=== PATIENT | male | born 1930 | race Caucasian/White ===

== ENCOUNTER 2017-06-23 21:22 | Inpatient (IN) | payer MEDICARE, OTHER ==
[~2017-06-23] VITALS: Ht 165.1 cm; Wt 80.0 kg
[~2017-06-23 21:22] MED LIST: AMLODIPINE BESY10 MG PO; CALCIUM 1,0001 EACH PO; FISH OIL500 MG PO; GLIPIZIDE5 MG PO; LASIX20 MG PO; LASIX40 MG PO; LISINOPRIL20 MG PO; MACULAR VITAMI1 EACH PO; METFORMIN HCL500 MG PO; METOPROLOL SUCC50 MG PO; METOPROLOL TART50 MG PO; OMEPRAZOLE20 MG PO; PERCOCET 7.5-31 EACH PO; PRAVASTATIN SOD20 MG PO; TERAZOSIN HCL10 MG PO; VITAMIN C500 M1 PO; WARFARIN SODIUM5 MG PO
--- NOTE | 2017-06-24 01:00 | NUR ---
UP TO BSC FOR LIQUID STOOL, 200ML DARK RED BLOOD WITH CLOT. C/O SLIGHT DIZZINESS WHILE UP, HR REMAINS 60. THEN BACK TO BED WITH CALL LIGHT IN HAND, SIDE RAILS UP, WILL CALL WITH ANY NEEDS.
--- NOTE | 2017-06-24 01:27 | NUR ---
AWAITING SECOND UNIT OF FFP FROM LAB.
--- NOTE | 2017-06-24 02:38 | NUR ---
UP TO BSC FOR LIQUID DARK RED STOOL APPROX 200ML. SECOND UNIT OF FFP STARTED INFUSING. HR 60, RR 24, ROOM AIR SPO2 97% LAST BP 123/41 MAP 63. IN BED, TRYING TO GO BACK TO SLEEP. CALL LIGHT IN HAND.
--- NOTE | 2017-06-24 04:28 | NUR ---
UP TO BSC FOR LIQUID DARK RED STOOL AND TO VOID. BECAME LIGHTHEADED WHILE UP, HR REMAINS 60'S, BACK TO BED WITH ASSIST. CALL LIGHT IN HAND, WILL CALL WITH FURTHER NEEDS.
--- NOTE | 2017-06-24 04:31 | NUR ---
SECOND UNIT OF FFP HAS JUST FINISHED INFUSING.
--- NOTE | 2017-06-24 05:50 | NUR ---
PT UP TO BSC FOR 250ML LIQUID DARK RED STOOL AND 100ML VOID, PT MORE LIGHTHEADED AND DIZZY THIS TIME "THINGS WERE REALLY SPINNING THERE FOR A WHILE" RECOVERS AFTER APPROX 5 MINUTES. DURING THE TIME BP WAS TAKEN AND WAS 94/32 MAP 48 HR 60. REPEATED ONCE PT BACK IN BED AND IT WAS 127/[address] FERRER CALLED AND UPDATED. AWAITING LAB RESULTS. ORDER GIVEN FOR 500ML LR BOLUS NOW, BOLUS STARTED. PT IN BED, AWAKE, NO COMPLAINTS AT THIS TIME, NO SX AND THIS TIME. HR REMAINS 60, RR 22 96% ON ROOM AIR.
--- NOTE | 2017-06-24 06:12 | NUR ---
LAB RESULTS CALLED TO DR FERRER, ORDER GIVEN TO TRANSFUSE 2 UNITS PRBC.
--- NOTE | 2017-06-24 06:29 | NUR ---
FIRST UNIT OF PRBCS STARTED INFUSING. PT NEEDS TO HAVE ANOTHER BM, PLACED ON BEDPAN.
--- NOTE | 2017-06-24 06:41 | NUR ---
PT CALLED TO UPDATE HER, PLANS TO COME TO HOSPITAL AROUND NINE.
--- NOTE | 2017-06-24 06:56 | NUR ---
PT HAD 100ML RED STOOL ON BEDPAN. FIRST UNIT OF BLOOD CONTINUES TO INFUSE.
--- NOTE | 2017-06-24 07:42 | NUR ---
PT CARE ASSUMED. PT RESTING IN BED. WAKES EASILY TO NURSE IN ROOM. 1ST UNIT OF PRBCS TRANSFUSING. PT STATES NO PAIN OR DIZZINESS AT THIS TIME. NEDIES FURTHER NEEDS.
--- NOTE | 2017-06-24 07:49 | NUR ---
CALL TO LAB REQUSTING ETA OF FFP FOR PT, LAB UNAVAILABLE AT THIS TIME.
--- NOTE | 2017-06-24 08:41 | NUR ---
PT ONTO BED BANGURA FOR POSSIBLE BM. 1ST UNIT PRBCS COMPLETE, SECOND UNIT STARTED. 1ST UNIT OF FFP COMPLETE. PT TOLERATING WELL. LUNGS REMAIN CLEAR.
--- NOTE | 2017-06-24 09:20 | NUR ---
SECOND UNIT OF FFP STARTED. PTS AT BEDSIDE.
--- NOTE | 2017-06-24 10:49 | NUR ---
SECOND UNIT OF BLOOD COMPLETE. PT RESTING, AT BEDSIDE
--- NOTE | 2017-06-24 11:28 | NUR ---
PT RESTING IN BED. AT BEDSIDE. WAKES EASILY TO NURSE IN ROOM. DENIES NEEDS
--- NOTE | 2017-06-24 11:41 | NUR ---
PT REQUESTING TO USE BED BANGURA, NO BM AT THIS TIME.
--- NOTE | 2017-06-24 11:42 | NUR ---
PT IN ROOM USING INSENTIVE SPIROMETRY
--- NOTE | 2017-06-24 12:06 | NUR ---
DR NABIL BEAULIEU'ED PT TO HAVE SMALL AMOUNTS OF ICE CHIPS, ICE GIVEN TO PT.
--- NOTE | 2017-06-24 14:39 | NUR ---
PT UP IN BED VISITING WITH . DENIES NEEDS AT THIS TIME. PT USED URINAL ON OWN.
--- NOTE | 2017-06-24 15:19 | NUR ---
PT REQUESTING BED BANGURA FOR BOWEL MOVEMENT.
--- NOTE | 2017-06-24 15:24 | NUR ---
NO BM OR BLOOD AT THIS TIME.
--- NOTE | 2017-06-24 15:49 | NUR ---
DR JACKSON IN TO SEE PT
--- NOTE | 2017-06-24 16:10 | NUR ---
PT SIGNED CONSENT FOR OR.
--- NOTE | 2017-06-24 16:45 | NUR ---
BOWEL PREP STARTED. PT SITTING UP IN BED. DENIES ANY DIZZINESS AT THIS TIME. WOULD LIKE TO TRY THE BED SIDE COMMODE WHEN IT IS TIME TO START HAVING MORE FREQUENT BMS.
--- NOTE | 2017-06-24 17:37 | NUR ---
pt up to bedside commode for bm, denies dizziness at this time. steady on feet.
--- NOTE | 2017-06-24 18:07 | NUR ---
PT CONTINUES TO SIT ON BEDSIDE COMMODE. PT STATES THAT STOOL CONTINUES TO COME. STATES FEELING SLIGHTLY LIGHTHEADED WHEN MOVING AROUND, THOUGH SAYS HE IS OKAY SITTING STILL. LAB IN UNIT TO DRAW BLOOD WHEN PT IS FINISHED.
--- NOTE | 2017-06-24 19:45 | NUR ---
pt shift report recived from day shift rn. pt resting in bed at this time. all questions answered. will continue to monitor.
--- NOTE | 2017-06-24 20:15 | NUR ---
ASSISSTED PT TO BEDSIDE CAMMODE PT TOLERATED WELL. STOOL LOOSE BROWN IN COLOR WITH LITTLE RED TINGED. PT BOWEL TONES ACITVE. LUNGS CLEAR. PULSES STRONG. PT ALERT AND ORIENTED. CALLS APPORPRIATELY. CALL LIGHT IN REACH. BED IN LOWEST POSITION.
--- NOTE | 2017-06-24 20:45 | NUR ---
wharf labourer to floor to explain lab mistake. wharf labourer entered results as 0614 instead of 181. notified of results and mistake.
--- NOTE | 2017-06-24 22:30 | NUR ---
PT CALLED TO USE BEDSIDE CAMMODE. PT TOLERATED WELL. NO OTHER ISSUES AT THIS TIME. WILL CONTINUE TO MONITOR. CALL LIGHT IN HAND.
--- NOTE | 2017-06-25 | NUR ---
PT NPO AT MIDNIGHT PER ORDERS.
--- NOTE | 2017-06-25 00:15 | NUR ---
PT RESTING IN BED AT THIS TIME. PT DENIES ANY NEEDS. CALL LIGHT IN HAND. WILL COTNINUE TO MONITOR.
--- NOTE | 2017-06-25 01:44 | NUR ---
PT UP TO CAMMODE MULTIPLE TIMES IN LAST HALF HOUR. PT STOOL CLEARING UP MORE. PT TOLERATED WELL. CALLED RT TO LISTEN TO PT. PT HAS A IN WHEEZE NOTED AND ON 1L OXYGEN WITH DEEP SLEEP. NO OTHER ISSUES AT THIS TIME. WILL CONTINUE TO MONITOR.
--- NOTE | 2017-06-25 01:45 | NUR ---
PT DNIES SOB RESPIRATORY RATE 22-24. WHEN I ASKED PT IF HE USES ANYTHING AT HOME TO HELP HIS BREATHING PT STATED "I USE THIS OIL FROM [employer] CALLED [employer] THAT WORKS WLL FOR ME". NO OTHER ISSUES AT THIS TIME WILL CONTINUE TO CLOSELY MONITOR.
--- NOTE | 2017-06-25 03:16 | NUR ---
PT RESTING IN BED. IN TO CHANGE IV FLUIDS. PT IS A LIGHT SLEEPER AND AWOKEN. PT DENEID ANY NEEDS AT THIS TIME. CALL LIGHT IN HAND. WILL CONTINUE TO MONITOR.
--- NOTE | 2017-06-25 04:28 | NUR ---
UPDATED MD REGUARDING PT ON 1L NC AND OCCASIONAL WHEEZE. NEW ORDER FOR PRN DUO NEB NEEDED. UPDATED RT. PT SLEEPING AT THIS TIME. WILL CONTINUE TO MONITOR.
--- NOTE | 2017-06-25 05:13 | NUR ---
UPDATED MD PT RECIVED NEB AND HAS NOW DEVELOPED BILATERAL LOWER LOBES CRACKLES. PT NPO AT THIS TIME. PER MD GIVE LASIX AND STOP FLUIDS AT THIS TIME. WILL CONTINUE TO CLOSELY MONITOR.
--- NOTE | 2017-06-25 06:28 | NUR ---
PT NOW RESTING IN BED WITH OXYGEN AT 1L VIA NC WITH SPO2 93-96%. GAVE PRN NEB AND LASIX. WILL CONTINUE TO CLOSELY MONITOR PT.
--- NOTE | 2017-06-25 07:41 | NUR ---
PT UP TO BEDSIDE COMMODE AND BACK TO BED. DENIES SHORTNESS OF BREATH. PT STATED, "ILL I WANT IS SOMETHING TO DRINK". DISCUSSED PLAN OF CARE AND APPROXIMATE TIME OF SCOPE THIS AM. PT VERBALIZED UNDERSTANDING.
--- NOTE | 2017-06-25 07:49 | NUR ---
RT IN ROOM WITH PT.
--- NOTE | 2017-06-25 08:03 | NUR ---
GAVE PT WARM WASH CLOTH FOR FACE AND MOUTH WASH PER PT REQUEST.
--- NOTE | 2017-06-25 09:03 | NUR ---
PT UP TO BEDSIDE COMMODE AND BACK TO BED. PT HAD SMALL LIQUID STOOL. STOOL MOSTLY CLEAR. NO BLOOD VISIBLE BLOOD IN STOOL.
--- NOTE | 2017-06-25 09:49 | NUR ---
PT RESTING IN BED. DENIES NEEDS AT THIS TIME. CALL LIGHT WITHIN REACH.
--- NOTE | 2017-06-25 11:08 | NUR ---
PT UP TO BEDSIDE COMMODE AND BACK TO BED. PT HAD MILD SHORTNESS OF BREATH WITH ACTIVITY. REMAINS ON 1L NC.
--- NOTE | 2017-06-25 12:15 | NUR ---
PT UP TO BEDSIDE COMMODE AND BACK TO BED. PT COMPLAINED OF SHORTNESS OF BREATH. AUDIBLE WHEEZES HEARD. RT CALLED FOR NEB TREATMENT.
--- NOTE | 2017-06-25 12:50 | NUR ---
PT LEFT FOR SURGERY VIA STRETCHER.
--- NOTE | 2017-06-25 13:26 | NUR ---
06/25/17 1326 Raissa Gu 1324: PT IS BACK IN HIS ROOM IN CCU
--- NOTE | 2017-06-25 13:30 | NUR ---
PT BACK TO ROOM. RECOVERY NURSE AND BONDING AGENT IN ROOM WITH PT.
--- NOTE | 2017-06-25 14:05 | NUR ---
care taken over from recovery nurse Raissa. discussed plan of care with pt and family. will be moving pt to med-surg floor rm 114.
--- NOTE | 2017-06-25 14:06 | NUR ---
pt requesting food. gave warm broth and pudding to start.
--- NOTE | 2017-06-25 14:41 | NUR ---
TRANSFERED PT TO ROOM 114. REPORT GIVEN TO TIFFANY VILLAR.
--- NOTE | 2017-06-25 15:45 | NUR ---
PATIENT TO FLOOR FROM CCU, VS STABLE. PATIENT ORIENTED TO ROOM. FULL BODY ASSESMENT DONE. DINNER ORDER PLACED. PATIENT FAMILY AT BEDSIDE. URINAL WITHIN REACH. DISCUSSED FALL SAFETY AND IMPORTANCE OF CALLING, PATIENT AND FAMILY VERBALIZED UNDERSTANDING.
--- NOTE | 2017-06-25 18:08 | NUR ---
PATIENT TO FLOOR FROM CCU, NO COMPLAINTS OF PAIN. NO EMESIS, OR BLOODY STOOL SINCE BOWEL PREP. UPPER AND LOWER SCOPE DONE TODAY, NO IDENTIFICATION OF SOURCE OF BLEEDING, POSSIBLE DIVERTICULI. VS STABLE. PATIENT AAOX3. URINAL IN REACH. PATIENT ON LASIX FOR SOME FLUID OVERLOAD. CRACKLES IN LUNGS L>R. HX OF AFIB, HAS PACEMAKER.
--- NOTE | 2017-06-25 21:36 | NUR ---
PT LAYING IN BED AND WATCHING TV. NO APPARENT DISTRESS. PLEASENT AND FRIENDLY DEMEANOR. DENIES PAIN, STATES "I HAVENT HAD ANY PAIN EVER, SINCE MARILEE BEEN HERE." PT HAS NO FURTHER NEEDS AT THIS TIME. CALL LIGHT IN REACH.
--- NOTE | 2017-06-25 23:48 | NUR ---
PT APPEARS TO BE SLEEPING. RR WNL AND UNLABORED. LIGHTS AND TV OFF IN ROOM.
--- NOTE | 2017-06-26 03:20 | NUR ---
PT CALLED NURSES STATION WITH CALL LIGHT. REQUESTED TO GET UP TO BATHROOM FOR A BM. PT STATED "IT WAS JUST A BUNCH OF GAS." PT BACK IN BED. NO FURTHER NEEDS AT THIS TIME. CALL LIGHT IN REACH.
--- NOTE | 2017-06-26 04:02 | NUR ---
PT HAD UNEVENTFUL NIGHT. SLEPT MAJORITY OF SHIFT. NO COMPLAINTS OF PAIN OR NAUSEA OVERNIGHT. ALERT AND ORIENTED. USES CALL LIGHT APPROPRIATLY. PLEASENT DEMEANOR.
--- NOTE | 2017-06-26 07:00 | NUR ---
REPORT GIVEN FROM IBRAHIMA VILLAR. INTRODUCED TO PATIENT AND .
--- NOTE | 2017-06-26 07:45 | NUR ---
ROUNDED WITH DR. FERRER IN ROOM. PLAN TO DISCHARGE TODAY.
[2017-06-26] MEDS ORDERED: WARFARIN SODIUM5 MG PO (08:16)
--- NOTE | 2017-06-26 09:57 | NUR ---
AMBULATED PATIENT IN THE H[place]MAN[place] ON RA. PATIENT CONT. TO SAT 94-100 PERCENT WHILE AMBULATING ON RA. PATIENT WAS NOT DIZZY OR LIGHT HEADED WITH AMBULATION.
--- NOTE | 2017-06-26 11:07 | NUR ---
RECIEVED APPOINTMENT FOR [facility] PHARMACY CALLED TO COME VISIT WITH PATIENT.
--- NOTE | 2017-06-26 11:37 | NUR ---
discharge education given to patient and . patient was able to reback information amount coumadin dose and follow up appointment. patient requested to eat fruit plate before getting taxi ride home. call light in bed with patient. to call when done with lunch.
--- NOTE | 2017-06-27 10:18 | CONS ---
[facility] [address], [place] [address] Signed DATE OF CONSULTATION: 06/24/2017 CONSULTING PHYSICIAN: Kevin Jackson MD REQUESTING PHYSICIAN: Risa Brito MD PROBLEM: Hematochezia and anticoagulation with Coumadin. HISTORY OF PRESENT ILLNESS: This 87-year-old white man was admitted by Dr. Brito for lower gastrointestinal bleeding. He is known to me from the past in October of 2015, having had acute cholecystitis as well as postoperative phimosis requiring dorsal slit procedure. He is chronically anticoagulated for Coumadin as he was previously. The patient is chronically anticoagulated related to atrial fibrillation and presented with bright red rectal bleeding since 5:30 in the morning. Had least 12 episodes of bright red blood mixed with stool. Had no associated abdominal pain and absolutely no hematemesis. He was admitted to the intensive care unit, where he was carefully monitored and his anticoagulation reversed with fresh frozen plasma as well as vitamin K. His presenting hematocrit was 27.5 with platelet count of 193,000. Liver enzymes and chem profile were grossly normal, though creatinine is slightly elevated at 1.40. He did have some bleeding since admission, but now that his anticoagulation has been reversed with plasma. He has had no further bleeding. He denies any abdominal pain or dysphagia. He has had no weight loss or bone pain. FAMILY HISTORY: Significant for a sister with colon cancer, who recently . There are other family members as well, none of whom had colon problems. SOCIAL HISTORY: He is accompanied by his daughter and his . He is long retired. He is a former [employer] man. He has essentially all of his medical care from [facility]. REVIEW OF SYSTEMS: No shortness of breath or chest pain. No dysphagia or dysuria. Denies any hematemesis. He has only had blood per rectum. No rectal pain. Electronically Signed By: KEVIN JACKSON MD 06/27/17 1018 PATIENT NAME: DESIREE MCCONNELL CONSULTATION DATE OF : 34 PHYSICIAN: KEVIN JACKSON MD REPORT #: [id number] REPORT IS CONFIDENTIAL AND NOT TO BE RELEASED WITHOUT AUTHORIZATION [facility] [address], [place] [address] Signed PHYSICAL EXAMINATION: GENERAL: Elderly white man. He is alert and oriented in every way. VITAL SIGNS: His pulse is 62, blood pressure 155/50, and respirations 19. Room air O2 saturation 93%. NECK: Shows no thyromegaly or cervical adenopathy. Trachea is midline. CHEST: Shows normal respiratory excursion without tachypnea. HEART: Irregularly irregular. ABDOMEN: Soft and with poor muscle tone, but palpably normal without sign of ascites that I can tell. EXTREMITIES: Show no clubbing, cyanosis, or edema. Review of his medical record shows that he had distant history of possible low-grade ascites and this related to possible hepatic disease. ASSESSMENT: His bleeding has mostly been bright hand. He has had no associated hematemesis or upper gastrointestinal symptoms. He has undergone an upper GI in the past showing a "hernia" (by this, he means a hiatal hernia, I am sure). He has not had a colonoscopy in many years. He is at increased risk of colon cancer on the basis of his sister, who recently from cancer of the colon. The risks of bleeding, infection, and perforation related to colonoscopy were reviewed with the patient and his family. We will plan on clear liquid diet and MiraLAX bowel prep today. Anticipating upper endoscopy and colonoscopy tomorrow under propofol sedation. All of his questions were answered to his complete satisfaction. MD CARLOS Adams/TIFFANYL /[id number] cc: Janie Beltrán NP Electronically Signed By: KEVIN JACKSON MD 06/27/17 1018 PATIENT NAME: DESIREE MCCONNELL CONSULTATION DATE OF : 34 PHYSICIAN: KEVIN JACKSON MD REPORT #: [id number] REPORT IS CONFIDENTIAL AND NOT TO BE RELEASED WITHOUT AUTHORIZATION [facility] [address] [place] [address] [place], [place] [address] Signed Risa Brito MD Electronically Signed By: KEVIN JACKSON MD 06/27/17 1018 PATIENT NAME: DESIREE MCCONNELL CONSULTATION DATE OF : 34 PHYSICIAN: KEVIN JACKSON MD REPORT #: [id number] REPORT IS CONFIDENTIAL AND NOT TO BE RELEASED WITHOUT AUTHORIZATION
--- NOTE | 2017-06-27 10:18 | OR ---
[facility] [address] [place], [place] [address] Signed DATE OF OPERATION: 06/25/2017 SURGEON: Kevin Jackson MD PREOPERATIVE DIAGNOSES: 1. Hematochezia. 2. Known history of hiatal hernia. POSTOPERATIVE DIAGNOSES: 1. Hiatal hernia with Schatzki's ring and small nodules of duodenal bulb (not source of bleeding). 2. Sigmoid diverticulosis. PROCEDURES: 1. Esophagogastroduodenoscopy with biopsy. 2. Total colonoscopy to cecum. ANESTHESIA: Intravenous sedation, propofol infusion by Chuyita King CRNA. INDICATION: This 87-year-old white man has numerous medical problems and is chronically anticoagulated with Coumadin. He was admitted by Dr. Brito on June 23, 2017, with hematochezia. He has undergone an upper GI in the past year or so, said to have a "hernia" and has not had colonoscopy in many years. He has been reversed on his anticoagulation and was transfused 2 units of packed red cells, but still maintains a hematocrit of 24. He has had no significant bleeding in the past 24 hours. He has undergone a full bowel prep and is now to undergo upper endoscopy and colonoscopy. He understands the risks of bleeding, infection, and perforation and wished to proceed. FINDINGS: On upper endoscopy, there was no sign of blood within the stomach or duodenum. The esophagus had a small Schatzki's ring. No sign of esophagitis or Dumont's epithelium. There was a hiatal hernia. The stomach was essentially normal as was the pylorus and duodenum, though the duodenum bulb have some hyperplastic-appearing mucosal nodules. MONICA test was negative. On colonoscopy, the prep was good. Complete colonoscopy was undertaken of the cecum. There were diverticula of the sigmoid colon, and one diverticulum has had possibly a small amount of old clot. There were no other findings of concern in the colon, and I Electronically Signed By: KEVIN JACKSON MD 06/27/17 1018 PATIENT NAME: DESIREE MCCONNELL OPERATIVE REPORT DATE OF : 34 PHYSICIAN: KEVIN JACKSON MD REPORT #: [id number] REPORT IS CONFIDENTIAL AND NOT TO BE RELEASED WITHOUT AUTHORIZATION [facility] [address] [place], [place] [address] Signed suspect his bleeding was related to diverticular bleeding of the sigmoid. DESCRIPTION OF PROCEDURE: The patient was brought to the endoscopy suite, given topical Hurricaine spray hypopharyngeal anesthesia in the lateral decubitus position. Given intravenous sedation to the point of slurred speech and nystagmus with full cardiopulmonary monitoring by the senior information systems architect. A bite block was placed and an Olympus video upper endoscope was passed in the hypopharynx. The vocal cords appeared normal. The scope was advanced to the esophagus. Throughout its length, it was normal except for a small Schatzki's ring. The scope was passed in the stomach, which was insufflated with air. Rugal folds were normal. Antral motility normal and pylorus normal. There was no blood within the stomach. The scope was passed through the pylorus into the duodenum. The 2nd and 3rd portions were normal. The bulbar portion had some superficial hyperplastic-appearing nodules, lead generation representative ones were biopsied. The scope was withdrawn to the antrum, where biopsies were taken for both MONICA and pathologic testing. Retroflexed view was undertaken showing hiatal hernia. The scope was straightened and withdrawn to the distal esophagus, where biopsies were obtained of the Schatzki's ring area and further withdrawal of scope showed no other abnormalities. Additional sedation was given by the senior information systems architect and digital rectal examination was performed. An Olympus video colonoscope was passed in the rectum and manipulated throughout the colon. Diverticular changes were noted in the sigmoid. One of the diverticula had a small amount of bloody mucoid material. The others were normal. The scope was advanced beyond this ultimately to the cecum. The prep was quite good. The ileocecal valve and appendiceal orifice appeared normal, and scope was withdrawn from that point. Examination throughout showed no sign of abnormality other than the diverticula of the sigmoid colon. Retroflexed view of the rectum was normal as well. The scope was removed. The patient was taken to recovery room in good condition. CONCLUDING DIAGNOSIS: Most likely, his GI bleeding was related to a diverticular source. PLAN: He will return to further care in the hospital to initiate a regular diet. Transfusion therapy may still be advisable given his low hematocrit, though he shows no sign of ongoing bleeding. Electronically Signed By: KEVIN JACKSON MD 06/27/17 1018 PATIENT NAME: DESIREE MCCONNELL OPERATIVE REPORT DATE OF : 34 PHYSICIAN: KEVIN JACKSON MD REPORT #: [id number] REPORT IS CONFIDENTIAL AND NOT TO BE RELEASED WITHOUT AUTHORIZATION [address] [address] Signed Kevin Jackson MD JM/MODL /[id number] cc: LILY Dickerson MD Electronically Signed By: KEVIN JACKSON MD 06/27/17 1018 PATIENT NAME: LORNATEREDESIREE Martines OPERATIVE REPORT DATE OF : 34 PHYSICIAN: KEVIN JACKSON MD REPORT #: [id number] REPORT IS CONFIDENTIAL AND NOT TO BE RELEASED WITHOUT AUTHORIZATION
== END 2017-06-26 11:53 | disposition home or self-care (01) | DRG 378 ==
LOC: ED 21:22 → CCU 23:20 → MS 06-25 14:43 → CCU 06-25 14:43 → MS 06-25 14:43 → CCU 06-26 11:53
PROVIDERS: Surgery; ADMIT Internal Medicine
PROC: 30233N1 Transfusion of Nonautologous Red Blood Cells into Peripheral Vein, Percutaneous Approach (ICD-10-PCS; 2017-06-24)
PROC: 0DB68ZX Excision of Stomach, Via Natural or Artificial Opening Endoscopic, Diagnostic (ICD-10-PCS; principal; 2017-06-25 13:00)
PROC: 0DJD8ZZ Inspection of Lower Intestinal Tract, Via Natural or Artificial Opening Endoscopic (ICD-10-PCS; 2017-06-25 13:00)
DX: K57.31 Diverticulosis of large intestine without perforation or abscess with bleeding (principal); D62 Acute posthemorrhagic anemia; I48.2 Chronic atrial fibrillation; E78.5 Hyperlipidemia, unspecified; E11.9 Type 2 diabetes mellitus without complications; K21.9 Gastro-esophageal reflux disease without esophagitis; K22.2 Esophageal obstruction; I12.9 Hypertensive chronic kidney disease with stage 1 through stage 4 chronic kidney disease, or unspecified chronic kidney disease; N18.3 Chronic kidney disease, stage 3 (moderate); Z79.01 Long term (current) use of anticoagulants; Z95.0 Presence of cardiac pacemaker; Z79.4 Long term (current) use of insulin
CPT/HCPCS: 00740; 36415; 36430; 80048; 80053; 83735; 85025; 85610; 85730; 86850; 86900; 86901; 86920; 86927; 88305; 94640; 94760; J2250; J2370; J2704; J3010; J3430; J3475; J7120; P9016

== ENCOUNTER 2018-02-18 20:26 | Emergency (ER) | payer MEDICARE, OTHER ==
[~2018-02-18] VITALS: Ht 165.1 cm; Wt 68.7 kg
--- NOTE | 2018-02-19 05:51 | EKG ---
[facility] [address] [place], [place] [address] Signed Ventricular-paced rhythm Abnormal ECG No previous ECGs available Confirmed by MICKI LOPEZ MD ([id number]) on 02/19/2018 5:50:43 AM Electronically Signed By: MICKI LOPEZ MD 02/19/18 0551 PATIENT NAME: DESIREE MCCONNELL DARWIN Electrocardiogram DATE OF : 34 PHYSICIAN: MICKI LOPEZ MD REPORT #: [id number] REPORT IS CONFIDENTIAL AND NOT TO BE RELEASED WITHOUT AUTHORIZATION
== END 2018-02-18 22:27 | disposition home or self-care (01) ==
LOC: ED 20:26
DX: J20.9 Acute bronchitis, unspecified (principal); I11.0 Hypertensive heart disease with heart failure; I50.9 Heart failure, unspecified; E78.00 Pure hypercholesterolemia, unspecified; Z88.5 Allergy status to narcotic agent; Z79.01 Long term (current) use of anticoagulants; Z79.899 Other long term (current) drug therapy
CPT/HCPCS: 71046; 80053; 81001; 83605; 83735; 83880; 84484; 85025; 85610; 85730; 93005; 93010; 94640; 99283

== ENCOUNTER 2018-08-22 12:38 | Observation (INO) | payer MEDICARE, OTHER ==
[~2018-08-22] VITALS: Ht 165.1 cm; Wt 72.3 kg
[~2018-08-22 12:38] MED LIST changes: -CALCIUM 1,0001 EACH PO; +CALCIUM 600 MG1 EACH PO; -LASIX20 MG PO; -PRAVASTATIN SOD20 MG PO; +PRAVASTATIN SOD80 MG PO
[2018-08-22] MEDS ORDERED: ELIQUIS5 MG PO (14:35)
[2018-08-22] MEDS ORDERED: METFORMIN HCL500 MG PO (14:38)
[2018-08-22] MEDS ORDERED: COREG25 MG PO (14:40)
--- NOTE | 2018-08-22 15:58 | EKG ---
[facility] [address] [place], [place] [address] Signed Ventricular-paced rhythm Abnormal ECG When compared with ECG of 18-FEB-2018 20:31, No significant change was found Confirmed by GUILLERMO DIAZ DO ([id number]) on 08/22/2018 3:57:51 PM Electronically Signed By: GUILLERMO DIAZ DO 08/22/18 1558 PATIENT NAME: ENEDINADESIREE Electrocardiogram DATE OF : 34 PHYSICIAN: GUILLERMO DIAZ DO REPORT #: [id number] REPORT IS CONFIDENTIAL AND NOT TO BE RELEASED WITHOUT AUTHORIZATION
--- NOTE | 2018-08-22 19:38 | NUR ---
PT ARRIVED VIA STRETCHER WITH AND DAUGHTER. RR IS EVEN AND NONLABORED. GENERAL MANAGER IN TRAINING IS GETTING PT ORIENTED TO UNIT AND STARTING ADMISSION HX.
--- NOTE | 2018-08-22 21:50 | NUR ---
IN ROOM TO ASSESS PT AND ADMINISTER MEDICATION. PT DENIES PAIN AT THIS TIME. PT REPORT ZOFRAN HAS IMPROVED HIS NAUSEA. HE IS ABLE TO CARRYON CONVERSATION BUT COVERS HIS EYES AT TIMES. PT REPORTS USING A CANE AT BASELINE NO EDEMA NOTED BUT PT REPORTS TAKING A DILURETIC AT HOME. PT DENIES FURTHER NEEDS, CALL LIGHT IS WITHIN REACH.
--- NOTE | 2018-08-22 22:56 | NUR ---
PT IS RESTING WITH EYES CLOSED, RESPIRATIONS ARE EVEN AND NONLABORED. CALL LIGHT IS WITHIN REACH.
--- NOTE | 2018-08-23 00:30 | NUR ---
PT ASSISTED TO BSC BY NOVEMBER PHOTO FINISH PHOTOGRAPHER.
--- NOTE | 2018-08-23 01:30 | NUR ---
HELPED PT TO THE BSC AND BACK TO BED. CALL LIGHT AND BEDSIDE TABLE NEXT TO HIM. PT NEEDS NOTHING MORE AT THIS TIME.
--- NOTE | 2018-08-23 02:12 | NUR ---
PT IS RESTING WITH EYES CLOSED, RESPIRATIONS ARE EVEN AND NONLABORED. CALL LIGHT IS CLOSE.
--- NOTE | 2018-08-23 03:30 | NUR ---
HELPED PT TO THE BSC 1PA AND BACK TO BED, PT DENIES FURTHER NEEDS. CALL LIGHT IS WITHIN REACH.
--- NOTE | 2018-08-23 04:09 | NUR ---
PT'D DAUGHTER CALLED TO SAY SHE FORGOT TO TELL US HE HAS CHF AND KIDNEY DISEASE AND REQUESTED WE STOP HIS FLUIDS. TOLD PT WE WOULD NOTIFY THE
--- NOTE | 2018-08-23 04:30 | NUR ---
WHEN PT ARRIVED HE HAS NAUSEA AND REQUIRED ZOFRAN FROM THE DIZZINESS. BY 0400 WHEN HE SAT UP TO USE THE BSC HE HAD A LITTLE DIZZINESS BUT IT PASSED QUICKLY AND HE DENIES NAUSEA. PT'S DAUGHTER IS CONCERNED ABOUT HIM BEING ON IV FLUIDS, A MESSAGE WAS SENT TO DR. DIAZ TO PASS ALONG HER CONCERNS. PT IS ON TELE 7 AND IS PACED. HE PIVOTS TO THE BSC BUT REPORTS USING A CANE AT HOME. HE IS ON AN ADA DIET WITH ACCUCHECKS.
--- NOTE | 2018-08-23 06:55 | NUR ---
PT IS AWAKE IN BED, HE STATES HIS HEAD IS FEELING PRETTY GOOD AND HE DENIES ANY SOB. HE IS LOOKING AT THE BREAKFAST MENU AND DENIES FURTHER NEEDS AT THIS TIME. CALL LIGHT IS WITHIN REACH.
--- NOTE | 2018-08-23 07:10 | NUR ---
BEDSIDE HANDOFF REPORT RECEIVED FROM DAIRY EQUIPMENT INSTALLER RN. PT RESTING IN BED. PT DENIES NEEDS AT THIS TIME.
--- NOTE | 2018-08-23 09:30 | NUR ---
PT SITTING IN CHAIR. PT ON ROOM AIR, DENIES SOB, LUNG SOUNDS CLEAR. PT DENIES PAIN. PT STATES HE HAS OCCASSIONAL DIZZINESS WHILE SITTING, BUT IT PASSED QUICKLY. PT DENIES NAUSEA, TOLERATING DIET. PT WITHOUT EDEMA, PULSES STRONG THROUGHOUT. MORNING MEDICATIONS AND ASSESSMENT COMPLETED. PT DENIES OTHER NEEDS AT THIS TIME.
--- NOTE | 2018-08-23 10:44 | NUR ---
PT COMPLETED WITH P.T., IV MAGNESIUM INFUSION BEGAN.
[2018-08-23] MEDS ORDERED: THERA-M CAPLET1 EACH PO (10:47)
[2018-08-23] MEDS ORDERED: ALDACTONE25 MG PO (10:47)
[2018-08-23] MEDS ORDERED: IRON325 M1 PO (10:48)
--- NOTE | 2018-08-23 11:44 | NUR ---
PT SITTING IN CHAIR, FAMILY GATHERED AROUND. HE IS ALERT AND ORIENTED AND HE DID SAY THAT HE IS FEELING MUCH BETTER-PLANS TO BE DC'D TODAY. VERY PLEASANT CONVERSATION, THANKED ME FOR VISITING AND SHOOK MY HAND. GAVE BLESSING, WILL FOLLOW NEEDED
--- NOTE | 2018-08-23 11:46 | NUR ---
MED REC COMPLETE
--- NOTE | 2018-08-28 11:36 | NUR ---
FAXED CHART NOTES INCLUDING FACE SHEET, ORDER, ER SUMMARY AND NOTES, H AND P, DC SUMMARYM PT AND OT NOTES TO [facility] OP PT. RECIEVED FAX CONFIRMATION NOTE. ALSO SPOKE WITH VICTOR HUGO FROM THERE AND SHE STATES PT HAS APPT FOR 09/04/18.
== END 2018-08-23 12:25 | disposition home or self-care (01) ==
LOC: ED 12:38 → MS 12:42
PROVIDERS: ADMIT Student in an Organized Health Care Education/Training Program
DX: H81.10 Benign paroxysmal vertigo, unspecified ear (principal); E11.22 Type 2 diabetes mellitus with diabetic chronic kidney disease; I13.0 Hypertensive heart and chronic kidney disease with heart failure and stage 1 through stage 4 chronic kidney disease, or unspecified chronic kidney disease; N18.9 Chronic kidney disease, unspecified; I50.9 Heart failure, unspecified; D64.9 Anemia, unspecified; K21.9 Gastro-esophageal reflux disease without esophagitis; I25.10 Atherosclerotic heart disease of native coronary artery without angina pectoris; I48.91 Unspecified atrial fibrillation; Z88.5 Allergy status to narcotic agent; Z87.891 Personal history of nicotine dependence; Z95.0 Presence of cardiac pacemaker; Z86.73 Personal history of transient ischemic attack (TIA), and cerebral infarction without residual deficits; Z79.84 Long term (current) use of oral hypoglycemic drugs; Z79.02 Long term (current) use of antithrombotics/antiplatelets; Z79.899 Other long term (current) drug therapy
CPT/HCPCS: 36415; 70450; 70496; 70498; 80048; 80053; 83735; 84484; 85025; 93005; 93010; 96361; 96374; 96375; 97162; 99285-25; G0378; J2405; J3475; J7120; Q9967

== ENCOUNTER 2019-09-26 08:56 | Emergency (ER) | payer MEDICARE, OTHER ==
[~2019-09-26] VITALS: Ht 165.1 cm; Wt 69.0 kg
[~2019-09-26 08:56] MED LIST changes: +ALDACTONE25 MG PO; +ALLOPURINOL100 MG PO; +COREG25 MG PO; +DOXYCYCLINE HY100 MG PO; +ELIQUIS2.5 MG PO; +IRON325 M1 PO; +THERA-M CAPLET1 EACH PO; +VITAMIN C250 MG PO; -VITAMIN C500 M1 PO; +VITAMIN E400 UNI5 PO
== END 2019-09-26 11:15 | disposition home or self-care (01) ==
LOC: ED 08:56
DX: I13.0 Hypertensive heart and chronic kidney disease with heart failure and stage 1 through stage 4 chronic kidney disease, or unspecified chronic kidney disease (principal); E11.22 Type 2 diabetes mellitus with diabetic chronic kidney disease; N18.9 Chronic kidney disease, unspecified; D64.9 Anemia, unspecified; D69.6 Thrombocytopenia, unspecified; Z86.73 Personal history of transient ischemic attack (TIA), and cerebral infarction without residual deficits; Z87.891 Personal history of nicotine dependence; Z88.5 Allergy status to narcotic agent; Z79.899 Other long term (current) drug therapy; Z79.84 Long term (current) use of oral hypoglycemic drugs
CPT/HCPCS: 36415; 80053; 81001; 83880; 85025; 99284

== ENCOUNTER 2019-12-21 14:36 | Emergency (ER) | payer MEDICARE ==
[~2019-12-21] VITALS: Ht 165.1 cm; Wt 63.6 kg
--- OUTSIDE RECORDS SUMMARY | ~2019-12-21 | XMS | Encounter Summary ---
Demographics + + + | Address | [address] | | | [place] [address] | + + + | Home Phone | | + + + | Preferred Language | Unknown | + + + | Marital Status | | + + + | Presybeterian Affiliation | 1001 | + + + | Race | Unknown | + + + | Ethnic Group | Unknown | + + + Author + + + | Author | [facility] | | | and [place] | + + + | Organization | [facility] | | | and [place] | + + + | Address | Unknown | + + + | Phone | Unavailable | + + + Support + + + + + | Name | Relationship | Address | Phone | + + + + + | Marissa Oconnorrishilaila | ECON | [address] | | | | | [place] | | | | | [address] | | + + + + + | Deanna Lawson | ECON | Unknown | | + + + + + Care Team Providers + +------+ + | Care Sign Writer Hand Name | Role | Phone | + +------+ + | Barbara Gilman MD | PCP | | + +------+ + Reason for Referral Diagnostic/Screening (Routine) + +--------+ + + + + | Status | Reason | Specialty | Diagnoses / | Referred By | Referred To | | | | | Procedures | Contact | Contact | + +--------+ + + + + | Pending | | Radiology | Diagnoses | Darek, | | | Review | | | Permanent | Abril, | | | | | | atrial | FINAL FINISHER [address] | | | | | | fibrillation | [address] | | | | | | (HCC) | [place] | | | | | | Presence of | [place] | | | | | | cardiac | [id number] | | | | | | pacemaker | Phone: | | | | | | Chronic | [phone] | | | | | | diastolic | Fax: | | | | | | heart | [phone] | | | | | | failure | | | | | | | (HCC) | | | | | | | Dilated | | | | | | | aortic root | | | | | | | (HCC) | | | | | | | Moderate to | | | | | | | severe | | | | | | | pulmonary | | | | | | | hypertension | | | | | | | (HCC) | | | | | | | Moderate | | | | | | | tricuspid | | | | | | | regurgitatio | | | | | | | n | | | | | | | Procedures | | | | | | | ECHO | | | | | | | Complete | | | + +--------+ + + + + Reason for Visit + + + | Reason | Comments | + + + | Follow-up, Office | 3 month | | Visit | | + + + Encounter Details +--------+---------+ + + + | Date | Type | Department | Care Team | Description | +--------+---------+ + + + | 06/27/ | Office | [facility] | Charlee Oswald | 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) | | | | [address] | [place] | (Primary Dx); | | | | [address] | [place] [address] | Cardiac pacemaker in | | | | [place], [place] | [phone] | situ; Chronic | | | | [address]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 | | | | [phone] | | failure (HCC); | | | | | | Dilated aortic root | | [...] | | | | | | regurgitation; Stage | | | | | | 3 chronic kidney | | | | | | disease (HCC); Type | | | | | | 2 diabetes mellitus | | | | | | without | | | | | | complication, | | | | | | without long-term | | | | | | current use of | | | | | | insulin (HCC); | | | | | | History of stroke; | | | | | | On apixaban therapy | +--------+---------+ + + + Social History + +-------+ +--------+------+ | Tobacco Use | Types | Packs/Day | Years | Date | | | | | Used | | + +-------+ +--------+------+ | Former Smoker | | 0.75 | | | + +-------+ +--------+------+ + +---+---+---+ | Smokeless Tobacco: | | | | | Never Used | | | | + +---+---+---+ + + + | Sex Assigned at [...] + + + | Blood Pressure | 126/52 | 06/27/2019 11:10 AM | | | | | PST | | + + + + + | Pulse | 60 | 06/27/2019 11:10 AM | | | | | PST | | + + + + + | Temperature | - | - | | + + + + + | Respiratory Rate | - | - | | + + + + + | Oxygen Saturation | 99% | 06/27/2019 11:10 AM | | | | | PST | | + + + + + | Inhaled Oxygen | - | - | | | Concentration | | | | + + + + + | Weight | 72 kg (158 lb 11.2 | 06/27/2019 11:10 AM | | | | oz) | PST | | + + + + + | Height | 165.1 cm (5' 5") | 06/27/2019 11:10 AM | | | | | PST | | + + + + + | Body Mass Index | 26.41 | 06/27/2019 11:10 AM | | | | | PST | | + + + + + documented in this encounter Patient Instructions Patient Instructions Charlee sOwald FNP - 06/27/2019 11:00 [facility] bronchitis Call The kidney doctors for appointment as you are due to for followup See me back in 4months, but sooner if needed Get echo done in September 1 2:08 PM PST documented in this encounter Progress Notes Darek Abril, FNP - 06/27/2019 11:00 AM PSTFormatting of this note might be differe nt from the original. Date of visit: 06/28/2019 Primary Care Physician: Barbara Gilman MD CHIEF COMPLAINT: Chief Complaint Patient presents with Follow-up, Office Visit 3 month HISTORY OF PRESENT ILLNESS: Mr. Andres Guzmán is an 89-year-old man who is here today for 3-month follow-up. He is accompanied today by his Marissa who contributed to history. He has a history of chronic atrial fibrillation, stroke in 2006 stroke with right leg weak ness with [...] reported by him as being negative His [id number]- VASC score is 6( HTN, age, stroke, DM) and now anticoagulated on Eliquis 2 .5 mg bid for renal dosing. His pacemaker had reached end of battery life on December 28, 2018 and it was replaced by Dr. Thompson 2018, and he last followed up with him 05/07/2019, and note reviewed , and no med ication changes. His current and previous testing and procedures are detailed below. I saw him last 03/25/2019 , and decreased his furosemide to 6 days per week for occasional lightheadedness, and decline in renal function until he followed up with nephrology [facility] [employer] [employer] Rajput on 04/05/2019, and told him to avoid dehydration and working outside in the [facility] heat. He reports today that he did not tolerate missing 1 day of diuretic, and has developed i ncreased pedal edema and shortness of breath, and has gone back to 7 days a week dosing. He reports only occasional low blood pressures and only rare lightheadedness. He does report occasional nosebleeds with the air being more dry, and also noticed that his chronic bronchi tis has been worsened with cold air, but does not have a daily inhaler, or as needed albuter ol inhaler, but is [facility]. He reports today that he continues to feel considerably improved since his generator Home Inventory S[pecialists, as he had felt quite symptomatic when battery was at end-of-life. He denies any chest pain, dyspnea, or syncope. He also denies any signs or symptoms of stroke or TIA the emergency room visits or hospitalizations since last seen He continues to be euvolemic, and his weight has remained down almost 40 lbs from 192 poun ds in 07/2017. He did bring his medication bottles to the clinic today, and I reviewed them perso siobhan, and [facility] His only new medications is all opurinol for gout. He reports his blood sugar at home is in the 98-120 range. He also reports he has now established with a new local PCP, Rosa Elena Barrios. REVIEW OF SYSTEMS: Negative except for pertinent items noted in HPI. Constitutional: Denies fatigue or unexplained weight loss. Appetite is good. Weight down almost 40 pounds from 192 pounds 07/2017. .Denies night [...] study performed i 2017 showed no sleep apnea Cardiovascular: Denies chest pain, palpitations, lower extremity [...] Neurological: Reports of Vertigo, see HPI> CVA 2007 Originally right sided leg weakness, resolved. Residual [...] recreational or illicit drug use. Exercises with [employer] and [employer] work, tolerates without chest pain or dyspnea. 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 to Marissa . Outpatient Medications Prior to Visit Medication Sig Dispense Refill allopurinol (ZYLOPRIM) 100 mg tablet Take 1 tablet by mouth daily. 90 tablet 3 apixaban (ELIQUIS) 2.5 mg tablet Take 1 tablet by mouth 2 (two) times daily. 60 tablet 11 ascorbic acid (VITAMIN C) 500 MG tablet [...] di fferently: Take 40 mg by mouth Daily.) lisinopril (PRINIVIL, ZESTRIL) 20 mg tablet Take 20 mg by mouth 2 (two) times daily. meclizine (ANTIVERT) 25 mg tablet Take 1 tablet by mouth 3 (three) times daily as neede d. (Patient taking differently: Take 25 mg by mouth 3 times daily as needed (takes rarely).) 90 tablet 0 metFORMIN (GLUCOPHAGE) 500 mg tablet Take 500 mg by mouth 3 (three) times daily. pravastatin (PRAVACHOL) 80 MG tablet Take 40 mg by mouth nightly. raNITIdine (ZANTAC) 150 mg tablet Take 1 tablet by mouth 2 (two) times daily. 60 tablet 11 spironolactone (ALDACTONE) 25 mg tablet Take 1 tablet by mouth 2 (two) times daily. (Pa efraín taking differently: Take 25 mg by mouth Daily.) 60 tablet 11 terazosin (HYTRIN) 10 MG capsule Take 10 mg by mouth daily with dinner. No facility-administered medications prior to visit. PHYSICAL EXAM: Wt Readings from Last 3 Encounters: 06/27/19 72 kg (158 lb 11.2 oz) 05/07/19 72.6 kg (160 lb) 04/05/19 70.6 kg (155 lb 11.2 oz) Temp Readings from Last 3 Encounters: 02/11/19 36.7 C (98.1 F) 02/04/19 36.4 C (97.5 F) 07/29/17 36.2 C (97.2 F) BP Readings from Last 3 Encounters: 06/27/19 126/52 05/07/19 110/44 04/05/19 130/58 Pulse Readings from Last 3 Encounters: 06/27/19 60 05/07/19 60 04/05/19 66 GENERAL: Well developed, well nourished, appears tired and pale today. Appears approximat danelle stated age. HEENT: Normocephalic, atraumatic. Bilateral hearing aids EYES: PERRL, EOM normal. Glasses MOUTH: Oral mucosae moist, poor dentition no lesions noted NECK: No JVD, lymphadenopathy, thyromegaly, bruits. Carotid pulses are 2+ bilaterally LUNGS: clear to auscultation , no wheezing, no rales, or rhonchi noted, respirations unlab ored HEART: [facility] pacemaker site well Healed, stable to palpation. [...] 122 (A) 04/01/2019 BUN 41 (A) 04/01/2019 BCR 24.4 04/01/2019 EGFR 39 (A) 04/01/2019 Lab Results Component Value Date GLUF 122 (A) 04/01/2019 Lab Results Component Value Date BNP 506 (H) 07/26/2017 No results found for: TOTEPI CARDIAC PROCEDURES/IMAGING Last stress test, 09/08/2015: Lexiscan, perfusion images NML, LVEF 64%. PACER: Last Pacemaker implant : 02/04/2019: ( Dr. Thompson) : new [employer] Accolade MRI com patible model L310, serial #[id number] pacemaker. The current lead is a [employer] model 4136, serial #[id number].Mode for pacing, VVIR with dual-sensor technology programmed on. T he lower rate will be 60 and upper rate 120beats per minute. The output will be 2 volts at 0.4 milliseconds with sensitivity of 2.5 millivolts. Pacing and sensing will be bipolar Previous Implant Pacemaker/ICD: 07/30/2010, BS Altrajinder S601, SN: [id number]. [facility]. Last pacer interrogation: 05/07/2019: ( Dr. Thompson) : Normal device function was seen today f or this [employer] single-chamber device. The pacing threshold was 0.6 V at 0.6 ms and 0.4 ms at 0.7 V. He was left at 2 V at 0.5 ms. There has been no arrhythmias. He i s pacemaker dependent and feels poorly without any pacing..Battery longevity : 9.5 years VVI R 60-120 bpm ECHO: Last Echo: 09/27/2018: ([facility]): Paced rhythm. Technically adequate study. EF 60 percent. LV normal in size and wall thickness. Basal inferior and anteroseptal hypokinesis. Moderate R VE (3.8-4.1 cm), mildly impaired RV systolic function. Pacer wires in RA/RV. Moderate biat rial enlargement. Aortic valve mildly calcified, mild AI, no evidence of aortic stenosis, t rileaflet, mildly thickened aortic pressure half-time 650 ms. Mild MR, mild MAC. Tricuspid valve normal moderate TR. Severe pulmonary hypertension, RVSP 61.24 mmHg. Pulmonic valve normal, trace PI. No pericardial or pleural effusion. IVC WNL, normal CVP. Aortic root di lated showing up to 40 mm, compared to previous study no significant change, except less pul monary hypertension Echo:07/26/2017: [facility]: EF >70 percent. LV normal in [...] Pulmonary HTN. EKG/EVENT MONITOR ECG, 10/30/2015 ([facility]): VVI-pacing, frequent PVC's. EK11/28: Ventricular paced rhythm [...] PHS 75,TOTAL BILI 0.6,ALB 3.9 Labs: 02/18/2018: ([facility] ER). CBC: WBC 6.2, RBC 3.46, [...] 73. Thyroid: TSH 3.55 Labs: 08/23/2018: ( [facility] ER): CBC: WBC 6.6, RBC 2.92, hemoglobin [...] hemoglobin 9, hematocrit 26.9, platelets 12 1 ASSESSMENT & PLAN: He is here today with his for 3-month follow-up. He has problems as detailed below. As discussed in HPI, he did not tolerate missing 1 day of diuretic dosing, but overall feel s that he has improved since last seen as now seldom lightheaded, and only very rarely hypot ensive. He had a recent clinic visit with regional director of finance Dr. Thompson, and pacemaker has stable d evice function, as detailed above, and he continues to feel considerably improved since his generator changed I made no changes to cardiac medications today, and have continued carvedilol 25 mg twice daily for heart failure, spironolactone 25 mg daily for heart failure, Eliquis 2.5 m g bid for stroke prevention with renal dosing, terazosin 10 mg daily for hypertension, Prava chol 40 mg qhs for hyperlipidemia,and lisinopril 20 mg bid for heart function and hypertens ion. I have ordered him an updated echo to evaluate his cardiomyopathy, diastolic heart felecia lure, as well as moderate to severe pulmonary hypertension, and dilated Aortic root. . His echo will be performed at [facility] in September, and I will follow-up with him in October about the results, but sooner if needed. I will also have him establish care with Dr. Dina Sanchez in future for primary cardiolo gist, as well as seeing me, and will discuss with him when I see him back in October. 1. Permanent atrial fibrillation 2. Cardiac pacemaker in situ 3. Chronic diastolic heart failure (HCC) 4. Dilated aortic root (HCC) 5. Hypertension goal BP (blood pressure) < 140/80 6. Mixed hyperlipidemia 7. 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 Moderate tricuspid regurgitation 9. Stage 3 chronic kidney disease (HCC) 10. Type 2 diabetes mellitus without complication, without long-term current use of insulin (HCC) 11. History of stroke 12. On apixaban therapy Orders Placed This Encounter Procedures ECHO Complete The following portions of the patient's history were personally reviewed by me and updated as appropriate: EKG tracings, other specialty provider and PCP notes,any Hospital admission and discharge summaries, any ER records , current and previous cardiac testing and procedure reports and d rowena, home heart rate and blood pressure log, medication bottles brought to visit today pers onally reviewed by me. Allergies, current medications.labs Family history, past medical history, past social history, past surgical history. Problem list. This encounter was dictated with voice recognition software and may contain inadvertent rec ognition errors. Maximilian MCCONNELL [facility] Cardiology 06/28/2019 Apurva orozco in this encounter Plan of Treatment +--------+ + + + + | Date | Type | Specialty | Care Team | Description | +--------+ + + + + | 01/21/ | Office | Cardiology | Dina Sanchez DO | | | 2019 | Visit | | [address] | | | | | | [place], [place] | | | | | | [id number] | | | | | | | | +--------+ + + + + | 02/09/ | Procedure | Cardiology | | | | 2019 | visit | | | | +--------+ + + + + | 03/09/ | Office | Nephrology | Isiah Jade MD | | | 2019 | Visit | | [address] [place] | | | | | | [address] [facility] | | | | | | [address] | | | | | | | | +--------+ + + + + + + +--------+ + + | Name | Type | Priori | Associated Diagnoses | Order Schedule | | | | ty | | | + + +--------+ + + | ECHO Complete | Echocardiog | Routin | Permanent atrial | Expected: | | | anthony | e | fibrillation (HCC) | 09/27/2019, Expires: | | | | | Cardiac pacemaker in | 06/27/2020 | | | | | situ Chronic | | | |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 | | | | | | failure (HCC) | | | | | | Dilated aortic root | | | | | | ([facility]) Moderate to | | | | | | severe pulmonary | | | | | | hypertension ([facility]) | | | | | | Moderate tricuspid | | | | | | regurgitation | | + + +--------+ + + documented as of this encounter Visit Diagnoses + + | Diagnosis | + + | Permanent atrial fibrillation (HCC) - Primary Atrial fibrillation | + + | Cardiac pacemaker in situ | + + | Chronic diastolic heart [...] of tricuspid valve | + + | Stage 3 chronic kidney disease (HCC) | + + | Type 2 diabetes mellitus without complication, 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) | + + | History of stroke Transient ischemic attack (TIA), and cerebral infarction without | | residual deficits | + + | On apixaban therapy | + + documented in this encounter
--- OUTSIDE RECORDS SUMMARY | ~2019-12-21 | XMS | Encounter Summary ---
Demographics + + + | Address | [address] | | | [place] [address] | + + + | Home Phone | | + + + | Preferred Language | Unknown | + + + | Marital Status | | + + + | Jainism Affiliation | 1001 | + + + | Race | Unknown | + + + | Ethnic Group | Unknown | + + + Author + + + | Author | [facility] | | | and [place] | + + + | Organization | [facility] | | | [...] [place] | | | | | [address] | | + + + + + | Deanna Lawson | ECON | Unknown | | + + + + + Care Team Providers + +------+ + | Care Spray Cementer Name | Role | Phone | + +------+ + | Barbara Gilman MD | PCP | | + +------+ + Encounter Details +--------+ + + + + | Date | Type | Department | Care Team | Description | +--------+ + + + + | 01/25/ | Orders Only | [facility] | Conversion | | | 2018 | | CONVERSION DEP [address] | Transaction, | | | | | [address] | Provider Unknown | | | | | [place], [place] | [phone] | | | | | [address] | | | | | | [phone] | | | +--------+ + + + [...] [place] | | | | | | [address] | | | | | | | | +--------+ + + + + | 02/09/ | Procedure | Cardiology | | | | 2019 | visit | | | | +--------+ + + + + | 03/09/ | Office | Nephrology | Isiah Jade MD | | | 2019 | Visit | | [address] [facility] | | | | | | [address] [place] | | | | | | [address] | | | | | | | | +--------+ + + + + documented as of this encounter Visit Diagnoses Not on filedocumented in this encounter"
--- OUTSIDE RECORDS SUMMARY | ~2019-12-21 | XMS | Clinical Summary ---
Demographics + + + | Address | [address] | | | [place] [address] | + + + | Home Phone | | + + + | Preferred Language | Unknown | + + + | Marital Status | | + + + | Jain Affiliation | 1001 | + + + | Race | Unknown | + + + | Ethnic Group | Unknown | + + + Author + + + | Author | [facility] | | | and [place] | + + + | Organization | [facility] | | [...] [place] | | | | | [address] | | + + + + + | Deanna Lawson | ECON | Unknown | | + + + + + Care Team Providers + +------+ + | Care Cover Seamer Name | Role | Phone | + [...] | | + + + +---------+------+------+-------+ | metFORMIN | Take 500 mg by mouth | | 0 | 09/0 | | Activ | | (GLUCOPHAGE) 500 mg | 3 (three) times | | | 4/20 | | e | | tablet | daily. | | | 14 | | | [...] by mouth every other | | | 7/20 | | e | | | day. | | | 18 | | | + + + +---------+------+------+-------+ | carvedilol (COREG) | Take 1 tablet by | 60 | 11 | 11/0 | | Activ | | 25 mg tablet | mouth 2 (two) times | tablet | | 5/20 | | e | | | daily with meals. | | | 18 | | | [...] 11:54 AM | +---+ + + + +--------+---+------+------+-------+ | allopurinol | Take 1 tablet by | 90 | 3 | 05/2 | | Activ | | (ZYLOPRIM) 100 mg | mouth daily. | tablet | | 12/08 | | e | | tablet | | | | 19 | | | + + +--------+---+------+------+-------+ | furosemide (LASIX) | Take 40 mg by mouth | | 0 | 08/0 | | Activ | | 40 mg tablet | 6 days per week. | | | 01/07 | | e | | | | | | 19 | | | + + +--------+---+------+------+-------+ | apixaban (ELIQUIS) | Take 1 tablet by | 60 | 0 | 03/0 | | Activ | | 2.5 mg tablet | mouth 2 times daily. | tablet | | 05/10 | | e | | | For stroke | | | 20 | | | | | prevention | | | | | | + + +--------+---+------+------+-------+ | spironolactone | Take 25 mg by mouth | | 0 | | 04 | Disco | | (ALDACTONE) 25 mg | Daily. | | | | 11/07 | ntinu | | tablet | | | | | 20 | ed | | | | | | | | (Side | | | | | | | | | | | | | | | | effec | | | | | | | | ts) | + + +--------+---+------+------+-------+ Active Problems + + + | Problem | Noted Date | + + + | On apixaban therapy | 06/27/2019 | + + + + + | Overview: His [id number]- VASC score is 6( HTN, age, stroke, [...] | 09/13/2018 | + + + | Stage 4 chronic kidney disease | 09/13/2018 | + + + | [...] + | Type 2 diabetes mellitus without complication | 06/04/2015 | + + + | Permanent atrial fibrillation | 04/24/2014 | + + + + + | Overview: Permanent A. Fib. The left atrium was markedly | | dilated and he had severe pulmonary hypertension(75mm)on an echo | | on July 26, 2017. The LV systolic function was normal. There | | was mild concentric LVH. He has a single-chamber [place] | | Scientific ventricular pacemaker that is [...] + + | Overview: He has a [place] [employer] Altrua single-chamber | | RV pacemaker [...] battery checks will be initiated. August | | 2018: Appropriate device function was seen [...] was seen | | today for this [place] [employer] single-chamber device. The | | pacing threshold [...] | +--------+ + + + + | 04/13/ | Telephone | Cardiology | Charlee Oswald | Testing | | 2020 | | | Gissel MARSHAL | | +--------+ + + + + | 11/27/ | Virtual | Cardiology | Charlee Oswald | Cardiac pacemaker in | | 2019 | Office | | MARSHAL Chauhan | situ (Primary Dx); | | | Visit | | | 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 (HCC); | | | | | | Chronic diastolic | | | | | | heart failure (HCC); | | | | | [...] apnea | +--------+ + + + + | 11/10/ | Procedure | Cardiology | | Cardiac pacemaker in | | 2019 | visit | | | situ (Primary Dx) | +--------+ + + + + | 10/27/ | Office | Cardiology | Charlee Oswald | 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 | Visit | | MARSHAL Chauhan | fibrillation (HCC) | | | | | | (Primary Dx); | | | | | | Cardiac pacemaker in | | | | | | situ; Chronic | | | | | | [...] apnea | +--------+ + + + + from [...] + | Father | | | [place]F, [place] | | | | (Age | | [...] + + | Sister | | | [place] | | | | (Age | | | | | 83) | | + +------+ + + | Sister | | | colon cancer | | | | (Age | | | | | 88) | | + +------+ + + | Sister | | | | + +------+ + + Social [...] recent travel history available. | + + Last Filed Vital Signs + [...] + + + + | Temperature | 36.7 C (98.1 F) | 02/11/2019 2:39 PM | | | | | PDT | | + + + + + | Respiratory Rate | 18 | 03/25/2019 1:01 PM | | | | | PDT [...] + + + + Plan of Treatment +--------+ + + + + | Date | Type | Specialty | Care Team | Description | +--------+ + + + + | 01/21/ | Office | Cardiology | Dina Sanchez DO | | | 2019 | Visit | | [address] | | | | | | [place] | | | | | | [address] | | | | | | | | +--------+ + + + + | 02/09/ | Procedure | Cardiology | | | | 2019 | visit | | | | +--------+ + + + + | 03/09/ | Office | Nephrology | Isiah Jade MD | | | 2019 | Visit | | [address] [facility] [place] | | | | | | [address] [place] | | | | | | [address] | | | | | | | | +--------+ + + + + + + + + + | Health Maintenance | Due Date | Last Done | Comments | + + + + + | Vaccine: | | | | | Dtap/Tdap/Td (1 - | 3 | | | | Tdap) | | [...] | 7 | | | | of 2 - PCV13) | | | | + + + + + | Hemoglobin A1c | | 07/26/2017 | | | Screening | 8 | | | + + + + + | Adult Annual | | | | | Wellness Visit | 9 | | | + + + + + | Microalbumin | | 04/01/2019, 01/07/2019 | | | Screening | 0 | | | + + + + + | Vaccine: Influenza | | | | | (Season Ended) | 0 | | | + + [...] | + +--------+------+ +--------+--------+--------+ | Implant Id: [id number] - | Cardia | | | | | [id number] | | Pacer-02/04/2019Implanted: | c | | | | | /[id number] | | Qty: 1 on 02/04/2019 by | Rhythm | | | | | 1 / | | Enoch Thompson MD | | | | | | | | | Manage | | | | | | | | ment | | | | | | + +--------+------+ +--------+--------+--------+ Procedures + +--------+ [...] + +--------+ + + + | DEVICE | Routin | 11/11/2019 | Cardiac pacemaker | Results for this | | INTERROGATION- | e | 8:00 AM | in situ | procedure are in the | | REMOTE | | PDT | | results section. | + +--------+ + + + | LABS - EXTERNAL SCAN | | 09/26/2019 | | Results for this | | | | 12:00 AM | | procedure are in the | | | | PST | | results section. | + +--------+ + + + | ECHO-EXTERNAL SCAN | | 09/23/2019 | | Results for this | | | | 12:00 AM | | procedure are in the | | | | PST | | results section. | + +--------+ + + + from Last 3 Months Results LABS - EXTERNAL SCAN (11/28/2019 12:00 AM PDT)Only the most recent of 2 results within the time period is included. + + + | Narrative | Performed At | + + + | Ordered by an | | | unspecified provider. | | + + + Device Interrogation - Remote (11/11/2019 8:00 AM PDT) + + + | Narrative | Performed At | + + + | [facility] | [facility] | | [place], Care Aide 11/12/2019 4:[facility] | | | INTERROGATION REPORT Name: Andres Guzmán PCP: Barbara Elkins | | | MD Mukul : 1930MRN: [id number] Primary cardiology | | | provider: Charlee Oswald Primary electrophysiology provider: Enoch | | | Jay Device credit verifier: [employer] Device type: Single | | | chamber (Ventricular) Battery Longevity: OK, 9 years. RV Pacin% | | | INTERROGATION RESULTS:Please see the full interrogation report | | | attached Known history of atrial flutter or atrial fibrillation: | | | YesCurrent antithrombotic therapy including: apixaban [Eliquis] Mode | | | switches: No atrial lead present. Ventricular high rate episodes: | | | None. Lead function: Lead impedance and threshold value trends have | | | been reviewed and are acceptable based on most recent evaluation CHF: | | | Congestive heart failure parameters and trends have been reviewed and | | | are stable Follow up: The next scheduled interrogation will be in 3 | | | months via remote transmission. Additional comments: None. | | | IMPRESSION:1. Normal pacemaker function.2. No atrial lead.3. No | | | ventricular high rate episodes were noted. Testing reviewed by: [facility] | | | [place], Device Clinic | | |Please see the full interrogation report attached | | | | | |Known history of atrial flutter or atrial fibrillation: Yes | | |Current antithrombotic therapy including: apixaban [Eliquis] | | | | | |Mode switches: No atrial lead present. | | | | | |Ventricular high rate episodes: None. | | | | | |Lead function: Lead impedance and threshold value trends have | | |been reviewed and are acceptable based on most recent evaluation | | | | | |CHF: Congestive heart failure parameters and trends have been | | |reviewed and are stable | | | | | |Follow up: The next scheduled interrogation will be in 3 months | | |via remote transmission. | | | | | |Additional comments: None. | | | | | |IMPRESSION: | | |1. Normal pacemaker function. | | |2. No atrial lead. | | |3. No ventricular high rate episodes were noted. | | | | | |Testing reviewed by: [facility]ez Bains, Device Clinic | | | | | + + + + +---------+ + + | Performing | Address | City/State/Zipcode | Phone Number | | Organization | | | | + +---------+ + + | [facility] | | | | + +---------+ + + ECHO-EXTERNAL SCAN (09/23/2019 12:00 AM PST) + + + | Narrative | Performed At | + + + | Ordered by an | | | unspecified provider. | | + + + from Last 3 Months [...] +--------+ +---------+--------+ | MEDICARE | MEDICA | [id number] | 04/21/19 | [phone] | | Medica | | | RE | | 97-Pre | 5 | | re | | | PART A | | sent | | | | | | AND B | | | | | | + +--------+ +--------+ +---------+--------+ | INDIVIDUAL ASSURANCE | INDIVI | [id number] | | | | Indemn | | [...] | Self | [birth year] | | [address] | | Robert | al/Fam | | 1930 | [phone] | [place] | | | quique | | | 1 (Home) | [address] | + +--------+ +--------+ + + Advance Directives + + + + + | Type | Date Recorded | Patient | Explanation | | | | Gang Punch Operator | | + + + + + | Power of | | | | | Dragline Operator Helper | | | | + + + + + | Advance | | | | | Directive | | | | + + + + +
--- OUTSIDE RECORDS SUMMARY | ~2019-12-21 | XMS | Encounter Summary ---
Demographics + + + | Address | [address] | | | [place] [address] | + + + | Home Phone | | + + + | Preferred Language | Unknown | + + + | Marital Status | | + + + | Evangelical Affiliation | 1001 | + + + | Race | Unknown | + + + | Ethnic Group | Unknown | + + + Author + + + | Author | [facility] | | | and [place] | + + + | Organization | [facility] | | | [...] [place] | | | | | [address] | | + + + + + | Deanna Lawson | ECON | Unknown | | + + + + + Care Team Providers + +------+ + | Care Cq Developer Name | Role | Phone | + +------+ + | Barbara Gilman MD | PCP | | + +------+ + Encounter Details +--------+ + + + + | Date | Type | Department | Care Team | Description | +--------+ + + + + | 09/08/ | Orders Only | [facility] | Todd Iqbal Ajith | | | 2016 | | CARDIOLOGY [place] | MD [address] | | | | | [address] | [address] | | | | | ERIC OLIV[address] | [place] [address] | | | | | [place], [place] | [phone] | | | | | [address] | | | | | | [phone] | | | +--------+ + + + [...] [place] | | | | | | [address] | | | | | | | [...] [place] | | | | | | [address] | | | | | | | [...] Performed At | + + + | [facility] CARDIOLOGY Nuclear Lexiscan Stress Test History: [...] + | Leonides Bullock Conversion - 04/11/2019 9:[address] [facility] CARDIOLOGY | | Nuclear Lexiscan [...]
--- OUTSIDE RECORDS SUMMARY | ~2019-12-21 | XMS | Encounter Summary ---
Demographics + + + | Address | [address] | | | [place] [address] | + + + | Home Phone | | + + + | Preferred Language | Unknown | + + + | Marital Status | | + + + | Synagogue Affiliation | 1001 | + + + | Race | Unknown | + + + | Ethnic Group | Unknown | + + + Author + + + | Author | [facility] | | | and [place] | + + + | Organization | [facility] | [...] [place] | | | | | [address] | | + + + + + | Deanna Lawson | ECON | Unknown | | + + + + + Care Team Providers + +------+ + | Care Cold Storage Supervisor Name | Role | Phone | + +------+ + | Barbara Gilman MD | PCP | | + +------+ + Encounter Details +--------+ + + + + | Date | Type | Department | Care Team | Description | +--------+ + + + + | 01/11/ | Orders Only | [facility] | Tristan Rajput, | | | 2018 | | NEPHROLOGY [place] | FOOD RUNNER [address] | | | | | [address] [facility] | [place] | | | | | [place] | [place] | | | | | [address] | [address] | | | | | [phone] | [phone] | | | | | | | [...] [place] | | | | | | [address] | | | | | | | | +--------+ + + + + | 02/09/ | Procedure | Cardiology | | | | 2019 | visit | | | | +--------+ + + + + | 03/09/ | Office | Nephrology | Isiah Jade MD | | | 2019 | Visit | | [address] [facility] [place] | | | | | | [address] [place] | | | | | | [address] | | | | | | | | +--------+ + + + + documented as of this encounter Visit Diagnoses Not on filedocumented in this encounter"
--- OUTSIDE RECORDS SUMMARY | ~2019-12-21 | XMS | Encounter Summary ---
Demographics + + + | Address | [address] | | | [place] [address] | + + + | Home Phone [...] [place] | | | | | [address] | | + + + + + | Deanna Lawson | ECON | Unknown | | + + + + + Care Team Providers + +------+ + | Care Enamel Applier Name | Role | Phone | + [...] + + | 11/27/ | Virtual | [facility] | Charlee Oswald | Cardiac pacemaker in | | 2020 | Office | CARDIOLOGY [facility] | [address] | situ (Primary Dx); | | | Visit | [address] | [address] | Permanent atrial | | | | [address] | [place] [address] | fibrillation (HCC); | | | | [place] | [phone] | Chronic diastolic | | | | [address] | | heart failure (HCC); | | | | [phone] | | Dilated aortic root | | [...] minutes of medical discussion via telephone visit ([id number]) Patient has not been seen in office [...] reported by him as being negative His UND9QG2- VASC score is 6( HTN, age, stroke, [...] and note reviewed , and no med icabeebe healthcare changes. His current and previous testing and [...] his apix[place] had been stopped by the [place] for increased anemia but had noted that [...] recreational or illicit drug use. Exercises with [employer] and yard work, tolerates without chest pain or dyspnea. 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 Thompson) : new byydde MRI com patible model L310, serial #[id number] pacemaker. The current lead is a [place] model 4136, serial #[id number].Mode for pacing, VVIR with dual-sensor technology programmed on. T he lower rate will be 60 and upper rate 120beats per minute. The output will be 2 volts at 0.4 milliseconds with sensitivity of 2.5 millivolts. Pacing and sensing will be bipolar Previous Implant Pacemaker/ICD: 07/30/2010, BS Altrua S601, SN: [id number]. [facility]. Last pacer interrogation: 11/11/2019: Battery longevity 9 years. Pacer dependent. RV paci n%. No atrial lead, unable to monitor burden of atrial fibrillation. No ventricular high rate episodes. Lead impedance and threshold values acceptable. CHF parameters and ethan nds reviewed and stable. pacer interrogation: 05/07/2019: ( Dr. Thompson) : Normal device function was seen today for th is [place] [employer] single-chamber device. The pacing threshold was [...] 15 mmHg. Normal pulmonic valve with mild IA. Sinus of Valsalva dilated about 4.26 cm, [...] change, except less pulmonar y hypertension Echo:07/26/2017: [facility]: EF >70 percent. LV normal [...] PHS 75,TOTAL BILI 0.6,ALB 3.9 Labs: 02/18/2018: ([facility] CBC: WBC 6.2, RBC 3.46, hemoglobin [...] 73. Thyroid: TSH 3.55 Labs: 08/23/2018: ( [facility]): CBC: WBC 6.6, RBC 2.92, hemoglobin [...] atrial fi b with a very high JNH6BI7- VASC score of 6. For his cardiac [...] with Dr. Dina Sanchez 01/22/2020 for primary aeronautical engineering officer, as well as seeing me. I also referred him for sleep apnea evaluation with Dr. Dorsey at the [facility] sleep disorders clinic due to his [...] for continuity of care purp nettie [facility] 11/28/2019 Ubaldo gregory in this encounter [...] [place] | | | | | | [address] | | | | | | | | +--------+ + + + + | 02/09/ | Procedure | Cardiology | | | | 2019 | visit | | | | +--------+ + + + + | 03/09/ | Office | Nephrology | Isiah Jade MD | | | 2019 | Visit | | [address] [facility] | | | | | | [address] [place] | | | | | | [address] | | | | | | | [...]
--- OUTSIDE RECORDS SUMMARY | ~2019-12-21 | XMS | Encounter Summary ---
Demographics + + + | Address | [address] | | | [place] [address] | + + + | Home Phone [...] [place] | | | | | [address] | | + + + + + | Deanna Lawson | ECON | Unknown | | + + + + + Care Team Providers + +------+ + | Care Commissioned Defence Force Officer Name | Role | Phone | + +------+ + | Barbara Gilman MD | PCP | | + +------+ + Reason for Visit + + + | Reason | Comments | + + + | Device Check | isabella ppm remote - routine | | (Remote) | | + + + Encounter Details +--------+ + + + + | Date | Type | Department | Care Team | Description | +--------+ + + + + | 08/12/ | Procedure | [facility] | | Cardiac pacemaker in | | 2019 | visit | CARDIOLOGY [place] | | situ (Primary Dx) | | | | [address] | | | | | | [place] | | | | | | [address] | | | | | | [phone] | | | +--------+ + + + [...] | | | | | | [place], [place] | | | | | | [address] | | | | | | | [...] | | | | | | [address] [place], [place] | | | | | | [address] | | | | | | | | +--------+ + + + + documented as of this encounter Procedures + +--------+ + + + | Procedure Name | Priori | Date/Time | Associated Diagnosis | Comments | | | ty | | | | + +--------+ + + + | DEVICE | Routin | 08/12/2019 | Cardiac pacemaker | Results for this | | INTERROGATION- | e | 8:00 AM | in situ | procedure are in the | | REMOTE | | PST | | results section. | + +--------+ + + + documented in this encounter Results Device Interrogation - Remote (08/12/2019 8:00 AM PST) + + + | Narrative | Performed At | + + + | [facility] | [facility] | | [place] Slubber Runner 08/12/2019 4:09 [facility] | | | INTERROGATION REPORT Name: Andres Guzmán PCP: Barbara Elkins | | | MD Mukul : 1930MRN: [id number] Primary cardiology | | | provider: Charlee Oswald Primary electrophysiology provider: Enoch | | | Jay Device clinical interviewer: [employer] Device type: Single | | | chamber (Ventricular) Battery Longevity: [place], 9.5 years. RV Pacing: | | | 100% INTERROGATION RESULTS:Please see the full interrogation report [...] in situ - Primary | + + documented in this encounter"
--- OUTSIDE RECORDS SUMMARY | ~2019-12-21 | XMS | Encounter Summary ---
Demographics + + + | Address | [address] | | | [place] [address] | + + + | Home Phone [...] [place] | | | | | [address] | | + + + + + | Deanna Lawson | ECON | Unknown | | + + + + + Care Team Providers + +------+ + | Care Family Preservation Worker Name | Role | Phone | + +------+ + | Barbara Gilman MD | PCP | | + +------+ + Encounter Details +--------+ + + + + | Date | Type | Department | Care Team | Description | +--------+ + + + + | 08/08/ | Orders Only | [facility] | Charlee Oswald | | | 2017 | | CARDIOLOGY [place] | [address] | | | | | [address] | [address] | | | | | [address] | [place] [address] | | | | | [place] | [phone] | | | | | [address] | | | | | | [phone] | | | +--------+ + + + [...] [place] | | | | | | [address] | | | | | | | [...] [place] | | | | | | [address] | | | | | | | | +--------+ + + + + documented as of this encounter Visit Diagnoses Not on filedocumented in this encounter"
--- OUTSIDE RECORDS SUMMARY | ~2019-12-21 | XMS | Encounter Summary ---
Demographics + + + | Address | [address] | | | [place] [address] | + + + | Home Phone | | + + + | Preferred Language | Unknown | + + + | Marital Status | | + + + | Alevism Affiliation | 1001 | + + + [...] [place] | | | | | [address] | | + + + + + | Deanna Lawson | ECON | Unknown | | + + + + + Care Team Providers + +------+ + | Care Payroll Administrative Assistant Name | Role | Phone | + +------+ + | Barbara Gilman MD | PCP | | + +------+ + Reason for Visit + + + | Reason | Comments | + + + | Device Check | [place] pacemaker in office device check w/Jay | | (In-office) | | + + + Encounter Details +--------+ + + + + | Date | Type | Department | Care Team | Description | +--------+ + + + + | 05/07/ | Procedure | [facility] | Enoch Thompson, | Cardiac pacemaker in | | 2019 | visit | CARDIOLOGY [place] | MD [address] | situ (Primary Dx); | | | | [address] | [place] | Permanent atrial | | | | [place] | [address] | fibrillation (HCC); | | | | [address] | | Chronic diastolic | | | | [phone] | | heart failure (HCC) | +--------+ [...] | | | | | [address] [place] | | | | | | [address] | | | | | | | [...] [place] | | | | | | [address] | | | | | | | [...] | | scheduled encounter for additional details. engineering leader: Thi Burch RN | | | | | |See device data attached to scheduled encounter for additional | | |details. | | | | | |engineering leader: Thi Burch RN | | | | [...]
--- OUTSIDE RECORDS SUMMARY | ~2019-12-21 | XMS | Encounter Summary ---
Demographics + + + | Address | [address] | | | [place] [address] | + + + | Home Phone | | + + + | Preferred Language | Unknown | + + + | Marital Status | | + + + | Christianity Affiliation | 1001 | + + + | Race | Unknown | + + + | Ethnic Group | Unknown | + + + Author + + + | Author | [facility] | | | and [place] | + + + | Organization | [facility] | | | [...] [place] | | | | | [address] | | + + + + + | Deanna Lawson | ECON | Unknown | | + + + + + Care Team Providers + +------+ + | Care Strip Winder Name | Role | Phone | + [...] [address] | | | | | [place], [place] | [place] [address] | | | | | [address] | [phone] | | | | | [phone] | | | +--------+ + + + [...] [place] | | | | | | [address] | | | | | | | | +--------+ + + + + | 02/09/ | Procedure | Cardiology | | | | 2019 | visit | | | | +--------+ + + + + | 03/09/ | Office | Nephrology | Isiah Jade MD | | | 2019 | Visit | | [address] [facility] | | | | | | [address] [place] | | | | | | [address] | | | | | | | [...] | + + + | Patient Name: Ramirez Andres Date of : 1930 | | | [...] TR Vmax: 3.45 m/s | | | Manager Medical: DAR Authenticated by: Vikki Godoy Report | | | Date/Time: -- [id number]:23:50 | | + + + + ------+ | Procedure Note | + ------+ | Leonides Bullock Conversion - 04/11/2019 6:07 PM PDT Patient Name: Francisco Guzmán of | | : 1930 Performing Physician: Jayne | | [place] INDICATIONS------- | | ----A-Fib [...] cmLVPWd: 0.86 cmLVOT Area: | | 3.66 oj0OMIA Diam: 2.15 cm%FS: 30.74 %EF(Teich): 57.74 %ESV(Teich): [...] mlLAESV Index (A-L): 55.88 ml/m2LAAs A2C: 25.46 [id number] A-L | | A2C: 88.15 mlLALs A2C: 6.24 cmLAAs A4C: 29.53 ci4XDIFV A-L A4C: 110.72 mlLALs | | A4C: 6.68 cmRAAs: 31.00 em0GCNYA A-L: 119.55 mlRAESV MOD: 117.88 mlRALs: 6.82 | | cmTAPSE: 1.87 cmAV maxP.43 mmHgAV meanP.22 mmHgAV Vmax: 1.05 m/Armen | | Vmean: 0.69 m/Armen VTI: 18.19 cmAVA Vmax: 2.31 cm2AVA (VTI): 2.75 dv9TTAL Vmax: | | 0.00 cm2/m2AVAI (VTI): 0.00 cm2/m2LVOT maxP.76 mmHgLVOT meanP.05 mmHgLVSI | | Dopp: 27.38 ml/m2LVSV Dopp: 50.12 mlLVOT Vmax: 0.66 m/sLVOT Vmean: 0.48 m/sLVOT | | VTI: 13.68 cmMV A Good: 0.02 m/sMV DecT: 135.32 msMV E Good: 0.84 m/sMV E/A | | Ratio: 38.78MV PHT: 39.24 msMVA By PHT: 5.60 uk8Nvaxiv e': 0.03 m/sSeptal E/e': | | 21.63Lateral e': 0.08 m/sLateral E/e': 10.19RAP: 15 mmHgRVSP: 62.86 mmHgTR | | maxP.86 mmHgTR Vmax: 3.45 m/s Manager Medical: DENISSEuthenticated by: Jayne | | [facility]Report Date/Time: -- [id number]:23:50 IMPRESSION: 1. The left ventricle is | [...] |TR Vmax: 3.45 m/s | | | |Manager Medical: | |Authenticated by: Vikki Godoy | |Report Date/Time: -- 47_[id number]:23:50 | | | |IMPRESSION: | |1. The [...]
--- OUTSIDE RECORDS SUMMARY | ~2019-12-21 | XMS | Encounter Summary ---
Demographics + + + | Address | [address] | | | [place] [address] | + + + | Home Phone [...] [place] | | | | | [address] | | + + + + + | Deanna Lawson | ECON | Unknown | | + + + + + Care Team Providers + +------+ + | Care Manager Scheduling Name | Role | Phone | + [...] Provider Unknown | | | | | [place], [place] | | | | | | [address] | (Fax) | | | | | [phone] | | | +--------+ + + + [...] [place] | | | | | | [address] | | | | | | | | +--------+ + + + + | 02/09/ | Procedure | Cardiology | | | | 2019 | visit | | | | +--------+ + + + + | 03/09/ | Office | Nephrology | Isiah Jade MD | | | 2019 | Visit | | [address] [facility] | | | | | | [address] [place] | | | | | | [address] | | | | | | | | +--------+ + + + + documented as of this encounter Visit Diagnoses Not on filedocumented in this encounter"
--- OUTSIDE RECORDS SUMMARY | ~2019-12-21 | XMS | Encounter Summary ---
Demographics + + + | Address | [address] | | | [place] [address] | + + + | Home Phone | | + + + | Preferred Language | Unknown | + + + | Marital Status | | + + + | Synagogue Affiliation | 1001 | + + + | Race | Unknown | + + + | Ethnic Group | Unknown | + + + Author + + + | Author | [facility] | | | and [place] | + + + | Organization | [facility] | | | [...] [place] | | | | | [address] | | + + + + + | Deanna Lawson | ECON | Unknown | | + + + + + Care Team Providers + +------+ + | Care Resource Engineer Name | Role | Phone | + +------+ + PCP | Unavailable | + +------+ + Encounter Details +--------+ + + + + | Date | Type | Department | Care Team | Description | +--------+ + + + + | 08/29/ | Orders Only | [facility] | Conversion | | | 2018 | | CARDIOLOGY OPHELIA | Transaction, | | | | | [address] | Provider Unknown | | | | | [place], [place] | [phone] | | | | | [address] | | | | | | [phone] | | | +--------+ + + + [...] [place] | | | | | | [address] | | | | | | | | +--------+ + + + + | 02/09/ | Procedure | Cardiology | | | | 2019 | visit | | | | +--------+ + + + + | 03/09/ | Office | Nephrology | Isiah Jade MD | | | 2019 | Visit | | [address] [facility] | | | | | | [address] [place] [address] | | | | | | [address] | | | | | | | [...]
--- OUTSIDE RECORDS SUMMARY | ~2019-12-21 | XMS | Encounter Summary ---
Demographics + + + | Address | [address] | | | [place] [address] | + + + | Home Phone [...] [place] | | | | | [address] | | + + + + + | Deanna Lawson | ECON | Unknown | | + + + + + Care Team Providers + +------+ + | Care Boat Camp Operator Name | Role | Phone | + +------+ + | Barbara Gilman MD | PCP | | + +------+ + Encounter Details +--------+ + + + + | Date | Type | Department | Care Team | Description | +--------+ + + + + | 08/08/ | Orders Only | [facility] | Charlee Oswald | | | 2017 | | CARDIOLOGY ALYX | [address] | | | | | [address] | [address] | | | | | [address] | [place] [address] | | | | | [place] | [phone] | | | | | [address] | | | | | | [phone] | | | +--------+ + + + [...] [place] | | | | | | [address] | | | | | | | [...] [place] | | | | | | [address] | | | | | | | | +--------+ + + + + documented as of this encounter Visit Diagnoses Not on filedocumented in this encounter"
--- OUTSIDE RECORDS SUMMARY | ~2019-12-21 | XMS | Encounter Summary ---
Demographics + + + | Address | [address] | | | [place] [address] | + + + | Home Phone | | + + + | Preferred Language | Unknown | + + + | Marital Status | | + + + | Shinto Affiliation | 1001 | + + + | Race | Unknown | + + + | Ethnic Group | Unknown | + + + Author + + + | Author | [facility] | | | and [place] | + + + | Organization | [facility] | | | and [place] | + + + | Address | Unknown | + + + | Phone | Unavailable | + + + Support + + + + + | Name | Relationship | Address | Phone | + + + + + | Marissa Guzmná | ECON | [address] | | | | | [place] | | | | | [address] | | + + + + + | Deanna Lawson | ECON | Unknown | | + + + + + Care Team Providers + +------+ + | Care Tip Printer Name | Role | Phone | + [...] + + | 11/27/ | Virtual | [facility] | Charlee Oswald | Cardiac pacemaker in | | 2020 | Office | CARDIOLOGY ALYX | [address] | situ (Primary Dx); | | | Visit | [address] | [address] | Permanent atrial | | | | [address] | [place] [address] | fibrillation (HCC); | | | | [place] | [phone] | Chronic diastolic | | | | [address] | | heart failure (HCC); | | | | [phone] | | Dilated aortic root | | [...] minutes of medical discussion via telephone visit ([id number]) Patient has not been seen in office [...] reported by him as being negative His ZCE3TF3- VASC score is 6( HTN, age, stroke, [...] his apixaban had been stopped by the [place] for increased anemia but had noted that [...] recreational or illicit drug use. Exercises with [employer] and yard work, tolerates without chest pain or dyspnea. 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 Thompson) : new [employer] MRI com patible model L310, serial #[id number] pacemaker. The current lead is a [employer] model 4136, serial #[id number].Mode for pacing, VVIR with dual-sensor technology programmed on. T he lower rate will be 60 and upper rate 120beats per minute. The output will be 2 volts at 0.4 milliseconds with sensitivity of 2.5 millivolts. Pacing and sensing will be bipolar Previous Implant Pacemaker/ICD: 07/30/2010, BS [employer]a S601, SN: [id number]. [facility]. Last pacer interrogation: 11/11/2019: Battery longevity 9 years. Pacer dependent. RV paci n%. No atrial lead, unable to monitor burden of atrial fibrillation. No ventricular high rate episodes. Lead impedance and threshold values acceptable. CHF parameters and ethan nds reviewed and stable. pacer interrogation: 05/07/2019: ( Dr. Thompson) : Normal device function was seen today for th is [employer] single-chamber device. The pacing threshold was [...] 15 mmHg. Normal pulmonic valve with mild AK. Sinus of Valsalva dilated about 4.26 cm, [...] change, except less pulmonar y hypertension Echo:07/26/2017: [facility]: EF >70 percent. LV normal in [...] PHS 75,TOTAL BILI 0.6,ALB 3.9 Labs: 02/18/2018: ([facility] ER). CBC: WBC 6.2, RBC 3.46, [...] Thyroid: TSH 3.55 Labs: 08/23/2018: ( [facility] ER): CBC: WBC 6.6, RBC [...] atrial fi b with a very high XYB2BD5- VASC score of 6. For his cardiac [...] with Dr. Dina Sanchez 01/22/2020 for primary bandage winding machine operator, as well as seeing me. I also referred him for sleep apnea evaluation with Dr. Dorsey at the [facility] sleep disorders clinic due to his [...] for continuity of care purp nettie MCCONNELL [facility] Cardiology 11/28/2019 Ubaldo gregory in this encounter [...] [place] | | | | | | [address] | | | | | | | | +--------+ + + + + | 02/09/ | Procedure | Cardiology | | | | 2019 | visit | | | | +--------+ + + + + | 03/09/ | Office | Nephrology | Isiah Jade MD | | | 2019 | Visit | | [address] [facility] | | | | | | [address] | | | | | | [address] | | | | | | | [...]
--- OUTSIDE RECORDS SUMMARY | ~2019-12-21 | XMS | Encounter Summary ---
Demographics + + + | Address | [address] | | | [place] [address] | + + + | Home Phone [...] [place] | | | | | [address] | | + + + + + | Deanna Lawson | ECON | Unknown | | + + + + + Care Team Providers + +------+ + | Care Animal Chiropractor Name | Role | Phone | + [...] Provider Unknown | | | | | [place], [place] | | | | | | [address] | (Fax) | | | | | [phone] | | | +--------+ + + + [...] [place] | | | | | | [address] | | | | | | | | +--------+ + + + + | 02/09/ | Procedure | Cardiology | | | | 2019 | visit | | | | +--------+ + + + + | 03/09/ | Office | Nephrology | Isiah Jade MD | | | 2019 | Visit | | [address] [facility] | | | | | | [address] | | | | | | [address] | | | | | | | | +--------+ + + + + documented as of this encounter Visit Diagnoses Not on filedocumented in this encounter"
--- OUTSIDE RECORDS SUMMARY | ~2019-12-21 | XMS | Encounter Summary ---
Demographics + + + | Address | [address] | | | [place] [address] | + + + | Home Phone [...] [place] | | | | | [address] | | + + + + + | Deanna Lawson | ECON | Unknown | | + + + + + Care Team Providers + +------+ + | Care Able Bodied Tankerman Name | Role | Phone | + [...] | | Required | | atrial | [address] | 19 | | | | | fibrillation | [place] | ANUBELMONDLucius | | | | | (HCC) | [address] | [address] | | | | | Moderate to | [place], [place] | [address] | | | | | severe | [address] | [place] | | | | | pulmonary | Phone: | [phone] Phone: | | | | | hypertension | [phone] | [phone] | | | | | (HCC) Risk | Fax: | Fax: | | | | | factors for | [phone] | [phone] | | | | | obstructive | [...] + | 10/27/ | Office | [facility] | Charlee Oswald | Permanent atrial | | 2020 | Visit | CARDIOLOGY ALYX | [address] | fibrillation (HCC) | | | | [address] | [address] | (Primary Dx); | | | | [address] | [place] [address] | Cardiac pacemaker in | | | | [place] | [phone] | situ; Chronic | | | | [address]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 | | | | [phone] | | failure (HCC); | | | [...] Non fasting labs to be done at [facility] in 2 weeks Your Echo looks worse [...] have referred you to Dr. Dor[place] [facility] , call [phone] for an appoi ntment next week I will have you establish care with Dr. Sanchez who will be your meteorological equipment repairer See me back in 4 weeks documented [...] cirrhosis which is also followed by the [place], though liver enzymes normal . He was previously diagnosed with sleep apnea by the [place], but updated sleep study performed by the [place] in 2018 was reported by him as being negative His WWV2NI8- VASC score is 6( HTN, age, stroke, [...] records initially, but updated study performed i n 2018 showed no sleep apnea Cardiovascular: Denies chest [...] recreational or illicit drug use. Exercises with [employer] and yard work, tolerates without chest pain or dyspnea. 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 Also worked for a [employer] company and then a [employer], but now just enjoys his leisure ti [...] or rhonchi noted, respirations unlab ored HEART: [facility] pacemaker site well Healed, stable to [...] : 02/04/2019: ( Dr. Thompson) : new [employer] Accolade MRI com patible model L310, serial #[id number] pacemaker. The current lead is a [employer] model 4136, serial #[id number].Mode for pacing, VVIR with dual-sensor technology programmed on. T he lower rate will be 60 and upper rate 120beats per minute. The output will be 2 volts at 0.4 milliseconds with sensitivity of 2.5 millivolts. Pacing and sensing will be bipolar Previous Implant Pacemaker/ICD: 07/30/2010, BS Altlevigenia S601, SN: [id number]. [facility]. Addendum: Last [...] function was seen today for th is [employer] single-chamber device. The pacing threshold was [...] 15 mmHg. Normal pulmonic valve with mild [place]. Sinus of Valsalva dilated about 4.26 cm, [...] change, except less pulmonar y hypertension Echo:07/26/2017: [facility]: EF >70 percent. LV normal in size [...] PHS 75,TOTAL BILI 0.6,ALB 3.9 Labs: 02/18/2018: ([facility]). CBC: WBC 6.2, RBC 3.46, hemoglobin 11.2, [...] 73. Thyroid: TSH 3.55 Labs: 08/23/2018: ( [facility]): CBC: WBC [...] stopped, as he has a very high XYY2NO6- VASC sco re of 6. For his [...] with Dr. Dorsey at the [facility] sleep disorders clinic due to his [...] contain inadvertent rec ognition errors. Maximilian MCCONNELL [facility] Cardiology 10/28/2019 Ubaldo gregory in this encounter Plan of [...] [place] | | | | | | [address] | | | | | | | | +--------+ + + + + | 02/09/ | Procedure | Cardiology | | | | 2019 | visit | | | | +--------+ + + + + | 03/09/ | Office | Nephrology | Isiah Jade MD | | | 2019 | Visit | | [address] [facility] | | | | | | [address] | | | | | | [address] | | | | | | | [...]
--- OUTSIDE RECORDS SUMMARY | ~2019-12-21 | XMS | Encounter Summary ---
Demographics + + + | Address | [address] | | | [place] [address] | + + + | Home Phone [...] [place] | | | | | [address] | | + + + + + | Deanna Lawson | ECON | Unknown | | + + + + + Care Team Providers + +------+ + | Care Engineering Aide Name | Role | Phone | + +------+ + | Barbara Gilman MD | PCP | | + +------+ + Encounter Details +--------+ + + + + | Date | Type | Department | Care Team | Description | +--------+ + + + + | 01/11/ | Orders Only | [facility] | Tristan Rajput, | | | 2018 | | NEPHROLOGY [place] | [address]OLDER [address] | | | | | [address] [facility] | [place] [address] | | | | | [address] [place] | [place] | | | | | [address] | [address] | | | | | [phone] | [phone] | | | | | | | [...] [place] | | | | | | [address] | | | | | | | | +--------+ + + + + | 02/09/ | Procedure | Cardiology | | | | 2019 | visit | | | | +--------+ + + + + | 03/09/ | Office | Nephrology | Isiah Jade MD | | | 2019 | Visit | | [address] [facility] [facility] | | | | | | [address] | | | | | | [address] | | | | | | | | +--------+ + + + + documented as of this encounter Visit Diagnoses Not on filedocumented in this encounter"
--- OUTSIDE RECORDS SUMMARY | ~2019-12-21 | XMS | Encounter Summary ---
Demographics + + + | Address | [address] | | | [place] [address] | + + + | Home Phone | | + + + | Preferred Language | Unknown | + + + | Marital Status | | + + + | Shinto Affiliation | 1001 | + + + | Race | Unknown | + + + | Ethnic Group | Unknown | + + + Author + + + | Author | [facility] | | | and [place] | + + + | Organization | [facility] | | [...] [place] | | | | | [address] | | + + + + + | Deanna Lawson | ECON | Unknown | | + + + + + Care Team Providers + +------+ + | Care Tool And Fixture Repairer Name | Role | Phone | + +------+ + PCP | Unavailable | + +------+ + Encounter Details +--------+ + + + + | Date | Type | Department | Care Team | Description | +--------+ + + + + | 07/25/ | Hospital | LOCATED WITHIN [facility] | Yoli Harding MD | Dyspnea, unspecified | | 2017 - | Encounter | [facility] | [address] | type; Fatigue, | | | | CARE FLOOR [address] | [place] [address] | unspecified type; | | 07/29/ | | [address] | [phone] | Altered mental | | 2016 | | [place], [place] | | status, unspecified | | | | [address] | | altered mental | | | | [phone] | | status type; | | | [...] Date of Service: 07/29/17 1003 Status: Signed Poultry Process Worker: Gutierrez Lopez MD (Physician) [facility] Service: Hospitalist Discharge Summary Date of Admission: [...] with congestive heart failure clinic, arranged by lead case manager and outpatient sharon metzger. Past Medical History [...] Take 500 mg by mouth daily. 07/24/2017@0700 Jfldnpn-Gxzhtxzss-Xcltmqx D 600-40-500 MG-MG-UNIT TB24 Take 1,200 mg [...] 2 (two) times daily. 7@0700 Multiple Vitamins-Minerals ( MAC[facility] PO) Take 1 tablet by mouth daily. 2016@00 Chidester 3 1000 MG CAPS Take 1 capsule [...] As indicated below and as discussed by lead case manager's at Bedside. Disposition: Home Condition: Stable Code Status: Full Code Discharge Instructions Diet Cardiac Diet Low Sodium Activity as Tolerated Follow up: ENEDINA Dickerson [address] [facility] [address] Go on 07/31/2017 Hospital Follow Up Guided Patient Services Guided Patient Services GPS Ehs Engineer- JIAN [place] [phone] Mon-Mon 7:30 AM 4:00 PM Call for any questions or concerns after your discharge home, or for help making follow up appointments. Charlee Chauhan ENEDINA Oswald [address] [place] [address] On 08/08/2017 Post-Hopsital discharge Follow-up. Medication List [...] Refills: 0 Commonly known as: VITAMIN C Grlyner-Issbfpglf-Gbrsqpz D 600-40-500 MG-MG-UNIT Tb24 Refills: 0 glipiZIDE [...] (three) times | | | 14 | | | tablet | daily. | | [...] (none) Author Type: Registered Nurse Filed: 07/29/17 1645 Date of Service: 07/29/175 Status: Signed Poultry Process Worker: Valeria Martinez RN (Registered Nurse) Patient discharged home via private vehicle with family. Heart failure education completed, all discharge instructions discussed. Patient has heart failure education packet and paper prescriptions in possession. All questions answered, all patient belongings with family. Pat ient wheeled out with TAR PROCESSING TECHNICIAN, all vital signs stable upon discharge. VALERIA MARTINEZ RN onver jose a Transaction, Provider Unknown - 07/28/2017 3:18 PM PST Progress Notes by Carina Quintero CMA at 07/28/17 1378 Author: Carina Quintero CMA Service: (none) Author Type: Rn Perioperative Filed: 07/28/17 1519 Date of Service: 07/28/171517 Status: Signed Poultry Process Worker: Carina Quintero CMA (Rn Perioperative) GPS- Patient enrolled. Scheduled to see Charlee Chauhan on 08/08 and PCP on 07/31 onver jose a Transaction, Provider Unknown - 07/28/2017 2:43 PM PST Case Management by Yousuf Mcfadden RN at 07/28/17 7395 Author: Yousuf Mcfadden RN Service: (none) Author Type: Registered Nurse Filed: 07/28/17 8610 Date of Service: 07/28/17 652 Status: Signed Poultry Process Worker: Yousuf W Hair, RN (Registered Nurse) I met with patient in rounds, he is enrolled in the CHF program through [facility] a nd has follow up schedule with his cardiologists. utierrez Peter MD - 07/28/2017 6:56 AM PST Progress Notes by Gutierrez Lopez MD at 07/28/17 0656 Author: Gutierrez Lopez MD Service: Hospitalist Author Type: Physician Filed: 07/28/17 1342 Date of Service: 07/28/1756 Status: Signed Poultry Process Worker: Gutierrez Lopez MD (Physician) [facility] Service: Hospitalist Progress Note Hospital Day: LOS: [...] 07/28/17617 Date of Service: 07/28/17612 Status: Signed Poultry Process Worker: Stacey Ley RN (Registered Nurse) Patient again [...] monitor. 07/28/17 6:18 AM Stacey Ley RN Gutierrez Momin MD - 07/27/2017 10:15 AM PST Progress Notes by Gutierrez Lopez MD at 07/27/17 1015 Author: Gutierrez Lopez MD Service: Hospitalist Author Type: Physician Filed: 07/27/17 1547 Date of Service: 07/27/17 1015 Status: Signed Poultry Process Worker: Gutierrez Lopez MD (Physician) [facility] Service: Hospitalist Progress Note Hospital Day: LOS: [...] Management by Yousuf Mcfadden RN at 07/26/17 1432 Author: Yousuf Mcfadden RN Service: (none) Author Type: Registered Nurse Filed: 07/26/17 1430 Date of Service: 07/26/17 143 Status: Signed Poultry Process Worker: Yousuf Mcfadden RN (Registered Nurse) 07/26/17 1432 Discharge Planning Evaluation Admitting Diagnosis CHF Readmission No Living Arrangements Spouse/significant other Support Systems Spouse/significant other;Children Type of Residence Private residence Independent with ADL's Yes Independent with Mobility Yes Mental Status Oriented Resources Financial concerns No Transportation issues No Patient/Family concerns No Prescription Plan Yes Name of Pharmacy [place] Previous home health equipment No Vascular access device No Anticipated Disposition Facility Type Home Met with Desiree and discussed discharge planning, Pt is a 87 y.o., male who is independent an d lives with his in [place]. He goes to the [facility] for his coumadin checks an d doesn't use any DME. Desiree denies having needs for discharge. Patient's PCP is:Janie Beltrán Patient's insurance:Medicare and Bib + Tuck Coverage concerns: none Medication coverage/concerns: yes/no Community resources utilized / needed: none Assistance in transportation: family Identification of any specific education / training: none Barriers to Discharge / Alternative housing needed:none Anticipated DCP: Yousuf Gagnon Nathen Pereira i, MD - 07/26/2017 8:09 AM PSTFormatting of this note might be different from the o riginal. Progress Notes by Nathen Coughlin MD at 07/26/17808 Author: Nathen Coughlin MD Service: Hospitalist Author Type: Physician Filed: 07/26/17 1341 Date of Service: 07/26/17808 Status: Signed Poultry Process Worker: Nathen Coughlin MD (Physician) [facility] Service: Hospitalist Progress Note Pt: Desiree Mcconnell AGE/SEX: 87 y.o. male ROOM: [facility]710-1 : 1930 PCP: JANIE FITZGERALD ADMIT DATE: [...] and managing patient and counseling/coordination. Dictation software, Lollipuff, used which may contain error for similar [...] 07/25/171950 Date of Service: 07/25/171946 Status: Signed Poultry Process Worker: Demond Sandy () Visit per pt req. Pt sitting up in bed, pt (Marissa) sitting next to bed. Pt welcomed vi sit. Chp provided caring listening. Pt did some life review - talked proudly about his & wif e's 63 years of marriage & 3 children. Pt also explained he & are 7th Day [employer], an d quite involved there. Day RN [...] 07/25/171448 Date of Service: 07/25/171448 Status: Signed Poultry Process Worker: Renuka Reno RPH (Pharmacist) Renal Dosing Monitoring: [...] [place] | | | | | | [address] | | | | | | | [...] [place] | | | | | | [address] | | | | | | | [...] | | | Fingerstick | performed at [facility];[address] | | LAB | | | | [address];[place], [place] | | | | | | [address] | | | | + + + [...] | | | Fingerstick | performed at [facility];[address] | | LAB | | | [address];[place], [place] | | | | | | [address] | | | | + + + [...] | | | Fingerstick | performed at [facility];[address] | | LAB | | | | [address];[place] | | | | | | [address] | | | | + + + + + + + + | Specimen | + + | | + + + +---------+ + + | Performing | Address | City/State/Zipcode | Phone Number | | Organization | | | | + +---------+ + + | EXTERNAL LAB | | | | + +---------+ + + Protime INR (07/29/2017 5:10 AM PST) + + + [...] | | | | | performed at [facility] | | | | | | [facility];[place], [place] | | | | | | [address] | | | | + + + [...] | | | Basophils | performed at [facility], [address] | K/uL | LAB | | | | [address], | | | | | | [place] [address] | | | | + + + [...] | | | | | [place] [address] | | | | + + + [...] | | | | | | at [facility], [address] | | | | | | [address], | | | | | | [place] [address] | | | | + + + [...] | | | Fingerstick | performed at [facility];[address] | | LAB | | | | [address];[place] | | | | | | [address] | | | | + + + [...] | | | Fingerstick | performed at [facility];[address] | | LAB | | | | [address];[place], [place] | | | | | | [address] | | | | + + + [...] | | | Fingerstick | performed at [facility];[address] | | LAB | | | | [address];[place] | | | | | | [address] | | | | + + + [...] RECEIVEDAbnormal | | | Testing performed at [facility];[address] [place] [address];[place] [address] | | + + + + +---------+ [...] | | | Fingerstick | performed at [facility];[address] | | LAB | | | | [address];[place] | | | | | | [address] | | | | + + + [...] | | | | | performed at [facility];[address] | | | | | | [facility];[place], [place] | | | | | | [address] | | | | + + + [...] | | | Basophils | performed at [facility], [address] | K/uL | LAB | | | | [address], | | | | | | [place] [address] | | | | + + + [...] [address], | | | | | | [place] [address] | | | | + + + [...] | | | Fingerstick | performed at [facility];[address] | | LAB | | | | [address];[place] | | | | | | [address] | | | | + + + [...] | | | Fingerstick | performed at [facility];[address] | | LAB | | | | [address];[place] | | | | | | [address] | | | | + + + [...] | performed at [facility], [address] | | | | | | [address], | | | | | | [place] [address] | | | | + + + [...] LAB | | | | performed at [facility], [address] | | | | | | [address], | | | | | | [place] [address] | | | | + + + [...] | | | Fingerstick | performed at [facility];[address] | | LAB | | | | [address];[place] | | | | | | [address] | | | | + + + [...] | | | Fingerstick | performed at [facility];[address] | | LAB | | | | [address];[place], [place] | | | | | | [address] | | | | + + + [...] | | | | | [place] [address] | | | | + + + [...] | | | | | performed at [facility];[address] | | | | | | [facility];[place], [place] | | | | | | [address] | | | | + + + [...] | | | Reticulocyt | performed at [facility], [address] | | LAB | | | e Count | [address], | | | | | | [place] [address] | | | | + + + [...] | | | Basophils | performed at [facility], [address] | K/uL | LAB | | | | [address], | | | | | | [place] [address] | | | | + + + [...] | | | External | performed at [facility], [address] | | LAB | | | | [address], | | | | | | [place] [address] | | | | + + + [...] | | | | | | at [facility], [address] | | | | | | [address], | | | | | | [place] [address] | | | | + + + [...] | | | Fingerstick | performed at [facility];[address] | | LAB | | | | [address];[place], [place] | | | | | | [address] | | | | + + + [...] | | | Fingerstick | performed at [facility];[address] | | LAB | | | | [address];[place] | | | | | | [address] | | | | + + + [...] | | | Fingerstick | performed at [facility];[address] | | LAB | | | | [address];[place], [place] | | | | | | [address] | | | | + + + [...] aortic stenosis. | | | Mitral Valve: Ojvn-ts-ywsgdlhg mitral regurgitation is present. | | | [...] 1.88 cm AR Dec | | | [place]: 2.33 m/s2 AR Dec Time: 1398.10 ms [...] TV A Good: 0.32 m/s TV Dec [place]: 2.31 m/s2 | | | TV Dec Time: 215.03 ms TV E Good: 0.49 m/s TV E/A Ratio: | | | 1.53 Notched Blade Loader: DOMITILA Authenticated by: JENNIFER SWAIN MD | | | Report Date/Time: -- [id number]:39:27 | | + + + + + [...] evidence of aortic stenosis.Mitral Valve: | | Alun-qq-unncooab mitral regurgitation is present.Mitral Valve: Mild mitral [...] BPMR-R: 973.47 msLAESV(A-L): 99.35 mlLAAs A2C: 27.25 [id number] A-L A2C: 99.85 | | mlLAESV MOD A2C: 93.96 mlLALs A2C: 6.31 cmLAAs A4C: 26.56 [id number] A-L A4C: | | 96.85 mlLAESV MOD A4C: 88.08 mlLALs A4C: 6.18 cmTAPSE: 1.88 cmAR Dec [place]: 2.33 | | m/s2AR Dec Time: 1398.10 msAR maxP.73 mmHgAR PHT: 405.45 msAR Vmax: 3.26 | | m/sHR: 64.46 BPMAV maxP.44 mmHgAV meanP.16 mmHgAV Vmax: 1.36 m/Armen | | Vmean: 0.98 m/Armen VTI: 29.20 cmAVA Vmax: 2.97 cm2AVA (VTI): 2.95 [id number] Dopp: | | 5.01 l/minHR: 58.18 BPMLVOT [...] A | | Good: 0.32 m/sTV Dec [place]: 2.31 m/s2TV Dec Time: 215.03 msTV E Good: 0.49 m/sTV | | E/A Ratio: 1.53 Notched Blade Loader: DOMITILAAuthenticated by: JENNIFER Ward | | Date/Time: -- [id number]:39:27 IMPRESSION: 1. Left ventricular systolic function is [...] | |TAPSE: 1.88 cm | |AR Dec [place]: 2.33 m/s2 | |AR Dec Time: 1398.10 [...] A Good: 0.32 m/s | |TV Dec [place]: 2.31 m/s2 | |TV Dec Time: 215.03 ms | |TV E Good: 0.49 m/s | |TV E/A Ratio: 1.53 | | | |Notched Blade Loader: GD | |Authenticated by: JENNIFER SWAIN MD | |Report Date/Time: -- [id number]:27 | | | |IMPRESSION: | |1. Left [...] | | | Fingerstick | performed at [facility];[address] | | LAB | | | | [address];[place] | | | | | | [address] | | | | + + + [...] | | | | | performed at [facility];[address] | | | | | | [address];[place], [place] | | | | | | [address] | | | | + + + [...] | | | Basophils | performed at [facility], [address] | K/uL | LAB | | | | [address], | | | | | | [place] [address] | | | | + + + [...] EXTERNAL | | | | performed at [facility], [address] | uIU/mL | LAB | | | | [address], | | | | | | [place] [address] | | | | + + + [...] EXTERNAL | | | | performed at [facility], [address] | | LAB | | | | [address] [facility], | | | | | | [place] [address] | | | | + + + [...] EXTERNAL | | | | performed at [facility];[address] | | LAB | | | | [address];[place] | | | | | | [address] | | | | + + + [...] EXTERNAL | | | | performed at [facility], [address] | | LAB | | | | [address], | | | | | | [place] [address] | | | | + + + [...] + + | Hemoglobin | 5.5Comment: The Omani | 4.0 - 6.0 % | EXTERNAL [...] | performed at [facility], [address] | | | | | | [address], | | | | | | [place] [address] | | | | + + + [...] | | | | | | at [facility], [address] | | | | | | [facility], | | | | | | [place] [address] | | | | + + + [...] | | | | | | ACUTE MA Testing | | | | | | performed at [facility];[address] | | | | | | [address];[place], [place] | | | | | | [address] | | | | + + + [...] | | | Fingerstick | performed at [facility];[address] | | LAB | | | | [address];[place], [place] | | | | | | [address] | | | | + + + [...] | | | | | | ACUTE MA Testing | | | | | | performed at [facility];[address] | | | | | | [address];[place], [place] | | | | | | [address] | | | | + + + [...] | | | Fingerstick | performed at [facility];[address] | | LAB | | | | [address];[place], [place] | | | | | | [address] | | | | + + + [...] | + + + | DESIREE MCCONNELL US LOWER EXTREMITY VENOUS DOPPLER BILAT 07/25/2017 | [...] Conversion - 04/03/2019 7:51 PM PDT DESIREE Kilpatrick CHULA LOWER EXTREMITY | | VENOUS DOPPLER BILAT109/25/2016 [...] | + + + | DESIREE Kilpatrick ENEDINA 1930 87 years Male XR CHEST 2 [...] Conversion - 04/03/2019 7:51 PM PDT DESIREE Kilpatrick EICHHOLZ9/[birth year]/091809 years MaleXR | | CHEST 2 VIEW FRONTAL AND NPVKTVF16/5/2017 11:18 AM INDICATION: Shortness of breath | [...] | | | | | | ACUTE MA Testing | | | | | | performed at [facility];[address] | | | | | | [facility];[place], [place] | | | | | | [address] | | | | + + + [...] EXTERNAL | | | | performed at [facility] | | LAB | | | | [facility];[place], [place] | | | | | | [address] | | | | + + + [...] | | Performed by ED provider. Hemoccult quality control inspector heading Passed. | | + + + + [...] of | | | | | | 10-NOV-2016 | | | | | | 12:29,Previous [...] (500), | | | | | | newspaper or periodical editor ART BROWN (2) | | | | | | on 07/25/2017 5:09:42 PM | | | | | | | | | | + + + + + + + + | Specimen | + + | | + + + + + | Narrative | Performed At | + + + | Historically converted procedure from [facility] environment | EXTERNAL LAB | + + + [...]
--- OUTSIDE RECORDS SUMMARY | ~2019-12-21 | XMS | Encounter Summary ---
Demographics + + + | Address | [address] | | | [place] [address] | + + + | Home Phone | | + + + | Preferred Language | Unknown | + + + | Marital Status | | + + + | Hoahaoism Affiliation | 1001 | + + + | Race | Unknown | + + + | Ethnic Group | Unknown | + + + Author + + + | Author | [facility] | | | and [place] | + + + | Organization | [facility] | | [...] [place] | | | | | [address] | | + + + + + | Deanna Lawson | ECON | Unknown | | + + + + + Care Team Providers + +------+ + | Care Correspondence School Teacher Name | Role | Phone | + +------+ + | Barbara Gilman MD | PCP | | + +------+ + Encounter Details +--------+ + + + + | Date | Type | Department | Care Team | Description | +--------+ + + + + | 09/02/ | Orders Only | [facility] | Enoch Thompson, | | | 2019 | | CARDIOLOGY [place] | [address] | | | | | [address] | [place], [place] | | | | | [place], [place] | [address] | | | | | [address] | | | | | | [phone] | | | +--------+ + + + [...] [place] | | | | | | [address] | | | | | | | [...] [place] | | | | | | [address] | | | | | | | | +--------+ + + + + documented as of this encounter Visit Diagnoses Not on filedocumented in this encounter"
--- OUTSIDE RECORDS SUMMARY | ~2019-12-21 | XMS | Encounter Summary ---
Demographics + + + | Address | [address] | | | [place] [address] | + + + | Home Phone [...] [place] | | | | | [address] | | + + + + + | Deanna Lawson | ECON | Unknown | | + + + + + Care Team Providers + +------+ + | Care Drum Reel Cutter Name | Role | Phone | + [...] Provider Unknown | | | | | [place], [place] | | | | | | [address] | (Fax) | | | | | [phone] | | | +--------+ + + + [...] [place] | | | | | | [address] | | | | | | | | +--------+ + + + + | 02/09/ | Procedure | Cardiology | | | | 2019 | visit | | | | +--------+ + + + + | 03/09/ | Office | Nephrology | Isiah Jade MD | | | 2019 | Visit | | [address] [facility] | | | | | | [address] [place] | | | | | | [address] | | | | | | | | +--------+ + + + + documented as of this encounter Visit Diagnoses Not on filedocumented in this encounter"
--- OUTSIDE RECORDS SUMMARY | ~2019-12-21 | XMS | Encounter Summary ---
Demographics + + + | Address | [address] | | | [place] [address] | + + + | Home Phone | | + + + | Preferred Language | Unknown | + + + | Marital Status | | + + + | Restorationist Affiliation | 1001 | + + + | Race | Unknown | + + + | Ethnic Group | Unknown | + + + Author + + + | Author | [facility] | | | and [place] | + + + | Organization | [facility] | | | [...] [place] | | | | | [address] | | + + + + + | Deanna Lawson | ECON | Unknown | | + + + + + Care Team Providers + +------+ + | Care Torts Law Professor Name | Role | Phone | + [...] Provider Unknown | | | | | [place], [place] | | | | | | [address] | (Fax) | | | | | [phone] | | | +--------+ + + + [...] [place] | | | | | | [address] | | | | | | | [...] [place] | | | | | | [address] | | | | | | | | +--------+ + + + + documented as of this encounter Visit Diagnoses Not on filedocumented in this encounter"
--- OUTSIDE RECORDS SUMMARY | ~2019-12-21 | XMS | Encounter Summary ---
Demographics + + + | Address | [address] | | | [place] [address] | + + + | Home Phone [...] + + | Author | [facility] | | | and [place] | + + + | Organization | [facility] | | | [...] [place] | | | | | [address] | | + + + + + | Deanna Lawson | ECON | Unknown | | + + + + + Care Team Providers + +------+ + | Care Road Contractor Name | Role | Phone | + +------+ + PCP | Unavailable | + +------+ + Encounter Details +--------+ + + + + | Date | Type | Department | Care Team | Description | +--------+ + + + + | 01/07/ | Orders Only | [facility] | Conversion | | | 2019 | | NEPRHOLOGY [place] | Transaction, | | | | | [address] | Provider Unknown | | | | | [address] [place], [place] | [phone] | | | | | [address] | | | | | | [phone] | | | +--------+ + + + [...] [place] | | | | | | [address] | | | | | | | | +--------+ + + + + | 02/09/ | Procedure | Cardiology | | | | 2019 | visit | | | | +--------+ + + + + | 03/09/ | Office | Nephrology | Isiah Jade MD | | | 2019 | Visit | | [address] [facility] | | | | | | [address] [place] | | | | | | [address] | | | | | | | [...] - 1.030 | EXTERNAL | | | [place], | | | LAB | | | [...]
--- OUTSIDE RECORDS SUMMARY | ~2019-12-21 | XMS | Encounter Summary ---
Demographics + + + | Address | [address] | | | [place] [address] | + + + | Home Phone [...] [place] | | | | | [address] | | + + + + + | Deanna Lawson | ECON | Unknown | | + + + + + Care Team Providers + +------+ + | Care Television Presenter Name | Role | Phone | + +------+ + PCP | Unavailable | + +------+ + Encounter Details +--------+ + + + + | Date | Type | Department | Care Team | Description | +--------+ + + + + | 01/07/ | Orders Only | [facility] | Conversion | | | 2019 | | NEPRHOLOGY [place] | Transaction, | | | | | [address] | Provider Unknown | | | | | [address] [place], [place] | [phone] | | | | | [address] | | | | | | [phone] | | | +--------+ + + + [...] [place] | | | | | | [address] | | | | | | | [...] [place] | | | | | | [address] | | | | | | | [...] - 1.030 | EXTERNAL | | | [place], | | | LAB | | | [...]
--- OUTSIDE RECORDS SUMMARY | ~2019-12-21 | XMS | Encounter Summary ---
Demographics + + + | Address | [address] | | | [place] [address] | + + + | Home Phone [...] [place] | | | | | [address] | | + + + + + | Deanna Lawson | ECON | Unknown | | + + + + + Care Team Providers + +------+ + | Care Team Otr Truck Driver Name | Role | Phone | + [...] + | 12/01/ | Telephone | [facility] | Charlee Oswald | Testing | | 2020 | | CARDIOLOGY [place] | [address] | | | | | [address] | [address] | | | | | [address] | [place] [address] | | | | | [place], [place] | [phone] | | | | | [address] | | | | | | [phone] | | | +--------+ + + + [...] [place] | | | | | | [address] | | | | | | | [...] [place] | | | | | | [address] | | | | | | | [...]
--- OUTSIDE RECORDS SUMMARY | ~2019-12-21 | XMS | Encounter Summary ---
Demographics + + + | Address | [address] | | | [place] [address] | + + + | Home Phone [...] [place] | | | | | [address] | | + + + + + | Deanna Lawson | ECON | Unknown | | + + + + + Care Team Providers + +------+ + | Care Winderman Name | Role | Phone | + [...] + + | 11/10/ | Procedure | [facility] | | Cardiac pacemaker in | | 2019 | visit | CARDIOLOGY [place]IA | | situ (Primary Dx) | | | | [address] | | | | | | [place] | | | | | | [address] | | | | | | [phone] | | | +--------+ + + + [...] | | | | | [place], [place] | | | | | | [address] | | | | | | | [...] | | | | | | [address] [place], [place] | | | | | | [address] | | | | | | | [...] Mercedez Jensen | LUCA | | Herson, Egg And Spice Mixer 11/12/2019 4:50 PMPACETXKER REMOTE | | | INTERROGATION REPORT Name: Andres Guzmán PCP: Barbara Elkins | | | MD Mukul : 1930MRN: [id number] Primary cardiology | | | provider: Charlee Oswald Primary electrophysiology provider: Enoch | | | Jay Device 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
--- OUTSIDE RECORDS SUMMARY | ~2019-12-21 | XMS | Clinical Summary ---
Demographics + + + | Address | [address] | | | [place] [address] | + + + | Home Phone | | + + + | Preferred Language | Unknown | + + + | Marital Status | | + + + | Religion Affiliation | 1001 | + + + | Race | Unknown | + + + | Ethnic Group | Unknown | + + + Author + + + | Author | [facility] (Historical as of | | | 04-06-19) | + + + | Organization | [facility] (Historical as of | | | 04-06-19) | + + + | Address | Unknown | + + + | Phone | Unavailable | + + + Support + + + + + | Name | Relationship | Address | Phone | + + + + + | Marissa Mcconnell | ECON | [address] | | | | | [place] | | | | | [address] | | + + + + + | Deanna Lawson | ECON | Unknown | | + + + + + Care Team Providers + +------+ + | Care Environmental Restoration Planner Name | Role | Phone | + +------+ + | Barbara Gilman MD | PP | | + +------+ + Allergies + + + + + + | Active Allergy | Reactions | Severity | Noted | Comments | | | | | Date | | + + + + + + | Codeine | Nausea and Vomiting, | Low | 04/24/20 | | | | Vertigo | | 14 | | + + + + + + | Morphine And Related | Nausea Only | Low | 04/24/20 | Slow to recover | | | | | 14 | | + + + + + + Current Medications + + +--------+---------+------+------+-------+ | Prescription | Sig. | Disp. | Refills | Star | End | Statu | | | | | | t | Date | s | | | | | | Date | | | + + +--------+---------+------+------+-------+ | metFORMIN | Take 500 mg by mouth | | | | | Activ | | (GLUCOPHAGE) 500 MG | 3 (three) times | | | | | e | | tablet | daily. | | | | | | + + +--------+---------+------+------+-------+ | lisinopril | Take 20 mg by mouth | | | | | Activ | | (ZESTRIL) 20 MG | 2 (two) times daily. | | | | | e | | tablet | | | | | | | + + +--------+---------+------+------+-------+ | terazosin (HYTRIN) | Take 10 mg by mouth | | | | | Activ | | 10 MG capsule | daily with dinner. | | | | | e | + + +--------+---------+------+------+-------+ | pravastatin | Take 40 mg by mouth | | | | | Activ | | (PRAVACHOL) 80 MG | nightly. | | | | | e | | tablet | | | | | | | + + +--------+---------+------+------+-------+ | ascorbic acid | Take 500 mg by mouth | | | | | Activ | | (VITAMIN C) 500 MG | daily. | | | | | e | | tablet | | | | | | | + + +--------+---------+------+------+-------+ | spironolactone | Take 1 tablet by | 60 | 11 | 12/1 | | Activ | | (ALDACTONE) 25 MG | mouth 2 (two) times | tablet | | /20 | | e | | tablet | daily. | | | 17 | | | + + +--------+---------+------+------+-------+ | ferrous sulfate, | Take 65 mg of iron | | | | | Activ | | 65 FE, 325 (65 FE) | by mouth every other | | | | | e | | MG | day. | | | | | | | tabletIndications: | | | | | | | | Iron Deficiency | | | | | | | | Anemia | | | | | | | + + +--------+---------+------+------+-------+ | carvedilol (COREG) | Take 1 tablet by | 60 | 11 | 11/0 | | Activ | | 25 MG tablet | mouth 2 (two) times | tablet | | 5/20 | | e | | | daily with meals. | | | 18 | | | + + +--------+---------+------+------+-------+ | meclizine | Take 1 tablet by | 90 | 0 | 01/1 | | Activ | | (ANTIVERT) 25 MG | mouth 3 (three) | tablet | | 3/20 | | e | | tablet | times daily as | | | 19 | | | | | needed. | | | | | | + + +--------+---------+------+------+-------+ | allopurinol | Take 1 tablet by | 90 | 3 | 05/2 | | Activ | | (ZYLOPRIM) 100 MG | mouth daily. | tablet | | 4/20 | | e | | tablet | | | | 19 | | | + + +--------+---------+------+------+-------+ | apixaban (ELIQUIS) | Take 1 tablet by | 60 | 11 | 06/0 | | Activ | | 2.5 MG tablet | mouth 2 (two) times | tablet | | / | | e | | | daily. | | | 19 | | | + + +--------+---------+------+------+-------+ | furosemide (LASIX) | Take 40 mg by mouth | | | | | Activ | | 40 MG | 6 days per week. | | | | | e | | tabletIndications: | | | | | | | | Edema | | | | | | | + + +--------+---------+------+------+-------+ Active Problems + + + | Problem | Noted Date | + + + | History of stroke | 03/25/2019 | + + + + + | Overview: stroke in 2007 stroke with right leg weakness with | | residual right-sided facial and lip droop, | + + + + + | Moderate to severe pulmonary hypertension (HCC) | 09/13/2018 | + + + | Moderate tricuspid regurgitation | 09/13/2018 | + + + | Dilated aortic root (HCC) | 09/13/2018 | + + + | Stage 3 chronic kidney disease (HCC) | 09/13/2018 | + + + | Snoring | 09/03/2017 | + + + + + | Overview: A sleep study did not show sleep apnea apparently. | + + + + + | Chronic diastolic heart failure (HCC) | 07/25/2017 | + + + + [...] (hyperlipidemia) | 06/04/2015 | + + + + + | Last Assessment & Plan: Hyperlipidemia, continue current meds | | at current dose (pravastatin). | + + + + + | Type 2 diabetes mellitus without complication (HCC) | 06/04/2015 | + + + + + | Last Assessment & Plan: DM2, managed by PCP. | + + + + + | Permanent atrial fibrillation (HCC) | 04/24/2014 | + + + + + | Overview: Permanent A. Fib. The left atrium was markedly | | dilated and he had severe pulmonary hypertension(75mm)on an echo | | on July 26, 2017. The LV systolic function was normal. There | | was mild concentric LVH. He has a single-chamber [employer] | | Scientific ventricular pacemaker that is nearing elective | | replacement indicator status. He has been pacing the right | | ventricle 99% of the time. Anticoagulated with apixaban. He has | | only been taking 2.5 mg twice per day, because of renal | | dysfunction and age. The chads 2 vascular score is 4. Last | | Assessment & Plan: Chronic A fib, CHADS2 Score 5 (HTN, age, DM, | | CVA), on warfarin, [facility]. 85yo WM, continues to | | be modestly active, denying any chest discomfort or shortness of | | breath.. He is unaware of any palpitations or lightheadedness. | | No new visual disturbances, dysarthria, dysphasia, lateralizing | | signs or symptoms. No significant bleeding or bruising. Since | | our last visit, he had acute gallbladder attack, underwent | | laparoscopic cholecystectomy. His echocardiogram is reviewed, | | there is a suggestion of a posterobasal infarction, however no | | perfusion study is negative for infarction, no ischemia, and his | | ejection fraction is well-preserved. Tolerating medications. No | | changes in therapy. Hx CABG: noHx PCI/stent: noHx | | Pacemaker/ICD: 07/30/2010, SYDNEE Kinsey S601, SN: [id number].Last Cath: | | naLast Echo, 06/10/2015: LV dimensions NML, suspect old | | postero-basal infarction, biplane LVEF 53%, moderate bi-Atrial | | enlargement, mild RVE with pacing catheter in RV, mild AI, mild | | MR, mild-moderate TR, mild PI, est systolic PAP 46-51mmHg, mild | | Pulmonary HTN.Last stress test, 09/08/2015: Lexiscan, perfusion | | images NML, LVEF 64%.ECG, 10/30/2015 ([facility]): VVI-pacing, | | frequent PVC's. | + + + + + | Cardiac pacemaker in situ | 04/24/2014 | + + + + + | Overview: He has a [employer] Altrua single-chamber | | RV pacemaker that was placed on July 30, 2010 because of | | heart block, in the context of permanent atrial | | fibrillation.02/27/18:Appropriate device function was seen today. | | The pacing threshold in the RV was 0.8 V at 0.5 ms. There was no | | reliable underlying rhythm. He has been pacing 99% of the time in | | the RV, with a lower rate limit of 60 bpm. The estimated | | longevity from the device is less than 0.5 years. No significant | | arrhythmias have been seen. Monthly battery checks will be | | initiated.August 30, 2018:Appropriate device function was seen | | today. The pacing threshold was 0.5 V at 0.6 ms and R waves were | | 10.9 mV. Patient has occurred 99% of the time in the RV. The | | pacing mode is VVIR (permanent atrial fibrillation). The | | estimated longevity is less than 0.5 years.02/01/2019:The device | | is now at MIRIAN. A change that has been scheduled for 02/04/2019. | | The risks, benefits, and rationale have been reviewed. Last | | Assessment & Plan: SSS/pacemaker therapy.Pacemaker implanted | | 07/30/2010, SYDNEE Kinsey S601, SN: [id number].[facility]. | + + + + + | Essential hypertension with goal blood pressure less than 130/80 | 04/24/2014 | + + + + + | Overview: Controlled on current therapy. He is now on | | carvedilol 25 mg twice a day and lisinopril 20 mg twice a day | | along with Lasix 40 mg per day and spironolactone 25 mg twice a | | day. Hytrin 10 mg daily at bedtime. Last Assessment & Plan: | | HTN, controlled, continue current meds at current doses | | (amlodipine, lisinopril, metoprolol).Lab, 10/30/2015: Liver | | enzymes NML, K: 3.8, BUN/Cr: 24/1.2 (GFR 57), glu: 189 | | WBC: 6.7, H/H: 12.5/37.4, plt: 146, INR: 1.4, | | Blood Type: A+ | + + Resolved Problems +---------+ + + | Problem | Noted | Resolved | | | Date | Date | +---------+ + + | Vertigo | 09/02/19 | | | | 19 | 9 | +---------+ + + + + | Overview: He was hospitalized last week with significant | | vertigo and nausea. A CT angiogram did not show any significant | | stenosis however the left internal carotid artery had a 40% | | stenosis. There were mild calcifications of less than 15% in the | | remaining internal and external carotid arteries. A head CT was | | consistent with global atrophy. There were significant areas of | | patchy low density in the periventricular white matter, | | consistent with small vessel ischemic changes (chronic). He was | | treated effectively by a physical therapist. Symptoms are worse | | if he turns to the right. I recommended meclizine 25 mg 3 times a | | day, if needed for vertigo. | + + + + + + | Atrial fibrillation, permanent (HCC) | 04/26/20 | | | | 18 | 9 | + + + + | Productive cough | 03/04/20 | | | | 18 | 8 | + + + + + + | Overview: He has a cough with clear sputum. Mucinex 600 mg | | twice a day was recommended. | + + + + + + | Acute kidney injury (HCC) | 07/25/20 | | | | 17 | 7 | + + + + Family History + + +------+ + | [...] HTN | + +------+ + + | Father | | | [place] | | | | (Age | | [...] + + | Sister | | | [place] | | | | (Age | | | | | 83) | | + +------+ + + | Sister | | | colon cancer | | | | (Age | | | | | 88) | | + +------+ + + Social History + + + +--------+ + | Tobacco Use | Types | Packs/Day | Years | Date | | | | | Used | | + + + +--------+ + | Former Smoker | Cigarettes, Pipe | 0.75 | 35 | Quit: 11/28/1981 | + + + +--------+ + + +---+---+---+ | Smokeless Tobacco: | | | | | Never Used | | | | + +---+---+---+ + + +---------+ + | Alcohol Use | Drinks/We | oz/Week | Comments | | | ek | | | + + +---------+ + | No | 0 | 0.0 | 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 | | | Standard | | | | | drinks or | | | | | | | | | | equivalen | | | | | t | | | + + +---------+ + + + + | Sex Assigned at | Date Recorded | | | | + + + | Male | 07/25/2017 11:08 AM PST | + + + Last Filed Vital Signs + + + + | Vital Sign | Reading | Time Taken | + + + + | Blood Pressure | 130/58 | 04/05/2019 11:33 AM PDT | + + + + | Pulse | 66 | 04/05/2019 11:33 AM PDT | + + + + | Temperature | 36.7 C (98.1 F) | 02/11/2019 2:26 PM PDT | + + + + | Respiratory Rate | 18 | 03/25/2019 12:59 PM PDT | + + + + | Oxygen Saturation | 99% | 03/25/2019 12:59 PM PDT | + + + + | Inhaled Oxygen | - | - | | Concentration | | | + + + + | Weight | 70.6 kg (155 lb 11.2 | 04/05/2019 11:33 AM PDT | | | oz) | | + + + + | Height | 165.1 cm (5' 5") | 04/05/2019 11:33 AM PDT | + + + + | Body Mass Index | 25.91 | 04/05/2019 11:33 AM PDT | + + + + Plan of Treatment +--------+ + + + + | Date | Type | Specialty | Care Team | Description | +--------+ + + + + | 02/09/ | Documentati | | | | | 2020 | on Only | | | | +--------+ + + + + + + + + + | Health Maintenance | Due Date | Last Done | Comments | + + + + + | Diabetic Eye Exam | | | | | | 2 | | | + + + + + | Diabetic Foot Exam | | | | | | 2 | | | + + + + + | Microalbumin | | | | | Screening | 2 | | | + + [...] | | | | | Pneumococcal 65+ | 7 | | | | Low/Medium Risk (1 | | | | | of 2 - PCV13) | | | | + + + + + | Hemoglobin A1c | | 07/26/2017 | | | | 8 | | | + + + + + | Vaccine: Influenza | | | | | (Season Ended) | 0 | | | + + + + + Implants + +--------+------+ +--------+--------+--------+ | Implanted | Type | Area | Manufacture | Device | Expira | Model | | | | | r | | tion | / | | | | | | Identi | Date | Serial | | | | | | fier | | / Lot | + +--------+------+ +--------+--------+--------+ | Pacer-02/04/2019Implanted: | Cardia | | | | | [id number] | | Qty: 1 on 02/04/2019 by | c | | | | | /[id number] | | Enoch Thompson MD | Rhythm | | | | | 1 / | | | | | | | | | | | Manage | | | | | | | | ment | | | | | | + +--------+------+ +--------+--------+--------+ Results Not on filefrom Last 3 Months Insurance + +--------+ +------+-------+ + | Payer | Benefi | Subscriber | Type | Phone | Address | | | t Plan | ID | | | | | | / | | | | | | | Group | | | | | + +--------+ +------+-------+ + | MEDICARE | MEDICA | [id number] | | | [address] | | | RE | | | | [place] [address] | | | IP-OP | | | | | + +--------+ +------+-------+ + | COMMERCIAL OTHER | COMMER | [id number] | | | | | | CIAL | | | | | | | GENERI | | | | | | | C PLAN | | | | | + +--------+ +------+-------+ + + +--------+ +--------+ + + | Guarantor Name | Accoun | Relation to | Date | Phone | Billing Address | | | t Type | Patient | of | | | | | | | | | | + +--------+ +--------+ + + | DESIREE MCCONNELL | Person | Self [birth year] | Home: | [address] | | [place] | al/Amrik | | 1930 | [phone] [place] | | | quique | | [phone] [phone] | + +--------+ +--------+ + +
--- OUTSIDE RECORDS SUMMARY | ~2019-12-21 | XMS | Encounter Summary ---
Demographics + + + | Address | [address] | | | [place] [address] | + + + | Home Phone [...] [place] | | | | | [address] | | + + + + + | Deanna Lawson | ECON | Unknown | | + + + + + Care Team Providers + +------+ + | Care Maintenance Mechanic Telephone Name | Role | Phone | + +------+ + PCP | Unavailable | + +------+ + Encounter Details +--------+ + + + + | Date | Type | Department | Care Team | Description | +--------+ + + + + | 07/28/ | Hospital | [facility] | Robe Prasad | | | 2009 - | Encounter | [facility] | MD Brendan [address] | | | | | CARE FLOOR [address] | [address] [place] [address] | | | 07/31/ | | [address] | [place] [address] | | | 2009 | | [place], [place] | [phone] | | | | | [address] | | | | | | [phone] | | | +--------+ + + + [...] [place] | | | | | | [address] | | | | | | | | +--------+ + + + + | 02/09/ | Procedure | Cardiology | | | | 2019 | visit | | | | +--------+ + + + + | 03/09/ | Office | Nephrology | Isiah Jade MD | | | 2019 | Visit | | [address] [facility] [address] | | | | | | [address] [place] | | | | | | [address] | | | | | | | [...] | | | The pacemaker is a [employer] Altrua 60, model S601. Serial | | | number is [id number]. The electrode is a [employer] Avenuerus electrode model | | | number 4136, length 50 cm. Serial number is [id number]. PACING AND | | | SENSING PARAMETERS [...] DT: | | | 08/11/2010 07:18 A NIDA/arline/[id number]/ Read by TODD HARDEN DO | | [...] DATA | | The pacemaker is a [employer] Altrua 60, model S601. Serial | | number is [id number]. | | The electrode is a [employer]ant Dextrus electrode model number 4136, length | | 50 cm. Serial number is [id number]. | | | | PACING AND SENSING [...] | P | | A | | NIDA/arline/[id number]/ | | | | Read by | | TODD HARDEN DO 08/10/2010 09:46 P | | | | | + + documented in this encounter Visit Diagnoses Not on filedocumented in this encounter"
--- OUTSIDE RECORDS SUMMARY | ~2019-12-21 | XMS | Encounter Summary ---
Demographics + + + | Address | [address] | | | [place] [address] | + + + | Home Phone [...] [place] | | | | | [address] | | + + + + + | Deanna Lawson | ECON | Unknown | | + + + + + Care Team Providers + +------+ + | Care Shade Maker Name | Role | Phone | + +------+ + | Barbara Gilman MD | PCP | | + +------+ + Encounter Details +--------+ + + + + | Date | Type | Department | Care Team | Description | +--------+ + + + + | 06/25/ | Orders Only | [facility] | Charlee Oswald | | | 2018 | | CARDIOLOGY [place] | [address]SH[address] | | | | | [address] | [address] | | | | | [address] | [place] [address] | | | | | [place] | [phone] | | | | | [address] | | | | | | [phone] | | | +--------+ + + + [...] [place] | | | | | | [address] | | | | | | | [...] [place] | | | | | | [address] | | | | | | | | +--------+ + + + + documented as of this encounter Visit Diagnoses Not on filedocumented in this encounter"
--- OUTSIDE RECORDS SUMMARY | ~2019-12-21 | XMS | Encounter Summary ---
Demographics + + + | Address | [address] | | | [place] [address] | + + + | Home Phone [...] [place] | | | | | [address] | | + + + + + | Deanna Lawson | ECON | Unknown | | + + + + + Care Team Providers + +------+ + | Care Underwater Roboticist Name | Role | Phone | + [...] [address] | | | | | [place], [place] | [place] [address] | | | | | [address] | [phone] | | | | | [phone] | | | +--------+ + + + [...] [place] | | | | | | [address] | | | | | | | | +--------+ + + + + | 02/09/ | Procedure | Cardiology | | | | 2019 | visit | | | | +--------+ + + + + | 03/09/ | Office | Nephrology | Isiah Jade MD | | | 2019 | Visit | | [address] [facility] [address] | | | | | | [address] [place] | | | | | | [address] | | | | | | | [...] TR Vmax: 3.45 m/s | | | Radio Installer Automobile: DAR Authenticated by: Vikki Godoy Report | | | Date/Time: -- [id number]:50 | | + + + + ------+ [...] cmLVPWd: 0.86 cmLVOT Area: | | 3.66 [id number] Diam: 2.15 cm%FS: 30.74 %EF(Teich): 57.74 %ESV(Teich): [...] mlLAESV Index (A-L): 55.88 ml/m2LAAs A2C: 25.46 em2ONEJU A-L | | A2C: 88.15 mlLALs A2C: 6.24 cmLAAs A4C: 29.53 [id number] A-L A4C: 110.72 mlLALs | | A4C: 6.68 cmRAAs: 31.00 [id number] A-L: 119.55 mlRAESV MOD: 117.88 mlRALs: 6.82 | | cmTAPSE: 1.87 cmAV maxP.43 mmHgAV meanP.22 mmHgAV Vmax: 1.05 m/Armen | | Vmean: 0.69 m/Armen VTI: 18.19 cmAVA Vmax: 2.31 cm2AVA (VTI): 2.75 mb8ILBP Vmax: | | 0.00 cm2/m2AVAI (VTI): 0.00 cm2/m2LVOT maxP.76 mmHgLVOT meanP.05 mmHgLVSI | | Dopp: 27.38 ml/m2LVSV Dopp: 50.12 mlLVOT Vmax: 0.66 m/sLVOT Vmean: 0.48 m/sLVOT | | VTI: 13.68 cmMV A Good: 0.02 m/sMV DecT: 135.32 msMV E Good: 0.84 m/sMV E/A | | Ratio: 38.78MV PHT: 39.24 msMVA By PHT: 5.60 xs1Lqthlg e': 0.03 m/sSeptal E/e': | | 21.63Lateral e': 0.08 m/sLateral E/e': 10.19RAP: 15 mmHgRVSP: 62.86 mmHgTR | | maxP.86 mmHgTR Vmax: 3.45 m/s Radio Installer Automobile: DENISSEuthenticated by: Jayne | | [facility] Care ServiceshedReport Date/Time: -- [id number]:50 IMPRESSION: 1. The left ventricle is | [...] |TR Vmax: 3.45 m/s | | | |Radio Installer Automobile: | |Authenticated by: Vikki Godoy | |Report Date/Time: -- [id number]:23:50 | | | |IMPRESSION: | |1. The [...]
--- OUTSIDE RECORDS SUMMARY | ~2019-12-21 | XMS | Encounter Summary ---
Demographics + + + | Address | [address] | | | [place] [address] | + + + | Home Phone [...] [place] | | | | | [address] | | + + + + + | Deanna Lawson | ECON | Unknown | | + + + + + Care Team Providers + +------+ + | Care Paint Sprayer Sandblaster Name | Role | Phone | + +------+ + | Barbara Gilman MD | PCP | | + +------+ + Encounter Details +--------+ + + + + | Date | Type | Department | Care Team | Description | +--------+ + + + + | 01/25/ | Orders Only | [facility] | Enoch Thompson, | | | 2019 | | CARDIOLOGY [place] | [address] | | | | | [address] | [address] [place], [place] | | | | | [place], [place] | [address] | | | | | [address] | | | | | | [phone] | | | +--------+ + + + [...] [place] | | | | | | [address] | | | | | | | [...] [place] | | | | | | [address] | | | | | | | | +--------+ + + + + documented as of this encounter Visit Diagnoses Not on filedocumented in this encounter"
--- OUTSIDE RECORDS SUMMARY | ~2019-12-21 | XMS | Encounter Summary ---
Demographics + + + | Address | [address] | | | [place] [address] | + + + | Home Phone [...] [place] | | | | | [address] | | + + + + + | Deanna Lawson | ECON | Unknown | | + + + + + Care Team Providers + +------+ + | Care Optical Glass Silverer Name | Role | Phone | + +------+ + | Barbara Gilman MD | PCP | | + +------+ + Encounter Details +--------+ + + + + | Date | Type | Department | Care Team | Description | +--------+ + + + + | 04/01/ | Orders Only | [facility] | Tristan Rajput, | | | 2018 | | [facility] | SPORTS MEDICINE TRAINER [address] | | | | | [address] | [address] | | | | | [address] [facility] [place] | [place] | | | | | [address] | [address] | | | | | [phone] | [phone] | | | | | | | [...] [place] | | | | | | [address] | | | | | | | | +--------+ + + + + | 02/09/ | Procedure | Cardiology | | | | 2019 | visit | | | | +--------+ + + + + | 03/09/ | Office | Nephrology | Isiah Jade MD | | | 2019 | Visit | | [address] [facility] | | | | | | [address] [place] | | | | | | [address] | | | | | | | [...] | | | LAB | | | [facility] | | | | | + + [...]
--- OUTSIDE RECORDS SUMMARY | ~2019-12-21 | XMS | Encounter Summary ---
Demographics + + + | Address | [address] | | | [place] [address] | + + + | Home Phone [...] [place] | | | | | [address] | | + + + + + | Deanna Lawson | ECON | Unknown | | + + + + + Care Team Providers + +------+ + | Care Rubber Trimmer Name | Role | Phone | + +------+ + | Barbara Gilman MD | PCP | | + +------+ + Encounter Details +--------+ + + + + | Date | Type | Department | Care Team | Description | +--------+ + + + + | 09/08/ | Orders Only | [facility] | Todd Iqbal Ajith | | | 2016 | | CARDIOLOGY [place] | MD [address] | | | | | [facility] [address] | [address] | | | | | [address] | [place] [address] | | | | | [place], [place] | [phone] | | | | | [address] | | | | | | [phone] | | | +--------+ + + + [...] [place] | | | | | | [address] | | | | | | | [...] [place] | | | | | | [address] | | | | | | | [...] At | + + + | [facility] CARDIOLOGY Nuclear Lexiscan Stress Test History: | [...] Leonides Bullock Conversion - 04/11/2019 9:03 PM [facility] | | Nuclear Lexiscan [...]
--- OUTSIDE RECORDS SUMMARY | ~2019-12-21 | XMS | Encounter Summary ---
Demographics + + + | Address | [address] | | | [place] [address] | + + + | Home Phone | | + + + | Preferred Language | Unknown | + + + | Marital Status | | + + + | Spiritism Affiliation | 1001 | + + + | Race | Unknown | + + + | Ethnic Group | Unknown | + + + Author + + + | Author | [facility] | | | and [place] | + + + | Organization | [facility] | | [...] [place] | | | | | [address] | | + + + + + | Deanna Lawson | ECON | Unknown | | + + + + + Care Team Providers + +------+ + | Care Psychiatric Nurse Practitioner Name | Role | Phone | + +------+ + | Barbara Gilman MD | PCP | | + +------+ + Encounter Details +--------+---------+ + + + | Date | Type | Department | Care Team | Description | +--------+---------+ + + + | 05/07/ | Office | [facility] | Enoch Thompson, | Cardiac pacemaker in | | 2019 | Visit | CARDIOLOGY OPHELIA | [address] | situ; Permanent | | | | [address] | [place], [place] | atrial fibrillation | | | | [place], [place] | [address] | (HCC) | | | | [address] | | | | | | [phone] | | | +--------+---------+ + + + [...] pacemaker in situ Overview He has a [employer] Altrua single-chamber RV pacemaker that was [...] function was seen tofrancesca ay for this [employer] single-chamber device. The pacing threshold was [...] mild concentric LVH. He has a single-chamber [employer] ventricular pacemaker that is nearing elective [...] mild concentric LVH. He has a single-chamber [employer] ventricular pacemaker that is nearing elective replacement indicator status. He has been pacing the right ventricle 99% o f the time. Anticoagulated with apixaban. He has only been taking 2.5 mg twice per day, because of cierra al dysfunction and age. The chads 2 vascular score is 4. 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 Priority: High Note Last Updated: 05/07/2019 He has a [employer] Altrua single-chamber RV pacemaker that was [...] function was seen tofrancesca marcus for this [employer] single-chamber device. The pacing threshold was [...] arora. Type 2 diabetes mellitus without complication ([facility]) 06/04/2015 Reading: Continue current therapy. [...] notes on file Myrtle Esteves Me dical Bookmaker'S Clerk - 05/07/2019 11:30 AM Sheela COOPER Note- [...] [place] | | | | | | [address] | | | | | | | | +--------+ + + + + | 02/09/ | Procedure | Cardiology | | | | 2019 | visit | | | | +--------+ + + + + | 03/09/ | Office | Nephrology | Isiah Jade MD | | | 2019 | Visit | | [address] [facility] | | | | | | [address] [place] | | | | | | [address] | | | | | | | | +--------+ + + + + documented as of this encounter Visit Diagnoses + + | Diagnosis | + + | Cardiac pacemaker in situ | + + | Permanent atrial fibrillation (HCC) Atrial fibrillation | + + documented in this encounter
--- OUTSIDE RECORDS SUMMARY | ~2019-12-21 | XMS | Encounter Summary ---
Demographics + + + | Address | [address] | | | [place] [address] | + + + | Home Phone [...] [place] | | | | | [address] | | + + + + + | Deanna Lawson | ECON | Unknown | | + + + + + Care Team Providers + +------+ + | Care Box Liner Name | Role | Phone | + [...] | | Required | | atrial | ADMINISTRATIVE ASSISTANT OFFICE MANAGER [address] | 19 | | | | | fibrillation | [place] | [facility] [place] | | | | | (HCC) | [address] | [address] | | | | | Moderate to | [place], [place] | [address] | | | | | severe | [address] | [place] | | | | | pulmonary | Phone: | [phone] Phone: | | | | | hypertension | [phone] | [phone] | | | | | (HCC) Risk | Fax: | Fax: | | | | | factors for | [phone] | [phone] | | | | | obstructive | [...] + + | 10/27/ | Office | [facility] | Charlee Oswald | Permanent atrial | | 2020 | Visit | CARDIOLOGY ALYX | [address] | fibrillation (HCC) | | | | [address] | [address] | (Primary Dx); | | | | [address] | [place] [address] | Cardiac pacemaker in | | | | [place] | [phone] | situ; Chronic | | | | [address]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 | | | | [phone] | | failure (HCC); | | | [...] Non fasting labs to be done at [facility] in 2 weeks Your Echo looks [...] have referred you to Dr. Dorsey at [facility] , call [phone] for an appoi ntment next week I will have you establish care with Dr. Sanchez who will be your strapping machine operator See me back in 4 weeks documented [...] cirrhosis which is also followed by the [place], though liver enzymes normal . He was previously diagnosed with sleep apnea by the [place], but updated sleep study performed by the [place] in 2018 was reported by him as being negative His IZI0UX7- VASC score is 6( HTN, age, stroke, [...] recreational or illicit drug use. Exercises with [employer] and yard work, tolerates without chest pain or dyspnea. 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 Also worked for a [employer] company and then a [employer], but now just enjoys his leisure ti [...] or rhonchi noted, respirations unlab ored HEART: [facility] pacemaker site well Healed, stable to palpation. [...] : 02/04/2019: ( Dr. Thompson) : new e(ye)BRAIN Accolade MRI com patible model L310, serial #[id number] pacemaker. The current lead is a e(ye)BRAIN model 4136, serial #[id number].Mode for pacing, VVIR with dual-sensor technology programmed on. T he lower rate will be 60 and upper rate 120beats per minute. The output will be 2 volts at 0.4 milliseconds with sensitivity of 2.5 millivolts. Pacing and sensing will be bipolar Previous Implant Pacemaker/ICD: 07/30/2010, BS Altlevigenia S601, SN: [id number]. [facility]. Addendum: Last [...] function was seen today for th is [employer] single-chamber device. The pacing threshold was [...] 15 mmHg. Normal pulmonic valve with mild UT. Sinus of Valsalva dilated about 4.26 cm, [...] change, except less pulmonar y hypertension Echo:07/26/2017: [facility]: EF >70 percent. LV normal in [...] PHS 75,TOTAL BILI 0.6,ALB 3.9 Labs: 02/18/2018: ([facility]). CBC: WBC 6.2, RBC 3.46, hemoglobin 11.2, [...] 73. Thyroid: TSH 3.55 Labs: 08/23/2018: ( [facility]): CBC: WBC 6.6, RBC [...] stopped, as he has a very high CDY3LD0- VASC sco re of 6. For his [...] inadvertent rec ognition errors. Maximilian MCCONNELL [facility] 10/28/2019 Ubaldo gregory in this encounter [...] [place] | | | | | | [address] | | | | | | | | +--------+ + + + + | 02/09/ | Procedure | Cardiology | | | | 2019 | visit | | | | +--------+ + + + + | 03/09/ | Office | Nephrology | Isiah Jade MD | | | 2019 | Visit | | [address] [facility] [address] | | | | | | [address] [place] | | | | | | [address] | | | | | | | [...]
--- OUTSIDE RECORDS SUMMARY | ~2019-12-21 | XMS | Encounter Summary ---
Demographics + + + | Address | [address] | | | [place] [address] | + + + | Home Phone [...] [place] | | | | | [address] | | + + + + + | Deanna Lawson | ECON | Unknown | | + + + + + Care Team Providers + +------+ + | Care Daytime Caregiver Name | Role | Phone | + +------+ + PCP | Unavailable | + +------+ + Encounter Details +--------+ + + + + | Date | Type | Department | Care Team | Description | +--------+ + + + + | 02/04/ | Hospital | [facility] | Conversion | Presence of cardiac | | 2019 | Encounter | CENTER CV [facility]TRA OP | Transaction, | pacemaker; Permanent | | | | [address] | Provider Unknown | atrial fibrillation | | | | [place], [place] | [phone] | (HCC); Chronic | | | | [address]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 | | | | [phone] | Enoch Marks MD | failure ([facility]); | | | | | [address] | Pacemaker at end of | | | | | [place], [place] | battery life | | | | | [address] | | | | | | | [...] times | tablet | | 18 | | | | daily with meals. | [...] Note by Sendy Smith RN at 02/04/19 1648 Author: Sendy Smith RN Service: General Surgery Author Type: Registered Nurse Filed: 02/04/19 3080 Date of Service: 02/04/191429 Status: Signed Parachute Marker: Sendy Smith RN (Registered Nurse) Patient discharged home with family. Patient has all personal belongings, discharge instru ctions and prescriptions. We discussed, skin care, activity, diet, pain control, follow up care and appointments along with new prescribed medications. Patient expressed understandin g and had no questions. docume pooled in this encounter Plan of Treatment +--------+ + + + + | Date | Type | Specialty | Care Team | Description | +--------+ + + + + | 01/21/ | Office | Cardiology | Dina Sanchez DO | | | 2019 | Visit | | [address] | | | | | | [place], [place] | | | | | | [id number] | | | | | | | | +--------+ + + + + | 02/09/ | Procedure | Cardiology | | | 2019 | visit | | | | +--------+ + + + + | 03/09/ | Office | Nephrology | Isiah Jade MD | | | 2019 | Visit | | [facility] [facility] | | | | | | [address] [place], [place] | | | | | | [address] | | | | | | | [...] will be seen in one week in [place] | | | by ENEDINA Bo. Read [...] | | indicator status. It is a [employer] pacemaker that was | | | placed on 07/30/2010, because of heart block in the context of | | | permanent atrial fibrillation. He has felt poorly over the last few | | | weeks since the device went into an MIRIAN mode. The current lead is | | | a [employer] model 4136, serial #[id number]. The current | | | pacemaker is a [employer] model S601, serial #[id number]. He is | | | anticoagulated and [...] The lead was attached to a new [employer] | | | Accolade MRI compatible model L310, serial #[id number] pacemaker. That | | | device was [...] indicator | | status. It is a [employer] pacemaker that was placed on 07/30/2010, | | because of heart block in the context of permanent atrial fibrillation. He | | has felt poorly over the last few weeks since the device went into an MIRIAN | | mode. The current lead is a [employer] model 4136, serial | | #[id number]. The current pacemaker is a [employer] model S601, serial | | #[id number]. He is anticoagulated and the last dose [...] The lead was attached to a new [employer] | | Accolade MRI compatible model L310, serial #[id number] pacemaker. That device | | was placed [...] seen in one | | week in [place] by ENEDINA Bo. | | | | [...] | | | Fingerstick | performed at [facility];[address] | | LAB | | | | [address];[place] | | | | | | [address] | | | | + + + [...] | | | Basophils | performed at [facility];[address] | [address] | LAB | | | | [address];[place], [place] | | | | | | [address] | | | | + + + [...] | | | | | performed at [facility] | | | | | | [facility];[place], [place] | | | | | | [address] | | | | + + + [...]
--- OUTSIDE RECORDS SUMMARY | ~2019-12-21 | XMS | Encounter Summary ---
Demographics + + + | Address | [address] | | | [place] [address] | + + + | Home Phone [...] [place] | | | | | [address] | | + + + + + | Deanna Lawson | ECON | Unknown | | + + + + + Care Team Providers + +------+ + | Care Graduate Nurse Name | Role | Phone | [...] Provider Unknown | | | | | [place], [place] | [phone] | | | | | [address] | | | | | | [phone] | | | +--------+ + + + [...] [place] | | | | | | [address] | | | | | | | [...] [place] | | | | | | [address] | | | | | | | | +--------+ + + + + documented as of this encounter Visit Diagnoses Not on filedocumented in this encounter"
--- OUTSIDE RECORDS SUMMARY | ~2019-12-21 | XMS | Encounter Summary ---
Demographics + + + | Address | [address] | | | [place] [address] | + + + | Home Phone [...] [place] | | | | | [address] | | + + + + + | Deanna Lawson | ECON | Unknown | | + + + + + Care Team Providers + +------+ + | Care Clinical Program Manager Name | Role | Phone | [...] | Chronic kidney | | | | [place], [place] | [phone] | disease, stage III | | | | [address] | | (moderate) ([facility]); | | | | [phone] | | Chronic diastolic | | | | | | heart failure ([facility]) | +--------+ + + + [...] [place] | | | | | | [address] | | | | | | | | +--------+ + + + + | 02/09/ | Procedure | Cardiology | | | | 2019 | visit | | | | +--------+ + + + + | 03/09/ | Office | Nephrology | Isiah Jade MD | | | 2019 | Visit | | [address] [facility] | | | | | | [address] [place] | | | | | | [address] | | | | | | | [...] | | | | | | (moderate) (HCC) | | + +------+--------+ + + | CBC with | Lab | Routin | Chronic diastolic | Expected: | | Differential | | e | heart failure (HCC) | 12/27/2018, Expires: | | | | | Essential (primary) | 12/27/2019 | | | | | hypertension | | | | | | Chronic kidney | | | | | | disease, stage III | | | | | | (moderate) (HCC) | | + +------+--------+ + + | Protein/Creatinine | Lab | Routin | Chronic diastolic | Expected: | | Ratio, Urine | | e | heart failure ([facility]) | 12/27/2018, Expires: | | | | | Essential (primary) | 12/27/2019 | | | | | hypertension | | | | | | Chronic kidney | | | | | | disease, stage III | | | | | | (moderate) ([facility]) | | + +------+--------+ + + | Urinalysis with | Lab | Routin | Chronic diastolic | Expected: | | Microscopic if | | e | heart failure ([facility]) | 12/27/2018, Expires: | | Indicated | | | Essential (primary) | 12/27/2019 | | | | | hypertension | | | | | | Chronic kidney | | | | | | disease, stage III | | | | | | (moderate) ([facility]) | | + +------+--------+ + + | Uric Acid | Lab | Routin | Chronic diastolic | Expected: | | | | e | heart failure ([facility]) | 12/27/2018, Expires: | | | | | Essential (primary) | 12/27/2019 | | | | | hypertension | | | | | | Chronic kidney | | | | | | disease, stage III | | | | | | (moderate) ([facility]) | | + +------+--------+ + + | Renal Function Panel | Lab | Routin | Chronic kidney | Expected: | | | | e | disease, stage III | 03/21/2019, Expires: | | | | | (moderate) ([facility]) | 08/19/2020 | + +------+--------+ + + | CBC with | Lab | Routin | Chronic kidney | Expected: | | Differential | | e | disease, stage III | 03/21/2019, Expires: | | | | | (moderate) ([facility]) | 08/19/2020 | + +------+--------+ + + | Magnesium | Lab | Routin | Chronic kidney | Expected: | | | | e | disease, stage III | 03/21/2019, Expires: | | | | | (moderate) ([facility]) | 08/19/2020 | + +------+--------+ + + | Uric Acid | Lab | Routin | Chronic kidney | Expected: | | | | e | disease, stage III | 03/21/2019, Expires: | | | | | (moderate) ([facility]) | 08/19/2020 | + +------+--------+ + + | Parathyroid Hormone, | Lab | Routin | Chronic kidney | Expected: | | Intact | | e | disease, stage III | 03/21/2019, Expires: | | | | | (moderate) ([facility]) | 08/19/2020 | + +------+--------+ + + | Protein/Creatinine | Lab | Routin | Chronic kidney | Expected: | | Ratio, Urine | | e | disease, stage III | 03/21/2019, Expires: | | | | | (moderate) ([facility]) | 08/19/2020 | + +------+--------+ [...]
--- OUTSIDE RECORDS SUMMARY | ~2019-12-21 | XMS | Encounter Summary ---
Demographics + + + | Address | [address] | | | [place] [address] | + + + | Home Phone [...] [place] | | | | | [address] | | + + + + + | Deanna Lawson | ECON | Unknown | | + + + + + Care Team Providers + +------+ + | Care Commercial Loan Assistant Name | Role | Phone | [...] [address] | | | | | [place], [place] | [place] [address] | | | | | [address] | [phone] | | | | | [phone] | | | +--------+ + + + [...] [place] | | | | | | [address] | | | | | | | | +--------+ + + + + | 02/09/ | Procedure | Cardiology | | | | 2019 | visit | | | | +--------+ + + + + | 03/09/ | Office | Nephrology | Isiah Jade MD | | | 2019 | Visit | | [address] [facility] [address] | | | | | | [address] [place] | | | | | | [address] | | | | | | | [...] 1.67 cm | | | AR Dec Isabella: 1.62 m/s2 AR Dec Time: 2122.29 ms [...] RV s': | | | 0.10 m/s Release And Technical Records Clerk: PARTHA Authenticated by: Vikki Godoy | | [...] | | cmLVPWd: 0.92 cmLVOT Area: 4.11 [id number] Diam: 2.29 cm%FS: 21.62 %EF(Teich): | | [...] mlLAESV Index (A-L): 58.76 ml/m2LAAs A2C: 25.86 [id number] A-L A2C: 90.57 | | mlLALs A2C: 6.26 cmLAAs A4C: 29.36 [id number] A-L A4C: 115.78 mlLALs A4C: 6.32 | | cmRAAs: 26.92 [id number] A-L: 103.75 mlRAESV MOD: 96.91 mlRALs: 5.92 cmTAPSE: | | 1.67 cmAR Dec Isabella: 1.62 m/s2AR Dec Time: 2121. msAR maxP.71 mmHgAR PHT: | | 615.46 msAR Vmax: 3.45 m/Armen maxP.22 mmHgAV meanP.30 mmHgAV Vmax: 1.24 | | m/Armen Vmean: 0.84 m/Armen VTI: 25.35 cmAVA Vmax: 2.51 cm2AVA (VTI): 2.84 [id number] | | (Vmax): 0.00 cm2/m2AVAI (VTI): 0.00 [...] mmHgTR Vmax: 3.74 m/sRV s': 0.10 m/s Release And Technical Records Clerk: | | DBSAuthenticated by: Vikki [facility] Date/Time: 09-27-2018 20:0:35 IMPRESSION: 1. | [...] | |TAPSE: 1.67 cm | |AR Dec Isabella: 1.62 m/s2 | |AR Dec Time: 2122.29 [...] |RV s': 0.10 m/s | | | |Release And Technical Records Clerk: DBS | |Authenticated by: Vikki Godoy | [...]
--- OUTSIDE RECORDS SUMMARY | ~2019-12-21 | XMS | Encounter Summary ---
Demographics + + + | Address | [address] | | | [place] [address] | + + + | Home Phone | | + + + | Preferred Language | Unknown | + + + | Marital Status | | + + + | Spiritism Affiliation | 1001 | + + + | Race | Unknown | + + + | Ethnic Group | Unknown | + + + Author + + + | Author | [facility] | | | and [place] | + + + | Organization | [facility] | | [...] [place] | | | | | [address] | | + + + + + | Deanna Lawson | ECON | Unknown | | + + + + + Care Team Providers + +------+ + | Care Oracle Soa Consultant Name | Role | Phone | + +------+ + | Barbara Gilman MD | PCP | | + +------+ + Encounter Details +--------+ + + + + | Date | Type | Department | Care Team | Description | +--------+ + + + + | 10/25/ | Orders Only | [facility] | Charlee Oswald | | | 2019 | | CARDIOLOGY ALYX | [address] | | | | | [address] | [address] | | | | | [address] | [place] [address] | | | | | [place] | [phone] | | | | | [address] | | | | | | [phone] | | | +--------+ + + + [...] [place] | | | | | | [address] | | | | | | | [...] [place] | | | | | | [address] | | | | | | | | +--------+ + + + + documented as of this encounter Visit Diagnoses Not on filedocumented in this encounter"
--- OUTSIDE RECORDS SUMMARY | ~2019-12-21 | XMS | Encounter Summary ---
Demographics + + + | Address | [address] | | | [place] [address] | + + + | Home Phone | | + + + | Preferred Language | Unknown | + + + | Marital Status | | + + + | Presybeterian Affiliation | 1001 | + + + | Race | Unknown | + + + | Ethnic Group | Unknown | + + + Author + + + | Author | [facility] | | | and [place] | + + + | Organization | [facility] | | | [...] [place] | | | | | [address] | | + + + + + | Deanan Lawson | ECON | Unknown | | + + + + + Care Team Providers + +------+ + | Care Anatomy And Physiology Instructor Name | Role | Phone | + +------+ + | Barbara Gilman MD | PCP | | + +------+ + Encounter Details +--------+ + + + + | Date | Type | Department | Care Team | Description | +--------+ + + + + | 04/01/ | Orders Only | [facility] | Tristan Rajput, | | | 2018 | | [facility]OLOGY [facility] | ASSISTANT STORE MANAGER [address] | | | | | [address] | [address] | | | | | [address] [facility] [place] | [place] | | | | | [address] | [address] | | | | | [phone] | [phone] | | | | | | | [...] [place] | | | | | | [address] | | | | | | | [...] [place] | | | | | | [address] | | | | | | | [...] | | | LAB | | | GHANAIAN | | | | | + + [...]
--- OUTSIDE RECORDS SUMMARY | ~2019-12-21 | XMS | Encounter Summary ---
Demographics + + + | Address | [address] | | | [place] [address] | + + + | Home Phone | | + + + | Preferred Language | Unknown | + + + | Marital Status | | + + + | Sabianist Affiliation | 1001 | + + + | Race | Unknown | + + + | Ethnic Group | Unknown | + + + Author + + + | Author | [facility] | | | and [place] | + + + | Organization | [facility] | | [...] [place] | | | | | [address] | | + + + + + | Deanna Lawson | ECON | Unknown | | + + + + + Care Team Providers + +------+ + | Care Shotblast Operator Name | Role | Phone | + +------+ + PCP | Unavailable | + +------+ + Encounter Details +--------+ + + + + | Date | Type | Department | Care Team | Description | +--------+ + + + + | 08/29/ | Orders Only | [facility] | Conversion | | | 2018 | | CARDIOLOGY OPHELIA | Transaction, | | | | | [address] | Provider Unknown | | | | | [place], [place] | [phone] | | | | | [address] | | | | | | [phone] | | | +--------+ + + + [...] [place] | | | | | | [address] | | | | | | | | +--------+ + + + + | 02/09/ | Procedure | Cardiology | | | | 2019 | visit | | | | +--------+ + + + + | 03/09/ | Office | Nephrology | Isiah Jade MD | | | 2019 | Visit | | [address] [facility] | | | | | | [address] [place] | | | | | | [address] | | | | | | | [...]
--- OUTSIDE RECORDS SUMMARY | ~2019-12-21 | XMS | Encounter Summary ---
Demographics + + + | Address | [address] | | | [place] [address] | + + + | Home Phone [...] [place] | | | | | [address] | | + + + + + | Deanna Lawson | ECON | Unknown | | + + + + + Care Team Providers + +------+ + | Care Emd Teacher Name | Role | Phone | + +------+ + | Barbara Gilman MD | PCP | | + +------+ + Reason for Visit + + + | Reason | Comments | + + + | Device Check | [place] pacemaker in office device check w/Jay | | (In-office) | | + + + Encounter Details +--------+ + + + + | Date | Type | Department | Care Team | Description | +--------+ + + + + | 05/07/ | Procedure | [facility] | Enoch Thompson, | Cardiac pacemaker in | | 2019 | visit | CARDIOLOGY [place] | MD [address] | situ (Primary Dx); | | | | [address] | [address] [place] | Permanent atrial | | | | [place] | [address] | fibrillation (HCC); | | | | [address] | | Chronic diastolic | | | | [phone] | | heart failure (HCC) | +--------+ [...] | | | | | [address] [place] | | | | | | [address] [...] [place] | | | | | | [address] | | | | | | | [...] | | scheduled encounter for additional details. real estate valuer: Thi Burch RN | | | | | |See device data attached to scheduled encounter for additional | | |details. | | | | | |real estate valuer: Thi Burch RN | | | | [...]
--- OUTSIDE RECORDS SUMMARY | ~2019-12-21 | XMS | Encounter Summary ---
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 | disease, stage III | | | | [address] | | (moderate) ([facility]); | | | | [phone] | | Chronic diastolic | | | | | | heart failure ([facility]) | +--------+ + + + [...] [place] | | | | | | [address] | | | | | | | [...] [place] | | | | | | [address] | | | | | | | [...] Urine | | e | heart failure ([facility]) | 12/27/2018, Expires: | | | | | Essential (primary) | 12/27/2019 | | | | | hypertension | | | | | | Chronic kidney | | | | | | disease, stage III | | | | | | (moderate) ([facility]) | | + +------+--------+ + + | Urinalysis with | Lab | Routin | Chronic diastolic | Expected: | | Microscopic if | | e | heart failure ([facility]) | 12/27/2018, Expires: | | Indicated | | | Essential (primary) | 12/27/2019 | | | | | hypertension | | | | | | Chronic kidney | | | | | | disease, stage III | | | | | | (moderate) ([facility]) | | + +------+--------+ + + | Uric Acid | Lab | Routin | Chronic diastolic | Expected: | | | | e | heart failure ([facility]) | 12/27/2018, Expires: | | | | | Essential (primary) | 12/27/2019 | | | | | hypertension | | | | | | Chronic kidney | | | | | | disease, stage III | | | | | | (moderate) ([facility]) | | + +------+--------+ + + | Renal Function Panel | Lab | Routin | Chronic kidney | Expected: | | | | e | disease, stage III | 03/21/2019, Expires: | | | | | (moderate) ([facility]) | 08/19/2020 | + +------+--------+ + + | CBC with | Lab | Routin | Chronic kidney | Expected: | | Differential | | e | disease, stage III | 03/21/2019, Expires: | | | | | (moderate) ([facility]) | 08/19/2020 | + +------+--------+ + + | Magnesium | Lab | Routin | Chronic kidney | Expected: | | | | e | disease, stage III | 03/21/2019, Expires: | | | | | (moderate) ([facility]) | 08/19/2020 | + +------+--------+ + + | Uric Acid | Lab | Routin | Chronic kidney | Expected: | | | | e | disease, stage III | 03/21/2019, Expires: | | | | | (moderate) ([facility]) | 08/19/2020 | + +------+--------+ + + | Parathyroid Hormone, | Lab | Routin | Chronic kidney | Expected: | | Intact | | e | disease, stage III | 03/21/2019, Expires: | | | | | (moderate) ([facility]) | 08/19/2020 | + +------+--------+ + + | Protein/Creatinine | Lab | Routin | Chronic kidney | Expected: | | Ratio, Urine | | e | disease, stage III | 03/21/2019, Expires: | | | | | (moderate) ([facility]) | 08/19/2020 | + +------+--------+ + [...]
--- OUTSIDE RECORDS SUMMARY | ~2019-12-21 | XMS | Encounter Summary ---
Demographics + + + | Address | [address] | | | [place] [address] | + + + | Home Phone [...] [place] | | | | | [address] | | + + + + + | Deanna Lawson | ECON | Unknown | | + + + + + Care Team Providers + +------+ + | Care Web Communications Specialist Name | Role | Phone | + +------+ + | Barbara Gilman MD | PCP | | + +------+ + Encounter Details +--------+---------+ + + + | Date | Type | Department | Care Team | Description | +--------+---------+ + + + | 05/07/ | Office | [facility] | Enoch Thompson, | Cardiac pacemaker in | | 2019 | Visit | CARDIOLOGY [place] | [address] | situ; Permanent | | | | [address] | [place], [place] | atrial fibrillation | | | | [place], [place] | [address] | (HCC) | | | | [address] | | | | | | [phone] | | | +--------+---------+ + + + [...] pacemaker in situ Overview He has a [employer] Altrua single-chamber RV pacemaker that was [...] function was seen tofrancesca ay for this [employer] single-chamber device. The pacing threshold was [...] mild concentric LVH. He has a single-chamber [employer] ventricular pacemaker that is nearing elective [...] mild concentric LVH. He has a single-chamber [employer] ventricular pacemaker that is nearing elective replacement indicator status. He has been pacing the right ventricle 99% o f the time. Anticoagulated with apixaban. He has only been taking 2.5 mg twice per day, because of cierra al dysfunction and age. The chads 2 vascular score is 4. 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 Priority: High Note Last Updated: 05/07/2019 He has a [employer] Altrua single-chamber RV pacemaker that was [...] function was seen tofrancesca marcus for this [employer] single-chamber device. The pacing threshold was [...] arora. Type 2 diabetes mellitus without complication ([facility]) 06/04/2015 Reading: Continue current therapy. [...] notes on file Myrtle Esteves Me dical Industrial Controller - 05/07/2019 11:30 AM Sheela COOPER Note- Electrophysiology Patient ID: Andres Guzmná is a 88 y.o. male. Review of [...] [place] | | | | | | [address] | | | | | | | [...] [place] | | | | | | [address] | | | | | | | | +--------+ + + + + documented as of this encounter Visit Diagnoses + + | Diagnosis | + + | Cardiac pacemaker in situ | + + | Permanent atrial fibrillation (HCC) Atrial fibrillation | + + documented in this encounter
--- OUTSIDE RECORDS SUMMARY | ~2019-12-21 | XMS | Encounter Summary ---
Demographics + + + | Address | [address] | | | [place] [address] | + + + | Home Phone [...] [place] | | | | | [address] | | + + + + + | Deanna Lawson | ECON | Unknown | | + + + + + Care Team Providers + +------+ + | Care Global Cto Name | Role | Phone | + +------+ + | Barbara Gilman MD | PCP | | + +------+ + Encounter Details +--------+ + + + + | Date | Type | Department | Care Team | Description | +--------+ + + + + | 09/02/ | Orders Only | [facility] | Enoch Thompson, | | | 2019 | | CARDIOLOGY [place] | [address] | | | | | [address] | [place], [place] | | | | | [place], [place] | [address] | | | | | [address] | | | | | | [phone] | | | +--------+ + + + [...] [place] | | | | | | [address] | | | | | | | [...] [place] | | | | | | [address] | | | | | | | | +--------+ + + + + documented as of this encounter Visit Diagnoses Not on filedocumented in this encounter"
--- OUTSIDE RECORDS SUMMARY | ~2019-12-21 | XMS | Encounter Summary ---
Demographics + + + | Address | [address] | | | [place] [address] | + + + | Home Phone [...] [place] | | | | | [address] | | + + + + + | Deanna Lawson | ECON | Unknown | | + + + + + Care Team Providers + +------+ + | Care Train Crew Member Name | Role | Phone | + +------+ + | Barbara Gilman MD | PCP | | + +------+ + Encounter Details +--------+ + + + + | Date | Type | Department | Care Team | Description | +--------+ + + + + | 06/25/ | Orders Only | [facility] | Charlee Oswald | | | 2018 | | CARDIOLOGY [place] | [address] | | | | | [address] | [address] | | | | | [address] | [place] [address] | | | | | [place] | [phone] | | | | | [address] | | | | | | [phone] | | | +--------+ + + + [...] [place] | | | | | | [address] | | | | | | | [...] [place] | | | | | | [address] | | | | | | | | +--------+ + + + + documented as of this encounter Visit Diagnoses Not on filedocumented in this encounter"
--- OUTSIDE RECORDS SUMMARY | ~2019-12-21 | XMS | Encounter Summary ---
Demographics + + + | Address | [address] | | | [place] [address] | + + + | Home Phone [...] [place] | | | | | [address] | | + + + + + | Deanna Lawson | ECON | Unknown | | + + + + + Care Team Providers + +------+ + | Care Due Diligence Coordinator Name | Role | Phone | + +------+ + PCP | Unavailable | + +------+ + Encounter Details +--------+ + + + + | Date | Type | Department | Care Team | Description | +--------+ + + + + | 02/04/ | Hospital | [facility] | Conversion | Presence of cardiac | | 2019 | Encounter | CENTER CV INTRA OP | Transaction, | pacemaker; Permanent | | | | [address] | Provider Unknown | atrial fibrillation | | | | [place], [place] | [phone] | (HCC); Chronic | | | | [address]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 | | | | [phone] | Enoch Marks MD | failure ([facility]); | | | | | [address] | Pacemaker at end of | | | | | [place], [place] | battery life | | | | | [address] | | | | | | | [...] Note by Sendy Smith RN at 02/04/19 9659 Author: Sendy Smith RN Service: General Surgery Author Type: Registered Nurse Filed: 02/04/19 1864 Date of Service: 02/04/191429 Status: Signed Board Filler: Sendy Smith RN (Registered Nurse) Patient discharged [...] | | | | | [place], [place] | | | | | | [phone] | | | | | | | [...] | | | | | | [address] [place], [place] | | | | | | [address] | | | | | | | [...] will be seen in one week in [place] | | | by ENEDINA Bo. Read [...] | | indicator status. It is a [employer] pacemaker that was | | | placed on 07/30/2010, because of heart block in the context of | | | permanent atrial fibrillation. He has felt poorly over the last few | | | weeks since the device went into an MIRIAN mode. The current lead is | | | a [employer] model 4136, serial #[id number]. The current | | | pacemaker is a [employer] model S601, serial #[id number]. He is | | | anticoagulated and [...] The lead was attached to a new [employer] | | | Accolade MRI compatible model L310, serial #[id number] pacemaker. That | | | device was [...] indicator | | status. It is a [employer] pacemaker that was placed on 07/30/2010, | | because of heart block in the context of permanent atrial fibrillation. He | | has felt poorly over the last few weeks since the device went into an MIRIAN | | mode. The current lead is a [employer] model 4136, serial | | #[id number]. The current pacemaker is a [employer] model S601, serial | | #[id number]. He is anticoagulated and the last dose [...] The lead was attached to a new [employer] | | Accolade MRI compatible model L310, serial #[id number] pacemaker. That device | | was placed [...] seen in one | | week in [place] by ENEDINA Bo. | | | | [...] | | | Fingerstick | performed at [facility];[address] | | LAB | | | | [address];[place] | | | | | | [address] | | | | + + + [...] | | | Basophils | performed at [facility];[address] | [address] | LAB | | | | [address];[place], [place] | | | | | | [address] | | | | + + + [...] | | | | | performed at [facility] | | | | | | [facility];[place], [place] | | | | | | [address] | | | | + + + [...]
--- OUTSIDE RECORDS SUMMARY | ~2019-12-21 | XMS | Encounter Summary ---
Demographics + + + | Address | [address] | | | [place] [address] | + + + | Home Phone [...] [place] | | | | | [address] | | + + + + + | Deanna Lawson | ECON | Unknown | | + + + + + Care Team Providers + +------+ + | Care Manager Transfusion Name | Role | Phone | + +------+ + | Barbara Gilman MD | PCP | | + +------+ + Encounter Details +--------+ + + + + | Date | Type | Department | Care Team | Description | +--------+ + + + + | 10/25/ | Orders Only | [facility] | Charlee Oswald | | | 2019 | | CARDIOLOGY [place] | [address] | | | | | [address] | [address] | | | | | [address] | [place] [address] | | | | | [place] | [phone] | | | | | [address] | | | | | | [phone] | | | +--------+ + + + [...] [place] | | | | | | [address] | | | | | | | [...] [place] | | | | | | [address] | | | | | | | | +--------+ + + + + documented as of this encounter Visit Diagnoses Not on filedocumented in this encounter"
--- OUTSIDE RECORDS SUMMARY | ~2019-12-21 | XMS | Encounter Summary ---
Demographics + + + | Address | [address] | | | [place] [address] | + + + | Home Phone [...] [place] | | | | | [address] | | + + + + + | Deanna Lawson | ECON | Unknown | | + + + + + Care Team Providers + +------+ + | Care Ruby On Rails Engineer Name | Role | Phone | [...] + + | 08/12/ | Procedure | [facility] | | Cardiac pacemaker in | | 2019 | visit | CARDIOLOGY [place] | | situ (Primary Dx) | | | | [address] | | | | | | [place] | | | | | | [address] | | | | | | [phone] | | | +--------+ + + + [...] | | | | | [address] [place], [place] | | | | | | [address] | | | | | | | [...] | | | | | | [address] [place], [place] | | | | | | [address] | | | | | | | [...] Mercedez Jensen | LUCA | | Herson Butter Wrapper 08/12/2019 4:09 [facility] [place] [facility] | | | INTERROGATION REPORT Name: Andres Guzmán PCP: Barbara Elkins | | | MD Mukul : 1930MRN: [id number] Primary cardiology | | | provider: Charlee Oswald Primary electrophysiology provider: Enoch | | | Jay Device general i farmworker: [employer] Device type: Single | | | chamber [...]
--- OUTSIDE RECORDS SUMMARY | ~2019-12-21 | XMS | Encounter Summary ---
Demographics + + + | Address | [address] | | | [place] [address] | + + + | Home Phone [...] [place] | | | | | [address] | | + + + + + | Deanna Lawson | ECON | Unknown | | + + + + + Care Team Providers + +------+ + | Care System Software Developer Name | Role | Phone [...] | | | | | atrial | SENIOR BUSINESS DEVELOPMENT ANALYST [address] | | | | | | fibrillation | [address] | | | | | | (HCC) | [place] | | | | | | Presence of | [place] | | | | | | cardiac | [address] | | | | | | pacemaker | Phone: | | | | | | Chronic | [phone] | | | | | | diastolic | Fax: | | | | | | heart | [phone] | | | | | | failure [...] + + | 06/27/ | Office | [facility] | Charlee Oswald | 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) | | | | [address] | [address] | (Primary Dx); | | | | [address] | [place] [address] | Cardiac pacemaker in | | | | [place], [place] | [phone] | situ; Chronic | | | | [address]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 | | | | [phone] | | failure (HCC); | | | [...] reported by him as being negative His DLF5NI2- VASC score is 6( HTN, age, stroke, [...] function until he followed up with nephrology SEAT JOINER CHAINSTITCHSantana Rajput on 04/05/2019, and told him to avoid dehydration and working outside in the [facility] heat. He reports today that he did [...] to feel considerably improved since his generator Locally, as he had felt quite symptomatic when [...] recreational or illicit drug use. Exercises with [employer] and [employer] work, tolerates without chest pain or dyspnea. 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 Thompson) : new [employer] Accolade MRI com patible model L310, serial #[id number] pacemaker. The current lead is a [employer] model 4136, serial #[id number].Mode for pacing, VVIR with dual-sensor technology programmed on. T he lower rate will be 60 and upper rate 120beats per minute. The output will be 2 volts at 0.4 milliseconds with sensitivity of 2.5 millivolts. Pacing and sensing will be bipolar Previous Implant Pacemaker/ICD: 07/30/2010, BS Altrajinder S601, SN: [id number]. [facility]. Last pacer interrogation: 05/07/2019: ( Dr. Thompson) : Normal device function was seen today f or this [employer] single-chamber device. The pacing threshold was [...] change, except less pul monary hypertension Echo:07/26/2017: [facility]: EF >70 percent. LV normal [...] PHS 75,TOTAL BILI 0.6,ALB 3.9 Labs: 02/18/2018: ([facility]). CBC: WBC 6.2, RBC [...] 08/23/2018: ( [facility]): CBC: WBC 6.6, RBC 2.92, [...] He had a recent clinic visit with sider Dr. Thompson, and pacemaker has stable d [...] . His echo will be performed at [facility] in September, and I will follow-up with [...] contain inadvertent rec ognition errors. 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
--- OUTSIDE RECORDS SUMMARY | ~2019-12-21 | XMS | Encounter Summary ---
Demographics + + + | Address | [address] | | | [place] [address] | + + + | Home Phone [...] [place] | | | | | [address] | | + + + + + | Deanna Lawson | ECON | Unknown | | + + + + + Care Team Providers + +------+ + | Care Community Specialist Name | Role | Phone | [...] + | 12/01/ | Telephone | [facility] | Charlee Oswald | Testing | | 2020 | | CARDIOLOGY [place] | [address] | | | | | [address] | [address] | | | | | [address] | [place] [address] | | | | | [place], [place] | [phone] | | | | | [address] | | | | | | [phone] | | | +--------+ + + + [...] [place] | | | | | | [address] | | | | | | | [...] [place] | | | | | | [address] | | | | | | | [...]
--- OUTSIDE RECORDS SUMMARY | ~2019-12-21 | XMS | Encounter Summary ---
Demographics + + + | Address | [address] | | | [place] [address] | + + + | Home Phone [...] [place] | | | | | [address] | | + + + + + | Deanna Lawson | ECON | Unknown | | + + + + + Care Team Providers + +------+ + | Care Glass Lathe Operator Name | Role | Phone | [...] + + | 11/10/ | Procedure | [facility] | | Cardiac pacemaker in | | 2019 | visit | CARDIOLOGY [place] | | situ (Primary Dx) | | | | [address] | | | | | | [place] | | | | | | [address] | | | | | | [phone] | | | +--------+ + + + [...] | | | | | [address] [place], [place] | | | | | | [address] | | | | | | | | +--------+ + + + + | 02/09/ | Procedure | Cardiology | | | | 2019 | visit | | | | +--------+ + + + + | 03/09/ | Office | Nephrology | Isiah Jade MD | | | 2019 | Visit | | [address] [facility] | | | | | | [address] [place], [place] | | | | | | [address] | | | | | | | [...] Mercedez Jensen | LUCA | | Herson, Peg Driver 11/12/2019 4:50 [facility] REMOTE | | | INTERROGATION REPORT Name: Andres Guzmán PCP: Barbara Elkins | | | MD Mukul : 1930MRN: [id number] Primary cardiology | | | provider: Charlee Oswald Primary electrophysiology provider: Enoch | | | Jay Device web engineer: [employer] Device type: Single | | | chamber [...]
--- OUTSIDE RECORDS SUMMARY | ~2019-12-21 | XMS | Encounter Summary ---
Demographics + + + | Address | [address] | | | [place] [address] | + + + | Home Phone [...] [place] | | | | | [address] | | + + + + + | Deanna Lawson | ECON | Unknown | | + + + + + Care Team Providers + +------+ + | Care Facilities Maintenance Engineer Name | Role | Phone | [...] | | | 2019 | | CARDIOLOGY [place] | [address] | | | | | [address] | [place], [place] | | | | | [place], [place] | [address] | | | | | [address] | | | | | | [phone] | | | +--------+ + + + [...] [place] | | | | | | [address] | | | | | | | [...] [place] | | | | | | [address] | | | | | | | | +--------+ + + + + documented as of this encounter Visit Diagnoses Not on filedocumented in this encounter"
--- OUTSIDE RECORDS SUMMARY | ~2019-12-21 | XMS | Clinical Summary ---
Demographics + + + | Address | [address] | | | [place] [address] | + + + | Home Phone | | + + + | Preferred Language | Unknown | + + + | Marital Status | | + + + | Mu-Ism Affiliation | 1001 | + + + | Race | Unknown | + + + | Ethnic Group | Unknown | + + + Author + + + | Author | [facility] (Historical as of | | | 04-06-19) | + + + | Organization | [facility] (Historical as of | | | 04-06-19) [...] [place] | | | | | [address] | | + + + + + | Deanna Lawson | ECON | Unknown | | + + + + + Care Team Providers + +------+ + | Care Painter Foreman Name | Role | Phone | + [...] mild concentric LVH. He has a single-chamber [employer] | | Scientific ventricular pacemaker that is [...] | Pacemaker/ICD: 07/30/2010, SYDNEE Kinsey S601, SN: [id number].Last Cath: | | naLast Echo, 06/10/2015: LV [...] + + | Overview: He has a [employer] Alt[employer]a single-chamber | | RV pacemaker that [...] | | 07/30/2010, SYDNEE Kinsey S601, SN: [id number].[facility]. | + + + + [...] + | Father | | | [place], [place] | | | | (Age | | [...] + + | Sister | | | [place] | | | | (Age | | [...] | c | | | | | /[id number] | | Enoch Thompson MD | Rhythm [...] +------+-------+ + | MEDICARE | MEDICA | [id number] | | | [address] | | | RE | | | | [place] [address] | | | IP-OP | | | | | + +--------+ +------+-------+ + | COMMERCIAL OTHER | COMMER | [id number] | | | | | | CIAL [...] | 05/19/ | Home: | [address] | | [place] | al/Amrik | | 1930 | [phone] | [place] | | | quique | | | [phone] | [address] | + +--------+ +--------+ + +
--- OUTSIDE RECORDS SUMMARY | ~2019-12-21 | XMS | Encounter Summary ---
Demographics + + + | Address | [address] | | | [place] [address] | + + + | Home Phone [...] [place] | | | | | [address] | | + + + + + | Deanna Lawson | ECON | Unknown | | + + + + + Care Team Providers + +------+ + | Care Brick Wheeler Name | Role | Phone | + [...] [address] | | | | | [place], [place] | [place] [address] | | | | | [address] | [phone] | | | | | [phone] | | | +--------+ + + + [...] [place] | | | | | | [address] | | | | | | | | +--------+ + + + + | 02/09/ | Procedure | Cardiology | | | | 2019 | visit | | | | +--------+ + + + + | 03/09/ | Office | Nephrology | Isiah Jade MD | | | 2019 | Visit | | [address] [facility] [address] | | | | | | [address] [place] | | | | | | [address] | | | | | | | [...] 1.67 cm | | | [place]: 1.62 m/s2 [place] Dec Time: 2122.29 ms [...] RV s': | | | 0.10 m/s Combination Machine Tender: PARTHA Authenticated by: Vikki Godoy | | [...] | | cmLVPWd: 0.92 cmLVOT Area: 4.11 [id number] Diam: 2.29 cm%FS: 21.62 %EF(Teich): | | [...] mlLAESV Index (A-L): 58.76 ml/m2LAAs A2C: 25.86 tr3MDRQS A-L A2C: 90.57 | | mlLALs A2C: 6.26 cmLAAs A4C: 29.36 cq5RBPQK A-L A4C: 115.78 mlLALs A4C: 6.32 | | cmRAAs: 26.92 [id number] A-L: 103.75 mlRAESV MOD: 96.91 mlRALs: 5.92 cmTAPSE: | | 1.[address] [place]: 1.62 m/s2AR Dec Time: 2121. msAR maxP.71 mmHgAR PHT: | | 615.46 msAR Vmax: 3.45 m/Armen maxP.22 mmHgAV meanP.30 mmHgAV Vmax: 1.24 | | m/Armen Vmean: 0.84 m/Armen VTI: 25.35 cmAVA Vmax: 2.51 cm2AVA (VTI): 2.84 ij5PJSA | | (Vmax): 0.00 cm2/m2AVAI (VTI): 0.00 [...] mmHgTR Vmax: 3.74 m/sRV s': 0.10 m/s Combination Machine Tender: | | DBSAuthenticated by: Vikki [facility] Date/Time: 09-27-2018 20:0:35 IMPRESSION: 1. [...] | |TAPSE: 1.67 cm | |[place] Dec [place]: 1.62 m/s2 | |AR Dec Time: 2122.29 [...] |RV s': 0.10 m/s | | | |Combination Machine Tender: DBS | |Authenticated by: Vikki Godoy | [...]
--- OUTSIDE RECORDS SUMMARY | ~2019-12-21 | XMS | Encounter Summary ---
Demographics + + + | Address | [address] | | | [place] [address] | + + + | Home Phone [...] [place] | | | | | [address] | | + + + + + | Deanna Lawson | ECON | Unknown | | + + + + + Care Team Providers + +------+ + | Care Coal Carrier Name | Role | Phone | + +------+ + PCP | Unavailable | + +------+ + Encounter Details +--------+ + + + + | Date | Type | Department | Care Team | Description | +--------+ + + + + | 07/25/ | Hospital | [facility] | Yoli Harding MD | Dyspnea, unspecified | | 2017 - | Encounter | [facility] | [address] | type; Fatigue, | | | | CARE FLOOR [address] | [place] [address] | unspecified type; | | 07/29/ | | [address] | [phone] | Altered mental | | 2016 | | [place], [place] | | status, unspecified | | | | [address] | | altered mental | | | | [phone] | | status type; | | | [...] Date of Service: 07/29/17 1003 Status: Signed Metalworking Specialist: Gutierrez Lopez MD (Physician) [facility]: Hospitalist Discharge Summary Date of Admission: [...] with congestive heart failure clinic, arranged by briefcase sewer and outpatient sharon metzger. Past Medical History [...] Take 500 mg by mouth daily. 07/24/2017@0700 Fzqvhcs-Krxfkceyz-Fwpvyiv D 600-40-500 MG-MG-UNIT TB24 Take 1,200 mg [...] Take 1 tablet by mouth daily. 2016@00 [place] 3 1000 MG CAPS Take 1 capsule [...] As indicated below and as discussed by briefcase sewer's at Bedside. Disposition: Home Condition: Stable Code Status: Full Code Discharge Instructions Diet Cardiac Diet Low Sodium Activity as Tolerated Follow up: ENEDINA Dickerson [address] [facility] [address] Go on 07/31/2017 Hospital Follow Up Guided Patient Services Guided Patient Services GPS Plant Maintenance Engineer- JIAN [place] [phone] Mon-Mon 7:30 AM 4:00 PM Call for any questions or concerns after your discharge home, or for help making follow up appointments. Charlee Chauhan ENEDINA Oswald [address] [place] [address] On 08/08/2017 Post-Hopsital discharge Follow-up. Medication List [...] Refills: 0 Commonly known as: VITAMIN C Wnnuxig-Amfstdtpn-Pdymekk D 600-40-500 MG-MG-UNIT Tb24 Refills: 0 glipiZIDE [...] (none) Author Type: Registered Nurse Filed: 07/29/17 0170 Date of Service: 07/29/175 Status: Signed Metalworking Specialist: Valeria Martinez RN (Registered Nurse) Patient discharged home via private vehicle with family. Heart failure education completed, all discharge instructions discussed. Patient has heart failure education packet and paper prescriptions in possession. All questions answered, all patient belongings with family. Pat ient wheeled out with PROOF PRESS OPERATOR, all vital signs stable upon discharge. VALERIA MARTINEZ RN onver jose a Transaction, Provider Unknown - 07/28/2017 3:18 PM PST Progress Notes by Carina Quintero CMA at 07/28/17 1028 Author: Carina Quintero CMA Service: (none) Author Type: Financial Sales Consultant Filed: 07/28/17 1519 Date of Service: 07/28/171517 Status: Signed Metalworking Specialist: Carina Quintero CMA (Financial Sales Consultant) GPS- Patient enrolled. Scheduled to see Charlee Chauhan on 08/08 and PCP on 07/31 onver jose a Transaction, Provider Unknown - 07/28/2017 2:43 PM PST Case Management by Yousuf Mcfadden RN at 07/28/17 5140 Author: Yousuf Mcfadden RN Service: (none) Author Type: Registered Nurse Filed: 07/28/17 1584 Date of Service: 07/28/17 128 Status: Signed Metalworking Specialist: Yousuf W Hair, RN (Registered Nurse) I met with patient in rounds, he is enrolled in the CHF program through [facility] a nd has follow up schedule with his cardiologists. utierrez Peter MD - 07/28/2017 6:56 AM PST Progress Notes by Gutierrez Lopez MD at 07/28/17 0656 Author: Gutierrez Lopez MD Service: Hospitalist Author Type: Physician Filed: 07/28/17 1342 Date of Service: 07/28/1756 Status: Signed Metalworking Specialist: Gutierrez Lopez MD (Physician) [facility]: Hospitalist Progress Note Hospital Day: LOS: [...] 07/28/17617 Date of Service: 07/28/17612 Status: Signed Metalworking Specialist: Stacey Ley RN (Registered Nurse) Patient [...] Date of Service: 07/27/17 1015 Status: Signed Metalworking Specialist: Gutierrez Lopez MD (Physician) [facility]: Hospitalist Progress Note Hospital Day: LOS: [...] (none) Author Type: Registered Nurse Filed: 07/26/17 1438 Date of Service: 07/26/17 143 Status: Signed Metalworking Specialist: Yousuf Mcfadden RN (Registered Nurse) 07/26/17 1432 Discharge Planning Evaluation Admitting Diagnosis CHF Readmission No Living Arrangements Spouse/significant other Support Systems Spouse/significant other;Children Type of Residence Private residence Independent with ADL's Yes Independent with Mobility Yes Mental Status Oriented Resources Financial concerns No Transportation issues No Patient/Family concerns No Prescription Plan Yes Name of Pharmacy [facility] Previous home health equipment No Vascular access device No Anticipated Disposition Facility Type Home Met with Desiree and discussed discharge planning, Pt is a 87 y.o., male who is independent an d lives with his in [place]. He goes to the [facility] for his coumadin checks an d doesn't use any DME. Desiree denies having needs for discharge. Patient's PCP is:Janie Beltrán Patient's insurance:Medicare and [employer] Coverage concerns: none Medication coverage/concerns: yes/no Community [...] 1341 Date of Service: 07/26/17808 Status: Signed Metalworking Specialist: Nathen Coughlin MD (Physician) [facility]: Hospitalist Progress Note Pt: Desiree Mcconnell AGE/SEX: 87 y.o. male ROOM: [facility]710-1 : 1930 PCP: JANIE FITZGERALD ADMIT DATE: [...] and managing patient and counseling/coordination. Dictation software, Nveloped, used which may contain error for similar [...] 07/25/171950 Date of Service: 07/25/171946 Status: Signed Metalworking Specialist: Demond Sandy () Visit per pt [...] 07/25/171448 Date of Service: 07/25/171448 Status: Signed Metalworking Specialist: Renuka Reno RPH (Pharmacist) Renal Dosing [...] [place] | | | | | | [address] | | | | | | | [...] [place] | | | | | | [address] | | | | | | | [...] | | | Fingerstick | performed at [facility];[address] | | LAB | | | | [address];[place], [place] | | | | | | [address] | | | | + + + [...] | | | Fingerstick | performed at [facility];[address] | | LAB | | | [address];[place], [place] | | | | | | [address] | | | | + + + [...] | | | Fingerstick | performed at [facility];[address] | | LAB | | | | [address];[place] | | | | | | [address] | | | | + + + [...] at [facility] | | | | | | [facility];[place], [place] | | | | | | [address] | | | | + + + [...] | | | Basophils | performed at [facility], [address] | K/uL | LAB | | | | [address], | | | | | | [place] [address] | | | | + + + [...] | | | | | [place] [address] | | | | + + + [...] [address], | | | | | | [place] [address] | | | | + + + [...] | | | Fingerstick | performed at [facility];[address] | | LAB | | | | [address];[place] | | | | | | [address] | | | | + + + [...] | | | Fingerstick | performed at [facility];[address] | | LAB | | | | [address];[place], [place] | | | | | | [address] | | | | + + + [...] | | | Fingerstick | performed at [facility];[address] | | LAB | | | | [address];[place] | | | | | | [address] | | | | + + + [...] RECEIVEDAbnormal | | | Testing performed at [facility];[address] [place] [address];[place] [address] | | + + + + +---------+ [...] | | | Fingerstick | performed at [facility];[address] | | LAB | | | | [address];[place] | | | | | | [address] | | | | + + + [...] [place];[address] | | | | | | [facility];[place], [place] | | | | | | [address] | | | | + + + [...] | | | Basophils | performed at [facility], [address] | K/uL | LAB | | | | [address], | | | | | | [place] [address] | | | | + + + [...] [address], | | | | | | [place] [address] | | | | + + + [...] | | | Fingerstick | performed at [facility];[address] | | LAB | | | | [address];[place] | | | | | | [address] | | | | + + + [...] | | | Fingerstick | performed at [facility];[address] | | LAB | | | | [address];[place] | | | | | | [address] [...] | | | Urine | performed at [facility], [address] | | | | | | [address], | | | | | | [place] [address] | | | | + + + [...] LAB | | | | performed at [facility], [address] | | | | | | [address], | | | | | | [place] [address] | | | | + + + [...] | | | Fingerstick | performed at [facility];[address] | | LAB | | | | [address];[place] | | | | | | [address] | | | | + + + [...] | | | Fingerstick | performed at [facility];[address] | | LAB | | | | [address];[place], [place] | | | | | | [address] | | | | + + + [...] | | | | | [place] [address] | | | | + + + [...] [place];[address] | | | | | | [facility];[place], [place] | | | | | | [address] | | | | + + + [...] | | | Reticulocyt | performed at [facility], [address] | | LAB | | | e Count | [address], | | | | | | [place] [address] | | | | + + + [...] | | | Basophils | performed at [facility], [address] | K/uL | LAB | | | | [address], | | | | | | [place] [address] | | | | + + + [...] | | | External | performed at [facility], [address] | | LAB | | | | [address], | | | | | | [place] [address] | | | | + + + [...] | | | | | | at [facility], [address] | | | | | | [address], | | | | | | [place] [address] | | | | + + + [...] | | | Fingerstick | performed at [facility];[address] | | LAB | | | | [address];[place], [place] | | | | | | [address] | | | | + + + [...] | | | Fingerstick | performed at [facility];[address] | | LAB | | | | [address];[place] | | | | | | [address] | | | | + + + [...] | | | Fingerstick | performed at [facility];[address] | | LAB | | | | [address];[place], [place] | | | | | | [address] | | | | + + + [...] aortic stenosis. | | | Mitral Valve: Tqid-qi-bmevdvub mitral regurgitation is present. | | | [...] 1.88 cm AR Dec | | | [facility]: 2.33 m/s2 AR Dec Time: 1398.10 ms [...] TV A Good: 0.32 m/s TV Dec [facility]: 2.31 m/s2 | | | TV Dec Time: 215.03 ms TV E Good: 0.49 m/s TV E/A Ratio: | | | 1.53 Eradicator: DOMITILA Authenticated by: JENNIFER SWAIN MD | | | Report Date/Time: -- [id number] | | + + + + + [...] evidence of aortic stenosis.Mitral Valve: | | Losc-yu-vxeixtld mitral regurgitation is present.Mitral Valve: Mild mitral [...] BPMR-R: 973.47 msLAESV(A-L): 99.35 mlLAAs A2C: 27.25 pd7BFZMY A-L A2C: 99.85 | | mlLAESV MOD A2C: 93.96 mlLALs A2C: 6.31 cmLAAs A4C: 26.56 pb3DCTCX A-L A4C: | | 96.85 mlLAESV MOD A4C: 88.08 mlLALs A4C: 6.18 cmTAPSE: 1.[address] [place]: 2.33 | | m/s2AR Dec Time: 1398.10 msAR maxP.73 mmHgAR PHT: 405.45 msAR Vmax: 3.26 | | m/sHR: 64.46 BPMAV maxP.44 mmHgAV meanP.16 mmHgAV Vmax: 1.36 m/Armen | | Vmean: 0.98 m/Armen VTI: 29.20 cmAVA Vmax: 2.97 cm2AVA (VTI): 2.95 nv3AUSE Dopp: | | 5.01 l/minHR: 58.18 BPMLVOT [...] A | | Good: 0.32 m/sTV Dec [facility]: 2.31 m/s2TV Dec Time: 215.03 msTV E Good: 0.49 m/sTV | | E/A Ratio: 1.53 Eradicator: DOMITILAAuthenticated by: JENNIFER Ward | | Date/Time: -- [id number] IMPRESSION: 1. Left ventricular systolic function is [...] | |TAPSE: 1.88 cm | |AR Dec [facility]: 2.33 m/s2 | |AR Dec Time: 1398.10 [...] A Good: 0.32 m/s | |TV Dec [facility]: 2.31 m/s2 | |TV Dec Time: 215.03 ms | |TV E Good: 0.49 m/s | |TV E/A Ratio: 1.53 | | | |Eradicator: GD | |Authenticated by: JENNIFER SWAIN MD | |Report Date/Time: -- [id number]:27 | | | |IMPRESSION: | |1. Left [...] | | | Fingerstick | performed at [facility];[address] | | LAB | | | | [address];[place] | | | | | | [address] | | | | + + + [...] [place];[address] | | | | | | [address];[place], [place] | | | | | | [address] | | | | + + + [...] | | | Basophils | performed at [facility], [address] | K/uL | LAB | | | | [address], | | | | | | [place] [address] | | | | + + + [...] EXTERNAL | | | | performed at [facility], [address] | uIU/mL | LAB | | | | [address], | | | | | | [place] [address] | | | | + + + [...] EXTERNAL | | | | performed at [facility], [address] | | LAB | | | | [facility], | | | | | | [place] [address] | | | | + + + [...] EXTERNAL | | | | performed at [facility];[address] | | LAB | | | | [address];[place] | | | | | | [address] | | | | + + + [...] EXTERNAL | | | | performed at [facility], [address] | | LAB | | | | [address], | | | | | | [place] [address] | | | | + + + [...] + + | Hemoglobin | 5.5Comment: The [place] | 4.0 - 6.0 % | EXTERNAL [...] | | | | | performed at [facility], [address] | | | | | | [address], | | | | | | [place] [address] | | | | + + + [...] | | | | | | at [facility], [address] | | | | | | [facility], | | | | | | [place] [address] | | | | + + + [...] | | | | | | ACUTE CO Testing | | | | | | performed at [facility];[address] | | | | | | [address];[place], [place] | | | | | | [address] | | | | + + + [...] | | | Fingerstick | performed at [facility];[address] | | LAB | | | | [address];[place], [place] | | | | | | [address] | | | | + + + [...] | | | | | | ACUTE CO Testing | | | | | | performed at [facility];[address] | | | | | | [address];[place], [place] | | | | | | [address] | | | | + + + [...] | | | Fingerstick | performed at [facility];[address] | | LAB | | | | [address];[place], [place] | | | | | | [address] | | | | + + + [...] - 04/03/2019 7:51 PM PDT DESIREE Kilpatrick EICHHOLZ[birth year] years MaleXR | | CHEST 2 VIEW FRONTAL AND YDIBSIE09/5/2017 11:18 AM INDICATION: Shortness of breath | [...] | | | | | | ACUTE CO Testing | | | | | | performed at [facility];[address] | | | | | | [facility];[place], [place] | | | | | | [address] | | | | + + + [...] EXTERNAL | | | | performed at [facility] | | LAB | | | | [facility];[place], [place] | | | | | | [address] | | | | + + + [...] | Performed by ED provider. Hemoccult quality manager Passed. | | + + [...] (500), | | | | | | video effects editor ART BROWN (2) | | | [...]
--- OUTSIDE RECORDS SUMMARY | ~2019-12-21 | XMS | Encounter Summary ---
Demographics + + + | Address | [address] | | | [place] [address] | + + + | Home Phone [...] [place] | | | | | [address] | | + + + + + | Deanna Lawson | ECON | Unknown | | + + + + + Care Team Providers + +------+ + | Care Waste Oil Pumper Name | Role | Phone | + +------+ + PCP | Unavailable | + +------+ + Encounter Details +--------+ + + + + | Date | Type | Department | Care Team | Description | +--------+ + + + + | 07/28/ | Hospital | [facility] | Robe Prasad | | | 2009 - | Encounter | [facility] | MD Brendan [address] | | | | | CARE FLO[address] | [address] [place] [address] | | | 07/31/ | [address] | [place] [address] | | | 2009 | | [place], [place] | [phone] | | | | | [address] | | | | | | [phone] | | | +--------+ + + + [...] [place] | | | | | | [address] | | | | | | | | +--------+ + + + + | 02/09/ | Procedure | Cardiology | | | | 2019 | visit | | | | +--------+ + + + + | 03/09/ | Office | Nephrology | Isiah Jade MD | | | 2019 | Visit | | [address] [facility] | | | | | | [address] [place] | | | | | | [address] | | | | | | | [...] | | | The pacemaker is a [employer] Altrua 60, model S601. Serial | | | number is [id number]. The electrode is a Guidant Kona Medicalrus electrode model | | | number 4136, length 50 cm. Serial number is [id number]. PACING AND | | | SENSING PARAMETERS [...] DT: | | | 08/11/2010 07:18 A NIDA/arline/[id number]/ Read by TODD HARDEN DO | | [...] DATA | | The pacemaker is a [employer] Altrua 60, model S601. Serial | | number is [id number]. | | The electrode is a Guidant Dextrus electrode model number 4136, length | | 50 cm. Serial number is [id number]. | | | | PACING AND SENSING [...] | P | | A | | NIDA/arline/[id number]/ | | | | Read by | | TODD HARDEN DO 08/10/2010 09:46 P | | | | | + + documented in this encounter Visit Diagnoses Not on filedocumented in this encounter"
--- OUTSIDE RECORDS SUMMARY | ~2019-12-21 | XMS | Clinical Summary ---
Demographics + + + | Address | [address] | | | [place] [address] | + + + | Home Phone [...] [place] | | | | | [address] | | + + + + + | Deanna Lawson | ECON | Unknown | | + + + + + Care Team Providers + +------+ + | Care Rf Manager Name | Role | Phone | [...] + + + + | Overview: His HSA9SE0- VASC score is 6( HTN, age, stroke, [...] mild concentric LVH. He has a single-chamber [employer] | | Scientific ventricular pacemaker that is [...] + + | Overview: He has a [employer] Altrua single-chamber | | RV pacemaker [...] was seen | | today for this [employer] single-chamber device. The | | pacing [...] [place] | | | | | | [address] | | | | | | | | +--------+ + + + + | 02/09/ | Procedure | Cardiology | | | | 2019 | visit | | | | +--------+ + + + + | 03/09/ | Office | Nephrology | Isiah Jade MD | | | 2019 | Visit | | [address] [facility] | | | | | | [address] [place] | | | | | | [address] | | | | | | | [...] | + +--------+------+ +--------+--------+--------+ | Implant Id: [id number] - | Cardia | | | | | [id number] | | Pacer-02/04/2019Implanted: | c | | | | | /[id number] | | Qty: 1 on 02/04/2019 by [...] Mercedez Jensen | PACEJEFFERY | | Herson, Senior Infrastructure Engineer 11/12/2019 4:50 [facility] | | | INTERROGATION REPORT Name: Andres Guzmán PCP: Barbara Elkins | | | MD Mukul : 1930MRN: [id number] Primary cardiology | | | provider: Charlee Oswald Primary electrophysiology provider: Enoch | | | [place] Device supervisor cured meats: [employer] Device type: Single | | | chamber [...] +--------+ +---------+--------+ | MEDICARE | MEDICA | [id number] | 04/21/19 | [phone] | | Medica | | | RE | | 97-Pre | 5 | | re | | | PART A | | sent | | | | | | AND B | | | | | | + +--------+ +--------+ +---------+--------+ | INDIVIDUAL ASSURANCE | INDIVI | [id number] | | | | Indemn | | [...] quique | | | 1 (Home) | [address] | + +--------+ +--------+ + + Advance Directives + + + + + | Type | Date Recorded | Patient | Explanation | | | | Stripper Soft Plastic | | + + + + + | Power of | | | | | [address]or[address] | | | | + + + + + | Advance | | | | | Directive | | | | + + + + +
[2019-12-21] MEDS ORDERED: ELIQUIS2.5 MG PO (14:56)
[2019-12-21] MEDS ORDERED: ZESTRIL5 MG PO (14:57)
[2019-12-21] MEDS ORDERED: ZESTRIL5 MG (14:58)
--- NOTE | 2019-12-21 23:03 | EKG ---
[facility] [address] [place], [place] [address] Signed Ventricular-paced rhythm Abnormal ECG When compared with ECG of 01-AUG-2019 12:09, No significant change was found Confirmed by GUILLERMO DIAZ DO ([id number]) on 12/21/2019 11:03:17 PM Electronically Signed By: GUILLERMO DIAZ DO 12/21/19 2303 PATIENT NAME: ENEDINADESIREE Electrocardiogram DATE OF : 34 PHYSICIAN: GUILLERMO DIAZ DO REPORT #: [id number] REPORT IS CONFIDENTIAL AND NOT TO BE RELEASED WITHOUT AUTHORIZATION
== END 2019-12-21 19:34 | disposition short-term general hospital (02) ==
LOC: ED 14:36
DX: S72.141A Displaced intertrochanteric fracture of right femur, initial encounter for closed fracture (principal); E78.00 Pure hypercholesterolemia, unspecified; E11.9 Type 2 diabetes mellitus without complications; I13.0 Hypertensive heart and chronic kidney disease with heart failure and stage 1 through stage 4 chronic kidney disease, or unspecified chronic kidney disease; I50.9 Heart failure, unspecified; Z87.891 Personal history of nicotine dependence; Z88.5 Allergy status to narcotic agent; Z79.899 Other long term (current) drug therapy; W01.0XXA Fall on same level from slipping, tripping and stumbling without subsequent striking against object, initial encounter
CPT/HCPCS: 71045; 73502; 80053; 83880; 85025; 93005; 93010; 96374; 99285-25; J3010; J7040

== ENCOUNTER 2020-01-01 11:38 | Inpatient (IN) | payer MEDICARE ==
[~2020-01-01] VITALS: Ht 165.1 cm; Wt 71.4 kg
--- OUTSIDE RECORDS SUMMARY | ~2020-01-01 | XMS | Encounter Summary ---
Demographics + + + | Address | [address] | | | [place] [address] | + + + | Home Phone | | + + + | Preferred Language | Unknown | + + + | Marital Status | | + + + | Denominational Affiliation | 1001 | + + + | Race | Unknown | + + + | Ethnic Group | Unknown | + + + Author + + + | Author | [facility] | | | and [place] | + + + | Organization | [facility] | | | and [...] [place] | | | | | [address] | | + + + + + | Deanna Lawson | ECON | Unknown | | + + + + + Care Team Providers + +------+ + | Care Tractor Trailer Operator Name | Role | Phone | + +------+ + | Barbara Gilman MD | PCP | | + +------+ + Encounter Details +--------+ + + + + | Date | Type | Department | Care Team | Description | +--------+ + + + + | 09/27/ | Orders Only | [facility] | Darek Charlee | | | 2019 | | [address]VERSION [address] | [address] | | | | | [address] | [place] | | | | | [place], [place] | [place] [address] | | | | | [address] | [phone] | | | | | [phone] | | | +--------+ + + + [...] | | | + + + | Not on file | | + + + + + [...] | +--------+ + + + + | 01/21/ | Office | Cardiology | Dina Sanchez DO | | | 2019 | Visit | | [address] | | | | | | [place] | | | | | | [address] | | | | | | | | +--------+ + + + + | 02/09/ | Procedure | Cardiology | | | | 2019 | visit | | | | +--------+ + + + + | 03/09/ | Office | Nephrology | Isiah Jade MD | | | 2019 | Visit | | [address] [facility] [place] | | | | | | [address] [place] | | | | | | [address] | | | | | | | | +--------+ + + + + documented as of this encounter Procedures + +--------+ + + + | Procedure Name | Priori | Date/Time | Associated Diagnosis | Comments | | | ty | | | | + +--------+ + + + | ECHO COMPLETE | Routin | 09/27/2018 | | Results for this | | | e | 2:22 PM | | procedure are in the | | | | PST | | results section. | + +--------+ + + + documented in this encounter Results ECHO Complete (09/27/2018 2:22 PM PST) + + | Specimen | + + | | + + + + + | Impressions | Performed At | + + + | 1. The left ventricle is normal in size with normal systolic | | | function EF 60%. 2. The right ventricle is moderately enlarged with | | | mildly impaired systolic function. 3. Moderate tricuspid | | | regurgitation with severe pulmonary hypertension. 4. There is no | | | pericardial effusion. 5. Compared with the findings of the prior | | | study, there has been no significant change. | | + + + + + + | Narrative | Performed At | + + + | Patient Name: Andres Guzmán Date of : 1930 | | | Performing Physician: Vikki Godoy | | | | | | INDICATIONS afib, pacemaker, dilated aortic root | | | CONCLUSIONS 1. The left ventricle is normal in size with | | | normal systolic function EF 60%. 2. The right ventricle is | | | moderately enlarged with mildly impaired systolic function. 3. | | | Moderate tricuspid regurgitation with severe pulmonary hypertension. | | | 4. There is no pericardial effusion. 5. Compared with the findings of | | | the prior study, there has been no significant change. FINDINGS | | | -------- ECG rhythm: Paced rhythm. Study: A 2-dimensional | | | transthoracic echocardiogram with m-mode, spectral and color flow | | | Doppler was perfomed. Study: This was a technically adequate study. | | | Left Ventricle: Overall left ventricular systolic function is normal | | | with, an EF 60 %. Left Ventricle: The left ventricle cavity size is | | | normal. Left Ventricle: Left ventricular wall thickness is normal. | | | Basal inferior and inferoseptal hypokinesis. Right Ventricle: The | | | right ventricle is moderately enlarged measuring between 3.8 - 4.1 cm. | | | Right Ventricle: The right ventricular systolic function is mildly | | | impaired. Right Ventricle: Pacer/ICD wire seen. Left Atrium: The | | | left atrium is moderately enlarged. Right Atrium: The right atrium is | | | moderately enlarged. Right Atrium: Pacemaker wire seen in the right | | | atrial cavity. Aortic Valve: The aortic valve is mildly calcified. | | | Aortic Valve: There is mild aortic regurgitation. Aortic Valve: There | | | is no evidence of aortic stenosis. Aortic Valve: The aortic valve is | | | trileaflet. Aortic Valve: Aortic valve is mildly thickened. Aortic | | | Valve: The aortic pressure half-time by doppler is 615ms. Mitral | | | Valve: Mild mitral regurgitation is present. Mitral Valve: Mild | | | mitral annular calcification present. Tricuspid Valve: The tricuspid | | | valve appears structurally normal. Tricuspid Valve: Moderate | | | tricuspid regurgitation present. Tricuspid Valve: There is severe | | | pulmonary hypertension. Tricuspid Valve: The right ventricular | | | systolic pressure (pulmonary artery systolic pressure), as measured by | | | Doppler, is 61.24mmHg. Pulmonic Valve: Pulmonic valve appears | | | structurally normal. Pulmonic Valve: Trace pulmonic regurgitation. | | | Pericardium: There is no pericardial effusion. Pericardium: No | | | pleural effusion seen. IVC/Hepatic Veins: The inferior vena cava is | | | normal in size and collapses > 50 % with sniff, indicating normal | | | central venous pressures. Aorta: The aortic root is dilated, limited | | | to the sinuses of valsalva measuring up to 40 mm. General comments: | | | Compared with the findings of the prior study, there has been no | | | significant change. MEASUREMENTS Ao asc: 3.58 | | | cm Ao sinus: 4.[address] junct: 3.18 cm IVC: 2.17 cm LA | | | Diam: 4.47 cm EDV(Teich): 143.62 ml IVSd: 1.10 cm LVIDd: | | | 5.43 cm LVPWd: 0.92 cm LVOT Area: 4.11 cm2 LVOT Diam: | | | 2.29 cm %FS: 21.62 % EF(Teich): 43.35 % ESV(Teich): 81.34 | | | ml LVIDs: 4.26 cm SV(Teich): 62.27 ml RVIDd: 4.26 cm LVEF | | | MOD A2C: 60.36 % SV MOD A2C: 63.73 ml LVEF MOD A4C: 51.09 | | | % SV MOD A4C: 47.02 ml EF Biplane: 55.79 % LVEDV MOD BP: | | | 100.69 ml LVESV MOD BP: 44.50 ml LVEDV MOD A2C: 105.58 ml | | | LVLd A2C: 7.65 cm LVEDV MOD A4C: 92.04 ml LVLd A4C: 8.03 cm | | | LVESV MOD A2C: 41.84 ml LVLs A2C: 6.69 cm LVESV MOD A4C: | | | 45.01 ml LVLs A4C: 7.09 cm LAESV(A-L): 102.84 ml LAESV Index | | | (A-L): 58.76 ml/m2 LAAs A2C: 25.86 cm2 LAESV A-L A2C: 90.57 | | | ml LALs A2C: 6.26 cm LAAs A4C: 29.36 cm2 LAESV A-L A4C: | | | 115.78 ml LALs A4C: 6.32 cm RAAs: 26.92 cm2 RAESV A-L: | | | 103.75 ml RAESV MOD: 96.91 ml RALs: 5.92 cm TAPSE: 1.67 cm | | | AR Dec Mora: 1.62 m/s2 AR Dec Time: 2122.29 ms AR maxPG: | | | 47.71 mmHg AR PHT: 615.46 ms AR Vmax: 3.45 m/s AV maxPG: | | | 6.22 mmHg AV meanP.30 mmHg AV Vmax: 1.24 m/s AV Vmean: | | | 0.84 m/s AV VTI: 25.35 cm JACLYN Vmax: 2.51 cm2 JACLYN (VTI): | | | 2.84 cm2 AVAI (Vmax): 0.00 cm2/m2 AVAI (VTI): 0.00 cm2/m2 | | | LVOT maxP.33 mmHg LVOT meanP.18 mmHg LVSI Dopp: | | | 41.23 ml/m2 LVSV Dopp: 72.16 ml LVOT Vmax: 0.76 m/s LVOT | | | Vmean: 0.51 m/s LVOT VTI: 17.52 cm MV E Good: 0.83 m/s MV | | | DecT: 228.95 ms Septal e': 0.04 m/s Septal E/e': 16.83 | | | Lateral e': 0.09 m/s Lateral E/e': 8.84 RAP: 5 mmHg RVSP: | | | 61.23 mmHg TR maxP.23 mmHg TR Vmax: 3.74 m/s RV s': | | | 0.10 m/s Web Designer Developer: PARTHA Authenticated by: Vikki Godoy | | | Report Date/Time: 09-27-2018 20:0:35 | | + + + + + | Procedure Note | + + | [facility] Conversion - 04/11/2019 12:50 PM PDT Patient Name: [place] Guzmán of | | : 1930 Performing Physician: Vikki | | Jayne INDICATIONS------ | | -----afib, pacemaker, dilated aortic root CONCLUSIONS 1. The left ventricle is | | normal in size with normal systolic function EF 60%.2. The right ventricle is | | moderately enlarged with mildly impaired systolic function.3. Moderate tricuspid | | regurgitation with severe pulmonary hypertension.4. There is no pericardial effusion.5. | | Compared with the findings of the prior study, there has been no significant change. | | FINDINGS--------ECG rhythm: Paced rhythm.Study: A 2-dimensional transthoracic | | echocardiogram with m-mode, spectral and color flow Doppler was perfomed.Study: This was | | a technically adequate study.Left Ventricle: Overall left ventricular systolic function | | is normal with, an EF 60 %.Left Ventricle: The left ventricle cavity size is | | normal.Left Ventricle: Left ventricular wall thickness is normal. Basal inferior and | | inferoseptal hypokinesis.Right Ventricle: The right ventricle is moderately enlarged | | measuring between 3.8 - 4.1 cm.Right Ventricle: The right ventricular systolic function | | is mildly impaired.Right Ventricle: Pacer/ICD wire seen.Left Atrium: The left atrium is | | moderately enlarged.Right Atrium: The right atrium is moderately enlarged.Right Atrium: | | Pacemaker wire seen in the right atrial cavity.Aortic Valve: The aortic valve is mildly | | calcified.Aortic Valve: There is mild aortic regurgitation.Aortic Valve: There is no | | evidence of aortic stenosis.Aortic Valve: The aortic valve is trileaflet.Aortic Valve: | | Aortic valve is mildly thickened.Aortic Valve: The aortic pressure half-time by doppler | | is 615ms.Mitral Valve: Mild mitral regurgitation is present.Mitral Valve: Mild mitral | | annular calcification present.Tricuspid Valve: The tricuspid valve appears structurally | | normal.Tricuspid Valve: Moderate tricuspid regurgitation present.Tricuspid Valve: There | | is severe pulmonary hypertension.Tricuspid Valve: The right ventricular systolic | | pressure (pulmonary artery systolic pressure), as measured by Doppler, is | | 61.24mmHg.Pulmonic Valve: Pulmonic valve appears structurally normal.Pulmonic Valve: | | Trace pulmonic regurgitation.Pericardium: There is no pericardial effusion.Pericardium: | | No pleural effusion seen.IVC/Hepatic Veins: The inferior vena cava is normal in size | | and collapses > 50 % with sniff, indicating normal central venous pressures.Aorta: The | | aortic root is dilated, limited to the sinuses of valsalva measuring up to 40 mm.General | | comments: Compared with the findings of the prior study, there has been no significant | | change. MEASUREMENTS Ao asc: 3.58 cmAo sinus: 4.[address] junct: 3.18 | | cmIVC: 2.17 cmLA Diam: 4.47 cmEDV(Teich): 143.62 mlIVSd: 1.10 cmLVIDd: 5.43 | | cmLVPWd: 0.92 cmLVOT Area: 4.11 [id number] Diam: 2.29 cm%FS: 21.62 %EF(Teich): | | 43.35 %ESV(Teich): 81.34 mlLVIDs: 4.26 cmSV(Teich): 62.27 mlRVIDd: 4.26 cmLVEF | | MOD A2C: 60.36 %SV MOD A2C: 63.73 mlLVEF MOD A4C: 51.09 %SV MOD A4C: 47.02 mlEF | | Biplane: 55.79 %LVEDV MOD BP: 100.69 mlLVESV MOD BP: 44.50 mlLVEDV MOD A2C: | | 105.58 mlLVLd A2C: 7.65 cmLVEDV MOD A4C: 92.04 mlLVLd A4C: 8.03 cmLVESV MOD A2C: | | 41.84 mlLVLs A2C: 6.69 cmLVESV MOD A4C: 45.01 mlLVLs A4C: 7.09 cmLAESV(A-L): | | 102.84 mlLAESV Index (A-L): 58.76 ml/m2LAAs A2C: 25.86 [id number] A-L A2C: 90.57 | | mlLALs A2C: 6.26 cmLAAs A4C: 29.36 [id number] A-L A4C: 115.78 mlLALs A4C: 6.32 | | cmRAAs: 26.92 [id number] A-L: 103.75 mlRAESV MOD: 96.91 mlRALs: 5.92 cmTAPSE: | | 1.67 cmAR Dec Mora: 1.62 m/s2AR Dec Time: 2121. msAR maxP.71 mmHgAR PHT: | | 615.46 msAR Vmax: 3.45 m/Armen maxP.22 mmHgAV meanP.30 mmHgAV Vmax: 1.24 | | m/Armen Vmean: 0.84 m/Armen VTI: 25.35 cmAVA Vmax: 2.51 cm2AVA (VTI): 2.84 [id number] | | (Vmax): 0.00 cm2/m2AVAI (VTI): 0.00 cm2/m2LVOT maxP.33 mmHgLVOT meanP.18 | | mmHgLVSI Dopp: 41.23 ml/m2LVSV Dopp: 72.16 mlLVOT Vmax: 0.76 m/sLVOT Vmean: | | 0.51 m/sLVOT VTI: 17.52 cmMV E Good: 0.83 m/sMV DecT: 228.95 msSeptal e': 0.04 | | m/sSeptal E/e': 16.83Lateral e': 0.09 m/sLateral E/e': 8.84RAP: 5 mmHgRVSP: | | 61.23 mmHgTR maxP.23 mmHgTR Vmax: 3.74 m/sRV s': 0.10 m/s Web Designer Developer: | | DBSAuthenticated by: Vikki [facility] Date/Time: 09-27-2018 20:0:35 IMPRESSION: 1. | | The left ventricle is normal in size with normal systolic function EF 60%.2. The right | | ventricle is moderately enlarged with mildly impaired systolic function.3. Moderate | | tricuspid regurgitation with severe pulmonary hypertension.4. There is no pericardial | | effusion.5. Compared with the findings of the prior study, there has been no significant | | change. | |Ao sinus: 4.08 cm | |Ao st junct: 3.18 cm | |IVC: 2.17 cm | |LA Diam: 4.47 cm | |EDV(Teich): 143.62 ml | |IVSd: 1.10 cm | |LVIDd: 5.43 cm | |LVPWd: 0.92 cm | |LVOT Area: 4.11 cm2 | |LVOT Diam: 2.29 cm | |%FS: 21.62 % | |EF(Teich): 43.35 % | |ESV(Teich): 81.34 ml | |LVIDs: 4.26 cm | |SV(Teich): 62.27 ml | |RVIDd: 4.26 cm | |LVEF MOD A2C: 60.36 % | |SV MOD A2C: 63.73 ml | |LVEF MOD A4C: 51.09 % | |SV MOD A4C: 47.02 ml | |EF Biplane: 55.79 % | |LVEDV MOD BP: 100.69 ml | |LVESV MOD BP: 44.50 ml | |LVEDV MOD A2C: 105.58 ml | |LVLd A2C: 7.65 cm | |LVEDV MOD A4C: 92.04 ml | |LVLd A4C: 8.03 cm | |LVESV MOD A2C: 41.84 ml | |LVLs A2C: 6.69 cm | |LVESV MOD A4C: 45.01 ml | |LVLs A4C: 7.09 cm | |LAESV(A-L): 102.84 ml | |LAESV Index (A-L): 58.76 ml/m2 | |LAAs A2C: 25.86 cm2 | |LAESV A-L A2C: 90.57 ml | |LALs A2C: 6.26 cm | |LAAs A4C: 29.36 cm2 | |LAESV A-L A4C: 115.78 ml | |LALs A4C: 6.32 cm | |RAAs: 26.92 cm2 | |RAESV A-L: 103.75 ml | |RAESV MOD: 96.91 ml | |RALs: 5.92 cm | |TAPSE: 1.67 cm | |AR Dec Mora: 1.62 m/s2 | |AR Dec Time: 2122.29 ms | |AR maxP.71 mmHg | |AR PHT: 615.46 ms | |AR Vmax: 3.45 m/s | |AV maxP.22 mmHg | |AV meanP.30 mmHg | |AV Vmax: 1.24 m/s | |AV Vmean: 0.84 m/s | |AV VTI: 25.35 cm | |JACLYN Vmax: 2.51 cm2 | |JACLYN (VTI): 2.84 cm2 | |AVAI (Vmax): 0.00 cm2/m2 | |AVAI (VTI): 0.00 cm2/m2 | |LVOT maxP.33 mmHg | |LVOT meanP.18 mmHg | |LVSI Dopp: 41.23 ml/m2 | |LVSV Dopp: 72.16 ml | |LVOT Vmax: 0.76 m/s | |LVOT Vmean: 0.51 m/s | |LVOT VTI: 17.52 cm | |MV E Good: 0.83 m/s | |MV DecT: 228.95 ms | |Septal e': 0.04 m/s | |Septal E/e': 16.83 | |Lateral e': 0.09 m/s | |Lateral E/e': 8.84 | |RAP: 5 mmHg | |RVSP: 61.23 mmHg | |TR maxP.23 mmHg | |TR Vmax: 3.74 m/s | |RV s': 0.10 m/s | | | |Web Designer Developer: DBS | |Authenticated by: Vikki Godoy | |Report Date/Time: 09-27-2018 20:0:35 | | | |IMPRESSION: | |1. The left ventricle is normal in size with normal systolic function EF 60%. | |2. The right ventricle is moderately enlarged with mildly impaired systolic function. | |3. Moderate tricuspid regurgitation with severe pulmonary hypertension. | |4. There is no pericardial effusion. | |5. Compared with the findings of the prior study, there has been no significant change. | + + documented in this encounter Visit Diagnoses Not on filedocumented in this encounter"
--- OUTSIDE RECORDS SUMMARY | ~2020-01-01 | XMS | Encounter Summary ---
Demographics + + + | Address | [address] | | | [place] [address] | + + + | Home Phone | | + + + | Preferred Language | Unknown | + + + | Marital Status | | + + + | Zoroastrianism Affiliation | 1001 | + + + | Race | Unknown | + + + | Ethnic Group | Unknown | + + + Author + + + | Author | [facility] | | | and [place] | + + + | Organization | [facility] | | | [...] [place] | | | | | [address] | | + + + + + | Deanna Lawson | ECON | Unknown | | + + + + + Care Team Providers + +------+ + | Care Hardware Technician Name | Role | Phone | + +------+ + PCP | Unavailable | + +------+ + Encounter Details +--------+ + + + + | Date | Type | Department | Care Team | Description | +--------+ + + + + | 02/04/ | Hospital | [facility] | Conversion | Presence of cardiac | | 2019 | Encounter | [facility] | Transaction, | pacemaker; Permanent | | | | [address] | Provider Unknown | atrial fibrillation | | | | [place], [place] | [phone] | (HCC); 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 Patient has all personal belongings, discharge instru ctions and prescriptions. We discussed, skin care, activity, diet, pain control, follow up care and appointments along with new prescribed medications. Patient expressed understandin g and had no questions. docume nted in this encounter Plan of Treatment +--------+ + + + + | Date | Type | Specialty | Care Team | Description | +--------+ + + + + | 01/21/ | Office | Cardiology | Dina Sanchez DO | | | 2019 | Visit | | [address] | | | | | | [place] | | | | | | [phone] | | | | | | | | +--------+ + + + + | 02/09/ | Procedure | Cardiology | | | | 2019 | visit | | | | +--------+ + + + + | 03/09/ | Office | Nephrology | Isiah Jade MD | | | 2019 | Visit | | [address] | | | | | | [address] [place], [place] | | | | | | [address] | | | | | | | [...] will be seen in one week in [place] | | | by ENEDINA Bo. Read [...] | | indicator status. 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 He has felt poorly over the last few | | | weeks since the device went into an MIRIAN mode. The current lead is | | | a [employer] model 4136, serial #[id number]. The current | | | pacemaker is a [employer] model S601, serial #[id number]. He is | | | anticoagulated and [...] The lead was attached to a new [employer] | | | Accolade MRI compatible model L310, serial #[id number] pacemaker. That | | | device was [...] indicator | | status. 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 He | | has felt poorly over the last few weeks since the device went into an MIRIAN | | mode. The current lead is a [employer] model 4136, serial | | #[id number]. The current pacemaker is a [employer] model S601, serial | | #[id number]. He is anticoagulated and the last dose [...] The lead was attached to a new [employer] | | Accolade MRI compatible model L310, serial #[id number] pacemaker. That device | | was placed [...] seen in one | | week in [place] by ENEDINA Bo. | | | | [...] | | | Fingerstick | performed at [facility];[address] | | LAB | | | | [address];[place] | | | | | | [address] | | | | + + + [...] + + + | Red Blood | 3.17 (L) | 4.20 - 5.70 [...] | | | Basophils | performed at [facility];[address] | [address] | LAB | | | [address];[place], [place] | | | | | | [address] | | | | + + + [...] | | | | | | MDRD IDMS traceable | | | | | | equation.Testing | | | | | | performed at [facility];[address] | | | | | | [facility];[place], [place] | | | | | | [address] | | | | + + + [...] pacemaker | + + documented in this encounter"
--- OUTSIDE RECORDS SUMMARY | ~2020-01-01 | XMS | Encounter Summary ---
Demographics + + + | Address | [address] | | | [place] [address] | + + + | Home Phone | | + + + | Preferred Language | Unknown | + + + | Marital Status | | + + + | Baptism Affiliation | [id number] | + + + | Race | Unknown | + + + | Ethnic Group | Unknown | + + + Author + + + | Author | [facility] | | | and [place] | + + + | Organization | [facility] | | | [...] [place] | | | | | [id number] | | + + + + + | Deanna Lawson | ECON | Unknown | | + + + + + Care Team Providers + +------+ + | Care Net Applications Developer Name | Role | Phone | + +------+ + | Barbara Gilman MD | PCP | | + +------+ + Reason for Visit + + + | Reason | Comments | + + + | Follow-up | 4 week f/u /Telephonic | + + + Encounter Details +--------+ + + + + | Date | Type | Department | Care Team | Description | +--------+ + + + + | 11/27/ | Virtual | [facility] | Charlee Oswald | Cardiac pacemaker in | | 2020 | Office | CARDIOLOGY [facility] | [address] | situ (Primary Dx); | | | Visit | [address] | [place] | Permanent atrial | | | | [address] | [place] [address] | fibrillation (HCC); | | | | [place] | [phone] | Chronic diastolic | | | | [address] | | heart failure (HCC); | | | | [phone] | | Dilated aortic root | | | | | | (HCC); Hypertension | | | | | | goal BP (blood | | | | | | pressure) < 140/80; | | | | | | Mixed | | | | | | hyperlipidemia; | | | | | | Moderate to severe | | | | | | pulmonary | | | | | | hypertension (HCC); | | | | | | Moderate tricuspid | | | | | | regurgitation; | | | | | | History of stroke; | | | | | | On apixaban therapy; | | | | | | Stage 4 chronic | | | | | | kidney disease | | | | | | (HCC); 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, | | | | | | without long-term | | | | | | current use of | | | | | | insulin (HCC); | | | | | | Anemia due to stage | | | | | | 4 chronic kidney | | | | | | disease (HCC); Risk | | | | | | factors for | | | | | | obstructive sleep | | | | | | apnea | +--------+ + + + + Social [...] | | | + +---+---+---+ + + | Tobacco Cessation: Counseling Given: No | + + + + +---------+ + | Alcohol Use [...] + + + | Blood Pressure | 112/53 | 11/28/2019 10:25 AM | | | | | PDT | | + + + + + | Pulse | 61 | 11/28/2019 10:25 AM | | | | | PDT | | + + + + + | Temperature | - | - | | + + + + + | Respiratory Rate | - | - | | + + + + + | Oxygen Saturation | - | - | | + + + + + | Inhaled Oxygen | - | - | | | Concentration | | | | + + + + + | Weight | 63.5 kg (140 lb) | 11/28/2019 10:25 AM | | | | | PDT | | + + + + + | Height | 165.1 cm (5' 5") | 11/28/2019 10:25 AM | | | | | PDT | | + + + + + | Body Mass Index | 23.3 | 11/28/2019 10:25 AM | | | | | PDT | | + + + + + documented in this encounter Patient Instructions Patient Instructions Charlee Oswald FNP - 11/28/2019 10:30 AM PDTI have ordered you fasting labs to be done at , but can drink water prior to having labs done I also ordered you an Echo and carotid ultra sound to be done at I made changes to medications See me back in documented in this encounter Progress Notes Charlee Oswald FNP - 11/28/2019 10:30 AM PDTFormatting of this note might be differe nt from the original. Date of visit: 11/28/2019 Primary Care Physician: Barbara Gilman MD CHIEF COMPLAINT: Chief Complaint Patient presents with Follow-up 4 week f/u /Telephonic Andres Guzmán has independently initiated the visit. Andres Guzmán verbally confirmed his choice to initiate care by, and consents to receive care by Telephone. Participants: Patient All medical advice and/or management options were discussed 11/28/2019. Clinical discussion length with provider (including additional time spent for relevant emily review to patient's care): 11-20 minutes of medical discussion via telephone visit ([id number]) Patient has not been seen in office within the past 7 days, and outcome of this call is not to recommend soonest available office visit. Return in about 2 months (around 01/28/2020) for bring medications to all clinic visits, plea se complete testing and labs as ordered. Subjective: Patient ID: Andres Guzmán is a 89 y.o. male. CC: Chief Complaint Patient presents with Follow-up 4 week f/u /Telephonic HPI: see below Assessment & Plan See below Charlee Oswald, [place] 11/28/2019 HISTORY OF PRESENT ILLNESS: Mr. Andres Guzmán is an 89-year-old man who is performing a telephone visit with me toda y due to pandemic restrictions , as in high risk category Today I reviewed all available information in electronic medical record, as well as from ex ternal sources. He has a history of chronic atrial fibrillation, stroke in 2007 stroke with right leg weak ness with residual right-sided facial and lip droop, pacemaker , cardiomyopathy, chronic d iastolic heart failure with preserved EF, hypertension, hyperlipidemia, type II diabetes, a nd mild cirrhosis [facility], though liver enzymes normal . He was previously diagnosed with [facility] ap[facility], but updated [facility] in 2018 was reported by him as being negative His [id number]- VASC score is 6( HTN, age, stroke, DM) and was anticoagulated on Eliquis 2.5 mg bid for renal dosing, but for some reason this has been stopped, possibly by the [facility] , since I saw him last. His pacemaker had reached end of battery life on December 28, 2018 and it was replaced by Dr. Thompson 2018, and he last followed up with him 05/07/2019, and note reviewed , [facility]. His current and previous testing and procedures are detailed below. I saw him last October 28, 2019, when I was very concerned about him, as he seemed very conf used, he had several changes to his medications, including stopping his lisinopril, his Eliq uis, and having his furosemide changed to twice daily, and he did not know why any of those changes had occurred. He had also been seen in the emergency room in September for a sharp d ecline in his renal function, but had not followed up with nephrology, but had followed up w kari Brito. I had restarted his apixaban 2.5 mg twice daily due to his extremely high risk of stroke wi th no acute bleeding when I saw him last, and continued his twice daily furosemide, and had continue to hold his lisinopril, and had ordered him an updated CBC, BNP, BMP to be perform ed for today's visit, but he did not get them done. I finally received an office note from Dr. Brito dated October 09 which documented that his apixaban had been stopped by the [place] for increased anemia but had noted that he had been anemic for the past couple years with the most recent hemoglobin of 9.2 with an elevated MCV but a normal ferritin level of 98. He reported apparently there had been concerns for a GI bleed, but his endoscopy and colonoscopy in July 2019 had shown moderate hemorrhagic ga stric duodenitis. He postulated that anemia of chronic kidney disease was a possibility, but he had referred the patient to Dr. Li for further evaluation and treatment of h is anemia. I also received documentation dated [facility] the [facility] which noted they had stopped api xaban because they thought he was a low risk for atrial fib, which is not true, as he is 100 % of the time in atrial fib, but he has a ventricular pacemaker and is 100% RV paced, so flaco ble to evaluate burden of atrial fib, but it is noted on EKG underlying his V paced rhythm. They held his lisinopril for worsening renal function. He reports today that he feels considerably improved since he saw me last, and has con tinued to lose weight, and no longer fluid overloaded and has lost 9 pounds since he saw me last per his home scale. His heart rate and blood pressure are well controlled, and he repo rts he once again is back to his usual baseline activity level, and is able to work outside for 2 hours at the time without any shortness of breath or fatigue. He denies any dizziness or lightheadedness, chest pain, palpitations, peripheral edema, s yncope, or any signs or symptoms of stroke or TIA. He has continued Eliquis 2.5 mg twice da quique since he saw me last, and denies any bleeding He reports today that he did not feel well in August, but has felt much improved in the last month and thinks he is less fluid overloaded. He denies any chest pain, dyspnea, or syncope. He also denies any signs or symptoms of st roke or TIA since Eliquis stopped. His weight down 52 lbs from 192 pounds in 07/2017. REVIEW OF SYSTEMS: Negative except for pertinent items noted in HPI. Constitutional: Denies fatigue or unexplained weight loss. Appetite is good. Weight down almost 52 pounds from 192 pounds 07/2017. .Denies night sweats fevers or chills HENT: Occasional Nosebleeds, see HPI . hearing problems-bilateral hearing aids. Denies d ysphagia Eyes: History of cataract surgery, history of left eyelid surgery Denies visual disturbance or double vision. Denies history of glaucoma Respiratory: Denies cough and shortness of breath. Denies hemoptysis or excessive sputum p roduction. Positive [facility], but updated study performed i 2017 showed no sleep apnea, referred to Dr. Dorsey 10/28/2019 for increased pulm hypertension Cardiovascular: Denies chest pain, palpitations, lower extremity edema has remained resolve d Denies history of rheumatic fever . Gastrointestinal: History of GERD on Ranitidine , history of cirrhosis [facility] the [facility]. Denies nausea, vomiting, abdominal pain and blood in stool. Genitourinary: Negative for hematuria. history of benign prostatic hypertrophy with eleva colt PSA [facility] Musculoskeletal: Occasional back and joint stiffness and pain. Denies myalgias Skin: Denies color change. Denies rash or lesions Neurological: Reports of Vertigo, see HPI> CVA 2006 Originally right sided leg weakness, resolved. Residual occasional right sided facial and lip droop, with fatigue. Denies dizzin ess, syncope and numbness. Denies focal motor or sensory deficits Hematological: Bruises occasionally does not bleed easily. history of skin cancer Endocrine: History of diabetes, well-controlled Denies thyroid disease. Denies excessive thirst or hunger. Psychiatric/Behavioral: The patient denies any history of depression or anxiety or other p sychiatric illness. Vaccines: Current on 2018 flu vaccine. Current on pneumonia vaccine. Habits: history of smoking,3/4ppd 35 years, quit 1981 Denies EtOH use, previously drank heavily, quit in the s. Denies recreational or illicit drug use. Exercises with [employer] and yard work, tolerates without chest pain or dyspnea. 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 to [place] . Outpatient Medications Prior to Visit Medication Sig Dispense Refill allopurinol (ZYLOPRIM) 100 mg tablet Take 1 tablet by mouth daily. 90 tablet 3 apixaban (ELIQUIS) 2.5 mg tablet Take 1 tablet by mouth 2 times daily. For stroke preve ntion 60 tablet 0 ascorbic acid (VITAMIN C) 500 MG tablet Take 500 mg by mouth daily. carvedilol (COREG) 25 mg tablet Take 1 tablet by mouth 2 (two) times daily with meals. 60 tablet 11 ferrous sulfate 325 mg tablet Take 65 mg of iron by mouth every other day. furosemide (LASIX) 40 mg tablet Take 40 mg by mouth 6 days per week. (Patient taking di fferently: Take 40 mg by mouth 2 times daily. Changed by PCP) meclizine (ANTIVERT) 25 mg tablet Take 1 tablet by mouth 3 (three) times daily as neede d. (Patient taking differently: Take 25 mg by mouth 3 times daily as needed (takes rarely).) 90 tablet 0 metFORMIN (GLUCOPHAGE) 500 mg tablet Take 500 mg by mouth 3 (three) times daily. pravastatin (PRAVACHOL) 80 MG tablet Take 40 mg by mouth nightly. (Patient taking diffe rently: Take 40 mg by mouth nightly. Take one half tablet by mouth nightly) spironolactone (ALDACTONE) 25 mg tablet Take 25 mg by mouth Daily. terazosin (HYTRIN) 10 MG capsule Take 10 mg by mouth daily with dinner. No facility-administered medications prior to visit. PHYSICAL EXAM: Wt Readings from Last 3 Encounters: 11/28/19 63.5 kg (140 lb) 10/28/19 67.7 kg (149 lb 4.8 oz) 06/27/19 72 kg (158 lb 11.2 oz) Temp Readings from Last 3 Encounters: 02/11/19 36.7 C (98.1 F) BP Readings from Last 3 Encounters: 11/28/19 112/53 10/28/19 124/50 06/27/19 126/52 Pulse Readings from Last 3 Encounters: 11/28/19 61 10/28/19 60 06/27/19 60 PHYSICAL EXAM NOT PERFORMED TELEPHONIC VISIT-KEPT FOR HISTORY GENERAL: Frail elderly man , appears tired and pale today. Appears approximately stated age. HEENT: Normocephalic, atraumatic. Bilateral hearing aids EYES: PERRL, EOM normal. Glasses MOUTH: Oral mucosae moist, poor dentition no lesions noted NECK: No JVD, lymphadenopathy, thyromegaly, bruits. Carotid pulses are 2+ bilaterally LUNGS: clear to auscultation , no wheezing, no rales, or rhonchi noted, respirations unlab ored HEART: RUC pacemaker site well Healed, stable to palpation. 2/6 systolic murmur LLSB. Non displaced PMI, regular rate and rhythm, S1, S2 normal. No rubs or gallops noted. ABDOMEN: , Soft, nontender, no organomegaly, masses or bruits. Bowel sounds are normal i n all 4 quadrants. The abdominal aortic pulsation is not palpable. EXTREMITIES: Trace pedal edema bilaterally . Radial pulses 2+ bilaterally. Femoral pulse s are 2+ bilaterally without bruits. DP and PT pulses are 2+ bilaterally. No clubbing. SKIN: Warm and dry, capillary refill is normal, no lesions. NEUROLOGIC: Awake, alert and oriented x 3. No focal motor or sensory deficits. PSYCHIATRIC: Appropriate, affect appears normal DATA: Blood tests: Lab Results Component Value Date WBC 4.0 (A) 04/01/2019 RBC 2.74 (A) 04/01/2019 HGB 9.0 (A) 04/01/2019 Lab Results Component Value Date NA 138 04/01/2019 K 4.8 04/01/2019 CL 104 04/01/2019 CO2 23 04/01/2019 ANIONGAP 15.8 04/01/2019 GLUF 122 (A) 04/01/2019 BUN 41 (A) 04/01/2019 EGFR 39 (A) 04/01/2019 Lab Results Component Value Date GLUF 122 (A) 04/01/2019 Lab Results Component Value Date BNP 506 (H) 07/26/2017 TSH 5.82 (H) 07/26/2017 No results found for: TOTEPI CARDIAC PROCEDURES/IMAGING Last stress test, 09/08/2015: Lexiscan, perfusion images NML, LVEF 64%. PACER: Last Pacemaker implant : 02/04/2019: ( Dr. Thompson) : new [employer] MRI com patible model L310, serial #[id number] pacemaker. The current lead is a [employer] model 4136, serial #[id number].Mode for pacing, VVIR with dual-sensor technology programmed on. T he lower rate will be 60 and upper rate 120beats per minute. The output will be 2 volts at 0.4 milliseconds with sensitivity of 2.5 millivolts. Pacing and sensing will be bipolar Previous Implant Pacemaker/ICD: 07/30/2010, BS [employer] S601, SN: [id number]. [facility]. Last pacer interrogation: 11/11/2019: Battery longevity 9 years. Pacer dependent. RV paci n%. No atrial lead, unable to monitor burden of atrial fibrillation. No ventricular high rate episodes. Lead impedance and threshold values acceptable. CHF parameters and ethan nds reviewed and stable. pacer interrogation: 05/07/2019: ( Dr. Thompson) : Normal device function was seen today for th is [employer] single-chamber device. The pacing threshold was 0.6 V at 0.6 ms and 0 .4 ms at 0.7 V. He was left at 2 V at 0.5 ms. There has been no arrhythmias. He is pac emaker dependent and feels poorly without any pacing..Battery longevity : 9.5 years VVIR 60- 120 bpm ECHO: Last Echo: 09/23/2019: [facility]: 55-60%. Mid to basal inferior and septal wall hypokinesia. Mild LVH. LV normal in size. Mild RVE, pacer wire noted. Both Atria severely enlarged .Aorti c valve trileaflet mildly calcific, mild to moderate AI, sclerosis without stenosis. Mild t o moderate MR, mild MAC. severe pulmonary hypertension RVSP 80 mmHg. Severe TR, velocity 4 .04 m/s with estimated PASP 65 mmHg, RAP 15 mmHg. Normal pulmonic valve with mild NC. Sinus of Valsalva dilated about 4.26 cm, ascending aorta dilated 4.08 cm, IVC appears dilated Echo: 09/27/2018: ([facility]): Paced rhythm. Technically adequate study. EF 60 percent. LV erick l in size and wall thickness. Basal inferior and anteroseptal hypokinesis. Moderate RVE (3 .8-4.1 cm), mildly impaired RV systolic function. Pacer wires in RA/RV. Moderate biatrial enlargement. Aortic valve mildly calcified, mild AI, no evidence of aortic stenosis, trilea flet, mildly thickened aortic pressure half-time 650 ms. Mild MR, mild MAC. Tricuspid valv e normal moderate TR. Severe pulmonary hypertension, RVSP 61.24 mmHg. Pulmonic valve erick l, trace PI. No pericardial or pleural effusion. IVC WNL, normal CVP. Aortic root dilated showing up to 40 mm, compared to previous study no significant change, except less pulmonar y hypertension Echo:07/26/2017: [facility]: EF >70 percent. LV normal in size mild left ventricular hypertrophy . Moderate diastolic dysfunction, grade 2. Moderate RVE 3.8-4.1 cm, normal RV systolic fun ction. Biatrial enlargement, left is severe right is moderate. Mild aortic sclerosis witho ut stenosis, mild aortic regurgitation without aortic stenosis. Mild to moderate MR. Mild mitral calcification. Moderate TR, severe pulmonary hypertension. RVSP 74.64 mmHg. IVC >2 .5 cm, consistent with CVP >20 mmHg. Aortic root dilated 4.2 cm Echo: 04/03/2017: LV normal in size, wall thickness and EF 55-60%.basal inferior hypokines is. Moderate RVE with mildly impaired systolic function. Marked left atrial enlargement, m oderate CHARLES. Mild calcification of aortic valve with mild regurgitation but no stenosis. M ild MR . Moderate tricuspid regurgitation with moderate to severe pulmonary hypertension RVS P 62 mmHg. no pericardial effusion. 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 EKG/EVENT MONITOR ECG, 10/30/2015 ([facility]): VVI-pacing, frequent PVC's. EK11/28: Ventricular paced rhythm with atrial fibrillation.left bundle branch block , occasional PVC. Rate 61 bpm, QRS 172 ms, QTC 465 , no significant changes when compared t o EKG of August 2015 EK07/25/2017 V-paced Rhythm: rate 60 bpm, QRS 168 ms, QTC 462 ms. , tracing viewed by me, stable EK06/25/2018: Ventricular paced rhythm. Rate 63 bpm, QRS 172 ms, QTC 470 ms, tracing per sonally reviewed by me, and compared to EKG performed July 2017, improved QRS voltage t o limb leads and V5 EK02/11/2019: Ventricular paced rhythm. Rate 62 bpm, QRS 166 ms, QTC 483 ms, tracing per sonally reviewed by me LABS: Labs: 02/08: ( [facility]) CBC: WBC 6.6, hemoglobin 12.5, and hematocrit 36.7, platelets 173, CMP: glucose 114, BUN 25, creatinine 1.3, GFR 52.6 sodium 139, potassium 4.1, chloride 103, albumin 4.5, AST 18, ALT 12, alk phos 68, total bilirubin 0.6 lipids: Cholesterol 111, trigl ycerides 89, HDL 38, LDL 55, ratio 2.9, non-HDL cholesterol 73 Labs: : Lipids: Cholesterol 100, triglycerides 91, HDL 32.6, LDL 49, VLDL 18, rat io 3.1, non-HDL cholesterol 67. CMP: Sodium 140, potassium 4.3, chloride 103, glucose 151, BUN 23, creatinine 1.32, GFR 52, AST 13, ALT 9, alk phos 70, total bilirubin 0.9, albumin 4. 1 Labs: : INR 2.8, CBC: WBC 4.59, hemoglobin 8.3, hematocrit 25, platelets 159. B MP: Sodium 141, potassium 3.6, chloride 106, glucose 113, BUN 23, creatinine 1.2, GFR >60 Labs: 2017: BMP: Sodium 141, potassium 4, chloride 106, glucose 96, calcium 8.7, BUN 2 9, creatinine 1.61, GFR 41. CBC: WBC 4.7, hemoglobin 9.9, hematocrit 31.1, platelets 168. INR 2.9 Labs: 10/18/2017: CMP: NA 137, K 4.2, CL 99, GL 179,BUN 31, CR 1.33, GFR 51,AST 16, ALT 10,A LK PHS 75,TOTAL BILI 0.6,ALB 3.9 Labs: 02/18/2018: ([facility]). CBC: WBC 6.2, RBC 3.46, hemoglobin 11.2, hematocrit 32 .6, platelets 125, INR 1.9. CMP: Glucose 144, BUN 35, creatinine 1.61, GFR 41, sodium 130, potassium 4.3, chloride 99, magnesium 1.7, albumin 3.9, total bilirubin 0.4, AST 17, ALT 13, alk phos 60. Troponin T <0.010. BNP 553 Labs: 01/08/2018: ([facility]): Lipids: ( Pravachol 40 mg) Cholesterol 99, HDL 36, LDL 48, triglycer yulisa 73. Thyroid: TSH 3.55 Labs: 08/23/2018: ( [facility]): CBC: WBC 6.6, RBC 2.92, hemoglobin 9.5, hematocrit 28, platelets 165. CMP: Glucose 109, BUN 30, creatinine 1.45, GFR 46, sodium 138, potassium 3.9, chlorid e 103, CO2 24, magnesium 1.4, albumin 3.7, AST 12, ALT 7, alk phos 67, troponin T 0.020 Labs: 09/24/2018: BMP: Sodium 139, potassium 4.3, chloride 102, glucose 211, BUN 38, creatini ne 1.85, GFR 35 Labs: 11/26/2018: BMP: Sodium 138, potassium 4.3, chloride 101, glucose 235, calcium 8.6, BUN 33, creatinine 1.71, GFR 38 Labs:02/04/2019:CBC: WBC 6.04, RBC 3.175, hemoglobin 10, hematocrit 30, platelets 130 BMP: Sodium 142, potassium 4.3, chloride 107, glucose 126, BUN 35, creatinine 1.75, GFR 37 Labs: 02/15/2019: CMP: Sodium 135, potassium 4.9, chloride 100, glucose 205, BUN 47, creatin ine 2, GFR 32, AST 13, ALT 8, alk phos 80, total bili 0.7, albumin 3.5. Labs: 02/15/2019: CMP: Sodium 135, potassium 4.9, chloride 100, glucose 205, BUN 47, creatin ine 2.01, GFR 32, AST 13, ALT 8, alk phos 80, total bili 0.7, albumin 3.5. Labs: 04/01/2019: Renal function panel: Glucose 122, BUN 41, creatinine 1.68, phosphorus 3.5 , albumin 5, sodium 138, potassium 4.8, chloride 104, GFR 39. Magnesium: 2 parathyroid horm one: 72.6 uric acid: 7.4. CBC: WBC 4, RBC 2.74, hemoglobin 9, hematocrit 26.9, platelets 12 1 Labs: 08/01/2019: CMP: Sodium 138, potassium 5, chloride 104, glucose 134, BUN 76, creatini ne 2.6, GFR 23, AST 15, ALT 9, alk phos 68, total bili 0.7, albumin 3.8. Ammonia 34. CBC: WBC 4.5, RBC 2.61, hemoglobin 8.7, hematocrit 26.4, platelets 111 Labs: 01/08/2020: CMP: Sodium 137, potassium 4.7, glucose 152, BUN 72, creatinine 2.34, GFR 26, AST 18, ALT 11, alk phos 87, total bili 0.8, albumin 4.1. Iron: Iron 48.04, TIBC 366, p ercent sat 13.5, transferrin 254.53. Hgb A1C 6 (126). Ferritin 98.84. Vitamin B12 648.5. Folate 20. CBC: WBC 4.6, RBC 2.74, hemoglobin 9.2, hematocrit 27.4, platelets 100 Labs: 08/01/2019: CMP: Sodium 138, potassium 5, chloride 104, glucose 134, BUN 76, creatini ne 2.6, GFR 23, AST 15, ALT 9, alk phos 68, total bili 0.7, albumin 3.8. Ammonia 34. CBC: WBC 4.5, RBC 2.61, hemoglobin 8.7, hematocrit 26.4, platelets 111, INR 1.3 Labs: 09/26/2019: CMP: Sodium 134, potassium 4.7, chloride 101, glucose 160, BUN 75, creatini ne 2.31, GFR 27, AST 17, ALT 10, alk phos 82, total bili 0.9, albumin 3.9. BNP 833. CBC: W BC 4.5, RBC 2.65, hemoglobin 8.9, hematocrit 26.5, platelets 98 addendum: Labs: 11/28/2019: BMP: Sodium 135, potassium 5, chloride 99, glucose 134, BUN 87, creatinine 2.63 GFR 23. BNP 617. CBC: WBC 5.2, RBC 2.89, hemoglobin 9.9, hematocrit 29.4, platelets 103 ASSESSMENT & PLAN: He is performing a telephone visit with me today as discussed in HPI. He has problems as detailed below. Last pacer interrogation was performed in October and is detailed above, and shows a batte ry longevity of 9 years, and continues to be pacer dependent, and is in V paced rhythm with no atrial lead, but no episodes of high ventricular rates, and I reviewed this with him. Reports being considerably improved from when I saw him last, and his weight is down again, he reports his previous shortness of breath with exertion has resolved, and he now has good activity tolerance, as can work outside for 2 hours, and denies any central or peripheral e alycia, and his mentation seemed much improved. He is back on Eliquis 2.5 mg twice daily, and denies any bleeding, and until I see evidence of acute bleeding, I think that this should be continued given his 100% burden of atrial fi b with a very high [id number]- VASC score of 6. For his cardiac medications today, I have continued furosemide 40 mg twice daily, El iquis at 2.5 mg twice daily for stroke prevention, and have continued carvedilol 25 mg twice daily for heart failure, spironolactone 25 mg daily for heart failure, terazosin 10 mg da quique for hypertension, Pravachol 40 mg qhs for hyperlipidemia. I have ordered an updated BMP, BNP, and CBC to be performed to evaluate his renal func tion and anemia, I have asked that he get these labs performed in the next 2 days, and copie s to be sent to myself, as well as Dr. 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 I also referred him for sleep apnea evaluation with Dr. Dorsey at the [facility] sleep disorders clinic due to his now severe pulmonary hypertension, he has not followed up on thi s due to pandemic restrictions. He also has an appointment with his just Dr. Jade on March 09. He states his local PCP is Rosa Elena Goodrich, but I am unable to get her contact informat fiona , so I will send copy of my note to Dr. Brito, and well as Dr. Gilman . 1. Cardiac pacemaker in situ 2. Permanent atrial fibrillation 3. Chronic diastolic heart failure (HCC) 4. Dilated aortic root (HCC) 5. Hypertension goal BP (blood pressure) < 140/80 6. Mixed hyperlipidemia 7. 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 Moderate tricuspid regurgitation 9. History of stroke 10. On apixaban therapy 11. Stage 4 chronic kidney disease (HCC) 12. Type 2 diabetes mellitus without complication, without long-term current use of insulin (HCC) 13. 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 Risk factors for obstructive sleep apnea No orders of the defined types were placed in this encounter. The following portions of the patient's history were personally reviewed by me and updated as appropriate: EKG tracings, other specialty provider and PCP notes,any Hospital admission and discharge summaries, any ER records , current and previous cardiac testing and procedure reports and d rowena, home heart rate and blood pressure log, Medications reviewed with him over the phone allergies, current medications.labs Family history, past medical history, past social history, past surgical history. Problem list. This encounter was dictated with voice recognition software and may contain inadvertent rec ognition errors. Portions of this chart may have been copied from previous notes for continuity of care purp nettie [facility] Cardiology 11/28/2019 Ubaldo gregory in this encounter Plan of Treatment +--------+ [...] [place] | | | | | | [address] | | | | | | | | +--------+ + + + + | 02/09/ | Procedure | Cardiology | | | | 2019 | visit | | | | +--------+ + + + + | 03/09/ | Office | Nephrology | Isiah Jade MD | | | 2019 | Visit | | [address] [facility] | | | | | | [address] [place] | | | | | | [address] | | | | | | | | +--------+ + + + + documented as of this encounter Procedures + +--------+ + + + | Procedure Name | Priori | Date/Time | Associated Diagnosis | Comments | | | ty | | | | + +--------+ + + + | LABS - EXTERNAL SCAN | | 11/28/2019 | | Results for this | | | | 12:00 AM | | procedure are in the | | | | PDT | | results section. | + +--------+ + + + documented in this encounter Results LABS - EXTERNAL SCAN (11/28/2019 12:00 AM PDT) + + + | Narrative | Performed At | + + + | Ordered by an | | | unspecified provider. | | + + + documented in this encounter Visit Diagnoses + + | Diagnosis | + + | Cardiac pacemaker in situ - Primary | + + | Permanent atrial fibrillation (HCC) Atrial fibrillation | + + | Chronic diastolic heart failure (HCC) Chronic diastolic heart failure | + + | Dilated aortic root (HCC) Aortic ectasia, unspecified site | + + | Hypertension goal BP (blood pressure) < 140/80 Unspecified essential hypertension | + + | Mixed hyperlipidemia | + + | Moderate to severe pulmonary hypertension (HCC) Other chronic pulmonary heart | | diseases | + + | Moderate tricuspid regurgitation Diseases of tricuspid valve | + + | History of stroke Transient ischemic attack (TIA), and cerebral infarction without | | residual deficits | + + | On apixaban therapy | + + | Stage 4 chronic kidney disease (HCC) | + + | Type 2 diabetes mellitus without complication, 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) | + + | 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
--- OUTSIDE RECORDS SUMMARY | ~2020-01-01 | XMS | Encounter Summary ---
Demographics + + + | Address | [address] | | | [place] [address] | + + + | Home Phone | | + + + | Preferred Language | Unknown | + + + | Marital Status | | + + + | Gnosticism Affiliation | 1001 | + + + | Race | Unknown | + + + | Ethnic Group | Unknown | + + + Author + + + | Author | [facility] | | | and [place] | + + + | Organization | [facility] | | | [...] [place] | | | | | [address] | | + + + + + | Deanna Lawson | ECON | Unknown | | + + + + + Care Team Providers + +------+ + | Care General Matcher Name | Role | Phone | + [...] + + | 12/28/ | Anesthesia | [facility] | Maco Wolf, | | | 2019 | Event | [facility] | CENTER MANAGER [address] | | | | | INTRA [address] | [place] [address] | | | | | [address] [place] | [phone] | | | | | [address] | | | | | | [phone] | | | +--------+ + + + + Anesthesia Record + + + + + | Procedure Name | Responsible | Anesthesia Start | Anesthesia Stop Time | | | Anesthesiologist | Time | | + + + + + | VANDANA (N/A Marilee) | Maco Wolf CRNA | 12/29/19901 | 12/29/19 0946 | + + + + + +----+---+ + + | Da | T | Event | Comment | | te | i | | | | | m | | | | | e | | | +----+---+ + + | 05 | 0 | | | | /1 | 9 | | | | 0/ | 0 | | | | 20 | 1 | | | | 20 | | | | +----+---+ + + | | 0 | An Start | Reassessment prior to anesthesia induction/procedure. | | | 9 | | | | | 0 | | | | | 2 | | | +----+---+ + + | | 0 | An | | | | 9 | Induction | | | | 0 | | | | | 5 | | | +----+---+ + + | | 0 | Anesthesia | | | | 9 | Ready | | | | 0 | | | | | 6 | | | +----+---+ + + | | 0 | First | | | | 9 | Inc/Proc St | | | | 0 | | | | | 7 | | | +----+---+ + + | | 0 | an stop | | | | 9 | data | | | | 4 | | | | | 6 | | | +----+---+ + + | | 0 | An Stop | Patient handed off to recovery nurse. | | | 4 | | | | | 6 | | | +----+---+ + + +------+ | Meds | +------+ + +--------+ | Name | Total | + +--------+ | lidocaine 2% | 40 mg | + +--------+ | propofol | 200 mg | + +--------+ | ePHEDrine | 10 mg | + +--------+ | glucagon | 1 mg | + +--------+ | NS (Infusion) | 500 mL | + +--------+ + + | Name | + + | N2O Flow Rate (L/Min) | + + | O2 Flow Rate (L/Min) | + + | Insp O2 | + + | Exp N2O | + + | Air Flow Rate (L/Min) | + + | Secondary O2 Flow Rate | + + + + | No blood administrations on file. | + + +--------+ + + + | Type | Details | Placement | Removal | +--------+ + + + | Pacema | permanent | 12/22/19 1213 by | | | ker | | | | +--------+ + + + | Wound | 12/21/19; 2054; Right; lower, | 12/21/192054 by | | | | posterior; arm; abrasion | Lise Rosario RN | | +--------+ + + + | Wound | 12/22/19; 1024; Incision; Right; | 12/22/19 1024 by | | | | hip | Winsome Nance | | | | | JIAN Rios | | +--------+ + + + | Wound | 12/25/19; 1050; N; Other; Right; | 12/25/19 1050 by | | | | hip; blister(s), skin tear | Denise Lebron RN | | +--------+ + + + | Wound | 12/25/19; 1999; Other (redness); | 12/25/191999 by Lawanda | | | | Right; heel; other (see comments) | Savana Bowdne RN | | | | (redness) | | | +--------+ + + + | Wound | 12/28/19; 2029; Pressure inj; | 12/28/192029 by | | | | Right; sacral spine | Jada | | | | | Salma, | | | | | Communicable Disease Specialist | | +--------+ + + + | Urethr | 12/24/19; 1240; indicated for | 12/24/19 1240 by | 12/31/19 1140 by | | al | critically ill with need for | Saritha Tavarez, | Liz Washburn, | | Jayesh | accurate I/O; Patient/family | Communicable Disease Specialist | RN | | er | educated about Indication/CAUTI | | | | | prevention; Catheter securement | | | | | applied; indwelling double lumen | | | | | catheter; 16; None; 1; 10; 10; | | | | | 12/31/19; 1140 | | | +--------+ + + + | Periph | 12/27/19; 2003; Left; Posterior | 12/27/192003 by | 12/30/19 0600 by | | eral | (dorsal); Forearm; | Norma Dickey RN | Leatha Mayer, | | IV | [id number] catheter system; | | RN | | | 20 gauge; 0; tolerated well; | | | | | 12/30/19; 0600 | | | +--------+ + + + | Periph | 12/27/19; 2042; Right; | 12/27/192042 by Lawanda | 12/30/19 1350 by | | eral | Antecubital; 20 gauge; 12/30/19; | Savana Bowden, RN | Leatha Mayer, | | IV | 1350 | | RN | +--------+ + + + documented in [...] | Dina Sanchez DO | | | 2020 | Visit | | [address] | | | | | | [place] | | | | | | [address] | | | | | | | | +--------+ + + + + | 02/09/ | Procedure | Cardiology | | | | 2019 | visit | | | | +--------+ + + + + | 03/09/ | Office | Nephrology | Isiah Jade MD | | | 2019 | Visit | | [address] [facility] | | | | | | [facility] | | | | | | [address] | | | | | | | | +--------+ + + + + documented as of this encounter Visit Diagnoses Not on filedocumented in this encounter Administered Medications + +--------+ +-------+------+------+ | Medication Order | MAR | Action | Dose | Rate | Site | | | Action | Date | | | | + +--------+ +-------+------+------+ | ePHEDrine in saline 5 mg/mL IV | Given | 12/29/19 | 10 mg | | | | syringe Intravenous, PRN, | | 20 9:24 | | | | | Starting 12/29/19 at 0924, | | AM PDT | | | | | Anesthesia Intra-op | | | | | | + +--------+ +-------+------+------+ +---+---+ | | | +---+---+ + +-------+ +--------+---+---+ | glucagon (GLUCAGEN) injection | Given | 12/29/19 | 0.5 mg | | | | Intravenous, PRN, Starting Sun | | 20 9:31 | | | | | 12/29/19 at 0922, Anesthesia | | AM PDT | | | | | Intra-op | | | | | | + +-------+ +--------+---+---+ +-------+ +--------+---+---+ | Given | 12/29/19 | 0.5 mg | | | | | 20 9:22 | | | | | | AM PDT | | | | +-------+ +--------+---+---+ +---+---+ | | | +---+---+ + +-------+ +-------+---+---+ | lidocaine (PF) 2% injection | Given | 12/29/19 | 40 mg | | | | Intravenous, PRN, Starting Sun | | 20 9:05 | | | | | 12/29/19 at 0905, Anesthesia | | AM PDT | | | | | Intra-op | | | | | | + +-------+ +-------+---+---+ +---+---+ | | | +---+---+ + +-------+ +-------+---+---+ | propofol (DIPRIVAN) injection | Given | 12/29/19 | 40 mg | | | | Intravenous, PRN, Starting Sun | | 20 9:27 | | | | | 12/29/19 at 0905, Anesthesia | | AM PDT | | | | | Intra-op | | | | | | + +-------+ +-------+---+---+ +-------+ +-------+---+---+ | Given | 12/29/19 | 30 mg | | | | | 20 9:23 | | | | | | AM PDT | | | | +-------+ +-------+---+---+ | Given | 12/29/19 | 20 mg | | | | | 20 9:20 | | | | | | AM PDT | | | | +-------+ +-------+---+---+ +---+---+ | | | +---+---+ + +---------+ +---+---+---+ | sodium chloride 0.9% (NS) | New Bag | 12/29/19 | | | | | infusion Intravenous, CONTINUOUS | | 20 9:02 | | | | | PRN, Starting 12/29/19 at | | AM PDT | | | | | 0902, Anesthesia Intra-op | | | | | | + +---------+ +---+---+---+ +---+---+ | | | +---+---+ documented in this encounter"
--- OUTSIDE RECORDS SUMMARY | ~2020-01-01 | XMS | Encounter Summary ---
Demographics + + + | Address | [address] | | | [place] [address] | + + + | Home Phone | | + + + | Preferred Language | Unknown | + + + | Marital Status | | + + + | Buddhism Affiliation | 1001 | + + + [...] [place] | | | | | [address] | | + + + + + | Deanna Lawson | ECON | Unknown | | + + + + + Care Team Providers + +------+ + | Care Manager Appointment Name | Role | Phone | + +------+ + | Barbara Gilman MD | PCP | | + +------+ + Encounter Details +--------+ + + + + | Date | Type | Department | Care Team | Description | +--------+ + + + + | 09/02/ | Orders Only | [facility] | Enoch Thompson, | | | 2019 | | CARDIOLOGY [place] | [address] | | | | | [address] | [place], [place] | | | | | [place], [place] | [address] | | | | | [address] | | | | | | [phone] | | | +--------+ + + + [...] | 2019 | Visit | | [address] | | | | | | [place] | | | | | | [address] | | | | | | | [...] [place] | | | | | | [address] | | | | | | | [...]
--- OUTSIDE RECORDS SUMMARY | ~2020-01-01 | XMS | Encounter Summary ---
Demographics + + + | Address | [address] | | | [place] [address] | + + + | Home Phone [...] [place] | | | | | [address] | | + + + + + | Deanna Lawsno | ECON | Unknown | | + + + + + Care Team Providers + +------+ + | Care Fish Bait Picker Name | Role | Phone | + +------+ + | Barbara Gilman MD | PCP | | + +------+ + Reason for Visit + + + | Reason | Comments | + + + | Device Check | [place] pacemaker in office device check w/Jay | | (In-office) | | + + + Encounter Details +--------+ + + + + | Date | Type | Department | Care Team | Description | +--------+ + + + + | 05/07/ | Procedure | [facility] | Enoch Thompson, | Cardiac pacemaker in | | 2019 | visit | CARDIOLOGY [place] | MD [address] | situ (Primary Dx); | | | | [address] | [place] | Permanent atrial | | | | [place] | [address] | fibrillation (HCC); | | | | [address] | | Chronic diastolic | | | | [phone] | | heart failure (HCC) | +--------+ [...] | | | | | [place] | | | | | | [address] | | | | | | | | +--------+ + + + + | 02/09/ | Procedure | Cardiology | | | | 2019 | visit | | | | +--------+ + + + + | 03/09/ | Office | Nephrology | Isiah Jade MD | | | 2019 | Visit | | [address] [place] | | | | | | [address] [place] | | | | | | [address] | | | | | | | [...] | | scheduled encounter for additional details. parts technician: Thi Burch RN | | | | | |See device data attached to scheduled encounter for additional | | |details. | | | | | |parts technician: Thi Burch RN | | | | [...]
--- OUTSIDE RECORDS SUMMARY | ~2020-01-01 | XMS | Encounter Summary ---
Demographics + + + | Address | [address] | | | [place] [address] | + + + | Home Phone [...] | Author | [facility] | | | and [place] | + [...] [place] | | | | | [address] | | + + + + + | Deanna Lawson | ECON | Unknown | | + + + + + Care Team Providers + +------+ + | Care Capital Equipment Specialist Name | Role | Phone | + +------+ + | Barbara Gilman MD | PCP | | + +------+ + Reason for Visit +---------+ + | Reason | Comments | +---------+ + | Testing | | +---------+ + Encounter Details +--------+ + + + + | Date | Type | Department | Care Team | Description | +--------+ + + + + | 12/01/ | Telephone | [facility] | Charlee Oswald | Testing | | 2020 | | CARDIOLOGY [place] | [address] | | | | | [address] | [address] [address] [address] | | | | | [address] | [place] [address] | | | | | [place], [place] | [phone] | | | | | [address] | | | | | | [phone] | | | +--------+ + + + [...] [place] | | | | | | [address] | | | | | | | | +--------+ + + + + | 02/09/ | Procedure | Cardiology | | | | 2019 | visit | | | | +--------+ + + + + | 03/09/ | Office | Nephrology | Isiah Jade MD | | | 2019 | Visit | | [address] [facility] | | | | | | [address] [place] | | | | | | [address] | | | | | | | [...]
--- OUTSIDE RECORDS SUMMARY | ~2020-01-01 | XMS | Encounter Summary ---
Demographics + + + | Address | [address] | | | [place] [address] | + + + | Home Phone | | + + + | Preferred Language | Unknown | + + + | Marital Status | | + + + | Lutheran Affiliation | 1001 | + + + [...] [place] | | | | | [address] | | + + + + + | Deanna Lawson | ECON | Unknown | | + + + + + Care Team Providers + +------+ + | Care Electric Motor Repair Supervisor Name | Role | Phone | + +------+ + | Barbara Gilman MD | PCP | | + +------+ + Encounter Details +--------+ + + + + | Date | Type | Department | Care Team | Description | +--------+ + + + + | 08/08/ | Orders Only | [facility] | Charlee Oswald | | | 2017 | | CARDIOLOGY [place] | [address] | | | | | [address] | [address] | | | | | [address] | [place] [address] | | | | | [place] | [phone] | | | | | [address] | | | | | | [phone] | | | +--------+ + + + [...] [place] | | | | | | [address] | | | | | | | [...] [place] | | | | | | [address] | | | | | | | [...]
--- OUTSIDE RECORDS SUMMARY | ~2020-01-01 | XMS | Encounter Summary ---
Demographics + + + | Address | [address] | | | [place] [address] | + + + | Home Phone | | + + + | Preferred Language | Unknown | + + + | Marital Status | | + + + | Tenriism Affiliation | 1001 | + + + [...] [place] | | | | | [address] | | + + + + + | Deanna Lawson | ECON | Unknown | | + + + + + Care Team Providers + +------+ + | Care Paper Bag Maker Name | Role | Phone | + [...] Provider Unknown | | | | | [place], [place] | [phone] | | | | | [address] | | | | | | [phone] | | | +--------+ + + + [...] [place] | | | | | | [address] | | | | | | | | +--------+ + + + + | 02/09/ | Procedure | Cardiology | | | | 2019 | visit | | | | +--------+ + + + + | 03/09/ | Office | Nephrology | Isiah Jade MD | | | 2019 | Visit | | [address] [facility] | | | | | | [address] [place] | | | | | | [address] | | | | | | | [...]
--- OUTSIDE RECORDS SUMMARY | ~2020-01-01 | XMS | Encounter Summary ---
Demographics + + + | Address | [address] | | | [place] [address] | + + + | Home Phone [...] [place] | | | | | [address] | | + + + + + | Deanna Lawson | ECON | Unknown | | + + + + + Care Team Providers + +------+ + | Care Atlassian Administrator Name | Role | Phone | + [...] + + | 12/28/ | Surgery | [facility] | Lamont Hernandez MD | EGD | | 2020 | | [facility] | [address] | | | | | INTRA [address] | [place] | | | | | [address] [place] | [address] | | | | | [address] | [phone] | | | | | [phone] | | | +--------+---------+ + + + [...] + + documented in this encounter Discharge Instructions Instructions Marycarmen Judge ARNP - [...] + documented as of this encounter Progress Deanna Aviles RN - 01/01/2020 11:45 AM PDTWound care RN came to see pt to follow up on his hip incision. RN states PA has changed previously saturated dressing and pt is DC'ing home; ride is waiting downstairs. Deanna Doe RN, CMSRN, [facility] Inpatient Wound Ostomy Care [phone] 01/01/2020 11:46 AM arcia-Freeman, Savana [place] RN - 01/01/2020 6:34 AM [...] BUNCREARATIO 25 12/31/2019 PTH 72.57 (A) 04/01/2019 [id number] 25.2 (L) 12/27/2019 CALCIUM 8.5 12/31/2019 PHOS [...] been following up with ENEDINA mena in [place]. He has unrecovered acute kidney injury and a higher baseline creatinine. At this time there is no clinical uremia, refractory volume overload, refractory acidosis, refractory hyperkalemia and no urgent indication of starting CONSTRUCTION MANAGEMENT INSTRUCTOR. Neither is there an indication for diagnostic [...] Incentive spirometry. Transfuse Prn. No indication for CONSTRUCTION MANAGEMENT INSTRUCTOR for now. Await renal recovery. I discussed [...] was completed later after rounds. Dictation software, DealerRater, was used which may contain error for [...] but not limited to potential need for CONSTRUCTION MANAGEMENT INSTRUCTOR . This is a patient with multiple [...] Code Regino Greene MD 12/31/2019 11:38 AM Xavier, ENEDINA Yoo - 12/31/2019 10:58 AM PDT . ORTHOPEDIC [...] injuries: see wound RN note for treatment. [facility] ed, continue wound care at swing bed, send with extra dressing supplies. *Metabolic bone disorder: elevated PTH and phosphorus. Treatment per structural steel engineer (see thei r note). Subjective No chest [...] pt. PURVI Goodrich RN CWON 12/30/19 14:53 Jerry Alcantar MD - 12/30/2019 1:46 PM PDT Service: Hospitalist Daily Progress Note Andres Guzmán 89 y.o. : 1930 SEX: male PCP: Barbara Gilman MD Hospital Day: LOS: 9 SUBJECTIVE Patient Summary: Patient is an 89-year-old male with past medical history of HTN, DM Type 2, CKD Stage III w ith baseline creatinine 1.7 who was admitted as a transfer from [facility] due t o a mechanical fall sustaining [...] placement and he was accepted by [facility] in [place], [place] for rehabilitation purposes. Hospital stay was [...] PRN insulin lispro, 0-12 Units, Subcutaneous, TID [START ON 12/31/2019] levoFLOXacin, 250 mg, Oral, [...] Medications Current Facilty-Administered PRN Medications Ordered in [facility] Medication Dose Route Frequency Provider Last [...] mg 12.5 mg Intravenous Q6H PRN Jerry Nathen Chino MD 12.5 mg at 12/29/19 1115 [...] but remains week, he is accepted at [facility] in [place] with discharge plans tomorrow for rehabilit ation [...] discharge plans to Sw[facility] Bed Program in [facility] tomorrow. DVT prophylaxis with SCD's only due to risks of bleeding. Discharge plans tomorrow to [facility] in [place], [place] for rehabi litation. Called his daughter Ms. Huerta and left a message with updated information at phone number [phone]. Jerry Chino MD 12/30/2019 tramya, DALILA Keys - 12/30/2019 12:35 PM PDTFormatting of this note might be different from the [facility] Service: Gastroenterology Consult Progress Note Hospital Day: LOS: 9 days SUBJECTIVE Patient Summary: This is an 89-year-old male with multiple medical problems and a his tory of hypertension, diabetes, CKD stage III who was transferred from [facility] t o a fall and he sustained [...] motor deficits. PSYCHIATRIC: Appropriate, affect appears normal [facility] Gastroenterology Patient Name: Andres Guzmán Procedure Date: [...] physician, the nurse, the anesthesiologist and the cath laboratory technician in the pre-procedure area in the [...] successful. Thermal coagulation with Gold probe 7 [place] Islander x 5 pulses was successful with hemostasis. [...] 12/29/2019 8:36 AM Number of Addenda: 0 [facility] DATA Lab Results Component Value Date WBC [...] ll with any questions. Florina Cantu PA-C [facility] Gastroenterology 12/30/2019 Associated attestation - Lamont Hernandez MD - 12/31/2019 2:17 PM [id number] male with GI bleeding due to duodenal ulcer with visible vessel. The ulcer and visible vessel were tr eated with injection and gold probe thermal coagulation. The patient was seen and examined by me personally. The case was discussed with the physician's geological survey field assistant and I agree with the assessment and p tim as outlined in the note. Continue PPI IV infusion for total of 72 hours and then when patient is discharged he must be on twice daily PPI for 8 weeks. Resume Eliquis in 1 week. Lamont Hernandez MD Gastroenterology staffSmith, ENEDINA Yoo - 12/30/2019 11:05 AM PDTFormatting of th [...] status. Disposition: Plan to discharge tomorrow, to Group Home Facility, once medically stable and cleared by [...] BUNCREARATIO 23 12/30/2019 PTH 72.57 (A) 04/01/2019 [id number] 25.2 (L) 12/27/2019 CALCIUM 8.6 12/30/2019 PHOS [...] been following up with ENEDINA mena in [place]. That had improved with nonoliguric state but now seems to have leveled off at around 3 and this may be reflection of unrecovered acute kidney injury and a higher baseline creatinine. At this time there is no clinical uremia, refractory volume overload, refractory acidosis, refractory hyperkalemia and no urgent indication of starting CONSTRUCTION MANAGEMENT INSTRUCTOR. Neither is there an indication for diagnostic [...] Incentive spirometry. Transfuse Prn. No indication for CONSTRUCTION MANAGEMENT INSTRUCTOR for now. Await renal recovery. I discussed [...] was completed later after rounds. Dictation software, DealerRater, was used which may contain error for [...] but not limited to potential need for CONSTRUCTION MANAGEMENT INSTRUCTOR . This is a patient with multiple [...] BUNCREARATIO 30 12/29/2019 PTH 72.57 (A) 04/01/2019 [id number] 25.2 (L) 12/27/2019 CALCIUM 8.7 12/29/2019 PHOS [...] He has been following up with ENEDINA mnea in [place]. That seems to be improving with nonoliguric state and small reduction in creatinine. At this time there is no clinical uremia, refractory volume overload, refractory acidosis, refractory hyperkalemia and no urgent indication of starting CONSTRUCTION MANAGEMENT INSTRUCTOR. Neither is there an indication for diagnostic [...] Incentive spirometry. Transfuse Prn. No indication for CONSTRUCTION MANAGEMENT INSTRUCTOR for now. Await renal recovery. I discussed [...] was completed later after rounds. Dictation software, DealerRater, was used which may contain error for [...] but not limited to potential need for CONSTRUCTION MANAGEMENT INSTRUCTOR . acetaminophen 1,000 mg Oral 3 times [...] who was admitted as a transfer from [facility] due t o a mechanical fall sustaining [...] finding placement and he was accepted by [facility] bed [facility] in [place], [place] for rehabilitation purposes. Hospita l stay [...] but needs rehabilitation, he is accepted by [facility] in [place], [place] with discharge plans early next weeks [...] another 1 to 2 to SNF in [place], [place] if remains stable and improve d. Called his daughter Ms. Huerta and updated her about plans at phone number [phone]. Jerry Chino MD 12/29/2019 Norma Sarabia RN [...] BUNCREARATIO 28 12/28/2019 PTH 72.57 (A) 04/01/2019 [id number] 25.2 (L) 12/27/2019 CALCIUM 8.5 12/28/2019 PHOS [...] been following up with ENEDINA mena in [place]. That seems to be improving with nonoliguric state and small reduction in creatinine. At this time there is no clinical uremia, refractory volume overload, refractory acidosis, refractory hyperkalemia and no urgent indication of starting CONSTRUCTION MANAGEMENT INSTRUCTOR. Neither is there an indication for diagnostic [...] Incentive spirometry. Transfuse Prn. No indication for CONSTRUCTION MANAGEMENT INSTRUCTOR for now. Await renal recovery. I discussed [...] was completed later after rounds. Dictation software, DealerRater, was used which may contain error for [...] but not limited to potential need for CONSTRUCTION MANAGEMENT INSTRUCTOR . acetaminophen 1,000 mg Oral 3 times [...] DALILA Grant - 12/28/2019 10:49 AM PDT [facility] Service: Orthopedic Surgery Progress Note Hospital Day: [...] DALILA Peralta has created this entry using [email or web address] e and [employer] macros. The entry has been reviewed and [...] who was admitted as a transfer from [facility] due t o a mechanical fall sustaining [...] deteriorating renal functions his discharge was linh fermin. PT/OT services recommended IPR but Dr. Reed did not have beds and recommended SNF for rehabilitation. Case management worked in finding placement and he was accepted by [facility] in [place], [place] [facility] purposes[facility] also complicated by episodes [...] Medications Current Facilty-Administered PRN Medications Ordered in [facility] Medication Dose Route Frequency Provider Last [...] mg 8.6 mg Oral BID PRN Anders D Soto, PA-C Allergy: Allergies Allergen Reactions Codeine Nausea [...] 7.8 requiring 2 additional units of PRBC middleotn sfusions. Staff reported episodes of black tarry [...] making slow progress, he is accepted by [facility] in [place], [place] with discharge plans possib ly early [...] 1 to 2 to a SNF in [place], [place] when renal functions are st able and cleared by Nephrology services. Also called his daughter Ms. Huerta and updated her a bout plans at phone number [phone]. Jerry Chino MD 12/28/2019 Ghazal Ferrer COTA [...] been following up with ENEDINA mena in [place]. That seems to be improving with nonoliguric state and small reduction in creatinine. At this time there is no clinical uremia, refractory volume overload, refractory acidosis, refractory hyperkalemia and no urgent indication of starting CONSTRUCTION MANAGEMENT INSTRUCTOR. Neither is there an indication for diagnostic [...] Incentive spirometry. Transfuse Prn. No indication for CONSTRUCTION MANAGEMENT INSTRUCTOR for now. Await renal recovery. I discussed [...] was completed later after rounds. Dictation software, DealerRater, was used which may contain error for [...] but not limited to potential need for CONSTRUCTION MANAGEMENT INSTRUCTOR . acetaminophen 1,000 mg Oral 3 times [...] status. Disposition: Plan to discharge Monday, to Group Home Facility, once medically stable a nd cleared [...] Net -400 ml . Treatment plan: per structural steel engineer; slowly improving. *Blood pressure: labile; See VS [...] disorder: elevated PTH and phosphorus. Treatment per structural steel engineer (see thei r note). Subjective No chest [...] who was admitted as a transfer from [facility] due t o a mechanical fall sustaining [...] mg 8.6 mg Oral BID PRN Anders Mikey Soto PA-C Allergy: Allergies Allergen Reactions Codeine [...] trength and mobility. He is accepted by [facility] in [place], [place] and discharge is delayed due to [...] to 3 days to a SNF in [place], [place] when renal functions a re stable and cleared by Nephrology services. Jerry Chino MD 12/27/2019 Linda Montalvo RN - 12/26/2019 5:09 PM PDT [facility] Service: Wound Care Consult Note Hospital Day: [...] PDT Service: Hospitalist Daily Progress Note Andres Godinezdemetrioprem 89 y.o. : 1930 SEX: male PCP: Barbara Gilman MD Hospital Day: LOS: 5 SUBJECTIVE Patient Summary: Patient is an 89-year-old male with past medical history of HTN, DM Type 2, CKD Stage III w ith baseline creatinine 1.7 who was admitted as a transfer from [facility] due t o a mechanical fall sustaining [...] placement is recommended. 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 Huerta and the at phone number [phone] Code Status: Full Code Regino Greene MD [...] status. Disposition: Plan to discharge Monday, to Group Home Facility, once medically stable a nd cleared [...] lab follow-up and treatment per hospitalist and structural steel engineer. *Blood pressure: hypotensive; See VS for BP trending. Treatment plan: treatment per hospit alist and structural steel engineer *Hospital acquired pneumonia - on IV Zosyn, [...] iron, humalog Anthropometrics Pt reports stable wt hat trimmer. Current Weight: 63.5 kg (140 lb) Admit [...] Dr. Huerta and the at phone number [phone] Code Status: Full Code Regino Greene MD [...] any conversation with family members today. Inpatient occupational rehabilitation aide. Code Status: Full Code Regino Greene MD [...] status. Disposition: Plan to discharge Monday, to may require post acute rehab, PT eval pending, [...] Code Regino Greene MD 12/22/2019 10:00 PM Gallito Espitia RN - 12/22/2019 5:35 PM PDTEnd of shift chart check completeElectronica lly signed by Miya Wilson RN at 12/22/2019 5:35 PM PDTKetan Kelley V PT - 12/22/2019 1:14 PM PDTFormatting of this note might be different from the origi nal. 12/22/19 1314 PT Visit Summary PT Visit Type Missed Visit (treatment on hold) Next Visit Information 12/21; PT vaelrieal PT Visit Summary Pt's H&H continuing to decrease, now 7.1, 21, will hold until this has res olved ndria Alston [facility] - 12/22/2019 12:36 PM PDTClinical Pharmacy Note: [...] [place] | | | | | | [address] | | | | | | | | +--------+ + + + + | 02/09/ | Procedure | Cardiology | | | | 2019 | visit | | | | +--------+ + + + + | 03/09/ | Office | Nephrology | Isiah Jade MD | | | 2019 | Visit | | [address] [facility] | | | | | | [address] | | | | | | [address] | | | | | | | | +--------+ + + + + + + +--------+ + + | Name | Type | Priori | Associated Diagnoses | Order Schedule | | | | ty | | | + + +--------+ + + | POCT Glucose | Point of | Routin | | Every 6hr until | | | Care | e | | discontinued | | | Testing | | | starting 12/22/2019 | + + +--------+ + + | POCT Glucose | Point of | Routin | | As Needed until | | | Care | e | | discontinued | | | Testing | | | starting 12/21/2019 | + + +--------+ + + | Oxygen Therapy | Respiratory | Routin | | Until Discontinued | | | Care | e | | until discontinued | | | | | | starting 12/22/2019 | + + +--------+ + + | C3 and C4 | Lab | Routin | | AM Lab Morning Lab | | | | e | | for 1 Days starting | | | | | | 12/25/2019 until | | | | | | 12/25/2019 | + + +--------+ + + | SANDRA Screen, Qual, | Lab | Routin | | AM Lab Morning Lab | | Reflex | | e | | for 1 Days starting | | | | | | 12/25/2019 until | | | | | | 12/25/2019 | + + +--------+ + + | CBC with | Lab | Routin | | Daily until | | Differential | | e | | discontinued | | | | | | starting 12/27/2019, | | | | | | 5 completed | + + +--------+ + + | Oxygen Therapy | Respiratory | Routin | | Until Discontinued | | | Care | e | | until discontinued | | | | | | starting 12/29/2019 | + + +--------+ + + | POCT Glucose | Point of | Routin | | As Needed for 8 | | | Care | e | | Occurrences starting | | | Testing | | | 12/29/2019 | + + +--------+ + + | Basic Metabolic | Lab | Routin | | AM Lab Morning Lab | | Panel | | e | | for 3 Days starting | | | | | | 12/31/2019 until | | | | | | 01/02/2020, 2 | | | | | | completed | + + +--------+ + + documented [...] + +--------+ + + + | *TERMED* ND UPPER GI | Routin | 12/29/2019 | [...] Testing | 65 - 99 mg/dL | [facility] | | | POC | performed at [facility];[address] | | LABORATORY | | | | [address];[place], [place] | | | | | | [address] | | | | + + + + + + + + | Specimen | + + | | + + + + + + + | Performing | Address | City/State/Zipcode | Phone Number | | Organization | | | | + + + + + | [facility] | [address] | [place] [address] | [phone] | + + + + + POC Glucose (01/01/2020 6:29 AM PDT) + + + + + + | Component | Value | Ref Range | Performed | Pathologist | | | | | At | Signature | + + + + + + | Glucose, | 143 (H)Comment: Testing | 65 - 99 mg/dL | [facility] | | | POC | performed at [facility];[address] | | LABORATORY | | | | [address];[place], [place] | | | | | | [address] | | | | + + + + + + + + | Specimen | + + | | + + + + + + + | Performing | Address | City/State/Zipcode | Phone Number | | Organization | | | | + + + + + | [facility] | [address] | [place] [address] | [phone] | + + + + + Basic [...] 23 (L)Comment: GFR <60: | >60 | [facility] | | | GFR | CHRONIC [...] | | | | performed at [facility];[address] | | | | | | [facility];[place], [place] | | | | | | [address] | | | | + + + + + + + + | Specimen | + + | Blood | + + + + + + + | Performing | Address | City/State/Zipcode | Phone Number | | Organization | | | | + + + + + | [facility] | [address] | [place] [address] | [phone] | + + + + + CBC [...] | | | Absolute | performed at [facility];[address] | [address] | LABORATORY | | | | [address];[place], [place] | | | | | | [address] | | | | + + + + + + + + | Specimen | + + | Blood | + + + + + + + | Performing | Address | City/State/Zipcode | Phone Number | | Organization | | | | + + + + + | [facility] | [address] | [place] [address] | [phone] | + + + + + POC Glucose (12/31/2019 9:02 PM PDT) + + + + + + | Component | Value | Ref Range | Performed | Pathologist | | | | | At | Signature | + + + + + + | Glucose, | 137 (H)Comment: Testing | 65 - 99 mg/dL | [facility] | | | POC | performed at [facility];[address] | | LABORATORY | | | | [address];[place] | | | | | | [address] | | | | + + + + + + + + | Specimen | + + | | + + + + + + + | Performing | Address | City/State/Zipcode | Phone Number | | Organization | | | | + + + + + | [facility] | [address] | [place] [address] | [phone] | + + + + + POC Glucose (12/31/2019 5:31 PM PDT) + + + + + + | Component | Value | Ref Range | Performed | Pathologist | | | | | At | Signature | + + + + + + | Glucose, | 196 (H)Comment: Testing | 65 - 99 mg/dL | [facility] | | | POC | performed at [facility];[address] | | LABORATORY | | | | [address];[place] | | | | | | [address] | | | | + + + + + + + + | Specimen | + + | | + + + + + + + | Performing | Address | City/State/Zipcode | Phone Number | | Organization | | | | + + + + + | [facility] | [address] | [place] [address] | [phone] | + + + + + POC [...] | | | POC | performed at [facility];[address] | | LABORATORY | | | | [address];[place], [place] | | | | | | [address] | | | | + + + + + + + + | Specimen | + + | | + + + + + + + | Performing | Address | City/State/Zipcode | Phone Number | | Organization | | | | + + + + + | [facility] | [address] | [place] [address] | [phone] | + + + + + POC [...] | | | POC | performed at [facility];[address] | | LABORATORY | | | | [address];[place], [place] | | | | | | [address] | | | | + + + + + + + + | Specimen | + + | | + + + + + + + | Performing | Address | City/State/Zipcode | Phone Number | | Organization | | | | + + + + + | [facility] | [address] [facility] | [place] [address] | [phone] | + + + + + Basic [...] W | | | | | | [facility], | | | | | | [place] [address] | | | | + + + + + + + + | Specimen | + + | Blood | + + + + + + + | Performing | Address | City/State/Zipcode | Phone Number | | Organization | | | | + + + + + | [facility] | [address] | [place] [address] | [phone] | + + + + + CBC [...] | | | Absolute | performed at [facility], [address] | [address] | LABORATORY | | | | [address], | | | | | | [place] [address] | | | | + + + + + + + + | Specimen | + + | Blood | + + + + + + + | Performing | Address | City/State/Zipcode | Phone Number | | Organization | | | | + + + + + | [facility] | [address] | [place] [address] | [phone] | + + + + + POC [...] | | | POC | performed at [facility];[address] | | LABORATORY | | | | [address];[place], [place] | | | | | | [address] | | | | + + + + + + + + | Specimen | + + | | + + + + + + + | Performing | Address | City/State/Zipcode | Phone Number | | Organization | | | | + + + + + | [facility] | [address] | [place] [address] | [phone] | + + + + + POC Glucose (12/30/2019 4:11 PM PDT) + + + + + + | Component | Value | Ref Range | Performed | Pathologist | | | | | At | Signature | + + + + + + | Glucose, | 130 (H)Comment: Testing | 65 - 99 mg/dL | [facility] | | | POC | performed at [facility];[address] | | LABORATORY | | | | [address];[place] | | | | | | [address] | | | | + + + + + + + + | Specimen | + + | | + + + + + + + | Performing | Address | City/State/Zipcode | Phone Number | | Organization | | | | + + + + + | [facility] | [address] | [place] [address] | [phone] | + + + + + POC Glucose (12/30/2019 11:02 AM PDT) + + + + + + | Component | Value | Ref Range | Performed | Pathologist | | | | | At | Signature | + + + + + + | Glucose, | 128 (H)Comment: Testing | 65 - 99 mg/dL | [facility] | | | POC | performed at [facility];[address] | | LABORATORY | | | | [address];[place], [place] | | | | | | [address] | | | | + + + + + + + + | Specimen | + + | | + + + + + + + | Performing | Address | City/State/Zipcode | Phone Number | | Organization | | | | + + + + + | [facility] | [address] | [place] [address] | [phone] | + + + + + Basic [...] | | | | | | [facility] traceable | | | | | | equation.Testing | | | | | | performed at [facility] | | | | | | [facility];[place], [place] | | | | | | [address] | | | | + + + + + + + + | Specimen | + + | Blood | + + + + + + + | Performing | Address | City/State/Zipcode | Phone Number | | Organization | | | | + + + + + | [facility] | [address] | [place] [address] | [phone] | + + + + + POC Glucose (12/30/2019 6:04 AM PDT) + + + + + + | Component | Value | Ref Range | Performed | Pathologist | | | | | At | Signature | + + + + + + | Glucose, | 103 (H)Comment: Testing | 65 - 99 mg/dL | [facility] | | | POC | performed at [facility] [facility];[address] | | LABORATORY | | | | [address];[place], [place] | | | | | | [address] | | | | + + + + + + + + | Specimen | + + | | + + + + + + + | Performing | Address | City/State/Zipcode | Phone Number | | Organization | | | | + + + + + | [facility] | [address] | [place] [address] | [phone] | + + + + + CBC [...] | | | Absolute | performed at [facility];[address] | K/uL | LABORATORY | | | | [address];[place], [place] | | | | | | [address] | | | | + + + + + + + + | Specimen | + + | Blood | + + + + + + + | Performing | Address | City/State/Zipcode | Phone Number | | Organization | | | | + + + + + | [facility] | [address] | [place] [address] | [phone] | + + + + + POC Glucose (12/29/2019 11:56 PM PDT) + + + + + + | Component | Value | Ref Range | Performed | Pathologist | | | | | At | Signature | + + + + + + | Glucose, | 109 (H)Comment: Testing | 65 - 99 mg/dL | [facility] | | | POC | performed at [facility];[address] | | LABORATORY | | | | [address];[place], [place] | | | | | | [address] | | | | + + + + + + + + | Specimen | + + | | + + + + + + + | Performing | Address | City/State/Zipcode | Phone Number | | Organization | | | | + + + + + | [facility] | [address] | [place] [address] | [phone] | + + + + + Hemoglobin [...] [facility] | | | | performed at [facility];[address] | | LABORATORY | | | | [address];[place] | | | | | | [address] | | | | + + + + + + + + | Specimen | + + | Blood | + + + + + + + | Performing | Address | City/State/Zipcode | Phone Number | | Organization | | | | + + + + + | [facility] | [address] | [place] [address] | [phone] | + + + + + POC Glucose (12/29/2019 6:06 PM PDT) + + + + + + | Component | Value | Ref Range | Performed | Pathologist | | | | | At | Signature | + + + + + + | Glucose, | 128 (H)Comment: Testing | 65 - 99 mg/dL | [facility] | | | POC | performed at [facility];[address] | | LABORATORY | | | | [address];[place] | | | | | | [address] | | | | + + + + + + + + | Specimen | + + | | + + + + + + + | Performing | Address | City/State/Zipcode | Phone Number | | Organization | | | | + + + + + | [facility] | [address] | [place] [address] | [phone] | + + + + + Hemoglobin [...] [facility] | | | | performed at [facility];[address] | | LABORATORY | | | | [address];[place], [place] | | | | | | [address] | | | | + + + + + + + + | Specimen | + + | Blood | + + + + + + + | Performing | Address | City/State/Zipcode | Phone Number | | Organization | | | | + + + + + | [facility] | [address] | [place] [address] | [phone] | + + + + + POC [...] | | | POC | performed at [facility];[address] | | LABORATORY | | | | [address];[place] | | | | | | [address] | | | | + + + + + + + + | Specimen | + + | | + + + + + + + | Performing | Address | City/State/Zipcode | Phone Number | | Organization | | | | + + + + + | [facility] | [address] | [place] [address] | [phone] | + + + + + POC Glucose (12/29/2019 11:06 AM PDT) + + + + + + | Component | Value | Ref Range | Performed | Pathologist | | | | | At | Signature | + + + + + + | Glucose, | 205 (H)Comment: Testing | 65 - 99 mg/dL | [facility] | | | POC | performed at [facility];[address] | | LABORATORY | | | | [address];[place] | | | | | | [address] | | | | + + + + + + + + | Specimen | + + | | + + + + + + + | Performing | Address | City/State/Zipcode | Phone Number | | Organization | | | | + + + + + | [facility] | [address] | [place] [address] | [phone] | + + + + + Surgical [...] in cassette (A1). B. The specimen, labeled "GretchendemetrioAndres amaro, | | | esophagus biopsy," is received [...] | | technical component was performed by [email or web address], [address] [place] [address] | | | [place] [address] (Curator Of Collections: Padmini Sellers MD; CLIA# | | | [id number]). Professional interpretation was performed [facility] | | | [employer], | | | [place] [address] (Curator Of Collections: Oscar Maynard M.D.; CLIA#: | | | [id number]). Diagnostician: Padmini Sellers | | | MDPathologistElectronically [...] | |The technical component was performed by [email or web address], [address] [place] [address] (Curator Of Collections: Padmini Sellers MD; CLIA# [id number]). Professional interpretation was performed by | | |[email or web address], [address] [address] (Curator Of Collections: Oscar Maynard M.D.; CLIA#: [id number]). | | | | | |Diagnostician: Padmini [...] Performed At | + + + | [facility] | [facility] | | [facility] | PROVATION | | CenterGastroenterology | | | Patient Name: Andres Guzmán | | | Procedure Date: 12/29/2019 8:36 AMMRN: [id number] | | | of : 1930 | [...] the anesthesiologist and the | | | cath laboratory technician in the pre-procedure area in the [...] | | | with Gold probe 7 [place] x 5 pulses was successful with | [...] | | | AMNumber of Addenda: 0 [facility] | | | - Check hemoglobin q 6 hours for one day. | | | | | | | | |LAMONT HERNANDEZ MD | | |12/29/2019 10:19:54 AM | | |This report has been signed electronically. | | | | | |Note Initiated On: 12/29/2019 8:36 AM | | |Number of Addenda: 0 | | | | | | [facility] | | + + + [...] ALEX | | | | performed at [facility];[address] | | LABORATORY | | | | [address];[place] | | | | | | [address] | | | | + + + + + + + + | Specimen | + + | Blood | + + + + + + + | Performing | Address | City/State/Zipcode | Phone Number | | Organization | | | | + + + + + | [facility] | [address] | [place] [address] | [phone] | + + + + + POC [...] | | | POC | performed at [facility];[address] | | LABORATORY | | | | [address];[place], [place] | | | | | | [address] | | | | + + + + + + + + | Specimen | + + | | + + + + + + + | Performing | Address | City/State/Zipcode | Phone Number | | Organization | | | | + + + + + | [facility] | [address] | [place] [address] | [phone] | + + + + + Protime INR (12/29/2019 3:53 AM PDT) + + + + + + | Component | Value | Ref Range | Performed | Pathologist | | | | | At | Signature | + + + + + + | INR | 1.3Comment: REFERENCE | | [facility] | | | | RANGE:0.9 - [...] | | | | performed at [facility];[address] | | | | | | [facility] | | | | | | [address] | | | | + + + + + + + + | Specimen | + + | Blood | + + + + + + + | Performing | Address | City/State/Zipcode | Phone Number | | Organization | | | | + + + + + | [facility] | [address] | [place] [address] | [phone] | + + + + + Basic [...] | | | | performed at [facility];88 | | | | | | [facility];[place], [place] | | | | | | [address] | | | | + + + + + + + + | Specimen | + + | Blood | + + + + + + + | Performing | Address | City/State/Zipcode | Phone Number | | Organization | | | | + + + + + | [facility] | [address] | [place] [address] | [phone] | + + + + + CBC [...] | | | Absolute | performed at [facility];[address] | K/uL | LABORATORY | | | | [facility];[place], [place] | | | | | | [address] | | | | + + + + + + + + | Specimen | + + | Blood | + + + + + + + | Performing | Address | City/State/Zipcode | Phone Number | | Organization | | | | + + + + + | [facility] | [address] | [place] [address] | [phone] | + + + + + POC [...] | | | POC | performed at [facility];[address] | | LABORATORY | | | | [address];[place] | | | | | | [address] | | | | + + + + + + + + | Specimen | + + | | + + + + + + + | Performing | Address | City/State/Zipcode | Phone Number | | Organization | | | | + + + + + | [facility] | [address] | [place] [address] | [phone] | + + + + + Hemoglobin [...] [facility] | | | | performed at [facility];[address] | | LABORATORY | | | | [address];[place], [place] | | | | | | [address] | | | | + + + + + + + + | Specimen | + + | Blood | + + + + + + + | Performing | Address | City/State/Zipcode | Phone Number | | Organization | | | | + + + + + | [facility] | [address] | [place] [address] | [phone] | + + + + + POC [...] | | | POC | performed at [facility];[address] | | LABORATORY | | | | [address];[place] | | | | | | [address] | | | | + + + + + + + + | Specimen | + + | | + + + + + + + | Performing | Address | City/State/Zipcode | Phone Number | | Organization | | | | + + + + + | [facility] | [address] | [place] [address] | [phone] | + + + + + Fecal [...] | | LABORATORY | | | | [facility];[address];[place] [address] | | | | + + + + + + + + | Specimen | + + | Stool - Stool | | specimen (specimen) | + + + + + + + | Performing | Address | City/State/Zipcode | Phone Number | | Organization | | | | + + + + + | [facility] | [address] | [place] [address] | [phone] | + + + + + POC [...] | | | POC | performed at [facility];[address] | | LABORATORY | | | | [address];[place], [place] | | | | | | [address] | | | | + + + + + + + + | Specimen | + + | | + + + + + + + | Performing | Address | City/State/Zipcode | Phone Number | | Organization | | | | + + + + + | [facility] | [address] | [place] [address] | [phone] | + + + + + Hemoglobin and Hematocrit (12/28/2019 3:11 PM PDT) + + + + + + | Component | Value | Ref Range | Performed | Pathologist | | | | | At | Signature | + + + + + + | Hemoglobin | 9.9 (L) | 13.2 - 17.0 | [facility] | | | | | g/dL | LABORATORY | | + + + + + + | Hematocrit | 28.8 (L)Comment: Testing | 39.0 - 50.0 % | [facility] | | | | performed at [facility];[address] | | LABORATORY | | | | [address];[place] | | | | | | [address] | | | | + + + + + + + + | Specimen | + + | Blood | + + + + + + + | Performing | Address | City/State/Zipcode | Phone Number | | Organization | | | | + + + + + | [facility] | [address] | [place] [address] | [phone] | + + + + + POC [...] | | | POC | performed at [facility];[address] | | LABORATORY | | | | [address];[place] | | | | | | [address] | | | | + + + + + + + + | Specimen | + + | | + + + + + + + | Performing | Address | City/State/Zipcode | Phone Number | | Organization | | | | + + + + + | [facility] | [address] | [place] [address] | [phone] | + + + + + POC Glucose (12/28/2019 7:03 AM PDT) + + + + + + | Component | Value | Ref Range | Performed | Pathologist | | | | | At | Signature | + + + + + + | Glucose, | 153 (H)Comment: Testing | 65 - 99 mg/dL | [facility] | | | POC | performed at [facility];[address] | | LABORATORY | | | | [address];[place] | | | | | | [address] | | | | + + + + + + + + | Specimen | + + | | + + + + + + + | Performing | Address | City/State/Zipcode | Phone Number | | Organization | | | | + + + + + | [facility] | [address] | [place] [address] | [phone] | + + + + + Basic [...] | | | | | performed at [facility], [address] | | | | | | [facility], | | | | | | [place] [address] | | | | + + + + + + + + | Specimen | + + | Blood | + + + + + + + | Performing | Address | City/State/Zipcode | Phone Number | | Organization | | | | + + + + + | [facility] | [address] | [place] [address] | [phone] | + + + + + CBC [...] | | | Absolute | performed at [facility], [address] | K/uL | LABORATORY | | | | [facility], | | | | | | [place] [address] | | | | + + + + + + + + | Specimen | + + | Blood | + + + + + + + | Performing | Address | City/State/Zipcode | Phone Number | | Organization | | | | + + + + + | [facility] | [address] | [place] [address] | [phone] | + + + + + POC [...] | | | POC | performed at [facility];[address] | | LABORATORY | | | | [address];[place] | | | | | | [address] | | | | + + + + + + + + | Specimen | + + | | + + + + + + + | Performing | Address | City/State/Zipcode | Phone Number | | Organization | | | | + + + + + | [facility] | [address] | [place] [address] | [phone] | + + + + + POC Glucose (12/27/2019 3:30 PM PDT) + + + + + + | Component | Value | Ref Range | Performed | Pathologist | | | | | At | Signature | + + + + + + | Glucose, | 156 (H)Comment: Testing | 65 - 99 mg/dL | [facility] | | | POC | performed at [facility];[address] | | LABORATORY | | | | [address];[place] | | | | | | [address] | | | | + + + + + + + + | Specimen | + + | | + + + + + + + | Performing | Address | City/State/Zipcode | Phone Number | | Organization | | | | + + + + + | [facility] | [address] | [place] [address] | [phone] | + + + + + Red [...] BANK | Testing performed at | | [facility] | | | COMMENT | [facility];[address] | LABORATORY | | | | [address];[place] [address] | | | | + + + + + + + + | Specimen | + + | | + + + + + + + | Performing | Address | City/State/Zipcode | Phone Number | | Organization | | | | + + + + + | [facility] | [address] | [place] [address] | [phone] | + + + + + Type [...] + + + | BB BAND | [id number] | | [facility] | | | | | | LABORATORY | | + + + + + + | UNIT # | [id number] | | [facility] | | | | [...] + + + | UNIT # | [id number] | | [facility] | | | | [...] | | | RESULT | performed at [facility];[address] | | LABORATORY | | | | [address];[place] | | | | | | [address] | | | | + + + + + + + + | Specimen | + + | Blood | + + + + + + + | Performing | Address | City/State/Zipcode | Phone Number | | Organization | | | | + + + + + | [facility] | [address] | [place] [address] | [phone] | + + + + + POC Glucose (12/27/2019 7:25 AM PDT) + + + + + + | Component | Value | Ref Range | Performed | Pathologist | | | | | At | Signature | + + + + + + | Glucose, | 186 (H)Comment: Testing | 65 - 99 mg/dL | [facility] | | | POC | performed at [facility];[address] | | LABORATORY | | | | [address];[place], [place] | | | | | | [address] | | | | + + + + + + + + | Specimen | + + | | + + + + + + + | Performing | Address | City/State/Zipcode | Phone Number | | Organization | | | | + + + + + | [facility] | [address] | [place] [address] | [phone] | + + + + + CBC [...] | | | Absolute | performed at [facility], [address] | K/uL | LABORATORY | | | | [address], | | | | | | [place] [address] | | | | + + + + + + + + | Specimen | + + | | + + + + + + + | Performing | Address | City/State/Zipcode | Phone Number | | Organization | | | | + + + + + | [facility] | [address] | [place] [address] | [phone] | + + + + + Procalcitonin (12/27/2019 5:04 AM PDT) + + + + + + | Component | Value | Ref Range | Performed | Pathologist | | | | | At | Signature | + + + + + + | PROCALCITON | 0.41Comment: | <0.5 ng/mL [facility] | | | IN | [...] | | | | | | at [facility];[address] [place] [address] | | | | | | [facility];[place] [address] | | | | + + + + + + + + | Specimen | + + | Blood | + + + + + + + | Performing | Address | City/State/Zipcode | Phone Number | | Organization | | | | + + + + + | [facility] | [address] | [place] [address] | [phone] | + + + + + Basic [...] | | | | | | MDRD IDIL traceable | | | | | | equation.Testing | | | | | | performed at [facility], [address] | | | | | | [facility], | | | | | | [place] [address] | | | | + + + + + + + + | Specimen | + + | Blood | + + + + + + + | Performing | Address | City/State/Zipcode | Phone Number | | Organization | | | | + + + + + | [facility] | [address] | [place] [address] | [phone] | + + + + + Vitamin D, Deficiency Screen (25-Hydroxy) (12/27/2019 5:04 AM PDT) + + + + + + | Component | Value | Ref Range | Performed | Pathologist | | | | | At | Signature | + + + + + + | Vit D, | 25.2 (L)Comment: Vitamin | 30.0 - 100.0 | [facility] | | | 25-Hydroxy | D deficiency has been | ng/mL | LABORATORY | | | | defined by the [place] | | | | | | ofMedicine [...] IOM | | | | | | ([place] [employer]). | | | | | [...] 2010 | | | | | | Hugh; | | | | | | 96(7):1911-30.Testing | | | | | | performed at [facility], | | | | | | [address], | | | | | | [facility] [address] | | | | + + + + + + + + | Specimen | + + | Blood | + + + + + + + | Performing | Address | City/State/Zipcode | Phone Number | | Organization | | | | + + + + + | [facility] | [address] | [place] [address] | [phone] | + + + + + Potassium (12/27/2019 12:08 AM PDT) + + + + + + | Component | Value | Ref Range | Performed | Pathologist | | | | | At | Signature | + + + + + + | K | 4.0Comment: Testing | 3.5 - 4.9 | [facility] | | | | performed at [facility];[address] | mmol/L | LABORATORY | | | | [address];[place] | | | | | | [address] | | | | + + + + + + + + | Specimen | + + | Blood | + + + + + + + | Performing | Address | City/State/Zipcode | Phone Number | | Organization | | | | + + + + + | [facility] | [address] | [place] [address] | [phone] | + + + + + Magnesium (12/27/2019 12:08 AM PDT) + + + + + + | Component | Value | Ref Range | Performed | Pathologist | | | | | At | Signature | + + + + + + | Magnesium | 2.2Comment: Testing | 1.7 - 2.4 mg/dL | [facility] | | | | performed at [facility];[address] | | LABORATORY | | | | [address];[place] | | | | | | [address] | | | | + + + + + + + + | Specimen | + + | Blood | + + + + + + + | Performing | Address | City/State/Zipcode | Phone Number | | Organization | | | | + + + + + | [facility] | [address] | [place] [address] | [phone] | + + + + + ECG 12 lead (12/26/2019 11:45 PM PDT) + + + + + + | Component | Value | Ref Range | Performed | Pathologist | | | | | At | Signature | + + + + + + | VENTRICULAR | 70 | BPM | [facility] | | | RATE EKG | | | | | + + + + + + | ATRIAL RATE | 52 | BPM | [facility] | | + + + + + + | QRS | 178 | ms | [facility] | | | DURATION | | [...] QRS AXIS | -134 | degrees | [facility] | | + + + + + + | T AXIS | 78 | degrees | [facility] | | + + + + [...] | | | POC | performed at [facility];[address] | | LABORATORY | | | | [address];[place] | | | | | | [address] | | | | + + + + + + + + | Specimen | + + | | + + + + + + + | Performing | Address | City/State/Zipcode | Phone Number | | Organization | | | | + + + + + | [facility] | [address] | [place] [address] | [phone] | + + + + + POC Glucose (12/26/2019 5:02 PM PDT) + + + + + + | Component | Value | Ref Range | Performed | Pathologist | | | | | At | Signature | + + + + + + | Glucose, | 154 (H)Comment: Testing | 65 - 99 mg/dL | [facility] | | | POC | performed at [facility];[address] | | LABORATORY | | | | [address];[place] | | | | | | [address] | | | | + + + + + + + + | Specimen | + + | | + + + + + + + | Performing | Address | City/State/Zipcode | Phone Number | | Organization | | | | + + + + + | [facility] | [address] | [place] [address] | [phone] | + + + + + Complement C4 Ag (12/26/2019 12:33 PM PDT) + + + + + + | Component | Value | Ref Range | Performed | Pathologist | | | | | At | Signature | + + + + + + | C4 | 15Comment: Testing | 14 - 44 mg/dL | [facility] | | | COMPLEMENT | performed at [facility], | | LABORATORY | | | | [address], | | | | | | [facility] [address] | | | | + + + + + + + + | Specimen | + + | | + + + + + + + | Performing | Address | City/State/Zipcode | Phone Number | | Organization | | | | + + + + + | [facility] | [address] | [place] [address] | [phone] | + + + + + Complement C3 Ag (12/26/2019 12:33 PM PDT) + + + + + + | Component | Value | Ref Range | Performed | Pathologist | | | | | At | Signature | + + + + + + | C3 | 53 (L)Comment: Testing | 82 - 167 mg/dL | [facility] | | | COMPLEMENT | performed at [facility], | | LABORATORY | | | | [address], | | | | | | [facility] [address] | | | | + + + + + + + + | Specimen | + + | | + + + + + + + | Performing | Address | City/State/Zipcode | Phone Number | | Organization | | | | + + + + + | [facility] | [address] | [place] [address] | [phone] | + + + + + POC [...] | | | POC | performed at [facility];[address] | | LABORATORY | | | | [address];[place] | | | | | | [address] | | | | + + + + + + + + | Specimen | + + | | + + + + + + + | Performing | Address | City/State/Zipcode | Phone Number | | Organization | | | | + + + + + | [facility] | [address] | [place] [address] | [phone] | + + + + + POC [...] | | | POC | performed at [facility];[address] | | LABORATORY | | | | [address];[place] | | | | | | [address] | | | | + + + + + + + + | Specimen | + + | | + + + + + + + | Performing | Address | City/State/Zipcode | Phone Number | | Organization | | | | + + + + + | [facility] | [address] | [place] [address] | [phone] | + + + + + Parathyroid Hormone, Intraoperative (12/26/2019 4:25 AM PDT) + + + + + + | Component | Value | Ref Range | Performed | Pathologist | | | | | At | Signature | + + + + + + | PTH Intact | 167.0 (H)Comment: | 8.7 - 79.6 | [facility] | | | | Testing performed at | pg/mL | LABORATORY | | | | [facility];[address];[place] [address] | | | | + + + + + + + + | Specimen | + + | | + + + + + + + | Performing | Address | City/State/Zipcode | Phone Number | | Organization | | | | + + + + + | [facility] | [address] | [place] [address] | [phone] | + + + + + Renal [...] | | | | | performed at [facility], [address] | | | | | [facility], | | | | | | [place] [address] | | | | + + + + + + + + | Specimen | + + | Blood | + + + + + + + | Performing | Address | City/State/Zipcode | Phone Number | | Organization | | | | + + + + + | [facility] | [address] | [place] [address] | [phone] | + + + + + POC [...] | | | POC | performed at [facility];[address] | | LABORATORY | | | | [address];[place], [place] | | | | | | [address] | | | | + + + + + + + + | Specimen | + + | | + + + + + + + | Performing | Address | City/State/Zipcode | Phone Number | | Organization | | | | + + + + + | [facility] | [address] | [place] [address] | [phone] | + + + + + POC Glucose (12/25/2019 5:13 PM PDT) + + + + + + | Component | Value | Ref Range | Performed | Pathologist | | | | | At | Signature | + + + + + + | Glucose, | 133 (H)Comment: Testing | 65 - 99 mg/dL | [facility] | | | POC | performed at [facility];[address] | | LABORATORY | | | | [address];[place] | | | | | | [address] | | | | + + + + + + + + | Specimen | + + | | + + + + + + + | Performing | Address | City/State/Zipcode | Phone Number | | Organization | | | | + + + + + | [facility] | [address] | [place] [address] | [phone] | + + + + + ECHO [...] | | | POC | performed at [facility];[address] | | LABORATORY | | | | [address];[place], [place] | | | | | | [address] | | | | + + + + + + + + | Specimen | + + | | + + + + + + + | Performing | Address | City/State/Zipcode | Phone Number | | Organization | | | | + + + + + | [facility] | [address] | [place] [address] | [phone] | + + + + + POC Glucose (12/25/2019 7:56 AM PDT) + + + + + + | Component | Value | Ref Range | Performed | Pathologist | | | | | At | Signature | + + + + + + | Glucose, | 136 (H)Comment: Testing | 65 - 99 mg/dL | [facility] | | | POC | performed at [facility];[address] | | LABORATORY | | | | [address];[place], [place] | | | | | | [address] | | | | + + + + + + + + | Specimen | + + | | + + + + + + + | Performing | Address | City/State/Zipcode | Phone Number | | Organization | | | | + + + + + | [facility] | [address] | [place] [address] | [phone] | + + + + + CK Total (12/25/2019 4:25 AM PDT) + + + + + + | Component | Value | Ref Range | Performed | Pathologist | | | | | At | Signature | + + + + + + | CK TOTAL | 104Comment: Testing | 55 - 400 U/L | [facility] | | | | performed at [facility];[address] | | LABORATORY | | | | [facility], [place] | | | | | | [address] | | | | + + + + + + + + | Specimen | + + | Blood | + + + + + + + | Performing | Address | City/State/Zipcode | Phone Number | | Organization | | | | + + + + + | [facility] | [address] | [place] [address] | [phone] | + + + + + Renal Function Panel (12/25/2019 4:25 AM PDT) + + + + + + | Component | Value | Ref Range | Performed | Pathologist | | | | | At | Signature | + + + + + + | Na | 134 (L) | 135 - 145 | [facility] | | | | | mmol/L | [...] 13 (L)Comment: GFR <60: | >60 | [facility] | | | GFR | CHRONIC [...] | | | | | performed at [facility], [address] | | | | | | [facility], | | | | | | [place] [address] | | | | + + + + + + + + | Specimen | + + | Blood | + + + + + + + | Performing | Address | City/State/Zipcode | Phone Number | | Organization | | | | + + + + + | [facility] | [address] | [place] [address] | [phone] | + + + + + Cytoplasmic [...] | | | | | with both ND-3 and | | | | | | [...] | <1:20Comment: The | Neg:<1:20 titer | [facility] | | | pANCA | atypical pANCA [...] | | | | | performed by [facility], | | | | | | [address] [facility], | | | | | | [facility] [address] | | | | + + + + + + + + | Specimen | + + | Blood | + + + + + + + | Performing | Address | City/State/Zipcode | Phone Number | | Organization | | | | + + + + + | [facility] | [address] | [place] [address] | [phone] | + + + + + Sedimentation Rate (12/25/2019 4:22 AM PDT) + + + + + + | Component | Value | Ref Range | Performed | Pathologist | | | | | At | Signature | + + + + + + | ESR | 6Comment: Testing | 0 - 20 mm/Hr | [facility] | | | | performed at [facility], [address] | | LABORATORY | | | | [address], | | | | | | [place] [address] | | | | + + + + + + + + | Specimen | + + | Blood | + + + + + + + | Performing | Address | City/State/Zipcode | Phone Number | | Organization | | | | + + + + + | [facility] | [address] | [place] [address] | [phone] | + + + + + Immunoglobulin, Free Light Chain (12/25/2019 4:22 AM PDT) + + + + + + | Component | Value | Ref Range | Performed | Pathologist | | | | | At | Signature | + + + + + + | Rockfish Free | 121.2 (H) | 3.3 - [...] + + + + + + | Rockfish/Lambd | 1.25Comment: Testing | 0.26 - 1.65 | [facility] | | | a Free | performed at [facility] | | LABORATORY | | | Light Chain | [address] | | | | | Ratio | [place] [address] | | | | + + + + + + + + | Specimen | + + | Blood | + + + + + + + | Performing | Address | City/State/Zipcode | Phone Number | | Organization | | | | + + + + + | [facility] | [address] | [place] [address] | [phone] | + + + + + Glomerular Basement Membrane Ab, IgG (12/25/2019 4:22 AM PDT) + + + + + + | Component | Value | Ref Range | Performed | Pathologist | | | | | At | Signature | + + + + + + | Antiglomeru | 2Comment: | 0 - 20 units | [facility] | | | lar BM Ab, [...] by | | | | | | [employer] [address] | | | | | | [place] | | | | | | [address] | | | | + + + + + + + + | Specimen | + + | Blood | + + + + + + + | Performing | Address | City/State/Zipcode | Phone Number | | Organization | | | | + + + + + | [facility] | [address] | [place] [address] | [phone] | + + + + + Hepatitis [...] | | | | | | 0.9The [facility] recommends | | | | | | that a positive HCV | | | | | | antibody resultbe | | | | | | followed up with a HCV | | | | | | Nucleic Acid | | | | | | Amplificationtest | | | | | | ([id number]).Testing | | | | | | performed at [facility], | | | | | | [address], | | | | | | [facility] [address] | | | | + + + + + + + + | Specimen | + + | Blood | + + + + + + + | Performing | Address | City/State/Zipcode | Phone Number | | Organization | | | | + + + + + | [facility] | [address] | [place] [address] | [phone] | + + + + + CK Total (12/25/2019 4:22 AM PDT) + + + + + + | Component | Value | Ref Range | Performed | Pathologist | | | | | At | Signature | + + + + + + | CK TOTAL | 100Comment: Testing | 55 - 400 U/L | [facility] | | | | performed at [facility];[address] | | LABORATORY | | | | [address];[place], [place] | | | | | | [address] | | | | + + + + + + + + | Specimen | + + | Blood | + + + + + + + | Performing | Address | City/State/Zipcode | Phone Number | | Organization | | | | + + + + + | [facility] | [address] | [place] [address] | [phone] | + + + + + Lactate Dehydrogenase (12/25/2019 4:22 AM PDT) + + + + + + | Component | Value | Ref Range | Performed | Pathologist | | | | | At | Signature | + + + + + + | LDH TOTAL | 154Comment: Testing | 120 - 246 U/L | [facility] | | | | performed at [facility];[address] | | LABORATORY | | | | [address];[place] | | | | | | [address] | | | | + + + + + + + + | Specimen | + + | Blood | + + + + + + + | Performing | Address | City/State/Zipcode | Phone Number | | Organization | | | | + + + + + | [facility] | [address] | [place] [address] | [phone] | + + + + + Magnesium (12/25/2019 4:22 AM PDT) + + + + + + | Component | Value | Ref Range | Performed | Pathologist | | | | | At | Signature | + + + + + + | Magnesium | 2.5 (H)Comment: Testing | 1.7 - 2.4 mg/dL | [facility] | | | | performed at [facility], [address] | | LABORATORY | | | | [address], | | | | | | [place] [address] | | | | + + + + + + + + | Specimen | + + | Blood | + + + + + + + | Performing | Address | City/State/Zipcode | Phone Number | | Organization | | | | + + + + + | [facility] | [address] | [place] [address] | [phone] | + + + + + Protein, Urine, Random (12/25/2019 12:01 AM PDT) + + + + + + | Component | Value | Ref Range | Performed | Pathologist | | | | | At | Signature | + + + + + + | Protein, | 131Comment: NO NORMAL | mg/dL | [facility] | | | Urine | [facility]ISHED[facility] | | LABORATORY | | | | performed at [facility], [address] | | | | | [address], | | | | | | [place] [address] | | | | + + + + + + + + | Specimen | + + | | + + + + + + + | Performing | Address | City/State/Zipcode | Phone Number | | Organization | | | | + + + + + | [facility] | [address] | [place] [address] | [phone] | + + + + + Creatinine, Urine, Random (12/25/2019 12:01 AM PDT) + + + + + + | Component | Value | Ref Range | Performed | Pathologist | | | | | At | Signature | + + + + + + | Creatinine, | 139.0Comment: NO NORMAL | mg/dL | [facility] | | | random | [facility]LISHED[facility] | | LABORATORY | | | urine | performed at [facility], [address] | | | | | [address], | | | | | | [place] [address] | | | | + + + + + + + + | Specimen | + + | | + + + + + + + | Performing | Address | City/State/Zipcode | Phone Number | | Organization | | | | + + + + + | [facility] | [address] | [place] [address] | [phone] | + + + + + Protein/Creatinine Ratio, Urine (12/25/2019 12:01 AM PDT) + + + + + + | Component | Value | Ref Range | Performed | Pathologist | | | | | At | Signature | + + + + + + | PRO/CREA | 0.942Comment: Testing | | [facility] | | | RATIO,URINE | performed at [facility], [address] | | LABORATORY | | | | [address], | | | | | | [place] [address] | | | | + + + + + + + + | Specimen | + + | Urine | + + + + + + + | Performing | Address | City/State/Zipcode | Phone Number | | Organization | | | | + + + + + | [facility] | [address] | [place] [address] | [phone] | + + + + + POC Glucose (12/24/2019 8:55 PM PDT) + + + + + + | Component | Value | Ref Range | Performed | Pathologist | | | | | At | Signature | + + + + + + | Glucose, | 149 (H)Comment: Testing | 65 - 99 mg/dL | [facility] | | | POC | performed at [facility];[address] | | LABORATORY | | | | [address];[place] | | | | | | [address] | | | | + + + + + + + + | Specimen | + + | | + + + + + + + | Performing | Address | City/State/Zipcode | Phone Number | | Organization | | | | + + + + + | [facility] | [address] | [place] [address] | [phone] | + + + + + POC Glucose (12/24/2019 5:14 PM PDT) + + + + + + | Component | Value | Ref Range | Performed | Pathologist | | | | | At | Signature | + + + + + + | Glucose, | 136 (H)Comment: Testing | 65 - 99 mg/dL | [facility] | | | POC | performed at [facility];[address] | | LABORATORY | | | | [address];[place], [place] | | | | | | [address] | | | | + + + + + + + + | Specimen | + + | | + + + + + + + | Performing | Address | City/State/Zipcode | Phone Number | | Organization | | | | + + + + + | [facility] | [address] | [place] [address] | [phone] | + + + + + ECG [...] | | | | Signed by: César Johnson, Tristan | | Sign Date/Time: 12/24/2019 3:21 PM [...] | | | Arterial, | performed at [facility];[address] | | LABORATORY | | | POC | [address] [facility];[place], [place] | | | | | | [address] | | | | + + + + + + + + | Specimen | + + | | + + + + + + + | Performing | Address | City/State/Zipcode | Phone Number | | Organization | | | | + + + + + | [facility] | [address] | [place] [address] | [phone] | + + + + + Coronavirus (COVID-19) NAAT (12/24/2019 1:10 PM PDT) + + + + + + | Component | Value | Ref Range | Performed | Pathologist | | | | | At | Signature | + + + + + + | SARS-CoV-2, | NEGATIVEComment: Testing | NEG | [facility] | | | YOU | performed at [facility];[address] | | LABORATORY | | | (COVID-19) | [address];[place], [place] | | | | | | [address] | | | | + + + + + + + + | Specimen | + + | Tissue - Entire | | nasopharynx (body | | structure) | + + + + + + + | Performing | Address | City/State/Zipcode | Phone Number | | Organization | | | | + + + + + | [facility] | [address] | [place] [address] | [phone] | + + + + + Culture, [...] | [facility] | | | Requests | [facility];[address] | | LABORATORY | | | | [address];[place] [address] | | | | + + + + + + | RESULT | NO GROWTH 6 DAYS | | [facility] | | | | | | LABORATORY | | + + + + + + | RESULT | Testing performed at | | [facility] | | | | [facility], [address] | | LABORATORY | | | | [place] | | | | | | [address]Utnlpff: Testing | | | | | | performed at [facility], [address] | | | | | | [address] [place] | | | | | | [address] | | | | + + + + + + + + | Specimen | + + | Blood - Peripheral | | blood specimen | | (specimen) | + + + + + + + | Performing | Address | City/State/Zipcode | Phone Number | | Organization | | | | + + + + + | [facility] | [address] | [place] [address] | [phone] | + + + + + Culture, [...] | | LABORATORY | | | | Blvd;[place] [address] | | | | + + + + + + | RESULT | NO GROWTH 6 DAYS | | [facility] | | | | | | LABORATORY | | + + + + + + | RESULT | Testing performed at | | [facility] | | | | [facility], [address] [facility] | | LABORATORY | | | | [place], [place] | | | | | | [address]Nxwuptv: Testing | | | | | | performed at [facility], [address] | | | | | | [address], [place], [place] | | | | | | [address] | | | | + + + + + + + + | Specimen | + + | Blood - Peripheral | | blood specimen | | (specimen) | + + + + + + + | Performing | Address | City/State/Zipcode | Phone Number | | Organization | | | | + + + + + | [facility] | [address] | [place] [address] | [phone] | + + + + + Urinalysis [...] - 1.030 | [facility] | | | [address], | | | LABORATORY | | | [...] | | | Urine | performed at [facility], [address] | | LABORATORY | | | | [address], | | | | | | [place] [address] | | | | + + + [...] | + + + + + | [facility] | [address] | [place] [address] | [phone] | + + + + + Sodium, Urine, Random (12/24/2019 12:45 PM PDT) + + + + + + | Component | Value | Ref Range | Performed | Pathologist | | | | | At | Signature | + + + + + + | Sodium, | 52Comment: NO NORMAL | mmol/L | [facility] | | | Random | [facility] | | LABORATORY | | | urine | performed at [facility], [address] | | | | | | [address], | | | | | | [place] [address] | | | | + + + [...] | + + + + + | [facility] | [address] | [place] [address] | [phone] | + + + + + Creatinine, Urine, Random (12/24/2019 12:45 PM PDT) + + + + + + | Component | Value | Ref Range | Performed | Pathologist | | | | | At | Signature | + + + + + + | Creatinine, | 70.0Comment: NO NORMAL | mg/dL | [facility] | | | random | [facility] | | LABORATORY | | | urine | performed at [facility], [address] | | | | | | [address] [facility], | | | | | | [place] [address] | | | | + + + [...] | + + + + + | [facility] | [address] | [place] [address] | [phone] | + + + + + Lactic Acid (12/24/2019 12:27 PM PDT) + + + + + + | Component | Value | Ref Range | Performed | Pathologist | | | | | At | Signature | + + + + + + | Lactate, | 1.6Comment: Testing | 0.4 - 2.0 | [facility] | | | Serum | performed at [facility];[address] | mmol/L | LABORATORY | | | | [address];[place] | | | | | | [address] | | | | + + + + + + + + | Specimen | + + | Blood | + + + + + + + | Performing | Address | City/State/Zipcode | Phone Number | | Organization | | | | + + + + + | [facility] | [address] | [place] [address] | [phone] | + + + + + Procalcitonin [...] | | | | | | at [facility];[address] | | | | | | [address];[place] [address] | | | | + + + + + + + + | Specimen | + + | Blood | + + + + + + + | Performing | Address | City/State/Zipcode | Phone Number | | Organization | | | | + + + + + | [facility] | [address] | [place] [address] | [phone] | + + + + + POC [...] | | | POC | performed at [facility];[address] | | LABORATORY | | | | [address];[place] | | | | | | [address] | | | | + + + + + + + + | Specimen | + + | | + + + + + + + | Performing | Address | City/State/Zipcode | Phone Number | | Organization | | | | + + + + + | [facility] | [address] | [place] [address] | [phone] | + + + + + POC Glucose (12/24/2019 8:32 AM PDT) + + + + + + | Component | Value | Ref Range | Performed | Pathologist | | | | | At | Signature | + + + + + + | Glucose, | 147 (H)Comment: Testing | 65 - 99 mg/dL | [facility] | | | POC | performed at [facility];[address] | | LABORATORY | | | | [address];[place] | | | | | | [address] | | | | + + + + + + + + | Specimen | + + | | + + + + + + + | Performing | Address | City/State/Zipcode | Phone Number | | Organization | | | | + + + + + | [facility] | [address] | [place] [address] | [phone] | + + + + + CBC [...] | 12.2Comment: NO NORMAL | fl | [facility] | | | | [facility]ISHEDTesting | | LABORATORY | | | | performed at [facility];[address] | | | | | | [address];[place], [place] | | | | | | [address] | | | | + + + + + + + + | Specimen | + + | Blood | + + + + + + + | Performing | Address | City/State/Zipcode | Phone Number | | Organization | | | | + + + + + | [facility] | [address] | [place] [address] | [phone] | + + + + + Basic [...] | | | | | performed at [facility], [address] | | | | | | [address], | | | | | | [place] [address] | | | | + + + + + + + + | Specimen | + + | Blood | + + + + + + + | Performing | Address | City/State/Zipcode | Phone Number | | Organization | | | | + + + + + | [facility] | [address] | [place] [address] | [phone] | + + + + + POC [...] | | | POC | performed at [facility];[address] | | LABORATORY | | | | [address];[place], [place] | | | | | | [address] | | | | + + + + + + + + | Specimen | + + | | + + + + + + + | Performing | Address | City/State/Zipcode | Phone Number | | Organization | | | | + + + + + | [facility] | [address] | [place] [address] | [phone] | + + + + + POC Glucose (12/23/2019 4:35 PM PDT) + + + + + + | Component | Value | Ref Range | Performed | Pathologist | | | | | At | Signature | + + + + + + | Glucose, | 129 (H)Comment: Testing | 65 - 99 mg/dL | [facility] | | | POC | performed at [facility];[address] | | LABORATORY | | | | [address];[place] | | | | | | [address] | | | | + + + + + + + + | Specimen | + + | | + + + + + + + | Performing | Address | City/State/Zipcode | Phone Number | | Organization | | | | + + + + + | [facility] | [address] | [place] [address] | [phone] | + + + + + POC Glucose (12/23/2019 2:05 PM PDT) + + + + + + | Component | Value | Ref Range | Performed | Pathologist | | | | | At | Signature | + + + + + + | Glucose, | 158 (H)Comment: Testing | 65 - 99 mg/dL | [facility] | | | POC | performed at [facility];[address] | | LABORATORY | | | | [address];[place], [place] | | | | | | [address] | | | | + + + + + + + + | Specimen | + + | | + + + + + + + | Performing | Address | City/State/Zipcode | Phone Number | | Organization | | | | + + + + + | [facility] | [address] | [place] [address] | [phone] | + + + + + POC [...] | | | POC | performed at [facility];[address] | | LABORATORY | | | | [address];[place], [place] | | | | | | [address] | | | | + + + + + + + + | Specimen | + + | | + + + + + + + | Performing | Address | City/State/Zipcode | Phone Number | | Organization | | | | + + + + + | [facility] | [address] | [place] [address] | [phone] | + + + + + Basic [...] 22 (L)Comment: GFR <60: | >60 | [facility] | | | GFR | CHRONIC [...] | | | | | | MDRD IDIL traceable | | | | | | equation.Testing | | | | | | performed at [facility] | | | | | | [facility];[place], [place] | | | | | | [address] | | | | + + + + + + + + | Specimen | + + | Blood | + + + + + + + | Performing | Address | City/State/Zipcode | Phone Number | | Organization | | | | + + + + + | [facility] | [address] | [place] [address] | [phone] | + + + + + Phosphorus (12/23/2019 4:04 AM PDT) + + + + + + | Component | Value | Ref Range | Performed | Pathologist | | | | | At | Signature | + + + + + + | Phosphorus | 4.6Comment: Testing | 2.3 - 4.8 mg/dL | [facility] | | | | performed at [facility];[address] | | LABORATORY | | | | [address];[place] | | | | | | [address] | | | | + + + + + + + + | Specimen | + + | Blood | + + + + + + + | Performing | Address | City/State/Zipcode | Phone Number | | Organization | | | | + + + + + | [facility] | [address] | [place] [address] | [phone] | + + + + + Magnesium (12/23/2019 4:04 AM PDT) + + + + + + | Component | Value | Ref Range | Performed | Pathologist | | | | | At | Signature | + + + + + + | Magnesium | 2.1Comment: Testing | 1.7 - 2.4 mg/dL | [facility] | | | | performed at [facility];[address] | | LABORATORY | | | | [address];[place] | | | | | | [address] | | | | + + + + + + + + | Specimen | + + | Blood | + + + + + + + | Performing | Address | City/State/Zipcode | Phone Number | | Organization | | | | + + + + + | [facility] | [address] | [place] [address] | [phone] | + + + + + CBC [...] LABORATORY | | | | performed at [facility];[address] | | | | | | [address];[place] | | | | | | [address] | | | | + + + + + + + + | Specimen | + + | Blood | + + + + + + + | Performing | Address | City/State/Zipcode | Phone Number | | Organization | | | | + + + + + | [facility] | [address] | [place] [address] | [phone] | + + + + + Hemoglobin (12/22/2019 9:37 PM PDT) + + + + + + | Component | Value | Ref Range | Performed | Pathologist | | | | | At | Signature | + + + + + + | Hemoglobin | 9.1 (L)Comment: Testing | 13.2 - 17.0 | [facility] | | | | performed at [facility];[address] | g/dL | LABORATORY | | | | [address];[place], [place] | | | | | | [address] | | | | + + + + + + + + | Specimen | + + | Blood | + + + + + + + | Performing | Address | City/State/Zipcode | Phone Number | | Organization | | | | + + + + + | [facility] | [address] [facility] | [place] [address] | [phone] | + + + + + Hematocrit (12/22/2019 9:37 PM PDT) + + + + + + | Component | Value | Ref Range | Performed | Pathologist | | | | | At | Signature | + + + + + + | Hematocrit | 27.4 (L)Comment: Testing | 39.0 - 50.0 % | [facility] | | | | performed at [facility] | | LABORATORY | | | | [address];[place], [place] | | | | | | [address] | | | | + + + + + + + + | Specimen | + + | Blood | + + + + + + + | Performing | Address | City/State/Zipcode | Phone Number | | Organization | | | | + + + + + | [facility] | [address] | [place] [address] | [phone] | + + + + + POC Glucose (12/22/2019 8:30 PM PDT) + + + + + + | Component | Value | Ref Range | Performed | Pathologist | | | | | At | Signature | + + + + + + | Glucose, | 129 (H)Comment: Testing | 65 - 99 mg/dL | [facility] | | | POC | performed at [facility];[address] | | LABORATORY | | | | [address];[place] | | | | | | [address] | | | | + + + + + + + + | Specimen | + + | | + + + + + + + | Performing | Address | City/State/Zipcode | Phone Number | | Organization | | | | + + + + + | [facility] | [address] | [place] [address] | [phone] | + + + + + POC Glucose (12/22/2019 5:32 PM PDT) + + + + + + | Component | Value | Ref Range | Performed | Pathologist | | | | | At | Signature | + + + + + + | Glucose, | 153 (H)Comment: Testing | 65 - 99 mg/dL | [facility] | | | POC | performed at [facility];[address] | | LABORATORY | | | | [address];[place], [place] | | | | | | [address] | | | | + + + + + + + + | Specimen | + + | | + + + + + + + | Performing | Address | City/State/Zipcode | Phone Number | | Organization | | | | + + + + + | [facility] | [address] | [place] [address] | [phone] | + + + + + Red [...] BANK | Testing performed at | | [facility] | | | COMMENT | [facility];[address] | | LABORATORY | | | | [place] [address] | | | | + + + + + + + + | Specimen | + + | | + + + + + + + | Performing | Address | City/State/Zipcode | Phone Number | | Organization | | | | + + + + + | [facility] | [address] | [place] [address] | [phone] | + + + + + POC [...] | | | POC | performed at [facility];[address] | | LABORATORY | | | | [address];[place], [place] | | | | | | [address] | | | | + + + + + + + + | Specimen | + + | | + + + + + + + | Performing | Address | City/State/Zipcode | Phone Number | | Organization | | | | + + + + + | [facility] | [address] | [place] [address] | [phone] | + + + + + [place] [...] | | | POC | performed at [facility];888 | g/dL | LABORATORY | | | | [address];[place], [place] | | | | | | [address] | | | | + + + + + + + + | Specimen | + + | | + + + + + + + | Performing | Address | City/State/Zipcode | Phone Number | | Organization | | | | + + + + + | [facility] | [address] | [place] [address] | [phone] | + + + + + POC ISTAT, CG8, Arterial (12/22/2019 9:23 AM PDT) + + + + + + | Component | Value | Ref Range | Performed | Pathologist | | | | | At | Signature | + + + + + + | pH, | 7.314 (L) | 7.350 - 7.450 | [facility] | | | Arterial, | | | [...] | | | POC | performed at [facility];888 | g/dL | LABORATORY | | | | [address];[place], [place] | | | | | | [address] | | | | + + + + + + + + | Specimen | + + | | + + + + + + + | Performing | Address | City/State/Zipcode | Phone Number | | Organization | | | | + + + + + | [facility] | [address] | [place] [address] | [phone] | + + + + + POC MORRIS CG8, Arterial (12/22/2019 8:47 AM PDT) + [...] (L)Comment: Testing | 13.7 - 16.7 | [facility] | | | POC | performed at [facility];888 | g/dL | LABORATORY | | | | [address];[place] | | | | | | [address] | | | | + + + + + + + + | Specimen | + + | | + + + + + + + | Performing | Address | City/State/Zipcode | Phone Number | | Organization | | | | + + + + + | [facility] | [address] | [place] [address] | [phone] | + + + + + POC [...] | | | POC | performed at [facility];888 | g/dL | LABORATORY | | | | [address];[place], [place] | | | | | | [address] | | | | + + + + + + + + | Specimen | + + | | + + + + + + + | Performing | Address | City/State/Zipcode | Phone Number | | Organization | | | | + + + + + | [facility] | [address] | [place] [address] | [phone] | + + + + + Type [...] + + + | BB BAND | [id number] | | [facility] | | | | | | LABORATORY | | + + + + + + | UNIT # | [id number] | | [facility] | | | | [...] | | | RESULT | performed at [facility] | | LABORATORY | | | | [address];[place], [place] | | | | | | [address] | | | | + + + + + + | UNIT # | [id number] | | [facility] | | | | [...] | + + + + + | [facility] | [address] | [place] [address] | [phone] | + + + + + POC Glucose (12/22/2019 5:35 AM PDT) + + + + + + | Component | Value | Ref Range | Performed | Pathologist | | | | | At | Signature | + + + + + + | Glucose, | 155 (H)Comment: Testing | 65 - 99 mg/dL | [facility] | | | POC | performed at [facility];[address] | | LABORATORY | | | | [address];[place], [place] | | | | | | [address] | | | | + + + + + + + + | Specimen | + + | | + + + + + + + | Performing | Address | City/State/Zipcode | Phone Number | | Organization | | | | + + + + + | [facility] | [address] | [place] [address] | [phone] | + + + + + Protime [...] | | | | performed at [facility];[address] | | | | | | [address];[place], [place] | | | | | | [address] | | | | + + + + + + + + | Specimen | + + | Blood | + + + + + + + | Performing | Address | City/State/Zipcode | Phone Number | | Organization | | | | + + + + + | [facility] | [address] | [place] [address] | [phone] | + + + + + CBC [...] 0.02Comment: Testing | 0.00 - 0.10 | [facility] | | | Absolute | performed at [facility], [address] | K/uL | LABORATORY | | | | [address], | | | | | | [place] [address] | | | | + + + + + + + + | Specimen | + + | Blood | + + + + + + + | Performing | Address | City/State/Zipcode | Phone Number | | Organization | | | | + + + + + | [facility] | [address] | [place] [address] | [phone] | + + + + + Magnesium (12/22/2019 5:26 AM PDT) + + + + + + | Component | Value | Ref Range | Performed | Pathologist | | | | | At | Signature | + + + + + + | Magnesium | 2.6 (H)Comment: Testing | 1.7 - 2.4 mg/dL | [facility] | | | | performed at [facility], [address] | | LABORATORY | | | | [address], | | | | | | [place] [address] | | | | + + + + + + + + | Specimen | + + | Blood | + + + + + + + | Performing | Address | City/State/Zipcode | Phone Number | | Organization | | | | + + + + + | [facility] | [address] | [place] [address] | [phone] | + + + + + Basic [...] 22 (L)Comment: GFR <60: | >60 | [facility] | | | GFR | CHRONIC [...] | | | | | | MDRD IDIL traceable | | | | | | equation.Testing | | | | | | performed at [facility], [address] | | | | | | [facility], | | | | | | [place] [address] | | | | + + + + + + + + | Specimen | + + | Blood | + + + + + + + | Performing | Address | City/State/Zipcode | Phone Number | | Organization | | | | + + + + + | [facility] | [address] | [place] [address] | [phone] | + + + + + POC Glucose (12/21/2019 11:43 PM PDT) + + + + + + | Component | Value | Ref Range | Performed | Pathologist | | | | | At | Signature | + + + + + + | Glucose, | 153 (H)Comment: Testing | 65 - 99 mg/dL | [facility] | | | POC | performed at [facility];[address] | | LABORATORY | | | | [address];[place] | | | | | | [address] | | | | + + + + + + + + | Specimen | + + | | + + + + + + + | Performing | Address | City/State/Zipcode | Phone Number | | Organization | | | | + + + + + | [facility] | [address] | [place] [address] | [phone] | + + + + + POC Glucose (12/21/2019 9:11 PM PDT) + + + + + + | Component | Value | Ref Range | Performed | Pathologist | | | | | At | Signature | + + + + + + | Glucose, | 182 (H)Comment: Testing | 65 - 99 mg/dL | [facility] | | | POC | performed at [facility];[address] | | LABORATORY | | | | [address];[place], [place] | | | | | | [address] | | | | + + + + + + + + | Specimen | + + | | + + + + + + + | Performing | Address | City/State/Zipcode | Phone Number | | Organization | | | | + + + + + | [facility] | [address] | [place] [address] | [phone] | + + + + + documented [...] | | | | Starting [facility] 12/26/19 at 1637 | | | [...] | | | | | | | 9141-1861 Use NIGHT DOSE for | | | | | | | doses scheduled: HS, | | | | | | | Nighttime 8761-1955 If the BG is | | | [...]
--- OUTSIDE RECORDS SUMMARY | ~2020-01-01 | XMS | Encounter Summary ---
Demographics + + + | Address | [address] | | | [place] [address] | + + + | Home Phone [...] [place] | | | | | [address] | | + + + + + | Deanna Lawson | ECON | Unknown | | + + + + + Care Team Providers + +------+ + | Care Sql Database Administrator Name | Role | Phone | [...] | | | | | atrial | CLINICAL NURSE REVIEWER [address] | | | | | | fibrillation | [address] | | | | | | (HCC) | [place] | | | | | | Pres[place] | [place] | | | | | | cardiac | [address] | | | | | | pacemaker | Phone: | | | | | | Chronic | [phone] | | | | | | diastolic | Fax: | | | | | | heart | [phone] | | | | | | failure [...] 06/27/ | Office | [facility] | Charlee Oswald | 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) | | | | [address] | [place] | (Primary Dx); | | | | [address] | [place] [address] | Cardiac pacemaker in | | | | [place], [place] | [phone] | situ; 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 He reports today that he did [...] to feel considerably improved since his generator [employer], as he had felt quite symptomatic when [...] recreational or illicit drug use. Exercises with [employer] and [employer] work, tolerates without chest pain or dyspnea. 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 [...] : 02/04/2019: ( Dr. Thompson) : new [employer] Accolade MRI com patible model L310, serial #[id number] pacemaker. The current lead is a [employer] model 4136, serial #[id number].Mode for pacing, VVIR with dual-sensor technology programmed on. T he lower rate will be 60 and upper rate 120beats per minute. The output will be 2 volts at 0.4 milliseconds with sensitivity of 2.5 millivolts. Pacing and sensing will be bipolar Previous Implant Pacemaker/ICD: 07/30/2010, BS Altrajinder S601, SN: [id number]. [facility]. Last pacer interrogation: 05/07/2019: ( Dr. Thompson) : Normal device function was seen today f or this [employer] single-chamber device. The pacing threshold was [...] change, except less pul monary hypertension Echo:07/26/2017: [facility]: EF >70 percent. LV normal in size [...] PHS 75,TOTAL BILI 0.6,ALB 3.9 Labs: 02/18/2018: ([facility]). CBC: WBC 6.2, RBC 3.46, hemoglobin [...] 73. Thyroid: TSH 3.55 Labs: 08/23/2018: ( [facility]): CBC: WBC 6.6, RBC [...] He had a recent clinic visit with van driver helper Dr. Thompson, and pacemaker has stable d [...] . His echo will be performed at [facility] in September, and I will follow-up with [...] contain inadvertent rec ognition errors. 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
--- OUTSIDE RECORDS SUMMARY | ~2020-01-01 | XMS | Encounter Summary ---
Demographics + + + | Address | [address] | | | [place] [address] | + + + | Home Phone [...] [place] | | | | | [address] | | + + + + + | Deanna Lawson | ECON | Unknown | | + + + + + Care Team Providers + +------+ + | Care Sew On Operator Name | Role | Phone | + +------+ + | Barbara Gilman MD | PCP | | + +------+ + Encounter Details +--------+ + + + + | Date | Type | Department | Care Team | Description | +--------+ + + + + | 04/01/ | Orders Only | [facility] | Tristan Rajput, | | | 2018 | | [facility] | WOOL HAT HYDRAULICKER [address] | | | | | [address] | [address] | | | | | [address] [facility] [place] | [place] | | | | | [address] | [address] | | | | | [phone] | [phone] | | | | | | | [...] [place] | | | | | | [address] | | | | | | | [...] [place] | | | | | | [address] | | | | | | | [...] | | | LAB | | | VENEZUELAN | | | | | + + [...]
--- OUTSIDE RECORDS SUMMARY | ~2020-01-01 | XMS | Encounter Summary ---
Demographics + + + | Address | [address] | | | [place] [address] | + + + | Home Phone | | + + + | Preferred Language | Unknown | + + + | Marital Status | | + + + | Mandaeism Affiliation | 1001 | + + + [...] [place] | | | | | [address] | | + + + + + | Deanna Lawson | ECON | Unknown | | + + + + + Care Team Providers + +------+ + | Care Habitat Conservation Planner Name | Role | Phone | + +------+ + PCP | Unavailable | + +------+ + Encounter Details +--------+ + + + + | Date | Type | Department | Care Team | Description | +--------+ + + + + | 01/07/ | Orders Only | [facility] | Conversion | | | 2019 | | NEPRHOLOGY [place] | Transaction, | | | | | [address] | Provider Unknown | | | | | [address] [place], [place] | [phone] | | | | | [address] | | | | | | [phone] | | | +--------+ + + + [...] [place] | | | | | | [address] | | | | | | | | +--------+ + + + + | 02/09/ | Procedure | Cardiology | | | | 2019 | visit | | | | +--------+ + + + + | 03/09/ | Office | Nephrology | Isiah Jade MD | | | 2019 | Visit | | [address] [facility] [address] | | | | | | [address] [place] | | | | | | [address] | | | | | | | [...] - 1.030 | EXTERNAL | | | [place], | | | LAB | | | [...] + +---------+ + + External Lab: CBC (01/07/2019 9:51 AM PDT) + + + [...]
--- OUTSIDE RECORDS SUMMARY | ~2020-01-01 | XMS | Encounter Summary ---
Demographics + + + | Address | [address] | | | [place] [address] | + + + | Home Phone [...] [place] | | | | | [address] | | + + + + + | Deanna Lawson | ECON | Unknown | | + + + + + Care Team Providers + +------+ + | Care Director Government Name | Role | Phone | + +------+ + | Barbara Gilman MD | PCP | | + +------+ + Encounter Details +--------+ + + + + | Date | Type | Department | Care Team | Description | +--------+ + + + + | 10/25/ | Orders Only | [facility] | Charlee Oswald | | | 2019 | | CARDIOLOGY [place] | [address] | | | | | [address] | [address] | | | | | [address] | [place] [address] | | | | | [place] | [phone] | | | | | [address] | | | | | | [phone] | | | +--------+ + + + [...] [place] | | | | | | [address] | | | | | | | [...] [place] | | | | | | [address] | | | | | | | [...]
--- OUTSIDE RECORDS SUMMARY | ~2020-01-01 | XMS | Encounter Summary ---
Demographics + + + | Address | [address] | | | [place] [address] | + + + | Home Phone | | + + + | Preferred Language | Unknown | + + + | Marital Status | | + + + | Confucianist Affiliation | 1001 | + + + | Race | Unknown | + + + | Ethnic Group | Unknown | + + + Author + + + | Author | [facility] | | | and [place] | + + + | Organization | [facility] | [...] [place] | | | | | [address] | | + + + + + | Deanna Lawson | ECON | Unknown | | + + + + + Care Team Providers + +------+ + | Care Project Mgr Name | Role | Phone | + [...] | | Required | | atrial | 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 [address] | 19 | | | | | fibrillation | [address] | ANUARCADIALucius | | | | | (HCC) | [place] [address] | [address] | | | | | Moderate to | [place], [place] | [address] | | | | | severe | [address] | [place] | | | | | pulmonary | Phone: | [address] Phone: | | | | | hypertension | [phone] | [phone] | | | | | (HCC) Risk | Fax: | Fax: | | | | | factors for | [phone] | [phone] | | | | | obstructive | [...] + + | 10/27/ | Office | [facility] | Charlee Oswald | Permanent atrial | | 2020 | Visit | CARDIOLOGY [place] | [address] | fibrillation (HCC) | | | | [address] | [address] [address] | (Primary Dx); | | | | [address] | [place] [address] | Cardiac pacemaker in | | | | [place] | [phone] | situ; 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 Dorsey at [facility] , call [phone] for an appoi ntment next week I will have you establish care with Dr. Sanchez who will be your chief meter reader See me back in 4 weeks documented [...] cirrhosis which is also followed by the [facility], though liver enzymes normal . He was previously diagnosed with sleep apnea by the [facility], but updated sleep study performed by the [facility] in 2018 was reported by him as being negative His AGR0NQ7- VASC score is 6( HTN, age, stroke, [...] recreational or illicit drug use. Exercises with [employer] and yard work, tolerates without chest pain or dyspnea. 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 Also worked for a [employer] company and then a [employer], but now just enjoys his leisure ti [...] rhonchi noted, respirations unlab ored HEART: [facility] pacemaker site well Healed, stable to [...] : 02/04/2019: ( Dr. Thompson) : new [employer] Accolade MRI com patible model L310, serial #[id number] pacemaker. The current lead is a Ac[employer] model 4136, serial #[id number].Mode for pacing, VVIR with dual-sensor technology programmed on. T he lower rate will be 60 and upper rate 120beats per minute. The output will be 2 volts at 0.4 milliseconds with sensitivity of 2.5 millivolts. Pacing and sensing will be bipolar Previous Implant Pacemaker/ICD: 07/30/2010, BS Altlevigenia S601, SN: [id number]. [facility]. Addendum: Last [...] function was seen today for th is [employer] single-chamber device. The pacing threshold was [...] 15 mmHg. Normal pulmonic valve with mild SC. Sinus of Valsalva dilated about 4.26 cm, [...] change, except less pulmonar y hypertension Echo:07/26/2017: [facility]: EF >70 percent. LV normal [...] PHS 75,TOTAL BILI 0.6,ALB 3.9 Labs: 02/18/2018: ([facility]). CBC: WBC 6.2, RBC 3.46, hemoglobin 11.2, [...] 73. Thyroid: TSH 3.55 Labs: 08/23/2018: ( [facility]): CBC: WBC 6.6, RBC 2.92, hemoglobin [...] stopped, as he has a very high XPE7ED2- VASC sco re of 6. For his [...] apnea evaluation with Dr. Dorsey at the [facility] sleep disorders clinic due to his [...] contain inadvertent rec ognition errors. Maximilian MCCONNELL [facility] Cardiology 10/28/2019 Ubaldo gregory in [...] [place] | | | | | | [address] | | | | | | | | +--------+ + + + + | 02/09/ | Procedure | Cardiology | | | | 2019 | visit | | | | +--------+ + + + + | 03/09/ | Office | Nephrology | Isiah Jade MD | | | 2019 | Visit | | [address] [facility] [address] | | | | | | [address] [place] | | | | | | [address] | | | | | | | [...]
--- OUTSIDE RECORDS SUMMARY | ~2020-01-01 | XMS | Encounter Summary ---
Demographics + + + | Address | [address] | | | [place] [address] | + + + | Home Phone [...] [place] | | | | | [address] | | + + + + + | Deanna Lawson | ECON | Unknown | | + + + + + Care Team Providers + +------+ + | Care Mica Layer Name | Role | Phone | + +------+ + PCP | Unavailable | + +------+ + Encounter Details +--------+ + + + + | Date | Type | Department | Care Team | Description | +--------+ + + + + | 07/25/ | Hospital | [facility] | Yoli Harding MD | Dyspnea, unspecified | | 2017 - | Encounter | [facility] | [address] | type; Fatigue, | | | | CARE FLOOR [address] | [place] [address] | unspecified type; | | 07/29/ | | [address] | [phone] | Altered mental | | 2016 | | [place], [place] | | status, unspecified | | | | [address] | | altered mental | | | | [phone] | | status type; | | | [...] Date of Service: 07/29/17 1003 Status: Signed Tower Air Traffic Control Specialist: Gutierrez Lopez MD (Physician) [facility] Service: Hospitalist Discharge Summary Date [...] congestive heart failure clinic, arranged by case finishing machine adjuster and outpatient sharon metzger. Past Medical History [...] Take 500 mg by mouth daily. 07/24/2017@0700 Wrdfdmi-Sozpihtge-Vvnslbl D 600-40-500 MG-MG-UNIT TB24 Take 1,200 mg [...] Take 1 tablet by mouth daily. 2016@00 [place] 3 1000 MG CAPS Take 1 capsule [...] indicated below and as discussed by case finishing machine adjuster's at Bedside. Disposition: Home Condition: Stable Code Status: Full Code Discharge Instructions Diet Cardiac Diet Low Sodium Activity as Tolerated Follow up: ENEDINA Dickerson [address] [facility] [address] Go on 07/31/2017 Hospital Follow Up Guided Patient Services Guided Patient Services [facility] Pediatrician Managing Partner- JIAN Harmon [phone] Mon-Mon 7:30 AM 4:00 PM Call for any questions or concerns after your discharge home, or for help making follow up appointments. Charlee Chauhan ENEDINA Oswald [address] [place] [address] On 08/08/2017 Post-Hopsital discharge Follow-up. Medication List [...] Refills: 0 Commonly known as: VITAMIN C Rhcyvgk-Bhtveqjam-Pvgkpnw D 600-40-500 MG-MG-UNIT Tb24 Refills: 0 glipiZIDE [...] (none) Author Type: Registered Nurse Filed: 07/29/17 5474 Date of Service: 07/29/17 1345 Status: Signed Tower Air Traffic Control Specialist: Valeria Martinez RN (Registered Nurse) Patient discharged home via private vehicle with family. Heart failure education completed, all discharge instructions discussed. Patient has heart failure education packet and paper prescriptions in possession. All questions answered, all patient belongings with family. Pat ient wheeled out with MINCING MACHINE OPERATOR, all vital signs stable upon discharge. VALERIA MARTINEZ RN onver jose a Transaction, Provider Unknown - 07/28/2017 3:18 PM PST Progress Notes by Carina Quintero CMA at 07/28/17 1518 Author: Carina Quintero CMA Service: (none) Author Type: Janitor Custodian Filed: 07/28/17 1519 Date of Service: 07/28/171517 Status: Signed Tower Air Traffic Control Specialist: Carina Quintero CMA (Janitor Custodian) GPS- Patient enrolled. Scheduled to see Charlee Chauhan on 08/08 and PCP on 07/31 onver jose a Transaction, Provider Unknown - 07/28/2017 2:43 PM PST Case Management by Yousuf Mcfadden RN at 07/28/17 8840 Author: Yousuf Mcfadden RN Service: (none) Author Type: Registered Nurse Filed: 07/28/17 1448 Date of Service: 07/28/17 144 Status: Signed Tower Air Traffic Control Specialist: Yousuf W Hair, RN (Registered Nurse) I met with patient in rounds, he is enrolled in the CHF program through [facility] a nd has follow up schedule with his cardiologists. Gutierrez Momin MD - 07/28/2017 6:56 AM PST Progress Notes by Gutierrez Lopez MD at 07/28/17 0656 Author: Gutierrez Lopez MD Service: Hospitalist Author Type: Physician Filed: 07/28/17 1342 Date of Service: 07/28/1756 Status: Signed Tower Air Traffic Control Specialist: Gutierrez Lopez MD (Physician) [facility] Service: Hospitalist Progress Note Hospital [...] 07/28/17617 Date of Service: 07/28/17612 Status: Signed Tower Air Traffic Control Specialist: Stacey Ley RN (Registered Nurse) Patient again [...] Date of Service: 07/27/17 1015 Status: Signed Tower Air Traffic Control Specialist: Gutierrez Lopez MD (Physician) [facility] Service: Hospitalist Progress Note Hospital [...] (none) Author Type: Registered Nurse Filed: 07/26/17 143 Date of Service: 07/26/171431 Status: Signed Tower Air Traffic Control Specialist: Yousuf Mcfadden RN (Registered Nurse) 07/26/17 143 Discharge Planning Evaluation Admitting Diagnosis CHF Readmission No Living Arrangements Spouse/significant other Support Systems Spouse/significant other;Children Type of Residence Private residence Independent with ADL's Yes Independent with Mobility Yes Mental Status Oriented Resources Financial concerns No Transportation issues No Patient/Family concerns No Prescription Plan Yes Name of Pharmacy [place] Previous home health equipment No Vascular access device No Anticipated Disposition Facility Type Home Met with Desiree and discussed discharge planning, Pt is a 87 y.o., male who is independent an d lives with his in [place]. He goes to the [facility] for his coumadin checks an d doesn't use any DME. Desiree denies having needs for discharge. Patient's PCP is:Janie Beltrán Patient's insurance:Medicare and IPDIA Coverage concerns: none Medication coverage/concerns: yes/no Community resources utilized / needed: none Assistance in transportation: family Identification of any specific education / training: none Barriers to Discharge / Alternative housing needed:none Anticipated DCP: Milburn Hair, Yousuf W Nathen Pereira i, MD - 07/26/2017 8:09 AM PSTFormatting of this note might be different from the o riginal. Progress Notes by Nathen oCughlin MD at 07/26/17 08 Author: Nathen Coughlin MD Service: Hospitalist Author Type: Physician Filed: 07/26/17 1341 Date of Service: 07/26/17808 Status: Signed Tower Air Traffic Control Specialist: Nathen Coughlin MD (Physician) [facility] Service: Hospitalist Progress Note Pt: Desiree Mcconnell AGE/SEX: 87 y.o. male ROOM: [address] [place] [address] : 1930 PCP: JANIE FITZGERALD ADMIT DATE: [...] and managing patient and counseling/coordination. Dictation software, [employer]His Place, used which may contain error for similar [...] 07/25/171950 Date of Service: 07/25/171946 Status: Signed Tower Air Traffic Control Specialist: Demond Sandy () Visit per pt req. Pt sitting up in bed, pt (Marissa) sitting next to bed. Pt welcomed vi sit. Chp provided caring listening. Pt did some life review - talked proudly about his & wif e's 63 years of marriage & 3 children. Pt also explained he & are [employer], an d quite involved there. Day RN & night RN came in to do hand-off report. Pt & both said how great the care has been & how they've enjoyed their nurses. Positive visit with kindly couple. Chaplain Demond Sandy onver jose a Transaction, Provider Unknown - 07/25/2017 2:49 PM PST Pharmacy Note by Renuka Reno RPH at 07/25/17 144 Author: Renuka Reno RPH Service: Pharmacy Author Type: Pharmacist Filed: 07/25/171448 Date of Service: 07/25/171448 Status: Signed Tower Air Traffic Control Specialist: Renuka Reno RPH (Pharmacist) Renal Dosing Monitoring: [...] [place] | | | | | | [address] | | | | | | | | +--------+ + + + + | 02/09/ | Procedure | Cardiology | | | | 2019 | visit | | | | +--------+ + + + + | 03/09/ | Office | Nephrology | Isiah Jade MD | | | 2019 | Visit | | [address] [facility] [address] | | | | | | [address] [place] | | | | | | [address] | | | | | | | [...] | | | Fingerstick | performed at [facility];[address] | | LAB | | | | [facility];[place], [place] | | | | | | [address] | | | | + + + [...] | | | Fingerstick | performed at [facility];[address] | | LAB | | | [address];[place], [place] | | | | | | [address] | | | | + + + [...] | | | Fingerstick | performed at [facility];[address] | | LAB | | | | [address];[place] | | | | | | [address] | | | | + + + [...] | performed at [facility] | | | | | | [facility];[place], [place] | | | | | | [address] | | | | + + + [...] | | | Basophils | performed at [facility], [address] | K/uL | LAB | | | | [address], | | | | | | [place] [address] | | | | + + + [...] EXTERNAL | | | | performed at [facility], [address] | | LAB | | | | [address], | | | | | | [place] [address] | | | | + + + [...] | | | | | | at [facility], [address] | | | | | | [facility], | | | | | | [place] [address] | | | | + + + [...] | | | Fingerstick | performed at [facility];[address] | | LAB | | | | [address];[place], [place] | | | | | | [address] | | | | + + + [...] | | | Fingerstick | performed at [facility];[address] | | LAB | | | [address];[place], [place] | | | | | | [address] | | | | + + + [...] | | | Fingerstick | performed at [facility];[address] | | LAB | | | | [address];[place] | | | | | | [address] | | | | + + + [...] RECEIVEDAbnormal | | | Testing performed at [facility];[address] [place] [address];[place] [address] | | + + + + +---------+ [...] | | | Fingerstick | performed at [facility];[address] | | LAB | | | | [address];[place] | | | | | | [address] | | | | + + + [...] [place];[address] | | | | | | [facility];[place], [place] | | | | | | [address] | | | | + + + [...] | | | Basophils | performed at [facility], [address] | K/uL | LAB | | | | [address], | | | | | | [place] [address] | | | | + + + [...] | | | | | | at [facility], [address] | | | | | | [address], | | | | | | [place] [address] | | | | + + + [...] | | | Fingerstick | performed at [facility];[address] | | LAB | | | | [address];[place] | | | | | | [address] | | | | + + + [...] | | | Fingerstick | performed at [facility];[address] | | LAB | | | | [address];[place] | | | | | | [address] | | | | + + + [...] | | | Urine | performed at [facility], [address] | | | | | | [address], | | | | | | [place] [address] | | | | + + + [...] LAB | | | | performed at [facility], [address] | | | | | | [address], | | | | | | [place] [address] | | | | + + + [...] | | | Fingerstick | performed at [facility];[address] | | LAB | | | | [address];[place] | | | | | | [address] | | | | + + + [...] | | | Fingerstick | performed at [facility];[address] | | LAB | | | | [address];[place] | | | | | | [address] | | | | + + + [...] | | | | | [place] [address] | | | | + + + [...] [place];[address] | | | | | | [facility];[place], [place] | | | | | | [address] | | | | + + + [...] | | | Reticulocyt | performed at [facility], [address] | | LAB | | | e Count | [address], | | | | | | [place] [address] | | | | + + + [...] | | | Basophils | performed at [facility], [address] | K/uL | LAB | | | | [facility], | | | | | | [place] [address] | | | | + + + [...] | | | External | performed at [facility], [address] | | LAB | | | | [address], | | | | | | [place] [address] | | | | + + + [...] | | | | | | at [facility], [address] | | | | | | [address], | | | | | | [place] [address] | | | | + + + [...] | | | Fingerstick | performed at [facility];[address] | | LAB | | | | [address];[place], [place] | | | | | | [address] [...] | | | Fingerstick | performed at [facility];[address] | | LAB | | | | [address];[place] | | | | | | [address] | | | | + + + [...] | | | Fingerstick | performed at [facility];[address] | | LAB | | | | [address];[place], [place] | | | | | | [address] | | | | + + + [...] aortic stenosis. | | | Mitral Valve: Kyjh-zv-zfvvchux mitral regurgitation is present. | | | [...] 1.88 cm AR Dec | | | Calhoun: 2.33 m/s2 AR Dec Time: 1398.10 ms [...] TV A Good: 0.32 m/s TV Dec Calhoun: 2.31 m/s2 | | | TV Dec Time: 215.03 ms TV E Good: 0.49 m/s TV E/A Ratio: | | | 1.53 Tire Mechanic: DOMITILA Authenticated by: JENNIFER SWAIN MD | | | Report Date/Time: -- [id number]:39:27 | | + + + + + [...] evidence of aortic stenosis.Mitral Valve: | | Wqav-lm-dkpzulzv mitral regurgitation is present.Mitral Valve: Mild mitral [...] BPMR-R: 973.47 msLAESV(A-L): 99.35 mlLAAs A2C: 27.25 hc1MGHLI A-L A2C: 99.85 | | mlLAESV MOD A2C: 93.96 mlLALs A2C: 6.31 cmLAAs A4C: 26.56 un5RFVZJ A-L A4C: | | 96.85 mlLAESV MOD A4C: 88.08 mlLALs A4C: 6.18 cmTAPSE: 1.88 cmAR Dec Calhoun: 2.33 | | m/s2AR Dec Time: 1398.10 msAR maxP.73 mmHgAR PHT: 405.45 msAR Vmax: 3.26 | | m/sHR: 64.46 BPMAV maxP.44 mmHgAV meanP.16 mmHgAV Vmax: 1.36 m/Armen | | Vmean: 0.98 m/Armen VTI: 29.20 cmAVA Vmax: 2.97 cm2AVA (VTI): 2.95 rz7RSFD Dopp: | | 5.01 l/minHR: 58.18 BPMLVOT [...] A | | Good: 0.32 m/sTV Dec Calhoun: 2.31 m/s2TV Dec Time: 215.03 msTV E Good: 0.49 m/sTV | | E/A Ratio: 1.53 Tire Mechanic: Sandyticated by: JENNIFER Ward | | Date/Time: -- 36_[id number]_00:39:27 IMPRESSION: 1. Left ventricular systolic function is [...] | |TAPSE: 1.88 cm | |AR Dec Calhoun: 2.33 m/s2 | |AR Dec Time: 1398.10 [...] A Good: 0.32 m/s | |TV Dec Calhoun: 2.31 m/s2 | |TV Dec Time: 215.03 ms | |TV E Good: 0.49 m/s | |TV E/A Ratio: 1.53 | | | |Tire Mechanic: GD | |Authenticated by: JENNIFER SWAIN MD | |Report Date/Time: -- [id number]_49:39:27 | | | |IMPRESSION: | |1. Left [...] | | | Fingerstick | performed at [facility];[address] | | LAB | | | | [address];[place] | | | | | | [address] | | | | + + + [...] [place];[address] | | | | | | [address];[place], [place] | | | | | | [address] | | | | + + + [...] | | | Basophils | performed at [facility], [address] | K/uL | LAB | | | | [address], | | | | | | [place] [address] | | | | + + + [...] EXTERNAL | | | | performed at [facility], [address] | uIU/mL | LAB | | | | [address], | | | | | | [place] [address] | | | | + + + [...] EXTERNAL | | | | performed at [facility], [address] | | LAB | | | | [address], | | | | | | [place] [address] | | | | + + + [...] EXTERNAL | | | | performed at [facility];[address] | | LAB | | | | [address];[place] | | | | | | [address] | | | | + + + [...] EXTERNAL | | | | performed at [facility], [address] | | LAB | | | | [address], | | | | | | [place] [address] | | | | + + + [...] + + | Hemoglobin | 5.5Comment: The Uzbek | 4.0 - 6.0 % | EXTERNAL [...] | | | | | performed at [facility], [address] | | | | | | [address], | | | | | | [place] [address] | | | | + + + [...] W | | | | | | [facility], | | | | | | [place] [address] | | | | + + + [...] | | | | | | ACUTE UT Testing | | | | | | performed at [facility];[address] | | | | | | [address];[place], [place] | | | | | | [address] | | | | + + + [...] | | | Fingerstick | performed at [facility];[address] | | LAB | | | | [address];[place] | | | | | | [address] | | | | + + + [...] | | | | | | ACUTE UT Testing | | | | | | performed at [facility];[address] | | | | | | [facility];[place], [place] | | | | | | [address] | | | | + + + [...] | | | Fingerstick | performed at [facility];[address] | | LAB | | | | [address];[place], [place] | | | | | | [address] [...] - 04/03/2019 7:51 PM PDT DESIREE Kilpatrick EICHHOLZ[id number] years MaleXR | | CHEST 2 VIEW FRONTAL AND RIBTGJC75/5/2017 11:18 AM INDICATION: Shortness of breath | [...] | | | | | | ACUTE UT Testing | | | | | | performed at [facility];[address] | | | | | | [facility];[place], [place] | | | | | | [address] | | | | + + + [...] EXTERNAL | | | | performed at [facility] | | LAB | | | | [facility];[place], [place] | | | | | | [address] | | | | + + + [...] | | Performed by ED provider. Hemoccult director quality assurance Passed. | | + + + + [...] ([phone]), | | | | | | society editor ART BROWN (2) | | | | | | on 07/25/2017 5:09:42 PM | | | | | | | | | | + + + + + + + + | Specimen | + + | | + + + + + | Narrative | Performed At | + + + | Historically converted procedure from [facility] environment | EXTERNAL LAB | + + [...]
--- OUTSIDE RECORDS SUMMARY | ~2020-01-01 | XMS | Encounter Summary ---
Demographics + + + | Address | [address] | | | [place] [address] | + + + | Home Phone [...] [place] | | | | | [address] | | + + + + + | Deanna Lawson | ECON | Unknown | | + + + + + Care Team Providers + +------+ + | Care Improvement Spec Name | Role | Phone | + +------+ + PCP | Unavailable | + +------+ + Encounter Details +--------+ + + + + | Date | Type | Department | Care Team | Description | +--------+ + + + + | 07/28/ | Hospital | [facility] | Robe Prasad | | | 2009 - | Encounter | [facility] | MD Brendan [address] | | | | | CARE [address]LO[address] | [address] [place] [address] | | | 07/31/ | [address] | [place] [address] | | | 2009 | | [place], [place] | [phone] | | | | | [address] | | | | | | [phone] | | | +--------+ + + + [...] [place] | | | | | | [address] | | | | | | | | +--------+ + + + + | 02/09/ | Procedure | Cardiology | | | | 2019 | visit | | | | +--------+ + + + + | 03/09/ | Office | Nephrology | Isiah Jade MD | | | 2019 | Visit | | [address] | | | | | | [address] | | | | | | [address] | | | | | | | [...] | | | The pacemaker is a [employer] Altrua 60, model S601. Serial | | | number is [id number]. The electrode is a Guidant Geckorus electrode model | | | number 4136, length 50 cm. Serial number is [id number]. PACING AND | | | SENSING PARAMETERS [...] DT: | | | 08/11/2010 07:18 A NIDA/arline/[id number]/ Read by TODD HARDEN DO | | | 08/10/2010 09:46 P Electronically signed by Todd Harden DO on | | | 07/02/2013 2:45 PM | | + + + + + | Procedure Note | + + | Leonides Bullock Conversion - 04/14/2019 1:10 PM PDT PREOPERATIVE DIAGNOSES | | 1. Symptomatic bradycardia. | | 2. Atrial fibrillation with slow ventricular response. | | | | POSTOPERATIVE DIAGNOSES | | 1. Symptomatic bradycardia. | | 2. Atrial fibrillation with slow ventricular response. | | | | PROCEDURE | | Single-chamber permanent pacemaker implantation. | | | | SURGEON | | Todd Harden, DO | | | | ESTIMATED BLOOD [...] DATA | | The pacemaker is a [employer] Altrua 60, model S601. Serial | | number is [id number]. | | The electrode is a Guidant Dextrus electrode model number 4136, length | | 50 cm. Serial number is [id number]. | | | | PACING AND SENSING [...] | P | | A | | NIDA/arline/[id number]/ | | | | Read by | | TODD HARDEN DO 08/10/2010 09:46 P | | | | | + + documented in this encounter Visit Diagnoses Not on filedocumented in this encounter"
--- OUTSIDE RECORDS SUMMARY | ~2020-01-01 | XMS | Encounter Summary ---
Demographics + + + | Address | [address] | | | [place] [address] | + + + | Home Phone [...] [place] | | | | | [address] | | + + + + + | Deanna Lawson | ECON | Unknown | | + + + + + Care Team Providers + +------+ + | Care Panel Gluer Name | Role | Phone | + [...] + + | 11/10/ | Procedure | [facility] | | Cardiac pacemaker in | | 2019 | visit | CARDIOLOGY OPHELIA | | situ (Primary Dx) | | | | [address] | | | | | | [place] | | | | | | [address] | | | | | | [phone] | | | +--------+ + + + [...] | | | | | [address] [place], [place] | | | | | | [address] | | | | | | | | +--------+ + + + + | 02/09/ | Procedure | Cardiology | | | | 2019 | visit | | | | +--------+ + + + + | 03/09/ | Office | Nephrology | Isiah Jade MD | | | 2019 | Visit | | [address] [facility] | | | | | | [address] [place], [place] | | | | | | [address] | | | | | | | [...] Mercedez Jensen | LUCA | | Herson, Guyline Operator 11/12/2019 4:50 PMPACEIDKER REMOTE | | | INTERROGATION REPORT Name: Andres Guzmán PCP: Barbara Elkins | | | MD Mukul : 1930MRN: [id number] Primary cardiology | | | provider: Charlee Oswald Primary electrophysiology provider: Enoch | | | [place] Device locks inspector: [employer] Device type: Single | | | chamber [...]
--- OUTSIDE RECORDS SUMMARY | ~2020-01-01 | XMS | Encounter Summary ---
Demographics + + + | Address | [address] | | | [place] [address] | + + + | Home Phone [...] [place] | | | | | [address] | | + + + + + | Deanna Lawson | ECON | Unknown | | + + + + + Care Team Providers + +------+ + | Care Children'S Author Name | Role | Phone | + +------+ + | Barbara Gilman MD | PCP | | + +------+ + Encounter Details +--------+ + + + + | Date | Type | Department | Care Team | Description | +--------+ + + + + | 01/11/ | Orders Only | [facility] | Tristan Rajput, | | | 2018 | | NEPHROLOGY [place]NN[place]NA | RESTAURANT CREW MEMBER [address] | | | | | [address] [facility] [place] | [place] | | | | | [address] [place] [place] | [place] | | | | | [address] | [address] | | | | | [phone] | [phone] | | | | | | | [...] [place] | | | | | | [address] | | | | | | | | +--------+ + + + + | 02/09/ | Procedure | Cardiology | | | | 2019 | visit | | | | +--------+ + + + + | 03/09/ | Office | Nephrology | Isiah Jade MD | | | 2019 | Visit | | [address] [facility] | | | | | | [address] [place] | | | | | | [address] | | | | | | | [...]
--- OUTSIDE RECORDS SUMMARY | ~2020-01-01 | XMS | Clinical Summary ---
Demographics + + + | Address | [address] | | | [place] [address] | + + + | Home Phone [...] [place] | | | | | [address] | | + + + + + | Deanna Lawson | ECON | Unknown | | + + + + + Care Team Providers + +------+ + | Care Shingle Trimmer Name | Role | Phone | + [...] 05/1 | 06/ | Activ | | (PROTONIX) 40 mg | mouth 2 times daily | tablet | | 3/20 | 2/20 | e | | tablet | (before meals) for | | | 20 | 20 | | | | 30 days. | | | | | | + + +---------+----+------+------+-------+ | sucralfate | Take 1 tablet by | 120 | 0 | 05/1 | 06/1 | Activ | | (CARAFATE) 1 g [...] | 1 | 1 | 05/1 | 06/1 | Activ | | mcg/puff inhaler | the lungs every 6 | Inhaler | | 3/20 | 2/20 | e | | | hours for 30 days. | | | 20 | 20 | | + + +---------+----+------+------+-------+ | | Inhale 2 puffs into | 6 g | 0 | 05/1 | 06/1 | Activ | | budesonide-formotero | the [...] | | | | + + +---------+----+------+------+-------+ Active Problems + [...] + + + + | Overview: His [id number]- VASC score is 6( HTN, age, stroke, [...] + + + | Overview: stroke in 2006 stroke with right leg weakness with | [...] mild concentric LVH. He has a single-chamber [employer] | | Scientific ventricular pacemaker that is [...] + + | Overview: He has a [employer] Altrua single-chamber | | RV pacemaker [...] was seen | | today for this Care IT single-chamber device. 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.] | | | | | | fibrillation ([facility]); | | | | | | Chronic diastolic | | | | | | heart failure ([facility]); | | | | | | Dilated [...] disease | | | | | | ([facility]); 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, | | | | | | without long-term | | | | | | current use of | | | | | | insulin ([facility]); | [...] + | Father | | | CHF, [place] | | | | (Age | | [...] + + | Sister | | | [place] | | | | (Age | | [...] | 01/21/ | Office | Cardiology | Dian Sanchez DO | | | 2019 | Visit | | [address] | | | | | | [place] | | | | | | [address] | | | | | | | [...] [place] | | | | | | [address] | | | | | | | [...] | + +--------+------+ +--------+--------+--------+ | Implant Id: [id number] - | Cardia | | | | | [id number] | | Pacer-02/04/2019Implanted: | c | | | | | /[id number] | | Qty: 1 on 02/04/2019 by [...] | | 07/20/ | 3060-0 | | [id number] - SnaImplanted: | | | MEDICAL - | | 2023 | 100S | | Qty: 1 on 12/22/2019 by | | | KIELA | | | /NA | | Melquiades [place] [facility] [place] | | | | | /[id number] | | [facility] | | | | | | 6D | | CENTER | | | | | | | + +--------+------+ +--------+--------+--------+ | Screw Xochitl F/T T2 Ti 5x37.5mm | Screw | | CHASIDY | | 10/18/ | 1896- | | - SnaImplanted: Qty: 1 on | | | MEDICAL - | | 2024 | [id number] | | 12/22/2019 by Melquiades Baez | | | STRY | | | /NA | | DO Regulo at [facility] | | | | | | /[id number] | | [facility] | | | | | | 9B | + +--------+------+ +--------+--------+--------+ | Screw Xochitl F/T T2 Ti 5x37.5mm | Screw | | CHASIDY | | 10/18/ | 1895-12 | | - SnaImplanted: Qty: 1 on | | | MEDICAL - | | 2024 | 037S | | 12/22/2019 by Melquiades Baez | | | STRY | | | /NA | | DO Regulo at [facility] | | | | | | /[id number] | | [facility] | | | | | | 99 | + +--------+------+ +--------+--------+--------+ | Trochanteric NailImplanted: | | | Chasidy | | 07/20/ | 3125-1 | | Qty: 1 on 12/22/2019 by | | | Medical | | 4 | 200S | | Melquiades Baez DO [place] [facility] | | | | | | /NA | | [facility] | | | | | | /[id number] | | [place] | | | | | | E8 [...] + +--------+ + + + | *TERMED* [facility] UPPER GI | Routin | 12/29/2019 | [...] + +--------+ + + + | GATO CACERES CG8, | Routin | 12/22/2019 | | [...] +---+--------+ + +--------+ + + + | POC [...] + + from Last 3 Months Results POC Glucose (01/01/2020 11:24 AM PDT)Only the [...] | | | POC | performed at [facility] | | LABORATORY | | | | [address];[place], [place] | | | | | | [address] | | | | + + + + + + + + | Specimen | + + | | + + + + + + + | Performing | Address | City/State/Zipcode | Phone Number | | Organization | | | | + + + + + | [facility] | [address] | [place] [address] | [phone] | + + + + + CBC [...] | | | Absolute | performed at [facility];[address] | K/uL | LABORATORY | | | | [address];[place] | | | | | | [address] | | | | + + + + + + + + | Specimen | + + | Blood | + + + + + + + | Performing | Address | City/State/Zipcode | Phone Number | | Organization | | | | + + + + + | [facility] | [address] | [place] [address] | [phone] | + + + + + Basic [...] 23 (L)Comment: GFR <60: | >60 | [facility] | | | GFR | CHRONIC [...] | | | | | performed at [facility] | | | | | | [facility];[place], [place] | | | | | | [address] | | | | + + + + + + + + | Specimen | + + | Blood | + + + + + + + | Performing | Address | City/State/Zipcode | Phone Number | | Organization | | | | + + + + + | [facility] | [address] | [place] [address] | [phone] | + + + + + Hemoglobin [...] 9.8 (L) | 13.2 - 17.0 | [facility] | | | | | g/dL | LABORATORY | | + + + + + + | Hematocrit | 29.6 (L)Comment: Testing | 39.0 - 50.0 % | [facility] | | | | performed at [facility];[address] | | LABORATORY | | | | [address];[place], [place] | | | | | | [address] | | | | + + + + + + + + | Specimen | + + | Blood | + + + + + + + | Performing | Address | City/State/Zipcode | Phone Number | | Organization | | | | + + + + + | [facility] | [address] | [place] [address] | [phone] | + + + + + Surgical [...] | | technical component was performed by [facility], [address] [place] [address] | | | [place] [address] (Minister Assistant: Padmini Sellers MD; CLIA# | | | [id number]). Professional interpretation was performed by[facility] | | | [facility], [address], | | | [place] [address] (Minister Assistant: Oscar Maynard M.D.; CLIA#: | | | [id number]). Diagnostician: Padmini Sellers | | | MDPathologistElectronically [...] | |The technical component was performed by [facility], [address] [place] [address] (Minister Assistant: Padmini Sellers MD; CLIA# [id number]). Professional interpretation was performed by | | |[facility], [address] [address] (Minister Assistant: Oscar Maynard M.D.; CLIA#: [id number]). | | | | | |Diagnostician: Padmini [...] Performed At | + + + | [facility] | [facility] | | [facility] | PROVATION | | CenterGastroenterology | | | Patient Name: Andres Guzmán | | | Procedure Date: 12/29/2019 8:36 AMMRN: [id number] | | | of : 1930 | [...] the anesthesiologist and the | | | auto transmission technician in the pre-procedure area in the [...] | | | with Gold probe 7 British x 5 pulses was successful with | [...] | | | AMNumber of Addenda: 0 [facility] | | | - Check hemoglobin q 6 hours for one day. | | | | | | | | |LAMONT HERNANDEZ MD | | |12/29/2019 10:19:54 AM | | |This report has been signed electronically. | | | | | |Note Initiated On: 12/29/2019 8:36 AM | | |Number of Addenda: 0 | | | | | | [facility] | | + + + + +---------+ [...] | | | | | performed at [facility];[address] | | | | | | [address] [facility];[place], [place] | | | | | | [address] | | | | + + + + + + + + | Specimen | + + | Blood | + + + + + + + | Performing | Address | City/State/Zipcode | Phone Number | | Organization | | | | + + + + + | [facility] | [address] | [place] [address] | [phone] | + + + + + Fecal [...] | | LABORATORY | | | | [facility];[address];[place] [address] | | | | + + + + + + + + | Specimen | + + | Stool - Stool | | specimen (specimen) | + + + + + + + | Performing | Address | City/State/Zipcode | Phone Number | | Organization | | | | + + + + + | [facility] | [address] | [place] [address] | [phone] | + + + + + Red [...] BANK | Testing performed at | | [facility] | | | COMMENT | [facility];[address] | | LABORATORY | | | | [address];[place] [address] | | | | + + + + + + + + | Specimen | + + | | + + + + + + + | Performing | Address | City/State/Zipcode | Phone Number | | Organization | | | | + + + + + | [facility] | [address] | [place] [address] | [phone] | + + + + + Type [...] + + + | BB BAND | [id number] | | [facility] | | | | | | LABORATORY | | + + + + + + | UNIT # | [id number] | | [facility] | | | | [...] + + + | UNIT # | [id number] | | [facility] | | | | [...] | | | RESULT | performed at [facility] | | LABORATORY | | | | [address];[place] | | | | | | [address] | | | | + + + + + + + + | Specimen | + + | Blood | + + + + + + + | Performing | Address | City/State/Zipcode | Phone Number | | Organization | | | | + + + + + | [facility] | [address] | [place] [address] | [phone] | + + + + + Procalcitonin [...] PROCALCITON | 0.41Comment: | <0.5 ng/mL | [facility] | | | IN | INTERPRETIVE [...] | | | | | | at [facility];[address] [place] [address] | | | | | | [facility];[place] [address] | | | | + + + + + + + + | Specimen | + + | Blood | + + + + + + + | Performing | Address | City/State/Zipcode | Phone Number | | Organization | | | | + + + + + | [facility] | [address] | [place] [address] | [phone] | + + + + + Vitamin D, Deficiency Screen (25-Hydroxy) (12/27/2019 5:04 AM PDT) + + + + + + | Component | Value | Ref Range | Performed | Pathologist | | | | | At | Signature | + + + + + + | Vit D, | 25.2 (L)Comment: Vitamin | 30.0 - 100.0 | [facility] | | | 25-Hydroxy | D deficiency has been | ng/mL | LABORATORY | | | | defined by the [place] | | | | | | [facility] and an | | | | | [...] IOM | | | | | | ([place] [facility]). | | | | | [...] | | | | | performed at [facility], | | | | | | [address], | | | | | | [facility] [address] | | | | + + + + + + + + | Specimen | + + | Blood | + + + + + + + | Performing | Address | City/State/Zipcode | Phone Number | | Organization | | | | + + + + + | [facility] | [address] | [place] [address] | [phone] | + + + + + Potassium (12/27/2019 12:08 AM PDT) + + + + + + | Component | Value | Ref Range | Performed | Pathologist | | | | | At | Signature | + + + + + + | K | 4.0Comment: Testing | 3.5 - 4.9 | [facility] | | | | performed at [facility];[address] | mmol/L | LABORATORY | | | | [address];[place], [place] | | | | | | [address] | | | | + + + + + + + + | Specimen | + + | Blood | + + + + + + + | Performing | Address | City/State/Zipcode | Phone Number | | Organization | | | | + + + + + | [facility] | [address] | [place] [address] | [phone] | + + + + + Magnesium [...] Testing | 1.7 - 2.4 mg/dL | [facility] | | | | performed at [facility];[address] | | LABORATORY | | | | [facility];[place], [place] | | | | | | [address] | | | | + + + + + + + + | Specimen | + + | Blood | + + + + + + + | Performing | Address | City/State/Zipcode | Phone Number | | Organization | | | | + + + + + | [facility] | [address] | [place] [address] | [phone] | + + + + + ECG [...] Testing | 82 - 167 mg/dL | [facility] | | | COMPLEMENT | performed at [facility], | | LABORATORY | | | | [address], | | | | | | [facility] [address] | | | | + + + + + + + + | Specimen | + + | | + + + + + + + | Performing | Address | City/State/Zipcode | Phone Number | | Organization | | | | + + + + + | [facility] | [address] | [place] [address] | [phone] | + + + + + Complement [...] | | | COMPLEMENT | performed at [facility], | | LABORATORY | | | | [address], | | | | | | [facility] [address] | | | | + + + + + + + + | Specimen | + + | | + + + + + + + | Performing | Address | City/State/Zipcode | Phone Number | | Organization | | | | + + + + + | [facility] | [address] | [place] [address] | [phone] | + + + + + Parathyroid Hormone, Intraoperative (12/26/2019 4:25 AM PDT) + + + + + + | Component | Value | Ref Range | Performed | Pathologist | | | | | At | Signature | + + + + + + | PTH Intact | 167.0 (H)Comment: | 8.7 - 79.6 | [facility] | | | | Testing performed at | pg/mL | LABORATORY | | | | [facility];[address] | | | | | | [address];[place] [address] | | | | + + + + + + + + | Specimen | + + | | + + + + + + + | Performing | Address | City/State/Zipcode | Phone Number | | Organization | | | | + + + + + | [facility] | [address] | [place] [address] | [phone] | + + + + + Renal [...] | | | | | | [address] [facility], | | | | | | [place] [address] | | | | + + + + + + + + | Specimen | + + | Blood | + + + + + + + | Performing | Address | City/State/Zipcode | Phone Number | | Organization | | | | + + + + + | [facility] | [address] | [place] [address] | [phone] | + + + + + ECHO [...] [facility] | | | | performed at [facility];[address] | | LABORATORY | | | | [address];[place], [place] | | | | | | [address] | | | | + + + + + + + + | Specimen | + + | Blood | + + + + + + + | Performing | Address | City/State/Zipcode | Phone Number | | Organization | | | | + + + + + | [facility] | [address] | [place] [address] | [phone] | + + + + + Immunoglobulin, Free Light Chain (12/25/2019 4:22 AM PDT) + + + + + + | Component | Value | Ref Range | Performed | Pathologist | | | | | At | Signature | + + + + + + | Macy Free | 121.2 (H) | 3.3 - [...] + + + + + + | Macy/Lambd | 1.25Comment: Testing | 0.26 - 1.65 | [facility] | | | a Free | performed at [facility] | | LABORATORY | | | Light Chain | [place] [address] | | | | | Ratio | [place] [address] | | | | + + + + + + + + | Specimen | + + | Blood | + + + + + + + | Performing | Address | City/State/Zipcode | Phone Number | | Organization | | | | + + + + + | [facility] | [address] | [place] [address] | [phone] | + + + + + Sedimentation Rate (12/25/2019 4:22 AM PDT) + + + + + + | Component | Value | Ref Range | Performed | Pathologist | | | | | At | Signature | + + + + + + | ESR | 6Comment: Testing | 0 - 20 mm/Hr | [facility] | | | | performed at [facility], [address] | | LABORATORY | | | | [address], | | | | | | [place] [address] | | | | + + + + + + + + | Specimen | + + | Blood | + + + + + + + | Performing | Address | City/State/Zipcode | Phone Number | | Organization | | | | + + + + + | [facility] | [address] | [place] [address] | [phone] | + + + + + Glomerular [...] [place] | | | | | | [address] | | | | + + + + + + + + | Specimen | + + | Blood | + + + + + + + | Performing | Address | City/State/Zipcode | Phone Number | | Organization | | | | + + + + + | [facility] | [address] | [place] [address] | [phone] | + + + + + Hepatitis [...] | | | | | 0.9The [facility] recommends | | | | | | that a positive HCV | | | | | | antibody resultbe | | | | | | followed up with a HCV | | | | | | Nucleic Acid | | | | | | Amplificationtest | | | | | | (033327).Testing | | | | | | performed at [facility], | | | | | | [address], | | | | | | [facility] [address] | | | | + + + + + + + + | Specimen | + + | Blood | + + + + + + + | Performing | Address | City/State/Zipcode | Phone Number | | Organization | | | | + + + + + | [facility] | [address] | [place] [address] | [phone] | + + + + + Cytoplasmic [...] | | | | | with both [facility] and | | | | | | [...] | | | | | performed by [facility], | | | | | | [address] [facility], | | | | | | [facility] [address] | | | | + + + + + + + + | Specimen | + + | Blood | + + + + + + + | Performing | Address | City/State/Zipcode | Phone Number | | Organization | | | | + + + + + | [facility] | [address] | [place] [address] | [phone] | + + + + + Lactate Dehydrogenase (12/25/2019 4:22 AM PDT) + + + + + + | Component | Value | Ref Range | Performed | Pathologist | | | | | At | Signature | + + + + + + | LDH TOTAL | 154Comment: Testing | 120 - 246 U/L | [facility] | | | | performed at [facility];[address] | | LABORATORY | | | | [address];[place] | | | | | | [address] | | | | + + + + + + + + | Specimen | + + | Blood | + + + + + + + | Performing | Address | City/State/Zipcode | Phone Number | | Organization | | | | + + + + + | [facility] | [address] | [place] [address] | [phone] | + + + + + Protein/Creatinine Ratio, Urine (12/25/2019 12:01 AM PDT) + + + + + + | Component | Value | Ref Range | Performed | Pathologist | | | | | At | Signature | + + + + + + | PRO/CREA | 0.942Comment: Testing | | [facility] | | | RATIO,URINE | performed at [facility], [address] | | LABORATORY | | | | [address], | | | | | | [place] [address] | | | | + + + + + + + + | Specimen | + + | Urine | + + + + + + + | Performing | Address | City/State/Zipcode | Phone Number | | Organization | | | | + + + + + | [facility] | [address] [facility] | [place] [address] | [phone] | + + + + + Protein, Urine, Random (12/25/2019 12:01 AM PDT) + + + + + + | Component | Value | Ref Range | Performed | Pathologist | | | | | At | Signature | + + + + + + | Protein, | 131Comment: NO NORMAL | mg/dL | [facility] | | | Urine | RANGE ESTABLISHEDTesting | | LABORATORY | | | | performed at [facility], [address] | | | | | [address], | | | | | | [place] [address] | | | | + + + + + + + + | Specimen | + + | | + + + + + + + | Performing | Address | City/State/Zipcode | Phone Number | | Organization | | | | + + + + + | [facility] | [address] | [place] [address] | [phone] | + + + + + Creatinine, [...] | 139.0Comment: NO NORMAL | mg/dL | [facility] | | | random | RANGE ESTABLISHEDTesting | | LABORATORY | | | urine | performed at [facility], [address] | | | | | | [address] [facility], | | | | | | [place] [address] | | | | + + + + + + + + | Specimen | + + | | + + + + + + + | Performing | Address | City/State/Zipcode | Phone Number | | Organization | | | | + + + + + | [facility] | [address] | [place] [address] | [phone] | + + + + + XR [...] | | | Arterial, | performed at [facility];[address] | | LABORATORY | | | POC | [address];[place], [place] | | | | | | [address] | | | | + + + + + + + + | Specimen | + + | | + + + + + + + | Performing | Address | City/State/Zipcode | Phone Number | | Organization | | | | + + + + + | [facility] | [address] | [place] [address] | [phone] | + + + + + Coronavirus (COVID-19) NAAT (12/24/2019 1:10 PM PDT) + + + + + + | Component | Value | Ref Range | Performed | Pathologist | | | | | At | Signature | + + + + + + | SARS-CoV-2, | NEGATIVEComment: Testing | NEG | [facility] | | | YOU | performed at [facility];[address] | | LABORATORY | | | (COVID-19) | [address];[place] | | | | | | [address] | | | | + + + + + + + + | Specimen | + + | Tissue - Entire | | nasopharynx (body | | structure) | + + + + + + + | Performing | Address | City/State/Zipcode | Phone Number | | Organization | | | | + + + + + | [facility] | [address] | [place] [address] | [phone] | + + + + + Culture, [...] LABORATORY | | | | [address];[place] [address] | | | | + + + [...] [place] | | | | | | [address]Misoduo: Testing | | | | | | performed at [facility], [address] | | | | | | [address], [place] | | | | | | [address] | | | | + + + + + + + + | Specimen | + + | Blood - Peripheral | | blood specimen | | (specimen) | + + + + + + + | Performing | Address | City/State/Zipcode | Phone Number | | Organization | | | | + + + + + | [facility] | [address] | [place] [address] | [phone] | + + + + + Urinalysis [...] - 1.030 | [facility] | | | [place], | | | LABORATORY | | | [...] | | | | | [place] [address] | | | | + + + [...] | + + + + + | [facility] | [address] | [place] [address] | [phone] | + + + + + Sodium, [...] | | | | | | [facility], | | | | | | [place] [address] | | | | + + + [...] | + + + + + | [facility] | [address] | [place] [address] | [phone] | + + + + + Lactic Acid (12/24/2019 12:27 PM PDT) + + + + + + | Component | Value | Ref Range | Performed | Pathologist | | | | | At | Signature | + + + + + + | Lactate, | 1.6Comment: Testing | 0.4 - 2.0 | [facility] | | | Serum | performed at [facility] [place] | mmol/L | LABORATORY | | | | [address];[place] | | | | | | [address] | | | | + + + + + + + + | Specimen | + + | Blood | + + + + + + + | Performing | Address | City/State/Zipcode | Phone Number | | Organization | | | | + + + + + | [facility] | [address] | [place] [address] | [phone] | + + + + + CBC [...] | | performed at [facility] [place] | | | | | | [address];[place] | | | | | | [address] | | | | + + + + + + + + | Specimen | + + | Blood | + + + + + + + | Performing | Address | City/State/Zipcode | Phone Number | | Organization | | | | + + + + + | [facility] | [address] | [place] [address] | [phone] | + + + + + Phosphorus (12/23/2019 4:04 AM PDT) + + + + + + | Component | Value | Ref Range | Performed | Pathologist | | | | | At | Signature | + + + + + + | Phosphorus | 4.6Comment: Testing | 2.3 - 4.8 mg/dL | [facility] | | | | performed at [facility] | | LABORATORY | | | | [address];[place], [place] | | | | | | [address] | | | | + + + + + + + + | Specimen | + + | Blood | + + + + + + + | Performing | Address | City/State/Zipcode | Phone Number | | Organization | | | | + + + + + | [facility] | [address] | [place] [address] | [phone] | + + + + + Hemoglobin (12/22/2019 9:37 PM PDT) + + + + + + | Component | Value | Ref Range | Performed | Pathologist | | | | | At | Signature | + + + + + + | Hemoglobin | 9.1 (L)Comment: Testing | 13.2 - 17.0 | [facility] | | | | performed at [facility] | g/dL | LABORATORY | | | | [address];[place] | | | | | | [address] | | | | + + + + + + + + | Specimen | + + | Blood | + + + + + + + | Performing | Address | City/State/Zipcode | Phone Number | | Organization | | | | + + + + + | [facility] | [address] | [place] [address] | [phone] | + + + + + Hematocrit (12/22/2019 9:37 PM PDT) + + + + + + | Component | Value | Ref Range | Performed | Pathologist | | | | | At | Signature | + + + + + + | Hematocrit | 27.4 (L)Comment: Testing | 39.0 - 50.0 % | [facility] | | | | performed at [facility] | | LABORATORY | | | | [facility];[place], [place] | | | | | | [address] | | | | + + + + + + + + | Specimen | + + | Blood | + + + + + + + | Performing | Address | City/State/Zipcode | Phone Number | | Organization | | | | + + + + + | [facility] | [address] | [place] [address] | [phone] | + + + + + Red [...] | | | POC | performed at [facility] | g/dL | LABORATORY | | | | [address];[place], [place] | | | | | | [address] | | | | + + + + + + + + | Specimen | + + | | + + + + + + + | Performing | Address | City/State/Zipcode | Phone Number | | Organization | | | | + + + + + | [facility] | [address] | [place] [address] | [phone] | + + + + + Airway [...] detection Performing provider: Ja | | | JXASON Hill Authorizing provider: Ja Hill CRNA | [...] | | | POC | performed at [facility] | g/dL | LABORATORY | | | | [address];[place], [place] | | | | | | [address] | | | | + + + + + + + + | Specimen | + + | | + + + + + + + | Performing | Address | City/State/Zipcode | Phone Number | | Organization | | | | + + + + + | [facility] | [address] | [place] [address] | [phone] | + + + + + LABS [...] Mercedez Jensen | LUCA | | Herson Radiotelegraphist 11/12/2019 4:50 PMPACEMAKER REMOTE | | | INTERROGATION REPORT Name: Andres Guzmán PCP: Barbara Elkins | | | MD Mukul : 1930MRN: [id number] Primary cardiology | | | provider: Charlee Oswald Primary electrophysiology provider: Enoch | | | Jay Device chief engineer drilling and recovery: Care IT Device type: Single | | | chamber [...] +--------+ +---------+--------+ | MEDICARE | MEDICA | [id number] | 04/21/19 | [phone] | | Medica | | | RE | | 97-Pre | 5 | | re | | | PART A | | sent | | | | | | AND B | | | | | | + +--------+ +--------+ +---------+--------+ | INDIVIDUAL ASSURANCE | INDIVI | [id number] | | | | Indemn | | [...] quique | | | 1 (Home) | [phone] | + +--------+ +--------+ + + Advance Directives + + + + + | Type | Date Recorded | Patient | Explanation | | | | Grocery Clerk | | + + + + + | Power of | | | | | Cell Liner | | | | + + + + + | Advance | 12/24/2019 7:13 | | | | Directive | PM | | | + + + + + + + + + + | Code Status | Date | Date | Comments | | | Activated | Inactivated | | + + + + + | Full Code | 12/22/2019 | | | | | 12:10 PM | | | + + + + + + + + +---+ | | | | | + + + +---+ | Full Code | 12/21/2019 | 12/22/2019 | | | | 9:26 PM | 12:10 PM | | + + + +---+
--- OUTSIDE RECORDS SUMMARY | ~2020-01-01 | XMS | Encounter Summary ---
Demographics + + + | Address | [address] | | | [place] [address] | + + + | Home Phone [...] [place] | | | | | [address] | | + + + + + | Deanna Lawson | ECON | Unknown | | + + + + + Care Team Providers + +------+ + | Care Field Crop Technical Officer Name | Role | Phone | + +------+ + | Barbara Gilman MD | PCP | | + +------+ + Encounter Details +--------+---------+ + + + | Date | Type | Department | Care Team | Description | +--------+---------+ + + + | 05/07/ | Office | [facility] | Enoch Thompson, | Cardiac pacemaker in | | 2019 | Visit | CARDIOLOGY [place] | [address] | situ; Permanent | | | | [address] | [place], [place] | atrial fibrillation | | | | [place], [place] | [address] | (HCC) | | | | [address] | | | | | | [phone] | | | +--------+---------+ + + + [...] pacemaker in situ Overview He has a [place] [employer] Altrua single-chamber RV pacemaker that was [...] function was seen tofrancesca ay for this [place] [employer] single-chamber device. The pacing threshold was [...] mild concentric LVH. He has a single-chamber [place] [employer] ventricular pacemaker that is nearing elective [...] mild concentric LVH. He has a single-chamber [place] [employer] ventricular pacemaker that is nearing elective replacement indicator status. He has been pacing the right ventricle 99% o f the time. Anticoagulated with apixaban. He has only been taking 2.5 mg twice per day, because of cierra al dysfunction and age. The chads 2 vascular score is 4. 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 Priority: High Note Last Updated: 05/07/2019 He has a [place] [employer] Altrua single-chamber RV pacemaker that was [...] function was seen tofrancesca marcus for this [employer] [employer] single-chamber device. The pacing threshold was [...] arora. Type 2 diabetes mellitus without complication ([facility]) 06/04/2015 Reading: Continue current therapy. I can [...] notes on file Myrtle Esteves Me dical Inoculator - 05/07/2019 11:30 AM Sheela COOPER Note- [...] 01/21/ | Office | Cardiology | Dina Sanchez, DO | | | 2020 | Visit | | [address] | | | | | | [place] | | | | | | [address] | | | | | | | | +--------+ + + + + | 02/09/ | Procedure | Cardiology | | | | 2019 | visit | | | | +--------+ + + + + | 03/09/ | Office | Nephrology | Isiah Jade MD | | | 2019 | Visit | | [address] [facility] | | | | | | [address] [place] | | | | | | [address] | | | | | | | | +--------+ + + + + documented as of this encounter Visit Diagnoses + + | Diagnosis | + + | Cardiac pacemaker in situ | + + | Permanent atrial fibrillation (HCC) Atrial fibrillation | + + documented in this encounter
--- OUTSIDE RECORDS SUMMARY | ~2020-01-01 | XMS | Encounter Summary ---
Demographics + + + | Address | [address] | | | [place] [address] | + + + | Home Phone | | + + + | Preferred Language | Unknown | + + + | Marital Status | | + + + | Hoahaoism Affiliation | 1001 | + + + | Race | Unknown | + + + | Ethnic Group | Unknown | + + + Author + + + | Author | [facility] | | | and [place] | + + + | Organization | [facility] | | | [...] [place] | | | | | [address] | | + + + + + | Deanna Lawson | ECON | Unknown | | + + + + + Care Team Providers + +------+ + | Care Instructor Traffic Safety Name | Role | Phone | + [...] Provider Unknown | | | | | [place], [place] | | | | | | [address] | (Fax) | | | | | [phone] | | | +--------+ + + + [...] [place] | | | | | | [address] | | | | | | | | +--------+ + + + + | 02/09/ | Procedure | Cardiology | | | | 2019 | visit | | | | +--------+ + + + + | 03/09/ | Office | Nephrology | Isiah Jade MD | | | 2019 | Visit | | [address] [facility] | | | | | | [address] [place] | | | | | | [address] | | | | | | | [...]
--- OUTSIDE RECORDS SUMMARY | ~2020-01-01 | XMS | Encounter Summary ---
Demographics + + + | Address | [address] | | | [place] [address] | + + + | Home Phone [...] [place] | | | | | [address] | | + + + + + | Deanna Lawson | ECON | Unknown | | + + + + + Care Team Providers + +------+ + | Care Engineering Operations Leader Name | Role | Phone | + +------+ + | Barbara Gilman MD | PCP | | + +------+ + Encounter Details +--------+--------+ + + + | Date | Type | Department | Care Team | Description | +--------+--------+ + + + | 12/20/ | Intake | [facility] | | N/A | | 2019 | | [place] [address] | | | | | | [facility] | | | | | | [place], [place] | | | | | | [address] | | | | | | [phone] | | | +--------+--------+ + + + Social History + +-------+ [...] [place] | | | | | | [address] | | | | | | | | +--------+ + + + + | 02/09/ | Procedure | Cardiology | | | | 2019 | visit | | | | +--------+ + + + + | 03/09/ | Office | Nephrology | Isiah Jade MD | | | 2019 | Visit | | [facility] | | | | | | [address] [place] | | | | | | [address] | | | | | | | [...]
--- OUTSIDE RECORDS SUMMARY | ~2020-01-01 | XMS | Encounter Summary ---
Demographics + + + | Address | [address] | | | [place] [address] | + + + | Home Phone [...] [place] | | | | | [address] | | + + + + + | Deanna Lawson | ECON | Unknown | | + + + + + Care Team Providers + +------+ + | Care As400 Administrator Name | Role | Phone | [...] + + | 12/21/ | Anesthesia | [facility] | Ja Hill, | | | 2019 | Event | [facility] | WIRE ROPE FABRICATION SUPERVISOR [address] | | | | | OPERATING RO[address] | [place] [address] | | | | | [address] | [phone] | | | | | [place] | | | | | | [address] | | | | | | [phone] | | | +--------+ + + + [...] +----+---+ + + | | 0 | Miranda | | | | 9 | 43-degrees [...] Savana [place]den RN | | IV | yjrl-oug-ignqay catheter system; | | | | | [...] [place] | | | | | | [address] | | | | | | | [...] [place] | | | | | | [address] | | | | | | | [...] 200 mg | | | | Intravenous, Megan MEEK Sun | | 20 9:42 | | [...] | | | | Intravenous, PRN, Starting Mon | | 20 8:57 | | | [...]
--- OUTSIDE RECORDS SUMMARY | ~2020-01-01 | XMS | Clinical Summary ---
Demographics + + + | Address | [address] | | | [place] [address] | + + + | Home Phone | | + + + | Preferred Language | Unknown | + + + | Marital Status | | + + + | Adventist Affiliation | 1001 | + + + | Race | Unknown | + + + | Ethnic Group | Unknown | + + + Author + + + | Author | [facility] [employer] (Historical as of | | | 04-06-19) | + + + | Organization | [facility] [employer] (Historical as of | | | 04-06-19) [...] [place] | | | | | [address] | | + + + + + | Deanna Lawson | ECON | Unknown | | + + + + + Care Team Providers + +------+ + | Care Welding Process Specialist Name | Role | Phone | [...] mild concentric LVH. He has a single-chamber [place] | | Scientific ventricular pacemaker that is [...] | Pacemaker/ICD: 07/30/2010, SYDNEE Kinsey S601, SN: [id number].Last Cath: | | naLast Echo, 06/10/2015: LV [...] + + | Overview: He has a [employer] Altrua single-chamber | | RV pacemaker that [...] | | 07/30/2010, SYDNEE Kinsey S601, SN: [id number].[facility]. | + + + + [...] | c | | | | | /[address] | | Enoch Thompson MD | Rhythm [...] +------+-------+ + | MEDICARE | MEDICA | [id number] | | | [address] | | | RE | | | | [place] [address] | | | IP-OP | | | | | + +--------+ +------+-------+ + | COMMERCIAL OTHER | COMMER | [id number] | | | | | | CIAL [...] Self | [birth year] | Home: | [address] | | [place] | al/Amrik | | 1930 | [phone] [place] | | | quique | | | [phone] | [phone] | + +--------+ +--------+ + +
--- OUTSIDE RECORDS SUMMARY | ~2020-01-01 | XMS | Encounter Summary ---
Demographics + + + | Address | [address] | | | [place] [address] | + + + | Home Phone | | + + + | Preferred Language | Unknown | + + + | Marital Status | | + + + | Adventism Affiliation | 1001 | + + + [...] [place] | | | | | [address] | | + + + + + | Deanna Lawson | ECON | Unknown | | + + + + + Care Team Providers + +------+ + | Care Oval Or Circular Glass Cutter Name | Role | Phone | + +------+ + | Barbara Gilman MD | PCP | | + +------+ + Encounter Details +--------+ + + + + | Date | Type | Department | Care Team | Description | +--------+ + + + + | 01/25/ | Orders Only | [facility] | Enoch Thompson, | | | 2019 | | CARDIOLOGY [place] | [address] | | | | | [address] | [place], [place] | | | | | [place], [place] | [address] | | | | | [address] | | | | | | [phone] | | | +--------+ + + + [...] [place] | | | | | | [address] | | | | | | | [...] [place] | | | | | | [address] | | | | | | | [...]
--- OUTSIDE RECORDS SUMMARY | ~2020-01-01 | XMS | Encounter Summary ---
Demographics + + + | Address | [address] | | | [place] [address] | + + + | Home Phone [...] [place] | | | | | [address] | | + + + + + | Deanna Lawson | ECON | Unknown | | + + + + + Care Team Providers + +------+ + | Care Cloud Developer Name | Role | Phone | [...] [address] [address] | | | | | [place], [place] | [place] [address] | | | | | [address] | [phone] | | | | | [phone] | | | +--------+ + + + [...] [place] | | | | | | [address] | | | | | | | | +--------+ + + + + | 02/09/ | Procedure | Cardiology | | | | 2019 | visit | | | | +--------+ + + + + | 03/09/ | Office | Nephrology | Isiah Jade MD | | | 2019 | Visit | | [address] [facility] | | | | | | [address] [place] | | | | | | [address] | | | | | | | [...] TR Vmax: 3.45 m/s | | | Concrete Block Mason: DAR Authenticated by: Vikki Godoy Report | | | Date/Time: -- [id number] | | + + + + ------+ [...] cmLVPWd: 0.86 cmLVOT Area: | | 3.66 ge0IGML Diam: 2.15 cm%FS: 30.74 %EF(Teich): 57.74 %ESV(Teich): [...] mlLAESV Index (A-L): 55.88 ml/m2LAAs A2C: 25.46 lr8RKVUP A-L | | A2C: 88.15 mlLALs A2C: 6.24 cmLAAs A4C: 29.53 tq7OHCSA A-L A4C: 110.72 mlLALs | | A4C: 6.68 cmRAAs: 31.00 tc7ATEYH A-L: 119.55 mlRAESV MOD: 117.88 mlRALs: 6.82 | | cmTAPSE: 1.87 cmAV maxP.43 mmHgAV meanP.22 mmHgAV Vmax: 1.05 m/Armen | | Vmean: 0.69 m/Armen VTI: 18.19 cmAVA Vmax: 2.31 cm2AVA (VTI): 2.75 bx1KCWA Vmax: | | 0.00 cm2/m2AVAI (VTI): 0.00 cm2/m2LVOT maxP.76 mmHgLVOT meanP.05 mmHgLVSI | | Dopp: 27.38 ml/m2LVSV Dopp: 50.12 mlLVOT Vmax: 0.66 m/sLVOT Vmean: 0.48 m/sLVOT | | VTI: 13.68 cmMV A Good: 0.02 m/sMV DecT: 135.32 msMV E Good: 0.84 m/sMV E/A | | Ratio: 38.78MV PHT: 39.24 msMVA By PHT: 5.60 ai2Qdhitz e': 0.03 m/sSeptal E/e': | | 21.63Lateral e': 0.08 m/sLateral E/e': 10.19RAP: 15 mmHgRVSP: 62.86 mmHgTR | | maxP.86 mmHgTR Vmax: 3.45 m/s Concrete Block Mason: DENISSEuthenticated by: Jayne | | [facility] CenterhedReport Date/Time: -- [id number]:23:50 IMPRESSION: 1. The left ventricle is | [...] |TR Vmax: 3.45 m/s | | | |Concrete Block Mason: | |Authenticated by: Vikki Godoy | |Report Date/Time: -- [id number]:23:50 | | | |IMPRESSION: | |1. The [...]
--- OUTSIDE RECORDS SUMMARY | ~2020-01-01 | XMS | Encounter Summary ---
Demographics + + + | Address | [address] | | | [place] [address] | + + + | Home Phone [...] [place] | | | | | [address] | | + + + + + | Deanna Lawson | ECON | Unknown | | + + + + + Care Team Providers + +------+ + | Care Teacher Physically Impaired Name | Role | Phone | + [...] + + | 12/21/ | Surgery | [facility] | Melquiades Baez | NAILING IM BETSY FEMUR | | 2019 | [facility] | DO [address] | - [address] | | | | OPERATING ROOM [address] | [facility], | | | | | [address] | [place] [address] | | | | | [place], [place] | [phone] | | | | | [address] | | | | | | [phone] | | | +--------+---------+ + + + [...] documented as of this encounter Progress Notes Deanna Doe RN - 01/01/2020 11:45 AM PDTWound care RN came to see pt to follow up on his hip incision. RN states PA has changed previously saturated dressing and pt is DC'ing home; ride is waiting downstairs. Deanna Doe RN, CMSRN, [facility] Inpatient Wound Ostomy Care [phone] 01/01/2020 11:46 AM Chai, Savana Irving RN [...] BUNCREARATIO 25 12/31/2019 PTH 72.57 (A) 04/01/2019 [id number] 25.2 (L) 12/27/2019 CALCIUM 8.5 12/31/2019 PHOS [...] been following up with [facility] in [place]. He has unrecovered acute kidney injury and a higher baseline creatinine. At this time there is no clinical uremia, refractory volume overload, refractory acidosis, refractory hyperkalemia and no urgent indication of starting SHARED SERVICES REPRESENTATIVE. Neither is there an indication for diagnostic [...] Incentive spirometry. Transfuse Prn. No indication for SHARED SERVICES REPRESENTATIVE for now. Await renal recovery. I discussed [...] was completed later after rounds. Dictation software, [employer], was used which may contain error for [...] but not limited to potential need for SHARED SERVICES REPRESENTATIVE . This is a patient with multiple [...] injuries: see wound RN note for treatment. [facility] ed, continue wound care at swing bed, send with extra dressing supplies. *Metabolic bone disorder: elevated PTH and phosphorus. Treatment per secret code expert (see thei r note). Subjective No chest [...] admitted as a transfer from [facility] due t o a mechanical [...] finding placement and he was accepted by [facility] in [place], [place] for rehabilitation purposes. Hospital stay was also complicated by episodes of melena and a drop in H&H due to GI bleeding. He w as given another 2 units of PRBC transfusions which helped and H&H improved to 9.4 range. GI services consulted and Dr. Domenico performed EGD which showed reflux esophagitis, erythematou [...] Medications Current Facilty-Administered PRN Medications Ordered in [facility] Medication Dose Route Frequency Provider Last Rate [...] but remains week, he is accepted at [facility] in [place] with discharge plans tomorrow for rehabilit ation if remains stable. Will continue PT/OT, wound care services and monitor progress. Acute Kidney Injury on Chronic Kidney Disease Stage 3: This was likely due to ATN precipit ated by dehydration & blood loss, Clinically stable and creatinine is down to 3.0 range, [facility] hrology service on board and [...] discharge plans to Sw[facility] Bed [facility] in [facility] tomorrow. DVT prophylaxis with SCD's only due to risks of bleeding. Discharge plans tomorrow to [facility] in [place], [place] for rehabi litation. Called his daughter Ms. Huerta and left a message with updated information at phone number [phone]. Jerry Chino MD 12/30/2019 JacekurgHolden servin PA - 12/30/2019 12:35 PM PDTFormatting of this note might be different from the [facility] Service: Gastroenterology Consult Progress Note Hospital Day: LOS: 9 days SUBJECTIVE Patient Summary: This is an 89-year-old male with multiple medical problems and a his tory of hypertension, diabetes, CKD stage III who was transferred from [facility] t o a fall and [...] motor deficits. PSYCHIATRIC: Appropriate, affect appears normal [facility] Gastroenterology Patient Name: Andres Guzmán [...] physician, the nurse, the anesthesiologist and the automotive refinish technician in the pre-procedure area in the [...] successful. Thermal coagulation with Gold probe 7 Setswana x 5 pulses was successful with hemostasis. [...] 12/29/2019 8:36 AM Number of Addenda: 0 [facility] DATA Lab Results Component Value [...] ll with any questions. Florina Cantu PA-C [facility] Gastroenterology 12/30/2019 Associated attestation - Lamont Hernandez MD - 12/31/2019 2:17 PM [id number] male with GI bleeding due to duodenal ulcer with visible vessel. The ulcer and visible vessel were tr eated with injection and gold probe thermal coagulation. The patient was seen and examined by me personally. The case was discussed with the physician's clinical nursing assistant and I agree with the assessment and p tim as outlined in the note. Continue PPI IV infusion for total of 72 hours and then when patient is discharged he must be on twice daily PPI for 8 weeks. Resume Eliquis in 1 week. Lamont Hernandez MD Gastroenterology staffith, Marycarmen Hubbard, [facility] - 12/30/2019 11:05 AM PDTFormatting [...] MD - 12/30/2019 10:4 5 AM PDT 403/403- LOS: 9 days To summarize previous records: [...] BUNCREARATIO 23 12/30/2019 PTH 72.57 (A) 04/01/2019 [id number] 25.2 (L) 12/27/2019 CALCIUM 8.6 12/30/2019 PHOS [...] 2018. He has been following up with [facility] in [place]. That had improved with nonoliguric state but now seems to have leveled off at around 3 and this may be reflection of unrecovered acute kidney injury and a higher baseline creatinine. At this time there is no clinical uremia, refractory volume overload, refractory acidosis, refractory hyperkalemia and no urgent indication of starting SHARED SERVICES REPRESENTATIVE. Neither is there an indication for diagnostic [...] Incentive spirometry. Transfuse Prn. No indication for SHARED SERVICES REPRESENTATIVE for now. Await renal recovery. I discussed [...] was completed later after rounds. Dictation software, [employer], was used which may contain error for [...] but not limited to potential need for SHARED SERVICES REPRESENTATIVE . This is a patient with multiple [...] BUNCREARATIO 30 12/29/2019 PTH 72.57 (A) 04/01/2019 [id number] 25.2 (L) 12/27/2019 CALCIUM 8.7 12/29/2019 PHOS [...] been following up with [facility] mena in [place]. That seems to be improving with nonoliguric state and small reduction in creatinine. At this time there is no clinical uremia, refractory volume overload, refractory acidosis, refractory hyperkalemia and no urgent indication of starting SHARED SERVICES REPRESENTATIVE. Neither is there an indication for diagnostic [...] Incentive spirometry. Transfuse Prn. No indication for SHARED SERVICES REPRESENTATIVE for now. Await renal recovery. I discussed [...] was completed later after rounds. Dictation software, [employer], was used which may contain error for [...] but not limited to potential need for SHARED SERVICES REPRESENTATIVE . acetaminophen 1,000 mg Oral 3 times [...] dextrose 10% pantoprazole 8 mg/hr (12/29/19 1151) Katharine, Jerry Malik MD - 12/29/2019 8:52 AM PDT Service: Hospitalist Daily Progress Note Andres Guzmán 89 y.o. : 1930 SEX: male PCP: Barbara Gilman MD Hospital Day: LOS: 8 SUBJECTIVE Patient Summary: Patient is an 89-year-old male with past medical history of HTN, DM Type 2, CKD Stage III w ith baseline creatinine 1.7 who was admitted as a transfer from [facility] due t o a mechanical [...] finding placement and he was accepted by [facility] in [place], [place] for rehabilitation purposes. Hospita l stay [...] rehabilitation, he is accepted by [facility] in [place], [place] with discharge plans early next weeks [...] another 1 to 2 to SNF in [place], [place] if remains stable and improve d. Called his daughter Ms. Huerta and updated her about plans at phone number [phone]. Jerry Chino MD 12/29/2019 Norma Sarabia RN [...] BUNCREARATIO 28 12/28/2019 PTH 72.57 (A) 04/01/2019 [id number] 25.2 (L) 12/27/2019 CALCIUM 8.5 12/28/2019 PHOS [...] been following up with [facility] mena in [place]. That seems to be improving with nonoliguric state and small reduction in creatinine. At this time there is no clinical uremia, refractory volume overload, refractory acidosis, refractory hyperkalemia and no urgent indication of starting SHARED SERVICES REPRESENTATIVE. Neither is there an indication for diagnostic [...] Incentive spirometry. Transfuse Prn. No indication for SHARED SERVICES REPRESENTATIVE for now. Await renal recovery. I discussed [...] was completed later after rounds. Dictation software, [employer], was used which may contain error for [...] but not limited to potential need for SHARED SERVICES REPRESENTATIVE . acetaminophen 1,000 mg Oral 3 times [...] DALILA Grant - 12/28/2019 10:49 AM PDT [facility] Service: Orthopedic Surgery Progress Note [...] DALILA Peralta has created this entry using [employer] and [employer] macros. The entry has been reviewed and [...] admitted as a transfer from [facility] due t o a mechanical [...] finding placement and he was accepted by [facility] in [place], [place] for rehabilitation purposes. Hospita l stay [...] progress, he is accepted by [facility] in [place], [place] with discharge plans possib ly early [...] 1 to 2 to a SNF in [place], [place] when renal functions are st able and cleared by Nephrology services. Also called his daughter Ms. Huerta and updated her a bout plans at phone number [phone]. Jerry Chino MD 12/28/2019 Ghazal Ferrer COTA [...] been following up with [facility] mena in [place]. That seems to be improving with nonoliguric state and small reduction in creatinine. At this time there is no clinical uremia, refractory volume overload, refractory acidosis, refractory hyperkalemia and no urgent indication of starting SHARED SERVICES REPRESENTATIVE. Neither is there an indication for diagnostic [...] Incentive spirometry. Transfuse Prn. No indication for SHARED SERVICES REPRESENTATIVE for now. Await renal recovery. I discussed [...] was completed later after rounds. Dictation software, [employer], was used which may contain error for [...] but not limited to potential need for SHARED SERVICES REPRESENTATIVE . acetaminophen 1,000 mg Oral 3 times [...] Net -400 ml . Treatment plan: per secret code expert; slowly improving. *Blood pressure: labile; See VS [...] disorder: elevated PTH and phosphorus. Treatment per secret code expert (see thei r note). Subjective No chest [...] admitted as a transfer from [facility] due t o a mechanical [...] Medications Current Facilty-Administered PRN Medications Ordered in [facility] Medication Dose Route Frequency Provider Last Rate [...] mobility. He is accepted by [facility] in [place], [place] and discharge is delayed due to [...] to 3 days to a SNF in [place], [place] when renal functions a re stable and cleared by Nephrology services. Jerry Chino MD 12/27/2019 Linda Montalvo RN - 12/26/2019 5:09 PM PDT [facility] Service: Wound Care Consult Note [...] admitted as a transfer from [facility] due t o a mechanical [...] placement is recommended. 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 Huerta and the at phone number [phone] Code Status: Full Code Regino Greene MD [...] lab follow-up and treatment per hospitalist and secret code expert. *Blood pressure: hypotensive; See VS for BP trending. 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 Current Weight: 63.5 kg (140 lb) Admit Weight: 63.5 kg (140 lb) Biochemical Data, Medical Test, and Procedures Recent Labs 12/25/19 04212/25/19 042 NA 134* -- K 5.1* -- [...] Dr. Huerta and the at phone number [phone] Code Status: Full Code Regino Greene MD [...] any conversation with family members today. Inpatient customer service sales consultant. Code Status: Full Code Regino [...] Code Regino Greene MD 12/22/2019 10:00 PM onJordin Wv sukhdev Garduno RN - 12/22/2019 5:35 PM PDTEnd of shift chart check completeElectronica lly signed by Miya Wilson, RN at 12/22/2019 5:35 PM PDTKetan Kelley V PT - 12/22/2019 1:14 PM PDTFormatting of this note might be different from the origi nal. 12/22/19 1314 PT Visit Summary PT Visit Type Missed Visit (treatment on hold) Next Visit Information 12/21; PT eval PT Visit Summary Pt's H&H continuing to decrease, now 7.1, 21, will hold until this has res olved ndria Alston RP - 12/22/2019 12:36 PM PDTClinical Pharmacy [...] [place] | | | | | | [address] | | | | | | | | +--------+ + + + + | 02/09/ | Procedure | Cardiology | | | | 2019 | visit | | | | +--------+ + + + + | 03/09/ | Office | Nephrology | Isiah Jade MD | | | 2019 | Visit | | [address] | | | | | | [address] | | | | | | [address] | | | | | | | [...] | | | Dr | | | Sterling | +---+--------+ + +--------+ +---+ + | [...] POC | performed at [facility];[address] | | LABORATORY | | | | [address];[place], [place] | | | | | | [address] | | | | + + + + + + + + | Specimen | + + | | + + + + + + + | Performing | Address | City/State/Zipcode | Phone Number | | Organization | | | | + + + + + | [facility] | [address] | [place] [address] | [phone] | + + + + + POC [...] POC | performed at [facility];[address] | | LABORATORY | | | | [address];[place], [place] | | | | | | [address] | | | | + + + + + + + + | Specimen | + + | | + + + + + + + | Performing | Address | City/State/Zipcode | Phone Number | | Organization | | | | + + + + + | [facility] | [address] [facility] | [place] [address] | [phone] | + + + + + Basic [...] | | performed at [facility];[address] | | | | | | [facility];[place], [place] | | | | | | [address] | | | | + + + + + + + + | Specimen | + + | Blood | + + + + + + + | Performing | Address | City/State/Zipcode | Phone Number | | Organization | | | | + + + + + | [facility] | [address] | [place] [address] | [phone] | + + + + + CBC [...] Absolute | performed at [facility];[address] | K/uL | LABORATORY | | | | [address];[place] | | | | | | [address] | | | | + + + + + + + + | Specimen | + + | Blood | + + + + + + + | Performing | Address | City/State/Zipcode | Phone Number | | Organization | | | | + + + + + | [facility] | [address] | [place] [address] | [phone] | + + + + + POC Glucose (12/31/2019 9:02 PM PDT) + + + + + + | Component | Value | Ref Range | Performed | Pathologist | | | | | At | Signature | + + + + + + | Glucose, | 137 (H)Comment: Testing | 65 - 99 mg/dL | [facility] | | | POC | performed at [facility];[address] | | LABORATORY | | | | [address];[place] | | | | | | [address] | | | | + + + + + + + + | Specimen | + + | | + + + + + + + | Performing | Address | City/State/Zipcode | Phone Number | | Organization | | | | + + + + + | [facility] | [address] | [place] [address] | [phone] | + + + + + POC Glucose (12/31/2019 5:31 PM PDT) + + + + + + | Component | Value | Ref Range | Performed | Pathologist | | | | | At | Signature | + + + + + + | Glucose, | 196 (H)Comment: Testing | 65 - 99 mg/dL | [facility] | | | POC | performed at [facility];[address] | | LABORATORY | | | | [address];[place] | | | | | | [address] | | | | + + + + + + + + | Specimen | + + | | + + + + + + + | Performing | Address | City/State/Zipcode | Phone Number | | Organization | | | | + + + + + | [facility] | [address] | [place] [address] | [phone] | + + + + + POC [...] POC | performed at [facility];[address] | | LABORATORY | | | | [address];[place], [place] | | | | | | [address] | | | | + + + + + + + + | Specimen | + + | | + + + + + + + | Performing | Address | City/State/Zipcode | Phone Number | | Organization | | | | + + + + + | [facility] | [address] | [place] [address] | [phone] | + + + + + POC [...] POC | performed at [facility];[address] | | LABORATORY | | | | [address];[place] | | | | | | [address] | | | | + + + + + + + + | Specimen | + + | | + + + + + + + | Performing | Address | City/State/Zipcode | Phone Number | | Organization | | | | + + + + + | [facility] | [address] | [place] [address] | [phone] | + + + + + Basic [...] W | | | | | | [facility], | | | | | | [place] [address] | | | | + + + + + + + + | Specimen | + + | Blood | + + + + + + + | Performing | Address | City/State/Zipcode | Phone Number | | Organization | | | | + + + + + | [facility] | [address] | [place] [address] | [phone] | + + + + + CBC [...] | | | | | [place] [address] | | | | + + + + + + + + | Specimen | + + | Blood | + + + + + + + | Performing | Address | City/State/Zipcode | Phone Number | | Organization | | | | + + + + + | [facility] | [address] | [place] [address] | [phone] | + + + + + POC Glucose (12/30/2019 8:55 PM PDT) + + + + + + | Component | Value | Ref Range | Performed | Pathologist | | | | | At | Signature | + + + + + + | Glucose, | 192 (H)Comment: Testing | 65 - 99 mg/dL | [facility] | | | POC | performed at [facility];[address] | | LABORATORY | | | | [address];[place], [place] | | | | | | [address] | | | | + + + + + + + + | Specimen | + + | | + + + + + + + | Performing | Address | City/State/Zipcode | Phone Number | | Organization | | | | + + + + + | [facility] | [address] | [place] [address] | [phone] | + + + + + POC Glucose (12/30/2019 4:11 PM PDT) + + + + + + | Component | Value | Ref Range | Performed | Pathologist | | | | | At | Signature | + + + + + + | Glucose, | 130 (H)Comment: Testing | 65 - 99 mg/dL | [facility] | | | POC | performed at [facility];[address] | | LABORATORY | | | | [address];[place] | | | | | | [address] | | | | + + + + + + + + | Specimen | + + | | + + + + + + + | Performing | Address | City/State/Zipcode | Phone Number | | Organization | | | | + + + + + | [facility] | [address] | [place] [address] | [phone] | + + + + + POC [...] POC | performed at [facility];[address] | | LABORATORY | | | | [address];[place], [place] | | | | | | [address] | | | | + + + + + + + + | Specimen | + + | | + + + + + + + | Performing | Address | City/State/Zipcode | Phone Number | | Organization | | | | + + + + + | [facility] | [address] | [place] [address] | [phone] | + + + + + Basic [...] 8.6 | 8.5 - 10.5 | [facility] | | | | | mg/dL | LABORATORY | | + + + + + + | Estimated | 20 (L)Comment: GFR <60: | >60 | [facility] | | | GFR | CHRONIC [...] | | performed at [facility];[address] | | | | | | [facility];[place], [place] | | | | | | [address] | | | | + + + + + + + + | Specimen | + + | Blood | + + + + + + + | Performing | Address | City/State/Zipcode | Phone Number | | Organization | | | | + + + + + | [facility] | [address] | [place] [address] | [phone] | + + + + + POC Glucose (12/30/2019 6:04 AM PDT) + + + + + + | Component | Value | Ref Range | Performed | Pathologist | | | | | At | Signature | + + + + + + | Glucose, | 103 (H)Comment: Testing | 65 - 99 mg/dL | [facility] | | | POC | performed at [facility];[address] | | LABORATORY | | | | [address];[place] | | | | | | [address] | | | | + + + + + + + + | Specimen | + + | | + + + + + + + | Performing | Address | City/State/Zipcode | Phone Number | | Organization | | | | + + + + + | [facility] | [address] | [place] [address] | [phone] | + + + + + CBC [...] Absolute | performed at [facility];[address] | K/uL | LABORATORY | | | | [address];[place], [place] | | | | | | [address] | | | | + + + + + + + + | Specimen | + + | Blood | + + + + + + + | Performing | Address | City/State/Zipcode | Phone Number | | Organization | | | | + + + + + | [facility] | [address] | [place] [address] | [phone] | + + + + + POC Glucose (12/29/2019 11:56 PM PDT) + + + + + + | Component | Value | Ref Range | Performed | Pathologist | | | | | At | Signature | + + + + + + | Glucose, | 109 (H)Comment: Testing | 65 - 99 mg/dL | [facility] | | | POC | performed at [facility];[address] | | LABORATORY | | | | [address];[place] | | | | | | [address] | | | | + + + + + + + + | Specimen | + + | | + + + + + + + | Performing | Address | City/State/Zipcode | Phone Number | | Organization | | | | + + + + + | [facility] | [address] | [place] [address] | [phone] | + + + + + Hemoglobin [...] | | performed at [facility];[address] | | LABORATORY | | | | [address];[place], [place] | | | | | | [address] | | | | + + + + + + + + | Specimen | + + | Blood | + + + + + + + | Performing | Address | City/State/Zipcode | Phone Number | | Organization | | | | + + + + + | [facility] | [address] | [place] [address] | [phone] | + + + + + POC [...] POC | performed at [facility];[address] | | LABORATORY | | | | [address];[place] | | | | | | [address] | | | | + + + + + + + + | Specimen | + + | | + + + + + + + | Performing | Address | City/State/Zipcode | Phone Number | | Organization | | | | + + + + + | [facility] | [address] | [place] [address] | [phone] | + + + + + Hemoglobin [...] | | performed at [facility];8 | | LABORATORY | | | | [address] [facility];[place], [place] | | | | | | [address] | | | | + + + + + + + + | Specimen | + + | Blood | + + + + + + + | Performing | Address | City/State/Zipcode | Phone Number | | Organization | | | | + + + + + | [facility] | [address] | [place] [address] | [phone] | + + + + + POC [...] POC | performed at [facility];[address] | | LABORATORY | | | | [address];[place] | | | | | | [address] | | | | + + + + + + + + | Specimen | + + | | + + + + + + + | Performing | Address | City/State/Zipcode | Phone Number | | Organization | | | | + + + + + | [facility] | [address] | [place] [address] | [phone] | + + + + + POC [...] POC | performed at [facility];[address] | | LABORATORY | | | | [address];[place], [place] | | | | | | [address] | | | | + + + + + + + + | Specimen | + + | | + + + + + + + | Performing | Address | City/State/Zipcode | Phone Number | | Organization | | | | + + + + + | [facility] [facility] | [address] | [place] [address] | [phone] | + + + + + Surgical [...] | | technical component was performed by [facility], [address] [place] [address] | | [place] [address] (Audit Control Clerk: Padmini Sellers MD; CLIA# | | | [id number]). Professional interpretation was performed [facility] | | | [email or web address], | | | [place] [address] (Audit Control Clerk: Oscar Maynard M.D.; CLIA#: | | | [id number]). Diagnostician: Padmini Sellers | | | MDPathologistElectronically [...] | |The technical component was performed by [facility], [address] [place] [address] (Audit Control Clerk: Padmini Sellers MD; CLIA# [id number]). Professional interpretation was performed by | | |[facility], [address] [address] (Audit Control Clerk: Oscar Maynard M.D.; CLIA#: [id number]). | | | | | |Diagnostician: Padmini [...] Performed At | + + + | [facility] | [facility] | | [facility] | [facility] | | CenterGastroenterology | | | Patient Name: Andres Guzmán | | | Procedure Date: 12/29/2019 8:36 AMMRN: [id number] | | | of : 1930 | [...] the anesthesiologist and the | | | automotive refinish technician in the pre-procedure area in the [...] | | | with Gold probe 7 Setswana x 5 pulses was successful with | [...] | | | AMNumber of Addenda: 0 [facility] | | | - Check hemoglobin q 6 hours for one day. | | | | | | | | |LAMONT HERNANDEZ MD | | |12/29/2019 10:19:54 AM | | |This report has been signed electronically. | | | | | |Note Initiated On: 12/29/2019 8:36 AM | | |Number of Addenda: 0 | | | | | | [facility] | | + + + [...] | 39.0 - 50.0 % | [facility] | | | | performed at [facility];[address] | | LABORATORY | | | | [address];[place], [place] | | | | | | [address] | | | | + + + + + + + + | Specimen | + + | Blood | + + + + + + + | Performing | Address | City/State/Zipcode | Phone Number | | Organization | | | | + + + + + | [facility] | [address] | [place] [address] | [phone] | + + + + + POC [...] POC | performed at [facility];[address] | | LABORATORY | | | | [address];[place] | | | | | | [address] | | | | + + + + + + + + | Specimen | + + | | + + + + + + + | Performing | Address | City/State/Zipcode | Phone Number | | Organization | | | | + + + + + | [facility] | [address] | [place] [address] | [phone] | + + + + + Protime INR (12/29/2019 3:53 AM PDT) + + + + + + | Component | Value | Ref Range | Performed | Pathologist | | | | | At | Signature | + + + + + + | INR | 1.3Comment: REFERENCE | | [facility] | | | | RANGE:0.9 - [...] | | performed at [facility];[address] | | | | | | [address];[place] | | | | | | [address] | | | | + + + + + + + + | Specimen | + + | Blood | + + + + + + + | Performing | Address | City/State/Zipcode | Phone Number | | Organization | | | | + + + + + | [facility] | [address] | [place] [address] | [phone] | + + + + + Basic [...] | | performed at [facility];[address] | | | | | | [facility];[place], [place] | | | | | | [address] | | | | + + + + + + + + | Specimen | + + | Blood | + + + + + + + | Performing | Address | City/State/Zipcode | Phone Number | | Organization | | | | + + + + + | [facility] | [address] | [place] [address] | [phone] | + + + + + CBC [...] Absolute | performed at [facility];[address] | K/uL | LABORATORY | | | | [address];[place], [place] | | | | | | [address] | | | | + + + + + + + + | Specimen | + + | Blood | + + + + + + + | Performing | Address | City/State/Zipcode | Phone Number | | Organization | | | | + + + + + | [facility] | [address] | [place] [address] | [phone] | + + + + + POC [...] POC | performed at [facility];[address] | | LABORATORY | | | | [address];[place] | | | | | | [address] | | | | + + + + + + + + | Specimen | + + | | + + + + + + + | Performing | Address | City/State/Zipcode | Phone Number | | Organization | | | | + + + + + | [facility] | [address] | [place] [address] | [phone] | + + + + + Hemoglobin [...] | | performed at [facility];[address] | | LABORATORY | | | | [address];[place] | | | | | | [address] | | | | + + + + + + + + | Specimen | + + | Blood | + + + + + + + | Performing | Address | City/State/Zipcode | Phone Number | | Organization | | | | + + + + + | [facility] | [address] | [place] [address] | [phone] | + + + + + POC Glucose (12/28/2019 8:47 PM PDT) + + + + + + | Component | Value | Ref Range | Performed | Pathologist | | | | | At | Signature | + + + + + + | Glucose, | 216 (H)Comment: Testing | 65 - 99 mg/dL | [facility] | | | POC | performed at [facility];[address] | | LABORATORY | | | | [address];[place] | | | | | | [address] | | | | + + + + + + + + | Specimen | + + | | + + + + + + + | Performing | Address | City/State/Zipcode | Phone Number | | Organization | | | | + + + + + | [facility] | [address] | [place] [address] | [phone] | + + + + + Fecal [...] | | | | [facility];[address];[place] [address] | | | | + + + + + + + + | Specimen | + + | Stool - Stool | | specimen (specimen) | + + + + + + + | Performing | Address | City/State/Zipcode | Phone Number | | Organization | | | | + + + + + | [facility] | [address] | [place] [address] | [phone] | + + + + + POC [...] POC | performed at [facility];[address] | | LABORATORY | | | | [address];[place] | | | | | | [address] | | | | + + + + + + + + | Specimen | + + | | + + + + + + + | Performing | Address | City/State/Zipcode | Phone Number | | Organization | | | | + + + + + | [facility] | [address] | [place] [address] | [phone] | + + + + + Hemoglobin [...] | | performed at [facility];[address] | | LABORATORY | | | | [address];[place] | | | | | | [address] | | | | + + + + + + + + | Specimen | + + | Blood | + + + + + + + | Performing | Address | City/State/Zipcode | Phone Number | | Organization | | | | + + + + + | [facility] | [address] | [place] [address] | [phone] | + + + + + POC [...] POC | performed at [facility];[address] | | LABORATORY | | | | [address];[place], [place] | | | | | | [address] | | | | + + + + + + + + | Specimen | + + | | + + + + + + + | Performing | Address | City/State/Zipcode | Phone Number | | Organization | | | | + + + + + | [facility] | [address] | [place] [address] | [phone] | + + + + + POC [...] POC | performed at [facility];[address] | | LABORATORY | | | | [address];[place] | | | | | | [address] | | | | + + + + + + + + | Specimen | + + | | + + + + + + + | Performing | Address | City/State/Zipcode | Phone Number | | Organization | | | | + + + + + | [facility] | [address] | [place] [address] | [phone] | + + + + + Basic [...] W | | | | | | [facility], | | | | | | [place] [address] | | | | + + + + + + + + | Specimen | + + | Blood | + + + + + + + | Performing | Address | City/State/Zipcode | Phone Number | | Organization | | | | + + + + + | [facility] | [address] | [place] [address] | [phone] | + + + + + CBC [...] [place], | | | | | | [place] [address] | | | | + + + + + + + + | Specimen | + + | Blood | + + + + + + + | Performing | Address | City/State/Zipcode | Phone Number | | Organization | | | | + + + + + | [facility] | [address] | [place] [address] | [phone] | + + + + + POC [...] POC | performed at [facility];[address] | | LABORATORY | | | | [address];[place] | | | | | | [address] | | | | + + + + + + + + | Specimen | + + | | + + + + + + + | Performing | Address | City/State/Zipcode | Phone Number | | Organization | | | | + + + + + | [facility] | [address] | [place] [address] | [phone] | + + + + + POC Glucose (12/27/2019 3:30 PM PDT) + + + + + + | Component | Value | Ref Range | Performed | Pathologist | | | | | At | Signature | + + + + + + | Glucose, | 156 (H)Comment: Testing | 65 - 99 mg/dL | [facility] | | | POC | performed at [facility];[address] | | LABORATORY | | | | [address];[place] | | | | | | [address] | | | | + + + + + + + + | Specimen | + + | | + + + + + + + | Performing | Address | City/State/Zipcode | Phone Number | | Organization | | | | + + + + + | [facility] | [address] | [place] [address] | [phone] | + + + + + Red [...] BANK | Testing performed at | | [facility] | | | COMMENT | [facility];[address] | | LABORATORY | | | | [address] [address] | | | | + + + + + + + + | Specimen | + + | | + + + + + + + | Performing | Address | City/State/Zipcode | Phone Number | | Organization | | | | + + + + + | [facility] | [address] | [place] [address] | [phone] | + + + + + Type [...] + + + | BB BAND | [id number] | | [facility] | | | | | | LABORATORY | | + + + + + + | UNIT # | [id number] | | [facility] | | | | [...] + + + | UNIT # | [id number] | | [facility] | | | | [...] RESULT | performed at [facility];[address] | | LABORATORY | | | | [address];[place] | | | | | | [address] | | | | + + + + + + + + | Specimen | + + | Blood | + + + + + + + | Performing | Address | City/State/Zipcode | Phone Number | | Organization | | | | + + + + + | [facility] | [address] | [place] [address] | [phone] | + + + + + POC [...] POC | performed at [facility];[address] | | LABORATORY | | | | [address];[place] | | | | | | [address] | | | | + + + + + + + + | Specimen | + + | | + + + + + + + | Performing | Address | City/State/Zipcode | Phone Number | | Organization | | | | + + + + + | [facility] | [address] | [place] [address] | [phone] | + + + + + CBC [...] | | | | | [place] [address] | | | | + + + + + + + + | Specimen | + + | | + + + + + + + | Performing | Address | City/State/Zipcode | Phone Number | | Organization | | | | + + + + + | [facility] | [address] | [place] [address] | [phone] | + + + + + Procalcitonin (12/27/2019 5:04 AM PDT) + + + + + + | Component | Value | Ref Range | Performed | Pathologist | | | | | At | Signature | + + + + + + | PROCALCITON | 0.41Comment: | <0.5 ng/mL | [facility] | | | IN | INTERPRETIVE [...] | | | at [facility];[address] [place] [address] | | | | | | [facility];[place] [address] | | | | + + + + + + + + | Specimen | + + | Blood | + + + + + + + | Performing | Address | City/State/Zipcode | Phone Number | | Organization | | | | + + + + + | [facility] | [address] | [place] [address] | [phone] | + + + + + Basic [...] (L)Comment: GFR <60: | >60 | [facility] | | | GFR | CHRONIC [...] W | | | | | | [facility], | | | | | | [place] [address] | | | | + + + + + + + + | Specimen | + + | Blood | + + + + + + + | Performing | Address | City/State/Zipcode | Phone Number | | Organization | | | | + + + + + | [facility] | [address] | [place] [address] | [phone] | + + + + + Vitamin D, Deficiency Screen (25-Hydroxy) (12/27/2019 5:04 AM PDT) + + + + + + | Component | Value | Ref Range | Performed | Pathologist | | | | | At | Signature | + + + + + + | Vit D, | 25.2 (L)Comment: Vitamin | 30.0 - 100.0 | [facility] | | | 25-Hydroxy | D deficiency has been | ng/mL | LABORATORY | | | | defined by the [place] | | | | | | ofMedicine [...] IOM | | | | | | ([place] of [place]). | | | | | [...] | | | | | performed at [facility], | | | | | | [address], | | | | | | [facility] [address] | | | | + + + + + + + + | Specimen | + + | Blood | + + + + + + + | Performing | Address | City/State/Zipcode | Phone Number | | Organization | | | | + + + + + | [facility] | [address] | [place] [address] | [phone] | + + + + + Potassium (12/27/2019 12:08 AM PDT) + + + + + + | Component | Value | Ref Range | Performed | Pathologist | | | | | At | Signature | + + + + + + | K | 4.0Comment: Testing | 3.5 - 4.9 | [facility] | | | | performed at [facility];[address] | mmol/L | LABORATORY | | | | [address];[place], [place] | | | | | | [address] | | | | + + + + + + + + | Specimen | + + | Blood | + + + + + + + | Performing | Address | City/State/Zipcode | Phone Number | | Organization | | | | + + + + + | [facility] | [address] | [place] [address] | [phone] | + + + + + Magnesium [...] | | performed at [facility];8 | | LABORATORY | | | | [address];[place] | | | | | | [address] | | | | + + + + + + + + | Specimen | + + | Blood | + + + + + + + | Performing | Address | City/State/Zipcode | Phone Number | | Organization | | | | + + + + + | [facility] | [address] | [place] [address] | [phone] | + + + + + ECG [...] POC | performed at [facility];[address] | | LABORATORY | | | | [address];[place] | | | | | | [address] | | | | + + + + + + + + | Specimen | + + | | + + + + + + + | Performing | Address | City/State/Zipcode | Phone Number | | Organization | | | | + + + + + | [facility] | [address] | [place] [address] | [phone] | + + + + + POC Glucose (12/26/2019 5:02 PM PDT) + + + + + + | Component | Value | Ref Range | Performed | Pathologist | | | | | At | Signature | + + + + + + | Glucose, | 154 (H)Comment: Testing | 65 - 99 mg/dL | [facility] | | | POC | performed at [facility];[address] | | LABORATORY | | | | [address];[place] | | | | | | [address] | | | | + + + + + + + + | Specimen | + + | | + + + + + + + | Performing | Address | City/State/Zipcode | Phone Number | | Organization | | | | + + + + + | [facility] | [address] | [place] [address] | [phone] | + + + + + Complement [...] | | | COMPLEMENT | performed at [facility], | | LABORATORY | | | | [address], | | | | | | [facility] [address] | | | | + + + + + + + + | Specimen | + + | | + + + + + + + | Performing | Address | City/State/Zipcode | Phone Number | | Organization | | | | + + + + + | [facility] | [address] | [place] [address] | [phone] | + + + + + Complement C3 Ag (12/26/2019 12:33 PM PDT) + + + + + + | Component | Value | Ref Range | Performed | Pathologist | | | | | At | Signature | + + + + + + | C3 | 53 (L)Comment: Testing | 82 - 167 mg/dL | [facility] | | | COMPLEMENT | performed at [facility], | | LABORATORY | | | | [address], | | | | | | [facility] [address] | | | | + + + + + + + + | Specimen | + + | | + + + + + + + | Performing | Address | City/State/Zipcode | Phone Number | | Organization | | | | + + + + + | [facility] | [address] | [place] [address] | [phone] | + + + + + POC [...] POC | performed at [facility];[address] | | LABORATORY | | | | [address];[place] | | | | | | [address] | | | | + + + + + + + + | Specimen | + + | | + + + + + + + | Performing | Address | City/State/Zipcode | Phone Number | | Organization | | | | + + + + + | [facility] | [address] | [place] [address] | [phone] | + + + + + POC Glucose (12/26/2019 7:38 AM PDT) + + + + + + | Component | Value | Ref Range | Performed | Pathologist | | | | | At | Signature | + + + + + + | Glucose, | 138 (H)Comment: Testing | 65 - 99 mg/dL | [facility] | | | POC | performed at [facility];[address] | | LABORATORY | | | | [address];[place], [place] | | | | | | [address] | | | | + + + + + + + + | Specimen | + + | | + + + + + + + | Performing | Address | City/State/Zipcode | Phone Number | | Organization | | | | + + + + + | [facility] | [address] | [place] [address] | [phone] | + + + + + Parathyroid Hormone, Intraoperative (12/26/2019 4:25 AM PDT) + + + + + + | Component | Value | Ref Range | Performed | Pathologist | | | | | At | Signature | + + + + + + | PTH Intact | 167.0 (H)Comment: | 8.7 - 79.6 | [facility] | | | | Testing performed at | pg/mL | LABORATORY | | | | [facility];[address] | | | | | | [address];[place] [address] | | | | + + + + + + + + | Specimen | + + | | + + + + + + + | Performing | Address | City/State/Zipcode | Phone Number | | Organization | | | | + + + + + | [facility] | [address] | [place] [address] | [phone] | + + + + + Renal [...] W | | | | | | [facility], | | | | | | [place] [address] | | | | + + + + + + + + | Specimen | + + | Blood | + + + + + + + | Performing | Address | City/State/Zipcode | Phone Number | | Organization | | | | + + + + + | [facility] | [address] | [place] [address] | [phone] | + + + + + POC [...] POC | performed at [facility];[address] | | LABORATORY | | | | [address];[place] | | | | | | [address] | | | | + + + + + + + + | Specimen | + + | | + + + + + + + | Performing | Address | City/State/Zipcode | Phone Number | | Organization | | | | + + + + + | [facility] | [address] | [place] [address] | [phone] | + + + + + POC Glucose (12/25/2019 5:13 PM PDT) + + + + + + | Component | Value | Ref Range | Performed | Pathologist | | | | | At | Signature | + + + + + + | Glucose, | 133 (H)Comment: Testing | 65 - 99 mg/dL | [facility] | | | POC | performed at [facility];[address] | | LABORATORY | | | | [address];[place] | | | | | | [address] | | | | + + + + + + + + | Specimen | + + | | + + + + + + + | Performing | Address | City/State/Zipcode | Phone Number | | Organization | | | | + + + + + | [facility] | [address] | [place] [address] | [phone] | + + + + + ECHO [...] POC | performed at [facility];[address] | | LABORATORY | | | | [address];[place] | | | | | | [address] | | | | + + + + + + + + | Specimen | + + | | + + + + + + + | Performing | Address | City/State/Zipcode | Phone Number | | Organization | | | | + + + + + | [facility] | [address] | [place] [address] | [phone] | + + + + + POC Glucose (12/25/2019 7:56 AM PDT) + + + + + + | Component | Value | Ref Range | Performed | Pathologist | | | | | At | Signature | + + + + + + | Glucose, | 136 (H)Comment: Testing | 65 - 99 mg/dL | [facility] | | | POC | performed at [facility];[address] | | LABORATORY | | | | [address];[place], [place] | | | | | | [address] | | | | + + + + + + + + | Specimen | + + | | + + + + + + + | Performing | Address | City/State/Zipcode | Phone Number | | Organization | | | | + + + + + | [facility] | [address] | [place] [address] | [phone] | + + + + + CK [...] | | performed at [facility];[address] | | LABORATORY | | | | [address];[place] | | | | | | [address] | | | | + + + + + + + + | Specimen | + + | Blood | + + + + + + + | Performing | Address | City/State/Zipcode | Phone Number | | Organization | | | | + + + + + | [facility] | [address] | [place] [address] | [phone] | + + + + + Renal [...] (H) | 2.3 - 4.8 mg/dL | [facility] | | | | | | LABORATORY | | + + + + + + | Estimated | 13 (L)Comment: GFR <60: | >60 | [facility] | | | GFR | CHRONIC [...] W | | | | | | [facility], | | | | | | [place] [address] | | | | + + + + + + + + | Specimen | + + | Blood | + + + + + + + | Performing | Address | City/State/Zipcode | Phone Number | | Organization | | | | + + + + + | [facility] | [address] | [place] [address] | [phone] | + + + + + Cytoplasmic [...] | | | | | [facility], | | | | | | [address], | | | | | | [facility] [address] | | | | + + + + + + + + | Specimen | + + | Blood | + + + + + + + | Performing | Address | City/State/Zipcode | Phone Number | | Organization | | | | + + + + + | [facility] | [address] | [place] [address] | [phone] | + + + + + Sedimentation Rate (12/25/2019 4:22 AM PDT) + + + + + + | Component | Value | Ref Range | Performed | Pathologist | | | | | At | Signature | + + + + + + | ESR | 6Comment: Testing | 0 - 20 mm/Hr | [facility] | | | | performed at [facility], [address] | | LABORATORY | | | | [address], | | | | | | [place] [address] | | | | + + + + + + + + | Specimen | + + | Blood | + + + + + + + | Performing | Address | City/State/Zipcode | Phone Number | | Organization | | | | + + + + + | [facility] | [address] | [place] [address] | [phone] | + + + + + Immunoglobulin, Free Light Chain (12/25/2019 4:22 AM PDT) + + + + + + | Component | Value | Ref Range | Performed | Pathologist | | | | | At | Signature | + + + + + + | [place] Free | 121.2 (H) | 3.3 - 19.4 mg/L | [facility] | | | Light | | | [...] + + + + + + | [place] | 1.25Comment: Testing | 0.26 - 1.65 | [facility] | | | a Free | performed at [facility] | | LABORATORY | | | Light Chain | [place], [address] | | | | | Ratio | [place] [address] | | | | + + + + + + + + | Specimen | + + | Blood | + + + + + + + | Performing | Address | City/State/Zipcode | Phone Number | | Organization | | | | + + + + + | [facility] | [address] | [place] [address] | [phone] | + + + + + Glomerular [...] by | | | | | | [facility], [address] [place] [address] | | | | | | [place] | | | | | | [address] | | | | + + + + + + + + | Specimen | + + | Blood | + + + + + + + | Performing | Address | City/State/Zipcode | Phone Number | | Organization | | | | + + + + + | [facility] | [address] | [place] [address] | [phone] | + + + + + Hepatitis [...] Amplificationtest | | | | | | ([id number]).Testing | | | | | | performed at [facility], | | | | | | [address], [facility] [address], | | | | | | [facility] [address] | | | | + + + + + + + + | Specimen | + + | Blood | + + + + + + + | Performing | Address | City/State/Zipcode | Phone Number | | Organization | | | | + + + + + | [facility] | [address] | [place] [address] | [phone] | + + + + + CK Total (12/25/2019 4:22 AM PDT) + + + + + + | Component | Value | Ref Range | Performed | Pathologist | | | | | At | Signature | + + + + + + | CK TOTAL | 100Comment: Testing | 55 - 400 U/L | [facility] | | | | performed at [facility] | LAB[facility]ATORY | | [address];[place], [place] | | | | | | [address] | | | | + + + + + + + + | Specimen | + + | Blood | + + + + + + + | Performing | Address | City/State/Zipcode | Phone Number | | Organization | | | | + + + + + | [facility] | [address] | [place] [address] | [phone] | + + + + + Lactate Dehydrogenase (12/25/2019 4:22 AM PDT) + + + + + + | Component | Value | Ref Range | Performed | Pathologist | | | | | At | Signature | + + + + + + | LDH TOTAL | 154Comment: Testing | 120 - 246 U/L | [facility] | | | | performed at [facility] | | LABORATORY | | | | [place] [address]ccain;[place], [place] | | | | | | [address] | | | | + + + + + + + + | Specimen | + + | Blood | + + + + + + + | Performing | Address | City/State/Zipcode | Phone Number | | Organization | | | | + + + + + | [facility] | [address] [facility] [facility] | [place] [address] | [phone] | + + + + + Magnesium (12/25/2019 4:22 AM PDT) + + + + + + | Component | Value | Ref Range | Performed | Pathologist | | | | | At | Signature | + + + + + + | Magnesium | 2.5 (H)Comment: Testing | 1.7 - 2.4 mg/dL | [facility] | | | | performed at [facility], [address] | | LABORATORY | | | | [address], | | | | | | [place] [address] | | | | + + + + + + + + | Specimen | + + | Blood | + + + + + + + | Performing | Address | City/State/Zipcode | Phone Number | | Organization | | | | + + + + + | [facility] | [address] | [place] [address] | [phone] | + + + + + Protein, Urine, Random (12/25/2019 12:01 AM PDT) + + + + + + | Component | Value | Ref Range | Performed | Pathologist | | | | | At | Signature | + + + + + + | Protein, | 131Comment: NO NORMAL | mg/dL | [facility] | | | Urine | [facility]LISHED[facility] | | LABORATORY | | | | performed at [facility], [address] | | | | | [address], | | | | | | [place] [address] | | | | + + + + + + + + | Specimen | + + | | + + + + + + + | Performing | Address | City/State/Zipcode | Phone Number | | Organization | | | | + + + + + | [facility] | [address] | [place] [address] | [phone] | + + + + + Creatinine, Urine, Random (12/25/2019 12:01 AM PDT) + + + + + + | Component | Value | Ref Range | Performed | Pathologist | | | | | At | Signature | + + + + + + | Creatinine, | 139.0Comment: NO NORMAL | mg/dL | [facility] | | | random | [facility]ABLISHED[facility] | | LABORATORY | | | urine | performed at [facility], [address] | | | | | | [address], | | | | | | [place] [address] | | | | + + + + + + + + | Specimen | + + | | + + + + + + + | Performing | Address | City/State/Zipcode | Phone Number | | Organization | | | | + + + + + | [facility] | [address] | [place] [address] | [phone] | + + + + + Protein/Creatinine [...] [address], | | | | | | [place] [address] | | | | + + + + + + + + | Specimen | + + | Urine | + + + + + + + | Performing | Address | City/State/Zipcode | Phone Number | | Organization | | | | + + + + + | [facility] | [address] | [place] [address] | [phone] | + + + + + POC [...] POC | performed at [facility];[address] | | LABORATORY | | | | [address];[place] | | | | | | [address] | | | | + + + + + + + + | Specimen | + + | | + + + + + + + | Performing | Address | City/State/Zipcode | Phone Number | | Organization | | | | + + + + + | [facility] | [address] | [place] [address] | [phone] | + + + + + POC Glucose (12/24/2019 5:14 PM PDT) + + + + + + | Component | Value | Ref Range | Performed | Pathologist | | | | | At | Signature | + + + + + + | Glucose, | 136 (H)Comment: Testing | 65 - 99 mg/dL | [facility] | | | POC | performed at [facility];[address] | | LABORATORY | | | | [address];[place] | | | | | | [address] | | | | + + + + + + + + | Specimen | + + | | + + + + + + + | Performing | Address | City/State/Zipcode | Phone Number | | Organization | | | | + + + + + | [facility] | [address] | [place] [address] | [phone] | + + + + + ECG [...] Arterial, | performed at [facility];[address] | | LABORATORY | | | POC | [address];[place] | | | | | | [address] | | | | + + + + + + + + | Specimen | + + | | + + + + + + + | Performing | Address | City/State/Zipcode | Phone Number | | Organization | | | | + + + + + | [facility] | [address] | [place] [address] | [phone] | + + + + + Coronavirus (COVID-19) NAAT (12/24/2019 1:10 PM PDT) + + + + + + | Component | Value | Ref Range | Performed | Pathologist | | | | | At | Signature | + + + + + + | SARS-CoV-2, | NEGATIVEComment: Testing | NEG | [facility] | | | YOU | performed at [facility];[address] | | LABORATORY | | | (COVID-19) | [address];[place], [place] | | | | | | [address] | | | | + + + + + + + + | Specimen | + + | Tissue - Entire | | nasopharynx (body | | structure) | + + + + + + + | Performing | Address | City/State/Zipcode | Phone Number | | Organization | | | | + + + + + | [facility] | [address] | [place] [address] | [phone] | + + + + + Culture, [...] | | LABORATORY | | | | Blvd;[place] [address] | | | | + + + + + + | RESULT | NO GROWTH 6 DAYS | | [facility] | | | | | | LABORATORY | | + + + + + + | RESULT | Testing performed at | | [facility] | | | | TCL, [address] [facility] [address] | | LABORATORY | | | | [address], [place], [place] | | | | | | [address]Eqiqngt: Testing | | | | | | performed at [facility], [address] | | | | | | [address] [facility], [place], [place] | | | | | | [address] | | | | + + + [...] [facility] | [address] | [place] [address] | [phone] | + + + + + Culture, [...] | | LABORATORY | | | | Blvd;[place] [address] | | | | + + + + + + | RESULT | NO GROWTH 6 DAYS | | [facility] | | | | | | LABORATORY | | + + + + + + | RESULT | Testing performed at | | [facility] | | | | TCL, [address] [facility] [facility] [address] | | LABORATORY | | | | [place] | | | | | | [address]Imlgqow: Testing | | | | | | performed at [facility], [address] | | | | | | [facility] [place] | | | | | | [address] | | | | + + + + + + + + | Specimen | + + | Blood - Peripheral | | blood specimen | | (specimen) | + + + + + + + | Performing | Address | City/State/Zipcode | Phone Number | | Organization | | | | + + + + + | [facility] | [address] | [place] [address] | [phone] | + + + + + Urinalysis [...] - 1.030 | [facility] | | | [place], | | | LABORATORY | | | [...] | LABORATORY | | | | [address] Mccani, | | | | | | [place] [address] | | | | + + + [...] + + + + + | [facility] | [address] | [place] [address] | [phone] | + + + + + Sodium, Urine, Random (12/24/2019 12:45 PM PDT) + + + + + + | Component | Value | Ref Range | Performed | Pathologist | | | | | At | Signature | + + + + + + | Sodium, | 52Comment: NO NORMAL | mmol/L | [facility] | | | Random | [facility]LISHEDTesting | | LABORATORY | | | urine | performed at [facility], [address] | | | | | | [address], | | | | | | [place] [address] | | | | + + + [...] + + + + + | [facility] | [address] | [place] [address] | [phone] | + + + + + Creatinine, [...] | urine | performed at [facility], [address] | | | | | | [address], | | | | | | [place] [address] | | | | + + + [...] + + + + + | [facility] | [address] | [place] [address] | [phone] | + + + + + Lactic [...] Serum | performed at [facility];[address] | mmol/L | LABORATORY | | | | [address];[place] | | | | | | [address] | | | | + + + + + + + + | Specimen | + + | Blood | + + + + + + + | Performing | Address | City/State/Zipcode | Phone Number | | Organization | | | | + + + + + | [facility] | [address] | [place] [address] | [phone] | + + + + + Procalcitonin [...] | | | at [facility];[address] | | | | | | [address];[place] [address] | | | | + + + + + + + + | Specimen | + + | Blood | + + + + + + + | Performing | Address | City/State/Zipcode | Phone Number | | Organization | | | | + + + + + | [facility] | [address] | [place] [address] | [phone] | + + + + + POC [...] POC | performed at [facility];[address] | | LABORATORY | | | | [address];[place], [place] | | | | | | [address] | | | | + + + + + + + + | Specimen | + + | | + + + + + + + | Performing | Address | City/State/Zipcode | Phone Number | | Organization | | | | + + + + + | [facility] | [address] | [place] [address] | [phone] | + + + + + POC [...] POC | performed at [facility];[address] | | LABORATORY | | | | [address];[place] | | | | | | [address] | | | | + + + + + + + + | Specimen | + + | | + + + + + + + | Performing | Address | City/State/Zipcode | Phone Number | | Organization | | | | + + + + + | [facility] | [address] | [place] [address] | [phone] | + + + + + CBC [...] | | performed at [facility];[address] | | | | | | [address];[place] | | | | | | [address] | | | | + + + + + + + + | Specimen | + + | Blood | + + + + + + + | Performing | Address | City/State/Zipcode | Phone Number | | Organization | | | | + + + + + | [facility] | [address] | [place] [address] | [phone] | + + + + + Basic [...] yee, | | | | | | [place] [address] | | | | + + + + + + + + | Specimen | + + | Blood | + + + + + + + | Performing | Address | City/State/Zipcode | Phone Number | | Organization | | | | + + + + + | [facility] | [address] [address] | [place] [address] | [phone] | + + + + + POC [...] POC | performed at [facility];[address] | | LABORATORY | | | | [address];[place], [place] | | | | | | [address] | | | | + + + + + + + + | Specimen | + + | | + + + + + + + | Performing | Address | City/State/Zipcode | Phone Number | | Organization | | | | + + + + + | [facility] | [address] | [place] [address] | [phone] | + + + + + POC [...] POC | performed at [facility];[address] | | LABORATORY | | | | [address];[place] | | | | | | [address] | | | | + + + + + + + + | Specimen | + + | | + + + + + + + | Performing | Address | City/State/Zipcode | Phone Number | | Organization | | | | + + + + + | [facility] | [address] | [place] [address] | [phone] | + + + + + POC Glucose (12/23/2019 2:05 PM PDT) + + + + + + | Component | Value | Ref Range | Performed | Pathologist | | | | | At | Signature | + + + + + + | Glucose, | 158 (H)Comment: Testing | 65 - 99 mg/dL | [facility] | | | POC | performed at [facility];[address] | | LABORATORY | | | | [address];[place], [place] | | | | | | [address] | | | | + + + + + + + + | Specimen | + + | | + + + + + + + | Performing | Address | City/State/Zipcode | Phone Number | | Organization | | | | + + + + + | [facility] | [address] | [place] [address] | [phone] | + + + + + POC [...] POC | performed at [facility];[address] | | LABORATORY | | | | [address];[place], [place] | | | | | | [address] | | | | + + + + + + + + | Specimen | + + | | + + + + + + + | Performing | Address | City/State/Zipcode | Phone Number | | Organization | | | | + + + + + | [facility] | [address] | [place] [address] | [phone] | + + + + + Basic [...] (L)Comment: GFR <60: | >60 | [facility] | | | GFR | CHRONIC [...] | | performed at [facility] | | | | | | [facility];[place], [place] | | | | | | [address] | | | | + + + + + + + + | Specimen | + + | Blood | + + + + + + + | Performing | Address | City/State/Zipcode | Phone Number | | Organization | | | | + + + + + | [facility] | [address] | [place] [address] | [phone] | + + + + + Phosphorus (12/23/2019 4:04 AM PDT) + + + + + + | Component | Value | Ref Range | Performed | Pathologist | | | | | At | Signature | + + + + + + | Phosphorus | 4.6Comment: Testing | 2.3 - 4.8 mg/dL | [facility] | | | | performed at [facility];[address] | | LABORATORY | | | | [address];[place] | | | | | | [address] | | | | + + + + + + + + | Specimen | + + | Blood | + + + + + + + | Performing | Address | City/State/Zipcode | Phone Number | | Organization | | | | + + + + + | [facility] | [address] | [place] [address] | [phone] | + + + + + Magnesium [...] | | performed at [facility];[address] | | LABORATORY | | | | [address];[place] | | | | | | [address] | | | | + + + + + + + + | Specimen | + + | Blood | + + + + + + + | Performing | Address | City/State/Zipcode | Phone Number | | Organization | | | | + + + + + | [facility] | [address] | [place] [address] | [phone] | + + + + + CBC [...] | | performed at [facility];[address] | | | | | | [address];[place] | | | | | | [address] | | | | + + + + + + + + | Specimen | + + | Blood | + + + + + + + | Performing | Address | City/State/Zipcode | Phone Number | | Organization | | | | + + + + + | [facility] | [address] | [place] [address] | [phone] | + + + + + Hemoglobin [...] | | performed at [facility];[address] | g/dL | LABORATORY | | | | [address];[place], [place] | | | | | | [address] | | | | + + + + + + + + | Specimen | + + | Blood | + + + + + + + | Performing | Address | City/State/Zipcode | Phone Number | | Organization | | | | + + + + + | [facility] | [address] | [place] [address] | [phone] | + + + + + Hematocrit [...] | | performed at [facility];[address] | | LABORATORY | | | | [address];[place], [place] | | | | | | [address] | | | | + + + + + + + + | Specimen | + + | Blood | + + + + + + + | Performing | Address | City/State/Zipcode | Phone Number | | Organization | | | | + + + + + | [facility] | [address] | [place] [address] | [phone] | + + + + + POC [...] POC | performed at [facility];[address] | | LABORATORY | | | | [address];[place] | | | | | | [address] | | | | + + + + + + + + | Specimen | + + | | + + + + + + + | Performing | Address | City/State/Zipcode | Phone Number | | Organization | | | | + + + + + | [facility] | [address] | [place] [address] | [phone] | + + + + + POC Glucose (12/22/2019 5:32 PM PDT) + + + + + + | Component | Value | Ref Range | Performed | Pathologist | | | | | At | Signature | + + + + + + | Glucose, | 153 (H)Comment: Testing | 65 - 99 mg/dL | [facility] | | | POC | performed at [facility];[address] | | LABORATORY | | | | [address];[place] | | | | | | [address] | | | | + + + + + + + + | Specimen | + + | | + + + + + + + | Performing | Address | City/State/Zipcode | Phone Number | | Organization | | | | + + + + + | [facility] | [address] | [place] [address] | [phone] | + + + + + Red [...] BANK | Testing performed at | | [facility] | | | COMMENT | [facility];[address] | | LABORATORY | | | | [address];[place] [address] | | | | + + + + + + + + | Specimen | + + | | + + + + + + + | Performing | Address | City/State/Zipcode | Phone Number | | Organization | | | | + + + + + | [facility] | [address] | [place] [address] | [phone] | + + + + + POC [...] POC | performed at [facility];[address] | | LABORATORY | | | | [address];[place] | | | | | | [address] | | | | + + + + + + + + | Specimen | + + | | + + + + + + + | Performing | Address | City/State/Zipcode | Phone Number | | Organization | | | | + + + + + | [facility] | [address] | [place] [address] | [phone] | + + + + + FL [...] POC | performed at [facility];[address] | g/dL | LABORATORY | | | | [address];[place], [place] | | | | | | [address] | | | | + + + + + + + + | Specimen | + + | | + + + + + + + | Performing | Address | City/State/Zipcode | Phone Number | | Organization | | | | + + + + + | [facility] | [address] | [place] [address] | [phone] | + + + + + POC ISTAT, CG8, Arterial (12/22/2019 9:23 AM PDT) + + + + + + | Component | Value | Ref Range | Performed | Pathologist | | | | | At | Signature | + + + + + + | pH, | 7.314 (L) | 7.350 - 7.450 | [facility] | | | Arterial, | | [...] POC | performed at [facility];[address] | g/dL | LABORATORY | | | | [address];[place] | | | | | | [address] | | | | + + + + + + + + | Specimen | + + | | + + + + + + + | Performing | Address | City/State/Zipcode | Phone Number | | Organization | | | | + + + + + | [facility] | [address] | [place] [address] | [phone] | + + + + + POC [...] POC | performed at [facility];[address] | g/dL | LABORATORY | | | | [address];[place], [place] | | | | | | [address] | | | | + + + + + + + + | Specimen | + + | | + + + + + + + | Performing | Address | City/State/Zipcode | Phone Number | | Organization | | | | + + + + + | [facility] | [address] | [place] [address] | [phone] | + + + + + POC [...] POC | performed at [facility];[address] | g/dL | LABORATORY | | | | [address];[place], [place] | | | | | | [address] | | | | + + + + + + + + | Specimen | + + | | + + + + + + + | Performing | Address | City/State/Zipcode | Phone Number | | Organization | | | | + + + + + | [facility] | [address] | [place] [address] | [phone] | + + + + + Type [...] + + + | BB BAND | [id number] | | [facility] | | | | | | LABORATORY | | + + + + + + | UNIT # | [id number] | | [facility] | | | | [...] RESULT | performed at [facility];[address] | | LABORATORY | | | | [address];[place] | | | | | | [address] | | | | + + + + + + | UNIT # | [id number] | | [facility] | | | | [...] + + + + + | [facility] | [address] | [place] [address] | [phone] | + + + + + POC Glucose (12/22/2019 5:35 AM PDT) + + + + + + | Component | Value | Ref Range | Performed | Pathologist | | | | | At | Signature | + + + + + + | Glucose, | 155 (H)Comment: Testing | 65 - 99 mg/dL | [facility] | | | POC | performed at [facility];[address] | | LABORATORY | | | | [address];[place] | | | | | | [address] | | | | + + + + + + + + | Specimen | + + | | + + + + + + + | Performing | Address | City/State/Zipcode | Phone Number | | Organization | | | | + + + + + | [facility] | [address] | [place] [address] | [phone] | + + + + + Protime INR (12/22/2019 5:26 AM PDT) + + + + + + | Component | Value | Ref Range | Performed | Pathologist | | | | | At | Signature | + + + + + + | INR | 1.2Comment: REFERENCE | | [facility] | | | | RANGE:0.9 - [...] | | performed at [facility];[address] | | | | | | [address];[place], [place] | | | | | | [address] | | | | + + + + + + + + | Specimen | + + | Blood | + + + + + + + | Performing | Address | City/State/Zipcode | Phone Number | | Organization | | | | + + + + + | [facility] | [address] | [place] [address] | [phone] | + + + + + CBC [...] | | | | | [place] [address] | | | | + + + + + + + + | Specimen | + + | Blood | + + + + + + + | Performing | Address | City/State/Zipcode | Phone Number | | Organization | | | | + + + + + | [facility] | [address] | [place] [address] | [phone] | + + + + + Magnesium (12/22/2019 5:26 AM PDT) + + + + + + | Component | Value | Ref Range | Performed | Pathologist | | | | | At | Signature | + + + + + + | Magnesium | 2.6 (H)Comment: Testing | 1.7 - 2.4 mg/dL | [facility] | | | | performed at [facility], [address] | | LABORATORY | | | | [address], | | | | | | [place] [address] | | | | + + + + + + + + | Specimen | + + | Blood | + + + + + + + | Performing | Address | City/State/Zipcode | Phone Number | | Organization | | | | + + + + + | [facility] | [address] | [place] [address] | [phone] | + + + + + Basic [...] (L)Comment: GFR <60: | >60 | [facility] | | | GFR | CHRONIC [...] W | | | | | | [facility], | | | | | | [place] [address] | | | | + + + + + + + + | Specimen | + + | Blood | + + + + + + + | Performing | Address | City/State/Zipcode | Phone Number | | Organization | | | | + + + + + | [facility] | [address] | [place] [address] | [phone] | + + + + + POC [...] POC | performed at [facility];[address] | | LABORATORY | | | | [address];[place] | | | | | | [address] | | | | + + + + + + + + | Specimen | + + | | + + + + + + + | Performing | Address | City/State/Zipcode | Phone Number | | Organization | | | | + + + + + | [facility] | [address] | [place] [address] | [phone] | + + + + + POC Glucose (12/21/2019 9:11 PM PDT) + + + + + + | Component | Value | Ref Range | Performed | Pathologist | | | | | At | Signature | + + + + + + | Glucose, | 182 (H)Comment: Testing | 65 - 99 mg/dL | [facility] | | | POC | performed at [facility];[address] | | LABORATORY | | | | [address];[place] | | | | | | [address] | | | | + + + + + + + + | Specimen | + + | | + + + + + + + | Performing | Address | City/State/Zipcode | Phone Number | | Organization | | | | + + + + + | [facility] | [address] | [place] [address] | [phone] | + + + + + documented [...] | | | | | | | 9407-6222 Use NIGHT DOSE for | | | | | | | doses scheduled: HS, | | | | | | | Nighttime 5395-7326 If the BG is | | | [...] +-------+ +-------+---+---+ +---+---+ | | | +---+---+ +---+ | | +---+ + +--------+ +--------+------+------+ | Medication Order | MAR | Action | Dose | Rate | Site | | | Action | Date | | | | + +--------+ +--------+------+------+ | bupivacaine (PF) (MARCAINE) | Given | 12/22/19 | 30 mLs | | | | 0.25% injection PRN, Starting | | 20 10:26 | | | | | 12/22/19 at 1026, Intra-op | | AM PDT | | | | + +--------+ +--------+------+------+ +---+---+ | | | +---+---+ documented in [...]
--- OUTSIDE RECORDS SUMMARY | ~2020-01-01 | XMS | Encounter Summary ---
Demographics + + + | Address | [address] | | | [place] [address] | + + + | Home Phone [...] + + | Author | [facility] | | | and [place] | + + + | Organization | [facility] | | [...] [place] | | | | | [address] | | + + + + + | Deanna Lawson | ECON | Unknown | | + + + + + Care Team Providers + +------+ + | Care Medical Science Liaison Name | Role | Phone | + +------+ + | Barbara Gilman MD | PCP | | + +------+ + Encounter Details +--------+ + + + + | Date | Type | Department | Care Team | Description | +--------+ + + + + | 06/25/ | Orders Only | [facility] | Charlee Oswald | | | 2018 | | CARDIOLOGY [facility] | [address] | | | | | [address] | [address] | | | | | [address] | [place] [address] | | | | | [place] | [phone] | | | | | [address] | | | | | | [phone] | | | +--------+ + + + [...] 2019 | Visit | | [address] | | | | | | [place] | | | | | | [address] | | | | | | | [...] [place] | | | | | | [address] | | | | | | | [...]
--- OUTSIDE RECORDS SUMMARY | ~2020-01-01 | XMS | Encounter Summary ---
Demographics + + + | Address | [address] | | | [place] [address] | + + + | Home Phone [...] [place] | | | | | [address] | | + + + + + | Deanna Lawson | ECON | Unknown | | + + + + + Care Team Providers + +------+ + | Care Loss Control Technician Name | Role | Phone | [...] | Chronic kidney | | | | [place], [place] | [phone] | disease, stage III | | | | [address] | | (moderate) ([facility]LY [facility]); | | | | [phone] | | Chronic diastolic | | | | | | heart failure ([facility]) | +--------+ + + + + Social [...] [place] | | | | | | [address] | | | | | | | [...] [place] | | | | | | [address] | | | | | | | [...] | | e | heart failure ([facility]) | 12/27/2018, Expires: | | | | | Essential (primary) | 12/27/2019 | | | | | hypertension | | | | | | Chronic kidney | | | | | | disease, stage III | | | | | | (moderate) ([facility]) | | + +------+--------+ + + | Urinalysis with | Lab | Routin | Chronic diastolic | Expected: | | Microscopic if | | e | heart failure ([facility]) | 12/27/2018, Expires: | | Indicated | | | Essential (primary) | 12/27/2019 | | | | | hypertension | | | | | | Chronic kidney | | | | | | disease, stage III | | | | | | (moderate) ([facility]) | | + +------+--------+ + + | Uric Acid | Lab | Routin | Chronic diastolic | Expected: | | | | e | heart failure ([facility]) | 12/27/2018, Expires: | | | | | Essential (primary) | 12/27/2019 | | | | | hypertension | | | | | | Chronic kidney | | | | | | disease, stage III | | | | | | (moderate) ([facility]) | | + +------+--------+ + + | Renal Function Panel | Lab | Routin | Chronic kidney | Expected: | | | | e | disease, stage III | 03/21/2019, Expires: | | | | | (moderate) ([facility]) | 08/19/2020 | + +------+--------+ + + | CBC with | Lab | Routin | Chronic kidney | Expected: | | Differential | | e | disease, stage III | 03/21/2019, Expires: | | | | | (moderate) ([facility]) | 08/19/2020 | + +------+--------+ + + | Magnesium | Lab | Routin | Chronic kidney | Expected: | | | | e | disease, stage III | 03/21/2019, Expires: | | | | | (moderate) ([facility]) | 08/19/2020 | + +------+--------+ + + | Uric Acid | Lab | Routin | Chronic kidney | Expected: | | | | e | disease, stage III | 03/21/2019, Expires: | | | | | (moderate) ([facility]) | 08/19/2020 | + +------+--------+ + + | Parathyroid Hormone, | Lab | Routin | Chronic kidney | Expected: | | Intact | | e | disease, stage III | 03/21/2019, Expires: | | | | | (moderate) ([facility]) | 08/19/2020 | + +------+--------+ + + | Protein/Creatinine | Lab | Routin | Chronic kidney | Expected: | | Ratio, Urine | | e | disease, stage III | 03/21/2019, Expires: | | | | | (moderate) ([facility]) | 08/19/2020 | + +------+--------+ + + [...]
--- OUTSIDE RECORDS SUMMARY | ~2020-01-01 | XMS | Encounter Summary ---
Demographics + + + | Address | [address] | | | [place] [address] | + + + | Home Phone [...] [place] | | | | | [address] | | + + + + + | Deanna Lawson | ECON | Unknown | | + + + + + Care Team Providers + +------+ + | Care Leader Assembler Name | Role | Phone | [...] Provider Unknown | | | | | [place], [place] | | | | | | [address] | (Fax) | | | | | [phone] | | | +--------+ + + + [...] [place] | | | | | | [address] | | | | | | | [...] [place] | | | | | | [address] | | | | | | | [...]
--- OUTSIDE RECORDS SUMMARY | ~2020-01-01 | XMS | Encounter Summary ---
Demographics + + + | Address | [address] | | | [place] [address] | + + + | Home Phone [...] [place] | | | | | [address] | | + + + + + | Deanna Lawson | ECON | Unknown | | + + + + + Care Team Providers + +------+ + | Care Credit Or Loans Officer Name | Role | Phone | + +------+ + PCP | Unavailable | + +------+ + Encounter Details +--------+ + + + + | Date | Type | Department | Care Team | Description | +--------+ + + + + | 08/29/ | Orders Only | [facility] | Conversion | | | 2018 | | CARDIOLOGY [place] | Transaction, | | | | | [address] | Provider Unknown | | | | | [place], [place] | [phone] | | | | | [address] | | | | | | [phone] | | | +--------+ + + + [...] [place] | | | | | | [address] | | | | | | | | +--------+ + + + + | 02/09/ | Procedure | Cardiology | | | | 2019 | visit | | | | +--------+ + + + + | 03/09/ | Office | Nephrology | Isiah Jade MD | | | 2019 | Visit | | [address] [facility] | | | | | | [address] [place] | | | | | | [address] | | | | | | | [...]
--- OUTSIDE RECORDS SUMMARY | ~2020-01-01 | XMS | Encounter Summary ---
Demographics + + + | Address | [address] | | | [place] [address] | + + + | Home Phone [...] [place] | | | | | [address] | | + + + + + | Deanna Lawson | ECON | Unknown | | + + + + + Care Team Providers + +------+ + | Care Architectural Representative Name | Role | Phone | + +------+ + | Barbara Gilman MD | PCP | | + +------+ + Encounter Details +--------+ + + + + | Date | Type | Department | Care Team | Description | +--------+ + + + + | 09/08/ | Orders Only | [facility] | Todd Iqbal Ajith | | | 2016 | | CARDIOLOGY [place] | MD [address] | | | | | [address] | [address] F | | | | | [address] | [place] [address] | | | | | [place], [place] | [phone] | | | | | [address] | | | | | | [phone] | | | +--------+ + + + [...] [place] | | | | | | [address] | | | | | | | [...] [place] | | | | | | [address] | | | | | | | [...] Performed At | + + + | [facility]ARDIOLOG[facility] Nuclear Lexiscan Stress Test History: | [...] [place] Conversion - 04/11/2019 [address] [facility] | | Nuclear Lexiscan Stress [...]
--- OUTSIDE RECORDS SUMMARY | ~2020-01-01 | XMS | Encounter Summary ---
Demographics + + + | Address | [address] | | | [place] [address] | + + + | Home Phone [...] [place] | | | | | [address] | | + + + + + | Deanna Lawson | ECON | Unknown | | + + + + + Care Team Providers + +------+ + | Care Instructor Looping Name | Role | Phone | + [...] + + | 08/12/ | Procedure | [facility] | | Cardiac pacemaker in | | 2019 | visit | CARDIOLOGY [place] | | situ (Primary Dx) | | | | [address] | | | | | | [place] | | | | | | [address] | | | | | | [phone] | | | +--------+ + + + [...] | | | | | [place], [place] | | | | | | [address] | | | | | | | | +--------+ + + + + | 02/09/ | Procedure | Cardiology | | | | 2019 | visit | | | | +--------+ + + + + | 03/09/ | Office | Nephrology | Isiah Jade MD | | | 2019 | Visit | | [address] [facility] | | | | | | [address] [place], [place] | | | | | | [address] | | | | | | | [...] Mercedez Jensen | LUCA | | [employer] Associate Juvenile Court Judge 08/12/2019 4:09 [facility] | | | INTERROGATION REPORT Name: Andres Guzmán PCP: Barbara Elkins | | | MD Mukul : [id number]: [id number] Primary cardiology | | | provider: Charlee Oswald Primary electrophysiology provider: Enoch | | | Jay Device red hat linux administrator: Medlanes Device type: Single | | | chamber [...]
--- OUTSIDE RECORDS SUMMARY | ~2020-01-01 | XMS | Encounter Summary ---
Demographics + + + | Address | [address] | | | [place] [address] | + + + | Home Phone [...] [place] | | | | | [address] | | + + + + + | Deanna Lawson | ECON | Unknown | | + + + + + Care Team Providers + +------+ + | Care Floor Runner Name | Role | Phone | + [...] + + | 12/20/ | Hospital | [facility] | Julián Messina MD | Acute GI bleeding | | 2020 - | Encounter | [facility] | [address] | (Primary Dx); Closed | | | | [address] | [address] [place], [place] | comminuted | | 12/31/ | | [place], [place] | [address] | intertrochanteric | | 2020 | | [address] | | fracture of right | | | | [phone] | Regino Greene MD | femur with routine | | | | | [address] | healing; 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 Deanna Doe RN, CMSRN, [facility] Inpatient Wound Ostomy Care [phone] 01/01/2020 11:46 AM Chai, Savana Irving RN [...] BUNCREARATIO 25 12/31/2019 PTH 72.57 (A) 04/01/2019 [id number] 25.2 (L) 12/27/2019 CALCIUM 8.5 12/31/2019 PHOS [...] been following up with ENEDINA mena in [place]. He has unrecovered acute kidney injury and a higher baseline creatinine. At this time there is no clinical uremia, refractory volume overload, refractory acidosis, refractory hyperkalemia and no urgent indication of starting SUPERINTENDENT TRANSMISSION. Neither is there an indication for diagnostic [...] Incentive spirometry. Transfuse Prn. No indication for SUPERINTENDENT TRANSMISSION for now. Await renal recovery. I discussed [...] was completed later after rounds. Dictation software, [employer], was used which may contain error for [...] but not limited to potential need for SUPERINTENDENT TRANSMISSION . This is a patient with multiple [...] wound RN note for treatment. [facility] ed, continue wound care at swing bed, send with extra dressing supplies. *Metabolic bone disorder: elevated PTH and phosphorus. Treatment per cotton ball machine tender (see thei r note). Subjective No chest [...] who was admitted as a transfer from [facility] due t o a mechanical [...] and he was accepted by [facility] in [place], [place] for rehabilitation purposes. Hospital stay was [...] Medications Current Facilty-Administered PRN Medications Ordered in [facility] Medication Dose Route Frequency Provider Last Rate [...] week, he is accepted at [facility] in [place] with discharge plans tomorrow for rehabilit ation [...] discharge plans to [facility] in [facility] tomorrow. DVT prophylaxis with SCD's only due to risks of bleeding. Discharge plans tomorrow to [facility] in [place], [place] for rehabi litation. Called his daughter Ms. Huerta and left a message with updated information at phone number [phone]. Jerry Chino MD 12/30/2019 turgill, DALILA Keys - 12/30/2019 12:35 PM PDTFormatting of this note might be different from the [facility] Service: Gastroenterology Consult Progress Note [...] RT BID carvedilol 3.125 mg Oral BID ferrous sulfate 325 mg Oral Every Other Day insulin lispro 0-12 Units Subcutaneous TID [START ON 12/31/2019] levoFLOXacin 250 mg Oral [...] deficits. PSYCHIATRIC: Appropriate, affect appears normal [facility] Gastroenterology Patient Name: Andres Guzmán Procedure [...] physician, the nurse, the anesthesiologist and the emergency response technician in the pre-procedure area in the [...] successful. Thermal coagulation with Gold probe 7 Spanish x 5 pulses was successful with hemostasis. [...] 8:36 AM Number of Addenda: 0 [facility] DATA Lab Results Component Value Date [...] with any questions. Florina Cantu PA-C [facility] Gastroenterology 12/30/2019 Associated attestation - Lamont Hernandez MD - 12/31/2019 2:17 PM [id number] male with GI bleeding due to duodenal ulcer with visible vessel. The ulcer and visible vessel were tr eated with injection and gold probe thermal coagulation. The patient was seen and examined by me personally. The case was discussed with the physician's cosmetic sales assistant and I agree with the assessment and p tim as outlined in the note. Continue PPI IV infusion for total of 72 hours and then when patient is discharged he must be on twice daily PPI for 8 weeks. Resume Eliquis in 1 week. Lamont Hernandez MD Gastroenterology staffSmith, Marycarmen Hubbard [facility] - 12/30/2019 11:05 AM PDTFormatting of [...] status. Disposition: Plan to discharge tomorrow, to Retirement Facility, once medically stable and cleared by [...] BUNCREARATIO 23 12/30/2019 PTH 72.57 (A) 04/01/2019 [id number] 25.2 (L) 12/27/2019 CALCIUM 8.6 12/30/2019 PHOS [...] been following up with ENEDINA mena in [place]. That had improved with nonoliguric state but now seems to have leveled off at around 3 and this may be reflection of unrecovered acute kidney injury and a higher baseline creatinine. At this time there is no clinical uremia, refractory volume overload, refractory acidosis, refractory hyperkalemia and no urgent indication of starting SUPERINTENDENT TRANSMISSION. Neither is there an indication for diagnostic [...] Incentive spirometry. Transfuse Prn. No indication for SUPERINTENDENT TRANSMISSION for now. Await renal recovery. I discussed [...] was completed later after rounds. Dictation software, [employer], was used which may contain error for [...] but not limited to potential need for SUPERINTENDENT TRANSMISSION . This is a patient with multiple [...] BUNCREARATIO 30 12/29/2019 PTH 72.57 (A) 04/01/2019 [id number] 25.2 (L) 12/27/2019 CALCIUM 8.7 12/29/2019 PHOS [...] been following up with ENEDINA mena in [place]. That seems to be improving with nonoliguric state and small reduction in creatinine. At this time there is no clinical uremia, refractory volume overload, refractory acidosis, refractory hyperkalemia and no urgent indication of starting SUPERINTENDENT TRANSMISSION. Neither is there an indication for diagnostic [...] Incentive spirometry. Transfuse Prn. No indication for SUPERINTENDENT TRANSMISSION for now. Await renal recovery. I discussed [...] was completed later after rounds. Dictation software, [employer], was used which may contain error for [...] but not limited to potential need for SUPERINTENDENT TRANSMISSION . acetaminophen 1,000 mg Oral 3 times [...] who was admitted as a transfer from [facility] due t o a mechanical [...] finding placement and he was accepted by [facility] in [place], [place] for rehabilitation purposes. Hospita l stay [...] Medications Current Facilty-Administered PRN Medications Ordered in [facility] Medication Dose Route Frequency Provider Last Rate [...] rehabilitation, he is accepted by [facility] in [place], [place] with discharge plans early next weeks [...] another 1 to 2 to SNF in [place], [place] if remains stable and improve d. Called his daughter Ms. Huerta and updated her about plans at phone number [phone]. Jerry Chino MD 12/29/2019 oNrma Sarabia RN - 12/29/2019 6:02 AM PDTPatient [...] 4:46 PM PDT [id number] LOS: 7 days Anders Guzmán is a 89 y.o. man followed [...] BUNCREARATIO 28 12/28/2019 PTH 72.57 (A) 04/01/2019 [id number] 25.2 (L) 12/27/2019 CALCIUM 8.5 12/28/2019 PHOS [...] been following up with ENEDINA mena in [place]. That seems to be improving with nonoliguric state and small reduction in creatinine. At this time there is no clinical uremia, refractory volume overload, refractory acidosis, refractory hyperkalemia and no urgent indication of starting SUPERINTENDENT TRANSMISSION. Neither is there an indication for diagnostic [...] Incentive spirometry. Transfuse Prn. No indication for SUPERINTENDENT TRANSMISSION for now. Await renal recovery. I discussed [...] was completed later after rounds. Dictation software, [employer], was used which may contain error for [...] but not limited to potential need for SUPERINTENDENT TRANSMISSION . acetaminophen 1,000 mg Oral 3 times [...] Grant - 12/28/2019 10:49 AM PDT [facility]: Orthopedic Surgery Progress Note Hospital [...] DALILA Peralta has created this entry using [employer]ips and inmobly macros. The entry has been reviewed and there may still exist sound alike word errors. Jerry Alcantar MD - 12/28/2019 8:56 AM PDTFormatting of this note might be different from the origi nal. Service: Hospitalist Daily Progress Note [facility] 89 [facility] : 1930 SEX: male PCP: Barbara Gilman MD Hospital Day: LOS: 7 SUBJECTIVE Patient Summary: Patient is an 89-year-old male with past medical history of HTN, DM Type 2, CKD Stage III w ith baseline creatinine 1.7 who was admitted as a transfer from [facility] due t o a mechanical [...] finding placement and he was accepted by [facility] in [place], [place] for rehabilitation purposes. Hospita l stay [...] making slow progress, he is accepted by [facility] in [place], [place] with discharge plans possib ly early [...] 1 to 2 to a SNF in [place], [place] when renal functions are st able and cleared by Nephrology services. Also called his daughter Ms. Huerta and updated her a bout plans at phone number [phone]. Jerry Chino MD 12/28/2019 Ghazal Ferrer COTA - 12/27/2019 4:15 PM PDT MISSED OCCUPATIONAL THERAPY VISIT: Therapy attempted to see the following patient today: Andres Guzmán Missed Visit (treatment on hold) The reason for the missed visit was: pt supine in bed upon FERN GATHERER arrival. Pt jsut recieving 2 units of [...] been following up with ENEDINA mena in [place]. That seems to be improving with nonoliguric state and small reduction in creatinine. At this time there is no clinical uremia, refractory volume overload, refractory acidosis, refractory hyperkalemia and no urgent indication of starting SUPERINTENDENT TRANSMISSION. Neither is there an indication for diagnostic [...] Incentive spirometry. Transfuse Prn. No indication for SUPERINTENDENT TRANSMISSION for now. Await renal recovery. I discussed [...] was completed later after rounds. Dictation software, [employer], was used which may contain error for [...] but not limited to potential need for SUPERINTENDENT TRANSMISSION . acetaminophen 1,000 mg Oral 3 times [...] Oral Daily with dinner dextrose 10% Marycarmen Park, PREFORM PLATE MAKER - 12/27/2019 11:03 AM PDT ORTHOPEDIC SURGERY [...] status. Disposition: Plan to discharge Monday, to Retirement Facility, once medically stable a nd cleared [...] Net -400 ml . Treatment plan: per cotton ball machine tender; slowly improving. *Blood pressure: labile; See VS [...] disorder: elevated PTH and phosphorus. Treatment per cotton ball machine tender (see thei r note). Subjective No chest [...] signed by: ENEDINA Ramos, 12/27/2019 11:03 AM ashmiJerry MD - 0 8:01 AM PDT Service: Hospitalist Daily Progress Note Andres Guzmán 89 y.o. : 1930 SEX: male PCP: Barbara Gilman MD Hospital Day: LOS: 6 SUBJECTIVE Patient Summary: Patient is an 89-year-old male with past medical history of HTN, DM Type 2, CKD Stage III w ith baseline creatinine 1.7 who was admitted as a transfer from [facility] due t o a mechanical [...] trength and mobility. He is accepted by [facility] in [place], [place] and discharge is delayed due to [...] to 3 days to a SNF in [place], [place] when renal functions a re stable and cleared by Nephrology services. Jerry Chino MD 12/27/2019 Linda Montalvo RN - 12/26/2019 5:09 PM PDT [facility]: Wound Care Consult Note Hospital [...] any additional questions. Linda Cedeno RN 17:16 lfie Marycarmen blackwellSAMRAP - 12/26/2019 12:55 PM PDTFormatting of this note might be different from the greer alicja ORTHOPEDIC SURGERY PROGRESS NOTE Patient Name: Andres [...] who was admitted as a transfer from [facility] due t o a mechanical [...] Medications Current Facilty-Administered PRN Medications Ordered in [facility] Medication Dose Route Frequency Provider Last Rate [...] IV Sodium Bicarbonate and monitor BMP. Nephro olivier versus on board and Dr. 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 Huerta and the at phone number [phone] Code Status: Full Code Regino Greene MD [...] status. Disposition: Plan to discharge Monday, to Retirement Facility, once medically stable a nd cleared [...] lab follow-up and treatment per hospitalist and cotton ball machine tender. *Blood pressure: hypotensive; See VS for BP trending. 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 Current Weight: 63.5 kg (140 lb) [...] Dr. Huerta and the at phone number [phone] Code Status: Full Code Regino Greene MD 12/24/2019 7:10 PM Marycarmen Park , [facility] 12/24/2019 1:28 PM PDT . ORTHOPEDIC SURGERY [...] Vital Signs: Vitals with Comments 12/23/2019 12/23/2019 12/23/201912/23/2019 SYSTOLIC 110 105 101 101 DIASTOLIC 54 [...] any conversation with family members today. Inpatient vision rehabilitation therapist. Code Status: Full Code Regino Greene [...] Oral Daily carvedilol 25 mg Oral BID ceFAZolin 1 g Intravenous 2 times per [...] Andria Alston PharmD 12/22/2019 12:35 PM Sendy Hemphill, RN - 12/22/2019 8:30 AM PDTPt K+ [...] [place] | | | | | | [address] | | | | | | | [...] [place] | | | | | | [address] | | | | | | | [...] + +--------+ + + + | *TERMED* VT UPPER GI | Routin | 12/29/2019 | [...] +--------+ + + + | FL Mckayla ARM | Routin | 12/22/2019 | | Results for this | | | e | 10:28 AM | | procedure are in the | | | | PDT | | results section. | + +--------+ + + + | POC ISLAURELTNATHANAEL, | Routin | 12/22/2019 | | Results [...] | | POC | performed at [facility] | | LABORATORY | | | | [address];[place], [place] | | | | | | [address] | | | | + + + + + + + + | Specimen | + + | | + + + + + + + | Performing | Address | City/State/Zipcode | Phone Number | | Organization | | | | + + + + + | [facility] | [address] | [place] [address] | [phone] | + + + + + POC [...] | | POC | performed at [facility];[address] | | LABORATORY | | | | [address];[place], [place] | | | | | | [address] | | | | + + + + + + + + | Specimen | + + | | + + + + + + + | Performing | Address | City/State/Zipcode | Phone Number | | Organization | | | | + + + + + | [facility] | [address] | [place] [address] | [phone] | + + + + + Basic [...] | | | | performed at [facility];[address] | | | | | | [facility];[place], [place] | | | | | | [address] | | | | + + + + + + + + | Specimen | + + | Blood | + + + + + + + | Performing | Address | City/State/Zipcode | Phone Number | | Organization | | | | + + + + + | [facility] | [address] | [place] [address] | [phone] | + + + + + CBC [...] | | Absolute | performed at [facility];[address] | K/uL | LABORATORY | | | | [facility];[place], [place] | | | | | | [address] | | | | + + + + + + + + | Specimen | + + | Blood | + + + + + + + | Performing | Address | City/State/Zipcode | Phone Number | | Organization | | | | + + + + + | [facility] | [address] | [place] [address] | [phone] | + + + + + POC [...] | | POC | performed at [facility];[address] | | LABORATORY | | | | [address];[place] | | | | | | [address] | | | | + + + + + + + + | Specimen | + + | | + + + + + + + | Performing | Address | City/State/Zipcode | Phone Number | | Organization | | | | + + + + + | [facility] | [address] | [place] [address] | [phone] | + + + + + POC Glucose (12/31/2019 5:31 PM PDT) + + + + + + | Component | Value | Ref Range | Performed | Pathologist | | | | | At | Signature | + + + + + + | Glucose, | 196 (H)Comment: Testing | 65 - 99 mg/dL | [facility] | | | POC | performed at [facility];[address] | | LABORATORY | | | | [address];[place], [place] | | | | | | [address] | | | | + + + + + + + + | Specimen | + + | | + + + + + + + | Performing | Address | City/State/Zipcode | Phone Number | | Organization | | | | + + + + + | [facility] | [address] | [place] [address] | [phone] | + + + + + POC [...] | | POC | performed at [facility];[address] | | LABORATORY | | | | [address];[place], [place] | | | | | | [address] | | | | + + + + + + + + | Specimen | + + | | + + + + + + + | Performing | Address | City/State/Zipcode | Phone Number | | Organization | | | | + + + + + | [facility] | [address] | [place] [address] | [phone] | + + + + + POC Glucose (12/31/2019 6:36 AM PDT) + + + + + + | Component | Value | Ref Range | Performed | Pathologist | | | | | At | Signature | + + + + + + | Glucose, | 154 (H)Comment: Testing | 65 - 99 mg/dL | [facility] | | | POC | performed at [facility];[address] | | LABORATORY | | | | [address];[place], [place] | | | | | | [address] | | | | + + + + + + + + | Specimen | + + | | + + + + + + + | Performing | Address | City/State/Zipcode | Phone Number | | Organization | | | | + + + + + | [facility] | [address] | [place] [address] | [phone] | + + + + + Basic [...] | | | | | performed at [facility], [address] | | | | | | [address], | | | | | | [place] [address] | | | | + + + + + + + + | Specimen | + + | Blood | + + + + + + + | Performing | Address | City/State/Zipcode | Phone Number | | Organization | | | | + + + + + | [facility] | [address] | [place] [address] | [phone] | + + + + + CBC [...] | | | Absolute | performed at [facility], [address] | K/uL | LABORATORY | | | | [facility], | | | | | | [place] [address] | | | | + + + + + + + + | Specimen | + + | Blood | + + + + + + + | Performing | Address | City/State/Zipcode | Phone Number | | Organization | | | | + + + + + | [facility] | [address] | [place] [address] | [phone] | + + + + + POC Glucose (12/30/2019 8:55 PM PDT) + + + + + + | Component | Value | Ref Range | Performed | Pathologist | | | | | At | Signature | + + + + + + | Glucose, | 192 (H)Comment: Testing | 65 - 99 mg/dL | [facility] | | | POC | performed at [facility];[address] | | LABORATORY | | | | [address];[place] | | | | | | [address] | | | | + + + + + + + + | Specimen | + + | | + + + + + + + | Performing | Address | City/State/Zipcode | Phone Number | | Organization | | | | + + + + + | [facility] | [address] | [place] [address] | [phone] | + + + + + POC Glucose (12/30/2019 4:11 PM PDT) + + + + + + | Component | Value | Ref Range | Performed | Pathologist | | | | | At | Signature | + + + + + + | Glucose, | 130 (H)Comment: Testing | 65 - 99 mg/dL | [facility] | | | POC | performed at [facility];[address] | | LABORATORY | | | | [address];[place], [place] | | | | | | [address] | | | | + + + + + + + + | Specimen | + + | | + + + + + + + | Performing | Address | City/State/Zipcode | Phone Number | | Organization | | | | + + + + + | [facility] | [address] | [place] [address] | [phone] | + + + + + POC [...] | | POC | performed at [facility];[address] | | LABORATORY | | | | [address];[place], [place] | | | | | | [address] | | | | + + + + + + + + | Specimen | + + | | + + + + + + + | Performing | Address | City/State/Zipcode | Phone Number | | Organization | | | | + + + + + | [facility] | [address] | [place] [address] | [phone] | + + + + + Basic [...] 20 (L)Comment: GFR <60: | >60 | [facility] | | | GFR | CHRONIC [...] | | | | | MDRD [facility] traceable | | | | | | equation.Testing | | | | | | performed at [facility] | | | | | | [facility];[place], [place] | | | | | | [address] | | | | + + + + + + + + | Specimen | + + | Blood | + + + + + + + | Performing | Address | City/State/Zipcode | Phone Number | | Organization | | | | + + + + + | [facility] | [address] | [place] [address] | [phone] | + + + + + POC [...] | | POC | performed at [facility];[address] | | LABORATORY | | | | [address];[place] | | | | | | [address] | | | | + + + + + + + + | Specimen | + + | | + + + + + + + | Performing | Address | City/State/Zipcode | Phone Number | | Organization | | | | + + + + + | [facility] | [address] | [place] [address] | [phone] | + + + + + CBC [...] | | Absolute | performed at [facility];[address] | K/uL | LABORATORY | | | | [address];[place], [place] | | | | | | [address] | | | | + + + + + + + + | Specimen | + + | Blood | + + + + + + + | Performing | Address | City/State/Zipcode | Phone Number | | Organization | | | | + + + + + | [facility] | [address] | [place] [address] | [phone] | + + + + + POC [...] | | POC | performed at [facility];[address] | | LABORATORY | | | | [address];[place] | | | | | | [address] | | | | + + + + + + + + | Specimen | + + | | + + + + + + + | Performing | Address | City/State/Zipcode | Phone Number | | Organization | | | | + + + + + | [facility] | [address] | [place] [address] | [phone] | + + + + + Hemoglobin [...] | | | | performed at [facility] | | LABORATORY | | | | [address];[place], [place] | | | | | | [address] | | | | + + + + + + + + | Specimen | + + | Blood | + + + + + + + | Performing | Address | City/State/Zipcode | Phone Number | | Organization | | | | + + + + + | [facility] | [address] | [place] [address] | [phone] | + + + + + POC Glucose (12/29/2019 6:06 PM PDT) + + + + + + | Component | Value | Ref Range | Performed | Pathologist | | | | | At | Signature | + + + + + + | Glucose, | 128 (H)Comment: Testing | 65 - 99 mg/dL | [facility] | | | POC | performed at [facility];[address] | | LABORATORY | | | | [address];[place] | | | | | | [address] | | | | + + + + + + + + | Specimen | + + | | + + + + + + + | Performing | Address | City/State/Zipcode | Phone Number | | Organization | | | | + + + + + | [facility] | [address] | [place] [address] | [phone] | + + + + + Hemoglobin [...] | | | | performed at [facility];[address] | | LABORATORY | | | | [address];[place], [place] | | | | | | [address] | | | | + + + + + + + + | Specimen | + + | Blood | + + + + + + + | Performing | Address | City/State/Zipcode | Phone Number | | Organization | | | | + + + + + | [facility] | [address] | [place] [address] | [phone] | + + + + + POC Glucose (12/29/2019 11:43 AM PDT) + + + + + + | Component | Value | Ref Range | Performed | Pathologist | | | | | At | Signature | + + + + + + | Glucose, | 191 (H)Comment: Testing | 65 - 99 mg/dL | [facility] | | | POC | performed at [facility] | | LABORATORY | | | | [address];[place] | | | | | | [address] | | | | + + + + + + + + | Specimen | + + | | + + + + + + + | Performing | Address | City/State/Zipcode | Phone Number | | Organization | | | | + + + + + | [facility] | [address] | [place] [address] | [phone] | + + + + + POC Glucose (12/29/2019 11:06 AM PDT) + + + + + + | Component | Value | Ref Range | Performed | Pathologist | | | | | At | Signature | + + + + + + | Glucose, | 205 (H)Comment: Testing | 65 - 99 mg/dL | [facility] | | | POC | performed at [facility] | | LABORATORY | | | | [address];[place], [place] | | | | | | [address] | | | | + + + + + + + + | Specimen | + + | | + + + + + + + | Performing | Address | City/State/Zipcode | Phone Number | | Organization | | | | + + + + + | [facility] | [address] | [place] [address] | [phone] | + + + + + Surgical [...] | | technical component was performed by [employer], [address] [place] [employer] [address] | | | [place] [address] (Stunt Double: Padmini Sellers MD; CLIA# | | | [id number]). Professional interpretation was performed [employer] | | | [address], | | | [place] [address] (Stunt Double: Oscar Maynard M.D.; CLIA#: | | | [id number]). Diagnostician: Padmini Sellers | | | MDPathologistElectronically [...] | |The technical component was performed by [facility], [address] [place] [address] (Stunt Double: Padmini Sellers MD; CLIA# [id number]). Professional interpretation was performed by | | |[facility] [address] (Stunt Double: Oscar Maynard M.D.; CLIA#: [id number]). | | | | | |Diagnostician: Padmini [...] Performed At | + + + | [facility] | [facility] | | [facility] | [facility] | | [facility]ology | | | Patient Name: Andres Guzmán | | | Procedure Date: 12/29/2019 8:36 AMMRN: [id number] | | | of : 1930 | [...] the anesthesiologist and the | | | emergency response technician in the pre-procedure area in the [...] | | | with Gold probe 7 Spanish x 5 pulses was successful with | [...] | | AMNumber of Addenda: 0 [facility] | | | - Check hemoglobin q 6 hours for one day. | | | | | | | | |LAMONT HERNANDEZ MD | | |12/29/2019 10:19:54 AM | | |This report has been signed electronically. | | | | | |Note Initiated On: 12/29/2019 8:36 AM | | |Number of Addenda: 0 | | | | | | [facility] | | + + + + [...] | | | | performed at [facility] | | LABORATORY | | | | [address];[place], [place] | | | | | | [address] | | | | + + + + + + + + | Specimen | + + | Blood | + + + + + + + | Performing | Address | City/State/Zipcode | Phone Number | | Organization | | | | + + + + + | [facility] | [address] [facility] | [place] [address] | [phone] | + + + + + POC [...] | | POC | performed at [facility];[address] | | LABORATORY | | | | [address];[place], [place] | | | | | | [address] | | | | + + + + + + + + | Specimen | + + | | + + + + + + + | Performing | Address | City/State/Zipcode | Phone Number | | Organization | | | | + + + + + | [facility] | [address] | [place] [address] | [phone] | + + + + + Protime INR (12/29/2019 3:53 AM PDT) + + + + + + | Component | Value | Ref Range | Performed | Pathologist | | | | | At | Signature | + + + + + + | INR | 1.3Comment: REFERENCE | | [facility] | | | | RANGE:0.9 - [...] | | | | performed at [facility];[address] | | | | | | [address];[place] | | | | | | [address] | | | | + + + + + + + + | Specimen | + + | Blood | + + + + + + + | Performing | Address | City/State/Zipcode | Phone Number | | Organization | | | | + + + + + | [facility] | [address] | [place] [address] | [phone] | + + + + + Basic [...] | | | | performed at [facility];[address] | | | | | | [facility];[place], [place] | | | | | | [address] | | | | + + + + + + + + | Specimen | + + | Blood | + + + + + + + | Performing | Address | City/State/Zipcode | Phone Number | | Organization | | | | + + + + + | [facility] | [address] | [place] [address] | [phone] | + + + + + CBC [...] | | Absolute | performed at [facility];[address] | K/uL | LABORATORY | | | | [address];[place], [place] | | | | | | [address] | | | | + + + + + + + + | Specimen | + + | Blood | + + + + + + + | Performing | Address | City/State/Zipcode | Phone Number | | Organization | | | | + + + + + | [facility] | [address] | [place] [address] | [phone] | + + + + + POC Glucose (12/28/2019 11:27 PM PDT) + + + + + + | Component | Value | Ref Range | Performed | Pathologist | | | | | At | Signature | + + + + + + | Glucose, | 192 (H)Comment: Testing | 65 - 99 mg/dL | [facility] | | | POC | performed at [facility];[address] | | LABORATORY | | | | [address];[place] | | | | | | [address] | | | | + + + + + + + + | Specimen | + + | | + + + + + + + | Performing | Address | City/State/Zipcode | Phone Number | | Organization | | | | + + + + + | [facility] | [address] | [place] [address] | [phone] | + + + + + Hemoglobin [...] | | | | performed at [facility];[address] | | LABORATORY | | | | [address];[place], [place] | | | | | | [address] | | | | + + + + + + + + | Specimen | + + | Blood | + + + + + + + | Performing | Address | City/State/Zipcode | Phone Number | | Organization | | | | + + + + + | [facility] | [address] | [place] [address] | [phone] | + + + + + POC [...] | | POC | performed at [facility];[address] | | LABORATORY | | | | [address];[place] | | | | | | [address] | | | | + + + + + + + + | Specimen | + + | | + + + + + + + | Performing | Address | City/State/Zipcode | Phone Number | | Organization | | | | + + + + + | [facility] | [address] | [place] [address] | [phone] | + + + + + Fecal Hemoglobin (12/28/2019 7:20 PM PDT) + + + + + + | Component | Value | Ref Range | Performed | Pathologist | | | | | At | Signature | + + + + + + | FECAL | POSITIVE (A)Comment: | NEG | [facility] | | | OCCULT BLD | Testing performed at | | LABORATORY | | | | [facility];[address];[place] [address] | | | | + + + + + + + + | Specimen | + + | Stool - Stool | | specimen (specimen) | + + + + + + + | Performing | Address | City/State/Zipcode | Phone Number | | Organization | | | | + + + + + | [facility] | [address] | [place] [address] | [phone] | + + + + + POC [...] | | POC | performed at [facility];[address] | | LABORATORY | | | | [address];[place], [place] | | | | | | [address] | | | | + + + + + + + + | Specimen | + + | | + + + + + + + | Performing | Address | City/State/Zipcode | Phone Number | | Organization | | | | + + + + + | [facility] | [address] | [place] [address] | [phone] | + + + + + Hemoglobin [...] | | | | performed at [facility];[address] | | LABORATORY | | | | [address];[place] | | | | | | [address] | | | | + + + + + + + + | Specimen | + + | Blood | + + + + + + + | Performing | Address | City/State/Zipcode | Phone Number | | Organization | | | | + + + + + | [facility] | [address] | [place] [address] | [phone] | + + + + + POC [...] | | POC | performed at [facility];[address] | | LABORATORY | | | | [address];[place], [place] | | | | | | [address] | | | | + + + + + + + + | Specimen | + + | | + + + + + + + | Performing | Address | City/State/Zipcode | Phone Number | | Organization | | | | + + + + + | [facility] | [address] | [place] [address] | [phone] | + + + + + POC [...] | | POC | performed at [facility];[address] | | LABORATORY | | | | [address];[place] | | | | | | [address] | | | | + + + + + + + + | Specimen | + + | | + + + + + + + | Performing | Address | City/State/Zipcode | Phone Number | | Organization | | | | + + + + + | [facility] | [address] | [place] [address] | [phone] | + + + + + Basic [...] | 8.5 | 8.5 - 10.5 | [facility] | | | | | mg/dL | LABORATORY | | + + + + + + | Estimated | 16 (L)Comment: GFR <60: | >60 | [facility] | | | GFR | CHRONIC [...] | | | | | | MDRD IDMA traceable | | | | | | equation.Testing | | | | | | performed at [facility], [address] | | | | | | [facility], | | | | | | [place] [address] | | | | + + + + + + + + | Specimen | + + | Blood | + + + + + + + | Performing | Address | City/State/Zipcode | Phone Number | | Organization | | | | + + + + + | [facility] | [address] | [place] [address] | [phone] | + + + + + CBC [...] | | | Absolute | performed at [facility], [address] | K/uL | LABORATORY | | | | [address], | | | | | | [place] [address] | | | | + + + + + + + + | Specimen | + + | Blood | + + + + + + + | Performing | Address | City/State/Zipcode | Phone Number | | Organization | | | | + + + + + | [facility] | [address] [address] [facility] | [place] [address] | [phone] | + + + + + POC Glucose (12/27/2019 8:44 PM PDT) + + + + + + | Component | Value | Ref Range | Performed | Pathologist | | | | | At | Signature | + + + + + + | Glucose, | 191 (H)Comment: Testing | 65 - 99 mg/dL | [facility] | | | POC | performed at [facility];[address] | | LABORATORY | | | | [address];[place] | | | | | | [address] | | | | + + + + + + + + | Specimen | + + | | + + + + + + + | Performing | Address | City/State/Zipcode | Phone Number | | Organization | | | | + + + + + | [facility] | [address] | [place] [address] | [phone] | + + + + + POC Glucose (12/27/2019 3:30 PM PDT) + + + + + + | Component | Value | Ref Range | Performed | Pathologist | | | | | At | Signature | + + + + + + | Glucose, | 156 (H)Comment: Testing | 65 - 99 mg/dL | [facility] | | | POC | performed at [facility];[address] | | LABORATORY | | | | [address];[place] | | | | | | [address] | | | | + + + + + + + + | Specimen | + + | | + + + + + + + | Performing | Address | City/State/Zipcode | Phone Number | | Organization | | | | + + + + + | [facility] | [address] | [place] [address] | [phone] | + + + + + Red [...] BANK | Testing performed at | | [facility] | | | COMMENT | [facility];[address] | | LABORATORY | | | | [address];[place] [address] | | | | + + + + + + + + | Specimen | + + | | + + + + + + + | Performing | Address | City/State/Zipcode | Phone Number | | Organization | | | | + + + + + | [facility] | [address] | [place] [address] | [phone] | + + + + + Type [...] + + + | BB BAND | [id number] | | [facility] | | | | | | LABORATORY | | + + + + + + | UNIT # | [id number] | | [facility] | | | | [...] + + + | UNIT # | [id number] | | [facility] | | | | [...] | | RESULT | performed at [facility];[address] | | LABORATORY | | | | [address];[place], [place] | | | | | | [address] | | | | + + + + + + + + | Specimen | + + | Blood | + + + + + + + | Performing | Address | City/State/Zipcode | Phone Number | | Organization | | | | + + + + + | [facility] | [address] | [place] [address] | [phone] | + + + + + POC [...] | | POC | performed at [facility];[address] | | LABORATORY | | | | [address];[place], [place] | | | | | | [address] | | | | + + + + + + + + | Specimen | + + | | + + + + + + + | Performing | Address | City/State/Zipcode | Phone Number | | Organization | | | | + + + + + | [facility] | [address] | [place] [address] | [phone] | + + + + + CBC [...] | | | Absolute | performed at [facility], [address] | K/uL | LABORATORY | | | | [address], | | | | | | [place] [address] | | | | + + + + + + + + | Specimen | + + | | + + + + + + + | Performing | Address | City/State/Zipcode | Phone Number | | Organization | | | | + + + + + | [facility] | [address] | [place] [address] | [phone] | + + + + + Procalcitonin (12/27/2019 5:04 AM PDT) + + + + + + | Component | Value | Ref Range | Performed | Pathologist | | | | | At | Signature | + + + + + + | PROCALCITON | 0.41Comment: | <0.5 ng/mL | [facility] | | | IN | INTERPRETIVE [...] | | | | | at [facility];[address] [place] [address] | | | | | | [facility];[place] [address] | | | | + + + + + + + + | Specimen | + + | Blood | + + + + + + + | Performing | Address | City/State/Zipcode | Phone Number | | Organization | | | | + + + + + | [facility] | [address] | [place] [address] | [phone] | + + + + + Basic [...] 13 (L)Comment: GFR <60: | >60 | [facility] | | | GFR | CHRONIC [...] | | | | | MDRD [facility] traceable | | | | | | equation.Testing | | | | | | performed at [facility], [address] | | | | | | [facility], | | | | | | [place] [address] | | | | + + + + + + + + | Specimen | + + | Blood | + + + + + + + | Performing | Address | City/State/Zipcode | Phone Number | | Organization | | | | + + + + + | [facility] | [address] | [place] [address] | [phone] | + + + + + Vitamin D, Deficiency Screen (25-Hydroxy) (12/27/2019 5:04 AM PDT) + + + + + + | Component | Value | Ref Range | Performed | Pathologist | | | | | At | Signature | + + + + + + | Vit D, | 25.2 (L)Comment: Vitamin | 30.0 - 100.0 | [facility] | | | 25-Hydroxy | D deficiency has been | ng/mL | LABORATORY | | | | defined by the [place] | | | | | | ofMedicine [...] IOM | | | | | | ([place] of [employer]). | | | | | | 2009. Dietary reference | | | | | | intakes for calcium | | | | | | and D. [place]: | | | | | | The National [employer]ies | | | | | | Press.2. Hernan [place], | | | | | | [place], | | | | | | [...] | | | | | performed at [facility], | | | | | | [address], | | | | | | [facility] [address] | | | | + + + + + + + + | Specimen | + + | Blood | + + + + + + + | Performing | Address | City/State/Zipcode | Phone Number | | Organization | | | | + + + + + | [facility] | [address] | [place] [address] | [phone] | + + + + + Potassium (12/27/2019 12:08 AM PDT) + + + + + + | Component | Value | Ref Range | Performed | Pathologist | | | | | At | Signature | + + + + + + | K | 4.0Comment: Testing | 3.5 - 4.9 | [facility] | | | | performed at [facility];[address] | mmol/L | LABORATORY | | | | [address];[place] | | | | | | [address] | | | | + + + + + + + + | Specimen | + + | Blood | + + + + + + + | Performing | Address | City/State/Zipcode | Phone Number | | Organization | | | | + + + + + | [facility] | [address] | [place] [address] | [phone] | + + + + + Magnesium (12/27/2019 12:08 AM PDT) + + + + + + | Component | Value | Ref Range | Performed | Pathologist | | | | | At | Signature | + + + + + + | Magnesium | 2.2Comment: Testing | 1.7 - 2.4 mg/dL | [facility] | | | | performed at [facility];[address] | | LABORATORY | | | | [address];[place], [place] | | | | | | [address] | | | | + + + + + + + + | Specimen | + + | Blood | + + + + + + + | Performing | Address | City/State/Zipcode | Phone Number | | Organization | | | | + + + + + | [facility] | [address] | [place] [address] | [phone] | + + + + + ECG [...] | | POC | performed at [facility];[address] | | LABORATORY | | | | [address];[place] | | | | | | [address] | | | | + + + + + + + + | Specimen | + + | | + + + + + + + | Performing | Address | City/State/Zipcode | Phone Number | | Organization | | | | + + + + + | [facility] | [address] | [place] [address] | [phone] | + + + + + POC Glucose (12/26/2019 5:02 PM PDT) + + + + + + | Component | Value | Ref Range | Performed | Pathologist | | | | | At | Signature | + + + + + + | Glucose, | 154 (H)Comment: Testing | 65 - 99 mg/dL | [facility] | | | POC | performed at [facility];[address] | | LABORATORY | | | | [address];[place], [place] | | | | | | [address] | | | | + + + + + + + + | Specimen | + + | | + + + + + + + | Performing | Address | City/State/Zipcode | Phone Number | | Organization | | | | + + + + + | [facility] | [address] | [place] [address] | [phone] | + + + + + Complement [...] | | | COMPLEMENT | performed at [facility], | | LABORATORY | | | | [address], | | | | | | [facility] [address] | | | | + + + + + + + + | Specimen | + + | | + + + + + + + | Performing | Address | City/State/Zipcode | Phone Number | | Organization | | | | + + + + + | [facility] | [address] | [place] [address] | [phone] | + + + + + Complement C3 Ag (12/26/2019 12:33 PM PDT) + + + + + + | Component | Value | Ref Range | Performed | Pathologist | | | | | At | Signature | + + + + + + | C3 | 53 (L)Comment: Testing | 82 - 167 mg/dL | [facility] | | | COMPLEMENT | performed at [facility], | | LABORATORY | | | | [address], | | | | | | [facility] [address] | | | | + + + + + + + + | Specimen | + + | | + + + + + + + | Performing | Address | City/State/Zipcode | Phone Number | | Organization | | | | + + + + + | [facility] | [address] | [place] [address] | [phone] | + + + + + POC Glucose (12/26/2019 11:15 AM PDT) + + + + + + | Component | Value | Ref Range | Performed | Pathologist | | | | | At | Signature | + + + + + + | Glucose, | 161 (H)Comment: Testing | 65 - 99 mg/dL | [facility] | | | POC | performed at [facility];[address] | | LABORATORY | | | | [address];[place] | | | | | | [address] | | | | + + + + + + + + | Specimen | + + | | + + + + + + + | Performing | Address | City/State/Zipcode | Phone Number | | Organization | | | | + + + + + | [facility] | [address] | [place] [address] | [phone] | + + + + + POC [...] | | POC | performed at [facility];[address] | | LABORATORY | | | | [address];[place], [place] | | | | | | [address] | | | | + + + + + + + + | Specimen | + + | | + + + + + + + | Performing | Address | City/State/Zipcode | Phone Number | | Organization | | | | + + + + + | [facility] | [address] | [place] [address] | [phone] | + + + + + Parathyroid Hormone, Intraoperative (12/26/2019 4:25 AM PDT) + + + + + + | Component | Value | Ref Range | Performed | Pathologist | | | | | At | Signature | + + + + + + | PTH Intact | 167.0 (H)Comment: | 8.7 - 79.6 | [facility] | | | | Testing performed at | pg/mL | LABORATORY | | | | [facility];[address];[place] [address] | | | | + + + + + + + + | Specimen | + + | | + + + + + + + | Performing | Address | City/State/Zipcode | Phone Number | | Organization | | | | + + + + + | [facility] | [address] | [place] [address] | [phone] | + + + + + Renal [...] | | | | | performed at [facility], [address] | | | | | | [address], | | | | | | [place] [address] | | | | + + + + + + + + | Specimen | + + | Blood | + + + + + + + | Performing | Address | City/State/Zipcode | Phone Number | | Organization | | | | + + + + + | [facility] | [address] | [place] [address] | [phone] | + + + + + POC [...] | | POC | performed at [facility];[address] | | LABORATORY | | | | [address];[place], [place] | | | | | | [address] | | | | + + + + + + + + | Specimen | + + | | + + + + + + + | Performing | Address | City/State/Zipcode | Phone Number | | Organization | | | | + + + + + | [facility] | [address] | [place] [address] | [phone] | + + + + + POC [...] | | POC | performed at [facility];[address] | | LABORATORY | | | | [address];[place] | | | | | | [address] | | | | + + + + + + + + | Specimen | + + | | + + + + + + + | Performing | Address | City/State/Zipcode | Phone Number | | Organization | | | | + + + + + | [facility] | [address] | [place] [address] | [phone] | + + + + + ECHO [...] | | POC | performed at [facility];[address] | | LABORATORY | | | | [address];[place] | | | | | | [address] | | | | + + + + + + + + | Specimen | + + | | + + + + + + + | Performing | Address | City/State/Zipcode | Phone Number | | Organization | | | | + + + + + | [facility] | [address] | [place] [address] | [phone] | + + + + + POC Glucose (12/25/2019 7:56 AM PDT) + + + + + + | Component | Value | Ref Range | Performed | Pathologist | | | | | At | Signature | + + + + + + | Glucose, | 136 (H)Comment: Testing | 65 - 99 mg/dL | [facility] | | | POC | performed at [facility];[address] | | LABORATORY | | | | [address];[place] | | | | | | [address] | | | | + + + + + + + + | Specimen | + + | | + + + + + + + | Performing | Address | City/State/Zipcode | Phone Number | | Organization | | | | + + + + + | [facility] | [address] | [place] [address] | [phone] | + + + + + CK [...] | | | | performed at [facility] [place] | | [place] | | | | [facility];[place], [place] | | | | | | [address] | | | | + + + + + + + + | Specimen | + + | Blood | + + + + + + + | Performing | Address | City/State/Zipcode | Phone Number | | Organization | | | | + + + + + | [facility] | [address] | [place] [address] | [phone] | + + + + + Renal [...] | | | | | performed at [facility], [address] | | | | | | [facility], | | | | | | [place] [address] | | | | + + + + + + + + | Specimen | + + | Blood | + + + + + + + | Performing | Address | City/State/Zipcode | Phone Number | | Organization | | | | + + + + + | [facility] | [address] | [place] [address] | [phone] | + + + + + Cytoplasmic [...] | | | | | with both VT-3 and | | | | | | [...] | | | | | performed by [facility], | | | | | | [address], | | | | | | [facility] [address] | | | | + + + + + + + + | Specimen | + + | Blood | + + + + + + + | Performing | Address | City/State/Zipcode | Phone Number | | Organization | | | | + + + + + | [facility] | [address] | [place] [address] | [phone] | + + + + + Sedimentation Rate (12/25/2019 4:22 AM PDT) + + + + + + | Component | Value | Ref Range | Performed | Pathologist | | | | | At | Signature | + + + + + + | ESR | 6Comment: Testing | 0 - 20 mm/Hr | [facility] | | | | performed at [facility], [address] | | LABORATORY | | | | [address], | | | | | | [place] [address] | | | | + + + + + + + + | Specimen | + + | Blood | + + + + + + + | Performing | Address | City/State/Zipcode | Phone Number | | Organization | | | | + + + + + | [facility] | [address] | [place] [address] | [phone] | + + + + + Immunoglobulin, Free Light Chain (12/25/2019 4:22 AM PDT) + + + + + + | Component | Value | Ref Range | Performed | Pathologist | | | | | At | Signature | + + + + + + | [place] [facility] | 121.2 (H) | 3.3 - [...] + + + + + + | [place] | 1.25Comment: Testing | 0.26 - 1.65 | [facility] | | | a Free | performed at [facility] | | LABORATORY | | | Light Chain | [address] | | | | | Ratio | [place] [address] | | | | + + + + + + + + | Specimen | + + | Blood | + + + + + + + | Performing | Address | City/State/Zipcode | Phone Number | | Organization | | | | + + + + + | [facility] | [address] | [place] [address] | [phone] | + + + + + Glomerular Basement Membrane Ab, IgG (12/25/2019 4:22 AM PDT) + + + + + + | Component | Value | Ref Range | Performed | Pathologist | | | | | At | Signature | + + + + + + | Antiglomeru | 2Comment: | 0 - 20 units | [facility] | | | lar BM Ab, [...] | | | | | | [facility], [address] | | | | | | [place] | | | | | | [address] | | | | + + + + + + + + | Specimen | + + | Blood | + + + + + + + | Performing | Address | City/State/Zipcode | Phone Number | | Organization | | | | + + + + + | [facility] | [address] | [place] [address] | [phone] | + + + + + Hepatitis [...] Amplificationtest | | | | | | ([id number]).Testing | | | | | | performed at [facility], | | | | | | [address], | | | | | | [facility] [address] | | | | + + + + + + + + | Specimen | + + | Blood | + + + + + + + | Performing | Address | City/State/Zipcode | Phone Number | | Organization | | | | + + + + + | [facility] | [address] | [place] [address] | [phone] | + + + + + CK [...] | | | | performed at [facility] | | LABORATORY | | | | [facility];[place], [place] | | | | | | [address] | | | | + + + + + + + + | Specimen | + + | Blood | + + + + + + + | Performing | Address | City/State/Zipcode | Phone Number | | Organization | | | | + + + + + | [facility] | [address] | [place] [address] | [phone] | + + + + + Lactate [...] | | | | performed at [facility];[address] | | LABORATORY | | | | [address];[place] | | | | | | [address] | | | | + + + + + + + + | Specimen | + + | Blood | + + + + + + + | Performing | Address | City/State/Zipcode | Phone Number | | Organization | | | | + + + + + | [facility] | [address] | [place] [address] | [phone] | + + + + + Magnesium (12/25/2019 4:22 AM PDT) + + + + + + | Component | Value | Ref Range | Performed | Pathologist | | | | | At | Signature | + + + + + + | Magnesium | 2.5 (H)Comment: Testing | 1.7 - 2.4 mg/dL | [facility] | | | | performed at [facility], [address] | | LABORATORY | | | | [address], | | | | | | [place] [address] | | | | + + + + + + + + | Specimen | + + | Blood | + + + + + + + | Performing | Address | City/State/Zipcode | Phone Number | | Organization | | | | + + + + + | [facility] | [address] | [place] [address] | [phone] | + + + + + Protein, Urine, Random (12/25/2019 12:01 AM PDT) + + + + + + | Component | Value | Ref Range | Performed | Pathologist | | | | | At | Signature | + + + + + + | Protein, | 131Comment: NO NORMAL | mg/dL | [facility] | | | Urine | [facility] ESTABLISHEDTesting | | LABORATORY | | | | performed at [facility], [address] | | | | | [address] [facility], | | | | | | [place] [address] | | | | + + + + + + + + | Specimen | + + | | + + + + + + + | Performing | Address | City/State/Zipcode | Phone Number | | Organization | | | | + + + + + | [facility] | [address] | [place] [address] | [phone] | + + + + + Creatinine, Urine, Random (12/25/2019 12:01 AM PDT) + + + + + + | Component | Value | Ref Range | Performed | Pathologist | | | | | At | Signature | + + + + + + | Creatinine, | 139.0Comment: NO NORMAL | mg/dL | [facility] | | | random | [facility]ABLISHED[facility] | | LABORATORY | | | urine | performed at [facility], [address] | | | | | | [address], | | | | | | [place] [address] | | | | + + + + + + + + | Specimen | + + | | + + + + + + + | Performing | Address | City/State/Zipcode | Phone Number | | Organization | | | | + + + + + | [facility] | [address] | [place] [address] | [phone] | + + + + + Protein/Creatinine Ratio, Urine (12/25/2019 12:01 AM PDT) + + + + + + | Component | Value | Ref Range | Performed | Pathologist | | | | | At | Signature | + + + + + + | PRO/CREA | 0.942Comment: Testing | | [facility] | | | RATIO,URINE | performed at [facility], [address] | | LABORATORY | | | | [address], | | | | | | [place] [address] | | | | + + + + + + + + | Specimen | + + | Urine | + + + + + + + | Performing | Address | City/State/Zipcode | Phone Number | | Organization | | | | + + + + + | [facility] | [address] | [place] [address] | [phone] | + + + + + POC Glucose (12/24/2019 8:55 PM PDT) + + + + + + | Component | Value | Ref Range | Performed | Pathologist | | | | | At | Signature | + + + + + + | Glucose, | 149 (H)Comment: Testing | 65 - 99 mg/dL | [facility] | | | POC | performed at [facility];[address] | | LABORATORY | | | | [address];[place] | | | | | | [address] | | | | + + + + + + + + | Specimen | + + | | + + + + + + + | Performing | Address | City/State/Zipcode | Phone Number | | Organization | | | | + + + + + | [facility] | [address] | [place] [address] | [phone] | + + + + + POC Glucose (12/24/2019 5:14 PM PDT) + + + + + + | Component | Value | Ref Range | Performed | Pathologist | | | | | At | Signature | + + + + + + | Glucose, | 136 (H)Comment: Testing | 65 - 99 mg/dL | [facility] | | | POC | performed at [facility];[address] | | LABORATORY | | | | [address];[place], [place] | | | | | | [address] | | | | + + + + + + + + | Specimen | + + | | + + + + + + + | Performing | Address | City/State/Zipcode | Phone Number | | Organization | | | | + + + + + | [facility] | [address] | [place] [address] | [phone] | + + + + + ECG [...] | | Arterial, | performed at [facility];[address] | | LABORATORY | | | POC | [address];[place] | | | | | | [address] | | | | + + + + + + + + | Specimen | + + | | + + + + + + + | Performing | Address | City/State/Zipcode | Phone Number | | Organization | | | | + + + + + | [facility] | [address] | [place] [address] | [phone] | + + + + + Coronavirus (COVID-19) TIA (12/24/2019 1:10 PM PDT) + + + + + + | Component | Value | Ref Range | Performed | Pathologist | | | | | At | Signature | + + + + + + | SARS-CoV-2, | NEGATIVEComment: Testing | NEG | [facility] | | | YOU | performed at [facility];[address] | | LABORATORY | | | (COVID-19) | [address];[place], [place] | | | | | | [address] | | | | + + + + + + + + | Specimen | + + | Tissue - Entire | | nasopharynx (body | | structure) | + + + + + + + | Performing | Address | City/State/Zipcode | Phone Number | | Organization | | | | + + + + + | [facility] | [address] | [place] [address] | [phone] | + + + + + Culture, [...] | [facility] | | | Requests | [address] | | LABORATORY | | | | [address];[place] [address] | | | | + + + + + + | RESULT | NO GROWTH 6 DAYS | | [facility] | | | | | | LABORATORY | | + + + + + + | RESULT | Testing performed at | | [facility] | | | | [facility], [address] | | LABORATORY | | | | [place] | | | | | | [address]Qjaqltt: Testing | | | | | | performed at [facility], [address] | | | | | | [address] [place] | | | | | | [address] | | | | + + + + + + + + | Specimen | + + | Blood - Peripheral | | blood specimen | | (specimen) | + + + + + + + | Performing | Address | City/State/Zipcode | Phone Number | | Organization | | | | + + + + + | [facility] | [address] | [place] [address] | [phone] | + + + + + Culture, [...] | LABORATORY | | | | Blvd;[place] [address] | | | | + + + + + + | RESULT | NO GROWTH 6 DAYS | | [facility] | | | | | | LABORATORY | | + + + + + + | RESULT | Testing performed at | | [facility] | | | | [facility], [address] [facility] | | LABORATORY | | | | [place] | | | | | | [address]Naobisl: Testing | | | | | | performed at [facility], [address] | | | | | | [address] [place], [place] | | | | | | [address] | | | | + + + [...] [facility] | [address] | [place] [address] | [phone] | + + + + + Urinalysis [...] - 1.030 | [facility] | | | [place], | | | LABORATORY | | | [...] | | | Urine | performed at [facility], [address] | | LABORATORY | | | | [address], | | | | | | [place] [address] | | | | + + + [...] | + + + + + | [facility] | [address] | [place] [address] | [phone] | + + + + + Sodium, Urine, Random (12/24/2019 12:45 PM PDT) + + + + + + | Component | Value | Ref Range | Performed | Pathologist | | | | | At | Signature | + + + + + + | Sodium, | 52Comment: NO NORMAL | mmol/L | [facility] | | | Random | [facility] | | LABORATORY | | | urine | performed at [facility], [address] | | | | | | [address], | | | | | | [place] [address] | | | | + + [...] | + + + + + | [facility] | [address] | [place] [address] | [phone] | + + + + + Creatinine, [...] | | | urine | performed at [facility], [address] | | | | | | [address] [facility], | | | | | | [place] [address] | | | | + + + [...] | + + + + + | [facility] | [address] | [place] [address] | [phone] | + + + + + Lactic Acid (12/24/2019 12:27 PM PDT) + + + + + + | Component | Value | Ref Range | Performed | Pathologist | | | | | At | Signature | + + + + + + | Lactate, | 1.6Comment: Testing | 0.4 - 2.0 | [facility] | | | Serum | performed at [facility];[address] | mmol/L | LABORATORY | | | | [address];[place] | | | | | | [address] | | | | + + + + + + + + | Specimen | + + | Blood | + + + + + + + | Performing | Address | City/State/Zipcode | Phone Number | | Organization | | | | + + + + + | [facility] | [address] | [place] [address] | [phone] | + + + + + Procalcitonin [...] | | | | | at [facility];[address] | | | | | | [facility];[place] [address] | | | | + + + + + + + + | Specimen | + + | Blood | + + + + + + + | Performing | Address | City/State/Zipcode | Phone Number | | Organization | | | | + + + + + | [facility] | [address] | [place] [address] | [phone] | + + + + + POC Glucose (12/24/2019 12:25 PM PDT) + + + + + + | Component | Value | Ref Range | Performed | Pathologist | | | | | At | Signature | + + + + + + | Glucose, | 143 (H)Comment: Testing | 65 - 99 mg/dL | [facility] | | | POC | performed at [facility];[address] | | LABORATORY | | | | [address];[place] | | | | | | [address] | | | | + + + + + + + + | Specimen | + + | | + + + + + + + | Performing | Address | City/State/Zipcode | Phone Number | | Organization | | | | + + + + + | [facility] | [address] | [place] [address] | [phone] | + + + + + POC [...] | | POC | performed at [facility];[address] | | LABORATORY | | | | [address];[place] | | | | | | [address] | | | | + + + + + + + + | Specimen | + + | | + + + + + + + | Performing | Address | City/State/Zipcode | Phone Number | | Organization | | | | + + + + + | [facility] | [address] | [place] [address] | [phone] | + + + + + CBC [...] | | | | performed at [facility];[address] | | | | | | [address];[place] | | | | | | [address] | | | | + + + + + + + + | Specimen | + + | Blood | + + + + + + + | Performing | Address | City/State/Zipcode | Phone Number | | Organization | | | | + + + + + | [facility] | [address] | [place] [address] | [phone] | + + + + + Basic [...] | | | | | performed at [facility], [address] | | | | | | [address] [facility], | | | | | | [place] [address] | | | | + + + + + + + + | Specimen | + + | Blood | + + + + + + + | Performing | Address | City/State/Zipcode | Phone Number | | Organization | | | | + + + + + | [facility] | [address] | [place] [address] | [phone] | + + + + + POC [...] | | POC | performed at [facility];[address] | | LABORATORY | | | | [address];[place] | | | | | | [address] | | | | + + + + + + + + | Specimen | + + | | + + + + + + + | Performing | Address | City/State/Zipcode | Phone Number | | Organization | | | | + + + + + | [facility] | [address] | [place] [address] | [phone] | + + + + + POC Glucose (12/23/2019 4:35 PM PDT) + + + + + + | Component | Value | Ref Range | Performed | Pathologist | | | | | At | Signature | + + + + + + | Glucose, | 129 (H)Comment: Testing | 65 - 99 mg/dL | [facility] | | | POC | performed at [facility];[address] | | LABORATORY | | | | [address];[place] | | | | | | [address] | | | | + + + + + + + + | Specimen | + + | | + + + + + + + | Performing | Address | City/State/Zipcode | Phone Number | | Organization | | | | + + + + + | [facility] | [address] | [place] [address] | [phone] | + + + + + POC Glucose (12/23/2019 2:05 PM PDT) + + + + + + | Component | Value | Ref Range | Performed | Pathologist | | | | | At | Signature | + + + + + + | Glucose, | 158 (H)Comment: Testing | 65 - 99 mg/dL | [facility] | | | POC | performed at [facility];[address] | | LABORATORY | | | | [address];[place] | | | | | | [address] | | | | + + + + + + + + | Specimen | + + | | + + + + + + + | Performing | Address | City/State/Zipcode | Phone Number | | Organization | | | | + + + + + | [facility] | [address] | [place] [address] | [phone] | + + + + + POC [...] | | POC | performed at [facility];[address] | | LABORATORY | | | | [address];[place], [place] | | | | | | [address] | | | | + + + + + + + + | Specimen | + + | | + + + + + + + | Performing | Address | City/State/Zipcode | Phone Number | | Organization | | | | + + + + + | [facility] | [address] | [place] [address] | [phone] | + + + + + Basic [...] 22 (L)Comment: GFR <60: | >60 | [facility] | | | GFR | CHRONIC [...] | | | | | | MDRD IDMA traceable | | | | | | equation.Testing | | | | | | performed at [facility];[address] | | | | | | [facility];[place], [place] | | | | | | [address] | | | | + + + + + + + + | Specimen | + + | Blood | + + + + + + + | Performing | Address | City/State/Zipcode | Phone Number | | Organization | | | | + + + + + | [facility] | [address] | [place] [address] | [phone] | + + + + + Phosphorus (12/23/2019 4:04 AM PDT) + + + + + + | Component | Value | Ref Range | Performed | Pathologist | | | | | At | Signature | + + + + + + | Phosphorus | 4.6Comment: Testing | 2.3 - 4.8 mg/dL | [facility] | | | | performed at [facility];[address] | | LABORATORY | | | | [address];[place] | | | | | | [address] | | | | + + + + + + + + | Specimen | + + | Blood | + + + + + + + | Performing | Address | City/State/Zipcode | Phone Number | | Organization | | | | + + + + + | [facility] | [address] | [place] [address] | [phone] | + + + + + Magnesium (12/23/2019 4:04 AM PDT) + + + + + + | Component | Value | Ref Range | Performed | Pathologist | | | | | At | Signature | + + + + + + | Magnesium | 2.1Comment: Testing | 1.7 - 2.4 mg/dL | [facility] | | | | performed at [facility];[address] | | LABORATORY | | | | [address];[place] | | | | | | [address] | | | | + + + + + + + + | Specimen | + + | Blood | + + + + + + + | Performing | Address | City/State/Zipcode | Phone Number | | Organization | | | | + + + + + | [facility] | [address] | [place] [address] | [phone] | + + + + + CBC [...] | | | | performed at [facility];[address] | | | | | | [address];[place], [place] | | | | | | [address] | | | | + + + + + + + + | Specimen | + + | Blood | + + + + + + + | Performing | Address | City/State/Zipcode | Phone Number | | Organization | | | | + + + + + | [facility] | [address] | [place] [address] | [phone] | + + + + + Hemoglobin (12/22/2019 9:37 PM PDT) + + + + + + | Component | Value | Ref Range | Performed | Pathologist | | | | | At | Signature | + + + + + + | Hemoglobin | 9.1 (L)Comment: Testing | 13.2 - 17.0 | [facility] | | | | performed at [facility];[address] | g/dL | LABORATORY | | | | [address];[place] | | | | | | [address] | | | | + + + + + + + + | Specimen | + + | Blood | + + + + + + + | Performing | Address | City/State/Zipcode | Phone Number | | Organization | | | | + + + + + | [facility] | [address] | [place] [address] | [phone] | + + + + + Hematocrit (12/22/2019 9:37 PM PDT) + + + + + + | Component | Value | Ref Range | Performed | Pathologist | | | | | At | Signature | + + + + + + | Hematocrit | 27.4 (L)Comment: Testing | 39.0 - 50.0 % | [facility] | | | | performed at [facility] | | LABORATORY | | | | [address];[place], [place] | | | | | | [address] | | | | + + + + + + + + | Specimen | + + | Blood | + + + + + + + | Performing | Address | City/State/Zipcode | Phone Number | | Organization | | | | + + + + + | [facility] | [address] | [place] [address] | [phone] | + + + + + POC Glucose (12/22/2019 8:30 PM PDT) + + + + + + | Component | Value | Ref Range | Performed | Pathologist | | | | | At | Signature | + + + + + + | Glucose, | 129 (H)Comment: Testing | 65 - 99 mg/dL | [facility] | | | POC | performed at [facility];[address] | | LABORATORY | | | | [address];[place] | | | | | | [address] | | | | + + + + + + + + | Specimen | + + | | + + + + + + + | Performing | Address | City/State/Zipcode | Phone Number | | Organization | | | | + + + + + | [facility] | [address] | [place] [address] | [phone] | + + + + + POC Glucose (12/22/2019 5:32 PM PDT) + + + + + + | Component | Value | Ref Range | Performed | Pathologist | | | | | At | Signature | + + + + + + | Glucose, | 153 (H)Comment: Testing | 65 - 99 mg/dL | [facility] | | | POC | performed at [facility];[address] | | LABORATORY | | | | [address];[place], [place] | | | | | | [address] | | | | + + + + + + + + | Specimen | + + | | + + + + + + + | Performing | Address | City/State/Zipcode | Phone Number | | Organization | | | | + + + + + | [facility] | [address] | [place] [address] | [phone] | + + + + + Red [...] | | LABORATORY | | | | [address];[place] [address] | | | | + + + + + + + + | Specimen | + + | | + + + + + + + | Performing | Address | City/State/Zipcode | Phone Number | | Organization | | | | + + + + + | [facility] | [address] | [place] [address] | [phone] | + + + + + POC [...] | | POC | performed at [facility];[address] | | LABORATORY | | | | [address];[place], [place] | | | | | | [address] | | | | + + + + + + + + | Specimen | + + | | + + + + + + + | Performing | Address | City/State/Zipcode | Phone Number | | Organization | | | | + + + + + | [facility] | [address] | [place] [address] | [phone] | + + + + + [place] [...] | | POC | performed at [facility];[address] | g/dL | LABORATORY | | | | [address];[place], [place] | | | | | | [address] | | | | + + + + + + + + | Specimen | + + | | + + + + + + + | Performing | Address | City/State/Zipcode | Phone Number | | Organization | | | | + + + + + | [facility] | [address] | [place] [address] | [phone] | + + + + + POC ISTAT, CG8, Arterial (12/22/2019 9:23 AM PDT) + + + + + + | Component | Value | Ref Range | Performed | Pathologist | | | | | At | Signature | + + + + + + | pH, | 7.314 (L) | 7.350 - 7.450 | [facility] | | | Arterial, | | [...] | | POC | performed at [facility];[address] | g/dL | LABORATORY | | | | [address];[place] | | | | | | [address] | | | | + + + + + + + + | Specimen | + + | | + + + + + + + | Performing | Address | City/State/Zipcode | Phone Number | | Organization | | | | + + + + + | [facility] | [address] | [place] [address] | [phone] | + + + + + POC [...] | | POC | performed at [facility];[address] | g/dL | LABORATORY | | | | [address];[place], [place] | | | | | | [address] | | | | + + + + + + + + | Specimen | + + | | + + + + + + + | Performing | Address | City/State/Zipcode | Phone Number | | Organization | | | | + + + + + | [facility] | [address] | [place] [address] | [phone] | + + + + + POC MORRIS CG8, Venous (12/22/2019 8:03 AM PDT) + [...] (L) | 40.0 - 50.0 % | [facility] | | | POC | | | LABORATORY | | + + + + + + | Hemoglobin, | 9.2 (L)Comment: Testing | 13.7 - 16.7 | [facility] | | | POC | performed at [facility];[address] | g/dL | LABORATORY | | | | [address];[place] | | | | | | [address] | | | | + + + + + + + + | Specimen | + + | | + + + + + + + | Performing | Address | City/State/Zipcode | Phone Number | | Organization | | | | + + + + + | [facility] | [address] | [place] [address] | [phone] | + + + + + Type [...] + + + | BB BAND | [id number] | | [facility] | | | | | | LABORATORY | | + + + + + + | UNIT # | [id number] | | [facility] | | | | [...] | | RESULT | performed at [facility] [place] | | LABORATORY | | | | [address];[place], [place] | | | | | | [address] | | | | + + + + + + | UNIT # | [id number] | | [facility] | | | | [...] | + + + + + | [facility] | [address] | [place] [address] | [phone] | + + + + + POC [...] | | POC | performed at [facility] [place] | | LABORATORY | | | [address];[place] | | | | | | [address] | | | | + + + + + + + + | Specimen | + + | | + + + + + + + | Performing | Address | City/State/Zipcode | Phone Number | | Organization | | | | + + + + + | [facility] | [address] | [place] [address] | [phone] | + + + + + Tabbyime [...] | | | | performed at [facility] [place] | | | | | | [address];[place] | | | | | | [address] | | | | + + + + + + + + | Specimen | + + | Blood | + + + + + + + | Performing | Address | City/State/Zipcode | Phone Number | | Organization | | | | + + + + + | [facility] | [address] | [place] [address] | [phone] | + + + + + CBC [...] | | | Absolute | performed at [address], [address] | LABORATORY | | | | [address], | | | | | | [place] [address] | | | | + + + + + + + + | Specimen | + + | Blood | + + + + + + + | Performing | Address | City/State/Zipcode | Phone Number | | Organization | | | | + + + + + | [facility] | [address] | [place] [address] | [phone] | + + + + + Magnesium (12/22/2019 5:26 AM PDT) + + + + + + | Component | Value | Ref Range | Performed | Pathologist | | | | | At | Signature | + + + + + + | Magnesium | 2.6 (H)Comment: Testing | 1.7 - 2.4 mg/dL | [facility] | | | | performed at [facility], [address] | | LABORATORY | | | | [address], | | | | | | [place] [address] | | | | + + + + + + + + | Specimen | + + | Blood | + + + + + + + | Performing | Address | City/State/Zipcode | Phone Number | | Organization | | | | + + + + + | [facility] | [address] | [place] [address] | [phone] | + + + + + Basic [...] 22 (L)Comment: GFR <60: | >60 | [facility] | | | GFR | CHRONIC [...] | | | | | MDRD [facility] traceable | | | | | | equation.Testing | | | | | | performed at [facility], [address] | | | | | [facility], | | | | | | [place] [address] | | | | + + + + + + + + | Specimen | + + | Blood | + + + + + + + | Performing | Address | City/State/Zipcode | Phone Number | | Organization | | | | + + + + + | [facility] | [address] | [place] [address] | [phone] | + + + + + POC [...] | | POC | [place] [facility] [place] | | [facility] | | | | [address];[place] | | | | | | [address] | | | | + + + + + + + + | Specimen | + + | | + + + + + + + | Performing | Address | City/State/Zipcode | Phone Number | | Organization | | | | + + + + + | [facility] | [address] | [place] [address] | [phone] | + + + + + POC [...] | | POC | performed [place] [facility] [place] | | [facility] | | | | Adam Mcc[address];[place], [place] | | | | | | [address] | | | | + + + + + + + + | Specimen | + + | | + + + + + + + | Performing | Address | City/State/Zipcode | Phone Number | | Organization | | | | + + + + + | [facility] | [address] [facility] | [place] [address] | [phone] | + + + + + documented [...] | | | | Starting [facility] 12/26/19 at 1637 | | | [...] | | | | | | | [phone] Use NIGHT DOSE for | | | | | | | doses scheduled: HS, | | | | | | | Nighttime [id number] If the BG is | | | [...] | +---+---+ +---+ | | +---+ + +---------+ +------+-------+------+ | Medication Order | MAR | Action | Dose | Rate | Site | | | Action | Date | | | | + +---------+ +------+-------+------+ | albumin 25% IVPB 25 g 25 [...] | | | | | + +---------+ +------+-------+------+ +---+---+ | | | +---+---+ + +---------+ [...] PDT | | | | +---------+ +------+-------+---+ +---+---+ | | | +---+---+ + +-------+ +--------+---+---+ | apixaban (ELIQUIS) tablet [...] +-----+-------+---+ +---+---+ | | | +---+---+ + +-------+ +------+---+---+ | EPINEPHrine 0.1 mg/mL [...] | | | | | | longer, dyvexs-hti-cubof use of | | | | | [...] | | | | | ineffective use [place] 10/325 if | | | | | [...] +---------+---+---+ +---+---+ | | | +---+---+ + +---------+ [...] | | +---+---+ + +-------+ +-------+---+---+ | oxyCODONE (ROXICODONE) tablet [...] | | | | | Minutes, ONCE, [facility] 12/26/19 at | | | | | | | 0815, For 1 dose | | | | | | + +-------+ +---------+-------+---+ +---+---+ | | | +---+---+ + +---------+ +---+ +---+ | sodium chloride 0.45% (12 NS) | New Bag | 12/21/19 | [...]
[~2020-01-01 11:38] MED LIST changes: -COREG25 MG PO; +COREG3.125 MG PO; -VITAMIN C250 MG PO; +VITAMIN C500 M1 PO; +ZESTRIL5 MG; +ZESTRIL5 MG PO
[2020-01-02] MEDS ORDERED: HUMALOG100 UNIT/2 SUB-Q (16:39)
[2020-01-02] MEDS ORDERED: PROAIR RESPICL90 MCG INH (16:48)
[2020-01-02] MEDS ORDERED: SYMBICORT 16010.2 GM INH (16:50)
[2020-01-02] MEDS ORDERED: PROTONIX40 MG PO (16:51)
[2020-01-02] MEDS ORDERED: CARAFATE1 GM PO (16:52)
[2020-01-02] MEDS ORDERED: MECLIZINE HCL25 MG PO (16:53)
[2020-01-22] MEDS ORDERED: POTASSIUM CHLO10 ME1 PO (10:57)
[2020-01-22] MEDS ORDERED: ELIQUIS2.5 MG PO (10:57)
[2020-01-22] MEDS ORDERED: TORSEMIDE20 MG PO (10:59)
[2020-01-22] MEDS ORDERED: GLIPIZIDE ER2.5 MG PO (11:00)
[2020-01-22] MEDS ORDERED: MELATONIN3 MG PO (11:01)
[2020-01-22] MEDS ORDERED: MILK OF MA400 MG/5 M PO (11:02)
[2020-01-22] MEDS ORDERED: POLYETHYLENE GL17 GM PO (11:03)
[2020-01-22] MEDS ORDERED: DOK PLUS TABLE1 EACH PO (11:03)
== END 2020-01-22 14:05 | disposition home or self-care (01) | DRG 559 ==
LOC: MS 11:38
PROVIDERS: ADMIT Internal Medicine
DX: S72.141D Displaced intertrochanteric fracture of right femur, subsequent encounter for closed fracture with routine healing (principal); K26.0 Acute duodenal ulcer with hemorrhage; I50.32 Chronic diastolic (congestive) heart failure; I48.20 Chronic atrial fibrillation, unspecified; I69.351 Hemiplegia and hemiparesis following cerebral infarction affecting right dominant side; R26.2 Difficulty in walking, not elsewhere classified; I27.20 Pulmonary hypertension, unspecified; I07.1 Rheumatic tricuspid insufficiency; E79.0 Hyperuricemia without signs of inflammatory arthritis and tophaceous disease; J45.909 Unspecified asthma, uncomplicated; I12.9 Hypertensive chronic kidney disease with stage 1 through stage 4 chronic kidney disease, or unspecified chronic kidney disease; E11.22 Type 2 diabetes mellitus with diabetic chronic kidney disease; N18.3 Chronic kidney disease, stage 3 (moderate); D63.1 Anemia in chronic kidney disease; E78.5 Hyperlipidemia, unspecified; K70.30 Alcoholic cirrhosis of liver without ascites; Z88.5 Allergy status to narcotic agent; Z98.890 Other specified postprocedural states; Z95.0 Presence of cardiac pacemaker; Z87.891 Personal history of nicotine dependence; Z79.84 Long term (current) use of oral hypoglycemic drugs; Z79.02 Long term (current) use of antithrombotics/antiplatelets; Z79.899 Other long term (current) drug therapy; Z79.51 Long term (current) use of inhaled steroids
CPT/HCPCS: 36415; 80048; 80069; 81001; 83036; 85025; 94640; 94667; 94668; 94760; 97110; 97116; 97162; 97165; 97530; 97535; J1650; J1815

== ENCOUNTER 2020-01-27 14:44 | Emergency (ER) | payer MEDICARE ==
[~2020-01-27] VITALS: Ht 165.1 cm; Wt 71.5 kg
--- OUTSIDE RECORDS SUMMARY | ~2020-01-27 | XMS | Encounter Summary ---
Demographics + + + | Address | [address] | | | [place] [address] | + + + | Home Phone | | + + + | Preferred Language | Unknown | + + + | Marital Status | | + + + | Hinduism Affiliation | 1001 | + + + | Race | Unknown | + + + | Ethnic Group | Unknown | + + + Author + + + | Author | [facility] | | | and [place] | + + + | Organization | [facility] | | | and [place] | + + + | Address | Unknown | + + + | Phone | Unavailable | + + + Support + + + + + | Name | Relationship | Address | Phone | + + + + + | Marissaian Mcconnell | ECON | [address] | | | | | [place] | | | | | [phone] | | + + + + + | Deanna Lawson | ECON | Unknown | | + + + + + Care Team Providers + +------+ + | Care Dye Room Helper Name | Role | Phone | + +------+ + PCP | Unavailable | + +------+ + Encounter Details +--------+ + + + + | Date | Type | Department | Care Team | Description | +--------+ + + + + | 07/25/ | Hospital | [facility] | Yoli Harding MD | Dyspnea, unspecified | | 2017 - | Encounter | [facility] | [address] | type; Fatigue, | | | | CARE FLO[address] | [place] [address] | unspecified type; | | 07/29/ | | [address] | [phone] | Altered mental | | 2016 | | [place], [place] | | status, unspecified | | | | [address] | | altered mental | | | | [phone] | | status type; | | | | | | Pulmonary | | | | | | hypertension; Acute | | | | | | on chronic diastolic | | | | | | congestive heart | | | | | | failure (HCC); | | | | | | Presence of cardiac | | | | | | pacemaker; Essential | | | | | | hypertension | +--------+ + + + + Social History + +-------+ +--------+------+ | Tobacco Use | Types | Packs/Day | Years | Date | | | | | Used | | + +-------+ +--------+------+ | Never Assessed | | | | | + +-------+ +--------+------+ + + + | Sex Assigned at | Date Recorded | | | | + + + | Male | | + + + + + + + | Job Start Date | Occupation | Industry | + + + + | Not on file | Not on file | Not on file | + + + + + + + + | Travel History | Travel Start | Travel End | + + + + + + | No recent travel history available. | + + documented as of this encounter Last Filed Vital Signs + + + + + | Vital Sign | Reading | Time Taken | Comments | + + + + + | Blood Pressure | 139/70 | 07/29/2017 11:21 AM | | | | | PST | | + + + + + | Pulse | 64 | 07/29/2017 11:21 AM | | | | | PST | | + + + + + | Temperature | 36.2 C (97.2 F) | 07/29/2017 11:21 AM | | | | | PST | | + + + + + | Respiratory Rate | 19 | 07/29/2017 11:21 AM | | | | | PST | | + + + + + | Oxygen Saturation | - | - | | + + + + + | Inhaled Oxygen | - | - | | | Concentration | | | | + + + + + | Weight | 82.9 kg (182 lb 11.2 | 07/29/2017 11:21 AM | | | | oz) | PST | | + + + + + | Height | 165.1 cm (5' 5") | 07/29/2017 11:21 AM | | | | | PST | | + + + + + | Body Mass Index | 30.4 | 07/29/2017 11:21 AM | | | | | PST | | + + + + + documented in this encounter Discharge Summaries Gutierrez Lopez MD - 07/29/2017 10:03 AM PSTFormatting of this note might be different fr om the original. Discharge Summaries by Gutierrez Lopez MD at 07/29/17 1003 Author: Gutierrez Lopez MD Service: Hospitalist Author Type: Physician Filed: 07/29/17 1013 Date of Service: 07/29/17 1003 Status: Signed Operations Inspector: Gutierrez Lopez MD (Physician) [facility] Service: Hospitalist Discharge Summary Date of Admission: 07/25/2017 Date of Discharge: 07/29/2017 Discharge Provider: Gutierrez Lopez MD Treatment Team: Admitting Provider: Yoli Harding MD Discharge Diagnoses: Principal Problem (Resolved): Acute on chronic diastolic congestive heart failure (HCC) Active Problems: Atrial fibrillation, chronic Cardiac pacemaker in situ HTN (hypertension) HLD (hyperlipidemia) Type 2 diabetes mellitus without complication (HCC) Anemia Resolved Problems: Acute kidney injury (HCC) BRIEF HISTORY OF PRESENTATION: Briefly 87-year-old male with significant past medical history of chronic atrial fibrillat ion on Coumadin, pacemaker, prior CVA, type II diabetes mellitus, recent GI bleed 06/2017 wi th history of diverticulitis who presented on 07/24 forshortness of breath and dark stools. HOSPITAL COURSE: The patient was admitted to regular medical floors. Regards to shortness of breath patien t had 2-D echo which demonstrated EF greater than 70 percent with dilated IVC non-collapsibl e with sniff consistent with elevated CVP. The patient was started on Lasix IV bid with flu id responsiveness and attempted targeted urinary output of 2-3 L daily, with fluid and salt restriction. The patient was continued on home beta gala and was eventually restarted on home fosinopril after creatinine demonstrated improvement. AK I was secondary to prerenal from volume overload secondary to acute on chronic exacerbation of heart failure with preser jaleesa ejection fraction. In regards to dark stools, the patient had 2 stool cultures which we re negative. Ferritin was found to be low. Patient given Iron therapy. Negative orthostat ics. Hemodynamically stable. Discussed with patient and family (spouse and daughter) who genia luquees with plan. Patient discharged on oral iron therapy. The patient was found to be clin ically, hemodynamically and from a laboratory perspective stable for discharge and outpatien t management with congestive heart failure clinic, arranged by case hardener and outpatient sharon metzger. Past Medical History Diagnosis Date Atrial fibrillation (HCC) chronic CVA (cerebral infarction) hx. of Diabetes mellitus (HCC) GERD (gastroesophageal reflux disease) GI bleed Hypertension Joint pain Past Surgical History Procedure Laterality Date CATARACT EXTRACTION bilateral cholecystectomy 2015 CHOLECYSTECTOMY 10/2015 COLONOSCOPY EYE SURGERY eyelid -lt. eye lift PACEMAKER INSERTION TONSILLECTOMY Allergies Allergen Reactions Codeine Nausea and Vomiting and Vertigo Morphine And Related Nausea Only Slow to recover Prescriptions Prior to Admission Medication Sig Dispense Refill Last Dose amLODIPine (NORVASC) 10 MG tablet Take 10 mg by mouth daily. 07/25/2017@0700 ascorbic acid (VITAMIN C) 500 MG tablet Take 500 mg by mouth daily. 07/24/2017@0700 Ejcyboz-Evgagbexl-Atptalg D 600-40-500 MG-MG-UNIT TB24 Take 1,200 mg by mouth daily. 07/25/2017@0700 glipiZIDE (GLUCOTROL) 5 MG tablet Take 2.5 mg by mouth every morning. 07/25/2017@0700 lisinopril (ZESTRIL) 20 MG tablet Take 20 mg by mouth 2 (two) times daily. 07/25/2017@ 0700 metFORMIN (GLUCOPHAGE) 500 MG tablet Take 500 mg by mouth 3 (three) times daily. 07/25@0700 metoprolol (LOPRESSOR) 50 MG tablet Take 25 mg by mouth 2 (two) times daily. 7@0700 Multiple Vitamins-Minerals ([facility] MACULAR HEALTH PO) Take 1 tablet by mouth daily. 2016@0700 [place] 3 1000 MG CAPS Take 1 capsule by mouth daily. 07/25/2017@699 omeprazole (PRILOSEC) 20 MG capsule Take 20 mg by mouth every morning before breakfast. 07/25/2017@699 potassium chloride (K-DUR) 10 MEQ tablet Take 20 mEq by mouth 2 (two) times daily with meals. 07/25/2017@699 pravastatin (PRAVACHOL) 80 MG tablet Take 40 mg by mouth nightly. 07/24/2017@1999 terazosin (HYTRIN) 10 MG capsule Take 10 mg by mouth nightly. 07/24/2017@1999 warfarin (COUMADIN) 5 MG tablet Take 2.5-5 mg by mouth See Admin Instructions. Taking n ightly. 2.5 mg on Monday and Monday. 5 mg on all other days 07/24/2017@1800 DISCHARGE EXAM Vital Signs: BP 142/65 (BP Location: Left upper arm) | Pulse 62 | Temp 98.3 F (36.8 C) (Oral) | R elian 18 | Ht 1.651 m (5' 5") | Wt 82.9 kg (182 lb 11.2 oz) | SpO2 94% | BMI 30.40 kg/m Physical Exam Constitutional: Awakeand alert. Sitting in chair. No apparent acute distress. HEENT: Neck supple. Cardiovascular:irregularrhythm.Regular rate. Noappreciable murmursmurmur hear d.No JVD. Trace peripheral edema bilaterally. Pulmonary/Chest: No respiratory distress. Course breath sounds at bases. Good air entry bilaterally. No accessory muscle usage. Abdominal:Soft. Bowel sounds are normal. Exhibits no distension. There is no tenderness . There is no rebound and no guarding. Extremeties/Musculoskeletal:Normal range of motionfor patient. exhibits no tenderness. Neurological: Alert and oriented to person, place, and time.No cranial nerve defici tappreciated. Exhibits normal muscle tone. Coordination normal. Skin: Skin is warm and dry. No rash noted. No erythema. No pallor. Psychiatric: Appropriate mood. DATA Labs, medications, allergies and other treatment team notes reviewed. PLAN 1. Activity: As tolerated 2. Diet: Cardiac, no sodium, diabetic 1800-calorie ADA 3. Follow-up: As indicated below and as discussed by case hardener's at Bedside. Disposition: Home Condition: Stable Code Status: Full Code Discharge Instructions Diet Cardiac Diet Low Sodium Activity as Tolerated Follow up: ENEDINA Dickerson [address] [facility] [id number] Go on 07/31/2017 Hospital Follow Up Guided Patient Services Guided Patient Services GPS Systems Coordinator- JIAN [place] [phone] Mon-Mon 7:30 AM 4:00 PM Call for any questions or concerns after your discharge home, or for help making follow up appointments. Charlee Chauhan ENEDINA Oswald [address] [place] [id number] On 08/08/2017 Post-Hopsital discharge Follow-up. Medication List START taking these medications ferrous sulfate (65 FE) 325 (65 FE) MG tablet QTY: 90 tablet Refills: 3 Take 1 tablet by mouth 3 (three) times daily with meals for 120 days. CHANGE how you take these medications furosemide 40 MG tablet QTY: 60 tablet Refills: 1 Commonly known as: LASIX Take 1 tablet by mouth Two times daily. What changed: medication strength how much to take when to take this CONTINUE taking these medications amLODIPine 10 MG tablet Refills: 0 Commonly known as: NORVASC ascorbic acid 500 MG tablet Refills: 0 Commonly known as: VITAMIN C Kbpufyb-Mwnysjvvj-Sgpfqcp D 600-40-500 MG-MG-UNIT Tb24 Refills: 0 glipiZIDE 5 MG tablet Refills: 0 Commonly known as: GLUCOTROL lisinopril 20 MG tablet Refills: 0 Commonly known as: ZESTRIL metFORMIN 500 MG tablet Refills: 0 Commonly known as: GLUCOPHAGE metoprolol 50 MG tablet Refills: 0 Commonly known as: LOPRESSOR [facility] HEALTH PO Refills: 0 omeprazole 20 MG capsule Refills: 0 Commonly known as: PRILOSEC potassium chloride 10 MEQ tablet Refills: 0 Commonly known as: K-DUR pravastatin 80 MG tablet Refills: 0 Commonly known as: PRAVACHOL terazosin 10 MG capsule Refills: 0 Commonly known as: HYTRIN warfarin 5 MG tablet Refills: 0 Commonly known as: COUMADIN You might also be taking other medications not listed above. If you have questions about an y of your other medications, talk to the person who prescribed them or your Primary Care Pro vider. Where to Get Your Medications You can get these medications from any pharmacy Bring a paper prescription for each of these medications ferrous sulfate (65 FE) 325 (65 FE) MG tablet furosemide 40 MG tablet Discharge took 45 minutes, to include final examination, discussion of admission, and prepa ration of prescriptions, instructions for on-going care, follow-up and documentation of disc harge summary. Gutierrez Lopez MD 07/29/2017 documented in this encounter Medications at Time of Discharge + + + +---------+ + + | Medication | Sig | Dispensed | Refills | Start | End Date | | | | | | Date | | + + + +---------+ + + | ascorbic acid | Take 500 mg by mouth | | 0 | 08/26/19 | | | (VITAMIN C) 500 MG | daily. | | | 16 | | | tablet | | | | | | + + + +---------+ + + | pravastatin | Take 40 mg by mouth | | 0 | 08/26/19 | | | (PRAVACHOL) 80 MG | nightly. | | | 16 | | | tablet | | | | | | + + + +---------+ + + | terazosin (HYTRIN) | Take 10 mg by mouth | | 0 | 04/24/20 | | | 10 MG capsule | daily with dinner. | | | 14 | | + + + +---------+ + + | lisinopril | Take 20 mg by mouth | | 0 | 04/24/20 | | | (PRINIVIL, ZESTRIL) | 2 (two) times daily. | | | 14 | 0 | | 20 mg tablet | | | | | | + + + +---------+ + + | metFORMIN | Take 500 mg by mouth | | 0 | 04/24/20 | | | (GLUCOPHAGE) 500 mg | 3 (three) times | | | 14 | 0 | | tablet | daily. | | | | | + + + +---------+ + + documented as of this encounter Progress Notes Conversion Transaction, Provider Unknown - 07/29/2017 1:45 PM PSTFormatting of this note m ight be different from the original. Nurse Progress Note by Valeria Martinez RN at 07/29/17 1345 Author: Valeria Martinez RN Service: (none) Author Type: Registered Nurse Filed: 07/29/17 3230 Date of Service: 07/29/175 Status: Signed Operations Inspector: Valeria Martinez RN (Registered Nurse) Patient discharged home via private vehicle with family. Heart failure education completed, all discharge instructions discussed. Patient has heart failure education packet and paper prescriptions in possession. All questions answered, all patient belongings with family. Pat ient wheeled out with MANAGER GYN, all vital signs stable upon discharge. VALERIA MARTINEZ RN onver jose a Transaction, Provider Unknown - 07/28/2017 3:18 PM PST Progress Notes by Carina Quintero CMA at 07/28/17 1518 Author: Carina Quintero CMA Service: (none) Author Type: Hand Button Splitter Filed: 07/28/17 1519 Date of Service: 07/28/171517 Status: Signed Operations Inspector: Carina Quintero CMA (Hand Button Splitter) GPS- Patient enrolled. Scheduled to see Charlee Chauhan on 08/08 and PCP on 07/31 onver jose a Transaction, Provider Unknown - 07/28/2017 2:43 PM PST Case Management by Yousuf Mcfadden RN at 07/28/17 9714 Author: Yousuf Mcfadden RN Service: (none) Author Type: Registered Nurse Filed: 07/28/17 1600 Date of Service: 07/28/17 220 Status: Signed Operations Inspector: Yousuf W Hair, RN (Registered Nurse) I met with patient in rounds, he is enrolled in the CHF program through [facility] a nd has follow up schedule with his cardiologists. Gutierrez Momin MD - 07/28/2017 6:56 AM PST Progress Notes by Gutierrez Lopez MD at 07/28/17 0656 Author: Gutierrez Lopez MD Service: Hospitalist Author Type: Physician Filed: 07/28/17 1342 Date of Service: 07/28/1756 Status: Signed Operations Inspector: Gutierrez Lopez MD (Physician) [facility] Service: Hospitalist Progress Note Hospital Day: LOS: 3 days Briefly 87-year-old male with significant past medical history of chronic atrial fibrillati on on Coumadin, pacemaker, prior CVA, type II diabetes mellitus, recent GI bleed 06/2017 wit h history of diverticulitis who presented on 07/24 for shortness of breath and dark stools. SUBJECTIVE No acute overnight events. Patient notes 4lb weight loss after weight measurements this Am. SOB-absent at rest. Worsened with exertion. Progression: Improving. REVIEW OF SYSTEMS: ROS The patient denies chest pain or palpitations. The patient denies any focal neurologic deficits or acute changes in speech or vision. OBJECTIVE Vital Signs: BP 143/63 (BP Location: Left upper arm) | Pulse 56 | Temp 98.2 F (36.8 C) (Oral) | R elian 20 | Ht 1.651 m (5' 5") | Wt 82.9 kg (182 lb 11.2 oz) | SpO2 99% | BMI 30.40 kg/m Constitutional: Awake and alert. Sitting in chair. No apparent acute distress. HEENT: Neck supple. Cardiovascular:irregularrhythm. Regular rate. No appreciable murmurs murmur heard. N o JVD. Trace peripheral edema bilaterally. Pulmonary/Chest: No respiratory distress. Course breath sounds at bases. Good air entry b ilaterally. No accessory muscle usage. Abdominal:Soft. Bowel sounds are normal. Exhibits no distension. There is no tenderness. There is no rebound and no guarding. Extremeties/Musculoskeletal:Normal range of motionfor patient. exhibits no tenderness. Neurological: Alert and oriented to person, place, and time.No cranial nerve defici tappreciated. Exhibits normal muscle tone. Coordination normal. Skin: Skin is warm and dry. No rash noted. No erythema. No pallor. Psychiatric: Appropriate mood. DATA Labs, medications, allergies and other treatment team notes reviewed. Principal Problem: Acute on chronic diastolic congestive heart failure (HCC) Active Problems: Atrial fibrillation, chronic Cardiac pacemaker in situ HTN (hypertension) HLD (hyperlipidemia) Type 2 diabetes mellitus without complication (HCC) Anemia Acute kidney injury (HCC) ASSESSMENT & PLAN 1. Acute on chronic diastolic heart failure secondary to volume overload - 2-D echo (07/26) demonstrates EF greater than 70 percent. Mild concentric left ventricula r hypertrophy. IVC is dilated and does not collapse with significant consistent with CVP gr eater than 20. Dilated aortic root measuring 4.2 cm. Severe pulmonary hypertension. No ao rtic stenosis. Moderate TR. - xr chest consistent with pulmonary edema - continue with fluid restriction, daily weights, strict I and O. - continue with lasix IV bid for now - We will target urine output 2-3 L daily. -Disposition tomorrow, pending CHF clinic placement and scheduling outpatient cardiology an d social placement. Chronic A-fib - s/p pacemaker placement - continue with rate control and continue the patients coumadin. - Monitor INR with goal 2-3 HTN - controlled at this time. Continue to hold lisinopril. - Hydralazine prn for SBP persistently > 140 -Labetalol prn for SBP persistently > 160 KATI - FEUrea < 35%, most likely pre-renal KATI, secondary to volume overload - avoid nephrotoxic agents - continue with lasix DM -Inpatient target 140-180 mg/dL. Continue with insulin sliding scale. Inpatient targets not met will add Levemir Prior CVA - continue with statin and coumadin Anemia: -HGB 7.9, presently asymptomatic. - Ferritin low - Will F/u stool occult and orthostatics, Outpatient follow-up colonoscopy advised and disc ussed with patient and spouse at bedside. -Start Fe therapy Gi/DVT prophylaxis Disposition: Inpatient Code Status: Full Code Gutierrez Lopez MD 07/28/2017 onversion Transact ion, Provider Unknown - 07/28/2017 6:13 AM PSTFormatting of this note might be different fr om the original. Nurse Progress Note by Stacey Ley RN at 07/28/17612 Author: Stacey Ley RN Service: (none) Author Type: Registered Nurse Filed: 07/28/17617 Date of Service: 07/28/17612 Status: Signed Operations Inspector: Stacey Ley RN (Registered Nurse) Patient again de-saturated once asleep (noted to drop down to as low as 82%). Supplemental O2 applied via NC with continuous pulse oximetry monitoring throughout shift. VS o/w stabl e. Evening BG 151, AM BG 100. Urine output has totaled 975 ml's this shift and weight has declined by 1 lb in the past 24 hours. H/H has declined slightly this morning to 7.9/23.7. Awaiting next BM's in order to collect stool specimens. No further concerns identified. W ill continue to monitor. 07/28/17 6:18 AM Stacey Ley RN bleGutierrez lyn MD - 07/27/2017 10:15 AM PST Progress Notes by Gutierrez Lopez MD at 07/27/17 1015 Author: Gutierrez Lopez MD Service: Hospitalist Author Type: Physician Filed: 07/27/17 1547 Date of Service: 07/27/17 1015 Status: Signed Operations Inspector: Gutierrez Lopez MD (Physician) [facility] Service: Hospitalist Progress Note Hospital Day: LOS: 2 days Briefly 87-year-old male with significant past medical history of chronic atrial fibrillati on on Coumadin, pacemaker, prior costovertebral angle, type II diabetes mellitus, recent GI bleed 06/2017 with history of diverticulitis who presented on 07/24 for shortness of breath a nd dark stools. SUBJECTIVE No acute overnight events. Shortness of breath intensity mild at rest. Worsened with ex ertion. Progression improving from yesterday. REVIEW OF SYSTEMS: ROS The patient denies fever or chills The patient denies chest pain or palpitations. OBJECTIVE Vital Signs: BP 169/76 (BP Location: Left upper arm) | Pulse 73 | Temp 97.9 F (36.6 C) (Oral) | R elian 20 | Ht 1.651 m (5' 5") | Wt 83.3 kg (183 lb 11.2 oz) | SpO2 96% | BMI 30.57 kg/m Constitutional: Awake and alert. Sitting in bed. No apparent acute distress. HEENT: Neck supple. Cardiovascular: irregular rhythm. Regular rate. Intact distal pulses. No appreciable murm urs murmur heard. No JVD. +1 peripheral edema bilaterally. Pulmonary/Chest: No respiratory distress. Course breath sounds at bases. Good air entry b ilaterally. No accessory muscle usage. Abdominal: Soft. Bowel sounds are normal. Exhibits no distension. There is no tenderness. There is no rebound and no guarding. Extremeties/Musculoskeletal: Normal range of motion for patient. exhibits no tenderness. Neurological: Alert and oriented to person, place, and time. No cranial nerve deficit ap preciated. Exhibits normal muscle tone. Coordination normal. Skin: Skin is warm and dry. No rash noted. No erythema. No pallor. Psychiatric: Appropriate mood. DATA Labs, medications, allergies and other treatment team notes reviewed. Principal Problem: Acute on chronic diastolic congestive heart failure (HCC) Active Problems: Atrial fibrillation, chronic Cardiac pacemaker in situ HTN (hypertension) HLD (hyperlipidemia) Type 2 diabetes mellitus without complication (HCC) Anemia Acute kidney injury (HCC) ASSESSMENT & PLAN 1. Acute on chronic diastolic heart failure secondary to volume overload - 2-D echo (07/26) demonstrates EF greater than 70 percent. Mild concentric left ventricula r hypertrophy. IVC is dilated and does not collapse with significant consistent with CVP gr eater than 20. Dilated aortic root measuring 4.2 cm. Severe pulmonary hypertension. No ao rtic stenosis. Moderate TR. - xr chest consistent with pulmonary edema - improved with lasix - continue with fluid restriction, daily weights, strict I and O. - continue with lasix IV bid for now - We will target urine output 2-3 L daily. Chronic A-fib - s/p pacemaker placement - continue with rate control and continue the patients coumadin. - Monitor INR with goal 2-3 - We will check stool occult 2, as noted in history of present illness black stools. Pat ient is on iron therapy. HTN - controlled at this time. Continue to hold lisinopril as kidney function improves It can be restarted KATI - possibly from prerenal azotemia secondary to volume overload - avoid nephrotoxic agents - continue with lasix -?CKD baseline. -F/U urine electrolytes. DM -Inpatient target 140-180 mg/dL. Discontinue metformin Continue with insulin sliding scale. Inpatient targets not met will add Levemir Prior CVA - continue with statin and coumadin Anemia possibly from recent GI bleed vs other Normocytic anemia. Currently close to baseline - check iron panel - transfuse if less than 7 or symptomatic. Gi/DVT prophylaxis Disposition: Inpatient Code Status: Full Code Gutierrez Lopez MD 07/27/2017 onversion Transact ion, Provider Unknown - 07/26/2017 2:32 PM PSTFormatting of this note might be different fr om the original. Case Management by Yousuf Mcfadden RN at 07/26/17 143 Author: Yousuf Mcfadden RN Service: (none) Author Type: Registered Nurse Filed: 07/26/17 1432 Date of Service: 07/26/171431 Status: Signed Operations Inspector: Yousuf Mcfadden RN (Registered Nurse) 07/26/17 143 Discharge Planning Evaluation Admitting Diagnosis CHF Readmission No Living Arrangements Spouse/significant other Support Systems Spouse/significant other;Children Type of Residence Private residence Independent with ADL's Yes Independent with Mobility Yes Mental Status Oriented Resources Financial concerns No Transportation issues No Patient/Family concerns No Prescription Plan Yes [facility] Previous home health equipment No Vascular access device No Anticipated Disposition Facility Type Home Met with Desiree and discussed discharge planning, Pt is a 87 y.o., male who is independent an d lives with his in [place]. He goes to the [facility] for his coumadin checks an d doesn't use any DME. Desiree denies having needs for discharge. Patient's PCP is:Janie Beltrán Patient's insurance:Medicare and [employer] Coverage concerns: none Medication coverage/concerns: yes/no Community resources utilized / needed: none Assistance in transportation: family Identification of any specific education / training: none Barriers to Discharge / Alternative housing needed:none Anticipated DCP: Yousuf Gagnon Nathen Pereira i, MD - 07/26/2017 8:09 AM PSTFormatting of this note might be different from the o riginal. Progress Notes by Nathen Coughlin MD at 07/26/17 0809 Author: Nathen Coughlin MD Service: Hospitalist Author Type: Physician Filed: 07/26/17 1341 Date of Service: 07/26/17808 Status: Signed Operations Inspector: Nathen Coughlin MD (Physician) [facility] Service: Hospitalist Progress Note Pt: Desiree Mcconnell AGE/SEX: 87 y.o. male ROOM: [address] [place] [address] : 1930 PCP: JANIE FITZGERALD ADMIT DATE: 07/25/2017 TODAY'S DATE: 07/26/2017 Hospital Day/Hospital Course: LOS: 1 day 87 year old m with pmh of chronic afib, pacemaker, warfarin use, prior cva, dm, recent GI b leed 06/2017 with diverticulitis. He presented with increased shortness of breath since that time. He was also complaining of PND and orthopnea. He did have some black stools, but is o n iron supplements. A FOBT was negative in the Er. He does drink 3-4L of fluid a day. He was also having increased edema b/l lower extremities. Upon his last discharge his hgb was 8.1 in [place]. He was given iv lasix with improvement SUBJECTIVE: Patient seen and examined. He feels much better this morning. States he is at least 50% bet ter. His shortness of breath has decreased. He also noticed his swelling of the lower ext de creased as well. He has no other complaints today. No chest pain, No Abdominal pain, N/V o r fever. No dizziness or lightheadedness. Scheduled Medications: amLODIPine 10 mg Oral Daily ascorbic acid 500 mg Oral Daily calcium carbonate-vitamin D 2 tablet Oral Daily with breakfast And Magnesium Chloride 1 tablet Oral Daily with breakfast furosemide 40 mg Intravenous BID-Diuretics insulin lispro (human) 0-3 Units Subcutaneous Nightly insulin lispro (human) 0-6 Units Subcutaneous TID AC metFORMIN 500 mg Oral TID metoprolol 25 mg Oral BID pantoprazole 40 mg Oral QAM AC potassium chloride 10 mEq Oral BID WC pravastatin 40 mg Oral Nightly terazosin 10 mg Oral Nightly warfarin 2.5 mg Oral Once per day on Mon And warfarin 5 mg Oral Once per day on Mon Continuous Infusions dextrose PRN Medications acetaminophen OR acetaminophen, dextrose, dextrose, dextrose, glucagon, glucagon, ondan setron OR ondansetron, polyethylene glycol, zolpidem Allergy: Allergies Allergen Reactions Codeine Nausea and Vomiting and Vertigo Morphine And Related Nausea Only Slow to recover OBJECTIVE: Vitals: Patient Vitals for the past 24 hrs: BP Temp Temp src Pulse Resp SpO2 Height Weight 07/26/17 0754 153/69 97.6 F (36.4 C) Oral 63 20 100 % - - 07/26/17 0232 130/61 97.7 F (36.5 C) Oral 59 20 99 % - - 07/25/17 2233 138/63 97.8 F (36.6 C) Oral 58 20 99 % - - 07/25/17 2132 141/61 - - 60 - - - - 07/25/17 2029 151/66 97.5 F (36.4 C) Oral 62 20 98 % - - 07/25/17 1440 153/70 97.8 F (36.6 C) Oral 60 20 99 % - - 07/25/17 1433 - - - - - - 1.651 m (5' 5") 84.7 kg (186 lb 11.2 oz) 07/25/17 1421 151/75 - - 60 18 98 % - - 07/25/17 1210 166/70 - - 60 20 98 % - - 07/25/17 1100 149/84 - - 60 - 98 % - - 07/25/17 1050 165/67 - - 63 20 98 % - - 07/25/17 1008 140/60 97.5 F (36.4 C) Oral 62 28 94 % - 88.3 kg (194 lb 10.7 oz) I&O Detailed Table: Intake/Output Summary (Last 24 hours) at 07/26/17 0809 Last data filed at 07/26/17 0751 Gross per 24 hour Intake 300 ml Output 1200 ml Net -900 ml Patient Vitals for the past 96 hrs: Weight 07/25/17 1433 84.7 kg (186 lb 11.2 oz) 07/25/17 1008 88.3 kg (194 lb 10.7 oz) Physical Examination: Constitutional: Awake, interactive. Appears well-developed and well-nourished. HEENT: Neck supple, no JVD, non icteric sclera. Cardiovascular: irregular rate and rhythm, and intact distal pulses. Exam reveals no appre ciated gallop or friction rub. No murmur heard. Pulmonary/Chest: Effort normal and breath sounds demonstrate mild crackles b/l bases and so me exp wheezes. No respiratory distress. Abdominal: Soft. Bowel sounds are normal. exhibits no distension and no mass. There is no t enderness. There is no rebound and no guarding. Extremeties/Musculoskeletal: Normal range of motion for patient. exhibits no tenderness. E xhibits 1+ edema b/l Neurological: Alert and oriented to person, place, and time. No cranial nerve deficit ap preciated. Exhibits normal muscle tone. Coordination normal. Skin: Skin is warm and dry. No rash noted. No erythema. No pallor. Psychiatric: Has a normal mood and affect given situation. . LABS: Recent Labs Lab 07/26/17 0413 07/25/17 1051 WBC 4.64 5.40 HGB 8.1* 8.6* HCT 24.3* 27.1* PLT 150 156 NEUTOPHILPCT 65.86 78.19 MONOPCT 11.19 8.98 Recent Labs Lab 07/26/17 0413 07/25/17 1051 NA 140 141 K 4.4 4.7 CL 106 109 CO2 26 23 BUN 21 21 CREATININE 1.5* 1.6* PROT 6.7 7.2 BILITOT 0.6 0.5 ALT 14 15 AST 13 16 Phosphorus: Lab Results Component Value Date PHOS 4.0 07/26/2017 Invalid input(s): LABALBU Recent Labs Lab 07/26/17 0413 MG 2.2 Recent Labs Lab 07/26/17 0413 07/25/17 1051 APTT -- 35* INR 2.4 2.8 Recent Labs Lab 07/26/17 0413 TSH 5.82* Recent Labs Lab 07/26/17 0001 07/25/17 1828 07/25/17 1051 CKTOTAL -- -- 68 TROPONINI <0.020 <0.020 <0.020 CKMBINDEX -- -- 3.2 RADIOLOGY: Xr Chest Pa And Lateral Result Date: 07/25/2017 1. Findings suggestive of mild pulmonary edema. Us Lower Extremity - Venous Bilateral Result Date: 07/25/2017 1. No definitive evidence of lower extremity deep vein thrombosis. LEM LIST Principal Problem: Acute on chronic diastolic congestive heart failure (HCC) Active Problems: Atrial fibrillation, chronic Cardiac pacemaker in situ HTN (hypertension) HLD (hyperlipidemia) Type 2 diabetes mellitus without complication (HCC) Anemia Acute kidney injury (HCC) ASSESSMENT & PLAN 1. Acute on chronic diastolic heart failure secondary to volume overload - previous echo reviewed from November 2016 shows Ef 55%. - xr chest consistent with pulmonary edema - improved with lasix - continue with fluid restriction, daily weights, strict I and O. - continue with lasix IV bid for now - echo pending Chronic A-fib - s/p pacemaker placement - continue with rate control and continue the patients coumadin. Monitor INR with goal 2-3 HTN - controlled at this time. Continue to hold lisinopril as kidney function improves It can be restarted KATI - possibly from cardiorenal - avoid nephrotoxic agents - continue with lasix, but will have to achieve fluid balance DM - continue with sliding scale insulin Prior CVA - continue with statin and coumadin Anemia possibly from recent GI bleed vs other Normocytic anemia. Currently close to baseline - check iron panel - transfuse if less than 7 Gi/DVT prophylaxis Nathen Coughlin MD 07/26/2017 8:09 AM Greater than 35 minutes spent today overall in coordination of care, seeing and managing pa tient, review of data, coordination with staff, coordination with involved consultants, and including any scheduled multidisciplinary rounding focused on the patient with 50 percent or more spent seeing and managing patient and counseling/coordination. Dictation software, Signature, used which may contain error for similar sounding words even af ter review. Personal communication requested for any clarification. Portions of this chart may have been copied from previous notes for continuity of care purp ose onversion Transacti on, Provider Unknown - 07/25/2017 7:47 PM PSTFormatting of this note might be different fro m the original. Progress Notes by Demond Sandy at 07/25/171946 Author: Demond Sandy Service: (none) Author Type: Filed: 07/25/171950 Date of Service: 07/25/171946 Status: Signed Operations Inspector: Demond Sandy () Visit per pt req. Pt sitting up in bed, pt (Marissa) sitting next to bed. Pt welcomed vi sit. Chp provided caring listening. Pt did some life review - talked proudly about his & wif e's 63 years of marriage & 3 children. Pt also explained he & are [employer]th [employer], an d quite involved there. Day RN & night RN came in to do hand-off report. Pt & both said how great the care has been & how they've enjoyed their nurses. Positive visit with kindly couple. Chaplain Demond Sandy onver jose a Transaction, Provider Unknown - 07/25/2017 2:49 PM PST Pharmacy Note by Renuka Reno RPH at 07/25/171448 Author: Renuka Reno RPH Service: Pharmacy Author Type: Pharmacist Filed: 07/25/171448 Date of Service: 07/25/171448 Status: Signed Operations Inspector: Renuka Reno RPH (Pharmacist) Renal Dosing Monitoring: Desiree Mcconnell 87 y.o. male Pharmacy dosing for renal function per Dr. Kanika Harding Estimated Creatinine Clearance: 33.8 mL/min (by C-G formula based on SCr of 1.6 mg/dL (H)). No changes at this time. Pharmacy will continue monitoring patient for appropriate dosing per renal function. 07/25/2017 2:49 PM Pharmacist: RENUKA RENO docume nted in this encounter Plan of Treatment +--------+ + + + + | Date | Type | Specialty | Care Team | Description | +--------+ + + + + | 01/29/ | Office | Nephrology | Isiah Jade MD | | | 2019 | Visit | | [address] [facility] [place] | | | | | | [address] | | | | | | [address] | | | | | | | | +--------+ + + + + | 02/05/ | Office | Cardiology | Dina Sanchez DO | | | 2019 | Visit | | [address] | | | | | | [place] | | | | | | [address] | | | | | | | | +--------+ + + + + | 02/09/ | Procedure | Cardiology | | | | 2019 | visit | | | | +--------+ + + + + | 02/17/ | Office | Orthopedic Surgery | Melquiades Baez | | | 2019 | Visit | | DO [address] | | | | | | [place], | | | | | | [place] [address] | | | | | | [phone] | | | | | | | | +--------+ + + + + | 03/09/ | Office | Nephrology | Isiah Jade MD | | | 2019 | Visit | | [address] [facility] | | | | | | [address] | | | | | | [address] | | | | | | | | +--------+ + + + + documented as of this encounter Procedures + +--------+ + + + | Procedure Name | Priori | Date/Time | Associated Diagnosis | Comments | | | ty | | | | + +--------+ + + + | POC GLUCOSE | Routin | 07/29/2017 | | Results for this | | | e | 12:54 PM | | procedure are in the | | | | PST | | results section. | + +--------+ + + + | POC GLUCOSE | Routin | 07/29/2017 | | Results for this | | | e | 11:16 AM | | procedure are in the | | | | PST | | results section. | + +--------+ + + + | POC GLUCOSE | Routin | 07/29/2017 | | Results for this | | | e | 5:31 AM | | procedure are in the | | | | PST | | results section. | + +--------+ + + + | EXTERNAL LAB: CBC | Routin | 07/29/2017 | | Results for this | | | e | 5:10 AM | | procedure are in the | | | | PST | | results section. | + +--------+ + + + | PROTIME INR | Routin | 07/29/2017 | | Results for this | | | e | 5:10 AM | | procedure are in the | | | | PST | | results section. | + +--------+ + + + | MAGNESIUM | Routin | 07/29/2017 | | Results for this | | | e | 5:10 AM | | procedure are in the | | | | PST | | results section. | + +--------+ + + + | BASIC METABOLIC | Routin | 07/29/2017 | | Results for this | | PANEL | e | 5:10 AM | | procedure are in the | | | | PST | | results section. | + +--------+ + + + | POC GLUCOSE | Routin | 07/28/2017 | | Results for this | | | e | 9:13 PM | | procedure are in the | | | | PST | | results section. | + +--------+ + + + | POC GLUCOSE | Routin | 07/28/2017 | | Results for this | | | e | 3:54 PM | | procedure are in the | | | | PST | | results section. | + +--------+ + + + | POC GLUCOSE | Routin | 07/28/2017 | | Results for this | | | e | 1:01 PM | | procedure are in the | | | | PST | | results section. | + +--------+ + + + | EXTERNAL LAB: OCCULT | Timed | 07/28/2017 | | Results for this | | BLOOD, SCREENING | | 8:37 AM | | procedure are in the | | | | PST | | results section. | + +--------+ + + + | POC GLUCOSE | Routin | 07/28/2017 | | Results for this | | | e | 5:32 AM | | procedure are in the | | | | PST | | results section. | + +--------+ + + + | EXTERNAL LAB: CBC | Routin | 07/28/2017 | | Results for this | | | e | 4:42 AM | | procedure are in the | | | | PST | | results section. | + +--------+ + + + | PROTIME INR | Routin | 07/28/2017 | | Results for this | | | e | 4:42 AM | | procedure are in the | | | | PST | | results section. | + +--------+ + + + | COMPREHENSIVE | Routin | 07/28/2017 | | Results for this | | METABOLIC PANEL | e | 4:42 AM | | procedure are in the | | | | PST | | results section. | + +--------+ + + + | POC GLUCOSE | Routin | 07/27/2017 | | Results for this | | | e | 9:23 PM | | procedure are in the | | | | PST | | results section. | + +--------+ + + + | POC GLUCOSE | Routin | 07/27/2017 | | Results for this | | | e | 4:49 PM | | procedure are in the | | | | PST | | results section. | + +--------+ + + + | UREA NITROGEN, | Routin | 07/27/2017 | | Results for this | | URINE, RANDOM | e | 2:19 PM | | procedure are in the | | | | PST | | results section. | + +--------+ + + + | CREATININE, URINE, | Routin | 07/27/2017 | | Results for this | | RANDOM | e | 2:19 PM | | procedure are in the | | | | PST | | results section. | + +--------+ + + + | POC GLUCOSE | Routin | 07/27/2017 | | Results for this | | | e | 12:47 PM | | procedure are in the | | | | PST | | results section. | + +--------+ + + + | POC GLUCOSE | Routin | 07/27/2017 | | Results for this | | | e | 6:12 AM | | procedure are in the | | | | PST | | results section. | + +--------+ + + + | EXTERNAL LAB: CBC | Routin | 07/27/2017 | | Results for this | | | e | 4:50 AM | | procedure are in the | | | | PST | | results section. | + +--------+ + + + | IRON AND IRON | Routin | 07/27/2017 | | Results for this | | BINDING CAPACITY | e | 4:50 AM | | procedure are in the | | | | PST | | results section. | + +--------+ + + + | PROTIME INR | Routin | 07/27/2017 | | Results for this | | | e | 4:50 AM | | procedure are in the | | | | PST | | results section. | + +--------+ + + + | RETIC COUNT | Routin | 07/27/2017 | | Results for this | | | e | 4:50 AM | | procedure are in the | | | | PST | | results section. | + +--------+ + + + | FERRITIN | Routin | 07/27/2017 | | Results for this | | | e | 4:50 AM | | procedure are in the | | | | PST | | results section. | + +--------+ + + + | COMPREHENSIVE | Routin | 07/27/2017 | | Results for this | | METABOLIC PANEL | e | 4:50 AM | | procedure are in the | | | | PST | | results section. | + +--------+ + + + | POC GLUCOSE | Routin | 07/26/2017 | | Results for this | | | e | 9:22 PM | | procedure are in the | | | | PST | | results section. | + +--------+ + + + | POC GLUCOSE | Routin | 07/26/2017 | | Results for this | | | e | 4:18 PM | | procedure are in the | | | | PST | | results section. | + +--------+ + + + | POC GLUCOSE | Routin | 07/26/2017 | | Results for this | | | e | 11:24 AM | | procedure are in the | | | | PST | | results section. | + +--------+ + + + | ECHO COMPLETE | Routin | 07/26/2017 | | Results for this | | | e | 10:11 AM | | procedure are in the | | | | PST | | results section. | + +--------+ + + + | POC GLUCOSE | Routin | 07/26/2017 | | Results for this | | | e | 6:19 AM | | procedure are in the | | | | PST | | results section. | + +--------+ + + + | EXTERNAL LAB: CBC | Routin | 07/26/2017 | | Results for this | | | e | 4:13 AM | | procedure are in the | | | | PST | | results section. | + +--------+ + + + | PROTIME INR | Routin | 07/26/2017 | | Results for this | | | e | 4:13 AM | | procedure are in the | | | | PST | | results section. | + +--------+ + + + | TSH | Routin | 07/26/2017 | | Results for this | | | e | 4:13 AM | | procedure are in the | | | | PST | | results section. | + +--------+ + + + | PHOSPHORUS | Routin | 07/26/2017 | | Results for this | | | e | 4:13 AM | | procedure are in the | | | | PST | | results section. | + +--------+ + + + | B TYPE NATRIURETIC | Routin | 07/26/2017 | | Results for this | | PEPTIDE | e | 4:13 AM | | procedure are in the | | | | PST | | results section. | + +--------+ + + + | MAGNESIUM | Routin | 07/26/2017 | | Results for this | | | e | 4:13 AM | | procedure are in the | | | | PST | | results section. | + +--------+ + + + | HEMOGLOBIN A1C | Routin | 07/26/2017 | | Results for this | | | e | 4:13 AM | | procedure are in the | | | | PST | | results section. | + +--------+ + + + | COMPREHENSIVE | Routin | 07/26/2017 | | Results for this | | METABOLIC PANEL | e | 4:13 AM | | procedure are in the | | | | PST | | results section. | + +--------+ + + + | TROPONIN I | Routin | 07/26/2017 | | Results for this | | | e | 12:01 AM | | procedure are in the | | | | PST | | results section. | + +--------+ + + + | POC GLUCOSE | Routin | 07/25/2017 | | Results for this | | | e | 9:32 PM | | procedure are in the | | | | PST | | results section. | + +--------+ + + + | TROPONIN I | Routin | 07/25/2017 | | Results for this | | | e | 6:28 PM | | procedure are in the | | | | PST | | results section. | + +--------+ + + + | POC GLUCOSE | Routin | 07/25/2017 | | Results for this | | | e | 4:19 PM | | procedure are in the | | | | PST | | results section. | + +--------+ + + + | VAS LOWER EXTREMITY | Routin | 07/25/2017 | | Results for this | | VENOUS BILATERAL | e | 1:30 PM | | procedure are in the | | | | PST | | results section. | + +--------+ + + + | XR CHEST 2 VIEWS | Routin | 07/25/2017 | | Results for this | | | e | 11:18 AM | | procedure are in the | | | | PST | | results section. | + +--------+ + + + | HISTORICAL LAB PANEL | Routin | 07/25/2017 | | Results for this | | RESULT | e | 10:51 AM | | procedure are in the | | | | PST | | results section. | + +--------+ + + + | TROPONIN I | Routin | 07/25/2017 | | Results for this | | | e | 10:51 AM | | procedure are in the | | | | PST | | results section. | + +--------+ + + + | B TYPE NATRIURETIC | Routin | 07/25/2017 | | Results for this | | PEPTIDE | e | 10:51 AM | | procedure are in the | | | | PST | | results section. | + +--------+ + + + | EXTERNAL LAB: OCCULT | Routin | 07/25/2017 | | Results for this | | BLOOD, SCREENING | e | 10:42 AM | | procedure are in the | | | | PST | | results section. | + +--------+ + + + | ECG 12 LEAD | Routin | 07/25/2017 | | Results for this | | | e | 10:35 AM | | procedure are in the | | | | PST | | results section. | + +--------+ + + + documented in this encounter Results POC Glucose (07/29/2017 12:54 PM PST) + + + + + + | Component | Value | Ref Range | Performed | Pathologist | | | | | At | Signature | + + + + + + | Glucose, | 119 (H)Comment: Testing | 65 - 99 mg/dL | EXTERNAL | | | Fingerstick | performed at [facility];[address] | | LAB | | | [address];[place], [place] | | | | | | [address] | | | | + + + + + + + + | Specimen | + + | | + + + +---------+ + + | Performing | Address | City/State/Zipcode | Phone Number | | Organization | | | | + +---------+ + + | EXTERNAL LAB | | | | + +---------+ + + POC Glucose (07/29/2017 11:16 AM PST) + + + + + + | Component | Value | Ref Range | Performed | Pathologist | | | | | At | Signature | + + + + + + | Glucose, | 172 (H)Comment: Testing | 65 - 99 mg/dL | EXTERNAL | | | Fingerstick | performed at [facility];[address] | | LAB | | | | [address];[place] | | | | | | [address] | | | | + + + + + + + + | Specimen | + + | | + + + +---------+ + + | Performing | Address | City/State/Zipcode | Phone Number | | Organization | | | | + +---------+ + + | EXTERNAL LAB | | | | + +---------+ + + POC Glucose (07/29/2017 5:31 AM PST) + + + + + + | Component | Value | Ref Range | Performed | Pathologist | | | | | At | Signature | + + + + + + | Glucose, | 122 (H)Comment: Testing | 65 - 99 mg/dL | EXTERNAL | | | Fingerstick | performed at [facility];[address] | | LAB | | | | [address];[place], [place] | | | | | | [address] | | | | + + + + + + + + | Specimen | + + | | + + + +---------+ + + | Performing | Address | City/State/Zipcode | Phone Number | | Organization | | | | + +---------+ + + | EXTERNAL LAB | | | | + +---------+ + + Shine ORTEGA (07/29/2017 5:10 AM PST) + + + + + + | Component | Value | Ref Range | Performed | Pathologist | | | | | At | Signature | + + + + + + | INR | 2.8Comment: REFERENCE | | EXTERNAL | | | | RANGE:0.9 - 1.2 | | LAB | | | | NON-ANTICOAGULATED2.0 | | | | | | - 3.0 ALL OTHER | | | | | | THERAPEUTIC | | | | | | INDICATIONS2.5 - 3.5 | | | | | | MECHANICAL HEART VALVES, | | | | | | RECURRENT OR SYSTEMIC | | | | | | EMBOLISMTesting | | | | | | performed at [facility] | | | | | | [facility];[place], [place] | | | | | | [address] | | | | + + + + + + + + | Specimen | + + | Blood specimen | | (specimen) | + + + +---------+ + + | Performing | Address | City/State/Zipcode | Phone Number | | Organization | | | | + +---------+ + + | EXTERNAL LAB | | | | + +---------+ + + External Lab: CBC (07/29/2017 5:10 AM PST) + + + + + + | Component | Value | Ref Range | Performed | Pathologist | | | | | At | Signature | + + + + + + | WBC | 4.59 | 3.80 - 11.00 | EXTERNAL | | | | | K/uL | LAB | | + + + + + + | Red Blood | 2.85 (L) | 4.20 - 5.70 | EXTERNAL | | | Cells | | M/uL | LAB | | | Counted | | | | | + + + + + + | Hemoglobin | 8.3 (L) | 13.2 - 17.0 | EXTERNAL | | | | | g/dL | LAB | | + + + + + + | Hematocrit, | 25.0 (L) | 39.0 - 50.0 % | EXTERNAL | | | POC | | | LAB | | + + + + + + | MCV | 87.5 | 80.0 - 100.0 fl | EXTERNAL | | | | | | LAB | | + + + + + + | MCH | 29.2 | 27.0 - 34.0 pg | EXTERNAL | | | | | | LAB | | + + + + + + | MCHC | 33.3 | 32.0 - 35.5 | EXTERNAL | | | | | g/dL | LAB | | + + + + + + | RDW-CV | 53.4 (H) | 37 - 53 fl | EXTERNAL | | | | | | LAB | | + + + + + + | Platelet | 159 | 150 - 400 K/uL | EXTERNAL | | | Count | | | LAB | | | Plasma | | | | | + + + + + + | MPV | 8.5 | fl | EXTERNAL | | | | | | LAB | | + + + + + + | Differentia | AUTOMATED | | EXTERNAL | | | l Type | | | LAB | | + + + + + + | % Segmented | 72.20 | % | EXTERNAL | | | | | | LAB | | | Neutrophils | | | | | + + + + + + | % | 13.39 | % | EXTERNAL | | | Lymphocytes | | | LAB | | + + + + + + | % Monocytes | 9.21 | % | EXTERNAL | | | | | | LAB | | + + + + + + | % | 4.22 | % | EXTERNAL | | | Eosinophils | | | LAB | | + + + + + + | % Basophils | 0.98 | % | EXTERNAL | | | | | | LAB | | + + + + + + | Absolute | 3.32 | 1.90 - 7.40 | EXTERNAL | | | Segmented | | K/uL | LAB | | | Neutrophils | | | | | + + + + + + | Absolute | 0.62 (L) | 1.00 - 3.90 | EXTERNAL | | | Lymphocytes | | K/uL | LAB | | + + + + + + | Absolute | 0.42 | 0.00 - 0.80 | EXTERNAL | | | Monocytes | | K/uL | LAB | | + + + + + + | Absolute | 0.19 | 0.00 - 0.50 | EXTERNAL | | | Eosinophils | | K/uL | LAB | | + + + + + + | Absolute | 0.05Comment: Testing | 0.00 - 0.10 | EXTERNAL | | | Basophils | performed at [facility], [address] | K/uL | LAB | | | | [address], | | | | | | [place] [address] | | | | + + + + + + + + | Specimen | + + | Blood specimen | | (specimen) | + + + +---------+ + + | Performing | Address | City/State/Zipcode | Phone Number | | Organization | | | | + +---------+ + + | EXTERNAL LAB | | | | + +---------+ + + Magnesium (07/29/2017 5:10 AM PST) + + + + + + | Component | Value | Ref Range | Performed | Pathologist | | | | | At | Signature | + + + + + + | Magnesium | 2.3Comment: Testing | 1.7 - 2.4 mg/dL | EXTERNAL | | | | performed at [facility], [address] | | LAB | | | | [address], | | | | | | [place] [address] | | | | + + + + + + + + | Specimen | + + | Blood specimen | | (specimen) | + + + +---------+ + + | Performing | Address | City/State/Zipcode | Phone Number | | Organization | | | | + +---------+ + + | EXTERNAL LAB | | | | + +---------+ + + Basic Metabolic Panel (07/29/2017 5:10 AM PST) + + + + + + | Component | Value | Ref Range | Performed | Pathologist | | | | | At | Signature | + + + + + + | Na | 141 | 135 - 145 | EXTERNAL | | | | | mmol/L | LAB | | + + + + + + | K | 3.6 | 3.5 - 4.9 | EXTERNAL | | | | | mmol/L | LAB | | + + + + + + | Cl | 106 | 99 - 109 mmol/L | EXTERNAL | | | | | | LAB | | + + + + + + | CO2 | 26 | 23 - 32 mmol/L | EXTERNAL | | | | | | LAB | | + + + + + + | Anion Gap | 13 | 5 - 20 mmol/L | EXTERNAL | | | | | | LAB | | + + + + + + | Glucose, | 113 (H) | 65 - 99 mg/dL | EXTERNAL | | | Fasting | | | LAB | | + + + + + + | BUN | 23 | 8 - 25 mg/dL | EXTERNAL | | | | | | LAB | | + + + + + + | Creatinine | 1.2 | 0.70 - 1.30 | EXTERNAL | | | | | mg/dL | LAB | | + + + + + + | BUN/Creatin | 19 | | EXTERNAL | | | ine Ratio | | | LAB | | + + + + + + | Calcium | 8.8 | 8.5 - 10.5 | EXTERNAL | | | | | mg/dL | LAB | | + + + + + + | Estimated | >60Comment: GFR <60: | mL/min/1.73m2 | EXTERNAL | | | GFR | CHRONIC KIDNEY DISEASE, | | LAB | | | | IF FOUND OVER A 3 MONTH | | | | | | PERIOD.GFR <15: KIDNEY | | | | | | FAILURE.FOR | | | | | | AMERICANS, MULTIPLY THE | | | | | | CALCULATED GFR BY | | | | | | 1.210.Testing performed | | | | | | at [facility], [address] | | | | | [address], | | | | | | [place] [address] | | | | + + + + + + + + | Specimen | + + | Blood specimen | | (specimen) | + + + +---------+ + + | Performing | Address | City/State/Zipcode | Phone Number | | Organization | | | | + +---------+ + + | EXTERNAL LAB | | | | + +---------+ + + POC Glucose (07/28/2017 9:13 PM PST) + + + + + + | Component | Value | Ref Range | Performed | Pathologist | | | | | At | Signature | + + + + + + | Glucose, | 157 (H)Comment: Testing | 65 - 99 mg/dL | EXTERNAL | | | Fingerstick | performed at [facility];[address] | | LAB | | | | [address];[place] | | | | | | [address] | | | | + + + + + + + + | Specimen | + + | | + + + +---------+ + + | Performing | Address | City/State/Zipcode | Phone Number | | Organization | | | | + +---------+ + + | EXTERNAL LAB | | | | + +---------+ + + POC Glucose (07/28/2017 3:54 PM PST) + + + + + + | Component | Value | Ref Range | Performed | Pathologist | | | | | At | Signature | + + + + + + | Glucose, | 165 (H)Comment: Testing | 65 - 99 mg/dL | EXTERNAL | | | Fingerstick | performed at [facility];[address] | | LAB | | | | [address];[place] | | | | | | [address] | | | | + + + + + + + + | Specimen | + + | | + + + +---------+ + + | Performing | Address | City/State/Zipcode | Phone Number | | Organization | | | | + +---------+ + + | EXTERNAL LAB | | | | + +---------+ + + POC Glucose (07/28/2017 1:01 PM PST) + + + + + + | Component | Value | Ref Range | Performed | Pathologist | | | | | At | Signature | + + + + + + | Glucose, | 139 (H)Comment: Testing | 65 - 99 mg/dL | EXTERNAL | | | Fingerstick | performed at [facility];[address] | | LAB | | | | [address];[place], [place] | | | | | | [address] | | | | + + + + + + + + | Specimen | + + | | + + + +---------+ + + | Performing | Address | City/State/Zipcode | Phone Number | | Organization | | | | + +---------+ + + | EXTERNAL LAB | | | | + +---------+ + + External Lab: Occult Blood, Screening (07/28/2017 8:37 AM PST) + + | Specimen | + + | | + + + + + | Narrative | Performed At | + + + | OCCULT BLOOD #1 NEGATIVE OCCULT | EXTERNAL LAB | | BLOOD #2 NO SPECIMEN RECEIVEDAbnormal | | | Testing performed at [facility];[address] [place] [address];[place] [address] | | + + + + +---------+ + + | Performing | Address | City/State/Zipcode | Phone Number | | Organization | | | | + +---------+ + + | EXTERNAL LAB | | | | + +---------+ + + POC Glucose (07/28/2017 5:32 AM PST) + + + + + + | Component | Value | Ref Range | Performed | Pathologist | | | | | At | Signature | + + + + + + | Glucose, | 100 (H)Comment: Testing | 65 - 99 mg/dL | EXTERNAL | | | Fingerstick | performed at [facility];[address] | | LAB | | | | [address];[place] | | | | | | [address] | | | | + + + + + + + + | Specimen | + + | | + + + +---------+ + + | Performing | Address | City/State/Zipcode | Phone Number | | Organization | | | | + +---------+ + + | EXTERNAL LAB | | | | + +---------+ + + Protime INR (07/28/2017 4:42 AM PST) + + + + + + | Component | Value | Ref Range | Performed | Pathologist | | | | | At | Signature | + + + + + + | INR | 2.5Comment: REFERENCE | | EXTERNAL | | | | RANGE:0.9 - 1.2 | | LAB | | | | NON-ANTICOAGULATED2.0 | | | | | | - 3.0 ALL OTHER | | | | | | THERAPEUTIC | | | | | | INDICATIONS2.5 - 3.5 | | | | | | MECHANICAL HEART VALVES, | | | | | | RECURRENT OR SYSTEMIC | | | | | | EMBOLISMTesting | | | | | | performed at [facility];[address] | | | | | | [facility];[place], [place] | | | | | | [address] | | | | + + + + + + + + | Specimen | + + | Blood specimen | | (specimen) | + + + +---------+ + + | Performing | Address | City/State/Zipcode | Phone Number | | Organization | | | | + +---------+ + + | EXTERNAL LAB | | | | + +---------+ + + External Lab: CBC (07/28/2017 4:42 AM PST) + + + + + + | Component | Value | Ref Range | Performed | Pathologist | | | | | At | Signature | + + + + + + | WBC | 4.18 | 3.80 - 11.00 | EXTERNAL | | | | | K/uL | LAB | | + + + + + + | Red Blood | 2.70 (L) | 4.20 - 5.70 | EXTERNAL | | | Cells | | M/uL | LAB | | | Counted | | | | | + + + + + + | Hemoglobin | 7.9 (L) | 13.2 - 17.0 | EXTERNAL | | | | | g/dL | LAB | | + + + + + + | Hematocrit, | 23.7 (L) | 39.0 - 50.0 % | EXTERNAL | | | POC | | | LAB | | + + + + + + | MCV | 87.7 | 80.0 - 100.0 fl | EXTERNAL | | | | | | LAB | | + + + + + + | MCH | 29.3 | 27.0 - 34.0 pg | EXTERNAL | | | | | | LAB | | + + + + + + | MCHC | 33.4 | 32.0 - 35.5 | EXTERNAL | | | | | g/dL | LAB | | + + + + + + | RDW-CV | 53.4 (H) | 37 - 53 fl | EXTERNAL | | | | | | LAB | | + + + + + + | Platelet | 147 (L) | 150 - 400 K/uL | EXTERNAL | | | Count | | | LAB | | | Plasma | | | | | + + + + + + | MPV | 8.5 | fl | EXTERNAL | | | | | | LAB | | + + + + + + | Differentia | AUTOMATED | | EXTERNAL | | | l Type | | | LAB | | + + + + + + | % Segmented | 68.27 | % | EXTERNAL | | | | | | LAB | | | Neutrophils | | | | | + + + + + + | % | 15.08 | % | EXTERNAL | | | Lymphocytes | | | LAB | | + + + + + + | % Monocytes | 10.84 | % | EXTERNAL | | | | | | LAB | | + + + + + + | % | 5.08 | % | EXTERNAL | | | Eosinophils | | | LAB | | + + + + + + | % Basophils | 0.73 | % | EXTERNAL | | | | | | LAB | | + + + + + + | Absolute | 2.85 | 1.90 - 7.40 | EXTERNAL | | | Segmented | | K/uL | LAB | | | Neutrophils | | | | | + + + + + + | Absolute | 0.63 (L) | 1.00 - 3.90 | EXTERNAL | | | Lymphocytes | | K/uL | LAB | | + + + + + + | Absolute | 0.45 | 0.00 - 0.80 | EXTERNAL | | | Monocytes | | K/uL | LAB | | + + + + + + | Absolute | 0.21 | 0.00 - 0.50 | EXTERNAL | | | Eosinophils | | K/uL | LAB | | + + + + + + | Absolute | 0.03Comment: Testing | 0.00 - 0.10 | EXTERNAL | | | Basophils | performed at [facility], [address] | [address] | LAB | | | | [address], | | | | | | [place] [address] | | | | + + + + + + + + | Specimen | + + | Blood specimen | | (specimen) | + + + +---------+ + + | Performing | Address | City/State/Zipcode | Phone Number | | Organization | | | | + +---------+ + + | EXTERNAL LAB | | | | + +---------+ + + Comprehensive Metabolic Panel (07/28/2017 4:42 AM PST) + + + + + + | Component | Value | Ref Range | Performed | Pathologist | | | | | At | Signature | + + + + + + | Na | 142 | 135 - 145 | EXTERNAL | | | | | mmol/L | LAB | | + + + + + + | K | 3.9 | 3.5 - 4.9 | EXTERNAL | | | | | mmol/L | LAB | | + + + + + + | Cl | 108 | 99 - 109 mmol/L | EXTERNAL | | | | | | LAB | | + + + + + + | CO2 | 28 | 23 - 32 mmol/L | EXTERNAL | | | | | | LAB | | + + + + + + | Anion Gap | 10 | 5 - 20 mmol/L | EXTERNAL | | | | | | LAB | | + + + + + + | Glucose, | 93 | 65 - 99 mg/dL | EXTERNAL | | | Fasting | | | LAB | | + + + + + + | BUN | 24 | 8 - 25 mg/dL | EXTERNAL | | | | | | LAB | | + + + + + + | Creatinine | 1.3 | 0.70 - 1.30 | EXTERNAL | | | | | mg/dL | LAB | | + + + + + + | BUN/Creatin | 18 | | EXTERNAL | | | ine Ratio | | | LAB | | + + + + + + | Calcium | 8.6 | 8.5 - 10.5 | EXTERNAL | | | | | mg/dL | LAB | | + + + + + + | Protein, | 6.4 | 6.3 - 8.2 g/dL | EXTERNAL | | | Total | | | LAB | | + + + + + + | Albumin | 2.8 (L) | 3.3 - 4.8 g/dL | EXTERNAL | | | | | | LAB | | + + + + + + | Globulin | 3.6 | 1.3 - 4.9 g/dL | EXTERNAL | | | | | | LAB | | + + + + + + | A/G Ratio | 0.8 (L) | 1.0 - 2.4 | EXTERNAL | | | | | | LAB | | + + + + + + | Bilirubin | 0.5 | 0.1 - 1.5 mg/dL | EXTERNAL | | | Total | | | LAB | | + + + + + + | ALP, | 50 | 35 - 115 U/L | EXTERNAL | | | External | | | LAB | | + + + + + + | AST | 12 | 10 - 45 U/L | EXTERNAL | | | | | | LAB | | + + + + + + | ALT | 12 | 10 - 65 U/L | EXTERNAL | | | | | | LAB | | + + + + + + | Estimated | 56 (L)Comment: GFR <60: | mL/min/1.73m2 | EXTERNAL | | | GFR | CHRONIC KIDNEY DISEASE, | | LAB | | | | IF FOUND OVER A 3 MONTH | | | | | | PERIOD.GFR <15: KIDNEY | | | | | | FAILURE.FOR | | | | | | AMERICANS, MULTIPLY THE | | | | | | CALCULATED GFR BY | | | | | | 1.210.Testing performed | | | | | | at [facility], [address] | | | | | | [facility], | | | | | | [place] [address] | | | | + + + + + + + + | Specimen | + + | Blood specimen | | (specimen) | + + + +---------+ + + | Performing | Address | City/State/Zipcode | Phone Number | | Organization | | | | + +---------+ + + | EXTERNAL LAB | | | | + +---------+ + + POC Glucose (07/27/2017 9:23 PM PST) + + + + + + | Component | Value | Ref Range | Performed | Pathologist | | | | | At | Signature | + + + + + + | Glucose, | 151 (H)Comment: Testing | 65 - 99 mg/dL | EXTERNAL | | | Fingerstick | performed at [facility];[address] | | LAB | | | | [address];[place] | | | | | | [address] | | | | + + + + + + + + | Specimen | + + | | + + + +---------+ + + | Performing | Address | City/State/Zipcode | Phone Number | | Organization | | | | + +---------+ + + | EXTERNAL LAB | | | | + +---------+ + + POC Glucose (07/27/2017 4:49 PM PST) + + + + + + | Component | Value | Ref Range | Performed | Pathologist | | | | | At | Signature | + + + + + + | Glucose, | 130 (H)Comment: Testing | 65 - 99 mg/dL | EXTERNAL | | | Fingerstick | performed at [facility];[address] | | LAB | | | | [address];[place] | | | | | | [address] | | | | + + + + + + + + | Specimen | + + | | + + + +---------+ + + | Performing | Address | City/State/Zipcode | Phone Number | | Organization | | | | + +---------+ + + | EXTERNAL LAB | | | | + +---------+ + + Urea Nitrogen, Urine, Random (07/27/2017 2:19 PM PST) + + + + + + | Component | Value | Ref Range | Performed | Pathologist | | | | | At | Signature | + + + + + + | Urea | 412.0Comment: NO NORMAL | mg/dL | EXTERNAL | | | Nitrogen, | RANGE ESTABLISHEDTesting | | LAB | | | Urine | performed at [facility], [address], | | | | | | [place] [address] | | | | + + + + + + + + | Specimen | + + | | + + + +---------+ + + | Performing | Address | City/State/Zipcode | Phone Number | | Organization | | | | + +---------+ + + | EXTERNAL LAB | | | | + +---------+ + + Creatinine, Urine, Random (07/27/2017 2:19 PM PST) + + + + + + | Component | Value | Ref Range | Performed | Pathologist | | | | | At | Signature | + + + + + + | Creatinine, | 72.0Comment: NO NORMAL | mg/dL | EXTERNAL | | | Urine | RANGE ESTABLISHEDTesting | | LAB | | | | performed at [facility], [address] | [address], | | | | | | [place] [address] | | | | + + + + + + + + | Specimen | + + | Urine specimen | | (specimen) | + + + +---------+ + + | Performing | Address | City/State/Zipcode | Phone Number | | Organization | | | | + +---------+ + + | EXTERNAL LAB | | | | + +---------+ + + POC Glucose (07/27/2017 12:47 PM PST) + + + + + + | Component | Value | Ref Range | Performed | Pathologist | | | | | At | Signature | + + + + + + | Glucose, | 125 (H)Comment: Testing | 65 - 99 mg/dL | EXTERNAL | | | Fingerstick | performed at [facility];[address] | | LAB | | | | [address];[place] | | | | | | [address] | | | | + + + + + + + + | Specimen | + + | | + + + +---------+ + + | Performing | Address | City/State/Zipcode | Phone Number | | Organization | | | | + +---------+ + + | EXTERNAL LAB | | | | + +---------+ + + POC Glucose (07/27/2017 6:12 AM PST) + + + + + + | Component | Value | Ref Range | Performed | Pathologist | | | | | At | Signature | + + + + + + | Glucose, | 104 (H)Comment: Testing | 65 - 99 mg/dL | EXTERNAL | | | Fingerstick | performed at [facility];[address] | | LAB | | | | [address];[place] | | | | | | [address] | | | | + + + + + + + + | Specimen | + + | | + + + +---------+ + + | Performing | Address | City/State/Zipcode | Phone Number | | Organization | | | | + +---------+ + + | EXTERNAL LAB | | | | + +---------+ + + Iron and Iron Binding Capacity (07/27/2017 4:50 AM PST) + + + + + + | Component | Value | Ref Range | Performed | Pathologist | | | | | At | Signature | + + + + + + | Iron | 25 (L) | 45 - 190 ug/dL | EXTERNAL | | | | | | LAB | | + + + + + + | TIBC | 307 | 250 - 450 ug/dL | EXTERNAL | | | | | | LAB | | + + + + + + | Iron | 8 (L)Comment: Testing | 20 - 50 % | EXTERNAL | | | Saturation | performed at [facility], [address] | | LAB | | | | [address], | | | | | | [place] [address] | | | | + + + + + + + + | Specimen | + + | Blood specimen | | (specimen) | + + + +---------+ + + | Performing | Address | City/State/Zipcode | Phone Number | | Organization | | | | + +---------+ + + | EXTERNAL LAB | | | | + +---------+ + + Protime INR (07/27/2017 4:50 AM PST) + + + + + + | Component | Value | Ref Range | Performed | Pathologist | | | | | At | Signature | + + + + + + | INR | 2.4Comment: REFERENCE | | EXTERNAL | | | | RANGE:0.9 - 1.2 | | LAB | | | | NON-ANTICOAGULATED2.0 | | | | | | - 3.0 ALL OTHER | | | | | | THERAPEUTIC | | | | | | INDICATIONS2.5 - 3.5 | | | | | | MECHANICAL HEART VALVES, | | | | | | RECURRENT OR SYSTEMIC | | | | | | EMBOLISMTesting | | | | | | performed at [facility];[address] | | | | | | [address];[place], [place] | | | | | | [address] | | | | + + + + + + + + | Specimen | + + | Blood specimen | | (specimen) | + + + +---------+ + + | Performing | Address | City/State/Zipcode | Phone Number | | Organization | | | | + +---------+ + + | EXTERNAL LAB | | | | + +---------+ + + Retic Count (07/27/2017 4:50 AM PST) + + + + + + | Component | Value | Ref Range | Performed | Pathologist | | | | | At | Signature | + + + + + + | % | 1.5Comment: Testing | 0.4 - 2.7 % | EXTERNAL | | | Reticulocyt | performed at [facility], [address] | | LAB | | | e Count | [address], | | | | | | [place] [address] | | | | + + + + + + + + | Specimen | + + | Blood specimen | | (specimen) | + + + +---------+ + + | Performing | Address | City/State/Zipcode | Phone Number | | Organization | | | | + +---------+ + + | EXTERNAL LAB | | | | + +---------+ + + External Lab: CBC (07/27/2017 4:50 AM PST) + + + + + + | Component | Value | Ref Range | Performed | Pathologist | | | | | At | Signature | + + + + + + | WBC | 4.60 | 3.80 - 11.00 | EXTERNAL | | | | | K/uL | LAB | | + + + + + + | Red Blood | 2.81 (L) | 4.20 - 5.70 | EXTERNAL | | | Cells | | M/uL | LAB | | | Counted | | | | | + + + + + + | Hemoglobin | 8.2 (L) | 13.2 - 17.0 | EXTERNAL | | | | | g/dL | LAB | | + + + + + + | Hematocrit, | 24.6 (L) | 39.0 - 50.0 % | EXTERNAL | | | POC | | | LAB | | + + + + + + | MCV | 87.5 | 80.0 - 100.0 fl | EXTERNAL | | | | | | LAB | | + + + + + + | MCH | 29.2 | 27.0 - 34.0 pg | EXTERNAL | | | | | | LAB | | + + + + + + | MCHC | 33.3 | 32.0 - 35.5 | EXTERNAL | | | | | g/dL | LAB | | + + + + + + | RDW-CV | 52.9 | 37 - 53 fl | EXTERNAL | | | | | | LAB | | + + + + + + | Platelet | 151 | 150 - 400 K/uL | EXTERNAL | | | Count | | | LAB | | | Plasma | | | | | + + + + + + | MPV | 8.3 | fl | EXTERNAL | | | | | | LAB | | + + + + + + | Differentia | AUTOMATED | | EXTERNAL | | | l Type | | | LAB | | + + + + + + | % Segmented | 71.31 | % | EXTERNAL | | | | | | LAB | | | Neutrophils | | | | | + + + + + + | % | 12.99 | % | EXTERNAL | | | Lymphocytes | | | LAB | | + + + + + + | % Monocytes | 9.44 | % | EXTERNAL | | | | | | LAB | | + + + + + + | % | 5.41 | % | EXTERNAL | | | Eosinophils | | | LAB | | + + + + + + | % Basophils | 0.85 | % | EXTERNAL | | | | | | LAB | | + + + + + + | Absolute | 3.28 | 1.90 - 7.40 | EXTERNAL | | | Segmented | | K/uL | LAB | | | Neutrophils | | | | | + + + + + + | Absolute | 0.60 (L) | 1.00 - 3.90 | EXTERNAL | | | Lymphocytes | | K/uL | LAB | | + + + + + + | Absolute | 0.43 | 0.00 - 0.80 | EXTERNAL | | | Monocytes | | K/uL | LAB | | + + + + + + | Absolute | 0.25 | 0.00 - 0.50 | EXTERNAL | | | Eosinophils | | K/uL | LAB | | + + + + + + | Absolute | 0.04Comment: Testing | 0.00 - 0.10 | EXTERNAL | | | Basophils | performed at [facility], [address] | [address] | LAB | | | | [address], | | | | | | [place] [address] | | | | + + + + + + + + | Specimen | + + | Blood specimen | | (specimen) | + + + +---------+ + + | Performing | Address | City/State/Zipcode | Phone Number | | Organization | | | | + +---------+ + + | EXTERNAL LAB | | | | + +---------+ + + Ferritin (07/27/2017 4:50 AM PST) + + + + + + | Component | Value | Ref Range | Performed | Pathologist | | | | | At | Signature | + + + + + + | Ferritin, | 23Comment: Testing | 11 - 450 ng/mL | EXTERNAL | | | External | performed at [facility], [address] | | LAB | | | | [address], | | | | | | [place] [address] | | | | + + + + + + + + | Specimen | + + | Blood specimen | | (specimen) | + + + +---------+ + + | Performing | Address | City/State/Zipcode | Phone Number | | Organization | | | | + +---------+ + + | EXTERNAL LAB | | | | + +---------+ + + Comprehensive Metabolic Panel (07/27/2017 4:50 AM PST) + + + + + + | Component | Value | Ref Range | Performed | Pathologist | | | | | At | Signature | + + + + + + | Na | 143 | 135 - 145 | EXTERNAL | | | | | mmol/L | LAB | | + + + + + + | K | 4.1 | 3.5 - 4.9 | EXTERNAL | | | | | mmol/L | LAB | | + + + + + + | Cl | 107 | 99 - 109 mmol/L | EXTERNAL | | | | | | LAB | | + + + + + + | CO2 | 26 | 23 - 32 mmol/L | EXTERNAL | | | | | | LAB | | + + + + + + | Anion Gap | 14 | 5 - 20 mmol/L | EXTERNAL | | | | | | LAB | | + + + + + + | Glucose, | 85 | 65 - 99 mg/dL | EXTERNAL | | | Fasting | | | LAB | | + + + + + + | BUN | 23 | 8 - 25 mg/dL | EXTERNAL | | | | | | LAB | | + + + + + + | Creatinine | 1.4 (H) | 0.70 - 1.30 | EXTERNAL | | | | | mg/dL | LAB | | + + + + + + | BUN/Creatin | 16 | | EXTERNAL | | | ine Ratio | | | LAB | | + + + + + + | Calcium | 8.7 | 8.5 - 10.5 | EXTERNAL | | | | | mg/dL | LAB | | + + + + + + | Protein, | 6.6 | 6.3 - 8.2 g/dL | EXTERNAL | | | Total | | | LAB | | + + + + + + | Albumin | 3.1 (L) | 3.3 - 4.8 g/dL | EXTERNAL | | | | | | LAB | | + + + + + + | Globulin | 3.5 | 1.3 - 4.9 g/dL | EXTERNAL | | | | | | LAB | | + + + + + + | A/G Ratio | 0.9 (L) | 1.0 - 2.4 | EXTERNAL | | | | | | LAB | | + + + + + + | Bilirubin | 0.6 | 0.1 - 1.5 mg/dL | EXTERNAL | | | Total | | | LAB | | + + + + + + | ALP, | 56 | 35 - 115 U/L | EXTERNAL | | | External | | | LAB | | + + + + + + | AST | 15 | 10 - 45 U/L | EXTERNAL | | | | | | LAB | | + + + + + + | ALT | 13 | 10 - 65 U/L | EXTERNAL | | | | | | LAB | | + + + + + + | Estimated | 51 (L)Comment: GFR <60: | mL/min/1.73m2 | EXTERNAL | | | GFR | CHRONIC KIDNEY DISEASE, | | LAB | | | | IF FOUND OVER A 3 MONTH | | | | | | PERIOD.GFR <15: KIDNEY | | | | | | FAILURE.FOR | | | | | | AMERICANS, MULTIPLY THE | | | | | | CALCULATED GFR BY | | | | | | 1.210.Testing performed | | | | | | at [facility], [address] | | | | | | [address], | | | | | | [place] [address] | | | | + + + + + + + + | Specimen | + + | Blood specimen | | (specimen) | + + + +---------+ + + | Performing | Address | City/State/Zipcode | Phone Number | | Organization | | | | + +---------+ + + | EXTERNAL LAB | | | | + +---------+ + + POC Glucose (07/26/2017 9:22 PM PST) + + + + + + | Component | Value | Ref Range | Performed | Pathologist | | | | | At | Signature | + + + + + + | Glucose, | 116 (H)Comment: Testing | 65 - 99 mg/dL | EXTERNAL | | | Fingerstick | performed at [facility];[address] | | LAB | | | | [address];[place] | | | | | | [address] | | | | + + + + + + + + | Specimen | + + | | + + + +---------+ + + | Performing | Address | City/State/Zipcode | Phone Number | | Organization | | | | + +---------+ + + | EXTERNAL LAB | | | | + +---------+ + + POC Glucose (07/26/2017 4:18 PM PST) + + + + + + | Component | Value | Ref Range | Performed | Pathologist | | | | | At | Signature | + + + + + + | Glucose, | 163 (H)Comment: Testing | 65 - 99 mg/dL | EXTERNAL | | | Fingerstick | performed at [facility];[address] | | LAB | | | | [address];[place] | | | | | | [address] | | | | + + + + + + + + | Specimen | + + | | + + + +---------+ + + | Performing | Address | City/State/Zipcode | Phone Number | | Organization | | | | + +---------+ + + | EXTERNAL LAB | | | | + +---------+ + + POC Glucose (07/26/2017 11:24 AM PST) + + + + + + | Component | Value | Ref Range | Performed | Pathologist | | | | | At | Signature | + + + + + + | Glucose, | 113 (H)Comment: Testing | 65 - 99 mg/dL | EXTERNAL | | | Fingerstick | performed at [facility];[address] | | LAB | | | | [address];[place] | | | | | | [address] | | | | + + + + + + + + | Specimen | + + | | + + + +---------+ + + | Performing | Address | City/State/Zipcode | Phone Number | | Organization | | | | + +---------+ + + | EXTERNAL LAB | | | | + +---------+ + + ECHO Complete (07/26/2017 10:11 AM PST) + + | Specimen | + + | | + + + + + | Impressions | Performed At | + + + | 1. Left ventricular systolic function is hyperdynamic with an | | | estimated EF of >70%. 2. There is mild concentric left ventricular | | | hypertrophy. 3. The left atrium is markedly dilated. 4. The right | | | ventricular systolic pressure (pulmonary artery systolic pressure), as | | | measured by Doppler, is 74.64mmHg. | | + + + + + + | Narrative | Performed At | + + + | Patient Name: Desiree Mcconnell Date of : 1930 | | | Performing Physician: JENNIFER SWAIN MD | | | | | | INDICATIONS shortness of breath CONCLUSIONS | | | 1. Left ventricular systolic function is hyperdynamic | | | with an estimated EF of >70%. 2. There is mild concentric left | | | ventricular hypertrophy. 3. The left atrium is markedly dilated. 4. | | | The right ventricular systolic pressure (pulmonary artery systolic | | | pressure), as measured by Doppler, is 74.64mmHg. FINDINGS | | | -------- ECG rhythm: Paced rhythm. Study: A 2-dimensional | | | transthoracic echocardiogram with m-mode, spectral and color flow | | | Doppler was perfomed. Study: This was a technically adequate study. | | | Left Ventricle: Left ventricular systolic function is hyperdynamic | | | with an estimated EF of >70%. Left Ventricle: The left ventricle | | | cavity size is normal. Left Ventricle: There is mild concentric left | | | ventricular hypertrophy. Left Ventricle: Pseudonormal LV diastolic | | | filling pattern, consistent with elevated LA pressure and moderate | | | dysfunction (Grade II). Right Ventricle: The right ventricle is | | | moderately enlarged measuring between 3.8 - 4.1 cm. Right Ventricle: | | | The right ventricular systolic function is normal. Left Atrium: The | | | left atrium is markedly dilated. Right Atrium: The right atrium is | | | moderately enlarged. Aortic Valve: There is mild aortic valve | | | sclerosis without stenosis. Aortic Valve: There is mild aortic | | | regurgitation. Aortic Valve: There is no evidence of aortic stenosis. | | | Mitral Valve: [id number] mitral regurgitation is present. | | | Mitral Valve: Mild mitral annular calcification present. Tricuspid | | | Valve: Moderate tricuspid regurgitation present. Tricuspid Valve: | | | There is severe pulmonary hypertension. Tricuspid Valve: The right | | | ventricular systolic pressure (pulmonary artery systolic pressure), as | | | measured by Doppler, is 74.64mmHg. Pulmonic Valve: The pulmonic | | | valve was not well visualized. Pulmonic Valve: Trace pulmonic | | | regurgitation. IVC/Hepatic Veins: The IVC is dilated (>2.5cm) and | | | does not collapse with sniff, consistent with central venous pressures | | | of >20mmHg. Aorta: The aortic root is dilated measuring 4.2cm. | | | MEASUREMENTS RA Area: 24.32 cm2 Ao asc: 3.75 cm | | | Ao sinus: 4.[address] junct: 2.71 cm IVC: 2.76 cm LA | | | Diam: 5.21 cm LA Major: 6.31 cm EDV(Teich): 90.72 ml IVSd: | | | 1.35 cm LVIDd: 4.46 cm LVPWd: 1.34 cm LVOT Diam: 2.29 | | | cm %FS: 28.84 % EF(Teich): 55.64 % ESV(Teich): 40.23 ml | | | IVSs: 1.30 cm LVIDs: 3.17 cm LVPWs: 1.86 cm SV(Teich): | | | 50.48 ml RA Major: 6.09 cm RVIDd: 3.94 cm LVEF MOD A2C: | | | 72.14 % SV MOD A2C: 84.03 ml LVEF MOD A4C: 75.18 % SV MOD | | | A4C: 54.43 ml EF Biplane: 68.29 % LVEDV MOD BP: 92.19 ml | | | LVESV MOD BP: 29.23 ml LVEDV MOD A2C: 116.47 ml LVLd A2C: | | | 7.52 cm LVEDV MOD A4C: 72.39 ml LVLd A4C: 7.56 cm LVESV MOD | | | A2C: 32.44 ml LVLs A2C: 5.62 cm LVESV MOD A4C: 17.96 ml | | | LVLs A4C: 6.44 cm CO Biplane: 3.88 l/min HR: 61.63 BPM | | | R-R: 973.47 ms LAESV(A-L): 99.35 ml LAAs A2C: 27.25 cm2 | | | LAESV A-L A2C: 99.85 ml LAESV MOD A2C: 93.96 ml LALs A2C: | | | 6.31 cm LAAs A4C: 26.56 cm2 LAESV A-L A4C: 96.85 ml LAESV MOD | | | A4C: 88.08 ml LALs A4C: 6.18 cm TAPSE: 1.88 cm AR Dec | | | [place]: 2.33 m/s2 AR Dec Time: 1398.10 ms AR maxP.73 | | | mmHg AR PHT: 405.45 ms AR Vmax: 3.26 m/s HR: 64.46 BPM AV | | | maxP.44 mmHg AV meanP.16 mmHg AV Vmax: 1.36 m/s | | | AV Vmean: 0.98 m/s AV VTI: 29.20 cm JACLYN Vmax: 2.97 cm2 JACLYN | | | (VTI): 2.95 cm2 LVCO Dopp: 5.01 l/min HR: 58.18 BPM LVOT | | | maxP.84 mmHg LVOT meanP.84 mmHg LVSV Dopp: 86.20 ml | | | LVOT Vmax: 0.97 m/s LVOT Vmean: 0.64 m/s LVOT VTI: 20.83 | | | cm MCO: 647.05 ms MR maxP.64 mmHg MR Vmax: 4.40 m/s | | | MV A Good: 0.34 m/s MV DecT: 148.08 ms MV E Good: 0.89 m/s | | | MV E/A Ratio: 2.62 MV PHT: 47.71 ms MVA By PHT: 4.61 cm2 | | | MV A Dur: 134.94 ms Septal e': 0.05 m/s Septal E/e': 16.46 | | | Lateral e': 0.12 m/s Lateral E/e': 7.26 P Vein D: 0.42 m/s | | | P Vein S/D Ratio: 1.05 P Vein S: 0.45 m/s PAEDP: 21.97 | | | mmHg PRend P.97 mmHg PRend Vmax: 1.32 m/s HR: 60.62 | | | BPM PV maxP.51 mmHg PV meanP.74 mmHg PV Vmax: 0.93 | | | m/s PV Vmean: 0.61 m/s PV VTI: 15.11 cm RAP: 15 mmHg RV | | | S': 3.72 m/s RVSP: 74.64 mmHg TR maxP.64 mmHg TR | | | Vmax: 3.86 m/s TV A Good: 0.32 m/s TV Dec [place]: 2.31 m/s2 | | | TV Dec Time: 215.03 ms TV E Good: 0.49 m/s TV E/A Ratio: | | | 1.53 Licensed Pesticide Applicator: DOMITILA Authenticated by: JENNIFER SWAIN MD | | | Report Date/Time: -- [id number] | | + + + + + | Procedure Note | + + | Leonides Bullock Conversion - 04/03/2019 7:51 PM PDT Patient Name: Yuriy Mcconnell | | : 1930 Performing Physician: JENNIFER SWAIN | | MD INDICATIONS s | | hortness of breath CONCLUSIONS 1. Left ventricular systolic function is | | hyperdynamic with an estimated EF of >70%.2. There is mild concentric left ventricular | | hypertrophy.3. The left atrium is markedly dilated.4. The right ventricular systolic | | pressure (pulmonary artery systolic pressure), as measured by Doppler, is 74.64mmHg. | | FINDINGS--------ECG rhythm: Paced rhythm.Study: A 2-dimensional transthoracic | | echocardiogram with m-mode, spectral and color flow Doppler was perfomed.Study: This was | | a technically adequate study.Left Ventricle: Left ventricular systolic function is | | hyperdynamic with an estimated EF of >70%.Left Ventricle: The left ventricle cavity size | | is normal.Left Ventricle: There is mild concentric left ventricular hypertrophy.Left | | Ventricle: Pseudonormal LV diastolic filling pattern, consistent with elevated LA | | pressure and moderate dysfunction (Grade II).Right Ventricle: The right ventricle is | | moderately enlarged measuring between 3.8 - 4.1 cm.Right Ventricle: The right | | ventricular systolic function is normal.Left Atrium: The left atrium is markedly | | dilated.Right Atrium: The right atrium is moderately enlarged.Aortic Valve: There is | | mild aortic valve sclerosis without stenosis.Aortic Valve: There is mild aortic | | regurgitation.Aortic Valve: There is no evidence of aortic stenosis.Mitral Valve: | | [id number] mitral regurgitation is present.Mitral Valve: Mild mitral annular | | calcification present.Tricuspid Valve: Moderate tricuspid regurgitation | | present.Tricuspid Valve: There is severe pulmonary hypertension.Tricuspid Valve: The | | right ventricular systolic pressure (pulmonary artery systolic pressure), as measured by | | Doppler, is 74.64mmHg.Pulmonic Valve: The pulmonic valve was not well | | visualized.Pulmonic Valve: Trace pulmonic regurgitation.IVC/Hepatic Veins: The IVC is | | dilated (>2.5cm) and does not collapse with sniff, consistent with central venous | | pressures of >20mmHg.Aorta: The aortic root is dilated measuring 4.2cm. | | MEASUREMENTS RA Area: 24.32 cm2Ao asc: 3.75 cmAo sinus: 4.[address] | | junct: 2.71 cmIVC: 2.76 cmLA Diam: 5.21 cmLA Major: 6.31 cmEDV(Teich): 90.72 | | mlIVSd: 1.35 cmLVIDd: 4.46 cmLVPWd: 1.34 cmLVOT Diam: 2.29 cm%FS: 28.84 | | %EF(Teich): 55.64 %ESV(Teich): 40.23 mlIVSs: 1.30 cmLVIDs: 3.17 cmLVPWs: 1.86 | | cmSV(Teich): 50.48 mlRA Major: 6.09 cmRVIDd: 3.94 cmLVEF MOD A2C: 72.14 %SV MOD | | A2C: 84.03 mlLVEF MOD A4C: 75.18 %SV MOD A4C: 54.43 mlEF Biplane: 68.29 %LVEDV | | MOD BP: 92.19 mlLVESV MOD BP: 29.23 mlLVEDV MOD A2C: 116.47 mlLVLd A2C: 7.52 | | cmLVEDV MOD A4C: 72.39 mlLVLd A4C: 7.56 cmLVESV MOD A2C: 32.44 mlLVLs A2C: 5.62 | | cmLVESV MOD A4C: 17.96 mlLVLs A4C: 6.44 cmCO Biplane: 3.88 l/minHR: 61.63 | | BPMR-R: 973.47 msLAESV(A-L): 99.35 mlLAAs A2C: 27.25 [id number] A-L A2C: 99.85 | | mlLAESV MOD A2C: 93.96 mlLALs A2C: 6.31 cmLAAs A4C: 26.56 [id number] A-L A4C: | | 96.85 mlLAESV MOD A4C: 88.08 mlLALs A4C: 6.18 cmTAPSE: 1.88 cmAR Dec [place]: 2.33 | | m/s2AR Dec Time: 1398.10 msAR maxP.73 mmHgAR PHT: 405.45 msAR Vmax: 3.26 | | m/sHR: 64.46 BPMAV maxP.44 mmHgAV meanP.16 mmHgAV Vmax: 1.36 m/Armen | | Vmean: 0.98 m/Armen VTI: 29.20 cmAVA Vmax: 2.97 cm2AVA (VTI): 2.95 [id number] Dopp: | | 5.01 l/minHR: 58.18 BPMLVOT maxP.84 mmHgLVOT meanP.84 mmHgLVSV Dopp: | | 86.20 mlLVOT Vmax: 0.97 m/sLVOT Vmean: 0.64 m/sLVOT VTI: 20.83 cmMCO: 647.05 | | msMR maxP.64 mmHgMR Vmax: 4.40 m/sMV A Good: 0.34 m/sMV DecT: 148.08 msMV E | | Good: 0.89 m/sMV E/A Ratio: 2.62MV PHT: 47.71 msMVA By PHT: 4.61 cm2MV A Dur: | | 134.94 msSeptal e': 0.05 m/sSeptal E/e': 16.46Lateral e': 0.12 m/sLateral E/e': | | 7.26P Vein D: 0.42 m/sP Vein S/D Ratio: 1.05P Vein S: 0.45 m/sPAEDP: 21.97 | | mmHgPRend P.97 mmHgPRend Vmax: 1.32 m/sHR: 60.62 BPMPV maxP.51 mmHgPV | | meanP.74 mmHgPV Vmax: 0.93 m/sPV Vmean: 0.61 m/sPV VTI: 15.11 cmRAP: 15 | | mmHgRV S': 3.72 m/sRVSP: 74.64 mmHgTR maxP.64 mmHgTR Vmax: 3.86 m/sTV A | | Good: 0.32 m/sTV Dec [place]: 2.31 m/s2TV Dec Time: 215.03 msTV E Good: 0.49 m/sTV | | E/A Ratio: 1.53 Licensed Pesticide Applicator: Sandyticated by: JENNIFER Ward | | Date/Time: -- [id number] IMPRESSION: 1. Left ventricular systolic function is | | hyperdynamic with an estimated EF of >70%.2. There is mild concentric left ventricular | | hypertrophy.3. The left atrium is markedly dilated.4. The right ventricular systolic | | pressure (pulmonary artery systolic pressure), as measured by Doppler, is 74.64mmHg. | |LVPWd: 1.34 cm | |LVOT Diam: 2.29 cm | |%FS: 28.84 % | |EF(Teich): 55.64 % | |ESV(Teich): 40.23 ml | |IVSs: 1.30 cm | |LVIDs: 3.17 cm | |LVPWs: 1.86 cm | |SV(Teich): 50.48 ml | |RA Major: 6.09 cm | |RVIDd: 3.94 cm | |LVEF MOD A2C: 72.14 % | |SV MOD A2C: 84.03 ml | |LVEF MOD A4C: 75.18 % | |SV MOD A4C: 54.43 ml | |EF Biplane: 68.29 % | |LVEDV MOD BP: 92.19 ml | |LVESV MOD BP: 29.23 ml | |LVEDV MOD A2C: 116.47 ml | |LVLd A2C: 7.52 cm | |LVEDV MOD A4C: 72.39 ml | |LVLd A4C: 7.56 cm | |LVESV MOD A2C: 32.44 ml | |LVLs A2C: 5.62 cm | |LVESV MOD A4C: 17.96 ml | |LVLs A4C: 6.44 cm | |CO Biplane: 3.88 l/min | |HR: 61.63 BPM | |R-R: 973.47 ms | |LAESV(A-L): 99.35 ml | |LAAs A2C: 27.25 cm2 | |LAESV A-L A2C: 99.85 ml | |LAESV MOD A2C: 93.96 ml | |LALs A2C: 6.31 cm | |LAAs A4C: 26.56 cm2 | |LAESV A-L A4C: 96.85 ml | |LAESV MOD A4C: 88.08 ml | |LALs A4C: 6.18 cm | |TAPSE: 1.88 cm | |AR Dec [place]: 2.33 m/s2 | |AR Dec Time: 1398.10 ms | |AR maxP.73 mmHg | |AR PHT: 405.45 ms | |AR Vmax: 3.26 m/s | |HR: 64.46 BPM | |AV maxP.44 mmHg | |AV meanP.16 mmHg | |AV Vmax: 1.36 m/s | |AV Vmean: 0.98 m/s | |AV VTI: 29.20 cm | |JACLYN Vmax: 2.97 cm2 | |JACLYN (VTI): 2.95 cm2 | |LVCO Dopp: 5.01 l/min | |HR: 58.18 BPM | |LVOT maxP.84 mmHg | |LVOT meanP.84 mmHg | |LVSV Dopp: 86.20 ml | |LVOT Vmax: 0.97 m/s | |LVOT Vmean: 0.64 m/s | |LVOT VTI: 20.83 cm | |MCO: 647.05 ms | |MR maxP.64 mmHg | |MR Vmax: 4.40 m/s | |MV A Good: 0.34 m/s | |MV DecT: 148.08 ms | |MV E Good: 0.89 m/s | |MV E/A Ratio: 2.62 | |MV PHT: 47.71 ms | |MVA By PHT: 4.61 cm2 | |MV A Dur: 134.94 ms | |Septal e': 0.05 m/s | |Septal E/e': 16.46 | |Lateral e': 0.12 m/s | |Lateral E/e': 7.26 | |P Vein D: 0.42 m/s | |P Vein S/D Ratio: 1.05 | |P Vein S: 0.45 m/s | |PAEDP: 21.97 mmHg | |PRend P.97 mmHg | |PRend Vmax: 1.32 m/s | |HR: 60.62 BPM | |PV maxP.51 mmHg | |PV meanP.74 mmHg | |PV Vmax: 0.93 m/s | |PV Vmean: 0.61 m/s | |PV VTI: 15.11 cm | |RAP: 15 mmHg | |RV S': 3.72 m/s | |RVSP: 74.64 mmHg | |TR maxP.64 mmHg | |TR Vmax: 3.86 m/s | |TV A Good: 0.32 m/s | |TV Dec [place]: 2.31 m/s2 | |TV Dec Time: 215.03 ms | |TV E Good: 0.49 m/s | |TV E/A Ratio: 1.53 | | | |Licensed Pesticide Applicator: GD | |Authenticated by: JENNIFER SWAIN MD | |Report Date/Time: -- [id number] | | | |IMPRESSION: | |1. Left ventricular systolic function is hyperdynamic with an estimated EF of >70%. | |2. There is mild concentric left ventricular hypertrophy. | |3. The left atrium is markedly dilated. | |4. The right ventricular systolic pressure (pulmonary artery systolic pressure), as measure d by Doppler, is 74.64mmHg. | + + POC Glucose (07/26/2017 6:19 AM PST) + + + + + + | Component | Value | Ref Range | Performed | Pathologist | | | | | At | Signature | + + + + + + | Glucose, | 97Comment: Testing | 65 - 99 mg/dL | EXTERNAL | | | Fingerstick | performed at [facility];[address] | | LAB | | | | [address];[place] | | | | | | [address] | | | | + + + + + + + + | Specimen | + + | | + + + +---------+ + + | Performing | Address | City/State/Zipcode | Phone Number | | Organization | | | | + +---------+ + + | EXTERNAL LAB | | | | + +---------+ + + Protime INR (07/26/2017 4:13 AM PST) + + + + + + | Component | Value | Ref Range | Performed | Pathologist | | | | | At | Signature | + + + + + + | INR | 2.4Comment: REFERENCE | | EXTERNAL | | | | RANGE:0.9 - 1.2 | | LAB | | | | NON-ANTICOAGULATED2.0 | | | | | | - 3.0 ALL OTHER | | | | | | THERAPEUTIC | | | | | | INDICATIONS2.5 - 3.5 | | | | | | MECHANICAL HEART VALVES, | | | | | | RECURRENT OR SYSTEMIC | | | | | | EMBOLISMTesting | | | | | | performed at [facility];[address] | | | | | | [address];[place], [place] | | | | | | [address] | | | | + + + + + + + + | Specimen | + + | Blood specimen | | (specimen) | + + + +---------+ + + | Performing | Address | City/State/Zipcode | Phone Number | | Organization | | | | + +---------+ + + | EXTERNAL LAB | | | | + +---------+ + + External Lab: CBC (07/26/2017 4:13 AM PST) + + + + + + | Component | Value | Ref Range | Performed | Pathologist | | | | | At | Signature | + + + + + + | WBC | 4.64 | 3.80 - 11.00 | EXTERNAL | | | | | K/uL | LAB | | + + + + + + | Red Blood | 2.76 (L) | 4.20 - 5.70 | EXTERNAL | | | Cells | | M/uL | LAB | | | Counted | | | | | + + + + + + | Hemoglobin | 8.1 (L) | 13.2 - 17.0 | EXTERNAL | | | | | g/dL | LAB | | + + + + + + | Hematocrit, | 24.3 (L) | 39.0 - 50.0 % | EXTERNAL | | | POC | | | LAB | | + + + + + + | MCV | 88.1 | 80.0 - 100.0 fl | EXTERNAL | | | | | | LAB | | + + + + + + | MCH | 29.4 | 27.0 - 34.0 pg | EXTERNAL | | | | | | LAB | | + + + + + + | MCHC | 33.3 | 32.0 - 35.5 | EXTERNAL | | | | | g/dL | LAB | | + + + + + + | RDW-CV | 53.8 (H) | 37 - 53 fl | EXTERNAL | | | | | | LAB | | + + + + + + | Platelet | 150 | 150 - 400 K/uL | EXTERNAL | | | Count | | | LAB | | | Plasma | | | | | + + + + + + | MPV | 8.6 | fl | EXTERNAL | | | | | | LAB | | + + + + + + | Differentia | AUTOMATED | | EXTERNAL | | | l Type | | | LAB | | + + + + + + | % Segmented | 65.86 | % | EXTERNAL | | | | | | LAB | | | Neutrophils | | | | | + + + + + + | % | 16.77 | % | EXTERNAL | | | Lymphocytes | | | LAB | | + + + + + + | % Monocytes | 11.19 | % | EXTERNAL | | | | | | LAB | | + + + + + + | % | 5.19 | % | EXTERNAL | | | Eosinophils | | | LAB | | + + + + + + | % Basophils | 0.99 | % | EXTERNAL | | | | | | LAB | | + + + + + + | Absolute | 3.05 | 1.90 - 7.40 | EXTERNAL | | | Segmented | | K/uL | LAB | | | Neutrophils | | | | | + + + + + + | Absolute | 0.78 (L) | 1.00 - 3.90 | EXTERNAL | | | Lymphocytes | | K/uL | LAB | | + + + + + + | Absolute | 0.52 | 0.00 - 0.80 | EXTERNAL | | | Monocytes | | K/uL | LAB | | + + + + + + | Absolute | 0.24 | 0.00 - 0.50 | EXTERNAL | | | Eosinophils | | K/uL | LAB | | + + + + + + | Absolute | 0.05Comment: Testing | 0.00 - 0.10 | EXTERNAL | | | Basophils | performed at [facility], [address] | K/uL | LAB | | | | [address], | | | | | | [place] [address] | | | | + + + + + + + + | Specimen | + + | Blood specimen | | (specimen) | + + + +---------+ + + | Performing | Address | City/State/Zipcode | Phone Number | | Organization | | | | + +---------+ + + | EXTERNAL LAB | | | | + +---------+ + + TSH (07/26/2017 4:13 AM PST) + + + + + + | Component | Value | Ref Range | Performed | Pathologist | | | | | At | Signature | + + + + + + | TSH | 5.82 (H)Comment: Testing | 0.45 - 5.10 | EXTERNAL | | | | performed at [facility], [address] | uIU/mL | LAB | | | | [address], | | | | | | [place] [address] | | | | + + + + + + + + | Specimen | + + | Blood specimen | | (specimen) | + + + +---------+ + + | Performing | Address | City/State/Zipcode | Phone Number | | Organization | | | | + +---------+ + + | EXTERNAL LAB | | | | + +---------+ + + Phosphorus (07/26/2017 4:13 AM PST) + + + + + + | Component | Value | Ref Range | Performed | Pathologist | | | | | At | Signature | + + + + + + | PHOSPHORUS | 4.0Comment: Testing | 2.3 - 4.8 mg/dL | EXTERNAL | | | | performed at [facility], [address] | | LAB | | | | [address], | | | | | | [place] [address] | | | | + + + + + + + + | Specimen | + + | Blood specimen | | (specimen) | + + + +---------+ + + | Performing | Address | City/State/Zipcode | Phone Number | | Organization | | | | + +---------+ + + | EXTERNAL LAB | | | | + +---------+ + + B Type Natriuretic Peptide (07/26/2017 4:13 AM PST) + + + + + + | Component | Value | Ref Range | Performed | Pathologist | | | | | At | Signature | + + + + + + | BNP | 506 (H)Comment: Testing | 0 - 100 pg/mL | EXTERNAL | | | | performed at [facility];[address] | | LAB | | | | [address];[place] | | | | | | [address] | | | | + + + + + + + + | Specimen | + + | Blood specimen | | (specimen) | + + + +---------+ + + | Performing | Address | City/State/Zipcode | Phone Number | | Organization | | | | + +---------+ + + | EXTERNAL LAB | | | | + +---------+ + + Magnesium (07/26/2017 4:13 AM PST) + + + + + + | Component | Value | Ref Range | Performed | Pathologist | | | | | At | Signature | + + + + + + | Magnesium | 2.2Comment: Testing | 1.7 - 2.4 mg/dL | EXTERNAL | | | | performed at [facility], [address] | | LAB | | | | [address], | | | | | | [place] [address] | | | | + + + + + + + + | Specimen | + + | Blood specimen | | (specimen) | + + + +---------+ + + | Performing | Address | City/State/Zipcode | Phone Number | | Organization | | | | + +---------+ + + | EXTERNAL LAB | | | | + +---------+ + + Hemoglobin A1C (07/26/2017 4:13 AM PST) + + + + + + | Component | Value | Ref Range | Performed | Pathologist | | | | | At | Signature | + + + + + + | Hemoglobin | 5.5Comment: The [place] | 4.0 - 6.0 % | EXTERNAL | | | A1c | Diabetes Association | | LAB | | | | considers a hemoglobin | | | | | | A1c result of <7.0% to | | | | | | be the goal of diabetic | | | | | | therapy. When results | | | | | | are consistently >8.0%, | | | | | | the ADA suggests | | | | | | reevaluation of the | | | | | | treatment regimen. The | | | | | | testing method used is | | | | | | certified traceable to | | | | | | the Diabetes Control and | | | | | | Complications Trial | | | | | | reference method. | | | | + + + + + + | Glycohemogl | 111Comment: The ADA | mg/dL | EXTERNAL | | | obin | considers an eAG result | | LAB | | | (GHb),Total | of LT 154 mg/dL to be | | | | | | the goal of diabetic | | | | | | therapy. Estimated | | | | | | Average Glucose | | | | | | calculated from | | | | | | hemoglobin A1c by use of | | | | | | the ADA recommended | | | | | | formula.Testing | | | | | | performed at [facility], [address] | | | | | | [address], | | | | | | [place] [address] | | | | + + + + + + + + | Specimen | + + | Blood specimen | | (specimen) | + + + +---------+ + + | Performing | Address | City/State/Zipcode | Phone Number | | Organization | | | | + +---------+ + + | EXTERNAL LAB | | | | + +---------+ + + Comprehensive Metabolic Panel (07/26/2017 4:13 AM PST) + + + + + + | Component | Value | Ref Range | Performed | Pathologist | | | | | At | Signature | + + + + + + | Na | 140 | 135 - 145 | EXTERNAL | | | | | mmol/L | LAB | | + + + + + + | K | 4.4 | 3.5 - 4.9 | EXTERNAL | | | | | mmol/L | LAB | | + + + + + + | Cl | 106 | 99 - 109 mmol/L | EXTERNAL | | | | | | LAB | | + + + + + + | CO2 | 26 | 23 - 32 mmol/L | EXTERNAL | | | | | | LAB | | + + + + + + | Anion Gap | 12 | 5 - 20 mmol/L | EXTERNAL | | | | | | LAB | | + + + + + + | Glucose, | 88 | 65 - 99 mg/dL | EXTERNAL | | | Fasting | | | LAB | | + + + + + + | BUN | 21 | 8 - 25 mg/dL | EXTERNAL | | | | | | LAB | | + + + + + + | Creatinine | 1.5 (H) | 0.70 - 1.30 | EXTERNAL | | | | | mg/dL | LAB | | + + + + + + | BUN/Creatin | 14 | | EXTERNAL | | | ine Ratio | | | LAB | | + + + + + + | Calcium | 8.6 | 8.5 - 10.5 | EXTERNAL | | | | | mg/dL | LAB | | + + + + + + | Protein, | 6.7 | 6.3 - 8.2 g/dL | EXTERNAL | | | Total | | | LAB | | + + + + + + | Albumin | 3.0 (L) | 3.3 - 4.8 g/dL | EXTERNAL | | | | | | LAB | | + + + + + + | Globulin | 3.7 | 1.3 - 4.9 g/dL | EXTERNAL | | | | | | LAB | | + + + + + + | A/G Ratio | 0.8 (L) | 1.0 - 2.4 | EXTERNAL | | | | | | LAB | | + + + + + + | Bilirubin | 0.6 | 0.1 - 1.5 mg/dL | EXTERNAL | | | Total | | | LAB | | + + + + + + | ALP, | 53 | 35 - 115 U/L | EXTERNAL | | | External | | | LAB | | + + + + + + | AST | 13 | 10 - 45 U/L | EXTERNAL | | | | | | LAB | | + + + + + + | ALT | 14 | 10 - 65 U/L | EXTERNAL | | | | | | LAB | | + + + + + + | Estimated | 47 (L)Comment: GFR <60: | mL/min/1.73m2 | EXTERNAL | | | GFR | CHRONIC KIDNEY DISEASE, | | LAB | | | | IF FOUND OVER A 3 MONTH | | | | | | PERIOD.GFR <15: KIDNEY | | | | | | FAILURE.FOR | | | | | | AMERICANS, MULTIPLY THE | | | | | | CALCULATED GFR BY | | | | | | 1.210.Testing performed | | | | | | at [facility], [address] | | | | | | [address], | | | | | | [place] [address] | | | | + + + + + + + + | Specimen | + + | Blood specimen | | (specimen) | + + + +---------+ + + | Performing | Address | City/State/Zipcode | Phone Number | | Organization | | | | + +---------+ + + | EXTERNAL LAB | | | | + +---------+ + + Troponin I (07/26/2017 12:01 AM PST) + + + + + + | Component | Value | Ref Range | Performed | Pathologist | | | | | At | Signature | + + + + + + | Troponin I, | <0.020Comment: 0.00 to | 0.00 - 0.10 | EXTERNAL | | | Qual | 0.10 CONSISTENT WITH | ng/mL | LAB | | | | NORMAL POPULATION0.11 | | | | | | to 0.60 CONSISTENT | | | | | | WITH INCREASED RISK FOR | | | | | | ADVERSE OUTCOMES> 0.60 | | | | | | CONSISTENT | | | | | | WITH WHO CRITERIA FOR | | | | | | ACUTE [place] Testing | | | | | | performed at [facility];[address] | | | | | | [address];[place] | | | | | | [address] | | | | + + + + + + + + | Specimen | + + | Blood specimen | | (specimen) | + + + +---------+ + + | Performing | Address | City/State/Zipcode | Phone Number | | Organization | | | | + +---------+ + + | EXTERNAL LAB | | | | + +---------+ + + POC Glucose (07/25/2017 9:32 PM PST) + + + + + + | Component | Value | Ref Range | Performed | Pathologist | | | | | At | Signature | + + + + + + | Glucose, | 105 (H)Comment: Testing | 65 - 99 mg/dL | EXTERNAL | | | Fingerstick | performed at [facility];[address] | | LAB | | | [address];[place], [place] | | | | | | [address] | | | | + + + + + + + + | Specimen | + + | | + + + +---------+ + + | Performing | Address | City/State/Zipcode | Phone Number | | Organization | | | | + +---------+ + + | EXTERNAL LAB | | | | + +---------+ + + Troponin I (07/25/2017 6:28 PM PST) + + + + + + | Component | Value | Ref Range | Performed | Pathologist | | | | | At | Signature | + + + + + + | Troponin I, | <0.020Comment: 0.00 to | 0.00 - 0.10 | EXTERNAL | | | Qual | 0.10 CONSISTENT WITH | ng/mL | LAB | | | | NORMAL POPULATION0.11 | | | | | | to 0.60 CONSISTENT | | | | | | WITH INCREASED RISK FOR | | | | | | ADVERSE OUTCOMES> 0.60 | | | | | | CONSISTENT | | | | | | WITH WHO CRITERIA FOR | | | | | | ACUTE [place] Testing | | | | | | performed at [facility];[address] | | | | | | [address];[place], [place] | | | | | | [address] | | | | + + + + + + + + | Specimen | + + | Blood specimen | | (specimen) | + + + +---------+ + + | Performing | Address | City/State/Zipcode | Phone Number | | Organization | | | | + +---------+ + + | EXTERNAL LAB | | | | + +---------+ + + POC Glucose (07/25/2017 4:19 PM PST) + + + + + + | Component | Value | Ref Range | Performed | Pathologist | | | | | At | Signature | + + + + + + | Glucose, | 124 (H)Comment: Testing | 65 - 99 mg/dL | EXTERNAL | | | Fingerstick | performed at [facility];[address] | | LAB | | | | [address];[place] | | | | | | [address] | | | | + + + + + + + + | Specimen | + + | | + + + +---------+ + + | Performing | Address | City/State/Zipcode | Phone Number | | Organization | | | | + +---------+ + + | EXTERNAL LAB | | | | + +---------+ + + VAS Lower Extremity Venous Bilateral (07/25/2017 1:30 PM PST) + + | Specimen | + + | | + + + + + | Impressions | Performed At | + + + | 1. No definitive evidence of lower extremity deep vein thrombosis. | | | | | + + + + + + | Narrative | Performed At | + + + | [facility] LOWER EXTREMITY VENOUS DOPPLER BILAT 07/25/2017 | | | 1:30 PM HISTORY: 87 years. Male. Bilateral leg swelling | | | TECHNIQUE: Bilateral lower extremity venous Doppler performed with | | | color Doppler and spectral Doppler waveform analysis. Duplex Doppler | | | analysis. COMPARISON: None. FINDINGS: Normal | | | compressibility, augmentation of flow, and Doppler flow evident within | | | the deep venous system on the right from the common femoral vein to | | | the popliteal vein, and on the left from the common femoral vein to | | | the level of the posterior tibial and peroneal veins in the left | | | calf. No definitive color flow seen in the right peroneal and | | | posterior tibialis vein, with complete vessel compressibility noted. | | | | | + + + + + | Procedure Note | + + | Kobe, Rad Conversion - 04/03/2019 7:51 PM PDT [facility] QUIROS LOWER EXTREMITY | | VENOUS DOPPLER BILAT109/25/2016 1:30 PM HISTORY:87 years. Male. Bilateral leg swelling | | TECHNIQUE:Bilateral lower extremity venous Doppler performed with color Doppler and | | spectral Doppler waveform analysis. Duplex Doppler analysis. COMPARISON:None. | | FINDINGS:Normal compressibility, augmentation of flow, and Doppler flow evident within | | the deep venous system on the right from the common femoral vein to the popliteal vein, | | and on the left from the common femoral vein to the level of the posterior tibial and | | peroneal veins in the left calf. No definitive color flow seen in the right peroneal and | | posterior tibialis vein, with complete vessel compressibility noted. IMPRESSION: 1. No | | definitive evidence of lower extremity deep vein thrombosis. | |None. | | | |FINDINGS: | |Normal compressibility, augmentation of flow, and Doppler flow evident within the deep veno us system on the right from the common femoral vein to the popliteal vein, and on the left f rom the common femoral vein to the level of the posterior tibial and | |peroneal veins in the left calf. No definitive color flow seen in the right peroneal and po sterior tibialis vein, with complete vessel compressibility noted. | | | |IMPRESSION: | |1. No definitive evidence of lower extremity deep vein thrombosis. | | | | | + + XR Chest 2 Vws (07/25/2017 11:18 AM PST) + + | Specimen | + + | | + + + + + | Impressions | Performed At | + + + | 1. Findings suggestive of mild pulmonary edema. Electronically | | | signed by Kb Hill MD on 07/25/2017 11:27 AM | | + + + + + + | Narrative | Performed At | + + + | [facility] 1930 87 [facility] XR CHEST 2 VIEW FRONTAL | | | AND LATERAL 07/25/2017 11:18 AM INDICATION: Shortness of breath | | | COMPARISON: None. TECHNIQUE: Two view chest, PA and lateral | | | views FINDINGS: The patient has a right anterior chest wall pacer | | | with a single lead. The cardiomediastinal contours are normal. There | | | is moderate calcification of the aortic arch. There is no | | | pneumothorax. Mild vascular congestion is present. Hazy opacities of | | | the lower lung bilaterally probably reflect atelectasis. Generalized | | | osteopenia is noted. There appear to be bilateral small layering | | | pleural effusions. | | + + + + + | Procedure Note | + + | Kobe, Rad Conversion - 04/03/2019 7:51 PM PDT DESIREE A [id number] years MaleXR | | CHEST 2 VIEW FRONTAL AND RQOLSMH98/5/2017 11:18 AM INDICATION: Shortness of breath | | COMPARISON: None. TECHNIQUE: Two view chest, PA and lateral views FINDINGS: The patient | | has a right anterior chest wall pacer with a single lead. The cardiomediastinal contours | | are normal. There is moderate calcification of the aortic arch. There is no | | pneumothorax. Mild vascular congestion is present. Hazy opacities of the lower lung | | bilaterally probably reflect atelectasis. Generalized osteopenia is noted. There appear | | to be bilateral small layering pleural effusions. IMPRESSION: 1. Findings suggestive of | | mild pulmonary edema. | | AM | |TECHNIQUE: Two view chest, PA and lateral views | | | |FINDINGS: The patient has a right anterior chest wall pacer with a single lead. The cardiom ediastinal contours are normal. There is moderate calcification of the aortic arch. There is no pneumothorax. Mild vascular | |congestion is present. Hazy opacities | |of the lower lung bilaterally probably reflect atelectasis. Generalized osteopenia is noted . There appear to be bilateral small layering pleural effusions. | | | |IMPRESSION: | |1. Findings suggestive of mild pulmonary edema. | | | | | + + HISTORICAL LAB PANEL RESULT (07/25/2017 10:51 AM PST) + + + + + -+ | Component | Value | Ref Range | Performed | Pathologist | | | | | At | Signature | + + + + + -+ | WBC | 5.40 | 3.80 - 11.00 | EXTERNAL | | | | | K/uL | LAB | | + + + + + -+ | Red Blood | 3.08 (L) | 4.20 - 5.70 | EXTERNAL | | | Cells | | M/uL | LAB | | | Counted | | | | | + + + + + -+ | Hemoglobin | 8.6 (L) | 13.2 - 17.0 | EXTERNAL | | | | | g/dL | LAB | | + + + + + -+ | Hematocrit, | 27.1 (L) | 39.0 - 50.0 % | EXTERNAL | | | POC | | | LAB | | + + + + + -+ | MCV | 88.0 | 80.0 - 100.0 fl | EXTERNAL | | | | | | LAB | | + + + + + -+ | MCH | 28.1 | 27.0 - 34.0 pg | EXTERNAL | | | | | | LAB | | + + + + + -+ | MCHC | 31.9 (L) | 32.0 - 35.5 | EXTERNAL | | | | | g/dL | LAB | | + + + + + -+ | RDW-CV | 53.4 (H) | 37 - 53 fl | EXTERNAL | | | | | | LAB | | + + + + + -+ | Platelet | 156 | 150 - 400 K/uL | EXTERNAL | | | Count | | | LAB | | | Plasma | | | | | + + + + + -+ | MPV | 8.0 | fl | EXTERNAL | | | | | | LAB | | + + + + + -+ | Differentia | AUTOMATED | | EXTERNAL | | | l Type | | | LAB | | + + + + + -+ | % Segmented | 78.19 | % | EXTERNAL | | | | | | LAB | | | Neutrophils | | | | | + + + + + -+ | % | 10.28 | % | EXTERNAL | | | Lymphocytes | | | LAB | | + + + + + -+ | % Monocytes | 8.98 | % | EXTERNAL | | | | | | LAB | | + + + + + -+ | % | 1.60 | % | EXTERNAL | | | Eosinophils | | | LAB | | + + + + + -+ | % Basophils | 0.95 | % | EXTERNAL | | | | | | LAB | | + + + + + -+ | Absolute | 4.22 | 1.90 - 7.40 | EXTERNAL | | | Segmented | | K/uL | LAB | | | Neutrophils | | | | | + + + + + -+ | Absolute | 0.56 (L) | 1.00 - 3.90 | EXTERNAL | | | Lymphocytes | | K/uL | LAB | | + + + + + -+ | Absolute | 0.49 | 0.00 - 0.80 | EXTERNAL | | | Monocytes | | K/uL | LAB | | + + + + + -+ | Absolute | 0.09 | 0.00 - 0.50 | EXTERNAL | | | Eosinophils | | K/uL | LAB | | + + + + + -+ | Absolute | 0.05 | 0.00 - 0.10 | EXTERNAL | | | Basophils | | K/uL | LAB | | + + + + + -+ | Na | 141 | 135 - 145 | EXTERNAL | | | | | mmol/L | LAB | | + + + + + -+ | K | 4.7 | 3.5 - 4.9 | EXTERNAL | | | | | mmol/L | LAB | | + + + + + -+ | Cl | 109 | 99 - 109 mmol/L | EXTERNAL | | | | | | LAB | | + + + + + -+ | CO2 | 23 | 23 - 32 mmol/L | EXTERNAL | | | | | | LAB | | + + + + + -+ | Anion Gap | 14 | 5 - 20 mmol/L | EXTERNAL | | | | | | LAB | | + + + + + -+ | Glucose, | 106 (H) | 65 - 99 mg/dL | EXTERNAL | | | Fasting | | | LAB | | + + + + + -+ | BUN | 21 | 8 - 25 mg/dL | EXTERNAL | | | | | | LAB | | + + + + + -+ | Creatinine | 1.6 (H) | 0.70 - 1.30 | EXTERNAL | | | | | mg/dL | LAB | | + + + + + -+ | BUN/Creatin | 13 | | EXTERNAL | | | ine Ratio | | | LAB | | + + + + + -+ | Calcium | 8.4 (L) | 8.5 - 10.5 | EXTERNAL | | | | | mg/dL | LAB | | + + + + + -+ | Protein, | 7.2 | 6.3 - 8.2 g/dL | EXTERNAL | | | Total | | | LAB | | + + + + + -+ | Albumin | 3.4 | 3.3 - 4.8 g/dL | EXTERNAL | | | | | | LAB | | + + + + + -+ | Globulin | 3.9 | 1.3 - 4.9 g/dL | EXTERNAL | | | | | | LAB | | + + + + + -+ | A/G Ratio | 0.9 (L) | 1.0 - 2.4 | EXTERNAL | | | | | | LAB | | + + + + + -+ | Bilirubin | 0.5 | 0.1 - 1.5 mg/dL | EXTERNAL | | | Total | | | LAB | | + + + + + -+ | ALP, | 59 | 35 - 115 U/L | EXTERNAL | | | External | | | LAB | | + + + + + -+ | AST | 16 | 10 - 45 U/L | EXTERNAL | | | | | | LAB | | + + + + + -+ | ALT | 15 | 10 - 65 U/L | EXTERNAL | | | | | | LAB | | + + + + + -+ | Estimated | 44 (L)Comment: GFR <60: | mL/min/1.73m2 | EXTERNAL | | | GFR | CHRONIC KIDNEY DISEASE, | | LAB | | | | IF FOUND OVER A 3 MONTH | | | | | | PERIOD.GFR <15: KIDNEY | | | | | | FAILURE.FOR | | | | | | AMERICANS, MULTIPLY THE | | | | | | CALCULATED GFR BY 1.210. | | | | | | | | | | + + + + + -+ | CK, Total | 68 | 55 - 400 U/L | EXTERNAL | | | | | | LAB | | + + + + + -+ | INR | 2.8Comment: REFERENCE | | EXTERNAL | | | | RANGE:0.9 - 1.2 | | LAB | | | | NON-ANTICOAGULATED2.0 | | | | | | - 3.0 ALL OTHER | | | | | | THERAPEUTIC | | | | | | INDICATIONS2.5 - 3.5 | | | | | | MECHANICAL HEART VALVES, | | | | | | RECURRENT OR SYSTEMIC | | | | | | EMBOLISM | | | | + + + + + -+ | aPTT, | 35 (H) | 23 - 32 seconds | EXTERNAL | | | Patient | | | LAB | | + + + + + -+ | CK-MB | 2.2 | 0.5 - 3.6 ng/mL | EXTERNAL | | | | | | LAB | | + + + + + -+ | CK-MB Index | 3.2Comment: CK INDEX | | EXTERNAL | | | | INTERPRETATION: | | LAB | | | | MMB ng/mL | | | | | | | | | | | |CK INDEX INTERPRETATION: | | | | | | MMB ng/mL | | | | | | | | | | + + + + + -+ + + | Specimen | + + | | + + + +---------+ + + | Performing | Address | City/State/Zipcode | Phone Number | | Organization | | | | + +---------+ + + | EXTERNAL LAB | | | | + +---------+ + + Troponin I (07/25/2017 10:51 AM PST) + + + + + + | Component | Value | Ref Range | Performed | Pathologist | | | | | At | Signature | + + + + + + | Troponin I, | <0.020Comment: 0.00 to | 0.00 - 0.10 | EXTERNAL | | | Qual | 0.10 CONSISTENT WITH | ng/mL | LAB | | | | NORMAL POPULATION0.11 | | | | | | to 0.60 CONSISTENT | | | | | | WITH INCREASED RISK FOR | | | | | | ADVERSE OUTCOMES> 0.60 | | | | | | CONSISTENT | | | | | | WITH WHO CRITERIA FOR | | | | | | ACUTE [place] Testing | | | | | | performed at [facility];[address] | | | | | | [facility];[place], [place] | | | | | | [id number] | | | | + + + + + + + + | Specimen | + + | Blood specimen | | (specimen) | + + + +---------+ + + | Performing | Address | City/State/Zipcode | Phone Number | | Organization | | | | + +---------+ + + | EXTERNAL LAB | | | | + +---------+ + + B Type Natriuretic Peptide (07/25/2017 10:51 AM PST) + + + + + + | Component | Value | Ref Range | Performed | Pathologist | | | | | At | Signature | + + + + + + | BNP | 614 (H)Comment: Testing | 0 - 100 pg/mL | EXTERNAL | | | | performed at [facility];[address] | | LAB | | | | [facility];[place], [place] | | | | | | [address] | | | | + + + + + + + + | Specimen | + + | Blood specimen | | (specimen) | + + + +---------+ + + | Performing | Address | City/State/Zipcode | Phone Number | | Organization | | | | + +---------+ + + | EXTERNAL LAB | | | | + +---------+ + + External Lab: Occult Blood, Screening (07/25/2017 10:42 AM PST) + + | Specimen | + + | Stool specimen | | (specimen) | + + + + + | Narrative | Performed At | + + + | Mikey Reynaga MD 07/25/2017 6:34 PM Guaiac negative stool. | EXTERNAL LAB | | Performed by ED provider. 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 | | + + + + +---------+ + + | Performing | Address | City/State/Zipcode | Phone Number | | Organization | | | | + +---------+ + + | EXTERNAL LAB | | | | + +---------+ + + ECG 12 lead (07/25/2017 10:35 AM PST) + + + + + + | Component | Value | Ref Range | Performed | Pathologist | | | | | At | Signature | + + + + + + | DIAGNOSIS: | Wide QRS rhythmLeft | | EXTERNAL | | | | bundle branch | | LAB | | | | blockAbnormal ECGWhen | | | | | | compared with ECG of | | | | | | 28-NOV-2016 | | | | | | 12:29,Previous ECG has | | | | | | undetermined rhythm, | | | | | | needs reviewThis ECG | | | | | | contains Unconfirmed | | | | | | Interpretation | | | | | | Statements. See ED | | | | | | Record for Physician | | | | | | Interpretation. | | | | | | Confirmed by MUSE READ | | | | | | ONLY, -COMPUTER ([id number]), | | | | | | web content editor ART BROWN ([id number]) | | | | | | on 07/25/2017 5:09:42 PM | | | | | | | | | | + + + + + + + + | Specimen | + + | | + + + + + | Narrative | Performed At | + + + | Historically converted procedure from [facility] | EXTERNAL LAB | + + + + +---------+ + + | Performing | Address | City/State/Zipcode | Phone Number | | Organization | | | | + +---------+ + + | EXTERNAL LAB | | | | + +---------+ + + documented in this encounter Visit Diagnoses + + | Diagnosis | + + | Dyspnea, unspecified type | + + | Fatigue, unspecified type | + + | Altered mental status, unspecified altered mental status type | + + | Pulmonary hypertension (HCC) Other chronic pulmonary heart diseases | + + | 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
--- OUTSIDE RECORDS SUMMARY | ~2020-01-27 | XMS | Encounter Summary ---
Demographics + + + | Address | [address] | | | [place] [address] | + + + | Home Phone | | + + + | Preferred Language | Unknown | + + + | Marital Status | | + + + | Christian Affiliation | 1001 | + + + | Race | Unknown | + + + | Ethnic Group | Unknown | + + + Author + + + | Author | [facility] | | | and [place] | + + + | Organization | [facility] | | | [...] [place] | | | | | [address] | | + + + + + | Deanna Lawson | ECON | Unknown | | + + + + + Care Team Providers + +------+ + | Care Superintendent Container Terminal Name | Role | Phone | + +------+ + | Barbara Gilman MD | PCP | | + +------+ + Reason for Visit Auth/Cert +--------+--------+ + + + + | Status | Reason | Specialty | Diagnoses / | Referred By | Referred To | | | | | Procedures | Contact | Contact | +--------+--------+ + + + + | | | | Diagnoses | | | | | | | Hip | | | | | | | fracture | | | | | | | hip fx | | | | | | | Procedures | | | | | | | NAILING IM | | | | | | | BETSY FEMUR - | | | | | | | GAMMA NAIL | | | +--------+--------+ + + + + Encounter Details +--------+ + + + + | Date | Type | Department | Care Team | Description | +--------+ + + + + | 12/21/ | Anesthesia | [facility] | Ja Hill, | | | 2019 | Event | [facility] | GIFT OFFICER [address] | | | | | OPER[address] | [place] [address] | | | | | [address] | [phone] | | | | | [place] | | | | | | [address] | | | | | | [phone] | | | +--------+ + + + + Anesthesia Record + + + + + | Procedure Name | Responsible | Anesthesia Start | Anesthesia Stop Time | | | Anesthesiologist | Time | | + + + + + | NAILING IM BETSY FEMUR | Ja Hill CRNA | 12/22/19 0851 | 12/22/19 1038 | | - GAMMA NAIL (Right | | | | | Hip) | | | | + + + + + +----+---+ + + | Da | T | Event | Comment | | te | i | | | | | m | | | | | e | | | +----+---+ + + | 05 | 0 | | | | /0 | 7 | | | | 3/ | 4 | | | | 20 | 5 | | | | 20 | | | | +----+---+ + + | | 0 | Quick Note | Insulin 5 units and 1 amp of dextrose given for a potassium of | | | 8 | | 5.8 | | | 2 | | | | | 5 | | | +----+---+ + + | | 0 | Quick Note | Potassium came back at 4.7 on the istat proceeding to surgery now | | | 8 | | | | | 4 | | | | | 6 | | | +----+---+ + + | | 0 | An Start | Reassessment prior to anesthesia induction/procedure. | | | 8 | | | | | 5 | | | | | 1 | | | +----+---+ + + | | 0 | Antibiotic | | | | 8 | Given | | | | 5 | | | | | 7 | | | +----+---+ + + | | 0 | An | | | | 8 | Induction | | | | 5 | | | | | 7 | | | +----+---+ + + | | 0 | An | | | | 9 | Intubation | | | | 0 | | | | | 1 | | | +----+---+ + + | | 0 | Whitman | | | | 9 | 43-degrees | | | | 1 | | | | | 6 | | | +----+---+ + + | | 0 | an mary now | | | | 9 | | | | | 2 | | | | | 1 | | | +----+---+ + + | | 0 | First | | | | 9 | Inc/Proc St | | | | 2 | | | | | 2 | | | +----+---+ + + | | 1 | Extubation/ | | | | 0 | Airway LDA | | | | 3 | Removal | | | | 3 | | | +----+---+ + + | | 1 | an stop | | | | 0 | data | | | | 3 | | | | | 3 | | | +----+---+ + + | | 1 | An Stop | Patient handed off to recovery nurse. | | | 3 | | | | | 8 | | | +----+---+ + + +------+ | Meds | +------+ + + + | Name | Total | + + + | fentaNYL | 50 mcg | + + + | lidocaine 2% | 80 mg | + + + | ePHEDrine | 20 mg | + + + | neostigmine | 3 mg | + + + | glycopyrrolate | 0.4 mg | + + + | phenylephrine | 2,640 mcg | + + + | etomidate | 12 mg | + + + | cisatracurium | 4 mg | + + + | ceFAZolin in dextrose (ANCEF) | 2 g | | IVPB 2 g | | + + + | calcium chloride | 500 mg | + + + | sodium bicarbonate injection 1 | 40 mEq | | mEq/mL | | + + + | ondansetron (ZOFRAN) injection 4 | 4 mg | | mg | | + + + | sodium chloride 0.9% (NS) | 600 mL | | infusion | | + + + | albumin 5% | 250 mL | + + + + + | Name | + + | N2O Flow Rate (L/Min) | + + | O2 Flow Rate (L/Min) | + + | Insp O2 | + + | Exp N2O | + + | Exp SEV | + + | Air Flow Rate (L/Min) | + + + + | No blood administrations on file. | + + +--------+ + + + | Type | Details | Placement | Removal | +--------+ + + + | Wound | 12/21/19; 2054; Right; lower, | 12/21/192054 by | | | | posterior; arm; abrasion | Lise Rosario RN | | +--------+ + + + | Wound | 12/22/19; 1024; Incision; Right; | 12/22/19 1024 by | | | | true | Winsome Nance | | | | | JIAN Rios | | +--------+ + + + | Periph | 12/22/19; 0800; Left; Anterior | 12/22/19 0800 by | 12/27/192027 by Lawanda | | eral | (palmar), Proximal; Forearm; | Sendy Smith RN | Savana Bowden RN | | IV | lgks-qth-fqzlec catheter system; | | | | | 18 gauge; lumen/catheter not | | | | | patent, removed per | | | | | policy/procedure, site care per | | | | | policy/procedure, catheter/device | | | | | intact; 12/27/19; 2027 | | | +--------+ + + + | Arteri | 12/22/19; 0834; Alcohol; No; | 12/22/19 0834 by | 12/22/19 1147 by | | al | Left; radial artery; 20 gauge; | Ja Hill CRNA | Nithya Ratliff RN | | Line | continuous blood pressure | | | | | monitoring, frequent blood gas | | | | | measurement; intradermal | | | | | injection; catheter tip sent to | | | | | lab for culture; 12/22/19; 1147 | | | +--------+ + + + | Airway | Placement Date: 12/22/19; | 12/22/19 09 by | 12/22/19 1033 by | | | Placement Time: 900 (created via | Ja Hill CRNA | Ja Hill CRNA | | | procedure documentation); Mask | | | | | Ventilation: EZ; Airway Grade: 1; | | | | | External Maneuvers: head lift; | | | | | Successful Technique: Soto; | | | | | Laryngoscope Blade Size: 2; | | | | | Attempts: 1; Airway Type: | | | | | endotracheal; Size: 8; Airway | | | | | Tube Secured At: 22; Trauma: | | | | | none; Other Equipment: stylette; | | | | | Placement Check: exhaled CO2 | | | | | detection device, bilateral chest | | | | | rise, breath sounds equal | | | | | bilaterally; Removal Date: | | | | | 12/22/19; Removal Time: 1033 | | | +--------+ + + + documented in this encounter Social History + +-------+ +--------+ + | [...] 2019 | Visit | | [address] [facility] | | | | | | [address] [place] | | | | | | [address] | | | | | | | | +--------+ + + + + | 02/05/ | Office | Cardiology | Dina Sanchez DO | | | 2019 | Visit | | [address] | | | | | | [place] | | | | | | [address] | | | | | | | | +--------+ + + + + | 02/09/ | Procedure | Cardiology | | | | 2019 | visit | | | | +--------+ + + + + | 02/17/ | Office | Orthopedic Surgery | Melquiades Baez | | | 2019 | Visit | | DO [address] | | | | | | [place] | | | | | | [place] [address] | | | | | | [phone] | | | | | | | | +--------+ + + + + | 03/09/ | Office | Nephrology | Isiah Jade MD | | | 2019 | Visit | | [address] [facility] | | | | | | [address] [place] | | | | | | [address] | | | | | | | | +--------+ + + + + documented as of this encounter Procedures + +--------+ + + + | Procedure Name | Priori | Date/Time | Associated Diagnosis | Comments | | | ty | | | | + +--------+ + + + | ANE AIRWAY NOTE | Routin | 12/22/2019 | | Results for this | | | e | 9:14 AM | | procedure are in the | | | | PDT | | results section. | + +--------+ + + + documented in this encounter Results Airway (12/22/2019 9:14 AM PDT) + + + | Narrative | Performed At | + + + | Ja Hill CRNA 12/22/2019 9:14 AM Anesthesia Airway | | | Placement 12/22/2019 9:01 AM Preprocedure check: patient | | | identified, suction, airway equipment checked, patient reassessment | | | prior to induction, oxygen and airway assessed Mask ventilation: | | | easy External maneuver: head lift Successful technique: Soto | | | Laryngoscope blade size: 2 Airway grade: 1 (Full view of glottis) | | | Other equipment: stylette Attempts: 1 Airway type: endotracheal | | | Size: 8 Cuffed: cuffed Route, reference point: teeth/lips Tube | | | depth: 22 cm Tube secured with: adhesive tape Trauma: none Tube | | | placement verification: bilateral chest rise, equal bilateral breath | | | sounds and carbon dioxide detection Performing provider: Ja | | | JAXSON Hill Authorizing provider: Ja Hill CRNA | | | Please see intraoperative grid for any additional medication | | | documentation. | | + + + documented in this encounter Visit Diagnoses Not on filedocumented in this encounter Administered Medications + +---------+ +------+------+------+ | Medication Order | MAR | Action | Dose | Rate | Site | | | Action | Date | | | | + +---------+ +------+------+------+ | albumin 5% IVPB Intravenous, | New Bag | 12/22/19 | | | | | Administer over 1 Hours, | | 20 10:11 | | | | | CONTINUOUS PRN, Starting Sun | | AM PDT | | | | | 12/22/19 at 1011, Anesthesia | | | | | | | Intra-op | | | | | | + +---------+ +------+------+------+ +---+---+ | | | +---+---+ + +-------+ +--------+---+---+ | calcium chloride injection | Given | 12/22/19 | 200 mg | | | | Intravenous, PRN, Starting Sun | | 20 9:42 | | | | | 12/22/19 at 0906, Anesthesia | | AM PDT | | | | | Intra-op | | | | | | + +-------+ +--------+---+---+ +-------+ +--------+---+---+ | Given | 12/22/19 | 300 mg | | | | | 20 9:06 | | | | | | AM PDT | | | | +-------+ +--------+---+---+ +---+---+ | | | +---+---+ + +-------+ +-----+---+---+ | ceFAZolin in dextrose (ANCEF) | Given | 12/22/19 | 2 g | | | | IVPB 2 g 2 g, Intravenous, | | 20 9:10 | | | | | Administer over 30 Minutes, Prior | | AM PDT | | | | | to Incision, Starting 12/22/19 | | | | | | | at 0808, For 1 dose, Keep in | | | | | | | refrigerator., Pre-op, | | | | | | | Indications: Surgical Prophylaxis | | | | | | + +-------+ +-----+---+---+ +---+---+ | | | +---+---+ + +-------+ +------+---+---+ | cisatracurium (NIMBEX) | Given | 12/22/19 | 4 mg | | | | injection Intravenous, PRN, | | 20 8:57 | | | | | Starting Mcintyre 12/22/19 at 0857, | | AM PDT | | | | | Anesthesia Intra-op | | | | | | + +-------+ +------+---+---+ +---+---+ | | | +---+---+ + +-------+ +-------+---+---+ | ePHEDrine in saline 5 mg/mL IV | Given | 12/22/19 | 10 mg | | | | syringe Intravenous, PRN, | | 20 9:12 | | | | | Starting Mcintyre 12/22/19 at 0912, | | AM PDT | | | | | Anesthesia Intra-op | | | | | | + +-------+ +-------+---+---+ +-------+ +-------+---+---+ | Given | 12/22/19 | 10 mg | | | | | 20 9:04 | | | | | | AM PDT | | | | +-------+ +-------+---+---+ +---+---+ | | | +---+---+ + +-------+ +-------+---+---+ | etomidate (AMIDATE) injection | Given | 12/22/19 | 12 mg | | | | Intravenous, PRN, Starting Sun | | 20 8:57 | | | | | 12/22/19 at 0857, Anesthesia | | AM PDT | | | | | Intra-op | | | | | | + +-------+ +-------+---+---+ +---+---+ | | | +---+---+ + +-------+ +--------+---+---+ | fentaNYL (PF) injection | Given | 12/22/19 | 25 mcg | | | | Intravenous, PRN, Starting Sun | | 20 9:38 | | | | | 12/22/19 at 0857, Anesthesia | | AM PDT | | | | | Intra-op | | | | | | + +-------+ +--------+---+---+ +-------+ +--------+---+---+ | Given | 12/22/19 | 25 mcg | | | | | 20 8:57 | | | | | | AM PDT | | | | +-------+ +--------+---+---+ +---+---+ | | | +---+---+ + +-------+ +--------+---+---+ | glycopyrrolate (MARY) | Given | 12/22/19 | 0.4 mg | | | | injection Intravenous, PRN, | | 20 10:16 | | | | | Starting Ayesha 12/22/19 at 1016, | | AM PDT | | | | | Anesthesia Intra-op | | | | | | + +-------+ +--------+---+---+ +---+---+ | | | +---+---+ + +-------+ +-------+---+---+ | lidocaine (PF) 2% injection | Given | 12/22/19 | 80 mg | | | | Intravenous, PRN, Starting Sun | | 20 8:57 | | | | | 12/22/19 at 0857, Anesthesia | | AM PDT | | | | | Intra-op | | | | | | + +-------+ +-------+---+---+ +---+---+ | | | +---+---+ + +-------+ +------+---+---+ | neostigmine (BLOXIVERZ) 1 mg/mL | Given | 12/22/19 | 3 mg | | | | injection Intravenous, PRN, | | 20 10:16 | | | | | Starting 12/22/19 at 1016, | | AM PDT | | | | | Anesthesia Intra-op | | | | | | + +-------+ +------+---+---+ +---+---+ | | | +---+---+ + +-------+ +------+---+---+ | ondansetron (ZOFRAN) injection | Given | 12/29/19 | 4 mg | | | | 4 mg 4 mg, Intravenous, EVERY 6 | | 20 10:33 | | | | | HOURS PRN, Nausea, Vomiting, | | AM PDT | | | | | Starting 12/21/19 at 2126, | | | | | | | First line agent, | | | | | | + +-------+ +------+---+---+ +-------+ +------+---+---+ | Given | 12/28/19 | 4 mg | | | | | 20 4:51 | | | | | | AM PDT | | | | +-------+ +------+---+---+ | Given | 12/22/19 | 4 mg | | | | | 20 10:16 | | | | | | AM PDT | | | | +-------+ +------+---+---+ +---+---+ | | | +---+---+ + + + +---------+-------+---+ | phenylephrine (MARKUS-SYNEPHRINE, | Rate/Dos | 12/22/19 | 20 | 0.1 | | | VAZCULEP) 10 mg/mL injection | e Change | 20 10:18 | mcg/min | mL/hr | | | Intravenous, CONTINUOUS PRN, | | AM PDT | | | | | Starting 12/22/19 at 0904, | | | | | | | Anesthesia Intra-op | | | | | | + + + +---------+-------+---+ + + +---------+-------+---+ | Rate/Dose Change | 12/22/19 | 30 | 0.2 | | | | 20 10:04 | mcg/min | mL/hr | | | | AM PDT | | | | + + +---------+-------+---+ | Rate/Dose Change | 12/22/19 | 40 | 0.2 | | | | 20 9:42 | mcg/min | mL/hr | | | | AM PDT | | | | + + +---------+-------+---+ +---+---+ | | | +---+---+ + +-------+ +--------+---+---+ | sodium bicarbonate 1 mEq/mL | Given | 12/22/19 | 15 mEq | | | | injection Administer over 1 | | 20 10:14 | | | | | Minutes, PRN, Starting 12/22/19 | | AM PDT | | | | | at 0955, Anesthesia Intra-op | | | | | | + +-------+ +--------+---+---+ +-------+ +--------+---+---+ | Given | 12/22/19 | 25 mEq | | | | | 20 9:55 | | | | | | AM PDT | | | | +-------+ +--------+---+---+ +---+---+ | | | +---+---+ + +---------+ +---+-------+---+ | sodium chloride 0.9% (NS) | New Bag | 12/22/19 | | 100 | | | infusion at 100 mL/hr, | | 20 5:29 | | mL/hr | | | Intravenous, CONTINUOUS, Starting | | PM PDT | | | | | 12/22/19 at 0845 | | | | | | + +---------+ +---+-------+---+ +---------+ +---+-------+---+ | New Bag | 12/22/19 | | | | | | 20 9:39 | | | | | | AM PDT | | | | +---------+ +---+-------+---+ | New Bag | 12/22/19 | | 100 | | | | 20 8:19 | | mL/hr | | | | AM PDT | | | | +---------+ +---+-------+---+ +---+---+ | | | +---+---+ documented in this encounter"
--- OUTSIDE RECORDS SUMMARY | ~2020-01-27 | XMS | Encounter Summary ---
Demographics + + + | Address | [address] | | | [place] [address] | + + + | Home Phone | | + + + | Preferred Language | Unknown | + + + | Marital Status | | + + + | Baptist Affiliation | 1001 | + + + | Race | Unknown | + + + | Ethnic Group | Unknown | + + + Author + + + | Author | [facility] | | | and [place] | + + + | Organization | [facility] | | | [...] [place] | | | | | [address] | | + + + + + | Deanna Lawson | ECON | Unknown | | + + + + + Care Team Providers + +------+ + | Care Grinder Operator Surface Tool Name | Role | Phone | + +------+ + | Barbara Gilman MD | PCP | | + +------+ + Encounter Details +--------+ + + + + | Date | Type | Department | Care Team | Description | +--------+ + + + + | 06/25/ | Orders Only | [facility] | Charlee Oswald | | | 2018 | | CARDIOLOGY ALY[facility] | [address] | | | | | [address] | [address] | | | | | [address] | [place] [address] | | | | | [place] | [phone] | | | | | [address] | | | | | | [phone] | | | +--------+ + + + [...] 2019 | Visit | | [facility] | | | | | | [address] [place] | | | | | | [address] | | | | | | | | +--------+ + + + + | 02/05/ | Office | Cardiology | Dina Sanchez DO | | | 2019 | Visit | | [address] | | | | | | [place] | | | | | | [address] | | | | | | | | +--------+ + + + + | 02/09/ | Procedure | Cardiology | | | | 2019 | visit | | | | +--------+ + + + + | 02/17/ | Office | Orthopedic Surgery | Melquiades Baez | | 2019 | Visit | | DO [address] | | | | | | [place], | | | | | | [place] [address] | | | | | | [phone] | | | | | | | | +--------+ + + + + | 03/09/ | Office | Nephrology | Isiah Jade MD | | | 2019 | Visit | | [facility] | | | | | | [address] [place] [address] | | | | | | [address] | | | | | | | | +--------+ + + + + documented as of this encounter Visit Diagnoses Not on filedocumented in this encounter Additional Health Concerns + + + + | Infection | Noted Time | Resolved Time | + + + + | Rule out COVID-19 | 12/24/2019 12:23 PM | 12/24/2019 2:10 PM | | | PDT | PDT | + + + + documented as of this encounter"
--- OUTSIDE RECORDS SUMMARY | ~2020-01-27 | XMS | Encounter Summary ---
Demographics + + + | Address | [address] | | | [place] [address] | + + + | Home Phone | | + + + | Preferred Language | Unknown | + + + | Marital Status | | + + + | Hoahaoism Affiliation | 1001 | + + + | Race | Unknown | + + + | Ethnic Group | Unknown | + + + Author + + + | Author | [facility] | | | and [place] | + + + | Organization | [facility] | | | and [...] [place] | | | | | [address] | | + + + + + | Deanna Lawson | ECON | Unknown | | + + + + + Care Team Providers + +------+ + | Care Coding Compliance Specialist Name | Role | Phone | + +------+ + PCP | Unavailable | + +------+ + Encounter Details +--------+ + + + + | Date | Type | Department | Care Team | Description | +--------+ + + + + | 07/28/ | Hospital | [facility] | Robe Prasad | | | 2009 - | Encounter | [facility] | MD Brendan [id number] | | | | | CARE FLOOR [address] | [address] [place] [address] | | | 07/31/ | | [address] | [place] [address] | | | 2009 | | [place], [place] | [phone] | | | | | [address] | | | | | | [phone] | | | +--------+ + + + [...] 2019 | Visit | | [address] [facility] | | | | | | [address] [place] | | | | | | [address] | | | | | | | | +--------+ + + + + | 02/05/ | Office | Cardiology | Dina Sanchez DO | | | 2019 | Visit | | [address] | | | | | | [place] | | | | | | [address] | | | | | | | | +--------+ + + + + | 02/09/ | Procedure | Cardiology | | | | 2019 | visit | | | | +--------+ + + + + | 02/17/ | Office | Orthopedic Surgery | Melquiades Baez | | | 2019 | Visit | | DO [address] | | | | | | [place] [facility], | | | | | | [place] [address] | | | | | | [phone] | | | | | | | | +--------+ + + + + | 03/09/ | Office | Nephrology | Isiah Jade MD | | | 2019 | Visit | | [address] [facility] | | | | | | [address] [place] | | | | | | [address] | | | | | | | | +--------+ + + + + documented as of this encounter Procedures + +--------+ + + + | Procedure Name | Priori | Date/Time | Associated Diagnosis | Comments | | | ty | | | | + +--------+ + + + | CV EP PROCEDURE | Routin | 07/30/2010 | | Results for this | | | e | 8:31 AM | | procedure are in the | | | | PST | | results section. | + +--------+ + + + documented in this encounter Results CV EP PROCEDURE (07/30/2010 8:31 AM PST) + + | Specimen | + + | | + + + + + | Narrative | Performed At | + + + | PREOPERATIVE DIAGNOSES 1. Symptomatic bradycardia. 2. Atrial | | | fibrillation with slow ventricular response. POSTOPERATIVE | | | DIAGNOSES 1. Symptomatic bradycardia. 2. Atrial fibrillation with | | | slow ventricular response. PROCEDURE Single-chamber permanent | | | pacemaker implantation. SURGEON Todd Harden DO ESTIMATED | | | BLOOD LOSS Minimal blood loss, less than 20 mL blood loss. | | | INDICATIONS A 80-year-old male with symptoms of dizziness and | | | lightheadedness presenting to the emergency room found to have a | | | heart rate in the 20s. He is on a low dose of beta-gala for his | | | chronic atrial fibrillation. Also he has a history of anticoagulation | | | therapy. He is admitted to the hospital. His beta-gala has been | | | discontinued as well as his warfarin. Consultation performed by | | | Maria Elena. The patient is now 2 days in the hospital without warfarin and | | | without metoprolol, and he still has a heart rate in the 30s, a | | | 2.5-second pause. Based on Dr. Arredondo's consultation, the patient has | | | symptomatic bradycardia. A pacemaker was recommended. For complete | | | details, see Dr. Arredondo's consultation. A permanent pacemaker has been | | | recommended. Risks and benefits explained; and informed consent was | | | obtained; and because Dr. Arredondo will be out of the area, he has asked | | | me to perform the implantation. I did meet with the patient prior to | | | the procedure and again explained the diagnosis, recommendations, | | | risks, and benefits. DESCRIPTION OF PROCEDURE The patient was | | | brought to the cardiac catheterization lab, and the right subclavian | | | area prepped and draped in a sterile manner. This was at the | | | patient's request. He is left-hand dominant. He received conscious | | | sedation in the form of Versed and fentanyl and also received local | | | anesthesia in the form of lidocaine plain for vascular access and | | | lidocaine with epinephrine for the pulse generator pocket. The | | | right subclavian vein was cannulated with a single attempt. A | | | large-bore needle and a guidewire was inserted through the needle, and | | | the position is verified in the superior vena cava fluoroscopically | | | after which the needle was removed and the guidewire attached to the | | | surgical field with a hemostat. Our attention was then turned to | | | creating a pocket for the pulse generator. A #10 blade was used to | | | make a horizontal incision in the upper chest. Hemostasis | | | maintained with a Bovie device. We then dissected our way through the | | | subcutaneous tissues until the pectoral fascia is identified. The | | | pectoral fascia was then transected with tissue scissors, and a | | | pocket was created below the fascia but not below the pectoral | | | muscle. A wet 4 x 4 gauze was placed in the pocket to maintain its | | | form. After this we dissected superiorly until we identified the | | | guidewire that passing through the skin into the right subclavian | | | vein. A 90-degree instrument was used to grasp the guidewire. The | | | guidewire was released from the surgical field and brought through | | | the skin into the pulse generator pocket. Over this guidewire, the | | | sheath and dilator were advanced. The guidewire and dilator were | | | removed. Pacing electrode was then passed through the sheath, | | | fluoroscopically guided to the RV outflow track, and then retracted | | | slightly, and lodged up against the interventricular septum, and | | | actively fixed. The pacing and sensing parameters were obtained, | | | after which, the sheath was split and peeled away. The electrode was | | | then sutured in place over its protective sleeve with 2-0 silk. | | | The wet 4 x 4 gauze was removed from the pocket. The pulse generator | | | was brought onto the field and connected with the electrode. The | | | pulse generator and the excess electrodes were then tucked into the | | | pocket and suspended with 2-0 silk. The pocket was then closed with | | | layers. Minimal blood loss, less than 20 mL blood loss; and at the | | | end of the procedure, no pericardial rub and no obvious pneumothorax | | | at this time. The patient tolerated the procedure well and was taken | | | back to his room to recover in stable condition. TECHNICAL DATA | | | The pacemaker is a [employer] Altrua 60, model S601. Serial | | | number is [id number]. The electrode is a [employer]ant [employer] electrode model | | | number 4136, length 50 cm. Serial number is [id number]. PACING AND | | | SENSING PARAMETERS The R wave from the ventricle is sensed at 14.0 | | | mV, and we captured 0.5 V and 0.5 msec, 0.8 mA of current, 655 ohms | | | of resistance. The device is programmed VVIR, low rate 16 msec. Upper | | | tracking rate is 130. P DT: | | | 08/11/2010 07:18 A [facility]//[id number]/ Read by TODD HARDEN DO | | | 08/10/2010 09:46 P Electronically signed by Todd Harden DO on | | | 07/02/2013 2:45 PM | | + + + + + | Procedure Note | + + | Kobe, Rad Conversion - 04/14/2019 1:10 PM PDT PREOPERATIVE DIAGNOSES | | 1. Symptomatic bradycardia. | | 2. Atrial fibrillation with slow ventricular response. | | | | POSTOPERATIVE DIAGNOSES | | 1. Symptomatic bradycardia. | | 2. Atrial fibrillation with slow ventricular response. | | | | PROCEDURE | | Single-chamber permanent pacemaker implantation. | | | | SURGEON | | Todd Harden DO | | | | ESTIMATED BLOOD LOSS | | Minimal blood loss, less than 20 mL blood loss. | | | | INDICATIONS | | A 80-year-old male with symptoms of dizziness and lightheadedness | | presenting to the emergency room found to have a heart rate in the 20s. | | He is on a low dose of beta-gala for his chronic atrial fibrillation. | | Also he has a history of anticoagulation therapy. He is admitted to the | | hospital. His beta-gala has been discontinued as well as his | | warfarin. Consultation performed by Dr. Arredondo. The patient is now 2 days | | in the hospital without warfarin and without metoprolol, and he still | | has a heart rate in the 30s, a 2.5-second pause. Based on Dr. Arredondo's | | consultation, the patient has symptomatic bradycardia. A pacemaker was | | recommended. For complete details, see Dr. Arredondo's consultation. A | | permanent pacemaker has been recommended. Risks and benefits explained; | | and informed consent was obtained; and because Dr. Arredondo will be out of | | the area, he has asked me to perform the implantation. I did meet with | | the patient prior to the procedure and again explained the diagnosis, | | recommendations, risks, and benefits. | | | | DESCRIPTION OF PROCEDURE | | The patient was brought to the cardiac catheterization lab, and the | | right subclavian area prepped and draped in a sterile manner. This was | | at the patient's request. He is left-hand dominant. He received | | conscious sedation in the form of Versed and fentanyl and also received | | local anesthesia in the form of lidocaine plain for vascular access and | | lidocaine with epinephrine for the pulse generator pocket. | | | | The right subclavian vein was cannulated with a single attempt. A | | large-bore needle and a guidewire was inserted through the needle, and | | the position is verified in the superior vena cava fluoroscopically | | after which the needle was removed and the guidewire attached to the | | surgical field with a hemostat. | | | | Our attention was then turned to creating a pocket for the pulse | | generator. A #10 blade was used to make a horizontal incision in the | | upper chest. Hemostasis maintained with a Bovie device. We | | then dissected our way through the subcutaneous tissues until the | | pectoral fascia is identified. The pectoral fascia was then transected | | with tissue scissors, and a pocket was created below the fascia but not | | below the pectoral muscle. A wet 4 x 4 gauze was placed in the pocket to | | maintain its form. | | | | After this we dissected superiorly until we identified the guidewire | | that passing through the skin into the right subclavian vein. A | | 90-degree instrument was used to grasp the guidewire. The guidewire was | | released from the surgical field and brought through the skin into the | | pulse generator pocket. Over this guidewire, the sheath and dilator were | | advanced. The guidewire and dilator were removed. Pacing electrode was | | then passed through the sheath, fluoroscopically guided to the RV | | outflow track, and then retracted slightly, and lodged up against the | | interventricular septum, and actively fixed. The pacing and sensing | | parameters were obtained, after which, the sheath was split and peeled | | away. The electrode was then sutured in place over its protective sleeve | | with 2-0 silk. | | | | The wet 4 x 4 gauze was removed from the pocket. The pulse generator was | | brought onto the field and connected with the electrode. The pulse | | generator and the excess electrodes were then tucked into the pocket and | | suspended with 2-0 silk. The pocket was then closed with layers. | | | | Minimal blood loss, less than 20 mL blood loss; and at the end of the | | procedure, no pericardial rub and no obvious pneumothorax at this time. | | The patient tolerated the procedure well and was taken back to his room | | to recover in stable condition. | | | | TECHNICAL DATA | | The pacemaker is a [employer] Altrua 60, model S601. Serial | | number is [id number]. | | The electrode is a Guidant [employer] electrode model number 4136, length | | 50 cm. Serial number is [id number]. | | | | PACING AND SENSING PARAMETERS | | The R wave from the ventricle is sensed at 14.0 mV, and we captured 0.5 | | V and 0.5 msec, 0.8 mA of current, 655 ohms of resistance. The device is | | programmed VVIR, low rate 16 msec. Upper tracking rate is 130. | | | | | | P | | A | | NIDA/arline/[id number]/ | | | | Read by | | TODD HARDEN DO 08/10/2010 09:46 P | | | | | + + documented in this encounter Visit Diagnoses Not on filedocumented in this encounter"
--- OUTSIDE RECORDS SUMMARY | ~2020-01-27 | XMS | Encounter Summary ---
Demographics + + + | Address | [address] | | | [place] [address] | + + + | Home Phone | | + + + | Preferred Language | Unknown | + + + | Marital Status | | + + + | Jehovah'S Witness Affiliation | 1001 | + + + | Race | Unknown | + + + | Ethnic Group | Unknown | + + + Author + + + | Author | [facility] | | | and [place] | + + + | Organization | [facility] | | | [...] [place] | | | | | [address] | | + + + + + | Deanna Lawson | ECON | Unknown | | + + + + + Care Team Providers + +------+ + | Care Restaurant General Manager Name | Role | Phone | + +------+ + | Barbara Gilman MD | PCP | | + +------+ + Encounter Details +--------+ + + + + | Date | Type | Department | Care Team | Description | +--------+ + + + + | 03/25/ | Orders Only | [facility] | Conversion | Essential (primary) | | 2019 | | CONVERSION DEP [address] | Transaction, | hypertension; | | | | [address] | Provider Unknown | Chronic kidney | | | | [place], [place] | [phone] | disease, stage III | | | | [address] | | (moderate) ([facility]); | | | | [phone] | | Chronic diastolic | | | | | | heart failure ([facility]) | +--------+ + + + + [...] 2019 | Visit | | [address] [facility] | | | | | | [address] [place] | | | | | | [address] | | | | | | | | +--------+ + + + + | 02/05/ | Office | Cardiology | Dina Sanchez DO | | | 2019 | Visit | | [address] | | | | | | [place] | | | | | | [address] | | | | | | | | +--------+ + + + + | 02/09/ | Procedure | Cardiology | | | | 2019 | visit | | | | +--------+ + + + + | 02/17/ | Office | Orthopedic Surgery | Melquiades Baez | | | 2019 | Visit | | [address] | | | | | | [place] [facility], | | | | | | [place] [address] | | | | | | [phone] | | | | | | | | +--------+ + + + + | 03/09/ | Office | Nephrology | Isiah Jade MD | | | 2019 | Visit | | [address] [facility] | | | | | | [facility] | | | | | | [address] | | | | | | | | +--------+ + + + + + +------+--------+ + + | Name | Type | Priori | Associated Diagnoses | Order Schedule | | | | ty | | | + +------+--------+ + + | Basic Metabolic | Lab | Routin | Essential | Expected: | | Panel | | e | (primary) | 11/25/2018, Expires: | | | | | hypertension | 10/26/2019 | | | | | Chronic kidney | | | | | | disease, stage III | | | | | | (moderate) ([facility]) | | + +------+--------+ + + | CBC with | Lab | Routin | Chronic diastolic | Expected: | | Differential | | e | heart failure ([facility]) | 12/27/2018, Expires: | | | | | Essential (primary) | 12/27/2019 | | | | | hypertension | | | | | | Chronic kidney | | | | | | disease, stage III | | | | | | (moderate) ([facility]) | | + +------+--------+ + + | Protein/Creatinine | Lab | Routin | Chronic diastolic | Expected: | | Ratio, Urine | | e | heart failure ([facility]) | 12/27/2018, Expires: | | | | | Essential (primary) | 12/27/2019 | | | | | hypertension | | | | | | Chronic kidney | | | | | | disease, stage III | | | | | | (moderate) ([facility]) | | + +------+--------+ + + | Urinalysis with | Lab | Routin | Chronic diastolic | Expected: | | Microscopic if | | e | heart failure ([facility]) | 12/27/2018, Expires: | | Indicated | | | Essential (primary) | 12/27/2019 | | | | | hypertension | | | | | | Chronic kidney | | | | | | disease, stage III | | | | | | (moderate) ([facility]) | | + +------+--------+ + + | Uric Acid | Lab | Routin | Chronic diastolic | Expected: | | | | e | heart failure ([facility]) | 12/27/2018, Expires: | | | | | Essential (primary) | 12/27/2019 | | | | | hypertension | | | | | | Chronic kidney | | | | | | disease, stage III | | | | | | (moderate) ([facility]) | | + +------+--------+ + + | Renal Function Panel | Lab | Routin | Chronic kidney | Expected: | | | | e | disease, stage III | 03/21/2019, Expires: | | | | | (moderate) ([facility]) | 08/19/2020 | + +------+--------+ + + | CBC with | Lab | Routin | Chronic kidney | Expected: | | Differential | | e | disease, stage III | 03/21/2019, Expires: | | | | | (moderate) ([facility]) | 08/19/2020 | + +------+--------+ + + | Magnesium | Lab | Routin | Chronic kidney | Expected: | | | | e | disease, stage III | 03/21/2019, Expires: | | | | | (moderate) ([facility]) | 08/19/2020 | + +------+--------+ + + | Uric Acid | Lab | Routin | Chronic kidney | Expected: | | | | e | disease, stage III | 03/21/2019, Expires: | | | | | (moderate) ([facility]) | 08/19/2020 | + +------+--------+ + + | Parathyroid Hormone, | Lab | Routin | Chronic kidney | Expected: | | Intact | | e | disease, stage III | 03/21/2019, Expires: | | | | | (moderate) ([facility]) | 08/19/2020 | + +------+--------+ + + | Protein/Creatinine | Lab | Routin | Chronic kidney | Expected: | | Ratio, Urine | | e | disease, stage III | 03/21/2019, Expires: | | | | | (moderate) ([facility]) | 08/19/2020 | + +------+--------+ + + documented as of this encounter Visit Diagnoses + + | Diagnosis | + + | Essential (primary) hypertension Unspecified essential hypertension | + + | Chronic kidney disease, stage III (moderate) (HCC) Chronic kidney disease, Stage III | | (moderate) | + + | Chronic diastolic heart failure (HCC) Chronic diastolic heart failure | + + documented in this encounter Additional Health Concerns + + + + | Infection | Noted Time | Resolved Time | + + + + | Rule out COVID-19 | 12/24/2019 12:23 PM | 12/24/2019 2:10 PM | | | PDT | PDT | + + + + documented as of this encounter"
--- OUTSIDE RECORDS SUMMARY | ~2020-01-27 | XMS | Encounter Summary ---
Demographics + + + | Address | [address] | | | [place] [address] | + + + | Home Phone | | + + + | Preferred Language | Unknown | + + + | Marital Status | | + + + | Islam Affiliation | 1001 | + + + [...] [place] | | | | | [address] | | + + + + + | Deanna Lawson | ECON | Unknown | | + + + + + Care Team Providers + +------+ + | Care Carrot Harvester Name | Role | Phone | + +------+ + | Barbara Gilman MD | PCP | | + +------+ + Reason for Visit +--------+ + | Reason | Comments | +--------+ + | Other | PCP progress note 01/23/20 | +--------+ + Encounter Details +--------+ + + + + | Date | Type | Department | Care Team | Description | +--------+ + + + + | 01/26/ | Documentati | [facility] | Nelson, | Other (PCP progress | | 2020 | on | NEPHROLOGY JESSI | Kita Sterling | note 01/23/20) | | | | [address] | [address] | | | | | [address] [place] | | | | | | [address] | | | | | | [phone] | | | +--------+ + + + [...] 7:19 PM PDT | + + + + + + [...] 2019 | Visit | | [address] [facility] [address] | | | | | | [address] [place] [address] | | | | | | [address] | | | | | | | | +--------+ + + + + | 02/05/ | Office | Cardiology | Dina Sanchez DO | | | 2019 | Visit | | [address] | | | | | | [place] | | | | | | [address] | | | | | | | | +--------+ + + + + | 02/09/ | Procedure | Cardiology | | | | 2019 | visit | | | | +--------+ + + + + | 02/17/ | Office | Orthopedic Surgery | Melquiades Baez | | | 2019 | Visit | | [address] | | | | | | [facility], | | | | | | [place] [address] | | | | | | [phone] | | | | | | | | +--------+ + + + + | 03/09/ | Office | Nephrology | Isiah Jade MD | | | 2019 | Visit | | [address] [facility] | | | | | | [address] [place] | | | | | | [address] | | | | | | | | +--------+ + + + + documented as of this encounter Visit Diagnoses Not on filedocumented in this encounter"
--- OUTSIDE RECORDS SUMMARY | ~2020-01-27 | XMS | Encounter Summary ---
Demographics + + + | Address | [address] | | | [place] [address] | + + + | Home Phone | | + + + | Preferred Language | Unknown | + + + | Marital Status | | + + + | Quaker Affiliation | 1001 | + + + | Race | Unknown | + + + | Ethnic Group | Unknown | + + + Author + + + | Author | [facility] | | | and [place] | + + + | Organization | [facility] | | | [...] [place] | | | | | [address] | | + + + + + | Deanna Lawson | ECON | Unknown | | + + + + + Care Team Providers + +------+ + | Care Salesperson Men'S Hats Name | Role | Phone | + +------+ + PCP | Unavailable | + +------+ + Encounter Details +--------+ + + + + | Date | Type | Department | Care Team | Description | +--------+ + + + + | 02/04/ | Hospital | 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 | Enoch Marks MD | failure ([facility]); | | | | | [address] | Pacemaker at end of | | | | | [place], [place] | battery life | | | | | [address] | | | | | | | [...] Note by Sendy Smith RN at 02/04/19 5568 Author: Sendy Smith RN Service: General Surgery Author Type: Registered Nurse Filed: 02/04/19 7691 Date of Service: 02/04/191429 Status: Signed Blunger Loader: Sendy Smith RN (Registered Nurse) Patient discharged [...] 2019 | Visit | | [address] [facility] | | | | | | [address] [place], [place] | | | | | | [address] | | | | | | | | +--------+ + + + + | 02/05/ | Office | Cardiology | Dina Sanchez DO | | | 2019 | Visit | | [address] | | | | | | [place] | | | | | | [address] | | | | | | | [...] | | | | | | [place] [address] | | | | | | [phone] | | | | | | | | +--------+ + + + + | 03/09/ | Office | Nephrology | Isiah Jade MD | | | 2019 | Visit | | [address] [facility] | | | | | | [address] [place], [place] | | | | | | [address] | | | | | | | [...] will be seen in one week in [place] | | | by ENEDINA Bo. Read [...] | | indicator status. 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 He has felt poorly over the last few | | | weeks since the device went into an MIRIAN mode. The current lead is | | | a [employer] model 4136, serial #[id number]. The current | | | pacemaker is a [employer] model S601, serial #[id number]. He is | | | anticoagulated and [...] The lead was attached to a new [employer] | | | Accolade MRI compatible model L310, serial #[id number] pacemaker. That | | | device was [...] Note | + + | Leonides Bullock - 04/10/2019 4:06 PM PDT | | | | DATE OF SERVICE: 02/04/2019 | | | | PROCEDURE: Single chamber generator change-out for the pacemaker. | | | | HISTORY: This 88-year-old gentleman was referred for a pacemaker generator | | change-out since his current device is at elective replacement indicator | | status. 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 He | | has felt poorly over the last few weeks since the device went into an MIRIAN | | mode. The current lead is a [employer] model 4136, serial | | #[id number]. The current pacemaker is a [employer] model S601, serial | | #[id number]. He is anticoagulated and the last dose [...] The lead was attached to a new [employer] | | Accolade MRI compatible model L310, serial #[id number] pacemaker. That device | | was placed [...] seen in one | | week in [place] by ENEDINA Bo. | | | | [...] | | | Fingerstick | performed at [facility];[address] | | LAB | | | | [address];[place], [place] | | | | | | [address] | | | | + + + [...] | | | Basophils | performed at [facility];[address] | K/uL | LAB | | | | [address];[place] | | | | | | [address] | | | | + + + [...] | | | | | performed at [facility];[address] | | | | | | [facility];[place], [place] | | | | | | [address] | | | | + + + [...]
--- OUTSIDE RECORDS SUMMARY | ~2020-01-27 | XMS | Encounter Summary ---
Demographics + + + | Address | [address] | | | [place] [address] | + + + | Home Phone | | + + + | Preferred Language | Unknown | + + + | Marital Status | | + + + | Oriental Orthodox Affiliation | 1001 | + + + | Race | Unknown | + + + | Ethnic Group | Unknown | + + + Author + + + | Author | [facility] | | | and [place] | + + + | Organization | [facility] | | [...] [place] | | | | | [id number] | | + + + + + | Deanna Lawson | ECON | Unknown | | + + + + + Care Team Providers + +------+ + | Care Pharmacy Assistant Name | Role | Phone | + [...] +--------+--------+ + + + + Encounter Details +--------+---------+ + + + | Date | Type | Department | Care Team | Description | +--------+---------+ + + + | 12/28/ | Surgery | [facility] | Lamont Hernandez MD | EGD | | 2020 | | [facility] | [address] | | | | | [address] | [place] | | | | | [address] [place] | [address] | | | | | [address] | [phone] | | | | | [phone] | | | +--------+---------+ + + + Social History + +-------+ [...] + + + | Blood Pressure | 146/67 | 01/01/2020 10:58 AM | | | | | PDT | | + + + + + | Pulse | 62 | 01/01/2020 10:58 AM | | | | | PDT | | + + + + + | Temperature | 36.6 C (97.8 F) | 01/01/2020 10:58 AM | | | | | PDT | | + + + + + | Respiratory Rate | 18 | 01/01/2020 10:58 AM | | | | | PDT | | + + + + + | Oxygen Saturation | 98% | 01/01/2020 10:58 AM | | | | | PDT | | + + + + + | Inhaled Oxygen | - | - | | | Concentration | | | | + + + + + | Weight | 63.5 kg (140 lb) | 12/23/2019 11:10 PM | | | | | PDT | | + + + + + | Height | 165.1 cm (5' 5") | 12/23/2019 11:10 PM | | | | | PDT | | + + + + + | Body Mass Index | 23.3 | 12/23/2019 11:10 PM | | | | | PDT | | + + + + + documented in this encounter Discharge Summaries Regino Greene MD - 01/01/2020 10:59 AM PDTFormatting of this note might be different fro m the original. Service: Hospitalist Discharge Summary Date of Admission: 12/21/2019 Date of Discharge: 01/01/2020 Discharge Provider: Regino Greene MD Treatment Team: Melquiades Baez DO; Hayley Tapia MD; Lamont Hernandez MD Discharge Diagnoses: Principal Problem: Acute GI bleeding Active Problems: Permanent atrial fibrillation Hypertension goal BP (blood pressure) < 140/80 Type 2 diabetes mellitus with kidney complication, without long-term current use of insul in Chronic diastolic heart failure History of stroke Closed comminuted intertrochanteric fracture of right femur with routine healing Acute renal failure superimposed on stage 3 chronic kidney disease Weakness generalized Difficulty in walking Bacterial pneumonia Acute post-hemorrhagic anemia Bleeding duodenal ulcer Resolved Problems: * No resolved hospital problems. * Procedures: Procedure(s): EGD Significant Diagnostic Studies: Renal ultrasound showed the following: IMPRESSION: 1. Negative for hydronephrosis. 2. Renal cortical thinning to likely resent medical renal disease. 3. Renal cysts. 4. Tiny amount of free fluid within the pelvis that is nonspecific. Chest x-ray showed the following: IMPRESSION: Mild bilateral interstitial opacities consistent with pulmonary edema or atypical pneumonia. Small left pleural effusion. Echocardiogram showed the following: Normal left ventricular systolic function. The left ventricular ejection fraction is 55% . Mild aortic regurgitation. Mild to moderate mitral regurgitation. Severe eccentric tricuspid regurgitation. There is severe pulmonary hypertension. Estimated right ventricular systolic pressure (R VSP) is 79 mmHg. EGD showed the following: Impression: - LA Grade C reflux esophagitis. Rule out Dumnot's esophagus. Biopsied. - Small hiatal hernia. - Erythematous mucosa in the stomach. Biopsied. - Oozing duodenal ulcer with a visible vessel. Injected. Treated with bipolar cautery. - Non-bleeding duodenal ulcer with a clean ulcer base (Usama Class III). Recommendation: - Return patient to hospital [facility] for ongoing care. - NPO today. - Continue present medications. - Await pathology results. - Repeat upper endoscopy for surveillance based on pathology results. - Give Protonix (pantoprazole): initiate therapy with 80 mg IV bolus, then 8 mg/hr IV by continuous infusion for 3 days. - No aspirin, ibuprofen, naproxen, or other non-steroidal anti-inflammatory drugs. - Resume Eliquis (apixaban) at prior dose in 7 days. - The findings and recommendations were discussed with the patient. - Check hemoglobin q 6 hours for one day. COVID19 test negative. HOSPITAL COURSE: This is a 89-year-old male with history of paroxysmal atrial fibrillation with heart b lock status post pacemaker placement on Eliquis with chronic kidney disease stage III with b aseline creatinine of around 1.6, follows up with Dr. Jade, had a ground-level mechanical f all ending up with a right femur fracture. Orthopedics was consulted and patient had a surg chantel for it. Postop course was complicated in the sense that patient had a moist cough and w as suspected to have acute healthcare associated bacterial pneumonia for which he was starte d on IV Zosyn. Patient also had worsening renal function and suspected to have acute tubula r necrosis causing KATI on top of chronic kidney disease. Symptoms did not improve with the use of IV fluids. Hyperkalemia was transiently a problem but that had resolved. Nephrology was on board. No immediate indication for EXCAVATOR BACKHOE OPERATOR. Patient was also seen by physical therapy and occupational therapy and was recommended for discharging to SNF. However patient will b e going to [facility] at this time. Patient also had acute blood loss anemia postop secondary to GI bleed and required EGD with PRBC transfusion. EGD was reviewed as a shayy. As a part of the workup for low blood pressure transiently postop, echocardiogram was done which showed the above findings. A renal ultrasound was also done for evaluation for any obstructive nephropathy and was reviewed as above. Patient had indwelling Lee cathete r transiently which was removed with successful voiding trial prior to discharge. Vitals ar e stable at this time. Patient was taken off all anticoagulation because of acute blood loss anemia secondary to GI loss. Patient will be discharged today with follow-up with PMD. Vital Signs: BP 146/67 | Pulse 62 | Temp 36.6 C (97.8 F) (Oral) | Resp 18 | Ht 1.651 m (5' 5") | Wt 63.5 kg (140 lb) | SpO2 98% | BMI 23.30 kg/m Patient is awake, alert, oriented to time, place and person Skin: Warm and supple Neck: No JVD Chest: Normal vesicular breath sounds, good air entry bilaterally CVS: S1S2 audible, no murmurs heard Abdomen: Soft, non tender, normal bowel sounds, no organomegaly Extremities: No pedal edema, clubbing or cyanosis Neurologic examination: No focal sensory or motor deficits Back examination: No CVA tenderness, no spinal tenderness Disposition: [facility] Condition: Fair No discharge procedures on file. Follow up: No follow-ups on file. Discharge took 35 minutes, to include final examination, discussion of admission, and prepa ration of prescriptions, instructions for on-going care, follow-up and documentation of disc harge summary. Discharge Medications New Medications Details albuterol 90 mcg/puff inhaler Inhale 4 puffs into the lungs every 6 hours for 30 days. budesonide-formoterol 160-4.5 mcg/puff inhaler Inhale 2 puffs into the lungs Twice Daily for 30 days. aka: SYMBICORT insulin lispro 100 units/mL injection (vial) Inject 0-12 Units under the skin 3 times daily (with meals). aka: humaLOG pantoprazole 40 mg tablet Take 1 tablet by mouth 2 times daily (before meals) for 30 days. aka: PROTONIX sucralfate 1 g tablet Take 1 tablet by mouth 4 times daily (before meals and nightly) for 30 days. aka: CARAFATE Changed Medications Details ascorbic acid 500 mg tablet Take 500 mg by mouth daily. What changed: additional instructions aka: VITAMIN C carvedilol 3.125 mg tablet Take 1 tablet by mouth 2 times daily (with breakfast & dinner) for 30 days. What changed: medication strength how much to take when to take this aka: COREG meclizine 25 mg tablet Take 1 tablet by mouth 3 (three) times daily as needed. What changed: reasons to take this aka: ANTIVERT pravastatin 80 MG tablet Take 40 mg by mouth nightly. What changed: additional instructions aka: PRAVACHOL Unchanged Medications Details allopurinol 100 mg tablet Take 1 tablet by mouth daily. aka: ZYLOPRIM ferrous sulfate 325 mg tablet Take 65 mg of iron by mouth every other day. terazosin 10 MG capsule Take 10 mg by mouth daily with dinner. aka: HYTRIN Discontinued Medications apixaban 2.5 mg tablet aka: ELIQUIS furosemide 40 mg tablet aka: LASIX metFORMIN 500 mg tablet aka: GLUCOPHAGE documented in this en counter Discharge Instructions Instructions Marycarmen Judge ARNP - 12/22/2019Orthopedic Surgery Discharge Instructi ons WEIGHT BEARING INSTRUCTIONS FOR AFFECTED EXTREMITY (EXTREMITIES) [X] Weight bearing as tolerated RIGHT LOWER EXTREMITY [ ] Toe touch Weight bearing [ ] Non-weight bearing [ ] Other DVT Prophylaxis (blood clot prevention) [ ] Lovenox x 28 days total [ ] Aspirin 325mg twice a day X 28 days [X] Take your Eliquis as prescribed [ ] Not applicable WOUND CARE [ ] Do not change or remove dressing or take a shower until instructed by your Physician [X] Okay to shower WITH INCISIONS COVERED [X] Keep dressing clean and dry. Change dressing if it becomes wet or soiled. Be sure to wash hands well and keep all supp lies as clean as possible. Follow wound RN recommendations for dressing: Recommendations: cl eanse with NS, oil emulsion gauze to wound bed, cover with Opti-lock dressings. Secure with Netting. May secure with terrance wrap or coban if Netting will not stay in place. Change every 4 8hrs and PRN soilage. ACTIVITY INSTRUCTIONS POST-ORTHOPAEDIC SURGERY: Use activity aids (walker, cane, crutches, etc.) as instructed. Keep affected extremity elevated above the heart, as much as possible. Follow exercise and activity routine as instructed by physician, physical therapist, and nursing staff. Intersperse periods of activity with periods of rest. Do not sit for long periods of time. Apply ice to affected area as directed by your physician DIET: Gradually resume your normal diet. If nausea occurs, go back to liquids and gradually return to your normal diet. A balanced diet; high in nutrients will aid in wound healing. Follow any specific instructions your physician has given you regarding nutrition PAIN MANAGEMENT: If you experience pain; take your prescribed medication. While taking any pain medication or sedatives you should not: Drive a car or operate power tools, Drink any alcoholic beverages, including, but not limited to, beer and wine. COLT hose: Wear COLT hose until physician discontinues. Remove COLT hose for 30-45 minutes on ce or twice a day. Wash COLT hose in mild soap and water, rinse, and hang dry as needed You should have assistance from a family member to remove and replace. NOTIFY YOUR PHYSICIAN IF YOU EXPERIENCE ANY OF THE FOLLOWING: Persistent nausea and/or vomiting or inability to eat Unusual amount of bleeding or drainage from the surgical site Any redness or unusual swelling at the surgical site Fever over 101 Pain not relieved by prescribed medication Severe diarrhea Nosebleeds or blood in your urine or stools, if you are taking blood thinners Frequent urination and burning when you urinated or inability to urinate Follow any specific instructions your physician has given you. documented in this encounter Medications at Time of Discharge + + + +---------+ + + | Medication | Sig | Dispensed | Refills | Start | End Date | | | | | | Date | | + + + +---------+ + + | albuterol 90 | Inhale 4 puffs into | 1 | 1 | 01/01/20 | | | mcg/puff inhaler | the lungs every 6 | Inhaler | | 20 | 0 | | | hours for 30 days. | | | | | + + [...] + + + +---------+ + + | | Inhale 2 puffs into | 6 g | 0 | 01/01/20 | | | budesonide-formotero | the lungs Twice | | | 20 | 0 | | l (SYMBICORT) | Daily for 30 days. | | | | | | 160-4.5 mcg/puff | | | | | | | inhaler | | | | | | + + + +---------+ + + | carvedilol (COREG) | Take 1 tablet by | 60 | 0 | 01/01/20 | | | 3.125 mg tablet | mouth 2 times daily | tablet | | 20 | 0 | | | (with breakfast & | | | | | | | dinner) for 30 days. | | | | | + + + +---------+ + + | ferrous sulfate | Take 65 mg of iron | | 0 | 01/26/20 | | | 325 mg tablet | by mouth every other | | | 18 | | | | day. | | | | | + + + +---------+ + + | insulin lispro | Inject 0-12 Units | 10 mL | 0 | 01/01/20 | | | (HUMALOG) 100 | under the skin 3 | | | 20 | | | units/mL injection | times daily (with | | | | | | (vial) | meals). | | | | | + + [...] + + + +---------+ + + | sucralfate | Take 1 tablet by | 120 | 0 | 01/01/20 | | | (CARAFATE) 1 g | mouth 4 times daily | tablet | | 20 | 0 | | tablet | (before meals and | | | | | | | nightly) for 30 | | | | | | | days. | | | | | + + + +---------+ + + | terazosin (HYTRIN) | Take 10 mg by mouth | | 0 | 04/24/20 | | | 10 MG capsule | daily with dinner. | | | 14 | | + + + +---------+ + + | pantoprazole | Take 1 tablet by | 60 | 0 | 01/01/20 | | | (PROTONIX) 40 mg | mouth 2 times daily | tablet | | 20 | 0 | | tablet | (before meals) for | | | | | | | 30 days. | | | | | + + + +---------+ + + documented as of this encounter Progress Notes Alexander Beckford MD - 01/01/2020 2:16 PM PDT 403/403-01 LOS: 11 days To summarize previous records: Andres Guzmán is a 89 y.o. man followed for acute on chronic renal failur e. He has baseline medical/surgical history as below. He was admitted with fall and right leg fracture and is s/p NAILING IM BETSY FEMUR - GAMMA NA IL (Right) on the December with Dr. Baez. I assumed care from Dr. Tapia 12/27/19. 12/28/19 He received 2 units of packed red blood cell transfusion yesterday without any comp lications. 12/29/19 s/p UGIE with Dr. Hernandez today which showed bleeding duodenal ulcer which was caut erized. 12/30/19 12/31/19 Lee was removed. Received 10,000 units DEL. Today 01/01/20 He is hemodynamically stable with no evidence of fever/tachycardia/bradycard ia/severe hypertension or severe hypotension/hypoxia. He feels OK for the most part. Right leg does not hurt much. UO is good. He has no urinary symptoms after removal of fole y. He has no abdominal pain/nausea/vomiting. There are no documented episodes of fever/nausea/vomiting/abdominal pain/shortness of breat h at rest/chest pain/cough. He is going to be released to rehab today. Lab review from today showed slight worsening of anemia with Hb of dropping down to 8.9 and persistent but stable thrombocytopenia. Acute on chronic renal failure is improved with reduction in creatinine and stable BUN. PMH, PSH, Social history reviewed in chart. Allergies and medications reviewed. Previous hi story summarized as above. Prior lab data and imaging reviewed.Patient's old records and lab s were reviewed in detail and summarized. Significant medical/surgical history Stage III chronic kidney disease History of gout Chronic anticoagulation with apixaban for history of chronic atrial fibrillation. History of GI GI bleed in 2017. History of blood transfusion Status post pacemaker placement for which he follows up with Dr. Enoch Thompson. History of stroke in 2006 with residual right-sided weakness Type 2 diabetes mellitus. ROS: Review of systems is as per history of present illness. Otherwise a 14 organ system review of systems was done and is negative. Examination: Vitals as noted. General appearance: Frail elderly man sitting up in chair in no distress. Speech clear. Not short of breath at rest. Conversant Neck: FROM, supple Lungs: Effort fair. AE reduced B/L with scattered rales/wheeze. CV: Occasional PVC, no MRGs; normal carotid upstroke and amplitude without bruits. Telemet ry with paced rhythm. Pacemaker right anterior chest wall. Abdomen: Soft, non-tender; no masses or HSM Extremities: Minimal peripheral edema. No digital cyanosis Skin: no rash, lesions or ulcers Psych: Pleasant demeanor. Neurologic: Alert. No asterixis. Vital Signs: BP 146/67 | Pulse 62 | Temp 36.6 C (97.8 F) (Oral) | Resp 18 | Ht 1.651 m (5' 5") | Wt 63.5 kg (140 lb) | SpO2 98% | BMI 23.30 kg/m Lab Results Component Value Date NA 136 01/01/2020 K 3.7 01/01/2020 CL 103 01/01/2020 CO2 23 01/01/2020 ANIONGAP 14 01/01/2020 GLU 130 (H) 01/01/2020 BUN 81 (H) 01/01/2020 CREA 2.69 (H) 01/01/2020 LABCREA 1.68 (A) 04/01/2019 EGFR 23 (L) 01/01/2020 BUNCREARATIO 30 01/01/2020 PTH 72.57 (A) 04/01/2019 VLJO56JZ 25.2 (L) 12/27/2019 CALCIUM 8.6 01/01/2020 PHOS 5.2 (H) 12/26/2019 PHOSPHORUSST 3.5 04/01/2019 ALBUMIN 3.3 12/26/2019 MG 2.2 12/27/2019 AGRATIO 0.8 (L) 07/28/2017 BILITOT 0.5 07/28/2017 ALKPEX 50 07/28/2017 AST 12 07/28/2017 ALT 12 07/28/2017 URICACID 7.4 04/01/2019 WBC 6.66 01/01/2020 HGB 8.9 (L) 01/01/2020 LABPLAT 121 (A) 04/01/2019 LDH 154 12/25/2019 PROTCREATUR 0.942 12/25/2019 Lab Results Component Value Date PHUR 5 01/07/2019 PROTUA Trace 01/07/2019 BLOODU Negative 01/07/2019 LEUKOESTUA Negative 01/07/2019 NITRITEUA NEGATIVE 12/24/2019 LABCOLO Yellow 01/07/2019 GLUCOSEU NEGATIVE 12/24/2019 BILIRUBINUA NEGATIVE 12/24/2019 KETONES Negative 01/07/2019 Lab Results Component Value Date C3 53 (L) 12/26/2019 C4 15 12/26/2019 HCVAB <0.1 12/25/2019 Lab Results Component Value Date HBA1C 5.5 07/26/2017 LABGLYC 111 07/26/2017 Lab Results Component Value Date BNP 506 (H) 07/26/2017 BNP 614 (H) 07/25/2017 EKG from 26 Dec 2019 showed ventricular paced rhythm with frequent PVCs. Echocardiogram from 25 Dec 2019 showed ejection fraction of 55% with severe eccentric tricus pid regurgitation and severe pulmonary artery hypertension. There was also note of mild to moderate mitral regurgitation and mild aortic regurgitation. Renal sonogram from 24 Dec 2019 showed no hydronephrosis. There was noted to be renal corti prashant thinning likely to represent medical renal disease. Bilateral small renal cysts were no colt. Assessment and recommendations: 1. Acute on chronic renal failure 2. Possible acute tubular necrosis from hypotension in the postop setting. 3. Baseline chronic kidney disease stage III with a baseline creatinine of 1.7. 4. Right hip fracture secondary to mechanical fall status post open reduction and internal fixation 5. Acute blood loss anemia/UGI bleed/bleeding duodenal ulcer 6. Thrombocytopenia 7. Possible aspiration pneumonia He has acute on chronic renal failure likely secondary to ATN with hypotension in the posto p setting evidenced by acute blood loss anemia. Baseline creatinine is about 1.7 from 01 April 2019. This is likely from vascular disease with minimal proteinuria on urinalysis from December 2018. He has been following up with [facility] in [place]. He has unrecovered acute kidney injury and a higher baseline creatinine. At this time there is no clinical uremia, refractory volume overload, refractory acidosis, refractory hyperkalemia and no urgent indication of starting EXCAVATOR BACKHOE OPERATOR. Neither is there an indication for diagnostic kidney biopsy. Work-up for acute on chronic renal failure showed normal free light chain ratio from 24 December with elevated levels of kappa free light chains and lambda free light chains. C3 was borderline low with normal C4 in the presence of overall hypoalbuminemia. While the urinalysis on 23 December did show moderate blood there was no evidence of infection an d he had modest proteinuria. I doubt that he has acute vasculitis. This was likely a Lee specimen. He is markedly volume expanded but with preserved effective arterial blood volume with nono liguric state. He is not in heart failure even though the chest x-ray from the December shows bilat eral atelectasis and small effusions bilaterally. Anemia is moderate. I would recommend continuing current medications. Mobilize Incentive spirometry. Transfuse Prn. No indication for EXCAVATOR BACKHOE OPERATOR for now. Await renal recovery. On discharge he should follow up with Dr. Jade with CBC/CMP in few weeks and decide on diuretic use/DEL use. I discussed with him the concept of acute on chronic renal failure and interaction of BP/vo lume status/medications in preserving homeostasis with ESRD. He should be on a 2 gm Na diet. Please dose all medications for an eGFR of less than 10 ml/min/1.73 m2. NSAIDS/MADDEN 2 inhibitors should be avoided. Aluminum/magnesium containing antacids and magnesium/phosphate containing enemas should be avoided. Fluid should be restricted to less than 1.5 L in a 24 hr period. Strict I/O should be done. Plan of care was discussed with Dr. Godfrey. Alexander Beckford MD 01/01/2020 Portions of my previous notes have been carried over for continuity of chart review/care. He was seen earlier in the day and charting was completed later after rounds. Dictation software, Sticky, was used which may contain error for similar sounding words. Pe rsonal communication is requested for any clarification. Also please do not construe any information/orders from unsigned notes. Recommendations are solely recommendations and not orders (unless explicitly stated so) and primary ordering authority is with primary team. Prognosis is guarded in view of multiple comorbid illnesses and acute on chronic renal fail ure including but not limited to potential need for EXCAVATOR BACKHOE OPERATOR . This is a patient with multiple complex medical problems that required considerable time an d reflection in order to properly evaluate and manage. Optimization of treatment/therapy is the primary goal. Complex analysis and decision making was involved in today's visit and req uired extended time to fully and correctly evaluate this patient's unique problems and desig n a treatment strategy that is best for their specific health problems and circumstances. Deanna Hancock R N - 01/01/2020 11:45 AM [facility] came to see pt to follow up on his hip incision. RN states PA has changed previously saturated dressing and pt is DC'ing home; ride is waiting downstairs. Deanna Doe RN, CMSRN, [facility] [phone] 01/01/2020 11:46 AM arTom, Savana Irving RN - 01/01/2020 6:34 AM PDTPt sleeping comfortably most of the night. No in juries reported, tolerating diet without any nausea or vomiting, and denying all pain at thi s time. Pt's dressing still oozing, but improving throughout the night. Pt meeting discharge needs at this time. End of Chart check complete. Savana Rodgers RN 6:34 AM Alexander Rodríguez MD - 12/31/2019 6:42 PM PDTFormatting of this note might be different from the o riginal. 403/403-01 LOS: 10 days To summarize previous records: Andres Guzmán is a 89 y.o. man followed for acute on chronic renal failur e. He has baseline medical/surgical history as below. He was admitted with fall and right leg fracture and is s/p NAILING IM BETSY FEMUR - GAMMA NA [place] (Right) on the 3December [address] Baez. I assumed care from Dr. Tapia 12/27/19. 12/28/19 He received 2 units of packed red blood cell transfusion yesterday without any comp lications. 12/29/19 s/p UGIE with Dr. Hernandez today which showed bleeding duodenal ulcer which was caut erized. 12/30/19 Today 12/31/19 He is hemodynamically stable with no evidence of fever/tachycardia/bradycard ia/severe hypertension or severe hypotension/hypoxia. He feels OK for the most part. Right leg does not hurt much. UO is good. Lee was removed. He has no abdominal pain/nausea/vomiting. There are no documented episodes of fever/nausea/vomiting/abdominal pain/shortness of breat h at rest/chest pain/cough. Lab review from today shows stable anemia with Hb of 9.5. Serial Hb have been stable. Acute on chronic renal failure is now again worse with slight rise in creatinine and BUN. Acidosis is improved with reduction of anion gap with slight drop in CO2 to 21. PMH, PSH, Social history reviewed in chart. Allergies and medications reviewed. Previous hi story summarized as above. Prior lab data and imaging reviewed.Patient's old records and lab s were reviewed in detail and summarized. Significant medical/surgical history Stage III chronic kidney disease History of gout Chronic anticoagulation with apixaban for history of chronic atrial fibrillation. History of GI GI bleed in 2017. History of blood transfusion Status post pacemaker placement for which he follows up with Dr. Enoch Thompson. History of stroke in 2006 with residual right-sided weakness Type 2 diabetes mellitus. acetaminophen 1,000 mg Oral 3 times per day albuterol 4 puff Inhalation RT Q6H allopurinol 100 mg Oral Daily ascorbic acid 500 mg Oral Daily budesonide-formoterol 2 puff Inhalation RT BID carvedilol 3.125 mg Oral BID WC ferrous sulfate 325 mg Oral Every Other Day insulin lispro 0-12 Units Subcutaneous TID WC levoFLOXacin 250 mg Oral Every Other Day pantoprazole 40 mg Oral BID AC pravastatin 40 mg Oral Nightly sucralfate 1 g Oral 4x Daily AC and HS terazosin 10 mg Oral Daily with dinner dextrose 10% ROS: Review of systems is as per history of present illness. Otherwise a 14 organ system review of systems was done and is negative. Examination: Vitals as noted. General appearance: Frail elderly man sitting up in bed in no distress. Speech clear. Not s hort of breath at rest. Conversant Neck: FROM, supple Lungs: Effort fair. AE reduced B/L with scattered rales/wheeze. CV: Occasional PVC, no MRGs; normal carotid upstroke and amplitude without bruits. Telemet ry with paced rhythm. Pacemaker right anterior chest wall. Abdomen: Soft, non-tender; no masses or HSM Extremities: Minimal peripheral edema. No digital cyanosis Skin: no rash, lesions or ulcers Psych: Pleasant demeanor. Neurologic: Alert. No asterixis. Vital Signs: BP 128/58 | Pulse 58 | Temp 36.6 C (97.9 F) (Oral) | Resp 16 | Ht 1.651 m (5' 5") | Wt 63.5 kg (140 lb) | SpO2 97% | BMI 23.30 kg/m Lab Results Component Value Date NA 136 12/31/2019 K 4.0 12/31/2019 CL 107 12/31/2019 CO2 20 (L) 12/31/2019 ANIONGAP 13 12/31/2019 GLU 134 (H) 12/31/2019 BUN 83 (H) 12/31/2019 CREA 3.3 (H) 12/31/2019 LABCREA 1.68 (A) 04/01/2019 EGFR 18 (L) 12/31/2019 BUNCREARATIO 25 12/31/2019 PTH 72.57 (A) 04/01/2019 CMLV64PM 25.2 (L) 12/27/2019 CALCIUM 8.5 12/31/2019 PHOS 5.2 (H) 12/26/2019 PHOSPHORUSST 3.5 04/01/2019 ALBUMIN 3.3 12/26/2019 MG 2.2 12/27/2019 AGRATIO 0.8 (L) 07/28/2017 BILITOT 0.5 07/28/2017 ALKPEX 50 07/28/2017 AST 12 07/28/2017 ALT 12 07/28/2017 URICACID 7.4 04/01/2019 WBC 7.55 12/31/2019 HGB 9.5 (L) 12/31/2019 LABPLAT 121 (A) 04/01/2019 LDH 154 12/25/2019 PROTCREATUR 0.942 12/25/2019 Lab Results Component Value Date PHUR 5 01/07/2019 PROTUA Trace 01/07/2019 BLOODU Negative 01/07/2019 LEUKOESTUA Negative 01/07/2019 NITRITEUA NEGATIVE 12/24/2019 LABCOLO Yellow 01/07/2019 GLUCOSEU NEGATIVE 12/24/2019 BILIRUBINUA NEGATIVE 12/24/2019 KETONES Negative 01/07/2019 Lab Results Component Value Date C3 53 (L) 12/26/2019 C4 15 12/26/2019 HCVAB <0.1 12/25/2019 Lab Results Component Value Date HBA1C 5.5 07/26/2017 LABGLYC 111 07/26/2017 Lab Results Component Value Date BNP 506 (H) 07/26/2017 BNP 614 (H) 07/25/2017 EKG from 26 Dec 2019 showed ventricular paced rhythm with frequent PVCs. Echocardiogram from 25 Dec 2019 showed ejection fraction of 55% with severe eccentric tricus pid regurgitation and severe pulmonary artery hypertension. There was also note of mild to moderate mitral regurgitation and mild aortic regurgitation. Renal sonogram from 24 Dec 2019 showed no hydronephrosis. There was noted to be renal corti prashant thinning likely to represent medical renal disease. Bilateral small renal cysts were no colt. Assessment and recommendations: 1. Acute on chronic renal failure 2. Possible acute tubular necrosis from hypotension in the postop setting. 3. Baseline chronic kidney disease stage III with a baseline creatinine of 1.7. 4. Right hip fracture secondary to mechanical fall status post open reduction and internal fixation 5. Acute blood loss anemia/UGI bleed/bleeding duodenal ulcer 6. Thrombocytopenia 7. Possible aspiration pneumonia He has acute on chronic renal failure likely secondary to ATN with hypotension in the posto p setting evidenced by acute blood loss anemia. Baseline creatinine is about 1.7 from 01 April 2019. This is likely from vascular disease with minimal proteinuria on urinalysis from December 2018. He has been following up with ENEDINA mena in [place]. He has unrecovered acute kidney injury and a higher baseline creatinine. At this time there is no clinical uremia, refractory volume overload, refractory acidosis, refractory hyperkalemia and no urgent indication of starting EXCAVATOR BACKHOE OPERATOR. Neither is there an indication for diagnostic kidney biopsy. Work-up for acute on chronic renal failure showed normal free light chain ratio from 24 December with elevated levels of kappa free light chains and lambda free light chains. C3 was borderline low with normal C4 in the presence of overall hypoalbuminemia. While the urinalysis on 23 December did show moderate blood there was no evidence of infection an d he had modest proteinuria. I doubt that he has acute vasculitis. This was likely a Lee specimen. He is markedly volume expanded but with preserved effective arterial blood volume with nono liguric state. He is not in heart failure even though the chest x-ray from the December shows bilat eral atelectasis and small effusions bilaterally. I would recommend continuing current medications. Mobilize Incentive spirometry. Transfuse Prn. No indication for EXCAVATOR BACKHOE OPERATOR for now. Await renal recovery. I discussed with him the concept of acute on chronic renal failure and interaction of BP/vo lume status/medications in preserving homeostasis with ESRD. He should be on a 2 gm Na diet. Please dose all medications for an eGFR of less than 10 ml/min/1.73 m2. NSAIDS/MADDEN 2 inhibitors should be avoided. Aluminum/magnesium containing antacids and magnesium/phosphate containing enemas should be avoided. Fluid should be restricted to less than 1.5 L in a 24 hr period. Strict I/O should be done. Plan of care was discussed with Dr. Godfrey. Alexander Beckford MD 12/31/2019 Portions of my previous notes have been carried over for continuity of chart review/care. He was seen earlier in the day and charting was completed later after rounds. Dictation software, Sticky, was used which may contain error for similar sounding words. Pe rsonal communication is requested for any clarification. Also please do not construe any information/orders from unsigned notes. Recommendations are solely recommendations and not orders (unless explicitly stated so) and primary ordering authority is with primary team. Prognosis is guarded in view of multiple comorbid illnesses and acute on chronic renal fail ure including but not limited to potential need for EXCAVATOR BACKHOE OPERATOR . This is a patient with multiple complex medical problems that required considerable time an d reflection in order to properly evaluate and manage. Optimization of treatment/therapy is the primary goal. Complex analysis and decision making was involved in today's visit and req uired extended time to fully and correctly evaluate this patient's unique problems and desig n a treatment strategy that is best for their specific health problems and circumstances. Regino Montague MD - 12/31/2019 11:38 AM PDT Service: Hospitalist Progress Note Hospital Day: LOS: 10 days Post-Op Day: 2 Days Post-Op Procedure: Procedure(s) (LRB): EGD (N/A) SUBJECTIVE Overall uncomfortable in bed. Hemoglobin has been stable. On oral Levaquin. Day 7 of ant ibiotics for HCAP. Renal function remains poor. We will try to switch over to oral Protoni x today and remove Lee catheter with voiding trial. Scheduled Medications acetaminophen 1,000 mg Oral 3 times per day albuterol 4 puff Inhalation RT Q6H allopurinol 100 mg Oral Daily ascorbic acid 500 mg Oral Daily budesonide-formoterol 2 puff Inhalation RT BID carvedilol 3.125 mg Oral BID WC ferrous sulfate 325 mg Oral Every Other Day insulin lispro 0-12 Units Subcutaneous TID WC levoFLOXacin 250 mg Oral Every Other Day pantoprazole 40 mg Oral BID AC pravastatin 40 mg Oral Nightly sucralfate 1 g Oral 4x Daily AC and HS terazosin 10 mg Oral Daily with dinner Continuous Infusions dextrose 10% OBJECTIVE Vital Signs: Vitals with Comments 12/30/2019 12/30/2019 12/31/2019 12/31/2019 SYSTOLIC 118 105 125 131 DIASTOLIC 53 52 56 56 BP Comments - - - - Pulse 72 60 60 73 Temp 98.3 97.6 98.6 97.6 Resp 16 19 16 Weight - - - - Height - - - - SPO2 - 96 98 98 BMI - - - - Pain Score - - - - Pain Loc - - - - Patient is awake, alert, oriented to time, place and person Skin: Warm and supple Neck: No JVD Chest: Normal vesicular breath sounds, good air entry bilaterally CVS: S1S2 audible, no murmurs heard Abdomen: Soft, non tender, normal bowel sounds, no organomegaly Extremities: No pedal edema, clubbing or cyanosis Neurologic examination: No focal sensory or motor deficits Back examination: No CVA tenderness, no spinal tenderness REVIEW OF SYSTEMS: Denies any chest pain, shortness of breath, nausea, vomiting, dysuria or hematuria. DATA CBC: Lab Results Component Value Date WBC 7.55 12/31/2019 RBC 2.92 (L) 12/31/2019 RBC 2.74 (A) 04/01/2019 HGB 9.5 (L) 12/31/2019 HCT 28.3 (L) 12/31/2019 HCT 21 (LL) 12/22/2019 MCV 96.9 12/31/2019 PLT 83 (L) 12/31/2019 BMP: Lab Results Component Value Date NA 136 12/31/2019 K 4.0 12/31/2019 CL 107 12/31/2019 CO2 20 (L) 12/31/2019 BUN 83 (H) 12/31/2019 LABCREA 1.68 (A) 04/01/2019 CREA 3.3 (H) 12/31/2019 EGFR 18 (L) 12/31/2019 GLU 134 (H) 12/31/2019 EGD showed the following: - LA Grade C reflux esophagitis. Rule out Dumont's esophagus. Biopsied. - Small hiatal hernia. - Erythematous mucosa in the stomach. Biopsied. - Oozing duodenal ulcer with a visible vessel. Injected. Treated with bipolar cautery. - Non-bleeding duodenal ulcer with a clean ulcer base (Usama Class III). Recommendation: - Return patient to [facility] for ongoing care. - NPO today. - Continue present medications. - Await pathology results. - Repeat upper endoscopy for surveillance based on pathology results. - Give Protonix (pantoprazole): initiate therapy with 80 mg IV bolus, then 8 mg/hr IV by continuous infusion for 3 days. - No aspirin, ibuprofen, naproxen, or other non-steroidal anti-inflammatory drugs. - Resume Eliquis (apixaban) at prior dose in 7 days. - The findings and recommendations were discussed with the patient. - Check hemoglobin q 6 hours for one day. PROBLEM LIST Principal Problem: Acute GI bleeding Active Problems: Permanent atrial fibrillation Hypertension goal BP (blood pressure) < 140/80 Type 2 diabetes mellitus with kidney complication, without long-term current use of insul in Chronic diastolic heart failure History of stroke Closed comminuted intertrochanteric fracture of right femur with routine healing Acute renal failure superimposed on stage 3 chronic kidney disease Weakness generalized Difficulty in walking Bacterial pneumonia Acute post-hemorrhagic anemia Bleeding duodenal ulcer Resolved Problems: * No resolved hospital problems. * ASSESSMENT & PLAN Principal problem: Right rib fracture: Status post surgery. Orthopedics on board. PT OT has been on board. Because of GI bleed, patient not on any anticoagulation. SCDs for DVT prophylaxis. Secondary diagnosis: Permanent atrial fibrillation status post pacemaker placement: Heart rate stable. Blood pr essure has been stable. Remains on carvedilol. Anticoagulation held because of GI bleed wi th acute blood loss anemia status post PRBC transfusion., Peptic ulcer disease with GI bleed: EGD reviewed as above. Patient remains on oral iron hansen pplements. Also on Carafate and oral PPI twice daily. Diabetes mellitus: Continue with insulin sliding scale 3 times a day with meals. Continue statin. Not on any aspirin because of GI bleed. Cannot get ACEI/ARB because of renal failu re. Allopurinol for gout. History of stroke: Continue with statin. Not on anticoagulation because of the GI bleed. Suspected HCA bacterial pneumonia: Day 7 of 7 antibiotics to be completed today. Patient r emains on Symbicort and as needed albuterol inhaler. Acute kidney injury on chronic kidney disease stage III: Baseline creatinine level 1.6. Ne phrology has been on board. Suspected to be secondary to ATN. We will remove the Lee cat heter today in preparation for possible discharge in a.m. with a voiding trial. Up and around activity and incentive spirometry advised. Disposition: Yet to seen how he does clinically. Plan for discharge to swing bed tomorrow. When asked whether I needed to talk to any family members, patient said that he was alive an d did not request any further conversation with family members other than himself. Code Status: Full Code Regino Greene MD 12/31/2019 11:38 AM [place] [facility] - 12/31/2019 10:58 AM PDT . ORTHOPEDIC SURGERY PROGRESS NOTE Patient Name: Andres Guzmán Patient : 1930 Gender: male Date of admission: 12/21/2019 Post-operative day: 9 Status post Procedure(s) (LRB): EGD (N/A) Assessment and Plan The patient chart and medications were reviewed in detail and the patient was seen and exam ined. Patient cleared from Ortho standpoint for discharge to swing bed. Continue surgical site dr becerril changes per wound RN recommendations. Encourage protein supplements between meals and protein with every meal to promote wound healing. Other instructions per discharge instruct ions. No anticipated change in admission status. Disposition: Plan to discharge today, to Swing Bed , once medically stable and cleared by P T/OT. Pain Acute post-operative pain. Pain is adequately controlled on current pain regimen. Continue current pain medications. Continue to mobilize patient: pre-medicate 30-40 minutes prior to activity. PT/OT: Mobilize with PT/OT: weight bear as tolerated and mobility precautions as ordered DVT/PE prophylaxis: Continue Eliquis on hold for 1 week total per GI specialist per order, SCDs, early mobilization. Bowel Care: Continue stool softeners and laxatives per order, mobilization, encourage fluid s. Active comorbid conditions include: - dysrhythmias - CHF - hypertension - pacemaker - PVD - endocrine problem - diabetes; type 2; controlled (Hgb A1C < 6.5); without complications - GERD - CVA - anemia - Drugs/Alcohol/Tobacco - tobacco use Special Issues *Acute blood loss anemia due to surgical/ post-surgical blood loss and low baseline H&H pre operatively. Labs on 12/31/2019: Hemoglobin 9.5 g/dL; Hematocrit 28.3 %; Treatment plan: bloo d transfusion, lab follow up and EGD showed GIB, treatment per GI specialist and hospitalist ; stable *Acute kidney injury: rise in serum creatinine, evidenced by creatinine elevation on 020: Creatinine 3.3 mg/dL. Intake/Output Summary (Last 24 hours) at 12/31/2019 1102 Last data filed at 12/31/2019 0824 Gross per 24 hour Intake 1720 ml Output 600 ml Net 1120 ml . Treatment plan: treatment per hospitalist, improved, stable. *Hospital acquired pneumonia - on PO Levaquin, treatment per hospitalist. *Kenisha-incision blisters and tape adhesion injuries: see wound RN note for treatment. [facility], continue wound care at swing bed, send with extra dressing supplies. *Metabolic bone disorder: elevated PTH and phosphorus. Treatment per chainstitch elastic attacher (see thei r note). Subjective No chest pain, no shortness of breath, no abdominal pain, no nausea or vomiting Objective Exam A&Ox3. Appears comfortable. Surgical dressing some serosanguineous drainage at the top of the dressing, rest is CDI, 3+ pitting edema around the area. No calf tenderness to compression. Sensation is intact to light touch, motor intact, brisk capillary refill. Vital Signs Vitals: 12/31/19 0733 BP: 131/56 Pulse: 73 Resp: 16 Temp: 36.4 C (97.6 F) Min/Max Temp past 24 hours: Temp Av.7 C (98 F) Min: 36.4 C (97.6 F) Max: 37 C (98.6 F) Labs Recent Results (from the past 24 hour(s)) POC Glucose Result Value Ref Range Glucose, POC 128 (H) 65 - 99 mg/dL POC Glucose Result Value Ref Range Glucose, POC 130 (H) 65 - 99 mg/dL POC Glucose Result Value Ref Range Glucose, POC 192 (H) 65 - 99 mg/dL CBC with Differential Result Value Ref Range WBC 7.55 3.80 - 11.00 K/uL RBC 2.92 (L) 4.20 - 5.70 M/uL Hemoglobin 9.5 (L) 13.2 - 17.0 g/dL Hematocrit 28.3 (L) 39.0 - 50.0 % MCV 96.9 80.0 - 100.0 fl MCH 32.5 27.0 - 34.0 pg MCHC 33.6 32.0 - 35.5 g/dL RDW-SD 52.8 37 - 53 fl Platelet Count 83 (L) 150 - 400 K/uL MPV 11.3 fl Diff Type AUTOMATED % nRBC 0.3 (H) 0 /100WBC % Neutrophils 74.00 % IMMATURE GRANULOCYTE 0.90 % % Lymphocytes 10.60 % Monocyte % 10.20 % Eosinophils % 4.00 % Basophils % 0.30 % Neutrophils, Absolute 5.59 1.90 - 7.40 K/uL IMMATURE GRANS AB 0.07 0.00 - 0.07 K/uL Absolute Lymphocytes 0.80 (L) 1.00 - 3.90 K/uL Absolute Monocytes 0.77 0.00 - 0.80 K/uL Eosinophils, Absolute 0.30 0.00 - 0.50 K/uL Basophils, Absolute 0.02 0.00 - 0.10 K/uL Basic Metabolic Panel Result Value Ref Range Na 136 135 - 145 mmol/L K 4.0 3.5 - 4.9 mmol/L Cl 107 99 - 109 mmol/L CO2 20 (L) 23 - 32 mmol/L Anion Gap 13 5 - 20 mmol/L Glucose 134 (H) 65 - 99 mg/dL BUN 83 (H) 8 - 25 mg/dL Creatinine 3.3 (H) 0.70 - 1.30 mg/dL BUN/Creatinine Ratio 25 Calcium 8.5 8.5 - 10.5 mg/dL Estimated GFR 18 (L) >60 mL/min/1.73m2 POC Glucose Result Value Ref Range Glucose, POC 154 (H) 65 - 99 mg/dL Patient has been updated on their condition and plan for treatment. Questions have been ans wered to their satisfaction. Further management to be dictated by patient's clinical conditi on, in coordination with multidisciplinary team. This case discussed with Dr. Baez, Dr. Greene, bedside RN and CM. Electronically signed by: ENEDINA Ramos, 12/31/2019 10:58 AM Jacek, Lelia Almonte RN - 12/30/2019 2:4 5 PM PDT TC received regarding Right hip incision dressing becoming saturated. Pt states during asse ssment that he believes he is allergic to Silicone, as he has had problems in the past with silicone and adhesives. Will update orders to include no silicone dressings. Floor RN in room, Consider having surgical team assess this incision line, complications ap pear to be related to blistering to kenisha-wound skin, although surgical team may want to asse ss. Will need offloading of pressure at all times to heels/buttocks. Please follow SPOT precaut ions. S - see it, score it - evaluate wound at least once per shift and document P - Protect - Use appropriate dressing, offloading, and other preventatives O - Optimize layers - Keep as few layers between patient and offloading mattress T - Turn - Turn patient and offload weight every two hours. Limit chair Q1 hr. 12/30/19 1441 Visit Information Visit Type Wound re-assessment Skin Interventions Pressure Reduction Devices pressure-redistributing mattress utilized Pressure Reduction Techniques frequent weight shift encouraged Wound 12/22/19 1024 Incision Right hip Placement Date/Time: 12/22/19 1024 Primary Wound Type: Incision Side: Right Location: h ip Wound WDL ex Dressing Appearance moist drainage Base bleeding;ecchymotic Wound Base Comment Scattered areas of incision are oozing related to blistering to incision line Periwound Area ecchymotic;blistered Drainage Characteristics/Odor serosanguineous Drainage Amount moderate Wound Cleaning cleansed with;sterile normal saline Dressing (OIl emulsion gauze/Optilock/Netting) Wound Image Visit Summary Discipline Providing Treatment WOCN Next Wound/Ostomy Visit Date 01/01/20 Recommendations: cleanse with NS, oil emulsion gauze to wound bed, cover with Opti-lock osmar ssings. Secure with Netting. May secure with terrance wrap or coban if Netting will not stay in p lace. Change every 48hrs and PRN soilage. Wound care will follow up later this week to see how dressing is working for pt. PURVI Goodrich RN CWON 12/30/19 14:53 ashmi, Jerry Malik MD - 12/30/2019 1:46 PM PDT Service: Hospitalist Daily Progress Note Andres Guzmán 89 y.o. : 1930 SEX: male PCP: Barbara Gilman MD Hospital Day: LOS: 9 SUBJECTIVE Patient Summary: Patient is an 89-year-old male with past medical history of HTN, DM Type 2, CKD Stage III w ith baseline creatinine 1.7 who was admitted as a transfer from [facility] due t o a mechanical fall sustaining right hip fracture. Orthopedic services involved and Dr. Pinon on performed ORIF without any complications. Postoperatively patient had episodes of hypoten jose a to worsening kidney functions and a rise in creatinine up to4.4 with EGFR of 13. His H &H also dropped requiring 2 units of PRBC transfusions but despite this and IV fluids for hy dration his kidney functions did not improve. Nephrology services consulted and Dr. Willie garcia, renal ultrasound done which was negative for hydronephrosis but showed renal cortic al thinning to likely resent medical renal disease. Hospital stay was complicated by episod es of lethargy and confusion. He developed cough symptoms and CO VID 19 was tested which wa s negative. Chest x-ray showed mild bilateral interstitial opacities consistent with either pulmonary edema or atypical pneumonia. He was started IV Zosyn for possible healthcare asso ciated pneumonia. Due to pneumonia and deteriorating renal functions his discharge was linh yed. PT/OT services recommended IPR but Dr. Reed did not have beds and recommended SNF for rehabilitation. Case management worked in finding placement and he was accepted by [facility] in [place], [place] for rehabilitation purposes. Hospital stay was also complicated by episodes of melena and a drop in H&H due to GI bleeding. He w as given another 2 units of PRBC transfusions which helped and H&H improved to 9.4 range. GI services consulted and Dr. Hernandez performed EGD which showed reflux esophagitis, erythematou s mucosa in the stomach, oozing duodenal ulcer with visible vein which was treated with bipo lar cautery and a non-bleeding duodenal ulcer with clean base. He was kept on Protonix drip for 48 hours and then due to malfunction of the IV line he was transitioned to Protonix IV 40 mg twice daily. Events Overnight: Patient seen and examined. Overnight events noted. Patient was seen awake and more alert to day. He reported feeling better and more energetic this morning. He took few steps with PT s ervices in the room. He denied any nausea or vomiting and no abdominal pain, shortness of br eath, or cough reported. No melena or BRBPR noted. Has weakness which is slowly improving. A ppetite is fair and improving. Remained afebrile. Scheduled Medications acetaminophen, 500 mg, Oral, Once PRN Or acetaminophen, 500 mg, Oral, Once PRN Or acetaminophen, 650 mg, Rectal, Once PRN acetaminophen, 1,000 mg, Oral, 3 times per day albuterol, 2.5 mg, Nebulization, Once PRN albuterol, 4 puff, Inhalation, RT Q6H allopurinol, 100 mg, Oral, Daily aluminum & magnesium hydroxide-simethicone, 30 mL, Oral, Q4H PRN ascorbic acid, 500 mg, Oral, Daily budesonide-formoterol, 2 puff, Inhalation, RT BID carvedilol, 3.125 mg, Oral, BID WC dextrose, 12.5-25 g, Intravenous, PRN And dextrose 10%, , Intravenous, Continuous PRN dextrose, 12.5-25 g, Intravenous, Q15 Min PRN docusate sodium, 100 mg, Oral, BID PRN ferrous sulfate, 325 mg, Oral, Every Other Day HYDROmorphone, 1 mg, Intravenous, Q8H PRN insulin lispro, 0-12 Units, Subcutaneous, TID WC [START ON 12/31/2019] levoFLOXacin, 250 mg, Oral, Every Other Day meclizine, 25 mg, Oral, Q8H PRN metoclopramide, 5 mg, Intravenous, Q6H PRN ondansetron, 4 mg, Oral, Q6H PRN ondansetron, 4 mg, Intravenous, Q4H PRN ondansetron, 4 mg, Intravenous, Q4H PRN pantoprazole, 40 mg, Intravenous, BID pravastatin, 40 mg, Oral, Nightly promethazine, 12.5 mg, Intravenous, Q6H PRN senna, 8.6 mg, Oral, BID PRN sucralfate, 1 g, Oral, 4x Daily AC and HS terazosin, 10 mg, Oral, Daily with dinner Continuous Infusions . PRN Medications Current Facilty-Administered PRN Medications Ordered in [facility] Medication Dose Route Frequency Provider Last Rate Last Dose acetaminophen (TYLENOL) tablet 500 mg 500 mg Oral Once PRN Maco Wolf CRNA Or acetaminophen (TYLENOL) 160 mg/5 mL liquid 500 mg 500 mg Oral Once PRN Maco Wolf CRNA Or acetaminophen (TYLENOL) suppository 650 mg 650 mg Rectal Once PRN Maco Wolf CRNA albuterol 2.5 mg/3 mL nebulizer solution 2.5 mg 2.5 mg Nebulization Once PRN Maco bunn CRNA aluminum & magnesium hydroxide-simethicone (MAALOX PLUS REGULAR STRENGTH) 200-200-20 mg /5 mL suspension 30 mL 30 mL Oral Q4H PRN Lamont Hernandez MD dextrose 50% injection 12.5-25 g 12.5-25 g Intravenous PRN Lamont Hernandez MD 25 g at 12/22/19 0843 And dextrose 10% (D10W) infusion Intravenous Continuous PRN Lamont Hernandez MD dextrose 50% injection 12.5-25 g 12.5-25 g Intravenous Q15 Min PRN Maco Wolf CRNA docusate sodium (COLACE) capsule 100 mg 100 mg Oral BID PRN Lamont Hernandez MD HYDROmorphone (DILAUDID) injection 1 mg 1 mg Intravenous Q8H PRN Lamont Hernandez MD 0 .5 mg at 12/26/19 1659 meclizine (ANTIVERT) tablet 25 mg 25 mg Oral Q8H PRN Lamont Hernandez MD 25 mg at 0512/08 1011 metoclopramide (REGLAN) 5 mg/mL injection 5 mg 5 mg Intravenous Q6H PRN Jerry Chino MD ondansetron (ZOFRAN ODT) disintegrating tablet 4 mg 4 mg Oral Q6H PRN Gage Pearson ondansetron (ZOFRAN) injection 4 mg 4 mg Intravenous Q4H PRN Maco Wolf CRNA ondansetron (ZOFRAN) injection 4 mg 4 mg Intravenous Q4H PRN Jerry Chino MD promethazine (PHENERGAN) (IV ONLY) injection 12.5 mg 12.5 mg Intravenous Q6H PRN Jerry Chino MD 12.5 mg at 12/29/19 1115 senna (SENOKOT) tablet 8.6 mg 8.6 mg Oral BID PRN Lamont Hernandez MD Allergy: Allergies Allergen Reactions Codeine Nausea And Vomiting and Vertigo Morphine And Related Nausea Only Nausea, Slow to recover OBJECTIVE Vital Signs: Vitals: 12/30/19 1058 BP: 141/60 Pulse: 60 Resp: Temp: 36.6 C (97.9 F) Intake/Output Summary (Last 24 hours) at 12/30/2019 1346 Last data filed at 12/30/2019 0346 Gross per 24 hour Intake 452 ml Output 1025 ml Net -573 ml Examination: Constitutional: Patient was more awake and alert and responded to questions appropriately. Appears weak but not in acute distress. HEENT: Head: Normocephalic and Atraumatic. Nose: Nose normal. Mouth/Throat: Oropharynx is clear and moist. Eyes: No conjunctiva injection. EOM Intact. PERRLA. No scleral icterus. Neck: Neck supple. No JVD present. No tracheal deviation present. No thyromegaly Cardiovascular: Atrial Fibrillation, no murmur heard and no friction rub. Pulmonary/Chest: + Fewer rales at bases and mid zones with few rhonchi's. Abdominal: Soft, BS present, no distension, no ascites. No rebound tenderness and no guardi ng. Musculoskeletal: Moves all limbs, limited ROM RLE, + Dressing in place at right hip incisio n site. + Weakness and difficulty in walking. No pedal edema. Neurological: No Focal neurologic deficits, + Weakness and Difficulty in walking due to fa ll and hip fracture. No CN deficits. Skin: Skin is warm and dry. No ecchymoses, or abrasions. Psychiatric: No Confusion, No agitation, Restricted affect and Judgement is fair. LABS: Recent Results (from the past 24 hour(s)) Hemoglobin and Hematocrit Result Value Ref Range Hemoglobin 9.8 (L) 13.2 - 17.0 g/dL Hematocrit 29.5 (L) 39.0 - 50.0 % POC Glucose Result Value Ref Range Glucose, POC 128 (H) 65 - 99 mg/dL Hemoglobin and Hematocrit Result Value Ref Range Hemoglobin 9.8 (L) 13.2 - 17.0 g/dL Hematocrit 29.6 (L) 39.0 - 50.0 % POC Glucose Result Value Ref Range Glucose, POC 109 (H) 65 - 99 mg/dL CBC with Differential Result Value Ref Range WBC 6.69 3.80 - 11.00 K/uL RBC 2.88 (L) 4.20 - 5.70 M/uL Hemoglobin 9.3 (L) 13.2 - 17.0 g/dL Hematocrit 28.3 (L) 39.0 - 50.0 % MCV 98.3 80.0 - 100.0 fl MCH 32.3 27.0 - 34.0 pg MCHC 32.9 32.0 - 35.5 g/dL RDW-SD 55.7 (H) 37 - 53 fl Platelet Count 85 (L) 150 - 400 K/uL MPV 10.8 fl Diff Type AUTOMATED % nRBC 0.0 0 /100WBC % Neutrophils 72.60 % IMMATURE GRANULOCYTE 0.70 % % Lymphocytes 10.50 % Monocyte % 12.10 % Eosinophils % 3.70 % Basophils % 0.40 % Neutrophils, Absolute 4.85 1.90 - 7.40 K/uL IMMATURE GRANS AB 0.05 0.00 - 0.07 K/uL Absolute Lymphocytes 0.70 (L) 1.00 - 3.90 K/uL Absolute Monocytes 0.81 (H) 0.00 - 0.80 K/uL Eosinophils, Absolute 0.25 0.00 - 0.50 K/uL Basophils, Absolute 0.03 0.00 - 0.10 K/uL POC Glucose Result Value Ref Range Glucose, POC 103 (H) 65 - 99 mg/dL Basic Metabolic Panel Result Value Ref Range Na 141 135 - 145 mmol/L K 4.0 3.5 - 4.9 mmol/L Cl 107 99 - 109 mmol/L CO2 21 (L) 23 - 32 mmol/L Anion Gap 17 5 - 20 mmol/L Glucose 92 65 - 99 mg/dL BUN 70 (H) 8 - 25 mg/dL Creatinine 3.04 (H) 0.70 - 1.30 mg/dL BUN/Creatinine Ratio 23 Calcium 8.6 8.5 - 10.5 mg/dL Estimated GFR 20 (L) >60 mL/min/1.73m2 POC Glucose Result Value Ref Range Glucose, POC 128 (H) 65 - 99 mg/dL PROBLEM LIST Principal Problem: Acute GI bleeding Active Problems: Closed comminuted intertrochanteric fracture of right femur with routine healing Acute renal failure superimposed on stage 3 chronic kidney disease Bacterial pneumonia Acute post-hemorrhagic anemia Bleeding duodenal ulcer Permanent atrial fibrillation Hypertension goal BP (blood pressure) < 140/80 Type 2 diabetes mellitus with kidney complication, 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 Stable with no other episodes of melena or BRBPR. Will transition to IV Protonix 40 mg BID for 24 hours followed by oral Protonix BID for 8 weeks, continue Caraf ate 1 g every 6 hours as scheduled and monitor CBC daily. Acute Post Hemorrhagic Anemia: H&H is stable at 9.3 range this AM, he received another 2 un its of PRBC transfusions due to GI bleeding. S/P EGD by Dr. Hernandez and appreciate his help, w ill hold Eliquis for a week, continue IV Protonix for 24 hours then switch to oral PPI's as mentioned above and monitor H&H periodically. Bleeding Duodenal Ulcer: S/P EGD which showed erythematous mucosa in the stomach, oozing du odenal ulcer with visible vein which was treated with bipolar cautery and another non-bleedi ng duodenal ulcer with clean base as mentioned above. Will continue Protonix IV 40 mg BID fo r another 24 hours then to oral protonix 40 mg BID for 8 weeks. Continue to hold Eliquis til l 01/05/2020 due to risks of bleeding. Closed Rght Femur Hip Fracture: Secondary to a fall, Orthopedic is on board and Dr. Baez performed ORIF without any complications Clinically stable but remains week, he is accepted at [facility] in [place] with discharge plans tomorrow for rehabilit ation if remains stable. Will continue PT/OT, wound care services and monitor progress. Acute Kidney Injury on Chronic Kidney Disease Stage 3: This was likely due to ATN precipit ated by dehydration & blood loss, Clinically stable and creatinine is down to 3.0 range, Nep hrology service on board and Dr. Beckford following. Appreciate his help & monitor BMP. Bacterial Pneumonia: Likely healthcare associated, COVID-19 test was negative. Stable and i mproving, will continue oral Levaquin 250 mg every 48 hours for 4 more doses and give Symbic ort and Albuterol Inhalers as scheduled or symptomatic relief and monitor. Permanent Atrial Fibrillation: S/P Pacemaker placement in the past, currently stable and ra te controlled. Will continue Coreg BID but hold Eliquis for 7 days as per GI recommendations due to risks of bleeding and monitor hemodynamics. Diabetes Mellitus Type 2 with Renal Manifestations: Blood sugar remain stable, he remains o ff Metformin due elevated creatinine. Will continue Accu-Cheks and give Humalog insulin per sliding scale and monitor. Chronic Diastolic Congestive Heart Failure: Stable and not in acute exacerbation, will cont inue Coreg at 3.125 mg BID but hold Lasix till hydration status is improved. History of Stroke: Stable, has difficulty in walking due to hip fracture and deconditioning . Will hold Eliquis for 7 days due to risks of bleeding but continue Lipitor as scheduled an d monitor. Generalized Weakness / Difficulty in Walking: Multifactorial, secondary to fall, hip fract ure and deconditioning. PT/OT services following, discharge plans to [facility] in [facility] tomorrow. DVT prophylaxis with SCD's only due to risks of bleeding. Discharge plans tomorrow to [facility] in [place], [place] for rehabi litation. Called his daughter Ms. Huerta and left a message with updated information at phone number [phone]. Jerry Chino MD 12/30/2019 turgill, DALILA Keys - 12/30/2019 12:35 PM PDTFormatting of this note might be different from the [facility] Service: Gastroenterology Consult Progress Note Hospital Day: LOS: 9 days SUBJECTIVE Patient Summary: This is an 89-year-old male with multiple medical problems and a his tory of hypertension, diabetes, CKD stage III who was transferred from [facility] t o a fall and he sustained a right hip fracture. He underwent surgery without any complicati ons. He was noted to have a drop in hemoglobin with multiple episodes of melena within the past 24 to 48 hours. He had been on Eliquis however this was stopped 2 days ago. He was gi fiona packed RBC transfusions and his H&H improved appropriately. He remained hemodynamic ally stable. Events Overnight: Had EGD yesterday with duodenal ulcer with visible vessel. Injected and treated with gold probe. Doing very well. Tolerating diet. Hgb stable. Scheduled Medications acetaminophen 1,000 mg Oral 3 times per day albuterol 4 puff Inhalation RT Q6H allopurinol 100 mg Oral Daily ascorbic acid 500 mg Oral Daily budesonide-formoterol 2 puff Inhalation RT BID carvedilol 3.125 mg Oral BID WC ferrous sulfate 325 mg Oral Every Other Day insulin lispro 0-12 Units Subcutaneous TID WC [START ON 12/31/2019] levoFLOXacin 250 mg Oral Every Other Day pravastatin 40 mg Oral Nightly sucralfate 1 g Oral 4x Daily AC and HS terazosin 10 mg Oral Daily with dinner Continuous Infusions dextrose 10% pantoprazole 8 mg/hr (12/30/19 0926) PRN Medications acetaminophen OR acetaminophen OR acetaminophen, albuterol, aluminum & magnesium hy droxide-simethicone, Hypoglycemia Management AND POCT Glucose AND dextrose AND d extrose 10%, dextrose, docusate sodium, HYDROmorphone, meclizine, metoclopramide, ondansetro n, ondansetron, ondansetron, promethazine, senna OBJECTIVE Vital Signs: BP 141/60 | Pulse 60 | Temp 36.6 C (97.9 F) (Oral) | Resp 16 | Ht 1.651 m (5' 5") | Wt 63.5 kg (140 lb) | SpO2 97% | BMI 23.30 kg/m GENERAL: Well developed, well nourished, in no distress. Appears approximately stated age. HEENT: Normocephalic, atraumatic. EYES: PERRL, sclerae anicteric, no xanthelsasmas MOUTH: Oral mucosae moist, dentition adequate, no lesions noted. NECK: No JVD, lymphadenopathy, thyromegaly, bruits. Carotid pulses are 2+ bilaterally LUNGS: Clear bilaterally, with no rales, rhonchi or wheezing noted, respirations unlabored HEART: Nondisplaced PMI, regular rate and rhythm, S1, S2 normal. No murmurs, rubs or gallop s noted. ABDOMEN: Soft, nontender, nondistended. No organomegaly, masses or bruits. Bowel sounds are normal in all 4 quadrants. The abdominal aortic pulsation is not palpable. EXTREMITIES: no clubbing, cyanosis or edema. Pulses palpable and equal distally. SKIN: Warm and dry, capillary refill is normal, no lesions. No jaundice. NEUROLOGIC: Awake, alert and oriented x 3. No focal motor deficits. PSYCHIATRIC: Appropriate, affect appears normal [facility] Patient Name: Andres Guzmán Procedure Date: 12/29/2019 8:36 AM Date of : 1930 Note Status: Finalized Attending MD: LAMONT HERNANDEZ MD Procedure Type: Upper GI endoscopy Indications: Melena Referring MD: Kb Allen Md Medicines: Monitored Anesthesia Care Complications: No immediate complications. Procedure: Pre-Anesthesia Assessment: - Prior to the procedure, a History and Physical was performed, and patient medications and allergies were reviewed. The patient is competent. The risks and benefits of the procedure and the sedation options and risks were discussed with the patient. All questions were answered and informed consent was obtained. Patient identification and proposed procedure were verified by the physician, the nurse, the anesthesiologist and the robot technician in the pre-procedure area in the procedure room. Mental Status Examination: alert and oriented. Airway Examination: normal oropharyngeal airway and neck mobility. Respiratory Examination: clear to auscultation. CV Examination: normal. Prophylactic Antibiotics: The patient does not require prophylactic antibiotics. Prior Anticoagulants: The patient has taken Eliquis (apixaban), last dose was 2 days prior to procedure. ASA Grade Assessment: III - A patient with severe systemic disease. After reviewing the risks and benefits, the patient was deemed in satisfactory condition to undergo the procedure. The anesthesia plan was to use monitored anesthesia care (MAC). Immediately prior to administration of medications, the patient was re-assessed for adequacy to receive sedatives. The heart rate, respiratory rate, oxygen saturations, blood pressure, adequacy of pulmonary ventilation, and response to care were monitored throughout the procedure. The physical status of the patient was re-assessed after the procedure. After obtaining informed consent, the endoscope was passed under direct vision. Throughout the procedure, the patient's blood pressure, pulse, and oxygen saturations were monitored continuously. The Endoscope was introduced through the mouth, and advanced to the third part of duodenum. The upper GI endoscopy was accomplished without difficulty. The patient tolerated the procedure well. Estimated Blood Loss: Estimated blood loss: none. Findings: LA Grade C (one or more mucosal breaks continuous between tops of 2 or more mucosal folds, less than 75% circumference) esophagitis with bleeding was found 32 to 36 cm from the incisors. Biopsies were taken with a cold forceps for histology. Verification of patient identification for the specimen was done by the physician and nurse using the patient's name and date. Estimated blood loss was minimal. Mild oozing noted diffusely from esophagitis on contact with endoscope which stops spontanrously after 1-2 minutes. No visible vessel or significant bleeding noted. A small hiatal hernia was present. Diffuse mildly erythematous mucosa without bleeding was found in the entire examined stomach. Biopsies were taken with a cold forceps for histology. Verification of patient identification for the specimen was done by the physician and nurse using the patient's name and date. Estimated blood loss was minimal. No other significant abnormalities were identified in a careful examination of the stomach. The cardia and gastric fundus were normal on retroflexion. One oozing cratered duodenal ulcer with a visible vessel was found in the duodenal bulb. The lesion was 10 mm in largest dimension. Area was successfully injected with 10 mL of a 1:10,000 solution of epinephrine for hemostasis. Estimated blood loss was minimal. Coagulation for hemostasis using bipolar probe was successful. Thermal coagulation with Gold probe 7 Anguillan x 5 pulses was successful with hemostasis. One non-bleeding cratered duodenal ulcer with a clean ulcer base (Usama Class III) was found in the second portion of the duodenum. The lesion was 7 mm in largest dimension. The exam of the duodenum was otherwise normal. Impression: - LA Grade C reflux esophagitis. Rule out Dumont's esophagus. Biopsied. - Small hiatal hernia. - Erythematous mucosa in the stomach. Biopsied. - Oozing duodenal ulcer with a visible vessel. Injected. Treated with bipolar cautery. - Non-bleeding duodenal ulcer with a clean ulcer base (Usama Class III). Recommendation: - Return patient to [facility] for ongoing care. - NPO today. - Continue present medications. - Await pathology results. - Repeat upper endoscopy for surveillance based on pathology results. - Give Protonix (pantoprazole): initiate therapy with 80 mg IV bolus, then 8 mg/hr IV by continuous infusion for 3 days. - No aspirin, ibuprofen, naproxen, or other non-steroidal anti-inflammatory drugs. - Resume Eliquis (apixaban) at prior dose in 7 days. - The findings and recommendations were discussed with the patient. - Check hemoglobin q 6 hours for one day. LAMONT HERNANDEZ MD 12/29/2019 10:19:54 AM This report has been signed electronically. Note Initiated On: 12/29/2019 8:36 AM Number of Addenda: 0 [facility] DATA Lab Results Component Value Date WBC 6.69 12/30/2019 HGB 9.3 (L) 12/30/2019 HCT 28.3 (L) 12/30/2019 MCV 98.3 12/30/2019 PLT 85 (L) 12/30/2019 Lab Results Component Value Date AST 12 07/28/2017 ALT 12 07/28/2017 BILITOT 0.5 07/28/2017 Lab Results Component Value Date INR 1.3 12/29/2019 INR 1.2 12/22/2019 INR 2.9 08/29/2017 PROTIME 31.3 08/29/2017 PROBLEM LIST Principal Problem: Acute GI bleeding Active Problems: Permanent atrial fibrillation Hypertension goal BP (blood pressure) < 140/80 Type 2 diabetes mellitus with kidney complication, without long-term current use of insul in Chronic diastolic heart failure History of stroke Closed comminuted intertrochanteric fracture of right femur with routine healing Acute renal failure superimposed on stage 3 chronic kidney disease Weakness generalized Difficulty in walking Bacterial pneumonia Acute post-hemorrhagic anemia Bleeding duodenal ulcer ASSESSMENT 1. Duodenal ulcer- with visible vessel, treated with epi injection and gold probe cautery. Doing well. 2. Class C esophagitis 3. Acute blood loss anemia- due to above. PLAN 1.. PPI IV infusion x 72 hours total and then transition to PO BID for at least 8 weeks 2. Await pathology results. 3. Diet as tolerated. 4. Resume Eliquis in 1 week. 5. Monitor for further blood loss. Please notify Gi if any ongoing bleeding. Will sign off. Patient was discussed with GI attending.Thank you for allowing me to participate in the car e of this patient. I look forward to following along with you. Please don't hesitate to ca ll with any questions. Florina Cantu PA-C [facility]astroenterology 12/30/2019 Associated attestation - Lamont Hernandez MD - 12/31/2019 2:17 PM [id number] male with GI bleeding due to duodenal ulcer with visible vessel. The ulcer and visible vessel were tr eated with injection and gold probe thermal coagulation. The patient was seen and examined by me personally. The case was discussed with the physician's hearing and speech assistant and I agree with the assessment and p tim as outlined in the note. Continue PPI IV infusion for total of 72 hours and then when patient is discharged he must be on twice daily PPI for 8 weeks. Resume Eliquis in 1 week. Lamont Hernandez MD Gastroenter[place], Marycarmen Haydee, [facility] - 12/30/2019 11:05 AM PDTFormatting of th is note might be different from the original. ORTHOPEDIC SURGERY PROGRESS NOTE Patient Name: Andres Guzmán Patient : 1930 Gender: male Date of admission: 12/21/2019 Post-operative day: 8 Status post Procedure(s) (LRB): EGD (N/A) Assessment and Plan The patient chart and medications were reviewed in detail and the patient was seen and exam ined. No anticipated change in admission status. Disposition: Plan to discharge tomorrow, to [facility], once medically stable and cleared by PT/OT. Pain Acute post-operative pain. Pain is adequately controlled on current pain regimen. Continue current pain medications. Continue to mobilize patient: pre-medicate 30-40 minutes prior to activity. Wound: continue wound care to surgical site per wound RN, consider Provena wound vac on dis charge if still draining. PT/OT: Mobilize with PT/OT: weight bear as tolerated and mobility precautions as ordered DVT/PE prophylaxis: Continue home Eliquis on hold due to GIB per order, SCDs, early mobili zation. Bowel Care: Continue stool softeners and laxatives per order, mobilization, encourage fluid s. Active comorbid conditions include: - dysrhythmias - CHF - hypertension - pacemaker - PVD - endocrine problem - diabetes; type 2; controlled (Hgb A1C < 6.5); without complications - GERD - CVA - anemia - Drugs/Alcohol/Tobacco - tobacco use Special Issues *Acute blood loss anemia due to surgical/ post-surgical blood loss and low baseline H&H pre operatively. Labs on 12/30/2019: Hemoglobin 9.3 g/dL; Hematocrit 28.3 %; Treatment plan: bloo d transfusion, lab follow up and EGD found acitve bleeding duodenal ulcer, treatment per GI *Acute kidney injury: rise in serum creatinine, evidenced by creatinine elevation on 020: Creatinine 3.04 mg/dL. Intake/Output Summary (Last 24 hours) at 12/30/2019 1107 Last data filed at 12/30/2019 0346 Gross per 24 hour Intake 452 ml Output 1025 ml Net -573 ml . Treatment plan: per hospitalist, improved. Subjective No chest pain, no shortness of breath, no abdominal pain, no nausea or vomiting, some dizzi ness upon first standing that resolves. He was able to walk to the door today with PT and st ates he is better today. Objective Exam A&Ox3. Appears comfortable. Surgical dressing continues to have bloody to serosanguinous drainage, moderate amount, ove rall has slowed down. Edema to the area is soft to palpation. Dressings to right elbow and top of the right upper knee CDI. No calf tenderness to compression. Sensation is intact to light touch, motor intact, brisk capillary refill. Vital Signs Vitals: 12/30/19 1058 BP: 141/60 Pulse: 60 Resp: Temp: 36.6 C (97.9 F) Min/Max Temp past 24 hours: Temp Av.8 C (98.2 F) Min: 36.6 C (97.8 F) Max: 37.1 C (98.8 F) Labs Recent Results (from the past 24 hour(s)) POC Glucose Result Value Ref Range Glucose, POC 205 (H) 65 - 99 mg/dL POC Glucose Result Value Ref Range Glucose, POC 191 (H) 65 - 99 mg/dL Hemoglobin and Hematocrit Result Value Ref Range Hemoglobin 9.8 (L) 13.2 - 17.0 g/dL Hematocrit 29.5 (L) 39.0 - 50.0 % POC Glucose Result Value Ref Range Glucose, POC 128 (H) 65 - 99 mg/dL Hemoglobin and Hematocrit Result Value Ref Range Hemoglobin 9.8 (L) 13.2 - 17.0 g/dL Hematocrit 29.6 (L) 39.0 - 50.0 % POC Glucose Result Value Ref Range Glucose, POC 109 (H) 65 - 99 mg/dL CBC with Differential Result Value Ref Range WBC 6.69 3.80 - 11.00 K/uL RBC 2.88 (L) 4.20 - 5.70 M/uL Hemoglobin 9.3 (L) 13.2 - 17.0 g/dL Hematocrit 28.3 (L) 39.0 - 50.0 % MCV 98.3 80.0 - 100.0 fl MCH 32.3 27.0 - 34.0 pg MCHC 32.9 32.0 - 35.5 g/dL RDW-SD 55.7 (H) 37 - 53 fl Platelet Count 85 (L) 150 - 400 K/uL MPV 10.8 fl Diff Type AUTOMATED % nRBC 0.0 0 /100WBC % Neutrophils 72.60 % IMMATURE GRANULOCYTE 0.70 % % Lymphocytes 10.50 % Monocyte % 12.10 % Eosinophils % 3.70 % Basophils % 0.40 % Neutrophils, Absolute 4.85 1.90 - 7.40 K/uL IMMATURE GRANS AB 0.05 0.00 - 0.07 K/uL Absolute Lymphocytes 0.70 (L) 1.00 - 3.90 K/uL Absolute Monocytes 0.81 (H) 0.00 - 0.80 K/uL Eosinophils, Absolute 0.25 0.00 - 0.50 K/uL Basophils, Absolute 0.03 0.00 - 0.10 K/uL POC Glucose Result Value Ref Range Glucose, POC 103 (H) 65 - 99 mg/dL Basic Metabolic Panel Result Value Ref Range Na 141 135 - 145 mmol/L K 4.0 3.5 - 4.9 mmol/L Cl 107 99 - 109 mmol/L CO2 21 (L) 23 - 32 mmol/L Anion Gap 17 5 - 20 mmol/L Glucose 92 65 - 99 mg/dL BUN 70 (H) 8 - 25 mg/dL Creatinine 3.04 (H) 0.70 - 1.30 mg/dL BUN/Creatinine Ratio 23 Calcium 8.6 8.5 - 10.5 mg/dL Estimated GFR 20 (L) >60 mL/min/1.73m2 Patient has been updated on their condition and plan for treatment. Questions have been ans wered to their satisfaction. Further management to be dictated by patient's clinical conditi on, in coordination with multidisciplinary team. This case discussed with Dr. Baez, Dr. Chino, RN and CM. Electronically signed by: ENEDINA Ramos, 12/30/2019 11:05 AM Alexander Riley MD - 12/30/2019 10:4 5 AM PDT [id number] LOS: 9 days To summarize previous records: Andres Guzmán is a 89 y.o. man followed for acute on chronic renal failur e. He has baseline medical/surgical history as below. He was admitted with fall and right leg fracture and is s/p NAILING IM BETSY FEMUR - GAMMA NA IL (Right) on the December with Dr. Baez. I assumed care from Dr. Tapia 12/27/19. 12/28/19 He received 2 units of packed red blood cell transfusion yesterday without any comp lications. 12/29/19 s/p UGIE with Dr. Hernandez today which showed bleeding duodenal ulcer which was caut erized. Today 12/30/19 He is hemodynamically stable with no evidence of fever/tachycardia/bradycard ia/severe hypertension or severe hypotension/hypoxia. He feels OK for the most part. Right leg does not hurt much. UO is good. Lee remains in. He has no abdominal pain/nausea/vomiting and remains on pantoprazole infusion. There are no documented episodes of fever/nausea/vomiting/abdominal pain/shortness of breat h at rest/chest pain/cough. Lab review from today shows stable anemia with Hb of 9.3. Serial Hb have been stable. Acute on chronic renal failure is improving with reduction in BUN. Creatinine has leveled off at 3 Acidosis seems to be stable with persistent elevation of anion gap with slight drop in CO2 to 21. PMH, PSH, Social history reviewed in chart. Allergies and medications reviewed. Previous hi story summarized as above. Prior lab data and imaging reviewed.Patient's old records and lab s were reviewed in detail and summarized. Significant medical/surgical history Stage III chronic kidney disease History of gout Chronic anticoagulation with apixaban for history of chronic atrial fibrillation. History of GI GI bleed in 2017. History of blood transfusion Status post pacemaker placement for which he follows up with Dr. Enoch Thompson. History of stroke in 2006 with residual right-sided weakness Type 2 diabetes mellitus. acetaminophen 1,000 mg Oral 3 times per day albuterol 4 puff Inhalation RT Q6H allopurinol 100 mg Oral Daily ascorbic acid 500 mg Oral Daily budesonide-formoterol 2 puff Inhalation RT BID carvedilol 3.125 mg Oral BID WC ferrous sulfate 325 mg Oral Every Other Day insulin lispro 0-12 Units Subcutaneous TID WC [START ON 12/31/2019] levoFLOXacin 250 mg Oral Every Other Day pravastatin 40 mg Oral Nightly sucralfate 1 g Oral 4x Daily AC and HS terazosin 10 mg Oral Daily with dinner dextrose 10% pantoprazole 8 mg/hr (12/30/19 0926) ROS: Review of systems is as per history of present illness. Otherwise a 14 organ system review of systems was done and is negative. Examination: Vitals as noted. General appearance: Frail elderly man sitting up in chair in no distress. Speech clear.Not short of breath at rest. Conversant Neck: FROM, supple Lungs: Effort fair. AE reduced B/L with scattered rales/wheeze. CV: Occasional PVC, no MRGs; normal carotid upstroke and amplitude without bruits. Telemet ry with paced rhythm. Pacemaker right anterior chest wall. Abdomen: Soft, non-tender; no masses or HSM Extremities: Minimal peripheral edema. No digital cyanosis Skin: no rash, lesions or ulcers Psych: Pleasant demeanor. Neurologic: Alert. No asterixis. Lee with clear urine. Vital Signs: BP 134/63 | Pulse 61 | Temp 36.6 C (97.8 F) (Oral) | Resp 16 | Ht 1.651 m (5' 5") | Wt 63.5 kg (140 lb) | SpO2 99% | BMI 23.30 kg/m Lab Results Component Value Date NA 141 12/30/2019 K 4.0 12/30/2019 CL 107 12/30/2019 CO2 21 (L) 12/30/2019 ANIONGAP 17 12/30/2019 GLU 92 12/30/2019 BUN 70 (H) 12/30/2019 CREA 3.04 (H) 12/30/2019 LABCREA 1.68 (A) 04/01/2019 EGFR 20 (L) 12/30/2019 BUNCREARATIO 23 12/30/2019 PTH 72.57 (A) 04/01/2019 [id number] 25.2 (L) 12/27/2019 CALCIUM 8.6 12/30/2019 PHOS 5.2 (H) 12/26/2019 PHOSPHORUSST 3.5 04/01/2019 ALBUMIN 3.3 12/26/2019 MG 2.2 12/27/2019 AGRATIO 0.8 (L) 07/28/2017 BILITOT 0.5 07/28/2017 ALKPEX 50 07/28/2017 AST 12 07/28/2017 ALT 12 07/28/2017 URICACID 7.4 04/01/2019 WBC 6.69 12/30/2019 HGB 9.3 (L) 12/30/2019 LABPLAT 121 (A) 04/01/2019 LDH 154 12/25/2019 PROTCREATUR 0.942 12/25/2019 Lab Results Component Value Date PHUR 5 01/07/2019 PROTUA Trace 01/07/2019 BLOODU Negative 01/07/2019 LEUKOESTUA Negative 01/07/2019 NITRITEUA NEGATIVE 12/24/2019 LABCOLO Yellow 01/07/2019 GLUCOSEU NEGATIVE 12/24/2019 BILIRUBINUA NEGATIVE 12/24/2019 KETONES Negative 01/07/2019 Lab Results Component Value Date C3 53 (L) 12/26/2019 C4 15 12/26/2019 HCVAB <0.1 12/25/2019 Lab Results Component Value Date HBA1C 5.5 07/26/2017 LABGLYC 111 07/26/2017 Lab Results Component Value Date BNP 506 (H) 07/26/2017 BNP 614 (H) 07/25/2017 EKG from 26 Dec 2019 showed ventricular paced rhythm with frequent PVCs. Echocardiogram from 25 Dec 2019 showed ejection fraction of 55% with severe eccentric tricus pid regurgitation and severe pulmonary artery hypertension. There was also note of mild to moderate mitral regurgitation and mild aortic regurgitation. Renal sonogram from 24 Dec 2019 showed no hydronephrosis. There was noted to be renal corti prashant thinning likely to represent medical renal disease. Bilateral small renal cysts were no colt. Assessment and recommendations: 1. Acute on chronic renal failure 2. Possible acute tubular necrosis from hypotension in the postop setting. 3. Baseline chronic kidney disease stage III with a baseline creatinine of 1.7. 4. Right hip fracture secondary to mechanical fall status post open reduction and internal fixation 5. Acute blood loss anemia/UGI bleed/bleeding duodenal ulcer 6. Thrombocytopenia 7. Possible aspiration pneumonia He has acute on chronic renal failure likely secondary to ATN with hypotension in the posto p setting evidenced by acute blood loss anemia. Baseline creatinine is about 1.7 from 01 April 2019. This is likely from vascular disease with minimal proteinuria on urinalysis from December 2018. He has been following up with [facility] in [place]. That had improved with nonoliguric state but now seems to have leveled off at around 3 and this may be reflection of unrecovered acute kidney injury and a higher baseline creatinine. At this time there is no clinical uremia, refractory volume overload, refractory acidosis, refractory hyperkalemia and no urgent indication of starting EXCAVATOR BACKHOE OPERATOR. Neither is there an indication for diagnostic kidney biopsy. Work-up for acute on chronic renal failure showed normal free light chain ratio from 24 December with elevated levels of kappa free light chains and lambda free light chains. C3 was borderline low with normal C4 in the presence of overall hypoalbuminemia. While the urinalysis on 23 December did show moderate blood there was no evidence of infection an d he had modest proteinuria. I doubt that he has acute vasculitis. This was likely a Lee specimen. He is markedly volume expanded but with preserved effective arterial blood volume with nono liguric state. He is not in heart failure even though the chest x-ray from the December shows bilat eral atelectasis and small effusions bilaterally. I would recommend continuing current medications. Mobilize Incentive spirometry. Transfuse Prn. No indication for EXCAVATOR BACKHOE OPERATOR for now. Await renal recovery. I discussed with him the concept of acute on chronic renal failure and interaction of BP/vo lume status/medications in preserving homeostasis with ESRD. He should be on a 2 gm Na diet. Please dose all medications for an eGFR of less than 10 ml/min/1.73 m2. NSAIDS/MADDEN 2 inhibitors should be avoided. Aluminum/magnesium containing antacids and magnesium/phosphate containing enemas should be avoided. Fluid should be restricted to less than 1.5 L in a 24 hr period. Strict I/O should be done. Plan of care was discussed with Dr. Chino. Alexander Beckford MD 12/30/2019 Portions of my previous notes have been carried over for continuity of chart review/care. He was seen earlier in the day and charting was completed later after rounds. Dictation software, Sticky, was used which may contain error for similar sounding words. Pe rsonal communication is requested for any clarification. Also please do not construe any information/orders from unsigned notes. Recommendations are solely recommendations and not orders (unless explicitly stated so) and primary ordering authority is with primary team. Prognosis is guarded in view of multiple comorbid illnesses and acute on chronic renal fail ure including but not limited to potential need for EXCAVATOR BACKHOE OPERATOR . This is a patient with multiple complex medical problems that required considerable time an d reflection in order to properly evaluate and manage. Optimization of treatment/therapy is the primary goal. Complex analysis and decision making was involved in today's visit and req uired extended time to fully and correctly evaluate this patient's unique problems and desig n a treatment strategy that is best for their specific health problems and circumstances. Alexander Riley MD - 0 12/29/2019 9:01 PM PDT [id number] LOS: 8 days To summarize previous records: Andres Guzmán is a 89 y.o. man followed for acute on chronic renal failure. He has baseline medical/surgical history as below. He was admitted with fall and right leg fracture and is s/p NAILING IM BETSY FEMUR - GAMMA NA [place] (Right) on the 3December [address] Baez. I assumed care from Dr. Tapia 12/27/19. 12/28/19 He received 2 units of packed red blood cell transfusion yesterday without any comp lications. Today 12/29/19 He is hemodynamically stable with no evidence of fever/tachycardia/bradycard ia/severe hypertension or severe hypotension/hypoxia. He feels OK for the most part. He is s/p UGIE with Dr. Hernandez today which showed bleeding duodenal ulcer which was cauteriz ed. Right leg does not hurt much. UO is good. There are no documented episodes of fever/nausea/vomiting/abdominal pain/shortness of breat h at rest/chest pain/cough. He remains non ambulatory. Lab review from today shows stable anemia with Hb of 9. Serial Hb have been stable. Acute on chronic renal failure is improving with reduction in BUN and creatinine. Acidosis seems to be slightly worse with slight rise in anion gap. PMH, PSH, Social history reviewed in chart. Allergies and medications reviewed. Previous hi story summarized as above. Prior lab data and imaging reviewed.Patient's old records and lab s were reviewed in detail and summarized. Significant medical/surgical history Stage III chronic kidney disease History of gout Chronic anticoagulation with apixaban for history of chronic atrial fibrillation. History of GI GI bleed in 2017. History of blood transfusion Status post pacemaker placement for which he follows up with Dr. Enoch Thompson. History of stroke in 2006 with residual right-sided weakness Type 2 diabetes mellitus. ROS: Review of systems is as per history of present illness. Otherwise a 14 organ system review of systems was done and is negative. Examination: Vitals as noted. General appearance: Frail elderly man lying flat in bed in no distress. Speech clear but wi th occasional cough. Not short of breath at rest. Conversant Neck: FROM, supple Lungs: Effort fair. AE reduced B/L with scattered rales/wheeze. CV: Occasional PVC, no MRGs; normal carotid upstroke and amplitude without bruits. [place] r right anterior chest wall. Abdomen: Soft, non-tender; no masses or HSM Extremities: Minimal peripheral edema. No digital cyanosis Skin: no rash, lesions or ulcers Psych: Pleasant demeanor. Neurologic: Alert. No asterixis. Lee with clear urine. Vital Signs: BP 140/63 | Pulse 51 | Temp 37.1 C (98.8 F) (Oral) | Resp 21 | Ht 1.651 m (5' 5") | Wt 63.5 kg (140 lb) | SpO2 98% | BMI 23.30 kg/m Lab Results Component Value Date NA 138 12/29/2019 K 3.7 12/29/2019 CL 103 12/29/2019 CO2 22 (L) 12/29/2019 ANIONGAP 17 12/29/2019 GLU 122 (H) 12/29/2019 BUN 89 (H) 12/29/2019 CREA 3.01 (H) 12/29/2019 LABCREA 1.68 (A) 04/01/2019 EGFR 20 (L) 12/29/2019 BUNCREARATIO 30 12/29/2019 PTH 72.57 (A) 04/01/2019 [id number] 25.2 (L) 12/27/2019 CALCIUM 8.7 12/29/2019 PHOS 5.2 (H) 12/26/2019 PHOSPHORUSST 3.5 04/01/2019 ALBUMIN 3.3 12/26/2019 MG 2.2 12/27/2019 AGRATIO 0.8 (L) 07/28/2017 BILITOT 0.5 07/28/2017 ALKPEX 50 07/28/2017 AST 12 07/28/2017 ALT 12 07/28/2017 URICACID 7.4 04/01/2019 WBC 5.92 12/29/2019 HGB 9.8 (L) 12/29/2019 LABPLAT 121 (A) 04/01/2019 LDH 154 12/25/2019 PROTCREATUR 0.942 12/25/2019 Lab Results Component Value Date PHUR 5 01/07/2019 PROTUA Trace 01/07/2019 BLOODU Negative 01/07/2019 LEUKOESTUA Negative 01/07/2019 NITRITEUA NEGATIVE 12/24/2019 LABCOLO Yellow 01/07/2019 GLUCOSEU NEGATIVE 12/24/2019 BILIRUBINUA NEGATIVE 12/24/2019 KETONES Negative 01/07/2019 Lab Results Component Value Date C3 53 (L) 12/26/2019 C4 15 12/26/2019 HCVAB <0.1 12/25/2019 Lab Results Component Value Date HBA1C 5.5 07/26/2017 LABGLYC 111 07/26/2017 Lab Results Component Value Date BNP 506 (H) 07/26/2017 BNP 614 (H) 07/25/2017 EKG from 26 Dec 2019 showed ventricular paced rhythm with frequent PVCs. Echocardiogram from 25 Dec 2019 showed ejection fraction of 55% with severe eccentric tricus pid regurgitation and severe pulmonary artery hypertension. There was also note of mild to moderate mitral regurgitation and mild aortic regurgitation. Renal sonogram from 24 Dec 2019 showed no hydronephrosis. There was noted to be renal corti prashant thinning likely to represent medical renal disease. Bilateral small renal cysts were no colt. Assessment and recommendations: 1. Acute on chronic renal failure 2. Possible acute tubular necrosis from hypotension in the postop setting. 3. Baseline chronic kidney disease stage III with a baseline creatinine of 1.7. 4. Right hip fracture secondary to mechanical fall status post open reduction and internal fixation 5. Acute blood loss anemia/UGI bleed/bleeding duodenal ulcer 6. Thrombocytopenia 7. Possible aspiration pneumonia He has acute on chronic renal failure likely secondary to ATN with hypotension in the posto p setting evidenced by acute blood loss anemia. Baseline creatinine is about 1.7 from 01 April 2019. This is likely from vascular disease with minimal proteinuria on urinalysis from December 2018. He has been following up with [facility] in [place]. That seems to be improving with nonoliguric state and small reduction in creatinine. At this time there is no clinical uremia, refractory volume overload, refractory acidosis, refractory hyperkalemia and no urgent indication of starting EXCAVATOR BACKHOE OPERATOR. Neither is there an indication for diagnostic kidney biopsy. Work-up for acute on chronic renal failure showed normal free light chain ratio from 24 December with elevated levels of kappa free light chains and lambda free light chains. C3 was borderline low with normal C4 in the presence of overall hypoalbuminemia. While the urinalysis on 23 December did show moderate blood there was no evidence of infection an d he had modest proteinuria. I doubt that he has acute vasculitis. This was likely a Lee specimen. He is markedly volume expanded but with preserved effective arterial blood volume with nono liguric state. He is not in heart failure even though the chest x-ray from the December shows bilat eral atelectasis and small effusions bilaterally. I would recommend continuing current medications. Mobilize Incentive spirometry. Transfuse Prn. No indication for EXCAVATOR BACKHOE OPERATOR for now. Await renal recovery. I discussed with him the concept of acute on chronic renal failure and interaction of BP/vo lume status/medications in preserving homeostasis with ESRD. He should be on a 2 gm Na diet. Please dose all medications for an eGFR of less than 10 ml/min/1.73 m2. NSAIDS/MADDEN 2 inhibitors should be avoided. Aluminum/magnesium containing antacids and magnesium/phosphate containing enemas should be avoided. Fluid should be restricted to less than 1.5 L in a 24 hr period. Strict I/O should be done. Plan of care was discussed with Dr. Chino. Alexander Beckford MD 12/29/2019 Portions of my previous notes have been carried over for continuity of chart review/care. He was seen earlier in the day and charting was completed later after rounds. Dictation software, Sticky, was used which may contain error for similar sounding words. Pe rsonal communication is requested for any clarification. Also please do not construe any information/orders from unsigned notes. Recommendations are solely recommendations and not orders (unless explicitly stated so) and primary ordering authority is with primary team. Prognosis is guarded in view of multiple comorbid illnesses and acute on chronic renal fail ure including but not limited to potential need for EXCAVATOR BACKHOE OPERATOR . acetaminophen 1,000 mg Oral 3 times per day albuterol 4 puff Inhalation RT Q6H allopurinol 100 mg Oral Daily ascorbic acid 500 mg Oral Daily budesonide-formoterol 2 puff Inhalation RT BID carvedilol 3.125 mg Oral BID WC ferrous sulfate 325 mg Oral Every Other Day insulin lispro 0-12 Units Subcutaneous TID WC [START ON 12/31/2019] levoFLOXacin 250 mg Oral Every Other Day levoFLOXacin 500 mg Oral Once pravastatin 40 mg Oral Nightly sucralfate 1 g Oral 4x Daily AC and HS terazosin 10 mg Oral Daily with dinner dextrose 10% pantoprazole 8 mg/hr (12/29/19 1151) ashmi, Jerry Malik MD - 12/29/2019 8:52 AM PDT Service: Hospitalist Daily Progress Note Andres Guzmán 89 y.o. : 1930 SEX: male PCP: Barbara Gilman MD Hospital Day: LOS: 8 SUBJECTIVE Patient Summary: Patient is an 89-year-old male with past medical history of HTN, DM Type 2, CKD Stage III w ith baseline creatinine 1.7 who was admitted as a transfer from [facility] due t o a mechanical fall sustaining right hip fracture. Orthopedic services involved and Dr. Pinon on performed ORIF without any complications. Postoperatively patient had episodes of hypoten jose a to worsening kidney functions and a rise in creatinine up to4.4 with EGFR of 13. His H &H also dropped requiring 2 units of PRBC transfusions but despite this and IV fluids for hy dration his kidney functions did not improve. Nephrology services consulted and Dr. Willie garcia, renal ultrasound done which was negative for hydronephrosis but showed renal cortic al thinning to likely resent medical renal disease. Hospital stay was complicated by episod es of lethargy and confusion. He developed cough symptoms and CO VID 19 was tested which wa s negative. Chest x-ray showed mild bilateral interstitial opacities consistent with either pulmonary edema or atypical pneumonia. He was started IV Zosyn for possible healthcare asso ciated pneumonia. Due to pneumonia and deteriorating renal functions his discharge was linh aliciafrancesca. PT/OT services recommended IPR but Dr. Reed did not have beds and recommended SNF for rehabilitation. Case management worked in finding placement and he was accepted by [facility] in [place], [place] for rehabilitation purposes. Hospita l stay was also complicated by episodes of melena, drop in H&H possibly GI bleeding. He was given another 2 units of PRBC transfusions which helped and H&H improved to 9.9. GI service s consulted and Dr. Hernandez performed an EGD. The findings showed reflux esophagitis, erythem atous mucosa in the stomach, oozing duodenal ulcer with visible vein which was treated with bipolar cautery. There was also a non-bleeding duodenal ulcer with clean base. Events Overnight: Patient seen and examined. Overnight events noted. Patient was seen awake but tired and let hargic after the procedure. Still under the effect of sedation but hemodynamically stable. H as nausea and mild vomiting, denied any abdominal pain but had some discomfort. No worsening cough or shortness of breath, also denied nausea, vomiting, diarrhea or constipation. Appet ite is low but kept NPO for today. Remained afebrile. Scheduled Medications acetaminophen, 1,000 mg, Oral, 3 times per day albuterol, 4 puff, Inhalation, RT Q6H allopurinol, 100 mg, Oral, Daily aluminum & magnesium hydroxide-simethicone, 30 mL, Oral, Q4H PRN ascorbic acid, 500 mg, Oral, Daily budesonide-formoterol, 2 puff, Inhalation, RT BID carvedilol, 3.125 mg, Oral, BID WC dextrose, 12.5-25 g, Intravenous, PRN And dextrose 10%, , Intravenous, Continuous PRN docusate sodium, 100 mg, Oral, BID PRN ferrous sulfate, 325 mg, Oral, Every Other Day HYDROmorphone, 1 mg, Intravenous, Q8H PRN insulin lispro, 0-12 Units, Subcutaneous, TID WC meclizine, 25 mg, Oral, Q8H PRN ondansetron, 4 mg, Oral, Q6H PRN ondansetron, 4 mg, Intravenous, Q6H PRN pantoprazole, 8 mg/hr, Intravenous, Continuous piperacillin-tazobactam (ZOSYN) IVPB (custom doses), 3.375 g, Intravenous, Q12H pravastatin, 40 mg, Oral, Nightly senna, 8.6 mg, Oral, BID PRN terazosin, 10 mg, Oral, Daily with dinner Continuous Infusions . PRN Medications Current Facilty-Administered PRN Medications Ordered in Epic Medication Dose Route Frequency Provider Last Rate Last Dose aluminum & magnesium hydroxide-simethicone (MAALOX PLUS REGULAR STRENGTH) 200-200-20 mg /5 mL suspension 30 mL 30 mL Oral Q4H PRN Jerry Chino MD dextrose 50% injection 12.5-25 g 12.5-25 g Intravenous PRN Anders Soto PA-C 25 g at 12/22/19 0843 And dextrose 10% (D10W) infusion Intravenous Continuous PRN Anders Soto PA-C docusate sodium (COLACE) capsule 100 mg 100 mg Oral BID PRN Anders Soto PA-C HYDROmorphone (DILAUDID) injection 1 mg 1 mg Intravenous Q8H PRN Jerry Chino MD 0.5 mg at 12/26/19 1659 meclizine (ANTIVERT) tablet 25 mg 25 mg Oral Q8H PRN Regino Greene MD 25 mg at 12/08 1011 ondansetron (ZOFRAN ODT) disintegrating tablet 4 mg 4 mg Oral Q6H PRN Anders Soto PA-C ondansetron (ZOFRAN) injection 4 mg 4 mg Intravenous Q6H PRN Anders Soto PA-C 4 mg at 12/28/19 0451 senna (SENOKOT) tablet 8.6 mg 8.6 mg Oral BID PRN Anders Soto PA-C Allergy: Allergies Allergen Reactions Codeine Nausea And Vomiting and Vertigo Morphine And Related Nausea Only Nausea, Slow to recover OBJECTIVE Vital Signs: Vitals: 12/29/19 0713 BP: 133/71 Pulse: 62 Resp: 16 Temp: 36.6 C (97.8 F) Intake/Output Summary (Last 24 hours) at 12/29/2019 0852 Last data filed at 12/29/2019 0608 Gross per 24 hour Intake 761 ml Output 1400 ml Net -639 ml Examination: Constitutional: Patient was tired and lethargic but responded to questions appropriately. A ppears weak but not in acute distress. HEENT: Head: Normocephalic and Atraumatic. Nose: Nose normal. Mouth/Throat: Oropharynx is clear and moist. Eyes: No conjunctiva injection. EOM Intact. PERRLA. No scleral icterus. Neck: Neck supple. No JVD present. No tracheal deviation present. No thyromegaly Cardiovascular: Atrial Fibrillation, no murmur heard and no friction rub. Pulmonary/Chest: + Few rales at bases and mid zones with few rhonchi's. Abdominal: Soft, BS present, no distension, no ascites. No rebound tenderness and no guardi ng. Musculoskeletal: Moves all limbs, limited ROM RLE, + Dressing in place at right hip incisio n site. + Weakness and difficulty in walking. No pedal edema. Neurological: No Focal neurologic deficits, + Weakness and Difficulty in walking due to fa ll and hip fracture. No CN deficits. Skin: Skin is warm and dry. No ecchymoses, or abrasions. Psychiatric: No Confusion, No agitation, Restricted affect and Judgement is fair. LABS: Recent Results (from the past 24 hour(s)) POC Glucose Result Value Ref Range Glucose, POC 163 (H) 65 - 99 mg/dL Hemoglobin and Hematocrit Result Value Ref Range Hemoglobin 9.9 (L) 13.2 - 17.0 g/dL Hematocrit 28.8 (L) 39.0 - 50.0 % POC Glucose Result Value Ref Range Glucose, POC 124 (H) 65 - 99 mg/dL Fecal Hemoglobin Result Value Ref Range FECAL OCCULT BLD POSITIVE (A) NEG POC Glucose Result Value Ref Range Glucose, POC 216 (H) 65 - 99 mg/dL Hemoglobin and Hematocrit Result Value Ref Range Hemoglobin 9.1 (L) 13.2 - 17.0 g/dL Hematocrit 26.6 (L) 39.0 - 50.0 % POC Glucose Result Value Ref Range Glucose, POC 192 (H) 65 - 99 mg/dL CBC with Differential Result Value Ref Range WBC 5.92 3.80 - 11.00 K/uL RBC 2.84 (L) 4.20 - 5.70 M/uL Hemoglobin 9.0 (L) 13.2 - 17.0 g/dL Hematocrit 27.0 (L) 39.0 - 50.0 % MCV 95.1 80.0 - 100.0 fl MCH 31.7 27.0 - 34.0 pg MCHC 33.3 32.0 - 35.5 g/dL RDW-SD 54.3 (H) 37 - 53 fl Platelet Count 91 (L) 150 - 400 K/uL MPV 11.2 fl Diff Type AUTOMATED % nRBC 0.3 (H) 0 /100WBC % Neutrophils 68.50 % IMMATURE GRANULOCYTE 0.70 % % Lymphocytes 11.50 % Monocyte % 14.90 % Eosinophils % 4.10 % Basophils % 0.30 % Neutrophils, Absolute 4.06 1.90 - 7.40 K/uL IMMATURE GRANS AB 0.04 0.00 - 0.07 K/uL Absolute Lymphocytes 0.68 (L) 1.00 - 3.90 K/uL Absolute Monocytes 0.88 (H) 0.00 - 0.80 K/uL Eosinophils, Absolute 0.24 0.00 - 0.50 K/uL Basophils, Absolute 0.02 0.00 - 0.10 K/uL Basic Metabolic Panel Result Value Ref Range Na 138 135 - 145 mmol/L K 3.7 3.5 - 4.9 mmol/L Cl 103 99 - 109 mmol/L CO2 22 (L) 23 - 32 mmol/L Anion Gap 17 5 - 20 mmol/L Glucose 122 (H) 65 - 99 mg/dL BUN 89 (H) 8 - 25 mg/dL Creatinine 3.01 (H) 0.70 - 1.30 mg/dL BUN/Creatinine Ratio 30 Calcium 8.7 8.5 - 10.5 mg/dL Estimated GFR 20 (L) >60 mL/min/1.73m2 Protime INR Result Value Ref Range INR 1.3 POC Glucose Result Value Ref Range Glucose, POC 146 (H) 65 - 99 mg/dL Hemoglobin and Hematocrit Result Value Ref Range Hemoglobin 9.2 (L) 13.2 - 17.0 g/dL Hematocrit 27.2 (L) 39.0 - 50.0 % PROBLEM LIST Principal Problem: Acute GI bleeding Active Problems: Closed comminuted intertrochanteric fracture of right femur with routine healing Acute renal failure superimposed on stage 3 chronic kidney disease Bacterial pneumonia Acute post-hemorrhagic anemia ATN (acute tubular necrosis) Permanent atrial fibrillation Hypertension goal BP (blood pressure) < 140/80 Type 2 diabetes mellitus with kidney complication, without long-term current use of insul in Chronic diastolic heart failure History of stroke Weakness generalized Difficulty in walking ASSESSMENT & PLAN Acute GI Bleeding: Secondary to bleeding duodenal ulcer, S/P EGD which showed erythematou s mucosa in the stomach, oozing duodenal ulcer with visible vein and a non-bleeding duodenal ulcer with clean base. Will continue IV Protonix drip for another 24 hours, add Carafate 1 g every 6 hours, follow H&H and transfuse PRBCs as needed. Acute Post Hemorrhagic Anemia: H&H is at 9.1 this AM after 2 additional units of PRBC trans fusions. Secondary to bleeding duodenal ulcer, S/P EGD by Dr. Hernandez from GI services and er ythematous mucosa in the stomach, oozing duodenal ulcer with visible vein which was treated with bipolar cautery and a non-bleeding duodenal ulcer with clean base. Will hold Eliquis fo r a week, continue Protonix drip, add Carafate every 6 hours and monitor H&H periodically. Bleeding Duodenal Ulcer: S/P EGD and found to have erythematous mucosa in the stomach, oozi ng duodenal ulcer with visible vein which was treated with bipolar cautery and another non-b leeding duodenal ulcer with clean base was found mentioned above. We will continue Protonix drip another 24 hours, monitor H&H and transfuse PRBCs if needed. He will be of Eliquis fo r 7 days due to risks of bleeding. Closed Rght Femur Hip Fracture: Secondary to a fall, Orthopedic is on board and Dr. Baez performed ORIF without any complications Clinically stable but needs rehabilitation, he is accepted by [facility] in [place], [place] with discharge plans early next weeks if remains stable. Will continue PT/OT, wound care and monitor progress. Acute Kidney Injury on Chronic Kidney Disease Stage 3: Likely due to ATN precipitated by d ehydration and blood loss, creatinine is down to 3.0 range today and continues to improve. N ephrology service on board and Dr. Beckford following, appreciate his help & monitor BMP. Bacterial Pneumonia: Likely healthcare associated, COVID-19 test was negative. Stable and i mproving, will transition to oral Levaquin 250 mg every 48 hours, continue Symbicort and Alb uterol Inhalers for symptomatic relief and monitor. Permanent Atrial Fibrillation: S/P Pacemaker placement in the past, currently stable and ra te controlled. Will continue Coreg BID but hold Eliquis for 7 days as per GI recommendations due to risks of bleeding and monitor hemodynamics. Diabetes Mellitus Type 2 with Renal Manifestations: Blood sugar remain stable, he remains o ff Metformin due elevated creatinine. Will continue Accu-Cheks and give Humalog insulin per sliding scale and monitor. Chronic Diastolic Congestive Heart Failure: Stable and not in acute exacerbation, will cont inue Coreg at 3.125 mg BID but hold Lasix till hydration status is improved. History of Stroke: Stable, has difficulty in walking due to hip fracture and deconditioning but otherwise hemodynamically stable. Will hold Eliquis for 7 days due to risks of bleedin g but continue Lipitor as scheduled and monitor. Generalized Weakness / Difficulty in Walking: Altered factorial, secondary to fall, hip fra cture and deconditioning. PT/OT services following, he will need SNF placement at discharge . DVT prophylaxis with SCD's only due to risks of bleeding. Discharge plans in another 1 to 2 to SNF in [place], [place] if remains stable and improve d. Called his daughter Ms. Huerta and updated her about plans at phone number [phone]. Jerry Chino MD 12/29/2019 Norma Sarabia RN - 12/29/2019 6:02 AM PDTPatient has been NPO since midnight. Scheduled Tylenol has been given for pain. Non-adherent dressing on right hip in place; serosanguinous drainage noted. Dressing on right forearm intact. Foam dressing placed on sacrum; patient turned every 2 ho urs. Heels have been floated. Protonix gtt running per order. The call light is within reach; bed is in lowest and locked position. End of shift review complete. Norma Dickey RN 12/29/19 6:18 AM Alexander Riley MD - 0 12/28/2019 4:46 PM PDT [id number] LOS: 7 days Andres Guzmán is a 89 y.o. man followed for acute on chronic renal failure. I assumed care from Dr. Tapia 12/27/19. He is hemodynamically stable with no evidence of fever/tachycardia/bradycardia/severe hyper tension or severe hypotension/hypoxia. He feels OK for the most part. He received 2 units of packed red blood cell transfusion ye sterday without any complications. Right leg does not hurt much. UO is good. There are no documented episodes of fever/nausea/vomiting/abdominal pain/shortness of breat h at rest/chest pain/cough. He remains non ambulatory. Lab review from today shows appropriate rise in hemoglobin up to 9.9. Acute on chronic renal failure is improving with small reduction in BUN and creatinine. Ac idosis seems to be slightly worse with slight rise in anion gap and drop in CO2. PMH, PSH, Social history reviewed in chart. Allergies and medications reviewed. Previous hi story summarized as above. Prior lab data and imaging reviewed.Patient's old records and lab s were reviewed in detail and summarized. Significant medical/surgical history Stage III chronic kidney disease History of gout Chronic anticoagulation with apixaban for history of chronic atrial fibrillation. History of GI GI bleed in 2017. History of blood transfusion Status post pacemaker placement for which he follows up with Dr. Enoch Thompson. History of stroke in 2006 with residual right-sided weakness Type 2 diabetes mellitus. ROS: Review of systems is as per history of present illness. Otherwise a 14 organ system review of systems was done and is negative. Examination: Vitals as noted. General appearance: Frail elderly man lying flat in bed in no distress. Speech clear but wi th occasional cough. Not short of breath at rest. Conversant Neck: FROM, supple Lungs: Effort fair. AE reduced B/L with scattered rales/wheeze. CV: Occasional PVC, no MRGs; normal carotid upstroke and amplitude without bruits. [place] r right anterior chest wall. Abdomen: Soft, non-tender; no masses or HSM Extremities: Minimal peripheral edema. No digital cyanosis Skin: no rash, lesions or ulcers Psych: Pleasant demeanor. Neurologic: Alert. No asterixis. Lee with clear urine. Vital Signs: BP 142/65 | Pulse 59 | Temp 37 C (98.6 F) (Oral) | Resp 16 | Ht 1.651 m (5' 5") | Wt 63.5 kg (140 lb) | SpO2 98% | BMI 23.30 kg/m Lab Results Component Value Date NA 138 12/28/2019 K 3.9 12/28/2019 CL 104 12/28/2019 CO2 22 (L) 12/28/2019 ANIONGAP 16 12/28/2019 GLU 124 (H) 12/28/2019 BUN 102 (H) 12/28/2019 CREA 3.7 (H) 12/28/2019 LABCREA 1.68 (A) 04/01/2019 EGFR 16 (L) 12/28/2019 BUNCREARATIO 28 12/28/2019 PTH 72.57 (A) 04/01/2019 [id number] 25.2 (L) 12/27/2019 CALCIUM 8.5 12/28/2019 PHOS 5.2 (H) 12/26/2019 PHOSPHORUSST 3.5 04/01/2019 ALBUMIN 3.3 12/26/2019 MG 2.2 12/27/2019 AGRATIO 0.8 (L) 07/28/2017 BILITOT 0.5 07/28/2017 ALKPEX 50 07/28/2017 AST 12 07/28/2017 ALT 12 07/28/2017 URICACID 7.4 04/01/2019 WBC 6.22 12/28/2019 HGB 9.9 (L) 12/28/2019 LABPLAT 121 (A) 04/01/2019 LDH 154 12/25/2019 PROTCREATUR 0.942 12/25/2019 Lab Results Component Value Date PHUR 5 01/07/2019 PROTUA Trace 01/07/2019 BLOODU Negative 01/07/2019 LEUKOESTUA Negative 01/07/2019 NITRITEUA NEGATIVE 12/24/2019 LABCOLO Yellow 01/07/2019 GLUCOSEU NEGATIVE 12/24/2019 BILIRUBINUA NEGATIVE 12/24/2019 KETONES Negative 01/07/2019 Lab Results Component Value Date C3 53 (L) 12/26/2019 C4 15 12/26/2019 HCVAB <0.1 12/25/2019 Lab Results Component Value Date HBA1C 5.5 07/26/2017 LABGLYC 111 07/26/2017 Lab Results Component Value Date BNP 506 (H) 07/26/2017 BNP 614 (H) 07/25/2017 EKG from 26 Dec 2019 showed ventricular paced rhythm with frequent PVCs. Echocardiogram from 25 Dec 2019 showed ejection fraction of 55% with severe eccentric tricus pid regurgitation and severe pulmonary artery hypertension. There was also note of mild to moderate mitral regurgitation and mild aortic regurgitation. Renal sonogram from 24 Dec 2019 showed no hydronephrosis. There was noted to be renal corti prashant thinning likely to represent medical renal disease. Bilateral small renal cysts were no colt. Assessment and recommendations: 1. Acute on chronic renal failure 2. Possible acute tubular necrosis from hypotension in the postop setting. 3. Baseline chronic kidney disease stage III with a baseline creatinine of 1.7. 4. Right hip fracture secondary to mechanical fall status post open reduction and internal fixation 5. Acute blood loss anemia 6. Thrombocytopenia 7. Possible aspiration pneumonia He has acute on chronic renal failure likely secondary to ATN with hypotension in the posto p setting evidenced by acute blood loss anemia. Baseline creatinine is about 1.7 from 01 April 2019. This is likely from vascular disease with minimal proteinuria on urinalysis from December 2018. He has been following up with [facility] in [place]. That seems to be improving with nonoliguric state and small reduction in creatinine. At this time there is no clinical uremia, refractory volume overload, refractory acidosis, refractory hyperkalemia and no urgent indication of starting EXCAVATOR BACKHOE OPERATOR. Neither is there an indication for diagnostic kidney biopsy. Work-up for acute on chronic renal failure showed normal free light chain ratio from 24 December with elevated levels of kappa free light chains and lambda free light chains. C3 was borderline low with normal C4 in the presence of overall hypoalbuminemia. While the urinalysis on 23 December did show moderate blood there was no evidence of infection an d he had modest proteinuria. I doubt that he has acute vasculitis. This was likely a Lee specimen. He is markedly volume expanded but with preserved effective arterial blood volume with nono liguric state. He is not in heart failure even though the chest x-ray from the December shows bilat eral atelectasis and small effusions bilaterally. I would recommend continuing current medications. Mobilize Incentive spirometry. Transfuse Prn. No indication for EXCAVATOR BACKHOE OPERATOR for now. Await renal recovery. I discussed with him the concept of acute on chronic renal failure and interaction of BP/vo lume status/medications in preserving homeostasis with ESRD. He should be on a 2 gm Na diet. Please dose all medications for an eGFR of less than 10 ml/min/1.73 m2. NSAIDS/MADDEN 2 inhibitors should be avoided. Aluminum/magnesium containing antacids and magnesium/phosphate containing enemas should be avoided. Fluid should be restricted to less than 1.5 L in a 24 hr period. Strict I/O should be done. Plan of care was discussed with Dr. Chino. Alexander Beckford MD 12/28/2019 He was seen earlier in the day and charting was completed later after rounds. Dictation software, Sticky, was used which may contain error for similar sounding words. Pe rsonal communication is requested for any clarification. Also please do not construe any information/orders from unsigned notes. Recommendations are solely recommendations and not orders (unless explicitly stated so) and primary ordering authority is with primary team. Prognosis is guarded in view of multiple comorbid illnesses and acute on chronic renal fail ure including but not limited to potential need for EXCAVATOR BACKHOE OPERATOR . acetaminophen 1,000 mg Oral 3 times per day albuterol 4 puff Inhalation RT Q6H allopurinol 100 mg Oral Daily ascorbic acid 500 mg Oral Daily budesonide-formoterol 2 puff Inhalation RT BID carvedilol 3.125 mg Oral BID WC ferrous sulfate 325 mg Oral Every Other Day insulin lispro 0-12 Units Subcutaneous TID WC pantoprazole 80 mg Intravenous Once piperacillin-tazobactam (ZOSYN) IVPB (custom doses) 3.375 g Intravenous Q12H pravastatin 40 mg Oral Nightly terazosin 10 mg Oral Daily with dinner dextrose 10% pantoprazole 8 mg/hr (12/28/19 3442) orter, DALILA Grant - 12/28/2019 10:49 AM PDT [facility] Service: Orthopedic Surgery Progress Note Hospital Day: LOS:Hospital Day: 8 Post-Op Day: 6 Days Post-Op status post procedure below Procedure: Procedure(s) (LRB): NAILING IM BETSY FEMUR - GAMMA NAIL (Right) SUBJECTIVE Patient alert in bed. He has been having wound/skin issues/blistering due to dressing adhes samuel. Increase of seeping with anticoag. Nurse had asked that I check the wound. OBJECTIVE Vital Signs: Vitals: 12/28/19 0705 BP: 144/64 Pulse: 63 Resp: 18 Temp: 37 C (98.6 F) Exam: RLE - Wound is seeping with skin irritation - Compartments soft - Flexion of toes and ankle - Sensation intact to light touch - Palpable dorsalis pedis pulse DATA Lab Results Component Value Date WBC 6.22 12/28/2019 HGB 9.9 (L) 12/28/2019 HCT 29.5 (L) 12/28/2019 MCV 93.9 12/28/2019 PLT 92 (L) 12/28/2019 Lab Results Component Value Date NA 138 12/28/2019 K 3.9 12/28/2019 CL 104 12/28/2019 CO2 22 (L) 12/28/2019 Lab Results Component Value Date INR 1.2 12/22/2019 INR 2.9 08/29/2017 INR 2.8 07/29/2017 PROTIME 31.3 08/29/2017 No results found for: CRP Lab Results Component Value Date ESR 6 12/25/2019 ASSESSMENT & PLAN s/p NAILING IM BETSY FEMUR - GAMMA NAIL (Right) - Cont wound management with compression and current dressing DALILA Peralta 12/28/2019 10:49 AM DALILA Peralta has created this entry using [employer] and [employer] macros. The entry has been reviewed and there may still exist sound alike word errors. Jerry Alcantar MD - 12/28/2019 8:56 AM PDTFormatting of this note might be different from the origi nal. Service: Hospitalist Daily Progress Note Andres Guzmán 89 y.o. : 1930 SEX: male PCP: Barbara Gilman MD Hospital Day: LOS: 7 SUBJECTIVE Patient Summary: Patient is an 89-year-old male with past medical history of HTN, DM Type 2, CKD Stage III w ith baseline creatinine 1.7 who was admitted as a transfer from [facility] due t o a mechanical fall sustaining right hip fracture. Orthopedic services involved and Dr. Pinon on performed ORIF without any complications. Postoperatively patient had episodes of hypoten jose a to worsening kidney functions and a rise in creatinine up to4.4 with EGFR of 13. His H &H also dropped requiring 2 units of PRBC transfusions but despite this and IV fluids for hy dration his kidney functions did not improve. Nephrology services consulted and Dr. Willie garcia, renal ultrasound done which was negative for hydronephrosis but showed renal cortic al thinning to likely resent medical renal disease. Hospital stay was complicated by episod es of lethargy and confusion. He developed cough symptoms and CO VID 19 was tested which wa s negative. Chest x-ray showed mild bilateral interstitial opacities consistent with either pulmonary edema or atypical pneumonia. He was started IV Zosyn for possible healthcare asso ciated pneumonia. Due to pneumonia and deteriorating renal functions his discharge was linh yed. PT/OT services recommended IPR but Dr. Reed did not have beds and recommended SNF for rehabilitation. Case management worked in finding placement and he was accepted by [facility] in [place], [place] for rehabilitation purposes. Hospita l stay was also complicated by episodes of melena, drop in H&H possibly GI bleeding. He was given another 2 units of PRBC transfusions which helped and H&H improved to 9.9. GI service s consulted and Dr. Hernandez will evaluate and plan for EGD. Events Overnight: Patient seen and examined. Overnight events noted. Patient was seen awake and alert. Patie nt reported feeling fair, still has pain at the right hip area and dressing is changed perio dically by wound care team. His left all right last night, staff reported one BM this morni ng which was dark but not tarry. Patient denied any worsening cough or shortness of breath. He still has heartburn symptoms, denied headaches, nausea, vomiting, abdominal pain, diarr hea or constipation. Appetite is slowly improving. Remained afebrile. Scheduled Medications acetaminophen, 1,000 mg, Oral, 3 times per day albuterol, 4 puff, Inhalation, RT Q6H allopurinol, 100 mg, Oral, Daily aluminum & magnesium hydroxide-simethicone, 30 mL, Oral, Q4H PRN ascorbic acid, 500 mg, Oral, Daily budesonide-formoterol, 2 puff, Inhalation, RT BID dextrose, 12.5-25 g, Intravenous, PRN And dextrose 10%, , Intravenous, Continuous PRN docusate sodium, 100 mg, Oral, BID PRN ferrous sulfate, 325 mg, Oral, Every Other Day HYDROmorphone, 1 mg, Intravenous, Q8H PRN insulin lispro, 0-12 Units, Subcutaneous, TID WC meclizine, 25 mg, Oral, Q8H PRN ondansetron, 4 mg, Oral, Q6H PRN ondansetron, 4 mg, Intravenous, Q6H PRN pantoprazole, 80 mg, Intravenous, Once Followed by pantoprazole, 8 mg/hr, Intravenous, Continuous piperacillin-tazobactam (ZOSYN) IVPB (custom doses), 3.375 g, Intravenous, Q12H pravastatin, 40 mg, Oral, Nightly senna, 8.6 mg, Oral, BID PRN terazosin, 10 mg, Oral, Daily with dinner Continuous Infusions . PRN Medications Current Facilty-Administered PRN Medications Ordered in Epic Medication Dose Route Frequency Provider Last Rate Last Dose aluminum & magnesium hydroxide-simethicone (MAALOX PLUS REGULAR STRENGTH) 200-200-20 mg /5 mL suspension 30 mL 30 mL Oral Q4H PRN Jerry Chino MD dextrose 50% injection 12.5-25 g 12.5-25 g Intravenous PRN Anders Soto PA-C 25 g at 12/22/19 0843 And dextrose 10% (D10W) infusion Intravenous Continuous PRN Anders Soto PA-C docusate sodium (COLACE) capsule 100 mg 100 mg Oral BID PRN Anders Soto PA-C HYDROmorphone (DILAUDID) injection 1 mg 1 mg Intravenous Q8H PRN Jerry Chino MD 0.5 mg at 12/26/19 1659 meclizine (ANTIVERT) tablet 25 mg 25 mg Oral Q8H PRN Regino Greene MD 25 mg at 12/08 1011 ondansetron (ZOFRAN ODT) disintegrating tablet 4 mg 4 mg Oral Q6H PRN Anders Soto PA-C ondansetron (ZOFRAN) injection 4 mg 4 mg Intravenous Q6H PRN Anders Soto PA-C 4 mg at 12/28/19 0451 senna (SENOKOT) tablet 8.6 mg 8.6 mg Oral BID PRN Anders Soto PA-C Allergy: Allergies Allergen Reactions Codeine Nausea And Vomiting and Vertigo Morphine And Related Nausea Only Nausea, Slow to recover OBJECTIVE Vital Signs: Vitals: 12/28/19 1115 BP: 142/65 Pulse: 57 Resp: 18 Temp: 36.4 C (97.5 F) Intake/Output Summary (Last 24 hours) at 12/28/2019 1448 Last data filed at 12/28/2019 0422 Gross per 24 hour Intake 1020 ml Output 1200 ml Net -180 ml Examination: Constitutional: Patient is alert and oriented x 3. Appears tired and weak but not in acute distress. HEENT: Head: Normocephalic and Atraumatic. Nose: Nose normal. Mouth/Throat: Oropharynx is clear and moist. Eyes: No conjunctiva injection. EOM Intact. PERRLA. No scleral icterus. Neck: Neck supple. No JVD present. No tracheal deviation present. No thyromegaly Cardiovascular: Atrial Fibrillation, no murmur heard and no friction rub. Pulmonary/Chest: + Few rales at bases and mid zones with few rhonchi's. Abdominal: Soft, BS present, no distension, no ascites. No rebound tenderness and no guardi ng. Musculoskeletal: Moves all limbs, limited ROM RLE, + Dressing in place at right hip incisio n site. + Weakness and difficulty in walking. No pedal edema. Neurological: No Focal neurologic deficits, + Weakness and Difficulty in walking due to fa ll and hip fracture. No CN deficits. Skin: Skin is warm and dry. No ecchymoses, or abrasions. Psychiatric: No Confusion, No agitation, Restricted affect and Judgement is fair. LABS: Recent Results (from the past 24 hour(s)) POC Glucose Result Value Ref Range Glucose, POC 156 (H) 65 - 99 mg/dL POC Glucose Result Value Ref Range Glucose, POC 191 (H) 65 - 99 mg/dL CBC with Differential Result Value Ref Range WBC 6.22 3.80 - 11.00 K/uL RBC 3.14 (L) 4.20 - 5.70 M/uL Hemoglobin 9.9 (L) 13.2 - 17.0 g/dL Hematocrit 29.5 (L) 39.0 - 50.0 % MCV 93.9 80.0 - 100.0 fl MCH 31.5 27.0 - 34.0 pg MCHC 33.6 32.0 - 35.5 g/dL RDW-SD 53.4 (H) 37 - 53 fl Platelet Count 92 (L) 150 - 400 K/uL MPV 11.7 fl Diff Type AUTOMATED % nRBC 0.8 (H) 0 /100WBC % Neutrophils 72.20 % IMMATURE GRANULOCYTE 0.60 % % Lymphocytes 10.30 % Monocyte % 13.30 % Eosinophils % 3.40 % Basophils % 0.20 % Neutrophils, Absolute 4.49 1.90 - 7.40 K/uL IMMATURE GRANS AB 0.04 0.00 - 0.07 K/uL Absolute Lymphocytes 0.64 (L) 1.00 - 3.90 K/uL Absolute Monocytes 0.83 (H) 0.00 - 0.80 K/uL Eosinophils, Absolute 0.21 0.00 - 0.50 K/uL Basophils, Absolute 0.01 0.00 - 0.10 K/uL Basic Metabolic Panel Result Value Ref Range Na 138 135 - 145 mmol/L K 3.9 3.5 - 4.9 mmol/L Cl 104 99 - 109 mmol/L CO2 22 (L) 23 - 32 mmol/L Anion Gap 16 5 - 20 mmol/L Glucose 124 (H) 65 - 99 mg/dL BUN 102 (H) 8 - 25 mg/dL Creatinine 3.7 (H) 0.70 - 1.30 mg/dL BUN/Creatinine Ratio 28 Calcium 8.5 8.5 - 10.5 mg/dL Estimated GFR 16 (L) >60 mL/min/1.73m2 POC Glucose Result Value Ref Range Glucose, POC 153 (H) 65 - 99 mg/dL POC Glucose Result Value Ref Range Glucose, POC 163 (H) 65 - 99 mg/dL PROBLEM LIST Principal Problem: Acute GI bleeding Active Problems: Closed comminuted intertrochanteric fracture of right femur with routine healing Acute renal failure superimposed on stage 3 chronic kidney disease Bacterial pneumonia Acute post-hemorrhagic anemia ATN (acute tubular necrosis) Permanent atrial fibrillation Hypertension goal BP (blood pressure) < 140/80 Type 2 diabetes mellitus with kidney complication, without long-term current use of insul in Chronic diastolic heart failure History of stroke Weakness generalized Difficulty in walking ASSESSMENT & PLAN Acute GI Bleeding: Likely upper GI in origin and possibly due to peptic ulcer disease, diff erential diagnosis includes severe esophagitis, gastropathy, AV malformation and/or medicati ons like Eliquis. Consulted GI services, discussed with Dr. Hernandez who graciously accepted t o see the patient and give additional recommendations including plans for EGD in 24 hours. Start Protonix drip, request is already on hold and transfuse PRBC as needed. Acute Post Hemorrhagic Anemia: H&H was low at 7.8 requiring 2 additional units of PRBC [place] sfusions. Staff reported episodes of black tarry stools concerning for upper GI bleeding, c onsulted Dr. Hernandez from gastroenterology services who graciously accepted to see the patient and will plan to proceed with EGD tomorrow. He is off Eliquis preparation for upper endosc opy, will start Protonix drip, monitor H&H periodically and transfuse as indicated. Closed Rght Femur Hip Fracture: Secondary to a fall, Orthopedic is on board and Dr. Baez performed ORIF without any complications Clinically stable and making slow progress, he is accepted by [facility] in [place], [place] with discharge plans possib ly early next weeks if remains stable. Will continue PT/OT, wound care and monitor progress . Acute Kidney Injury on Chronic Kidney Disease Stage 3: Likely due to ATN precipitated by d ehydration and blood loss, creatinine is down to 3.7 and continues to improve. Nephrology se pandey on board and Dr. Beckford following, appreciate his help and monitor BMP. Bacterial Pneumonia: Likely healthcare associated, COVID-19 test was negative. Stable and i mproving with antibiotics, will continue IV Zosyn for another 24 hours, added Symbicort and Albuterol Inhalers for symptomatic relief and monitor. Permanent Atrial Fibrillation: S/P Pacemaker placement in the past, currently stable and ra te controlled. Will continue Coreg BID but hold Eliquis due to risks of bleeding and monitor hemodynamics. Diabetes Mellitus Type 2 with Renal Manifestations: Blood sugar are stable, he is off Metfo rmin due elevated creatinine. Will continue Accu-Cheks and give Humalog insulin per sliding scale and monitor. Chronic Diastolic Congestive Heart Failure: Stable and not in acute exacerbation, will resu me Coreg at 3.125 mg BID but hold Lasix till hydration status is improved. History of Stroke: Stable, has difficulty in walking due to recent hip fracture and decondi tioning but otherwise hemodynamically stable. Will hold Eliquis due to risks of bleeding bu t continue and Lipitor as scheduled and monitor. Generalized Weakness / Difficulty in Walking: Altered factorial, secondary to fall, hip fra cture and deconditioning. PT/OT services following, he will need SNF placement when stable. DVT prophylaxis with SCD's and Lovenox. Discharge plans in another 1 to 2 to a SNF in [place], [place] when renal functions are st able and cleared by Nephrology services. Also called his daughter Ms. Huerta and updated her a bout plans at phone number [phone]. Jerry Chino MD 12/28/2019 Ghazal Ferrer COTA - 12/27/2019 4:15 PM PDT MISSED OCCUPATIONAL THERAPY VISIT: Therapy attempted to see the following patient today: Andres Guzmán Missed Visit (treatment on hold) The reason for the missed visit was: pt supine in bed upon ANTONY arrival. Pt jsut recieving 2 units of blood at this time, request ing to hold therapies at this time per RN. Pt reporting ambulated with PT earlier this date and had completed arm exercises as well. Will reattempt later as census permits and pt avail ability. Master Riley MD - 12/27/2019 2:06 PM PDTFormatting of this note might be different from the origin al. [id number] LOS: 6 days Andres Guzmán is a 89 y.o. man followed for acute on chronic renal failure. I assumed care from Dr. Tapia 12/27/19. He feels OK for the most part. Right leg does not hurt much. UO is good. There are no documented episodes of fever/nausea/vomiting/abdominal pain/shortness of breat h at rest/chest pain/cough. He remains non ambulatory. PMH, PSH, Social history reviewed in chart. Allergies and medications reviewed. Previous hi story summarized as above. Prior lab data and imaging reviewed.Patient's old records and lab s were reviewed in detail and summarized. Significant medical/surgical history Stage III chronic kidney disease History of gout Chronic anticoagulation with apixaban for history of chronic atrial fibrillation. History of GI GI bleed in 2017. History of blood transfusion Status post pacemaker placement for which he follows up with Dr. Enoch Thompson. History of stroke in 2006 with residual right-sided weakness Type 2 diabetes mellitus. ROS: Review of systems is as per history of present illness. Otherwise a 14 organ system review of systems was done and is negative. Examination: Vitals as noted. General appearance: Frail elderly man lying flat in bed in no distress. Speech clear but wi th occasional cough. Not short of breath at rest. Conversant Neck: FROM, supple Lungs: Effort fair. AE reduced B/L with scattered rales/wheeze. CV: Occasional PVC, no MRGs; normal carotid upstroke and amplitude without bruits. [place] r right anterior chest wall. Abdomen: Soft, non-tender; no masses or HSM Extremities: Minimal peripheral edema. No digital cyanosis Skin: no rash, lesions or ulcers Psych: Pleasant demeanor. Neurologic: Alert. No asterixis. Lee with clear urine. Vital Signs: BP 146/64 | Pulse 60 | Temp 36.9 C (98.4 F) (Oral) | Resp 16 | Ht 1.651 m (5' 5") | Wt 63.5 kg (140 lb) | SpO2 97% | BMI 23.30 kg/m Lab Results Component Value Date NA 137 12/27/2019 K 4.0 12/27/2019 CL 104 12/27/2019 CO2 24 12/27/2019 ANIONGAP 13 12/27/2019 GLU 118 (H) 12/27/2019 BUN 115 (H) 12/27/2019 CREA 4.2 (H) 12/27/2019 LABCREA 1.68 (A) 04/01/2019 EGFR 13 (L) 12/27/2019 BUNCREARATIO 27 12/27/2019 PTH 72.57 (A) 04/01/2019 CALCIUM 8.1 (L) 12/27/2019 PHOS 5.2 (H) 12/26/2019 PHOSPHORUSST 3.5 04/01/2019 ALBUMIN 3.3 12/26/2019 MG 2.2 12/27/2019 AGRATIO 0.8 (L) 07/28/2017 BILITOT 0.5 07/28/2017 ALKPEX 50 07/28/2017 AST 12 07/28/2017 ALT 12 07/28/2017 URICACID 7.4 04/01/2019 WBC 5.57 12/27/2019 HGB 7.8 (L) 12/27/2019 LABPLAT 121 (A) 04/01/2019 LDH 154 12/25/2019 PROTCREATUR 0.942 12/25/2019 Lab Results Component Value Date PHUR 5 01/07/2019 PROTUA Trace 01/07/2019 BLOODU Negative 01/07/2019 LEUKOESTUA Negative 01/07/2019 NITRITEUA NEGATIVE 12/24/2019 LABCOLO Yellow 01/07/2019 GLUCOSEU NEGATIVE 12/24/2019 BILIRUBINUA NEGATIVE 12/24/2019 KETONES Negative 01/07/2019 Lab Results Component Value Date C3 53 (L) 12/26/2019 C4 15 12/26/2019 HCVAB <0.1 12/25/2019 Lab Results Component Value Date HBA1C 5.5 07/26/2017 LABGLYC 111 07/26/2017 Lab Results Component Value Date BNP 506 (H) 07/26/2017 BNP 614 (H) 07/25/2017 EKG from 26 Dec 2019 [seen by myself] showed ventricular paced rhythm with frequent PVCs. Echocardiogram from 25 Dec 2019 showed ejection fraction of 55% with severe eccentric tricus pid regurgitation and severe pulmonary artery hypertension. There was also note of mild to moderate mitral regurgitation and mild aortic regurgitation. Renal sonogram from 24 Dec 2019 showed no hydronephrosis. There was noted to be renal corti prashant thinning likely to represent medical renal disease. Bilateral small renal cysts were no colt. Assessment and recommendations: 1. Acute on chronic renal failure 2. Possible acute tubular necrosis from hypotension in the postop setting. 3. Baseline chronic kidney disease stage III with a baseline creatinine of 1.7. 4. Right hip fracture secondary to mechanical fall status post open reduction and internal fixation 5. Acute blood loss anemia 6. Thrombocytopenia 7. Possible aspiration pneumonia He has acute on chronic renal failure likely secondary to ATN with hypotension in the posto p setting evidenced by acute blood loss anemia. Baseline creatinine is about 1.7 from 01 April 2019. This is likely from vascular disease with minimal proteinuria on urinalysis from December 2018. He has been following up with [facility] mena in [place]. That seems to be improving with nonoliguric state and small reduction in creatinine. At this time there is no clinical uremia, refractory volume overload, refractory acidosis, refractory hyperkalemia and no urgent indication of starting EXCAVATOR BACKHOE OPERATOR. Neither is there an indication for diagnostic kidney biopsy. Work-up for acute on chronic renal failure showed normal free light chain ratio from 24 December with elevated levels of kappa free light chains and lambda free light chains. C3 was borderline low with normal C4 in the presence of overall hypoalbuminemia. While the urinalysis on 23 December did show moderate blood there was no evidence of infection an d he had modest proteinuria. I doubt that he has acute vasculitis. This was likely a Lee specimen. He is markedly volume expanded but with preserved effective arterial blood volume with nono liguric state. He is not in heart failure even though the chest x-ray from the December shows bilat eral atelectasis and small effusions bilaterally. I would recommend continuing current medications. Mobilize Incentive spirometry. Transfuse Prn. No indication for EXCAVATOR BACKHOE OPERATOR for now. Await renal recovery. I discussed with him the concept of acute on chronic renal failure and interaction of BP/vo lume status/medications in preserving homeostasis with ESRD. He should be on a 2 gm Na diet. Please dose all medications for an eGFR of less than 10 ml/min/1.73 m2. NSAIDS/MADDEN 2 inhibitors should be avoided. Aluminum/magnesium containing antacids and magnesium/phosphate containing enemas should be avoided. Fluid should be restricted to less than 1.5 L in a 24 hr period. Strict I/O should be done. Plan of care was discussed with Dr. Chino. Alexander Beckford MD 12/27/2019 He was seen earlier in the day and charting was completed later after rounds. Dictation software, Sticky, was used which may contain error for similar sounding words. Pe rsonal communication is requested for any clarification. Also please do not construe any information/orders from unsigned notes. Recommendations are solely recommendations and not orders (unless explicitly stated so) and primary ordering authority is with primary team. Prognosis is guarded in view of multiple comorbid illnesses and acute on chronic renal fail ure including but not limited to potential need for EXCAVATOR BACKHOE OPERATOR . acetaminophen 1,000 mg Oral 3 times per day albuterol 4 puff Inhalation RT Q6H allopurinol 100 mg Oral Daily apixaban 2.5 mg Oral BID ascorbic acid 500 mg Oral Daily budesonide-formoterol 2 puff Inhalation RT BID ferrous sulfate 325 mg Oral Every Other Day insulin lispro 0-12 Units Subcutaneous TID WC pantoprazole 40 mg Oral BID AC piperacillin-tazobactam (ZOSYN) IVPB (custom doses) 3.375 g Intravenous Q12H pravastatin 40 mg Oral Nightly terazosin 10 mg Oral Daily with dinner dextrose 10% Marycarmen Park ARNP - 12/27/2019 11:03 AM PDT ORTHOPEDIC SURGERY PROGRESS NOTE Patient Name: Andres Guzmán Patient : 1930 Gender: male Date of admission: 12/21/2019 Post-operative day: 5 Status post Procedure(s) (LRB): NAILING IM BETSY FEMUR - GAMMA NAIL (Right) Assessment and Plan The patient chart and medications were reviewed in detail and the patient was seen and exam ined. No anticipated change in admission status. Disposition: Plan to discharge Monday, to [facility], once medically stable a nd cleared by PT/OT. Pain Acute post-operative pain. Pain is adequately controlled on current pain regimen. Continue current pain medications. Continue to mobilize patient: pre-medicate 30-40 minutes prior to activity. PT/OT: Mobilize with PT/OT: weight bear as tolerated and mobility precautions as ordered DVT/PE prophylaxis: Continue Eliquis per order, SCDs, early mobilization. Bowel Care: Continue stool softeners and laxatives per order, mobilization, encourage fluid s. Active comorbid conditions include: - dysrhythmias - CHF - hypertension - pacemaker - PVD - endocrine problem - diabetes; type 2; controlled (Hgb A1C < 6.5); without complications - GERD - CVA - anemia - Drugs/Alcohol/Tobacco - tobacco use Special Issues *Acute blood loss anemia due to surgical/ post-surgical blood loss, fracture and low baseli ne H&H preoperatively. Labs on 12/27/2019: Hemoglobin 7.8 g/dL; Hematocrit 22.9 %; Treatment p tim: blood transfusion, lab follow up and treatment per hospitalist; improved, stable *Acute kidney injury: rise in serum creatinine, evidenced by creatinine elevation on 12/27/19 20: Creatinine 4.2 mg/dL. Intake/Output Summary (Last 24 hours) at 12/27/2019 1104 Last data filed at 12/27/2019 0510 Gross per 24 hour Intake 600 ml Output 1000 ml Net -400 ml . Treatment plan: per chainstitch elastic attacher; slowly improving. *Blood pressure: labile; See VS for BP trending. Treatment plan: given IVF, continue PO or al intake; improved, stable *Hospital acquired pneumonia - on IV Zosyn, treatment per hospitalist. *Kenisha-incision blisters and tape adhesion injuries: see wound RN note for treatment. Patien t may require Provena vac placement prior to discharge if drainage continues - will coordina te with wound RN *Metabolic bone disorder: elevated PTH and phosphorus. Treatment per chainstitch elastic attacher (see thei r note). Subjective No chest pain, no shortness of breath, no abdominal pain, no nausea or vomiting, constipati on (resolving). Denies any dizziness this am. Objective Exam A&Ox3. Appears comfortable. Surgical dressing drainage slowed down, 3 small spots of mostly yellow serous drainage unde r foam cover. No calf tenderness to compression. Sensation is intact to light touch, motor intact, brisk capillary refill. Vital Signs Vitals: 12/27/19 0724 BP: 103/53 Pulse: 55 Resp: 16 Temp: 36.9 C (98.4 F) Min/Max Temp past 24 hours: Temp Av.7 C (98.1 F) Min: 36.5 C (97.7 F) Max: 37 C (98.6 F) Labs Recent Results (from the past 24 hour(s)) POC Glucose Result Value Ref Range Glucose, POC 161 (H) 65 - 99 mg/dL Complement C3 Ag Result Value Ref Range C3 COMPLEMENT 53 (L) 82 - 167 mg/dL Complement C4 Ag Result Value Ref Range C4 COMPLEMENT 15 14 - 44 mg/dL POC Glucose Result Value Ref Range Glucose, POC 154 (H) 65 - 99 mg/dL POC Glucose Result Value Ref Range Glucose, POC 147 (H) 65 - 99 mg/dL ECG 12 lead Result Value Ref Range INTERPRETATION TEXT Not Confirmed Magnesium Result Value Ref Range Magnesium 2.2 1.7 - 2.4 mg/dL Potassium Result Value Ref Range K 4.0 3.5 - 4.9 mmol/L Basic Metabolic Panel Result Value Ref Range Na 137 135 - 145 mmol/L K 4.0 3.5 - 4.9 mmol/L Cl 104 99 - 109 mmol/L CO2 24 23 - 32 mmol/L Anion Gap 13 5 - 20 mmol/L Glucose 118 (H) 65 - 99 mg/dL BUN 115 (H) 8 - 25 mg/dL Creatinine 4.2 (H) 0.70 - 1.30 mg/dL BUN/Creatinine Ratio 27 Calcium 8.1 (L) 8.5 - 10.5 mg/dL Estimated GFR 13 (L) >60 mL/min/1.73m2 Procalcitonin Result Value Ref Range PROCALCITONIN 0.41 <0.5 ng/mL CBC with Differential Result Value Ref Range WBC 5.57 3.80 - 11.00 K/uL RBC 2.37 (L) 4.20 - 5.70 M/uL Hemoglobin 7.8 (L) 13.2 - 17.0 g/dL Hematocrit 22.9 (L) 39.0 - 50.0 % MCV 96.6 80.0 - 100.0 fl MCH 32.9 27.0 - 34.0 pg MCHC 34.1 32.0 - 35.5 g/dL RDW-SD 48.4 37 - 53 fl Platelet Count 85 (L) 150 - 400 K/uL MPV 11.5 fl Diff Type AUTOMATED % nRBC 0.9 (H) 0 /100WBC % Neutrophils 65.70 % IMMATURE GRANULOCYTE 0.50 % % Lymphocytes 12.20 % Monocyte % 14.90 % Eosinophils % 6.30 % Basophils % 0.40 % Neutrophils, Absolute 3.66 1.90 - 7.40 K/uL IMMATURE GRANS AB 0.03 0.00 - 0.07 K/uL Absolute Lymphocytes 0.68 (L) 1.00 - 3.90 K/uL Absolute Monocytes 0.83 (H) 0.00 - 0.80 K/uL Eosinophils, Absolute 0.35 0.00 - 0.50 K/uL Basophils, Absolute 0.02 0.00 - 0.10 K/uL POC Glucose Result Value Ref Range Glucose, POC 186 (H) 65 - 99 mg/dL Patient has been updated on their condition and plan for treatment. Questions have been ans wered to their satisfaction. Further management to be dictated by patient's clinical conditi on, in coordination with multidisciplinary team. This case discussed with Dr. Baez & RN. Electronically signed by: ENEDINA Ramos, 12/27/2019 11:03 AM Jerry Alcantar MD - 0 8:01 AM PDT Service: Hospitalist Daily Progress Note Andres Guzmán 89 y.o. : 1930 SEX: male PCP: Barbara Gilman MD Hospital Day: LOS: 6 SUBJECTIVE Patient Summary: Patient is an 89-year-old male with past medical history of HTN, DM Type 2, CKD Stage III w ith baseline creatinine 1.7 who was admitted as a transfer from [facility] due t o a mechanical fall sustaining right hip fracture. Orthopedic services involved and Dr. Pinon on performed ORIF without any complications. Postoperatively patient had episodes of hypote nsion to worsening kidney functions and a rise in creatinine up to4.4 with EGFR of 13. He w as given IV fluids for hydration purposes but without any significant improvement. Nephrolo gy services consulted and Dr. Tapia followed, renal ultrasound done which was negative for hydronephrosis but showed renal cortical thinning to likely resent medical renal disease. H ospital stay was complicated by episodes of lethargy and confusion. He developed cough symp toms and CO VID 19 was tested which was negative. Chest x-ray showed mild bilateral interst itial opacities consistent with either pulmonary edema or atypical pneumonia. He was starte d IV Zosyn for possible healthcare associated pneumonia. Due to pneumonia and deteriorating renal functions his discharge was delayed. PT/OT services recommended IPR but Dr. Reed did not have beds and recommended SNF for rehabilitation. Events Overnight: Patient seen and examined. Overnight events noted. Patient was seen awake and alert. He rep orted feeling alright, slept some hours and feels rested this AM. Has some cough with minima l expectoration, also reported heartburn symptoms. Denied headaches, nausea, vomiting, chest pain, shortness of breath. Also denied abdominal pain, diarrhea or constipation. Appetite i s slowly improving. Remained afebrile. Scheduled Medications acetaminophen, 1,000 mg, Oral, 3 times per day allopurinol, 100 mg, Oral, Daily apixaban, 2.5 mg, Oral, BID ascorbic acid, 500 mg, Oral, Daily dextrose, 12.5-25 g, Intravenous, PRN And dextrose 10%, , Intravenous, Continuous PRN docusate sodium, 100 mg, Oral, BID PRN ferrous sulfate, 325 mg, Oral, Every Other Day HYDROmorphone, 1 mg, Intravenous, Q8H PRN insulin lispro, 0-12 Units, Subcutaneous, TID WC meclizine, 25 mg, Oral, Q8H PRN ondansetron, 4 mg, Oral, Q6H PRN ondansetron, 4 mg, Intravenous, Q6H PRN piperacillin-tazobactam (ZOSYN) IVPB (custom doses), 3.375 g, Intravenous, Q12H pravastatin, 40 mg, Oral, Nightly senna, 8.6 mg, Oral, BID PRN terazosin, 10 mg, Oral, Daily with dinner Continuous Infusions . PRN Medications Current Facilty-Administered PRN Medications Ordered in [facility] Medication Dose Route Frequency Provider Last Rate Last Dose dextrose 50% injection 12.5-25 g 12.5-25 g Intravenous PRN Anders Soto PA-C 25 g at 12/22/19 0843 And dextrose 10% (D10W) infusion Intravenous Continuous PRN Anders Soto PA-C docusate sodium (COLACE) capsule 100 mg 100 mg Oral BID PRN Anders Soto PA-C HYDROmorphone (DILAUDID) injection 1 mg 1 mg Intravenous Q8H PRN Jerry Nathen Chino MD 0.5 mg at 12/26/19 1659 meclizine (ANTIVERT) tablet 25 mg 25 mg Oral Q8H PRN Regino Greene MD 25 mg at 12/08 1011 ondansetron (ZOFRAN ODT) disintegrating tablet 4 mg 4 mg Oral Q6H PRN Anders Soto PA-C ondansetron (ZOFRAN) injection 4 mg 4 mg Intravenous Q6H PRN Anders Soto PA-C 4 mg at 12/22/19 1016 senna (SENOKOT) tablet 8.6 mg 8.6 mg Oral BID PRN Anders Soto PA-C Allergy: Allergies Allergen Reactions Codeine Nausea And Vomiting and Vertigo Morphine And Related Nausea Only Nausea, Slow to recover OBJECTIVE Vital Signs: Vitals: 12/27/19 0724 BP: 103/53 Pulse: 55 Resp: 16 Temp: 36.9 C (98.4 F) Intake/Output Summary (Last 24 hours) at 12/27/2019 0801 Last data filed at 12/27/2019 0510 Gross per 24 hour Intake 1000 ml Output 1000 ml Net 0 ml Examination: Constitutional: Patient is alert and oriented x 3. Appears tired and weak but not in acute distress. HEENT: Head: Normocephalic and Atraumatic. Nose: Nose normal. Mouth/Throat: Oropharynx is clear and moist. Eyes: No conjunctiva injection. EOM Intact. PERRLA. No scleral icterus. Neck: Neck supple. No JVD present. No tracheal deviation present. No thyromegaly Cardiovascular: Atrial Fibrillation, no murmur heard and no friction rub. Pulmonary/Chest: + Few rales at bases and mid zones with few rhonchi's. Abdominal: Soft, BS present, no distension, no ascites. No rebound tenderness and no guardi ng. Musculoskeletal: Moves all limbs, limited ROM RLE, + Dressing in place at right hip incisio n site. + Weakness and difficulty in walking. No pedal edema. Neurological: No Focal neurologic deficits, + Weakness and Difficulty in walking due to fa ll and hip fracture. No CN deficits. Skin: Skin is warm and dry. No ecchymoses, or abrasions. Psychiatric: No Confusion, No agitation, Restricted affect and Judgement is fair. LABS: Recent Results (from the past 24 hour(s)) POC Glucose Result Value Ref Range Glucose, POC 161 (H) 65 - 99 mg/dL Complement C3 Ag Result Value Ref Range C3 COMPLEMENT 53 (L) 82 - 167 mg/dL Complement C4 Ag Result Value Ref Range C4 COMPLEMENT 15 14 - 44 mg/dL POC Glucose Result Value Ref Range Glucose, POC 154 (H) 65 - 99 mg/dL POC Glucose Result Value Ref Range Glucose, POC 147 (H) 65 - 99 mg/dL ECG 12 lead Result Value Ref Range INTERPRETATION TEXT Not Confirmed Magnesium Result Value Ref Range Magnesium 2.2 1.7 - 2.4 mg/dL Potassium Result Value Ref Range K 4.0 3.5 - 4.9 mmol/L Basic Metabolic Panel Result Value Ref Range Na 137 135 - 145 mmol/L K 4.0 3.5 - 4.9 mmol/L Cl 104 99 - 109 mmol/L CO2 24 23 - 32 mmol/L Anion Gap 13 5 - 20 mmol/L Glucose 118 (H) 65 - 99 mg/dL BUN 115 (H) 8 - 25 mg/dL Creatinine 4.2 (H) 0.70 - 1.30 mg/dL BUN/Creatinine Ratio 27 Calcium 8.1 (L) 8.5 - 10.5 mg/dL Estimated GFR 13 (L) >60 mL/min/1.73m2 Procalcitonin Result Value Ref Range PROCALCITONIN 0.41 <0.5 ng/mL CBC with Differential Result Value Ref Range WBC 5.57 3.80 - 11.00 K/uL RBC 2.37 (L) 4.20 - 5.70 M/uL Hemoglobin 7.8 (L) 13.2 - 17.0 g/dL Hematocrit 22.9 (L) 39.0 - 50.0 % MCV 96.6 80.0 - 100.0 fl MCH 32.9 27.0 - 34.0 pg MCHC 34.1 32.0 - 35.5 g/dL RDW-SD 48.4 37 - 53 fl Platelet Count 85 (L) 150 - 400 K/uL MPV 11.5 fl Diff Type AUTOMATED % nRBC 0.9 (H) 0 /100WBC % Neutrophils 65.70 % IMMATURE GRANULOCYTE 0.50 % % Lymphocytes 12.20 % Monocyte % 14.90 % Eosinophils % 6.30 % Basophils % 0.40 % Neutrophils, Absolute 3.66 1.90 - 7.40 K/uL IMMATURE GRANS AB 0.03 0.00 - 0.07 K/uL Absolute Lymphocytes 0.68 (L) 1.00 - 3.90 K/uL Absolute Monocytes 0.83 (H) 0.00 - 0.80 K/uL Eosinophils, Absolute 0.35 0.00 - 0.50 K/uL Basophils, Absolute 0.02 0.00 - 0.10 K/uL POC Glucose Result Value Ref Range Glucose, POC 186 (H) 65 - 99 mg/dL PROBLEM LIST Principal Problem: Closed comminuted intertrochanteric fracture of right femur with routine healing Active Problems: Acute renal failure superimposed on stage 3 chronic kidney disease Bacterial pneumonia Acute post-hemorrhagic anemia Permanent atrial fibrillation Hypertension goal BP (blood pressure) < 140/80 Type 2 diabetes mellitus with kidney complication, without long-term current use of insul in Chronic diastolic heart failure History of stroke Weakness generalized Difficulty in walking ASSESSMENT & PLAN Closed Rght Femur Hip Fracture: Secondary to a fall, Orthopedic is on board and Dr. Baez performed ORIF without any complications PT/OT services following and to help improve his s trength and mobility. He is accepted by [facility] in [place], [place] and discharge is delayed due to renal failure. Will continue PT/OT, wound care and anticoa gulation with Eliquis and monitor progress. Acute Post Hemorrhagic Anemia: H&H is low at 7.8 today, will monitor CBC and if franco low t hen transfuse PRBC as indicated. Acute Kidney Injury on Chronic Kidney Disease Stage 3: Likely due to ATN precipitated by d ehydration and blood loss, creatinine is down to 4.2 today and seems to be stabilizing. Neph rology service on board and Dr. Tapia following, appreciate his help and monitor BMP. Bacterial Pneumonia: Likely healthcare associated, COVID-19 test was negative. Clinically i mproving with antibiotics but has cough and difficulty expectoration. He probably has underl zoe COPD due to prior history of smoking, will add Symbicort and Albuterol Inhalers and con tinue IV Zosyn as scheduled. When ready for discharge then transition to oral Levaquin. Permanent Atrial Fibrillation: S/P Pacemaker placement in the past, currently stable and ra te controlled. Will continue Coreg BID and Eliquis 2.5 mg BID for anticoagulation and monito r hemodynamics. Diabetes Mellitus Type 2 with Renal Manifestations: Blood sugar are stable, he is off Metfo rmin due to renal failure and elevated creatinine. Will continue Accu-Cheks and give Humalog insulin per sliding scale and monitor. Chronic Diastolic Congestive Heart Failure: Stable and not in acute exacerbation at this ti me, is currently off medications due to low blood pressure and had remained stable. Will re sume Coreg and Lasix when hemodynamically stable and monitor progress. History of Stroke: Stable, has difficulty in walking due to recent hip fracture and decondi tioning but otherwise hemodynamically stable. Will continue Eliquis and Lipitor as schedule d and no changes recommended at this time. Generalized Weakness / Difficulty in Walking: Altered factorial, secondary to fall, hip fra cture and deconditioning. PT/OT services following, he will need SNF placement when stable. DVT prophylaxis with SCD's and Lovenox. Discharge plans in another 2 to 3 days to a SNF in [place], [place] when renal functions a re stable and cleared by Nephrology services. Jerry Chino MD 12/27/2019 Linda Montalvo RN - 12/26/2019 5:09 PM PDT [facility] Service: Wound Care Consult Note Hospital Day: 5 SUBJECTIVE Patient Summary: Wound care called by floor RN due to moderately draining wound and i f Prevena wound VAC would be appropriate. Due to new blistering to leg, concern for further blistering due to adhesive reaction. OBJECTIVE 12/26/19 1709 Visit Information Visit Type Wound re-assessment Wound 12/25/19 1050 Other (comment) Right hip blister(s);skin tear Placement Date/Time: 12/25/19 1050 Present on Hospital Admission: No Primary Wound Type: Other (comment) Side: Right Location: hip Wound Subtype: blister(s);skin tear Wound WDL ex Dressing Appearance moist drainage Base blistered;moist;pink;reddened Wound Base Comment Ruptured bullae and blisters. Draining incision Periwound Area redness;moist Drainage Characteristics/Odor serosanguineous;yellow Drainage Amount moderate Wound Cleaning cleansed with;sterile normal saline Dressing dressing initiated;silver impregnated dressing;hydrofiber;foam (Versatel, transfer foam) Photo in Chart yes Visit Summary Next Wound/Ostomy Visit Date 12/29/19 PROBLEM LIST Patient Active Problem List Diagnosis Permanent atrial fibrillation Cardiac pacemaker in situ Hypertension goal BP (blood pressure) < 140/80 HLD (hyperlipidemia) Type 2 diabetes mellitus with kidney complication, without long-term current use of ins ulin Chronic diastolic heart failure Anemia Snoring Moderate to severe pulmonary hypertension Moderate tricuspid regurgitation Dilated aortic root Chronic kidney disease, stage IV (severe) History of stroke On apixaban therapy Cholelithiasis with acute cholecystitis without obstruction Phimosis Closed comminuted intertrochanteric fracture of right femur with routine healing 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 Layer of versatel miko william with Ag aquacel to help control drainage. Covered in transfer foam. Thank you for allowing me to participate in the care of this patient. I will continue to follow with you. Please call if there are any additional questions. Linda Cedeno RN 17:16 Marycarmen Park ARNP - 12/26/2019 12:55 PM PDTFormatting of this note might be different from the jayme helm ORTHOPEDIC SURGERY PROGRESS NOTE Patient Name: Andres Guzmán Patient : 1930 Gender: male Date of admission: 12/21/2019 Post-operative day: 4 Status post Procedure(s) (LRB): NAILING IM BETSY FEMUR - GAMMA NAIL (Right) Assessment and Plan The patient chart and medications were reviewed in detail and the patient was seen and exam ined. No anticipated change in admission status. Disposition: Plan to discharge Monday, to Inpatient Rehab, once medically stable and cleare d by PT/OT. Pain Acute post-operative pain. Pain is adequately controlled on current pain regimen. Continue current pain medications. Continue to mobilize patient: pre-medicate 30-40 minutes prior to activity. PT/OT: Mobilize with PT/OT: weight bear as tolerated and mobility precautions as ordered DVT/PE prophylaxis: Continue Eliquis per order, SCDs, early mobilization. Bowel Care: Continue stool softeners and laxatives per order, mobilization, encourage fluid s. Active comorbid conditions include: - dysrhythmias - CHF - hypertension - pacemaker - PVD - endocrine problem - diabetes; type 2; controlled (Hgb A1C < 6.5); without complications - GERD - CVA - anemia - Drugs/Alcohol/Tobacco - tobacco use Special Issues *Acute blood loss anemia due to surgical/ post-surgical blood loss and low baseline H&H pre operatively. Labs on 12/24/2019: Hemoglobin 9.0 g/dL; Hematocrit 28.1 %; Treatment plan: blood transfusion and lab follow up *Acute kidney injury: rise in serum creatinine, evidenced by creatinine elevation on 12/26/19 20: Creatinine 4.4 mg/dL. Intake/Output Summary (Last 24 hours) at 12/26/2019 1256 Last data filed at 12/26/2019 1100 Gross per 24 hour Intake 725 ml Output 450 ml Net 275 ml . Treatment plan: treatment per nephrology. *Blood pressure: hypotensive; See VS for BP trending. Treatment plan: fluid management *Hospital acquired pneumonia - on IV Zosyn, treatment per hospitalist. *Kenisha-incision blisters and tape adhesion injuries: see wound RN note for treatment. Patien t may require Provena vac placement prior to discharge if drainage continues - will coordina te with wound RN Subjective No chest pain, no shortness of breath, no abdominal pain, no nausea or vomiting, patient st ates he feels better today, is unable to say if he is still dizzy when he gets up as he has not gotten up yet today when I had seen him. Objective Exam A&Ox3. Appears comfortable. Surgical dressing has moderate amount of serosanguineous drainage under the foam covering. No signs of infection or dehiscence. Moderate edema of the upper right thigh, soft to palpat ion. No calf tenderness to compression. Sensation is intact to light touch, motor intact, brisk capillary refill. Vital Signs Vitals: 12/26/19 1115 BP: 131/63 Pulse: 60 Resp: 16 Temp: 36.6 C (97.9 F) Min/Max Temp past 24 hours: Temp Av.6 C (97.9 F) Min: 36.4 C (97.6 F) Max: 36.7 C (98.1 F) Labs Recent Results (from the past 24 hour(s)) ECHO Complete Result Value Ref Range LVEF-TTE TRANSTHORACIC ECHO 55 % RA PRESSURE 15 mmHg LVIDd 5.3 cm FS 34 % LA volume 121.89 mL Ascending aorta 3.82 cm AV regurgitation pressure 1/2 time 522.63 msec AV mean gradient 35.19 mmHg Aortic Valve Area by Continuity VTI 3.02 cm2 PV peak gradient 1.32 mmHg LVOT diameter 2.39 cm LVOT peak naomi 78.71 cm/s LVOT peak VTI 15.13 cm AV peak naomi 129.87 cm/s AV VTI 22.48 cm AV peak gradient 6.75 mmHg TV peak gradient 1.48 mmHg PV mean gradient 0.41 mmHg LA Volume Index 72 mL/m2 AV LVOT Peak Gradient 2.48 mmHg AV LVOT Mean Gradient 1.05 mmHg TR Peak Gradient 64 mmHg RV Free Wall Peak S' 11.2 cm/s TR Velocity 400.4 cm/s PI Peak Velocity 57.54 cm/s RV Diastolic Basal Diameter 4.88 cm LV Tucker's Biplane EF 55 % LV ED Volume (Tucker's) 70.4 ml LV ED Volume Index 41 ml/m2 LV ES Volume 31.44 ml LVOT Mean Velocity 46.08 cm/s RVSP Estimated 79 mmHg MV Deceleration Time 138.12 msec MV E/A Ratio 1.25 MV Peak A-Wave 62.69 cm/s MV Peak E-Wave 78.54 cm/s TV Deceleration Time 467.99 msec TV Peak A-Wave 0.72 cm/s TV Peak E-Wave 60.88 cm/s PV Mean Velocity 28.79 cm/s AV Deceleration Time 1,802.18 msec AV Mean Velocity 290.99 cm/s RA Area 31.69 cm2 LA/Aorta Ratio 1.2 LA Major 0.2248 cm LV ES Volume Index 18 ml/m2 Cardiac Output 4.41 l/min Cardiac Index 2.59 l/min/m2 Vitals Heart Rate Rest 65 Vitals Height 165.0 Vitals Weight 63.50 Aortic Root Diameter 4.1 cm IVS Diastolic Thickness MM 0.97 cm LVPW Diastolic Thickness MM 0.87 cm IVS Systolic Thickness MM 1.5 cm LV Systolic Diameter MM 3.49 cm LVPW Systolic Thickness MM 1.61 cm AV Cusp Seperation MM 2.17 cm LA Systolic Diameter MM 4.9 cm TAPSE 1.33 cm POC Glucose Result Value Ref Range Glucose, POC 133 (H) 65 - 99 mg/dL POC Glucose Result Value Ref Range Glucose, POC 169 (H) 65 - 99 mg/dL Renal Function Panel Result Value Ref Range Na 134 (L) 135 - 145 mmol/L K 5.0 (H) 3.5 - 4.9 mmol/L Cl 103 99 - 109 mmol/L CO2 22 (L) 23 - 32 mmol/L Anion Gap 14 5 - 20 mmol/L Glucose 118 (H) 65 - 99 mg/dL BUN 116 (H) 8 - 25 mg/dL Creatinine 4.4 (H) 0.70 - 1.30 mg/dL Calcium 8.3 (L) 8.5 - 10.5 mg/dL Albumin 3.3 3.3 - 4.8 g/dL Phosphorus 5.2 (H) 2.3 - 4.8 mg/dL Estimated GFR 13 (L) >60 mL/min/1.73m2 Parathyroid Hormone, Intraoperative Result Value Ref Range PTH Intact 167.0 (H) 8.7 - 79.6 pg/mL POC Glucose Result Value Ref Range Glucose, POC 138 (H) 65 - 99 mg/dL POC Glucose Result Value Ref Range Glucose, POC 161 (H) 65 - 99 mg/dL Patient has been updated on their condition and plan for treatment. Questions have been ans wered to their satisfaction. Further management to be dictated by patient's clinical conditi on, in coordination with multidisciplinary team. This case has been discussed with Dr. Baez, RN and CM. Electronically signed by: ENEDINA Ramos, 12/26/2019 12:55 PM ashmi, Jerry Malik MD - 0 7:37 AM PDT Service: Hospitalist Daily Progress Note Andres Guzmán 89 y.o. : 1930 SEX: male PCP: Barbara Gilman MD Hospital Day: LOS: 5 SUBJECTIVE Patient Summary: Patient is an 89-year-old male with past medical history of HTN, DM Type 2, CKD Stage III w ith baseline creatinine 1.7 who was admitted as a transfer from [facility] due t o a mechanical fall sustaining right hip fracture. Orthopedic services involved and Dr. Pinon on performed ORIF without any complications. Postoperatively patient had episodes of hypote nsion to worsening kidney functions and a rise in creatinine up to4.4 with EGFR of 13. He w as given IV fluids for hydration purposes but without any significant improvement. Nephrolo gy services consulted and Dr. Tapia followed, renal ultrasound done which was negative for hydronephrosis but showed renal cortical thinning to likely resent medical renal disease. H ospital stay was complicated by episodes of lethargy and confusion. He developed cough symp toms and CO VID 19 was tested which was negative. Chest x-ray showed mild bilateral interst itial opacities consistent with either pulmonary edema or atypical pneumonia. He was starte d IV Zosyn for possible healthcare associated pneumonia. Due to pneumonia and deteriorating renal functions his discharge was delayed. PT/OT services recommended IPR but Dr. Reed did not have beds and recommended SNF for rehabilitation. Events Overnight: Patient seen and examined. Overnight events noted. Patient was seen awake and alert. He rep orted feeling weak and fatigued, also has right hip pain and difficulty in walking. He slept fair last night but does not feel rested. Denied headaches, nausea, vomiting, chest pain, s hortness of breath, cough. Also denied abdominal pain, diarrhea or constipation. Appetite is low and slowly improving. Remained afebrile. Scheduled Medications acetaminophen, 1,000 mg, Oral, 3 times per day allopurinol, 100 mg, Oral, Daily apixaban, 2.5 mg, Oral, BID ascorbic acid, 500 mg, Oral, Daily dextrose, 12.5-25 g, Intravenous, PRN And dextrose 10%, , Intravenous, Continuous PRN docusate sodium, 100 mg, Oral, BID PRN ferrous sulfate, 325 mg, Oral, Every Other Day insulin lispro, 0-12 Units, Subcutaneous, TID WC meclizine, 25 mg, Oral, Q8H PRN ondansetron, 4 mg, Oral, Q6H PRN ondansetron, 4 mg, Intravenous, Q6H PRN piperacillin-tazobactam (ZOSYN) IVPB (custom doses), 3.375 g, Intravenous, Q12H pravastatin, 40 mg, Oral, Nightly senna, 8.6 mg, Oral, BID PRN sodium bicarbonate, 100 mEq, Intravenous, Once terazosin, 10 mg, Oral, Daily with dinner Continuous Infusions . PRN Medications Current Facilty-Administered PRN Medications Ordered in Epic Medication Dose Route Frequency Provider Last Rate Last Dose dextrose 50% injection 12.5-25 g 12.5-25 g Intravenous PRN Anders Soto PA-C 25 g at 12/22/19 0843 And dextrose 10% (D10W) infusion Intravenous Continuous PRN Anders Soto PA-C docusate sodium (COLACE) capsule 100 mg 100 mg Oral BID PRN Anders Soto PA-C meclizine (ANTIVERT) tablet 25 mg 25 mg Oral Q8H PRN Regino Greene MD 25 mg at 12/08 1011 ondansetron (ZOFRAN ODT) disintegrating tablet 4 mg 4 mg Oral Q6H PRN Anders Soto PA-C ondansetron (ZOFRAN) injection 4 mg 4 mg Intravenous Q6H PRN Anders Soto PA-C 4 mg at 12/22/19 1016 senna (SENOKOT) tablet 8.6 mg 8.6 mg Oral BID PRN Anders Soto PA-C Allergy: Allergies Allergen Reactions Codeine Nausea And Vomiting and Vertigo Morphine And Related Nausea Only Nausea, Slow to recover OBJECTIVE Vital Signs: Vitals: 12/26/19 0726 BP: 124/56 Pulse: 63 Resp: 16 Temp: 36.6 C (97.8 F) Intake/Output Summary (Last 24 hours) at 12/26/2019 0749 Last data filed at 12/26/2019 0000 Gross per 24 hour Intake 325 ml Output 450 ml Net -125 ml Examination: Constitutional: Patient is alert and oriented x 3. Appears tired and weak but not in acute distress. HEENT: Head: Normocephalic and Atraumatic. Nose: Nose normal. Mouth/Throat: Oropharynx is clear and moist. Eyes: No conjunctiva injection. EOM Intact. PERRLA. No scleral icterus. Neck: Neck supple. No JVD present. No tracheal deviation present. No thyromegaly Cardiovascular: Atrial Fibrillation, no murmur heard and no friction rub. Pulmonary/Chest: + Few rales at bases and mid zones but no wheezes. Abdominal: Soft, BS present, no distension, no ascites. No rebound tenderness and no guardi ng. Musculoskeletal: Moves all limbs, limited ROM RLE, + Dressing in place at right hip incisio n site. + Weakness and difficulty in walking. No pedal edema. Neurological: No Focal neurologic deficits, + Weakness and Difficulty in walking due to fa ll and hip fracture. No CN deficits. Skin: Skin is warm and dry. No ecchymoses, or abrasions. Psychiatric: No Confusion, No agitation, Restricted affect and Judgement is fair. LABS: Recent Results (from the past 24 hour(s)) POC Glucose Result Value Ref Range Glucose, POC 136 (H) 65 - 99 mg/dL POC Glucose Result Value Ref Range Glucose, POC 148 (H) 65 - 99 mg/dL ECHO Complete Result Value Ref Range LVEF-TTE TRANSTHORACIC ECHO 55 % RA PRESSURE 15 mmHg LVIDd 5.3 cm FS 34 % LA volume 121.89 mL Ascending aorta 3.82 cm AV regurgitation pressure 1/2 time 522.63 msec AV mean gradient 35.19 mmHg Aortic Valve Area by Continuity VTI 3.02 cm2 PV peak gradient 1.32 mmHg LVOT diameter 2.39 cm LVOT peak naomi 78.71 cm/s LVOT peak VTI 15.13 cm AV peak naomi 129.87 cm/s AV VTI 22.48 cm AV peak gradient 6.75 mmHg TV peak gradient 1.48 mmHg PV mean gradient 0.41 mmHg LA Volume Index 72 mL/m2 AV LVOT Peak Gradient 2.48 mmHg AV LVOT Mean Gradient 1.05 mmHg TR Peak Gradient 64 mmHg RV Free Wall Peak S' 11.2 cm/s TR Velocity 400.4 cm/s PI Peak Velocity 57.54 cm/s RV Diastolic Basal Diameter 4.88 cm LV Tucker's Biplane EF 55 % LV ED Volume (Tucker's) 70.4 ml LV ED Volume Index 41 ml/m2 LV ES Volume 31.44 ml LVOT Mean Velocity 46.08 cm/s RVSP Estimated 79 mmHg MV Deceleration Time 138.12 msec MV E/A Ratio 1.25 MV Peak A-Wave 62.69 cm/s MV Peak E-Wave 78.54 cm/s TV Deceleration Time 467.99 msec TV Peak A-Wave 0.72 cm/s TV Peak E-Wave 60.88 cm/s PV Mean Velocity 28.79 cm/s AV Deceleration Time 1,802.18 msec AV Mean Velocity 290.99 cm/s RA Area 31.69 cm2 LA/Aorta Ratio 1.2 LA Major 0.2248 cm LV ES Volume Index 18 ml/m2 Cardiac Output 4.41 l/min Cardiac Index 2.59 l/min/m2 Vitals Heart Rate Rest 65 Vitals Height 165.0 Vitals Weight 63.50 Aortic Root Diameter 4.1 cm IVS Diastolic Thickness MM 0.97 cm LVPW Diastolic Thickness MM 0.87 cm IVS Systolic Thickness MM 1.5 cm LV Systolic Diameter MM 3.49 cm LVPW Systolic Thickness MM 1.61 cm AV Cusp Seperation MM 2.17 cm LA Systolic Diameter MM 4.9 cm TAPSE 1.33 cm POC Glucose Result Value Ref Range Glucose, POC 133 (H) 65 - 99 mg/dL POC Glucose Result Value Ref Range Glucose, POC 169 (H) 65 - 99 mg/dL Renal Function Panel Result Value Ref Range Na 134 (L) 135 - 145 mmol/L K 5.0 (H) 3.5 - 4.9 mmol/L Cl 103 99 - 109 mmol/L CO2 22 (L) 23 - 32 mmol/L Anion Gap 14 5 - 20 mmol/L Glucose 118 (H) 65 - 99 mg/dL BUN 116 (H) 8 - 25 mg/dL Creatinine 4.4 (H) 0.70 - 1.30 mg/dL Calcium 8.3 (L) 8.5 - 10.5 mg/dL Albumin 3.3 3.3 - 4.8 g/dL Phosphorus 5.2 (H) 2.3 - 4.8 mg/dL Estimated GFR 13 (L) >60 mL/min/1.73m2 Parathyroid Hormone, Intraoperative Result Value Ref Range PTH Intact 167.0 (H) 8.7 - 79.6 pg/mL PROBLEM LIST Principal Problem: Closed comminuted intertrochanteric fracture of right femur with routine healing Active Problems: Acute renal failure superimposed on stage 3 chronic kidney disease Bacterial pneumonia Permanent atrial fibrillation Hypertension goal BP (blood pressure) < 140/80 Type 2 diabetes mellitus with kidney complication, without long-term current use of insul in Chronic diastolic heart failure History of stroke Weakness generalized Difficulty in walking ASSESSMENT & PLAN Closed Rght Femur Hip Fracture: Secondary to a fall, Orthopedic is on board and Dr. Baez performed ORIF without any complications PT/OT services following and initially recommended IPR but due to unavailability of beds SNF placement is recommended. He is accepted in [place], [place] however due to renal failure his discharge is delayed for another 3 to 4 days. Will continue physical therapy, wound care and anticoagulation with Eliquis and monitor prog ress. Acute Post Hemorrhagic Anemia: H&H is currently stable at present after blood transfusions, will monitor CBC and transfuse PRBC as indicated. Acute Kidney Injury on Chronic Kidney Disease Stage 3: Likely due to ATN precipitated by d ehydration and blood loss, creatinine is at 4.4 and seems to be stabilizing now. Mild hyperk alemia again noted at 5.0, will give a dose of IV Sodium Bicarbonate and monitor BMP. Nephro logy versus on board and Dr. Tapia helping in renal failure, he may take another 2 to 3 day s to recover. Bacterial Pneumonia: Likely healthcare associated, COVID-19 test was negative. Clinically s table and improving with antibiotics. Will continue IV Zosyn for now and transition to oral Levaquin in another 1 to 2 days and monitor blood cultures. Permanent Atrial Fibrillation: S/P Pacemaker placement in the past, current stable and rate controlled. Will continue Coreg BID and Eliquis 2.5 mg BID for anticoagulation and monitor hemodynamics. Diabetes Mellitus Type 2 with Renal Manifestations: Blood sugar are stable, he is off Metfo rmin due to renal failure and elevated creatinine. Will continue Accu-Cheks and give Humalog insulin per sliding scale and monitor. Chronic Diastolic Congestive Heart Failure: Stable and not in acute exacerbation at this ti me, is currently off medications due to low blood pressure and had remained stable. Will re sume Coreg and Lasix when hemodynamically stable and monitor progress. History of Stroke: Stable with recent hip fracture and difficulty in walking, hemodynamical ly stable and blood pressure is improving. Will continue Eliquis and Lipitor as scheduled a nd no changes recommended at this time. Generalized Weakness / Difficulty in Walking: Altered factorial, secondary to fall, hip fra cture and deconditioning. PT/OT services involved and recommending SNF placement when stabl e. DVT prophylaxis with SCD's and Lovenox. Discharge plans in 3 to 4 days to a SNF in [place], [place] when renal functions are stabl e and he is cleared by Nephrology and Orthopedic services. Jerry Chino MD 12/26/2019 Hayley Peres MD - 12/26/2019 7:02 AM PDT Hospital Problem List: Patient Active Problem List Diagnosis Permanent atrial fibrillation Cardiac pacemaker in situ Hypertension goal BP (blood pressure) < 140/80 HLD (hyperlipidemia) Type 2 diabetes mellitus without complication Chronic diastolic heart failure Anemia Snoring Moderate to severe pulmonary hypertension Moderate tricuspid regurgitation Dilated aortic root Chronic kidney disease, stage IV (severe) History of stroke On apixaban therapy Cholelithiasis with acute cholecystitis without obstruction Phimosis Closed comminuted intertrochanteric fracture of right femur with routine healing 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 He denies any CP or SOB. His urine output NOTED . The following portions of the patient's history were reviewed and updated as appropriate: l aboratory data, radiologic studies, allergies, current medications, and problem list. As in History of Present Illness & Assessment below. All the pertinent systems were reviewe d and were otherwise negative. acetaminophen 1,000 mg Oral 3 times per day albumin 25 g Intravenous Q6H allopurinol 100 mg Oral Daily apixaban 2.5 mg Oral BID ascorbic acid 500 mg Oral Daily ferrous sulfate 325 mg Oral Every Other Day insulin lispro 0-12 Units Subcutaneous TID WC piperacillin-tazobactam (ZOSYN) IVPB (custom doses) 3.375 g Intravenous Q12H pravastatin 40 mg Oral Nightly terazosin 10 mg Oral Daily with dinner dextrose 10% P.E. BP 123/59 | Pulse 61 | Temp 36.4 C (97.6 F) (Oral) | Resp 16 | Ht 1.651 m (5' 5") | Wt 63.5 kg (140 lb) | SpO2 93% | BMI 23.30 kg/m General appearance: Pleasant, not in acute distress. Neck: Supple without tracheal deviation or jugular venous distension. Head and ENT: Head is atraumatic. The oropharynx is without erythema or thrush. Eyes: Anicteric. The extraocular muscle movements are normal. Lungs: Good A/E to auscultation bilaterally. There are no wheezes. Heart: Regular rate and rhythm Abdominal exam: Soft and nontender with normal bowel sounds. Musculoskeletal: No costovertebral angle tenderness bilaterally. Extremities: Warm to touch with trace leg edema. There is no cyanosis. Skin: There are no rashes, petechiae, or ecchymosis. Neurological: Awake, alert, and oriented to time, place, and person. Psychiatric: The patient s behavior is normal. Lab Results Component Value Date BUN 116 (H) 12/26/2019 EGFR 13 (L) 12/26/2019 NA 134 (L) 12/26/2019 K 5.0 (H) 12/26/2019 CL 103 12/26/2019 CO2 22 (L) 12/26/2019 PHOS 5.2 (H) 12/26/2019 MG 2.5 (H) 12/25/2019 HGB 9.0 (L) 12/24/2019 PTH 72.57 (A) 04/01/2019 I/O last 3 completed shifts: In: 775 [P.O.:450; I.V.:325] Out: 550 [Urine:550] No intake/output data recorded. Assessment/Recommendations: Mr. Guzmán is a 89 y.o. male patient with stage III KATI (acute kidney injury), that is i n the setting of hypotension, anemia ( drop HB from 9 to 7 ) on CKD III. KATI ATN Nonoliguric No emergent indication for renal placement therapy Cre plateauied Optimize blood pressure to keep mean arterial pressure greater than 70, has improved and st abilized in the last 24 hrs Renal ultrasound reviewed noted to have small kidneys and a very thin cortex consistent wit h advanced kidney disease Avoid nephrotoxins Renal diet with 2 g potassium restricted diet Strict I's and O's Hyperkalemia Change diet to 2 g K a day Anemia keep hemoglobin greater than 7 Please rule out ongoing GI bleed, dispassionately high BUN Metabolic acidosis I will order bicarb amps again today Hypoalbuminemia Improved DC Albumin boluses Bone mineral disease Improved with phosphorus restricted diet Has sec HPTH, I will check Vit D 25 level. I discussed with the primary team the case at the time of this encounter. I spent 35 minutes today greater than 50% was in counseling or coordinating care Hayley Tapia MD, FACP Regino Montague MD - 12/25/2019 9:02 PM PDT Service: Hospitalist Progress Note Hospital Day: LOS: 4 days Post-Op Day: Day of Surgery Procedure: Procedure(s) (LRB): NAILING IM BETSY FEMUR - GAMMA NAIL (Right) SUBJECTIVE This is a 89-year-old male with history of heart block for which he has a [employer] right ventricular pacemaker follows up with Dr. Thompson, presented to the ED with ground-leve l mechanical fall ending up with a right hip fracture for which he underwent surgery. Posto p, patient also ended up with acute kidney injury not responding to IV hydration. Renal ult rasound showed the following: IMPRESSION: 1. Negative for hydronephrosis. 2. Renal cortical thinning to likely resent medical renal disease. 3. Renal cysts. 4. Tiny amount of free fluid within the pelvis that is nonspecific Also patient started becoming a bit lethargic with a moist cough suspicion for pneumonia. Coronavirus 19 test was negative. Pro-calcitonin was elevated and hence patient was empiric ally started on Zosyn suspecting a possible healthcare associated pneumonia. Urinalysis did not show any signs of infection. Although renal function seems to be worsening, nephrology believes this is mostly secondary to ATN. IV fluids have been held. Antihypertensives was also held because of low blood pressures. A chest x-ray was done which showed the following: IMPRESSION: Mild bilateral interstitial opacities consistent with pulmonary edema or atypical pneumonia. Small left pleural effusion. ABG with a lactic acid level was drawn which showed the following: Lactic acid 1.6 PH of 7.38, PCO2 33, PO2 71, bicarb 20, pulse oximetry 94% on room air. Pro-calcitonin positive at 0.69. Today, patient appears to be more awake and doing better. Blood pressure has stabilized. Remains on Eliquis for anticoagulation which he had been on previously. Renal function has been worsening and nephrology has been following the patient. Patient sees Dr. Kalie oleary. Scheduled Medications acetaminophen 1,000 mg Oral 3 times per day albumin 25 g Intravenous Q6H allopurinol 100 mg Oral Daily apixaban 2.5 mg Oral BID ascorbic acid 500 mg Oral Daily ferrous sulfate 325 mg Oral Every Other Day insulin lispro 0-12 Units Subcutaneous TID piperacillin-tazobactam (ZOSYN) IVPB (custom doses) 3.375 g Intravenous Q12H pravastatin 40 mg Oral Nightly sodium bicarbonate 100 mEq Intravenous Once terazosin 10 mg Oral Daily with dinner Continuous Infusions dextrose 10% OBJECTIVE Vital Signs: Vitals with Comments 12/25/2019 12/25/2019 12/25/2019 12/25/2019 SYSTOLIC 119 102 134 126 DIASTOLIC 57 66 60 58 BP Comments - - - - Pulse 60 68 61 60 Temp 97.8 - 98 98.1 Resp 16 - 16 16 Weight - - - - Height - - - - SPO2 94 - 94 93 BMI - - - - Pain Score - - - - Pain Loc - - - - Patient is awake, alert, oriented to time, place and person Skin: Warm and supple Neck: No JVD Chest: Normal vesicular breath sounds, good air entry bilaterally CVS: S1S2 audible, no murmurs heard, mild crackles noted bilaterally. Abdomen: Soft, non tender, normal bowel sounds, no organomegaly Extremities: No pedal edema, clubbing or cyanosis Neurologic examination: right hemiparesis with right facial droop which is baseline. Back examination: No CVA tenderness, no spinal tenderness Lee catheter was inserted for accurate intake and output monitoring. REVIEW OF SYSTEMS: denies any chest pain, shortness of breath, nausea, vomiting, diarrhea o r dysuria. DATA CBC: Lab Results Component Value Date WBC 9.17 12/24/2019 RBC 2.77 (L) 12/24/2019 RBC 2.74 (A) 04/01/2019 HGB 9.0 (L) 12/24/2019 HCT 28.1 (L) 12/24/2019 HCT 21 (LL) 12/22/2019 MCV 101.4 (H) 12/24/2019 PLT 75 (L) 12/24/2019 BMP: Lab Results Component Value Date NA 134 (L) 12/25/2019 K 5.1 (H) 12/25/2019 CL 103 12/25/2019 CO2 22 (L) 12/25/2019 BUN 107 (H) 12/25/2019 LABCREA 1.68 (A) 04/01/2019 CREA 4.4 (H) 12/25/2019 EGFR 13 (L) 12/25/2019 GLU 103 (H) 12/25/2019 MG/PHOS: Lab Results Component Value Date MG 2.5 (H) 12/25/2019 PHOS 6.4 (H) 12/25/2019 Echocardiogram done in September 2019 showed the EF of 55-60% ASSESSMENT & PLAN Principal problem: Traumatic right hip fracture with acute blood loss anemia postop requiring 2 units of PRBC transfusion: Status post surgery. Orthopedics on board. PT OT consulted. On Eliquis. Hemo globin to be monitored. As of now is stable. Secondary diagnoses: History of paroxysmal atrial fibrillation status post pacemaker placement: Telemetry advise d. Coreg held because of soft blood pressures. Eliquis to be continued.. Patient sees Dr. Thompson. Thrombocytopenia: Continue to monitor. Hyperkalemia: Resolved. History of stroke: Patient on Eliquis and statin. Hypertension with BPH: Continue prazosin. Hold Coreg. Insulin sliding scale for diabetes. Because of her acute kidney injury, patient cannot rec eive any ACEI/ARB. Continue with Eliquis and statin. Allopurinol for gout. Acute kidney injury on chronic kidney disease stage III with mild hyperkalemia: baseline cr eatinine around 1.6-1.7. IV hydration held as recommended by nephrology.patient sees Dr. Jonna fuentes. No lactic acidosis noted. No bladder or bowel obstruction noted. Patient has an indwe lling Lee catheter for accurate intake and output monitoring. Healthcare associated pneumonia: Patient has been on IV Zosyn with improvement in clinical status. Blood cultures to be followed. Disposition: Yet to be seen how he does with the current management. Inpatient rehab consu lted. Spoke with Dr. Huerta and the at phone number [phone] Code Status: Full Code Regino Greene MD 12/25/2019 9:02 PM Marycarmen Park ARNP - 12/25/2019 1:01 PM PDT . ORTHOPEDIC SURGERY PROGRESS NOTE Patient Name: Andres Guzmán Patient : 1930 Gender: male Date of admission: 12/21/2019 Post-operative day: 3 Status post Procedure(s) (LRB): NAILING IM BETSY FEMUR - GAMMA NAIL (Right) Assessment and Plan The patient chart and medications were reviewed in detail and the patient was seen and exam ined. No anticipated change in admission status. Disposition: Plan to discharge Monday, to [facility], once medically stable a nd cleared by PT/OT. Pain Acute post-operative pain. Pain is adequately controlled on current pain regimen. Continue current pain medications. PT/OT: Mobilize with PT/OT: weight bear as tolerated and mobility precautions as ordered DVT/PE prophylaxis: Continue Eliquis per order, SCDs, early mobilization. Bowel Care: Continue stool softeners and laxatives per order, mobilization, encourage fluid s. Active comorbid conditions include: - dysrhythmias - CHF - hypertension - pacemaker - PVD - endocrine problem - diabetes; type 2; controlled (Hgb A1C < 6.5); without complications - GERD - CVA - anemia - Drugs/Alcohol/Tobacco - tobacco use Special Issues *Acute blood loss anemia due to surgical/ post-surgical blood loss and low baseline H&H pre operatively. Labs on 12/24/2019: Hemoglobin 9.0 g/dL; Hematocrit 28.1 %; Treatment plan: blood transfusion and lab follow up *Acute kidney injury: rise in serum creatinine, evidenced by creatinine elevation on 12/25/19 20: Creatinine 4.4 mg/dL. Intake/Output Summary (Last 24 hours) at 12/25/2019 1303 Last data filed at 12/25/2019 0300 Gross per 24 hour Intake 812 ml Output 700 ml Net 112 ml . Treatment plan: intravenous fluid therapy, lab follow-up and treatment per hospitalist and chainstitch elastic attacher. *Blood pressure: hypotensive; See VS for BP trending. Treatment plan: treatment per hospit alist and chainstitch elastic attacher *Hospital acquired pneumonia - on IV Zosyn, treatment per hospitalist. *Kenisha-incision blisters and tape adhesion injuries: see wound RN note for treatment Subjective No chest pain, no shortness of breath, no abdominal pain, no nausea or vomiting, patient st ates he is feeling a little better today, but is still very drowsy, continues to have dizzin ess with standing. Objective Exam A&Ox3. Appears comfortable. Color is better today. Surgical dressing placed by wound RN has a small spot of yellow drainage, otherwise CDI. Ed celia around the site, soft to palpation. No calf tenderness to compression. Sensation is intact to light touch, motor intact, brisk capillary refill. Vital Signs Vitals: 12/25/19 1132 BP: 119/57 Pulse: 60 Resp: 16 Temp: 36.6 C (97.8 F) Min/Max Temp past 24 hours: Temp Av.8 C (98.3 F) Min: 36.4 C (97.6 F) Max: 37.1 C (98.8 F) Labs Recent Results (from the past 24 hour(s)) Coronavirus (COVID-19) NAAT Result Value Ref Range SARS-CoV-2, YOU (COVID-19) NEGATIVE NEG Blood gas, Arterial Result Value Ref Range FiO2, POC 21 % pH, Arterial, POC 7.380 7.350 - 7.450 pCO2, Arterial 33 (L) 35 - 45 mmHg pO2, Arterial 71 (L) 80 - 105 mmHg HCO3, Arterial 20 (L) 22 - 26 mmol/L TCO2, Arterial, POC 21 (L) 23 - 27 mEq/L POC Base Deficit mmol/L 5 (H) 0.0 - 2.0 mmol/L SO2, Arterial, POC 94 (L) 95 - 98 % ECG 12 lead Result Value Ref Range VENTRICULAR RATE EKG 60 BPM ATRIAL RATE 54 BPM QRS DURATION 176 ms Q-T INTERVAL 498 ms Q-T INTERVAL (CORRECTED) 498 ms QRS AXIS 123 degrees T AXIS -3 degrees INTERPRETATION TEXT Ventricular-paced rhythm Abnormal ECG When compared with ECG of 11-FEB-2019 14:35, Previous ECG has undetermined rhythm, needs review Confirmed by YANIV ROONEY ([id number]) on 12/24/2019 6:00:29 PM POC Glucose Result Value Ref Range Glucose, POC 136 (H) 65 - 99 mg/dL POC Glucose Result Value Ref Range Glucose, POC 149 (H) 65 - 99 mg/dL Protein/Creatinine Ratio, Urine Result Value Ref Range PRO/CREA RATIO,URINE 0.942 Creatinine, Urine, Random Result Value Ref Range Creatinine, random urine 139.0 mg/dL Protein, Urine, Random Result Value Ref Range Protein, Urine 131 mg/dL Magnesium Result Value Ref Range Magnesium 2.5 (H) 1.7 - 2.4 mg/dL Lactate Dehydrogenase Result Value Ref Range LDH TOTAL 154 120 - 246 U/L CK Total Result Value Ref Range CK TOTAL 100 55 - 400 U/L Sedimentation Rate Result Value Ref Range ESR 6 0 - 20 mm/Hr Renal Function Panel Result Value Ref Range Na 134 (L) 135 - 145 mmol/L K 5.1 (H) 3.5 - 4.9 mmol/L Cl 103 99 - 109 mmol/L CO2 22 (L) 23 - 32 mmol/L Anion Gap 14 5 - 20 mmol/L Glucose 103 (H) 65 - 99 mg/dL BUN 107 (H) 8 - 25 mg/dL Creatinine 4.4 (H) 0.70 - 1.30 mg/dL Calcium 8.1 (L) 8.5 - 10.5 mg/dL Albumin 2.7 (L) 3.3 - 4.8 g/dL Phosphorus 6.4 (H) 2.3 - 4.8 mg/dL Estimated GFR 13 (L) >60 mL/min/1.73m2 POC Glucose Result Value Ref Range Glucose, POC 136 (H) 65 - 99 mg/dL POC Glucose Result Value Ref Range Glucose, POC 148 (H) 65 - 99 mg/dL Patient has been updated on their condition and plan for treatment. Questions have been ans wered to their satisfaction. Further management to be dictated by patient's clinical conditi on, in coordination with multidisciplinary team. This case discussed with Dr. Baez, Dr. Greene, RN and CM. Electronically signed by: ENEDINA Ramos, 12/25/2019 1:[address] - 12/25/2019 10:1 0 AM PDT NUTRITION NOTE Summary Reason For Assessment: per organizational policy([employer] for geriatric surgery. ) Pt is POD # 3 R hip gamma nail, has hx CHF, DM2, acute on chronic CKD - 3. Visited pt this morning who reports his appetite is doing much better today feels hungry. Diet Experience Self-Selected Diet: Pt reports at baseline he eats 3 small meals a day. Fluid/Beverage Intake Oral Fluids Amount: Ad bessy. Food Intake Type of Food/Meals: Current active diet order is: Diet Diet consistent carb; 60 gm CARB/Meal; Effective Now Amount of Food: Per charting pt eat 10% of meals prior to today. At time of visit pt was ea ting breakfast ordered, cream of wheat, milk, and V8 casi. Nourishments: Pt declined all nutrition supplements at this time. Nutritionally Relevant Medications Vit C, iron, humalog Anthropometrics Pt reports stable wt user acceptance tester. Current Weight: 63.5 kg (140 lb) Admit Weight: 63.5 kg (140 lb) Biochemical Data, Medical Test, and Procedures Recent Labs 12/25/1942412/25/19421 NA 134* -- K 5.1* -- GLU 103* -- BUN 107* -- CREA 4.4* -- PHOS 6.4* -- MG -- 2.5* Estimated Energy Needs Energy Calorie Requirements: 1587 - 1905 kcal/day, 25 - 30 kcal/kg/admit wt 63.5 kg Estimated Protein Needs Range Gm Protein (gm): 76 - 95 g protein/day, 1.2-1.5 g pro/kg/admit wt 63.5 kg Nutrition Diagnosis Inadequate oral intake related to inability to consume sufficient PO as evidenced by post op status, intake < 75% of meals. Recommendations Continue diet as ordered. If indicated by labs add renal diet restrictions. Encourage hig h protein, nutrient dense foods to promote healing. Oral supplements can be made available i f desired by pt. Nutritional Risk Required Follow Up: 5 days(12/29 M) Jerry Castaneda RD,CD 12/25/2019 10:10 AM Regino Montague MD - 12/24/2019 7:10 PM PDT Service: Hospitalist Progress Note Hospital Day: LOS: 3 days Post-Op Day: Day of Surgery Procedure: Procedure(s) (LRB): NAILING IM BETSY FEMUR - GAMMA NAIL (Right) SUBJECTIVE Patient was found to be a bit lethargic today. Overnight he had started showing signs of orthostatic hypotension and was hypotensive this morning.. Renal function has worsened as w ell. A renal ultrasound was done which showed the following: IMPRESSION: 1. Negative for hydronephrosis. 2. Renal cortical thinning to likely resent medical renal disease. 3. Renal cysts. 4. Tiny amount of free fluid within the pelvis that is nonspecific. As a part of the workup to rule out any sepsis, blood cultures were drawn. Urinalysis was done which did not show signs of urinary tract infection. Only 1+ bacteria was noted. A cov ert 19 test was also done which came back negative. Patient had been having some moist coug h. A chest x-ray was done which showed the following: IMPRESSION: Mild bilateral interstitial opacities consistent with pulmonary edema or atypical pneumonia. Small left pleural effusion. ABG with a lactic acid level was drawn which showed the following: Lactic acid 1.6 PH of 7.38, PCO2 33, PO2 71, bicarb 20, pulse oximetry 94% on room air. Pro-calcitonin positive at 0.69. Scheduled Medications acetaminophen 1,000 mg Oral 3 times per day allopurinol 100 mg Oral Daily apixaban 2.5 mg Oral BID ascorbic acid 500 mg Oral Daily ferrous sulfate 325 mg Oral Every Other Day insulin lispro 0-12 Units Subcutaneous TID WC piperacillin-tazobactam (ZOSYN) IVPB (custom doses) 3.375 g Intravenous Q12H pravastatin 40 mg Oral Nightly terazosin 10 mg Oral Daily with dinner Continuous Infusions dextrose 10% OBJECTIVE Vital Signs: Vitals with Comments 12/24/2019 12/24/2019 12/24/2019 12/24/2019 SYSTOLIC (No Data) 108 87 103 DIASTOLIC (No Data) 54 51 55 BP Comments 120/56 - - - Pulse 61 - 60 60 Temp 97.8 - 97.5 97.6 Resp 18 - 16 18 Weight - - - - Height - - - - SPO2 92 - 90 93 BMI - - - - Pain Score - - - - Pain Loc - - - - Patient is awake, alert, oriented to time, place and person, appears to be a bit lethargic. Skin: Warm and supple Neck: No JVD Chest: Normal vesicular breath sounds, good air entry bilaterally CVS: S1S2 audible, no murmurs heard, mild crackles noted bilaterally. Abdomen: Soft, non tender, normal bowel sounds, no organomegaly Extremities: No pedal edema, clubbing or cyanosis Neurologic examination: right hemiparesis with right facial droop which is baseline. Back examination: No CVA tenderness, no spinal tenderness Lee catheter was inserted for accurate intake and output monitoring. REVIEW OF SYSTEMS: denies any chest pain, shortness of breath, nausea, vomiting, diarrhea o r dysuria. DATA CBC: Lab Results Component Value Date WBC 9.17 12/24/2019 RBC 2.77 (L) 12/24/2019 RBC 2.74 (A) 04/01/2019 HGB 9.0 (L) 12/24/2019 HCT 28.1 (L) 12/24/2019 HCT 21 (LL) 12/22/2019 MCV 101.4 (H) 12/24/2019 PLT 75 (L) 12/24/2019 BMP: Lab Results Component Value Date NA 136 12/24/2019 K 5.2 (H) 12/24/2019 CL 105 12/24/2019 CO2 21 (L) 12/24/2019 BUN 90 (H) 12/24/2019 LABCREA 1.68 (A) 04/01/2019 CREA 3.7 (H) 12/24/2019 EGFR 16 (L) 12/24/2019 GLU 120 (H) 12/24/2019 MG/PHOS: Lab Results Component Value Date MG 2.1 12/23/2019 PHOS 4.6 12/23/2019 Echocardiogram done in September 2019 showed the EF of 55-60% ASSESSMENT & PLAN Principal problem: Traumatic right hip fracture with acute blood loss anemia postop requiring 2 units of PRBC transfusion: Status post surgery. Orthopedics on board. PT OT consulted. On Eliquis. Hemo globin to be monitored. As of now is stable. Secondary diagnoses: History of paroxysmal atrial fibrillation status post pacemaker placement: Telemetry advise roseanne Sawant held because of soft blood pressures. Eliquis to be continued.. Patient sees Dr. Thompson. Thrombocytopenia: Continue to monitor. Hyperkalemia: Resolved. History of stroke: Patient on Eliquis and statin. Hypertension with BPH: Continue prazosin. Hold Coreg. Insulin sliding scale for diabetes. Because of her acute kidney injury, patient cannot rec eive any ACEI/ARB. Continue with Eliquis and statin. Allopurinol for gout. Acute kidney injury on chronic kidney disease stage III with mild hyperkalemia: baseline cr eatinine around 1.6-1.7. IV hydration held as recommended by nephrology.patient sees Dr. Jonna fuentes. No lactic acidosis noted. No bladder or bowel obstruction noted. Patient has an indwe lling Lee catheter for accurate intake and output monitoring. Possibility of healthcare associated pneumonia: Patient will be started on IV Zosyn. Blood cultures will be followed. Disposition: Yet to be seen how he does with the current management. Inpatient rehab consu lted. Spoke with Dr. Huerta and the at phone number [phone] Code Status: Full Code Regino Greene MD 12/24/2019 7:10 PM Marycarmen Park ARNP - 12/24/2019 1:28 PM PDT . ORTHOPEDIC SURGERY PROGRESS NOTE Patient Name: Andres Guzmán Patient : 1930 Gender: male Date of admission: 12/21/2019 Post-operative day: 3 Status post Procedure(s) (LRB): NAILING IM BETSY FEMUR - GAMMA NAIL (Right) Assessment and Plan The patient chart and medications were reviewed in detail and the patient was seen and exam ined. No anticipated change in admission status. Disposition: Plan to discharge , to Inpatient Rehab, once medically stable and ajay red by PT/OT. Pain Acute post-operative pain. Pain is adequately controlled on current pain regimen. Continue to mobilize patient: pre-medicate 30-40 minutes prior to activity. Hold narcotic pain medications. PT/OT: Mobilize with PT/OT: weight bear as tolerated and mobility precautions as ordered DVT/PE prophylaxis: Continue Eliquis per order, SCDs, early mobilization. Bowel Care: Continue stool softeners and laxatives per order, mobilization, encourage fluid s. Active comorbid conditions include: - dysrhythmias - CHF - hypertension - pacemaker - PVD - endocrine problem - diabetes; type 2; controlled (Hgb A1C < 6.5); without complications - GERD - CVA - anemia - Drugs/Alcohol/Tobacco - tobacco use Special Issues *Acute blood loss anemia due to surgical/ post-surgical blood loss and low baseline H&H pre operatively. Labs on 12/24/2019: Hemoglobin 9.0 g/dL; Hematocrit 28.1 %; Treatment plan: lab f ollow up *Acute kidney injury: rise in serum creatinine, evidenced by creatinine elevation on 12/24/19 20: Creatinine 3.7 mg/dL. Intake/Output Summary (Last 24 hours) at 12/24/2019 1329 Last data filed at 12/24/2019 0303 Gross per 24 hour Intake 800 ml Output Net 800 ml . Treatment plan: intravenous fluid therapy, lab follow-up and further studies per hospit alist, nephrology consult per hospitalist (see orders). *Blood pressure: hypotensive; See VS for BP trending. Treatment plan: IVF, stop narcotics and BP meds, further management per hospitalist Subjective No chest pain, no shortness of breath, no abdominal pain, no nausea or vomiting, continues to c/o dizziness and lightheadedness with ambulation Objective Exam A&Ox3. Appears comfortable. Surgical dressings saturated with serous drainage, blisters under tape. New aquacel drsg ap plied by me. Moderate edema to the upper leg, soft to palpation. No calf tenderness to compression. Sensation is intact to light touch, motor intact, brisk capillary refill. Vital Signs Vitals: 12/24/19 1100 BP: (!) 87/51 Pulse: 60 Resp: 16 Temp: 36.4 C (97.5 F) Min/Max Temp past 24 hours: Temp Av.5 C (97.7 F) Min: 36.3 C (97.4 F) Max: 36.6 C (97.9 F) Labs Recent Results (from the past 24 hour(s)) POC Glucose Result Value Ref Range Glucose, POC 158 (H) 65 - 99 mg/dL POC Glucose Result Value Ref Range Glucose, POC 129 (H) 65 - 99 mg/dL POC Glucose Result Value Ref Range Glucose, POC 135 (H) 65 - 99 mg/dL Basic Metabolic Panel Result Value Ref Range Na 136 135 - 145 mmol/L K 5.2 (H) 3.5 - 4.9 mmol/L Cl 105 99 - 109 mmol/L CO2 21 (L) 23 - 32 mmol/L Anion Gap 15 5 - 20 mmol/L Glucose 120 (H) 65 - 99 mg/dL BUN 90 (H) 8 - 25 mg/dL Creatinine 3.7 (H) 0.70 - 1.30 mg/dL BUN/Creatinine Ratio 24 Calcium 8.8 8.5 - 10.5 mg/dL Estimated GFR 16 (L) >60 mL/min/1.73m2 CBC no Differential Result Value Ref Range WBC 9.17 3.80 - 11.00 K/uL RBC 2.77 (L) 4.20 - 5.70 M/uL Hemoglobin 9.0 (L) 13.2 - 17.0 g/dL Hematocrit 28.1 (L) 39.0 - 50.0 % MCV 101.4 (H) 80.0 - 100.0 fl MCH 32.5 27.0 - 34.0 pg MCHC 32.0 32.0 - 35.5 g/dL RDW-SD 54.7 (H) 37 - 53 fl Platelet Count 75 (L) 150 - 400 K/uL MPV 12.2 fl POC Glucose Result Value Ref Range Glucose, POC 147 (H) 65 - 99 mg/dL POC Glucose Result Value Ref Range Glucose, POC 143 (H) 65 - 99 mg/dL Procalcitonin Result Value Ref Range PROCALCITONIN 0.69 (H) <0.5 ng/mL Lactic Acid Result Value Ref Range Lactate, Serum 1.6 0.4 - 2.0 mmol/L Patient has been updated on their condition and plan for treatment. Questions have been ans wered to their satisfaction. Further management to be dictated by patient's clinical conditi on, in coordination with multidisciplinary team. This case discussed with Dr. Baez, Dr. Greene, RN and CM. Electronically signed by: ENEDINA Ramos, 12/24/2019 1:28 PM Regino Montague MD - 12/23/2019 10:03 PM PDT Service: Hospitalist Progress Note Hospital Day: LOS: 2 days Post-Op Day: Day of Surgery Procedure: Procedure(s) (LRB): NAILING IM BETSY FEMUR - GAMMA NAIL (Right) SUBJECTIVE Evaluated patient at bedside. Patient remains on telemetry. Vitals are stable. Remains on IV fluids but renal function has not changed. After a curbside discussion with nephroldeon cruz, decided on holding off the IV hydration for today with accurate intake output monitoring over night. If renal function still worsening or remains for tomorrow, may request nephrol ogy consult. Physical therapy has been on board. Scheduled Medications acetaminophen 1,000 mg Oral 3 times per day allopurinol 100 mg Oral Daily apixaban 2.5 mg Oral BID ascorbic acid 500 mg Oral Daily carvedilol 25 mg Oral BID WC ferrous sulfate 325 mg Oral Every Other Day insulin lispro 0-12 Units Subcutaneous TID WC pravastatin 40 mg Oral Nightly terazosin 10 mg Oral Daily with dinner traMADol 50 mg Oral 4 times per day Continuous Infusions dextrose 10% OBJECTIVE Vital Signs: Vitals with Comments 12/23/2019 12/23/2019 12/23/2019 12/23/2019 SYSTOLIC 110 105 101 101 DIASTOLIC 54 54 55 50 Pulse 60 60 60 65 Temp 97.8 97.9 - 97.8 Resp 18 18 - 18 Weight - - - - Height - - - - SPO2 93 91 - 91 BMI - - - - Pain Score - - - - Pain Loc - - - - Patient is awake, alert, oriented to time, place and person Skin: Warm and supple Neck: No JVD Chest: Normal vesicular breath sounds, good air entry bilaterally CVS: S1S2 audible, no murmurs heard Abdomen: Soft, non tender, normal bowel sounds, no organomegaly Extremities: No pedal edema, clubbing or cyanosis Neurologic examination: right hemiparesis with right facial droop which is baseline. Back examination: No CVA tenderness, no spinal tenderness No Lee catheter. REVIEW OF SYSTEMS: denies any chest pain, shortness of breath, nausea, vomiting, diarrhea o r dysuria. DATA CBC: Lab Results Component Value Date WBC 7.83 12/23/2019 RBC 2.70 (L) 12/23/2019 RBC 2.74 (A) 04/01/2019 HGB 8.8 (L) 12/23/2019 HCT 26.6 (L) 12/23/2019 HCT 21 (LL) 12/22/2019 MCV 98.5 12/23/2019 PLT 67 (L) 12/23/2019 BMP: Lab Results Component Value Date NA 138 12/23/2019 K 4.7 12/23/2019 CL 106 12/23/2019 CO2 22 (L) 12/23/2019 BUN 65 (H) 12/23/2019 LABCREA 1.68 (A) 04/01/2019 CREA 2.70 (H) 12/23/2019 EGFR 22 (L) 12/23/2019 GLU 127 (H) 12/23/2019 MG/PHOS: Lab Results Component Value Date MG 2.1 12/23/2019 PHOS 4.6 12/23/2019 Echocardiogram done in September 2019 showed the EF of 55-60% ASSESSMENT & PLAN Principal problem: Traumatic right hip fracture with acute blood loss anemia postop requiring 2 units of PRBC transfusion: Status post surgery. Orthopedics on board. PT OT consulted. On Eliquis. Hemo globin to be monitored. As of now is stable. Secondary diagnoses: History of paroxysmal atrial fibrillation status post pacemaker placement: Telemetry advise d. Continue with Coreg and Eliquis. Patient sees Dr. Thompson. Thrombocytopenia: Continue to monitor. Hyperkalemia: Resolved. History of stroke: Patient on Eliquis and statin. Hypertension with BPH: Continue prazosin. Also on carvedilol. Insulin sliding scale for diabetes. Because of her acute kidney injury, patient cannot rec eive any ACEI/CRP. Continue with Eliquis and statin. Allopurinol for gout. Acute kidney injury on chronic kidney disease stage III: baseline creatinine around 1.6-1.7 . IV hydration held as recommended by nephrology. Will consult formally tomorrow if renal fu nction still poor or worsens. Patient sees Dr. Jade. Disposition: Yet to be seen how he does with the current management. Patient did not requ est any conversation with family members today. Inpatient director of rehabilitation and wellness. Code Status: Full Code Regino Greene MD 12/23/2019 10:03 PM Marycarmen Park ARNP - 12/23/2019 12:27 PM PDT . ORTHOPEDIC SURGERY PROGRESS NOTE Patient Name: Andres Guzmán Patient : [id number] Gender: male Date of admission: 12/21/2019 Post-operative day: 1 Status post Procedure(s) (LRB): NAILING IM BETSY FEMUR - GAMMA NAIL (Right) Assessment and Plan The patient chart and medications were reviewed in detail and the patient was seen and exam ined. No anticipated change in admission status. Disposition: Plan to discharge Monday, to december require post acute rehab, PT eval pending, once medically stable and cleared by PT/OT. Pain Acute post-operative pain. Pain is not adequately controlled on current pain regimen. Continue to mobilize patient: pre-medicate 30-40 minutes prior to activity. Add non-narcotic medication. Change short acting analgesic. PT/OT: Mobilize with PT/OT: weight bear as tolerated and mobility precautions as ordered DVT/PE prophylaxis: Continue Eliquis per order, SCDs, early mobilization. Bowel Care: Continue stool softeners and laxatives per order, mobilization, encourage fluid s. Active comorbid conditions include: - dysrhythmias - CHF - hypertension - pacemaker - PVD - endocrine problem - diabetes; type 2; controlled (Hgb A1C < 6.5); without complications - GERD - CVA - anemia - Drugs/Alcohol/Tobacco - tobacco use Special Issues *Acute blood loss anemia due to surgical/ post-surgical blood loss. Labs on 12/23/2019: Hemog lobin 8.8 g/dL; Hematocrit 26.6 %; Treatment plan: lab follow up *Acute kidney injury: rise in serum creatinine, evidenced by creatinine elevation on 12/23/19 20: Creatinine 2.70 mg/dL. Intake/Output Summary (Last 24 hours) at 12/23/2019 1228 Last data filed at 12/23/2019 0705 Gross per 24 hour Intake 2854 ml Output 300 ml Net 2554 ml . Treatment plan: intravenous fluid therapy and lab follow-up. Subjective No chest pain, no shortness of breath, no abdominal pain, no nausea or vomiting Objective Exam A&Ox3. Appears comfortable. Surgical dressings clean, dry, and intact. No calf tenderness to compression. Sensation is intact to light touch, motor intact, brisk capillary refill. Vital Signs Vitals: 12/23/19 0719 BP: 123/60 Pulse: 60 Resp: 18 Temp: 36.6 C (97.9 F) Min/Max Temp past 24 hours: Temp Av.7 C (98 F) Min: 36.6 C (97.9 F) Max: 36 .7 C (98.1 F) Labs Recent Results (from the past 24 hour(s)) POC Glucose Result Value Ref Range Glucose, POC 153 (H) 65 - 99 mg/dL POC Glucose Result Value Ref Range Glucose, POC 129 (H) 65 - 99 mg/dL Hematocrit Result Value Ref Range Hematocrit 27.4 (L) 39.0 - 50.0 % Hemoglobin Result Value Ref Range Hemoglobin 9.1 (L) 13.2 - 17.0 g/dL CBC no Differential Result Value Ref Range WBC 7.83 3.80 - 11.00 K/uL RBC 2.70 (L) 4.20 - 5.70 M/uL Hemoglobin 8.8 (L) 13.2 - 17.0 g/dL Hematocrit 26.6 (L) 39.0 - 50.0 % MCV 98.5 80.0 - 100.0 fl MCH 32.6 27.0 - 34.0 pg MCHC 33.1 32.0 - 35.5 g/dL RDW-SD 53.6 (H) 37 - 53 fl Platelet Count 67 (L) 150 - 400 K/uL MPV 10.6 fl Magnesium Result Value Ref Range Magnesium 2.1 1.7 - 2.4 mg/dL Phosphorus Result Value Ref Range Phosphorus 4.6 2.3 - 4.8 mg/dL Basic Metabolic Panel Result Value Ref Range Na 138 135 - 145 mmol/L K 4.7 3.5 - 4.9 mmol/L Cl 106 99 - 109 mmol/L CO2 22 (L) 23 - 32 mmol/L Anion Gap 15 5 - 20 mmol/L Glucose 127 (H) 65 - 99 mg/dL BUN 65 (H) 8 - 25 mg/dL Creatinine 2.70 (H) 0.70 - 1.30 mg/dL BUN/Creatinine Ratio 24 Calcium 8.3 (L) 8.5 - 10.5 mg/dL Estimated GFR 22 (L) >60 mL/min/1.73m2 POC Glucose Result Value Ref Range Glucose, POC 122 (H) 65 - 99 mg/dL Patient has been updated on their condition and plan for treatment. Questions have been ans wered to their satisfaction. Further management to be dictated by patient's clinical conditi on, in coordination with multidisciplinary team. This case discussed with Dr. Baez, Dr. Greene, RN and CM. Electronically signed by: ENEDINA Ramos, 12/23/2019 12:27 PM Regino Montague MD - 12/22/2019 10:0 0 PM PDT Service: Hospitalist Progress Note Hospital Day: LOS: 1 day Post-Op Day: Day of Surgery Procedure: Procedure(s) (LRB): NAILING IM BETSY FEMUR - GAMMA NAIL (Right) SUBJECTIVE Evaluated patient at bedside. Postop. Patient resting comfortably. IV hydration will b e advised for acute kidney injury on chronic kidney disease stage III. Patient on telemetry . Status post pacemaker placement. Scheduled Medications allopurinol 100 mg Oral Daily [START ON 12/23/2019] apixaban 2.5 mg Oral BID ascorbic acid 500 mg Oral Daily carvedilol 25 mg Oral BID WC ceFAZolin 1 g Intravenous 2 times per day ferrous sulfate 325 mg Oral Every Other Day insulin lispro 0-12 Units Subcutaneous TID WC pravastatin 40 mg Oral Nightly terazosin 10 mg Oral Daily with dinner Continuous Infusions dextrose 10% sodium chloride 0.9% 100 mL/hr at 12/22/19 1729 OBJECTIVE Vital Signs: Vitals with Comments 12/22/2019 12/22/2019 12/22/2019 12/22/2019 SYSTOLIC 134 135 140 130 DIASTOLIC 62 61 66 60 Pulse 60 62 62 60 Temp 98.1 98 98.1 97.9 Resp 16 16 16 17 Weight - - - - Height - - - - SPO2 100 100 99 99 BMI - - - - Pain Score - - - - Pain Loc - - - - Patient is awake, alert, oriented to time, place and person Skin: Warm and supple Neck: No JVD Chest: Normal vesicular breath sounds, good air entry bilaterally CVS: S1S2 audible, no murmurs heard Abdomen: Soft, non tender, normal bowel sounds, no organomegaly Extremities: No pedal edema, clubbing or cyanosis Neurologic examination: right hemiparesis with right facial droop which is baseline. Back examination: No CVA tenderness, no spinal tenderness No Lee catheter. REVIEW OF SYSTEMS: denies any chest pain, shortness of breath, nausea, vomiting, diarrhea o r dysuria. DATA CBC: Lab Results Component Value Date WBC 8.59 12/22/2019 RBC 2.68 (L) 12/22/2019 RBC 2.74 (A) 04/01/2019 HGB 9.1 (L) 12/22/2019 HCT 27.4 (L) 12/22/2019 HCT 21 (LL) 12/22/2019 MCV 100.0 12/22/2019 PLT 98 (L) 12/22/2019 BMP: Lab Results Component Value Date NA 137 12/22/2019 K 5.7 (H) 12/22/2019 CL 104 12/22/2019 CO2 23 12/22/2019 BUN 90 (H) 12/22/2019 LABCREA 1.68 (A) 04/01/2019 CREA 2.8 (H) 12/22/2019 EGFR 22 (L) 12/22/2019 GLU 145 (H) 12/22/2019 MG/PHOS: Lab Results Component Value Date MG 2.6 (H) 12/22/2019 Echocardiogram done in September 2019 showed the EF of 55-60% ASSESSMENT & PLAN Principal problem: Traumatic right hip fracture: Status post surgery. Orthopedics on board. PT OT consulted. Started on Eliquis. Hemoglobin will be monitored. Secondary diagnoses: History of paroxysmal atrial fibrillation status post pacemaker placement: Telemetry advise d. Continue with Coreg and Eliquis. Patient sees Dr. Thompson. Thrombocytopenia: Continue to monitor. History of stroke: Patient on Eliquis and statin. Hypertension with BPH: Continue prazosin. Also on carvedilol. Insulin sliding scale for diabetes. Because of her acute kidney injury, patient cannot rec eive any ACEI/CRP. Continue with Eliquis and statin. Allopurinol for gout. Acute kidney injury on chronic kidney disease stage III: baseline creatinine around 1.6-1.7 . We will continue with IV hydration and monitor for electrolytes and renal function. Imani ent sees Dr. Jade. Disposition: Yet to be seen how he does with the current management. Patient did not requ est any conversation with family members today. Code Status: Full Code Regino Greene MD 12/22/2019 10:00 PM allito Wilson RN - 12/22/2019 5:35 PM PDTEnd of shift chart check completeElectronica lly signed by Miya Wilson RN at 12/22/2019 5:35 PM PDTBerKetan akers V PT - 12/22/2019 1:14 PM PDTFormatting of this note might be different from the origi nal. 12/22/19 1314 PT Visit Summary PT Visit Type Missed Visit (treatment on hold) Next Visit Information 12/21; PT eval PT Visit Summary Pt's H&H continuing to decrease, now 7.1, 21, will hold until this has res olved ndria Alston RPH - 12/22/2019 12:36 PM PDTClinical Pharmacy Note: Renal Monitoring Serum creatinine: 2.8 mg/dL (H) 12/22/19 0526 Estimated creatinine clearance: 16 mL/min (A) Cefazolin modified from 2 g Q8H to 1 g IV Q12H for two doses for surgical prophylaxis to ac commodate current renal function. No other changes made at this time. Pharmacy will continue to monitor renal function and a djust medications as appropriate. Andria Alston PharmD 12/22/2019 12:35 PM Sendy Hemphill RN - 12/22/2019 8:30 AM PDTPt K+ 5.8 anesthesia aware, order of 5 units regular insulin admini stered at 0825 followed by a full amp. Of D50. IV fluid changed to NS, anesthesia provider i nstilled ART line in pre op. 0845 I stat re ran K+ 4.7 documented in this encounter Plan of Treatment +--------+ + + + + | Date | Type | Specialty | Care Team | Description | +--------+ + + + + | 01/29/ | Office | Nephrology | Isiah Jade MD | | | 2019 | Visit | | [address] [facility] [place] | | | | | | [address] | | | | | | [address] | | | | | | | | +--------+ + + + + | 02/05/ | Office | Cardiology | Dina Sanchez DO | | | 2019 | Visit | | [address] | | | | | | [place] | | | | | | [address] | | | | | | | | +--------+ + + + + | 02/09/ | Procedure | Cardiology | | | | 2019 | visit | | | | +--------+ + + + + | 02/17/ | Office | Orthopedic Surgery | SashaMelquiades | | | 2019 | Visit | | DO [address] | | | | | | [place], | | | | | | [place] [address] | | | | | | [phone] | | | | | | | | +--------+ + + + + | 03/09/ | Office | Nephrology | Isiah Jade MD | | | 2019 | Visit | | [address] [facility] | | | | | | [address] | | | | | | [address] | | | | | | | | +--------+ + + + + documented as of this encounter Procedures + +--------+ + + + | Procedure Name | Priori | Date/Time | Associated Diagnosis | Comments | | | ty | | | | + +--------+ + + + | POC GLUCOSE (NON | Routin | 01/01/2020 | | Results for this | | ORD) | e | 11:24 AM | | procedure are in the | | | | PDT | | results section. | + +--------+ + + + | POC GLUCOSE (NON | Routin | 01/01/2020 | | Results for this | | ORD) | e | 6:29 AM | | procedure are in the | | | | PDT | | results section. | + +--------+ + + + | CBC WITH | Routin | 01/01/2020 | | Results for this | | DIFFERENTIAL | e | 4:07 AM | | procedure are in the | | | | PDT | | results section. | + +--------+ + + + | BASIC METABOLIC | Routin | 01/01/2020 | | Results for this | | PANEL | e | 4:07 AM | | procedure are in the | | | | PDT | | results section. | + +--------+ + + + | POC GLUCOSE (NON | Routin | 12/31/2019 | | Results for this | | ORD) | e | 9:02 PM | | procedure are in the | | | | PDT | | results section. | + +--------+ + + + | POC GLUCOSE (NON | Routin | 12/31/2019 | | Results for this | | ORD) | e | 5:31 PM | | procedure are in the | | | | PDT | | results section. | + +--------+ + + + | POC GLUCOSE (NON | Routin | 12/31/2019 | | Results for this | | ORD) | e | 12:50 PM | | procedure are in the | | | | PDT | | results section. | + +--------+ + + + | POC GLUCOSE (NON | Routin | 12/31/2019 | | Results for this | | ORD) | e | 6:36 AM | | procedure are in the | | | | PDT | | results section. | + +--------+ + + + | CBC WITH | Routin | 12/31/2019 | | Results for this | | DIFFERENTIAL | e | 6:17 AM | | procedure are in the | | | | PDT | | results section. | + +--------+ + + + | BASIC METABOLIC | Routin | 12/31/2019 | | Results for this | | PANEL | e | 6:17 AM | | procedure are in the | | | | PDT | | results section. | + +--------+ + + + | POC GLUCOSE (NON | Routin | 12/30/2019 | | Results for this | | ORD) | e | 8:55 PM | | procedure are in the | | | | PDT | | results section. | + +--------+ + + + | POC GLUCOSE (NON | Routin | 12/30/2019 | | Results for this | | ORD) | e | 4:11 PM | | procedure are in the | | | | PDT | | results section. | + +--------+ + + + | POC GLUCOSE (NON | Routin | 12/30/2019 | | Results for this | | ORD) | e | 11:02 AM | | procedure are in the | | | | PDT | | results section. | + +--------+ + + + | BASIC METABOLIC | Add-On | 12/30/2019 | | Results for this | | PANEL | | 8:52 AM | | procedure are in the | | | | PDT | | results section. | + +--------+ + + + | POC GLUCOSE (NON | Routin | 12/30/2019 | | Results for this | | ORD) | e | 6:04 AM | | procedure are in the | | | | PDT | | results section. | + +--------+ + + + | CBC WITH | Routin | 12/30/2019 | | Results for this | | DIFFERENTIAL | e | 4:12 AM | | procedure are in the | | | | PDT | | results section. | + +--------+ + + + | POC GLUCOSE (NON | Routin | 12/29/2019 | | Results for this | | ORD) | e | 11:56 PM | | procedure are in the | | | | PDT | | results section. | + +--------+ + + + | HEMOGLOBIN AND | STAT | 12/29/2019 | | Results for this | | HEMATOCRIT | | 9:46 PM | | procedure are in the | | | | PDT | | results section. | + +--------+ + + + | POC GLUCOSE (NON | Routin | 12/29/2019 | | Results for this | | ORD) | e | 6:06 PM | | procedure are in the | | | | PDT | | results section. | + +--------+ + + + | HEMOGLOBIN AND | STAT | 12/29/2019 | | Results for this | | HEMATOCRIT | | 4:08 PM | | procedure are in the | | | | PDT | | results section. | + +--------+ + + + | POC GLUCOSE (NON | Routin | 12/29/2019 | | Results for this | | ORD) | e | 11:43 AM | | procedure are in the | | | | PDT | | results section. | + +--------+ + + + | POC GLUCOSE (NON | Routin | 12/29/2019 | | Results for this | | ORD) | e | 11:06 AM | | procedure are in the | | | | PDT | | results section. | + +--------+ + + + | RT EXTUBATION | Routin | 12/29/2019 | | | | | e | 10:29 AM | | | | | | PDT | | | + +--------+ + + + | SURGICAL PATHOLOGY | Routin | 12/29/2019 | Acute GI bleeding | Results for this | | EXAM | e | 9:20 AM | | procedure are in the | | | | PDT | | results section. | + +--------+ + + + | EGD | | 12/29/2019 | Acute GI bleeding | | | | | 8:51 AM | | | | | | PDT | | | + +--------+ + + + | *TERMED* NV UPPER GI | Routin | 12/29/2019 | | Results for this | | ENDOSCOPY,EXAM | e | 8:36 AM | | procedure are in the | | | | PDT | | results section. | + +--------+ + + + | HEMOGLOBIN AND | Routin | 12/29/2019 | | Results for this | | HEMATOCRIT | e | 6:53 AM | | procedure are in the | | | | PDT | | results section. | + +--------+ + + + | POC GLUCOSE (NON | Routin | 12/29/2019 | | Results for this | | ORD) | e | 6:06 AM | | procedure are in the | | | | PDT | | results section. | + +--------+ + + + | PROTIME INR | Routin | 12/29/2019 | | Results for this | | | e | 3:53 AM | | procedure are in the | | | | PDT | | results section. | + +--------+ + + + | CBC WITH | Routin | 12/29/2019 | | Results for this | | DIFFERENTIAL | e | 3:53 AM | | procedure are in the | | | | PDT | | results section. | + +--------+ + + + | BASIC METABOLIC | Routin | 12/29/2019 | | Results for this | | PANEL | e | 3:53 AM | | procedure are in the | | | | PDT | | results section. | + +--------+ + + + | POC GLUCOSE (NON | Routin | 12/28/2019 | | Results for this | | ORD) | e | 11:27 PM | | procedure are in the | | | | PDT | | results section. | + +--------+ + + + | HEMOGLOBIN AND | Routin | 12/28/2019 | | Results for this | | HEMATOCRIT | e | 10:33 PM | | procedure are in the | | | | PDT | | results section. | + +--------+ + + + | POC GLUCOSE (NON | Routin | 12/28/2019 | | Results for this | | ORD) | e | 8:47 PM | | procedure are in the | | | | PDT | | results section. | + +--------+ + + + | HC OCCULT BLD FECES | Routin | 12/28/2019 | | Results for this | | 1-3 TESTS | e | 7:20 PM | | procedure are in the | | | | PDT | | results section. | + +--------+ + + + | POC GLUCOSE (NON | Routin | 12/28/2019 | | Results for this | | ORD) | e | 4:32 PM | | procedure are in the | | | | PDT | | results section. | + +--------+ + + + | HEMOGLOBIN AND | Routin | 12/28/2019 | | Results for this | | HEMATOCRIT | e | 3:11 PM | | procedure are in the | | | | PDT | | results section. | + +--------+ + + + | POC GLUCOSE (NON | Routin | 12/28/2019 | | Results for this | | ORD) | e | 11:59 AM | | procedure are in the | | | | PDT | | results section. | + +--------+ + + + | POC GLUCOSE (NON | Routin | 12/28/2019 | | Results for this | | ORD) | e | 7:03 AM | | procedure are in the | | | | PDT | | results section. | + +--------+ + + + | CBC WITH | Routin | 12/28/2019 | | Results for this | | DIFFERENTIAL | e | 4:20 AM | | procedure are in the | | | | PDT | | results section. | + +--------+ + + + | BASIC METABOLIC | Routin | 12/28/2019 | | Results for this | | PANEL | e | 4:20 AM | | procedure are in the | | | | PDT | | results section. | + +--------+ + + + | POC GLUCOSE (NON | Routin | 12/27/2019 | | Results for this | | ORD) | e | 8:44 PM | | procedure are in the | | | | PDT | | results section. | + +--------+ + + + | TRANSFUSE 2 UNITS | Routin | 12/27/2019 | | | | RED BLOOD CELLS | e | 7:16 PM | | | | | | PDT | | | + +--------+ + + + | POC GLUCOSE (NON | Routin | 12/27/2019 | | Results for this | | ORD) | e | 3:30 PM | | procedure are in the | | | | PDT | | results section. | + +--------+ + + + | PRODUCT: RBC | NICHOL | 12/27/2019 | | Results for this | | | | 2:31 PM | | procedure are in the | | | | PDT | | results section. | + +--------+ + + + | TYPE AND SCREEN | NICHOL | 12/27/2019 | | Results for this | | | | 2:31 PM | | procedure are in the | | | | PDT | | results section. | + +--------+ + + + | POC GLUCOSE (NON | Routin | 12/27/2019 | | Results for this | | ORD) | e | 7:25 AM | | procedure are in the | | | | PDT | | results section. | + +--------+ + + + | PROCALCITONIN, SERUM | Routin | 12/27/2019 | | Results for this | | | e | 5:04 AM | | procedure are in the | | | | PDT | | results section. | + +--------+ + + + | VITAMIN D, | Routin | 12/27/2019 | | Results for this | | DEFICIENCY SCREEN | e | 5:04 AM | | procedure are in the | | (25-HYDROXY) | | PDT | | results section. | + +--------+ + + + | CBC WITH | Routin | 12/27/2019 | | Results for this | | DIFFERENTIAL | e | 5:04 AM | | procedure are in the | | | | PDT | | results section. | + +--------+ + + + | BASIC METABOLIC | Routin | 12/27/2019 | | Results for this | | PANEL | e | 5:04 AM | | procedure are in the | | | | PDT | | results section. | + +--------+ + + + | POTASSIUM | STAT | 12/27/2019 | | Results for this | | | | 12:08 AM | | procedure are in the | | | | PDT | | results section. | + +--------+ + + + | MAGNESIUM | STAT | 12/27/2019 | | Results for this | | | | 12:08 AM | | procedure are in the | | | | PDT | | results section. | + +--------+ + + + | ECG 12 LEAD | Routin | 12/26/2019 | | Results for this | | | e | 11:45 PM | | procedure are in the | | | | PDT | | results section. | + +--------+ + + + | POC GLUCOSE (NON | Routin | 12/26/2019 | | Results for this | | ORD) | e | 8:04 PM | | procedure are in the | | | | PDT | | results section. | + +--------+ + + + | POC GLUCOSE (NON | Routin | 12/26/2019 | | Results for this | | ORD) | e | 5:02 PM | | procedure are in the | | | | PDT | | results section. | + +--------+ + + + | COMPLEMENT C3 AG | Routin | 12/26/2019 | | Results for this | | | e | 12:33 PM | | procedure are in the | | | | PDT | | results section. | + +--------+ + + + | COMPLEMENT C4 AG | Routin | 12/26/2019 | | Results for this | | | e | 12:33 PM | | procedure are in the | | | | PDT | | results section. | + +--------+ + + + | POC GLUCOSE (NON | Routin | 12/26/2019 | | Results for this | | ORD) | e | 11:15 AM | | procedure are in the | | | | PDT | | results section. | + +--------+ + + + | POC GLUCOSE (NON | Routin | 12/26/2019 | | Results for this | | ORD) | e | 7:38 AM | | procedure are in the | | | | PDT | | results section. | + +--------+ + + + | PARATHYROID HORMONE, | Routin | 12/26/2019 | | Results for this | | INTRAOPERATIVE | e | 4:25 AM | | procedure are in the | | | | PDT | | results section. | + +--------+ + + + | RENAL FUNCTION PANEL | Routin | 12/26/2019 | | Results for this | | | e | 4:25 AM | | procedure are in the | | | | PDT | | results section. | + +--------+ + + + | POC GLUCOSE (NON | Routin | 12/25/2019 | | Results for this | | ORD) | e | 8:53 PM | | procedure are in the | | | | PDT | | results section. | + +--------+ + + + | POC GLUCOSE (NON | Routin | 12/25/2019 | | Results for this | | ORD) | e | 5:13 PM | | procedure are in the | | | | PDT | | results section. | + +--------+ + + + | ECHO COMPLETE | Routin | 12/25/2019 | | Results for this | | | e | 3:51 PM | | procedure are in the | | | | PDT | | results section. | + +--------+ + + + | POC GLUCOSE (NON | Routin | 12/25/2019 | | Results for this | | ORD) | e | 11:34 AM | | procedure are in the | | | | PDT | | results section. | + +--------+ + + + | POC GLUCOSE (NON | Routin | 12/25/2019 | | Results for this | | ORD) | e | 7:56 AM | | procedure are in the | | | | PDT | | results section. | + +--------+ + + + | CK TOTAL | Add-On | 12/25/2019 | | Results for this | | | | 4:25 AM | | procedure are in the | | | | PDT | | results section. | + +--------+ + + + | RENAL FUNCTION PANEL | Routin | 12/25/2019 | | Results for this | | | e | 4:25 AM | | procedure are in the | | | | PDT | | results section. | + +--------+ + + + | IMMUNOGLOBULIN, FREE | Routin | 12/25/2019 | | Results for this | | LIGHT CHAIN | e | 4:22 AM | | procedure are in the | | | | PDT | | results section. | + +--------+ + + + | SEDIMENTATION RATE | Routin | 12/25/2019 | | Results for this | | | e | 4:22 AM | | procedure are in the | | | | PDT | | results section. | + +--------+ + + + | GLOMERULAR BASEMENT | Routin | 12/25/2019 | | Results for this | | MEMBRANE AB, IGG | e | 4:22 AM | | procedure are in the | | | | PDT | | results section. | + +--------+ + + + | HEPATITIS PANEL, | Routin | 12/25/2019 | | Results for this | | ACUTE | e | 4:22 AM | | procedure are in the | | | | PDT | | results section. | + +--------+ + + + | CYTOPLASMIC | Routin | 12/25/2019 | | Results for this | | NEUTROPHIL AB | e | 4:22 AM | | procedure are in the | | | | PDT | | results section. | + +--------+ + + + | MAGNESIUM | Routin | 12/25/2019 | | Results for this | | | e | 4:22 AM | | procedure are in the | | | | PDT | | results section. | + +--------+ + + + | LACTATE | Routin | 12/25/2019 | | Results for this | | DEHYDROGENASE | e | 4:22 AM | | procedure are in the | | | | PDT | | results section. | + +--------+ + + + | CK TOTAL | Routin | 12/25/2019 | | Results for this | | | e | 4:22 AM | | procedure are in the | | | | PDT | | results section. | + +--------+ + + + | PROTEIN/CREATININE | Routin | 12/25/2019 | | Results for this | | RATIO, URINE | e | 12:01 AM | | procedure are in the | | | | PDT | | results section. | + +--------+ + + + | PROTEIN, URINE, | Routin | 12/25/2019 | | Results for this | | RANDOM | e | 12:01 AM | | procedure are in the | | | | PDT | | results section. | + +--------+ + + + | CREATININE, URINE, | Routin | 12/25/2019 | | Results for this | | RANDOM | e | 12:01 AM | | procedure are in the | | | | PDT | | results section. | + +--------+ + + + | POC GLUCOSE (NON | Routin | 12/24/2019 | | Results for this | | ORD) | e | 8:55 PM | | procedure are in the | | | | PDT | | results section. | + +--------+ + + + | POC GLUCOSE (NON | Routin | 12/24/2019 | | Results for this | | ORD) | e | 5:14 PM | | procedure are in the | | | | PDT | | results section. | + +--------+ + + + | ECG 12 LEAD | NICHOL | 12/24/2019 | | Results for this | | | | 2:26 PM | | procedure are in the | | | | PDT | | results section. | + +--------+ + + + | XR CHEST 2 VIEWS | Routin | 12/24/2019 | | Results for this | | | e | 2:06 PM | | procedure are in the | | | | PDT | | results section. | + +--------+ + + + | US RENAL LIMITED | Routin | 12/24/2019 | | Results for this | | | e | 1:31 PM | | procedure are in the | | | | PDT | | results section. | + +--------+ + + + | HC BLOOD GASES ANY | Routin | 12/24/2019 | | Results for this | | COMBINATION | e | 1:23 PM | | procedure are in the | | | | PDT | | results section. | + +--------+ + + + | CORONAVIRUS | STAT | 12/24/2019 | | Results for this | | (COVID-19) NAAT | | 1:10 PM | | procedure are in the | | | | PDT | | results section. | + +--------+ + + + | CULTURE, BLOOD | STAT | 12/24/2019 | | Results for this | | | | 1:02 PM | | procedure are in the | | | | PDT | | results section. | + +--------+ + + + | CULTURE, BLOOD | STAT | 12/24/2019 | | Results for this | | | | 12:56 PM | | procedure are in the | | | | PDT | | results section. | + +--------+ + + + | URINALYSIS WITH | Routin | 12/24/2019 | | Results for this | | MICROSCOPIC WITH | e | 12:45 PM | | procedure are in the | | CULTURE IF INDICATED | | PDT | | results section. | + +--------+ + + + | SODIUM, URINE, | Routin | 12/24/2019 | | Results for this | | RANDOM | e | 12:45 PM | | procedure are in the | | | | PDT | | results section. | + +--------+ + + + | CREATININE, URINE, | Routin | 12/24/2019 | | Results for this | | RANDOM | e | 12:45 PM | | procedure are in the | | | | PDT | | results section. | + +--------+ + + + | PROCALCITONIN, SERUM | Add-On | 12/24/2019 | | Results for this | | | | 12:27 PM | | procedure are in the | | | | PDT | | results section. | + +--------+ + + + | LACTIC ACID | STAT | 12/24/2019 | | Results for this | | | | 12:27 PM | | procedure are in the | | | | PDT | | results section. | + +--------+ + + + | POC GLUCOSE (NON | Routin | 12/24/2019 | | Results for this | | ORD) | e | 12:25 PM | | procedure are in the | | | | PDT | | results section. | + +--------+ + + + | RT BLOOD GAS POINT | Routin | 12/24/2019 | | | | OF CARE | e | 12:14 PM | | | | | | PDT | | | + +--------+ + + + | POC GLUCOSE (NON | Routin | 12/24/2019 | | Results for this | | ORD) | e | 8:32 AM | | procedure are in the | | | | PDT | | results section. | + +--------+ + + + | CBC NO DIFFERENTIAL | Routin | 12/24/2019 | | Results for this | | | e | 4:21 AM | | procedure are in the | | | | PDT | | results section. | + +--------+ + + + | BASIC METABOLIC | Routin | 12/24/2019 | | Results for this | | PANEL | e | 4:21 AM | | procedure are in the | | | | PDT | | results section. | + +--------+ + + + | POC GLUCOSE (NON | Routin | 12/23/2019 | | Results for this | | ORD) | e | 8:35 PM | | procedure are in the | | | | PDT | | results section. | + +--------+ + + + | POC GLUCOSE (NON | Routin | 12/23/2019 | | Results for this | | ORD) | e | 4:35 PM | | procedure are in the | | | | PDT | | results section. | + +--------+ + + + | POC GLUCOSE (NON | Routin | 12/23/2019 | | Results for this | | ORD) | e | 2:05 PM | | procedure are in the | | | | PDT | | results section. | + +--------+ + + + | POC GLUCOSE (NON | Routin | 12/23/2019 | | Results for this | | ORD) | e | 7:21 AM | | procedure are in the | | | | PDT | | results section. | + +--------+ + + + | CBC NO DIFFERENTIAL | STAT | 12/23/2019 | | Results for this | | | | 4:04 AM | | procedure are in the | | | | PDT | | results section. | + +--------+ + + + | PHOSPHORUS | Routin | 12/23/2019 | | Results for this | | | e | 4:04 AM | | procedure are in the | | | | PDT | | results section. | + +--------+ + + + | MAGNESIUM | Routin | 12/23/2019 | | Results for this | | | e | 4:04 AM | | procedure are in the | | | | PDT | | results section. | + +--------+ + + + | BASIC METABOLIC | Routin | 12/23/2019 | | Results for this | | PANEL | e | 4:04 AM | | procedure are in the | | | | PDT | | results section. | + +--------+ + + + | HEMOGLOBIN | STAT | 12/22/2019 | | Results for this | | | | 9:37 PM | | procedure are in the | | | | PDT | | results section. | + +--------+ + + + | HEMATOCRIT | STAT | 12/22/2019 | | Results for this | | | | 9:37 PM | | procedure are in the | | | | PDT | | results section. | + +--------+ + + + | POC GLUCOSE (NON | Routin | 12/22/2019 | | Results for this | | ORD) | e | 8:30 PM | | procedure are in the | | | | PDT | | results section. | + +--------+ + + + | POC GLUCOSE (NON | Routin | 12/22/2019 | | Results for this | | ORD) | e | 5:32 PM | | procedure are in the | | | | PDT | | results section. | + +--------+ + + + | TRANSFUSE 1 UNIT RED | Routin | 12/22/2019 | | | | BLOOD CELLS | e | 5:12 PM | | | | | | PDT | | | + +--------+ + + + | TRANSFUSE 1 UNIT RED | Routin | 12/22/2019 | | | | BLOOD CELLS | e | 1:38 PM | | | | | | PDT | | | + +--------+ + + + | PRODUCT: RBC | NICHOL | 12/22/2019 | | Results for this | | | | 10:50 AM | | procedure are in the | | | | PDT | | results section. | + +--------+ + + + | POC GLUCOSE (NON | Routin | 12/22/2019 | | Results for this | | ORD) | e | 10:38 AM | | procedure are in the | | | | PDT | | results section. | + +--------+ + + + | FL C MIGUEL | Routin | 12/22/2019 | | Results for this | | | e | 10:28 AM | | procedure are in the | | | | PDT | | results section. | + +--------+ + + + | POC ISTAT, CG8, | Routin | 12/22/2019 | | Results for this | | ARTERIAL | e | 10:03 AM | | procedure are in the | | | | PDT | | results section. | + +--------+ + + + | NATHANAEL THURSTON, | Routin | 12/22/2019 | | Results for this | | ARTERIAL | e | 9:23 AM | | procedure are in the | | | | PDT | | results section. | + +--------+ + + + | NATHANAEL THURSTON, | Routin | 12/22/2019 | | Results for this | | ARTERIAL | e | 8:47 AM | | procedure are in the | | | | PDT | | results section. | + +--------+ + + + | NATHANAEL THURSTON, | Routin | 12/22/2019 | | Results for this | | VENOUS | e | 8:03 AM | | procedure are in the | | | | PDT | | results section. | + +--------+ + + + | TYPE AND SCREEN | STAT | 12/22/2019 | | Results for this | | | | 7:43 AM | | procedure are in the | | | | PDT | | results section. | + +--------+ + + + | POC GLUCOSE (NON | Routin | 12/22/2019 | | Results for this | | ORD) | e | 5:35 AM | | procedure are in the | | | | PDT | | results section. | + +--------+ + + + | PROTIME INR | Routin | 12/22/2019 | | Results for this | | | e | 5:26 AM | | procedure are in the | | | | PDT | | results section. | + +--------+ + + + | CBC WITH | Routin | 12/22/2019 | | Results for this | | DIFFERENTIAL | e | 5:26 AM | | procedure are in the | | | | PDT | | results section. | + +--------+ + + + | MAGNESIUM | Routin | 12/22/2019 | | Results for this | | | e | 5:26 AM | | procedure are in the | | | | PDT | | results section. | + +--------+ + + + | BASIC METABOLIC | Routin | 12/22/2019 | | Results for this | | PANEL | e | 5:26 AM | | procedure are in the | | | | PDT | | results section. | + +--------+ + + + | POC GLUCOSE (NON | Routin | 12/21/2019 | | Results for this | | ORD) | e | 11:43 PM | | procedure are in the | | | | PDT | | results section. | + +--------+ + + + | POC GLUCOSE (NON | Routin | 12/21/2019 | | Results for this | | ORD) | e | 9:11 PM | | procedure are in the | | | | PDT | | results section. | + +--------+ + + + documented in this encounter Results POC Glucose (01/01/2020 11:24 AM PDT) + + + + + + | Component | Value | Ref Range | Performed | Pathologist | | | | | At | Signature | + + + + + + | Glucose, | 237 (H)Comment: Testing | 65 - 99 mg/dL | [facility] | | | POC | performed at [facility];[address] | | LABORATORY | | | | [address];[place] | | | | | | [address] | | | | + + + + + + + + | Specimen | + + | | + + + + + + + | Performing | Address | City/State/Zipcode | Phone Number | | Organization | | | | + + + + + | [facility] | [address] | [place] [address] | [phone] | + + + + + POC Glucose (01/01/2020 6:29 AM PDT) + + + + + + | Component | Value | Ref Range | Performed | Pathologist | | | | | At | Signature | + + + + + + | Glucose, | 143 (H)Comment: Testing | 65 - 99 mg/dL | [facility] | | | POC | performed at [facility];[address] | | LABORATORY | | | | [address];[place] | | | | | | [address] | | | | + + + + + + + + | Specimen | + + | | + + + + + + + | Performing | Address | City/State/Zipcode | Phone Number | | Organization | | | | + + + + + | [facility] | [address] | [place] [address] | [phone] | + + + + + Basic Metabolic Panel (01/01/2020 4:07 AM PDT) + + + + + + | Component | Value | Ref Range | Performed | Pathologist | | | | | At | Signature | + + + + + + | Na | 136 | 135 - 145 | [facility] | | | | | mmol/L | LABORATORY | | + + + + + + | K | 3.7 | 3.5 - 4.9 | [facility] | | | | | mmol/L | LABORATORY | | + + + + + + | Cl | 103 | 99 - 109 mmol/L | [facility] | | | | | | LABORATORY | | + + + + + + | CO2 | 23 | 23 - 32 mmol/L | [facility] | | | | | | LABORATORY | | + + + + + + | Anion Gap | 14 | 5 - 20 mmol/L | [facility] | | | | | | LABORATORY | | + + + + + + | Glucose | 130 (H) | 65 - 99 mg/dL | [facility] | | | | | | LABORATORY | | + + + + + + | BUN | 81 (H) | 8 - 25 mg/dL | [facility] | | | | | | LABORATORY | | + + + + + + | Creatinine | 2.69 (H) | 0.70 - 1.30 | [facility] | | | | | mg/dL | LABORATORY | | + + + + + + | BUN/Creatin | 30 | | [facility] | | | ine Ratio | | | LABORATORY | | + + + + + + | Calcium | 8.6 | 8.5 - 10.5 | [facility] | | | | | mg/dL | LABORATORY | | + + + + + + | Estimated | 23 (L)Comment: GFR <60: | >60 | [facility] | | | GFR | CHRONIC KIDNEY DISEASE, | mL/min/1.73m2 | LABORATORY | | | | IF FOUND OVER [...] | | | | | performed at [facility];[address] | | | | | | [address];[place] | | | | | | [address] | | | | + + + + + + + + | Specimen | + + | Blood | + + + + + + + | Performing | Address | City/State/Zipcode | Phone Number | | Organization | | | | + + + + + | [facility] | [address] | [place] [address] | [phone] | + + + + + CBC with Differential (01/01/2020 4:07 AM PDT) + + + + + + | Component | Value | Ref Range | Performed | Pathologist | | | | | At | Signature | + + + + + + | WBC | 6.66 | 3.80 - 11.00 | [facility] | | | | | K/uL | LABORATORY | | + + + + + + | RBC | 2.72 (L) | 4.20 - 5.70 | [facility] | | | | | M/uL | LABORATORY | | + + + + + + | Hemoglobin | 8.9 (L) | 13.2 - 17.0 | [facility] | | | | | g/dL | LABORATORY | | + + + + + + | Hematocrit | 26.5 (L) | 39.0 - 50.0 % | [facility] | | | | | | LABORATORY | | + + + + + + | MCV | 97.4 | 80.0 - 100.0 fl | [facility] | | | | | | LABORATORY | | + + + + + + | MCH | 32.7 | 27.0 - 34.0 pg | [facility] | | | | | | LABORATORY | | + + + + + + | MCHC | 33.6 | 32.0 - 35.5 | [facility] | | | | | g/dL | LABORATORY | | + + + + + + | RDW-SD | 52.7 | 37 - 53 fl | [facility] | | | | | | LABORATORY | | + + + + + + | Platelet | 91 (L) | 150 - 400 K/uL | [facility] | | | Count | | | LABORATORY | | + + + + + + | MPV | 11.5Comment: NO NORMAL | fl | [facility] | | | | RANGE ESTABLISHED | | LABORATORY | | + + + + + + | Diff Type | AUTOMATED | | [facility] | | | | | | LABORATORY | | + + + + + + | % nRBC | 0.0 | 0 /100WBC | [facility] | | | | | | LABORATORY | | + + + + + + | % | 74.80 | % | [facility] | | | Neutrophils | | | LABORATORY | | + + + + + + | IMMATURE | 1.10 | % | [facility] | | | GRANULOCYTE | | | LABORATORY | | + + + + + + | % | 9.30 | % | [facility] | | | Lymphocytes | | | LABORATORY | | + + + + + + | Monocyte % | 9.50 | % | [facility] | | | | | | LABORATORY | | + + + + + + | Eosinophils | 5.00 | % | [facility] | | | % | | | LABORATORY | | + + + + + + | Basophils % | 0.30 | % | [facility] | | | | | | LABORATORY | | + + + + + + | Neutrophils | 4.99 | 1.90 - 7.40 | [facility] | | | , Absolute | | K/uL | LABORATORY | | + + + + + + | IMMATURE | 0.07Comment: NOTE NEW | 0.00 - 0.07 | [facility] | | | GRANS AB | REFERENCE RANGE | K/uL | LABORATORY | | + + + + + + | Absolute | 0.62 (L) | 1.00 - 3.90 | [facility] | | | Lymphocytes | | K/uL | LABORATORY | | + + + + + + | Absolute | 0.63 | 0.00 - 0.80 | [facility] | | | Monocytes | | K/uL | LABORATORY | | + + + + + + | Eosinophils | 0.33 | 0.00 - 0.50 | [facility] | | | , Absolute | | K/uL | LABORATORY | | + + + + + + | Basophils, | 0.02Comment: Testing | 0.00 - 0.10 | [facility] | | | Absolute | performed at [facility];[address] | K/uL | LABORATORY | | | | [address];[place] | | | | | | [address] | | | | + + + + + + + + | Specimen | + + | Blood | + + + + + + + | Performing | Address | City/State/Zipcode | Phone Number | | Organization | | | | + + + + + | [facility] | [address] | [place] [address] | [phone] | + + + + + POC Glucose (12/31/2019 9:02 PM PDT) + + + + + + | Component | Value | Ref Range | Performed | Pathologist | | | | | At | Signature | + + + + + + | Glucose, | 137 (H)Comment: Testing | 65 - 99 mg/dL | [facility] | | | POC | performed at [facility];[address] | | LABORATORY | | | | [address];[place] | | | | | | [address] | | | | + + + + + + + + | Specimen | + + | | + + + + + + + | Performing | Address | City/State/Zipcode | Phone Number | | Organization | | | | + + + + + | [facility] | [address] | [place] [address] | [phone] | + + + + + POC Glucose (12/31/2019 5:31 PM PDT) + + + + + + | Component | Value | Ref Range | Performed | Pathologist | | | | | At | Signature | + + + + + + | Glucose, | 196 (H)Comment: Testing | 65 - 99 mg/dL | [facility] | | | POC | performed at [facility];[address] | | LABORATORY | | | | [address];[place], [place] | | | | | | [address] | | | | + + + + + + + + | Specimen | + + | | + + + + + + + | Performing | Address | City/State/Zipcode | Phone Number | | Organization | | | | + + + + + | [facility] | [address] | [place] [address] | [phone] | + + + + + POC Glucose (12/31/2019 12:50 PM PDT) + + + + + + | Component | Value | Ref Range | Performed | Pathologist | | | | | At | Signature | + + + + + + | Glucose, | 239 (H)Comment: Testing | 65 - 99 mg/dL | [facility] | | | POC | performed at [facility];[address] | | LABORATORY | | | [address];[place] | | | | | | [address] | | | | + + + + + + + + | Specimen | + + | | + + + + + + + | Performing | Address | City/State/Zipcode | Phone Number | | Organization | | | | + + + + + | [facility] | [address] | [place] [address] | [phone] | + + + + + POC Glucose (12/31/2019 6:36 AM PDT) + + + + + + | Component | Value | Ref Range | Performed | Pathologist | | | | | At | Signature | + + + + + + | Glucose, | 154 (H)Comment: Testing | 65 - 99 mg/dL | [facility] | | | POC | performed at [facility];[address] | | LABORATORY | | | | [address];[place], [place] | | | | | | [address] | | | | + + + + + + + + | Specimen | + + | | + + + + + + + | Performing | Address | City/State/Zipcode | Phone Number | | Organization | | | | + + + + + | [facility] | [address] | [place] [address] | [phone] | + + + + + Basic Metabolic Panel (12/31/2019 6:17 AM PDT) + + + + + + | Component | Value | Ref Range | Performed | Pathologist | | | | | At | Signature | + + + + + + | Na | 136 | 135 - 145 | [facility] | | | | | mmol/L | LABORATORY | | + + + + + + | K | 4.0 | 3.5 - 4.9 | [facility] | | | | | mmol/L | LABORATORY | | + + + + + + | Cl | 107 | 99 - 109 mmol/L | [facility] | | | | | | LABORATORY | | + + + + + + | CO2 | 20 (L) | 23 - 32 mmol/L | [facility] | | | | | | LABORATORY | | + + + + + + | Anion Gap | 13 | 5 - 20 mmol/L | [facility] | | | | | | LABORATORY | | + + + + + + | Glucose | 134 (H) | 65 - 99 mg/dL | [facility] | | | | | | LABORATORY | | + + + + + + | BUN | 83 (H) | 8 - 25 mg/dL | [facility] | | | | | | LABORATORY | | + + + + + + | Creatinine | 3.3 (H) | 0.70 - 1.30 | [facility] | | | | | mg/dL | LABORATORY | | + + + + + + | BUN/Creatin | 25 | | [facility] | | | ine Ratio | | | LABORATORY | | + + + + + + | Calcium | 8.5 | 8.5 - 10.5 | [facility] | | | | | mg/dL | LABORATORY | | + + + + + + | Estimated | 18 (L)Comment: GFR <60: | >60 | [facility] | | | GFR | CHRONIC KIDNEY DISEASE, | mL/min/1.73m2 | LABORATORY | | | | IF FOUND OVER [...] | | | | | performed at [facility], [address] | | | | | | [facility], | | | | | | [place] [address] | | | | + + + + + + + + | Specimen | + + | Blood | + + + + + + + | Performing | Address | City/State/Zipcode | Phone Number | | Organization | | | | + + + + + | [facility] | [address] | [place] [address] | [phone] | + + + + + CBC with Differential (12/31/2019 6:17 AM PDT) + + + + + + | Component | Value | Ref Range | Performed | Pathologist | | | | | At | Signature | + + + + + + | WBC | 7.55 | 3.80 - 11.00 | [facility] | | | | | K/uL | LABORATORY | | + + + + + + | RBC | 2.92 (L) | 4.20 - 5.70 | [facility] | | | | | M/uL | LABORATORY | | + + + + + + | Hemoglobin | 9.5 (L) | 13.2 - 17.0 | [facility] | | | | | g/dL | LABORATORY | | + + + + + + | Hematocrit | 28.3 (L) | 39.0 - 50.0 % | [facility] | | | | | | LABORATORY | | + + + + + + | MCV | 96.9 | 80.0 - 100.0 fl | [facility] | | | | | | LABORATORY | | + + + + + + | MCH | 32.5 | 27.0 - 34.0 pg | [facility] | | | | | | LABORATORY | | + + + + + + | MCHC | 33.6 | 32.0 - 35.5 | [facility] | | | | | g/dL | LABORATORY | | + + + + + + | RDW-SD | 52.8 | 37 - 53 fl | [facility] | | | | | | LABORATORY | | + + + + + + | Platelet | 83 (L) | 150 - 400 K/uL | [facility] | | | Count | | | LABORATORY | | + + + + + + | MPV | 11.3Comment: NO NORMAL | fl | [facility] | | | | RANGE ESTABLISHED | | LABORATORY | | + + + + + + | Diff Type | AUTOMATED | | [facility] | | | | | | LABORATORY | | + + + + + + | % nRBC | 0.3 (H) | 0 /100WBC | [facility] | | | | | | LABORATORY | | + + + + + + | % | 74.00 | % | [facility] | | | Neutrophils | | | LABORATORY | | + + + + + + | IMMATURE | 0.90 | % | [facility] | | | GRANULOCYTE | | | LABORATORY | | + + + + + + | % | 10.60 | % | [facility] | | | Lymphocytes | | | LABORATORY | | + + + + + + | Monocyte % | 10.20 | % | [facility] | | | | | | LABORATORY | | + + + + + + | Eosinophils | 4.00 | % | [facility] | | | % | | | LABORATORY | | + + + + + + | Basophils % | 0.30 | % | [facility] | | | | | | LABORATORY | | + + + + + + | Neutrophils | 5.59 | 1.90 - 7.40 | [facility] | | | , Absolute | | K/uL | LABORATORY | | + + + + + + | IMMATURE | 0.07Comment: NOTE NEW | 0.00 - 0.07 | [facility] | | | GRANS AB | REFERENCE RANGE | K/uL | LABORATORY | | + + + + + + | Absolute | 0.80 (L) | 1.00 - 3.90 | [facility] | | | Lymphocytes | | K/uL | LABORATORY | | + + + + + + | Absolute | 0.77 | 0.00 - 0.80 | [facility] | | | Monocytes | | K/uL | LABORATORY | | + + + + + + | Eosinophils | 0.30 | 0.00 - 0.50 | [facility] | | | , Absolute | | K/uL | LABORATORY | | + + + + + + | Basophils, | 0.02Comment: Testing | 0.00 - 0.10 | [facility] | | | Absolute | performed at [facility], [address] | K/uL | LABORATORY | | | | [address], | | | | | | [place] [address] | | | | + + + + + + + + | Specimen | + + | Blood | + + + + + + + | Performing | Address | City/State/Zipcode | Phone Number | | Organization | | | | + + + + + | [facility] | [address] | [place] [address] | [phone] | + + + + + POC Glucose (12/30/2019 8:55 PM PDT) + + + + + + | Component | Value | Ref Range | Performed | Pathologist | | | | | At | Signature | + + + + + + | Glucose, | 192 (H)Comment: Testing | 65 - 99 mg/dL | [facility] | | | POC | performed at [facility];[address] | | LABORATORY | | | | [address];[place], [place] | | | | | | [address] | | | | + + + + + + + + | Specimen | + + | | + + + + + + + | Performing | Address | City/State/Zipcode | Phone Number | | Organization | | | | + + + + + | [facility] | [address] | [place] [address] | [phone] | + + + + + POC Glucose (12/30/2019 4:11 PM PDT) + + + + + + | Component | Value | Ref Range | Performed | Pathologist | | | | | At | Signature | + + + + + + | Glucose, | 130 (H)Comment: Testing | 65 - 99 mg/dL | [facility] | | | POC | performed at [facility];[address] | | LABORATORY | | | | [address];[place] | | | | | | [address] | | | | + + + + + + + + | Specimen | + + | | + + + + + + + | Performing | Address | City/State/Zipcode | Phone Number | | Organization | | | | + + + + + | [facility] | [address] | [place] [address] | [phone] | + + + + + POC Glucose (12/30/2019 11:02 AM PDT) + + + + + + | Component | Value | Ref Range | Performed | Pathologist | | | | | At | Signature | + + + + + + | Glucose, | 128 (H)Comment: Testing | 65 - 99 mg/dL | [facility] | | | POC | performed at [facility];[address] | | LABORATORY | | | | [address];[place] | | | | | | [address] | | | | + + + + + + + + | Specimen | + + | | + + + + + + + | Performing | Address | City/State/Zipcode | Phone Number | | Organization | | | | + + + + + | [facility] | [address] | [place] [address] | [phone] | + + + + + Basic Metabolic Panel (12/30/2019 8:52 AM PDT) + + + + + + | Component | Value | Ref Range | Performed | Pathologist | | | | | At | Signature | + + + + + + | Na | 141 | 135 - 145 | [facility] | | | | | mmol/L | LABORATORY | | + + + + + + | K | 4.0 | 3.5 - 4.9 | [facility] | | | | | mmol/L | LABORATORY | | + + + + + + | Cl | 107 | 99 - 109 mmol/L | [facility] | | | | | | LABORATORY | | + + + + + + | CO2 | 21 (L) | 23 - 32 mmol/L | [facility] | | | | | | LABORATORY | | + + + + + + | Anion Gap | 17 | 5 - 20 mmol/L | [facility] | | | | | | LABORATORY | | + + + + + + | Glucose | 92 | 65 - 99 mg/dL | [facility] | | | | | | LABORATORY | | + + + + + + | BUN | 70 (H) | 8 - 25 mg/dL | [facility] | | | | | | LABORATORY | | + + + + + + | Creatinine | 3.04 (H) | 0.70 - 1.30 | [facility] | | | | | mg/dL | LABORATORY | | + + + + + + | BUN/Creatin | 23 | | [facility] | | | ine Ratio | | | LABORATORY | | + + + + + + | Calcium | 8.6 | 8.5 - 10.5 | [facility] | | | | | mg/dL | LABORATORY | | + + + + + + | Estimated | 20 (L)Comment: GFR <60: | >60 | [facility] | | | GFR | CHRONIC KIDNEY DISEASE, | mL/min/1.73m2 | LABORATORY | | | | IF FOUND OVER [...] | | | | | performed at [facility];[address] | | | | | | [facility];[place], [place] | | | | | | [address] | | | | + + + + + + + + | Specimen | + + | Blood | + + + + + + + | Performing | Address | City/State/Zipcode | Phone Number | | Organization | | | | + + + + + | [facility] | [address] | [place] [address] | [phone] | + + + + + POC Glucose (12/30/2019 6:04 AM PDT) + + + + + + | Component | Value | Ref Range | Performed | Pathologist | | | | | At | Signature | + + + + + + | Glucose, | 103 (H)Comment: Testing | 65 - 99 mg/dL | [facility] | | | POC | performed at [facility];[address] | | LABORATORY | | | | [address];[place], [place] | | | | | | [address] | | | | + + + + + + + + | Specimen | + + | | + + + + + + + | Performing | Address | City/State/Zipcode | Phone Number | | Organization | | | | + + + + + | [facility] | [address] [facility] [address] [facility] | [place] [address] | [phone] | + + + + + CBC with Differential (12/30/2019 4:12 AM PDT) + + + + + + | Component | Value | Ref Range | Performed | Pathologist | | | | | At | Signature | + + + + + + | WBC | 6.69 | 3.80 - 11.00 | [facility] | | | | | K/uL | LABORATORY | | + + + + + + | RBC | 2.88 (L) | 4.20 - 5.70 | [facility] | | | | | M/uL | LABORATORY | | + + + + + + | Hemoglobin | 9.3 (L) | 13.2 - 17.0 | [facility] | | | | | g/dL | LABORATORY | | + + + + + + | Hematocrit | 28.3 (L) | 39.0 - 50.0 % | [facility] | | | | | | LABORATORY | | + + + + + + | MCV | 98.3 | 80.0 - 100.0 fl | [facility] | | | | | | LABORATORY | | + + + + + + | MCH | 32.3 | 27.0 - 34.0 pg | [facility] | | | | | | LABORATORY | | + + + + + + | MCHC | 32.9 | 32.0 - 35.5 | [facility] | | | | | g/dL | LABORATORY | | + + + + + + | RDW-SD | 55.7 (H) | 37 - 53 fl | [facility] | | | | | | LABORATORY | | + + + + + + | Platelet | 85 (L) | 150 - 400 K/uL | [facility] | | | Count | | | LABORATORY | | + + + + + + | MPV | 10.8Comment: NO NORMAL | fl | [facility] | | | | RANGE ESTABLISHED | | LABORATORY | | + + + + + + | Diff Type | AUTOMATED | | [facility] | | | | | | LABORATORY | | + + + + + + | % nRBC | 0.0 | 0 /100WBC | [facility] | | | | | | LABORATORY | | + + + + + + | % | 72.60 | % | [facility] | | | Neutrophils | | | LABORATORY | | + + + + + + | IMMATURE | 0.70 | % | [facility] | | | GRANULOCYTE | | | LABORATORY | | + + + + + + | % | 10.50 | % | [facility] | | | Lymphocytes | | | LABORATORY | | + + + + + + | Monocyte % | 12.10 | % | [facility] | | | | | | LABORATORY | | + + + + + + | Eosinophils | 3.70 | % | [facility] | | | % | | | LABORATORY | | + + + + + + | Basophils % | 0.40 | % | [facility] | | | | | | LABORATORY | | + + + + + + | Neutrophils | 4.85 | 1.90 - 7.40 | [facility] | | | , Absolute | | K/uL | LABORATORY | | + + + + + + | IMMATURE | 0.05Comment: NOTE NEW | 0.00 - 0.07 | [facility] | | | GRANS AB | REFERENCE RANGE | K/uL | LABORATORY | | + + + + + + | Absolute | 0.70 (L) | 1.00 - 3.90 | [facility] | | | Lymphocytes | | K/uL | LABORATORY | | + + + + + + | Absolute | 0.81 (H) | 0.00 - 0.80 | [facility] | | | Monocytes | | K/uL | LABORATORY | | + + + + + + | Eosinophils | 0.25 | 0.00 - 0.50 | [facility] | | | , Absolute | | K/uL | LABORATORY | | + + + + + + | Basophils, | 0.03Comment: Testing | 0.00 - 0.10 | [facility] | | | Absolute | performed at [facility];[address] | K/uL | LABORATORY | | | | [address];[place] | | | | | | [address] | | | | + + + + + + + + | Specimen | + + | Blood | + + + + + + + | Performing | Address | City/State/Zipcode | Phone Number | | Organization | | | | + + + + + | [facility] | [address] | [place] [address] | [phone] | + + + + + POC Glucose (12/29/2019 11:56 PM PDT) + + + + + + | Component | Value | Ref Range | Performed | Pathologist | | | | | At | Signature | + + + + + + | Glucose, | 109 (H)Comment: Testing | 65 - 99 mg/dL | [facility] | | | POC | performed at [facility];[address] | | LABORATORY | | | | [address];[place], [place] | | | | | | [address] | | | | + + + + + + + + | Specimen | + + | | + + + + + + + | Performing | Address | City/State/Zipcode | Phone Number | | Organization | | | | + + + + + | [facility] | [address] | [place] [address] | [phone] | + + + + + Hemoglobin and Hematocrit (12/29/2019 9:46 PM PDT) + + + + + + | Component | Value | Ref Range | Performed | Pathologist | | | | | At | Signature | + + + + + + | Hemoglobin | 9.8 (L) | 13.2 - 17.0 | [facility] | | | | | g/dL | LABORATORY | | + + + + + + | Hematocrit | 29.6 (L)Comment: Testing | 39.0 - 50.0 % | [facility] | | | | performed at [facility];[address] | | LABORATORY | | | | [facility];[place], [place] | | | | | | [address] | | | | + + + + + + + + | Specimen | + + | Blood | + + + + + + + | Performing | Address | City/State/Zipcode | Phone Number | | Organization | | | | + + + + + | [facility] | [address] | [place] [address] | [phone] | + + + + + POC Glucose (12/29/2019 6:06 PM PDT) + + + + + + | Component | Value | Ref Range | Performed | Pathologist | | | | | At | Signature | + + + + + + | Glucose, | 128 (H)Comment: Testing | 65 - 99 mg/dL | [facility] | | | POC | performed at [facility];[address] | | LABORATORY | | | | [address];[place], [place] | | | | | | [address] | | | | + + + + + + + + | Specimen | + + | | + + + + + + + | Performing | Address | City/State/Zipcode | Phone Number | | Organization | | | | + + + + + | [facility] | [address] | [place] [address] | [phone] | + + + + + Hemoglobin and Hematocrit (12/29/2019 4:08 PM PDT) + + + + + + | Component | Value | Ref Range | Performed | Pathologist | | | | | At | Signature | + + + + + + | Hemoglobin | 9.8 (L) | 13.2 - 17.0 | [facility] | | | | | g/dL | LABORATORY | | + + + + + + | Hematocrit | 29.5 (L)Comment: Testing | 39.0 - 50.0 % | [facility] | | | | performed at [facility] | | LABORATORY | | | | [facility];[place], [place] | | | | | | [address] | | | | + + + + + + + + | Specimen | + + | Blood | + + + + + + + | Performing | Address | City/State/Zipcode | Phone Number | | Organization | | | | + + + + + | [facility] | [address] | [place] [address] | [phone] | + + + + + POC Glucose (12/29/2019 11:43 AM PDT) + + + + + + | Component | Value | Ref Range | Performed | Pathologist | | | | | At | Signature | + + + + + + | Glucose, | 191 (H)Comment: Testing | 65 - 99 mg/dL | [facility] | | | POC | performed at [facility];[address] | | LABORATORY | | | | [address];[place] | | | | | | [address] | | | | + + + + + + + + | Specimen | + + | | + + + + + + + | Performing | Address | City/State/Zipcode | Phone Number | | Organization | | | | + + + + + | [facility] | [address] | [place] [address] | [phone] | + + + + + POC Glucose (12/29/2019 11:06 AM PDT) + + + + + + | Component | Value | Ref Range | Performed | Pathologist | | | | | At | Signature | + + + + + + | Glucose, | 205 (H)Comment: Testing | 65 - 99 mg/dL | [facility] | | | POC | performed at [facility];888 | | LABORATORY | | | | [address];[place] | | | | | | [address] | | | | + + + + + + + + | Specimen | + + | | + + + + + + + | Performing | Address | City/State/Zipcode | Phone Number | | Organization | | | | + + + + + | [facility] | [address] | [place] [address] | [phone] | + + + + + Surgical Pathology Exam (12/29/2019 9:20 AM PDT) + + | Specimen | + + | Tissue - Specimen | | from stomach | | (specimen) | + + | Soft tissue sample | | (specimen) - | | Specimen from | | esophagus (specimen) | + + + + + | Narrative | Performed At | + + + | SPECIMEN(S): A | [facility] | | GASTRIC BIOPSYSPECIMEN(S): B ESOPHAGEAL BIOPSY SPECIMEN SOURCE:A. | [facility] | | GASTRIC BIOPSYB. ESOPHAGEAL BIOPSY CLINICAL HISTORY:K92.2 (acute GI | | | bleeding). Rule out H pylori. Rule out esophagitis. MICROSCOPIC | | | DESCRIPTION:Histologic sections of all submitted blocks are examined | | | by light microscopy. These findings, together with the gross | | | examination, support the pathologic diagnosis. FINAL PATHOLOGIC | | | DIAGNOSIS:A. Stomach, biopsies:- Mild chronic gastritis with | | | vascular congestion, negative for active inflammation.- No | | | Helicobacter pylori bacteria are detected by HE stain. B. Esophagus, | | | biopsies:- Active esophagogastritis with ulceration and ulcer | | | exudate.- No fungal organisms are detected by PAS stain.- Negative | | | for Dumont's (goblet cell) metaplasia, dysplasia or malignancy. | | | AMB:emb:C2NR GROSS DESCRIPTION:Two specimens are received in two | | | containers, labeled "Andres Guzmán." A. The specimen, | | | labeled "Andres Guzmán, gastric biopsy," is received in | | | formalin and consists of four pascal soft tissue fragment(s) that measure | | | 0.2-0.4 cm in greatest dimension. The specimenis entirely submitted | | | in cassette (A1). B. The specimen, labeled "Andres Guzmán, | | | esophagus biopsy," is received in formalin and consists of two | | | white-pascal soft tissue fragment(s) that measure 0.2 and 0.3 cm in | | | greatest dimension.The specimen is entirely submitted in cassette | | | (B1).FB (under the direct supervision of a pathologist) The Gross | | | Description was prepared using a voice recognition system. The | | | report was reviewed for accuracy; however, sound-alike word errors, | | | addition and/or deletions may occur. If there is anyquestion about | | | this report, please contact Client Services. PERFORMING LABORATORY:The | | | technical component was performed by [facility], [address] [place] [address] | | [place] [address] (Passport Support Manager: Padmini Sellers MD; CLIA# | | | [id number]). Professional interpretation was performed by[facility] | | | [address], | | | [place] [address] (Passport Support Manager: Oscar Maynard M.D.; CLIA#: | | | [id number]). Diagnostician: Padmini Sellers | | | MDPathologistElectronically Signed 12/31/2019 | | | | | |The Gross Description was prepared using a voice recognition system. The report was revie wed for accuracy; however, sound-alike word errors, addition and/or deletions may occur. I f there is any | | |question about this report, please contact Client Services. | | | | | |PERFORMING LABORATORY: | | |The technical component was performed by [facility], [address] [place] [address] (Passport Support Manager: Padmini Sellers MD; CLIA# [id number]). Professional interpretation was performed by | | |[facility] [address] (Passport Support Manager: Oscar Maynard M.D.; CLIA#: [id number]). | | | | | |Diagnostician: Padmini Sellers MD | | |Pathologist | | |Electronically Signed 12/31/2019 | | | | | | | | + + + + +---------+ + + | Performing | Address | City/State/Zipcode | Phone Number | | Organization | | | | + +---------+ + + | [facility] | | | | | [facility] | | | | + +---------+ + + EGD (12/29/2019 8:36 AM PDT) + + | Specimen | + + | | + + + + + | Narrative | Performed At | + + + | [facility] | [facility] | | [facility] | [facility] | | Center[facility]enterology | | | Patient Name: Andres Guzmán | | | Procedure Date: 12/29/2019 8:36 AMMRN: [id number] | | | of : 1930 | | | Note Status: FinalizedAttending MD: LAMONT HERNANDEZ , | | | MD | | | | | | Procedure Type: Upper GI | | | endoscopyIndications: Gely MD: | | | Kb Allen MdMedicines: Monitored | | | Anesthesia CareComplications: No immediate | | | complications. | | | Procedure: Pre-Anesthesia Assessment: | | | - Prior to the procedure, a History and Physical was performed, and | | | patient medications and allergies were reviewed. The patient | | | is competent. The risks and benefits of the procedure and the | | | sedation options and risks were discussed with the patient. All | | | questions were answered and informed consent was obtained. | | | Patient identification and proposed procedure were verified by | | | the physician, the nurse, the anesthesiologist and the | | | robot technician in the pre-procedure area in the procedure room. | | | Mental Status Examination: alert and oriented. Airway | | | Examination: normal oropharyngeal airway and neck mobility. | | | Respiratory Examination: clear to auscultation. CV Examination: | | | normal. Prophylactic Antibiotics: The patient does not require | | | prophylactic antibiotics. Prior Anticoagulants: The patient | | | has taken Eliquis (apixaban), last dose was 2 days prior to | | | procedure. ASA Grade Assessment: III - A patient with severe | | | systemic disease. After reviewing the risks and benefits, the | | | patient was deemed in satisfactory condition to undergo the | | | procedure. The anesthesia plan was to use monitored anesthesia care | | | (MAC). Immediately prior to administration of medications, the | | | patient was re-assessed for adequacy to receive sedatives. The | | | heart rate, respiratory rate, oxygen saturations, blood | | | pressure, adequacy of pulmonary ventilation, and response to | | | care were monitored throughout the procedure. The physical | | | status of the patient was re-assessed after the procedure. | | | After obtaining informed consent, the endoscope was passed under | | | direct vision. Throughout the procedure, the patient's blood | | | pressure, pulse, and oxygen saturations were monitored | | | continuously. The Endoscope was introduced through the mouth, | | | and advanced to the third part of duodenum. The upper GI | | | endoscopy was accomplished without difficulty. The patient | | | tolerated the procedure well. | | | | | | Estimated Blood Loss: Estimated blood loss: | | | none.Findings: LA Grade C (one or more mucosal breaks continuous | | | between tops of 2 or more mucosal folds, less than 75% | | | circumference) esophagitis with bleeding was found 32 to 36 cm | | | from the incisors. Biopsies were taken with a cold forceps for | | | histology. Verification of patient identification for the | | | specimen was done by the physician and nurse using the | | | patient's name and date. Estimated blood loss was | | | minimal. Mild oozing noted diffusely from esophagitis on contact with | | | endoscope which stops spontanrously after 1-2 minutes. No | | | visible vessel or significant bleeding noted. A small | | | hiatal hernia was present. Diffuse mildly erythematous mucosa | | | without bleeding was found in the entire examined stomach. | | | Biopsies were taken with a cold forceps for histology. | | | Verification of patient identification for the specimen was | | | done by the physician and nurse using the patient's name and | | | date. Estimated blood loss was minimal. No other | | | significant abnormalities were identified in a careful | | | examination of the stomach. The cardia and gastric fundus were | | | normal on retroflexion. One oozing cratered duodenal ulcer with | | | a visible vessel was found in the duodenal bulb. The lesion was | | | 10 mm in largest dimension. Area was successfully injected | | | with 10 mL of a 1:10,000 solution of epinephrine for | | | hemostasis. Estimated blood loss was minimal. Coagulation for | | | hemostasis using bipolar probe was successful. Thermal coagulation | | | with Gold probe 7 Anguillan x 5 pulses was successful with | | | hemostasis. One non-bleeding cratered duodenal ulcer with a | | | clean ulcer base (Usama Class III) was found in the second | | | portion of the duodenum. The lesion was 7 mm in largest | | | dimension. The exam of the duodenum was otherwise normal. 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 Rule out Dumont's esophagus. Biopsied. - | | | Small hiatal hernia. - Erythematous mucosa in the stomach. | | | Biopsied. - Oozing duodenal ulcer with a visible vessel. | | | Injected. Treated with bipolar cautery. - Non-bleeding | | | duodenal ulcer with a clean ulcer base (Usama Class | | | III).Recommendation: - Return patient to hospital [facility] for | | | ongoing care. - NPO today. - Continue present medications. | | | - Await pathology results. - Repeat upper endoscopy for | | | surveillance based on pathology results. - Give Protonix | | | (pantoprazole): initiate therapy with 80 mg IV bolus, then 8 | | | mg/hr IV by continuous infusion for 3 days. - No aspirin, | | | ibuprofen, naproxen, or other non-steroidal anti-inflammatory | | | drugs. - Resume Eliquis (apixaban) at prior dose in 7 days. | | | - The findings and recommendations were discussed with the patient. | | | - Check hemoglobin q 6 hours for one day. | | | LAMONT HERNANDEZ MD12/29/2019 10:19:54 AMThis report | | | has been signed electronically. Note Initiated On: 12/29/2019 8:36 | | | AMNumber of Addenda: 0 [facility] | | | - Check hemoglobin q 6 hours for one day. | | | | | | | | |LAMONT HERNANDEZ MD | | |12/29/2019 10:19:54 AM | | |This report has been signed electronically. | | | | | |Note Initiated On: 12/29/2019 8:36 AM | | |Number of Addenda: 0 | | | | | | [facility] | | + + + + +---------+ + + | Performing | Address | City/State/Zipcode | Phone Number | | Organization | | | | + +---------+ + + | [facility] | | | | + +---------+ + + Hemoglobin and Hematocrit (12/29/2019 6:53 AM PDT) + + + + + + | Component | Value | Ref Range | Performed | Pathologist | | | | | At | Signature | + + + + + + | Hemoglobin | 9.2 (L) | 13.2 - 17.0 | [facility] | | | | | g/dL | LABORATORY | | + + + + + + | Hematocrit | 27.2 (L)Comment: Testing | 39.0 - 50.0 % | [facility] | | | | performed at [facility];[address] | | LABORATORY | | | | [address];[place], [place] | | | | | | [address] | | | | + + + + + + + + | Specimen | + + | Blood | + + + + + + + | Performing | Address | City/State/Zipcode | Phone Number | | Organization | | | | + + + + + | [facility] | [address] | [place] [address] | [phone] | + + + + + POC Glucose (12/29/2019 6:06 AM PDT) + + + + + + | Component | Value | Ref Range | Performed | Pathologist | | | | | At | Signature | + + + + + + | Glucose, | 146 (H)Comment: Testing | 65 - 99 mg/dL | [facility] | | | POC | performed at [facility];[address] | | LABORATORY | | | | [address];[place], [place] | | | | | | [address] | | | | + + + + + + + + | Specimen | + + | | + + + + + + + | Performing | Address | City/State/Zipcode | Phone Number | | Organization | | | | + + + + + | [facility] | [address] | [place] [address] | [phone] | + + + + + CBC with Differential (12/29/2019 3:53 AM PDT) + + + + + + | Component | Value | Ref Range | Performed | Pathologist | | | | | At | Signature | + + + + + + | WBC | 5.92 | 3.80 - 11.00 | [facility] | | | | | K/uL | LABORATORY | | + + + + + + | RBC | 2.84 (L) | 4.20 - 5.70 | [facility] | | | | | M/uL | LABORATORY | | + + + + + + | Hemoglobin | 9.0 (L) | 13.2 - 17.0 | [facility] | | | | | g/dL | LABORATORY | | + + + + + + | Hematocrit | 27.0 (L) | 39.0 - 50.0 % | [facility] | | | | | | LABORATORY | | + + + + + + | MCV | 95.1 | 80.0 - 100.0 fl | [facility] | | | | | | LABORATORY | | + + + + + + | MCH | 31.7 | 27.0 - 34.0 pg | [facility] | | | | | | LABORATORY | | + + + + + + | MCHC | 33.3 | 32.0 - 35.5 | [facility] | | | | | g/dL | LABORATORY | | + + + + + + | RDW-SD | 54.3 (H) | 37 - 53 fl | [facility] | | | | | | LABORATORY | | + + + + + + | Platelet | 91 (L) | 150 - 400 K/uL | [facility] | | | Count | | | LABORATORY | | + + + + + + | MPV | 11.2Comment: NO NORMAL | fl | [facility] | | | | RANGE ESTABLISHED | | LABORATORY | | + + + + + + | Diff Type | AUTOMATED | | [facility] | | | | | | LABORATORY | | + + + + + + | % nRBC | 0.3 (H) | 0 /100WBC | [facility] | | | | | | LABORATORY | | + + + + + + | % | 68.50 | % | [facility] | | | Neutrophils | | | LABORATORY | | + + + + + + | IMMATURE | 0.70 | % | [facility] | | | GRANULOCYTE | | | LABORATORY | | + + + + + + | % | 11.50 | % | [facility] | | | Lymphocytes | | | LABORATORY | | + + + + + + | Monocyte % | 14.90 | % | [facility] | | | | | | LABORATORY | | + + + + + + | Eosinophils | 4.10 | % | [facility] | | | % | | | LABORATORY | | + + + + + + | Basophils % | 0.30 | % | [facility] | | | | | | LABORATORY | | + + + + + + | Neutrophils | 4.06 | 1.90 - 7.40 | [facility] | | | , Absolute | | K/uL | LABORATORY | | + + + + + + | IMMATURE | 0.04Comment: NOTE NEW | 0.00 - 0.07 | [facility] | | | GRANS AB | REFERENCE RANGE | K/uL | LABORATORY | | + + + + + + | Absolute | 0.68 (L) | 1.00 - 3.90 | [facility] | | | Lymphocytes | | K/uL | LABORATORY | | + + + + + + | Absolute | 0.88 (H) | 0.00 - 0.80 | [facility] | | | Monocytes | | K/uL | LABORATORY | | + + + + + + | Eosinophils | 0.24 | 0.00 - 0.50 | [facility] | | | , Absolute | | K/uL | LABORATORY | | + + + + + + | Basophils, | 0.02Comment: Testing | 0.00 - 0.10 | [facility] | | | Absolute | performed at [facility];[address] | K/uL | LABORATORY | | | | [address];[place], [place] | | | | | | [address] | | | | + + + + + + + + | Specimen | + + | Blood | + + + + + + + | Performing | Address | City/State/Zipcode | Phone Number | | Organization | | | | + + + + + | [facility] | [address] | [place] [address] | [phone] | + + + + + Protime INR (12/29/2019 3:53 AM PDT) + + + + + + | Component | Value | Ref Range | Performed | Pathologist | | | | | At | Signature | + + + + + + | INR | 1.3Comment: REFERENCE | | [facility] | | | | RANGE:0.9 - 1.2 | | LABORATORY | | | | NON-ANTICOAGULATED2.0 | | [...] | | | | | performed at [facility] | | | | | | [facility];[place], [place] | | | | | | [address] | | | | + + + + + + + + | Specimen | + + | Blood | + + + + + + + | Performing | Address | City/State/Zipcode | Phone Number | | Organization | | | | + + + + + | [facility] | [address] | [place] [address] | [phone] | + + + + + Basic Metabolic Panel (12/29/2019 3:53 AM PDT) + + + + + + | Component | Value | Ref Range | Performed | Pathologist | | | | | At | Signature | + + + + + + | Na | 138 | 135 - 145 | [facility] | | | | | mmol/L | LABORATORY | | + + + + + + | K | 3.7 | 3.5 - 4.9 | [facility] | | | | | mmol/L | LABORATORY | | + + + + + + | Cl | 103 | 99 - 109 mmol/L | [facility] | | | | | | LABORATORY | | + + + + + + | CO2 | 22 (L) | 23 - 32 mmol/L | [facility] | | | | | | LABORATORY | | + + + + + + | Anion Gap | 17 | 5 - 20 mmol/L | [facility] | | | | | | LABORATORY | | + + + + + + | Glucose | 122 (H) | 65 - 99 mg/dL | [facility] | | | | | | LABORATORY | | + + + + + + | BUN | 89 (H) | 8 - 25 mg/dL | [facility] | | | | | | LABORATORY | | + + + + + + | Creatinine | 3.01 (H) | 0.70 - 1.30 | [facility] | | | | | mg/dL | LABORATORY | | + + + + + + | BUN/Creatin | 30 | | [facility] | | | ine Ratio | | | LABORATORY | | + + + + + + | Calcium | 8.7 | 8.5 - 10.5 | [facility] | | | | | mg/dL | LABORATORY | | + + + + + + | Estimated | 20 (L)Comment: GFR <60: | >60 | [facility] | | | GFR | CHRONIC KIDNEY DISEASE, | mL/min/1.73m2 | LABORATORY | | | | IF FOUND OVER [...] | | | | | performed at [facility] | | | | | | [facility];[place], [place] | | | | | | [address] | | | | + + + + + + + + | Specimen | + + | Blood | + + + + + + + | Performing | Address | City/State/Zipcode | Phone Number | | Organization | | | | + + + + + | [facility] | [address] | [place] [address] | [phone] | + + + + + POC Glucose (12/28/2019 11:27 PM PDT) + + + + + + | Component | Value | Ref Range | Performed | Pathologist | | | | | At | Signature | + + + + + + | Glucose, | 192 (H)Comment: Testing | 65 - 99 mg/dL | [facility] | | | POC | performed at [facility];[address] | | LABORATORY | | | | [address];[place] | | | | | | [address] | | | | + + + + + + + + | Specimen | + + | | + + + + + + + | Performing | Address | City/State/Zipcode | Phone Number | | Organization | | | | + + + + + | [facility] | [address] | [place] [address] | [phone] | + + + + + Hemoglobin and Hematocrit (12/28/2019 10:33 PM PDT) + + + + + + | Component | Value | Ref Range | Performed | Pathologist | | | | | At | Signature | + + + + + + | Hemoglobin | 9.1 (L) | 13.2 - 17.0 | [facility] | | | | | g/dL | LABORATORY | | + + + + + + | Hematocrit | 26.6 (L)Comment: Testing | 39.0 - 50.0 % | [facility] | | | | performed at [facility];[address] | | LABORATORY | | | | [address];[place] | | | | | | [address] | | | | + + + + + + + + | Specimen | + + | Blood | + + + + + + + | Performing | Address | City/State/Zipcode | Phone Number | | Organization | | | | + + + + + | [facility] | [address] | [place] [address] | [phone] | + + + + + POC Glucose (12/28/2019 8:47 PM PDT) + + + + + + | Component | Value | Ref Range | Performed | Pathologist | | | | | At | Signature | + + + + + + | Glucose, | 216 (H)Comment: Testing | 65 - 99 mg/dL | [facility] | | | POC | performed at [facility];[address] | | LABORATORY | | | | [address];[place], [place] | | | | | | [address] | | | | + + + + + + + + | Specimen | + + | | + + + + + + + | Performing | Address | City/State/Zipcode | Phone Number | | Organization | | | | + + + + + | [facility] | [address] | [place] [address] | [phone] | + + + + + Fecal Hemoglobin (12/28/2019 7:20 PM PDT) + + + + + + | Component | Value | Ref Range | Performed | Pathologist | | | | | At | Signature | + + + + + + | FECAL | POSITIVE (A)Comment: | NEG | [facility] | | | OCCULT BLD | Testing performed at | | LABORATORY | | | | [facility];[address];[place] [address] | | | | + + + + + + + + | Specimen | + + | Stool - Stool | | specimen (specimen) | + + + + + + + | Performing | Address | City/State/Zipcode | Phone Number | | Organization | | | | + + + + + | [facility] | [address] | [place] [address] | [phone] | + + + + + POC Glucose (12/28/2019 4:32 PM PDT) + + + + + + | Component | Value | Ref Range | Performed | Pathologist | | | | | At | Signature | + + + + + + | Glucose, | 124 (H)Comment: Testing | 65 - 99 mg/dL | [facility] | | | POC | performed at [facility];[address] | | LABORATORY | | | | [address];[place], [place] | | | | | | [address] | | | | + + + + + + + + | Specimen | + + | | + + + + + + + | Performing | Address | City/State/Zipcode | Phone Number | | Organization | | | | + + + + + | [facility] | [address] | [place] [address] | [phone] | + + + + + Hemoglobin and Hematocrit (12/28/2019 3:11 PM PDT) + + + + + + | Component | Value | Ref Range | Performed | Pathologist | | | | | At | Signature | + + + + + + | Hemoglobin | 9.9 (L) | 13.2 - 17.0 | [facility] | | | | | g/dL | LABORATORY | | + + + + + + | Hematocrit | 28.8 (L)Comment: Testing | 39.0 - 50.0 % | [facility] | | | | performed at [facility];[address] | | LABORATORY | | | | [address];[place] | | | | | | [address] | | | | + + + + + + + + | Specimen | + + | Blood | + + + + + + + | Performing | Address | City/State/Zipcode | Phone Number | | Organization | | | | + + + + + | [facility] | [address] | [place] [address] | [phone] | + + + + + POC Glucose (12/28/2019 11:59 AM PDT) + + + + + + | Component | Value | Ref Range | Performed | Pathologist | | | | | At | Signature | + + + + + + | Glucose, | 163 (H)Comment: Testing | 65 - 99 mg/dL | [facility] | | | POC | performed at [facility];[address] | | LABORATORY | | | | [address];[place], [place] | | | | | | [address] | | | | + + + + + + + + | Specimen | + + | | + + + + + + + | Performing | Address | City/State/Zipcode | Phone Number | | Organization | | | | + + + + + | [facility] | [address] | [place] [address] | [phone] | + + + + + POC Glucose (12/28/2019 7:03 AM PDT) + + + + + + | Component | Value | Ref Range | Performed | Pathologist | | | | | At | Signature | + + + + + + | Glucose, | 153 (H)Comment: Testing | 65 - 99 mg/dL | [facility] | | | POC | performed at [facility];[address] | | LABORATORY | | | | [address];[place] | | | | | | [address] | | | | + + + + + + + + | Specimen | + + | | + + + + + + + | Performing | Address | City/State/Zipcode | Phone Number | | Organization | | | | + + + + + | [facility] | [address] | [place] [address] | [phone] | + + + + + CBC with Differential (12/28/2019 4:20 AM PDT) + + + + + + | Component | Value | Ref Range | Performed | Pathologist | | | | | At | Signature | + + + + + + | WBC | 6.22 | 3.80 - 11.00 | [facility] | | | | | K/uL | LABORATORY | | + + + + + + | RBC | 3.14 (L) | 4.20 - 5.70 | [facility] | | | | | M/uL | LABORATORY | | + + + + + + | Hemoglobin | 9.9 (L) | 13.2 - 17.0 | [facility] | | | | | g/dL | LABORATORY | | + + + + + + | Hematocrit | 29.5 (L) | 39.0 - 50.0 % | [facility] | | | | | | LABORATORY | | + + + + + + | MCV | 93.9 | 80.0 - 100.0 fl | [facility] | | | | | | LABORATORY | | + + + + + + | MCH | 31.5 | 27.0 - 34.0 pg | [facility] | | | | | | LABORATORY | | + + + + + + | MCHC | 33.6 | 32.0 - 35.5 | [facility] | | | | | g/dL | LABORATORY | | + + + + + + | RDW-SD | 53.4 (H) | 37 - 53 fl | [facility] | | | | | | LABORATORY | | + + + + + + | Platelet | 92 (L) | 150 - 400 K/uL | [facility] | | | Count | | | LABORATORY | | + + + + + + | MPV | 11.7Comment: NO NORMAL | fl | [facility] | | | | RANGE ESTABLISHED | | LABORATORY | | + + + + + + | Diff Type | AUTOMATED | | [facility] | | | | | | LABORATORY | | + + + + + + | % nRBC | 0.8 (H) | 0 /100WBC | [facility] | | | | | | LABORATORY | | + + + + + + | % | 72.20 | % | [facility] | | | Neutrophils | | | LABORATORY | | + + + + + + | IMMATURE | 0.60 | % | [facility] | | | GRANULOCYTE | | | LABORATORY | | + + + + + + | % | 10.30 | % | [facility] | | | Lymphocytes | | | LABORATORY | | + + + + + + | Monocyte % | 13.30 | % | [facility] | | | | | | LABORATORY | | + + + + + + | Eosinophils | 3.40 | % | [facility] | | | % | | | LABORATORY | | + + + + + + | Basophils % | 0.20 | % | [facility] | | | | | | LABORATORY | | + + + + + + | Neutrophils | 4.49 | 1.90 - 7.40 | [facility] | | | , Absolute | | K/uL | LABORATORY | | + + + + + + | IMMATURE | 0.04Comment: NOTE NEW | 0.00 - 0.07 | [facility] | | | GRANS AB | REFERENCE RANGE | K/uL | LABORATORY | | + + + + + + | Absolute | 0.64 (L) | 1.00 - 3.90 | [facility] | | | Lymphocytes | | K/uL | LABORATORY | | + + + + + + | Absolute | 0.83 (H) | 0.00 - 0.80 | [facility] | | | Monocytes | | K/uL | LABORATORY | | + + + + + + | Eosinophils | 0.21 | 0.00 - 0.50 | [facility] | | | , Absolute | | K/uL | LABORATORY | | + + + + + + | Basophils, | 0.01Comment: Testing | 0.00 - 0.10 | [facility] | | | Absolute | performed at [facility], [address] | K/uL | LABORATORY | | | | [address], | | | | | | [place] [address] | | | | + + + + + + + + | Specimen | + + | Blood | + + + + + + + | Performing | Address | City/State/Zipcode | Phone Number | | Organization | | | | + + + + + | [facility] | [address] | [place] [address] | [phone] | + + + + + Basic Metabolic Panel (12/28/2019 4:20 AM PDT) + + + + + + | Component | Value | Ref Range | Performed | Pathologist | | | | | At | Signature | + + + + + + | Na | 138 | 135 - 145 | [facility] | | | | | mmol/L | LABORATORY | | + + + + + + | K | 3.9 | 3.5 - 4.9 | [facility] | | | | | mmol/L | LABORATORY | | + + + + + + | Cl | 104 | 99 - 109 mmol/L | [facility] | | | | | | LABORATORY | | + + + + + + | CO2 | 22 (L) | 23 - 32 mmol/L | [facility] | | | | | | LABORATORY | | + + + + + + | Anion Gap | 16 | 5 - 20 mmol/L | [facility] | | | | | | LABORATORY | | + + + + + + | Glucose | 124 (H) | 65 - 99 mg/dL | [facility] | | | | | | LABORATORY | | + + + + + + | BUN | 102 (H) | 8 - 25 mg/dL | [facility] | | | | | | LABORATORY | | + + + + + + | Creatinine | 3.7 (H) | 0.70 - 1.30 | [facility] | | | | | mg/dL | LABORATORY | | + + + + + + | BUN/Creatin | 28 | | [facility] | | | ine Ratio | | | LABORATORY | | + + + + + + | Calcium | 8.5 | 8.5 - 10.5 | [facility] | | | | | mg/dL | LABORATORY | | + + + + + + | Estimated | 16 (L)Comment: GFR <60: | >60 | [facility] | | | GFR | CHRONIC KIDNEY DISEASE, | mL/min/1.73m2 | LABORATORY | | | | IF FOUND OVER [...] | | | | | | MDRD IDCA traceable | | | | | | equation.Testing | | | | | | performed at [facility], [address] | | | | | | [facility], | | | | | | [place] [address] | | | | + + + + + + + + | Specimen | + + | Blood | + + + + + + + | Performing | Address | City/State/Zipcode | Phone Number | | Organization | | | | + + + + + | [facility] | [address] | [place] [address] | [phone] | + + + + + POC Glucose (12/27/2019 8:44 PM PDT) + + + + + + | Component | Value | Ref Range | Performed | Pathologist | | | | | At | Signature | + + + + + + | Glucose, | 191 (H)Comment: Testing | 65 - 99 mg/dL | [facility] | | | POC | performed at [facility];[address] | | LABORATORY | | | | [address];[place] | | | | | | [address] | | | | + + + + + + + + | Specimen | + + | | + + + + + + + | Performing | Address | City/State/Zipcode | Phone Number | | Organization | | | | + + + + + | [facility] | [address] | [place] [address] | [phone] | + + + + + POC Glucose (12/27/2019 3:30 PM PDT) + + + + + + | Component | Value | Ref Range | Performed | Pathologist | | | | | At | Signature | + + + + + + | Glucose, | 156 (H)Comment: Testing | 65 - 99 mg/dL | [facility] | | | POC | performed at [facility];[address] | | LABORATORY | | | | [address];[place] | | | | | | [address] | | | | + + + + + + + + | Specimen | + + | | + + + + + + + | Performing | Address | City/State/Zipcode | Phone Number | | Organization | | | | + + + + + | [facility] | [address] | [place] [address] | [phone] | + + + + + Red Blood Cells (PRBC) - Crossmatch (12/27/2019 2:31 PM PDT) + + + + + + | Component | Value | Ref Range | Performed | Pathologist | | | | | At | Signature | + + + + + + | Product | RED CELL GROUP | | [facility] | | | Code | | | LABORATORY | | + + + + + + | Units | 2 | | [facility] | | | ordered | | | LABORATORY | | + + + + + + | BLOOD BANK | ORDER RECEIVED IN BLOOD | | [facility] | | | COMMENT | BANK. | | LABORATORY | | + + + + + + | BLOOD BANK | Testing performed at | | [facility] | | | COMMENT | [facility];[address] | | LABORATORY | | | | [address];[place] [address] | | | | + + + + + + + + | Specimen | + + | | + + + + + + + | Performing | Address | City/State/Zipcode | Phone Number | | Organization | | | | + + + + + | [facility] | [address] | [place] [address] | [phone] | + + + + + Type and Screen (12/27/2019 2:31 PM PDT) + + + + + + | Component | Value | Ref Range | Performed | Pathologist | | | | | At | Signature | + + + + + + | ABO Rh | A POSITIVE | | [facility] | | | | | | LABORATORY | | + + + + + + | Antibody | NEGATIVE | | [facility] | | | Screen | | | LABORATORY | | + + + + + + | BB BAND | [id number] | | [facility] | | | | | | LABORATORY | | + + + + + + | UNIT # | [id number] | | [facility] | | | | | | LABORATORY | | + + + + + + | Product | LEUKODEPLETED PC | | [facility] | | | Code | | | LABORATORY | | + + + + + + | Unit | 00 | | [facility] | | | Division | | | LABORATORY | | + + + + + + | Unit Status | ISSUED,FINAL | | [facility] | | | | | | LABORATORY | | + + + + + + | Transfusion | OK TO TRANSFUSE | | [facility] | | | Status | | | LABORATORY | | + + + + + + | CROSSMATCH | COMPATIBLE | | [facility] | | | RESULT | | | LABORATORY | | + + + + + + | UNIT # | [id number] | | [facility] | | | | | | LABORATORY | | + + + + + + | Product | LEUKODEPLETED PC | | [facility] | | | Code | | | LABORATORY | | + + + + + + | Unit | 00 | | [facility] | | | Division | | | LABORATORY | | + + + + + + | Unit Status | ISSUED,FINAL | | [facility] | | | | | | LABORATORY | | + + + + + + | Transfusion | OK TO TRANSFUSE | | [facility] | | | Status | | | LABORATORY | | + + + + + + | CROSSMATCH | COMPATIBLETesting | | [facility] | | | RESULT | performed at [facility] | | LABORATORY | | | | [address];[place], [place] | | | | | | [address] | | | | + + + + + + + + | Specimen | + + | Blood | + + + + + + + | Performing | Address | City/State/Zipcode | Phone Number | | Organization | | | | + + + + + | [facility] | [address] | [place] [address] | [phone] | + + + + + POC Glucose (12/27/2019 7:25 AM PDT) + + + + + + | Component | Value | Ref Range | Performed | Pathologist | | | | | At | Signature | + + + + + + | Glucose, | 186 (H)Comment: Testing | 65 - 99 mg/dL | [facility] | | | POC | performed at [facility];[address] | | LABORATORY | | | | [address];[place] | | | | | | [address] | | | | + + + + + + + + | Specimen | + + | | + + + + + + + | Performing | Address | City/State/Zipcode | Phone Number | | Organization | | | | + + + + + | [facility] | [address] | [place] [address] | [phone] | + + + + + CBC with Differential (12/27/2019 5:04 AM PDT) + + + + + + | Component | Value | Ref Range | Performed | Pathologist | | | | | At | Signature | + + + + + + | WBC | 5.57 | 3.80 - 11.00 | [facility] | | | | | K/uL | LABORATORY | | + + + + + + | RBC | 2.37 (L) | 4.20 - 5.70 | [facility] | | | | | M/uL | LABORATORY | | + + + + + + | Hemoglobin | 7.8 (L) | 13.2 - 17.0 | [facility] | | | | | g/dL | LABORATORY | | + + + + + + | Hematocrit | 22.9 (L) | 39.0 - 50.0 % | [facility] | | | | | | LABORATORY | | + + + + + + | MCV | 96.6 | 80.0 - 100.0 fl | [facility] | | | | | | LABORATORY | | + + + + + + | MCH | 32.9 | 27.0 - 34.0 pg | [facility] | | | | | | LABORATORY | | + + + + + + | MCHC | 34.1 | 32.0 - 35.5 | [facility] | | | | | g/dL | LABORATORY | | + + + + + + | RDW-SD | 48.4 | 37 - 53 fl | [facility] | | | | | | LABORATORY | | + + + + + + | Platelet | 85 (L) | 150 - 400 K/uL | [facility] | | | Count | | | LABORATORY | | + + + + + + | MPV | 11.5Comment: NO NORMAL | fl | [facility] | | | | RANGE ESTABLISHED | | LABORATORY | | + + + + + + | Diff Type | AUTOMATED | | [facility] | | | | | | LABORATORY | | + + + + + + | % nRBC | 0.9 (H) | 0 /100WBC | [facility] | | | | | | LABORATORY | | + + + + + + | % | 65.70 | % | [facility] | | | Neutrophils | | | LABORATORY | | + + + + + + | IMMATURE | 0.50 | % | [facility] | | | GRANULOCYTE | | | LABORATORY | | + + + + + + | % | 12.20 | % | [facility] | | | Lymphocytes | | | LABORATORY | | + + + + + + | Monocyte % | 14.90 | % | [facility] | | | | | | LABORATORY | | + + + + + + | Eosinophils | 6.30 | % | [facility] | | | % | | | LABORATORY | | + + + + + + | Basophils % | 0.40 | % | [facility] | | | | | | LABORATORY | | + + + + + + | Neutrophils | 3.66 | 1.90 - 7.40 | [facility] | | | , Absolute | | K/uL | LABORATORY | | + + + + + + | IMMATURE | 0.03Comment: NOTE NEW | 0.00 - 0.07 | [facility] | | | GRANS AB | REFERENCE RANGE | K/uL | LABORATORY | | + + + + + + | Absolute | 0.68 (L) | 1.00 - 3.90 | [facility] | | | Lymphocytes | | K/uL | LABORATORY | | + + + + + + | Absolute | 0.83 (H) | 0.00 - 0.80 | [facility] | | | Monocytes | | K/uL | LABORATORY | | + + + + + + | Eosinophils | 0.35 | 0.00 - 0.50 | [facility] | | | , Absolute | | K/uL | LABORATORY | | + + + + + + | Basophils, | 0.02Comment: Testing | 0.00 - 0.10 | [facility] | | | Absolute | performed at [facility], [address] | K/uL | LABORATORY | | | | [facility], | | | | | | [place] [address] | | | | + + + + + + + + | Specimen | + + | | + + + + + + + | Performing | Address | City/State/Zipcode | Phone Number | | Organization | | | | + + + + + | [facility] | [address] | [place] [address] | [phone] | + + + + + Procalcitonin (12/27/2019 5:04 AM PDT) + + + + + + | Component | Value | Ref Range | Performed | Pathologist | | | | | At | Signature | + + + + + + | PROCALCITON | 0.41Comment: | <0.5 ng/mL | [facility] | | | IN | INTERPRETIVE | | LABORATORY | | | | INFORMATION: | | | | | | PROCALCITONIN PCT <= | | | | | | 0.5 ng/mL: Low risk | | | | | | for progression to | | | | | | severe systemic | | | | | | bacterial infection | | | | | | (severe sepsis/septic | | | | | | shock). Does not | | | | | | exclude an infection, | | | | | | because localized | | | | | | infections may be | | | | | | associated with such low | | | | | | levels. If PCT is | | | | | | measured very early | | | | | | after bacterial | | | | | | challenge (usually <6 | | | | | | hours), results may | | | | | | still be low and | | | | | | should re-assess PCT | | | | | | 6-24 hours later. PCT | | | | | | >0.5 and <= 2 ng/mL: | | | | | | Moderate risk for | | | | | | progression to severe | | | | | | systemic infection | | | | | | (severe sepsis/septic | | | | | | shock). Other | | | | | | conditions are known | | | | | | to elevate PCT, patient | | | | | | should be closely | | | | | | monitored both | | | | | | clinically and by | | | | | | re-assessing PCT | | | | | | within 6-24 hours. PCT > | | | | | | 2 ng/mL: High | | | | | | likelihood for | | | | | | progression to severe | | | | | | systemic bacterial | | | | | | infection (severe | | | | | | sepsis/septic shock). | | | | | | PCT >= 10 ng/mL: | | | | | | High likelihood of | | | | | | severe sepsis or septic | | | | | | shock.Testing performed | | | | | | at [facility];[address] [place] [address] | | | | | | [facility];[place] [address] | | | | + + + + + + + + | Specimen | + + | Blood | + + + + + + + | Performing | Address | City/State/Zipcode | Phone Number | | Organization | | | | + + + + + | [facility] | [address] | [place] [address] | [phone] | + + + + + Basic Metabolic Panel (12/27/2019 5:04 AM PDT) + + + + + + | Component | Value | Ref Range | Performed | Pathologist | | | | | At | Signature | + + + + + + | Na | 137 | 135 - 145 | [facility] | | | | | mmol/L | LABORATORY | | + + + + + + | K | 4.0 | 3.5 - 4.9 | [facility] | | | | | mmol/L | LABORATORY | | + + + + + + | Cl | 104 | 99 - 109 mmol/L | [facility] | | | | | | LABORATORY | | + + + + + + | CO2 | 24 | 23 - 32 mmol/L | [facility] | | | | | | LABORATORY | | + + + + + + | Anion Gap | 13 | 5 - 20 mmol/L | [facility] | | | | | | LABORATORY | | + + + + + + | Glucose | 118 (H) | 65 - 99 mg/dL | [facility] | | | | | | LABORATORY | | + + + + + + | BUN | 115 (H) | 8 - 25 mg/dL | [facility] | | | | | | LABORATORY | | + + + + + + | Creatinine | 4.2 (H) | 0.70 - 1.30 | [facility] | | | | | mg/dL | LABORATORY | | + + + + + + | BUN/Creatin | 27 | | [facility] | | | ine Ratio | | | LABORATORY | | + + + + + + | Calcium | 8.1 (L) | 8.5 - 10.5 | [facility] | | | | | mg/dL | LABORATORY | | + + + + + + | Estimated | 13 (L)Comment: GFR <60: | >60 | [facility] | | | GFR | CHRONIC KIDNEY DISEASE, | mL/min/1.73m2 | LABORATORY | | | | IF FOUND OVER [...] | | | | | | MDRD IDCA traceable | | | | | | equation.Testing | | | | | | performed at [facility], [address] | | | | | | [facility], | | | | | | [place] [address] | | | | + + + + + + + + | Specimen | + + | Blood | + + + + + + + | Performing | Address | City/State/Zipcode | Phone Number | | Organization | | | | + + + + + | [facility] | [address] | [place] [address] | [phone] | + + + + + Vitamin D, Deficiency Screen (25-Hydroxy) (12/27/2019 5:04 AM PDT) + + + + + + | Component | Value | Ref Range | Performed | Pathologist | | | | | At | Signature | + + + + + + | Vit D, | 25.2 (L)Comment: Vitamin | 30.0 - 100.0 | [facility] | | | 25-Hydroxy | D deficiency has been | ng/mL | LABORATORY | | | | defined by the [place] | | | | | | ofMedicine and an | | | | | | Endocrine Society | | | | | | practice guideline as | | | | | | alevel of serum 25-OH | | | | | | vitamin D less than 20 | | | | | | ng/mL (1,2).The | | | | | | Endocrine Society went | | | | | | on to further define | | | | | | vitamin Dinsufficiency | | | | | | as a level between 21 | | | | | | and 29 ng/mL (2).1. IOM | | | | | | ([place] of Medicine). | | | | | | 2009. Dietary reference | | | | | | intakes for calcium | | | | | | and D. [place]: | | | | | | The National Academies | | | | | | Press.2. Hernan MF, | | | | | | Sushil [place], | | | | | | Tri DUKES, et | | | | | | al. Evaluation, | | | | | | treatment, and | | | | | | prevention of vitamin D | | | | | | deficiency: an | | | | | | Endocrine Society | | | | | | clinical practice | | | | | | guideline. JCEM. 2010 | | | | | | Feb; | | | | | | 96(7):1911-30.Testing | | | | | | performed at [facility], | | | | | | [address], | | | | | | [facility] [address] | | | | + + + + + + + + | Specimen | + + | Blood | + + + + + + + | Performing | Address | City/State/Zipcode | Phone Number | | Organization | | | | + + + + + | [facility] | [address] | [place] [address] | [phone] | + + + + + Potassium (12/27/2019 12:08 AM PDT) + + + + + + | Component | Value | Ref Range | Performed | Pathologist | | | | | At | Signature | + + + + + + | K | 4.0Comment: Testing | 3.5 - 4.9 | [facility] | | | | performed at [facility];[address] | mmol/L | LABORATORY | | | | [address];[place], [place] | | | | | | [address] | | | | + + + + + + + + | Specimen | + + | Blood | + + + + + + + | Performing | Address | City/State/Zipcode | Phone Number | | Organization | | | | + + + + + | [facility] | [address] | [place] [address] | [phone] | + + + + + Magnesium (12/27/2019 12:08 AM PDT) + + + + + + | Component | Value | Ref Range | Performed | Pathologist | | | | | At | Signature | + + + + + + | Magnesium | 2.2Comment: Testing | 1.7 - 2.4 mg/dL | [facility] | | | | performed at [facility];[address] | | LABORATORY | | | | [address];[place], [place] | | | | | | [address] | | | | + + + + + + + + | Specimen | + + | Blood | + + + + + + + | Performing | Address | City/State/Zipcode | Phone Number | | Organization | | | | + + + + + | [facility] | [address] | [place] [address] | [phone] | + + + + + ECG 12 lead (12/26/2019 11:45 PM PDT) + + + + + + | Component | Value | Ref Range | Performed | Pathologist | | | | | At | Signature | + + + + + + | VENTRICULAR | 70 | BPM | [facility] | | | RATE EKG | | | | | + + + + + + | ATRIAL RATE | 52 | BPM | [facility] | | + + + + + + | QRS | 178 | ms | [facility] | | | DURATION | | | | | + + + + + + | Q-T | 476 | ms | [facility] | | | INTERVAL | | | | | + + + + + + | Q-T | 514 | ms | [facility] | | | INTERVAL | | | | | | (CORRECTED) | | | | | + + + + + + | QRS AXIS | -134 | degrees | [facility] | | + + + + + + | T AXIS | 78 | degrees | [facility] | | + + + + + + | INTERPRETAT | Ventricular-paced rhythm | | [facility] | | | ION TEXT | with frequent Premature | | | | | | ventricular | | | | | | complexesAbnormal | | | | | | ECGWhen compared with | | | | | | ECG of 24-DEC-2019 | | | | | | 14:26,Premature | | | | | | ventricular complexes | | | | | | are now PresentVent. | | | | | | rate has increased BY | | | | | | 10 BPMConfirmed by | | | | | | YANIV ROONEY ([id number]) | | | | | | on 12/28/2019 9:49:02 AM | | | | + + + + + + + + | Specimen | + + | | + + + + + | Narrative | Performed At | + + + | | | + + + + +---------+ + + | Performing | Address | City/State/Zipcode | Phone Number | | Organization | | | | + +---------+ + + | [facility] | | | | + +---------+ + + POC Glucose (12/26/2019 8:04 PM PDT) + + + + + + | Component | Value | Ref Range | Performed | Pathologist | | | | | At | Signature | + + + + + + | Glucose, | 147 (H)Comment: Testing | 65 - 99 mg/dL | [facility] | | | POC | performed at [facility];[address] | | LABORATORY | | | | [address];[place], [place] | | | | | | [address] | | | | + + + + + + + + | Specimen | + + | | + + + + + + + | Performing | Address | City/State/Zipcode | Phone Number | | Organization | | | | + + + + + | [facility] | [address] | [place] [address] | [phone] | + + + + + POC Glucose (12/26/2019 5:02 PM PDT) + + + + + + | Component | Value | Ref Range | Performed | Pathologist | | | | | At | Signature | + + + + + + | Glucose, | 154 (H)Comment: Testing | 65 - 99 mg/dL | [facility] | | | POC | performed at [facility];[address] | | LABORATORY | | | | [address];[place] | | | | | | [address] | | | | + + + + + + + + | Specimen | + + | | + + + + + + + | Performing | Address | City/State/Zipcode | Phone Number | | Organization | | | | + + + + + | [facility] | [address] | [place] [address] | [phone] | + + + + + Complement C4 Ag (12/26/2019 12:33 PM PDT) + + + + + + | Component | Value | Ref Range | Performed | Pathologist | | | | | At | Signature | + + + + + + | C4 | 15Comment: Testing | 14 - 44 mg/dL | [facility] | | | COMPLEMENT | performed at [facility], | | LABORATORY | | | | [address], | | | | | | [facility] [address] | | | | + + + + + + + + | Specimen | + + | | + + + + + + + | Performing | Address | City/State/Zipcode | Phone Number | | Organization | | | | + + + + + | [facility] | [address] | [place] [address] | [phone] | + + + + + Complement C3 Ag (12/26/2019 12:33 PM PDT) + + + + + + | Component | Value | Ref Range | Performed | Pathologist | | | | | At | Signature | + + + + + + | C3 | 53 (L)Comment: Testing | 82 - 167 mg/dL | [facility] | | | COMPLEMENT | performed at [place], | | LABORATORY | | | | [address], | | | | | | [facility] [address] | | | | + + + + + + + + | Specimen | + + | | + + + + + + + | Performing | Address | City/State/Zipcode | Phone Number | | Organization | | | | + + + + + | [facility] | [address] | [place] [address] | [phone] | + + + + + POC Glucose (12/26/2019 11:15 AM PDT) + + + + + + | Component | Value | Ref Range | Performed | Pathologist | | | | | At | Signature | + + + + + + | Glucose, | 161 (H)Comment: Testing | 65 - 99 mg/dL | [facility] | | | POC | performed at [facility];[address] | | LABORATORY | | | | [address];[place], [place] | | | | | | [address] | | | | + + + + + + + + | Specimen | + + | | + + + + + + + | Performing | Address | City/State/Zipcode | Phone Number | | Organization | | | | + + + + + | [facility] | [address] | [place] [address] | [phone] | + + + + + POC Glucose (12/26/2019 7:38 AM PDT) + + + + + + | Component | Value | Ref Range | Performed | Pathologist | | | | | At | Signature | + + + + + + | Glucose, | 138 (H)Comment: Testing | 65 - 99 mg/dL | [facility] | | | POC | performed at [facility];[address] | | LABORATORY | | | | [address];[place] | | | | | | [address] | | | | + + + + + + + + | Specimen | + + | | + + + + + + + | Performing | Address | City/State/Zipcode | Phone Number | | Organization | | | | + + + + + | [facility] | [address] | [place] [address] | [phone] | + + + + + Parathyroid Hormone, Intraoperative (12/26/2019 4:25 AM PDT) + + + + + + | Component | Value | Ref Range | Performed | Pathologist | | | | | At | Signature | + + + + + + | PTH Intact | 167.0 (H)Comment: | 8.7 - 79.6 | [facility] [facility] | | | | Testing performed at | pg/mL | LABORATORY | | | | [facility];[address] | | | [address];[place] [address] | | | | + + + + + + + + | Specimen | + + | | + + + + + + + | Performing | Address | City/State/Zipcode | Phone Number | | Organization | | | | + + + + + | [facility] | [address] | [place] [address] | [phone] | + + + + + Renal Function Panel (12/26/2019 4:25 AM PDT) + + + + + + | Component | Value | Ref Range | Performed | Pathologist | | | | | At | Signature | + + + + + + | Na | 134 (L) | 135 - 145 | [facility] | | | | | mmol/L | LABORATORY | | + + + + + + | K | 5.0 (H) | 3.5 - 4.9 | [facility] | | | | | mmol/L | LABORATORY | | + + + + + + | Cl | 103 | 99 - 109 mmol/L | [facility] | | | | | | LABORATORY | | + + + + + + | CO2 | 22 (L) | 23 - 32 mmol/L | [facility] | | | | | | LABORATORY | | + + + + + + | Anion Gap | 14 | 5 - 20 mmol/L | [facility] | | | | | | LABORATORY | | + + + + + + | Glucose | 118 (H) | 65 - 99 mg/dL | [facility] | | | | | | LABORATORY | | + + + + + + | BUN | 116 (H) | 8 - 25 mg/dL | [facility] | | | | | | LABORATORY | | + + + + + + | Creatinine | 4.4 (H) | 0.70 - 1.30 | [facility] | | | | | mg/dL | LABORATORY | | + + + + + + | Calcium | 8.3 (L) | 8.5 - 10.5 | [facility] | | | | | mg/dL | LABORATORY | | + + + + + + | Albumin | 3.3 | 3.3 - 4.8 g/dL | [facility] | | | | | | LABORATORY | | + + + + + + | Phosphorus | 5.2 (H) | 2.3 - 4.8 mg/dL | [facility] | | | | | | LABORATORY | | + + + + + + | Estimated | 13 (L)Comment: GFR <60: | >60 | [facility] | | | GFR | CHRONIC KIDNEY DISEASE, | mL/min/1.73m2 | LABORATORY | | | | IF FOUND OVER [...] | | | | | | MDRD IDCA traceable | | | | | | equation.Testing | | | | | | performed at [facility], [address] | | | | | [facility], | | | | | | [place] [address] | | | | + + + + + + + + | Specimen | + + | Blood | + + + + + + + | Performing | Address | City/State/Zipcode | Phone Number | | Organization | | | | + + + + + | [facility] | [address] | [place] [address] | [phone] | + + + + + POC Glucose (12/25/2019 8:53 PM PDT) + + + + + + | Component | Value | Ref Range | Performed | Pathologist | | | | | At | Signature | + + + + + + | Glucose, | 169 (H)Comment: Testing | 65 - 99 mg/dL | [facility] | | | POC | performed at [facility];[address] | | LABORATORY | | | | [address];[place], [place] | | | | | | [address] | | | | + + + + + + + + | Specimen | + + | | + + + + + + + | Performing | Address | City/State/Zipcode | Phone Number | | Organization | | | | + + + + + | [facility] | [address] | [place] [address] | [phone] | + + + + + POC Glucose (12/25/2019 5:13 PM PDT) + + + + + + | Component | Value | Ref Range | Performed | Pathologist | | | | | At | Signature | + + + + + + | Glucose, | 133 (H)Comment: Testing | 65 - 99 mg/dL | [facility] | | | POC | performed at [facility];[address] | | LABORATORY | | | | [address];[place], [place] | | | | | | [address] | | | | + + + + + + + + | Specimen | + + | | + + + + + + + | Performing | Address | City/State/Zipcode | Phone Number | | Organization | | | | + + + + + | [facility] | [address] | [place] [address] | [phone] | + + + + + ECHO Complete (12/25/2019 3:51 PM PDT) + + + + + + | Component | Value | Ref Range | Performed | Pathologist | | | | | At | Signature | + + + + + + | LVEF-TTE | 55 | % | [facility] | | | TRANSTHORAC | | | | | | IC ECHO | | | | | + + + + + + | RA PRESSURE | 15 | mmHg | [facility] | | + + + + + + | LVIDd | 5.3 | cm | [facility] | | + + + + + + | FS | 34 | % | [facility] | | + + + + + + | LA volume | 121.89 | mL | [facility] | | + + + + + + | Ascending | 3.82 | cm | [facility] | | | aorta | | | | | + + + + + + | AV | 522.63 | msec | [facility] | | | regurgitati | | | | | | on pressure | | | | | | 1/2 time | | | | | + + + + + + | AV mean | 35.19 | mmHg | [facility] | | | gradient | | | | | + + + + + + | Aortic | 3.02 | cm2 | [facility] | | | Valve Area | | | | | | by | | | | | | Continuity | | | | | | VTI | | | | | + + + + + + | PV peak | 1.32 | mmHg | [facility] | | | gradient | | | | | + + + + + + | LVOT | 2.39 | cm | [facility] | | | diameter | | | | | + + + + + + | LVOT peak | 78.71 | cm/s | [facility] | | | naomi | | | | | + + + + + + | LVOT peak | 15.13 | cm | [facility] | | | VTI | | | | | + + + + + + | AV peak naomi | 129.87 | cm/s | [facility] | | + + + + + + | AV VTI | 22.48 | cm | [facility] | | + + + + + + | AV peak | 6.75 | mmHg | [facility] | | | gradient | | | | | + + + + + + | TV peak | 1.48 | mmHg | [facility] | | | gradient | | | | | + + + + + + | PV mean | 0.41 | mmHg | [facility] | | | gradient | | | | | + + + + + + | LA Volume | 72 | mL/m2 | [facility] | | | Index | | | | | + + + + + + | AV LVOT | 2.48 | mmHg | [facility] | | | Peak | | | | | | Gradient | | | | | + + + + + + | AV LVOT | 1.05 | mmHg | [facility] | | | Mean | | | | | | Gradient | | | | | + + + + + + | TR Peak | 64 | mmHg | [facility] | | | Gradient | | | | | + + + + + + | RV Free | 11.2 | cm/s | [facility] | | | Wall Peak | | | | | | S' | | | | | + + + + + + | TR Velocity | 400.4 | cm/s | [facility] | | + + + + + + | PI Peak | 57.54 | cm/s | [facility] | | | Velocity | | | | | + + + + + + | RV | 4.88 | cm | [facility] | | | Diastolic | | | | | | Basal | | | | | | Diameter | | | | | + + + + + + | LV | 55 | % | [facility] | | | Tucker's | | | | | | Biplane EF | | | | | + + + + + + | LV ED | 70.4 | ml | [facility] | | | Volume | | | | | | (Tucker's) | | | | | + + + + + + | LV ED | 41 | ml/m2 | [facility] | | | Volume | | | | | | Index | | | | | + + + + + + | LV ES | 31.44 | ml | [facility] | | | Volume | | | | | + + + + + + | LVOT Mean | 46.08 | cm/s | [facility] | | | Velocity | | | | | + + + + + + | RVSP | 79 | mmHg | [facility] | | | Estimated | | | | | + + + + + + | MV | 138.12 | msec | [facility] | | | Deceleratio | | | | | | n Time | | | | | + + + + + + | MV E/A | 1.25 | | [facility] | | | Ratio | | | | | + + + + + + | MV Peak | 62.69 | cm/s | [facility] | | | A-Wave | | | | | + + + + + + | MV Peak | 78.54 | cm/s | [facility] | | | E-Wave | | | | | + + + + + + | TV | 467.99 | msec | [facility] | | | Deceleratio | | | | | | n Time | | | | | + + + + + + | TV Peak | 0.72 | cm/s | [facility] | | | A-Wave | | | | | + + + + + + | TV Peak | 60.88 | cm/s | [facility] | | | E-Wave | | | | | + + + + + + | PV Mean | 28.79 | cm/s | [facility] | | | Velocity | | | | | + + + + + + | AV | 1,802.18 | msec | [facility] | | | Deceleratio | | | | | | n Time | | | | | + + + + + + | AV Mean | 290.99 | cm/s | [facility] | | | Velocity | | | | | + + + + + + | RA Area | 31.69 | cm2 | [facility] | | + + + + + + | LA/Aorta | 1.2 | | [facility] | | | Ratio | | | | | + + + + + + | LA Major | 0.2248 | cm | [facility] | | + + + + + + | LV ES | 18 | ml/m2 | [facility] | | | Volume | | | | | | Index | | | | | + + + + + + | Cardiac | 4.41 | l/min | [facility] | | | Output | | | | | + + + + + + | Cardiac | 2.59 | l/min/m2 | [facility] | | | Index | | | | | + + + + + + | Vitals | 65 | | [facility] | | | Heart Rate | | | | | | Rest | | | | | + + + + + + | Vitals | 165.0 | | [facility] | | | Height | | | | | + + + + + + | Vitals | 63.50 | | [facility] | | | Weight | | | | | + + + + + + | Aortic Root | 4.1 | cm | [facility] | | | Diameter | | | | | + + + + + + | IVS | 0.97 | cm | [facility] | | | Diastolic | | | | | | Thickness | | | | | | MM | | | | | + + + + + + | LVPW | 0.87 | cm | [facility] | | | Diastolic | | | | | | Thickness | | | | | | MM | | | | | + + + + + + | IVS | 1.5 | cm | [facility] | | | Systolic | | | | | | Thickness | | | | | | MM | | | | | + + + + + + | LV Systolic | 3.49 | cm | [facility] | | | Diameter | | | | | | MM | | | | | + + + + + + | LVPW | 1.61 | cm | [facility] | | | Systolic | | | | | | Thickness | | | | | | MM | | | | | + + + + + + | AV Cusp | 2.17 | cm | [facility] | | | Seperation | | | | | | MM | | | | | + + + + + + | LA Systolic | 4.9 | cm | [facility] | | | Diameter | | | | | | MM | | | | | + + + + + + | TAPSE | 1.33 | cm | [facility] | | + + + + + + + + | Specimen | + + | | + + + + + | Narrative | Performed At | + + + | Normal left | [facility] | | ventricular systolic function. The left ventricular ejection fraction | | | is 55%. Mild aortic regurgitation. Mild to moderate mitral | | | regurgitation. Severe eccentric tricuspid regurgitation. There is | | | severe pulmonary hypertension. Estimated right ventricular systolic | | | pressure (RVSP) is 79 mmHg. | | |systolic pressure (RVSP) is 79 mmHg. | | | | | + + + + +---------+ + + | Performing | Address | City/State/Zipcode | Phone Number | | Organization | | | | + +---------+ + + | [facility] | | | | + +---------+ + + POC Glucose (12/25/2019 11:34 AM PDT) + + + + + + | Component | Value | Ref Range | Performed | Pathologist | | | | | At | Signature | + + + + + + | Glucose, | 148 (H)Comment: Testing | 65 - 99 mg/dL | [facility] | | | POC | performed at [facility];[address] | | LABORATORY | | | | [address];[place] | | | | | | [address] | | | | + + + + + + + + | Specimen | + + | | + + + + + + + | Performing | Address | City/State/Zipcode | Phone Number | | Organization | | | | + + + + + | [facility] | [address] | [place] [address] | [phone] | + + + + + POC Glucose (12/25/2019 7:56 AM PDT) + + + + + + | Component | Value | Ref Range | Performed | Pathologist | | | | | At | Signature | + + + + + + | Glucose, | 136 (H)Comment: Testing | 65 - 99 mg/dL | [facility] | | | POC | performed at [facility];[address] | | LABORATORY | | | | [address];[place] | | | | | | [address] | | | | + + + + + + + + | Specimen | + + | | + + + + + + + | Performing | Address | City/State/Zipcode | Phone Number | | Organization | | | | + + + + + | [facility] | [address] | [place] [address] | [phone] | + + + + + CK Total (12/25/2019 4:25 AM PDT) + + + + + + | Component | Value | Ref Range | Performed | Pathologist | | | | | At | Signature | + + + + + + | CK TOTAL | 104Comment: Testing | 55 - 400 U/L | [facility] | | | | performed at [facility];[address] | | LABORATORY | | | | [address];[place] | | | | | | [address] | | | | + + + + + + + + | Specimen | + + | Blood | + + + + + + + | Performing | Address | City/State/Zipcode | Phone Number | | Organization | | | | + + + + + | [facility] | [address] | [place] [address] | [phone] | + + + + + Renal Function Panel (12/25/2019 4:25 AM PDT) + + + + + + | Component | Value | Ref Range | Performed | Pathologist | | | | | At | Signature | + + + + + + | Na | 134 (L) | 135 - 145 | [facility] | | | | | mmol/L | LABORATORY | | + + + + + + | K | 5.1 (H) | 3.5 - 4.9 | [facility] | | | | | mmol/L | LABORATORY | | + + + + + + | Cl | 103 | 99 - 109 mmol/L | [facility] | | | | | | LABORATORY | | + + + + + + | CO2 | 22 (L) | 23 - 32 mmol/L | [facility] | | | | | | LABORATORY | | + + + + + + | Anion Gap | 14 | 5 - 20 mmol/L | [facility] | | | | | | LABORATORY | | + + + + + + | Glucose | 103 (H) | 65 - 99 mg/dL | [facility] | | | | | | LABORATORY | | + + + + + + | BUN | 107 (H) | 8 - 25 mg/dL | [facility] | | | | | | LABORATORY | | + + + + + + | Creatinine | 4.4 (H) | 0.70 - 1.30 | [facility] | | | | | mg/dL | LABORATORY | | + + + + + + | Calcium | 8.1 (L) | 8.5 - 10.5 | [facility] | | | | | mg/dL | LABORATORY | | + + + + + + | Albumin | 2.7 (L) | 3.3 - 4.8 g/dL | [facility] | | | | | | LABORATORY | | + + + + + + | Phosphorus | 6.4 (H) | 2.3 - 4.8 mg/dL | [facility] | | | | | | LABORATORY | | + + + + + + | Estimated | 13 (L)Comment: GFR <60: | >60 | [facility] | | | GFR | CHRONIC KIDNEY DISEASE, | mL/min/1.73m2 | LABORATORY | | | | IF FOUND OVER [...] | | | | | performed at [facility], [address] | | | | | [address], | | | | | | [place] [address] | | | | + + + + + + + + | Specimen | + + | Blood | + + + + + + + | Performing | Address | City/State/Zipcode | Phone Number | | Organization | | | | + + + + + | [facility] | [address] | [place] [address] | [phone] | + + + + + Cytoplasmic Neutrophil Ab (12/25/2019 4:22 AM PDT) + + + + + + | Component | Value | Ref Range | Performed | Pathologist | | | | | At | Signature | + + + + + + | C ANCA | <1:20 | Neg:<1:20 titer | [facility] | | | | | | LABORATORY | | + + + + + + | P ANCA | <1:20Comment: The | Neg:<1:20 titer | [facility] | | | | presence of positive | | LABORATORY | | | | fluorescence exhibiting | | | | | | P-ANCA or C-ANCApatterns | | | | | | alone is not specific | | | | | | for the diagnosis of | | | | | | Lidia'sGranulomatosis | | | | | | (WG) or microscopic | | | | | | polyangiitis. Decisions | | | | | | abouttreatment should | | | | | | not be based solely on | | | | | | ANCA IFA results. | | | | | | TheInternational ANCA | | | | | | Group Consensus | | | | | | recommends follow up | | | | | | testing ofpositive sera | | | | | | with both NV-3 and | | | | | | MPO-ANCA enzyme | | | | | | immunoassays. Asmany as | | | | | | 5% serum samples are | | | | | | positive only by | | | | | | EIA.Ref. AM J Clin | | | | | | Pathol 1999;111:[id number]. | | | | | | | | | | + + + + + + | Atypical | <1:20Comment: The | Neg:<1:20 titer | [facility] | | | pANCA | atypical pANCA pattern | | LABORATORY | | | | has been observed in a | | | | | | significantpercentage of | | | | | | patients with | | | | | | ulcerative colitis, | | | | | | primary | | | | | | sclerosingcholangitis | | | | | | and autoimmune | | | | | | hepatitis.Testing | | | | | | performed by [facility], | | | | | | [address], | | | | | | [facility] [address] | | | | + + + + + + + + | Specimen | + + | Blood | + + + + + + + | Performing | Address | City/State/Zipcode | Phone Number | | Organization | | | | + + + + + | [facility] | [address] | [place] [address] | [phone] | + + + + + Sedimentation Rate (12/25/2019 4:22 AM PDT) + + + + + + | Component | Value | Ref Range | Performed | Pathologist | | | | | At | Signature | + + + + + + | ESR | 6Comment: Testing | 0 - 20 mm/Hr | [facility] | | | | performed at [facility], [address] | | LABORATORY | | | | [address], | | | | | | [place] [address] | | | | + + + + + + + + | Specimen | + + | Blood | + + + + + + + | Performing | Address | City/State/Zipcode | Phone Number | | Organization | | | | + + + + + | [facility] | [address] | [place] [address] | [phone] | + + + + + Immunoglobulin, Free Light Chain (12/25/2019 4:22 AM PDT) + + + + + + | Component | Value | Ref Range | Performed | Pathologist | | | | | At | Signature | + + + + + + | Teton Free | 121.2 (H) | 3.3 - 19.4 mg/L | [facility] | | | Light | | | LABORATORY | | | Chain, | | | | | | Serum | | | | | + + + + + + | LAMBDA | 96.7 (H) | 5.7 - 26.3 mg/L | [facility] | | | QUANT FREE | | | LABORATORY | | | LIGHT | | | | | | CHAINS | | | | | + + + + + + | Teton/Lambd | 1.25Comment: Testing | 0.26 - 1.65 | [facility] | | | a Free | performed at [facility] | | LABORATORY | | | Light Chain | [place], [address] | | | | | Ratio | [place] [address] | | | | + + + + + + + + | Specimen | + + | Blood | + + + + + + + | Performing | Address | City/State/Zipcode | Phone Number | | Organization | | | | + + + + + | [facility] | [address] | [place] [address] | [phone] | + + + + + Glomerular Basement Membrane Ab, IgG (12/25/2019 4:22 AM PDT) + + + + + + | Component | Value | Ref Range | Performed | Pathologist | | | | | At | Signature | + + + + + + | Antiglomeru | 2Comment: | 0 - 20 units | [facility] | | | lar BM Ab, | Negative | | LABORATORY | | | Qn | | | | | | | 0 - 20 | | | | | | Weak | | | | | | Positive | | | | | | 21 - 30 | | | | | | Moderate | | | | | | to Strong Positive | | | | | | >30Testing performed by | | | | | | [facility], [address] | | | | | | [place] | | | | | | [address] | | | | + + + + + + + + | Specimen | + + | Blood | + + + + + + + | Performing | Address | City/State/Zipcode | Phone Number | | Organization | | | | + + + + + | [facility] | [address] | [place] [address] | [phone] | + + + + + Hepatitis Panel, Acute (12/25/2019 4:22 AM PDT) + + + + + + | Component | Value | Ref Range | Performed | Pathologist | | | | | At | Signature | + + + + + + | HAV AB IGM | Negative | Negative | [facility] | | | | | | LABORATORY | | + + + + + + | Hepatitis B | Negative | Negative | [facility] | | | Surface Ag | | | LABORATORY | | + + + + + + | HEP B CORE | Negative | Negative | [facility] | | | IgM | | | LABORATORY | | + + + + + + | HCV Ab | <0.1Comment: | 0.0 - 0.9 s/co | [facility] | | | | | ratio | LABORATORY | | | | Negative: | | | | | | < 0.8 | | | | | | | | | | | | Indeterminate: 0.8 | | | | | | - 0.9 | | | | | | | | | | | | Positive: > | | | | | | 0.9The [facility] recommends | | | | | | that a positive HCV | | | | | | antibody resultbe | | | | | | followed up with a HCV | | | | | | Nucleic Acid | | | | | | Amplificationtest | | | | | | ([id number]).Testing | | | | | | performed at [facility], | | | | | | [address], [facility], | | | | | | [facility] [address] | | | | + + + + + + + + | Specimen | + + | Blood | + + + + + + + | Performing | Address | City/State/Zipcode | Phone Number | | Organization | | | | + + + + + | [facility] | [address] | [place] [address] | [phone] | + + + + + CK Total (12/25/2019 4:22 AM PDT) + + + + + + | Component | Value | Ref Range | Performed | Pathologist | | | | | At | Signature | + + + + + + | CK TOTAL | 100Comment: Testing | 55 - 400 U/L | [facility] | | | | performed at [facility];[address] | | LABORATORY | | | | [address];[place] | | | | | | [address] | | | | + + + + + + + + | Specimen | + + | Blood | + + + + + + + | Performing | Address | City/State/Zipcode | Phone Number | | Organization | | | | + + + + + | [facility] | [address] | [place] [address] | [phone] | + + + + + Lactate Dehydrogenase (12/25/2019 4:22 AM PDT) + + + + + + | Component | Value | Ref Range | Performed | Pathologist | | | | | At | Signature | + + + + + + | LDH TOTAL | 154Comment: Testing | 120 - 246 U/L | [facility] | | | | performed at [facility];[address] | | LABORATORY | | | | [address];[place], [place] | | | | | | [address] | | | | + + + + + + + + | Specimen | + + | Blood | + + + + + + + | Performing | Address | City/State/Zipcode | Phone Number | | Organization | | | | + + + + + | [facility] | [address] | [place] [address] | [phone] | + + + + + Magnesium (12/25/2019 4:22 AM PDT) + + + + + + | Component | Value | Ref Range | Performed | Pathologist | | | | | At | Signature | + + + + + + | Magnesium | 2.5 (H)Comment: Testing | 1.7 - 2.4 mg/dL | [facility] | | | | performed at [facility], [address] | | LABORATORY | | | | [address], | | | | | | [place] [address] | | | | + + + + + + + + | Specimen | + + | Blood | + + + + + + + | Performing | Address | City/State/Zipcode | Phone Number | | Organization | | | | + + + + + | [facility] | [address] | [place] [address] | [phone] | + + + + + Protein, Urine, Random (12/25/2019 12:01 AM PDT) + + + + + + | Component | Value | Ref Range | Performed | Pathologist | | | | | At | Signature | + + + + + + | Protein, | 131Comment: NO NORMAL | mg/dL | [facility] | | | Urine | RANGE ESTABLISHEDTesting | | LABORATORY | | | | performed at [facility], [address] | | | | | [address], | | | | | | [place] [address] | | | | + + + + + + + + | Specimen | + + | | + + + + + + + | Performing | Address | City/State/Zipcode | Phone Number | | Organization | | | | + + + + + | [facility] | [address] | [place] [address] | [phone] | + + + + + Creatinine, Urine, Random (12/25/2019 12:01 AM PDT) + + + + + + | Component | Value | Ref Range | Performed | Pathologist | | | | | At | Signature | + + + + + + | Creatinine, | 139.0Comment: NO NORMAL | mg/dL | [facility] | | | random | RANGE ESTABLISHEDTesting | | LABORATORY | | | urine | performed at [facility], [address] | [address] | [address], | | | | | | [place] [address] | | | | + + + + + + + + | Specimen | + + | | + + + + + + + | Performing | Address | City/State/Zipcode | Phone Number | | Organization | | | | + + + + + | [facility] | [address] | [place] [address] | [phone] | + + + + + Protein/Creatinine Ratio, Urine (12/25/2019 12:01 AM PDT) + + + + + + | Component | Value | Ref Range | Performed | Pathologist | | | | | At | Signature | + + + + + + | PRO/CREA | 0.942Comment: Testing | | [facility] | | | RATIO,URINE | performed at [facility], [address] | | LABORATORY | | | | [address], | | | | | | [place] [address] | | | | + + + + + + + + | Specimen | + + | Urine | + + + + + + + | Performing | Address | City/State/Zipcode | Phone Number | | Organization | | | | + + + + + | [facility] | [address] | [place] [address] | [phone] | + + + + + POC Glucose (12/24/2019 8:55 PM PDT) + + + + + + | Component | Value | Ref Range | Performed | Pathologist | | | | | At | Signature | + + + + + + | Glucose, | 149 (H)Comment: Testing | 65 - 99 mg/dL | [facility] | | | POC | performed at [facility];[address] | LABORATORY | | | [address];[place], [place] | | | | | | [address] | | | | + + + + + + + + | Specimen | + + | | + + + + + + + | Performing | Address | City/State/Zipcode | Phone Number | | Organization | | | | + + + + + | [facility] | [address] [facility] | [place] [address] | [phone] | + + + + + POC Glucose (12/24/2019 5:14 PM PDT) + + + + + + | Component | Value | Ref Range | Performed | Pathologist | | | | | At | Signature | + + + + + + | Glucose, | 136 (H)Comment: Testing | 65 - 99 mg/dL | [facility] | | | POC | performed at [facility];[address] | | LABORATORY | | | | [address];[place], [place] | | | | | | [address] | | | | + + + + + + + + | Specimen | + + | | + + + + + + + | Performing | Address | City/State/Zipcode | Phone Number | | Organization | | | | + + + + + | [facility] | [address] | [place] [address] | [phone] | + + + + + ECG 12 lead (12/24/2019 2:26 PM PDT) + + + + + + | Component | Value | Ref Range | Performed | Pathologist | | | | | At | Signature | + + + + + + | VENTRICULAR | 60 | BPM | [facility] | | | RATE EKG | | | | | + + + + + + | ATRIAL RATE | 54 | BPM | [facility] | | + + + + + + | QRS | 176 | ms | [facility] | | | DURATION | | | | | + + + + + + | Q-T | 498 | ms | [facility] | | | INTERVAL | | | | | + + + + + + | Q-T | 498 | ms | [facility] | | | INTERVAL | | | | | | (CORRECTED) | | | | | + + + + + + | QRS AXIS | 123 | degrees | [facility] | | + + + + + + | T AXIS | -3 | degrees | [facility] | | + + + + + + | INTERPRETAT | Ventricular-paced | | [facility] | | | ION TEXT | rhythmAbnormal ECGWhen | | | | | | compared with ECG of | | | | | | 11-FEB-2019 | | | | | | 14:35,Previous ECG has | | | | | | undetermined rhythm, | | | | | | needs reviewConfirmed by | | | | | | YANIV ROONEY ([id number]) | | | | | | on 12/24/2019 6:00:29 PM | | | | + + + + + + + + | Specimen | + + | | + + + + + | Narrative | Performed At | + + + | | | + + + + +---------+ + + | Performing | Address | City/State/Zipcode | Phone Number | | Organization | | | | + +---------+ + + | [facility] | | | | + +---------+ + + XR Chest 2 Vws (12/24/2019 2:06 PM PDT) + + | Specimen | + + | | + + + + + | Impressions | Performed At | + + + | Mild bilateral interstitial opacities consistent with pulmonary | [facility] | | edema or atypical pneumonia. Small left pleural effusion. | | | Signed by: César Johnson, Tristan Sign Date/Time: 12/24/2019 3:21 | | | PM | | + + + + + + | Narrative | Performed At | + + + | [facility] VIEWS CLINICAL INFORMATION: Moist cough. | [facility] | | COMPARISON: CRCHEST (12/21/2019); XR CHEST 2 VIEW (07/25/2017); ECHO | | | OUTSIDE INTERPRETATION (04/03/2017); FINDINGS: Bilateral | | | interstitial opacities have slightly decreased when compared to the | | | examination 12/21/2019. There is a small left pleural effusion. No | | | pneumothorax. A right subclavian approach pacemaker has its lead | | | terminating in the right ventricle. | | + + + + + | Procedure Note | + + | Kobe, Rad Results In - 12/24/2019 3:24 PM PDT | | CHEST TWO VIEWS | | | | CLINICAL INFORMATION: | | Moist cough. | | | | COMPARISON: | | CRCHEST (12/21/2019); XR CHEST 2 VIEW (07/25/2017); ECHO OUTSIDE | | INTERPRETATION (04/03/2017); | | | | FINDINGS: | | Bilateral interstitial opacities have slightly decreased when compared | | to the examination 12/21/2019. There is a small left pleural effusion. | | No pneumothorax. A right subclavian approach pacemaker has its lead | | terminating in the right ventricle. | | | | IMPRESSION: | | Mild bilateral interstitial opacities consistent with pulmonary edema | | or atypical pneumonia. | | | | Small left pleural effusion. | | | | | | | | Signed by: César Johnson Matthew | | Sign Date/Time: 12/24/2019 3:21 PM | + + + +---------+ + + | Performing | Address | City/State/Zipcode | Phone Number | | Organization | | | | + +---------+ + + | [facility] | | | | + +---------+ + + US Renal Limited (12/24/2019 1:31 PM PDT) + + | Specimen | + + | | + + + + + | Impressions | Performed At | + + + | 1. Negative for hydronephrosis. 2. Renal cortical thinning to | [facility] | | likely resent medical renal disease. 3. Renal cysts. 4. Tiny amount | | | of free fluid within the pelvis that is nonspecific. | | | Signed by: Haydee Reynaga Chet Sign Date/Time: 12/24/2019 2:31 PM | | + + + + + + | Narrative | Performed At | + + + | ULTRASOUND KIDNEYS AND BLADDER CLINICAL INFORMATION: Acute | [facility] | | kidney injury. COMPARISON: None PROCEDURE: Evaluation of the | | | kidneys and urinary bladder. FINDINGS: Right kidney: 9.4 cm. | | | Renal cortical thinning. No hydronephrosis. Multiple hypoechoic | | | structures within the right kidney to likely resent tiny cysts | | | measuring up to 1 cm. Left kidney: 9.0 cm. Renal cortical | | | thinning. No hydronephrosis. A simple 5.5 x 4.6 x 5.0 cm cyst of | | | the mid left kidney. Multiple tiny hypoechoic structures within the | | | left kidney that are too small to characterize but likely represent | | | tiny cyst. Bladder: The bladder is decompressed by an indwelling | | | Lee catheter. Mild amount of free fluid in the pelvis that is | | | nonspecific. | | + + + + + | Procedure Note | + + | Kobe, Rad Results In - 12/24/2019 2:35 PM PDT | | ULTRASOUND KIDNEYS AND BLADDER | | | | CLINICAL INFORMATION: | | Acute kidney injury. | | | | COMPARISON: | | None | | | | PROCEDURE: | | Evaluation of the kidneys and urinary bladder. | | | | FINDINGS: | | Right kidney: 9.4 cm. Renal cortical thinning. No hydronephrosis. | | Multiple hypoechoic structures within the right kidney to likely resent | | tiny cysts measuring up to 1 cm. | | | | Left kidney: 9.0 cm. Renal cortical thinning. No hydronephrosis. A | | simple 5.5 x 4.6 x 5.0 cm cyst of the mid left kidney. Multiple tiny | | hypoechoic structures within the left kidney that are too small to | | characterize but likely represent tiny cyst. | | | | Bladder: The bladder is decompressed by an indwelling Lee catheter. | | Mild amount of free fluid in the pelvis that is nonspecific. | | | | IMPRESSION: | | 1. Negative for hydronephrosis. | | 2. Renal cortical thinning to likely resent medical renal disease. | | 3. Renal cysts. | | 4. Tiny amount of free fluid within the pelvis that is nonspecific. | | | | | | | | | | Signed by: Haydee Reynaga Chet | | Sign Date/Time: 12/24/2019 2:31 PM | + + + +---------+ + + | Performing | Address | City/State/Zipcode | Phone Number | | Organization | | | | + +---------+ + + | [facility] | | | | + +---------+ + + Blood gas, Arterial (12/24/2019 1:23 PM PDT) + + + + + + | Component | Value | Ref Range | Performed | Pathologist | | | | | At | Signature | + + + + + + | FiO2, POC | 21 | % | [facility] | | | | | | LABORATORY | | + + + + + + | pH, | 7.380Comment: This test | 7.350 - 7.450 | [facility] | | | Arterial, | was developed and its | | LABORATORY | | | POC | performance | | | | | | characteristics | | | | | | determined bybott, it | | | | | | has not been cleared or | | | | | | approved by the [place] FDA. | | | | | | Clinicians should | | | | | | beadvised to consider a | | | | | | patient's signs, | | | | | | symptoms, history, and | | | | | | results of | | | | | | otherdiagnostic tests | | | | | | when interpreting | | | | | | results from these | | | | | | cartridges. | | | | + + + + + + | pCO2, | 33 (L) | 35 - 45 mmHg | [facility] | | | Arterial | | | LABORATORY | | + + + + + + | pO2, | 71 (L) | 80 - 105 mmHg | [facility] | | | Arterial | | | LABORATORY | | + + + + + + | HCO3, | 20 (L) | 22 - 26 mmol/L | [facility] | | | Arterial | | | LABORATORY | | + + + + + + | TCO2, | 21 (L) | 23 - 27 mEq/L | [facility] | | | Arterial, | | | LABORATORY | | | POC | | | | | + + + + + + | POC Base | 5 (H) | 0.0 - 2.0 | [facility] | | | Deficit | | mmol/L | LABORATORY | | | mmol/L | | | | | + + + + + + | SO2, | 94 (L)Comment: Testing | 95 - 98 % | [facility] | | | Arterial, | performed at [facility];[address] | | LABORATORY | | | POC | [address];[place], [place] | | | | | | [address] | | | | + + + + + + + + | Specimen | + + | | + + + + + + + | Performing | Address | City/State/Zipcode | Phone Number | | Organization | | | | + + + + + | [facility] | [address] | [place] [address] | [phone] | + + + + + Coronavirus (COVID-19) NAAT (12/24/2019 1:10 PM PDT) + + + + + + | Component | Value | Ref Range | Performed | Pathologist | | | | | At | Signature | + + + + + + | SARS-CoV-2, | NEGATIVEComment: Testing | NEG | [facility] | | | YOU | performed at [facility];[address] | | LABORATORY | | | (COVID-19) | [address];[place], [place] | | | | | | [address] | | | | + + + + + + + + | Specimen | + + | Tissue - Entire | | nasopharynx (body | | structure) | + + + + + + + | Performing | Address | City/State/Zipcode | Phone Number | | Organization | | | | + + + + + | [facility] | [address] | [place] [address] | [phone] | + + + + + Culture, Blood (12/24/2019 1:02 PM PDT) + + + + + + | Component | Value | Ref Range | Performed | Pathologist | | | | | At | Signature | + + + + + + | Special | LF ARM | | [facility] | | | Requests | | | LABORATORY | | + + + + + + | Special | Testing performed at | | [facility] | | | Requests | [facility] | LABORATORY | | | | [address];[place] [address] | | | | + + + + + + | RESULT | NO GROWTH 6 DAYS | | [facility] | | | | | | LABORATORY | | + + + + + + | RESULT | Testing performed at | | [facility] | | | | TCL, [address] [facility] | | LABORATORY | | | | [place] | | | | | | [id number]: Testing | | | | | | performed at [facility], [address] | | | | | | [facility] [address] [place], [place] | | | | | | [address] | | | | + + + + + + + + | Specimen | + + | Blood - Peripheral | | blood specimen | | (specimen) | + + + + + + + | Performing | Address | City/State/Zipcode | Phone Number | | Organization | | | | + + + + + | [facility] | [address] | [place] [address] | [phone] | + + + + + Culture, Blood (12/24/2019 12:56 PM PDT) + + + + + + | Component | Value | Ref Range | Performed | Pathologist | | | | | At | Signature | + + + + + + | Special | LF ARM | | [facility] | | | Requests | | | LABORATORY | | + + + + + + | Special | Testing performed at | | [facility] | | | Requests | [address] [facility] | | LABORATORY | | | | [address];[place] [address] | | | | + + + + + + | RESULT | NO GROWTH 6 DAYS | | [facility] | | | | | | LABORATORY | | + + + + + + | RESULT | Testing performed at | | [facility] | | | | TCL, [address] [facility] | | LABORATORY | | | | [place], [place] | | | | | | [id number]: Testing | | | | | | performed at [facility], [address] | | | | | | [address], [place] | | | | | | [address] | | | | + + + + + + + + | Specimen | + + | Blood - Peripheral | | blood specimen | | (specimen) | + + + + + + + | Performing | Address | City/State/Zipcode | Phone Number | | Organization | | | | + + + + + | [facility] | [address] | [place] [address] | [phone] | + + + + + Urinalysis with Microscopic with Culture if Indicated (12/24/2019 12:45 PM PDT) + + + + + + | Component | Value | Ref Range | Performed | Pathologist | | | | | At | Signature | + + + + + + | Color, UA | YELLOW | | [facility] | | | | | | LABORATORY | | + + + + + + | Clarity, UA | CLEAR | | [facility] | | | | | | LABORATORY | | + + + + + + | Specific | 1.012 | 1.002 - 1.030 | [facility] | | | [place], | | | LABORATORY | | | Urine | | | | | + + + + + + | Leukocyte | NEGATIVE | NEG | [facility] | | | esterase, | | | LABORATORY | | | UA | | | | | + + + + + + | Nitrite, UA | NEGATIVE | NEG | [facility] | | | | | | LABORATORY | | + + + + + + | Urobilinoge | <1.6 | <1.6 mg/dL | [facility] | | | n, Ur | | | LABORATORY | | + + + + + + | Protein, | NEGATIVE | NEG mg/dL | [facility] | | | Urine | | | LABORATORY | | | (mg/dL) | | | | | + + + + + + | pH, Urine | 5.0 | 5.0 - 8.0 | [facility] | | | | | | LABORATORY | | + + + + + + | Blood, UA | MODERATE (A) | NEG | [facility] | | | | | | LABORATORY | | + + + + + + | Ketones, UA | NEGATIVE | NEG mg/dL | [facility] | | | | | | LABORATORY | | + + + + + + | Bilirubin, | NEGATIVE | NEG | [facility] | | | UA | | | LABORATORY | | + + + + + + | Glucose, Ur | NEGATIVE | NEG mg/dL | [facility] | | | | | | LABORATORY | | + + + + + + | WBC UA | 3-5 | 0 - 5 /hpf | [facility] | | | | | | LABORATORY | | + + + + + + | Red Blood | 50-100 | 0 - 2 /hpf | [facility] | | | Cells, | | | LABORATORY | | | Urine | | | | | + + + + + + | Squamous | NONE SEEN | /lpf | [facility] | | | Epithelial | | | LABORATORY | | | Cells, | | | | | | Urine | | | | | + + + + + + | Bacteria, | 1+ (A)Comment: Testing | NONE | [facility] | | | Urine | performed at [facility], [address] | | LABORATORY | | | | [address], | | | | | | [place] [address] | | | | + + + + + + + + | Specimen | + + | Urine - Urine | | specimen obtained by | | single | | catheterization of | | bladder (specimen) | + + + + + + + | Performing | Address | City/State/Zipcode | Phone Number | | Organization | | | | + + + + + | [facility] | [address] | [place] [address] | [phone] | + + + + + Sodium, Urine, Random (12/24/2019 12:45 PM PDT) + + + + + + | Component | Value | Ref Range | Performed | Pathologist | | | | | At | Signature | + + + + + + | Sodium, | 52Comment: NO NORMAL | mmol/L | [facility] | | | Random | [facility]ABLISHED[facility] | | LABORATORY | | | urine | performed at [facility], [address] | | | | | [address], | | | | | | [place] [address] | | | | + + + + + + + + | Specimen | + + | Urine - Urine | | specimen obtained by | | single | | catheterization of | | bladder (specimen) | + + + + + + + | Performing | Address | City/State/Zipcode | Phone Number | | Organization | | | | + + + + + | [facility] | [address] | [place] [address] | [phone] | + + + + + Creatinine, Urine, Random (12/24/2019 12:45 PM PDT) + + + + + + | Component | Value | Ref Range | Performed | Pathologist | | | | | At | Signature | + + + + + + | Creatinine, | 70.0Comment: NO NORMAL | mg/dL | [facility] | | | random | [facility] ESTABLISHEDTesting | | LABORATORY | | | urine | performed at [facility], [address] | | | | | [address], | | | | | | [place] [address] | | | | + + + + + + + + | Specimen | + + | Urine - Urine | | specimen obtained by | | single | | catheterization of | | bladder (specimen) | + + + + + + + | Performing | Address | City/State/Zipcode | Phone Number | | Organization | | | | + + + + + | [facility] | [address] | [place] [address] | [phone] | + + + + + Lactic Acid (12/24/2019 12:27 PM PDT) + + + + + + | Component | Value | Ref Range | Performed | Pathologist | | | | | At | Signature | + + + + + + | Lactate, | 1.6Comment: Testing | 0.4 - 2.0 | [facility] | | | Serum | performed at [facility];[address] | mmol/L | LABORATORY | | | | [address];[place], [place] | | | | | | [address] | | | | + + + + + + + + | Specimen | + + | Blood | + + + + + + + | Performing | Address | City/State/Zipcode | Phone Number | | Organization | | | | + + + + + | [facility] | [address] | [place] [address] | [phone] | + + + + + Procalcitonin (12/24/2019 12:27 PM PDT) + + + + + + | Component | Value | Ref Range | Performed | Pathologist | | | | | At | Signature | + + + + + + | PROCALCITON | 0.69 (H)Comment: | <0.5 ng/mL | [facility] | | | IN | INTERPRETIVE | | LABORATORY | | | | INFORMATION: | | | | | | PROCALCITONIN PCT <= | | | | | | 0.5 ng/mL: Low risk | | | | | | for progression to | | | | | | severe systemic | | | | | | bacterial infection | | | | | | (severe sepsis/septic | | | | | | shock). Does not | | | | | | exclude an infection, | | | | | | because localized | | | | | | infections may be | | | | | | associated with such low | | | | | | levels. If PCT is | | | | | | measured very early | | | | | | after bacterial | | | | | | challenge (usually <6 | | | | | | hours), results may | | | | | | still be low and | | | | | | should re-assess PCT | | | | | | 6-24 hours later. PCT | | | | | | >0.5 and <= 2 ng/mL: | | | | | | Moderate risk for | | | | | | progression to severe | | | | | | systemic infection | | | | | | (severe sepsis/septic | | | | | | shock). Other | | | | | | conditions are known | | | | | | to elevate PCT, patient | | | | | | should be closely | | | | | | monitored both | | | | | | clinically and by | | | | | | re-assessing PCT | | | | | | within 6-24 hours. PCT > | | | | | | 2 ng/mL: High | | | | | | likelihood for | | | | | | progression to severe | | | | | | systemic bacterial | | | | | | infection (severe | | | | | | sepsis/septic shock). | | | | | | PCT >= 10 ng/mL: | | | | | | High likelihood of | | | | | | severe sepsis or septic | | | | | | shock.Testing performed | | | | | | at [facility];[address] | | | | | | [address];[place] [address] | | | | + + + + + + + + | Specimen | + + | Blood | + + + + + + + | Performing | Address | City/State/Zipcode | Phone Number | | Organization | | | | + + + + + | [facility] | [address] | [place] [address] | [phone] | + + + + + POC Glucose (12/24/2019 12:25 PM PDT) + + + + + + | Component | Value | Ref Range | Performed | Pathologist | | | | | At | Signature | + + + + + + | Glucose, | 143 (H)Comment: Testing | 65 - 99 mg/dL | [facility] | | | POC | performed at [facility];[address] | | LABORATORY | | | | [address];[place], [place] | | | | | | [address] | | | | + + + + + + + + | Specimen | + + | | + + + + + + + | Performing | Address | City/State/Zipcode | Phone Number | | Organization | | | | + + + + + | [facility] | [address] | [place] [address] | [phone] | + + + + + POC Glucose (12/24/2019 8:32 AM PDT) + + + + + + | Component | Value | Ref Range | Performed | Pathologist | | | | | At | Signature | + + + + + + | Glucose, | 147 (H)Comment: Testing | 65 - 99 mg/dL | [facility] | | | POC | performed at [facility];[address] | | LABORATORY | | | | [address];[place] | | | | | | [address] | | | | + + + + + + + + | Specimen | + + | | + + + + + + + | Performing | Address | City/State/Zipcode | Phone Number | | Organization | | | | + + + + + | [facility] | [address] | [place] [address] | [phone] | + + + + + CBC no Differential (12/24/2019 4:21 AM PDT) + + + + + + | Component | Value | Ref Range | Performed | Pathologist | | | | | At | Signature | + + + + + + | WBC | 9.17 | 3.80 - 11.00 | [facility] | | | | | K/uL | LABORATORY | | + + + + + + | RBC | 2.77 (L) | 4.20 - 5.70 | [facility] | | | | | M/uL | LABORATORY | | + + + + + + | Hemoglobin | 9.0 (L) | 13.2 - 17.0 | [facility] | | | | | g/dL | LABORATORY | | + + + + + + | Hematocrit | 28.1 (L) | 39.0 - 50.0 % | [facility] | | | | | | LABORATORY | | + + + + + + | MCV | 101.4 (H) | 80.0 - 100.0 fl | [facility] | | | | | | LABORATORY | | + + + + + + | MCH | 32.5 | 27.0 - 34.0 pg | [facility] | | | | | | LABORATORY | | + + + + + + | MCHC | 32.0 | 32.0 - 35.5 | [facility] | | | | | g/dL | LABORATORY | | + + + + + + | RDW-SD | 54.7 (H) | 37 - 53 fl | [facility] | | | | | | LABORATORY | | + + + + + + | Platelet | 75 (L) | 150 - 400 K/uL | [facility] | | | Count | | | LABORATORY | | + + + + + + | MPV | 12.2Comment: NO NORMAL | fl | [facility] | | | | [facility] ESTABLISHEDTesting | | LABORATORY | | | | performed at [facility];[address] | | | | | | [address];[place] | | | | | | [address] | | | | + + + + + + + + | Specimen | + + | Blood | + + + + + + + | Performing | Address | City/State/Zipcode | Phone Number | | Organization | | | | + + + + + | [facility] | [address] | [place] [address] | [phone] | + + + + + Basic Metabolic Panel (12/24/2019 4:21 AM PDT) + + + + + + | Component | Value | Ref Range | Performed | Pathologist | | | | | At | Signature | + + + + + + | Na | 136 | 135 - 145 | [facility] | | | | | mmol/L | LABORATORY | | + + + + + + | K | 5.2 (H) | 3.5 - 4.9 | [facility] | | | | | mmol/L | LABORATORY | | + + + + + + | Cl | 105 | 99 - 109 mmol/L | [facility] | | | | | | LABORATORY | | + + + + + + | CO2 | 21 (L) | 23 - 32 mmol/L | [facility] | | | | | | LABORATORY | | + + + + + + | Anion Gap | 15 | 5 - 20 mmol/L | [facility] | | | | | | LABORATORY | | + + + + + + | Glucose | 120 (H) | 65 - 99 mg/dL | [facility] | | | | | | LABORATORY | | + + + + + + | BUN | 90 (H) | 8 - 25 mg/dL | [facility] | | | | | | LABORATORY | | + + + + + + | Creatinine | 3.7 (H) | 0.70 - 1.30 | [facility] | | | | | mg/dL | LABORATORY | | + + + + + + | BUN/Creatin | 24 | | [facility] | | | ine Ratio | | | LABORATORY | | + + + + + + | Calcium | 8.8 | 8.5 - 10.5 | [facility] | | | | | mg/dL | LABORATORY | | + + + + + + | Estimated | 16 (L)Comment: GFR <60: | >60 | [facility] | | | GFR | CHRONIC KIDNEY DISEASE, | mL/min/1.73m2 | LABORATORY | | | | IF FOUND OVER [...] | | | | | performed at [facility], [address] | | | | | | [facility], | | | | | | [place] [address] | | | | + + + + + + + + | Specimen | + + | Blood | + + + + + + + | Performing | Address | City/State/Zipcode | Phone Number | | Organization | | | | + + + + + | [facility] | [address] | [place] [address] | [phone] | + + + + + POC Glucose (12/23/2019 8:35 PM PDT) + + + + + + | Component | Value | Ref Range | Performed | Pathologist | | | | | At | Signature | + + + + + + | Glucose, | 135 (H)Comment: Testing | 65 - 99 mg/dL | [facility] | | | POC | performed at [facility];[address] | | LABORATORY | | | | [address];[place], [place] | | | | | | [address] | | | | + + + + + + + + | Specimen | + + | | + + + + + + + | Performing | Address | City/State/Zipcode | Phone Number | | Organization | | | | + + + + + | [facility] | [address] | [place] [address] | [phone] | + + + + + POC Glucose (12/23/2019 4:35 PM PDT) + + + + + + | Component | Value | Ref Range | Performed | Pathologist | | | | | At | Signature | + + + + + + | Glucose, | 129 (H)Comment: Testing | 65 - 99 mg/dL | [facility] | | | POC | performed at [facility];[address] | | LABORATORY | | | | [address];[place] | | | | | | [address] | | | | + + + + + + + + | Specimen | + + | | + + + + + + + | Performing | Address | City/State/Zipcode | Phone Number | | Organization | | | | + + + + + | [facility] | [address] | [place] [address] | [phone] | + + + + + POC Glucose (12/23/2019 2:05 PM PDT) + + + + + + | Component | Value | Ref Range | Performed | Pathologist | | | | | At | Signature | + + + + + + | Glucose, | 158 (H)Comment: Testing | 65 - 99 mg/dL | [facility] | | | POC | performed at [facility];[address] | | LABORATORY | | | | [address];[place] | | | | | | [address] | | | | + + + + + + + + | Specimen | + + | | + + + + + + + | Performing | Address | City/State/Zipcode | Phone Number | | Organization | | | | + + + + + | [facility] | [address] | [place] [address] | [phone] | + + + + + POC Glucose (12/23/2019 7:21 AM PDT) + + + + + + | Component | Value | Ref Range | Performed | Pathologist | | | | | At | Signature | + + + + + + | Glucose, | 122 (H)Comment: Testing | 65 - 99 mg/dL | [facility] | | | POC | performed at [facility];[address] | | LABORATORY | | | | [address];[place] | | | | | | [address] | | | | + + + + + + + + | Specimen | + + | | + + + + + + + | Performing | Address | City/State/Zipcode | Phone Number | | Organization | | | | + + + + + | [facility] | [address] | [place] [address] | [phone] | + + + + + Basic Metabolic Panel (12/23/2019 4:04 AM PDT) + + + + + + | Component | Value | Ref Range | Performed | Pathologist | | | | | At | Signature | + + + + + + | Na | 138 | 135 - 145 | [facility] | | | | | mmol/L | LABORATORY | | + + + + + + | K | 4.7 | 3.5 - 4.9 | [facility] | | | | | mmol/L | LABORATORY | | + + + + + + | Cl | 106 | 99 - 109 mmol/L | [facility] | | | | | | LABORATORY | | + + + + + + | CO2 | 22 (L) | 23 - 32 mmol/L | [facility] | | | | | | LABORATORY | | + + + + + + | Anion Gap | 15 | 5 - 20 mmol/L | [facility] | | | | | | LABORATORY | | + + + + + + | Glucose | 127 (H) | 65 - 99 mg/dL | [facility] | | | | | | LABORATORY | | + + + + + + | BUN | 65 (H) | 8 - 25 mg/dL | [facility] | | | | | | LABORATORY | | + + + + + + | Creatinine | 2.70 (H) | 0.70 - 1.30 | [facility] | | | | | mg/dL | LABORATORY | | + + + + + + | BUN/Creatin | 24 | | [facility] | | | ine Ratio | | | LABORATORY | | + + + + + + | Calcium | 8.3 (L) | 8.5 - 10.5 | [facility] | | | | | mg/dL | LABORATORY | | + + + + + + | Estimated | 22 (L)Comment: GFR <60: | >60 | [facility] | | | GFR | CHRONIC KIDNEY DISEASE, | mL/min/1.73m2 | LABORATORY | | | | IF FOUND OVER [...] | | | | | performed at [facility];[address] | | | | | | [facility];[place], [place] | | | | | | [address] | | | | + + + + + + + + | Specimen | + + | Blood | + + + + + + + | Performing | Address | City/State/Zipcode | Phone Number | | Organization | | | | + + + + + | [facility] | [address] | [place] [address] | [phone] | + + + + + Phosphorus (12/23/2019 4:04 AM PDT) + + + + + + | Component | Value | Ref Range | Performed | Pathologist | | | | | At | Signature | + + + + + + | Phosphorus | 4.6Comment: Testing | 2.3 - 4.8 mg/dL | [facility] | | | | performed at [facility];[address] | LAB[address]AT[address] | | | | [address];[place] | | | | | | [address] | | | | + + + + + + + + | Specimen | + + | Blood | + + + + + + + | Performing | Address | City/State/Zipcode | Phone Number | | Organization | | | | + + + + + | [facility] | [address] | [place] [address] | [phone] | + + + + + Magnesium (12/23/2019 4:04 AM PDT) + + + + + + | Component | Value | Ref Range | Performed | Pathologist | | | | | At | Signature | + + + + + + | Magnesium | 2.1Comment: Testing | 1.7 - 2.4 mg/dL | [facility] | | | | performed at [facility];[address] | | LABORATORY | | | | [address];[place] | | | | | | [address] | | | | + + + + + + + + | Specimen | + + | Blood | + + + + + + + | Performing | Address | City/State/Zipcode | Phone Number | | Organization | | | | + + + + + | [facility] | [address] | [place] [address] | [phone] | + + + + + CBC no Differential (12/23/2019 4:04 AM PDT) + + + + + + | Component | Value | Ref Range | Performed | Pathologist | | | | | At | Signature | + + + + + + | WBC | 7.83 | 3.80 - 11.00 | [facility] | | | | | K/uL | LABORATORY | | + + + + + + | RBC | 2.70 (L) | 4.20 - 5.70 | [facility] | | | | | M/uL | LABORATORY | | + + + + + + | Hemoglobin | 8.8 (L) | 13.2 - 17.0 | [facility] | | | | | g/dL | LABORATORY | | + + + + + + | Hematocrit | 26.6 (L) | 39.0 - 50.0 % | [facility] | | | | | | LABORATORY | | + + + + + + | MCV | 98.5 | 80.0 - 100.0 fl | [facility] | | | | | | LABORATORY | | + + + + + + | MCH | 32.6 | 27.0 - 34.0 pg | [facility] | | | | | | LABORATORY | | + + + + + + | MCHC | 33.1 | 32.0 - 35.5 | [facility] | | | | | g/dL | LABORATORY | | + + + + + + | RDW-SD | 53.6 (H) | 37 - 53 fl | [facility] | | | | | | LABORATORY | | + + + + + + | Platelet | 67 (L) | 150 - 400 K/uL | [facility] | | | Count | | | LABORATORY | | + + + + + + | MPV | 10.6Comment: NO NORMAL | fl | [facility] | | | | RANGE ESTABLISHEDTesting | | LABORATORY | | | | performed at [facility];[address] | | | | | | [address];[place] | | | | | | [address] | | | | + + + + + + + + | Specimen | + + | Blood | + + + + + + + | Performing | Address | City/State/Zipcode | Phone Number | | Organization | | | | + + + + + | [facility] | [address] | [place] [address] | [phone] | + + + + + Hemoglobin (12/22/2019 9:37 PM PDT) + + + + + + | Component | Value | Ref Range | Performed | Pathologist | | | | | At | Signature | + + + + + + | Hemoglobin | 9.1 (L)Comment: Testing | 13.2 - 17.0 | [facility] | | | | performed at [facility];[address] | g/dL | LABORATORY | | | | [address];[place] | | | | | | [address] | | | | + + + + + + + + | Specimen | + + | Blood | + + + + + + + | Performing | Address | City/State/Zipcode | Phone Number | | Organization | | | | + + + + + | [facility] | [address] | [place] [address] | [phone] | + + + + + Hematocrit (12/22/2019 9:37 PM PDT) + + + + + + | Component | Value | Ref Range | Performed | Pathologist | | | | | At | Signature | + + + + + + | Hematocrit | 27.4 (L)Comment: Testing | 39.0 - 50.0 % | [facility] | | | | performed at [facility];[address] | | LABORATORY | | | | [address];[place] | | | | | | [address] | | | | + + + + + + + + | Specimen | + + | Blood | + + + + + + + | Performing | Address | City/State/Zipcode | Phone Number | | Organization | | | | + + + + + | [facility] | [address] | [place] [address] | [phone] | + + + + + POC Glucose (12/22/2019 8:30 PM PDT) + + + + + + | Component | Value | Ref Range | Performed | Pathologist | | | | | At | Signature | + + + + + + | Glucose, | 129 (H)Comment: Testing | 65 - 99 mg/dL | [facility] | | | POC | performed at [facility];[address] | | LABORATORY | | | | [address];[place] | | | | | | [address] | | | | + + + + + + + + | Specimen | + + | | + + + + + + + | Performing | Address | City/State/Zipcode | Phone Number | | Organization | | | | + + + + + | [facility] | [address] | [place] [address] | [phone] | + + + + + POC Glucose (12/22/2019 5:32 PM PDT) + + + + + + | Component | Value | Ref Range | Performed | Pathologist | | | | | At | Signature | + + + + + + | Glucose, | 153 (H)Comment: Testing | 65 - 99 mg/dL | [facility] | | | POC | performed at [facility];[address] | | LABORATORY | | | | [address];[place] | | | | | | [address] | | | | + + + + + + + + | Specimen | + + | | + + + + + + + | Performing | Address | City/State/Zipcode | Phone Number | | Organization | | | | + + + + + | [facility] | [address] | [place] [address] | [phone] | + + + + + Red Blood Cells (PRBC) - Crossmatch (12/22/2019 10:50 AM PDT) + + + + + + | Component | Value | Ref Range | Performed | Pathologist | | | | | At | Signature | + + + + + + | Product | RED CELL GROUP | | [facility] | | | Code | | | LABORATORY | | + + + + + + | Units | 1 | | [facility] | | | ordered | | | LABORATORY | | + + + + + + | BLOOD BANK | ORDER RECEIVED IN BLOOD | | [facility] | | | COMMENT | BANK. | | LABORATORY | | + + + + + + | BLOOD BANK | Testing performed at | | [facility] | | | COMMENT | [facility];[address] | LABORATORY | | | | [address];[place] [address] | | | | + + + + + + + + | Specimen | + + | | + + + + + + + | Performing | Address | City/State/Zipcode | Phone Number | | Organization | | | | + + + + + | [facility] | [address] | [place] [address] | [phone] | + + + + + POC Glucose (12/22/2019 10:38 AM PDT) + + + + + + | Component | Value | Ref Range | Performed | Pathologist | | | | | At | Signature | + + + + + + | Glucose, | 161 (H)Comment: Testing | 65 - 99 mg/dL | [facility] | | | POC | performed at [facility];[address] | | LABORATORY | | | | [address];[place], [place] | | | | | | [address] | | | | + + + + + + + + | Specimen | + + | | + + + + + + + | Performing | Address | City/State/Zipcode | Phone Number | | Organization | | | | + + + + + | [facility] | [address] | [place] [address] | [phone] | + + + + + NATHALIA Mathew (12/22/2019 10:28 AM PDT) + + | Specimen | + + | | + + + + + | Impressions | Performed At | + + + | Fluoroscopic service for right hip fixation. This report is for | [facility] | | radiation documentation purposes only. Signed by: Denis, | | | Eliezer Lindsey Date/Time: 12/22/2019 10:44 AM | | + + + + + + | Narrative | Performed At | + + + | FLUOROSCOPY C ARM CLINICAL INFORMATION: NAILING IM BETSY FEMUR | [facility] | | - GAMMA NAIL - Right FINDINGS: Fluoro Time: 123 seconds. | | | Number of images: 4 23.95 mGy peak skin dose. Multiple AP and | | | frogleg lateral films of the right hip. Intramedullary betsy | | | extending through the right greater trochanter transfixed with 2 | | | screws distally. Dynamic compression screw extending through the betsy | | | into the right femoral head, transfixing the | | | subtrochanteric/intertrochanteric right hip fracture. | | + + + + + | Procedure Note | + + | Kobe, Rad Results In 12/22/2019 10:47 AM PDT | | FLUOROSCOPY C ARM | | | | CLINICAL INFORMATION: | | NAILING IM BETSY FEMUR - GAMMA NAIL - Right | | | | FINDINGS: | | Fluoro Time: 123 seconds. Number of images: 4 23.95 mGy peak skin dose. | | | | Multiple AP and frogleg lateral films of the right hip. Intramedullary | | betsy extending through the right greater trochanter transfixed with 2 | | screws distally. Dynamic compression screw extending through the betsy | | into the right femoral head, transfixing the | | subtrochanteric/intertrochanteric right hip fracture. | | | | IMPRESSION: | | Fluoroscopic service for right hip fixation. This report is for | | radiation documentation purposes only. | | | | | | | | Signed by: César Barrios Shawn | | Sign Date/Time: 12/22/2019 10:44 AM | + + + +---------+ + + | Performing | Address | City/State/Zipcode | Phone Number | | Organization | | | | + +---------+ + + | [facility] | | | | + +---------+ + + POC ISTAT, CG8, Arterial (12/22/2019 10:03 AM PDT) + + + + + + | Component | Value | Ref Range | Performed | Pathologist | | | | | At | Signature | + + + + + + | pH, | 7.340 (L) | 7.350 - 7.450 | [facility] | | | Arterial, | | | LABORATORY | | | POC | | | | | + + + + + + | pCO2, | 41 | 35 - 45 mmHg | [facility] | | | Arterial | | | LABORATORY | | + + + + + + | pO2, | 192 (H) | 80 - 105 mmHg | [facility] | | | Arterial | | | LABORATORY | | + + + + + + | HCO3, | 22 | 22 - 26 mmol/L | [facility] | | | Arterial | | | LABORATORY | | + + + + + + | TCO2, | 23 | 23 - 27 mEq/L | [facility] | | | Arterial, | | | LABORATORY | | | POC | | | | | + + + + + + | POC Base | 4 (H) | 0.0 - 2.0 | [facility] | | | Deficit | | mmol/L | LABORATORY | | | mmol/L | | | | | + + + + + + | SO2, | 100 (H) | 95 - 98 % | [facility] | | | Arterial, | | | LABORATORY | | | POC | | | | | + + + + + + | Sodium, POC | 138 | 135 - 145 mEq/L | [facility] | | | | | | LABORATORY | | + + + + + + | Potassium, | 4.4 | 3.5 - 5.0 mEq/L | [facility] | | | POC | | | LABORATORY | | + + + + + + | Ionized | 1.26 | 1.12 - 1.32 | [facility] | | | Calcium, | | mmol/L | LABORATORY | | | POC | | | | | + + + + + + | Glucose, | 156 (H) | 65 - 99 mg/dL | [facility] | | | POC | | | LABORATORY | | + + + + + + | Hematocrit, | 21 (LL) | 40.0 - 50.0 % | [facility] | | | POC | | | LABORATORY | | + + + + + + | Hemoglobin, | 7.1 (LL)Comment: Testing | 13.7 - 16.7 | [facility] | | | POC | performed at [facility];[address] | g/dL | LABORATORY | | | | [address];[place] | | | | | | [address] | | | | + + + + + + + + | Specimen | + + | | + + + + + + + | Performing | Address | City/State/Zipcode | Phone Number | | Organization | | | | + + + + + | [facility] | [address] | [place] [address] | [phone] | + + + + + POC MORRIS CG8, Arterial (12/22/2019 9:23 AM PDT) + + + + + + | Component | Value | Ref Range | Performed | Pathologist | | | | | At | Signature | + + + + + + | pH, | 7.314 (L) | 7.350 - 7.450 | [facility] | | | Arterial, | | | LABORATORY | | | POC | | | | | + + + + + + | pCO2, | 43 | 35 - 45 mmHg | [facility] | | | Arterial | | | LABORATORY | | + + + + + + | pO2, | 262 (HH) | 80 - 105 mmHg | [facility] | | | Arterial | | | LABORATORY | | + + + + + + | HCO3, | 22 | 22 - 26 mmol/L | [facility] | | | Arterial | | | LABORATORY | | + + + + + + | TCO2, | 23 | 23 - 27 mEq/L | [facility] | | | Arterial, | | | LABORATORY | | | POC | | | | | + + + + + + | POC Base | 5 (H) | 0.0 - 2.0 | [facility] | | | Deficit | | mmol/L | LABORATORY | | | mmol/L | | | | | + + + + + + | SO2, | 100 (H) | 95 - 98 % | [facility] | | | Arterial, | | | LABORATORY | | | POC | | | | | + + + + + + | Sodium, POC | 136 | 135 - 145 mEq/L | [facility] | | | | | | LABORATORY | | + + + + + + | Potassium, | 4.6 | 3.5 - 5.0 mEq/L | [facility] | | | POC | | | LABORATORY | | + + + + + + | Ionized | 1.19 | 1.12 - 1.32 | [facility] | | | Calcium, | | mmol/L | LABORATORY | | | POC | | | | | + + + + + + | Glucose, | 192 (H) | 65 - 99 mg/dL | [facility] | | | POC | | | LABORATORY | | + + + + + + | Hematocrit, | 23 (LL) | 40.0 - 50.0 % | [facility] | | | POC | | | LABORATORY | | + + + + + + | Hemoglobin, | 7.8 (LL)Comment: Testing | 13.7 - 16.7 | [facility] | | | POC | performed at [facility];[address] | g/dL | LABORATORY | | | | [address];[place], [place] | | | | | | [address] | | | | + + + + + + + + | Specimen | + + | | + + + + + + + | Performing | Address | City/State/Zipcode | Phone Number | | Organization | | | | + + + + + | [facility] | [address] | [place] [address] | [phone] | + + + + + NATHANAEL THURSTON Arterial (12/22/2019 8:47 AM PDT) + + + + + + | Component | Value | Ref Range | Performed | Pathologist | | | | | At | Signature | + + + + + + | pH, | 7.341 (L) | 7.350 - 7.450 | [facility] | | | Arterial, | | | LABORATORY | | | POC | | | | | + + + + + + | pCO2, | 40 | 35 - 45 mmHg | [facility] | | | Arterial | | | LABORATORY | | + + + + + + | pO2, | 83 | 80 - 105 mmHg | [facility] | | | Arterial | | | LABORATORY | | + + + + + + | HCO3, | 21 (L) | 22 - 26 mmol/L | [facility] | | | Arterial | | | LABORATORY | | + + + + + + | TCO2, | 23 | 23 - 27 mEq/L | [facility] | | | Arterial, | | | LABORATORY | | | POC | | | | | + + + + + + | POC Base | 4 (H) | 0.0 - 2.0 | [facility] | | | Deficit | | mmol/L | LABORATORY | | | mmol/L | | | | | + + + + + + | SO2, | 95 | 95 - 98 % | [facility] | | | Arterial, | | | LABORATORY | | | POC | | | | | + + + + + + | Sodium, POC | 136 | 135 - 145 mEq/L | [facility] | | | | | | LABORATORY | | + + + + + + | Potassium, | 4.7 | 3.5 - 5.0 mEq/L | [facility] | | | POC | | | LABORATORY | | + + + + + + | Ionized | 1.24 | 1.12 - 1.32 | [facility] | | | Calcium, | | mmol/L | LABORATORY | | | POC | | | | | + + + + + + | Glucose, | 269 (H) | 65 - 99 mg/dL | [facility] | | | POC | | | LABORATORY | | + + + + + + | Hematocrit, | 26 (L) | 40.0 - 50.0 % | [facility] | | | POC | | | LABORATORY | | + + + + + + | Hemoglobin, | 8.8 (L)Comment: Testing | 13.7 - 16.7 | [facility] | | | POC | performed at [facility];[address] | g/dL | LABORATORY | | | | [address];[place], [place] | | | | | | [address] | | | | + + + + + + + + | Specimen | + + | | + + + + + + + | Performing | Address | City/State/Zipcode | Phone Number | | Organization | | | | + + + + + | [facility] | [address] | [place] [address] | [phone] | + + + + + POC ISTAT, CG8, Venous (12/22/2019 8:03 AM PDT) + + + + + + | Component | Value | Ref Range | Performed | Pathologist | | | | | At | Signature | + + + + + + | pH, Venous, | 7.357 | 7.310 - 7.410 | [facility] | | | POC | | | LABORATORY | | + + + + + + | PCO2, | 45 | 41 - 51 mmHG | [facility] | | | Venous, POC | | | LABORATORY | | + + + + + + | pO2, Venous | 33 | 30 - 40 mmHG | [facility] | | | | | | LABORATORY | | + + + + + + | HCO3, | 25 | 23 - 28 mmol/L | [facility] | | | Venous | | | LABORATORY | | + + + + + + | TCO2, POC | 26 | 24 - 29 mEq/L | [facility] | | | | | | LABORATORY | | + + + + + + | POC Base | 1 | 0.0 - 2.0 | [facility] | | | Deficit | | mmol/L | LABORATORY | | | mmol/L | | | | | + + + + + + | POC | 61.0 | 60 - 85 % | [facility] | | | SO2.BLDV.QN | | | LABORATORY | | | .(%) | | | | | + + + + + + | Sodium, POC | 136 | 135 - 145 mEq/L | [facility] | | | | | | LABORATORY | | + + + + + + | Potassium, | 5.8 (H) | 3.5 - 5.0 mEq/L | [facility] | | | POC | | | LABORATORY | | + + + + + + | Ionized | 1.21 | 1.12 - 1.32 | [facility] | | | Calcium, | | mmol/L | LABORATORY | | | POC | | | | | + + + + + + | Glucose, | 141 (H) | 65 - 99 mg/dL | [facility] | | | POC | | | LABORATORY | | + + + + + + | Hematocrit, | 27 (L) | 40.0 - 50.0 % | [facility] | | | POC | | | LABORATORY | | + + + + + + | Hemoglobin, | 9.2 (L)Comment: Testing | 13.7 - 16.7 | [facility] | | | POC | performed at [facility];[address] | g/dL | LABORATORY | | | | [address];[place], [place] | | | | | | [address] | | | | + + + + + + + + | Specimen | + + | | + + + + + + + | Performing | Address | City/State/Zipcode | Phone Number | | Organization | | | | + + + + + | [facility] | [address] | [place] [address] | [phone] | + + + + + Type and Screen (12/22/2019 7:43 AM PDT) + + + + + + | Component | Value | Ref Range | Performed | Pathologist | | | | | At | Signature | + + + + + + | ABO Rh | A POSITIVE | | [facility] | | | | | | LABORATORY | | + + + + + + | Antibody | NEGATIVE | | [facility] | | | Screen | | | LABORATORY | | + + + + + + | BB BAND | [id number] | | [facility] | | | | | | LABORATORY | | + + + + + + | UNIT # | [id number] | | [facility] | | | | | | LABORATORY | | + + + + + + | Product | LEUKODEPLETED PC | | [facility] | | | Code | | | LABORATORY | | + + + + + + | Unit | 00 | | [facility] | | | Division | | | LABORATORY | | + + + + + + | Unit Status | ISSUED,FINAL | | [facility] | | | | | | LABORATORY | | + + + + + + | Transfusion | OK TO TRANSFUSE | | [facility] | | | Status | | | LABORATORY | | + + + + + + | CROSSMATCH | COMPATIBLETesting | | [facility] | | | RESULT | performed at [facility] | | LABORATORY | | | | [address];[place], [place] | | | | | | [address] | | | | + + + + + + | UNIT # | [id number] | | [facility] | | | | | | LABORATORY | | + + + + + + | Product | LEUKODEPLETED PC | | [facility] | | | Code | | | LABORATORY | | + + + + + + | Unit | 00 | | [facility] | | | Division | | | LABORATORY | | + + + + + + | Unit Status | ISSUED,FINAL | | [facility] | | | | | | LABORATORY | | + + + + + + | Transfusion | OK TO TRANSFUSE | | [facility] | | | Status | | | LABORATORY | | + + + + + + | CROSSMATCH | COMPATIBLE | | [facility] | | | RESULT | | | LABORATORY | | + + + + + + + + | Specimen | + + | Blood | + + + + + + + | Performing | Address | City/State/Zipcode | Phone Number | | Organization | | | | + + + + + | [facility] | [address] | [place] [address] | [phone] | + + + + + POC Glucose (12/22/2019 5:35 AM PDT) + + + + + + | Component | Value | Ref Range | Performed | Pathologist | | | | | At | Signature | + + + + + + | Glucose, | 155 (H)Comment: Testing | 65 - 99 mg/dL | [facility] | | | POC | performed at [facility];[address] | | LABORATORY | | | | [address];[place], [place] | | | | | | [address] | | | | + + + + + + + + | Specimen | + + | | + + + + + + + | Performing | Address | City/State/Zipcode | Phone Number | | Organization | | | | + + + + + | [facility] | [address] | [place] [address] | [phone] | + + + + + Tabbyime JORDAN (12/22/2019 5:26 AM PDT) + + + + + + | Component | Value | Ref Range | Performed | Pathologist | | | | | At | Signature | + + + + + + | INR | 1.2Comment: REFERENCE | | [facility] | | | | RANGE:0.9 - 1.2 | | LABORATORY | | | | NON-ANTICOAGULATED2.0 | | [...] | | | | | performed at [facility];[address] | | | | | | [address];[place], [place] | | | | | | [address] | | | | + + + + + + + + | Specimen | + + | Blood | + + + + + + + | Performing | Address | City/State/Zipcode | Phone Number | | Organization | | | | + + + + + | [facility] | [address] | [place] [address] | [phone] | + + + + + CBC with Differential (12/22/2019 5:26 AM PDT) + + + + + + | Component | Value | Ref Range | Performed | Pathologist | | | | | At | Signature | + + + + + + | WBC | 8.59 | 3.80 - 11.00 | [facility] | | | | | K/uL | LABORATORY | | + + + + + + | RBC | 2.68 (L) | 4.20 - 5.70 | [facility] | | | | | M/uL | LABORATORY | | + + + + + + | Hemoglobin | 8.9 (L) | 13.2 - 17.0 | [facility] | | | | | g/dL | LABORATORY | | + + + + + + | Hematocrit | 26.8 (L) | 39.0 - 50.0 % | [facility] | | | | | | LABORATORY | | + + + + + + | MCV | 100.0 | 80.0 - 100.0 fl | [facility] | | | | | | LABORATORY | | + + + + + + | MCH | 33.2 | 27.0 - 34.0 pg | [facility] | | | | | | LABORATORY | | + + + + + + | MCHC | 33.2 | 32.0 - 35.5 | [facility] | | | | | g/dL | LABORATORY | | + + + + + + | RDW-SD | 48.3 | 37 - 53 fl | [facility] | | | | | | LABORATORY | | + + + + + + | Platelet | 98 (L) | 150 - 400 K/uL | [facility] | | | Count | | | LABORATORY | | + + + + + + | MPV | 11.4Comment: NO NORMAL | fl | [facility] | | | | RANGE ESTABLISHED | | LABORATORY | | + + + + + + | Diff Type | AUTOMATED | | [facility] | | | | | | LABORATORY | | + + + + + + | % nRBC | 0.0 | 0 /100WBC | [facility] | | | | | | LABORATORY | | + + + + + + | % | 86.10 | % | [facility] | | | Neutrophils | | | LABORATORY | | + + + + + + | IMMATURE | 0.30 | % | [facility] | | | GRANULOCYTE | | | LABORATORY | | + + + + + + | % | 7.80 | % | [facility] | | | Lymphocytes | | | LABORATORY | | + + + + + + | Monocyte % | 5.40 | % | [facility] | | | | | | LABORATORY | | + + + + + + | Eosinophils | 0.20 | % | [facility] | | | % | | | LABORATORY | | + + + + + + | Basophils % | 0.20 | % | [facility] | | | | | | LABORATORY | | + + + + + + | Neutrophils | 7.39 | 1.90 - 7.40 | [facility] | | | , Absolute | | K/uL | LABORATORY | | + + + + + + | IMMATURE | 0.03Comment: NOTE NEW | 0.00 - 0.07 | [facility] | | | GRANS AB | REFERENCE RANGE | K/uL | LABORATORY | | + + + + + + | Absolute | 0.67 (L) | 1.00 - 3.90 | [facility] | | | Lymphocytes | | K/uL | LABORATORY | | + + + + + + | Absolute | 0.46 | 0.00 - 0.80 | [facility] | | | Monocytes | | K/uL | LABORATORY | | + + + + + + | Eosinophils | 0.02 | 0.00 - 0.50 | [facility] | | | , Absolute | | K/uL | LABORATORY | | + + + + + + | Basophils, | 0.02Comment: Testing | 0.00 - 0.10 | [facility] | | | Absolute | performed at [facility], [address] | K/uL | LABORATORY | | | | [address], | | | | | | [place] [address] | | | | + + + + + + + + | Specimen | + + | Blood | + + + + + + + | Performing | Address | City/State/Zipcode | Phone Number | | Organization | | | | + + + + + | [facility] | [address] | [place] [address] | [phone] | + + + + + Magnesium (12/22/2019 5:26 AM PDT) + + + + + + | Component | Value | Ref Range | Performed | Pathologist | | | | | At | Signature | + + + + + + | Magnesium | 2.6 (H)Comment: Testing | 1.7 - 2.4 mg/dL | [facility] | | | | performed at [facility], [address] | | LABORATORY | | | | [address], | | | | | | [place] [address] | | | | + + + + + + + + | Specimen | + + | Blood | + + + + + + + | Performing | Address | City/State/Zipcode | Phone Number | | Organization | | | | + + + + + | [facility] | [address] | [place] [address] | [phone] | + + + + + Basic Metabolic Panel (12/22/2019 5:26 AM PDT) + + + + + + | Component | Value | Ref Range | Performed | Pathologist | | | | | At | Signature | + + + + + + | Na | 137 | 135 - 145 | [facility] | | | | | mmol/L | LABORATORY | | + + + + + + | K | 5.7 (H) | 3.5 - 4.9 | [facility] | | | | | mmol/L | LABORATORY | | + + + + + + | Cl | 104 | 99 - 109 mmol/L | [facility] | | | | | | LABORATORY | | + + + + + + | CO2 | 23 | 23 - 32 mmol/L | [facility] | | | | | | LABORATORY | | + + + + + + | Anion Gap | 16 | 5 - 20 mmol/L | [facility] | | | | | | LABORATORY | | + + + + + + | Glucose | 145 (H) | 65 - 99 mg/dL | [facility] | | | | | | LABORATORY | | + + + + + + | BUN | 90 (H) | 8 - 25 mg/dL | [facility] | | | | | | LABORATORY | | + + + + + + | Creatinine | 2.8 (H) | 0.70 - 1.30 | [facility] | | | | | mg/dL | LABORATORY | | + + + + + + | BUN/Creatin | 32 | | [facility] | | | ine Ratio | | | LABORATORY | | + + + + + + | Calcium | 9.0 | 8.5 - 10.5 | [facility] | | | | | mg/dL | LABORATORY | | + + + + + + | Estimated | 22 (L)Comment: GFR <60: | >60 | [facility] | | | GFR | CHRONIC KIDNEY DISEASE, | mL/min/1.73m2 | LABORATORY | | | | IF FOUND OVER [...] | | | | | performed at [facility], [address] | | | | | [facility], | | | | | | [place] [address] | | | | + + + + + + + + | Specimen | + + | Blood | + + + + + + + | Performing | Address | City/State/Zipcode | Phone Number | | Organization | | | | + + + + + | [facility] | [address] | [place] [address] | [phone] | + + + + + POC Glucose (12/21/2019 11:43 PM PDT) + + + + + + | Component | Value | Ref Range | Performed | Pathologist | | | | | At | Signature | + + + + + + | Glucose, | 153 (H)Comment: Testing | 65 - 99 mg/dL | [facility] | | | POC | performed at [facility];[address] | | LABORATORY | | | | [address];[place] | | | | | | [address] | | | | + + + + + + + + | Specimen | + + | | + + + + + + + | Performing | Address | City/State/Zipcode | Phone Number | | Organization | | | | + + + + + | [facility] | [address] | [place] [address] | [phone] | + + + + + POC Glucose (12/21/2019 9:11 PM PDT) + + + + + + | Component | Value | Ref Range | Performed | Pathologist | | | | | At | Signature | + + + + + + | Glucose, | 182 (H)Comment: Testing | 65 - 99 mg/dL | [facility] | | | POC | performed at [facility];[address] | | LABORATORY | | | | [address];[place] | | | | | | [address] | | | | + + + + + + + + | Specimen | + + | | + + + + + + + | Performing | Address | City/State/Zipcode | Phone Number | | Organization | | | | + + + + + | [facility] | [address] | [place] [address] | [phone] | + + + + + documented in this encounter Visit Diagnoses + + | Diagnosis | + + | Acute GI bleeding Hemorrhage of gastrointestinal tract, unspecified | + + documented in this encounter Administered Medications + +--------+---------+------+------+------+ | Medication Order | MAR | Action | Dose | Rate | Site | | | Action | Date | | | | + +--------+---------+------+------+------+ + +---+ | acetaminophen (TYLENOL) 160 | | | mg/5 mL liquid 500 mg 500 mg, | | | Oral, ONCE PRN, Pain, Starting | | | 12/29/19 at 1029, For 1 dose, | | | One time if none given within 4 | | | hours., Recovery/Phase I | | + +---+ | | | + +---+ | acetaminophen (TYLENOL) | | | suppository 650 mg 650 mg, | | | Rectal, ONCE PRN, Pain, Starting | | | 12/29/19 at 1029, For 1 dose, | | | One time if unable to take oral | | | and none given within 4 hours., | | | Recovery/Phase I | | + +---+ | | | + +---+ + +-------+ + +---+---+ | acetaminophen (TYLENOL) tablet | Given | 01/01/20 | 1,000 mg | | | | 1,000 mg 1,000 mg, Oral, EVERY 8 | | 20 6:31 | | | | | HOURS (3 times per day), First | | AM PDT | | | | | dose (after last modification) on | | | | | | | 12/23/19 at 1400 | | | | | | + +-------+ + +---+---+ +-------+ + +---+---+ | Given | 12/31/19 | 1,000 mg | | | | | 20 9:12 | | | | | | PM PDT | | | | +-------+ + +---+---+ | Given | 12/31/19 | 1,000 mg | | | | | 20 1:13 | | | | | | PM PDT | | | | +-------+ + +---+---+ + +---+ | | | + +---+ | acetaminophen (TYLENOL) tablet | | | 500 mg 500 mg, Oral, ONCE PRN, | | | Pain, Starting 12/29/19 at | | | 1029, For 1 dose, One time if | | | none given within 4 hours., | | | Recovery/Phase I | | + +---+ | | | + +---+ | albuterol 2.5 mg/3 mL nebulizer | | | solution 2.5 mg 2.5 mg, | | | Nebulization, ONCE PRN, Wheezing, | | | Starting 12/29/19 at 1029, | | | For 1 dose, Notify anesthesia if | | | patient is wheezing and does not | | | have a history of asthma or COPD | | | or current smoking., | | | Recovery/Phase I | | + +---+ | | | + +---+ + +-------+ +---------+---+---+ | albuterol 90 mcg/puff inhaler 4 | Given | 01/01/20 | 4 puffs | | | | puff 4 puff, Inhalation, RT | | 20 6:31 | | | | | Q6H, First dose on Mon12/27/19 at | | AM PDT | | | | | 1500, Shake well. Use with | | | | | | | spacer., | | | | | | + +-------+ +---------+---+---+ +-------+ +---------+---+---+ | Given | 01/01/20 | 4 puffs | | | | | 20 12:44 | | | | | | AM PDT | | | | +-------+ +---------+---+---+ | Given | 12/31/19 | 4 puffs | | | | | 20 5:50 | | | | | | PM PDT | | | | +-------+ +---------+---+---+ +---+---+ | | | +---+---+ + +-------+ +--------+---+---+ | allopurinol (ZYLOPRIM) tablet | Given | 01/01/20 | 100 mg | | | | 100 mg 100 mg, Oral, DAILY, | | 20 9:24 | | | | | First dose on 12/22/19 at 0900 | | AM PDT | | | | + +-------+ +--------+---+---+ +-------+ +--------+---+---+ | Given | 12/31/19 | 100 mg | | | | | 20 7:39 | | | | | | AM PDT | | | | +-------+ +--------+---+---+ | Given | 12/30/19 | 100 mg | | | | | 20 8:17 | | | | | | AM PDT | | | | +-------+ +--------+---+---+ + +---+ | | | + +---+ | aluminum & magnesium | | | hydroxide-simethicone (MAALOX | | | PLUS REGULAR STRENGTH) 200-200-20 | | | mg/5 mL suspension 30 mL 30 mL, | | | Oral, EVERY 4 HOURS PRN, | | | Indigestion, Starting 12/28/19 | | | at 1231, Shake well., | | + +---+ | | | + +---+ + +-------+ +--------+---+---+ | ascorbic acid (VITAMIN C) | Given | 01/01/20 | 500 mg | | | | tablet 500 mg 500 mg, Oral, | | 20 9:24 | | | | | DAILY, First dose on 12/22/19 | | AM PDT | | | | | at 0900 | | | | | | + +-------+ +--------+---+---+ +-------+ +--------+---+---+ | Given | 12/31/19 | 500 mg | | | | | 20 7:39 | | | | | | AM PDT | | | | +-------+ +--------+---+---+ | Given | 12/30/19 | 500 mg | | | | | 20 8:20 | | | | | | AM PDT | | | | +-------+ +--------+---+---+ +---+---+ | | | +---+---+ + +-------+ +---------+---+---+ | budesonide-formoterol | Given | 01/01/20 | 2 puffs | | | | (SYMBICORT) 160-4.5 mcg/puff | | 20 9:25 | | | | | inhaler 2 puff 2 puff, | | AM PDT | | | | | Inhalation, RT BID, First dose on | | | | | | | 12/27/19 at 2100, Shake well. | | | | | | | Use with spacer. Rinse mouth | | | | | | | after use., | | | | | | + +-------+ +---------+---+---+ +-------+ +---------+---+---+ | Given | 12/31/19 | 2 puffs | | | | | 20 9:12 | | | | | | PM PDT | | | | +-------+ +---------+---+---+ | Given | 12/31/19 | 2 puffs | | | | | 20 7:38 | | | | | | AM PDT | | | | +-------+ +---------+---+---+ +---+---+ | | | +---+---+ + +-------+ + +---+---+ | carvedilol (COREG) tablet 3.125 | Given | 01/01/20 | 3.125 mg | | | | mg 3.125 mg, Oral, 2 TIMES | | 20 9:24 | | | | | DAILY WITH BREAKFAST & DINNER, | | AM PDT | | | | | First dose on 12/28/19 at 1700 | | | | | | + +-------+ + +---+---+ +-------+ + +---+---+ | Given | 12/31/19 | 3.125 mg | | | | | 20 5:13 | | | | | | PM PDT | | | | +-------+ + +---+---+ | Given | 12/31/19 | 3.125 mg | | | | | 20 7:39 | | | | | | AM PDT | | | | +-------+ + +---+---+ + +---+ | | | + +---+ | dextrose 10% (D10W) infusion | | | at 50 mL/hr, Intravenous, | | | CONTINUOUS PRN, hypoglycemia, | | | Starting 12/21/19 at 2126, | | | Start infusion if unable to | | | maintain blood glucose greater | | | than 70 mg/dL after two rounds of | | | hypoglycemia treatment. Recheck | | | blood glucose 30 minutes after | | | starting D10W then at least | | | hourly and PRN until it is | | | discontinued. Call provider to | | | discuss parameters for D10W | | | discontinuation., | | + +---+ | | | + +---+ + +-------+ +------+---+---+ | dextrose 50% injection 12.5-25 | Given | 12/22/19 | 25 g | | | | g 12.5-25 g, Intravenous, PRN, | | 20 8:43 | | | | | Low Blood Sugar, Starting Sat | | AM PDT | | | | | 12/21/19 at 2126, For blood glucose | | | | | | | 50-69 mg/dl - give 12.5 g For | | | | | | | blood glucose less than 50 mg/dl | | | | | | | - give 25 g, | | | | | | + +-------+ +------+---+---+ + +---+ | | | + +---+ | dextrose 50% injection 12.5-25 | | | g 12.5-25 g, Intravenous, EVERY | | | 15 MIN PRN, Low Blood Sugar, For | | | hypoglycemia. Give 12.5g (25ml) | | | IV if blood glucose 50-69 | | | mg/dL. Give 25g (50ml) IV if | | | blood glucose < 50, Starting Sun | | | 12/29/19 at 1029, Give over 2 min. | | | Repeat in 15 min if blood | | | glucose remains < 70 mg/dL. | | | Repeat blood glucose in 30 min | | | once blood glucose > 70., | | | Recovery/Phase I | | + +---+ | | | + +---+ + +-------+ +--------+---+---+ | ferrous sulfate tablet 325 mg | Given | 01/01/20 | 325 mg | | | | 325 mg, Oral, EVERY OTHER DAY, | | 20 9:24 | | | | | First dose on 12/22/19 at 0900 | | AM PDT | | | | + +-------+ +--------+---+---+ +-------+ +--------+---+---+ | Given | 12/30/19 | 325 mg | | | | | 20 8:20 | | | | | | AM PDT | | | | +-------+ +--------+---+---+ | Given | 12/28/19 | 325 mg | | | | | 20 9:50 | | | | | | AM PDT | | | | +-------+ +--------+---+---+ +---+---+ | | | +---+---+ + +-------+ +--------+---+---+ | HYDROmorphone (DILAUDID) | Given | 12/26/19 | 0.5 mg | | | | injection 1 mg 1 mg, | | 20 4:59 | | | | | Intravenous, EVERY 8 HOURS PRN, | | PM PDT | | | | | Moderate Pain, Severe Pain, Pain, | | | | | | | Starting [facility] 12/26/19 at 1637 | | | | | | + +-------+ +--------+---+---+ +---+---+ | | | +---+---+ + +-------+ +---------+---+ + | insulin lispro (humaLOG) | Given | 01/01/20 | 4 Units | | Leg-Left | | injection (vial) 0-12 Units 0-12 | | 20 11:50 | | | Upper | | Units, Subcutaneous, 3 TIMES | | AM PDT | | | | | DAILY WITH MEALS, First dose on | | | | | | | 12/21/19 at 2145, CORRECTION | | | | | | | SCALE: Blood Glucose (BG) < | | | | | | | 150: None BG | | | | | | | 150-200: DAY: 2 units. NIGHT: | | | | | | | 0 units BG 201-250: DAY: 4 | | | | | | | units. NIGHT: 2 units BG | | | | | | | 251-300: DAY: 6 units. NIGHT: | | | | | | | 4 units BG 301-350: DAY: 8 | | | | | | | units. NIGHT: 6 units BG | | | | | | | 351-400: DAY: 10 units. NIGHT: 8 | | | | | | | units BG > 400 : DAY: 12 | | | | | | | units. NIGHT: 10 units | | | | | | | AND CALL PROVIDER | | | | | | | , Use DAY DOSE for doses | | | | | | | scheduled: AC, NPO, Daytime | | | | | | | [id number] Use NIGHT DOSE for | | | | | | | doses scheduled: HS, | | | | | | | Nighttime [id number] If the BG is | | | | | | | not checked before the patient | | | | | | | starts eating, do not give | | | | | | | correction insulin. Only for use | | | | | | | with U-100 insulin syringe., | | | | | | + +-------+ +---------+---+ + +-------+ +---------+---+ + | Given | 12/31/19 | 2 Units | | Abdomen- | | | 20 5:46 | | | LLQ | | | PM PDT | | | | +-------+ +---------+---+ + | Given | 12/31/19 | 4 Units | | Abdomen- | | | 20 1:13 | | | LLQ | | | PM PDT | | | | +-------+ +---------+---+ + +---+---+ | | | +---+---+ + +-------+ +--------+---+---+ | levoFLOXacin (LEVAQUIN) tablet | Given | 12/31/19 | 250 mg | | | | 250 mg 250 mg, Oral, EVERY OTHER | | 20 7:40 | | | | | DAY, First dose on Mon12/31/19 | | AM PDT | | | | | at 0900, Give 2 hours before or 2 | | | | | | | hours after antacids, iron, or | | | | | | | zinc., Indications: | | | | | | | Healthcare-Associated Pneumonia | | | | | | + +-------+ +--------+---+---+ +---+---+ | | | +---+---+ + +-------+ +-------+---+---+ | meclizine (ANTIVERT) tablet 25 | Given | 12/23/19 | 25 mg | | | | mg 25 mg, Oral, EVERY 8 HOURS | | 20 10:11 | | | | | PRN, Dizziness, Starting Mon | | AM PDT | | | | | 12/23/19 at 0950 | | | | | | + +-------+ +-------+---+---+ + +---+ | | | + +---+ | metoclopramide (REGLAN) 5 mg/mL | | | injection 5 mg 5 mg, | | | Intravenous, EVERY 6 HOURS PRN, | | | Nausea, Vomiting, Starting Sun | | | 12/29/19 at 1107, Protect from | | | light., | | + +---+ | | | + +---+ | ondansetron (ZOFRAN) injection | | | 4 mg 4 mg, Intravenous, EVERY 4 | | | HOURS PRN, Nausea, Vomiting, | | | Starting 12/29/19 at 1029, | | | Recovery/Phase I | | + +---+ | | | + +---+ | ondansetron (ZOFRAN) injection | | | 4 mg 4 mg, Intravenous, EVERY 4 | | | HOURS PRN, Nausea, Vomiting, | | | Starting 12/29/19 at 1115, | | | First line agent, | | + +---+ | | | + +---+ + +-------+ +-------+---+---+ | pantoprazole (PROTONIX) DR | Given | 01/01/20 | 40 mg | | | | tablet 40 mg 40 mg, Oral, 2 | | 20 6:31 | | | | | TIMES DAILY BEFORE MEALS, First | | AM PDT | | | | | dose on Mon12/31/19 at 1630, Do | | | | | | | not cut or crush., Indication: | | | | | | | GERD | | | | | | + +-------+ +-------+---+---+ +-------+ +-------+---+---+ | Given | 12/31/19 | 40 mg | | | | | 20 5:13 | | | | | | PM PDT | | | | +-------+ +-------+---+---+ +---+---+ | | | +---+---+ + +-------+ +-------+---+---+ | pravastatin (PRAVACHOL) tablet | Given | 12/31/19 | 40 mg | | | | 40 mg 40 mg, Oral, NIGHTLY, | | 20 9:12 | | | | | First dose on Mon12/21/19 at 2145 | | PM PDT | | | | + +-------+ +-------+---+---+ +-------+ +-------+---+---+ | Given | 12/30/19 | 40 mg | | | | | 20 8:19 | | | | | | PM PDT | | | | +-------+ +-------+---+---+ | Given | 12/29/19 | 40 mg | | | | | 20 8:53 | | | | | | PM PDT | | | | +-------+ +-------+---+---+ +---+---+ | | | +---+---+ + +-------+ +---------+---+---+ | promethazine (PHENERGAN) (IV | Given | 12/29/19 | 12.5 mg | | | | ONLY) injection 12.5 mg 12.5 mg, | | 20 11:15 | | | | | Intravenous, EVERY 6 HOURS PRN, | | AM PDT | | | | | Nausea, Vomiting, Starting Sun | | | | | | | 12/29/19 at 1106, Vesicant. When | | | | | | | ordered IV push: Dilute to | | | | | | | 10-20mL with NS. Give over 2-3 | | | | | | | minutes into large vein. Do not | | | | | | | give in hand/wrist or foot/ankle | | | | | | | vein. Max dose 12.5mg if giving | | | | | | | peripherally.Infuse in LARGE | | | | | | | Vein Only, | | | | | | + +-------+ +---------+---+---+ +---+---+ | | | +---+---+ + +-------+ +-----+---+---+ | sucralfate (CARAFATE) tablet 1 | Given | 01/01/20 | 1 g | | | | g 1 g, Oral, 4 TIMES DAILY | | 20 6:31 | | | | | BEFORE MEALS & NIGHTLY, First | | AM PDT | | | | | dose on 12/29/19 at 1630, For | | | | | | | administration down a nasogastric | | | | | | | tube, place tablet in an empty | | | | | | | 60mL oral or catheter tip syringe | | | | | | | followed by the drawing up of | | | | | | | 20mL of water. The syringe should | | | | | | | then be allowed to stand with | | | | | | | tip up and cap removed for | | | | | | | approximately 5 minutes to allow | | | | | | | for disintegration of the tablet, | | | | | | | after which the suspension can | | | | | | | be directly administered into the | | | | | | | NG tube from the syringe., | | | | | | + +-------+ +-----+---+---+ +-------+ +-----+---+---+ | Given | 12/31/19 | 1 g | | | | | 20 9:12 | | | | | | PM PDT | | | | +-------+ +-----+---+---+ | Given | 12/31/19 | 1 g | | | | | 20 5:13 | | | | | | PM PDT | | | | +-------+ +-----+---+---+ +---+---+ | | | +---+---+ + +-------+ +-------+---+---+ | terazosin (HYTRIN) capsule 10 | Given | 12/31/19 | 10 mg | | | | mg 10 mg, Oral, DAILY WITH | | 20 5:13 | | | | | DINNER, First dose on 12/21/19 | | PM PDT | | | | | at 2145 | | | | | | + +-------+ +-------+---+---+ +-------+ +-------+---+---+ | Given | 12/30/19 | 10 mg | | | | | 20 5:10 | | | | | | PM PDT | | | | +-------+ +-------+---+---+ | Given | 12/28/19 | 10 mg | | | | | 20 6:00 | | | | | | PM PDT | | | | +-------+ +-------+---+---+ +---+---+ | | | +---+---+ documented in this encounter Additional Health Concerns + + + + | Infection | Noted Time | Resolved Time | + + + + | Rule out COVID-19 | 12/24/2019 12:23 PM | 12/24/2019 2:10 PM | | | PDT | PDT | + + + + documented as of this encounter
--- OUTSIDE RECORDS SUMMARY | ~2020-01-27 | XMS | Encounter Summary ---
Demographics + + + | Address | [address] | | | [place] [address] | + + + | Home Phone | | + + + | Preferred Language | Unknown | + + + | Marital Status | | + + + | Sabianism Affiliation | 1001 | + + + | Race | Unknown | + + + | Ethnic Group | Unknown | + + + Author + + + | Author | [facility] | | | and [place] | + + + | Organization | [facility] | | [...] [place] | | | | | [address] | | + + + + + | Deanna Lawson | ECON | Unknown | | + + + + + Care Team Providers + +------+ + | Care Adhesive Bandage Machine Operator Name | Role | Phone | + +------+ + | Barbara Gilman MD | PCP | | + +------+ + Encounter Details +--------+ + + + + | Date | Type | Department | Care Team | Description | +--------+ + + + + | 04/03/ | Orders Only | [facility] | Tatoleena Charlee | | | 2017 | | [address] | [address] | | | | | [address] | [place] | | | | | [place], [place] | [place] [address] | | | | | [address] | [phone] | | | | | [phone] | | | +--------+ + + + [...] 2019 | Visit | | [address] [facility] | | | | | | [address] [place] | | | | | | [address] | | | | | | | | +--------+ + + + + | 02/05/ | Office | Cardiology | Dina Sanchez DO | | | 2019 | Visit | | [address] | | | | | | [place] | | | | | | [address] | | | | | | | | +--------+ + + + + | 02/09/ | Procedure | Cardiology | | | | 2019 | visit | | | | +--------+ + + + + | 02/17/ | Office | Orthopedic Surgery | LackeyMelquiades | | | 2019 | Visit | | [address] | | | | | | [place], | | | | | | [place] [address] | | | | | | [phone] | | | | | | | | +--------+ + + + + | 03/09/ | Office | Nephrology | Isiah Jade MD | | | 2019 | Visit | | [address] [facility] | | | | | | [address] [place] [address] | | | | | | [address] | | | | | | | | +--------+ + + + + documented as of this encounter Procedures + +--------+ + + + | Procedure Name | Priori | Date/Time | Associated Diagnosis | Comments | | | ty | | | | + +--------+ + + + | ECHO INTERPRETATION | Routin | 04/03/2017 | | Results for this | | OF OUTSIDE FILMS | e | 2:21 PM | | procedure are in the | | | | PDT | | results section. | + +--------+ + + + documented in this encounter Results ECHO Interpretation of Outside Films (04/03/2017 2:21 PM PDT) + + | Specimen | + + | | + + + + + | Impressions | Performed At | + + + | 1. The left ventricle is normal in size, wall thickness and systolic | | | function EF 55-60%. 2. The right ventricle is moderately enlarged | | | with mildly impaired systolic function. 3. Mild mitral regurgitation | | | with severely enlarged left atrium. 4. Moderate tricuspid | | | regurgitation with moderate to severe pulmonary hypertension RVSP 62 | | | mmHg. 5. There is no pericardial effusion. | | + + + + + + | Narrative | Performed At | + + + | Patient Name: Andres Guzmán Date of : 1930 | | | Performing Physician: Vikki Godoy | | | | | | INDICATIONS A-Fib CONCLUSIONS 1. The | | | left ventricle is normal in size, wall thickness and systolic function | | | EF 55-60%. 2. The right ventricle is moderately enlarged with mildly | | | impaired systolic function. 3. Mild mitral regurgitation with | | | severely enlarged left atrium. 4. Moderate tricuspid regurgitation | | | with moderate to severe pulmonary hypertension RVSP 62 mmHg. 5. There | | | is no pericardial effusion. FINDINGS -------- ECG rhythm: | | | Atrial fibrillation. Study: A 2-dimensional transthoracic | | | echocardiogram with m-mode, spectral and color flow Doppler was | | | perfomed. Study: This was a technically adequate study. Left | | | Ventricle: Overall left ventricular systolic function is normal with, | | | an EF between 60 - 65 %. Left Ventricle: The left ventricle cavity | | | size is normal. Left Ventricle: Left ventricular wall thickness is | | | normal. Left Ventricle: Basal inferior hypokinesis. Right Ventricle: | | | The right ventricle is moderately enlarged. Right Ventricle: The | | | right ventricular systolic function is at the low end of normal. | | | Right Ventricle: Pacer/ICD wire seen. Left Atrium: The left atrium is | | | markedly enlarged. Right Atrium: The right atrium is moderately | | | enlarged. Aortic Valve: Aortic valve is trileaflet. Aortic Valve: | | | The aortic valve is mildly calcified. Aortic Valve: There is mild | | | aortic regurgitation. Aortic Valve: There is no evidence of aortic | | | stenosis. Mitral Valve: Mild mitral regurgitation is present. Mitral | | | Valve: Mild mitral annular calcification present. Tricuspid Valve: | | | The tricuspid valve appears structurally normal. Tricuspid Valve: | | | Moderate tricuspid regurgitation present. Tricuspid Valve: There is | | | moderate to severe pulmonary hypertension. Tricuspid Valve: The right | | | ventricular systolic pressure (pulmonary artery systolic pressure), | | | as measured by Doppler, is 62.87mmHg. Pulmonic Valve: The pulmonic | | | valve is normal. Pulmonic Valve: Mild pulmonic regurgitation. | | | Pericardium: There is no pericardial effusion. Pericardium: No | | | pleural effusion seen. IVC/Hepatic Veins: The IVC is dilated (>2.5cm) | | | and collapses <50% with sniff, consistent with central venous | | | pressures of 15-20mmHg. 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 | | | 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 | | | MEASUREMENTS RA Area: 25.42 cm2 Ao asc: 3.67 cm | | | Ao Diam: 4.10 cm Ao sinus: 4.[address] junct: 3.43 cm | | | IVC: 2.76 cm LA Diam: 5.20 cm LA Major: 6.43 cm | | | EDV(Teich): 146.44 ml IVSd: 0.99 cm LVIDd: 5.48 cm LVPWd: | | | 0.86 cm LVOT Area: 3.66 cm2 LVOT Diam: 2.15 cm %FS: | | | 30.74 % EF(Teich): 57.74 % ESV(Teich): 61.87 ml LVIDs: | | | 3.79 cm SV(Teich): 84.57 ml RA Major: 6.62 cm RV Major: | | | 7.03 cm RVIDd: 3.94 cm LVEF MOD A2C: 64.20 % SV MOD A2C: | | | 80.30 ml LVEF MOD A4C: 62.16 % SV MOD A4C: 51.24 ml EF | | | Biplane: 63.40 % LVEDV MOD BP: 101.80 ml LVESV MOD BP: | | | 37.25 ml LVEDV MOD A2C: 125.07 ml LVLd A2C: 7.86 cm LVEDV MOD | | | A4C: 82.43 ml LVLd A4C: 7.79 cm LVESV MOD A2C: 44.76 ml | | | LVLs A2C: 6.64 cm LVESV MOD A4C: 31.19 ml LVLs A4C: 6.63 cm | | | LAESV(A-L): 102.26 ml LAESV Index (A-L): 55.88 ml/m2 LAAs | | | A2C: 25.46 cm2 LAESV A-L A2C: 88.15 ml LALs A2C: 6.24 cm | | | LAAs A4C: 29.53 cm2 LAESV A-L A4C: 110.72 ml LALs A4C: 6.68 | | | cm RAAs: 31.00 cm2 RAESV A-L: 119.55 ml RAESV MOD: 117.88 | | | ml RALs: 6.82 cm TAPSE: 1.87 cm AV maxP.43 mmHg AV | | | meanP.22 mmHg AV Vmax: 1.05 m/s AV Vmean: 0.69 m/s AV | | | VTI: 18.19 cm JACLYN Vmax: 2.31 cm2 JACLYN (VTI): 2.75 cm2 AVAI | | | Vmax: 0.00 cm2/m2 AVAI (VTI): 0.00 cm2/m2 LVOT maxP.76 | | | mmHg LVOT meanP.05 mmHg LVSI Dopp: 27.38 ml/m2 LVSV Dopp: | | | 50.12 ml LVOT Vmax: 0.66 m/s LVOT Vmean: 0.48 m/s LVOT | | | VTI: 13.68 cm MV A Good: 0.02 m/s MV DecT: 135.32 ms MV E | | | Good: 0.84 m/s MV E/A Ratio: 38.78 MV PHT: 39.24 ms MVA By | | | PHT: 5.60 cm2 Septal e': 0.03 m/s Septal E/e': 21.63 | | | Lateral e': 0.08 m/s Lateral E/e': 10.19 RAP: 15 mmHg | | | RVSP: 62.86 mmHg TR maxP.86 mmHg TR Vmax: 3.45 m/s | | | Desulfurizer Hand: DAR Authenticated by: Vikki Godoy Report | | | Date/Time: -- 10_[id number] | | + + + + ------+ | Procedure Note | + ------+ | Kobe Leonides Conversion - 04/11/2019 6:07 PM PDT Patient Name: Francisco Guzmán of | | : 1930 Performing Physician: Jayne, | | [place] INDICATIONS------- | | ----A-Fib CONCLUSIONS 1. The left ventricle is normal in size, wall thickness | | and systolic function EF 55-60%.2. The right ventricle is moderately enlarged with | | mildly impaired systolic function.3. Mild mitral regurgitation with severely enlarged | | left atrium.4. Moderate tricuspid regurgitation with moderate to severe pulmonary | | hypertension RVSP 62 mmHg.5. There is no pericardial effusion. FINDINGS--------ECG | | rhythm: Atrial fibrillation.Study: A 2-dimensional transthoracic echocardiogram with | | m-mode, spectral and color flow Doppler was perfomed.Study: This was a technically | | adequate study.Left Ventricle: Overall left ventricular systolic function is normal | | with, an EF between 60 - 65 %.Left Ventricle: The left ventricle cavity size is | | normal.Left Ventricle: Left ventricular wall thickness is normal.Left Ventricle: Basal | | inferior hypokinesis.Right Ventricle: The right ventricle is moderately enlarged.Right | | Ventricle: The right ventricular systolic function is at the low end of normal.Right | | Ventricle: Pacer/ICD wire seen.Left Atrium: The left atrium is markedly enlarged.Right | | Atrium: The right atrium is moderately enlarged.Aortic Valve: Aortic valve is | | trileaflet.Aortic Valve: The aortic valve is mildly calcified.Aortic Valve: There is | | mild aortic regurgitation.Aortic Valve: There is no evidence of aortic stenosis.Mitral | | Valve: Mild mitral regurgitation is present.Mitral Valve: Mild mitral annular | | calcification present.Tricuspid Valve: The tricuspid valve appears structurally | | normal.Tricuspid Valve: Moderate tricuspid regurgitation present.Tricuspid Valve: There | | is moderate to severe pulmonary hypertension.Tricuspid Valve: The right ventricular | | systolic pressure (pulmonary artery systolic pressure), as measured by Doppler, is | | 62.87mmHg.Pulmonic Valve: The pulmonic valve is normal.Pulmonic Valve: Mild pulmonic | | regurgitation.Pericardium: There is no pericardial effusion.Pericardium: No pleural | | effusion seen.IVC/Hepatic Veins: The IVC is dilated (>2.5cm) and collapses <50% with | | sniff, consistent with central venous pressures of 15-20mmHg.Aorta: Sinus of Valsalva | | dilatation 4.1 cm.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 | | MEASUREMENTS RA Area: 25.42 cm2Ao asc: 3.67 cmAo Diam: 4.10 cmAo | | sinus: 4.[address] junct: 3.43 cmIVC: 2.76 cmLA Diam: 5.20 cmLA Major: 6.43 | | cmEDV(Teich): 146.44 mlIVSd: 0.99 cmLVIDd: 5.48 cmLVPWd: 0.86 cmLVOT Area: | | 3.66 [id number] Diam: 2.15 cm%FS: 30.74 %EF(Teich): 57.74 %ESV(Teich): 61.87 | | mlLVIDs: 3.79 cmSV(Teich): 84.57 mlRA Major: 6.62 cmRV Major: 7.03 cmRVIDd: | | 3.94 cmLVEF MOD A2C: 64.20 %SV MOD A2C: 80.30 mlLVEF MOD A4C: 62.16 %SV MOD A4C: | | 51.24 mlEF Biplane: 63.40 %LVEDV MOD BP: 101.80 mlLVESV MOD BP: 37.25 mlLVEDV MOD | | A2C: 125.07 mlLVLd A2C: 7.86 cmLVEDV MOD A4C: 82.43 mlLVLd A4C: 7.79 cmLVESV | | MOD A2C: 44.76 mlLVLs A2C: 6.64 cmLVESV MOD A4C: 31.19 mlLVLs A4C: 6.63 | | cmLAESV(A-L): 102.26 mlLAESV Index (A-L): 55.88 ml/m2LAAs A2C: 25.46 [id number] A-L | | A2C: 88.15 mlLALs A2C: 6.24 cmLAAs A4C: 29.53 [id number] A-L A4C: 110.72 mlLALs | | A4C: 6.68 cmRAAs: 31.00 [id number] A-L: 119.55 mlRAESV MOD: 117.88 mlRALs: 6.82 | | cmTAPSE: 1.87 cmAV maxP.43 mmHgAV meanP.22 mmHgAV Vmax: 1.05 m/Armen | | Vmean: 0.69 m/Armen VTI: 18.19 cmAVA Vmax: 2.31 cm2AVA (VTI): 2.75 [id number] Vmax: | | 0.00 cm2/m2AVAI (VTI): 0.00 cm2/m2LVOT maxP.76 mmHgLVOT meanP.05 mmHgLVSI | | Dopp: 27.38 ml/m2LVSV Dopp: 50.12 mlLVOT Vmax: 0.66 m/sLVOT Vmean: 0.48 m/sLVOT | | VTI: 13.68 cmMV A Good: 0.02 m/sMV DecT: 135.32 msMV E Good: 0.84 m/sMV E/A | | Ratio: 38.78MV PHT: 39.24 msMVA By PHT: 5.60 [id number] e': 0.03 m/sSeptal E/e': | | 21.63Lateral e': 0.08 m/sLateral E/e': 10.19RAP: 15 mmHgRVSP: 62.86 mmHgTR | | maxP.86 mmHgTR Vmax: 3.45 m/s Desulfurizer Hand: DENISSEuthenticated by: Jayne | | [facility] MexicohedRep[facility]az Date/Time: -- [id number] IMPRESSION: 1. The left ventricle is | | normal in size, wall thickness and systolic function EF 55-60%.2. The right ventricle is | | moderately enlarged with mildly impaired systolic function.3. Mild mitral regurgitation | | with severely enlarged left atrium.4. Moderate tricuspid regurgitation with moderate to | | severe pulmonary hypertension RVSP 62 mmHg.5. There is no pericardial effusion. | |RA Area: 25.42 cm2 | |Ao asc: 3.67 cm | |Ao Diam: 4.10 cm | |Ao sinus: 4.09 cm | |Ao st junct: 3.43 cm | |IVC: 2.76 cm | |LA Diam: 5.20 cm | |LA Major: 6.43 cm | |EDV(Teich): 146.44 ml | |IVSd: 0.99 cm | |LVIDd: 5.48 cm | |LVPWd: 0.86 cm | |LVOT Area: 3.66 cm2 | |LVOT Diam: 2.15 cm | |%FS: 30.74 % | |EF(Teich): 57.74 % | |ESV(Teich): 61.87 ml | |LVIDs: 3.79 cm | |SV(Teich): 84.57 ml | |RA Major: 6.62 cm | |RV Major: 7.03 cm | |RVIDd: 3.94 cm | |LVEF MOD A2C: 64.20 % | |SV MOD A2C: 80.30 ml | |LVEF MOD A4C: 62.16 % | |SV MOD A4C: 51.24 ml | |EF Biplane: 63.40 % | |LVEDV MOD BP: 101.80 ml | |LVESV MOD BP: 37.25 ml | |LVEDV MOD A2C: 125.07 ml | |LVLd A2C: 7.86 cm | |LVEDV MOD A4C: 82.43 ml | |LVLd A4C: 7.79 cm | |LVESV MOD A2C: 44.76 ml | |LVLs A2C: 6.64 cm | |LVESV MOD A4C: 31.19 ml | |LVLs A4C: 6.63 cm | |LAESV(A-L): 102.26 ml | |LAESV Index (A-L): 55.88 ml/m2 | |LAAs A2C: 25.46 cm2 | |LAESV A-L A2C: 88.15 ml | |LALs A2C: 6.24 cm | |LAAs A4C: 29.53 cm2 | |LAESV A-L A4C: 110.72 ml | |LALs A4C: 6.68 cm | |RAAs: 31.00 cm2 | |RAESV A-L: 119.55 ml | |RAESV MOD: 117.88 ml | |RALs: 6.82 cm | |TAPSE: 1.87 cm | |AV maxP.43 mmHg | |AV meanP.22 mmHg | |AV Vmax: 1.05 m/s | |AV Vmean: 0.69 m/s | |AV VTI: 18.19 cm | |JACLYN Vmax: 2.31 cm2 | |JACLYN (VTI): 2.75 cm2 | |AVAI Vmax: 0.00 cm2/m2 | |AVAI (VTI): 0.00 cm2/m2 | |LVOT maxP.76 mmHg | |LVOT meanP.05 mmHg | |LVSI Dopp: 27.38 ml/m2 | |LVSV Dopp: 50.12 ml | |LVOT Vmax: 0.66 m/s | |LVOT Vmean: 0.48 m/s | |LVOT VTI: 13.68 cm | |MV A Good: 0.02 m/s | |MV DecT: 135.32 ms | |MV E Good: 0.84 m/s | |MV E/A Ratio: 38.78 | |MV PHT: 39.24 ms | |MVA By PHT: 5.60 cm2 | |Septal e': 0.03 m/s | |Septal E/e': 21.63 | |Lateral e': 0.08 m/s | |Lateral E/e': 10.19 | |RAP: 15 mmHg | |RVSP: 62.86 mmHg | |TR maxP.86 mmHg | |TR Vmax: 3.45 m/s | | | |Desulfurizer Hand: | |Authenticated by: Vikki Godoy | |Report Date/Time: -- 05_[id number]_87:23:50 | | | |IMPRESSION: | |1. The left ventricle is normal in size, wall thickness and systolic function EF 55-60%. | |2. The right ventricle is moderately enlarged with mildly impaired systolic function. | |3. Mild mitral regurgitation with severely enlarged left atrium. | |4. Moderate tricuspid regurgitation with moderate to severe pulmonary hypertension RVSP 62 mmHg. | |5. There is no pericardial effusion. | + ------+ documented in this encounter Visit Diagnoses Not on filedocumented in this encounter"
--- OUTSIDE RECORDS SUMMARY | ~2020-01-27 | XMS | Encounter Summary ---
Demographics + + + | Address | [address] | | | [place] [address] | + + + | Home Phone | | + + + | Preferred Language | Unknown | + + + | Marital Status | | + + + | Jew Affiliation | 1001 | + + + | Race | Unknown | + + + | Ethnic Group | Unknown | + + + Author + + + | Author | [facility] | | | and [place] | + + + | Organization | [facility] | | [...] [place] | | | | | [address] | | + + + + + | Deanna Lawson | ECON | Unknown | | + + + + + Care Team Providers + +------+ + | Care Hand Stapler Name | Role | Phone | + +------+ + PCP | Unavailable | + +------+ + Encounter Details +--------+ + + + + | Date | Type | Department | Care Team | Description | +--------+ + + + + | 01/07/ | Orders Only | [facility] | Conversion | | | 2019 | | NEPRHOLOGY OPHELIA | Transaction, | | | | | [address] | Provider Unknown | | | | | [address] [place], [place] | [phone] | | | | | [address] | | | | | | [phone] | | | +--------+ + + + [...] 2019 | Visit | | [address] [facility] | | | | | | [address] [place] [address] | | | | | | [address] | | | | | | | | +--------+ + + + + | 02/05/ | Office | Cardiology | Dina Sanchez DO | | | 2019 | Visit | | [address] | | | | | | [place] | | | | | | [address] | | | | | | | | +--------+ + + + + | 02/09/ | Procedure | Cardiology | | | | 2019 | visit | | | | +--------+ + + + + | 02/17/ | Office | Orthopedic Surgery | Melquiades Baez | | | 2019 | Visit | | [address] | | | | | | [facility] | | | | | | [place] [address] | | | | | | [phone] | | | | | | | | +--------+ + + + + | 03/09/ | Office | Nephrology | Isiah Jade MD | | | 2019 | Visit | | [address] [facility] | | | | | | [address] [place] | | | | | | [address] | | | | | | | | +--------+ + + + + documented as of this encounter Procedures + +--------+ + + + | Procedure Name | Priori | Date/Time | Associated Diagnosis | Comments | | | ty | | | | + +--------+ + + + | EXTERNAL LAB: CBC | Routin | 01/07/2019 | | Results for this | | | e | 9:51 AM | | procedure are in the | | | | PDT | | results section. | + +--------+ + + + | URINALYSIS, | Routin | 01/07/2019 | | Results for this | | MICROSCOPIC ONLY | e | 9:51 AM | | procedure are in the | | | | PDT | | results section. | + +--------+ + + + | PROTEIN/CREATININE | Routin | 01/07/2019 | | Results for this | | RATIO, URINE | e | 9:51 AM | | procedure are in the | | | | PDT | | results section. | + +--------+ + + + | URIC ACID | Routin | 01/07/2019 | | Results for this | | | e | 9:51 AM | | procedure are in the | | | | PDT | | results section. | + +--------+ + + + | BASIC METABOLIC | Routin | 01/07/2019 | | Results for this | | PANEL | e | 9:51 AM | | procedure are in the | | | | PDT | | results section. | + +--------+ + + + documented in this encounter Results Protein/Creatinine Ratio, Urine (01/07/2019 9:51 AM PDT) + + + + + + | Component | Value | Ref Range | Performed | Pathologist | | | | | At | Signature | + + + + + + | Protein/Cre | 528.6 (A) | 0 - 150 | EXTERNAL | | | at Ratio | | | LAB | | [...] | | | + +---------+ + + Urinalysis, Microscopic Only (01/07/2019 9:51 AM PDT) + + + + + + | Component | Value | Ref Range | Performed | Pathologist | | | | | At | Signature | + + + + + + | Color | Yellow | | EXTERNAL | | | | | | LAB | | + + + + + + | Clarity | Clear | | EXTERNAL | | | | | | LAB | | + + + + + + | Specific | 1.013 | 1.005 - 1.030 | EXTERNAL | | | [place], | | | LAB | | | Urine | | | | | + + + + + + | Leukocyte | Negative | | EXTERNAL | | | Esterase, | | | LAB | | | Urine | | | | | + + + + + + | Nitrite, | Negative | | EXTERNAL | | | Urine | | | LAB | | + + + + + + | Urobilinoge | Normal | | EXTERNAL | | | n, Urine | | | LAB | | + + + + + + | Protein, | TraceComment: 30 | | EXTERNAL | | | Urine | | | LAB | | + + + + + + | pH, Urine | 5 | 5 - 9 | EXTERNAL | | | | | | LAB | | + + + + + + | Blood, | Negative | | EXTERNAL | | | Urine | | | LAB | | + + + + + + | Ketones | Negative | | EXTERNAL | | | | | | LAB | | + + + + + + | Bilirubin, | Negative | | EXTERNAL | | | Urine | | | LAB | | + + + + + + | Glucose, | Negative | | EXTERNAL | | | Urine | | | LAB | | + [...] | + +---------+ + + External Lab: [facility] (01/07/2019 9:51 AM PDT) + + + + + + | Component | Value | Ref Range | Performed | Pathologist | | | | | At | Signature | + + + + + + | WBC | 5.9 | 4.5 - 11.0 | EXTERNAL | | | | | | LAB | | + + + + + + | Red Blood | 3.31 (A) | 4.3 - 5.7 10 | EXTERNAL | | | Cells | | | LAB | | | Counted | | | | | + + + + + + | Hemoglobin | 10.8 (A) | 13.5 - 18.0 | EXTERNAL | | | | | g/dL | LAB | | + + + + + + | Hematocrit, | 31.0 (A) | 41 - 50 % | EXTERNAL | | | POC | | | LAB | | + + + + + + | MCV | 96.1 | 81 - 99 fL | EXTERNAL | | | | | | LAB | | + + + + + + | MCH | 33 | 27 - 33 pg | EXTERNAL | | | | | | LAB | | + + + + + + | MCHC | 34 | 30 - 36 g/dL | EXTERNAL | | | | | | LAB | | + + + + + + | Platelet | 157 | 140 - 440 K/ L | EXTERNAL | | | Count | | | LAB | | | Plasma | | | | | + + + + + + | RDW-CV | 13.7 | 10.5 - 15.0 % | EXTERNAL | | | | | | LAB | | + + + + + + | MPV | | fL | EXTERNAL | | | | | | LAB | | + + + + + + | Differentia | | | EXTERNAL | | | l Type | | | LAB | | + + + + + + | % Segmented | 77.2 | 39 - 80 % | EXTERNAL | | | | | | LAB | | | Neutrophils | | | | | + + + + + + | % | 12.8 (A) | 24 - 44 % | EXTERNAL | | | Lymphocytes | | | LAB | | + + + + + + | % Monocytes | 6.5 | 0 - 12 % | EXTERNAL | | | | | | LAB | | + + + + + + | % | 2.7 | 0 - 6 % | EXTERNAL | | | Eosinophils | | | LAB | | + + + + + + | % Basophils | 0.8 | 0 - 2 % | EXTERNAL | | | | | | LAB | | + + + + + + | Absolute | | / L | EXTERNAL | | | Segmented | | | LAB | | | Neutrophils | | | | | + + + + + + | Absolute | | / L | EXTERNAL | | | Lymphocytes | | | LAB | | + + + + + + | Absolute | | / L | EXTERNAL | | | Monocytes | | | LAB | | + + + + + + | Absolute | | / L | EXTERNAL | | | Eosinophils | | | LAB | | + + + + + + | Absolute | | / L | EXTERNAL | | | Basophils | | | LAB | | + + + + + + + + | Specimen | + + | Blood specimen | | (specimen) | + + + +---------+ + + | Performing | Address | City/State/Zipcode | Phone Number | | Organization | | | | + +---------+ + + | EXTERNAL LAB | | | | + +---------+ + + Uric Acid (01/07/2019 9:51 AM PDT) + + + + + + | Component | Value | Ref Range | Performed | Pathologist | | | | | At | Signature | + + + + + + | Uric Acid | 11.3 (A) | 4.4 - 7.6 | EXTERNAL | | | | | [...] + +---------+ + + Basic Metabolic Panel (01/07/2019 9:51 AM PDT) + + + + + + | Component | Value | Ref Range | Performed | Pathologist | | | | | At | Signature | + + + + + + | Glucose, | 226 (A) | 70 - 100 mg/dL | EXTERNAL | | | Fasting | | | LAB | | + + + + + + | BUN | 40 (A) | 6 - 23 mg/dL | EXTERNAL | | | | | | LAB | | + + + + + + | Creatinine | 1.66 (A) | 0.70 - 1.11 | EXTERNAL | | | | | mg/dL | LAB | | + + + + + + | BUN/Creatin | 24.1 | 6.0 - 28.6 | EXTERNAL | | | ine Ratio | | | LAB | | + + + + + + | Calcium | 9.0 | 8.5 - 10.3 | EXTERNAL | | | | | mg/dL | LAB | | + + + + + + | Na | 137 | 132 - 143 | EXTERNAL | | | | | mmol/L | LAB | | + + + + + + | K | 4.3 | 3.6 - 5.1 | EXTERNAL | | | | | mmol/L | LAB | | + + + + + + | Cl | 100 | 95 - 112 mmol/L | EXTERNAL | | | | | | LAB | | + + + + + + | CO2 | 22 | 19 - 31 mmol/L | EXTERNAL | | | | | | LAB | | + + + + + + | Anion Gap | 19.3 | 7 - 21 mmol/L | EXTERNAL | | | | | | LAB | | + + + + + + | Estimated | 39 (A) | 60 - 140 mg/dL | EXTERNAL | | | GFR | | | LAB | | + [...]
--- OUTSIDE RECORDS SUMMARY | ~2020-01-27 | XMS | Encounter Summary ---
Demographics + + + | Address | [address] | | | [place] [address] | + + + | Home Phone | | + + + | Preferred Language | Unknown | + + + | Marital Status | | + + + | Caodaism Affiliation | 1001 | + + + [...] [place] | | | | | [address] | | + + + + + | Deanna Lawson | ECON | Unknown | | + + + + + Care Team Providers + +------+ + | Care Installer Soft Top Name | Role | Phone | + +------+ + | Barbara Gilman MD | PCP | | + +------+ + Encounter Details +--------+ + + + + | Date | Type | Department | Care Team | Description | +--------+ + + + + | 08/08/ | Orders Only | [facility] | Charlee Oswald | | | 2017 | | CARDIOLOGY [facility] | [address] | | | | | [address] | [address] | | | | | [address] | [place] [address] | | | | | [place] | [phone] | | | | | [address] | | | | | | [phone] | | | +--------+ + + + [...] 2019 | Visit | | [address] [facility] | | | | | | [address] [place] | | | | | | [address] | | | | | | | | +--------+ + + + + | 02/05/ | Office | Cardiology | Dina Sanchez DO | | | 2019 | Visit | | [address] | | | | | | [place] | | | | | | [address] | | | | | | | | +--------+ + + + + | 02/09/ | Procedure | Cardiology | | | | 2019 | visit | | | | +--------+ + + + + | 02/17/ | Office | Orthopedic Surgery | Melquiades Baez | | 2019 | Visit | | DO [address] | | | | | | [place], | | | | | | [place] [address] | | | | | | [phone] | | | | | | | | +--------+ + + + + | 03/09/ | Office | Nephrology | Isiah Jade MD | | | 2019 | Visit | | [address] [facility] | | | | | | [address] [place] | | | | | | [address] | | | | | | | [...]
--- OUTSIDE RECORDS SUMMARY | ~2020-01-27 | XMS | Encounter Summary ---
Demographics + + + | Address | [address] | | | [place] [address] | + + + | Home Phone | | + + + | Preferred Language | Unknown | + + + | Marital Status | | + + + | Faith Affiliation | [id number] | + + + [...] [address] | | | | | [place] | | | | | [address] | | + + + + + | Deanna Lawson | ECON | Unknown | | + + + + + Care Team Providers + +------+ + | Care Strategic Debriefing Specialist Name | Role | Phone | [...] + + | 12/21/ | Surgery | [facility] | Melquiades Baez | NAILING IM BETSY FEMUR | | 2019 | [facility] | [address] | - [address]MA [address] | | | | OPERATING RO[address] | [facility], | | | | | [address] | [place] [address] | | | | | [place], [place] | [phone] | | | | | [address] | | | | | | [phone] | | | +--------+---------+ + + + [...] was on board. No immediate indication for CURRICULUM ASSISTANT. Patient was also seen by physical therapy and occupational therapy and was recommended for discharging to SNF. However patient will b e going to [facility] at this time. Patient also had [...] No CVA tenderness, no spinal tenderness Disposition: [facility] Condition: Fair No discharge procedures on file. [...] + documented as of this encounter Progress Alexander Clay MD - 01/01/2020 2:16 PM PDT [id number] [...] BUNCREARATIO 30 01/01/2020 PTH 72.57 (A) 04/01/2019 [id number] 25.2 (L) 12/27/2019 CALCIUM 8.6 01/01/2020 PHOS [...] been following up with ENEDINA mena in [place]. He has unrecovered acute kidney injury and a higher baseline creatinine. At this time there is no clinical uremia, refractory volume overload, refractory acidosis, refractory hyperkalemia and no urgent indication of starting CURRICULUM ASSISTANT. Neither is there an indication for diagnostic [...] Incentive spirometry. Transfuse Prn. No indication for CURRICULUM ASSISTANT for now. Await renal recovery. On discharge [...] was completed later after rounds. Dictation software, Appifier, was used which may contain error for [...] but not limited to potential need for CURRICULUM ASSISTANT . This is a patient with multiple [...] is waiting downstairs. Deanna Doe RN, CMSRN, [facility] Inpatient Wound Ostomy Care [phone] 01/01/2020 11:46 AM Chai, Savana Irving RN [...] BUNCREARATIO 25 12/31/2019 PTH 72.57 (A) 04/01/2019 [id number] 25.2 (L) 12/27/2019 CALCIUM 8.5 12/31/2019 PHOS [...] been following up with ENEDINA mena in [place]. He has unrecovered acute kidney injury and a higher baseline creatinine. At this time there is no clinical uremia, refractory volume overload, refractory acidosis, refractory hyperkalemia and no urgent indication of starting CURRICULUM ASSISTANT. Neither is there an indication for diagnostic [...] Incentive spirometry. Transfuse Prn. No indication for CURRICULUM ASSISTANT for now. Await renal recovery. I discussed [...] was completed later after rounds. Dictation software, Appifier, was used which may contain error for [...] but not limited to potential need for CURRICULUM ASSISTANT . This is a patient with multiple [...] Greene MD 12/31/2019 11:38 AM Mary[place]en [place] [facility] - 12/31/2019 10:58 AM PDT . ORTHOPEDIC [...] injuries: see wound RN note for treatment. [facility] ed, continue wound care at swing bed, send with extra dressing supplies. *Metabolic bone disorder: elevated PTH and phosphorus. Treatment per red cross worker (see thei r note). Subjective No chest [...] pt. PURVI Goodrich RN CWON 12/30/19 14:53 atti, Jerry Malik MD - 12/30/2019 1:46 PM PDT Service: Hospitalist Daily Progress Note Andres Guzmán 89 y.o. : 1930 SEX: male PCP: Barbara Gilman MD Hospital Day: LOS: 9 SUBJECTIVE Patient Summary: Patient is an 89-year-old male with past medical history of HTN, DM Type 2, CKD Stage III w ith baseline creatinine 1.7 who was admitted as a transfer from [facility] due t o a mechanical fall [...] finding placement and he was accepted by [facility] in [place], [place] for rehabilitation purposes. Hospital stay was [...] Medications Current Facilty-Administered PRN Medications Ordered in [facility] Medication Dose Route Frequency Provider Last [...] but remains week, he is accepted at [facility] in [place] with discharge plans tomorrow for rehabilit ation if remains stable. Will continue PT/OT, wound care services and monitor progress. Acute Kidney Injury on Chronic Kidney Disease Stage 3: This was likely due to ATN precipit ated by dehydration & blood loss, Clinically stable and creatinine is down to 3.0 range, [facility] hrology service on board and Dr. Beckford [...] discharge plans to [facility] in [facility] tomorrow. DVT prophylaxis with SCD's only due to risks of bleeding. Discharge plans tomorrow to [facility] in [place], [place] for rehabi litation. Called his daughter Ms. Huerta and left a message with updated information at phone number [phone]. Jerry Chino MD 12/30/2019 olden Cantu PA - 12/30/2019 12:35 PM PDTFormatting of this note might be different from the [facility] Service: Gastroenterology Consult Progress Note Hospital Day: LOS: 9 days SUBJECTIVE Patient Summary: This is an 89-year-old male with multiple medical problems and a his tory of hypertension, diabetes, CKD stage III who was transferred from [facility] t o a fall and he [...] motor deficits. PSYCHIATRIC: Appropriate, affect appears normal [facility] Gastroenterology Patient Name: Andres Guzmán Procedure [...] physician, the nurse, the anesthesiologist and the dictaphone technician in the pre-procedure area in the [...] successful. Thermal coagulation with Gold probe 7 Brazilian x 5 pulses was successful with hemostasis. [...] 12/29/2019 8:36 AM Number of Addenda: 0 [facility] DATA Lab Results Component Value Date [...] Lamont Hernandez MD - 12/31/2019 2:17 PM [id number] male with GI bleeding due to duodenal ulcer with visible vessel. The ulcer and visible vessel were tr eated with injection and gold probe thermal coagulation. The patient was seen and examined by me personally. The case was discussed with the physician's housekeeping assistant and I agree with the assessment and p tim as outlined in the note. Continue PPI IV infusion for total of 72 hours and then when patient is discharged he must be on twice daily PPI for 8 weeks. Resume Eliquis in 1 week. Lamont Hernandez MD Gastroenterology [place], Marycarmen Hubbard [facility] - 12/30/2019 11:05 AM PDTFormatting of [...] status. Disposition: Plan to [facility], once medically stable and cleared by [...] Dr. Enoch Thompson. History of stroke in 2007 with residual right-sided weakness Type 2 diabetes [...] BUNCREARATIO 23 12/30/2019 PTH 72.57 (A) 04/01/2019 [id number] 25.2 (L) 12/27/2019 CALCIUM 8.6 12/30/2019 PHOS [...] been following up with ENEDINA mena in [place]. That had improved with nonoliguric state but now seems to have leveled off at around 3 and this may be reflection of unrecovered acute kidney injury and a higher baseline creatinine. At this time there is no clinical uremia, refractory volume overload, refractory acidosis, refractory hyperkalemia and no urgent indication of starting CURRICULUM ASSISTANT. Neither is there an indication for diagnostic [...] Incentive spirometry. Transfuse Prn. No indication for CURRICULUM ASSISTANT for now. Await renal recovery. I discussed [...] was completed later after rounds. Dictation software, Appifier, was used which may contain error for [...] but not limited to potential need for CURRICULUM ASSISTANT . This is a patient with multiple [...] BUNCREARATIO 30 12/29/2019 PTH 72.57 (A) 04/01/2019 [id number] 25.2 (L) 12/27/2019 CALCIUM 8.7 12/29/2019 PHOS [...] been following up with ENEDINA mena in [place]. That seems to be improving with nonoliguric state and small reduction in creatinine. At this time there is no clinical uremia, refractory volume overload, refractory acidosis, refractory hyperkalemia and no urgent indication of starting CURRICULUM ASSISTANT. Neither is there an indication for diagnostic [...] Incentive spirometry. Transfuse Prn. No indication for CURRICULUM ASSISTANT for now. Await renal recovery. I discussed [...] was completed later after rounds. Dictation software, Appifier, was used which may contain error for [...] but not limited to potential need for CURRICULUM ASSISTANT . acetaminophen 1,000 mg Oral 3 times [...] who was admitted as a transfer from [facility] due t o a mechanical fall [...] placement and he was accepted by [facility] Swing bed [facility] in [place], [place] for rehabilitation purposes. Hospita l stay [...] but needs rehabilitation, he is accepted by [facility] in [place], [place] with discharge plans early next weeks [...] another 1 to 2 to SNF in [place], [place] if remains stable and improve d. Called his daughter Ms. Huerta and updated her about plans at phone number [phone]. Jerry Chino MD 12/29/2019 acon, Norma Kilpatrick RN - 12/29/2019 6:02 AM PDTPatient has [...] BUNCREARATIO 28 12/28/2019 PTH 72.57 (A) 04/01/2019 [id number] 25.2 (L) 12/27/2019 CALCIUM 8.5 12/28/2019 PHOS [...] There was noted to be renal corti prashatn thinning likely to represent medical renal disease. [...] been following up with ENEDINA mena in [place]. That seems to be improving with nonoliguric state and small reduction in creatinine. At this time there is no clinical uremia, refractory volume overload, refractory acidosis, refractory hyperkalemia and no urgent indication of starting CURRICULUM ASSISTANT. Neither is there an indication for diagnostic [...] Incentive spirometry. Transfuse Prn. No indication for CURRICULUM ASSISTANT for now. Await renal recovery. I discussed [...] was completed later after rounds. Dictation software, Appifier, was used which may contain error for [...] but not limited to potential need for CURRICULUM ASSISTANT . acetaminophen 1,000 mg Oral 3 times [...] dinner dextrose 10% pantoprazole 8 mg/hr (12/28/19 2651) orter, DALILA Grant - 12/28/2019 10:49 AM PDT [facility] Service: Orthopedic Surgery Progress Note Hospital [...] DALILA Peralta has created this entry using [employer] e and [employer] macros. The entry has been reviewed [...] who was admitted as a transfer from [facility] due t o a mechanical fall [...] placement and he was accepted by [facility]ing [facility] in [place], [place] for rehabilitation purposes. Hospita l stay [...] making slow progress, he is accepted by [facility] in [place], [place] with discharge plans possib ly early next weeks if remains stable. Will continue PT/OT, wound care and monitor progress . Acute Kidney Injury on Chronic Kidney Disease Stage 3: Likely due to ATN precipitated by d ehydration and blood loss, creatinine is down to 3.7 and continues to improve. Nephrology se katherin on board and Dr. Beckford following, appreciate [...] 1 to 2 to a SNF in [place], [place] when renal functions are st able and cleared by Nephrology services. Also called his daughter Ms. Huerta and updated her a bout plans at phone number [phone]. 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 Pt jsut recieving 2 units of [...] been following up with ENEDINA mena in [place]. That seems to be improving with nonoliguric state and small reduction in creatinine. At this time there is no clinical uremia, refractory volume overload, refractory acidosis, refractory hyperkalemia and no urgent indication of starting CURRICULUM ASSISTANT. Neither is there an indication for diagnostic [...] Incentive spirometry. Transfuse Prn. No indication for CURRICULUM ASSISTANT for now. Await renal recovery. I discussed [...] was completed later after rounds. Dictation software, Appifier, was used which may contain error for [...] but not limited to potential need for CURRICULUM ASSISTANT . acetaminophen 1,000 mg Oral 3 times [...] status. Disposition: Plan to discharge Monday, to [facility], once medically stable a nd cleared [...] Net -400 ml . Treatment plan: per red cross worker; slowly improving. *Blood pressure: labile; See VS [...] disorder: elevated PTH and phosphorus. Treatment per red cross worker (see thei r note). Subjective No chest [...] who was admitted as a transfer from [facility] due t o a mechanical fall [...] Medications Current Facilty-Administered PRN Medications Ordered in [facility] Medication Dose Route Frequency Provider Last [...] 1 mg Intravenous Q8H PRN Jerry Nathen T Matti, MD 0.5 mg at 12/26/19 1659 meclizine [...] trength and mobility. He is accepted by [facility] in [place], [place] and discharge is delayed due to [...] to 3 days to a SNF in [place], [place] when renal functions a re stable and cleared by Nephrology services. Jerry Chino MD 12/27/2019 Linda Montalvo RN - 12/26/2019 5:09 PM PDT [facility] Service: Wound Care Consult Note Hospital [...] this note might be different from the greer lClaudy ORTHOPEDIC SURGERY PROGRESS NOTE Patient Name: Andres [...] Service: Hospitalist Daily Progress Note Andres Jones Rosalieprem 89 y.o. : 1930 SEX: male PCP: Barbara Gilman MD Hospital Day: LOS: 5 SUBJECTIVE Patient Summary: Patient is an 89-year-old male with past medical history of HTN, DM Type 2, CKD Stage III w ith baseline creatinine 1.7 who was admitted as a transfer from [facility] due t o a mechanical fall [...] placement is recommended. 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 Huerta and the at phone number [phone] Code Status: Full Code Regino Greene MD 12/25/2019 9:02 PM arycarmen Judge ARNP - 12/25/2019 1:01 PM PDT . [...] status. Disposition: Plan to discharge Monday, to [facility], once medically stable a nd cleared [...] lab follow-up and treatment per hospitalist and red cross worker. *Blood pressure: hypotensive; See VS for BP trending. Treatment plan: treatment per hospit alist and red cross worker *Hospital acquired pneumonia - on IV Zosyn, [...] iron, humalog Anthropometrics Pt reports stable wt guest advisor. Current Weight: 63.5 kg (140 lb) Admit [...] Dr. Huerta and the at phone number [phone] Code Status: Full Code Regino Greene MD [...] with serous drainage, blisters under tape. New aquacelbert drsg ap plied by me. Moderate edema [...] changed. After a curbside discussion with nephrolo anthony, decided on holding off the IV hydration [...] any conversation with family members today. Inpatient rehabilitation construction specialist. Code Status: Full Code Regino Greene MD 12/23/2019 10:03 PM [place] [facility] - 12/23/2019 12:27 PM PDT . ORTHOPEDIC [...] Day insulin lispro 0-12 Units Subcutaneous TID pravastatin 40 mg Oral Nightly terazosin 10 [...] Miya Wilson RN at 12/22/2019 5:35 PM PDTBernalKetan V, PT - 12/22/2019 1:14 PM PDTFormatting of [...] 2019 | Visit | | [address] [facility] [place] | | | | | | [address] | | | | | | [address] | | | | | | | | +--------+ + + + + | 02/05/ | Office | Cardiology | Dina Sanchez DO | | | 2019 | Visit | | [address] | | | | | | [place] | | | | | | [address] | | | | | | | | +--------+ + + + + | 02/09/ | Procedure | Cardiology | | | | 2019 | visit | | | | +--------+ + + + + | 02/17/ | Office | Orthopedic Surgery | Melquiades Baez | | | 2019 | Visit | | [address] | | | | | | [facility], | | | | | | [place] [address] | | | | | | [phone] | | | | | | | | +--------+ + + + + | 03/09/ | Office | Nephrology | Isiah Jade MD | | | 2019 | Visit | | [address] [facility] | | | | | | [address] [facility] | | | | | | [address] | | | | | | | [...] + +--------+ + + + | *TERMED* [place] UPPER GI | Routin | 12/29/2019 | [...] +--------+ + + + | FL C ARM | Routin | 12/22/2019 | | [...] | + +--------+ + + + | GATO JHONNYHAVEN JARAMILLO8, | Routin | 12/22/2019 | | Results [...] | | | Dr | | | [place] | +---+--------+ + +--------+ +---+ + | POC MORRIS CG8, | Routin | 12/22/2019 | | [...] Testing | 65 - 99 mg/dL | [facility] | | | POC | performed at [facility];[address] | | LABORATORY | | | | [address];[place] | | | | | | [address] | | | | + + + + + + + + | Specimen | + + | | + + + + + + + | Performing | Address | City/State/Zipcode | Phone Number | | Organization | | | | + + + + + | [facility] | [address] | [place] [address] | [phone] | + + + + + POC Glucose (01/01/2020 6:29 AM PDT) + + + + + + | Component | Value | Ref Range | Performed | Pathologist | | | | | At | Signature | + + + + + + | Glucose, | 143 (H)Comment: Testing | 65 - 99 mg/dL | [facility] | | | POC | performed at [facility];[address] | | LABORATORY | | | | [address];[place] | | | | | | [address] | | | | + + + + + + + + | Specimen | + + | | + + + + + + + | Performing | Address | City/State/Zipcode | Phone Number | | Organization | | | | + + + + + | [facility] | [address] | [place] [address] | [phone] | + + + + + Basic [...] | | | | | performed at [facility];[address] | | | | | [address];[place] | | | | | | [address] | | | | + + + + + + + + | Specimen | + + | Blood | + + + + + + + | Performing | Address | City/State/Zipcode | Phone Number | | Organization | | | | + + + + + | [facility] | [address] [facility] | [place] [address] | [phone] | + + + + + CBC [...] | | | Absolute | performed at [facility];[address] | K/uL | LABORATORY | | | | [address];[place], [place] | | | | | | [address] | | | | + + + + + + + + | Specimen | + + | Blood | + + + + + + + | Performing | Address | City/State/Zipcode | Phone Number | | Organization | | | | + + + + + | [facility] | [address] | [place] [address] | [phone] | + + + + + POC [...] | | | POC | performed at [facility];[address] | | LABORATORY | | | | [address];[place] | | | | | | [address] | | | | + + + + + + + + | Specimen | + + | | + + + + + + + | Performing | Address | City/State/Zipcode | Phone Number | | Organization | | | | + + + + + | [facility] | [address] [facility] | [place] [address] | [phone] | + + + + + POC [...] | | | POC | performed at [facility];[address] | | LABORATORY | | | | [address];[place], [place] | | | | | | [address] | | | | + + + + + + + + | Specimen | + + | | + + + + + + + | Performing | Address | City/State/Zipcode | Phone Number | | Organization | | | | + + + + + | [facility] | [address] | [place] [address] | [phone] | + + + + + POC [...] | | | POC | performed at [facility];[address] | | LABORATORY | | | | [address];[place] | | | | | | [address] | | | | + + + + + + + + | Specimen | + + | | + + + + + + + | Performing | Address | City/State/Zipcode | Phone Number | | Organization | | | | + + + + + | [facility] | [address] | [place] [address] | [phone] | + + + + + POC Glucose (12/31/2019 6:36 AM PDT) + + + + + + | Component | Value | Ref Range | Performed | Pathologist | | | | | At | Signature | + + + + + + | Glucose, | 154 (H)Comment: Testing | 65 - 99 mg/dL | [facility] | | | POC | performed at [facility];[address] | | LABORATORY | | | | [address];[place] | | | | | | [address] | | | | + + + + + + + + | Specimen | + + | | + + + + + + + | Performing | Address | City/State/Zipcode | Phone Number | | Organization | | | | + + + + + | [facility] | [address] | [place] [address] | [phone] | + + + + + Basic [...] | | | | | performed at [facility], [address] | | | | | | [facility], | | | | | | [place] [address] | | | | + + + + + + + + | Specimen | + + | Blood | + + + + + + + | Performing | Address | City/State/Zipcode | Phone Number | | Organization | | | | + + + + + | [facility] | [address] | [place] [address] | [phone] | + + + + + CBC [...] | | | | | [place] [address] | | | | + + + + + + + + | Specimen | + + | Blood | + + + + + + + | Performing | Address | City/State/Zipcode | Phone Number | | Organization | | | | + + + + + | [facility] | [address] | [place] [address] | [phone] | + + + + + POC [...] | | | POC | performed at [facility];[address] | | LABORATORY | | | | [address];[place] | | | | | | [address] | | | | + + + + + + + + | Specimen | + + | | + + + + + + + | Performing | Address | City/State/Zipcode | Phone Number | | Organization | | | | + + + + + | [facility] | [address] [facility] | [place] [address] | [phone] | + + + + + POC [...] | | | POC | performed at [facility];[address] | | LABORATORY | | | | [address];[place] | | | | | | [address] | | | | + + + + + + + + | Specimen | + + | | + + + + + + + | Performing | Address | City/State/Zipcode | Phone Number | | Organization | | | | + + + + + | [facility] | [address] | [place] [address] | [phone] | + + + + + POC Glucose (12/30/2019 11:02 AM PDT) + + + + + + | Component | Value | Ref Range | Performed | Pathologist | | | | | At | Signature | + + + + + + | Glucose, | 128 (H)Comment: Testing | 65 - 99 mg/dL | [facility] | | | POC | performed at [facility];[address] | | LABORATORY | | | | [address];[place] | | | | | | [address] | | | | + + + + + + + + | Specimen | + + | | + + + + + + + | Performing | Address | City/State/Zipcode | Phone Number | | Organization | | | | + + + + + | [facility] | [address] | [place] [address] | [phone] | + + + + + Basic [...] | 8.6 | 8.5 - 10.5 | [facility] | | | | | mg/dL | LABORATORY | | + + + + + + | Estimated | 20 (L)Comment: GFR <60: | >60 | [facility] | | | GFR | CHRONIC KIDNEY [...] | | | | | | MDRD [facility] traceable | | | | | | equation.Testing | | | | | | performed at [facility];[address] | | | | | | [facility];[place], [place] | | | | | | [address] | | | | + + + + + + + + | Specimen | + + | Blood | + + + + + + + | Performing | Address | City/State/Zipcode | Phone Number | | Organization | | | | + + + + + | [facility] | [address] | [place] [address] | [phone] | + + + + + POC [...] | | | POC | performed at [facility];[address] | | LABORATORY | | | | [address];[place] | | | | | | [address] | | | | + + + + + + + + | Specimen | + + | | + + + + + + + | Performing | Address | City/State/Zipcode | Phone Number | | Organization | | | | + + + + + | [facility] | [address] | [place] [address] | [phone] | + + + + + CBC [...] | | | Absolute | performed at [facility];[address] | K/uL | LABORATORY | | | | [address];[place], [place] | | | | | | [address] | | | | + + + + + + + + | Specimen | + + | Blood | + + + + + + + | Performing | Address | City/State/Zipcode | Phone Number | | Organization | | | | + + + + + | [facility] | [address] | [place] [address] | [phone] | + + + + + POC [...] | | | POC | performed at [facility];[address] | | LABORATORY | | | | [address];[place], [place] | | | | | | [address] | | | | + + + + + + + + | Specimen | + + | | + + + + + + + | Performing | Address | City/State/Zipcode | Phone Number | | Organization | | | | + + + + + | [facility] | [address] [facility] | [place] [address] | [phone] | + + + + + Hemoglobin [...] [facility] | | | | performed at [facility];8 | | LABORATORY | | | | [facility];[place], [place] | | | | | | [address] | | | | + + + + + + + + | Specimen | + + | Blood | + + + + + + + | Performing | Address | City/State/Zipcode | Phone Number | | Organization | | | | + + + + + | [facility] | [address] | [place] [address] | [phone] | + + + + + POC [...] | | | POC | performed at [facility];[address] | | LABORATORY | | | | [address];[place], [place] | | | | | | [address] | | | | + + + + + + + + | Specimen | + + | | + + + + + + + | Performing | Address | City/State/Zipcode | Phone Number | | Organization | | | | + + + + + | [facility] | [address] | [place] [address] | [phone] | + + + + + Hemoglobin [...] [facility] | | | | performed at [facility];[address] | | LABORATORY | | | | [address];[place], [place] | | | | | | [address] | | | | + + + + + + + + | Specimen | + + | Blood | + + + + + + + | Performing | Address | City/State/Zipcode | Phone Number | | Organization | | | | + + + + + | [facility] | [address] | [place] [address] | [phone] | + + + + + POC Glucose (12/29/2019 11:43 AM PDT) + + + + + + | Component | Value | Ref Range | Performed | Pathologist | | | | | At | Signature | + + + + + + | Glucose, | 191 (H)Comment: Testing | 65 - 99 mg/dL | [facility] | | | POC | performed at [facility];[address] | | LABORATORY | | | | [address];[place], [place] | | | | | | [address] | | | | + + + + + + + + | Specimen | + + | | + + + + + + + | Performing | Address | City/State/Zipcode | Phone Number | | Organization | | | | + + + + + | [facility] | [address] | [place] [address] | [phone] | + + + + + POC Glucose (12/29/2019 11:06 AM PDT) + + + + + + | Component | Value | Ref Range | Performed | Pathologist | | | | | At | Signature | + + + + + + | Glucose, | 205 (H)Comment: Testing | 65 - 99 mg/dL | [facility] | | | POC | performed at [facility];[address] | | LABORATORY | | | | [address];[place] | | | | | | [address] | | | | + + + + + + + + | Specimen | + + | | + + + + + + + | Performing | Address | City/State/Zipcode | Phone Number | | Organization | | | | + + + + + | [facility] | [address] | [place] [address] | [phone] | + + + + + Surgical [...] in two | | | containers, labeled "RosaliepremAndres." A. The specimen, | | | labeled [...] | | technical component was performed by [facility], [address] [facility] | | | [place] [address] (Deburrer Machine: Padmini Sellers MD; CLIA# | | | [id number]). Professional interpretation was performed [employer] | | | [address], | | | [place] [address] (Deburrer Machine: Oscar Maynard M.D.; CLIA#: | | | [id number]). Diagnostician: Padimni Sellers | | | MDPathologistElectronically Signed 12/31/2019 [...] | |The technical component was performed by [facility], [address] [place] [address] (Deburrer Machine: Padmini Sellers MD; CLIA# [id number]). Professional interpretation was performed by | | |[facility] [employer] [address] (Deburrer Machine: Oscar Maynard M.D.; CLIA#: [id number]). | | | | | |Diagnostician: Padmini [...] Performed At | + + + | [facility] | [facility] | | [facility] | PROVATION | | CenterGastroenterology | | | Patient Name: Andres Guzmán | | | Procedure Date: 12/29/2019 8:36 AMMRN: [id number] | | | of : 1930 | | | Note Status: FinalizedAttending MD: LAMONT HERNANDEZ , | | | MD | | | | | | Procedure Type: Upper GI | | | endoscopyIndications: Gely CASTANEDA: | | | Kb Allen MdMedicines: Monitored [...] the anesthesiologist and the | | | dictaphone technician in the pre-procedure area in the [...] | | | with Gold probe 7 Brazilian x 5 pulses was successful with | [...] | | | AMNumber of Addenda: 0 [facility] | | | - Check hemoglobin q 6 hours for one day. | | | | | | | | |LAMONT HERNANDEZ MD | | |12/29/2019 10:19:54 AM | | |This report has been signed electronically. | | | | | |Note Initiated On: 12/29/2019 8:36 AM | | |Number of Addenda: 0 | | | | | | [facility] | | + + + + [...] ALEX | | | | performed at [facility];[address] | | LABORATORY | | | | [address];[place] | | | | | | [address] | | | | + + + + + + + + | Specimen | + + | Blood | + + + + + + + | Performing | Address | City/State/Zipcode | Phone Number | | Organization | | | | + + + + + | [facility] | [address] | [place] [address] | [phone] | + + + + + POC [...] | | | POC | performed at [facility];[address] | | LABORATORY | | | | [address];[place], [place] | | | | | | [address] | | | | + + + + + + + + | Specimen | + + | | + + + + + + + | Performing | Address | City/State/Zipcode | Phone Number | | Organization | | | | + + + + + | [facility] | [address] | [place] [address] | [phone] | + + + + + CBC [...] | | | Absolute | performed at [facility];[address] | K/uL | LABORATORY | | | | [address];[place] | | | | | | [address] | | | | + + + + + + + + | Specimen | + + | Blood | + + + + + + + | Performing | Address | City/State/Zipcode | Phone Number | | Organization | | | | + + + + + | [facility] | [address] | [place] [address] | [phone] | + + + + + Protime [...] | | | | | performed at [facility] | | | | | | [address];[place], [place] | | | | | | [address] | | | | + + + + + + + + | Specimen | + + | Blood | + + + + + + + | Performing | Address | City/State/Zipcode | Phone Number | | Organization | | | | + + + + + | [facility] | [address] | [place] [address] | [phone] | + + + + + Basic [...] | 8.7 | 8.5 - 10.5 | [facility] | | | | | mg/dL | LABORATORY | | + + + + + + | Estimated | 20 (L)Comment: GFR <60: | >60 | [facility] | | | GFR | CHRONIC KIDNEY [...] | | | | | | MDRD IDKY traceable | | | | | | equation.Testing | | | | | | performed at [facility] | | | | | | [address] [facility];[place], [place] | | | | | | [address] | | | | + + + + + + + + | Specimen | + + | Blood | + + + + + + + | Performing | Address | City/State/Zipcode | Phone Number | | Organization | | | | + + + + + | [facility] | [address] | [place] [address] | [phone] | + + + + + POC Glucose (12/28/2019 11:27 PM PDT) + + + + + + | Component | Value | Ref Range | Performed | Pathologist | | | | | At | Signature | + + + + + + | Glucose, | 192 (H)Comment: Testing | 65 - 99 mg/dL | [facility] | | | POC | performed at [facility];[address] | | LABORATORY | | | | [address];[place], [place] | | | | | | [address] | | | | + + + + + + + + | Specimen | + + | | + + + + + + + | Performing | Address | City/State/Zipcode | Phone Number | | Organization | | | | + + + + + | [facility] | [address] | [place] [address] | [phone] | + + + + + Hemoglobin [...] [facility] | | | | performed at [facility];[address] | | LABORATORY | | | | [address];[place], [place] | | | | | | [address] | | | | + + + + + + + + | Specimen | + + | Blood | + + + + + + + | Performing | Address | City/State/Zipcode | Phone Number | | Organization | | | | + + + + + | [facility] | [address] | [place] [address] | [phone] | + + + + + POC Glucose (12/28/2019 8:47 PM PDT) + + + + + + | Component | Value | Ref Range | Performed | Pathologist | | | | | At | Signature | + + + + + + | Glucose, | 216 (H)Comment: Testing | 65 - 99 mg/dL | [facility] | | | POC | performed at [facility];[address] | | LABORATORY | | | | [address];[place] | | | | | | [address] | | | | + + + + + + + + | Specimen | + + | | + + + + + + + | Performing | Address | City/State/Zipcode | Phone Number | | Organization | | | | + + + + + | [facility] | [address] | [place] [address] | [phone] | + + + + + Fecal [...] | | LABORATORY | | | | [facility];[address];[place] [address] | | | | + + + + + + + + | Specimen | + + | Stool - Stool | | specimen (specimen) | + + + + + + + | Performing | Address | City/State/Zipcode | Phone Number | | Organization | | | | + + + + + | [facility] | [address] | [place] [address] | [phone] | + + + + + POC [...] | | | POC | performed at [facility];[address] | | LABORATORY | | | | [address];[place], [place] | | | | | | [address] | | | | + + + + + + + + | Specimen | + + | | + + + + + + + | Performing | Address | City/State/Zipcode | Phone Number | | Organization | | | | + + + + + | [facility] | [address] | [place] [address] | [phone] | + + + + + Hemoglobin [...] Testing | 39.0 - 50.0 % | [facility] | | | | performed at [facility];[address] | | LABORATORY | | | | [address];[place], [place] | | | | | | [address] | | | | + + + + + + + + | Specimen | + + | Blood | + + + + + + + | Performing | Address | City/State/Zipcode | Phone Number | | Organization | | | | + + + + + | [facility] | [address] | [place] [address] | [phone] | + + + + + POC [...] | | | POC | performed at [facility];[address] | | LABORATORY | | | | [address];[place], [place] | | | | | | [address] | | | | + + + + + + + + | Specimen | + + | | + + + + + + + | Performing | Address | City/State/Zipcode | Phone Number | | Organization | | | | + + + + + | [facility] | [address] | [place] [address] | [phone] | + + + + + POC [...] | | | POC | performed at [facility];[address] | | LABORATORY | | | | [address];[place], [place] | | | | | | [address] | | | | + + + + + + + + | Specimen | + + | | + + + + + + + | Performing | Address | City/State/Zipcode | Phone Number | | Organization | | | | + + + + + | [facility] | [address] | [place] [address] | [phone] | + + + + + CBC [...] | | | Absolute | performed at [facility], [address] | K/uL | LABORATORY | | | | [address], | | | | | | [place] [address] | | | | + + + + + + + + | Specimen | + + | Blood | + + + + + + + | Performing | Address | City/State/Zipcode | Phone Number | | Organization | | | | + + + + + | [facility] | [address] | [place] [address] | [phone] | + + + + + Basic [...] | | | | | performed at [facility], [address] | | | | | | [facility], | | | | | | [place] [address] | | | | + + + + + + + + | Specimen | + + | Blood | + + + + + + + | Performing | Address | City/State/Zipcode | Phone Number | | Organization | | | | + + + + + | [facility] | [address] | [place] [address] | [phone] | + + + + + POC Glucose (12/27/2019 8:44 PM PDT) + + + + + + | Component | Value | Ref Range | Performed | Pathologist | | | | | At | Signature | + + + + + + | Glucose, | 191 (H)Comment: Testing | 65 - 99 mg/dL | [facility] | | | POC | performed at [facility];[address] | | LABORATORY | | | | [address];[place] | | | | | | [address] | | | | + + + + + + + + | Specimen | + + | | + + + + + + + | Performing | Address | City/State/Zipcode | Phone Number | | Organization | | | | + + + + + | [facility] | [address] | [place] [address] | [phone] | + + + + + POC Glucose (12/27/2019 3:30 PM PDT) + + + + + + | Component | Value | Ref Range | Performed | Pathologist | | | | | At | Signature | + + + + + + | Glucose, | 156 (H)Comment: Testing | 65 - 99 mg/dL | [facility] | | | POC | performed at [facility];[address] | | LABORATORY | | | | [address];[place] | | | | | | [address] | | | | + + + + + + + + | Specimen | + + | | + + + + + + + | Performing | Address | City/State/Zipcode | Phone Number | | Organization | | | | + + + + + | [facility] | [address] | [place] [address] | [phone] | + + + + + Red [...] | ORDER RECEIVED IN BLOOD | | [facility] | | | COMMENT | BANK. | | LABORATORY | | + + + + + + | BLOOD BANK | Testing performed at | | [facility] | | | COMMENT | [facility];[address] | LABORATORY | | | [address];[place] [address] | | | | + + + + + + + + | Specimen | + + | | + + + + + + + | Performing | Address | City/State/Zipcode | Phone Number | | Organization | | | | + + + + + | [facility] | [address] | [place] [address] | [phone] | + + + + + Type [...] + + + | BB BAND | [id number] | | [facility] | | | | | | LABORATORY | | + + + + + + | UNIT # | [id number] | | [facility] | | | | [...] + + + | UNIT # | [id number] | | [facility] | | | | [...] | | | RESULT | performed at [facility];[address] | | LABORATORY | | | | [address];[place] | | | | | | [address] | | | | + + + + + + + + | Specimen | + + | Blood | + + + + + + + | Performing | Address | City/State/Zipcode | Phone Number | | Organization | | | | + + + + + | [facility] | [address] | [place] [address] | [phone] | + + + + + POC Glucose (12/27/2019 7:25 AM PDT) + + + + + + | Component | Value | Ref Range | Performed | Pathologist | | | | | At | Signature | + + + + + + | Glucose, | 186 (H)Comment: Testing | 65 - 99 mg/dL | [facility] | | | POC | performed at [facility];[address] | | LABORATORY | | | | [address];[place] | | | | | | [address] | | | | + + + + + + + + | Specimen | + + | | + + + + + + + | Performing | Address | City/State/Zipcode | Phone Number | | Organization | | | | + + + + + | [facility] | [address] | [place] [address] | [phone] | + + + + + CBC [...] | | | Absolute | performed at [facility], [address] | K/uL | LABORATORY | | | | [address], | | | | | | [place] [address] | | | | + + + + + + + + | Specimen | + + | | + + + + + + + | Performing | Address | City/State/Zipcode | Phone Number | | Organization | | | | + + + + + | [facility] | [address] | [place] [address] | [phone] | + + + + + Procalcitonin (12/27/2019 5:04 AM PDT) + + + + + + | Component | Value | Ref Range | Performed | Pathologist | | | | | At | Signature | + + + + + + | PROCALCITON | 0.41Comment: | <0.5 ng/mL | [facility] | | | IN | INTERPRETIVE | [...] | | | | | | at [facility];[address] [place] [address] | | | | | | [facility];[place] [address] | | | | + + + + + + + + | Specimen | + + | Blood | + + + + + + + | Performing | Address | City/State/Zipcode | Phone Number | | Organization | | | | + + + + + | [facility] | [address] | [place] [address] | [phone] | + + + + + Basic [...] 8.1 (L) | 8.5 - 10.5 | [facility] | | | | | mg/dL | LABORATORY | | + + + + + + | Estimated | 13 (L)Comment: GFR <60: | >60 | [facility] [...] | | | | | | MDRD IDKY traceable | | | | | | equation.Testing | | | | | | performed at [facility], [address] | | | | | | [facility], | | | | | | [place] [address] | | | | + + + + + + + + | Specimen | + + | Blood | + + + + + + + | Performing | Address | City/State/Zipcode | Phone Number | | Organization | | | | + + + + + | [facility] | [address] | [place] [address] | [phone] | + + + + + Vitamin D, Deficiency Screen (25-Hydroxy) (12/27/2019 5:04 AM PDT) + + + + + + | Component | Value | Ref Range | Performed | Pathologist | | | | | At | Signature | + + + + + + | Vit D, | 25.2 (L)Comment: Vitamin | 30.0 - 100.0 | [facility] | | | 25-Hydroxy | D deficiency has been | ng/mL | LABORATORY | | | | defined by the [place] | | | | | | ofMedicine [...] IOM | | | | | | ([place] of Medicine). | | | | | [...] | | | | | performed at [facility], | | | | | | [address], | | | | | | [facility] [address] | | | | + + + + + + + + | Specimen | + + | Blood | + + + + + + + | Performing | Address | City/State/Zipcode | Phone Number | | Organization | | | | + + + + + | [facility] | [address] | [place] [address] | [phone] | + + + + + Potassium (12/27/2019 12:08 AM PDT) + + + + + + | Component | Value | Ref Range | Performed | Pathologist | | | | | At | Signature | + + + + + + | K | 4.0Comment: Testing | 3.5 - 4.9 | [facility] | | | | performed at [facility];[address] | mmol/L | LABORATORY | | | | [address];[place], [place] | | | | | | [address] | | | | + + + + + + + + | Specimen | + + | Blood | + + + + + + + | Performing | Address | City/State/Zipcode | Phone Number | | Organization | | | | + + + + + | [facility] | [address] [facility] | [place] [address] | [phone] | + + + + + Magnesium (12/27/2019 12:08 AM PDT) + + + + + + | Component | Value | Ref Range | Performed | Pathologist | | | | | At | Signature | + + + + + + | Magnesium | 2.2Comment: Testing | 1.7 - 2.4 mg/dL | [facility] | | | | performed at [facility];[address] | | LABORATORY | | | | [address];[place], [place] | | | | | | [address] | | | | + + + + + + + + | Specimen | + + | Blood | + + + + + + + | Performing | Address | City/State/Zipcode | Phone Number | | Organization | | | | + + + + + | [facility] | [address] | [place] [address] | [phone] | + + + + + ECG [...] | | | POC | performed at [facility];[address] | | LABORATORY | | | | [address];[place] | | | | | | [address] | | | | + + + + + + + + | Specimen | + + | | + + + + + + + | Performing | Address | City/State/Zipcode | Phone Number | | Organization | | | | + + + + + | [facility] | [address] [facility] | [place] [address] | [phone] | + + + + + POC [...] | | | POC | performed at [facility];[address] | | LABORATORY | | | | [address];[place] | | | | | | [address] | | | | + + + + + + + + | Specimen | + + | | + + + + + + + | Performing | Address | City/State/Zipcode | Phone Number | | Organization | | | | + + + + + | [facility] | [address] | [place] [address] | [phone] | + + + + + Complement C4 Ag (12/26/2019 12:33 PM PDT) + + + + + + | Component | Value | Ref Range | Performed | Pathologist | | | | | At | Signature | + + + + + + | C4 | 15Comment: Testing | 14 - 44 mg/dL | [facility] | | | COMPLEMENT | performed at [facility], | | LABORATORY | | | | [address], | | | | | | [facility] [address] | | | | + + + + + + + + | Specimen | + + | | + + + + + + + | Performing | Address | City/State/Zipcode | Phone Number | | Organization | | | | + + + + + | [facility] | [address] | [place] [address] | [phone] | + + + + + Complement C3 Ag (12/26/2019 12:33 PM PDT) + + + + + + | Component | Value | Ref Range | Performed | Pathologist | | | | | At | Signature | + + + + + + | C3 | 53 (L)Comment: Testing | 82 - 167 mg/dL | [facility] | | | COMPLEMENT | performed at [facility], | | LABORATORY | | | | [address], | | | | | | [facility] [address] | | | | + + + + + + + + | Specimen | + + | | + + + + + + + | Performing | Address | City/State/Zipcode | Phone Number | | Organization | | | | + + + + + | [facility] | [address] | [place] [address] | [phone] | + + + + + POC [...] | | | POC | performed at [facility];[address] | | LABORATORY | | | | [address];[place], [place] | | | | | | [address] | | | | + + + + + + + + | Specimen | + + | | + + + + + + + | Performing | Address | City/State/Zipcode | Phone Number | | Organization | | | | + + + + + | [facility] | [address] | [place] [address] | [phone] | + + + + + POC [...] | | | POC | performed at [facility] [place];[address] | | LABORATORY | | | | [address];[place] | | | | | | [address] | | | | + + + + + + + + | Specimen | + + | | + + + + + + + | Performing | Address | City/State/Zipcode | Phone Number | | Organization | | | | + + + + + | [facility] | [address] | [place] [address] | [phone] | + + + + + Parathyroid Hormone, Intraoperative (12/26/2019 4:25 AM PDT) + + + + + + | Component | Value | Ref Range | Performed | Pathologist | | | | | At | Signature | + + + + + + | PTH Intact | 167.0 (H)Comment: | 8.7 - 79.6 | ALEX | | | | Testing performed at | pg/mL | LABORATORY | | | | [facility];[address] | [address];[place] [address] | | | | + + + + + + + + | Specimen | + + | | + + + + + + + | Performing | Address | City/State/Zipcode | Phone Number | | Organization | | | | + + + + + | [facility] | [address] | [place] [address] | [phone] | + + + + + Renal [...] 13 (L)Comment: GFR <60: | >60 | [facility] | | | GFR | CHRONIC KIDNEY [...] | | | | | | MDRD IDKY traceable | | | | | | equation.Testing | | | | | | performed at [facility], [address] | | | | | | [facility], | | | | | | [place] [address] | | | | + + + + + + + + | Specimen | + + | Blood | + + + + + + + | Performing | Address | City/State/Zipcode | Phone Number | | Organization | | | | + + + + + | [facility] | [address] | [place] [address] | [phone] | + + + + + POC [...] | | | POC | performed at [facility];888 | | LABORATORY | | | | Rosalia Mccain;[place] | | | | | | [address] | | | | + + + + + + + + | Specimen | + + | | + + + + + + + | Performing | Address | City/State/Zipcode | Phone Number | | Organization | | | | + + + + + | [facility] | [address] | [place] [address] | [phone] | + + + + + POC [...] | | | POC | performed at [facility];[address] | | LABORATORY | | | | Rosalia Mccain;[place] | | | | | | [address] | | | | + + + + + + + + | Specimen | + + | | + + + + + + + | Performing | Address | City/State/Zipcode | Phone Number | | Organization | | | | + + + + + | [facility] | [address] [facility] | [place] [address] | [phone] | + + + + + ECHO [...] | | | POC | performed at [facility];888 | | LABORATORY | | | | Rosalia Mccain;[place] | | | | | | [address] | | | | + + + + + + + + | Specimen | + + | | + + + + + + + | Performing | Address | City/State/Zipcode | Phone Number | | Organization | | | | + + + + + | [facility] | [address] | [place] [address] | [phone] | + + + + + POC Glucose (12/25/2019 7:56 AM PDT) + + + + + + | Component | Value | Ref Range | Performed | Pathologist | | | | | At | Signature | + + + + + + | Glucose, | 136 (H)Comment: Testing | 65 - 99 mg/dL | [facility] | | | POC | performed at [facility];888 | | LABORATORY | | | | Rosalia Mccain;[place] | | | | | | [address] | | | | + + + + + + + + | Specimen | + + | | + + + + + + + | Performing | Address | City/State/Zipcode | Phone Number | | Organization | | | | + + + + + | [facility] | [address] | [place] [address] | [phone] | + + + + + CK Total (12/25/2019 4:25 AM PDT) + + + + + + | Component | Value | Ref Range | Performed | Pathologist | | | | | At | Signature | + + + + + + | CK TOTAL | 104Comment: Testing | 55 - 400 U/L | [facility] | | | | performed at [facility];888 | | LABORATORY | | | | Rosalia Mccain;[place] | | | | | | [address] | | | | + + + + + + + + | Specimen | + + | Blood | + + + + + + + | Performing | Address | City/State/Zipcode | Phone Number | | Organization | | | | + + + + + | [facility] | [address] | [place] [address] | [phone] | + + + + + Renal [...] 13 (L)Comment: GFR <60: | >60 | [facility] [...] | | | | | performed at [facility], [address] | | | | | | [facility], | | | | | | [place] [address] | | | | + + + + + + + + | Specimen | + + | Blood | + + + + + + + | Performing | Address | City/State/Zipcode | Phone Number | | Organization | | | | + + + + + | [facility] | [address] | [place] [address] | [phone] | + + + + + Cytoplasmic [...] | | | | | with both [place]-3 and | | | | | | [...] | <1:20Comment: The | Neg:<1:20 titer | [facility] | | | pANCA | atypical pANCA [...] | | | | | performed by [facility], | | | | | | [address] [facility], | | | | | | [facility] [address] | | | | + + + + + + + + | Specimen | + + | Blood | + + + + + + + | Performing | Address | City/State/Zipcode | Phone Number | | Organization | | | | + + + + + | [facility] | [address] | [place] [address] | [phone] | + + + + + Sedimentation Rate (12/25/2019 4:22 AM PDT) + + + + + + | Component | Value | Ref Range | Performed | Pathologist | | | | | At | Signature | + + + + + + | ESR | 6Comment: Testing | 0 - 20 mm/Hr | [facility] | | | | performed at L, [address] | | LABORATORY | | | | [address]ccain, | | | | | | [place] [address] | | | | + + + + + + + + | Specimen | + + | Blood | + + + + + + + | Performing | Address | City/State/Zipcode | Phone Number | | Organization | | | | + + + + + | [facility] | [address] | [place] [address] | [phone] | + + + + + Immunoglobulin, Free Light Chain (12/25/2019 4:22 AM PDT) + + + + + + | Component | Value | Ref Range | Performed | Pathologist | | | | | At | Signature | + + + + + + | Davey Free | 121.2 (H) | 3.3 - [...] + + + + + + | Davey/Lambd | 1.25Comment: Testing | 0.26 - 1.65 | [facility] | | | a Free | performed at [facility] | | LABORATORY | | | Light Chain | [address] | | | | | Ratio | [place] [address] | | | | + + + + + + + + | Specimen | + + | Blood | + + + + + + + | Performing | Address | City/State/Zipcode | Phone Number | | Organization | | | | + + + + + | [facility] | [address] | [place] [address] | [phone] | + + + + + Glomerular [...] by | | | | | | Yaron, Anthony [address] | | | | | | [place] | | | | | | [address] | | | | + + + + + + + + | Specimen | + + | Blood | + + + + + + + | Performing | Address | City/State/Zipcode | Phone Number | | Organization | | | | + + + + + | [facility] | [address] | [place] [address] | [phone] | + + + + + Hepatitis [...] <0.1Comment: | 0.0 - 0.9 s/co | [facility] | | | | | ratio | [...] | | | | | | 0.9The [facility] recommends | | | | | | that a positive HCV | | | | | | antibody resultbe | | | | | | followed up with a HCV | | | | | | Nucleic Acid | | | | | | Amplificationtest | | | | | | ([id number]).Testing | | | | | | performed at [facility], | | | | | | [address], [facility], | | | | | | [facility] [address] | | | | + + + + + + + + | Specimen | + + | Blood | + + + + + + + | Performing | Address | City/State/Zipcode | Phone Number | | Organization | | | | + + + + + | [facility] | [address] | [place] [address] | [phone] | + + + + + CK Total (12/25/2019 4:22 AM PDT) + + + + + + | Component | Value | Ref Range | Performed | Pathologist | | | | | At | Signature | + + + + + + | CK TOTAL | 100Comment: Testing | 55 - 400 U/L | [facility] | | | | performed at [facility];[address] | | LABORATORY | | | | [address];[place] | | | | | | [address] | | | | + + + + + + + + | Specimen | + + | Blood | + + + + + + + | Performing | Address | City/State/Zipcode | Phone Number | | Organization | | | | + + + + + | [facility] | [address] | [place] [address] | [phone] | + + + + + Lactate Dehydrogenase (12/25/2019 4:22 AM PDT) + + + + + + | Component | Value | Ref Range | Performed | Pathologist | | | | | At | Signature | + + + + + + | LDH TOTAL | 154Comment: Testing | 120 - 246 U/L | [facility] | | | | performed at [facility];[address] | | LABORATORY | | | | [address];[place], [place] | | | | | | [address] | | | | + + + + + + + + | Specimen | + + | Blood | + + + + + + + | Performing | Address | City/State/Zipcode | Phone Number | | Organization | | | | + + + + + | [facility] | [address] | [place] [address] | [phone] | + + + + + Magnesium (12/25/2019 4:22 AM PDT) + + + + + + | Component | Value | Ref Range | Performed | Pathologist | | | | | At | Signature | + + + + + + | Magnesium | 2.5 (H)Comment: Testing | 1.7 - 2.4 mg/dL | [facility] | | | | performed at [facility], [address] | | LABORATORY | | | | [address]cc[address], | | | | | | [place] [address] | | | | + + + + + + + + | Specimen | + + | Blood | + + + + + + + | Performing | Address | City/State/Zipcode | Phone Number | | Organization | | | | + + + + + | [facility] | [address] | [place] [address] | [phone] | + + + + + Protein, Urine, Random (12/25/2019 12:01 AM PDT) + + + + + + | Component | Value | Ref Range | Performed | Pathologist | | | | | At | Signature | + + + + + + | Protein, | 131Comment: NO NORMAL | mg/dL | [facility] | | | Urine | RANGE ESTABLISHEDTesting | | LABORATORY | | | | performed at [facility], [address] | | | | | [address], | | | | | | [place] [address] | | | | + + + + + + + + | Specimen | + + | | + + + + + + + | Performing | Address | City/State/Zipcode | Phone Number | | Organization | | | | + + + + + | [facility] | [address] | [place] [address] | [phone] | + + + + + Creatinine, Urine, Random (12/25/2019 12:01 AM PDT) + + + + + + | Component | Value | Ref Range | Performed | Pathologist | | | | | At | Signature | + + + + + + | Creatinine, | 139.0Comment: NO NORMAL | mg/dL | [facility] | | | random | [facility] ESTABLISHEDTesting | | LABORATORY | | | urine | performed at [facility], [address] | | | | | [address], | | | | | | [place] [address] | | | | + + + + + + + + | Specimen | + + | | + + + + + + + | Performing | Address | City/State/Zipcode | Phone Number | | Organization | | | | + + + + + | [facility] | [address] | [place] [address] | [phone] | + + + + + Protein/Creatinine Ratio, Urine (12/25/2019 12:01 AM PDT) + + + + + + | Component | Value | Ref Range | Performed | Pathologist | | | | | At | Signature | + + + + + + | PRO/CREA | 0.942Comment: Testing | | [facility] | | | RATIO,URINE | performed at [facility], [address] | | LABORATORY | | | | [address]cc[address], | | | | | | [place] [address] | | | | + + + + + + + + | Specimen | + + | Urine | + + + + + + + | Performing | Address | City/State/Zipcode | Phone Number | | Organization | | | | + + + + + | [facility] | [address] | [place] [address] | [phone] | + + + + + POC [...] | | | POC | performed at [facility];[address] | | LABORATORY | | | | [address];[place], [place] | | | | | | [address] | | | | + + + + + + + + | Specimen | + + | | + + + + + + + | Performing | Address | City/State/Zipcode | Phone Number | | Organization | | | | + + + + + | [facility] | [address] | [place] [address] | [phone] | + + + + + POC Glucose (12/24/2019 5:14 PM PDT) + + + + + + | Component | Value | Ref Range | Performed | Pathologist | | | | | At | Signature | + + + + + + | Glucose, | 136 (H)Comment: Testing | 65 - 99 mg/dL | [facility] | | | POC | performed at [facility];[address] | | LABORATORY | | | | Rosalia Mccain;[place] | | | | | | [address] | | | | + + + + + + + + | Specimen | + + | | + + + + + + + | Performing | Address | City/State/Zipcode | Phone Number | | Organization | | | | + + + + + | [facility] | [address] | [place] [address] | [phone] | + + + + + ECG [...] effusion. | | | Signed by: César Johnson Matthew Sign Date/Time: 12/24/2019 3:21 | | | [...] | | | Arterial, | performed at [facility];[address] | | LABORATORY | | | POC | [address]cc[address];[place], [place] | | | | | | [address] | | | | + + + + + + + + | Specimen | + + | | + + + + + + + | Performing | Address | City/State/Zipcode | Phone Number | | Organization | | | | + + + + + | [facility] | [address] | [place] [address] | [phone] | + + + + + Coronavirus (COVID-19) NAAKing (12/24/2019 1:10 PM PDT) + + + + + + | Component | Value | Ref Range | Performed | Pathologist | | | | | At | Signature | + + + + + + | SARS-CoV-2, | NEGATIVEComment: Testing | NEG | [facility] | | | YOU | performed at [facility];888 | | LABORATORY | | | (COVID-19) | [address]alia Mccain;[place] | | | | | | [address] | | | | + + + [...] [facility] | [address] | [place] [address] | [phone] | + + + + + Culture, [...] | | LABORATORY | | | | Blvd;[place] [address] | | | | + + + + + + | RESULT | NO GROWTH 6 DAYS | | [facility] | | | | | | LABORATORY | | + + + + + + | RESULT | Testing performed at | | [facility] | | | | TCL, [address] [facility] | | LABORATORY | | | | [place] | | | | | | [address]Kujirvs: Testing | | | | | | performed at [facility], [address] | | | | | | [facility] [place], [place] | | | | | | [address] | | | | + + + [...] [facility] | [address] | [place] [address] | [phone] | + + + + + Culture, [...] Special | Testing performed at | | [facility] | | | Requests | [facility];[address] | | LABORATORY | | | | [address];[place] [address] | | | | + + + + + + | RESULT | NO GROWTH 6 DAYS | | [facility] | | | | | | LABORATORY | | + + + + + + | RESULT | Testing performed at | | [facility] | | | | TCL, [address] [facility] | | LABORATORY | | | | [address], [place], [place] | | | | | | [address]Rfjtojb: Testing | | | | | | performed at [facility], [address] | | | | | | [address], [place], [place] | | | | | | [address] | | | | + + + + + + + + | Specimen | + + | Blood - Peripheral | | blood specimen | | (specimen) | + + + + + + + | Performing | Address | City/State/Zipcode | Phone Number | | Organization | | | | + + + + + | [facility] | [address] | [place] [address] | [phone] | + + + + + Urinalysis [...] - 1.030 | [facility] | | | [place], | | | LABORATORY | | | [...] | | | Urine | performed at [facility], [address] | | LABORATORY | | | | [address]cc[address], | | | | | | [place] [address] | | | | + + + [...] | + + + + + | [facility] | [address] | [place] [address] | [phone] | + + + + + Sodium, Urine, Random (12/24/2019 12:45 PM PDT) + + + + + + | Component | Value | Ref Range | Performed | Pathologist | | | | | At | Signature | + + + + + + | Sodium, | 52Comment: NO NORMAL | mmol/L | [facility] | | | Random | [facility] ESTABLISHEDTesting | | LABORATORY | | | urine | performed at [facility], [address] | | | | | | [address], | | | | | | [place] [address] | | | | + + + [...] | + + + + + | [facility] | [address] | [place] [address] | [phone] | + + + + + Creatinine, [...] | | | urine | performed at [facility], [address] | | | | | | [address], | | | | | | [place] [address] | | | | + + + [...] | + + + + + | [facility] | [address] | [place] [address] | [phone] | + + + + + Lactic Acid (12/24/2019 12:27 PM PDT) + + + + + + | Component | Value | Ref Range | Performed | Pathologist | | | | | At | Signature | + + + + + + | Lactate, | 1.6Comment: Testing | 0.4 - 2.0 | [facility] | | | Serum | performed at [facility];888 | mmol/L | LABORATORY | | | | [address];[place], [place] | | | | | | [address] | | | | + + + + + + + + | Specimen | + + | Blood | + + + + + + + | Performing | Address | City/State/Zipcode | Phone Number | | Organization | | | | + + + + + | [facility] | [address] | [place] [address] | [phone] | + + + + + Procalcitonin [...] | | | | | | at [facility];[address] | | | | | | [place] [address] | | | | + + + + + + + + | Specimen | + + | Blood | + + + + + + + | Performing | Address | City/State/Zipcode | Phone Number | | Organization | | | | + + + + + | [facility] | [address] | [place] [address] | [phone] | + + + + + POC [...] | | | POC | performed at [facility];[address] | | LABORATORY | | | | [address];[place], [place] | | | | | | [address] | | | | + + + + + + + + | Specimen | + + | | + + + + + + + | Performing | Address | City/State/Zipcode | Phone Number | | Organization | | | | + + + + + | [facility] | [address] | [place] [address] | [phone] | + + + + + POC [...] | | | POC | performed at [facility];[address] | | LABORATORY | | | | [address];[place] | | | | | | [address] | | | | + + + + + + + + | Specimen | + + | | + + + + + + + | Performing | Address | City/State/Zipcode | Phone Number | | Organization | | | | + + + + + | [facility] | [address] | [place] [address] | [phone] | + + + + + CBC [...] LABORATORY | | | | performed at [facility];[address] | | | | | | [address];[place] | | | | | | [address] | | | | + + + + + + + + | Specimen | + + | Blood | + + + + + + + | Performing | Address | City/State/Zipcode | Phone Number | | Organization | | | | + + + + + | [facility] | [address] | [place] [address] | [phone] | + + + + + Basic [...] | | | | | performed at [facility], [address] | | | | | | [facility], | | | | | | [place] [address] | | | | + + + + + + + + | Specimen | + + | Blood | + + + + + + + | Performing | Address | City/State/Zipcode | Phone Number | | Organization | | | | + + + + + | [facility] | [address] | [place] [address] | [phone] | + + + + + POC [...] | | | POC | performed at [facility];[address] | | LABORATORY | | | | [address] [facility];[place], [place] | | | | | | [address] | | | | + + + + + + + + | Specimen | + + | | + + + + + + + | Performing | Address | City/State/Zipcode | Phone Number | | Organization | | | | + + + + + | [facility] | [address] | [place] [address] | [phone] | + + + + + POC Glucose (12/23/2019 4:35 PM PDT) + + + + + + | Component | Value | Ref Range | Performed | Pathologist | | | | | At | Signature | + + + + + + | Glucose, | 129 (H)Comment: Testing | 65 - 99 mg/dL | [facility] | | | POC | performed at [facility];[address] | | LABORATORY | | | | [address];[place] | | | | | | [address] | | | | + + + + + + + + | Specimen | + + | | + + + + + + + | Performing | Address | City/State/Zipcode | Phone Number | | Organization | | | | + + + + + | [facility] | [address] | [place] [address] | [phone] | + + + + + POC Glucose (12/23/2019 2:05 PM PDT) + + + + + + | Component | Value | Ref Range | Performed | Pathologist | | | | | At | Signature | + + + + + + | Glucose, | 158 (H)Comment: Testing | 65 - 99 mg/dL | [facility] | | | POC | performed at [facility];[address] | | LABORATORY | | | | [address];[place] | | | | | | [address] | | | | + + + + + + + + | Specimen | + + | | + + + + + + + | Performing | Address | City/State/Zipcode | Phone Number | | Organization | | | | + + + + + | [facility] | [address] | [place] [address] | [phone] | + + + + + POC [...] | | | POC | performed at [facility];[address] | | LABORATORY | | | | [address];[place] | | | | | | [address] | | | | + + + + + + + + | Specimen | + + | | + + + + + + + | Performing | Address | City/State/Zipcode | Phone Number | | Organization | | | | + + + + + | [facility] | [address] | [place] [address] | [phone] | + + + + + Basic [...] 8.3 (L) | 8.5 - 10.5 | [facility] | [...] | | | | | | [facility] traceable | | | | | | equation.Testing | | | | | | performed at [facility];[address] | | | | | | [facility];[place], [place] | | | | | | [address] | | | | + + + + + + + + | Specimen | + + | Blood | + + + + + + + | Performing | Address | City/State/Zipcode | Phone Number | | Organization | | | | + + + + + | [facility] | [address] | [place] [address] | [phone] | + + + + + Phosphorus (12/23/2019 4:04 AM PDT) + + + + + + | Component | Value | Ref Range | Performed | Pathologist | | | | | At | Signature | + + + + + + | Phosphorus | 4.6Comment: Testing | 2.3 - 4.8 mg/dL | [facility] | | | | performed at [facility];[address] | | LABORATORY | | | | [address];[place], [place] | | | | | | [address] | | | | + + + + + + + + | Specimen | + + | Blood | + + + + + + + | Performing | Address | City/State/Zipcode | Phone Number | | Organization | | | | + + + + + | [facility] | [address] | [place] [address] | [phone] | + + + + + Magnesium (12/23/2019 4:04 AM PDT) + + + + + + | Component | Value | Ref Range | Performed | Pathologist | | | | | At | Signature | + + + + + + | Magnesium | 2.1Comment: Testing | 1.7 - 2.4 mg/dL | [facility] | | | | performed at [facility];[address] | | LABORATORY | | | | [address];[place] | | | | | | [address] | | | | + + + + + + + + | Specimen | + + | Blood | + + + + + + + | Performing | Address | City/State/Zipcode | Phone Number | | Organization | | | | + + + + + | [facility] | [address] | [place] [address] | [phone] | + + + + + CBC [...] LABORATORY | | | | performed at [facility];[address] | | | | | | [address];[place] | | | | | | [address] | | | | + + + + + + + + | Specimen | + + | Blood | + + + + + + + | Performing | Address | City/State/Zipcode | Phone Number | | Organization | | | | + + + + + | [facility] | [address] | [place] [address] | [phone] | + + + + + Hemoglobin (12/22/2019 9:37 PM PDT) + + + + + + | Component | Value | Ref Range | Performed | Pathologist | | | | | At | Signature | + + + + + + | Hemoglobin | 9.1 (L)Comment: Testing | 13.2 - 17.0 | [facility] | | | | performed at [facility] [place];888 | g/dL | LABORATORY | | | | [address]alia [address]ccain;[place] | | | | | | [id number] | | | | + + + + + + + + | Specimen | + + | Blood | + + + + + + + | Performing | Address | City/State/Zipcode | Phone Number | | Organization | | | | + + + + + | [facility] | [address] | [place] [address] | [phone] | + + + + + Hematocrit (12/22/2019 9:37 PM PDT) + + + + + + | Component | Value | Ref Range | Performed | Pathologist | | | | | At | Signature | + + + + + + | Hematocrit | 27.4 (L)Comment: Testing | 39.0 - 50.0 % | [facility] | | | | performed at [facility] [place];[address] | | LABORATORY | | | | [address];[place], [place] | | | | | | [id number] | | | | + + + + + + + + | Specimen | + + | Blood | + + + + + + + | Performing | Address | City/State/Zipcode | Phone Number | | Organization | | | | + + + + + | [facility] | [address] | [place] [address] | [phone] | + + + + + POC Glucose (12/22/2019 8:30 PM PDT) + + + + + + | Component | Value | Ref Range | Performed | Pathologist | | | | | At | Signature | + + + + + + | Glucose, | 129 (H)Comment: Testing | 65 - 99 mg/dL | [facility] | | | POC | performed at [facility];[address] | | LABORATORY | | | | [address];[place] | | | | | | [address] | | | | + + + + + + + + | Specimen | + + | | + + + + + + + | Performing | Address | City/State/Zipcode | Phone Number | | Organization | | | | + + + + + | [facility] | [address] | [place] [address] | [phone] | + + + + + POC Glucose (12/22/2019 5:32 PM PDT) + + + + + + | Component | Value | Ref Range | Performed | Pathologist | | | | | At | Signature | + + + + + + | Glucose, | 153 (H)Comment: Testing | 65 - 99 mg/dL | [facility] | | | POC | performed at [facility];[address] | | LABORATORY | | | | [address];[place], [place] | | | | | | [address] | | | | + + + + + + + + | Specimen | + + | | + + + + + + + | Performing | Address | City/State/Zipcode | Phone Number | | Organization | | | | + + + + + | [facility] | [address] | [place] [address] | [phone] | + + + + + Red [...] BANK | Testing performed at | | [facility] | | | COMMENT | [facility];[address] | | LABORATORY | | | | [address] [address] | | | | + + + + + + + + | Specimen | + + | | + + + + + + + | Performing | Address | City/State/Zipcode | Phone Number | | Organization | | | | + + + + + | [facility] | [address] | [place] [address] | [phone] | + + + + + POC [...] | | | POC | performed at [facility];[address] | | LABORATORY | | | | [address];[place], [place] | | | | | | [address] | | | | + + + + + + + + | Specimen | + + | | + + + + + + + | Performing | Address | City/State/Zipcode | Phone Number | | Organization | | | | + + + + + | [facility] | [address] | [place] [address] | [phone] | + + + + + [place] (12/22/2019 10:28 AM PDT) + + | [...] | | | POC | performed at [facility];888 | g/dL | LABORATORY | | | | [address];[place], [place] | | | | | | [address] | | | | + + + + + + + + | Specimen | + + | | + + + + + + + | Performing | Address | City/State/Zipcode | Phone Number | | Organization | | | | + + + + + | [facility] | [address] | [place] [address] | [phone] | + + + + + POC HAVEN CACERES8, Arterial (12/22/2019 9:23 AM PDT) + + [...] | | | POC | performed at [facility];[address] | g/dL | LABORATORY | | | | [address];[place], [place] | | | | | | [address] | | | | + + + + + + + + | Specimen | + + | | + + + + + + + | Performing | Address | City/State/Zipcode | Phone Number | | Organization | | | | + + + + + | [facility] | [address] | [place] [address] | [phone] | + + + + + NATHANAEL [...] | | | POC | performed at [facility];[address] | g/dL | LABORATORY | | | | [address];[place] | | | | | | [address] | | | | + + + + + + + + | Specimen | + + | | + + + + + + + | Performing | Address | City/State/Zipcode | Phone Number | | Organization | | | | + + + + + | [facility] | [address] | [place] [address] | [phone] | + + + + + POC [...] | | | POC | performed at [facility];[address] | g/dL | LABORATORY | | | | [address];[place], [place] | | | | | | [address] | | | | + + + + + + + + | Specimen | + + | | + + + + + + + | Performing | Address | City/State/Zipcode | Phone Number | | Organization | | | | + + + + + | [facility] | [address] | [place] [address] | [phone] | + + + + + Type [...] + + + | BB BAND | [id number] | | [facility] | | | | | | LABORATORY | | + + + + + + | UNIT # | [id number] | | [facility] | | | | [...] | | | RESULT | performed at [facility];[address] | | LABORATORY | | | | [address];[place] | | | | | | [address] | | | | + + + + + + | UNIT # | [id number] | | [facility] | | | | [...] | + + + + + | [facility] | [address] | [place] [address] | [phone] | + + + + + POC [...] | | | POC | performed at [facility];[address] | | LABORATORY | | | | [address];[place], [place] | | | | | | [address] | | | | + + + + + + + + | Specimen | + + | | + + + + + + + | Performing | Address | City/State/Zipcode | Phone Number | | Organization | | | | + + + + + | [facility] | [address] | [place] [address] | [phone] | + + + + + Shine ORTEGA (12/22/2019 5:26 AM PDT) + + + [...] | | | | | performed at [facility];[address] | | | | | | [address] [facility];[place], [place] | | | | | | [address] | | | | + + + + + + + + | Specimen | + + | Blood | + + + + + + + | Performing | Address | City/State/Zipcode | Phone Number | | Organization | | | | + + + + + | [facility] | [address] | [place] [address] | [phone] | + + + + + CBC [...] 0.02Comment: Testing | 0.00 - 0.10 | [facility] | | | Absolute | performed at [facility], [address] | [address]/uL | LABORATORY | | | | [address], | | | | | | [place] [address] | | | | + + + + + + + + | Specimen | + + | Blood | + + + + + + + | Performing | Address | City/State/Zipcode | Phone Number | | Organization | | | | + + + + + | [facility] | [address] | [place] [address] | [phone] | + + + + + Magnesium (12/22/2019 5:26 AM PDT) + + + + + + | Component | Value | Ref Range | Performed | Pathologist | | | | | At | Signature | + + + + + + | Magnesium | 2.6 (H)Comment: Testing | 1.7 - 2.4 mg/dL | [facility] | | | | performed at [facility], [address] | | LABORATORY | | | | [address], | | | | | | [place] [address] | | | | + + + + + + + + | Specimen | + + | Blood | + + + + + + + | Performing | Address | City/State/Zipcode | Phone Number | | Organization | | | | + + + + + | [facility] | [address] | [place] [address] | [phone] | + + + + + Basic [...] 22 (L)Comment: GFR <60: | >60 | [facility] | | | GFR | CHRONIC KIDNEY [...] | | | | | performed at [facility], [address] | | | | | | [facility], | | | | | | [place] [address] | | | | + + + + + + + + | Specimen | + + | Blood | + + + + + + + | Performing | Address | City/State/Zipcode | Phone Number | | Organization | | | | + + + + + | [facility] | [address] | [place] [address] | [phone] | + + + + + POC [...] | | | POC | performed at [facility];[address] | | LABORATORY | | | | [address];[place] | | | | | | [address] | | | | + + + + + + + + | Specimen | + + | | + + + + + + + | Performing | Address | City/State/Zipcode | Phone Number | | Organization | | | | + + + + + | [facility] | [address] | [place] [address] | [phone] | + + + + + POC [...] | | | POC | performed at [facility];[address] | | LABORATORY | | | | [address];[place] | | | | | | [address] | | | | + + + + + + + + | Specimen | + + | | + + + + + + + | Performing | Address | City/State/Zipcode | Phone Number | | Organization | | | | + + + + + | [facility] | [address] | [place] [address] | [phone] | + + + + + documented [...] | | | | First dose on Mon12/22/19 at 0900 | | AM PDT | [...] | | | | | | Starting [facility] 12/26/19 at 1637 | | | [...] | | | | | | | 4235-5152 Use NIGHT DOSE for | | | | | | | doses scheduled: HS, | | | | | | | Nighttime [id number] If the BG is | | | [...] | | | | | dose on 12/31/19 at 1630, Do | | | | [...]
--- OUTSIDE RECORDS SUMMARY | ~2020-01-27 | XMS | Encounter Summary ---
Demographics + + + | Address | [address] | | | [place] [address] | + + + | Home Phone | | + + + | Preferred Language | Unknown | + + + | Marital Status | | + + + | Nondenominational Affiliation | 1001 | + + + | Race | Unknown | + + + | Ethnic Group | Unknown | + + + Author + + + | Author | [facility] | | | and [place] | + + + | Organization | [facility] | | [...] [place] | | | | | [address] | | + + + + + | Deanna Lawson | ECON | Unknown | | + + + + + Care Team Providers + +------+ + | Care Reliner Name | Role | Phone | + [...] + + | 12/28/ | Anesthesia | [facility] | Maco Wolf, | | | 2019 | Event | [facility] | RETAIL ACCOUNT SPECIALIST [address] | | | | | INTRA OP [address] | [place] [address] | | | | | [address] [place] | [phone] | | | | | [address] | | | | | | [phone] | | | +--------+ + + + [...] Right; heel; other (see comments) | Savana Bowden RN | | | | (redness) | | | +--------+ + + + | Wound | 12/28/19; 2029; Pressure inj; | 12/28/192029 by | | | | Right; sacral spine | Jada | | | | | Salma, | | | | | Reconditioner | | +--------+ + + + | Urethr | 12/24/19; 1240; indicated for | 12/24/19 1240 by | 12/31/19 1140 by | | al | critically ill with need for | Saritha Tavarez, | Liz Washburn, | | Jayesh | accurate I/O; Patient/family | Reconditioner | RN | | er | educated [...] | Leatha Mayer, | | IV | dcng-pbg-svjitx catheter system; | | RN | | [...] | Isiah Jade MD | | | 2020 | Visit | | [address] [facility] | | | | | | [address] [place] | | | | | | [address] | | | | | | | | +--------+ + + + + | 02/05/ | Office | Cardiology | Dina Sanchez DO | | | 2019 | Visit | | [address] | | | | | | [place] | | | | | | [address] | | | | | | | [...] | | | | | | [place] [address] | | | | | | [phone] | | | | | | | | +--------+ + + + + | 03/09/ | Office | Nephrology | Isiah Jade MD | | | 2019 | Visit | | [address] [facility] | | | | | | [address] [place], [place] | | | | | | [address] | | | | | | | [...] 20 9:05 | | | | | 20 at 0905, Anesthesia | | AM PDT [...]
--- OUTSIDE RECORDS SUMMARY | ~2020-01-27 | XMS | Encounter Summary ---
Demographics + + + | Address | [address] | | | [place] [address] | + + + | Home Phone | | + + + | Preferred Language | Unknown | + + + | Marital Status | | + + + | Rastafari Affiliation | 1001 | + + + | Race | Unknown | + + + | Ethnic Group | Unknown | + + + Author + + + | Author | [facility] | | | and [place] | + + + | Organization | [facility] | | | [...] [place] | | | | | [address] | | + + + + + | Deanna Lawson | ECON | Unknown | | + + + + + Care Team Providers + +------+ + | Care Special Delivery Carrier Name | Role | Phone | + +------+ + | Barbara Gilman MD | PCP | | + +------+ + Encounter Details +--------+---------+ + + + | Date | Type | Department | Care Team | Description | +--------+---------+ + + + | 05/07/ | Office | [facility] | Enoch Thompson, | Cardiac pacemaker in | | 2019 | Visit | CARDIOLOGY OPHELIA | [address] | situ; Permanent | | | | [address] | [place], [place] | atrial fibrillation | | | | [place], [place] | [address] | (HCC) | | | | [address] | | | | | | [phone] | | | +--------+---------+ + + + [...] pacemaker in situ Overview He has a [employer] Altrua single-chamber RV pacemaker that was [...] 2019. Normal device function was seen tofrancesca ay for this [employer] single-chamber device. The pacing threshold was [...] mild concentric LVH. He has a single-chamber [employer] ventricular pacemaker that is nearing elective [...] mild concentric LVH. He has a single-chamber [employer] ventricular pacemaker that is nearing elective replacement indicator status. He has been pacing the right ventricle 99% o f the time. Anticoagulated with apixaban. He has only been taking 2.5 mg twice per day, because of cierra al dysfunction and age. The chads 2 vascular score is 4. 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 Priority: High Note Last Updated: 05/07/2019 He has a [employer] Altrua single-chamber RV pacemaker that was [...] function was seen tofrancesca marcus for this [employer] single-chamber device. The pacing threshold was [...] arora. Type 2 diabetes mellitus without complication ([facility]) 06/04/2015 Reading: Continue current therapy. I can [...] notes on file Myrtle Esteves Me dical Dry House Tender - 05/07/2019 11:30 AM Sheela COOPER Note- [...] excessively tired during the day? NO Lonnie del rosario in this encounter Plan of Treatment +--------+ + + + + | Date | Type | Specialty | Care Team | Description | +--------+ + + + + | 01/29/ | Office | Nephrology | Isiah Jade MD | | | 2019 | Visit | | [address] [facility] | | | | | | [address] [place] | | | | | | [address] | | | | | | | | +--------+ + + + + | 02/05/ | Office | Cardiology | Dina Sanchez DO | | | 2019 | Visit | | [address] | | | | | | [place] | | | | | | [address] | | | | | | | [...] | | | | | | [place] [address] | | | | | | [phone] | | | | | | | | +--------+ + + + + | 03/09/ | Office | Nephrology | Isiah Jade MD | | | 2019 | Visit | | [address] [facility] | | | | | | [address] [place], [place] | | | | | | [address] | | | | | | | | +--------+ + + + + documented as of this encounter Visit Diagnoses + + | Diagnosis | + + | Cardiac pacemaker in situ | + + | Permanent atrial fibrillation (HCC) Atrial fibrillation | + + documented in this encounter
--- OUTSIDE RECORDS SUMMARY | ~2020-01-27 | XMS | Encounter Summary ---
Demographics + + + | Address | [address] | | | [place] [address] | + + + | Home Phone [...] [place] | | | | | [address] | | + + + + + | Deanna Lawsno | ECON | Unknown | | + + + + + Care Team Providers + +------+ + | Care Data Modeling Specialist Name | Role | Phone | + +------+ + | Barbara Gilman MD | PCP | | + +------+ + Encounter Details +--------+---------+ + + + | Date | Type | Department | Care Team | Description | +--------+---------+ + + + | 05/07/ | Office | [facility] | Enoch Thompson, | Cardiac pacemaker in | | 2019 | Visit | CARDIOLOGY OPHELIA | [address] | situ; Permanent | | | | [address] | [place], [place] | atrial fibrillation | | | | [place], [place] | [address] | (HCC) | | | | [address] | | | | | | [phone] | | | +--------+---------+ + + + [...] pacemaker in situ Overview He has a [employer] Altrua single-chamber RV pacemaker that was [...] function was seen tofrancesca ay for this [employer] single-chamber device. The pacing threshold was [...] mild concentric LVH. He has a single-chamber [employer] ventricular pacemaker that is nearing elective [...] mild concentric LVH. He has a single-chamber [employer] ventricular pacemaker that is nearing elective replacement indicator status. He has been pacing the right ventricle 99% o f the time. Anticoagulated with apixaban. He has only been taking 2.5 mg twice per day, because of cierra al dysfunction and age. The chads 2 vascular score is 4. 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 Priority: High Note Last Updated: 05/07/2019 He has a [employer] Alt[employer]a single-chamber RV pacemaker that was [...] function was seen tofrancesca marcus for this [employer] single-chamber device. The pacing threshold was [...] 2 diabetes mellitus without complication ([facility]) 06/04/2015 Reading: Continue current therapy. I [...] notes on file Myrtle Esteves Me dical Biomechanical Engineer - 05/07/2019 11:30 AM Sheela COOPER Note- [...] 2019 | Visit | | [address] [facility] | | | | | | [address] [place] | | | | | | [address] | | | | | | | | +--------+ + + + + | 02/05/ | Office | Cardiology | Dina Sanchez DO | | | 2019 | Visit | | [address] | | | | | | [place] | | | | | | [address] | | | | | | | [...] | | | | | | [place] [address] | | | | | | [phone] | | | | | | | | +--------+ + + + + | 03/09/ | Office | Nephrology | Isiah Jade MD | | | 2019 | Visit | | [address] [facility] | | | | | | [address] [place], [place] | | | | | | [address] | | | | | | | | +--------+ + + + + documented as of this encounter Visit Diagnoses + + | Diagnosis | + + | Cardiac pacemaker in situ | + + | Permanent atrial fibrillation (HCC) Atrial fibrillation | + + documented in this encounter
--- OUTSIDE RECORDS SUMMARY | ~2020-01-27 | XMS | Encounter Summary ---
Demographics + + + | Address | [address] | | | [place] [address] | + + + | Home Phone | | + + + | Preferred Language | Unknown | + + + | Marital Status | | + + + | Presybeterian Affiliation | 1001 | + + + | Race | Unknown | + + + | Ethnic Group | Unknown | + + + Author + + + | Author | [facility] | | | and [place] | + + + | Organization | [facility] | | | [...] [place] | | | | | [address] | | + + + + + | Deanna Lawson | ECON | Unknown | | + + + + + Care Team Providers + +------+ + | Care Ore Buyer Name | Role | Phone | + +------+ + | Barbara Gilman MD | PCP | | + +------+ + Encounter Details +--------+ + + + + | Date | Type | Department | Care Team | Description | +--------+ + + + + | 01/25/ | Orders Only | [facility] | Enoch Thompson, | | | 2019 | | CARDIOLOGY FANCY GAP | [address] | | | | | [address] | [place], [place] | | | | | [place], [place] | [address] | | | | | [address] | | | | | | [phone] | | | +--------+ + + + [...] 2019 | Visit | | [address] [facility] | | | | | | [address] [place] | | | | | | [address] | | | | | | | | +--------+ + + + + | 02/05/ | Office | Cardiology | Dina Sanchez DO | | | 2019 | Visit | | [address] | | | | | | [place] | | | | | | [address] | | | | | | | | +--------+ + + + + | 02/09/ | Procedure | Cardiology | | | | 2019 | visit | | | | +--------+ + + + + | 02/17/ | Office | Orthopedic Surgery | SashaMelquiades | | | 2019 | Visit | | [address] | | | | | | [address] [address], | | | | | | [place] [address] | | | | | | [phone] | | | | | | | | +--------+ + + + + | 03/09/ | Office | Nephrology | Isiah Jade MD | | | 2019 | Visit | | [address] [facility] | | | | | | [address] [place] | | | | | | [address] | | | | | | | [...]
--- OUTSIDE RECORDS SUMMARY | ~2020-01-27 | XMS | Encounter Summary ---
Demographics + + + | Address | [address] | | | [place] [address] | + + + | Home Phone [...] [address] | | | | | [place] | | | | | [address] | | + + + + + | Deanna Lawson | ECON | Unknown | | + + + + + Care Team Providers + +------+ + | Care Nurse Transitional Name | Role | Phone | + +------+ + | Barbara Gilman MD | PCP | | + +------+ + Encounter Details +--------+ + + + + | Date | Type | Department | Care Team | Description | +--------+ + + + + | 10/25/ | Orders Only | [facility] | Charlee Oswald | | | 2019 | | CARDIOLOGY ALYX | [address] | | | | | [address] | [address] | | | | | [address] | [place] [address] | | | | | [place] | [phone] | | | | | [address] | | | | | | [phone] | | | +--------+ + + + [...] 2019 | Visit | | [address] [facility] | | | | | | [address] [place] | | | | | | [address] | | | | | | | | +--------+ + + + + | 02/05/ | Office | Cardiology | Dina Sanchez DO | | | 2019 | Visit | | [address] | | | | | | [place] | | | | | | [address] | | | | | | | | +--------+ + + + + | 02/09/ | Procedure | Cardiology | | | | 2019 | visit | | | | +--------+ + + + + | 02/17/ | Office | Orthopedic Surgery | Melquiades Baez | | 2019 | Visit | | [address] | | | | | | [address], | | | | | | [place] [address] | | | | | | [phone] | | | | | | | | +--------+ + + + + | 03/09/ | Office | Nephrology | Isiah Jade MD | | | 2019 | Visit | | [address] [facility] | | | | | | [address] [place] | | | | | | [address] | | | | | | | [...]
--- OUTSIDE RECORDS SUMMARY | ~2020-01-27 | XMS | Encounter Summary ---
Demographics + + + | Address | [address] | | | [place] [address] | + + + | Home Phone | | + + + | Preferred Language | Unknown | + + + | Marital Status | | + + + | Episcopal Affiliation | 1001 | + + + [...] [place] | | | | | [address] | | + + + + + | Deanna Lawson | ECON | Unknown | | + + + + + Care Team Providers + +------+ + | Care Multimedia Artist Name | Role | Phone | + +------+ + | Barbara Gilman MD | PCP | | + +------+ + Encounter Details +--------+ + + + + | Date | Type | Department | Care Team | Description | +--------+ + + + + | 04/24/ | Orders Only | [facility] | Conversion | | | 2014 | | CONVERSION [address] | Transaction, | | | | [address] | Provider Unknown | | | | | [place], [place] | | | | | | [address] | (Fax) | | | | | [phone] | | | +--------+ + + + [...] 2019 | Visit | | [address] [facility] | | | | | | [address] [place] | | | | | | [address] | | | | | | | | +--------+ + + + + | 02/05/ | Office | Cardiology | Dina Sanchez DO | | | 2019 | Visit | | [address] | | | | | | [place] | | | | | | [address] | | | | | | | | +--------+ + + + + | 02/09/ | Procedure | Cardiology | | | | 2019 | visit | | | | +--------+ + + + + | 02/17/ | Office | Orthopedic Surgery | Melquiades Baez | | | 2019 | Visit | | [address] | | | | | | [facility], | | | | | | [place] [address] | | | | | | [phone] | | | | | | | | +--------+ + + + + | 03/09/ | Office | Nephrology | Isiah Jade MD | | | 2019 | Visit | | [address] [facility] | | | | | | [address] [place] | | | | | | [address] | | | | | | | [...]
--- OUTSIDE RECORDS SUMMARY | ~2020-01-27 | XMS | Encounter Summary ---
Demographics + + + | Address | [address] | | | [place] [address] | + + + | Home Phone | | + + + | Preferred Language | Unknown | + + + | Marital Status | | + + + | Episcopalian Affiliation | 1001 | + + + | Race | Unknown | + + + | Ethnic Group | Unknown | + + + Author + + + | Author | [facility] | | | and [place] | + + + | Organization | [facility] | | [...] [place] | | | | | [address] | | + + + + + | Deanna Lawson | ECON | Unknown | | + + + + + Care Team Providers + +------+ + | Care Director Of Student Aid Name | Role | Phone | + +------+ + PCP | Unavailable | + +------+ + Encounter Details +--------+ + + + + | Date | Type | Department | Care Team | Description | +--------+ + + + + | 08/29/ | Orders Only | [facility] | Conversion | | | 2018 | | CARDIOLOGY OPHELIA | Transaction, | | | | | [address] | Provider Unknown | | | | | [place], [place] | [phone] | | | | | [address] | | | | | | [phone] | | | +--------+ + + + [...] 2019 | Visit | | [address] [facility] | | | | | | [address] [place] | | | | | | [address] | | | | | | | | +--------+ + + + + | 02/05/ | Office | Cardiology | Dina Sanchez DO | | | 2019 | Visit | | [address] | | | | | | [place] | | | | | | [address] | | | | | | | [...] | | | | | [address] [place], | | | | | | [place] [address] | | | | | | [phone] | | | | | | | | +--------+ + + + + | 03/09/ | Office | Nephrology | Isiah Jade MD | | | 2019 | Visit | | [address] [facility] | | | | | | [address] [place] | | | | | | [address] | | | | | | | [...] + + documented in this encounter Results Protime INR (08/29/2017 11:19 AM PST) + +-------+ [...]
--- OUTSIDE RECORDS SUMMARY | ~2020-01-27 | XMS | Clinical Summary ---
Demographics + + + | Address | [address] | | | [place] [address] | + + + | Home Phone | | + + + | Preferred Language | Unknown | + + + | Marital Status | | + + + | Denominational Affiliation | 1001 | + + + | Race | Unknown | + + + | Ethnic Group | Unknown | + + + Author + + + | Author | [facility] | | | and [place] | + + + | Organization | [facility] | | | [...] [place] | | | | | [address] | | + + + + + | Deanna Lawson | ECON | Unknown | | + + + + + Care Team Providers + +------+ + | Care Club Steward Name | Role | Phone | + [...] 11:54 AM | +---+ + + + +---------+----+------+------+-------+ | allopurinol | Take 1 tablet by | 90 | 3 | 05/2 | | Activ | | (ZYLOPRIM) 100 mg | mouth daily. | tablet | | 4/20 | | e | | tablet | | | | 19 | | | + + +---------+----+------+------+-------+ | carvedilol (COREG) | Take 1 tablet by | 60 | 0 | 05/1 | 06/ | Activ | | 3.125 mg tablet | mouth 2 times daily | tablet | | 3/20 | 2/20 | e | | | (with breakfast & | | | 20 | 20 | | | | dinner) for 30 days. | | | | | | + + +---------+----+------+------+-------+ | sucralfate | Take 1 tablet by | 120 | 0 | 05/1 | 06/ | Activ | | (CARAFATE) 1 g | mouth 4 times daily | tablet | | 3/20 | 2/20 | e | | tablet | (before meals and | | | 20 | 20 | | | | nightly) for 30 | | | | | | | | days. | | | | | | + + +---------+----+------+------+-------+ | albuterol 90 | Inhale 4 puffs into | 1 | 1 | 05/1 | 06 | Activ | | mcg/puff inhaler | the lungs every 6 | Inhaler | | 3/20 | 2/20 | e | | | hours for 30 days. | | | 20 | 20 | | + + +---------+----+------+------+-------+ | | Inhale 2 puffs into | 6 g | 0 | 05/1 | 06/ | Activ | | budesonide-formotero | the lungs Twice | | | 3/20 | 2/20 | e | | l (SYMBICORT) | Daily for 30 days. | | | 20 | 20 | | | 160-4.5 mcg/puff | | | | | | | | inhaler | | | | | | | + + +---------+----+------+------+-------+ | insulin lispro | Inject 0-12 Units | 10 mL | 0 | 05/1 | | Activ | | (HUMALOG) 100 | under the skin 3 | | | 3/20 | | e | | units/mL injection | times daily (with | | | 20 | | | | (vial) | meals). | | | | | | + + +---------+----+------+------+-------+ | pantoprazole | Take 1 tablet by | 60 | 3 | 05/1 | 08/1 | Activ | | (PROTONIX) 40 mg | mouth 2 times daily | tablet | | 6/20 | 4/20 | e | | tablet | (before meals) for | | | 20 | 20 | | | | 90 days. | | | | | | + + +---------+----+------+------+-------+ | metFORMIN | Take 500 mg by mouth | | 0 | 09/0 | 05/1 | Disco | | (GLUCOPHAGE) 500 mg | 3 (three) times | | | 4/20 | 3/20 | ntinu | | tablet | daily. | | | 14 | 20 | ed | + + +---------+----+------+------+-------+ | carvedilol (COREG) | Take 1 tablet by | 60 | 11 | 11/0 | 05/1 | Disco | | 25 mg tablet | mouth 2 (two) times | tablet | | 5/20 | 3/20 | ntinu | | | daily with meals. | | | 18 | 20 | ed | + + +---------+----+------+------+-------+ | furosemide (LASIX) | Take 40 mg by mouth | | 0 | 08/0 | 05/1 | Disco | | 40 mg tablet | 6 days per week. | | | 5/20 | 3/20 | ntinu | | | | | | 19 | 20 | ed | + + +---------+----+------+------+-------+ | apixaban (ELIQUIS) | Take 1 tablet by | 60 | 0 | 03/0 | 05/1 | Disco | | 2.5 mg tablet | mouth 2 times daily. | tablet | | 9/20 | 3/20 | ntinu | | | For stroke | | | 20 | 20 | ed | | | prevention | | | | | | + + +---------+----+------+------+-------+ | pantoprazole | Take 1 tablet by | 60 | 0 | 05/1 | 05/1 | Disco | | (PROTONIX) 40 mg | mouth 2 times daily | tablet | | 11/07 | 02/07 | ntinu | | tablet | (before meals) for | | | 20 | 20 | ed | | | 30 days. | | | | | (Reor | | | | | | | | immanuel) | + + +---------+----+------+------+-------+ Active Problems + + + | Problem | Noted Date | + + + | Bleeding duodenal [...] + + + + | Overview: His KVD1HL2- VASC score is 6( HTN, age, stroke, [...] | 09/13/2018 | + + + | Chronic kidney disease, stage IV (severe) | 09/13/2018 | + + + | [...] mild concentric LVH. 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 The | | pacing [...] Nelson | Other (PCP progress | | 2020 | on | | Kita Sterling | note 01/23/20) | | | | | Director Operating Room | | +--------+ + + + + [...] | 01/05/ | Documentati | Nephrology | Damon, | Other (Dr. Jade | | 2019 | on | | Kita Sterling | orders) | | | | | Director Operating Room | | +--------+ + + + + [...] Nephrology | Isiah Jade MD | Other ([facility] F/ | | 2019 | | | | ) | +--------+ + + + + | 12/28/ | Anesthesia | | Maco Wolf, | | | 2019 | Event | | LIFT SLAB OPERATOR | | +--------+ + + + + | 12/28/ | Surgery | | Lamont Hernandez MD | GRUPOD | | 2019 | | | | | +--------+ + + + + | 12/21/ | Anesthesia | | aJ Hill, | | | 2019 | Event | | LIFT SLAB OPERATOR | | +--------+ + + + + [...] | comminuted | | 12/31/ | | | MD King | intertrochanteric | | 2019 | | | | fracture of right [...] Hypoalbuminemia | +--------+ + + + + | 12/20/ | Intake | | | N/A | | 2019 | | | | | +--------+ + + + + | 12/01/ | Telephone | Cardiology | Charlee Oswald | Testing | | 2020 | | | [place] | | +--------+ + + + + | 11/27/ | Virtual | Cardiology | Charlee Oswald | Cardiac pacemaker in | | 2020 | Office | | [place] | situ (Primary Dx); | | | Visit | | | 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 ([facility]); | | | | | | Chronic [...] disease | | | | | | ([facility]); 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] | | | | | | [place] [address] | | | | | | [phone] | | | | | | | | +--------+ + + + + | 03/09/ | Office | Nephrology | Isiah Jade MD | | | 2019 | Visit | | [address] [facility] | | | | | | [address] [place] | | | | | | [address] | | | | | | | | +--------+ + + + + + + + + + | Health Maintenance | Due Date | Last Done | Comments | + + + + + | Vaccine: | | 03/21/1997 | | | Dtap/Tdap/Td (1 - | [...] + + | Vaccine: Influenza | | 06/21/2018, 09/11/2017, | | | (Season Ended) | 0 | 05/21/2015, Additional history | | | | | exists | | + + + + + [...] | + +--------+------+ +--------+--------+--------+ | Implant Id: [id number] - | Cardia | | | | | [id number] | | Pacer-02/04/2019Implanted: | c | | | | | /[id number] | | Qty: 1 on 02/04/2019 by [...] | | 07/20/ | 3060-0 | | [id number] - SnaImplanted: | | | MEDICAL - | | 2023 | 100S | | Qty: 1 on 12/22/2019 by | | | STRY | | | /NA | | Melquiades Baez DO at [facility] | | | | | | /[id number] | | [facility] | | | | | | 6D | | HENNIKER | | | | | | | + +--------+------+ +--------+--------+--------+ | Screw Xochitl F/T T2 Ti 5x37.5mm | Screw | | CHASIDY | | 10/18/ | 1896-5 | | - SnaImplanted: Qty: 1 on | | | MEDICAL - | | 2024 | [id number] | | 12/22/2019 by Melquiades Baez | | | STRY | | | /NA | | DO [place] at [facility] | | | | | | /[id number] | [facility] | | | | | | 9B | + +--------+------+ +--------+--------+--------+ | Screw Xochitl F/T T2 Ti 5x37.5mm | Screw | | CHASIDY | | 10/18/ | 1896-5 | | - SnaImplanted: Qty: 1 on | | | MEDICAL - | | 2024 | [id number] | | 12/22/2019 by Melquiades Baez | | | STRY | | | /NA | | DO [place] at [facility] | | | | | | /[id number] | [facility] | | | | | | 99 | + +--------+------+ +--------+--------+--------+ | Trochanteric NailImplanted: | | | Chasidy | | 07/20/ | 3125-1 | | Qty: 1 on 12/22/2019 by | | | Medical | | 4 | 200S | | Melquiades Baez DO at [facility] | | | | | | /NA | | [facility] | | | | | | /[id number] | | CENTER | | | | | | E8 [...] + +--------+ + + + | *TERMED* MT UPPER GI | Routin | 12/29/2019 | [...] + +--------+ + + + | GATO JHONNYNATHANAEL JARAMILLO, | Routin | 12/22/2019 | | [...] | | Sasha | +---+--------+ + +--------+ + + + | NATHANAEL [...] + + from Last 3 Months Results XR Hip Right 2-3 Views (01/21/2020 [...] Baez DO has created this entry using [employer] | | | Recognition software and [employer]. The entry has been reviewed | | | and there may still exist sound alike word errors. | | | | | |Electronically signed by: Melquiades Baez DO 01/24/2020 1:05 PM | | | | | | | | |Melquiades Baez DO has created this entry using [employer] | | |Recognition software and [employer] macros. The entry has been reviewed and | | |there may still exist sound alike word errors. | | | | | + + + + +---------+ + + | Performing | Address | City/State/Zipcode | Phone Number | | Organization | | | | + +---------+ + + | [facility] | | | | + +---------+ + + POC Glucose (01/01/2020 11:24 AM [...] Testing | 65 - 99 mg/dL | [facility] | | | POC | performed at [facility];[address] | | LABORATORY | | | | [address];[place] | | | | | | [address] | | | | + + + + + + + + | Specimen | + + | | + + + + + + + | Performing | Address | City/State/Zipcode | Phone Number | | Organization | | | | + + + + + | [facility] | [address] | [place] [address] | [phone] | + + + + + CBC [...] | | | Absolute | performed at [facility];[address] | K/uL | LABORATORY | | | | [address];[place] | | | | | | [address] | | | | + + + + + + + + | Specimen | + + | Blood | + + + + + + + | Performing | Address | City/State/Zipcode | Phone Number | | Organization | | | | + + + + + | [facility] | [address] | [place] [address] | [phone] | + + + + + Basic Metabolic Panel (01/01/2020 4:07 AM PDT)Only the most recent of 9 results within the time period is included. [...] 23 (L)Comment: GFR <60: | >60 | [facility] | | | GFR | [...] | | | | | performed at [facility];[address] | | | | | | [facility];[place], [place] | | | | | | [address] | | | | + + + + + + + + | Specimen | + + | Blood | + + + + + + + | Performing | Address | City/State/Zipcode | Phone Number | | Organization | | | | + + + + + | [facility] | [address] | [place] [address] | [phone] | + + + + + Hemoglobin [...] [facility] | | | | performed at [facility];[address] | | LABORATORY | | | | [address];[place], [place] | | | | | | [address] | | | | + + + + + + + + | Specimen | + + | Blood | + + + + + + + | Performing | Address | City/State/Zipcode | Phone Number | | Organization | | | | + + + + + | [facility] | [address] | [place] [address] | [phone] | + + + + + Surgical [...] in two | | | containers, labeled "Ramirez Andres Jones." A. The specimen, | | | labeled "Ramirez Andres Saucedoony, gastric biopsy," is received in | | [...] | | technical component was performed by [facility], [address] [place] [address] | | | [place] [address] (Manager Radio: Padmini Sellers MD; CLIA# | | | [id number]). [facility] | | | [address], | | | [place] [address] (Manager Radio: Oscar Maynard M.D.; CLIA#: | | | [id number]). Diagnostician: Padmini Sellers | | | MDPathologistElectronically [...] | |The technical component was performed by [facility], [address] [place] [address] (Manager Radio: Padmini Sellers MD; CLIA# [id number]). Professional interpretation was performed by | | |[place] [id number] (Manager Radio: Oscar Maynard M.D.; CLIA#: [id number]). | | | | | |Diagnostician: Padmini [...] Performed At | + + + | [facility] | [facility] | | [facility] | PROVATION | | CenterGastroenterology | | | Patient Name: Andres Guzmán | | | Procedure Date: 12/29/2019 8:36 AMMRN: [id number] | | | of : 1930 | [...] the anesthesiologist and the | | | tire technician in the pre-procedure area in the [...] | | | with Gold probe 7 Austrian x 5 pulses was successful with | [...] | | | AMNumber of Addenda: 0 [facility] | | | - Check hemoglobin q 6 hours for one day. | | | | | | | | |LAMONT HERNANDEZ MD | | |12/29/2019 10:19:54 AM | | |This report has been signed electronically. | | | | | |Note Initiated On: 12/29/2019 8:36 AM | | |Number of Addenda: 0 | | | | | | [facility] | | + + + [...] | | | | | performed at [facility];[address] | | | | | | [address];[place] | | | | | | [address] | | | | + + + + + + + + | Specimen | + + | Blood | + + + + + + + | Performing | Address | City/State/Zipcode | Phone Number | | Organization | | | | + + + + + | [facility] | [address] | [place] [address] | [phone] | + + + + + Fecal [...] | LABORATORY | | | | [facility];[address];[place] [address] | | | | + + + + + + + + | Specimen | + + | Stool - Stool | | specimen (specimen) | + + + + + + + | Performing | Address | City/State/Zipcode | Phone Number | | Organization | | | | + + + + + | [facility] | [address] | [place] [address] | [phone] | + + + + + Red [...] Product | [employer] | | [facility] | | | Code | | | [...] | [facility] | | | COMMENT | [facility];[address] [facility] | | LABORATORY | | | | Blvd;[place] [address] | | | | + + + + + + + + | Specimen | + + | | + + + + + + + | Performing | Address | City/State/Zipcode | Phone Number | | Organization | | | | + + + + + | [facility] | [address] | [place] [address] | [phone] | + + + + + Type [...] + + + | BB BAND | [id number] | | [facility] | | | | | | LABORATORY | | + + + + + + | UNIT # | [id number] | | [facility] | | | | [...] + + + | UNIT # | [id number] | | [facility] | | | | [...] | | | RESULT | performed at [facility];[address] | | LABORATORY | | | | [address];[place] | | | | | | [address] | | | | + + + + + + + + | Specimen | + + | Blood | + + + + + + + | Performing | Address | City/State/Zipcode | Phone Number | | Organization | | | | + + + + + | [facility] | [address] | [place] [address] | [phone] | + + + + + Procalcitonin [...] | | | | | | at [facility];[address] | | | | | | [place];[place] [address] | | | | + + + + + + + + | Specimen | + + | Blood | + + + + + + + | Performing | Address | City/State/Zipcode | Phone Number | | Organization | | | | + + + + + | [facility] | [address] | [place] [address] | [phone] | + + + + + Vitamin D, Deficiency Screen (25-Hydroxy) (12/27/2019 5:04 AM PDT) + + + + + + | Component | Value | Ref Range | Performed | Pathologist | | | | | At | Signature | + + + + + + | Vit D, | 25.2 (L)Comment: Vitamin | 30.0 - 100.0 | [facility] | | | 25-Hydroxy | D deficiency has been | ng/mL | LABORATORY | | | | defined by the [place] | | | | | | ofMedicine [...] IOM | | | | | | ([place] [employer]). | | | | | [...] | | | | | guideline. JCEM. 2011 | | | | | | Hugh; | | | | | | 96(7):1911-30.Testing | | | | | | performed at [facility], | | | | | | [address], | | | | | | [facility] [address] | | | | + + + + + + + + | Specimen | + + | Blood | + + + + + + + | Performing | Address | City/State/Zipcode | Phone Number | | Organization | | | | + + + + + | [facility] | [address] | [place] [address] | [phone] | + + + + + Potassium (12/27/2019 12:08 AM PDT) + + + + + + | Component | Value | Ref Range | Performed | Pathologist | | | | | At | Signature | + + + + + + | K | 4.0Comment: Testing | 3.5 - 4.9 | [facility] | | | | performed at [facility];[address] | mmol/L | LABORATORY | | | | [facility];[place], [place] | | | | | | [address] | | | | + + + + + + + + | Specimen | + + | Blood | + + + + + + + | Performing | Address | City/State/Zipcode | Phone Number | | Organization | | | | + + + + + | [facility] | [address] [facility] | [place] [address] | [phone] | + + + + + Magnesium (12/27/2019 12:08 AM PDT)Only the most recent of 4 results within the time period is included. + + + + + + | Component | Value | Ref Range | Performed | Pathologist | | | | | At | Signature | + + + + + + | Magnesium | 2.2Comment: Testing | 1.7 - 2.4 mg/dL | [facility] | | | | performed at [facility];[address] | | LABORATORY | | | | [facility];[place] | | | | | | [address] | | | | + + + + + + + + | Specimen | + + | Blood | + + + + + + + | Performing | Address | City/State/Zipcode | Phone Number | | Organization | | | | + + + + + | [facility] | [address] | [place] [address] | [phone] | + + + + + ECG 12 lead (12/26/2019 11:45 PM PDT)Only the most recent of 2 [...] | | | + +---------+ + + Complement C3 Ag (12/26/2019 12:33 PM PDT) + + + + + + | Component | Value | Ref Range | Performed | Pathologist | | | | | At | Signature | + + + + + + | C3 | 53 (L)Comment: Testing | 82 - 167 mg/dL | [facility] | | | COMPLEMENT | performed at [facility], | | LABORATORY | | | | [address], | | | | | | [facility] [address] | | | | + + + + + + + + | Specimen | + + | | + + + + + + + | Performing | Address | City/State/Zipcode | Phone Number | | Organization | | | | + + + + + | [facility] | [address] | [place] [address] | [phone] | + + + + + Complement C4 Ag (12/26/2019 12:33 PM PDT) + + + + + + | Component | Value | Ref Range | Performed | Pathologist | | | | | At | Signature | + + + + + + | C4 | 15Comment: Testing | 14 - 44 mg/dL | [facility] | | | COMPLEMENT | performed at [facility], | | LABORATORY | | | | [address], | | | | | | [facility] [address] | | | | + + + + + + + + | Specimen | + + | | + + + + + + + | Performing | Address | City/State/Zipcode | Phone Number | | Organization | | | | + + + + + | [facility] | [address] | [place] [address] | [phone] | + + + + + Parathyroid Hormone, Intraoperative (12/26/2019 4:25 AM PDT) + + + + + + | Component | Value | Ref Range | Performed | Pathologist | | | | | At | Signature | + + + + + + | PTH Intact | 167.0 (H)Comment: | 8.7 - 79.6 | [facility] | | | | Testing performed at | pg/mL | LABORATORY | | | | [facility];[address] | | | [address];[place] [address] | | | | + + + + + + + + | Specimen | + + | | + + + + + + + | Performing | Address | City/State/Zipcode | Phone Number | | Organization | | | | + + + + + | [facility] | [address] | [place] [address] | [phone] | + + + + + Renal Function Panel (12/26/2019 4:25 AM PDT)Only the most recent of [...] 13 (L)Comment: GFR <60: | >60 | [facility] | | | GFR | [...] | | | | | performed at [facility], [address] | | | | | | [facility], | | | | | | [place] [address] | | | | + + + + + + + + | Specimen | + + | Blood | + + + + + + + | Performing | Address | City/State/Zipcode | Phone Number | | Organization | | | | + + + + + | [facility] | [address] | [place] [address] | [phone] | + + + + + ECHO [...] [facility] | | | | performed at [facility];[address] | | LABORATORY | | | | [address];[place], [place] | | | | | | [address] | | | | + + + + + + + + | Specimen | + + | Blood | + + + + + + + | Performing | Address | City/State/Zipcode | Phone Number | | Organization | | | | + + + + + | [facility] | [address] | [place] [address] | [phone] | + + + + + Immunoglobulin, Free Light Chain (12/25/2019 4:22 AM PDT) + + + + + + | Component | Value | Ref Range | Performed | Pathologist | | | | | At | Signature | + + + + + + | [place] Free | 121.2 (H) | 3.3 - 19.4 mg/L | [facility] | | | Light | | | LABORATORY | | | Chain, | | | | | | Serum | | | | | + + + + + + | LAMBDA | 96.7 (H) | 5.7 - 26.3 mg/L | [facility] | | | QUANT FREE | | | LABORATORY | | | LIGHT | | | | | | CHAINS | | | | | + + + + + + | [place] | 1.25Comment: Testing | 0.26 - 1.65 | [facility] | | | a Free | performed at [facility] | | LABORATORY | | | Light Chain | [place] [address] | | | | | Ratio | [place] [address] | | | | + + + + + + + + | Specimen | + + | Blood | + + + + + + + | Performing | Address | City/State/Zipcode | Phone Number | | Organization | | | | + + + + + | [facility] | [address] | [place] [address] | [phone] | + + + + + Sedimentation Rate (12/25/2019 4:22 AM PDT) + + + + + + | Component | Value | Ref Range | Performed | Pathologist | | | | | At | Signature | + + + + + + | ESR | 6Comment: Testing | 0 - 20 mm/Hr | [facility] | | | | performed at [facility], [address] | | LABORATORY | | | | [address], | | | | | | [place] [address] | | | | + + + + + + + + | Specimen | + + | Blood | + + + + + + + | Performing | Address | City/State/Zipcode | Phone Number | | Organization | | | | + + + + + | [facility] | [address] | [place] [address] | [phone] | + + + + + Glomerular [...] by | | | | | | [facility], [address] | | | | | | [place] | | | | | | [address] | | | | + + + + + + + + | Specimen | + + | Blood | + + + + + + + | Performing | Address | City/State/Zipcode | Phone Number | | Organization | | | | + + + + + | [facility] | [address] | [place] [address] | [phone] | + + + + + Hepatitis [...] <0.1Comment: | 0.0 - 0.9 s/co | [facility] | | | | | ratio | [...] Amplificationtest | | | | | | ([id number]).Testing | | | | | | performed at [facility], | | | | | | [address], [facility] [address], | | | | | | [facility] [address] | | | | + + + + + + + + | Specimen | + + | Blood | + + + + + + + | Performing | Address | City/State/Zipcode | Phone Number | | Organization | | | | + + + + + | [facility] | [address] | [place] [address] | [phone] | + + + + + Cytoplasmic [...] | | | | | with both MT-3 and | | | | | | [...] [facility], | | | | | | [address], | | | | | | [place] [address] | | | | + + + + + + + + | Specimen | + + | Blood | + + + + + + + | Performing | Address | City/State/Zipcode | Phone Number | | Organization | | | | + + + + + | [facility] | [address] | [place] [address] | [phone] | + + + + + Lactate Dehydrogenase (12/25/2019 4:22 AM PDT) + + + + + + | Component | Value | Ref Range | Performed | Pathologist | | | | | At | Signature | + + + + + + | LDH TOTAL | 154Comment: Testing | 120 - 246 U/L | [facility] | | | | performed at [facility] [place] | | [facility] | | | | [place]alia Mccain;[place] | | | | | | [address] | | | | + + + + + + + + | Specimen | + + | Blood | + + + + + + + | Performing | Address | City/State/Zipcode | Phone Number | | Organization | | | | + + + + + | [facility] | [address] [facility] | [place] [address] | [phone] | + + + + + Protein/Creatinine Ratio, Urine (12/25/2019 12:01 AM PDT) + + + + + + | Component | Value | Ref Range | Performed | Pathologist | | | | | At | Signature | + + + + + + | PRO/CREA | 0.942Comment: Testing | | [facility] | | | RATIO,URINE | performed at [facility], [address] | | LABORATORY | | | | [address], | | | | | | [place] [address] | | | | + + + + + + + + | Specimen | + + | Urine | + + + + + + + | Performing | Address | City/State/Zipcode | Phone Number | | Organization | | | | + + + + + | [facility] | [address] | [place] [address] | [phone] | + + + + + Protein, [...] LABORATORY | | | | performed at [facility], [address] | | | | | [address], | | | | | | [place] [address] | | | | + + + + + + + + | Specimen | + + | | + + + + + + + | Performing | Address | City/State/Zipcode | Phone Number | | Organization | | | | + + + + + | [facility] | [address] | [place] [address] | [phone] | + + + + + Creatinine, [...] | 139.0Comment: NO NORMAL | mg/dL | [facility] | | | random | RANGE ESTABLISHEDTesting | | LABORATORY | | | urine | performed at [facility], [address] | | | | | [address] [facility], | | | | | | [place] [address] | | | | + + + + + + + + | Specimen | + + | | + + + + + + + | Performing | Address | City/State/Zipcode | Phone Number | | Organization | | | | + + + + + | [facility] | [address] | [place] [address] | [phone] | + + + + + XR [...] | | | Arterial, | performed at [facility] | | LABORATORY | | | POC | [address] [facility];[place], [place] | | | | | | [address] | | | | + + + + + + + + | Specimen | + + | | + + + + + + + | Performing | Address | City/State/Zipcode | Phone Number | | Organization | | | | + + + + + | [facility] | [address] | [place] [address] | [phone] | + + + + + Coronavirus (COVID-19) NAAT (12/24/2019 1:10 PM PDT) + + + + + + | Component | Value | Ref Range | Performed | Pathologist | | | | | At | Signature | + + + + + + | SARS-CoV-2, | NEGATIVEComment: Testing | NEG | [facility] | | | YOU | performed at [facility];[address] | | LABORATORY | | | (COVID-19) | [address];[place], [place] | | | | | | [address] | | | | + + + + + + + + | Specimen | + + | Tissue - Entire | | nasopharynx (body | | structure) | + + + + + + + | Performing | Address | City/State/Zipcode | Phone Number | | Organization | | | | + + + + + | [facility] | [address] | [place] [address] | [phone] | + + + + + Culture, Blood (12/24/2019 1:02 PM PDT)Only the most recent of 2 results within the time p thu is included. + + + + + + | Component | Value | Ref Range | Performed | Pathologist | | | | | At | Signature | + + + + + + | Special | LF ARM | | [facility] | | | Requests | | | LABORATORY | | + + + + + + | Special | Testing performed at | | [facility] | | | Requests | [facility];[address] | LABORATORY | | | | [address];[place] [address] | | | | + + + + + + | RESULT | NO GROWTH 6 DAYS | | [facility] | | | | | | LABORATORY | | + + + + + + | RESULT | Testing performed at | | [facility] | | | | TCL, [address] [facility] | | LABORATORY | | | | [place] | | | | | | [address]Bmofdlh: Testing | | | | | | performed at [facility], [address] | | | | | | [address] [place] | | | | | | [address] | | | | + + + + + + + + | Specimen | + + | Blood - Peripheral | | blood specimen | | (specimen) | + + + + + + + | Performing | Address | City/State/Zipcode | Phone Number | | Organization | | | | + + + + + | [facility] | [address] | [place] [address] | [phone] | + + + + + Urinalysis [...] - 1.030 | [facility] | | | [place], | | | LABORATORY | | | [...] | 1+ (A)Comment: Testing | NONE | [facility] | | | Urine | performed at [facility], [address] | | LABORATORY | | | | [address], | | | | | | [place] [address] | | | | + + + [...] | + + + + + | [facility] | [address] | [place] [address] | [phone] | + + + + + Sodium, Urine, Random (12/24/2019 12:45 PM PDT) + + + + + + | Component | Value | Ref Range | Performed | Pathologist | | | | | At | Signature | + + + + + + | Sodium, | 52Comment: NO NORMAL | mmol/L | [facility] | | | Random | [facility] ESTABLISHEDTesting | | LABORATORY | | | urine | performed at [facility], [address] | | | | | | [address], | | | | | | [place] [address] | | | | + + + [...] | + + + + + | [facility] | [address] | [place] [address] | [phone] | + + + + + Lactic Acid (12/24/2019 12:27 PM PDT) + + + + + + | Component | Value | Ref Range | Performed | Pathologist | | | | | At | Signature | + + + + + + | Lactate, | 1.6Comment: Testing | 0.4 - 2.0 | [facility] | | | Serum | performed at [facility];[address] | mmol/L | LABORATORY | | | | [address];[place], [place] | | | | | | [address] | | | | + + + + + + + + | Specimen | + + | Blood | + + + + + + + | Performing | Address | City/State/Zipcode | Phone Number | | Organization | | | | + + + + + | [facility] | [address] | [place] [address] | [phone] | + + + + + CBC [...] LABORATORY | | | | performed at [facility];[address] | | | | | | [address];[place] | | | | | | [address] | | | | + + + + + + + + | Specimen | + + | Blood | + + + + + + + | Performing | Address | City/State/Zipcode | Phone Number | | Organization | | | | + + + + + | [facility] | [address] | [place] [address] | [phone] | + + + + + Phosphorus (12/23/2019 4:04 AM PDT) + + + + + + | Component | Value | Ref Range | Performed | Pathologist | | | | | At | Signature | + + + + + + | Phosphorus | 4.6Comment: Testing | 2.3 - 4.8 mg/dL | [facility] | | | | performed at [facility];[address] | | LABORATORY | | | | [address];[place], [place] | | | | | | [address] | | | | + + + + + + + + | Specimen | + + | Blood | + + + + + + + | Performing | Address | City/State/Zipcode | Phone Number | | Organization | | | | + + + + + | [facility] | [address] | [place] [address] | [phone] | + + + + + Hemoglobin (12/22/2019 9:37 PM PDT) + + + + + + | Component | Value | Ref Range | Performed | Pathologist | | | | | At | Signature | + + + + + + | Hemoglobin | 9.1 (L)Comment: Testing | 13.2 - 17.0 | [facility] | | | | performed at [facility];[address] | g/dL | LABORATORY | | | | [address];[place], [place] | | | | | | [address] | | | | + + + + + + + + | Specimen | + + | Blood | + + + + + + + | Performing | Address | City/State/Zipcode | Phone Number | | Organization | | | | + + + + + | [facility] | [address] | [place] [address] | [phone] | + + + + + Hematocrit (12/22/2019 9:37 PM PDT) + + + + + + | Component | Value | Ref Range | Performed | Pathologist | | | | | At | Signature | + + + + + + | Hematocrit | 27.4 (L)Comment: Testing | 39.0 - 50.0 % | [facility] | | | | performed at [facility];[address] | | LABORATORY | | | | [address];[place] | | | | | | [address] | | | | + + + + + + + + | Specimen | + + | Blood | + + + + + + + | Performing | Address | City/State/Zipcode | Phone Number | | Organization | | | | + + + + + | [facility] | [address] | [place] [address] | [phone] | + + + + + Red Blood Cells (PRBC) - Transfuse (12/22/2019 5:12 PM PDT)Only the most recent of 2 resul ts within the time period is included.NATHALIA Mathew (12/22/2019 10:28 AM PDT) + + | Specimen | + + | | + + + + + | Impressions | Performed At | + + + | Fluoroscopic service for right hip fixation. This report is for | [facility] | | radiation documentation purposes only. Signed by: Denis | | | Eliezer [place] Date/Time: 12/22/2019 [...] | | + +---------+ + + POC MORRIS, CG8, Arterial (12/22/2019 10:03 AM PDT)Only the [...] (LL)Comment: Testing | 13.7 - 16.7 | [facility] | | | POC | performed at [facility];[address] | g/dL | LABORATORY | | | | [address];[place], [place] | | | | | | [address] | | | | + + + + + + + + | Specimen | + + | | + + + + + + + | Performing | Address | City/State/Zipcode | Phone Number | | Organization | | | | + + + + + | [facility] | [address] | [place] [address] | [phone] | + + + + + Airway [...] documentation. | | + + + POC NATHANAEL CACERES, Venous (12/22/2019 8:03 AM PDT) + + [...] | | | POC | performed at [facility];[address] | g/dL | LABORATORY | | | | [address];[place] | | | | | | [address] | | | | + + + + + + + + | Specimen | + + | | + + + + + + + | Performing | Address | City/State/Zipcode | Phone Number | | Organization | | | | + + + + + | [facility] | [address] | [place] [address] | [phone] | + + + + + LABS - EXTERNAL SCAN (11/28/2019 12:00 AM PDT) + + + | Narrative | Performed At | + + + | Ordered by an | | | unspecified provider. | | + + + Device Interrogation - Remote (11/11/2019 8:00 AM PDT) + + + | Narrative | Performed At | + + + | Mercedez Jensen | [facility] | | Herson, Security Lead 11/12/2019 4:50 [facility] | | | INTERROGATION REPORT Name: Andres Guzmán PCP: Barbara Elkins | | | MD Mukul : 1930MRN: [id number] Primary cardiology | | | provider: Charlee Oswald Primary electrophysiology provider: Enoch | | | Jay Device philosophy faculty: Soum Device type: Single | | | chamber [...] + + | Performing | Address | City/State/[facility] | Phone Number | | Organization | | | | + +---------+ + + | [facility] | | | | + +---------+ + + from Last 3 Months Insurance [...] +--------+ +---------+--------+ | MEDICARE | MEDICA | [id number] | 04/21/19 | [phone] | | Medica | | | RE | | 97-Pre | 5 | | re | | | PART A | | sent | | | | | | AND B | | | | | | + +--------+ +--------+ +---------+--------+ | INDIVIDUAL ASSURANCE | INDIVI | [id number] | | | | Indemn | | [...] Robert | al/Fam | | 1930 | [phone] | [place] | | | quique | | | 1 (Home) | [address] | + +--------+ +--------+ + + Advance Directives + + + + + | Type | Date Recorded | Patient | Explanation | | | | Teletype Operator | | + + + + + | Power of | | | | | Escape Wheel Tooth Cutter | | | | + + + [...]
--- OUTSIDE RECORDS SUMMARY | ~2020-01-27 | XMS | Encounter Summary ---
Demographics + + + | Address | [address] | | | [place] [address] | + + + | Home Phone | | + + + | Preferred Language | Unknown | + + + | Marital Status | | + + + | Buddhism Affiliation | 1001 | + + + | Race | Unknown | + + + | Ethnic Group | Unknown | + + + Author + + + | Author | [facility] | | | and [place] | + + + | Organization | [facility] | | | [...] [place] | | | | | [address] | | + + + + + | Deanna Lawson | ECON | Unknown | | + + + + + Care Team Providers + +------+ + | Care Transportation Operations Manager Name | Role | Phone | + +------+ + | Barbara Gilman MD | PCP | | + +------+ + Encounter Details +--------+ + + + + | Date | Type | Department | Care Team | Description | +--------+ + + + + | 01/03/ | Orders Only | [facility] | Lamont Acuña MD | | | 2020 | | GASTROENTEROLOGY | [address] | | | | | [address] | [place], [place] | | | | | [place], [place] | [address] | | | | | [address] | [phone] | | | | | [phone] | | | +--------+ + + + [...] | Visit | | [address] [facility] | | | | | | [address] [place] | | | | | | [address] | | | | | | | | +--------+ + + + + | 02/05/ | Office | Cardiology | Dina Sanchez DO | | | 2019 | Visit | | [address] | | | | | | [place] | | | | | | [address] | | | | | | | [...] | | | | | | [place] [address] | | | | | | [phone] | | | | | | | | +--------+ + + + + | 03/09/ | Office | Nephrology | Isiah Jade MD | | | 2019 | Visit | | [address] | | | | | | [address] [place] | | | | | | [address] | | | | | | | | +--------+ + + + + documented as of this encounter Visit Diagnoses Not on filedocumented in this encounter"
--- OUTSIDE RECORDS SUMMARY | ~2020-01-27 | XMS | Encounter Summary ---
Demographics + + + | Address | [address] | | | [place] [address] | + + + | Home Phone [...] [place] | | | | | [address] | | + + + + + | Deanna Lawson | ECON | Unknown | | + + + + + Care Team Providers + +------+ + | Care Gauger Chief Delivery Name | Role | Phone | + [...] + + | 12/28/ | Surgery | [facility] | Lamont Hernandez MD | EGD | | 2020 | | [facility] | [address] | | | | | INTRA [address] | [place] | | | | | [address] [place] | [address] | | | | | [address] | [phone] | | | | | [phone] | | | +--------+---------+ + + + [...] was on board. No immediate indication for TELLER HEAD. Patient was also seen by physical therapy and occupational therapy and was recommended for discharging to SNF. However patient will b e going to [facility] at this time. Patient also had acute [...] No CVA tenderness, no spinal tenderness Disposition: [facility] Condition: Fair No discharge procedures on file. [...] BUNCREARATIO 30 01/01/2020 PTH 72.57 (A) 04/01/2019 [id number] 25.2 (L) 12/27/2019 CALCIUM 8.6 01/01/2020 PHOS [...] been following up with ENEDINA mena in [place]. He has unrecovered acute kidney injury and a higher baseline creatinine. At this time there is no clinical uremia, refractory volume overload, refractory acidosis, refractory hyperkalemia and no urgent indication of starting TELLER HEAD. Neither is there an indication for diagnostic [...] Incentive spirometry. Transfuse Prn. No indication for TELLER HEAD for now. Await renal recovery. On discharge [...] was completed later after rounds. Dictation software, Log[employer] Light[employer], was used which may contain error for [...] but not limited to potential need for TELLER HEAD . This is a patient with multiple [...] Hancock R N - 01/01/2020 11:[facility] came to see pt to follow up on his hip incision. RN states PA has changed previously saturated dressing and pt is DC'ing home; ride is waiting downstairs. Deanna Doe RN, CMSRN, [facility] Inpatient Wound Ostomy Care [phone] 01/01/2020 11:46 AM arTom, Savana Irving RN [...] BUNCREARATIO 25 12/31/2019 PTH 72.57 (A) 04/01/2019 [id number] 25.2 (L) 12/27/2019 CALCIUM 8.5 12/31/2019 PHOS [...] been following up with ENEDINA mena in [place]. He has unrecovered acute kidney injury and a higher baseline creatinine. At this time there is no clinical uremia, refractory volume overload, refractory acidosis, refractory hyperkalemia and no urgent indication of starting TELLER HEAD. Neither is there an indication for diagnostic [...] Incentive spirometry. Transfuse Prn. No indication for TELLER HEAD for now. Await renal recovery. I discussed [...] was completed later after rounds. Dictation software, Log[employer] Light[employer], was used which may contain error for [...] but not limited to potential need for TELLER HEAD . This is a patient with multiple [...] Greene MD 12/31/2019 11:38 AM [place] [facility] - 12/31/2019 10:58 AM PDT . ORTHOPEDIC [...] injuries: see wound RN note for treatment. [facility] ed, continue wound care at swing bed, send with extra dressing supplies. *Metabolic bone disorder: elevated PTH and phosphorus. Treatment per city editor (see thei r note). Subjective No chest [...] who was admitted as a transfer from [facility] due t o a mechanical [...] and he was accepted by [facility] in [place], [place] for rehabilitation purposes. Hospital stay was [...] Medications Current Facilty-Administered PRN Medications Ordered in [facility] Medication Dose Route Frequency Provider [...] but remains week, he is accepted at [facility] in [place] with discharge plans tomorrow for rehabilit ation [...] discharge plans to Sw[facility] in [facility] tomorrow. DVT prophylaxis with SCD's only due to risks of bleeding. Discharge plans tomorrow to [facility] in [place], [place] for rehabi litation. Called his daughter Ms. Huerta and left a message with updated information at phone number [phone]. Jerry Chino MD 12/30/2019 turgill, DALILA Keys - 12/30/2019 12:35 PM PDTFormatting of this note might be different from the [facility] Service: Gastroenterology Consult Progress Note Hospital Day: LOS: 9 days SUBJECTIVE Patient Summary: This is an 89-year-old male with multiple medical problems and a his tory of hypertension, diabetes, CKD stage III who was transferred from [facility] t o a fall and [...] motor deficits. PSYCHIATRIC: Appropriate, affect appears normal [facility] Gastroenterology Patient Name: Andres Guzmán [...] physician, the nurse, the anesthesiologist and the cartography/mapping technician in the pre-procedure area in the [...] successful. Thermal coagulation with Gold probe 7 Tuvaluan x 5 pulses was successful with hemostasis. [...] 12/29/2019 8:36 AM Number of Addenda: 0 [facility] DATA Lab Results Component Value [...] ll with any questions. Florina Cantu PA-C [facility] Gastroenterology 12/30/2019 Associated attestation - Lamont Hernandez MD - 12/31/2019 2:17 PM [id number] male with GI bleeding due to duodenal ulcer with visible vessel. The ulcer and visible vessel were tr eated with injection and gold probe thermal coagulation. The patient was seen and examined by me personally. The case was discussed with the physician's medical technician assistant and I agree with the assessment and p tim as outlined in the note. Continue PPI IV infusion for total of 72 hours and then when patient is discharged he must be on twice daily PPI for 8 weeks. Resume Eliquis in 1 week. Lamont Hernandez MD Gastroenterology staffMill Neck, Marycarmen Haydee, [facility] - 12/30/2019 11:05 AM PDTFormatting [...] status. Disposition: Plan to discharge tomorrow, to Detention Facility, once medically stable and cleared by [...] BUNCREARATIO 23 12/30/2019 PTH 72.57 (A) 04/01/2019 [id number] 25.2 (L) 12/27/2019 CALCIUM 8.6 12/30/2019 PHOS [...] been following up with ENEDINA mena in [place]. That had improved with nonoliguric state but now seems to have leveled off at around 3 and this may be reflection of unrecovered acute kidney injury and a higher baseline creatinine. At this time there is no clinical uremia, refractory volume overload, refractory acidosis, refractory hyperkalemia and no urgent indication of starting TELLER HEAD. Neither is there an indication for diagnostic [...] Incentive spirometry. Transfuse Prn. No indication for TELLER HEAD for now. Await renal recovery. I discussed [...] was completed later after rounds. Dictation software, Logical Lighting, was used which may contain error for [...] but not limited to potential need for TELLER HEAD . This is a patient with multiple [...] BUNCREARATIO 30 12/29/2019 PTH 72.57 (A) 04/01/2019 [id number] 25.2 (L) 12/27/2019 CALCIUM 8.7 12/29/2019 PHOS [...] been following up with ENEDINA mena in [place]. That seems to be improving with nonoliguric state and small reduction in creatinine. At this time there is no clinical uremia, refractory volume overload, refractory acidosis, refractory hyperkalemia and no urgent indication of starting TELLER HEAD. Neither is there an indication for diagnostic [...] Incentive spirometry. Transfuse Prn. No indication for TELLER HEAD for now. Await renal recovery. I discussed [...] was completed later after rounds. Dictation software, Logical Lighting, was used which may contain error for [...] but not limited to potential need for TELLER HEAD . acetaminophen 1,000 mg Oral 3 times [...] who was admitted as a transfer from [facility] due t o a mechanical [...] finding placement and he was accepted by [facility] in [place], [place] for rehabilitation purposes. Hospita l stay was also complicated by episodes of melena, drop in H&H possibly GI bleeding. He was given another 2 units of PRBC transfusions which helped and H&H improved to 9.9. GI service s consulted and Dr. Hernandze performed an EGD. The findings showed reflux [...] but needs rehabilitation, he is accepted by [facility] in [place], [place] with discharge plans early next weeks [...] another 1 to 2 to SNF in [place], [place] if remains stable and improve d. Called his daughter Ms. Huerta and updated her about plans at phone number [phone]. Jerry Chino MD 12/29/2019 Norma Sarabia RN [...] BUNCREARATIO 28 12/28/2019 PTH 72.57 (A) 04/01/2019 [id number] 25.2 (L) 12/27/2019 CALCIUM 8.5 12/28/2019 PHOS [...] been following up with ENEDINA mena in [place]. That seems to be improving with nonoliguric state and small reduction in creatinine. At this time there is no clinical uremia, refractory volume overload, refractory acidosis, refractory hyperkalemia and no urgent indication of starting TELLER HEAD. Neither is there an indication for diagnostic [...] Incentive spirometry. Transfuse Prn. No indication for TELLER HEAD for now. Await renal recovery. I discussed [...] was completed later after rounds. Dictation software, Log[employer] Lighting, was used which may contain error for [...] but not limited to potential need for TELLER HEAD . acetaminophen 1,000 mg Oral 3 times [...] dinner dextrose 10% pantoprazole 8 mg/hr (12/28/19 8749) orter, DALILA Grant - 12/28/2019 10:49 AM PDT [facility] Service: Orthopedic Surgery Progress Note [...] DALILA Peralta has created this entry using [employer]5 e and [employer] macros. The entry has been reviewed and [...] who was admitted as a transfer from [facility] due t o a mechanical [...] finding placement and he was accepted by [facility] in [place], [place] for rehabilitation purposes. Hospita l stay [...] making slow progress, he is accepted by [facility] in [place], [place] with discharge plans possib ly early [...] 1 to 2 to a SNF in [place], [place] when renal functions are st able and cleared by Nephrology services. Also called his daughter Ms. Huerta and updated her a bout plans at phone number [phone]. Jerry Chino MD 12/28/2019 Ghazal Ferrer COTA [...] been following up with ENEDINA mena in [place]. That seems to be improving with nonoliguric state and small reduction in creatinine. At this time there is no clinical uremia, refractory volume overload, refractory acidosis, refractory hyperkalemia and no urgent indication of starting TELLER HEAD. Neither is there an indication for diagnostic [...] Incentive spirometry. Transfuse Prn. No indication for TELLER HEAD for now. Await renal recovery. I discussed [...] care was discussed with Dr. Chino. Alexander Beckofrd MD 12/27/2019 He was seen earlier in the day and charting was completed later after rounds. Dictation software, Logical Lighting, was used which may contain error for [...] but not limited to potential need for TELLER HEAD . acetaminophen 1,000 mg Oral 3 times [...] status. Disposition: Plan to discharge Monday, to Detention Facility, once medically stable a nd cleared [...] Net -400 ml . Treatment plan: per city editor; slowly improving. *Blood pressure: labile; See VS [...] disorder: elevated PTH and phosphorus. Treatment per city editor (see thei r note). Subjective No chest [...] who was admitted as a transfer from [facility] due t o a mechanical [...] Medications Current Facilty-Administered PRN Medications Ordered in [facility] Medication Dose Route Frequency Provider [...] trength and mobility. He is accepted by [facility] in [place], [place] and discharge is delayed due to [...] to 3 days to a SNF in [place], [place] when renal functions a re stable and cleared by Nephrology services. Jerry Chino MD 12/27/2019 Linda Montalvo RN - 12/26/2019 5:09 PM PDT [facility] Service: Wound Care Consult Note [...] who was admitted as a transfer from [facility] due t o a mechanical [...] placement is recommended. 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 Huerta and the at phone number [phone] Code Status: Full Code Regino Greene MD [...] status. Disposition: Plan to discharge Monday, to Detention Facility, once medically stable a nd cleared [...] lab follow-up and treatment per hospitalist and city editor. *Blood pressure: hypotensive; See VS for BP trending. Treatment plan: treatment per hospit alist and city editor *Hospital acquired pneumonia - on IV Zosyn, [...] iron, humalog Anthropometrics Pt reports stable wt well logging captain mud analysis. Current Weight: 63.5 kg (140 lb) Admit [...] Dr. Huerta and the at phone number [phone] Code Status: Full Code Regino Greene MD [...] any conversation with family members today. 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 Code Status: Full Code Regino Greene [...] Visit | | [address] [facility] [address] | | | | | | [address] | | | | | | [address] | | | | | | | | +--------+ + + + + | 02/05/ | Office | Cardiology | Dina Sanchez DO | | | 2019 | Visit | | [address] | | | | | | [place] | | | | | | [address] | | | | | | | [...] | | | | [place], | | | | | | [place] [address] | | | | | | [phone] | | | | | | | | +--------+ + + + + | 03/09/ | Office | Nephrology | Isiah Jade MD | | | 2019 | Visit | | [address] [facility] | | | | | | [address] | | | | | | [address] | | | | | | | [...] + +--------+ + + + | *TERMED* SD UPPER GI | Routin | 12/29/2019 | [...] | + +--------+ + + + | NATHANALE THURSTON, | Routin | 12/22/2019 | | [...] | | | POC | performed at [facility];[address] | | LABORATORY | | | | [address];[place] | | | | | | [address] | | | | + + + + + + + + | Specimen | + + | | + + + + + + + | Performing | Address | City/State/Zipcode | Phone Number | | Organization | | | | + + + + + | [facility] | [address] | [place] [address] | [phone] | + + + + + POC Glucose (01/01/2020 6:29 AM PDT) + + + + + + | Component | Value | Ref Range | Performed | Pathologist | | | | | At | Signature | + + + + + + | Glucose, | 143 (H)Comment: Testing | 65 - 99 mg/dL | [facility] | | | POC | performed at [facility];[address] | | LABORATORY | | | | [address];[place] | | | | | | [address] | | | | + + + + + + + + | Specimen | + + | | + + + + + + + | Performing | Address | City/State/Zipcode | Phone Number | | Organization | | | | + + + + + | [facility] | [address] | [place] [address] | [phone] | + + + + + Basic [...] | | | | | performed at [facility];[address] | | | | | | [address];[place] | | | | | | [address] | | | | + + + + + + + + | Specimen | + + | Blood | + + + + + + + | Performing | Address | City/State/Zipcode | Phone Number | | Organization | | | | + + + + + | [facility] | [address] | [place] [address] | [phone] | + + + + + CBC [...] | | | Absolute | performed at [facility];[address] | K/uL | LABORATORY | | | | [address];[place] | | | | | | [address] | | | | + + + + + + + + | Specimen | + + | Blood | + + + + + + + | Performing | Address | City/State/Zipcode | Phone Number | | Organization | | | | + + + + + | [facility] | [address] | [place] [address] | [phone] | + + + + + POC [...] | | | POC | performed at [facility];[address] | | LABORATORY | | | | [address];[place] | | | | | | [address] | | | | + + + + + + + + | Specimen | + + | | + + + + + + + | Performing | Address | City/State/Zipcode | Phone Number | | Organization | | | | + + + + + | [facility] | [address] [facility] | [place] [address] | [phone] | + + + + + POC [...] | | | POC | performed at [facility];[address] | | LABORATORY | | | | [address];[place], [place] | | | | | | [address] | | | | + + + + + + + + | Specimen | + + | | + + + + + + + | Performing | Address | City/State/Zipcode | Phone Number | | Organization | | | | + + + + + | [facility] | [address] | [place] [address] | [phone] | + + + + + POC Glucose (12/31/2019 12:50 PM PDT) + + + + + + | Component | Value | Ref Range | Performed | Pathologist | | | | | At | Signature | + + + + + + | Glucose, | 239 (H)Comment: Testing | 65 - 99 mg/dL | [facility] | | | POC | performed at [facility];[address] | | LABORATORY | | | | [address];[place] | | | | | | [address] | | | | + + + + + + + + | Specimen | + + | | + + + + + + + | Performing | Address | City/State/Zipcode | Phone Number | | Organization | | | | + + + + + | [facility] | [address] | [place] [address] | [phone] | + + + + + POC Glucose (12/31/2019 6:36 AM PDT) + + + + + + | Component | Value | Ref Range | Performed | Pathologist | | | | | At | Signature | + + + + + + | Glucose, | 154 (H)Comment: Testing | 65 - 99 mg/dL | [facility] | | | POC | performed at [facility];[address] | | LABORATORY | | | | [address];[place], [place] | | | | | | [address] | | | | + + + + + + + + | Specimen | + + | | + + + + + + + | Performing | Address | City/State/Zipcode | Phone Number | | Organization | | | | + + + + + | [facility] | [address] | [place] [address] | [phone] | + + + + + Basic [...] | | | | | performed at [facility], [address] | | | | | | [facility], | | | | | | [place] [address] | | | | + + + + + + + + | Specimen | + + | Blood | + + + + + + + | Performing | Address | City/State/Zipcode | Phone Number | | Organization | | | | + + + + + | [facility] | [address] | [place] [address] | [phone] | + + + + + CBC [...] | | | Absolute | performed at [facility], [address] | K/uL | LABORATORY | | | | [address], | | | | | | [place] [address] | | | | + + + + + + + + | Specimen | + + | Blood | + + + + + + + | Performing | Address | City/State/Zipcode | Phone Number | | Organization | | | | + + + + + | [facility] | [address] | [place] [address] | [phone] | + + + + + POC Glucose (12/30/2019 8:55 PM PDT) + + + + + + | Component | Value | Ref Range | Performed | Pathologist | | | | | At | Signature | + + + + + + | Glucose, | 192 (H)Comment: Testing | 65 - 99 mg/dL | [facility] | | | POC | performed at [facility];[address] | | LABORATORY | | | | [address];[place], [place] | | | | | | [address] | | | | + + + + + + + + | Specimen | + + | | + + + + + + + | Performing | Address | City/State/Zipcode | Phone Number | | Organization | | | | + + + + + | [facility] | [address] | [place] [address] | [phone] | + + + + + POC [...] | | | POC | performed at [facility];[address] | | LABORATORY | | | | [address];[place] | | | | | | [address] | | | | + + + + + + + + | Specimen | + + | | + + + + + + + | Performing | Address | City/State/Zipcode | Phone Number | | Organization | | | | + + + + + | [facility] | [address] | [place] [address] | [phone] | + + + + + POC Glucose (12/30/2019 11:02 AM PDT) + + + + + + | Component | Value | Ref Range | Performed | Pathologist | | | | | At | Signature | + + + + + + | Glucose, | 128 (H)Comment: Testing | 65 - 99 mg/dL | [facility] | | | POC | performed at [facility];[address] | | LABORATORY | | | | [address];[place] | | | | | | [address] | | | | + + + + + + + + | Specimen | + + | | + + + + + + + | Performing | Address | City/State/Zipcode | Phone Number | | Organization | | | | + + + + + | [facility] | [address] | [place] [address] | [phone] | + + + + + Basic [...] | | | | | performed at [facility];[address] | | | | | | [facility];[place], [place] | | | | | | [address] | | | | + + + + + + + + | Specimen | + + | Blood | + + + + + + + | Performing | Address | City/State/Zipcode | Phone Number | | Organization | | | | + + + + + | [facility] | [address] | [place] [address] | [phone] | + + + + + POC [...] | | | POC | performed at [facility];[address] | | LABORATORY | | | | [address];[place], [place] | | | | | | [address] | | | | + + + + + + + + | Specimen | + + | | + + + + + + + | Performing | Address | City/State/Zipcode | Phone Number | | Organization | | | | + + + + + | [facility] | [address] [facility] | [place] [address] | [phone] | + + + + + CBC [...] | | | Absolute | performed at [facility];[address] | K/uL | LABORATORY | | | | [address];[place] | | | | | | [address] | | | | + + + + + + + + | Specimen | + + | Blood | + + + + + + + | Performing | Address | City/State/Zipcode | Phone Number | | Organization | | | | + + + + + | [facility] | [address] | [place] [address] | [phone] | + + + + + POC [...] | | | POC | performed at [facility];[address] | | LABORATORY | | | | [address];[place], [place] | | | | | | [address] | | | | + + + + + + + + | Specimen | + + | | + + + + + + + | Performing | Address | City/State/Zipcode | Phone Number | | Organization | | | | + + + + + | [facility] | [address] [facility] | [place] [address] | [phone] | + + + + + Hemoglobin [...] [facility] | | | | performed at [facility];[address] | | LABORATORY | | | | [facility];[place], [place] | | | | | | [address] | | | | + + + + + + + + | Specimen | + + | Blood | + + + + + + + | Performing | Address | City/State/Zipcode | Phone Number | | Organization | | | | + + + + + | [facility] | [address] | [place] [address] | [phone] | + + + + + POC [...] | | | POC | performed at [facility];[address] | | LABORATORY | | | | [address];[place], [place] | | | | | | [address] | | | | + + + + + + + + | Specimen | + + | | + + + + + + + | Performing | Address | City/State/Zipcode | Phone Number | | Organization | | | | + + + + + | [facility] | [address] [facility] | [place] [address] | [phone] | + + + + + Hemoglobin [...] [facility] | | | | performed at [facility] | | LABORATORY | | | | [facility];[place], [place] | | | | | | [address] | | | | + + + + + + + + | Specimen | + + | Blood | + + + + + + + | Performing | Address | City/State/Zipcode | Phone Number | | Organization | | | | + + + + + | [facility] | [address] | [place] [address] | [phone] | + + + + + POC [...] | | | POC | performed at [facility];[address] | | LABORATORY | | | | [address];[place] | | | | | | [address] | | | | + + + + + + + + | Specimen | + + | | + + + + + + + | Performing | Address | City/State/Zipcode | Phone Number | | Organization | | | | + + + + + | [facility] | [address] | [place] [address] | [phone] | + + + + + POC Glucose (12/29/2019 11:06 AM PDT) + + + + + + | Component | Value | Ref Range | Performed | Pathologist | | | | | At | Signature | + + + + + + | Glucose, | 205 (H)Comment: Testing | 65 - 99 mg/dL | [facility] | | | POC | performed at [facility];[address] | | LABORATORY | | | | [address];[place] | | | | | | [address] | | | | + + + + + + + + | Specimen | + + | | + + + + + + + | Performing | Address | City/State/Zipcode | Phone Number | | Organization | | | | + + + + + | [facility] | [address] | [place] [address] | [phone] | + + + + + Surgical [...] | | technical component was performed by [employer], [address] [place] [address] | | [place] [address] (Hand Candle Dipper: Padmini Sellers MD; CLIA# | | | [id number]). Professional interpretation was performed [facility] | | | [address], | | | [place] [address] (Hand Candle Dipper: Oscar Maynard M.D.; CLIA#: | | | [id number]). Diagnostician: Padmini Sellers | | | MDPathologistElectronically [...] | |The technical component was performed by [employer], [address] [place] [address] (Hand Candle Dipper: Padmini Sellers MD; CLIA# [id number]). Professional interpretation was performed by | | |[employer] [address] (Hand Candle Dipper: Oscar Maynard M.D.; CLIA#: [id number]). | | | | | |Diagnostician: Padmini [...] Performed At | + + + | [facility] | [facility] | | [facility] | PROVATION | | CenterGastroenterology | | | Patient Name: Andres Guzmán | | | Procedure Date: 12/29/2019 8:36 AMMRN: [id number] | | | of : 1930 | [...] the anesthesiologist and the | | | cartography/mapping technician in the pre-procedure area in the [...] | | | with Gold probe 7 Tuvaluan x 5 pulses was successful with | [...] | | | AMNumber of Addenda: 0 [facility] | | | - Check hemoglobin q 6 hours for one day. | | | | | | | | |LAMONT HERNANDEZ MD | | |12/29/2019 10:19:54 AM | | |This report has been signed electronically. | | | | | |Note Initiated On: 12/29/2019 8:36 AM | | |Number of Addenda: 0 | | | | | | [facility] | | + + + [...] ALEX | | | | performed at [facility];[address] | | LABORATORY | | | | [address];[place], [place] | | | | | | [address] | | | | + + + + + + + + | Specimen | + + | Blood | + + + + + + + | Performing | Address | City/State/Zipcode | Phone Number | | Organization | | | | + + + + + | [facility] | [address] | [place] [address] | [phone] | + + + + + POC [...] | | | POC | performed at [facility];[address] | | LABORATORY | | | | [address];[place], [place] | | | | | | [address] | | | | + + + + + + + + | Specimen | + + | | + + + + + + + | Performing | Address | City/State/Zipcode | Phone Number | | Organization | | | | + + + + + | [facility] | [address] | [place] [address] | [phone] | + + + + + CBC [...] 0.02Comment: Testing | 0.00 - 0.10 | [facility] | | | Absolute | performed at [facility];[address] | K/uL | LABORATORY | | | | [address];[place], [place] | | | | | | [address] | | | | + + + + + + + + | Specimen | + + | Blood | + + + + + + + | Performing | Address | City/State/Zipcode | Phone Number | | Organization | | | | + + + + + | [facility] | [address] | [place] [address] | [phone] | + + + + + Protime INR (12/29/2019 3:53 AM PDT) + + + + + + | Component | Value | Ref Range | Performed | Pathologist | | | | | At | Signature | + + + + + + | INR | 1.3Comment: REFERENCE | | [facility] | | | | RANGE:0.9 - 1.2 [...] | | | | | performed at [facility] | | | | | | [facility];[place], [place] | | | | | | [address] | | | | + + + + + + + + | Specimen | + + | Blood | + + + + + + + | Performing | Address | City/State/Zipcode | Phone Number | | Organization | | | | + + + + + | [facility] | [address] | [place] [address] | [phone] | + + + + + Basic [...] | | | | | performed at [facility] | | | | | | [facility];[place], [place] | | | | | | [address] | | | | + + + + + + + + | Specimen | + + | Blood | + + + + + + + | Performing | Address | City/State/Zipcode | Phone Number | | Organization | | | | + + + + + | [facility] | [address] | [place] [address] | [phone] | + + + + + POC [...] | | | POC | performed at [facility];[address] | | LABORATORY | | | | [address];[place] | | | | | | [address] | | | | + + + + + + + + | Specimen | + + | | + + + + + + + | Performing | Address | City/State/Zipcode | Phone Number | | Organization | | | | + + + + + | [facility] | [address] | [place] [address] | [phone] | + + + + + Hemoglobin [...] [facility] | | | | performed at [facility];[address] | | LABORATORY | | | | [address];[place] | | | | | | [address] | | | | + + + + + + + + | Specimen | + + | Blood | + + + + + + + | Performing | Address | City/State/Zipcode | Phone Number | | Organization | | | | + + + + + | [facility] | [address] | [place] [address] | [phone] | + + + + + POC Glucose (12/28/2019 8:47 PM PDT) + + + + + + | Component | Value | Ref Range | Performed | Pathologist | | | | | At | Signature | + + + + + + | Glucose, | 216 (H)Comment: Testing | 65 - 99 mg/dL | [facility] | | | POC | performed at [facility];[address] | | LABORATORY | | | | [address];[place], [place] | | | | | | [address] | | | | + + + + + + + + | Specimen | + + | | + + + + + + + | Performing | Address | City/State/Zipcode | Phone Number | | Organization | | | | + + + + + | [facility] | [address] | [place] [address] | [phone] | + + + + + Fecal [...] | | LABORATORY | | | | [facility];[address];[place] [address] | | | | + + + + + + + + | Specimen | + + | Stool - Stool | | specimen (specimen) | + + + + + + + | Performing | Address | City/State/Zipcode | Phone Number | | Organization | | | | + + + + + | [facility] | [address] | [place] [address] | [phone] | + + + + + POC [...] | | | POC | performed at [facility];[address] | | LABORATORY | | | | [address];[place], [place] | | | | | | [address] | | | | + + + + + + + + | Specimen | + + | | + + + + + + + | Performing | Address | City/State/Zipcode | Phone Number | | Organization | | | | + + + + + | [facility] | [address] | [place] [address] | [phone] | + + + + + Hemoglobin [...] Testing | 39.0 - 50.0 % | [facility] | | | | performed at [facility];[address] | | LABORATORY | | | | [address];[place] | | | | | | [address] | | | | + + + + + + + + | Specimen | + + | Blood | + + + + + + + | Performing | Address | City/State/Zipcode | Phone Number | | Organization | | | | + + + + + | [facility] | [address] | [place] [address] | [phone] | + + + + + POC [...] | | | POC | performed at [facility];[address] | | LABORATORY | | | | [address];[place], [place] | | | | | | [address] | | | | + + + + + + + + | Specimen | + + | | + + + + + + + | Performing | Address | City/State/Zipcode | Phone Number | | Organization | | | | + + + + + | [facility] | [address] | [place] [address] | [phone] | + + + + + POC [...] | | | POC | performed at [facility];[address] | | LABORATORY | | | | [address];[place] | | | | | | [address] | | | | + + + + + + + + | Specimen | + + | | + + + + + + + | Performing | Address | City/State/Zipcode | Phone Number | | Organization | | | | + + + + + | [facility] | [address] | [place] [address] | [phone] | + + + + + CBC [...] | | | Absolute | performed at [facility], [address] | K/uL | LABORATORY | | | | [address], | | | | | | [place] [address] | | | | + + + + + + + + | Specimen | + + | Blood | + + + + + + + | Performing | Address | City/State/Zipcode | Phone Number | | Organization | | | | + + + + + | [facility] | [address] | [place] [address] | [phone] | + + + + + Basic [...] | | | | | | MDRD IDID traceable | | | | | | equation.Testing | | | | | | performed at [facility], [address] | | | | | | [facility], | | | | | | [place] [address] | | | | + + + + + + + + | Specimen | + + | Blood | + + + + + + + | Performing | Address | City/State/Zipcode | Phone Number | | Organization | | | | + + + + + | [facility] | [address] | [place] [address] | [phone] | + + + + + POC [...] | | | POC | performed at [facility];[address] | | LABORATORY | | | | [address];[place] | | | | | | [address] | | | | + + + + + + + + | Specimen | + + | | + + + + + + + | Performing | Address | City/State/Zipcode | Phone Number | | Organization | | | | + + + + + | [facility] | [address] | [place] [address] | [phone] | + + + + + POC Glucose (12/27/2019 3:30 PM PDT) + + + + + + | Component | Value | Ref Range | Performed | Pathologist | | | | | At | Signature | + + + + + + | Glucose, | 156 (H)Comment: Testing | 65 - 99 mg/dL | [facility] | | | POC | performed at [facility];[address] | | LABORATORY | | | | [address];[place] | | | | | | [address] | | | | + + + + + + + + | Specimen | + + | | + + + + + + + | Performing | Address | City/State/Zipcode | Phone Number | | Organization | | | | + + + + + | [facility] | [address] | [place] [address] | [phone] | + + + + + Red [...] | ORDER RECEIVED IN BLOOD | | [facility] | | | COMMENT | BANK. | | LABORATORY | | + + + + + + | BLOOD BANK | Testing performed at | | [facility] | | | COMMENT | [facility];[address] | | LABORATORY | | | | [address];[place] [address] | | | | + + + + + + + + | Specimen | + + | | + + + + + + + | Performing | Address | City/State/Zipcode | Phone Number | | Organization | | | | + + + + + | [facility] | [address] | [place] [address] | [phone] | + + + + + Type [...] + + + | BB BAND | [id number] | | [facility] | | | | | | LABORATORY | | + + + + + + | UNIT # | [id number] | | [facility] | | | | [...] + + + | UNIT # | [id number] | | [facility] | | | | [...] | | | RESULT | performed at [facility] | | LABORATORY | | | | [address];[place], [place] | | | | | | [address] | | | | + + + + + + + + | Specimen | + + | Blood | + + + + + + + | Performing | Address | City/State/Zipcode | Phone Number | | Organization | | | | + + + + + | [facility] | [address] | [place] [address] | [phone] | + + + + + POC Glucose (12/27/2019 7:25 AM PDT) + + + + + + | Component | Value | Ref Range | Performed | Pathologist | | | | | At | Signature | + + + + + + | Glucose, | 186 (H)Comment: Testing | 65 - 99 mg/dL | [facility] | | | POC | performed at [facility];[address] | | LABORATORY | | | | [address];[place] | | | | | | [address] | | | | + + + + + + + + | Specimen | + + | | + + + + + + + | Performing | Address | City/State/Zipcode | Phone Number | | Organization | | | | + + + + + | [facility] | [address] | [place] [address] | [phone] | + + + + + CBC [...] | | | Absolute | performed at [facility], [address] | K/uL | LABORATORY | | | | [facility], | | | | | | [place] [address] | | | | + + + + + + + + | Specimen | + + | | + + + + + + + | Performing | Address | City/State/Zipcode | Phone Number | | Organization | | | | + + + + + | [facility] | [address] [facility] | [place] [address] | [phone] | + + + + + Procalcitonin (12/27/2019 5:04 AM PDT) + + + + + + | Component | Value | Ref Range | Performed | Pathologist | | | | | At | Signature | + + + + + + | PROCALCITON | 0.41Comment: | <0.5 ng/mL | [facility] | | | IN | INTERPRETIVE | [...] | | | | | | at [facility];[address] [place] [address] | | | | | | [facility];[place] [address] | | | | + + + + + + + + | Specimen | + + | Blood | + + + + + + + | Performing | Address | City/State/Zipcode | Phone Number | | Organization | | | | + + + + + | [facility] | [address] | [place] [address] | [phone] | + + + + + Basic [...] 8.1 (L) | 8.5 - 10.5 | [facility] | | | | | mg/dL | LABORATORY | | + + + + + + | Estimated | 13 (L)Comment: GFR <60: | >60 | [facility] | | | GFR | CHRONIC KIDNEY [...] | | | | | | MDRD IDID traceable | | | | | | equation.Testing | | | | | | performed at [facility], [address] | | | | | | [facility], | | | | | | [place] [address] | | | | + + + + + + + + | Specimen | + + | Blood | + + + + + + + | Performing | Address | City/State/Zipcode | Phone Number | | Organization | | | | + + + + + | [facility] | [address] | [place] [address] | [phone] | + + + + + Vitamin [...] | | | | defined by the [place] | | | | | | ofMedicine [...] IOM | | | | | | ([place] of [employer]). | | | | | [...] | | | | | performed at [facility], | | | | | | [address], | | | | | | [facility] [address] | | | | + + + + + + + + | Specimen | + + | Blood | + + + + + + + | Performing | Address | City/State/Zipcode | Phone Number | | Organization | | | | + + + + + | [facility] | [address] | [place] [address] | [phone] | + + + + + Potassium (12/27/2019 12:08 AM PDT) + + + + + + | Component | Value | Ref Range | Performed | Pathologist | | | | | At | Signature | + + + + + + | K | 4.0Comment: Testing | 3.5 - 4.9 | [facility] | | | | performed at [facility];[address] | mmol/L | LABORATORY | | | | [address];[place], [place] | | | | | | [address] | | | | + + + + + + + + | Specimen | + + | Blood | + + + + + + + | Performing | Address | City/State/Zipcode | Phone Number | | Organization | | | | + + + + + | [facility] | [address] [facility] | [place] [address] | [phone] | + + + + + Magnesium (12/27/2019 12:08 AM PDT) + + + + + + | Component | Value | Ref Range | Performed | Pathologist | | | | | At | Signature | + + + + + + | Magnesium | 2.2Comment: Testing | 1.7 - 2.4 mg/dL | [facility] | | | | performed at [facility];[address] | | LABORATORY | | | | [address];[place], [place] | | | | | | [address] | | | | + + + + + + + + | Specimen | + + | Blood | + + + + + + + | Performing | Address | City/State/Zipcode | Phone Number | | Organization | | | | + + + + + | [facility] | [address] | [place] [address] | [phone] | + + + + + ECG [...] Testing | 65 - 99 mg/dL | [facility] | | | POC | performed at [facility];[address] | | LABORATORY | | | | [address];[place], [place] | | | | | | [address] | | | | + + + + + + + + | Specimen | + + | | + + + + + + + | Performing | Address | City/State/Zipcode | Phone Number | | Organization | | | | + + + + + | [facility] | [address] | [place] [address] | [phone] | + + + + + POC [...] | | | POC | performed at [facility];[address] | | LABORATORY | | | | [address];[place] | | | | | | [address] | | | | + + + + + + + + | Specimen | + + | | + + + + + + + | Performing | Address | City/State/Zipcode | Phone Number | | Organization | | | | + + + + + | [facility] | [address] | [place] [address] | [phone] | + + + + + Complement C4 Ag (12/26/2019 12:33 PM PDT) + + + + + + | Component | Value | Ref Range | Performed | Pathologist | | | | | At | Signature | + + + + + + | C4 | 15Comment: Testing | 14 - 44 mg/dL | [facility] | | | COMPLEMENT | performed at [facility], | | LABORATORY | | | | [address], | | | | | | [facility] [address] | | | | + + + + + + + + | Specimen | + + | | + + + + + + + | Performing | Address | City/State/Zipcode | Phone Number | | Organization | | | | + + + + + | [facility] | [address] | [place] [address] | [phone] | + + + + + Complement C3 Ag (12/26/2019 12:33 PM PDT) + + + + + + | Component | Value | Ref Range | Performed | Pathologist | | | | | At | Signature | + + + + + + | C3 | 53 (L)Comment: Testing | 82 - 167 mg/dL | [facility] | | | COMPLEMENT | performed at [facility], | | LABORATORY | | | | [address], | | | | | | [facility] [address] | | | | + + + + + + + + | Specimen | + + | | + + + + + + + | Performing | Address | City/State/Zipcode | Phone Number | | Organization | | | | + + + + + | [facility] | [address] | [place] [address] | [phone] | + + + + + POC [...] | | | POC | performed at [facility];[address] | | LABORATORY | | | | [address];[place], [place] | | | | | | [address] | | | | + + + + + + + + | Specimen | + + | | + + + + + + + | Performing | Address | City/State/Zipcode | Phone Number | | Organization | | | | + + + + + | [facility] | [address] | [place] [address] | [phone] | + + + + + POC [...] | | | POC | performed at [facility];[address] | | LABORATORY | | | | [address];[place] | | | | | | [address] | | | | + + + + + + + + | Specimen | + + | | + + + + + + + | Performing | Address | City/State/Zipcode | Phone Number | | Organization | | | | + + + + + | [facility] | [address] | [place] [address] | [phone] | + + + + + Parathyroid Hormone, Intraoperative (12/26/2019 4:25 AM PDT) + + + + + + | Component | Value | Ref Range | Performed | Pathologist | | | | | At | Signature | + + + + + + | PTH Intact | 167.0 (H)Comment: | 8.7 - 79.6 | [facility] | | | | Testing performed at | pg/mL | LABORATORY | | | | [facility];[address];[place] [address] | | | | + + + + + + + + | Specimen | + + | | + + + + + + + | Performing | Address | City/State/Zipcode | Phone Number | | Organization | | | | + + + + + | [facility] | [address] | [place] [address] | [phone] | + + + + + Renal [...] 13 (L)Comment: GFR <60: | >60 | [facility] | | | GFR | CHRONIC KIDNEY [...] | | | | | | MDRD IDID traceable | | | | | | equation.Testing | | | | | | performed at [facility], [address] | | | | | | [facility], | | | | | | [place] [address] | | | | + + + + + + + + | Specimen | + + | Blood | + + + + + + + | Performing | Address | City/State/Zipcode | Phone Number | | Organization | | | | + + + + + | [facility] | [address] | [place] [address] | [phone] | + + + + + POC Glucose (12/25/2019 8:53 PM PDT) + + + + + + | Component | Value | Ref Range | Performed | Pathologist | | | | | At | Signature | + + + + + + | Glucose, | 169 (H)Comment: Testing | 65 - 99 mg/dL | [facility] | | | POC | performed at [facility];[address] | | LABORATORY | | | | [address];[place], [place] | | | | | | [address] | | | | + + + + + + + + | Specimen | + + | | + + + + + + + | Performing | Address | City/State/Zipcode | Phone Number | | Organization | | | | + + + + + | [facility] | [address] | [place] [address] | [phone] | + + + + + POC Glucose (12/25/2019 5:13 PM PDT) + + + + + + | Component | Value | Ref Range | Performed | Pathologist | | | | | At | Signature | + + + + + + | Glucose, | 133 (H)Comment: Testing | 65 - 99 mg/dL | [facility] | | | POC | performed at [facility];[address] | | LABORATORY | | | | [address];[place], [place] | | | | | | [address] | | | | + + + + + + + + | Specimen | + + | | + + + + + + + | Performing | Address | City/State/Zipcode | Phone Number | | Organization | | | | + + + + + | [facility] | [address] | [place] [address] | [phone] | + + + + + ECHO [...] | | | POC | performed at [facility];[address] | | LABORATORY | | | | [address];[place] | | | | | | [address] | | | | + + + + + + + + | Specimen | + + | | + + + + + + + | Performing | Address | City/State/Zipcode | Phone Number | | Organization | | | | + + + + + | [facility] | [address] | [place] [address] | [phone] | + + + + + POC Glucose (12/25/2019 7:56 AM PDT) + + + + + + | Component | Value | Ref Range | Performed | Pathologist | | | | | At | Signature | + + + + + + | Glucose, | 136 (H)Comment: Testing | 65 - 99 mg/dL | [facility] | | | POC | performed at [facility];[address] | | LABORATORY | | | | [address];[place] | | | | | | [address] | | | | + + + + + + + + | Specimen | + + | | + + + + + + + | Performing | Address | City/State/Zipcode | Phone Number | | Organization | | | | + + + + + | [facility] | [address] | [place] [address] | [phone] | + + + + + CK Total (12/25/2019 4:25 AM PDT) + + + + + + | Component | Value | Ref Range | Performed | Pathologist | | | | | At | Signature | + + + + + + | CK TOTAL | 104Comment: Testing | 55 - 400 U/L | [facility] | | | | performed at [facility];[address] | | LABORATORY | | | | [address];[place] | | | | | | [address] | | | | + + + + + + + + | Specimen | + + | Blood | + + + + + + + | Performing | Address | City/State/Zipcode | Phone Number | | Organization | | | | + + + + + | [facility] | [address] | [place] [address] | [phone] | + + + + + Renal [...] 13 (L)Comment: GFR <60: | >60 | [facility] | | | GFR | CHRONIC KIDNEY [...] | | | | | performed at [facility], [address] | | | | | [address], | | | | | | [place] [address] | | | | + + + + + + + + | Specimen | + + | Blood | + + + + + + + | Performing | Address | City/State/Zipcode | Phone Number | | Organization | | | | + + + + + | [facility] | [address] | [place] [address] | [phone] | + + + + + Cytoplasmic [...] | | | | | with both SD-3 and | | | | | | [...] | <1:20Comment: The | Neg:<1:20 titer | [facility] | | | pANCA | atypical pANCA [...] | | | | | performed by [email or web address], | | | | | | [address], | | | | | | [facility] [address] | | | | + + + + + + + + | Specimen | + + | Blood | + + + + + + + | Performing | Address | City/State/Zipcode | Phone Number | | Organization | | | | + + + + + | [facility] | [address] | [place] [address] | [phone] | + + + + + Sedimentation Rate (12/25/2019 4:22 AM PDT) + + + + + + | Component | Value | Ref Range | Performed | Pathologist | | | | | At | Signature | + + + + + + | ESR | 6Comment: Testing | 0 - 20 mm/Hr | KR | | | | performed at [facility], [address] | | LABORATORY | | | | [address], | | | | | | [place] [address] | | | | + + + + + + + + | Specimen | + + | Blood | + + + + + + + | Performing | Address | City/State/Zipcode | Phone Number | | Organization | | | | + + + + + | [facility] | [address] | [place] [address] | [phone] | + + + + + Immunoglobulin, Free Light Chain (12/25/2019 4:22 AM PDT) + + + + + + | Component | Value | Ref Range | Performed | Pathologist | | | | | At | Signature | + + + + + + | [place] [facility] | 121.2 (H) | 3.3 - [...] + + + + + + | [place] | 1.25Comment: Testing | 0.26 - 1.65 | [facility] | | | a Free | performed at [facility] | | LABORATORY | | | Light Chain | [place], [address] | | | | | Ratio | [place] [phone] | | | | + + + + + + + + | Specimen | + + | Blood | + + + + + + + | Performing | Address | City/State/Zipcode | Phone Number | | Organization | | | | + + + + + | [facility] | [address] | [place] [address] | [phone] | + + + + + Glomerular [...] by | | | | | | [facility], [address] | | | | | | [place] | | | | | | [address] | | | | + + + + + + + + | Specimen | + + | Blood | + + + + + + + | Performing | Address | City/State/Zipcode | Phone Number | | Organization | | | | + + + + + | [facility] | [address] | [place] [address] | [phone] | + + + + + Hepatitis [...] <0.1Comment: | 0.0 - 0.9 s/co | [facility] | | | | | ratio | [...] | | | | | | 0.9The [facility] recommends | | | | | | that a positive HCV | | | | | | antibody resultbe | | | | | | followed up with a HCV | | | | | | Nucleic Acid | | | | | | Amplificationtest | | | | | | ([id number]).Testing | | | | | | performed at [facility], | | | | | | [address], [facility] [address], | | | | | | [facility] [address] | | | | + + + + + + + + | Specimen | + + | Blood | + + + + + + + | Performing | Address | City/State/Zipcode | Phone Number | | Organization | | | | + + + + + | [facility] | [address] | [place] [address] | [phone] | + + + + + CK Total (12/25/2019 4:22 AM PDT) + + + + + + | Component | Value | Ref Range | Performed | Pathologist | | | | | At | Signature | + + + + + + | CK TOTAL | 100Comment: Testing | 55 - 400 U/L | [facility] | | | | performed at [facility];[address] | | LABORATORY | | | | [address];[place] | | | | | | [address] | | | | + + + + + + + + | Specimen | + + | Blood | + + + + + + + | Performing | Address | City/State/Zipcode | Phone Number | | Organization | | | | + + + + + | [facility] | [address] | [place] [address] | [phone] | + + + + + Lactate Dehydrogenase (12/25/2019 4:22 AM PDT) + + + + + + | Component | Value | Ref Range | Performed | Pathologist | | | | | At | Signature | + + + + + + | LDH TOTAL | 154Comment: Testing | 120 - 246 U/L | [facility] | | | | performed at [facility];[address] | | LABORATORY | | | | [address];[place], [place] | | | | | | [address] | | | | + + + + + + + + | Specimen | + + | Blood | + + + + + + + | Performing | Address | City/State/Zipcode | Phone Number | | Organization | | | | + + + + + | [facility] | [address] | [place] [address] | [phone] | + + + + + Magnesium (12/25/2019 4:22 AM PDT) + + + + + + | Component | Value | Ref Range | Performed | Pathologist | | | | | At | Signature | + + + + + + | Magnesium | 2.5 (H)Comment: Testing | 1.7 - 2.4 mg/dL | [facility] | | | | performed at [facility], [address] | | LABORATORY | | | | [address], | | | | | | [place] [address] | | | | + + + + + + + + | Specimen | + + | Blood | + + + + + + + | Performing | Address | City/State/Zipcode | Phone Number | | Organization | | | | + + + + + | [facility] | [address] | [place] [address] | [phone] | + + + + + Protein, Urine, Random (12/25/2019 12:01 AM PDT) + + + + + + | Component | Value | Ref Range | Performed | Pathologist | | | | | At | Signature | + + + + + + | Protein, | 131Comment: NO NORMAL | mg/dL | [facility] | | | Urine | [facility] ESTABLISHEDTesting | | LABORATORY | | | | performed at [facility], [address] | | | | | [address], | | | | | | [place] [address] | | | | + + + + + + + + | Specimen | + + | | + + + + + + + | Performing | Address | City/State/Zipcode | Phone Number | | Organization | | | | + + + + + | [facility] | [address] | [place] [address] | [phone] | + + + + + Creatinine, Urine, Random (12/25/2019 12:01 AM PDT) + + + + + + | Component | Value | Ref Range | Performed | Pathologist | | | | | At | Signature | + + + + + + | Creatinine, | 139.0Comment: NO NORMAL | mg/dL | [facility] | | | random | [facility] ESTABLISHEDTesting | | LABORATORY | | | urine | performed at [facility], [address] | | | | | | [address], | | | | | | [place] [address] | | | | + + + + + + + + | Specimen | + + | | + + + + + + + | Performing | Address | City/State/Zipcode | Phone Number | | Organization | | | | + + + + + | [facility] | [address] | [place] [address] | [phone] | + + + + + Protein/Creatinine Ratio, Urine (12/25/2019 12:01 AM PDT) + + + + + + | Component | Value | Ref Range | Performed | Pathologist | | | | | At | Signature | + + + + + + | PRO/CREA | 0.942Comment: Testing | | [facility] | | | RATIO,URINE | performed at [facility], [address] | | LABORATORY | | | | [address], | | | | | | [place] [address] | | | | + + + + + + + + | Specimen | + + | Urine | + + + + + + + | Performing | Address | City/State/Zipcode | Phone Number | | Organization | | | | + + + + + | [facility] | [address] | [place] [address] | [phone] | + + + + + POC [...] | | | POC | performed at [facility];[address] | | LABORATORY | | | | [address];[place], [place] | | | | | | [address] | | | | + + + + + + + + | Specimen | + + | | + + + + + + + | Performing | Address | City/State/Zipcode | Phone Number | | Organization | | | | + + + + + | [facility] | [address] [facility] | [place] [address] | [phone] | + + + + + POC [...] | | | POC | performed at [facility];[address] | | LABORATORY | | | | [address];[place], [place] | | | | | | [address] | | | | + + + + + + + + | Specimen | + + | | + + + + + + + | Performing | Address | City/State/Zipcode | Phone Number | | Organization | | | | + + + + + | [facility] | [address] | [place] [address] | [phone] | + + + + + ECG [...] | | | Arterial, | performed at [facility];[address] | | LABORATORY | | | POC | [address];[place], [place] | | | | | | [address] | | | | + + + + + + + + | Specimen | + + | | + + + + + + + | Performing | Address | City/State/Zipcode | Phone Number | | Organization | | | | + + + + + | [facility] | [address] | [place] [address] | [phone] | + + + + + Coronavirus (COVID-19) NAAT (12/24/2019 1:10 PM PDT) + + + + + + | Component | Value | Ref Range | Performed | Pathologist | | | | | At | Signature | + + + + + + | SARS-CoV-2, | NEGATIVEComment: Testing | NEG | [facility] | | | YOU | performed at [facility];[address] | | LABORATORY | | | (COVID-19) | [address];[place], [place] | | | | | | [address] | | | | + + + [...] [facility] | [address] | [place] [address] | [phone] | + + + + + Culture, [...] | | LABORATORY | | | | Blvd;[place] [address] | | | | + + + + + + | RESULT | NO GROWTH 6 DAYS | | [facility] | | | | | | LABORATORY | | + + + + + + | RESULT | Testing performed at | | [facility] | | | | TCL, [address] [facility] | | LABORATORY | | | | [place] | | | | | | [address]Mwbdfxo: Testing | | | | | | performed at [facility], [address] | | | | | | [facility] [address] [place], [place] | | | | | | [address] | | | | + + + + + + + + | Specimen | + + | Blood - Peripheral | | blood specimen | | (specimen) | + + + + + + + | Performing | Address | City/State/Zipcode | Phone Number | | Organization | | | | + + + + + | [facility] | [address] | [place] [address] | [phone] | + + + + + Culture, [...] Special | Testing performed at | | [facility] | | | Requests | [address] [facility] | | LABORATORY | | | | [address];[place] [address] | | | | + + + + + + | RESULT | NO GROWTH 6 DAYS | | [facility] | | | | | | LABORATORY | | + + + + + + | RESULT | Testing performed at | | [facility] | | | | TCL, [address] [facility] | | LABORATORY | | | | [address], [place] | | | | | | [id number]: Testing | | | | | | performed at [facility], [address] | | | | | | [address], [place] | | | | | | [address] | | | | + + + + + + + + | Specimen | + + | Blood - Peripheral | | blood specimen | | (specimen) | + + + + + + + | Performing | Address | City/State/Zipcode | Phone Number | | Organization | | | | + + + + + | [facility] | [address] | [place] [address] | [phone] | + + + + + Urinalysis [...] - 1.030 | [facility] | | | [place], | | | LABORATORY | | | [...] | | | Urine | performed at [facility], [address] | | LABORATORY | | | | [address], | | | | | | [place] [address] | | | | + + + [...] | + + + + + | [facility] | [address] | [place] [address] | [phone] | + + + + + Sodium, Urine, Random (12/24/2019 12:45 PM PDT) + + + + + + | Component | Value | Ref Range | Performed | Pathologist | | | | | At | Signature | + + + + + + | Sodium, | 52Comment: NO NORMAL | mmol/L | [facility] | | | Random | [facility] ESTABLISHEDTesting | | LABORATORY | | | urine | performed at [facility], [address] | | | | | | [address], | | | | | | [place] [address] | | | | + + + [...] | + + + + + | [facility] | [address] | [place] [address] | [phone] | + + + + + Creatinine, [...] | | | urine | performed at [facility], [address] | | | | | | [address], | | | | | | [place] [address] | | | | + + + [...] | + + + + + | [facility] | [address] | [place] [address] | [phone] | + + + + + Lactic Acid (12/24/2019 12:27 PM PDT) + + + + + + | Component | Value | Ref Range | Performed | Pathologist | | | | | At | Signature | + + + + + + | Lactate, | 1.6Comment: Testing | 0.4 - 2.0 | [facility] | | | Serum | performed at [facility];[address] | mmol/L | LABORATORY | | | | [address];[place], [place] | | | | | | [address] | | | | + + + + + + + + | Specimen | + + | Blood | + + + + + + + | Performing | Address | City/State/Zipcode | Phone Number | | Organization | | | | + + + + + | [facility] | [address] | [place] [address] | [phone] | + + + + + Procalcitonin [...] | | | | | | at [facility];[address] | | | | | | [address];[place] [address] | | | | + + + + + + + + | Specimen | + + | Blood | + + + + + + + | Performing | Address | City/State/Zipcode | Phone Number | | Organization | | | | + + + + + | [facility] | [address] | [place] [address] | [phone] | + + + + + POC [...] | | | POC | performed at [facility];[address] | | LABORATORY | | | | [address];[place], [place] | | | | | | [address] | | | | + + + + + + + + | Specimen | + + | | + + + + + + + | Performing | Address | City/State/Zipcode | Phone Number | | Organization | | | | + + + + + | [facility] | [address] | [place] [address] | [phone] | + + + + + POC [...] | | | POC | performed at [facility];[address] | | LABORATORY | | | | [address];[place] | | | | | | [address] | | | | + + + + + + + + | Specimen | + + | | + + + + + + + | Performing | Address | City/State/Zipcode | Phone Number | | Organization | | | | + + + + + | [facility] | [address] | [place] [address] | [phone] | + + + + + CBC [...] LABORATORY | | | | performed at [facility];[address] | | | | | | [address];[place] | | | | | | [address] | | | | + + + + + + + + | Specimen | + + | Blood | + + + + + + + | Performing | Address | City/State/Zipcode | Phone Number | | Organization | | | | + + + + + | [facility] | [address] | [place] [address] | [phone] | + + + + + Basic [...] | | | | | performed at [facility], [address] | | | | | | [facility], | | | | | | [place] [address] | | | | + + + + + + + + | Specimen | + + | Blood | + + + + + + + | Performing | Address | City/State/Zipcode | Phone Number | | Organization | | | | + + + + + | [facility] | [address] | [place] [address] | [phone] | + + + + + POC [...] | | | POC | performed at [facility];[address] | | LABORATORY | | | | [address];[place], [place] | | | | | | [address] | | | | + + + + + + + + | Specimen | + + | | + + + + + + + | Performing | Address | City/State/Zipcode | Phone Number | | Organization | | | | + + + + + | [facility] | [address] | [place] [address] | [phone] | + + + + + POC [...] | | | POC | performed at [facility];[address] | | LABORATORY | | | | [address];[place] | | | | | | [address] | | | | + + + + + + + + | Specimen | + + | | + + + + + + + | Performing | Address | City/State/Zipcode | Phone Number | | Organization | | | | + + + + + | [facility] | [address] | [place] [address] | [phone] | + + + + + POC Glucose (12/23/2019 2:05 PM PDT) + + + + + + | Component | Value | Ref Range | Performed | Pathologist | | | | | At | Signature | + + + + + + | Glucose, | 158 (H)Comment: Testing | 65 - 99 mg/dL | [facility] | | | POC | performed at [facility];[address] | | LABORATORY | | | | [address];[place] | | | | | | [address] | | | | + + + + + + + + | Specimen | + + | | + + + + + + + | Performing | Address | City/State/Zipcode | Phone Number | | Organization | | | | + + + + + | [facility] | [address] [facility] | [place] [address] | [phone] | + + + + + POC Glucose (12/23/2019 7:21 AM PDT) + + + + + + | Component | Value | Ref Range | Performed | Pathologist | | | | | At | Signature | + + + + + + | Glucose, | 122 (H)Comment: Testing | 65 - 99 mg/dL | [facility] | | | POC | performed at [facility];[address] | | LABORATORY | | | | [address];[place] | | | | | | [address] | | | | + + + + + + + + | Specimen | + + | | + + + + + + + | Performing | Address | City/State/Zipcode | Phone Number | | Organization | | | | + + + + + | [facility] | [address] | [place] [address] | [phone] | + + + + + Basic [...] | | | | | performed at [facility];[address] | | | | | | [facility];[place], [place] | | | | | | [address] | | | | + + + + + + + + | Specimen | + + | Blood | + + + + + + + | Performing | Address | City/State/Zipcode | Phone Number | | Organization | | | | + + + + + | [facility] | [address] | [place] [address] | [phone] | + + + + + Phosphorus (12/23/2019 4:04 AM PDT) + + + + + + | Component | Value | Ref Range | Performed | Pathologist | | | | | At | Signature | + + + + + + | Phosphorus | 4.6Comment: Testing | 2.3 - 4.8 mg/dL | [facility] | | | | performed at [facility];[address] | | LABORATORY | | | | [address];[place] | | | | | | [address] | | | | + + + + + + + + | Specimen | + + | Blood | + + + + + + + | Performing | Address | City/State/Zipcode | Phone Number | | Organization | | | | + + + + + | [facility] | [address] | [place] [address] | [phone] | + + + + + Magnesium (12/23/2019 4:04 AM PDT) + + + + + + | Component | Value | Ref Range | Performed | Pathologist | | | | | At | Signature | + + + + + + | Magnesium | 2.1Comment: Testing | 1.7 - 2.4 mg/dL | [facility] | | | | performed at [facility];[address] | | LABORATORY | | | | [address];[place] | | | | | | [address] | | | | + + + + + + + + | Specimen | + + | Blood | + + + + + + + | Performing | Address | City/State/Zipcode | Phone Number | | Organization | | | | + + + + + | [facility] | [address] | [place] [address] | [phone] | + + + + + CBC [...] LABORATORY | | | | performed at [facility];[address] | | | | | | [address];[place] | | | | | | [address] | | | | + + + + + + + + | Specimen | + + | Blood | + + + + + + + | Performing | Address | City/State/Zipcode | Phone Number | | Organization | | | | + + + + + | [facility] | [address] | [place] [address] | [phone] | + + + + + Hemoglobin (12/22/2019 9:37 PM PDT) + + + + + + | Component | Value | Ref Range | Performed | Pathologist | | | | | At | Signature | + + + + + + | Hemoglobin | 9.1 (L)Comment: Testing | 13.2 - 17.0 | [facility] | | | | performed at [facility];[address] | g/dL | LABORATORY | | | | [address];[place] | | | | | | [address] | | | | + + + + + + + + | Specimen | + + | Blood | + + + + + + + | Performing | Address | City/State/Zipcode | Phone Number | | Organization | | | | + + + + + | [facility] | [address] | [place] [address] | [phone] | + + + + + Hematocrit (12/22/2019 9:37 PM PDT) + + + + + + | Component | Value | Ref Range | Performed | Pathologist | | | | | At | Signature | + + + + + + | Hematocrit | 27.4 (L)Comment: Testing | 39.0 - 50.0 % | [facility] | | | | performed at [facility];[address] | | LABORATORY | | | | [address];[place] | | | | | | [address] | | | | + + + + + + + + | Specimen | + + | Blood | + + + + + + + | Performing | Address | City/State/Zipcode | Phone Number | | Organization | | | | + + + + + | [facility] | [address] | [place] [address] | [phone] | + + + + + POC Glucose (12/22/2019 8:30 PM PDT) + + + + + + | Component | Value | Ref Range | Performed | Pathologist | | | | | At | Signature | + + + + + + | Glucose, | 129 (H)Comment: Testing | 65 - 99 mg/dL | [facility] | | | POC | performed at [facility];[address] | | LABORATORY | | | | [address];[place] | | | | | | [address] | | | | + + + + + + + + | Specimen | + + | | + + + + + + + | Performing | Address | City/State/Zipcode | Phone Number | | Organization | | | | + + + + + | [facility] | [address] | [place] [address] | [phone] | + + + + + POC Glucose (12/22/2019 5:32 PM PDT) + + + + + + | Component | Value | Ref Range | Performed | Pathologist | | | | | At | Signature | + + + + + + | Glucose, | 153 (H)Comment: Testing | 65 - 99 mg/dL | [facility] | | | POC | performed at [facility];[address] | | LABORATORY | | | | [address];[place] | | | | | | [address] | | | | + + + + + + + + | Specimen | + + | | + + + + + + + | Performing | Address | City/State/Zipcode | Phone Number | | Organization | | | | + + + + + | [facility] | [address] | [place] [address] | [phone] | + + + + + Red [...] BANK | Testing performed at | | [facility] | | | COMMENT | [facility];[address] | | LABORATORY | | | | [address];[place] [address] | | | | + + + + + + + + | Specimen | + + | | + + + + + + + | Performing | Address | City/State/Zipcode | Phone Number | | Organization | | | | + + + + + | [facility] | [address] | [place] [address] | [phone] | + + + + + POC [...] | | | POC | performed at [facility];[address] | | LABORATORY | | | | [address];[place], [place] | | | | | | [address] | | | | + + + + + + + + | Specimen | + + | | + + + + + + + | Performing | Address | City/State/Zipcode | Phone Number | | Organization | | | | + + + + + | [facility] | [address] | [place] [address] | [phone] | + + + + + NATHALIA [...] | | | POC | performed at [facility];[address] | g/dL | LABORATORY | | | | [address];[place] | | | | | | [address] | | | | + + + + + + + + | Specimen | + + | | + + + + + + + | Performing | Address | City/State/Zipcode | Phone Number | | Organization | | | | + + + + + | [facility] | [address] | [place] [address] | [phone] | + + + + + POC [...] | | | POC | performed at [facility];[address] | g/dL | LABORATORY | | | | [address];[place], [place] | | | | | | [address] | | | | + + + + + + + + | Specimen | + + | | + + + + + + + | Performing | Address | City/State/Zipcode | Phone Number | | Organization | | | | + + + + + | [facility] | [address] | [place] [address] | [phone] | + + + + + NATHANAEL [...] | | | POC | performed at [facility];[address] | g/dL | LABORATORY | | | | [address];[place], [place] | | | | | | [address] | | | | + + + + + + + + | Specimen | + + | | + + + + + + + | Performing | Address | City/State/Zipcode | Phone Number | | Organization | | | | + + + + + | [facility] | [address] | [place] [address] | [phone] | + + + + + POC [...] | | | POC | performed at [facility];[address] | g/dL | LABORATORY | | | | [address];[place], [place] | | | | | | [address] | | | | + + + + + + + + | Specimen | + + | | + + + + + + + | Performing | Address | City/State/Zipcode | Phone Number | | Organization | | | | + + + + + | [facility] | [address] | [place] [address] | [phone] | + + + + + Type [...] + + + | BB BAND | [id number] | | [facility] | | | | | | LABORATORY | | + + + + + + | UNIT # | [id number] | | [facility] | | | | [...] | | | RESULT | performed at [facility] | | LABORATORY | | | | [address];[place], [place] | | | | | | [address] | | | | + + + + + + | UNIT # | [id number] | | [facility] | | | | [...] | + + + + + | [facility] | [address] | [place] [address] | [phone] | + + + + + POC [...] | | | POC | performed at [facility];[address] | | LABORATORY | | | | [address]alia Mccain;[place], [place] | | | | | | [address] | | | | + + + + + + + + | Specimen | + + | | + + + + + + + | Performing | Address | City/State/Zipcode | Phone Number | | Organization | | | | + + + + + | [facility] | [address] | [place] [address] | [phone] | + + + + + Tabbyime [...] | | | | | performed at [facility];[address] | | | | | | [address]alia Ayala;[place], [place] | | | | | | [address] | | | | + + + + + + + + | Specimen | + + | Blood | + + + + + + + | Performing | Address | City/State/Zipcode | Phone Number | | Organization | | | | + + + + + | [facility] | [address] | [place] [address] | [phone] | + + + + + CBC [...] 0.02Comment: Testing | 0.00 - 0.10 | [facility] | | | Absolute | performed at [facility], [address] | LABORATORY | | | | [address], | | | | | | [place] [address] | | | | + + + + + + + + | Specimen | + + | Blood | + + + + + + + | Performing | Address | City/State/Zipcode | Phone Number | | Organization | | | | + + + + + | [facility] | [address] | [place] [address] | [phone] | + + + + + Magnesium (12/22/2019 5:26 AM PDT) + + + + + + | Component | Value | Ref Range | Performed | Pathologist | | | | | At | Signature | + + + + + + | Magnesium | 2.6 (H)Comment: Testing | 1.7 - 2.4 mg/dL | ALEX | | | | performed at [facility], [address] | | LABORATORY | | | | [address], | | | | | | [place] [address] | | | | + + + + + + + + | Specimen | + + | Blood | + + + + + + + | Performing | Address | City/State/Zipcode | Phone Number | | Organization | | | | + + + + + | [facility] | [address] | [place] [address] | [phone] | + + + + + Basic [...] 22 (L)Comment: GFR <60: | >60 | [facility] | | | GFR | CHRONIC KIDNEY [...] | | | | | performed at [facility], [address] | | | | | | [facility], | | | | | | [place] [address] | | | | + + + + + + + + | Specimen | + + | Blood | + + + + + + + | Performing | Address | City/State/Zipcode | Phone Number | | Organization | | | | + + + + + | [facility] | [address] | [place] [address] | [phone] | + + + + + POC [...] | | | POC | performed at [facility];[address] | | LABORATORY | | | | [address];[place] | | | | | | [address] | | | | + + + + + + + + | Specimen | + + | | + + + + + + + | Performing | Address | City/State/Zipcode | Phone Number | | Organization | | | | + + + + + | [facility] | [address] | [place] [address] | [phone] | + + + + + POC Glucose (12/21/2019 9:11 PM PDT) + + + + + + | Component | Value | Ref Range | Performed | Pathologist | | | | | At | Signature | + + + + + + | Glucose, | 182 (H)Comment: Testing | 65 - 99 mg/dL | [facility] | | | POC | performed at [facility];[address] | | LABORATORY | | | | [address];[place] | | | | | | [address] | | | | + + + + + + + + | Specimen | + + | | + + + + + + + | Performing | Address | City/State/Zipcode | Phone Number | | Organization | | | | + + + + + | [facility] | [address] | [place] [address] | [phone] | + + + + + documented [...] | | | | | | Starting [facility] 12/26/19 at 1637 | | | [...] | | | | | | | 1834-3312 Use NIGHT DOSE for | | | | | | | doses scheduled: HS, | | | | | | | Nighttime [id number] If the BG is | | | [...]
--- OUTSIDE RECORDS SUMMARY | ~2020-01-27 | XMS | Encounter Summary ---
Demographics + + + | Address | [address] | | | [place] [address] | + + + | Home Phone | | + + + | Preferred Language | Unknown | + + + | Marital Status | | + + + | Episcopal Affiliation | 1001 | + + + | Race | Unknown | + + + | Ethnic Group | Unknown | + + + Author + + + | Author | [facility] | | | and [place] | + + + | Organization | [facility] | | | [...] [place] | | | | | [address] | | + + + + + | Deanna Lawson | ECON | Unknown | | + + + + + Care Team Providers + +------+ + | Care Legend Maker Name | Role | Phone | [...] + + | 12/21/ | Surgery | [facility] | eMlquiades Baez | NAILING IM BETSY FEMUR | | 2019 | [facility] | DO [address] | - GAMMA NAIL | | | | OPERATING ROOM [address] | [address] [facility], | | | | | [address] | [place] [address] | | | | | [place], [place] | [phone] | | | | | [address] | | | | | | [phone] | | | +--------+---------+ + + + [...] was on board. No immediate indication for PROGRAM OR PROJECT ADMINISTRATOR. Patient was also seen by physical therapy and occupational therapy and was recommended for discharging to SNF. However patient will b e going to [facility] at this time. Patient also had [...] CVA tenderness, no spinal tenderness Disposition: [facility] Condition: Fair No discharge procedures [...] BUNCREARATIO 30 01/01/2020 PTH 72.57 (A) 04/01/2019 [id number] 25.2 (L) 12/27/2019 CALCIUM 8.6 01/01/2020 PHOS [...] been following up with [facility] mena in [place]. He has unrecovered acute kidney injury and a higher baseline creatinine. At this time there is no clinical uremia, refractory volume overload, refractory acidosis, refractory hyperkalemia and no urgent indication of starting PROGRAM OR PROJECT ADMINISTRATOR. Neither is there an indication for diagnostic [...] Incentive spirometry. Transfuse Prn. No indication for PROGRAM OR PROJECT ADMINISTRATOR for now. Await renal recovery. On discharge [...] was completed later after rounds. Dictation software, [facility], was used which may contain error for [...] but not limited to potential need for PROGRAM OR PROJECT ADMINISTRATOR . This is a patient with multiple [...] is waiting downstairs. Deanna Doe RN, CMSRN, [facility] Inpatient Wound Ostomy Care [phone] 01/01/2020 11:46 AM Chai, Savana Irving RN [...] BUNCREARATIO 25 12/31/2019 PTH 72.57 (A) 04/01/2019 [id number] 25.2 (L) 12/27/2019 CALCIUM 8.5 12/31/2019 PHOS [...] been following up with EN[facility] mena in [place]. He has unrecovered acute kidney injury and a higher baseline creatinine. At this time there is no clinical uremia, refractory volume overload, refractory acidosis, refractory hyperkalemia and no urgent indication of starting PROGRAM OR PROJECT ADMINISTRATOR. Neither is there an indication for diagnostic [...] Incentive spirometry. Transfuse Prn. No indication for PROGRAM OR PROJECT ADMINISTRATOR for now. Await renal recovery. I discussed [...] was completed later after rounds. Dictation software, [facility], was used which may contain error for [...] but not limited to potential need for PROGRAM OR PROJECT ADMINISTRATOR . This is a patient with multiple [...] Greene MD 12/31/2019 11:38 AM [facility] - 12/31/2019 10:58 AM PDT . ORTHOPEDIC [...] injuries: see wound RN note for treatment. [facility] ed, continue wound care at swing bed, send with extra dressing supplies. *Metabolic bone disorder: elevated PTH and phosphorus. Treatment per gate services supervisor (see thei r note). Subjective No chest [...] who was admitted as a transfer from [facility] due t o a mechanical [...] placement and he was accepted by [facility] in [place], [place] for rehabilitation purposes. Hospital stay was [...] Medications Current Facilty-Administered PRN Medications Ordered in [facility] Medication Dose Route Frequency Provider [...] but remains week, he is accepted at [facility] in [place] with discharge plans tomorrow for rehabilit ation [...] discharge plans to Sw[facility] in [facility] tomorrow. DVT prophylaxis with SCD's only due to risks of bleeding. Discharge plans tomorrow to [facility] in [place], [place] for rehabi litation. Called his daughter Ms. Huerta and left a message with updated information at phone number [phone]. Jerry Chino MD 12/30/2019 olden Cantu PA - 12/30/2019 12:35 PM PDTFormatting of this note might be different from the [facility] Service: Gastroenterology Consult Progress Note Hospital Day: LOS: 9 days SUBJECTIVE Patient Summary: This is an 89-year-old male with multiple medical problems and a his tory of hypertension, diabetes, CKD stage III who was transferred from [facility] t o a fall and he [...] motor deficits. PSYCHIATRIC: Appropriate, affect appears normal [facility] Gastroenterology Patient Name: Andres Guzmán Procedure [...] physician, the nurse, the anesthesiologist and the ip/mosaic technician in the pre-procedure area in the [...] successful. Thermal coagulation with Gold probe 7 Somali x 5 pulses was successful with hemostasis. [...] 12/29/2019 8:36 AM Number of Addenda: 0 [facility] DATA Lab Results Component Value Date [...] ll with any questions. Florina Cantu PA-C [facility] Gastroenterology 12/30/2019 Associated attestation - Lamont Hernandez MD - 12/31/2019 2:17 PM [id number] male with GI bleeding due to duodenal ulcer with visible vessel. The ulcer and visible vessel were tr eated with injection and gold probe thermal coagulation. The patient was seen and examined by me personally. The case was discussed with the physician's retail event assistant and I agree with the assessment and p tim as outlined in the note. Continue PPI IV infusion for total of 72 hours and then when patient is discharged he must be on twice daily PPI for 8 weeks. Resume Eliquis in 1 week. Lamont Hernandez MD Gastroenterology staffPalmer, [facility] - 12/30/2019 11:05 AM PDTFormatting of th [...] status. Disposition: Plan to discharge tomorrow, to Longterm Facility, once medically stable and cleared by [...] BUNCREARATIO 23 12/30/2019 PTH 72.57 (A) 04/01/2019 [id number] 25.2 (L) 12/27/2019 CALCIUM 8.6 12/30/2019 PHOS [...] been following up with [facility] mena in [place]. That had improved with nonoliguric state but now seems to have leveled off at around 3 and this may be reflection of unrecovered acute kidney injury and a higher baseline creatinine. At this time there is no clinical uremia, refractory volume overload, refractory acidosis, refractory hyperkalemia and no urgent indication of starting PROGRAM OR PROJECT ADMINISTRATOR. Neither is there an indication for diagnostic [...] Incentive spirometry. Transfuse Prn. No indication for PROGRAM OR PROJECT ADMINISTRATOR for now. Await renal recovery. I discussed [...] was completed later after rounds. Dictation software, [facility], was used which may contain error for [...] but not limited to potential need for PROGRAM OR PROJECT ADMINISTRATOR . This is a patient with multiple [...] BUNCREARATIO 30 12/29/2019 PTH 72.57 (A) 04/01/2019 [id number] 25.2 (L) 12/27/2019 CALCIUM 8.7 12/29/2019 PHOS [...] been following up with EN[facility] mena in [place]. That seems to be improving with nonoliguric state and small reduction in creatinine. At this time there is no clinical uremia, refractory volume overload, refractory acidosis, refractory hyperkalemia and no urgent indication of starting PROGRAM OR PROJECT ADMINISTRATOR. Neither is there an indication for diagnostic [...] Incentive spirometry. Transfuse Prn. No indication for PROGRAM OR PROJECT ADMINISTRATOR for now. Await renal recovery. I discussed [...] was completed later after rounds. Dictation software, [facility], was used which may contain error for [...] but not limited to potential need for PROGRAM OR PROJECT ADMINISTRATOR . acetaminophen 1,000 mg Oral 3 times [...] who was admitted as a transfer from [facility] due t o a mechanical [...] improve. Nephrology services consulted and Dr. Willie agrcia, renal ultrasound done which was negative for [...] finding placement and he was accepted by [facility] in [place], [place] for rehabilitation purposes. Hospita l stay [...] but needs rehabilitation, he is accepted by [facility] in [place], [place] with discharge plans early next weeks [...] another 1 to 2 to SNF in [place], [place] if remains stable and improve d. Called his daughter Ms. Huerta and updated her about plans at phone number [phone]. Jerry Chino MD 12/29/2019 acon, Norma Kilpatrick [...] BUNCREARATIO 28 12/28/2019 PTH 72.57 (A) 04/01/2019 [id number] 25.2 (L) 12/27/2019 CALCIUM 8.5 12/28/2019 PHOS [...] been following up with EN[facility]INA mena in [place]. That seems to be improving with nonoliguric state and small reduction in creatinine. At this time there is no clinical uremia, refractory volume overload, refractory acidosis, refractory hyperkalemia and no urgent indication of starting PROGRAM OR PROJECT ADMINISTRATOR. Neither is there an indication for diagnostic [...] Incentive spirometry. Transfuse Prn. No indication for PROGRAM OR PROJECT ADMINISTRATOR for now. Await renal recovery. I discussed [...] was completed later after rounds. Dictation software, [facility], was used which may contain error for [...] but not limited to potential need for PROGRAM OR PROJECT ADMINISTRATOR . acetaminophen 1,000 mg Oral 3 times [...] dinner dextrose 10% pantoprazole 8 mg/hr (12/28/19 2321) orter, DALILA Grant - 12/28/2019 10:49 AM PDT [facility] Service: Orthopedic Surgery Progress Note Hospital [...] DALILA Peralta has created this entry using [employer] e and [employer] macros. The entry has been reviewed and [...] who was admitted as a transfer from [facility] due t o a mechanical [...] finding placement and he was accepted by [facility] in [place], [place] for rehabilitation purposes. Hospita l stay [...] making slow progress, he is accepted by [facility] in [place], [place] with discharge plans possib ly early [...] 1 to 2 to a SNF in [place], [place] when renal functions are st able and cleared by Nephrology services. Also called his daughter Ms. Huerta and updated her a bout plans at phone number [phone]. Jerry Chino MD 12/28/2019 Ghazal Ferrer COTA - 12/27/2019 4:15 PM PDT MISSED OCCUPATIONAL THERAPY VISIT: Therapy attempted to see the following patient today: Andres Guzmán Missed Visit (treatment on hold) The reason for the missed visit was: pt supine in bed upon FUEL TECHNICIAN arrival. Pt jsut recieving 2 units of [...] been following up with [facility] mena in [place]. That seems to be improving with nonoliguric state and small reduction in creatinine. At this time there is no clinical uremia, refractory volume overload, refractory acidosis, refractory hyperkalemia and no urgent indication of starting PROGRAM OR PROJECT ADMINISTRATOR. Neither is there an indication for diagnostic [...] Incentive spirometry. Transfuse Prn. No indication for PROGRAM OR PROJECT ADMINISTRATOR for now. Await renal recovery. I discussed [...] was completed later after rounds. Dictation software, [facility], was used which may contain error for [...] but not limited to potential need for PROGRAM OR PROJECT ADMINISTRATOR . acetaminophen 1,000 mg Oral 3 times [...] status. Disposition: Plan to discharge Monday, to Longterm Facility, once medically stable a nd cleared [...] Net -400 ml . Treatment plan: per gate services supervisor; slowly improving. *Blood pressure: labile; See VS [...] disorder: elevated PTH and phosphorus. Treatment per gate services supervisor (see thei r note). Subjective No chest [...] who was admitted as a transfer from [facility] due t o a mechanical [...] Medications Current Facilty-Administered PRN Medications Ordered in [facility] Medication Dose Route Frequency Provider [...] mg 4 mg Oral Q6H PRN Anders Stoo PA-C ondansetron (ZOFRAN) injection 4 mg 4 [...] trength and mobility. He is accepted by [facility] in [place], [place] and discharge is delayed due to [...] to 3 days to a SNF in [place], [place] when renal functions a re stable and cleared by Nephrology services. Jerry Chino MD 12/27/2019 Linda Montalvo RN - 12/26/2019 5:09 PM PDT [facility] Service: Wound Care Consult Note Hospital [...] who was admitted as a transfer from [facility] due t o a mechanical [...] placement is recommended. 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 Huerta and the at phone number [phone] Code Status: Full Code Regino Greene MD [...] status. Disposition: Plan to discharge Monday, to Longterm Facility, once medically stable a nd cleared [...] lab follow-up and treatment per hospitalist and gate services supervisor. *Blood pressure: hypotensive; See VS for BP trending. 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 Huerta and the at phone number [phone] Code Status: Full Code Regino Greene MD [...] conversation with family members today. Inpatient rehabilitation liaison. Code Status: Full Code Regino Greene MD 12/23/2019 10:03 PM [facility] - 12/23/2019 12:27 PM PDT . ORTHOPEDIC [...] 2019 | Visit | | [address] [facility] [address] | | | | | | [address] [place] [address] | | | | | | [address] | | | | | | | | +--------+ + + + + | 02/05/ | Office | Cardiology | Dina Sanchez DO | | | 2019 | Visit | | [address] | | | | | | [place] | | | | | | [address] | | | | | | | | +--------+ + + + + | 02/09/ | Procedure | Cardiology | | | | 2019 | visit | | | | +--------+ + + + + | 02/17/ | Office | Orthopedic Surgery | Melquiades Baez | | | 2019 | Visit | | [address] | | | | | | [facility], | | | | | | [place] [address] | | | | | | [phone] | | | | | | | | +--------+ + + + + | 03/09/ | Office | Nephrology | Isiah Jade MD | | | 2019 | Visit | | [address] [facility] | | | | | | [address] [facility] | | | | | | [address] | | | | | | | [...] + +--------+ + + + | *TERMED* [facility] UPPER GI | Routin | 12/29/2019 | [...] | | | Dr | | | Swain | +---+--------+ + +--------+ +---+ + | [...] | 65 - 99 mg/dL | [facility] | | | POC | performed at [facility];[address] | | LABORATORY | | | | [address];[place] | | | | | | [address] | | | | + + + + + + + + | Specimen | + + | | + + + + + + + | Performing | Address | City/State/Zipcode | Phone Number | | Organization | | | | + + + + + | [facility] | [address] | [place] [address] | [phone] | + + + + + POC Glucose (01/01/2020 6:29 AM PDT) + + + + + + | Component | Value | Ref Range | Performed | Pathologist | | | | | At | Signature | + + + + + + | Glucose, | 143 (H)Comment: Testing | 65 - 99 mg/dL | [facility] | | | POC | performed at [facility];[address] | | LABORATORY | | | | [address];[place] | | | | | | [address] | | | | + + + + + + + + | Specimen | + + | | + + + + + + + | Performing | Address | City/State/Zipcode | Phone Number | | Organization | | | | + + + + + | [facility] | [address] | [place] [address] | [phone] | + + + + + Basic [...] | | | | | performed at [facility];[address] | | | | | | [address];[place] | | | | | | [address] | | | | + + + + + + + + | Specimen | + + | Blood | + + + + + + + | Performing | Address | City/State/Zipcode | Phone Number | | Organization | | | | + + + + + | [facility] | [address] [facility] | [place] [address] | [phone] | + + + + + CBC [...] | | | Absolute | performed at [facility];[address] | K/uL | LABORATORY | | | | [address];[place], [place] | | | | | | [address] | | | | + + + + + + + + | Specimen | + + | Blood | + + + + + + + | Performing | Address | City/State/Zipcode | Phone Number | | Organization | | | | + + + + + | [facility] | [address] | [place] [address] | [phone] | + + + + + POC [...] | | | POC | performed at [facility];[address] | | LABORATORY | | | | [address];[place] | | | | | | [address] | | | | + + + + + + + + | Specimen | + + | | + + + + + + + | Performing | Address | City/State/Zipcode | Phone Number | | Organization | | | | + + + + + | [facility] | [address] [facility] | [place] [address] | [phone] | + + + + + POC [...] | | | POC | performed at [facility];[address] | | LABORATORY | | | | [address];[place], [place] | | | | | | [address] | | | | + + + + + + + + | Specimen | + + | | + + + + + + + | Performing | Address | City/State/Zipcode | Phone Number | | Organization | | | | + + + + + | [facility] | [address] | [place] [address] | [phone] | + + + + + POC [...] | | | POC | performed at [facility];[address] | | LABORATORY | | | | [address];[place] | | | | | | [address] | | | | + + + + + + + + | Specimen | + + | | + + + + + + + | Performing | Address | City/State/Zipcode | Phone Number | | Organization | | | | + + + + + | [facility] | [address] | [place] [address] | [phone] | + + + + + POC Glucose (12/31/2019 6:36 AM PDT) + + + + + + | Component | Value | Ref Range | Performed | Pathologist | | | | | At | Signature | + + + + + + | Glucose, | 154 (H)Comment: Testing | 65 - 99 mg/dL | [facility] | | | POC | performed at [facility];[address] | | LABORATORY | | | | [address];[place] | | | | | | [address] | | | | + + + + + + + + | Specimen | + + | | + + + + + + + | Performing | Address | City/State/Zipcode | Phone Number | | Organization | | | | + + + + + | [facility] | [address] | [place] [address] | [phone] | + + + + + Basic [...] | | | | | performed at [facility], [address] | | | | | | [facility], | | | | | | [place] [address] | | | | + + + + + + + + | Specimen | + + | Blood | + + + + + + + | Performing | Address | City/State/Zipcode | Phone Number | | Organization | | | | + + + + + | [facility] | [address] | [place] [address] | [phone] | + + + + + CBC [...] | | | | | [place] [address] | | | | + + + + + + + + | Specimen | + + | Blood | + + + + + + + | Performing | Address | City/State/Zipcode | Phone Number | | Organization | | | | + + + + + | [facility] | [address] | [place] [address] | [phone] | + + + + + POC [...] | | | POC | performed at [facility];[address] | | LABORATORY | | | | [address];[place] | | | | | | [address] | | | | + + + + + + + + | Specimen | + + | | + + + + + + + | Performing | Address | City/State/Zipcode | Phone Number | | Organization | | | | + + + + + | [facility] | [address] [facility] | [place] [address] | [phone] | + + + + + POC [...] | | | POC | performed at [facility];[address] | | LABORATORY | | | | [address];[place] | | | | | | [address] | | | | + + + + + + + + | Specimen | + + | | + + + + + + + | Performing | Address | City/State/Zipcode | Phone Number | | Organization | | | | + + + + + | [facility] | [address] | [place] [address] | [phone] | + + + + + POC Glucose (12/30/2019 11:02 AM PDT) + + + + + + | Component | Value | Ref Range | Performed | Pathologist | | | | | At | Signature | + + + + + + | Glucose, | 128 (H)Comment: Testing | 65 - 99 mg/dL | [facility] | | | POC | performed at [facility];[address] | | LABORATORY | | | | [address];[place] | | | | | | [address] | | | | + + + + + + + + | Specimen | + + | | + + + + + + + | Performing | Address | City/State/Zipcode | Phone Number | | Organization | | | | + + + + + | [facility] | [address] | [place] [address] | [phone] | + + + + + Basic [...] | 8.6 | 8.5 - 10.5 | [facility] | | | | | mg/dL | LABORATORY | | + + + + + + | Estimated | 20 (L)Comment: GFR <60: | >60 | [facility] | | | GFR | [...] | | | | | | [facility] traceable | | | | | | equation.Testing | | | | | | performed at [facility];[address] | | | | | | [facility];[place], [place] | | | | | | [address] | | | | + + + + + + + + | Specimen | + + | Blood | + + + + + + + | Performing | Address | City/State/Zipcode | Phone Number | | Organization | | | | + + + + + | [facility] | [address] | [place] [address] | [phone] | + + + + + POC [...] | | | POC | performed at [facility];[address] | | LABORATORY | | | | [address];[place] | | | | | | [address] | | | | + + + + + + + + | Specimen | + + | | + + + + + + + | Performing | Address | City/State/Zipcode | Phone Number | | Organization | | | | + + + + + | [facility] | [address] | [place] [address] | [phone] | + + + + + CBC [...] | | | Absolute | performed at [facility];[address] | K/uL | LABORATORY | | | | [address];[place], [place] | | | | | | [address] | | | | + + + + + + + + | Specimen | + + | Blood | + + + + + + + | Performing | Address | City/State/Zipcode | Phone Number | | Organization | | | | + + + + + | [facility] | [address] | [place] [address] | [phone] | + + + + + POC [...] | | | POC | performed at [facility];[address] | | LABORATORY | | | | [address];[place], [place] | | | | | | [address] | | | | + + + + + + + + | Specimen | + + | | + + + + + + + | Performing | Address | City/State/Zipcode | Phone Number | | Organization | | | | + + + + + | [facility] | [address] [facility] | [place] [address] | [phone] | + + + + + Hemoglobin [...] [facility] | | | | performed at [facility];[address] | | LABORATORY | | | | [facility];[place], [place] | | | | | | [address] | | | | + + + + + + + + | Specimen | + + | Blood | + + + + + + + | Performing | Address | City/State/Zipcode | Phone Number | | Organization | | | | + + + + + | [facility] | [address] | [place] [address] | [phone] | + + + + + POC [...] | | | POC | performed at [facility];[address] | | LABORATORY | | | | [address];[place], [place] | | | | | | [address] | | | | + + + + + + + + | Specimen | + + | | + + + + + + + | Performing | Address | City/State/Zipcode | Phone Number | | Organization | | | | + + + + + | [facility] | [address] | [place] [address] | [phone] | + + + + + Hemoglobin [...] [facility] | | | | performed at [facility];[address] | | LABORATORY | | | | [address];[place], [place] | | | | | | [address] | | | | + + + + + + + + | Specimen | + + | Blood | + + + + + + + | Performing | Address | City/State/Zipcode | Phone Number | | Organization | | | | + + + + + | [facility] | [address] | [place] [address] | [phone] | + + + + + POC Glucose (12/29/2019 11:43 AM PDT) + + + + + + | Component | Value | Ref Range | Performed | Pathologist | | | | | At | Signature | + + + + + + | Glucose, | 191 (H)Comment: Testing | 65 - 99 mg/dL | [facility] | | | POC | performed at [facility];[address] | | LABORATORY | | | | [address];[place], [place] | | | | | | [address] | | | | + + + + + + + + | Specimen | + + | | + + + + + + + | Performing | Address | City/State/Zipcode | Phone Number | | Organization | | | | + + + + + | [facility] | [address] | [place] [address] | [phone] | + + + + + POC Glucose (12/29/2019 11:06 AM PDT) + + + + + + | Component | Value | Ref Range | Performed | Pathologist | | | | | At | Signature | + + + + + + | Glucose, | 205 (H)Comment: Testing | 65 - 99 mg/dL | [facility] | | | POC | performed at [facility];[address] | | LABORATORY | | | | [address];[place] | | | | | | [address] | | | | + + + + + + + + | Specimen | + + | | + + + + + + + | Performing | Address | City/State/Zipcode | Phone Number | | Organization | | | | + + + + + | [facility] | [address] | [place] [address] | [phone] | + + + + + Surgical [...] | | technical component was performed by [facility], [address] [facility] | | | [place] [address] ([employer]: Padmini Sellers MD; CLIA# | | | [id number]). Professional interpretation was performed by[facility] | | | [employer], | | | [place] [address] ([employer] Mill [employer]: Oscar Maynard M.D.; CLIA#: | | | [id number]). Diagnostician: Padmini Sellers | | | MDPathologistElectronically [...] | |The technical component was performed by [facility], [address] [place] [address] (Sand Mill Operator [employer]: Padmini Sellers MD; CLIA# [id number]). Professional interpretation was performed by | | |[facility] [address] ([employer]: Oscar Maynard M.D.; CLIA#: [id number]). | | | | | |Diagnostician: Padmini [...] Performed At | + + + | [facility] | [facility] | | [facility] | PROVATION | | [facility]ology | | | Patient Name: Andres Guzmán | | | Procedure Date: 12/29/2019 8:36 AMMRN: [id number] | | | of : 1930 | [...] the anesthesiologist and the | | | ip/mosaic technician in the pre-procedure area in the [...] | | | with Gold probe 7 Somali x 5 pulses was successful with | [...] | | | AMNumber of Addenda: 0 [facility] | | | - Check hemoglobin q 6 hours for one day. | | | | | | | | |LAMONT HERNANDEZ MD | | |12/29/2019 10:19:54 AM | | |This report has been signed electronically. | | | | | |Note Initiated On: 12/29/2019 8:36 AM | | |Number of Addenda: 0 | | | | | | [facility] | | + + + + [...] ALEX | | | | performed at [facility];[address] | | LABORATORY | | | | [address];[place] | | | | | | [address] | | | | + + + + + + + + | Specimen | + + | Blood | + + + + + + + | Performing | Address | City/State/Zipcode | Phone Number | | Organization | | | | + + + + + | [facility] | [address] | [place] [address] | [phone] | + + + + + POC [...] | | | POC | performed at [facility];[address] | | LABORATORY | | | | [address];[place], [place] | | | | | | [address] | | | | + + + + + + + + | Specimen | + + | | + + + + + + + | Performing | Address | City/State/Zipcode | Phone Number | | Organization | | | | + + + + + | [facility] | [address] | [place] [address] | [phone] | + + + + + CBC [...] | | | Absolute | performed at [facility];[address] | K/uL | LABORATORY | | | | [address];[place] | | | | | | [address] | | | | + + + + + + + + | Specimen | + + | Blood | + + + + + + + | Performing | Address | City/State/Zipcode | Phone Number | | Organization | | | | + + + + + | [facility] | [address] | [place] [address] | [phone] | + + + + + Protime [...] | | | | | performed at [facility] | | | | | | [address];[place], [place] | | | | | | [address] | | | | + + + + + + + + | Specimen | + + | Blood | + + + + + + + | Performing | Address | City/State/Zipcode | Phone Number | | Organization | | | | + + + + + | [facility] | [address] | [place] [address] | [phone] | + + + + + Basic [...] | 8.7 | 8.5 - 10.5 | [facility] | | | | | mg/dL | LABORATORY | | + + + + + + | Estimated | 20 (L)Comment: GFR <60: | >60 | [facility] | | | GFR | [...] | | | | | | MDRD IDIA traceable | | | | | | equation.Testing | | | | | | performed at [facility] | | | | | | [address] [facility];[place], [place] | | | | | | [address] | | | | + + + + + + + + | Specimen | + + | Blood | + + + + + + + | Performing | Address | City/State/Zipcode | Phone Number | | Organization | | | | + + + + + | [facility] | [address] | [place] [address] | [phone] | + + + + + POC Glucose (12/28/2019 11:27 PM PDT) + + + + + + | Component | Value | Ref Range | Performed | Pathologist | | | | | At | Signature | + + + + + + | Glucose, | 192 (H)Comment: Testing | 65 - 99 mg/dL | [facility] | | | POC | performed at [facility];[address] | | LABORATORY | | | | [address];[place], [place] | | | | | | [address] | | | | + + + + + + + + | Specimen | + + | | + + + + + + + | Performing | Address | City/State/Zipcode | Phone Number | | Organization | | | | + + + + + | [facility] | [address] | [place] [address] | [phone] | + + + + + Hemoglobin [...] [facility] | | | | performed at [facility];[address] | | LABORATORY | | | | [address];[place], [place] | | | | | | [address] | | | | + + + + + + + + | Specimen | + + | Blood | + + + + + + + | Performing | Address | City/State/Zipcode | Phone Number | | Organization | | | | + + + + + | [facility] | [address] | [place] [address] | [phone] | + + + + + POC Glucose (12/28/2019 8:47 PM PDT) + + + + + + | Component | Value | Ref Range | Performed | Pathologist | | | | | At | Signature | + + + + + + | Glucose, | 216 (H)Comment: Testing | 65 - 99 mg/dL | [facility] | | | POC | performed at [facility];[address] | | LABORATORY | | | | [address];[place] | | | | | | [address] | | | | + + + + + + + + | Specimen | + + | | + + + + + + + | Performing | Address | City/State/Zipcode | Phone Number | | Organization | | | | + + + + + | [facility] | [address] | [place] [address] | [phone] | + + + + + Fecal [...] | | LABORATORY | | | | [facility];[address];[place] [address] | | | | + + + + + + + + | Specimen | + + | Stool - Stool | | specimen (specimen) | + + + + + + + | Performing | Address | City/State/Zipcode | Phone Number | | Organization | | | | + + + + + | [facility] | [address] | [place] [address] | [phone] | + + + + + POC [...] | | | POC | performed at [facility];[address] | | LABORATORY | | | | [address];[place], [place] | | | | | | [address] | | | | + + + + + + + + | Specimen | + + | | + + + + + + + | Performing | Address | City/State/Zipcode | Phone Number | | Organization | | | | + + + + + | [facility] | [address] | [place] [address] | [phone] | + + + + + Hemoglobin [...] Testing | 39.0 - 50.0 % | [facility] | | | | performed at [facility];[address] | | LABORATORY | | | | [address];[place], [place] | | | | | | [address] | | | | + + + + + + + + | Specimen | + + | Blood | + + + + + + + | Performing | Address | City/State/Zipcode | Phone Number | | Organization | | | | + + + + + | [facility] | [address] | [place] [address] | [phone] | + + + + + POC [...] | | | POC | performed at [facility];[address] | | LABORATORY | | | | [address];[place], [place] | | | | | | [address] | | | | + + + + + + + + | Specimen | + + | | + + + + + + + | Performing | Address | City/State/Zipcode | Phone Number | | Organization | | | | + + + + + | [facility] | [address] | [place] [address] | [phone] | + + + + + POC [...] | | | POC | performed at [facility];[address] | | LABORATORY | | | | [address];[place], [place] | | | | | | [address] | | | | + + + + + + + + | Specimen | + + | | + + + + + + + | Performing | Address | City/State/Zipcode | Phone Number | | Organization | | | | + + + + + | [facility] | [address] | [place] [address] | [phone] | + + + + + CBC [...] | | | Absolute | performed at [facility], [address] | K/uL | LABORATORY | | | | [address], | | | | | | [place] [address] | | | | + + + + + + + + | Specimen | + + | Blood | + + + + + + + | Performing | Address | City/State/Zipcode | Phone Number | | Organization | | | | + + + + + | [facility] | [address] | [place] [address] | [phone] | + + + + + Basic [...] | | | | | performed at [facility], [address] | | | | | | [facility], | | | | | | [place] [address] | | | | + + + + + + + + | Specimen | + + | Blood | + + + + + + + | Performing | Address | City/State/Zipcode | Phone Number | | Organization | | | | + + + + + | [facility] | [address] | [place] [address] | [phone] | + + + + + POC Glucose (12/27/2019 8:44 PM PDT) + + + + + + | Component | Value | Ref Range | Performed | Pathologist | | | | | At | Signature | + + + + + + | Glucose, | 191 (H)Comment: Testing | 65 - 99 mg/dL | [facility] | | | POC | performed at [facility];[address] | | LABORATORY | | | | [address];[place] | | | | | | [address] | | | | + + + + + + + + | Specimen | + + | | + + + + + + + | Performing | Address | City/State/Zipcode | Phone Number | | Organization | | | | + + + + + | [facility] | [address] | [place] [address] | [phone] | + + + + + POC Glucose (12/27/2019 3:30 PM PDT) + + + + + + | Component | Value | Ref Range | Performed | Pathologist | | | | | At | Signature | + + + + + + | Glucose, | 156 (H)Comment: Testing | 65 - 99 mg/dL | [facility] | | | POC | performed at [facility];[address] | | LABORATORY | | | | [address];[place] | | | | | | [address] | | | | + + + + + + + + | Specimen | + + | | + + + + + + + | Performing | Address | City/State/Zipcode | Phone Number | | Organization | | | | + + + + + | [facility] | [address] | [place] [address] | [phone] | + + + + + Red [...] | ORDER RECEIVED IN BLOOD | | [facility] | | | COMMENT | BANK. | | LABORATORY | | + + + + + + | BLOOD BANK | Testing performed at | | [facility] | | | COMMENT | [facility];[address] | | LABORATORY | | | | [address];[place] [address] | | | | + + + + + + + + | Specimen | + + | | + + + + + + + | Performing | Address | City/State/Zipcode | Phone Number | | Organization | | | | + + + + + | [facility] | [address] | [place] [address] | [phone] | + + + + + Type [...] + + + | BB BAND | [id number] | | [facility] | | | | | | LABORATORY | | + + + + + + | UNIT # | [id number] | | [facility] | | | | [...] + + + | UNIT # | [id number] | | [facility] | | | | [...] | | | RESULT | performed at [facility];[address] | | LABORATORY | | | | [address];[place] | | | | | | [address] | | | | + + + + + + + + | Specimen | + + | Blood | + + + + + + + | Performing | Address | City/State/Zipcode | Phone Number | | Organization | | | | + + + + + | [facility] | [address] | [place] [address] | [phone] | + + + + + POC Glucose (12/27/2019 7:25 AM PDT) + + + + + + | Component | Value | Ref Range | Performed | Pathologist | | | | | At | Signature | + + + + + + | Glucose, | 186 (H)Comment: Testing | 65 - 99 mg/dL | [facility] | | | POC | performed at [facility];[address] | | LABORATORY | | | | [address];[place] | | | | | | [address] | | | | + + + + + + + + | Specimen | + + | | + + + + + + + | Performing | Address | City/State/Zipcode | Phone Number | | Organization | | | | + + + + + | [facility] | [address] | [place] [address] | [phone] | + + + + + CBC [...] | | | Absolute | performed at [facility], [address] | K/uL | LABORATORY | | | | [address], | | | | | | [place] [address] | | | | + + + + + + + + | Specimen | + + | | + + + + + + + | Performing | Address | City/State/Zipcode | Phone Number | | Organization | | | | + + + + + | [facility] | [address] | [place] [address] | [phone] | + + + + + Procalcitonin (12/27/2019 5:04 AM PDT) + + + + + + | Component | Value | Ref Range | Performed | Pathologist | | | | | At | Signature | + + + + + + | PROCALCITON | 0.41Comment: | <0.5 ng/mL | [facility] | | | IN | [...] | | | | | | at [facility];[address] [place] [address] | | | | | | [facility];[place] [address] | | | | + + + + + + + + | Specimen | + + | Blood | + + + + + + + | Performing | Address | City/State/Zipcode | Phone Number | | Organization | | | | + + + + + | [facility] | [address] | [place] [address] | [phone] | + + + + + Basic [...] | | | | | | MDRD IDIA traceable | | | | | | equation.Testing | | | | | | performed at [facility], [address] | | | | | | [facility], | | | | | | [place] [address] | | | | + + + + + + + + | Specimen | + + | Blood | + + + + + + + | Performing | Address | City/State/Zipcode | Phone Number | | Organization | | | | + + + + + | [facility] | [address] | [place] [address] | [phone] | + + + + + Vitamin D, Deficiency Screen (25-Hydroxy) (12/27/2019 5:04 AM PDT) + + + + + + | Component | Value | Ref Range | Performed | Pathologist | | | | | At | Signature | + + + + + + | Vit D, | 25.2 (L)Comment: Vitamin | 30.0 - 100.0 | [facility] | | | 25-Hydroxy | D deficiency has been | ng/mL | LABORATORY | | | | defined by the [facility] | | | | | | ofMedicine [...] IOM | | | | | | ([facility]). | | | | | [...] | | | | | performed at [facility], | | | | | | [address], | | | | | | [facility] [address] | | | | + + + + + + + + | Specimen | + + | Blood | + + + + + + + | Performing | Address | City/State/Zipcode | Phone Number | | Organization | | | | + + + + + | [facility] | [address] | [place] [address] | [phone] | + + + + + Potassium (12/27/2019 12:08 AM PDT) + + + + + + | Component | Value | Ref Range | Performed | Pathologist | | | | | At | Signature | + + + + + + | K | 4.0Comment: Testing | 3.5 - 4.9 | [facility] | | | | performed at [facility];[address] | mmol/L | LABORATORY | | | | [address];[place], [place] | | | | | | [address] | | | | + + + + + + + + | Specimen | + + | Blood | + + + + + + + | Performing | Address | City/State/Zipcode | Phone Number | | Organization | | | | + + + + + | [facility] | [address] [facility] | [place] [address] | [phone] | + + + + + Magnesium (12/27/2019 12:08 AM PDT) + + + + + + | Component | Value | Ref Range | Performed | Pathologist | | | | | At | Signature | + + + + + + | Magnesium | 2.2Comment: Testing | 1.7 - 2.4 mg/dL | [facility] | | | | performed at [facility];[address] | | LABORATORY | | | | [address];[place], [place] | | | | | | [address] | | | | + + + + + + + + | Specimen | + + | Blood | + + + + + + + | Performing | Address | City/State/Zipcode | Phone Number | | Organization | | | | + + + + + | [facility] | [address] | [place] [address] | [phone] | + + + + + ECG [...] | | | POC | performed at [facility];[address] | | LABORATORY | | | | [address];[place] | | | | | | [address] | | | | + + + + + + + + | Specimen | + + | | + + + + + + + | Performing | Address | City/State/Zipcode | Phone Number | | Organization | | | | + + + + + | [facility] | [address] [facility] | [place] [address] | [phone] | + + + + + POC [...] | | | POC | performed at [facility];[address] | | LABORATORY | | | | [address];[place] | | | | | | [address] | | | | + + + + + + + + | Specimen | + + | | + + + + + + + | Performing | Address | City/State/Zipcode | Phone Number | | Organization | | | | + + + + + | [facility] | [address] | [place] [address] | [phone] | + + + + + Complement C4 Ag (12/26/2019 12:33 PM PDT) + + + + + + | Component | Value | Ref Range | Performed | Pathologist | | | | | At | Signature | + + + + + + | C4 | 15Comment: Testing | 14 - 44 mg/dL | [facility] | | | COMPLEMENT | performed at [facility], | | LABORATORY | | | | [address], | | | | | | [facility] [address] | | | | + + + + + + + + | Specimen | + + | | + + + + + + + | Performing | Address | City/State/Zipcode | Phone Number | | Organization | | | | + + + + + | [facility] | [address] | [place] [address] | [phone] | + + + + + Complement C3 Ag (12/26/2019 12:33 PM PDT) + + + + + + | Component | Value | Ref Range | Performed | Pathologist | | | | | At | Signature | + + + + + + | C3 | 53 (L)Comment: Testing | 82 - 167 mg/dL | [facility] | | | COMPLEMENT | performed at [facility], | | LABORATORY | | | | [address], | | | | | | [facility] [address] | | | | + + + + + + + + | Specimen | + + | | + + + + + + + | Performing | Address | City/State/Zipcode | Phone Number | | Organization | | | | + + + + + | [facility] | [address] | [place] [address] | [phone] | + + + + + POC [...] | | | POC | performed at [facility];[address] | | LABORATORY | | | | [address];[place], [place] | | | | | | [address] | | | | + + + + + + + + | Specimen | + + | | + + + + + + + | Performing | Address | City/State/Zipcode | Phone Number | | Organization | | | | + + + + + | [facility] | [address] | [place] [address] | [phone] | + + + + + POC [...] | | | POC | performed at [facility];[address] | | LABORATORY | | | | [address];[place] | | | | | | [address] | | | | + + + + + + + + | Specimen | + + | | + + + + + + + | Performing | Address | City/State/Zipcode | Phone Number | | Organization | | | | + + + + + | [facility] | [address] | [place] [address] | [phone] | + + + + + Parathyroid [...] [address] | | | | [address];[place] [address] | | | | + + + + + + + + | Specimen | + + | | + + + + + + + | Performing | Address | City/State/Zipcode | Phone Number | | Organization | | | | + + + + + | [facility] | [address] | [place] [address] | [phone] | + + + + + Renal [...] (L)Comment: GFR <60: | >60 | [facility] | | | GFR | [...] | | | | | | MDRD IDIA traceable | | | | | | equation.Testing | | | | | | performed at [facility], [address] | | | | | | [facility], | | | | | | [place] [address] | | | | + + + + + + + + | Specimen | + + | Blood | + + + + + + + | Performing | Address | City/State/Zipcode | Phone Number | | Organization | | | | + + + + + | [facility] | [address] | [place] [address] | [phone] | + + + + + POC [...] | | | POC | performed at [facility];[address] | | LABORATORY | | | | [address];[place] | | | | | | [address] | | | | + + + + + + + + | Specimen | + + | | + + + + + + + | Performing | Address | City/State/Zipcode | Phone Number | | Organization | | | | + + + + + | [facility] | [address] | [place] [address] | [phone] | + + + + + POC [...] | | | POC | performed at [facility];[address] | | LABORATORY | | | | [address];[place] | | | | | | [address] | | | | + + + + + + + + | Specimen | + + | | + + + + + + + | Performing | Address | City/State/Zipcode | Phone Number | | Organization | | | | + + + + + | [facility] | [address] [facility] | [place] [address] | [phone] | + + + + + ECHO [...] | | | POC | performed at [facility];[address] | | LABORATORY | | | | [address];[place] | | | | | | [address] | | | | + + + + + + + + | Specimen | + + | | + + + + + + + | Performing | Address | City/State/Zipcode | Phone Number | | Organization | | | | + + + + + | [facility] | [address] | [place] [address] | [phone] | + + + + + POC Glucose (12/25/2019 7:56 AM PDT) + + + + + + | Component | Value | Ref Range | Performed | Pathologist | | | | | At | Signature | + + + + + + | Glucose, | 136 (H)Comment: Testing | 65 - 99 mg/dL | [facility] | | | POC | performed at [facility];[address] | | LABORATORY | | | | [address];[place] | | | | | | [address] | | | | + + + + + + + + | Specimen | + + | | + + + + + + + | Performing | Address | City/State/Zipcode | Phone Number | | Organization | | | | + + + + + | [facility] | [address] | [place] [address] | [phone] | + + + + + CK Total (12/25/2019 4:25 AM PDT) + + + + + + | Component | Value | Ref Range | Performed | Pathologist | | | | | At | Signature | + + + + + + | CK TOTAL | 104Comment: Testing | 55 - 400 U/L | [facility] | | | | performed at [facility];[address] | | LABORATORY | | | | [address];[place] | | | | | | [address] | | | | + + + + + + + + | Specimen | + + | Blood | + + + + + + + | Performing | Address | City/State/Zipcode | Phone Number | | Organization | | | | + + + + + | [facility] | [address] | [place] [address] | [phone] | + + + + + Renal [...] | | | | | performed at [facility], [address] | | | | | [facility], | | | | | | [place] [address] | | | | + + + + + + + + | Specimen | + + | Blood | + + + + + + + | Performing | Address | City/State/Zipcode | Phone Number | | Organization | | | | + + + + + | [facility] | [address] | [place] [address] | [phone] | + + + + + Cytoplasmic [...] | | | | | with both NH-3 and | | | | | | [...] <1:20Comment: The | Neg:<1:20 titer | [facility] | | | pANCA | [...] | | | | | performed by [employer] | | | | | | [address] [facility], | | | | | | [facility] [address] | | | | + + + + + + + + | Specimen | + + | Blood | + + + + + + + | Performing | Address | City/State/Zipcode | Phone Number | | Organization | | | | + + + + + | [facility] | [address] | [place] [address] | [phone] | + + + + + Sedimentation [...] | | | | | [place] [address] | | | | + + + + + + + + | Specimen | + + | Blood | + + + + + + + | Performing | Address | City/State/Zipcode | Phone Number | | Organization | | | | + + + + + | [facility] | [address] | [place] [address] | [phone] | + + + + + Immunoglobulin, Free Light Chain (12/25/2019 4:22 AM PDT) + + + + + + | Component | Value | Ref Range | Performed | Pathologist | | | | | At | Signature | + + + + + + | [place] Free | 121.2 (H) | 3.3 - [...] + + + + + + | [place] | 1.25Comment: Testing | 0.26 - 1.65 | [facility] | | | a Free | performed at [facility] | | LABORATORY | | | Light Chain | [place] [address] | | | | | Ratio | [place] [address] | | | | + + + + + + + + | Specimen | + + | Blood | + + + + + + + | Performing | Address | City/State/Zipcode | Phone Number | | Organization | | | | + + + + + | [facility] | [address] | [place] [address] | [phone] | + + + + + Glomerular [...] | | | | | [place] | | | | | | [address] | | | | + + + + + + + + | Specimen | + + | Blood | + + + + + + + | Performing | Address | City/State/Zipcode | Phone Number | | Organization | | | | + + + + + | [facility] | [address] | [place] [address] | [phone] | + + + + + Hepatitis [...] | | | | | | 0.9The [facility] recommends | | | | | | that a positive HCV | | | | | | antibody resultbe | | | | | | followed up with a HCV | | | | | | Nucleic Acid | | | | | | Amplificationtest | | | | | | ([id number]).Testing | | | | | | performed at [facility], | | | | | | [address], [facility], | | | | | | [facility] [address] | | | | + + + + + + + + | Specimen | + + | Blood | + + + + + + + | Performing | Address | City/State/Zipcode | Phone Number | | Organization | | | | + + + + + | [facility] | [address] | [place] [address] | [phone] | + + + + + CK Total (12/25/2019 4:22 AM PDT) + + + + + + | Component | Value | Ref Range | Performed | Pathologist | | | | | At | Signature | + + + + + + | CK TOTAL | 100Comment: Testing | 55 - 400 U/L | [facility] | | | | performed at [facility];[address] | | LABORATORY | | | | [address];[place] | | | | | | [address] | | | | + + + + + + + + | Specimen | + + | Blood | + + + + + + + | Performing | Address | City/State/Zipcode | Phone Number | | Organization | | | | + + + + + | [facility] | [address] | [place] [address] | [phone] | + + + + + Lactate Dehydrogenase (12/25/2019 4:22 AM PDT) + + + + + + | Component | Value | Ref Range | Performed | Pathologist | | | | | At | Signature | + + + + + + | LDH TOTAL | 154Comment: Testing | 120 - 246 U/L | [facility] | | | | performed at [facility];[address] | | LABORATORY | | | | [address];[place], [place] | | | | | | [address] | | | | + + + + + + + + | Specimen | + + | Blood | + + + + + + + | Performing | Address | City/State/Zipcode | Phone Number | | Organization | | | | + + + + + | [facility] | [address] | [place] [address] | [phone] | + + + + + Magnesium (12/25/2019 4:22 AM PDT) + + + + + + | Component | Value | Ref Range | Performed | Pathologist | | | | | At | Signature | + + + + + + | Magnesium | 2.5 (H)Comment: Testing | 1.7 - 2.4 mg/dL | [facility] | | | | performed at [facility], [address] | | LABORATORY | | | | [address], | | | | | | [place] [address] | | | | + + + + + + + + | Specimen | + + | Blood | + + + + + + + | Performing | Address | City/State/Zipcode | Phone Number | | Organization | | | | + + + + + | [facility] | [address] | [place] [address] | [phone] | + + + + + Protein, Urine, Random (12/25/2019 12:01 AM PDT) + + + + + + | Component | Value | Ref Range | Performed | Pathologist | | | | | At | Signature | + + + + + + | Protein, | 131Comment: NO NORMAL | mg/dL | [facility] | | | Urine | [facility] | | LABORATORY | | | | performed at [facility], [address] | | | | | [address], | | | | | | [place] [address] | | | | + + + + + + + + | Specimen | + + | | + + + + + + + | Performing | Address | City/State/Zipcode | Phone Number | | Organization | | | | + + + + + | [facility] | [address] | [place] [address] | [phone] | + + + + + Creatinine, Urine, Random (12/25/2019 12:01 AM PDT) + + + + + + | Component | Value | Ref Range | Performed | Pathologist | | | | | At | Signature | + + + + + + | Creatinine, | 139.0Comment: NO NORMAL | mg/dL | [facility] | | | random | [facility] | | LABORATORY | | | urine | performed at [facility], [address] | | | | | | [address], | | | | | | [place] [address] | | | | + + + + + + + + | Specimen | + + | | + + + + + + + | Performing | Address | City/State/Zipcode | Phone Number | | Organization | | | | + + + + + | [facility] | [address] | [place] [address] | [phone] | + + + + + Protein/Creatinine Ratio, Urine (12/25/2019 12:01 AM PDT) + + + + + + | Component | Value | Ref Range | Performed | Pathologist | | | | | At | Signature | + + + + + + | PRO/CREA | 0.942Comment: Testing | | [facility] | | | RATIO,URINE | performed at [facility], [address] | | LABORATORY | | | | [address], | | | | | | [place] [address] | | | | + + + + + + + + | Specimen | + + | Urine | + + + + + + + | Performing | Address | City/State/Zipcode | Phone Number | | Organization | | | | + + + + + | [facility] | [address] | [place] [address] | [phone] | + + + + + POC [...] | | | POC | performed at [facility];[address] | | LABORATORY | | | | [address];[place], [place] | | | | | | [address] | | | | + + + + + + + + | Specimen | + + | | + + + + + + + | Performing | Address | City/State/Zipcode | Phone Number | | Organization | | | | + + + + + | [facility] | [address] | [place] [address] | [phone] | + + + + + POC Glucose (12/24/2019 5:14 PM PDT) + + + + + + | Component | Value | Ref Range | Performed | Pathologist | | | | | At | Signature | + + + + + + | Glucose, | 136 (H)Comment: Testing | 65 - 99 mg/dL | [facility] | | | POC | performed at [facility];[address] | | LABORATORY | | | | [address];[place] | | | | | | [address] | | | | + + + + + + + + | Specimen | + + | | + + + + + + + | Performing | Address | City/State/Zipcode | Phone Number | | Organization | | | | + + + + + | [facility] | [address] | [place] [address] | [phone] | + + + + + ECG [...] | | | Arterial, | performed at [facility];[address] | | LABORATORY | | | POC | [address];[place], [place] | | | | | | [address] | | | | + + + + + + + + | Specimen | + + | | + + + + + + + | Performing | Address | City/State/Zipcode | Phone Number | | Organization | | | | + + + + + | [facility] | [address] | [place] [address] | [phone] | + + + + + Coronavirus (COVID-19) NAAKing (12/24/2019 1:10 PM PDT) + + + + + + | Component | Value | Ref Range | Performed | Pathologist | | | | | At | Signature | + + + + + + | SARS-CoV-2, | NEGATIVEComment: Testing | NEG | [facility] | | | YOU | performed at [facility];[address] | | LABORATORY | | | (COVID-19) | [address];[place] | | | | | | [address] | | | | + + + [...] [facility] | [address] | [place] [address] | [phone] | + + + + + Culture, [...] | | LABORATORY | | | | Blvd;[place] [address] | | | | + + + + + + | RESULT | NO GROWTH 6 DAYS | | [facility] | | | | | | LABORATORY | | + + + + + + | RESULT | Testing performed at | | [facility] | | | | TCL, [address] [facility] | | LABORATORY | | | | [place] | | | | | | [address]Ohebaii: Testing | | | | | | performed at [facility], [address] | | | | | | [facility] [place], [place] | | | | | | [address] | | | | + + + [...] [facility] | [address] | [place] [address] | [phone] | + + + + + Culture, [...] Special | Testing performed at | | [facility] | | | Requests | [facility];[address] | | LABORATORY | | | | [address];[place] [address] | | | | + + + + + + | RESULT | NO GROWTH 6 DAYS | | [facility] | | | | | | LABORATORY | | + + + + + + | RESULT | Testing performed at | | [facility] | | | | TCL, [address] | | LABORATORY | | | | [address], [place], [place] | | | | | | [address]Obkchql: Testing | | | | | | performed at [facility], [address] | | | | | | [address], [place], [place] | | | | | | [address] | | | | + + + + + + + + | Specimen | + + | Blood - Peripheral | | blood specimen | | (specimen) | + + + + + + + | Performing | Address | City/State/Zipcode | Phone Number | | Organization | | | | + + + + + | [facility] | [address] | [place] [address] | [phone] | + + + + + Urinalysis [...] - 1.030 | [facility] | | | [place], | | | LABORATORY | | | [...] | | | Urine | performed at [facility], [address] | | LABORATORY | | | | [address], | | | | | | [place] [address] | | | | + + + [...] + + + + + | [facility] | [address] | [place] [address] | [phone] | + + + + + Sodium, Urine, Random (12/24/2019 12:45 PM PDT) + + + + + + | Component | Value | Ref Range | Performed | Pathologist | | | | | At | Signature | + + + + + + | Sodium, | 52Comment: NO NORMAL | mmol/L | [facility] | | | Random | [facility] | | LABORATORY | | | urine | performed at [facility], [address] | | | | | | [address], | | | | | | [place] [address] | | | | + + + [...] + + + + + | [facility] | [address] | [place] [address] | [phone] | + + + + + Creatinine, [...] | | | urine | performed at [facility], [address] | | | | | | [address], | | | | | | [place] [address] | | | | + + + [...] + + + + + | [facility] | [address] | [place] [address] | [phone] | + + + + + Lactic Acid (12/24/2019 12:27 PM PDT) + + + + + + | Component | Value | Ref Range | Performed | Pathologist | | | | | At | Signature | + + + + + + | Lactate, | 1.6Comment: Testing | 0.4 - 2.0 | [facility] | | | Serum | performed at [facility];[address] | mmol/L | LABORATORY | | | | [address];[place], [place] | | | | | | [address] | | | | + + + + + + + + | Specimen | + + | Blood | + + + + + + + | Performing | Address | City/State/Zipcode | Phone Number | | Organization | | | | + + + + + | [facility] | [address] | [place] [address] | [phone] | + + + + + Procalcitonin [...] | | | | | | at [facility];[address] | | | | | | [address];[place] [address] | | | | + + + + + + + + | Specimen | + + | Blood | + + + + + + + | Performing | Address | City/State/Zipcode | Phone Number | | Organization | | | | + + + + + | [facility] | [address] | [place] [address] | [phone] | + + + + + POC [...] | | | POC | performed at [facility];[address] | | LABORATORY | | | | [address];[place], [place] | | | | | | [address] | | | | + + + + + + + + | Specimen | + + | | + + + + + + + | Performing | Address | City/State/Zipcode | Phone Number | | Organization | | | | + + + + + | [facility] | [address] | [place] [address] | [phone] | + + + + + POC [...] | | | POC | performed at [facility];[address] | | LABORATORY | | | | [address];[place] | | | | | | [address] | | | | + + + + + + + + | Specimen | + + | | + + + + + + + | Performing | Address | City/State/Zipcode | Phone Number | | Organization | | | | + + + + + | [facility] | [address] | [place] [address] | [phone] | + + + + + CBC [...] LABORATORY | | | | performed at [facility];[address] | | | | | | [address];[place] | | | | | | [address] | | | | + + + + + + + + | Specimen | + + | Blood | + + + + + + + | Performing | Address | City/State/Zipcode | Phone Number | | Organization | | | | + + + + + | [facility] | [address] | [place] [address] | [phone] | + + + + + Basic [...] | | | | | performed at [facility], [address] | | | | | | [facility], | | | | | | [place] [address] | | | | + + + + + + + + | Specimen | + + | Blood | + + + + + + + | Performing | Address | City/State/Zipcode | Phone Number | | Organization | | | | + + + + + | [facility] | [address] | [place] [address] | [phone] | + + + + + POC [...] | | | POC | performed at [facility];[address] | | LABORATORY | | | | [address] [facility];[place], [place] | | | | | | [address] | | | | + + + + + + + + | Specimen | + + | | + + + + + + + | Performing | Address | City/State/Zipcode | Phone Number | | Organization | | | | + + + + + | [facility] | [address] | [place] [address] | [phone] | + + + + + POC Glucose (12/23/2019 4:35 PM PDT) + + + + + + | Component | Value | Ref Range | Performed | Pathologist | | | | | At | Signature | + + + + + + | Glucose, | 129 (H)Comment: Testing | 65 - 99 mg/dL | [facility] | | | POC | performed at [facility];[address] | | LABORATORY | | | | [address];[place] | | | | | | [address] | | | | + + + + + + + + | Specimen | + + | | + + + + + + + | Performing | Address | City/State/Zipcode | Phone Number | | Organization | | | | + + + + + | [facility] | [address] | [place] [address] | [phone] | + + + + + POC Glucose (12/23/2019 2:05 PM PDT) + + + + + + | Component | Value | Ref Range | Performed | Pathologist | | | | | At | Signature | + + + + + + | Glucose, | 158 (H)Comment: Testing | 65 - 99 mg/dL | [facility] | | | POC | performed at [facility];[address] | | LABORATORY | | | | [address];[place] | | | | | | [address] | | | | + + + + + + + + | Specimen | + + | | + + + + + + + | Performing | Address | City/State/Zipcode | Phone Number | | Organization | | | | + + + + + | [facility] | [address] | [place] [address] | [phone] | + + + + + POC [...] | | | POC | performed at [facility];[address] | | LABORATORY | | | | [address];[place] | | | | | | [address] | | | | + + + + + + + + | Specimen | + + | | + + + + + + + | Performing | Address | City/State/Zipcode | Phone Number | | Organization | | | | + + + + + | [facility] | [address] | [place] [address] | [phone] | + + + + + Basic [...] | | | | | | [facility] traceable | | | | | | equation.Testing | | | | | | performed at [facility];[address] | | | | | | [facility];[place], [place] | | | | | | [address] | | | | + + + + + + + + | Specimen | + + | Blood | + + + + + + + | Performing | Address | City/State/Zipcode | Phone Number | | Organization | | | | + + + + + | [facility] | [address] | [place] [address] | [phone] | + + + + + Phosphorus (12/23/2019 4:04 AM PDT) + + + + + + | Component | Value | Ref Range | Performed | Pathologist | | | | | At | Signature | + + + + + + | Phosphorus | 4.6Comment: Testing | 2.3 - 4.8 mg/dL | [facility] | | | | performed at [facility];[address] | | LABORATORY | | | | [address];[place], [place] | | | | | | [address] | | | | + + + + + + + + | Specimen | + + | Blood | + + + + + + + | Performing | Address | City/State/Zipcode | Phone Number | | Organization | | | | + + + + + | [facility] | [address] | [place] [address] | [phone] | + + + + + Magnesium (12/23/2019 4:04 AM PDT) + + + + + + | Component | Value | Ref Range | Performed | Pathologist | | | | | At | Signature | + + + + + + | Magnesium | 2.1Comment: Testing | 1.7 - 2.4 mg/dL | [facility] | | | | performed at [facility];[address] | | LABORATORY | | | | [address];[place] | | | | | | [address] | | | | + + + + + + + + | Specimen | + + | Blood | + + + + + + + | Performing | Address | City/State/Zipcode | Phone Number | | Organization | | | | + + + + + | [facility] | [address] | [place] [address] | [phone] | + + + + + CBC [...] LABORATORY | | | | performed at [facility];[address] | | | | | | [address];[place] | | | | | | [address] | | | | + + + + + + + + | Specimen | + + | Blood | + + + + + + + | Performing | Address | City/State/Zipcode | Phone Number | | Organization | | | | + + + + + | [facility] | [address] | [place] [address] | [phone] | + + + + + Hemoglobin (12/22/2019 9:37 PM PDT) + + + + + + | Component | Value | Ref Range | Performed | Pathologist | | | | | At | Signature | + + + + + + | Hemoglobin | 9.1 (L)Comment: Testing | 13.2 - 17.0 | [facility] | | | | performed at [facility];[address] | g/dL | LABORATORY | | | | [address];[place] | | | | | | [address] | | | | + + + + + + + + | Specimen | + + | Blood | + + + + + + + | Performing | Address | City/State/Zipcode | Phone Number | | Organization | | | | + + + + + | [facility] | [address] | [place] [address] | [phone] | + + + + + Hematocrit (12/22/2019 9:37 PM PDT) + + + + + + | Component | Value | Ref Range | Performed | Pathologist | | | | | At | Signature | + + + + + + | Hematocrit | 27.4 (L)Comment: Testing | 39.0 - 50.0 % | [facility] | | | | performed at [facility];[address] | | LABORATORY | | | | [address];[place], [place] | | | | | | [address] | | | | + + + + + + + + | Specimen | + + | Blood | + + + + + + + | Performing | Address | City/State/Zipcode | Phone Number | | Organization | | | | + + + + + | [facility] | [address] | [place] [address] | [phone] | + + + + + POC Glucose (12/22/2019 8:30 PM PDT) + + + + + + | Component | Value | Ref Range | Performed | Pathologist | | | | | At | Signature | + + + + + + | Glucose, | 129 (H)Comment: Testing | 65 - 99 mg/dL | [facility] | | | POC | performed at [facility];[address] | | LABORATORY | | | | [address];[place] | | | | | | [address] | | | | + + + + + + + + | Specimen | + + | | + + + + + + + | Performing | Address | City/State/Zipcode | Phone Number | | Organization | | | | + + + + + | [facility] | [address] | [place] [address] | [phone] | + + + + + POC Glucose (12/22/2019 5:32 PM PDT) + + + + + + | Component | Value | Ref Range | Performed | Pathologist | | | | | At | Signature | + + + + + + | Glucose, | 153 (H)Comment: Testing | 65 - 99 mg/dL | [facility] | | | POC | performed at [facility];[address] | | LABORATORY | | | | [address];[place], [place] | | | | | | [address] | | | | + + + + + + + + | Specimen | + + | | + + + + + + + | Performing | Address | City/State/Zipcode | Phone Number | | Organization | | | | + + + + + | [facility] | [address] | [place] [address] | [phone] | + + + + + Red [...] | Testing performed at | | [facility] | | | COMMENT | [facility];[address] | | LABORATORY | | | | [address];[place] [address] | | | | + + + + + + + + | Specimen | + + | | + + + + + + + | Performing | Address | City/State/Zipcode | Phone Number | | Organization | | | | + + + + + | [facility] | [address] | [place] [address] | [phone] | + + + + + POC [...] | | | POC | performed at [facility];[address] | | LABORATORY | | | | [address];[place], [place] | | | | | | [address] | | | | + + + + + + + + | Specimen | + + | | + + + + + + + | Performing | Address | City/State/Zipcode | Phone Number | | Organization | | | | + + + + + | [facility] | [address] | [place] [address] | [phone] | + + + + + [place] [...] | | | POC | performed at [facility];[address] | g/dL | LABORATORY | | | | [address];[place], [place] | | | | | | [address] | | | | + + + + + + + + | Specimen | + + | | + + + + + + + | Performing | Address | City/State/Zipcode | Phone Number | | Organization | | | | + + + + + | [facility] | [address] | [place] [address] | [phone] | + + + + + POC [...] | | | POC | performed at [facility];[address] | g/dL | LABORATORY | | | | [address];[place], [place] | | | | | | [address] | | | | + + + + + + + + | Specimen | + + | | + + + + + + + | Performing | Address | City/State/Zipcode | Phone Number | | Organization | | | | + + + + + | [facility] | [address] | [place] [address] | [phone] | + + + + + NATHANAEL [...] | | | POC | performed at [facility];[address] | g/dL | LABORATORY | | | | [address];[place] | | | | | | [address] | | | | + + + + + + + + | Specimen | + + | | + + + + + + + | Performing | Address | City/State/Zipcode | Phone Number | | Organization | | | | + + + + + | [facility] | [address] | [place] [address] | [phone] | + + + + + POC [...] | | | POC | performed at [facility];[address] | g/dL | LABORATORY | | | | [address];[place], [place] | | | | | | [address] | | | | + + + + + + + + | Specimen | + + | | + + + + + + + | Performing | Address | City/State/Zipcode | Phone Number | | Organization | | | | + + + + + | [facility] | [address] | [place] [address] | [phone] | + + + + + Type [...] + + + | BB BAND | [id number] | | [facility] | | | | | | LABORATORY | | + + + + + + | UNIT # | [id number] | | [facility] | | | | [...] | | | RESULT | performed at [facility];[address] | | LABORATORY | | | | [address];[place] | | | | | | [address] | | | | + + + + + + | UNIT # | [id number] | | [facility] | | | | [...] + + + + + | [facility] | [address] | [place] [address] | [phone] | + + + + + POC [...] | | | POC | performed at [facility];[address] | | LABORATORY | | | | [address];[place], [place] | | | | | | [address] | | | | + + + + + + + + | Specimen | + + | | + + + + + + + | Performing | Address | City/State/Zipcode | Phone Number | | Organization | | | | + + + + + | [facility] | [address] | [place] [address] | [phone] | + + + + + Shine [...] | | | | | performed at [facility];[address] | | | | | | [address] [facility];[place], [place] | | | | | | [address] | | | | + + + + + + + + | Specimen | + + | Blood | + + + + + + + | Performing | Address | City/State/Zipcode | Phone Number | | Organization | | | | + + + + + | [facility] | [address] | [place] [address] | [phone] | + + + + + CBC [...] Testing | 0.00 - 0.10 | [facility] | | | Absolute | performed at [facility], [address] | LABORATORY | | | | [address], | | | | | | [place] [address] | | | | + + + + + + + + | Specimen | + + | Blood | + + + + + + + | Performing | Address | City/State/Zipcode | Phone Number | | Organization | | | | + + + + + | [facility] | [address] | [place] [address] | [phone] | + + + + + Magnesium (12/22/2019 5:26 AM PDT) + + + + + + | Component | Value | Ref Range | Performed | Pathologist | | | | | At | Signature | + + + + + + | Magnesium | 2.6 (H)Comment: Testing | 1.7 - 2.4 mg/dL | [facility] | | | | performed at [facility], [address] | | LABORATORY | | | | [address], | | | | | | [place] [address] | | | | + + + + + + + + | Specimen | + + | Blood | + + + + + + + | Performing | Address | City/State/Zipcode | Phone Number | | Organization | | | | + + + + + | [facility] | [address] | [place] [address] | [phone] | + + + + + Basic [...] (L)Comment: GFR <60: | >60 | [facility] | | | GFR | [...] | | | | | performed at [facility], [address] | | | | | | [facility], | | | | | | [place] [address] | | | | + + + + + + + + | Specimen | + + | Blood | + + + + + + + | Performing | Address | City/State/Zipcode | Phone Number | | Organization | | | | + + + + + | [facility] | [address] | [place] [address] | [phone] | + + + + + POC [...] | | | POC | performed at [facility];[id number] | | LABORATORY | | | | [address];[place] | | | | | | [address] | | | | + + + + + + + + | Specimen | + + | | + + + + + + + | Performing | Address | City/State/Zipcode | Phone Number | | Organization | | | | + + + + + | [facility] | [address] | [place] [address] | [phone] | + + + + + POC [...] | | | POC | performed at [facility];[id number] | | LABORATORY | | | | [address];[place] | | | | | | [address] | | | | + + + + + + + + | Specimen | + + | | + + + + + + + | Performing | Address | City/State/Zipcode | Phone Number | | Organization | | | | + + + + + | [facility] | [address] | [place] [address] | [phone] | + + + + + documented [...] | | | | | | | 1126-6797 Use NIGHT DOSE for | | | | | | | doses scheduled: HS, | | | | | | | Nighttime 5933-8536 If the BG is | | | [...]
--- OUTSIDE RECORDS SUMMARY | ~2020-01-27 | XMS | Encounter Summary ---
Demographics + + + | Address | [address] | | | [place] [address] | + + + | Home Phone | | + + + | Preferred Language | Unknown | + + + | Marital Status | | + + + | Religion Affiliation | 1001 | + + + | Race | Unknown | + + + | Ethnic Group | Unknown | + + + Author + + + | Author | [facility] | | | and [place] | + + + | Organization | [facility] | | | [...] [place] | | | | | [address] | | + + + + + | Deanna Lawson | ECON | Unknown | | + + + + + Care Team Providers + +------+ + | Care Fur Mixer Name | Role | Phone | + [...] Provider Unknown | | | | | [place], [place] | | | | | | [address] | (Fax) | | | | | [phone] | | | +--------+ + + + [...] 2019 | Visit | | [address] [facility] | | | | | | [address] [place] | | | | | | [address] | | | | | | | | +--------+ + + + + | 02/05/ | Office | Cardiology | Dina Sanchez DO | | | 2019 | Visit | | [address] | | | | | | [place] | | | | | | [address] | | | | | | | [...] | | | | [facility] [place], | | | | | | [place] [address] | | | | | | [phone] | | | | | | | | +--------+ + + + + | 03/09/ | Office | Nephrology | Isiah Jade MD | | | 2019 | Visit | | [address] [facility] | | | | | | [address] [place] | | | | | | [address] | | | | | | | [...]
--- OUTSIDE RECORDS SUMMARY | ~2020-01-27 | XMS | Encounter Summary ---
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[place], [place] | [phone] | disease, stage III | | | | [address] | | (moderate) ([facility]); | | | | [phone] | | Chronic diastolic | | | | | | heart failure ([facility]) | +--------+ + + + + Social [...] Visit | | [address] [facility] | | | | | | [address] [place] | | | | | | [address] | | | | | | | | +--------+ + + + + | 02/05/ | Office | Cardiology | Dina Sanchez DO | | | 2019 | Visit | | [address] | | | | | | [place] | | | | | | [address] | | | | | | | | +--------+ + + + + | 02/09/ | Procedure | Cardiology | | | | 2019 | visit | | | | +--------+ + + + + | 02/17/ | Office | Orthopedic Surgery | Melquiades Baez | | | 2019 | Visit | | [address] | | | | | | [facility], | | | | | | [place] [address] | | | | | | [phone] | | | | | | | | +--------+ + + + + | 03/09/ | Office | Nephrology | Isiah Jade MD | | | 2019 | Visit | | [address] [facility] | | | | | | [facility] | | | | | | [address] | | | | | | | [...] | | | | | | (moderate) ([facility]) | | + +------+--------+ + + | CBC with | Lab | Routin | Chronic diastolic | Expected: | | Differential | | e | heart failure ([facility]) | 12/27/2018, Expires: | | | | | Essential (primary) | 12/27/2019 | | | | | hypertension | | | | | | Chronic kidney | | | | | | disease, stage III | | | | | | (moderate) ([facility]) | | + +------+--------+ + + | Protein/Creatinine | Lab | Routin | Chronic diastolic | Expected: | | Ratio, Urine | | e | heart failure ([facility]) | 12/27/2018, Expires: | | | | | Essential (primary) | 12/27/2019 | | | | | hypertension | | | | | | Chronic kidney | | | | | | disease, stage III | | | | | | (moderate) ([facility]) | | + +------+--------+ + + | Urinalysis with | Lab | Routin | Chronic diastolic | Expected: | | Microscopic if | | e | heart failure ([facility]) | 12/27/2018, Expires: | | Indicated | | | Essential (primary) | 12/27/2019 | | | | | hypertension | | | | | | Chronic kidney | | | | | | disease, stage III | | | | | | (moderate) ([facility]) | | + +------+--------+ + + | Uric Acid | Lab | Routin | Chronic diastolic | Expected: | | | | e | heart failure ([facility]) | 12/27/2018, Expires: | | | | | Essential (primary) | 12/27/2019 | | | | | hypertension | | | | | | Chronic kidney | | | | | | disease, stage III | | | | | | (moderate) ([facility]) | | + +------+--------+ + + | Renal Function Panel | Lab | Routin | Chronic kidney | Expected: | | | | e | disease, stage III | 03/21/2019, Expires: | | | | | (moderate) ([facility]) | 08/19/2020 | + +------+--------+ + + | CBC with | Lab | Routin | Chronic kidney | Expected: | | Differential | | e | disease, stage III | 03/21/2019, Expires: | | | | | (moderate) ([facility]) | 08/19/2020 | + +------+--------+ + + | Magnesium | Lab | Routin | Chronic kidney | Expected: | | | | e | disease, stage III | 03/21/2019, Expires: | | | | | (moderate) ([facility]) | 08/19/2020 | + +------+--------+ + + | Uric Acid | Lab | Routin | Chronic kidney | Expected: | | | | e | disease, stage III | 03/21/2019, Expires: | | | | | (moderate) ([facility]) | 08/19/2020 | + +------+--------+ + + | Parathyroid Hormone, | Lab | Routin | Chronic kidney | Expected: | | Intact | | e | disease, stage III | 03/21/2019, Expires: | | | | | (moderate) ([facility]) | 08/19/2020 | + +------+--------+ + + | Protein/Creatinine | Lab | Routin | Chronic kidney | Expected: | | Ratio, Urine | | e | disease, stage III | 03/21/2019, Expires: | | | | | (moderate) ([facility]) | 08/19/2020 | + +------+--------+ + + [...]
--- OUTSIDE RECORDS SUMMARY | ~2020-01-27 | XMS | Encounter Summary ---
Demographics + + + | Address | [address] | | | [place] [address] | + + + | Home Phone [...] [place] | | | | | [address] | | + + + + + | Deanna Lawson | ECON | Unknown | | + + + + + Care Team Providers + +------+ + | Care Ear Specialist Name | Role | Phone | [...] + + | 12/28/ | Anesthesia | [facility] | Maco Wolf, | | | 2019 | Event | [facility] | FAMILY HELPER [address] | | | | | INTRA [address] | [place] [address] | | | | | [address] [place] | [phone] | | | | | [address] | | | | | | [phone] | | | +--------+ + + + [...] | Salma, | | | | | Groutman | | +--------+ + + + | Urethr | 12/24/19; 1240; indicated for | 12/24/19 1240 by | 12/31/19 1140 by | | al | critically ill with need for | Saritha Tavarez, | Liz Washburn, | | Jayesh | accurate I/O; Patient/family | Groutman | RN | | er | educated [...] | Leatha Mayer, | | IV | fdsf-vno-oepuai catheter system; | | RN | | [...] 2020 | Visit | | [address] [facility] | | | | | | [address] [place] | | | | | | [address] | | | | | | | | +--------+ + + + + | 02/05/ | Office | Cardiology | Dina Sanchez DO | | | 2019 | Visit | | [address] | | | | | | [place] | | | | | | [address] | | | | | | | [...] | | | | | | [place] [address] | | | | | | [phone] | | | | | | | | +--------+ + + + + | 03/09/ | Office | Nephrology | Isiah Jade MD | | | 2019 | Visit | | [address] [facility] [address] | | | | | | [address] [place], [place] | | | | | | [address] | | | | | | | [...]
--- OUTSIDE RECORDS SUMMARY | ~2020-01-27 | XMS | Encounter Summary ---
Demographics + + + | Address | [address] | | | [place] [address] | + + + | Home Phone | | + + + | Preferred Language | Unknown | + + + | Marital Status | | + + + | Pentecostalism Affiliation | 1001 | + + + | Race | Unknown | + + + | Ethnic Group | Unknown | + + + Author + + + | Author | [facility] | | | and [place] | + + + | Organization | [facility] | | | and [...] [place] | | | | | [address] | | + + + + + | Deanna Lawson | ECON | Unknown | | + + + + + Care Team Providers + +------+ + | Care Salvage Worker Name | Role | Phone | [...] + + | 11/27/ | Virtual | [facility] | Charlee Oswald | Cardiac pacemaker in | | 2020 | Office | CARDIOLOGY [facility] | [address] | situ (Primary Dx); | | | Visit | [address] | [address] | 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 Andres [...] reported by him as being negative His FBS2FA1- VASC score is 6( HTN, age, stroke, [...] and note reviewed , [facility]. His current and previous testing and [...] his apix[place] had been stopped by the [place] for increased anemia but had noted that [...] also received documentation dated June from the [place] which noted they had stopped api xaban [...] recreational or illicit drug use. Exercises with [employer] and yard work, tolerates without chest pain or dyspnea. 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 Thompson) : new [employer]vm[employer]comde MRI com patible model L310, serial #[id number] pacemaker. The current lead is a [employer] model 4136, serial #[id number].Mode for pacing, VVIR with dual-sensor technology programmed on. T he lower rate will be 60 and upper rate 120beats per minute. The output will be 2 volts at 0.4 milliseconds with sensitivity of 2.5 millivolts. Pacing and sensing will be bipolar Previous Implant Pacemaker/ICD: 07/30/2010, BS [employer] S601, SN: [id number]. [facility]. Last pacer [...] was seen today for th is [employer] single-chamber device. The pacing threshold was [...] 15 mmHg. Normal pulmonic valve with mild PA. Sinus of Valsalva dilated about 4.26 cm, [...] change, except less pulmonar y hypertension Echo:07/26/2017: [facility]: EF >70 percent. LV normal in size [...] PHS 75,TOTAL BILI 0.6,ALB 3.9 Labs: 02/18/2018: ([facility]). CBC: WBC 6.2, RBC 3.46, [...] 73. Thyroid: TSH 3.55 Labs: 08/23/2018: ( [facility]): CBC: WBC 6.6, RBC 2.92, [...] atrial fi b with a very high BRB0DF0- VASC score of 6. For his cardiac [...] with Dr. Dina Sanchez 01/22/2020 for primary vp information technology, as well as seeing me. I also referred him for sleep apnea evaluation with Dr. Dorsey at the [facility] sleep disorders clinic due to [...] for continuity of care purp nettie [facility] 11/28/2019 Ubaldo gregory in this encounter Plan of Treatment +--------+ + + + + | Date | Type | Specialty | Care Team | Description | +--------+ + + + + | 01/29/ | Office | Nephrology | Isiah Jade MD | | | 2019 | Visit | | [address] [facility] | | | | | | [address] [place] | | | | | | [address] | | | | | | | | +--------+ + + + + | 02/05/ | Office | Cardiology | Dina Sanchez DO | | | 2019 | Visit | | [address] | | | | | | [place] | | | | | | [address] | | | | | | | [...] | | | | | [place], | | | | | | [place] [address] | | | | | | [phone] | | | | | | | | +--------+ + + + + | 03/09/ | Office | Nephrology | Isiah Jade MD | | | 2019 | Visit | | [address] [facility] | | | | | | [facility] | | | | | | [address] | | | | | | | [...]
--- OUTSIDE RECORDS SUMMARY | ~2020-01-27 | XMS | Encounter Summary ---
Demographics + + + | Address | [address] | | | [place] [address] | + + + | Home Phone | | + + + | Preferred Language | Unknown | + + + | Marital Status | | + + + | Holiness Affiliation | 1001 | + + + [...] [place] | | | | | [address] | | + + + + + | Deanna Lawson | ECON | Unknown | | + + + + + Care Team Providers + +------+ + | Care Medical Administrative Name | Role | Phone | + +------+ + | Barbara Gilman MD | PCP | | + +------+ + Encounter Details +--------+ + + + + | Date | Type | Department | Care Team | Description | +--------+ + + + + | 01/02/ | Orders Only | [facility] | Isiah Jade MD | Hypertension goal BP | | 2020 | | NEPHROLOGY [place] | [address] | (blood pressure) < | | | | [address] | [address] [place], [place] | 140/80 (Primary Dx); | | | | [address] [place], [place] | [address] | 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 | | | | | | [address] | | | | | | | | +--------+ + + + + | 02/05/ | Office | Cardiology | Dina Sanchez DO | | | 2019 | Visit | | [address] | | | | | | [place] | | | | | | [address] | | | | | | | | +--------+ + + + + | 02/09/ | Procedure | Cardiology | | | | 2019 | visit | | | | +--------+ + + + + | 02/17/ | Office | Orthopedic Surgery | Simón Baezson | | | 2019 | Visit | | [address] | | | | | | [place], | | | | | | [place] [address] | | | | | | [phone] | | | | | | | | +--------+ + + + + | 03/09/ | Office | Nephrology | Isiah Jade MD | | | 2019 | Visit | | [address] [facility] | | | | | | [address] [place] | | | | | | [address] | | | | | | | [...] tubular | | necrosis | + + documented in this encounter"
--- OUTSIDE RECORDS SUMMARY | ~2020-01-27 | XMS | Clinical Summary ---
Demographics + + + | Address | [address] | | | [place] [address] | + + + | Home Phone | | + + + | Preferred Language | Unknown | + + + | Marital Status | | + + + | Orthodox Affiliation | 1001 | + + + | Race | Unknown | + + + | Ethnic Group | Unknown | + + + Author + + + | Author | [facility] | | | and [place] | + + + | Organization | [facility] | | [...] [place] | | | | | [address] | | + + + + + | Deanna Lawson | ECON | Unknown | | + + + + + Care Team Providers + +------+ + | Care Chief Dispatcher Service Name | Role | Phone | + [...] + + + + | Overview: His NPS0XG4- VASC score is 6( HTN, age, stroke, [...] mild concentric LVH. 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 The | | pacing [...] note 01/23/20) | | | | | Design Painter | | +--------+ + + + + [...] | orders) | | | | | Design Painter | | +--------+ + + + + [...] Nephrology | Isiah Jade MD | Other ([facility] F/ | | 2019 | | | | ) | +--------+ + + + + | 12/28/ | Anesthesia | | Maco Wolf, | | | 2019 | Event | | TELESCOPE OPERATOR | | +--------+ + + + + | 12/28/ | Surgery | | Lamont Hernandez MD | GRUPOD | | 2019 | | | | | +--------+ + + + + | 12/21/ | Anesthesia | | Ja Hill, | | | 2019 | Event | | TELESCOPE OPERATOR | | +--------+ + + + [...] | | | | fibrillation ([facility]); | | | | | | [...] | | | | | ([facility]); 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, | | | | | | without long-term | | | | | | current use of | | | | | | insulin ([facility]); | | | | | | [...] + | Father | | | [place], [place] | | | | (Age | | [...] + + | Sister | | | [place] | | | | (Age | | [...] [place] | | | | | | [address] | | | | | | | | +--------+ + + + + | 02/05/ | Office | Cardiology | Dina Sanchez DO | | | 2019 | Visit | | [address] | | | | | | [place] | | | | | | [address] | | | | | | | [...] | | | | | | [place] [address] | | | | | | [phone] | | | | | | | | +--------+ + + + + | 03/09/ | Office | Nephrology | Isiah Jade MD | | | 2019 | Visit | | [address] | | | | | | [address] [place] | | | | | | [address] | | | | | | | [...] | + +--------+------+ +--------+--------+--------+ | Implant Id: [id number] - | Cardia | | | | | [id number] | | Pacer-02/04/2019Implanted: | c | | | | | /[id number] | | Qty: 1 on 02/04/2019 by | Rhythm | | | | | 1 / | | Enoch Thopmson MD | | | | | | | | | Manage | | | | | | | | ment | | | | | | + +--------+------+ +--------+--------+--------+ | Screw Lag Gamma3 Ti | Screw | | CHASIDY | | 07/20/ | 3060-0 | | [id number] - SnaImplanted: | | | MEDICAL - | | 2023 | 100S | | Qty: 1 on 12/22/2019 by | | | STRY | | | /NA | | Melquiades Baez DO at [facility] | | | | | | /[id number] | | [facility] | | | | | | 6D | | [place] | | | | | | | + +--------+------+ +--------+--------+--------+ | Screw Xochitl F/T T2 Ti 5x37.5mm | Screw | | CHASIDY | | 10/18/ | 1896-5 | | - SnaImplanted: Qty: 1 on | | | MEDICAL - | | 2024 | 037S | | 12/22/2019 by Melquiades Baez | | | STRY | | | /NA | | DO Regulo at [facility] | | | | | | /[id number] | | [facility] | | | | | | [...] | /NA | | DO Regulo at [facility] | | | | | | /[id number] | | [facility] | | | | | | 99 | + +--------+------+ +--------+--------+--------+ | Trochanteric NailImplanted: | | | Chasidy | | 07/20/ | [id number] | | Qty: 1 on 12/22/2019 by | | | Medical | | 4 | 200S | | Melquiades Baez DO at [facility] | | | | | | /NA | | [facility] | | | | | | /[id number] [...] + +--------+ + + + | *TERMED* [place] UPPER GI | Routin | 12/29/2019 | [...] Baez DO has created this entry using [employer] | | | Recognition software and [employer]. The entry has been reviewed | | | and there may still exist sound alike word errors. | | | | | |Electronically signed by: Melquiades Baez DO 01/24/2020 1:05 PM | | | | | | | | |Melquiades Baez DO has created this entry using [employer] | | |Recognition software and [employer] macros. The entry has been reviewed and [...] Testing | 65 - 99 mg/dL | [facility] | | | POC | performed at [facility];[address] | | LABORATORY | | | | [address];[place] | | | | | | [address] | | | | + + + + + + + + | Specimen | + + | | + + + + + + + | Performing | Address | City/State/Zipcode | Phone Number | | Organization | | | | + + + + + | [facility] | [address] | [place] [address] | [phone] | + + + + + CBC [...] | | | Absolute | performed at [facility];[address] | K/uL | LABORATORY | | | | [address];[place] | | | | | | [address] | | | | + + + + + + + + | Specimen | + + | Blood | + + + + + + + | Performing | Address | City/State/Zipcode | Phone Number | | Organization | | | | + + + + + | [facility] | [address] | [place] [address] | [phone] | + + + + + Basic [...] 23 (L)Comment: GFR <60: | >60 | [facility] | | | GFR | [...] | performed at [facility];[address] | | | | | | [facility];[place], [place] | | | | | | [address] | | | | + + + + + + + + | Specimen | + + | Blood | + + + + + + + | Performing | Address | City/State/Zipcode | Phone Number | | Organization | | | | + + + + + | [facility] | [address] | [place] [address] | [phone] | + + + + + Hemoglobin [...] [facility] | | | | performed at [facility];[address] | | LABORATORY | | | | [address];[place], [place] | | | | | | [address] | | | | + + + + + + + + | Specimen | + + | Blood | + + + + + + + | Performing | Address | City/State/Zipcode | Phone Number | | Organization | | | | + + + + + | [facility] | [address] | [place] [address] | [phone] | + + + + + Surgical [...] | | technical component was performed by [facility], [address] [place] [address] | | | [place] [address] (Card Maker: Padmini Sellers MD; CLIA# | | | [id number]). Professional interpretation was performed by[facility] | | | [facility], | | | [place] [address] (Card Maker: Oscar Maynard M.D.; CLIA#: | | | [id number]). Diagnostician: Padmini Sellers | | | MDPathologistElectronically [...] | |The technical component was performed by [facility], [address] [place] [address] (Card Maker: Padmini Sellers MD; CLIA# [id number]). Professional interpretation was performed by | | |[place] [id number] (Card Maker: Oscar Maynard M.D.; CLIA#: [id number]). | | | | | |Diagnostician: Padmini [...] Performed At | + + + | [facility] | [facility] | | [facility] | PROVATION | | CenterGastroenterology | | | Patient Name: Andres Guzmán | | | Procedure Date: 12/29/2019 8:36 AMMRN: [id number] | | | of : 1930 | [...] the anesthesiologist and the | | | voice and data technician in the pre-procedure area in the [...] | | | with Gold probe 7 Citizen [place] x 5 pulses was successful with | [...] | | | AMNumber of Addenda: 0 [facility] | | | - Check hemoglobin q 6 hours for one day. | | | | | | | | |LAMONT HERNANDEZ MD | | |12/29/2019 10:19:54 AM | | |This report has been signed electronically. | | | | | |Note Initiated On: 12/29/2019 8:36 AM | | |Number of Addenda: 0 | | | | | | [facility] | | + + + + [...] [place] | | | | | | [address] | | | | + + + + + + + + | Specimen | + + | Blood | + + + + + + + | Performing | Address | City/State/Zipcode | Phone Number | | Organization | | | | + + + + + | [facility] | [address] | [place] [address] | [phone] | + + + + + Fecal [...] [address];[place] [address] | | | | + + + + + + + + | Specimen | + + | Stool - Stool | | specimen (specimen) | + + + + + + + | Performing | Address | City/State/Zipcode | Phone Number | | Organization | | | | + + + + + | [facility] | [address] | [place] [address] | [phone] | + + + + + Red [...] Product | [employer] | | [facility] | | | Code | [...] | [facility] | | | COMMENT | [facility];[address] [facility] | | LABORATORY | | | | Blvd;[place] [address] | | | | + + + + + + + + | Specimen | + + | | + + + + + + + | Performing | Address | City/State/Zipcode | Phone Number | | Organization | | | | + + + + + | [facility] | [address] | [place] [address] | [phone] | + + + + + Type [...] + + + | BB BAND | [id number] | | [facility] | | | | | | LABORATORY | | + + + + + + | UNIT # | [id number] | | [facility] | | | | [...] + + + | UNIT # | [id number] | | [facility] | | | | [...] | | | RESULT | performed at [facility];[address] | | LABORATORY | | | | [address];[place] | | | | | | [address] | | | | + + + + + + + + | Specimen | + + | Blood | + + + + + + + | Performing | Address | City/State/Zipcode | Phone Number | | Organization | | | | + + + + + | [facility] | [address] | [place] [address] | [phone] | + + + + + Procalcitonin [...] | | | | | | at [facility];[address] | | | | | | [place] [address] | | | | + + + + + + + + | Specimen | + + | Blood | + + + + + + + | Performing | Address | City/State/Zipcode | Phone Number | | Organization | | | | + + + + + | [facility] | [address] | [place] [address] | [phone] | + + + + + Vitamin D, Deficiency Screen (25-Hydroxy) (12/27/2019 5:04 AM PDT) + + + + + + | Component | Value | Ref Range | Performed | Pathologist | | | | | At | Signature | + + + + + + | Vit D, | 25.2 (L)Comment: Vitamin | 30.0 - 100.0 | [facility] | | | 25-Hydroxy | D deficiency has been | ng/mL | LABORATORY | | | | defined by the [place] | | | | | | ofMedicine [...] IOM | | | | | | ([place] of [employer]). | | | | | [...] | | | | | performed at [facility], | | | | | | [address], | | | | | | [facility] [address] | | | | + + + + + + + + | Specimen | + + | Blood | + + + + + + + | Performing | Address | City/State/Zipcode | Phone Number | | Organization | | | | + + + + + | [facility] | [address] | [place] [address] | [phone] | + + + + + Potassium (12/27/2019 12:08 AM PDT) + + + + + + | Component | Value | Ref Range | Performed | Pathologist | | | | | At | Signature | + + + + + + | K | 4.0Comment: Testing | 3.5 - 4.9 | [facility] | | | | performed at [facility];[address] | mmol/L | LABORATORY | | | | [facility];[place], [place] | | | | | | [address] | | | | + + + + + + + + | Specimen | + + | Blood | + + + + + + + | Performing | Address | City/State/Zipcode | Phone Number | | Organization | | | | + + + + + | [facility] | [address] [facility] | [place] [address] | [phone] | + + + + + Magnesium [...] Testing | 1.7 - 2.4 mg/dL | [facility] | | | | performed at [facility];[address] | | LABORATORY | | | | [facility];[place] | | | | | | [address] | | | | + + + + + + + + | Specimen | + + | Blood | + + + + + + + | Performing | Address | City/State/Zipcode | Phone Number | | Organization | | | | + + + + + | [facility] | [address] | [place] [address] | [phone] | + + + + + ECG [...] | | | COMPLEMENT | performed at [facility], | | LABORATORY | | | | [address], | | | | | | [facility] [address] | | | | + + + + + + + + | Specimen | + + | | + + + + + + + | Performing | Address | City/State/Zipcode | Phone Number | | Organization | | | | + + + + + | [facility] | [address] | [place] [address] | [phone] | + + + + + Complement C4 Ag (12/26/2019 12:33 PM PDT) + + + + + + | Component | Value | Ref Range | Performed | Pathologist | | | | | At | Signature | + + + + + + | C4 | 15Comment: Testing | 14 - 44 mg/dL | [facility] | | | COMPLEMENT | performed at [facility], | | LABORATORY | | | | [address], | | | | | | [facility] [address] | | | | + + + + + + + + | Specimen | + + | | + + + + + + + | Performing | Address | City/State/Zipcode | Phone Number | | Organization | | | | + + + + + | [facility] | [address] | [place] [address] | [phone] | + + + + + Parathyroid Hormone, Intraoperative (12/26/2019 4:25 AM PDT) + + + + + + | Component | Value | Ref Range | Performed | Pathologist | | | | | At | Signature | + + + + + + | PTH Intact | 167.0 (H)Comment: | 8.7 - 79.6 | [facility] | | | | Testing performed at | pg/mL | LABORATORY | | | | [facility];[address] | | | | | [address];[place] [address] | | | | + + + + + + + + | Specimen | + + | | + + + + + + + | Performing | Address | City/State/Zipcode | Phone Number | | Organization | | | | + + + + + | [facility] | [address] | [place] [address] | [phone] | + + + + + Renal [...] 13 (L)Comment: GFR <60: | >60 | [facility] | | | GFR | [...] | | | | | | MDRD IDME traceable | | | | | | equation.Testing | | | | | | performed at [facility], [address] | | | | | | [facility], | | | | | | [place] [address] | | | | + + + + + + + + | Specimen | + + | Blood | + + + + + + + | Performing | Address | City/State/Zipcode | Phone Number | | Organization | | | | + + + + + | [facility] | [address] | [place] [address] | [phone] | + + + + + ECHO [...] [facility] | | | | performed at [facility];8 | | LABORATORY | | | | [address];[place], [place] | | | | | | [address] | | | | + + + + + + + + | Specimen | + + | Blood | + + + + + + + | Performing | Address | City/State/Zipcode | Phone Number | | Organization | | | | + + + + + | [facility] | [address] | [place] [address] | [phone] | + + + + + Immunoglobulin, Free Light Chain (12/25/2019 4:22 AM PDT) + + + + + + | Component | Value | Ref Range | Performed | Pathologist | | | | | At | Signature | + + + + + + | [place] Free | 121.2 (H) | 3.3 - [...] + + + + + + | [place]ambd | 1.25Comment: Testing | 0.26 - 1.65 | [facility] | | | a Free | performed at [facility] | | LABORATORY | | | Light Chain | [place] [address] | | | | | Ratio | [place] [address] | | | | + + + + + + + + | Specimen | + + | Blood | + + + + + + + | Performing | Address | City/State/Zipcode | Phone Number | | Organization | | | | + + + + + | [facility] | [address] | [place] [address] | [phone] | + + + + + Sedimentation Rate (12/25/2019 4:22 AM PDT) + + + + + + | Component | Value | Ref Range | Performed | Pathologist | | | | | At | Signature | + + + + + + | ESR | 6Comment: Testing | 0 - 20 mm/Hr | [facility] | | | | performed at [facility], [address] | | LABORATORY | | | | [address], | | | | | | [place] [address] | | | | + + + + + + + + | Specimen | + + | Blood | + + + + + + + | Performing | Address | City/State/Zipcode | Phone Number | | Organization | | | | + + + + + | [facility] | [address] | [place] [address] | [phone] | + + + + + Glomerular [...] [place] | | | | | | [address] | | | | + + + + + + + + | Specimen | + + | Blood | + + + + + + + | Performing | Address | City/State/Zipcode | Phone Number | | Organization | | | | + + + + + | [facility] | [address] | [place] [address] | [phone] | + + + + + Hepatitis [...] <0.1Comment: | 0.0 - 0.9 s/co | [facility] | | | | | [...] Amplificationtest | | | | | | ([id number]).Testing | | | | | | performed at [facility], | | | | | | [address], [facility] [address], | | | | | | [facility] [address] | | | | + + + + + + + + | Specimen | + + | Blood | + + + + + + + | Performing | Address | City/State/Zipcode | Phone Number | | Organization | | | | + + + + + | [facility] | [address] | [place] [address] | [phone] | + + + + + Cytoplasmic [...] | | | | | with both [place]-3 and | | | | | | [...] [place], | | | | | | [place] [address] | | | | + + + + + + + + | Specimen | + + | Blood | + + + + + + + | Performing | Address | City/State/Zipcode | Phone Number | | Organization | | | | + + + + + | [facility] | [address] | [place] [address] | [phone] | + + + + + Lactate Dehydrogenase (12/25/2019 4:22 AM PDT) + + + + + + | Component | Value | Ref Range | Performed | Pathologist | | | | | At | Signature | + + + + + + | LDH TOTAL | 154Comment: Testing | 120 - 246 U/L | [facility] | | | | performed at [facility];[address] | | LABORATORY | | | | [address];[place] | | | | | | [address] | | | | + + + + + + + + | Specimen | + + | Blood | + + + + + + + | Performing | Address | City/State/Zipcode | Phone Number | | Organization | | | | + + + + + | [facility] | [address] [facility] | [place] [address] | [phone] | + + + + + Protein/Creatinine Ratio, Urine (12/25/2019 12:01 AM PDT) + + + + + + | Component | Value | Ref Range | Performed | Pathologist | | | | | At | Signature | + + + + + + | PRO/CREA | 0.942Comment: Testing | | [facility] | | | RATIO,URINE | performed at [facility], [address] | | LABORATORY | | | | [address], | | | | | | [place] [address] | | | | + + + + + + + + | Specimen | + + | Urine | + + + + + + + | Performing | Address | City/State/Zipcode | Phone Number | | Organization | | | | + + + + + | [facility] | [address] | [place] [address] | [phone] | + + + + + Protein, [...] | | | | performed at [facility], [address] | | | | | [address], | | | | | | [place] [address] | | | | + + + + + + + + | Specimen | + + | | + + + + + + + | Performing | Address | City/State/Zipcode | Phone Number | | Organization | | | | + + + + + | [facility] | [address] | [place] [address] | [phone] | + + + + + Creatinine, [...] | | urine | performed at [facility], [address] | | | | | | [address] [facility], | | | | | | [place] [address] | | | | + + + + + + + + | Specimen | + + | | + + + + + + + | Performing | Address | City/State/Zipcode | Phone Number | | Organization | | | | + + + + + | [facility] | [address] | [place] [address] | [phone] | + + + + + XR [...] | | | Arterial, | performed at [facility];[address] | | LABORATORY | | | POC | [address] [facility];[place], [place] | | | | | | [address] | | | | + + + + + + + + | Specimen | + + | | + + + + + + + | Performing | Address | City/State/Zipcode | Phone Number | | Organization | | | | + + + + + | [facility] | [address] | [place] [address] | [phone] | + + + + + Coronavirus (COVID-19) NAAT (12/24/2019 1:10 PM PDT) + + + + + + | Component | Value | Ref Range | Performed | Pathologist | | | | | At | Signature | + + + + + + | SARS-CoV-2, | NEGATIVEComment: Testing | NEG | [facility] | | | YOU | performed at [facility];[address] | | LABORATORY | | | (COVID-19) | [address];[place], [place] | | | | | | [address] | | | | + + + + + + + + | Specimen | + + | Tissue - Entire | | nasopharynx (body | | structure) | + + + + + + + | Performing | Address | City/State/Zipcode | Phone Number | | Organization | | | | + + + + + | [facility] | [address] | [place] [address] | [phone] | + + + + + Culture, [...] | | LABORATORY | | | | Blvd;[place] [address] | | | | + + + + + + | RESULT | NO GROWTH 6 DAYS | | [facility] | | | | | | LABORATORY | | + + + + + + | RESULT | Testing performed at | | [facility] | | | | [facility], [address] [facility] | | LABORATORY | | | | [place] | | | | | | [address]Rlhgvhb: Testing | | | | | | performed at [facility], [address] | | | | | | [address] [place] | | | | | | [address] | | | | + + + [...] [facility] | [address] | [place] [address] | [phone] | + + + + + Urinalysis [...] - 1.030 | [facility] | | | [place], | | | LABORATORY | | | [...] | | Urine | performed at [facility], [address] | | LABORATORY | | | | [address], | | | | | | [place] [address] | | | | + + + [...] | + + + + + | [facility] | [address] | [place] [address] | [phone] | + + + + + Sodium, Urine, Random (12/24/2019 12:45 PM PDT) + + + + + + | Component | Value | Ref Range | Performed | Pathologist | | | | | At | Signature | + + + + + + | Sodium, | 52Comment: NO NORMAL | mmol/L | [facility] | | | Random | RANGE ESTABLISHEDTesting | | LABORATORY | | | urine | performed at [facility], [address] | | | | | [address], | | | | | | [place] [address] | | | | + + + [...] | + + + + + | [facility] | [address] | [place] [address] | [phone] | + + + + + Lactic Acid (12/24/2019 12:27 PM PDT) + + + + + + | Component | Value | Ref Range | Performed | Pathologist | | | | | At | Signature | + + + + + + | Lactate, | 1.6Comment: Testing | 0.4 - 2.0 | [facility] | | | Serum | performed at [facility];[address] | mmol/L | LABORATORY | | | [address];[place], [place] | | | | | | [address] | | | | + + + + + + + + | Specimen | + + | Blood | + + + + + + + | Performing | Address | City/State/Zipcode | Phone Number | | Organization | | | | + + + + + | [facility] | [address] | [place] [address] | [phone] | + + + + + CBC [...] LABORATORY | | | | performed at [facility];[address] | | | | | | [address];[place] | | | | | | [address] | | | | + + + + + + + + | Specimen | + + | Blood | + + + + + + + | Performing | Address | City/State/Zipcode | Phone Number | | Organization | | | | + + + + + | [facility] | [address] | [place] [address] | [phone] | + + + + + Phosphorus (12/23/2019 4:04 AM PDT) + + + + + + | Component | Value | Ref Range | Performed | Pathologist | | | | | At | Signature | + + + + + + | Phosphorus | 4.6Comment: Testing | 2.3 - 4.8 mg/dL | ALEX | | | | performed at [facility];[address] | | LABORATORY | | | | [address];[place], [place] | | | | | | [address] | | | | + + + + + + + + | Specimen | + + | Blood | + + + + + + + | Performing | Address | City/State/Zipcode | Phone Number | | Organization | | | | + + + + + | [facility] | [address] | [place] [address] | [phone] | + + + + + Hemoglobin (12/22/2019 9:37 PM PDT) + + + + + + | Component | Value | Ref Range | Performed | Pathologist | | | | | At | Signature | + + + + + + | Hemoglobin | 9.1 (L)Comment: Testing | 13.2 - 17.0 | KR | | | | performed at [facility];888 | g/dL | LABORATORY | | | | [address];[place], [place] | | | | | | [address] | | | | + + + + + + + + | Specimen | + + | Blood | + + + + + + + | Performing | Address | City/State/Zipcode | Phone Number | | Organization | | | | + + + + + | [facility] | [address] | [place] [address] | [phone] | + + + + + Hematocrit (12/22/2019 9:37 PM PDT) + + + + + + | Component | Value | Ref Range | Performed | Pathologist | | | | | At | Signature | + + + + + + | Hematocrit | 27.4 (L)Comment: Testing | 39.0 - 50.0 % | KR | | | | performed at [facility];[address] | | LABORATORY | | | | [address];[place] | | | | | | [address] | | | | + + + + + + + + | Specimen | + + | Blood | + + + + + + + | Performing | Address | City/State/Zipcode | Phone Number | | Organization | | | | + + + + + | [facility] | [address] | [place] [address] | [phone] | + + + + + Red [...] (LL)Comment: Testing | 13.7 - 16.7 | [facility] | | | POC | performed at [facility];888 | g/dL | LABORATORY | | | | [address];[place], [place] | | | | | | [address] | | | | + + + + + + + + | Specimen | + + | | + + + + + + + | Performing | Address | City/State/Zipcode | Phone Number | | Organization | | | | + + + + + | [facility] | [address] | [place] [address] | [phone] | + + + + + Airway [...] | | | POC | performed at [facility];888 | g/dL | LABORATORY | | | | [address];[place] | | | | | | [address] | | | | + + + + + + + + | Specimen | + + | | + + + + + + + | Performing | Address | City/State/Zipcode | Phone Number | | Organization | | | | + + + + + | [facility] | [address] | [place] [address] | [phone] | + + + + + LABS [...] Mercedez Jensen | PACEART | | Herson, Print Traffic Manager 11/12/2019 4:50 [facility] | | | INTERROGATION REPORT Name: Andres Guzmán PCP: Barbara Elkins | | | MD Mukul : 1930MRN: [id number] Primary cardiology | | | provider: Charlee Oswald Primary electrophysiology provider: Enoch | | | Jay Device mechanical development engineer: Gobooks Device type: Single | | | chamber [...] + + | Performing | Address | City/State/[facility] | Phone Number | | Organization [...] +--------+ +---------+--------+ | MEDICARE | MEDICA | [id number] | 04/21/19 | [phone] | | Medica | | | RE | | 97-Pre | 5 | | re | | | PART A | | sent | | | | | | AND B | | | | | | + +--------+ +--------+ +---------+--------+ | INDIVIDUAL ASSURANCE | INDIVI | [id number] | | | | Indemn | | [...] Robert | al/Fam | | 1930 | [phone] | [place] | | | quique | | | 1 (Home) | [address] | + +--------+ +--------+ + + Advance Directives + + + + + | Type | Date Recorded | Patient | Explanation | | | | Manager Trust | | + + + + + | Power of | | | | | Newscast Producer | | | | + + + [...]
--- OUTSIDE RECORDS SUMMARY | ~2020-01-27 | XMS | Encounter Summary ---
Demographics + + + | Address | [address] | | | [place] [address] | + + + | Home Phone | | + + + | Preferred Language | Unknown | + + + | Marital Status | | + + + | Restorationist Affiliation | 1001 | + + + | Race | Unknown | + + + | Ethnic Group | Unknown | + + + Author + + + | Author | [facility] | | | and [place] | + + + | Organization | [facility] | | | and [...] [place] | | | | | [address] | | + + + + + | Deanna Lawson | ECON | Unknown | | + + + + + Care Team Providers + +------+ + | Care Patient Financial Coordinator Name | Role | Phone | + +------+ + | Barbara Gilman MD | PCP | | + +------+ + Encounter Details +--------+ + + + + | Date | Type | Department | Care Team | Description | +--------+ + + + + | 04/01/ | Orders Only | [facility] | Tristan Rajput, | | | 2018 | | [facility] | [address] | | | | | [address] [place] | [address] | | | | | [address] [facility] [place] | [place] | | | | | [address] | [address] | | | | | [phone] | | | | | | | [...] | Visit | | [address] [facility] [place] | | | | | | [address] [place] | | | | | | [address] | | | | | | | | +--------+ + + + + | 02/05/ | Office | Cardiology | Dina Sanchez DO | | | 2019 | Visit | | [address] | | | | | | [place] | | | | | | [address] | | | | | | | [...] | | | | | [address] [place], | | | | | | [place] [address] | | | | | | [phone] | | | | | | | | +--------+ + + + + | 03/09/ | Office | Nephrology | Isiah Jade MD | | | 2019 | Visit | | [address] [facility] | | | | | | [address] [place] | | | | | | [address] | | | | | | | [...] + + + | Red Blood | 2.74 (A) | 4.3 - 5.7 [...] | | | LAB | | | [facility] | | | | | + + [...]
--- OUTSIDE RECORDS SUMMARY | ~2020-01-27 | XMS | Encounter Summary ---
Demographics + + + | Address | [address] | | | [place] [address] | + + + | Home Phone [...] [place] | | | | | [address] | | + + + + + | Deanna Lawson | ECON | Unknown | | + + + + + Care Team Providers + +------+ + | Care Otolaryngology Rep Name | Role | Phone | + +------+ + | Barbara Gilman MD | PCP | | + +------+ + Encounter Details +--------+ + + + + | Date | Type | Department | Care Team | Description | +--------+ + + + + | 01/20/ | Hospital | [facility] | Melquiades Baez | Right hip pain | | 2019 | Encounter | CELESTE XRAY [address] | DO [address] | | | | | [address] | [address] [place], | | | | | [place], [place] | [place] [address] | | | | | [address] | [phone] | | | | | [phone] | | | +--------+ + + + [...] 2019 | Visit | | [address] [facility] | | | | | | [address] [place] | | | | | | [address] | | | | | | | | +--------+ + + + + | 02/05/ | Office | Cardiology | Dina Sanchez DO | | | 2019 | Visit | | [address] | | | | | | [place] | | | | | | [address] | | | | | | | | +--------+ + + + + | 02/09/ | Procedure | Cardiology | | | | 2019 | visit | | | | +--------+ + + + + | 02/17/ | Office | Orthopedic Surgery | Melquiades Baez | | | 2019 | Visit | | [address] | | | | | | [facility], | | | | | | [place] [address] | | | | | | [phone] | | | | | | | | +--------+ + + + + | 03/09/ | Office | Nephrology | Isiah Jade MD | | | 2019 | Visit | | [address] [facility] | | | | | | [address] [place] | | | | | | [address] | | | | | | | [...] Baez DO has created this entry using Merchant Exchange | | | Recognition software and [employer]. The entry has been reviewed | | | and there may still exist sound alike word errors. | | | | | |Electronically signed by: Melquiades Baez DO 01/24/2020 1:05 PM | | | | | | | | |Melquiades Baez DO has created this entry using Merchant Exchange | | |Recognition software and Blippar macros. The entry has been reviewed and [...]
--- OUTSIDE RECORDS SUMMARY | ~2020-01-27 | XMS | Encounter Summary ---
Demographics + + + | Address | [address] | | | [place] [address] | + + + | Home Phone | | + + + | Preferred Language | Unknown | + + + | Marital Status | | + + + | Latter-Day Affiliation | 1001 | + + + | Race | Unknown | + + + | Ethnic Group | Unknown | + + + Author + + + | Author | [facility] | | | and [place] | + + + | Organization | [facility] | | | [...] [place] | | | | | [address] | | + + + + + | Deanna Lawson | ECON | Unknown | | + + + + + Care Team Providers + +------+ + | Care Answering Service Telephone Operator Name | Role | Phone | [...] | | Required | | atrial | ENTERTAINMENT DIRECTOR [address] | 19 | | | | | fibrillation | [place] | [place] | | | | | (HCC) | [place] [address] | [address] | | | | | Moderate to | [place], [place] | [address] | | | | | severe | [address] | [place] | | | | | pulmonary | Phone: | [address] Phone: | | | | | hypertension | [phone] | [phone] | | | | | (HCC) Risk | Fax: | Fax: | | | | | factors for | [phone] | [phone] | | | | | obstructive | [...] + + | 10/27/ | Office | [facility] | Charlee Oswald | 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 Dorsey at [facility] , call [phone] for an appoi ntment next week I will have you establish care with Dr. Sanchez who will be your cloud solutions architect See me back in 4 weeks documented in this encounter Progress Notes Charlee Oswald FNP - 10/28/2019 10:00 AM PDTFormatting of this note might be differe nt from the original. Date of visit: 10/28/2019 Primary Care Physician: Barbara Gilman MD CHIEF COMPLAINT: Chief Complaint Patient presents with Follow-up, Office Visit 4 month w/Echo HISTORY OF PRESENT ILLNESS: Mr. Andres Guzámn is an 89-year-old man who is here [...] cirrhosis which is also followed by the [facility], though liver enzymes normal . He was previously diagnosed with sleep apnea by the NH, but updated sleep study performed by the [facility] in 2018 was reported by him as being negative His ZRF3YC9- VASC score is 6( HTN, age, stroke, [...] recreational or illicit drug use. Exercises with [employer] and yard work, tolerates without chest pain or dyspnea. 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 Also worked for a [employer] company and then a [employer], but now just enjoys his leisure ti [...] or rhonchi noted, respirations unlab ored HEART: [facility] pacemaker site well Healed, stable [...] : 02/04/2019: ( Dr. Thompson) : new HappyBox Accolade MRI com patible model L310, serial #[id number] pacemaker. The current lead is a HappyBox model 4136, serial #[id number].Mode for pacing, VVIR with dual-sensor technology programmed on. T he lower rate will be 60 and upper rate 120beats per minute. The output will be 2 volts at 0.4 milliseconds with sensitivity of 2.5 millivolts. Pacing and sensing will be bipolar Previous Implant Pacemaker/ICD: 07/30/2010, SYDNEE Kinsey S601, SN: [id number]. [facility]. Addendum: Last [...] function was seen today for th is [employer] single-chamber device. The pacing threshold was [...] 15 mmHg. Normal pulmonic valve with mild MN. Sinus of Valsalva dilated about 4.26 cm, [...] change, except less pulmonar y hypertension Echo:07/26/2017: [facility]: EF >70 percent. LV normal [...] 75,TOTAL BILI 0.6,ALB 3.9 Labs: 02/18/2018: ([facility]). CBC: WBC 6.2, RBC [...] 73. Thyroid: TSH 3.55 Labs: 08/23/2018: ( [facility]): CBC: WBC 6.6, RBC 2.92, [...] stopped, as he has a very high GSK0OL3- VASC sco re of 6. For his [...] apnea evaluation with Dr. Dorsey at the [facility] sleep disorders clinic due to his now severe pulmonary hypertension. He also has an appointment with his just Dr. Jade on March 09. He states his local PCP is Rosa Elena Goodrich, but I am unable to get [facility] , so I will send copy of [...] contain inadvertent rec ognition errors. Maximilian MCCONNELL [facility] Cardiology 10/28/2019 Ubaldo gregory in this encounter Plan of Treatment +--------+ + + + + | Date | Type | Specialty | Care Team | Description | +--------+ + + + + | 01/29/ | Office | Nephrology | Isiah Jade MD | | | 2019 | Visit | | [address] [facility] | | | | | | [address] [place] | | | | | | [address] | | | | | | | | +--------+ + + + + | 02/05/ | Office | Cardiology | Dina Sanchez DO | | | 2019 | Visit | | [address] | | | | | | [place] | | | | | | [address] | | | | | | | [...] | | | [address] [facility] [place], | | | | | | [place] [address] | | | | | | [phone] | | | | | | | | +--------+ + + + + | 03/09/ | Office | Nephrology | Isiah Jade MD | | | 2019 | Visit | | [address] [facility] | | | | | | [address] [place] | | | | | | [address] | | | | | | | [...]
--- OUTSIDE RECORDS SUMMARY | ~2020-01-27 | XMS | Encounter Summary ---
Demographics + + + | Address | [address] | | | [place] [address] | + + + | Home Phone [...] [place] | | | | | [address] | | + + + + + | Deanna Lawson | ECON | Unknown | | + + + + + Care Team Providers + +------+ + | Care Tool Tender Name | Role | Phone | [...] + + | 12/21/ | Anesthesia | [facility] | [place], | | | 2019 | Event | [facility] | [address] [place] [address] | | | | | OPER[address] | [place] [address] | | | | | [address] | [phone] | | | | | [place] | | | | | | [address] | | | | | | [phone] | | | +--------+ + + + [...] +----+---+ + + | | 0 | [place] | | | | 9 | 43-degrees [...] Savana [place] RN | | IV | ydif-hfo-wlpegp catheter system; | | | | | [...] 2019 | Visit | | [address] [facility] | | | | | | [address] [place] | | | | | | [address] | | | | | | | | +--------+ + + + + | 02/05/ | Office | Cardiology | Dina Sanchez DO | | | 2019 | Visit | | [address] | | | | | | [place] | | | | | | [address] | | | | | | | [...] | | | | | | [place] [address] | | | | | | [phone] | | | | | | | | +--------+ + + + + | 03/09/ | Office | Nephrology | Isiah Jade MD | | | 2019 | Visit | | [address] [facility] [place] | | | | | | [address] [place] | | | | | | [address] | | | | | | | [...] 8:57 | | | | | Starting [place] 12/22/19 at 0857, | | AM PDT | | | | | Anesthesia Intra-op | | | | | | + +-------+ +------+---+---+ +---+---+ | | | +---+---+ + +-------+ +-------+---+---+ | ePHEDrine in saline 5 mg/mL IV | Given | 12/22/19 | 10 mg | | | | syringe Intravenous, PRN, | | 20 9:12 | | | | | Starting [place] 12/22/19 at 0912, | | AM PDT [...]
--- OUTSIDE RECORDS SUMMARY | ~2020-01-27 | XMS | Encounter Summary ---
Demographics + + + | Address | [address] | | | [place] [address] | + + + | Home Phone | | + + + | Preferred Language | Unknown | + + + | Marital Status | | + + + | Shinto Affiliation | 1001 | + + + | Race | Unknown | + + + | Ethnic Group | Unknown | + + + Author + + + | Author | [facility] | | | and [place] | + + + | Organization | [facility] | | | [...] [place] | | | | | [address] | | + + + + + | Deanna Lawson | ECON | Unknown | | + + + + + Care Team Providers + +------+ + | Care Fast Food Services Manager Name | Role | Phone | + +------+ + | Barbara Gilman MD | PCP | | + +------+ + Encounter Details +--------+ + + + + | Date | Type | Department | Care Team | Description | +--------+ + + + + | 01/20/ | Hospital | [facility] | Melquiades Baez | Right hip pain | | 2019 | Encounter | CELESTE XRAY 1351 | DO [address] | | | | | [address] | [address] [place], | | | | | [place], [place] | [place] [address] | | | | | [address] | [phone] | | | | | [phone] | | | +--------+ + + + [...] [place] | | | | | | [address] | | | | | | | | +--------+ + + + + | 02/05/ | Office | Cardiology | Dina Sanchez DO | | | 2019 | Visit | | [address] | | | | | | [place] | | | | | | [address] | | | | | | | [...] | | | | | [facility], | | | | | | [place] [address] | | | | | | [phone] | | | | | | | | +--------+ + + + + | 03/09/ | Office | Nephrology | Isiah Jade MD | | | 2019 | Visit | | [address] [facility] | | | | | | [address] [place] | | | | | | [address] | | | | | | | [...] Baez DO has created this entry using Vartopia | | | Recognition software and Runteq. The entry has been reviewed | | | and there may still exist sound alike word errors. | | | | | |Electronically signed by: Melquiades Baez DO 01/24/2020 1:05 PM | | | | | | | | |Melquiades Baez DO has created this entry using Vartopia | | |Recognition software and HashCube macros. The entry has been reviewed and [...]
--- OUTSIDE RECORDS SUMMARY | ~2020-01-27 | XMS | Encounter Summary ---
Demographics + + + | Address | [address] | | | [place] [address] | + + + | Home Phone [...] [place] | | | | | [address] | | + + + + + | Deanna Lawson | ECON | Unknown | | + + + + + Care Team Providers + +------+ + | Care Construction Ironworker Name | Role | Phone | + [...] Provider Unknown | | | | | [place], [place] | | | | | | [address] | (Fax) | | | | | [phone] | | | +--------+ + + + [...] [place] | | | | | | [address] | | | | | | | | +--------+ + + + + | 02/05/ | Office | Cardiology | Dina Sanchez DO | | | 2019 | Visit | | [address] | | | | | | [place] | | | | | | [address] | | | | | | | [...] | | | | | [facility], | | | | | | [place] [address] | | | | | | [phone] | | | | | | | | +--------+ + + + + | 03/09/ | Office | Nephrology | Isiah Jade MD | | | 2019 | Visit | | [address] [facility] | | | | | | [address] [place] | | | | | | [address] | | | | | | | [...]
--- OUTSIDE RECORDS SUMMARY | ~2020-01-27 | XMS | Encounter Summary ---
Demographics + + + | Address | [address] | | | [place] [address] | + + + | Home Phone [...] [facility] | | | and [...] [place] | | | | | [address] | | + + + + + | Deanna Lawson | ECON | Unknown | | + + + + + Care Team Providers + +------+ + | Care Hand Knitter Name | Role | Phone | + [...] + + | 08/12/ | Procedure | [facility] | | Cardiac pacemaker in | | 2019 | visit | CARDIOLOGY [place] | | situ (Primary Dx) | | | | [address] | | | | | | [place] | | | | | | [address] | | | | | | [phone] | | | +--------+ + + + [...] 2020 | Visit | | [address] [facility] | | | | | | [address] [place], [place] | | | | | | [address] | | | | | | | | +--------+ + + + + | 02/05/ | Office | Cardiology | Dina Sanchez DO | | | 2019 | Visit | | [address] | | | | | | [place] | | | | | | [address] | | | | | | | [...] | | | | | | [place] [address] | | | | | | [phone] | | | | | | | | +--------+ + + + + | 03/09/ | Office | Nephrology | Isiah Jade MD | | | 2019 | Visit | | [address] [facility] | | | | | | [address] [place] | | | | | | [address] | | | | | | | [...] Mercedez Jensen | LUCA | | Herson Animal Behaviourist 08/12/2019 4:09 [facility] | | | INTERROGATION REPORT Name: Andres Guzmán PCP: Barbara Elkins | | | MD Mukul : 1930MRN: [id number] Primary cardiology | | | provider: Charlee Oswald Primary electrophysiology provider: Enoch | | | Jay Device receiver bulk system: Oxley's Extra Device type: Single | | | chamber [...]
--- OUTSIDE RECORDS SUMMARY | ~2020-01-27 | XMS | Encounter Summary ---
Demographics + + + | Address | [address] | | | [place] [address] | + + + | Home Phone | | + + + | Preferred Language | Unknown | + + + | Marital Status | | + + + | Yarsanism Affiliation | 1001 | + + + [...] [place] | | | | | [address] | | + + + + + | Deanna Lawson | ECON | Unknown | | + + + + + Care Team Providers + +------+ + | Care Change Management Administrator Name | Role | Phone | + +------+ + | Barbara Gilman MD | PCP | | + +------+ + Reason for Visit +--------+ + | Reason | Comments | +--------+ + | Other | Hospital F/U | +--------+ + Encounter Details +--------+ + + + + | Date | Type | Department | Care Team | Description | +--------+ + + + + | 01/02/ | Telephone | [facility] | Isiah Jade MD | Other ([facility] F/U | | 2020 | | NEPHROLOGY [place] | [address] [place] | ) | | | | [address] [place] | [address] [place], [place] | | | | | [address] [place], [place] | [address] | | | | | [address] | | | | | | [phone] | | | +--------+ + + + [...] [place] | | | | | | [address] | | | | | | | | +--------+ + + + + | 02/05/ | Office | Cardiology | Dina Sanchez DO | | | 2019 | Visit | | [address] | | | | | | [place] | | | | | | [address] | | | | | | | | +--------+ + + + + | 02/09/ | Procedure | Cardiology | | | | 2019 | visit | | | | +--------+ + + + + | 02/17/ | Office | Orthopedic Surgery | Melquiades Baez | | | 2019 | Visit | | [address] | | | | | | [facility], | | | | | | [place] [address] | | | | | | [phone] | | | | | | | | +--------+ + + + + | 03/09/ | Office | Nephrology | Isiah Jade MD | | | 2019 | Visit | | [address] [facility] | | | | | | [address] [place] | | | | | | [address] | | | | | | | | +--------+ + + + + documented as of this encounter Visit Diagnoses Not on filedocumented in this encounter"
--- OUTSIDE RECORDS SUMMARY | ~2020-01-27 | XMS | Encounter Summary ---
Demographics + + + | Address | [address] | | | [place] [address] | + + + | Home Phone [...] [place] | | | | | [address] | | + + + + + | Deanna Lawson | ECON | Unknown | | + + + + + Care Team Providers + +------+ + | Care Logistics Operations Director Name | Role | Phone | + +------+ + | Barbara Gilman MD | PCP | | + +------+ + Encounter Details +--------+ + + + + | Date | Type | Department | Care Team | Description | +--------+ + + + + | 04/01/ | Orders Only | [facility] | Tristan Rajput, | | | 2018 | | [facility] | [address] [address] | | | | | [address] | [address] | | | | | [address] [facility] [place] | [place] | | | | | [address] | [address] | | | | | [phone] | [phone] | | | | | | | [...] 2019 | Visit | | [address] [facility] [place] | | | | | | [address] [place] | | | | | | [address] | | | | | | | | +--------+ + + + + | 02/05/ | Office | Cardiology | Dina Sanchez DO | | | 2019 | Visit | | [address] | | | | | | [place] | | | | | | [address] | | | | | | | [...] | | | | | [address] [place], | | | | | | [place] [address] | | | | | | [phone] | | | | | | | | +--------+ + + + + | 03/09/ | Office | Nephrology | Isiah Jade MD | | | 2019 | Visit | | [address] [facility] | | | | | | [address] [place] | | | | | | [address] | | | | | | | [...] | | | LAB | | | GUINE[place] | | | | | + + [...]
--- OUTSIDE RECORDS SUMMARY | ~2020-01-27 | XMS | Encounter Summary ---
Demographics + + + | Address | [address] | | | [place] [address] | + + + | Home Phone [...] [place] | | | | | [address] | | + + + + + | Deanna Lawson | ECON | Unknown | | + + + + + Care Team Providers + +------+ + | Care Sales Promoter Name | Role | Phone | + [...] + + | 01/05/ | Documentati | [facility] | [place], | Other (Dr. Jade | | 2020 | on | NEPHROLOGY JESSI | Hallie [facility] | orders) | | | | [address] | Qa Manager | | | | | [address] [place], [place] | | | | | | [address] | | | | | | [phone] | | | +--------+ + + + [...] 2019 | Visit | | [address] [facility] | | | | | | [address] [place] | | | | | | [address] | | | | | | | | +--------+ + + + + | 02/05/ | Office | Cardiology | Dina Sanchez DO | | | 2019 | Visit | | [address] | | | | | | [place] | | | | | | [address] | | | | | | | [...] | | | | | | [place] [address] | | | | | | [phone] | | | | | | | | +--------+ + + + + | 03/09/ | Office | Nephrology | Isiah Jade MD | | | 2019 | Visit | | [address] | | | | | | [address] [place] | | | | | | [address] | | | | | | | | +--------+ + + + + documented as of this encounter Visit Diagnoses Not on filedocumented in this encounter"
--- OUTSIDE RECORDS SUMMARY | ~2020-01-27 | XMS | Encounter Summary ---
Demographics + + + | Address | [address] | | | [place] [address] | + + + | Home Phone [...] [place] | | | | | [address] | | + + + + + | Deanna Lawson | ECON | Unknown | | + + + + + Care Team Providers + +------+ + | Care Lard Bleacher Name | Role | Phone | + +------+ + | Barbara Gilman MD | PCP | | + +------+ + Encounter Details +--------+ + + + + | Date | Type | Department | Care Team | Description | +--------+ + + + + | 01/03/ | Orders Only | [facility] | Lamont Acuña MD | | | 2020 | | GASTROENTEROLOGY | [address] | | | | | [address] | [place], [place] | | | | | [place], [place] | [address] | | | | | [address] | [phone] | | | | | [phone] | | | +--------+ + + + [...] | Visit | | [address] [facility] | | | | | | [address] [place] | | | | | | [address] | | | | | | | | +--------+ + + + + | 02/05/ | Office | Cardiology | Dina Sanchez DO | | | 2019 | Visit | | [address] | | | | | | [place] | | | | | | [address] | | | | | | | [...] | | | | | | [place] [address] | | | | | | [phone] | | | | | | | | +--------+ + + + + | 03/09/ | Office | Nephrology | Isiah Jade MD | | | 2019 | Visit | | [address] | | | | | | [address] [place] | | | | | | [address] | | | | | | | | +--------+ + + + + documented as of this encounter Visit Diagnoses Not on filedocumented in this encounter"
--- OUTSIDE RECORDS SUMMARY | ~2020-01-27 | XMS | Encounter Summary ---
Demographics + + + | Address | [address] | | | [place] [address] | + + + | Home Phone [...] [place] | | | | | [address] | | + + + + + | Deanna Lawson | ECON | Unknown | | + + + + + Care Team Providers + +------+ + | Care Slurry Tank Tender Name | Role | Phone | [...] + | 11/27/ | Virtual | 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 His current and previous testing and [...] his apixaban had been stopped by the PA for increased anemia but had noted that [...] also received documentation dated June from the PA which noted they had stopped api xaban [...] recreational or illicit drug use. Exercises with [employer] and yard work, tolerates without chest pain or dyspnea. 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 Thompson) : new Narrative AccLancopede MRI com patible model L310, serial #[id number] pacemaker. The current lead is a Narrative model 4136, serial #[id number].Mode for pacing, VVIR with dual-sensor technology programmed on. T he lower rate will be 60 and upper rate 120beats per minute. The output will be 2 volts at 0.4 milliseconds with sensitivity of 2.5 millivolts. Pacing and sensing will be bipolar Previous Implant Pacemaker/ICD: 07/30/2010, BS [employer] S601, SN: [id number]. [facility]. Last pacer interrogation: 11/11/2019: Battery longevity 9 years. Pacer dependent. RV paci n%. No atrial lead, unable to monitor burden of atrial fibrillation. No ventricular high rate episodes. Lead impedance and threshold values acceptable. CHF parameters and ethan nds reviewed and stable. pacer interrogation: 05/07/2019: ( Dr. Thompson) : Normal device function was seen today for th is [employer] single-chamber device. The pacing threshold was [...] 15 mmHg. Normal pulmonic valve with mild W[place]. Sinus of Valsalva dilated about 4.26 cm, [...] change, except less pulmonar y hypertension Echo:07/26/2017: [facility]: EF >70 percent. LV normal [...] PHS 75,TOTAL BILI 0.6,ALB 3.9 Labs: 02/18/2018: ([facility]). CBC: WBC 6.2, RBC 3.46, [...] Cholesterol 99, HDL 36, LDL 48, triglycer yulias 73. Thyroid: TSH 3.55 Labs: 08/23/2018: ( [facility]): CBC: WBC 6.6, RBC 2.92, hemoglobin [...] atrial fi b with a very high FLB3LY9- VASC score of 6. For his cardiac [...] with Dr. Dina Sanchez 01/22/[address] design engineer, as well as seeing me. I also referred him for sleep apnea evaluation with Dr. Dorsey at the [facility] sleep disorders clinic due to his now [...] for continuity of care purp nettie MCCONNELL [facility] Cardiology 11/28/2019 Ubaldo gregory in this encounter Plan of Treatment +--------+ + + + + | Date | Type | Specialty | Care Team | Description | +--------+ + + + + | 01/29/ | Office | Nephrology | Isiah Jade MD | | | 2019 | Visit | | [address] [facility] | | | | | | [address] [place] | | | | | | [address] | | | | | | | | +--------+ + + + + | 02/05/ | Office | Cardiology | Dina Sanchez DO | | | 2019 | Visit | | [address] | | | | | | [place] | | | | | | [address] | | | | | | | [...] | | | | | [place], | | | | | | [place] [address] | | | | | | [phone] | | | | | | | | +--------+ + + + + | 03/09/ | Office | Nephrology | Isiah Jade MD | | | 2019 | Visit | | [address] [facility] | | | | | | [facility] | | | | | | [address] | | | | | | | [...]
--- OUTSIDE RECORDS SUMMARY | ~2020-01-27 | XMS | Encounter Summary ---
Demographics + + + | Address | [address] | | | [place] [address] | + + + | Home Phone [...] [place] | | | | | [address] | | + + + + + | Deanna Lawson | ECON | Unknown | | + + + + + Care Team Providers + +------+ + | Care Inner Tube Inserter Name | Role | Phone | + +------+ + PCP | Unavailable | + +------+ + Encounter Details +--------+ + + + + | Date | Type | Department | Care Team | Description | +--------+ + + + + | 02/04/ | Hospital | [facility] | Conversion | Presence of cardiac | | 2019 | Encounter | CENTER CV INTRA OP | Transaction, | pacemaker; Permanent | | | | [address] | Provider Unknown | atrial fibrillation | | | | [place], [place] | [phone] | (HCC); Chronic | | | | [address]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 | | | | [phone] | Enoch Marks MD | failure ([facility]); | | | | | [address] | Pacemaker at end of | | | | | [place], [place] | battery life | | | | | [address] | | | | | | | [...] Note by Sendy Smith RN at 02/04/19 4153 Author: Sendy Smith RN Service: General Surgery Author Type: Registered Nurse Filed: 02/04/19 1161 Date of Service: 02/04/191429 Status: Signed Pecan Picker: Sendy Smith RN (Registered Nurse) Patient discharged [...] 2019 | Visit | | [address] [facility] | | | | | | [address] [place], [place] | | | | | | [address] | | | | | | | | +--------+ + + + + | 02/05/ | Office | Cardiology | Dina Sanchez DO | | | 2019 | Visit | | [address] | | | | | | [place] | | | | | | [address] | | | | | | | [...] | | | | | | [place] [address] | | | | | | [phone] | | | | | | | | +--------+ + + + + | 03/09/ | Office | Nephrology | Isiah Jade MD | | | 2019 | Visit | | [address] [facility] | | | | | | [address] [place], [place] | | | | | | [address] | | | | | | | [...] will be seen in one week in [place] | | | by ENEDINA Bo. Read [...] | | indicator status. It is a [employer] pacemaker that was | | | placed on 07/30/2010, because of heart block in the context of | | | permanent atrial fibrillation. He has felt poorly over the last few | | | weeks since the device went into an MIRIAN mode. The current lead is | | | a [employer] model 4136, serial #[id number]. The current | | | pacemaker is a [employer] model S601, serial #[id number]. He is | | | anticoagulated and [...] The lead was attached to a new [employer] | | | Accolade MRI compatible model L310, serial #[id number] pacemaker. That | | | device was [...] indicator | | status. It is a [employer] pacemaker that was placed on 07/30/2010, | | because of heart block in the context of permanent atrial fibrillation. He | | has felt poorly over the last few weeks since the device went into an MIRIAN | | mode. The current lead is a [employer] model 4136, serial | | #[id number]. The current pacemaker is a [employer] model S601, serial | | #[id number]. He is anticoagulated and the last dose [...] The lead was attached to a new [employer] | | Accolade MRI compatible model L310, serial #[id number] pacemaker. That device | | was placed [...] seen in one | | week in [place] by ENEDINA Bo. | | | | [...] | | | Fingerstick | performed at [facility];[address] | | LAB | | | | [address]alia [address]cc[address];[place], [place] | | | | | | [address] | | | | + + + [...] | | | Basophils | performed at [facility];[address] | K/uL | LAB | | | | Rosalia Mccain;[place] | | | | | | [address] | | | | + + + [...] | | | | | performed at [facility];[address] | | | | | | [facility];[place], [place] | | | | | | [address] | | | | + + + [...]
--- OUTSIDE RECORDS SUMMARY | ~2020-01-27 | XMS | Encounter Summary ---
Demographics + + + | Address | [address] | | | [place] [address] | + + + | Home Phone [...] [place] | | | | | [address] | | + + + + + | Deanna Lawson | ECON | Unknown | | + + + + + Care Team Providers + +------+ + | Care Multimedia Manager Name | Role | Phone | + +------+ + | Barbara Gilman MD | PCP | | + +------+ + Encounter Details +--------+ + + + + | Date | Type | Department | Care Team | Description | +--------+ + + + + | 01/11/ | Orders Only | [facility] | Tristan Rajput, | | | 2018 | | NEPHROLOGY [place] | EXHAUST EMISSIONS AUTOMOTIVE TECHNICIAN [address] | | | | | [address] [facility] | [place] | | | | | [place] | [place] | | | | | [address] | [address] | | | | | [phone] | [phone] | | | | | | | [...] Visit | | [address] [facility] [place] | | | | | | [address] [place] | | | | | | [address] | | | | | | | | +--------+ + + + + | 02/05/ | Office | Cardiology | Dina Sanchez DO | | | 2019 | Visit | | [address] | | | | | | [place] | | | | | | [address] | | | | | | | [...] | | | | | [place], | | | | | | [place] [address] | | | | | | [phone] | | | | | | | | +--------+ + + + + | 03/09/ | Office | Nephrology | Isiah Jade MD | | | 2019 | Visit | | [address] [facility] | | | | | | [address] [place] | | | | | | [address] | | | | | | | [...]
--- OUTSIDE RECORDS SUMMARY | ~2020-01-27 | XMS | Encounter Summary ---
Demographics + + + | Address | [address] | | | [place] [address] | + + + | Home Phone [...] [place] | | | | | [address] | | + + + + + | Deanna Lawson | ECON | Unknown | | + + + + + Care Team Providers + +------+ + | Care Sculpture Instructor Name | Role | Phone | + +------+ + PCP | Unavailable | + +------+ + Encounter Details +--------+ + + + + | Date | Type | Department | Care Team | Description | +--------+ + + + + | 08/29/ | Orders Only | [facility] | Conversion | | | 2018 | | CARDIOLOGY OP[place]IA | Transaction, | | | | | [address] | Provider Unknown | | | | | [place], [place] | [phone] | | | | | [address] | | | | | | [phone] | | | +--------+ + + + [...] 2019 | Visit | | [address] [address] [facility] | | | | | | [address] [place] | | | | | | [address] | | | | | | | | +--------+ + + + + | 02/05/ | Office | Cardiology | Dina Sanchez DO | | | 2019 | Visit | | [address] | | | | | | [place] | | | | | | [address] | | | | | | | [...] | | | | | [place], | | | | | | [place] [address] | | | | | | [phone] | | | | | | | | +--------+ + + + + | 03/09/ | Office | Nephrology | Isiah Jade MD | | | 2019 | Visit | | [address] [facility] | | | | | | [address] [place] | | | | | | [address] | | | | | | | [...]
--- OUTSIDE RECORDS SUMMARY | ~2020-01-27 | XMS | Encounter Summary ---
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 No immediate indication for CONSTITUTIONAL LAW PROFESSOR. Patient was also seen by physical therapy and occupational therapy and was recommended for discharging to SNF. However patient will b e going to [facility] bed at this time. Patient also [...] No CVA tenderness, no spinal tenderness Disposition: [facility] Condition: Fair No discharge procedures [...] but not limited to, beer and wine. OCLT hose: Wear COLT hose until physician discontinues. [...] BUNCREARATIO 30 01/01/2020 PTH 72.57 (A) 04/01/2019 [id number] 25.2 (L) 12/27/2019 CALCIUM 8.6 01/01/2020 PHOS [...] been following up with ENEDINA mena in [place]. He has unrecovered acute kidney injury and a higher baseline creatinine. At this time there is no clinical uremia, refractory volume overload, refractory acidosis, refractory hyperkalemia and no urgent indication of starting CONSTITUTIONAL LAW PROFESSOR. Neither is there an indication for diagnostic [...] Incentive spirometry. Transfuse Prn. No indication for CONSTITUTIONAL LAW PROFESSOR for now. Await renal recovery. On discharge [...] was completed later after rounds. Dictation software, ZALORA, was used which may contain error for [...] but not limited to potential need for CONSTITUTIONAL LAW PROFESSOR . This is a patient with multiple [...] is DC'ing home; ride is waiting downstairs. eDanna Doe RN, CMSRN, [facility] Inpatient Wound Ostomy Care [phone] 01/01/2020 11:46 AM Savana Paula RN - 01/01/2020 6:34 AM PDTPt sleeping [...] BUNCREARATIO 25 12/31/2019 PTH 72.57 (A) 04/01/2019 [id number] 25.2 (L) 12/27/2019 CALCIUM 8.5 12/31/2019 PHOS [...] been following up with ENEDINA mena in [place]. He has unrecovered acute kidney injury and a higher baseline creatinine. At this time there is no clinical uremia, refractory volume overload, refractory acidosis, refractory hyperkalemia and no urgent indication of starting CONSTITUTIONAL LAW PROFESSOR. Neither is there an indication for diagnostic [...] Incentive spirometry. Transfuse Prn. No indication for CONSTITUTIONAL LAW PROFESSOR for now. Await renal recovery. I discussed [...] was completed later after rounds. Dictation software, ZALORA, was used which may contain error for [...] but not limited to potential need for CONSTITUTIONAL LAW PROFESSOR . This is a patient with multiple [...] Code Regino Greene MD 12/31/2019 11:38 AM mith, SAMRA YooP - 12/31/2019 10:58 AM PDT . ORTHOPEDIC [...] injuries: see wound RN note for treatment. [facility] ed, continue wound care at swing bed, send with extra dressing supplies. *Metabolic bone disorder: elevated PTH and phosphorus. Treatment per engine test cell technician (see thei r note). Subjective No chest [...] who was admitted as a transfer from [facility] due t o a mechanical [...] finding placement and he was accepted by [facility] in [place], [place] for rehabilitation purposes. Hospital stay was [...] Medications Current Facilty-Administered PRN Medications Ordered in Psychiatric Medication Dose Route Frequency Provider Last Rate [...] but remains week, he is accepted at [facility] in [place] with discharge plans tomorrow for rehabilit ation [...] plans to Swing Bed Program in [facility] tomorrow. DVT prophylaxis with SCD's only due to risks of bleeding. Discharge plans tomorrow to [facility] in [place], [place] for rehabi litation. Called his daughter Ms. Huerta and left a message with updated information at phone number [phone]. Jerry Chino MD 12/30/2019 Holden Ambrocio PA - 12/30/2019 12:35 PM PDTFormatting of this note might be different from the [facility] Service: Gastroenterology Consult Progress Note Hospital Day: LOS: 9 days SUBJECTIVE Patient Summary: This is an 89-year-old male with multiple medical problems and a his tory of hypertension, diabetes, CKD stage III who was transferred from [facility] t o a fall and [...] motor deficits. PSYCHIATRIC: Appropriate, affect appears normal [facility] Gastroenterology Patient Name: Andres Guzmán Procedure Date: [...] physician, the nurse, the anesthesiologist and the chemical laboratory technician in the pre-procedure area in [...] successful. Thermal coagulation with Gold probe 7 Jamaican x 5 pulses was successful with hemostasis. [...] 12/29/2019 8:36 AM Number of Addenda: 0 [facility] DATA Lab Results Component Value Date WBC [...] ll with any questions. Florina Cantu PA-C [facility] Gastroenterology 12/30/2019 Associated attestation - Lamont Hernandez MD - 12/31/2019 2:17 PM [id number] male with GI bleeding due to duodenal ulcer with visible vessel. The ulcer and visible vessel were tr eated with injection and gold probe thermal coagulation. The patient was seen and examined by me personally. The case was discussed with the physician's diploma medical assistant and I agree with the assessment and p tim as outlined in the note. Continue PPI IV infusion for total of 72 hours and then when patient is discharged he must be on twice daily PPI for 8 weeks. Resume Eliquis in 1 week. Lamont Hernandez MD Gastroenterology staffClint, SAMAR YooP - 12/30/2019 11:05 AM PDTFormatting of th [...] status. Disposition: Plan to discharge tomorrow, to Intermediate Facility, once medically stable and cleared by [...] - GAMMA NA IL (Right) on the 3 of [address] Baez. I assumed care [...] dinner dextrose 10% pantoprazole 8 mg/hr (12/30/19 0946) ROS: Review of systems is as per [...] BUNCREARATIO 23 12/30/2019 PTH 72.57 (A) 04/01/2019 [id number] 25.2 (L) 12/27/2019 CALCIUM 8.6 12/30/2019 PHOS [...] There was noted to be renal corti parshant thinning likely to represent medical renal disease. [...] been following up with ENEDINA mena in [place]. That had improved with nonoliguric state but now seems to have leveled off at around 3 and this may be reflection of unrecovered acute kidney injury and a higher baseline creatinine. At this time there is no clinical uremia, refractory volume overload, refractory acidosis, refractory hyperkalemia and no urgent indication of starting CONSTITUTIONAL LAW PROFESSOR. Neither is there an indication for diagnostic [...] Incentive spirometry. Transfuse Prn. No indication for CONSTITUTIONAL LAW PROFESSOR for now. Await renal recovery. I discussed [...] was completed later after rounds. Dictation software, ZALORA, was used which may contain error for [...] but not limited to potential need for CONSTITUTIONAL LAW PROFESSOR . This is a patient with multiple [...] BUNCREARATIO 30 12/29/2019 PTH 72.57 (A) 04/01/2019 [id number] 25.2 (L) 12/27/2019 CALCIUM 8.7 12/29/2019 PHOS [...] been following up with ENEDINA mena in [place]. That seems to be improving with nonoliguric state and small reduction in creatinine. At this time there is no clinical uremia, refractory volume overload, refractory acidosis, refractory hyperkalemia and no urgent indication of starting CONSTITUTIONAL LAW PROFESSOR. Neither is there an indication for diagnostic [...] Incentive spirometry. Transfuse Prn. No indication for CONSTITUTIONAL LAW PROFESSOR for now. Await renal recovery. I discussed [...] was completed later after rounds. Dictation software, ZALORA, was used which may contain error for [...] but not limited to potential need for CONSTITUTIONAL LAW PROFESSOR . acetaminophen 1,000 mg Oral 3 times [...] who was admitted as a transfer from [facility] due t o a mechanical [...] finding placement and he was accepted by [facility] in [place], [place] for rehabilitation purposes. Hospita l stay [...] but needs rehabilitation, he is accepted by [facility] in [place], [place] with discharge plans early next weeks [...] another 1 to 2 to SNF in [place], [place] if remains stable and improve d. Called his daughter Ms. Huerta and updated her about plans at phone number [phone]. Jerry Chino MD 12/29/2019 Norma Sarabia RN [...] BUNCREARATIO 28 12/28/2019 PTH 72.57 (A) 04/01/2019 [id number] 25.2 (L) 12/27/2019 CALCIUM 8.5 12/28/2019 PHOS [...] been following up with ENEDINA mena in [place]. That seems to be improving with nonoliguric state and small reduction in creatinine. At this time there is no clinical uremia, refractory volume overload, refractory acidosis, refractory hyperkalemia and no urgent indication of starting CONSTITUTIONAL LAW PROFESSOR. Neither is there an indication for diagnostic [...] Incentive spirometry. Transfuse Prn. No indication for CONSTITUTIONAL LAW PROFESSOR for now. Await renal recovery. I discussed [...] was completed later after rounds. Dictation software, ZALORA, was used which may contain error for [...] but not limited to potential need for CONSTITUTIONAL LAW PROFESSOR . acetaminophen 1,000 mg Oral 3 times [...] DALILA Grant - 12/28/2019 10:49 AM PDT [facility] Service: Orthopedic Surgery Progress Note Hospital Day: [...] DALILA Peralta has created this entry using Flin[employer] Recognition medineering e and [employer] macros. The entry has been reviewed and there may still exist sound alike word errors. ashmi, Jerry Malik MD - 12/28/2019 8:56 AM PDTFormatting of [...] who was admitted as a transfer from [facility] due t o a mechanical [...] finding placement and he was accepted by [facility] in [place], [place] for rehabilitation purposes. Hospita l stay [...] making slow progress, he is accepted by [facility] in [place], [place] with discharge plans possib ly early [...] 1 to 2 to a SNF in [place], [place] when renal functions are st able and cleared by Nephrology services. Also called his daughter Ms. Huerta and updated her a bout plans at phone number [phone]. Jerry Chino MD 12/28/2019 Ghazal Ferrer COTA - 12/27/2019 4:15 PM PDT MISSED OCCUPATIONAL THERAPY VISIT: Therapy attempted to see the following patient today: Andres Guzmán Missed Visit (treatment on hold) The reason for the missed visit was: pt supine in bed upon MILL BEAM FITTER arrival. Pt jsut recieving 2 units of [...] been following up with ENEDINA mena in [place]. That seems to be improving with nonoliguric state and small reduction in creatinine. At this time there is no clinical uremia, refractory volume overload, refractory acidosis, refractory hyperkalemia and no urgent indication of starting CONSTITUTIONAL LAW PROFESSOR. Neither is there an indication for diagnostic [...] Incentive spirometry. Transfuse Prn. No indication for CONSTITUTIONAL LAW PROFESSOR for now. Await renal recovery. I discussed [...] was completed later after rounds. Dictation software, ZALORA, was used which may contain error for [...] but not limited to potential need for CONSTITUTIONAL LAW PROFESSOR . acetaminophen 1,000 mg Oral 3 times [...] mg Oral Daily with dinner dextrose 10% mith, Marycarmen Hubbard, BODY WELDER - 12/27/2019 11:03 AM PDT ORTHOPEDIC SURGERY [...] status. Disposition: Plan to discharge Monday, to Intermediate Facility, once medically stable a nd cleared [...] Net -400 ml . Treatment plan: per engine test cell technician; slowly improving. *Blood pressure: labile; See VS [...] disorder: elevated PTH and phosphorus. Treatment per engine test cell technician (see thei r note). Subjective No chest [...] who was admitted as a transfer from [facility] due t o a mechanical [...] trength and mobility. He is accepted by [facility] in [place], [place] and discharge is delayed due to [...] to 3 days to a SNF in [place], [place] when renal functions a re stable and cleared by Nephrology services. Jerry Chino MD 12/27/2019 Linda Montalvo RN - 12/26/2019 5:09 PM PDT [facility] Service: Wound Care Consult Note Hospital Day: [...] any additional questions. Linda Cedeno RN 17:16 arycarmen Judge ARNP - 12/26/2019 12:55 PM PDTFormatting of [...] This case has been discussed with Dr. Baze, JIAN and CM. Electronically signed by: ENEDINA Ramos, [...] who was admitted as a transfer from [facility] due t o a mechanical [...] Medications Current Facilty-Administered PRN Medications Ordered in Psychiatric Medication Dose Route Frequency Provider Last Rate [...] 4 mg 4 mg Oral Q6H PRN Anedrs Soto PA-C ondansetron (ZOFRAN) injection 4 mg [...] placement is recommended. 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 Huerta and the at phone number [phone] Code Status: Full Code Regino Greene MD 12/25/2019 9:02 PM Marycarmen Prak ARNP - 12/25/2019 1:01 PM PDT . [...] status. Disposition: Plan to discharge Monday, to Intermediate Facility, once medically stable a nd cleared [...] lab follow-up and treatment per hospitalist and engine test cell technician. *Blood pressure: hypotensive; See VS for BP trending. 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 Current Weight: 63.5 kg (140 lb) Admit Weight: 63.5 kg (140 lb) Biochemical Data, Medical Test, and Procedures Recent Labs 12/25/19 0425 12/25/19 042 NA 134* -- K 5.1* -- GLU [...] status post pacemaker placement: Telemetry advise dClaudy Sawant held because of soft blood pressures. [...] Dr. Huerta and the at phone number [phone] Code Status: Full Code Regino Greene MD 12/24/2019 7:10 PM mith, Marycarmen Hubbard , BODY WELDER - 12/24/2019 1:28 PM PDT . ORTHOPEDIC [...] conversation with family members today. Inpatient rehab nurse. Code Status: Full Code Regino Greene MD 12/23/2019 10:03 PM Marycarmen Park [facility] - 12/23/2019 12:27 PM PDT . [...] signed by: ENEDINA Ramos, 12/23/2019 12:27 PM egino Greene MD - 12/22/2019 10:0 0 PM PDT [...] Miya Wilson RN at 12/22/2019 5:35 PM PDTBernal, Ketan de leon V, PT - 12/22/2019 1:14 PM PDTFormatting of this note might be different from the origi nal. 12/22/19 1314 PT Visit Summary PT Visit Type Missed Visit (treatment on hold) Next Visit Information 12/21; PT valerieal PT Visit Summary Pt's H&H continuing to decrease, now 7.1, , will hold until this has res olved Andria Simms RP - 12/22/2019 12:36 PM PDTClinical Pharmacy Note: [...] | Visit | | [address] [facility] | | | | | | [address] | | | | | | [address] | | | | | | | | +--------+ + + + + | 02/05/ | Office | Cardiology | Dina Sanchez DO | | | 2019 | Visit | | [address] | | | | | | [place] | | | | | | [address] | | | | | | | [...] | | | | | | [place] [address] | | | | | | [phone] | | | | | | | | +--------+ + + + + | 03/09/ | Office | Nephrology | Isiah Jade MD | | | 2019 | Visit | | [address] [facility] | | | | | | [address] | | | | | | [address] | | | | | | | [...] + +--------+ + + + | *TERMED* HI UPPER GI | Routin | 12/29/2019 | [...] | | ed by | | | | | | Sasha | +---+--------+ + [...] Testing | 65 - 99 mg/dL | [facility] | | | POC | performed at [facility];[address] | | LABORATORY | | | | [facility];[place], [place] | | | | | | [address] | | | | + + + + + + + + | Specimen | + + | | + + + + + + + | Performing | Address | City/State/Zipcode | Phone Number | | Organization | | | | + + + + + | [facility] | [address] | [place] [address] | [phone] | + + + + + POC Glucose (01/01/2020 6:29 AM PDT) + + + + + + | Component | Value | Ref Range | Performed | Pathologist | | | | | At | Signature | + + + + + + | Glucose, | 143 (H)Comment: Testing | 65 - 99 mg/dL | [facility] | | | POC | performed at [facility];[address] | | LABORATORY | | | | [address];[place], [place] | | | | | | [address] | | | | + + + + + + + + | Specimen | + + | | + + + + + + + | Performing | Address | City/State/Zipcode | Phone Number | | Organization | | | | + + + + + | [facility] | [address] | [place] [address] | [phone] | + + + + + Basic [...] | | | | performed at [facility] | | | | | | [facility];[place], [place] | | | | | | [address] | | | | + + + + + + + + | Specimen | + + | Blood | + + + + + + + | Performing | Address | City/State/Zipcode | Phone Number | | Organization | | | | + + + + + | [facility] | [address] | [place] [address] | [phone] | + + + + + CBC [...] | | Absolute | performed at [facility];[address] | K/uL | LABORATORY | | | | [address];[place], [place] | | | | | | [address] | | | | + + + + + + + + | Specimen | + + | Blood | + + + + + + + | Performing | Address | City/State/Zipcode | Phone Number | | Organization | | | | + + + + + | [facility] | [address] | [place] [address] | [phone] | + + + + + POC Glucose (12/31/2019 9:02 PM PDT) + + + + + + | Component | Value | Ref Range | Performed | Pathologist | | | | | At | Signature | + + + + + + | Glucose, | 137 (H)Comment: Testing | 65 - 99 mg/dL | [facility] | | | POC | performed at [facility];[address] | | LABORATORY | | | | [address];[place] | | | | | | [address] | | | | + + + + + + + + | Specimen | + + | | + + + + + + + | Performing | Address | City/State/Zipcode | Phone Number | | Organization | | | | + + + + + | [facility] | [address] | [place] [address] | [phone] | + + + + + POC [...] | | POC | performed at [facility];[address] | | LABORATORY | | | | [address];[place] | | | | | | [address] | | | | + + + + + + + + | Specimen | + + | | + + + + + + + | Performing | Address | City/State/Zipcode | Phone Number | | Organization | | | | + + + + + | [facility] | [address] | [place] [address] | [phone] | + + + + + POC [...] | | POC | performed at [facility];[address] | | LABORATORY | | | | [address];[place] | | | | | | [address] | | | | + + + + + + + + | Specimen | + + | | + + + + + + + | Performing | Address | City/State/Zipcode | Phone Number | | Organization | | | | + + + + + | [facility] | [address] | [place] [address] | [phone] | + + + + + POC [...] | | POC | performed at [facility];[address] | | LABORATORY | | | | [address];[place], [place] | | | | | | [address] | | | | + + + + + + + + | Specimen | + + | | + + + + + + + | Performing | Address | City/State/Zipcode | Phone Number | | Organization | | | | + + + + + | [facility] | [address] | [place] [address] | [phone] | + + + + + Basic [...] | | | | | performed at [facility], [address] | | | | | | [facility], | | | | | | [place] [address] | | | | + + + + + + + + | Specimen | + + | Blood | + + + + + + + | Performing | Address | City/State/Zipcode | Phone Number | | Organization | | | | + + + + + | [facility] | [address] | [place] [address] | [phone] | + + + + + CBC [...] | | | Absolute | performed at [facility], [address] | K/uL | LABORATORY | | | | [address], | | | | | | [place] [address] | | | | + + + + + + + + | Specimen | + + | Blood | + + + + + + + | Performing | Address | City/State/Zipcode | Phone Number | | Organization | | | | + + + + + | [facility] | [address] | [place] [address] | [phone] | + + + + + POC [...] | | POC | performed at [facility];[address] | | LABORATORY | | | | [address];[place] | | | | | | [address] | | | | + + + + + + + + | Specimen | + + | | + + + + + + + | Performing | Address | City/State/Zipcode | Phone Number | | Organization | | | | + + + + + | [facility] | [address] | [place] [address] | [phone] | + + + + + POC Glucose (12/30/2019 4:11 PM PDT) + + + + + + | Component | Value | Ref Range | Performed | Pathologist | | | | | At | Signature | + + + + + + | Glucose, | 130 (H)Comment: Testing | 65 - 99 mg/dL | [facility] | | | POC | performed at [facility];[address] | | LABORATORY | | | | [address];[place] | | | | | | [address] | | | | + + + + + + + + | Specimen | + + | | + + + + + + + | Performing | Address | City/State/Zipcode | Phone Number | | Organization | | | | + + + + + | [facility] | [address] | [place] [address] | [phone] | + + + + + POC Glucose (12/30/2019 11:02 AM PDT) + + + + + + | Component | Value | Ref Range | Performed | Pathologist | | | | | At | Signature | + + + + + + | Glucose, | 128 (H)Comment: Testing | 65 - 99 mg/dL | [facility] | | | POC | performed at [facility];[address] | | LABORATORY | | | | [address];[place], [place] | | | | | | [address] | | | | + + + + + + + + | Specimen | + + | | + + + + + + + | Performing | Address | City/State/Zipcode | Phone Number | | Organization | | | | + + + + + | [facility] | [address] | [place] [address] | [phone] | + + + + + Basic [...] | 8.6 | 8.5 - 10.5 | [facility] | | | | | mg/dL | LABORATORY | | + + + + + + | Estimated | 20 (L)Comment: GFR <60: | >60 | [facility] | | | GFR | CHRONIC KIDNEY [...] | | | | performed at [facility];[address] | | | | | | [address] [facility];[place], [place] | | | | | | [address] | | | | + + + + + + + + | Specimen | + + | Blood | + + + + + + + | Performing | Address | City/State/Zipcode | Phone Number | | Organization | | | | + + + + + | [facility] | [address] | [place] [address] | [phone] | + + + + + POC Glucose (12/30/2019 6:04 AM PDT) + + + + + + | Component | Value | Ref Range | Performed | Pathologist | | | | | At | Signature | + + + + + + | Glucose, | 103 (H)Comment: Testing | 65 - 99 mg/dL | [facility] | | | POC | performed at [facility];[address] | | LABORATORY | | | | [address];[place] | | | | | | [address] | | | | + + + + + + + + | Specimen | + + | | + + + + + + + | Performing | Address | City/State/Zipcode | Phone Number | | Organization | | | | + + + + + | [facility] | [address] | [place] [address] | [phone] | + + + + + CBC [...] | | Absolute | performed at [facility];[address] | K/uL | LABORATORY | | | | [address];[place], [place] | | | | | | [address] | | | | + + + + + + + + | Specimen | + + | Blood | + + + + + + + | Performing | Address | City/State/Zipcode | Phone Number | | Organization | | | | + + + + + | [facility] | [address] | [place] [address] | [phone] | + + + + + POC Glucose (12/29/2019 11:56 PM PDT) + + + + + + | Component | Value | Ref Range | Performed | Pathologist | | | | | At | Signature | + + + + + + | Glucose, | 109 (H)Comment: Testing | 65 - 99 mg/dL | [facility] | | | POC | performed at [facility];[address] | | LABORATORY | | | [address];[place] | | | | | | [address] | | | | + + + + + + + + | Specimen | + + | | + + + + + + + | Performing | Address | City/State/Zipcode | Phone Number | | Organization | | | | + + + + + | [facility] | [address] | [place] [address] | [phone] | + + + + + Hemoglobin [...] | | | | performed at [facility];[address] | | LABORATORY | | | | [address];[place] | | | | | | [address] | | | | + + + + + + + + | Specimen | + + | Blood | + + + + + + + | Performing | Address | City/State/Zipcode | Phone Number | | Organization | | | | + + + + + | [facility] | [address] | [place] [address] | [phone] | + + + + + POC Glucose (12/29/2019 6:06 PM PDT) + + + + + + | Component | Value | Ref Range | Performed | Pathologist | | | | | At | Signature | + + + + + + | Glucose, | 128 (H)Comment: Testing | 65 - 99 mg/dL | [facility] | | | POC | performed at [facility];[address] | | LABORATORY | | | | [address];[place] | | | | | | [address] | | | | + + + + + + + + | Specimen | + + | | + + + + + + + | Performing | Address | City/State/Zipcode | Phone Number | | Organization | | | | + + + + + | [facility] | [address] | [place] [address] | [phone] | + + + + + Hemoglobin [...] | | | | performed at [facility];[address] | | LABORATORY | | | | [address];[place] | | | | | | [address] | | | | + + + + + + + + | Specimen | + + | Blood | + + + + + + + | Performing | Address | City/State/Zipcode | Phone Number | | Organization | | | | + + + + + | [facility] | [address] | [place] [address] | [phone] | + + + + + POC [...] | | POC | performed at [facility];[address] | | LABORATORY | | | | [address];[place] | | | | | | [address] | | | | + + + + + + + + | Specimen | + + | | + + + + + + + | Performing | Address | City/State/Zipcode | Phone Number | | Organization | | | | + + + + + | [facility] | [address] | [place] [address] | [phone] | + + + + + POC [...] | | POC | performed at [facility];[address] | | LABORATORY | | | | [address];[place], [place] | | | | | | [address] | | | | + + + + + + + + | Specimen | + + | | + + + + + + + | Performing | Address | City/State/Zipcode | Phone Number | | Organization | | | | + + + + + | [facility] | [address] | [place] [address] | [phone] | + + + + + Surgical [...] in two | | | containers, labeled "GretchenlailaAdnres." A. The specimen, | | | labeled [...] | | technical component was performed by [facility], [address] [place] [address] | | | [place] [address] (Toxicology Teacher: Padmini Sellers MD; CLIA# | | | [id number]). Professional interpretation was performed by[facility] | | | [facility], | | | [place] [address] (Toxicology Teacher: Oscar Maynard M.D.; CLIA#: | | | [id number]). Diagnostician: Padmini Sellers | | | MDPathologistElectronically [...] | |The technical component was performed by [facility], [address] [place] [address] (Toxicology Teacher: Padmini Sellers MD; CLIA# [id number]). Professional interpretation was performed by | | |[facility] [address] (Toxicology Teacher: Oscar Maynard M.D.; CLIA#: [id number]). | | | | | |Diagnostician: Padmini [...] | | | + +---------+ + + VANDANA (12/29/2019 8:36 AM PDT) + + | Specimen | + + | | + + + + + | Narrative | Performed At | + + + | [facility] | [facility] | | [facility] | [facility] | | Center[facility]astroenterology | | | Patient Name: Andres Guzmán | | | Procedure Date: 12/29/2019 8:36 AMMRN: [id number] | | | of : 1930 | | | Note Status: FinalizedAttending MD: LAMONT HERNANDEZ , | | | | | | | | | Procedure [...] the anesthesiologist and the | | | chemical laboratory technician in the pre-procedure area in [...] | | | with Gold probe 7 Jamaican x 5 pulses was successful with | [...] | | | AMNumber of Addenda: 0 [facility] | | | - Check hemoglobin q 6 hours for one day. | | | | | | | | |LAMONT HERNANDEZ MD | | |12/29/2019 10:19:54 AM | | |This report has been signed electronically. | | | | | |Note Initiated On: 12/29/2019 8:36 AM | | |Number of Addenda: 0 | | | | | | [facility] | | + + + + +---------+ [...] | | | | performed at [facility];[address] | | LABORATORY | | | | [address];[place] | | | | | | [address] | | | | + + + + + + + + | Specimen | + + | Blood | + + + + + + + | Performing | Address | City/State/Zipcode | Phone Number | | Organization | | | | + + + + + | [facility] | [address] | [place] [address] | [phone] | + + + + + POC [...] | | POC | performed at [facility];[address] | | LABORATORY | | | | [address];[place], [place] | | | | | | [address] | | | | + + + + + + + + | Specimen | + + | | + + + + + + + | Performing | Address | City/State/Zipcode | Phone Number | | Organization | | | | + + + + + | [facility] | [address] | [place] [address] | [phone] | + + + + + CBC [...] | | Absolute | performed at [facility];[address] | K/uL | LABORATORY | | | | [address];[place], [place] | | | | | | [address] | | | | + + + + + + + + | Specimen | + + | Blood | + + + + + + + | Performing | Address | City/State/Zipcode | Phone Number | | Organization | | | | + + + + + | [facility] | [address] | [place] [address] | [phone] | + + + + + Protime [...] | | | | performed at [facility] | | | | | | [address] [facility];[place], [place] | | | | | | [address] | | | | + + + + + + + + | Specimen | + + | Blood | + + + + + + + | Performing | Address | City/State/Zipcode | Phone Number | | Organization | | | | + + + + + | [facility] | [address] | [place] [address] | [phone] | + + + + + Basic [...] 20 (L)Comment: GFR <60: | >60 | [facility] | | | GFR | CHRONIC KIDNEY [...] | | | | performed at [facility];[address] | | | | | | [facility];[place], [place] | | | | | | [address] | | | | + + + + + + + + | Specimen | + + | Blood | + + + + + + + | Performing | Address | City/State/Zipcode | Phone Number | | Organization | | | | + + + + + | [facility] | [address] | [place] [address] | [phone] | + + + + + POC [...] | | POC | performed at [facility];[address] | | LABORATORY | | | | [address];[place] | | | | | | [address] | | | | + + + + + + + + | Specimen | + + | | + + + + + + + | Performing | Address | City/State/Zipcode | Phone Number | | Organization | | | | + + + + + | [facility] | [address] | [place] [address] | [phone] | + + + + + Hemoglobin [...] | | | | performed at [facility] | | LABORATORY | | | | [address] [facility];[place], [place] | | | | | | [address] | | | | + + + + + + + + | Specimen | + + | Blood | + + + + + + + | Performing | Address | City/State/Zipcode | Phone Number | | Organization | | | | + + + + + | [facility] | [address] | [place] [address] | [phone] | + + + + + POC [...] | | POC | performed at [facility];[address] | | LABORATORY | | | | [address];[place] | | | | | | [address] | | | | + + + + + + + + | Specimen | + + | | + + + + + + + | Performing | Address | City/State/Zipcode | Phone Number | | Organization | | | | + + + + + | [facility] | [address] | [place] [address] | [phone] | + + + + + Fecal Hemoglobin (12/28/2019 7:20 PM PDT) + + + + + + | Component | Value | Ref Range | Performed | Pathologist | | | | | At | Signature | + + + + + + | FECAL | POSITIVE (A)Comment: | NEG | ALEX | | | OCCULT BLD | Testing performed at | | LABORATORY | | | | [facility];[address];[place] [address] | | | | + + + + + + + + | Specimen | + + | Stool - Stool | | specimen (specimen) | + + + + + + + | Performing | Address | City/State/Zipcode | Phone Number | | Organization | | | | + + + + + | [facility] | [address] | [place] [address] | [phone] | + + + + + POC [...] | | POC | performed at [facility];[address] | | LABORATORY | | | | [address];[place], [place] | | | | | | [address] | | | | + + + + + + + + | Specimen | + + | | + + + + + + + | Performing | Address | City/State/Zipcode | Phone Number | | Organization | | | | + + + + + | [facility] | [address] | [place] [address] | [phone] | + + + + + Hemoglobin and Hematocrit (12/28/2019 3:11 PM PDT) + + + + + + | Component | Value | Ref Range | Performed | Pathologist | | | | | At | Signature | + + + + + + | Hemoglobin | 9.9 (L) | 13.2 - 17.0 | [place] | | | | | g/dL | LABORATORY | | + + + + + + | Hematocrit | 28.8 (L)Comment: Testing | 39.0 - 50.0 % | [facility] | | | | performed at [facility];[address] | | LABORATORY | | | | [address];[place] | | | | | | [address] | | | | + + + + + + + + | Specimen | + + | Blood | + + + + + + + | Performing | Address | City/State/Zipcode | Phone Number | | Organization | | | | + + + + + | [facility] | [address] | [place] [address] | [phone] | + + + + + POC [...] | | POC | performed at [facility];[address] | | LABORATORY | | | | [address];[place] | | | | | | [address] | | | | + + + + + + + + | Specimen | + + | | + + + + + + + | Performing | Address | City/State/Zipcode | Phone Number | | Organization | | | | + + + + + | [facility] | [address] | [place] [address] | [phone] | + + + + + POC Glucose (12/28/2019 7:03 AM PDT) + + + + + + | Component | Value | Ref Range | Performed | Pathologist | | | | | At | Signature | + + + + + + | Glucose, | 153 (H)Comment: Testing | 65 - 99 mg/dL | [facility] | | | POC | performed at [facility];[address] | | LABORATORY | | | | [address];[place] | | | | | | [address] | | | | + + + + + + + + | Specimen | + + | | + + + + + + + | Performing | Address | City/State/Zipcode | Phone Number | | Organization | | | | + + + + + | [facility] | [address] | [place] [address] | [phone] | + + + + + CBC [...] | | | Absolute | performed at [facility], [address] | K/uL | LABORATORY | | | | [place], | | | | | | [place] [address] | | | | + + + + + + + + | Specimen | + + | Blood | + + + + + + + | Performing | Address | City/State/Zipcode | Phone Number | | Organization | | | | + + + + + | [facility] | [address] | [place] [address] | [phone] | + + + + + Basic [...] 16 (L)Comment: GFR <60: | >60 | [facility] | | | GFR | CHRONIC KIDNEY [...] | | | | | | [facility]D [facility] traceable | | | | | | equation.Testing | | | | | | performed at [facility], [address] | | | | | | [facility], | | | | | | [place] [address] | | | | + + + + + + + + | Specimen | + + | Blood | + + + + + + + | Performing | Address | City/State/Zipcode | Phone Number | | Organization | | | | + + + + + | [facility] | [address] | [place] [address] | [phone] | + + + + + POC Glucose (12/27/2019 8:44 PM PDT) + + + + + + | Component | Value | Ref Range | Performed | Pathologist | | | | | At | Signature | + + + + + + | Glucose, | 191 (H)Comment: Testing | 65 - 99 mg/dL | [facility] | | | POC | performed at [facility];[address] | | LABORATORY | | | | [address];[place] | | | | | | [address] | | | | + + + + + + + + | Specimen | + + | | + + + + + + + | Performing | Address | City/State/Zipcode | Phone Number | | Organization | | | | + + + + + | [facility] | [address] | [place] [address] | [phone] | + + + + + POC [...] | | POC | performed at [facility];[address] | | LABORATORY | | | | [address];[place], [place] | | | | | | [address] | | | | + + + + + + + + | Specimen | + + | | + + + + + + + | Performing | Address | City/State/Zipcode | Phone Number | | Organization | | | | + + + + + | [facility] | [address] | [place] [address] | [phone] | + + + + + Red [...] BANK | Testing performed at | | [facility] | | | COMMENT | [facility];[address] | | LABORATORY | | | | [address];[place] [address] | | | | + + + + + + + + | Specimen | + + | | + + + + + + + | Performing | Address | City/State/Zipcode | Phone Number | | Organization | | | | + + + + + | [facility] | [address] | [place] [address] | [phone] | + + + + + Type [...] + + + | BB BAND | [id number] | | [facility] | | | | | | LABORATORY | | + + + + + + | UNIT # | [id number] | | [facility] | | | | [...] + + + | UNIT # | [id number] | | [facility] | | | | [...] | | RESULT | performed at [facility] | | LABORATORY | | | | [address];[place], [place] | | | | | | [address] | | | | + + + + + + + + | Specimen | + + | Blood | + + + + + + + | Performing | Address | City/State/Zipcode | Phone Number | | Organization | | | | + + + + + | [facility] | [address] | [place] [address] | [phone] | + + + + + POC Glucose (12/27/2019 7:25 AM PDT) + + + + + + | Component | Value | Ref Range | Performed | Pathologist | | | | | At | Signature | + + + + + + | Glucose, | 186 (H)Comment: Testing | 65 - 99 mg/dL | [facility] | | | POC | performed at [facility];[address] | | LABORATORY | | | | [address];[place] | | | | | | [address] | | | | + + + + + + + + | Specimen | + + | | + + + + + + + | Performing | Address | City/State/Zipcode | Phone Number | | Organization | | | | + + + + + | [facility] | [address] | [place] [address] | [phone] | + + + + + CBC [...] | | | Absolute | performed at [facility], [address] | K/uL | LABORATORY | | | | [place] [address], | | | | | | [place] [address] | | | | + + + + + + + + | Specimen | + + | | + + + + + + + | Performing | Address | City/State/Zipcode | Phone Number | | Organization | | | | + + + + + | [facility] | [address] | [place] [address] | [phone] | + + + + + Procalcitonin (12/27/2019 5:04 AM PDT) + + + + + + | Component | Value | Ref Range | Performed | Pathologist | | | | | At | Signature | + + + + + + | PROCALCITON | 0.41Comment: | <0.5 ng/mL | [facility] | | | IN | INTERPRETIVE | [...] | | | | | at [facility];[address] [place] [address] | | | | | | [facility];[place] [address] | | | | + + + + + + + + | Specimen | + + | Blood | + + + + + + + | Performing | Address | City/State/Zipcode | Phone Number | | Organization | | | | + + + + + | [facility] | [address] | [place] [address] | [phone] | + + + + + Basic [...] | | | | | performed at [facility], [address] | | | | | | [facility], | | | | | | [place] [address] | | | | + + + + + + + + | Specimen | + + | Blood | + + + + + + + | Performing | Address | City/State/Zipcode | Phone Number | | Organization | | | | + + + + + | [facility] | [address] | [place] [address] | [phone] | + + + + + Vitamin D, Deficiency Screen (25-Hydroxy) (12/27/2019 5:04 AM PDT) + + + + + + | Component | Value | Ref Range | Performed | Pathologist | | | | | At | Signature | + + + + + + | Vit D, | 25.2 (L)Comment: Vitamin | 30.0 - 100.0 | [facility] | | | 25-Hydroxy | D deficiency has been | ng/mL | LABORATORY | | | | defined by the [employer] | | | | | | ofMedicine [...] IOM | | | | | | ([employer]). | | | | | [...] Hugh; | | | | | | 96(6):1911-30.Testing | | | | | | performed at [facility], | | | | | | [address], | | | | | | [facility] [address] | | | | + + + + + + + + | Specimen | + + | Blood | + + + + + + + | Performing | Address | City/State/Zipcode | Phone Number | | Organization | | | | + + + + + | [facility] | [address] | [place] [address] | [phone] | + + + + + Potassium (12/27/2019 12:08 AM PDT) + + + + + + | Component | Value | Ref Range | Performed | Pathologist | | | | | At | Signature | + + + + + + | K | 4.0Comment: Testing | 3.5 - 4.9 | [place] | | | | performed at [facility];[address] | mmol/L | LABORATORY | | | | [address];[place] | | | | | | [address] | | | | + + + + + + + + | Specimen | + + | Blood | + + + + + + + | Performing | Address | City/State/Zipcode | Phone Number | | Organization | | | | + + + + + | [facility] | [address] [facility] | [place] [address] | [phone] | + + + + + Magnesium (12/27/2019 12:08 AM PDT) + + + + + + | Component | Value | Ref Range | Performed | Pathologist | | | | | At | Signature | + + + + + + | Magnesium | 2.2Comment: Testing | 1.7 - 2.4 mg/dL | [facility] | | | | performed at [facility];[address] | | LABORATORY | | | | [address];[place] | | | | | | [address] | | | | + + + + + + + + | Specimen | + + | Blood | + + + + + + + | Performing | Address | City/State/Zipcode | Phone Number | | Organization | | | | + + + + + | [facility] | [address] | [place] [address] | [phone] | + + + + + ECG [...] | | POC | performed at [facility];[address] | | LABORATORY | | | | [address];[place] | | | | | | [address] | | | | + + + + + + + + | Specimen | + + | | + + + + + + + | Performing | Address | City/State/Zipcode | Phone Number | | Organization | | | | + + + + + | [facility] | [address] | [place] [address] | [phone] | + + + + + POC Glucose (12/26/2019 5:02 PM PDT) + + + + + + | Component | Value | Ref Range | Performed | Pathologist | | | | | At | Signature | + + + + + + | Glucose, | 154 (H)Comment: Testing | 65 - 99 mg/dL | [facility] | | | POC | performed at [facility];[address] | | LABORATORY | | | | [address];[place] | | | | | | [address] | | | | + + + + + + + + | Specimen | + + | | + + + + + + + | Performing | Address | City/State/Zipcode | Phone Number | | Organization | | | | + + + + + | [facility] | [address] | [place] [address] | [phone] | + + + + + Complement [...] | | | COMPLEMENT | performed at [facility], | | LABORATORY | | | | [address], | | | | | | [facility] [address] | | | | + + + + + + + + | Specimen | + + | | + + + + + + + | Performing | Address | City/State/Zipcode | Phone Number | | Organization | | | | + + + + + | [facility] | [address] | [place] [address] | [phone] | + + + + + Complement [...] | | | COMPLEMENT | performed at [facility], | | LABORATORY | | | | [address], | | | | | | [facility] [address] | | | | + + + + + + + + | Specimen | + + | | + + + + + + + | Performing | Address | City/State/Zipcode | Phone Number | | Organization | | | | + + + + + | [facility] | [address] | [place] [address] | [phone] | + + + + + POC [...] | | POC | performed at [facility];[address] | | LABORATORY | | | | [address];[place] | | | | | | [address] | | | | + + + + + + + + | Specimen | + + | | + + + + + + + | Performing | Address | City/State/Zipcode | Phone Number | | Organization | | | | + + + + + | [facility] | [address] | [place] [address] | [phone] | + + + + + POC Glucose (12/26/2019 7:38 AM PDT) + + + + + + | Component | Value | Ref Range | Performed | Pathologist | | | | | At | Signature | + + + + + + | Glucose, | 138 (H)Comment: Testing | 65 - 99 mg/dL | [facility] | | | POC | performed at [facility];[address] | | LABORATORY | | | | [address];[place] | | | | | | [address] | | | | + + + + + + + + | Specimen | + + | | + + + + + + + | Performing | Address | City/State/Zipcode | Phone Number | | Organization | | | | + + + + + | [facility] | [address] | [place] [address] | [phone] | + + + + + Parathyroid Hormone, Intraoperative (12/26/2019 4:25 AM PDT) + + + + + + | Component | Value | Ref Range | Performed | Pathologist | | | | | At | Signature | + + + + + + | PTH Intact | 167.0 (H)Comment: | 8.7 - 79.6 | [facility] | | | | Testing performed at | pg/mL | LABORATORY | | | | [facility];[address];[place] [address] | | | | + + + + + + + + | Specimen | + + | | + + + + + + + | Performing | Address | City/State/Zipcode | Phone Number | | Organization | | | | + + + + + | [facility] | [address] | [place] [address] | [phone] | + + + + + Renal [...] | | | | | performed at [facility], [address] | | | | | | [facility], | | | | | | [place] [address] | | | | + + + + + + + + | Specimen | + + | Blood | + + + + + + + | Performing | Address | City/State/Zipcode | Phone Number | | Organization | | | | + + + + + | [facility] | [address] | [place] [address] | [phone] | + + + + + POC [...] | | POC | performed at [facility];[address] | | LABORATORY | | | | [address];[place], [place] | | | | | | [address] | | | | + + + + + + + + | Specimen | + + | | + + + + + + + | Performing | Address | City/State/Zipcode | Phone Number | | Organization | | | | + + + + + | [facility] | [address] | [place] [address] | [phone] | + + + + + POC [...] | | POC | performed at [facility];[address] | | LABORATORY | | | | [address];[place] | | | | | | [address] | | | | + + + + + + + + | Specimen | + + | | + + + + + + + | Performing | Address | City/State/Zipcode | Phone Number | | Organization | | | | + + + + + | [facility] | [address] | [place] [address] | [phone] | + + + + + ECHO [...] | | POC | performed at [facility];[address] | | LABORATORY | | | | [address];[place] | | | | | | [address] | | | | + + + + + + + + | Specimen | + + | | + + + + + + + | Performing | Address | City/State/Zipcode | Phone Number | | Organization | | | | + + + + + | [facility] | [address] | [place] [address] | [phone] | + + + + + POC Glucose (12/25/2019 7:56 AM PDT) + + + + + + | Component | Value | Ref Range | Performed | Pathologist | | | | | At | Signature | + + + + + + | Glucose, | 136 (H)Comment: Testing | 65 - 99 mg/dL | [facility] | | | POC | performed at [facility];[address] | | LABORATORY | | | | [address];[place], [place] | | | | | | [address] | | | | + + + + + + + + | Specimen | + + | | + + + + + + + | Performing | Address | City/State/Zipcode | Phone Number | | Organization | | | | + + + + + | [facility] [facility] | [address] | [place] [address] | [phone] | + + + + + CK [...] | | | | performed at [facility];8 | | LABORATORY | | | | [facility];[place], [place] | | | | | | [address] | | | | + + + + + + + + | Specimen | + + | Blood | + + + + + + + | Performing | Address | City/State/Zipcode | Phone Number | | Organization | | | | + + + + + | [facility] | [address] | [place] [address] | [phone] | + + + + + Renal [...] (H) | 2.3 - 4.8 mg/dL | [facility] | | | | | | LABOR[facility]ORY | | + + + + + + | Estimated | 13 (L)Comment: GFR <60: | >60 | [facility] | | | GFR | CHRONIC KIDNEY [...] | | | | | performed at [facility], [address] | | | | | | [facility], | | | | | | [place] [address] | | | | + + + + + + + + | Specimen | + + | Blood | + + + + + + + | Performing | Address | City/State/Zipcode | Phone Number | | Organization | | | | + + + + + | [facility] | [address] | [place] [address] | [phone] | + + + + + Cytoplasmic [...] | | | | | with both HI-3 and | | | | | | [...] | <1:20Comment: The | Neg:<1:20 titer | [facility] | | | pANCA | atypical pANCA [...] | | | | | performed by [facility], | | | | | | [address], | | | | | | [facility] [address] | | | | + + + + + + + + | Specimen | + + | Blood | + + + + + + + | Performing | Address | City/State/Zipcode | Phone Number | | Organization | | | | + + + + + | [facility] | [address] | [place] [address] | [phone] | + + + + + Sedimentation Rate (12/25/2019 4:22 AM PDT) + + + + + + | Component | Value | Ref Range | Performed | Pathologist | | | | | At | Signature | + + + + + + | ESR | 6Comment: Testing | 0 - 20 mm/Hr | [facility] | | | | performed at [facility], [address] | | LABORATORY | | | | [address], | | | | | | [place] [address] | | | | + + + + + + + + | Specimen | + + | Blood | + + + + + + + | Performing | Address | City/State/Zipcode | Phone Number | | Organization | | | | + + + + + | [facility] | [address] | [place] [address] | [phone] | + + + + + Immunoglobulin, Free Light Chain (12/25/2019 4:22 AM PDT) + + + + + + | Component | Value | Ref Range | Performed | Pathologist | | | | | At | Signature | + + + + + + | [place] Free | 121.2 (H) | 3.3 - 19.4 mg/L | [facility] | | | Light | | | [...] + + + + + + | [place] | 1.25Comment: Testing | 0.26 - 1.65 | [facility] | | | a Free | [facility] | | LABORATORY | | | Light Chain | [place], [address] | | | | | Ratio | [place] [address] | | | | + + + + + + + + | Specimen | + + | Blood | + + + + + + + | Performing | Address | City/State/Zipcode | Phone Number | | Organization | | | | + + + + + | [facility] | [address] | [place] [address] | [phone] | + + + + + Glomerular Basement Membrane Ab, IgG (12/25/2019 4:22 AM PDT) + + + + + + | Component | Value | Ref Range | Performed | Pathologist | | | | | At | Signature | + + + + + + | Antiglomeru | 2Comment: | 0 - 20 units | [facility] | | | lar BM Ab, | [...] by | | | | | | [facility], [address] | | | | | | [place] | | | | | | [address] | | | | + + + + + + + + | Specimen | + + | Blood | + + + + + + + | Performing | Address | City/State/Zipcode | Phone Number | | Organization | | | | + + + + + | [facility] | [address] | [place] [address] | [phone] | + + + + + Hepatitis [...] | | 0.9The [facility] recommends | | | | | | that a positive HCV | | | | | | antibody resultbe | | | | | | followed up with a HCV | | | | | | Nucleic Acid | | | | | | Amplificationtest | | | | | | ([id number]).Testing | | | | | | performed at [facility], | | | | | | [address], | | | | | | [facility] [address] | | | | + + + + + + + + | Specimen | + + | Blood | + + + + + + + | Performing | Address | City/State/Zipcode | Phone Number | | Organization | | | | + + + + + | [facility] | [address] | [place] [address] | [phone] | + + + + + CK [...] | | | | performed at [facility];[address] | | LABORATORY | | | | [address];[place] | | | | | | [address] | | | | + + + + + + + + | Specimen | + + | Blood | + + + + + + + | Performing | Address | City/State/Zipcode | Phone Number | | Organization | | | | + + + + + | [facility] | [address] | [place] [address] | [phone] | + + + + + Lactate [...] | | | | performed at [facility];[address] | | LABORATORY | | | | [address];[place], [place] | | | | | | [address] | | | | + + + + + + + + | Specimen | + + | Blood | + + + + + + + | Performing | Address | City/State/Zipcode | Phone Number | | Organization | | | | + + + + + | [facility] | [address] | [place] [address] | [phone] | + + + + + Magnesium (12/25/2019 4:22 AM PDT) + + + + + + | Component | Value | Ref Range | Performed | Pathologist | | | | | At | Signature | + + + + + + | Magnesium | 2.5 (H)Comment: Testing | 1.7 - 2.4 mg/dL | [facility] | | | | performed at [facility], [address] | | LABORATORY | | | | [address], | | | | | | [place] [address] | | | | + + + + + + + + | Specimen | + + | Blood | + + + + + + + | Performing | Address | City/State/Zipcode | Phone Number | | Organization | | | | + + + + + | [facility] | [address] | [place] [address] | [phone] | + + + + + Protein, Urine, Random (12/25/2019 12:01 AM PDT) + + + + + + | Component | Value | Ref Range | Performed | Pathologist | | | | | At | Signature | + + + + + + | Protein, | 131Comment: NO NORMAL | mg/dL | [facility] | | | Urine | RANGE ESTABLISHEDTesting | | LABORATORY | | | | performed at [facility], [address] | | | | | [address], | | | | | | [place] [address] | | | | + + + + + + + + | Specimen | + + | | + + + + + + + | Performing | Address | City/State/Zipcode | Phone Number | | Organization | | | | + + + + + | [facility] | [address] | [place] [address] | [phone] | + + + + + Creatinine, Urine, Random (12/25/2019 12:01 AM PDT) + + + + + + | Component | Value | Ref Range | Performed | Pathologist | | | | | At | Signature | + + + + + + | Creatinine, | 139.0Comment: NO NORMAL | mg/dL | [facility] | | | random | RANGE ESTABLISHEDTesting | | LABORATORY | | | urine | performed at [facility], [address] | | | | | [address], | | | | | | [place] [address] | | | | + + + + + + + + | Specimen | + + | | + + + + + + + | Performing | Address | City/State/Zipcode | Phone Number | | Organization | | | | + + + + + | [facility] | [address] | [place] [address] | [phone] | + + + + + Protein/Creatinine Ratio, Urine (12/25/2019 12:01 AM PDT) + + + + + + | Component | Value | Ref Range | Performed | Pathologist | | | | | At | Signature | + + + + + + | PRO/CREA | 0.942Comment: Testing | | [facility] | | | RATIO,URINE | performed at [facility], [address] | | LABORATORY | | | | [address], | | | | | | [place] [address] | | | | + + + + + + + + | Specimen | + + | Urine | + + + + + + + | Performing | Address | City/State/Zipcode | Phone Number | | Organization | | | | + + + + + | [facility] | [address] | [place] [address] | [phone] | + + + + + POC Glucose (12/24/2019 8:55 PM PDT) + + + + + + | Component | Value | Ref Range | Performed | Pathologist | | | | | At | Signature | + + + + + + | Glucose, | 149 (H)Comment: Testing | 65 - 99 mg/dL | [facility] | | | POC | performed at [facility];[address] | | LABORATORY | | | | [address];[place] | | | | | | [address] | | | | + + + + + + + + | Specimen | + + | | + + + + + + + | Performing | Address | City/State/Zipcode | Phone Number | | Organization | | | | + + + + + | [facility] | [address] | [place] [address] | [phone] | + + + + + POC Glucose (12/24/2019 5:14 PM PDT) + + + + + + | Component | Value | Ref Range | Performed | Pathologist | | | | | At | Signature | + + + + + + | Glucose, | 136 (H)Comment: Testing | 65 - 99 mg/dL | [facility] | | | POC | performed at [facility];[address] | | LABORATORY | | | | [address];[place] | | | | | | [address] | | | | + + + + + + + + | Specimen | + + | | + + + + + + + | Performing | Address | City/State/Zipcode | Phone Number | | Organization | | | | + + + + + | [facility] | [address] | [place] [address] | [phone] | + + + + + ECG [...] | | Arterial, | performed at [facility];[address] | | LABORATORY | | | POC | [address];[place] | | | | | | [address] | | | | + + + + + + + + | Specimen | + + | | + + + + + + + | Performing | Address | City/State/Zipcode | Phone Number | | Organization | | | | + + + + + | [facility] | [address] | [place] [address] | [phone] | + + + + + Coronavirus (COVID-19) NAAT (12/24/2019 1:10 PM PDT) + + + + + + | Component | Value | Ref Range | Performed | Pathologist | | | | | At | Signature | + + + + + + | SARS-CoV-2, | NEGATIVEComment: Testing | NEG | [facility] | | | YOU | performed at [facility];[address] | | LABORATORY | | | (COVID-19) | [address];[place], [place] | | | | | | [address] | | | | + + + + + + + + | Specimen | + + | Tissue - Entire | | nasopharynx (body | | structure) | + + + + + + + | Performing | Address | City/State/Zipcode | Phone Number | | Organization | | | | + + + + + | [facility] | [address] | [place] [address] | [phone] | + + + + + Culture, [...] | | LABORATORY | | | | Blvd;[place] [address] | | | | + + + + + + | RESULT | NO GROWTH 6 DAYS | | [facility] | | | | | | LABORATORY | | + + + + + + | RESULT | Testing performed at | | [facility] | | | | [facility], [address] | | LABORATORY | | | | [place] | | | | | | [address]Qxosncv: Testing | | | | | | performed at [facility], [address] | | | | | | [address] [place] | | | | | | [address] | | | | + + + + + + + + | Specimen | + + | Blood - Peripheral | | blood specimen | | (specimen) | + + + + + + + | Performing | Address | City/State/Zipcode | Phone Number | | Organization | | | | + + + + + | [facility] | [address] | [place] [address] | [phone] | + + + + + Culture, [...] | | LABORATORY | | | | [address];[place] [address] | | | | + + + + + + | RESULT | NO GROWTH 6 DAYS | | [facility] | | | | | | LABORATORY | | + + + + + + | RESULT | Testing performed at | | [facility] | | | | [facility], [address] | | LABORATORY | | | | [place], [place] | | | | | | [address]Ozddnoy: Testing | | | | | | performed at [facility], [address] | | | | | | [address], [place] | | | | | | [address] | | | | + + + [...] [facility] | [address] | [place] [address] | [phone] | + + + + + Urinalysis [...] - 1.030 | [facility] | | | [place], | | | LABORATORY | | | [...] | | | Urine | performed at [facility], [address] | | LABORATORY | | | | [address], | | | | | | [place] [address] | | | | + + + [...] | + + + + + | [facility] | [address] | [place] [address] | [phone] | + + + + + Sodium, Urine, Random (12/24/2019 12:45 PM PDT) + + + + + + | Component | Value | Ref Range | Performed | Pathologist | | | | | At | Signature | + + + + + + | Sodium, | 52Comment: NO NORMAL | mmol/L | [facility] | | | Random | RANGE ESTABLISHEDTesting | | LABORATORY | | | urine | performed at [facility], [address] | | | | | | [address], | | | | | | [place] [address] | | | | + + + [...] | + + + + + | [facility] | [address] | [place] [address] | [phone] | + + + + + Creatinine, [...] | | | urine | performed at [facility], [address] | | | | | | [address], | | | | | | [place] [address] | | | | + + + [...] | + + + + + | [facility] | [address] | [place] [address] | [phone] | + + + + + Lactic Acid (12/24/2019 12:27 PM PDT) + + + + + + | Component | Value | Ref Range | Performed | Pathologist | | | | | At | Signature | + + + + + + | Lactate, | 1.6Comment: Testing | 0.4 - 2.0 | [facility] | | | Serum | performed at [facility];[address] | mmol/L | LABORATORY | | | | [address];[place] | | | | | | [address] | | | | + + + + + + + + | Specimen | + + | Blood | + + + + + + + | Performing | Address | City/State/Zipcode | Phone Number | | Organization | | | | + + + + + | [facility] | [address] | [place] [address] | [phone] | + + + + + Procalcitonin [...] | | | | | at [facility];[address] | | | | | | [address];[place] [address] | | | | + + + + + + + + | Specimen | + + | Blood | + + + + + + + | Performing | Address | City/State/Zipcode | Phone Number | | Organization | | | | + + + + + | [facility] | [address] | [place] [address] | [phone] | + + + + + POC [...] | | POC | performed at [facility];[address] | | LABORATORY | | | | [address];[place] | | | | | | [address] | | | | + + + + + + + + | Specimen | + + | | + + + + + + + | Performing | Address | City/State/Zipcode | Phone Number | | Organization | | | | + + + + + | [facility] | [address] | [place] [address] | [phone] | + + + + + POC Glucose (12/24/2019 8:32 AM PDT) + + + + + + | Component | Value | Ref Range | Performed | Pathologist | | | | | At | Signature | + + + + + + | Glucose, | 147 (H)Comment: Testing | 65 - 99 mg/dL | [facility] | | | POC | performed at [facility];[address] | | LABORATORY | | | | [address];[place] | | | | | | [address] | | | | + + + + + + + + | Specimen | + + | | + + + + + + + | Performing | Address | City/State/Zipcode | Phone Number | | Organization | | | | + + + + + | [facility] | [address] | [place] [address] | [phone] | + + + + + CBC [...] | 12.2Comment: NO NORMAL | fl | [facility] | | | | RANGE ESTABLISHEDTesting | | LABORATORY | | | | performed at [facility];[address] | | | | | | [address];[place] | | | | | | [address] | | | | + + + + + + + + | Specimen | + + | Blood | + + + + + + + | Performing | Address | City/State/Zipcode | Phone Number | | Organization | | | | + + + + + | [facility] | [address] | [place] [address] | [phone] | + + + + + Basic [...] | | | | | performed at [facility], [address] | | | | | | [address], | | | | | | [place] [address] | | | | + + + + + + + + | Specimen | + + | Blood | + + + + + + + | Performing | Address | City/State/Zipcode | Phone Number | | Organization | | | | + + + + + | [facility] | [address] | [place] [address] | [phone] | + + + + + POC [...] | | POC | performed at [facility];[address] | | LABORATORY | | | | [address];[place], [place] | | | | | | [address] | | | | + + + + + + + + | Specimen | + + | | + + + + + + + | Performing | Address | City/State/Zipcode | Phone Number | | Organization | | | | + + + + + | [facility] | [address] | [place] [address] | [phone] | + + + + + POC Glucose (12/23/2019 4:35 PM PDT) + + + + + + | Component | Value | Ref Range | Performed | Pathologist | | | | | At | Signature | + + + + + + | Glucose, | 129 (H)Comment: Testing | 65 - 99 mg/dL | [facility] | | | POC | performed at [facility];[address] | | LABORATORY | | | | [address];[place] | | | | | | [address] | | | | + + + + + + + + | Specimen | + + | | + + + + + + + | Performing | Address | City/State/Zipcode | Phone Number | | Organization | | | | + + + + + | [facility] | [address] | [place] [address] | [phone] | + + + + + POC Glucose (12/23/2019 2:05 PM PDT) + + + + + + | Component | Value | Ref Range | Performed | Pathologist | | | | | At | Signature | + + + + + + | Glucose, | 158 (H)Comment: Testing | 65 - 99 mg/dL | [facility] | | | POC | performed at [facility];[address] | | LABORATORY | | | | [address];[place], [place] | | | | | | [address] | | | | + + + + + + + + | Specimen | + + | | + + + + + + + | Performing | Address | City/State/Zipcode | Phone Number | | Organization | | | | + + + + + | [facility] | [address] | [place] [address] | [phone] | + + + + + POC [...] | | POC | performed at [facility];[address] | | LABORATORY | | | | [address];[place], [place] | | | | | | [address] | | | | + + + + + + + + | Specimen | + + | | + + + + + + + | Performing | Address | City/State/Zipcode | Phone Number | | Organization | | | | + + + + + | [facility] | [address] | [place] [address] | [phone] | + + + + + Basic [...] 22 (L)Comment: GFR <60: | >60 | [facility] | | | GFR | CHRONIC KIDNEY [...] | | | | performed at [facility];[address] | | | | | | [facility];[place], [place] | | | | | | [address] | | | | + + + + + + + + | Specimen | + + | Blood | + + + + + + + | Performing | Address | City/State/Zipcode | Phone Number | | Organization | | | | + + + + + | [facility] | [address] | [place] [address] | [phone] | + + + + + Phosphorus (12/23/2019 4:04 AM PDT) + + + + + + | Component | Value | Ref Range | Performed | Pathologist | | | | | At | Signature | + + + + + + | Phosphorus | 4.6Comment: Testing | 2.3 - 4.8 mg/dL | [facility] | | | | performed at [facility];[address] | | LABORATORY | | | | [address];[place] | | | | | | [address] | | | | + + + + + + + + | Specimen | + + | Blood | + + + + + + + | Performing | Address | City/State/Zipcode | Phone Number | | Organization | | | | + + + + + | [facility] | [address] | [place] [address] | [phone] | + + + + + Magnesium (12/23/2019 4:04 AM PDT) + + + + + + | Component | Value | Ref Range | Performed | Pathologist | | | | | At | Signature | + + + + + + | Magnesium | 2.1Comment: Testing | 1.7 - 2.4 mg/dL | [facility] | | | | performed at [facility];[address] | | LABORATORY | | | | [address];[place], [place] | | | | | | [address] | | | | + + + + + + + + | Specimen | + + | Blood | + + + + + + + | Performing | Address | City/State/Zipcode | Phone Number | | Organization | | | | + + + + + | [facility] | [address] | [place] [address] | [phone] | + + + + + CBC [...] | | | | performed at [facility];[address] | | | | | | [address];[place] | | | | | | [address] | | | | + + + + + + + + | Specimen | + + | Blood | + + + + + + + | Performing | Address | City/State/Zipcode | Phone Number | | Organization | | | | + + + + + | [facility] | [address] | [place] [address] | [phone] | + + + + + Hemoglobin (12/22/2019 9:37 PM PDT) + + + + + + | Component | Value | Ref Range | Performed | Pathologist | | | | | At | Signature | + + + + + + | Hemoglobin | 9.1 (L)Comment: Testing | 13.2 - 17.0 | [facility] | | | | performed at [facility];888 | g/dL | LABORATORY | | | | [address];[place] | | | | | | [address] | | | | + + + + + + + + | Specimen | + + | Blood | + + + + + + + | Performing | Address | City/State/Zipcode | Phone Number | | Organization | | | | + + + + + | [facility] | [address] | [place] [address] | [phone] | + + + + + Hematocrit (12/22/2019 9:37 PM PDT) + + + + + + | Component | Value | Ref Range | Performed | Pathologist | | | | | At | Signature | + + + + + + | Hematocrit | 27.4 (L)Comment: Testing | 39.0 - 50.0 % | [facility] | | | | performed at [facility] | | LABORATORY | | | | [facility];[place], [place] | | | | | | [address] | | | | + + + + + + + + | Specimen | + + | Blood | + + + + + + + | Performing | Address | City/State/Zipcode | Phone Number | | Organization | | | | + + + + + | [facility] | [address] | [place] [address] | [phone] | + + + + + POC [...] | | POC | performed at [facility];[address] | | LABORATORY | | | | [address];[place] | | | | | | [address] | | | | + + + + + + + + | Specimen | + + | | + + + + + + + | Performing | Address | City/State/Zipcode | Phone Number | | Organization | | | | + + + + + | [facility] | [address] | [place] [address] | [phone] | + + + + + POC Glucose (12/22/2019 5:32 PM PDT) + + + + + + | Component | Value | Ref Range | Performed | Pathologist | | | | | At | Signature | + + + + + + | Glucose, | 153 (H)Comment: Testing | 65 - 99 mg/dL | [facility] | | | POC | performed at [facility];[address] | | LABORATORY | | | | [address];[place] | | | | | | [address] | | | | + + + + + + + + | Specimen | + + | | + + + + + + + | Performing | Address | City/State/Zipcode | Phone Number | | Organization | | | | + + + + + | [facility] | [address] | [place] [address] | [phone] | + + + + + Red [...] BANK | Testing performed at | | [facility] | | | COMMENT | [facility];[address] | | LABORATORY | | | | [place] [address] | | | | + + + + + + + + | Specimen | + + | | + + + + + + + | Performing | Address | City/State/Zipcode | Phone Number | | Organization | | | | + + + + + | [facility] | [address] | [place] [address] | [phone] | + + + + + POC [...] | | POC | performed at [facility];[address] | | LABORATORY | | | | [address];[place], [place] | | | | | | [address] | | | | + + + + + + + + | Specimen | + + | | + + + + + + + | Performing | Address | City/State/Zipcode | Phone Number | | Organization | | | | + + + + + | [facility] | [address] | [place] [address] | [phone] | + + + + + [place] [...] | | POC | performed at [facility];[address] | g/dL | LABORATORY | | | | [address];[place], [place] | | | | | | [address] | | | | + + + + + + + + | Specimen | + + | | + + + + + + + | Performing | Address | City/State/Zipcode | Phone Number | | Organization | | | | + + + + + | [facility] | [address] | [place] [address] | [phone] | + + + + + POC ISTAT, CG8, Arterial (12/22/2019 9:23 AM PDT) + + + + + + | Component | Value | Ref Range | Performed | Pathologist | | | | | At | Signature | + + + + + + | pH, | 7.314 (L) | 7.350 - 7.450 | [facility] | | | Arterial, | | | [...] | | POC | performed at [facility];[address] | g/dL | LABORATORY | | | | [address];[place] | | | | | | [address] | | | | + + + + + + + + | Specimen | + + | | + + + + + + + | Performing | Address | City/State/Zipcode | Phone Number | | Organization | | | | + + + + + | [facility] | [address] | [place] [address] | [phone] | + + + + + POC NATHANAEL CACERES Arterial (12/22/2019 8:47 AM PDT) + + [...] (L)Comment: Testing | 13.7 - 16.7 | [facility] | | | POC | performed at [facility] [place];888 | g/dL | LABORATORY | | | | [address];[place], [place] | | | | | | [address] | | | | + + + + + + + + | Specimen | + + | | + + + + + + + | Performing | Address | City/State/Zipcode | Phone Number | | Organization | | | | + + + + + | [facility] | [address] | [place] [address] | [phone] | + + + + + POC [...] | | POC | performed at [facility];888 | g/dL | LABORATORY | | | | [address];[place], [place] | | | | | | [address] | | | | + + + + + + + + | Specimen | + + | | + + + + + + + | Performing | Address | City/State/Zipcode | Phone Number | | Organization | | | | + + + + + | [facility] | [address] | [place] [address] | [phone] | + + + + + Type [...] + + + | BB BAND | [id number] | | [facility] | | | | | | LABORATORY | | + + + + + + | UNIT # | [id number] | | [facility] | | | | [...] | | RESULT | performed at [facility] | | LABORATORY | | | | [address];[place], [place] | | | | | | [address] | | | | + + + + + + | UNIT # | [id number] | | [facility] | | | | [...] | + + + + + | [facility] | [address] | [place] [address] | [phone] | + + + + + POC Glucose (12/22/2019 5:35 AM PDT) + + + + + + | Component | Value | Ref Range | Performed | Pathologist | | | | | At | Signature | + + + + + + | Glucose, | 155 (H)Comment: Testing | 65 - 99 mg/dL | [facility] | | | POC | performed at [facility];[address] | | LABORATORY | | | | [address];[place], [place] | | | | | | [address] | | | | + + + + + + + + | Specimen | + + | | + + + + + + + | Performing | Address | City/State/Zipcode | Phone Number | | Organization | | | | + + + + + | [facility] | [address] | [place] [address] | [phone] | + + + + + Shine ORTEGA (12/22/2019 5:26 AM PDT) + + + + + + | Component | Value | Ref Range | Performed | Pathologist | | | | | At | Signature | + + + + + + | INR | 1.2Comment: REFERENCE | | [facility] | | | [...] | | | | performed at [facility] | | | | | | [address];[place], [place] | | | | | | [address] | | | | + + + + + + + + | Specimen | + + | Blood | + + + + + + + | Performing | Address | City/State/Zipcode | Phone Number | | Organization | | | | + + + + + | [facility] | [address] | [place] [address] | [phone] | + + + + + CBC [...] | | | Absolute | performed at [facility], [address] | K/uL | LABORATORY | | | | [address], | | | | | | [place] [address] | | | | + + + + + + + + | Specimen | + + | Blood | + + + + + + + | Performing | Address | City/State/Zipcode | Phone Number | | Organization | | | | + + + + + | [facility] | [address] | [place] [address] | [phone] | + + + + + Magnesium (12/22/2019 5:26 AM PDT) + + + + + + | Component | Value | Ref Range | Performed | Pathologist | | | | | At | Signature | + + + + + + | Magnesium | 2.6 (H)Comment: Testing | 1.7 - 2.4 mg/dL | [facility] | | | | performed at [facility], [address] | | LABORATORY | | | | [address], | | | | | | [place] [address] | | | | + + + + + + + + | Specimen | + + | Blood | + + + + + + + | Performing | Address | City/State/Zipcode | Phone Number | | Organization | | | | + + + + + | [facility] | [address] | [place] [address] | [phone] | + + + + + Basic [...] 22 (L)Comment: GFR <60: | >60 | [facility] | | | GFR | CHRONIC KIDNEY [...] | | | | | performed at [facility], [address] | | | | | | [facility], | | | | | | [place] [address] | | | | + + + + + + + + | Specimen | + + | Blood | + + + + + + + | Performing | Address | City/State/Zipcode | Phone Number | | Organization | | | | + + + + + | [facility] | [address] | [place] [address] | [phone] | + + + + + POC [...] | | POC | performed at [facility];[address] | | LABORATORY | | | | [address];[place] | | | | | | [address] | | | | + + + + + + + + | Specimen | + + | | + + + + + + + | Performing | Address | City/State/Zipcode | Phone Number | | Organization | | | | + + + + + | [facility] | [address] | [place] [address] | [phone] | + + + + + POC Glucose (12/21/2019 9:11 PM PDT) + + + + + + | Component | Value | Ref Range | Performed | Pathologist | | | | | At | Signature | + + + + + + | Glucose, | 182 (H)Comment: Testing | 65 - 99 mg/dL | [facility] | | | POC | performed at [facility];888 | | LABORATORY | | | | [address];[place] | | | | | | [address] | | | | + + + + + + + + | Specimen | + + | | + + + + + + + | Performing | Address | City/State/Zipcode | Phone Number | | Organization | | | | + + + + + | [facility] | [address] | [place] [address] | [phone] | + + + + + documented [...] | | | | | | longer, ofsxkb-wkz-enboo use of | | | | | [...] 20 3:26 | | | | | [facility] 12/27/19 at 1445, For 1 dose, | [...] | | (NORCO) 5-325 mg per tablet 1-2 | | 20 8:07 | | | | | tablet 1-2 tablet, Oral, EVERY 4 | | AM PDT | | | | | HOURS PRN, Pain, Moderate Pain, | | | | | | | Starting 12/21/19 at 2126, If | | | | | | | ineffective use Cary 10/ if | | | | | | [...] | | | | | | | 3677-8988 Use NIGHT DOSE for | | | | | | | doses scheduled: HS, | | | | | | | Nighttime 5277-7428 If the BG is | | | [...] | | | | | dose on 12/30/19 at 1415, | | | | | [...] | | | | | | | Mon12/24/19 at 1300, For 1 dose, | | [...] | | | 0817, For 1 dose, day Pre-op | | | | | | [...] | | | | | Minutes, ONCE, [facility] 12/26/19 at | | | | [...]
--- OUTSIDE RECORDS SUMMARY | ~2020-01-27 | XMS | Encounter Summary ---
Demographics + + + | Address | [address] | | | [place] [address] | + + + | Home Phone [...] [place] | | | | | [address] | | + + + + + | Deanna Lawson | ECON | Unknown | | + + + + + Care Team Providers + +------+ + | Care Vice President Of Human Resources Name | Role | Phone | + [...] + + | 01/02/ | Telephone | [facility] | Isiah Jade MD | Other ([facility] F/U | | 2020 | | NEPHROLOGY [place] | [address] [place] | ) | | | | [address] [place] | [address] [place], [place] | | | | | [address] [place], [place] | [address] | | | | | [address] | | | | | | [phone] | | | +--------+ + + + [...] [place] | | | | | | [address] | | | | | | | | +--------+ + + + + | 02/05/ | Office | Cardiology | Dina Sanchez DO | | | 2019 | Visit | | [address] | | | | | | [place] | | | | | | [address] | | | | | | | | +--------+ + + + + | 02/09/ | Procedure | Cardiology | | | | 2019 | visit | | | | +--------+ + + + + | 02/17/ | Office | Orthopedic Surgery | Melquiades Baez | | | 2019 | Visit | | [address] | | | | | | [facility], | | | | | | [place] [address] | | | | | | [phone] | | | | | | | | +--------+ + + + + | 03/09/ | Office | Nephrology | Isiah Jade MD | | | 2019 | Visit | | [address] [facility] | | | | | | [address] [place] | | | | | | [address] | | | | | | | | +--------+ + + + + documented as of this encounter Visit Diagnoses Not on filedocumented in this encounter"
--- OUTSIDE RECORDS SUMMARY | ~2020-01-27 | XMS | Encounter Summary ---
Demographics + + + | Address | [address] | | | [place] [address] | + + + | Home Phone | | + + + | Preferred Language | Unknown | + + + | Marital Status | | + + + | Worship Affiliation | 1001 | + + + [...] [place] | | | | | [address] | | + + + + + | Deanna Lawson | ECON | Unknown | | + + + + + Care Team Providers + +------+ + | Care Bareback Rider Name | Role | Phone | + [...] [place] | | | | | [place], [place] | [place] [address] | | | | | [address] | [phone] | | | | | [phone] | | | +--------+ + + + [...] | | [address] [facility] [place] | | | | | | [address] [place] | | | | | | [address] | | | | | | | | +--------+ + + + + | 02/05/ | Office | Cardiology | Dina Sanchez DO | | | 2019 | Visit | | [address] | | | | | | [place] | | | | | | [address] | | | | | | | | +--------+ + + + + | 02/09/ | Procedure | Cardiology | | | | 2019 | visit | | | | +--------+ + + + + | 02/17/ | Office | Orthopedic Surgery | OmahaMelquiades | | | 2019 | Visit | | [address] | | | | | | [place], | | | | | | [place] [address] | | | | | | [phone] | | | | | | | | +--------+ + + + + | 03/09/ | Office | Nephrology | Isiah Jade MD | | | 2019 | Visit | | [address] [facility] | | | | | | [address] [place] | | | | | | [address] | | | | | | | [...] 1.67 cm | | | AR Dec Crockett: 1.62 m/s2 AR Dec Time: 2122.29 ms [...] RV s': | | | 0.10 m/s Biological Technical Officer: PARTHA Authenticated by: Vikki Godoy | | | Report Date/Time: 09-27-2018 20:0:35 | | + + + + + | Procedure Note | + + | Kobe, Rad Conversion - 04/11/2019 12:50 PM PDT Patient Name: Francisco Guzmán of | | : 1930 Performing Physician: Vikki | | [facility] INDICATIONS------ | | -----afib, pacemaker, dilated [...] | | cmLVPWd: 0.92 cmLVOT Area: 4.11 [id number] Diam: 2.29 cm%FS: 21.62 %EF(Teich): | | [...] mlLAESV Index (A-L): 58.76 ml/m2LAAs A2C: 25.86 [id number] A-L A2C: 90.57 | | mlLALs A2C: 6.26 cmLAAs A4C: 29.36 [id number] A-L A4C: 115.78 mlLALs A4C: 6.32 | | cmRAAs: 26.92 [id number] A-L: 103.75 mlRAESV MOD: 96.91 mlRALs: 5.92 cmTAPSE: | | 1.67 cmAR Dec Crockett: 1.62 m/s2AR Dec Time: 2121.29 msAR maxP.71 mmHgAR PHT: | | 615.46 msAR Vmax: 3.45 m/Armen maxP.22 mmHgAV meanP.30 mmHgAV Vmax: 1.24 | | m/Armen Vmean: 0.84 m/Armen VTI: 25.35 cmAVA Vmax: 2.51 cm2AVA (VTI): 2.84 [id number] | | (Vmax): 0.00 cm2/m2AVAI (VTI): 0.00 [...] mmHgTR Vmax: 3.74 m/sRV s': 0.10 m/s Biological Technical Officer: | | DBSAuthenticated by: Vikki [facility] HospitalraReport Date/Time: 09-27-2018 20:0:35 IMPRESSION: 1. | | [...] | |TAPSE: 1.67 cm | |AR Dec Crockett: 1.62 m/s2 | |AR Dec Time: 2122.29 [...] |RV s': 0.10 m/s | | | |Biological Technical Officer: PARTHA | |Authenticated by: Vikki Godoy | |Report [...]
--- OUTSIDE RECORDS SUMMARY | ~2020-01-27 | XMS | Encounter Summary ---
Demographics + + + | Address | [address] | | | [place] [address] | + + + | Home Phone | | + + + | Preferred Language | Unknown | + + + | Marital Status | | + + + | Protestant Affiliation | 1001 | + + + [...] [place] | | | | | [address] | | + + + + + | Deanna Lawson | ECON | Unknown | | + + + + + Care Team Providers + +------+ + | Care Bead Maker Name | Role | Phone | + +------+ + | Barbara Gilman MD | PCP | | + +------+ + Encounter Details +--------+ + + + + | Date | Type | Department | Care Team | Description | +--------+ + + + + | 01/25/ | Orders Only | [facility] | Enoch Thompson, | | | 2019 | | CARDIOLOGY [place] | [address] | | | | | [address] | [place], [place] | | | | | [place], [place] | [address] | | | | | [address] | | | | | | [phone] | | | +--------+ + + + [...] 2019 | Visit | | [address] [facility] | | | | | | [address] [place] | | | | | | [address] | | | | | | | | +--------+ + + + + | 02/05/ | Office | Cardiology | Dina Sanchez DO | | | 2019 | Visit | | [address] | | | | | | [place] | | | | | | [address] | | | | | | | | +--------+ + + + + | 02/09/ | Procedure | Cardiology | | | | 2019 | visit | | | | +--------+ + + + + | 02/17/ | Office | Orthopedic Surgery | SashaMelquiades | | | 2019 | Visit | | DO [address] | | | | | | [place], | | | | | | [place] [address] | | | | | | [phone] | | | | | | | | +--------+ + + + + | 03/09/ | Office | Nephrology | Isiah Jade MD | | | 2019 | Visit | | [address] [facility] | | | | | | [address] [place] | | | | | | [address] | | | | | | | [...]
--- OUTSIDE RECORDS SUMMARY | ~2020-01-27 | XMS | Encounter Summary ---
Demographics + + + | Address | [address] | | | [place] [address] | + + + | Home Phone [...] [place] | | | | | [address] | | + + + + + | Deanna Lawson | ECON | Unknown | | + + + + + Care Team Providers + +------+ + | Care Creel Clerk Name | Role | Phone | + +------+ + PCP | Unavailable | + +------+ + Encounter Details +--------+ + + + + | Date | Type | Department | Care Team | Description | +--------+ + + + + | 07/28/ | Hospital | [facility] | Robe Prasad | | | 2009 - | Encounter | [facility] | MD [place] [address] | | | | | CARE FLOOR [address] | [address] [place] [address] | | | 07/31/ | | [address] | [place] [address] | | | 2009 | | [place], [place] | [phone] | | | | | [address] | | | | | | [phone] | | | +--------+ + + + [...] | Visit | | [address] [facility] | | | | | | [address] [place] | | | | | | [address] | | | | | | | | +--------+ + + + + | 02/05/ | Office | Cardiology | Dina Sanchez DO | | | 2019 | Visit | | [address] | | | | | | [place] | | | | | | [address] | | | | | | | | +--------+ + + + + | 02/09/ | Procedure | Cardiology | | | | 2019 | visit | | | | +--------+ + + + + | 02/17/ | Office | Orthopedic Surgery | Melquiaeds Baez | | | 2019 | Visit | | [address] | | | | | | [facility], | | | | | | [place] [address] | | | | | | [phone] | | | | | | | | +--------+ + + + + | 03/09/ | Office | Nephrology | Isiah Jade MD | | | 2019 | Visit | | [address] [facility] | | | | | | [address] [place] | | | | | | [address] | | | | | | | [...] | | | The pacemaker is a [employer] Altrua 60, model S601. Serial | | | number is [id number]. The electrode is a Guidant Clinical[employer]rus electrode model | | | number 4136, length 50 cm. Serial number is [id number]. PACING AND | | | SENSING PARAMETERS [...] DT: | | | 08/11/2010 07:18 A [facility]//[id number]/ Read by TODD HARDEN DO | | [...] DATA | | The pacemaker is a [employer] Altrua 60, model S601. Serial | | number is [id number]. | | The electrode is a Guidant Dextrus electrode model number 4136, length | | 50 cm. Serial number is [id number]. | | | | PACING AND SENSING [...] | P | | A | | NIAD/arline/[id number]/ | | | | Read by | | TODD HARDEN DO 08/10/2010 09:46 P | | | | | + + documented in this encounter Visit Diagnoses Not on filedocumented in this encounter"
--- OUTSIDE RECORDS SUMMARY | ~2020-01-27 | XMS | Encounter Summary ---
Demographics + + + | Address | [address] | | | [place] [address] | + + + | Home Phone [...] + + + | Author | [facility] | | | and [place] | + + + | Organization | [facility] | | | and [...] [place] | | | | | [address] | | + + + + + | Deanna Lawson | ECON | Unknown | | + + + + + Care Team Providers + +------+ + | Care Fsr Name | Role | Phone | + +------+ + PCP | Unavailable | + +------+ + Encounter Details +--------+ + + + + | Date | Type | Department | Care Team | Description | +--------+ + + + + | 01/07/ | Orders Only | [facility] | Conversion | | | 2019 | | NEPRHOLOGY [place] | Transaction, | | | | | [address] | Provider Unknown | | | | | [address] [place], [place] | [phone] | | | | | [address] | | | | | | [phone] | | | +--------+ + + + [...] Visit | | [address] [facility] | | | | | | [address] [place] | | | | | | [address] | | | | | | | | +--------+ + + + + | 02/05/ | Office | Cardiology | Dina Sanchez DO | | | 2019 | Visit | | [address] | | | | | | [place] | | | | | | [address] | | | | | | | [...] | | | | | [facility], | | | | | | [place] [address] | | | | | | [phone] | | | | | | | | +--------+ + + + + | 03/09/ | Office | Nephrology | Isiah Jade MD | | | 2019 | Visit | | [address] [facility] | | | | | | [address] [place] | | | | | | [address] | | | | | | | [...] - 1.030 | EXTERNAL | | | [place], | | | LAB | | | [...]
--- OUTSIDE RECORDS SUMMARY | ~2020-01-27 | XMS | Encounter Summary ---
Demographics + + + | Address | [address] | | | [place] [address] | + + + | Home Phone | | + + + | Preferred Language | Unknown | + + + | Marital Status | | + + + | Methodist Affiliation | 1001 | + + + [...] [place] | | | | | [address] | | + + + + + | Deanna Lawson | ECON | Unknown | | + + + + + Care Team Providers + +------+ + | Care Quality Control Systems Manager Name | Role | Phone | + +------+ + | Barbara Gilman MD | PCP | | + +------+ + Encounter Details +--------+ + + + + | Date | Type | Department | Care Team | Description | +--------+ + + + + | 09/08/ | Orders Only | [facility] | Todd Iqbal Ajith | | | 2016 | | CARDIOLOGY [place] | MD [address] | | | | | [address] | [address] | | | | | [address] | [place] [address] | | | | | [place], [place] | [phone] | | | | | [address] | | | | | | [phone] | | | +--------+ + + + [...] Visit | | [address] [facility] | | | | | | [address] [place] | | | | | | [address] | | | | | | | | +--------+ + + + + | 02/05/ | Office | Cardiology | Dina Sanchez DO | | | 2019 | Visit | | [address] | | | | | | [place] | | | | | | [address] | | | | | | | | +--------+ + + + + | 02/09/ | Procedure | Cardiology | | | | 2019 | visit | | | | +--------+ + + + + | 02/17/ | Office | Orthopedic Surgery | Melquiades Baez | | | 2019 | Visit | | [address] | | | | | | [facility], | | | | | | [place] [address] | | | | | | [phone] | | | | | | | | +--------+ + + + + | 03/09/ | Office | Nephrology | Isiah Jade MD | | | 2019 | Visit | | [address] [facility] | | | | | | [address] [place] | | | | | | [address] | | | | | | | [...] Performed At | + + + | [facility] CARDIOLOGY Nuclear Lexiscan Stress Test History: | [...] Leonides Bullock Conversion - 04/11/2019 9:03 PM [facility] | | Nuclear Lexiscan Stress Test [...]
--- OUTSIDE RECORDS SUMMARY | ~2020-01-27 | XMS | Encounter Summary ---
Demographics + + + | Address | [address] | | | [place] [address] | + + + | Home Phone [...] [place] | | | | | [address] | | + + + + + | Deanna Lawson | ECON | Unknown | | + + + + + Care Team Providers + +------+ + | Care Maintenance Superintendent Name | Role | Phone | + [...] | | | mellitus | [address] | [facility], | | | | | with other | [place] | [place] | | | | | diabetic | [address] | [address] | | | | | kidney | Phone: | Phone: | | | | | complication | [phone] | [phone] | | | | | (HCC) | Fax: | Fax: | | | | | Chronic | [phone] | [phone] | | | | | diastolic | [...] + + | 01/20/ | Office | [facility] | Melquiades Baez | Right hip pain | | 2020 | Visit | [facility] | DO [address] | (Primary Dx); | | | | MEDICINE EDUARDO | [facility], | Orthopedic aftercare | | | | [address] [facility] | [place] [address] | | | | | [place], [place] | [phone] | | | | | [address] | | | | | | [phone] | | | +--------+---------+ + + + [...] Baez DO - 01/21/2020 1:40 PM PDT [facility] Service: Orthopedic Surgery [...] Baez DO has created this entry using [employer] Voice Recognition software and [employer] macros. The entry has been reviewed and [...] [place] | | | | | | [address] | | | | | | | | +--------+ + + + + | 02/05/ | Office | Cardiology | Dina Sanchez DO | | | 2019 | Visit | | [address] | | | | | | [place] | | | | | | [address] | | | | | | | | +--------+ + + + + | 02/09/ | Procedure | Cardiology | | | | 2019 | visit | | | | +--------+ + + + + | 02/17/ | Office | Orthopedic Surgery | SashaMelquiades | | | 2019 | Visit | | [address] | | | | | | [place], | | | | | | [place] [address] | | | | | | [phone] | | | | | | | | +--------+ + + + + | 03/09/ | Office | Nephrology | Isiah Jade MD | | | 2019 | Visit | | [address] [facility] | | | | | | [address] [place] | | | | | | [address] | | | | | | | [...] Baez DO has created this entry using [employer] | | | Recognition software and [employer]. The entry has been reviewed | | | and there may still exist sound alike word errors. | | | | | |Electronically signed by: Melquiades Baez DO 01/24/2020 1:05 PM | | | | | | | | |Melquiades Baez DO has created this entry using [employer] | | |Recognition software and [employer]. The entry has been reviewed and | [...]
--- OUTSIDE RECORDS SUMMARY | ~2020-01-27 | XMS | Encounter Summary ---
Demographics + + + | Address | [address] | | | [place] [address] | + + + | Home Phone [...] [place] | | | | | [address] | | + + + + + | Deanna Lawson | ECON | Unknown | | + + + + + Care Team Providers + +------+ + | Care Editorial Writer Name | Role | Phone | + [...] | | Required | | atrial | PLASTER HELPER [address] | 19 | | | | | fibrillation | GOETHALS | ANUFORT PIERCELucius | | | | | (HCC) | [address] | [address] | | | | | Moderate to | [place], [place] | [address] | | | | | severe | [address] | [place] | | | | | pulmonary | Phone: | [address] Phone: | | | | | hypertension | [phone] | [phone] | | | | | (HCC) Risk | Fax: | Fax: | | | | | factors for | [phone] | [phone] | | | | | obstructive | [...] + + | 10/27/ | Office | [facility] | Charlee Oswald | 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 Dorsey at [place] [facility] , call [phone] for an appoi ntment next week I will have you establish care with Dr. Sanchez who will be your mine engineering supervisor See me back in 4 weeks documented [...] cirrhosis which is also followed by the [place], though liver enzymes normal . He was previously diagnosed with sleep apnea by the [place], but updated sleep study performed by the [place] in 2018 was reported by him as being negative His ZNN6CX3- VASC score is 6( HTN, age, stroke, [...] recreational or illicit drug use. Exercises with Lighting by [employer] and yard work, tolerates without chest pain or dyspnea. 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 Also worked for a [employer] company and then a [employer], but now just enjoys his leisure ti [...] or rhonchi noted, respirations unlab ored HEART: [facility] pacemaker site well Healed, stable to palpation. [...] : 02/04/2019: ( Dr. Thompson) : new NearWoo Accolade MRI com patible model L310, serial #[id number] pacemaker. The current lead is a NearWoo model 4136, serial #[id number].Mode for pacing, VVIR with dual-sensor technology programmed on. T he lower rate will be 60 and upper rate 120beats per minute. The output will be 2 volts at 0.4 milliseconds with sensitivity of 2.5 millivolts. Pacing and sensing will be bipolar Previous Implant Pacemaker/ICD: 07/30/2010, SYDNEE Kinsey S601, SN: [id number]. [facility]. Addendum: Last [...] function was seen today for th is [employer] single-chamber device. The pacing threshold was [...] 15 mmHg. Normal pulmonic valve with mild MS. Sinus of Valsalva dilated about 4.26 cm, [...] change, except less pulmonar y hypertension Echo:07/26/2017: [facility]: EF >70 percent. LV normal in [...] 75,TOTAL BILI 0.6,ALB 3.9 Labs: 02/18/2018: ([facility]). CBC: WBC 6.2, RBC 3.46, hemoglobin [...] TSH 3.55 Labs: 08/23/2018: ( [facility]): CBC: WBC 6.6, RBC 2.92, hemoglobin [...] stopped, as he has a very high FSE0BD4- VASC sco re of 6. For his [...] apnea evaluation with Dr. Dorsey at the [facility] sleep disorders clinic due to his now severe pulmonary hypertension. He also has an appointment with his just Dr. Jade on March 09. He states his local PCP is Rosa Elena Goodrich, but [facility] , so I will send copy of [...] contain inadvertent rec ognition errors. Maximilian MCCONNELL [facility] Cardiology 10/28/2019 Ubaldo gregory in this encounter Plan of Treatment +--------+ + + + + | Date | Type | Specialty | Care Team | Description | +--------+ + + + + | 01/29/ | Office | Nephrology | Isiah Jade MD | | | 2019 | Visit | | [address] [facility] | | | | | | [address] [place] | | | | | | [address] | | | | | | | | +--------+ + + + + | 02/05/ | Office | Cardiology | Dina Sanchez DO | | | 2019 | Visit | | [address] | | | | | | [place] | | | | | | [address] | | | | | | | | +--------+ + + + + | 02/09/ | Procedure | Cardiology | | | | 2019 | visit | | | | +--------+ + + + + | 02/17/ | Office | Orthopedic Surgery | Melquiades Baez | | | 2019 | Visit | | DO [address] | | | | | | [facility] [place], | | | | | | [place] [address] | | | | | | [phone] | | | | | | | | +--------+ + + + + | 03/09/ | Office | Nephrology | Isiah Jade MD | | | 2019 | Visit | | [address] [facility] | | | | | | [address] [place] | | | | | | [address] | | | | | | | [...]
--- OUTSIDE RECORDS SUMMARY | ~2020-01-27 | XMS | Encounter Summary ---
Demographics + + + | Address | [address] | | | [place] [address] | + + + | Home Phone [...] [place] | | | | | [address] | | + + + + + | Deanna Lawson | ECON | Unknown | | + + + + + Care Team Providers + +------+ + | Care Corn Chip Maker Name | Role | Phone | [...] + + | 12/01/ | Telephone | [facility] | Charlee Oswald | Testing | | 2020 | | CARDIOLOGY [place] | MARSH[address] Chauhan [address] | | | | | [address] | [address] | | | | | [address] | [place] [address] | | | | | [place], [place] | [phone] | | | | | [address] | | | | | | [phone] | | | +--------+ + + + [...] | | | | | [facility] | | | | | | [address] | | | | | | | | +--------+ + + + + | 02/05/ | Office | Cardiology | Dina Sanchez DO | | | 2019 | Visit | | [address] | | | | | | [place] | | | | | | [address] | | | | | | | [...] | | | | | [address] [place], | | | | | | [place] [address] | | | | | | [phone] | | | | | | | | +--------+ + + + + | 03/09/ | Office | Nephrology | Isiah Jade MD | | | 2019 | Visit | | [address] [facility] | | | | | | [address] [place] | | | | | | [address] | | | | | | | [...]
--- OUTSIDE RECORDS SUMMARY | ~2020-01-27 | XMS | Encounter Summary ---
Demographics + + + | Address | [address] | | | [place] [address] | + + + | Home Phone [...] [place] | | | | | [address] | | + + + + + | Deanna Lawson | ECON | Unknown | | + + + + + Care Team Providers + +------+ + | Care Prison Librarian Name | Role | Phone | + [...] + + | 08/12/ | Procedure | [facility] | | Cardiac pacemaker in | | 2019 | visit | CARDIOLOGY [place] | | situ (Primary Dx) | | | | [address] | | | | | | [place] | | | | | | [address] | | | | | | [phone] | | | +--------+ + + + [...] 2020 | Visit | | [address] [facility] | | | | | | [address] [place], [place] | | | | | | [address] | | | | | | | | +--------+ + + + + | 02/05/ | Office | Cardiology | Dina Sanchez DO | | | 2019 | Visit | | [address] | | | | | | [place] | | | | | | [address] | | | | | | | [...] | | | | | | [place] [address] | | | | | | [phone] | | | | | | | | +--------+ + + + + | 03/09/ | Office | Nephrology | Isiah Jade MD | | | 2019 | Visit | | [address] [facility] | | | | | | [address] [place] | | | | | | [address] | | | | | | | [...] Mercedez Jensen | LUCA | | Herson Disability Counselor 08/12/2019 4:09 [facility] | | | INTERROGATION REPORT Name: Andres Guzmán PCP: Barbara Elkins | | | MD Mukul : 1930MRN: [id number] Primary cardiology | | | provider: Charlee Oswald Primary electrophysiology provider: Enoch | | | Jay Device process development manager: ividence Device type: Single | | | chamber [...]
--- OUTSIDE RECORDS SUMMARY | ~2020-01-27 | XMS | Encounter Summary ---
Demographics + + + | Address | [address] | | | [place] [address] | + + + | Home Phone [...] [place] | | | | | [address] | | + + + + + | Deanna Lawson | ECON | Unknown | | + + + + + Care Team Providers + +------+ + | Care Raking Machine Operator Name | Role | Phone | + +------+ + PCP | Unavailable | + +------+ + Encounter Details +--------+ + + + + | Date | Type | Department | Care Team | Description | +--------+ + + + + | 07/25/ | Hospital | [facility] | Yoli Harding MD | Dyspnea, unspecified | | 2017 - | Encounter | [facility] | [address] | type; Fatigue, | | | | CARE FLOOR [address] | [place] [address] | unspecified type; | | 07/29/ | | [address] | [phone] | Altered mental | | 2016 | | [place], [place] | | status, unspecified | | | | [address] | | altered mental | | | | [phone] | | status type; | | | [...] Date of Service: 07/29/17 1003 Status: Signed Metal Alloy Scientist: Gutierrez Lopez MD (Physician) [facility] Service: Hospitalist Discharge Summary Date of [...] congestive heart failure clinic, arranged by case advocate and outpatient sharon metzger. Past Medical History [...] Take 500 mg by mouth daily. 07/24/2017@0700 Zcnpzgx-Lsycwiuwj-Tnonfax D 600-40-500 MG-MG-UNIT TB24 Take 1,200 mg [...] Take 1 tablet by mouth daily. 2016@0700 [place] 3 1000 MG CAPS Take 1 capsule [...] indicated below and as discussed by case advocate's at Bedside. Disposition: Home Condition: Stable Code Status: Full Code Discharge Instructions Diet Cardiac Diet Low Sodium Activity as Tolerated Follow up: ENEDINA Dickerson [address] [facility] [address] Go on 07/31/2017 Hospital Follow Up Guided Patient Services Guided Patient Services GPS Public Relations Specialist- JIAN Harmon [phone] Mon-Mon 7:30 AM 4:00 PM Call for any questions or concerns after your discharge home, or for help making follow up appointments. Charlee Chauhan ENEDINA Oswald [address] [place] [address] On 08/08/2017 Post-Hopsital discharge Follow-up. Medication List [...] Refills: 0 Commonly known as: VITAMIN C Mpvovgm-Lyrdxzujg-Njylnpk D 600-40-500 MG-MG-UNIT Tb24 Refills: 0 glipiZIDE [...] (none) Author Type: Registered Nurse Filed: 07/29/17 4886 Date of Service: 07/29/175 Status: Signed Metal Alloy Scientist: Valeria Martinez RN (Registered Nurse) Patient discharged home via private vehicle with family. Heart failure education completed, all discharge instructions discussed. Patient has heart failure education packet and paper prescriptions in possession. All questions answered, all patient belongings with family. Pat ient wheeled out with PALLIATIVE MEDICINE PHYSICIAN, all vital signs stable upon discharge. VALERIA MARTINEZ RN onver jose a Transaction, Provider Unknown - 07/28/2017 3:18 PM PST Progress Notes by Carina Quintero CMA at 07/28/17 1518 Author: Carina Quintero CMA Service: (none) Author Type: Gear Shaver Set Up Operator Filed: 07/28/17 1519 Date of Service: 07/28/171517 Status: Signed Metal Alloy Scientist: Carina Quintero CMA (Gear Shaver Set Up Operator) GPS- Patient enrolled. Scheduled to see Charlee Chauhan on 08/08 and PCP on 07/31 onver jose a Transaction, Provider Unknown - 07/28/2017 2:43 PM PST Case Management by Yousuf Mcfadden RN at 07/28/17 9088 Author: Yousuf Mcfadden RN Service: (none) Author Type: Registered Nurse Filed: 07/28/17 1485 Date of Service: 07/28/17 070 Status: Signed Metal Alloy Scientist: Yousuf W Hair, RN (Registered Nurse) I met with patient in rounds, he is enrolled in the CHF program through [facility] a nd has follow up schedule with his cardiologists. Gutierrez Momin MD - 07/28/2017 6:56 AM PST Progress Notes by Gutierrez Lopez MD at 07/28/17 0656 Author: Gutierrez Lopez MD Service: Hospitalist Author Type: Physician Filed: 07/28/17 1342 Date of Service: 07/28/1756 Status: Signed Metal Alloy Scientist: Gutierrez Lopez MD (Physician) [facility] Service: Hospitalist Progress Note Hospital Day: [...] 07/28/17617 Date of Service: 07/28/17612 Status: Signed Metal Alloy Scientist: Stacey Ley RN (Registered Nurse) Patient again [...] Date of Service: 07/27/17 1015 Status: Signed Metal Alloy Scientist: Gutierrez Lopez MD (Physician) [facility] Service: Hospitalist Progress Note Hospital Day: [...] (none) Author Type: Registered Nurse Filed: 07/26/17 1436 Date of Service: 07/26/171431 Status: Signed Metal Alloy Scientist: Yousuf Mcfadden RN (Registered Nurse) 07/26/17 143 [...] independent an d lives with his in [place]. He goes to the [facility] for his coumadin checks an d doesn't use any DME. Desiree denies having needs for discharge. Patient's PCP is:Janie Beltrán Patient's insurance:Medicare and [employer] Coverage concerns: none Medication coverage/concerns: yes/no Community [...] 1341 Date of Service: 07/26/17808 Status: Signed Metal Alloy Scientist: Nathen Coughlin MD (Physician) [facility] Service: Hospitalist Progress Note Pt: Desiree Mcconnell AGE/SEX: 87 y.o. male ROOM: [address] [place] [address] : 1930 PCP: JANIE FITZGERALD ADMIT DATE: [...] and managing patient and counseling/coordination. Dictation software, Sp[employer] Apps, used which may contain error for similar [...] 07/25/171950 Date of Service: 07/25/171946 Status: Signed Metal Alloy Scientist: Demond Sandy () Visit per pt req. Pt sitting up in bed, pt (Marissa) sitting next to bed. Pt welcomed vi sit. Chp provided caring listening. Pt did some life review - talked proudly about his & wif e's 63 years of marriage & 3 children. Pt also explained he & are [employer], an d quite involved there. Day RN [...] 07/25/171448 Date of Service: 07/25/171448 Status: Signed Metal Alloy Scientist: Renuka Reno RPH (Pharmacist) Renal Dosing Monitoring: [...] | Visit | | [address] [facility] [address] | | | | | | [address] [place] | | | | | | [address] | | | | | | | | +--------+ + + + + | 02/05/ | Office | Cardiology | Dina Sanchez DO | | | 2019 | Visit | | [address] | | | | | | [place] | | | | | | [address] | | | | | | | [...] | | | | | [address] [place], | | | | | | [place] [address] | | | | | | [phone] | | | | | | | | +--------+ + + + + | 03/09/ | Office | Nephrology | Isiah Jade MD | | | 2019 | Visit | | [address] [facility] | | | | | | [address] | | | | | | [address] | | | | | | | [...] | | | Fingerstick | performed at [facility];[address] | | LAB | | | [address];[place], [place] | | | | | | [address] | | | | + + + [...] | | | Fingerstick | performed at [facility];[address] | | LAB | | | | [address];[place] | | | | | | [address] | | | | + + + [...] | | | Fingerstick | performed at [facility];[address] | | LAB | | | | [address];[place], [place] | | | | | | [address] | | | | + + + [...] | | | | | performed at [facility] | | | | | | [facility];[place], [place] | | | | | | [address] | | | | + + + [...] | performed at [facility], [address] | [address] | LAB | | | | [address]reet Mccain, | | | | | | [place] [address] | | | | + + + [...] | performed at [facility], [address] | | LAB | | | | [address] Mccain, | | | | | | [place] [address] | | | | + + + [...] | | at [facility], [address] | | | | | | [address]cc[address], | | | | | | [place] [address] | | | | + + + [...] | | | Fingerstick | performed at [facility];[address] | | LAB | | | | [address];[place] | | | | | | [address] | | | | + + + [...] | | | Fingerstick | performed at [facility];[address] | | LAB | | | | [address];[place] | | | | | | [address] | | | | + + + [...] | | | Fingerstick | performed at [facility];[address] | | LAB | | | [address];[place], [place] | | | | | | [address] | | | | + + + [...] RECEIVEDAbnormal | | | Testing performed at [facility];[address] [place] [address];[place] [address] | | + + + + +---------+ [...] | | | Fingerstick | performed at [facility];[address] | | LAB | | | | [address] Mcc[address];[place] | | | | | | [address] | | | | + + + [...] | | | | | performed at [facility];[address] | | | | | | [facility];[place], [place] | | | | | | [address] | | | | + + + [...] | performed at [facility], [address] | K/uL | LAB | | | | [address]preet Mccain, | | | | | | [place] [address] | | | | + + + [...] | | at [facility], [address] | | | | | | [facility], | | | | | | [place] [address] | | | | + + + [...] | | | Fingerstick | performed at [facility];[address] | | LAB | | | | [place] [address]ccain;[place] | | | | | | [address] | | | | + + + [...] | | | Fingerstick | performed at [facility];[address] | | LAB | | | | [place] [address];[place] | | | | | | [address] | | | | + + + [...] | performed at [facility], [address] | | | | | | [address], | | | | | | [place] [address] | | | | + + + [...] | performed at [facility], [address] | | | | | | [address], | | | | | | [place] [address] | | | | + + + [...] | | | Fingerstick | performed at [facility];[address] | | LAB | | | | [address]cc[address];[place] | | | | | | [address] | | | | + + + [...] | | | Fingerstick | performed at [facility];[address] | | LAB | | | | [place] [address]cc[address];[place] | | | | | | [address] | | | | + + + [...] Mccain, | | | | | | [place] [address] | | | | + + + [...] | | | | | performed at [facility];[address] | | | | | | [address] Kal[address];[place], [place] | | | | | | [address] | | | | + + + [...] | performed at [facility], [address] | | LAB | | | [address] | [address]preet Mccain, | | | | | | [place] [address] | | | | + + + [...] | performed at [facility], [address] | K/uL | LAB | | | | [address]reet Mccain, | | | | | | [place] [address] | | | | + + + [...] | performed at [facility], [address] | | LAB | | | | [address]reet Ayala, | | | | | | [place] [address] | | | | + + + [...] | | | | | [place] [address] | | | | + + + [...] | | | Fingerstick | performed at [facility];[address] | | LAB | | | | [address] Mcc[address];[place] | | | | | | [address] | | | | + + + [...] | | | Fingerstick | performed at [facility];[address] | | LAB | | | | [address];[place] | | | | | | [address] | | | | + + + [...] | | | Fingerstick | performed at [facility];[address] | | LAB | | | | [address] Mcc[address];[place] | | | | | | [address] | | | | + + + [...] aortic stenosis. | | | Mitral Valve: Aqxq-ou-izuoyrey mitral regurgitation is present. | | | [...] 1.88 cm AR Dec | | | Elbert: 2.33 m/s2 AR Dec Time: 1398.10 ms [...] TV A Good: 0.32 m/s TV Dec Elbert: 2.31 m/s2 | | | TV Dec Time: 215.03 ms TV E Good: 0.49 m/s TV E/A Ratio: | | | 1.53 Supervisor Rose Grading: DOMITILA Authenticated by: JENNIFER SWAIN MD | | | Report Date/Time: -- [id number]:39:27 | | + + + + + [...] evidence of aortic stenosis.Mitral Valve: | | Rlmz-ci-embbuffc mitral regurgitation is present.Mitral Valve: Mild mitral [...] BPMR-R: 973.47 msLAESV(A-L): 99.35 mlLAAs A2C: 27.25 iq4JGQAQ A-L A2C: 99.85 | | mlLAESV MOD A2C: 93.96 mlLALs A2C: 6.31 cmLAAs A4C: 26.56 qu4OHIPZ A-L A4C: | | 96.85 mlLAESV MOD A4C: 88.08 mlLALs A4C: 6.18 cmTAPSE: 1.88 cmAR Dec Elbert: 2.33 | | m/s2AR Dec Time: 1398.10 msAR maxP.73 mmHgAR PHT: 405.45 msAR Vmax: 3.26 | | m/sHR: 64.46 BPMAV maxP.44 mmHgAV meanP.16 mmHgAV Vmax: 1.36 m/Armen | | Vmean: 0.98 m/Armen VTI: 29.20 cmAVA Vmax: 2.97 cm2AVA (VTI): 2.95 uc0TTAZ Dopp: | | 5.01 l/minHR: 58.18 BPMLVOT [...] A | | Good: 0.32 m/sTV Dec Elbert: 2.31 m/s2TV Dec Time: 215.03 msTV E Good: 0.49 m/sTV | | E/A Ratio: 1.53 Supervisor Rose Grading: Sandyticated by: JENNIFER Ward | | Date/Time: -- [id number] IMPRESSION: 1. Left ventricular systolic function is [...] | |TAPSE: 1.88 cm | |AR Dec Elbert: 2.33 m/s2 | |AR Dec Time: 1398.10 [...] A Good: 0.32 m/s | |TV Dec Elbert: 2.31 m/s2 | |TV Dec Time: 215.03 ms | |TV E Good: 0.49 m/s | |TV E/A Ratio: 1.53 | | | |Supervisor Rose Grading: GD | |Authenticated by: JENNIFER SWAIN MD | |Report Date/Time: -- [id number] | | | |IMPRESSION: | |1. Left [...] | | | Fingerstick | performed at [facility];[address] | | LAB | | | | [address];[place] | | | | | | [address] | | | | + + + [...] | | | | | performed at [facility];[address] | | | | | | [address];[place], [place] | | | | | | [address] | | | | + + + [...] | performed at [facility], [address] | K/uL | LAB | | | | [address]reet Mccain, | | | | | | [place] [address] | | | | + + + [...] | performed at [facility], [address] | uIU/mL | LAB | | | | [address], | | | | | | [place] [address] | | | | + + + [...] | performed at [facility], [address] | | LAB | | | | [address] Ayala, | | | | | | [place] [address] | | | | + + + [...] EXTERNAL | | | | performed at [facility];[address] | | LAB | | | | [address] Mcc[address];[place] | | | | | | [address] | | | | + + + [...] | | | | | [place] [address] | | | | + + + [...] | performed at [facility], [address] | | | | | | [address] Mcc[address], | | | | | | [place] [address] | | | | + + + [...] | | at [facility], [address] | | | | | | [address] Mcc[address], | | | | | | [place] [address] | | | | + + + [...] | | | | | | ACUTE [place] Testing | | | | | | performed at [facility];[address] | | | | | | [address];[place] | | | | | | [address] | | | | + + + [...] | | | Fingerstick | performed at [facility];[address] | | LAB | | | [address];[place], [place] | | | | | | [address] | | | | + + + [...] | | | | | | ACUTE [place] Testing | | | | | | performed at [facility];[address] | | | | | | [address];[place], [place] | | | | | | [address] | | | | + + + [...] | | | Fingerstick | performed at [facility];[address] | | LAB | | | | [address]cc[address];[place] | | | | | | [address] | | | | + + + [...] | + + + | [facility] Kilpatrick [facility] 1930 87 years Male XR CHEST 2 [...] | Procedure Note | + + | Kboe, Rad Conversion - 04/03/2019 7:51 PM PDT DESIREE A EICHHOLZ9/[birth year]/[id number] years MaleXR | | CHEST 2 VIEW FRONTAL AND QSRUVFD26/5/2017 11:18 AM INDICATION: Shortness of breath | [...] | | | | | | ACUTE [place] Testing | | | | | | performed at [facility];[address] | | | | | | [facility];[place], [place] | | | | | | [address] | | | | + + + [...] EXTERNAL | | | | performed at [facility];[address] | | LAB | | | | [address] [facility];[place], [place] | | | | | | [address] | | | | + + + [...] Performed by ED provider. Hemoccult quality control coordinator Passed. | | + + + + [...] (500), | | | | | | features editor ART BROWN (2) | | | | | | on 07/25/2017 5:09:42 PM | | | | | | | | | | + + + + + + + + | Specimen | + + | | + + + + + | Narrative | Performed At | + + + | Historically converted procedure from [facility] | EXTERNAL LAB | + + [...]
--- OUTSIDE RECORDS SUMMARY | ~2020-01-27 | XMS | Encounter Summary ---
Demographics + + + | Address | [address] | | | [place] [address] | + + + | Home Phone | | + + + | Preferred Language | Unknown | + + + | Marital Status | | + + + | Holiness Affiliation | 1001 | + + + | Race | Unknown | + + + | Ethnic Group | Unknown | + + + Author + + + | Author | [facility] | | | and [place] | + + + | Organization | [facility] | [...] [place] | | | | | [address] | | + + + + + | Deanna Lawson | ECON | Unknown | | + + + + + Care Team Providers + +------+ + | Care Video Editing Internship Name | Role | Phone | + [...] | | | mellitus | [address] | [facility], | | | | | with other | [place] | [place] | | | | | diabetic | [address] | [address] | | | | | kidney | Phone: | Phone: | | | | | complication | [phone] | [phone] | | | | | (HCC) | Fax: | Fax: | | | | | Chronic | [phone] | [phone] | | | | | diastolic | [...] + + | 01/20/ | Office | [facility] | Melquiades Baez | Right hip pain | | 2020 | Visit | ORTHO SPORTS | DO [address] | (Primary Dx); | | | | MEDICINE EDUARDO | [facility], | Orthopedic aftercare | | | | [address] [facility] | [place] [address] | | | | | [place], [place] | [phone] | | | | | [address] | | | | | | [phone] | | | +--------+---------+ + + + [...] Baez DO - 01/21/2020 1:40 PM PDT [facility] Orthopaedic and Sports Medicine Service: [...] Baez DO has created this entry using M2G Voice Recognition software and [employer] [employer] 911 macros. The entry has been reviewed and [...] Visit | | [address] [facility] [address] | | | | | | [address] [place] | | | | | | [address] | | | | | | | | +--------+ + + + + | 02/05/ | Office | Cardiology | Dina Sanchez DO | | | 2019 | Visit | | [address] | | | | | | [place] | | | | | | [address] | | | | | | | | +--------+ + + + + | 02/09/ | Procedure | Cardiology | | | | 2019 | visit | | | | +--------+ + + + + | 02/17/ | Office | Orthopedic Surgery | SashaMelquiades | | | 2019 | Visit | | [address] | | | | | | [address] [address], | | | | | | [place] [address] | | | | | | [phone] | | | | | | | | +--------+ + + + + | 03/09/ | Office | Nephrology | Isiah Jade MD | | | 2019 | Visit | | [address] [facility] | | | | | | [address] [place] | | | | | | [address] | | | | | | | [...] Baez DO has created this entry using [employer] | | | Recognition software and [employer]. The entry has been reviewed | | | and there may still exist sound alike word errors. | | | | | |Electronically signed by: Melquiades Baez DO 01/24/2020 1:05 PM | | | | | | | | |Melquiades Baez DO has created this entry using [employer] | | |Recognition software and [employer]. The entry has been reviewed and | [...]
--- OUTSIDE RECORDS SUMMARY | ~2020-01-27 | XMS | Encounter Summary ---
Demographics + + + | Address | [address] | | | [place] [address] | + + + | Home Phone [...] [place] | | | | | [address] | | + + + + + | Deanna Lawson | ECON | Unknown | | + + + + + Care Team Providers + +------+ + | Care Iron Assorter Name | Role | Phone | + [...] [place] | | | | | [place], [place] | [place] [address] | | | | | [address] | [phone] | | | | | [phone] | | | +--------+ + + + [...] Visit | | [address] [facility] | | | | | | [address] [place] | | | | | | [address] | | | | | | | | +--------+ + + + + | 02/05/ | Office | Cardiology | Dina Sanchez DO | | | 2019 | Visit | | [address] | | | | | | [place] | | | | | | [address] | | | | | | | | +--------+ + + + + | 02/09/ | Procedure | Cardiology | | | | 2019 | visit | | | | +--------+ + + + + | 02/17/ | Office | Orthopedic Surgery | CanaMelquiades | | | 2019 | Visit | | [address] | | | | | | [address] [place], | | | | | | [place] [address] | | | | | | [phone] | | | | | | | | +--------+ + + + + | 03/09/ | Office | Nephrology | Isiah Jade MD | | | 2019 | Visit | | [address] [facility] | | | | | | [address] [place] | | | | | | [address] | | | | | | | [...] 1.67 cm | | | AR Dec Winona: 1.62 m/s2 AR Dec Time: 2122.29 ms [...] RV s': | | | 0.10 m/s Store Sales Consultant: PARTHA Authenticated by: Vikki Godoy | | | Report Date/Time: 09-27-2018 20:0:35 | | + + + + + | Procedure Note | + + | Kobe, Rad Conversion - 04/11/2019 12:50 PM PDT Patient Name: Francisco Guzmán of | | : 1930 Performing Physician: Vikki | | [facility] INDICATIONS------ | | -----afib, pacemaker, dilated aortic [...] | | cmLVPWd: 0.92 cmLVOT Area: 4.11 [id number] Diam: 2.29 cm%FS: 21.62 %EF(Teich): | | [...] mlLAESV Index (A-L): 58.76 ml/m2LAAs A2C: 25.86 [id number] A-L A2C: 90.57 | | mlLALs A2C: 6.26 cmLAAs A4C: 29.36 [id number] A-L A4C: 115.78 mlLALs A4C: 6.32 | | cmRAAs: 26.92 [id number] A-L: 103.75 mlRAESV MOD: 96.91 mlRALs: 5.92 cmTAPSE: | | 1.67 cmAR Dec Winona: 1.62 m/s2AR Dec Time: 2121.29 msAR maxP.71 mmHgAR PHT: | | 615.46 msAR Vmax: 3.45 m/Armen maxP.22 mmHgAV meanP.30 mmHgAV Vmax: 1.24 | | m/Armen Vmean: 0.84 m/Armen VTI: 25.35 cmAVA Vmax: 2.51 cm2AVA (VTI): 2.84 [id number] | | (Vmax): 0.00 cm2/m2AVAI (VTI): 0.00 [...] mmHgTR Vmax: 3.74 m/sRV s': 0.10 m/s Store Sales Consultant: | | DBSAuthenticated by: Vikki [facility] CenterraReport Date/Time: 09-27-2018 20:0:35 IMPRESSION: 1. | | [...] | |TAPSE: 1.67 cm | |AR Dec Win[place]: 1.62 m/s2 | |AR Dec Time: 2122.29 [...] |RV s': 0.10 m/s | | | |Store Sales Consultant: PARTHA | |Authenticated by: Vikki Godoy | [...]
--- OUTSIDE RECORDS SUMMARY | ~2020-01-27 | XMS | Encounter Summary ---
Demographics + + + | Address | [address] | | | [place] [address] | + + + | Home Phone [...] [place] | | | | | [address] | | + + + + + | Deanna Lawson | ECON | Unknown | | + + + + + Care Team Providers + +------+ + | Care Collective Bargaining Specialist Name | Role | Phone | [...] + + | 11/10/ | Procedure | [facility] | | Cardiac pacemaker in | | 2019 | visit | CARDIOLOGY [place] | | situ (Primary Dx) | | | | [address] | | | | | | [place] | | | | | | [address] | | | | | | [phone] | | | +--------+ + + + [...] 2020 | Visit | | [address] [facility] | | | | | | [address] [place], [place] | | | | | | [address] | | | | | | | | +--------+ + + + + | 02/05/ | Office | Cardiology | Dina Sanchez DO | | | 2019 | Visit | | [address] | | | | | | [place] | | | | | | [address] | | | | | | | [...] | | | | | | [place] [address] | | | | | | [phone] | | | | | | | | +--------+ + + + + | 03/09/ | Office | Nephrology | Isiah Jade MD | | | 2019 | Visit | | [address] [facility] | | | | | | [address] [place] | | | | | | [address] | | | | | | | [...] Mercedez Jensen | LUCA | | Herson Fur Designer 11/12/2019 4:50 [facility] | | | INTERROGATION REPORT Name: Andres Guzmán PCP: Barbara Elkins | | | MD Mukul : 1930MRN: [id number] Primary cardiology | | | provider: Charlee Oswald Primary electrophysiology provider: Enoch | | | Jay Device ladies' locker room attendant: Slingr Device type: Single | | | chamber [...]
--- OUTSIDE RECORDS SUMMARY | ~2020-01-27 | XMS | Encounter Summary ---
Demographics + + + | Address | [address] | | | [place] [address] | + + + | Home Phone [...] [place] | | | | | [address] | | + + + + + | Deanna Lawson | ECON | Unknown | | + + + + + Care Team Providers + +------+ + | Care Senior Payroll Administrator Name | Role | Phone | + +------+ + | Barbara Gilman MD | PCP | | + +------+ + Encounter Details +--------+--------+ + + + | Date | Type | Department | Care Team | Description | +--------+--------+ + + + | 12/20/ | Intake | [facility] | | N/A | | 2019 | | [place] [address] | | | | | | [facility] | | | | | | [place], [place] | | | | | | [address] | | | | | | [phone] | | | +--------+--------+ + + + [...] 2020 | Visit | | [address] [facility] | | | | | | 160 [place] | | | | | | [address] | | | | | | | | +--------+ + + + + | 02/05/ | Office | Cardiology | Dina Sanchez DO | | | 2019 | Visit | | [address] | | | | | | [place] | | | | | | [address] | | | | | | | [...] | | | | | | [place] [address] | | | | | | [phone] | | | | | | | | +--------+ + + + + | 03/09/ | Office | Nephrology | Isiah Jade MD | | | 2019 | Visit | | [address] [facility] | | | | | | [address] [place], [place] | | | | | | [address] | | | | | | | [...]
--- OUTSIDE RECORDS SUMMARY | ~2020-01-27 | XMS | Encounter Summary ---
Demographics + + + | Address | [address] | | | [place] [address] | + + + | Home Phone [...] [place] | | | | | [address] | | + + + + + | Deanna Lawson | ECON | Unknown | | + + + + + Care Team Providers + +------+ + | Care Allergist/Immunologist Name | Role | Phone | + +------+ + | Barbara Gilman MD | PCP | | + +------+ + Encounter Details +--------+ + + + + | Date | Type | Department | Care Team | Description | +--------+ + + + + | 01/02/ | Orders Only | [facility] | Isiah Jade MD | Hypertension goal BP | | 2020 | | NEPHROLOGY [place] | [address] | (blood pressure) < | | | | [address] | [address] [place], [place] | 140/80 (Primary Dx); | | | | [address] [place], [place] | [address] | 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, stage IV | | | | [phone] | | (severe) (HCC); ATN | | [...] Visit | | [facility] [facility] | | | | | | [facility] | | | | | | [address] | | | | | | | | +--------+ + + + + | 02/05/ | Office | Cardiology | Dina Sanchez DO | | | 2019 | Visit | | [address] | | | | | | [place] | | | | | | [address] | | | | | | | [...] | | | | | [place], | | | | | | [place] [address] | | | | | | [phone] | | | | | | | | +--------+ + + + + | 03/09/ | Office | Nephrology | Isiah Jade MD | | | 2019 | Visit | | [address] [facility] | | | | | | [address] [place] | | | | | | [address] | | | | | | | [...]
--- OUTSIDE RECORDS SUMMARY | ~2020-01-27 | XMS | Encounter Summary ---
Demographics + + + | Address | [address] | | | [place] [address] | + + + | Home Phone [...] [place] | | | | | [address] | | + + + + + | Deanna Lawson | ECON | Unknown | | + + + + + Care Team Providers + +------+ + | Care Hearing Aid Mechanic Name | Role | Phone | + +------+ + | Barbara Gilman MD | PCP | | + +------+ + Reason for Visit +--------+ + | Reason | Comments | +--------+ + | Other | POST OP APPT | +--------+ + Encounter Details +--------+ + + + + | Date | Type | Department | Care Team | Description | +--------+ + + + + | 01/07/ | Telephone | [facility] | Melquiades Baez | Other (POST OP APPT | | 2019 | | ORTHO SPORTS | DO [address] | ) | | | | MEDICINE CELESTE | [facility] | | | | | [address] [facility] | [place] [address] | | | | | [place], [place] | [phone] | | | | | [address] | | | | | | [phone] | | | +--------+ + + + [...] [place] | | | | | | [address] | | | | | | | | +--------+ + + + + | 02/05/ | Office | Cardiology | Dina Sanchez DO | | | 2019 | Visit | | [address] | | | | | | [place] | | | | | | [address] | | | | | | | [...] | | | | | [place], | | | | | | [place] [address] | | | | | | [phone] | | | | | | | | +--------+ + + + + | 03/09/ | Office | Nephrology | Isiah Jade MD | | | 2019 | Visit | | [address] [facility] | | | | | | [address] [place] | | | | | | [address] | | | | | | | | +--------+ + + + + documented as of this encounter Visit Diagnoses Not on filedocumented in this encounter"
--- OUTSIDE RECORDS SUMMARY | ~2020-01-27 | XMS | Encounter Summary ---
Demographics + + + | Address | [address] | | | [place] [address] | + + + | Home Phone [...] [place] | | | | | [address] | | + + + + + | Deanna Lawson | ECON | Unknown | | + + + + + Care Team Providers + +------+ + | Care Brim Blocker Name | Role | Phone | + +------+ + | Barbara Gilman MD | PCP | | + +------+ + Encounter Details +--------+ + + + + | Date | Type | Department | Care Team | Description | +--------+ + + + + | 10/25/ | Orders Only | [facility] | Charlee Oswald | | | 2019 | | CARDIOLOGY ALYX | [address]SH[address] | | | | | [address] | [address] | | | | | [address] | [place] [address] | | | | | [place] | [phone] | | | | | [address] | | | | | | [phone] | | | +--------+ + + + [...] 2019 | Visit | | [address] [facility] | | | | | | [address] [place] | | | | | | [address] | | | | | | | | +--------+ + + + + | 02/05/ | Office | Cardiology | Dina Sanchez DO | | | 2019 | Visit | | [address] | | | | | | [place] | | | | | | [address] | | | | | | | | +--------+ + + + + | 02/09/ | Procedure | Cardiology | | | | 2019 | visit | | | | +--------+ + + + + | 02/17/ | Office | Orthopedic Surgery | Melquiades Baez | | 2019 | Visit | | [address] | | | | | | [address], | | | | | | [place] [address] | | | | | | [phone] | | | | | | | | +--------+ + + + + | 03/09/ | Office | Nephrology | Isiah Jade MD | | | 2019 | Visit | | [address] [facility] | | | | | | [address] [place] | | | | | | [address] | | | | | | | [...]
--- OUTSIDE RECORDS SUMMARY | ~2020-01-27 | XMS | Encounter Summary ---
Demographics + + + | Address | [address] | | | [place] [address] | + + + | Home Phone | | + + + | Preferred Language | Unknown | + + + | Marital Status | | + + + | Gnosticist Affiliation | 1001 | + + + | Race | Unknown | + + + | Ethnic Group | Unknown | + + + Author + + + | Author | [facility] | | | and [place] | + + + | Organization | [facility] | | [...] [place] | | | | | [address] | | + + + + + | Deanna Lawson | ECON | Unknown | | + + + + + Care Team Providers + +------+ + | Care Mold Bunch Trimmer Name | Role | Phone | + +------+ + | Barbara Gilman MD | PCP | | + +------+ + Encounter Details +--------+ + + + + | Date | Type | Department | Care Team | Description | +--------+ + + + + | 01/11/ | Orders Only | [facility] | Tristan Rajput, | | | 2018 | | NEPHROLOGY [place] | MENTAL HEALTH COUNSELOR [address] | | | | | [address] [facility] | [place] | | | | | [place] | [place] | | | | | [address] | [address] | | | | | [phone] | [phone] | | | | | | | [...] 2019 | Visit | | [address] [facility] [address] | | | | | | [address] [place] | | | | | | [address] | | | | | | | | +--------+ + + + + | 02/05/ | Office | Cardiology | Dina Sanchez DO | | | 2019 | Visit | | [address] | | | | | | [place] | | | | | | [address] | | | | | | | [...] | | | | | [place], | | | | | | [place] [address] | | | | | | [phone] | | | | | | | | +--------+ + + + + | 03/09/ | Office | Nephrology | Isiah Jade MD | | | 2019 | Visit | | [address] [facility] | | | | | | [address] [place] | | | | | | [address] | | | | | | | [...]
--- OUTSIDE RECORDS SUMMARY | ~2020-01-27 | XMS | Encounter Summary ---
Demographics + + + | Address | [address] | | | [place] [address] | + + + | Home Phone [...] [place] | | | | | [address] | | + + + + + | Deanna Lawson | ECON | Unknown | | + + + + + Care Team Providers + +------+ + | Care Manager Laboratory Name | Role | Phone | + +------+ + | Barbara Gilman MD | PCP | | + +------+ + Encounter Details +--------+ + + + + | Date | Type | Department | Care Team | Description | +--------+ + + + + | 09/08/ | Orders Only | [facility] | Todd Iqbal Ajith | | | 2016 | | CARDIOLOGY DWIGHT | MD Tyler [address] | | | | | N[address] | [address] | | | | | [address] | [place] [address] | | | | | [place], [place] | [phone] | | | | | [address] | | | | | | [phone] | | | +--------+ + + + [...] [place] | | | | | | [address] | | | | | | | | +--------+ + + + + | 02/05/ | Office | Cardiology | Dina Sanchez DO | | | 2019 | Visit | | [address] | | | | | | [place] | | | | | | [address] | | | | | | | [...] | [facility], | | | | | | [place] [address] | | | | | | [phone] | | | | | | | | +--------+ + + + + | 03/09/ | Office | Nephrology | Isiah Jade MD | | | 2019 | Visit | | [address] [facility] | | | | | | [address] [place] | | | | | | [address] | | | | | | | [...] Performed At | + + + | [facility] CARDIOLOGY Nuclear Lexiscan Stress Test History: [...] Bullock Conversion - 04/11/2019 9:[address] [facility] CARDIOLOGY | | Nuclear Lexiscan [...]
--- OUTSIDE RECORDS SUMMARY | ~2020-01-27 | XMS | Encounter Summary ---
Demographics + + + | Address | [address] | | | [place] [address] | + + + | Home Phone [...] [place] | | | | | [address] | | + + + + + | Deanna Lawson | ECON | Unknown | | + + + + + Care Team Providers + +------+ + | Care Nurse Discharge Name | Role | Phone | + [...] [address] | | | | | [place], [place] | [place] [address] | | | | | [address] | [phone] | | | | | [phone] | | | +--------+ + + + [...] 2019 | Visit | | [address] [facility] | | | | | | [address] [place] | | | | | | [address] | | | | | | | | +--------+ + + + + | 02/05/ | Office | Cardiology | Dina Sanchez DO | | | 2019 | Visit | | [address] | | | | | | [place] | | | | | | [address] | | | | | | | | +--------+ + + + + | 02/09/ | Procedure | Cardiology | | | | 2019 | visit | | | | +--------+ + + + + | 02/17/ | Office | Orthopedic Surgery | BlackstoneMelquiades | | | 2019 | Visit | | [address] | | | | | | [address], | | | | | | [place] [address] | | | | | | [phone] | | | | | | | | +--------+ + + + + | 03/09/ | Office | Nephrology | Isiah Jade MD | | | 2019 | Visit | | [address] [facility] | | | | | | [address] [place] | | | | | | [address] | | | | | | | [...] TR Vmax: 3.45 m/s | | | Chainstitch Sewing Machine Operator: DAR Authenticated by: Vikki Godoy Report | | | Date/Time: -- [id number]:23:50 | | + + + + ------+ [...] cmLVPWd: 0.86 cmLVOT Area: | | 3.66 sl7VNWP Diam: 2.15 cm%FS: 30.74 %EF(Teich): 57.74 %ESV(Teich): [...] mlLAESV Index (A-L): 55.88 ml/m2LAAs A2C: 25.46 [id number] A-L | | A2C: 88.15 mlLALs A2C: 6.24 cmLAAs A4C: 29.53 cq4VMKWZ A-L A4C: 110.72 mlLALs | | A4C: 6.68 cmRAAs: 31.00 xv7WTCTL A-L: 119.55 mlRAESV MOD: 117.88 mlRALs: 6.82 | | cmTAPSE: 1.87 cmAV maxP.43 mmHgAV meanP.22 mmHgAV Vmax: 1.05 m/Armen | | Vmean: 0.69 m/Armen VTI: 18.19 cmAVA Vmax: 2.31 cm2AVA (VTI): 2.75 cm1NWSX Vmax: | | 0.00 cm2/m2AVAI (VTI): 0.00 cm2/m2LVOT maxP.76 mmHgLVOT meanP.05 mmHgLVSI | | Dopp: 27.38 ml/m2LVSV Dopp: 50.12 mlLVOT Vmax: 0.66 m/sLVOT Vmean: 0.48 m/sLVOT | | VTI: 13.68 cmMV A Good: 0.02 m/sMV DecT: 135.32 msMV E Good: 0.84 m/sMV E/A | | Ratio: 38.78MV PHT: 39.24 msMVA By PHT: 5.60 zm8Lbbmzy e': 0.03 m/sSeptal E/e': | | 21.63Lateral e': 0.08 m/sLateral E/e': 10.19RAP: 15 mmHgRVSP: 62.86 mmHgTR | | maxP.86 mmHgTR Vmax: 3.45 m/s Chainstitch Sewing Machine Operator: DENISSEuthenticated by: Jayne | | [facility] HospitalhedRepboaz Date/Time: -- [id number]:23:50 IMPRESSION: 1. The left ventricle is | [...] |TR Vmax: 3.45 m/s | | | |Chainstitch Sewing Machine Operator: | |Authenticated by: Vikki Godoy | |Report Date/Time: -- [id number]:23:50 | | | |IMPRESSION: | |1. The [...]
--- OUTSIDE RECORDS SUMMARY | ~2020-01-27 | XMS | Encounter Summary ---
Demographics + + + | Address | [address] | | | [place] [address] | + + + | Home Phone [...] [place] | | | | | [address] | | + + + + + | Deanna Lawson | ECON | Unknown | | + + + + + Care Team Providers + +------+ + | Care Turfgrass Management Professor Name | Role | Phone | [...] + | 01/26/ | Documentati | [facility] | [place], | Other (PCP progress | | 2020 | on | NEPHROLOGY [place] | Kita Sterling | note 01/23/20) | | | | [address] | Intellectual Property Legal Assistant | | | | | [address] [place] | | | | | | [address] | | | | | | [phone] | | | +--------+ + + + [...] [address] [facility] [address] | | | | | | [address] [place] | | | | | | [address] | | | | | | | | +--------+ + + + + | 02/05/ | Office | Cardiology | Dina Sanchez DO | | | 2019 | Visit | | [address] | | | | | | [place] | | | | | | [address] | | | | | | | | +--------+ + + + + | 02/09/ | Procedure | Cardiology | | | | 2019 | visit | | | | +--------+ + + + + | 02/17/ | Office | Orthopedic Surgery | Melquiades Baez | | | 2019 | Visit | | [address] | | | | | | [facility] | | | | | | [place] [address] | | | | | | [phone] | | | | | | | | +--------+ + + + + | 03/09/ | Office | Nephrology | Isiah Jade MD | | | 2019 | Visit | | [address] [facility] | | | | | | [address] [place] | | | | | | [address] | | | | | | | | +--------+ + + + + documented as of this encounter Visit Diagnoses Not on filedocumented in this encounter"
--- OUTSIDE RECORDS SUMMARY | ~2020-01-27 | XMS | Encounter Summary ---
Demographics + + + | Address | [address] | | | [place] [address] | + + + | Home Phone [...] [place] | | | | | [address] | | + + + + + | Deanna Lawson | ECON | Unknown | | + + + + + Care Team Providers + +------+ + | Care Senior Risk Manager Name | Role | Phone | [...] + + | 01/05/ | Documentati | [facility] | [place], | Other (Dr. Jade | | 2020 | on | NEPHROLOGY [place]ESS[place] | [facility] | orders) | | | | [address] | [employer]eteria Server | | | | | [address] [place], [place] | | | | | | [address] | | | | | | [phone] | | | +--------+ + + + [...] 2019 | Visit | | [address] [facility] | | | | | | [address] [place] | | | | | | [address] | | | | | | | | +--------+ + + + + | 02/05/ | Office | Cardiology | Dina Sanchez DO | | | 2019 | Visit | | [address] | | | | | | [place] | | | | | | [address] | | | | | | | | +--------+ + + + + | 02/09/ | Procedure | Cardiology | | | | 2019 | visit | | | | +--------+ + + + + | 02/17/ | Office | Orthopedic Surgery | Melquiades Baez | | | 2019 | Visit | | DO [address] | | | | | | [place], | | | | | | [place] [address] | | | | | | [phone] | | | | | | | | +--------+ + + + + | 03/09/ | Office | Nephrology | Isiah Jade MD | | | 2019 | Visit | | [address] | | | | | | [address] [place] | | | | | | [address] | | | | | | | | +--------+ + + + + documented as of this encounter Visit Diagnoses Not on filedocumented in this encounter"
--- OUTSIDE RECORDS SUMMARY | ~2020-01-27 | XMS | Encounter Summary ---
Demographics + + + | Address | [address] | | | [place] [address] | + + + | Home Phone [...] [place] | | | | | [address] | | + + + + + | Deanna Lawson | ECON | Unknown | | + + + + + Care Team Providers + +------+ + | Care Customs Broker[employer] Agent Name | Role | Phone | + [...] + + | 01/07/ | Telephone | [facility] | Melquiades Baez | Other (POST OP APPT | | 2019 | | [facility] | DO [address] | ) | | | | MEDICINE [place] | [facility] | | | | | [address] [facility] | [place] [address] | | | | | [place], [place] | [phone] | | | | | [address] | | | | | | [phone] | | | +--------+ + + + [...] Visit | | [address] [facility] [place] | | | | | | [address] [place] | | | | | | [address] | | | | | | | | +--------+ + + + + | 02/05/ | Office | Cardiology | Dina Sanchez DO | | | 2019 | Visit | | [address] | | | | | | [place] | | | | | | [address] | | | | | | | | +--------+ + + + + | 02/09/ | Procedure | Cardiology | | | | 2019 | visit | | | | +--------+ + + + + | 02/17/ | Office | Orthopedic Surgery | Melquiades aBez | | | 2019 | Visit | | DO [address] | | | | | | [place], | | | | | | [place] [address] | | | | | | [phone] | | | | | | | | +--------+ + + + + | 03/09/ | Office | Nephrology | Isiah Jade MD | | | 2019 | Visit | | [address] [facility] | | | | | | [address] [place] | | | | | | [address] | | | | | | | | +--------+ + + + + documented as of this encounter Visit Diagnoses Not on filedocumented in this encounter"
--- OUTSIDE RECORDS SUMMARY | ~2020-01-27 | XMS | Encounter Summary ---
Demographics + + + | Address | [address] | | | [place] [address] | + + + | Home Phone [...] [place] | | | | | [address] | | + + + + + | Deanna Lawson | ECON | Unknown | | + + + + + Care Team Providers + +------+ + | Care Trade Mark Examiner Name | Role | Phone | + [...] + + | 12/20/ | Hospital | [facility] | Julián Messina MD | Acute GI bleeding | | 2020 - | Encounter | [facility] [address] | [address] | (Primary Dx); Closed | | | | [address] | [address] [place], [place] | comminuted | | 12/31/ | | [place], [place] | [address] | intertrochanteric | | 2020 | | [address] | | fracture of right | | | | [phone] | Regino Greene MD | femur with routine | | | | | [address] | healing; 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 No immediate indication for WORKERS' COMPENSATION CLAIMS SUPERVISOR. Patient was also seen by physical therapy and occupational therapy and was recommended for discharging to SNF. However patient will b e going to [facility] bed at this time. Patient [...] No CVA tenderness, no spinal tenderness Disposition: [facility] Condition: Fair No discharge procedures [...] BUNCREARATIO 30 01/01/2020 PTH 72.57 (A) 04/01/2019 [id number] 25.2 (L) 12/27/2019 CALCIUM 8.6 01/01/2020 PHOS [...] been following up with ENEDINA mena in [place]. He has unrecovered acute kidney injury and a higher baseline creatinine. At this time there is no clinical uremia, refractory volume overload, refractory acidosis, refractory hyperkalemia and no urgent indication of starting WORKERS' COMPENSATION CLAIMS SUPERVISOR. Neither is there an indication for diagnostic [...] Incentive spirometry. Transfuse Prn. No indication for WORKERS' COMPENSATION CLAIMS SUPERVISOR for now. Await renal recovery. On discharge [...] was completed later after rounds. Dictation software, CAXA, was used which may contain error for [...] but not limited to potential need for WORKERS' COMPENSATION CLAIMS SUPERVISOR . This is a patient with multiple [...] is waiting downstairs. Deanna Doe RN, CMSRN, [facility] Inpatient Wound Ostomy Care [phone] 01/01/2020 11:46 AM Savana Paula RN - [...] BUNCREARATIO 25 12/31/2019 PTH 72.57 (A) 04/01/2019 [id number] 25.2 (L) 12/27/2019 CALCIUM 8.5 12/31/2019 PHOS [...] been following up with ENEDINA mena in [place]. He has unrecovered acute kidney injury and a higher baseline creatinine. At this time there is no clinical uremia, refractory volume overload, refractory acidosis, refractory hyperkalemia and no urgent indication of starting WORKERS' COMPENSATION CLAIMS SUPERVISOR. Neither is there an indication for diagnostic [...] Incentive spirometry. Transfuse Prn. No indication for WORKERS' COMPENSATION CLAIMS SUPERVISOR for now. Await renal recovery. I discussed [...] was completed later after rounds. Dictation software, CAXA, was used which may contain error for [...] but not limited to potential need for WORKERS' COMPENSATION CLAIMS SUPERVISOR . This is a patient with multiple [...] injuries: see wound RN note for treatment. [facility] ed, continue wound care at swing bed, send with extra dressing supplies. *Metabolic bone disorder: elevated PTH and phosphorus. Treatment per plywood and veneer repairer (see thei r note). Subjective No chest [...] by: ENEDINA Ramos, 12/31/2019 10:58 AM Lelia eRad RN - 12/30/2019 2:4 5 PM PDT [...] who was admitted as a transfer from [facility] due t o a mechanical fall [...] finding placement and he was accepted by [facility]ing bed [facility] in [place], [place] for rehabilitation purposes. Hospital stay was [...] Facilty-Administered PRN Medications Ordered in [facility] Medication Dose Route Frequency Provider Last Rate [...] but remains week, he is accepted at [facility] in [place] with discharge plans tomorrow for rehabilit ation [...] discharge plans to Sw[facility] Bed Program in [facility] tomorrow. DVT prophylaxis with SCD's only due to risks of bleeding. Discharge plans tomorrow to [facility] in [place], [place] for rehabi litation. Called his daughter Ms. Huerta and left a message with updated information at phone number [phone]. Jerry Chino MD 12/30/2019 Holden Ambrocio PA - 12/30/2019 12:35 PM PDTFormatting of this note might be different from the [facility] Service: Gastroenterology Consult Progress Note Hospital Day: LOS: 9 days SUBJECTIVE Patient Summary: This is an 89-year-old male with multiple medical problems and a his tory of hypertension, diabetes, CKD stage III who was transferred from [facility] t o a fall and [...] deficits. PSYCHIATRIC: Appropriate, affect appears normal [facility] Gastroenterology Patient Name: Andres Guzmán Procedure [...] physician, the nurse, the anesthesiologist and the machine tool technician instructor in the pre-procedure area in the procedure [...] successful. Thermal coagulation with Gold probe 7 [place] x 5 pulses was successful with hemostasis. [...] 8:36 AM Number of Addenda: 0 [facility] DATA Lab Results Component Value Date [...] with any questions. Florina Cantu PA-C [facility] Gastroenterology 12/30/2019 Associated attestation - Lamont Hernandez MD - 12/31/2019 2:17 PM [id number] male with GI bleeding due to duodenal ulcer with visible vessel. The ulcer and visible vessel were tr eated with injection and gold probe thermal coagulation. The patient was seen and examined by me personally. The case was discussed with the physician's occupational therapist assistants and I agree with the assessment and p tim as outlined in the note. Continue PPI IV infusion for total of 72 hours and then when patient is discharged he must be on twice daily PPI for 8 weeks. Resume Eliquis in 1 week. Lamont Hernandez MD Gastroenterology staffDexter, SAMRA YooP - 12/30/2019 11:05 AM PDTFormatting of [...] status. Disposition: Plan to discharge tomorrow, to [facility], once medically stable and cleared by [...] dinner dextrose 10% pantoprazole 8 mg/hr (12/30/19 0979) ROS: Review of systems is as per [...] BUNCREARATIO 23 12/30/2019 PTH 72.57 (A) 04/01/2019 [id number] 25.2 (L) 12/27/2019 CALCIUM 8.6 12/30/2019 PHOS [...] been following up with ENEDINA mena in [place]. That had improved with nonoliguric state but now seems to have leveled off at around 3 and this may be reflection of unrecovered acute kidney injury and a higher baseline creatinine. At this time there is no clinical uremia, refractory volume overload, refractory acidosis, refractory hyperkalemia and no urgent indication of starting WORKERS' COMPENSATION CLAIMS SUPERVISOR. Neither is there an indication for diagnostic [...] Incentive spirometry. Transfuse Prn. No indication for WORKERS' COMPENSATION CLAIMS SUPERVISOR for now. Await renal recovery. I discussed [...] was completed later after rounds. Dictation software, CAXA, was used which may contain error for [...] but not limited to potential need for WORKERS' COMPENSATION CLAIMS SUPERVISOR . This is a patient with multiple [...] BUNCREARATIO 30 12/29/2019 PTH 72.57 (A) 04/01/2019 [id number] 25.2 (L) 12/27/2019 CALCIUM 8.7 12/29/2019 PHOS [...] been following up with ENEDINA mena in [place]. That seems to be improving with nonoliguric state and small reduction in creatinine. At this time there is no clinical uremia, refractory volume overload, refractory acidosis, refractory hyperkalemia and no urgent indication of starting WORKERS' COMPENSATION CLAIMS SUPERVISOR. Neither is there an indication for diagnostic [...] Incentive spirometry. Transfuse Prn. No indication for WORKERS' COMPENSATION CLAIMS SUPERVISOR for now. Await renal recovery. I discussed [...] was completed later after rounds. Dictation software, CAXA, was used which may contain error for [...] but not limited to potential need for WORKERS' COMPENSATION CLAIMS SUPERVISOR . acetaminophen 1,000 mg Oral 3 times [...] who was admitted as a transfer from [facility] due t o a mechanical fall [...] and he was accepted by [facility] Swing bed [facility] in [place], [place] for rehabilitation purposes. Hospita l stay [...] but needs rehabilitation, he is accepted by [facility] in [place], [place] with discharge plans early next weeks [...] another 1 to 2 to SNF in [place], [place] if remains stable and improve d. Called his daughter Ms. Huerta and updated her about plans at phone number [phone]. Jerry Chino MD 12/29/2019 Norma Sarabia RN [...] BUNCREARATIO 28 12/28/2019 PTH 72.57 (A) 04/01/2019 [id number] 25.2 (L) 12/27/2019 CALCIUM 8.5 12/28/2019 PHOS [...] been following up with ENEDINA mena in [place]. That seems to be improving with nonoliguric state and small reduction in creatinine. At this time there is no clinical uremia, refractory volume overload, refractory acidosis, refractory hyperkalemia and no urgent indication of starting WORKERS' COMPENSATION CLAIMS SUPERVISOR. Neither is there an indication for diagnostic [...] Incentive spirometry. Transfuse Prn. No indication for WORKERS' COMPENSATION CLAIMS SUPERVISOR for now. Await renal recovery. I discussed [...] was completed later after rounds. Dictation software, CAXA, was used which may contain error for [...] but not limited to potential need for WORKERS' COMPENSATION CLAIMS SUPERVISOR . acetaminophen 1,000 mg Oral 3 times [...] Grant - 12/28/2019 10:49 AM PDT [facility] Service: Orthopedic Surgery Progress Note Hospital [...] DALILA Peralta has created this entry using [employer] and Check macros. The entry has been reviewed and [...] who was admitted as a transfer from [facility] due t o a mechanical fall [...] and he was accepted by [facility] Swing bed [facility] in [place], [place] for rehabilitation purposes. Hospita l stay [...] making slow progress, he is accepted by [facility] Bed [facility] in [place], [place] with discharge plans possib ly early [...] 1 to 2 to a SNF in [place], [place] when renal functions are st able and cleared by Nephrology services. Also called his daughter Ms. Huerta and updated her a bout plans at phone number [phone]. Jerry Chino MD 12/28/2019 Ghazal Ferrer COTA - 12/27/2019 4:15 PM PDT MISSED OCCUPATIONAL THERAPY VISIT: Therapy attempted to see the following patient today: Andres Guzmán Missed Visit (treatment on hold) The reason for the missed visit was: pt supine in bed upon SENIOR CUSTOMER SERVICE REPRESENTATIVE arrival. Pt jsut recieving 2 units of [...] been following up with ENEDINA mena in [place]. That seems to be improving with nonoliguric state and small reduction in creatinine. At this time there is no clinical uremia, refractory volume overload, refractory acidosis, refractory hyperkalemia and no urgent indication of starting WORKERS' COMPENSATION CLAIMS SUPERVISOR. Neither is there an indication for diagnostic [...] Incentive spirometry. Transfuse Prn. No indication for WORKERS' COMPENSATION CLAIMS SUPERVISOR for now. Await renal recovery. I discussed [...] was completed later after rounds. Dictation software, CAXA, was used which may contain error for [...] but not limited to potential need for WORKERS' COMPENSATION CLAIMS SUPERVISOR . acetaminophen 1,000 mg Oral 3 times [...] with dinner dextrose 10% mith, Marycarmen Hubbard, COMPUTER NETWORK SPECIALIST - 12/27/2019 11:03 AM PDT ORTHOPEDIC SURGERY [...] status. Disposition: Plan to discharge Monday, to [facility], once medically stable a nd cleared [...] Net -400 ml . Treatment plan: per plywood and veneer repairer; slowly improving. *Blood pressure: labile; See VS [...] disorder: elevated PTH and phosphorus. Treatment per plywood and veneer repairer (see thei r note). Subjective No chest [...] who was admitted as a transfer from [facility] due t o a mechanical fall [...] trength and mobility. He is accepted by [facility] in [place], [place] and discharge is delayed due to [...] to 3 days to a SNF in [place], [place] when renal functions a re stable and cleared by Nephrology services. Jerry Chino MD 12/27/2019 Linda Montalvo RN - 12/26/2019 5:09 PM PDT [facility] Service: Wound Care Consult Note Hospital [...] additional questions. Linda Cedeno RN 17:16 arycarmen Jduge ARNP - 12/26/2019 12:55 PM PDTFormatting of [...] case has been discussed with Dr. Baez, JIAN and CM. Electronically signed by: ENEDINA [...] who was admitted as a transfer from [facility] due t o a mechanical fall [...] Facilty-Administered PRN Medications Ordered in [facility] Medication Dose Route Frequency Provider Last Rate [...] placement is recommended. 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 Huerta and the at phone number [phone] Code Status: Full Code Regino Greene MD [...] status. Disposition: Plan to discharge Monday, to [facility], once medically stable a nd cleared [...] lab follow-up and treatment per hospitalist and plywood and veneer repairer. *Blood pressure: hypotensive; See VS for BP trending. 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 Current Weight: 63.5 kg (140 lb) [...] Dr. Huerta and the at phone number [phone] Code Status: Full Code Regino Greene MD 12/24/2019 7:10 PM mith, Marycarmen Hubbard , COMPUTER NETWORK SPECIALIST - 12/24/2019 1:28 PM PDT . ORTHOPEDIC [...] any conversation with family members today. Inpatient rn cardiac rehab. Code Status: Full Code Regino Greene MD 12/23/2019 10:[address] [facility] - 12/23/2019 12:27 PM PDT . [...] [place] | | | | | | [address] | | | | | | | | +--------+ + + + + | 02/05/ | Office | Cardiology | Dina Sanchez DO | | | 2019 | Visit | | [address] | | | | | | [place] | | | | | | [address] | | | | | | | [...] | | | | | | [place] [address] | | | | | | [phone] | | | | | | | | +--------+ + + + + | 03/09/ | Office | Nephrology | Isiah Jade MD | | | 2019 | Visit | | [address] [facility] | | | | | | [address] | | | | | | [address] | | | | | | | [...] + +--------+ + + + | *TERMED* AR UPPER GI | Routin | 12/29/2019 | [...] Testing | 65 - 99 mg/dL | [facility] | | | POC | performed at [facility];[address] | | LABORATORY | | | | [facility], [place] | | | | | | [address] | | | | + + + + + + + + | Specimen | + + | | + + + + + + + | Performing | Address | City/State/Zipcode | Phone Number | | Organization | | | | + + + + + | [facility] | [address] | [place] [address] | [phone] | + + + + + POC Glucose (01/01/2020 6:29 AM PDT) + + + + + + | Component | Value | Ref Range | Performed | Pathologist | | | | | At | Signature | + + + + + + | Glucose, | 143 (H)Comment: Testing | 65 - 99 mg/dL | [facility] | | | POC | performed at [facility];[address] | | LABORATORY | | | | [address];[place], [place] | | | | | | [address] | | | | + + + + + + + + | Specimen | + + | | + + + + + + + | Performing | Address | City/State/Zipcode | Phone Number | | Organization | | | | + + + + + | [facility] | [address] | [place] [address] | [phone] | + + + + + Basic [...] | | | | | performed at [facility] | | | | | | [facility];[place], [place] | | | | | | [address] | | | | + + + + + + + + | Specimen | + + | Blood | + + + + + + + | Performing | Address | City/State/Zipcode | Phone Number | | Organization | | | | + + + + + | [facility] | [address] | [place] [address] | [phone] | + + + + + CBC [...] | | | Absolute | performed at [facility];[address] | K/uL | LABORATORY | | | | [address];[place], [place] | | | | | | [address] | | | | + + + + + + + + | Specimen | + + | Blood | + + + + + + + | Performing | Address | City/State/Zipcode | Phone Number | | Organization | | | | + + + + + | [facility] | [address] | [place] [address] | [phone] | + + + + + POC Glucose (12/31/2019 9:02 PM PDT) + + + + + + | Component | Value | Ref Range | Performed | Pathologist | | | | | At | Signature | + + + + + + | Glucose, | 137 (H)Comment: Testing | 65 - 99 mg/dL | [facility] | | | POC | performed at [facility];[address] | | LABORATORY | | | | [address];[place] | | | | | | [address] | | | | + + + + + + + + | Specimen | + + | | + + + + + + + | Performing | Address | City/State/Zipcode | Phone Number | | Organization | | | | + + + + + | [facility] | [address] | [place] [address] | [phone] | + + + + + POC [...] | | | POC | performed at [facility];[address] | | LABORATORY | | | | [address];[place] | | | | | | [address] | | | | + + + + + + + + | Specimen | + + | | + + + + + + + | Performing | Address | City/State/Zipcode | Phone Number | | Organization | | | | + + + + + | [facility] | [address] | [place] [address] | [phone] | + + + + + POC [...] | | | POC | performed at [facility];[address] | | LABORATORY | | | | [place];[place] | | | | | | [address] | | | | + + + + + + + + | Specimen | + + | | + + + + + + + | Performing | Address | City/State/Zipcode | Phone Number | | Organization | | | | + + + + + | [facility] | [address] | [place] [address] | [phone] | + + + + + POC [...] | | | POC | performed at [facility];[address] | | LABORATORY | | | | [address];[place], [place] | | | | | | [address] | | | | + + + + + + + + | Specimen | + + | | + + + + + + + | Performing | Address | City/State/Zipcode | Phone Number | | Organization | | | | + + + + + | [facility] | [address] [facility] [facility] | [place] [address] | [phone] | + + + + + Basic [...] | | | | | performed at [facility], [address] | | | | | | [facility], | | | | | | [place] [address] | | | | + + + + + + + + | Specimen | + + | Blood | + + + + + + + | Performing | Address | City/State/Zipcode | Phone Number | | Organization | | | | + + + + + | [facility] | [address] | [place] [address] | [phone] | + + + + + CBC [...] | | | Absolute | performed at [facility], [address] | K/uL | LABORATORY | | | | [address], | | | | | | [place] [address] | | | | + + + + + + + + | Specimen | + + | Blood | + + + + + + + | Performing | Address | City/State/Zipcode | Phone Number | | Organization | | | | + + + + + | [facility] | [address] | [place] [address] | [phone] | + + + + + POC [...] | | | POC | performed at [facility];[address] | | LABORATORY | | | | [address];[place] | | | | | | [address] | | | | + + + + + + + + | Specimen | + + | | + + + + + + + | Performing | Address | City/State/Zipcode | Phone Number | | Organization | | | | + + + + + | [facility] | [address] | [place] [address] | [phone] | + + + + + POC Glucose (12/30/2019 4:11 PM PDT) + + + + + + | Component | Value | Ref Range | Performed | Pathologist | | | | | At | Signature | + + + + + + | Glucose, | 130 (H)Comment: Testing | 65 - 99 mg/dL | [facility] | | | POC | performed at [facility];[address] | | LABORATORY | | | | [address];[place] | | | | | | [address] | | | | + + + + + + + + | Specimen | + + | | + + + + + + + | Performing | Address | City/State/Zipcode | Phone Number | | Organization | | | | + + + + + | [facility] | [address] | [place] [address] | [phone] | + + + + + POC Glucose (12/30/2019 11:02 AM PDT) + + + + + + | Component | Value | Ref Range | Performed | Pathologist | | | | | At | Signature | + + + + + + | Glucose, | 128 (H)Comment: Testing | 65 - 99 mg/dL | [facility] | | | POC | performed at [facility];[address] | | LABORATORY | | | | [address];[place], [place] | | | | | | [address] | | | | + + + + + + + + | Specimen | + + | | + + + + + + + | Performing | Address | City/State/Zipcode | Phone Number | | Organization | | | | + + + + + | [facility] | [address] | [place] [address] | [phone] | + + + + + Basic [...] | 8.6 | 8.5 - 10.5 | [facility] | | | | | mg/dL | LABORATORY | | + + + + + + | Estimated | 20 (L)Comment: GFR <60: | >60 | [facility] | | | GFR | CHRONIC KIDNEY [...] | | | | | performed at [facility];[address] | | | | | | [address] [facility];[place], [place] | | | | | | [address] | | | | + + + + + + + + | Specimen | + + | Blood | + + + + + + + | Performing | Address | City/State/Zipcode | Phone Number | | Organization | | | | + + + + + | [facility] | [address] | [place] [address] | [phone] | + + + + + POC Glucose (12/30/2019 6:04 AM PDT) + + + + + + | Component | Value | Ref Range | Performed | Pathologist | | | | | At | Signature | + + + + + + | Glucose, | 103 (H)Comment: Testing | 65 - 99 mg/dL | [facility] | | | POC | performed at [facility];[address] | | LABORATORY | | | | [address];[place] | | | | | | [address] | | | | + + + + + + + + | Specimen | + + | | + + + + + + + | Performing | Address | City/State/Zipcode | Phone Number | | Organization | | | | + + + + + | [facility] | [address] | [place] [address] | [phone] | + + + + + CBC [...] | | | Absolute | performed at [facility];[address] | K/uL | LABORATORY | | | | [address];[place], [place] | | | | | | [address] | | | | + + + + + + + + | Specimen | + + | Blood | + + + + + + + | Performing | Address | City/State/Zipcode | Phone Number | | Organization | | | | + + + + + | [facility] | [address] | [place] [address] | [phone] | + + + + + POC Glucose (12/29/2019 11:56 PM PDT) + + + + + + | Component | Value | Ref Range | Performed | Pathologist | | | | | At | Signature | + + + + + + | Glucose, | 109 (H)Comment: Testing | 65 - 99 mg/dL | [facility] | | | POC | performed at [facility];[address] | | LABORATORY | | | | [address];[place] | | | | | | [address] | | | | + + + + + + + + | Specimen | + + | | + + + + + + + | Performing | Address | City/State/Zipcode | Phone Number | | Organization | | | | + + + + + | [facility] | [address] | [place] [address] | [phone] | + + + + + Hemoglobin [...] [facility] | | | | performed at [facility];[address] | | LABORATORY | | | | [address];[place] | | | | | | [address] | | | | + + + + + + + + | Specimen | + + | Blood | + + + + + + + | Performing | Address | City/State/Zipcode | Phone Number | | Organization | | | | + + + + + | [facility] | [address] | [place] [address] | [phone] | + + + + + POC Glucose (12/29/2019 6:06 PM PDT) + + + + + + | Component | Value | Ref Range | Performed | Pathologist | | | | | At | Signature | + + + + + + | Glucose, | 128 (H)Comment: Testing | 65 - 99 mg/dL | [facility] | | | POC | performed at [facility];[address] | | LABORATORY | | | | [address];[place] | | | | | | [address] | | | | + + + + + + + + | Specimen | + + | | + + + + + + + | Performing | Address | City/State/Zipcode | Phone Number | | Organization | | | | + + + + + | [facility] | [address] | [place] [address] | [phone] | + + + + + Hemoglobin [...] [facility] | | | | performed at [facility];[address] | | LABORATORY | | | | [address];[place] | | | | | | [address] | | | | + + + + + + + + | Specimen | + + | Blood | + + + + + + + | Performing | Address | City/State/Zipcode | Phone Number | | Organization | | | | + + + + + | [facility] | [address] | [place] [address] | [phone] | + + + + + POC [...] | | | POC | performed at [facility];[address] | | LABORATORY | | | | [address];[place] | | | | | | [address] | | | | + + + + + + + + | Specimen | + + | | + + + + + + + | Performing | Address | City/State/Zipcode | Phone Number | | Organization | | | | + + + + + | [facility] | [address] | [place] [address] | [phone] | + + + + + POC [...] | | | POC | performed at [facility];[address] | | LABORATORY | | | | [address];[place], [place] | | | | | | [address] | | | | + + + + + + + + | Specimen | + + | | + + + + + + + | Performing | Address | City/State/Zipcode | Phone Number | | Organization | | | | + + + + + | [facility] | [address] | [place] [address] | [phone] | + + + + + Surgical [...] in two | | | containers, labeled "GretchenlailaAndres." A. The specimen, | | | labeled [...] | | technical component was performed by [facility], [address] [place] [address] | | | [place] [address] (Adjudication Specialist: Padmini Sellers MD; CLIA# | | | [id number]). Professional interpretation was performed [facility] | | | [address], | | | [place] [address] (Adjudication Specialist: Oscar Maynard M.D.; CLIA#: | | | [id number]). Diagnostician: Padmini Sellers | | | MDPathologistElectronically [...] | |The technical component was performed by [facility], [address] [place] [address] (Adjudication Specialist: Padmini Sellers MD; CLIA# [id number]). Professional interpretation was performed by | | |[facility] [address] (Adjudication Specialist: Oscar Maynard M.D.; CLIA#: [id number]). | | | | | |Diagnostician: Padmini [...] + + | [facility] | [facility] | | [facility] | [facility] | | CenterGastroenterology | | | Patient Name: Andres Guzmán | | | Procedure Date: 12/29/2019 8:36 AMMRN: [id number] | | | of : 1930 | [...] the anesthesiologist and the | | | machine tool technician instructor in the pre-procedure area in the procedure [...] | | | with Gold probe 7 [place] x 5 pulses was successful with | [...] | | AMNumber of Addenda: 0 [facility] | | | - Check hemoglobin q 6 hours for one day. | | | | | | | | |LAMONT HERNANDEZ MD | | |12/29/2019 10:19:54 AM | | |This report has been signed electronically. | | | | | |Note Initiated On: 12/29/2019 8:36 AM | | |Number of Addenda: 0 | | | | | | [facility] | | + + + + [...] [facility] | | | | performed at [facility];[address] | | LABORATORY | | | | [address];[place] | | | | | | [address] | | | | + + + + + + + + | Specimen | + + | Blood | + + + + + + + | Performing | Address | City/State/Zipcode | Phone Number | | Organization | | | | + + + + + | [facility] | [address] | [place] [address] | [phone] | + + + + + POC [...] | | | POC | performed at [facility];[address] | | LABORATORY | | | | [address];[place], [place] | | | | | | [address] | | | | + + + + + + + + | Specimen | + + | | + + + + + + + | Performing | Address | City/State/Zipcode | Phone Number | | Organization | | | | + + + + + | [facility] | [address] | [place] [address] | [phone] | + + + + + CBC [...] | | | Absolute | performed at [facility];[address] | K/uL | LABORATORY | | | | [address];[place], [place] | | | | | | [address] | | | | + + + + + + + + | Specimen | + + | Blood | + + + + + + + | Performing | Address | City/State/Zipcode | Phone Number | | Organization | | | | + + + + + | [facility] | [address] | [place] [address] | [phone] | + + + + + Protime [...] | | | | | performed at [facility] | | | | | | [address] [facility];[place], [place] | | | | | | [address] | | | | + + + + + + + + | Specimen | + + | Blood | + + + + + + + | Performing | Address | City/State/Zipcode | Phone Number | | Organization | | | | + + + + + | [facility] | [address] | [place] [address] | [phone] | + + + + + Basic [...] 20 (L)Comment: GFR <60: | >60 | [facility] | | | GFR | CHRONIC KIDNEY [...] | | | | | | MDRD IDPA traceable | | | | | | equation.Testing | | | | | | performed at [facility];[address] | | | | | | [facility];[place], [place] | | | | | | [address] | | | | + + + + + + + + | Specimen | + + | Blood | + + + + + + + | Performing | Address | City/State/Zipcode | Phone Number | | Organization | | | | + + + + + | [facility] | [address] | [place] [address] | [phone] | + + + + + POC [...] | | | POC | performed at [facility];[address] | | LABORATORY | | | | [address];[place] | | | | | | [address] | | | | + + + + + + + + | Specimen | + + | | + + + + + + + | Performing | Address | City/State/Zipcode | Phone Number | | Organization | | | | + + + + + | [facility] | [address] | [place] [address] | [phone] | + + + + + Hemoglobin [...] [facility] | | | | performed at [facility] | | LABORATORY | | | | [address] [facility];[place], [place] | | | | | | [address] | | | | + + + + + + + + | Specimen | + + | Blood | + + + + + + + | Performing | Address | City/State/Zipcode | Phone Number | | Organization | | | | + + + + + | [facility] | [address] | [place] [address] | [phone] | + + + + + POC [...] | | | POC | performed at [facility];[address] | | LABORATORY | | | | [address];[place] | | | | | | [address] | | | | + + + + + + + + | Specimen | + + | | + + + + + + + | Performing | Address | City/State/Zipcode | Phone Number | | Organization | | | | + + + + + | [facility] | [address] | [place] [address] | [phone] | + + + + + Fecal [...] | | LABORATORY | | | | [facility];[address];[place] [address] | | | | + + + + + + + + | Specimen | + + | Stool - Stool | | specimen (specimen) | + + + + + + + | Performing | Address | City/State/Zipcode | Phone Number | | Organization | | | | + + + + + | [facility] | [address] | [place] [address] | [phone] | + + + + + POC [...] | | | POC | performed at [facility];[address] | | LABORATORY | | | | [address];[place], [place] | | | | | | [address] | | | | + + + + + + + + | Specimen | + + | | + + + + + + + | Performing | Address | City/State/Zipcode | Phone Number | | Organization | | | | + + + + + | [facility] | [address] | [place] [address] | [phone] | + + + + + Hemoglobin [...] [facility] | | | | performed at [facility];[address] | | LABORATORY | | | | [address];[place] | | | | | | [address] | | | | + + + + + + + + | Specimen | + + | Blood | + + + + + + + | Performing | Address | City/State/Zipcode | Phone Number | | Organization | | | | + + + + + | [facility] | [address] | [place] [address] | [phone] | + + + + + POC [...] | | | POC | performed at [facility];[address] | | LABORATORY | | | | [address];[place] | | | | | | [address] | | | | + + + + + + + + | Specimen | + + | | + + + + + + + | Performing | Address | City/State/Zipcode | Phone Number | | Organization | | | | + + + + + | [facility] | [address] | [place] [address] | [phone] | + + + + + POC Glucose (12/28/2019 7:03 AM PDT) + + + + + + | Component | Value | Ref Range | Performed | Pathologist | | | | | At | Signature | + + + + + + | Glucose, | 153 (H)Comment: Testing | 65 - 99 mg/dL | [facility] | | | POC | performed at [facility];[address] | | LABORATORY | | | | [address];[place] | | | | | | [address] | | | | + + + + + + + + | Specimen | + + | | + + + + + + + | Performing | Address | City/State/Zipcode | Phone Number | | Organization | | | | + + + + + | [facility] | [address] | [place] [address] | [phone] | + + + + + CBC [...] | | | Absolute | performed at [facility], [address] | K/uL | LABORATORY | | | | [place], | | | | | | [place] [address] | | | | + + + + + + + + | Specimen | + + | Blood | + + + + + + + | Performing | Address | City/State/Zipcode | Phone Number | | Organization | | | | + + + + + | [facility] | [address] | [place] [address] | [phone] | + + + + + Basic [...] 16 (L)Comment: GFR <60: | >60 | [facility] | | | GFR | CHRONIC KIDNEY [...] | | | | | performed at [facility], [address] | | | | | | [facility], | | | | | | [place] [address] | | | | + + + + + + + + | Specimen | + + | Blood | + + + + + + + | Performing | Address | City/State/Zipcode | Phone Number | | Organization | | | | + + + + + | [facility] | [address] | [place] [address] | [phone] | + + + + + POC Glucose (12/27/2019 8:44 PM PDT) + + + + + + | Component | Value | Ref Range | Performed | Pathologist | | | | | At | Signature | + + + + + + | Glucose, | 191 (H)Comment: Testing | 65 - 99 mg/dL | [facility] | | | POC | performed at [facility];[address] | | LABORATORY | | | | [address];[place] | | | | | | [address] | | | | + + + + + + + + | Specimen | + + | | + + + + + + + | Performing | Address | City/State/Zipcode | Phone Number | | Organization | | | | + + + + + | [facility] | [address] | [place] [address] | [phone] | + + + + + POC [...] | | | POC | performed at [facility];[address] | | LABORATORY | | | | [address];[place], [place] | | | | | | [address] | | | | + + + + + + + + | Specimen | + + | | + + + + + + + | Performing | Address | City/State/Zipcode | Phone Number | | Organization | | | | + + + + + | [facility] | [address] | [place] [address] | [phone] | + + + + + Red [...] BANK | Testing performed at | | [facility] | | | COMMENT | [facility];[address] | | LABORATORY | | | | [address];[place] [address] | | | | + + + + + + + + | Specimen | + + | | + + + + + + + | Performing | Address | City/State/Zipcode | Phone Number | | Organization | | | | + + + + + | [facility] | [address] | [place] [address] | [phone] | + + + + + Type [...] + + + | BB BAND | [id number] | | [facility] | | | | | | LABORATORY | | + + + + + + | UNIT # | [id number] | | [facility] | | | | [...] + + + | UNIT # | [id number] | | [facility] | | | | [...] | | | RESULT | performed at [facility] | | LABORATORY | | | | [address];[place], [place] | | | | | | [address] | | | | + + + + + + + + | Specimen | + + | Blood | + + + + + + + | Performing | Address | City/State/Zipcode | Phone Number | | Organization | | | | + + + + + | [facility] | [address] | [place] [address] | [phone] | + + + + + POC Glucose (12/27/2019 7:25 AM PDT) + + + + + + | Component | Value | Ref Range | Performed | Pathologist | | | | | At | Signature | + + + + + + | Glucose, | 186 (H)Comment: Testing | 65 - 99 mg/dL | [facility] | | | POC | performed at [facility];[address] | | LABORATORY | | | | [address];[place] | | | | | | [address] | | | | + + + + + + + + | Specimen | + + | | + + + + + + + | Performing | Address | City/State/Zipcode | Phone Number | | Organization | | | | + + + + + | [facility] | [address] | [place] [address] | [phone] | + + + + + CBC [...] | | | Absolute | performed at [facility], [address] | K/uL | LABORATORY | | | | [address], | | | | | | [place] [address] | | | | + + + + + + + + | Specimen | + + | | + + + + + + + | Performing | Address | City/State/Zipcode | Phone Number | | Organization | | | | + + + + + | [facility] | [address] | [place] [address] | [phone] | + + + + + Procalcitonin (12/27/2019 5:04 AM PDT) + + + + + + | Component | Value | Ref Range | Performed | Pathologist | | | | | At | Signature | + + + + + + | PROCALCITON | 0.41Comment: | <0.5 ng/mL | [facility] | | | IN | INTERPRETIVE | [...] | | | | | | at [facility];[address] [place] [address] | | | | | | [facility];[place] [address] | | | | + + + + + + + + | Specimen | + + | Blood | + + + + + + + | Performing | Address | City/State/Zipcode | Phone Number | | Organization | | | | + + + + + | [facility] | [address] | [place] [address] | [phone] | + + + + + Basic [...] | | | | | performed at [facility], [address] | | | | | | [facility], | | | | | | [place] [address] | | | | + + + + + + + + | Specimen | + + | Blood | + + + + + + + | Performing | Address | City/State/Zipcode | Phone Number | | Organization | | | | + + + + + | [facility] | [address] | [place] [address] | [phone] | + + + + + Vitamin D, Deficiency Screen (25-Hydroxy) (12/27/2019 5:04 AM PDT) + + + + + + | Component | Value | Ref Range | Performed | Pathologist | | | | | At | Signature | + + + + + + | Vit D, | 25.2 (L)Comment: Vitamin | 30.0 - 100.0 | [facility] | | | 25-Hydroxy | D deficiency has been | ng/mL | LABORATORY | | | | defined by the [place] | | | | | | [...] IOM | | | | | | ([place] [facility]). | | | | [...] | | | | | performed at [facility], | | | | | | [address], | | | | | | [facility] [address] | | | | + + + + + + + + | Specimen | + + | Blood | + + + + + + + | Performing | Address | City/State/Zipcode | Phone Number | | Organization | | | | + + + + + | [facility] | [address] | [place] [address] | [phone] | + + + + + Potassium (12/27/2019 12:08 AM PDT) + + + + + + | Component | Value | Ref Range | Performed | Pathologist | | | | | At | Signature | + + + + + + | K | 4.0Comment: Testing | 3.5 - 4.9 | [facility] | | | | performed at [facility];[address] | mmol/L | LABORATORY | | | | [address];[place] | | | | | | [address] | | | | + + + + + + + + | Specimen | + + | Blood | + + + + + + + | Performing | Address | City/State/Zipcode | Phone Number | | Organization | | | | + + + + + | [facility] | [address] [facility] | [place] [address] | [phone] | + + + + + Magnesium (12/27/2019 12:08 AM PDT) + + + + + + | Component | Value | Ref Range | Performed | Pathologist | | | | | At | Signature | + + + + + + | Magnesium | 2.2Comment: Testing | 1.7 - 2.4 mg/dL | [facility] | | | | performed at [facility];[address] | | LABORATORY | | | | [address];[place] | | | | | | [address] | | | | + + + + + + + + | Specimen | + + | Blood | + + + + + + + | Performing | Address | City/State/Zipcode | Phone Number | | Organization | | | | + + + + + | [facility] | [address] | [place] [address] | [phone] | + + + + + ECG [...] | | | POC | performed at [facility];[address] | | LABORATORY | | | | [address];[place] | | | | | | [address] | | | | + + + + + + + + | Specimen | + + | | + + + + + + + | Performing | Address | City/State/Zipcode | Phone Number | | Organization | | | | + + + + + | [facility] | [address] | [place] [address] | [phone] | + + + + + POC Glucose (12/26/2019 5:02 PM PDT) + + + + + + | Component | Value | Ref Range | Performed | Pathologist | | | | | At | Signature | + + + + + + | Glucose, | 154 (H)Comment: Testing | 65 - 99 mg/dL | [facility] | | | POC | performed at [facility];[address] | | LABORATORY | | | | [address];[place] | | | | | | [address] | | | | + + + + + + + + | Specimen | + + | | + + + + + + + | Performing | Address | City/State/Zipcode | Phone Number | | Organization | | | | + + + + + | [facility] | [address] | [place] [address] | [phone] | + + + + + Complement [...] | | | COMPLEMENT | performed at [facility], | | LABORATORY | | | | [address], | | | | | | [facility] [address] | | | | + + + + + + + + | Specimen | + + | | + + + + + + + | Performing | Address | City/State/Zipcode | Phone Number | | Organization | | | | + + + + + | [facility] | [address] | [place] [address] | [phone] | + + + + + Complement [...] | | | COMPLEMENT | performed at [facility], | | LABORATORY | | | | [address], | | | | | | [facility] [address] | | | | + + + + + + + + | Specimen | + + | | + + + + + + + | Performing | Address | City/State/Zipcode | Phone Number | | Organization | | | | + + + + + | [facility] | [address] | [place] [address] | [phone] | + + + + + POC [...] | | | POC | performed at [facility];[address] | | LABORATORY | | | | [address];[place] | | | | | | [address] | | | | + + + + + + + + | Specimen | + + | | + + + + + + + | Performing | Address | City/State/Zipcode | Phone Number | | Organization | | | | + + + + + | [facility] | [address] | [place] [address] | [phone] | + + + + + POC Glucose (12/26/2019 7:38 AM PDT) + + + + + + | Component | Value | Ref Range | Performed | Pathologist | | | | | At | Signature | + + + + + + | Glucose, | 138 (H)Comment: Testing | 65 - 99 mg/dL | [facility] | | | POC | performed at [facility];[address] | | LABORATORY | | | | [address];[place] | | | | | | [address] | | | | + + + + + + + + | Specimen | + + | | + + + + + + + | Performing | Address | City/State/Zipcode | Phone Number | | Organization | | | | + + + + + | [facility] | [address] | [place] [address] | [phone] | + + + + + Parathyroid Hormone, Intraoperative (12/26/2019 4:25 AM PDT) + + + + + + | Component | Value | Ref Range | Performed | Pathologist | | | | | At | Signature | + + + + + + | PTH Intact | 167.0 (H)Comment: | 8.7 - 79.6 | [facility] | | | | Testing performed at | pg/mL | LABORATORY | | | | [facility];[address];[place] [address] | | | | + + + + + + + + | Specimen | + + | | + + + + + + + | Performing | Address | City/State/Zipcode | Phone Number | | Organization | | | | + + + + + | [facility] | [address] | [place] [address] | [phone] | + + + + + Renal [...] | | | | | performed at [facility], [address] | | | | | [facility], | | | | | | [place] [address] | | | | + + + + + + + + | Specimen | + + | Blood | + + + + + + + | Performing | Address | City/State/Zipcode | Phone Number | | Organization | | | | + + + + + | [facility] | [address] | [place] [address] | [phone] | + + + + + POC [...] | | | POC | performed at [facility];[address] | | LABORATORY | | | | [address];[place], [place] | | | | | | [address] | | | | + + + + + + + + | Specimen | + + | | + + + + + + + | Performing | Address | City/State/Zipcode | Phone Number | | Organization | | | | + + + + + | [facility] | [address] | [place] [address] | [phone] | + + + + + POC [...] | | | POC | performed at [facility];[address] | | LABORATORY | | | | [address];[place] | | | | | | [address] | | | | + + + + + + + + | Specimen | + + | | + + + + + + + | Performing | Address | City/State/Zipcode | Phone Number | | Organization | | | | + + + + + | [facility] | [address] | [place] [address] | [phone] | + + + + + ECHO [...] | | | POC | performed at [facility];[address] | | LABORATORY | | | | [address];[place] | | | | | | [address] | | | | + + + + + + + + | Specimen | + + | | + + + + + + + | Performing | Address | City/State/Zipcode | Phone Number | | Organization | | | | + + + + + | [facility] | [address] | [place] [address] | [phone] | + + + + + POC Glucose (12/25/2019 7:56 AM PDT) + + + + + + | Component | Value | Ref Range | Performed | Pathologist | | | | | At | Signature | + + + + + + | Glucose, | 136 (H)Comment: Testing | 65 - 99 mg/dL | [facility] | | | POC | performed at [facility];[address] | | LABORATORY | | | | [address];[place], [place] | | | | | | [address] | | | | + + + + + + + + | Specimen | + + | | + + + + + + + | Performing | Address | City/State/Zipcode | Phone Number | | Organization | | | | + + + + + | [facility] | [address] | [place] [address] | [phone] | + + + + + CK Total (12/25/2019 4:25 AM PDT) + + + + + + | Component | Value | Ref Range | Performed | Pathologist | | | | | At | Signature | + + + + + + | CK TOTAL | 104Comment: Testing | 55 - 400 U/L | [facility] | | | | performed at [facility];8 | | LABORATORY | | | | [facility];[place], [place] | | | | | | [address] | | | | + + + + + + + + | Specimen | + + | Blood | + + + + + + + | Performing | Address | City/State/Zipcode | Phone Number | | Organization | | | | + + + + + | [facility] | [address] | [place] [address] | [phone] | + + + + + Renal [...] (H) | 2.3 - 4.8 mg/dL | [facility] | | | | | | LABORATORY | | + + + + + + | Estimated | 13 (L)Comment: GFR <60: | >60 | [facility] | | | GFR | CHRONIC KIDNEY [...] | | | | | performed at [facility], [address] | | | | | | [facility], | | | | | | [place] [address] | | | | + + + + + + + + | Specimen | + + | Blood | + + + + + + + | Performing | Address | City/State/Zipcode | Phone Number | | Organization | | | | + + + + + | [facility] | [address] | [place] [address] | [phone] | + + + + + Cytoplasmic [...] | | | | | with both AR-3 and | | | | | | [...] | <1:20Comment: The | Neg:<1:20 titer | [facility] | | | pANCA | atypical pANCA [...] | | | | | performed by [employer], | | | | | | [address], | | | | | | [facility] [address] | | | | + + + + + + + + | Specimen | + + | Blood | + + + + + + + | Performing | Address | City/State/Zipcode | Phone Number | | Organization | | | | + + + + + | [facility] | [address] | [place] [address] | [phone] | + + + + + Sedimentation Rate (12/25/2019 4:22 AM PDT) + + + + + + | Component | Value | Ref Range | Performed | Pathologist | | | | | At | Signature | + + + + + + | ESR | 6Comment: Testing | 0 - 20 mm/Hr | [facility] | | | | performed at [facility], [address] | | LABORATORY | | | | [address], | | | | | | [place] [address] | | | | + + + + + + + + | Specimen | + + | Blood | + + + + + + + | Performing | Address | City/State/Zipcode | Phone Number | | Organization | | | | + + + + + | [facility] | [address] | [place] [address] | [phone] | + + + + + Immunoglobulin, Free Light Chain (12/25/2019 4:22 AM PDT) + + + + + + | Component | Value | Ref Range | Performed | Pathologist | | | | | At | Signature | + + + + + + | [place] Free | 121.2 (H) | 3.3 - 19.4 mg/L | [facility] | | | Light | | | [...] + + + + + + | [place] | 1.25Comment: Testing | 0.26 - 1.65 | [facility] | | | a Free | [facility] | | LABORATORY | | | Light Chain | [place], [address] | | | | | Ratio | [place] [address] | | | | + + + + + + + + | Specimen | + + | Blood | + + + + + + + | Performing | Address | City/State/Zipcode | Phone Number | | Organization | | | | + + + + + | [facility] | [address] | [place] [address] | [phone] | + + + + + Glomerular [...] by | | | | | | [email or web address], [address] | | | | | | [place] | | | | | | [address] | | | | + + + + + + + + | Specimen | + + | Blood | + + + + + + + | Performing | Address | City/State/Zipcode | Phone Number | | Organization | | | | + + + + + | [facility] | [address] | [place] [address] | [phone] | + + + + + Hepatitis [...] | | | | | | 0.9The [facility] recommends | | | | | | that a positive HCV | | | | | | antibody resultbe | | | | | | followed up with a HCV | | | | | | Nucleic Acid | | | | | | Amplificationtest | | | | | | ([id number]).Testing | | | | | | performed at [facility], | | | | | | [address], | | | | | | [facility] [address] | | | | + + + + + + + + | Specimen | + + | Blood | + + + + + + + | Performing | Address | City/State/Zipcode | Phone Number | | Organization | | | | + + + + + | [facility] | [address] | [place] [address] | [phone] | + + + + + CK Total (12/25/2019 4:22 AM PDT) + + + + + + | Component | Value | Ref Range | Performed | Pathologist | | | | | At | Signature | + + + + + + | CK TOTAL | 100Comment: Testing | 55 - 400 U/L | [facility] | | | | performed at [facility];[address] | | LABORATORY | | | | [address];[place] | | | | | | [address] | | | | + + + + + + + + | Specimen | + + | Blood | + + + + + + + | Performing | Address | City/State/Zipcode | Phone Number | | Organization | | | | + + + + + | [facility] | [address] | [place] [address] | [phone] | + + + + + Lactate Dehydrogenase (12/25/2019 4:22 AM PDT) + + + + + + | Component | Value | Ref Range | Performed | Pathologist | | | | | At | Signature | + + + + + + | LDH TOTAL | 154Comment: Testing | 120 - 246 U/L | [facility] | | | | performed at [facility];[address] | | LABORATORY | | | | [address];[place], [place] | | | | | | [address] | | | | + + + + + + + + | Specimen | + + | Blood | + + + + + + + | Performing | Address | City/State/Zipcode | Phone Number | | Organization | | | | + + + + + | [facility] | [address] | [place] [address] | [phone] | + + + + + Magnesium (12/25/2019 4:22 AM PDT) + + + + + + | Component | Value | Ref Range | Performed | Pathologist | | | | | At | Signature | + + + + + + | Magnesium | 2.5 (H)Comment: Testing | 1.7 - 2.4 mg/dL | [facility] | | | | performed at [facility], [address] | | LABORATORY | | | | [address], | | | | | | [place] [address] | | | | + + + + + + + + | Specimen | + + | Blood | + + + + + + + | Performing | Address | City/State/Zipcode | Phone Number | | Organization | | | | + + + + + | [facility] | [address] | [place] [address] | [phone] | + + + + + Protein, Urine, Random (12/25/2019 12:01 AM PDT) + + + + + + | Component | Value | Ref Range | Performed | Pathologist | | | | | At | Signature | + + + + + + | Protein, | 131Comment: NO NORMAL | mg/dL | [facility] | | | Urine | RANGE ESTABLISHEDTesting | | LABORATORY | | | | performed at [facility], [address] | | | | | [address], | | | | | | [place] [address] | | | | + + + + + + + + | Specimen | + + | | + + + + + + + | Performing | Address | City/State/Zipcode | Phone Number | | Organization | | | | + + + + + | [facility] | [address] | [place] [address] | [phone] | + + + + + Creatinine, Urine, Random (12/25/2019 12:01 AM PDT) + + + + + + | Component | Value | Ref Range | Performed | Pathologist | | | | | At | Signature | + + + + + + | Creatinine, | 139.0Comment: NO NORMAL | mg/dL | [facility] | | | random | RANGE ESTABLISHEDTesting | | LABORATORY | | | urine | performed at [facility], [address] | | | | | [address], | | | | | | [place] [address] | | | | + + + + + + + + | Specimen | + + | | + + + + + + + | Performing | Address | City/State/Zipcode | Phone Number | | Organization | | | | + + + + + | [facility] | [address] | [place] [address] | [phone] | + + + + + Protein/Creatinine Ratio, Urine (12/25/2019 12:01 AM PDT) + + + + + + | Component | Value | Ref Range | Performed | Pathologist | | | | | At | Signature | + + + + + + | PRO/CREA | 0.942Comment: Testing | | [facility] | | | RATIO,URINE | performed at [facility], [address] | | LABORATORY | | | | [address], | | | | | | [place] [address] | | | | + + + + + + + + | Specimen | + + | Urine | + + + + + + + | Performing | Address | City/State/Zipcode | Phone Number | | Organization | | | | + + + + + | [facility] | [address] | [place] [address] | [phone] | + + + + + POC Glucose (12/24/2019 8:55 PM PDT) + + + + + + | Component | Value | Ref Range | Performed | Pathologist | | | | | At | Signature | + + + + + + | Glucose, | 149 (H)Comment: Testing | 65 - 99 mg/dL | [facility] | | | POC | performed at [facility];[address] | | LABORATORY | | | | [address];[place] | | | | | | [address] | | | | + + + + + + + + | Specimen | + + | | + + + + + + + | Performing | Address | City/State/Zipcode | Phone Number | | Organization | | | | + + + + + | [facility] | [address] | [place] [address] | [phone] | + + + + + POC Glucose (12/24/2019 5:14 PM PDT) + + + + + + | Component | Value | Ref Range | Performed | Pathologist | | | | | At | Signature | + + + + + + | Glucose, | 136 (H)Comment: Testing | 65 - 99 mg/dL | [facility] | | | POC | performed at [facility];[address] | | LABORATORY | | | | [address];[place] | | | | | | [address] | | | | + + + + + + + + | Specimen | + + | | + + + + + + + | Performing | Address | City/State/Zipcode | Phone Number | | Organization | | | | + + + + + | [facility] | [address] | [place] [address] | [phone] | + + + + + ECG [...] | Procedure Note | + + | Okbe, Rad Results In - 12/24/2019 3:24 PM [...] | | | Arterial, | performed at [facility];[address] | | LABORATORY | | | POC | [address];[place] | | | | | | [address] | | | | + + + + + + + + | Specimen | + + | | + + + + + + + | Performing | Address | City/State/Zipcode | Phone Number | | Organization | | | | + + + + + | [facility] | [address] | [place] [address] | [phone] | + + + + + Coronavirus (COVID-19) NAAT (12/24/2019 1:10 PM PDT) + + + + + + | Component | Value | Ref Range | Performed | Pathologist | | | | | At | Signature | + + + + + + | SARS-CoV-2, | NEGATIVEComment: Testing | NEG | [facility] | | | YOU | performed at [facility];[address] | | LABORATORY | | | (COVID-19) | [address];[place], [place] | | | | | | [address] | | | | + + + + + + + + | Specimen | + + | Tissue - Entire | | nasopharynx (body | | structure) | + + + + + + + | Performing | Address | City/State/Zipcode | Phone Number | | Organization | | | | + + + + + | [facility] | [address] | [place] [address] | [phone] | + + + + + Culture, [...] | | LABORATORY | | | | Blvd;[place] [address] | | | | + + + + + + | RESULT | NO GROWTH 6 DAYS | | [facility] | | | | | | LABORATORY | | + + + + + + | RESULT | Testing performed at | | [facility] | | | | [facility], [address] | | LABORATORY | | | | [place] | | | | | | [id number]: Testing | | | | | | performed at [facility], [address] | | | | | | [address] [place] | | | | | | [address] | | | | + + + + + + + + | Specimen | + + | Blood - Peripheral | | blood specimen | | (specimen) | + + + + + + + | Performing | Address | City/State/Zipcode | Phone Number | | Organization | | | | + + + + + | [facility] | [address] | [place] [address] | [phone] | + + + + + Culture, [...] | | LABORATORY | | | | [address];[place] [address] | | | | + + + + + + | RESULT | NO GROWTH 6 DAYS | | [facility] | | | | | | LABORATORY | | + + + + + + | RESULT | Testing performed at | | [facility] | | | | [facility], [address] | | LABORATORY | | | | [place], [place] | | | | | | [id number]: Testing | | | | | | performed at [facility], [address] | | | | | | [address], [place] | | | | | | [address] | | | | + + + [...] [facility] | [address] | [place] [address] | [phone] | + + + + + Urinalysis [...] - 1.030 | [facility] | | | Mcdaniel, | | | LABORATORY | | | [...] | | | Urine | performed at [facility], [address] | | LABORATORY | | | | [address], | | | | | | [place] [address] | | | | + + + [...] | + + + + + | [facility] | [address] | [place] [address] | [phone] | + + + + + Sodium, Urine, Random (12/24/2019 12:45 PM PDT) + + + + + + | Component | Value | Ref Range | Performed | Pathologist | | | | | At | Signature | + + + + + + | Sodium, | 52Comment: NO NORMAL | mmol/L | [facility] | | | Random | [facility] ESTABLISHEDTesting | | LABORATORY | | | urine | performed at [facility], [address] | | | | | | [address], | | | | | | [place] [address] | | | | + + + [...] | + + + + + | [facility] | [address] | [place] [address] | [phone] | + + + + + Creatinine, [...] | | | urine | performed at [facility], [address] | | | | | | [address], | | | | | | [place] [address] | | | | + + + [...] | + + + + + | [facility] | [address] | [place] [address] | [phone] | + + + + + Lactic Acid (12/24/2019 12:27 PM PDT) + + + + + + | Component | Value | Ref Range | Performed | Pathologist | | | | | At | Signature | + + + + + + | Lactate, | 1.6Comment: Testing | 0.4 - 2.0 | [facility] | | | Serum | performed at [facility];[address] | mmol/L | LABORATORY | | | | [address];[place] | | | | | | [address] | | | | + + + + + + + + | Specimen | + + | Blood | + + + + + + + | Performing | Address | City/State/Zipcode | Phone Number | | Organization | | | | + + + + + | [facility] | [address] | [place] [address] | [phone] | + + + + + Procalcitonin [...] | | | | | | at [facility];[address] | | | | | | [address];[place] [address] | | | | + + + + + + + + | Specimen | + + | Blood | + + + + + + + | Performing | Address | City/State/Zipcode | Phone Number | | Organization | | | | + + + + + | [facility] | [address] | [place] [address] | [phone] | + + + + + POC [...] | | | POC | performed at [facility];[address] | | LABORATORY | | | | [address];[place] | | | | | | [address] | | | | + + + + + + + + | Specimen | + + | | + + + + + + + | Performing | Address | City/State/Zipcode | Phone Number | | Organization | | | | + + + + + | [facility] | [address] [facility] | [place] [address] | [phone] | + + + + + POC Glucose (12/24/2019 8:32 AM PDT) + + + + + + | Component | Value | Ref Range | Performed | Pathologist | | | | | At | Signature | + + + + + + | Glucose, | 147 (H)Comment: Testing | 65 - 99 mg/dL | [facility] | | | POC | performed at [facility];[address] | | LABORATORY | | | | [address];[place] | | | | | | [address] | | | | + + + + + + + + | Specimen | + + | | + + + + + + + | Performing | Address | City/State/Zipcode | Phone Number | | Organization | | | | + + + + + | [facility] | [address] | [place] [address] | [phone] | + + + + + CBC [...] LABORATORY | | | | performed at [facility];[address] | | | | | | [address];[place] | | | | | | [address] | | | | + + + + + + + + | Specimen | + + | Blood | + + + + + + + | Performing | Address | City/State/Zipcode | Phone Number | | Organization | | | | + + + + + | [facility] | [address] | [place] [address] | [phone] | + + + + + Basic [...] | | | | | performed at [facility], [address] | | | | | | [address], | | | | | | [place] [address] | | | | + + + + + + + + | Specimen | + + | Blood | + + + + + + + | Performing | Address | City/State/Zipcode | Phone Number | | Organization | | | | + + + + + | [facility] | [address] | [place] [address] | [phone] | + + + + + POC [...] | | | POC | performed at [facility];[address] | | LABORATORY | | | | [address];[place], [place] | | | | | | [address] | | | | + + + + + + + + | Specimen | + + | | + + + + + + + | Performing | Address | City/State/Zipcode | Phone Number | | Organization | | | | + + + + + | [facility] | [address] | [place] [address] | [phone] | + + + + + POC Glucose (12/23/2019 4:35 PM PDT) + + + + + + | Component | Value | Ref Range | Performed | Pathologist | | | | | At | Signature | + + + + + + | Glucose, | 129 (H)Comment: Testing | 65 - 99 mg/dL | [facility] | | | POC | performed at [facility];[address] | | LABORATORY | | | | [address];[place] | | | | | | [address] | | | | + + + + + + + + | Specimen | + + | | + + + + + + + | Performing | Address | City/State/Zipcode | Phone Number | | Organization | | | | + + + + + | [facility] | [address] | [place] [address] | [phone] | + + + + + POC Glucose (12/23/2019 2:05 PM PDT) + + + + + + | Component | Value | Ref Range | Performed | Pathologist | | | | | At | Signature | + + + + + + | Glucose, | 158 (H)Comment: Testing | 65 - 99 mg/dL | [facility] | | | POC | performed at [facility];[address] | | LABORATORY | | | | [address];[place], [place] | | | | | | [address] | | | | + + + + + + + + | Specimen | + + | | + + + + + + + | Performing | Address | City/State/Zipcode | Phone Number | | Organization | | | | + + + + + | [facility] | [address] | [place] [address] | [phone] | + + + + + POC [...] | | | POC | performed at [facility];[address] | | LABORATORY | | | | [address];[place], [place] | | | | | | [address] | | | | + + + + + + + + | Specimen | + + | | + + + + + + + | Performing | Address | City/State/Zipcode | Phone Number | | Organization | | | | + + + + + | [facility] | [address] | [place] [address] | [phone] | + + + + + Basic [...] 22 (L)Comment: GFR <60: | >60 | [facility] | | | GFR | CHRONIC KIDNEY [...] | | | | | performed at [facility];[address] | | | | | | [facility];[place], [place] | | | | | | [address] | | | | + + + + + + + + | Specimen | + + | Blood | + + + + + + + | Performing | Address | City/State/Zipcode | Phone Number | | Organization | | | | + + + + + | [facility] | [address] | [place] [address] | [phone] | + + + + + Phosphorus (12/23/2019 4:04 AM PDT) + + + + + + | Component | Value | Ref Range | Performed | Pathologist | | | | | At | Signature | + + + + + + | Phosphorus | 4.6Comment: Testing | 2.3 - 4.8 mg/dL | [facility] | | | | performed at [facility];[address] | | LABORATORY | | | | [address];[place] | | | | | | [address] | | | | + + + + + + + + | Specimen | + + | Blood | + + + + + + + | Performing | Address | City/State/Zipcode | Phone Number | | Organization | | | | + + + + + | [facility] | [address] | [place] [address] | [phone] | + + + + + Magnesium (12/23/2019 4:04 AM PDT) + + + + + + | Component | Value | Ref Range | Performed | Pathologist | | | | | At | Signature | + + + + + + | Magnesium | 2.1Comment: Testing | 1.7 - 2.4 mg/dL | [facility] | | | | performed at [facility];[address] | | LABORATORY | | | | [address];[place], [place] | | | | | | [address] | | | | + + + + + + + + | Specimen | + + | Blood | + + + + + + + | Performing | Address | City/State/Zipcode | Phone Number | | Organization | | | | + + + + + | [facility] | [address] | [place] [address] | [phone] | + + + + + CBC [...] LABORATORY | | | | performed at [facility];[address] | | | | | | [address];[place] | | | | | | [address] | | | | + + + + + + + + | Specimen | + + | Blood | + + + + + + + | Performing | Address | City/State/Zipcode | Phone Number | | Organization | | | | + + + + + | [facility] | [address] | [place] [address] | [phone] | + + + + + Hemoglobin (12/22/2019 9:37 PM PDT) + + + + + + | Component | Value | Ref Range | Performed | Pathologist | | | | | At | Signature | + + + + + + | Hemoglobin | 9.1 (L)Comment: Testing | 13.2 - 17.0 | [facility] | | | | performed at [facility];888 | g/dL | LABORATORY | | | | Adam Mccain;[place] | | | | | | [address] | | | | + + + + + + + + | Specimen | + + | Blood | + + + + + + + | Performing | Address | City/State/Zipcode | Phone Number | | Organization | | | | + + + + + | [facility] | [address] | [place] [address] | [phone] | + + + + + Hematocrit (12/22/2019 9:37 PM PDT) + + + + + + | Component | Value | Ref Range | Performed | Pathologist | | | | | At | Signature | + + + + + + | Hematocrit | 27.4 (L)Comment: Testing | 39.0 - 50.0 % | [facility] | | | | performed at [facility] | | LABORATORY | | | | [facility];[place], [place] | | | | | | [address] | | | | + + + + + + + + | Specimen | + + | Blood | + + + + + + + | Performing | Address | City/State/Zipcode | Phone Number | | Organization | | | | + + + + + | [facility] | [address] | [place] [address] | [phone] | + + + + + POC [...] | | | POC | performed at [facility];[address] | | LABORATORY | | | | [address];[place] | | | | | | [address] | | | | + + + + + + + + | Specimen | + + | | + + + + + + + | Performing | Address | City/State/Zipcode | Phone Number | | Organization | | | | + + + + + | [facility] | [address] | [place] [address] | [phone] | + + + + + POC Glucose (12/22/2019 5:32 PM PDT) + + + + + + | Component | Value | Ref Range | Performed | Pathologist | | | | | At | Signature | + + + + + + | Glucose, | 153 (H)Comment: Testing | 65 - 99 mg/dL | [facility] | | | POC | performed at [facility];[address] | | LABORATORY | | | | Adam Mccain;[place] | | | | | | [phone] | | | | + + + + + + + + | Specimen | + + | | + + + + + + + | Performing | Address | City/State/Zipcode | Phone Number | | Organization | | | | + + + + + | [facility] | [address] | [place] [address] | [phone] | + + + + + Red [...] BANK | Testing performed at | | [facility] | | | COMMENT | [facility];[address] | | LABORATORY | | | | [place] [address] | | | | + + + + + + + + | Specimen | + + | | + + + + + + + | Performing | Address | City/State/Zipcode | Phone Number | | Organization | | | | + + + + + | [facility] | [address] | [place] [address] | [phone] | + + + + + POC [...] | | | POC | performed at [facility];[address] | | LABORATORY | | | | [address];[place], [place] | | | | | | [address] | | | | + + + + + + + + | Specimen | + + | | + + + + + + + | Performing | Address | City/State/Zipcode | Phone Number | | Organization | | | | + + + + + | [facility] | [address] | [place] [address] | [phone] | + + + + + [place] [...] | | | POC | performed at [facility];[address] | g/dL | LABORATORY | | | | [address];[place], [place] | | | | | | [address] | | | | + + + + + + + + | Specimen | + + | | + + + + + + + | Performing | Address | City/State/Zipcode | Phone Number | | Organization | | | | + + + + + | [facility] | [address] | [place] [address] | [phone] | + + + + + POC ISTAT, CG8, Arterial (12/22/2019 9:23 AM PDT) + + + + + + | Component | Value | Ref Range | Performed | Pathologist | | | | | At | Signature | + + + + + + | pH, | 7.314 (L) | 7.350 - 7.450 | [facility] | | | Arterial, | | | [...] | | | POC | performed at [facility];888 | g/dL | LABORATORY | | | | [address];[place] | | | | | | [address] | | | | + + + + + + + + | Specimen | + + | | + + + + + + + | Performing | Address | City/State/Zipcode | Phone Number | | Organization | | | | + + + + + | [facility] | [address] | [place] [address] | [phone] | + + + + + POC [...] (L)Comment: Testing | 13.7 - 16.7 | [facility] | | | POC | performed at [facility];888 | g/dL | LABORATORY | | | | [address];[place], [place] | | | | | | [address] | | | | + + + + + + + + | Specimen | + + | | + + + + + + + | Performing | Address | City/State/Zipcode | Phone Number | | Organization | | | | + + + + + | [facility] | [address] | [place] [address] | [phone] | + + + + + POC [...] | | | POC | performed at [facility];888 | g/dL | LABORATORY | | | | [address];[place], [place] | | | | | | [address] | | | | + + + + + + + + | Specimen | + + | | + + + + + + + | Performing | Address | City/State/Zipcode | Phone Number | | Organization | | | | + + + + + | [facility] | [address] | [place] [address] | [phone] | + + + + + Type [...] + + + | BB BAND | [id number] | | [facility] | | | | | | LABORATORY | | + + + + + + | UNIT # | [id number] | | [facility] | | | | [...] | | | RESULT | performed at [facility] | | LABORATORY | | | | [address];[place], [place] | | | | | | [address] | | | | + + + + + + | UNIT # | [id number] | | [facility] | | | | [...] | + + + + + | [facility] | [address] | [place] [address] | [phone] | + + + + + POC Glucose (12/22/2019 5:35 AM PDT) + + + + + + | Component | Value | Ref Range | Performed | Pathologist | | | | | At | Signature | + + + + + + | Glucose, | 155 (H)Comment: Testing | 65 - 99 mg/dL | [facility] | | | POC | performed at [facility];[address] | | LABORATORY | | | | [address];[place], [place] | | | | | | [address] | | | | + + + + + + + + | Specimen | + + | | + + + + + + + | Performing | Address | City/State/Zipcode | Phone Number | | Organization | | | | + + + + + | [facility] | [address] | [place] [address] | [phone] | + + + + + Shine [...] | | | | | performed at [facility] | | | | | | [address];[place], [place] | | | | | | [address] | | | | + + + + + + + + | Specimen | + + | Blood | + + + + + + + | Performing | Address | City/State/Zipcode | Phone Number | | Organization | | | | + + + + + | [facility] | [address] | [place] [address] | [phone] | + + + + + CBC [...] [place], | | | | | | [place] [address] | | | | + + + + + + + + | Specimen | + + | Blood | + + + + + + + | Performing | Address | City/State/Zipcode | Phone Number | | Organization | | | | + + + + + | [facility] | [address] | [place] [address] | [phone] | + + + + + Magnesium (12/22/2019 5:26 AM PDT) + + + + + + | Component | Value | Ref Range | Performed | Pathologist | | | | | At | Signature | + + + + + + | Magnesium | 2.6 (H)Comment: Testing | 1.7 - 2.4 mg/dL | [facility] | | | | performed at [facility], [address] | | LABORATORY | | | | [address], | | | | | | [place] [address] | | | | + + + + + + + + | Specimen | + + | Blood | + + + + + + + | Performing | Address | City/State/Zipcode | Phone Number | | Organization | | | | + + + + + | [facility] | [address] | [place] [address] | [phone] | + + + + + Basic [...] 22 (L)Comment: GFR <60: | >60 | [facility] | | | GFR | CHRONIC KIDNEY [...] | | | | | | MDRD IDPA traceable | | | | | | equation.Testing | | | | | | performed at [facility], [address] | | | | | | [facility], | | | | | | [place] [address] | | | | + + + + + + + + | Specimen | + + | Blood | + + + + + + + | Performing | Address | City/State/Zipcode | Phone Number | | Organization | | | | + + + + + | [facility] | [address] | [place] [address] | [phone] | + + + + + POC [...] | | | POC | performed at [facility];[address] | | LABORATORY | | | | [address];[place] | | | | | | [address] | | | | + + + + + + + + | Specimen | + + | | + + + + + + + | Performing | Address | City/State/Zipcode | Phone Number | | Organization | | | | + + + + + | [facility] | [address] | [place] [address] | [phone] | + + + + + POC Glucose (12/21/2019 9:11 PM PDT) + + + + + + | Component | Value | Ref Range | Performed | Pathologist | | | | | At | Signature | + + + + + + | Glucose, | 182 (H)Comment: Testing | 65 - 99 mg/dL | [facility] | | | POC | performed at [facility];[address] | | LABORATORY | | | | [address];[place] | | | | | | [address] | | | | + + + + + + + + | Specimen | + + | | + + + + + + + | Performing | Address | City/State/Zipcode | Phone Number | | Organization | | | | + + + + + | [facility] | [address] | [place] [address] | [phone] | + + + + + documented [...] | | | | | | longer, [id number] use of | | | | | [...] 20 3:26 | | | | | [facility] 12/27/19 at 1445, For 1 dose, | [...] | | | | | ineffective use [place] 10/ if | | | | | [...] | | | | | | | 5994-9168 Use NIGHT DOSE for | | | | | | | doses scheduled: HS, | | | | | | | Nighttime 7946-9816 If the BG is | | | [...] | | | | | Minutes, ONCE, [facility] 12/26/19 at | | | | [...]
--- OUTSIDE RECORDS SUMMARY | ~2020-01-27 | XMS | Encounter Summary ---
Demographics + + + | Address | [address] | | | [place] [address] | + + + | Home Phone [...] [place] | | | | | [address] | | + + + + + | Deanna Lawson | ECON | Unknown | | + + + + + Care Team Providers + +------+ + | Care Editorial Specialist Name | Role | Phone | + +------+ + | Barbara Gilman MD | PCP | | + +------+ + Encounter Details +--------+ + + + + | Date | Type | Department | Care Team | Description | +--------+ + + + + | 06/25/ | Orders Only | [facility] | Charlee Oswald | | | 2018 | | CARDIOLOGY [place] | [address] | | | | | [address] | [address] | | | | | [address] | [place] [address] | | | | | [place] | [phone] | | | | | [address] | | | | | | [phone] | | | +--------+ + + + [...] [place] | | | | | | [address] | | | | | | | | +--------+ + + + + | 02/05/ | Office | Cardiology | Dina Sanchez DO | | | 2019 | Visit | | [address] | | | | | | [place] | | | | | | [address] | | | | | | | | +--------+ + + + + | 02/09/ | Procedure | Cardiology | | | | 2019 | visit | | | | +--------+ + + + + | 02/17/ | Office | Orthopedic Surgery | Melquiades Baez | | 2019 | Visit | | [address] | | | | | | [address] [place], | | | | | | [place] [address] | | | | | | [phone] | | | | | | | | +--------+ + + + + | 03/09/ | Office | Nephrology | Isiah Jade MD | | | 2019 | Visit | | [address] [facility] | | | | | | [address] [place] | | | | | | [address] | | | | | | | [...]
--- OUTSIDE RECORDS SUMMARY | ~2020-01-27 | XMS | Encounter Summary ---
Demographics + + + | Address | [address] | | | [place] [address] | + + + | Home Phone [...] [place] | | | | | [address] | | + + + + + | Deanna Lawson | ECON | Unknown | | + + + + + Care Team Providers + +------+ + | Care Electrical Troubleshooter Name | Role | Phone | + +------+ + | Barbara Gilman MD | PCP | | + +------+ + Reason for Visit + + + | Reason | Comments | + + + | Device Check | [place] pacemaker in office device check w/Jay | | (In-office) | | + + + Encounter Details +--------+ + + + + | Date | Type | Department | Care Team | Description | +--------+ + + + + | 05/07/ | Procedure | [facility] | Enoch Thompson, | Cardiac pacemaker in | | 2019 | visit | CARDIOLOGY [place] | MD [address] | situ (Primary Dx); | | | | [address] | [address] [place] | 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); | | | | [address] | | Chronic diastolic | | | | [phone] | | heart failure (HCC) | +--------+ [...] 2020 | Visit | | [address] | | | | | | [address] [place] | | | | | | [address] | | | | | | | | +--------+ + + + + | 02/05/ | Office | Cardiology | Dina Sanchez DO | | | 2019 | Visit | | [address] | | | | | | [place] | | | | | | [address] | | | | | | | [...] | | | | | | [place] [address] | | | | | | [phone] | | | | | | | | +--------+ + + + + | 03/09/ | Office | Nephrology | Isiah Jade MD | | | 2019 | Visit | | [address] [facility] | | | | | | [address] [place] | | | | | | [address] | | | | | | | [...] results section. | | | | | ([facility]) Chronic | | | |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 | | | | | | failure ([facility]) | | + +--------+ + + + [...] | | scheduled encounter for additional details. automatic bandsaw tender: Thi Burch RN | | | | | |See device data attached to scheduled encounter for additional | | |details. | | | | | |automatic bandsaw tender: Thi Burch RN | | | | [...]
--- OUTSIDE RECORDS SUMMARY | ~2020-01-27 | XMS | Encounter Summary ---
Demographics + + + | Address | [address] | | | [place] [address] | + + + | Home Phone [...] [place] | | | | | [address] | | + + + + + | Deanna Lawson | ECON | Unknown | | + + + + + Care Team Providers + +------+ + | Care Manager Advanced Name | Role | Phone | + +------+ + | Barbara Gilman MD | PCP | | + +------+ + Reason for Visit + + + | Reason | Comments | + + + | Device Check | [place] pacemaker in office device check w/Jay | | (In-office) | | + + + Encounter Details +--------+ + + + + | Date | Type | Department | Care Team | Description | +--------+ + + + + | 05/07/ | Procedure | 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); | | | | [address] | | Chronic diastolic | | | | [phone] | | heart failure (HCC) | +--------+ [...] 2020 | Visit | | [address] [facility] | | | | | | [address] [place] | | | | | | [address] | | | | | | | | +--------+ + + + + | 02/05/ | Office | Cardiology | Dina Sanchez DO | | | 2019 | Visit | | [address] | | | | | | [place] | | | | | | [address] | | | | | | | [...] | | | | | | [place] [address] | | | | | | [phone] | | | | | | | | +--------+ + + + + | 03/09/ | Office | Nephrology | Isiah Jade MD | | | 2019 | Visit | | [address] [facility] | | | | | | [address] [place] | | | | | | [address] | | | | | | | [...] results section. | | | | | ([facility]) Chronic | | | |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 | | | | | | failure ([facility]) | | + +--------+ + + + [...] | | scheduled encounter for additional details. woodworking machine offbearer: Thi Burch RN | | | | | |See device data attached to scheduled encounter for additional | | |details. | | | | | |woodworking machine offbearer: Thi Burch RN | | | | [...]
--- OUTSIDE RECORDS SUMMARY | ~2020-01-27 | XMS | Encounter Summary ---
Demographics + + + | Address | [address] | | | [place] [address] | + + + | Home Phone [...] [place] | | | | | [address] | | + + + + + | Deanna Lawson | ECON | Unknown | | + + + + + Care Team Providers + +------+ + | Care Bung Dropper Name | Role | Phone | + +------+ + | Barbara Gilman MD | PCP | | + +------+ + Encounter Details +--------+ + + + + | Date | Type | Department | Care Team | Description | +--------+ + + + + | 09/02/ | Orders Only | [facility] | Enoch Thompson, | | | 2019 | | CARDIOLOGY [place] | [address] | | | | | [address] | [place], [place] | | | | | [place], [place] | [address] | | | | | [address] | | | | | | [phone] | | | +--------+ + + + [...] | 01/29/ | Office | Nephrology | Isiha Jade MD | | | 2019 | Visit | | [address] [facility] | | | | | | [address] [place] | | | | | | [address] | | | | | | | | +--------+ + + + + | 02/05/ | Office | Cardiology | Dina Sanchez DO | | | 2019 | Visit | | [address] | | | | | | [place] | | | | | | [address] | | | | | | | | +--------+ + + + + | 02/09/ | Procedure | Cardiology | | | | 2019 | visit | | | | +--------+ + + + + | 02/17/ | Office | Orthopedic Surgery | SashaMelquiades | | | 2019 | Visit | | [address] | | | | | | [address] [place], | | | | | | [place] [address] | | | | | | [phone] | | | | | | | | +--------+ + + + + | 03/09/ | Office | Nephrology | Isiah Jade MD | | | 2019 | Visit | | [address] [facility] | | | | | | [address] [place] | | | | | | [address] | | | | | | | [...]
--- OUTSIDE RECORDS SUMMARY | ~2020-01-27 | XMS | Encounter Summary ---
Demographics + + + | Address | [address] | | | [place] [address] | + + + | Home Phone [...] [place] | | | | | [address] | | + + + + + | Deanna Lawson | ECON | Unknown | | + + + + + Care Team Providers + +------+ + | Care Cop Name | Role | Phone | + [...] Provider Unknown | | | | | [place], [place] | [phone] | | | | | [address] | | | | | | [phone] | | | +--------+ + + + [...] [place] | | | | | | [address] | | | | | | | | +--------+ + + + + | 02/05/ | Office | Cardiology | Dina Sanchez DO | | | 2019 | Visit | | [address] | | | | | | [place] | | | | | | [address] | | | | | | | | +--------+ + + + + | 02/09/ | Procedure | Cardiology | | | | 2019 | visit | | | | +--------+ + + + + | 02/17/ | Office | Orthopedic Surgery | Melquiades Baez | | | 2019 | Visit | | [address] | | | | | | [place] [facility], | | | | | | [place] [address] | | | | | | [phone] | | | | | | | | +--------+ + + + + | 03/09/ | Office | Nephrology | Isiah Jade MD | | | 2019 | Visit | | [address] [facility] | | | | | | [address] [place] | | | | | | [address] | | | | | | | [...]
--- OUTSIDE RECORDS SUMMARY | ~2020-01-27 | XMS | Encounter Summary ---
Demographics + + + | Address | [address] | | | [place] [address] | + + + | Home Phone [...] + | Author | [facility] | | | and [place] | + + + | Organization | [facility] | | | [...] [place] | | | | | [address] | | + + + + + | Deanna Lawson | ECON | Unknown | | + + + + + Care Team Providers + +------+ + | Care Net Architect Name | Role | Phone | [...] Provider Unknown | | | | | [place], [place] | [phone] | | | | | [address] | | | | | | [phone] | | | +--------+ + + + [...] 2019 | Visit | | [address] [facility] | | | | | | [address] [place] | | | | | | [address] | | | | | | | | +--------+ + + + + | 02/05/ | Office | Cardiology | Dina Sanchez DO | | | 2019 | Visit | | [address] | | | | | | [place] | | | | | | [address] | | | | | | | [...] CENTER, | | | | | | [place] [address] | | | | | | [phone] | | | | | | | | +--------+ + + + + | 03/09/ | Office | Nephrology | Isiah Jade MD | | | 2019 | Visit | | [address] [facility] | | | | | | [address] [place] | | | | | | [address] | | | | | | | [...]
--- OUTSIDE RECORDS SUMMARY | ~2020-01-27 | XMS | Encounter Summary ---
Demographics + + + | Address | [address] | | | [place] [address] | + + + | Home Phone [...] [place] | | | | | [address] | | + + + + + | Deanna Lawson | ECON | Unknown | | + + + + + Care Team Providers + +------+ + | Care Civil Engineering Technician Name | Role | Phone | + +------+ + | Barbara Gilman MD | PCP | | + +------+ + Encounter Details +--------+ + + + + | Date | Type | Department | Care Team | Description | +--------+ + + + + | 08/08/ | Orders Only | [facility] | Charlee Oswald | | | 2017 | | CARDIOLOGY [place] | [address] | | | | | [address] | [address] | | | | | [address] | [place] [address] | | | | | [place] | [phone] | | | | | [address] | | | | | | [phone] | | | +--------+ + + + [...] | Visit | | [address] [facility] | | | | | | [address] [place] | | | | | | [address] | | | | | | | | +--------+ + + + + | 02/05/ | Office | Cardiology | Dina Sanchez DO | | | 2019 | Visit | | [address] | | | | | | [place] | | | | | | [address] | | | | | | | | +--------+ + + + + | 02/09/ | Procedure | Cardiology | | | | 2019 | visit | | | | +--------+ + + + + | 02/17/ | Office | Orthopedic Surgery | Melquiades Baez | | 2019 | Visit | | [address] | | | | | | [address] [place], | | | | | | [place] [address] | | | | | | [phone] | | | | | | | | +--------+ + + + + | 03/09/ | Office | Nephrology | Isiah Jade MD | | | 2019 | Visit | | [address] [facility] | | | | | | [address] [place] | | | | | | [address] | | | | | | | [...]
--- OUTSIDE RECORDS SUMMARY | ~2020-01-27 | XMS | Encounter Summary ---
Demographics + + + | Address | [address] | | | [place] [address] | + + + | Home Phone [...] [place] | | | | | [address] | | + + + + + | Deanna Lawson | ECON | Unknown | | + + + + + Care Team Providers + +------+ + | Care Vp Of Product Name | Role | Phone | + +------+ + | Barbara Gilman MD | PCP | | + +------+ + Encounter Details +--------+--------+ + + + | Date | Type | Department | Care Team | Description | +--------+--------+ + + + | 12/20/ | Intake | [facility] | | N/A | | 2019 | | [place] [address] | | | | | | [facility] | | | | | | [place], [place] | | | | | | [address] | | | | | | [phone] | | | +--------+--------+ + + + [...] [place] | | | | | | [address] | | | | | | | | +--------+ + + + + | 02/05/ | Office | Cardiology | Dina Sanchez DO | | | 2019 | Visit | | [address] | | | | | | [place] | | | | | | [address] | | | | | | | [...] | | | | | | [place] [address] | | | | | | [phone] | | | | | | | | +--------+ + + + + | 03/09/ | Office | Nephrology | Isiah Jade MD | | | 2019 | Visit | | [address] [facility] | | | | | | [address] [place], [place] | | | | | | [address] | | | | | | | [...]
--- OUTSIDE RECORDS SUMMARY | ~2020-01-27 | XMS | Encounter Summary ---
Demographics + + + | Address | [address] | | | [place] [address] | + + + | Home Phone [...] [place] | | | | | [address] | | + + + + + | Deanna Lawson | ECON | Unknown | | + + + + + Care Team Providers + +------+ + | Care Extrusion Operator Name | Role | Phone | [...] + + | 12/01/ | Telephone | [facility] | Charlee Oswald | Testing | | 2020 | | CARDIOLOGY [place] | [address] | | | | | [address] | [address] | | | | | [address] | [place] [address] | | | | | [place], [place] | [phone] | | | | | [address] | | | | | | [phone] | | | +--------+ + + + [...] 2019 | Visit | | [address] [facility] | | | | | | [facility] | | | | | | [address] | | | | | | | | +--------+ + + + + | 02/05/ | Office | Cardiology | Dina Sanchez DO | | | 2019 | Visit | | [address] | | | | | | [place] | | | | | | [address] | | | | | | | [...] | | | | | [address] [place], | | | | | | [place] [address] | | | | | | [phone] | | | | | | | | +--------+ + + + + | 03/09/ | Office | Nephrology | Isiah Jade MD | | | 2019 | Visit | | [address] [facility] | | | | | | [address] [place] | | | | | | [address] | | | | | | | [...]
--- OUTSIDE RECORDS SUMMARY | ~2020-01-27 | XMS | Encounter Summary ---
Demographics + + + | Address | [address] | | | [place] [address] | + + + | Home Phone | | + + + | Preferred Language | Unknown | + + + | Marital Status | | + + + | Baptism Affiliation | [id number] | + + + | Race | Unknown | + + + | Ethnic Group | Unknown | + + + Author + + + | Author | [facility] | | | and [place] | + + + | Organization | [facility] | | | [...] [place] | | | | | [address] | | + + + + + | Deanna Lawson | ECON | Unknown | | + + + + + Care Team Providers + +------+ + | Care Community Outreach Coordinator Name | Role | Phone | [...] + + | 11/10/ | Procedure | [facility] | | Cardiac pacemaker in | | 2019 | visit | CARDIOLOGY [facility] | | situ (Primary Dx) | | | | [address] | | | | | | [place] | | | | | | [address] | | | | | | [phone] | | | +--------+ + + + [...] 2020 | Visit | | [address] [facility] | | | | | | [address] [place], [place] | | | | | | [address] | | | | | | | | +--------+ + + + + | 02/05/ | Office | Cardiology | Dina Sanchez DO | | | 2019 | Visit | | [address] | | | | | | [place] | | | | | | [address] | | | | | | | [...] | | | | | | [place] [address] | | | | | | [phone] | | | | | | | | +--------+ + + + + | 03/09/ | Office | Nephrology | Isiah Jade MD | | | 2019 | Visit | | [address] [facility] | | | | | | [address] [place] | | | | | | [address] | | | | | | | [...] Mercedez Jensen | LUCA | | [employer] 11[facility]12/2019 [facility] | | INTERROGATION REPORT Name: Andres Guzmán PCP: Barbara Elkins | | | MD Mukul : [id number]: [id number] Primary cardiology | | | provider: Charlee Oswald Primary electrophysiology provider: Enoch | | | Jay Device chief analytics officer: [employer] Device type: Single | | | chamber [...]
--- OUTSIDE RECORDS SUMMARY | ~2020-01-27 | XMS | Encounter Summary ---
Demographics + + + | Address | [address] | | | [place] [address] | + + + | Home Phone [...] [place] | | | | | [address] | | + + + + + | Deanna Lawson | ECON | Unknown | | + + + + + Care Team Providers + +------+ + | Care Rock Contractor Name | Role | Phone | + +------+ + | Barbara Gilman MD | PCP | | + +------+ + Encounter Details +--------+ + + + + | Date | Type | Department | Care Team | Description | +--------+ + + + + | 09/02/ | Orders Only | [facility] | Enoch Thompson, | | | 2019 | | CARDIOLOGY [place] | [address] | | | | | [address] | [address], [place] | | | | | [place], [place] | [address] | | | | | [address] | | | | | | [phone] | | | +--------+ + + + [...] | [address] [facility] [address] | | | | | | [address] [place] | | | | | | [address] | | | | | | | | +--------+ + + + + | 02/05/ | Office | Cardiology | Dina Sanchez DO | | | 2019 | Visit | | [address] | | | | | | [place] | | | | | | [address] | | | | | | | | +--------+ + + + + | 02/09/ | Procedure | Cardiology | | | | 2019 | visit | | | | +--------+ + + + + | 02/17/ | Office | Orthopedic Surgery | SashaMelquiades | | | 2019 | Visit | | DO [address] | | | | | | [place], | | | | | | [place] [address] | | | | | | [phone] | | | | | | | | +--------+ + + + + | 03/09/ | Office | Nephrology | Isiah Jade MD | | | 2019 | Visit | | [address] [facility] | | | | | | [address] [place] | | | | | | [address] | | | | | | | [...]
--- OUTSIDE RECORDS SUMMARY | ~2020-01-27 | XMS | Encounter Summary ---
Demographics + + + | Address | [address] | | | [place] [address] | + + + | Home Phone [...] | Author | [facility] | | | and [place] | + + + | Organization | [facility] [...] [place] | | | | | [address] | | + + + + + | Deanna Lawson | ECON | Unknown | | + + + + + Care Team Providers + +------+ + | Care Machine Clothing Man Name | Role | Phone | + [...] | | | | | atrial | [address] | | | | | | fibrillation | [address] | | | | | | (HCC) | [place] | | | | | | Presence [place] | [place] | | | | | | cardiac | [address] | | | | | | pacemaker | Phone: | | | | | | Chronic | [phone] | | | | | | diastolic | Fax: | | | | | | heart | [phone] | | | | | | failure [...] + + | 06/27/ | Office | [facility] | Charlee Oswald | 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) | | | | [address] | [place] | (Primary Dx); | | | | [address] | [place] [address] | Cardiac pacemaker in | | | | [place], [place] | [phone] | situ; Chronic | | | | [address]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 | | | | [phone] | | failure (HCC); | | | [...] reported by him as being negative His [id number]- VASC score is 6( HTN, age, stroke, [...] function until he followed up with nephrology FIREPOT OPERATOR AND TENDERSantana Rajput on 04/05/2019, and told him to [...] to follow-up with his PCP at the [place] next week about this. He reports today that he continues to feel considerably improved since his generator [employer] as he had felt quite symptomatic when [...] recreational or illicit drug use. Exercises with [employer] and [employer] work, tolerates without chest pain or dyspnea. 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 (Pa tieyrn taking differently: Take 25 mg by mouth [...] rhonchi noted, respirations unlab ored HEART: [facility] pacemaker site well Healed, stable to [...] : 02/04/2019: ( Dr. Thompson) : new [employer] Accolade MRI com patible model L310, serial #[id number] pacemaker. The current lead is a [employer] model 4136, serial #[id number].Mode for pacing, VVIR with dual-sensor technology programmed on. T he lower rate will be 60 and upper rate 120beats per minute. The output will be 2 volts at 0.4 milliseconds with sensitivity of 2.5 millivolts. Pacing and sensing will be bipolar Previous Implant Pacemaker/ICD: 07/30/2010, SYDNEE Kinsey S601, SN: [id number]. [facility]. Last pacer interrogation: 05/07/2019: ( Dr. Thompson) : Normal device function was seen today f or this [employer] single-chamber device. The pacing threshold was [...] change, except less pul monary hypertension Echo:07/26/2017: [facility]: EF [...] PHS 75,TOTAL BILI 0.6,ALB 3.9 Labs: 02/18/2018: ([facility] ER). CBC: WBC 6.2, RBC 3.46, [...] 73. Thyroid: TSH 3.55 Labs: 08/23/2018: ( [facility] ER): CBC: WBC 6.6, RBC [...] He had a recent clinic visit with planishing press operator Dr. Thompson, and pacemaker has stable [...] His echo will be performed at [facility] in September, and I will follow-up with [...] | Visit | | [address] [facility] | | | | | | [address] [place], [place] | | | | | | [address] | | | | | | | | +--------+ + + + + | 02/05/ | Office | Cardiology | Dina Sanchez DO | | | 2019 | Visit | | [address] | | | | | | [place] | | | | | | [address] | | | | | | | [...] | | | | | | [place] [address] | | | | | | [phone] | | | | | | | | +--------+ + + + + | 03/09/ | Office | Nephrology | Isiah Jade MD | | | 2019 | Visit | | [address] [facility] [place] | | | | | | [address] [place], [place] | | | | | | [address] | | | | | | | [...]
--- OUTSIDE RECORDS SUMMARY | ~2020-01-27 | XMS | Encounter Summary ---
Demographics + + + | Address | [address] | | | [place] [address] | + + + | Home Phone [...] [place] | | | | | [address] | | + + + + + | Deanna Lawson | ECON | Unknown | | + + + + + Care Team Providers + +------+ + | Care Pediatric Dietician Name | Role | Phone | + [...] Provider Unknown | | | | | [place], [place] | | | | | | [address] | (Fax) | | | | | [phone] | | | +--------+ + + + [...] [place] | | | | | | [address] | | | | | | | | +--------+ + + + + | 02/05/ | Office | Cardiology | Dina Sanchez DO | | | 2019 | Visit | | [address] | | | | | | [place] | | | | | | [address] | | | | | | | [...] | | | | | [facility], | | | | | | [place] [address] | | | | | | [phone] | | | | | | | | +--------+ + + + + | 03/09/ | Office | Nephrology | Isiah Jade MD | | | 2019 | Visit | | [address] [facility] | | | | | | 160 [place] | | | | | | [address] | | | | | | | [...]
--- OUTSIDE RECORDS SUMMARY | ~2020-01-27 | XMS | Encounter Summary ---
Demographics + + + | Address | [address] | | | [place] [address] | + + + | Home Phone [...] [place] | | | | | [address] | | + + + + + | Deanna Lawson | ECON | Unknown | | + + + + + Care Team Providers + +------+ + | Care Rack Cleaner Name | Role | Phone | [...] | | | | | atrial | HELP DESK SUPPORT SPECIALIST [address] | | | | | | fibrillation | [address] | | | | | | (HCC) | [place] | | | | | | [place]ence [place] | [place] | | | | | | cardiac | [address] | | | | | | pacemaker | Phone: | | | | | | Chronic | [phone] | | | | | | diastolic | Fax: | | | | | | heart | [phone] | | | | | | failure [...] + + | 06/27/ | Office | [facility] | Charlee Oswald | 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) | | | | [address] | [place] | (Primary Dx); | | | | [address] | [place] [address] | Cardiac pacemaker in | | | | [place], [place] | [phone] | situ; Chronic | | | | [address]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 | | | | [phone] | | failure (HCC); | | | [...] reported by him as being negative His PSE0KC3- VASC score is 6( HTN, age, stroke, [...] function until he followed up with nephrology PHOTOENGRAVING PRINTERSantana Rajput on 04/05/2019, and told him to [...] to follow-up with his PCP at the [place] next week about this. He reports today that he continues to feel considerably improved since his generator [employer], as he had felt quite symptomatic when [...] recreational or illicit drug use. Exercises with [employer] and [employer] work, tolerates without chest pain or dyspnea. 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 Thompson) : new [employer] Accolade MRI com patible model L310, serial #[id number] pacemaker. The current lead is a [employer] model 4136, serial #[id number].Mode for pacing, VVIR with dual-sensor technology programmed on. T he lower rate will be 60 and upper rate 120beats per minute. The output will be 2 volts at 0.4 milliseconds with sensitivity of 2.5 millivolts. Pacing and sensing will be bipolar Previous Implant Pacemaker/ICD: 07/30/2010, SYDNEE Kinsey S601, SN: [id number]. [facility] Last pacer interrogation: 05/07/2019: ( Dr. Thompson) : Normal device function was seen today f or this [employer] single-chamber device. The pacing threshold was [...] change, except less pul monary hypertension Echo:07/26/2017: [facility]: EF >70 percent. LV normal in size [...] PHS 75,TOTAL BILI 0.6,ALB 3.9 Labs: 02/18/2018: ([facility] ER). CBC: WBC 6.2, [...] 73. Thyroid: TSH 3.55 Labs: 08/23/2018: ( [facility] ER): CBC: WBC 6.6, RBC 2.92, [...] He had a recent clinic visit with tag and label cutter Dr. Thompson, and pacemaker has stable d [...] . His echo will be performed at [facility] in September, and I will follow-up with [...] contain inadvertent rec ognition errors. Maximilian MCCONNELL [facility] Cardiology 06/28/2019 Apurva orozco in this encounter Plan of Treatment +--------+ + + + + | Date | Type | Specialty | Care Team | Description | +--------+ + + + + | 01/29/ | Office | Nephrology | sIiah Jade MD | | | 2019 | Visit | | [address] [facility] | | | | | | [address] [place], [place] | | | | | | [address] | | | | | | | | +--------+ + + + + | 02/05/ | Office | Cardiology | Dina Sanchez DO | | | 2019 | Visit | | [address] | | | | | | [place] | | | | | | [address] | | | | | | | [...] | | | | | | [place] [address] | | | | | | [phone] | | | | | | | | +--------+ + + + + | 03/09/ | Office | Nephrology | Isiah Jade MD | | | 2019 | Visit | | [address] [facility] [address] | | | | | | [address] [place], [place] | | | | | | [address] | | | | | | | [...]
[~2020-01-27 14:44] MED LIST changes: +CARAFATE1 GM PO; +DOK PLUS TABLE1 EACH PO; +GLIPIZIDE ER2.5 MG PO; +HUMALOG100 UNIT/2 SUB-Q; +MECLIZINE HCL25 MG PO; +MELATONIN3 MG PO; +MILK OF MA400 MG/5 M PO; +POLYETHYLENE GL17 GM PO; +POTASSIUM CHLO10 ME1 PO; +PROAIR RESPICL90 MCG INH; +PROTONIX40 MG PO; +SYMBICORT 16010.2 GM INH; +TORSEMIDE20 MG PO
== END 2020-01-27 19:51 | disposition home or self-care (01) ==
LOC: ED 14:44
DX: R18.8 Other ascites (principal); K59.00 Constipation, unspecified; R33.9 Retention of urine, unspecified; E78.00 Pure hypercholesterolemia, unspecified; I11.0 Hypertensive heart disease with heart failure; I50.9 Heart failure, unspecified; E11.9 Type 2 diabetes mellitus without complications; Z88.5 Allergy status to narcotic agent; Z79.899 Other long term (current) drug therapy
CPT/HCPCS: 51702; 51798; 74176; 80053; 81001; 83690; 83735; 85025; 99284-25; J2405; J7040

== ENCOUNTER 2020-03-05 23:06 | Inpatient (IN) | payer MEDICARE, OTHER ==
[~2020-03-05] VITALS: Ht 165.1 cm; Wt 79.4 kg
--- OUTSIDE RECORDS SUMMARY | ~2020-03-05 | XMS | Encounter Summary ---
Demographics + + + | Address | [address] | | | [place] [address] | + + + | Home Phone | | + + + | Preferred Language | Unknown | + + + | Marital Status | | + + + | Sabianism Affiliation | 1001 | + + + | Race | Unknown | + + + | Ethnic Group | Unknown | + + + Author + + + | Author | [facility] | | | and [place] | + + + | Organization | [facility] | | | and [place] | + + + | Address | Unknown | + + + | Phone | Unavailable | + + + Support + + + + + | Name | Relationship | Address | Phone | + + + + + | Marissaian Guzmán | ECON | [address] | | | | | [place] | | | | | [address] | | + + + + + | Deanna Lawson | ECON | Unknown | | + + + + + Care Team Providers + +------+ + | Care Tobacco Wetter Name | Role | Phone | + +------+ + PCP | Unavailable | + +------+ + Encounter Details +--------+ + + + + | Date | Type | Department | Care Team | Description | +--------+ + + + + | 02/04/ | Hospital | [facility] | Conversion | Presence of cardiac | | 2019 | Encounter | CENTER CV [facility] OP | Transaction, | pacemaker; Permanent | | | | [address] | Provider Unknown | atrial fibrillation | | | | [place], [place] | [phone] | (HCC); Chronic | | | | [address]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 | | | | [phone] | Enoch Marks MD | failure ([facility]); | | | | | [address] | Pacemaker at end of | | | | | [place], [place] | battery life | | | | | [address] | | | | | | | | +--------+ + + + + Social [...] | Male | | + + + documented as of this encounter Medications at Time of Discharge + + + +---------+ + + | Medication | Sig | Dispensed | Refills | Start | End Date | | | | | | Date | | + + + +---------+ + + | allopurinol | Take 1 tablet by | 90 | 3 | 01/12/20 | | | (ZYLOPRIM) 100 mg | mouth daily. | tablet | | 19 | | | tablet | | | | | | + + + +---------+ + + | ascorbic acid | Take 500 mg by mouth | | 0 | 08/26/19 | | | (VITAMIN C) 500 MG | daily. | | | 16 | | | tablet | | | | | | + + + +---------+ + + | ferrous sulfate | Take 65 mg of iron | | 0 | 01/26/20 | | | 325 mg tablet | by mouth every other | | | 18 | | | | day. | | | | | + + + +---------+ + + | meclizine | Take 1 tablet by | 90 | 0 | 09/02/19 | | | (ANTIVERT) 25 mg | mouth 3 (three) | tablet | | 19 | | | tablet | times daily as | | | | | | | needed. | | | | | + + [...] + + + +---------+ + + | apixaban (ELIQUIS) | Take 1 tablet by | 60 | 11 | 01/26/20 | | | 2.5 mg tablet | mouth 2 (two) times | tablet | | 19 | 0 | | | daily. | | | | | + + + +---------+ + + | carvedilol (COREG) | Take 1 tablet by | 60 | 11 | 06/25/20 | | | 25 mg tablet | mouth 2 (two) times | tablet | | 18 | 0 | | | daily with meals. | | | | | + + [...] + + + +---------+ + + | raNITIdine | Take 1 tablet by | 60 | 11 | 10/26/19 | | | (ZANTAC) 150 mg | mouth 2 (two) times | tablet | | 19 | 9 | | tablet | daily. | | | | | + + + +---------+ + + | spironolactone | Take 1 tablet by | 60 | 11 | 08/08/20 | | | (ALDACTONE) 25 mg | mouth 2 (two) times | tablet | | 17 | 0 | | tablet | daily. | | | | | + + + +---------+ + + documented as of this encounter Progress Notes Conversion Transaction, Provider Unknown - 02/04/2019 2:30 PM PDTFormatting of this note m ight be different from the original. Nurse Progress Note by Sendy Smith RN at 02/04/19 1430 Author: Sendy Smith RN Service: General Surgery Author Type: Registered Nurse Filed: 02/04/19 5279 Date of Service: 02/04/19 1430 Status: Signed Controls Designer: Sendy Smith RN (Registered Nurse) Patient discharged home with family. Patient has all personal belongings, discharge instru ctions and prescriptions. We discussed, skin care, activity, diet, pain control, follow up care and appointments along with new prescribed medications. Patient expressed understandin g and had no questions. docume nted in this encounter H&P Notes Enoch Marks MD - 02/03/2019 5:36 PM PDTFormatting of this note might be different fr om the original. H&P by Enoch Marks MD at 02/03/19 8951 Author: Enoch Marks MD Service: Specialist Author Type: Physician Filed: 02/04/19 1252 Date of Service: 02/03/191735 Status: Addendum Controls Designer: Enoch Marks MD (Physician) Related Notes: Original Note by Enoch Marks MD (Physician) filed at 02/04/19 1228 [facility]: Electrophysiology Update to Pre-Operative History & Physical There have been no significant clinical changes since the completion of the H&P below, exce pt he has had progressive fatigue and weakness over the last few days and weeks. Denies any tachycardias. His dizziness is much better on meclizine. Moderate Sedation Presedation Assessment completed. He is alert and appropriate. No edema. The JVP was not elevated. There was a soft systoli c murmur at the left sternal border. There is no peripheral edema. The chest was clear to percussion and auscultation. The abdominal examination is unremarkable with no organomegaly or tenderness. The right prepectoral pacer site looks good. Very poor dentition. Most of the teeth are missing. R/B/A reviewed in detail. Enoch Marks MD 02/04/2019 12:27 PM ELECTROPHYSIOLOGY OUTPATIENT FOLLOW UP PATIENT NAME: Andres Guzmán : 1930: AGE: 88 y.o. Phone- [phone] (home) PRIMARY CARE: Barbara Gilman Requesting Physician: Barbara Gilman MD [address] [place], [place] [id number] SUMMARY OF EP RECOMMENDATIONS Patient Active Problem List Diagnosis Date Noted Vertigo 09/02/2018 He was hospitalized last week with significant vertigo and nausea. A CT angiogram di d not show any significant stenosis however the left internal carotid artery had a 40% steno sis. There were mild calcifications of less than 15% in the remaining internal and external carotid arteries. A head CT was consistent with global atrophy. There were significant areas of patchy low density in the periventricular white matter, consistent with small vessel isc hemic changes (chronic). He was treated effectively by a physical therapist. Symptoms are wo rse if he turns to the right. I recommended meclizine 25 mg 3 times a day, if needed for pedro tigo. Snoring 09/03/2017 A sleep study did not show sleep apnea apparently. Chronic diastolic heart failure (HCC) 07/25/2017 He has chronic diastolic heart failure related to permanent atrial fibrillation and anemia. His LV systolic function is normal. Anemia 07/25/2017 He needed to be transfused 3 units of packed cells and was given vitamin K intraveno usly in June 2017 because of a GI bleed. Upper and lower endoscopy did not show a source . He is now taking iron. I recommended Switching from warfarin to apixaban because of the l ower risk of bleeding with that agent. Labs will be checked today with an INR, CBC, and basi c metabolic profile. HLD (hyperlipidemia) 06/04/2015 Type 2 diabetes mellitus without complication (HCC) 06/04/2015 Permanent atrial fibrillation (HCC) 04/24/2014 Permanent A. Fib. The left atrium was markedly dilated and he had severe pulmonary h ypertension(75mm)on an echo on July 26, 2017. The LV systolic function was normal. There was mild concentric LVH. He has a single-chamber [employer] ventricular pacemaker mayelin t is nearing elective replacement indicator status. He has been pacing the right ventricle 9 9% of the time. Anticoagulated with apixaban. He has only been taking 2.5 mg twice per day, because of renal dysfunction and age. day. The chads 2 vascular score is 4. 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 He has a [employer] Altrua single-chamber RV pacemaker that was placed on Jul because of heart block, in the context of permanent atrial fibrillation. 02/27/18: Appropriate device function was seen today. The pacing threshold in the RV was 0.8 V at 0.5 ms. There was no reliable underlying rhythm. He has been pacing 99% of the time in the RV, with a lower rate limit of 60 bpm. The estimated longevity from the device is less than 0.5 years. No significant arrhythmias have been seen. Monthly battery checks will be initiated. August 30, 2018: Appropriate device function was seen today. The pacing threshold was 0.5 V at 0.6 ms and R waves were 10.9 mV. Patient has occurred 99% of the time in the RV. The pacing mode is VVIR (permanent atrial fibrillation). The estimated longevity is less than 0.5 years. 02/01/2019: The device is now at MIRIAN. A change that has been scheduled for 02/04/2019. The risks, bene fits, and rationale have been reviewed. Essential hypertension with goal blood pressure less than 130/80 04/24/2014 Controlled on current therapy. He is now on carvedilol 25 mg twice a day and lisinop ril 20 mg twice a day along with Lasix 40 mg per day and spironolactone 25 mg twice a day. H ytrin 10 mg daily at bedtime. Recommendations: Meclizine 25 mg 3 times a day if needed for vertigo He was given a bottle with Hibiclens and told to take that the morning of the procedure and the evening before his generator change out which will be scheduled within the next few wee ks or months (once the device is at MIRIAN status). He will hold the apixaban the morning of th e procedure but take it the night before the change out. HISTORY OF PRESENT ILLNESS: Andres returns today, for a follow-up visit. His pacemaker is nearing elective replacement i ndicator status. He has done well from a cardiac perspective, with no symptoms of angina, CH F, tachycardias, dizziness, or syncope. He is now anticoagulated with apixaban instead of wa rfarin. A sleep study was normal. Last week, he was hospitalized because of significant vertigo and nausea and treated by a p hysical therapist fairly effectively. He still has occasional vertigo if he turns quickly to the right. Allergies Allergen Reactions Codeine Nausea and Vomiting and Vertigo Morphine And Related Nausea Only Slow to recover Current Medications Current Outpatient Prescriptions: apixaban (ELIQUIS) 5 MG tablet, Take 1 tablet by mouth 2 (two) times daily. (Patient t aking differently: Take 2.5 mg by mouth 2 (two) times daily.), Disp: 60 tablet, Rfl: 11 ascorbic acid (VITAMIN C) 500 MG tablet, Take 250 mg by mouth 2 (two) times daily., Di sp: , Rfl: Megisfp-Hbzybyeyv-Dazujiz D 600-40-500 MG-MG-UNIT TB24, Take 1,200 mg by mouth daily., Disp: , Rfl: carvedilol (COREG) 25 MG tablet, Take 1 tablet by mouth 2 (two) times daily with meals ., Disp: 60 tablet, Rfl: 11 ferrous sulfate, 65 FE, 325 (65 FE) MG tablet, Take 65 mg of iron by mouth 2 (two) kya es daily with meals., Disp: , Rfl: furosemide (LASIX) 40 MG tablet, Take 1 tablet by mouth daily., Disp: , Rfl: lisinopril (ZESTRIL) 20 MG tablet, Take 20 mg by mouth 2 (two) times daily., Disp: , R fl: metFORMIN (GLUCOPHAGE) 500 MG tablet, Take 500 mg by mouth 3 (three) times daily., Dis p: , Rfl: multivitamin-minerals (OCUVITE-LUTEIN) tablet, Take 1 tablet by mouth daily., Disp: , Rfl: omeprazole (PRILOSEC) 20 MG capsule, Take 20 mg by mouth every morning before breakfas t., Disp: , Rfl: pravastatin (PRAVACHOL) 80 MG tablet, Take 40 mg by mouth nightly., Disp: , Rfl: terazosin (HYTRIN) 10 MG capsule, Take 10 mg by mouth daily with dinner., Disp: , Rfl: meclizine (ANTIVERT) 25 MG tablet, Take 1 tablet by mouth 3 (three) times daily as nee ded., Disp: 90 tablet, Rfl: 0 meclizine (ANTIVERT) 25 MG tablet, Take 1 tablet by mouth 3 (three) times daily as nee ded for up to 10 days., Disp: 30 tablet, Rfl: 0 spironolactone (ALDACTONE) 25 MG tablet, Take 1 tablet by mouth 2 (two) times daily., Disp: 60 tablet, Rfl: 11 The past history, social history, and family history were reviewed and there are no change s of any significance. DATA: Laboratory values which I reviewed 09/02/2018 are as follows: Lab Results Component Value Date WBC 4.59 07/29/2017 RBC 2.85 (L) 07/29/2017 HGB 8.3 (L) 07/29/2017 HCT 25.0 (L) 07/29/2017 PLT 159 07/29/2017 Lab Results Component Value Date NA 141 07/29/2017 K 3.6 07/29/2017 CL 106 07/29/2017 CO2 26 07/29/2017 ANIONGAP 13 07/29/2017 GLUF 113 (H) 07/29/2017 BUN 23 07/29/2017 CREATININE 1.2 07/29/2017 BCR 19 07/29/2017 CA 8.8 07/29/2017 EGFR >60 07/29/2017 Lab Results Component Value Date GLUF 113 (H) 07/29/2017 HGBA1C 5.5 07/26/2017 Lab Results Component Value Date BNP 506 (H) 07/26/2017 CKTOTAL 68 07/25/2017 TSH 5.82 (H) 07/26/2017 labs from August 22, 2018 included potassium of 4.0, creatinine 1.4, glucose 153, bun 32, calcium 8.9, and the liver function tests were normal. ROS Constitutional: Positive for chillsand malaise/fatigue. Negative for feverand weight lo ss. HENT: Negative for congestionand sore throat. Respiratory: Positive for coughand shortness of breath. Cardiovascular: Negative for chest pain, palpitationsand leg swelling. Gastrointestinal: Negative for abdominal painand blood in stool. Genitourinary: Negative for dysuria. Musculoskeletal: Negative for myalgias. Neurological: Positive for dizzinessand sensory change. Negative for loss of consciousnes s. PHYSICAL EXAM: BP 132/60 | Pulse 60 | Ht 1.651 m (5' 5") | Wt 73.1 kg (161 lb 3.2 oz) | SpO2 98% | BM I 26.83 kg/m Physical Exam Constitutional: He appears well-developed and well-nourished. No distress. He is an elderly gentleman who is mildly overweight.In no distress. Eyes: No scleral icterus. Neck: Normal range of motion. Neck supple. No JVD present. No tracheal deviation present. N o thyromegaly present. Cardiovascular: Normal rate, regular rhythm and intact distal pulses. Exam reveals no gall op and no friction rub. Murmur ( Soft systolic murmur left sternal border.) heard. Pulmonary/Chest: Effort normal and breath sounds normal. No stridor. No respiratory distres s. He has no wheezes. He has no rales. He exhibits no tenderness. Abdominal: Soft. Bowel sounds are normal. He exhibits no distension and no mass. There is n o tenderness. There is no rebound and no guarding. Musculoskeletal: He exhibits no edema or tenderness. Lymphadenopathy: He has no cervical adenopathy. Neurological: No cranial nerve deficit. Coordination normal. Skin: Skin is warm and dry. No rash noted. He is not diaphoretic. No erythema. No pallor. Psychiatric: He has a normal mood and affect. His behavior is normal. Judgment and thought content normal. Enoch Marks MD *This report has been prepared using a voice recognition system. The report was reviewed for accuracy, however, sound-alike word errors, addition and/or deletions may occur. If ther e is any question about this report please contact me. documented in this encounter Plan of Treatment +--------+---------+ + + + | Date | Type | Specialty | Care Team | Description | +--------+---------+ + + + | 03/17/ | Office | Orthopedic Surgery | Melquiades Baez | | | 2019 | Visit | | DO [address] | | | | | | [place], | | | | | | [place] [address] | | | | | | [phone] | | | | | | | | +--------+---------+ + + + | 04/21/ | Office | Nephrology | Isiah Jade MD | | 2019 | Visit | | [address] [facility] | | | | | | [address] [place] | | | | | | [address] | | | | | | | | +--------+---------+ + + + | 05/07/ | Office | Cardiology | Darek Charlee | | | 2019 | Visit | | [address] | | | | | | [address] | | | | | | [place] [address] | | | | | | [phone] | | | | | | | | +--------+---------+ + + + documented as of this encounter Procedures + +--------+ + + + | Procedure Name | Priori | Date/Time | Associated Diagnosis | Comments | | | ty | | | | + +--------+ + + + | CV EP PROCEDURE | Routin | 02/04/2019 | | Results for this | | | e | 1:22 PM | | procedure are in the | | | | PDT | | results section. | + +--------+ + + + | POC GLUCOSE | Routin | 02/04/2019 | | Results for this | | | e | 12:14 PM | | procedure are in the | | | | PDT | | results section. | + +--------+ + + + | EXTERNAL LAB: CBC | Routin | 02/04/2019 | | Results for this | | | e | 12:08 PM | | procedure are in the | | | | PDT | | results section. | + +--------+ + + + | BASIC METABOLIC | Routin | 02/04/2019 | | Results for this | | PANEL | e | 12:08 PM | | procedure are in the | | | | PDT | | results section. | + +--------+ + + + documented in this encounter Results CV EP PROCEDURE (02/04/2019 1:22 PM PDT) + + | Specimen | + + | | + + + + + | Impressions | Performed At | + + + | FINAL IMPRESSION: Good chronic pacing and sensing thresholds. | | | Appropriate device function seen. RECOMMENDATIONS: Add | | | apixaban later. Wait for another 24 hours to avoid increased risk | | | of pacer pocket hematoma. He will be seen in one week in [place] | | | by ENEDINA Bo. Read by ENOCH MARKS MD 02/04/2019 | | | 01:33 P | | | PM | | + + + + + + | Narrative | Performed At | + + + | | | | | | | DATE OF SERVICE: 02/04/2019 PROCEDURE: Single chamber | | | generator change-out for the pacemaker. HISTORY: This | | | 88-year-old gentleman was referred for a pacemaker generator | | | change-out since his current device is at elective replacement | | | indicator status. It is a [employer] pacemaker that was | | | placed on 07/30/2010, because of heart block in the context of | | | permanent atrial fibrillation. He has felt poorly over the last few | | | weeks since the device went into an MIRIAN mode. The current lead is | | | a [employer] model 4136, serial #[id number]. The current | | | pacemaker is a [employer] model S601, serial #[id number]. He is | | | anticoagulated and the last dose of apixaban was last evening. He | | | has chronic diastolic heart failure, but his systolic function has | | | been normal. PROCEDURE NOTE: The patient was brought to the | | | electrophysiology laboratory in the postabsorptive nonsedated state. | | | He has no reliable underlying rhythm and therefore the device was | | | programmed into a VOO pacing mode. The pocket was numbed up using | | | lidocaine and an incision was made above the pacemaker superiorly. | | | The pocket was entered, taking care to avoid damaging the lead, and | | | the pacemaker was then removed. The lead was tested and found to | | | be working appropriately. The pacing threshold was 0.8 volts at 0.4 | | | milliseconds with an impedance of 494 ohms and a current of 1.7 | | | milliamps. The lead was attached to a new [employer] | | | Accolade MRI compatible model L310, serial #[id number] pacemaker. That | | | device was placed into the pocket and anchored with a #1 Ethibond | | | suture. The pocket was closed with 4 layers, using 2-0 Vicryl for | | | the deep two layers, 3-0 Vicryl for the next layer and 4-0 Monocryl | | | for the superficial layer. A Dermabond like substance was placed over | | | the incision. The estimated blood loss was less than 10 mL. | | | There were no apparent complications. The patient was transferred | | | to his room in stable condition after the device was programmed to | | | the final desired settings FINAL SETTINGS OF THE DEVICE: Mode | | | for pacing, VVIR with dual-sensor technology programmed on. The | | | lower rate will be 60 and upper rate 120 beats per minute. The | | | output will be 2 volts at 0.4 milliseconds with a sensitivity of 2.5 | | | millivolts. Pacing and sensing will be bipolar. | | + + + + + | Procedure Note | + + | Leonides Bullock Conversion - 04/10/2019 4:06 PM PDT | | | | DATE OF SERVICE: 02/04/2019 | | | | PROCEDURE: Single chamber generator change-out for the pacemaker. | | | | HISTORY: This 88-year-old gentleman was referred for a pacemaker generator | | change-out since his current device is at elective replacement indicator | | status. It is a [employer] pacemaker that was placed on 07/30/2010, | | because of heart block in the context of permanent atrial fibrillation. He | | has felt poorly over the last few weeks since the device went into an MIRIAN | | mode. The current lead is a [employer] model 4136, serial | | #[id number]. The current pacemaker is a [employer] model S601, serial | | #[id number]. He is anticoagulated and the last dose of apixaban was last | | evening. He has chronic diastolic heart failure, but his systolic function | | has been normal. | | | | PROCEDURE NOTE: The patient was brought to the electrophysiology | | laboratory in the postabsorptive nonsedated state. He has no reliable | | underlying rhythm and therefore the device was programmed into a VOO pacing | | mode. The pocket was numbed up using lidocaine and an incision was made | | above the pacemaker superiorly. The pocket was entered, taking | | care to avoid damaging the lead, and the pacemaker was then removed. The lead | | was tested and found to be working appropriately. The pacing threshold was | | 0.8 volts at 0.4 milliseconds with an impedance of 494 ohms and a current | | of 1.7 milliamps. The lead was attached to a new [employer] | | Accolade MRI compatible model L310, serial #[id number] pacemaker. That device | | was placed into the pocket and anchored with a #1 Ethibond suture. The | | pocket was closed with 4 layers, using 2-0 Vicryl for the deep two layers, | | 3-0 Vicryl for the next layer and 4-0 Monocryl for the superficial layer. | | A Dermabond like substance was placed over the incision. The estimated | | blood loss was less than 10 mL. There were no apparent complications. The | | patient was transferred to his room in stable condition after the device | | was programmed to the final desired settings | | | | FINAL SETTINGS OF THE DEVICE: Mode for pacing, VVIR with dual-sensor | | technology programmed on. The lower rate will be 60 and upper rate 120 | | beats per minute. The output will be 2 volts at 0.4 milliseconds with a | | sensitivity of 2.5 millivolts. Pacing and sensing will be bipolar. | | | | IMPRESSION: | | FINAL IMPRESSION: Good chronic pacing and sensing thresholds. Appropriate | | device function seen. | | | | RECOMMENDATIONS: Add apixaban later. Wait for another 24 hours | | to avoid increased risk of pacer pocket hematoma. He will be seen in one | | week in [place] by ENEDINA Bo. | | | | Read by ENOCH MARKS MD 02/04/2019 01:33 P | | | | | + + POC Glucose (02/04/2019 12:14 PM PDT) + + + + + + | Component | Value | Ref Range | Performed | Pathologist | | | | | At | Signature | + + + + + + | Glucose, | 133 (H)Comment: Testing | 65 - 99 mg/dL | EXTERNAL | | | Fingerstick | performed at [facility];[address] | | LAB | | | | [address];[place], [place] | | | | | | [address] | | | | + + + + + + + + | Specimen | + + | | + + + +---------+ + + | Performing | Address | City/State/Zipcode | Phone Number | | Organization | | | | + +---------+ + + | EXTERNAL LAB | | | | + +---------+ + + External Lab: CBC (02/04/2019 12:08 PM PDT) + + + + + + | Component | Value | Ref Range | Performed | Pathologist | | | | | At | Signature | + + + + + + | WBC | 6.04 | 3.80 - 11.00 | EXTERNAL | | | | | K/uL | LAB | | + + + + + + | Non- | 3.17 (L) | 4.20 - 5.70 | EXTERNAL | | | Red Blood | | M/uL | LAB | | | Cells | | | | | | Counted | | | | | + + + + + + | Hemoglobin | 10.0 (L) | 13.2 - 17.0 | EXTERNAL | | | | | g/dL | LAB | | + + + + + + | Hematocrit, | 30.0 (L) | 39.0 - 50.0 % | EXTERNAL | | | POC | | | LAB | | + + + + + + | MCV | 94.6 | 80.0 - 100.0 fl | EXTERNAL | | | | | | LAB | | + + + + + + | MCH | 31.7 | 27.0 - 34.0 pg | EXTERNAL | | | | | | LAB | | + + + + + + | MCHC | 33.5 | 32.0 - 35.5 | EXTERNAL | | | | | g/dL | LAB | | + + + + + + | RDW-CV | 48.6 | 37 - 53 fl | EXTERNAL | | | | | | LAB | | + + + + + + | Platelet | 130 (L) | 150 - 400 K/uL | EXTERNAL | | | Count | | | LAB | | | Plasma | | | | | + + + + + + | MPV | 8.2 | fl | EXTERNAL | | | | | | LAB | | + + + + + + | Differentia | AUTOMATED | | EXTERNAL | | | l Type | | | LAB | | + + + + + + | % Segmented | 67.09 | % | EXTERNAL | | | | | | LAB | | | Neutrophils | | | | | + + + + + + | % | 17.04 | % | EXTERNAL | | | Lymphocytes | | | LAB | | + + + + + + | % Monocytes | 10.73 | % | EXTERNAL | | | | | | LAB | | + + + + + + | % | 4.03 | % | EXTERNAL | | | Eosinophils | | | LAB | | + + + + + + | % Basophils | 1.11 | % | EXTERNAL | | | | | | LAB | | + + + + + + | Absolute | 4.05 | 1.90 - 7.40 | EXTERNAL | | | Segmented | | K/uL | LAB | | | Neutrophils | | | | | + + + + + + | Absolute | 1.03 | 1.00 - 3.90 | EXTERNAL | | | Lymphocytes | | K/uL | LAB | | + + + + + + | Absolute | 0.65 | 0.00 - 0.80 | EXTERNAL | | | Monocytes | | K/uL | LAB | | + + + + + + | Absolute | 0.24 | 0.00 - 0.50 | EXTERNAL | | | Eosinophils | | K/uL | LAB | | + + + + + + | Absolute | 0.07Comment: Testing | 0.00 - 0.10 | EXTERNAL | | | Basophils | performed at [facility];[address] | [address] | LAB | | | | [address];[place], [place] | | | | | | [address] | | | | + + + [...] + +---------+ + + Basic Metabolic Panel (02/04/2019 12:08 PM PDT) + + + + + + | Component | Value | Ref Range | Performed | Pathologist | | | | | At | Signature | + + + + + + | Na | 142 | 135 - 145 | EXTERNAL | | | | | mmol/L | LAB | | + + + + + + | K | 4.3 | 3.5 - 4.9 | EXTERNAL | | | | | mmol/L | LAB | | + + + + + + | Cl | 107 | 99 - 109 mmol/L | EXTERNAL | | | | | | LAB | | + + + + + + | CO2 | 25 | 23 - 32 mmol/L | EXTERNAL | | | | | | LAB | | + + + + + + | Anion Gap | 14 | 5 - 20 mmol/L | EXTERNAL | | | | | | LAB | | + + + + + + | Glucose, | 126 (H) | 65 - 99 mg/dL | EXTERNAL | | | Fasting | | | LAB | | + + + + + + | BUN | 35 (H) | 8 - 25 mg/dL | EXTERNAL | | | | | | LAB | | + + + + + + | Creatinine | 1.75 (H) | 0.70 - 1.30 | EXTERNAL | | | | | mg/dL | LAB | | + + + + + + | BUN/Creatin | 20 | | EXTERNAL | | | ine Ratio | | | LAB | | + + + + + + | Calcium | 8.6 | 8.5 - 10.5 | EXTERNAL | | | | | mg/dL | LAB | | + + + + + + | Estimated | 37 (L)Comment: GFR <60: | mL/min/1.73m2 | EXTERNAL [...] BY | | | | | | 1.210.This eGFR is | | | | | | calculated using the | | | | | | MDRD IDHI traceable | | | | | | equation.Testing | | | | | | performed at [facility];[address] | | | | | | [address];[place], [place] | | | | | | [address] | | | | + + + [...] + | Diagnosis | + + | Presence of cardiac pacemaker Cardiac pacemaker in situ | + + | Permanent atrial fibrillation (HCC) Atrial fibrillation | + + | Chronic diastolic heart failure (HCC) Chronic diastolic heart failure | + + | Pacemaker at end of battery life Fitting and adjustment of cardiac pacemaker | + + documented in this encounter
--- OUTSIDE RECORDS SUMMARY | ~2020-03-05 | XMS | Encounter Summary ---
Demographics + + + | Address | [address] | | | [place] [address] | + + + | Home Phone | | + + + | Preferred Language | Unknown | + + + | Marital Status | | + + + | Denominational Affiliation | 1001 | + + + | Race | Unknown | + + + | Ethnic Group | Unknown | + + + Author + + + | Author | [facility] | | | and [place] | + + + | Organization | [facility] | | | and [...] [place] | | | | | [address] | | + + + + + | Deanna Lawson | ECON | Unknown | | + + + + + Care Team Providers + +------+ + | Care Chief Analytics Officer Name | Role | Phone | + [...] [address] | | | | | [place], [place] | [place] [address] | | | | | [address] | [phone] | | | | | [phone] | | | +--------+ + + + [...] as of this encounter Plan of Treatment +--------+---------+ + + + | Date | Type | Specialty | Care Team | Description | +--------+---------+ + + + | 03/17/ | Office | Orthopedic Surgery | Melquiades Baez | | | 2019 | Visit | | [address] | | | | | | [place], | | | | | | [place] [address] | | | | | | [phone] | | | | | | | | +--------+---------+ + + + | 04/21/ | Office | Nephrology | Isiah Jade MD | | 2019 | Visit | | [address] [facility] | | | | | | [address] [place] | | | | | | [address] | | | | | | | | +--------+---------+ + + + | 05/07/ | Office | Cardiology | Charlee Oswald | | | 2019 | Visit | | [address] | | | | | | [address] | | | | | | [place] [address] | | | | | | [phone] | | | | | | | [...] 1.67 cm | | | AR Dec Woodward: 1.62 m/s2 AR Dec Time: 2122.29 ms [...] RV s': | | | 0.10 m/s Shooting Gallery Operator: PARTHA Authenticated by: Vikki Godoy | | | Report Date/Time: 09-27-2018 20:0:35 | | + + + + + | Procedure Note | + + | Leonides Bullock Conversion - 04/11/2019 12:50 PM PDT Patient Name: Francisco Guzmán of | | : 1930 Performing Physician: Vikki | | [facility] INDICATIONS------ | | -----afib, pacemaker, dilated aortic [...] | | cmLVPWd: 0.92 cmLVOT Area: 4.11 rv3TASN Diam: 2.29 cm%FS: 21.62 %EF(Teich): | | [...] mlLAESV Index (A-L): 58.76 ml/m2LAAs A2C: 25.86 [id number] A-L A2C: 90.57 | | mlLALs A2C: 6.26 cmLAAs A4C: 29.36 [id number] A-L A4C: 115.78 mlLALs A4C: 6.32 | | cmRAAs: 26.92 [id number] A-L: 103.75 mlRAESV MOD: 96.91 mlRALs: 5.92 cmTAPSE: | | 1.67 cmAR Dec Woodward: 1.62 m/s2AR Dec Time: 2121.29 msAR maxP.71 mmHgAR PHT: | | 615.46 msAR Vmax: 3.45 m/Armen maxP.22 mmHgAV meanP.30 mmHgAV Vmax: 1.24 | | m/Armen Vmean: 0.84 m/Armen VTI: 25.35 cmAVA Vmax: 2.51 cm2AVA (VTI): 2.84 [id number] | | (Vmax): 0.00 cm2/m2AVAI (VTI): 0.00 [...] mmHgTR Vmax: 3.74 m/sRV s': 0.10 m/s Shooting Gallery Operator: | | DBSAuthenticated by: Vikki [facility] Date/Time: 09-27-2018 20:0:35 IMPRESSION: 1. | | [...] | |TAPSE: 1.67 cm | |AR Dec Woodward: 1.62 m/s2 | |AR Dec Time: 2122.29 [...] |RV s': 0.10 m/s | | | |Shooting Gallery Operator: DBS | |Authenticated by: Vikki Godoy | [...]
--- OUTSIDE RECORDS SUMMARY | ~2020-03-05 | XMS | Encounter Summary ---
Demographics + + + | Address | [address] | | | [place] [address] | + + + | Home Phone | | + + + | Preferred Language | Unknown | + + + | Marital Status | | + + + | Rastafarian Affiliation | 1001 | + + + | Race | Unknown | + + + | Ethnic Group | Unknown | + + + Author + + + | Author | [facility] | | | and [place] | + + + | Organization | [facility] | | [...] [place] | | | | | [address] | | + + + + + | Deanna Lawson | ECON | Unknown | | + + + + + Care Team Providers + +------+ + | Care Biztalk Architect Name | Role | Phone | + +------+ + | Barbara Gilman MD | PCP | | + +------+ + Reason for Visit +--------+--------+ + | Reason | Onset | Comments | | | Date | | +--------+--------+ + | Other | 01/30/ | | | | 2019 | | +--------+--------+ + Encounter Details +--------+ + + + + | Date | Type | Department | Care Team | Description | +--------+ + + + + | 01/30/ | Telephone | [facility] | Melquiades Baez | Other | | 2019 | | ORTHO SPORTS | [address] | | | | | MEDICINE [place] | [facility] | | | | | [facility] | [place] [address] | | | | | [place], [place] | [phone] | | | | | [address] | | | | | | [phone] | | | +--------+ + + + [...] this encounter Miscellaneous Notes Telephone Encounter - Raissa Ruiz RN - 01/31/2020 11:43 AM PDTDOS: 12/22/[address] Right hip gamma nail Dr. Baez Return call to patient. Patient states that he has been changing the dressing about every 4 days. States wound is nearly healed. Advised he can continue to cover if he would prefer bu t can leave dressing off. Patient states understanding. elephone Encounter - Libby Harris - 01/31/2020 11: 27 AM PDTDr. Baez's patient called and is wanting to know what he needs to do with his ban dages on his Right Hip. Please call him back to discuss. documented in this encounter Plan of Treatment +--------+---------+ + + + | Date | Type | Specialty | Care Team | Description | +--------+---------+ + + + | 03/17/ | Office | Orthopedic Surgery | Melquiades Baez | | | 2019 | Visit | | [address] | | | | | | [place], | | | | | | [place] [address] | | | | | | [phone] | | | | | | | | +--------+---------+ + + + | 04/21/ | Office | Nephrology | Isiah Jade MD | | | 2019 | Visit | | [address] | | | | | | [address] [place] | | | | | | [address] | | | | | | | | +--------+---------+ + + + | 05/07/ | Office | Cardiology | Charlee Oswald | | | 2019 | Visit | | [address] | | | | | | [address] | | | | | | [place] [address] | | | | | | [phone] | | | | | | | | +--------+---------+ + + + documented as of this encounter Visit Diagnoses Not on filedocumented in this encounter"
--- OUTSIDE RECORDS SUMMARY | ~2020-03-05 | XMS | Encounter Summary ---
Demographics + + + | Address | [address] | | | [place] [address] | + + + | Home Phone | | + + + | Preferred Language | Unknown | + + + | Marital Status | | + + + | Taoist Affiliation | 1001 | + + + | Race | Unknown | + + + | Ethnic Group | Unknown | + + + Author + + + | Author | [facility] | | | and [place] | + + + | Organization | [facility] | | | [...] [place] | | | | | [address] | | + + + + + | Deanna Lawson | ECON | Unknown | | + + + + + Care Team Providers + +------+ + | Care Transfer Table Operator Helper Name | Role | Phone | + +------+ + PCP | Unavailable | + +------+ + Encounter Details +--------+ + + + + | Date | Type | Department | Care Team | Description | +--------+ + + + + | 08/29/ | Orders Only | [facility] | Conversion | | | 2018 | | CARDIOLOGY [place] | Transaction, | | | | | [address] | Provider Unknown | | | | | [place], [place] | [phone] | | | | | [address] | | | | | | [phone] | | | +--------+ + + + [...] | | | | | [place], | | | | | | [place] [address] | | | | | | [phone] | | | | | | | | +--------+---------+ + + + | 04/21/ | Office | Nephrology | Isiah Jade MD | | | 2019 | Visit | | [address] [facility] | | | | | | [address] [place] [address] | | | | | | [address] | | | | | | | | +--------+---------+ + + + | 05/07/ | Office | Cardiology | Charlee Oswald | | | 2019 | Visit | | [address] | | | | | | [address] | | | | | | [place] [address] | | | | | | [phone] | | | | | | | | +--------+---------+ + + + documented as of this encounter Procedures + +--------+ + + + | Procedure Name | Priori | Date/Time | Associated Diagnosis | Comments | | | ty | | | | + +--------+ + + + | PROTIME INR | Routin | 08/29/2017 | | Results for this | | | e | 11:19 AM | | procedure are in the | | | | PST | | results section. | + +--------+ + + + documented in this encounter Results Shine INR (08/29/2017 11:19 AM PST) + +-------+ + + + | Component | Value | Ref Range | Performed | Pathologist | | | | | At | Signature | + +-------+ + + + | Prothrombin | 31.3 | seconds | EXTERNAL | | | Time | | | LAB | | + +-------+ + + + | INR | 2.9 | | EXTERNAL | | | | | | LAB | | + +-------+ + + + + + | Specimen [...]
--- OUTSIDE RECORDS SUMMARY | ~2020-03-05 | XMS | Encounter Summary ---
Demographics + + + | Address | [address] | | | [place] [address] | + + + | Home Phone | | + + + | Preferred Language | Unknown | + + + | Marital Status | | + + + | Catholic Affiliation | 1001 | + + + | Race | Unknown | + + + | Ethnic Group | Unknown | + + + Author + + + | Author | [facility] | | | and [place] | + [...] [place] | | | | | [address] | | + + + + + | Deanna Lawson | ECON | Unknown | | + + + + + Care Team Providers + +------+ + | Care Cnc Lathe Machinist Name | Role | Phone | + +------+ + | Barbara Gilman MD | PCP | | + +------+ + Reason for Visit +---------+--------+ + | Reason | Onset | Comments | | | Date | | +---------+--------+ + | Testing | 12/01/ | | | | 2020 | | +---------+--------+ + Encounter Details +--------+ + + + + | Date | Type | Department | Care Team | Description | +--------+ + + + + | 12/01/ | Telephone | [facility] | Charlee Oswald | Testing | | 2020 | | CARDIOLOGY [place] | [address] | | | | | [address] | [address] | | | | | [address] | [place] [address] | | | | | [place] | [phone] | | | | | [address] | | | | | | [phone] | | | +--------+ + + + [...] this encounter Miscellaneous Notes Telephone Encounter - Charlee Oswald FNP - 12/02/2019 2:22 PM PDTI called him and r valerieiewed his labs with him ,which needs to show impaired renal function with a creatinine of 2.63 and a BUN of 87 and a GFR of 23 with a potassium of 5, and a BNP of 617, but his CBC sh owed he was less anemic. I discussed the lab results with him, and told him that I was going to stop his spironolact one for now, and repeat his labs in another month. I also told him I would send copies to Dr. Brito.. He appreciated the call 2 :30 PM PDTdocumented in this encounter Plan of Treatment +--------+---------+ + + + | Date | Type | Specialty | Care Team | Description | +--------+---------+ + + + | 03/17/ | Office | Orthopedic Surgery | Melquiades Baez | | 2019 | Visit | | [address] | | | | | | [place] [facility], | | | | | | [place] [address] | | | | | | [phone] | | | | | | | | +--------+---------+ + + + | 04/21/ | Office | Nephrology | Isiah Jade MD | | | 2019 | Visit | | [address] | | | | | | [address] [place] [address] | | | | | | [address] | | | | | | | | +--------+---------+ + + + | 05/07/ | Office | Cardiology | Charlee Oswald | | | 2019 | Visit | | [address] | | | | | | [address] | | | | | | [place] [address] | | | | | | [phone] | | | | | | | | +--------+---------+ + + + + +------+--------+ + + | Name | Type | Priori | Associated Diagnoses | Order Schedule | | | | ty | | | + +------+--------+ + + | Basic Metabolic | Lab | Routin | Stage 4 chronic | Expected: | | Panel | | e | kidney disease (HCC) | 01/01/2020, Expires: | | | | | | 12/01/2020 | + +------+--------+ + + documented as of this encounter Visit Diagnoses + + | Diagnosis | + + | Stage 4 chronic kidney disease (HCC) - Primary | + + documented in this encounter"
--- OUTSIDE RECORDS SUMMARY | ~2020-03-05 | XMS | Encounter Summary ---
Demographics + + + | Address | [address] | | | [place] [address] | + + + | Home Phone | | + + + | Preferred Language | Unknown | + + + | Marital Status | | + + + | Spiritism Affiliation | 1001 | + + + [...] [place] | | | | | [address] | | + + + + + | Deanna Lawson | ECON | Unknown | | + + + + + Care Team Providers + +------+ + | Care Wrapper Selector Name | Role | Phone | + +------+ + | Barbara Gilman MD | PCP | | + +------+ + Reason for Visit + +--------+ + | Reason | Onset | Comments | | | Date | | + +--------+ + | Procedure | 07/09/ | | | | 2019 | | + +--------+ + Encounter Details +--------+ + + + + | Date | Type | Department | Care Team | Description | +--------+ + + + + | 02/26/ | Telephone | [facility] | Hakeem Perry, | Procedure | | 2019 | | GASTROENTEROLOGY | Steam Brush Operator | | | | | [address] | | | | | | [place], [place] | | | | | | [address] | | | | | | [phone] | | | +--------+ + + + [...] this encounter Miscellaneous Notes Telephone Encounter - Hakeem Perry Medical Assistant - 02/27/2020 2:01 PM PDTPatient returned call. Stated he would prefer to do procedure in March. Will enter recall and call patient when March schedule opens. ele phone Encounter - Hakeem Perry Medical Assistant - 02/27/2020 1:[address] Aguirre s: "Repeat upper endoscopy will be performed in 8 to 10 weeks to evaluate for healing of sever e esophagitis." Attempted to reach patient to schedule. Patient was not available. Asked to have patie nt call us back. documented in this encounter Plan of Treatment +--------+---------+ + + + | Date | Type | Specialty | Care Team | Description | +--------+---------+ + + + | 03/17/ | Office | Orthopedic Surgery | Melquiades Baez | | 2019 | Visit | | [address] | | | | | | [place] [facility], | | | | | | [place] [address] | | | | | | [phone] | | | | | | | | +--------+---------+ + + + | 04/21/ | Office | Nephrology | Isiah Jade MD | | | 2019 | Visit | | [address] | | | | | | [address] [place] [address] | | | | | | [address] | | | | | | | | +--------+---------+ + + + | 05/07/ | Office | Cardiology | Charlee Oswald | | | 2019 | Visit | | [address] | | | | | | [address] | | | | | | [place] [address] | | | | | | [phone] | | | | | | | | +--------+---------+ + + + documented as of this encounter Visit Diagnoses Not on filedocumented in this encounter
--- OUTSIDE RECORDS SUMMARY | ~2020-03-05 | XMS | Encounter Summary ---
Demographics + + + | Address | [address] | | | [place] [address] | + + + | Home Phone | | + + + | Preferred Language | Unknown | + + + | Marital Status | | + + + | Moravian Affiliation | 1001 | + + + | Race | Unknown | + + + | Ethnic Group | Unknown | + + + Author + + + | Author | [facility] | | | and [place] | + + + | Organization | [facility] | | | [...] [place] | | | | | [address] | | + + + + + | Deanna Lawson | ECON | Unknown | | + + + + + Care Team Providers + +------+ + | Care Agricultural Appraiser Name | Role | Phone | + [...] + + | 02/19/ | Telephone | [facility] | Isiah Jade MD | Other (Lab Results ) | | 2019 | | NEPRHOLOGY [place] | [address] | | | | | [address] | [address] [place], [place] | | | | | [address] [place], [place] | [address] | | | | | [address] | | | | | | [phone] | | | +--------+ + + + [...] mented in this encounter Plan of Treatment +--------+---------+ + + + | Date | Type | Specialty | Care Team | Description | +--------+---------+ + + + | 03/17/ | Office | Orthopedic Surgery | Melquiades Baez | | | 2019 | Visit | | [address] | | | | | | [place], | | | | | | [place] [address] | | | | | | [phone] | | | | | | | | +--------+---------+ + + + | 04/21/ | Office | Nephrology | Isiah Jade MD | | | 2019 | Visit | | [address] | | | | | | [facility] | | | | | [address] | | | | | | | | +--------+---------+ + + + | 05/07/ | Office | Cardiology | Charlee Oswald | | | 2019 | Visit | | [address] | | | | | | [address] | | | | | | [place] [place] [address] | | | | | | [phone] | | | | | | | [...] conditions influencing health status | + + documented in this encounter"
--- OUTSIDE RECORDS SUMMARY | ~2020-03-05 | XMS | Encounter Summary ---
Demographics + + + | Address | [address] | | | [place] [address] | + + + | Home Phone | | + + + | Preferred Language | Unknown | + + + | Marital Status | | + + + | Jain Affiliation | 1001 | + + + [...] [place] | | | | | [address] | | + + + + + | Deanna Lawson | ECON | Unknown | | + + + + + Care Team Providers + +------+ + | Care Technical Training Coordinator Name | Role | Phone | + +------+ + | Barbara Gilman MD | PCP | | + +------+ + Reason for Visit + + + | Reason | Comments | + + + | Follow-up | right Femur | + + + Surgery OP (Urgent) + +--------+ + + + + | Status | Reason | Specialty | Diagnoses / | Referred By | Referred To | | | | | Procedures | Contact | Contact | + +--------+ + + + + | Authorized | | Orthopedic | Diagnoses | Jc | Sam Nw Osm | | | | Surgery | 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[address] | | | | | mellitus | [address] | [facility], | | | | | with other | [place] | [place] | | | | | diabetic | [address] | [address] | | | | | kidney | Phone: | Phone: | | | | | complication | [phone] | [phone] | | | | | (HCC) | Fax: | Fax: | | | | | Chronic | [phone] | [phone] | | | | | diastolic | | | | | | | (congestive) | | | | | | | heart | | | | | | | failure | | | | | | | (HCC) | | | | | | | Personal | | | | | | | history of | | | | | | | transient | | | | | | | ischemic | | | | | | | attack | | | | | | | (TIA), and | | | | | | | cerebral | | | | | | | infarction | | | | | | | without | | | | | | | residual | | | | | | | deficits | | | | | | | Displaced | | | | | | | intertrochan | | | | | | | teric | | | | | | | fracture of | | | | | | | right femur, | | | | | | | subsequent | | | | | | | encounter | | | | | | | for closed | | | | | | | fracture | | | | | | | with routine | | | | | | | healing | | | | | | | Acute kidney | | | | | | | failure, | | | | | | | unspecified | | | | | | | (HCC) | | | | | | | 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, | | | | | | | stage 3 | | | | | | | (moderate) | | | | | | | (HCC) | | | | | | | Weakness | | | | | | | Unspecified | | | | | | | bacterial | | | | | | | pneumonia | | | | | | | Acute | | | | | | | posthemorrha | | | | | | | gic anemia | | | | | | | Gastrointest | | | | | | | inal | | | | | | | hemorrhage, | | | | | | | unspecified | | | | | | | 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 | | | | | | | hemorrhage | | | | | | | Permanent | | | | | | | atrial | | | | | | | fibrillation | | | | | | | (HCC) | | | | | | | Essential | | | | | | | (primary) | | | | | | | hypertension | | | + +--------+ + + + + Encounter Details +--------+---------+ + + + | Date | Type | Department | Care Team | Description | +--------+---------+ + + + | 01/20/ | Office | [facility] | Melquiades Baez | Right hip pain | | 2020 | Visit | [facility] | [address] | (Primary Dx); | | | | MEDICINE EDUARDO | [facility], | Orthopedic aftercare | | | | [address] [facility] | [place] [address] | | | | | [place], [place] | [phone] | | | | | [address] | | | | | | [phone] | | | +--------+---------+ + + + [...] + + + | Blood Pressure | - | - | | + + + + + | Pulse | 64 | 01/21/2020 1:31 PM | | | | | PDT | | + + + + + | Temperature | 36.4 C (97.5 F) | 01/21/2020 1:31 PM | | | | | PDT | | + + + + + | Respiratory Rate | - | - | | + + + + + | Oxygen Saturation | 96% | 01/21/2020 1:31 PM | | | | | PDT | | + + + + + | Inhaled Oxygen | - | - | | | Concentration | | | | + + + + + | Weight | - | - | | + + + + + | Height | 165.1 cm (5' 5") | 01/21/2020 1:31 PM | | | | | PDT | | + + + + + | Body Mass Index | - | - | | + + + + + documented in this encounter Progress Notes Melquiades Baez DO - 01/21/2020 1:40 PM PDT [facility] Service: Orthopedic Surgery Post Operative Note DOS: 12/24/2019 right hip intramedullary nail for an intertrochanteric fracture History of Present Illness: Andres Guzmán is doing well at this point. He is up and walking around. He rates his pain about a 0-2 out of 10. Overall he is happy with his care at this point. PHYSICAL EXAMINATION GEN: Alert and oriented x3, No acute distress HEENT: extraocular movements intact, normocephalic atraumatic ABD: soft, non-tender, non distended Right hip: Demonstrates incisions well-healed no signs or symptoms of infection. He can fl ex and extend the toes. Flex and extend the ankle. Radiographs: Recent Results (from the past 360 hour(s)) XR Hip Right 2-3 Views Narrative History: This is a 89 y.o. year old male. Diagnosis for Order 1. Right hip pain . Findings: 2 views of the right hip demonstrate a well healing intertrochanteric fracture. No evidence of loosening. Notes loss of fixation. Overall appears to be stable. There is periosteal healing.. Impression: Healing intertrochanteric hip fracture. Electronically signed by: Melquiades Baez DO 01/24/2020 1:05 PM Melquiades Baez DO has created this entry using [employer] Voice Recognition software and [employer] macros. The entry has been reviewed and there may still exist sound alike word errors. ASSESSMENT: 1. Right hip pain XR Hip Right 2-3 Views 2. Orthopedic aftercare PLAN: We did review the patient's x-rays today. All of his questions were answered. He will rem ain weightbearing as tolerated. I will see him back in about 4 weeks. He did not require a nything further for me today. Melquiades Baez DO 01/24/2020 2:28 PM documented in this encounter Plan of Treatment +--------+---------+ + + + | Date | Type | Specialty | Care Team | Description | +--------+---------+ + + + | 03/17/ | Office | Orthopedic Surgery | Melquiades Baez | | 2019 | Visit | | [address] | | | | | | [address] [place], | | | | | | [place] [address] | | | | | | [phone] | | | | | | | | +--------+---------+ + + + | 04/21/ | Office | Nephrology | Isiah Jade MD | | 2019 | Visit | | [address] [facility] | | | | | | [address] | | | | | | [address] | | | | | | | | +--------+---------+ + + + | 05/07/ | Office | Cardiology | Charlee Oswald | | | 2019 | Visit | | [address] | | | | | | [address] | | | | | | [place] [address] | | | | | | [phone] | | | | | | | | +--------+---------+ + + + documented as of this encounter Results XR Hip Right 2-3 Views (01/21/2020 1:49 PM PDT) + + | Specimen | + + | | + + + + + | Narrative | Performed At | + + + | History: This | [facility] | | is a 89 y.o. year old male. Diagnosis for Order 1. Right hip pain | | | . Findings: 2 views of the right hip demonstrate a well healing | | | intertrochanteric fracture. No evidence of loosening. Notes loss | | | of fixation. Overall appears to be stable. There is periosteal | | | healing.. Impression: Healing intertrochanteric hip fracture. | | | Electronically signed by: Melquiades Baez DO 01/24/2020 1:05 PM Melquiades | | | Cee Baez DO has created this entry using [employer] Voice | | | Recognition software and [employer]. The entry has been reviewed | | | and there may still exist sound alike word errors. | | | | | |Electronically signed by: Melquiades Baez DO 01/24/2020 1:05 PM | | | | | | | | |Melquiades Baez DO has created this entry using [employer] | | |Recognition software and [employer] macros. The entry has been reviewed and | | |there may still exist sound alike word errors. | | | | | + + + + +---------+ + + | Performing | Address | City/State/Zipcode | Phone Number | | Organization | | | | + +---------+ + + | [facility] | | | | + +---------+ + + documented in this encounter Visit Diagnoses + + | Diagnosis | + + | Right hip pain - Primary Pain in joint, pelvic region and thigh | + + | Orthopedic aftercare Unspecified orthopedic aftercare | + + documented in this encounter
--- OUTSIDE RECORDS SUMMARY | ~2020-03-05 | XMS | Encounter Summary ---
Demographics + + + | Address | [address] | | | [place] [address] | + + + | Home Phone [...] [place] | | | | | [address] | | + + + + + | Deanna Lawson | ECON | Unknown | | + + + + + Care Team Providers + +------+ + | Care Shank Tapper Name | Role | Phone | + +------+ + | Barbara Gilman MD | PCP | | + +------+ + Reason for Visit + + + | Reason | Comments | + + + | Device Check | Daniels pacemaker in office device check w/Jay | | (In-office) | | + + + Encounter Details +--------+ + + + + | Date | Type | Department | Care Team | Description | +--------+ + + + + | 05/07/ | Procedure | [facility] | Enoch Thompson, | Cardiac pacemaker in | | 2019 | visit | CARDIOLOGY OPHELIA | MD [address] | situ (Primary Dx); | | | | [address] | [place], | Permanent atrial | | | | [place] | [place] [address] | fibrillation (HCC); | | | | [address] | [phone] | Chronic diastolic | | | | [phone] | | heart failure (HCC) | +--------+ [...] attached to scheduled encounter for additional details. neon sign erector: Thi Burch RN Associated attestation - Enoch Thompson MD - 06/01/2019 1:40 PM PDTA generator change o ut was performed on February 04, 2019. Normal device function was seen today for this Daniels [employer] ient[employer] single-chamber device. The pacing threshold was 0.6 V at 0.6 ms and 0.4 ms at 0.7 V. He was left at 2 V at 0.5 ms. There has been no arrhythmias. 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 currydocumented in this encounter Plan of Treatment +--------+---------+ + + + | Date | Type | Specialty | Care Team | Description | +--------+---------+ + + + | 03/17/ | Office | Orthopedic Surgery | Melquiades Baez | | 2019 | Visit | | [address] | | | | | | [place] | | | | | | [place] [address] | | | | | | [phone] | | | | | | | | +--------+---------+ + + + | 04/21/ | Office | Nephrology | Isiah Jade MD | | | 2019 | Visit | | [address] | | | | | | [address] | | | | | | [address] | | | | | | | | +--------+---------+ + + + | 05/07/ | Office | Cardiology | Charlee Oswald | | | 2019 | Visit | | [address] | | | | | | [address] | | | | | | [place] [address] | | | | | | [phone] | | | | | | | [...] At | + + + | Thi Burch | LUCA | | JIAN 05/29/2019 16:07Device interrogation done by Enoch Thompson Any | | | events or changes listed in office note. See device data attached to | | | scheduled encounter for additional details. neon sign erector: Thi Burch RN | | | | | |See device data attached to scheduled encounter for additional | | |details. | | | | | |neon sign erector: Thi Burch RN | | | | [...] failure | + + documented in this encounter"
--- OUTSIDE RECORDS SUMMARY | ~2020-03-05 | XMS | Encounter Summary ---
Demographics + + + | Address | [address] | | | [place] [address] | + + + | Home Phone | | + + + | Preferred Language | Unknown | + + + | Marital Status | | + + + | Mormonism Affiliation | 1001 | + + + [...] [place] | | | | | [address] | | + + + + + | Deanna Lawson | ECON | Unknown | | + + + + + Care Team Providers + +------+ + | Care Visual Education Director Name | Role | Phone | + [...] + + | 01/26/ | Documentati | [facility] | Nelson, | Other (PCP progress | | 2020 | on | NEPHROLOGY JESSI | Kita Sterling | note 01/23/20) | | | | [address] | [employer]structor | | | | | [address] [place] | | | | | | [address] | | | | | | [phone] | | | +--------+ + + + [...] | | | | | | [address] [facility], | | | | | | [place] [address] | | | | | | [phone] | | | | | | | | +--------+---------+ + + + | 04/21/ | Office | Nephrology | Isiah Jade MD | | | 2019 | Visit | | [address] | | | | | | [address] [place] | | | | | | [address] | | | | | | | | +--------+---------+ + + + | 05/07/ | Office | Cardiology | Charlee Oswald | | | 2019 | Visit | | [address] | | | | | | [address] | | | | | | [place] [address] | | | | | | [phone] | | | | | | | | +--------+---------+ + + + documented as of this encounter Visit Diagnoses Not on filedocumented in this encounter"
--- OUTSIDE RECORDS SUMMARY | ~2020-03-05 | XMS | Encounter Summary ---
Demographics + + + | Address | [address] | | | [place] [address] | + + + | Home Phone | | + + + | Preferred Language | Unknown | + + + | Marital Status | | + + + | Jewish Affiliation | 1001 | + + + | Race | Unknown | + + + | Ethnic Group | Unknown | + + + Author + + + | Author | [facility] | | | and [place] | + + + | Organization | [facility] | | [...] [place] | | | | | [address] | | + + + + + | Deanna Lawson | ECON | Unknown | | + + + + + Care Team Providers + +------+ + | Care Hospitality House Supervisor Name | Role | Phone | + +------+ + | Barbara Gilman MD | PCP | | + +------+ + Encounter Details +--------+ + + + + | Date | Type | Department | Care Team | Description | +--------+ + + + + | 01/03/ | Orders Only | [facility] | Lamont Acuña MD | | | 2020 | | GASTROENTEROLOGY | [address] | | | | | [address] | [place], [place] | | | | | [place], [place] | [address] | | | | | [address] | [phone] | | | | | [phone] | | | +--------+ + + + [...] documented as of this encounter Progress Notes Lamont Acuña MD - 01/04/2020 2:56 PM PDTThe pantoprazole was reordered so the patient c an be on PPI for at least 2 or 3 months. Repeat upper endoscopy will be performed in 8 to 10 weeks to evaluate for healing of severe esophagitis. documented in this encounter Plan of Treatment +--------+---------+ + + + | Date | Type | Specialty | Care Team | Description | +--------+---------+ + + + | 03/17/ | Office | Orthopedic Surgery | Melquiades Baez | | 2019 | Visit | | [address] | | | | | | [place], | | | | | | [place] [address] | | | | | | [phone] | | | | | | | | +--------+---------+ + + + | 04/21/ | Office | Nephrology | Isiah Jade MD | | 2019 | Visit | | [address] [facility] | | | | | | [address] [place] | | | | | | [address] | | | | | | | | +--------+---------+ + + + | 05/07/ | Office | Cardiology | Charlee Oswald | | | 2020 | Visit | | [address] | | | | | | [address] | | | | | | [place] [address] | | | | | | [phone] | | | | | | | | +--------+---------+ + + + documented as of this encounter Visit Diagnoses Not on filedocumented in this encounter"
--- OUTSIDE RECORDS SUMMARY | ~2020-03-05 | XMS | Encounter Summary ---
Demographics + + + | Address | [address] | | | [place] [address] | + + + | Home Phone | | + + + | Preferred Language | Unknown | + + + | Marital Status | | + + + | Catholic Affiliation | 1001 | + + + | Race | Unknown | + + + | Ethnic Group | Unknown | + + + Author + + + | Author | [facility] | | | and [place] | + + + | Organization | [facility] | | [...] [place] | | | | | [address] | | + + + + + | eDanna Lawson | ECON | Unknown | | + + + + + Care Team Providers + +------+ + | Care Synthetic Department Supervisor Name | Role | Phone | + +------+ + | Barbara Gilman MD | PCP | | + +------+ + Encounter Details +--------+ + + + + | Date | Type | Department | Care Team | Description | +--------+ + + + + | 08/26/ | Orders Only | [facility] | Conversion | | | 2016 | | CONVERSION [address] | Transaction, | | | | [address] | Provider Unknown | | | | | [place], [place] | | | | | | [address] | (Fax) | | | | | [phone] | | | +--------+ + + + [...] | | | | | | [facility] [facility], | | | | | | [place] [address] | | | | | | [phone] | | | | | | | | +--------+---------+ + + + | 04/21/ | Office | Nephrology | Isiah Jade MD | | 2019 | Visit | | [address] [facility] | | | | | | [address] [place] | | | | | | [address] | | | | | | | | +--------+---------+ + + + | 05/07/ | Office | Cardiology | Charlee Oswald | | | 2019 | Visit | | [address] | | | | | | [address] | | | | | | [place] [address] | | | | | | [phone] | | | | | | | [...]
--- OUTSIDE RECORDS SUMMARY | ~2020-03-05 | XMS | Encounter Summary ---
Demographics + + + | Address | [address] | | | [place] [address] | + + + | Home Phone | | + + + | Preferred Language | Unknown | + + + | Marital Status | | + + + | Religion Affiliation | 1001 | + + + | Race | Unknown | + + + | Ethnic Group | Unknown | + + + Author + + + | Author | [facility] | | | and [place] | + + + | Organization | [facility] | | | [...] [place] | | | | | [address] | | + + + + + | Deanna Lawson | ECON | Unknown | | + + + + + Care Team Providers + +------+ + | Care Nurse Coordinator Name | Role | Phone | + +------+ + | Barbara Gilman MD | PCP | | + +------+ + Encounter Details +--------+ + + + + | Date | Type | Department | Care Team | Description | +--------+ + + + + | 10/25/ | Orders Only | [facility] | Charlee Oswald | | | 2019 | | CARDIOLOGY ALYX | [address] | | | | | [address] | [address] | | | | | [address] | [place] [address] | | | | | [place] | [phone] | | | | | [address] | | | | | | [phone] | | | +--------+ + + + [...] | | | | | [address] [place] | | | | | | [place] [address] | | | | | | [phone] | | | | | | | | +--------+---------+ + + + | 04/21/ | Office | Nephrology | Isiah Jade MD | | | 2019 | Visit | | [address] [facility] | | | | | | [address] | | | | | | [address] | | | | | | | | +--------+---------+ + + + | 05/07/ | Office | Cardiology | Charlee Oswald | | | 2019 | Visit | | [address] | | | | | | [address] | | | | | | [place] [address] | | | | | | [phone] | | | | | | | [...]
--- OUTSIDE RECORDS SUMMARY | ~2020-03-05 | XMS | Encounter Summary ---
Demographics + + + | Address | [address] | | | [place] [address] | + + + | Home Phone | | + + + | Preferred Language | Unknown | + + + | Marital Status | | + + + | Orthodoxy Affiliation | 1001 | + + + [...] [place] | | | | | [address] | | + + + + + | Deanna Lawson | ECON | Unknown | | + + + + + Care Team Providers + +------+ + | Care Executive Office Manager Name | Role | Phone | [...] Description | +--------+---------+ + + + | 12/21/ | Surgery | [facility] | Melquiades Baez | NAILING IM BETSY FEMUR | | 2019 | [facility] | DO [address] | - [address] | | | | OPERATING ROOM [address] | [facility], | | | | | [address] | [place] [address] | | | | | [place], [place] | [phone] | | | | | [address] | | | | | | [phone] | | | +--------+---------+ + + + [...] + + + | Blood Pressure | 129/62 | 12/22/2019 6:32 AM | | | | | PDT | | + + + + + | Pulse | 63 | 12/22/2019 6:32 AM | | | | | PDT | | + + + + + | Temperature | 36.8 C (98.3 F) | 12/22/2019 6:32 AM | | | | | PDT | | + + + + + | Respiratory Rate | 18 | 12/22/2019 6:32 AM | | | | | PDT | | + + + + + | Oxygen Saturation | 100% | 12/22/2019 6:32 AM | | | | | PDT | | + + + + + | Inhaled Oxygen | - | - | | | Concentration | | | | + + + + + | Weight | - | - | | + + + + + | Height | 165.1 cm (5' 5") | 12/21/2019 9:12 PM | | | | | PDT [...] was on board. No immediate indication for FIRER HELPER. Patient was also seen by physical therapy and occupational therapy and was recommended for discharging to [facility]. However patient will b e going to [facility] at this time. Patient also had [...] No CVA tenderness, no spinal tenderness Disposition: [facility] Condition: Fair No discharge procedures on file. [...] skin 3 | | | 20 | 0 | | units/mL injection | times daily [...] BUNCREARATIO 30 01/01/2020 PTH 72.57 (A) 04/01/2019 [id number] 25.2 (L) 12/27/2019 CALCIUM 8.6 01/01/2020 PHOS [...] been following up with ENEDINA mena in [place]. He has unrecovered acute kidney injury and a higher baseline creatinine. At this time there is no clinical uremia, refractory volume overload, refractory acidosis, refractory hyperkalemia and no urgent indication of starting FIRER HELPER. Neither is there an indication for diagnostic [...] Incentive spirometry. Transfuse Prn. No indication for FIRER HELPER for now. Await renal recovery. On discharge [...] was completed later after rounds. Dictation software, [employer] sentronics, was used which may contain error for [...] but not limited to potential need for FIRER HELPER . This is a patient with multiple [...] Hancock R N - 01/01/2020 11:45 AM PDTWound care RN came to see pt to follow up on his hip incision. RN states PA has changed previously saturated dressing and pt is DC'ing home; ride is waiting downstairs. Deanna Doe RN, CMSRN, [facility] Inpatient Wound Ostomy Care [phone] 01/01/2020 11:46 AM Chai, Savana Irving RN - 01/01/2020 6:34 AM [...] BUNCREARATIO 25 12/31/2019 PTH 72.57 (A) 04/01/2019 [id number] 25.2 (L) 12/27/2019 CALCIUM 8.5 12/31/2019 PHOS [...] been following up with ENEDINA mena in [place]. He has unrecovered acute kidney injury and a higher baseline creatinine. At this time there is no clinical uremia, refractory volume overload, refractory acidosis, refractory hyperkalemia and no urgent indication of starting FIRER HELPER. Neither is there an indication for diagnostic [...] Incentive spirometry. Transfuse Prn. No indication for FIRER HELPER for now. Await renal recovery. I discussed [...] was completed later after rounds. Dictation software, [employer] sent[employer], was used which may contain error for [...] but not limited to potential need for FIRER HELPER . This is a patient with multiple [...] 98.3 97.6 98.6 97.6 Resp 16 19 19 16 Weight - - - - [...] Greene MD 12/31/2019 11:38 AM Marycarmen Park ARNP - 12/31/2019 10:58 AM PDT . ORTHOPEDIC [...] injuries: see wound RN note for treatment. [facility] ed, continue wound care at swing bed, send with extra dressing supplies. *Metabolic bone disorder: elevated PTH and phosphorus. Treatment per training and development director (see thei r note). Subjective No chest [...] signed by: ENEDINA Ramos, 12/31/2019 10:58 AM Lelia Read RN - 12/30/2019 2:4 5 PM PDT [...] pt. PURVI Goodrich RN CWON 12/30/19 14:53 Katharine, Jerry Malik MD - 12/30/2019 1:46 PM PDT Service: Hospitalist Daily Progress Note Andres Guzmán 89 y.o. : 1930 SEX: male PCP: Barbara Gilman MD Hospital Day: LOS: 9 SUBJECTIVE Patient Summary: Patient is an 89-year-old male with past medical history of HTN, DM Type 2, CKD Stage III w ith baseline creatinine 1.7 who was admitted as a transfer from [facility] due t o a mechanical fall [...] finding placement and he was accepted by [facility] in [place], [place] for rehabilitation purposes. Hospital stay was [...] Medications Current Facilty-Administered PRN Medications Ordered in [facility] Medication Dose Route Frequency Provider Last Rate [...] PRN Lamont Hernandez MD 25 mg at 12/08 1011 metoclopramide (REGLAN) 5 mg/mL injection 5 [...] but remains week, he is accepted at [facility] in [place] with discharge plans tomorrow for rehabilit ation [...] discharge plans to Sw[facility] in [facility] tomorrow. DVT prophylaxis with SCD's only due to risks of bleeding. Discharge plans tomorrow to [facility] in [place], [place] for rehabi litation. Called his daughter Ms. Huerta and left a message with updated information at phone number [phone]. Jerry Chino MD 12/30/2019 turgill, DALILA Keys - 12/30/2019 12:35 PM PDTFormatting of this note might be different from the [facility] Service: Gastroenterology Consult Progress Note Hospital Day: LOS: 9 days SUBJECTIVE Patient Summary: This is an 89-year-old male with multiple medical problems and a his tory of hypertension, diabetes, CKD stage III who was transferred from [facility] t o a fall and he sustained [...] Infusions dextrose 10% pantoprazole 8 mg/hr (12/30/19 0970) PRN Medications acetaminophen OR acetaminophen OR acetaminophen, [...] motor deficits. PSYCHIATRIC: Appropriate, affect appears normal [facility] Gastroenterology Patient Name: Andres Guzmán Procedure Date: [...] physician, the nurse, the anesthesiologist and the telecommunications field technician in the pre-procedure area in the [...] successful. Thermal coagulation with Gold probe 7 Sammarinese x 5 pulses was successful with hemostasis. [...] 12/29/2019 8:36 AM Number of Addenda: 0 [facility] DATA Lab Results Component Value Date WBC [...] ll with any questions. Florina Cantu PA-C [facility] Gastroenterology 12/30/2019 Associated attestation - Lamont Hernandez MD - 12/31/2019 2:17 PM [id number] male with GI bleeding due to duodenal ulcer with visible vessel. The ulcer and visible vessel were tr eated with injection and gold probe thermal coagulation. The patient was seen and examined by me personally. The case was discussed with the physician's graduate assistant athletic trainer and I agree with the assessment and p tim as outlined in the note. Continue PPI IV infusion for total of 72 hours and then when patient is discharged he must be on twice daily PPI for 8 weeks. Resume Eliquis in 1 week. Lamont Hernandez MD Gastroenterology staffAkronMarycarmen, [facility] - 12/30/2019 11:05 AM PDTFormatting of th [...] status. Disposition: Plan to discharge tomorrow[facility] to [facility], once medically stable and cleared by [...] BUNCREARATIO 23 12/30/2019 PTH 72.57 (A) 04/01/2019 [id number] 25.2 (L) 12/27/2019 CALCIUM 8.6 12/30/2019 PHOS [...] been following up with ENEDINA mena in [place]. That had improved with nonoliguric state but now seems to have leveled off at around 3 and this may be reflection of unrecovered acute kidney injury and a higher baseline creatinine. At this time there is no clinical uremia, refractory volume overload, refractory acidosis, refractory hyperkalemia and no urgent indication of starting FIRER HELPER. Neither is there an indication for diagnostic [...] Incentive spirometry. Transfuse Prn. No indication for FIRER HELPER for now. Await renal recovery. I discussed [...] was completed later after rounds. Dictation software, [employer], was used which may contain error for [...] but not limited to potential need for FIRER HELPER . This is a patient with multiple [...] BUNCREARATIO 30 12/29/2019 PTH 72.57 (A) 04/01/2019 [id number] 25.2 (L) 12/27/2019 CALCIUM 8.7 12/29/2019 PHOS [...] been following up with ENEDINA mena in [place]. That seems to be improving with nonoliguric state and small reduction in creatinine. At this time there is no clinical uremia, refractory volume overload, refractory acidosis, refractory hyperkalemia and no urgent indication of starting FIRER HELPER. Neither is there an indication for diagnostic [...] Incentive spirometry. Transfuse Prn. No indication for FIRER HELPER for now. Await renal recovery. I discussed [...] was completed later after rounds. Dictation software, [employer], was used which may contain error for [...] but not limited to potential need for FIRER HELPER . acetaminophen 1,000 mg Oral 3 times [...] dextrose 10% pantoprazole 8 mg/hr (12/29/19 1151) Jerry Alcantar MD - 12/29/2019 8:52 AM PDT Service: Hospitalist Daily Progress Note Andres Guzmán 89 y.o. : 1930 SEX: male PCP: Barbara Gilman MD Hospital Day: LOS: 8 SUBJECTIVE Patient Summary: Patient is an 89-year-old male with past medical history of HTN, DM Type 2, CKD Stage III w ith baseline creatinine 1.7 who was admitted as a transfer from [facility] due t o a mechanical fall [...] finding placement and he was accepted by [facility] in [place], [place] for rehabilitation purposes. Hospita l stay [...] but needs rehabilitation, he is accepted by [facility] in [place], [place] with discharge plans early next weeks [...] another 1 to 2 to SNF in [place], [place] if remains stable and improve d. Called his daughter Ms. Huerta and updated her about plans at phone number [phone]. Jerry Chino MD 12/29/2019 Norma Sarabia RN [...] BUNCREARATIO 28 12/28/2019 PTH 72.57 (A) 04/01/2019 [id number] 25.2 (L) 12/27/2019 CALCIUM 8.5 12/28/2019 PHOS [...] been following up with ENEDINA mena in [place]. That seems to be improving with nonoliguric state and small reduction in creatinine. At this time there is no clinical uremia, refractory volume overload, refractory acidosis, refractory hyperkalemia and no urgent indication of starting FIRER HELPER. Neither is there an indication for diagnostic [...] Incentive spirometry. Transfuse Prn. No indication for FIRER HELPER for now. Await renal recovery. I discussed [...] was completed later after rounds. Dictation software, [employer], was used which may contain error for [...] but not limited to potential need for FIRER HELPER . acetaminophen 1,000 mg Oral 3 times [...] dinner dextrose 10% pantoprazole 8 mg/hr (12/28/19 1601) orter, DALILA Grant - 12/28/2019 10:49 AM PDT [facility] Service: Orthopedic Surgery Progress Note Hospital Day: [...] DALILA Peralta has created this entry using [employer] and [employer] macros. The entry has been reviewed and [...] who was admitted as a transfer from [facility] due t o a mechanical fall [...] finding placement and he was accepted by [facility] in [place], [place] for rehabilitation purposes. Hospita l stay [...] Medications Current Facilty-Administered PRN Medications Ordered in [facility] Medication Dose Route Frequency Provider Last Rate Last Dose aluminum & magnesium hydroxide-simethicone (MAALOX PLUS REGULAR STRENGTH) 200-200-20 mg /5 mL suspension 30 mL 30 mL Oral Q4H PRN Jerry Nathen Chino MD dextrose 50% injection 12.5-25 g [...] making slow progress, he is accepted by [facility] in [place], [place] with discharge plans possib ly early [...] 1 to 2 to a SNF in [place], [place] when renal functions are st able and cleared by Nephrology services. Also called his daughter Ms. Huerta and updated her a bout plans at phone number [phone]. Jerry Chino MD 12/28/2019 hazal Robbins COTA - 12/27/2019 4:15 PM PDT MISSED [...] been following up with ENEDINA mena in [place]. That seems to be improving with nonoliguric state and small reduction in creatinine. At this time there is no clinical uremia, refractory volume overload, refractory acidosis, refractory hyperkalemia and no urgent indication of starting FIRER HELPER. Neither is there an indication for diagnostic [...] Incentive spirometry. Transfuse Prn. No indication for FIRER HELPER for now. Await renal recovery. I discussed [...] was completed later after rounds. Dictation software, [employer], was used which may contain error for [...] but not limited to potential need for FIRER HELPER . acetaminophen 1,000 mg Oral 3 times [...] in admission status. Disposition: Plan to discharge Sukhdev, to Jail [facility], once medically stable a nd cleared [...] Net -400 ml . Treatment plan: per training and development director; slowly improving. *Blood pressure: labile; See VS [...] disorder: elevated PTH and phosphorus. Treatment per training and development director (see thei r note). Subjective No chest [...] PDT Service: Hospitalist Daily Progress Note Andres Jones Ramirez 89 y.o. : 1930 SEX: male PCP: Barbara Gilman MD Hospital Day: LOS: 6 SUBJECTIVE Patient Summary: Patient is an 89-year-old male with past medical history of HTN, DM Type 2, CKD Stage III w ith baseline creatinine 1.7 who was admitted as a transfer from [facility] due t o a mechanical fall [...] Medications Current Facilty-Administered PRN Medications Ordered in [facility] Medication Dose Route Frequency Provider Last Rate [...] trength and mobility. He is accepted by [facility] in [place], [place] and discharge is delayed due to [...] to 3 days to a SNF in [place], [place] when renal functions a re stable and cleared by Nephrology services. Jerry Chino MD 12/27/2019 Linda Montalvo RN - 12/26/2019 5:09 PM PDT [facility] Service: Wound Care Consult Note Hospital Day: [...] Right hip blister(s);skin tear Placement Date/Time: 12/25/19 105 Present on Hospital Admission: No Primary Wound [...] signed by: ENEDINA Ramos, 12/26/2019 12:55 PM Jerry Alcantar MD - 0 7:37 AM PDT Service: Hospitalist Daily Progress Note Andres Guzmán 89 y.o. : 1930 SEX: male PCP: Barbara Gilman MD Hospital Day: LOS: 5 SUBJECTIVE Patient Summary: Patient is an 89-year-old male with past medical history of HTN, DM Type 2, CKD Stage III w ith baseline creatinine 1.7 who was admitted as a transfer from [facility] due t o a mechanical fall [...] Medications Current Facilty-Administered PRN Medications Ordered in [facility] Medication Dose Route Frequency Provider Last Rate [...] placement is recommended. 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 Huerta and the at phone number [phone] Code Status: Full Code Regino Greene MD [...] status. Disposition: Plan to discharge Monday, to Jail Facility, once medically stable a nd cleared [...] lab follow-up and treatment per hospitalist and training and development director. *Blood pressure: hypotensive; See VS for BP trending. 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 Current Weight: 63.5 kg (140 lb) Admit Weight: 63.5 kg (140 lb) Biochemical Data, Medical Test, and Procedures Recent Labs 12/25/19 0425 12/25/19 0422 NA 134* -- K 5.1* -- GLU [...] Dr. Huerta and the at phone number [phone] Code Status: Full Code Regino Greene MD [...] saturated with serous drainage, blisters under tape. Eric pierre ap plied by me. Moderate edema to [...] not changed. After a curbside discussion with nephrolo gy, decided on holding off the IV hydration [...] any conversation with family members today. Inpatient automotive consultant. Code Status: Full Code Regino Greene MD [...] sodium chloride 0.9% 100 mL/hr at 12/22/19 2820 OBJECTIVE Vital Signs: Vitals with Comments 12/22/2019 [...] Code Regino Greene MD 12/22/2019 10:00 PM onGallito Brenner RN - 12/22/2019 5:35 PM PDTEnd of shift chart check completeElectronica lly signed by Miya Wilson RN at 12/22/2019 5:35 PM PDTBerKetan akers PT - 12/22/2019 1:14 PM PDTFormatting of this note might be different from the origi nal. 12/22/19 1314 PT Visit Summary PT Visit Type Missed Visit (treatment on hold) Next Visit Information 12/21; PT eval PT Visit Summary Pt's H&H continuing to decrease, now 7.1, 21, will hold until this has res olved Andria Simms RPH - 12/22/2019 12:36 PM PDTClinical Pharmacy [...] appropriate. Andria Alston PharmD 12/22/2019 12:35 PM uis, Sendy Mendez RN - 12/22/2019 8:30 AM PDTPt K+ 5.8 anesthesia aware, order of 5 units regular insulin admini stered at 0825 followed by a full amp. Of D50. IV fluid changed to NS, anesthesia provider i nstilled ART line in pre op. 0845 I stat re ran K+ 4.7 documented in this encounter H&P Notes Lamont Hernandez MD - 12/29/2019 9:00 AM PDT PRE-ENDOSCOPY HISTORY AND PRE-SEDATION ASSESSMENT PATIENT NAME: Andres Guzmán : 1930 TODAY'S DATE: 12/29/2019 PLANNED PROCEDURE: endoscopy PERTINENT HISTORY/INDICATION FOR PROCEDURE: Andres Guzmán is a 89 y.o. male who is undergoing endoscopy for GI bleed with melena. PAST HISTORY: Past Medical History: Diagnosis Date ATN (acute tubular necrosis) (HCC) 12/27/2019 Atrial fibrillation (HCC) chronic Cerebrovascular accident (CVA) (HCC) Congestive heart failure (HCC) CVA (cerebral infarction) hx. of Diabetes mellitus (HCC) GERD (gastroesophageal reflux disease) GI bleed Hypertension Joint pain PAST SURGICAL HISTORY Past Surgical History: Procedure Laterality Date CHOLECYSTECTOMY 10/2015 COLONOSCOPY EYE SURGERY eyelid -lt. eye lift FEMUR SURGERY Right 12/22/2019 Procedure: NAILING IM BETSY FEMUR - GAMMA NAIL; Surgeon: Melquiades Baez DO; Location: [facility] MAIN OR OTHER SURGICAL HISTORY CATARACT EXTRACTION - bilateral OTHER SURGICAL HISTORY 2016 PACEMAKER INSERTION TONSILLECTOMY AND ADENOIDECTOMY HOME MEDS: Scheduled Meds: [OCT Hold] acetaminophen 1,000 mg Oral 3 times per day [OCT Hold] albuterol 4 puff Inhalation RT Q6H [OCT Hold] allopurinol 100 mg Oral Daily [OCT Hold] ascorbic acid 500 mg Oral Daily [OCT Hold] budesonide-formoterol 2 puff Inhalation RT BID [OCT Hold] carvedilol 3.125 mg Oral BID WC [OCT Hold] ferrous sulfate 325 mg Oral Every Other Day [OCT Hold] insulin lispro 0-12 Units Subcutaneous TID WC [OCT Hold] piperacillin-tazobactam (ZOSYN) IVPB (custom doses) 3.375 g Intravenous Q12 H [Oct] pravastatin 40 mg Oral Nightly [OCT Hold] terazosin 10 mg Oral Daily with dinner Continuous Infusions: [Oct] dextrose 10% pantoprazole 8 mg/hr (12/29/19 0051) PRN Meds:.[OCT Hold] aluminum & magnesium hydroxide-simethicone, Hypoglycemia Management AND POCT Glucose AND [OCT Hold] dextrose AND [OCT Hold] dextrose 10%, [OCT Hold] d ocusate sodium, [OCT Hold] HYDROmorphone, [OCT Hold] meclizine, [OCT Hold] ondansetron, [OCT Hold] ondansetron, [OCT Hold] senna ALLERGIES Allergies Allergen Reactions Codeine Nausea And Vomiting and Vertigo Morphine And Related Nausea Only Nausea, Slow to recover ASA CLASSIFICATION: Class 3 - A patient with severe systemic disease that limits activity b ut is not incapacitating EXAMINATION: BP 133/71 | Pulse 62 | Temp 36.6 C (97.8 F) (Oral) | Resp 16 | Ht 1.651 m (5' 5") | Wt 63.5 kg (140 lb) | SpO2 96% | BMI 23.30 kg/m General: Alert and oriented Throat: Normal Lungs: Clear Heart: Regular rate and rhythm with out significant murmur Abdomen: flat, normal bowel sounds. Soft, nontender 1. Available medical records have been reviewed. 2. Medication list reviewed. IMPRESSION: . Patient appropriate for procedure. PLAN: 1. Proceed with procedure as stated above with moderate sedation/analgesia 2. Procedure, indications, risks and alternatives explained to patient/family and they agre ed to proceed and consent was signed. 3. Patient will be reevaluated immediately (1-2 minutes) before sedation administration and approved for the plan as stated above. Electronically Signed by: Lamont Hernandez MD 12/29/2019 [facility] Portions of this chart may have been created with Vaybee recognition software. Occasi onal wrong-word or sound-alike substitutions may have occurred due to the inherent castañeda itations of voice recognition software. Please read the chart carefully and recognize, using context, where these substitutions have occurred Julián Urbina MD - 12/21/2019 7:38 PM PDTFormatting of this note m ight be different from the original. [facility] Service: Hospitalist History and Physical Date of Admission: Dec 21 2019 [facility] Reason for Admission: Right comminuted intertrochanteric fracture of the hip CHIEF COMPLAINT: Mechanical fall tripped over side curb landed on the right hip area right hip pain today HISTORY OF PRESENT ILLNESS The patient is a 89 y.o. male Transfer from [facility] after fall with right hip fracture with multiple comor bidities being on Eliquis as well requested for higher level of care to transfer to [facility] h orthopedic 89 years old gentleman fall at this morning mechanical fall tripped on the curb and result ed in right hip pain [facility] visited x-ray found to have a right comminuted intertr ochanteric fracture no loss of consciousness He has a history of chronic atrial fibrillation, on Eliquis last dose was this a.m. 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, pacemak er , chronic kidney disease stage III/IV creatinine cardiomyopathy, with chronic diastolic heart failure with preserved EF, hypertension, hyper lipidemia, type II diabetes, and cirrhosis Per ER work-up Creatinine 2.6 bun 85 Chest Xray no acute pathology stable CBC and LFT Orthopedic on-call was consulted from [facility] and requested to transfer for higher level of care At [facility] with multiple comorbidities REVIEW OF SYSTEMS 12 point ROS reviewed and negative other than above Past Medical History: Diagnosis Date Atrial fibrillation (HCC) chronic Cerebrovascular accident (CVA) (HCC) Congestive heart failure (HCC) CVA (cerebral infarction) hx. of Diabetes mellitus (HCC) GERD (gastroesophageal reflux disease) GI bleed Hypertension Joint pain Past Surgical History: Procedure Laterality Date CHOLECYSTECTOMY 10/2015 COLONOSCOPY EYE SURGERY eyelid -lt. eye lift OTHER SURGICAL HISTORY CATARACT EXTRACTION - bilateral OTHER SURGICAL HISTORY 2016 PACEMAKER INSERTION TONSILLECTOMY AND ADENOIDECTOMY Allergies Allergen Reactions Codeine Nausea And Vomiting and Vertigo Morphine And Related Nausea Only Nausea, Slow to recover No medications prior to admission. 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 Conversive and appropriate to place and person. HEENT: Normocephalic, atraumatic, pupils EOMI, PERRLA. Nose: no septal deviation or dischar ge. Ears: normal size, location, and contour. Throat: no exudates, dry. NECK: is supple, full ROM, nontender. LUNGS: clear to auscultation bilaterally with no wheezing, No rales or rhonchi audible. HEART: S1 irregulare rhythm without murmurs, gallops or rubs. ABDOMEN: Bowel sound is normoactive, abdomen is soft, non-tender non-distended ,no mass pal pable. EXTREMITIES: Right hip range of motion limited by externally rotated pattern with recent trauma Right lower extremity weakness NEURO: Right facial droop baseline Right-sided weakness Sensory grossly intact PSYCH: Alert, awake and Oriented x3. SKIN noted to have skin tear right volar aspect of the forearm no active bleeding no infect ed. 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 after midnight Marlene last dose was this a.m. KATI on Chronic kidney disease stage III/IV Gentle hydration today monitor trend avoid n ephrotoxin hold diurectics For now Hypertension beta-gala on board and terazosin monitor blood pressure Cardiomyopathy s/p pacemaker chronic diastolic CHF with preserved ejection fraction not in acute decompensation on beta-gala Hold Lasix for now as per stated reason Chronic A. fib [id number]- VASC score is 6- Hold Eliquis for now last dose this a.m. with procedure anticipation S/p Pacemaker was was replaced by Dr. Thompson 2018, Hyperlipidemia on statin LFT seems to be baseline with history of cirrhosis monitor Late effect of CVA right leg weakness and right facial droop patient also on Eliquis and st atin and aspirin Both aspirin and Eliquis well holding at that time Diabetes type 2 SSI for now on board monitor blood sugar adjust as needed Counseling medication all his medication will review and order appropriately for this beckie xt of acute admission Hospital records reviewed. Labs and radiologic studies and reports reviewed. Discussed find ings with patient and patient family and also explaining what will be the care plan Old records reviewed on EMR. Dictation software, [employer] sent[employer], used which may contain error for similar sounding words even af ter review. Personal communication requested for any clarification. Disposition: inpatient Code Status: FULL CODE Primary Care Physician: MD Julián Nobles MD 12/21/2019 documented in thi s encounter Consult Notes Lamont Hernandez MD - 12/29/2019 10:26 AM PDT Gastroenterology Consultation: [facility] 12/29/2019 Andres Jones Ramirez 89 y.o. [id number] History of present illness: Gastroenterology consultation is requested for evaluation of GI bleeding with melena. This is an 89-year-old male with multiple medical problems and a history of hypertension, d iabetes, CKD stage III who was transferred from [facility] due to a fall and he sustain ed a right hip fracture. He underwent surgery without any complications. He was noted to h ave a drop in hemoglobin with multiple episodes of melena within the past 24 to 48 hours. H e had been on Eliquis however this was stopped 2 days ago. He was given packed RBC transfus ions and his H&H improved appropriately. He remained hemodynamically stable. Past medical history: Past Medical History: Diagnosis Date ATN (acute tubular necrosis) (HCC) 12/27/2019 Atrial fibrillation (HCC) chronic Cerebrovascular accident (CVA) (HCC) Congestive heart failure (HCC) CVA (cerebral infarction) hx. of Diabetes mellitus (HCC) GERD (gastroesophageal reflux disease) GI bleed Hypertension Joint pain Past surgical history: Past Surgical History: Procedure Laterality Date CHOLECYSTECTOMY 10/2015 COLONOSCOPY EYE SURGERY eyelid -lt. eye lift FEMUR SURGERY Right 12/22/2019 Procedure: NAILING IM BETSY FEMUR - GAMMA NAIL; Surgeon: Melquiades Baez DO; Location: [facility] [place] MAIN OR OTHER SURGICAL HISTORY CATARACT EXTRACTION - bilateral OTHER SURGICAL HISTORY 2015 PACEMAKER INSERTION TONSILLECTOMY AND ADENOIDECTOMY Social History Social History Socioeconomic History Marital status: Spouse name: Not on file Number of children: Not on file Years of education: Not on file Highest education level: Not on file Occupational History Not on file Social Needs Financial resource strain: Not on file Food insecurity: Worry: Not on file Inability: Not on file Transportation needs: Medical: Not on file Non-medical: Not on file Tobacco Use Smoking status: Former Smoker Packs/day: 0.75 Years: 35.00 Pack years: 26.25 Last attempt to quit: 1981 Years since quittin.3 Smokeless tobacco: Never Used Substance and Sexual Activity Alcohol use: Not Currently 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 Drug use: Never Comment: Drug use: No Sexual activity: Not on file Lifestyle Physical activity: Days per week: Not on file Minutes per session: Not on file Stress: Not on file Relationships Social connections: Talks on phone: Not on file Gets together: Not on file Attends islam service: Not on file Active member of club or organization: Not on file Attends meetings of clubs or organizations: Not on file Relationship status: Not on file Intimate partner violence: Fear of current or ex partner: Not on file Emotionally abused: Not on file Physically abused: Not on file Forced sexual activity: Not on file Other Topics Concern Not on file Social History Narrative Social History Marital status: Number of children: 3 Occupational History retired Social History Main Topics Smoking status: Former Smoker ~ Packs/day: 0.75 Years: 35.00 Types: Cigarettes, Pipe Quit date: 11/28/1981 Smokeless tobacco: Never Used Alcohol use: No Comment: 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 ~ Drug use: No Sexual activity: Not on file Patient has lived in the area since 1955 Family History: Family History Problem Relation Age of Onset Heart disease Father Cancer Sister Heart disease Brother Hypertension Brother Medications: [Oct] acetaminophen 1,000 mg Oral 3 times per day [Oct] albuterol 4 puff Inhalation RT Q6H [Oct] allopurinol 100 mg Oral Daily [Oct] ascorbic acid 500 mg Oral Daily [Oct] budesonide-formoterol 2 puff Inhalation RT BID [Oct] carvedilol 3.125 mg Oral BID WC [Oct] ferrous sulfate 325 mg Oral Every Other Day [Oct] insulin lispro 0-12 Units Subcutaneous TID WC [Oct] piperacillin-tazobactam (ZOSYN) IVPB (custom doses) 3.375 g Intravenous Q12 H [Oct] pravastatin 40 mg Oral Nightly [Oct] terazosin 10 mg Oral Daily with dinner Outpatient Medications allopurinol (ZYLOPRIM) 100 mg tablet Take 1 tablet by mouth daily. apixaban (ELIQUIS) 2.5 mg tablet (Taking) Take 1 tablet by mouth 2 times daily. For stroke prevention ascorbic acid (VITAMIN C) 500 MG tablet (Taking) Take 500 mg by mouth daily. carvedilol (COREG) 25 mg tablet (Taking) Take 1 tablet by mouth 2 (two) times daily with m eals. ferrous sulfate 325 mg tablet (Taking) Take 65 mg of iron by mouth every other day. furosemide (LASIX) 40 mg tablet (Taking) Take 40 mg by mouth 6 days per week. meclizine (ANTIVERT) 25 mg tablet (Taking) Take 1 tablet by mouth 3 (three) times daily as needed. metFORMIN (GLUCOPHAGE) 500 mg tablet (Taking) Take 500 mg by mouth 3 (three) times daily. pravastatin (PRAVACHOL) 80 MG tablet (Taking) Take 40 mg by mouth nightly. terazosin (HYTRIN) 10 MG capsule (Taking) Take 10 mg by mouth daily with dinner. Allergies: Allergies Allergen Reactions Codeine Nausea And Vomiting and Vertigo Morphine And Related Nausea Only Nausea, Slow to recover ROS: : A 12 point ROS was performed and was unremarkable other than what is listed in the H PI Physical examination: BP 128/59 | Pulse 62 | Temp 36.4 C (97.6 F) | Resp 18 | Ht 1. 651 m (5' 5") | Wt 63.5 kg (140 lb) | SpO2 98% | BMI 23.30 kg/m General appearance: Frail elderly man lying flat [...] Psych: Pleasant demeanor. Neurologic: Alert. No asterixis. Laboratory: Recent Results (from the past 24 hour(s)) [...] Hematocrit 27.2 (L) 39.0 - 50.0 % Xray: CT-scan of the abdomen CT-scan of abdomen and pelvis ultrasound Assessment: GI bleeding with melena due to duodenal ulcers with visible vessel. Upper endoscopy today revealed severe esophagitis however no evidence of ulcers or other bl eeding source in the stomach. In the duodenum there were 2 ulcers one being clean based and the other one with a oozing visible vessel. Epinephrine was injected and the ulcer with vi sible vessel was treated with gold probe thermal coagulation with successful hemostasis. Recommendations: Continue IV Protonix 8 mg an hour N.p.o. today then advance tomorrow to clear liquids only if H&H is stable Hold Eliquis and all NSAIDs including aspirin Serial H&H every 6 hours for 24 hours Transfuse as clinically indicated for hemoglobin below 8.0 Carafate slurry 1 g by mouth 4 times daily We will follow with you. Please call if any questions. Lamont Hernandez MD 12/29/19 10:27 AM Portions of this chart may have been created with [employer] voice recognition software. Occasi onal wrong-word or sound-alike substitutions may have occurred due to the inherent castañeda itations of voice recognition software. Please read the chart carefully and recognize, using context, where these substitutions have occurred Hayley Peres MD - 12/25/2019 8:46 PM PDT Consulted by [facility] Problem List: Patient Active Problem List [...] stage 3 chronic kidney disease CC: KATI I was asked by the team to see Mr. Guzmán in consult today. As the admitting/consultin g team is familiar with his case, I will not state his past history in detail. Briefly, he i s a 89 y.o. male patient with history as delineated in the Past Medical & Surgical History s ections. He was admitted with R hip fracture I was called in to evaluate him for KATI (acute kidney injury, acute renal failure). . Background: This is an 89-year-old male with multiple medical problems including diabetes, chronic kidn ey disease stage III with baseline creatinine 1.7 admitted to [facility] on December 20 after a mechanical fall that led to right hip fracture. The patient was transferr ed from [facility] for surgery. The patient did have ORIF during this hospit alization. On admission the patient creatinine was 2.8 on December 21December fourth was 2.7 with EGFR 22 on December 23 was 3.7 with EGFR 16 and today was 4.4 with EGFR 13. The patient for the past few days n oted to have multiple episodes of significantly low blood pressure. The patient was given I V fluids however despite that his creatinine continue to rise. However the patient was able to maintain reasonable urine output. The patient used to see Tristan Gage at the nephrology clinic in [place]. The patien t is poor historian and does not recall seeing a training and development director in the past. He also not awar e of any kidney problems. History & ROS obtained from : pt. Primary team, chart review. He denies any history of prol onged exposure to NSAIDs or recent exposure to nephrotoxins. No recent IV dye exposure. He d enies any recurrent nephrolithiasis or pyelonephritis. He also denies any history of urinary retention, gross hematuria, dysuria, or foamy urine. There is no family history of renal ge netic diseases such as PKD. His baseline Creatinine is 1.7. He says that he feels 'fair ' today. No history of blurred vision, tinnitus, headache, fev er, chills, or cough. No nausea, vomiting, abdominal pain, diarrhea, melena, or hematochezi a. No chest pain, palpitation, dizziness, loss of consciousness, orthopnea, paroxysmal noct urnal dyspnea, or leg edema. No dysuria, incontinence, or symptoms of UTI. No history of fr equency, nocturia, weak urinary stream, hesitancy, intermittence, incomplete emptying or urg ency. He had 1 nightly nocturia. The following portions of the patient's history were reviewed and updated as appropriate: a llergies, current medications, past medical history, past social history, past surgical hist ory, family history and problem list. I also reviewed with his preadmission records. ROS: As in History of Present Illness above & Assessment below. All other systems were revi ewed and were otherwise negative. acetaminophen 1,000 mg [...] Daily with dinner dextrose 10% P.E. BP 121/58 | Pulse 60 | Temp 36.9 C (98.5 F) (Oral) | Resp 16 | Ht 1.651 m (5' 5") | Wt 63.5 kg (140 lb) | SpO2 91% | BMI 23.30 kg/m General appearance: Pleasant, not in acute distress. Neck: Supple without tracheal deviation or jugular venous distension. Head and ENT: Head is atraumatic. The oropharynx is without erythema or thrush. Eyes: Anicteric. The extraocular muscle movements are normal. Lungs: Good A/E bilaterally. There are no wheezes. Heart: Regular rate and rhythm Abdominal exam: Soft and nontender with normal bowel sounds. Musculoskeletal: No costovertebral angle tenderness bilaterally. Extremities: Warm to touch with no leg edema. There is no cyanosis. Skin: There are no rashes, petechiae, or ecchymosis. Neurological: Awake, alert, and oriented to time, place, and person. Psychiatric: The patient s behavior is normal. Labs: Lab Results Component Value Date CO2 21 (L) 12/24/2019 CO2 22 (L) 12/23/2019 CO2 23 12/22/2019 CO2 23 04/01/2019 CO2 25 02/04/2019 Lab Results Component Value Date ALBUMIN 3.5 04/01/2019 ALBUMIN 2.8 (L) 07/28/2017 ALBUMIN 3.1 (L) 07/27/2017 Lab Results Component Value Date HGB 9.0 (L) 12/24/2019 HGB 8.8 (L) 12/23/2019 HGB 9.1 (L) 12/22/2019 FERREX 23 07/27/2017 IRONSAT 8 (L) 07/27/2017 Lab Results Component Value Date CALCIUM 8.8 12/24/2019 CALCIUM 8.3 (L) 12/23/2019 CALCIUM 9.0 12/22/2019 Lab Results Component Value Date BUN 90 (H) 12/24/2019 BUN 65 (H) 12/23/2019 BUN 90 (H) 12/22/2019 BUN 41 (A) 04/01/2019 BUN 35 (H) 02/04/2019 CREA 3.7 (H) 12/24/2019 CREA 2.70 (H) 12/23/2019 CREA 2.8 (H) 12/22/2019 LABCREA 1.68 (A) 04/01/2019 LABCREA 1.75 (H) 02/04/2019 LABCREA 1.66 (A) 01/07/2019 LABCREA 1.2 07/29/2017 LABCREA 1.3 07/28/2017 EGFR 16 (L) 12/24/2019 EGFR 22 (L) 12/23/2019 EGFR 22 (L) 12/22/2019 EGFR 39 (A) 04/01/2019 EGFR 37 (L) 02/04/2019 Lab Results Component Value Date CREA 3.7 (H) 12/24/2019 NA 136 12/24/2019 CL 105 12/24/2019 BUN 90 (H) 12/24/2019 K 5.2 (H) 12/24/2019 ALBUMIN 3.5 04/01/2019 I/O last 3 completed shifts: In: 1402 [P.O.:1040; I.V.:362] Out: 600 [Urine:600] No intake/output data recorded. Assessment/Recommendations: Mr. Guzmán is a 89 y.o. male patient with stage III KATI (acute kidney injury), that is i n the setting of hypotension, anemia ( drop HB from 9 to 7 ) on CKD III. KATI ATN Nonoliguric No emergent indication for renal placement therapy Optimize blood pressure to keep mean arterial pressure greater than 70 Renal ultrasound reviewed noted to have small kidneys and a very thin cortex consistent wit h advanced kidney disease Avoid nephrotoxins Renal diet with 2 g potassium restricted diet Strict I's and O's Hyperkalemia I will order bicarb Posted potassium 2 g a day Anemia keep hemoglobin greater than 7 Please rule out ongoing GI bleed Metabolic acidosis I will order bicarb amps Hypoalbuminemia I will order albumin boluses to boost his blood pressure Bone mineral disease The patient should be on phosphorus restricted diet I will check PTH I discussed with the primary team the case at the time of this encounter. I spent 70 minutes today greater than 50% was in counseling or or coordinating care. Thank you for the opportunity to see this patient in consult today. Please do not hesitate to call me at any time with questions or concerns. Hayley Tapia MD, FACP Denise Talavera RN - 12/25/2019 10:53 AM PDTAssociated Order(s): IP CONSULT TO WOUND OSTOMY NURSE [facility] Service: Wound Care Consult Note Hospital Day: 4 SUBJECTIVE Patient Summary: Wound care consulted for kenisha-incision blisters and tape adhesion in juries. OBJECTIVE 12/25/19 1050 Visit Information Visit Type Initial wound assessment Wound 12/25/19 1050 Other (comment) Right hip blister(s);skin tear Placement Date/Time: 12/25/19 1050 Present on Hospital Admission: No Primary Wound Type: Other (comment) Side: Right Location: hip Wound Subtype: blister(s);skin tear Base pink;reddened Wound Base Comment ruptured blisters and tape adhesion injuries. Drainage Characteristics/Odor serosanguineous Drainage Amount small Wound Cleaning cleansed with;sterile normal saline Dressing petroleum-based dressing (transfer foam) Wound Image Visit Summary Discipline Providing Treatment WOCN Next Wound/Ostomy Visit Date 01/01/20 PROBLEM LIST Patient Active Problem List Diagnosis [...] superimposed on stage 3 chronic kidney disease ASSESSMENT & PLAN Possible skin reaction to original surgical dressing-per RN patient developed serous-filled blisters under the tegaderm dressing. RN replaced tegaderm and TELFA dressing with a surgi prashant Aquacel dressing. Some blisters ruptured, saturating the Aquacel dressing and unfortuna tely when this removed caused medical-adhesive skin damage. Cleansed with saline, petrolatum gauze and covered with transfer foam. Change twice weekly . Patient tolerated well. Thank you for allowing me to participate in the care of this patient. I will continue to follow with you. Denise Lebron RN, CWON 10:53 Wing Mckayla Elizabeth MD - 12/24/2019 11:33 AM PDT [facility] Service: Physicial Medicine & Rehab Consultation note Date of Admission: 12/21/2019 Requesting Physician: Dr. Baez, Orthopedic Surgery Reason for Referral: Consideration for IPR History Obtained From: patient and chart review CHIEF COMPLAINT: Right hip fracture with ORIF HISTORY OF PRESENT ILLNESS The patient is an 89 years old gentleman fall at this morning mechanical fall tripped on the curb and resulted in right hip pain [facility] visited x-ray found to have a right comminuted intertrochanteric fracture no loss of consciousness He has a history of chronic atrial fibrillation, on Eliquis last dose was this a.m. 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, pacem patsy , chronic kidney disease stage III/IV creatinine cardiomyopathy, with chronic diastolic heart failure with preserved EF, hypertension, hyper lipidemia, type II diabetes, and cirrhosis He was transferred to [facility], and is now s/p ORIF with Dr. Baez. He is permitted WBAT. Consultation is being requested to determine his IPR needs and potential. The patient at this point has significant anemia. He is with fairly low BP and is symptoma tic. Past Medical History Past Medical History: Diagnosis Date Atrial fibrillation (HCC) chronic Cerebrovascular accident (CVA) (HCC) Congestive heart failure (HCC) CVA (cerebral infarction) hx. of Diabetes mellitus (HCC) GERD (gastroesophageal reflux disease) GI bleed Hypertension Joint pain Past Surgical History Past Surgical History: Procedure Laterality Date CHOLECYSTECTOMY 10/2015 COLONOSCOPY EYE SURGERY eyelid -lt. eye lift FEMUR SURGERY Right 12/22/2019 Procedure: NAILING IM BETSY FEMUR - GAMMA NAIL; Surgeon: Melquiades Baez DO; Location: [facility] [place] MAIN OR OTHER SURGICAL HISTORY CATARACT EXTRACTION - bilateral OTHER SURGICAL HISTORY 2016 PACEMAKER INSERTION TONSILLECTOMY AND ADENOIDECTOMY Social History He lives at home with spouse, no steps in. Allergies Allergies Allergen Reactions Codeine Nausea And Vomiting and Vertigo Morphine And Related Nausea Only Nausea, Slow to recover PHYSICAL EXAM Vital Signs: BP (!) 87/51 | Pulse 60 | Temp 36.4 C (97.5 F) (Axillary) | Resp 16 | Ht 1.651 m (5 ' 5") | Wt 63.5 kg (140 lb) | SpO2 90% | BMI 23.30 kg/m HEENT: NC/AT; PERRLA; EOMI; face is symmetrical. Neck: Supple; FROM in all planes. Lung: Clear to A&P in all lung vincent. Cardiac: RRR, no murmurs or rubs. Abdomen: NABS, soft and nontender. : male Rectal: Deferred. Ext: incision intact. Negative for pedal edema Neuro: easily aroused from sleep. Speaking adequately. CN II-XII grossly intact. Strength is about 4/5 with low endurance. PROBLEM LIST Active Problems: Permanent atrial fibrillation Chronic diastolic heart failure Closed comminuted intertrochanteric fracture of right femur with routine healing 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) Acute renal failure superimposed on stage 3 chronic kidney disease ASSESSMENT & PLAN The patient is an 89 year-old male s/p mechanical fall. He is with right hip fracture. He is s/p ORIF. Patient is complicated by anemia and low BP. He has pre-syncopal episodes wi th therapy. Patient at this point may need transfusion. There are no IPR beds anticipated till early next week. SW should consist SNF placement closer to home ([place]). Code Status: Full Code Wing Marie Reed MD 12/24/2019 Melquiades Gill, DO - 12/22/2019 7:50 AM PDTAssociated Order(s): PROVIDER TO PROVIDER CONSULT [facility] Service: Orthopedic Surgery Initial Consult Note Date of Admission: 12/21/2019 Reason for Consultation: Right hip fracture Requesting Physician: Hospitalist service, History Obtained From: Patient CHIEF COMPLAINT: Right hip pain HISTORY OF PRESENT ILLNESS The patient is a 89 y.o. male with significant past medical history who presents after a gr ound-level fall. He fell yesterday when he tripped over a curb in his front lawn. He was t aken in by EMS. He was taken to the hospital and found to have a an intertrochanteric hip f racture. He was transferred to [facility] for concerns with other comor bidities. He was admitted by the hospitalist service. He was optimized for surgery. He ne pedro lost consciousness. He did not strike his head. He is on apixaban for atrial fibrillat ion. He took his last dose 24 hours ago. REVIEW OF SYSTEMS Denies any fevers, chills, nausea, vomiting, diarrhea, constipation, chest pain, or shortne ss of breath. Otherwise negative except as mentioned in the history of present illness. Past Medical History: Diagnosis Date Atrial fibrillation (HCC) chronic Cerebrovascular accident (CVA) (HCC) Congestive heart failure (HCC) CVA (cerebral infarction) hx. of Diabetes mellitus (HCC) GERD (gastroesophageal reflux disease) GI bleed Hypertension Joint pain Past Surgical History: Procedure Laterality Date CHOLECYSTECTOMY 10/2015 COLONOSCOPY EYE SURGERY eyelid -lt. eye lift OTHER SURGICAL HISTORY CATARACT EXTRACTION - bilateral OTHER SURGICAL HISTORY 2015 PACEMAKER INSERTION TONSILLECTOMY AND ADENOIDECTOMY Allergies Allergen Reactions Codeine Nausea And Vomiting and Vertigo Morphine And Related Nausea Only Nausea, Slow to recover Medications Prior to Admission Medication Sig Dispense Refill allopurinol (ZYLOPRIM) 100 mg tablet Take 1 tablet by mouth daily. 90 tablet 3 apixaban (ELIQUIS) 2.5 mg tablet Take 1 tablet by mouth 2 times daily. For stroke preve ntion 60 tablet 0 ascorbic acid (VITAMIN C) 500 MG tablet Take 500 mg by mouth daily. (Patient taking dif ferently: Take 500 mg by mouth Daily. Takes tablets M,W,F,Sun, only takes 4x per week) carvedilol (COREG) 25 mg tablet Take 1 [...] Take one half tablet by mouth nightly) terazosin (HYTRIN) 10 MG capsule Take 10 mg by mouth daily with dinner. Scheduled Medications [Oct] allopurinol 100 mg Oral Daily [Oct] ascorbic acid 500 mg Oral Daily [Oct] carvedilol 25 mg Oral BID WC [Oct] ferrous sulfate 325 mg Oral Every Other Day [Oct] insulin lispro 0-12 Units Subcutaneous TID WC [Oct] pravastatin 40 mg Oral Nightly [Oct] terazosin 10 mg Oral Daily with dinner Continuous Infusions [Oct] dextrose 10% PRN Medications [Oct] acetaminophen, Hypoglycemia Management AND POCT Glucose AND [Oct] d extrose AND [Oct] dextrose 10%, [Oct] docusate sodium, [Oct] HYDROcodone- acetaminophen, [Oct] HYDROmorphone, [Oct] ondansetron, [Oct] ondansetron, [] senna Family History Problem Relation Age of Onset Heart disease Father Cancer Sister Heart disease Brother Hypertension Brother Social History Occupational History Not on file Tobacco Use Smoking status: Former Smoker Packs/day: 0.75 Years: 35.00 Pack years: 26.25 Last attempt to quit: 1982 Years since quittin.3 Smokeless tobacco: Never Used Substance and Sexual Activity Alcohol use: Not Currently 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 General: Alert, in no apparent distress Head: Normal inspection, no signs of trauma. No facial asymmetry Neck: Normal inspection and ROM, no lymphadenopathy Respiratory: No respiratory distress. Normal chest rise and fall. Abdomen: Non-distended, no signs of peritonitis Skin: Color normal, warm and dry Extremities: RLE: Demonstrates tenderness palpation around the hip. He is holding and externally rotat ed. He has it flexed up. He can flex and extend the toes. He can flex and extend the ankl e. He has sensation intact light touch in all distributions. He has no pain around the kne e or ankle. RADIOGRAPHS Radiology Review: Multiple views from an outside institution demonstrate a right intertrochanteric hip fractu re. The lesser trochanter has been broken off as a separate piece. 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 We did talk about op erative versus nonoperative treatment. We did talk about in-hospital mortality. We talked about 1 year mortality. We talked that for most people there really is little role for nono perative treatment. He did understand this all of his questions were answered. He did not need anything further for me. He did wish to pursue the surgery. He will be taken for a [facility] hip cephalo-medullary nail.The risks and benefits of surgery and expected recovery perio d and outcomes were discussed with the patient. The risk discussed included infection, damag e to nerves and blood vessels, bleeding, continued pain, dissatisfaction, stiffness, fractur e, potential need for revision surgery, DVT, pulmonary embolism, stroke, myocardial infarcti on and . Alternatives to surgeries were also discussed with the patient. All of the pat ients questions were answered and informed consent was obtained. Code Status: Full Code Primary Care Physician: MD Melquiades Nobles DO 12/22/2019 7:50 AM documented in this encounter Miscellaneous Notes SNF Transfer - Regino Greene MD - 01/01/2020 10:59 AM PDTFormatting of this note might b e different from the original. LONGTERM FACILITY TRANSFER ORDERS Patient Name: Andres Guzmán Patient : [id number] Gender: male Date of Admission: 12/21/2019 Date of Discharge: 01/01/2020 Admitting Provider: Julián Messina MD Discharging Provider: Regino Greene MD Consultants: Treatment Team: Melquiades Baez DO; Hayley Tapia MD; Lamont Hernandez MD PCP: Barbara Gilman CODE STATUS: Full Code Admitting Diagnosis: Principal Problem: Acute GI bleeding Active Problems: [...] pneumonia Acute post-hemorrhagic anemia Bleeding duodenal ulcer Allergies Allergen Reactions Adhesive & Tape Other (See Comments) Blistering Codeine Nausea And Vomiting and Vertigo Morphine And Related Nausea Only Nausea, Slow to recover Silicone Rash Blistering There is no immunization history on file for this patient. Type: [x] Continue current diet of: Diet general; Effective Now Respiratory: [] CPAP at home setting when asleep [] Incentive Spirometer QID and PRN while awake. [] Oxygen: Lpm NC Bladder: [] Lee catheter managment per nursing protocol Other Lines, Tubes and Drains: (to be managed by nursing protocol) [] PICC Line care per protocol Activity/Therapies: [x] PT Evaluation & Treat [] Non Weight Bearing (specify limb(s)): [x] OT Evaluation & Treat [] COMMUNICATIONS ASSOCIATE Evaluation Treat Wound/Skin Care: [] Follow current recommendations of the wound team for treatment. [] Wound Vac management per nursing protocol. Labs/Imaging: [] PT/INR: Frequency per SNF provider Goal INR: [] Fingerstick glucose check before meals and bedtime and PRN [] Labs: Follow up: Melquiades Baez DO [address] [facility] [phone] In 2 weeks For post op care Barbara Gilman MD [address] [place] [id number] In 1 week I have advised this patient that he/she not use tobacco products. TB screening: Upon admission the 1st and 2nd step TST will be done as per protocol if Resid ent has no history of TB or a past positive TST. Pharmacist may substitute equivalent Rx based on facility or insurance formulary as needed unless otherwise specified by physician. Please write "GEOVANY" (Dispense as written) if a medi cation should not be substituted. Please make sure to write a diagnosis for ALL medications continued on transfer. Antibioti cs require a stop date. If medications do not contain a SIG, make sure doses/routes and nas edule is included. Medication Orders New Medications Details Order Next Dose Due albuterol 90 mcg/puff inhaler Inhale 4 puffs into the lungs every 6 hours for 30 days. By: Regino Greene MD Quant: 1 Inhaler budesonide-formoterol 160-4.5 mcg/puff inhaler Inhale 2 puffs into the lungs Twice Daily for 30 days. aka: SYMBICORT By: Regino Greene MD Quant: 6 g insulin lispro 100 units/mL injection (vial) Inject 0-12 Units under the skin 3 times daily (with meals). aka: humaLOG By: Regino Greene MD Quant: 10 mL pantoprazole 40 mg tablet Take 1 tablet by mouth 2 times daily (before meals) for 30 days. aka: PROTONIX By: Regino Greene MD Quant: 60 tablet sucralfate 1 g tablet Take 1 tablet by mouth 4 times daily (before meals and nightly) for 30 days. aka: CARAFATE By: Regino Greene MD Quant: 120 tablet Changed Medications Details Order Next Dose Due ascorbic acid 500 mg tablet Take 500 mg by mouth daily. What changed: additional instructions aka: VITAMIN C By: Provider Unknown Conversion Transaction carvedilol 3.125 mg tablet Take 1 tablet by mouth 2 times daily (with breakfast & dinner) for 30 days. What changed: medication strength how much to take when to take this aka: COREG By: Regino Greene MD Quant: 60 tablet meclizine 25 mg tablet Take 1 tablet by mouth 3 (three) times daily as needed. What changed: reasons to take this aka: ANTIVERT By: Enoch Thompson MD Quant: 90 tablet pravastatin 80 MG tablet Take 40 mg by mouth nightly. What changed: additional instructions aka: PRAVACHOL By: Provider Unknown Conversion Transaction Unchanged Medications Details Order Next Dose Due allopurinol 100 mg tablet Take 1 tablet by mouth daily. aka: ZYLOPRIM By: ENEDINA Hernandez Quant: 90 tablet ferrous sulfate 325 mg tablet Take 65 mg of iron by mouth every other day. By: Provider Unknown Conversion Transaction terazosin 10 MG capsule Take 10 mg by mouth daily with dinner. aka: HYTRIN By: Provider Unknown Conversion Transaction Discontinued Medications apixaban 2.5 mg tablet aka: ELIQUIS furosemide 40 mg tablet aka: LASIX metFORMIN 500 mg tablet aka: GLUCOPHAGE I, Regino Greene MD, certify that post hospital usp care is medically necessa ry on a continuing basis for any of the conditions for which he/she received care during thi s hospitalization. Additional Orders/Instructions: Physician's signature: 01/01/2020 10:[address] [facility] USE ONLY: [] Admitting orders verbally reviewed with Admitting Physician, modified where appropriate, and approved. Verbal Order from Date: Time: _ RN name: RN signature: [] Admitting orders reviewed, modified where appropriate, and approved. Physician's signature: Date: Time: lan of Care - Savana Alfaro RN - 01/01/2020 6:33 AM PDT Problem: Adult Inpatient Plan of Care Goal: Plan of Care Review Outcome: Ongoing, progressing Pt's VSS and remaining afebrile this shift. Problem: Fall Injury Risk Goal: Absence of Fall and Fall-Related Injury Outcome: Ongoing, progressing Non-slip socks on, room free of clutter, and tolerating ambulation 2 max assist with flatf orm. Call light within reach, bed in lowest position, and no injuries reported. Problem: Skin Injury Risk Increased Goal: Skin Health and Integrity Outcome: Ongoing, progressing No skin issues at this time and all dressings intact. Problem: Pain Acute Goal: Optimal Pain Control Outcome: Ongoing, progressing Pain under control with current PRN pain medications. Problem: Nausea and Vomiting Goal: Fluid and Electrolyte Balance Outcome: Ongoing, progressing Pt tolerating diet without any nausea or vomiting. Savana Rodgers RN lan of Ja Parker RN - 12/31/2019 3:54 PM PDTCare Management Follow-Up Readmission Risk: HIGH Current Discharge Plan Anticipated Discharge Disposition: usp facility Expected DC Date: 12/31/2019 Barriers to Discharge: placement Steps Taken Toward Discharge: Attended morning rounds, called [facility] and provided upd ate of Pt Next Steps: d/c to [facility] Community Support Services Current Outpt/Agency/Support Groups: none Community Agency Name: none Other Resources: Discharge Transportation Transportation Needs: agency transportation Notes: Pt on course to discharge to [facility] tomorrow. Idalia brown d with [facility] team and they are accepting Pt tomorrow if Pt is medically ready. Cm will follow for d/c needs that arise. Electronically signed: Ja Marcus RN 12/31/2019 3:54 PM lan of Andrez Perry PTA - 12/31/2019 2:04 PM PDT Physical Therapy Treatment Note Recommended discharge disposition: usp facility Post discharge physical therapy recommendation: Equipment Recommendations: Barriers to community-based discharge Physical Impairment Recommended Frequency: 5 times/wk for 7 days with reassessment due by 01/06/20 Summary: pt supine in bed willing to participate w/ therex Cognitive Assessment Orientation: oriented x 4 Exercises Bed exercises: ankle pumps, quad sets, glut sets, hip abduction/adduction, heel slides Goals Reflects last filed data and may be from multiple contributors. All Bed Mobility Goal Most Recent Value LTG Status continued at 12/30/2019 0805 LTG [place] Level supervised at 12/30/2019 08 LTG Assistive Device none at 12/30/2019 0805 All Transfers Goal Most Recent Value LTG Status new at 12/30/2019804 LTG [place] Level minimum assist (75% patient effort) at 12/30/2019804 LTG Assistive Device 2 wheeled walker (FWW) at 12/30/2019804 Gait Goal Most Recent Value LTG Status new at 12/30/2019804 LTG [place] Level minimum assist (75% patient effort) at 12/30/2019804 LTG Assistive Device 2 wheeled walker (FWW) at 12/30/2019804 LTG Distance (feet) 50ft at 12/30/2019 08 PT Time Calculation Individual Start Time: 1307 Individual Stop Time: 1320 Individual Total Time: 13 PT Total Treatment Time: 13 lan of [facility] - Liz Cabral RN - 12/31/2019 8:00 AM PDT Problem: Fall Injury Risk Goal: Absence of Fall and Fall-Related Injury Outcome: Ongoing, progressing Pt ambulates with staff and PT, able to make needs known and uses call light appropriately lan of Torie Montes De Oca RN - 12/31/2019 3:02 AM PDTPatient resting in bed comfortably. States clive diness for planned discharge later today. No scheduled time for discharge as of yet. R hip d ressing requiring changed x1 with oozing serosanguinous drainage. Pain managed well with rou ching medications and repositioning, no PRN medications indicated throughout the night. Neuro vascular status intact and stable per baseline throughout the night. VSS. Afebrile. Repositi oned Q2hr as allowed with no new skin issues noted. No acute events overnight. Shift chart r sha complete. la n of Torie Way RN - 12/30/2019 10:03 PM PDT Problem: Adult Inpatient Plan of Care Goal: Plan of Care Review Outcome: Ongoing, progressing Goal: Readiness for Transition of Care Outcome: Ongoing, progressing Plan of care reviewed with patient who verbalizes agreement with no voiced concerns. Aware of plan for discharge to [facility] tomorrow and has no concerns regarding disc harge. Problem: Fall Injury Risk Goal: Absence of Fall and Fall-Related Injury Outcome: Ongoing, progressing Low bed. Bed rails x2. Call light and personal items in reach. Nonskid socks. Bed alarm ac tivated and audible. 2PA with transfers. Patient remains free of fall and injuries. Complian t with call light use. Problem: Skin Injury Risk Increased Goal: Skin Health and Integrity Outcome: Ongoing, progressing Repositioned Q2hr and PRN to promote skin integrity. Monitor dressings to R elbow, R heel, sacrum and R hip. No new skin issues noted. Problem: Oral Intake Inadequate Goal: Improved Oral Intake Description Pt will consume at least 50% of meals. Outcome: Ongoing, progressing Advanced to general diet and tolerating diet well without difficulty. No complaints of [place] or abdominal pain. Will continue to encourage oral fluid hydration. Problem: Bleeding (Hip Fracture) Goal: Absence of Bleeding Outcome: Ongoing, progressing Continues to have moderate amount of serosanguinous drainage to R hip dressing. Current op tilock holding drainage well. VSS with no signs of acute or active bleed. Problem: Functional Ability Impaired (Hip Fracture) Goal: Optimal Functional Performance Outcome: Ongoing, progressing Weakness to RLE. 2PA with transfers and mobility for safety. Uses hemiwalker for transfers . Followed by PT. Problem: Pain (Hip Fracture) Goal: Acceptable Pain Level Outcome: Ongoing, progressing Denies pain to hip. Routine APAP given per orders. Will continue to monitor for pain and t reat as indicated. Problem: Urinary Elimination Impaired (Hip Fracture) Goal: Effective Urinary Elimination Outcome: Ongoing, progressing Lee catheter remains in place with urine output quantity sufficient. Denies pain or disc omfort to site. l an of Leatha Amezquita RN - 12/30/2019 6:03 PM PDTEnd of shift chart check comple te. VSS. Tolerating general diet. Patient has been up with PT today. Wound nurse came in tod ay to change dressing to his right hip. Patient has been pleasant throughout the day.Electro nically signed by Leatha Mayer RN at 12/30/2019 6:05 PM PDTPlan of Kameron Perry PTA - 12/30/2019 2:01 PM PDTFormatting of this note might be different from the origin al. Physical Therapy Treatment Note Recommended discharge disposition: usp facility Post discharge physical therapy recommendation: Equipment Recommendations: Barriers to community-based discharge Physical Impairment Recommended Frequency: 5 times/wk for 7 days with reassessment due by 01/06/20 Summary: pt sitting in chair needing to use commode completed tranfser training from gabriella r to commode left pt on commode w/ call light within reach nsg then reporting pt's IV had become dislodged and needed to be returned to bed assisted pt to standing while nsg perform ed pericare then completed trnasfer training back to bed Cognitive Assessment Orientation: oriented x 4 Bed Mobility Sit to Supine, Level of [place]: moderate assist (50% patient effort) Safety Issues: decreased use of legs for bridging/pushing Impairments: strength decreased Transfers Chair-Bed, Level of [place]: moderate assist (50% patient effort) [id number], Assistive Device: gait belt Sit-Stand, Level of [place]: moderate assist (50% patient effort) Stand-Sit, Level of [place]: moderate assist (50% patient effort) Bzh-Rherh-Pad, Assistive Device: gait belt Safety Issues: balance decreased during turns, step length decreased Impairments: strength decreased Goals Reflects last filed data and may be from multiple contributors. All Bed Mobility Goal Most Recent Value LTG Status continued at 12/30/2019 0805 LTG [place] Level supervised at 12/30/2019 0805 LTG Assistive Device none at 12/30/2019 0805 All Transfers Goal Most Recent Value LTG Status new at 12/30/2019 0805 LTG [place] Level minimum assist (75% patient effort) at 12/30/2019 0805 LTG Assistive Device 2 wheeled walker (FWW) at 12/30/2019 0805 Gait Goal Most Recent Value LTG Status new at 12/30/2019 0805 LTG [place] Level minimum assist (75% patient effort) at 12/30/2019 0805 LTG Assistive Device 2 wheeled walker (FWW) at 12/30/2019 0805 LTG Distance (feet) 50ft at 12/30/2019 0805 PT Time Calculation Individual Start Time: 1243 Individual Stop Time: 1255 Individual Total Time: 12 PT Total Treatment Time: 12 lan of Care - Leatha Coleman RN - 12/30/2019 12:29 PM PDT Problem: Adult Inpatient Plan of Care Goal: Optimal Comfort and Wellbeing Outcome: Ongoing, progressing Patient talks to over the phone. Warm blankets given to patient per his request. Pers onal items within reach. Problem: Fall Injury Risk Goal: Absence of Fall and Fall-Related Injury Outcome: Ongoing, progressing Bed in low position, gait belt available, distributor cleaner socks on. Problem: Skin Injury Risk Increased Goal: Skin Health and Integrity Outcome: Ongoing, progressing Dressing changed to hip. Shifted position in chair. Problem: Oral Intake Inadequate Goal: Improved Oral Intake Description Pt will consume at least 50% of meals. Outcome: Ongoing, progressing Pt advanced from npo to general diet and tolerated meal. Ate 70% of meal.Electronically si gned by Leatha Mayer RN at 12/30/2019 12:33 PM PDTPlan of Care - Angelica Foreman RD - 12/30/2019 11:36 AM PDT Problem: Oral Intake Inadequate Goal: Improved Oral Intake Pt will consume at least 50% of meals. Outcome: Ongoing, progressing NUTRITION NOTE Summary Moderate risk follow-up. Met with pt. Reports his appetite is somewhat improved today. Feel s hungry. RN assisted pt with ordering lunch. Nutrition Intake Current active diet order is: Diet Diet general; Effective Now 12/27 - pt only had chicken noodle soup & judi savanna. 12/28 - nothing to eat. 12/29 - ordered b aked potato, bread, & water for lunch. 5-10% meals charted Nourishments: pt states he tried a castaneda Magic Cup and liked it, will send daily Medications Vit C, Fe Nutrition-Focused Physical Findings Skin: PI - R sacral spine Anthropometrics Current Weight: 63.5 kg (140 lb) Admit Weight: 63.5 kg (140 lb) Biochemical Data, Medical Test, and Procedures Recent Labs 12/30/19 0852 NA 141 K 4.0 GLU 92 BUN 70* CREA 3.04* Estimated Energy Needs Energy Calorie Requirements: 1587 - 1905 kcal/day, 25 - 30 kcal/kg/admit wt 63.5 kg Estimated Protein Needs Range Gm Protein (gm): 76 - 95 g protein/day, 1.2-1.5 g pro/kg/admit wt 63.5 kg Recommendations Continue general diet Supplements ordered BID - Boost Plus & Magic Cup Encourage PO intake House meals may be appropriate for pt, or needs meal ordering assistance Nutritional Risk Required Follow Up: (5/16 M) Angelica Foreman RD 12/30/2019 11:36 AM lan of Care - Rosa Elena Richmond, PT - 12/30/2019 8:05 AM PDTFormatting of this note might be different from t he original. Physical Therapy Re-Assessment Note Recommended discharge disposition: usp facility Post discharge physical therapy recommendation: ongoing low intensity therapy, will benefi t from structured setting Equipment Recommendations: (TBD) Barriers to community-based discharge Physical Impairment, Pain, and Fall risk Planned Interventions: balance training, bed mobility training, gait training, home exercis e program, manual therapy techniques, patient/family education, ROM (Range of Motion), stair training, strengthening, stretching, malawian ball techniques, wheelchair management/propulsio n training Recommended Frequency: 5 times/wk for 7 days with reassessment due by 01/06/20 Summary: Re-assessment performed this session. Pt reported RN assisted him to the chair at 6 am. Trialed ambulation with platform walker this session. Pt able to scoot to edge of ch air SBA. Sit-stand to platform walker modA. After standing pre gait activity performed pt am bulated in room 20ft total with 3 standing rest breaks needed d/t fatigue. He ambulated with shuffled steps and decreased quita. Pts Rt hip was noted to bed saturated. RN aware and c hanged bandage. Pt ended session sitting up in chair. He reports his pain was less today dur ing ambulation. Continue to recommend SNF Functional Level Prior Prior Functional Level Comment: Indep in ADLs/IADLs, was driving. Pt does his own medicatio n management. Son helps with yardwork. Retired. Hobbies: word puzzles Precautions Precaution Comment: Monitor BP Precautions/Limitations: falls Right Lower Extremity Weight-Bearing: weight-bearing as tolerated Cognitive Assessment Orientation: oriented x 4 Transfers Additional Documentation: sit to/from stand Sit-Stand, Level of [place]: moderate assist (50% patient effort) Stand-Sit, Level of [place]: moderate assist (50% patient effort) [id number]-Fri, Assistive Device: other (see comments)(platform walker ) Maintain Weight Bearing Status: able to maintain weight bearing status Safety Issues: balance decreased during turns Impairments: pain, strength decreased, impaired balance Gait Gait Comments: ambulated with shuffled steps and decreased quita Level of [place]: moderate assist (50% patient effort) Assistive Device: other (see comments)(platform walker ) Distance (feet): 20ft Additional Documentation: deviations Gait Deviations: quita decreased, step length decreased, stride length decreased, toe-to- floor clearance decreased Safety Issues: balance decreased during turns Impairments: pain, impaired balance, strength decreased Strength L UE Strength: WFL R UE Strength: WFL L LE Strength: WFL R LE Strength: s/p femur nailing Goals Reflects last filed data and may be from multiple contributors. All Bed Mobility Goal Most Recent Value LTG Status continued at 12/30/2019 08 LTG [place] Level supervised at 12/30/2019 08 LTG Assistive Device none at 12/30/2019 0805 All Transfers Goal Most Recent Value LTG Status new at 12/30/2019 0805 LTG [place] Level minimum assist (75% patient effort) at 12/30/2019 0805 LTG Assistive Device 2 wheeled walker (FWW) at 12/30/2019 0805 Gait Goal Most Recent Value LTG Status new at 12/30/2019 0805 LTG [place] Level minimum assist (75% patient effort) at 12/30/2019 0805 LTG Assistive Device 2 wheeled walker (FWW) at 12/30/2019 0805 LTG Distance (feet) 50ft at 12/30/2019 0805 lan of Care - Torie Hamlin RN - 12/30/2019 5:07 AM PDTPatient lethargic but easily awakens to verbal stimuli. Oriented x4. Dressing to R hip changed x1 with small amount of sanguinous drainage . Neurovascular status intact with no changes throughout the night. No complaints of pain th roughout the night. VSS. Afebrile. Repositioned Q2hr and PRN. Continues on protonix gtt. Rem ains NPO at this time. H&H remain stable per baseline with no signs of active bleeding noted . Lee catheter in place with appropriate urine output quantity sufficient. No acute events overnight. Shift chart review complete.Electronically signed by Torie Bryant RN at 0 12/30/2019 6:[address] RN - 12/30/2019 12:46 AM PDT Problem: Adult Inpatient Plan of Care Goal: Plan of Care Review Outcome: Ongoing, progressing Goal: Optimal Comfort and Wellbeing Outcome: Ongoing, progressing Plan of care reviewed with patient who verbalizes agreement. No voiced concerns. Problem: Fall Injury Risk Goal: Absence of Fall and Fall-Related Injury Outcome: Ongoing, progressing Low bed. Bed rails x2. Call light and personal items in reach. Nonskid socks. Patient john ins free of fall and injuries. Compliant with call light use. Problem: Skin Injury Risk Increased Goal: Skin Health and Integrity Outcome: Ongoing, progressing Q2hr and PRN repositioning. Dressings over areas of compromised skin integrity. No new ski n issues noted. Problem: Bleeding (Hip Fracture) Goal: Absence of Bleeding Outcome: Ongoing, progressing Dressings to R hip CDI with minimal bruising. Will continue to monitor and change as tesfaye cronin Problem: Functional Ability Impaired (Hip Fracture) Goal: Optimal Functional Performance Outcome: Ongoing, progressing Compliant with hip precautions. Assists with repositioning in bed. Problem: Pain (Hip Fracture) Goal: Acceptable Pain Level Outcome: Ongoing, progressing no complaints of pain at this time. Will continue to monitor and treat with PO PRN medicat ions as indicated. Problem: Urinary Elimination Impaired (Hip Fracture) Goal: Effective Urinary Elimination Outcome: Ongoing, progressing continues with lee catheter. Patent with clear yellow output and no complaints of pain o r discomfort. lan of Leatha Amezquita RN - 12/29/2019 6:01 PM PDTPatient has been sleeping most of the day. PRN nausea medication given after patient came back from EGD. Patient still on NPO until tomorrow. Nonadherent dressing to right hip changed twice. Protonix gtt running per or immanuel. End of shift chart check complete.Electronically signed by Leatha Mayer RN at 05/2020 6:04 PM PDTPlan of Care - Leatha Mayer RN - 12/29/2019 1:37 PM PDT Problem: Adult Inpatient Plan of Care Goal: Plan of Care Review Outcome: Ongoing, progressing Explained care to patient and EGD was done today. Goal: Optimal Comfort and Wellbeing Outcome: Ongoing, progressing Patient has call light within reach. Patient has received phenergan to help with nausea he has been having. Has been resting in bed. Problem: Skin Injury Risk Increased Goal: Skin Health and Integrity Outcome: Ongoing, progressing Dressings have been monitored. Dressing on hip has been changed. lan of Pj - Shannon Stringer PTA - 10:01 AM PDTMISSED THERAPY VISIT Physical Therapy attempted to see the following patient today: Andres Guzmán Missed Visit (procedure) PT currently in endoscopy procedure for GI Bleed. Therapy to f/u as census allows and pt ab le. Electronically Signed by: Shannon Stringer PTA 12/29/2019 10:03 AM -C Instruction s Provation - Lamont Hernandez MD - 12/29/2019 8:36 AM PDTPatient Instructions After Upper G I endoscopy Patient: Andres Guzmán Procedure Date: Sunday, December 29, 2019 Attending MD: LAMONT HERNANDEZ MD; You had a Upper GI endoscopy today. Your doctor made the following findings: - LA Grade C reflux esophagitis. Rule out Dumont's esophagus. Biopsied. - Small hiatal hernia. - Erythematous mucosa in the stomach. Biopsied. - Oozing duodenal ulcer with a visible vessel. Injected. Treated with bipolar cautery. - Non-bleeding duodenal ulcer with a clean ulcer base (Usama Class III). Your doctor recommends: Do not eat or drink anything today. Continue your present medications. We are waiting for your pathology results. Your physician has recommended a repeat upper endoscopy for surveillance based on pathology results. Protonix (pantoprazole) will be given: initiate therapy with 80 mg IV bolus, then 8 mg/hr intravenously by continuous infusion for three days. Do not take any aspirin, ibuprofen (including Advil, Motrin or Nuprin), naproxen (including Aleve), or any other non-steroidal anti-inflammatory drugs. Resume taking Eliquis (apixaban) at your prior dose in 7 days. The findings and recommendations have been discussed with you. Your physician has recommended your hemoglobin be checked every six hours for one day. CALL YOUR PHYSICIAN IF YOU EXPERIENCE: < Any unusual pain < Temperature above 100 degrees Fahrenheit < Shortness of breath DIET: You may resume your regular diet immediately after the procedure unless otherwise instructed by your doctor. CAUTIONS: The medications used to make the examination more comfortable for you will be acting in your body for up to 24 hours. Therefore: < DO NOT drive a car or operate machinery or power tools. < DO NOT drink alcohol or take tranquillizers or sleeping pills. < DO NOT make major personal decisions. This includes signing legal documents and/or contracts. MEDICATIONS: Most medications can be safely resumed once you can eat. The exceptions would be tranquillizers and sleeping pills. LAMONT HERNANDEZ MD 12/29/2019 10:19:54 AM This report has been signed electronically.Electronically signed by Lamont Hernandez MD at 10:20 AM PDTPlan of Pj - Herlinda Mo RN - 12/28/2019 6:38 PM PDTPatient h ad one bm this AM which was loose and reported to be dark green. Unable to obtain stool samp le this AM. Pt started on protonix gtt. Will be NPO after midnight for endoscopy with Dr Thierry darden in AM. Dressing changed x 2 this shift for serosangeunous drainage. Wound is red, macerat ed, blistered and very tender. Wound care consulted by this RN. Will revisit patient for pos sible further dressing recommendations. VSS. Pain managed. WCM. Herlinda Mo RN Plan of Pj - Yolanda Ortez PT - 12/28/2019 2:00 PM PDTMISSED THERAPY VISIT Physical Therapy attempted to see the following patient today: Andres Guzmán Missed Visit (patient declined)(not feeling up to PT at this time) lan of Herlinda Marx RN - 12/28/2019 12:22 PM PDT Problem: Fall Injury Risk Goal: Absence of Fall and Fall-Related Injury Outcome: Ongoing, progressing Patient to call if needing assistance. Bed in locked and lowered position. C all light within reach of the patient. Electronically signed by Herlinda Mo RN at 04/2020 12:24 PM PDTPlan of Lawanda Gutierrez RN - 12/28/2019 12:27 AM PDT Problem: Adult Inpatient Plan of Care Goal: Absence of Hospital-Acquired Illness or Injury Outcome: Ongoing, progressing Intervention: Identify and Manage Fall Risk Note: Call light and overbed table within reach, bed in lowest position with wheels locked side r ails up per policy, non-skid footwear provided, reposition every two hours and hourly rounds continue. Goal: Optimal Comfort and Wellbeing Outcome: Ongoing, progressing Problem: Fall Injury Risk Goal: Absence of Fall and Fall-Related Injury Outcome: Ongoing, progressing Problem: Skin Injury Risk Increased Goal: Skin Health and Integrity Outcome: Ongoing, progressing End of shift chart review complete. Electronically signed by Lawanda Bowden RN at 04/2020 5:29 AM PDTPlan of Pj - Andrez Llamas PTA - 12/27/2019 1:39 PM PDT Physical Therapy Treatment Note Recommended discharge disposition: [facility] facility Post discharge physical therapy recommendation: Equipment Recommendations: Barriers to community-based discharge Physical Impairment Recommended Frequency: 5 times/wk for 7 days with reassessment due by 12/30/19 Summary: pt sitting in chair ready to return to bed completed therex followed by gait and transfer training pt back to supine in bed post tx Cognitive Assessment Orientation: oriented x 4 Bed Mobility Supine to Sit, Level of [place]: moderate assist (50% patient effort) Sit to Supine, Level of [place]: moderate assist (50% patient effort) Safety Issues: decreased use of legs for bridging/pushing Impairments: strength decreased Transfers Sit-Stand, Level of [place]: moderate assist (50% patient effort) Stand-Sit, Level of [place]: moderate assist (50% patient effort) [id number], Assistive Device: other (see comments)(UP walker) Safety Issues: balance decreased during turns, step length decreased Impairments: strength decreased Gait Level of [place]: moderate assist (50% patient effort) Assistive Device: other (see comments)(UP walker) Distance (feet): 4 Gait Deviations: quita decreased, step length decreased Safety Issues: balance decreased during turns, step length decreased Impairments: strength decreased Exercises Bed exercises: ankle pumps, quad sets, glut sets, hip abduction/adduction, heel slides Goals Reflects last filed data and may be from multiple contributors. All Bed Mobility Goal Most Recent Value LTG Status new at 12/23/2019 1600 LTG [place] Level supervised at 12/23/2019 1600 LTG Assistive Device none at 12/23/2019 1600 All Transfers Goal Most Recent Value LTG Status new at 12/23/2019 1600 LTG [place] Level modified independent at 12/23/2019 1600 LTG Assistive Device 2 wheeled walker (FWW) at 12/23/2019 1600 Gait Goal Most Recent Value LTG Status new at 12/23/2019 1600 LTG [place] Level stand by assist at 12/23/2019 1600 LTG Assistive Device 2 wheeled walker (FWW) at 12/23/2019 1600 LTG Distance (feet) 50 at 12/23/2019 1600 PT Time Calculation Individual Start Time: 1230 Individual Stop Time: 1254 Individual Total Time: 24 PT Total Treatment Time: 24 lan of Care - Mell Guardado RN - 12/27/2019 12:32 PM PDT Problem: Adult Inpatient Plan of Care Goal: Plan of Care Review Outcome: Ongoing, progressing Plan of care reviewed with patient. Patient reports understanding. Problem: Fall Injury Risk Goal: Absence of Fall and Fall-Related Injury Outcome: Ongoing, progressing Non-skid socks applied. Patient ambulates with assistance at all times with platform walke r and gait belt. Call light within reach and patient calls appropriately. Problem: Skin Injury Risk Increased Goal: Skin Health and Integrity Outcome: Ongoing, progressing Skin checks complete. Patient is provided weight redistribution with pillows. Pup pads miko william on bottom to prevent skin breakdown. Oral fluids encouraged. R hip incision monitored fo r s/s of breakdown. Problem: Pain (Hip Fracture) Goal: Acceptable Pain Level Outcome: Ongoing, progressing Patient denies any pain at this time. Scheduled tylenol administered for pain. PRN pain me dication available upon request. 12 :36 PM PDTPlan of [facility] - Andrez Llamas PTA - 12/27/2019 12:05 PM PDTFormatting of this not e might be different from the original. Physical Therapy Treatment Note Recommended discharge disposition: inpatient rehabilitation facility Post discharge physical therapy recommendation: Equipment Recommendations: Barriers to community-based discharge Physical Impairment Recommended Frequency: 5 times/wk for 7 days with reassessment due by 12/30/19 Summary: pt supine in bed ready to participate completed therex followed by transfer belkis caio upon standing pt had bowel movement pt stood while nsg began pericare then pt request ing to transfer to commode to finish bowel movement pt on commode post tx Cognitive Assessment Orientation: oriented x 4 Bed Mobility Supine to Sit, Level of [place]: moderate assist (50% patient effort) Safety Issues: decreased use of legs for bridging/pushing Impairments: strength decreased Transfers Sit-Stand, Level of [place]: moderate assist (50% patient effort) Stand-Sit, Level of [place]: moderate assist (50% patient effort) [id number], Assistive Device: other (see comments)(UP walker) Safety Issues: balance decreased during turns, step length decreased Impairments: strength decreased Exercises Bed exercises: ankle pumps, quad sets, heel slides, hip abduction/adduction, glut sets Goals Reflects last filed data and may be from multiple contributors. All Bed Mobility Goal Most Recent Value LTG Status new at 12/23/2019 1600 LTG [place] Level supervised at 12/23/2019 1600 LTG Assistive Device none at 12/23/2019 1600 All Transfers Goal Most Recent Value LTG Status new at 12/23/2019 1600 LTG [place] Level modified independent at 12/23/2019 1600 LTG Assistive Device 2 wheeled walker (FWW) at 12/23/2019 1600 Gait Goal Most Recent Value LTG Status new at 12/23/2019 1600 LTG [place] Level stand by assist at 12/23/2019 1600 LTG Assistive Device 2 wheeled walker (FWW) at 12/23/2019 1600 LTG Distance (feet) 50 at 12/23/2019 1600 PT Time Calculation Individual Start Time: 1042 Individual Stop Time: 1105 Individual Total Time: 23 PT Total Treatment Time: 23 lan of Lawanda Ashraf do, RN - 12/27/2019 6:30 AM PDTAt approximately 2330, patient bradycardic HR in the 30's, was asymptomatic. Hospitalist notified and a stat EKG was ordered. EKG results rep orted to hospitalist and orders to check potassium and mag ordered. Orders noted and carried out. Results WNL. VSS the rest of the night. WCTM lan of Lawanda Gutierrez RN - 12/26/2019 11:04 PM PDT Problem: Adult Inpatient Plan of Care Goal: Absence of Hospital-Acquired Illness or Injury Outcome: Ongoing, progressing Goal: Optimal Comfort and Wellbeing Outcome: Ongoing, progressing Intervention: Monitor Pain and Promote Comfort Note: Patient denies pain and discomfort at this time, will continue to monitor and provide medic ations as well as comfort measures as needed. Problem: Fall Injury Risk Goal: Absence of Fall and Fall-Related Injury Outcome: Ongoing, progressing End of shift chart review complete. Electronically signed by Lawanda Bowden RN at 03/2020 5:04 AM PDTPlan of Jordi Sherman COTA - 12/26/2019 3:50 PM PDTFormattin g of this note might be different from the original. Occupational Therapy Treatment Note Recommended discharge disposition: inpatient rehabilitation facility Post discharge occupational therapy recommendation: will benefit from structured setting Equipment Recommendations: shower chair, grab bars, hand held shower head, long handled ghada e horn, long handled sponge, finish painter, sock aide Barriers to community-based discharge: Level of assistance for ADLs/Mobility and Fall risk Recommended Frequency: 3 times/wk for 10 days with reassessment due by 01/03/20 Summary: pt supine in bed upon ANTONY arrival. Agreeable to participate in OT session at this time. Emphasis on continued ADL tasks with AE. Per RN report wound care coming to address ba ndage however requesting to remain bed level at this time. At this time transitioned to UE s trengthening ex to continued maximizing pt overall strength for daily/functional activities to promote returning to baseline function. During session wound care present to address dres sing discontinued therapy session. Items within reach, no needs indicated at this time. Precautions Precaution Comment: monitor BP Precautions/Limitations: falls Right Lower Extremity Weight-Bearing: weight-bearing as tolerated Exercises Exercise Comments: green- chest pull, diagonal up/down, elbow flex/ext, int/ext rotation 10 x1, rest break inbetween set d/t fatigue. UNGA for proper tech during ex able to continue seq uence intitially however would require cueing/assist later on in reps. Goals Reflects last filed data and may be from multiple contributors. LB Dressing Goal Most Recent Value LTG Status new at 12/24/2019 0953 LTG [place] Level moderate assist (50% patient effort), verbal cues required at 12/23 0953 LTG Adaptive Equipment finish painter, shoe horn, long handled, sock-aid [AE as needed] at 2019 0953 Toilet Transfer Goal Most Recent Value LTG Status new at 12/24/2019 0953 LTG [place] Level minimum assist (75% patient effort), verbal cues required at 2019 0953 LTG Assistive Device 2 wheeled walker (FWW), commode (3 in 1) at 12/24/2019 0953 OT Time Calculation OT Individual Start Time: 1550 OT Individual Stop Time: 1613 OT Individual Total Time: 23 OT Total Treatment Time: 23 Reviewed plan of care and goals set by OTR/L. lan of Care - Andrez Dominguez, KRISHAN - 12/26/2019 1:46 PM PDTFormatting of this note might be different from t he original. Physical Therapy Treatment Note Recommended discharge disposition: inpatient rehabilitation facility Post discharge physical therapy recommendation: Equipment Recommendations: Barriers to community-based discharge Physical Impairment Recommended Frequency: 5 times/wk for 7 days with reassessment due by 12/30/19 Summary: pt sitting in chair ready to return to bed completed therex followed by transfer training from chair to bed pt supine in bed post tx Cognitive Assessment Orientation: oriented x 4 Bed Mobility Supine to Sit, Level of [place]: moderate assist (50% patient effort) Sit to Supine, Level of [place]: moderate assist (50% patient effort) Safety Issues: decreased use of legs for bridging/pushing Impairments: strength decreased Transfers Sit-Stand, Level of [place]: moderate assist (50% patient effort) Stand-Sit, Level of [place]: moderate assist (50% patient effort) [id number], Assistive Device: other (see comments)(Up walker) Safety Issues: balance decreased during turns, step length decreased Impairments: strength decreased Gait Level of [place]: moderate assist (50% patient effort) Assistive Device: other (see comments)(Up walker) Distance (feet): 2 Gait Deviations: quita decreased, step length decreased Safety Issues: balance decreased during turns, step length decreased Impairments: strength decreased Exercises Additional Documentation: seated exercises Bed exercises: ankle pumps, quad sets, glut sets, hip abduction/adduction, heel slides Seated exercises: ankle pumps, hip abduction/adduction, marching, long arc quads Goals Reflects last filed data and may be from multiple contributors. All Bed Mobility Goal Most Recent Value LTG Status new at 12/23/2019 1600 LTG [place] Level supervised at 12/23/2019 1600 LTG Assistive Device none at 12/23/2019 1600 All Transfers Goal Most Recent Value LTG Status new at 12/23/2019 1600 LTG [place] Level modified independent at 12/23/2019 1600 LTG Assistive Device 2 wheeled walker (FWW) at 12/23/2019 1600 Gait Goal Most Recent Value LTG Status new at 12/23/2019 1600 LTG [place] Level stand by assist at 12/23/2019 1600 LTG Assistive Device 2 wheeled walker (FWW) at 12/23/2019 1600 LTG Distance (feet) 50 at 12/23/2019 1600 PT Time Calculation Individual Start Time: 1219 Individual Stop Time: 1242 Individual Total Time: 23 PT Total Treatment Time: 23 lan of Pj - Andrez Llamas PTA - 12/26/2019 12:02 PM PDTFormatting of this note might be different from the o riginal. Physical Therapy Treatment Note Recommended discharge disposition: inpatient rehabilitation facility Post discharge physical therapy recommendation: Equipment Recommendations: Barriers to community-based discharge Physical Impairment Recommended Frequency: 5 times/wk for 7 days with reassessment due by 12/30/19 Summary: pt supine in bed ready to participate completed therex followed by transfer and gait training pt c/o dizziness returned to sitting in chair BP 123/60 Cognitive Assessment Orientation: oriented x 4 Bed Mobility Supine to Sit, Level of [place]: moderate assist (50% patient effort) Safety Issues: decreased use of legs for bridging/pushing Impairments: strength decreased Transfers Sit-Stand, Level of [place]: moderate assist (50% patient effort) Stand-Sit, Level of [place]: moderate assist (50% patient effort) [id number], Assistive Device: other (see comments)(Up walker) Safety Issues: balance decreased during turns, step length decreased Impairments: strength decreased Gait Level of [place]: moderate assist (50% patient effort) Assistive Device: other (see comments)(Up walker) Distance (feet): 8 Gait Deviations: quita decreased, step length decreased Safety Issues: balance decreased during turns, step length decreased Impairments: strength decreased Exercises Bed exercises: ankle pumps, quad sets, glut sets, hip abduction/adduction, heel slides Goals Reflects last filed data and may be from multiple contributors. All Bed Mobility Goal Most Recent Value LTG Status new at 12/23/2019 1600 LTG [place] Level supervised at 12/23/2019 1600 LTG Assistive Device none at 12/23/2019 1600 All Transfers Goal Most Recent Value LTG Status new at 12/23/2019 1600 LTG [place] Level modified independent at 12/23/2019 1600 LTG Assistive Device 2 wheeled walker (FWW) at 12/23/2019 1600 Gait Goal Most Recent Value LTG Status new at 12/23/2019 1600 LTG [place] Level stand by assist at 12/23/2019 1600 LTG Assistive Device 2 wheeled walker (FWW) at 12/23/2019 1600 LTG Distance (feet) 50 at 12/23/2019 1600 PT Time Calculation Individual Start Time: 1030 Individual Stop Time: 1054 Individual Total Time: 24 PT Total Treatment Time: 24 lan of Pj - Ja Marcus RN - 12/26/2019 11:45 AM PDTCare Management Follow-Up Readmission Risk: HIGH Current Discharge Plan Anticipated Discharge Disposition: [facility] facility Expected DC Date: 12/30/2019 Barriers to Discharge: placement Steps Taken Toward Discharge: Attended morning rounds Next Steps: d/c to [facility] Community Support Services Current Outpt/Agency/Support Groups: none Community Agency Name: none Other Resources: Discharge Transportation Transportation Needs: agency transportation Notes: Pt not medically ready for discharge. Cm called Idalia CM at [facility] and updat ed her on Pt progress. Pt may be ready for d/c Monday. Cm will continue to follow for placem ent needs. Electronically signed: Ja Marcus RN 12/26/2019 11:46 AM lan of Audra Pick[facility] t - 12/26/2019 10:00 AM PDT Problem: Fall Injury Risk Goal: Absence of Fall and Fall-Related Injury Outcome: Ongoing, progressing Problem: Skin Injury Risk Increased Goal: Skin Health and Integrity Outcome: Ongoing, progressing Bed in low position. Call light within reach. PO intake encouraged. Frequent checks on inc ision. lan of Lawanda Gutierrez RN - 12/26/2019 12:15 AM PDT Problem: Adult Inpatient Plan of Care Goal: Absence of Hospital-Acquired Illness or Injury Outcome: Ongoing, progressing Intervention: Identify and Manage Fall Risk Note: Call light and overbed table within reach, bed in lowest position with wheels locked, side rails up per policy, non-skid footwear provided, and hourly rounds continue. Goal: Optimal Comfort and Wellbeing Outcome: Ongoing, progressing End of shift chart review complete. Electronically signed by Lawanda Bowden RN at 02/2020 5:05 AM PDTPlan of Aster Dubois RN - 12/25/2019 5:48 PM PDTEnd of shift audit complete. lan of Kianna Burleson PT - 12/25/2019 2:03 PM PDTFormatting of this note m ight be different from the original. Physical Therapy Treatment Note Recommended discharge disposition: inpatient rehabilitation facility Post discharge physical therapy recommendation: family involved/supportive, pt is motivate d participant, minimum 5 days of therapy/week Equipment Recommendations: (TBD) Barriers to community-based discharge Physical Impairment, Level of assistance for ADLs/mobility, Pain, and Fall risk Recommended Frequency: 5 times/wk for 7 days with reassessment due by 12/30/19 Summary: Pt having been in chair since AM session and eager to return to supine. Pt benefi ts from v.i. on hand placement during transfers and exhibited some retropulsion when backing up to bed.Gait pattern is antalgic with gradually increasing R knee flexion as distance pro gresses. Pt stayed near bedside during ambulation. Bed exercise handout provided upon retur n to supine and instruction to perform again later this evening. Pt is motivated and is alre jasmyn exhibiting improvement in functional mobility with acute PT. BP in 110s systolic post a ctivity. Precautions Precaution Comment: monitor BP Precautions/Limitations: falls Right Lower Extremity Weight-Bearing: weight-bearing as tolerated Cognitive Assessment Orientation: oriented x 4 Bed Mobility Sit to Supine, Level of [place]: maximal assist (25% patient effort), verbal cues requ ired Safety Issues: decreased use of legs for bridging/pushing, decreased use of arms for pushin g/pulling Impairments: strength decreased, pain, impaired balance Transfers Sit-Stand, Level of [place]: moderate assist (50% patient effort), verbal cues require d Stand-Sit, Level of [place]: moderate assist (50% patient effort), verbal cues require d [id number], Assistive Device: 2 wheeled walker (FWW), gait belt Safety Issues: sequencing ability decreased, balance decreased during turns Gait Level of [place]: moderate assist (50% patient effort) Assistive Device: 2 wheeled walker (FWW), gait belt Distance (feet): 6 Gait Deviations: quita decreased, stride length decreased, stride width increased, toe-to -floor clearance decreased Safety Issues: balance decreased during turns, loses balance backward Impairments: pain, impaired balance, strength decreased Exercises Additional Documentation: bed exercises Bed exercises: right, ankle pumps, quad sets, glut sets, hip abduction/adduction, heel slid es Repetitions: x 5-10 ea Goals Reflects last filed data and may be from multiple contributors. All Bed Mobility Goal Most Recent Value LTG Status new at 12/23/2019 1600 LTG [place] Level supervised at 12/23/2019 1600 LTG Assistive Device none at 12/23/2019 1600 All Transfers Goal Most Recent Value LTG Status new at 12/23/2019 1600 LTG [place] Level modified independent at 12/23/2019 1600 LTG Assistive Device 2 wheeled walker (FWW) at 12/23/2019 1600 Gait Goal Most Recent Value LTG Status new at 12/23/2019 1600 LTG [place] Level stand by assist at 12/23/2019 1600 LTG Assistive Device 2 wheeled walker (FWW) at 12/23/2019 1600 LTG Distance (feet) 50 at 12/23/2019 1600 PT Time Calculation Individual Start Time: 1403 Individual Stop Time: 1444 Individual Total Time: 41 PT Total Treatment Time: 41 lan of Ja Issa RN - 12/25/2019 1:31 PM PDTCare Management Follow-Up Readmission Risk: HIGH Current Discharge Plan Anticipated Discharge Disposition: usp facility Expected DC Date: 12/27/2019 Barriers to Discharge: placement Steps Taken Toward Discharge: Attended rounds Next Steps: d/c to [facility] Community Support Services Current Outpt/Agency/Support Groups: none Community Agency Name: none Other Resources: Discharge Transportation Transportation Needs: agency transportation Notes: Pt not medically ready for discharge. Cm received call from [facility] from [facility]. Pt has been accepted but wants Pt more stable before receiving Pt. CM brendon l follow for any other needs that arise. Electronically signed: Ja Marcus RN 12/25/2019 1:32 PM lan of Rosa Elena Banks PT - 12/25/2019 11:45 AM PDTFormatting of this note might be different from t mary original. Physical Therapy Treatment Note Recommended discharge disposition: inpatient rehabilitation facility Post discharge physical therapy recommendation: family involved/supportive, pt is motivate d participant, minimum 5 days of therapy/week Equipment Recommendations: (TBD) Barriers to community-based discharge Pain and Fall risk Planned Interventions: (may reflect documentation from different provider) balance training, bed mobility trainin g, gait training, home exercise program, manual therapy techniques, patient/family education , ROM (Range of Motion), stair training, strengthening, stretching, malawian ball techniques, w heelchair management/propulsion training Recommended Frequency: 5 times/wk for 7 days with reassessment due by 12/30/19 Summary: Assisted pt with bed ther ex initally, he reported decreased pain with exercises today. Bed mobility modA with verbal instructions for techniques. Sitting BP 102/66 initally , pt reported feeling slightly dizzy. After sitting break BP 129/60. Sit-stand to FWW modA, he took turn steps to get to commode with FWW. After using commode he ambulated 4ft to recli ner. BP after activity 87/46. After pt reclined in chair BP increased to 100/61. He was seat ed in chair at end of session. Continue to recommend IRF consult Precautions Precaution Comment: Monitor BP Precautions/Limitations: falls Right Lower Extremity Weight-Bearing: weight-bearing as tolerated Cognitive Assessment Orientation: oriented x 4 Bed Mobility Additional Documentation: supine to/from sit Assistive Device: bed rails, HOB elevated Supine to Sit, Level of [place]: moderate assist (50% patient effort), verbal cues req uired Safety Issues: decreased use of legs for bridging/pushing, decreased use of arms for pushin g/pulling Impairments: strength decreased, pain, impaired balance Transfers Additional Documentation: sit to/from stand Chair-Bed, Level of [place]: moderate assist (50% patient effort), verbal cues require d [id number], Assistive Device: 2 wheeled walker (FWW) Sit-Stand, Level of [place]: moderate assist (50% patient effort), verbal cues require d Stand-Sit, Level of [place]: moderate assist (50% patient effort), verbal cues require d [id number], Assistive Device: 2 wheeled walker (FWW), gait belt Maintain Weight Bearing Status: able to maintain weight bearing status Safety Issues: sequencing ability decreased, balance decreased during turns Impairments: impaired balance, coordination impaired, pain, decreased flexibility Gait Gait Comments: 4 steps to chair Level of [place]: moderate assist (50% patient effort) Assistive Device: 2 wheeled walker (FWW) Distance (feet): 4ft Additional Documentation: deviations Gait Deviations: quita decreased, stride length decreased, stride width increased, toe-to -floor clearance decreased Safety Issues: balance decreased during turns, loses balance backward Impairments: pain, impaired balance, strength decreased Goals Reflects last filed data and may be from multiple contributors. All Bed Mobility Goal Most Recent Value LTG Status new at 12/23/2019 1600 LTG [place] Level supervised at 12/23/2019 1600 LTG Assistive Device none at 12/23/2019 1600 All Transfers Goal Most Recent Value LTG Status new at 12/23/2019 1600 LTG [place] Level modified independent at 12/23/2019 1600 LTG Assistive Device 2 wheeled walker (FWW) at 12/23/2019 1600 Gait Goal Most Recent Value LTG Status new at 12/23/2019 1600 LTG [place] Level stand by assist at 12/23/2019 1600 LTG Assistive Device 2 wheeled walker (FWW) at 12/23/2019 1600 LTG Distance (feet) 50 at 12/23/2019 1600 lan of Aster Stearns RN - 12/25/2019 10:53 AM PDTPt turned q 2 hours, with pillows beneath talia ny prominences. Wound care initiated for blisters on right hip. Will continue to assess. Chanda ctronically signed by Aster Gomez RN at 12/25/2019 10:53 AM PDTPlan of Jada Miller RN - 12/25/2019 6:19 AM PDTPt blisters have all opened up, dressing saturated wi th serous fluid. Aquacel dressings have been changed for ABD dressings due to adhesive pulli ng on skin. Wound consult submitted. 20 6:23 AM PDTPlan of Jada Yoo RN - 12/25/2019 5:26 AM PDTPatient with no sig nificant events this shift. Pt remains with a low appetite. Pt has had hiccups through the night and intermitted congested cough. Pt had an output of 100 ml of urine. Blisters on ri ght hip continued to drain. Pt was placed on 2L NC saturations dropped to high 80's while re sting. Pt BP's have been stable. No complaints at this time. Will continue to monitor. End of shift review complete. lan of Jada Yoo RN - 12/24/2019 11:14 PM PDT Problem: Skin Injury Risk Increased Goal: Skin Health and Integrity Outcome: Ongoing, progressing Assessed pt's skin, pt has had surgery incisions redressed, pt does have blisters that are draining. Will continue to monitor abrasions and surgical site. lan of Aster Dubois RN - 12/23 4:54 PM PDTPt much more lethargic today than yesterday. BP continues to drop with any activity. Blood cultures and urine sent to lab. Pt remains afebrile with very poor appetite . Will continue to monitor closely. End of shift audit complete. lan of Aster Dubois RN - 12/24/2019 9:55 AM PDTBP continues to fall with any movement. C/o dizzyness and occassional nausea. 2 person assist with walker and gait belt to help prevent injury. Will continue to assess lan of Lisa Flores OTR/Lee Ann - 020 9:53 AM PDT Occupational Therapy Initial Evaluation Note Recommended discharge disposition: inpatient rehabilitation facility Post discharge occupational therapy recommendation: will benefit from structured setting Anticipated Equipment Needs At Discharge OT: shower chair, grab bars, hand held shower head , long handled shoe horn, long handled sponge, finish painter, sock aide(BSC (?)) Barriers to community-based discharge Physical Impairment, Level of assistance for ADLs/mobility, Lack of equipment, Pain, and Fa ll risk, low BP Planned Interventions: ADL retraining, balance training, bed mobility training, cognitive r etraining, patient/family education, ROM (Range of Motion), strengthening, transfer training , caregiver ed/support, discharge planning Therapy Frequency: 3 times/wk for 10 days with reassessment due by 01/03/20 Summary: Pt is seated in the recliner upon entry, lethargic and agreeable to OT session. B P monitored closely throughout therapy session, due to pt being symptomatic with activity. S ee below for details. During this evaluation pt greatly limited by his low BP with activity ; pt does report a hx of vertigo as well. Pt completed basic grooming task while seated in t he recliner. Pt then assisted back into bed at end of session, to recover from low BP. Prov ided pt handout for AE recommendations. Objective impairments include pain with activity, d ecrease in BP, symptomatic; level of assist for self care tasks and transfers. These functi onal limitations in patient's ability to complete ADLs/ IADLs/ functional mobility and will require ongoing occupational therapy to maximize functional independence and offer the oppor tunity to return to baseline function. Pt may benefit from ongoing OT to further address ADL s, AE training and transfers. Pt supine in bed, call light nearby, RN aware. Sitting in the recliner: 108/54 After standing (returned supine) 71/40 3 minutes later 72/44 5 minutes later 92/53 Living Environment Lives With: spouse Living Arrangements: house Number of Stairs to Enter Home: 1 Number of Stairs Within Home: 0 Living Environment Comment: Walk in shower with threshold-no equipment. Standard toilet hei ght.FWW accessible Functional Level Prior Transferring: independent Ambulation: independent(uses SPC) Toileting: independent Bathing: independent Dressing: independent Eating: independent Equipment Currently Used at Home: 2 wheeled walker (FWW), cane, straight, single point Prior Functional Level Comment: Indep in ADLs/IADLs, was driving. Pt does his own medicatio n management. Son helps with yardwork. Retired. Hobbies: word puzzles Precautions Precaution Comment: Monitor BP Precautions/Limitations: falls Right Lower Extremity Weight-Bearing: weight-bearing as tolerated Cognitive Assessment Cognitive Comments: Answers questions appropriately throughout evaluation-lethargic Orientation: oriented x 4 Impairments Found (describe specific impairments): functional endurance/activity tolerance, gait, locomotion, and balance, muscle performance, ROM Sensory Assessment Sensation Comments: Denies any numbness/tingling Vision Comments: Wears glasses-no acute changes to his baseline ADLs Limited participation in ADL tasks this AM due to fatigue level. Plan to further address AD Ls and AE training as able Grooming Assessment/Training Grooming Assess/Train, Comment: Pt completed grooming tasks while seated in the recliner Grooming, Level of [place]: supervised Assistive Device: none Grooming Assess/Train, Position: sitting Bed Mobility Additional Documentation: supine to/from sit Assistive Device: HOB elevated, bed rails Sit to Supine, Level of [place]: maximal assist (25% patient effort), verbal cues requ ired Safety Issues: decreased use of arms for pushing/pulling, decreased use of legs for bridgin g/pushing Impairments: strength decreased, impaired balance, coordination impaired, pain Transfers Transfers Comments: Instruction for hand placement during transfer and use of the FWW. Pt a ppeared to demonstrate difficulties following 1-step instruction for side stepping, which ma y have been from his low BP. Additional Documentation: sit to/from stand, bed to/from chair Chair-Bed, Level of [place]: moderate assist (50% patient effort), verbal cues require d [id number], Assistive Device: gait belt Sit-Stand, Level of [place]: moderate assist (50% patient effort), verbal cues require d Stand-Sit, Level of [place]: moderate assist (50% patient effort), verbal cues require d [id number], Assistive Device: 2 wheeled walker (FWW), gait belt Safety Issues: sequencing ability decreased, balance decreased during turns Impairments: impaired balance, coordination impaired, pain, decreased flexibility ROM Comments: UE ROM WFL Strength Comments: bilat UEs WFL; L hand dominant Balance Sitting Balance: Static: good balance Standing Balance: Static: fair balance Goals Reflects last filed data and may be from multiple contributors. LB Dressing Goal Most Recent Value LTG Status new at 12/24/2019 0953 LTG [place] Level moderate assist (50% patient effort), verbal cues required at 12/23 0953 LTG Adaptive Equipment finish painter, shoe horn, long handled, sock-aid [AE as needed] at 2019 0953 Toilet Transfer Goal Most Recent Value LTG Status new at 12/24/2019 0953 LTG [place] Level minimum assist (75% patient effort), verbal cues required at 2019 0953 LTG Assistive Device 2 wheeled walker (FWW), commode (3 in 1) at 12/24/2019 0953 lan of Care - Mag Schmid ch, PT - 12/24/2019 8:02 AM PDTFormatting of this note might be different from th e original. Physical Therapy Treatment Note Recommended discharge disposition: inpatient rehabilitation facility Post discharge physical therapy recommendation: family involved/supportive, pt is motivate d participant, minimum 5 days of therapy/week Equipment Recommendations: (TBD) Barriers to community-based discharge Precautions, Pain, and Fall risk Recommended Frequency: 5 times/wk for 7 days with reassessment due by 12/30/19 Summary: Pt presents supine in bed and agreeable to therapy. Focus of session to increase activity tolerance with close monitoring of vitals d/t recent orthostatic hypotension. Initi ated session with gentle ROM into hip flex/ext and ABD/ADD to reduce reports of stiffness in R hip- pt tolerates well and reports reduced pain following and he was encouraged to comple te every hour throughout the day with use of gait belt and pt agreeable. Initiated mobility to EOB and pt noted to have continued onset of dizziness with each change in position (see b elow chart for details) with lowest BP reading 74/40 after taking a few steps toward recline r. Once pt in recliner, he was promptly placed in full recline and BP frequently checked wit h return of BP to therapeutic level, at which time pt returned to upright sitting in recline r. RN aware of BP concerns. (Vitals pre- HR 63 bpm, O2 91% on RA, BP 114/56) Precautions Precaution Comment: monitor BP Precautions/Limitations: falls Right Lower Extremity Weight-Bearing: weight-bearing as tolerated Cognitive Assessment Cognitive Comments: WFL Orientation: oriented x 4 Bed Mobility Additional Documentation: supine to/from sit Assistive Device: HOB elevated Supine to Sit, Level of [place]: moderate assist (50% patient effort), verbal cues req uired Safety Issues: decreased use of arms for pushing/pulling, decreased use of legs for bridgin g/pushing Impairments: decreased flexibility, pain, impaired balance Transfers Additional Documentation: sit to/from stand Sit-Stand, Level of [place]: minimal assist (75% patient effort) Stand-Sit, Level of [place]: minimal assist (75% patient effort) [id number], Assistive Device: 2 wheeled walker (FWW) Maintain Weight Bearing Status: able to maintain weight bearing status Safety Issues: sequencing ability decreased Impairments: decreased flexibility, impaired balance, pain Gait Gait Comments: side stepping to recliner Level of [place]: minimal assist (75% patient effort) Assistive Device: 2 wheeled walker (FWW) Distance (feet): 2 Additional Documentation: deviations, safety, impairments Gait Deviations: quita decreased, double stance time increased, limb motion velocity decr eased, step length decreased Safety Issues: balance decreased during turns Impairments: decreased flexibility, impaired balance, pain Balance Sitting Balance: Static: good balance Standing Balance: Static: fair balance Goals Reflects last filed data and may be from multiple contributors. All Bed Mobility Goal Most Recent Value LTG Status new at 12/23/2019 1600 LTG [place] Level supervised at 12/23/2019 1600 LTG Assistive Device none at 12/23/2019 1600 All Transfers Goal Most Recent Value LTG Status new at 12/23/2019 1600 LTG [place] Level modified independent at 12/23/2019 1600 LTG Assistive Device 2 wheeled walker (FWW) at 12/23/2019 1600 Gait Goal Most Recent Value LTG Status new at 12/23/2019 1600 LTG [place] Level stand by assist at 12/23/2019 1600 LTG Assistive Device 2 wheeled walker (FWW) at 12/23/2019 1600 LTG Distance (feet) 50 at 12/23/2019 1600 Activity Position BP Pre Supine 114/56 Mid Sitting EOB 98/55 (taken 3 times across 10 minutes with stable MAP at 67) Mid Seated in recliner after standing transfer 74/40 Post Reclined in recliner 118/54 PT Time Calculation Individual Start Time: 08 Individual Stop Time: 839 Individual Total Time: 38 PT Total Treatment Time: 38 lan of Jada Yoo RN - 12/24/2019 5:21 AM PDTPatient with no significant events this shift. Pt has been maintaining BP's in the low 100's systaltically. Pt has no t voided all night, and was bladder scanned for 700 ml. Pt will try to void by 0600 or will need a straight cath. Pt does have formed blisters around insicion area on R thigh. VSS t his shift. No complaints at this time. Will continue to monitor. End of shift review complete. lan of Jada Yoo RN - 12/23/2019 9:56 PM PDT Problem: Fall Injury Risk Goal: Absence of Fall and Fall-Related Injury Outcome: Ongoing, progressing Pt's BP is above 100, will continue to monitor pt for BP changes lan of Lily Abernathy RN - 0 6:31 PM PDTShift check complete 20 6:31 PM PDTPlan of Lily Abernathy RN - 12/23/2019 6:31 PM PDT Problem: Adult Inpatient Plan of Care Goal: Plan of Care Review Outcome: Ongoing, progressing Patient's pain is manageable. Call light within reach. lan of Ja Parker RN - 12/23/2019 4:24 PM PDTCare Management Initial Assessment Readmission Risk: Medium Status Prior to Admission or Illness Arrival From: admitted as an inpatient Lives With: spouse Living Arrangements: house Caregiver For: spouse Patient s Caregiver: other (see comments)(IADL and mobility) Functional Status: Pt uses SPC at baseline for mobility greater than household distance d/ t hx of L knee pain. Independent at baseline with ADLs/IADLs. Pt denies other falls prior to the one that led to this admission. Caregiving Concerns: none Home Accessibility: no concerns Transportation Available: agency transportation Able to return to prior living: other (see comments)(SNF or Swing Bed) Care Management Concerns Last discharge date: Readmission Within Last 30 Days: no previous admission in last 30 days Is Readmission Diagnosis Related to or Same As: Previous Discharging Facility: Previous Discharge Destination From: PCP: Barbara Gilman MD Contact Information Family Contact Information: Name: Marissa Guzmán Pager: none Fax: none DC Needs Assessment Current Outpt/Agency/Support Groups: none Community Agency Name: none Anticipated Changes Related to Illness: inability to care for self Concerns to be Addressed: discharge planning concerns Services Anticipated at Discharge: usp facility Equipment Used at Home: cane, straight, single point, 2 wheeled walker (FWW) Equipment Needed after Discharge: walker, standard Durable Medical Equipment Provider: Pharmacy/Medication Needs: other (see comments)([facility] in [place], [place]) Transportation Needs: agency transportation Initial Plan Anticipated Discharge Disposition: usp facility Expected DC Date: other (see comments)(SNF or Swing Bed) Steps Taken Toward Discharge: Completed d/c planning assessment Next Steps: d/c to SNF or SB Notes: Cm introduce self and explained role. Pt was independent with ADLs and Mobility prio r to fall. Pt lives with Marissa (spouse) in a one story home with only a threshold step into home. Pt is caregiver to spouse. Pt on Eliquis currently. Pt has a cane but uses seldom, carson s not have home O2, or dialysis. Pt stated that he would like to go [facility] Swi ng bed if needed before going home. Cm called [facility] and received contact [facility] - [place]alia Garduno [phone]. Cm sent referral to [facility]. Pt stated that Deanna (daughter) edgardo harmon be available to assist at home once home. Cm will follow for placement needs. Electronically signed: Ja Marcus RN 12/23/2019 4:24 PM lan of Care - Mag Rhoades, PT - 12/23/2019 4:00 PM PDT Physical Therapy Initial Evaluation Note Recommended discharge disposition: other (see comments)(TBD, pending progress- may be good IRF candidate) Post discharge physical therapy recommendation: family involved/supportive Equipment Recommendations: (TBD) Barriers to community-based discharge Level of assistance for ADLs/mobility, Precautions, Pain, and Fall risk Planned Interventions: balance training, bed mobility training, gait training, home exercis e program, manual therapy techniques, patient/family education, ROM (Range of Motion), stair training, strengthening, stretching, malawian ball techniques, wheelchair management/propulsio n training Recommended Frequency: 5 times/wk for 7 days with reassessment due by 12/30/19 Summary: Pt presents reclined in bed and agreeable to therapy despite reports of 6/10 pain in R LE. Pt given education on post-op precautions/WB status, mobility techniques/progressi on and PT POC. Pt demonstrating functional baseline strength of B UEs/LLE, however, R LE castañeda ited in assessment d/t pain. Initiated gentle ther-ex with encouragement of AAROM each hour while in bed to aid in pain control and diminishing impact from scar tissue formation- pt ve rbalized good understanding. Pt initiates mobility well, however, limited by onset of dizzin ess/lightheadedness with transition to upright. Pt was only able to stand for a few brief se conds before needing assist to to sit back down as he became less responsive to therapist qu estions/commands. BP assessed when pt back in supine and found to be 81/41 (down from 105/54 pre activity); BP rechecked a couple minutes following return to supine and had rebounded b ack to 115/56 - RN made aware. PT to defer on d/c recommendation until able to further asses s mobility/activity tolerance- given that pt is well below his functional baseline, he may b enefit from post-acute rehab in IRF setting as he has good family support for eventual retur n home and has been motivated to do all that was asked of him during therapy evaluation. WCT M and update rec as able/appropriate. (Vitals pre- HR 60 bpm, O2 90% on RA, BP 105/54) Living Environment Lives With: spouse Living Arrangements: house Number of Stairs to Enter Home: 1(threshold step) Number of Stairs Within Home: 0 Living Environment Comment: BR: shower unit with threshold, not accessible to walker, tall toilet seat, no grab bars. Functional Level Prior Transferring: independent Ambulation: independent Toileting: independent Bathing: independent Dressing: independent Eating: independent Communication: understands/communicates without difficulty Swallowin-->swallows foods/liquids without difficulty Equipment Currently Used at Home: cane, straight, single point, 2 wheeled walker (FWW) Prior Functional Level Comment: Pt uses SPC at baseline for mobility greater than household distance d/t hx of L knee pain. Independent at baseline with ADLs/IADLs. Pt denies other fa lls prior to the one that led to this admission. Precautions Precaution Comment: monitor BP Precautions/Limitations: falls Right Lower Extremity Weight-Bearing: weight-bearing as tolerated Cognitive Assessment Cognitive Comments: WFL Orientation: oriented x 4 Impairments Found (describe specific impairments): functional endurance/activity tolerance, gait, locomotion, and balance, muscle performance Bed Mobility Additional Documentation: supine to/from sit Assistive Device: bed rails, HOB elevated Supine to Sit, Level of [place]: moderate assist (50% patient effort) Sit to Supine, Level of [place]: maximal assist (25% patient effort) Safety Issues: decreased use of arms for pushing/pulling, decreased use of legs for bridgin g/pushing Impairments: decreased flexibility, impaired balance, pain Transfers Additional Documentation: sit to/from stand Sit-Stand, Level of [place]: minimal assist (75% patient effort) Stand-Sit, Level of [place]: minimal assist (75% patient effort) Uff-Hojdu-Pfv, Assistive Device: 2 wheeled walker (FWW) Maintain Weight Bearing Status: able to maintain weight bearing status Safety Issues: sequencing ability decreased Impairments: decreased flexibility, impaired balance, pain Gait Gait Comments: ANA- orthostatic hypotension Sensory Assessment Sensation Comments: B LE sensation in tact to light touch Range of Motion ROM Testing Results: no range of motion deficits identified R LE ROM: pain-limiting, but tolerable through functional ROM with AAROM via gait belt Strength L UE Strength: WFL R UE Strength: WFL L LE Strength: WFL R LE Strength: ankle PF/DF WFL, strong quad cxn via quad set, otherwise not formally tested . Balance Sitting Balance: Static: good balance Standing Balance: Static: fair balance Goals Reflects last filed data and may be from multiple contributors. All Bed Mobility Goal Most Recent Value LTG Status new at 12/23/2019 1600 LTG [place] Level supervised at 12/23/2019 1600 LTG Assistive Device none at 12/23/2019 1600 All Transfers Goal Most Recent Value LTG Status new at 12/23/2019 1600 LTG [place] Level modified independent at 12/23/2019 1600 LTG Assistive Device 2 wheeled walker (FWW) at 12/23/2019 1600 Gait Goal Most Recent Value LTG Status new at 12/23/2019 1600 LTG [place] Level stand by assist at 12/23/2019 1600 LTG Assistive Device 2 wheeled walker (FWW) at 12/23/2019 1600 LTG Distance (feet) 50 at 12/23/2019 1600 lan of Care - Chasity Alston RN - 12/23/2019 5:32 AM PDT Problem: Adult Inpatient Plan of Care Goal: Plan of Care Review Outcome: Ongoing, progressing Goal: Absence of Hospital-Acquired Illness or Injury Outcome: Ongoing, progressing Goal: Optimal Comfort and Wellbeing Outcome: Ongoing, progressing Note: Pt's pain has been manageable with Hydrocodone. Pt has been instructed to call when prn lorenzo n medication is needed. Problem: Fall Injury Risk Goal: Absence of Fall and Fall-Related Injury Outcome: Ongoing, progressing Note: Pt did not have any falls during the night. Bed is locked and in the lowest position, call light and bedside table are within reach, and pt calls appropriately for any needs. Problem: Skin Injury Risk Increased Goal: Skin Health and Integrity Outcome: Ongoing, progressing End of shift chart check complete. Electronically signed by Chasity Alston RN at 2019 5:33 AM PDTPlan of Pj - Miya Wilson RN - 12/22/2019 12: 18 PM PDT Problem: Adult Inpatient Plan of Care Goal: Plan of Care Review Outcome: Ongoing, progressing Goal: Patient-Specific Goal Outcome: Ongoing, progressing Goal: Absence of Hospital-Acquired Illness or Injury Outcome: Ongoing, progressing Goal: Optimal Comfort and Wellbeing Outcome: Ongoing, progressing Goal: Readiness for Transition of Care Outcome: Ongoing, progressing Goal: Rounds/Family Conference Outcome: Ongoing, progressing Problem: Fall Injury Risk Goal: Absence of Fall and Fall-Related Injury Outcome: Ongoing, progressing Problem: Skin Injury Risk Increased Goal: Skin Health and Integrity Outcome: Ongoing, progressing p Note - Melquiades Baez DO - 12/22/2019 10:34 AM [facility] Service: Orthopaedic Surgery OPERATIVE REPORT PATIENT NAME: Andres Guzmán AGE: 89 y.o. TODAY'S DATE: 12/22/2019 Surgeon: Surgeon(s): Melquiades Baez DO Surgical Assists: Enoch Soto PA-C, was essential for positioning, prepping and draping, re traction, and wound closure for this case Pre-op Diagnosis: Right intertrochanteric hip fracture Post-op Diagnosis: Same Procedure: Right hip gamma nail Findings: See below dictation Estimated Blood Loss: 200 mL Anesthesiologist: Ja Hill CRNA Anesthesia: General Procedure in Detail: The patient was identified in the preop holding area. Correct operative site and operation confirmed by the operating surgeon. The correct operative extremity was signed by the oper ating surgeon and agreed upon with the patient's consent. The patient was taken back to the operating room. The patient was placed supine on a normal operating table. The patient wa s prepped and draped in standard sterile fashion. A timeout was performed confirming side, site, patient, operation,and allergies. The patient did receive preoperative antibiotics. We then identified the area of the greater trochanter. We then made an incision 2 fingerbr eadths proximal to the greater trochanter. I dissected down to the IT band. I then was abl e to evaluate and feel the greater trochanter. I then placed a guidewire down to the greate r trochanter. I used an over reamer to ream over the top of the guidewire pin. I then plac ed a 200 mm intermediate nail. I then sank the nail to appropriate depth. I then placed a guidewire up into the cephalomedullary portion. I then placed the cephalomedullary screw, which was 100 mm after reaming to the appropriate depth. I then liked my reduction. I took all traction. I then placed 2 additional interlocking screws in the distal portion of the nail. We then took final C-arm shots demonstrating good placement of the nail, appropriate placement of the screws, appropriate length of the screws. After that, we then washed the wounds out copiously, closed with a 2-0 Vicryl in the subcutaneous tissues, 0 Vicryl in the IT band, running 3-0 Monocryl in the longer incision. Skin glue was placed. Tegaderms were placed. He was awoken, extubated in stable condition and taken to PACU. All sharps and sponge counts were correct. Complications: none Electronically signed by: Melquiades Baez DO, 12/22/2019 10:[address] [facility] lan of Care - Cru z, JIAN Lezama - 12/22/2019 12:00 AM PDTPain managed well with dilaudid PRN. Zofran IVP g iven for nausea and vomiting x1 with good effect. NPO since midnight. Voiding adequate amoun ts. 2L NC to keep sats in 90's. Right forearm with abrasions cleansed with soap and water co nathalia with foam dressing. Q6h blood sugar checks, no insulin coverage required. 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 EKG and Ches t XR complete in chart. End of shift review complete. Lise Rosario RN 12/22/2019 5:01 AM Problem: Adult Inpatient Plan of Care Goal: Patient-Specific Goal Outcome: Ongoing, progressing 1. Andres will have pain and muscle spasms managed with oral medications to less than 4/10 b y 12/24/19. 2. Andres will have no new deficits in circulation, sensation, motor, or neuro vascular by . 3. Andres will be free from infection postoperatively thru 12/24/19. 4. Andres will ambulate in halls 50ft., 3 times per day by 12/24/19. 5. Andres will tolerate a general diet, without nausea by 12/24/19. 6. Andres will not have any skin breakdown or falls by 12/24/19. 1. Staff will round hourly on day shift and every two hours on night stocker to monitor and medicate appropriately. 2. Staff will monitor for signs of neuro vascular deficits every 4 hours and/or as ordered . 3. Staff will keep any drains below insertion site and free of kinks and patent, as well a s promoting hygiene and providing infection prevention education. 4. Staff will encourage frequent ambulation in halls and up in a chair for meals as approp riate to baseline. 5. Staff will monitor tolerance of diet, follow orders and advance to ordered diet. 6. Staff will encourage safe mobilization with assistance and the use of the call light sy stem, staff will encourage weight shifting every two hours and assist as needed. Problem: Fall Injury Risk Goal: Absence of Fall and Fall-Related Injury Outcome: Ongoing, progressing documented in this encounter Plan of Treatment +--------+---------+ + + + | Date | Type | Specialty | Care Team | Description | +--------+---------+ + + + | 03/17/ | Office | Orthopedic Surgery | Melquiades Baez | | 2019 | Visit | | DO [address] | | | | | | [place], | | | | | | [place] [address] | | | | | | [phone] | | | | | | | | +--------+---------+ + + + | 04/21/ | Office | Nephrology | Isaih Jade MD | | 2019 | Visit | | [address] [facility] | | | | | | [address] | | | | | | [address] | | | | | | | | +--------+---------+ + + + | 05/07/ | Office | Cardiology | Charlee Oswald | | | 2019 | Visit | | [address] | | | | | | [address] | | | | | | [place] [address] | | | | | | [phone] | | | | | | | [...] + +--------+ + + + | *TERMED* NC UPPER GI | Routin | 12/29/2019 | [...] | + +--------+ + + + | POINT OF CARE | Routin | 12/24/2019 | | | | | e | 12:14 PM [...] | + +--------+ + + + | NATHALIA Block ARM | Routin | 12/22/2019 | | Results [...] + +--------+ + + + | POC HAVEN CACERES8, | Routin | 12/22/2019 | | Results for this | | ARTERIAL | e | 8:47 AM | | procedure are in the | | | | PDT | | results section. | + +--------+ + + + | NAILING IM BETSY FEMUR | | 12/22/2019 | hip fx | | | - GAMMA NAIL | | 8:36 AM | | | | | | PDT | | | + +--------+ + + + +---+--------+ | | | | | Specia | | | l | | | Needs | | | Rep | | | notifi | | | ed by | | | Dr | | | Sasha | +---+--------+ + +--------+ +---+ + | POC MORRIS, HAVEN8, | Routin | 12/22/2019 | | Results for this | | VENOUS | e | 8:03 AM | | procedure are in the | | | | PDT | | results section. | + +--------+ +---+ + | TYPE AND SCREEN | STAT | 12/22/2019 | | Results for this | | | | 7:43 AM | | procedure are in the | | | | PDT | | results section. | + +--------+ +---+ + | POC GLUCOSE (NON | Routin | 12/22/2019 | | Results for this | | ORD) | e | 5:35 AM | | procedure are in the | | | | PDT | | results section. | + +--------+ +---+ + | PROTIME INR | Routin | 12/22/2019 | | Results for this | | | e | 5:26 AM | | procedure are in the | | | | PDT | | results section. | + +--------+ +---+ + | CBC WITH | Routin | 12/22/2019 | | Results for this | | DIFFERENTIAL | e | 5:26 AM | | procedure are in the | | | | PDT | | results section. | + +--------+ +---+ + | MAGNESIUM | Routin | 12/22/2019 | | Results for this | | | e | 5:26 AM | | procedure are in the | | | | PDT | | results section. | + +--------+ +---+ + | BASIC METABOLIC | Routin | 12/22/2019 | | Results for this | | PANEL | e | 5:26 AM | | procedure are in the | | | | PDT | | results section. | + +--------+ +---+ + | POC GLUCOSE (NON | Routin | 12/21/2019 | | Results for this | | ORD) | e | 11:43 PM | | procedure are in the | | | | PDT | | results section. | + +--------+ +---+ + | POC GLUCOSE (NON | Routin | 12/21/2019 | | Results for this | | ORD) | e | 9:11 PM | | procedure are in the | | | | PDT | | results section. | + +--------+ +---+ + documented in this encounter Results POC [...] | | | POC | performed at [facility];[address] | | LABORATORY | | | | [address];[place] | | | | | | [address] | | | | + + + + + + + + | Specimen | + + | | + + + + + + + | Performing | Address | City/State/Zipcode | Phone Number | | Organization | | | | + + + + + | [facility] | [address] | [place] [address] | [phone] | + + + + + POC Glucose (01/01/2020 6:29 AM PDT) + + + + + + | Component | Value | Ref Range | Performed | Pathologist | | | | | At | Signature | + + + + + + | Glucose, | 143 (H)Comment: Testing | 65 - 99 mg/dL | [facility] | | | POC | performed at [facility];[address] | | LABORATORY | | | | [address];[place] | | | | | | [address] | | | | + + + + + + + + | Specimen | + + | | + + + + + + + | Performing | Address | City/State/Zipcode | Phone Number | | Organization | | | | + + + + + | [facility] | [address] | [place] [address] | [phone] | + + + + + Basic [...] | 8.6 | 8.5 - 10.5 | [facility] | | | | | mg/dL | LABORATORY | | + + + + + + | Estimated | 23 (L)Comment: GFR <60: | >60 | [facility] | | | GFR | CHRONIC KIDNEY [...] | | | | | performed at [facility];[address] | | | | | | [facility];[place], [place] | | | | | | [address] | | | | + + + + + + + + | Specimen | + + | Blood | + + + + + + + | Performing | Address | City/State/Zipcode | Phone Number | | Organization | | | | + + + + + | [facility] | [address] | [place] [address] | [phone] | + + + + + CBC [...] + + + | Red Blood | 2.72 (L) | 4.20 - 5.70 | [facility] | | | Cells | | M/uL | LABORATORY | | [...] | | | Absolute | performed at [facility];[address] | K/uL | LABORATORY | | | | [address];[place] | | | | | | [address] | | | | + + + + + + + + | Specimen | + + | Blood | + + + + + + + | Performing | Address | City/State/Zipcode | Phone Number | | Organization | | | | + + + + + | [facility] | [address] | [place] [address] | [phone] | + + + + + POC [...] | | | POC | performed at [facility];[address] | | LABORATORY | | | | [address];[place] | | | | | | [address] | | | | + + + + + + + + | Specimen | + + | | + + + + + + + | Performing | Address | City/State/Zipcode | Phone Number | | Organization | | | | + + + + + | [facility] | [address] | [place] [address] | [phone] | + + + + + POC [...] | | | POC | performed at [facility];[address] | | LABORATORY | | | | [address];[place], [place] | | | | | | [address] | | | | + + + + + + + + | Specimen | + + | | + + + + + + + | Performing | Address | City/State/Zipcode | Phone Number | | Organization | | | | + + + + + | [facility] | [address] [facility] | [place] [address] | [phone] | + + + + + POC [...] | | | POC | performed at [facility];[address] | | LABORATORY | | | | [address];[place], [place] | | | | | | [address] | | | | + + + + + + + + | Specimen | + + | | + + + + + + + | Performing | Address | City/State/Zipcode | Phone Number | | Organization | | | | + + + + + | [facility] | [address] | [place] [address] | [phone] | + + + + + POC [...] | | | POC | performed at [facility];[address] | | LABORATORY | | | | [address];[place] | | | | | | [address] | | | | + + + + + + + + | Specimen | + + | | + + + + + + + | Performing | Address | City/State/Zipcode | Phone Number | | Organization | | | | + + + + + | [facility] | [address] | [place] [address] | [phone] | + + + + + Basic [...] | 8.5 | 8.5 - 10.5 | [facility] | | | | | mg/dL | LABORATORY | | + + + + + + | Estimated | 18 (L)Comment: GFR <60: | >60 | [facility] | | | GFR | CHRONIC KIDNEY [...] | | | | | performed at [facility], [address] | | | | | | [facility], | | | | | | [place] [address] | | | | + + + + + + + + | Specimen | + + | Blood | + + + + + + + | Performing | Address | City/State/Zipcode | Phone Number | | Organization | | | | + + + + + | [facility] | [address] | [place] [address] | [phone] | + + + + + CBC [...] + + + | Red Blood | 2.92 (L) | 4.20 - 5.70 | [facility] | | | Cells | | M/uL | LABORATORY | | [...] | | | Absolute | performed at [facility], [address] | K/uL | LABORATORY | | | | [address], | | | | | | [place] [address] | | | | + + + + + + + + | Specimen | + + | Blood | + + + + + + + | Performing | Address | City/State/Zipcode | Phone Number | | Organization | | | | + + + + + | [facility] | [address] [facility] | [place] [address] | [phone] | + + + + + POC Glucose (12/30/2019 8:55 PM PDT) + + + + + + | Component | Value | Ref Range | Performed | Pathologist | | | | | At | Signature | + + + + + + | Glucose, | 192 (H)Comment: Testing | 65 - 99 mg/dL | [facility] | | | POC | performed at [facility];[address] | | LABORATORY | | | | [address];[place] | | | | | | [address] | | | | + + + + + + + + | Specimen | + + | | + + + + + + + | Performing | Address | City/State/Zipcode | Phone Number | | Organization | | | | + + + + + | [facility] | [address] | [place] [address] | [phone] | + + + + + POC Glucose (12/30/2019 4:11 PM PDT) + + + + + + | Component | Value | Ref Range | Performed | Pathologist | | | | | At | Signature | + + + + + + | Glucose, | 130 (H)Comment: Testing | 65 - 99 mg/dL | [facility] | | | POC | performed at [facility];[address] | | LABORATORY | | | | [address];[place], [place] | | | | | | [address] | | | | + + + + + + + + | Specimen | + + | | + + + + + + + | Performing | Address | City/State/Zipcode | Phone Number | | Organization | | | | + + + + + | [facility] | [address] | [place] [address] | [phone] | + + + + + POC [...] | | | POC | performed at [facility];[address] | | LABORATORY | | | | [address];[place] | | | | | | [address] | | | | + + + + + + + + | Specimen | + + | | + + + + + + + | Performing | Address | City/State/Zipcode | Phone Number | | Organization | | | | + + + + + | [facility] | [address] | [place] [address] | [phone] | + + + + + Basic [...] 20 (L)Comment: GFR <60: | >60 | [facility] | | | GFR | CHRONIC KIDNEY [...] | | | | | | [facility] traceable | | | | | | equation.Testing | | | | | | performed at [facility];[address] | | | | | | [facility], [place] | | | | | | [address] | | | | + + + + + + + + | Specimen | + + | Blood | + + + + + + + | Performing | Address | City/State/Zipcode | Phone Number | | Organization | | | | + + + + + | [facility] | [address] [facility] | [place] [address] | [phone] | + + + + + POC [...] | | | POC | performed at [facility];[address] | | LABORATORY | | | | [address];[place], [place] | | | | | | [address] | | | | + + + + + + + + | Specimen | + + | | + + + + + + + | Performing | Address | City/State/Zipcode | Phone Number | | Organization | | | | + + + + + | [facility] | [address] | [place] [address] | [phone] | + + + + + CBC [...] + + + | Red Blood | 2.88 (L) | 4.20 - 5.70 | [facility] | | | Cells | | M/uL | LABORATORY | | [...] | | | Absolute | performed at [facility];[address] | K/uL | LABORATORY | | | | [address];[place] | | | | | | [address] | | | | + + + + + + + + | Specimen | + + | Blood | + + + + + + + | Performing | Address | City/State/Zipcode | Phone Number | | Organization | | | | + + + + + | [facility] | [address] | [place] [address] | [phone] | + + + + + POC [...] | | | POC | performed at [facility];[address] | | LABORATORY | | | | [address];[place] | | | | | | [address] | | | | + + + + + + + + | Specimen | + + | | + + + + + + + | Performing | Address | City/State/Zipcode | Phone Number | | Organization | | | | + + + + + | [facility] | [address] | [place] [address] | [phone] | + + + + + Hemoglobin [...] Testing | 39.0 - 50.0 % | [facility] | | | | performed at [facility];[address] | | LABORATORY | | | | [address];[place] | | | | | | [address] | | | | + + + + + + + + | Specimen | + + | Blood | + + + + + + + | Performing | Address | City/State/Zipcode | Phone Number | | Organization | | | | + + + + + | [facility] | [address] | [place] [address] | [phone] | + + + + + POC [...] | | | POC | performed at [facility];[address] | | LABORATORY | | | | [address];[place], [place] | | | | | | [address] | | | | + + + + + + + + | Specimen | + + | | + + + + + + + | Performing | Address | City/State/Zipcode | Phone Number | | Organization | | | | + + + + + | [facility] | [address] | [place] [address] | [phone] | + + + + + Hemoglobin [...] Testing | 39.0 - 50.0 % | [facility] | | | | performed at [facility];[address] | | LABORATORY | | | | [address];[place] | | | | | | [address] | | | | + + + + + + + + | Specimen | + + | Blood | + + + + + + + | Performing | Address | City/State/Zipcode | Phone Number | | Organization | | | | + + + + + | [facility] | [address] | [place] [address] | [phone] | + + + + + POC [...] | | | POC | performed at [facility];[address] | | LABORATORY | | | | [address];[place], [place] | | | | | | [address] | | | | + + + + + + + + | Specimen | + + | | + + + + + + + | Performing | Address | City/State/Zipcode | Phone Number | | Organization | | | | + + + + + | [facility] | [address] | [place] [address] | [phone] | + + + + + POC Glucose (12/29/2019 11:06 AM PDT) + + + + + + | Component | Value | Ref Range | Performed | Pathologist | | | | | At | Signature | + + + + + + | Glucose, | 205 (H)Comment: Testing | 65 - 99 mg/dL | [facility] | | | POC | performed at [facility];[address] | | LABORATORY | | | | [address];[place] | | | | | | [address] | | | | + + + + + + + + | Specimen | + + | | + + + + + + + | Performing | Address | City/State/Zipcode | Phone Number | | Organization | | | | + + + + + | [facility] | [address] | [place] [address] | [phone] | + + + + + Surgical [...] | | technical component was performed by [facility], [address] [place] [address] | | | [place] [address] (Wearing Apparel Assembler: Padmini Sellers MD; CLIA# | | | [id number]). Professional interpretation was performed by[facility] | | | [facility], [address], | | | [place] [address] (Wearing Apparel Assembler: Oscar Maynard M.D.; CLIA#: | | | [id number]). Diagnostician: Padmini Sellers | | | MDPathologistElectronically [...] | |The technical component was performed by [facility], [address] [place] [address] (Wearing Apparel Assembler: Padmini Sellers MD; CLIA# [id number]). Professional interpretation was performed by | | |[facility], [address] [address] (Wearing Apparel Assembler: Oscar Maynard M.D.; CLIA#: [id number]). | | | | | |Diagnostician: Padmini [...] Performed At | + + + | [facility] | [facility] | | [facility] | PROVATION | | CenterGastroenterology | | | Patient Name: Andres Guzmán | | | Procedure Date: 12/29/2019 8:36 AMMRN: [id number] | | | of : 1930 | | | Note Status: FinalizedAttending MD: LAMONT HERNANDEZ , | | | MD | | | | | | Procedure Type: Upper GI | | | endoscopyIndications: MelenaReferring MD: | | | Kb Allen MdMedicines: [...] the anesthesiologist and the | | | telecommunications field technician in the pre-procedure area in the [...] | | | with Gold probe 7 Sammarinese x 5 pulses was successful with | [...] | | | AMNumber of Addenda: 0 [facility] | | | - Check hemoglobin q 6 hours for one day. | | | | | | | | |LAMONT HERNANDEZ MD | | |12/29/2019 10:19:54 AM | | |This report has been signed electronically. | | | | | |Note Initiated On: 12/29/2019 8:36 AM | | |Number of Addenda: 0 | | | | | | [facility] | | + + + + +---------+ [...] [facility] | | | | performed at [facility];888 | | LABORATORY | | | | Rosalia Mccain;[place] | | | | | | [address] | | | | + + + + + + + + | Specimen | + + | Blood | + + + + + + + | Performing | Address | City/State/Zipcode | Phone Number | | Organization | | | | + + + + + | [facility] | [address] | [place] [address] | [phone] | + + + + + POC Glucose (12/29/2019 6:06 AM PDT) + + + + + + | Component | Value | Ref Range | Performed | Pathologist | | | | | At | Signature | + + + + + + | Glucose, | 146 (H)Comment: Testing | 65 - 99 mg/dL | [facility] | | | POC | performed at [facility];888 | | LABORATORY | | | | Rosalia Mccain;[place] | | | | | | [address] | | | | + + + + + + + + | Specimen | + + | | + + + + + + + | Performing | Address | City/State/Zipcode | Phone Number | | Organization | | | | + + + + + | [facility] | [address] | [place] [address] | [phone] | + + + + + CBC [...] + + + | Red Blood | 2.84 (L) | 4.20 - 5.70 | [facility] | | | Cells | | M/uL | LABORATORY | | [...] | | | Absolute | performed at [facility];[address] | K/uL | LABORATORY | | | | Rosalia Mccain;[place] | | | | | | [address] | | | | + + + + + + + + | Specimen | + + | Blood | + + + + + + + | Performing | Address | City/State/Zipcode | Phone Number | | Organization | | | | + + + + + | [facility] | [address] | [place] [address] | [phone] | + + + + + Shine ORTEGA (12/29/2019 3:53 AM PDT) + + + + + + | Component | Value | Ref Range | Performed | Pathologist | | | | | At | Signature | + + + + + + | INR | 1.3Comment: REFERENCE | | ALEX | | | | RANGE:0.9 - 1.2 [...] | | | | | performed at [facility];[address] | | | | | | Rosalia [facility];[place], [place] | | | | | | [address] | | | | + + + + + + + + | Specimen | + + | Blood | + + + + + + + | Performing | Address | City/State/Zipcode | Phone Number | | Organization | | | | + + + + + | [facility] | [address] | [place] [address] | [phone] | + + + + + Basic [...] | 8.7 | 8.5 - 10.5 | [facility] | | | | | mg/dL | LABORATORY | | + + + + + + | Estimated | 20 (L)Comment: GFR <60: | >60 | [facility] [...] | | | | | performed at [facility];888 | | | | | | [facility];[place], [place] | | | | | | [address] | | | | + + + + + + + + | Specimen | + + | Blood | + + + + + + + | Performing | Address | City/State/Zipcode | Phone Number | | Organization | | | | + + + + + | [facility] | [address] [facility] | [place] [address] | [phone] | + + + + + POC [...] | | | POC | performed at [facility];[address] | | LABORATORY | | | | Rosalia Mccain;[place], [place] | | | | | | [address] | | | | + + + + + + + + | Specimen | + + | | + + + + + + + | Performing | Address | City/State/Zipcode | Phone Number | | Organization | | | | + + + + + | [facility] | [address] | [place] [address] | [phone] | + + + + + Hemoglobin and Hematocrit (12/28/2019 10:33 PM PDT) + + + + + + | Component | Value | Ref Range | Performed | Pathologist | | | | | At | Signature | + + + + + + | Hemoglobin | 9.1 (L) | 13.2 - 17.0 | [facility] | | | | | g/dL | LABORATORY | | + + + + + + | Hematocrit | 26.6 (L)Comment: Testing | 39.0 - 50.0 % | [facility] | | | | performed at [facility];[address] | | LABORATORY | | | | Rosalia Mccain;[place] | | | | | | [address] | | | | + + + + + + + + | Specimen | + + | Blood | + + + + + + + | Performing | Address | City/State/Zipcode | Phone Number | | Organization | | | | + + + + + | [facility] | [address] | [place] [address] | [phone] | + + + + + POC [...] | | | POC | performed at [facility];888 | | LABORATORY | | | | Rosalia Mccain;[place] | | | | | | [address] | | | | + + + + + + + + | Specimen | + + | | + + + + + + + | Performing | Address | City/State/Zipcode | Phone Number | | Organization | | | | + + + + + | [facility] | [address] | [place] [address] | [phone] | + + + + + Fecal Hemoglobin (12/28/2019 7:20 PM PDT) + + + + + + | Component | Value | Ref Range | Performed | Pathologist | | | | | At | Signature | + + + + + + | FECAL | POSITIVE (A)Comment: | NEG | [facility] | | | OCCULT BLD | Testing performed at | | LABORATORY | | | | [facility];[address];[place] [address] | | | | + + + + + + + + | Specimen | + + | Stool - Stool | | specimen (specimen) | + + + + + + + | Performing | Address | City/State/Zipcode | Phone Number | | Organization | | | | + + + + + | [facility] | [address] | [place] [address] | [phone] | + + + + + POC Glucose (12/28/2019 4:32 PM PDT) + + + + + + | Component | Value | Ref Range | Performed | Pathologist | | | | | At | Signature | + + + + + + | Glucose, | 124 (H)Comment: Testing | 65 - 99 mg/dL | [facility] | | | POC | performed at [facility];[address] | | LABORATORY | | | | Rosalia Mccain;[place] | | | | | | [address] | | | | + + + + + + + + | Specimen | + + | | + + + + + + + | Performing | Address | City/State/Zipcode | Phone Number | | Organization | | | | + + + + + | [facility] | [address] | [place] [address] | [phone] | + + + + + Hemoglobin [...] [facility] | | | | performed at [facility];[address] | | LABORATORY | | | | [address];[place] | | | | | | [address] | | | | + + + + + + + + | Specimen | + + | Blood | + + + + + + + | Performing | Address | City/State/Zipcode | Phone Number | | Organization | | | | + + + + + | [facility] | [address] | [place] [address] | [phone] | + + + + + POC Glucose (12/28/2019 11:59 AM PDT) + + + + + + | Component | Value | Ref Range | Performed | Pathologist | | | | | At | Signature | + + + + + + | Glucose, | 163 (H)Comment: Testing | 65 - 99 mg/dL | [facility] | | | POC | performed at [facility];[address] | | LABORATORY | | | | Rosalia Mccain;[place] | | | | | | [address] | | | | + + + + + + + + | Specimen | + + | | + + + + + + + | Performing | Address | City/State/Zipcode | Phone Number | | Organization | | | | + + + + + | [facility] | [address] | [place] [address] | [phone] | + + + + + POC [...] | | | POC | performed at [facility];[address] | | LABORATORY | | | | [address];[place], [place] | | | | | | [address] | | | | + + + + + + + + | Specimen | + + | | + + + + + + + | Performing | Address | City/State/Zipcode | Phone Number | | Organization | | | | + + + + + | [facility] | [address] | [place] [address] | [phone] | + + + + + CBC [...] + + + | Red Blood | 3.14 (L) | 4.20 - 5.70 | [facility] | | | Cells | | M/uL | LABORATORY | | [...] | | | Absolute | performed at [facility], [address] | K/uL | LABORATORY | | | | [address]cc[address], | | | | | | [place] [address] | | | | + + + + + + + + | Specimen | + + | Blood | + + + + + + + | Performing | Address | City/State/Zipcode | Phone Number | | Organization | | | | + + + + + | [facility] | [address] | [place] [address] | [phone] | + + + + + Basic [...] | | | | | performed at [facility], [address] | | | | | | [facility], | | | | | | [place] [address] | | | | + + + + + + + + | Specimen | + + | Blood | + + + + + + + | Performing | Address | City/State/Zipcode | Phone Number | | Organization | | | | + + + + + | [facility] | [address] | [place] [address] | [phone] | + + + + + POC [...] | | | POC | performed at [facility];[address] | | LABORATORY | | | | [address];[place], [place] | | | | | | [address] | | | | + + + + + + + + | Specimen | + + | | + + + + + + + | Performing | Address | City/State/Zipcode | Phone Number | | Organization | | | | + + + + + | [facility] | [address] | [place] [address] | [phone] | + + + + + POC [...] | | | POC | performed at [facility];[address] | | LABORATORY | | | | [address];[place] | | | | | | [address] | | | | + + + + + + + + | Specimen | + + | | + + + + + + + | Performing | Address | City/State/Zipcode | Phone Number | | Organization | | | | + + + + + | [facility] | [address] | [place] [address] | [phone] | + + + + + Red [...] BANK | Testing performed at | | [facility] | | | COMMENT | [facility];[address] | LABORATORY | | | | [address];[place] [address] | | | | + + + + + + + + | Specimen | + + | | + + + + + + + | Performing | Address | City/State/Zipcode | Phone Number | | Organization | | | | + + + + + | [facility] | [address] | [place] [address] | [phone] | + + + + + Type [...] + + + | BB BAND | [id number] | | [facility] | | | | | | LABORATORY | | + + + + + + | UNIT # | [id number] | | [facility] | | | | [...] + + + | UNIT # | [id number] | | [facility] | | | | [...] + | CROSSMATCH | COMPATIBLETesting | | [facility] | | | RESULT | performed at [facility];[address] | | LABORATORY | | | | [address]ccain;[place], [place] | | | | | | [address] | | | | + + + + + + + + | Specimen | + + | Blood | + + + + + + + | Performing | Address | City/State/Zipcode | Phone Number | | Organization | | | | + + + + + | [facility] | [address] | [place] [address] | [phone] | + + + + + POC [...] | | | POC | performed at [facility];[address] | | LABORATORY | | | | Rosalia Mccain;[place], [place] | | | | | | [address] | | | | + + + + + + + + | Specimen | + + | | + + + + + + + | Performing | Address | City/State/Zipcode | Phone Number | | Organization | | | | + + + + + | [facility] | [address] | [place] [address] | [phone] | + + + + + CBC [...] + + + | Red Blood | 2.37 (L) | 4.20 - 5.70 | [facility] | | | Cells | | M/uL | LABORATORY | | [...] 0.02Comment: Testing | 0.00 - 0.10 | [facility] | | | Absolute | performed at [facility], [address] | K/uL | LABORATORY | | | | [address], | | | | | | [place] [address] | | | | + + + + + + + + | Specimen | + + | | + + + + + + + | Performing | Address | City/State/Zipcode | Phone Number | | Organization | | | | + + + + + | [facility] | [address] | [place] [address] | [phone] | + + + + + Procalcitonin (12/27/2019 5:04 AM PDT) + + + + + + | Component | Value | Ref Range | Performed | Pathologist | | | | | At | Signature | + + + + + + | PROCALCITON | 0.41Comment: | <0.5 ng/mL | [facility] | | [...] | | | | | | at [facility];[address] [place] [address] | | | | | | [facility];[place] [address] | | | | + + + + + + + + | Specimen | + + | Blood | + + + + + + + | Performing | Address | City/State/Zipcode | Phone Number | | Organization | | | | + + + + + | [facility] | [address] | [place] [address] | [phone] | + + + + + Basic [...] 13 (L)Comment: GFR <60: | >60 | [facility] [...] | | | | | | [facility]D [facility] traceable | | | | | | equation.Testing | | | | | | performed at [facility], [address] | | | | | | [facility], | | | | | | [place] [address] | | | | + + + + + + + + | Specimen | + + | Blood | + + + + + + + | Performing | Address | City/State/Zipcode | Phone Number | | Organization | | | | + + + + + | [facility] | [address] | [place] [address] | [phone] | + + + + + Vitamin D, Deficiency Screen (25-Hydroxy) (12/27/2019 5:04 AM PDT) + + + + + + | Component | Value | Ref Range | Performed | Pathologist | | | | | At | Signature | + + + + + + | Vit D, | 25.2 (L)Comment: Vitamin | 30.0 - 100.0 | [facility] | | | 25-Hydroxy | D deficiency has been | ng/mL | LABORATORY | | | | defined by the [place] | | | | | | of[facility] and an | | | | | [...] IOM | | | | | | ([place] of [employer]). | | | | | | 2009. Dietary reference | | | | | | intakes for calcium | | | | | | and DClaudy Cedeno [place]: | | | | | | The National Academies | | | | | | Press.2. Hernan MF, | | | | | | Sushil GIRON, | | | | | | Tir DUKES et | | | | | | [...] | | | | | performed at [facility] [employer] [facility], | | | | | | [address], | | | | | | [facility] [address] | | | | + + + + + + + + | Specimen | + + | Blood | + + + + + + + | Performing | Address | City/State/Zipcode | Phone Number | | Organization | | | | + + + + + | [facility] | [address] | [place] [address] | [phone] | + + + + + Potassium (12/27/2019 12:08 AM PDT) + + + + + + | Component | Value | Ref Range | Performed | Pathologist | | | | | At | Signature | + + + + + + | K | 4.0Comment: Testing | 3.5 - 4.9 | [facility] | | | | performed at [facility];[address] | mmol/L | LABORATORY | | | | [address];[place] | | | | | | [address] | | | | + + + + + + + + | Specimen | + + | Blood | + + + + + + + | Performing | Address | City/State/Zipcode | Phone Number | | Organization | | | | + + + + + | [facility] | [address] | [place] [address] | [phone] | + + + + + Magnesium (12/27/2019 12:08 AM PDT) + + + + + + | Component | Value | Ref Range | Performed | Pathologist | | | | | At | Signature | + + + + + + | Magnesium | 2.2Comment: Testing | 1.7 - 2.4 mg/dL | [facility] | | | | performed at [facility];[address] | | LABORATORY | | | | [address]alia Mccain;[place] | | | | | | [address] | | | | + + + + + + + + | Specimen | + + | Blood | + + + + + + + | Performing | Address | City/State/Zipcode | Phone Number | | Organization | | | | + + + + + | [facility] | [address] | [place] [address] | [phone] | + + + + + ECG [...] | | | | | YANIV ROONEY ([id number]) | | | | | | on [...] | | | POC | performed at [facility];[address] | | LABORATORY | | | | Rosalia Mccain;[place] | | | | | | [address] | | | | + + + + + + + + | Specimen | + + | | + + + + + + + | Performing | Address | City/State/Zipcode | Phone Number | | Organization | | | | + + + + + | [facility] | [address] | [place] [address] | [phone] | + + + + + POC Glucose (12/26/2019 5:02 PM PDT) + + + + + + | Component | Value | Ref Range | Performed | Pathologist | | | | | At | Signature | + + + + + + | Glucose, | 154 (H)Comment: Testing | 65 - 99 mg/dL | [facility] | | | POC | performed at [facility];[address] | | LABORATORY | | | | [address]alia [address]ccain;[place], [place] | | | | | | [address] | | | | + + + + + + + + | Specimen | + + | | + + + + + + + | Performing | Address | City/State/Zipcode | Phone Number | | Organization | | | | + + + + + | [facility] | [address] | [place] [address] | [phone] | + + + + + Complement C4 Ag (12/26/2019 12:33 PM PDT) + + + + + + | Component | Value | Ref Range | Performed | Pathologist | | | | | At | Signature | + + + + + + | C4 | 15Comment: Testing | 14 - 44 mg/dL | [facility] | | | COMPLEMENT | performed at [facility] [employer] [facility] [facility], | | LABORATORY | | | | [address], | | | | | | [place] [address] | | | | + + + + + + + + | Specimen | + + | | + + + + + + + | Performing | Address | City/State/Zipcode | Phone Number | | Organization | | | | + + + + + | [facility] | [address] | [place] [address] | [phone] | + + + + + Complement C3 Ag (12/26/2019 12:33 PM PDT) + + + + + + | Component | Value | Ref Range | Performed | Pathologist | | | | | At | Signature | + + + + + + | C3 | 53 (L)Comment: Testing | 82 - 167 mg/dL | [facility] | | | COMPLEMENT | performed at [facility] [employer], | | LABORATORY | | | | [address], | | | | | | [facility] [address] | | | | + + + + + + + + | Specimen | + + | | + + + + + + + | Performing | Address | City/State/Zipcode | Phone Number | | Organization | | | | + + + + + | [facility] | [address] | [place] [address] | [phone] | + + + + + POC Glucose (12/26/2019 11:15 AM PDT) + + + + + + | Component | Value | Ref Range | Performed | Pathologist | | | | | At | Signature | + + + + + + | Glucose, | 161 (H)Comment: Testing | 65 - 99 mg/dL | [facility] | | | POC | performed at [facility];[address] | | LABORATORY | | | | [address];[place], [place] | | | | | | [address] | | | | + + + + + + + + | Specimen | + + | | + + + + + + + | Performing | Address | City/State/Zipcode | Phone Number | | Organization | | | | + + + + + | [facility] | [address] | [place] [address] | [phone] | + + + + + POC [...] | | | POC | performed at [facility];[address] | | LABORATORY | | | | [address];[place], [place] | | | | | | [address] | | | | + + + + + + + + | Specimen | + + | | + + + + + + + | Performing | Address | City/State/Zipcode | Phone Number | | Organization | | | | + + + + + | [facility] | [address] | [place] [address] | [phone] | + + + + + Parathyroid Hormone, Intraoperative (12/26/2019 4:25 AM PDT) + + + + + + | Component | Value | Ref Range | Performed | Pathologist | | | | | At | Signature | + + + + + + | PTH Intact | 167.0 (H)Comment: | 8.7 - 79.6 | [facility] | | | | Testing performed at | pg/mL | LABORATORY | | | | [facility];[address] | | | [address];[place] [address] | | | | + + + + + + + + | Specimen | + + | | + + + + + + + | Performing | Address | City/State/Zipcode | Phone Number | | Organization | | | | + + + + + | [facility] | [address] | [place] [address] | [phone] | + + + + + Renal [...] 13 (L)Comment: GFR <60: | >60 | [facility] | | | GFR | CHRONIC KIDNEY [...] | | | | | performed at [facility], [address] | | | | | | [facility], | | | | | | [place] [address] | | | | + + + + + + + + | Specimen | + + | Blood | + + + + + + + | Performing | Address | City/State/Zipcode | Phone Number | | Organization | | | | + + + + + | [facility] | [address] | [place] [address] | [phone] | + + + + + POC Glucose (12/25/2019 8:53 PM PDT) + + + + + + | Component | Value | Ref Range | Performed | Pathologist | | | | | At | Signature | + + + + + + | Glucose, | 169 (H)Comment: Testing | 65 - 99 mg/dL | [facility] | | | POC | performed at [facility];[address] | | LABORATORY | | | | [address]cc[address];[place] | | | | | | [address] | | | | + + + + + + + + | Specimen | + + | | + + + + + + + | Performing | Address | City/State/Zipcode | Phone Number | | Organization | | | | + + + + + | [facility] | [address] | [place] [address] | [phone] | + + + + + POC Glucose (12/25/2019 5:13 PM PDT) + + + + + + | Component | Value | Ref Range | Performed | Pathologist | | | | | At | Signature | + + + + + + | Glucose, | 133 (H)Comment: Testing | 65 - 99 mg/dL | [facility] | | | POC | performed at [facility];[address] | | LABORATORY | | | | [address];[place] | | | | | | [address] | | | | + + + + + + + + | Specimen | + + | | + + + + + + + | Performing | Address | City/State/Zipcode | Phone Number | | Organization | | | | + + + + + | [facility] | [address] | [place] [address] | [phone] | + + + + + ECHO [...] | | | POC | performed at [facility];[address] | | LABORATORY | | | | [address];[place], [place] | | | | | | [address] | | | | + + + + + + + + | Specimen | + + | | + + + + + + + | Performing | Address | City/State/Zipcode | Phone Number | | Organization | | | | + + + + + | [facility] | [address] | [place] [address] | [phone] | + + + + + POC [...] | | | POC | performed at [facility];[address] | | LABORATORY | | | | [address];[place] | | | | | | [address] | | | | + + + + + + + + | Specimen | + + | | + + + + + + + | Performing | Address | City/State/Zipcode | Phone Number | | Organization | | | | + + + + + | [facility] | [address] | [place] [address] | [phone] | + + + + + CK Total (12/25/2019 4:25 AM PDT) + + + + + + | Component | Value | Ref Range | Performed | Pathologist | | | | | At | Signature | + + + + + + | CK TOTAL | 104Comment: Testing | 55 - 400 U/L | [facility] | | | | performed at [facility];[address] | | LABORATORY | | | | [address];[place] | | | | | | [address] | | | | + + + + + + + + | Specimen | + + | Blood | + + + + + + + | Performing | Address | City/State/Zipcode | Phone Number | | Organization | | | | + + + + + | [facility] | [address] | [place] [address] | [phone] | + + + + + Renal [...] (L) | 3.3 - 4.8 g/dL | [facility] | | | | | | LABORATORY | | + + + + + + | Phosphorus | 6.4 (H) | 2.3 - 4.8 mg/dL | [facility] | | | | | | LABORATORY | | + + + + + + | Estimated | 13 (L)Comment: GFR <60: | >60 | [facility] | | | GFR | CHRONIC KIDNEY [...] | | | | | performed at [facility], [address] | | | | | [facility], | | | | | | [place] [address] | | | | + + + + + + + + | Specimen | + + | Blood | + + + + + + + | Performing | Address | City/State/Zipcode | Phone Number | | Organization | | | | + + + + + | [facility] | [address] | [place] [address] | [phone] | + + + + + Cytoplasmic [...] | | | | | with both NC-3 and | | | | | | [...] Neg:<1:20 titer | [facility] | | | pANCA | atypical pANCA [...] | | | | | performed by [facility], | | | | | | [address] [facility], | | | | | | [facility] [address] | | | | + + + + + + + + | Specimen | + + | Blood | + + + + + + + | Performing | Address | City/State/Zipcode | Phone Number | | Organization | | | | + + + + + | [facility] | [address] | [place] [address] | [phone] | + + + + + Sedimentation Rate (12/25/2019 4:22 AM PDT) + + + + + + | Component | Value | Ref Range | Performed | Pathologist | | | | | At | Signature | + + + + + + | ESR | 6Comment: Testing | 0 - 20 mm/Hr | [facility] | | | | performed at [facility], [address] | | LABORATORY | | | | [address], | | | | | | [place] [address] | | | | + + + + + + + + | Specimen | + + | Blood | + + + + + + + | Performing | Address | City/State/Zipcode | Phone Number | | Organization | | | | + + + + + | [facility] | [address] | [place] [address] | [phone] | + + + + + Immunoglobulin, Free Light Chain (12/25/2019 4:22 AM PDT) + + + + + + | Component | Value | Ref Range | Performed | Pathologist | | | | | At | Signature | + + + + + + | [place] Free | 121.2 (H) | 3.3 - [...] + + + + + + | [place]d | 1.25Comment: Testing | 0.26 - 1.65 | [facility] | | | a Free | performed at [facility] | | LABORATORY | | | Light Chain | [place], [address] | | | | | Ratio | [place] [address] | | | | + + + + + + + + | Specimen | + + | Blood | + + + + + + + | Performing | Address | City/State/Zipcode | Phone Number | | Organization | | | | + + + + + | [facility] | [address] | [place] [address] | [phone] | + + + + + Glomerular [...] by | | | | | | [facility], [address] | | | | | | [place] | | | | | | [address] | | | | + + + + + + + + | Specimen | + + | Blood | + + + + + + + | Performing | Address | City/State/Zipcode | Phone Number | | Organization | | | | + + + + + | [facility] | [address] | [place] [address] | [phone] | + + + + + Hepatitis [...] <0.1Comment: | 0.0 - 0.9 s/co | [facility] | | | | | ratio | [...] | | | | | | 0.9The [facility] recommends | | | | | | that a positive HCV | | | | | | antibody resultbe | | | | | | followed up with a HCV | | | | | | Nucleic Acid | | | | | | Amplificationtest | | | | | | ([id number]).Testing | | | | | | performed at [employer], | | | | | | [address], | | | | | | [facility] [address] | | | | + + + + + + + + | Specimen | + + | Blood | + + + + + + + | Performing | Address | City/State/Zipcode | Phone Number | | Organization | | | | + + + + + | [facility] | [address] | [place] [address] | [phone] | + + + + + CK Total (12/25/2019 4:22 AM PDT) + + + + + + | Component | Value | Ref Range | Performed | Pathologist | | | | | At | Signature | + + + + + + | CK TOTAL | 100Comment: Testing | 55 - 400 U/L | [facility] | | | | performed at [facility];[address] | | LABORATORY | | | | [address];[place], [place] | | | | | | [address] | | | | + + + + + + + + | Specimen | + + | Blood | + + + + + + + | Performing | Address | City/State/Zipcode | Phone Number | | Organization | | | | + + + + + | [facility] | [address] | [place] [address] | [phone] | + + + + + Lactate Dehydrogenase (12/25/2019 4:22 AM PDT) + + + + + + | Component | Value | Ref Range | Performed | Pathologist | | | | | At | Signature | + + + + + + | LDH TOTAL | 154Comment: Testing | 120 - 246 U/L | [facility] | | | | performed at [facility];[address] | | LABORATORY | | | | [address];[place] | | | | | | [address] | | | | + + + + + + + + | Specimen | + + | Blood | + + + + + + + | Performing | Address | City/State/Zipcode | Phone Number | | Organization | | | | + + + + + | [facility] | [address] | [place] [address] | [phone] | + + + + + Magnesium (12/25/2019 4:22 AM PDT) + + + + + + | Component | Value | Ref Range | Performed | Pathologist | | | | | At | Signature | + + + + + + | Magnesium | 2.5 (H)Comment: Testing | 1.7 - 2.4 mg/dL | [facility] | | | | performed at [facility], [address] | | LABORATORY | | | | [address], | | | | | | [place] [address] | | | | + + + + + + + + | Specimen | + + | Blood | + + + + + + + | Performing | Address | City/State/Zipcode | Phone Number | | Organization | | | | + + + + + | [facility] | [address] | [place] [address] | [phone] | + + + + + Protein, Urine, Random (12/25/2019 12:01 AM PDT) + + + + + + | Component | Value | Ref Range | Performed | Pathologist | | | | | At | Signature | + + + + + + | Protein, | 131Comment: NO NORMAL | mg/dL | [facility] | | | Urine | [facility]ABLISHEDTesting | | LABORATORY | | | | performed at [facility], [address] | | | | | [address], | | | | | | [place] [address] | | | | + + + + + + + + | Specimen | + + | | + + + + + + + | Performing | Address | City/State/Zipcode | Phone Number | | Organization | | | | + + + + + | [facility] | [address] | [place] [address] | [phone] | + + + + + Creatinine, Urine, Random (12/25/2019 12:01 AM PDT) + + + + + + | Component | Value | Ref Range | Performed | Pathologist | | | | | At | Signature | + + + + + + | Creatinine, | 139.0Comment: NO NORMAL | mg/dL | [facility] | | | random | [facility] ESTABLISHEDTesting | | LABORATORY | | | urine | performed at [facility], [address] | | | | | | [address], | | | | | | [place] [address] | | | | + + + + + + + + | Specimen | + + | | + + + + + + + | Performing | Address | City/State/Zipcode | Phone Number | | Organization | | | | + + + + + | [facility] | [address] | [place] [address] | [phone] | + + + + + Protein/Creatinine Ratio, Urine (12/25/2019 12:01 AM PDT) + + + + + + | Component | Value | Ref Range | Performed | Pathologist | | | | | At | Signature | + + + + + + | PRO/CREA | 0.942Comment: Testing | | [facility] | | | RATIO,URINE | performed at [facility], [address] | | LABORATORY | | | | [address], | | | | | | [place] [address] | | | | + + + + + + + + | Specimen | + + | Urine | + + + + + + + | Performing | Address | City/State/Zipcode | Phone Number | | Organization | | | | + + + + + | [facility] | [address] | [place] [address] | [phone] | + + + + + POC [...] | | | POC | performed at [facility];[address] | | LABORATORY | | | | [address];[place], [place] | | | | | | [address] | | | | + + + + + + + + | Specimen | + + | | + + + + + + + | Performing | Address | City/State/Zipcode | Phone Number | | Organization | | | | + + + + + | [facility] | [address] | [place] [address] | [phone] | + + + + + POC [...] | | | POC | performed at [facility];[address] | | LABORATORY | | | | [address];[place], [place] | | | | | | [address] | | | | + + + + + + + + | Specimen | + + | | + + + + + + + | Performing | Address | City/State/Zipcode | Phone Number | | Organization | | | | + + + + + | [facility] | [address] | [place] [address] | [phone] | + + + + + ECG [...] + + | Kobe, Rad Results In 12/24/2019 3:24 PM PDT | | CHEST [...] | | | | | | determined byAbbott, it | | | | | | [...] | | | Arterial, | performed at [facility];[address] | | LABORATORY | | | POC | [address];[place], [place] | | | | | | [address] | | | | + + + + + + + + | Specimen | + + | | + + + + + + + | Performing | Address | City/State/Zipcode | Phone Number | | Organization | | | | + + + + + | [facility] | [address] | [place] [address] | [phone] | + + + + + Coronavirus (COVID-19) NAAT (12/24/2019 1:10 PM PDT) + + + + + + | Component | Value | Ref Range | Performed | Pathologist | | | | | At | Signature | + + + + + + | SARS-CoV-2, | NEGATIVEComment: Testing | NEG | [facility] | | | NAAT | performed at [facility];[address] | | LABORATORY | | | (COVID-19) | [address];[place] | | | | | | [address] | | | | + + + + + + + + | Specimen | + + | Tissue - Entire | | nasopharynx (body | | structure) | + + + + + + + | Performing | Address | City/State/Zipcode | Phone Number | | Organization | | | | + + + + + | [facility] | [address] | [place] [address] | [phone] | + + + + + Culture, [...] | | LABORATORY | | | | Blvd;[place] [address] | | | | + + + + + + | RESULT | NO GROWTH 6 DAYS | | [facility] | | | | | | LABORATORY | | + + + + + + | RESULT | Testing performed at | | [facility] | | | | T[facility], [address] | | LABORATORY | | | | [place], [place] | | | | | | [id number]: Testing | | | | | | performed at [facility], [address] | | | | | | [address], [place], [place] | | | | | | [address] | | | | + + + + + + + + | Specimen | + + | Blood - Peripheral | | blood specimen | | (specimen) | + + + + + + + | Performing | Address | City/State/Zipcode | Phone Number | | Organization | | | | + + + + + | [facility] | [address] | [place] [address] | [phone] | + + + + + Culture, [...] | [facility] | | | Requests | [facility];[address] | | LABORATORY | | | | Bl[address];[place] [address] | | | | + + + + + + | RESULT | NO GROWTH 6 DAYS | | [facility] | | | | | | LABORATORY | | + + + + + + | RESULT | Testing performed at | | [facility] | | | | TCL, [address] | | LABORATORY | | | | [place], [place] | | | | | | [id number]: Testing | | | | | | performed at [facility], [address] | | | | | [address], [place], [place] | | | | | | [address] | | | | + + + [...] [facility] | [address] | [place] [address] | [phone] | + + + + + Urinalysis [...] + + + + + | Clarity, | CLEAR | | [facility] | | | Urine | | | LABORATORY | | + + + + + + | Specific | 1.012 | 1.002 - 1.030 | [facility] | | | [place], | | | LABORATORY | | | [...] | 1+ (A)Comment: Testing | NONE | [facility] | | | Urine | performed at [facility], [address] | | LABORATORY | | | | [address], | | | | | | [place] [address] | | | | + + + [...] | + + + + + | [facility] | [address] | [place] [address] | [phone] | + + + + + Sodium, Urine, Random (12/24/2019 12:45 PM PDT) + + + + + + | Component | Value | Ref Range | Performed | Pathologist | | | | | At | Signature | + + + + + + | Sodium, | 52Comment: NO NORMAL | mmol/L | [facility] | | | Random | [facility]LISHEDTesting | | LABORATORY | | | urine | performed at [facility], [address] | | | | | | [address], | | | | | | [place] [address] | | | | + + + [...] | + + + + + | [facility] | [address] | [place] [address] | [phone] | + + + + + Creatinine, Urine, Random (12/24/2019 12:45 PM PDT) + + + + + + | Component | Value | Ref Range | Performed | Pathologist | | | | | At | Signature | + + + + + + | Creatinine, | 70.0Comment: NO NORMAL | mg/dL | [facility] | | | random | [facility]LISHEDTesting | | LABORATORY | | | urine | performed at [facility], [address] | | | | | | [address], | | | | | | [place] [address] | | | | + + + [...] | + + + + + | [facility] | [address] | [place] [address] | [phone] | + + + + + Lactic Acid (12/24/2019 12:27 PM PDT) + + + + + + | Component | Value | Ref Range | Performed | Pathologist | | | | | At | Signature | + + + + + + | Lactate, | 1.6Comment: Testing | 0.4 - 2.0 | [facility] | | | Serum | performed at [facility];888 | mmol/L | LABORATORY | | | | [address];[place], [place] | | | | | | [address] | | | | + + + + + + + + | Specimen | + + | Blood | + + + + + + + | Performing | Address | City/State/Zipcode | Phone Number | | Organization | | | | + + + + + | [facility] | [address] | [place] [address] | [phone] | + + + + + Procalcitonin (12/24/2019 12:27 PM PDT) + + + + + + | Component | Value | Ref Range | Performed | Pathologist | | | | | At | Signature | + + + + + + | PROCALCITON | 0.69 (H)Comment: | <0.5 ng/mL | [facility] | | | IN | INTERPRETIVE | [...] | | | | | | at [facility];[address] [place] [address] | | | | | | [facility];[place] [address] | | | | + + + + + + + + | Specimen | + + | Blood | + + + + + + + | Performing | Address | City/State/Zipcode | Phone Number | | Organization | | | | + + + + + | [facility] | [address] | [place] [address] | [phone] | + + + + + POC Glucose (12/24/2019 12:25 PM PDT) + + + + + + | Component | Value | Ref Range | Performed | Pathologist | | | | | At | Signature | + + + + + + | Glucose, | 143 (H)Comment: Testing | 65 - 99 mg/dL | [facility] | | | POC | performed at [facility];[address] | | LABORATORY | | | | [address];[place] | | | | | | [address] | | | | + + + + + + + + | Specimen | + + | | + + + + + + + | Performing | Address | City/State/Zipcode | Phone Number | | Organization | | | | + + + + + | [facility] | [address] | [place] [address] | [phone] | + + + + + POC [...] | | | POC | performed at [facility];[address] | | LABORATORY | | | | [address];[place], [place] | | | | | | [address] | | | | + + + + + + + + | Specimen | + + | | + + + + + + + | Performing | Address | City/State/Zipcode | Phone Number | | Organization | | | | + + + + + | [facility] | [address] | [place] [address] | [phone] | + + + + + CBC [...] + + + | Red Blood | 2.77 (L) | 4.20 - 5.70 | [facility] | | | Cells | | M/uL | LABORATORY | | [...] LABORATORY | | | | performed at [facility];[address] | | | | | | [address];[place], [place] | | | | | | [address] | | | | + + + + + + + + | Specimen | + + | Blood | + + + + + + + | Performing | Address | City/State/Zipcode | Phone Number | | Organization | | | | + + + + + | [facility] | [address] | [place] [address] | [phone] | + + + + + Basic [...] | | | | | performed at [facility], [address] | | | | | | [facility], | | | | | | [place] [address] | | | | + + + + + + + + | Specimen | + + | Blood | + + + + + + + | Performing | Address | City/State/Zipcode | Phone Number | | Organization | | | | + + + + + | [facility] | [address] | [place] [address] | [phone] | + + + + + POC Glucose (12/23/2019 8:35 PM PDT) + + + + + + | Component | Value | Ref Range | Performed | Pathologist | | | | | At | Signature | + + + + + + | Glucose, | 135 (H)Comment: Testing | 65 - 99 mg/dL | [facility] | | | POC | performed at [facility];[address] | | LABORATORY | | | | [address];[place] | | | | | | [address] | | | | + + + + + + + + | Specimen | + + | | + + + + + + + | Performing | Address | City/State/Zipcode | Phone Number | | Organization | | | | + + + + + | [facility] | [address] | [place] [address] | [phone] | + + + + + POC [...] | | | POC | performed at [facility];[address] | | LABORATORY | | | | [address];[place], [place] | | | | | | [address] | | | | + + + + + + + + | Specimen | + + | | + + + + + + + | Performing | Address | City/State/Zipcode | Phone Number | | Organization | | | | + + + + + | [facility] | [address] | [place] [address] | [phone] | + + + + + POC [...] | | | POC | performed at [facility];[address] | | LABORATORY | | | | [address];[place] | | | | | | [address] | | | | + + + + + + + + | Specimen | + + | | + + + + + + + | Performing | Address | City/State/Zipcode | Phone Number | | Organization | | | | + + + + + | [facility] | [address] | [place] [address] | [phone] | + + + + + POC Glucose (12/23/2019 7:21 AM PDT) + + + + + + | Component | Value | Ref Range | Performed | Pathologist | | | | | At | Signature | + + + + + + | Glucose, | 122 (H)Comment: Testing | 65 - 99 mg/dL | [facility] | | | POC | performed at [facility];[address] | | LABORATORY | | | | [address];[place] | | | | | | [address] | | | | + + + + + + + + | Specimen | + + | | + + + + + + + | Performing | Address | City/State/Zipcode | Phone Number | | Organization | | | | + + + + + | [facility] | [address] | [place] [address] | [phone] | + + + + + Basic [...] 22 (L)Comment: GFR <60: | >60 | [facility] [...] | | | | | performed at [facility];[address] | | | | | | [facility];[place], [place] | | | | | | [address] | | | | + + + + + + + + | Specimen | + + | Blood | + + + + + + + | Performing | Address | City/State/Zipcode | Phone Number | | Organization | | | | + + + + + | [facility] | [address] [facility] | [place] [address] | [phone] | + + + + + Phosphorus (12/23/2019 4:04 AM PDT) + + + + + + | Component | Value | Ref Range | Performed | Pathologist | | | | | At | Signature | + + + + + + | Phosphorus | 4.6Comment: Testing | 2.3 - 4.8 mg/dL | [facility] | | | | performed at [facility];8 | | LABORATORY | | | | [facility];[place], [place] | | | | | | [address] | | | | + + + + + + + + | Specimen | + + | Blood | + + + + + + + | Performing | Address | City/State/Zipcode | Phone Number | | Organization | | | | + + + + + | [facility] | [address] | [place] [address] | [phone] | + + + + + Magnesium (12/23/2019 4:04 AM PDT) + + + + + + | Component | Value | Ref Range | Performed | Pathologist | | | | | At | Signature | + + + + + + | Magnesium | 2.1Comment: Testing | 1.7 - 2.4 mg/dL | [facility] | | | | performed at [facility];[address] | | LABORATORY | | | | [address];[place] | | | | | | [address] | | | | + + + + + + + + | Specimen | + + | Blood | + + + + + + + | Performing | Address | City/State/Zipcode | Phone Number | | Organization | | | | + + + + + | [facility] | [address] | [place] [address] | [phone] | + + + + + CBC [...] - 5.70 | [facility] | | | Cells | | M/uL | LABORATORY | | [...] LABORATORY | | | | performed at [facility] | | | | | | [address];[place] | | | | | | [address] | | | | + + + + + + + + | Specimen | + + | Blood | + + + + + + + | Performing | Address | City/State/Zipcode | Phone Number | | Organization | | | | + + + + + | [facility] | [address] | [place] [address] | [phone] | + + + + + Hemoglobin (12/22/2019 9:37 PM PDT) + + + + + + | Component | Value | Ref Range | Performed | Pathologist | | | | | At | Signature | + + + + + + | Hemoglobin | 9.1 (L)Comment: Testing | 13.2 - 17.0 | [facility] | | | | performed at [facility];888 | g/dL | LABORATORY | | | | [address];[place] | | | | | | [address] | | | | + + + + + + + + | Specimen | + + | Blood | + + + + + + + | Performing | Address | City/State/Zipcode | Phone Number | | Organization | | | | + + + + + | [facility] | [address] | [place] [address] | [phone] | + + + + + Hematocrit (12/22/2019 9:37 PM PDT) + + + + + + | Component | Value | Ref Range | Performed | Pathologist | | | | | At | Signature | + + + + + + | Hematocrit | 27.4 (L)Comment: Testing | 39.0 - 50.0 % | [facility] | | | | performed at [facility];[address] | | LABORATORY | | | | [address];[place] | | | | | | [address] | | | | + + + + + + + + | Specimen | + + | Blood | + + + + + + + | Performing | Address | City/State/Zipcode | Phone Number | | Organization | | | | + + + + + | [facility] | [address] | [place] [address] | [phone] | + + + + + POC [...] | | | POC | performed at [facility];[address] | | LABORATORY | | | | [address];[place] | | | | | | [address] | | | | + + + + + + + + | Specimen | + + | | + + + + + + + | Performing | Address | City/State/Zipcode | Phone Number | | Organization | | | | + + + + + | [facility] | [address] | [place] [address] | [phone] | + + + + + POC Glucose (12/22/2019 5:32 PM PDT) + + + + + + | Component | Value | Ref Range | Performed | Pathologist | | | | | At | Signature | + + + + + + | Glucose, | 153 (H)Comment: Testing | 65 - 99 mg/dL | [facility] | | | POC | performed at [facility];[address] | | LABORATORY | | | | [address];[place] | | | | | | [address] | | | | + + + + + + + + | Specimen | + + | | + + + + + + + | Performing | Address | City/State/Zipcode | Phone Number | | Organization | | | | + + + + + | [facility] | [address] | [place] [address] | [phone] | + + + + + Red [...] BANK | Testing performed at | | [facility] | | | COMMENT | [facility];[address] | | LABORATORY | | | | [address]vd;[place] [address] | | | | + + + + + + + + | Specimen | + + | | + + + + + + + | Performing | Address | City/State/Zipcode | Phone Number | | Organization | | | | + + + + + | [facility] | [address] | [place] [address] | [phone] | + + + + + POC Glucose (12/22/2019 10:38 AM PDT) + + + + + + | Component | Value | Ref Range | Performed | Pathologist | | | | | At | Signature | + + + + + + | Glucose, | 161 (H)Comment: Testing | 65 - 99 mg/dL | [facility] | | | POC | performed at [facility];[address] | | LABORATORY | | | | [address];[place], [place] | | | | | | [address] | | | | + + + + + + + + | Specimen | + + | | + + + + + + + | Performing | Address | City/State/Zipcode | Phone Number | | Organization | | | | + + + + + | [facility] | [address] | [place] [address] | [phone] | + + + + + NATHALIA Mathew (12/22/2019 10:28 AM PDT) + + | Specimen | + + | | + + + + + | Impressions | Performed At | + + + | Fluoroscopic service for right hip fixation. This report is for | [facility] | | radiation documentation purposes only. Signed by: Denis | | Eliezer Gonzalez M.D. Date/Time: 12/22/2019 10:44 AM | | + [...] Note | + + | Leonides Bullock Results In 12/22/2019 10:47 AM PDT | [...] | | | | Signed by: César Barrios, Eliezer | | Sign Date/Time: 12/22/2019 10:44 AM [...] | | | POC | performed at [facility];[address] | g/dL | LABORATORY | | | | [address];[place], [place] | | | | | | [address] | | | | + + + + + + + + | Specimen | + + | | + + + + + + + | Performing | Address | City/State/Zipcode | Phone Number | | Organization | | | | + + + + + | [facility] | [address] | [place] [address] | [phone] | + + + + + POC ISTAT, CG8, Arterial (12/22/2019 9:23 AM PDT) + [...] | | | POC | performed at [facility];[address] | g/dL | LABORATORY | | | | [address];[place], [place] | | | | | | [address] | | | | + + + + + + + + | Specimen | + + | | + + + + + + + | Performing | Address | City/State/Zipcode | Phone Number | | Organization | | | | + + + + + | [facility] | [address] | [place] [address] | [phone] | + + + + + POC ISTAT, CG8, Arterial (12/22/2019 8:47 AM PDT) + + [...] | | | POC | performed at [facility];888 | g/dL | LABORATORY | | | | [address];[place] | | | | | | [address] | | | | + + + + + + + + | Specimen | + + | | + + + + + + + | Performing | Address | City/State/Zipcode | Phone Number | | Organization | | | | + + + + + | [facility] | [address] | [place] [address] | [phone] | + + + + + POC NATHANAEL CACERES Venous (12/22/2019 8:03 AM PDT) + + [...] (L)Comment: Testing | 13.7 - 16.7 | [facility] | | | POC | performed at [facility];[address] | g/dL | LABORATORY | | | | [address];[place], [place] | | | | | | [address] | | | | + + + + + + + + | Specimen | + + | | + + + + + + + | Performing | Address | City/State/Zipcode | Phone Number | | Organization | | | | + + + + + | [facility] | [address] | [place] [address] | [phone] | + + + + + Type [...] + + + | BB BAND | [id number] | | [facility] | | | | | | LABORATORY | | + + + + + + | UNIT # | [id number] | | [facility] | | | | [...] | | | RESULT | performed at [facility];[address] | | LABORATORY | | | | [address];[place], [place] | | | | | | [address] | | | | + + + + + + | UNIT # | [id number] | | [facility] | | | | [...] | + + + + + | [facility] | [address] | [place] [address] | [phone] | + + + + + POC [...] | | | POC | performed at [facility];[address] | | LABORATORY | | | | Rosalia [address]ccain;[place] | | | | | | [address] | | | | + + + + + + + + | Specimen | + + | | + + + + + + + | Performing | Address | City/State/Zipcode | Phone Number | | Organization | | | | + + + + + | [facility] | [address] | [place] [address] | [phone] | + + + + + Protime INR (12/22/2019 5:26 AM PDT) + + + + + + | Component | Value | Ref Range | Performed | Pathologist | | | | | At | Signature | + + + + + + | INR | 1.2Comment: REFERENCE | | KRIRIS | | | | RANGE:0.9 - 1.2 [...] | | | | | performed at [facility];[address] | | | | | | Rosalia Mccain;[place] | | | | | | [address] | | | | + + + + + + + + | Specimen | + + | Blood | + + + + + + + | Performing | Address | City/State/Zipcode | Phone Number | | Organization | | | | + + + + + | [facility] | [address] | [place] [address] | [phone] | + + + + + CBC [...] + + + | Red Blood | 2.68 (L) | 4.20 - 5.70 | [facility] | | | Cells | | M/uL | LABORATORY | | [...] | | | Absolute | performed at [facility], [address] | K/uL | LABORATORY | | | | [address], | | | | | | [place] [address] | | | | + + + + + + + + | Specimen | + + | Blood | + + + + + + + | Performing | Address | City/State/Zipcode | Phone Number | | Organization | | | | + + + + + | [facility] | [address] | [place] [address] | [phone] | + + + + + Magnesium (12/22/2019 5:26 AM PDT) + + + + + + | Component | Value | Ref Range | Performed | Pathologist | | | | | At | Signature | + + + + + + | Magnesium | 2.6 (H)Comment: Testing | 1.7 - 2.4 mg/dL | [facility] | | | | performed at [facility], [address] | | LABORATORY | | | | [address]cc[address], | | | | | | [place] [address] | | | | + + + + + + + + | Specimen | + + | Blood | + + + + + + + | Performing | Address | City/State/Zipcode | Phone Number | | Organization | | | | + + + + + | [facility] | [address] | [place] [address] | [phone] | + + + + + Basic [...] 22 (L)Comment: GFR <60: | >60 | [facility] [...] | | | | | performed at [facility], [address] | | | | | | [address], | | | | | | [place] [address] | | | | + + + + + + + + | Specimen | + + | Blood | + + + + + + + | Performing | Address | City/State/Zipcode | Phone Number | | Organization | | | | + + + + + | [facility] | [address] | [place] [address] | [phone] | + + + + + POC [...] | | | POC | performed at [facility];[address] | | LABORATORY | | | | [address];[place], [place] | | | | | | [address] | | | | + + + + + + + + | Specimen | + + | | + + + + + + + | Performing | Address | City/State/Zipcode | Phone Number | | Organization | | | | + + + + + | [facility] | [address] | [place] [address] | [phone] | + + + + + POC [...] | | | POC | performed at [facility];[address] | | LABORATORY | | | | [address];[place] | | | | | | [address] | | | | + + + + + + + + | Specimen | + + | | + + + + + + + | Performing | Address | City/State/Zipcode | Phone Number | | Organization | | | | + + + + + | [facility] | [address] | [place] [address] | [phone] | + + + + + documented in this encounter Visit Diagnoses Not on filedocumented in this encounter Administered Medications + +--------+---------+------+------+------+ [...] | | +-------+ +---------+---+---+ | Given | 20 | 2 puffs | | | | | 20 7:38 | | | | | | AM PDT | | | | +-------+ +---------+---+---+ +---+---+ | | | +---+---+ + +-------+ +--------+---+---+ | bupivacaine (PF) (MARCAINE) | Given | 12/22/19 | 30 mLs | | | | 0.25% injection PRN, Starting | | 20 10:26 | | | | | 12/22/19 at 1026, Intra-op | | AM PDT | | | [...] | | | | | | Starting [facility] 12/26/19 at 1637 | | | [...] | | | | | | | [id number] Use NIGHT DOSE for | | | | | | | doses scheduled: HS, | | | | | | | Nighttime [id number] If the BG is | | | [...] | | | | First dose on 12/21/19 at 2145 | | PM PDT | [...]
--- OUTSIDE RECORDS SUMMARY | ~2020-03-05 | XMS | Encounter Summary ---
Demographics + + + | Address | [address] | | | [place] [address] | + + + | Home Phone | | + + + | Preferred Language | Unknown | + + + | Marital Status | | + + + | Restorationism Affiliation | 1001 | + + + | Race | Unknown | + + + | Ethnic Group | Unknown | + + + Author + + + | Author | Merged With [facility] | | | and [place] | + + + | Organization | Merged With [facility] | | | [...] [place] | | | | | [address] | | + + + + + | Deanna Lawson | ECON | Unknown | | + + + + + Care Team Providers + +------+ + | Care Data Management Analyst Name | Role | Phone | + +------+ + | Barbara Gilman MD | PCP | | + +------+ + Reason for Referral Evaluate & Treat (Routine) + + + + + + + | Status | Reason | Specialty | Diagnoses / | Referred By | Referred To | | | | | Procedures | Contact | Contact | + + + + + + + | Authorized | Specialty | Sleep | Diagnoses | Darek, | Willian, | | | Services | Medicine | Permanent | Charlee Chauhan, | Jordi Cantrell MD | | | Required | | atrial | [employer] [address] | 19 | | | | | fibrillation | [place] | [place] | | | | | (HCC) | [address] | [address] | | | | | Moderate to | [place], [place] | [address] | | | | | severe | [address] | [place] | | | | | pulmonary | Phone: | [phone] Phone: | | | | | hypertension | [phone] | [phone] | | | | | (HCC) Risk | Fax: | Fax: | | | | | factors for | [phone] | [phone] | | | | | obstructive | | | | | | | sleep apnea | | | + + + + + + + Reason for Visit + + + | Reason | Comments | + + + | Follow-up, Office | 4 month w/Echo | | Visit | | + + + Encounter Details +--------+---------+ + + + | Date | Type | Department | Care Team | Description | +--------+---------+ + + + | 10/27/ | Office | [facility] | Charlee Oswald | Permanent atrial | | 2020 | Visit | CARDIOLOGY [facility] | [address] | fibrillation (HCC) | | | | [address] | [place] | (Primary Dx); | | | | [address] | [place] [address] | Cardiac pacemaker in | | | | [place] | [phone] | situ; Chronic | | | | [address]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 | | | | [phone] | | failure (HCC); | | | [...] | | | | | | Stage 3 chronic | | | | | | [...] | | | | | apnea | +--------+---------+ + + + Social History [...] + + + | Blood Pressure | 124/50 | 10/28/2019 9:38 AM | | | | | PDT | | + + + + + | Pulse | 60 | 10/28/2019 9:38 AM | | | | | PDT | | + + + + + | Temperature | - | - | | + + + + + | Respiratory Rate | - | - | | + + + + + | Oxygen Saturation | 99% | 10/28/2019 9:38 AM | | | | | PDT | | + + + + + | Inhaled Oxygen | - | - | | | Concentration | | | | + + + + + | Weight | 67.7 kg (149 lb 4.8 | 10/28/2019 9:38 AM | | | | oz) | PDT | | + + + + + | Height | 165.1 cm (5' 5") | 10/28/2019 9:38 AM | | | | | PDT | | + + + + + | Body Mass Index | 24.84 | 10/28/2019 9:38 AM | | | | | PDT | | + + + + + documented in this encounter Patient Instructions Patient Instructions Charlee Oswald FNP - 10/28/2019 10:00 AM PDTI have ordered you Non fasting labs to be done at [facility] in 2 weeks Your Echo looks worse , as worsening pulmonary hypertension, and tricuspid regurgitation You need to see you kidney doctor , Dr. Jade , about your kidney function I made changes to medications: restart Eliquis 2.5 mg BID to help prevent stroke , and will call you PCP to find out what is going on . continue furosemide 40 mg Twice a day I have referred you to Dr. Dorsey at [facility] , call [phone] for an appoi ntment next week I will have you establish care with Dr. Sanchez who will be your impregnator and drier See me back in 4 weeks documented in this encounter Progress Notes Charlee Oswald FNP - 10/28/2019 10:00 AM PDTFormatting of this note might be differe nt from the original. Date of visit: 10/28/2019 Primary Care Physician: Barbara Gilman MD CHIEF COMPLAINT: Chief Complaint Patient presents with Follow-up, Office Visit 4 month w/Echo HISTORY OF PRESENT ILLNESS: Mr. Andres Guzmán is an 89-year-old man who is here today to follow up on his Echo resul ts. He is accompanied today by his Marissa [...] reported by him as being negative His HDT6AC4- VASC score is 6( HTN, age, stroke, [...] are detailed below. I saw him last 06/27/2019 suggested [facility]ol i nhaler for his bronchitis, and to get an up dated appointment with nephrology as he has not seen him since March 2019, and ordered an echo to be performed in September, and continued furosemide 40 mg daily, as he did not tolerate being on less diuretic. Since I saw him last, he was seen in the emergency room on September 26, 2019 when he was sent there from his PCP for changes to his renal function. Notes and labs reviewed and the y noted his creatinine was actually better from what it was in July as his creatinine booth d gone from 2.6-2.3, but he did have an elevated BNP 833, and noted to have baseline anemia and thrombocytopenia. He was again recommended to follow-up with nephrology which he neglec colt to do, but did follow-up he reported with Dr. Brito. He reports today that he did not feel well in August, but has felt much improved in the last month and thinks he is less fluid overloaded. He denies any chest pain, dyspnea, or syncope. He also denies any signs or symptoms of st roke or TIA since Eliquis stopped. He seems Euvolemic today , and his weight down almost 50 lbs from 192 pounds in 07/2017. He did bring his medication bottles to the clinic today, and I reviewed them perso siobhan, and [facility] REVIEW OF SYSTEMS: Negative except for pertinent [...] recreational or illicit drug use. Exercises with [employer] and yard work, tolerates without chest pain or dyspnea. 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 Changed by PCP) lisinopril (PRINIVIL, ZESTRIL) 20 mg tablet Take [...] EXAM: Wt Readings from Last 3 Encounters: 10/28/19 67.7 kg (149 lb 4.8 oz) 06/27/19 72 kg (158 lb 11.2 oz) 05/07/19 72.6 kg (160 lb) Temp Readings from Last 3 Encounters: 02/11/19 36.7 C (98.1 F) BP Readings from Last 3 Encounters: 10/28/19 124/50 06/27/19 126/52 05/07/19 110/44 Pulse Readings from Last 3 Encounters: 10/28/19 60 06/27/19 60 05/07/19 60 GENERAL: Well developed, well nourished, appears tired [...] : 02/04/2019: ( Dr. Thompson) : new [employer] Accolade MRI com patible model L310, serial #[id number] pacemaker. The current lead is a [employer] model 4136, serial #[id number].Mode for pacing, VVIR with dual-sensor technology programmed on. T he lower rate will be 60 and upper rate 120beats per minute. The output will be 2 volts at 0.4 milliseconds with sensitivity of 2.5 millivolts. Pacing and sensing will be bipolar Previous Implant Pacemaker/ICD: 07/30/2010, BS [employer] S601, SN: [id number]. [facility]. Addendum: Last pacer interrogation: 11/11/2019: Battery longevity 9 years. Pacer dependent. RV pacin%. No atrial lead, unable to monitor burden of atrial fibrillation. No fiona tricular high rate episodes. Lead impedance and threshold values acceptable. CHF parameter s and trends reviewed and stable. pacer interrogation: 05/07/2019: ( Dr. Thompson) : Normal device function was seen today for th is [employer] single-chamber device. The pacing threshold was [...] 15 mmHg. Normal pulmonic valve with mild AL. Sinus of Valsalva dilated about 4.26 cm, [...] change, except less pulmonar y hypertension Echo:07/26/2017: [facility]: EF >70 percent. LV normal in size [...] PHS 75,TOTAL BILI 0.6,ALB 3.9 Labs: 02/18/2018: ([facility]). CBC: WBC 6.2, RBC 3.46, hemoglobin [...] 73. Thyroid: TSH 3.55 Labs: 08/23/2018: ( [facility]): CBC: WBC 6.6, RBC [...] 2.65, hemoglobin 8.9, hematocrit 26.5, platelets 98 ASSESSMENT & PLAN: He is here today with his to follow-up on the results of his Echo. He has problems as detailed below. His Echo performed in September as detailed above and shows a normal EF and reported ongoin g mid to basal inferior and septal wall hypokinesia mild LVH, mild RVE, both atria severely enlarged mild to moderate AI mild to moderate MR but now severe pulmonary hypertension and s evere tricuspid regurgitation which is worsened since last echo, and his sinus of Valsalva i s dilated as well and IVC also dilated. I discussed with him that I was concerned as his labs performed when he was in the emerge ncy room September had shown an elevated BNP of 833 with ongoing low renal function with crea tinine of 2.3 with GFR of 27. His echo overall shows that he was fluid overloaded, and he seemed fluid overloaded whe n he was in the emergency room in September, but reports that he has felt improved in the t month, and his weight is down 11 pounds from when I saw him last. He reports he is taking furosemide 40 mg twice daily, and is not sure when this was incre ased, and is also not sure when they stopped his Eliquis. His Lisinopril was also stopped, which I understand given his decline in renal function He seemed very confused today, and very unclear on which prescribers had made medication ch anges, but did remember that he had seen Dr. Brito after his emergency room visit, so I have requested records from him. I am extremely concerned his Eliquis was stopped, as he has a very high QZI6YX3- VASC sco re of 6. For his cardiac medications today, I have continued furosemide 40 mg twice daily, res tarted his Eliquis at 2.5 mg twice daily for stroke prevention, and have continued carvedilo l 25 mg twice daily for heart failure, spironolactone 25 mg daily for heart failure, teraz osin 10 mg daily for hypertension, Pravachol 40 mg qhs for hyperlipidemia. I have ordered an updated BMP, BNP, and CBC to be performed in 2 weeks to evaluate his renal function and anemia. I will also have him establish care with Dr. Dina Sanchez 01/22/2020 for primary cardio logist, as well as seeing me. I also referred him for sleep apnea evaluation with Dr. Dorsey at the [facility] sleep disorders clinic due to his now severe pulmonary hypertension. He also has an appointment with his just Dr. Jade on March 09. He states his local PCP is Rosa Elena Goodrich, but I am unable to get her contact informat ion , so I will send copy of my note to Dr. Brito, and well as Dr. Gilman . Addendum: 11/26/2019: I received documentation from Dr. Brito dated October 09, 2019 which n otes that his apixaban was stopped for increased anemia, and he noted that he had anemia ove r the last couple of years, possibly with most recent hemoglobin 9.2 with an elevated MCV bu t normal ferritin levels of 98, there was concerns for GI bleeding, and but his endoscopy an d colonoscopy in July 2019 had shown moderate hemorrhagic gastric duodenitis. It was p ostulated that anemia of chronic kidney disease was a possibility, and he referred the patie nt to Dr. Li for further evaluation and treatment in this regard, and no changes to medication. Addendum: I also [facility] noted he stopp ed apixaban, noted low risk for A. fib, did not seem to understand that his pacemaker is a v entricular pacemaker and he is 100% RV paced, so unable to evaluate burden of atrial fib. King tesfaye also held his lisinopril for worsening renal function. 1. Permanent atrial fibrillation 2. Cardiac pacemaker in situ 3. Chronic diastolic heart failure (HCC) 4. Dilated aortic root (HCC) 5. Hypertension goal BP (blood pressure) < 140/80 6. Mixed hyperlipidemia 7. 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 Moderate tricuspid regurgitation 9. History of stroke 10. On apixaban therapy 11. Stage 3 chronic kidney disease (HCC) 12. Type 2 diabetes mellitus without complication, without long-term current use of insulin (HCC) 13. 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 Risk factors for obstructive sleep apnea Orders Placed This Encounter Procedures Basic Metabolic Panel B Type Natriuretic Peptide CBC no Differential Ambulatory Referral to Sleep Medicine The following portions of the patient's history [...] contain inadvertent rec ognition errors. Maximilian MCCONNELL Located Within [facility] Cardiology 10/28/2019 Adoyvette gregory in this encounter Plan of Treatment +--------+---------+ + + + | Date | Type | Specialty | Care Team | Description | +--------+---------+ + + + | 03/17/ | Office | Orthopedic Surgery | Melquiades Baez | | 2019 | Visit | | DO [address] | | | | | | [place], | | | | | | [place] [address] | | | | | | [phone] | | | | | | | | +--------+---------+ + + + | 04/21/ | Office | Nephrology | Isiah Jade MD | | 2019 | Visit | | [address] [facility] | | | | | | [address] [place] | | | | | | [address] | | | | | | | | +--------+---------+ + + + | 05/07/ Office | Cardiology | Charlee Oswald | | | 2019 | Visit | | [address] | | | | | | [address] | | | | | | [place] [address] | | | | | | [phone] | | | | | | | | +--------+---------+ + + + + +------+--------+ + + | Name | Type | Priori | Associated Diagnoses | Order Schedule | | | | ty | | | + +------+--------+ + + | B Type Natriuretic | Lab | Routin | Chronic diastolic | Expected: | | Peptide | | e | heart failure (HCC) | 11/11/2019, Expires: | | | | | | 10/27/2020 | + +------+--------+ + + | CBC no Differential | Lab | Routin | Anemia due to | Expected: | | | | e | stage 4 chronic | 11/11/2019, Expires: | | | | | kidney disease (HCC) | 10/27/2020 | + +------+--------+ + + + + +--------+ + + | Name | Type | Priori | Associated Diagnoses | Order Schedule | | | | ty | | | + + +--------+ + + | Ambulatory Referral | Outpatient | Routin | Permanent atrial | Ordered: 10/28/2019 | | to Sleep Medicine | Referral | e | fibrillation (HCC) | | | | | | Moderate to severe | | | | | | pulmonary | | | | | | hypertension (HCC) | | | | | | Risk factors for | | | | | | obstructive sleep | | | | | | apnea | | + + +--------+ + + documented as of this encounter Procedures + +--------+ + + + | Procedure Name | Priori | Date/Time | Associated Diagnosis | Comments | | | ty | | | | + +--------+ + + + | LABS - EXTERNAL SCAN | | 09/26/2019 | | Results for this | | | | 12:00 AM | | procedure are in the | | | | PST | | results section. | + +--------+ + + + documented in this encounter Results LABS - EXTERNAL SCAN (09/26/2019 12:00 AM PST) + + + | Narrative | Performed [...] apixaban therapy | + + | Stage 3 chronic [...]
--- OUTSIDE RECORDS SUMMARY | ~2020-03-05 | XMS | Clinical Summary ---
Demographics + + + | Address | [address] | | | [place] [address] | + + + | Home Phone | | + + + | Preferred Language | Unknown | + + + | Marital Status | | + + + | Yazdanism Affiliation | 1001 | + + + | Race | Unknown | + + + | Ethnic Group | Unknown | + + + Author + + + | Author | [facility] | | | and [place] | + + + | Organization | [facility] | | | [...] [place] | | | | | [id number] | | + + + + + | Bekah Lawson | ECON | Unknown | | + + + + + Care Team Providers + +------+ + | Care Account Manager Relief Name | Role | Phone | + +------+ + | Barbara Gilman MD | PCP | | + +------+ + Allergies + + + + + + | Active Allergy | Reactions | Severity | Noted | Comments | | | | | Date | | + + + + + + | Adhesive & Tape | Other (See Comments) | Medium | 12/30/19 | Blistering | | | | | 20 | | + + + + + + | Codeine | Nausea And Vomiting, | Low | 04/24/20 | | | | Vertigo | | 14 | | + + + + + + | Morphine And Related | Nausea Only | Low | 04/24/20 | Nausea, Slow to | | | | | 14 | recover | + + + + + + | Silicone | Rash | Low | 01/01/20 | Blistering | | | | | 20 | | + + + + + + Medications + + + +---------+------+------+-------+ | Medication | Sig | Dispensed | Refills | Star | End | Statu | | | | | | t | Date | s | | | | | | Date | | | + + + +---------+------+------+-------+ | terazosin (HYTRIN) | Take 10 mg by mouth | | 0 | 09/0 | | Activ | | 10 MG capsule | daily with dinner. | | | 4/20 | | e | | | | | | 14 | | | + + + +---------+------+------+-------+ | pravastatin | Take 40 mg by mouth | | 0 | 01/0 | | Activ | | (PRAVACHOL) 80 MG | nightly. | | | 6/20 | | e | | tablet | | | | 16 | | | + + + +---------+------+------+-------+ | ascorbic acid | Take 500 mg by mouth | | 0 | 01/0 | | Activ | | (VITAMIN C) 500 MG | daily. | | | 6/20 | | e | | tablet | | | | 16 | | | + + + +---------+------+------+-------+ | ferrous sulfate | Take 65 mg of iron | | 0 | 06/0 | | Activ | | 325 mg tablet | by mouth every other | | | / | | e | | | day. | | | 18 | | | + + + +---------+------+------+-------+ | meclizine | Take 1 tablet by | 90 | 0 | 01/1 | | Activ | | (ANTIVERT) 25 mg | mouth 3 (three) | tablet | | 3/20 | | e | | tablet | times daily as | | | 19 | | | | | needed. | | | | | | + + + +---------+------+------+-------+ +---+ + | | Additional | | | InformationPatient | | | taking differently: | | | 25 mg Oral 3 TIMES | | | DAILY PRN, takes | | | rarely, Reported on | | | 06/27/2019 11:54 AM | +---+ + + + +---------+---+------+------+-------+ | allopurinol | Take 1 tablet by | 90 | 3 | 05/2 | | Activ | | (ZYLOPRIM) 100 mg | mouth daily. | tablet | | 420 | | e | | tablet | | | | 19 | | | + + +---------+---+------+------+-------+ | pantoprazole | Take 1 tablet by | 60 | 3 | 05/1 | 08/ | Activ | | (PROTONIX) 40 mg | mouth 2 times daily | tablet | | 6/20 | 4/20 | e | | tablet | (before meals) for | | | 20 | 20 | | | | 90 days. | | | | | | + + +---------+---+------+------+-------+ | apixaban (ELIQUIS) | Take 2.5 mg by mouth | | 0 | | | Activ | | 2.5 mg tablet | 2 times daily | | | | | e | + + +---------+---+------+------+-------+ | metFORMIN | Take 500 mg by mouth | | 0 | | | Activ | | (GLUCOPHAGE-XR) 500 | 3 times daily | | | | | e | | mg 24 hr tablet | | | | | | | + + +---------+---+------+------+-------+ | melatonin 5 mg | Take by mouth | | 0 | | | Activ | | tablet | nightly as needed | | | | | e | | | for Insomnia | | | | | | + + +---------+---+------+------+-------+ | tamsulosin | Take 0.4 mg by mouth | | 0 | | | Activ | | (FLOMAX) 0.4 mg CAPS | daily (after | | | | | e | | | breakfast) | | | | | | + + +---------+---+------+------+-------+ | carvedilol (COREG) | Take 25 mg by mouth | | 0 | | | Activ | | 25 mg tablet | 2 times daily (with | | | | | e | | | breakfast & dinner) | | | | | | + + +---------+---+------+------+-------+ | docusate sodium | Take 50 mg by mouth | | 0 | | | Activ | | (COLACE) 50 MG | 2 times daily | | | | | e | | capsule | | | | | | | + + +---------+---+------+------+-------+ | polyethylene | Take 17 g by mouth | | 0 | | | Activ | | glycol (MIRALAX) 17 | Daily | | | | | e | | g packet | | | | | | | + + +---------+---+------+------+-------+ | magnesium | Take by mouth Daily | | 0 | | | Activ | | hydroxide (MILK OF | as needed for | | | | | e | | MAGNESIA) 400 mg/5 | Constipation | | | | | | | mL suspension | | | | | | | + + +---------+---+------+------+-------+ | torsemide | Take 1 tablet (20 mg | 30 | 2 | 06/1 | | Activ | | (DEMADEX) 20 mg | total) by mouth 2 | tablet | | 8/20 | | e | | tablet | times daily | | | 20 | | | + + +---------+---+------+------+-------+ | albuterol 90 | Inhale 2 puffs into | 1 | 0 | 06/1 | | Activ | | mcg/puff inhaler | the lungs every 6 | Inhaler | | 8/20 | | e | | | hours as needed for | | | 20 | | | | | Wheezing or | | | | | | | | Shortness of Breath | | | | | | + + +---------+---+------+------+-------+ | | Inhale 2 puffs into | 1 | 0 | 06/1 | | Activ | | budesonide-formotero | the lungs 2 times | Inhaler | | 8/20 | | e | | l (SYMBICORT) | daily | | | 20 | | | | 160-4.5 mcg/puff | | | | | | | | inhaler | | | | | | | + + +---------+---+------+------+-------+ | insulin lispro | Inject 0-12 Units | 10 mL | 0 | 05/1 | 06/1 | Disco | | (HUMALOG) 100 | under the skin 3 | | | 3/20 | 8/20 | ntinu | | units/mL injection | times daily (with | | | 20 | 20 | ed | | (vial) | meals). | | | | | (Ther | | | | | | | | apy | | | | | | | | compl | | | | | | | | eted) | + + +---------+---+------+------+-------+ | torsemide | Take 20 mg by mouth | | 0 | | 06/1 | Disco | | (DEMADEX) 20 mg | Daily | | | | 8/20 | ntinu | | tablet | | | | | 20 | ed | | | | | | | | (Reor | | | | | | | | immanuel | | | | | | | | (no | | | | | | | | Cance | | | | | | | | l Rx | | | | | | | | msg)) | + + +---------+---+------+------+-------+ | furosemide (LASIX) | Take 40 mg by mouth | | 0 | | 06/1 | Disco | | 40 mg tablet | 2 times daily | | | | 8/20 | ntinu | | | | | | | 20 | ed | + + +---------+---+------+------+-------+ Active Problems + + + | Problem | Noted Date | + + + | Anemia of chronic kidney failure, stage 3 (moderate) | 01/30/2020 | + + + | Secondary hyperparathyroidism | 01/30/2020 | + + + | Bilateral leg edema | 01/30/2020 | + + + | Electrolyte imbalance risk | 01/30/2020 | + + + | Bleeding duodenal ulcer | 12/29/2019 | + + + | Acute GI bleeding | 12/28/2019 | + + + | ATN (acute tubular necrosis) | 12/27/2019 | + + + | Weakness generalized | 12/26/2019 | + + + | Difficulty in walking | 12/26/2019 | + + + | Bacterial pneumonia | 12/26/2019 | + + + | Acute post-hemorrhagic anemia | 12/26/2019 | + + + | Closed comminuted intertrochanteric fracture of right femur with | 12/21/2019 | | routine healing | | + + + | 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 | + + + + + | Cholelithiasis with acute cholecystitis without obstruction | 06/27/2019 | + + + | Phimosis | 06/27/2019 | + + + | History of stroke | 03/25/2019 | + + + + + | Overview: stroke in 2007 stroke with right leg weakness with | | residual right-sided facial and lip droop, | + + + + + | Moderate to severe pulmonary hypertension | 09/13/2018 | + + + | Moderate tricuspid regurgitation | 09/13/2018 | + + + | Dilated aortic root | 09/13/2018 | + + + | CKD (chronic kidney disease) stage 3, GFR 30-59 ml/min | 09/13/2018 | + + + | Snoring | 09/03/2017 | + + + + + | Overview: A sleep study did not show sleep apnea apparently. | + + + + + | Chronic diastolic heart failure | 07/25/2017 | + + + + + | Overview: He has chronic diastolic heart failure related to | | permanent atrial fibrillation and anemia. His LV systolic | | function is normal. | + + +--------+ + | Anemia | 07/25/2017 | +--------+ + + + | Overview: He needed to be transfused 3 units of packed cells | | and was given vitamin K intravenously in June 2017 because | | of a GI bleed. Upper and lower endoscopy did not show a source. | | He is now taking iron. I recommended Switching from warfarin to | | apixaban because of the lower risk of bleeding with that agent. | | Labs will be checked today with an INR, CBC, and basic metabolic | | profile. | + + + + + | HLD (hyperlipidemia) | 06/04/2015 | + + + | Type 2 diabetes mellitus with kidney complication, without | 06/04/2015 | | long-term current use of insulin | | + + + | Permanent atrial fibrillation | 04/24/2014 | + + + + + | Overview: Permanent A. Fib. The left atrium was markedly | | dilated and he had severe pulmonary hypertension(75mm)on an echo | | on July 26, 2017. The LV systolic function was normal. There | | was mild concentric LVH. He has a single-chamber [employer] | | [employer] ventricular pacemaker that is nearing elective | | replacement indicator status. He has been pacing the right | | ventricle 99% of the time. Anticoagulated with apixaban. He has | | only been taking 2.5 mg twice per day, because of renal | | dysfunction and age. The chads 2 vascular score is 4. | + + + + + | Cardiac pacemaker in situ | 04/24/2014 | + + + + + | Overview: He has a [employer]rua single-chamber | | RV pacemaker that was placed on July 30, 2010 because of | | heart block, in the context of permanent atrial fibrillation. | | 02/27/18: Appropriate device function was seen today. The pacing | | threshold in the RV was 0.8 V at 0.5 ms. There was no reliable | | underlying rhythm. He has been pacing 99% of the time in the RV, | | with a lower rate limit of 60 bpm. The estimated longevity from | | the device is less than 0.5 years. No significant arrhythmias | | have been seen. Monthly battery checks will be initiated. August | 2018: Appropriate device function was seen today. The pacing | | threshold was 0.5 V at 0.6 ms and R waves were 10.9 mV. Patient | | has occurred 99% of the time in the RV. The pacing mode is VVIR | | (permanent atrial fibrillation). The estimated longevity is less | | than 0.5 years. 02/01/2019: The device is now at MIRIAN. A change | | that has been scheduled for 02/04/2019. The risks, benefits, and | | rationale have been reviewed05/07/2019:A generator change out was | | performed on February 04, 2019. Normal device function was seen | | today for this [employer] single-chamber device. The | | pacing threshold was 0.6 V at 0.6 ms and 0.4 ms at 0.7 V. He was | | left at 2 V at 0.5 ms. There has been no arrhythmias. He is | | pacemaker dependent and feels poorly without any pacing. | + + + + + | Hypertension goal BP (blood pressure) < 140/80 | 04/24/2014 | + + + + + | Overview: Controlled on current therapy. He is now on | | carvedilol 25 mg twice a day and lisinopril 20 mg twice a day | | along with Lasix 40 mg per day and spironolactone 25 mg twice a | | day. Hytrin 10 mg daily at bedtime. | + + Encounters +--------+ + + + + | Date | Type | Specialty | Care Team | Description | +--------+ + + + + | 02/26/ | Telephone | Gastroenterology | Hakeem Perry, | Procedure | | 2020 | | | Cold Meat Chef | | +--------+ + + + + | 02/19/ | Telephone | Nephrology | Isiah Jade MD | Other (Lab Results ) | | 2019 | | | | | +--------+ + + + + | 02/17/ | Hospital | Radiology | Melquiades Baez | Right hip pain | | 2019 | Encounter | | DO Regulo | | +--------+ + + + + | 02/17/ | Office | Orthopedic Surgery | Melquiades Baez | Right hip pain | | 2019 | Visit | | DO [place] | (Primary Dx); | | | | | | Orthopedic | | | | | | aftercare; Closed | | | | | | fracture of right | | | | | | hip with routine | | | | | | healing, subsequent | | | | | | encounter | +--------+ + + + + | 02/12/ | Documentati | Nephrology | Silva Paz, | Results | | 2019 | on | | Cold Meat Chef | (interpath-02/04/2020 | | | | | | ) | +--------+ + + + + | 02/05/ | Office | Cardiology | Terrance Sanchze DO | 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 | Visit | | | fibrillation ([facility]) | | | | | | (Primary Dx); | | | | | | Hypertension goal BP | | | | | | (blood pressure) < | | | | | | 140/80; Chronic | | | |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 | | | | | | failure ([facility]); | | | | | | Moderate to severe | | | | | | pulmonary | | | | | | hypertension ([facility]); | | | | | | Moderate tricuspid | | | | | | regurgitation | +--------+ + + + + | 01/30/ | Orders Only | Nephrology | Isiah Jade MD | Hypertension goal BP | | 2020 | | | | (blood pressure) < | | | | | | 140/80 (Primary Dx); | | | | | | 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, without | | | | | | long-term current | | | | | | use of insulin | | | | | | ([facility]); Secondary | | | | | | hyperparathyroidism | | | | | | ([facility]); CKD (chronic | | | | | | kidney disease) | | | | | | stage 3, GFR 30-59 | | | | | | ml/min ([facility]); ATN | | | | | | (acute tubular | | | | | | necrosis) ([facility]) | +--------+ + + + + | 01/30/ | Telephone | Orthopedic Surgery | Meqluiades Baez | Other | | 2020 | | | [place] DO | | +--------+ + + + + | 01/29/ | Office | Nephrology | Isiah Jade MD | ATN (acute tubular | | 2020 | Visit | | | necrosis) ([facility]) | | | | | | (Primary Dx); CKD | | | | | | (chronic kidney | | | | | | disease) stage 3, | | | | | | GFR 30-59 ml/min | | | | | | ([facility]); Hypertension | | | | | | goal BP (blood | | | | | | pressure) < 140/80; | | | | | | 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, without | | | | | | long-term current | | | | | | use of insulin | | | | | | ([facility]); 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 | | | | | | failure, stage 3 | | | | | | (moderate) ([facility]); | | | | | | Secondary | | | | | | hyperparathyroidism | | | | | | ([facility]); Bilateral leg | | | | | | edema; Electrolyte | | | | | | imbalance risk | +--------+ + + + + | 01/29/ | Documentati | Nephrology | Nelson | Results (01/22/20, | | 2019 | on | | Kita Sterling | 01/27/20) | | | | | It Network Architect | | +--------+ + + + + | 01/26/ | Documentati | Nephrology | Nelson | Other (PCP progress | | 2019 | on | | Kita Sterling | note 01/23/20) | | | | | It Network Architect | | +--------+ + + + + | 01/20/ | Hospital | Radiology | Melquiades Baez | Right hip pain | | 2019 | Encounter | | DO Regulo | | +--------+ + + + + | 01/20/ | Office | Orthopedic Surgery | Melquiades Baez | Right hip pain | | 2019 | Visit | | DO Regulo | (Primary Dx); | | | | | | Orthopedic aftercare | +--------+ + + + + | 01/07/ | Telephone | Orthopedic Surgery | Melquiades Baez | Other (POST OP APPT | | 2019 | | | DO Regulo | ) | +--------+ + + + + | 01/05/ | Documentati | Nephrology | Nelson, | [place] (Dr. 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) (HCC); ATN | | | | | | (acute tubular | | | | | | necrosis) (HCC) | +--------+ + + + + | 01/02/ | Telephone | Nephrology | Isiah Jade MD | [place] ([facility]/ | 2019 | | | | ) | +--------+ + + + + | 12/28/ | Anesthesia | | Maco Wolf, | | | 2019 | Event | | WINDOW/DISTRIBUTION CLERK | | +--------+ + + + + | 12/28/ | Surgery | | Lamont Hernandez MD | [place] | | 2019 | | | | | +--------+ + + + + | 12/21/ | Anesthesia | | Ja Hill, | | | 2020 | Event | | WINDOW/DISTRIBUTION CLERK | | +--------+ + + + + | 12/21/ | Surgery | | Melquiades Baez | NAILING IM BETSY FEMUR | | 2019 | | | DO Regulo | - GAMMA NAIL | +--------+ + + + + | 12/20/ | Hospital | General Surgery | Julián Messina MD | Acute GI bleeding | | 2019 - | Encounter | | Regino Greene MD | (Primary Dx); Closed | | | | | Jerry Chino | comminuted | | 12/31/ | | Lisa Malik MD | intertrochanteric | | 2020 | | | | fracture of right | | | | | | femur with routine | | | | | | healing; Chronic | | | | | | kidney disease, | | | | | | stage IV (severe) | | | | | | (HCC); Permanent | | | | | | atrial fibrillation | | | | | | (HCC); Chronic | | | |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 | | | | | | failure (HCC); | | | | | | Neurologic deficit | | | | | | as late effect of | | | | | | ischemic | | | | | | cerebrovascular | | | | | | accident (CVA); | | | | | | Acute renal failure | | | | | | with acute tubular | | | | | | necrosis | | | | | | superimposed on | | | | | | stage 3 chronic | | | | | | kidney disease | | | | | | (HCC); KATI (acute | | | | | | kidney injury) | | | | | | (HCC); Metabolic | | | | | | acidosis; Anemia, | | | | | | unspecified type; | | | | | | Hyperkalemia; | | | | | | Hypoalbuminemia | +--------+ + + + + from Last 3 Months Family History + + +------+ + | Medical History | Relation | Name | Comments | + + +------+ + | Heart disease | Brother | | | + + +------+ + | Hypertension | Brother | | | + + +------+ + | Heart disease | Father | | | + + +------+ + | Cancer | Sister | | | + + +------+ + + +------+ + + | Relation | Name | Status | Comments | + +------+ + + | Brother | | Alive | CHF, HTN | + +------+ + + | Brother | | | | + +------+ + + | Brother | | | | + +------+ + + | Daughter | | Alive | | + +------+ + + | Father | | | CHF, [place] | | | | (Age | | | | | 72) | | + +------+ + + | Mother | | | unknown status | | | | (Age | | | | | 68) | | + +------+ + + | Sister | | | breast cancer | | | | (Age | | | | | 60) | | + +------+ + + | Sister | | | lung cancer | | | | (Age | | | | | 68) | | + +------+ + + | Sister | | | [place] | | | | (Age | | | | | 83) | | + +------+ + + | Sister | | | colon cancer | | | | (Age | | | | | 88) | | + +------+ + + | Sister | | | | + +------+ + + | Son | | Alive | | + +------+ + + | Son | | Alive | | + +------+ + + Social History + +-------+ +--------+ [...] 7:19 PM PDT | + + + Last Filed Vital Signs + + + + + | Vital Sign | Reading | Time Taken | Comments | + + + + + | Blood Pressure | 118/46 | 02/06/2020 12:50 PM | | | | | PDT | | + + + + + | Pulse | 62 | 02/18/2020 1:13 PM | | | | | PDT | | + + + + + | Temperature | 37 C (98.6 F) | 02/18/2020 1:13 PM | | | | | PDT | | + + + + + | Respiratory Rate | 18 | 01/01/2020 10:58 AM | | | | | PDT | | + + + + + | Oxygen Saturation | 96% | 02/18/2020 1:13 PM | | | | | PDT | | + + + + + | Inhaled Oxygen | - | - | | | Concentration | | | | + + + + + | Weight | 76.2 kg (168 lb) | 02/18/2020 1:13 PM | | | | | PDT | | + + + + + | Height | 165.1 cm (5' 5") | 02/18/2020 1:13 PM | | | | | PDT | | + + + + + | Body Mass Index | 27.96 | 02/18/2020 1:13 PM | | | | | PDT | | + + + + + Plan of Treatment +--------+---------+ + + + | Date | Type | Specialty | Care Team | Description | +--------+---------+ + + + | 03/17/ | Office | Orthopedic Surgery | Melquiades Baez | | | 2019 | Visit | | DO [address] | | | | | | [facility] | | | | | | [place] [address] | | | | | | [phone] | | | | | | | | +--------+---------+ + + + | 04/21/ | Office | Nephrology | Isiah Jade MD | | | 2019 | Visit | | [address] | | | | | | [address] [place] | | | | | | [address] | | | | | | | | +--------+---------+ + + + | 05/07/ | Office | Cardiology | Charlee Oswald | | | 2019 | Visit | | [address] | | | | | | [address] | | | | | | [place] [address] | | | | | | [phone] | | | | | | | | +--------+---------+ + + + + + + + + | Health Maintenance | Due Date | Last | Comments | | | | Done | | + + + + + | Diabetic Eye Exam | | | | | | 0 | | | + + + + + | Diabetic Foot Exam | | | | | | 0 | | | + + + + + | Vaccine: | | | | | Dtap/Tdap/Td (1 - | 1 | | | | Tdap) | | | | + + + + + | Vaccine: Zoster (1 | | | | | of 2) | 2 | | | + + + + + | Vaccine: | | | | | Pneumococcal 65+ (1 | 7 | | | | of 1 - PPSV23) | | | | + + + + + | Hemoglobin A1c | | 07/26/20 | | | Screening | 8 | 17 | | + + + + + | Adult Annual | | | | | Wellness Visit | 9 | | | + + + + + | Vaccine: Influenza | | | | | (#1) | 0 | | | + + + + + Implants + +--------+------+ +--------+--------+--------+ | Implanted | Type | Area | Manufacture | Device | Shelf | Model | | | | | r | | Expira | / | | | | | | Identi | tion | Serial | | | | | | fier | Date | / Lot | + +--------+------+ +--------+--------+--------+ | Implant Id: [id number] - | Cardia | | | | | [id number] | | Pacer-02/04/2019Implanted: | c | | | | | /[id number] | | Qty: 1 on 02/04/2019 by | Rhythm | | | | | 1 / | | Enoch Thompson MD | | | | | | | | | Manage | | | | | | | | ment | | | | | | + +--------+------+ +--------+--------+--------+ | Screw Lag [id number] Ti | Screw | | CHASIDY | | 07/20/ | 3060-0 | | [id number] - SnaImplanted: | | | MEDICAL - | | 2023 | [id number] | | Qty: 1 on 12/22/2019 by | | | STRY | | | /NA | | Melquiades Baez DO at [facility] | | | | | | /[id number] | | [facility] | | | | | | 6D | | CENTER | | | | | | | + +--------+------+ +--------+--------+--------+ | Screw Xochitl F/T T2 Ti 5x37.5mm | Screw | | CHASIDY | | 10/18/ | 1896-5 | | - SnaImplanted: Qty: 1 on | | | MEDICAL - | | 5 | [id number] | | 12/22/2019 by Melquiades Baez | | | STRAngelica | | | /NA | | DO [place] at [facility] | | | | | | /[id number] | | [facility] | | | | | | 9B | + +--------+------+ +--------+--------+--------+ | Screw Xochitl F/T T2 Ti 5x37.5mm | Screw | | CHASIDY | | 10/18/ | 1896-5 | | - SnaImplanted: Qty: 1 on | | | MEDICAL - | | 2024 | [id number] | | 12/22/2019 by Melquiades Baez | | | KEILA | | | /NA | | DO [place] at [facility] | | | | | | /[id number] | | [facility] | | | | | | 99 | + +--------+------+ +--------+--------+--------+ | Trochanteric NailImplanted: | | | [place] | | 07/20/ | 3125-1 | | Qty: 1 on 12/22/2019 by | | | Medical | | 4 | 200S | | Melquiades Baez DO at [facility] | | | | | | /NA | | [facility] | | | | | | /[id number] | | [place] | | | | | | E8 | + +--------+------+ +--------+--------+--------+ Procedures + +--------+ + + + | Procedure Name | Priori | Date/Time | Associated Diagnosis | Comments | | | ty | | | | + +--------+ + + + | XR HIP RIGHT 2-3 | Routin | 02/18/2020 | Right hip pain | Results for this | | VIEWS | e | 1:27 PM | | procedure are in the | | | | PDT | | results section. | + +--------+ + + + | LABS - EXTERNAL SCAN | | 02/13/2020 | | Results for this | | | | 12:00 AM | | procedure are in the | | | | PDT | | results section. | + +--------+ + + + | ECG 12 LEAD | Routin | 02/06/2020 | Permanent atrial | Results for this | | | e | 12:55 PM | fibrillation (HCC) | procedure are in the | | | | PDT | | results section. | + +--------+ + + + | LABS - EXTERNAL SCAN | | 02/04/2020 | | Results for this | | | | 12:00 AM | | procedure are in the | | | | PDT | | results section. | + +--------+ + + + | BASIC METABOLIC | Routin | 02/04/2020 | | Results for this | | PANEL | e | | | procedure are in the | | | | | | results section. | + +--------+ + + + | LABS - EXTERNAL SCAN | | 01/27/2020 | | Results for this | | | | 12:00 AM | | procedure are in the | | | | PDT | | results section. | + +--------+ + + + | URINALYSIS | Routin | 01/27/2020 | | Results for this | | | e | | | procedure are in the | | | | | | results section. | + +--------+ + + + | MAGNESIUM | Routin | 01/27/2020 | | Results for this | | | e | | | procedure are in the | | | | | | results section. | + +--------+ + + + | CBC NO DIFFERENTIAL | Routin | 01/27/2020 | | Results for this | | | e | | | procedure are in the | | | | | | results section. | + +--------+ + + + | RENAL FUNCTION PANEL | Routin | 01/27/2020 | | Results for this | | | e | | | procedure are in the | | | | | | results section. | + +--------+ + + + | LABS - EXTERNAL SCAN | | 01/22/2020 | | Results for this | | | | 12:00 AM | | procedure are in the | | | | PDT | | results section. | + +--------+ + + + | RENAL FUNCTION PANEL | Routin | 01/22/2020 | | Results for this | | | e | | | procedure are in the | | | | | | results section. | + +--------+ + + + | XR HIP RIGHT 2-3 | Routin | 01/21/2020 | Right hip pain | Results for this | | VIEWS | e | 1:49 PM | | procedure are in the [...] + +--------+ + + + | *TERMED* CA UPPER GI | Routin | 12/29/2019 | [...] + +--------+ + + + | FL Mckayla RIVERA | Routin | 12/22/2019 | | Results for this | | | e | 10:28 AM | | procedure are in the | | | | PDT | | results section. | + +--------+ + + + | POC ISNATHANAEL JARAMILLO, | Routin | 12/22/2019 | | Results [...] | + +--------+ + + + | HAVEN THURSTON8, | Routin | 12/22/2019 | | Results [...] +---+--------+ + +--------+ +---+ + | POC ISTAT, CG8, | Routin [...] results section. | + +--------+ +---+ + from Last 3 Months Results XR Hip Right 2-3 Views (02/18/2020 1:27 PM PDT)Only the most recent of 2 results within e time period is included. + + | Specimen | + + | | + + + + + | Narrative | Performed At | + + + | History: This | [facility] | | is a 89 y.o. year old male. Diagnosis for Order 1. Right hip pain | | | . Findings: 2 views the right hip demonstrate a proximal humerus | | | fracture in good position. No evidence of loosening. No loss of | | | fixation. No evidence of movement.. Impression: Healing | | | intertrochanteric hip fracture. Electronically signed by: Melquiades Mike | | | DO Sasha 02/18/2020 1:54 PM PDT Melquiades Baez DO has created this | | | entry using [employer] Recognition software and EPIC | | | macros. The entry has been reviewed and there may still exist sound | | | alike word errors. | | | | | |Electronically signed by: Melquiades Baez DO 02/18/2020 1:54 PM PDT | | | | | | | | |Melquiades Baez DO has created this entry using [employer] | | |Recognition software and [employer] macros. The entry has been reviewed and | | |there may still exist sound alike word errors. | | | | | + + + + +---------+ + + | Performing | Address | City/State/Zipcode | Phone Number | | Organization | | | | + +---------+ + + | [facility] | | | | + +---------+ + + LABS - EXTERNAL SCAN (02/13/2020 12:00 AM PDT)Only the most recent of 4 results within the time period is included. + + + | Narrative | Performed At | + + + | Ordered by an | | | unspecified provider. | | + + + ECG 12 lead (02/06/2020 12:55 PM PDT)Only the most recent of 3 results within the time catalino od is included. + + + + + + | Component | Value | Ref Range | Performed | Pathologist | | | | | At | Signature | + + + + + + | VENTRICULAR | 64 | BPM | [facility] | | | RATE EKG | | | | | + + + + + + | ATRIAL RATE | 104 | BPM | [facility] | | + + + + + + | QRS | 166 | ms | [facility] | | | DURATION | | | | | + + + + + + | Q-T | 502 | ms | [facility] | | | INTERVAL | | | | | + + + + + + | Q-T | 517 | ms | [facility] | | | INTERVAL | | | | | | (CORRECTED) | | | | | + + + + + + | QRS AXIS | 159 | degrees | [facility] | | + + + + + + | T AXIS | -74 | degrees | [facility] | | + + + + + + | INTERPRETAT | Ventricular-paced rhythm | | [facility] | | | ION TEXT | with Premature | | | | | | ventricular | | | | | | complexesAbnormal | | | | | | ECGWhen compared with | | | | | | ECG of 26-DEC-2019 | | | | | | 23:45,No significant | | | | | | change was | | | | | | foundConfirmed by STACY | | | | | | TERRANCE CASTANEDA ([id number]) on | | | | | | 02/09/2020 3:18:21 PM | | | | + + [...] + +---------+ + + Basic Metabolic Panel (02/04/2020)Only the most recent of 10 results within the time period is included. + + + + + + | Component | Value | Ref Range | Performed | Pathologist | | | | | At | Signature | + + + + + + | Na | 137 | 132 - 143 | | | | | | mmol/L | | | + + + + + + | K | 5.1 | 3.2 - 5.7 | | | | | | mmol/L | | | + + + + + + | Cl | 99 | 95 - 112 mmol/L | | | + + + + + + | CO2 | 29 | 19 - 31 mmol/L | | | + + + + + + | Anion Gap | 17 | 7 - 21 mmol/L | | | + + + + + + | Glucose | 124 (A) | 70 - 100 mg/dL | | | + + + + + + | Calcium | 8.4 (A) | 8.5 - 10.3 | | | + + + + + + | BUN | 91 (A) | 6 - 23 mg/dL | | | + + + + + + | Creatinine | 2.44 (A) | 0.70 - 1.11 | | | + + + + + + | Estimated | 25.0 | >60 | | | | GFR | | mL/min/1.73m2 | | | + + + + + + | BUN/Creatin | 37.3 (A) | 6 - 28.6 | | | | ine Ratio | | | | | + + + + + + + + | Specimen | + + | Blood | + + CBC with Manual Differential (01/27/2020) + + + + + + | Component | Value | Ref Range | Performed | Pathologist | | | | | At | Signature | + + + + + + | WBC | 11.7 (A) | 4.5 - 11.0 | | | + + + + + + | Red Blood | 2.96 (A) | 4.30 - 5.70 | | | | Cells | | M/uL | | | + + + + + + | Hemoglobin | 10 (A) | 13.5 - 18.0 | | | + + + + + + | Hematocrit, | 30.2 (A) | 41.0 - 50.0 % | | | | POC | | | | | + + + + + + | MCV | 102.1 (A) | 81.0 - 99.0 fL | | | + + + + + + | MCH | 34.0 (A) | 27.0 - 33.0 pg | | | + + + + + + | MCHC | 33.0 | 30.0 - 36.0 | | | | | | g/dL | | | + + + + + + | Platelet | 116 (A) | 140 - 440 | | | | Count | | | | | | Plasma | | | | | + + + + + + | RDW | 18.4 (A) | 10.5 - 15.0 | | | + + + + + + | BAL | 87 (A) | 39 - 80 % | | | | Neutrophils | | | | | | % | | | | | + + + + + + | % | 4.4 (A) | 24 - 44 | | | | Lymphocytes | | | | | + + + + + + | Monocyte % | 7.4 | 0 - 12 | | | + + + + + + | Eosinophils | 0.5 | 0 - 6 | | | | % | | | | | + + + + + + | % | 1 | 0 - 2 % | | | | Basophils, | | | | | | Body Fluid | | | | | + + + + + + + + | Specimen | + + | Blood | + + Urinalysis (01/27/2020) + + + + + + | Component | Value | Ref Range | Performed | Pathologist | | | | | At | Signature | + + + + + + | Color | yellow | | | | + + + + + + | Clarity, | Clear | | | | | Urine | | | | | + + + + + + | Specific | 1.007 | 1.001 - 1.030 | | | | Cornell, | | | | | | Urine | | | | | + + + + + + | pH, Urine | 5.0 | 5.0 - 8.0 | | | + + + + + + | Protein, | Negative | Negative | | | | Urine | | | | | + + + + + + | Glucose, | Negative | Negative | | | | Urine | | | | | + + + + + + | Ketones, | Negative | Negative | | | | Urine | | | | | + + + + + + | Bilirubin, | Negative | Negative | | | | Urine | | | | | + + + + + + | Blood, | Moderate (A) | Negative | | | | Urine | | | | | + + + + + + | Nitrite, | Negative | Negative | | | | Urine | | | | | + + + + + + | Urobilinoge | Normal | < 0.2 mg/dL, | | | | n, Urine | | 1.0 mg/dL, 4.0 | | | | | | mg/dL, Normal, | | | | | | 1.0 E.U./dL, | | | | | | 0.2 E.U./dL, | | | | | | 0.2 mg/dL, | | | | | | Negative, 1 | | | | | | mg/dL, <2.0 | | | | | | mg/dL | | | + + + + + + | Leukocyte | Negative | Negative | | | | Esterase, | | | | | | Urine | | | | | + + + + + + | CASTS | Negative | | | | + + + + + + | WBC UA | 0 | /HPF | | | + + + + + + | RBC UA | 30 | /HPF | | | + + + + + + | EPITHELIAL | 1 | /LPF | | | | CASTS UA | | | | | + + + + + + | CRYSTAL UA | Negative | | | | + + + + + + | Bacteria, | 1+ (A) | Negative /HPF | | | | Urine | | | | | + + + + + + + + | Specimen | + + | Urine | + + Magnesium (01/27/2020)Only the most recent of 5 results within the time period is included. + +-------+ + + + | Component | Value | Ref Range | Performed | Pathologist | | | | | At | Signature | + +-------+ + + + | MG | 2.0 | 1.7 - 2.5 | | | + +-------+ + + + + + | Specimen | + + | Blood | + + Renal Function Panel (01/27/2020)Only the most recent of 4 results within the time period i s included. + + + + + + | Component | Value | Ref Range | Performed | Pathologist | | | | | At | Signature | + + + + + + | Na | 137 | 132 - 143 | | | | | | mmol/L | | | + + + + + + | K | 4.0 | 3.6 - 5.1 | | | | | | mmol/L | | | + + + + + + | Cl | 101 | 95 - 112 mmol/L | | | + + + + + + | CO2 | 23 | 19 - 31 mmol/L | | | + + + + + + | Anion Gap | 17 | 7 - 21 mmol/L | | | + + + + + + | Glucose | 124 (A) | 70 - 100 mg/dL | | | + + + + + + | BUN | 72 (A) | 6 - 23 mg/dL | | | + + + + + + | Creatinine | 2.06 (A) | 0.70 - 1.11 | | | | | | mg/dL | | | + + + + + + | Estimated | 31.0 (A) | 60.0 - 140.0 | | | | GFR | | mL/min/1.73m2 | | | + + + + + + | BUN/Creatin | 35 (A) | 6 - 28.6 | | | | ine Ratio | | | | | + + + + + + | Calcium | 8.7 | 8.5 - 10.3 | | | + + + + + + | AST | 27 | 13 - 39 U/L | | | + + + + + + | ALT | 19 | 7 - 52 U/L | | | + + + + + + | ALP, | 130 (A) | 31 - 120 | | | | External | | | | | + + + + + + | BILIRUBIN, | 1.1 | 0.0 - 1.2 | | | | TOTAL | | | | | + + + + + + | Protein, | 6.6 | 6.0 - 8.3 | | | | Total | | | | | + + + + + + | Albumin | 3.8 | 3.5 - 5.0 g/dL | | | + + + + + + | Globulin | 2.8 | 1.8 - 3.5 | | | + + + + + + | Albumin/Reema | 1.4 | 1.1 - 2.4 | | | | bulin Ratio | | | | | + + + + + + + + | Specimen | + + | Blood | + + POC Glucose (01/01/2020 11:24 AM PDT)Only the most recent of 45 results within the time per iod is included. + + + + + + | Component | Value | Ref Range | Performed | Pathologist | | | | | At | Signature | + + + + + + | Glucose, | 237 (H)Comment: Testing | 65 - 99 mg/dL | [facility] | | | POC | performed at [facility];[address] | | LABORATORY | | | | [address];[place], [place] | | | | | | [address] | | | | + + + + + + + + | Specimen | + + | | + + + + + + + | Performing | Address | City/State/Zipcode | Phone Number | | Organization | | | | + + + + + | [facility] | [address] | [place] [address] | [phone] | + + + + + CBC with Differential (01/01/2020 4:07 AM PDT)Only the most recent of 7 results within the time period is included. + + + + + + | [...] 0.02Comment: Testing | 0.00 - 0.10 | [facility] | | | Absolute | performed at [facility];[address] | [address] | LABORATORY | | | | [address];[place] | | | | | | [address] | | | | + + + + + + + + | Specimen | + + | Blood | + + + + + + + | Performing | Address | City/State/Zipcode | Phone Number | | Organization | | | | + + + + + | [facility] | [address] | [place] [address] | [phone] | + + + + + Hemoglobin and Hematocrit (12/29/2019 9:46 PM PDT)Only the most recent of 5 results within the time period is included. + + + + + + | [...] [facility] | | | | performed at [facility];[address] | | LABORATORY | | | | [facility];[place], [place] | | | | | | [address] | | | | + + + + + + + + | Specimen | + + | Blood | + + + + + + + | Performing | Address | City/State/Zipcode | Phone Number | | Organization | | | | + + + + + | [facility] | [address] | [place] [address] | [phone] | + + + + + Surgical [...] and consists of two | | | white-psacal soft tissue fragment(s) that measure 0.2 and [...] | | technical component was performed by [facility], [address] [place] [address] | | | [place] [address] (Syrup Machine Laborer: Padmini Sellers MD; CLIA# | | | [id number]). Professional interpretation was performed by[facility] | | | [place], [address], | | | [place] [address] (Syrup Machine Laborer: Oscar Maynard M.D.; CLIA#: | | | [id number]). Diagnostician: Padmini Sellers | | | MDPathologistElectronically [...] | |The technical component was performed by [facility], [address] [place] [address] (Syrup Machine Laborer: Padmini Sellers MD; CLIA# [id number]). Professional interpretation was performed by | | |[facility], [address] [address] (Syrup Machine Laborer: Oscar Maynard M.D.; CLIA#: [id number]). | | | | | |Diagnostician: Padmini [...] Performed At | + + + | [facility] | [facility] | | [facility] | [facility] | | [facility] | | | Patient Name: Andres Guzmán | | | Procedure Date: 12/29/2019 8:36 AMMRN: [id number] | | | of : 1930 | [...] the anesthesiologist and the | | | equipment technician in the pre-procedure area in the [...] | | | with Gold probe 7 Swedish x 5 pulses was successful with | [...] | | | AMNumber of Addenda: 0 [facility] | | | - Check hemoglobin q 6 hours for one day. | | | | | | | | |LAMONT HERNANDEZ MD | | |12/29/2019 10:19:54 AM | | |This report has been signed electronically. | | | | | |Note Initiated On: 12/29/2019 8:36 AM | | |Number of Addenda: 0 | | | | | | [facility] | | + + + + +---------+ + + | Performing | Address | City/State/[facility] | Phone Number | | Organization | | | | + +---------+ + + | [facility] | | | | + +---------+ + + Protime INR (12/29/2019 3:53 AM PDT)Only the most recent of 2 results within the time catalino od is included. + + + + + + | Component | Value | Ref Range | Performed | Pathologist | | | | | At | Signature | + + + + + + | INR | 1.3Comment: REFERENCE | | [facility] | | | [...] | | | | | performed at [facility] | | | | | | [facility];[place], [place] | | | | | | [address] | | | | + + + + + + + + | Specimen | + + | Blood | + + + + + + + | Performing | Address | City/State/Zipcode | Phone Number | | Organization | | | | + + + + + | [facility] | [address] | [place] [address] | [phone] | + + + + + Fecal Hemoglobin (12/28/2019 7:20 PM PDT) + + + + + + | Component | Value | Ref Range | Performed | Pathologist | | | | | At | Signature | + + + + + + | FECAL | POSITIVE (A)Comment: | NEG | [facility] | | | OCCULT BLD | Testing performed at | | LABORATORY | | | | [facility];[address];[place] [address] | | | | + + + + + + + + | Specimen | + + | Stool - Stool | | specimen (specimen) | + + + + + + + | Performing | Address | City/State/Zipcode | Phone Number | | Organization | | | | + + + + + | [facility] | [address] | [place] [address] | [phone] | + + + + + Red Blood Cells (PRBC) - Transfuse (12/27/2019 11:34 PM PDT)Only the most recent of 2 resul ts within the time period is included.Red Blood Cells (PRBC) - Crossmatch (12/27/2019 2:31 PM PDT)Only the most recent of 2 results within the time period is included. + + + + + + | [...] BANK | Testing performed at | | [facility] | | | COMMENT | [facility];[address] | LABORATORY | | | [address];[place] [address] | | | | + + + + + + + + | Specimen | + + | | + + + + + + + | Performing | Address | City/State/Zipcode | Phone Number | | Organization | | | | + + + + + | [facility] | [address] | [place] [address] | [phone] | + + + + + Type and Screen (12/27/2019 2:31 PM PDT)Only the most recent of 2 results within the time period is included. + + + + + + | [...] + + + | BB BAND | [id number] | | [facility] | | | | | | LABORATORY | | + + + + + + | UNIT # | [id number] | | [facility] | | | | [...] + + + | UNIT # | [id number] | | [facility] | | | | [...] | | | RESULT | performed at [facility];[address] | | LABORATORY | | | | [address];[place], [place] | | | | | | [address] | | | | + + + + + + + + | Specimen | + + | Blood | + + + + + + + | Performing | Address | City/State/Zipcode | Phone Number | | Organization | | | | + + + + + | [facility] | [address] | [place] [address] | [phone] | + + + + + Procalcitonin (12/27/2019 5:04 AM PDT)Only the most recent of 2 results within the time bindu toscano is included. + + + + + + | Component | Value | Ref Range | Performed | Pathologist | | | | | At | Signature | + + + + + + | PROCALCITON | 0.41Comment: | <0.5 ng/mL [facility] | | | IN | INTERPRETIVE [...] | | | | | | at [facility];[address] [place] [address] | | | | | | [facility];[place] [address] | | | | + + + + + + + + | Specimen | + + | Blood | + + + + + + + | Performing | Address | City/State/Zipcode | Phone Number | | Organization | | | | + + + + + | [facility] | [address] | [place] [address] | [phone] | + + + + + Vitamin D, Deficiency Screen (25-Hydroxy) (12/27/2019 5:04 AM PDT) + + + + + + | Component | Value | Ref Range | Performed | Pathologist | | | | | At | Signature | + + + + + + | Vit D, | 25.2 (L)Comment: Vitamin | 30.0 - 100.0 | [facility] | | | 25-Hydroxy | D deficiency has been | ng/mL | LABORATORY | | | | defined by the [place] | | | | | | ofMedicine [...] IOM | | | | | | ([place] of [employer]). | | | | | [...] | | | | | performed at [facility], | | | | | | [address], | | | | | | [facility] [address] | | | | + + + + + + + + | Specimen | + + | Blood | + + + + + + + | Performing | Address | City/State/Zipcode | Phone Number | | Organization | | | | + + + + + | [facility] | [address] | [place] [address] | [phone] | + + + + + Potassium (12/27/2019 12:08 AM PDT) + + + + + + | Component | Value | Ref Range | Performed | Pathologist | | | | | At | Signature | + + + + + + | K | 4.0Comment: Testing | 3.5 - 4.9 | [facility] | | | | performed at [facility];[address] | mmol/L | LABORATORY | | | | [address];[place] | | | | | | [address] | | | | + + + + + + + + | Specimen | + + | Blood | + + + + + + + | Performing | Address | City/State/Zipcode | Phone Number | | Organization | | | | + + + + + | [facility] | [address] | [place] [address] | [phone] | + + + + + Complement C3 Ag (12/26/2019 12:33 PM PDT) + + + + + + | Component | Value | Ref Range | Performed | Pathologist | | | | | At | Signature | + + + + + + | C3 | 53 (L)Comment: Testing | 82 - 167 mg/dL | [facility] | | | COMPLEMENT | performed at [facility], | | LABORATORY | | | | [address], | | | | | | [place] [address] | | | | + + + + + + + + | Specimen | + + | | + + + + + + + | Performing | Address | City/State/Zipcode | Phone Number | | Organization | | | | + + + + + | [facility] | [address] | [place] [address] | [phone] | + + + + + Complement C4 Ag (12/26/2019 12:33 PM PDT) + + + + + + | Component | Value | Ref Range | Performed | Pathologist | | | | | At | Signature | + + + + + + | C4 | 15Comment: Testing | 14 - 44 mg/dL | [facility] | | | COMPLEMENT | performed at [facility], | | LABORATORY | | | | [address], | | | | | | [facility] [address] | | | | + + + + + + + + | Specimen | + + | | + + + + + + + | Performing | Address | City/State/Zipcode | Phone Number | | Organization | | | | + + + + + | [facility] | [address] | [place] [address] | [phone] | + + + + + Parathyroid Hormone, Intraoperative (12/26/2019 4:25 AM PDT) + + + + + + | Component | Value | Ref Range | Performed | Pathologist | | | | | At | Signature | + + + + + + | PTH Intact | 167.0 (H)Comment: | 8.7 - 79.6 | [facility] | | | | Testing performed at | pg/mL | LABORATORY | | | | [facility];[address];[place] [address] | | | | + + + + + + + + | Specimen | + + | | + + + + + + + | Performing | Address | City/State/Zipcode | Phone Number | | Organization | | | | + + + + + | [facility] | [address] | [place] [address] | [phone] | + + + + + ECHO [...] | | | + +---------+ + + CK Total (12/25/2019 4:25 AM PDT)Only the most recent of 2 results within the time period is included. + + + + + + | Component | Value | Ref Range | Performed | Pathologist | | | | | At | Signature | + + + + + + | CK TOTAL | 104Comment: Testing | 55 - 400 U/L | [facility] | | | | performed at [facility];[address] | | LABORATORY | | | | [address];[place] | | | | | | [address] | | | | + + + + + + + + | Specimen | + + | Blood | + + + + + + + | Performing | Address | City/State/Zipcode | Phone Number | | Organization | | | | + + + + + | [facility] | [address] | [place] [address] | [phone] | + + + + + Immunoglobulin, Free Light Chain (12/25/2019 4:22 AM PDT) + + + + + + | Component | Value | Ref Range | Performed | Pathologist | | | | | At | Signature | + + + + + + | Island Free | 121.2 (H) | 3.3 - [...] + + + + + + | Island/Lambd | 1.25Comment: Testing | 0.26 - 1.65 | [facility] | | | a Free | performed at [facility] | | LABORATORY | | | Light Chain | [place], [address] | | | | | Ratio | [place] [address] | | | | + + + + + + + + | Specimen | + + | Blood | + + + + + + + | Performing | Address | City/State/Zipcode | Phone Number | | Organization | | | | + + + + + | [facility] | [address] | [place] [address] | [phone] | + + + + + Sedimentation Rate (12/25/2019 4:22 AM PDT) + + + + + + | Component | Value | Ref Range | Performed | Pathologist | | | | | At | Signature | + + + + + + | ESR | 6Comment: Testing | 0 - 20 mm/Hr | [facility] | | | | performed at [facility], [address] | | LABORATORY | | | | [address], | | | | | | [place] [address] | | | | + + + + + + + + | Specimen | + + | Blood | + + + + + + + | Performing | Address | City/State/Zipcode | Phone Number | | Organization | | | | + + + + + | [facility] | [address] | [place] [address] | [phone] | + + + + + Glomerular Basement Membrane Ab, IgG (12/25/2019 4:22 AM PDT) + + + + + + | Component | Value | Ref Range | Performed | Pathologist | | | | | At | Signature | + + + + + + | Antiglomeru | 2Comment: | 0 - 20 units | [facility] | | | lar BM Ab, | [...] by | | | | | | [address] | | | | | | [place] | | | | | | [address] | | | | + + + + + + + + | Specimen | + + | Blood | + + + + + + + | Performing | Address | City/State/Zipcode | Phone Number | | Organization | | | | + + + + + | [facility] | [address] | [place] [address] | [phone] | + + + + + Hepatitis [...] | | | | | | 0.9The CDC recommends | | | | | | that a positive HCV | | | | | | antibody resultbe | | | | | | followed up with a HCV | | | | | | Nucleic Acid | | | | | | Amplificationtest | | | | | | ([id number]).Testing | | | | | | performed at [facility], | | | | | | [address], | | | | | | [facility] [address] | | | | + + + + + + + + | Specimen | + + | Blood | + + + + + + + | Performing | Address | City/State/Zipcode | Phone Number | | Organization | | | | + + + + + | [facility] | [address] | [place] [address] | [phone] | + + + + + Cytoplasmic [...] | | | | | with both CA-3 and | | | | | | MPO-ANCA enzyme | | | | | | immunoassays. [place] as | | | | | | [...] | | | | | performed by [facility], | | | | | | [address], | | | | | | [facility] [address] | | | | + + + + + + + + | Specimen | + + | Blood | + + + + + + + | Performing | Address | City/State/Zipcode | Phone Number | | Organization | | | | + + + + + | [facility] | [address] | [place] [address] | [phone] | + + + + + Lactate Dehydrogenase (12/25/2019 4:22 AM PDT) + + + + + + | Component | Value | Ref Range | Performed | Pathologist | | | | | At | Signature | + + + + + + | LDH TOTAL | 154Comment: Testing | 120 - 246 U/L | KR | | | | performed at [facility];[address] | | LABORATORY | | | | [address];[place], [place] | | | | | | [address] | | | | + + + + + + + + | Specimen | + + | Blood | + + + + + + + | Performing | Address | City/State/Zipcode | Phone Number | | Organization | | | | + + + + + | [facility] | [address] | [place] [address] | [phone] | + + + + + Protein/Creatinine Ratio, Urine (12/25/2019 12:01 AM PDT) + + + + + + | Component | Value | Ref Range | Performed | Pathologist | | | | | At | Signature | + + + + + + | PRO/CREA | 0.942Comment: Testing | | [facility] | | | RATIO,URINE | performed at [facility], [address] | | LABORATORY | | | | [address], | | | | | | [place] [address] | | | | + + + + + + + + | Specimen | + + | Urine | + + + + + + + | Performing | Address | City/State/Zipcode | Phone Number | | Organization | | | | + + + + + | [facility] | [address] | [place] [address] | [phone] | + + + + + Protein, Urine, Random (12/25/2019 12:01 AM PDT) + + + + + + | Component | Value | Ref Range | Performed | Pathologist | | | | | At | Signature | + + + + + + | Protein, | 131Comment: NO NORMAL | mg/dL | [facility] | | | Urine | RANGE ESTABLISHEDTesting | | LABORATORY | | | | performed at [facility], [address] | | | | | | [address], | | | | | | [place] [address] | | | | + + + + + + + + | Specimen | + + | | + + + + + + + | Performing | Address | City/State/Zipcode | Phone Number | | Organization | | | | + + + + + | [facility] | [address] | [place] [address] | [phone] | + + + + + Creatinine, Urine, Random (12/25/2019 12:01 AM PDT)Only the most recent of 2 results within the time period is included. + + + + + + | Component | Value | Ref Range | Performed | Pathologist | | | | | At | Signature | + + + + + + | Creatinine, | 139.0Comment: NO NORMAL | mg/dL | [facility] | | | random | RANGE ESTABLISHEDTesting | | LABORATORY | | | urine | performed at [facility], [address] | | | | | | [address], | | | | | | [place] [address] | | | | + + + + + + + + | Specimen | + + | | + + + + + + + | Performing | Address | City/State/Zipcode | Phone Number | | Organization | | | | + + + + + | [facility] | [address] | [place] [address] | [phone] | + + + + + XR Chest 2 Vws (12/24/2019 [...] nonspecific. | | | Signed by: Haydee Reynaga, Neri Sign Date/Time: 12/24/2019 2:31 PM | | [...] + | Kobe, Rad Results In 12/24/2019 2:35 PM PDT | | ULTRASOUND [...] + + | Performing | Address | City/State/[facility] | Phone Number | | Organization | [...] | | | Arterial, | performed at [facility];[address] | | LABORATORY | | | POC | [address];[place], [place] | | | | | | [address] | | | | + + + + + + + + | Specimen | + + | | + + + + + + + | Performing | Address | City/State/Zipcode | Phone Number | | Organization | | | | + + + + + | [facility] | [address] | [place] [address] | [phone] | + + + + + Coronavirus (COVID-19) NAAT (12/24/2019 1:10 PM PDT) + + + + + + | Component | Value | Ref Range | Performed | Pathologist | | | | | At | Signature | + + + + + + | SARS-CoV-2, | NEGATIVEComment: Testing | NEG | KR | | | NAAT | performed at [facility];[address] | | LABORATORY | | | (COVID-19) | [address];[place], [place] | | | | | | [address] | | | | + + + + + + + + | Specimen | + + | Tissue - Entire | | nasopharynx (body | | structure) | + + + + + + + | Performing | Address | City/State/Zipcode | Phone Number | | Organization | | | | + + + + + | [facility] | [address] | [place] [address] | [phone] | + + + + + Culture, Blood (12/24/2019 1:02 PM PDT)Only the most recent of 2 results within the time sharon andino is included. + + + + + + | [...] [facility] | | | Requests | [facility] | LABORATORY | | | | [address];[place] [address] | | | | + + + + + + | RESULT | NO GROWTH 6 DAYS | | [facility] | | | | | | LABORATORY | | + + + + + + | RESULT | Testing performed at | | [facility] | | | | TCL, [address] | | LABORATORY | | | | [address], [place], [place] | | | | | | [address]Bthesgt: Testing | | | | | | performed at [facility], [address] | | | | | | [address], [place], [place] | | | | | | [address] | | | | + + + + + + + + | Specimen | + + | Blood - Peripheral | | blood specimen | | (specimen) | + + + + + + + | Performing | Address | City/State/Zipcode | Phone Number | | Organization | | | | + + + + + | [facility] | [address] [facility] | [place] [address] | [phone] | + + + + + Urinalysis [...] - 1.030 | [facility] | | | [place], | | | LABORATORY | | | [...] | | Urine | performed at [facility], [address] | | LABORATORY | | | | [address], | | | | | | [place] [address] | | | | + + + [...] | + + + + + | [facility] | [address] | [place] [address] | [phone] | + + + + + Sodium, [...] | | urine | performed at [facility], [address] | | | | | | [address], | | | | | | [place] [address] | | | | + + + [...] | + + + + + | [facility] | [address] | [place] [address] | [phone] | + + + + + Lactic Acid (12/24/2019 12:27 PM PDT) + + + + + + | Component | Value | Ref Range | Performed | Pathologist | | | | | At | Signature | + + + + + + | Lactate, | 1.6Comment: Testing | 0.4 - 2.0 | KR | | | Serum | performed at [facility];[address] | mmol/L | LABORATORY | | | | [address];[place], [place] | | | | | | [address] | | | | + + + + + + + + | Specimen | + + | Blood | + + + + + + + | Performing | Address | City/State/Zipcode | Phone Number | | Organization | | | | + + + + + | [facility] | [address] | [place] [address] | [phone] | + + + + + CBC no Differential (12/24/2019 4:21 AM PDT)Only the most recent of 2 results within the period is included. + + + + + + | [...] LABORATORY | | | | performed at [facility];[address] | | | | | | [address];[place] | | | | | | [address] | | | | + + + + + + + + | Specimen | + + | Blood | + + + + + + + | Performing | Address | City/State/Zipcode | Phone Number | | Organization | | | | + + + + + | [facility] | [address] | [place] [address] | [phone] | + + + + + Phosphorus (12/23/2019 4:04 AM PDT) + + + + + + | Component | Value | Ref Range | Performed | Pathologist | | | | | At | Signature | + + + + + + | Phosphorus | 4.6Comment: Testing | 2.3 - 4.8 mg/dL | [facility] | | | | performed at [facility];[address] | | LABORATORY | | | | [address];[place] | | | | | | [address] | | | | + + + + + + + + | Specimen | + + | Blood | + + + + + + + | Performing | Address | City/State/Zipcode | Phone Number | | Organization | | | | + + + + + | [facility] | [address] | [place] [address] | [phone] | + + + + + Hemoglobin (12/22/2019 9:37 PM PDT) + + + + + + | Component | Value | Ref Range | Performed | Pathologist | | | | | At | Signature | + + + + + + | Hemoglobin | 9.1 (L)Comment: Testing | 13.2 - 17.0 | ALEX | | | | performed at [facility];[address] | g/dL | LABORATORY | | | | [address];[place], [place] | | | | | | [address] | | | | + + + + + + + + | Specimen | + + | Blood | + + + + + + + | Performing | Address | City/State/Zipcode | Phone Number | | Organization | | | | + + + + + | [facility] | [address] | [place] [address] | [phone] | + + + + + Hematocrit (12/22/2019 9:37 PM PDT) + + + + + + | Component | Value | Ref Range | Performed | Pathologist | | | | | At | Signature | + + + + + + | Hematocrit | 27.4 (L)Comment: Testing | 39.0 - 50.0 % | [facility] | | | | performed at [facility];[address] | | LABORATORY | | | | [address];[place], [place] | | | | | | [address] | | | | + + + + + + + + | Specimen | + + | Blood | + + + + + + + | Performing | Address | City/State/Zipcode | Phone Number | | Organization | | | | + + + + + | [facility] | [address] | [place] [address] | [phone] | + + + + + Red Blood Cells (PRBC) - Transfuse (12/22/2019 5:12 PM PDT)Only the most recent of 2 resul ts within the time period is included.NATHALIA C-Arm (12/22/2019 10:28 AM PDT) + + | Specimen | + + | | + + + + + | Impressions | Performed At | + + + | Fluoroscopic service for right hip fixation. This report is for | [facility] | | radiation documentation purposes only. Signed by: Denis, | | | Eliezer Lindsey Sign Date/Time: 12/22/2019 10:44 AM | | + [...] + | Kobe, Rad Results In - 12/22/2019 10:47 AM PDT | | FLUOROSCOPY C ARM | | | | CLINICAL INFORMATION: | | NAILING IM BESTY FEMUR - GAMMA NAIL - Right | [...] POC ISTAT, CG8, Arterial (12/22/2019 10:03 AM PDT)Only the most recent of 3 results within the time period is included. + + + + + + | [...] | | | POC | performed at [facility];[address] | g/dL | LABORATORY | | | | [address];[place] | | | | | | [address] | | | | + + + + + + + + | Specimen | + + | | + + + + + + + | Performing | Address | City/State/Zipcode | Phone Number | | Organization | | | | + + + + + | [facility] | [address] | [place] [address] | [phone] | + + + + + Airway (12/22/2019 9:14 AM PDT) + + [...] easy External maneuver: head lift Successful technique: Charles | | | Laryngoscope blade size: 2 [...] | documentation. | | + + + POC ISTAT, CG8, Venous [...] | | | POC | performed at [facility];[address] | g/dL | LABORATORY | | | | [address];[place], [place] | | | | | | [address] | | | | + + + + + + + + | Specimen | + + | | + + + + + + + | Performing | Address | City/State/Zipcode | Phone Number | | Organization | | | | + + + + + | [facility] | [address] | [place] [address] | [phone] | + + + + + from Last 3 Months Insurance + +--------+ +--------+ +---------+--------+ | Payer | Benefi | Subscriber | Effect | Phone | Address | Type | | | t Plan | ID | danilo | | | | | | / | | Dates | | | | | | Group | | | | | | + +--------+ +--------+ +---------+--------+ | MEDICARE | MEDICA | [id number] | 04/21/19 | [phone] | | Medica | | | RE | | 97-Pre | 5 | | re | | | PART A | | sent | | | | | | AND B | | | | | | + +--------+ +--------+ +---------+--------+ | INDIVIDUAL ASSURANCE | INDIVI | [id number] | | | | Indemn | | COMPANY | DUAL | | 016-Pr | | | ity | | | ASSURA | | esent | | | | | | [place]CE [place] | | | | | | | | MDCR | | | | | | | | SUPPL | | | | | | + +--------+ +--------+ +---------+--------+ + +--------+ +--------+ + + | Guarantor Name | Accoun | Relation to | Date | Phone | Billing Address | | | t Type | Patient | of | | | | | | | | | | + +--------+ +--------+ + + | Andres Guzmán | Person | Self | [birth year] | [address] | | Robert | al/Fam | | 1930 | [phone] | [place] | | | quique | | | 1 (Home) | [address] | + +--------+ +--------+ + + Advance Directives + + + + + | Type | Date Recorded | Patient | Explanation | | | | 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
--- OUTSIDE RECORDS SUMMARY | ~2020-03-05 | XMS | Encounter Summary ---
Demographics + + + | Address | [address] | | | [place] [address] | + + + | Home Phone | | + + + | Preferred Language | Unknown | + + + | Marital Status | | + + + | Synagogue Affiliation | 1001 | + + + [...] [place] | | | | | [address] | | + + + + + | Deanna Lawson | ECON | Unknown | | + + + + + Care Team Providers + +------+ + | Care Test Kitchen Home Economist Name | Role | Phone | + [...] | Chronic kidney | | | | [place], [place] | [phone] | disease, stage III | | | | [address] | | (moderate) ([facility]); | | | | [phone] | | Chronic diastolic | | | | | | heart failure ([facility]) | +--------+ + + + + Social [...] Surgery | Melquiades Baez | | | 2020 | Visit | | [address] | | | | | | [address] | | | | | | [place] [address] | | | | | | [phone] | | | | | | | | +--------+---------+ + + + | 04/21/ | Office | Nephrology | Isiah Jade MD | | | 2019 | Visit | | [address] | | | | | | [address] [place] | | | | | | [address] | | | | | | | | +--------+---------+ + + + | 05/07/ | Office | Cardiology | Charlee Oswald | | | 2019 | Visit | | [address] | | | | | | [address] | | | | | | [place] [address] | | | | | | [phone] | | | | | | | [...] | | | | | | (moderate) ([facility]) | | + +------+--------+ + + | CBC with | Lab | Routin | Chronic diastolic | Expected: | | Differential | | e | heart failure ([facility]) | 12/27/2018, Expires: | | | | | Essential (primary) | 12/27/2019 | | | | | hypertension | | | | | | Chronic kidney | | | | | | disease, stage III | | | | | | (moderate) ([facility]) | | + +------+--------+ + + | Protein/Creatinine | Lab | Routin | Chronic diastolic | Expected: | | Ratio, Urine | | e | heart failure ([facility]) | 12/27/2018, Expires: | | | | | Essential (primary) | 12/27/2019 | | | | | hypertension | | | | | | Chronic kidney | | | | | | disease, stage III | | | | | | (moderate) ([facility]) | | + +------+--------+ + + | Urinalysis with | Lab | Routin | Chronic diastolic | Expected: | | Microscopic if | | e | heart failure (HCC) | 12/27/2018, Expires: | | Indicated | | | Essential (primary) | 12/27/2019 | | | | | hypertension | | | | | | Chronic kidney | | | | | | disease, stage III | | | | | | (moderate) ([facility]) | | + +------+--------+ + + | Uric Acid | Lab | Routin | Chronic diastolic | Expected: | | | | e | heart failure ([facility]) | 12/27/2018, Expires: | | | | | Essential (primary) | 12/27/2019 | | | | | hypertension | | | | | | Chronic kidney | | | | | | disease, stage III | | | | | | (moderate) ([facility]) | | + +------+--------+ + + | Renal Function Panel | Lab | Routin | Chronic kidney | Expected: | | | | e | disease, stage III | 03/21/2019, Expires: | | | | | (moderate) ([facility]) | 08/19/2020 | + +------+--------+ + + | CBC with | Lab | Routin | Chronic kidney | Expected: | | Differential | | e | disease, stage III | 03/21/2019, Expires: | | | | | (moderate) ([facility]) | 08/19/2020 | + +------+--------+ + + | Magnesium | Lab | Routin | Chronic kidney | Expected: | | | | e | disease, stage III | 03/21/2019, Expires: | | | | | (moderate) ([facility]) | 08/19/2020 | + +------+--------+ + + | Uric Acid | Lab | Routin | Chronic kidney | Expected: | | | | e | disease, stage III | 03/21/2019, Expires: | | | | | (moderate) ([facility]) | 08/19/2020 | + +------+--------+ + + | Parathyroid Hormone, | Lab | Routin | Chronic kidney | Expected: | | Intact | | e | disease, stage III | 03/21/2019, Expires: | | | | | (moderate) ([facility]) | 08/19/2020 | + +------+--------+ + + | Protein/Creatinine | Lab | Routin | Chronic kidney | Expected: | | Ratio, Urine | | e | disease, stage III | 03/21/2019, Expires: | | | | | (moderate) (HCC) | 08/19/2020 | + +------+--------+ + + [...]
--- OUTSIDE RECORDS SUMMARY | ~2020-03-05 | XMS | Encounter Summary ---
Demographics + + + | Address | [address] | | | [place] [address] | + + + | Home Phone | | + + + | Preferred Language | Unknown | + + + | Marital Status | | + + + | Zoroastrianism Affiliation | 1001 | + + + | Race | Unknown | + + + | Ethnic Group | Unknown | + + + Author + + + | Author | [facility] | | | and [place] | + + + | Organization | [facility] | | | [...] [place] | | | | | [address] | | + + + + + | Deanna Lawson | ECON | Unknown | | + + + + + Care Team Providers + +------+ + | Care Cooling Room Attendant Name | Role | Phone | + [...] + + + | Authorized | | Radiology | Diagnoses | Darek, | Sam | | | | | Permanent | Abril, | Cardiology | | | | | atrial | [address] | [facility] | | | | | fibrillation | [address] | [address] | | | | | (HCC) | [address] | [place] | | | | | Presence of | [place] | | | | | cardiac | [address] | [address] | | | | | pacemaker | Phone: | Phone: | | | | | Chronic | | | | | | | diastolic | Fax: | Fax: | | | | | heart | [...] + + | 06/27/ | Office | [facility] | Tatoleena Charlee | 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) | | | | [address] | [place] | (Primary Dx); | | | | [address] | [place] [address] | Cardiac pacemaker in | | | | [place] | [phone] | situ; Chronic | | | | [address]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 | | | | [phone] | | failure (HCC); | | | [...] Instructions Patient Instructions Charlee Oswald FNP - 06/27/2019 11:00 AM PSTAsk the [facility] about [facility] your bronchitis Call The kidney doctors for appointment as you are due to for followup See me back in 4months, but sooner if needed Get echo done in September 1 2:08 PM PST documented in this encounter Progress Notes Charlee Oswald FNP - 06/27/2019 11:00 AM PSTFormatting of [...] reported by him as being negative His [id number]- VASC score is 6( HTN, age, stroke, [...] function until he followed up with nephrology ENEDINA Rajput on 04/05/2019, and told him to avoid dehydration and working outside in the sum radha heat. 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 Denies recreational or illicit drug use. Exercises with walki ng and yard work, tolerates without chest pain or dyspnea. 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 Also worked for a [employer] company and then a [employer], but now just enjoys his leisure ti [...] by mouth 2 (two) times daily. (Pa tient taking differently: Take 25 mg by mouth [...] or rhonchi noted, respirations unlab ored HEART: [facility] pacemaker site well Healed, stable to palpation. [...] : 02/04/2019: ( Dr. Thompson) : new [employer] Accolade MRI com patible model L310, serial #[id number] pacemaker. The current lead is a [employer] model 4136, serial #[id number].Mode for pacing, VVIR with dual-sensor technology programmed on. T he lower rate will be 60 and upper rate 120beats per minute. The output will be 2 volts at 0.4 milliseconds with sensitivity of 2.5 millivolts. Pacing and sensing will be bipolar Previous Implant Pacemaker/ICD: 07/30/2010, BS [employer] S601, SN: [id number]. [facility]. Last pacer interrogation: 05/07/2019: ( Dr. Thompson) : Normal device function was seen today f or this [employer] single-chamber device. The pacing threshold was [...] change, except less pul monary hypertension Echo:07/26/2017: [facility]: EF >70 percent. LV normal [...] reviewed by me LABS: Labs: 02/08: ( [place]) CBC: WBC 6.6, hemoglobin 12.5, and hematocrit [...] PHS 75,TOTAL BILI 0.6,ALB 3.9 Labs: 02/18/2018: ([facility] CBC: WBC 6.2, RBC 3.46, hemoglobin [...] 73. Thyroid: TSH 3.55 Labs: 08/23/2018: ( [facility]): CBC: WBC 6.6, RBC 2.92, [...] He had a recent clinic visit with tire duster Dr. Thompson, and pacemaker has stable d [...] . His echo will be performed at [facility] in September, and I will follow-up with [...] contain inadvertent rec ognition errors. Maximilian MCCONNELL [facility] Cardiology 06/28/2019 Apurva orozco in this encounter Plan of Treatment +--------+---------+ + + + | Date | Type | Specialty | Care Team | Description | +--------+---------+ + + + | 03/17/ | Office | Orthopedic Surgery | Melquiades Baez | | | 2019 | Visit | | [address] | | | | | | [address] | | | | | | [place] [address] | | | | | | [phone] | | | | | | | | +--------+---------+ + + + | 04/21/ | Office | Nephrology | Isiah Jade MD | | | 2019 | Visit | | [address] | | | | | | [address] [place] | | | | | | [address] | | | | | | | | +--------+---------+ + + + | 05/07/ | Office | Cardiology | Charlee Oswald | | | 2020 | Visit | | [address] | | | | | | [address] | | | | | | [place] [address] | | | | | | [phone] | | | | | | | | +--------+---------+ + + + + + +--------+ + [...] root | | | | | | (HCC) Moderate to | | | | | [...]
--- OUTSIDE RECORDS SUMMARY | ~2020-03-05 | XMS | Encounter Summary ---
Demographics + + + | Address | [address] | | | [place] [address] | + + + | Home Phone [...] + + | Author | [facility] | | | and [place] | + + + | Organization | [facility] | | | [...] [place] | | | | | [address] | | + + + + + | Deanna Lawson | ECON | Unknown | | + + + + + Care Team Providers + +------+ + | Care Electrician Sound Name | Role | Phone | + +------+ + | Barbara Gilman MD | PCP | | + +------+ + Encounter Details +--------+ + + + + | Date | Type | Department | Care Team | Description | +--------+ + + + + | 09/08/ | Orders Only | [facility] | Todd Iqbal Ajith | | | 2016 | | CARDIOLOGY [place] | [address] | | | | | [address] | [address] | | | | | [address] | [place] [address] | | | | | [place], [place] | [phone] | | | | | [address] | | | | | | [phone] | | | +--------+ + + + [...] | | | | | [address] [place], | | | | | | [place] [address] | | | | | | [phone] | | | | | | | | +--------+---------+ + + + | 04/21/ | Office | Nephrology | Isiah Jade MD | | | 2019 | Visit | | [address] | | | | | | [address] [place] | | | | | | [address] | | | | | | | | +--------+---------+ + + + | 05/07/ | Office | Cardiology | Charlee Oswald | | | 2019 | Visit | | [address] | | | | | | [address] | | | | | | [place] [address] | | | | | | [phone] | | | | | | | [...] Performed At | + + + | [facility] CARDIOLOGY Nuclear Lexiscan Stress Test History: | [...] + + | Kobe, Rad Conversion - 04/11/2019 9:03 PM [facility] C[facility] | | Nuclear Lexiscan [...]
--- OUTSIDE RECORDS SUMMARY | ~2020-03-05 | XMS | Encounter Summary ---
Demographics + + + | Address | [address] | | | [place] [address] | + + + | Home Phone | | + + + | Preferred Language | Unknown | + + + | Marital Status | | + + + | Yazidism Affiliation | 1001 | + + + | Race | Unknown | + + + | Ethnic Group | Unknown | + + + Author + + + | Author | [facility] | | | and [place] | + + + | Organization | [facility] | | | and [...] [place] | | | | | [address] | | + + + + + | Deanna Lawson | ECON | Unknown | | + + + + + Care Team Providers + +------+ + | Care Onsite Health Coach Name | Role | Phone | + [...] Provider Unknown | | | | | [place], [place] | | | | | | [address] | (Fax) | | | | | [phone] | | | +--------+ + + + [...] | | | | | | [facility] | | | | | | [place] [address] | | | | | | [phone] | | | | | | | | +--------+---------+ + + + | 04/21/ | Office | Nephrology | Isiah Jade MD | | 2019 | Visit | | [address] [facility] | | | | | | [address] [place] | | | | | | [address] | | | | | | | | +--------+---------+ + + + | 05/07/ | Office | Cardiology | Charlee Oswald | | | 2019 | Visit | | [address] | | | | | | [address] | | | | | | [place] [address] | | | | | | [phone] | | | | | | | [...]
--- OUTSIDE RECORDS SUMMARY | ~2020-03-05 | XMS | Encounter Summary ---
Demographics + + + | Address | [address] | | | [place] [address] | + + + | Home Phone | | + + + | Preferred Language | Unknown | + + + | Marital Status | | + + + | Rastafarian Affiliation | 1001 | + + + | Race | Unknown | + + + | Ethnic Group | Unknown | + + + Author + + + | Author | [facility] | | | and [place] | + + + | Organization | [facility] | | | [...] [place] | | | | | [address] | | + + + + + | Deanna Lawson | ECON | Unknown | | + + + + + Care Team Providers + +------+ + | Care It Integration Architect Name | Role | Phone | [...] + + | 11/27/ | Virtual | [facility] | Charlee Oswald | Cardiac pacemaker in | | 2020 | Office | CARDIOLOGY ALYX | [address] | situ (Primary Dx); | | | Visit | [address] | [place] | Permanent atrial | | | | [address] | [place] [address] | fibrillation (HCC); | | | | [place] | [phone] | Chronic diastolic | | | | [address] | | heart failure (HCC); | | | | [phone] | | Dilated aortic root | | [...] in this encounter Patient Instructions Patient Instructions Darek Abril, FNP - 11/28/2019 10:30 AM PDTI have ordered you fasting labs to be done at , but can drink water prior to having labs done I also ordered you an Echo and carotid ultra sound to be done at I made changes to medications See me back in documented in this encounter Progress Notes Darek Abril, FNP - 11/28/2019 10:30 AM PDTFormatting of [...] minutes of medical discussion via telephone visit (40438) Patient has not been seen in office [...] see below Assessment & Plan See below MARSHAL Sandoval 11/28/2019 HISTORY OF PRESENT ILLNESS: Mr. Andres [...] reported by him as being negative His TVA3NG5- VASC score is 6( HTN, age, stroke, [...] [facility] but had noted that [...] recreational or illicit drug use. Exercises with [email or web address] and yard work, tolerates without chest pain or dyspnea. 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 Also worked for a [employer] company and then a [employer], but now just enjoys his leisure ti [...] or rhonchi noted, respirations unlab ored HEART: [facility] pacemaker site well Healed, stable to [...] : 02/04/2019: ( Dr. Thompson) : new [employer] Accolade MRI com patible model L310, serial #[id number] pacemaker. The current lead is a [place] [employer] model 4136, serial #[id number].Mode for pacing, VVIR with dual-sensor technology programmed on. T he lower rate will be 60 and upper rate 120beats per minute. The output will be 2 volts at 0.4 milliseconds with sensitivity of 2.5 millivolts. Pacing and sensing will be bipolar Previous Implant Pacemaker/ICD: 07/30/2010, SYDNEE Altrajinder S601, SN: [id number]. [facility]. Last pacer interrogation: 11/11/2019: Battery longevity 9 years. Pacer dependent. RV paci n%. No atrial lead, unable to monitor burden of atrial fibrillation. No ventricular high rate episodes. Lead impedance and threshold values acceptable. CHF parameters and ethan nds reviewed and stable. pacer interrogation: 05/07/2019: ( Dr. Thompson) : Normal device function was seen today for th is [employer] single-chamber device. The pacing threshold was [...] 15 mmHg. Normal pulmonic valve with mild [place]. Sinus of Valsalva dilated about 4.26 cm, [...] change, except less pulmonar y hypertension Echo:07/26/2017: [facility]: EF >70 percent. LV normal in [...] PHS 75,TOTAL BILI 0.6,ALB 3.9 Labs: 02/18/2018: ([facility]). CBC: WBC 6.2, RBC 3.46, hemoglobin [...] 73. Thyroid: TSH 3.55 Labs: 08/23/2018: ( [facility] CBC: WBC 6.6, RBC 2.92, hemoglobin [...] atrial fi b with a very high KYD2EA3- VASC score of 6. For his cardiac [...] with Dr. 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 I also referred him for sleep apnea evaluation with Dr. Dorsey at the [facility] sleep disorders clinic due to his now severe pulmonary hypertension, he has not followed up on thi s due to pandemic restrictions. He also has an appointment with his just Dr. Jade on March 09. He states his local PCP is Rosa Elena Goodrich, but I am unable to get her contact mandy jaimes , so I will send copy of [...] for continuity of care purp nettie MCCONNELL [facility] 11/28/2019 Ubaldo gregory in this encounter Plan of Treatment +--------+---------+ + + + | Date | Type | Specialty | Care Team | Description | +--------+---------+ + + + | 03/17/ | Office | Orthopedic Surgery | Melquiades Baez | | 2019 | Visit | | [address] | | | | | | [facility], | | | | | | [place] [address] | | | | | | [phone] | | | | | | | | +--------+---------+ + + + | 04/21/ | Office | Nephrology | Isiah Jade MD | | 2019 | Visit | | [address] [facility] | | | | | | [address] [place] | | | | | | [address] | | | | | | | | +--------+---------+ + + + | 05/07/ | Office | Cardiology | Charlee Oswald | | | 2019 | Visit | | [address] | | | | | | [address] | | | | | | [place] [address] | | | | | | [phone] | | | | | | | [...]
--- OUTSIDE RECORDS SUMMARY | ~2020-03-05 | XMS | Encounter Summary ---
Demographics + + + | Address | [address] | | | [place] [address] | + + + | Home Phone [...] [place] | | | | | [address] | | + + + + + | Deanna Lawson | ECON | Unknown | | + + + + + Care Team Providers + +------+ + | Care Hangar Attendant Name | Role | Phone | + +------+ + | Barbara Gilman MD | PCP | | + +------+ + Encounter Details +--------+ + + + + | Date | Type | Department | Care Team | Description | +--------+ + + + + | 01/11/ | Orders Only | [facility] | Tristan Rajput, | | | 2018 | | NEPHROLOGY [place] | [address] | | | | | [address] [facility] | [place] | | | | | [place] | [place] | | | | | [address] | [address] | | | | | [phone] | [phone] | | | | | | | [...] | | | | | | [facility] | | | | | | [place] [address] | | | | | | [phone] | | | | | | | | +--------+---------+ + + + | 04/21/ | Office | Nephrology | Isiah Jade MD | | | 2019 | Visit | | [address] [facility] [address] | | | | | | [address] [place] | | | | | | [address] | | | | | | | | +--------+---------+ + + + | 05/07/ | Office | Cardiology | Charlee Oswald | | | 2019 | Visit | | [address] | | | | | | [address] | | | | | | [place] [address] | | | | | | [phone] | | | | | | | [...]
--- OUTSIDE RECORDS SUMMARY | ~2020-03-05 | XMS | Encounter Summary ---
Demographics + + + | Address | [address] | | | [place] [address] | + + + | Home Phone | | + + + | Preferred Language | Unknown | + + + | Marital Status | | + + + | Sikhism Affiliation | 1001 | + + + | Race | Unknown | + + + | Ethnic Group | Unknown | + + + Author + + + | Author | [facility] | | | and [place] | + + + | Organization | [facility] | | | [...] [place] | | | | | [address] | | + + + + + | Deanna Lawson | ECON | Unknown | | + + + + + Care Team Providers + +------+ + | Care Jump Iron Machine Presser Name | Role | Phone | + [...] | | | | | atrial | [address] | Evangeline Echo | | | | | fibrillation | [place] | [address] | | | | | (HCC) | [address] | [place] | | | | | Presence of | [place] | [place] | | | | | cardiac | [address] | [address] | | | | | pacemaker | [...] + + | 06/27/ | Office | [facility] | Tatoleena Charlee | 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) | | | | [address] | [place] | (Primary Dx); | | | | [address] | [place] [address] | Cardiac pacemaker in | | | | [place] | [phone] | situ; Chronic | | | | [address]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 | | | | [phone] | | failure (HCC); | | | [...] reported by him as being negative His YUR8QL5- VASC score is 6( HTN, age, stroke, [...] feel considerably improved since his generator worley [employer], as he had felt quite symptomatic when [...] [employer]. Also worked for a [employer] company and then a [employer], but now just enjoys his leisure ti [...] or rhonchi noted, respirations unlab ored HEART: [facility] pacemaker site well Healed, stable to palpation. [...] : 02/04/2019: ( Dr. Thompson) : new [employer] Accolade MRI com patible model L310, serial #[id number] pacemaker. The current lead is a [employer] model 4136, serial #[id number].Mode for pacing, VVIR with dual-sensor technology programmed on. T he lower rate will be 60 and upper rate 120beats per minute. The output will be 2 volts at 0.4 milliseconds with sensitivity of 2.5 millivolts. Pacing and sensing will be bipolar Previous Implant Pacemaker/ICD: 07/30/2010, BS [employer] S601, SN: [id number]. [facility]. Last pacer interrogation: 05/07/2019: ( Dr. Thompson) : Normal device function was seen today f or this [employer] single-chamber device. The pacing threshold was [...] change, except less pul monary hypertension Echo:07/26/2017: [facility]: EF >70 percent. LV normal in [...] reviewed by me LABS: Labs: 02/08: ( [place]) CBC: WBC 6.6, hemoglobin 12.5, and hematocrit [...] PHS 75,TOTAL BILI 0.6,ALB 3.9 Labs: 02/18/2018: ([facility]). CBC: WBC 6.2, RBC 3.46, [...] 73. Thyroid: TSH 3.55 Labs: 08/23/2018: ( [facility]): CBC: WBC 6.6, RBC 2.92, hemoglobin [...] He had a recent clinic visit with fire pot operator Dr. Thmopson, and pacemaker has stable d evice function, [...] . His echo will be performed at [facility] in September, and I will follow-up with [...] contain inadvertent rec ognition errors. Maximilian MCCONNELL [facility] 06/28/2019 Apurva orozco in this [...] | | | | | | [place] [address] | | | | | | [phone] | | | | | | | | +--------+---------+ + + + | 04/21/ | Office | Nephrology | Isiah Jade MD | | | 2019 | Visit | | [address] | | | | | | [address] [place] [address] | | | | | | [address] | | | | | | | | +--------+---------+ + + + | 05/07/ | Office | Cardiology | Charlee Oswald | | | 2020 | Visit | | [address] | | | | | | [address] | | | | | | [place] [address] | | | | | | [phone] | | | | | | | [...]
--- OUTSIDE RECORDS SUMMARY | ~2020-03-05 | XMS | Encounter Summary ---
Demographics + + + | Address | [address] | | | [place] [address] | + + + | Home Phone | | + + + | Preferred Language | Unknown | + + + | Marital Status | | + + + | Synagogue Affiliation | 1001 | + + + | Race | Unknown | + + + | Ethnic Group | Unknown | + + + Author + + + | Author | [facility] | | | and [place] | + + + | Organization | [facility] | | | and [...] [place] | | | | | [address] | | + + + + + | Deanna Lawson | ECON | Unknown | | + + + + + Care Team Providers + +------+ + | Care Sustainability Project Manager Name | Role | Phone | [...] Provider Unknown | | | | | [place], [place] | [phone] | | | | | [address] | | | | | | [phone] | | | +--------+ + + + [...] | | | | | | [facility], | | | | | | [place] [address] | | | | | | [phone] | | | | | | | | +--------+---------+ + + + | 04/21/ | Office | Nephrology | Isiah Jade MD | | 2019 | Visit | | [address] [facility] | | | | | | [address] [place] | | | | | | [address] | | | | | | | | +--------+---------+ + + + | 05/07/ | Office | Cardiology | Charlee Oswald | | | 2019 | Visit | | [address] | | | | | | [address] | | | | | | [place] [address] | | | | | | [phone] | | | | | | | [...]
--- OUTSIDE RECORDS SUMMARY | ~2020-03-05 | XMS | Encounter Summary ---
Demographics + + + | Address | [address] | | | [place] [address] | + + + | Home Phone | | + + + | Preferred Language | Unknown | + + + | Marital Status | | + + + | Druze Affiliation | 1001 | + + + | Race | Unknown | + + + | Ethnic Group | Unknown | + + + Author + + + | Author | [facility] | | | and [place] | + + + | Organization | [facility] | | [...] [place] | | | | | [address] | | + + + + + | Deanna Lawson | ECON | Unknown | | + + + + + Care Team Providers + +------+ + | Care Front End Architect Name | Role | Phone | + +------+ + | Barbara Gilman MD | PCP | | + +------+ + Encounter Details +--------+ + + + + | Date | Type | Department | Care Team | Description | +--------+ + + + + | 06/25/ | Orders Only | [facility] | Charlee Oswald | | | 2018 | | CARDIOLOGY ALYX | [address] | | | | | [address] | [address] | | | | | [address] | [place] [address] | | | | | [place] | [phone] | | | | | [address] | | | | | | [phone] | | | +--------+ + + + [...] | | | | | [address] [place] | | | | | | [place] [address] | | | | | | [phone] | | | | | | | | +--------+---------+ + + + | 04/21/ | Office | Nephrology | Isiah Jade MD | | | 2019 | Visit | | [address] [facility] | | | | | | [address] [place] | | | | | | [address] | | | | | | | | +--------+---------+ + + + | 05/07/ | Office | Cardiology | Charlee Oswald | | | 2019 | Visit | | [address] | | | | | | [address] | | | | | | [place] [address] | | | | | | [phone] | | | | | | | [...]
--- OUTSIDE RECORDS SUMMARY | ~2020-03-05 | XMS | Encounter Summary ---
Demographics + + + | Address | [address] | | | [place] [address] | + + + | Home Phone | | + + + | Preferred Language | Unknown | + + + | Marital Status | | + + + | Religion Affiliation | 1001 | + + + | Race | Unknown | + + + | Ethnic Group | Unknown | + + + Author + + + | Author | [facility] | | | and [place] | + + + | Organization | [facility] | | | [...] [place] | | | | | [address] | | + + + + + | Deanna Lawson | ECON | Unknown | | + + + + + Care Team Providers + +------+ + | Care Jewel Inspector Name | Role | Phone | + +------+ + | Barbara Gilman MD | PCP | | + +------+ + Encounter Details +--------+---------+ + + + | Date | Type | Department | Care Team | Description | +--------+---------+ + + + | 05/07/ | Office | [facility] | Enoch Thompson, | Cardiac pacemaker in | | 2019 | Visit | CARDIOLOGY [place] | [address] | situ; Permanent | | | | [address] | [address], | atrial fibrillation | | | | [place], [place] | [place] [address] | ([facility]) | | | | [address] | [phone] | | | | | [phone] | | | +--------+---------+ + + + [...] pacemaker in situ Overview He has a [employer] Altrua single-chamber RV pacemaker that was [...] function was seen tofrancesca marcus for this [employer] single-chamber device. The pacing threshold was [...] mild concentric LVH. He has a single-chamber [employer] ventricular pacemaker that is nearing elective [...] mild concentric LVH. He has a single-chamber [employer] ventricular pacemaker that is nearing elective replacement indicator status. He has been pacing the right ventricle 99% o f the time. Anticoagulated with apixaban. He has only been taking 2.5 mg twice per day, because of cierra al dysfunction and age. The chads 2 vascular score is 4. 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 Priority: High Note Last Updated: 05/07/2019 He has a [employer] Altrua single-chamber RV pacemaker that was [...] function was seen tofrancesca marcus for this [employer] single-chamber device. The pacing threshold was 0.6 [...] 2 diabetes mellitus without complication ([facility]) 06/04/2015 Reading: Continue current therapy. I [...] notes on file Myrtle Esteves Me dical National Sales Trainer - 05/07/2019 11:30 AM Sheela COOPER Note- [...] ented in this encounter Plan of Treatment +--------+---------+ + + + | Date | Type | Specialty | Care Team | Description | +--------+---------+ + + + | 03/17/ | Office | Orthopedic Surgery | Melquiades Baez | | | 2019 | Visit | | [address] | | | | | | [place], | | | | | | [place] [address] | | | | | | [phone] | | | | | | | | +--------+---------+ + + + | 04/21/ | Office | Nephrology | Isiah Jade MD | | | 2019 | Visit | | [address] | | | | | | [address] | | | | | | [address] | | | | | | | | +--------+---------+ + + + | 05/07/ | Office | Cardiology | Charlee Oswald | | | 2019 | Visit | | [address] | | | | | | [address] | | | | | | [place] [address] | | | | | | [phone] | | | | | | | | +--------+---------+ + + + documented as of this encounter Visit Diagnoses + + | Diagnosis | + + | Cardiac pacemaker in situ | + + | Permanent atrial fibrillation (HCC) Atrial fibrillation | + + documented in this encounter
--- OUTSIDE RECORDS SUMMARY | ~2020-03-05 | XMS | Encounter Summary ---
Demographics + + + | Address | [address] | | | [place] [address] | + + + | Home Phone | | + + + | Preferred Language | Unknown | + + + | Marital Status | | + + + | Anabaptism Affiliation | [id number] | + + + | Race | Unknown | + + + | Ethnic Group | Unknown | + + + Author + + + | Author | [facility] | | | and [place] | + + + | Organization | [facility] | | | [...] [place] | | | | | [address] | | + + + + + | Deanna Lawson | ECON | Unknown | | + + + + + Care Team Providers + +------+ + | Care Chief Radiologic Technologist Name | Role | Phone | + [...] + + | 12/28/ | Surgery | [facility] | Lamont Hernandez MD | EGD | | 2020 | | [facility] | [address] | | | | | INTRA [address] | [place] | | | | | [address] [place] | [address] | | | | | [address] | [phone] | | | | | [phone] | | | +--------+---------+ + + + [...] + + + | Blood Pressure | 133/71 | 12/29/2019 7:13 AM | | | | | PDT | | + + + + + | Pulse | 62 | 12/29/2019 7:13 AM | | | | | PDT | | + + + + + | Temperature | 36.6 C (97.8 F) | 12/29/2019 7:13 AM | | | | | PDT | | + + + + + | Respiratory Rate | 16 | 12/29/2019 7:13 AM | | | | | PDT | | + + + + + | Oxygen Saturation | 96% | 12/29/2019 7:13 AM | | | | | PDT [...] was on board. No immediate indication for FIELD REPRESENTATIVES DIRECTOR. Patient was also seen by physical therapy and occupational therapy and was recommended for discharging to [facility]. However patient will b e going to [facility] at this time. Patient also had [...] No CVA tenderness, no spinal tenderness Disposition: [facility] Condition: Fair No discharge procedures [...] BUNCREARATIO 30 01/01/2020 PTH 72.57 (A) 04/01/2019 [id number] 25.2 (L) 12/27/2019 CALCIUM 8.6 01/01/2020 PHOS [...] been following up with ENEDINA mena in [place]. He has unrecovered acute kidney injury and a higher baseline creatinine. At this time there is no clinical uremia, refractory volume overload, refractory acidosis, refractory hyperkalemia and no urgent indication of starting FIELD REPRESENTATIVES DIRECTOR. Neither is there an indication for diagnostic [...] Incentive spirometry. Transfuse Prn. No indication for FIELD REPRESENTATIVES DIRECTOR for now. Await renal recovery. On discharge [...] was completed later after rounds. Dictation software, Openbucks, was used which may contain error for [...] but not limited to potential need for FIELD REPRESENTATIVES DIRECTOR . This is a patient with multiple [...] is waiting downstairs. Deanna Doe RN, CMSRN, [facility] Inpatient Wound Ostomy Care [phone] 01/01/2020 11:46 AM Chai, Savana Irving RN [...] BUNCREARATIO 25 12/31/2019 PTH 72.57 (A) 04/01/2019 [id number] 25.2 (L) 12/27/2019 CALCIUM 8.5 12/31/2019 PHOS [...] been following up with ENEDINA mena in [place]. He has unrecovered acute kidney injury and a higher baseline creatinine. At this time there is no clinical uremia, refractory volume overload, refractory acidosis, refractory hyperkalemia and no urgent indication of starting FIELD REPRESENTATIVES DIRECTOR. Neither is there an indication for diagnostic [...] Incentive spirometry. Transfuse Prn. No indication for FIELD REPRESENTATIVES DIRECTOR for now. Await renal recovery. I discussed [...] was completed later after rounds. Dictation software, Openbucks, was used which may contain error for [...] but not limited to potential need for FIELD REPRESENTATIVES DIRECTOR . This is a patient with multiple [...] injuries: see wound RN note for treatment. [facility] ed, continue wound care at swing bed, send with extra dressing supplies. *Metabolic bone disorder: elevated PTH and phosphorus. Treatment per manager of case (see thei r note). Subjective No chest [...] pt. PURVI Goodrich RN CWON 12/30/19 14:53 ayfnmi, Jerry Malik MD - 12/30/2019 1:46 PM PDT Service: Hospitalist Daily Progress Note Andres Guzmán 89 y.o. : 1930 SEX: male PCP: Barbara Gilman MD Hospital Day: LOS: 9 SUBJECTIVE Patient Summary: Patient is an 89-year-old male with past medical history of HTN, DM Type 2, CKD Stage III w ith baseline creatinine 1.7 who was admitted as a transfer from [facility] due t o a mechanical fall [...] finding placement and he was accepted by [facility] in [place], [place] for rehabilitation purposes. Hospital stay was [...] Medications Current Facilty-Administered PRN Medications Ordered in [facility] Medication Dose Route Frequency Provider Last [...] but remains week, he is accepted at [facility] in [place] with discharge plans tomorrow for rehabilit ation if remains stable. Will continue PT/OT, wound care services and monitor progress. Acute Kidney Injury on Chronic Kidney Disease Stage 3: This was likely due to ATN precipit ated by dehydration & blood loss, Clinically stable and creatinine is down to 3.0 range, [facility] hrology service on board and Dr. Beckford [...] discharge plans to [facility] in [facility] tomorrow. DVT prophylaxis with SCD's only due to risks of bleeding. Discharge plans tomorrow to [facility] in [place], [place] for rehabi litation. Called his daughter Ms. Huerta and left a message with updated information at phone number [phone]. Jerry Chino MD 12/30/2019 turgill, DALILA Keys - 12/30/2019 12:35 PM PDTFormatting of this note might be different from the [facility] Service: Gastroenterology Consult Progress Note Hospital Day: LOS: 9 days SUBJECTIVE Patient Summary: This is an 89-year-old male with multiple medical problems and a his tory of hypertension, diabetes, CKD stage III who was transferred from [facility] t o a fall [...] Infusions dextrose 10% pantoprazole 8 mg/hr (12/30/19 0953) PRN Medications acetaminophen OR acetaminophen OR acetaminophen, [...] motor deficits. PSYCHIATRIC: Appropriate, affect appears normal [facility] Gastroenterology Patient Name: Andres Guzmán Procedure [...] physician, the nurse, the anesthesiologist and the endoscopy technician in the pre-procedure area in the [...] successful. Thermal coagulation with Gold probe 7 Omani x 5 pulses was successful with hemostasis. [...] 12/29/2019 8:36 AM Number of Addenda: 0 [facility] DATA Lab Results Component Value Date [...] ll with any questions. Florina Cantu PA-C [facility] Gastroenterology 12/30/2019 Associated attestation - Lamont Hernandez MD - 12/31/2019 2:17 PM [id number] male with GI bleeding due to duodenal ulcer with visible vessel. The ulcer and visible vessel were tr eated with injection and gold probe thermal coagulation. The patient was seen and examined by me personally. The case was discussed with the physician's historian research assistant and I agree with the assessment and p tim as outlined in the note. Continue PPI IV infusion for total of 72 hours and then when patient is discharged he must be on twice daily PPI for 8 weeks. Resume Eliquis in 1 week. Lamont Hernandez MD Gastroenterology staffRidgwayMarycarmen, [facility] - 12/30/2019 11:05 AM PDTFormatting of th [...] status. Disposition: Plan to discharge tomorrow, to Shelter Facility, once medically stable and cleared by [...] BUNCREARATIO 23 12/30/2019 PTH 72.57 (A) 04/01/2019 [id number] 25.2 (L) 12/27/2019 CALCIUM 8.6 12/30/2019 PHOS [...] been following up with ENEDINA mena in [place]. That had improved with nonoliguric state but now seems to have leveled off at around 3 and this may be reflection of unrecovered acute kidney injury and a higher baseline creatinine. At this time there is no clinical uremia, refractory volume overload, refractory acidosis, refractory hyperkalemia and no urgent indication of starting FIELD REPRESENTATIVES DIRECTOR. Neither is there an indication for diagnostic [...] Incentive spirometry. Transfuse Prn. No indication for FIELD REPRESENTATIVES DIRECTOR for now. Await renal recovery. I discussed [...] was completed later after rounds. Dictation software, Openbucks, was used which may contain error for [...] but not limited to potential need for FIELD REPRESENTATIVES DIRECTOR . This is a patient with multiple [...] BUNCREARATIO 30 12/29/2019 PTH 72.57 (A) 04/01/2019 [id number] 25.2 (L) 12/27/2019 CALCIUM 8.7 12/29/2019 PHOS [...] been following up with ENEDINA mena in [place]. That seems to be improving with nonoliguric state and small reduction in creatinine. At this time there is no clinical uremia, refractory volume overload, refractory acidosis, refractory hyperkalemia and no urgent indication of starting FIELD REPRESENTATIVES DIRECTOR. Neither is there an indication for diagnostic [...] Incentive spirometry. Transfuse Prn. No indication for FIELD REPRESENTATIVES DIRECTOR for now. Await renal recovery. I discussed [...] was completed later after rounds. Dictation software, Openbucks, was used which may contain error for [...] but not limited to potential need for FIELD REPRESENTATIVES DIRECTOR . acetaminophen 1,000 mg Oral 3 times [...] who was admitted as a transfer from [facility] due t o a mechanical fall [...] finding placement and he was accepted by [facility] in [place], [place] for rehabilitation purposes. Hospita l stay [...] by [facility] in [place], [place] with discharge plans early next weeks [...] another 1 to 2 to SNF in [place], [place] if remains stable and improve d. Called his daughter Ms. Huerta and updated her about plans at phone number [phone]. Jerry Chino MD 12/29/2019 Norma Sarabia RN [...] BUNCREARATIO 28 12/28/2019 PTH 72.57 (A) 04/01/2019 [id number] 25.2 (L) 12/27/2019 CALCIUM 8.5 12/28/2019 PHOS [...] been following up with ENEDINA mena in [place]. That seems to be improving with nonoliguric state and small reduction in creatinine. At this time there is no clinical uremia, refractory volume overload, refractory acidosis, refractory hyperkalemia and no urgent indication of starting FIELD REPRESENTATIVES DIRECTOR. Neither is there an indication for diagnostic [...] Incentive spirometry. Transfuse Prn. No indication for FIELD REPRESENTATIVES DIRECTOR for now. Await renal recovery. I discussed [...] was completed later after rounds. Dictation software, Openbucks, was used which may contain error for [...] but not limited to potential need for FIELD REPRESENTATIVES DIRECTOR . acetaminophen 1,000 mg Oral 3 times [...] DALILA Grant - 12/28/2019 10:49 AM PDT [facility] Service: Orthopedic Surgery Progress Note Hospital [...] DALILA Peralta has created this entry using VisualXcript Recognition Kashless e and EdRover macros. The entry has been reviewed and [...] who was admitted as a transfer from [facility] due t o a mechanical fall [...] finding placement and he was accepted by [facility] in [place], [place] for rehabilitation purposes. Hospita l stay [...] Medications Current Facilty-Administered PRN Medications Ordered in [facility] Medication Dose Route Frequency Provider Last Rate Last Dose aluminum & magnesium hydroxide-simethicone (MAALOX PLUS REGULAR STRENGTH) 200-200-20 mg /5 mL suspension 30 mL 30 mL Oral Q4H PRN Jerry Nathen Chino MD dextrose 50% injection 12.5-25 g 12.5-25 g Intravenous PRN Anders Soto PA-C 25 g at 05/03/20 0843 And dextrose 10% (D10W) infusion Intravenous [...] making slow progress, he is accepted by [facility] in [place], [place] with discharge plans possib ly early next weeks if remains stable. Will continue PT/OT, wound care and monitor progress . Acute Kidney Injury on Chronic Kidney Disease Stage 3: Likely due to ATN precipitated by d jasonydration and blood loss, creatinine is down to [...] 1 to 2 to a SNF in [place], [place] when renal functions are st able and cleared by Nephrology services. Also called his daughter Ms. Huerta and updated her a bout plans at phone number [phone]. Jerry Chino MD 12/28/2019 hazal Robbins COTA [...] been following up with [facility]INA mena in [place]. That seems to be improving with nonoliguric state and small reduction in creatinine. At this time there is no clinical uremia, refractory volume overload, refractory acidosis, refractory hyperkalemia and no urgent indication of starting FIELD REPRESENTATIVES DIRECTOR. Neither is there an indication for diagnostic [...] Incentive spirometry. Transfuse Prn. No indication for FIELD REPRESENTATIVES DIRECTOR for now. Await renal recovery. I discussed [...] was completed later after rounds. Dictation software, Openbucks, was used which may contain error for [...] but not limited to potential need for FIELD REPRESENTATIVES DIRECTOR . acetaminophen 1,000 mg Oral 3 times [...] status. Disposition: Plan to discharge Monday, to Shelter Facility, once medically stable a nd cleared [...] Net -400 ml . Treatment plan: per manager of case; slowly improving. *Blood pressure: labile; See VS [...] disorder: elevated PTH and phosphorus. Treatment per manager of case (see thei r note). Subjective No chest [...] Service: Hospitalist Daily Progress Note Andres Jones Elvinrishidemetrioprem 89 y.o. : 1930 SEX: male PCP: Barbara Gilman MD Hospital Day: LOS: 6 SUBJECTIVE Patient Summary: Patient is an 89-year-old male with past medical history of HTN, DM Type 2, CKD Stage III w ith baseline creatinine 1.7 who was admitted as a transfer from [facility] due t o a mechanical fall [...] Medications Current Facilty-Administered PRN Medications Ordered in [facility] Medication Dose Route Frequency Provider Last [...] trength and mobility. He is accepted by [facility] in [place], [place] and discharge is delayed due to [...] to 3 days to a SNF in [place], [place] when renal functions a re stable and cleared by Nephrology services. Jerry Chino MD 12/27/2019 Linda Montalvo RN - 12/26/2019 5:09 PM PDT [facility] Service: Wound Care Consult Note Hospital [...] This case has been discussed with Dr. [place], RN and CM. Electronically signed by: ENEDINA [...] who was admitted as a transfer from [facility] due t o a mechanical fall [...] Medications Current Facilty-Administered PRN Medications Ordered in [facility] Medication Dose Route Frequency Provider Last [...] Slow to recover OBJECTIVE Vital Signs: Vitals: 05/07/20 0726 BP: 124/56 Pulse: 63 Resp: 16 [...] placement is recommended. 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 Huerta and the at phone number [phone] Code Status: Full Code Regino Greene MD [...] status. Disposition: Plan to discharge Monday, to Shelter Facility, once medically stable a nd cleared [...] lab follow-up and treatment per hospitalist and manager of case. *Blood pressure: hypotensive; See VS for BP trending. 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 Current Weight: 63.5 kg (140 lb) [...] Dr. Huerta and the at phone number [phone] Code Status: Full Code Regino Greene MD [...] any conversation with family members today. Inpatient rehab care assistant. Code Status: Full Code Regino Greene MD [...] sodium chloride 0.9% 100 mL/hr at 12/22/19 4718 OBJECTIVE Vital Signs: Vitals with Comments 12/22/2019 [...] Wilson RN at 12/22/2019 5:35 PM PDTBernalKetan V PT - 12/22/2019 1:14 PM PDTFormatting [...] GAMMA NAIL; Surgeon: Melquiades Baez DO; [place]: [facility] MAIN OR OTHER SURGICAL HISTORY CATARACT EXTRACTION [...] Electronically Signed by: Lamont Hernandez MD 12/29/2019 [facility] Portions of this chart may have been created with Openbucks voice recognition software. Occasi onal wrong-word or sound-alike substitutions may have occurred due to the inherent castañeda itations of voice recognition software. Please read the chart carefully and recognize, using context, where these substitutions have occurred Julián Urbina MD - 12/21/2019 7:38 PM PDTFormatting of this note m ight be different from the original. [facility] Service: Hospitalist History and Physical Date of Admission: Dec 21 2019 [facility] Reason for Admission: Right comminuted intertrochanteric fracture of the hip CHIEF COMPLAINT: Mechanical fall tripped over side curb landed on the right hip area right hip pain today HISTORY OF PRESENT ILLNESS The patient is a 89 y.o. male Transfer from [facility] after fall with right hip fracture with multiple comor bidities being on Eliquis as well requested for higher level of care to transfer to [facility] wit h orthopedic 89 years old gentleman fall at this morning mechanical fall tripped on the curb and result ed in right hip pain [facility] visited x-ray found to have a [...] and LFT Orthopedic on-call was consulted from [facility] and requested to transfer for higher level of care At [facility] with multiple comorbidities REVIEW OF SYSTEMS 12 [...] transfer lab WBC 5.9 hb10.2 hct 30.5 jev421 potassium 5.1 Bun 85 cre 2.6 Co2-24 [...] as per stated reason Chronic A. fib [id number] VASC score is 6- Hold Eliquis for [...] Old records reviewed on EMR. Dictation software, Openbucks, used which may contain error for similar sounding words even af ter review. Personal communication requested for any clarification. Disposition: inpatient Code Status: FULL CODE Primary Care Physician: MD Julián Nobles MD 12/21/2019 documented in thi s encounter Consult Notes Lamont Hernadnez MD - 12/29/2019 10:26 AM PDT Gastroenterology Consultation: [facility] 12/29/2019 Andres Jones Ramirez 89 y.o. [id number] History of present illness: Gastroenterology consultation is requested for evaluation of GI bleeding with melena. This is an 89-year-old male with multiple medical problems and a history of hypertension, d iabetes, CKD stage III who was transferred from [facility] due to a fall and he sustain [...] GAMMA NAIL; Surgeon: Melquiades Baez DO; Location: [facility]IN OR OTHER SURGICAL HISTORY CATARACT EXTRACTION [...] file Gets together: Not on file Attends temple service: Not on file Active member of [...] this chart may have been created with Openbucks voice recognition software. Occasi onal wrong-word or sound-alike substitutions may have occurred due to the inherent castañeda itations of voice recognition software. Please read the chart carefully and recognize, using context, where these substitutions have occurred Hayley Peres MD - 12/25/2019 8:46 PM PDT Consulted by [facility] Problem List: Patient Active Problem List Diagnosis [...] III with baseline creatinine 1.7 admitted to [facility] on December 20 after a mechanical fall that led to right hip fracture. The patient was transferr ed from [facility] for surgery. The patient did have ORIF [...] Tristan Gage at the nephrology clinic in [place]. The patien t is poor historian and does not recall seeing a manager of case in the past. He also not awar [...] Order(s): IP CONSULT TO WOUND OSTOMY NURSE [facility] Service: Wound Care Consult Note Hospital [...] Elizabeth MD - 12/24/2019 11:33 AM PDT [facility] Service: Physicial Medicine & Rehab Consultation [...] curb and resulted in right hip pain [facility] visited x-ray found to have a right [...] diabetes, and cirrhosis He was transferred to [facility], and is now s/p ORIF with Dr. [...] BETSY FEMUR - GAMMA NAIL; Surgeon: Melquiades Baez, ; Location: [facility] OR OTHER SURGICAL HISTORY CATARACT EXTRACTION [...] should consist SNF placement closer to home ([place]). Code Status: Full Code Wing Marie Reed MD 12/24/2019 Melquiades Gill, - 12/22/2019 7:50 AM PDTAssociated Order(s): PROVIDER TO PROVIDER CONSULT [facility] Service: Orthopedic [...] hip f racture. He was transferred to [facility] for concerns with other comor bidities. [...] surgery. He will be taken for a [facility] hip cephalo-medullary nail.The risks and benefits of [...] might b e different from the original. JAIL FACILITY TRANSFER ORDERS Patient Name: Andres Guzmán [...] limb(s)): [x] OT Evaluation & Treat [] BEHAVIORAL MODIFICATION ASSISTANT Evaluation Treat Wound/Skin Care: [] Follow current recommendations of the wound team for treatment. [] Wound Vac management per nursing protocol. Labs/Imaging: [] PT/INR: Frequency per SNF provider Goal INR: [] Fingerstick glucose check before meals and bedtime and PRN [] Labs: Follow up: Melquiades Baez DO [address] [facility] [id number] In 2 weeks For post op care Barbara Gilman MD [address] Ledy Villafana MD [id number] In 1 week I have advised this [...] Regino Greene MD, certify that post hospital half-way care is medically necessa ry on a continuing basis for any of the conditions for which he/she received care during thi s hospitalization. Additional Orders/Instructions: Physician's signature: 01/01/2020 10:59 AM [facility] NURSING FACILITY USE ONLY: [] Admitting orders [...] HIGH Current Discharge Plan Anticipated Discharge Disposition: half-way facility Expected DC Date: 12/31/2019 Barriers to Discharge: placement Steps Taken Toward Discharge: Attended morning rounds, called [facility] and provided upd ate of Pt Next Steps: d/c to [facility] Community Support Services Current Outpt/Agency/Support Groups: none Community Agency Name: none Other Resources: Discharge Transportation Transportation Needs: agency transportation Notes: Pt on course to discharge to [facility] tomorrow. Idalia ma with [facility] team and they are accepting Pt tomorrow if Pt is medically ready. Cm will follow for d/c needs that arise. Electronically signed: Ja Marcus RN 12/31/2019 3:54 PM lan of Andrez Perry PTA - 12/31/2019 2:04 PM PDT Physical Therapy Treatment Note Recommended discharge disposition: half-way facility Post discharge physical therapy recommendation: Equipment [...] LTG Status continued at 12/30/2019 0805 LTG [place] Level supervised at 12/30/2019 0805 LTG Assistive Device none at 12/30/2019 0805 All Transfers Goal Most Recent Value LTG Status new at 12/30/2019804 LTG [place] Level minimum assist (75% patient effort) at 12/30/2019804 LTG Assistive Device 2 wheeled walker (FWW) at 12/30/2019804 Gait Goal Most Recent Value LTG Status new at 12/30/2019804 LTG [place] Level minimum assist (75% patient effort) at 12/30/2019804 LTG Assistive Device 2 wheeled walker (FWW) at 12/30/2019 08 LTG Distance (feet) 50ft at 12/30/2019 08 PT Time Calculation Individual Start Time: 1307 Individual Stop Time: 1320 Individual Total Time: 13 PT Total Treatment Time: 13 lan of [facility] - Liz Cabral RN - 12/31/2019 8:00 [...] concerns. Aware of plan for discharge to [facility] tomorrow and has no concerns regarding disc [...] Physical Therapy Treatment Note Recommended discharge disposition: half-way facility Post discharge physical therapy recommendation: Equipment [...] Bed Mobility Sit to Supine, Level of [place]: moderate assist (50% patient effort) Safety Issues: decreased use of legs for bridging/pushing Impairments: strength decreased Transfers Chair-Bed, Level of [place]: moderate assist (50% patient effort) Xzd-Shymr-Fes, Assistive Device: gait belt Sit-Stand, Level of [place]: moderate assist (50% patient effort) Stand-Sit, Level of [place]: moderate assist (50% patient effort) Yjy-Minjz-Ctz, Assistive Device: gait belt Safety Issues: balance decreased during turns, step length decreased Impairments: strength decreased Goals Reflects last filed data and may be from multiple contributors. All Bed Mobility Goal Most Recent Value LTG Status continued at 12/30/2019 0805 LTG [place] Level supervised at 12/30/2019 0805 LTG Assistive Device none at 12/30/2019 0805 All Transfers Goal Most Recent Value LTG Status new at 12/30/2019 0805 LTG [place] Level minimum assist (75% patient effort) at 12/30/2019 0805 LTG Assistive Device 2 wheeled walker (FWW) at 12/30/2019 0805 Gait Goal Most Recent Value LTG Status new at 12/30/2019 0805 LTG [place] Level minimum assist (75% patient effort) at [...] Bed in low position, gait belt available, sample steamer socks on. Problem: Skin Injury Risk Increased [...] Physical Therapy Re-Assessment Note Recommended discharge disposition: half-way facility Post discharge physical therapy recommendation: ongoing low intensity therapy, will benefi t from structured setting Equipment Recommendations: (TBD) Barriers to community-based discharge Physical Impairment, Pain, and Fall risk Planned Interventions: balance training, bed mobility training, gait training, home exercis e program, manual therapy techniques, patient/family education, ROM (Range of Motion), stair training, strengthening, stretching, malagasy ball techniques, wheelchair management/propulsio n training Recommended [...] Documentation: sit to/from stand Sit-Stand, Level of [place]: moderate assist (50% patient effort) Stand-Sit, Level of [place]: moderate assist (50% patient effort) Lmh-Zojvz-Nts, Assistive Device: other (see comments)(platform walker ) Maintain Weight Bearing Status: able to maintain weight bearing status Safety Issues: balance decreased during turns Impairments: pain, strength decreased, impaired balance Gait Gait Comments: ambulated with shuffled steps and decreased quita Level of [place]: moderate assist (50% patient effort) Assistive Device: [...] LTG Status continued at 12/30/2019 08 LTG [place] Level supervised at 12/30/2019 08 LTG Assistive Device none at 12/30/2019 0805 All Transfers Goal Most Recent Value LTG Status new at 12/30/2019 08 LTG [place] Level minimum assist (75% patient effort) at 12/30/2019 08 LTG Assistive Device 2 wheeled walker (FWW) at 12/30/2019 0805 Gait Goal Most Recent Value LTG Status new at 12/30/2019804 LTG [place] Level minimum assist (75% patient effort) at [...] RN at 05/2020 6:[facility] - 12/29/2019 1:37 [...] Physical Therapy Treatment Note Recommended discharge disposition: half-way facility Post discharge physical therapy recommendation: Equipment [...] Bed Mobility Supine to Sit, Level of [place]: moderate assist (50% patient effort) Sit to Supine, Level of [place]: moderate assist (50% patient effort) Safety Issues: decreased use of legs for bridging/pushing Impairments: strength decreased Transfers Sit-Stand, Level of [place]: moderate assist (50% patient effort) Stand-Sit, Level of [place]: moderate assist (50% patient effort) Mnp-Frqkc-Smq, Assistive Device: other (see comments)(UP walker) Safety Issues: balance decreased during turns, step length decreased Impairments: strength decreased Gait Level of [place]: moderate assist (50% patient effort) Assistive Device: [...] LTG Status new at 12/23/2019 1600 LTG [place] Level supervised at 12/23/2019 1600 LTG Assistive Device none at 12/23/2019 1600 All Transfers Goal Most Recent Value LTG Status new at 12/23/2019 1600 LTG [place] Level modified independent at 12/23/2019 1600 LTG Assistive Device 2 wheeled walker (FWW) at 12/23/2019 1600 Gait Goal Most Recent Value LTG Status new at 12/23/2019 1600 LTG [place] Level stand by assist at 12/23/2019 1600 [...] upon request. 12 :36 PM PDTPlan of Care - Andrez Llamas PTA - 12/27/2019 12:05 [...] Bed Mobility Supine to Sit, Level of [place]: moderate assist (50% patient effort) Safety Issues: decreased use of legs for bridging/pushing Impairments: strength decreased Transfers Sit-Stand, Level of [place]: moderate assist (50% patient effort) Stand-Sit, Level of [place]: moderate assist (50% patient effort) Dke-Pvqqu-Ujs, Assistive Device: other (see comments)(UP walker) Safety Issues: balance decreased during turns, step length decreased Impairments: strength decreased Exercises Bed exercises: ankle pumps, quad sets, heel slides, hip abduction/adduction, glut sets Goals Reflects last filed data and may be from multiple contributors. All Bed Mobility Goal Most Recent Value LTG Status new at 12/23/2019 1600 LTG [place] Level supervised at 12/23/2019 1600 LTG Assistive Device none at 12/23/2019 1600 All Transfers Goal Most Recent Value LTG Status new at 12/23/2019 1600 LTG [place] Level modified independent at 12/23/2019 1600 LTG Assistive Device 2 wheeled walker (FWW) at 12/23/2019 1600 Gait Goal Most Recent Value LTG Status new at 12/23/2019 1600 LTG [place] Level stand by assist at 12/23/2019 1600 [...] handled ghada e horn, long handled sponge, line inspector, sock aide Barriers to community-based discharge: Level of assistance for ADLs/Mobility and Fall risk Recommended Frequency: 3 times/wk for 10 days with reassessment due by 01/03/20 Summary: pt supine in bed upon PAPER CONTROL CLERK arrival. Agreeable to participate in OT session [...] x1, rest break inbetween set d/t fatigue. SAXMAN for proper tech during ex able to continue seq uence intitially however would require cueing/assist later on in reps. Goals Reflects last filed data and may be from multiple contributors. LB Dressing Goal Most Recent Value LTG Status new at 12/24/2019 0953 LTG [place] Level moderate assist (50% patient effort), verbal cues required at 12/23 0953 LTG Adaptive Equipment line inspector, shoe horn, long handled, sock-aid [AE as needed] at 2019 0953 Toilet Transfer Goal Most Recent Value LTG Status new at 12/24/2019 0953 LTG [place] Level minimum assist (75% patient effort), verbal [...] Bed Mobility Supine to Sit, Level of [place]: moderate assist (50% patient effort) Sit to Supine, Level of [place]: moderate assist (50% patient effort) Safety Issues: decreased use of legs for bridging/pushing Impairments: strength decreased Transfers Sit-Stand, Level of [place]: moderate assist (50% patient effort) Stand-Sit, Level of [place]: moderate assist (50% patient effort) Qzs-Hazrf-Vfo, Assistive Device: other (see comments)(Up walker) Safety Issues: balance decreased during turns, step length decreased Impairments: strength decreased Gait Level of [place]: moderate assist (50% patient effort) Assistive Device: [...] LTG Status new at 12/23/2019 1600 LTG [place] Level supervised at 12/23/2019 1600 LTG Assistive Device none at 12/23/2019 1600 All Transfers Goal Most Recent Value LTG Status new at 12/23/2019 1600 LTG [place] Level modified independent at 12/23/2019 1600 LTG Assistive Device 2 wheeled walker (FWW) at 12/23/2019 1600 Gait Goal Most Recent Value LTG Status new at 12/23/2019 1600 LTG [place] Level stand by assist at 12/23/2019 1600 [...] Bed Mobility Supine to Sit, Level of [place]: moderate assist (50% patient effort) Safety Issues: decreased use of legs for bridging/pushing Impairments: strength decreased Transfers Sit-Stand, Level of [place]: moderate assist (50% patient effort) Stand-Sit, Level of [place]: moderate assist (50% patient effort) Geh-Haicz-Ebk, Assistive Device: other (see comments)(Up walker) Safety Issues: balance decreased during turns, step length decreased Impairments: strength decreased Gait Level of [place]: moderate assist (50% patient effort) Assistive Device: [...] LTG Status new at 12/23/2019 1600 LTG [place] Level supervised at 12/23/2019 1600 LTG Assistive Device none at 12/23/2019 1600 All Transfers Goal Most Recent Value LTG Status new at 12/23/2019 1600 LTG [place] Level modified independent at 12/23/2019 1600 LTG Assistive Device 2 wheeled walker (FWW) at 12/23/2019 1600 Gait Goal Most Recent Value LTG Status new at 12/23/2019 1600 LTG [place] Level stand by assist at 12/23/2019 1600 [...] HIGH Current Discharge Plan Anticipated Discharge Disposition: half-way facility Expected DC Date: 12/30/2019 Barriers to Discharge: placement Steps Taken Toward Discharge: Attended morning rounds Next Steps: d/c to [facility] Swing Bed Community Support Services Current Outpt/Agency/Support Groups: none Community Agency Name: none Other Resources: Discharge Transportation Transportation Needs: agency transportation Notes: Pt not medically ready for discharge. Cm called Idalia CM at [facility] and updat ed her on Pt progress. Pt may be ready for d/c Monday. Cm will continue to follow for placem ent needs. Electronically signed: Ja Marcus RN 12/26/2019 11:46 AM lan of [facility] t - 12/26/2019 10:00 AM PDT Problem: [...] Bed Mobility Sit to Supine, Level of [place]: maximal assist (25% patient effort), verbal cues requ ired Safety Issues: decreased use of legs for bridging/pushing, decreased use of arms for pushin g/pulling Impairments: strength decreased, pain, impaired balance Transfers Sit-Stand, Level of [place]: moderate assist (50% patient effort), verbal cues require d Stand-Sit, Level of [place]: moderate assist (50% patient effort), verbal cues require d Wca-Kfama-Dgu, Assistive Device: 2 wheeled walker (FWW), gait belt Safety Issues: sequencing ability decreased, balance decreased during turns Gait Level of [place]: moderate assist (50% patient effort) Assistive Device: [...] LTG Status new at 12/23/2019 1600 LTG [place] Level supervised at 12/23/2019 1600 LTG Assistive Device none at 12/23/2019 1600 All Transfers Goal Most Recent Value LTG Status new at 12/23/2019 1600 LTG [place] Level modified independent at 12/23/2019 1600 LTG Assistive Device 2 wheeled walker (FWW) at 12/23/2019 1600 Gait Goal Most Recent Value LTG Status new at 12/23/2019 1600 LTG [place] Level stand by assist at 12/23/2019 1600 [...] HIGH Current Discharge Plan Anticipated Discharge Disposition: half-way facility Expected DC Date: 12/27/2019 Barriers to Discharge: placement Steps Taken Toward Discharge: Attended rounds Next Steps: d/c to [facility] Community Support Services Current Outpt/Agency/Support Groups: none Community Agency Name: none Other Resources: Discharge Transportation Transportation Needs: agency transportation Notes: Pt not medically ready for discharge. Cm received call from [facility] from [facility]. Pt has been accepted but wants [...] (Range of Motion), stair training, strengthening, stretching, malagasy ball techniques, w heelchair management/propulsion training Recommended [...] HOB elevated Supine to Sit, Level of [place]: moderate assist (50% patient effort), verbal cues req uired Safety Issues: decreased use of legs for bridging/pushing, decreased use of arms for pushin g/pulling Impairments: strength decreased, pain, impaired balance Transfers Additional Documentation: sit to/from stand Chair-Bed, Level of [place]: moderate assist (50% patient effort), verbal cues require d Eaj-Magch-Ewb, Assistive Device: 2 wheeled walker (FWW) Sit-Stand, Level of [place]: moderate assist (50% patient effort), verbal cues require d Stand-Sit, Level of [place]: moderate assist (50% patient effort), verbal cues require d Dft-Wqdjx-Ujz, Assistive Device: 2 wheeled walker (FWW), gait belt Maintain Weight Bearing Status: able to maintain weight bearing status Safety Issues: sequencing ability decreased, balance decreased during turns Impairments: impaired balance, coordination impaired, pain, decreased flexibility Gait Gait Comments: 4 steps to chair Level of [place]: moderate assist (50% patient effort) Assistive Device: [...] LTG Status new at 12/23/2019 1600 LTG [place] Level supervised at 12/23/2019 1600 LTG Assistive Device none at 12/23/2019 1600 All Transfers Goal Most Recent Value LTG Status new at 12/23/2019 1600 LTG [place] Level modified independent at 12/23/2019 1600 LTG Assistive Device 2 wheeled walker (FWW) at 12/23/2019 1600 Gait Goal Most Recent Value LTG Status new at 12/23/2019 1600 LTG [place] Level stand by assist at 12/23/2019 1600 [...] long handled shoe horn, long handled sponge, line inspector, sock aide(BSC (?)) Barriers to community-based discharge [...] seated in the recliner Grooming, Level of [place]: supervised Assistive Device: none Grooming Assess/Train, Position: sitting Bed Mobility Additional Documentation: supine to/from sit Assistive Device: HOB elevated, bed rails Sit to Supine, Level of [place]: maximal assist (25% patient effort), verbal cues [...] stand, bed to/from chair Chair-Bed, Level of [place]: moderate assist (50% patient effort), verbal cues require d Acz-Ztsmh-Tbl, Assistive Device: gait belt Sit-Stand, Level of [place]: moderate assist (50% patient effort), verbal cues require d Stand-Sit, Level of [place]: moderate assist (50% patient effort), verbal cues require d Gqj-Wovhx-Wmp, Assistive Device: 2 wheeled walker (FWW), gait [...] LTG Status new at 12/24/2019 0953 LTG [place] Level moderate assist (50% patient effort), verbal cues required at 12/23 0953 LTG Adaptive Equipment line inspector, shoe horn, long handled, sock-aid [AE as needed] at 2019 0953 Toilet Transfer Goal Most Recent Value LTG Status new at 12/24/2019 0953 LTG [place] Level minimum assist (75% patient effort), verbal [...] HOB elevated Supine to Sit, Level of [place]: moderate assist (50% patient effort), verbal cues req uired Safety Issues: decreased use of arms for pushing/pulling, decreased use of legs for bridgin g/pushing Impairments: decreased flexibility, pain, impaired balance Transfers Additional Documentation: sit to/from stand Sit-Stand, Level of [place]: minimal assist (75% patient effort) Stand-Sit, Level of [place]: minimal assist (75% patient effort) Apg-Lvbsu-Ulh, Assistive Device: 2 wheeled walker (FWW) Maintain Weight Bearing Status: able to maintain weight bearing status Safety Issues: sequencing ability decreased Impairments: decreased flexibility, impaired balance, pain Gait Gait Comments: side stepping to recliner Level of [place]: minimal assist (75% patient effort) Assistive Device: [...] LTG Status new at 12/23/2019 1600 LTG [place] Level supervised at 12/23/2019 1600 LTG Assistive Device none at 12/23/2019 1600 All Transfers Goal Most Recent Value LTG Status new at 12/23/2019 1600 LTG [place] Level modified independent at 12/23/2019 1600 LTG Assistive Device 2 wheeled walker (FWW) at 12/23/2019 1600 Gait Goal Most Recent Value LTG Status new at 12/23/2019 1600 LTG [place] Level stand by assist at 12/23/2019 1600 [...] PT Total Treatment Time: 38 lan of [facility] - Jada Kendall RN - 12/24/2019 5:21 AM PDTPatient with [...] discharge planning concerns Services Anticipated at Discharge: half-way facility Equipment Used at Home: cane, straight, single point, 2 wheeled walker (FWW) Equipment Needed after Discharge: walker, standard Durable Medical Equipment Provider: Pharmacy/Medication Needs: other (see comments)([facility] in [place], [place]) Transportation Needs: agency transportation Initial Plan Anticipated Discharge Disposition: half-way facility Expected DC Date: other (see comments)(SNF [...] stated that he would like to go [facility] Swi ng bed if needed before going home. Cm called [facility] and received contact [facility] - Idalia Garduno [phone]. Cm sent referral to [facility]. Pt stated that Deanna (daughter) edgardo harmon [...] (Range of Motion), stair training, strengthening, stretching, malagasy ball techniques, wheelchair management/propulsio n training Recommended [...] HOB elevated Supine to Sit, Level of [place]: moderate assist (50% patient effort) Sit to Supine, Level of [place]: maximal assist (25% patient effort) Safety Issues: decreased use of arms for pushing/pulling, decreased use of legs for bridgin g/pushing Impairments: decreased flexibility, impaired balance, pain Transfers Additional Documentation: sit to/from stand Sit-Stand, Level of [place]: minimal assist (75% patient effort) Stand-Sit, Level of [place]: minimal assist (75% patient effort) Kia-Yxejg-Afe, Assistive Device: 2 wheeled walker (FWW) Maintain [...] LTG Status new at 12/23/2019 1600 LTG [place] Level supervised at 12/23/2019 1600 LTG Assistive Device none at 12/23/2019 1600 All Transfers Goal Most Recent Value LTG Status new at 12/23/2019 1600 LTG [place] Level modified independent at 12/23/2019 1600 LTG Assistive Device 2 wheeled walker (FWW) at 12/23/2019 1600 Gait Goal Most Recent Value LTG Status new at 12/23/2019 1600 LTG [place] Level stand by assist at 12/23/2019 1600 [...] Melquiades Baez DO - 12/22/2019 10:34 AM [facility] Service: Orthopaedic [...] by: Melquiades Baez DO, 12/22/2019 10:35 AM [facility] of Care - Cru z, JIAN [...] 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 EKG and Ches [...] day shift and every two hours on clinical interviewer to monitor and medicate appropriately. 2. Staff [...] | | | | | | [facility] | | | | | | [place] [address] | | | | | | [phone] | | | | | | | | +--------+---------+ + + + | 04/21/ | Office | Nephrology | Isiah Jade MD | | 2019 | Visit | | [address] [facility] | | | | | | [address] | | | | | | [address] | | | | | | | | +--------+---------+ + + + | 05/07/ | Office | Cardiology | Charlee Oswald | | | 2019 | Visit | | [address] | | | | | | [address] | | | | | | [place] [address] | | | | | | [phone] | | | | | | | [...] + +--------+ + + + | GATO NATHANAEL CACERES, | Routin | 12/22/2019 | | Results for this | | ARTERIAL | e | 8:47 AM | | procedure are in the | | | | PDT | | results section. | + +--------+ + + + | GATO NATHANAEL CACERES, | Routin | 12/22/2019 | | Results [...] | | | POC | performed at [facility];[address] | LAB[address]AT[address] | | | [address];[place], [place] | | | | | | [address] | | | | + + + + + + + + | Specimen | + + | | + + + + + + + | Performing | Address | City/State/Zipcode | Phone Number | | Organization | | | | + + + + + | [facility] | [address] | [place] [address] | [phone] | + + + + + POC Glucose (01/01/2020 6:29 AM PDT) + + + + + + | Component | Value | Ref Range | Performed | Pathologist | | | | | At | Signature | + + + + + + | Glucose, | 143 (H)Comment: Testing | 65 - 99 mg/dL | [facility] | | | POC | performed at [facility];[address] | | LABORATORY | | | | [address];[place] | | | | | | [address] | | | | + + + + + + + + | Specimen | + + | | + + + + + + + | Performing | Address | City/State/Zipcode | Phone Number | | Organization | | | | + + + + + | [facility] | [address] | [place] [address] | [phone] | + + + + + Basic [...] | | | | | | [facility] traceable | | | | | | equation.Testing | | | | | | performed at [facility];[address] | | | | | | [facility];[place], [place] | | | | | | [address] | | | | + + + + + + + + | Specimen | + + | Blood | + + + + + + + | Performing | Address | City/State/Zipcode | Phone Number | | Organization | | | | + + + + + | [facility] | [address] | [place] [address] | [phone] | + + + + + CBC [...] | | | Absolute | performed at [facility];[address] | [address]L | LABORATORY | | | | [address];[place], [place] | | | | | | [address] | | | | + + + + + + + + | Specimen | + + | Blood | + + + + + + + | Performing | Address | City/State/Zipcode | Phone Number | | Organization | | | | + + + + + | [facility] | [address] | [place] [address] | [phone] | + + + + + POC Glucose (12/31/2019 9:02 PM PDT) + + + + + + | Component | Value | Ref Range | Performed | Pathologist | | | | | At | Signature | + + + + + + | Glucose, | 137 (H)Comment: Testing | 65 - 99 mg/dL | [facility] | | | POC | performed at [facility];[address] | | LABORATORY | | | | [address];[place] | | | | | | [address] | | | | + + + + + + + + | Specimen | + + | | + + + + + + + | Performing | Address | City/State/Zipcode | Phone Number | | Organization | | | | + + + + + | [facility] | [address] | [place] [address] | [phone] | + + + + + POC Glucose (12/31/2019 5:31 PM PDT) + + + + + + | Component | Value | Ref Range | Performed | Pathologist | | | | | At | Signature | + + + + + + | Glucose, | 196 (H)Comment: Testing | 65 - 99 mg/dL | [facility] | | | POC | performed at [facility];[address] | | LABORATORY | | | | [address];[place] | | | | | | [address] | | | | + + + + + + + + | Specimen | + + | | + + + + + + + | Performing | Address | City/State/Zipcode | Phone Number | | Organization | | | | + + + + + | [facility] | [address] | [place] [address] | [phone] | + + + + + POC [...] | | | POC | performed at [facility];[address] | | LABORATORY | | | | [address];[place], [place] | | | | | | [address] | | | | + + + + + + + + | Specimen | + + | | + + + + + + + | Performing | Address | City/State/Zipcode | Phone Number | | Organization | | | | + + + + + | [facility] | [address] | [place] [address] | [phone] | + + + + + POC [...] | | | POC | performed at [facility];[address] | | LABORATORY | | | | [address];[place] | | | | | | [address] | | | | + + + + + + + + | Specimen | + + | | + + + + + + + | Performing | Address | City/State/Zipcode | Phone Number | | Organization | | | | + + + + + | [facility] | [address] | [place] [address] | [phone] | + + + + + Basic [...] | 8.5 | 8.5 - 10.5 | [facility] | | | | | mg/dL | LABORATORY | | + + + + + + | Estimated | 18 (L)Comment: GFR <60: | >60 | [facility] | | | GFR | CHRONIC [...] | | | | | performed at [facility], [address] | | | | | | [facility], | | | | | | [place] [address] | | | | + + + + + + + + | Specimen | + + | Blood | + + + + + + + | Performing | Address | City/State/Zipcode | Phone Number | | Organization | | | | + + + + + | [facility] | [address] | [place] [address] | [phone] | + + + + + CBC [...] | | | Absolute | performed at [facility], [address] | K/uL | LABORATORY | | | | [address], | | | | | | [place] [address] | | | | + + + + + + + + | Specimen | + + | Blood | + + + + + + + | Performing | Address | City/State/Zipcode | Phone Number | | Organization | | | | + + + + + | [facility] | [address] | [place] [address] | [phone] | + + + + + POC Glucose (12/30/2019 8:55 PM PDT) + + + + + + | Component | Value | Ref Range | Performed | Pathologist | | | | | At | Signature | + + + + + + | Glucose, | 192 (H)Comment: Testing | 65 - 99 mg/dL | [facility] | | | POC | performed at [facility];[address] | | LABORATORY | | | | [address];[place] | | | | | | [address] | | | | + + + + + + + + | Specimen | + + | | + + + + + + + | Performing | Address | City/State/Zipcode | Phone Number | | Organization | | | | + + + + + | [facility] [facility] | [address] | [place] [address] | [phone] | + + + + + POC Glucose (12/30/2019 4:11 PM PDT) + + + + + + | Component | Value | Ref Range | Performed | Pathologist | | | | | At | Signature | + + + + + + | Glucose, | 130 (H)Comment: Testing | 65 - 99 mg/dL | [facility] | | | POC | performed at [facility];[address] | | LABORATORY | | | | [address];[place], [place] | | | | | | [address] | | | | + + + + + + + + | Specimen | + + | | + + + + + + + | Performing | Address | City/State/Zipcode | Phone Number | | Organization | | | | + + + + + | [facility] | [address] | [place] [address] | [phone] | + + + + + POC [...] | | | POC | performed at [facility];[address] | | LABORATORY | | | | [address];[place], [place] | | | | | | [address] | | | | + + + + + + + + | Specimen | + + | | + + + + + + + | Performing | Address | City/State/Zipcode | Phone Number | | Organization | | | | + + + + + | [facility] | [address] | [place] [address] | [phone] | + + + + + Basic [...] 20 (L)Comment: GFR <60: | >60 | [facility] | | | GFR | CHRONIC [...] | | | | | | [facility] traceable | | | | | | equation.Testing | | | | | | performed at [facility];[address] | | | | | | [facility];[place], [place] | | | | | | [address] | | | | + + + + + + + + | Specimen | + + | Blood | + + + + + + + | Performing | Address | City/State/Zipcode | Phone Number | | Organization | | | | + + + + + | [facility] | [address] | [place] [address] | [phone] | + + + + + POC Glucose (12/30/2019 6:04 AM PDT) + + + + + + | Component | Value | Ref Range | Performed | Pathologist | | | | | At | Signature | + + + + + + | Glucose, | 103 (H)Comment: Testing | 65 - 99 mg/dL | [facility] | | | POC | performed at [facility];[address] | | LABORATORY | | | | [address];[place] | | | | | | [address] | | | | + + + + + + + + | Specimen | + + | | + + + + + + + | Performing | Address | City/State/Zipcode | Phone Number | | Organization | | | | + + + + + | [facility] | [address] | [place] [address] | [phone] | + + + + + CBC [...] | | | Absolute | performed at [facility];[address] | K/uL | LABORATORY | | | | [address];[place], [place] | | | | | | [address] | | | | + + + + + + + + | Specimen | + + | Blood | + + + + + + + | Performing | Address | City/State/Zipcode | Phone Number | | Organization | | | | + + + + + | [facility] | [address] | [place] [address] | [phone] | + + + + + POC Glucose (12/29/2019 11:56 PM PDT) + + + + + + | Component | Value | Ref Range | Performed | Pathologist | | | | | At | Signature | + + + + + + | Glucose, | 109 (H)Comment: Testing | 65 - 99 mg/dL | [facility] | | | POC | performed at [facility];[address] | | LABORATORY | | | | [address];[place] | | | | | | [address] | | | | + + + + + + + + | Specimen | + + | | + + + + + + + | Performing | Address | City/State/Zipcode | Phone Number | | Organization | | | | + + + + + | [facility] | [address] | [place] [address] | [phone] | + + + + + Hemoglobin [...] [facility] | | | | performed at [facility];[address] | | LABORATORY | | | | [address];[place], [place] | | | | | | [address] | | | | + + + + + + + + | Specimen | + + | Blood | + + + + + + + | Performing | Address | City/State/Zipcode | Phone Number | | Organization | | | | + + + + + | [facility] | [address] | [place] [address] | [phone] | + + + + + POC Glucose (12/29/2019 6:06 PM PDT) + + + + + + | Component | Value | Ref Range | Performed | Pathologist | | | | | At | Signature | + + + + + + | Glucose, | 128 (H)Comment: Testing | 65 - 99 mg/dL | [facility] | | | POC | performed at [facility];[address] | | LABORATORY | | | | [address];[place] | | | | | | [address] | | | | + + + + + + + + | Specimen | + + | | + + + + + + + | Performing | Address | City/State/Zipcode | Phone Number | | Organization | | | | + + + + + | [facility] | [address] | [place] [address] | [phone] | + + + + + Hemoglobin [...] [facility] | | | | performed at [facility];[address] | | LABORATORY | | | | [address];[place] | | | | | | [address] | | | | + + + + + + + + | Specimen | + + | Blood | + + + + + + + | Performing | Address | City/State/Zipcode | Phone Number | | Organization | | | | + + + + + | [facility] | [address] [facility] | [place] [address] | [phone] | + + + + + POC Glucose (12/29/2019 11:43 AM PDT) + + + + + + | Component | Value | Ref Range | Performed | Pathologist | | | | | At | Signature | + + + + + + | Glucose, | 191 (H)Comment: Testing | 65 - 99 mg/dL | [facility] | | | POC | performed at [facility];[address] | | LABORATORY | | | | [address];[place] | | | | | | [address] | | | | + + + + + + + + | Specimen | + + | | + + + + + + + | Performing | Address | City/State/Zipcode | Phone Number | | Organization | | | | + + + + + | [facility] | [address] | [place] [address] | [phone] | + + + + + POC Glucose (12/29/2019 11:06 AM PDT) + + + + + + | Component | Value | Ref Range | Performed | Pathologist | | | | | At | Signature | + + + + + + | Glucose, | 205 (H)Comment: Testing | 65 - 99 mg/dL | [facility] | | | POC | performed at [facility];[address] | | LABORATORY | | | | [address];[place], [place] | | | | | | [address] | | | | + + + + + + + + | Specimen | + + | | + + + + + + + | Performing | Address | City/State/Zipcode | Phone Number | | Organization | | | | + + + + + | [facility] | [address] | [place] [address] | [phone] | + + + + + Surgical [...] | | technical component was performed by [employer], [address] [place] [address] | | [place] [address] (Cafe Helper: Padmini Sellers MD; CLIA# | | | [id number]). Professional interpretation was performed [employer] | | | [address], | | | [place] [address] (Cafe Helper: Oscar Maynard M.D.; CLIA#: | | | [id number]). Diagnostician: Padmini Sellers | | | MDPathologistElectronically [...] | |The technical component was performed by [employer], [address] [place] [address] (Cafe Helper: Padmini Sellers MD; CLIA# [id number]). Professional interpretation was performed by | | |[employer], [address] [address] (Cafe Helper: Oscar Maynard M.D.; CLIA#: [id number]). | | | | | |Diagnostician: Padmini [...] Performed At | + + + | [facility] | [facility] | | [facility] | [facility] | | CenterGastroenterology | | | Patient Name: Andres Guzmán | | | Procedure Date: 12/29/2019 8:36 AMMRN: [id number] | | | of : 1930 | [...] the anesthesiologist and the | | | endoscopy technician in the pre-procedure area in the [...] | | | with Gold probe 7 Omani x 5 pulses was successful with | [...] | | | AMNumber of Addenda: 0 [facility] | | | - Check hemoglobin q 6 hours for one day. | | | | | | | | |LAMONT HERNANDEZ MD | | |12/29/2019 10:19:54 AM | | |This report has been signed electronically. | | | | | |Note Initiated On: 12/29/2019 8:36 AM | | |Number of Addenda: 0 | | | | | | [facility] | | + + + + +---------+ + + | Performing | Address | City/State/[facility]code | Phone Number | | Organization | [...] [facility] | | | | performed at [facility];[address] | | LABORATORY | | | | [address];[place], [place] | | | | | | [address] | | | | + + + + + + + + | Specimen | + + | Blood | + + + + + + + | Performing | Address | City/State/Zipcode | Phone Number | | Organization | | | | + + + + + | [facility] | [address] | [place] [address] | [phone] | + + + + + POC Glucose (12/29/2019 6:06 AM PDT) + + + + + + | Component | Value | Ref Range | Performed | Pathologist | | | | | At | Signature | + + + + + + | Glucose, | 146 (H)Comment: Testing | 65 - 99 mg/dL | [facility] | | | POC | performed at [facility];[address] | | LABORATORY | | | | [address];[place] | | | | | | [address] | | | | + + + + + + + + | Specimen | + + | | + + + + + + + | Performing | Address | City/State/Zipcode | Phone Number | | Organization | | | | + + + + + | [facility] | [address] | [place] [address] | [phone] | + + + + + CBC [...] | | | Absolute | performed at [facility];[address] | K/uL | LABORATORY | | | | [address];[place] | | | | | | [address] | | | | + + + + + + + + | Specimen | + + | Blood | + + + + + + + | Performing | Address | City/State/Zipcode | Phone Number | | Organization | | | | + + + + + | [facility] | [address] | [place] [address] | [phone] | + + + + + Shine [...] | | | | | performed at [facility] | | | | | | [address];[place], [place] | | | | | | [address] | | | | + + + + + + + + | Specimen | + + | Blood | + + + + + + + | Performing | Address | City/State/Zipcode | Phone Number | | Organization | | | | + + + + + | [facility] | [address] | [place] [address] | [phone] | + + + + + Basic [...] 20 (L)Comment: GFR <60: | >60 | [facility] | | | GFR | CHRONIC [...] | | | | | | MDRD IDIN traceable | | | | | | equation.Testing | | | | | | performed at [facility];[address] | | | | | | [facility];[place], [place] | | | | | | [address] | | | | + + + + + + + + | Specimen | + + | Blood | + + + + + + + | Performing | Address | City/State/Zipcode | Phone Number | | Organization | | | | + + + + + | [facility] | [address] [facility] | [place] [address] | [phone] | + + + + + POC Glucose (12/28/2019 11:27 PM PDT) + + + + + + | Component | Value | Ref Range | Performed | Pathologist | | | | | At | Signature | + + + + + + | Glucose, | 192 (H)Comment: Testing | 65 - 99 mg/dL | [facility] | | | POC | performed at [facility];[address] | | LABORATORY | | | | [address];[place] | | | | | | [address] | | | | + + + + + + + + | Specimen | + + | | + + + + + + + | Performing | Address | City/State/Zipcode | Phone Number | | Organization | | | | + + + + + | [facility] | [address] | [place] [address] | [phone] | + + + + + Hemoglobin [...] Testing | 39.0 - 50.0 % | [facility] | | | | performed at [facility];[address] | | LABORATORY | | | | [address];[place] | | | | | | [address] | | | | + + + + + + + + | Specimen | + + | Blood | + + + + + + + | Performing | Address | City/State/Zipcode | Phone Number | | Organization | | | | + + + + + | [facility] | [address] | [place] [address] | [phone] | + + + + + POC [...] | | | POC | performed at [facility];[address] | | LABORATORY | | | | [address];[place], [place] | | | | | | [address] | | | | + + + + + + + + | Specimen | + + | | + + + + + + + | Performing | Address | City/State/Zipcode | Phone Number | | Organization | | | | + + + + + | [facility] | [address] | [place] [address] | [phone] | + + + + + Fecal Hemoglobin (12/28/2019 7:20 PM PDT) + + + + + + | Component | Value | Ref Range | Performed | Pathologist | | | | | At | Signature | + + + + + + | FECAL | POSITIVE (A)Comment: | NEG | [facility] | | | OCCULT BLD | Testing performed at | | LABORATORY | | | | [facility];[address];[place] [address] | | | | + + + + + + + + | Specimen | + + | Stool - Stool | | specimen (specimen) | + + + + + + + | Performing | Address | City/State/Zipcode | Phone Number | | Organization | | | | + + + + + | [facility] | [address] | [place] [address] | [phone] | + + + + + POC [...] | | | POC | performed at [facility];[address] | | LABORATORY | | | | [address];[place] | | | | | | [address] | | | | + + + + + + + + | Specimen | + + | | + + + + + + + | Performing | Address | City/State/Zipcode | Phone Number | | Organization | | | | + + + + + | [facility] | [address] | [place] [address] | [phone] | + + + + + Hemoglobin [...] [facility] | | | | performed at [facility];[address] | | LABORATORY | | | | [address];[place] | | | | | | [address] | | | | + + + + + + + + | Specimen | + + | Blood | + + + + + + + | Performing | Address | City/State/Zipcode | Phone Number | | Organization | | | | + + + + + | [facility] | [address] [facility] | [place] [address] | [phone] | + + + + + POC [...] | | | POC | performed at [facility];[address] | | LABORATORY | | | | [address];[place] | | | | | | [address] | | | | + + + + + + + + | Specimen | + + | | + + + + + + + | Performing | Address | City/State/Zipcode | Phone Number | | Organization | | | | + + + + + | [facility] | [address] | [place] [address] | [phone] | + + + + + POC Glucose (12/28/2019 7:03 AM PDT) + + + + + + | Component | Value | Ref Range | Performed | Pathologist | | | | | At | Signature | + + + + + + | Glucose, | 153 (H)Comment: Testing | 65 - 99 mg/dL | [facility] | | | POC | performed at [facility];[address] | | LABORATORY | | | | [address];[place] | | | | | | [address] | | | | + + + + + + + + | Specimen | + + | | + + + + + + + | Performing | Address | City/State/Zipcode | Phone Number | | Organization | | | | + + + + + | [facility] | [address] | [place] [address] | [phone] | + + + + + CBC [...] | | | Absolute | performed at [facility], [address] | K/uL | LABORATORY | | | | [address], | | | | | | [place] [address] | | | | + + + + + + + + | Specimen | + + | Blood | + + + + + + + | Performing | Address | City/State/Zipcode | Phone Number | | Organization | | | | + + + + + | [facility] | [address] | [place] [address] | [phone] | + + + + + Basic [...] 16 (L)Comment: GFR <60: | >60 | [facility] | | | GFR | CHRONIC [...] | | | | | performed at [facility], [address] | | | | | | [facility], | | | | | | [place] [address] | | | | + + + + + + + + | Specimen | + + | Blood | + + + + + + + | Performing | Address | City/State/Zipcode | Phone Number | | Organization | | | | + + + + + | [facility] | [address] | [place] [address] | [phone] | + + + + + POC Glucose (12/27/2019 8:44 PM PDT) + + + + + + | Component | Value | Ref Range | Performed | Pathologist | | | | | At | Signature | + + + + + + | Glucose, | 191 (H)Comment: Testing | 65 - 99 mg/dL | [facility] | | | POC | performed at [facility];[address] | | LABORATORY | | | | [address];[place] | | | | | | [address] | | | | + + + + + + + + | Specimen | + + | | + + + + + + + | Performing | Address | City/State/Zipcode | Phone Number | | Organization | | | | + + + + + | [facility] | [address] | [place] [address] | [phone] | + + + + + POC Glucose (12/27/2019 3:30 PM PDT) + + + + + + | Component | Value | Ref Range | Performed | Pathologist | | | | | At | Signature | + + + + + + | Glucose, | 156 (H)Comment: Testing | 65 - 99 mg/dL | [facility] | | | POC | performed at [facility];[address] | | LABORATORY | | | | [address];[place], [place] | | | | | | [address] | | | | + + + + + + + + | Specimen | + + | | + + + + + + + | Performing | Address | City/State/Zipcode | Phone Number | | Organization | | | | + + + + + | [facility] | [address] | [place] [address] | [phone] | + + + + + Red [...] | [facility] | | | COMMENT | [facility];[address] | | LABORATORY | | | | [address];[place] [address] | | | | + + + + + + + + | Specimen | + + | | + + + + + + + | Performing | Address | City/State/Zipcode | Phone Number | | Organization | | | | + + + + + | [facility] | [address] | [place] [address] | [phone] | + + + + + Type [...] + + + | BB BAND | [id number] | | [facility] | | | | | | LABORATORY | | + + + + + + | UNIT # | [id number] | | [facility] | | | | [...] + + + | UNIT # | [id number] | | [facility] | | | | [...] + | CROSSMATCH | COMPATIBLETesting | | [facility] | | | RESULT | performed at [facility];[address] | | LABORATORY | | | | [address];[place] | | | | | | [address] | | | | + + + + + + + + | Specimen | + + | Blood | + + + + + + + | Performing | Address | City/State/Zipcode | Phone Number | | Organization | | | | + + + + + | [facility] | [address] | [place] [address] | [phone] | + + + + + POC [...] | | | POC | performed at [facility];[address] | | LABORATORY | | | | [address];[place] | | | | | | [address] | | | | + + + + + + + + | Specimen | + + | | + + + + + + + | Performing | Address | City/State/Zipcode | Phone Number | | Organization | | | | + + + + + | [facility] | [address] | [place] [address] | [phone] | + + + + + CBC [...] 0.02Comment: Testing | 0.00 - 0.10 | [facility] | | | Absolute | performed at [facility], [address] | K/uL | LABORATORY | | | | [address], | | | | | | [place] [address] | | | | + + + + + + + + | Specimen | + + | | + + + + + + + | Performing | Address | City/State/Zipcode | Phone Number | | Organization | | | | + + + + + | [facility] | [address] | [place] [address] | [phone] | + + + + + Procalcitonin [...] | | | | | | at [facility];[address] [place] [address] | | | | | | [facility];[place] [address] | | | | + + + + + + + + | Specimen | + + | Blood | + + + + + + + | Performing | Address | City/State/Zipcode | Phone Number | | Organization | | | | + + + + + | [facility] | [address] | [place] [address] | [phone] | + + + + + Basic [...] 13 (L)Comment: GFR <60: | >60 | [facility] | | | GFR | CHRONIC [...] | | | | | | MDRD IDIN traceable | | | | | | equation.Testing | | | | | | performed at [facility], [address] | | | | | | [facility], | | | | | | [place] [address] | | | | + + + + + + + + | Specimen | + + | Blood | + + + + + + + | Performing | Address | City/State/Zipcode | Phone Number | | Organization | | | | + + + + + | [facility] | [address] | [place] [address] | [phone] | + + + + + Vitamin D, Deficiency Screen (25-Hydroxy) (12/27/2019 5:04 AM PDT) + + + + + + | Component | Value | Ref Range | Performed | Pathologist | | | | | At | Signature | + + + + + + | Vit D, | 25.2 (L)Comment: Vitamin | 30.0 - 100.0 | [facility] | | | 25-Hydroxy | D deficiency has been | ng/mL | LABORATORY | | | | defined by the [place] | | | | | | of[facility] and an | | | | | [...] IOM | | | | | | ([place] of Medicine). | | | | | | 2009. Dietary reference | | | | | | intakes for calcium | | | | | | and D. [place]: | | | | | | The [employer]ies | | | | | | Press.2. Hernan [place], | | | | | | Sushil [place], | | | | | | Tri DUKES et | | | | | [...] | | | | | performed at [facility], | | | | | | [address], | | | | | | [facility] [address] | | | | + + + + + + + + | Specimen | + + | Blood | + + + + + + + | Performing | Address | City/State/[facility] | Phone Number | | Organization | | | | + + + + + | [facility] | [address] | [place] [address] | [phone] | + + + + + Potassium (12/27/2019 12:08 AM PDT) + + + + + + | Component | Value | Ref Range | Performed | Pathologist | | | | | At | Signature | + + + + + + | K | 4.0Comment: Testing | 3.5 - 4.9 | [facility] | | | | performed at [facility];[address] | mmol/L | LABORATORY | | | | [address];[place] | | | | | | [address] | | | | + + + + + + + + | Specimen | + + | Blood | + + + + + + + | Performing | Address | City/State/Zipcode | Phone Number | | Organization | | | | + + + + + | [facility] | [address] | [place] [address] | [phone] | + + + + + Magnesium (12/27/2019 12:08 AM PDT) + + + + + + | Component | Value | Ref Range | Performed | Pathologist | | | | | At | Signature | + + + + + + | Magnesium | 2.2Comment: Testing | 1.7 - 2.4 mg/dL | [facility] | | | | performed at [facility];[address] | | LABORATORY | | | | [address];[place] | | | | | | [address] | | | | + + + + + + + + | Specimen | + + | Blood | + + + + + + + | Performing | Address | City/State/Zipcode | Phone Number | | Organization | | | | + + + + + | [facility] | [address] | [place] [address] | [phone] | + + + + + ECG [...] | | | POC | performed at [facility];[address] | | LABORATORY | | | | Rosalia Mccain;[place] | | | | | | [address] | | | | + + + + + + + + | Specimen | + + | | + + + + + + + | Performing | Address | City/State/Zipcode | Phone Number | | Organization | | | | + + + + + | [facility] | [address] | [place] [address] | [phone] | + + + + + POC [...] | | | POC | performed at [facility];[address] | | LABORATORY | | | | Rosalia Mccain;[place], [place] | | | | | | [address] | | | | + + + + + + + + | Specimen | + + | | + + + + + + + | Performing | Address | City/State/Zipcode | Phone Number | | Organization | | | | + + + + + | [facility] | [address] | [place] [address] | [phone] | + + + + + Complement [...] | | | COMPLEMENT | performed at [facility], | | LABORATORY | | | | [address], | | | | | | [facility] [address] | | | | + + + + + + + + | Specimen | + + | | + + + + + + + | Performing | Address | City/State/Zipcode | Phone Number | | Organization | | | | + + + + + | [facility] | [address] | [place] [address] | [phone] | + + + + + Complement C3 Ag (12/26/2019 12:33 PM PDT) + + + + + + | Component | Value | Ref Range | Performed | Pathologist | | | | | At | Signature | + + + + + + | C3 | 53 (L)Comment: Testing | 82 - 167 mg/dL | [facility] | | | COMPLEMENT | performed at [facility], | | LABORATORY | | | | [address], | | | | | | [facility] [address] | | | | + + + + + + + + | Specimen | + + | | + + + + + + + | Performing | Address | City/State/Zipcode | Phone Number | | Organization | | | | + + + + + | [facility] | [address] | [place] [address] | [phone] | + + + + + POC Glucose (12/26/2019 11:15 AM PDT) + + + + + + | Component | Value | Ref Range | Performed | Pathologist | | | | | At | Signature | + + + + + + | Glucose, | 161 (H)Comment: Testing | 65 - 99 mg/dL | [facility] | | | POC | performed at [facility];[address] | | LABORATORY | | | | [address];[place] | | | | | | [address] | | | | + + + + + + + + | Specimen | + + | | + + + + + + + | Performing | Address | City/State/Zipcode | Phone Number | | Organization | | | | + + + + + | [facility] | [address] | [place] [address] | [phone] | + + + + + POC [...] | | | POC | performed at [facility];[address] | | LABORATORY | | | | [address];[place], [place] | | | | | | [address] | | | | + + + + + + + + | Specimen | + + | | + + + + + + + | Performing | Address | City/State/Zipcode | Phone Number | | Organization | | | | + + + + + | [facility] | [address] | [place] [address] | [phone] | + + + + + Parathyroid Hormone, Intraoperative (12/26/2019 4:25 AM PDT) + + + + + + | Component | Value | Ref Range | Performed | Pathologist | | | | | At | Signature | + + + + + + | PTH Intact | 167.0 (H)Comment: | 8.7 - 79.6 | [facility] | | | | Testing performed at | pg/mL | LABORATORY | | | | [facility];[address] | | [address];[place] [address] | | | | + + + + + + + + | Specimen | + + | | + + + + + + + | Performing | Address | City/State/Zipcode | Phone Number | | Organization | | | | + + + + + | [facility] | [address] | [place] [address] | [phone] | + + + + + Renal [...] | | | | | performed at [facility], [address] | | | | | | [address], | | | | | | [place] [address] | | | | + + + + + + + + | Specimen | + + | Blood | + + + + + + + | Performing | Address | City/State/Zipcode | Phone Number | | Organization | | | | + + + + + | [facility] | [address] | [place] [address] | [phone] | + + + + + POC [...] | | | POC | performed at [facility];[address] | | LABORATORY | | | | [address];[place], [place] | | | | | | [address] | | | | + + + + + + + + | Specimen | + + | | + + + + + + + | Performing | Address | City/State/Zipcode | Phone Number | | Organization | | | | + + + + + | [facility] | [address] | [place] [address] | [phone] | + + + + + POC [...] | | | POC | performed at [facility];[address] | | LABORATORY | | | | [address];[place] | | | | | | [address] | | | | + + + + + + + + | Specimen | + + | | + + + + + + + | Performing | Address | City/State/Zipcode | Phone Number | | Organization | | | | + + + + + | [facility] | [address] | [place] [address] | [phone] | + + + + + ECHO [...] | | | POC | performed at [facility];[address] | | LABORATORY | | | | [address];[place], [place] | | | | | | [address] | | | | + + + + + + + + | Specimen | + + | | + + + + + + + | Performing | Address | City/State/Zipcode | Phone Number | | Organization | | | | + + + + + | [facility] | [address] | [place] [address] | [phone] | + + + + + POC Glucose (12/25/2019 7:56 AM PDT) + + + + + + | Component | Value | Ref Range | Performed | Pathologist | | | | | At | Signature | + + + + + + | Glucose, | 136 (H)Comment: Testing | 65 - 99 mg/dL | [facility] | | | POC | performed at [facility];[address] | | LABORATORY | | | | [address];[place] | | | | | | [address] | | | | + + + + + + + + | Specimen | + + | | + + + + + + + | Performing | Address | City/State/Zipcode | Phone Number | | Organization | | | | + + + + + | [facility] | [address] | [place] [address] | [phone] | + + + + + CK Total (12/25/2019 4:25 AM PDT) + + + + + + | Component | Value | Ref Range | Performed | Pathologist | | | | | At | Signature | + + + + + + | CK TOTAL | 104Comment: Testing | 55 - 400 U/L | [facility] | | | | performed at [facility];[address] | | LABORATORY | | | | [address];[place] | | | | | | [address] | | | | + + + + + + + + | Specimen | + + | Blood | + + + + + + + | Performing | Address | City/State/Zipcode | Phone Number | | Organization | | | | + + + + + | [facility] | [address] | [place] [address] | [phone] | + + + + + Renal [...] | | | | | | MDRD IDIN traceable | | | | | | equation.Testing | | | | | | performed at [facility], [address] | | | | | | [facility], | | | | | | [place] [address] | | | | + + + + + + + + | Specimen | + + | Blood | + + + + + + + | Performing | Address | City/State/Zipcode | Phone Number | | Organization | | | | + + + + + | [facility] | [address] | [place] [address] | [phone] | + + + + + Cytoplasmic Neutrophil Ab (12/25/2019 4:22 AM PDT) + + + + + + | Component | Value | Ref Range | Performed | Pathologist | | | | | At | Signature | + + + + + + | C ANCA | <1:20 | Neg:<1:20 titer | [facility] | | | | | | LABORATORY [...] | | | | | performed by [employer], | | | | | | [address], | | | | | | [facility] [address] | | | | + + + + + + + + | Specimen | + + | Blood | + + + + + + + | Performing | Address | City/State/Zipcode | Phone Number | | Organization | | | | + + + + + | [facility] | [address] | [place] [address] | [phone] | + + + + + Sedimentation Rate (12/25/2019 4:22 AM PDT) + + + + + + | Component | Value | Ref Range | Performed | Pathologist | | | | | At | Signature | + + + + + + | ESR | 6Comment: Testing | 0 - 20 mm/Hr | [facility] | | | | performed at [facility], [address] | | LABORATORY | | | | [address], | | | | | | [place] [address] | | | | + + + + + + + + | Specimen | + + | Blood | + + + + + + + | Performing | Address | City/State/Zipcode | Phone Number | | Organization | | | | + + + + + | [facility] | [address] | [place] [address] | [phone] | + + + + + Immunoglobulin, Free Light Chain (12/25/2019 4:22 AM PDT) + + + + + + | Component | Value | Ref Range | Performed | Pathologist | | | | | At | Signature | + + + + + + | [place] Free | 121.2 (H) | 3.3 - 19.4 mg/L | [facility] | | | Light | | | [...] + + + + + + | [place] | 1.25Comment: Testing | 0.26 - 1.65 | [facility] | | | a Free | performed at [facility] | | LABORATORY | | | Light Chain | [place], [address] | | | | | Ratio | [place] [address] | | | | + + + + + + + + | Specimen | + + | Blood | + + + + + + + | Performing | Address | City/State/Zipcode | Phone Number | | Organization | | | | + + + + + | [facility] | [address] | [place] [address] | [phone] | + + + + + Glomerular Basement Membrane Ab, IgG (12/25/2019 4:22 AM PDT) + + + + + + | Component | Value | Ref Range | Performed | Pathologist | | | | | At | Signature | + + + + + + | Antiglomeru | 2Comment: | 0 - 20 units | [facility] | | | lar BM Ab, | [...] | | | | | [address] | | | | | | [place] | | | | | | [address] | | | | + + + + + + + + | Specimen | + + | Blood | + + + + + + + | Performing | Address | City/State/Zipcode | Phone Number | | Organization | | | | + + + + + | [facility] | [address] | [place] [address] | [phone] | + + + + + Hepatitis [...] | | | | | 0.9The [facility] recommends | | | | | | that a positive HCV | | | | | | antibody resultbe | | | | | | followed up with a HCV | | | | | | Nucleic Acid | | | | | | Amplificationtest | | | | | | ([id number]).Testing | | | | | | performed at [facility], | | | | | | [address], | | | | | | [facility] [address] | | | | + + + + + + + + | Specimen | + + | Blood | + + + + + + + | Performing | Address | City/State/Zipcode | Phone Number | | Organization | | | | + + + + + | [facility] | [address] | [place] [address] | [phone] | + + + + + CK Total (12/25/2019 4:22 AM PDT) + + + + + + | Component | Value | Ref Range | Performed | Pathologist | | | | | At | Signature | + + + + + + | CK TOTAL | 100Comment: Testing | 55 - 400 U/L | [facility] | | | | performed at [facility];[address] | | LABORATORY | | | | [address];[place] | | | | | | [address] | | | | + + + + + + + + | Specimen | + + | Blood | + + + + + + + | Performing | Address | City/State/Zipcode | Phone Number | | Organization | | | | + + + + + | [facility] | [address] | [place] [address] | [phone] | + + + + + Lactate Dehydrogenase (12/25/2019 4:22 AM PDT) + + + + + + | Component | Value | Ref Range | Performed | Pathologist | | | | | At | Signature | + + + + + + | LDH TOTAL | 154Comment: Testing | 120 - 246 U/L | [facility] | | | | performed at [facility];[address] | | LABORATORY | | | | [address];[place] | | | | | | [address] | | | | + + + + + + + + | Specimen | + + | Blood | + + + + + + + | Performing | Address | City/State/Zipcode | Phone Number | | Organization | | | | + + + + + | [facility] | [address] | [place] [address] | [phone] | + + + + + Magnesium (12/25/2019 4:22 AM PDT) + + + + + + | Component | Value | Ref Range | Performed | Pathologist | | | | | At | Signature | + + + + + + | Magnesium | 2.5 (H)Comment: Testing | 1.7 - 2.4 mg/dL | [facility] | | | | performed at [facility], [address] | | LABORATORY | | | | [address], | | | | | | [place] [address] | | | | + + + + + + + + | Specimen | + + | Blood | + + + + + + + | Performing | Address | City/State/Zipcode | Phone Number | | Organization | | | | + + + + + | [facility] | [address] | [place] [address] | [phone] | + + + + + Protein, [...] LABORATORY | | | | performed at [facility], [address] | | | | | [address], | | | | | | [place] [address] | | | | + + + + + + + + | Specimen | + + | | + + + + + + + | Performing | Address | City/State/Zipcode | Phone Number | | Organization | | | | + + + + + | [facility] | [address] | [place] [address] | [phone] | + + + + + Creatinine, Urine, Random (12/25/2019 12:01 AM PDT) + + + + + + | Component | Value | Ref Range | Performed | Pathologist | | | | | At | Signature | + + + + + + | Creatinine, | 139.0Comment: NO NORMAL | mg/dL | [facility] | | | random | [facility] | | LABORATORY | | | urine | performed at [facility], [address] | | | | | [address], | | | | | | [place] [address] | | | | + + + + + + + + | Specimen | + + | | + + + + + + + | Performing | Address | City/State/Zipcode | Phone Number | | Organization | | | | + + + + + | [facility] | [address] [facility] | [place] [address] | [phone] | + + + + + Protein/Creatinine Ratio, Urine (12/25/2019 12:01 AM PDT) + + + + + + | Component | Value | Ref Range | Performed | Pathologist | | | | | At | Signature | + + + + + + | PRO/CREA | 0.942Comment: Testing | | [facility] | | | RATIO,URINE | performed at [facility], [address] | | LABORATORY | | | | [address], | | | | | | [place] [address] | | | | + + + + + + + + | Specimen | + + | Urine | + + + + + + + | Performing | Address | City/State/Zipcode | Phone Number | | Organization | | | | + + + + + | [facility] | [address] | [place] [address] | [phone] | + + + + + POC Glucose (12/24/2019 8:55 PM PDT) + + + + + + | Component | Value | Ref Range | Performed | Pathologist | | | | | At | Signature | + + + + + + | Glucose, | 149 (H)Comment: Testing | 65 - 99 mg/dL | [facility] | | | POC | performed at [facility];[address] | | LABORATORY | | | | [address];[place] | | | | | | [address] | | | | + + + + + + + + | Specimen | + + | | + + + + + + + | Performing | Address | City/State/Zipcode | Phone Number | | Organization | | | | + + + + + | [facility] | [address] | [place] [address] | [phone] | + + + + + POC Glucose (12/24/2019 5:14 PM PDT) + + + + + + | Component | Value | Ref Range | Performed | Pathologist | | | | | At | Signature | + + + + + + | Glucose, | 136 (H)Comment: Testing | 65 - 99 mg/dL | [facility] | | | POC | performed at [facility];[address] | | LABORATORY | | | | [address];[place] | | | | | | [address] | | | | + + + + + + + + | Specimen | + + | | + + + + + + + | Performing | Address | City/State/Zipcode | Phone Number | | Organization | | | | + + + + + | [facility] | [address] | [place] [address] | [phone] | + + + + + ECG [...] | | | Arterial, | performed at [facility];[address] | | LABORATORY | | | POC | [facility], [place] | | | | | | [address] | | | | + + + + + + + + | Specimen | + + | | + + + + + + + | Performing | Address | City/State/Zipcode | Phone Number | | Organization | | | | + + + + + | [facility] | [address] | [place] [address] | [phone] | + + + + + Coronavirus (COVID-19) NAAT (12/24/2019 1:10 PM PDT) + + + + + + | Component | Value | Ref Range | Performed | Pathologist | | | | | At | Signature | + + + + + + | SARS-CoV-2, | NEGATIVEComment: Testing | NEG | [facility] | | | NAAT | performed at [facility];[address] | | LABORATORY | | | (COVID-19) | [address];[place], [place] | | | | | | [address] | | | | + + + + + + + + | Specimen | + + | Tissue - Entire | | nasopharynx (body | | structure) | + + + + + + + | Performing | Address | City/State/Zipcode | Phone Number | | Organization | | | | + + + + + | [facility] | [address] | [place] [address] | [phone] | + + + + + Culture, [...] | | LABORATORY | | | | [address];[place] [address] | | | | + + + + + + | RESULT | NO GROWTH 6 DAYS | | [facility] | | | | | | LABORATORY | | + + + + + + | RESULT | Testing performed at | | [facility] | | | | [facility], [address] | | LABORATORY | | | | [place], [place] | | | | | | [address]Bgtuwat: Testing | | | | | | performed at [facility], [address] | | | | | | [place], [place] | | | | | | [address] | | | | + + + + + + + + | Specimen | + + | Blood - Peripheral | | blood specimen | | (specimen) | + + + + + + + | Performing | Address | City/State/Zipcode | Phone Number | | Organization | | | | + + + + + | [facility] | [address] | [place] [address] | [phone] | + + + + + Culture, Blood (12/24/2019 12:56 PM PDT) + + + + + + | Component | Value | Ref Range | Performed | Pathologist | | | | | At | Signature | + + + + + + | Special | LF ARM | | [facility] | | | Requests | | | LABORATORY | | + + + + + + | Special | Testing performed at | | [facility] | | | Requests | [facility];[address] | | LABORATORY | | | | [address];[place] [address] | | | | + + + + + + | RESULT | NO GROWTH 6 DAYS | | [facility] | | | | | | LABORATORY | | + + + + + + | RESULT | Testing performed at | | [facility] | | | | [facility], [address] | | LABORATORY | | | | [place] | | | | | | [address]Eqpjcma: Testing | | | | | | performed at [facility], [address] | | | | | | [address] [place] | | | | | | [address] | | | | + + + [...] [facility] | [address] | [place] [address] | [phone] | + + + + + Urinalysis [...] - 1.030 | [facility] | | | [place], | | | LABORATORY | | | [...] | 1+ (A)Comment: Testing | NONE | [facility] | | | Urine | performed at [facility], [address] | | LABORATORY | | | | [address], | | | | | | [place] [address] | | | | + + + [...] | + + + + + | [facility] | [address] | [place] [address] | [phone] | + + + + + Sodium, Urine, Random (12/24/2019 12:45 PM PDT) + + + + + + | Component | Value | Ref Range | Performed | Pathologist | | | | | At | Signature | + + + + + + | Sodium, | 52Comment: NO NORMAL | mmol/L | [facility] | | | Random | [facility] | | LABORATORY | | | urine | performed at [facility], [address] | | | | | | [address], | | | | | | [place] [address] | | | | + + + [...] | + + + + + | [facility] | [address] | [place] [address] | [phone] | + + + + + Creatinine, Urine, Random (12/24/2019 12:45 PM PDT) + + + + + + | Component | Value | Ref Range | Performed | Pathologist | | | | | At | Signature | + + + + + + | Creatinine, | 70.0Comment: NO NORMAL | mg/dL | [facility] | | | random | [facility] | | LABORATORY | | | urine | performed at [facility], [address] | | | | | [address], | | | | | | [place] [address] | | | | + + + [...] | + + + + + | [facility] | [address] | [place] [address] | [phone] | + + + + + Lactic Acid (12/24/2019 12:27 PM PDT) + + + + + + | Component | Value | Ref Range | Performed | Pathologist | | | | | At | Signature | + + + + + + | Lactate, | 1.6Comment: Testing | 0.4 - 2.0 | [facility] | | | Serum | performed at [facility];[address] | mmol/L | LABORATORY | | | | [address];[place] | | | | | | [address] | | | | + + + + + + + + | Specimen | + + | Blood | + + + + + + + | Performing | Address | City/State/Zipcode | Phone Number | | Organization | | | | + + + + + | [facility] | [address] | [place] [address] | [phone] | + + + + + Procalcitonin [...] | | | | | | at [facility];[address];[place] [address] | | | | + + + + + + + + | Specimen | + + | Blood | + + + + + + + | Performing | Address | City/State/Zipcode | Phone Number | | Organization | | | | + + + + + | [facility] | [address] | [place] [address] | [phone] | + + + + + POC Glucose (12/24/2019 12:25 PM PDT) + + + + + + | Component | Value | Ref Range | Performed | Pathologist | | | | | At | Signature | + + + + + + | Glucose, | 143 (H)Comment: Testing | 65 - 99 mg/dL | [facility] | | | POC | performed at [facility];[address] | | LABORATORY | | | | [address];[place] | | | | | | [address] | | | | + + + + + + + + | Specimen | + + | | + + + + + + + | Performing | Address | City/State/Zipcode | Phone Number | | Organization | | | | + + + + + | [facility] | [address] | [place] [address] | [phone] | + + + + + POC [...] | | | POC | performed at [facility];[address] | | LABORATORY | | | | [address];[place], [place] | | | | | | [address] | | | | + + + + + + + + | Specimen | + + | | + + + + + + + | Performing | Address | City/State/Zipcode | Phone Number | | Organization | | | | + + + + + | [facility] | [address] | [place] [address] | [phone] | + + + + + CBC [...] | 12.2Comment: NO NORMAL | fl | [facility] | | | | [facility] | | LABORATORY | | | | performed at [facility];[address] | | | | | | [address];[place] | | | | | | [address] | | | | + + + + + + + + | Specimen | + + | Blood | + + + + + + + | Performing | Address | City/State/Zipcode | Phone Number | | Organization | | | | + + + + + | [facility] | [address] | [place] [address] | [phone] | + + + + + Basic [...] | | | | | performed at [facility], [address] | | | | | | [facility], | | | | | | [place] [address] | | | | + + + + + + + + | Specimen | + + | Blood | + + + + + + + | Performing | Address | City/State/Zipcode | Phone Number | | Organization | | | | + + + + + | [facility] | [address] | [place] [address] | [phone] | + + + + + POC [...] | | | POC | performed at [facility];[address] | | LABORATORY | | | | [address];[place], [place] | | | | | | [address] | | | | + + + + + + + + | Specimen | + + | | + + + + + + + | Performing | Address | City/State/Zipcode | Phone Number | | Organization | | | | + + + + + | [facility] | [address] | [place] [address] | [phone] | + + + + + POC Glucose (12/23/2019 4:35 PM PDT) + + + + + + | Component | Value | Ref Range | Performed | Pathologist | | | | | At | Signature | + + + + + + | Glucose, | 129 (H)Comment: Testing | 65 - 99 mg/dL | [facility] | | | POC | performed at [facility];[address] | | LABORATORY | | | | [address];[place] | | | | | | [address] | | | | + + + + + + + + | Specimen | + + | | + + + + + + + | Performing | Address | City/State/Zipcode | Phone Number | | Organization | | | | + + + + + | [facility] | [address] | [place] [address] | [phone] | + + + + + POC Glucose (12/23/2019 2:05 PM PDT) + + + + + + | Component | Value | Ref Range | Performed | Pathologist | | | | | At | Signature | + + + + + + | Glucose, | 158 (H)Comment: Testing | 65 - 99 mg/dL | [facility] | | | POC | performed at [facility];[address] | | LABORATORY | | | | [address];[place] | | | | | | [address] | | | | + + + + + + + + | Specimen | + + | | + + + + + + + | Performing | Address | City/State/Zipcode | Phone Number | | Organization | | | | + + + + + | [facility] | [address] | [place] [address] | [phone] | + + + + + POC [...] | | | POC | performed at [facility];[address] | | LABORATORY | | | | [address];[place], [place] | | | | | | [address] | | | | + + + + + + + + | Specimen | + + | | + + + + + + + | Performing | Address | City/State/Zipcode | Phone Number | | Organization | | | | + + + + + | [facility] | [address] | [place] [address] | [phone] | + + + + + Basic [...] 22 (L)Comment: GFR <60: | >60 | [facility] | | | GFR | CHRONIC [...] | | | | | performed at [facility] | | | | | | [facility];[place], [place] | | | | | | [address] | | | | + + + + + + + + | Specimen | + + | Blood | + + + + + + + | Performing | Address | City/State/Zipcode | Phone Number | | Organization | | | | + + + + + | [facility] | [address] | [place] [address] | [phone] | + + + + + Phosphorus (12/23/2019 4:04 AM PDT) + + + + + + | Component | Value | Ref Range | Performed | Pathologist | | | | | At | Signature | + + + + + + | Phosphorus | 4.6Comment: Testing | 2.3 - 4.8 mg/dL | [facility] | | | | performed at [facility];[address] | | LABORATORY | | | | [address] [address];[place] | | | | | | [address] | | | | + + + + + + + + | Specimen | + + | Blood | + + + + + + + | Performing | Address | City/State/Zipcode | Phone Number | | Organization | | | | + + + + + | [facility] | [address] | [place] [address] | [phone] | + + + + + Magnesium (12/23/2019 4:04 AM PDT) + + + + + + | Component | Value | Ref Range | Performed | Pathologist | | | | | At | Signature | + + + + + + | Magnesium | 2.1Comment: Testing | 1.7 - 2.4 mg/dL | [facility] | | | | performed at [facility];[address] | | LABORATORY | | | | [address];[place], [place] | | | | | | [address] | | | | + + + + + + + + | Specimen | + + | Blood | + + + + + + + | Performing | Address | City/State/Zipcode | Phone Number | | Organization | | | | + + + + + | [facility] | [address] | [place] [address] | [phone] | + + + + + CBC [...] LABORATORY | | | | performed at [facility];[address] | | | | | | [address];[place] | | | | | | [address] | | | | + + + + + + + + | Specimen | + + | Blood | + + + + + + + | Performing | Address | City/State/Zipcode | Phone Number | | Organization | | | | + + + + + | [facility] | [address] | [place] [address] | [phone] | + + + + + Hemoglobin (12/22/2019 9:37 PM PDT) + + + + + + | Component | Value | Ref Range | Performed | Pathologist | | | | | At | Signature | + + + + + + | Hemoglobin | 9.1 (L)Comment: Testing | 13.2 - 17.0 | [facility] | | | | performed at [facility];[address] | g/dL | LABORATORY | | | | [address];[place], [place] | | | | | | [address] | | | | + + + + + + + + | Specimen | + + | Blood | + + + + + + + | Performing | Address | City/State/Zipcode | Phone Number | | Organization | | | | + + + + + | [facility] | [address] | [place] [address] | [phone] | + + + + + Hematocrit (12/22/2019 9:37 PM PDT) + + + + + + | Component | Value | Ref Range | Performed | Pathologist | | | | | At | Signature | + + + + + + | Hematocrit | 27.4 (L)Comment: Testing | 39.0 - 50.0 % | [facility] | | | | performed at [facility];[address] | | LABORATORY | | | | [address];[place] | | | | | | [address] | | | | + + + + + + + + | Specimen | + + | Blood | + + + + + + + | Performing | Address | City/State/Zipcode | Phone Number | | Organization | | | | + + + + + | [facility] | [address] | [place] [address] | [phone] | + + + + + POC [...] | | | POC | performed at [facility];[address] | | LABORATORY | | | | [address];[place] | | | | | | [address] | | | | + + + + + + + + | Specimen | + + | | + + + + + + + | Performing | Address | City/State/Zipcode | Phone Number | | Organization | | | | + + + + + | [facility] | [address] | [place] [address] | [phone] | + + + + + POC [...] | | | POC | performed at [facility];[address] | | LABORATORY | | | | [address];[place] | | | | | | [address] | | | | + + + + + + + + | Specimen | + + | | + + + + + + + | Performing | Address | City/State/Zipcode | Phone Number | | Organization | | | | + + + + + | [facility] | [address] [facility] | [place] [address] | [phone] | + + + + + Red [...] | [facility] | | | COMMENT | [facility];[address] | | LABORATORY | | | | [address];[place] [address] | | | | + + + + + + + + | Specimen | + + | | + + + + + + + | Performing | Address | City/State/Zipcode | Phone Number | | Organization | | | | + + + + + | [facility] | [address] | [place] [address] | [phone] | + + + + + POC Glucose (12/22/2019 10:38 AM PDT) + + + + + + | Component | Value | Ref Range | Performed | Pathologist | | | | | At | Signature | + + + + + + | Glucose, | 161 (H)Comment: Testing | 65 - 99 mg/dL | [facility] | | | POC | performed at [facility];[address] | | LABORATORY | | | | [address];[place] | | | | | | [address] | | | | + + + + + + + + | Specimen | + + | | + + + + + + + | Performing | Address | City/State/Zipcode | Phone Number | | Organization | | | | + + + + + | [facility] | [address] | [place] [address] | [phone] | + + + + + NATHALIA Mathew (12/22/2019 10:28 AM PDT) + + | Specimen | + + | | + + + + + | Impressions | Performed At | + + + | Fluoroscopic service for right hip fixation. This report is for | [facility] | | radiation documentation purposes only. Signed by: Denis, | | Eliezer Gonzalez M.D. Date/Time: 12/22/2019 [...] | | | POC | performed at [facility];[address] | g/dL | LABORATORY | | | | [address];[place], [place] | | | | | | [address] | | | | + + + + + + + + | Specimen | + + | | + + + + + + + | Performing | Address | City/State/Zipcode | Phone Number | | Organization | | | | + + + + + | [facility] | [address] | [place] [address] | [phone] | + + + + + POC ISTAT, CG8, Arterial (12/22/2019 9:23 AM PDT) + + + + + + | Component | Value | Ref Range | Performed | Pathologist | | | | | At | Signature | + + + + + + | pH, | 7.314 (L) | 7.350 - 7.450 | [place] | | | Arterial, | | | [...] | | | POC | performed at [facility];[address] | g/dL | LABORATORY | | | | [address];[place], [place] | | | | | | [address] | | | | + + + + + + + + | Specimen | + + | | + + + + + + + | Performing | Address | City/State/Zipcode | Phone Number | | Organization | | | | + + + + + | [facility] | [address] | [place] [address] | [phone] | + + + + + POC [...] | | | POC | performed at [facility];[address] | g/dL | LABORATORY | | | | [address];[place], [place] | | | | | | [address] | | | | + + + + + + + + | Specimen | + + | | + + + + + + + | Performing | Address | City/State/Zipcode | Phone Number | | Organization | | | | + + + + + | [facility] | [address] | [place] [address] | [phone] | + + + + + POC [...] | | | POC | performed at [facility];[address] | g/dL | LABORATORY | | | | [address];[place], [place] | | | | | | [address] | | | | + + + + + + + + | Specimen | + + | | + + + + + + + | Performing | Address | City/State/Zipcode | Phone Number | | Organization | | | | + + + + + | [facility] | [address] | [place] [address] | [phone] | + + + + + Type [...] + + + | BB BAND | [id number] | | [facility] | | | | | | LABORATORY | | + + + + + + | UNIT # | [id number] | | [facility] | | | | [...] | | | RESULT | performed at [facility];[address] | | LABORATORY | | | | [address];[place] | | | | | | [address] | | | | + + + + + + | UNIT # | [id number] | | [facility] | | | | [...] | + + + + + | [facility] | [address] | [place] [address] | [phone] | + + + + + POC Glucose (12/22/2019 5:35 AM PDT) + + + + + + | Component | Value | Ref Range | Performed | Pathologist | | | | | At | Signature | + + + + + + | Glucose, | 155 (H)Comment: Testing | 65 - 99 mg/dL | [facility] | | | POC | performed at [facility];[address] | | LABORATORY | | | | [address];[place] | | | | | | [address] | | | | + + + + + + + + | Specimen | + + | | + + + + + + + | Performing | Address | City/State/Zipcode | Phone Number | | Organization | | | | + + + + + | [facility] | [address] | [place] [address] | [phone] | + + + + + Shine ORTEGA (12/22/2019 5:26 AM PDT) + + + + + + | Component | Value | Ref Range | Performed | Pathologist | | | | | At | Signature | + + + + + + | INR | 1.2Comment: REFERENCE | | [facility] | | | | RANGE:0.9 - 1.2 [...] | | | | | performed at [facility];[address] | | | | | | [address];[place] | | | | | | [address] | | | | + + + + + + + + | Specimen | + + | Blood | + + + + + + + | Performing | Address | City/State/Zipcode | Phone Number | | Organization | | | | + + + + + | [facility] | [address] [facility] | [place] [address] | [phone] | + + + + + CBC [...] | | | Absolute | performed at [facility], [address] | [address] | LABORATORY | | | | [address], | | | | | | [place] [address] | | | | + + + + + + + + | Specimen | + + | Blood | + + + + + + + | Performing | Address | City/State/Zipcode | Phone Number | | Organization | | | | + + + + + | [facility] | [address] | [place] [address] | [phone] | + + + + + Magnesium (12/22/2019 5:26 AM PDT) + + + + + + | Component | Value | Ref Range | Performed | Pathologist | | | | | At | Signature | + + + + + + | Magnesium | 2.6 (H)Comment: Testing | 1.7 - 2.4 mg/dL | [facility] | | | | performed at [facility], [address] | | LABORATORY | | | | [address], | | | | | | [place] [address] | | | | + + + + + + + + | Specimen | + + | Blood | + + + + + + + | Performing | Address | City/State/Zipcode | Phone Number | | Organization | | | | + + + + + | [facility] | [address] | [place] [address] | [phone] | + + + + + Basic [...] | | | | | performed at [facility], [address] | | | | | | [facility], | | | | | | [place] [address] | | | | + + + + + + + + | Specimen | + + | Blood | + + + + + + + | Performing | Address | City/State/Zipcode | Phone Number | | Organization | | | | + + + + + | [facility] | [address] | [place] [address] | [phone] | + + + + + POC [...] | | | POC | performed at [facility];[address] | | LABORATORY | | | | [address];[place], [place] | | | | | | [address] | | | | + + + + + + + + | Specimen | + + | | + + + + + + + | Performing | Address | City/State/Zipcode | Phone Number | | Organization | | | | + + + + + | [facility] | [address] | [place] [address] | [phone] | + + + + + POC [...] | | | POC | performed at [facility];[address] | | LABORATORY | | | | [address];[place] | | | | | | [address] | | | | + + + + + + + + | Specimen | + + | | + + + + + + + | Performing | Address | City/State/Zipcode | Phone Number | | Organization | | | | + + + + + | [facility] | [address] | [place] [address] | [phone] | + + + + + documented [...] PDT | | | | | 1500, Abhijit carmona. Use with | | | | | [...] Starting 12/28/19 | | | at 1231, Abhijit carmona., | | + +---+ | | | [...] | | | | | | Starting [facility] 12/26/19 at 1637 | | | [...] | | | | | | | 2487-4933 Use NIGHT DOSE for | | | | | | | doses scheduled: HS, | | | | | | | Nighttime [id number] If the BG is | | | [...]
--- OUTSIDE RECORDS SUMMARY | ~2020-03-05 | XMS | Encounter Summary ---
Demographics + + + | Address | [address] | | | [place] [address] | + + + | Home Phone [...] [place] | | | | | [address] | | + + + + + | Deanna Lawson | ECON | Unknown | | + + + + + Care Team Providers + +------+ + | Care Vice President Financial Name | Role | Phone | + +------+ + | Barabra Gilman MD | PCP | | + +------+ + Encounter Details +--------+---------+ + + + | Date | Type | Department | Care Team | Description | +--------+---------+ + + + | 01/29/ | Office | [facility] | Isiah Jade MD | ATN (acute tubular | | 2020 | Visit | [facility]PHROLOGY [place] | [address] [place] | necrosis) (HCC) | | | | [address] [place] | [address] [place], [place] | (Primary Dx); CKD | | | | [address] [place], [place] | [address] | (chronic kidney | | | | [address] | | disease) stage 3, | | | | [phone] | | GFR 30-59 ml/min | | | | | | ([facility]); Hypertension | | | | | | [...] insulin | | | | | | ([facility]); 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 | | | | | | failure, stage 3 | | | | | | (moderate) ([facility]); | | | | | | Secondary | | | | | | hyperparathyroidism | | | | | | ([facility]); Bilateral leg | | | | | | edema; Electrolyte | | | | | | imbalance risk | +--------+---------+ + + + Social History [...] + + + | Blood Pressure | 133/57 | 01/30/2020 1:30 PM | | | | | PDT | | + + + + + | Pulse | 61 | 01/30/2020 1:30 PM | | | | | PDT | | + + + + + | Temperature | - | - | | + + + + + | Respiratory Rate | - | - | | + + + + + | Oxygen Saturation | 98% | 01/30/2020 1:30 PM | | | | | PDT | | + + + + + | Inhaled Oxygen | - | - | | | Concentration | | | | + + + + + | Weight | 66.4 kg (146 lb 6.4 | 01/30/2020 1:30 PM | | | | oz) | PDT | | + + + + + | Height | 165.1 cm (5' 5") | 01/30/2020 1:30 PM | | | | | PDT | | + + + + + | Body Mass Index | 24.36 | 01/30/2020 1:30 PM | | | | | PDT | | + + + + + documented in this encounter Patient Instructions Patient Instructions Isiah Jade MD - 01/30/2020 1:20 PM PDTDiscussions/Recommendations : I discussed today with Mr. Guzmán the meaning of his CKD and the interaction of that with his HTN. I stressed the importance of keeping his BP controlled and avoiding getting dehydr ated if we are to have a chance at helping preserve his renal function. He showed good under standing. He will strictly abide by a low sodium diet and will avoid all kinds of NSAIDs for analgesi a. Also: I will not change any of his vasoactive meds today. I kept him on the Torsemide 40 mg twice a day. I asked him to reduce his total fluid daily intake to less than 1.2 L for now. I asked him to elevate his legs for 1 hour once or twice a day to help with his leg talisha a. He knows that he still needs to be active and ambulatory carefully as possible. I sent him for a repeat BMP next week. He will see the Urology team soon for his retention. He will F/U with your office regularly. He will have a CBC, RFP, Uric acid, Mag, iPTH, UTPCR before he comes back in 2 months.El ectronically signed by Isiah Jade MD at 01/30/2020 2:18 PM PDT documented in this encounter Progress Notes Isiah Jade MD - 01/30/2020 1:20 PM PDT Patient Active Problem List Diagnosis Date Noted POA ATN (acute tubular necrosis) 12/27/2019 Unknown Priority: High Permanent atrial fibrillation 04/24/2014 Unknown Priority: High 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 Unknown Priority: High HLD (hyperlipidemia) 06/04/2015 Unknown Priority: Medium Hypertension goal BP (blood pressure) < 140/80 04/24/2014 Unknown Priority: Medium Bleeding duodenal ulcer 12/29/2019 Unknown Acute GI bleeding 12/28/2019 Unknown Weakness generalized 12/26/2019 Unknown Difficulty in walking 12/26/2019 Unknown Bacterial pneumonia 12/26/2019 Unknown Acute post-hemorrhagic anemia 12/26/2019 Unknown Closed comminuted intertrochanteric fracture of right femur with routine healing 2019 Unknown 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) 12/21/2019 Unknown Acute renal failure superimposed on stage 3 chronic kidney disease 12/21/2019 Unknown On apixaban therapy 06/27/2019 Unknown Cholelithiasis with acute cholecystitis without obstruction 06/27/2019 Unknown Phimosis 06/27/2019 Unknown History of stroke 03/25/2019 Unknown Moderate to severe pulmonary hypertension 09/13/2018 Unknown Moderate tricuspid regurgitation 09/13/2018 Unknown Dilated aortic root 09/13/2018 Unknown Chronic kidney disease, stage IV (severe) 09/13/2018 Unknown Snoring 09/03/2017 Unknown Chronic diastolic heart failure 07/25/2017 Unknown Anemia 07/25/2017 Unknown Type 2 diabetes mellitus with kidney complication, 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 Gilman: I saw your patient Mr. Guzmán in hospital F/U today. As you are familiar with his case, I will not state his past history in detail. Briefly, he is a 89 y.o. male patient with past history as delineated above. He is here to F/U on his CKD and associated complications. 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 *hospitalized early 12/2019 with a had a ground-level mechanical fall ending up with a righ t femur fracture, s/p hip nailing, had ATN, possible pneumonia, GI bleed, PRBC transfusion, urinary retention needing a Lee. The patient has history of hypertension for many years, Diabetes Mellitus for many years. H is BG and BP control has been reportedly adequate. he denies any history of prolonged exposu re to NSAIDs or recent exposure to known nephrotoxins. he denies any recurrent nephrolithias is or pyelonephritis. He tells me that he's had no history of urinary retention, gross hemat uria or dysuria. He has mild incontinence symptoms. No symptoms of UTI. No history of frequ ency, nocturia, weak urinary stream, hesitancy, intermittence, incomplete emptying or urgenc y. He has 1-2 times nightly nocturia. No history of passing kidney stones. He has no foamy u rine either. His baseline Creatinine is TBD. There is no family history of renal genetic dis eases such as PKD. He says that he feels 'good ' today. He reports he currently has bronchitis, this is chroni c for him, chronic BUTTS, uses straight cane. Last acute gout attack was in around early 2017. he denies any blurred vision tinnitus, headache, fever, chills, or cough. No nausea, vomiti ng, abdominal pain, diarrhea, melena, or hematochezia. No chest pain, palpitation, dizziness , loss of consciousness, orthopnea, paroxysmal nocturnal dyspnea, or leg edema. The following portions of the patient's history were reviewed and updated as appropriate: a llergies, current medications, past medical history, past social history, past surgical hist ory, family history and problem list. I also reviewed with him the records from his most recent hospitalization, including the leslie pierce summary. As in History of Present Illness & in Assessment. All the pertinent systems were reviewed a nd were otherwise negative. Current Outpatient Medications: albuterol 90 mcg/puff inhaler, Inhale 4 puffs into the lungs every 6 hours for 30 days ., Disp: 1 Inhaler, Rfl: 1 allopurinol (ZYLOPRIM) 100 mg tablet, Take 1 tablet by mouth daily., Disp: 90 tablet, Rfl: 3 ascorbic acid (VITAMIN C) 500 MG tablet, Take 500 mg by mouth daily. (Patient taking d ifferently: Take 500 mg by mouth Daily. Takes tablets M,W,F,Sun, only takes 4x per week), Di sp: , Rfl: budesonide-formoterol (SYMBICORT) 160-4.5 mcg/puff inhaler, Inhale 2 puffs into the tracie ngs Twice Daily for 30 days., Disp: 6 g, Rfl: 0 carvedilol (COREG) 3.125 mg tablet, Take 1 tablet by mouth 2 times daily (with breakfa st & dinner) for 30 days., Disp: 60 tablet, Rfl: 0 ferrous sulfate 325 mg tablet, Take 65 mg of iron by mouth every other day., Disp: , R fl: insulin lispro (HUMALOG) 100 units/mL injection (vial), Inject 0-12 Units under the sk in 3 times daily (with meals)., Disp: 10 mL, Rfl: 0 meclizine (ANTIVERT) 25 mg tablet, Take 1 tablet by mouth 3 (three) times daily as nee ded. (Patient taking differently: Take 25 mg by mouth 3 times daily as needed (takes rarely) .), Disp: 90 tablet, Rfl: 0 pantoprazole (PROTONIX) 40 mg tablet, Take 1 tablet by mouth 2 times daily (before norah ls) for 90 days., Disp: 60 tablet, Rfl: 3 pravastatin (PRAVACHOL) 80 MG tablet, Take 40 mg by mouth nightly. (Patient taking dif ferently: Take 40 mg by mouth nightly. Take one half tablet by mouth nightly), Disp: , Rfl: sucralfate (CARAFATE) 1 g tablet, Take 1 tablet by mouth 4 times daily (before meals a nd nightly) for 30 days., Disp: 120 tablet, Rfl: 0 terazosin (HYTRIN) 10 MG capsule, Take 10 mg by mouth daily with dinner., Disp: , Rfl: Physical Exam: BP 133/57 | Pulse 61 | Ht 1.651 m (5' 5") | Wt 66.4 kg (146 lb 6.4 oz) | SpO2 98% | BM I 24.36 kg/m General appearance: Pleasant, elderly male, not in acute distress. Uses straight cane. Neck: Supple without tracheal deviation or jugular venous distension. Head and ENT: Head is atraumatic. The oropharynx is without erythema or thrush. Eyes: Anicteric. The extraocular muscle movements are normal. Lungs: Clear to auscultation bilaterally. There are no wheezes. Heart: Regular rate and rhythm without any rub, gallop. Grade 3 systolic murmur, best at th e apex. Abdominal exam: Soft and nontender with normal bowel sounds. Musculoskeletal: No costovertebral angle tenderness bilaterally. Extremities: Warm to touch with 3+ pitting right, 2+ left leg edema. +thighs edema too. Th ere is no cyanosis. Lee bag tied to right leg. Skin: There are no rashes, petechiae, or ecchymosis. Neurological: Awake, alert, and oriented to time, place, and person. Normal gross motor pow er. There is no asterixis. Psychiatric: The patient s behavior is normal. Judgment and thought content are normal. Lab Results Component Value Date HGB 10 (A) 01/27/2020 HGB 8.9 (L) 01/01/2020 HCT 26.5 (L) 01/01/2020 HCT 21 (LL) 12/22/2019 NA 137 01/27/2020 K 4.0 01/27/2020 CL 101 01/27/2020 CO2 23 01/27/2020 BUN 72 (A) 01/27/2020 CREA 2.06 (A) 01/27/2020 CALCIUM 8.7 01/27/2020 CALCIUM 8.6 01/01/2020 ALBUMIN 3.8 01/27/2020 PHOS 5.2 (H) 12/26/2019 EGFR 31.0 (A) 01/27/2020 PTH 72.57 (A) 04/01/2019 LABPROT 6.6 01/27/2020 LABPROT 340.6 (A) 04/01/2019 Old Lab Results: Component Value Date BUN 40 (A) 01/07/2019 CREATININE 1.66 (A) 01/07/2019 EGFR 39 (A) 01/07/2019 NA 137 01/07/2019 K 4.3 01/07/2019 CL 100 01/07/2019 CO2 22 01/07/2019 CA 9.0 01/07/2019 PHOS 4.0 07/26/2017 MG 2.3 07/29/2017 ALB 2.8 (L) 07/28/2017 HGB 10.8 (A) 01/07/2019 URICACID 11.3 (A) 01/07/2019 WBC 5.9 01/07/2019 HCT 31.0 (A) 01/07/2019 FERRITIN 23 07/27/2017 LABIRON 8 (L) 07/27/2017 LABPROT 528.6 (A) 01/07/2019 Assessment: Mr. Guzmán is a 89 y.o. male patient with stage III CKD on a background of HTN. 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 RENAL FUNCTION: Stability to be determined BLOOD PRESSURE: reports it controlled BLOOD SUGAR: reports it controlled ELECTROLYTES: Acceptable ANEMIA: Mild VITAMIN D: To be checked thru your office PARATHYROID HORMONE: minimally up URIC ACID: Up to be rechecked PROTEINURIA: Mild URINALYSIS: No UTI or hematuria VOLUME STATUS: Euvolumic. Discussions/Recommendations: I discussed today with Mr. Guzmán the meaning of his CKD and the interaction of that with his HTN. I stressed the importance of keeping his BP controlled and avoiding getting dehydr ated if we are to have a chance at helping preserve his renal function. He showed good under standing. He will strictly abide by a low sodium diet and will avoid all kinds of NSAIDs for analgesi a. Also: I will not change any of his vasoactive meds today. I kept him on the Torsemide 40 mg twice a day. I asked him to reduce his total fluid daily intake to less than 1.2 L for now. I asked him to elevate his legs for 1 hour once or twice a day to help with his leg talisha a. He knows that he still needs to be active and ambulatory carefully as possible. I sent him for a repeat BMP next week. He will see the Urology team soon for his retention. He will F/U with your office regularly. He will have a CBC, RFP, Uric acid, Mag, iPTH, UTPCR before he comes back in [address] Gilman for the opportunity to see this patient in F/U today. Please do not hesitate to call me at any time with questions or concerns. Truly yours, Isiah Jade MD documented in this enco unter Plan of Treatment +--------+---------+ + + + | Date | Type | Specialty | Care Team | Description | +--------+---------+ + + + | 03/17/ | Office | Orthopedic Surgery | Melquiades Baez | | 2019 | Visit | | [address] | | | | | | [facility], | | | | | | [place] [address] | | | | | | [phone] | | | | | | | | +--------+---------+ + + + | 04/21/ | Office | Nephrology | Isiah Jade MD | | 2019 | Visit | | [address] [facility] | | | | | | [address] [place] | | | | | | [address] | | | | | | | | +--------+---------+ + + + | 05/07/ | Office | Cardiology | Charlee Oswald | | | 2019 | Visit | | [address] | | | | | | [address] | | | | | | [place] [address] | | | | | | [phone] | | | | | | | | +--------+---------+ + + + documented as of this encounter Visit Diagnoses + + | Diagnosis | + + | ATN (acute tubular necrosis) (HCC) - Primary Acute kidney failure with lesion of | | tubular necrosis | + + | CKD (chronic kidney disease) stage 3, GFR 30-59 ml/min (HCC) Chronic kidney disease, | | Stage III (moderate) | + + | Hypertension goal BP (blood pressure) < 140/80 Unspecified essential hypertension | + + | Type 2 diabetes mellitus with diabetic nephropathy, 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) | + + | Anemia of chronic kidney failure, stage 3 (moderate) ([facility]) | + + | Secondary hyperparathyroidism (HCC) Secondary hyperparathyroidism (of renal origin) | + + | Bilateral leg edema Edema | + + | Electrolyte imbalance risk Other specified conditions influencing health status | + + documented in this encounter
--- OUTSIDE RECORDS SUMMARY | ~2020-03-05 | XMS | Encounter Summary ---
Demographics + + + | Address | [address] | | | [place] [address] | + + + | Home Phone [...] [place] | | | | | [address] | | + + + + + | Deanna Lawson | ECON | Unknown | | + + + + + Care Team Providers + +------+ + | Care Warp Yarn Sorter Name | Role | Phone | + +------+ + PCP | Unavailable | + +------+ + Encounter Details +--------+ + + + + | Date | Type | Department | Care Team | Description | +--------+ + + + + | 02/04/ | Hospital | [facility] | Conversion | Presence of cardiac | | 2019 | Encounter | CENTER [facility] OP | Transaction, | pacemaker; Permanent | | | | [address] | Provider Unknown | atrial fibrillation | | | | [place], [place] | [phone] | (HCC); Chronic | | | | [address]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 | | | | [phone] | Enoch Marks MD | failure ([facility]); | | | | | [address] | Pacemaker at end of | | | | | [place], [place] | battery life | | | | | [address] | | | | | | | [...] Surgery Author Type: Registered Nurse Filed: 02/04/19 8209 Date of Service: 02/04/19 1430 Status: Signed Kindergarten Prep Teacher: Sendy Smith RN (Registered Nurse) Patient discharged [...] H&P by Enoch Marks MD at 02/03/19 2597 Author: Enoch Marks MD Service: Specialist Author Type: Physician Filed: 02/04/19 1252 Date of Service: 02/03/191735 Status: Addendum Kindergarten Prep Teacher: Enoch Marks MD (Physician) Related Notes: Original Note by Enoch Marks MD (Physician) filed at 02/04/19 1228 [facility]: Electrophysiology Update to Pre-Operative History [...] Guzmán : 1930: AGE: 88 y.o. Phone- [phone] (home) PRIMARY CARE: Barbara Gilman Requesting Physician: Barbara Gilman MD [address] [place], [place] [id number] SUMMARY OF EP RECOMMENDATIONS Patient Active Problem [...] mild concentric LVH. He has a single-chamber [employer] ventricular pacemaker mayelin t is nearing elective replacement indicator status. He has been pacing the right ventricle 9 9% of the time. Anticoagulated with apixaban. He has only been taking 2.5 mg twice per day, because of renal dysfunction and age. day. The chads 2 vascular score is 4. 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 He has a [employer] Altrua single-chamber RV pacemaker that was [...] (two) times daily., Di sp: , Rfl: Evujxpe-Ccbeqsnhx-Diwoyzz D 600-40-500 MG-MG-UNIT TB24, Take 1,200 mg [...] | | | | | [place], | | | | | | [place] [address] | | | | | | [phone] | | | | | | | | +--------+---------+ + + + | 04/21/ | Office | Nephrology | Isiah Jade MD | | 2019 | Visit | | [address] [facility] | | | | | | [address] [place] | | | | | | [address] | | | | | | | | +--------+---------+ + + + | 05/07/ | Office | Cardiology | Darek Charlee | | | 2019 | Visit | | [address] | | | | | | [address] | | | | | | [place] [address] | | | | | | [phone] | | | | | | | [...] will be seen in one week in [place] | | | by ENEDINA Bo. Read [...] | | indicator status. It is a [employer] pacemaker that was | | | placed on 07/30/2010, because of heart block in the context of | | | permanent atrial fibrillation. He has felt poorly over the last few | | | weeks since the device went into an MIRIAN mode. The current lead is | | | a [employer] model 4136, serial #[id number]. The current | | | pacemaker is a [employer] model S601, serial #[id number]. He is | | | anticoagulated and [...] The lead was attached to a new [employer] | | | Accolade MRI compatible model L310, serial #[id number] pacemaker. That | | | device was [...] indicator | | status. It is a [employer] pacemaker that was placed on 07/30/2010, | | because of heart block in the context of permanent atrial fibrillation. He | | has felt poorly over the last few weeks since the device went into an MIRIAN | | mode. The current lead is a [employer] model 4136, serial | | #[id number]. The current pacemaker is a [employer] model S601, serial | | #[id number]. He is anticoagulated and the last dose [...] The lead was attached to a new [employer] | | Accolade MRI compatible model L310, serial #[id number] pacemaker. That device | | was placed [...] seen in one | | week in [place] by ENEDINA Bo. | | | | [...] | | | Fingerstick | performed at [facility] | | LAB | | | | [address];[place], [place] | | | | | | [address] | | | | + + + [...] | | | Basophils | performed at [facility];[address] | [address] | LAB | | | | [address];[place], [place] | | | | | | [address] | | | | + + + [...] | | | | | performed at [facility];[address] | | | | | | [address];[place], [place] | | | | | | [address] | | | | + + + [...]
--- OUTSIDE RECORDS SUMMARY | ~2020-03-05 | XMS | Encounter Summary ---
Demographics + + + | Address | [address] | | | [place] [address] | + + + | Home Phone | | + + + | Preferred Language | Unknown | + + + | Marital Status | | + + + | Scientologist Affiliation | [id number] | + + + [...] [place] | | | | | [address] | | + + + + + | Deanna Lawson | ECON | Unknown | | + + + + + Care Team Providers + +------+ + | Care Machine Operator Transplanter Name | Role | Phone | + [...] + + | 11/10/ | Procedure | [facility] | | Cardiac pacemaker in | | 2019 | visit | CARDIOLOGY OP[place] | | situ (Primary Dx) | | | | [address] | | | | | | [place] | | | | | | [address] | | | | | | [phone] | | | +--------+ + + + [...] documented as of this encounter Procedure Notes Mercedez Bains, Mascara Molder - 11/11/2019 8:00 AM PDTAssociated Order(s): DEVICE INT ERROGATION- REMOTEProcedure(s): DEVICE INTERROGATION- REMOTEPre-Procedure Diagnose(s): Prese nce of cardiac pacemaker PACEMAKER REMOTE INTERROGATION REPORT Name: Andres Guzmán PCP: Barbara Gilman MD : 1930 Primary cardiology provider: Charlee Oswald Primary electrophysiology provider: Enoch Thompson Device shoddy mill worker: Powered Now Device type: Single chamber (Ventricular) Battery Longevity: OK, 9 years. RV Pacin% INTERROGATION RESULTS: Please see the full interrogation report attached Known history of atrial flutter or atrial fibrillation: Yes Current antithrombotic therapy including: apixaban [Eliquis] Mode switches: No atrial lead present. Ventricular high rate episodes: None. Lead function: Lead impedance and threshold value trends have been reviewed and are accepta ble based on most recent evaluation CHF: Congestive heart failure parameters and trends have been reviewed and are stable Follow up: The next scheduled interrogation will be in 3 months via remote transmission. Additional comments: None. IMPRESSION: 1. Normal pacemaker function. 2. No atrial lead. 3. No ventricular high rate episodes were noted. Testing reviewed by: Mercedez Bains, [facility] documented in t his encounter Plan of Treatment +--------+---------+ + + + | Date | Type | Specialty | Care Team | Description | +--------+---------+ + + + | 03/17/ | Office | Orthopedic Surgery | Melquiades Baez | | 2019 | Visit | | [address] | | | | | | [place], | | | | | | [place] [address] | | | | | | [phone] | | | | | | | | +--------+---------+ + + + | 04/21/ | Office | Nephrology | Isiah Jade MD | | | 2019 | Visit | | [address] | | | | | | [address] [place] | | | | | | [address] | | | | | | | | +--------+---------+ + + + | 05/07/ | Office | Cardiology | Charlee Oswald | | | 2019 | Visit | | [address] | | | | | | [address] | | | | | | [place] [address] | | | | | | [phone] | | | | | | | [...] this encounter Results Device Interrogation - Remote (11/11/2019 8:00 AM PDT) + + + | Narrative | Performed At | + + + | Mercedez Jensen | [facility] | | Herson, Mascara Molder 11/12/2019 4:50 PMPACEMTKER REMOTE | | | INTERROGATION REPORT Name: Andres Guzmán PCP: Barbara Elkins | | | MD Mukul : 1930MRN: [id number] Primary cardiology | | | provider: Charlee Oswald Primary electrophysiology provider: Enoch | | | Jay Device shoddy mill worker: Powered Now Device type: Single | | | chamber [...] | | | |Testing reviewed by: Mercedez Bains [facility] | | | | | [...]
--- OUTSIDE RECORDS SUMMARY | ~2020-03-05 | XMS | Encounter Summary ---
Demographics + + + | Address | [address] | | | [place] [address] | + + + | Home Phone [...] [place] | | | | | [address] | | + + + + + | Deanna Lawson | ECON | Unknown | | + + + + + Care Team Providers + +------+ + | Care Television Installer Helper Name | Role | Phone | + +------+ + | Barbara Gilman MD | PCP | | + +------+ + Encounter Details +--------+ + + + + | Date | Type | Department | Care Team | Description | +--------+ + + + + | 04/01/ | Orders Only | [facility] | Tristan Rajput, | | | 2018 | | [facility] | PROCESS INSPECTOR [address] | | | | | [address] [place] | [address] | | | | | [address] [facility] [place] | [place] | | | | | [address] | [address] | | | | | [phone] | [phone] | | | | | | | [...] | | | [address] [facility] | | | | | | [place] [address] | | | | | | [phone] | | | | | | | | +--------+---------+ + + + | 04/21/ | Office | Nephrology | Isiah Jade MD | | | 2019 | Visit | | [address] | | | | | | [address] [place] | | | | | | [address] | | | | | | | | +--------+---------+ + + + | 05/07/ | Office | Cardiology | Charlee Oswald | | | 2019 | Visit | | [address] | | | | | | [address] | | | | | | [place] [address] | | | | | | [phone] | | | | | | | [...] + + + + + + | eGFR if not | | | EXTERNAL | | | | | | LAB | | | BAHRAINI | | | | | + + [...]
--- OUTSIDE RECORDS SUMMARY | ~2020-03-05 | XMS | Encounter Summary ---
Demographics + + + | Address | [address] | | | [place] [address] | + + + | Home Phone | | + + + | Preferred Language | Unknown | + + + | Marital Status | | + + + | Confucianism Affiliation | 1001 | + + + | Race | Unknown | + + + | Ethnic Group | Unknown | + + + Author + + + | Author | [facility] | | | and [place] | + + + | Organization | [facility] | | | [...] [place] | | | | | [address] | | + + + + + | Deanna Lawson | ECON | Unknown | | + + + + + Care Team Providers + +------+ + | Care Tailer In Name | Role | Phone | + [...] + + | 01/05/ | Documentati | [facility] | Nelson, | Other (Dr. Jade | | 2020 | on | NEPHROLOGY JESSI | Hallie [facility] | orders) | | | | [address] | Transactional Paralegal | | | | | [address] [place], [place] | | | | | | [address] | | | | | | [phone] | | | +--------+ + + + [...] | | | | | [address] [place], | | | | | | [place] [address] | | | | | | [phone] | | | | | | | | +--------+---------+ + + + | 04/21/ | Office | Nephrology | Isiah Jade MD | | | 2019 | Visit | | [address] [facility] | | | | | | [address] [place] | | | | | | [address] | | | | | | | | +--------+---------+ + + + | 05/07/ | Office | Cardiology | Charlee Oswald | | | 2020 | Visit | | [address] | | | | | | [place] | | | | | | [place] [address] | | | | | | [phone] | | | | | | | | +--------+---------+ + + + documented as of this encounter Visit Diagnoses Not on filedocumented in this encounter"
--- OUTSIDE RECORDS SUMMARY | ~2020-03-05 | XMS | Encounter Summary ---
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[facility], | | | | | with other | [place] | [place] | | | | | diabetic | [address] | [address] | | | | | kidney | Phone: | Phone: | | | | | complication | [phone] | [phone] | | | | | (HCC) | Fax: | Fax: | | | | | Chronic | [phone] | [phone] | | | | | diastolic | [...] + + | 02/17/ | Office | [facility] | Melquiades Baez | Right hip pain | | 2020 | Visit | ORTHO SPORTS | [address] | (Primary Dx); | | | | MEDICINE EDUARDO | [facility], | Orthopedic | | | | [address] [facility] | [place] [address] | aftercare; Closed | | | | [place], [place] | [phone] | fracture of right | | | | [address] | | hip with routine | | | | [phone] | | healing, subsequent | | | [...] Melquiades Baez, - 02/18/2020 1:10 PM PDT [facility] Orthopaedic and Sports Medicine Service: [...] Baez DO has created this entry using InHiro Voice Recognition software and [employer] macros. The entry has been reviewed and [...] | | | | | | [address] [facility], | | | | | | [place] [address] | | | | | | [phone] | | | | | | | | +--------+---------+ + + + | 04/21/ | Office | Nephrology | Isiah Jade MD | | | 2019 | Visit | | [address] | | | | | | [address] [place] | | | | | | [address] | | | | | | | | +--------+---------+ + + + | 05/07/ | Office | Cardiology | Charlee Oswald | | | 2019 | Visit | | [address] | | | | | | [address] | | | | | | [place] [address] | | | | | | [phone] | | | | | | | [...] created this | | | entry using EnhanCV Recognition software and [employer] | | | macros. The entry has been reviewed and there may still exist sound | | | alike word errors. | | | | | |Electronically signed by: Melquiades Baez DO 02/18/2020 1:54 PM PDT | | | | | | | | |Melquiades Baez DO has created this entry using EnhanCV | | |Recognition software and [employer] macros. The entry has been reviewed and [...] routine healing, subsequent encounter | + + documented in this encounter
--- OUTSIDE RECORDS SUMMARY | ~2020-03-05 | XMS | Encounter Summary ---
Demographics + + + | Address | [address] | | | [place] [address] | + + + | Home Phone | | + + + | Preferred Language | Unknown | + + + | Marital Status | | + + + | Adventist Affiliation | 1001 | + + + | Race | Unknown | + + + | Ethnic Group | Unknown | + + + Author + + + | Author | [facility] | | | and [place] | + + + | Organization | [facility] | | [...] [place] | | | | | [address] | | + + + + + | Deanna Lawson | ECON | Unknown | | + + + + + Care Team Providers + +------+ + | Care Interface Designer Name | Role | Phone | + [...] + + | 11/27/ | Virtual | 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 Exercises with [employer] and yard work, tolerates without chest pain or dyspnea. 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 Also worked for a [employer] company and then a [employer], but now just enjoys his leisure ti [...] or rhonchi noted, respirations unlab ored HEART: [facility] pacemaker site well Healed, stable to [...] : 02/04/2019: ( Dr. Thompson) : [employer] Accolade MRI com patible model L310, serial #[id number] pacemaker. The current lead is a [employer] model 4136, serial #[id number].Mode for pacing, VVIR with dual-sensor technology programmed on. T he lower rate will be 60 and upper rate 120beats per minute. The output will be 2 volts at 0.4 milliseconds with sensitivity of 2.5 millivolts. Pacing and sensing will be bipolar Previous Implant Pacemaker/ICD: 07/30/2010, SYDNEE Altrajinder S601, SN: [id number]. [facility]. Last pacer interrogation: 11/11/2019: Battery longevity 9 years. Pacer dependent. RV paci n%. No atrial lead, unable to monitor burden of atrial fibrillation. No ventricular high rate episodes. Lead impedance and threshold values acceptable. CHF parameters and ethan nds reviewed and stable. pacer interrogation: 05/07/2019: ( Dr. Thompson) : Normal device function was seen today for th is [employer] single-chamber device. The pacing threshold was [...] 15 mmHg. Normal pulmonic valve with mild MD. Sinus of Valsalva dilated about 4.26 cm, [...] change, except less pulmonar y hypertension Echo:07/26/2017: [facility]: EF >70 percent. LV normal in [...] PHS 75,TOTAL BILI 0.6,ALB 3.9 Labs: 02/18/2018: ([facility]). CBC: WBC 6.2, RBC 3.46, hemoglobin [...] 73. Thyroid: TSH 3.55 Labs: 08/23/2018: ( [facility]): CBC: WBC 6.6, RBC 2.92, [...] atrial fi b with a very high XHS7XN8- VASC score of 6. For his cardiac [...] with Dr. Dina Sanchez 01/22/2020 for primary rock dust sprayer, as well as seeing me. I also referred him for sleep apnea evaluation with Dr. Dorsey at the [facility] sleep disorders clinic due to his now [...] for continuity of care purp nettie [facility] Cardiology 11/28/2019 Ubaldo gregory in this encounter Plan of Treatment +--------+---------+ + + + | Date | Type | Specialty | Care Team | Description | +--------+---------+ + + + | 03/17/ | Office | Orthopedic Surgery | Melquiades Baez | | 2019 | Visit | | [address] | | | | | | [facility], | | | | | | [place] [address] | | | | | | [phone] | | | | | | | | +--------+---------+ + + + | 04/21/ | Office | Nephrology | Isiah Jade MD | | 2019 | Visit | | [address] [facility] | | | | | | [address] [place] | | | | | | [address] | | | | | | | | +--------+---------+ + + + | 05/07/ | Office | Cardiology | Charlee Oswald | | | 2019 | Visit | | [address] | | | | | | [address] | | | | | | [place] [address] | | | | | | [phone] | | | | | | | [...]
--- OUTSIDE RECORDS SUMMARY | ~2020-03-05 | XMS | Encounter Summary ---
Demographics + + + | Address | [address] | | | [place] [address] | + + + | Home Phone | | + + + | Preferred Language | Unknown | + + + | Marital Status | | + + + | Catholic Affiliation | 1001 | + + + | Race | Unknown | + + + | Ethnic Group | Unknown | + + + Author + + + | Author | [facility] | | | and [place] | + + + | Organization | [facility] | | [...] [place] | | | | | [address] | | + + + + + | Deanna Lawson | ECON | Unknown | | + + + + + Care Team Providers + +------+ + | Care Chemical Tester Name | Role | Phone | + [...] + + | 01/07/ | Telephone | [facility] | Melquiades Baez | Other (POST OP APPT | | 2019 | | ORTHO [facility]TS | [address] | ) | | | | MEDICINE [place]LE[place] | [facility] | | | | | [address] [facility] | [place] [address] | | | | | [place], [place] | [phone] | | | | | [address] | | | | | | [phone] | | | +--------+ + + + [...] Miscellaneous Notes Telephone Encounter - Gwen Lay, Retail Project Merchandiser - 01/08/2020 4:58 PM PDTCalled Idalia back and left a voicemail to give me a call back to discuss what Dr. Baez wants to to. Left office number. Electronically signed by Gwen Lay Retail Project Merchandiser at 4:58 PM PDTTelephone Encounter - Gwen Lay, Retail Project Merchandiser - 01/08/2020 4:39 PM PDTINCOMING CALL from cherelle Friedman at [facility]. She left voicemail in regards [...] with a call back daniel santos at [phone]. Idalia ended the call documented in this encounter Plan of Treatment +--------+---------+ + + + | Date | Type | Specialty | Care Team | Description | +--------+---------+ + + + | 03/17/ | Office | Orthopedic Surgery | Melquiades Baez | | | 2019 | Visit | | [address] | | | | | | [address] [place], | | | | | | [place] [address] | | | | | | [phone] | | | | | | | | +--------+---------+ + + + | 04/21/ | Office | Nephrology | Isiah Jade MD | | | 2019 | Visit | | [address] [facility] | | | | | | [address] [place] | | | | | | [address] | | | | | | | | +--------+---------+ + + + | 05/07/ | Office | Cardiology | Charlee Oswald | | | 2019 | Visit | | [address] | | | | | | [place] | | | | | | [place] [address] | | | | | | [phone] | | | | | | | | +--------+---------+ + + + documented as of this encounter Visit Diagnoses Not on filedocumented in this encounter"
--- OUTSIDE RECORDS SUMMARY | ~2020-03-05 | XMS | Encounter Summary ---
Demographics + + + | Address | [address] | | | [place] [address] | + + + | Home Phone [...] [place] | | | | | [address] | | + + + + + | Deanna Lawson | ECON | Unknown | | + + + + + Care Team Providers + +------+ + | Care Information Security Risk Analyst Name | Role | Phone | [...] + + | 01/30/ | Telephone | [facility] | Melquiades Baez | Other | | 2019 | | ORTHO [facility]TS | [address] | | | | | MEDICINE [place]LE[address] | [facility] | | | | | [facility] | [place] [address] | | | | | [place], [place] | [phone] | | | | | [address] | | | | | | [phone] | | | +--------+ + + + [...] | | | | | | [place] [address] | | | | | | [phone] | | | | | | | | +--------+---------+ + + + | 04/21/ | Office | Nephrology | Isiah Jade MD | | | 2019 | Visit | | [address] | | | | | | [address] [place] | | | | | | [address] | | | | | | | | +--------+---------+ + + + | 05/07/ | Office | Cardiology | Charlee Oswald | | | 2019 | Visit | | [address] | | | | | | [address] | | | | | | [place] [address] | | | | | | [phone] | | | | | | | | +--------+---------+ + + + documented as of this encounter Visit Diagnoses Not on filedocumented in this encounter"
--- OUTSIDE RECORDS SUMMARY | ~2020-03-05 | XMS | Encounter Summary ---
Demographics + + + | Address | [address] | | | [place] [address] | + + + | Home Phone [...] [place] | | | | | [address] | | + + + + + | Deanna Lawson | ECON | Unknown | | + + + + + Care Team Providers + +------+ + | Care Heel Emery Buffer Name | Role | Phone | + +------+ + | Barbara Gilman MD | PCP | | + +------+ + Encounter Details +--------+---------+ + + + | Date | Type | Department | Care Team | Description | +--------+---------+ + + + | 01/29/ | Office | [facility] | Isiah Jade MD | ATN (acute tubular | | 2020 | Visit | NEPHROLOGY [place] | [address] | necrosis) (HCC) | | | | [address] | [address] [place], [place] | (Primary Dx); CKD | | | | [address] [place], [place] | [address] | (chronic kidney | | | | [address] | | disease) stage 3, | | | | [phone] | | GFR 30-59 ml/min | | | | | | ([facility]); Hypertension | | | | | | [...] insulin | | | | | | ([facility]); 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 | | | | | | failure, stage 3 | | | | | | (moderate) ([facility]); | | | | | | Secondary | | | | | | hyperparathyroidism | | | | | | ([facility]); Bilateral leg | | | | | [...] [address] | | | | | | [facility], | | | | | | [place] [address] | | | | | | [phone] | | | | | | | | +--------+---------+ + + + | 04/21/ | Office | Nephrology | Isiah Jade MD | | 2019 | Visit | | [address] [facility] | | | | | | [address] [place] | | | | | | [address] | | | | | | | | +--------+---------+ + + + | 05/07/ | Office | Cardiology | Charlee Oswald | | | 2019 | Visit | | [address] | | | | | | [place] | | | | | | [place] [address] | | | | | | [phone] | | | | | | | [...] of chronic kidney failure, stage 3 (moderate) ([facility]) | + + | Secondary hyperparathyroidism (HCC) Secondary hyperparathyroidism (of renal origin) | + + | Bilateral leg edema Edema | + + | Electrolyte imbalance risk Other specified conditions influencing health status | + + documented in this encounter
--- OUTSIDE RECORDS SUMMARY | ~2020-03-05 | XMS | Encounter Summary ---
Demographics + + + | Address | [address] | | | [place] [address] | + + + | Home Phone [...] [place] | | | | | [address] | | + + + + + | Deanna Lawson | ECON | Unknown | | + + + + + Care Team Providers + +------+ + | Care Pneumatic Hoist Operator Name | Role | Phone | [...] + + | 02/26/ | Telephone | [facility] | Hakeem Perry, | Procedure | | 2019 | | GASTROENTEROLOGY | Joint Cutter Machine | | | | | [address] | | | | | | [place], [place] | | | | | | [address] | | | | | | [phone] | | | +--------+ + + + [...] | | | | | ALLIE [facility], | | | | | | [place] [address] | | | | | | [phone] | | | | | | | | +--------+---------+ + + + | 04/21/ | Office | Nephrology | Isiah Jade MD | | | 2019 | Visit | | [address] | | | | | | [address] [place] | | | | | | [address] | | | | | | | | +--------+---------+ + + + | 05/07/ | Office | Cardiology | Charlee Oswald | | | 2019 | Visit | | [address] | | | | | | [address] | | | | | | [place] [address] | | | | | | [phone] | | | | | | | | +--------+---------+ + + + documented as of this encounter Visit Diagnoses Not on filedocumented in this encounter
--- OUTSIDE RECORDS SUMMARY | ~2020-03-05 | XMS | Encounter Summary ---
Demographics + + + | Address | [address] | | | [place] [address] | + + + | Home Phone [...] [place] | | | | | [address] | | + + + + + | Deanna Lawson | ECON | Unknown | | + + + + + Care Team Providers + +------+ + | Care Warp Worker Name | Role | Phone | + +------+ + | Barbara Gilman MD | PCP | | + +------+ + Encounter Details +--------+ + + + + | Date | Type | Department | Care Team | Description | +--------+ + + + + | 01/20/ | Hospital | [facility] | Melquiades Baez | Right hip pain | | 2019 | Encounter | [address] | [address] | | | | | [address] | [address] [place], | | | | | [place], [place] | [place] [address] | | | | | [address] | [phone] | | | | | [phone] | | | +--------+ + + + [...] | | | | | [address] [place], | | | | | | [place] [address] | | | | | | [phone] | | | | | | | | +--------+---------+ + + + | 04/21/ | Office | Nephrology | Isiah Jade MD | | | 2019 | Visit | | [address] [facility] | | | | | | [address] [place] [address] | | | | | | [address] | | | | | | | | +--------+---------+ + + + | 05/07/ | Office | Cardiology | Charlee Oswald | | | 2019 | Visit | | [address] | | | | | | [address] | | | | | | [place] [address] | | | | | | [phone] | | | | | | | [...] Baez DO has created this entry using [employer] | | | Recognition software and [employer] macros. The entry has been reviewed | | | and there may still exist sound alike word errors. | | | | | |Electronically signed by: Melquiades Baez DO 01/24/2020 1:05 PM | | | | | | | | |Melquiades Baez DO has created this entry using [employer] | | |Recognition software and [employer] macros. The entry has been reviewed and [...] pelvic region and thigh | + + documented in this encounter"
--- OUTSIDE RECORDS SUMMARY | ~2020-03-05 | XMS | Encounter Summary ---
Demographics + + + | Address | [address] | | | [place] [address] | + + + | Home Phone | | + + + | Preferred Language | Unknown | + + + | Marital Status | | + + + | Sabianist Affiliation | 1001 | + + + | Race | Unknown | + + + | Ethnic Group | Unknown | + + + Author + + + | Author | [facility] | | | and [place] | + + + | Organization | [facility] | | [...] [place] | | | | | [address] | | + + + + + | Deanna Lawson | ECON | Unknown | | + + + + + Care Team Providers + +------+ + | Care Edge Stainer Name | Role | Phone | + [...] + + | 02/05/ | Office | [facility] | Dina Sanchez DO | Permanent atrial | | 2020 | Visit | CARDIOLOGY [facility] | [address] | fibrillation (HCC) | | | | [address] | [address] Giancarlo VANDALIA MD | (Primary Dx); | | | | [address] | [address] | Hypertension goal BP | | | | [place] | | (blood pressure) < | | | | [address] | | 140/80; Chronic | | | | [phone]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 | | | [...] Sanchez DO - 02/06/2020 1:00 PM PDT [facility] Cardiology Consult Note Reason for Consultation: [...] who presents to the [facility] for the above past medical histories. He [...] was discharged, he had another hospitalization at [facility] for deconditioning and difficulty with ambulation. After [...] Symbicort, but never received these medications from [facility] after he was discharged. He reports that [...] GAMMA NAIL; Surgeon: Melquiades Baez DO; Location: [facility] MAIN OR OTHER SURGICAL HISTORY CATARACT EXTRACTION - bilateral OTHER SURGICAL HISTORY 2015 PACEMAKER INSERTION TONSILLECTOMY AND ADENOIDECTOMY UPPER GASTROINTESTINAL ENDOSCOPY N/A 12/29/2019 Procedure: EGD; Surgeon: Lamont Acuña MD; Location: [facility] MEDICAL PROCEDURE UNIT MEDICATIONS Home Medications Outpatient [...] file Gets together: Not on file Attends christianity service: Not on file Active member of [...] | | | | | | [place] [address] | | | | | | [phone] | | | | | | | | +--------+---------+ + + + | 04/21/ | Office | Nephrology | Isiah Jade MD | | | 2019 | Visit | | [address] | | | | | | [address] [place] | | | | | | [address] | | | | | | | | +--------+---------+ + + + | 05/07/ | Office | Cardiology | Charlee Oswald | | | 2019 | Visit | | [address] | | | | | | [place] | | | | | | [place] [address] | | | | | | [phone] | | | | | | | [...] Diseases of tricuspid valve | + + documented in this encounter
--- OUTSIDE RECORDS SUMMARY | ~2020-03-05 | XMS | Encounter Summary ---
Demographics + + + | Address | [address] | | | [place] [address] | + + + | Home Phone [...] [place] | | | | | [address] | | + + + + + | Deanna Lawson | ECON | Unknown | | + + + + + Care Team Providers + +------+ + | Care Community Outreach Manager Name | Role | Phone | [...] + + | 12/21/ | Anesthesia | [facility] | Ja Hill, | | | 2019 | Event | [facility] | FIRE EXTINGUISHER REPAIRER [address] | | | | | OPER[address] | [place] [address] | | | | | [address] | [phone] | | | | | [place] | | | | | | [address] | | | | | | [phone] | | | +--------+ + + + [...] +----+---+ + + | | 0 | [place] | | | | 9 | 43-degrees [...] Savana Bowden RN | | IV | [id number] catheter system; | | | | | [...] + + documented as of this encounter OR Notes Anesthesia Postprocedure Evaluation - Ja Hill CRNA - 12/22/2019 10:38 AM PDTFormatt ing of this note might be different from the original. ANESTHESIA POSTANESTHESIA EVALUATION Andres Guzmán 89 y.o. male 1930 [id number] Procedure(s) NAILING IM BETSY FEMUR - GAMMA NAIL (Right Hip) Cooperates? Yes Mental Status Performs simple tasks. Respiratory Satisfactory - Airway patent (self maintained). Cardiovascular Satisfactory - Blood pressure and heart rate acceptable Temperature Satisfactory Pain Satisfactory N/V Control Satisfactory Hydration Satisfactory - No signs of dehydration Adverse Events ADVERSE EVENTS: No adverse events Vitals Value Taken Time Temp 36.1 C (97 F) 12/22/2019 10:37 AM Pulse 60 12/22/2019 10:38 AM Resp 19 12/22/2019 10:38 AM BP 155/66 12/22/2019 10:37 AM Arterial Line BP 144/30 12/22/2019 10:38 AM Arterial Line BP 2 SpO2 100 % 12/22/2019 10:38 AM Vitals shown include unvalidated device data. Electronically signed by Ja Hill CRNA 12/22/2019 10:41 AM [facility]ronically signed by Ja Hill CRNA at 0 10:41 AM PDTAnesthesia Procedure Notes - Ja Hill CRNA - 12/22/2019 9:14 AM PDTAss ociated Order(s): AirwayAnesthesia Airway Placement 12/22/2019 9:01 AM Preprocedure check: patient identified, suction, airway equipment checked, patient reassess ment prior to induction, oxygen and airway assessed Mask ventilation: easy External maneuver: head lift Successful technique: Soto Laryngoscope blade size: 2 Airway grade: 1 (Full view of glottis) Other equipment: stylette Attempts: 1 Airway type: endotracheal Size: 8 Cuffed: cuffed Route, reference point: teeth/lips Tube depth: 22 cm Tube secured with: adhesive tape Trauma: none Tube placement verification: bilateral chest rise, equal bilateral breath sounds and carbon dioxide detection Performing provider: Ja Hill CRNA Authorizing provider: Ja Hill CRNA Please see intraoperative grid for any additional medication documentation. nesthesia Preproced ure Evaluation - Ja HillJAXSON - 12/21/2019 11:54 PM PDT ANESTHESIA PREANESTHESIA EVALUATION Andres Guzmán 89 y.o. male 1930 [id number] Procedure(s): NAILING IM BETSY FEMUR - GAMMA NAIL (Right Hip) Medical,anesthesia, drug, allergy histories reviewed, NPO status verified. ECG reviewed. Labs reviewed. (-) perioperative beta-gala/statin not given/taken, reason : last dose within 24 hours. Review of Systems / Med History Anesthesia History (+) previous surgery or anesthesia. Family Anesthesia History Family Anesthesia Negative except where noted below. Cardiovascular Exercise tolerance <4 METS (+) pacemaker (last interrogated in july) (+) hypertension (+) Dysrhythmias: (+) diastolic dysfunction congestive heart failure. (+) valvular problems/murmurs , TR (+) PVD: . Pulmonary (+) tobacco use.(+) ex-smoker: 1981. Gastrointestinal/Hepatic (+) hypercholesterolemia. Renal (+) acute renal failure. Endocrine (+) Diabetes: type 2, controlled (Hgb A1C < 6.5), without complications. Hematology/Other (+) anemia. Cancer Negative except where noted below. Obstetrics Negative except where noted below. Pediatric History Negative except where noted below. Neuromuscular Negative except where noted below. (+) CVA. Psychology Negative except where noted below. Additional Comments: Presents for nail of the hip, CHF, renal failure with K of 5.8, pacema ker, on elliquis. Plan is to give insulin to drop potassium, A-line, ETT, 2 PIV;s and type a nd screen. Physical Exam Airway MP II, TM >3 FB, Mouth opening >2 FB. Neck: limited ROM, extends >30 degrees. Jaw prot rusion normal. Facial hair present: No Dental CV Paced ECHO: EF 55% Severe pulm HTN Severe TR Pulm Clear to auscultation bilaterally. Neuro (+) weakness. Anesthesia Plan ASA: 3 Type: General. Induction: Intravenous. Potential problems: None anticipated. Monitors: Standard ASA monitors. Consent statement: Anesthetic plan, alternatives, risks and benefits discussed with patient. , discussed risks to teeth, drug reaction, heart problems, infection, nausea, pain, perioperative CV yudy nts, respiratory events, sore throat, stroke Blood transfusion concerns: None. Discussed plan with FIRE EXTINGUISHER REPAIRER. documented in this e ncounter Miscellaneous Notes Anesthesia Post-op Handoff - Ja Hill CRNA - 12/22/2019 10:38 AM PDTFormatting of th is note might be different from the original. ANESTHESIA HANDOFF NOTE Andres Guzmán 89 y.o. male 1930 [id number] NAILING IM BETSY FEMUR - GAMMA NAIL (Right Hip) HANDOFF NOTE Handoff Protocol Used: post-procedure handoff checklist completed The following were completed during the transfer of care: 1. Identification of patient 2. Identification of responsible practitioner (primary service) 3. Discussion of pertinent medical history 4. Discussion of the surgical/procedure course (procedure, reason for surgery, procedure pe rformed) 5. Intraoperative anesthetic management and issues/concerns 6. Expectations/plans for the early post-procedure period 7. Opportunity for questions and acknowledgement of understanding of report from receiving team Patient Location: Phase II Condition: responds to stimuli and awake Airway/O2: no supplemental O2 Multimodal analgesia: multimodal analgesia not used between 6 hours prior to anesthesia sta rt to PACU discharge Multimodal analgesia not used reason: No medical reason exists for NOT using multimodal lawanda lgesia. The significant anesthesia concerns and VS in Epic were reviewed with the receiving team. Ja Hill CRNA 12/22/2019 10:38 AM [facility]ron[facility] signed by Ja Hill CRNA at 0 10:38 AM PDTdocumented in this encounter Plan of Treatment +--------+---------+ + + + | Date | Type | Specialty | Care Team | Description | +--------+---------+ + + + | 03/17/ | Office | Orthopedic Surgery | Melquiades Baez | | | 2019 | Visit | | [address] | | | | | | [place], | | | | | | [place] [address] | | | | | | [phone] | | | | | | | | +--------+---------+ + + + | 04/21/ | Office | Nephrology | Isiah Jade MD | | | 2019 | Visit | | [address] | | | | | | [address] [place] | | | | | | [address] | | | | | | | | +--------+---------+ + + + | 05/07/ | Office | Cardiology | Charlee Oswald | | | 2019 | Visit | | [address] | | | | | | [address] | | | | | | [place] [address] | | | | | | [phone] | | | | | | | [...] 8:57 | | | | | Starting 12/22/19 at 0857, | | AM PDT | | | | | Anesthesia Intra-op | | | | | | + +-------+ +------+---+---+ +---+---+ | | | +---+---+ + +-------+ +-------+---+---+ | ePHEDrine in saline 5 mg/mL IV | Given | 12/22/19 | 10 mg | | | | syringe Intravenous, PRN, | | 20 9:12 | | | | | Starting 12/22/19 at 0912, | | AM PDT [...] | +---+---+ + +-------+ +--------+---+---+ | glycopyrrolate (ROBSYDNEEUL) | Given | 12/22/19 | 0.4 mg [...]
--- OUTSIDE RECORDS SUMMARY | ~2020-03-05 | XMS | Encounter Summary ---
Demographics + + + | Address | [address] | | | [place] [address] | + + + | Home Phone | | + + + | Preferred Language | Unknown | + + + | Marital Status | | + + + | Gnosticist Affiliation | 1001 | + + + | Race | Unknown | + + + | Ethnic Group | Unknown | + + + Author + + + | Author | [facility] [...] [place] | | | | | [address] | | + + + + + | Deanna Lawson | ECON | Unknown | | + + + + + Care Team Providers + +------+ + | Care Real Estate Agency Principal Name | Role | Phone | + +------+ + PCP | Unavailable | + +------+ + Encounter Details +--------+ + + + + | Date | Type | Department | Care Team | Description | +--------+ + + + + | 01/07/ | Orders Only | [facility] | Conversion | | | 2019 | | NEPRHOLOGY [place] | Transaction, | | | | | [address] | Provider Unknown | | | | | [address] [place], [place] | [phone] | | | | | [address] | | | | | | [phone] | | | +--------+ + + + [...] | | | | | | [place] [address] | | | | | | [phone] | | | | | | | | +--------+---------+ + + + | 04/21/ | Office | Nephrology | Isiah Jade MD | | | 2019 | Visit | | [address] [facility] | | | | | | [address] [place] [address] | | | | | | [address] | | | | | | | | +--------+---------+ + + + | 05/07/ | Office | Cardiology | Charlee Oswald | | | 2019 | Visit | | [address] | | | | | | [place] | | | | | | [place] [address] | | | | | | [phone] | | | | | | | | +--------+---------+ + + + documented as of this encounter Procedures + +--------+ + + + | Procedure Name | Priori | Date/Time | Associated Diagnosis | Comments | | | ty | | | | + +--------+ + + + | EXTERNAL LAB: [facility] | Routin | 01/07/2019 | | Results [...] + | Clarity, | Clear | | EXTERNAL | | | Urine | | | LAB | | + + + + + + | Specific | 1.013 | 1.005 - 1.030 | EXTERNAL | | | [place], | | | LAB | | | [...] + + + + | Non- | 3.31 (A) | 4.3 - 5.7 [...]
--- OUTSIDE RECORDS SUMMARY | ~2020-03-05 | XMS | Encounter Summary ---
Demographics + + + | Address | [address] | | | [place] [address] | + + + | Home Phone | | + + + | Preferred Language | Unknown | + + + | Marital Status | | + + + | Roman Catholic Affiliation | 1001 | + + [...] [place] | | | | | [address] | | + + + + + [...] | | Required | | atrial | GRADUATE ASSISTANT [address] | 19 | | | | | fibrillation | [place] | ANUFORT JONESLucius | | | | | (HCC) | [address] | [address] | | | | | Moderate to | [place], [place] | [address] | | | | | severe | [address] | [place] | | | | | pulmonary | Phone: | [phone] Phone: | | | | | hypertension | [phone] | [phone] | | | | | (HCC) Risk | Fax: | Fax: | | | | | factors for | [phone] | [phone] | | | | | obstructive | [...] + + | 10/27/ | Office | [facility] | Charlee Oswald | Permanent atrial | | 2020 | Visit | CARDIOLOGY ALYX | [address] | fibrillation (HCC) | | | | [address] | [address] [address] | (Primary Dx); | | | | [address] | [place] [address] | Cardiac pacemaker in | | | | [place] | [phone] | situ; Chronic | | | | [address]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 | | | | [phone] | | failure (HCC); | | | [...] Non fasting labs to be done at [facility] in 2 weeks Your Echo looks worse [...] have referred you to Dr. Dorsey at [facility] , call [phone] for an appoi ntment next week I will have you establish care with Dr. Sanchez who will be your manager casino See me back in 4 weeks documented [...] reported by him as being negative His CUC9WW4- VASC score is 6( HTN, age, stroke, [...] recreational or illicit drug use. Exercises with [employer] and yard work, tolerates without chest pain [...] : 02/04/2019: ( Dr. Thompson) : new [employer] Accolade MRI com patible model L310, serial #[id number] pacemaker. The current lead is a [employer] model 4136, serial #[id number].Mode for pacing, VVIR with dual-sensor technology programmed on. T he lower rate will be 60 and upper rate 120beats per minute. The output will be 2 volts at 0.4 milliseconds with sensitivity of 2.5 millivolts. Pacing and sensing will be bipolar Previous Implant Pacemaker/ICD: 07/30/2010, BS [employer] S601, SN: [id number]. [facility]. Addendum: Last [...] function was seen today for th is [employer] single-chamber device. The pacing threshold was [...] 15 mmHg. Normal pulmonic valve with mild [facility]. Sinus of Valsalva dilated about 4.26 cm, [...] change, except less pulmonar y hypertension Echo:07/26/2017: [facility]: EF >70 percent. LV normal [...] PHS 75,TOTAL BILI 0.6,ALB 3.9 Labs: 02/18/2018: ([facility]). CBC: WBC 6.2, RBC [...] 73. Thyroid: TSH 3.55 Labs: 08/23/2018: ( [facility]): CBC: WBC 6.6, RBC 2.92, hemoglobin [...] stopped, as he has a very high ZIS7GD4- VASC sco re of 6. For his [...] with Dr. Dorsey at the [facility] sleep disorders clinic due to his now severe pulmonary hypertension. He also has an appointment with his just Dr. Jade on March 09. He states his local PCP is Rosa Elena Goodrich, but I am unable to get her contact informat ion , so I will send copy of my note to Dr. Brito, and well as Dr. Gilamn . Addendum: 11/26/2019: I received documentation from [...] contain inadvertent rec ognition errors. Maximilian MCCONNELL [facility] 10/28/2019 Adoyvette gregory in this encounter Plan of Treatment +--------+---------+ + + + | Date | Type | Specialty | Care Team | Description | +--------+---------+ + + + | 03/17/ | Office | Orthopedic Surgery | Melquiades Baez | | 2019 | Visit | | [address] | | | | | | [place], | | | | | | [place] [address] | | | | | | [phone] | | | | | | | | +--------+---------+ + + + | 04/21/ | Office | Nephrology | Isiah Jade MD | | 2019 | Visit | | [address] [facility] | | | | | | [address] [place] [address] | | | | | | [address] | | | | | | | | +--------+---------+ + + + | 05/07/ Office | Cardiology | Charlee sOwald | | | 2019 | Visit | | [address] | | | | | | [address] | | | | | | [place] [address] | | | | | | [phone] | | | | | | | [...]
--- OUTSIDE RECORDS SUMMARY | ~2020-03-05 | XMS | Encounter Summary ---
Demographics + + + | Address | [address] | | | [place] [address] | + + + | Home Phone [...] [place] | | | | | [address] | | + + + + + | Deanna Lawson | ECON | Unknown | | + + + + + Care Team Providers + +------+ + | Care Business Analyst Sales Operations Name | Role | Phone | + [...] | | | | MEDICINE [place] | [facility] | | | | | [facility] | [place] [address] | | | | | [place], [place] | [phone] | | | | | [address] | | | | | | [phone] | | | +--------+ + + + [...] | | | | | | [place] [address] | | | | | | [phone] | | | | | | | | +--------+---------+ + + + | 04/21/ | Office | Nephrology | Isiah Jade MD | | | 2019 | Visit | | [address] | | | | | | [address] | | | | | | [address] | | | | | | | | +--------+---------+ + + + | 05/07/ | Office | Cardiology | Charlee Oswald | | | 2019 | Visit | | [address] | | | | | | [address] | | | | | | [place] [address] | | | | | | [phone] | | | | | | | | +--------+---------+ + + + documented as of this encounter Visit Diagnoses Not on filedocumented in this encounter"
--- OUTSIDE RECORDS SUMMARY | ~2020-03-05 | XMS | Encounter Summary ---
Demographics + + + | Address | [address] | | | [place] [address] | + + + | Home Phone [...] [place] | | | | | [address] | | + + + + + | Deanna Lawson | ECON | Unknown | | + + + + + Care Team Providers + +------+ + | Care Carbon Paper Coating Supervisor Name | Role | Phone | + +------+ + | Barbara Gilman MD | PCP | | + +------+ + Encounter Details +--------+ + + + + | Date | Type | Department | Care Team | Description | +--------+ + + + + | 08/08/ | Orders Only | [facility] | Charlee Oswald | | | 2017 | | CARDIOLOGY ALYX | [address] | | | | | [address] | [address] | | | | | [address] | [place] [address] | | | | | [place] | [phone] | | | | | [address] | | | | | | [phone] | | | +--------+ + + + [...] | | | | | [address] | | | | | | [place] [address] | | | | | | [phone] | | | | | | | | +--------+---------+ + + + | 04/21/ | Office | Nephrology | Isiah Jade MD | | | 2019 | Visit | | [address] [facility] | | | | | | [address] | | | | | | [address] | | | | | | | | +--------+---------+ + + + | 05/07/ | Office | Cardiology | Charlee Oswald | | | 2019 | Visit | | [address] | | | | | | [address] | | | | | | [place] [address] | | | | | | [phone] | | | | | | | [...]
--- OUTSIDE RECORDS SUMMARY | ~2020-03-05 | XMS | Encounter Summary ---
Demographics + + + | Address | [address] | | | [place] [address] | + + + | Home Phone | | + + + | Preferred Language | Unknown | + + + | Marital Status | | + + + | Yazidi Affiliation | 1001 | + + + | Race | Unknown | + + + | Ethnic Group | Unknown | + + + Author + + + | Author | [facility] | | | and [place] | + + + | Organization | [facility] | | | [...] [place] | | | | | [address] | | + + + + + | Deanna Lawsno | ECON | Unknown | | + + + + + Care Team Providers + +------+ + | Care Technology Sales Representative Name | Role | Phone | + [...] + + | 01/07/ | Telephone | [facility] | Melquiades Baez | Other (POST OP APPT | | 2019 | | ORTHO SPORTS | [address] | ) | | | | MEDICINE [place] | [facility] | | | | | [address] [facility] | [place] [address] | | | | | [place], [place] | [phone] | | | | | [address] | | | | | | [phone] | | | +--------+ + + + [...] Miscellaneous Notes Telephone Encounter - Gwen Lay, Dehydrogenation Operator Head - 01/08/2020 4:58 PM PDTCalled Idalia back and left a voicemail to give me a call back to discuss what Dr. Baez wants to to. Left office number. Electronically signed by Gwen Lay Dehydrogenation Operator Head at 4:58 PM PDTTelephone Encounter - Gwen Lay, Dehydrogenation Operator Head - 01/08/2020 4:39 PM PDTINCOMING CALL from cherelle Friedman at [facility]. She left voicemail in regards to [...] with a call back daniel santos at [phone]. Idalia ended the call documented in this encounter Plan of Treatment +--------+---------+ + + + | Date | Type | Specialty | Care Team | Description | +--------+---------+ + + + | 03/17/ | Office | Orthopedic Surgery | Melquiades Baez | | | 2019 | Visit | | [address] | | | | | | [place], | | | | | | [place] [address] | | | | | | [phone] | | | | | | | | +--------+---------+ + + + | 04/21/ | Office | Nephrology | Isiah Jade MD | | | 2019 | Visit | | [address] [facility] | | | | | | [address] | | | | | | [address] | | | | | | | | +--------+---------+ + + + | 05/07/ | Office | Cardiology | Charlee Oswald | | | 2019 | Visit | | [address] | | | | | | [address] | | | | | | [place] [address] | | | | | | [phone] | | | | | | | | +--------+---------+ + + + documented as of this encounter Visit Diagnoses Not on filedocumented in this encounter"
--- OUTSIDE RECORDS SUMMARY | ~2020-03-05 | XMS | Encounter Summary ---
Demographics + + + | Address | [address] | | | [place] [address] | + + + | Home Phone [...] [place] | | | | | [address] | | + + + + + | Deanna Lawson | ECON | Unknown | | + + + + + Care Team Providers + +------+ + | Care Log Operations Coordinator Name | Role | Phone | [...] Provider Unknown | | | | | [place], [place] | [phone] | | | | | [address] | | | | | | [phone] | | | +--------+ + + + [...] | | | | | | [facility] | | | | | | [place] [address] | | | | | | [phone] | | | | | | | | +--------+---------+ + + + | 04/21/ | Office | Nephrology | Isiah Jade MD | | 2019 | Visit | | [address] [facility] | | | | | | [address] | | | | | | [address] | | | | | | | | +--------+---------+ + + + | 05/07/ | Office | Cardiology | Charlee Oswald | | | 2019 | Visit | | [address] | | | | | | [address] | | | | | | [place] [address] | | | | | | [phone] | | | | | | | [...]
--- OUTSIDE RECORDS SUMMARY | ~2020-03-05 | XMS | Encounter Summary ---
Demographics + + + | Address | [address] | | | [place] [address] | + + + | Home Phone | | + + + | Preferred Language | Unknown | + + + | Marital Status | | + + + | Confucianism Affiliation | 1001 | + + + | Race | Unknown | + + + | Ethnic Group | Unknown | + + + Author + + + | Author | [facility] | | | and [place] | + + + | Organization | [facility] | | | [...] [place] | | | | | [address] | | + + + + + | Deanna Lawson | ECON | Unknown | | + + + + + Care Team Providers + +------+ + | Care Radiographer Technologist Name | Role | Phone | [...] + + | 01/26/ | Documentati | [facility] | Nelson, | Other (PCP progress | | 2020 | on | NEPHROLOGY JESSI | Kita Sterling | note 01/23/20) | | | | [address] | Tree Surgeon | | | | | [address] | | | | | | [address] | | | | | | [phone] | | | +--------+ + + + [...] | | | | | [address] [facility] [place], | | | | | | [place] [address] | | | | | | [phone] | | | | | | | | +--------+---------+ + + + | 04/21/ | Office | Nephrology | Isiah Jade MD | | | 2019 | Visit | | [address] | | | | | | [address] | | | | | | [address] | | | | | | | | +--------+---------+ + + + | 05/07/ | Office | Cardiology | Charlee Oswald | | | 2019 | Visit | | [address] | | | | | | [address] | | | | | | [place] [address] | | | | | | [phone] | | | | | | | | +--------+---------+ + + + documented as of this encounter Visit Diagnoses Not on filedocumented in this encounter"
--- OUTSIDE RECORDS SUMMARY | ~2020-03-05 | XMS | Encounter Summary ---
Demographics + + + | Address | [address] | | | [place] [address] | + + + | Home Phone | | + + + | Preferred Language | Unknown | + + + | Marital Status | | + + + | Latter Day Affiliation | 1001 | + + + | Race | Unknown | + + + | Ethnic Group | Unknown | + + + Author + + + | Author | [facility] | | | and [place] | + + + | Organization | [facility] | | | [...] [place] | | | | | [address] | | + + + + + | Deanna Lawson | ECON | Unknown | | + + + + + Care Team Providers + +------+ + | Care Airport Electrician Name | Role | Phone | + [...] + + | 08/12/ | Procedure | [facility] | | Cardiac pacemaker in | | 2019 | visit | CARDIOLOGY OPHELIA | | situ (Primary Dx) | | | | [address] | | | | | | [place] | | | | | | [address] | | | | | | [phone] | | | +--------+ + + + [...] of this encounter Procedure Notes Mercedez Bains, Financial Wellness Coach - 08/12/2019 8:00 AM PSTAssociated Order(s): DEVICE INT ERROGATION- REMOTEProcedure(s): DEVICE INTERROGATION- REMOTEPre-Procedure Diagnose(s): Prese nce of cardiac pacemaker PACEMAKER REMOTE INTERROGATION REPORT Name: Andres Guzmán PCP: Barbara Gilman MD : 1930 Primary cardiology provider: Charlee Oswald Primary electrophysiology provider: Enoch Thompson Device flexo operator: Flashtalking Device type: Single chamber (Ventricular) Battery Longevity: OK, 9.5 years. RV Pacin% INTERROGATION RESULTS: Please see [...] Testing reviewed by: Mercedez Bains, Device Clinic Associated attestation - Charlee Oswald FNP - 08/13/2019 9:30 AM PSTAgree with sai edocumented in this encounter Plan of Treatment +--------+---------+ + + + | Date | Type | Specialty | Care Team | Description | +--------+---------+ + + + | 03/17/ | Office | Orthopedic Surgery | Melquiades Baez | | | 2019 | Visit | | [address] | | | | | | [facility] [facility], | | | | | | [place] [address] | | | | | | [phone] | | | | | | | | +--------+---------+ + + + | 04/21/ | Office | Nephrology | Isiah Jade MD | | | 2019 | Visit | | [address] | | | | | | [address] [place] | | | | | | [address] | | | | | | | | +--------+---------+ + + + | 05/07/ | Office | Cardiology | DarkeCharlee | | | 2019 | Visit | | [address] | | | | | | [address] | | | | | | [place] [address] | | | | | | [phone] | | | | | | | [...] Mercedez Jensen | LUCA | | [place] Financial Wellness Coach 08/12/2019 4:09 EDER REMOTE | | | INTERROGATION REPORT Name: Andres Guzmán PCP: Barbara Elkins | | | MD Mukul : 1930MRN: [id number] Primary cardiology | | | provider: Charlee Oswald Primary electrophysiology provider: Enoch | | | Jay Device flexo operator: Flashtalking Device type: Single | | | chamber [...] | | | |Testing reviewed by: Mercedez Banis Device Clinic | | | | | [...]
--- OUTSIDE RECORDS SUMMARY | ~2020-03-05 | XMS | Encounter Summary ---
Demographics + + + | Address | [address] | | | [place] [address] | + + + | Home Phone | | + + + | Preferred Language | Unknown | + + + | Marital Status | | + + + | Judaism Affiliation | 1001 | + + + | Race | Unknown | + + + | Ethnic Group | Unknown | + + + Author + + + | Author | [facility] | | | and [place] | + + + | Organization | [facility] | | | and [...] [place] | | | | | [address] | | + + + + + | Deanna Lawson | ECON | Unknown | | + + + + + Care Team Providers + +------+ + | Care Superintendent Compressor Stations Name | Role | Phone | + +------+ + PCP | Unavailable | + +------+ + Encounter Details +--------+ + + + + | Date | Type | Department | Care Team | Description | +--------+ + + + + | 07/28/ | Hospital | [facility] | Robe Prasad | | | 2009 - | Encounter | [facility] | MD Brendan [address] | | | | | CARE FLO[address] | [address] [place] [address] | | | 07/31/ | | [address] | [place] [address] | | | 2009 | | [place], [place] | [phone] | | | | | [address] | | | | | | [phone] | | | +--------+ + + + [...] | | | | | | [place] [address] | | | | | | [phone] | | | | | | | | +--------+---------+ + + + | 04/21/ | Office | Nephrology | Isiah Jade MD | | | 2019 | Visit | | [address] [facility] | | | | | | [address] [place] | | | | | | [address] | | | | | | | | +--------+---------+ + + + | 05/07/ | Office | Cardiology | Charlee Oswald | | | 2019 | Visit | | [address] | | | | | | [address] | | | | | | [place] [address] | | | | | | [phone] | | | | | | | [...] | | | The pacemaker is a [employer] Altrua 60, model S601. Serial | | | number is [id number]. The electrode is a Guidant Dextrus electrode model | | | number 4136, length 50 cm. Serial number is [id number]. PACING AND | | | SENSING PARAMETERS [...] DT: | | | 08/11/2010 07:18 A NIDA/arline/[id number]/ Read by TODD HARDEN, DO | | | 08/10/2010 09:46 P Electronically signed by Todd Harden DO on | | | 07/02/2013 2:45 PM | | + + + + + | Procedure Note | + + | Kobe, Leonides Conversion - 04/14/2019 1:10 PM PDT PREOPERATIVE [...] therapy. He is admitted to the | [facility]. His beta-gala has been discontinued as well [...] DATA | | The pacemaker is a [employer] Altrua 60, model S601. Serial | | number is [id number]. | | The electrode is a Guidant Dextrus electrode model number 4136, length | | 50 cm. Serial number is [id number]. | | | | PACING AND SENSING [...] | P | | A | | TTC/arline/[id number]/ | | | | Read by | | TODD HARDEN DO 08/10/2010 09:46 P | | | | | + + documented in this encounter Visit Diagnoses Not on filedocumented in this encounter"
--- OUTSIDE RECORDS SUMMARY | ~2020-03-05 | XMS | Encounter Summary ---
Demographics + + + | Address | [address] | | | [place] [address] | + + + | Home Phone | | + + + | Preferred Language | Unknown | + + + | Marital Status | | + + + | Uatsdin Affiliation | 1001 | + + + | Race | Unknown | + + + | Ethnic Group | Unknown | + + + Author + + + | Author | [facility] | | | and [place] | + + + | Organization | [facility] | | | [...] [place] | | | | | [address] | | + + + + + | Deanna Lawson | ECON | Unknown | | + + + + + Care Team Providers + +------+ + | Care Visual Aid Expert Name | Role | Phone | + [...] [address] | | | | | [place], [place] | [place] [address] | | | | | [address] | [phone] | | | | | [phone] | | | +--------+ + + + [...] | | | | | [address] [place], | | | | | | [place] [address] | | | | | | [phone] | | | | | | | | +--------+---------+ + + + | 04/21/ | Office | Nephrology | Isiah Jade MD | | 2019 | Visit | | [address] [facility] | | | | | | [address] [place] | | | | | | [address] | | | | | | | | +--------+---------+ + + + | 05/07/ | Office | Cardiology | Charlee Oswald | | | 2019 | Visit | | [address] | | | | | | [address] | | | | | | [place] [address] | | | | | | [phone] | | | | | | | [...] 1.67 cm | | | AR Dec [place]: 1.62 m/s2 AR Dec Time: 2122.29 ms [...] RV s': | | | 0.10 m/s Procurement Technician: PARTHA Authenticated by: Vikki Godoy | | | Report Date/Time: 09-27-2018 20:0:35 | | + + + + + | Procedure Note | + + | Leonides Bullock Conversion - 04/11/2019 12:50 PM PDT Patient Name: [place] Guzmán of | | : 1930 Performing Physician: Vikki | | [facility] INDICATIONS------ | | -----afib, pacemaker, dilated aortic [...] | | cmLVPWd: 0.92 cmLVOT Area: 4.11 [id number] Diam: 2.29 cm%FS: 21.62 %EF(Teich): | | [...] mlLAESV Index (A-L): 58.76 ml/m2LAAs A2C: 25.86 [id number] A-L A2C: 90.57 | | mlLALs A2C: 6.26 cmLAAs A4C: 29.36 [id number] A-L A4C: 115.78 mlLALs A4C: 6.32 | | cmRAAs: 26.92 ve3XMLIV A-L: 103.75 mlRAESV MOD: 96.91 mlRALs: 5.92 cmTAPSE: | | 1.67 cmAR Dec Choct[place]: 1.62 m/s2AR Dec Time: 2121.29 msAR maxP.71 mmHgAR PHT: | | 615.46 msAR Vmax: 3.45 m/Armen maxP.22 mmHgAV meanP.30 mmHgAV Vmax: 1.24 | | m/Armen Vmean: 0.84 m/Armen VTI: 25.35 cmAVA Vmax: 2.51 cm2AVA (VTI): 2.84 [id number] | | (Vmax): 0.00 cm2/m2AVAI (VTI): 0.00 [...] mmHgTR Vmax: 3.74 m/sRV s': 0.10 m/s Procurement Technician: | | DBSAuthenticated by: [facility] Date/Time: 09-27-2018 20:0:35 IMPRESSION: 1. [...] | |TAPSE: 1.67 cm | |AR Dec [place]: 1.62 m/s2 | |AR Dec Time: 2122.29 [...] |RV s': 0.10 m/s | | | |Procurement Technician: DBS | |Authenticated by: Vikki Godoy | [...]
--- OUTSIDE RECORDS SUMMARY | ~2020-03-05 | XMS | Encounter Summary ---
Demographics + + + | Address | [address] | | | [place] [address] | + + + | Home Phone | | + + + | Preferred Language | Unknown | + + + | Marital Status | | + + + | Muslim Affiliation | 1001 | + + + [...] [place] | | | | | [address] | | + + + + + | Deanna Lawson | ECON | Unknown | | + + + + + Care Team Providers + +------+ + | Care Heat Regulator Name | Role | Phone | + +------+ + | Barbara Gimlan MD | PCP | | + +------+ + Encounter Details +--------+ + + + + | Date | Type | Department | Care Team | Description | +--------+ + + + + | 02/17/ | Hospital | [facility] | Melquiades Baez | Right hip pain | | 2019 | Encounter | [facility] | [address] | | | | | [address] | [address] [place], | | | | | [place], [place] | [place] [address] | | | | | [address] | [phone] | | | | | [phone] | | | +--------+ + + + [...] [place] | | | | | | [place] [address] | | | | | | [phone] | | | | | | | | +--------+---------+ + + + | 04/21/ | Office | Nephrology | Isiah Jade MD | | | 2019 | Visit | | [address] [facility] | | | | | | [address] | | | | | | [address] | | | | | | | | +--------+---------+ + + + | 05/07/ | Office | Cardiology | Charlee Oswald | | | 2019 | Visit | | [address] | | | | | | [address] | | | | | | [place] [address] | | | | | | [phone] | | | | | | | [...] created this | | | entry using [employer] Recognition software and [employer] | | | macros. The entry has been reviewed and there may still exist sound | | | alike word errors. | | | | | |Electronically signed by: Melquiades Baez DO 02/18/2020 1:54 PM PDT | | | | | | | | |Melquiades Baez DO has created this entry using [employer] | | |Recognition software and [employer] macros. The entry has been reviewed and | | |there may still exist sound alike word errors. | | | | | + + + + +---------+ + + | Performing | Address | City[facility] | Phone Number | | [...]
--- OUTSIDE RECORDS SUMMARY | ~2020-03-05 | XMS | Encounter Summary ---
Demographics + + + | Address | [address] | | | [place] [address] | + + + | Home Phone [...] [place] | | | | | [address] | | + + + + + | Deanna Lawson | ECON | Unknown | | + + + + + Care Team Providers + +------+ + | Care Commercial Real Estate Lender Name | Role | Phone | + [...] + + | 01/05/ | Documentati | [facility] | Nelson, | Other (Dr. Jade | | 2020 | on | NEPHROLOGY JESSI | [facility]ie [facility] | orders) | | | | [address] | Notching Press Operator | | | | | [address] [place], [place] | | | | | | [address] | | | | | | [phone] | | | +--------+ + + + [...] | | | | | [address] [place], | | | | | | [place] [address] | | | | | | [phone] | | | | | | | | +--------+---------+ + + + | 04/21/ | Office | Nephrology | Isiah Jade MD | | | 2019 | Visit | | [address] [facility] | | | | | | [address] [place] | | | | | | [address] | | | | | | | | +--------+---------+ + + + | 05/07/ | Office | Cardiology | Charlee Oswald | | | 2020 | Visit | | [address] | | | | | | [address] | | | | | | [place] [address] | | | | | | [phone] | | | | | | | | +--------+---------+ + + + documented as of this encounter Visit Diagnoses Not on filedocumented in this encounter"
--- OUTSIDE RECORDS SUMMARY | ~2020-03-05 | XMS | Encounter Summary ---
Demographics + + + | Address | [address] | | | [place] [address] | + + + | Home Phone [...] [place] | | | | | [address] | | + + + + + | Deanna Lawson | ECON | Unknown | | + + + + + Care Team Providers + +------+ + | Care Mining Support Worker Name | Role | Phone | + +------+ + | Barbara Gilman MD | PCP | | + +------+ + Encounter Details +--------+ + + + + | Date | Type | Department | Care Team | Description | +--------+ + + + + | 08/08/ | Orders Only | [facility] | Charlee Oswald | | | 2017 | | CARDIOLOGY ALYX | [address] | | | | | [address] | [address] | | | | | [address] | [place] [address] | | | | | [place] | [phone] | | | | | [address] | | | | | | [phone] | | | +--------+ + + + [...] | | | | | [address] [place] | | | | | | [place] [address] | | | | | | [phone] | | | | | | | | +--------+---------+ + + + | 04/21/ | Office | Nephrology | Isaih Jade MD | | | 2019 | Visit | | [address] [facility] | | | | | | [address] [place] | | | | | | [address] | | | | | | | | +--------+---------+ + + + | 05/07/ | Office | Cardiology | Charlee Oswald | | | 2019 | Visit | | [address] | | | | | | [address] | | | | | | [place] [address] | | | | | | [phone] | | | | | | | [...]
--- OUTSIDE RECORDS SUMMARY | ~2020-03-05 | XMS | Encounter Summary ---
Demographics + + + | Address | [address] | | | [place] [address] | + + + | Home Phone | | + + + | Preferred Language | Unknown | + + + | Marital Status | | + + + | Yazdanism Affiliation | [id number] | + + + | Race | Unknown | + + + | Ethnic Group | Unknown | + + + Author + + + | Author | [facility] | | | and [place] | + + + | Organization | [facility] | | [...] [place] | | | | | [address] | | + + + + + | Deanna Lawson | ECON | Unknown | | + + + + + Care Team Providers + +------+ + | Care Coal Getter Name | Role | Phone | + [...] + + | 12/20/ | Hospital | [facility] | Julián Messina MD | Acute GI bleeding | | 2020 - | Encounter | [facility] [address] | [address] | (Primary Dx); Closed | | | | [address] | [address] [place], [place] | comminuted | | 12/31/ | | [place], [place] | [address] | intertrochanteric | | 2020 | | [phone] | | fracture of right | | | | [phone] | Regino Greene MD | femur with routine | | | | | [address] | healing; Chronic | | | | | [place] [address] | kidney disease, | | | | | 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 No immediate indication for PRECINCT CAPTAIN. Patient was also seen by physical therapy and occupational therapy and was recommended for discharging to SNF. However patient will b e going to [facility] bed at this time. Patient also had acute [...] No CVA tenderness, no spinal tenderness Disposition: [facility] Condition: Fair No discharge procedures [...] BUNCREARATIO 30 01/01/2020 PTH 72.57 (A) 04/01/2019 [id number] 25.2 (L) 12/27/2019 CALCIUM 8.6 01/01/2020 PHOS [...] been following up with [facility] in [place]. He has unrecovered acute kidney injury and a higher baseline creatinine. At this time there is no clinical uremia, refractory volume overload, refractory acidosis, refractory hyperkalemia and no urgent indication of starting PRECINCT CAPTAIN. Neither is there an indication for diagnostic [...] Incentive spirometry. Transfuse Prn. No indication for PRECINCT CAPTAIN for now. Await renal recovery. On discharge [...] was completed later after rounds. Dictation software, UNIFi Software, was used which may contain error for [...] but not limited to potential need for PRECINCT CAPTAIN . This is a patient with multiple [...] for their specific health problems and circumstances. eanna Doe R N - 01/01/2020 11:45 AM PDTWound care RN came to see pt to follow up on his hip incision. RN states PA has changed previously saturated dressing and pt is DC'ing home; ride is waiting downstairs. Deanna Doe RN, CMSRN, [facility] Inpatient Wound Ostomy Care [phone] 01/01/2020 11:46 AM Chai, Savana Irving RN [...] BUNCREARATIO 25 12/31/2019 PTH 72.57 (A) 04/01/2019 [id number] 25.2 (L) 12/27/2019 CALCIUM 8.5 12/31/2019 PHOS [...] been following up with [facility] in [place]. He has unrecovered acute kidney injury and a higher baseline creatinine. At this time there is no clinical uremia, refractory volume overload, refractory acidosis, refractory hyperkalemia and no urgent indication of starting PRECINCT CAPTAIN. Neither is there an indication for diagnostic [...] Incentive spirometry. Transfuse Prn. No indication for PRECINCT CAPTAIN for now. Await renal recovery. I discussed [...] was completed later after rounds. Dictation software, UNIFi Software, was used which may contain error for [...] but not limited to potential need for PRECINCT CAPTAIN . This is a patient with multiple [...] antibiotics to be completed today. Patient r celiains on Symbicort and as needed albuterol inhaler. [...] injuries: see wound RN note for treatment. [facility] ed, continue wound care at swing bed, send with extra dressing supplies. *Metabolic bone disorder: elevated PTH and phosphorus. Treatment per irish moss gatherer (see thei r note). Subjective No chest [...] who was admitted as a transfer from [facility] due t o a mechanical fall sustaining [...] finding placement and he was accepted by [facility] Swing bed [facility] in [place], [place] for rehabilitation purposes. Hospital stay was [...] Medications Current Facilty-Administered PRN Medications Ordered in [facility] Medication Dose Route Frequency Provider Last [...] but remains week, he is accepted at [facility] Bed [facility] in [place] with discharge plans tomorrow for rehabilit ation [...] plans to Swing Bed Program in [facility] tomorrow. DVT prophylaxis with SCD's only due to risks of bleeding. Discharge plans tomorrow to [facility] in [place], [place] for rehabi litation. Called his daughter Ms. Huerta and left a message with updated information at phone number [phone]. Jerry Chino MD 12/30/2019 tHolden bui PA - 12/30/2019 12:35 PM PDTFormatting of this note might be different from the [facility] Service: Gastroenterology Consult Progress Note Hospital Day: LOS: 9 days SUBJECTIVE Patient Summary: This is an 89-year-old male with multiple medical problems and a his tory of hypertension, diabetes, CKD stage III who was transferred from [facility] t o a fall and he [...] motor deficits. PSYCHIATRIC: Appropriate, affect appears normal [facility] Gastroenterology Patient Name: Andres Guzmán Procedure Date: [...] physician, the nurse, the anesthesiologist and the set up mold technician in the pre-procedure area in the [...] successful. Thermal coagulation with Gold probe 7 South African x 5 pulses was successful with hemostasis. [...] 12/29/2019 8:36 AM Number of Addenda: 0 [facility] DATA Lab Results Component Value Date WBC [...] with any questions. Florina Cantu PA-C [facility] Gastroenterology 12/30/2019 Associated attestation - Lamont Hernandez MD - 12/31/2019 2:17 PM [id number] male with GI bleeding due to duodenal ulcer with visible vessel. The ulcer and visible vessel were tr eated with injection and gold probe thermal coagulation. The patient was seen and examined by me personally. The case was discussed with the physician's household personal assistant and I agree with the assessment [...] original. ORTHOPEDIC SURGERY PROGRESS NOTE Patient Name: nAdres Guzmán Patient : 1930 Gender: male Date of admission: 12/21/2019 Post-operative day: 8 Status post Procedure(s) (LRB): EGD (N/A) Assessment and Plan The patient chart and medications were reviewed in detail and the patient was seen and exam ined. No anticipated change in admission status. Disposition: Plan to discharge tomorrow[facility] to [facility], once medically stable and cleared by [...] BUNCREARATIO 23 12/30/2019 PTH 72.57 (A) 04/01/2019 [id number] 25.2 (L) 12/27/2019 CALCIUM 8.6 12/30/2019 PHOS [...] been following up with [facility] in [place]. That had improved with nonoliguric state but now seems to have leveled off at around 3 and this may be reflection of unrecovered acute kidney injury and a higher baseline creatinine. At this time there is no clinical uremia, refractory volume overload, refractory acidosis, refractory hyperkalemia and no urgent indication of starting PRECINCT CAPTAIN. Neither is there an indication for diagnostic [...] Incentive spirometry. Transfuse Prn. No indication for PRECINCT CAPTAIN for now. Await renal recovery. I discussed [...] was completed later after rounds. Dictation software, UNIFi Software, was used which may contain error for [...] but not limited to potential need for PRECINCT CAPTAIN . This is a patient with multiple [...] BUNCREARATIO 30 12/29/2019 PTH 72.57 (A) 04/01/2019 [id number] 25.2 (L) 12/27/2019 CALCIUM 8.7 12/29/2019 PHOS [...] been following up with [facility] in [place]. That seems to be improving with nonoliguric state and small reduction in creatinine. At this time there is no clinical uremia, refractory volume overload, refractory acidosis, refractory hyperkalemia and no urgent indication of starting PRECINCT CAPTAIN. Neither is there an indication for diagnostic [...] Incentive spirometry. Transfuse Prn. No indication for PRECINCT CAPTAIN for now. Await renal recovery. I discussed [...] was completed later after rounds. Dictation software, UNIFi Software, was used which may contain error for [...] but not limited to potential need for PRECINCT CAPTAIN . acetaminophen 1,000 mg Oral 3 times [...] dextrose 10% pantoprazole 8 mg/hr (12/29/19 1151) AHayfnmi, Jerry Malik MD - 12/29/2019 8:52 AM PDT Service: Hospitalist Daily Progress Note Andres Guzmán 89 y.o. : 1930 SEX: male PCP: Barbara Gilman MD Hospital Day: LOS: 8 SUBJECTIVE Patient Summary: Patient is an 89-year-old male with past medical history of HTN, DM Type 2, CKD Stage III w ith baseline creatinine 1.7 who was admitted as a transfer from [facility] due t o a mechanical fall sustaining [...] finding placement and he was accepted by [facility] Swing bed [facility] in [place], [place] for rehabilitation purposes. Hospita l stay [...] but needs rehabilitation, he is accepted by [facility] in [place], [place] with discharge plans early next weeks [...] another 1 to 2 to SNF in [place], [place] if remains stable and improve d. Called his daughter Ms. Huerta and updated her about plans at phone number [phone]. Jerry Chino MD 12/29/2019 acon, Norma Kilpatrick [...] BUNCREARATIO 28 12/28/2019 PTH 72.57 (A) 04/01/2019 [id number] 25.2 (L) 12/27/2019 CALCIUM 8.5 12/28/2019 PHOS [...] been following up with [facility] in [place]. That seems to be improving with nonoliguric state and small reduction in creatinine. At this time there is no clinical uremia, refractory volume overload, refractory acidosis, refractory hyperkalemia and no urgent indication of starting PRECINCT CAPTAIN. Neither is there an indication for diagnostic [...] Incentive spirometry. Transfuse Prn. No indication for PRECINCT CAPTAIN for now. Await renal recovery. I discussed [...] was completed later after rounds. Dictation software, UNIFi Software, was used which may contain error for [...] but not limited to potential need for PRECINCT CAPTAIN . acetaminophen 1,000 mg Oral 3 times [...] dinner dextrose 10% pantoprazole 8 mg/hr (12/28/19 1055) orter, DALILA Grant - 12/28/2019 10:49 AM PDT [facility] Service: Orthopedic Surgery Progress Note Hospital Day: [...] DALILA Peralta has created this entry using [employer] Recognition softGrouPAY e and ParkAround macros. The entry has been reviewed and [...] who was admitted as a transfer from [facility] due t o a mechanical fall sustaining [...] finding placement and he was accepted by [facility] Swing bed [facility] in [place], [place] for rehabilitation purposes. Hospita l stay [...] 25 mg 25 mg Oral Q8H PRN Tuhin Jc, MD 25 mg at 12/08 1011 ondansetron [...] making slow progress, he is accepted by [facility] in [place], [place] with discharge plans possib ly early [...] 1 to 2 to a SNF in [place], [place] when renal functions are st able and cleared by Nephrology services. Also called his daughter Ms. Huerta and updated her a bout plans at phone number [phone]. Jerry Chino MD 12/28/2019 Ghazal Ferrer COTA [...] been following up with [facility] in [place]. That seems to be improving with nonoliguric state and small reduction in creatinine. At this time there is no clinical uremia, refractory volume overload, refractory acidosis, refractory hyperkalemia and no urgent indication of starting PRECINCT CAPTAIN. Neither is there an indication for diagnostic [...] Incentive spirometry. Transfuse Prn. No indication for PRECINCT CAPTAIN for now. Await renal recovery. I discussed [...] was completed later after rounds. Dictation software, Dragon, was used which may contain error for [...] but not limited to potential need for PRECINCT CAPTAIN . acetaminophen 1,000 mg Oral 3 times [...] status. Disposition: Plan to discharge Monday, to [facility], once medically stable a nd cleared [...] Net -400 ml . Treatment plan: per irish moss gatherer; slowly improving. *Blood pressure: labile; See VS [...] disorder: elevated PTH and phosphorus. Treatment per irish moss gatherer (see thei r note). Subjective No chest [...] who was admitted as a transfer from [facility] due t o a mechanical fall sustaining [...] trength and mobility. He is accepted by [facility] in [place], [place] and discharge is delayed due to [...] to 3 days to a SNF in [place], [place] when renal functions a re stable and cleared by Nephrology services. Jerry Chino MD 12/27/2019 Linda Montalvo RN - 12/26/2019 5:09 PM PDT [facility] Service: Wound Care Consult Note Hospital Day: [...] questions. Linda Cedeno RN 17:16 [place] [facility] - 12/26/2019 12:55 PM PDTFormatting of this note might be different from the jayme lClaudy ORTHOPEDIC SURGERY PROGRESS NOTE Patient Name: [...] who was admitted as a transfer from [facility] due t o a mechanical fall sustaining [...] Medications Current Facilty-Administered PRN Medications Ordered in [facility] Medication Dose Route Frequency Provider Last [...] placement is recommended. 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 [...] Dr. Huerta and the at phone number [phone] Code Status: Full Code Regino Greene MD [...] status. Disposition: Plan to discharge Monday, to [facility], once medically stable a nd cleared [...] lab follow-up and treatment per hospitalist and irish moss gatherer. *Blood pressure: hypotensive; See VS for BP trending. 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 Huerta and the at phone number [phone] Code Status: Full Code Regino Greene MD [...] any conversation with family members today. 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 Code Status: Full Code Regino Greene MD 12/23/2019 10:03 PM [place] [facility] - 12/23/2019 12:27 PM PDT . [...] RN at 12/22/2019 5:35 PM PDTBerKetan akers V, PT - 12/22/2019 1:14 PM PDTFormatting [...] GAMMA NAIL; Surgeon: Melquiades Baez DO; Location: [facility] MAIN OR OTHER SURGICAL HISTORY CATARACT EXTRACTION - bilateral OTHER SURGICAL HISTORY 2015 PACEMAKER INSERTION TONSILLECTOMY AND ADENOIDECTOMY HOME MEDS: Scheduled Meds: [Oct] acetaminophen 1,000 mg Oral 3 times per day [Oct] albuterol 4 puff Inhalation RT Q6H [OCT Hold] allopurinol 100 mg Oral Daily [OCT Hold] ascorbic acid 500 mg Oral Daily [OCT Hold] budesonide-formoterol 2 puff Inhalation RT BID [OCT Hold] carvedilol 3.125 mg Oral BID WC [Oct] ferrous sulfate 325 mg Oral Every Other Day [OCT Hold] insulin lispro 0-12 Units Subcutaneous TID WC [Oct] piperacillin-tazobactam (ZOSYN) IVPB (custom doses) 3.375 g Intravenous Q12 H [OCT Hold] pravastatin 40 mg Oral Nightly [OCT Hold] terazosin 10 mg Oral Daily with dinner Continuous Infusions: [OCT Hold] dextrose 10% pantoprazole 8 mg/hr (12/29/19 0051) PRN Meds:.[OCT Hold] aluminum & magnesium hydroxide-simethicone, Hypoglycemia Management AND POCT Glucose AND [MAR Hold] dextrose AND [MAR Hold] dextrose 10%, [MAR Hold] d ocusate sodium, [MAR Hold] HYDROmorphone, [MAR Hold] meclizine, [MAR Hold] ondansetron, [MAR Hold] ondansetron, [MAR Hold] senna ALLERGIES Allergies Allergen Reactions Codeine [...] Electronically Signed by: Lamont Hernandez MD 12/29/2019 [facility] Portions of this chart may have been created with UNIFi Software voice recognition software. Occasi onal wrong-word or sound-alike substitutions may have occurred due to the inherent castañeda itations of voice recognition software. Please read the chart carefully and recognize, using context, where these substitutions have occurred Julián Urbina MD - 12/21/2019 7:38 PM PDTFormatting of this note m ight be different from the original. [facility] Service: Hospitalist History and Physical Date of Admission: Dec 21 2019 Requesting Physician: [facility] emergency Department Reason for Admission: Right comminuted intertrochanteric fracture of the hip CHIEF COMPLAINT: Mechanical fall tripped over side curb landed on the right hip area right hip pain today HISTORY OF PRESENT ILLNESS The patient is a 89 y.o. male Transfer from [facility] after fall with right hip fracture with multiple comor bidities being on Eliquis as well requested for higher level of care to transfer to [facility] wit h orthopedic 89 years old gentleman fall at this morning mechanical fall tripped on the curb and result ed in right hip pain [facility] visited x-ray found to have a [...] and LFT Orthopedic on-call was consulted from [facility] and requested to transfer for higher level of care At [facility] with multiple comorbidities [...] to quit: 1981 Years since quittin.3 Smokeless Tobacco Never Used [...] transfer lab WBC 5.9 hb10.2 hct 30.5 [id number] potassium 5.1 Bun 85 cre 2.6 Co2-24 [...] meds Also already consulted n.p.o. after midnight Eliquis last dose was this a.m. KATI on Chronic kidney disease stage III/IV Gentle hydration today monitor trend avoid n ephrotoxin hold diurectics For now Hypertension beta-gala on board and terazosin monitor blood pressure Cardiomyopathy s/p pacemaker chronic diastolic CHF with preserved ejection fraction not in acute decompensation on beta-gala Hold Lasix for now as per stated reason Chronic A. fib [id number]- VASC score is 6- Hold Eliquis for [...] Old records reviewed on EMR. Dictation software, UNIFi Software, used which may contain error for similar sounding words even af ter review. Personal communication requested for any clarification. Disposition: inpatient Code Status: FULL CODE Primary Care Physician: MD Julián Nobles MD 12/21/2019 documented in thi s encounter Consult Notes Lamont Hernandez MD - 12/29/2019 10:26 AM PDT Gastroenterology Consultation: [facility] 12/29/2019 Andres Godinezdemetrioprem 89 y.o. [id number] History of present illness: Gastroenterology consultation is requested for evaluation of GI bleeding with melena. This is an 89-year-old male with multiple medical problems and a history of hypertension, d iabetes, CKD stage III who was transferred from [facility] due to a fall and he sustain [...] GAMMA NAIL; Surgeon: Melquiades Baez DO; Location: [facility] MAIN OR OTHER [...] file Gets together: Not on file Attends denominational service: Not on file Active member of [...] Sister Heart disease Brother Hypertension Brother Medications: [OCT Hold] acetaminophen 1,000 mg Oral 3 times per day [OCT Hold] albuterol 4 puff Inhalation RT Q6H [OCT Hold] allopurinol 100 mg Oral Daily [OCT Hold] ascorbic acid 500 mg Oral Daily [OCT Hold] budesonide-formoterol 2 puff Inhalation RT BID [OCT Hold] carvedilol 3.125 mg Oral BID WC [MAR Hold] ferrous sulfate 325 mg Oral Every [...] this chart may have been created with UNIFi Software voice recognition software. Occasi onal wrong-word or sound-alike substitutions may have occurred due to the inherent castañeda itations of voice recognition software. Please read the chart carefully and recognize, using context, where these substitutions have occurred Hayley Peres MD - 12/25/2019 8:46 PM PDT Consulted by [facility] Problem List: Patient Active Problem List [...] III with baseline creatinine 1.7 admitted to [facility] on December 20 after a mechanical fall that led to right hip fracture. The patient was transferr ed from [facility] for surgery. The patient did [...] Tristan Gage at the nephrology clinic in [place]. The patien t is poor historian and does not recall seeing a irish moss gatherer in the past. He also not awar [...] Order(s): IP CONSULT TO WOUND OSTOMY NURSE [facility] Service: Wound Care Consult Note Hospital Day: [...] Elizabeth MD - 12/24/2019 11:33 AM PDT [facility] Service: Physicial Medicine & Rehab Consultation note [...] curb and resulted in right hip pain [facility] visited x-ray found to have a [...] diabetes, and cirrhosis He was transferred to [facility], and is now s/p ORIF with [...] GAMMA NAIL; Surgeon: Melquiades Baez DO; Location: [facility] MAIN OR OTHER [...] should consist SNF placement closer to home ([place]). Code Status: Full Code Wing Marie Reed MD 12/24/2019 Melquiades Gill, - 12/22/2019 7:50 AM PDTAssociated Order(s): PROVIDER TO PROVIDER CONSULT [facility] Orthopaedic and Sports Medicine Service: [...] hip f racture. He was transferred to [facility] for concerns with other comor bidities. He [...] [Oct] ascorbic acid 500 mg Oral Daily [OCT Hold] carvedilol 25 mg Oral BID WC [Oct] [...] surgery. He will be taken for a [facility] hip cephalo-medullary nail.The risks and benefits [...] might b e different from the original. RETIREMENT FACILITY TRANSFER ORDERS Patient Name: Andres Guzmán [...] limb(s)): [x] OT Evaluation & Treat [] FASHION ADVISER Evaluation Treat Wound/Skin Care: [] Follow current recommendations of the wound team for treatment. [] Wound Vac management per nursing protocol. Labs/Imaging: [] PT/INR: Frequency per SNF provider Goal INR: [] Fingerstick glucose check before meals and bedtime and PRN [] Labs: Follow up: Melquiades Baez DO [address] [place] [address] [id number] In 2 weeks For post op care Barbara Gilman MD [address] [place] [address] DR Ledy Villafana [place] [id number] In 1 week I have advised this [...] Regino Greene MD, certify that post hospital senior living care is medically necessa ry on a continuing basis for any of the conditions for which he/she received care during thi s hospitalization. Additional Orders/Instructions: Physician's signature: 01/01/2020 10:59 AM [facility] NURSING FACILITY USE ONLY: [] Admitting orders verbally reviewed with Admitting Physician, modified where appropriate, and approved. Verbal Order from Date: Time: _ RN name: RN signature: [] Admitting orders reviewed, modified where appropriate, and approved. Physician's signature: Date: Time: lan of Pj - Savana Alfaro RN - 01/01/2020 6:33 [...] HIGH Current Discharge Plan Anticipated Discharge Disposition: senior living facility Expected DC Date: 12/31/2019 Barriers to Discharge: placement Steps Taken Toward Discharge: Attended morning rounds, called [facility] and provided upd ate of Pt Next Steps: d/c to [facility] Community Support Services Current Outpt/Agency/Support Groups: none Community Agency Name: none Other Resources: Discharge Transportation Transportation Needs: agency transportation Notes: Pt on course to discharge to [facility] tomorrow. Idalia discusse d with [facility] team and they are accepting Pt tomorrow if Pt is medically ready. Cm will follow for d/c needs that arise. Electronically signed: Ja Marcus RN 12/31/2019 3:54 PM lan of Care - Andrez Llamas, CASINO ACCOUNTANT - 12/31/2019 2:04 PM PDT Physical Therapy Treatment Note Recommended discharge disposition: senior living facility Post discharge physical therapy recommendation: Equipment [...] Most Recent Value LTG Status continued at 12/30/2019804 LTG [place] Level supervised at 12/30/2019804 LTG Assistive Device none at 12/30/2019 08 All Transfers Goal Most Recent Value LTG Status new at 12/30/2019804 LTG [place] Level minimum assist (75% patient effort) at 12/30/2019804 LTG Assistive Device 2 wheeled walker (FWW) at 12/30/2019804 Gait Goal Most Recent Value LTG Status new at 12/30/2019804 LTG [place] Level minimum assist (75% patient effort) at 12/30/2019804 LTG Assistive Device 2 wheeled walker (FWW) at 12/30/2019804 LTG Distance (feet) 50ft at 12/30/2019 0805 PT Time Calculation Individual Start Time: 1307 Individual Stop Time: 1320 Individual Total Time: 13 PT Total Treatment Time: 13 lan of Care - Liz Cabral RN - 12/31/2019 8:00 AM PDT Problem: Fall Injury Risk Goal: Absence of Fall and Fall-Related Injury Outcome: Ongoing, progressing Pt ambulates with staff and PT, able to make needs known and uses call light appropriately lan of [facility] [place] - Torie Hamlin RN - 12/31/2019 3:02 AM PDTPatient resting [...] chart r sha complete. la n of [facility] [place] - Torie Bryant RN - 12/30/2019 10:03 PM PDT Problem: Adult Inpatient Plan of Care Goal: Plan of Care Review Outcome: Ongoing, progressing Goal: Readiness for Transition of Care Outcome: Ongoing, progressing Plan of care reviewed with patient who verbalizes agreement with no voiced concerns. Aware of plan for discharge to [facility] tomorrow and has no concerns regarding [...] Physical Therapy Treatment Note Recommended discharge disposition: senior living facility Post discharge physical therapy recommendation: Equipment Recommendations: Barriers to community-based discharge Physical Impairment Recommended Frequency: 5 times/wk for 7 days with reassessment due by 01/06/20 Summary: pt sitting in chair needing to use commode completed tranfser training from gabriella santos to nay left pt on commode w/ call light within reach nsg then reporting pt's IV had become dislodged and needed to be returned to bed assisted pt to standing while nsg perform ed pericare then completed trnasfer training back to bed Cognitive Assessment Orientation: oriented x 4 Bed Mobility Sit to Supine, Level of [place]: moderate assist (50% patient effort) Safety Issues: decreased use of legs for bridging/pushing Impairments: strength decreased Transfers Chair-Bed, Level of [place]: moderate assist (50% patient effort) Xbl-Ftuom-Dzx, Assistive Device: gait belt Sit-Stand, Level of [place]: moderate assist (50% patient effort) Stand-Sit, Level of [place]: moderate assist (50% patient effort) Xhv-Kwnbl-Ele, Assistive Device: gait belt Safety Issues: balance decreased during turns, step length decreased Impairments: strength decreased Goals Reflects last filed data and may be from multiple contributors. All Bed Mobility Goal Most Recent Value LTG Status continued at 12/30/2019 08 LTG [place] Level supervised at 12/30/2019 08 LTG Assistive Device none at 12/30/2019 08 All Transfers Goal Most Recent Value LTG Status new at 12/30/2019 08 LTG [place] Level minimum assist (75% patient effort) at 12/30/2019 0805 LTG Assistive Device 2 wheeled walker (FWW) at 12/30/2019 0805 Gait Goal Most Recent Value LTG Status new at 12/30/2019 0805 LTG [place] Level minimum assist (75% patient effort) at [...] Bed in low position, gait belt available, wood flour miller socks on. Problem: Skin Injury Risk Increased [...] RN at 12/30/2019 12:33 PM PDTPlan of Angelica Molina RD - 12/30/2019 11:36 AM PDT Problem: [...] 12/30/2019 11:36 AM lan of Care - Levar martinezfrancesca Rosa Elena A, PT - 12/30/2019 8:05 AM PDTFormatting of this note might be different from t he original. Physical Therapy Re-Assessment Note Recommended discharge disposition: senior living facility Post discharge physical therapy recommendation: ongoing low intensity therapy, will benefi t from structured setting Equipment Recommendations: (TBD) Barriers to community-based discharge Physical Impairment, Pain, and Fall risk Planned Interventions: balance training, bed mobility training, gait training, home exercis e program, manual therapy techniques, patient/family education, ROM (Range of Motion), stair training, strengthening, stretching, tristanian ball techniques, wheelchair management/propulsio n training Recommended [...] Documentation: sit to/from stand Sit-Stand, Level of [place]: moderate assist (50% patient effort) Stand-Sit, Level of [place]: moderate assist (50% patient effort) Ncb-Ojofw-Dfp, Assistive Device: other (see comments)(platform walker ) Maintain Weight Bearing Status: able to maintain weight bearing status Safety Issues: balance decreased during turns Impairments: pain, strength decreased, impaired balance Gait Gait Comments: ambulated with shuffled steps and decreased quita Level of [place]: moderate assist (50% patient effort) Assistive Device: [...] Most Recent Value LTG Status continued at 12/30/2019804 LTG [place] Level supervised at 12/30/2019804 LTG Assistive Device none at 12/30/2019 08 All Transfers Goal Most Recent Value LTG Status new at 12/30/2019804 LTG [place] Level minimum assist (75% patient effort) at 12/30/2019804 LTG Assistive Device 2 wheeled walker (FWW) at 12/30/2019804 Gait Goal Most Recent Value LTG Status new at 12/30/2019804 LTG [place] Level minimum assist (75% patient effort) at 12/30/2019804 LTG Assistive Device 2 wheeled walker (FWW) at 12/30/2019 08 LTG Distance (feet) 50ft at 12/30/2019 08 lan of Care - Torie Hamlin RN [...] at 0 12/30/2019 6:19 AM PDTPlan of Pj - Torie Bryant RN - 12/30/2019 12:46 AM PDT Problem: [...] RN at 05/2020 6:04 PM PDTPlan of Leatha Amezquita RN - 12/29/2019 1:37 PM PDT Problem: [...] on hip has been changed. lan of Care - Shannon Stringer PTA - 10:01 AM [...] Hernandez MD at 10:20 AM PDTPlan of Herlinda Silva RN - 12/28/2019 6:38 PM PDTPatient h [...] RN at 04/2020 12:24 PM PDTPlan of Pj - Lawanda Bowden RN - 12/28/2019 12:27 AM PDT Problem: [...] RN at 04/2020 5:29 AM PDTPlan of Andrez Perry PTA - 12/27/2019 1:39 PM PDT Physical Therapy Treatment Note Recommended discharge disposition: senior living facility Post discharge physical therapy recommendation: Equipment [...] Bed Mobility Supine to Sit, Level of [place]: moderate assist (50% patient effort) Sit to Supine, Level of [place]: moderate assist (50% patient effort) Safety Issues: decreased use of legs for bridging/pushing Impairments: strength decreased Transfers Sit-Stand, Level of [place]: moderate assist (50% patient effort) Stand-Sit, Level of [place]: moderate assist (50% patient effort) Vrk-Bhzpo-Xih, Assistive Device: other (see comments)(UP walker) Safety Issues: balance decreased during turns, step length decreased Impairments: strength decreased Gait Level of [place]: moderate assist (50% patient effort) Assistive Device: [...] LTG Status new at 12/23/2019 1600 LTG [place] Level supervised at 12/23/2019 1600 LTG Assistive Device none at 12/23/2019 1600 All Transfers Goal Most Recent Value LTG Status new at 12/23/2019 1600 LTG [place] Level modified independent at 12/23/2019 1600 LTG Assistive Device 2 wheeled walker (FWW) at 12/23/2019 1600 Gait Goal Most Recent Value LTG Status new at 12/23/2019 1600 LTG [place] Level stand by assist at 12/23/2019 1600 LTG Assistive Device 2 wheeled walker (FWW) at 12/23/2019 1600 LTG Distance (feet) 50 at 12/23/2019 1600 PT Time Calculation Individual Start Time: 1230 Individual Stop Time: 1254 Individual Total Time: 24 PT Total Treatment Time: 24 lan of Mell Sapp RN - 12/27/2019 12:32 PM PDT Problem: [...] upon request. 12 :36 PM PDTPlan of Andrez Perry PTA - 12/27/2019 12:05 PM PDTFormatting of [...] Bed Mobility Supine to Sit, Level of [place]: moderate assist (50% patient effort) Safety Issues: decreased use of legs for bridging/pushing Impairments: strength decreased Transfers Sit-Stand, Level of [place]: moderate assist (50% patient effort) Stand-Sit, Level of [place]: moderate assist (50% patient effort) Ywl-Qcpad-Uts, Assistive Device: other (see comments)(UP walker) Safety Issues: balance decreased during turns, step length decreased Impairments: strength decreased Exercises Bed exercises: ankle pumps, quad sets, heel slides, hip abduction/adduction, glut sets Goals Reflects last filed data and may be from multiple contributors. All Bed Mobility Goal Most Recent Value LTG Status new at 12/23/2019 1600 LTG [place] Level supervised at 12/23/2019 1600 LTG Assistive Device none at 12/23/2019 1600 All Transfers Goal Most Recent Value LTG Status new at 12/23/2019 1600 LTG [place] Level modified independent at 12/23/2019 1600 LTG Assistive Device 2 wheeled walker (FWW) at 12/23/2019 1600 Gait Goal Most Recent Value LTG Status new at 12/23/2019 1600 LTG [place] Level stand by assist at 12/23/2019 1600 LTG Assistive Device 2 wheeled walker (FWW) at 12/23/2019 1600 LTG Distance (feet) 50 at 12/23/2019 1600 PT Time Calculation Individual Start Time: 1042 Individual Stop Time: 1105 Individual Total Time: 23 PT Total Treatment Time: 23 lan of Pj - Lawanda Srinivasan do, RN - 12/27/2019 6:30 AM PDTAt [...] handled ghada e horn, long handled sponge, pattern layout worker, sock aide Barriers to community-based discharge: Level [...] x1, rest break inbetween set d/t fatigue. [employer] for proper tech during ex able to continue seq uence intitially however would require cueing/assist later on in reps. Goals Reflects last filed data and may be from multiple contributors. LB Dressing Goal Most Recent Value LTG Status new at 12/24/2019 0953 LTG [place] Level moderate assist (50% patient effort), verbal cues required at 12/23 0953 LTG Adaptive Equipment pattern layout worker, shoe horn, long handled, sock-aid [AE as needed] at 2019 0953 Toilet Transfer Goal Most Recent Value LTG Status new at 12/24/2019 0953 LTG [place] Level minimum assist (75% patient effort), verbal [...] OTR/L. lan of Care - Andrez Dominguez, CASINO ACCOUNTANT - 12/26/2019 1:46 PM PDTFormatting of this [...] Bed Mobility Supine to Sit, Level of [place]: moderate assist (50% patient effort) Sit to Supine, Level of [place]: moderate assist (50% patient effort) Safety Issues: decreased use of legs for bridging/pushing Impairments: strength decreased Transfers Sit-Stand, Level of [place]: moderate assist (50% patient effort) Stand-Sit, Level of [place]: moderate assist (50% patient effort) Zhc-Qywwf-Awl, Assistive Device: other (see comments)(Up walker) Safety Issues: balance decreased during turns, step length decreased Impairments: strength decreased Gait Level of [place]: moderate assist (50% patient effort) Assistive Device: [...] LTG Status new at 12/23/2019 1600 LTG [place] Level supervised at 12/23/2019 1600 LTG Assistive Device none at 12/23/2019 1600 All Transfers Goal Most Recent Value LTG Status new at 12/23/2019 1600 LTG [place] Level modified independent at 12/23/2019 1600 LTG Assistive Device 2 wheeled walker (FWW) at 12/23/2019 1600 Gait Goal Most Recent Value LTG Status new at 12/23/2019 1600 LTG [place] Level stand by assist at 12/23/2019 1600 [...] Bed Mobility Supine to Sit, Level of [place]: moderate assist (50% patient effort) Safety Issues: decreased use of legs for bridging/pushing Impairments: strength decreased Transfers Sit-Stand, Level of [place]: moderate assist (50% patient effort) Stand-Sit, Level of [place]: moderate assist (50% patient effort) Hjx-Cveys-Oqv, Assistive Device: other (see comments)(Up walker) Safety Issues: balance decreased during turns, step length decreased Impairments: strength decreased Gait Level of [place]: moderate assist (50% patient effort) Assistive Device: [...] LTG Status new at 12/23/2019 1600 LTG [place] Level supervised at 12/23/2019 1600 LTG Assistive Device none at 12/23/2019 1600 All Transfers Goal Most Recent Value LTG Status new at 12/23/2019 1600 LTG [place] Level modified independent at 12/23/2019 1600 LTG Assistive Device 2 wheeled walker (FWW) at 12/23/2019 1600 Gait Goal Most Recent Value LTG Status new at 12/23/2019 1600 LTG [place] Level stand by assist at 12/23/2019 1600 LTG Assistive Device 2 wheeled walker (FWW) at 12/23/2019 1600 LTG Distance (feet) 50 at 12/23/2019 1600 PT Time Calculation Individual Start Time: 1030 Individual Stop Time: 1054 Individual Total Time: 24 PT Total Treatment Time: 24 lan of Ja Parker RN - 12/26/2019 11:45 AM PDTCare Management Follow-Up Readmission Risk: HIGH Current Discharge Plan Anticipated Discharge Disposition: senior living facility Expected DC Date: 12/30/2019 Barriers to Discharge: placement Steps Taken Toward Discharge: Attended morning rounds Next Steps: d/c to [facility] Community Support Services Current Outpt/Agency/Support Groups: none Community Agency Name: none Other Resources: Discharge Transportation Transportation Needs: agency transportation Notes: Pt not medically ready for discharge. Cm called Idalia NELSON at [facility] and updat ed her on Pt progress. Pt may be ready for d/c Monday. Cm will continue to follow for placem ent needs. Electronically signed: Ja Marcus RN 12/26/2019 11:46 AM lan of Audra Pickard, Nursing Man [facility] t - 12/26/2019 10:00 AM PDT [...] Bed Mobility Sit to Supine, Level of [place]: maximal assist (25% patient effort), verbal cues requ ired Safety Issues: decreased use of legs for bridging/pushing, decreased use of arms for pushin g/pulling Impairments: strength decreased, pain, impaired balance Transfers Sit-Stand, Level of [place]: moderate assist (50% patient effort), verbal cues require d Stand-Sit, Level of [place]: moderate assist (50% patient effort), verbal cues require d Fmx-Btzbo-Ctf, Assistive Device: 2 wheeled walker (FWW), gait belt Safety Issues: sequencing ability decreased, balance decreased during turns Gait Level of [place]: moderate assist (50% patient effort) Assistive Device: [...] LTG Status new at 12/23/2019 1600 LTG [place] Level supervised at 12/23/2019 1600 LTG Assistive Device none at 12/23/2019 1600 All Transfers Goal Most Recent Value LTG Status new at 12/23/2019 1600 LTG [place] Level modified independent at 12/23/2019 1600 LTG Assistive Device 2 wheeled walker (FWW) at 12/23/2019 1600 Gait Goal Most Recent Value LTG Status new at 12/23/2019 1600 LTG [place] Level stand by assist at 12/23/2019 1600 [...] HIGH Current Discharge Plan Anticipated Discharge Disposition: senior living facility Expected DC Date: 12/27/2019 Barriers to Discharge: placement Steps Taken Toward Discharge: Attended rounds Next Steps: d/c to [facility] Community Support Services Current Outpt/Agency/Support Groups: none Community Agency Name: none Other Resources: Discharge Transportation Transportation Needs: agency transportation Notes: Pt not medically ready for discharge. Cm received call from [facility] from [facility]. Pt has been accepted but wants Pt [...] (Range of Motion), stair training, strengthening, stretching, tristanian ball techniques, w heelchair management/propulsion training Recommended [...] HOB elevated Supine to Sit, Level of [place]: moderate assist (50% patient effort), verbal cues req uired Safety Issues: decreased use of legs for bridging/pushing, decreased use of arms for pushin g/pulling Impairments: strength decreased, pain, impaired balance Transfers Additional Documentation: sit to/from stand Chair-Bed, Level of [place]: moderate assist (50% patient effort), verbal cues require d Gxk-Yoceh-Bvx, Assistive Device: 2 wheeled walker (FWW) Sit-Stand, Level of [place]: moderate assist (50% patient effort), verbal cues require d Stand-Sit, Level of [place]: moderate assist (50% patient effort), verbal cues require d Yyf-Glibk-Ujm, Assistive Device: 2 wheeled walker (FWW), gait belt Maintain Weight Bearing Status: able to maintain weight bearing status Safety Issues: sequencing ability decreased, balance decreased during turns Impairments: impaired balance, coordination impaired, pain, decreased flexibility Gait Gait Comments: 4 steps to chair Level of [place]: moderate assist (50% patient effort) Assistive Device: [...] LTG Status new at 12/23/2019 1600 LTG [place] Level supervised at 12/23/2019 1600 LTG Assistive Device none at 12/23/2019 1600 All Transfers Goal Most Recent Value LTG Status new at 12/23/2019 1600 LTG [place] Level modified independent at 12/23/2019 1600 LTG Assistive Device 2 wheeled walker (FWW) at 12/23/2019 1600 Gait Goal Most Recent Value LTG Status new at 12/23/2019 1600 LTG [place] Level stand by assist at 12/23/2019 1600 [...] pulli ng on skin. Wound consult submitted. lan of Jada Yoo RN - 12/25/2019 5:26 [...] long handled shoe horn, long handled sponge, pattern layout worker, sock aide(BSC (?)) Barriers to community-based discharge [...] seated in the recliner Grooming, Level of [place]us[place]: supervised Assistive Device: none Grooming Assess/Train, Position: sitting Bed Mobility Additional Documentation: supine to/from sit Assistive Device: HOB elevated, bed rails Sit to Supine, Level of [place]: maximal assist (25% patient effort), verbal cues [...] stand, bed to/from chair Chair-Bed, Level of [place]: moderate assist (50% patient effort), verbal cues require d Imw-Tcrqe-Dpz, Assistive Device: gait belt Sit-Stand, Level of [place]: moderate assist (50% patient effort), verbal cues require d Stand-Sit, Level of [place]: moderate assist (50% patient effort), verbal cues require d Cla-Hrpmh-Xhw, Assistive Device: 2 wheeled walker (FWW), gait [...] LTG Status new at 12/24/2019 0953 LTG [place] Level moderate assist (50% patient effort), verbal cues required at 12/23 0953 LTG Adaptive Equipment pattern layout worker, shoe horn, long handled, sock-aid [AE as needed] at 2019 0953 Toilet Transfer Goal Most Recent Value LTG Status new at 12/24/2019 0953 LTG [place] Level minimum assist (75% patient effort), verbal [...] HOB elevated Supine to Sit, Level of [place]: moderate assist (50% patient effort), verbal cues req uired Safety Issues: decreased use of arms for pushing/pulling, decreased use of legs for bridgin g/pushing Impairments: decreased flexibility, pain, impaired balance Transfers Additional Documentation: sit to/from stand Sit-Stand, Level of [place]: minimal assist (75% patient effort) Stand-Sit, Level of [place]: minimal assist (75% patient effort) Umd-Suobd-Jqt, Assistive Device: 2 wheeled walker (FWW) Maintain Weight Bearing Status: able to maintain weight bearing status Safety Issues: sequencing ability decreased Impairments: decreased flexibility, impaired balance, pain Gait Gait Comments: side stepping to recliner Level of [place]: minimal assist (75% patient effort) Assistive Device: [...] LTG Status new at 12/23/2019 1600 LTG [place] Level supervised at 12/23/2019 1600 LTG Assistive Device none at 12/23/2019 1600 All Transfers Goal Most Recent Value LTG Status new at 12/23/2019 1600 LTG [place] Level modified independent at 12/23/2019 1600 LTG Assistive Device 2 wheeled walker (FWW) at 12/23/2019 1600 Gait Goal Most Recent Value LTG Status new at 12/23/2019 1600 LTG [place] Level stand by assist at 12/23/2019 1600 [...] 118/54 PT Time Calculation Individual Start Time: 0802 Individual Stop Time: 0840 Individual Total Time: 38 PT Total Treatment [...] discharge planning concerns Services Anticipated at Discharge: senior living facility Equipment Used at Home: cane, straight, single point, 2 wheeled walker (FWW) Equipment Needed after Discharge: walker, standard Durable Medical Equipment Provider: Pharmacy/Medication Needs: other (see comments)([facility] in [place], [place]) Transportation Needs: agency transportation Initial Plan Anticipated Discharge Disposition: senior living facility Expected DC Date: other (see comments)(SNF [...] stated that he would like to go [facility] Swi ng bed if needed before going home. Cm called [facility] and received contact info - Idalia Garduno [phone]. Cm sent referral to [facility]. Pt stated that Deanna (daughter) edgardo harmon [...] (Range of Motion), stair training, strengthening, stretching, tristanian ball techniques, wheelchair management/propulsio n training Recommended [...] HOB elevated Supine to Sit, Level of [place]: moderate assist (50% patient effort) Sit to Supine, Level of [place]: maximal assist (25% patient effort) Safety Issues: decreased use of arms for pushing/pulling, decreased use of legs for bridgin g/pushing Impairments: decreased flexibility, impaired balance, pain Transfers Additional Documentation: sit to/from stand Sit-Stand, Level of [place]: minimal assist (75% patient effort) Stand-Sit, Level of [place]: minimal assist (75% patient effort) Vvl-Fbggz-Gjf, Assistive Device: 2 wheeled walker (FWW) Maintain [...] LTG Status new at 12/23/2019 1600 LTG [place] Level supervised at 12/23/2019 1600 LTG Assistive Device none at 12/23/2019 1600 All Transfers Goal Most Recent Value LTG Status new at 12/23/2019 1600 LTG [place] Level modified independent at 12/23/2019 1600 LTG Assistive Device 2 wheeled walker (FWW) at 12/23/2019 1600 Gait Goal Most Recent Value LTG Status new at 12/23/2019 1600 LTG [place] Level stand by assist at 12/23/2019 1600 LTG Assistive Device 2 wheeled walker (FWW) at 12/23/2019 1600 LTG Distance (feet) 50 at 12/23/2019 1600 [facility] - Chasity Alston RN - 12/23/2019 5:32 [...] RN at 2019 5:33 AM PDTPlan of Care - Miya Wilson RN - 12/22/2019 12: [...] Melquiades Baez DO - 12/22/2019 10:34 AM [facility] Orthop aedic and Sports Medicine Service: Orthopaedic [...] by: Melquiades Baez DO, 12/22/2019 10:35 AM [facility] lan of Care - Lise Chambers RN - 12/22/2019 12:00 AM PDTPain managed well [...] 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 EKG and Ches [...] day shift and every two hours on power and recovery shift engineer to monitor and medicate appropriately. 2. Staff [...] | | | | | | [place] [id number] | | | | | | [phone] | | | | | | | | +--------+---------+ + + + | 04/21/ | Office | Nephrology | Isiah Jade MD | | | 2019 | Visit | | [address] [facility] | | | | | | [address] | | | | | | [address] | | | | | | | | +--------+---------+ + + + | 05/07/ | Office | Cardiology | Charlee Oswald | | | 2019 | Visit | | [address] | | | | | | [address] | | | | | | [place] [address] | | | | | | [phone] | | | | | | | [...] + +--------+ + + + | *TERMED* [place] UPPER GI | Routin | 12/29/2019 | [...] | | POC | performed at [facility];[address] | | LABORATORY | | | | [address];[place], [place] | | | | | | [address] | | | | + + + + + + + + | Specimen | + + | | + + + + + + + | Performing | Address | City/State/Zipcode | Phone Number | | Organization | | | | + + + + + | [facility] | [address] | [place] [address] | [phone] | + + + + + POC Glucose (01/01/2020 6:29 AM PDT) + + + + + + | Component | Value | Ref Range | Performed | Pathologist | | | | | At | Signature | + + + + + + | Glucose, | 143 (H)Comment: Testing | 65 - 99 mg/dL | [facility] | | | POC | performed at [facility];[address] | | LABORATORY | | | | [address];[place] | | | | | | [address] | | | | + + + + + + + + | Specimen | + + | | + + + + + + + | Performing | Address | City/State/Zipcode | Phone Number | | Organization | | | | + + + + + | [facility] [facility] | [address] | [place] [address] | [phone] | + + + + + Basic [...] | 8.6 | 8.5 - 10.5 | [facility] | | | | | mg/dL | LABORATORY | | + + + + + + | Estimated | 23 (L)Comment: GFR <60: | >60 | [facility] | | | GFR | [...] | | | | | | MDRD [facility] traceable | | | | | | equation.Testing | | | | | | performed at [facility];88 | | | | | | [facility];[place], [place] | | | | | | [address] | | | | + + + + + + + + | Specimen | + + | Blood | + + + + + + + | Performing | Address | City/State/Zipcode | Phone Number | | Organization | | | | + + + + + | [facility] | [address] | [place] [address] | [phone] | + + + + + CBC [...] | | Absolute | performed at [facility];[address] | K/uL | LABORATORY | | | | [address];[place] | | | | | | [address] | | | | + + + + + + + + | Specimen | + + | Blood | + + + + + + + | Performing | Address | City/State/Zipcode | Phone Number | | Organization | | | | + + + + + | [facility] | [address] | [place] [address] | [phone] | + + + + + POC [...] | | POC | performed at [facility];888 | | LABORATORY | | | | [address];[place] | | | | | | [address] | | | | + + + + + + + + | Specimen | + + | | + + + + + + + | Performing | Address | City/State/Zipcode | Phone Number | | Organization | | | | + + + + + | [facility] | [address] | [place] [address] | [phone] | + + + + + POC [...] | | POC | performed at [facility];888 | | LABORATORY | | | | [address];[place], [place] | | | | | | [address] | | | | + + + + + + + + | Specimen | + + | | + + + + + + + | Performing | Address | City/State/Zipcode | Phone Number | | Organization | | | | + + + + + | [facility] | [address] [facility] | [place] [address] | [phone] | + + + + + POC [...] | | POC | performed at [facility];[address] | | LABORATORY | | | | [address];[place] | | | | | | [address] | | | | + + + + + + + + | Specimen | + + | | + + + + + + + | Performing | Address | City/State/Zipcode | Phone Number | | Organization | | | | + + + + + | [facility] | [address] | [place] [address] | [phone] | + + + + + POC Glucose (12/31/2019 6:36 AM PDT) + + + + + + | Component | Value | Ref Range | Performed | Pathologist | | | | | At | Signature | + + + + + + | Glucose, | 154 (H)Comment: Testing | 65 - 99 mg/dL | [facility] | | | POC | performed at [facility];[address] | | LABORATORY | | | | [address];[place] | | | | | | [address] | | | | + + + + + + + + | Specimen | + + | | + + + + + + + | Performing | Address | City/State/Zipcode | Phone Number | | Organization | | | | + + + + + | [facility] | [address] | [place] [address] | [phone] | + + + + + Basic [...] | 8.5 | 8.5 - 10.5 | [facility] | | | | | mg/dL | LABORATORY | | + + + + + + | Estimated | 18 (L)Comment: GFR <60: | >60 | [facility] | | | GFR | [...] | | | | | | MDRD [facility] traceable | | | | | | equation.Testing | | | | | | performed at [facility], [address] | | | | | | [facility], | | | | | | [place] [address] | | | | + + + + + + + + | Specimen | + + | Blood | + + + + + + + | Performing | Address | City/State/Zipcode | Phone Number | | Organization | | | | + + + + + | [facility] | [address] | [place] [address] | [phone] | + + + + + CBC [...] | | | Absolute | performed at [facility], [address] | K/uL | LABORATORY | | | | [address], | | | | | | [place] [address] | | | | + + + + + + + + | Specimen | + + | Blood | + + + + + + + | Performing | Address | City/State/Zipcode | Phone Number | | Organization | | | | + + + + + | [facility] | [address] | [place] [address] | [phone] | + + + + + POC Glucose (12/30/2019 8:55 PM PDT) + + + + + + | Component | Value | Ref Range | Performed | Pathologist | | | | | At | Signature | + + + + + + | Glucose, | 192 (H)Comment: Testing | 65 - 99 mg/dL | [facility] | | | POC | performed at [facility];[address] | | LABORATORY | | | | [address];[place] | | | | | | [address] | | | | + + + + + + + + | Specimen | + + | | + + + + + + + | Performing | Address | City/State/Zipcode | Phone Number | | Organization | | | | + + + + + | [facility] | [address] | [place] [address] | [phone] | + + + + + POC Glucose (12/30/2019 4:11 PM PDT) + + + + + + | Component | Value | Ref Range | Performed | Pathologist | | | | | At | Signature | + + + + + + | Glucose, | 130 (H)Comment: Testing | 65 - 99 mg/dL | [facility] | | | POC | performed at [facility];888 | | LABORATORY | | | | [address];[place], [place] | | | | | | [address] | | | | + + + + + + + + | Specimen | + + | | + + + + + + + | Performing | Address | City/State/Zipcode | Phone Number | | Organization | | | | + + + + + | [facility] | [address] | [place] [address] | [phone] | + + + + + POC [...] | | POC | performed at [facility];888 | | LABORATORY | | | | [address];[place] | | | | | | [address] | | | | + + + + + + + + | Specimen | + + | | + + + + + + + | Performing | Address | City/State/Zipcode | Phone Number | | Organization | | | | + + + + + | [facility] | [address] | [place] [address] | [phone] | + + + + + Basic [...] 20 (L)Comment: GFR <60: | >60 | [facility] | | | GFR | [...] | | | | | | MDRD [facility] traceable | | | | | | equation.Testing | | | | | | performed at [facility];[address] | | | | | | [facility];[place], [place] | | | | | | [address] | | | | + + + + + + + + | Specimen | + + | Blood | + + + + + + + | Performing | Address | City/State/Zipcode | Phone Number | | Organization | | | | + + + + + | [facility] | [address] | [place] [address] | [phone] | + + + + + POC [...] | | POC | performed at [facility];888 | | LABORATORY | | | | [address];[place] | | | | | | [address] | | | | + + + + + + + + | Specimen | + + | | + + + + + + + | Performing | Address | City/State/Zipcode | Phone Number | | Organization | | | | + + + + + | [facility] | [address] | [place] [address] | [phone] | + + + + + CBC [...] | | Absolute | performed at [facility];[address] | K/uL | LABORATORY | | | | [address];[place] | | | | | | [address] | | | | + + + + + + + + | Specimen | + + | Blood | + + + + + + + | Performing | Address | City/State/Zipcode | Phone Number | | Organization | | | | + + + + + | [facility] | [address] | [place] [address] | [phone] | + + + + + POC [...] | | POC | performed at [facility];[address] | | LABORATORY | | | | [address];[place] | | | | | | [address] | | | | + + + + + + + + | Specimen | + + | | + + + + + + + | Performing | Address | City/State/Zipcode | Phone Number | | Organization | | | | + + + + + | [facility] | [address] | [place] [address] | [phone] | + + + + + Hemoglobin [...] Testing | 39.0 - 50.0 % | [facility] | | | | performed at [facility];888 | | LABORATORY | | | | [address];[place] | | | | | | [address] | | | | + + + + + + + + | Specimen | + + | Blood | + + + + + + + | Performing | Address | City/State/Zipcode | Phone Number | | Organization | | | | + + + + + | [facility] | [address] | [place] [address] | [phone] | + + + + + POC [...] | | POC | performed at [facility];[address] | | LABORATORY | | | | [address];[place], [place] | | | | | | [address] | | | | + + + + + + + + | Specimen | + + | | + + + + + + + | Performing | Address | City/State/Zipcode | Phone Number | | Organization | | | | + + + + + | [facility] | [address] | [place] [address] | [phone] | + + + + + Hemoglobin [...] CORDELL | | | | performed at [facility];[address] | | LABORATORY | | | | [address];[place], [place] | | | | | | [address] | | | | + + + + + + + + | Specimen | + + | Blood | + + + + + + + | Performing | Address | City/State/Zipcode | Phone Number | | Organization | | | | + + + + + | [facility] | [address] | [place] [address] | [phone] | + + + + + POC [...] | | POC | performed at [facility];[address] | | LABORATORY | | | | [address];[place], [place] | | | | | | [address] | | | | + + + + + + + + | Specimen | + + | | + + + + + + + | Performing | Address | City/State/Zipcode | Phone Number | | Organization | | | | + + + + + | [facility] | [address] | [place] [address] | [phone] | + + + + + POC Glucose (12/29/2019 11:06 AM PDT) + + + + + + | Component | Value | Ref Range | Performed | Pathologist | | | | | At | Signature | + + + + + + | Glucose, | 205 (H)Comment: Testing | 65 - 99 mg/dL | [facility] | | | POC | performed at [facility];[address] | | LABORATORY | | | | [address];[place] | | | | | | [address] | | | | + + + + + + + + | Specimen | + + | | + + + + + + + | Performing | Address | City/State/Zipcode | Phone Number | | Organization | | | | + + + + + | [facility] | [address] | [place] [address] | [phone] | + + + + + Surgical [...] | | technical component was performed by [facility], [address] [place] [address] | | | [place] [address] (Heavy Line Technician: Padmini Sellers MD; CLIA# | | | [id number]). Professional interpretation was performed by[employer] | | | [employer], [address], | | | [place] [address] (Heavy Line Technician: Oscar Maynard M.D.; CLIA#: | | | [id number]). Diagnostician: Padmini Sellers | | | MDPathologistElectronically [...] | |The technical component was performed by [facility], [address] [place] [address] (Heavy Line Technician: Padmini Sellers MD; CLIA# [id number]). Professional interpretation was performed by | | |[facility], [address] [address] (Heavy Line Technician: Oscar Maynard M.D.; CLIA#: [id number]). | | | | | |Diagnostician: Padmini [...] Performed At | + + + | [facility] | [facility] | | [facility] | [facility] | | CenterGastroenterology | | | Patient Name: Andres Guzmán | | | Procedure Date: 12/29/2019 8:36 AMMRN: [id number] | | | of : 1930 | [...] the anesthesiologist and the | | | set up mold technician in the pre-procedure area in the [...] | | | with Gold probe 7 [place] x 5 pulses was successful with | [...] | | | AMNumber of Addenda: 0 [facility] | | | - Check hemoglobin q 6 hours for one day. | | | | | | | | |LAMONT HERNANDEZ MD | | |12/29/2019 10:19:54 AM | | |This report has been signed electronically. | | | | | |Note Initiated On: 12/29/2019 8:36 AM | | |Number of Addenda: 0 | | | | | | [facility] | | + + + + +---------+ [...] | | | | performed at [facility];888 | | LABORATORY | | | | [address];[place] | | | | | | [address] | | | | + + + + + + + + | Specimen | + + | Blood | + + + + + + + | Performing | Address | City/State/Zipcode | Phone Number | | Organization | | | | + + + + + | [facility] | [address] | [place] [address] | [phone] | + + + + + POC Glucose (12/29/2019 6:06 AM PDT) + + + + + + | Component | Value | Ref Range | Performed | Pathologist | | | | | At | Signature | + + + + + + | Glucose, | 146 (H)Comment: Testing | 65 - 99 mg/dL | [facility] | | | POC | performed at [facility];888 | | LABORATORY | | | | [address];[place], [place] | | | | | | [address] | | | | + + + + + + + + | Specimen | + + | | + + + + + + + | Performing | Address | City/State/Zipcode | Phone Number | | Organization | | | | + + + + + | [facility] | [address] | [place] [address] | [phone] | + + + + + CBC [...] | | Absolute | performed at [facility];888 | K/uL | LABORATORY | | | | [address];[place] | | | | | | [address] | | | | + + + + + + + + | Specimen | + + | Blood | + + + + + + + | Performing | Address | City/State/Zipcode | Phone Number | | Organization | | | | + + + + + | [facility] | [address] | [place] [address] | [phone] | + + + + + Protime INR (12/29/2019 3:53 AM PDT) + + + + + + | Component | Value | Ref Range | Performed | Pathologist | | | | | At | Signature | + + + + + + | INR | 1.3Comment: REFERENCE | | KR | | | | RANGE:0.9 - 1.2 [...] | | | | performed at [facility] | | | | | | [facility];[place], [place] | | | | | | [address] | | | | + + + + + + + + | Specimen | + + | Blood | + + + + + + + | Performing | Address | City/State/Zipcode | Phone Number | | Organization | | | | + + + + + | [facility] | [address] | [place] [address] | [phone] | + + + + + Basic [...] | | | | performed at [facility];[address] | | | | | | [facility];[place], [place] | | | | | | [address] | | | | + + + + + + + + | Specimen | + + | Blood | + + + + + + + | Performing | Address | City/State/Zipcode | Phone Number | | Organization | | | | + + + + + | [facility] | [address] | [place] [address] | [phone] | + + + + + POC [...] | | POC | performed at [facility];[address] | | LABORATORY | | | | [address];[place], [place] | | | | | | [address] | | | | + + + + + + + + | Specimen | + + | | + + + + + + + | Performing | Address | City/State/Zipcode | Phone Number | | Organization | | | | + + + + + | [facility] | [address] | [place] [address] | [phone] | + + + + + Hemoglobin [...] | | | | performed at [facility];[address] | | LABORATORY | | | | [address];[place], [place] | | | | | | [address] | | | | + + + + + + + + | Specimen | + + | Blood | + + + + + + + | Performing | Address | City/State/Zipcode | Phone Number | | Organization | | | | + + + + + | [facility] | [address] | [place] [address] | [phone] | + + + + + POC [...] | | POC | performed at [facility];888 | | LABORATORY | | | | [address];[place], [place] | | | | | | [address] | | | | + + + + + + + + | Specimen | + + | | + + + + + + + | Performing | Address | City/State/Zipcode | Phone Number | | Organization | | | | + + + + + | [facility] | [address] | [place] [address] | [phone] | + + + + + Fecal [...] | LABORATORY | | | | [facility];[address];[place] [address] | | | | + + + + + + + + | Specimen | + + | Stool - Stool | | specimen (specimen) | + + + + + + + | Performing | Address | City/State/Zipcode | Phone Number | | Organization | | | | + + + + + | [facility] | [address] | [place] [address] | [phone] | + + + + + POC Glucose (12/28/2019 4:32 PM PDT) + + + + + + | Component | Value | Ref Range | Performed | Pathologist | | | | | At | Signature | + + + + + + | Glucose, | 124 (H)Comment: Testing | 65 - 99 mg/dL | [facility] | | | POC | performed at [facility];[address] | | LABORATORY | | | | [address];[place] | | | | | | [address] | | | | + + + + + + + + | Specimen | + + | | + + + + + + + | Performing | Address | City/State/Zipcode | Phone Number | | Organization | | | | + + + + + | [facility] | [address] | [place] [address] | [phone] | + + + + + Hemoglobin [...] | | | | performed at [facility];[address] | | LABORATORY | | | | [address];[place], [place] | | | | | | [address] | | | | + + + + + + + + | Specimen | + + | Blood | + + + + + + + | Performing | Address | City/State/Zipcode | Phone Number | | Organization | | | | + + + + + | [facility] | [address] | [place] [address] | [phone] | + + + + + POC Glucose (12/28/2019 11:59 AM PDT) + + + + + + | Component | Value | Ref Range | Performed | Pathologist | | | | | At | Signature | + + + + + + | Glucose, | 163 (H)Comment: Testing | 65 - 99 mg/dL | [facility] | | | POC | performed at [facility];[address] | | LABORATORY | | | | [address];[place] | | | | | | [address] | | | | + + + + + + + + | Specimen | + + | | + + + + + + + | Performing | Address | City/State/Zipcode | Phone Number | | Organization | | | | + + + + + | [facility] | [address] | [place] [address] | [phone] | + + + + + POC [...] | | POC | performed at [facility];[address] | | LABORATORY | | | | [address];[place], [place] | | | | | | [address] | | | | + + + + + + + + | Specimen | + + | | + + + + + + + | Performing | Address | City/State/Zipcode | Phone Number | | Organization | | | | + + + + + | [facility] | [address] | [place] [address] | [phone] | + + + + + CBC [...] | | | Absolute | performed at [facility], [address] | K/uL | LABORATORY | | | | [address], | | | | | | [place] [address] | | | | + + + + + + + + | Specimen | + + | Blood | + + + + + + + | Performing | Address | City/State/Zipcode | Phone Number | | Organization | | | | + + + + + | [facility] | [address] | [place] [address] | [phone] | + + + + + Basic [...] | | | | | performed at [facility], [address] | | | | | | [facility], | | | | | | [place] [address] | | | | + + + + + + + + | Specimen | + + | Blood | + + + + + + + | Performing | Address | City/State/Zipcode | Phone Number | | Organization | | | | + + + + + | [facility] | [address] | [place] [address] | [phone] | + + + + + POC [...] | | POC | performed at [facility];[address] | | LABORATORY | | | | [address];[place], [place] | | | | | | [address] | | | | + + + + + + + + | Specimen | + + | | + + + + + + + | Performing | Address | City/State/Zipcode | Phone Number | | Organization | | | | + + + + + | [facility] | [address] | [place] [address] | [phone] | + + + + + POC [...] | | POC | performed at [facility];[address] | | LABORATORY | | | | [address];[place] | | | | | | [address] | | | | + + + + + + + + | Specimen | + + | | + + + + + + + | Performing | Address | City/State/Zipcode | Phone Number | | Organization | | | | + + + + + | [facility] | [address] | [place] [address] | [phone] | + + + + + Red [...] | [facility] | | | COMMENT | [facility];[address] | | LABORATORY | | | | [address];[place] [address] | | | | + + + + + + + + | Specimen | + + | | + + + + + + + | Performing | Address | City/State/Zipcode | Phone Number | | Organization | | | | + + + + + | [facility] | [address] | [place] [address] | [phone] | + + + + + Type [...] + + + | BB BAND | [id number] | | [facility] | | | | | | LABORATORY | | + + + + + + | UNIT # | [id number] | | [facility] | | | | [...] + + + | UNIT # | [id number] | | [facility] | | | | [...] | | RESULT | performed at [facility];[address] | | LABORATORY | | | | [address];[place] | | | | | | [address] | | | | + + + + + + + + | Specimen | + + | Blood | + + + + + + + | Performing | Address | City/State/Zipcode | Phone Number | | Organization | | | | + + + + + | [facility] | [address] | [place] [address] | [phone] | + + + + + POC [...] | | POC | performed at [facility];[address] | | LABORATORY | | | | [address];[place], [place] | | | | | | [address] | | | | + + + + + + + + | Specimen | + + | | + + + + + + + | Performing | Address | City/State/Zipcode | Phone Number | | Organization | | | | + + + + + | [facility] | [address] | [place] [address] | [phone] | + + + + + CBC [...] 0.02Comment: Testing | 0.00 - 0.10 | [facility] | | | Absolute | performed at [facility], [address] | K/uL | LABORATORY | | | | [address], | | | | | | [place] [address] | | | | + + + + + + + + | Specimen | + + | | + + + + + + + | Performing | Address | City/State/Zipcode | Phone Number | | Organization | | | | + + + + + | [facility] | [address] | [place] [address] | [phone] | + + + + + Procalcitonin [...] | | | | | at [facility];[address] [place] [address] | | | | | | [facility];[place] [address] | | | | + + + + + + + + | Specimen | + + | Blood | + + + + + + + | Performing | Address | City/State/Zipcode | Phone Number | | Organization | | | | + + + + + | [facility] | [address] | [place] [address] | [phone] | + + + + + Basic [...] | | | | | | MDRD [facility] traceable | | | | | | equation.Testing | | | | | | performed at [facility], [address] | | | | | | [facility], | | | | | | [place] [address] | | | | + + + + + + + + | Specimen | + + | Blood | + + + + + + + | Performing | Address | City/State/Zipcode | Phone Number | | Organization | | | | + + + + + | [facility] | [address] | [place] [address] | [phone] | + + + + + Vitamin [...] | | | | defined by the [place] | | | | | | [facility] and an | | | | | [...] IOM | | | | | | ([place] of [employer]). | | | | | | 2009. Dietary reference | | | | | | intakes for calcium | | | | | | and D. [place]: | | | | | | The National Academies | | | | | | Press.2. Hernan DENTON, | | | | | | Sushil GIRON, | | | | | | Tri [...] Hugh; | | | | | | [phone].Testing | | | | | | performed at [facility], | | | | | | [address], | | | | | | [facility] [address] | | | | + + + + + + + + | Specimen | + + | Blood | + + + + + + + | Performing | Address | City/State/Zipcode | Phone Number | | Organization | | | | + + + + + | [facility] | [address] | [place] [address] | [phone] | + + + + + Potassium (12/27/2019 12:08 AM PDT) + + + + + + | Component | Value | Ref Range | Performed | Pathologist | | | | | At | Signature | + + + + + + | K | 4.0Comment: Testing | 3.5 - 4.9 | [facility] | | | | performed at [facility];[address] | mmol/L | LABORATORY | | | | [address];[place] | | | | | | [address] | | | | + + + + + + + + | Specimen | + + | Blood | + + + + + + + | Performing | Address | City/State/Zipcode | Phone Number | | Organization | | | | + + + + + | [facility] | [address] | [place] [address] | [phone] | + + + + + Magnesium (12/27/2019 12:08 AM PDT) + + + + + + | Component | Value | Ref Range | Performed | Pathologist | | | | | At | Signature | + + + + + + | Magnesium | 2.2Comment: Testing | 1.7 - 2.4 mg/dL | [facility] | | | | performed at [facility];[address] | | LABORATORY | | | | [address];[place], [place] | | | | | | [address] | | | | + + + + + + + + | Specimen | + + | Blood | + + + + + + + | Performing | Address | City/State/Zipcode | Phone Number | | Organization | | | | + + + + + | [facility] | [address] | [place], [place] [address] | [phone] | + + + + + ECG [...] | | | | | YANIV ROONEY (1821) | | | | | | on [...] | | POC | performed at [facility];888 | | LABORATORY | | | | [address];[place] | | | | | | [address] | | | | + + + + + + + + | Specimen | + + | | + + + + + + + | Performing | Address | City/State/Zipcode | Phone Number | | Organization | | | | + + + + + | [facility] | [address] | [place] [address] | [phone] | + + + + + POC Glucose (12/26/2019 5:02 PM PDT) + + + + + + | Component | Value | Ref Range | Performed | Pathologist | | | | | At | Signature | + + + + + + | Glucose, | 154 (H)Comment: Testing | 65 - 99 mg/dL | [facility] | | | POC | performed at [facility];888 | | LABORATORY | | | | [address];[place], [place] | | | | | | [address] | | | | + + + + + + + + | Specimen | + + | | + + + + + + + | Performing | Address | City/State/Zipcode | Phone Number | | Organization | | | | + + + + + | [facility] | [address] | [place] [address] | [phone] | + + + + + Complement [...] | | | COMPLEMENT | performed at [facility], | | LABORATORY | | | | [address], | | | | | | [place] [address] | | | | + + + + + + + + | Specimen | + + | | + + + + + + + | Performing | Address | City/State/Zipcode | Phone Number | | Organization | | | | + + + + + | [facility] | [address] | [place] [address] | [phone] | + + + + + Complement C3 Ag (12/26/2019 12:33 PM PDT) + + + + + + | Component | Value | Ref Range | Performed | Pathologist | | | | | At | Signature | + + + + + + | C3 | 53 (L)Comment: Testing | 82 - 167 mg/dL | [facility] | | | COMPLEMENT | performed at [facility], | | LABORATORY | | | | [address], | | | | | | [facility] [address] | | | | + + + + + + + + | Specimen | + + | | + + + + + + + | Performing | Address | City/State/Zipcode | Phone Number | | Organization | | | | + + + + + | [facility] | [address] | [place] [address] | [phone] | + + + + + POC Glucose (12/26/2019 11:15 AM PDT) + + + + + + | Component | Value | Ref Range | Performed | Pathologist | | | | | At | Signature | + + + + + + | Glucose, | 161 (H)Comment: Testing | 65 - 99 mg/dL | [facility] | | | POC | performed at [facility];888 | | LABORATORY | | | | [address];[place] | | | | | | [address] | | | | + + + + + + + + | Specimen | + + | | + + + + + + + | Performing | Address | City/State/Zipcode | Phone Number | | Organization | | | | + + + + + | [facility] | [address] | [place] [address] | [phone] | + + + + + POC [...] | | POC | performed at [facility];[address] | | LABORATORY | | | | [address];[place], [place] | | | | | | [address] | | | | + + + + + + + + | Specimen | + + | | + + + + + + + | Performing | Address | City/State/Zipcode | Phone Number | | Organization | | | | + + + + + | [facility] | [address] | [place] [address] | [phone] | + + + + + Parathyroid Hormone, Intraoperative (12/26/2019 4:25 AM PDT) + + + + + + | Component | Value | Ref Range | Performed | Pathologist | | | | | At | Signature | + + + + + + | PTH Intact | 167.0 (H)Comment: | 8.7 - 79.6 | [facility] | | | | Testing performed at | pg/mL | LABORATORY | | | | [facility];[address] | | | | [address];[place] [address] | | | | + + + + + + + + | Specimen | + + | | + + + + + + + | Performing | Address | City/State/Zipcode | Phone Number | | Organization | | | | + + + + + | [facility] | [address] | [place] [address] | [phone] | + + + + + Renal [...] | | | | | performed at [facility], [address] | | | | | | [facility], | | | | | | [place] [address] | | | | + + + + + + + + | Specimen | + + | Blood | + + + + + + + | Performing | Address | City/State/Zipcode | Phone Number | | Organization | | | | + + + + + | [facility] | [address] | [place] [address] | [phone] | + + + + + POC [...] | | POC | performed at [facility];888 | | LABORATORY | | | | [address];[place] | | | | | | [address] | | | | + + + + + + + + | Specimen | + + | | + + + + + + + | Performing | Address | City/State/Zipcode | Phone Number | | Organization | | | | + + + + + | [facility] | [address] | [place] [address] | [phone] | + + + + + POC Glucose (12/25/2019 5:13 PM PDT) + + + + + + | Component | Value | Ref Range | Performed | Pathologist | | | | | At | Signature | + + + + + + | Glucose, | 133 (H)Comment: Testing | 65 - 99 mg/dL | [facility] | | | POC | performed at [facility];[address] | | LABORATORY | | | | [address];[place] | | | | | | [address] | | | | + + + + + + + + | Specimen | + + | | + + + + + + + | Performing | Address | City/State/Zipcode | Phone Number | | Organization | | | | + + + + + | [facility] | [address] | [place] [address] | [phone] | + + + + + ECHO [...] | | POC | performed at [facility];888 | | LABORATORY | | | | [address];[place], [place] | | | | | | [address] | | | | + + + + + + + + | Specimen | + + | | + + + + + + + | Performing | Address | City/State/Zipcode | Phone Number | | Organization | | | | + + + + + | [facility] | [address] | [place] [address] | [phone] | + + + + + POC [...] | | POC | performed at [facility];[address] | | LABORATORY | | | | [address];[place] | | | | | | [address] | | | | + + + + + + + + | Specimen | + + | | + + + + + + + | Performing | Address | City/State/Zipcode | Phone Number | | Organization | | | | + + + + + | [facility] | [address] | [place] [address] | [phone] | + + + + + CK Total (12/25/2019 4:25 AM PDT) + + + + + + | Component | Value | Ref Range | Performed | Pathologist | | | | | At | Signature | + + + + + + | CK TOTAL | 104Comment: Testing | 55 - 400 U/L | [facility] | | | | performed at [facility];[address] | | LABORATORY | | | | [address];[place] | | | | | | [address] | | | | + + + + + + + + | Specimen | + + | Blood | + + + + + + + | Performing | Address | City/State/Zipcode | Phone Number | | Organization | | | | + + + + + | [facility] | [address] | [place] [address] | [phone] | + + + + + Renal [...] 5.1 (H) | 3.5 - 4.9 | [place] | | | | | [...] (L)Comment: GFR <60: | >60 | [facility] | | | GFR | [...] | | | | | | MDRD [facility] traceable | | | | | | equation.Testing | | | | | | performed at [facility], [address] | | | | | | [facility], | | | | | | [place] [address] | | | | + + + + + + + + | Specimen | + + | Blood | + + + + + + + | Performing | Address | City/State/Zipcode | Phone Number | | Organization | | | | + + + + + | [facility] | [address] | [place] [address] | [phone] | + + + + + Cytoplasmic [...] | | | | | with both [place]-3 and | | | | | | [...] | | | | | | [address] [facility], | | | | | | [facility] [address] | | | | + + + + + + + + | Specimen | + + | Blood | + + + + + + + | Performing | Address | City/State/Zipcode | Phone Number | | Organization | | | | + + + + + | [facility] | [address] | [place] [address] | [phone] | + + + + + Sedimentation [...] | | | | | [place] [address] | | | | + + + + + + + + | Specimen | + + | Blood | + + + + + + + | Performing | Address | City/State/Zipcode | Phone Number | | Organization | | | | + + + + + | [facility] | [address] | [place] [address] | [phone] | + + + + + Immunoglobulin, Free Light Chain (12/25/2019 4:22 AM PDT) + + + + + + | Component | Value | Ref Range | Performed | Pathologist | | | | | At | Signature | + + + + + + | [place] Free | 121.2 (H) | 3.3 - 19.4 mg/L | [facility] | | | Light | | | LABORATORY | | | Chain, | | | | | | Serum | | | | | + + + + + + | LAMBDA | 96.7 (H) | 5.7 - 26.3 mg/L | [facility] | | | QUANT FREE | | | LABORATORY | | | LIGHT | | | | | | CHAINS | | | | | + + + + + + | [place]ambd | 1.25Comment: Testing | 0.26 - 1.65 | [facility] | | | a Free | performed at [facility] | | LABORATORY | | | Light Chain | [address] | | | | | Ratio | [place] [address] | | | | + + + + + + + + | Specimen | + + | Blood | + + + + + + + | Performing | Address | City/State/Zipcode | Phone Number | | Organization | | | | + + + + + | [facility] | [address] | [place] [address] | [phone] | + + + + + Glomerular [...] | | | | | | [facility], [address] [place] [address] | | | | | | [place] | | | | | | [address] | | | | + + + + + + + + | Specimen | + + | Blood | + + + + + + + | Performing | Address | City/State/Zipcode | Phone Number | | Organization | | | | + + + + + | [facility] | [address] | [place] [address] | [phone] | + + + + + Hepatitis [...] | | | | | | 0.9[facility] recommends | | | | | | that a positive HCV | | | | | | antibody resultbe | | | | | | followed up with a HCV | | | | | | Nucleic Acid | | | | | | Amplificationtest | | | | | | ([id number]).Testing | | | | | | performed at [facility], | | | | | | [address], | | | | | | [facility] [address] | | | | + + + + + + + + | Specimen | + + | Blood | + + + + + + + | Performing | Address | City/State/Zipcode | Phone Number | | Organization | | | | + + + + + | [facility] | [address] | [place] [address] | [phone] | + + + + + CK [...] | | | | performed at [facility] | | LABORATORY | | | | [facility];[place], [place] | | | | | | [address] | | | | + + + + + + + + | Specimen | + + | Blood | + + + + + + + | Performing | Address | City/State/Zipcode | Phone Number | | Organization | | | | + + + + + | [facility] | [address] | [place] [address] | [phone] | + + + + + Lactate Dehydrogenase (12/25/2019 4:22 AM PDT) + + + + + + | Component | Value | Ref Range | Performed | Pathologist | | | | | At | Signature | + + + + + + | LDH TOTAL | 154Comment: Testing | 120 - 246 U/L | [facility] | | | | performed at [facility];[address] | | LABORATORY | | | | [address];[place] | | | | | | [address] | | | | + + + + + + + + | Specimen | + + | Blood | + + + + + + + | Performing | Address | City/State/Zipcode | Phone Number | | Organization | | | | + + + + + | [facility] | [address] | [place] [address] | [phone] | + + + + + Magnesium (12/25/2019 4:22 AM PDT) + + + + + + | Component | Value | Ref Range | Performed | Pathologist | | | | | At | Signature | + + + + + + | Magnesium | 2.5 (H)Comment: Testing | 1.7 - 2.4 mg/dL | [facility] | | | | performed at [facility], [address] | | LABORATORY | | | | [address], | | | | | | [place] [address] | | | | + + + + + + + + | Specimen | + + | Blood | + + + + + + + | Performing | Address | City/State/Zipcode | Phone Number | | Organization | | | | + + + + + | [facility] | [address] | [place] [address] | [phone] | + + + + + Protein, [...] LABORATORY | | | | performed at [facility], [address] | | | | | [address], | | | | | | [place] [address] | | | | + + + + + + + + | Specimen | + + | | + + + + + + + | Performing | Address | City/State/Zipcode | Phone Number | | Organization | | | | + + + + + | [facility] | [address] | [place] [address] | [phone] | + + + + + Creatinine, Urine, Random (12/25/2019 12:01 AM PDT) + + + + + + | Component | Value | Ref Range | Performed | Pathologist | | | | | At | Signature | + + + + + + | Creatinine, | 139.0Comment: NO NORMAL | mg/dL | [facility] | | | random | RANGE ESTABLISHEDTesting | | LABORATORY | | | urine | performed at [facility], [address] | | | | | [address], | | | | | | [place] [address] | | | | + + + + + + + + | Specimen | + + | | + + + + + + + | Performing | Address | City/State/Zipcode | Phone Number | | Organization | | | | + + + + + | [facility] | [address] | [place] [address] | [phone] | + + + + + Protein/Creatinine Ratio, Urine (12/25/2019 12:01 AM PDT) + + + + + + | Component | Value | Ref Range | Performed | Pathologist | | | | | At | Signature | + + + + + + | PRO/CREA | 0.942Comment: Testing | | [facility] | | | RATIO,URINE | performed at [facility], [address] | | LABORATORY | | | | [address], | | | | | | [place] [address] | | | | + + + + + + + + | Specimen | + + | Urine | + + + + + + + | Performing | Address | City/State/Zipcode | Phone Number | | Organization | | | | + + + + + | [facility] | [address] | [place] [address] | [phone] | + + + + + POC [...] | | POC | performed at [facility];[address] | | LABORATORY | | | | [address];[place], [place] | | | | | | [address] | | | | + + + + + + + + | Specimen | + + | | + + + + + + + | Performing | Address | City/State/Zipcode | Phone Number | | Organization | | | | + + + + + | [facility] | [address] | [place] [address] | [phone] | + + + + + POC [...] | | POC | performed at [facility];[address] | | LABORATORY | | | | [address];[place], [place] | | | | | | [address] | | | | + + + + + + + + | Specimen | + + | | + + + + + + + | Performing | Address | City/State/Zipcode | Phone Number | | Organization | | | | + + + + + | [facility] | [address] [facility] | [place] [address] | [phone] | + + + + + ECG [...] | | | | | | determined byDariustt, it | | | | | | [...] | | Arterial, | performed at [facility];[address] | | LABORATORY | | | POC | [address];[place], [place] | | | | | | [address] | | | | + + + + + + + + | Specimen | + + | | + + + + + + + | Performing | Address | City/State/Zipcode | Phone Number | | Organization | | | | + + + + + | [facility] | [address] | [place] [address] | [phone] | + + + + + Coronavirus (COVID-19) NAAT (12/24/2019 1:10 PM PDT) + + + + + + | Component | Value | Ref Range | Performed | Pathologist | | | | | At | Signature | + + + + + + | SARS-CoV-2, | NEGATIVEComment: Testing | NEG | [facility] | | | NAAT | performed at [facility];[address] | | LABORATORY | | | (COVID-19) | [address];[place], [place] | | | | | | [address] | | | | + + + + + + + + | Specimen | + + | Tissue - Entire | | nasopharynx (body | | structure) | + + + + + + + | Performing | Address | City/State/Zipcode | Phone Number | | Organization | | | | + + + + + | [facility] | [address] | [place] [address] | [phone] | + + + + + Culture, [...] | | LABORATORY | | | | Blvd;[place] [address] | | | | + + + + + + | RESULT | NO GROWTH 6 DAYS | | [facility] | | | | | | LABORATORY | | + + + + + + | RESULT | Testing performed at | | [facility] | | | | [facility], [address] | | LABORATORY | | | | [place], [place] | | | | | | [address]Ysrmtlo: Testing | | | | | | performed at [facility], [address] | | | | | [address], [place], [place] | | | | | | [address] | | | | + + + + + + + + | Specimen | + + | Blood - Peripheral | | blood specimen | | (specimen) | + + + + + + + | Performing | Address | City/State/Zipcode | Phone Number | | Organization | | | | + + + + + | [facility] | [address] | [place] [address] | [phone] | + + + + + Culture, [...] | | LABORATORY | | | | Blvd;[place] [address] | | | | + + + + + + | RESULT | NO GROWTH 6 DAYS | | [facility] | | | | | | LABORATORY | | + + + + + + | RESULT | Testing performed at | | [facility] | | | | [facility], [address] | | LABORATORY | | | | [place] | | | | | | [address]Iwrnsbh: Testing | | | | | | performed at [facility], [address] | | | | | | [address], [place], [place] | | | | | | [address] | | | | + + + [...] [facility] | [address] | [place] [address] | [phone] | + + + + + Urinalysis [...] - 1.030 | [facility] | | | [place], | | | LABORATORY | | | [...] | 1+ (A)Comment: Testing | NONE | [facility] | | | Urine | performed at [facility], [address] | | LABORATORY | | | | [address], | | | | | | [place] [address] | | | | + + + [...] + + + + + | [facility] | [address] | [place] [address] | [phone] | + + + + + Sodium, [...] | | | urine | performed at [facility], [address] | | | | | | [address], | | | | | | [place] [address] | | | | + + + [...] + + + + + | [facility] | [address] | [place] [address] | [phone] | + + + + + Creatinine, Urine, Random (12/24/2019 12:45 PM PDT) + + + + + + | Component | Value | Ref Range | Performed | Pathologist | | | | | At | Signature | + + + + + + | Creatinine, | 70.0Comment: NO NORMAL | mg/dL | [facility] | | | random | RANGE ESTABLISHEDTesting | | LABORATORY | | | urine | performed at [facility], [address] | | | | | [address] [facility], | | | | | | [place] [address] | | | | + + + [...] + + + + + | [facility] | [address] | [place] [address] | [phone] | + + + + + Lactic Acid (12/24/2019 12:27 PM PDT) + + + + + + | Component | Value | Ref Range | Performed | Pathologist | | | | | At | Signature | + + + + + + | Lactate, | 1.6Comment: Testing | 0.4 - 2.0 | [facility] | | | Serum | performed at [facility];[address] | mmol/L | LABORATORY | | | | [address];[place], [place] | | | | | | [address] | | | | + + + + + + + + | Specimen | + + | Blood | + + + + + + + | Performing | Address | City/State/Zipcode | Phone Number | | Organization | | | | + + + + + | [facility] | [address] | [place] [address] | [phone] | + + + + + Procalcitonin (12/24/2019 12:27 PM PDT) + + + + + + | Component | Value | Ref Range | Performed | Pathologist | | | | | At | Signature | + + + + + + | PROCALCITON | 0.69 (H)Comment: | <0.5 ng/mL | [facility] | | | IN | [...] | | | | | at [facility];[address] [place] [address] | | | | | | [facility];[place] [address] | | | | + + + + + + + + | Specimen | + + | Blood | + + + + + + + | Performing | Address | City/State/Zipcode | Phone Number | | Organization | | | | + + + + + | [facility] | [address] | [place] [address] | [phone] | + + + + + POC Glucose (12/24/2019 12:25 PM PDT) + + + + + + | Component | Value | Ref Range | Performed | Pathologist | | | | | At | Signature | + + + + + + | Glucose, | 143 (H)Comment: Testing | 65 - 99 mg/dL | [facility] | | | POC | performed at [facility];[address] | | LABORATORY | | | | [address];[place] | | | | | | [address] | | | | + + + + + + + + | Specimen | + + | | + + + + + + + | Performing | Address | City/State/Zipcode | Phone Number | | Organization | | | | + + + + + | [facility] | [address] | [place] [address] | [phone] | + + + + + POC [...] | | POC | performed at [facility];[address] | | LABORATORY | | | | [address];[place], [place] | | | | | | [address] | | | | + + + + + + + + | Specimen | + + | | + + + + + + + | Performing | Address | City/State/Zipcode | Phone Number | | Organization | | | | + + + + + | [facility] | [address] | [place] [address] | [phone] | + + + + + CBC [...] | | | | performed at [facility];[address] | | | | | | [address];[place] | | | | | | [address] | | | | + + + + + + + + | Specimen | + + | Blood | + + + + + + + | Performing | Address | City/State/Zipcode | Phone Number | | Organization | | | | + + + + + | [facility] | [address] [facility] | [place] [address] | [phone] | + + + + + Basic [...] | | | | | performed at [facility], [address] | | | | | | [facility], | | | | | | [place] [address] | | | | + + + + + + + + | Specimen | + + | Blood | + + + + + + + | Performing | Address | City/State/Zipcode | Phone Number | | Organization | | | | + + + + + | [facility] | [address] | [place] [address] | [phone] | + + + + + POC Glucose (12/23/2019 8:35 PM PDT) + + + + + + | Component | Value | Ref Range | Performed | Pathologist | | | | | At | Signature | + + + + + + | Glucose, | 135 (H)Comment: Testing | 65 - 99 mg/dL | [facility] | | | POC | performed at [facility];[address] | | LABORATORY | | | | [address];[place] | | | | | | [address] | | | | + + + + + + + + | Specimen | + + | | + + + + + + + | Performing | Address | City/State/Zipcode | Phone Number | | Organization | | | | + + + + + | [facility] | [address] | [place] [address] | [phone] | + + + + + POC [...] | | POC | performed at [facility];[address] | | LABORATORY | | | | [address];[place], [place] | | | | | | [address] | | | | + + + + + + + + | Specimen | + + | | + + + + + + + | Performing | Address | City/State/Zipcode | Phone Number | | Organization | | | | + + + + + | [facility] | [address] | [place] [address] | [phone] | + + + + + POC [...] | | POC | performed at [facility];[address] | | LABORATORY | | | | [address];[place] | | | | | | [address] | | | | + + + + + + + + | Specimen | + + | | + + + + + + + | Performing | Address | City/State/Zipcode | Phone Number | | Organization | | | | + + + + + | [facility] | [address] | [place] [address] | [phone] | + + + + + POC [...] | | POC | performed at [facility];[address] | | LABORATORY | | | | [address];[place] | | | | | | [address] | | | | + + + + + + + + | Specimen | + + | | + + + + + + + | Performing | Address | City/State/Zipcode | Phone Number | | Organization | | | | + + + + + | [facility] | [address] | [place] [address] | [phone] | + + + + + Basic [...] | | | | performed at [facility];[address] | | | | | | [facility];[place], [place] | | | | | | [address] | | | | + + + + + + + + | Specimen | + + | Blood | + + + + + + + | Performing | Address | City/State/Zipcode | Phone Number | | Organization | | | | + + + + + | [facility] | [address] | [place] [address] | [phone] | + + + + + Phosphorus (12/23/2019 4:04 AM PDT) + + + + + + | Component | Value | Ref Range | Performed | Pathologist | | | | | At | Signature | + + + + + + | Phosphorus | 4.6Comment: Testing | 2.3 - 4.8 mg/dL | [facility] | | | | performed at [facility];[address] | | LABORATORY | | | | [facility] [address];[place], [place] | | | | | | [address] | | | | + + + + + + + + | Specimen | + + | Blood | + + + + + + + | Performing | Address | City/State/Zipcode | Phone Number | | Organization | | | | + + + + + | [facility] | [address] | [place] [address] | [phone] | + + + + + Magnesium (12/23/2019 4:04 AM PDT) + + + + + + | Component | Value | Ref Range | Performed | Pathologist | | | | | At | Signature | + + + + + + | Magnesium | 2.1Comment: Testing | 1.7 - 2.4 mg/dL | [facility] | | | | performed at [facility];[address] | | LABORATORY | | | | [address];[place] | | | | | | [address] | | | | + + + + + + + + | Specimen | + + | Blood | + + + + + + + | Performing | Address | City/State/Zipcode | Phone Number | | Organization | | | | + + + + + | [facility] | [address] | [place] [address] | [phone] | + + + + + CBC [...] | | | | performed at [facility];[address] | | | | | | [address];[place], [place] | | | | | | [address] | | | | + + + + + + + + | Specimen | + + | Blood | + + + + + + + | Performing | Address | City/State/Zipcode | Phone Number | | Organization | | | | + + + + + | [facility] | [address] | [place] [address] | [phone] | + + + + + Hemoglobin (12/22/2019 9:37 PM PDT) + + + + + + | Component | Value | Ref Range | Performed | Pathologist | | | | | At | Signature | + + + + + + | Hemoglobin | 9.1 (L)Comment: Testing | 13.2 - 17.0 | [facility] | | | | performed at [facility];888 | g/dL | LABORATORY | | | | [address];[place] | | | | | | [address] | | | | + + + + + + + + | Specimen | + + | Blood | + + + + + + + | Performing | Address | City/State/Zipcode | Phone Number | | Organization | | | | + + + + + | [facility] | [address] | [place] [address] | [phone] | + + + + + Hematocrit (12/22/2019 9:37 PM PDT) + + + + + + | Component | Value | Ref Range | Performed | Pathologist | | | | | At | Signature | + + + + + + | Hematocrit | 27.4 (L)Comment: Testing | 39.0 - 50.0 % | [facility] | | | | performed at [facility];[address] | | LABORATORY | | | | [address];[place], [place] | | | | | | [address] | | | | + + + + + + + + | Specimen | + + | Blood | + + + + + + + | Performing | Address | City/State/Zipcode | Phone Number | | Organization | | | | + + + + + | [facility] | [address] | [place] [address] | [phone] | + + + + + POC [...] | | POC | performed at [facility];[address] | | LABORATORY | | | | [address];[place], [place] | | | | | | [address] | | | | + + + + + + + + | Specimen | + + | | + + + + + + + | Performing | Address | City/State/Zipcode | Phone Number | | Organization | | | | + + + + + | [facility] | [address] | [place] [address] | [phone] | + + + + + POC Glucose (12/22/2019 5:32 PM PDT) + + + + + + | Component | Value | Ref Range | Performed | Pathologist | | | | | At | Signature | + + + + + + | Glucose, | 153 (H)Comment: Testing | 65 - 99 mg/dL | [facility] | | | POC | performed at [facility];[address] | | LABORATORY | | | | [address];[place], [place] | | | | | | [address] | | | | + + + + + + + + | Specimen | + + | | + + + + + + + | Performing | Address | City/State/Zipcode | Phone Number | | Organization | | | | + + + + + | [facility] | [address] | [place] [address] | [phone] | + + + + + Red [...] | [facility] | | | COMMENT | [address] | | LABORATORY | | | | [address];[place] [address] | | | | + + + + + + + + | Specimen | + + | | + + + + + + + | Performing | Address | City/State/Zipcode | Phone Number | | Organization | | | | + + + + + | [facility] | [address] | [place] [address] | [phone] | + + + + + POC Glucose (12/22/2019 10:38 AM PDT) + + + + + + | Component | Value | Ref Range | Performed | Pathologist | | | | | At | Signature | + + + + + + | Glucose, | 161 (H)Comment: Testing | 65 - 99 mg/dL | [facility] | | | POC | performed at [facility];[address] | | LABORATORY | | | | [address];[place], [place] | | | | | | [address] | | | | + + + + + + + + | Specimen | + + | | + + + + + + + | Performing | Address | City/State/Zipcode | Phone Number | | Organization | | | | + + + + + | [facility] | [address] | [place] [address] | [phone] | + + + + + FL [place] (12/22/2019 10:28 AM PDT) + + | Specimen | + + | | + + + + + | Impressions | Performed At | + + + | Fluoroscopic service for right hip fixation. This report is for | [facility] | | radiation documentation purposes only. Signed by: Denis, | | Eliezer Gonzalez M.D. Sign Date/Time: 12/22/2019 10:44 AM | | [...] | | POC | performed at [facility];888 | g/dL | LABORATORY | | | | [address];[place], [place] | | | | | | [address] | | | | + + + + + + + + | Specimen | + + | | + + + + + + + | Performing | Address | City/State/Zipcode | Phone Number | | Organization | | | | + + + + + | [facility] | [address] | [place] [address] | [phone] | + + + + + POC [...] | | POC | performed at [facility];[address] | g/dL | LABORATORY | | | | [address];[place], [place] | | | | | | [address] | | | | + + + + + + + + | Specimen | + + | | + + + + + + + | Performing | Address | City/State/Zipcode | Phone Number | | Organization | | | | + + + + + | [facility] | [address] | [place] [address] | [phone] | + + + + + POC [...] | | POC | performed at [facility];888 | g/dL | LABORATORY | | | | [address];[place], [place] | | | | | | [address] | | | | + + + + + + + + | Specimen | + + | | + + + + + + + | Performing | Address | City/State/Zipcode | Phone Number | | Organization | | | | + + + + + | [facility] | [address] | [place] [address] | [phone] | + + + + + POC [...] (L)Comment: Testing | 13.7 - 16.7 | [facility] | | | POC | performed at [facility];888 | g/dL | LABORATORY | | | | [address];[place], [place] | | | | | | [address] | | | | + + + + + + + + | Specimen | + + | | + + + + + + + | Performing | Address | City/State/Zipcode | Phone Number | | Organization | | | | + + + + + | [facility] | [address] | [place] [address] | [phone] | + + + + + Type [...] + + + | BB BAND | [id number] | | [facility] | | | | | | LABORATORY | | + + + + + + | UNIT # | [id number] | | [facility] | | | | [...] | | RESULT | performed at [facility];[address] | | LABORATORY | | | | [address];[place], [place] | | | | | | [address] | | | | + + + + + + | UNIT # | [id number] | | [facility] | | | | [...] [facility] | [address] | [place] [address] | [phone] | + + + + + POC Glucose (12/22/2019 5:35 AM PDT) + + + + + + | Component | Value | Ref Range | Performed | Pathologist | | | | | At | Signature | + + + + + + | Glucose, | 155 (H)Comment: Testing | 65 - 99 mg/dL | [facility] | | | POC | performed at [facility];[address] | | LABORATORY | | | | [address];[place], [place] | | | | | | [address] | | | | + + + + + + + + | Specimen | + + | | + + + + + + + | Performing | Address | City/State/Zipcode | Phone Number | | Organization | | | | + + + + + | [facility] | [address] | [place] [address] | [phone] | + + + + + Protime INR (12/22/2019 5:26 AM PDT) + + + + + + | Component | Value | Ref Range | Performed | Pathologist | | | | | At | Signature | + + + + + + | INR | 1.2Comment: REFERENCE | | [facility] | | | [...] | | | | performed at [facility];[address] | | | | | | [address];[place] | | | | | | [address] | | | | + + + + + + + + | Specimen | + + | Blood | + + + + + + + | Performing | Address | City/State/Zipcode | Phone Number | | Organization | | | | + + + + + | [facility] | [address] | [place] [address] | [phone] | + + + + + CBC [...] | | | Absolute | performed at [facility], [address] | LABORATORY | | | | [address], | | | | | | [place] [address] | | | | + + + + + + + + | Specimen | + + | Blood | + + + + + + + | Performing | Address | City/State/Zipcode | Phone Number | | Organization | | | | + + + + + | [facility] | [address] | [place] [address] | [phone] | + + + + + Magnesium (12/22/2019 5:26 AM PDT) + + + + + + | Component | Value | Ref Range | Performed | Pathologist | | | | | At | Signature | + + + + + + | Magnesium | 2.6 (H)Comment: Testing | 1.7 - 2.4 mg/dL | [facility] | | | | performed at [facility], [address] | | LABORATORY | | | | [address], | | | | | | [place] [address] | | | | + + + + + + + + | Specimen | + + | Blood | + + + + + + + | Performing | Address | City/State/Zipcode | Phone Number | | Organization | | | | + + + + + | [facility] | [address] | [place] [address] | [phone] | + + + + + Basic [...] | | | | | performed at [facility], [address] | | | | | | [address], | | | | | | [place] [address] | | | | + + + + + + + + | Specimen | + + | Blood | + + + + + + + | Performing | Address | City/State/Zipcode | Phone Number | | Organization | | | | + + + + + | [facility] | [address] | [place] [address] | [phone] | + + + + + POC [...] | | POC | performed at [facility];[address] | | LABORATORY | | | | [address];[place], [place] | | | | | | [address] | | | | + + + + + + + + | Specimen | + + | | + + + + + + + | Performing | Address | City/State/Zipcode | Phone Number | | Organization | | | | + + + + + | [facility] | [address] | [place] [address] | [phone] | + + + + + POC Glucose (12/21/2019 9:11 PM PDT) + + + + + + | Component | Value | Ref Range | Performed | Pathologist | | | | | At | Signature | + + + + + + | Glucose, | 182 (H)Comment: Testing | 65 - 99 mg/dL | [facility] | | | POC | performed at [facility];[address] | | LABORATORY | | | | [address];[place] | | | | | | [address] | | | | + + + + + + + + | Specimen | + + | | + + + + + + + | Performing | Address | City/State/Zipcode | Phone Number | | Organization | | | | + + + + + | [facility] | [address] | [place] [address] | [phone] | + + + + + documented in this encounter Visit Diagnoses + + | Diagnosis | + + | Acute GI bleeding - Primary Hemorrhage of gastrointestinal tract, unspecified | + + | Closed comminuted intertrochanteric fracture of right femur with routine healing | + + | Chronic kidney disease, stage IV (severe) (HCC) Chronic kidney disease, Stage IV | | (severe) | + + | Permanent atrial fibrillation (HCC) Atrial fibrillation | + + | Chronic diastolic heart failure (HCC) Chronic diastolic heart failure | + + | 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) | + + | Acute renal failure with acute tubular necrosis superimposed on stage 3 chronic kidney | | disease (HCC) | + + | KATI (acute kidney injury) (HCC) Acute kidney failure, unspecified | + + | Metabolic acidosis Acidosis | + + | Anemia, unspecified type | + + | Hyperkalemia Hyperpotassemia | + + | Hypoalbuminemia Other disorders of plasma protein metabolism | + + | History of stroke Transient ischemic attack (TIA), and cerebral infarction without | | residual deficits | + + | Hypertension goal BP (blood pressure) < 140/80 Unspecified essential hypertension | + + | Weakness generalized Other malaise and fatigue | + + | Difficulty in walking | + + | Type 2 diabetes mellitus with kidney complication, 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) | + + | Bacterial pneumonia Bacterial pneumonia, unspecified | + + | Acute post-hemorrhagic anemia Acute posthemorrhagic anemia | + + | Bleeding duodenal ulcer Chronic or unspecified duodenal ulcer with hemorrhage, | | without mention of obstruction | + + documented in this encounter [...] +---+ | | | + +---+ + +---------+ +------+-------+---+ | albumin 25% IVPB 25 g 25 g, | New Bag | 12/25/19 | 25 g | 100 | | | Intravenous, Administer over 60 | | 20 3:14 | | mL/hr | | | Minutes, EVERY 6 HOURS INTERVAL, | | PM PDT | | | | | First dose on Mon12/25/19 at 1430, | | | | | | | For 4 doses, Indications: | | | | | | | hypoalbumin | | | | | | + +---------+ +------+-------+---+ +---+---+ | | | +---+---+ + +---------+ +------+-------+---+ | albumin 25% IVPB 25 g 25 g, | New Bag | 12/26/19 | 25 g | 100 | | | Intravenous, Administer over 60 | | 20 3:13 | | mL/hr | | | Minutes, EVERY 6 HOURS INTERVAL, | | AM PDT | | | | | First dose (after last reorder) | | | | | | | on Mon12/25/19 at 1545, For 4 | | | | | | | doses, Indications: hypoalbumin | | | | | | + +---------+ +------+-------+---+ +---------+ +------+-------+---+ | New Bag | 12/25/19 | 25 g | 100 | | | | 20 9:12 | | mL/hr | | | | PM PDT | | | | +---------+ +------+-------+---+ + +---+ | | | + +---+ [...] 12/28/19 | | | at 1231, Abhijit well., | | + +---+ | | | + +---+ + +-------+ +--------+---+---+ | apixaban (ELIQUIS) tablet 2.5 | Given | 12/27/19 | 2.5 mg | | | | mg 2.5 mg, Oral, 2 TIMES DAILY, | | 20 10:08 | | | | | First dose on 12/23/19 at 0900, | | PM PDT | | | | | Post-op/Phase II | | | | | | + +-------+ +--------+---+---+ +-------+ +--------+---+---+ | Given | 12/27/19 | 2.5 mg | | | | | 20 9:04 | | | | | | AM PDT | | | | +-------+ +--------+---+---+ | Given | 12/26/19 | 2.5 mg | | | | | 20 9:39 | | | | | | PM PDT | | | | +-------+ +--------+---+---+ +---+---+ | | | +---+---+ + +-------+ +--------+---+---+ | ascorbic acid (VITAMIN [...] | | +---+---+ + +-------+ +-------+---+---+ | carvedilol (COREG) tablet 25 mg | Given | 12/23/19 | 25 mg | | | | 25 mg, Oral, 2 TIMES DAILY WITH | | 20 5:33 | | | | | BREAKFAST & DINNER, First dose | | PM PDT | | | | | on 12/21/19 at 2145 | | | | | | + +-------+ +-------+---+---+ +-------+ +-------+---+---+ | Given | 12/23/19 | 25 mg | | | | | 20 8:03 | | | | | | AM PDT | | | | +-------+ +-------+---+---+ | Given | 12/22/19 | 25 mg | | | | | 20 5:29 | | | | | | PM [...] | | | | +-------+ + +---+---+ +---+---+ | | | +---+---+ + +---------+ +-----+-------+---+ | ceFAZolin (ANCEF, KEFZOL) 1 g | New Bag | 12/22/19 | 1 g | 100 | | | in sodium chloride 0.9% 50 mL | | 20 8:20 | | mL/hr | | | IVPB 1 g, Intravenous, | | PM PDT | | | | | Administer over 30 Minutes, EVERY | | | | | | | 12 HOURS (2 times per day), | | | | | | | First dose (after last reorder) | | | | | | | on 12/22/19 at 2100, For 2 | | | | | | | doses, Start 8 hours after | | | | | | | previous dose. Last dose to be | | | | | | | given within 24 hours of surgery | | | | | | | end time Activate system and mix | | | | | | | before use., Post-op/Phase II, | | | | | | | Indications: Surgical Prophylaxis | | | | | | + +---------+ +-----+-------+---+ +---+---+ | | | +---+---+ + +---------+ +-----+-------+---+ | ceFAZolin in dextrose (ANCEF, | New Bag | 12/23/19 | 1 g | 100 | | | KEFZOL) IVPB 1 g 1 g, | | 20 10:20 | | mL/hr | | | Intravenous, Administer over 30 | | AM PDT | | | | | Minutes, ONCE, 12/23/19 at | | | | | | | 1030, For 1 dose, Keep in | | | | | | | refrigerator., Indications: | | | | | | | Surgical Prophylaxis | | | | | | + +---------+ +-----+-------+---+ + +---+ | | | + +---+ [...] | + +---+ + +-------+ +------+---+---+ | EPINEPHrine 0.1 mg/mL syringe | Given | 12/29/19 | 1 mg | | | | PRN, Starting 12/29/19 at | | 20 9:24 | | | | | 0924, Intra-op | | AM PDT | | | | + +-------+ +------+---+---+ +---+---+ | | | +---+---+ + +-------+ +---------+---+ + | epoetin richie-epbx (RETACRIT) | Given | 12/31/19 | 10,000 | | Abdomen- | | 10,000 units/mL injection 10,000 | | 20 10:57 | Units | | LLQ | | Units 10,000 Units, | | AM PDT | | | | | Subcutaneous, ONCE, 12/31/19 | | | | | | | at 0915, For 1 dose, Keep in | | | | | | | refrigerator. Do not shake., | | | | | | | ESRD-related (i.e. dialysis) | | | | | | | indication? No | | | | | | + +-------+ +---------+---+ + +---+---+ | | | +---+---+ + +-------+ +--------+---+---+ | fentaNYL (PF) injection 25-50 | Given | 12/22/19 | 25 mcg | | | | mcg 25-50 mcg, Intravenous, | | 20 11:23 | | | | | EVERY 5 MIN PRN, Pain, Initial | | AM PDT | | | | | postop medication for URGENT PAIN | | | | | | | OR ESCALATING PAIN, Starting Sun | | | | | | | 12/22/19 at 1026, For 4 doses, | | | | | | | First dose must be lowest dose. | | | | | | | Use Pasero Sedation Scale. | | | | | | | [Opioid tolerant = One week or | | | | | | | longer, sbvcch-pdk-qtpsx use of | | | | | | | at least the following DAILY | | | | | | | dose: 60mg oral morphine, 60mg | | | | | | | oral hydrocodone, 30mg oral | | | | | | | oxycodone, 8mg oral | | | | | | | hydromorphone, fentanyl patch | | | | | | | 25mcg/hr, or equivalent dose of | | | | | | | another opioid], Recovery/Phase I | | | | | | + +-------+ +--------+---+---+ +---+---+ | | | +---+---+ + +-------+ +--------+---+---+ | ferrous sulfate tablet [...] | | +---+---+ + +-------+ +-------+---+---+ | furosemide (LASIX) injection 40 | Given | 12/27/19 | 40 mg | | | | mg 40 mg, Intravenous, ONCE, | | 20 3:26 | | | | | 12/27/19 at 1445, For 1 dose, | | PM PDT | | | | | Please give one dose of IV Lasix | | | | | | | 40 mg in between transfusions. | | | | | | | Thank you, | | | | | | + +-------+ +-------+---+---+ +---+---+ | | | +---+---+ + +-------+ + +---+---+ | HYDROcodone-acetaminophen | Given | 12/23/19 | 1 tablet | | | | (NORCO) 5-325 mg per tablet -2 | | 20 8:07 | | | | | tablet 1-2 tablet, Oral, EVERY 4 | | AM PDT | | | | | HOURS PRN, Pain, Moderate Pain, | | | | | | | Starting 12/21/19 at 2126, If | | | | | | | ineffective use Mellette 10/325 if | | | | | | | ordered. If not tolerated, use | | | | | | | Percocet then Oxycodone if | | | | | | | ordered., | | | | | | + +-------+ + +---+---+ +-------+ + +---+---+ | Given | 12/23/19 | 1 tablet | | | | | 20 3:22 | | | | | | AM PDT | | | | +-------+ + +---+---+ | Given | 12/22/19 | 1 tablet | | | | | 20 8:24 | | | | | | PM PDT | | | | +-------+ + +---+---+ +---+---+ | | | +---+---+ + +-------+ +---------+---+---+ | HYDROmorphone (DILAUDID) | Given | 12/22/19 | 0.25 mg | | | | injection 0.25-1 mg 0.25-1 mg, | | 20 12:27 | | | | | Intravenous, EVERY 4 HOURS PRN, | | PM PDT | | | | | Moderate Pain, Severe Pain, Pain, | | | | | | | Starting 12/21/19 at 2126, Use | | | | | | | IV morphine first if ordered. | | | | | | | Slow IV push, not faster than | | | | | | | 0.25 mg/minute. If ineffective or | | | | | | | not tolerated and unable to take | | | | | | | oral opioid - contact MD., | | | | | | + +-------+ +---------+---+---+ +-------+ +---------+---+---+ | Given | 12/22/19 | 0.25 mg | | | | | 20 6:38 | | | | | | AM PDT | | | | +-------+ +---------+---+---+ | Given | 12/22/19 | 0.25 mg | | | | | 20 1:43 | | | | | | AM [...] | | | | | | Starting [facility] 12/26/19 at 1637 | | | [...] | | | | | | | [id number] Use NIGHT DOSE for | | | | | | | doses scheduled: HS, | | | | | | | Nighttime 2401-0218 If the BG is | | | [...] + +---+---+ | | | +---+---+ + +---------+ +---+-------+---+ | lactated ringers (LR) infusion | New Bag | 12/24/19 | | 150 | | | at 150 mL/hr, Intravenous, | | 20 12:07 | | mL/hr | | | CONTINUOUS, Starting 12/24/19 | | PM PDT | | | | | at 1145 | | | | | | + +---------+ +---+-------+---+ +---+---+ | | | +---+---+ + +-------+ [...] | | +---+---+ + +-------+ +------+---+---+ | melatonin tablet 1 mg 1 mg, | Given | 12/31/19 | 1 mg | | | | Oral, ONCE, 12/31/19 at 0030, | | 20 12:31 | | | | | For 1 dose | | AM PDT | | | | + +-------+ +------+---+---+ [...] | + +---+ + +-------+ +------+---+---+ | ondansetron (ZOFRAN) injection [...] PDT | | | | +-------+ +------+---+---+ + +---+ | | | [...] | + +---+ + +-------+ +-------+---+---+ | oxyCODONE (ROXICODONE) tablet | Given | 12/23/19 | 10 mg | | | | 5-10 mg 5-10 mg, Oral, EVERY 4 | | 20 10:44 | | | | | HOURS PRN, Pain, Starting Mon | | AM PDT | | | | | 12/23/19 at 1019 | | | | | | + +-------+ +-------+---+---+ +---+---+ | | | +---+---+ + +---------+ +---------+ +---+ | pantoprazole (PROTONIX) 0.8 | New Bag | 12/30/19 | 8 mg/hr | 10 mL/hr | | | mg/mL in sodium chloride 0.9% 100 | | 20 9:26 | | | | | mL infusion 8 mg/hr (10 mL/hr), | | AM PDT | | | | | at 10 mL/hr, Intravenous, | | | | | | | CONTINUOUS, Starting 12/28/19 | | | | | | | at 1500, Indication: Bleed, upper | | | | | | | GI | | | | | | + +---------+ +---------+ +---+ +---------+ +---------+ +---+ | New Bag | 12/29/19 | 8 mg/hr | 10 mL/hr | | | | 20 11:01 | | | | | | PM PDT | | | | +---------+ +---------+ +---+ | New Bag | 12/29/19 | 8 mg/hr | 10 mL/hr | | | | 20 11:51 | | | | | | AM PDT | | | | +---------+ +---------+ +---+ +---+---+ | | | +---+---+ + +-------+ +-------+---+---+ | pantoprazole (PROTONIX) DR | Given | 12/28/19 | 40 mg | | | | tablet 40 mg 40 mg, Oral, 2 | | 20 5:46 | | | | | TIMES DAILY BEFORE MEALS, First | | AM PDT | | | | | dose on Mon12/27/19 at 1630, Do | | | | | | | not cut or crush., Indication: | | | | | | | GERD | | | | | | + +-------+ +-------+---+---+ +-------+ +-------+---+---+ | Given | 12/27/19 | 40 mg | | | | | 20 3:48 | | | | | | PM PDT | | | | +-------+ +-------+---+---+ +---+---+ | | | +---+---+ + +-------+ +-------+---+---+ | pantoprazole (PROTONIX) DR [...] | | +---+---+ + +-------+ +-------+---+---+ | pantoprazole (PROTONIX) | Given | 12/31/19 | 40 mg | | | | injection 40 mg 40 mg, | | 20 7:38 | | | | | Intravenous, 2 TIMES DAILY, First | | AM PDT | | | | | dose on Mon12/30/19 at 1415, | | | | | | | Indication: Bleed, upper GI | | | | | | + +-------+ +-------+---+---+ +-------+ +-------+---+---+ | Given | 12/30/19 | 40 mg | | | | | 20 8:18 | | | | | | PM PDT | | | | +-------+ +-------+---+---+ | Given | 12/30/19 | 40 mg | | | | | 20 3:48 | | | | | | PM PDT | | | | +-------+ +-------+---+---+ +---+---+ | | | +---+---+ + +---------+ +---------+-------+---+ | piperacillin-tazobactam (ZOSYN) | New Bag | 12/24/19 | 3.375 g | 200 | | | 3.375 g in dextrose 5% 100 mL | | 20 1:15 | | mL/hr | | | IVPB 3.375 g, Intravenous, | | PM PDT | | | | | Administer over 30 Minutes, ONCE, | | | | | | | 12/24/19 at 1300, For 1 dose, | | | | | | | Keep in refrigerator., | | | | | | | Indications: | | | | | | | Healthcare-Associated Pneumonia | | | | | | + +---------+ +---------+-------+---+ +---+---+ | | | +---+---+ + +---------+ +---------+ +---+ | piperacillin-tazobactam (ZOSYN) | New Bag | 12/29/19 | 3.375 g | 25 mL/hr | | | 3.375 g in dextrose 5% 100 mL | | 20 8:39 | | | | | IVPB 3.375 g, Intravenous, | | AM PDT | | | | | Administer over 4 Hours, EVERY 12 | | | | | | | HOURS INTERVAL, First dose | | | | | | | (after last modification) on Tue | | | | | | | 12/24/19 at 1700, Keep in | | | | | | | refrigerator., Indications: | | | | | | | Healthcare-Associated Pneumonia | | | | | | + +---------+ +---------+ +---+ +---------+ +---------+ +---+ | New Bag | 12/28/19 | 3.375 g | 25 mL/hr | | | | 20 8:36 | | | | | | PM PDT | | | | +---------+ +---------+ +---+ | New Bag | 12/28/19 | 3.375 g | 25 mL/hr | | | | 20 9:50 | | | | | | AM PDT | | | | +---------+ +---------+ +---+ +---+---+ | | | +---+---+ + +-------+ +---+---+---+ | povidone-iodine 5 % external | Given | 12/22/19 | | | | | solution Other, PRN, Other, | | 20 8:19 | | | | | pre-op, Starting 12/22/19 at | | AM PDT | | | | | 0817, For 1 dose, day, Pre-op | | | | | | + +-------+ +---+---+---+ +---+---+ | | | +---+---+ + +-------+ [...] +---+---+ | | | +---+---+ + +-------+ +---------+-------+---+ | sodium bicarbonate 1 mEq/mL | Given | 12/25/19 | 100 mEq | 600 | | | injection 100 mEq 100 mEq, | | 20 3:13 | | mL/hr | | | Intravenous, Administer over 10 | | PM PDT | | | | | Minutes, ONCE, 12/25/19 at | | | | | | | 1415, For 1 dose | | | | | | + +-------+ +---------+-------+---+ +---+---+ | | | +---+---+ + +-------+ +---------+-------+---+ | sodium bicarbonate 1 mEq/mL | Given | 12/26/19 | 100 mEq | 600 | | | injection 100 mEq 100 mEq, | | 20 8:46 | | mL/hr | | | Intravenous, Administer over 10 | | AM PDT | | | | | Minutes, ONCE, [facility] 12/26/19 at | | | | | | | 0815, For 1 dose | | | | | | + +-------+ +---------+-------+---+ +---+---+ | | | +---+---+ + +---------+ +---+ +---+ | sodium chloride 0.45% (1/2 NS) | New Bag | 12/21/19 | | 70 mL/hr | | | infusion at 70 mL/hr, | | 20 9:48 | | | | | Intravenous, CONTINUOUS, Starting | | PM PDT | | | | | 12/21/19 at 2145, For 7 hours | | | | | | + +---------+ +---+ +---+ +---+---+ | | | +---+---+ + +---------+ +---------+-------+---+ | sodium chloride 0.9% (NS) bolus | New Bag | 12/24/19 | 250 mLs | 250 | | | 250 mL 250 mL, Intravenous, | | 20 1:14 | | mL/hr | | | ONCE, 12/24/19 at 1230, For 1 | | PM PDT | | | | | dose | | | | | | + +---------+ +---------+-------+---+ +---+---+ | | | +---+---+ + +---------+ +---+-------+---+ | sodium chloride 0.9% (NS) | New Bag | 12/22/19 | | 100 | | | infusion at 100 mL/hr, | | 20 5:29 | | mL/hr | | | Intravenous, CONTINUOUS, Starting | | PM PDT | | | | | Ayesha 12/22/19 at 0845 | | | | [...] +---------+ +---+-------+---+ +---+---+ | | | +---+---+ + +-------+ [...] | | +---+---+ + +-------+ +-------+---+---+ | traMADol (ULTRAM) tablet 50 mg | Given | 12/24/19 | 50 mg | | | | 50 mg, Oral, EVERY 6 HOURS ( | | 20 5:59 | | | | | times per day), First dose on Mon | | AM PDT | | | | | 12/23/19 at 1200 | | | | | | + +-------+ +-------+---+---+ +-------+ +-------+---+---+ | Given | 12/23/19 | 50 mg | | | | | 20 9:42 | | | | | | PM PDT | | | | +-------+ +-------+---+---+ | Given | 12/23/19 | 50 mg | | | | | 20 2:50 | | | | | | PM [...]
--- OUTSIDE RECORDS SUMMARY | ~2020-03-05 | XMS | Encounter Summary ---
Demographics + + + | Address | [address] | | | [place] [address] | + + + | Home Phone [...] [place] | | | | | [address] | | + + + + + | Deanna Lawson | ECON | Unknown | | + + + + + Care Team Providers + +------+ + | Care Emergency Management Director Name | Role | Phone | + +------+ + | Barbara Gilman MD | PCP | | + +------+ + Reason for Visit +--------+--------+ + | Reason | Onset | Comments | | | Date | | +--------+--------+ + | Other | 01/02/ | Hospital F/U | | | 2020 | | +--------+--------+ + Encounter Details +--------+ + + + + | Date | Type | Department | Care Team | Description | +--------+ + + + + | 01/02/ | Telephone | [facility] | Isiah Jade MD | Other (Hospital F/ | | 2019 | | [facility]OLOGY [facility] | [address] [place] | ) | | | | [address] [place] | [address] [facility] [place] | | | | | [address] [place], [place] | [id number] | | | | | [address] | | | | | | [phone] | | | +--------+ + + + [...] this encounter Miscellaneous Notes Telephone Encounter - Hallie Damon Medical Assistant - 01/06/2020 3:09 PM [facility] [place] [facility] patients F/U for February 04 @ 4:00 informed her th at patient will need labs completed before appointments. She provided me with fax number to send orders [phone].Electronically signed by Kita Miranda at 0 01/06/2020 3:10 PM PDTTelephone Encounter - Hallie Damon Medical Assistant - 020 10:[address] Jade patient needs to be seen in 4weeks for a hospital F/U with ini tial labs. Called patient to inform of this and schedule F/U for February 04 @ 4:00. Was unabl e to reach patient at number listed left message with possible appointment information and c linic name and number for him to call back. Will attempt to reach patient again at a later t jackie. Tdocumented in this encounter Plan of Treatment +--------+---------+ + + + | Date | Type | Specialty | Care Team | Description | +--------+---------+ + + + | 03/17/ | Office | Orthopedic Surgery | Melquiades Baez | | | 2019 | Visit | | DO [address] | | | | | | [place], | | | | | | [place] [address] | | | | | | [phone] | | | | | | | | +--------+---------+ + + + | 04/21/ | Office | Nephrology | Isiah Jade MD | | | 2019 | Visit | | [address] | | | | | | [address] [place] | | | | | | [address] | | | | | | | | +--------+---------+ + + + | 05/07/ | Office | Cardiology | Charlee Oswald | | | 2019 | Visit | | [address] | | | | | | [place] | | | | | | [place] [address] | | | | | | [phone] | | | | | | | | +--------+---------+ + + + documented as of this encounter Visit Diagnoses Not on filedocumented in this encounter"
--- OUTSIDE RECORDS SUMMARY | ~2020-03-05 | XMS | Encounter Summary ---
Demographics + + + | Address | [address] | | | [place] [address] | + + + | Home Phone | | + + + | Preferred Language | Unknown | + + + | Marital Status | | + + + | Scientology Affiliation | 1001 | + + + | Race | Unknown | + + + | Ethnic Group | Unknown | + + + Author + + + | Author | [facility] | | | and [place] | + + + | Organization | [facility] | | [...] [place] | | | | | [address] | | + + + + + | Deanna Lawson | ECON | Unknown | | + + + + + Care Team Providers + +------+ + | Care Psychological Anthropologist Name | Role | Phone | + +------+ + | Barbara Gilman MD | PCP | | + +------+ + Encounter Details +--------+ + + + + | Date | Type | Department | Care Team | Description | +--------+ + + + + | 10/25/ | Orders Only | [facility] | Charlee Oswald | | | 2019 | | CARDIOLOGY [facility] | [address] | | | | | [address] | [place] | | | | | [address] | [place] [address] | | | | | [place] | [phone] | | | | | [address] | | | | | | [phone] | | | +--------+ + + + [...] | | | | | [place] | | | | | | [place] [address] | | | | | | [phone] | | | | | | | | +--------+---------+ + + + | 04/21/ | Office | Nephrology | Isiah Jade MD | | | 2019 | Visit | | [address] [facility] | | | | | | [address] [place] | | | | | | [address] | | | | | | | | +--------+---------+ + + + | 05/07/ | Office | Cardiology | Charlee Oswald | | | 2019 | Visit | | [address] | | | | | | [address] | | | | | | [place] [address] | | | | | | [phone] | | | | | | | [...]
--- OUTSIDE RECORDS SUMMARY | ~2020-03-05 | XMS | Encounter Summary ---
Demographics + + + | Address | [address] | | | [place] [address] | + + + | Home Phone [...] [place] | | | | | [id number] | | + + + + + | Deanna Lawson | ECON | Unknown | | + + + + + Care Team Providers + +------+ + | Care Entry Table Operator Name | Role | Phone | + +------+ + PCP | Unavailable | + +------+ + Encounter Details +--------+ + + + + | Date | Type | Department | Care Team | Description | +--------+ + + + + | 07/25/ | Hospital | [facility] | Yoli Harding MD | Dyspnea, unspecified | | 2017 - | Encounter | [facility] | [address] | type; Fatigue, | | | | CARE FLOOR [address] | [place] [address] | unspecified type; | | 07/29/ | | [address] | [phone] | Altered mental | | 2016 | | [place], [place] | | status, unspecified | | | | [address] | | altered mental | | | | [phone] | | status type; | | | [...] Date of Service: 07/29/17 1003 Status: Signed Welding Machine Operator Submerged Arc: Gutierrez Lopez MD (Physician) [facility] Service: Hospitalist Discharge Summary Date of [...] patient and family (spouse and daughter) who a grees with plan. Patient discharged on oral iron therapy. The patient was found to be clin ically, hemodynamically and from a laboratory perspective stable for discharge and outpatien t management with congestive heart failure clinic, arranged by mattress spring encaser and outpatient sharon metzger. Past Medical History [...] Take 500 mg by mouth daily. 07/24/2017@0700 Imndaki-Iasycozkj-Dlpwyrw D 600-40-500 MG-MG-UNIT TB24 Take 1,200 mg by mouth daily. 07/25/2017@0700 glipiZIDE (GLUCOTROL) 5 MG tablet Take 2.5 mg by mouth every morning. 07/25/2017@00 lisinopril (ZESTRIL) 20 MG tablet Take 20 mg by mouth 2 (two) times daily. 07/25/2017@ 699 metFORMIN (GLUCOPHAGE) 500 MG tablet Take 500 mg by mouth 3 (three) times daily. 07/25@00 metoprolol (LOPRESSOR) 50 MG tablet Take 25 mg by mouth 2 (two) times daily. 7@0700 Multiple Vitamins-Minerals ([facility] PO) Take 1 tablet by mouth daily. 2016@00 [place] 3 1000 MG CAPS Take 1 capsule by mouth daily. 07/25/2017@00 omeprazole (PRILOSEC) 20 MG capsule Take 20 mg by mouth every morning before breakfast. 07/25/2017@00 potassium chloride (K-DUR) 10 MEQ tablet Take 20 mEq by mouth 2 (two) times daily with meals. 07/25/2017@0700 pravastatin (PRAVACHOL) 80 MG tablet Take 40 [...] As indicated below and as discussed by mattress spring encaser's at Bedside. Disposition: Home Condition: Stable Code Status: Full Code Discharge Instructions Diet Cardiac Diet Low Sodium Activity as Tolerated Follow up: ENEDINA Dickerson [address] [facility] [id number] Go on 07/31/2017 Hospital Follow Up Guided Patient Services Guided Patient Services GPS Depot Manager- JIAN [place] [phone] Mon-Fri 7:30 AM 4:00 PM Call for any questions or concerns after your discharge home, or for help making follow up appointments. ENEDINA Sandoval [address] [place] [id number] On 08/08/2017 Post-Hopsital discharge Follow-up. Medication List [...] Refills: 0 Commonly known as: VITAMIN C Ohproma-Paksgjzxh-Bjzxmea D 600-40-500 MG-MG-UNIT Tb24 Refills: 0 glipiZIDE [...] Martinez RN at 07/29/17 1345 Author: Valeria Martienz RN Service: (none) Author Type: Registered Nurse Filed: 07/29/17 2484 Date of Service: 07/29/171344 Status: Signed Welding Machine Operator Submerged Arc: Valeria Martinez RN (Registered Nurse) Patient discharged home via private vehicle with family. Heart failure education completed, all discharge instructions discussed. Patient has heart failure education packet and paper prescriptions in possession. All questions answered, all patient belongings with family. Shalini oleary wheeled out with BRIDGE CARPENTER, all vital signs stable upon discharge. VALERIA MARTINEZ RN onver jose a Transaction, Provider Unknown - 07/28/2017 3:18 PM PST Progress Notes by Carina Quintero CMA at 07/28/17 4381 Author: Carina Quintero CMA Service: (none) Author Type: Termite Control Representative Filed: 07/28/17 4317 Date of Service: 07/28/171517 Status: Signed Welding Machine Operator Submerged Arc: Carina Quintero CMA (Termite Control Representative) GPS- Patient enrolled. Scheduled to see Abril on 08/08 and PCP on 07/31 onver jose a Transaction, Provider Unknown - 07/28/2017 2:43 PM PST Case Management by Yousuf Mcfadden RN at 07/28/17 1443 Author: Yousuf Mcfadden RN Service: (none) Author Type: Registered Nurse Filed: 07/28/17 1444 Date of Service: 07/28/17 144 Status: Signed Welding Machine Operator Submerged Arc: Yousuf Mcfadden RN (Registered Nurse) I met with patient in rounds, he is enrolled in the CHF program through [facility] a nd has follow up schedule with his cardiologists. bleGutierrez lyn MD - 07/28/2017 6:56 AM PST Progress Notes by Gutierrez Lopez MD at 07/28/17 0656 Author: Gutierrez Lopez MD Service: Hospitalist Author Type: Physician Filed: 07/28/17 1342 Date of Service: 07/28/1756 Status: Signed Welding Machine Operator Submerged Arc: Gutierrez Lopez MD (Physician) [facility] Service: Hospitalist Progress Note Hospital Day: [...] 07/28/17617 Date of Service: 07/28/17612 Status: Signed Welding Machine Operator Submerged Arc: Stacey Ley RN (Registered Nurse) Patient again [...] monitor. 07/28/17 6:18 AM Stacey Ley RN utierrez Peter MD - 07/27/2017 10:15 AM PST Progress Notes by Gutierrez Lopez MD at 07/27/17 1015 Author: Gutierrez Lopez MD Service: Hospitalist Author Type: Physician Filed: 07/27/17 1547 Date of Service: 07/27/17 1015 Status: Signed Welding Machine Operator Submerged Arc: Gutierrez Lopez MD (Physician) [facility] Service: Hospitalist Progress Note Hospital Day: [...] (none) Author Type: Registered Nurse Filed: 07/26/17 7489 Date of Service: 07/26/17 143 Status: Signed Welding Machine Operator Submerged Arc: Yousuf Mcfadden RN (Registered Nurse) 07/26/17 143 [...] Anticipated Disposition Facility Type Home Met with Andres and discussed discharge planning, Pt is a 87 y.o., male who is independent an d lives with his in [place]. He goes to the [facility] for his coumadin checks an d doesn't use any DME. Andres denies having needs for discharge. Patient's PCP is:Janie Beltrán Patient's insurance:Medicare and [email or web address] Coverage concerns: none Medication coverage/concerns: yes/no Community [...] Physician Filed: 07/26/17 1341 Date of Service: 07/26/17 0809 Status: Signed Welding Machine Operator Submerged Arc: Nathen Coughlin MD (Physician) [facility] Service: Hospitalist Progress Note Pt: Andres Mcconnell AGE/SEX: 87 y.o. male ROOM: 7101/7101-1 : 1930 PCP: JANIE FITZGERALD ADMIT DATE: [...] last discharge his hgb was 8.1 in [place]. He was given iv lasix with improvement [...] and managing patient and counseling/coordination. Dictation software, Att[employer] Live, used which may contain error for similar [...] Author: Demond Sandy Service: (none) Author Type: Medical Educator Filed: 07/25/171950 Date of Service: 07/25/171946 Status: Signed Welding Machine Operator Submerged Arc: Demond Sandy () Visit per pt req. Pt sitting up in bed, pt (Marissa) sitting next to bed. Pt welcomed vi sit. Chp provided caring listening. Pt did some life review - talked proudly about his & wif e's 63 years of marriage & 3 children. Pt also explained he & are [employer], an d quite involved there. Day RN & night RN came in to do hand-off report. Pt & both said how great the care has been & how they've enjoyed their nurses. Positive visit with kindly couple. Medical Educatortavo Sandy onver jose a Transaction, Provider Unknown - 07/25/2017 2:49 PM PST Pharmacy Note by Renuka Reno RPH at 07/25/171448 Author: Renuka Reno RPH Service: Pharmacy Author Type: Pharmacist Filed: 07/25/171448 Date of Service: 07/25/17 1449 Status: Signed Welding Machine Operator Submerged Arc: Renuka Reno RPH (Pharmacist) Renal Dosing Monitoring: Andres Mcconnell 87 y.o. male Pharmacy dosing for renal function per Dr. Kanika Harding Estimated Creatinine Clearance: 33.8 mL/min (by C-G formula based on SCr of 1.6 mg/dL (H)). No changes at this time. Pharmacy will continue monitoring patient for appropriate dosing per renal function. 07/25/2017 2:49 PM Pharmacist: RENUKA RENO docume nted in this encounter H&P Notes Yoli Harding MD - 07/25/2017 12:30 PM PST H&P by Yoli Harding MD at 07/25/17 1230 Author: Yoli Harding MD Service: Hospitalist Author Type: Physician Filed: 08/02/17 1117 Date of Service: 07/25/17 1230 Status: Signed Welding Machine Operator Submerged Arc: Yoli Harding MD (Physician) Related Notes: Original Note by Yoli Harding MD (Physician) filed at 07/25/17 1423 [facility] Service: Hospitalist Admission History & Physical Date of Admission: 07/25/2017 Requesting Physician: Emergency Department Reason for Admission: Acute on chronic diastolic congestive heart failure History Obtained From: patient CHIEF COMPLAINT: Dyspnea, weight gain HISTORY OF PRESENT ILLNESS This is a very pleasant 87-year-old male with a past medical history of chronic atrial fibr illation status post pacemaker placement on anticoagulation with warfarin, history of CVA, d iabetes mellitus, hypertension, GERD, history of recent GI bleeding when he was seen at [facility] from June 23, 2017, to June 26. He underwent EGD and colonoscopy at t hat time. EGD showed hiatal hernia with Schatzki ring and small nodules at the duodenal bulb which were not felt to be the source of bleeding. Colonoscopy showed sigmoid diverticulitis which was felt to be contributing to his GI bleeding. He was told to resume Coumadin after 10 days and he started this about 1-1/2 weeks ago. He reports that since the last 1 month he has had progressively worsening shortness of breath since 1 month. He has also noticed orth opnea and PND, and he has been sleeping on a recliner. He denies any chest pain but does hav e orthostatic dizziness. He denies any fevers or chills but has been having a dry cough. He denies any abdominal pain but does have abdominal swelling. He has black stool but he is saige ing iron supplementations currently. He has had a decrease in his urine output and significa nt lower extremity edema. He reports an 18-pound to 20-pound weight gain since the last 1 mo [facility]. He drinks about 3 to 4 L of fluids daily but is compliant with his diet restriction and compliant with his medications. His labs on discharge at the [facility] showe d a hemoglobin of 8.1 and a creatinine of 1.14. Workup in the emergency department revealed normal vitals. Hemoglobin was 8.6. He had stool guaiac test which was negative and stools were brown. Creatinine was elevated at 1.6. Tropo melissa was negative. BNP was 614. EKG showed paced rhythm. He was given 40 mg of Lasix in the emergency department with improvement of his shortness of breath. REVIEW OF SYSTEMS Review of Systems - General ROS: negative ENT: No ear discharge No nasal drainage. No sore throat Endocrine:No cold or heat tolerance. +weight gain Respiratory: + cough, +shortness of breath, no wheezing, +lower extremity edema Cardiovascular: no chest pain, + dyspnea on exertion Gastrointestinal: no abdominal pain, change in bowel habits, +black stools Genitourinary: no dysuria, polyuria, hematuria, +decrease urine output Musculoskeletal: negative No muscle weakness Neurological: no TIA or stroke symptoms Dermatological:No rash Psych: cooperative Past Medical History Diagnosis Date Atrial fibrillation [...] And Related Nausea Only Slow to recover (Not in a hospital admission) Family History Problem Relation Age of Onset Heart disease Father Social History Social History Marital status: Spouse name: N/A Number of children: N/A Years of education: N/A Occupational History retired Social History Main Topics Smoking status: Former Smoker Packs/day: 0.75 Years: 35.00 Types: Cigarettes, Pipe Quit date: 11/28/1981 Smokeless tobacco: Never Used Alcohol use No Comment: 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 NAD HEENT: NCAT CV: RRR. S1S2 normal. no murmer, rubs, or gallops. + JVD Chest: left > Right crackles with coarse rhonchi Abd: SNTND. BS+, no gaurding or ridigity Ext: 3+ pitting edema extending up to thigh. 2+ DP Neuro: Motor/sensations intact. 2+ DTRs DATA CBC: Lab Results Component Value Date WBC 5.40 07/25/2017 RBC 3.08 (L) 07/25/2017 HGB 8.6 (L) 07/25/2017 HCT 27.1 (L) 07/25/2017 MCV 88.0 07/25/2017 MCH 28.1 07/25/2017 MCHC 31.9 (L) 07/25/2017 RDW 53.4 (H) 07/25/2017 PLT 156 07/25/2017 MPV 8.0 07/25/2017 DIFFTYPE AUTOMATED 07/25/2017 CMP: Lab Results Component Value Date NA 141 07/25/2017 K 4.7 07/25/2017 CL 109 07/25/2017 CO2 23 07/25/2017 ANIONGAP 14 07/25/2017 GLUF 106 (H) 07/25/2017 BUN 21 07/25/2017 CREATININE 1.6 (H) 07/25/2017 BCR 13 07/25/2017 CA 8.4 (L) 07/25/2017 PROT 7.2 07/25/2017 ALB 3.4 07/25/2017 GLOB 3.9 07/25/2017 BILITOT 0.5 07/25/2017 ALP 59 07/25/2017 AST 16 07/25/2017 ALT 15 07/25/2017 EGFR 44 (L) 07/25/2017 BMP: Lab Results Component Value Date NA 141 07/25/2017 K 4.7 07/25/2017 CL 109 07/25/2017 CO2 23 07/25/2017 ANIONGAP 14 07/25/2017 GLUF 106 (H) 07/25/2017 BUN 21 07/25/2017 CREATININE 1.6 (H) 07/25/2017 BCR 13 07/25/2017 CA 8.4 (L) 07/25/2017 EGFR 44 (L) 07/25/2017 IMAGING: Xr Chest Pa And Lateral Result Date: 07/25/2017 1. Findings suggestive of mild pulmonary edema. LEM LIST Principal Problem: Acute on chronic diastolic congestive heart failure (HCC) Active Problems: Atrial fibrillation, chronic Cardiac pacemaker in situ HTN (hypertension) HLD (hyperlipidemia) Type 2 diabetes mellitus without complication (HCC) Anemia Acute kidney injury (HCC) ASSESSMENT & PLAN 1. Pqrvu-lq-guwwuli diastolic congestive heart failure most likely secondary to noncomplian ce with fluid restriction. The patient's last echocardiogram was done in November of 2016, whic h showed an EF of 55% to 60% with right ventricular enlargement with mildly impaired systoli c function with mild mitral regurgitation, severely enlarged left atrium, and moderate tricu spid regurgitation with moderate to severe pulmonary hypertension and no pericardial effusio n. Chest x-ray is consistent with pulmonary edema. Also, he may have a component of right-si ded congestive heart failure. We will trend cardiac enzymes to rule out ACS as a cause. Orde red 1.5 L fluid restriction and a 2-g salt restriction. I have started him on Lasix 40 mg b. i.d. We will monitor ins and outs and daily weights. We will repeat echocardiogram. 2. Chronic atrial fibrillation, status post cardiac pacemaker. He is currently rate control led. His Coumadin has been resumed per recommendation of GI and the primary care physician genia t the PA. His INR is subtherapeutic at 1.6. We will resume his Coumadin, monitor INR, and ad just accordingly. 3. Hypertension. Blood pressure is controlled. We will resume his home antihypertensives ex cept for lisinopril in the setting of acute kidney injury. 4. Acute kidney injury, most likely cardiorenal. We will avoid nephrotoxins and monitor cre atinine. We will order bladder scan as well to rule out obstructive etiology. 5. Type 2 diabetes mellitus. Blood sugars are controlled. We will hold glipizide in the set ting of acute kidney injury, start sliding-scale insulin, monitor blood sugars, and check he moglobin A1c. 6. History of CVA. We will continue statin. He is currently on warfarin. We will continue t his, along with aspirin. 7. Anemia, unspecified, most likely due to recent GI bleeding. Also, probably dilutional co mponent as well from volume overload. His guaiac testing is negative. We will continue to mo nitor his hemoglobin, and hopefully this will improve after diuretics. Disposition: inpatient Code Status: No Order DVT PPx: holding chemical ppx due to anemia Diet: Primary Care Physician: JANIE Harding MD 07/25/2017 documented in this en counter ED Notes Neda Reynaga MD MPH - 07/25/2017 10:42 AM PST ED Provider Notes by Mikey Reynaga MD at 07/25/17 1042 Author: Mikey Reynaga MD Service: (none) Author Type: Physician Filed: 07/25/17 1834 Date of Service: 07/25/17 1042 Status: Signed Welding Machine Operator Submerged Arc: Mikey Reynaga MD (Physician) Procedure Orders: 1. POCT occult blood stool [[id number]] ordered by Mikey Reynaga MD at 07/25/17 1410 [facility] Department of Emergency Medicine 10:42 AM History of Present Illness Patient Identification Andres Mcconnell is a 87 y.o. male. Patient information was obtained from patient, spouse/partner and relative(s). History/Exam limitations: none. Patient presented to the Emergency Department by: Car Chief Complaint Chief Complaint Patient presents with Shortness of Breath x 3 weeks The patient with history of CHF, A-Fib, and a pacemaker complains of SOB. Onset of symptoms was several weeks ago, with a worsening course since that time. The patient describes the quality and location of the symptoms as the following: "hard to get air in my lungs". The patric kenny also complains of chest pressure (last night when he laid down, "like a weight on my c hest", resolved when he sat up, no pain), lower extremity edema, and distended abdomen. Shalini oleary had a GI bleed on 06/29 and has had breathing problems every since. Denies fever, change s in urination, vomiting, abdominal pain, or any other symptoms at this time. No care prior to arrival reported. Reports his weight has gone up since hospital admission. Patient last s aw machine feller 6 weeks ago. Does not have a PCP. No history of COPD, emphysema, or asthma. Smoker years ago for about 30 years. Taking Lasix. Tea Taster: Charlee Oswald Past Medical History Diagnosis Date Atrial fibrillation (HCC) chronic CVA (cerebral infarction) hx. of Diabetes mellitus (HCC) GERD (gastroesophageal reflux disease) GI bleed Hypertension Joint pain Past Surgical History Procedure Laterality Date CATARACT EXTRACTION bilateral cholecystectomy 2015 CHOLECYSTECTOMY 10/2015 COLONOSCOPY EYE SURGERY eyelid -lt. eye lift PACEMAKER INSERTION TONSILLECTOMY Prior to Admission medications Medication Sig Start Date End Date Taking? Authorizing Provider amLODIPine (NORVASC) 10 MG tablet Take 10 mg by mouth daily. Historical Provider ascorbic acid (VITAMIN C) 500 MG tablet Take 500 mg by mouth daily. Historical Provider Zbwcdvr-Jfahgmqzm-Bcuxhmq D 600-40-500 MG-MG-UNIT TB24 Take 1,200 mg by mouth daily. His torical Provider furosemide (LASIX) 20 MG tablet Take 20 mg by mouth 2 (two) times daily. Historical Prov ider glipiZIDE (GLUCOTROL) 5 MG tablet Take 2.5 mg by mouth every morning. Historical Provide r lisinopril (ZESTRIL) 20 MG tablet Take 20 mg by mouth 2 (two) times daily. Historical Pr ovider metFORMIN (GLUCOPHAGE) 500 MG tablet Take 500 mg by mouth 3 (three) times daily. Histori prashant Provider metoprolol (LOPRESSOR) 50 MG tablet Take 25 mg by mouth 2 (two) times daily. Historical Provider Multiple Vitamins-Minerals ([facility] PO) Take by mouth daily. Historical Provi immanuel [place]-3 Fatty Acids (OMEGA 3 PO) Take by mouth daily. Historical Provider omeprazole (PRILOSEC) 20 MG capsule Take 20 mg by mouth every morning before breakfast. Historical Provider potassium chloride (K-DUR) 10 MEQ tablet Take 10 mEq by mouth 2 (two) times daily with meal s. Historical Provider pravastatin (PRAVACHOL) 80 MG tablet Take 40 mg by mouth nightly. Historical Provider terazosin (HYTRIN) 10 MG capsule Take 10 mg by mouth nightly. Historical Provider warfarin (COUMADIN) 5 MG tablet Take 5 mg by mouth daily. 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 Skin: No laceration or rash Neuro and psych: No head injury, seizure, headache Endocrine/Heme/Lymph: No easy bruising or bleeding. Physical Exam BP 140/60 (BP Location: Left upper arm) | Pulse 62 | Temp 97.5 F (36.4 C) (Oral) | R elian 28 | Wt 88.3 kg (194 lb 10.7 oz) | SpO2 94% | BMI 34.48 kg/m Vital Sign interpretation: Elevated systolic pressure, tachypneic Pulse Oximetry interpretation: Normal General: Alert, in no apparent distress Eyes: Non-icteric ENT: Normal external exam Neck: Supple Cardiovascular: 2/6 early systolic murmer, RRR Warm and well perfused Respiratory: Coarse rales bilaterally. Slightly tachypneic and doing some belly breathing No respiratory distress Abdomen: Distended but no fluid wave. Extremities: Bilateral pitting edema of lower extremities No calf tenderness OLMSTEAD Back: Normal ROM Skin: Color normal Warm and dry No rash Neuro: Alert, no AMS No gross motor/sensory deficits Medical Decision Making and Emergency Department Course Patient presents with Sob that has been ongoing on ever since admissions in early June for GI bleed. He has had waxing and waning sx that re particularly bad today. Exam notable f or rales in lungs and a lot of peripheral edema. This seems consistent with CHR and pt tells be he has had this diagnosis before. Review of his echocardiogram in March 2017 shows some valvular disease and pulmonary hypertension. Apparently he has had an echocardiogram since then [place] at the recent admission, so perhaps something has changed. I will try to get these records and swill do CXR and lab work in the department. Consider also renal failu re, PE, pneumonia, pneumothorax, anemia, or his pulmonary hypertension as source of his SOB. Supporting this last diagnosis would be the fact hat his saturations are not as low as I wo uld expect with his SOB. Previus echocardiogram from 04/03/17: The left ventricle is normal in size, wall thickness and systolic function EF 55-60%. 2. The right ventricle is moderately enlarged with mildly impaired systolic function. 3. Mild mitral regurgitation with severely enlarged left atrium. 4. Moderate tricuspid regurgitation with moderate to severe pulmonary hypertension RVSP 62 mmHg. 5. There is no pericardial effusion. ED Department Course Pt is short of breath with a gain of twenty pounds in the last month and a lot of pedal roe ma. He is in need of diuresis. His hgb is not as high as would be expected since his bleed ing was stopped and he was put on iron, but this could be dilutional. He is guaiac negative . There could be some sx from his pulmonary hypertension as well. Considered his anemia an d PE as other potential sources of sx. Clinically, this is CHF. Labs, cxr, ekg, etc. Ordered for further eval. 11:22 AM BNP 614. 11:27 AM Troponin normal. CXR resulted. Findings suggestive of mild pulmonary edema. Cardiac panel reveals mild anemia and decreased EGFR, but is otherwise unremarkable. Given lasix IV. I have ordered US of legs to feel better that there is no PE at play. 11:42 AM Rechecked patient. Discussed admission. Patient and family are agreeable with admission. Wi ll consult with hospitalist. 12:03 PM Looked through old records. I do not see any more recent echocardiograms or discussion on C HF. This may have been done with [facility] and not show in our records here. 12:[address] Kanika Harding, Hospitalist, who accepts the patient for admission. 1:[address] Harding is on the floor and examining patient. 2:04 PM Rechecked patient. Discussed lab results and need to perform stool guaiac test. Patient is agreeable. 2:10 PM Performed stool guaiac test. Revealed brown stool and guaiac negative. Pt doing fine in ED. Records Reviewed Old medical records. Nursing notes. Laboratory Evaluation Results Procedure Component Value Ref Range Date/Time Cardiac Panel [[id number]] (Abnormal) Collected: 07/25/17 1051 Order Status: Completed Updated: 07/25/17 1127 WBC 5.40 3.80 - 11.00 K/uL RBC 3.08 (L) 4.20 - 5.70 M/uL HGB 8.6 (L) 13.2 - 17.0 g/dL HCT 27.1 (L) 39.0 - 50.0 % MCV 88.0 80.0 - 100.0 fl MCH 28.1 27.0 - 34.0 pg MCHC 31.9 (L) 32.0 - 35.5 g/dL RDW SD 53.4 (H) 37 - 53 fl PLT 156 150 - 400 K/uL MPV 8.0 fl DIFF TYPE AUTOMATED NEUTROPHILS 78.19 % LYMPHOCYTES 10.28 % MONOCYTES 8.98 % EOSINOPHILS 1.60 % BASOPHILS 0.95 % NEUTROPHILS ABS 4.22 1.90 - 7.40 K/uL LYMPHOCYTES ABS 0.56 (L) 1.00 - 3.90 K/uL MONOCYTES ABS 0.49 0.00 - 0.80 K/uL EOSINOPHILS ABS 0.09 0.00 - 0.50 K/uL BASOPHILS ABS 0.05 0.00 - 0.10 K/uL SODIUM 141 135 - 145 mmol/L POTASSIUM 4.7 3.5 - 4.9 mmol/L CHLORIDE 109 99 - 109 mmol/L CO2 23 23 - 32 mmol/L ANION GAP AGAP 14 5 - 20 mmol/L GLUCOSE 106 (H) 65 - 99 mg/dL BUN 21 8 - 25 mg/dL CREATININE 1.6 (H) 0.70 - 1.30 mg/dL BUN/CREAT 13 CALCIUM 8.4 (L) 8.5 - 10.5 mg/dL TOTAL PROTEIN 7.2 6.3 - 8.2 g/dL Albumin 3.4 3.3 - 4.8 g/dL GLOBULIN 3.9 1.3 - 4.9 g/dL A/G 0.9 (L) 1.0 - 2.4 TBIL 0.5 0.1 - 1.5 mg/dL ALK PHOS 59 35 - 115 U/L AST 16 10 - 45 U/L ALT 15 10 - 65 U/L EGFR 44 (L) >60 mL/min/1.73m2 CPK 68 55 - 400 U/L INR 2.8 APTT 35 (H) 23 - 32 seconds MMB 2.2 0.5 - 3.6 ng/mL CK-MB Index 3.2 Troponin I, Lab [[id number]] Collected: 07/25/17 105 Order Status: Completed Specimen: Blood Updated: 07/25/17 1127 TROPONIN I <0.020 0.00 - 0.10 ng/mL BNP [[id number]] (Abnormal) Collected: 07/25/17 1051 Order Status: Completed Specimen: Blood Updated: 07/25/17 1122 BRAIN NATRIURETIC PEPTIDE 614 (H) 0 - 100 pg/mL I personally reviewed the lab results and they have been posted to the chart. Pertinent po sitive and negative findings have been addressed appropriately. Radiology and EKG Evaluation Imaging Results US Lower Extremity - Venous Bilateral (Final result) Result time 07/25/17 13:46:16 Final result by Robe Dickson MD (07/25/17 13:46:16) Impression: 1. No definitive evidence of lower extremity deep vein thrombosis. Narrative: ANDRES MCCONNELL US LOWER EXTREMITY VENOUS DOPPLER BILAT 07/25/2017 1:30 PM HISTORY: 87 years. Male. Bilateral leg swelling TECHNIQUE: Bilateral lower extremity venous Doppler performed with color Doppler and spectral Doppler waveform analysis. Duplex Doppler analysis. COMPARISON: None. FINDINGS: Normal compressibility, augmentation of flow, and Doppler flow evident within the deep veno us system on the right from the common femoral vein to the popliteal vein, and on the left f rom the common femoral vein to the level of the posterior tibial and peroneal veins in the l eft calf. No definitive color flow seen in the right peroneal and posterior tibialis vein, w ith complete vessel compressibility noted. XR Chest PA and Lateral (Final result) Result time 07/25/17 11:27:45 Final result by Kb Hill MD (07/25/17 11:27:45) Impression: 1. Findings suggestive of mild pulmonary edema. Narrative: ANDRES MCCONNELL 1930 87 years Male XR CHEST 2 VIEW FRONTAL AND LATERAL 07/25/2017 11:18 AM INDICATION: Shortness of breath COMPARISON: None. TECHNIQUE: Two view chest, PA and lateral views FINDINGS: The patient has a right anterior chest wall pacer with a single lead. The cardiom ediastinal contours are normal. There is moderate calcification of the aortic arch. There is no pneumothorax. Mild vascular congestion is present. Hazy opacities of the lower lung bila terally probably reflect atelectasis. Generalized osteopenia is noted. There appear to be bi lateral small layering pleural effusions. EKG Interpretation Time: 1035 Ventricular Rate: 60 bpm Rhythm: Ventricular paced No acute ST changes meeting criteria Normal QRS Normal ST Normal T waves Similar to previous EKG in November 2016. This was read and interpreted by myself, the attending provider. 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 Performed by ED provider. Hemoccult senior quality assurance engineer Passed. Attending Provider Note: IMikey MD personally performed the services described i n this documentation, as scribed by Jaki Castaneda in my presence, and it is both accurate and c omplete. Chart Reviewed and Completed: 07/25/2017 6:30 PM Scribe: Krysta Parham, scribing for and in the presence of Mikey Reynaga MD. Signed by: Krysta Mendiola 07/25/2017 4:14 PM Mikey Reynaga MD 07/25/17 1834 onversion Transgenia dunbar, Provider Unknown - 07/25/2017 10:10 AM PST ED Notes by Michelle Dawson RN at 07/25/17 1010 Author: Michelle Dawson RN Service: (none) Author Type: Registered Nurse Filed: 07/25/17 1048 Date of Service: 07/25/17 1010 Status: Signed Welding Machine Operator Submerged Arc: Michelel Dawson RN (Registered Nurse) 87 yr old male arrives with audible expiratory wheezes, and labored breathing with prolonge d expiratory phase. Patient reports that last night when he was in bed he felt like there w as a weight on his chest. Patient reports sleeping in a recliner because he becomes SOB whe n laying in bed. Patient is place on O2 with decrease in symptoms. Patient is noted to hav e 2+ bilateral pedal edema to the knees. Patient reports approximate 20 lb weight gain in t he past month. Michelle Dawson RN 07/25/17 1048 docume nted in this encounter Miscellaneous Notes Plan of Care - Conversion Transaction, Provider Unknown - 07/29/2017 1:00 PM PST Plan of Care by Valeria Martinez RN at 07/29/17 1300 Author: Valeria Martinez RN Service: (none) Author Type: Registered Nurse Filed: 07/29/17 1431 Date of Service: 07/29/17 1300 Status: Signed Welding Machine Operator Submerged Arc: Valeria Martinez RN (Registered Nurse) Problem: Discharge Barriers Goal: Patient's discharge needs are met Collaborate with interdisciplinary team and initiate plans and interventions as needed. Outcome: Progressing Patient discharged home today with family. All needs met. Comments: Patient discharging home with family today. All vital signs stable. VALERIA MARTINEZ RN lan o f Care - Conversion Transaction, Provider Unknown - 07/28/2017 10:09 PM PSTFormatting of thi s note might be different from the original. Plan of Care by Wanda Levien RN at 07/28/172208 Author: Wanda Levine RN Service: (none) Author Type: Registered Nurse Filed: 07/29/17 0552 Date of Service: 07/28/172208 Status: Addendum Welding Machine Operator Submerged Arc: Wanda Levine RN (Registered Nurse) Related Notes: Original Note by Wanda Levine RN (Registered Nurse) filed at 07/28/17 2 209 Problem: Hemodynamic Status Goal: Patient's vitals signs are stable Assess and monitor patient's heart rate, rhythm, respiratory rate, peripheral pulses, capil suzi refill, color, body temperature, intake and output, labs and physical activity toleranc e. Observe for signs of chest pain (note location, duration, severity, radiation and assoc iated symptoms such as diaphoresis, nausea, indigestion). Monitor for signs and symptoms of heart failure (eg. shortness of breath, edema of feet/ankles/legs, rapid irregular heart ra te, coughing, wheezing, white/pink blood tinged sputum, sudden weight gain, chest pain). Col laborate with interdisciplinary team and initiate plan and interventions as ordered. Outcome: Progressing Pt's vital signs stable. Problem: Safety Goal: Patient will be injury free during hospitalization Assess and monitor vitals signs, neurological status including level of consciousness and o rientation. Assess patient's risk for falls and implement fall prevention plan of care and i nterventions per hospital policy. Ensure arm band on, uncluttered walking paths in room, adequate room lighting, call light a nd overbed table within reach, bed in low position, wheels locked, side rails up per policy, and non-skid footwear provided. Outcome: Progressing Pt remains injury free. Pt independent in room but knows to use call light if he needs help . Pt A+Ox4, VSS, denies pain. Pt BP elevated to 153/67 this AM, but said he doesn't feel well when he gets hydralazine. HR 60. Dr Dawkins was called to see if Norvasc could be given at 0545 instead of 0900 to treat BP, permission given. Wanda Levine RN lan o f Care - Conversion Transaction, Provider Unknown - 07/28/2017 5:27 PM PSTFormatting of thi s note might be different from the original. Plan of Care by Valeria Martinez RN at 07/28/171726 Author: Valeria Martinez RN Service: (none) Author Type: Registered Nurse Filed: 07/28/171728 Date of Service: 07/28/171726 Status: Signed Welding Machine Operator Submerged Arc: Valeria Martinez RN (Registered Nurse) Problem: Fluid and Electrolyte Imbalance Goal: Fluid and electrolyte balance are achieved/maintained Assess and monitor vital signs (orthostatic vitals if applicable), fluid intake and output, urine color, labs, skin turgor, mucous membranes, jugular venous distention, edema, circumf erence of edematous extremities and abdominal girth, respiratory status, and mental status. Monitor for signs and symptoms of hypovolemia (tachycardia, rapid breathing, decreased urin e output, postural hypotension, confusion, syncope). Monitor for signs and symptoms of hype rvolemia (strong rapid pulse, shortness of breath, difficulty breathing lying down, crackles heard in lung vincent, edema). Collaborate with interdisciplinary team and initiate plan and interventions as ordered. Outcome: Progressing Patient compliant with fluid restriction of 1800, output this shift was 780ml. Problem: Inadequate Gas Exchange Goal: Patient is adequately oxygenated and ventilation is improved Assess and monitor vital signs, oxygen saturation, respiratory status to include rate, dept h, effort, and lung sounds, mental status, cyanosis, and labs (ABG's). Monitor effects of m edications that may sedate the patient. Collaborate with respiratory therapy to administer medications and treatments. Outcome: Progressing Patient on room air throughout day shift with no complaints of shortness of breath. Oxygen saturation remaining above 90% throughout shift. Comments: Patient medicated with prn Hydralazine x1 for elevated blood pressure. All other vital signs stable at this time. Patient resting comfortably in bed. Family at bedside for p art of shift. Plan is for patient to discharge home with family tomorrow. VALERIA MARTINEZ RN lan o f Care - Conversion Transaction, Provider Unknown - 07/28/2017 5:12 AM PSTFormatting of thi s note might be different from the original. Plan of Care by Stacey Ley RN at 07/28/17511 Author: Stacey Ley RN Service: (none) Author Type: Registered Nurse Filed: 07/28/17511 Date of Service: 07/28/17511 Status: Signed Welding Machine Operator Submerged Arc: Stacey Ley RN (Registered Nurse) Problem: Fluid and Electrolyte Imbalance Goal: Fluid and electrolyte balance are achieved/maintained Assess and monitor vital signs (orthostatic vitals if applicable), fluid intake and output, urine color, labs, skin turgor, mucous membranes, jugular venous distention, edema, circumf erence of edematous extremities and abdominal girth, respiratory status, and mental status. Monitor for signs and symptoms of hypovolemia (tachycardia, rapid breathing, decreased urin e output, postural hypotension, confusion, syncope). Monitor for signs and symptoms of hype rvolemia (strong rapid pulse, shortness of breath, difficulty breathing lying down, crackles heard in lung vincent, edema). Collaborate with interdisciplinary team and initiate plan and interventions as ordered. Outcome: Progressing VS monitored throughout shift. Patient again de-saturated during the night requiring use o f supplemental O2. I/O's carefully monitored and charted throughout shift. Problem: Safety Goal: Patient will be injury free during hospitalization Assess and monitor vitals signs, neurological status including level of consciousness and o rientation. Assess patient's risk for falls and implement fall prevention plan of care and i nterventions per hospital policy. Ensure arm band on, uncluttered walking paths in room, adequate room lighting, call light a nd overbed table within reach, bed in low position, wheels locked, side rails up per policy, and non-skid footwear provided. Outcome: Progressing Patient calls appropriately for assistance; remains free of injury. Problem: Psychosocial Needs Goal: Demonstrates ability to cope with hospitalization/illness Assess and monitor patients ability to cope with his/her illness. Outcome: Progressing Patient appears to be coping well with hospitalization; noted to rest comfortably throughou t the shift. lan o f Care - Conversion Transaction, Provider Unknown - 07/27/2017 3:30 PM PSTFormatting of thi s note might be different from the original. Plan of Care by Candice Rodriguez RN at 07/27/171529 Author: Candice Rodriguez RN Service: (none) Author Type: Registered Nurse Filed: 07/27/171529 Date of Service: 07/27/171529 Status: Signed Welding Machine Operator Submerged Arc: Candice Rodriguez RN (Registered Nurse) Problem: Fluid and Electrolyte Imbalance Goal: Fluid and electrolyte balance are achieved/maintained Assess and monitor vital signs (orthostatic vitals if applicable), fluid intake and output, urine color, labs, skin turgor, mucous membranes, jugular venous distention, edema, circumf erence of edematous extremities and abdominal girth, respiratory status, and mental status. Monitor for signs and symptoms of hypovolemia (tachycardia, rapid breathing, decreased urin e output, postural hypotension, confusion, syncope). Monitor for signs and symptoms of hype rvolemia (strong rapid pulse, shortness of breath, difficulty breathing lying down, crackles heard in lung vincent, edema). Collaborate with interdisciplinary team and initiate plan and interventions as ordered. Outcome: Progressing Accurately measuring I/Os. MD requested additional lasix be given, pt tolerated well. Mon itoring for signs of electrolyte imbalances. Intervention: Monitor patient's weight Daily weights are being taken on a standing scale to ensure accuracy. Accurate I/Os are be ing charted. lan o f Care - Conversion Transaction, Provider Unknown - 07/27/2017 4:38 AM PSTFormatting of thi s note might be different from the original. Plan of Care by Bhumi Chaparro RN at 07/27/17437 Author: Bhumi Chaparro RN Service: (none) Author Type: Registered Nurse Filed: 07/27/17437 Date of Service: 07/27/17437 Status: Signed Welding Machine Operator Submerged Arc: Bhumi Chaparro RN (Registered Nurse) Problem: Safety Goal: Patient will be injury free during hospitalization Assess and monitor vitals signs, neurological status including level of consciousness and o rientation. Assess patient's risk for falls and implement fall prevention plan of care and i nterventions per hospital policy. Ensure arm band on, uncluttered walking paths in room, adequate room lighting, call light a nd overbed table within reach, bed in low position, wheels locked, side rails up per policy, and non-skid footwear provided. Outcome: Progressing Patient calling approprietly through shift. Will continue to monitor. Bhumi Young RN lan o f Care - Conversion Transaction, Provider Unknown - 07/27/2017 4:36 AM PSTFormatting of thi s note might be different from the original. Plan of Care by Bhumi Chaparro RN at 07/27/17435 Author: Bhumi Chaparro RN Service: (none) Author Type: Registered Nurse Filed: 07/27/17435 Date of Service: 07/27/17435 Status: Signed Welding Machine Operator Submerged Arc: Bhumi Chaparro RN (Registered Nurse) Problem: Safety Goal: Patient will be injury free during hospitalization Assess and monitor vitals signs, neurological status including level of consciousness and o rientation. Assess patient's risk for falls and implement fall prevention plan of care and i nterventions per hospital policy. Ensure arm band on, uncluttered walking paths in room, adequate room lighting, call light a nd overbed table within reach, bed in low position, wheels locked, side rails up per policy, and non-skid footwear provided. Outcome: Progressing Patient using call light appropriately through shift. Will continue to monitor. Bhumi love RN lan o f Care - Conversion Transaction, Provider Unknown - 07/26/2017 6:04 AM PSTFormatting of thi s note might be different from the original. Plan of Care by Bhumi Chaparro RN at 07/26/17603 Author: Bhumi Chaparro RN Service: (none) Author Type: Registered Nurse Filed: 07/26/17603 Date of Service: 07/26/17603 Status: Signed Welding Machine Operator Submerged Arc: Bhumi Chaparro RN (Registered Nurse) Problem: Safety Goal: Patient will be injury free during hospitalization Assess and monitor vitals signs, neurological status including level of consciousness and o rientation. Assess patient's risk for falls and implement fall prevention plan of care and i nterventions per hospital policy. Ensure arm band on, uncluttered walking paths in room, adequate room lighting, call light a nd overbed table within reach, bed in low position, wheels locked, side rails up per policy, and non-skid footwear provided. Outcome: Progressing Patient calling appropriately through shift. Will continue to monitor. Bhumi Young RN lan o f Care - Conversion Transaction, Provider Unknown - 07/25/2017 3:15 PM PSTFormatting of thi s note might be different from the original. Plan of Care by Valeria Martinez RN at 07/25/171514 Author: Valeria Martinez RN Service: (none) Author Type: Registered Nurse Filed: 07/25/171515 Date of Service: 07/25/171514 Status: Signed Welding Machine Operator Submerged Arc: Valeria Martinez RN (Registered Nurse) Problem: Fluid and Electrolyte Imbalance Goal: Fluid and electrolyte balance are achieved/maintained Assess and monitor vital signs (orthostatic vitals if applicable), fluid intake and output, urine color, labs, skin turgor, mucous membranes, jugular venous distention, edema, circumf erence of edematous extremities and abdominal girth, respiratory status, and mental status. Monitor for signs and symptoms of hypovolemia (tachycardia, rapid breathing, decreased urin e output, postural hypotension, confusion, syncope). Monitor for signs and symptoms of hype rvolemia (strong rapid pulse, shortness of breath, difficulty breathing lying down, crackles heard in lung vincent, edema). Collaborate with interdisciplinary team and initiate plan and interventions as ordered. Outcome: Progressing Patient on a 1.5L fluid restriction, patient agreeable to fluid restriction and understands importance of monitoring all intake and output. Problem: Inadequate Gas Exchange Goal: Patient is adequately oxygenated and ventilation is improved Assess and monitor vital signs, oxygen saturation, respiratory status to include rate, dept h, effort, and lung sounds, mental status, cyanosis, and labs (ABG's). Monitor effects of m edications that may sedate the patient. Collaborate with respiratory therapy to administer medications and treatments. Outcome: Progressing Patient on 2L of oxygen sating at 99%. Patient reporting worsening SOB during exertion, enc ouraged patient to rest in bed. Comments: Patient has maintained stable vital signs since admission to floor. and daug hter at bedside. Patient resting comfortably in bed at this time. VALERIA MARTINEZ RN AHumphrey langston - Conversion Transaction, Provider Unknown - 07/25/2017 2:38 PM PSTFormatting of th is note might be different from the original. Medication History by Ramandeep Abbott RPH at 07/25/17 1438 Author: Ramandeep Abbott RPH Service: Pharmacy Author Type: Pharmacist Filed: 07/25/171437 Date of Service: 07/25/171437 Status: Signed Welding Machine Operator Submerged Arc: Ramandeep Abbott RPH (Pharmacist) Rx Admission Medication History Note I have reviewed the medication history for appropriate doses obtained by: Pharmacy Medicat ion History Crew Boss. After reviewing the home medication list : I agree with the home medication list. - Removed aspirin as no longer taking - Patient does not follow with the [facility], however, he knew his doses and t akes it every night at 1800. Last does was 07/24/17 Please Review and Order Home Medications as necessary. Thanks Ramandeep Abbott RPH 07/25/2017 2:37 PM >> Donna Hernandez CPhT 07/25/2017 14:29 Rx Medication History Crew Boss Note Patients Preferred Pharmacy has been updated in EPIC: yes -[id number] - [place], [place] - [address] [place] [address] Patients Allergies have been updated and marked as reviewed: yes Codeine and Morphine and related The following changes were made to the allergy list (if any): none Medication History provided by: Patient, Family Member and Care Everywhere Follow-up Issues: None - Pending Pharmacist Review High Risk Medications (dual source verification needed): Anticoagulants Patient, Family member- Warfarin Changes made to the medication list include: Flagged for deletion- Asprin - not taking Reliability of information obtained: RELIABLE Additional Comments: none Medication history has been completed: *Awaiting Pharmacist Final Review* Donna Hernandez CPhT 07/25/2017 2:27 PM Rey orozco in this encounter Plan of Treatment +--------+---------+ + + + | Date | Type | Specialty | Care Team | Description | +--------+---------+ + + + | 03/17/ | Office | Orthopedic Surgery | Melquiades Baez | | 2019 | Visit | | DO [address] | | | | | | [place] [address], | | | | | | [place] [address] | | | | | | [phone] | | | | | | | | +--------+---------+ + + + | 04/21/ | Office | Nephrology | Isiah Jade MD | | 2019 | Visit | | [address] [facility] | | | | | | [address] | | | | | | [address] | | | | | | | | +--------+---------+ + + + | 05/07/ | Office | Cardiology | Tatoleena Charlee | | | 2020 | Visit | | [address] | | | | | | [address] | | | | | | [place] [address] | | | | | | [phone] | | | | | | | [...] | | | Fingerstick | performed at [facility];[address] | | LAB | | | [address];[place], [place] | | | | | | [address] | | | | + + + [...] | | | Fingerstick | performed at [facility];[address] | | LAB | | | | [address];[place] | | | | | | [address] | | | | + + + [...] | | | Fingerstick | performed at [facility];[address] | | LAB | | | | [address];[place], [place] | | | | | | [address] | | | | + + + [...] | | | | | performed at [facility];[address] | | | | | | [address];[place] | | | | | | [address] | | | | + + + [...] + + + + | Non- | 2.85 (L) | 4.20 - 5.70 [...] | | | Basophils | performed at [facility], [address] | [address] | LAB | | | | [address], | | | | | | [place] [address] | | | | + + + [...] EXTERNAL | | | | performed at [facility], [address] | | LAB | | | | [address], | | | | | | [place] [address] | | | | + + [...] | | | | | | at [facility], [address] | | | | | | [address], | | | | | | [place] [address] | | | | + + + [...] | | | Fingerstick | performed at [facility];[address] | | LAB | | | [address];[place], [place] | | | | | | [address] | | | | + + + [...] | | | Fingerstick | performed at [facility];888 | | LAB | | | | Rosalia Mccain;[place] | | | | | | [address] | | | | + + + [...] | | | Fingerstick | performed at [facility];888 | | LAB | | | | Rosalia Mccain;[place] | | | | | | [address] | | | | + + + [...] RECEIVEDAbnormal | | | Testing performed at [facility];[address] [place] [address];[place] [address] | | + + + + +---------+ [...] | | | Fingerstick | performed at [facility];[address] | | LAB | | | | [address];[place], [place] | | | | | | [address] | | | | + + + + + + + + | Specimen | + + | | + + + +---------+ + + | Performing | Address | City/State/Zipcode | Phone Number | | Organization | | | | + +---------+ + + | EXTERNAL LAB | | | | + +---------+ + + Tabbyime JORDAN (07/28/2017 4:42 AM PST) + + + [...] | | | | | performed at [facility];[address] | | | | | | [facility];[place], [place] | | | | | | [address] | | | | + + + [...] + + + + | Non- | 2.70 (L) | 4.20 - 5.70 [...] | | | Basophils | performed at [facility], [address] | K/uL | LAB | | | | Gurpreet Mccain, | | | | | | [place] [address] | | | | + + + [...] | | | | | | at [facility], [address] | | | | | | Gurpreet Mccain, | | | | | | [place] [address] | | | | + + + [...] | | | Fingerstick | performed at [facility];[address] | | LAB | | | | [address];[place] | | | | | | [address] | | | | + + + [...] | | | Fingerstick | performed at [facility];[address] | | LAB | | | | [address];[place], [place] | | | | | | [address] | | | | + + + [...] | | | Urine | performed at [facility], [address] | | | | | | [address]cc[address], | | | | | | [place] [address] | | | | + + + [...] LAB | | | | performed at [facility], [address] | | | | | | [address], | | | | | | [place] [address] | | | | + + + [...] | | | Fingerstick | performed at [facility];[address] | | LAB | | | | [address];[place], [place] | | | | | | [address] | | | | + + + [...] | | | Fingerstick | performed at [facility];[address] | | LAB | | | | [address];[place], [place] | | | | | | [address] | | | | + + + [...] | | | | | [place] [address] | | | | + + + [...] | | | | | performed at [facility] | | | | | | [address] [facility];[place], [place] | | | | | | [address] | | | | + + + [...] | | | Reticulocyt | performed at [facility], [address] | | LAB | | | e Count | Gurpreet Mccain, | | | | | | [place] [address] | | | | + + + [...] + + + + | Non- | 2.81 (L) | 4.20 - 5.70 [...] | | | Basophils | performed at [facility], [address] | K/uL | LAB | | | | Gurpreet Mccain, | | | | | | [place] [address] | | | | + + + [...] | | | External | performed at [facility], [address] | | LAB | | | | Gurpreet Mccain, | | | | | | [place] [address] | | | | + + [...] | | | | | | at [facility], [address] | | | | | | Gurpreet Mccain, | | | | | | [place] [address] | | | | + + + [...] | | | Fingerstick | performed at [facility];[address] | | LAB | | | | [address] Mccain;[place] | | | | | | [address] | | | | + + + [...] | | | Fingerstick | performed at [facility];[address] | | LAB | | | | [address];[place] | | | | | | [address] | | | | + + + [...] | | | Fingerstick | performed at [facility];[address] | | LAB | | | | Rosalia Mccain;[place] | | | | | | [address] | | | | + + + [...] + + + | Patient Name: Andres Mcconnell Date of : 1930 | | [...] aortic stenosis. | | | Mitral Valve: Mwsu-ub-akrgtsyw mitral regurgitation is present. | | | [...] 1.88 cm AR Dec | | | [place]: 2.33 m/s2 AR Dec Time: 1398.10 ms [...] TV A Good: 0.32 m/s TV Dec [place]: 2.31 m/s2 | | | TV Dec Time: 215.03 ms TV E Good: 0.49 m/s TV E/A Ratio: | | | 1.53 Vp Publisher Development: DOMITILA Authenticated by: JENNIFER SWAIN MD | | | Report Date/Time: -- [id number]:39:27 | | + + + + + | Procedure Note | + + | Kobe, Rad Conversion - 04/03/2019 7:51 PM PDT Patient [...] evidence of aortic stenosis.Mitral Valve: | | Eayo-bg-oddcbvyc mitral regurgitation is present.Mitral Valve: Mild mitral [...] BPMR-R: 973.47 msLAESV(A-L): 99.35 mlLAAs A2C: 27.25 [id number] A-L A2C: 99.85 | | mlLAESV MOD A2C: 93.96 mlLALs A2C: 6.31 cmLAAs A4C: 26.56 [id number] A-L A4C: | | 96.85 mlLAESV MOD A4C: 88.08 mlLALs A4C: 6.18 cmTAPSE: 1.88 cmAR Dec [place]: 2.33 | | m/s2AR Dec Time: 1398.10 msAR maxP.73 mmHgAR PHT: 405.45 msAR Vmax: 3.26 | | m/sHR: 64.46 BPMAV maxP.44 mmHgAV meanP.16 mmHgAV Vmax: 1.36 m/Armen | | Vmean: 0.98 m/Armen VTI: 29.20 cmAVA Vmax: 2.97 cm2AVA (VTI): 2.95 nb9ZIHT Dopp: | | 5.01 l/minHR: 58.18 BPMLVOT [...] A | | Good: 0.32 m/sTV Dec [place]: 2.31 m/s2TV Dec Time: 215.03 msTV E Good: 0.49 m/sTV | | E/A Ratio: 1.53 Vp Publisher Development: GDAuthenticated by: JENNIFER SWAIN [facility] | | Date/Time: -- [id number]:27 IMPRESSION: 1. Left ventricular systolic function is [...] | |TAPSE: 1.88 cm | |AR Dec [place]: 2.33 m/s2 | |AR Dec Time: 1398.10 [...] A Good: 0.32 m/s | |TV Dec [place]: 2.31 m/s2 | |TV Dec Time: 215.03 ms | |TV E Good: 0.49 m/s | |TV E/A Ratio: 1.53 | | | |Vp Publisher Development: GD | |Authenticated by: JENNIFER SWAIN MD | |Report Date/Time: -- [id number]:27 | | | |IMPRESSION: | |1. Left [...] | | | Fingerstick | performed at [facility];[address] | | LAB | | | | [address];[place], [place] | | | | | | [address] | | | | + + + [...] | | | | | performed at [facility] | | | | | | [facility];[place], [place] | | | | | | [address] | | | | + + + [...] + + + + | Non- | 2.76 (L) | 4.20 - 5.70 [...] | | | Basophils | performed at [facility], [address] | K/uL | LAB | | | | Gurpreet Mccain, | | | | | | [place] [address] | | | | + + + [...] EXTERNAL | | | | performed at [facility], [address] | uIU/mL | LAB | | | | [address]cc[address], | | | | | | [place] [address] | | | | + + + [...] | | | | | [place] [address] | | | | + + + [...] EXTERNAL | | | | performed at [facility];[address] | | LAB | | | | [address];[place], [place] | | | | | | [address] | | | | + + + [...] EXTERNAL | | | | performed at [facility], [address] | | LAB | | | | Gurpreet Mccain, | | | | | | [place] [address] | | | | + + + [...] + + | Hemoglobin | 5.5Comment: The Palestinian | 4.0 - 6.0 % | EXTERNAL [...] | | | | | performed at [facility], [address] | | | | | | [facility], | | | | | | [place] [address] | | | | + + + [...] | | | | | | at [facility], [address] | | | | | | Gurpreet Mccain, | | | | | | [place] [address] | | | | + + + [...] | | | | | | ACUTE [place] Testing | | | | | | performed at [facility] | | | | | | [facility];[place], [place] | | | | | | [address] | | | | + + + [...] | | | Fingerstick | performed at [facility];[address] | | LAB | | | | Rosalia Mccain;[place] | | | | | | [address] | | | | + + + [...] | | | | | | ACUTE [place] Testing | | | | | | performed at [facility];[address] | | | | | | [address];[place], [place] | | | | | | [address] | | | | + + + [...] | | | Fingerstick | performed at [facility];[address] | | LAB | | | | Rosalia Mccain;[place] | | | | | | [address] | | | | + + + [...] Performed At | + + + | ANDRES MCCONNELL LOWER EXTREMITY VENOUS DOPPLER BILAT 07/25/2017 [...] | + + | Leonides Bullock - 04/03/2019 7:51 PM PDT ANDRES Kilpatrick MAEGANTamia LOWER EXTREMITY | | VENOUS DOPPLER BIL07/25/2017 1:30 PM HISTORY:87 years. Male. Bilateral leg [...] Performed At | + + + | ANDRES MCCONNELL 1930 87 years Male XR CHEST 2 [...] Rad Conversion - 04/03/2019 7:51 PM PDT ANDRES Kilpatrick [id number] years MaleXR | | CHEST 2 VIEW FRONTAL AND PTBXKQC78/5/2017 11:18 AM INDICATION: Shortness of breath | [...] + + + + + -+ | Non- | 3.08 (L) | 4.20 - 5.70 [...] | | | | | | ACUTE [place] Testing | | | | | | performed at [facility];[address] | | | | | | [address] Mccain;[place], [place] | | | | | | [address] | | | | + + + [...] EXTERNAL | | | | performed at [facility];[address] | | LAB | | | | Rosalia Mccain;[place] | | | | | | [address] | | | | + + + [...] | | Performed by ED provider. Hemoccult senior quality assurance engineer Passed. | | + + + + [...] (500), | | | | | | editor continuity and script ART BROWN (2) | | | | | | on 07/25/2017 5:09:42 PM | | | | | | | | | | + + + + + + + + | Specimen | + + | | + + + + + | Narrative | Performed At | + + + | Historically converted [facility] from [facility] Epic environment | EXTERNAL LAB | + + [...]
--- OUTSIDE RECORDS SUMMARY | ~2020-03-05 | XMS | Encounter Summary ---
Demographics + + + | Address | [address] | | | [place] [address] | + + + | Home Phone | | + + + | Preferred Language | Unknown | + + + | Marital Status | | + + + | Cheondoism Affiliation | 1001 | + + + | Race | Unknown | + + + | Ethnic Group | Unknown | + + + Author + + + | Author | [facility] | | | and [place] | + + + | Organization | [facility] | | | [...] [place] | | | | | [address] | | + + + + + | Deanna Lawson | ECON | Unknown | | + + + + + Care Team Providers + +------+ + | Care Electronic Assembler Group Leader Name | Role | Phone | + +------+ + | Barbara Gilman MD | PCP | | + +------+ + Encounter Details +--------+---------+ + + + | Date | Type | Department | Care Team | Description | +--------+---------+ + + + | 05/07/ | Office | [facility] | Enoch Thompson, | Cardiac pacemaker in | | 2019 | Visit | CARDIOLOGY [place] | [address] | situ; Permanent | | | | [address] | [place] Giancarlo [place]ACIN[place], | atrial fibrillation | | | | [place], [place] | [place] [address] | ([facility]) | | | | [address] | [phone] | | | | | [phone] | | | +--------+---------+ + + + [...] pacemaker in situ Overview He has a [employer] Altrua single-chamber RV pacemaker that was [...] function was seen tofrancesca marcus for this [employer] single-chamber device. The pacing threshold was [...] mild concentric LVH. He has a single-chamber [employer] ventricular pacemaker that is nearing elective [...] mild concentric LVH. He has a single-chamber [employer] ventricular pacemaker that is nearing elective replacement indicator status. He has been pacing the right ventricle 99% o f the time. Anticoagulated with apixaban. He has only been taking 2.5 mg twice per day, because of cierra al dysfunction and age. The chads 2 vascular score is 4. 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 Priority: High Note Last Updated: 05/07/2019 He has a [employer] Altrua single-chamber RV pacemaker that was [...] function was seen tofrancesca marcus for this Drive[employer] single-chamber device. The pacing threshold was 0.6 [...] arora. Type 2 diabetes mellitus without complication ([facility]) 06/04/2015 Reading: Continue current therapy. I can [...] notes on file Myrtle Esteves Me dical Business Support Liaison - 05/07/2019 11:30 AM Sheela COOPER Note- [...] | | | | | | [place] [address] | | | | | | [phone] | | | | | | | | +--------+---------+ + + + | 04/21/ | Office | Nephrology | Isiah Jade MD | | | 2019 | Visit | | [address] | | | | | | [address] [place] | | | | | | [address] | | | | | | | | +--------+---------+ + + + | 05/07/ | Office | Cardiology | Charlee Oswald | | | 2019 | Visit | | [address] | | | | | | [address] | | | | | | [place] [address] | | | | | | [phone] | | | | | | | | +--------+---------+ + + + documented as of this encounter Visit Diagnoses + + | Diagnosis | + + | Cardiac pacemaker in situ | + + | Permanent atrial fibrillation (HCC) Atrial fibrillation | + + documented in this encounter
--- OUTSIDE RECORDS SUMMARY | ~2020-03-05 | XMS | Encounter Summary ---
Demographics + + + | Address | [address] | | | [place] [address] | + + + | Home Phone | | + + + | Preferred Language | Unknown | + + + | Marital Status | | + + + | Restoration Affiliation | 1001 | + + + [...] [place] | | | | | [address] | | + + + + + | Deanna Lawson | ECON | Unknown | | + + + + + Care Team Providers + +------+ + | Care Shift Supervisor Film Processing Name | Role | Phone | + +------+ + | Barbara Gilman MD | PCP | | + +------+ + Encounter Details +--------+ + + + + | Date | Type | Department | Care Team | Description | +--------+ + + + + | 01/30/ | Orders Only | 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, | | | | | | [place] [address] | | | | | | [phone] | | | | | | | | +--------+---------+ + + + | 04/21/ | Office | Nephrology | Isiah Jade MD | | | 2019 | Visit | | [address] | | | | | | [facility] | | | | | | [address] | | | | | | | | +--------+---------+ + + + | 05/07/ | Office | Cardiology | DarekCharlee | | | 2019 | Visit | | [address] | | | | | | [address] | | | | | | [place] [address] | | | | | | [phone] | | | | | | | [...] | | | | | ml/min ([facility]) ATN | | | | | | (acute tubular | | | | | | necrosis) ([facility]) | | + +------+--------+ + [...] | | | | | ml/min ([facility]) ATN | | | | | | (acute tubular | | | | | | necrosis) ([facility]) | | + +------+--------+ + [...]
--- OUTSIDE RECORDS SUMMARY | ~2020-03-05 | XMS | Encounter Summary ---
Demographics + + + | Address | [address] | | | [place] [address] | + + + | Home Phone | | + + + | Preferred Language | Unknown | + + + | Marital Status | | + + + | Latter-Day Affiliation | 1001 | + + + | Race | Unknown | + + + | Ethnic Group | Unknown | + + + Author + + + | Author | [facility] | | | and [place] | + + + | Organization | [facility] | | [...] [place] | | | | | [address] | | + + + + + | Deanna Lawson | ECON | Unknown | | + + + + + Care Team Providers + +------+ + | Care Youtuber Name | Role | Phone | + +------+ + | Barbara Gilman MD | PCP | | + +------+ + Encounter Details +--------+ + + + + | Date | Type | Department | Care Team | Description | +--------+ + + + + | 01/25/ | Orders Only | [facility] | Enoch Thompson, | | | 2019 | | CARDIOLOGY [place] | [address] | | | | | [address] | [place] [facility], | | | | | [place], [place] | [place] [address] | | | | | [address] | [phone] | | | | | [phone] | | | +--------+ + + + [...] | | | | | [address] [place], | | | | | | [place] [address] | | | | | | [phone] | | | | | | | | +--------+---------+ + + + | 04/21/ | Office | Nephrology | Isiah Jade MD | | | 2019 | Visit | | [address] [facility] | | | | | | [address] [place] | | | | | | [address] | | | | | | | | +--------+---------+ + + + | 05/07/ | Office | Cardiology | Charlee Oswald | | | 2019 | Visit | | [address] | | | | | | [address] | | | | | | [place] [address] | | | | | | [phone] | | | | | | | [...]
--- OUTSIDE RECORDS SUMMARY | ~2020-03-05 | XMS | Encounter Summary ---
Demographics + + + | Address | [address] | | | [place] [address] | + + + | Home Phone | | + + + | Preferred Language | Unknown | + + + | Marital Status | | + + + | Taoism Affiliation | 1001 | + + + | Race | Unknown | + + + | Ethnic Group | Unknown | + + + Author + + + | Author | [facility] | | | and [place] | + [...] [place] | | | | | [address] | | + + + + + | Deanna Lawson | ECON | Unknown | | + + + + + Care Team Providers + +------+ + | Care Personnel Technician Name | Role | Phone | [...] + + | 02/26/ | Telephone | [facility] | Hakeem Perry, | Procedure | | 2019 | | GASTROENTEROLOGY | Commercial Door Installer | | | | | [address] | | | | | | [place], [place] | | | | | | [address] | | | | | | [phone] | | | +--------+ + + + [...] | | | | | | [facility], | | | | | | [place] [address] | | | | | | [phone] | | | | | | | | +--------+---------+ + + + | 04/21/ | Office | Nephrology | Isiah Jade MD | | | 2019 | Visit | | [address] [place] | | | | | | [address] [place] | | | | | | [address] | | | | | | | | +--------+---------+ + + + | 05/07/ | Office | Cardiology | Charlee Oswald | | | 2019 | Visit | | [address] | | | | | | [address] | | | | | | [place] [address] | | | | | | [phone] | | | | | | | | +--------+---------+ + + + documented as of this encounter Visit Diagnoses Not on filedocumented in this encounter
--- OUTSIDE RECORDS SUMMARY | ~2020-03-05 | XMS | Encounter Summary ---
Demographics + + + | Address | [address] | | | [place] [address] | + + + | Home Phone [...] [place] | | | | | [address] | | + + + + + | Deanna Lawson | ECON | Unknown | | + + + + + Care Team Providers + +------+ + | Care Barge Loader Name | Role | Phone | + [...] [address] | | | | | [place], [place] | [place] [address] | | | | | [address] | [phone] | | | | | [phone] | | | +--------+ + + + [...] | | | | | [place], | | | | | | [place] [address] | | | | | | [phone] | | | | | | | | +--------+---------+ + + + | 04/21/ | Office | Nephrology | Isiah Jade MD | | 2019 | Visit | | [address] [facility] | | | | | | [address] [place] | | | | | | [address] | | | | | | | | +--------+---------+ + + + | 05/07/ | Office | Cardiology | Charlee Oswald | | | 2019 | Visit | | [address] | | | | | | [address] | | | | | | [place] [address] | | | | | | [phone] | | | | | | | [...] TR Vmax: 3.45 m/s | | | Bread Wrapper: DAR Authenticated by: Vikki Godoy Report | | | Date/Time: -- [id number]:23:50 | | + + + + ------+ [...] cmLVPWd: 0.86 cmLVOT Area: | | 3.66 [id number] Diam: 2.15 cm%FS: 30.74 %EF(Teich): 57.74 %ESV(Teich): [...] mlLAESV Index (A-L): 55.88 ml/m2LAAs A2C: 25.46 [id number] A-L | | A2C: 88.15 mlLALs A2C: 6.24 cmLAAs A4C: 29.53 rq2YFXEY A-L A4C: 110.72 mlLALs | | A4C: 6.68 cmRAAs: 31.00 nm7ZZYON A-L: 119.55 mlRAESV MOD: 117.88 mlRALs: 6.82 | | cmTAPSE: 1.87 cmAV maxP.43 mmHgAV meanP.22 mmHgAV Vmax: 1.05 m/Armen | | Vmean: 0.69 m/Armen VTI: 18.19 cmAVA Vmax: 2.31 cm2AVA (VTI): 2.75 an7PSKO Vmax: | | 0.00 cm2/m2AVAI (VTI): 0.00 cm2/m2LVOT maxP.76 mmHgLVOT meanP.05 mmHgLVSI | | Dopp: 27.38 ml/m2LVSV Dopp: 50.12 mlLVOT Vmax: 0.66 m/sLVOT Vmean: 0.48 m/sLVOT | | VTI: 13.68 cmMV A Good: 0.02 m/sMV DecT: 135.32 msMV E Good: 0.84 m/sMV E/A | | Ratio: 38.78MV PHT: 39.24 msMVA By PHT: 5.60 tf3Dleqsy e': 0.03 m/sSeptal E/e': | | 21.63Lateral e': 0.08 m/sLateral E/e': 10.19RAP: 15 mmHgRVSP: 62.86 mmHgTR | | maxP.86 mmHgTR Vmax: 3.45 m/s Bread Wrapper: DHAuthenticated by: Jayne | | [facility] Center[facility]az Date/Time: -- [id number]:23:50 IMPRESSION: 1. The left ventricle is | [...] |TR Vmax: 3.45 m/s | | | |Bread Wrapper: | |Authenticated by: Vikki Godoy | |Report Date/Time: -- [id number]:23:50 | | | |IMPRESSION: | |1. The [...]
--- OUTSIDE RECORDS SUMMARY | ~2020-03-05 | XMS | Encounter Summary ---
Demographics + + + | Address | [address] | | | [place] [address] | + + + | Home Phone | | + + + | Preferred Language | Unknown | + + + | Marital Status | | + + + | Mormon Affiliation | 1001 | + + + | Race | Unknown | + + + | Ethnic Group | Unknown | + + + Author + + + | Author | [facility] | | | and [place] | + + + | Organization | [facility] | | | [...] [place] | | | | | [address] | | + + + + + | Deanna Lawson | ECON | Unknown | | + + + + + Care Team Providers + +------+ + | Care Lock And Dam Operator Name | Role | Phone | + +------+ + | Barbara Gilman MD | PCP | | + +------+ + Encounter Details +--------+ + + + + | Date | Type | Department | Care Team | Description | +--------+ + + + + | 06/25/ | Orders Only | [facility] | Charlee Oswald | | | 2018 | | CARDIOLOGY ALYX | [address] | | | | | [address] | [address] | | | | | [address] | [place] [address] | | | | | [place] | [phone] | | | | | [address] | | | | | | [phone] | | | +--------+ + + + [...] | | | | | [address] [place] | | | | | | [place] [address] | | | | | | [phone] | | | | | | | | +--------+---------+ + + + | 04/21/ | Office | Nephrology | Isiah Jade MD | | | 2019 | Visit | | [address] [facility] | | | | | | [address] | | | | | | [address] | | | | | | | | +--------+---------+ + + + | 05/07/ | Office | Cardiology | Charlee Oswald | | | 2019 | Visit | | [address] | | | | | | [address] | | | | | | [place] [address] | | | | | | [phone] | | | | | | | [...]
--- OUTSIDE RECORDS SUMMARY | ~2020-03-05 | XMS | Encounter Summary ---
Demographics + + + | Address | [address] | | | [place] [address] | + + + | Home Phone | | + + + | Preferred Language | Unknown | + + + | Marital Status | | + + + | Judaism Affiliation | 1001 | + + + | Race | Unknown | + + + | Ethnic Group | Unknown | + + + Author + + + | Author | [facility] | | | and [place] | + + + | Organization | [facility] | | | [...] [place] | | | | | [address] | | + + + + + | Deanna Lawson | ECON | Unknown | | + + + + + Care Team Providers + +------+ + | Care Reel Cutter Name | Role | Phone [...] + + | 12/21/ | Anesthesia | [facility] | Ja Hill, | | | 2019 | Event | [facility] | GUEST HISTORY CLERK [address] | | | | | [address]PER[address] | [place] [address] | | | | | [address] | [phone] | | | | | [place] | | | | | | [address] | | | | | | [phone] | | | +--------+ + + + [...] +----+---+ + + | | 0 | Marion | | | | 9 | 43-degrees [...] Savana Bowden RN | | IV | [id number] catheter system; | | | | | [...] EVALUATION Andres Guzmán 89 y.o. male 1930 [id number] Procedure(s) NAILING IM BETSY FEMUR - GAMMA [...] by Ja Hill CRNA 12/22/2019 10:41 [facility] [...] EVALUATION Andres Guzmán 89 y.o. male 1930 [id number] Procedure(s): NAILING IM BETSY FEMUR - GAMMA [...] Blood transfusion concerns: None. Discussed plan with GUEST HISTORY CLERK. documented in this e ncounter Miscellaneous Notes Anesthesia Post-op Handoff - Ja Hill CRNA - 12/22/2019 10:38 AM PDTFormatting of th is note might be different from the original. ANESTHESIA HANDOFF NOTE Andres Guzmán 89 y.o. male 1930 [id number] NAILING IM BETSY FEMUR - GAMMA NAIL [...] team. Ja Hill CRNA 12/22/2019 10:38 AM [facility] Ja [facility] CRNA at 0 [...] | | | | | | [place] [address] | | | | | | [phone] | | | | | | | | +--------+---------+ + + + | 04/21/ | Office | Nephrology | Isiah Jade MD | | | 2019 | Visit | | [address] | | | | | | [address] [place] | | | | | | [address] | | | | | | | | +--------+---------+ + + + | 05/07/ | Office | Cardiology | Charlee Oswald | | | 2019 | Visit | | [address] | | | | | | [address] | | | | | | [place] [address] | | | | | | [phone] | | | | | | | [...]
--- OUTSIDE RECORDS SUMMARY | ~2020-03-05 | XMS | Clinical Summary ---
Demographics + + + | Address | [address] | | | [place] [address] | + + + | Home Phone [...] [place] | | | | | [address] | | + + + + + | Bekah Lawson | ECON | Unknown | | + + + + + Care Team Providers + +------+ + | Care Maintenance Scheduler Name | Role | Phone | + [...] + + + + | Overview: His SGC3OD7- VASC score is 6( HTN, age, stroke, [...] mild concentric LVH. He has a single-chamber [place] | | Scientific ventricular pacemaker that is [...] + + | Overview: He has a [place] [employer] Altrua single-chamber | | RV pacemaker [...] was seen | | today for this [employer]SMG single-chamber device. 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 ([facility]); | | | | | [...] | | | | | | ([facility]); Secondary | | | | | | hyperparathyroidism | | | | | | ([facility]); CKD (chronic | | | | | | kidney disease) | | | | | | stage 3, GFR 30-59 | | | | | | ml/min ([facility]); ATN | | | | | | (acute tubular | | | | | | necrosis) ([facility]) | +--------+ + + + + | 01/30/ | Telephone | Orthopedic Surgery | Melquiades Baez | Other | | 2020 | | | Regulo DO | | +--------+ + + + + | 01/29/ | Office | Nephrology | Isiah Jade MD | ATN (acute tubular | | 2020 | Visit | | | necrosis) ([facility]) | | | | | | (Primary Dx); CKD | | | | | | (chronic kidney | | | | | | disease) stage 3, | | | | | | GFR 30-59 ml/min | | | | | | ([facility]); Hypertension | | | | [...] | | | | | | ([facility]); 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 | | | | | | failure, stage 3 | | | | | | (moderate) ([facility]); | | | | | | Secondary | | | | | | hyperparathyroidism | | | | | | ([facility]); Bilateral leg | | | | | | edema; Electrolyte | | | | | | imbalance risk | +--------+ + + + + | 01/29/ | Documentati | Nephrology | Nelson | Results (01/22/20, | | 2019 | on | | Kita Sterling | 01/27/20) | | | | | Flag Signaler | | +--------+ + + + + | 01/26/ | Documentati | Nephrology | Nelson | Other (PCP progress | | 2019 | on | | Kita Sterling | note 01/23/20) | | | | | Flag Signaler | | +--------+ + + + + | 01/20/ | Hospital | Radiology | Melquiades Baez | Right hip pain | | 2019 | Encounter | | DO eRgulo | | +--------+ + + + + [...] | orders) | | | | | Flag Signaler | | +--------+ + + + + [...] Nephrology | Isiah Jade MD | [place] ([facility]/ | 2019 | | | | ) | +--------+ + + + + | 12/28/ | Anesthesia | | Maco Wolf, | | | 2019 | Event | | AVIATION OPERATIONS SPECIALIST | | +--------+ + + + + | 12/28/ | Surgery | | Lamont Hernandez MD | VANDA[place] | | 2019 | | | | | +--------+ + + + + | 12/21/ | Anesthesia | | Ja Hill, | | | 2020 | Event | | AVIATION OPERATIONS SPECIALIST | | +--------+ + + + + [...] + | Father | | | [place], [place] | | | | (Age | | [...] + + | Sister | | | [place] | | | | (Age | | [...] | | | | | | [facility]IE [facility] | | | | | | [place] [address] | | | | | | [phone] | | | | | | | | +--------+---------+ + + + | 04/21/ | Office | Nephrology | Isiah Jade MD | | | 2019 | Visit | | [address] | | | | | | [address] [place] | | | | | | [address] | | | | | | | | +--------+---------+ + + + | 05/07/ | Office | Cardiology | Charlee Oswald | | | 2019 | Visit | | [address] | | | | | | [address] | | | | | | [place] [address] | | | | | | [phone] | | | | | | | [...] | + +--------+------+ +--------+--------+--------+ | Implant Id: [id number] - | Cardia | | | | | [id number] | | Pacer-02/04/2019Implanted: | c | | | | | /[id number] | | Qty: 1 on 02/04/2019 by [...] | | 07/20/ | 3060-0 | | [id number] - SnaImplanted: | | | MEDICAL - | | 2023 | 100S | | Qty: 1 on 12/22/2019 by | | | STRY | | | /NA | | Melquiades Baez DO at [facility] | | | | | | /[id number] | | [facility] | | | | | | 6D [...] | /NA | | DO Regulo at [facility] | | | | | | /[id number] | | [facility] | | | | | | 9B [...] | /NA | | DO Regulo at [facility] | | | | | | /[id number] | | [facility] | | | | | | 99 | + +--------+------+ +--------+--------+--------+ | Trochanteric NailImplanted: | | | [place] | | 07/20/ | [id number] | | Qty: 1 on 12/22/2019 by | | | Medical | | 4 | 200S | | Melquiades Baez DO at [facility] | | | | | | /NA | | [facility] | | | | | | /[id number] | | [place] | | | | | | E8 [...] created this | | | entry using Youxinpai Recognition software and EPIC | | | macros. The entry has been reviewed and there may still exist sound | | | alike word errors. | | | | | |Electronically signed by: Melquiades Baez DO 02/18/2020 1:54 PM PDT | | | | | | | | |Melquiades Baez DO has created this entry using Youxinpai | | |Recognition software and JumpSeller macros. The entry has been reviewed and [...] 1.001 - 1.030 | | | | [place], | | | | | | Urine [...] | | | POC | performed at [facility];[address] | | LABORATORY | | | | [address];[place], [place] | | | | | | [address] | | | | + + + + + + + + | Specimen | + + | | + + + + + + + | Performing | Address | City/State/Zipcode | Phone Number | | Organization | | | | + + + + + | [facility] | [address] | [place] [address] | [phone] | + + + + + CBC [...] 0.02Comment: Testing | 0.00 - 0.10 | [facility] | | | Absolute | performed at [facility];[address] | K/uL | LABORATORY | | | | [address];[place] | | | | | | [address] | | | | + + + + + + + + | Specimen | + + | Blood | + + + + + + + | Performing | Address | City/State/Zipcode | Phone Number | | Organization | | | | + + + + + | [facility] | [address] | [place] [address] | [phone] | + + + + + Hemoglobin [...] [facility] | | | | performed at [facility];[address] | | LABORATORY | | | | [facility];[place], [place] | | | | | | [address] | | | | + + + + + + + + | Specimen | + + | Blood | + + + + + + + | Performing | Address | City/State/Zipcode | Phone Number | | Organization | | | | + + + + + | [facility] | [address] | [place] [address] | [phone] | + + + + + Surgical [...] | | technical component was performed by [facility], [address] [place] [address] | | | [place] [address] (Process Chemist: Padmini Sellers MD; CLIA# | | | [id number]). Professional interpretation was performed by[facility]reezie | | | [place], [address], | | | [place] [address] (Process Chemist: Oscar Maynard M.D.; CLIA#: | | | [id number]). Diagnostician: Padmini Sellers | | | MDPathologistElectronically [...] | |The technical component was performed by [facility], [address] [place] [address] (Process Chemist: Padmini Sellers MD; CLIA# [id number]). Professional interpretation was performed by | | |[facility], [address] [address] (Process Chemist: Oscar Maynard M.D.; CLIA#: [id number]). | | | | | |Diagnostician: Padmini [...] + + + | [facility] | [facility] | | [facility] | PROVATION | | CenterGastroenterology | | | Patient Name: Andres Guzmán | | | Procedure Date: 12/29/2019 8:36 AMMRN: [id number] | | | of : 1930 | [...] the anesthesiologist and the | | | detail technician in the pre-procedure area in the [...] + + | Performing | Address | City/State/[facility] | Phone Number | | Organization | [...] | | | | | performed at [facility] | | | | | | [facility];[place], [place] | | | | | | [address] | | | | + + + + + + + + | Specimen | + + | Blood | + + + + + + + | Performing | Address | City/State/Zipcode | Phone Number | | Organization | | | | + + + + + | [facility] | [address] | [place] [address] | [phone] | + + + + + Fecal Hemoglobin (12/28/2019 7:20 PM PDT) + + + + + + | Component | Value | Ref Range | Performed | Pathologist | | | | | At | Signature | + + + + + + | FECAL | POSITIVE (A)Comment: | NEG | [facility] | | | OCCULT BLD | Testing performed at | | LABORATORY | | | | [facility];[address];[place] [address] | | | | + + + + + + + + | Specimen | + + | Stool - Stool | | specimen (specimen) | + + + + + + + | Performing | Address | City/State/Zipcode | Phone Number | | Organization | | | | + + + + + | [facility] | [address] | [place] [address] | [phone] | + + + + + Red [...] BANK | Testing performed at | | [facility] | | | COMMENT | [facility];[address] | | LABORATORY | | | | [address];[place] [address] | | | | + + + + + + + + | Specimen | + + | | + + + + + + + | Performing | Address | City/State/Zipcode | Phone Number | | Organization | | | | + + + + + | [facility] | [address] | [place] [address] | [phone] | + + + + + Type [...] + + + | BB BAND | [id number] | | [facility] | | | | | | LABORATORY | | + + + + + + | UNIT # | [id number] | | [facility] | | | | [...] + + + | UNIT # | [id number] | | [facility] | | | | [...] | | | RESULT | performed at [facility];[address] | | LABORATORY | | | | [address];[place], [place] | | | | | | [address] | | | | + + + + + + + + | Specimen | + + | Blood | + + + + + + + | Performing | Address | City/State/Zipcode | Phone Number | | Organization | | | | + + + + + | [facility] | [address] | [place] [address] | [phone] | + + + + + Procalcitonin [...] | | | | | | at [facility];[address] [place] [address] | | | | | | [facility];[place] [address] | | | | + + + + + + + + | Specimen | + + | Blood | + + + + + + + | Performing | Address | City/State/Zipcode | Phone Number | | Organization | | | | + + + + + | [facility] | [address] | [place] [address] | [phone] | + + + + + Vitamin [...] | | | | defined by the [place] | | | | | | ofMedicine [...] IOM | | | | | | ([place] of [employer]). | | | | | [...] | | | | | performed at [facility], | | | | | | [address], | | | | | | [facility] [address] | | | | + + + + + + + + | Specimen | + + | Blood | + + + + + + + | Performing | Address | City/State/Zipcode | Phone Number | | Organization | | | | + + + + + | [facility] | [address] | [place] [address] | [phone] | + + + + + Potassium (12/27/2019 12:08 AM PDT) + + + + + + | Component | Value | Ref Range | Performed | Pathologist | | | | | At | Signature | + + + + + + | K | 4.0Comment: Testing | 3.5 - 4.9 | [facility] | | | | performed at [facility];[address] | mmol/L | LABORATORY | | | | [address];[place] | | | | | | [address] | | | | + + + + + + + + | Specimen | + + | Blood | + + + + + + + | Performing | Address | City/State/Zipcode | Phone Number | | Organization | | | | + + + + + | [facility] | [address] | [place] [address] | [phone] | + + + + + Complement [...] | | | COMPLEMENT | performed at [facility], | | LABORATORY | | | | [address], | | | | | | [place] [address] | | | | + + + + + + + + | Specimen | + + | | + + + + + + + | Performing | Address | City/State/Zipcode | Phone Number | | Organization | | | | + + + + + | [facility] | [address] | [place] [address] | [phone] | + + + + + Complement C4 Ag (12/26/2019 12:33 PM PDT) + + + + + + | Component | Value | Ref Range | Performed | Pathologist | | | | | At | Signature | + + + + + + | C4 | 15Comment: Testing | 14 - 44 mg/dL | [facility] | | | COMPLEMENT | performed at [facility], | | LABORATORY | | | | [address], | | | | | | [facility] [address] | | | | + + + + + + + + | Specimen | + + | | + + + + + + + | Performing | Address | City/State/Zipcode | Phone Number | | Organization | | | | + + + + + | [facility] | [address] | [place] [address] | [phone] | + + + + + Parathyroid Hormone, Intraoperative (12/26/2019 4:25 AM PDT) + + + + + + | Component | Value | Ref Range | Performed | Pathologist | | | | | At | Signature | + + + + + + | PTH Intact | 167.0 (H)Comment: | 8.7 - 79.6 | [facility] | | | | Testing performed at | pg/mL | LABORATORY | | | | [facility];[address];[place] [address] | | | | + + + + + + + + | Specimen | + + | | + + + + + + + | Performing | Address | City/State/Zipcode | Phone Number | | Organization | | | | + + + + + | [facility] | [address] | [place] [address] | [phone] | + + + + + ECHO [...] Testing | 55 - 400 U/L | [facility] | | | | performed at [facility];[address] | | LABORATORY | | | | [address];[place] | | | | | | [address] | | | | + + + + + + + + | Specimen | + + | Blood | + + + + + + + | Performing | Address | City/State/Zipcode | Phone Number | | Organization | | | | + + + + + | [facility] | [address] | [place] [address] | [phone] | + + + + + Immunoglobulin, Free Light Chain (12/25/2019 4:22 AM PDT) + + + + + + | Component | Value | Ref Range | Performed | Pathologist | | | | | At | Signature | + + + + + + | [place] Free | 121.2 (H) | 3.3 - [...] + + + + + + | [place] | 1.25Comment: Testing | 0.26 - 1.65 | [facility] | | | a Free | performed at [facility] | | LABORATORY | | | Light Chain | [place], [address] | | | | | Ratio | [place] [address] | | | | + + + + + + + + | Specimen | + + | Blood | + + + + + + + | Performing | Address | City/State/Zipcode | Phone Number | | Organization | | | | + + + + + | [facility] | [address] | [place] [address] | [phone] | + + + + + Sedimentation Rate (12/25/2019 4:22 AM PDT) + + + + + + | Component | Value | Ref Range | Performed | Pathologist | | | | | At | Signature | + + + + + + | ESR | 6Comment: Testing | 0 - 20 mm/Hr | [facility] | | | | performed at [facility], [address] | | LABORATORY | | | | [address], | | | | | | [place] [address] | | | | + + + + + + + + | Specimen | + + | Blood | + + + + + + + | Performing | Address | City/State/Zipcode | Phone Number | | Organization | | | | + + + + + | [facility] | [address] | [place] [address] | [phone] | + + + + + Glomerular Basement Membrane Ab, IgG (12/25/2019 4:22 AM PDT) + + + + + + | Component | Value | Ref Range | Performed | Pathologist | | | | | At | Signature | + + + + + + | Antiglomeru | 2Comment: | 0 - 20 units | [facility] | | | lar BM Ab, | [...] [place] | | | | | | [address] | | | | + + + + + + + + | Specimen | + + | Blood | + + + + + + + | Performing | Address | City/State/Zipcode | Phone Number | | Organization | | | | + + + + + | [facility] | [address] | [place] [address] | [phone] | + + + + + Hepatitis [...] Amplificationtest | | | | | | ([id number]).Testing | | | | | | performed at [facility], | | | | | | [address], | | | | | | [facility] [address] | | | | + + + + + + + + | Specimen | + + | Blood | + + + + + + + | Performing | Address | City/State/Zipcode | Phone Number | | Organization | | | | + + + + + | [facility] | [address] | [place] [address] | [phone] | + + + + + Cytoplasmic [...] | | | | | performed by [facility], | | | | | | [address], | | | | | | [facility] [address] | | | | + + + + + + + + | Specimen | + + | Blood | + + + + + + + | Performing | Address | City/State/Zipcode | Phone Number | | Organization | | | | + + + + + | [facility] | [address] | [place] [address] | [phone] | + + + + + Lactate Dehydrogenase (12/25/2019 4:22 AM PDT) + + + + + + | Component | Value | Ref Range | Performed | Pathologist | | | | | At | Signature | + + + + + + | LDH TOTAL | 154Comment: Testing | 120 - 246 U/L | [facility] | | | | performed at [facility];[address] | | LABORATORY | | | | [address];[place], [place] | | | | | | [address] | | | | + + + + + + + + | Specimen | + + | Blood | + + + + + + + | Performing | Address | City/State/Zipcode | Phone Number | | Organization | | | | + + + + + | [facility] | [address] | [place] [address] | [phone] | + + + + + Protein/Creatinine Ratio, Urine (12/25/2019 12:01 AM PDT) + + + + + + | Component | Value | Ref Range | Performed | Pathologist | | | | | At | Signature | + + + + + + | PRO/CREA | 0.942Comment: Testing | | [facility] | | | RATIO,URINE | performed at [facility], [address] | | LABORATORY | | | | [address], | | | | | | [place] [address] | | | | + + + + + + + + | Specimen | + + | Urine | + + + + + + + | Performing | Address | City/State/Zipcode | Phone Number | | Organization | | | | + + + + + | [facility] | [address] | [place] [address] | [phone] | + + + + + Protein, Urine, Random (12/25/2019 12:01 AM PDT) + + + + + + | Component | Value | Ref Range | Performed | Pathologist | | | | | At | Signature | + + + + + + | Protein, | 131Comment: NO NORMAL | mg/dL | [facility] | | | Urine | RANGE ESTABLISHEDTesting | | LABORATORY | | | | performed at [facility], [address] | | | | | [address], | | | | | | [place] [address] | | | | + + + + + + + + | Specimen | + + | | + + + + + + + | Performing | Address | City/State/Zipcode | Phone Number | | Organization | | | | + + + + + | [facility] | [address] | [place] [address] | [phone] | + + + + + Creatinine, [...] | 139.0Comment: NO NORMAL | mg/dL | [facility] | | | random | RANGE ESTABLISHEDTesting | | LABORATORY | | | urine | performed at [facility], [address] | | | | | [address], | | | | | | [place] [address] | | | | + + + + + + + + | Specimen | + + | | + + + + + + + | Performing | Address | City/State/Zipcode | Phone Number | | Organization | | | | + + + + + | [facility] | [address] | [place] [address] | [phone] | + + + + + XR [...] + + | Performing | Address | City/State/[facility] | Phone Number | | Organization | [...] | | | Arterial, | performed at [facility];[address] | | LABORATORY | | | POC | [address];[place], [place] | | | | | | [address] | | | | + + + + + + + + | Specimen | + + | | + + + + + + + | Performing | Address | City/State/Zipcode | Phone Number | | Organization | | | | + + + + + | [facility] | [address] | [place] [address] | [phone] | + + + + + Coronavirus (COVID-19) NAAT (12/24/2019 1:10 PM PDT) + + + + + + | Component | Value | Ref Range | Performed | Pathologist | | | | | At | Signature | + + + + + + | SARS-CoV-2, | NEGATIVEComment: Testing | NEG | [facility] | | | NAAT | performed at [facility];[address] | | LABORATORY | | | (COVID-19) | [address];[place], [place] | | | | | | [address] | | | | + + + + + + + + | Specimen | + + | Tissue - Entire | | nasopharynx (body | | structure) | + + + + + + + | Performing | Address | City/State/Zipcode | Phone Number | | Organization | | | | + + + + + | [facility] | [address] | [place] [address] | [phone] | + + + + + Culture, [...] | | LABORATORY | | | | Blvd;[place] [address] | | | | + + + + + + | RESULT | NO GROWTH 6 DAYS | | [facility] | | | | | | LABORATORY | | + + + + + + | RESULT | Testing performed at | | [facility] | | | | [place], [address] | | LABORATORY | | | | [address], [place], [place] | | | | | | [address]Gidrgbc: Testing | | | | | | performed at [facility], [address] | | | | | | [address], [place], [place] | | | | | | [address] | | | | + + + + + + + + | Specimen | + + | Blood - Peripheral | | blood specimen | | (specimen) | + + + + + + + | Performing | Address | City/State/Zipcode | Phone Number | | Organization | | | | + + + + + | [facility] | [address] [facility] | [place] [address] | [phone] | + + + + + Urinalysis [...] - 1.030 | [facility] | | | [place], | | | LABORATORY | | | [...] | Urine | performed at [facility], [address] | | LABORATORY | | | | [address], | | | | | | [place] [address] | | | | + + + [...] | + + + + + | [facility] | [address] | [place] [address] | [phone] | + + + + + Sodium, [...] | urine | performed at [facility], [address] | | | | | | [address], | | | | | | [place] [address] | | | | + + + [...] | + + + + + | [facility] | [address] | [place] [address] | [phone] | + + + + + Lactic Acid (12/24/2019 12:27 PM PDT) + + + + + + | Component | Value | Ref Range | Performed | Pathologist | | | | | At | Signature | + + + + + + | Lactate, | 1.6Comment: Testing | 0.4 - 2.0 | [facility] | | | Serum | performed at [facility];[address] | mmol/L | LABORATORY | | | | [address];[place], [place] | | | | | | [address] | | | | + + + + + + + + | Specimen | + + | Blood | + + + + + + + | Performing | Address | City/State/Zipcode | Phone Number | | Organization | | | | + + + + + | [facility] | [address] | [place] [address] | [phone] | + + + + + CBC [...] LABORATORY | | | | performed at [facility];[address] | | | | [address];[place] | | | | | | [id number] | | | | + + + + + + + + | Specimen | + + | Blood | + + + + + + + | Performing | Address | City/State/Zipcode | Phone Number | | Organization | | | | + + + + + | [facility] | [address] | [place] [address] | [phone] | + + + + + Phosphorus (12/23/2019 4:04 AM PDT) + + + + + + | Component | Value | Ref Range | Performed | Pathologist | | | | | At | Signature | + + + + + + | Phosphorus | 4.6Comment: Testing | 2.3 - 4.8 mg/dL | [facility] | | | | performed at [facility];[address] | LABORATORY | | | | [address];[place] | | | | | | [address] | | | | + + + + + + + + | Specimen | + + | Blood | + + + + + + + | Performing | Address | City/State/Zipcode | Phone Number | | Organization | | | | + + + + + | [facility] | [address] | [place] [address] | [phone] | + + + + + Hemoglobin (12/22/2019 9:37 PM PDT) + + + + + + | Component | Value | Ref Range | Performed | Pathologist | | | | | At | Signature | + + + + + + | Hemoglobin | 9.1 (L)Comment: Testing | 13.2 - 17.0 | [facility] | | | | performed at [facility];[address] | g/dL | LABORATORY | | | | [address];[place], [place] | | | | | | [address] | | | | + + + + + + + + | Specimen | + + | Blood | + + + + + + + | Performing | Address | City/State/Zipcode | Phone Number | | Organization | | | | + + + + + | [facility] | [address] | [place] [address] | [phone] | + + + + + Hematocrit (12/22/2019 9:37 PM PDT) + + + + + + | Component | Value | Ref Range | Performed | Pathologist | | | | | At | Signature | + + + + + + | Hematocrit | 27.4 (L)Comment: Testing | 39.0 - 50.0 % | [facility] | | | | performed at [facility];[address] | LABORATORY | | | | [address];[place], [place] | | | | | | [address] | | | | + + + + + + + + | Specimen | + + | Blood | + + + + + + + | Performing | Address | City/State/Zipcode | Phone Number | | Organization | | | | + + + + + | [facility] | [address] | [place] [address] | [phone] | + + + + + Red [...] | | | POC | performed at [facility];[address] | g/dL | LABORATORY | | | | [address];[place] | | | | | | [address] | | | | + + + + + + + + | Specimen | + + | | + + + + + + + | Performing | Address | City/State/Zipcode | Phone Number | | Organization | | | | + + + + + | [facility] | [address] | [place] [address] | [phone] | + + + + + Airway [...] | | | POC | performed at [facility];[address] | g/dL | LABORATORY | | | | [address];[place], [place] | | | | | | [address] | | | | + + + + + + + + | Specimen | + + | | + + + + + + + | Performing | Address | City/State/Zipcode | Phone Number | | Organization | | | | + + + + + | [facility] | [address] | [place] [address] | [phone] | + + + + + from [...] +--------+ +---------+--------+ | MEDICARE | MEDICA | [id number] | 04/21/19 | [phone] | | Medica | | | RE | | 97-Pre | 5 | | re | | | PART A | | sent | | | | | | AND B | | | | | | + +--------+ +--------+ +---------+--------+ | INDIVIDUAL ASSURANCE | INDIVI | [id number] | | | | Indemn | | [...] | Self | [birth year] | | [address] | | Robert | al/Fam | | 1930 | [phone] | [place] | | | quique | | | 1 (Home) | [address] | + +--------+ +--------+ + + Advance Directives + + + + + | Type | Date Recorded | Patient | Explanation | | | | Imagery Analyst | | + + + + + | Power of | 02/18/2020 1:07 | | BEKAH MCDONNELL | | Environmental Field Professional | PM | | | + + [...]
--- OUTSIDE RECORDS SUMMARY | ~2020-03-05 | XMS | Encounter Summary ---
Demographics + + + | Address | [address] | | | [place] [address] | + + + | Home Phone [...] [place] | | | | | [address] | | + + + + + | Deanna Lawson | ECON | Unknown | | + + + + + Care Team Providers + +------+ + | Care Transit Mechanic Name | Role | Phone | + [...] + + | 11/10/ | Procedure | [facility] | | Cardiac pacemaker in | | 2019 | visit | CARDIOLOGY [place] | | situ (Primary Dx) | | | | [address] | | | | | | [place] | | | | | | [address] | | | | | | [phone] | | | +--------+ + + + [...] of this encounter Procedure Notes Mercedez Bains, Petroleum Refining Firer - 11/11/2019 8:00 AM PDTAssociated Order(s): DEVICE INT ERROGATION- REMOTEProcedure(s): DEVICE INTERROGATION- REMOTEPre-Procedure Diagnose(s): Prese nce of cardiac pacemaker PACEMAKER REMOTE INTERROGATION REPORT Name: Andres Guzmán PCP: Barbara Gilman MD : 1930 Primary cardiology provider: Charlee Oswald Primary electrophysiology provider: Enoch Thompson Device plate maker zinc: PriceTag Device type: Single chamber (Ventricular) Battery Longevity: [...] | | | | | [address] [place], | | | | | | [place] [address] | | | | | | [phone] | | | | | | | | +--------+---------+ + + + | 04/21/ | Office | Nephrology | Isiah Jade MD | | | 2019 | Visit | | [address] | | | | | | [address] [place] | | | | | | [address] | | | | | | | | +--------+---------+ + + + | 05/07/ | Office | Cardiology | Charlee Oswald | | | 2019 | Visit | | [address] | | | | | | [address] | | | | | | [place] [address] | | | | | | [phone] | | | | | | | [...] Mercedez Jensen | [facility] | | Herson, Petroleum Refining Firer 11/12/2019 4:50 PMPACEMOKER REMOTE | | | INTERROGATION REPORT Name: Andres Guzmán PCP: Barbara Elkins | | | MD Mukul : 1930MRN: [id number] Primary cardiology | | | provider: Charlee Oswald Primary electrophysiology provider: Enoch | | | Jay Device plate maker zinc: PriceTag Device type: Single | | | chamber [...]
--- OUTSIDE RECORDS SUMMARY | ~2020-03-05 | XMS | Encounter Summary ---
Demographics + + + | Address | [address] | | | [place] [address] | + + + | Home Phone [...] [place] | | | | | [address] | | + + + + + | Deanna Lawson | ECON | Unknown | | + + + + + Care Team Providers + +------+ + | Care Ambulatory Care Nurse Name | Role | Phone | [...] + + | 12/01/ | Telephone | [facility] | Charlee Oswald | Testing | | 2020 | | CARDIOLOGY [facility] | [address] | | | | | [address] | [address] | | | | | [address] | [place] [address] | | | | | [place] | [phone] | | | | | [address] | | | | | | [phone] | | | +--------+ + + + [...] | | [facility], | | | | | | [place] [address] | | | | | | [phone] | | | | | | | | +--------+---------+ + + + | 04/21/ | Office | Nephrology | Isiah Jade MD | | | 2019 | Visit | | [address] | | | | | | [address] [place] | | | | | | [address] | | | | | | | | +--------+---------+ + + + | 05/07/ | Office | Cardiology | Charlee Oswald | | | 2019 | Visit | | [address] | | | | | | [address] | | | | | | [place] [address] | | | | | | [phone] | | | | | | | [...]
--- OUTSIDE RECORDS SUMMARY | ~2020-03-05 | XMS | Encounter Summary ---
Demographics + + + | Address | [address] | | | [place] [address] | + + + | Home Phone [...] [place] | | | | | [address] | | + + + + + | Deanna Lawson | ECON | Unknown | | + + + + + Care Team Providers + +------+ + | Care Telecommunications Specialist Name | Role | Phone | [...] [address] | | | | | [place], [place] | [place] [address] | | | | | [address] | [phone] | | | | | [phone] | | | +--------+ + + + [...] | | | | | [address] [place], | | | | | | [place] [address] | | | | | | [phone] | | | | | | | | +--------+---------+ + + + | 04/21/ | Office | Nephrology | Isiah Jade MD | | 2019 | Visit | | [address] [facility] | | | | | | [address] [place] | | | | | | [address] | | | | | | | | +--------+---------+ + + + | 05/07/ | Office | Cardiology | Charlee Oswald | | | 2019 | Visit | | [address] | | | | | | [address] | | | | | | [place] [address] | | | | | | [phone] | | | | | | | [...] TR Vmax: 3.45 m/s | | | Sewing Machine Repairer Helper: DAR Authenticated by: Vikki Godoy Report | | | Date/Time: -- [id number] | | + + + + ------+ [...] cmLVPWd: 0.86 cmLVOT Area: | | 3.66 [id number] Diam: 2.15 cm%FS: 30.74 %EF(Teich): 57.74 %ESV(Teich): [...] mlLAESV Index (A-L): 55.88 ml/m2LAAs A2C: 25.46 [id number] A-L | | A2C: 88.15 mlLALs A2C: 6.24 cmLAAs A4C: 29.53 [id number] A-L A4C: 110.72 mlLALs | | A4C: 6.68 cmRAAs: 31.00 px3TSUMP A-L: 119.55 mlRAESV MOD: 117.88 mlRALs: 6.82 | | cmTAPSE: 1.87 cmAV maxP.43 mmHgAV meanP.22 mmHgAV Vmax: 1.05 m/Armen | | Vmean: 0.69 m/Armen VTI: 18.19 cmAVA Vmax: 2.31 cm2AVA (VTI): 2.75 [id number] Vmax: | | 0.00 cm2/m2AVAI (VTI): 0.00 cm2/m2LVOT maxP.76 mmHgLVOT meanP.05 mmHgLVSI | | Dopp: 27.38 ml/m2LVSV Dopp: 50.12 mlLVOT Vmax: 0.66 m/sLVOT Vmean: 0.48 m/sLVOT | | VTI: 13.68 cmMV A Good: 0.02 m/sMV DecT: 135.32 msMV E Good: 0.84 m/sMV E/A | | Ratio: 38.78MV PHT: 39.24 msMVA By PHT: 5.60 at8Jibbqt e': 0.03 m/sSeptal E/e': | | 21.63Lateral e': 0.08 m/sLateral E/e': 10.19RAP: 15 mmHgRVSP: 62.86 mmHgTR | | maxP.86 mmHgTR Vmax: 3.45 m/s Sewing Machine Repairer Helper: DHAuthenticated by: Jayne | | [facility] Date/Time: -- [id number]:50 IMPRESSION: 1. The left ventricle is | [...] |TR Vmax: 3.45 m/s | | | |Sewing Machine Repairer Helper: | |Authenticated by: Vikki Godoy | |Report Date/Time: -- [id number]:50 | | | |IMPRESSION: | |1. The [...]
--- OUTSIDE RECORDS SUMMARY | ~2020-03-05 | XMS | Encounter Summary ---
Demographics + + + | Address | [address] | | | [place] [address] | + + + | Home Phone | | + + + | Preferred Language | Unknown | + + + | Marital Status | | + + + | Rastafarian Affiliation | [id number] | + + + | Race | Unknown | + + + | Ethnic Group | Unknown | + + + Author + + + | Author | [facility] | | | and [place] | + + + | Organization | [facility] | | [...] [place] | | | | | [address] | | + + + + + | Deanna Lawson | ECON | Unknown | | + + + + + Care Team Providers + +------+ + | Care Manager Package Name | Role | Phone | + [...] + + | 12/20/ | Hospital | [facility] | Julián Messina MD | Acute GI bleeding | | 2020 - | Encounter | [facility] [address] | [address] | (Primary Dx); Closed | | | | [address] | [address] [place], [place] | comminuted | | 12/31/ | | [place], [place] | [address] | intertrochanteric | | 2020 | | [address] | | fracture of right | | | | [phone] | Regino Greene MD | femur with routine | | | | | [address] | healing; Chronic | | | | | [place] [address] | kidney disease, | | | | | 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 No immediate indication for REVENUE SETTLEMENTS ADMINISTRATOR. Patient was also seen by physical therapy and occupational therapy and was recommended for discharging to SNF. However patient will b e going to [facility] bed at this time. Patient also [...] No CVA tenderness, no spinal tenderness Disposition: [facility] Condition: Fair No discharge procedures [...] BUNCREARATIO 30 01/01/2020 PTH 72.57 (A) 04/01/2019 [id number] 25.2 (L) 12/27/2019 CALCIUM 8.6 01/01/2020 PHOS [...] been following up with ENEDINA mena in [place]. He has unrecovered acute kidney injury and a higher baseline creatinine. At this time there is no clinical uremia, refractory volume overload, refractory acidosis, refractory hyperkalemia and no urgent indication of starting REVENUE SETTLEMENTS ADMINISTRATOR. Neither is there an indication for [...] Incentive spirometry. Transfuse Prn. No indication for REVENUE SETTLEMENTS ADMINISTRATOR for now. Await renal recovery. On [...] was completed later after rounds. Dictation software, Mobileye, was used which may contain error for [...] but not limited to potential need for REVENUE SETTLEMENTS ADMINISTRATOR . This is a patient with [...] waiting downstairs. Deanna Doe RN, CMSRN, [facility] Inpatient Wound Ostomy Care [phone] 01/01/2020 11:46 AM Chai, Savana Irving RN [...] BUNCREARATIO 25 12/31/2019 PTH 72.57 (A) 04/01/2019 [id number] 25.2 (L) 12/27/2019 CALCIUM 8.5 12/31/2019 PHOS [...] been following up with ENEDINA mena in [place]. He has unrecovered acute kidney injury and a higher baseline creatinine. At this time there is no clinical uremia, refractory volume overload, refractory acidosis, refractory hyperkalemia and no urgent indication of starting REVENUE SETTLEMENTS ADMINISTRATOR. Neither is there an indication for [...] Incentive spirometry. Transfuse Prn. No indication for REVENUE SETTLEMENTS ADMINISTRATOR for now. Await renal recovery. I [...] was completed later after rounds. Dictation software, Mobileye, was used which may contain error for [...] but not limited to potential need for REVENUE SETTLEMENTS ADMINISTRATOR . This is a patient with [...] injuries: see wound RN note for treatment. [facility] ed, continue wound care at swing bed, send with extra dressing supplies. *Metabolic bone disorder: elevated PTH and phosphorus. Treatment per birdcage assembler (see thei r note). Subjective No chest [...] who was admitted as a transfer from [facility] due t o a mechanical fall sustaining [...] and he was accepted by [facility] in [place], [place] for rehabilitation purposes. Hospital stay was [...] Medications Current Facilty-Administered PRN Medications Ordered in [facility] Medication Dose Route Frequency Provider Last [...] but remains week, he is accepted at [facility] in [place] with discharge plans tomorrow for rehabilit ation [...] discharge plans to [facility] in [facility] tomorrow. DVT prophylaxis with SCD's only due to risks of bleeding. Discharge plans tomorrow to [facility] in [place], [place] for rehabi litation. Called his daughter Ms. Huerta and left a message with updated information at phone number [phone]. Jerry Chino MD 12/30/2019 tHolden bui PA - 12/30/2019 12:35 PM PDTFormatting of this note might be different from the [facility] Service: Gastroenterology Consult Progress Note Hospital Day: LOS: 9 days SUBJECTIVE Patient Summary: This is an 89-year-old male with multiple medical problems and a his tory of hypertension, diabetes, CKD stage III who was transferred from [facility] t o a fall and he [...] motor deficits. PSYCHIATRIC: Appropriate, affect appears normal [facility] Gastroenterology Patient Name: Andres Guzmán Procedure Date: [...] physician, the nurse, the anesthesiologist and the pharmacy picking technician in the pre-procedure area in the [...] successful. Thermal coagulation with Gold probe 7 Belizean x 5 pulses was successful with hemostasis. [...] 12/29/2019 8:36 AM Number of Addenda: 0 [facility] DATA Lab Results Component Value Date WBC [...] ll with any questions. Florina Cantu PA-C [facility] Gastroenterology 12/30/2019 Associated attestation - Lamont Hernandez MD - 12/31/2019 2:17 PM [id number] male with GI bleeding due to duodenal ulcer with visible vessel. The ulcer and visible vessel were tr eated with injection and gold probe thermal coagulation. The patient was seen and examined by me personally. The case was discussed with the physician's assistant refinery operator and I agree with the assessment and [...] status. Disposition: Plan to discharge tomorrow, to Residential Facility, once medically stable and cleared by [...] BUNCREARATIO 23 12/30/2019 PTH 72.57 (A) 04/01/2019 [id number] 25.2 (L) 12/27/2019 CALCIUM 8.6 12/30/2019 PHOS [...] been following up with ENEDINA mena in [place]. That had improved with nonoliguric state but now seems to have leveled off at around 3 and this may be reflection of unrecovered acute kidney injury and a higher baseline creatinine. At this time there is no clinical uremia, refractory volume overload, refractory acidosis, refractory hyperkalemia and no urgent indication of starting REVENUE SETTLEMENTS ADMINISTRATOR. Neither is there an indication for [...] Incentive spirometry. Transfuse Prn. No indication for REVENUE SETTLEMENTS ADMINISTRATOR for now. Await renal recovery. I [...] was completed later after rounds. Dictation software, Mobileye, was used which may contain error for [...] but not limited to potential need for REVENUE SETTLEMENTS ADMINISTRATOR . This is a patient with [...] BUNCREARATIO 30 12/29/2019 PTH 72.57 (A) 04/01/2019 [id number] 25.2 (L) 12/27/2019 CALCIUM 8.7 12/29/2019 PHOS [...] been following up with ENEDINA mena in [place]. That seems to be improving with nonoliguric state and small reduction in creatinine. At this time there is no clinical uremia, refractory volume overload, refractory acidosis, refractory hyperkalemia and no urgent indication of starting REVENUE SETTLEMENTS ADMINISTRATOR. Neither is there an indication for [...] Incentive spirometry. Transfuse Prn. No indication for REVENUE SETTLEMENTS ADMINISTRATOR for now. Await renal recovery. I [...] was completed later after rounds. Dictation software, Mobileye, was used which may contain error for [...] but not limited to potential need for REVENUE SETTLEMENTS ADMINISTRATOR . acetaminophen 1,000 mg Oral 3 [...] who was admitted as a transfer from [facility] due t o a mechanical fall sustaining [...] finding placement and he was accepted by [facility] in [place], [place] for rehabilitation purposes. Hospita l stay [...] but needs rehabilitation, he is accepted by [facility] in [place], [place] with discharge plans early next weeks [...] another 1 to 2 to SNF in [place], [place] if remains stable and improve d. Called his daughter Ms. Huerta and updated her about plans at phone number [phone]. Jerry Chino MD 12/29/2019 acon, Norma Kilpatrick [...] BUNCREARATIO 28 12/28/2019 PTH 72.57 (A) 04/01/2019 [id number] 25.2 (L) 12/27/2019 CALCIUM 8.5 12/28/2019 PHOS [...] been following up with ENEDINA mena in [place]. That seems to be improving with nonoliguric state and small reduction in creatinine. At this time there is no clinical uremia, refractory volume overload, refractory acidosis, refractory hyperkalemia and no urgent indication of starting REVENUE SETTLEMENTS ADMINISTRATOR. Neither is there an indication for [...] Incentive spirometry. Transfuse Prn. No indication for REVENUE SETTLEMENTS ADMINISTRATOR for now. Await renal recovery. I [...] was completed later after rounds. Dictation software, Mobileye, was used which may contain error for [...] but not limited to potential need for REVENUE SETTLEMENTS ADMINISTRATOR . acetaminophen 1,000 mg Oral 3 [...] dinner dextrose 10% pantoprazole 8 mg/hr (12/28/19 1618) orter, DALILA Grant - 12/28/2019 10:49 AM PDT [facility] Service: Orthopedic Surgery Progress Note Hospital Day: [...] DALILA Peralta has created this entry using [employer] Recognition softAlwaySupport e and [employer] macros. The entry has been reviewed and [...] who was admitted as a transfer from [facility] due t o a mechanical fall sustaining [...] finding placement and he was accepted by [facility] in [place], [place] for rehabilitation purposes. Hospita l stay [...] 30 mL 30 mL Oral Q4H PRN eJrry Chino MD dextrose 50% injection 12.5-25 g [...] making slow progress, he is accepted by [facility] in [place], [place] with discharge plans possib ly early [...] 1 to 2 to a SNF in [place], [place] when renal functions are st able and cleared by Nephrology services. Also called his daughter Ms. Huerta and updated her a bout plans at phone number [phone]. Jerry Chino MD 12/28/2019 Ghazal Ferrer COTA [...] been following up with ENEDINA mena in [place]. That seems to be improving with nonoliguric state and small reduction in creatinine. At this time there is no clinical uremia, refractory volume overload, refractory acidosis, refractory hyperkalemia and no urgent indication of starting REVENUE SETTLEMENTS ADMINISTRATOR. Neither is there an indication for [...] Incentive spirometry. Transfuse Prn. No indication for REVENUE SETTLEMENTS ADMINISTRATOR for now. Await renal recovery. I [...] but not limited to potential need for REVENUE SETTLEMENTS ADMINISTRATOR . acetaminophen 1,000 mg Oral 3 [...] status. Disposition: Plan to discharge Monday, to Residential Facility, once medically stable a nd cleared [...] Net -400 ml . Treatment plan: per birdcage assembler; slowly improving. *Blood pressure: labile; See VS [...] disorder: elevated PTH and phosphorus. Treatment per birdcage assembler (see thei r note). Subjective No chest [...] who was admitted as a transfer from [facility] due t o a mechanical fall sustaining [...] mg 25 mg Oral Q8H PRN Regino Gerene MD 25 mg at 12/08 1011 ondansetron [...] trength and mobility. He is accepted by [facility] in [place], [place] and discharge is delayed due to [...] to 3 days to a SNF in [place], [place] when renal functions a re stable and cleared by Nephrology services. Jerry Chino MD 12/27/2019 Linda Montalvo RN - 12/26/2019 5:09 PM PDT [facility] Service: Wound Care Consult Note Hospital Day: [...] questions. Linda Cedeno RN 17:16 [place] [facility] - 12/26/2019 12:55 PM PDTFormatting of this [...] who was admitted as a transfer from [facility] due t o a mechanical fall sustaining [...] Medications Current Facilty-Administered PRN Medications Ordered in [facility] Medication Dose Route Frequency Provider Last [...] placement is recommended. 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 Huerta and the at phone number [phone] Code Status: Full Code Regino Greene MD [...] status. Disposition: Plan to discharge Monday, to Residential Facility, once medically stable a nd cleared [...] lab follow-up and treatment per hospitalist and birdcage assembler. *Blood pressure: hypotensive; See VS for BP trending. Treatment plan: treatment per hospit alist and birdcage assembler *Hospital acquired pneumonia - on IV Zosyn, [...] Dr. Huerta and the at phone number [phone] Code Status: Full Code Regino Greene MD [...] any conversation with family members today. Inpatient homemaking rehabilitation consultant. Code Status: Full Code Regino Greene MD 12/23/2019 10:03 PM [place] [facility] - 12/23/2019 12:27 PM PDT . ORTHOPEDIC [...] GAMMA NAIL; Surgeon: Melquiades Baez DO; Location: [facility] MAIN OR OTHER SURGICAL HISTORY CATARACT EXTRACTION [...] Electronically Signed by: Lamont Hernandez MD 12/29/[address] [facility] Portions of this chart may have been created with Mobileye voice recognition software. Occasi onal wrong-word or sound-alike substitutions may have occurred due to the inherent castañeda itations of voice recognition software. Please read the chart carefully and recognize, using context, where these substitutions have occurred Julián Urbina MD - 12/21/2019 7:38 PM PDTFormatting of this note m ight be different from the original. [facility] Service: Hospitalist History and Physical Date of Admission: Dec 21 2019 Requesting Physician: [facility] emergency Department Reason for Admission: Right comminuted intertrochanteric fracture of the hip CHIEF COMPLAINT: Mechanical fall tripped over side curb landed on the right hip area right hip pain today HISTORY OF PRESENT ILLNESS The patient is a 89 y.o. male Transfer from [facility] after fall with right hip fracture with multiple comor bidities being on Eliquis as well requested for higher level of care to transfer to [facility] wit h orthopedic 89 years old gentleman fall at this morning mechanical fall tripped on the curb and result ed in right hip pain [facility] visited x-ray found to have a [...] and LFT Orthopedic on-call was consulted from [facility] and requested to transfer for higher level of care At [facility] with multiple comorbidities REVIEW OF SYSTEMS 12 [...] transfer lab WBC 5.9 hb10.2 hct 30.5 ics364 potassium 5.1 Bun 85 cre 2.6 Co2-24 [...] as per stated reason Chronic A. fib [id number]- VASC score is 6- Hold Eliquis for [...] Old records reviewed on EMR. Dictation software, Mobileye, used which may contain error for similar sounding words even af ter review. Personal communication requested for any clarification. Disposition: inpatient Code Status: FULL CODE Primary Care Physician: MD Julián Nobles MD 12/21/2019 documented in thi s encounter Consult Notes Lamont Hernandez MD - 12/29/2019 10:26 AM PDT Gastroenterology Consultation: [facility] 12/29/2019 Andres Godinezdemetrioprem 89 y.o. [phone] History of present illness: Gastroenterology consultation is requested for evaluation of GI bleeding with melena. This is an 89-year-old male with multiple medical problems and a history of hypertension, d iabetes, CKD stage III who was transferred from [facility] due to a fall and he sustain [...] GAMMA NAIL; Surgeon: Melquiades Baez DO; Location: [facility] MAIN OR OTHER SURGICAL HISTORY CATARACT EXTRACTION [...] file Gets together: Not on file Attends worship service: Not on file Active member of [...] this chart may have been created with Mobileye voice recognition software. Occasi onal wrong-word or sound-alike substitutions may have occurred due to the inherent castañeda itations of voice recognition software. Please read the chart carefully and recognize, using context, where these substitutions have occurred Hayley Peres MD - 12/25/2019 8:46 PM PDT Consulted by [facility] Problem List: Patient Active Problem List [...] III with baseline creatinine 1.7 admitted to [facility] on December 20 after a mechanical fall that led to right hip fracture. The patient was transferr ed from [facility] for surgery. The patient did [...] Tristan Gage at the nephrology clinic in [place]. The patien t is poor historian and does not recall seeing a birdcage assembler in the past. He also not awar [...] Order(s): IP CONSULT TO WOUND OSTOMY NURSE [facility] Service: Wound Care Consult Note Hospital Day: [...] Elizabeth MD - 12/24/2019 11:33 AM PDT [facility] Service: Physicial Medicine & Rehab Consultation note [...] diabetes, and cirrhosis He was transferred to [facility], and is now s/p ORIF with [...] GAMMA NAIL; Surgeon: Melquiades Baez DO; Location: [facility] MAIN OR OTHER SURGICAL HISTORY CATARACT EXTRACTION [...] should consist SNF placement closer to home ([place]). Code Status: Full Code Wing Marie Reed MD 12/24/2019 Melquiades Gill, - 12/22/2019 7:50 AM PDTAssociated Order(s): PROVIDER TO PROVIDER CONSULT [facility] Service: Orthopedic Surgery [...] hip f racture. He was transferred to [facility] for concerns with other comor bidities. He [...] surgery. He will be taken for a [facility] hip cephalo-medullary nail.The risks and benefits of [...] might b e different from the original. SNF FACILITY TRANSFER ORDERS Patient Name: Andres Guzmán [...] limb(s)): [x] OT Evaluation & Treat [] MANUAL PLATE FILLER Evaluation Treat Wound/Skin Care: [] Follow current recommendations of the wound team for treatment. [] Wound Vac management per nursing protocol. Labs/Imaging: [] PT/INR: Frequency per SNF provider Goal INR: [] Fingerstick glucose check before meals and bedtime and PRN [] Labs: Follow up: Melquiades Baez DO [address] [place] [address] [phone] In 2 weeks For post op care Barbara Gilman MD [address] [place] [address] [address] [place] [phone] In 1 week I have advised this [...] Regino Greene MD, certify that post hospital [facility] care is medically necessa ry on a continuing basis for any of the conditions for which he/she received care during thi s hospitalization. Additional Orders/Instructions: Physician's signature: 01/01/2020 10:[address] [facility] NURSING FACILITY USE ONLY: [] Admitting [...] HIGH Current Discharge Plan Anticipated Discharge Disposition: [facility] Expected DC Date: 12/31/2019 Barriers to Discharge: placement Steps Taken Toward Discharge: Attended morning rounds, called [facility] and provided upd ate of Pt Next Steps: d/c to [facility] Community Support Services Current Outpt/Agency/Support Groups: none Community Agency Name: none Other Resources: Discharge Transportation Transportation Needs: agency transportation Notes: Pt on course to discharge to [facility] tomorrow. Idalia discusse d with [facility] team and they are accepting Pt tomorrow if Pt is medically ready. Cm will follow for d/c needs that arise. Electronically signed: Ja Marcus RN 12/31/2019 3:54 PM lan of Care - Andrez Llamas, TIME CLOCK MECHANIC - 12/31/2019 2:04 PM PDT Physical Therapy Treatment Note Recommended discharge disposition: [facility] Post discharge physical therapy recommendation: Equipment [...] Value LTG Status continued at 12/30/2019804 LTG [place] Level supervised at 12/30/2019804 LTG Assistive Device none at 12/30/2019 08 All Transfers Goal Most Recent Value LTG Status new at 12/30/2019804 LTG [place] Level minimum assist (75% patient effort) at 12/30/2019804 LTG Assistive Device 2 wheeled walker (FWW) at 12/30/2019804 Gait Goal Most Recent Value LTG Status new at 12/30/2019804 LTG [place] Level minimum assist (75% patient effort) at [...] and uses call light appropriately lan of [facility] - Torie Hamlin RN - 12/31/2019 3:02 [...] chart r sha complete. la n of [facility] - Torie Bryant RN - 12/30/2019 10:03 PM PDT Problem: Adult Inpatient Plan of Care Goal: Plan of Care Review Outcome: Ongoing, progressing Goal: Readiness for Transition of Care Outcome: Ongoing, progressing Plan of care reviewed with patient who verbalizes agreement with no voiced concerns. Aware of plan for discharge to [facility] tomorrow and has no concerns regarding [...] Physical Therapy Treatment Note Recommended discharge disposition: [facility] Post discharge physical therapy recommendation: Equipment [...] Bed Mobility Sit to Supine, Level of [place]: moderate assist (50% patient effort) Safety Issues: decreased use of legs for bridging/pushing Impairments: strength decreased Transfers Chair-Bed, Level of [place]: moderate assist (50% patient effort) Peu-Wepyr-Aat, Assistive Device: gait belt Sit-Stand, Level of [place]: moderate assist (50% patient effort) Stand-Sit, Level of [place]: moderate assist (50% patient effort) One-Foxuu-Eqi, Assistive Device: gait belt Safety Issues: balance decreased during turns, step length decreased Impairments: strength decreased Goals Reflects last filed data and may be from multiple contributors. All Bed Mobility Goal Most Recent Value LTG Status continued at 12/30/2019 08 LTG [place] Level supervised at 12/30/2019 08 LTG Assistive Device none at 12/30/2019 08 All Transfers Goal Most Recent Value LTG Status new at 12/30/2019 08 LTG [place] Level minimum assist (75% patient effort) at 12/30/2019 0805 LTG Assistive Device 2 wheeled walker (FWW) at 12/30/2019 0805 Gait Goal Most Recent Value LTG Status new at 12/30/2019 0805 LTG [place] Level minimum assist (75% patient effort) at [...] Bed in low position, gait belt available, stock digger socks on. Problem: Skin Injury Risk Increased [...] Physical Therapy Re-Assessment Note Recommended discharge disposition: [facility] Post discharge physical therapy recommendation: ongoing low intensity therapy, will benefi t from structured setting Equipment Recommendations: (TBD) Barriers to community-based discharge Physical Impairment, Pain, and Fall risk Planned Interventions: balance training, bed mobility training, gait training, home exercis e program, manual therapy techniques, patient/family education, ROM (Range of Motion), stair training, strengthening, stretching, armenian ball techniques, wheelchair management/propulsio n training Recommended [...] Documentation: sit to/from stand Sit-Stand, Level of [place]: moderate assist (50% patient effort) Stand-Sit, Level of [place]: moderate assist (50% patient effort) Rir-Oxgcr-Ste, Assistive Device: other (see comments)(platform walker ) Maintain Weight Bearing Status: able to maintain weight bearing status Safety Issues: balance decreased during turns Impairments: pain, strength decreased, impaired balance Gait Gait Comments: ambulated with shuffled steps and decreased quita Level of [place]: moderate assist (50% patient effort) Assistive Device: [...] Value LTG Status continued at 12/30/2019804 LTG [place] Level supervised at 12/30/2019804 LTG Assistive Device none at 12/30/2019 08 All Transfers Goal Most Recent Value LTG Status new at 12/30/2019804 LTG [place] Level minimum assist (75% patient effort) at 12/30/2019804 LTG Assistive Device 2 wheeled walker (FWW) at 12/30/2019804 Gait Goal Most Recent Value LTG Status new at 12/30/2019804 LTG [place] Level minimum assist (75% patient effort) at [...] Physical Therapy Treatment Note Re[facility] Post discharge physical therapy recommendation: Equipment [...] Bed Mobility Supine to Sit, Level of [place]: moderate assist (50% patient effort) Sit to Supine, Level of [place]: moderate assist (50% patient effort) Safety Issues: decreased use of legs for bridging/pushing Impairments: strength decreased Transfers Sit-Stand, Level of [place]: moderate assist (50% patient effort) Stand-Sit, Level of [place]: moderate assist (50% patient effort) Gck-Sjstt-Uci, Assistive Device: other (see comments)(UP walker) Safety Issues: balance decreased during turns, step length decreased Impairments: strength decreased Gait Level of [place]: moderate assist (50% patient effort) Assistive Device: [...] LTG Status new at 12/23/2019 1600 LTG [place] Level supervised at 12/23/2019 1600 LTG Assistive Device none at 12/23/2019 1600 All Transfers Goal Most Recent Value LTG Status new at 12/23/2019 1600 LTG [place] Level modified independent at 12/23/2019 1600 LTG Assistive Device 2 wheeled walker (FWW) at 12/23/2019 1600 Gait Goal Most Recent Value LTG Status new at 12/23/2019 1600 LTG [place] Level stand by assist at 12/23/2019 1600 [...] Bed Mobility Supine to Sit, Level of [place]: moderate assist (50% patient effort) Safety Issues: decreased use of legs for bridging/pushing Impairments: strength decreased Transfers Sit-Stand, Level of [place]: moderate assist (50% patient effort) Stand-Sit, Level of [place]: moderate assist (50% patient effort) Kvu-Bibtt-Ymw, Assistive Device: other (see comments)(UP walker) Safety Issues: balance decreased during turns, step length decreased Impairments: strength decreased Exercises Bed exercises: ankle pumps, quad sets, heel slides, hip abduction/adduction, glut sets Goals Reflects last filed data and may be from multiple contributors. All Bed Mobility Goal Most Recent Value LTG Status new at 12/23/2019 1600 LTG [place] Level supervised at 12/23/2019 1600 LTG Assistive Device none at 12/23/2019 1600 All Transfers Goal Most Recent Value LTG Status new at 12/23/2019 1600 LTG [place] Level modified independent at 12/23/2019 1600 LTG Assistive Device 2 wheeled walker (FWW) at 12/23/2019 1600 Gait Goal Most Recent Value LTG Status new at 12/23/2019 1600 LTG [place] Level stand by assist at 12/23/2019 1600 [...] handled ghada e horn, long handled sponge, street light inspector, sock aide Barriers to community-based discharge: [...] x1, rest break inbetween set d/t fatigue. CACHIL DEHE for proper tech during ex able to continue seq uence intitially however would require cueing/assist later on in reps. Goals Reflects last filed data and may be from multiple contributors. LB Dressing Goal Most Recent Value LTG Status new at 12/24/2019 0953 LTG [place] Level moderate assist (50% patient effort), verbal cues required at 12/23 0953 LTG Adaptive Equipment street light inspector, shoe horn, long handled, sock-aid [AE as needed] at 2019 0953 Toilet Transfer Goal Most Recent Value LTG Status new at 12/24/2019 0953 LTG [place] Level minimum assist (75% patient effort), verbal [...] OTR/L. lan of Care - Andrez Dominguez, TIME CLOCK MECHANIC - 12/26/2019 1:46 PM PDTFormatting of this [...] Bed Mobility Supine to Sit, Level of [place]: moderate assist (50% patient effort) Sit to Supine, Level of [place]: moderate assist (50% patient effort) Safety Issues: decreased use of legs for bridging/pushing Impairments: strength decreased Transfers Sit-Stand, Level of [place]: moderate assist (50% patient effort) Stand-Sit, Level of [place]: moderate assist (50% patient effort) Wjz-Qdqft-Vau, Assistive Device: other (see comments)(Up walker) Safety Issues: balance decreased during turns, step length decreased Impairments: strength decreased Gait Level of [place]: moderate assist (50% patient effort) Assistive Device: [...] LTG Status new at 12/23/2019 1600 LTG [place] Level supervised at 12/23/2019 1600 LTG Assistive Device none at 12/23/2019 1600 All Transfers Goal Most Recent Value LTG Status new at 12/23/2019 1600 LTG [place] Level modified independent at 12/23/2019 1600 LTG Assistive Device 2 wheeled walker (FWW) at 12/23/2019 1600 Gait Goal Most Recent Value LTG Status new at 12/23/2019 1600 LTG [place] Level stand by assist at 12/23/2019 1600 [...] Bed Mobility Supine to Sit, Level of [place]: moderate assist (50% patient effort) Safety Issues: decreased use of legs for bridging/pushing Impairments: strength decreased Transfers Sit-Stand, Level of [place]: moderate assist (50% patient effort) Stand-Sit, Level of [place]: moderate assist (50% patient effort) Tbz-Bwamn-Bkn, Assistive Device: other (see comments)(Up walker) Safety Issues: balance decreased during turns, step length decreased Impairments: strength decreased Gait Level of [place]: moderate assist (50% patient effort) Assistive Device: [...] LTG Status new at 12/23/2019 1600 LTG [place] Level supervised at 12/23/2019 1600 LTG Assistive Device none at 12/23/2019 1600 All Transfers Goal Most Recent Value LTG Status new at 12/23/2019 1600 LTG [place] Level modified independent at 12/23/2019 1600 LTG Assistive Device 2 wheeled walker (FWW) at 12/23/2019 1600 Gait Goal Most Recent Value LTG Status new at 12/23/2019 1600 LTG [place] Level stand by assist at 12/23/2019 1600 [...] HIGH Current Discharge Plan Anticipated [place]charge Disposition[facility] Expected DC Date: 12/30/2019 Barriers to Discharge: placement Steps Taken Toward Discharge: Attended morning rounds Next Steps: d/c to [facility] Community Support Services Current Outpt/Agency/Support Groups: none Community Agency Name: none Other Resources: Discharge Transportation Transportation Needs: agency transportation Notes: Pt not medically ready for discharge. Cm called Idalia NELSON at [facility] and updat ed her on Pt progress. Pt may be ready for d/c Monday. Cm will continue to follow for placem ent needs. Electronically signed: Ja Marcus RN 12/26/2019 11:46 AM lan of Audra Pickard, Nursing [facility] t - 12/26/2019 10:00 AM PDT [...] Bed Mobility Sit to Supine, Level of [place]: maximal assist (25% patient effort), verbal cues requ ired Safety Issues: decreased use of legs for bridging/pushing, decreased use of arms for pushin g/pulling Impairments: strength decreased, pain, impaired balance Transfers Sit-Stand, Level of [place]: moderate assist (50% patient effort), verbal cues require d Stand-Sit, Level of [place]: moderate assist (50% patient effort), verbal cues require d Lcx-Rrnbo-Klv, Assistive Device: 2 wheeled walker (FWW), gait belt Safety Issues: sequencing ability decreased, balance decreased during turns Gait Level of [place]: moderate assist (50% patient effort) Assistive Device: [...] LTG Status new at 12/23/2019 1600 LTG [place] Level supervised at 12/23/2019 1600 LTG Assistive Device none at 12/23/2019 1600 All Transfers Goal Most Recent Value LTG Status new at 12/23/2019 1600 LTG [place] Level modified independent at 12/23/2019 1600 LTG Assistive Device 2 wheeled walker (FWW) at 12/23/2019 1600 Gait Goal Most Recent Value LTG Status new at 12/23/2019 1600 LTG [place] Level stand by assist at 12/23/2019 1600 [...] HIGH Current Discharge Plan Anticipated Discharge Disposition[facility] Expected DC Date: 12/27/2019 Barriers to Discharge: placement Steps Taken Toward Discharge: Attended rounds Next Steps: d/c to [facility] Community Support Services Current Outpt/Agency/Support Groups: none Community Agency Name: none Other Resources: Discharge Transportation Transportation Needs: agency transportation Notes: Pt not medically ready for discharge. Cm received call from [facility] from [facility]. Pt has been accepted but wants [...] (Range of Motion), stair training, strengthening, stretching, armenian ball techniques, w heelchair management/propulsion training Recommended [...] HOB elevated Supine to Sit, Level of [place]: moderate assist (50% patient effort), verbal cues req uired Safety Issues: decreased use of legs for bridging/pushing, decreased use of arms for pushin g/pulling Impairments: strength decreased, pain, impaired balance Transfers Additional Documentation: sit to/from stand Chair-Bed, Level of [place]: moderate assist (50% patient effort), verbal cues require d Lcg-Ztiuh-Tpe, Assistive Device: 2 wheeled walker (FWW) Sit-Stand, Level of [place]: moderate assist (50% patient effort), verbal cues require d Stand-Sit, Level of [place]: moderate assist (50% patient effort), verbal cues require d Cmq-Qagks-Vgb, Assistive Device: 2 wheeled walker (FWW), gait belt Maintain Weight Bearing Status: able to maintain weight bearing status Safety Issues: sequencing ability decreased, balance decreased during turns Impairments: impaired balance, coordination impaired, pain, decreased flexibility Gait Gait Comments: 4 steps to chair Level of [place]: moderate assist (50% patient effort) Assistive Device: [...] LTG Status new at 12/23/2019 1600 LTG [place] Level supervised at 12/23/2019 1600 LTG Assistive Device none at 12/23/2019 1600 All Transfers Goal Most Recent Value LTG Status new at 12/23/2019 1600 LTG [place] Level modified independent at 12/23/2019 1600 LTG Assistive Device 2 wheeled walker (FWW) at 12/23/2019 1600 Gait Goal Most Recent Value LTG Status new at 12/23/2019 1600 LTG [place] Level stand by assist at 12/23/2019 1600 [...] long handled shoe horn, long handled sponge, street light inspector, sock aide(BSC (?)) Barriers to community-based [...] seated in the recliner Grooming, Level of [place]: supervised Assistive Device: none Grooming Assess/Train, Position: sitting Bed Mobility Additional Documentation: supine to/from sit Assistive Device: HOB elevated, bed rails Sit to Supine, Level of [place]: maximal assist (25% patient effort), verbal cues [...] stand, bed to/from chair Chair-Bed, Level of [place]: moderate assist (50% patient effort), verbal cues require d Btd-Yyyhx-Mat, Assistive Device: gait belt Sit-Stand, Level of [place]: moderate assist (50% patient effort), verbal cues require d Stand-Sit, Level of [place]: moderate assist (50% patient effort), verbal cues require d Rrv-Zwmvd-Otl, Assistive Device: 2 wheeled walker (FWW), gait [...] LTG Status new at 12/24/2019 0953 LTG [place] Level moderate assist (50% patient effort), verbal cues required at 12/23 [address] Equipment [address] light inspector, shoe horn, long handled, sock-aid [AE as needed] at 2019 0953 Toilet Transfer Goal Most Recent Value LTG Status new at 12/24/2019 0953 LTG [place] Level minimum assist (75% patient effort), verbal [...] HOB elevated Supine to Sit, Level of [place]: moderate assist (50% patient effort), verbal cues req uired Safety Issues: decreased use of arms for pushing/pulling, decreased use of legs for bridgin g/pushing Impairments: decreased flexibility, pain, impaired balance Transfers Additional Documentation: sit to/from stand Sit-Stand, Level of [place]: minimal assist (75% patient effort) Stand-Sit, Level of [place]: minimal assist (75% patient effort) Alx-Kmyux-Jgr, Assistive Device: 2 wheeled walker (FWW) Maintain Weight Bearing Status: able to maintain weight bearing status Safety Issues: sequencing ability decreased Impairments: decreased flexibility, impaired balance, pain Gait Gait Comments: side stepping to recliner Level of [place]: minimal assist (75% patient effort) Assistive Device: [...] LTG Status new at 12/23/2019 1600 LTG [place] Level supervised at 12/23/2019 1600 LTG Assistive Device none at 12/23/2019 1600 All Transfers Goal Most Recent Value LTG Status new at 12/23/2019 1600 LTG [place] Level modified independent at 12/23/2019 1600 LTG Assistive Device 2 wheeled walker (FWW) at 12/23/2019 1600 Gait Goal Most Recent Value LTG Status new at 12/23/2019 1600 LTG [place] Level stand by assist at 12/23/2019 1600 [...] discharge planning concerns Services Anticipated at Discharge: [facility] Equipment Used at Home: cane, straight, single point, 2 wheeled walker (FWW) Equipment Needed after Discharge: walker, standard Durable Medical Equipment Provider: Pharmacy/Medication Needs: other (see comments)([facility] in [place], [place]) Transportation Needs: agency transportation Initial Plan Anticipated Discharge Disposition: [facility] Expected DC Date: other (see comments)(SNF [...] stated that he would like to go [facility] if needed before going home. Cm called [facility] and received contact info - Idalia Garduno [phone]. Cm sent referral to [facility]. Pt stated that Deanna (daughter) edgardo harmon [...] (Range of Motion), stair training, strengthening, stretching, armenian ball techniques, wheelchair management/propulsio n training Recommended [...] HOB elevated Supine to Sit, Level of [place]: moderate assist (50% patient effort) Sit to Supine, Level of [place]: maximal assist (25% patient effort) Safety Issues: decreased use of arms for pushing/pulling, decreased use of legs for bridgin g/pushing Impairments: decreased flexibility, impaired balance, pain Transfers Additional Documentation: sit to/from stand Sit-Stand, Level of [place]: minimal assist (75% patient effort) Stand-Sit, Level of [place]: minimal assist (75% patient effort) Sep-Avymp-Jwd, Assistive Device: 2 wheeled walker (FWW) Maintain [...] LTG Status new at 12/23/2019 1600 LTG [place] Level supervised at 12/23/2019 1600 LTG Assistive Device none at 12/23/2019 1600 All Transfers Goal Most Recent Value LTG Status new at 12/23/2019 1600 LTG [place] Level modified independent at 12/23/2019 1600 LTG Assistive Device 2 wheeled walker (FWW) at 12/23/2019 1600 Gait Goal Most Recent Value LTG Status new at 12/23/2019 1600 LTG [place] Level stand by assist at 12/23/2019 1600 LTG Assistive Device 2 wheeled walker (FWW) at 12/23/2019 1600 LTG Distance (feet) 50 at 12/23/2019 1600 [facility] - Chasity Alston RN - 12/23/2019 5:32 [...] Melquiades Baez DO - 12/22/2019 10:34 AM [facility] [...] by: Melquiades Baez DO, 12/22/2019 10:[address] 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 EKG and Ches [...] day shift and every two hours on shiftman to monitor and medicate appropriately. 2. Staff [...] | | | | | | [place] [address] | | | | | | [phone] | | | | | | | | +--------+---------+ + + + | 04/21/ | Office | Nephrology | Isiah Jade MD | | | 2019 | Visit | | [address] [facility] | | | | | | [address] | | | | | | [address] | | | | | | | | +--------+---------+ + + + | 05/07/ | Office | Cardiology | Charlee Oswald | | | 2019 | Visit | | [address] | | | | | | [address] | | | | | | [place] [address] | | | | | | [phone] | | | | | | | [...] + +--------+ + + + | *TERMED* IL UPPER GI | Routin | 12/29/2019 | [...] | | | POC | performed at [facility];[address] | | LABORATORY | | | | [address];[place], [place] | | | | | | [address] | | | | + + + + + + + + | Specimen | + + | | + + + + + + + | Performing | Address | City/State/Zipcode | Phone Number | | Organization | | | | + + + + + | [facility] | [address] | [place] [address] | [phone] | + + + + + POC Glucose (01/01/2020 6:29 AM PDT) + + + + + + | Component | Value | Ref Range | Performed | Pathologist | | | | | At | Signature | + + + + + + | Glucose, | 143 (H)Comment: Testing | 65 - 99 mg/dL | [facility] | | | POC | performed at [facility];[address] | | LABORATORY | | | | [address];[place] | | | | | | [address] | | | | + + + + + + + + | Specimen | + + | | + + + + + + + | Performing | Address | City/State/Zipcode | Phone Number | | Organization | | | | + + + + + | [facility] | [address] | [place] [address] | [phone] | + + + + + Basic [...] | 8.6 | 8.5 - 10.5 | [facility] | | | | | mg/dL | LABORATORY | | + + + + + + | Estimated | 23 (L)Comment: GFR <60: | >60 | [facility] | | | GFR | [...] | | | | | | [facility] traceable | | | | | | equation.Testing | | | | | | performed at [facility];[address] | | | | | | [address];[place], [place] | | | | | | [address] | | | | + + + + + + + + | Specimen | + + | Blood | + + + + + + + | Performing | Address | City/State/Zipcode | Phone Number | | Organization | | | | + + + + + | [facility] | [address] | [place] [address] | [phone] | + + + + + CBC [...] | | | Absolute | performed at [facility];[address] | K/uL | LABORATORY | | | | [address];[place] | | | | | | [address] | | | | + + + + + + + + | Specimen | + + | Blood | + + + + + + + | Performing | Address | City/State/Zipcode | Phone Number | | Organization | | | | + + + + + | [facility] | [address] | [place] [address] | [phone] | + + + + + POC [...] | | | POC | performed at [facility];[address] | | LABORATORY | | | | [address];[place] | | | | | | [address] | | | | + + + + + + + + | Specimen | + + | | + + + + + + + | Performing | Address | City/State/Zipcode | Phone Number | | Organization | | | | + + + + + | [facility] | [address] | [place] [address] | [phone] | + + + + + POC [...] | | | POC | performed at [facility];[address] | | LABORATORY | | | | [address];[place], [place] | | | | | | [address] | | | | + + + + + + + + | Specimen | + + | | + + + + + + + | Performing | Address | City/State/Zipcode | Phone Number | | Organization | | | | + + + + + | [facility] | [address] [facility] | [place] [address] | [phone] | + + + + + POC [...] | | | POC | performed at [facility];[address] | | LABORATORY | | | | [address];[place] | | | | | | [address] | | | | + + + + + + + + | Specimen | + + | | + + + + + + + | Performing | Address | City/State/Zipcode | Phone Number | | Organization | | | | + + + + + | [facility] | [address] | [place] [address] | [phone] | + + + + + POC Glucose (12/31/2019 6:36 AM PDT) + + + + + + | Component | Value | Ref Range | Performed | Pathologist | | | | | At | Signature | + + + + + + | Glucose, | 154 (H)Comment: Testing | 65 - 99 mg/dL | [facility] | | | POC | performed at [facility];[address] | | LABORATORY | | | | [address];[place] | | | | | | [address] | | | | + + + + + + + + | Specimen | + + | | + + + + + + + | Performing | Address | City/State/Zipcode | Phone Number | | Organization | | | | + + + + + | [facility] | [address] | [place] [address] | [phone] | + + + + + Basic [...] | 8.5 | 8.5 - 10.5 | [facility] | | | | | mg/dL | LABORATORY | | + + + + + + | Estimated | 18 (L)Comment: GFR <60: | >60 | [facility] | | | GFR | [...] | | | | | | [facility] traceable | | | | | | equation.Testing | | | | | | performed at [facility], [address] | | | | | | [facility], | | | | | | [place] [address] | | | | + + + + + + + + | Specimen | + + | Blood | + + + + + + + | Performing | Address | City/State/Zipcode | Phone Number | | Organization | | | | + + + + + | [facility] | [address] | [place] [address] | [phone] | + + + + + CBC [...] | | | Absolute | performed at [facility], [address] | K/uL | LABORATORY | | | | [address], | | | | | | [place] [address] | | | | + + + + + + + + | Specimen | + + | Blood | + + + + + + + | Performing | Address | City/State/Zipcode | Phone Number | | Organization | | | | + + + + + | [facility] | [address] | [place] [address] | [phone] | + + + + + POC Glucose (12/30/2019 8:55 PM PDT) + + + + + + | Component | Value | Ref Range | Performed | Pathologist | | | | | At | Signature | + + + + + + | Glucose, | 192 (H)Comment: Testing | 65 - 99 mg/dL | [facility] | | | POC | performed at [facility];[address] | | LABORATORY | | | | [address];[place] | | | | | | [address] | | | | + + + + + + + + | Specimen | + + | | + + + + + + + | Performing | Address | City/State/Zipcode | Phone Number | | Organization | | | | + + + + + | [facility] | [address] | [place] [address] | [phone] | + + + + + POC Glucose (12/30/2019 4:11 PM PDT) + + + + + + | Component | Value | Ref Range | Performed | Pathologist | | | | | At | Signature | + + + + + + | Glucose, | 130 (H)Comment: Testing | 65 - 99 mg/dL | [facility] | | | POC | performed at [facility];[address] | | LABORATORY | | | | [address];[place], [place] | | | | | | [address] | | | | + + + + + + + + | Specimen | + + | | + + + + + + + | Performing | Address | City/State/Zipcode | Phone Number | | Organization | | | | + + + + + | [facility] | [address] | [place] [address] | [phone] | + + + + + POC [...] | | | POC | performed at [facility];[address] | | LABORATORY | | | | [address];[place] | | | | | | [address] | | | | + + + + + + + + | Specimen | + + | | + + + + + + + | Performing | Address | City/State/Zipcode | Phone Number | | Organization | | | | + + + + + | [facility] | [address] | [place] [address] | [phone] | + + + + + Basic [...] 20 (L)Comment: GFR <60: | >60 | [facility] | | | GFR | [...] | | | | | | [facility] traceable | | | | | | equation.Testing | | | | | | performed at [facility];[address] | | | | | | [facility];[place], [place] | | | | | | [address] | | | | + + + + + + + + | Specimen | + + | Blood | + + + + + + + | Performing | Address | City/State/Zipcode | Phone Number | | Organization | | | | + + + + + | [facility] | [address] [facility] | [place] [address] | [phone] | + + + + + POC [...] | | | POC | performed at [facility];[address] | | LABORATORY | | | | [address];[place] | | | | | | [address] | | | | + + + + + + + + | Specimen | + + | | + + + + + + + | Performing | Address | City/State/Zipcode | Phone Number | | Organization | | | | + + + + + | [facility] | [address] | [place] [address] | [phone] | + + + + + CBC [...] | | | Absolute | performed at [facility];[address] | K/uL | LABORATORY | | | | [address];[place] | | | | | | [address] | | | | + + + + + + + + | Specimen | + + | Blood | + + + + + + + | Performing | Address | City/State/Zipcode | Phone Number | | Organization | | | | + + + + + | [facility] | [address] | [place] [address] | [phone] | + + + + + POC [...] | | | POC | performed at [facility];[address] | | LABORATORY | | | | [address];[place] | | | | | | [address] | | | | + + + + + + + + | Specimen | + + | | + + + + + + + | Performing | Address | City/State/Zipcode | Phone Number | | Organization | | | | + + + + + | [facility] | [address] | [place] [address] | [phone] | + + + + + Hemoglobin [...] Testing | 39.0 - 50.0 % | [facility] | | | | performed at [facility];888 | | LABORATORY | | | | [address];[place] | | | | | | [address] | | | | + + + + + + + + | Specimen | + + | Blood | + + + + + + + | Performing | Address | City/State/Zipcode | Phone Number | | Organization | | | | + + + + + | [facility] | [address] | [place] [address] | [phone] | + + + + + POC [...] | | | POC | performed at [facility];[address] | | LABORATORY | | | | [address];[place], [place] | | | | | | [address] | | | | + + + + + + + + | Specimen | + + | | + + + + + + + | Performing | Address | City/State/Zipcode | Phone Number | | Organization | | | | + + + + + | [facility] | [address] | [place] [address] | [phone] | + + + + + Hemoglobin [...] [facility] | | | | performed at [facility];[address] | | LABORATORY | | | | [address];[place], [place] | | | | | | [address] | | | | + + + + + + + + | Specimen | + + | Blood | + + + + + + + | Performing | Address | City/State/Zipcode | Phone Number | | Organization | | | | + + + + + | [facility] | [address] | [place] [address] | [phone] | + + + + + POC [...] | | | POC | performed at [facility];[address] | | LABORATORY | | | | [address];[place], [place] | | | | | | [address] | | | | + + + + + + + + | Specimen | + + | | + + + + + + + | Performing | Address | City/State/Zipcode | Phone Number | | Organization | | | | + + + + + | [facility] | [address] | [place] [address] | [phone] | + + + + + POC Glucose (12/29/2019 11:06 AM PDT) + + + + + + | Component | Value | Ref Range | Performed | Pathologist | | | | | At | Signature | + + + + + + | Glucose, | 205 (H)Comment: Testing | 65 - 99 mg/dL | [facility] | | | POC | performed at [facility];[address] | | LABORATORY | | | | [address];[place] | | | | | | [address] | | | | + + + + + + + + | Specimen | + + | | + + + + + + + | Performing | Address | City/State/Zipcode | Phone Number | | Organization | | | | + + + + + | [facility] | [address] | [place] [address] | [phone] | + + + + + Surgical [...] | | technical component was performed by [email or web address], [address] [place] [address] | | | [place] [address] (Court Commissioner: Padmini Sellers MD; CLIA# | | | [id number]). Professional interpretation was performed by[facility] | | | [facility], [address], | | | [place] [address] ([address] Commissioner: Oscar Maynard M.D.; CLIA#: | | | [id number]). Diagnostician: Padmini Sellers | | | MDPathologistElectronically [...] | |The technical component was performed by [email or web address], [address] [place] [address] ([address] Commissioner: Padmini Sellers MD; CLIA# [id number]). Professional interpretation was performed by | | |[email or web address], [address] [address] (Court Commissioner: Oscar Maynard M.D.; CLIA#: [id number]). | | | | | |Diagnostician: Padmini [...] Performed At | + + + | [facility] | [facility] | | [facility] | [facility] | | [facility] | | | Patient Name: Andres Guzmán | | | Procedure Date: 12/29/2019 8:36 AMMRN: [id number] | | | of : 1930 | [...] the anesthesiologist and the | | | pharmacy picking technician in the pre-procedure area in the [...] | | | with Gold probe 7 Bel[place] x 5 pulses was successful with | [...] | | | AMNumber of Addenda: 0 [facility] | | | - Check hemoglobin q 6 hours for one day. | | | | | | | | |LAMONT HERNANDEZ MD | | |12/29/2019 10:19:54 AM | | |This report has been signed electronically. | | | | | |Note Initiated On: 12/29/2019 8:36 AM | | |Number of Addenda: 0 | | | | | | [facility] | | + + + + +---------+ [...] [facility] | | | | performed at [facility];888 | | LABORATORY | | | | [address];[place] | | | | | | [address] | | | | + + + + + + + + | Specimen | + + | Blood | + + + + + + + | Performing | Address | City/State/Zipcode | Phone Number | | Organization | | | | + + + + + | [facility] | [address] | [place] [address] | [phone] | + + + + + POC Glucose (12/29/2019 6:06 AM PDT) + + + + + + | Component | Value | Ref Range | Performed | Pathologist | | | | | At | Signature | + + + + + + | Glucose, | 146 (H)Comment: Testing | 65 - 99 mg/dL | [facility] | | | POC | performed at [facility];[address] | | LABORATORY | | | | [address];[place], [place] | | | | | | [address] | | | | + + + + + + + + | Specimen | + + | | + + + + + + + | Performing | Address | City/State/Zipcode | Phone Number | | Organization | | | | + + + + + | [facility] | [address] | [place] [address] | [phone] | + + + + + CBC [...] | | | Absolute | performed at [facility];[address] | K/uL | LABORATORY | | | | [address];[place] | | | | | | [address] | | | | + + + + + + + + | Specimen | + + | Blood | + + + + + + + | Performing | Address | City/State/Zipcode | Phone Number | | Organization | | | | + + + + + | [facility] | [address] | [place] [address] | [phone] | + + + + + Protime [...] | | | | | performed at [facility] | | | | | | [address];[place], [place] | | | | | | [address] | | | | + + + + + + + + | Specimen | + + | Blood | + + + + + + + | Performing | Address | City/State/Zipcode | Phone Number | | Organization | | | | + + + + + | [facility] | [address] | [place] [address] | [phone] | + + + + + Basic [...] | | | | | performed at [facility];[address] | | | | | | [address];[place], [place] | | | | | | [address] | | | | + + + + + + + + | Specimen | + + | Blood | + + + + + + + | Performing | Address | City/State/Zipcode | Phone Number | | Organization | | | | + + + + + | [facility] | [address] | [place] [address] | [phone] | + + + + + POC [...] | | | POC | performed at [facility];[address] | | LABORATORY | | | | [address];[place], [place] | | | | | | [address] | | | | + + + + + + + + | Specimen | + + | | + + + + + + + | Performing | Address | City/State/Zipcode | Phone Number | | Organization | | | | + + + + + | [facility] | [address] | [place] [address] | [phone] | + + + + + Hemoglobin [...] [facility] | | | | performed at [facility];[address] | | LABORATORY | | | | [address];[place], [place] | | | | | | [address] | | | | + + + + + + + + | Specimen | + + | Blood | + + + + + + + | Performing | Address | City/State/Zipcode | Phone Number | | Organization | | | | + + + + + | [facility] | [address] | [place] [address] | [phone] | + + + + + POC [...] | | | POC | performed at [facility];[address] | | LABORATORY | | | | [address];[place], [place] | | | | | | [address] | | | | + + + + + + + + | Specimen | + + | | + + + + + + + | Performing | Address | City/State/Zipcode | Phone Number | | Organization | | | | + + + + + | [facility] | [address] | [place] [address] | [phone] | + + + + + Fecal [...] | | LABORATORY | | | | [facility];[address];[place] [address] | | | | + + + + + + + + | Specimen | + + | Stool - Stool | | specimen (specimen) | + + + + + + + | Performing | Address | City/State/Zipcode | Phone Number | | Organization | | | | + + + + + | [facility] | [address] | [place] [address] | [phone] | + + + + + POC Glucose (12/28/2019 4:32 PM PDT) + + + + + + | Component | Value | Ref Range | Performed | Pathologist | | | | | At | Signature | + + + + + + | Glucose, | 124 (H)Comment: Testing | 65 - 99 mg/dL | [facility] | | | POC | performed at [facility];[address] | | LABORATORY | | | | [address];[place] | | | | | | [address] | | | | + + + + + + + + | Specimen | + + | | + + + + + + + | Performing | Address | City/State/Zipcode | Phone Number | | Organization | | | | + + + + + | [facility] | [address] | [place] [address] | [phone] | + + + + + Hemoglobin [...] [facility] | | | | performed at [facility];[address] | | LABORATORY | | | | [address];[place], [place] | | | | | | [address] | | | | + + + + + + + + | Specimen | + + | Blood | + + + + + + + | Performing | Address | City/State/Zipcode | Phone Number | | Organization | | | | + + + + + | [facility] | [address] | [place] [address] | [phone] | + + + + + POC Glucose (12/28/2019 11:59 AM PDT) + + + + + + | Component | Value | Ref Range | Performed | Pathologist | | | | | At | Signature | + + + + + + | Glucose, | 163 (H)Comment: Testing | 65 - 99 mg/dL | [facility] | | | POC | performed at [facility];[address] | | LABORATORY | | | | [address];[place] | | | | | | [address] | | | | + + + + + + + + | Specimen | + + | | + + + + + + + | Performing | Address | City/State/Zipcode | Phone Number | | Organization | | | | + + + + + | [facility] | [address] | [place] [address] | [phone] | + + + + + POC [...] | | | POC | performed at [facility];[address] | | LABORATORY | | | | [address];[place], [place] | | | | | | [address] | | | | + + + + + + + + | Specimen | + + | | + + + + + + + | Performing | Address | City/State/Zipcode | Phone Number | | Organization | | | | + + + + + | [facility] | [address] | [place] [address] | [phone] | + + + + + CBC [...] | | | Absolute | performed at [facility], [address] | K/uL | LABORATORY | | | | [address], | | | | | | [place] [address] | | | | + + + + + + + + | Specimen | + + | Blood | + + + + + + + | Performing | Address | City/State/Zipcode | Phone Number | | Organization | | | | + + + + + | [facility] | [address] | [place] [address] | [phone] | + + + + + Basic [...] | | | | | performed at [facility], [address] | | | | | | [facility], | | | | | | [place] [address] | | | | + + + + + + + + | Specimen | + + | Blood | + + + + + + + | Performing | Address | City/State/Zipcode | Phone Number | | Organization | | | | + + + + + | [facility] | [address] | [place] [address] | [phone] | + + + + + POC [...] | | | POC | performed at [facility];[address] | | LABORATORY | | | | [address];[place], [place] | | | | | | [address] | | | | + + + + + + + + | Specimen | + + | | + + + + + + + | Performing | Address | City/State/Zipcode | Phone Number | | Organization | | | | + + + + + | [facility] | [address] | [place] [address] | [phone] | + + + + + POC [...] | | | POC | performed at [facility];[address] | | LABORATORY | | | | [address];[place] | | | | | | [address] | | | | + + + + + + + + | Specimen | + + | | + + + + + + + | Performing | Address | City/State/Zipcode | Phone Number | | Organization | | | | + + + + + | [facility] | [address] | [place] [address] | [phone] | + + + + + Red [...] | [facility] | | | COMMENT | [facility];[address] | | LABORATORY | | | | [address];[place] [address] | | | | + + + + + + + + | Specimen | + + | | + + + + + + + | Performing | Address | City/State/Zipcode | Phone Number | | Organization | | | | + + + + + | [facility] | [address] | [place] [address] | [phone] | + + + + + Type [...] + + + | BB BAND | [id number] | | [facility] | | | | | | LABORATORY | | + + + + + + | UNIT # | [id number] | | [facility] | | | | [...] + + + | UNIT # | [id number] | | [facility] | | | | [...] | | | RESULT | performed at [facility];[address] | | LABORATORY | | | | [address];[place] | | | | | | [address] | | | | + + + + + + + + | Specimen | + + | Blood | + + + + + + + | Performing | Address | City/State/Zipcode | Phone Number | | Organization | | | | + + + + + | [facility] | [address] | [place] [address] | [phone] | + + + + + POC [...] | | | POC | performed at [facility];[address] | | LABORATORY | | | | [address];[place], [place] | | | | | | [address] | | | | + + + + + + + + | Specimen | + + | | + + + + + + + | Performing | Address | City/State/Zipcode | Phone Number | | Organization | | | | + + + + + | [facility] | [address] | [place] [address] | [phone] | + + + + + CBC [...] 0.02Comment: Testing | 0.00 - 0.10 | [facility] | | | Absolute | performed at [facility], [address] | K/uL | LABORATORY | | | | [address], | | | | | | [place] [address] | | | | + + + + + + + + | Specimen | + + | | + + + + + + + | Performing | Address | City/State/Zipcode | Phone Number | | Organization | | | | + + + + + | [facility] | [address] | [place] [address] | [phone] | + + + + + Procalcitonin [...] | | | | | | at [facility];[address] [place] [address] | | | | | | [facility];[place] [address] | | | | + + + + + + + + | Specimen | + + | Blood | + + + + + + + | Performing | Address | City/State/Zipcode | Phone Number | | Organization | | | | + + + + + | [facility] | [address] | [place] [address] | [phone] | + + + + + Basic [...] | | | | | | [facility] traceable | | | | | | equation.Testing | | | | | | performed at [facility], [address] | | | | | | [facility], | | | | | | [place] [address] | | | | + + + + + + + + | Specimen | + + | Blood | + + + + + + + | Performing | Address | City/State/Zipcode | Phone Number | | Organization | | | | + + + + + | [facility] | [address] | [place] [address] | [phone] | + + + + + Vitamin [...] | | | | defined by the [place] | | | | | | [facility] and an | | | | [...] IOM | | | | | | ([place] [employer]). | | | | | [...] Hugh; | | | | | | 96(3):1911-30.Testing | | | | | | performed at [facility], | | | | | | [address], | | | | | | [facility] [address] | | | | + + + + + + + + | Specimen | + + | Blood | + + + + + + + | Performing | Address | City/State/Zipcode | Phone Number | | Organization | | | | + + + + + | [facility] | [address] | [place] [address] | [phone] | + + + + + Potassium (12/27/2019 12:08 AM PDT) + + + + + + | Component | Value | Ref Range | Performed | Pathologist | | | | | At | Signature | + + + + + + | K | 4.0Comment: Testing | 3.5 - 4.9 | [facility] | | | | performed at [facility];[address] | mmol/L | LABORATORY | | | | [address];[place] | | | | | | [address] | | | | + + + + + + + + | Specimen | + + | Blood | + + + + + + + | Performing | Address | City/State/Zipcode | Phone Number | | Organization | | | | + + + + + | [facility] | [address] | [place] [address] | [phone] | + + + + + Magnesium (12/27/2019 12:08 AM PDT) + + + + + + | Component | Value | Ref Range | Performed | Pathologist | | | | | At | Signature | + + + + + + | Magnesium | 2.2Comment: Testing | 1.7 - 2.4 mg/dL | [facility] | | | | performed at [facility];[address] | | LABORATORY | | | | [address];[place], [place] | | | | | | [address] | | | | + + + + + + + + | Specimen | + + | Blood | + + + + + + + | Performing | Address | City/State/Zipcode | Phone Number | | Organization | | | | + + + + + | [facility] | [address] | [place] [address] | [phone] | + + + + + ECG [...] | | | | | YANIV ROONEY (0526) | | | | | | on [...] | | | POC | performed at [facility];[address] | | LABORATORY | | | | [address];[place] | | | | | | [address] | | | | + + + + + + + + | Specimen | + + | | + + + + + + + | Performing | Address | City/State/Zipcode | Phone Number | | Organization | | | | + + + + + | [facility] | [address] | [place] [address] | [phone] | + + + + + POC Glucose (12/26/2019 5:02 PM PDT) + + + + + + | Component | Value | Ref Range | Performed | Pathologist | | | | | At | Signature | + + + + + + | Glucose, | 154 (H)Comment: Testing | 65 - 99 mg/dL | [facility] | | | POC | performed at [facility];[address] | | LABORATORY | | | | [address];[place], [place] | | | | | | [address] | | | | + + + + + + + + | Specimen | + + | | + + + + + + + | Performing | Address | City/State/Zipcode | Phone Number | | Organization | | | | + + + + + | [facility] | [address] | [place] [address] | [phone] | + + + + + Complement [...] | | | COMPLEMENT | performed at [facility], | | LABORATORY | | | | [address], | | | | | | [place] [address] | | | | + + + + + + + + | Specimen | + + | | + + + + + + + | Performing | Address | City/State/Zipcode | Phone Number | | Organization | | | | + + + + + | [facility] | [address] | [place] [address] | [phone] | + + + + + Complement C3 Ag (12/26/2019 12:33 PM PDT) + + + + + + | Component | Value | Ref Range | Performed | Pathologist | | | | | At | Signature | + + + + + + | C3 | 53 (L)Comment: Testing | 82 - 167 mg/dL | [facility] | | | COMPLEMENT | performed at [facility], | | LABORATORY | | | | [address], | | | | | | [facility] [address] | | | | + + + + + + + + | Specimen | + + | | + + + + + + + | Performing | Address | City/State/Zipcode | Phone Number | | Organization | | | | + + + + + | [facility] | [address] | [place] [address] | [phone] | + + + + + POC Glucose (12/26/2019 11:15 AM PDT) + + + + + + | Component | Value | Ref Range | Performed | Pathologist | | | | | At | Signature | + + + + + + | Glucose, | 161 (H)Comment: Testing | 65 - 99 mg/dL | [facility] | | | POC | performed at [facility];[address] | | LABORATORY | | | | [address];[place] | | | | | | [address] | | | | + + + + + + + + | Specimen | + + | | + + + + + + + | Performing | Address | City/State/Zipcode | Phone Number | | Organization | | | | + + + + + | [facility] | [address] | [place] [address] | [phone] | + + + + + POC [...] | | | POC | performed at [facility];[address] | | LABORATORY | | | | [address];[place], [place] | | | | | | [address] | | | | + + + + + + + + | Specimen | + + | | + + + + + + + | Performing | Address | City/State/Zipcode | Phone Number | | Organization | | | | + + + + + | [facility] | [address] | [place] [address] | [phone] | + + + + + Parathyroid Hormone, Intraoperative (12/26/2019 4:25 AM PDT) + + + + + + | Component | Value | Ref Range | Performed | Pathologist | | | | | At | Signature | + + + + + + | PTH Intact | 167.0 (H)Comment: | 8.7 - 79.6 | [facility] | | | | Testing performed at | pg/mL | LABORATORY | | | | [facility];[address] | | | | [address];[place] [address] | | | | + + + + + + + + | Specimen | + + | | + + + + + + + | Performing | Address | City/State/Zipcode | Phone Number | | Organization | | | | + + + + + | [facility] | [address] | [place] [address] | [phone] | + + + + + Renal [...] | | | | | performed at [facility], [address] | | | | | | [facility], | | | | | | [place] [address] | | | | + + + + + + + + | Specimen | + + | Blood | + + + + + + + | Performing | Address | City/State/Zipcode | Phone Number | | Organization | | | | + + + + + | [facility] | [address] | [place] [address] | [phone] | + + + + + POC [...] | | | POC | performed at [facility];[address] | | LABORATORY | | | | [address];[place] | | | | | | [address] | | | | + + + + + + + + | Specimen | + + | | + + + + + + + | Performing | Address | City/State/Zipcode | Phone Number | | Organization | | | | + + + + + | [facility] | [address] | [place] [address] | [phone] | + + + + + POC Glucose (12/25/2019 5:13 PM PDT) + + + + + + | Component | Value | Ref Range | Performed | Pathologist | | | | | At | Signature | + + + + + + | Glucose, | 133 (H)Comment: Testing | 65 - 99 mg/dL | [facility] | | | POC | performed at [facility];[address] | | LABORATORY | | | | [address];[place] | | | | | | [address] | | | | + + + + + + + + | Specimen | + + | | + + + + + + + | Performing | Address | City/State/Zipcode | Phone Number | | Organization | | | | + + + + + | [facility] | [address] | [place] [address] | [phone] | + + + + + ECHO [...] | | | POC | performed at [facility];[address] | | LABORATORY | | | | [address];[place], [place] | | | | | | [address] | | | | + + + + + + + + | Specimen | + + | | + + + + + + + | Performing | Address | City/State/Zipcode | Phone Number | | Organization | | | | + + + + + | [facility] | [address] | [place] [address] | [phone] | + + + + + POC [...] | | | POC | performed at [facility];[address] | | LABORATORY | | | | [address];[place] | | | | | | [address] | | | | + + + + + + + + | Specimen | + + | | + + + + + + + | Performing | Address | City/State/Zipcode | Phone Number | | Organization | | | | + + + + + | [facility] | [address] | [place] [address] | [phone] | + + + + + CK Total (12/25/2019 4:25 AM PDT) + + + + + + | Component | Value | Ref Range | Performed | Pathologist | | | | | At | Signature | + + + + + + | CK TOTAL | 104Comment: Testing | 55 - 400 U/L | [facility] | | | | performed at [facility];[address] | | LABORATORY | | | | [address];[place] | | | | | | [address] | | | | + + + + + + + + | Specimen | + + | Blood | + + + + + + + | Performing | Address | City/State/Zipcode | Phone Number | | Organization | | | | + + + + + | [facility] | [address] | [place] [address] | [phone] | + + + + + Renal [...] 13 (L)Comment: GFR <60: | >60 | [facility] | | | GFR | [...] | | | | | | [facility] traceable | | | | | | equation.Testing | | | | | | performed at [facility], [address] | | | | | [facility], | | | | | | [place] [address] | | | | + + + + + + + + | Specimen | + + | Blood | + + + + + + + | Performing | Address | City/State/Zipcode | Phone Number | | Organization | | | | + + + + + | [facility] | [address] | [place] [address] | [phone] | + + + + + Cytoplasmic [...] | | | | | with both [place] and | | | | | | [...] | | | | | [address] [facility], | | | | | | [facility] [address] | | | | + + + + + + + + | Specimen | + + | Blood | + + + + + + + | Performing | Address | City/State/Zipcode | Phone Number | | Organization | | | | + + + + + | [facility] | [address] | [place] [address] | [phone] | + + + + + Sedimentation [...] | | | | | [place] [address] | | | | + + + + + + + + | Specimen | + + | Blood | + + + + + + + | Performing | Address | City/State/Zipcode | Phone Number | | Organization | | | | + + + + + | [facility] | [address] | [place] [address] | [phone] | + + + + + Immunoglobulin, Free [place] Chain (12/25/2019 4:22 AM PDT) + + + + + + | Component | Value | Ref Range | Performed | Pathologist | | | | | At | Signature | + + + + + + | [place] [facility] | 121.2 (H) | 3.3 - [...] + + + + + + | [place] | 1.25Comment: Testing | 0.26 - 1.65 | [facility] | | | a Free | performed at [facility] | | LABORATORY | | | Light Chain | [address] | | | | | Ratio | [place] [id number] | | | | + + + + + + + + | Specimen | + + | Blood | + + + + + + + | Performing | Address | City/State/Zipcode | Phone Number | | Organization | | | | + + + + + | [facility] | [address] | [place] [address] | [phone] | + + + + + Glomerular [...] | | | | | | [facility], [address] [place] [address] | | | | | | [place] | | | | | | [address] | | | | + + + + + + + + | Specimen | + + | Blood | + + + + + + + | Performing | Address | City/State/Zipcode | Phone Number | | Organization | | | | + + + + + | [facility] | [address] | [place] [address] | [phone] | + + + + + Hepatitis [...] | | | | | | 0.9The [facility] recommends | | | | | | that a positive HCV | | | | | | antibody resultbe | | | | | | followed up with a HCV | | | | | | Nucleic Acid | | | | | | Amplificationtest | | | | | | ([id number]).Testing | | | | | | performed at [facility], | | | | | | [address], | | | | | | [facility] [address] | | | | + + + + + + + + | Specimen | + + | Blood | + + + + + + + | Performing | Address | City/State/Zipcode | Phone Number | | Organization | | | | + + + + + | [facility] | [address] | [place] [address] | [phone] | + + + + + CK Total (12/25/2019 4:22 AM PDT) + + + + + + | Component | Value | Ref Range | Performed | Pathologist | | | | | At | Signature | + + + + + + | CK TOTAL | 100Comment: Testing | 55 - 400 U/L | [place] | | | | performed at [facility] | | LABORATORY | | | | [facility];[place], [place] | | | | | | [address] | | | | + + + + + + + + | Specimen | + + | Blood | + + + + + + + | Performing | Address | City/State/Zipcode | Phone Number | | Organization | | | | + + + + + | [facility] | [address] | [place] [address] | [phone] | + + + + + Lactate Dehydrogenase (12/25/2019 4:22 AM PDT) + + + + + + | Component | Value | Ref Range | Performed | Pathologist | | | | | At | Signature | + + + + + + | LDH TOTAL | 154Comment: Testing | 120 - 246 U/L | [facility] | | | | performed at [facility];[address] | | LABORATORY | | | | [address];[place] | | | | | | [address] | | | | + + + + + + + + | Specimen | + + | Blood | + + + + + + + | Performing | Address | City/State/Zipcode | Phone Number | | Organization | | | | + + + + + | [facility] | [address] | [place] [address] | [phone] | + + + + + Magnesium (12/25/2019 4:22 AM PDT) + + + + + + | Component | Value | Ref Range | Performed | Pathologist | | | | | At | Signature | + + + + + + | Magnesium | 2.5 (H)Comment: Testing | 1.7 - 2.4 mg/dL | [facility] | | | | performed at [facility], [address] | | LABORATORY | | | | [address], | | | | | | [place] [address] | | | | + + + + + + + + | Specimen | + + | Blood | + + + + + + + | Performing | Address | City/State/Zipcode | Phone Number | | Organization | | | | + + + + + | [facility] | [address] | [place] [address] | [phone] | + + + + + Protein, [...] LABORATORY | | | | performed at [facility], [address] | | | | | [address], | | | | | | [place] [address] | | | | + + + + + + + + | Specimen | + + | | + + + + + + + | Performing | Address | City/State/Zipcode | Phone Number | | Organization | | | | + + + + + | [facility] | [address] | [place] [address] | [phone] | + + + + + Creatinine, Urine, Random (12/25/2019 12:01 AM PDT) + + + + + + | Component | Value | Ref Range | Performed | Pathologist | | | | | At | Signature | + + + + + + | Creatinine, | 139.0Comment: NO NORMAL | mg/dL | [facility] | | | random | [facility] ESTABLISHEDTesting | | LABORATORY | | | urine | performed at [facility], [address] | | | | | | [address], | | | | | | [place] [address] | | | | + + + + + + + + | Specimen | + + | | + + + + + + + | Performing | Address | City/State/Zipcode | Phone Number | | Organization | | | | + + + + + | [facility] | [address] | [place] [address] | [phone] | + + + + + Protein/Creatinine Ratio, Urine (12/25/2019 12:01 AM PDT) + + + + + + | Component | Value | Ref Range | Performed | Pathologist | | | | | At | Signature | + + + + + + | PRO/CREA | 0.942Comment: Testing | | [facility] | | | RATIO,URINE | performed at [facility], [address] | | LABORATORY | | | | [address], | | | | | | [place] [address] | | | | + + + + + + + + | Specimen | + + | Urine | + + + + + + + | Performing | Address | City/State/Zipcode | Phone Number | | Organization | | | | + + + + + | [facility] | [address] | [place] [address] | [phone] | + + + + + POC [...] | | | POC | performed at [facility];[address] | | LABORATORY | | | | [address];[place], [place] | | | | | | [address] | | | | + + + + + + + + | Specimen | + + | | + + + + + + + | Performing | Address | City/State/Zipcode | Phone Number | | Organization | | | | + + + + + | [facility] | [address] | [place] [address] | [phone] | + + + + + POC [...] | | | POC | performed at [facility];[address] | | LABORATORY | | | | [address];[place], [place] | | | | | | [address] | | | | + + + + + + + + | Specimen | + + | | + + + + + + + | Performing | Address | City/State/Zipcode | Phone Number | | Organization | | | | + + + + + | [facility] | [address] | [place] [address] | [phone] | + + + + + ECG [...] | | | Arterial, | performed at [facility];[address] | | LABORATORY | | | POC | [address];[place], [place] | | | | | | [address] | | | | + + + + + + + + | Specimen | + + | | + + + + + + + | Performing | Address | City/State/Zipcode | Phone Number | | Organization | | | | + + + + + | [facility] | [address] [facility] | [place] [address] | [phone] | + + + + + Coronavirus (COVID-19) NAAT (12/24/2019 1:10 PM PDT) + + + + + + | Component | Value | Ref Range | Performed | Pathologist | | | | | At | Signature | + + + + + + | SARS-CoV-2, | NEGATIVEComment: Testing | NEG | [facility] | | | NAAT | performed at [facility];[address] | | LABORATORY | | | (COVID-19) | [address];[place], [place] | | | | | | [address] | | | | + + + + + + + + | Specimen | + + | Tissue - Entire | | nasopharynx (body | | structure) | + + + + + + + | Performing | Address | City/State/Zipcode | Phone Number | | Organization | | | | + + + + + | [facility] | [address] | [place] [address] | [phone] | + + + + + Culture, [...] | | LABORATORY | | | | Blvd;[place] [address] | | | | + + + + + + | RESULT | NO GROWTH 6 DAYS | | [facility] | | | | | | LABORATORY | | + + + + + + | RESULT | Testing performed at | | [facility] | | | | [facility], [address] | | LABORATORY | | | | [place] [place], [place] | | | | | | [address]Bopzrup: Testing | | | | | | performed at [facility], [address] | | | | | | [address], [place], [place] | | | | | | [address] | | | | + + + + + + + + | Specimen | + + | Blood - Peripheral | | blood specimen | | (specimen) | + + + + + + + | Performing | Address | City/State/Zipcode | Phone Number | | Organization | | | | + + + + + | [facility] | [address] | [place] [address] | [phone] | + + + + + Culture, [...] | | LABORATORY | | | | Blvd;[place] [address] | | | | + + + + + + | RESULT | NO GROWTH 6 DAYS | | [facility] | | | | | | LABORATORY | | + + + + + + | RESULT | Testing performed at | | [facility] | | | | [facility], [address] | | LABORATORY | | | | [place] | | | | | | [address]Lspyyax: Testing | | | | | | performed at [facility], [address] | | | | | | [address], [place], [place] | | | | | | [address] | | | | + + + [...] [facility] | [address] | [place] [address] | [phone] | + + + + + Urinalysis [...] - 1.030 | [facility] | | | Institute, | | | LABORATORY | | | [...] | 1+ (A)Comment: Testing | NONE | [facility] | | | Urine | performed at [facility], [address] | | LABORATORY | | | | [address], | | | | | | [place] [address] | | | | + + + [...] | + + + + + | [facility] | [address] | [place] [address] | [phone] | + + + + + Sodium, [...] | | | urine | performed at [facility], [address] | | | | | | [address], | | | | | | [place] [address] | | | | + + + [...] | + + + + + | [facility] | [address] | [place] [address] | [phone] | + + + + + Creatinine, Urine, Random (12/24/2019 12:45 PM PDT) + + + + + + | Component | Value | Ref Range | Performed | Pathologist | | | | | At | Signature | + + + + + + | Creatinine, | 70.0Comment: NO NORMAL | mg/dL | [facility] | | | random | RANGE ESTABLISHEDTesting | | LABORATORY | | | urine | performed at [facility], [address] | | | | | | [address] [facility], | | | | | | [place] [address] | | | | + + + [...] | + + + + + | [facility] | [address] | [place] [address] | [phone] | + + + + + Lactic Acid (12/24/2019 12:27 PM PDT) + + + + + + | Component | Value | Ref Range | Performed | Pathologist | | | | | At | Signature | + + + + + + | Lactate, | 1.6Comment: Testing | 0.4 - 2.0 | [facility] | | | Serum | performed at [facility];[address] | mmol/L | LABORATORY | | | | [address];[place], [place] | | | | | | [address] | | | | + + + + + + + + | Specimen | + + | Blood | + + + + + + + | Performing | Address | City/State/Zipcode | Phone Number | | Organization | | | | + + + + + | [facility] | [address] | [place] [address] | [phone] | + + + + + Procalcitonin (12/24/2019 12:27 PM PDT) + + + + + + | Component | Value | Ref Range | Performed | Pathologist | | | | | At | Signature | + + + + + + | PROCALCITON | 0.69 (H)Comment: | <0.5 ng/mL | [facility] | | | IN | [...] | | | | | | at [facility];[address] [place] [address] | | | | | | [facility];[place] [address] | | | | + + + + + + + + | Specimen | + + | Blood | + + + + + + + | Performing | Address | City/State/Zipcode | Phone Number | | Organization | | | | + + + + + | [facility] | [address] | [place] [address] | [phone] | + + + + + POC Glucose (12/24/2019 12:25 PM PDT) + + + + + + | Component | Value | Ref Range | Performed | Pathologist | | | | | At | Signature | + + + + + + | Glucose, | 143 (H)Comment: Testing | 65 - 99 mg/dL | [facility] | | | POC | performed at [facility];[address] | | LABORATORY | | | | [address];[place] | | | | | | [address] | | | | + + + + + + + + | Specimen | + + | | + + + + + + + | Performing | Address | City/State/Zipcode | Phone Number | | Organization | | | | + + + + + | [facility] | [address] | [place] [address] | [phone] | + + + + + POC [...] | | | POC | performed at [facility];[address] | | LABORATORY | | | | [address];[place], [place] | | | | | | [address] | | | | + + + + + + + + | Specimen | + + | | + + + + + + + | Performing | Address | City/State/Zipcode | Phone Number | | Organization | | | | + + + + + | [facility] | [address] | [place] [address] | [phone] | + + + + + CBC [...] LABORATORY | | | | performed at [facility];[address] | | | | | | [address];[place] | | | | | | [address] | | | | + + + + + + + + | Specimen | + + | Blood | + + + + + + + | Performing | Address | City/State/Zipcode | Phone Number | | Organization | | | | + + + + + | [facility] | [address] | [place] [address] | [phone] | + + + + + Basic [...] | | | | | performed at [facility], [address] | | | | | | [facility], | | | | | | [place] [address] | | | | + + + + + + + + | Specimen | + + | Blood | + + + + + + + | Performing | Address | City/State/Zipcode | Phone Number | | Organization | | | | + + + + + | [facility] | [address] | [place] [address] | [phone] | + + + + + POC Glucose (12/23/2019 8:35 PM PDT) + + + + + + | Component | Value | Ref Range | Performed | Pathologist | | | | | At | Signature | + + + + + + | Glucose, | 135 (H)Comment: Testing | 65 - 99 mg/dL | [facility] | | | POC | performed at [facility];[address] | | LABORATORY | | | | [address];[place] | | | | | | [address] | | | | + + + + + + + + | Specimen | + + | | + + + + + + + | Performing | Address | City/State/Zipcode | Phone Number | | Organization | | | | + + + + + | [facility] | [address] | [place] [address] | [phone] | + + + + + POC [...] | | | POC | performed at [facility];[address] | | LABORATORY | | | | [address];[place], [place] | | | | | | [address] | | | | + + + + + + + + | Specimen | + + | | + + + + + + + | Performing | Address | City/State/Zipcode | Phone Number | | Organization | | | | + + + + + | [facility] | [address] | [place] [address] | [phone] | + + + + + POC [...] | | | POC | performed at [facility];[address] | | LABORATORY | | | | [address];[place] | | | | | | [address] | | | | + + + + + + + + | Specimen | + + | | + + + + + + + | Performing | Address | City/State/Zipcode | Phone Number | | Organization | | | | + + + + + | [facility] | [address] | [place] [address] | [phone] | + + + + + POC [...] | | | POC | performed at [facility];[address] | | LABORATORY | | | | [address];[place] | | | | | | [address] | | | | + + + + + + + + | Specimen | + + | | + + + + + + + | Performing | Address | City/State/Zipcode | Phone Number | | Organization | | | | + + + + + | [facility] | [address] | [place] [address] | [phone] | + + + + + Basic [...] | | | | | performed at [facility];[address] | | | | | | [address];[place], [place] | | | | | | [address] | | | | + + + + + + + + | Specimen | + + | Blood | + + + + + + + | Performing | Address | City/State/Zipcode | Phone Number | | Organization | | | | + + + + + | [facility] | [address] | [place] [address] | [phone] | + + + + + Phosphorus (12/23/2019 4:04 AM PDT) + + + + + + | Component | Value | Ref Range | Performed | Pathologist | | | | | At | Signature | + + + + + + | Phosphorus | 4.6Comment: Testing | 2.3 - 4.8 mg/dL | [facility] | | | | performed at [facility];[address] | | LABORATORY | | | | [facility];[place], [place] | | | | | | [address] | | | | + + + + + + + + | Specimen | + + | Blood | + + + + + + + | Performing | Address | City/State/Zipcode | Phone Number | | Organization | | | | + + + + + | [facility] | [address] | [place] [address] | [phone] | + + + + + Magnesium (12/23/2019 4:04 AM PDT) + + + + + + | Component | Value | Ref Range | Performed | Pathologist | | | | | At | Signature | + + + + + + | Magnesium | 2.1Comment: Testing | 1.7 - 2.4 mg/dL | [facility] | | | | performed at [facility];[address] | | LABORATORY | | | | [address];[place] | | | | | | [address] | | | | + + + + + + + + | Specimen | + + | Blood | + + + + + + + | Performing | Address | City/State/Zipcode | Phone Number | | Organization | | | | + + + + + | [facility] | [address] | [place] [address] | [phone] | + + + + + CBC [...] LABORATORY | | | | performed at [facility];[address] | | | | | [address];[place], [place] | | | | | | [address] | | | | + + + + + + + + | Specimen | + + | Blood | + + + + + + + | Performing | Address | City/State/Zipcode | Phone Number | | Organization | | | | + + + + + | [facility] | [address] | [place] [address] | [phone] | + + + + + Hemoglobin (12/22/2019 9:37 PM PDT) + + + + + + | Component | Value | Ref Range | Performed | Pathologist | | | | | At | Signature | + + + + + + | Hemoglobin | 9.1 (L)Comment: Testing | 13.2 - 17.0 | [facility] | | | | performed at [facility];[address] | g/dL | LABORATORY | | | | [address];[place] | | | | | | [address] | | | | + + + + + + + + | Specimen | + + | Blood | + + + + + + + | Performing | Address | City/State/Zipcode | Phone Number | | Organization | | | | + + + + + | [facility] | [address] | [place] [address] | [phone] | + + + + + Hematocrit (12/22/2019 9:37 PM PDT) + + + + + + | Component | Value | Ref Range | Performed | Pathologist | | | | | At | Signature | + + + + + + | Hematocrit | 27.4 (L)Comment: Testing | 39.0 - 50.0 % | [facility] | | | | performed at [facility];[address] | | LABORATORY | | | | [address];[place], [place] | | | | | | [address] | | | | + + + + + + + + | Specimen | + + | Blood | + + + + + + + | Performing | Address | City/State/Zipcode | Phone Number | | Organization | | | | + + + + + | [facility] | [address] | [place] [address] | [phone] | + + + + + POC [...] | | | POC | performed at [facility];[address] | | LABORATORY | | | | [address];[place], [place] | | | | | | [address] | | | | + + + + + + + + | Specimen | + + | | + + + + + + + | Performing | Address | City/State/Zipcode | Phone Number | | Organization | | | | + + + + + | [facility] | [address] | [place] [address] | [phone] | + + + + + POC Glucose (12/22/2019 5:32 PM PDT) + + + + + + | Component | Value | Ref Range | Performed | Pathologist | | | | | At | Signature | + + + + + + | Glucose, | 153 (H)Comment: Testing | 65 - 99 mg/dL | [facility] | | | POC | performed at [facility];[address] | | LABORATORY | | | | [address];[place], [place] | | | | | | [address] | | | | + + + + + + + + | Specimen | + + | | + + + + + + + | Performing | Address | City/State/Zipcode | Phone Number | | Organization | | | | + + + + + | [facility] | [address] | [place] [address] | [phone] | + + + + + Red [...] | LABORATORY | | | | Blvd;[place] [address] | | | | + + + + + + + + | Specimen | + + | | + + + + + + + | Performing | Address | City/State/Zipcode | Phone Number | | Organization | | | | + + + + + | [facility] | [address] | [place] [address] | [phone] | + + + + + POC Glucose (12/22/2019 10:38 AM PDT) + + + + + + | Component | Value | Ref Range | Performed | Pathologist | | | | | At | Signature | + + + + + + | Glucose, | 161 (H)Comment: Testing | 65 - 99 mg/dL | [facility] | | | POC | performed at [facility];[address] | | LABORATORY | | | | [address];[place], [place] | | | | | | [address] | | | | + + + + + + + + | Specimen | + + | | + + + + + + + | Performing | Address | City/State/Zipcode | Phone Number | | Organization | | | | + + + + + | [facility] | [address] | [place] [address] | [phone] | + + + + + [place] [...] | | | POC | performed at [facility];888 | g/dL | LABORATORY | | | | [address];[place], [place] | | | | | | [address] | | | | + + + + + + + + | Specimen | + + | | + + + + + + + | Performing | Address | City/State/Zipcode | Phone Number | | Organization | | | | + + + + + | [facility] | [address] | [place] [address] | [phone] | + + + + + POC [...] | | | POC | performed at [facility];[address] | g/dL | LABORATORY | | | | [address];[place], [place] | | | | | | [address] | | | | + + + + + + + + | Specimen | + + | | + + + + + + + | Performing | Address | City/State/Zipcode | Phone Number | | Organization | | | | + + + + + | [facility] | [address] | [place] [address] | [phone] | + + + + + POC [...] | | | POC | performed at [facility];888 | g/dL | LABORATORY | | | | [address];[place], [place] | | | | | | [address] | | | | + + + + + + + + | Specimen | + + | | + + + + + + + | Performing | Address | City/State/Zipcode | Phone Number | | Organization | | | | + + + + + | [facility] | [address] | [place] [address] | [phone] | + + + + + POC [...] (L)Comment: Testing | 13.7 - 16.7 | [facility] | | | POC | performed at [facility];888 | g/dL | LABORATORY | | | | [address];[place], [place] | | | | | | [address] | | | | + + + + + + + + | Specimen | + + | | + + + + + + + | Performing | Address | City/State/Zipcode | Phone Number | | Organization | | | | + + + + + | [facility] | [address] | [place] [address] | [phone] | + + + + + Type [...] + + + | BB BAND | [id number] | | [facility] | | | | | | LABORATORY | | + + + + + + | UNIT # | [id number] | | [facility] | | | | [...] | | | RESULT | performed at [facility];[address] | | LABORATORY | | | | [address];[place], [place] | | | | | | [address] | | | | + + + + + + | UNIT # | [id number] | | [facility] | | | | [...] [facility] | [address] | [place] [address] | [phone] | + + + + + POC Glucose (12/22/2019 5:35 AM PDT) + + + + + + | Component | Value | Ref Range | Performed | Pathologist | | | | | At | Signature | + + + + + + | Glucose, | 155 (H)Comment: Testing | 65 - 99 mg/dL | [facility] | | | POC | performed at [facility];[address] | | LABORATORY | | | | [address];[place], [place] | | | | | | [address] | | | | + + + + + + + + | Specimen | + + | | + + + + + + + | Performing | Address | City/State/Zipcode | Phone Number | | Organization | | | | + + + + + | [facility] | [address] | [place] [address] | [phone] | + + + + + Protime [...] | | | | | performed at [facility];[address] | | | | | | [address];[place] | | | | | | [address] | | | | + + + + + + + + | Specimen | + + | Blood | + + + + + + + | Performing | Address | City/State/Zipcode | Phone Number | | Organization | | | | + + + + + | [facility] | [address] | [place] [address] | [phone] | + + + + + CBC [...] | | | Absolute | performed at [facility], [address] | LABORATORY | | | | [address], | | | | | | [place] [address] | | | | + + + + + + + + | Specimen | + + | Blood | + + + + + + + | Performing | Address | City/State/Zipcode | Phone Number | | Organization | | | | + + + + + | [facility] | [address] | [place] [address] | [phone] | + + + + + Magnesium (12/22/2019 5:26 AM PDT) + + + + + + | Component | Value | Ref Range | Performed | Pathologist | | | | | At | Signature | + + + + + + | Magnesium | 2.6 (H)Comment: Testing | 1.7 - 2.4 mg/dL | [facility] | | | | performed at [facility], [address] | LABORATORY | | | | [address], | | | | | | [place] [address] | | | | + + + + + + + + | Specimen | + + | Blood | + + + + + + + | Performing | Address | City/State/Zipcode | Phone Number | | Organization | | | | + + + + + | [facility] | [address] | [place] [address] | [phone] | + + + + + Basic [...] | | | | | performed at [facility], [address] | | | | | | [address], | | | | | | [place] [address] | | | | + + + + + + + + | Specimen | + + | Blood | + + + + + + + | Performing | Address | City/State/Zipcode | Phone Number | | Organization | | | | + + + + + | [facility] | [address] | [place] [address] | [phone] | + + + + + POC [...] | | | POC | performed at [facility];[address] | LAB[address]AT[address] | | | [address];[place], [place] | | | | | | [address] | | | | + + + + + + + + | Specimen | + + | | + + + + + + + | Performing | Address | City/State/Zipcode | Phone Number | | Organization | | | | + + + + + | [facility] | [address] | [place] [address] | [phone] | + + + + + POC Glucose (12/21/2019 9:11 PM PDT) + + + + + + | Component | Value | Ref Range | Performed | Pathologist | | | | | At | Signature | + + + + + + | Glucose, | 182 (H)Comment: Testing | 65 - 99 mg/dL | [facility] | | | POC | performed at [facility];[address] | | | | [address];[place] | | | | | | [id number] | | | | + + + + + + + + | Specimen | + + | | + + + + + + + | Performing | Address | City/State/Zipcode | Phone Number | | Organization | | | | + + + + + | [facility] | [address] | [place] [address] | [phone] | + + + + + documented [...] | | | | | | longer, [id number]-gia-icfxe use of | | | | | [...] | | | | | ineffective use [place] 10/325 if | | | | | [...] | | | | | | Starting [facility] 12/26/19 at 1637 | | | | [...] | | | | | | | [id number] Use NIGHT DOSE for | | | | | | | doses scheduled: HS, | | | | | | | Nighttime [id number] If the BG is | | | [...] | | | | | Minutes, ONCE, [facility] 12/26/19 at | | | | [...]
--- OUTSIDE RECORDS SUMMARY | ~2020-03-05 | XMS | Encounter Summary ---
Demographics + + + | Address | [address] | | | [place] [address] | + + + | Home Phone [...] [place] | | | | | [address] | | + + + + + | Deanna Lawson | ECON | Unknown | | + + + + + Care Team Providers + +------+ + | Care Hand Flatwork Finisher Name | Role | Phone | + [...] + + | 12/28/ | Surgery | [facility] | Lamont Hernandez MD | EGD | | 2020 | | [facility] | [address] | | | | | INTRA [address] | [place] | | | | | [address] [place] | [address] | | | | | [address] | [phone] | | | | | [phone] | | | +--------+---------+ + + + [...] was on board. No immediate indication for DENTURE CONTOUR WIRE SPECIALIST. Patient was also seen by physical therapy and occupational therapy and was recommended for discharging to [facility]. However patient will b e going to [facility] at this time. Patient also had [...] CVA tenderness, no spinal tenderness Disposition: [facility] Condition: Fair No discharge procedures [...] BUNCREARATIO 30 01/01/2020 PTH 72.57 (A) 04/01/2019 [id number] 25.2 (L) 12/27/2019 CALCIUM 8.6 01/01/2020 PHOS [...] been following up with ENEDINA mena in [place]. He has unrecovered acute kidney injury and a higher baseline creatinine. At this time there is no clinical uremia, refractory volume overload, refractory acidosis, refractory hyperkalemia and no urgent indication of starting DENTURE CONTOUR WIRE SPECIALIST. Neither is there an indication for diagnostic [...] Incentive spirometry. Transfuse Prn. No indication for DENTURE CONTOUR WIRE SPECIALIST for now. Await renal recovery. On discharge [...] was completed later after rounds. Dictation software, OrbFlex, was used which may contain error for [...] but not limited to potential need for DENTURE CONTOUR WIRE SPECIALIST . This is a patient with multiple [...] is waiting downstairs. Deanna Doe RN, CMSRN, [facility] Inpatient Wound Ostomy Care [phone] 01/01/2020 11:46 AM Chai, Savana Irving RN [...] BUNCREARATIO 25 12/31/2019 PTH 72.57 (A) 04/01/2019 [id number] 25.2 (L) 12/27/2019 CALCIUM 8.5 12/31/2019 PHOS [...] been following up with ENEDINA mena in [place]. He has unrecovered acute kidney injury and a higher baseline creatinine. At this time there is no clinical uremia, refractory volume overload, refractory acidosis, refractory hyperkalemia and no urgent indication of starting DENTURE CONTOUR WIRE SPECIALIST. Neither is there an indication for diagnostic [...] Incentive spirometry. Transfuse Prn. No indication for DENTURE CONTOUR WIRE SPECIALIST for now. Await renal recovery. I discussed [...] was completed later after rounds. Dictation software, OrbFlex, was used which may contain error for [...] but not limited to potential need for DENTURE CONTOUR WIRE SPECIALIST . This is a patient with multiple [...] injuries: see wound RN note for treatment. [facility] ed, continue wound care at swing bed, send with extra dressing supplies. *Metabolic bone disorder: elevated PTH and phosphorus. Treatment per housing management officer (see thei r note). Subjective No chest [...] who was admitted as a transfer from [facility] due t o a mechanical fall sustaining [...] placement and he was accepted by [facility] in [place], [place] for rehabilitation purposes. Hospital stay was [...] Facilty-Administered PRN Medications Ordered in [facility] Medication Dose Route Frequency Provider Last Rate Last Dose acetaminophen (TYLENOL) tablet 500 mg 500 mg Oral Once PRN aMco Wolf CRNA Or acetaminophen (TYLENOL) 160 mg/5 [...] but remains week, he is accepted at [facility] in [place] with discharge plans tomorrow for rehabilit ation if remains stable. Will continue PT/OT, wound care services and monitor progress. Acute Kidney Injury on Chronic Kidney Disease Stage 3: This was likely due to ATN precipit ated by dehydration & blood loss, Clinically stable and creatinine is down to 3.0 range, [facility] hrology service on board and Dr. [...] discharge plans to [facility] in [facility] tomorrow. DVT prophylaxis with SCD's only due to risks of bleeding. Discharge plans tomorrow to [facility] in [place], [place] for rehabi litation. Called his daughter Ms. Huerta and left a message with updated information at phone number [phone]. Jerry Chino MD 12/30/2019 turgill, DALILA Keys - 12/30/2019 12:35 PM PDTFormatting of this note might be different from the [facility] Service: Gastroenterology Consult Progress Note Hospital Day: LOS: 9 days SUBJECTIVE Patient Summary: This is an 89-year-old male with multiple medical problems and a his tory of hypertension, diabetes, CKD stage III who was transferred from [facility] t o a fall and he sustained [...] Infusions dextrose 10% pantoprazole 8 mg/hr (12/30/19 0955) PRN Medications acetaminophen OR acetaminophen OR acetaminophen, [...] physician, the nurse, the anesthesiologist and the sales support technician in the pre-procedure area in the [...] successful. Thermal coagulation with Gold probe 7 Irish x 5 pulses was successful with hemostasis. [...] ll with any questions. Florina Cantu PA-C [facility] Gastroenterology 12/30/2019 Associated attestation - Lamont Hernandez MD - 12/31/2019 2:17 PM [id number] male with GI bleeding due to duodenal ulcer with visible vessel. The ulcer and visible vessel were tr eated with injection and gold probe thermal coagulation. The patient was seen and examined by me personally. The case was discussed with the physician's account assistant and I agree with the assessment and p tim as outlined in the note. Continue PPI IV infusion for total of 72 hours and then when patient is discharged he must be on twice daily PPI for 8 weeks. Resume Eliquis in 1 week. Lamont Hernandez MD Gastroenterology staffAvaMarycarmen, [facility] - 12/30/2019 11:05 AM PDTFormatting of [...] status. Disposition: Plan to discharge tomorrow, to [facility], once medically stable and cleared by [...] BUNCREARATIO 23 12/30/2019 PTH 72.57 (A) 04/01/2019 [id number] 25.2 (L) 12/27/2019 CALCIUM 8.6 12/30/2019 PHOS [...] been following up with ENEDINA mena in [place]. That had improved with nonoliguric state but now seems to have leveled off at around 3 and this may be reflection of unrecovered acute kidney injury and a higher baseline creatinine. At this time there is no clinical uremia, refractory volume overload, refractory acidosis, refractory hyperkalemia and no urgent indication of starting DENTURE CONTOUR WIRE SPECIALIST. Neither is there an indication for diagnostic [...] Incentive spirometry. Transfuse Prn. No indication for DENTURE CONTOUR WIRE SPECIALIST for now. Await renal recovery. I discussed [...] was completed later after rounds. Dictation software, OrbFlex, was used which may contain error for [...] but not limited to potential need for DENTURE CONTOUR WIRE SPECIALIST . This is a patient with multiple [...] BUNCREARATIO 30 12/29/2019 PTH 72.57 (A) 04/01/2019 [id number] 25.2 (L) 12/27/2019 CALCIUM 8.7 12/29/2019 PHOS [...] been following up with ENEDINA mena in [place]. That seems to be improving with nonoliguric state and small reduction in creatinine. At this time there is no clinical uremia, refractory volume overload, refractory acidosis, refractory hyperkalemia and no urgent indication of starting DENTURE CONTOUR WIRE SPECIALIST. Neither is there an indication for diagnostic [...] Incentive spirometry. Transfuse Prn. No indication for DENTURE CONTOUR WIRE SPECIALIST for now. Await renal recovery. I discussed [...] was completed later after rounds. Dictation software, OrbFlex, was used which may contain error for [...] but not limited to potential need for DENTURE CONTOUR WIRE SPECIALIST . acetaminophen 1,000 mg Oral 3 times [...] who was admitted as a transfer from [facility] due t o a mechanical fall sustaining [...] placement and he was accepted by [facility] in [place], [place] for rehabilitation purposes. Hospita l stay [...] by [facility] in [place], [place] with discharge plans early next weeks [...] another 1 to 2 to SNF in [place], [place] if remains stable and improve d. Called his daughter Ms. Huerta and updated her about plans at phone number [phone]. Jerry Chino MD 12/29/2019 Norma Sarabia RN [...] BUNCREARATIO 28 12/28/2019 PTH 72.57 (A) 04/01/2019 [id number] 25.2 (L) 12/27/2019 CALCIUM 8.5 12/28/2019 PHOS [...] been following up with ENEDINA mena in [place]. That seems to be improving with nonoliguric state and small reduction in creatinine. At this time there is no clinical uremia, refractory volume overload, refractory acidosis, refractory hyperkalemia and no urgent indication of starting DENTURE CONTOUR WIRE SPECIALIST. Neither is there an indication for diagnostic [...] Incentive spirometry. Transfuse Prn. No indication for DENTURE CONTOUR WIRE SPECIALIST for now. Await renal recovery. I discussed [...] was completed later after rounds. Dictation software, OrbFlex, was used which may contain error for [...] but not limited to potential need for DENTURE CONTOUR WIRE SPECIALIST . acetaminophen 1,000 mg Oral 3 times [...] DALILA Peralta has created this entry using [employer] e and ZEB macros. The entry has been reviewed and [...] who was admitted as a transfer from [facility] due t o a mechanical fall sustaining [...] placement and he was accepted by [facility]ing bed [facility] in [place], [place] for rehabilitation purposes. Hospita l stay [...] Facilty-Administered PRN Medications Ordered in [facility] Medication Dose Route Frequency Provider Last Rate [...] making slow progress, he is accepted by [facility] in [place], [place] with discharge plans possib ly early [...] 1 to 2 to a SNF in [place], [place] when renal functions are st able and cleared by Nephrology services. Also called his daughter Ms. Huerta and updated her a bout plans at phone number [phone]. Jerry Chino MD 12/28/2019 hazal Robbins COTA [...] been following up with ENEDINA mena in [place]. That seems to be improving with nonoliguric state and small reduction in creatinine. At this time there is no clinical uremia, refractory volume overload, refractory acidosis, refractory hyperkalemia and no urgent indication of starting DENTURE CONTOUR WIRE SPECIALIST. Neither is there an indication for diagnostic [...] Incentive spirometry. Transfuse Prn. No indication for DENTURE CONTOUR WIRE SPECIALIST for now. Await renal recovery. I discussed [...] was completed later after rounds. Dictation software, OrbFlex, was used which may contain error for [...] but not limited to potential need for DENTURE CONTOUR WIRE SPECIALIST . acetaminophen 1,000 mg Oral 3 times [...] status. Disposition: Plan to discharge Monday, to [facility], once medically stable a nd cleared [...] Net -400 ml . Treatment plan: per housing management officer; slowly improving. *Blood pressure: labile; See VS [...] disorder: elevated PTH and phosphorus. Treatment per housing management officer (see thei r note). Subjective No chest [...] who was admitted as a transfer from [facility] due t o a mechanical fall sustaining [...] Facilty-Administered PRN Medications Ordered in [facility] Medication Dose Route Frequency Provider Last Rate [...] trength and mobility. He is accepted by [facility] in [place], [place] and discharge is delayed due to [...] to 3 days to a SNF in [place], [place] when renal functions a re stable [...] This case has been discussed with Dr. Harrison, RN and CM. Electronically signed by: ENEDINA [...] who was admitted as a transfer from [facility] due t o a mechanical fall sustaining [...] Facilty-Administered PRN Medications Ordered in [facility] Medication Dose Route Frequency Provider Last Rate [...] placement is recommended. 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 Huerta and the at phone number [phone] Code Status: Full Code Regino Greene MD [...] status. Disposition: Plan to discharge Monday, to [facility], once medically stable a nd cleared [...] lab follow-up and treatment per hospitalist and housing management officer. *Blood pressure: hypotensive; See VS for BP trending. 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 Huerta and the at phone number [phone] Code Status: Full Code Regino Greene MD [...] conversation with family members today. Inpatient occupational therapist rehab manager. Code Status: Full Code Regino Greene MD [...] Greene, RN and CM. Electronically signed by: ENEIDNA Ramos, 12/23/2019 12:27 PM Regino Montague MD [...] sodium chloride 0.9% 100 mL/hr at 12/22/19 9556 OBJECTIVE Vital Signs: Vitals with Comments 12/22/2019 [...] GAMMA NAIL; Surgeon: Melquiades Baez DO; Location: [facility] MAIN OR OTHER SURGICAL HISTORY CATARACT EXTRACTION [...] Electronically Signed by: Lamont Hernandez MD 12/29/2019 [facility] Portions of this chart may have been created with OrbFlex voice recognition software. Occasi onal wrong-word or sound-alike substitutions may have occurred due to the inherent castañeda itations of voice recognition software. Please read the chart carefully and recognize, using context, where these substitutions have occurred Julián Urbina MD - 12/21/2019 7:38 PM PDTFormatting of this note m ight be different from the original. [facility] Service: Hospitalist History and Physical Date of Admission: Dec 21 2019 [facility] Reason for Admission: Right comminuted [...] higher level of care to transfer to [facility] wit h orthopedic 89 years old gentleman fall at this morning mechanical fall tripped on the curb and result ed in right hip pain [facility] visited x-ray found to have a [...] and LFT Orthopedic on-call was consulted from [facility] and requested to transfer for higher level of care At [facility] with multiple comorbidities REVIEW OF SYSTEMS 12 [...] transfer lab WBC 5.9 hb10.2 hct 30.5 ykn275 potassium 5.1 Bun 85 cre 2.6 Co2-24 [...] as per stated reason Chronic A. fib MLE3DO4- VASC score is 6- Hold Eliquis for [...] Old records reviewed on EMR. Dictation software, OrbFlex, used which may contain error for similar sounding words even af ter review. Personal communication requested for any clarification. Disposition: inpatient Code Status: FULL CODE Primary Care Physician: MD Julián Nobles MD 12/21/2019 documented in thi s encounter Consult Notes Lamont Hernandez MD - 12/29/2019 10:26 AM PDT Gastroenterology Consultation: [facility] 12/29/2019 Andres Jones Ramirez 89 y.o. [id number] History of present illness: Gastroenterology consultation is requested for evaluation of GI bleeding with melena. This is an 89-year-old male with multiple medical problems and a history of hypertension, d iabetes, CKD stage III who was transferred from [facility] due to a fall and he sustain [...] GAMMA NAIL; Surgeon: Melquiades Baez DO; Location: [facility] MAIN OR OTHER SURGICAL HISTORY CATARACT EXTRACTION [...] file Gets together: Not on file Attends muslim service: Not on file Active member of [...] this chart may have been created with OrbFlex voice recognition software. Occasi onal wrong-word or sound-alike substitutions may have occurred due to the inherent castañeda itations of voice recognition software. Please read the chart carefully and recognize, using context, where these substitutions have occurred Hayley Peres MD - 12/25/2019 8:46 PM PDT Consulted by [facility] Problem List: Patient Active Problem List [...] III with baseline creatinine 1.7 admitted to [facility] on December 20 after a mechanical fall that led to right hip fracture. The patient was transferr ed from [facility] for surgery. The patient did have ORIF [...] Tristan Gage at the nephrology clinic in [place]. The patien t is poor historian and does not recall seeing a housing management officer in the past. He also not awar [...] Order(s): IP CONSULT TO WOUND OSTOMY NURSE [facility] Service: Wound Care Consult Note [...] Elizabeth MD - 12/24/2019 11:33 AM PDT [facility] Service: Physicial Medicine & Rehab Consultation note [...] curb and resulted in right hip pain [facility] visited x-ray found to have [...] diabetes, and cirrhosis He was transferred to [facility], and is now s/p ORIF [...] GAMMA NAIL; Surgeon: Melquiades Baez, ; Location: [facility] MAIN OR OTHER SURGICAL HISTORY CATARACT EXTRACTION [...] should consist SNF placement closer to home ([place]). Code Status: Full Code Wing Marie Reed MD 12/24/2019 Melquiades Gill, - 12/22/2019 7:50 AM PDTAssociated Order(s): PROVIDER TO PROVIDER CONSULT [facility] Orthopaedic and Sports Medicine Service: Orthopedic [...] hip f racture. He was transferred to [facility] for concerns with other comor bidities. He [...] surgery. He will be taken for a [facility] hip cephalo-medullary nail.The risks and benefits [...] might b e different from the original. [facility] FACILITY TRANSFER ORDERS Patient Name: Andres Guzmán [...] limb(s)): [x] OT Evaluation & Treat [] HOSPICE CLINICAL MANAGER Evaluation Treat Wound/Skin Care: [] Follow current recommendations of the wound team for treatment. [] Wound Vac management per nursing protocol. Labs/Imaging: [] PT/INR: Frequency per SNF provider Goal INR: [] Fingerstick glucose check before meals and bedtime and PRN [] Labs: Follow up: Melquiades Baez DO [address] [facility] [phone] In 2 weeks For post op care Barbara Gilman MD [address] [place] [phone] In 1 week I have advised this [...] Regino Greene MD, certify that post hospital [facility] care is medically necessa ry on a continuing basis for any of the conditions for which he/she received care during thi s hospitalization. Additional Orders/Instructions: Physician's signature: 01/01/2020 10:59 AM [facility] NURSING FACILITY USE ONLY: [] [...] HIGH Current Discharge Plan Anticipated Discharge Disposition: [facility] facility Expected DC Date: 12/31/2019 Barriers to Discharge: placement Steps Taken Toward Discharge: Attended morning rounds, called [facility] and provided upd ate of Pt Next Steps: d/c to [facility] Community Support Services Current Outpt/Agency/Support Groups: none Community Agency Name: none Other Resources: Discharge Transportation Transportation Needs: agency transportation Notes: Pt on course to discharge to [facility] tomorrow. Idalia ma with [facility] team and they are accepting Pt tomorrow if Pt is medically ready. Cm will follow for d/c needs that arise. Electronically signed: Ja Marcus RN 12/31/2019 3:54 PM lan of Andrez Perry PTA - 12/31/2019 2:04 PM PDT Physical Therapy Treatment Note Recommended discharge disposition: [facility] facility Post discharge physical therapy recommendation: Equipment [...] LTG Status continued at 12/30/2019 0805 LTG Shell Level supervised at 12/30/2019 0805 LTG Assistive Device none at 12/30/2019 0805 All Transfers Goal Most Recent Value LTG Status new at 12/30/2019804 LTG Shell Level minimum assist (75% patient effort) at 12/30/2019804 LTG Assistive Device 2 wheeled walker (FWW) at 12/30/2019804 Gait Goal Most Recent Value LTG Status new at 12/30/2019804 LTG Shell Level minimum assist (75% patient effort) at 12/30/2019804 LTG Assistive Device 2 wheeled walker (FWW) at 12/30/2019 08 LTG Distance (feet) 50ft at 12/30/2019 08 PT Time Calculation Individual Start Time: 1307 Individual Stop Time: 1320 Individual Total Time: 13 PT Total Treatment Time: 13 lan of [facility] - Liz Cabral RN - 12/31/2019 8:00 [...] concerns. Aware of plan for discharge to [facility] tomorrow and has no concerns regarding disc [...] Physical Therapy Treatment Note Recommended discharge disposition: [facility] facility Post discharge physical therapy recommendation: Equipment [...] Bed Mobility Sit to Supine, Level of Shell: moderate assist (50% patient effort) Safety Issues: decreased use of legs for bridging/pushing Impairments: strength decreased Transfers Chair-Bed, Level of Shell: moderate assist (50% patient effort) [id number], Assistive Device: gait belt Sit-Stand, Level of Shell: moderate assist (50% patient effort) Stand-Sit, Level of Shell: moderate assist (50% patient effort) [id number], Assistive Device: gait belt Safety Issues: balance decreased during turns, step length decreased Impairments: strength decreased Goals Reflects last filed data and may be from multiple contributors. All Bed Mobility Goal Most Recent Value LTG Status continued at 12/30/2019 0805 LTG Shell Level supervised at 12/30/2019 0805 LTG Assistive Device none at 12/30/2019 0805 All Transfers Goal Most Recent Value LTG Status new at 12/30/2019 0805 LTG Shell Level minimum assist (75% patient effort) at 12/30/2019 0805 LTG Assistive Device 2 wheeled walker (FWW) at 12/30/2019 0805 Gait Goal Most Recent Value LTG Status new at 12/30/2019 0805 LTG Shell Level minimum assist (75% patient effort) at [...] Bed in low position, gait belt available, information operator socks on. Problem: Skin Injury Risk Increased [...] Physical Therapy Re-Assessment Note Recommended discharge disposition: [facility] facility Post discharge physical therapy recommendation: ongoing low intensity therapy, will benefi t from structured setting Equipment Recommendations: (TBD) Barriers to community-based discharge Physical Impairment, Pain, and Fall risk Planned Interventions: balance training, bed mobility training, gait training, home exercis e program, manual therapy techniques, patient/family education, ROM (Range of Motion), stair training, strengthening, stretching, botswanan ball techniques, wheelchair management/propulsio n training Recommended [...] Documentation: sit to/from stand Sit-Stand, Level of Shell: moderate assist (50% patient effort) Stand-Sit, Level of Shell: moderate assist (50% patient effort) [id number], Assistive Device: other (see comments)(platform walker ) Maintain Weight Bearing Status: able to maintain weight bearing status Safety Issues: balance decreased during turns Impairments: pain, strength decreased, impaired balance Gait Gait Comments: ambulated with shuffled steps and decreased quita Level of Shell: moderate assist (50% patient effort) Assistive Device: [...] LTG Status continued at 12/30/2019 08 LTG Shell Level supervised at 12/30/2019 08 LTG Assistive Device none at 12/30/2019 0805 All Transfers Goal Most Recent Value LTG Status new at 12/30/2019 08 LTG Shell Level minimum assist (75% patient effort) at 12/30/2019 08 LTG Assistive Device 2 wheeled walker (FWW) at 12/30/2019 0805 Gait Goal Most Recent Value LTG Status new at 12/30/2019804 LTG Shell Level minimum assist (75% patient effort) at [...] RN at 05/2020 6:04 PM [facility] RN - 12/29/2019 1:37 [...] Physical Therapy Treatment Note Recommended discharge disposition: [facility] facility Post discharge physical therapy recommendation: Equipment [...] Bed Mobility Supine to Sit, Level of Shell: moderate assist (50% patient effort) Sit to Supine, Level of Shell: moderate assist (50% patient effort) Safety Issues: decreased use of legs for bridging/pushing Impairments: strength decreased Transfers Sit-Stand, Level of Shell: moderate assist (50% patient effort) Stand-Sit, Level of Shell: moderate assist (50% patient effort) Alr-Cfdai-Guz, Assistive Device: other (see comments)(UP walker) Safety Issues: balance decreased during turns, step length decreased Impairments: strength decreased Gait Level of Shell: moderate assist (50% patient effort) Assistive Device: [...] LTG Status new at 12/23/2019 1600 LTG Shell Level supervised at 12/23/2019 1600 LTG Assistive Device none at 12/23/2019 1600 All Transfers Goal Most Recent Value LTG Status new at 12/23/2019 1600 LTG Shell Level modified independent at 12/23/2019 1600 LTG Assistive Device 2 wheeled walker (FWW) at 12/23/2019 1600 Gait Goal Most Recent Value LTG Status new at 12/23/2019 1600 LTG Shell Level stand by assist at 12/23/2019 1600 [...] Bed Mobility Supine to Sit, Level of Shell: moderate assist (50% patient effort) Safety Issues: decreased use of legs for bridging/pushing Impairments: strength decreased Transfers Sit-Stand, Level of Shell: moderate assist (50% patient effort) Stand-Sit, Level of Shell: moderate assist (50% patient effort) Htf-Lojuq-Nur, Assistive Device: other (see comments)(UP walker) Safety Issues: balance decreased during turns, step length decreased Impairments: strength decreased Exercises Bed exercises: ankle pumps, quad sets, heel slides, hip abduction/adduction, glut sets Goals Reflects last filed data and may be from multiple contributors. All Bed Mobility Goal Most Recent Value LTG Status new at 12/23/2019 1600 LTG Shell Level supervised at 12/23/2019 1600 LTG Assistive Device none at 12/23/2019 1600 All Transfers Goal Most Recent Value LTG Status new at 12/23/2019 1600 LTG Shell Level modified independent at 12/23/2019 1600 LTG Assistive Device 2 wheeled walker (FWW) at 12/23/2019 1600 Gait Goal Most Recent Value LTG Status new at 12/23/2019 1600 LTG Shell Level stand by assist at 12/23/2019 1600 [...] handled ghada e horn, long handled sponge, switch operator, sock aide Barriers to community-based discharge: Level of assistance for ADLs/Mobility and Fall risk Recommended Frequency: 3 times/wk for 10 days with reassessment due by 01/03/20 Summary: pt supine in bed upon [employer] arrival. Agreeable to participate in OT session [...] x1, rest break inbetween set d/t fatigue. [place] for proper tech during ex able to continue seq uence intitially however would require cueing/assist later on in reps. Goals Reflects last filed data and may be from multiple contributors. LB Dressing Goal Most Recent Value LTG Status new at 12/24/2019 0953 LTG Shell Level moderate assist (50% patient effort), verbal cues required at 12/23 0953 LTG Adaptive Equipment switch operator, shoe horn, long handled, sock-aid [AE as needed] at 2019 0953 Toilet Transfer Goal Most Recent Value LTG Status new at 12/24/2019 0953 LTG Shell Level minimum assist (75% patient effort), verbal [...] Bed Mobility Supine to Sit, Level of Shell: moderate assist (50% patient effort) Sit to Supine, Level of Shell: moderate assist (50% patient effort) Safety Issues: decreased use of legs for bridging/pushing Impairments: strength decreased Transfers Sit-Stand, Level of Shell: moderate assist (50% patient effort) Stand-Sit, Level of Shell: moderate assist (50% patient effort) Lhn-Cfuxp-Krx, Assistive Device: other (see comments)(Up walker) Safety Issues: balance decreased during turns, step length decreased Impairments: strength decreased Gait Level of Shell: moderate assist (50% patient effort) Assistive Device: [...] LTG Status new at 12/23/2019 1600 LTG Shell Level supervised at 12/23/2019 1600 LTG Assistive Device none at 12/23/2019 1600 All Transfers Goal Most Recent Value LTG Status new at 12/23/2019 1600 LTG Shell Level modified independent at 12/23/2019 1600 LTG Assistive Device 2 wheeled walker (FWW) at 12/23/2019 1600 Gait Goal Most Recent Value LTG Status new at 12/23/2019 1600 LTG Shell Level stand by assist at 12/23/2019 1600 [...] Bed Mobility Supine to Sit, Level of Shell: moderate assist (50% patient effort) Safety Issues: decreased use of legs for bridging/pushing Impairments: strength decreased Transfers Sit-Stand, Level of Shell: moderate assist (50% patient effort) Stand-Sit, Level of Shell: moderate assist (50% patient effort) Pyn-Vijla-Sav, Assistive Device: other (see comments)(Up walker) Safety Issues: balance decreased during turns, step length decreased Impairments: strength decreased Gait Level of Shell: moderate assist (50% patient effort) Assistive Device: [...] LTG Status new at 12/23/2019 1600 LTG Shell Level supervised at 12/23/2019 1600 LTG Assistive Device none at 12/23/2019 1600 All Transfers Goal Most Recent Value LTG Status new at 12/23/2019 1600 LTG Shell Level modified independent at 12/23/2019 1600 LTG Assistive Device 2 wheeled walker (FWW) at 12/23/2019 1600 Gait Goal Most Recent Value LTG Status new at 12/23/2019 1600 LTG Shell Level stand by assist at 12/23/2019 1600 [...] HIGH Current Discharge Plan Anticipated Discharge Disposition: [facility] facility Expected DC Date: 12/30/2019 Barriers to Discharge: placement Steps Taken Toward Discharge: Attended morning rounds Next Steps: d/c to [facility] Swing [facility] Community Support Services Current Outpt/Agency/Support Groups: none Community Agency Name: none Other Resources: Discharge Transportation Transportation Needs: agency transportation Notes: Pt not medically ready for discharge. Cm called Idalia CM at [facility] and updat ed her on Pt progress. Pt may be ready for d/c Monday. Cm will continue to follow for placem ent needs. Electronically signed: Ja Marcus RN 12/26/2019 11:46 AM lan of [facility] t - 12/26/2019 10:00 AM PDT Problem: [...] Bed Mobility Sit to Supine, Level of Shell: maximal assist (25% patient effort), verbal cues requ ired Safety Issues: decreased use of legs for bridging/pushing, decreased use of arms for pushin g/pulling Impairments: strength decreased, pain, impaired balance Transfers Sit-Stand, Level of Shell: moderate assist (50% patient effort), verbal cues require d Stand-Sit, Level of Shell: moderate assist (50% patient effort), verbal cues require d Mdy-Yufzg-Tqr, Assistive Device: 2 wheeled walker (FWW), gait belt Safety Issues: sequencing ability decreased, balance decreased during turns Gait Level of Shell: moderate assist (50% patient effort) Assistive Device: [...] LTG Status new at 12/23/2019 1600 LTG Shell Level supervised at 12/23/2019 1600 LTG Assistive Device none at 12/23/2019 1600 All Transfers Goal Most Recent Value LTG Status new at 12/23/2019 1600 LTG Shell Level modified independent at 12/23/2019 1600 LTG Assistive Device 2 wheeled walker (FWW) at 12/23/2019 1600 Gait Goal Most Recent Value LTG Status new at 12/23/2019 1600 LTG Shell Level stand by assist at 12/23/2019 1600 [...] HIGH Current Discharge Plan Anticipated Discharge Disposition: [facility] facility Expected DC Date: 12/27/2019 Barriers to Discharge: placement Steps Taken Toward Discharge: Attended rounds Next Steps: d/c to [facility] Community Support Services Current Outpt/Agency/Support Groups: none Community Agency Name: none Other Resources: Discharge Transportation Transportation Needs: agency transportation Notes: Pt not medically ready for discharge. Cm received call from [facility] from [facility]. Pt has been accepted but [...] (Range of Motion), stair training, strengthening, stretching, botswanan ball techniques, w heelchair management/propulsion training Recommended [...] HOB elevated Supine to Sit, Level of Shell: moderate assist (50% patient effort), verbal cues req uired Safety Issues: decreased use of legs for bridging/pushing, decreased use of arms for pushin g/pulling Impairments: strength decreased, pain, impaired balance Transfers Additional Documentation: sit to/from stand Chair-Bed, Level of Shell: moderate assist (50% patient effort), verbal cues require d Ulz-Qchwn-Qwk, Assistive Device: 2 wheeled walker (FWW) Sit-Stand, Level of Shell: moderate assist (50% patient effort), verbal cues require d Stand-Sit, Level of Shell: moderate assist (50% patient effort), verbal cues require d Guf-Akufd-Txt, Assistive Device: 2 wheeled walker (FWW), gait belt Maintain Weight Bearing Status: able to maintain weight bearing status Safety Issues: sequencing ability decreased, balance decreased during turns Impairments: impaired balance, coordination impaired, pain, decreased flexibility Gait Gait Comments: 4 steps to chair Level of Shell: moderate assist (50% patient effort) Assistive Device: [...] LTG Status new at 12/23/2019 1600 LTG Shell Level supervised at 12/23/2019 1600 LTG Assistive Device none at 12/23/2019 1600 All Transfers Goal Most Recent Value LTG Status new at 12/23/2019 1600 LTG Shell Level modified independent at 12/23/2019 1600 LTG Assistive Device 2 wheeled walker (FWW) at 12/23/2019 1600 Gait Goal Most Recent Value LTG Status new at 12/23/2019 1600 LTG Shell Level stand by assist at 12/23/2019 1600 [...] long handled shoe horn, long handled sponge, switch operator, sock aide(BSC (?)) Barriers to community-based discharge [...] seated in the recliner Grooming, Level of Shell: supervised Assistive Device: none Grooming Assess/Train, Position: sitting Bed Mobility Additional Documentation: supine to/from sit Assistive Device: HOB elevated, bed rails Sit to Supine, Level of Shell: maximal assist (25% patient effort), verbal cues [...] stand, bed to/from chair Chair-Bed, Level of Shell: moderate assist (50% patient effort), verbal cues require d Ejb-Jtsmu-Ngy, Assistive Device: gait belt Sit-Stand, Level of Shell: moderate assist (50% patient effort), verbal cues require d Stand-Sit, Level of Shell: moderate assist (50% patient effort), verbal cues require d Sbc-Sxxog-Yiv, Assistive Device: 2 wheeled walker (FWW), gait [...] LTG Status new at 12/24/2019 0953 LTG Shell Level moderate assist (50% patient effort), verbal cues required at 12/23 0953 LTG Adaptive Equipment switch operator, shoe horn, long handled, sock-aid [AE as needed] at 2019 0953 Toilet Transfer Goal Most Recent Value LTG Status new at 12/24/2019 0953 LTG Shell Level minimum assist (75% patient effort), verbal [...] HOB elevated Supine to Sit, Level of Shell: moderate assist (50% patient effort), verbal cues req uired Safety Issues: decreased use of arms for pushing/pulling, decreased use of legs for bridgin g/pushing Impairments: decreased flexibility, pain, impaired balance Transfers Additional Documentation: sit to/from stand Sit-Stand, Level of Shell: minimal assist (75% patient effort) Stand-Sit, Level of Shell: minimal assist (75% patient effort) Cmd-Yxmuh-Qem, Assistive Device: 2 wheeled walker (FWW) Maintain Weight Bearing Status: able to maintain weight bearing status Safety Issues: sequencing ability decreased Impairments: decreased flexibility, impaired balance, pain Gait Gait Comments: side stepping to recliner Level of Shell: minimal assist (75% patient effort) Assistive Device: [...] LTG Status new at 12/23/2019 1600 LTG Shell Level supervised at 12/23/2019 1600 LTG Assistive Device none at 12/23/2019 1600 All Transfers Goal Most Recent Value LTG Status new at 12/23/2019 1600 LTG Shell Level modified independent at 12/23/2019 1600 LTG Assistive Device 2 wheeled walker (FWW) at 12/23/2019 1600 Gait Goal Most Recent Value LTG Status new at 12/23/2019 1600 LTG Shell Level stand by assist at 12/23/2019 1600 [...] discharge planning concerns Services Anticipated at Discharge: [facility] facility Equipment Used at Home: cane, straight, single point, 2 wheeled walker (FWW) Equipment Needed after Discharge: walker, standard Durable Medical Equipment Provider: Pharmacy/Medication Needs: other (see comments)([facility] in [place], [place]) Transportation Needs: agency transportation Initial Plan Anticipated Discharge Disposition: [facility] facility Expected DC Date: other (see comments)(SNF [...] stated that he would like to go [facility] Swi ng bed if needed before going home. Cm called [facility] and received contact [facility] - Idalia Garduno [phone]. Cm sent referral to [facility]. Pt stated that Deanna (daughter) edgardo harmon [...] (Range of Motion), stair training, strengthening, stretching, botswanan ball techniques, wheelchair management/propulsio n training Recommended [...] HOB elevated Supine to Sit, Level of Shell: moderate assist (50% patient effort) Sit to Supine, Level of Shell: maximal assist (25% patient effort) Safety Issues: decreased use of arms for pushing/pulling, decreased use of legs for bridgin g/pushing Impairments: decreased flexibility, impaired balance, pain Transfers Additional Documentation: sit to/from stand Sit-Stand, Level of Shell: minimal assist (75% patient effort) Stand-Sit, Level of Shell: minimal assist (75% patient effort) Mst-Reswz-Nuq, Assistive Device: 2 wheeled walker (FWW) Maintain [...] LTG Status new at 12/23/2019 1600 LTG Shell Level supervised at 12/23/2019 1600 LTG Assistive Device none at 12/23/2019 1600 All Transfers Goal Most Recent Value LTG Status new at 12/23/2019 1600 LTG Shell Level modified independent at 12/23/2019 1600 LTG Assistive Device 2 wheeled walker (FWW) at 12/23/2019 1600 Gait Goal Most Recent Value LTG Status new at 12/23/2019 1600 LTG Shell Level stand by assist at 12/23/2019 1600 [...] Melquiades Baez DO - 12/22/2019 10:34 AM [facility] Orthop aedic [facility] Sports Medicine Service: Orthopaedic [...] by: Melquiades Baez DO, 12/22/2019 10:35 AM [facility] lan of Care - Cru [...] 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 EKG and Ches [...] day shift and every two hours on shift production associate to monitor and medicate appropriately. 2. Staff [...] | | | | | | [facility] | | | | | | [place] [address] | | | | | | [phone] | | | | | | | | +--------+---------+ + + + | 04/21/ | Office | Nephrology | Isiah Jade MD | | 2019 | Visit | | [address] [facility] | | | | | | [address] | | | | | | [address] | | | | | | | | +--------+---------+ + + + | 05/07/ | Office | Cardiology | Charlee Oswald | | | 2019 | Visit | | [address] | | | | | | [address] | | | | | | [place] [address] | | | | | | [phone] | | | | | | | [...] | | | POC | performed at [facility];[address] | | LABORATORY | | | | [address];[place], [place] | | | | | | [address] | | | | + + + + + + + + | Specimen | + + | | + + + + + + + | Performing | Address | City/State/Zipcode | Phone Number | | Organization | | | | + + + + + | [facility] | [address] | [place] [address] | [phone] | + + + + + POC Glucose (01/01/2020 6:29 AM PDT) + + + + + + | Component | Value | Ref Range | Performed | Pathologist | | | | | At | Signature | + + + + + + | Glucose, | 143 (H)Comment: Testing | 65 - 99 mg/dL | [facility] | | | POC | performed at [facility];[address] | | LABORATORY | | | | [address];[place] | | | | | | [address] | | | | + + + + + + + + | Specimen | + + | | + + + + + + + | Performing | Address | City/State/Zipcode | Phone Number | | Organization | | | | + + + + + | [facility] | [address] | [place] [address] | [phone] | + + + + + Basic [...] | | | | | performed at [facility];[address] | | | | | | [facility];[place], [place] | | | | | | [address] | | | | + + + + + + + + | Specimen | + + | Blood | + + + + + + + | Performing | Address | City/State/Zipcode | Phone Number | | Organization | | | | + + + + + | [facility] | [address] | [place] [address] | [phone] | + + + + + CBC [...] | | | Absolute | performed at [facility];[address] | [address]L | LABORATORY | | | | [address];[place], [place] | | | | | | [address] | | | | + + + + + + + + | Specimen | + + | Blood | + + + + + + + | Performing | Address | City/State/Zipcode | Phone Number | | Organization | | | | + + + + + | [facility] | [address] | [place] [address] | [phone] | + + + + + POC Glucose (12/31/2019 9:02 PM PDT) + + + + + + | Component | Value | Ref Range | Performed | Pathologist | | | | | At | Signature | + + + + + + | Glucose, | 137 (H)Comment: Testing | 65 - 99 mg/dL | [facility] | | | POC | performed at [facility];[address] | | LABORATORY | | | | [address];[place] | | | | | | [address] | | | | + + + + + + + + | Specimen | + + | | + + + + + + + | Performing | Address | City/State/Zipcode | Phone Number | | Organization | | | | + + + + + | [facility] | [address] | [place] [address] | [phone] | + + + + + POC Glucose (12/31/2019 5:31 PM PDT) + + + + + + | Component | Value | Ref Range | Performed | Pathologist | | | | | At | Signature | + + + + + + | Glucose, | 196 (H)Comment: Testing | 65 - 99 mg/dL | [facility] | | | POC | performed at [facility];[address] | | LABORATORY | | | | [address];[place] | | | | | | [address] | | | | + + + + + + + + | Specimen | + + | | + + + + + + + | Performing | Address | City/State/Zipcode | Phone Number | | Organization | | | | + + + + + | [facility] | [address] | [place] [address] | [phone] | + + + + + POC [...] | | | POC | performed at [facility];[address] | | LABORATORY | | | | [address];[place], [place] | | | | | | [address] | | | | + + + + + + + + | Specimen | + + | | + + + + + + + | Performing | Address | City/State/Zipcode | Phone Number | | Organization | | | | + + + + + | [facility] | [address] | [place] [address] | [phone] | + + + + + POC [...] | | | POC | performed at [facility];[address] | | LABORATORY | | | | [address];[place] | | | | | | [address] | | | | + + + + + + + + | Specimen | + + | | + + + + + + + | Performing | Address | City/State/Zipcode | Phone Number | | Organization | | | | + + + + + | [facility] | [address] | [place] [address] | [phone] | + + + + + Basic [...] | 8.5 | 8.5 - 10.5 | [facility] | | | | | mg/dL | LABORATORY | | + + + + + + | Estimated | 18 (L)Comment: GFR <60: | >60 | [facility] | | | GFR | CHRONIC [...] [facility], [address] | | | | | | [facility], | | | | | | [place] [address] | | | | + + + + + + + + | Specimen | + + | Blood | + + + + + + + | Performing | Address | City/State/Zipcode | Phone Number | | Organization | | | | + + + + + | [facility] | [address] | [place] [address] | [phone] | + + + + + CBC [...] | Absolute | performed at [facility], [address] | K/uL | LABORATORY | | | | [address], | | | | | | [place] [address] | | | | + + + + + + + + | Specimen | + + | Blood | + + + + + + + | Performing | Address | City/State/Zipcode | Phone Number | | Organization | | | | + + + + + | [facility] | [address] | [place] [address] | [phone] | + + + + + POC Glucose (12/30/2019 8:55 PM PDT) + + + + + + | Component | Value | Ref Range | Performed | Pathologist | | | | | At | Signature | + + + + + + | Glucose, | 192 (H)Comment: Testing | 65 - 99 mg/dL | [facility] | | | POC | performed at [facility];[address] | | LABORATORY | | | | [address];[place] | | | | | | [address] | | | | + + + + + + + + | Specimen | + + | | + + + + + + + | Performing | Address | City/State/Zipcode | Phone Number | | Organization | | | | + + + + + | [facility] | [address] | [place] [address] | [phone] | + + + + + POC Glucose (12/30/2019 4:11 PM PDT) + + + + + + | Component | Value | Ref Range | Performed | Pathologist | | | | | At | Signature | + + + + + + | Glucose, | 130 (H)Comment: Testing | 65 - 99 mg/dL | [facility] | | | POC | performed at [facility];[address] | | LABORATORY | | | | [address];[place], [place] | | | | | | [address] | | | | + + + + + + + + | Specimen | + + | | + + + + + + + | Performing | Address | City/State/Zipcode | Phone Number | | Organization | | | | + + + + + | [facility] | [address] | [place] [address] | [phone] | + + + + + POC [...] | | | POC | performed at [facility];[address] | | LABORATORY | | | | [address];[place], [place] | | | | | | [address] | | | | + + + + + + + + | Specimen | + + | | + + + + + + + | Performing | Address | City/State/Zipcode | Phone Number | | Organization | | | | + + + + + | [facility] | [address] | [place] [address] | [phone] | + + + + + Basic [...] 20 (L)Comment: GFR <60: | >60 | [facility] | | | GFR | CHRONIC [...] | | | | | performed at [facility];[address] | | | | | | [facility];[place], [place] | | | | | | [address] | | | | + + + + + + + + | Specimen | + + | Blood | + + + + + + + | Performing | Address | City/State/Zipcode | Phone Number | | Organization | | | | + + + + + | [facility] | [address] | [place] [address] | [phone] | + + + + + POC Glucose (12/30/2019 6:04 AM PDT) + + + + + + | Component | Value | Ref Range | Performed | Pathologist | | | | | At | Signature | + + + + + + | Glucose, | 103 (H)Comment: Testing | 65 - 99 mg/dL | [facility] | | | POC | performed at [facility];[address] | | LABORATORY | | | | [address];[place] | | | | | | [address] | | | | + + + + + + + + | Specimen | + + | | + + + + + + + | Performing | Address | City/State/Zipcode | Phone Number | | Organization | | | | + + + + + | [facility] | [address] | [place] [address] | [phone] | + + + + + CBC [...] | | | Absolute | performed at [facility];[address] | K[address] | LABORATORY | | | | [address];[place], [place] | | | | | | [address] | | | | + + + + + + + + | Specimen | + + | Blood | + + + + + + + | Performing | Address | City/State/Zipcode | Phone Number | | Organization | | | | + + + + + | [facility] | [address] | [place] [address] | [phone] | + + + + + POC Glucose (12/29/2019 11:56 PM PDT) + + + + + + | Component | Value | Ref Range | Performed | Pathologist | | | | | At | Signature | + + + + + + | Glucose, | 109 (H)Comment: Testing | 65 - 99 mg/dL | [facility] | | | POC | performed at [facility];[address] | | LABORATORY | | | | [address];[place] | | | | | | [address] | | | | + + + + + + + + | Specimen | + + | | + + + + + + + | Performing | Address | City/State/Zipcode | Phone Number | | Organization | | | | + + + + + | [facility] | [address] | [place] [address] | [phone] | + + + + + Hemoglobin [...] [facility] | | | | performed at [facility];[address] | | LABORATORY | | | | [address];[place], [place] | | | | | | [address] | | | | + + + + + + + + | Specimen | + + | Blood | + + + + + + + | Performing | Address | City/State/Zipcode | Phone Number | | Organization | | | | + + + + + | [facility] | [address] | [place] [address] | [phone] | + + + + + POC Glucose (12/29/2019 6:06 PM PDT) + + + + + + | Component | Value | Ref Range | Performed | Pathologist | | | | | At | Signature | + + + + + + | Glucose, | 128 (H)Comment: Testing | 65 - 99 mg/dL | [facility] | | | POC | performed at [facility];[address] | | LABORATORY | | | | [address];[place] | | | | | | [address] | | | | + + + + + + + + | Specimen | + + | | + + + + + + + | Performing | Address | City/State/Zipcode | Phone Number | | Organization | | | | + + + + + | [facility] | [address] | [place] [address] | [phone] | + + + + + Hemoglobin [...] [facility] | | | | performed at [facility];[address] | | LABORATORY | | | | [address];[place] | | | | | | [address] | | | | + + + + + + + + | Specimen | + + | Blood | + + + + + + + | Performing | Address | City/State/Zipcode | Phone Number | | Organization | | | | + + + + + | [facility] | [address] | [place] [address] | [phone] | + + + + + POC Glucose (12/29/2019 11:43 AM PDT) + + + + + + | Component | Value | Ref Range | Performed | Pathologist | | | | | At | Signature | + + + + + + | Glucose, | 191 (H)Comment: Testing | 65 - 99 mg/dL | [facility] | | | POC | performed at [facility];[address] | | LABORATORY | | | | [address];[place] | | | | | | [address] | | | | + + + + + + + + | Specimen | + + | | + + + + + + + | Performing | Address | City/State/Zipcode | Phone Number | | Organization | | | | + + + + + | [facility] | [address] | [place] [address] | [phone] | + + + + + POC Glucose (12/29/2019 11:06 AM PDT) + + + + + + | Component | Value | Ref Range | Performed | Pathologist | | | | | At | Signature | + + + + + + | Glucose, | 205 (H)Comment: Testing | 65 - 99 mg/dL | [facility] | | | POC | performed at [facility];[address] | | LABORATORY | | | | [address];[place], [place] | | | | | | [address] | | | | + + + + + + + + | Specimen | + + | | + + + + + + + | Performing | Address | City/State/Zipcode | Phone Number | | Organization | | | | + + + + + | [facility] | [address] | [place] [address] | [phone] | + + + + + Surgical [...] | | technical component was performed by [facility], [address] [place] [address] | | [place] [address] (Entry Specialists: Padmini Sellers MD; CLIA# | | | [id number]). Professional interpretation was performed [facility] | | | [facility], | | | [place] [address] (Entry Specialists: Oscar Maynard M.D.; CLIA#: | | | [id number]). Diagnostician: Padmini Sellers | | | MDPathologistElectronically [...] | |The technical component was performed by [facility], [address] [place] [address] (Entry Specialists: Padmini Sellers MD; CLIA# [id number]). Professional interpretation was performed by | | |[facility], [address] [address] (Entry Specialists: Oscar Maynard M.D.; CLIA#: [id number]). | | | | | |Diagnostician: Padmini [...] Performed At | + + + | [facility] | [facility] | | [facility] | PROVATION | | CenterGastroenterology | | | Patient Name: Andres Guzmán | | | Procedure Date: 12/29/2019 8:36 AMMRN: [id number] | | | of : 1930 | [...] the anesthesiologist and the | | | sales support technician in the pre-procedure area in the [...] | | | with Gold probe 7 Irish x 5 pulses was successful with | [...] + + | Performing | Address | City/State/Rustcode | Phone Number | | Organization | [...] [facility] | | | | performed at [facility];[address] | | LABORATORY | | | | [address];[place], [place] | | | | | | [address] | | | | + + + + + + + + | Specimen | + + | Blood | + + + + + + + | Performing | Address | City/State/Zipcode | Phone Number | | Organization | | | | + + + + + | [facility] | [address] | [place] [address] | [phone] | + + + + + POC Glucose (12/29/2019 6:06 AM PDT) + + + + + + | Component | Value | Ref Range | Performed | Pathologist | | | | | At | Signature | + + + + + + | Glucose, | 146 (H)Comment: Testing | 65 - 99 mg/dL | [facility] | | | POC | performed at [facility];[address] | | LABORATORY | | | | [address];[place] | | | | | | [address] | | | | + + + + + + + + | Specimen | + + | | + + + + + + + | Performing | Address | City/State/Zipcode | Phone Number | | Organization | | | | + + + + + | [facility] | [address] | [place] [address] | [phone] | + + + + + CBC [...] | | | Absolute | performed at [facility];[address] | K/uL | LABORATORY | | | | [address];[place] | | | | | | [address] | | | | + + + + + + + + | Specimen | + + | Blood | + + + + + + + | Performing | Address | City/State/Zipcode | Phone Number | | Organization | | | | + + + + + | [facility] | [address] | [place] [address] | [phone] | + + + + + Shine [...] | | | | | performed at [facility] | | | | | | [address];[place], [place] | | | | | | [address] | | | | + + + + + + + + | Specimen | + + | Blood | + + + + + + + | Performing | Address | City/State/Zipcode | Phone Number | | Organization | | | | + + + + + | [facility] | [address] | [place] [address] | [phone] | + + + + + Basic [...] 20 (L)Comment: GFR <60: | >60 | [facility] | | | GFR | CHRONIC [...] | | | | | | MDRD IDMT traceable | | | | | | equation.Testing | | | | | | performed at [facility];[address] | | | | | | [facility];[place], [place] | | | | | | [address] | | | | + + + + + + + + | Specimen | + + | Blood | + + + + + + + | Performing | Address | City/State/Zipcode | Phone Number | | Organization | | | | + + + + + | [facility] | [address] | [place] [address] | [phone] | + + + + + POC Glucose (12/28/2019 11:27 PM PDT) + + + + + + | Component | Value | Ref Range | Performed | Pathologist | | | | | At | Signature | + + + + + + | Glucose, | 192 (H)Comment: Testing | 65 - 99 mg/dL | [facility] | | | POC | performed at [facility];[address] | | LABORATORY | | | | [address];[place] | | | | | | [address] | | | | + + + + + + + + | Specimen | + + | | + + + + + + + | Performing | Address | City/State/Zipcode | Phone Number | | Organization | | | | + + + + + | [facility] | [address] | [place] [address] | [phone] | + + + + + Hemoglobin [...] [facility] | | | | performed at [facility];[address] | | LABORATORY | | | | [address];[place] | | | | | | [address] | | | | + + + + + + + + | Specimen | + + | Blood | + + + + + + + | Performing | Address | City/State/Zipcode | Phone Number | | Organization | | | | + + + + + | [facility] | [address] | [place] [address] | [phone] | + + + + + POC [...] | | | POC | performed at [facility];[address] | | LABORATORY | | | | [address];[place], [place] | | | | | | [address] | | | | + + + + + + + + | Specimen | + + | | + + + + + + + | Performing | Address | City/State/Zipcode | Phone Number | | Organization | | | | + + + + + | [facility] | [address] | [place] [address] | [phone] | + + + + + Fecal [...] [address];[place] [address] | | | | + + + + + + + + | Specimen | + + | Stool - Stool | | specimen (specimen) | + + + + + + + | Performing | Address | City/State/Zipcode | Phone Number | | Organization | | | | + + + + + | [facility] | [address] | [place] [address] | [phone] | + + + + + POC [...] | | | POC | performed at [facility];[address] | | LABORATORY | | | | [address];[place] | | | | | | [address] | | | | + + + + + + + + | Specimen | + + | | + + + + + + + | Performing | Address | City/State/Zipcode | Phone Number | | Organization | | | | + + + + + | [facility] | [address] | [place] [address] | [phone] | + + + + + Hemoglobin [...] [facility] | | | | performed at [facility];[address] | | LABORATORY | | | | [address];[place] | | | | | | [address] | | | | + + + + + + + + | Specimen | + + | Blood | + + + + + + + | Performing | Address | City/State/Zipcode | Phone Number | | Organization | | | | + + + + + | [facility] | [address] | [place] [address] | [phone] | + + + + + POC [...] | | | POC | performed at [facility];[address] | | LABORATORY | | | | [address];[place] | | | | | | [address] | | | | + + + + + + + + | Specimen | + + | | + + + + + + + | Performing | Address | City/State/Zipcode | Phone Number | | Organization | | | | + + + + + | [facility] | [address] | [place] [address] | [phone] | + + + + + POC Glucose (12/28/2019 7:03 AM PDT) + + + + + + | Component | Value | Ref Range | Performed | Pathologist | | | | | At | Signature | + + + + + + | Glucose, | 153 (H)Comment: Testing | 65 - 99 mg/dL | [facility] | | | POC | performed at [facility];[address] | | LABORATORY | | | | [address];[place] | | | | | | [address] | | | | + + + + + + + + | Specimen | + + | | + + + + + + + | Performing | Address | City/State/Zipcode | Phone Number | | Organization | | | | + + + + + | [facility] | [address] | [place] [address] | [phone] | + + + + + CBC [...] | Absolute | performed at [facility], [address] | K/uL | LABORATORY | | | | [address], | | | | | | [place] [address] | | | | + + + + + + + + | Specimen | + + | Blood | + + + + + + + | Performing | Address | City/State/Zipcode | Phone Number | | Organization | | | | + + + + + | [facility] | [address] | [place] [address] | [phone] | + + + + + Basic [...] 16 (L)Comment: GFR <60: | >60 | [facility] | | | GFR | CHRONIC [...] [facility], [address] | | | | | | [facility], | | | | | | [place] [address] | | | | + + + + + + + + | Specimen | + + | Blood | + + + + + + + | Performing | Address | City/State/Zipcode | Phone Number | | Organization | | | | + + + + + | [facility] | [address] | [place] [address] | [phone] | + + + + + POC Glucose (12/27/2019 8:44 PM PDT) + + + + + + | Component | Value | Ref Range | Performed | Pathologist | | | | | At | Signature | + + + + + + | Glucose, | 191 (H)Comment: Testing | 65 - 99 mg/dL | [facility] | | | POC | performed at [facility];[address] | | LABORATORY | | | | [address];[place] | | | | | | [address] | | | | + + + + + + + + | Specimen | + + | | + + + + + + + | Performing | Address | City/State/Zipcode | Phone Number | | Organization | | | | + + + + + | [facility] | [address] | [place] [address] | [phone] | + + + + + POC Glucose (12/27/2019 3:30 PM PDT) + + + + + + | Component | Value | Ref Range | Performed | Pathologist | | | | | At | Signature | + + + + + + | Glucose, | 156 (H)Comment: Testing | 65 - 99 mg/dL | [facility] | | | POC | performed at [facility];[address] | | LABORATORY | | | | [address];[place], [place] | | | | | | [address] | | | | + + + + + + + + | Specimen | + + | | + + + + + + + | Performing | Address | City/State/Zipcode | Phone Number | | Organization | | | | + + + + + | [facility] | [address] | [place] [address] | [phone] | + + + + + Red [...] | | LABORATORY | | | | [address];[place] [address] | | | | + + + + + + + + | Specimen | + + | | + + + + + + + | Performing | Address | City/State/Zipcode | Phone Number | | Organization | | | | + + + + + | [facility] | [address] | [place] [address] | [phone] | + + + + + Type [...] + + + | BB BAND | [id number] | | [facility] | | | | | | LABORATORY | | + + + + + + | UNIT # | [id number] | | [facility] | | | | [...] + + + | UNIT # | [id number] | | [facility] | | | | [...] | | | RESULT | performed at [facility];[address] | | LABORATORY | | | | [address];[place] | | | | | | [address] | | | | + + + + + + + + | Specimen | + + | Blood | + + + + + + + | Performing | Address | City/State/Zipcode | Phone Number | | Organization | | | | + + + + + | [facility] | [address] | [place] [address] | [phone] | + + + + + POC [...] | | | POC | performed at [facility];[address] | | LABORATORY | | | | [address];[place] | | | | | | [address] | | | | + + + + + + + + | Specimen | + + | | + + + + + + + | Performing | Address | City/State/Zipcode | Phone Number | | Organization | | | | + + + + + | [facility] | [address] | [place] [address] | [phone] | + + + + + CBC [...] 0.02Comment: Testing | 0.00 - 0.10 | [facility] | | | Absolute | performed at [facility], [address] | K/uL | LABORATORY | | | | [address], | | | | | | [place] [address] | | | | + + + + + + + + | Specimen | + + | | + + + + + + + | Performing | Address | City/State/Zipcode | Phone Number | | Organization | | | | + + + + + | [facility] | [address] | [place] [address] | [phone] | + + + + + Procalcitonin [...] | | | | | | at [facility];[address] [place] [address] | | | | | | [facility];[place] [address] | | | | + + + + + + + + | Specimen | + + | Blood | + + + + + + + | Performing | Address | City/State/Zipcode | Phone Number | | Organization | | | | + + + + + | [facility] | [address] | [place] [address] | [phone] | + + + + + Basic [...] 13 (L)Comment: GFR <60: | >60 | [facility] | | | GFR | CHRONIC [...] | | | | | | MDRD IDMT traceable | | | | | | equation.Testing | | | | | | performed at [facility], [address] | | | | | | [facility], | | | | | | [place] [address] | | | | + + + + + + + + | Specimen | + + | Blood | + + + + + + + | Performing | Address | City/State/Zipcode | Phone Number | | Organization | | | | + + + + + | [facility] | [address] | [place] [address] | [phone] | + + + + + Vitamin D, Deficiency Screen (25-Hydroxy) (12/27/2019 5:04 AM PDT) + + + + + + | Component | Value | Ref Range | Performed | Pathologist | | | | | At | Signature | + + + + + + | Vit D, | 25.2 (L)Comment: Vitamin | 30.0 - 100.0 | [facility] | | | 25-Hydroxy | D deficiency has been | ng/mL | LABORATORY | | | | defined by the [place] | | | | | | [facility] and an | | | | [...] IOM | | | | | | ([place] [facility]). | | | | | [...] | | | | | performed at [facility], | | | | | | [address], | | | | | | [facility] [address] | | | | + + + + + + + + | Specimen | + + | Blood | + + + + + + + | Performing | Address | City/State/Rustcode | Phone Number | | Organization | | | | + + + + + | [facility] | [address] | [place] [address] | [phone] | + + + + + Potassium (12/27/2019 12:08 AM PDT) + + + + + + | Component | Value | Ref Range | Performed | Pathologist | | | | | At | Signature | + + + + + + | K | 4.0Comment: Testing | 3.5 - 4.9 | [facility] | | | | performed at [facility];[address] | mmol/L | LABORATORY | | | | [address];[place] | | | | | | [address] | | | | + + + + + + + + | Specimen | + + | Blood | + + + + + + + | Performing | Address | City/State/Zipcode | Phone Number | | Organization | | | | + + + + + | [facility] | [address] | [place] [address] | [phone] | + + + + + Magnesium (12/27/2019 12:08 AM PDT) + + + + + + | Component | Value | Ref Range | Performed | Pathologist | | | | | At | Signature | + + + + + + | Magnesium | 2.2Comment: Testing | 1.7 - 2.4 mg/dL | [facility] | | | | performed at [facility];[address] | | LABORATORY | | | | [address];[place] | | | | | | [address] | | | | + + + + + + + + | Specimen | + + | Blood | + + + + + + + | Performing | Address | City/State/Zipcode | Phone Number | | Organization | | | | + + + + + | [facility] | [address] | [place] [address] | [phone] | + + + + + ECG [...] | | | POC | performed at [facility];[address] | | LABORATORY | | | | [address];[place] | | | | | | [address] | | | | + + + + + + + + | Specimen | + + | | + + + + + + + | Performing | Address | City/State/Zipcode | Phone Number | | Organization | | | | + + + + + | [facility] | [address] | [place] [address] | [phone] | + + + + + POC [...] | | | POC | performed at [facility];[address] | | LABORATORY | | | | [address];[place], [place] | | | | | | [address] | | | | + + + + + + + + | Specimen | + + | | + + + + + + + | Performing | Address | City/State/Zipcode | Phone Number | | Organization | | | | + + + + + | [facility] | [address] | [place] [address] | [phone] | + + + + + Complement [...] | | | COMPLEMENT | performed at [facility], | | LABORATORY | | | | [address], | | | | | | [facility] [address] | | | | + + + + + + + + | Specimen | + + | | + + + + + + + | Performing | Address | City/State/Zipcode | Phone Number | | Organization | | | | + + + + + | [facility] | [address] | [place] [address] | [phone] | + + + + + Complement C3 Ag (12/26/2019 12:33 PM PDT) + + + + + + | Component | Value | Ref Range | Performed | Pathologist | | | | | At | Signature | + + + + + + | C3 | 53 (L)Comment: Testing | 82 - 167 mg/dL | [facility] | | | COMPLEMENT | performed at [facility], | | LABORATORY | | | | [address], | | | | | | [facility] [address] | | | | + + + + + + + + | Specimen | + + | | + + + + + + + | Performing | Address | City/State/Zipcode | Phone Number | | Organization | | | | + + + + + | [facility] | [address] | [place] [address] | [phone] | + + + + + POC Glucose (12/26/2019 11:15 AM PDT) + + + + + + | Component | Value | Ref Range | Performed | Pathologist | | | | | At | Signature | + + + + + + | Glucose, | 161 (H)Comment: Testing | 65 - 99 mg/dL | [facility] | | | POC | performed at [facility];[address] | | LABORATORY | | | | [address];[place] | | | | | | [address] | | | | + + + + + + + + | Specimen | + + | | + + + + + + + | Performing | Address | City/State/Zipcode | Phone Number | | Organization | | | | + + + + + | [facility] | [address] | [place] [address] | [phone] | + + + + + POC [...] | | | POC | performed at [facility];[address] | | LABORATORY | | | | [address];[place], [place] | | | | | | [address] | | | | + + + + + + + + | Specimen | + + | | + + + + + + + | Performing | Address | City/State/Zipcode | Phone Number | | Organization | | | | + + + + + | [facility] | [address] | [place] [address] | [phone] | + + + + + Parathyroid Hormone, Intraoperative (12/26/2019 4:25 AM PDT) + + + + + + | Component | Value | Ref Range | Performed | Pathologist | | | | | At | Signature | + + + + + + | PTH Intact | 167.0 (H)Comment: | 8.7 - 79.6 | [facility] | | | | Testing performed at | pg/mL | LABORATORY | | | | [facility];[address];[place] [address] | | | | + + + + + + + + | Specimen | + + | | + + + + + + + | Performing | Address | City/State/Zipcode | Phone Number | | Organization | | | | + + + + + | [facility] | [address] | [place] [address] | [phone] | + + + + + Renal [...] [facility], [address] | | | | | | [address], | | | | | | [place] [address] | | | | + + + + + + + + | Specimen | + + | Blood | + + + + + + + | Performing | Address | City/State/Zipcode | Phone Number | | Organization | | | | + + + + + | [facility] | [address] | [place] [address] | [phone] | + + + + + POC [...] | | | POC | performed at [facility];[address] | | LABORATORY | | | | [address];[place], [place] | | | | | | [address] | | | | + + + + + + + + | Specimen | + + | | + + + + + + + | Performing | Address | City/State/Zipcode | Phone Number | | Organization | | | | + + + + + | [facility] | [address] | [place] [address] | [phone] | + + + + + POC [...] | | | POC | performed at [facility];[address] | | LABORATORY | | | | [address];[place] | | | | | | [address] | | | | + + + + + + + + | Specimen | + + | | + + + + + + + | Performing | Address | City/State/Zipcode | Phone Number | | Organization | | | | + + + + + | [facility] | [address] | [place] [address] | [phone] | + + + + + ECHO [...] | | | POC | performed at [facility];[address] | | LABORATORY | | | | [address];[place], [place] | | | | | | [address] | | | | + + + + + + + + | Specimen | + + | | + + + + + + + | Performing | Address | City/State/Zipcode | Phone Number | | Organization | | | | + + + + + | [facility] | [address] | [place] [address] | [phone] | + + + + + POC Glucose (12/25/2019 7:56 AM PDT) + + + + + + | Component | Value | Ref Range | Performed | Pathologist | | | | | At | Signature | + + + + + + | Glucose, | 136 (H)Comment: Testing | 65 - 99 mg/dL | [facility] | | | POC | performed at [facility];[address] | | LABORATORY | | | | [address];[place] | | | | | | [address] | | | | + + + + + + + + | Specimen | + + | | + + + + + + + | Performing | Address | City/State/Zipcode | Phone Number | | Organization | | | | + + + + + | [facility] | [address] | [place] [address] | [phone] | + + + + + CK Total (12/25/2019 4:25 AM PDT) + + + + + + | Component | Value | Ref Range | Performed | Pathologist | | | | | At | Signature | + + + + + + | CK TOTAL | 104Comment: Testing | 55 - 400 U/L | [facility] | | | | performed at [facility];[address] | | LABORATORY | | | | [address];[place] | | | | | | [address] | | | | + + + + + + + + | Specimen | + + | Blood | + + + + + + + | Performing | Address | City/State/Zipcode | Phone Number | | Organization | | | | + + + + + | [facility] | [address] | [place] [address] | [phone] | + + + + + Renal [...] | | | | | | MDRD IDMT traceable | | | | | | equation.Testing | | | | | | performed at [facility], [address] | | | | | [facility], | | | | | | [place] [address] | | | | + + + + + + + + | Specimen | + + | Blood | + + + + + + + | Performing | Address | City/State/Zipcode | Phone Number | | Organization | | | | + + + + + | [facility] | [address] | [place] [address] | [phone] | + + + + + Cytoplasmic [...] | | | | | performed by [facility], | | | | | | [address], | | | | | | [facility] [address] | | | | + + + + + + + + | Specimen | + + | Blood | + + + + + + + | Performing | Address | City/State/Zipcode | Phone Number | | Organization | | | | + + + + + | [facility] | [address] | [place] [address] | [phone] | + + + + + Sedimentation [...] | | | | | [place] [address] | | | | + + + + + + + + | Specimen | + + | Blood | + + + + + + + | Performing | Address | City/State/Zipcode | Phone Number | | Organization | | | | + + + + + | [facility] | [address] | [place] [address] | [phone] | + + + + + Immunoglobulin, Free Light Chain (12/25/2019 4:22 AM PDT) + + + + + + | Component | Value | Ref Range | Performed | Pathologist | | | | | At | Signature | + + + + + + | [facility] [facility] | 121.2 (H) | 3.3 - [...] + + + + + + | [place] | 1.25Comment: Testing | 0.26 - 1.65 | [facility] | | | a Free | performed at [facility] | | LABORATORY | | | Light Chain | [place], [address] | | | | | Ratio | [place] [address] | | | | + + + + + + + + | Specimen | + + | Blood | + + + + + + + | Performing | Address | City/State/Zipcode | Phone Number | | Organization | | | | + + + + + | [facility] | [address] | [place] [address] | [phone] | + + + + + Glomerular Basement Membrane Ab, IgG (12/25/2019 4:22 AM PDT) + + + + + + | Component | Value | Ref Range | Performed | Pathologist | | | | | At | Signature | + + + + + + | Antiglomeru | 2Comment: | 0 - 20 units | [facility] | | | lar BM Ab, [...] | | | | | [place], [place] | | | | | | [place] | | | | | | [address] | | | | + + + + + + + + | Specimen | + + | Blood | + + + + + + + | Performing | Address | City/State/Zipcode | Phone Number | | Organization | | | | + + + + + | [facility] | [address] | [place] [address] | [phone] | + + + + + Hepatitis [...] | | | | | | 0.9The [facility] recommends | | | | | | that a positive HCV | | | | | | antibody resultbe | | | | | | followed up with a HCV | | | | | | Nucleic Acid | | | | | | Amplificationtest | | | | | | ([id number]).Testing | | | | | | performed at [facility], | | | | | | [address], | | | | | | [facility] [address] | | | | + + + + + + + + | Specimen | + + | Blood | + + + + + + + | Performing | Address | City/State/Zipcode | Phone Number | | Organization | | | | + + + + + | [facility] | [address] | [place] [address] | [phone] | + + + + + CK Total (12/25/2019 4:22 AM PDT) + + + + + + | Component | Value | Ref Range | Performed | Pathologist | | | | | At | Signature | + + + + + + | CK TOTAL | 100Comment: Testing | 55 - 400 U/L | [facility] | | | | performed at [facility];[address] | | LABORATORY | | | | [address];[place] | | | | | | [address] | | | | + + + + + + + + | Specimen | + + | Blood | + + + + + + + | Performing | Address | City/State/Zipcode | Phone Number | | Organization | | | | + + + + + | [facility] | [address] | [place] [address] | [phone] | + + + + + Lactate Dehydrogenase (12/25/2019 4:22 AM PDT) + + + + + + | Component | Value | Ref Range | Performed | Pathologist | | | | | At | Signature | + + + + + + | LDH TOTAL | 154Comment: Testing | 120 - 246 U/L | [facility] | | | | performed at [facility];[address] | | LABORATORY | | | | [address];[place] | | | | | | [address] | | | | + + + + + + + + | Specimen | + + | Blood | + + + + + + + | Performing | Address | City/State/Zipcode | Phone Number | | Organization | | | | + + + + + | [facility] | [address] | [place] [address] | [phone] | + + + + + Magnesium (12/25/2019 4:22 AM PDT) + + + + + + | Component | Value | Ref Range | Performed | Pathologist | | | | | At | Signature | + + + + + + | Magnesium | 2.5 (H)Comment: Testing | 1.7 - 2.4 mg/dL | [facility] | | | | performed at [facility], [address] | | LABORATORY | | | | [address], | | | | | | [place] [address] | | | | + + + + + + + + | Specimen | + + | Blood | + + + + + + + | Performing | Address | City/State/Zipcode | Phone Number | | Organization | | | | + + + + + | [facility] | [address] | [place] [address] | [phone] | + + + + + Protein, [...] | | | | | [place] [address] | | | | + + + + + + + + | Specimen | + + | | + + + + + + + | Performing | Address | City/State/Zipcode | Phone Number | | Organization | | | | + + + + + | [facility] | [address] | [place] [address] | [phone] | + + + + + Creatinine, [...] Jamie, | | | | | | [place] [address] | | | | + + + + + + + + | Specimen | + + | | + + + + + + + | Performing | Address | City/State/Zipcode | Phone Number | | Organization | | | | + + + + + | [facility] | [address] [facility] | [place] [address] | [phone] | + + + + + Protein/Creatinine [...] | | | | | [place] [address] | | | | + + + + + + + + | Specimen | + + | Urine | + + + + + + + | Performing | Address | City/State/Zipcode | Phone Number | | Organization | | | | + + + + + | [facility] | [address] | [place] [address] | [phone] | + + + + + POC Glucose (12/24/2019 8:55 PM PDT) + + + + + + | Component | Value | Ref Range | Performed | Pathologist | | | | | At | Signature | + + + + + + | Glucose, | 149 (H)Comment: Testing | 65 - 99 mg/dL | [facility] | | | POC | performed at [facility];[address] | | LABORATORY | | | | [address];[place] | | | | | | [address] | | | | + + + + + + + + | Specimen | + + | | + + + + + + + | Performing | Address | City/State/Zipcode | Phone Number | | Organization | | | | + + + + + | [facility] | [address] | [place] [address] | [phone] | + + + + + POC Glucose (12/24/2019 5:14 PM PDT) + + + + + + | Component | Value | Ref Range | Performed | Pathologist | | | | | At | Signature | + + + + + + | Glucose, | 136 (H)Comment: Testing | 65 - 99 mg/dL | [facility] | | | POC | performed at [facility];[address] | | LABORATORY | | | | [address];[place] | | | | | | [address] | | | | + + + + + + + + | Specimen | + + | | + + + + + + + | Performing | Address | City/State/Zipcode | Phone Number | | Organization | | | | + + + + + | [facility] | [address] | [place] [address] | [phone] | + + + + + ECG [...] | | | Arterial, | performed at [facility];[address] | | LABORATORY | | | POC | [facility];[place], [place] | | | | | | [address] | | | | + + + + + + + + | Specimen | + + | | + + + + + + + | Performing | Address | City/State/Zipcode | Phone Number | | Organization | | | | + + + + + | [facility] | [address] | [place] [address] | [phone] | + + + + + Coronavirus (COVID-19) NAAT (12/24/2019 1:10 PM PDT) + + + + + + | Component | Value | Ref Range | Performed | Pathologist | | | | | At | Signature | + + + + + + | SARS-CoV-2, | NEGATIVEComment: Testing | NEG | [facility] | | | NAAT | performed at [facility];[address] | | LABORATORY | | | (COVID-19) | [address];[place], [place] | | | | | | [address] | | | | + + + + + + + + | Specimen | + + | Tissue - Entire | | nasopharynx (body | | structure) | + + + + + + + | Performing | Address | City/State/Zipcode | Phone Number | | Organization | | | | + + + + + | [facility] | [address] | [place] [address] | [phone] | + + + + + Culture, [...] LABORATORY | | | | [address];[place] [address] | | | | + + + + + + | RESULT | NO GROWTH 6 DAYS | | [facility] | | | | | | LABORATORY | | + + + + + + | RESULT | Testing performed at | | [facility] | | | | TCL, [address] | | LABORATORY | | | | [place], [place] | | | | | | [address]Cnmahed: Testing | | | | | | performed at [facility], [address] | | | | | | [place], [place] | | | | | | [address] | | | | + + + + + + + + | Specimen | + + | Blood - Peripheral | | blood specimen | | (specimen) | + + + + + + + | Performing | Address | City/State/Zipcode | Phone Number | | Organization | | | | + + + + + | [facility] | [address] | [place] [address] | [phone] | + + + + + Culture, [...] Special | Testing performed at | | [facility] | | | Requests | [facility];[address] | | LABORATORY | | | | [address];[place] [address] | | | | + + + + + + | RESULT | NO GROWTH 6 DAYS | | [facility] | | | | | | LABORATORY | | + + + + + + | RESULT | Testing performed at | | [facility] | | | | TCL, [address] | | LABORATORY | | | | [place] | | | | | | [address]Xrtddrb: Testing | | | | | | performed at [facility], [address] | | | | | | [address] [place] | | | | | | [address] | | | | + + + [...] | [address] | [place] [address] | [phone] | + + + + + Urinalysis [...] - 1.030 | [facility] | | | [place], | | | LABORATORY | | | [...] | 1+ (A)Comment: Testing | NONE | [facility] | | | Urine | performed at [facility], [address] | | LABORATORY | | | | [address], | | | | | | [place] [address] | | | | + + + [...] | + + + + + | [facility] | [address] | [place] [address] | [phone] | + + + + + Sodium, Urine, Random (12/24/2019 12:45 PM PDT) + + + + + + | Component | Value | Ref Range | Performed | Pathologist | | | | | At | Signature | + + + + + + | Sodium, | 52Comment: NO NORMAL | mmol/L | [facility] | | | Random | [facility] | | LABORATORY | | | urine | performed at [facility], [address] | | | | | [address], | | | | | | [place] [address] | | | | + + + [...] | + + + + + | [facility] | [address] | [place] [address] | [phone] | + + + + + Creatinine, Urine, Random (12/24/2019 12:45 PM PDT) + + + + + + | Component | Value | Ref Range | Performed | Pathologist | | | | | At | Signature | + + + + + + | Creatinine, | 70.0Comment: NO NORMAL | mg/dL | [facility] | | | random | [facility]ISHED[facility] | | LABORATORY | | | urine | performed at [facility], [address] | | | | | [address], | | | | | | [place] [address] | | | | + + + [...] | + + + + + | [facility] | [address] | [place] [address] | [phone] | + + + + + Lactic Acid (12/24/2019 12:27 PM PDT) + + + + + + | Component | Value | Ref Range | Performed | Pathologist | | | | | At | Signature | + + + + + + | Lactate, | 1.6Comment: Testing | 0.4 - 2.0 | [facility] | | | Serum | performed at [facility];[address] | mmol/L | LABORATORY | | | | [address];[place] | | | | | | [address] | | | | + + + + + + + + | Specimen | + + | Blood | + + + + + + + | Performing | Address | City/State/Zipcode | Phone Number | | Organization | | | | + + + + + | [facility] | [address] | [place] [address] | [phone] | + + + + + Procalcitonin [...] | | | | | | at [facility];[address] | [address];[place] [address] | | | | + + + + + + + + | Specimen | + + | Blood | + + + + + + + | Performing | Address | City/State/Zipcode | Phone Number | | Organization | | | | + + + + + | [facility] | [address] | [place] [address] | [phone] | + + + + + POC Glucose (12/24/2019 12:25 PM PDT) + + + + + + | Component | Value | Ref Range | Performed | Pathologist | | | | | At | Signature | + + + + + + | Glucose, | 143 (H)Comment: Testing | 65 - 99 mg/dL | [facility] | | | POC | performed at [facility];[address] | | LABORATORY | | | | [address];[place] | | | | | | [address] | | | | + + + + + + + + | Specimen | + + | | + + + + + + + | Performing | Address | City/State/Zipcode | Phone Number | | Organization | | | | + + + + + | [facility] | [address] | [place] [address] | [phone] | + + + + + POC [...] | | | POC | performed at [facility];[address] | | LABORATORY | | | | [address];[place], [place] | | | | | | [address] | | | | + + + + + + + + | Specimen | + + | | + + + + + + + | Performing | Address | City/State/Zipcode | Phone Number | | Organization | | | | + + + + + | [facility] | [address] | [place] [address] | [phone] | + + + + + CBC [...] | 12.2Comment: NO NORMAL | fl | [facility] | | | | [facility] ESTABLISHEDTesting | | LABORATORY | | | | performed at [facility];[address] | | | | | | [address];[place] | | | | | | [address] | | | | + + + + + + + + | Specimen | + + | Blood | + + + + + + + | Performing | Address | City/State/Zipcode | Phone Number | | Organization | | | | + + + + + | [facility] | [address] | [place] [address] | [phone] | + + + + + Basic [...] [facility], [address] | | | | | | [facility], | | | | | | [place] [address] | | | | + + + + + + + + | Specimen | + + | Blood | + + + + + + + | Performing | Address | City/State/Zipcode | Phone Number | | Organization | | | | + + + + + | [facility] | [address] | [place] [address] | [phone] | + + + + + POC [...] | | | POC | performed at [facility];[address] | | LABORATORY | | | | [address];[place], [place] | | | | | | [address] | | | | + + + + + + + + | Specimen | + + | | + + + + + + + | Performing | Address | City/State/Zipcode | Phone Number | | Organization | | | | + + + + + | [facility] | [address] | [place] [address] | [phone] | + + + + + POC Glucose (12/23/2019 4:35 PM PDT) + + + + + + | Component | Value | Ref Range | Performed | Pathologist | | | | | At | Signature | + + + + + + | Glucose, | 129 (H)Comment: Testing | 65 - 99 mg/dL | [facility] | | | POC | performed at [facility];[address] | | LABORATORY | | | | [address];[place] | | | | | | [address] | | | | + + + + + + + + | Specimen | + + | | + + + + + + + | Performing | Address | City/State/Zipcode | Phone Number | | Organization | | | | + + + + + | [facility] | [address] | [place] [address] | [phone] | + + + + + POC Glucose (12/23/2019 2:05 PM PDT) + + + + + + | Component | Value | Ref Range | Performed | Pathologist | | | | | At | Signature | + + + + + + | Glucose, | 158 (H)Comment: Testing | 65 - 99 mg/dL | [facility] | | | POC | performed at [facility];[address] | | LABORATORY | | | | [address];[place] | | | | | | [address] | | | | + + + + + + + + | Specimen | + + | | + + + + + + + | Performing | Address | City/State/Zipcode | Phone Number | | Organization | | | | + + + + + | [facility] | [address] | [place] [address] | [phone] | + + + + + POC [...] | | | POC | performed at [facility];[address] | | LABORATORY | | | | [address];[place], [place] | | | | | | [address] | | | | + + + + + + + + | Specimen | + + | | + + + + + + + | Performing | Address | City/State/Zipcode | Phone Number | | Organization | | | | + + + + + | [facility] | [address] | [place] [address] | [phone] | + + + + + Basic [...] 22 (L)Comment: GFR <60: | >60 | [facility] | | | GFR | CHRONIC [...] | | | | | performed at [facility] | | | | | | [facility];[place], [place] | | | | | | [address] | | | | + + + + + + + + | Specimen | + + | Blood | + + + + + + + | Performing | Address | City/State/Zipcode | Phone Number | | Organization | | | | + + + + + | [facility] | [address] | [place] [address] | [phone] | + + + + + Phosphorus (12/23/2019 4:04 AM PDT) + + + + + + | Component | Value | Ref Range | Performed | Pathologist | | | | | At | Signature | + + + + + + | Phosphorus | 4.6Comment: Testing | 2.3 - 4.8 mg/dL | [facility] | | | | performed at [facility];[address] | | LABORATORY | | | | [address];[place] | | | | | | [address] | | | | + + + + + + + + | Specimen | + + | Blood | + + + + + + + | Performing | Address | City/State/Zipcode | Phone Number | | Organization | | | | + + + + + | [facility] | [address] | [place] [address] | [phone] | + + + + + Magnesium (12/23/2019 4:04 AM PDT) + + + + + + | Component | Value | Ref Range | Performed | Pathologist | | | | | At | Signature | + + + + + + | Magnesium | 2.1Comment: Testing | 1.7 - 2.4 mg/dL | [facility] | | | | performed at [facility];[address] | | LABORATORY | | | | [address];[place], [place] | | | | | | [address] | | | | + + + + + + + + | Specimen | + + | Blood | + + + + + + + | Performing | Address | City/State/Zipcode | Phone Number | | Organization | | | | + + + + + | [facility] | [address] | [place] [address] | [phone] | + + + + + CBC [...] LABORATORY | | | | performed at [facility];[address] | | | | | | [address];[place] | | | | | | [address] | | | | + + + + + + + + | Specimen | + + | Blood | + + + + + + + | Performing | Address | City/State/Zipcode | Phone Number | | Organization | | | | + + + + + | [facility] | [address] | [place] [address] | [phone] | + + + + + Hemoglobin (12/22/2019 9:37 PM PDT) + + + + + + | Component | Value | Ref Range | Performed | Pathologist | | | | | At | Signature | + + + + + + | Hemoglobin | 9.1 (L)Comment: Testing | 13.2 - 17.0 | [facility] | | | | performed at [facility];[address] | g/dL | LABORATORY | | | | [address];[place], [place] | | | | | | [address] | | | | + + + + + + + + | Specimen | + + | Blood | + + + + + + + | Performing | Address | City/State/Zipcode | Phone Number | | Organization | | | | + + + + + | [facility] | [address] | [place] [address] | [phone] | + + + + + Hematocrit (12/22/2019 9:37 PM PDT) + + + + + + | Component | Value | Ref Range | Performed | Pathologist | | | | | At | Signature | + + + + + + | Hematocrit | 27.4 (L)Comment: Testing | 39.0 - 50.0 % | [facility] | | | | performed at [facility];[address] | | LABORATORY | | | | [address];[place] | | | | | | [address] | | | | + + + + + + + + | Specimen | + + | Blood | + + + + + + + | Performing | Address | City/State/Zipcode | Phone Number | | Organization | | | | + + + + + | [facility] | [address] | [place] [address] | [phone] | + + + + + POC [...] | | | POC | performed at [facility];[address] | | LABORATORY | | | | [address];[place] | | | | | | [address] | | | | + + + + + + + + | Specimen | + + | | + + + + + + + | Performing | Address | City/State/Zipcode | Phone Number | | Organization | | | | + + + + + | [facility] | [address] | [place] [address] | [phone] | + + + + + POC [...] | | | POC | performed at [facility];[address] | | LABORATORY | | | | [address];[place] | | | | | | [address] | | | | + + + + + + + + | Specimen | + + | | + + + + + + + | Performing | Address | City/State/Zipcode | Phone Number | | Organization | | | | + + + + + | [facility] | [address] [facility] | [place] [address] | [phone] | + + + + + Red [...] | [facility] | | | COMMENT | [facility];[address] | | LABORATORY | | | | [address];[place] [address] | | | | + + + + + + + + | Specimen | + + | | + + + + + + + | Performing | Address | City/State/Zipcode | Phone Number | | Organization | | | | + + + + + | [facility] | [address] | [place] [address] | [phone] | + + + + + POC Glucose (12/22/2019 10:38 AM PDT) + + + + + + | Component | Value | Ref Range | Performed | Pathologist | | | | | At | Signature | + + + + + + | Glucose, | 161 (H)Comment: Testing | 65 - 99 mg/dL | [facility] | | | POC | performed at [facility];[address] | | LABORATORY | | | | [address];[place] | | | | | | [address] | | | | + + + + + + + + | Specimen | + + | | + + + + + + + | Performing | Address | City/State/Zipcode | Phone Number | | Organization | | | | + + + + + | [facility] | [address] | [place] [address] | [phone] | + + + + + NATHALIA [...] | | | POC | performed at [facility];[address] | g/dL | LABORATORY | | | | [address];[place], [place] | | | | | | [address] | | | | + + + + + + + + | Specimen | + + | | + + + + + + + | Performing | Address | City/State/Zipcode | Phone Number | | Organization | | | | + + + + + | [facility] | [address] | [place] [address] | [phone] | + + + + + POC [...] | | | POC | performed at [facility];[address] | g/dL | LABORATORY | | | | [address];[place], [place] | | | | | | [address] | | | | + + + + + + + + | Specimen | + + | | + + + + + + + | Performing | Address | City/State/Zipcode | Phone Number | | Organization | | | | + + + + + | [facility] | [address] | [place] [address] | [phone] | + + + + + POC [...] | | | POC | performed at [facility];[address] | g/dL | LABORATORY | | | | [address];[place], [place] | | | | | | [address] | | | | + + + + + + + + | Specimen | + + | | + + + + + + + | Performing | Address | City/State/Zipcode | Phone Number | | Organization | | | | + + + + + | [facility] | [address] [facility] | [place] [address] | [phone] | + + + + + POC [...] | | | POC | performed at [facility];[address] | g/dL | LABORATORY | | | | [address];[place], [place] | | | | | | [address] | | | | + + + + + + + + | Specimen | + + | | + + + + + + + | Performing | Address | City/State/Zipcode | Phone Number | | Organization | | | | + + + + + | [facility] | [address] | [place] [address] | [phone] | + + + + + Type [...] + + + | BB BAND | [id number] | | [facility] | | | | | | LABORATORY | | + + + + + + | UNIT # | [id number] | | [facility] | | | | [...] | | | RESULT | performed at [facility];[address] | | LABORATORY | | | | [address];[place] | | | | | | [address] | | | | + + + + + + | UNIT # | [id number] | | [facility] | | | | [...] | + + + + + | [facility] | [address] | [place] [address] | [phone] | + + + + + POC Glucose (12/22/2019 5:35 AM PDT) + + + + + + | Component | Value | Ref Range | Performed | Pathologist | | | | | At | Signature | + + + + + + | Glucose, | 155 (H)Comment: Testing | 65 - 99 mg/dL | [facility] | | | POC | performed at [facility] [place];[address] | | LABORATORY | | | | [address];[place] | | | | | | [address] | | | | + + + + + + + + | Specimen | + + | | + + + + + + + | Performing | Address | City/State/Zipcode | Phone Number | | Organization | | | | + + + + + | [facility] | [address] | [place] [address] | [phone] | + + + + + Shine ORTEGA (12/22/2019 5:26 AM PDT) + + + + + + | Component | Value | Ref Range | Performed | Pathologist | | | | | At | Signature | + + + + + + | INR | 1.2Comment: REFERENCE | | [facility] | | | | RANGE:0.9 - [...] | | | | | performed at [facility] [place];[address] | | | | | | [address];[place] | | | | | | [address] | | | | + + + + + + + + | Specimen | + + | Blood | + + + + + + + | Performing | Address | City/State/Zipcode | Phone Number | | Organization | | | | + + + + + | [facility] | [address] | [place] [address] | [phone] | + + + + + CBC [...] | Absolute | performed at [facility], [address] | LABORATORY | | | | [address], | | | | | | [place] [address] | | | | + + + + + + + + | Specimen | + + | Blood | + + + + + + + | Performing | Address | City/State/Zipcode | Phone Number | | Organization | | | | + + + + + | [facility] | [address] | [place] [address] | [phone] | + + + + + Magnesium [...] | | | | | [place] [address] | | | | + + + + + + + + | Specimen | + + | Blood | + + + + + + + | Performing | Address | City/State/Zipcode | Phone Number | | Organization | | | | + + + + + | [facility] | [address] | [place] [address] | [phone] | + + + + + Basic [...] [facility], [address] | | | | | | [facility], | | | | | | [place] [address] | | | | + + + + + + + + | Specimen | + + | Blood | + + + + + + + | Performing | Address | City/State/Zipcode | Phone Number | | Organization | | | | + + + + + | [facility] | [address] | [place] [address] | [phone] | + + + + + POC [...] | | | POC | [facility] [facility];[address] | | LABORATORY | | | | [address];[place], [place] | | | | | | [address] | | | | + + + + + + + + | Specimen | + + | | + + + + + + + | Performing | Address | City/State/Zipcode | Phone Number | | Organization | | | | + + + + + | [facility] | [address] | [place] [address] | [phone] | + + + + + POC [...] | | | POC | performed at [facility];[address] | | LABORATORY | | | | [address];[place] | | | | | | [address] | | | | + + + + + + + + | Specimen | + + | | + + + + + + + | Performing | Address | City/State/Zipcode | Phone Number | | Organization | | | | + + + + + | [facility] | [address] | [place] [address] | [phone] | + + + + + documented [...] | | | | | | Starting [facility] 12/26/19 at 1637 | | | [...] | | | | | | | [phone] Use NIGHT DOSE for | | | | | | | doses scheduled: HS, | | | | | | | Nighttime [id number] If the BG is | | | [...]
--- OUTSIDE RECORDS SUMMARY | ~2020-03-05 | XMS | Encounter Summary ---
Demographics + + + | Address | [address] | | | [place] [address] | + + + | Home Phone [...] [place] | | | | | [address] | | + + + + + | Deanna Lawson | ECON | Unknown | | + + + + + Care Team Providers + +------+ + | Care Clerical Secretary Name | Role | Phone | + [...] + + | 12/28/ | Surgery | [facility] | Lamont Hernandez MD | EGD | | 2020 | | [facility] | [address] | | | | | INTRA [address] | [place] | | | | | [address] [place] | [address] | | | | | [address] | [phone] | | | | | [phone] | | | +--------+---------+ + + + [...] was on board. No immediate indication for CHANNEL PARTNERS. Patient was also seen by physical therapy and occupational therapy and was recommended for discharging to [facility]. However patient will b e going to [facility] at this time. Patient also had [...] No CVA tenderness, no spinal tenderness Disposition: [facility] Condition: Fair No discharge procedures on [...] BUNCREARATIO 30 01/01/2020 PTH 72.57 (A) 04/01/2019 [id number] 25.2 (L) 12/27/2019 CALCIUM 8.6 01/01/2020 PHOS [...] been following up with ENEDINA mena in [place]. He has unrecovered acute kidney injury and a higher baseline creatinine. At this time there is no clinical uremia, refractory volume overload, refractory acidosis, refractory hyperkalemia and no urgent indication of starting CHANNEL PARTNERS. Neither is there an indication for diagnostic [...] Incentive spirometry. Transfuse Prn. No indication for CHANNEL PARTNERS for now. Await renal recovery. On discharge [...] was completed later after rounds. Dictation software, Compufirst, was used which may contain error for [...] but not limited to potential need for CHANNEL PARTNERS . This is a patient with multiple [...] is waiting downstairs. Deanna Doe RN, CMSRN, [facility] Inpatient Wound Ostomy Care [phone] 01/01/2020 11:46 AM Chai, Savana Irving RN [...] BUNCREARATIO 25 12/31/2019 PTH 72.57 (A) 04/01/2019 [id number] 25.2 (L) 12/27/2019 CALCIUM 8.5 12/31/2019 PHOS [...] been following up with ENEDINA mena in [place]. He has unrecovered acute kidney injury and a higher baseline creatinine. At this time there is no clinical uremia, refractory volume overload, refractory acidosis, refractory hyperkalemia and no urgent indication of starting CHANNEL PARTNERS. Neither is there an indication for diagnostic [...] Incentive spirometry. Transfuse Prn. No indication for CHANNEL PARTNERS for now. Await renal recovery. I discussed [...] was completed later after rounds. Dictation software, Compufirst, was used which may contain error for [...] but not limited to potential need for CHANNEL PARTNERS . This is a patient with multiple [...] injuries: see wound RN note for treatment. [facility] ed, continue wound care at swing bed, send with extra dressing supplies. *Metabolic bone disorder: elevated PTH and phosphorus. Treatment per lacquer maker (see thei r note). Subjective No chest [...] who was admitted as a transfer from [facility] due t o a mechanical fall [...] and he was accepted by [facility] in [place], [place] for rehabilitation purposes. Hospital stay was [...] Medications Current Facilty-Administered PRN Medications Ordered in [facility] Medication Dose Route Frequency Provider [...] but remains week, he is accepted at [facility] in [place] with discharge plans tomorrow for rehabilit ation if remains stable. Will continue PT/OT, wound care services and monitor progress. Acute Kidney Injury on Chronic Kidney Disease Stage 3: This was likely due to ATN precipit ated by dehydration & blood loss, Clinically stable and creatinine is down to 3.0 range, [facility] hrology service on board and Dr. Beckford [...] discharge plans to Swing Bed Program in [facility] tomorrow. DVT prophylaxis with SCD's only due to risks of bleeding. Discharge plans tomorrow to [facility] in [place], [place] for rehabi litation. Called his daughter Ms. Huerta and left a message with updated information at phone number [phone]. Jerry Cihno MD 12/30/2019 turgill, DALILA Keys - 12/30/2019 12:35 PM PDTFormatting of this note might be different from the [facility] Service: Gastroenterology Consult Progress Note [...] Infusions dextrose 10% pantoprazole 8 mg/hr (12/30/19 0956) PRN Medications acetaminophen OR acetaminophen OR acetaminophen, [...] motor deficits. PSYCHIATRIC: Appropriate, affect appears normal [facility] Gastroenterology Patient Name: Andres Guzmán Procedure [...] physician, the nurse, the anesthesiologist and the photo technician in the pre-procedure area in the [...] successful. Thermal coagulation with Gold probe 7 Namibian x 5 pulses was successful with hemostasis. [...] 12/29/2019 8:36 AM Number of Addenda: 0 [facility] DATA Lab Results Component Value Date [...] ll with any questions. Florina Cantu PA-C [facility] Gastroenterology 12/30/2019 Associated attestation - Lamont Hernandez MD - 12/31/2019 2:17 PM [id number] male with GI bleeding due to duodenal ulcer with visible vessel. The ulcer and visible vessel were tr eated with injection and gold probe thermal coagulation. The patient was seen and examined by me personally. The case was discussed with the physician's assistant real estate manager and I agree with the assessment and p tim as outlined in the note. Continue PPI IV infusion for total of 72 hours and then when patient is discharged he must be on twice daily PPI for 8 weeks. Resume Eliquis in 1 week. Lamont Hernandez MD Gastroenterology staffNorth Beach[place], [facility] - 12/30/2019 11:05 AM [...] status. Disposition: Plan to discharge tomorrow, to Care Home Facility, once medically stable and cleared [...] BUNCREARATIO 23 12/30/2019 PTH 72.57 (A) 04/01/2019 [id number] 25.2 (L) 12/27/2019 CALCIUM 8.6 12/30/2019 PHOS [...] been following up with ENEDINA mena in [place]. That had improved with nonoliguric state but now seems to have leveled off at around 3 and this may be reflection of unrecovered acute kidney injury and a higher baseline creatinine. At this time there is no clinical uremia, refractory volume overload, refractory acidosis, refractory hyperkalemia and no urgent indication of starting CHANNEL PARTNERS. Neither is there an indication for diagnostic [...] Incentive spirometry. Transfuse Prn. No indication for CHANNEL PARTNERS for now. Await renal recovery. I discussed [...] was completed later after rounds. Dictation software, Compufirst, was used which may contain error for [...] but not limited to potential need for CHANNEL [employer]ERS . This is a patient with multiple [...] BUNCREARATIO 30 12/29/2019 PTH 72.57 (A) 04/01/2019 [id number] 25.2 (L) 12/27/2019 CALCIUM 8.7 12/29/2019 PHOS [...] been following up with ENEDINA mena in [place]. That seems to be improving with nonoliguric state and small reduction in creatinine. At this time there is no clinical uremia, refractory volume overload, refractory acidosis, refractory hyperkalemia and no urgent indication of starting CHANNEL PARTNERS. Neither is there an indication for diagnostic [...] Incentive spirometry. Transfuse Prn. No indication for CHANNEL PARTNERS for now. Await renal recovery. I discussed [...] was completed later after rounds. Dictation software, Compufirst, was used which may contain error for [...] but not limited to potential need for CHANNEL [employer]ERS . acetaminophen 1,000 mg Oral 3 times [...] who was admitted as a transfer from [facility] due t o a mechanical fall [...] finding placement and he was accepted by [facility] in [place], [place] for rehabilitation purposes. Hospita l stay [...] by [facility] in [place], [place] with discharge plans early next weeks [...] another 1 to 2 to SNF in [place], [place] if remains stable and improve d. Called his daughter Ms. Huerta and updated her about plans at phone number [phone]. Jerry Chino MD 12/29/2019 Norma Sarabia RN [...] BUNCREARATIO 28 12/28/2019 PTH 72.57 (A) 04/01/2019 [id number] 25.2 (L) 12/27/2019 CALCIUM 8.5 12/28/2019 PHOS [...] been following up with ENEDINA mena in [place]. That seems to be improving with nonoliguric state and small reduction in creatinine. At this time there is no clinical uremia, refractory volume overload, refractory acidosis, refractory hyperkalemia and no urgent indication of starting CHANNEL [employer]NERS. Neither is there an indication for diagnostic [...] Incentive spirometry. Transfuse Prn. No indication for CHANNEL PARTNERS for now. Await renal recovery. I discussed [...] was completed later after rounds. Dictation software, Compufirst, was used which may contain error for [...] but not limited to potential need for CHANNEL [employer]ERS . acetaminophen 1,000 mg Oral 3 times [...] DALILA Grant - 12/28/2019 10:49 AM PDT [facility] Service: Orthopedic Surgery Progress Note Hospital [...] DALILA Peralta has created this entry using [employer] Recognition Xigen e and [employer]here macros. The entry has been reviewed and [...] who was admitted as a transfer from [facility] due t o a mechanical fall [...] finding placement and he was accepted by [facility] in [place], [place] for rehabilitation purposes. Hospita l stay [...] Medications Current Facilty-Administered PRN Medications Ordered in [facility] Medication Dose Route Frequency Provider [...] making slow progress, he is accepted by [facility] in [place], [place] with discharge plans possib ly early next weeks if remains stable. Will continue PT/OT, wound care and monitor progress . Acute Kidney Injury on Chronic Kidney Disease Stage 3: Likely due to ATN precipitated by d jasonydration and blood loss, creatinine is down to 3.7 and continues to improve. Nephrology se katherin on board and Dr. Beckofrd following, appreciate his help and monitor BMP. [...] 1 to 2 to a SNF in [place], [place] when renal functions are st able and cleared by Nephrology services. Also called his daughter Ms. Huerta and updated her a bout plans at phone number [phone]. Jerry Chino MD 12/28/2019 hazal Robbins COTA [...] been following up with ENEDINA mena in [place]. That seems to be improving with nonoliguric state and small reduction in creatinine. At this time there is no clinical uremia, refractory volume overload, refractory acidosis, refractory hyperkalemia and no urgent indication of starting CHANNEL PARTNERS. Neither is there an indication for diagnostic [...] Incentive spirometry. Transfuse Prn. No indication for CHANNEL PARTNERS for now. Await renal recovery. I discussed [...] was completed later after rounds. Dictation software, Compufirst, was used which may contain error for [...] but not limited to potential need for CHANNEL [employer]ERS . acetaminophen 1,000 mg Oral 3 times [...] status. Disposition: Plan to discharge Monday, to Care Home Facility, once medically stable a nd [...] Net -400 ml . Treatment plan: per lacquer maker; slowly improving. *Blood pressure: labile; See VS [...] disorder: elevated PTH and phosphorus. Treatment per lacquer maker (see thei r note). Subjective No chest [...] who was admitted as a transfer from [facility] due t o a mechanical fall [...] Medications Current Facilty-Administered PRN Medications Ordered in [facility] Medication Dose Route Frequency Provider [...] trength and mobility. He is accepted by [facility] in [place], [place] and discharge is delayed due to [...] to 3 days to a SNF in [place], [place] when renal functions a re stable and cleared by Nephrology services. Jerry Chino MD 12/27/2019 Linda Montalvo RN - 12/26/2019 5:09 PM PDT [facility] Service: Wound Care Consult Note Hospital [...] This case has been discussed with Dr. Manchester, RN and CM. Electronically signed by: ENEDINA [...] who was admitted as a transfer from [facility] due t o a mechanical fall [...] Medications Current Facilty-Administered PRN Medications Ordered in [facility] Medication Dose Route Frequency Provider [...] placement is recommended. 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 Huerta and the at phone number [phone] Code Status: Full Code Regino Greene MD [...] status. Disposition: Plan to discharge Monday, to Care Home Facility, once medically stable a nd [...] lab follow-up and treatment per hospitalist and lacquer maker. *Blood pressure: hypotensive; See VS for BP trending. 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 Huerta and the at phone number [phone] Code Status: Full Code Regino Greene MD [...] conversation with family members today. Inpatient director rehabilitation program. Code Status: Full Code Regino Greene MD [...] sodium chloride 0.9% 100 mL/hr at 12/22/19 9105 OBJECTIVE Vital Signs: Vitals with Comments 12/22/2019 [...] GAMMA NAIL; Surgeon: Melquiades Baez DO; Location: [facility] OR OTHER SURGICAL HISTORY CATARACT EXTRACTION [...] Signed by: Lamont Hernandez MD 12/29/2019 [facility] Portions of this chart may have been created with Compufirst voice recognition software. Occasi onal wrong-word or sound-alike substitutions may have occurred due to the inherent castañeda itations of voice recognition software. Please read the chart carefully and recognize, using context, where these substitutions have occurred Julián Urbina MD - 12/21/2019 7:38 PM PDTFormatting of this note m ight be different from the original. [facility] Service: Hospitalist History and Physical Date of Admission: Dec 21 2019 [facility] Reason for Admission: Right comminuted intertrochanteric fracture of the hip CHIEF COMPLAINT: Mechanical fall tripped over side curb landed on the right hip area right hip pain today HISTORY OF PRESENT ILLNESS The patient is a 89 y.o. male Transfer from [facility] after fall with right hip fracture with multiple comor bidities being on Eliquis as well requested for higher level of care to transfer to [facility] wit h orthopedic 89 years old gentleman fall at this morning mechanical fall tripped on the curb and result ed in right hip pain [facility] visited x-ray found to have [...] and LFT Orthopedic on-call was consulted from [facility] and requested to transfer for higher level of care At [facility] with multiple comorbidities REVIEW OF SYSTEMS 12 [...] transfer lab WBC 5.9 hb10.2 hct 30.5 ejl015 potassium 5.1 Bun 85 cre 2.6 Co2-24 [...] as per stated reason Chronic A. fib [id number]- VASC score is 6- Hold Eliquis for [...] Old records reviewed on EMR. Dictation software, Compufirst, used which may contain error for similar sounding words even af ter review. Personal communication requested for any clarification. Disposition: inpatient Code Status: FULL CODE Primary Care Physician: MD Julián Nobles MD 12/21/2019 documented in thi s encounter Consult Notes Lamont Hernandez MD - 12/29/2019 10:26 AM PDT Gastroenterology Consultation: [facility] 12/29/2019 Andres Jones Ramirez 89 y.o. [id number] History of present illness: Gastroenterology consultation is requested for evaluation of GI bleeding with melena. This is an 89-year-old male with multiple medical problems and a history of hypertension, d iabetes, CKD stage III who was transferred from [facility] due to a fall and he sustain [...] GAMMA NAIL; Surgeon: Melquiades Baez DO; Location: [facility] OR OTHER SURGICAL HISTORY CATARACT EXTRACTION [...] file Gets together: Not on file Attends rastafari service: Not on file Active member of [...] this chart may have been created with Compufirst voice recognition software. Occasi onal wrong-word or sound-alike substitutions may have occurred due to the inherent castañeda itations of voice recognition software. Please read the chart carefully and recognize, using context, where these substitutions have occurred Hayley Peres MD - 12/25/2019 8:46 PM PDT Consulted by [facility] Problem List: Patient Active [...] III with baseline creatinine 1.7 admitted to [facility] on December 20 after a mechanical fall that led to right hip fracture. The patient was transferr ed from [facility] for surgery. The patient did have ORIF [...] Tristan Gage at the nephrology clinic in [place]. The patien t is poor historian and does not recall seeing a lacquer maker in the past. He also not awar [...] Order(s): IP CONSULT TO WOUND OSTOMY NURSE [facility] Service: Wound Care Consult Note Hospital [...] Elizabeth MD - 12/24/2019 11:33 AM PDT [facility] Service: Physicial Medicine & Rehab Consultation [...] resulted in right hip pain [facility] visited x-ray found to have a right [...] diabetes, and cirrhosis He was transferred to [facility], and is now s/p ORIF [...] GAMMA NAIL; Surgeon: Melquiades Baez, ; Location: [facility] OR OTHER SURGICAL HISTORY CATARACT EXTRACTION [...] should consist SNF placement closer to home ([place]). Code Status: Full Code Wing Marie Reed MD 12/24/2019 Melquiades Gill, - 12/22/2019 7:50 AM PDTAssociated Order(s): PROVIDER TO PROVIDER CONSULT [facility] Orthopaedic and Sports Medicine Service: Orthopedic [...] hip f racture. He was transferred to [facility] for concerns with other comor bidities. [...] surgery. He will be taken for a [facility] hip cephalo-medullary nail.The risks and [...] might b e different from the original. [facility] FACILITY TRANSFER ORDERS Patient Name: Andres Guzmán [...] limb(s)): [x] OT Evaluation & Treat [] BAG REPAIRER Evaluation Treat Wound/Skin Care: [] Follow current recommendations of the wound team for treatment. [] Wound Vac management per nursing protocol. Labs/Imaging: [] PT/INR: Frequency per SNF provider Goal INR: [] Fingerstick glucose check before meals and bedtime and PRN [] Labs: Follow up: Melquiades Baez DO [address] [facility] [phone] In 2 weeks For post op care Barbara Gilman MD [address] [place] [id number] In 1 week I have advised this [...] Regino Greene MD, certify that post hospital group home care is medically necessa ry on a continuing basis for any of the conditions for which he/she received care during thi s hospitalization. Additional Orders/Instructions: Physician's signature: 01/01/2020 10:[address] [facility] NURSING FACILITY USE ONLY: [] Admitting [...] HIGH Current Discharge Plan Anticipated Discharge Disposition: group home facility Expected DC Date: 12/31/2019 Barriers to Discharge: placement Steps Taken Toward Discharge: Attended morning rounds, called [facility] and provided upd ate of Pt Next Steps: d/c to [facility] Community Support Services Current Outpt/Agency/Support Groups: none Community Agency Name: none Other Resources: Discharge Transportation Transportation Needs: agency transportation Notes: Pt on course to discharge to [facility] tomorrow. Idalia ma with [facility] team and they are accepting Pt tomorrow if Pt is medically ready. Cm will follow for d/c needs that arise. Electronically signed: Ja Marcus RN 12/31/2019 3:54 PM lan of Andrez Perry PTA - 12/31/2019 2:04 PM PDT Physical Therapy Treatment Note Recommended discharge disposition: group home facility Post discharge physical therapy recommendation: Equipment [...] LTG Status continued at 12/30/2019 0805 LTG [place] Level supervised at 12/30/2019 0805 LTG Assistive Device none at 12/30/2019 0805 All Transfers Goal Most Recent Value LTG Status new at 12/30/2019804 LTG [place] Level minimum assist (75% patient effort) at 12/30/2019804 LTG Assistive Device 2 wheeled walker (FWW) at 12/30/2019804 Gait Goal Most Recent Value LTG Status new at 12/30/2019804 LTG [place] Level minimum assist (75% patient effort) at 12/30/2019804 LTG Assistive Device 2 wheeled walker (FWW) at 12/30/2019 08 LTG Distance (feet) 50ft at 12/30/2019 08 PT Time Calculation Individual Start Time: 1307 Individual Stop Time: 1320 Individual Total Time: 13 PT Total Treatment Time: 13 lan of [facility] - Liz Cabral RN - 12/31/2019 8:00 [...] of plan for discharge to [facility] tomorrow and has no concerns regarding [...] Physical Therapy Treatment Note Recommended discharge disposition: group home facility Post discharge physical therapy recommendation: Equipment [...] Bed Mobility Sit to Supine, Level of [place]: moderate assist (50% patient effort) Safety Issues: decreased use of legs for bridging/pushing Impairments: strength decreased Transfers Chair-Bed, Level of [place]: moderate assist (50% patient effort) [id number], Assistive Device: gait belt Sit-Stand, Level of [place]: moderate assist (50% patient effort) Stand-Sit, Level of [place]: moderate assist (50% patient effort) [id number], Assistive Device: gait belt Safety Issues: balance decreased during turns, step length decreased Impairments: strength decreased Goals Reflects last filed data and may be from multiple contributors. All Bed Mobility Goal Most Recent Value LTG Status continued at 12/30/2019 0805 LTG [place] Level supervised at 12/30/2019 0805 LTG Assistive Device none at 12/30/2019 0805 All Transfers Goal Most Recent Value LTG Status new at 12/30/2019 0805 LTG [place] Level minimum assist (75% patient effort) at 12/30/2019 0805 LTG Assistive Device 2 wheeled walker (FWW) at 12/30/2019 0805 Gait Goal Most Recent Value LTG Status new at 12/30/2019 0805 LTG [place] Level minimum assist (75% patient effort) at [...] Bed in low position, gait belt available, decision support analyst socks on. Problem: Skin Injury Risk Increased [...] Physical Therapy Re-Assessment Note Recommended discharge disposition: group home facility Post discharge physical therapy recommendation: ongoing [...] Documentation: sit to/from stand Sit-Stand, Level of [place]: moderate assist (50% patient effort) Stand-Sit, Level of [place]: moderate assist (50% patient effort) [id number], Assistive Device: other (see comments)(platform walker ) Maintain Weight Bearing Status: able to maintain weight bearing status Safety Issues: balance decreased during turns Impairments: pain, strength decreased, impaired balance Gait Gait Comments: ambulated with shuffled steps and decreased quita Level of [place]: moderate assist (50% patient effort) Assistive Device: [...] LTG Status continued at 12/30/2019 08 LTG [place] Level supervised at 12/30/2019 08 LTG Assistive Device none at 12/30/2019 0805 All Transfers Goal Most Recent Value LTG Status new at 12/30/2019 08 LTG [place] Level minimum assist (75% patient effort) at 12/30/2019 08 LTG Assistive Device 2 wheeled walker (FWW) at 12/30/2019 0805 Gait Goal Most Recent Value LTG Status new at 12/30/2019804 LTG [place] Level minimum assist (75% patient effort) at [...] RN at 05/2020 6:04 PM PDTPlan of [facility] Le[facility] Mayer RN - 12/29/2019 1:37 [...] Physical Therapy Treatment Note Recommended discharge disposition: group home facility Post discharge physical therapy recommendation: Equipment [...] Bed Mobility Supine to Sit, Level of [place]: moderate assist (50% patient effort) Sit to Supine, Level of [place]: moderate assist (50% patient effort) Safety Issues: decreased use of legs for bridging/pushing Impairments: strength decreased Transfers Sit-Stand, Level of [place]: moderate assist (50% patient effort) Stand-Sit, Level of [place]: moderate assist (50% patient effort) [id number], Assistive Device: other (see comments)(UP walker) Safety Issues: balance decreased during turns, step length decreased Impairments: strength decreased Gait Level of [place]: moderate assist (50% patient effort) Assistive Device: [...] LTG Status new at 12/23/2019 1600 LTG [place] Level supervised at 12/23/2019 1600 LTG Assistive Device none at 12/23/2019 1600 All Transfers Goal Most Recent Value LTG Status new at 12/23/2019 1600 LTG [place] Level modified independent at 12/23/2019 1600 LTG Assistive Device 2 wheeled walker (FWW) at 12/23/2019 1600 Gait Goal Most Recent Value LTG Status new at 12/23/2019 1600 LTG [place] Level stand by assist at 12/23/2019 1600 [...] Bed Mobility Supine to Sit, Level of [place]: moderate assist (50% patient effort) Safety Issues: decreased use of legs for bridging/pushing Impairments: strength decreased Transfers Sit-Stand, Level of [place]: moderate assist (50% patient effort) Stand-Sit, Level of [place]: moderate assist (50% patient effort) Yun-[id number]-Dqm, Assistive Device: other (see comments)(UP walker) Safety Issues: balance decreased during turns, step length decreased Impairments: strength decreased Exercises Bed exercises: ankle pumps, quad sets, heel slides, hip abduction/adduction, glut sets Goals Reflects last filed data and may be from multiple contributors. All Bed Mobility Goal Most Recent Value LTG Status new at 12/23/2019 1600 LTG [place] Level supervised at 12/23/2019 1600 LTG Assistive Device none at 12/23/2019 1600 All Transfers Goal Most Recent Value LTG Status new at 12/23/2019 1600 LTG [place] Level modified independent at 12/23/2019 1600 LTG Assistive Device 2 wheeled walker (FWW) at 12/23/2019 1600 Gait Goal Most Recent Value LTG Status new at 12/23/2019 1600 LTG [place] Level stand by assist at 12/23/2019 1600 [...] handled ghada e horn, long handled sponge, potato seed cutter, sock aide Barriers to community-based discharge: Level of assistance for ADLs/Mobility and Fall risk Recommended Frequency: 3 times/wk for 10 days with reassessment due by 01/03/20 Summary: pt supine in bed upon 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 Agreeable to participate in OT session [...] x1, rest break inbetween set d/t fatigue. 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 Goals Reflects last filed data and may be from multiple contributors. LB Dressing Goal Most Recent Value LTG Status new at 12/24/2019 0953 LTG [place] Level moderate assist (50% patient effort), verbal cues required at 12/23 0953 LTG Adaptive Equipment potato seed cutter, shoe horn, long handled, sock-aid [AE as needed] at 2019 0953 Toilet Transfer Goal Most Recent Value LTG Status new at 12/24/2019 0953 LTG [place] Level minimum assist (75% patient effort), verbal [...] Bed Mobility Supine to Sit, Level of [place]: moderate assist (50% patient effort) Sit to Supine, Level of [place]: moderate assist (50% patient effort) Safety Issues: decreased use of legs for bridging/pushing Impairments: strength decreased Transfers Sit-Stand, Level of [place]: moderate assist (50% patient effort) Stand-Sit, Level of [place]: moderate assist (50% patient effort) [id number]-Lsc, Assistive Device: other (see comments)(Up walker) Safety Issues: balance decreased during turns, step length decreased Impairments: strength decreased Gait Level of [place]: moderate assist (50% patient effort) Assistive Device: [...] LTG Status new at 12/23/2019 1600 LTG [place] Level supervised at 12/23/2019 1600 LTG Assistive Device none at 12/23/2019 1600 All Transfers Goal Most Recent Value LTG Status new at 12/23/2019 1600 LTG [place] Level modified independent at 12/23/2019 1600 LTG Assistive Device 2 wheeled walker (FWW) at 12/23/2019 1600 Gait Goal Most Recent Value LTG Status new at 12/23/2019 1600 LTG [place] Level stand by assist at 12/23/2019 1600 [...] Bed Mobility Supine to Sit, Level of [place]: moderate assist (50% patient effort) Safety Issues: decreased use of legs for bridging/pushing Impairments: strength decreased Transfers Sit-Stand, Level of [place]: moderate assist (50% patient effort) Stand-Sit, Level of [place]: moderate assist (50% patient effort) [id number]-[id number]-Twt, Assistive Device: other (see comments)(Up walker) Safety Issues: balance decreased during turns, step length decreased Impairments: strength decreased Gait Level of [place]: moderate assist (50% patient effort) Assistive Device: [...] LTG Status new at 12/23/2019 1600 LTG [place] Level supervised at 12/23/2019 1600 LTG Assistive Device none at 12/23/2019 1600 All Transfers Goal Most Recent Value LTG Status new at 12/23/2019 1600 LTG [place] Level modified independent at 12/23/2019 1600 LTG Assistive Device 2 wheeled walker (FWW) at 12/23/2019 1600 Gait Goal Most Recent Value LTG Status new at 12/23/2019 1600 LTG [place] Level stand by assist at 12/23/2019 1600 [...] HIGH Current Discharge Plan Anticipated Discharge Disposition: group home facility Expected DC Date: 12/30/2019 Barriers to Discharge: placement Steps Taken Toward Discharge: Attended morning rounds Next Steps: d/c to [facility] Swing Bed Community Support Services Current Outpt/Agency/Support Groups: none Community Agency Name: none Other Resources: Discharge Transportation Transportation Needs: agency transportation Notes: Pt not medically ready for discharge. Cm called Idalia CM at [facility] and updat ed her on Pt progress. Pt may be ready for d/c Monday. Cm will continue to follow for placem ent needs. Electronically signed: Ja Marcus RN 12/26/2019 11:46 AM lan of [facility] t - 12/26/2019 10:00 AM [...] Bed Mobility Sit to Supine, Level of [place]: maximal assist (25% patient effort), verbal cues requ ired Safety Issues: decreased use of legs for bridging/pushing, decreased use of arms for pushin g/pulling Impairments: strength decreased, pain, impaired balance Transfers Sit-Stand, Level of [place]: moderate assist (50% patient effort), verbal cues require d Stand-Sit, Level of [place]: moderate assist (50% patient effort), verbal cues require d Ryf-Vzzgf-Jor, Assistive Device: 2 wheeled walker (FWW), gait belt Safety Issues: sequencing ability decreased, balance decreased during turns Gait Level of [place]: moderate assist (50% patient effort) Assistive Device: [...] LTG Status new at 12/23/2019 1600 LTG [place] Level supervised at 12/23/2019 1600 LTG Assistive Device none at 12/23/2019 1600 All Transfers Goal Most Recent Value LTG Status new at 12/23/2019 1600 LTG [place] Level modified independent at 12/23/2019 1600 LTG Assistive Device 2 wheeled walker (FWW) at 12/23/2019 1600 Gait Goal Most Recent Value LTG Status new at 12/23/2019 1600 LTG [place] Level stand by assist at 12/23/2019 1600 [...] HIGH Current Discharge Plan Anticipated Discharge Disposition: group home facility Expected DC Date: 12/27/2019 Barriers to Discharge: placement Steps Taken Toward Discharge: Attended rounds Next Steps: d/c to [facility] Community Support Services Current Outpt/Agency/Support Groups: none Community Agency Name: none Other Resources: Discharge Transportation Transportation Needs: agency transportation Notes: Pt not medically ready for discharge. Cm received call from [facility] from [facility]. Pt has been accepted but wants Pt [...] HOB elevated Supine to Sit, Level of [place]: moderate assist (50% patient effort), verbal cues req uired Safety Issues: decreased use of legs for bridging/pushing, decreased use of arms for pushin g/pulling Impairments: strength decreased, pain, impaired balance Transfers Additional Documentation: sit to/from stand Chair-Bed, Level of [place]: moderate assist (50% patient effort), verbal cues require d Lmf-Vzqgv-Ors, Assistive Device: 2 wheeled walker (FWW) Sit-Stand, Level of [place]: moderate assist (50% patient effort), verbal cues require d Stand-Sit, Level of [place]: moderate assist (50% patient effort), verbal cues require d Jgj-Vrcze-Ykw, Assistive Device: 2 wheeled walker (FWW), gait belt Maintain Weight Bearing Status: able to maintain weight bearing status Safety Issues: sequencing ability decreased, balance decreased during turns Impairments: impaired balance, coordination impaired, pain, decreased flexibility Gait Gait Comments: 4 steps to chair Level of [place]: moderate assist (50% patient effort) Assistive Device: [...] LTG Status new at 12/23/2019 1600 LTG [place] Level supervised at 12/23/2019 1600 LTG Assistive Device none at 12/23/2019 1600 All Transfers Goal Most Recent Value LTG Status new at 12/23/2019 1600 LTG [place] Level modified independent at 12/23/2019 1600 LTG Assistive Device 2 wheeled walker (FWW) at 12/23/2019 1600 Gait Goal Most Recent Value LTG Status new at 12/23/2019 1600 LTG [place] Level stand by assist at 12/23/2019 1600 [...] long handled shoe horn, long handled sponge, potato seed cutter, sock aide(BSC (?)) Barriers to community-based discharge [...] seated in the recliner Grooming, Level of [place]: supervised Assistive Device: none Grooming Assess/Train, Position: sitting Bed Mobility Additional Documentation: supine to/from sit Assistive Device: HOB elevated, bed rails Sit to Supine, Level of [place]: maximal assist (25% patient effort), verbal cues [...] stand, bed to/from chair Chair-Bed, Level of [place]: moderate assist (50% patient effort), verbal cues require d Oes-Knrjw-Fhg, Assistive Device: gait belt Sit-Stand, Level of [place]: moderate assist (50% patient effort), verbal cues require d Stand-Sit, Level of [place]: moderate assist (50% patient effort), verbal cues require d Jjw-[id number]-Tjh, Assistive Device: 2 wheeled walker (FWW), gait [...] LTG Status new at 12/24/2019 0953 LTG [place] Level moderate assist (50% patient effort), verbal cues required at 12/23 0953 LTG Adaptive Equipment potato seed cutter, shoe horn, long handled, sock-aid [AE as needed] at 2019 0953 Toilet Transfer Goal Most Recent Value LTG Status new at 12/24/2019 0953 LTG [place] Level minimum assist (75% patient effort), verbal [...] HOB elevated Supine to Sit, Level of [place]: moderate assist (50% patient effort), verbal cues req uired Safety Issues: decreased use of arms for pushing/pulling, decreased use of legs for bridgin g/pushing Impairments: decreased flexibility, pain, impaired balance Transfers Additional Documentation: sit to/from stand Sit-Stand, Level of [place]: minimal assist (75% patient effort) Stand-Sit, Level of [place]: minimal assist (75% patient effort) Kld-Aamrm-Uxq, Assistive Device: 2 wheeled walker (FWW) Maintain Weight Bearing Status: able to maintain weight bearing status Safety Issues: sequencing ability decreased Impairments: decreased flexibility, impaired balance, pain Gait Gait Comments: side stepping to recliner Level of [place]: minimal assist (75% patient effort) Assistive Device: [...] LTG Status new at 12/23/2019 1600 LTG [place] Level supervised at 12/23/2019 1600 LTG Assistive Device none at 12/23/2019 1600 All Transfers Goal Most Recent Value LTG Status new at 12/23/2019 1600 LTG [place] Level modified independent at 12/23/2019 1600 LTG Assistive Device 2 wheeled walker (FWW) at 12/23/2019 1600 Gait Goal Most Recent Value LTG Status new at 12/23/2019 1600 LTG [place] Level stand by assist at 12/23/2019 1600 [...] manageable. Call light within reach. lan of aJ Parker RN - 12/23/2019 4:24 PM PDTCare [...] discharge planning concerns Services Anticipated at Discharge: group home facility Equipment Used at Home: cane, straight, single point, 2 wheeled walker (FWW) Equipment Needed after Discharge: walker, standard Durable Medical Equipment Provider: Pharmacy/Medication Needs: other (see comments)([facility] in [place], [place]) Transportation Needs: agency transportation Initial Plan Anticipated Discharge Disposition: group home facility Expected DC Date: other (see comments)(SNF [...] stated that he would like to go [facility] Swi ng bed if needed before going home. Cm called [facility] and received contact [facility] - Idalia Garduno [phone]. Cm sent referral to [facility]. Pt stated that Deanna (daughter) edgardo harmon [...] HOB elevated Supine to Sit, Level of [place]: moderate assist (50% patient effort) Sit to Supine, Level of [place]: maximal assist (25% patient effort) Safety Issues: decreased use of arms for pushing/pulling, decreased use of legs for bridgin g/pushing Impairments: decreased flexibility, impaired balance, pain Transfers Additional Documentation: sit to/from stand Sit-Stand, Level of [place]: minimal assist (75% patient effort) Stand-Sit, Level of [place]: minimal assist (75% patient effort) Jtn-Sdquc-Ptf, Assistive Device: 2 wheeled walker (FWW) Maintain [...] LTG Status new at 12/23/2019 1600 LTG [place] Level supervised at 12/23/2019 1600 LTG Assistive Device none at 12/23/2019 1600 All Transfers Goal Most Recent Value LTG Status new at 12/23/2019 1600 LTG [place] Level modified independent at 12/23/2019 1600 LTG Assistive Device 2 wheeled walker (FWW) at 12/23/2019 1600 Gait Goal Most Recent Value LTG Status new at 12/23/2019 1600 LTG [place] Level stand by assist at 12/23/2019 1600 [...] chart check complete. Electronically signed by Chasity Alstno RN at 2019 5:33 AM PDTPlan of [...] DO - 12/22/2019 10:34 AM [facility] [...] Melquiades Baez DO, 12/22/2019 10:[address] 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 EKG and Ches [...] day shift and every two hours on signal and communications maintainer to monitor and medicate appropriately. 2. Staff [...] | | | | | | [facility], | | | | | | [place] [address] | | | | | | [phone] | | | | | | | | +--------+---------+ + + + | 04/21/ | Office | Nephrology | Isiah Jade MD | | 2019 | Visit | | [address] [facility] | | | | | | [address] | | | | | | [address] | | | | | | | | +--------+---------+ + + + | 05/07/ | Office | Cardiology | Charlee Oswald | | | 2019 | Visit | | [address] | | | | | | [address] | | | | | | [place] [address] | | | | | | [phone] | | | | | | | [...] + +--------+ + + + | *TERMED* DE UPPER GI | Routin | 12/29/2019 | [...] | | | POC | performed at [facility];[address] | | LABORATORY | | | | [address];[place], [place] | | | | | | [address] | | | | + + + + + + + + | Specimen | + + | | + + + + + + + | Performing | Address | City/State/Zipcode | Phone Number | | Organization | | | | + + + + + | [facility] | [address] | [place] [address] | [phone] | + + + + + POC Glucose (01/01/2020 6:29 AM PDT) + + + + + + | Component | Value | Ref Range | Performed | Pathologist | | | | | At | Signature | + + + + + + | Glucose, | 143 (H)Comment: Testing | 65 - 99 mg/dL | [facility] | | | POC | performed at [facility];[address] | | LABORATORY | | | | [address];[place] | | | | | | [address] | | | | + + + + + + + + | Specimen | + + | | + + + + + + + | Performing | Address | City/State/Zipcode | Phone Number | | Organization | | | | + + + + + | [facility] | [address] | [place] [address] | [phone] | + + + + + Basic [...] | | | | | | [facility] traceable | | | | | | equation.Testing | | | | | | performed at [facility];[address] | | | | | | [facility];[place], [place] | | | | | | [address] | | | | + + + + + + + + | Specimen | + + | Blood | + + + + + + + | Performing | Address | City/State/Zipcode | Phone Number | | Organization | | | | + + + + + | [facility] | [address] | [place] [address] | [phone] | + + + + + CBC [...] | | | Absolute | performed at [facility];[address] | K/uL | LABORATORY | | | | [address];[place], [place] | | | | | | [address] | | | | + + + + + + + + | Specimen | + + | Blood | + + + + + + + | Performing | Address | City/State/Zipcode | Phone Number | | Organization | | | | + + + + + | [facility] | [address] | [place] [address] | [phone] | + + + + + POC Glucose (12/31/2019 9:02 PM PDT) + + + + + + | Component | Value | Ref Range | Performed | Pathologist | | | | | At | Signature | + + + + + + | Glucose, | 137 (H)Comment: Testing | 65 - 99 mg/dL | [facility] | | | POC | performed at [facility];[address] | | LABORATORY | | | | [address];[place] | | | | | | [address] | | | | + + + + + + + + | Specimen | + + | | + + + + + + + | Performing | Address | City/State/Zipcode | Phone Number | | Organization | | | | + + + + + | [facility] | [address] | [place] [address] | [phone] | + + + + + POC Glucose (12/31/2019 5:31 PM PDT) + + + + + + | Component | Value | Ref Range | Performed | Pathologist | | | | | At | Signature | + + + + + + | Glucose, | 196 (H)Comment: Testing | 65 - 99 mg/dL | [facility] | | | POC | performed at [facility];[address] | | LABORATORY | | | | [address];[place] | | | | | | [address] | | | | + + + + + + + + | Specimen | + + | | + + + + + + + | Performing | Address | City/State/Zipcode | Phone Number | | Organization | | | | + + + + + | [facility] | [address] | [place] [address] | [phone] | + + + + + POC [...] | | | POC | performed at [facility];[address] | | LABORATORY | | | | [address];[place], [place] | | | | | | [address] | | | | + + + + + + + + | Specimen | + + | | + + + + + + + | Performing | Address | City/State/Zipcode | Phone Number | | Organization | | | | + + + + + | [facility] | [address] | [place] [address] | [phone] | + + + + + POC [...] | | | POC | performed at [facility];[address] | | LABORATORY | | | | [address];[place] | | | | | | [address] | | | | + + + + + + + + | Specimen | + + | | + + + + + + + | Performing | Address | City/State/Zipcode | Phone Number | | Organization | | | | + + + + + | [facility] | [address] | [place] [address] | [phone] | + + + + + Basic [...] | 8.5 | 8.5 - 10.5 | [facility] | | | | | mg/dL | LABORATORY | | + + + + + + | Estimated | 18 (L)Comment: GFR <60: | >60 | [facility] | | | GFR | CHRONIC [...] | | | | | performed at [facility], [address] | | | | | | [facility], | | | | | | [place] [address] | | | | + + + + + + + + | Specimen | + + | Blood | + + + + + + + | Performing | Address | City/State/Zipcode | Phone Number | | Organization | | | | + + + + + | [facility] | [address] | [place] [address] | [phone] | + + + + + CBC [...] | | | Absolute | performed at [facility], [address] | K/uL | LABORATORY | | | | [address], | | | | | | [place] [address] | | | | + + + + + + + + | Specimen | + + | Blood | + + + + + + + | Performing | Address | City/State/Zipcode | Phone Number | | Organization | | | | + + + + + | [facility] | [address] | [place] [address] | [phone] | + + + + + POC Glucose (12/30/2019 8:55 PM PDT) + + + + + + | Component | Value | Ref Range | Performed | Pathologist | | | | | At | Signature | + + + + + + | Glucose, | 192 (H)Comment: Testing | 65 - 99 mg/dL | [facility] | | | POC | performed at [facility];[address] | | LABORATORY | | | | [address];[place] | | | | | | [address] | | | | + + + + + + + + | Specimen | + + | | + + + + + + + | Performing | Address | City/State/Zipcode | Phone Number | | Organization | | | | + + + + + | [facility] | [address] | [place] [address] | [phone] | + + + + + POC Glucose (12/30/2019 4:11 PM PDT) + + + + + + | Component | Value | Ref Range | Performed | Pathologist | | | | | At | Signature | + + + + + + | Glucose, | 130 (H)Comment: Testing | 65 - 99 mg/dL | [facility] | | | POC | performed at [facility];[address] | | LABORATORY | | | | [address];[place], [place] | | | | | | [address] | | | | + + + + + + + + | Specimen | + + | | + + + + + + + | Performing | Address | City/State/Zipcode | Phone Number | | Organization | | | | + + + + + | [facility] | [address] | [place] [address] | [phone] | + + + + + POC [...] | | | POC | performed at [facility];[address] | | LABORATORY | | | | [address];[place], [place] | | | | | | [address] | | | | + + + + + + + + | Specimen | + + | | + + + + + + + | Performing | Address | City/State/Zipcode | Phone Number | | Organization | | | | + + + + + | [facility] | [address] | [place] [address] | [phone] | + + + + + Basic [...] 20 (L)Comment: GFR <60: | >60 | [facility] | | | GFR | CHRONIC [...] | | | | | | [facility] traceable | | | | | | equation.Testing | | | | | | performed at [facility];[address] | | | | | | [facility];[place], [place] | | | | | | [address] | | | | + + + + + + + + | Specimen | + + | Blood | + + + + + + + | Performing | Address | City/State/Zipcode | Phone Number | | Organization | | | | + + + + + | [facility] | [address] | [place] [address] | [phone] | + + + + + POC Glucose (12/30/2019 6:04 AM PDT) + + + + + + | Component | Value | Ref Range | Performed | Pathologist | | | | | At | Signature | + + + + + + | Glucose, | 103 (H)Comment: Testing | 65 - 99 mg/dL | [facility] | | | POC | performed at [facility];[address] | | LABORATORY | | | | [address];[place] | | | | | | [address] | | | | + + + + + + + + | Specimen | + + | | + + + + + + + | Performing | Address | City/State/Zipcode | Phone Number | | Organization | | | | + + + + + | [facility] | [address] | [place] [address] | [phone] | + + + + + CBC [...] | | | Absolute | performed at [facility];[address] | K/uL | LABORATORY | | | | [address];[place], [place] | | | | | | [address] | | | | + + + + + + + + | Specimen | + + | Blood | + + + + + + + | Performing | Address | City/State/Zipcode | Phone Number | | Organization | | | | + + + + + | [facility] | [address] [address] | [place] [address] | [phone] | + + + + + POC Glucose (12/29/2019 11:56 PM PDT) + + + + + + | Component | Value | Ref Range | Performed | Pathologist | | | | | At | Signature | + + + + + + | Glucose, | 109 (H)Comment: Testing | 65 - 99 mg/dL | [facility] | | | POC | performed at [facility];[address] | | LABORATORY | | | | [address];[place] | | | | | | [address] | | | | + + + + + + + + | Specimen | + + | | + + + + + + + | Performing | Address | City/State/Zipcode | Phone Number | | Organization | | | | + + + + + | [facility] | [address] | [place] [address] | [phone] | + + + + + Hemoglobin [...] [facility] | | | | performed at [facility];[address] | | LABORATORY | | | | [address];[place], [place] | | | | | | [address] | | | | + + + + + + + + | Specimen | + + | Blood | + + + + + + + | Performing | Address | City/State/Zipcode | Phone Number | | Organization | | | | + + + + + | [facility] | [address] | [place] [address] | [phone] | + + + + + POC Glucose (12/29/2019 6:06 PM PDT) + + + + + + | Component | Value | Ref Range | Performed | Pathologist | | | | | At | Signature | + + + + + + | Glucose, | 128 (H)Comment: Testing | 65 - 99 mg/dL | [facility] | | | POC | performed at [facility];[address] | | LABORATORY | | | | [address];[place] | | | | | | [address] | | | | + + + + + + + + | Specimen | + + | | + + + + + + + | Performing | Address | City/State/Zipcode | Phone Number | | Organization | | | | + + + + + | [facility] | [address] | [place] [address] | [phone] | + + + + + Hemoglobin [...] [facility] | | | | performed at [facility];[address] | | LABORATORY | | | | [address];[place] | | | | | | [address] | | | | + + + + + + + + | Specimen | + + | Blood | + + + + + + + | Performing | Address | City/State/Zipcode | Phone Number | | Organization | | | | + + + + + | [facility] | [address] [facility] | [place] [address] | [phone] | + + + + + POC Glucose (12/29/2019 11:43 AM PDT) + + + + + + | Component | Value | Ref Range | Performed | Pathologist | | | | | At | Signature | + + + + + + | Glucose, | 191 (H)Comment: Testing | 65 - 99 mg/dL | [facility] | | | POC | performed at [facility];[address] | | LABORATORY | | | | [address];[place] | | | | | | [address] | | | | + + + + + + + + | Specimen | + + | | + + + + + + + | Performing | Address | City/State/Zipcode | Phone Number | | Organization | | | | + + + + + | [facility] | [address] | [place] [address] | [phone] | + + + + + POC Glucose (12/29/2019 11:06 AM PDT) + + + + + + | Component | Value | Ref Range | Performed | Pathologist | | | | | At | Signature | + + + + + + | Glucose, | 205 (H)Comment: Testing | 65 - 99 mg/dL | [facility] | | | POC | performed at [facility];[address] | | LABORATORY | | | | [address];[place], [place] | | | | | | [address] | | | | + + + + + + + + | Specimen | + + | | + + + + + + + | Performing | Address | City/State/Zipcode | Phone Number | | Organization | | | | + + + + + | [facility] | [address] | [place] [address] | [phone] | + + + + + Surgical [...] | | technical component was performed by [facility], [address] [place] [address] | | [place] [address] ([employer]: Padmini Sellers MD; CLIA# | | | [id number]). Professional interpretation was performed by[facility] [employer] | | | [employer], | | | [place] [address] (Orange [employer]er: Oscar Maynard M.D.; CLIA#: | | | [id number]). Diagnostician: Padmini Sellers | | | MDPathologistElectronically [...] | |The technical component was performed by [facility], [address] [place] [address] ([employer]er: Padmini Sellers MD; CLIA# [id number]). Professional interpretation was performed by | | |[facility], [address] [address] ([employer]ange [employer]er: Oscar Maynard M.D.; CLIA#: [id number]). | | | | | |Diagnostician: Padmini [...] Performed At | + + + | [facility] | [facility] | | [facility] | [facility] | | CenterGastroenterology | | | Patient Name: Andres Guzmán | | | Procedure Date: 12/29/2019 8:36 AMMRN: [id number] | | | of : 1930 | [...] the anesthesiologist and the | | | photo technician in the pre-procedure area in the [...] | | | with Gold probe 7 [place] x 5 pulses was successful with | [...] | | | AMNumber of Addenda: 0 [facility] | | | - Check hemoglobin q 6 hours for one day. | | | | | | | | |LAMONT HERNANDEZ MD | | |12/29/2019 10:19:54 AM | | |This report has been signed electronically. | | | | | |Note Initiated On: 12/29/2019 8:36 AM | | |Number of Addenda: 0 | | | | | | [facility] | | + + + + +---------+ + + | Performing | Address | City/State/[facility] | Phone Number | | Organization [...] [facility] | | | | performed at [facility];[address] | | LABORATORY | | | | [address];[place], [place] | | | | | | [address] | | | | + + + + + + + + | Specimen | + + | Blood | + + + + + + + | Performing | Address | City/State/Zipcode | Phone Number | | Organization | | | | + + + + + | [facility] | [address] | [place] [address] | [phone] | + + + + + POC Glucose (12/29/2019 6:06 AM PDT) + + + + + + | Component | Value | Ref Range | Performed | Pathologist | | | | | At | Signature | + + + + + + | Glucose, | 146 (H)Comment: Testing | 65 - 99 mg/dL | [facility] | | | POC | performed at [facility];[address] | | LABORATORY | | | | [address];[place] | | | | | | [address] | | | | + + + + + + + + | Specimen | + + | | + + + + + + + | Performing | Address | City/State/Zipcode | Phone Number | | Organization | | | | + + + + + | [facility] | [address] | [place] [address] | [phone] | + + + + + CBC [...] | | | Absolute | performed at [facility];[address] | K/uL | LABORATORY | | | | [address];[place] | | | | | | [address] | | | | + + + + + + + + | Specimen | + + | Blood | + + + + + + + | Performing | Address | City/State/Zipcode | Phone Number | | Organization | | | | + + + + + | [facility] | [address] | [place] [address] | [phone] | + + + + + Shine [...] | | | | | performed at [facility] | | | | | | [address];[place], [place] | | | | | | [address] | | | | + + + + + + + + | Specimen | + + | Blood | + + + + + + + | Performing | Address | City/State/Zipcode | Phone Number | | Organization | | | | + + + + + | [facility] | [address] | [place] [address] | [phone] | + + + + + Basic [...] 20 (L)Comment: GFR <60: | >60 | [facility] | | | GFR | CHRONIC [...] | | | | | | MDRD IDMD traceable | | | | | | equation.Testing | | | | | | performed at [facility];[address] | | | | | | [facility];[place], [place] | | | | | | [address] | | | | + + + + + + + + | Specimen | + + | Blood | + + + + + + + | Performing | Address | City/State/Zipcode | Phone Number | | Organization | | | | + + + + + | [facility] | [address] | [place] [address] | [phone] | + + + + + POC Glucose (12/28/2019 11:27 PM PDT) + + + + + + | Component | Value | Ref Range | Performed | Pathologist | | | | | At | Signature | + + + + + + | Glucose, | 192 (H)Comment: Testing | 65 - 99 mg/dL | [facility] | | | POC | performed at [facility];[address] | | LABORATORY | | | | [address];[place] | | | | | | [address] | | | | + + + + + + + + | Specimen | + + | | + + + + + + + | Performing | Address | City/State/Zipcode | Phone Number | | Organization | | | | + + + + + | [facility] | [address] | [place] [address] | [phone] | + + + + + Hemoglobin [...] [facility] | | | | performed at [facility];[address] | | LABORATORY | | | | [address];[place] | | | | | | [address] | | | | + + + + + + + + | Specimen | + + | Blood | + + + + + + + | Performing | Address | City/State/Zipcode | Phone Number | | Organization | | | | + + + + + | [facility] | [address] | [place] [address] | [phone] | + + + + + POC [...] | | | POC | performed at [facility];[address] | | LABORATORY | | | | [address];[place], [place] | | | | | | [address] | | | | + + + + + + + + | Specimen | + + | | + + + + + + + | Performing | Address | City/State/Zipcode | Phone Number | | Organization | | | | + + + + + | [facility] | [address] | [place] [address] | [phone] | + + + + + Fecal [...] [address];[place] [address] | | | | + + + + + + + + | Specimen | + + | Stool - Stool | | specimen (specimen) | + + + + + + + | Performing | Address | City/State/Zipcode | Phone Number | | Organization | | | | + + + + + | [facility] | [address] | [place] [address] | [phone] | + + + + + POC [...] | | | POC | performed at [facility];[address] | | LABORATORY | | | | [address];[place] | | | | | | [address] | | | | + + + + + + + + | Specimen | + + | | + + + + + + + | Performing | Address | City/State/Zipcode | Phone Number | | Organization | | | | + + + + + | [facility] | [address] | [place] [address] | [phone] | + + + + + Hemoglobin [...] [facility] | | | | performed at [facility];[address] | | LABORATORY | | | | [address];[place] | | | | | | [address] | | | | + + + + + + + + | Specimen | + + | Blood | + + + + + + + | Performing | Address | City/State/Zipcode | Phone Number | | Organization | | | | + + + + + | [facility] | [address] [facility] | [place] [address] | [phone] | + + + + + POC [...] | | | POC | performed at [facility];[address] | | LABORATORY | | | | [address];[place] | | | | | | [address] | | | | + + + + + + + + | Specimen | + + | | + + + + + + + | Performing | Address | City/State/Zipcode | Phone Number | | Organization | | | | + + + + + | [facility] | [address] | [place] [address] | [phone] | + + + + + POC Glucose (12/28/2019 7:03 AM PDT) + + + + + + | Component | Value | Ref Range | Performed | Pathologist | | | | | At | Signature | + + + + + + | Glucose, | 153 (H)Comment: Testing | 65 - 99 mg/dL | [facility] | | | POC | performed at [facility];[address] | | LABORATORY | | | | [address];[place] | | | | | | [address] | | | | + + + + + + + + | Specimen | + + | | + + + + + + + | Performing | Address | City/State/Zipcode | Phone Number | | Organization | | | | + + + + + | [facility] | [address] | [place] [address] | [phone] | + + + + + CBC [...] | | | Absolute | performed at [facility], [address] | K/uL | LABORATORY | | | | [address], | | | | | | [place] [address] | | | | + + + + + + + + | Specimen | + + | Blood | + + + + + + + | Performing | Address | City/State/Zipcode | Phone Number | | Organization | | | | + + + + + | [facility] | [address] | [place] [address] | [phone] | + + + + + Basic [...] 16 (L)Comment: GFR <60: | >60 | [facility] | | | GFR | CHRONIC [...] | | | | | performed at [facility], [address] | | | | | | [facility], | | | | | | [place] [address] | | | | + + + + + + + + | Specimen | + + | Blood | + + + + + + + | Performing | Address | City/State/Zipcode | Phone Number | | Organization | | | | + + + + + | [facility] | [address] | [place] [address] | [phone] | + + + + + POC Glucose (12/27/2019 8:44 PM PDT) + + + + + + | Component | Value | Ref Range | Performed | Pathologist | | | | | At | Signature | + + + + + + | Glucose, | 191 (H)Comment: Testing | 65 - 99 mg/dL | [facility] | | | POC | performed at [facility];[address] | | LABORATORY | | | | [address];[place] | | | | | | [address] | | | | + + + + + + + + | Specimen | + + | | + + + + + + + | Performing | Address | City/State/Zipcode | Phone Number | | Organization | | | | + + + + + | [facility] | [address] | [place] [address] | [phone] | + + + + + POC Glucose (12/27/2019 3:30 PM PDT) + + + + + + | Component | Value | Ref Range | Performed | Pathologist | | | | | At | Signature | + + + + + + | Glucose, | 156 (H)Comment: Testing | 65 - 99 mg/dL | [facility] | | | POC | performed at [facility];[address] | | LABORATORY | | | | [address];[place], [place] | | | | | | [address] | | | | + + + + + + + + | Specimen | + + | | + + + + + + + | Performing | Address | City/State/Zipcode | Phone Number | | Organization | | | | + + + + + | [facility] | [address] | [place] [address] | [phone] | + + + + + Red [...] | | LABORATORY | | | | [address];[place] [address] | | | | + + + + + + + + | Specimen | + + | | + + + + + + + | Performing | Address | City/State/Zipcode | Phone Number | | Organization | | | | + + + + + | [facility] | [address] | [place] [address] | [phone] | + + + + + Type [...] + + + | BB BAND | [id number] | | [facility] | | | | | | LABORATORY | | + + + + + + | UNIT # | [id number] | | [facility] | | | | [...] + + + | UNIT # | [id number] | | [facility] | | | | [...] | | | RESULT | performed at [facility];[address] | | LABORATORY | | | | [address];[place] | | | | | | [address] | | | | + + + + + + + + | Specimen | + + | Blood | + + + + + + + | Performing | Address | City/State/Zipcode | Phone Number | | Organization | | | | + + + + + | [facility] | [address] | [place] [address] | [phone] | + + + + + POC [...] | | | POC | performed at [facility];[address] | | LABORATORY | | | | [address];[place] | | | | | | [address] | | | | + + + + + + + + | Specimen | + + | | + + + + + + + | Performing | Address | City/State/Zipcode | Phone Number | | Organization | | | | + + + + + | [facility] | [address] | [place] [address] | [phone] | + + + + + CBC [...] 0.02Comment: Testing | 0.00 - 0.10 | [facility] | | | Absolute | performed at [facility], [address] | K/uL | LABORATORY | | | | [address], | | | | | | [place] [address] | | | | + + + + + + + + | Specimen | + + | | + + + + + + + | Performing | Address | City/State/Zipcode | Phone Number | | Organization | | | | + + + + + | [facility] | [address] | [place] [address] | [phone] | + + + + + Procalcitonin [...] | | | | | | at [facility];[address] [place] [address] | | | | | | [facility];[place] [address] | | | | + + + + + + + + | Specimen | + + | Blood | + + + + + + + | Performing | Address | City/State/Zipcode | Phone Number | | Organization | | | | + + + + + | [facility] | [address] | [place] [address] | [phone] | + + + + + Basic [...] 13 (L)Comment: GFR <60: | >60 | [facility] | | | GFR | CHRONIC [...] | | | | | | MDRD IDMD traceable | | | | | | equation.Testing | | | | | | performed at [facility], [address] | | | | | | [facility], | | | | | | [place] [address] | | | | + + + + + + + + | Specimen | + + | Blood | + + + + + + + | Performing | Address | City/State/Zipcode | Phone Number | | Organization | | | | + + + + + | [facility] | [address] | [place] [address] | [phone] | + + + + + Vitamin D, Deficiency Screen (25-Hydroxy) (12/27/2019 5:04 AM PDT) + + + + + + | Component | Value | Ref Range | Performed | Pathologist | | | | | At | Signature | + + + + + + | Vit D, | 25.2 (L)Comment: Vitamin | 30.0 - 100.0 | [facility] | | | 25-Hydroxy | D deficiency has been | ng/mL | LABORATORY | | | | defined by the [place] | | | | | | [facility] and an | | | | [...] IOM | | | | | | ([facility] [place] [facility]). | | | | | [...] | | | | | performed at [facility] | | | | | | [address], | | | | | | [facility] [address] | | | | + + + + + + + + | Specimen | + + | Blood | + + + + + + + | Performing | Address | City/State/[facility] | Phone Number | | Organization | | | | + + + + + | [facility] | [address] | [place] [address] | [phone] | + + + + + Potassium (12/27/2019 12:08 AM PDT) + + + + + + | Component | Value | Ref Range | Performed | Pathologist | | | | | At | Signature | + + + + + + | K | 4.0Comment: Testing | 3.5 - 4.9 | [facility] | | | | performed at [facility];[address] | mmol/L | LABORATORY | | | | [address];[place] | | | | | | [address] | | | | + + + + + + + + | Specimen | + + | Blood | + + + + + + + | Performing | Address | City/State/Zipcode | Phone Number | | Organization | | | | + + + + + | [facility] | [address] | [place] [address] | [phone] | + + + + + Magnesium (12/27/2019 12:08 AM PDT) + + + + + + | Component | Value | Ref Range | Performed | Pathologist | | | | | At | Signature | + + + + + + | Magnesium | 2.2Comment: Testing | 1.7 - 2.4 mg/dL | [facility] | | | | performed at [facility];[address] | | LABORATORY | | | | [address];[place] | | | | | | [address] | | | | + + + + + + + + | Specimen | + + | Blood | + + + + + + + | Performing | Address | City/State/Zipcode | Phone Number | | Organization | | | | + + + + + | [facility] | [address] | [place] [address] | [phone] | + + + + + ECG [...] | | | POC | performed at [facility];[address] | | LABORATORY | | | | [address];[place] | | | | | | [address] | | | | + + + + + + + + | Specimen | + + | | + + + + + + + | Performing | Address | City/State/Zipcode | Phone Number | | Organization | | | | + + + + + | [facility] | [address] | [place] [address] | [phone] | + + + + + POC [...] | | | POC | performed at [facility];[address] | | LABORATORY | | | | [address];[place], [place] | | | | | | [address] | | | | + + + + + + + + | Specimen | + + | | + + + + + + + | Performing | Address | City/State/Zipcode | Phone Number | | Organization | | | | + + + + + | [facility] | [address] | [place] [address] | [phone] | + + + + + Complement [...] | | | COMPLEMENT | performed at [facility] [facility] | | LABORATORY | | | | [address], | | | | | | [facility] [address] | | | | + + + + + + + + | Specimen | + + | | + + + + + + + | Performing | Address | City/State/Zipcode | Phone Number | | Organization | | | | + + + + + | [facility] | [address] | [place] [address] | [phone] | + + + + + Complement C3 Ag (12/26/2019 12:33 PM PDT) + + + + + + | Component | Value | Ref Range | Performed | Pathologist | | | | | At | Signature | + + + + + + | C3 | 53 (L)Comment: Testing | 82 - 167 mg/dL | [facility] | | | COMPLEMENT | performed at [facility] | | LABORATORY | | | | [address], | | | | | | [facility] [address] | | | | + + + + + + + + | Specimen | + + | | + + + + + + + | Performing | Address | City/State/Zipcode | Phone Number | | Organization | | | | + + + + + | [facility] | [address] | [place] [address] | [phone] | + + + + + POC Glucose (12/26/2019 11:15 AM PDT) + + + + + + | Component | Value | Ref Range | Performed | Pathologist | | | | | At | Signature | + + + + + + | Glucose, | 161 (H)Comment: Testing | 65 - 99 mg/dL | [facility] | | | POC | performed at [facility];[address] | | LABORATORY | | | | [address];[place] | | | | | | [address] | | | | + + + + + + + + | Specimen | + + | | + + + + + + + | Performing | Address | City/State/Zipcode | Phone Number | | Organization | | | | + + + + + | [facility] | [address] | [place] [address] | [phone] | + + + + + POC [...] | | | POC | performed at [facility];[address] | | LABORATORY | | | | [address];[place], [place] | | | | | | [address] | | | | + + + + + + + + | Specimen | + + | | + + + + + + + | Performing | Address | City/State/Zipcode | Phone Number | | Organization | | | | + + + + + | [facility] | [address] | [place] [address] | [phone] | + + + + + Parathyroid Hormone, Intraoperative (12/26/2019 4:25 AM PDT) + + + + + + | Component | Value | Ref Range | Performed | Pathologist | | | | | At | Signature | + + + + + + | PTH Intact | 167.0 (H)Comment: | 8.7 - 79.6 | [facility] | | | | Testing performed at | pg/mL | LABORATORY | | | | [facility];[address];[place] [address] | | | | + + + + + + + + | Specimen | + + | | + + + + + + + | Performing | Address | City/State/Zipcode | Phone Number | | Organization | | | | + + + + + | [facility] | [address] | [place] [address] | [phone] | + + + + + Renal [...] | | | | | performed at [facility], [address] | | | | | [address], | | | | | | [place] [address] | | | | + + + + + + + + | Specimen | + + | Blood | + + + + + + + | Performing | Address | City/State/Zipcode | Phone Number | | Organization | | | | + + + + + | [facility] | [address] | [place] [address] | [phone] | + + + + + POC [...] | | | POC | performed at [facility];[address] | | LABORATORY | | | | [address];[place], [place] | | | | | | [address] | | | | + + + + + + + + | Specimen | + + | | + + + + + + + | Performing | Address | City/State/Zipcode | Phone Number | | Organization | | | | + + + + + | [facility] | [address] | [place] [address] | [phone] | + + + + + POC [...] | | | POC | performed at [facility];[address] | | LABORATORY | | | [address];[place] | | | | | | [address] | | | | + + + + + + + + | Specimen | + + | | + + + + + + + | Performing | Address | City/State/Zipcode | Phone Number | | Organization | | | | + + + + + | [facility] | [address] | [place] [address] | [phone] | + + + + + ECHO [...] | | | POC | performed at [facility];[address] | | LABORATORY | | | | [address];[place], [place] | | | | | | [address] | | | | + + + + + + + + | Specimen | + + | | + + + + + + + | Performing | Address | City/State/Zipcode | Phone Number | | Organization | | | | + + + + + | [facility] | [address] | [place] [address] | [phone] | + + + + + POC Glucose (12/25/2019 7:56 AM PDT) + + + + + + | Component | Value | Ref Range | Performed | Pathologist | | | | | At | Signature | + + + + + + | Glucose, | 136 (H)Comment: Testing | 65 - 99 mg/dL | [facility] | | | POC | performed at [facility];[address] | | LABORATORY | | | | [address];[place] | | | | | | [address] | | | | + + + + + + + + | Specimen | + + | | + + + + + + + | Performing | Address | City/State/Zipcode | Phone Number | | Organization | | | | + + + + + | [facility] | [address] | [place] [address] | [phone] | + + + + + CK Total (12/25/2019 4:25 AM PDT) + + + + + + | Component | Value | Ref Range | Performed | Pathologist | | | | | At | Signature | + + + + + + | CK TOTAL | 104Comment: Testing | 55 - 400 U/L | [facility] | | | | performed at [facility];[address] | | LABORATORY | | | | [address];[place] | | | | | | [address] | | | | + + + + + + + + | Specimen | + + | Blood | + + + + + + + | Performing | Address | City/State/Zipcode | Phone Number | | Organization | | | | + + + + + | [facility] | [address] | [place] [address] | [phone] | + + + + + Renal [...] | | | | | | MDRD IDMD traceable | | | | | | equation.Testing | | | | | | performed at [facility], [address] | | | | | | [facility], | | | | | | [place] [address] | | | | + + + + + + + + | Specimen | + + | Blood | + + + + + + + | Performing | Address | City/State/Zipcode | Phone Number | | Organization | | | | + + + + + | [facility] | [address] | [place] [address] | [phone] | + + + + + Cytoplasmic [...] | | | | | with both DE-3 and | | | | | | [...] | | | | | performed by [facility], | | | | | | [address], | | | | | | [facility] [address] | | | | + + + + + + + + | Specimen | + + | Blood | + + + + + + + | Performing | Address | City/State/Zipcode | Phone Number | | Organization | | | | + + + + + | [facility] | [address] | [place] [address] | [phone] | + + + + + Sedimentation Rate (12/25/2019 4:22 AM PDT) + + + + + + | Component | Value | Ref Range | Performed | Pathologist | | | | | At | Signature | + + + + + + | ESR | 6Comment: Testing | 0 - 20 mm/Hr | [facility] | | | | performed at [facility], [address] | | LABORATORY | | | | [address], | | | | | | [place] [address] | | | | + + + + + + + + | Specimen | + + | Blood | + + + + + + + | Performing | Address | City/State/Zipcode | Phone Number | | Organization | | | | + + + + + | [facility] | [address] | [place] [address] | [phone] | + + + + + Immunoglobulin, Free Light Chain (12/25/2019 4:22 AM PDT) + + + + + + | Component | Value | Ref Range | Performed | Pathologist | | | | | At | Signature | + + + + + + | Addis Free | 121.2 (H) | 3.3 - [...] + + + + + + | Addis/Lambd | 1.25Comment: Testing | 0.26 - 1.65 | [facility] | | | a Free | performed at [facility] | | LABORATORY | | | Light Chain | [place], [address] | | | | | Ratio | [place] [address] | | | | + + + + + + + + | Specimen | + + | Blood | + + + + + + + | Performing | Address | City/State/Zipcode | Phone Number | | Organization | | | | + + + + + | [facility] | [address] | [place] [address] | [phone] | + + + + + Glomerular Basement Membrane Ab, IgG (12/25/2019 4:22 AM PDT) + + + + + + | Component | Value | Ref Range | Performed | Pathologist | | | | | At | Signature | + + + + + + | Antiglomeru | 2Comment: | 0 - 20 units | [facility] | | | lar BM Ab, [...] | | | | | [address], [address] | | | | | | [place] | | | | | | [address] | | | | + + + + + + + + | Specimen | + + | Blood | + + + + + + + | Performing | Address | City/State/Zipcode | Phone Number | | Organization | | | | + + + + + | [facility] | [address] | [place] [address] | [phone] | + + + + + Hepatitis [...] | | | | | 0.9The [facility] recommends | | | | | | that a positive HCV | | | | | | antibody resultbe | | | | | | followed up with a HCV | | | | | | Nucleic Acid | | | | | | Amplificationtest | | | | | | ([id number]).Testing | | | | | | performed at [facility] | | | | | | [address], | | | | | | [facility] [address] | | | | + + + + + + + + | Specimen | + + | Blood | + + + + + + + | Performing | Address | City/State/Zipcode | Phone Number | | Organization | | | | + + + + + | [facility] | [address] | [place] [address] | [phone] | + + + + + CK Total (12/25/2019 4:22 AM PDT) + + + + + + | Component | Value | Ref Range | Performed | Pathologist | | | | | At | Signature | + + + + + + | CK TOTAL | 100Comment: Testing | 55 - 400 U/L | [facility] | | | | performed at [facility];[address] | | LABORATORY | | | | [address];[place] | | | | | | [address] | | | | + + + + + + + + | Specimen | + + | Blood | + + + + + + + | Performing | Address | City/State/Zipcode | Phone Number | | Organization | | | | + + + + + | [facility] | [address] | [place] [address] | [phone] | + + + + + Lactate Dehydrogenase (12/25/2019 4:22 AM PDT) + + + + + + | Component | Value | Ref Range | Performed | Pathologist | | | | | At | Signature | + + + + + + | LDH TOTAL | 154Comment: Testing | 120 - 246 U/L | [facility] | | | | performed at [facility];[address] | | LABORATORY | | | | [address];[place] | | | | | | [address] | | | | + + + + + + + + | Specimen | + + | Blood | + + + + + + + | Performing | Address | City/State/Zipcode | Phone Number | | Organization | | | | + + + + + | [facility] | [address] | [place] [address] | [phone] | + + + + + Magnesium (12/25/2019 4:22 AM PDT) + + + + + + | Component | Value | Ref Range | Performed | Pathologist | | | | | At | Signature | + + + + + + | Magnesium | 2.5 (H)Comment: Testing | 1.7 - 2.4 mg/dL | [facility] | | | | performed at [facility], [address] | | LABORATORY | | | | [address], | | | | | | [place] [address] | | | | + + + + + + + + | Specimen | + + | Blood | + + + + + + + | Performing | Address | City/State/Zipcode | Phone Number | | Organization | | | | + + + + + | [facility] | [address] | [place] [address] | [phone] | + + + + + Protein, [...] LABORATORY | | | | performed at [facility], [address] | | | | | [address], | | | | | | [place] [address] | | | | + + + + + + + + | Specimen | + + | | + + + + + + + | Performing | Address | City/State/Zipcode | Phone Number | | Organization | | | | + + + + + | [facility] | [address] | [place] [address] | [phone] | + + + + + Creatinine, [...] | | | urine | performed at [facility], [address] | | | | | | [address], | | | | | | [place] [address] | | | | + + + + + + + + | Specimen | + + | | + + + + + + + | Performing | Address | City/State/Zipcode | Phone Number | | Organization | | | | + + + + + | [facility] | [address] [facility] | [place] [address] | [phone] | + + + + + Protein/Creatinine Ratio, Urine (12/25/2019 12:01 AM PDT) + + + + + + | Component | Value | Ref Range | Performed | Pathologist | | | | | At | Signature | + + + + + + | PRO/CREA | 0.942Comment: Testing | | [facility] | | | RATIO,URINE | performed at [facility], [address] | | LABORATORY | | | | [address], | | | | | | [place] [address] | | | | + + + + + + + + | Specimen | + + | Urine | + + + + + + + | Performing | Address | City/State/Zipcode | Phone Number | | Organization | | | | + + + + + | [facility] | [address] | [place] [address] | [phone] | + + + + + POC Glucose (12/24/2019 8:55 PM PDT) + + + + + + | Component | Value | Ref Range | Performed | Pathologist | | | | | At | Signature | + + + + + + | Glucose, | 149 (H)Comment: Testing | 65 - 99 mg/dL | [facility] | | | POC | performed at [facility];[address] | | LABORATORY | | | | [address];[place] | | | | | | [address] | | | | + + + + + + + + | Specimen | + + | | + + + + + + + | Performing | Address | City/State/Zipcode | Phone Number | | Organization | | | | + + + + + | [facility] | [address] | [place] [address] | [phone] | + + + + + POC Glucose (12/24/2019 5:14 PM PDT) + + + + + + | Component | Value | Ref Range | Performed | Pathologist | | | | | At | Signature | + + + + + + | Glucose, | 136 (H)Comment: Testing | 65 - 99 mg/dL | [facility] | | | POC | performed at [facility];[address] | | LABORATORY | | | | [address];[place] | | | | | | [address] | | | | + + + + + + + + | Specimen | + + | | + + + + + + + | Performing | Address | City/State/Zipcode | Phone Number | | Organization | | | | + + + + + | [facility] | [address] | [place] [address] | [phone] | + + + + + ECG [...] | | | Arterial, | performed at [facility];[address] | | LABORATORY | | | POC | [facility], [place] | | | | | | [address] | | | | + + + + + + + + | Specimen | + + | | + + + + + + + | Performing | Address | City/State/Zipcode | Phone Number | | Organization | | | | + + + + + | [facility] | [address] | [place] [address] | [phone] | + + + + + Coronavirus (COVID-19) NAAT (12/24/2019 1:10 PM PDT) + + + + + + | Component | Value | Ref Range | Performed | Pathologist | | | | | At | Signature | + + + + + + | SARS-CoV-2, | NEGATIVEComment: Testing | NEG | [facility] | | | NAAT | performed at [facility];[address] | | LABORATORY | | | (COVID-19) | [address];[place], [place] | | | | | | [address] | | | | + + + + + + + + | Specimen | + + | Tissue - Entire | | nasopharynx (body | | structure) | + + + + + + + | Performing | Address | City/State/Zipcode | Phone Number | | Organization | | | | + + + + + | [facility] | [address] | [place] [address] | [phone] | + + + + + Culture, [...] LABORATORY | | | | [address];[place] [address] | | | | + + + + + + | RESULT | NO GROWTH 6 DAYS | | [facility] | | | | | | LABORATORY | | + + + + + + | RESULT | Testing performed at | | [facility] | | | | TCL, [address] | | LABORATORY | | | | [place], [place] | | | | | | [address]Lnphtsy: Testing | | | | | | performed at [facility], [address] | | | | | | [place], [place] | | | | | | [address] | | | | + + + + + + + + | Specimen | + + | Blood - Peripheral | | blood specimen | | (specimen) | + + + + + + + | Performing | Address | City/State/Zipcode | Phone Number | | Organization | | | | + + + + + | [facility] | [address] | [place] [address] | [phone] | + + + + + Culture, [...] Special | Testing performed at | | [facility] | | | Requests | [facility];[address] | | LABORATORY | | | | [address];[place] [address] | | | | + + + + + + | RESULT | NO GROWTH 6 DAYS | | [facility] | | | | | | LABORATORY | | + + + + + + | RESULT | Testing performed at | | [facility] | | | | [facility]CL, [address] | | LABORATORY | | | | [place] | | | | | | [address]Tfedixl: Testing | | | | | | performed at [facility], [address] | | | | | | [address] [place] | | | | | | [address] | | | | + + + [...] LABORATORY | [address] | [place] [address] | [phone] | + + + + + Urinalysis [...] - 1.030 | [facility] | | | [place], | | | LABORATORY | | | [...] | 1+ (A)Comment: Testing | NONE | [facility] | | | Urine | performed at [facility], [address] | | LABORATORY | | | | [address], | | | | | | [place] [address] | | | | + + + [...] | + + + + + | [facility] | [address] | [place] [address] | [phone] | + + + + + Sodium, Urine, Random (12/24/2019 12:45 PM PDT) + + + + + + | Component | Value | Ref Range | Performed | Pathologist | | | | | At | Signature | + + + + + + | Sodium, | 52Comment: NO NORMAL | mmol/L | [facility] | | | Random | [facility]ABLISHEDTesting | | LABORATORY | | | urine | performed at [facility], [address] | | | | | [address], | | | | | | [place] [address] | | | | + + + [...] | + + + + + | [facility] | [address] | [place] [address] | [phone] | + + + + + Creatinine, Urine, Random (12/24/2019 12:45 PM PDT) + + + + + + | Component | Value | Ref Range | Performed | Pathologist | | | | | At | Signature | + + + + + + | Creatinine, | 70.0Comment: NO NORMAL | mg/dL | [facility] | | | random | [facility]ISHED[facility] | | LABORATORY | | | urine | performed at [facility], [address] | | | | | | [address], | | | | | | [place] [address] | | | | + + + [...] | + + + + + | [facility] | [address] | [place] [address] | [phone] | + + + + + Lactic Acid (12/24/2019 12:27 PM PDT) + + + + + + | Component | Value | Ref Range | Performed | Pathologist | | | | | At | Signature | + + + + + + | Lactate, | 1.6Comment: Testing | 0.4 - 2.0 | [facility] | | | Serum | performed at [facility];[address] | mmol/L | LABORATORY | | | | [address];[place] | | | | | | [address] | | | | + + + + + + + + | Specimen | + + | Blood | + + + + + + + | Performing | Address | City/State/Zipcode | Phone Number | | Organization | | | | + + + + + | [facility] | [address] | [place] [address] | [phone] | + + + + + Procalcitonin [...] | | | | | | at [facility];[address] | | | | [address];[place] [address] | | | | + + + + + + + + | Specimen | + + | Blood | + + + + + + + | Performing | Address | City/State/Zipcode | Phone Number | | Organization | | | | + + + + + | [facility] | [address] | [place] [address] | [phone] | + + + + + POC Glucose (12/24/2019 12:25 PM PDT) + + + + + + | Component | Value | Ref Range | Performed | Pathologist | | | | | At | Signature | + + + + + + | Glucose, | 143 (H)Comment: Testing | 65 - 99 mg/dL | [facility] | | | POC | performed at [facility];[address] | | LABORATORY | | | | [address];[place] | | | | | | [address] | | | | + + + + + + + + | Specimen | + + | | + + + + + + + | Performing | Address | City/State/Zipcode | Phone Number | | Organization | | | | + + + + + | [facility] | [address] | [place] [address] | [phone] | + + + + + POC [...] | | | POC | performed at [facility];[address] | | LABORATORY | | | | [address];[place], [place] | | | | | | [address] | | | | + + + + + + + + | Specimen | + + | | + + + + + + + | Performing | Address | City/State/Zipcode | Phone Number | | Organization | | | | + + + + + | [facility] | [address] | [place] [address] | [phone] | + + + + + CBC [...] | 12.2Comment: NO NORMAL | fl | [facility] | | | | [facility] ESTABLISHEDTesting | | LABORATORY | | | | performed at [facility];[address] | | | | | | [address];[place] | | | | | | [address] | | | | + + + + + + + + | Specimen | + + | Blood | + + + + + + + | Performing | Address | City/State/Zipcode | Phone Number | | Organization | | | | + + + + + | [facility] | [address] | [place] [address] | [phone] | + + + + + Basic [...] | | | | | performed at [facility], [address] | | | | | | [facility], | | | | | | [place] [address] | | | | + + + + + + + + | Specimen | + + | Blood | + + + + + + + | Performing | Address | City/State/Zipcode | Phone Number | | Organization | | | | + + + + + | [facility] | [address] | [place] [address] | [phone] | + + + + + POC [...] | | | POC | performed at [facility];[address] | | LABORATORY | | | | [address];[place], [place] | | | | | | [address] | | | | + + + + + + + + | Specimen | + + | | + + + + + + + | Performing | Address | City/State/Zipcode | Phone Number | | Organization | | | | + + + + + | [facility] | [address] | [place] [address] | [phone] | + + + + + POC Glucose (12/23/2019 4:35 PM PDT) + + + + + + | Component | Value | Ref Range | Performed | Pathologist | | | | | At | Signature | + + + + + + | Glucose, | 129 (H)Comment: Testing | 65 - 99 mg/dL | [facility] | | | POC | performed at [facility];[address] | | LABORATORY | | | | [address];[place] | | | | | | [address] | | | | + + + + + + + + | Specimen | + + | | + + + + + + + | Performing | Address | City/State/Zipcode | Phone Number | | Organization | | | | + + + + + | [facility] | [address] | [place] [address] | [phone] | + + + + + POC Glucose (12/23/2019 2:05 PM PDT) + + + + + + | Component | Value | Ref Range | Performed | Pathologist | | | | | At | Signature | + + + + + + | Glucose, | 158 (H)Comment: Testing | 65 - 99 mg/dL | [facility] | | | POC | performed at [facility];[address] | | LABORATORY | | | | [address];[place] | | | | | | [address] | | | | + + + + + + + + | Specimen | + + | | + + + + + + + | Performing | Address | City/State/Zipcode | Phone Number | | Organization | | | | + + + + + | [facility] | [address] | [place] [address] | [phone] | + + + + + POC [...] | | | POC | performed at [facility];[address] | | LABORATORY | | | | [address];[place], [place] | | | | | | [address] | | | | + + + + + + + + | Specimen | + + | | + + + + + + + | Performing | Address | City/State/Zipcode | Phone Number | | Organization | | | | + + + + + | [facility] | [address] | [place] [address] | [phone] | + + + + + Basic [...] 22 (L)Comment: GFR <60: | >60 | [facility] | | | GFR | CHRONIC [...] | | | | | performed at [facility] | | | | | | [facility];[place], [place] | | | | | | [address] | | | | + + + + + + + + | Specimen | + + | Blood | + + + + + + + | Performing | Address | City/State/Zipcode | Phone Number | | Organization | | | | + + + + + | [facility] | [address] | [place] [address] | [phone] | + + + + + Phosphorus (12/23/2019 4:04 AM PDT) + + + + + + | Component | Value | Ref Range | Performed | Pathologist | | | | | At | Signature | + + + + + + | Phosphorus | 4.6Comment: Testing | 2.3 - 4.8 mg/dL | [facility] | | | | performed at [facility];[address] | | LABORATORY | | | | [address];[place] | | | | | | [address] | | | | + + + + + + + + | Specimen | + + | Blood | + + + + + + + | Performing | Address | City/State/Zipcode | Phone Number | | Organization | | | | + + + + + | [facility] | [address] | [place] [address] | [phone] | + + + + + Magnesium (12/23/2019 4:04 AM PDT) + + + + + + | Component | Value | Ref Range | Performed | Pathologist | | | | | At | Signature | + + + + + + | Magnesium | 2.1Comment: Testing | 1.7 - 2.4 mg/dL | [facility] | | | | performed at [facility];[address] | | LABORATORY | | | | [address];[place], [place] | | | | | | [address] | | | | + + + + + + + + | Specimen | + + | Blood | + + + + + + + | Performing | Address | City/State/Zipcode | Phone Number | | Organization | | | | + + + + + | [facility] | [address] | [place] [address] | [phone] | + + + + + CBC [...] LABORATORY | | | | performed at [facility];[address] | | | | | | [address];[place] | | | | | | [address] | | | | + + + + + + + + | Specimen | + + | Blood | + + + + + + + | Performing | Address | City/State/Zipcode | Phone Number | | Organization | | | | + + + + + | [facility] | [address] | [place] [address] | [phone] | + + + + + Hemoglobin (12/22/2019 9:37 PM PDT) + + + + + + | Component | Value | Ref Range | Performed | Pathologist | | | | | At | Signature | + + + + + + | Hemoglobin | 9.1 (L)Comment: Testing | 13.2 - 17.0 | [facility] | | | | performed at [facility];[address] | g/dL | LABORATORY | | | | [address];[place], [place] | | | | | | [address] | | | | + + + + + + + + | Specimen | + + | Blood | + + + + + + + | Performing | Address | City/State/Zipcode | Phone Number | | Organization | | | | + + + + + | [facility] | [address] | [place] [address] | [phone] | + + + + + Hematocrit (12/22/2019 9:37 PM PDT) + + + + + + | Component | Value | Ref Range | Performed | Pathologist | | | | | At | Signature | + + + + + + | Hematocrit | 27.4 (L)Comment: Testing | 39.0 - 50.0 % | [facility] | | | | performed at [facility];[address] | | LABORATORY | | | | [address];[place] | | | | | | [address] | | | | + + + + + + + + | Specimen | + + | Blood | + + + + + + + | Performing | Address | City/State/Zipcode | Phone Number | | Organization | | | | + + + + + | [facility] | [address] | [place] [address] | [phone] | + + + + + POC [...] | | | POC | performed at [facility];[address] | | LABORATORY | | | | [address];[place] | | | | | | [address] | | | | + + + + + + + + | Specimen | + + | | + + + + + + + | Performing | Address | City/State/Zipcode | Phone Number | | Organization | | | | + + + + + | [facility] | [address] | [place] [address] | [phone] | + + + + + POC [...] | | | POC | performed at [facility];[address] | | LABORATORY | | | | [address];[place] | | | | | | [address] | | | | + + + + + + + + | Specimen | + + | | + + + + + + + | Performing | Address | City/State/Zipcode | Phone Number | | Organization | | | | + + + + + | [facility] | [address] [facility] | [place] [address] | [phone] | + + + + + Red [...] | [facility] | | | COMMENT | [facility];[address] | | LABORATORY | | | | [place] [address] | | | | + + + + + + + + | Specimen | + + | | + + + + + + + | Performing | Address | City/State/Zipcode | Phone Number | | Organization | | | | + + + + + | [facility] | [address] | [place] [address] | [phone] | + + + + + POC Glucose (12/22/2019 10:38 AM PDT) + + + + + + | Component | Value | Ref Range | Performed | Pathologist | | | | | At | Signature | + + + + + + | Glucose, | 161 (H)Comment: Testing | 65 - 99 mg/dL | [facility] | | | POC | performed at [facility];[address] | | LABORATORY | | | | [address];[place] | | | | | | [address] | | | | + + + + + + + + | Specimen | + + | | + + + + + + + | Performing | Address | City/State/Zipcode | Phone Number | | Organization | | | | + + + + + | [facility] | [address] | [place] [address] | [phone] | + + + + + NATHALIA [...] | | | POC | performed at [facility];[address] | g/dL | LABORATORY | | | | [address];[place], [place] | | | | | | [address] | | | | + + + + + + + + | Specimen | + + | | + + + + + + + | Performing | Address | City/State/Zipcode | Phone Number | | Organization | | | | + + + + + | [facility] | [address] | [place] [address] | [phone] | + + + + + POC [...] | | | POC | performed at [facility];[address] | g/dL | LABORATORY | | | | [address];[place], [place] | | | | | | [address] | | | | + + + + + + + + | Specimen | + + | | + + + + + + + | Performing | Address | City/State/Zipcode | Phone Number | | Organization | | | | + + + + + | [facility] | [address] | [place] [address] | [phone] | + + + + + POC [...] | | | POC | performed at [facility];888 | g/dL | LABORATORY | | | | [address];[place], [place] | | | | | | [address] | | | | + + + + + + + + | Specimen | + + | | + + + + + + + | Performing | Address | City/State/Zipcode | Phone Number | | Organization | | | | + + + + + | [facility] | [address] | [place] [address] | [phone] | + + + + + POC [...] | | | POC | performed at [facility];888 | g/dL | LABORATORY | | | | [address];[place], [place] | | | | | | [address] | | | | + + + + + + + + | Specimen | + + | | + + + + + + + | Performing | Address | City/State/Zipcode | Phone Number | | Organization | | | | + + + + + | [facility] | [address] | [place] [address] | [phone] | + + + + + Type [...] + + + | BB BAND | [id number] | | [facility] | | | | | | LABORATORY | | + + + + + + | UNIT # | [id number] | | [facility] | | | | [...] | | | RESULT | performed at [facility];888 | | LABORATORY | | | | [address];[place] | | | | | | [address] | | | | + + + + + + | UNIT # | [id number] | | [facility] | | | | [...] | + + + + + | [facility] | [address] | [place] [address] | [phone] | + + + + + POC Glucose (12/22/2019 5:35 AM PDT) + + + + + + | Component | Value | Ref Range | Performed | Pathologist | | | | | At | Signature | + + + + + + | Glucose, | 155 (H)Comment: Testing | 65 - 99 mg/dL | [facility] | | | POC | performed at [facility];[address] | | LABORATORY | | | | [address];[place] | | | | | | [address] | | | | + + + + + + + + | Specimen | + + | | + + + + + + + | Performing | Address | City/State/Zipcode | Phone Number | | Organization | | | | + + + + + | [facility] | [address] | [place] [address] | [phone] | + + + + + Shine ORTEGA (12/22/2019 5:26 AM PDT) + + + + + + | Component | Value | Ref Range | Performed | Pathologist | | | | | At | Signature | + + + + + + | INR | 1.2Comment: REFERENCE | | [facility] | | | | RANGE:0.9 - [...] | | | | | performed at [facility];888 | | | | | | [address];[place] | | | | | | [address] | | | | + + + + + + + + | Specimen | + + | Blood | + + + + + + + | Performing | Address | City/State/Zipcode | Phone Number | | Organization | | | | + + + + + | [facility] | [address] | [place] [address] | [phone] | + + + + + CBC [...] | | | Absolute | performed at [facility], [address] | K/uL | LABORATORY | | | | [address], | | | | | | [place] [address] | | | | + + + + + + + + | Specimen | + + | Blood | + + + + + + + | Performing | Address | City/State/Zipcode | Phone Number | | Organization | | | | + + + + + | [facility] | [address] | [place] [address] | [phone] | + + + + + Magnesium (12/22/2019 5:26 AM PDT) + + + + + + | Component | Value | Ref Range | Performed | Pathologist | | | | | At | Signature | + + + + + + | Magnesium | 2.6 (H)Comment: Testing | 1.7 - 2.4 mg/dL | [facility] | | | | performed at [facility], [address] | | LABORATORY | | | | [address], | | | | | | [place] [address] | | | | + + + + + + + + | Specimen | + + | Blood | + + + + + + + | Performing | Address | City/State/Zipcode | Phone Number | | Organization | | | | + + + + + | [facility] | [address] | [place] [address] | [phone] | + + + + + Basic [...] | | | | | performed at [facility], [address] | | | | | | [facility], | | | | | | [place] [address] | | | | + + + + + + + + | Specimen | + + | Blood | + + + + + + + | Performing | Address | City/State/Zipcode | Phone Number | | Organization | | | | + + + + + | [facility] | [address] | [place] [address] | [phone] | + + + + + POC [...] | | | POC | performed at [facility];[address] | | LABORATORY | | | | [address];[place], [place] | | | | | | [address] | | | | + + + + + + + + | Specimen | + + | | + + + + + + + | Performing | Address | City/State/Zipcode | Phone Number | | Organization | | | | + + + + + | [facility] | [address] | [place] [address] | [phone] | + + + + + POC [...] | | | POC | performed at [facility];[address] | | LABORATORY | | | | [address];[place] | | | | | | [address] | | | | + + + + + + + + | Specimen | + + | | + + + + + + + | Performing | Address | City/State/Zipcode | Phone Number | | Organization | | | | + + + + + | [facility] | [address] | [place] [address] | [phone] | + + + + + documented [...] | | | | Starting [facility] 12/26/19 at 1637 | | | [...] | | | | | | | 5797-1488 Use NIGHT DOSE for | | | | | | | doses scheduled: HS, | | | | | | | Nighttime 8731-5934 If the BG is | | | [...]
--- OUTSIDE RECORDS SUMMARY | ~2020-03-05 | XMS | Encounter Summary ---
Demographics + + + | Address | [address] | | | [place] [address] | + + + | Home Phone [...] [place] | | | | | [address] | | + + + + + | Deanna Lawson | ECON | Unknown | | + + + + + Care Team Providers + +------+ + | Care Burlap Roll Coverer Name | Role | Phone | + [...] + + | 12/28/ | Anesthesia | [facility] | Maco Wolf, | | | 2019 | Event | [facility] | SWITCHBOARD OPERATOR [address] | | | | | INTRA OP [address] | [place] [address] | | | | | [address] [place] | [phone] | | | | | [address] | | | | | | [phone] | | | +--------+ + + + [...] | Salma, | | | | | Laborer Cheesemaking | | +--------+ + + + | Urethr | 12/24/19; 1240; indicated for | 12/24/19 1240 by | 12/31/19 1140 by | | al | critically ill with need for | Saritha Tavarez, | Liz Washburn, | | Jayesh | accurate I/O; Patient/family | RN | RN | | er | educated [...] | eral | (dorsal); Forearm; | Norma iDckey RN | Leatha Mayer, | | IV | wqxp-vee-lxqtrs catheter system; | | RN | | [...] encounter OR Notes Anesthesia Postprocedure Evaluation - Maco Wolf CRNA - 12/29/2019 9:48 AM PDTFormatt ing of this note might be different from the original. ANESTHESIA POSTANESTHESIA EVALUATION Andres Jones Ramirez 89 y.o. male 1930 [id number] Procedure(s) EGD (N/A Mouth) Cooperates? Yes Mental Status Performs simple tasks. Respiratory Satisfactory - Airway patent (self maintained). Cardiovascular Satisfactory - Blood pressure and heart rate acceptable Temperature Satisfactory Pain Satisfactory N/V Control Satisfactory Hydration Satisfactory - No signs of dehydration Adverse Events ADVERSE EVENTS: No adverse events Vitals Value Taken Time Temp 36.4 C (97.6 F) 12/29/2019 9:47 AM Pulse 62 12/29/2019 9:47 AM Resp 18 12/29/2019 9:47 AM BP 128/59 12/29/2019 9:47 AM Arterial Line BP Arterial Line BP 2 SpO2 98 % 12/29/2019 9:47 AM Electronically signed by Maco Wolf CRNA 12/29/2019 9:48 AM [facility] Maco Wolf CRNA at 0 9:48 AM PDTAnesthesia Preprocedure Evaluation - Maco Wolf CRNA - 12/29/2019 8:59 A M PDT ANESTHESIA PREANESTHESIA EVALUATION Andres Guzmán 89 y.o. male 1930 [id number] Procedure(s): EGD (N/A Mouth) Medical,anesthesia, drug, allergy histories reviewed, NPO status verified. (-) perioperative beta-john/statin not given/taken, reason: not applicable/Not taking Be ta-John. Review of Systems / Med History Cardiovascular (+) hypertension (+) Dysrhythmias: (+) congestive heart failure. (+) valvular problems/murmurs (+) PVD: . Gastrointestinal/Hepatic (+) hypercholesterolemia. Renal (+) acute renal failure. Endocrine (+) Diabetes: type 2. Hematology/Other (+) anemia. Neuromuscular (+) CVA. Additional Comments: Stage III chronic kidney disease History of gout Chronic anticoagulation with apixaban for history of chronic atrial fibrillation. History of GI GI bleed in 2017. History of blood transfusion Status post pacemaker placement for which he follows up with Dr. Enoch Thompson. History of stroke in 2007 with residual right-sided weakness Type 2 diabetes mellitus. Physical Exam Airway MP III, TM >3 FB, Mouth opening >2 FB. Neck: full ROM, extends >30 degrees. Jaw protru jose a normal. Facial hair present: Yes Dental (+) chipped/broken teeth, missing teeth and poor dentition. Anesthesia Plan ASA: 3 Type: General. Induction: Intravenous. Potential problems: None anticipated. Monitors: Standard ASA monitors. Consent statement: Anesthetic plan, alternatives, risks and benefits discussed with patient. discussed risks t o teeth, heart problems, muscle aches, nausea, perioperative CV events, respiratory events, sore throat, voice injury Consenting person understands and agrees to proceed. Discussed plan with SWITCHBOARD OPERATOR. Electronically Signed by: Maco Wolf CRNA ESig date/time: 12/29/2019 8:59 AM documented in this e ncounter Miscellaneous Notes Anesthesia Post-op Handoff - aMco Wolf CRNA - 12/29/2019 9:46 AM PDTFormatting of th is note might be different from the original. ANESTHESIA HANDOFF NOTE Andres Jones Ramirez 89 y.o. male 1930 [id number] EGD (N/A Mouth) HANDOFF NOTE Handoff Protocol Used: post-procedure handoff [...] receiving team Patient Location: Phase II Condition: awake and alert Airway/O2: nasal cannula with O2 Multimodal analgesia: multimodal analgesia used between 6 hours prior to anesthesia start t o PACU discharge Medical reason for not performing KARAN screening: No medical reason exists for NOT screening for KARAN The significant anesthesia concerns and VS in Epic were reviewed with the receiving team. Maco Wolf CRNA 12/29/2019 9:46 AM [facility] Maco Wolf CRNA at 0 9:47 AM PDTdocumented in this encounter Plan of Treatment +--------+---------+ + + + | Date | Type | Specialty | Care Team | Description | +--------+---------+ + + + | 03/17/ | Office | Orthopedic Surgery | Melquiades Baez | | | 2019 | Visit | | DO [address] | | | | | | [place], | | | | | | [place] [address] | | | | | | [phone] | | | | | | | | +--------+---------+ + + + | 04/21/ | Office | Nephrology | Isiah Jade MD | | | 2019 | Visit | | [address] | | | | | | [address] [place] | | | | | | [address] | | | | | | | | +--------+---------+ + + + | 05/07/ | Office | Cardiology | Charlee Oswald | | | 2019 | Visit | | [address] | | | | | | [address] | | | | | | [place] [address] | | | | | | [phone] | | | | | | | [...]
--- OUTSIDE RECORDS SUMMARY | ~2020-03-05 | XMS | Encounter Summary ---
Demographics + + + | Address | [address] | | | [place] [address] | + + + | Home Phone [...] [place] | | | | | [address] | | + + + + + | Deanna Lawson | ECON | Unknown | | + + + + + Care Team Providers + +------+ + | Care Glacing Machine Tender Name | Role | Phone | + +------+ + | Barbara Gilman MD | PCP | | + +------+ + Encounter Details +--------+ + + + + | Date | Type | Department | Care Team | Description | +--------+ + + + + | 01/11/ | Orders Only | [facility] | Tristan Rajput, | | | 2018 | | NEPHROLOGY [place] | TITLE COORDINATOR [address] | | | | | [address] [facility] | [place] | | | | | [place] | [place] | | | | | [address] | [address] | | | | | [phone] | [phone] | | | | | | | [...] | | | | | | [address] [facility] | | | | | | [place] [address] | | | | | | [phone] | | | | | | | | +--------+---------+ + + + | 04/21/ | Office | Nephrology | Isiah Jade MD | | | 2019 | Visit | | [address] [facility] [place] | | | | | | [address] [place] | | | | | | [address] | | | | | | | | +--------+---------+ + + + | 05/07/ | Office | Cardiology | Charlee Oswald | | | 2019 | Visit | | [address] | | | | | | [address] | | | | | | [place] [address] | | | | | | [phone] | | | | | | | [...]
--- OUTSIDE RECORDS SUMMARY | ~2020-03-05 | XMS | Encounter Summary ---
Demographics + + + | Address | [address] | | | [place] [address] | + + + | Home Phone [...] [place] | | | | | [address] | | + + + + + | Deanna Lawson | ECON | Unknown | | + + + + + Care Team Providers + +------+ + | Care Electric Power Line Repairer Name | Role | Phone | + +------+ + | Barbara Gilman MD | PCP | | + +------+ + Encounter Details +--------+ + + + + | Date | Type | Department | Care Team | Description | +--------+ + + + + | 04/01/ | Orders Only | [facility] | Tristan Rajput, | | | 2018 | | [facility] | FIBERGLASS FINISHER [address] | | | | | [address] [place] | [address] | | | | | [address] [facility] [place] | [place] | | | | | [address] | [address] | | | | | [phone] | [phone] | | | | | | | [...] | | | | | | [facility] [facility] | | | | | | [place] [address] | | | | | | [phone] | | | | | | | | +--------+---------+ + + + | 04/21/ | Office | Nephrology | Iisah Jade MD | | | 2019 | Visit | | [address] | | | | | | [address] [place] | | | | | | [address] | | | | | | | | +--------+---------+ + + + | 05/07/ | Office | Cardiology | Charlee Oswald | | | 2019 | Visit | | [address] | | | | | | [address] | | | | | | [place] [address] | | | | | | [phone] | | | | | | | [...] | | | LAB | | | [place] | | | | | + + [...]
--- OUTSIDE RECORDS SUMMARY | ~2020-03-05 | XMS | Encounter Summary ---
Demographics + + + | Address | [address] | | | [place] [address] | + + + | Home Phone [...] [place] | | | | | [address] | | + + + + + | Deanna Lawson | ECON | Unknown | | + + + + + Care Team Providers + +------+ + | Care Child Care Leader Name | Role | Phone | + +------+ + PCP | Unavailable | + +------+ + Encounter Details +--------+ + + + + | Date | Type | Department | Care Team | Description | +--------+ + + + + | 02/04/ | Hospital | [facility] | Conversion | Presence of cardiac | | 2019 | Encounter | CENTER CV INTRA OP | Transaction, | pacemaker; Permanent | | | | [address] | Provider Unknown | atrial fibrillation | | | | [place], [place] | [phone] | (HCC); 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 Marks MD | failure ([facility]); | | | | | [address] | Pacemaker at end of | | | | | [place], [place] | battery life | | | | | [address] | | | | | | | [...] Surgery Author Type: Registered Nurse Filed: 02/04/19 0566 Date of Service: 02/04/19 1430 Status: Signed Avionics System Engineer: Sendy Smith RN (Registered Nurse) Patient discharged [...] H&P by Enoch Marks MD at 02/03/19 0980 Author: Enoch Marks MD Service: Specialist Author Type: Physician Filed: 02/04/19 1252 Date of Service: 02/03/191735 Status: Addendum Avionics System Engineer: Enoch Marks MD (Physician) Related Notes: Original Note by Enoch Marks MD (Physician) filed at 02/04/19 1228 [facility] Service: Electrophysiology Update to Pre-Operative History & [...] Guzmán : 1930: AGE: 88 y.o. Phone- [phone] (home) PRIMARY CARE: Barbara Gilman Requesting Physician: Barbara Gilman MD [address] [place] [id number] SUMMARY OF EP RECOMMENDATIONS Patient Active Problem [...] mild concentric LVH. He has a single-chamber [employer] ventricular pacemaker mayelin t is nearing elective replacement indicator status. He has been pacing the right ventricle 9 9% of the time. Anticoagulated with apixaban. He has only been taking 2.5 mg twice per day, because of renal dysfunction and age. day. The chads 2 vascular score is 4. 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 He has a [employer] Altrua single-chamber RV pacemaker that was [...] (two) times daily., Di sp: , Rfl: Wqggufz-Vpmwitzwm-Uapsuhl D 600-40-500 MG-MG-UNIT TB24, Take 1,200 mg [...] | | | | | [place], | | | | | | [place] [address] | | | | | | [phone] | | | | | | | | +--------+---------+ + + + | 04/21/ | Office | Nephrology | Isiah Jade MD | | 2019 | Visit | | [address] [facility] | | | | | | [address] [place] [address] | | | | | | [address] | | | | | | | | +--------+---------+ + + + | 05/07/ | Office | Cardiology | Darek Charlee | | | 2019 | Visit | | [address] | | | | | | [address] | | | | | | [place] [address] | | | | | | [phone] | | | | | | | [...] will be seen in one week in [place] | | | by ENEDINA Bo. Read [...] | | indicator status. 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 He has felt poorly over the last few | | | weeks since the device went into an MIRIAN mode. The current lead is | | | a [employer] model 4136, serial #[id number]. The current | | | pacemaker is a [employer] model S601, serial #[id number]. He is | | | anticoagulated and [...] The lead was attached to a new [employer] | | | Accolade MRI compatible model L310, serial #[id number] pacemaker. That | | | device was [...] indicator | | status. 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 He | | has felt poorly over the last few weeks since the device went into an MIRIAN | | mode. The current lead is a [employer] model 4136, serial | | #[id number]. The current pacemaker is a [employer] model S601, serial | | #[id number]. He is anticoagulated and the last dose [...] The lead was attached to a new [employer] | | Accolade MRI compatible model L310, serial #[id number] pacemaker. That device | | was placed [...] seen in one | | week in [place] by ENEDINA Bo. | | | | [...] | LAB | | | | [address];[place], [place] | | | | | | [address] | | | | + + + [...] | LAB | | | [address];[place], [place] | | | | | | [address] | | | | + + + [...] | | | | | | MDRD IDDC traceable | | | | | | equation.Testing | | | | | | performed at [facility];[address] | | | | | | [address];[place], [place] | | | | | | [address] | | | | + + + [...]
--- OUTSIDE RECORDS SUMMARY | ~2020-03-05 | XMS | Encounter Summary ---
Demographics + + + | Address | [address] | | | [place] [address] | + + + | Home Phone | | + + + | Preferred Language | Unknown | + + + | Marital Status | | + + + | Alevism Affiliation | [id number] | + + + | Race | Unknown | + + + | Ethnic Group | Unknown | + + + Author + + + | Author | [facility] | | | and [place] | + + + | Organization | [facility] | | | [...] [place] | | | | | [address] | | + + + + + | Deanna Lawson | ECON | Unknown | | + + + + + Care Team Providers + +------+ + | Care Hr Systems Analyst Name | Role | Phone | [...] + + | 12/21/ | Surgery | [facility] | Melquiades Baez | NAILING IM BETSY FEMUR | | 2019 | [facility] | DO [address] | - GAMMA NAIL | | | | OPERATING ROOM [address] | [facility] | | | | | [address] | [place] [address] | | | | | [place], [place] | [phone] | | | | | [address] | | | | | | [phone] | | | +--------+---------+ + + + [...] was on board. No immediate indication for TRANSPORTATION AID. Patient was also seen by physical therapy and occupational therapy and was recommended for discharging to [facility]. However patient will b e going to [facility] at this time. Patient also [...] No CVA tenderness, no spinal tenderness Disposition: [facility] Condition: Fair No discharge procedures on file. [...] BUNCREARATIO 30 01/01/2020 PTH 72.57 (A) 04/01/2019 [id number] 25.2 (L) 12/27/2019 CALCIUM 8.6 01/01/2020 PHOS [...] been following up with [facility] in [place]. He has unrecovered acute kidney injury and a higher baseline creatinine. At this time there is no clinical uremia, refractory volume overload, refractory acidosis, refractory hyperkalemia and no urgent indication of starting TRANSPORTATION AID. Neither is there an indication for diagnostic [...] Incentive spirometry. Transfuse Prn. No indication for TRANSPORTATION AID for now. Await renal recovery. On discharge [...] was completed later after rounds. Dictation software, [employer], was used which may contain error for [...] but not limited to potential need for TRANSPORTATION AID . This is a patient with multiple [...] is waiting downstairs. Deanna Doe RN, CMSRN, [facility] Inpatient Wound Ostomy Care [phone] 01/01/2020 11:46 AM Chai, Savana Irving RN [...] BUNCREARATIO 25 12/31/2019 PTH 72.57 (A) 04/01/2019 [id number] 25.2 (L) 12/27/2019 CALCIUM 8.5 12/31/2019 PHOS [...] been following up with [facility] in [place]. He has unrecovered acute kidney injury and a higher baseline creatinine. At this time there is no clinical uremia, refractory volume overload, refractory acidosis, refractory hyperkalemia and no urgent indication of starting TRANSPORTATION AID. Neither is there an indication for diagnostic [...] Incentive spirometry. Transfuse Prn. No indication for TRANSPORTATION AID for now. Await renal recovery. I discussed [...] was completed later after rounds. Dictation software, [employer], was used which may contain error for [...] but not limited to potential need for TRANSPORTATION AID . This is a patient with multiple [...] injuries: see wound RN note for treatment. [facility] ed, continue wound care at swing bed, send with extra dressing supplies. *Metabolic bone disorder: elevated PTH and phosphorus. Treatment per job hand (see thei r note). Subjective No chest [...] y.o. : 1930 SEX: male PCP: Barbara Gimlan MD Hospital Day: LOS: 9 SUBJECTIVE Patient Summary: Patient is an 89-year-old male with past medical history of HTN, DM Type 2, CKD Stage III w ith baseline creatinine 1.7 who was admitted as a transfer from [facility] due t o a mechanical fall [...] finding placement and he was accepted by [facility] in [place], [place] for rehabilitation purposes. Hospital stay was [...] Medications Current Facilty-Administered PRN Medications Ordered in [facility] Medication Dose Route Frequency Provider Last Rate [...] week, he is accepted at [facility] in [place] with discharge plans tomorrow for rehabilit ation [...] discharge plans to [facility] in [facility] tomorrow. DVT prophylaxis with SCD's only due to risks of bleeding. Discharge plans tomorrow to [facility] in [place], [place] for rehabi litation. Called his daughter Ms. Huerta and left a message with updated information at phone number [phone]. Jerry Chino MD 12/30/2019 turgill, DALILA Keys - 12/30/2019 12:35 PM PDTFormatting of this note might be different from the [facility] Service: Gastroenterology Consult Progress Note Hospital Day: LOS: 9 days SUBJECTIVE Patient Summary: This is an 89-year-old male with multiple medical problems and a his tory of hypertension, diabetes, CKD stage III who was transferred from [facility] t o a fall and [...] Infusions dextrose 10% pantoprazole 8 mg/hr (12/30/19 0988) PRN Medications acetaminophen OR acetaminophen OR acetaminophen, [...] motor deficits. PSYCHIATRIC: Appropriate, affect appears normal [facility] Gastroenterology Patient Name: Andres Guzmán Procedure [...] physician, the nurse, the anesthesiologist and the endoscopic technician in the pre-procedure area in the [...] successful. Thermal coagulation with Gold probe 7 Gabonese x 5 pulses was successful with hemostasis. [...] 12/29/2019 8:36 AM Number of Addenda: 0 [facility] DATA Lab Results Component Value Date [...] ll with any questions. Florina Cantu PA-C [facility] Gastroenterology 12/30/2019 Associated attestation - Lamont Hernandez MD - 12/31/2019 2:17 PM [id number] male with GI bleeding due to duodenal ulcer with visible vessel. The ulcer and visible vessel were tr eated with injection and gold probe thermal coagulation. The patient was seen and examined by me personally. The case was discussed with the physician's reference assistant and I agree with the assessment and p tim as outlined in the note. Continue PPI IV infusion for total of 72 hours and then when patient is discharged he must be on twice daily PPI for 8 weeks. Resume Eliquis in 1 week. Lamont Hernandez MD Gastroenterology staffTylerMarycarmen, [facility] - 12/30/2019 11:05 AM PDTFormatting of [...] [place] (Right) on the December with Dr. Baze. I assumed care from Dr. Tapia 12/27/19. [...] BUNCREARATIO 23 12/30/2019 PTH 72.57 (A) 04/01/2019 [id number] 25.2 (L) 12/27/2019 CALCIUM 8.6 12/30/2019 PHOS [...] been following up with [facility] in [place]. That had improved with nonoliguric state but now seems to have leveled off at around 3 and this may be reflection of unrecovered acute kidney injury and a higher baseline creatinine. At this time there is no clinical uremia, refractory volume overload, refractory acidosis, refractory hyperkalemia and no urgent indication of starting TRANSPORTATION AID. Neither is there an indication for diagnostic [...] Incentive spirometry. Transfuse Prn. No indication for TRANSPORTATION AID for now. Await renal recovery. I discussed [...] was completed later after rounds. Dictation software, [employer], was used which may contain error for [...] but not limited to potential need for TRANSPORTATION AID . This is a patient with multiple [...] Psych: Pleasant demeanor. Neurologic: Alert. No asterixis. Ele with clear urine. Vital Signs: BP 140/63 [...] BUNCREARATIO 30 12/29/2019 PTH 72.57 (A) 04/01/2019 [id number] 25.2 (L) 12/27/2019 CALCIUM 8.7 12/29/2019 PHOS [...] been following up with [facility] in [place]. That seems to be improving with nonoliguric state and small reduction in creatinine. At this time there is no clinical uremia, refractory volume overload, refractory acidosis, refractory hyperkalemia and no urgent indication of starting TRANSPORTATION AID. Neither is there an indication for diagnostic [...] Incentive spirometry. Transfuse Prn. No indication for TRANSPORTATION AID for now. Await renal recovery. I discussed [...] was completed later after rounds. Dictation software, [employer], was used which may contain error for [...] but not limited to potential need for TRANSPORTATION AID . acetaminophen 1,000 mg Oral 3 times [...] who was admitted as a transfer from [facility] due t o a mechanical fall [...] placement and he was accepted by [facility] in [place], [place] for rehabilitation purposes. Hospita l stay [...] by [facility] in [place], [place] with discharge plans early next weeks [...] another 1 to 2 to SNF in [place], [place] if remains stable and improve d. Called his daughter Ms. Huerta and updated her about plans at phone number [phone]. Jerry Chino MD 12/29/2019 Norma Sarabia RN [...] BUNCREARATIO 28 12/28/2019 PTH 72.57 (A) 04/01/2019 [id number] 25.2 (L) 12/27/2019 CALCIUM 8.5 12/28/2019 PHOS [...] been following up with [facility] in [place]. That seems to be improving with nonoliguric state and small reduction in creatinine. At this time there is no clinical uremia, refractory volume overload, refractory acidosis, refractory hyperkalemia and no urgent indication of starting TRANSPORTATION AID. Neither is there an indication for diagnostic [...] Incentive spirometry. Transfuse Prn. No indication for TRANSPORTATION AID for now. Await renal recovery. I discussed [...] was completed later after rounds. Dictation software, [employer], was used which may contain error for [...] but not limited to potential need for TRANSPORTATION AID . acetaminophen 1,000 mg Oral 3 times [...] DALILA Grant - 12/28/2019 10:49 AM PDT [facility] Service: Orthopedic Surgery Progress Note Hospital [...] DALILA Peralta has created this entry using [employer] and [employer] macros. The entry has been reviewed and [...] who was admitted as a transfer from [facility] due t o a mechanical fall [...] placement and he was accepted by [facility] in [place], [place] for rehabilitation purposes. Hospita l stay [...] Medications Current Facilty-Administered PRN Medications Ordered in [facility] Medication Dose Route Frequency Provider Last Rate Last Dose aluminum & magnesium hydroxide-simethicone (MAALOX PLUS REGULAR STRENGTH) 200-200-20 mg /5 mL suspension 30 mL 30 mL Oral Q4H PRN Jerry Nathen Chino MD dextrose 50% injection 12.5-25 g 12.5-25 g Intravenous PRN Anders Soto PA-C 25 g at 12/22/19 0843 And dextrose 10% (D10W) infusion Intravenous Continuous PRN Adners Soto PA-C docusate sodium (COLACE) capsule 100 [...] slow progress, he is accepted by [facility] in [place], [place] with discharge plans possib ly early [...] 1 to 2 to a SNF in [place], [place] when renal functions are st able and cleared by Nephrology services. Also called his daughter Ms. Huerta and updated her a bout plans at phone number [phone]. Jerry Chino MD 12/28/2019 hazal Robbins COTA [...] been following up with [facility] in [place]. That seems to be improving with nonoliguric state and small reduction in creatinine. At this time there is no clinical uremia, refractory volume overload, refractory acidosis, refractory hyperkalemia and no urgent indication of starting TRANSPORTATION AID. Neither is there an indication for diagnostic [...] Incentive spirometry. Transfuse Prn. No indication for TRANSPORTATION AID for now. Await renal recovery. I discussed [...] was completed later after rounds. Dictation software, [employer], was used which may contain error for [...] but not limited to potential need for TRANSPORTATION AID . acetaminophen 1,000 mg Oral 3 times [...] status. Disposition: Plan to discharge [place], to [facility], once medically stable [...] Net -400 ml . Treatment plan: per job hand; slowly improving. *Blood pressure: labile; See VS [...] disorder: elevated PTH and phosphorus. Treatment per job hand (see thei r note). Subjective No chest [...] who was admitted as a transfer from [facility] due t o a mechanical fall [...] Medications Current Facilty-Administered PRN Medications Ordered in [facility] Medication Dose Route Frequency Provider Last Rate [...] trength and mobility. He is accepted by [facility] in [place], [place] and discharge is delayed due to [...] to 3 days to a SNF in [place], [place] when renal functions a re stable and cleared by Nephrology services. Jerry Chino MD 12/27/2019 Lidna Montalvo RN - 12/26/2019 5:09 PM PDT [facility] Service: Wound Care Consult Note Hospital [...] who was admitted as a transfer from [facility] due t o a mechanical fall [...] Medications Current Facilty-Administered PRN Medications Ordered in [facility] Medication Dose Route Frequency Provider Last Rate [...] placement is recommended. 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 Huerta and the at phone number [phone] Code Status: Full Code Regino Greene MD [...] lab follow-up and treatment per hospitalist and job hand. *Blood pressure: hypotensive; See VS for BP trending. 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 Current Weight: 63.5 kg (140 lb) Admit [...] Dr. Huerta and the at phone number [phone] Code Status: Full Code Regino Greene MD [...] conversation with family members today. Inpatient rehabilitation tech. Code Status: Full Code Regino Greene MD [...] sodium chloride 0.9% 100 mL/hr at 12/22/19 0824 OBJECTIVE Vital Signs: Vitals with Comments 12/22/2019 [...] GAMMA NAIL; Surgeon: Melquiades Baez DO; Location: [facility] MAIN OR OTHER SURGICAL HISTORY CATARACT EXTRACTION [...] Electronically Signed by: Lamont Hernandez MD 12/29/2019 [facility] Portions of this chart may have been created with [employer] recognition software. Occasi onal wrong-word or sound-alike substitutions may have occurred due to the inherent castañeda itations of voice recognition software. Please read the chart carefully and recognize, using context, where these substitutions have occurred Julián Urbina MD - 12/21/2019 7:38 PM PDTFormatting of this note m ight be different from the original. [facility] Service: Hospitalist History and Physical Date of Admission: Dec 21 2019 [facility] Reason for Admission: Right comminuted intertrochanteric fracture of the hip CHIEF COMPLAINT: Mechanical fall tripped over side curb landed on the right hip area right hip pain today HISTORY OF PRESENT ILLNESS The patient is a 89 y.o. male Transfer from [facility] after fall with right hip fracture with multiple comor bidities being on Eliquis as well requested for higher level of care to transfer to [facility] h orthopedic 89 years old gentleman fall at this morning mechanical fall tripped on the curb and result ed in right hip pain [facility] visited x-ray found to have a [...] and LFT Orthopedic on-call was consulted from [facility] and requested to transfer for higher level of care At [facility] with multiple comorbidities REVIEW OF SYSTEMS 12 [...] transfer lab WBC 5.9 hb10.2 hct 30.5 [id number] potassium 5.1 Bun 85 cre 2.6 Co2-24 [...] as per stated reason Chronic A. fib [id number]- VASC score is 6- Hold Eliquis for [...] Old records reviewed on EMR. Dictation software, [employer], used which may contain error for similar sounding words even af ter review. Personal communication requested for any clarification. Disposition: inpatient Code Status: FULL CODE Primary Care Physician: MD Julián Nobles MD 12/21/2019 documented in thi s encounter Consult Notes Lamont Hernandez MD - 12/29/2019 10:26 AM PDT Gastroenterology Consultation: [facility] 12/29/2019 Andres Jones Ramirez 89 y.o. [id number] History of present illness: Gastroenterology consultation is requested for evaluation of GI bleeding with melena. This is an 89-year-old male with multiple medical problems and a history of hypertension, d iabetes, CKD stage III who was transferred from [facility] due to a fall and he sustain [...] GAMMA NAIL; Surgeon: Melquiades Baez DO; Location: [facility] MAIN OR OTHER SURGICAL HISTORY CATARACT EXTRACTION [...] file Gets together: Not on file Attends bahai service: Not on file Active member of [...] this chart may have been created with [employer] voice recognition software. Occasi onal wrong-word or sound-alike substitutions may have occurred due to the inherent castañeda itations of voice recognition software. Please read the chart carefully and recognize, using context, where these substitutions have occurred Hayley Peres MD - 12/25/2019 8:46 PM PDT [address] by [facility] Problem List: Patient Active Problem List [...] III with baseline creatinine 1.7 admitted to [facility] on December 20 after a mechanical fall that led to right hip fracture. The patient was transferr ed from [facility] for surgery. The patient did [...] Tristan Gage at the nephrology clinic in [place]. The patien t is poor historian and does not recall seeing a job hand in the past. He also not awar [...] Order(s): IP CONSULT TO WOUND OSTOMY NURSE [facility] Service: Wound Care Consult Note Hospital [...] Elizabeth MD - 12/24/2019 11:33 AM PDT [facility] Service: Physicial Medicine & Rehab Consultation [...] curb and resulted in right hip pain [facility] visited x-ray found to have a [...] diabetes, and cirrhosis He was transferred to [facility], and is now s/p ORIF [...] GAMMA NAIL; Surgeon: Melquiades Baez DO; Location: [facility] MAIN OR OTHER SURGICAL HISTORY CATARACT EXTRACTION [...] AM PDTAssociated Order(s): PROVIDER TO PROVIDER CONSULT [facility] Orthopaedic and Sports Medicine Service: Orthopedic Surgery [...] hip f racture. He was transferred to [facility] for concerns with other comor bidities. [...] surgery. He will be taken for a [facility] hip cephalo-medullary nail.The risks and benefits of [...] might b e different from the original. [facility] FACILITY TRANSFER ORDERS Patient Name: Andres Guzmán [...] limb(s)): [x] OT Evaluation & Treat [] MANOMETER TECHNICIAN Evaluation Treat Wound/Skin Care: [] Follow current recommendations of the wound team for treatment. [] Wound Vac management per nursing protocol. Labs/Imaging: [] PT/INR: Frequency per SNF provider Goal INR: [] Fingerstick glucose check before meals and bedtime and PRN [] Labs: Follow up: Melquiades Baez DO [address] [facility] [phone] In 2 weeks For post op care Barbara Gilman MD [address] [place] [address] In 1 week I have advised [...] daily (with meals). aka: humaLOG By: Regino Gerene MD Quant: 10 mL pantoprazole 40 mg [...] Regino Greene MD, certify that post hospital penitentiary care is medically necessa ry on a continuing basis for any of the conditions for which he/she received care during thi s hospitalization. Additional Orders/Instructions: Physician's signature: 01/01/2020 10:59 AM [facility] NURSING FACILITY USE ONLY: [] Admitting [...] HIGH Current Discharge Plan Anticipated Discharge Disposition: penitentiary facility Expected DC Date: 12/31/2019 Barriers to Discharge: placement Steps Taken Toward Discharge: Attended morning rounds, called [facility] and provided upd ate of Pt Next Steps: d/c to [facility] Community Support Services Current Outpt/Agency/Support Groups: none Community Agency Name: none Other Resources: Discharge Transportation Transportation Needs: agency transportation Notes: Pt on course to discharge to [facility] tomorrow. Idalia brown d with [facility] team and they are accepting Pt tomorrow if Pt is medically ready. Cm will follow for d/c needs that arise. Electronically signed: Ja Marcus RN 12/31/2019 3:54 PM lan of Andrez Perry PTA - 12/31/2019 2:04 PM PDT Physical Therapy Treatment Note Recommended discharge disposition: penitentiary facility Post discharge physical therapy recommendation: Equipment [...] LTG Status continued at 12/30/2019 0805 LTG Concho Level supervised at 12/30/2019 08 LTG Assistive Device none at 12/30/2019 0805 All Transfers Goal Most Recent Value LTG Status new at 12/30/2019804 LTG Concho Level minimum assist (75% patient effort) at 12/30/2019804 LTG Assistive Device 2 wheeled walker (FWW) at 12/30/2019804 Gait Goal Most Recent Value LTG Status new at 12/30/2019804 LTG Concho Level minimum assist (75% patient effort) at 12/30/2019804 LTG Assistive Device 2 wheeled walker (FWW) at 12/30/2019804 LTG Distance (feet) 50ft at 12/30/2019 08 PT Time Calculation Individual Start Time: 1307 Individual Stop Time: 1320 Individual Total Time: 13 PT Total Treatment Time: 13 lan of [facility] - Liz Cabral RN - 12/31/2019 [...] plan for discharge to [facility] tomorrow and has no concerns regarding [...] Physical Therapy Treatment Note Recommended discharge disposition: penitentiary facility Post discharge physical therapy recommendation: Equipment [...] Bed Mobility Sit to Supine, Level of Concho: moderate assist (50% patient effort) Safety Issues: decreased use of legs for bridging/pushing Impairments: strength decreased Transfers Chair-Bed, Level of Concho: moderate assist (50% patient effort) [id number], Assistive Device: gait belt Sit-Stand, Level of Concho: moderate assist (50% patient effort) Stand-Sit, Level of Concho: moderate assist (50% patient effort) [id number], Assistive Device: gait belt Safety Issues: balance decreased during turns, step length decreased Impairments: strength decreased Goals Reflects last filed data and may be from multiple contributors. All Bed Mobility Goal Most Recent Value LTG Status continued at 12/30/2019 0805 LTG Concho Level supervised at 12/30/2019 0805 LTG Assistive Device none at 12/30/2019 0805 All Transfers Goal Most Recent Value LTG Status new at 12/30/2019 0805 LTG Concho Level minimum assist (75% patient effort) at 12/30/2019 0805 LTG Assistive Device 2 wheeled walker (FWW) at 12/30/2019 0805 Gait Goal Most Recent Value LTG Status new at 12/30/2019 0805 LTG Concho Level minimum assist (75% patient effort) at [...] Bed in low position, gait belt available, owner spa director socks on. Problem: Skin Injury Risk Increased [...] Physical Therapy Re-Assessment Note Recommended discharge disposition: penitentiary facility Post discharge physical therapy recommendation: ongoing low intensity therapy, will benefi t from structured setting Equipment Recommendations: (TBD) Barriers to community-based discharge Physical Impairment, Pain, and Fall risk Planned Interventions: balance training, bed mobility training, gait training, home exercis e program, manual therapy techniques, patient/family education, ROM (Range of Motion), stair training, strengthening, stretching, nigerien ball techniques, wheelchair management/propulsio n training Recommended [...] Documentation: sit to/from stand Sit-Stand, Level of Concho: moderate assist (50% patient effort) Stand-Sit, Level of Concho: moderate assist (50% patient effort) Fxi-[id number]-[id number], Assistive Device: other (see comments)(platform walker ) Maintain Weight Bearing Status: able to maintain weight bearing status Safety Issues: balance decreased during turns Impairments: pain, strength decreased, impaired balance Gait Gait Comments: ambulated with shuffled steps and decreased quita Level of Concho: moderate assist (50% patient effort) Assistive Device: [...] LTG Status continued at 12/30/2019 08 LTG Concho Level supervised at 12/30/2019 08 LTG Assistive Device none at 12/30/2019 0805 All Transfers Goal Most Recent Value LTG Status new at 12/30/2019 0805 LTG Concho Level minimum assist (75% patient effort) at 12/30/2019 0805 LTG Assistive Device 2 wheeled walker (FWW) at 12/30/2019 0805 Gait Goal Most Recent Value LTG Status new at 12/30/2019 0805 LTG Concho Level minimum assist (75% patient effort) at [...] Physical Therapy Treatment Note Recommended discharge disposition: penitentiary facility Post discharge physical therapy recommendation: Equipment [...] Bed Mobility Supine to Sit, Level of Concho: moderate assist (50% patient effort) Sit to Supine, Level of Concho: moderate assist (50% patient effort) Safety Issues: decreased use of legs for bridging/pushing Impairments: strength decreased Transfers Sit-Stand, Level of Concho: moderate assist (50% patient effort) Stand-Sit, Level of Concho: moderate assist (50% patient effort) [id number], Assistive Device: other (see comments)(UP walker) Safety Issues: balance decreased during turns, step length decreased Impairments: strength decreased Gait Level of Concho: moderate assist (50% patient effort) Assistive Device: [...] LTG Status new at 12/23/2019 1600 LTG Concho Level supervised at 12/23/2019 1600 LTG Assistive Device none at 12/23/2019 1600 All Transfers Goal Most Recent Value LTG Status new at 12/23/2019 1600 LTG Concho Level modified independent at 12/23/2019 1600 LTG Assistive Device 2 wheeled walker (FWW) at 12/23/2019 1600 Gait Goal Most Recent Value LTG Status new at 12/23/2019 1600 LTG Concho Level stand by assist at 12/23/2019 1600 [...] upon request. 12 :[facility] PM [facility] 12/27/2019 12:05 [...] Bed Mobility Supine to Sit, Level of Concho: moderate assist (50% patient effort) Safety Issues: decreased use of legs for bridging/pushing Impairments: strength decreased Transfers Sit-Stand, Level of Concho: moderate assist (50% patient effort) Stand-Sit, Level of Concho: moderate assist (50% patient effort) [id number]-[id number]-[id number], Assistive Device: other (see comments)(UP walker) Safety Issues: balance decreased during turns, step length decreased Impairments: strength decreased Exercises Bed exercises: ankle pumps, quad sets, heel slides, hip abduction/adduction, glut sets Goals Reflects last filed data and may be from multiple contributors. All Bed Mobility Goal Most Recent Value LTG Status new at 12/23/2019 1600 LTG Concho Level supervised at 12/23/2019 1600 LTG Assistive Device none at 12/23/2019 1600 All Transfers Goal Most Recent Value LTG Status new at 12/23/2019 1600 LTG Concho Level modified independent at 12/23/2019 1600 LTG Assistive Device 2 wheeled walker (FWW) at 12/23/2019 1600 Gait Goal Most Recent Value LTG Status new at 12/23/2019 1600 LTG Concho Level stand by assist at 12/23/2019 1600 [...] handled ghada e horn, long handled sponge, cloth edge singer, sock aide Barriers to community-based discharge: Level [...] x1, rest break inbetween set d/t fatigue. [place] for proper tech during ex able to continue seq uence intitially however would require cueing/assist later on in reps. Goals Reflects last filed data and may be from multiple contributors. LB Dressing Goal Most Recent Value LTG Status new at 12/24/2019 0953 LTG Concho Level moderate assist (50% patient effort), verbal cues required at 12/23 0953 LTG Adaptive Equipment cloth edge singer, shoe horn, long handled, sock-aid [AE as needed] at 2019 0953 Toilet Transfer Goal Most Recent Value LTG Status new at 12/24/2019 0953 LTG Concho Level minimum assist (75% patient effort), verbal [...] Bed Mobility Supine to Sit, Level of Concho: moderate assist (50% patient effort) Sit to Supine, Level of Concho: moderate assist (50% patient effort) Safety Issues: decreased use of legs for bridging/pushing Impairments: strength decreased Transfers Sit-Stand, Level of Concho: moderate assist (50% patient effort) Stand-Sit, Level of Concho: moderate assist (50% patient effort) Mda-Uhdeo-Meb, Assistive Device: other (see comments)(Up walker) Safety Issues: balance decreased during turns, step length decreased Impairments: strength decreased Gait Level of Concho: moderate assist (50% patient effort) Assistive Device: [...] LTG Status new at 12/23/2019 1600 LTG Concho Level supervised at 12/23/2019 1600 LTG Assistive Device none at 12/23/2019 1600 All Transfers Goal Most Recent Value LTG Status new at 12/23/2019 1600 LTG Concho Level modified independent at 12/23/2019 1600 LTG Assistive Device 2 wheeled walker (FWW) at 12/23/2019 1600 Gait Goal Most Recent Value LTG Status new at 12/23/2019 1600 LTG Concho Level stand by assist at 12/23/2019 1600 [...] Bed Mobility Supine to Sit, Level of Concho: moderate assist (50% patient effort) Safety Issues: decreased use of legs for bridging/pushing Impairments: strength decreased Transfers Sit-Stand, Level of Concho: moderate assist (50% patient effort) Stand-Sit, Level of Concho: moderate assist (50% patient effort) Imv-Cmkuc-Qom, Assistive Device: other (see comments)(Up walker) Safety Issues: balance decreased during turns, step length decreased Impairments: strength decreased Gait Level of Concho: moderate assist (50% patient effort) Assistive Device: [...] LTG Status new at 12/23/2019 1600 LTG Concho Level supervised at 12/23/2019 1600 LTG Assistive Device none at 12/23/2019 1600 All Transfers Goal Most Recent Value LTG Status new at 12/23/2019 1600 LTG Concho Level modified independent at 12/23/2019 1600 LTG Assistive Device 2 wheeled walker (FWW) at 12/23/2019 1600 Gait Goal Most Recent Value LTG Status new at 12/23/2019 1600 LTG Concho Level stand by assist at 12/23/2019 1600 [...] HIGH Current Discharge Plan Anticipated Discharge Disposition: penitentiary facility Expected DC Date: 12/30/2019 Barriers to Discharge: placement Steps Taken Toward Discharge: Attended morning rounds Next Steps: d/c to [facility] Swing Bed Community Support Services Current Outpt/Agency/Support Groups: none Community Agency Name: none Other Resources: Discharge Transportation Transportation Needs: agency transportation Notes: Pt not medically ready for discharge. Cm called Idalia CM at [facility] and updat ed her on Pt progress. Pt may be ready for d/c Monday. Cm will continue to follow for placem ent needs. Electronically signed: Ja Marcus RN 12/26/2019 11:46 AM lan of [facility] t - 12/26/2019 10:00 AM PDT [...] Bed Mobility Sit to Supine, Level of Concho: maximal assist (25% patient effort), verbal cues requ ired Safety Issues: decreased use of legs for bridging/pushing, decreased use of arms for pushin g/pulling Impairments: strength decreased, pain, impaired balance Transfers Sit-Stand, Level of Concho: moderate assist (50% patient effort), verbal cues require d Stand-Sit, Level of Concho: moderate assist (50% patient effort), verbal cues require d Ynw-Lbkeq-Siu, Assistive Device: 2 wheeled walker (FWW), gait belt Safety Issues: sequencing ability decreased, balance decreased during turns Gait Level of Concho: moderate assist (50% patient effort) Assistive Device: [...] LTG Status new at 12/23/2019 1600 LTG Concho Level supervised at 12/23/2019 1600 LTG Assistive Device none at 12/23/2019 1600 All Transfers Goal Most Recent Value LTG Status new at 12/23/2019 1600 LTG Concho Level modified independent at 12/23/2019 1600 LTG Assistive Device 2 wheeled walker (FWW) at 12/23/2019 1600 Gait Goal Most Recent Value LTG Status new at 12/23/2019 1600 LTG Concho Level stand by assist at 12/23/2019 1600 [...] HIGH Current Discharge Plan Anticipated Discharge Disposition: penitentiary facility Expected DC Date: 12/27/2019 Barriers to Discharge: placement Steps Taken Toward Discharge: Attended rounds Next Steps: d/c to [facility] Community Support Services Current Outpt/Agency/Support Groups: none Community Agency Name: none Other Resources: Discharge Transportation Transportation Needs: agency transportation Notes: Pt not medically ready for discharge. Cm received call from [facility] from [facility]. [...] (Range of Motion), stair training, strengthening, stretching, nigerien ball techniques, w heelchair management/propulsion training Recommended [...] HOB elevated Supine to Sit, Level of Concho: moderate assist (50% patient effort), verbal cues req uired Safety Issues: decreased use of legs for bridging/pushing, decreased use of arms for pushin g/pulling Impairments: strength decreased, pain, impaired balance Transfers Additional Documentation: sit to/from stand Chair-Bed, Level of Concho: moderate assist (50% patient effort), verbal cues require d Etn-Vwead-Swr, Assistive Device: 2 wheeled walker (FWW) Sit-Stand, Level of Concho: moderate assist (50% patient effort), verbal cues require d Stand-Sit, Level of Concho: moderate assist (50% patient effort), verbal cues require d Eru-Iryae-Pbc, Assistive Device: 2 wheeled walker (FWW), gait belt Maintain Weight Bearing Status: able to maintain weight bearing status Safety Issues: sequencing ability decreased, balance decreased during turns Impairments: impaired balance, coordination impaired, pain, decreased flexibility Gait Gait Comments: 4 steps to chair Level of Concho: moderate assist (50% patient effort) Assistive Device: [...] LTG Status new at 12/23/2019 1600 LTG Concho Level supervised at 12/23/2019 1600 LTG Assistive Device none at 12/23/2019 1600 All Transfers Goal Most Recent Value LTG Status new at 12/23/2019 1600 LTG Concho Level modified independent at 12/23/2019 1600 LTG Assistive Device 2 wheeled walker (FWW) at 12/23/2019 1600 Gait Goal Most Recent Value LTG Status new at 12/23/2019 1600 LTG Concho Level stand by assist at 12/23/2019 1600 [...] long handled shoe horn, long handled sponge, cloth edge singer, sock aide(BSC (?)) Barriers to community-based discharge [...] seated in the recliner Grooming, Level of Concho: supervised Assistive Device: none Grooming Assess/Train, Position: sitting Bed Mobility Additional Documentation: supine to/from sit Assistive Device: HOB elevated, bed rails Sit to Supine, Level of Concho: maximal assist (25% patient effort), verbal cues [...] stand, bed to/from chair Chair-Bed, Level of Concho: moderate assist (50% patient effort), verbal cues require d Wmx-Iieqh-Xte, Assistive Device: gait belt Sit-Stand, Level of Concho: moderate assist (50% patient effort), verbal cues require d Stand-Sit, Level of Concho: moderate assist (50% patient effort), verbal cues require d Dpq-Ddjeu-Wey, Assistive Device: 2 wheeled walker (FWW), gait [...] LTG Status new at 12/24/2019 0953 LTG Concho Level moderate assist (50% patient effort), verbal cues required at 12/23 0953 LTG Adaptive Equipment cloth edge singer, shoe horn, long handled, sock-aid [AE as needed] at 2019 0953 Toilet Transfer Goal Most Recent Value LTG Status new at 12/24/2019 0953 LTG Concho Level minimum assist (75% patient effort), verbal [...] HOB elevated Supine to Sit, Level of Concho: moderate assist (50% patient effort), verbal cues req uired Safety Issues: decreased use of arms for pushing/pulling, decreased use of legs for bridgin g/pushing Impairments: decreased flexibility, pain, impaired balance Transfers Additional Documentation: sit to/from stand Sit-Stand, Level of Concho: minimal assist (75% patient effort) Stand-Sit, Level of Concho: minimal assist (75% patient effort) Azq-Wmdlh-Hwt, Assistive Device: 2 wheeled walker (FWW) Maintain Weight Bearing Status: able to maintain weight bearing status Safety Issues: sequencing ability decreased Impairments: decreased flexibility, impaired balance, pain Gait Gait Comments: side stepping to recliner Level of Concho: minimal assist (75% patient effort) Assistive Device: [...] LTG Status new at 12/23/2019 1600 LTG Concho Level supervised at 12/23/2019 1600 LTG Assistive Device none at 12/23/2019 1600 All Transfers Goal Most Recent Value LTG Status new at 12/23/2019 1600 LTG Concho Level modified independent at 12/23/2019 1600 LTG Assistive Device 2 wheeled walker (FWW) at 12/23/2019 1600 Gait Goal Most Recent Value LTG Status new at 12/23/2019 1600 LTG Concho Level stand by assist at 12/23/2019 1600 [...] discharge planning concerns Services Anticipated at Discharge: penitentiary facility Equipment Used at Home: cane, straight, single point, 2 wheeled walker (FWW) Equipment Needed after Discharge: walker, standard Durable Medical Equipment Provider: Pharmacy/Medication Needs: other (see comments)([facility] in [place], [place]) Transportation Needs: agency transportation Initial Plan Anticipated Discharge Disposition: penitentiary facility Expected DC Date: other (see comments)(SNF [...] stated that he would like to go [facility] Swi ng bed if needed before going home. Cm called [facility] and [facility] - Idalia Garduno [phone]. Cm sent referral to [place]. Pt stated that Deanna (daughter) edgardo harmon [...] (Range of Motion), stair training, strengthening, stretching, nigerien ball techniques, wheelchair management/propulsio n training Recommended [...] HOB elevated Supine to Sit, Level of Concho: moderate assist (50% patient effort) Sit to Supine, Level of Concho: maximal assist (25% patient effort) Safety Issues: decreased use of arms for pushing/pulling, decreased use of legs for bridgin g/pushing Impairments: decreased flexibility, impaired balance, pain Transfers Additional Documentation: sit to/from stand Sit-Stand, Level of Concho: minimal assist (75% patient effort) Stand-Sit, Level of Concho: minimal assist (75% patient effort) Iyt-Evxsq-Nry, Assistive Device: 2 wheeled walker (FWW) Maintain [...] LTG Status new at 12/23/2019 1600 LTG Concho Level supervised at 12/23/2019 1600 LTG Assistive Device none at 12/23/2019 1600 All Transfers Goal Most Recent Value LTG Status new at 12/23/2019 1600 LTG Concho Level modified independent at 12/23/2019 1600 LTG Assistive Device 2 wheeled walker (FWW) at 12/23/2019 1600 Gait Goal Most Recent Value LTG Status new at 12/23/2019 1600 LTG Concho Level stand by assist at 12/23/2019 1600 [...] Melquiades Baez DO - 12/22/2019 10:34 AM [facility] Medicine Service: Orthopaedic [...] by: Melquiades Baez DO, 12/22/2019 10:35 AM [facility] lan of Care - Cru z, [...] 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 2. Staff [...] | | | | | [address] [place], | | | | | | [place] [address] | | | | | | [phone] | | | | | | | | +--------+---------+ + + + | 04/21/ | Office | Nephrology | Isiah Jade MD | | 2019 | Visit | | [address] [facility] | | | | | | [address] | | | | | | [address] | | | | | | | | +--------+---------+ + + + | 05/07/ | Office | Cardiology | Charlee Oswald | | | 2019 | Visit | | [address] | | | | | | [address] | | | | | | [place] [address] | | | | | | [phone] | | | | | | | [...] | | | POC | performed at [facility];[address] | | LABORATORY | | | | [address];[place] | | | | | | [address] | | | | + + + + + + + + | Specimen | + + | | + + + + + + + | Performing | Address | City/State/Zipcode | Phone Number | | Organization | | | | + + + + + | [facility] | [address] | [place] [address] | [phone] | + + + + + POC Glucose (01/01/2020 6:29 AM PDT) + + + + + + | Component | Value | Ref Range | Performed | Pathologist | | | | | At | Signature | + + + + + + | Glucose, | 143 (H)Comment: Testing | 65 - 99 mg/dL | [facility] | | | POC | performed at [facility];[address] | | LABORATORY | | | | [address];[place] | | | | | | [address] | | | | + + + + + + + + | Specimen | + + | | + + + + + + + | Performing | Address | City/State/Zipcode | Phone Number | | Organization | | | | + + + + + | [facility] | [address] | [place] [address] | [phone] | + + + + + Basic [...] | 8.6 | 8.5 - 10.5 | [facility] | | | | | mg/dL | LABORATORY | | + + + + + + | Estimated | 23 (L)Comment: GFR <60: | >60 | [facility] | | | GFR | [...] | | | | | performed at [facility];[address] | | | | | | [facility];[place], [place] | | | | | | [address] | | | | + + + + + + + + | Specimen | + + | Blood | + + + + + + + | Performing | Address | City/State/Zipcode | Phone Number | | Organization | | | | + + + + + | [facility] | [address] | [place] [address] | [phone] | + + + + + CBC [...] | | | Absolute | performed at [facility];[address] | K/uL | LABORATORY | | | | [address];[place] | | | | | | [address] | | | | + + + + + + + + | Specimen | + + | Blood | + + + + + + + | Performing | Address | City/State/Zipcode | Phone Number | | Organization | | | | + + + + + | [facility] | [address] | [place] [address] | [phone] | + + + + + POC [...] | | | POC | performed at [facility];[address] | | LABORATORY | | | | [address];[place] | | | | | | [address] | | | | + + + + + + + + | Specimen | + + | | + + + + + + + | Performing | Address | City/State/Zipcode | Phone Number | | Organization | | | | + + + + + | [facility] | [address] | [place] [address] | [phone] | + + + + + POC [...] | | | POC | performed at [facility];[address] | | LABORATORY | | | | [address];[place], [place] | | | | | | [address] | | | | + + + + + + + + | Specimen | + + | | + + + + + + + | Performing | Address | City/State/Zipcode | Phone Number | | Organization | | | | + + + + + | [facility] | [address] [facility] | [place] [address] | [phone] | + + + + + POC [...] | | | POC | performed at [facility];[address] | | LABORATORY | | | | [address];[place], [place] | | | | | | [address] | | | | + + + + + + + + | Specimen | + + | | + + + + + + + | Performing | Address | City/State/Zipcode | Phone Number | | Organization | | | | + + + + + | [facility] | [address] | [place] [address] | [phone] | + + + + + POC [...] | | | POC | performed at [facility];[address] | | LABORATORY | | | | [address];[place] | | | | | | [address] | | | | + + + + + + + + | Specimen | + + | | + + + + + + + | Performing | Address | City/State/Zipcode | Phone Number | | Organization | | | | + + + + + | [facility] | [address] | [place] [address] | [phone] | + + + + + Basic [...] | 8.5 | 8.5 - 10.5 | [facility] | | | | | mg/dL | LABORATORY | | + + + + + + | Estimated | 18 (L)Comment: GFR <60: | >60 | [facility] | | | GFR | [...] | | | | | performed at [facility], [address] | | | | | | [facility], | | | | | | [place] [address] | | | | + + + + + + + + | Specimen | + + | Blood | + + + + + + + | Performing | Address | City/State/Zipcode | Phone Number | | Organization | | | | + + + + + | [facility] | [address] | [place] [address] | [phone] | + + + + + CBC [...] | | | Absolute | performed at [facility], [address] | K/uL | LABORATORY | | | | [address], | | | | | | [place] [address] | | | | + + + + + + + + | Specimen | + + | Blood | + + + + + + + | Performing | Address | City/State/Zipcode | Phone Number | | Organization | | | | + + + + + | [facility] | [address] [facility] [address] [facility] | [place] [address] | [phone] | + + + + + POC Glucose (12/30/2019 8:55 PM PDT) + + + + + + | Component | Value | Ref Range | Performed | Pathologist | | | | | At | Signature | + + + + + + | Glucose, | 192 (H)Comment: Testing | 65 - 99 mg/dL | [facility] | | | POC | performed at [facility];[address] | | LABORATORY | | | | [address];[place] | | | | | | [address] | | | | + + + + + + + + | Specimen | + + | | + + + + + + + | Performing | Address | City/State/Zipcode | Phone Number | | Organization | | | | + + + + + | [facility] | [address] | [place] [address] | [phone] | + + + + + POC Glucose (12/30/2019 4:11 PM PDT) + + + + + + | Component | Value | Ref Range | Performed | Pathologist | | | | | At | Signature | + + + + + + | Glucose, | 130 (H)Comment: Testing | 65 - 99 mg/dL | [facility] | | | POC | performed at [facility];[address] | | LABORATORY | | | | [address];[place], [place] | | | | | | [address] | | | | + + + + + + + + | Specimen | + + | | + + + + + + + | Performing | Address | City/State/Zipcode | Phone Number | | Organization | | | | + + + + + | [facility] | [address] | [place] [address] | [phone] | + + + + + POC [...] | | | POC | performed at [facility];[address] | | LABORATORY | | | | [address];[place] | | | | | | [address] | | | | + + + + + + + + | Specimen | + + | | + + + + + + + | Performing | Address | City/State/Zipcode | Phone Number | | Organization | | | | + + + + + | [facility] | [address] | [place] [address] | [phone] | + + + + + Basic [...] 20 (L)Comment: GFR <60: | >60 | [facility] | | | GFR | [...] | | | | | | [facility] traceable | | | | | | equation.Testing | | | | | | performed at [facility];[address] | | | | | | [facility];[place], [place] | | | | | | [address] | | | | + + + + + + + + | Specimen | + + | Blood | + + + + + + + | Performing | Address | City/State/Zipcode | Phone Number | | Organization | | | | + + + + + | [facility] | [address] [facility] | [place] [address] | [phone] | + + + + + POC [...] | | | POC | performed at [facility];[address] | | LABORATORY | | | | [address];[place], [place] | | | | | | [address] | | | | + + + + + + + + | Specimen | + + | | + + + + + + + | Performing | Address | City/State/Zipcode | Phone Number | | Organization | | | | + + + + + | [facility] | [address] [address] | [place] [address] | [phone] | + + + + + CBC [...] | | | Absolute | performed at [facility];[address] | K/uL | LABORATORY | | | | Rosalia Mccain;[place] | | | | | | [address] | | | | + + + + + + + + | Specimen | + + | Blood | + + + + + + + | Performing | Address | City/State/Zipcode | Phone Number | | Organization | | | | + + + + + | [facility] | [address] | [place] [address] | [phone] | + + + + + POC [...] | | | POC | performed at [facility];888 | | LABORATORY | | | | Rosalia Mccain;[place] | | | | | | [address] | | | | + + + + + + + + | Specimen | + + | | + + + + + + + | Performing | Address | City/State/Zipcode | Phone Number | | Organization | | | | + + + + + | [facility] | [address] | [place] [address] | [phone] | + + + + + Hemoglobin [...] Testing | 39.0 - 50.0 % | [facility] | | | | performed at [facility];888 | | LABORATORY | | | | [address];[place] | | | | | | [address] | | | | + + + + + + + + | Specimen | + + | Blood | + + + + + + + | Performing | Address | City/State/Zipcode | Phone Number | | Organization | | | | + + + + + | [facility] | [address] | [place] [address] | [phone] | + + + + + POC [...] | | | POC | performed at [facility];[address] | | LABORATORY | | | | [address];[place], [place] | | | | | | [address] | | | | + + + + + + + + | Specimen | + + | | + + + + + + + | Performing | Address | City/State/Zipcode | Phone Number | | Organization | | | | + + + + + | [facility] | [address] | [place] [address] | [phone] | + + + + + Hemoglobin [...] [facility] | | | | performed at [facility];888 | | LABORATORY | | | | Rosalia Mccain;[place] | | | | | | [address] | | | | + + + + + + + + | Specimen | + + | Blood | + + + + + + + | Performing | Address | City/State/Zipcode | Phone Number | | Organization | | | | + + + + + | [facility] | [address] | [place] [address] | [phone] | + + + + + POC [...] | | | POC | performed at [facility];[address] | | LABORATORY | | | | [address];[place], [place] | | | | | | [address] | | | | + + + + + + + + | Specimen | + + | | + + + + + + + | Performing | Address | City/State/Zipcode | Phone Number | | Organization | | | | + + + + + | [facility] | [address] | [place] [address] | [phone] | + + + + + POC Glucose (12/29/2019 11:06 AM PDT) + + + + + + | Component | Value | Ref Range | Performed | Pathologist | | | | | At | Signature | + + + + + + | Glucose, | 205 (H)Comment: Testing | 65 - 99 mg/dL | [facility] | | | POC | performed at [facility];[address] | | LABORATORY | | | | [address];[place] | | | | | | [address] | | | | + + + + + + + + | Specimen | + + | | + + + + + + + | Performing | Address | City/State/Zipcode | Phone Number | | Organization | | | | + + + + + | [facility] | [address] | [place] [address] | [phone] | + + + + + Surgical [...] cassette (A1). B. The specimen, labeled "Andres uGzmán, | | | esophagus biopsy," is received [...] | | technical component was performed by [facility], [address] [place] [address] | | | [place] [address] (Commercial Fisher: Padmini Sellers MD; CLIA# | | | [id number]). Professional interpretation was performed [facility] | | | [facility], [address], | | | [place] [address] (Commercial Fisher: Oscar Maynard M.D.; CLIA#: | | | [id number]). Diagnostician: Padmini Sellers | | | MDPathologistElectronically [...] | |The technical component was performed by [facility], [address] [place] [address] (Commercial Fisher: Padmini Sellers MD; CLIA# [id number]). Professional interpretation was performed by | | |[facility], [address] [address] (Commercial Fisher: Oscar Maynard M.D.; CLIA#: [id number]). | | | | | |Diagnostician: Padmini [...] At | + + + | [facility] | [facility] | | Counts Include [address] [facility] | PROVATION | | CenterGastroenterology | | | Patient Name: Andres Guzmán | | | Procedure Date: 12/29/2019 8:36 AMMRN: [id number] | | | of : 1930 | [...] the anesthesiologist and the | | | endoscopic technician in the pre-procedure area in the [...] | | | with Gold probe 7 Gabonese x 5 pulses was successful with | [...] | | | AMNumber of Addenda: 0 [facility] | | | - Check hemoglobin q 6 hours for one day. | | | | | | | | |LAMONT HERNANDEZ MD | | |12/29/2019 10:19:54 AM | | |This report has been signed electronically. | | | | | |Note Initiated On: 12/29/2019 8:36 AM | | |Number of Addenda: 0 | | | | | | [facility] | | + + + + [...] [facility] | | | | performed at [facility];888 | | LABORATORY | | | | [address] Mccain;[place] | | | | | | [address] | | | | + + + + + + + + | Specimen | + + | Blood | + + + + + + + | Performing | Address | City/State/Zipcode | Phone Number | | Organization | | | | + + + + + | [facility] | [address] | [place] [address] | [phone] | + + + + + POC Glucose (12/29/2019 6:06 AM PDT) + + + + + + | Component | Value | Ref Range | Performed | Pathologist | | | | | At | Signature | + + + + + + | Glucose, | 146 (H)Comment: Testing | 65 - 99 mg/dL | [facility] | | | POC | performed at [facility];888 | | LABORATORY | | | | [address]cc[address];[place] | | | | | | [address] | | | | + + + + + + + + | Specimen | + + | | + + + + + + + | Performing | Address | City/State/Zipcode | Phone Number | | Organization | | | | + + + + + | [facility] | [address] | [place] [address] | [phone] | + + + + + CBC [...] | | | Absolute | performed at [facility];[address] | K/uL | LABORATORY | | | | [address]cc[address];[place] | | | | | | [address] | | | | + + + + + + + + | Specimen | + + | Blood | + + + + + + + | Performing | Address | City/State/Zipcode | Phone Number | | Organization | | | | + + + + + | [facility] | [address] | [place] [address] | [phone] | + + + + + Shine [...] | | | | | performed at [facility];[address] | | | | | | [address]alia [facility];[place], [place] | | | | | | [address] | | | | + + + + + + + + | Specimen | + + | Blood | + + + + + + + | Performing | Address | City/State/Zipcode | Phone Number | | Organization | | | | + + + + + | [facility] | [address] | [place] [address] | [phone] | + + + + + Basic [...] | | | | | performed at [facility];[address] | | | | | | [facility];[place], [place] | | | | | | [address] | | | | + + + + + + + + | Specimen | + + | Blood | + + + + + + + | Performing | Address | City/State/Zipcode | Phone Number | | Organization | | | | + + + + + | [facility] | [address] [facility] | [place] [address] | [phone] | + + + + + POC [...] | | | POC | performed at [facility];[address] | | LABORATORY | | | | [address];[place], [place] | | | | | | [address] | | | | + + + + + + + + | Specimen | + + | | + + + + + + + | Performing | Address | City/State/Zipcode | Phone Number | | Organization | | | | + + + + + | [facility] | [address] | [place] [address] | [phone] | + + + + + Hemoglobin and Hematocrit (12/28/2019 10:33 PM PDT) + + + + + + | Component | Value | Ref Range | Performed | Pathologist | | | | | At | Signature | + + + + + + | Hemoglobin | 9.1 (L) | 13.2 - 17.0 | [facility] | | | | | g/dL | LABORATORY | | + + + + + + | Hematocrit | 26.6 (L)Comment: Testing | 39.0 - 50.0 % | [facility] | | | | performed at [facility];888 | | LABORATORY | | | | [address] Mcc[address];[place] | | | | | | [address] | | | | + + + + + + + + | Specimen | + + | Blood | + + + + + + + | Performing | Address | City/State/Zipcode | Phone Number | | Organization | | | | + + + + + | [facility] | [address] | [place] [address] | [phone] | + + + + + POC [...] | | | POC | performed at [facility];888 | | LABORATORY | | | | [address]cc[address];[place] | | | | | | [address] | | | | + + + + + + + + | Specimen | + + | | + + + + + + + | Performing | Address | City/State/Zipcode | Phone Number | | Organization | | | | + + + + + | [facility] | [address] | [place] [address] | [phone] | + + + + + Fecal [...] | | LABORATORY | | | | [facility];[address];[place] [address] | | | | + + + + + + + + | Specimen | + + | Stool - Stool | | specimen (specimen) | + + + + + + + | Performing | Address | City/State/Zipcode | Phone Number | | Organization | | | | + + + + + | [facility] | [address] | [place] [address] | [phone] | + + + + + POC [...] | | | POC | performed at [facility];888 | | LABORATORY | | | | [address] Mccain;[place] | | | | | | [address] | | | | + + + + + + + + | Specimen | + + | | + + + + + + + | Performing | Address | City/State/Zipcode | Phone Number | | Organization | | | | + + + + + | [facility] | [address] | [place] [address] | [phone] | + + + + + Hemoglobin [...] [facility] | | | | performed at [facility];888 | | LABORATORY | | | | [address];[place] | | | | | | [address] | | | | + + + + + + + + | Specimen | + + | Blood | + + + + + + + | Performing | Address | City/State/Zipcode | Phone Number | | Organization | | | | + + + + + | [facility] | [address] | [place] [address] | [phone] | + + + + + POC Glucose (12/28/2019 11:59 AM PDT) + + + + + + | Component | Value | Ref Range | Performed | Pathologist | | | | | At | Signature | + + + + + + | Glucose, | 163 (H)Comment: Testing | 65 - 99 mg/dL | [facility] | | | POC | performed at [facility];888 | | LABORATORY | | | | [address]cc[address];[place] | | | | | | [address] | | | | + + + + + + + + | Specimen | + + | | + + + + + + + | Performing | Address | City/State/Zipcode | Phone Number | | Organization | | | | + + + + + | [facility] | [address] | [place] [address] | [phone] | + + + + + POC [...] | | | POC | performed at [facility];888 | | LABORATORY | | | | [address];[place], [place] | | | | | | [address] | | | | + + + + + + + + | Specimen | + + | | + + + + + + + | Performing | Address | City/State/Zipcode | Phone Number | | Organization | | | | + + + + + | [facility] | [address] | [place] [address] | [phone] | + + + + + CBC [...] | | | Absolute | performed at [facility], [address] | K[address] | LABORATORY | | | | [address], | | | | | | [place] [address] | | | | + + + + + + + + | Specimen | + + | Blood | + + + + + + + | Performing | Address | City/State/Zipcode | Phone Number | | Organization | | | | + + + + + | [facility] | [address] | [place] [address] | [phone] | + + + + + Basic [...] | | | | | performed at [facility], [address] | | | | | | [facility], | | | | | | [place] [address] | | | | + + + + + + + + | Specimen | + + | Blood | + + + + + + + | Performing | Address | City/State/Zipcode | Phone Number | | Organization | | | | + + + + + | [facility] | [address] | [place] [address] | [phone] | + + + + + POC [...] | | | POC | performed at [facility];[address] | | LABORATORY | | | | [address];[place], [place] | | | | | | [address] | | | | + + + + + + + + | Specimen | + + | | + + + + + + + | Performing | Address | City/State/Zipcode | Phone Number | | Organization | | | | + + + + + | [facility] | [address] | [place] [address] | [phone] | + + + + + POC [...] | | | POC | performed at [facility];[address] | | LABORATORY | | | | [address];[place] | | | | | | [address] | | | | + + + + + + + + | Specimen | + + | | + + + + + + + | Performing | Address | City/State/Zipcode | Phone Number | | Organization | | | | + + + + + | [facility] | [address] | [place] [address] | [phone] | + + + + + Red [...] | [facility] | | | COMMENT | [facility];[address] | LABORATORY | | | | [address];[place] [address] | | | | + + + + + + + + | Specimen | + + | | + + + + + + + | Performing | Address | City/State/Zipcode | Phone Number | | Organization | | | | + + + + + | [facility] | [address] | [place] [address] | [phone] | + + + + + Type [...] + + + | BB BAND | [id number] | | [facility] | | | | | | LABORATORY | | + + + + + + | UNIT # | [id number] | | [facility] | | | | [...] + + + | UNIT # | [id number] | | [facility] | | | | [...] | | | RESULT | performed at [facility];888 | | LABORATORY | | | | [address];[place], [place] | | | | | | [address] | | | | + + + + + + + + | Specimen | + + | Blood | + + + + + + + | Performing | Address | City/State/Zipcode | Phone Number | | Organization | | | | + + + + + | [facility] | [address] | [place] [address] | [phone] | + + + + + POC [...] | | | POC | performed at [facility];888 | | LABORATORY | | | | [address];[place], [place] | | | | | | [address] | | | | + + + + + + + + | Specimen | + + | | + + + + + + + | Performing | Address | City/State/Zipcode | Phone Number | | Organization | | | | + + + + + | [facility] | [address] | [place] [address] | [phone] | + + + + + CBC [...] [address], | | | | | | [place] [address] | | | | + + + + + + + + | Specimen | + + | | + + + + + + + | Performing | Address | City/State/Zipcode | Phone Number | | Organization | | | | + + + + + | [facility] | [address] | [place] [address] | [phone] | + + + + + Procalcitonin [...] | | | | | | at [facility];[address] [place] [address] | | | | | | [facility];[place] [address] | | | | + + + + + + + + | Specimen | + + | Blood | + + + + + + + | Performing | Address | City/State/Zipcode | Phone Number | | Organization | | | | + + + + + | [facility] | [address] | [place] [address] | [phone] | + + + + + Basic [...] | | | | | | MDRD [facility] traceable | | | | | | equation.Testing | | | | | | performed at [facility], [address] | | | | | | [facility], | | | | | | [place] [address] | | | | + + + + + + + + | Specimen | + + | Blood | + + + + + + + | Performing | Address | City/State/Zipcode | Phone Number | | Organization | | | | + + + + + | [facility] | [address] | [place] [address] | [phone] | + + + + + Vitamin D, Deficiency Screen (25-Hydroxy) (12/27/2019 5:04 AM PDT) + + + + + + | Component | Value | Ref Range | Performed | Pathologist | | | | | At | Signature | + + + + + + | Vit D, | 25.2 (L)Comment: Vitamin | 30.0 - 100.0 | [facility] | | | 25-Hydroxy | D deficiency has been | ng/mL | LABORATORY | | | | defined by the [facility] | | | | | | [facility] and an | | | | | [...] IOM | | | | | | ([facility]). | | | | | [...] | | | | | performed at [facility], | | | | | | [address], | | | | | | [facility] [address] | | | | + + + + + + + + | Specimen | + + | Blood | + + + + + + + | Performing | Address | City/State/Zipcode | Phone Number | | Organization | | | | + + + + + | [facility] | [address] | [place] [address] | [phone] | + + + + + Potassium (12/27/2019 12:08 AM PDT) + + + + + + | Component | Value | Ref Range | Performed | Pathologist | | | | | At | Signature | + + + + + + | K | 4.0Comment: Testing | 3.5 - 4.9 | [facility] | | | | performed at [facility];888 | mmol/L | LABORATORY | | | | [address];[place] | | | | | | [address] | | | | + + + + + + + + | Specimen | + + | Blood | + + + + + + + | Performing | Address | City/State/Zipcode | Phone Number | | Organization | | | | + + + + + | [facility] | [address] | [place] [address] | [phone] | + + + + + Magnesium (12/27/2019 12:08 AM PDT) + + + + + + | Component | Value | Ref Range | Performed | Pathologist | | | | | At | Signature | + + + + + + | Magnesium | 2.2Comment: Testing | 1.7 - 2.4 mg/dL | [facility] | | | | performed at [facility];[address] | | LABORATORY | | | | [address];[place] | | | | | | [address] | | | | + + + + + + + + | Specimen | + + | Blood | + + + + + + + | Performing | Address | City/State/Zipcode | Phone Number | | Organization | | | | + + + + + | [facility] | [address] | [place] [address] | [phone] | + + + + + ECG [...] | | | | | YANIV ROONEY ([id number]) | | | | | | on [...] | | | POC | performed at [facility];[address] | | LABORATORY | | | | [address];[place] | | | | | | [address] | | | | + + + + + + + + | Specimen | + + | | + + + + + + + | Performing | Address | City/State/Zipcode | Phone Number | | Organization | | | | + + + + + | [facility] | [address] | [place] [address] | [phone] | + + + + + POC Glucose (12/26/2019 5:02 PM PDT) + + + + + + | Component | Value | Ref Range | Performed | Pathologist | | | | | At | Signature | + + + + + + | Glucose, | 154 (H)Comment: Testing | 65 - 99 mg/dL | [facility] | | | POC | performed at [facility];[address] | | LABORATORY | | | | [address];[place], [place] | | | | | | [address] | | | | + + + + + + + + | Specimen | + + | | + + + + + + + | Performing | Address | City/State/Zipcode | Phone Number | | Organization | | | | + + + + + | [facility] | [address] | [place] [address] | [phone] | + + + + + Complement [...] | | | COMPLEMENT | performed at [facility], | | LABORATORY | | | | [address], | | | | | | [place] [address] | | | | + + + + + + + + | Specimen | + + | | + + + + + + + | Performing | Address | City/State/Zipcode | Phone Number | | Organization | | | | + + + + + | [facility] | [address] | [place] [address] | [phone] | + + + + + Complement C3 Ag (12/26/2019 12:33 PM PDT) + + + + + + | Component | Value | Ref Range | Performed | Pathologist | | | | | At | Signature | + + + + + + | C3 | 53 (L)Comment: Testing | 82 - 167 mg/dL | [facility] | | | COMPLEMENT | performed at [facility], | | LABORATORY | | | | [address], | | | | | | [facility] [address] | | | | + + + + + + + + | Specimen | + + | | + + + + + + + | Performing | Address | City/State/Zipcode | Phone Number | | Organization | | | | + + + + + | [facility] | [address] | [place] [address] | [phone] | + + + + + POC Glucose (12/26/2019 11:15 AM PDT) + + + + + + | Component | Value | Ref Range | Performed | Pathologist | | | | | At | Signature | + + + + + + | Glucose, | 161 (H)Comment: Testing | 65 - 99 mg/dL | [facility] | | | POC | performed at [facility];[address] | | LABORATORY | | | | [address];[place], [place] | | | | | | [address] | | | | + + + + + + + + | Specimen | + + | | + + + + + + + | Performing | Address | City/State/Zipcode | Phone Number | | Organization | | | | + + + + + | [facility] | [address] | [place] [address] | [phone] | + + + + + POC [...] | | | POC | performed at [facility];[address] | | LABORATORY | | | | [address];[place], [place] | | | | | | [address] | | | | + + + + + + + + | Specimen | + + | | + + + + + + + | Performing | Address | City/State/Zipcode | Phone Number | | Organization | | | | + + + + + | [facility] | [address] | [place] [address] | [phone] | + + + + + Parathyroid Hormone, Intraoperative (12/26/2019 4:25 AM PDT) + + + + + + | Component | Value | Ref Range | Performed | Pathologist | | | | | At | Signature | + + + + + + | PTH Intact | 167.0 (H)Comment: | 8.7 - 79.6 | [facility] | | | | Testing performed at | pg/mL | LABORATORY | | | | [facility];[address];[place] [address] | | | | + + + + + + + + | Specimen | + + | | + + + + + + + | Performing | Address | City/State/Zipcode | Phone Number | | Organization | | | | + + + + + | [facility] | [address] | [place] [address] | [phone] | + + + + + Renal [...] 13 (L)Comment: GFR <60: | >60 | [facility] | | | GFR | [...] | | | | | performed at [facility], [address] | | | | | [facility], | | | | | | [place] [address] | | | | + + + + + + + + | Specimen | + + | Blood | + + + + + + + | Performing | Address | City/State/Zipcode | Phone Number | | Organization | | | | + + + + + | [facility] | [address] | [place] [address] | [phone] | + + + + + POC Glucose (12/25/2019 8:53 PM PDT) + + + + + + | Component | Value | Ref Range | Performed | Pathologist | | | | | At | Signature | + + + + + + | Glucose, | 169 (H)Comment: Testing | 65 - 99 mg/dL | [facility] | | | POC | performed at [facility];[address] | | LABORATORY | | | | [address];[place] | | | | | | [id number] | | | | + + + + + + + + | Specimen | + + | | + + + + + + + | Performing | Address | City/State/Zipcode | Phone Number | | Organization | | | | + + + + + | [facility] | [address] | [place] [address] | [phone] | + + + + + POC Glucose (12/25/2019 5:13 PM PDT) + + + + + + | Component | Value | Ref Range | Performed | Pathologist | | | | | At | Signature | + + + + + + | Glucose, | 133 (H)Comment: Testing | 65 - 99 mg/dL | [facility] | | | POC | performed at [facility];[address] | | LABORATORY | | | | [address];[place] | | | | | | [address] | | | | + + + + + + + + | Specimen | + + | | + + + + + + + | Performing | Address | City/State/Zipcode | Phone Number | | Organization | | | | + + + + + | [facility] | [address] | [place] [address] | [phone] | + + + + + ECHO [...] | | | POC | performed at [facility];[address] | | LABORATORY | | | | [address];[place], [place] | | | | | | [address] | | | | + + + + + + + + | Specimen | + + | | + + + + + + + | Performing | Address | City/State/Zipcode | Phone Number | | Organization | | | | + + + + + | [facility] | [address] | [place] [address] | [phone] | + + + + + POC [...] | | | POC | performed at [facility];[address] | | LABORATORY | | | | [address];[place] | | | | | | [address] | | | | + + + + + + + + | Specimen | + + | | + + + + + + + | Performing | Address | City/State/Zipcode | Phone Number | | Organization | | | | + + + + + | [facility] | [address] | [place] [address] | [phone] | + + + + + CK Total (12/25/2019 4:25 AM PDT) + + + + + + | Component | Value | Ref Range | Performed | Pathologist | | | | | At | Signature | + + + + + + | CK TOTAL | 104Comment: Testing | 55 - 400 U/L | [facility] | | | | performed at [facility];[address] | | LABORATORY | | | | [address];[place] | | | | | | [address] | | | | + + + + + + + + | Specimen | + + | Blood | + + + + + + + | Performing | Address | City/State/Zipcode | Phone Number | | Organization | | | | + + + + + | [facility] | [address] | [place] [address] | [phone] | + + + + + Renal [...] 13 (L)Comment: GFR <60: | >60 | [facility] | | | GFR | [...] | | | | | performed at [facility], [address] | | | | | | [facility], | | | | | | [place] [address] | | | | + + + + + + + + | Specimen | + + | Blood | + + + + + + + | Performing | Address | City/State/Zipcode | Phone Number | | Organization | | | | + + + + + | [facility] | [address] | [place] [address] | [phone] | + + + + + Cytoplasmic [...] | | | | | | [address] [facility], | | | | | | [facility] [address] | | | | + + + + + + + + | Specimen | + + | Blood | + + + + + + + | Performing | Address | City/State/Zipcode | Phone Number | | Organization | | | | + + + + + | [facility] | [address] | [place] [address] | [phone] | + + + + + Sedimentation [...] | | | | | [place] [address] | | | | + + + + + + + + | Specimen | + + | Blood | + + + + + + + | Performing | Address | City/State/Zipcode | Phone Number | | Organization | | | | + + + + + | [facility] | [address] | [place] [address] | [phone] | + + + + + Immunoglobulin, Free Light Chain (12/25/2019 4:22 AM PDT) + + + + + + | Component | Value | Ref Range | Performed | Pathologist | | | | | At | Signature | + + + + + + | Hoven Free | 121.2 (H) | 3.3 - [...] + + + + + + | Hoven/Lambd | 1.25Comment: Testing | 0.26 - 1.65 | [facility] | | | a Free | performed at [facility] | | LABORATORY | | | Light Chain | [place], [address] | | | | | Ratio | [place] [address] | | | | + + + + + + + + | Specimen | + + | Blood | + + + + + + + | Performing | Address | City/State/Zipcode | Phone Number | | Organization | | | | + + + + + | [facility] | [address] | [place] [address] | [phone] | + + + + + Glomerular [...] [place] | | | | | | [address] | | | | + + + + + + + + | Specimen | + + | Blood | + + + + + + + | Performing | Address | City/State/Zipcode | Phone Number | | Organization | | | | + + + + + | [facility] | [address] | [place] [address] | [phone] | + + + + + Hepatitis [...] | | | | | 0.9The [facility] recommends | | | | | | that a positive HCV | | | | | | antibody resultbe | | | | | | followed up with a HCV | | | | | | Nucleic Acid | | | | | | Amplificationtest | | | | | | ([id number]).Testing | | | | | | performed at [employer], | | | | | | [address], | | | | | | [facility] [address] | | | | + + + + + + + + | Specimen | + + | Blood | + + + + + + + | Performing | Address | City/State/Zipcode | Phone Number | | Organization | | | | + + + + + | [facility] | [address] | [place] [address] | [phone] | + + + + + CK Total (12/25/2019 4:22 AM PDT) + + + + + + | Component | Value | Ref Range | Performed | Pathologist | | | | | At | Signature | + + + + + + | CK TOTAL | 100Comment: Testing | 55 - 400 U/L | [facility] | | | | performed at [facility];[address] | | LABORATORY | | | | [address];[place], [place] | | | | | | [address] | | | | + + + + + + + + | Specimen | + + | Blood | + + + + + + + | Performing | Address | City/State/Zipcode | Phone Number | | Organization | | | | + + + + + | [facility] | [address] | [place] [address] | [phone] | + + + + + Lactate Dehydrogenase (12/25/2019 4:22 AM PDT) + + + + + + | Component | Value | Ref Range | Performed | Pathologist | | | | | At | Signature | + + + + + + | LDH TOTAL | 154Comment: Testing | 120 - 246 U/L | [facility] | | | | performed at [facility];[address] | | LABORATORY | | | | [address];[place] | | | | | | [address] | | | | + + + + + + + + | Specimen | + + | Blood | + + + + + + + | Performing | Address | City/State/Zipcode | Phone Number | | Organization | | | | + + + + + | [facility] | [address] | [place] [address] | [phone] | + + + + + Magnesium (12/25/2019 4:22 AM PDT) + + + + + + | Component | Value | Ref Range | Performed | Pathologist | | | | | At | Signature | + + + + + + | Magnesium | 2.5 (H)Comment: Testing | 1.7 - 2.4 mg/dL | [facility] | | | | performed at [facility], [address] | | LABORATORY | | | | [address], | | | | | | [place] [address] | | | | + + + + + + + + | Specimen | + + | Blood | + + + + + + + | Performing | Address | City/State/Zipcode | Phone Number | | Organization | | | | + + + + + | [facility] | [address] | [place] [address] | [phone] | + + + + + Protein, [...] LABORATORY | | | | performed at [facility], [address] | | | | | [address], | | | | | | [place] [address] | | | | + + + + + + + + | Specimen | + + | | + + + + + + + | Performing | Address | City/State/Zipcode | Phone Number | | Organization | | | | + + + + + | [facility] | [address] | [place] [address] | [phone] | + + + + + Creatinine, Urine, Random (12/25/2019 12:01 AM PDT) + + + + + + | Component | Value | Ref Range | Performed | Pathologist | | | | | At | Signature | + + + + + + | Creatinine, | 139.0Comment: NO NORMAL | mg/dL | [facility] | | | random | RANGE ESTABLISHEDTesting | | LABORATORY | | | urine | performed at [facility], [address] | | | | | | [address], | | | | | | [place] [address] | | | | + + + + + + + + | Specimen | + + | | + + + + + + + | Performing | Address | City/State/Zipcode | Phone Number | | Organization | | | | + + + + + | [facility] | [address] | [place] [address] | [phone] | + + + + + Protein/Creatinine Ratio, Urine (12/25/2019 12:01 AM PDT) + + + + + + | Component | Value | Ref Range | Performed | Pathologist | | | | | At | Signature | + + + + + + | PRO/CREA | 0.942Comment: Testing | | [facility] | | | RATIO,URINE | performed at [facility], [address] | | LABORATORY | | | | [address], | | | | | | [place] [address] | | | | + + + + + + + + | Specimen | + + | Urine | + + + + + + + | Performing | Address | City/State/Zipcode | Phone Number | | Organization | | | | + + + + + | [facility] | [address] | [place] [address] | [phone] | + + + + + POC [...] | | | POC | performed at [facility];[address] | | LABORATORY | | | | [address];[place], [place] | | | | | | [address] | | | | + + + + + + + + | Specimen | + + | | + + + + + + + | Performing | Address | City/State/Zipcode | Phone Number | | Organization | | | | + + + + + | [facility] | [address] | [place] [address] | [phone] | + + + + + POC [...] | | | POC | performed at [facility];[address] | | LABORATORY | | | | [address];[place], [place] | | | | | | [address] | | | | + + + + + + + + | Specimen | + + | | + + + + + + + | Performing | Address | City/State/Zipcode | Phone Number | | Organization | | | | + + + + + | [facility] | [address] | [place] [address] | [phone] | + + + + + ECG [...] | | | Arterial, | performed at [facility];[address] | | LABORATORY | | | POC | [address];[place], [place] | | | | | | [address] | | | | + + + + + + + + | Specimen | + + | | + + + + + + + | Performing | Address | City/State/Zipcode | Phone Number | | Organization | | | | + + + + + | [facility] | [address] | [place] [address] | [phone] | + + + + + Coronavirus (COVID-19) NAAT (12/24/2019 1:10 PM PDT) + + + + + + | Component | Value | Ref Range | Performed | Pathologist | | | | | At | Signature | + + + + + + | SARS-CoV-2, | NEGATIVEComment: Testing | NEG | [facility] | | | NAAT | performed at [facility];[address] | | LABORATORY | | | (COVID-19) | [address];[place] | | | | | | [address] | | | | + + + + + + + + | Specimen | + + | Tissue - Entire | | nasopharynx (body | | structure) | + + + + + + + | Performing | Address | City/State/Zipcode | Phone Number | | Organization | | | | + + + + + | [facility] | [address] | [place] [address] | [phone] | + + + + + Culture, [...] | | LABORATORY | | | | Blvd;[place] [address] | | | | + + + + + + | RESULT | NO GROWTH 6 DAYS | | [facility] | | | | | | LABORATORY | | + + + + + + | RESULT | Testing performed at | | [facility] | | | | [facility], [address] | | LABORATORY | | | | [place], [place] | | | | | | [address]Udwkolc: Testing | | | | | | performed at [facility], [address] | | | | | | [address], [place], [place] | | | | | | [address] | | | | + + + + + + + + | Specimen | + + | Blood - Peripheral | | blood specimen | | (specimen) | + + + + + + + | Performing | Address | City/State/Zipcode | Phone Number | | Organization | | | | + + + + + | [facility] | [address] | [place] [address] | [phone] | + + + + + Culture, [...] | [facility] | | | Requests | [facility];[address] | | LABORATORY | | | | [address];[place] [address] | | | | + + + + + + | RESULT | NO GROWTH 6 DAYS | | [facility] | | | | | | LABORATORY | | + + + + + + | RESULT | Testing performed at | | [facility] | | | | [facility]CL, [address] | | LABORATORY | | | | [place], [place] | | | | | | [address]Xodstat: Testing | | | | | | performed at [facility], [address] | | | | | | [address], [place], [place] | | | | | | [address] | | | | + + + [...] [facility] | [address] | [place] [address] | [phone] | + + + + + Urinalysis [...] - 1.030 | [facility] | | | [place], | | | LABORATORY | | | [...] | 1+ (A)Comment: Testing | NONE | [facility] | | | Urine | performed at [facility], [address] | | LABORATORY | | | | [address], | | | | | | [place] [address] | | | | + + + [...] | + + + + + | [facility] | [address] | [place] [address] | [phone] | + + + + + Sodium, [...] | | | urine | performed at [facility], [address] | | | | | | [address], | | | | | | [place] [address] | | | | + + + [...] | + + + + + | [facility] | [address] | [place] [address] | [phone] | + + + + + Creatinine, Urine, Random (12/24/2019 12:45 PM PDT) + + + + + + | Component | Value | Ref Range | Performed | Pathologist | | | | | At | Signature | + + + + + + | Creatinine, | 70.0Comment: NO NORMAL | mg/dL | [facility] | | | random | RANGE ESTABLISHEDTesting | | LABORATORY | | | urine | performed at [facility], [address] | | | | | | [address], | | | | | | [place] [address] | | | | + + + [...] | + + + + + | [facility] | [address] | [place] [address] | [phone] | + + + + + Lactic Acid (12/24/2019 12:27 PM PDT) + + + + + + | Component | Value | Ref Range | Performed | Pathologist | | | | | At | Signature | + + + + + + | Lactate, | 1.6Comment: Testing | 0.4 - 2.0 | [facility] | | | Serum | performed at [facility];[address] | mmol/L | LABORATORY | | | | [address];[place], [place] | | | | | | [address] | | | | + + + + + + + + | Specimen | + + | Blood | + + + + + + + | Performing | Address | City/State/Zipcode | Phone Number | | Organization | | | | + + + + + | [facility] | [address] | [place] [address] | [phone] | + + + + + Procalcitonin (12/24/2019 12:27 PM PDT) + + + + + + | Component | Value | Ref Range | Performed | Pathologist | | | | | At | Signature | + + + + + + | PROCALCITON | 0.69 (H)Comment: | <0.5 ng/mL | [facility] | | | IN | [...] | | | | | | at [facility];[address] [place] [address] | | | | | | [facility];[place] [address] | | | | + + + + + + + + | Specimen | + + | Blood | + + + + + + + | Performing | Address | City/State/Zipcode | Phone Number | | Organization | | | | + + + + + | [facility] | [address] | [place] [address] | [phone] | + + + + + POC [...] | | | POC | performed at [facility];[address] | | LABORATORY | | | | [address];[place] | | | | | | [address] | | | | + + + + + + + + | Specimen | + + | | + + + + + + + | Performing | Address | City/State/Zipcode | Phone Number | | Organization | | | | + + + + + | [facility] | [address] | [place] [address] | [phone] | + + + + + POC [...] | | | POC | performed at [facility];[address] | | LABORATORY | | | | [address];[place], [place] | | | | | | [address] | | | | + + + + + + + + | Specimen | + + | | + + + + + + + | Performing | Address | City/State/Zipcode | Phone Number | | Organization | | | | + + + + + | [facility] | [address] | [place] [address] | [phone] | + + + + + CBC [...] LABORATORY | | | | performed at [facility];[address] | | | | | | [address];[place], [place] | | | | | | [address] | | | | + + + + + + + + | Specimen | + + | Blood | + + + + + + + | Performing | Address | City/State/Zipcode | Phone Number | | Organization | | | | + + + + + | [facility] | [address] | [place] [address] | [phone] | + + + + + Basic [...] | | | | | performed at [facility], [address] | | | | | | [facility], | | | | | | [place] [address] | | | | + + + + + + + + | Specimen | + + | Blood | + + + + + + + | Performing | Address | City/State/Zipcode | Phone Number | | Organization | | | | + + + + + | [facility] | [address] | [place] [address] | [phone] | + + + + + POC Glucose (12/23/2019 8:35 PM PDT) + + + + + + | Component | Value | Ref Range | Performed | Pathologist | | | | | At | Signature | + + + + + + | Glucose, | 135 (H)Comment: Testing | 65 - 99 mg/dL | [facility] | | | POC | performed at [facility];[address] | | LABORATORY | | | | [address];[place] | | | | | | [address] | | | | + + + + + + + + | Specimen | + + | | + + + + + + + | Performing | Address | City/State/Zipcode | Phone Number | | Organization | | | | + + + + + | [facility] | [address] | [place] [address] | [phone] | + + + + + POC [...] | | | POC | performed at [facility];[address] | | LABORATORY | | | | [address];[place], [place] | | | | | | [address] | | | | + + + + + + + + | Specimen | + + | | + + + + + + + | Performing | Address | City/State/Zipcode | Phone Number | | Organization | | | | + + + + + | [facility] | [address] | [place] [address] | [phone] | + + + + + POC [...] | | | POC | performed at [facility];[address] | | LABORATORY | | | | [address];[place] | | | | | | [address] | | | | + + + + + + + + | Specimen | + + | | + + + + + + + | Performing | Address | City/State/Zipcode | Phone Number | | Organization | | | | + + + + + | [facility] | [address] | [place] [address] | [phone] | + + + + + POC Glucose (12/23/2019 7:21 AM PDT) + + + + + + | Component | Value | Ref Range | Performed | Pathologist | | | | | At | Signature | + + + + + + | Glucose, | 122 (H)Comment: Testing | 65 - 99 mg/dL | [facility] | | | POC | performed at [facility];[address] | | LABORATORY | | | | [address];[place] | | | | | | [address] | | | | + + + + + + + + | Specimen | + + | | + + + + + + + | Performing | Address | City/State/Zipcode | Phone Number | | Organization | | | | + + + + + | [facility] | [address] | [place] [address] | [phone] | + + + + + Basic [...] | | | | | performed at [facility];[address] | | | | | | [facility];[place], [place] | | | | | | [address] | | | | + + + + + + + + | Specimen | + + | Blood | + + + + + + + | Performing | Address | City/State/Zipcode | Phone Number | | Organization | | | | + + + + + | [facility] | [address] [facility] | [place] [address] | [phone] | + + + + + Phosphorus (12/23/2019 4:04 AM PDT) + + + + + + | Component | Value | Ref Range | Performed | Pathologist | | | | | At | Signature | + + + + + + | Phosphorus | 4.6Comment: Testing | 2.3 - 4.8 mg/dL | [facility] | | | | performed at [facility];8 | | LABORATORY | | | | [facility];[place], [place] | | | | | | [address] | | | | + + + + + + + + | Specimen | + + | Blood | + + + + + + + | Performing | Address | City/State/Zipcode | Phone Number | | Organization | | | | + + + + + | [facility] | [address] | [place] [address] | [phone] | + + + + + Magnesium (12/23/2019 4:04 AM PDT) + + + + + + | Component | Value | Ref Range | Performed | Pathologist | | | | | At | Signature | + + + + + + | Magnesium | 2.1Comment: Testing | 1.7 - 2.4 mg/dL | [facility] | | | | performed at [facility];[address] | | LABORATORY | | | | [address];[place] | | | | | | [address] | | | | + + + + + + + + | Specimen | + + | Blood | + + + + + + + | Performing | Address | City/State/Zipcode | Phone Number | | Organization | | | | + + + + + | [facility] | [address] | [place] [address] | [phone] | + + + + + CBC [...] LABORATORY | | | | performed at [facility] | | | | | | [address];[place] | | | | | | [address] | | | | + + + + + + + + | Specimen | + + | Blood | + + + + + + + | Performing | Address | City/State/Zipcode | Phone Number | | Organization | | | | + + + + + | [facility] | [address] | [place] [address] | [phone] | + + + + + Hemoglobin (12/22/2019 9:37 PM PDT) + + + + + + | Component | Value | Ref Range | Performed | Pathologist | | | | | At | Signature | + + + + + + | Hemoglobin | 9.1 (L)Comment: Testing | 13.2 - 17.0 | [facility] | | | | performed at [facility];888 | g/dL | LABORATORY | | | | [address];[place] | | | | | | [address] | | | | + + + + + + + + | Specimen | + + | Blood | + + + + + + + | Performing | Address | City/State/Zipcode | Phone Number | | Organization | | | | + + + + + | [facility] | [address] | [place] [address] | [phone] | + + + + + Hematocrit (12/22/2019 9:37 PM PDT) + + + + + + | Component | Value | Ref Range | Performed | Pathologist | | | | | At | Signature | + + + + + + | Hematocrit | 27.4 (L)Comment: Testing | 39.0 - 50.0 % | [facility] | | | | performed at [facility];[address] | | LABORATORY | | | | [address] [address];[place] | | | | | | [id number] | | | | + + + + + + + + | Specimen | + + | Blood | + + + + + + + | Performing | Address | City/State/Zipcode | Phone Number | | Organization | | | | + + + + + | [facility] | [address] | [place] [address] | [phone] | + + + + + POC [...] | | | POC | performed at [facility];[address] | | LABORATORY | | | | [address] [address];[place] | | | | | | [address] | | | | + + + + + + + + | Specimen | + + | | + + + + + + + | Performing | Address | City/State/Zipcode | Phone Number | | Organization | | | | + + + + + | [facility] | [address] | [place] [address] | [phone] | + + + + + POC Glucose (12/22/2019 5:32 PM PDT) + + + + + + | Component | Value | Ref Range | Performed | Pathologist | | | | | At | Signature | + + + + + + | Glucose, | 153 (H)Comment: Testing | 65 - 99 mg/dL | [facility] | | | POC | performed at [facility];[address] | | LABORATORY | | | | [address];[place] | | | | | | [address] | | | | + + + + + + + + | Specimen | + + | | + + + + + + + | Performing | Address | City/State/Zipcode | Phone Number | | Organization | | | | + + + + + | [facility] | [address] | [place] [address] | [phone] | + + + + + Red [...] | [facility] | | | COMMENT | [facility] – [place];[address] | | LABORATORY | | | | Blvd;[place] [address] | | | | + + + + + + + + | Specimen | + + | | + + + + + + + | Performing | Address | City/State/Zipcode | Phone Number | | Organization | | | | + + + + + | [facility] | [address] | [place] [address] | [phone] | + + + + + POC Glucose (12/22/2019 10:38 AM PDT) + + + + + + | Component | Value | Ref Range | Performed | Pathologist | | | | | At | Signature | + + + + + + | Glucose, | 161 (H)Comment: Testing | 65 - 99 mg/dL | [facility] | | | POC | performed at [facility];[address] | | LABORATORY | | | | [address];[place], [place] | | | | | | [address] | | | | + + + + + + + + | Specimen | + + | | + + + + + + + | Performing | Address | City/State/Zipcode | Phone Number | | Organization | | | | + + + + + | [facility] | [address] | [place] [address] | [phone] | + + + + + NATHALIA [...] | | | POC | performed at [facility];888 | g/dL | LABORATORY | | | | [address];[place], [place] | | | | | | [address] | | | | + + + + + + + + | Specimen | + + | | + + + + + + + | Performing | Address | City/State/Zipcode | Phone Number | | Organization | | | | + + + + + | [facility] | [address] | [place] [address] | [phone] | + + + + + POC [...] | | | POC | performed at [facility];888 | g/dL | LABORATORY | | | | [address];[place], [place] | | | | | | [address] | | | | + + + + + + + + | Specimen | + + | | + + + + + + + | Performing | Address | City/State/Zipcode | Phone Number | | Organization | | | | + + + + + | [facility] | [address] | [place] [address] | [phone] | + + + + + POC [...] | | | POC | performed at [facility];888 | g/dL | LABORATORY | | | | [address];[place] | | | | | | [address] | | | | + + + + + + + + | Specimen | + + | | + + + + + + + | Performing | Address | City/State/Zipcode | Phone Number | | Organization | | | | + + + + + | [facility] | [address] | [place] [address] | [phone] | + + + + + POC [...] (L)Comment: Testing | 13.7 - 16.7 | [facility] | | | POC | performed at [facility];888 | g/dL | LABORATORY | | | | [address];[place], [place] | | | | | | [address] | | | | + + + + + + + + | Specimen | + + | | + + + + + + + | Performing | Address | City/State/Zipcode | Phone Number | | Organization | | | | + + + + + | [facility] | [address] | [place] [address] | [phone] | + + + + + Type [...] + + + | BB BAND | [id number] | | [facility] | | | | | | LABORATORY | | + + + + + + | UNIT # | [id number] | | [facility] | | | | [...] | | | RESULT | performed at [facility];[address] | | LABORATORY | | | | [address];[place], [place] | | | | | | [address] | | | | + + + + + + | UNIT # | [id number] | | [facility] | | | | [...] [facility] | [address] | [place] [address] | [phone] | + + + + + POC [...] | | | POC | performed at [facility];[address] | | LABORATORY | | | | [address];[place] | | | | | | [address] | | | | + + + + + + + + | Specimen | + + | | + + + + + + + | Performing | Address | City/State/Zipcode | Phone Number | | Organization | | | | + + + + + | [facility] | [address] | [place] [address] | [phone] | + + + + + Protime [...] | | | | | performed at [facility];[address] | | | | | | [address];[place] | | | | | | [address] | | | | + + + + + + + + | Specimen | + + | Blood | + + + + + + + | Performing | Address | City/State/Zipcode | Phone Number | | Organization | | | | + + + + + | [facility] | [address] | [place] [address] | [phone] | + + + + + CBC [...] | | | | | [place] [address] | | | | + + + + + + + + | Specimen | + + | Blood | + + + + + + + | Performing | Address | City/State/Zipcode | Phone Number | | Organization | | | | + + + + + | [facility] | [address] | [place] [address] | [phone] | + + + + + Magnesium (12/22/2019 5:26 AM PDT) + + + + + + | Component | Value | Ref Range | Performed | Pathologist | | | | | At | Signature | + + + + + + | Magnesium | 2.6 (H)Comment: Testing | 1.7 - 2.4 mg/dL | [facility] | | | | performed at [facility], [address] | | LABORATORY | | | | [address], | | | | | | [place] [address] | | | | + + + + + + + + | Specimen | + + | Blood | + + + + + + + | Performing | Address | City/State/Zipcode | Phone Number | | Organization | | | | + + + + + | [facility] | [address] | [place] [address] | [phone] | + + + + + Basic [...] | | | | | performed at [facility], [address] | | | | | | [address], | | | | | | [place] [address] | | | | + + + + + + + + | Specimen | + + | Blood | + + + + + + + | Performing | Address | City/State/Zipcode | Phone Number | | Organization | | | | + + + + + | [facility] | [address] | [place] [address] | [phone] | + + + + + POC [...] | | | POC | performed at [facility];[address] | | LABORATORY | | | | [address];[place], [place] | | | | | | [address] | | | | + + + + + + + + | Specimen | + + | | + + + + + + + | Performing | Address | City/State/Zipcode | Phone Number | | Organization | | | | + + + + + | [facility] | [address] | [place] [address] | [phone] | + + + + + POC [...] | | | POC | performed at [facility];[address] | | LABORATORY | | | | [address];[place] | | | | | | [address] | | | | + + + + + + + + | Specimen | + + | | + + + + + + + | Performing | Address | City/State/Zipcode | Phone Number | | Organization | | | | + + + + + | [facility] | [address] | [place] [address] | [phone] | + + + + + documented [...] | | | | | | Starting [facility] 12/26/19 at 1637 | | | [...] | | | | | | | 1630-1348 Use NIGHT DOSE for | | | | | | | doses scheduled: HS, | | | | | | | Nighttime 4779-5514 If the BG is | | | [...]
--- OUTSIDE RECORDS SUMMARY | ~2020-03-05 | XMS | Encounter Summary ---
Demographics + + + | Address | [address] | | | [place] [address] | + + + | Home Phone [...] [place] | | | | | [address] | | + + + + + | Deanna Lawson | ECON | Unknown | | + + + + + Care Team Providers + +------+ + | Care Drill Sharpener Name | Role | Phone | + [...] Provider Unknown | | | | | [place], [place] | | | | | | [address] | (Fax) | | | | | [phone] | | | +--------+ + + + [...] | | | | | | [facility], | | | | | | [place] [address] | | | | | | [phone] | | | | | | | | +--------+---------+ + + + | 04/21/ | Office | Nephrology | Isiah Jade MD | | 2019 | Visit | | [address] [facility] | | | | | | [address] | | | | | | [address] | | | | | | | | +--------+---------+ + + + | 05/07/ | Office | Cardiology | Charlee Oswald | | | 2019 | Visit | | [address] | | | | | | [address] | | | | | | [place] [address] | | | | | | [phone] | | | | | | | [...]
--- OUTSIDE RECORDS SUMMARY | ~2020-03-05 | XMS | Encounter Summary ---
Demographics + + + | Address | [address] | | | [place] [address] | + + + | Home Phone [...] [place] | | | | | [address] | | + + + + + | Deanna Lawson | ECON | Unknown | | + + + + + Care Team Providers + +------+ + | Care Journal Entry Audit Clerk Name | Role | Phone | + [...] Provider Unknown | | | | | [place], [place] | | | | | | [address] | (Fax) | | | | | [phone] | | | +--------+ + + + [...] | | | | | | [facility] | | | | | | [place] [address] | | | | | | [phone] | | | | | | | | +--------+---------+ + + + | 04/21/ | Office | Nephrology | Isiah Jade MD | | 2019 | Visit | | [address] [facility] | | | | | | [address] | | | | | | [address] | | | | | | | | +--------+---------+ + + + | 05/07/ | Office | Cardiology | Charlee Oswald | | | 2019 | Visit | | [address] | | | | | | [address] | | | | | | [place] [address] | | | | | | [phone] | | | | | | | [...]
--- OUTSIDE RECORDS SUMMARY | ~2020-03-05 | XMS | Encounter Summary ---
Demographics + + + | Address | [address] | | | [place] [address] | + + + | Home Phone [...] [place] | | | | | [address] | | + + + + + | Deanna Lawson | ECON | Unknown | | + + + + + Care Team Providers + +------+ + | Care Brim Stitcher Name | Role | Phone | + [...] | | | mellitus | [address]VD | [facility], | | | | | with other | [place] | [place] | | | | | diabetic | [address] | [address] | | | | | kidney | Phone: | Phone: | | | | | complication | [phone] | [phone] | | | | | (HCC) | Fax: | Fax: | | | | | Chronic | [phone] | [phone] | | | | | diastolic | [...] + + | 01/20/ | Office | [facility] | Melquiades Baez | Right hip pain | | 2020 | Visit | [facility] | [address] | (Primary Dx); | | | | MEDICINE [address] | [facility], | Orthopedic aftercare | | | | [address] [facility] | [place] [address] | | | | | [place], [place] | [phone] | | | | | [address] | | | | | | [phone] | | | +--------+---------+ + + + [...] Baez DO - 01/21/2020 1:40 PM PDT [facility]edic [facility] Medicine Service: Orthopedic Surgery [...] Baez DO has created this entry using StandDesk Voice Recognition software and [employer] macros. The entry has been reviewed and [...] | | | | | [address] [place], | | | | | | [place] [address] | | | | | | [phone] | | | | | | | | +--------+---------+ + + + | 04/21/ | Office | Nephrology | Isiah Jade MD | | 2019 | Visit | | [address] [facility] | | | | | | [address] | | | | | | [address] | | | | | | | | +--------+---------+ + + + | 05/07/ | Office | Cardiology | Charlee Oswald | | | 2019 | Visit | | [address] | | | | | | [address] | | | | | | [place] [address] | | | | | | [phone] | | | | | | | [...] Baez DO has created this entry using StandDesk Voice | | | Recognition software and [employer]. The entry has been reviewed | | | and there may still exist sound alike word errors. | | | | | |Electronically signed by: Melquiades Baez DO 01/24/2020 1:05 PM | | | | | | | | |Melquiades Baez DO has created this entry using Dang Le | | |Recognition software and [employer] macros. The entry has been reviewed and [...]
--- OUTSIDE RECORDS SUMMARY | ~2020-03-05 | XMS | Encounter Summary ---
Demographics + + + | Address | [address] | | | [place] [address] | + + + | Home Phone [...] [place] | | | | | [address] | | + + + + + | Deanna Lawson | ECON | Unknown | | + + + + + Care Team Providers + +------+ + | Care Pattern Attendant Name | Role | Phone | [...] | | | | with other | [place] | [place] | | | | | diabetic | [address] | [address] | | | | | kidney | Phone: | Phone: | | | | | complication | [phone] | [phone] | | | | | (HCC) | Fax: | Fax: | | | | | Chronic | [phone] | [phone] | | | | | diastolic | [...] + + | 02/17/ | Office | [facility] | Melquiades Baez | Right hip pain | | 2020 | Visit | [facility] | [address] | (Primary Dx); | | | | MEDICINE [place]UARDO | [facility], | Orthopedic | | | | [address] [facility] | [place] [address] | aftercare; Closed | | | | [place], [place] | [phone] | fracture of right | | | | [address] | | hip with routine | | | | [phone] | | healing, subsequent | | | [...] Melquiades Baez, - 02/18/2020 1:10 PM PDT [facility]opa[facility] Sports Medicine Service: Orthopedic Surgery Post Operative Note DOS: 12/22/2019 right hip IM nail History of Present Illness: Andres Guzmná is doing okay at this point. He [...] Baez DO has created this entry using VetCentric Voice Recognition software and Netaplan macros. The entry has been reviewed and [...] | | | | | | [facility]IE [facility], | | | | | | [place] [address] | | | | | | [phone] | | | | | | | | +--------+---------+ + + + | 04/21/ | Office | Nephrology | Isiah Jade MD | | | 2019 | Visit | | [address] | | | | | | [address] | | | | | | [address] | | | | | | | | +--------+---------+ + + + | 05/07/ | Office | Cardiology | Charlee Oswald | | | 2019 | Visit | | [address] | | | | | | [address] | | | | | | [place] [address] | | | | | | [phone] | | | | | | | [...] created this | | | entry using Petflow Recognition software and Netaplan | | | macros. The entry has been reviewed and there may still exist sound | | | alike word errors. | | | | | |Electronically signed by: Melquiades Baez DO 02/18/2020 1:54 PM PDT | | | | | | | | |Melquiades Baez DO has created this entry using Petflow | | |Recognition software and Netaplan macros. The entry has been reviewed and [...]
--- OUTSIDE RECORDS SUMMARY | ~2020-03-05 | XMS | Encounter Summary ---
Demographics + + + | Address | [address] | | | [place] [address] | + + + | Home Phone [...] [place] | | | | | [address] | | + + + + + | Deanna Lawson | ECON | Unknown | | + + + + + Care Team Providers + +------+ + | Care Poultry Hanger Name | Role | Phone | + +------+ + | Barbara Gilman MD | PCP | | + +------+ + Encounter Details +--------+ + + + + | Date | Type | Department | Care Team | Description | +--------+ + + + + | 08/08/ | Orders Only | [facility] | Charlee Oswald | | | 2017 | | CARDIOLOGY ALYX | [address] | | | | | [address] | [address] | | | | | [address] | [place] [address] | | | | | [place] | [phone] | | | | | [address] | | | | | | [phone] | | | +--------+ + + + [...] | | | | | [address] | | | | | | [place] [address] | | | | | | [phone] | | | | | | | | +--------+---------+ + + + | 04/21/ | Office | Nephrology | Isiah Jade MD | | | 2019 | Visit | | [address] [facility] | | | | | | [address] | | | | | | [address] | | | | | | | | +--------+---------+ + + + | 05/07/ | Office | Cardiology | Charlee Oswald | | | 2019 | Visit | | [address] | | | | | | [address] | | | | | | [place] [address] | | | | | | [phone] | | | | | | | [...]
--- OUTSIDE RECORDS SUMMARY | ~2020-03-05 | XMS | Encounter Summary ---
Demographics + + + | Address | [address] | | | [place] [address] | + + + | Home Phone | | + + + | Preferred Language | Unknown | + + + | Marital Status | | + + + | Gnosticist Affiliation | 1001 | + + + | Race | Unknown | + + + | Ethnic Group | Unknown | + + + Author + + + | Author | [facility] | | | and [place] | + + + | Organization | [facility] | | | [...] [place] | | | | | [address] | | + + + + + | Deanna Lawson | ECON | Unknown | | + + + + + Care Team Providers + +------+ + | Care Conservation Scientist Name | Role | Phone | + [...] + + | 12/01/ | Telephone | [facility] | Charlee Oswald | Testing | | 2020 | | CARDIOLOGY ALYX | [address] | | | | | [address] | [address] | | | | | [address] | [place] [address] | | | | | [place] | [phone] | | | | | [address] | | | | | | [phone] | | | +--------+ + + + [...] | | | | | ALLIE [facility], | | | | | | [place] [address] | | | | | | [phone] | | | | | | | | +--------+---------+ + + + | 04/21/ | Office | Nephrology | Isiah Jade MD | | | 2019 | Visit | | [address] | | | | | | [address] | | | | | | [address] | | | | | | | | +--------+---------+ + + + | 05/07/ | Office | Cardiology | Charlee Oswald | | | 2019 | Visit | | [address] | | | | | | [address] | | | | | | [place] [address] | | | | | | [phone] | | | | | | | [...]
--- OUTSIDE RECORDS SUMMARY | ~2020-03-05 | XMS | Encounter Summary ---
Demographics + + + | Address | [address] | | | [place] [address] | + + + | Home Phone | | + + + | Preferred Language | Unknown | + + + | Marital Status | | + + + | Zoroastrianism Affiliation | 1001 | + + + | Race | Unknown | + + + | Ethnic Group | Unknown | + + + Author + + + | Author | [facility] | | | and [place] | + + + | Organization | [facility] | [...] [place] | | | | | [address] | | + + + + + | Deanna Lawson | ECON | Unknown | | + + + + + Care Team Providers + +------+ + | Care Manager Lan Name | Role | Phone | + +------+ + | Barbara Gilman MD | PCP | | + +------+ + Encounter Details +--------+ + + + + | Date | Type | Department | Care Team | Description | +--------+ + + + + | 01/20/ | Hospital | [facility] | Melquiades Baez | Right hip pain | | 2019 | Encounter | [address] | [address] | | | | | [address] | [address] [place], | | | | | [place], [place] | [place] [address] | | | | | [address] | [phone] | | | | | [phone] | | | +--------+ + + + [...] | | | | | [address], | | | | | | [place] [address] | | | | | | [phone] | | | | | | | | +--------+---------+ + + + | 04/21/ | Office | Nephrology | Isiah Jade MD | | | 2019 | Visit | | [address] [facility] | | | | | | [address] | | | | | | [address] | | | | | | | | +--------+---------+ + + + | 05/07/ | Office | Cardiology | Charlee Oswald | | | 2019 | Visit | | [address] | | | | | | [address] | | | | | | [place] [address] | | | | | | [phone] | | | | | | | [...] Baez DO has created this entry using [email or web address] Voice | | | Recognition software and Five Delta macros. The entry has been reviewed | | | and there may still exist sound alike word errors. | | | | | |Electronically signed by: Melquiades Baez DO 01/24/2020 1:05 PM | | | | | | | | |Melquiades Baez DO has created this entry using Fanbase | | |Recognition software and Five Delta macros. The entry has been reviewed and [...]
--- OUTSIDE RECORDS SUMMARY | ~2020-03-05 | XMS | Encounter Summary ---
Demographics + + + | Address | [address] | | | [place] [address] | + + + | Home Phone [...] [place] | | | | | [address] | | + + + + + | Deanna Lawson | ECON | Unknown | | + + + + + Care Team Providers + +------+ + | Care Special Police Name | Role | Phone | + [...] + + | 01/29/ | Documentati | [facility] | Damon, | Results (01/22/20, | | 2020 | on | [facility] | [facility] | 01/27/20) | | | | [address] | Oral Surgeon | | | | | [address] [facility] [place] | | | | | | [address] | | | | | | [phone] | | | +--------+ + + + [...] | | | | | [address] [place], | | | | | | [place] [address] | | | | | | [phone] | | | | | | | | +--------+---------+ + + + | 04/21/ | Office | Nephrology | Isiah Jade MD | | 2019 | Visit | | [address] [facility] | | | | | | [address] | | | | | | [address] | | | | | | | | +--------+---------+ + + + | 05/07/ | Office | Cardiology | Charlee Oswald | | | 2019 | Visit | | [address] | | | | | | [address] | | | | | | [place] [address] | | | | | | [phone] | | | | | | | [...] 1.001 - 1.030 | | | | [place], | | | | | | Urine [...]
--- OUTSIDE RECORDS SUMMARY | ~2020-03-05 | XMS | Encounter Summary ---
Demographics + + + | Address | [address] | | | [place] [address] | + + + | Home Phone [...] [place] | | | | | [address] | | + + + + + | Deanna Lawson | ECON | Unknown | | + + + + + Care Team Providers + +------+ + | Care Powerhouse Mechanic Supervisor Name | Role | Phone | + +------+ + | Barbara Gilman MD | PCP | | + +------+ + Encounter Details +--------+ + + + + | Date | Type | Department | Care Team | Description | +--------+ + + + + | 01/25/ | Orders Only | [facility] | Enoch Thompson, | | | 2019 | | CARDIOLOGY OPHELIA | [address] | | | | | [address] | [facility], | | | | | [place], [place] | [place] [address] | | | | | [address] | [phone] | | | | | [phone] | | | +--------+ + + + [...] | | | | | [address] [place], | | | | | | [place] [address] | | | | | | [phone] | | | | | | | | +--------+---------+ + + + | 04/21/ | Office | Nephrology | Isiah Jade MD | | | 2019 | Visit | | [address] [facility] | | | | | | [address] | | | | | | [address] | | | | | | | | +--------+---------+ + + + | 05/07/ | Office | Cardiology | Charlee Oswald | | | 2019 | Visit | | [address] | | | | | | [address] | | | | | | [place] [address] | | | | | | [phone] | | | | | | | [...]
--- OUTSIDE RECORDS SUMMARY | ~2020-03-05 | XMS | Encounter Summary ---
Demographics + + + | Address | [address] | | | [place] [address] | + + + | Home Phone [...] [place] | | | | | [address] | | + + + + + | Deanna Lawson | ECON | Unknown | | + + + + + Care Team Providers + +------+ + | Care Continuity Tester Name | Role | Phone | + +------+ + PCP | Unavailable | + +------+ + Encounter Details +--------+ + + + + | Date | Type | Department | Care Team | Description | +--------+ + + + + | 08/29/ | Orders Only | [facility] | Conversion | | | 2018 | | CARDIOLOGY OPHELIA | Transaction, | | | | | [address] | Provider Unknown | | | | | [place], [place] | [phone] | | | | | [address] | | | | | | [phone] | | | +--------+ + + + [...] | | | | | [address] [place], | | | | | | [place] [address] | | | | | | [phone] | | | | | | | | +--------+---------+ + + + | 04/21/ | Office | Nephrology | Isiah Jade MD | | | 2019 | Visit | | [address] [facility] | | | | | | [address] | | | | | | [address] | | | | | | | | +--------+---------+ + + + | 05/07/ | Office | Cardiology | Charlee Oswald | | | 2019 | Visit | | [address] | | | | | | [address] | | | | | | [place] [address] | | | | | | [phone] | | | | | | | [...]
--- OUTSIDE RECORDS SUMMARY | ~2020-03-05 | XMS | Encounter Summary ---
Demographics + + + | Address | [address] | | | [place] [address] | + + + | Home Phone [...] [place] | | | | | [address] | | + + + + + | Deanna Lawson | ECON | Unknown | | + + + + + Care Team Providers + +------+ + | Care Welding Equipment Sales Representative Name | Role | Phone | + +------+ + | Barbara Gilman MD | PCP | | + +------+ + Encounter Details +--------+---------+ + + + | Date | Type | Department | Care Team | Description | +--------+---------+ + + + | 01/29/ | Office | [facility] | Isiah Jade MD | ATN (acute tubular | | 2020 | Visit | NEPHROLOGY [place] | [address] [place] | necrosis) (HCC) | | | | [address] [place] | [address] [place], [place] | (Primary Dx); CKD | | | | [address] [place], [place] | [address] | (chronic kidney | | | | [address] | | disease) stage 3, | | | | [phone] | | GFR 30-59 ml/min | | | | | | ([facility]); Hypertension | | | | | | [...] insulin | | | | | | ([facility]); 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 | | | | | | failure, stage 3 | | | | | | (moderate) ([facility]); | | | | | | Secondary | | | | | | hyperparathyroidism | | | | | | ([facility]); Bilateral leg | | | | | [...] [address] | | | | | | [facility], | | | | | | [place] [address] | | | | | | [phone] | | | | | | | | +--------+---------+ + + + | 04/21/ | Office | Nephrology | Isiah Jade MD | | 2019 | Visit | | [address] [facility] | | | | | | [address] [place] | | | | | | [address] | | | | | | | | +--------+---------+ + + + | 05/07/ | Office | Cardiology | Charlee Oswald | | | 2019 | Visit | | [address] | | | | | | [address] [address] | | | | | | [place] [address] | | | | | | [phone] | | | | | | | [...] of chronic kidney failure, stage 3 (moderate) ([facility]) | + + | Secondary hyperparathyroidism (HCC) Secondary hyperparathyroidism (of renal origin) | + + | Bilateral leg edema Edema | + + | Electrolyte imbalance risk Other specified conditions influencing health status | + + documented in this encounter
--- OUTSIDE RECORDS SUMMARY | ~2020-03-05 | XMS | Encounter Summary ---
Demographics + + + | Address | [address] | | | [place] [address] | + + + | Home Phone [...] [place] | | | | | [address] | | + + + + + | Deanna Lawson | ECON | Unknown | | + + + + + Care Team Providers + +------+ + | Care Adult School Counselor Name | Role | Phone | + +------+ + | Barbara Gilman MD | PCP | | + +------+ + Encounter Details +--------+ + + + + | Date | Type | Department | Care Team | Description | +--------+ + + + + | 01/20/ | Hospital | [facility] | Melquiades Baez | Right hip pain | | 2019 | Encounter | [address] X[address] | [address] | | | | | [address] | [address] [place], | | | | | [place], [place] | [place] [address] | | | | | [address] | [phone] | | | | | [phone] | | | +--------+ + + + [...] | | | | | [address] [place], | | | | | | [place] [address] | | | | | | [phone] | | | | | | | | +--------+---------+ + + + | 04/21/ | Office | Nephrology | Isiah Jade MD | | | 2019 | Visit | | [address] [facility] | | | | | | [address] [place] | | | | | | [address] | | | | | | | | +--------+---------+ + + + | 05/07/ | Office | Cardiology | Charlee Oswald | | | 2019 | Visit | | [address] | | | | | | [address] | | | | | | [place] [address] | | | | | | [phone] | | | | | | | [...] Baez DO has created this entry using [employer] | | | Recognition software and Taptica macros. The entry has been reviewed | | | and there may still exist sound alike word errors. | | | | | |Electronically signed by: Melquiades Baez DO 01/24/2020 1:05 PM | | | | | | | | |Melquiades Baez DO has created this entry using [employer] | | |Recognition software and Taptica macros. The entry has been reviewed and [...]
--- OUTSIDE RECORDS SUMMARY | ~2020-03-05 | XMS | Encounter Summary ---
Demographics + + + | Address | [address] | | | [place] [address] | + + + | Home Phone [...] [place] | | | | | [address] | | + + + + + | Deanna Lawson | ECON | Unknown | | + + + + + Care Team Providers + +------+ + | Care Nurse Liaison Name | Role | Phone | + [...] + + | 01/02/ | Telephone | [facility] | Isiah Jade MD | Other (Hospital F/ | | 2019 | | NEPHROLOGY [facility] | [address] [place] | ) | | | | [address] [place] | [address] [facility] [place] | | | | | [address] [place], [place] | [id number] | | | | | [address] | | | | | | [phone] | | | +--------+ + + + [...] - 01/06/2020 3:09 PM PDTCare provider at [place] called to schedule patients F/U for February 04 @ 4:00 informed her th at patient will need labs completed before appointments. She provided me with fax number to send orders [phone].Electronically signed by Kita Miranda at 0 01/06/2020 [...] | | | | | | [place] [address] | | | | | | [phone] | | | | | | | | +--------+---------+ + + + | 04/21/ | Office | Nephrology | Isiah Jade MD | | | 2019 | Visit | | [address] | | | | | | [address] [place] | | | | | | [address] | | | | | | | | +--------+---------+ + + + | 05/07/ | Office | Cardiology | Charlee Oswald | | | 2019 | Visit | | [address] | | | | | | [address] | | | | | | [place] [address] | | | | | | [phone] | | | | | | | | +--------+---------+ + + + documented as of this encounter Visit Diagnoses Not on filedocumented in this encounter"
--- OUTSIDE RECORDS SUMMARY | ~2020-03-05 | XMS | Encounter Summary ---
Demographics + + + | Address | [address] | | | [place] [address] | + + + | Home Phone | | + + + | Preferred Language | Unknown | + + + | Marital Status | | + + + | Evangelical Affiliation | 1001 | + + + | Race | Unknown | + + + | Ethnic Group | Unknown | + + + Author + + + | Author | [facility] | | | and [place] | + + + | Organization | [facility] | | | and [place] | + + + | Address | Unknown | + + + | Phone | Unavailable | + + + Support + + + + + | Name | Relationship | Address | Phone | + + + + + | Marissa uGzmán | ECON | [address] | | | | | [place] | | | | | [address] | | + + + + + | Deanna Lawson | ECON | Unknown | | + + + + + Care Team Providers + +------+ + | Care Washer Machine Name | Role | Phone | + +------+ + | Barbara Gilman MD | PCP | | + +------+ + Encounter Details +--------+ + + + + | Date | Type | Department | Care Team | Description | +--------+ + + + + | 09/02/ | Orders Only | [facility] | Enoch Thompson, | | | 2019 | | CARDIOLOGY [place] | [address] | | | | | [address] | [facility], | | | | | [place], [place] | [place] [address] | | | | | [address] | [phone] | | | | | [phone] | | | +--------+ + + + [...] | | | | | [address] [place], | | | | | | [place] [address] | | | | | | [phone] | | | | | | | | +--------+---------+ + + + | 04/21/ | Office | Nephrology | Isiah Jade MD | | | 2019 | Visit | | [address] [facility] | | | | | | [address] [place] | | | | | | [address] | | | | | | | | +--------+---------+ + + + | 05/07/ | Office | Cardiology | Charlee Oswald | | | 2019 | Visit | | [address] | | | | | | [address] | | | | | | [place] [address] | | | | | | [phone] | | | | | | | [...]
--- OUTSIDE RECORDS SUMMARY | ~2020-03-05 | XMS | Encounter Summary ---
Demographics + + + | Address | [address] | | | [place] [address] | + + + | Home Phone [...] [place] | | | | | [address] | | + + + + + | Deanna Lawson | ECON | Unknown | | + + + + + Care Team Providers + +------+ + | Care Roller Setter Name | Role | Phone | + [...] + + | 12/28/ | Anesthesia | [facility] | Maco Wolf, | | | 2019 | Event | [facility] | [facility] [employer] [address] | | | | | INTRA [address] | [place] [address] | | | | | [address] [place] | [phone] | | | | | [address] | | | | | | [phone] | | | +--------+ + + + [...] | Salma, | | | | | Manager Medical Affairs | | +--------+ + + + | [...] | Leatha Mayer, | | IV | [id number] catheter system; | | RN | | [...] Andres Jones Ramirez 89 y.o. male 1930 [id number] Procedure(s) EGD (N/A Mouth) Cooperates? Yes Mental [...] by Maco Wolf CRNA 12/29/2019 9:48 AM [facility] Maco Wolf CRNA at 0 9:48 AM PDTAnesthesia Preprocedure Evaluation - Maco Wolf CRNA - 12/29/2019 8:59 A M PDT ANESTHESIA PREANESTHESIA EVALUATION Andres Guzmán 89 y.o. male 1930 [id number] Procedure(s): EGD (N/A Mouth) Medical,anesthesia, drug, allergy [...] and agrees to proceed. Discussed plan with [employer]. Electronically Signed by: Maco Wolf CRNA ESig date/time: 12/29/2019 8:59 AM documented in this e ncounter Miscellaneous Notes Anesthesia Post-op Handoff - Maco Wolf CRNA - 12/29/2019 9:46 AM PDTFormatting of th is note might be different from the original. ANESTHESIA HANDOFF NOTE Andres Jones Ramirez 89 y.o. male 1930 [id number] EGD (N/A Mouth) HANDOFF NOTE Handoff Protocol [...] team. Maco Wolf CRNA 12/29/2019 9:46 AM [facility] by Maco Wolf CRNA at [...] | | | | | | [place] [address] | | | | | | [phone] | | | | | | | | +--------+---------+ + + + | 04/21/ | Office | Nephrology | Isiah Jade MD | | | 2019 | Visit | | [address] | | | | | | [address] [place] | | | | | | [address] | | | | | | | | +--------+---------+ + + + | 05/07/ | Office | Cardiology | Charlee Oswald | | | 2019 | Visit | | [address] | | | | | | [address] | | | | | | [place] [address] | | | | | | [phone] | | | | | | | [...]
--- OUTSIDE RECORDS SUMMARY | ~2020-03-05 | XMS | Encounter Summary ---
Demographics + + + | Address | [address] | | | [place] [address] | + + + | Home Phone [...] [place] | | | | | [address] | | + + + + + | Deanna Lawson | ECON | Unknown | | + + + + + Care Team Providers + +------+ + | Care Psychiatric Registered Nurse Name | Role | Phone | + +------+ + PCP | Unavailable | + +------+ + Encounter Details +--------+ + + + + | Date | Type | Department | Care Team | Description | +--------+ + + + + | 08/29/ | Orders Only | [facility] | Conversion | | | 2018 | | CARDIOLOGY [place] | Transaction, | | | | | [address] | Provider Unknown | | | | | [place], [place] | [phone] | | | | | [address] | | | | | | [phone] | | | +--------+ + + + [...] | | | | | [address] [place], | | | | | | [place] [address] | | | | | | [phone] | | | | | | | | +--------+---------+ + + + | 04/21/ | Office | Nephrology | Isiah Jade MD | | | 2019 | Visit | | [address] [facility] | | | | | | [address] [place] | | | | | | [address] | | | | | | | | +--------+---------+ + + + | 05/07/ | Office | Cardiology | Charlee Oswald | | | 2019 | Visit | | [address] | | | | | | [address] | | | | | | [place] [address] | | | | | | [phone] | | | | | | | [...]
--- OUTSIDE RECORDS SUMMARY | ~2020-03-05 | XMS | Encounter Summary ---
Demographics + + + | Address | [address] | | | [place] [address] | + + + | Home Phone [...] [place] | | | | | [address] | | + + + + + | Deanna Lawson | ECON | Unknown | | + + + + + Care Team Providers + +------+ + | Care Beach Patrol Lieutenant Name | Role | Phone | + [...] | | Required | | atrial | ACTIVITIES COUNSELOR [address] | 19 | | | | | fibrillation | GO[place]ALS | [place] | | | | | (HCC) | [address] | [place] [address] | | | | | Moderate to | [place], [place] | [address] | | | | | severe | [address] | [place] | | | | | pulmonary | Phone: | [phone] Phone: | | | | | hypertension | [phone] | [phone] | | | | | (HCC) Risk | Fax: | Fax: | | | | | factors for | [phone] | [phone] | | | | | obstructive | [...] + + | 10/27/ | Office | [facility] | Charlee Oswald | 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 in 2 weeks Your Echo looks [...] have referred you to Dr. Dorsey at [facility] , call [phone] for an appoi ntment next week I will have you establish care with Dr. Sanchez who will be your automotive parts counter person See me back in 4 weeks documented [...] reported by him as being negative His [id number]- VASC score is 6( HTN, age, stroke, [...] recreational or illicit drug use. Exercises with [employer] and yard work, tolerates without chest pain [...] : 02/04/2019: ( Dr. Thompson) : new [employer] Accolade MRI com patible model L310, serial #[id number] pacemaker. The current lead is a [employer] model 4136, serial #[id number].Mode for pacing, VVIR with dual-sensor technology programmed on. T he lower rate will be 60 and upper rate 120beats per minute. The output will be 2 volts at 0.4 milliseconds with sensitivity of 2.5 millivolts. Pacing and sensing will be bipolar Previous Implant Pacemaker/ICD: 07/30/2010, BS Altrua S601, SN: [id number]. [facility]. Addendum: Last [...] function was seen today for th is [employer] single-chamber device. The pacing threshold was [...] 15 mmHg. Normal pulmonic valve with mild HI. Sinus of Valsalva dilated about 4.26 cm, [...] change, except less pulmonar y hypertension Echo:07/26/2017: [facility]: EF >70 percent. LV normal [...] 73. Thyroid: TSH 3.55 Labs: 08/23/2018: ( [facility]): CBC: WBC 6.6, RBC 2.92, hemoglobin [...] stopped, as he has a very high SSU2BQ7- VASC sco re of 6. For his [...] apnea evaluation [facility] due to [...] may contain inadvertent rec ognition errors. Maximilian MCCNONELL [facility] Cardiology 10/28/2019 Adoyvette gregory in this encounter Plan of Treatment +--------+---------+ + + + | Date | Type | Specialty | Care Team | Description | +--------+---------+ + + + | 03/17/ | Office | Orthopedic Surgery | Melquiades Baez | | 2019 | Visit | | [address] | | | | | | [address] [place], | | | | | | [place] [address] | | | | | | [phone] | | | | | | | | +--------+---------+ + + + | 04/21/ | Office | Nephrology | Isiah Jade MD | | 2019 | Visit | | [address] [facility] | | | | | | [address] [place] | | | | | | [address] | | | | | | | | +--------+---------+ + + + | 05/07/ Office | Cardiology | Charlee Oswald | | | 2019 | Visit | | [address] | | | | | | [address] | | | | | | [place] [address] | | | | | | [phone] | | | | | | | [...]
--- OUTSIDE RECORDS SUMMARY | ~2020-03-05 | XMS | Encounter Summary ---
Demographics + + + | Address | [address] | | | [place] [address] | + + + | Home Phone [...] [place] | | | | | [address] | | + + + + + | Deanna Lawson | ECON | Unknown | | + + + + + Care Team Providers + +------+ + | Care Transplant Nurse Name | Role | Phone | [...] + + | 01/07/ | Telephone | [facility] | Melquiades Baez | Other (POST OP APPT | | 2019 | | ORTHO SPORTS | [address] | ) | | | | MEDICINE CELESTE | [facility] | | | | | [address] [facility] | [place] [address] | | | | | [place], [place] | [phone] | | | | | [address] | | | | | | [phone] | | | +--------+ + + + [...] Miscellaneous Notes Telephone Encounter - Gwen Lay, Cradle Placer - 01/08/2020 4:58 PM PDTCalled [place] back and left a voicemail to give me a call back to discuss what Dr. Baez wants to to. Left office number. Electronically signed by Gwen Lay Cradle Placer at 4:58 PM PDTTelephone Encounter - Gwen Lay, Cradle Placer - 01/08/2020 4:39 PM PDTINCOMING CALL from cherelle Friedman at [facility]. She left voicemail in regards [...] with a call back daniel santos at [phone]. [place] ended the call documented in this encounter Plan of Treatment +--------+---------+ + + + | Date | Type | Specialty | Care Team | Description | +--------+---------+ + + + | 03/17/ | Office | Orthopedic Surgery | Melquiades Baez | | | 2019 | Visit | | [address] | | | | | | [address] [place], | | | | | | [place] [address] | | | | | | [phone] | | | | | | | | +--------+---------+ + + + | 04/21/ | Office | Nephrology | Isiah Jade MD | | | 2019 | Visit | | [address] [facility] | | | | | | [address] [place] | | | | | | [address] | | | | | | | | +--------+---------+ + + + | 05/07/ | Office | Cardiology | Charlee Oswald | | | 2019 | Visit | | [address] | | | | | | [address] | | | | | | [place] [address] | | | | | | [phone] | | | | | | | | +--------+---------+ + + + documented as of this encounter Visit Diagnoses Not on filedocumented in this encounter"
--- OUTSIDE RECORDS SUMMARY | ~2020-03-05 | XMS | Encounter Summary ---
Demographics + + + | Address | [address] | | | [place] [address] | + + + | Home Phone | | + + + | Preferred Language | Unknown | + + + | Marital Status | | + + + | Rastafarian Affiliation | 1001 | + + + | Race | Unknown | + + + | Ethnic Group | Unknown | + + + Author + + + | Author | [facility] | | | and [place] | + + + | Organization | [facility] | | | and [...] [place] | | | | | [address] | | + + + + + | Deanna Lawson | ECON | Unknown | | + + + + + Care Team Providers + +------+ + | Care Shoe Repairer Apprentice Name | Role | Phone | + +------+ + PCP | Unavailable | + +------+ + Encounter Details +--------+ + + + + | Date | Type | Department | Care Team | Description | +--------+ + + + + | 01/07/ | Orders Only | [facility] | Conversion | | | 2019 | | NEPRHOLOGY [place] | Transaction, | | | | | [address] | Provider Unknown | | | | | [address] [place], [place] | [phone] | | | | | [address] | | | | | | [phone] | | | +--------+ + + + [...] | | | | | | [place] [address] | | | | | | [phone] | | | | | | | | +--------+---------+ + + + | 04/21/ | Office | Nephrology | Isiah Jade MD | | | 2019 | Visit | | [address] [facility] | | | | | | [address] [place] | | | | | | [address] | | | | | | | | +--------+---------+ + + + | 05/07/ | Office | Cardiology | Charlee Oswald | | | 2019 | Visit | | [address] | | | | | | [address] | | | | | | [place] [address] | | | | | | [phone] | | | | | | | [...] - 1.030 | EXTERNAL | | | Mobile, | | | LAB | | | [...]
--- OUTSIDE RECORDS SUMMARY | ~2020-03-05 | XMS | Encounter Summary ---
Demographics + + + | Address | [address] | | | [place] [address] | + + + | Home Phone [...] [place] | | | | | [address] | | + + + + + | Deanna Lawson | ECON | Unknown | | + + + + + Care Team Providers + +------+ + | Care Daylight Driller Name | Role | Phone | + [...] | | | | | atrial | DRAFTER AUTOMOTIVE DESIGN [address] | [facility] | | | | | fibrillation | [address] | [address] | | | | | (HCC) | [address] | [address] | | | | | Presence of | [place], [place] | [place] | | | | | cardiac | [address] | [address] | | | | | pacemaker | [...] + + | 06/27/ | Office | [facility] | Tatoleena Charlee | 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 Also worked for a [employer] company and then a [employer], but now just enjoys his leisure ti [...] or rhonchi noted, respirations unlab ored HEART: [facility] pacemaker site well Healed, stable [...] : 02/04/2019: ( Dr. Thompson) : new [employer] Accolade MRI com patible model L310, serial #[id number] pacemaker. The current lead is a [employer] model 4136, serial #[id number].Mode for pacing, VVIR with dual-sensor technology programmed on. T he lower rate will be 60 and upper rate 120beats per minute. The output will be 2 volts at 0.4 milliseconds with sensitivity of 2.5 millivolts. Pacing and sensing will be bipolar Previous Implant Pacemaker/ICD: 07/30/2010, BS [employer] S601, SN: [id number]. [facility]. Last pacer interrogation: 05/07/2019: ( Dr. Thompson) : Normal device function was seen today f or this [employer] single-chamber device. The pacing threshold was [...] change, except less pul monary hypertension Echo:07/26/2017: [facility]: EF >70 percent. LV normal in [...] reviewed by me LABS: Labs: 02/08: ( [place]) CBC: WBC 6.6, hemoglobin 12.5, and hematocrit [...] PHS 75,TOTAL BILI 0.6,ALB 3.9 Labs: 02/18/2018: ([facility]). CBC: WBC 6.2, RBC 3.46, [...] TSH 3.55 Labs: 08/23/2018: ( [facility]): CBC: WBC 6.6, RBC [...] He had a recent clinic visit with neon sign installer Dr. Thompson, and pacemaker has stable d [...] [facility] in September, and I will follow-up with [...] contain inadvertent rec ognition errors. Maximilian MCCONNELL [facility] 06/28/2019 Apurva orozco in this encounter [...] | | | | | | [place] [address] | | | | | | [phone] | | | | | | | | +--------+---------+ + + + | 04/21/ | Office | Nephrology | Isiah Jade MD | | | 2019 | Visit | | [address] | | | | | | [address] [place] | | | | | | [address] | | | | | | | | +--------+---------+ + + + | 05/07/ | Office | Cardiology | Charlee Oswald | | | 2020 | Visit | | [address] | | | | | | [address] | | | | | | [place] [address] | | | | | | [phone] | | | | | | | [...]
--- OUTSIDE RECORDS SUMMARY | ~2020-03-05 | XMS | Encounter Summary ---
Demographics + + + | Address | [address] | | | [place] [address] | + + + | Home Phone [...] [place] | | | | | [address] | | + + + + + | Deanna Lawson | ECON | Unknown | | + + + + + Care Team Providers + +------+ + | Care Embedded Systems Software Developer Name | Role | Phone | + +------+ + PCP | Unavailable | + +------+ + Encounter Details +--------+ + + + + | Date | Type | Department | Care Team | Description | +--------+ + + + + | 07/25/ | Hospital | [facility] | Yoli Harding MD | Dyspnea, unspecified | | 2017 - | Encounter | [facility] | [address] | type; Fatigue, | | | | CARE FLOOR [address] | [place] [address] | unspecified type; | | 07/29/ | | [address] | [phone] | Altered mental | | 2016 | | [place], [place] | | status, unspecified | | | | [address] | | altered mental | | | | [phone] | | status type; | | | [...] Date of Service: 07/29/17 1003 Status: Signed Tanner Rotary Drum Continuous Process: Gutierrez Lopez MD (Physician) [facility] Service: Hospitalist Discharge Summary Date [...] with congestive heart failure clinic, arranged by dependency case manager and outpatient sharon metzger. Past [...] Take 500 mg by mouth daily. 07/24/2017@0700 Bwvxxhj-Zxwfidmim-Trllejk D 600-40-500 MG-MG-UNIT TB24 Take 1,200 mg [...] Take 1 tablet by mouth daily. 2016@00 [place] 3 1000 MG CAPS Take 1 capsule [...] As indicated below and as discussed by dependency case manager's at Bedside. Disposition: Home Condition: Stable Code Status: Full Code Discharge Instructions Diet Cardiac Diet Low Sodium Activity as Tolerated Follow up: ENEDINA Dickerson [address] [facility] [id number] Go on 07/31/2017 Hospital Follow Up Guided Patient Services Guided Patient Services GPS Bottle Blower- JIAN [place] [phone] Mon-Fri 7:30 AM 4:00 PM Call for any questions or concerns after your discharge home, or for help making follow up appointments. ENEDINA Sandoval [address] [place] [phone] On 08/08/2017 Post-Hopsital discharge Follow-up. Medication List [...] Refills: 0 Commonly known as: VITAMIN C Grextos-Tsntzvpqz-Booinxw D 600-40-500 MG-MG-UNIT Tb24 Refills: 0 glipiZIDE [...] (none) Author Type: Registered Nurse Filed: 07/29/17 2719 Date of Service: 07/29/171344 Status: Signed Tanner Rotary Drum Continuous Process: Valeria Martinez RN (Registered Nurse) Patient discharged home via private vehicle with family. Heart failure education completed, all discharge instructions discussed. Patient has heart failure education packet and paper prescriptions in possession. All questions answered, all patient belongings with family. Shalini oleary wheeled out with MELTER CLERK, all vital signs stable upon discharge. VALREIA MARTINEZ RN onver jose a Transaction, Provider Unknown - 07/28/2017 3:18 PM PST Progress Notes by Carina Quintero CMA at 07/28/17 1364 Author: Carina Quintero CMA Service: (none) Author Type: Data Migration Lead Filed: 07/28/17 1987 Date of Service: 07/28/171517 Status: Signed Tanner Rotary Drum Continuous Process: Carina Quintero CMA (Data Migration Lead) GPS- Patient enrolled. Scheduled to see Abril on 08/08 and PCP on 07/31 onver jose a Transaction, Provider Unknown - 07/28/2017 2:43 PM PST Case Management by Yousuf Mcfadden RN at 07/28/17 1443 Author: Yousuf Mcfadden RN Service: (none) Author Type: Registered Nurse Filed: 07/28/17 1444 Date of Service: 07/28/17 144 Status: Signed Tanner Rotary Drum Continuous Process: Yousuf Mcfadden RN (Registered Nurse) I met with patient in rounds, he is enrolled in the CHF program through [facility] a nd has follow up schedule with his cardiologists. bleGutierrez lyn MD - 07/28/2017 6:56 AM PST Progress Notes by Gutierrez Lopez MD at 07/28/17 0656 Author: Gutierrez Lopez MD Service: Hospitalist Author Type: Physician Filed: 07/28/17 1342 Date of Service: 07/28/1756 Status: Signed Tanner Rotary Drum Continuous Process: Gutierrez Lopez MD (Physician) [facility] Service: Hospitalist Progress Note Hospital [...] 07/28/17617 Date of Service: 07/28/17612 Status: Signed Tanner Rotary Drum Continuous Process: Stacey Ley RN (Registered Nurse) Patient again [...] Date of Service: 07/27/17 1015 Status: Signed Tanner Rotary Drum Continuous Process: Gutierrez Lopez MD (Physician) [facility] Service: Hospitalist Progress Note Hospital [...] (none) Author Type: Registered Nurse Filed: 07/26/17 4653 Date of Service: 07/26/17 143 Status: Signed Tanner Rotary Drum Continuous Process: Yousuf Mcfadden RN (Registered Nurse) 07/26/17 143 [...] independent an d lives with his in [place]. He [facility] to [facility] for his coumadin checks an d doesn't use any DME. Andres denies having needs for discharge. Patient's PCP is:Janie Beltrán Patient's insurance:Medicare and [employer] Coverage concerns: none Medication coverage/concerns: yes/no Community resources utilized / needed: none Assistance in transportation: family Identification of any specific education / training: none Barriers to Discharge / Alternative housing needed:none Anticipated DCP: Yousuf Gagnon Nathen Pereira i, MD - 07/26/2017 8:09 AM PSTFormatting of this note might be different from the o riginal. Progress Notes by Nathne Coughlin MD at 07/26/17 0809 Author: Nathen Coughlin MD Service: Hospitalist Author Type: Physician Filed: 07/26/17 1341 Date of Service: 07/26/17 0809 Status: Signed Tanner Rotary Drum Continuous Process: Nathen Coughlin MD (Physician) [facility] Service: Hospitalist Progress Note Pt: Andres Mcconnell [...] last discharge his hgb was 8.1 in [place]. He was given iv lasix with improvement [...] and managing patient and counseling/coordination. Dictation software, Bsmark, used which may contain error for similar [...] Author: Demond Sandy Service: (none) Author Type: Automotive Technician Instructor Filed: 07/25/171950 Date of Service: 07/25/171946 Status: Signed Tanner Rotary Drum Continuous Process: Demond Sandy () Visit per pt req. Pt sitting up in bed, pt (Marissa) sitting next to bed. Pt welcomed vi sit. Chp provided caring listening. Pt did some life review - talked proudly about his & wif e's 63 years of marriage & 3 children. Pt also explained he & are [employer], an d quite involved there. Day RN & night RN came in to do hand-off report. Pt & both said how great the care has been & how they've enjoyed their nurses. Positive visit with kindly couple. Automotive Technician Instructortavo Sandy onver jose a Transaction, Provider Unknown - 07/25/2017 2:49 PM PST Pharmacy Note by Renuka Reno RPH at 07/25/171448 Author: Renuka Reno RPH Service: Pharmacy Author Type: Pharmacist Filed: 07/25/171448 Date of Service: 07/25/17 1449 Status: Signed Tanner Rotary Drum Continuous Process: Renuka Reno RPH (Pharmacist) Renal Dosing Monitoring: [...] Date of Service: 07/25/17 1230 Status: Signed Tanner Rotary Drum Continuous Process: Yoli Harding MD (Physician) Related Notes: Original Note by Yoli Harding MD (Physician) filed at 07/25/17 1423 [facility] Service: Hospitalist Admission History & Physical Date [...] GI bleeding when he was seen at [facility] from June 23, 2017, to June 26. [...] [facility]. He drinks about 3 to 4 L of fluids daily but is compliant with his diet restriction and compliant with his medications. His labs on discharge at the [facility] showe d a hemoglobin of [...] kidney injury (HCC) ASSESSMENT & PLAN 1. Giuye-md-yaegrlh diastolic congestive heart failure most likely secondary [...] the primary care physician genia t the [place]. His INR is subtherapeutic at 1.6. We [...] Date of Service: 07/25/17 1042 Status: Signed Tanner Rotary Drum Continuous Process: Mikey Reynaga MD (Physician) Procedure Orders: 1. POCT occult blood stool [[id number]] ordered by Mikey Reynaga MD at 07/25/17 1410 [facility] Department of Emergency Medicine 10:42 AM History [...] since hospital admission. 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 Does not have a PCP. No history of COPD, emphysema, or asthma. Smoker years ago for about 30 years. Taking Lasix. Advertising Internship: Charlee Oswald Past Medical History Diagnosis Date [...] 500 mg by mouth daily. Historical Provider Retvaur-Vnnzlkidv-Hujneyb D 600-40-500 MG-MG-UNIT TB24 Take 1,200 mg [...] (two) times daily. Historical Provider Multiple Vitamins-Minerals ([facility] PO) Take by mouth daily. Historical Provi immanuel [place]-3 Fatty Acids (OMEGA 3 PO) Take by [...] the patient for admission. 1:[address] Hadring is on the floor and examining patient. 2:04 PM Rechecked patient. Discussed lab results and need to perform stool guaiac test. Patient is agreeable. 2:10 PM Performed stool guaiac test. Revealed brown stool and guaiac negative. Pt doing fine in ED. Records Reviewed Old medical records. Nursing notes. Laboratory Evaluation Results Procedure Component Value Ref Range Date/Time Cardiac Panel [[id number]] (Abnormal) Collected: 07/25/17 1051 Order Status: Completed [...] ng/mL CK-MB Index 3.2 Troponin I, Lab [[id number]] Collected: 07/25/17 105 Order Status: Completed Specimen: Blood Updated: 07/25/17 1127 TROPONIN I <0.020 0.00 - 0.10 ng/mL BNP [[id number]] (Abnormal) Collected: 07/25/17 1051 Order Status: Completed [...] negative stool. Performed by ED provider. Hemoccult production quality analyst Passed. Attending Provider Note: IMikey MD personally [...] Date of Service: 07/25/17 1010 Status: Signed Tanner Rotary Drum Continuous Process: Michelle Dawson RN (Registered Nurse) 87 yr old [...] Date of Service: 07/29/17 1300 Status: Signed Tanner Rotary Drum Continuous Process: Valeria Martinez RN (Registered Nurse) Problem: Discharge [...] the original. Plan of Care by Wanda Levine RN at 07/28/172208 Author: Wanda Levine RN Service: (none) Author Type: Registered Nurse Filed: 07/29/17 0552 Date of Service: 07/28/172208 Status: Addendum Tanner Rotary Drum Continuous Process: Wanda Levine RN (Registered Nurse) Related Notes: [...] 07/28/171728 Date of Service: 07/28/171726 Status: Signed Tanner Rotary Drum Continuous Process: Valeria Martinez RN (Registered Nurse) Problem: Fluid [...] 07/28/17511 Date of Service: 07/28/17511 Status: Signed Tanner Rotary Drum Continuous Process: Stacey Ley RN (Registered Nurse) Problem: Fluid [...] 07/27/171529 Date of Service: 07/27/171529 Status: Signed Tanner Rotary Drum Continuous Process: Candice Rodriguez RN (Registered Nurse) Problem: Fluid [...] 07/27/17437 Date of Service: 07/27/17437 Status: Signed Tanner Rotary Drum Continuous Process: Bhumi Chaparro RN (Registered Nurse) Problem: Safety [...] 07/27/17435 Date of Service: 07/27/17435 Status: Signed Tanner Rotary Drum Continuous Process: Bhumi Chaparro RN (Registered Nurse) Problem: Safety [...] 07/26/17603 Date of Service: 07/26/17603 Status: Signed Tanner Rotary Drum Continuous Process: Bhumi Chaparro RN (Registered Nurse) Problem: Safety [...] 07/25/171515 Date of Service: 07/25/171514 Status: Signed Tanner Rotary Drum Continuous Process: Valeria Martinez RN (Registered Nurse) Problem: Fluid [...] 07/25/171437 Date of Service: 07/25/171437 Status: Signed Tanner Rotary Drum Continuous Process: Ramandeep Abbott RPH (Pharmacist) Rx Admission Medication History Note I have reviewed the medication history for appropriate doses obtained by: Pharmacy Medicat ion History Human Resources Hr Generalist. After reviewing the home medication list : I agree with the home medication list. - Removed aspirin as no longer taking - Patient does not follow with the [facility] Coumadin clinic, however, he knew his doses and t akes it every night at 1800. Last does was 07/24/17 Please Review and Order Home Medications as necessary. Thanks Ramandeep Abbott RPH 07/25/2017 2:37 PM >> Donna Hernandez CPhT 07/25/2017 14:29 Rx Medication History Human Resources Hr Generalist Note Patients Preferred Pharmacy has been updated in EPIC: yes -[facility] - [place], [place] - [address] [place] [address] Patients Allergies have been updated and marked [...] | | | | | [place], | | | | | | [place] [address] | | | | | | [phone] | | | | | | | | +--------+---------+ + + + | 04/21/ | Office | Nephrology | Isiah Jade MD | | 2019 | Visit | | [address] [facility] | | | | | | [address] [place] [address] | | | | | | [address] | | | | | | | | +--------+---------+ + + + | 05/07/ | Office | Cardiology | Tatoleena Charlee | | | 2020 | Visit | | [address]SH[address] Chau[address] | | | | | | [address] | | | | | | [place] [address] | | | | | | [phone] | | | | | | | [...] | | | Fingerstick | performed at [facility];[address] | | LAB | | | [address];[place], [place] | | | | | | [address] | | | | + + + [...] | | | Fingerstick | performed at [facility];[address] | | LAB | | | | [address];[place] | | | | | | [address] | | | | + + + [...] | | | Fingerstick | performed at [facility];[address] | | LAB | | | | [address];[place], [place] | | | | | | [address] | | | | + + + [...] | | | | | performed at [facility];[address] | | | | | | [address];[place] | | | | | | [address] | | | | + + + [...] | | | Basophils | performed at [facility], [address] | K/uL | LAB | | | | [address], | | | | | | [place] [address] | | | | + + + [...] EXTERNAL | | | | performed at [facility], [address] | | LAB | | | | [address], | | | | | | [place] [address] | | | | + + + [...] | | | | | | at [facility], [address] | | | | | | [address], | | | | | | [place] [address] | | | | + + + [...] | | | Fingerstick | performed at [facility];[address] | | LAB | | | [address];[place], [place] | | | | | | [address] | | | | + + + [...] | | | Fingerstick | performed at [facility];[address] | | LAB | | | | [address];[place] | | | | | | [address] | | | | + + + [...] | | | Fingerstick | performed at [facility];[address] | | LAB | | | | [address];[place] | | | | | | [address] | | | | + + + [...] RECEIVEDAbnormal | | | Testing performed at [facility];[address] [place] [address];[place] [address] | | + + + + +---------+ [...] | | | Fingerstick | performed at [facility];[address] | | LAB | | | [address];[place], [place] | | | | | | [address] | | | | + + [...] | | | | | performed at [facility];[address] | | | | | | [facility];[place], [place] | | | | | | [address] | | | | + + + [...] | | | Basophils | performed at [facility], [address] | K/uL | LAB | | | | [address], | | | | | | [place] [address] | | | | + + + [...] | | | | | | at [facility], [address] | | | | | | [address], | | | | | | [place] [address] | | | | + + + [...] | | | Fingerstick | performed at [facility];[address] | | LAB | | | [address];[place] | | | | | | [address] | | | | + + + [...] | | | Fingerstick | performed at [facility];[address] | | LAB | | | [address];[place], [place] | | | | | | [address] | | | | + + + [...] | | | Urine | performed at [facility], [address] | | | | | | [address], | | | | | | [place] [address] | | | | + + + [...] LAB | | | | performed at [facility], [address] | | | | | | [address], | | | | | | [place] [address] | | | | + + + [...] | | | Fingerstick | performed at [facility];[address] | | LAB | | | [address];[place], [place] | | | | | | [address] | | | | + + + [...] | | | Fingerstick | performed at [facility];[address] | | LAB | | | [address];[place], [place] | | | | | | [address] | | | | + + + [...] | | | | | | [place] [address] | | | | + + + [...] | | | | | performed at [facility] | | | | | | [address] [facility];[place], [place] | | | | | | [address] | | | | + + + [...] | | | Reticulocyt | performed at [facility], [address] | | LAB | | | [address] Count | [address], | | | | | | [place] [address] | | | | + + + [...] | | | Basophils | performed at [facility], [address] | K/uL | LAB | | | | [address], | | | | | | [place] [address] | | | | + + + [...] | | | External | performed at [facility], [address] | | LAB | | | | [address], | | | | | | [place] [address] | | | | + + + [...] | | | | | | at [facility], [address] | | | | | | [address], | | | | | | [place] [address] | | | | + + + [...] | | | Fingerstick | performed at [facility];[address] | | LAB | | | | [address];[place] | | | | | | [address] | | | | + + + [...] | | | Fingerstick | performed at [facility];[address] | | LAB | | | | [address];[place] | | | | | | [address] | | | | + + + [...] | | | Fingerstick | performed at [facility];[address] | | LAB | | | | [address];[place] | | | | | | [address] | | | | + + + [...] aortic stenosis. | | | Mitral Valve: Kvur-xp-cxtreulj mitral regurgitation is present. | | | [...] 1.88 cm AR Dec | | | [place]: 2.33 m/s2 AR Dec Time: 1398.10 ms [...] TV A Good: 0.32 m/s TV Dec [place]: 2.31 m/s2 | | | TV Dec Time: 215.03 ms TV E Good: 0.49 m/s TV E/A Ratio: | | | 1.53 Human Resources Clerk: DOMITILA Authenticated by: JENNIFER SWAIN MD | | | Report Date/Time: -- 73_[id number]:39:27 | | + + + + + [...] evidence of aortic stenosis.Mitral Valve: | | Gtmn-sx-hdpupqxr mitral regurgitation is present.Mitral Valve: Mild mitral [...] BPMR-R: 973.47 msLAESV(A-L): 99.35 mlLAAs A2C: 27.25 pk7HIJAL A-L A2C: 99.85 | | mlLAESV MOD A2C: 93.96 mlLALs A2C: 6.31 cmLAAs A4C: 26.56 tq0HGOFC A-L A4C: | | 96.85 mlLAESV MOD A4C: 88.08 mlLALs A4C: 6.18 cmTAPSE: 1.88 cmAR Dec [place]: 2.33 | | m/s2AR Dec Time: 1398.10 msAR maxP.73 mmHgAR PHT: 405.45 msAR Vmax: 3.26 | | m/sHR: 64.46 BPMAV maxP.44 mmHgAV meanP.16 mmHgAV Vmax: 1.36 m/Armen | | Vmean: 0.98 m/Armen VTI: 29.20 cmAVA Vmax: 2.97 cm2AVA (VTI): 2.95 uf1XZHL Dopp: | | 5.01 l/minHR: 58.18 BPMLVOT [...] A | | Good: 0.32 m/sTV Dec [place]: 2.31 m/s2TV Dec Time: 215.03 msTV E Good: 0.49 m/sTV | | E/A Ratio: 1.53 Human Resources Clerk: GDAuthenticated by: JENNIFER SWAIN [facility] | | Date/Time: -- [id number]:39:27 IMPRESSION: 1. Left ventricular systolic function is [...] | |TAPSE: 1.88 cm | |AR Dec [place]: 2.33 m/s2 | |AR Dec Time: 1398.10 [...] A Good: 0.32 m/s | |TV Dec [place]: 2.31 m/s2 | |TV Dec Time: 215.03 ms | |TV E Good: 0.49 m/s | |TV E/A Ratio: 1.53 | | | |Human Resources Clerk: GD | |Authenticated by: JENNIFER SWAIN MD | |Report Date/Time: -- [id number]:39:27 | | | |IMPRESSION: | |1. Left [...] | | | Fingerstick | performed at [facility];[address] | | LAB | | | [address];[place], [place] | | | | | | [address] | | | | + + + [...] | | | | | performed at [facility] | | | | | | [facility];[place], [place] | | | | | | [address] | | | | + + + [...] | | | Basophils | performed at [facility], [address] | K/uL | LAB | | | | [address], | | | | | | [place] [address] | | | | + + + [...] EXTERNAL | | | | performed at [facility], [address] | uIU/mL | LAB | | | | [address], | | | | | | [place] [address] | | | | + + + [...] | | | | | [place] [address] | | | | + + + [...] EXTERNAL | | | | performed at [facility];[address] | | LAB | | | | [address];[place], [place] | | | | | | [address] | | | | + + + [...] EXTERNAL | | | | performed at [facility], [address] | | LAB | | | | [address], | | | | | | [place] [address] | | | | + + + [...] + + | Hemoglobin | 5.5Comment: The Bangl[place]hi | 4.0 - 6.0 % | EXTERNAL [...] | | | | | performed at [facility], [address] | | | | | | [facility], | | | | | | [place] [address] | | | | + + + [...] | | | | | | at [facility], [address] | | | | | | [address], | | | | | | [place] [address] | | | | + + + [...] | | | | | | ACUTE ID Testing | | | | | | performed at [facility] | | | | | | [facility];[place], [place] | | | | | | [address] | | | | + + + [...] | | | Fingerstick | performed at [facility];[address] | | LAB | | | | [address];[place] | | | | | | [address] | | | | + + + [...] | | | | | | ACUTE ID Testing | | | | | | performed at [facility];[address] | | | | | | [address];[place], [place] | | | | | | [address] [...] | | | Fingerstick | performed at [facility];[address] | | LAB | | | | [address];[place] | | | | | | [address] | | | | + + + [...] - 04/03/2019 7:51 PM PDT ANDRES Kilpatrick MAEAGNTamia LOWER EXTREMITY | | VENOUS DOPPLER BIL07/25/2017 [...] - 04/03/2019 7:51 PM PDT ANDRES Kilpatrick EICHHOLZ9[birth year]3501 years MaleXR | | CHEST 2 VIEW FRONTAL AND WKXXXCC99/5/2017 11:18 AM INDICATION: Shortness of breath | [...] | | | | | | ACUTE ID Testing | | | | | | performed at [facility];[address] | | | | | | [address];[place], [place] | | | | | | [address] | | | | + + + [...] EXTERNAL | | | | performed at [facility];[address] | | LAB | | | | [address];[place] | | | | | | [address] | | | | + + + [...] | | Performed by ED provider. Hemoccult production quality analyst Passed. | | + + + + [...] (500), | | | | | | research editor ART BROWN (2) | | | | | | on 07/25/2017 5:09:42 PM | | | | | | | | | | + + + + + + + + | Specimen | + + | | + + + + + | Narrative | Performed At | + + + | Historically converted procedure from [facility] Epic environment | EXTERNAL LAB | + [...]
--- OUTSIDE RECORDS SUMMARY | ~2020-03-05 | XMS | Encounter Summary ---
Demographics + + + | Address | [address] | | | [place] [address] | + + + | Home Phone [...] [place] | | | | | [address] | | + + + + + | Deanna Lawson | ECON | Unknown | | + + + + + Care Team Providers + +------+ + | Care Adoption Manager Name | Role | Phone | [...] + + | 01/26/ | Documentati | [facility] | Nelson, | Other (PCP progress | | 2020 | on | NEPHROLOGY JESSI | Kita Sterling | note 01/23/20) | | | | [address] | [place] | | | | | [address] | | | | | | [address] | | | | | | [phone] | | | +--------+ + + + [...] HOSPITAL, | | | | | | [place] [address] | | | | | | [phone] | | | | | | | | +--------+---------+ + + + | 04/21/ | Office | Nephrology | Isiah Jade MD | | | 2019 | Visit | | [address] | | | | | | [address] | | | | | | [address] | | | | | | | | +--------+---------+ + + + | 05/07/ | Office | Cardiology | Charlee Oswald | | | 2019 | Visit | | [address] | | | | | | [address] | | | | | | [place] [address] | | | | | | [phone] | | | | | | | | +--------+---------+ + + + documented as of this encounter Visit Diagnoses Not on filedocumented in this encounter"
--- OUTSIDE RECORDS SUMMARY | ~2020-03-05 | XMS | Encounter Summary ---
Demographics + + + | Address | [address] | | | [place] [address] | + + + | Home Phone | | + + + | Preferred Language | Unknown | + + + | Marital Status | | + + + | Congregation Affiliation | 1001 | + + + | Race | Unknown | + + + | Ethnic Group | Unknown | + + + Author + + + | Author | [facility] | | | and [place] | + + + | Organization | [facility] | | [...] [place] | | | | | [address] | | + + + + + | Deanna Lawson | ECON | Unknown | | + + + + + Care Team Providers + +------+ + | Care Gas Attendant Name | Role | Phone | + +------+ + | Barbara Gilman MD | PCP | | + +------+ + Encounter Details +--------+ + + + + | Date | Type | Department | Care Team | Description | +--------+ + + + + | 02/17/ | Hospital | [facility] | Melquiades Baez | Right hip pain | | 2019 | Encounter | CELESTE XRAY [address] | DO [address] | | | | | [address] | [address] [place], | | | | | [place], [place] | [place] [address] | | | | | [address] | [phone] | | | | | [phone] | | | +--------+ + + + [...] [place] | | | | | | [place] [address] | | | | | | [phone] | | | | | | | | +--------+---------+ + + + | 04/21/ | Office | Nephrology | Isiah Jade MD | | | 2019 | Visit | | [address] [facility] | | | | | | [address] [place] | | | | | | [address] | | | | | | | | +--------+---------+ + + + | 05/07/ | Office | Cardiology | Charlee Oswald | | | 2019 | Visit | | [address] | | | | | | [address] | | | | | | [place] [address] | | | | | | [phone] | | | | | | | [...] created this | | | entry using menuvox Recognition software and [employer] [place] | | | macros. The entry has been reviewed and there may still exist sound | | | alike word errors. | | | | | |Electronically signed by: Melquiades Baez DO 02/18/2020 1:54 PM PDT | | | | | | | | |Melquiades Baez DO has created this entry using menuvox | | |Recognition software and [employer] [place] macros. The entry has been reviewed and | | |there may still exist sound alike word errors. | | | | | + + + + +---------+ + + | Performing | Address | City/State/[facility] | Phone Number | | [...]
--- OUTSIDE RECORDS SUMMARY | ~2020-03-05 | XMS | Encounter Summary ---
Demographics + + + | Address | [address] | | | [place] [address] | + + + | Home Phone | | + + + | Preferred Language | Unknown | + + + | Marital Status | | + + + | Voodoo Affiliation | 1001 | + + + [...] [place] | | | | | [address] | | + + + + + | Deanna Lawson | ECON | Unknown | | + + + + + Care Team Providers + +------+ + | Care Watch Assembly Instructor Name | Role | Phone | [...] + + | 01/05/ | Documentati | [facility] | Nelson, | Other (Dr. Jade | | 2020 | on | NEPHROLOGY JESSI | [facility] | orders) | | | | [address] | Cylindrical Mixer | | | | | [address] [place], [place] | | | | | | [address] | | | | | | [phone] | | | +--------+ + + + [...] | | | | | [address] [place], | | | | | | [place] [address] | | | | | | [phone] | | | | | | | | +--------+---------+ + + + | 04/21/ | Office | Nephrology | Isiah Jade MD | | | 2019 | Visit | | [address] [facility] | | | | | | [address] [place] | | | | | | [address] | | | | | | | | +--------+---------+ + + + | 05/07/ | Office | Cardiology | Charlee Oswald | | | 2020 | Visit | | [address] | | | | | | [address] | | | | | | [place] [address] | | | | | | [phone] | | | | | | | | +--------+---------+ + + + documented as of this encounter Visit Diagnoses Not on filedocumented in this encounter"
--- OUTSIDE RECORDS SUMMARY | ~2020-03-05 | XMS | Encounter Summary ---
Demographics + + + | Address | [address] | | | [place] [address] | + + + | Home Phone | | + + + | Preferred Language | Unknown | + + + | Marital Status | | + + + | Church Affiliation | 1001 | + + + | Race | Unknown | + + + | Ethnic Group | Unknown | + + + Author + + + | Author | [facility] | | | and [place] | + + + | Organization | [facility] | | | [...] [place] | | | | | [address] | | + + + + + | Deanna Lawson | ECON | Unknown | | + + + + + Care Team Providers + +------+ + | Care Spray Machine Tender Name | Role | Phone | + +------+ + | Barbara Gimlan MD | PCP | | + +------+ + Encounter Details +--------+ + + + + | Date | Type | Department | Care Team | Description | +--------+ + + + + | 01/11/ | Orders Only | [facility] | Tristan Rajput, | | | 2018 | | NEPHROLOGY [place] | BUSINESS AREA MANAGER [address] | | | | | [address] [facility] | [place] | | | | | [place] | [place] | | | | | [address] | [id number] | | | | | [phone] | [phone] | | | | | | | [...] | | | | [address] [facility] | | | | | | [place] [address] | | | | | | [phone] | | | | | | | | +--------+---------+ + + + | 04/21/ | Office | Nephrology | Isiah Jade MD | | | 2019 | Visit | | [facility] [address] [facility] [place] | | | | | | [address] [place] [place] | | | | | | [address] | | | | | | | | +--------+---------+ + + + | 05/07/ | Office | Cardiology | Charlee Oswald | | | 2019 | Visit | | [address] | | | | | | [address] | | | | | | [place] [address] | | | | | | [phone] | | | | | | | [...]
--- OUTSIDE RECORDS SUMMARY | ~2020-03-05 | XMS | Encounter Summary ---
Demographics + + + | Address | [address] | | | [place] [address] | + + + | Home Phone | | + + + | Preferred Language | Unknown | + + + | Marital Status | | + + + | Scientologist Affiliation | 1001 | + + + | Race | Unknown | + + + | Ethnic Group | Unknown | + + + Author + + + | Author | [facility] | | | and [place] | + + + | Organization | [facility] | | | [...] [place] | | | | | [address] | | + + + + + | Deanna Lawson | ECON | Unknown | | + + + + + Care Team Providers + +------+ + | Care Plumber Pipe Fitting Name | Role | Phone | + +------+ + | Barbara Gilman MD | PCP | | + +------+ + Encounter Details +--------+ + + + + | Date | Type | Department | Care Team | Description | +--------+ + + + + | 01/02/ | Orders Only | [facility] | Isiah Jade MD | Hypertension goal BP | | 2020 | | NEPHROLOGY [place] | [address] [place] | (blood pressure) < | | | | [address] [place] | [address] [place], [place] | 140/80 (Primary Dx); | | | | [address] [place], [place] | [address] | 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
--- OUTSIDE RECORDS SUMMARY | ~2020-03-05 | XMS | Encounter Summary ---
Demographics + + + | Address | [address] | | | [place] [address] | + + + | Home Phone [...] [place] | | | | | [address] | | + + + + + | Deanna Lawson | ECON | Unknown | | + + + + + Care Team Providers + +------+ + | Care Compressor Station Chief Engineer Name | Role | Phone | + +------+ + | Barbara Gilman MD | PCP | | + +------+ + Encounter Details +--------+ + + + + | Date | Type | Department | Care Team | Description | +--------+ + + + + | 02/17/ | Hospital | [facility] | Melquiades Baez | Right hip pain | | 2019 | Encounter | CELESTE XRAY [address] | DO [address] | | | | | [address] | [address] [place], | | | | | [place], [place] | [place] [address] | | | | | [address] | [phone] | | | | | [phone] | | | +--------+ + + + [...] [place] | | | | | | [place] [address] | | | | | | [phone] | | | | | | | | +--------+---------+ + + + | 04/21/ | Office | Nephrology | Isiah Jade MD | | | 2019 | Visit | | [address] [facility] | | | | | | [address] [place] | | | | | | [address] | | | | | | | | +--------+---------+ + + + | 05/07/ | Office | Cardiology | Charlee Oswald | | | 2019 | Visit | | [address] | | | | | | [address] | | | | | | [place] [address] | | | | | | [phone] | | | | | | | [...] created this | | | entry using Silverado Recognition software and [employer] | | | macros. The entry has been reviewed and there may still exist sound | | | alike word errors. | | | | | |Electronically signed by: Melquiades Baez DO 02/18/2020 1:54 PM PDT | | | | | | | | |Melquiades Baez DO has created this entry using Silverado | | |Recognition software and [employer] macros. The entry has been reviewed and | | |there may still exist sound alike word errors. | | | | | + + + + +---------+ + + | Performing | Address | City/State/[facility] | Phone Number | | Organization | | | | + +---------+ + + | [facility] | | | | + +---------+ + + documented in this encounter Visit Diagnoses + + | Diagnosis | + + | Right hip pain Pain in joint, pelvic region and thigh | + + documented in this encounter"
--- OUTSIDE RECORDS SUMMARY | ~2020-03-05 | XMS | Encounter Summary ---
Demographics + + + | Address | [address] | | | [place] [address] | + + + | Home Phone [...] [place] | | | | | [address] | | + + + + + | Deanna Lawson | ECON | Unknown | | + + + + + Care Team Providers + +------+ + | Care Accounts Receivable Administrator Name | Role | Phone | [...] Provider Unknown | | | | | [place], [place] | | | | | | [address] | (Fax) | | | | | [phone] | | | +--------+ + + + [...] | | | | | | [place] [address] | | | | | | [phone] | | | | | | | | +--------+---------+ + + + | 04/21/ | Office | Nephrology | Isiah Jade MD | | 2019 | Visit | | [address] [facility] | | | | | | [address] [place] [address] | | | | | | [address] | | | | | | | | +--------+---------+ + + + | 05/07/ | Office | Cardiology | Charlee Oswald | | | 2019 | Visit | | [address] | | | | | | [address] | | | | | | [place] [address] | | | | | | [phone] | | | | | | | [...]
--- OUTSIDE RECORDS SUMMARY | ~2020-03-05 | XMS | Encounter Summary ---
Demographics + + + | Address | [address] | | | [place] [address] | + + + | Home Phone [...] [place] | | | | | [address] | | + + + + + | Deanna Lawson | ECON | Unknown | | + + + + + Care Team Providers + +------+ + | Care Desulfurizer Operator Name | Role | Phone | [...] F/ | | 2019 | | NEPHROLOGY [facility] | [address] [place] | ) | | | | [address] [place] | [address] [facility] [place] | | | | | 160 [place], [place] | [id number] | | | | | [address] | | | | | | [phone] | | | +--------+ + + + [...] - 01/06/2020 3:09 PM [facility] [place] [place] [facility] patients F/U for February 04 @ 4:00 informed her th at patient will need labs completed before appointments. She provided me with fax number to send orders [phone].Electronically signed by Kita Miranda at 0 01/06/2020 [...] | | | | | | [place] [id number] | | | | | | [phone] | | | | | | | | +--------+---------+ + + + | 04/21/ | Office | Nephrology | Isiah Jade MD | | | 2019 | Visit | | [address] | | | | | | [address] [place] | | | | | | [address] | | | | | | | | +--------+---------+ + + + | 05/07/ | Office | Cardiology | Charlee Oswald | | | 2019 | Visit | | [address] | | | | | | [address] | | | | | | [place] [address] | | | | | | [phone] | | | | | | | | +--------+---------+ + + + documented as of this encounter Visit Diagnoses Not on filedocumented in this encounter"
--- OUTSIDE RECORDS SUMMARY | ~2020-03-05 | XMS | Encounter Summary ---
Demographics + + + | Address | [address] | | | [place] [address] | + + + | Home Phone [...] [place] | | | | | [address] | | + + + + + | Deanna Lawson | ECON | Unknown | | + + + + + Care Team Providers + +------+ + | Care Creative Perfumer Name | Role | Phone | + [...] [address] | | | | | [place], [place] | [place] [address] | | | | | [address] | [phone] | | | | | [phone] | | | +--------+ + + + [...] | | | | | [address] [place], | | | | | | [place] [address] | | | | | | [phone] | | | | | | | | +--------+---------+ + + + | 04/21/ | Office | Nephrology | Isiah Jade MD | | 2019 | Visit | | [address] [facility] | | | | | | [address] [place] [address] | | | | | | [address] | | | | | | | | +--------+---------+ + + + | 05/07/ | Office | Cardiology | Charlee Oswald | | | 2019 | Visit | | [address] | | | | | | [address] | | | | | | [place] [address] | | | | | | [phone] | | | | | | | [...] TR Vmax: 3.45 m/s | | | Research Aide: DAR Authenticated by: Vikki Godoy Report | | | Date/Time: -- [id number]:23:50 | | + + + + ------+ [...] cmLVPWd: 0.86 cmLVOT Area: | | 3.66 [id number] Diam: 2.15 cm%FS: 30.74 %EF(Teich): 57.74 %ESV(Teich): [...] mlLAESV Index (A-L): 55.88 ml/m2LAAs A2C: 25.46 hy2MPOIG A-L | | A2C: 88.15 mlLALs A2C: 6.24 cmLAAs A4C: 29.53 co1GRYNG A-L A4C: 110.72 mlLALs | | A4C: 6.68 cmRAAs: 31.00 vm7IEWZI A-L: 119.55 mlRAESV MOD: 117.88 mlRALs: 6.82 | | cmTAPSE: 1.87 cmAV maxP.43 mmHgAV meanP.22 mmHgAV Vmax: 1.05 m/Armen | | Vmean: 0.69 m/Armen VTI: 18.19 cmAVA Vmax: 2.31 cm2AVA (VTI): 2.75 zq3RHUC Vmax: | | 0.00 cm2/m2AVAI (VTI): 0.00 cm2/m2LVOT maxP.76 mmHgLVOT meanP.05 mmHgLVSI | | Dopp: 27.38 ml/m2LVSV Dopp: 50.12 mlLVOT Vmax: 0.66 m/sLVOT Vmean: 0.48 m/sLVOT | | VTI: 13.68 cmMV A Good: 0.02 m/sMV DecT: 135.32 msMV E Good: 0.84 m/sMV E/A | | Ratio: 38.78MV PHT: 39.24 msMVA By PHT: 5.60 op6Dnjwes e': 0.03 m/sSeptal E/e': | | 21.63Lateral e': 0.08 m/sLateral E/e': 10.19RAP: 15 mmHgRVSP: 62.86 mmHgTR | | maxP.86 mmHgTR Vmax: 3.45 m/s Research Aide: DHAuthenticated by: Jayne | | [facility] Date/Time: -- 69_[id number]:23:50 IMPRESSION: 1. The left ventricle is | [...] |TR Vmax: 3.45 m/s | | | |Research Aide: | |Authenticated by: Vikki Godoy | |Report Date/Time: -- [id number]:23:50 | | | |IMPRESSION: | |1. The [...]
--- OUTSIDE RECORDS SUMMARY | ~2020-03-05 | XMS | Encounter Summary ---
Demographics + + + | Address | [address] | | | [place] [address] | + + + | Home Phone [...] [place] | | | | | [address] | | + + + + + | Deanna Lawson | ECON | Unknown | | + + + + + Care Team Providers + +------+ + | Care Automobile Engine Assembler Name | Role | Phone | + +------+ + PCP | Unavailable | + +------+ + Encounter Details +--------+ + + + + | Date | Type | Department | Care Team | Description | +--------+ + + + + | 07/28/ | Hospital | [facility] | Robe Prasad | | | 2009 - | Encounter | [facility] | MD Brendan [id number] | | | | | CARE FLOOR [address] | [address] [place] [address] | | | 07/31/ | | [address] | [place] [address] | | | 2009 | | [place], [place] | [phone] | | | | | [address] | | | | | | [phone] | | | +--------+ + + + [...] | | | | | | [facility], | | | | | | [place] [address] | | | | | | [phone] | | | | | | | | +--------+---------+ + + + | 04/21/ | Office | Nephrology | Isiah Jade MD | | | 2019 | Visit | | [address] [facility] | | | | | | [address] [place] [address] | | | | | | [address] | | | | | | | | +--------+---------+ + + + | 05/07/ | Office | Cardiology | Charlee Oswald | | | 2019 | Visit | | [address] | | | | | | [address] | | | | | | [place] [address] | | | | | | [phone] | | | | | | | [...] | | | The pacemaker is a [employer] Altrua 60, model S601. Serial | | | number is [id number]. The electrode is a Guidant Dextrus electrode model | | | number 4136, length 50 cm. Serial number is [id number]. PACING AND | | | SENSING PARAMETERS [...] DT: | | | 08/11/2010 07:18 A NIDA/arline/[id number]/ Read by TODD HARDEN, DO | | [...] therapy. He is admitted to the | [facility]. His beta-gala has been discontinued as [...] DATA | | The pacemaker is a [employer] Altrua 60, model S601. Serial | | number is [id number]. | | The electrode is a Guidant Dextrus electrode model number 4136, length | | 50 cm. Serial number is [id number]. | | | | PACING AND SENSING [...] | P | | A | | TTC/arline/[id number]/ | | | | Read by | | TODD HARDEN DO 08/10/2010 09:46 P | | | | | + + documented in this encounter Visit Diagnoses Not on filedocumented in this encounter"
--- OUTSIDE RECORDS SUMMARY | ~2020-03-05 | XMS | Encounter Summary ---
Demographics + + + | Address | [address] | | | [place] [address] | + + + | Home Phone [...] [place] | | | | | [address] | | + + + + + | Deanna Lawson | ECON | Unknown | | + + + + + Care Team Providers + +------+ + | Care Cold Rolling Supervisor Name | Role | Phone | + +------+ + | Barbara Gilman MD | PCP | | + +------+ + Encounter Details +--------+---------+ + + + | Date | Type | Department | Care Team | Description | +--------+---------+ + + + | 05/07/ | Office | [facility] | Enoch Thompson, | Cardiac pacemaker in | | 2019 | Visit | CARDIOLOGY OP[place]IA | [address] | situ; Permanent | | | | [address] | [place], | atrial fibrillation | | | | [place], [place] | [place] [address] | ([facility]) | | | | [address] | [phone] | | | | | [phone] | | | +--------+---------+ + + + [...] pacemaker in situ Overview He has a [employer] Altrua single-chamber RV pacemaker that was [...] function was seen tofrancesca marcus for this [employer] single-chamber device. The pacing threshold was [...] mild concentric LVH. He has a single-chamber [employer] ventricular pacemaker that is nearing elective [...] mild concentric LVH. He has a single-chamber [employer] ventricular pacemaker that is nearing elective replacement indicator status. He has been pacing the right ventricle 99% o f the time. Anticoagulated with apixaban. He has only been taking 2.5 mg twice per day, because of cierra al dysfunction and age. The chads 2 vascular score is 4. 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 Priority: High Note Last Updated: 05/07/2019 He has a [employer] Altrua single-chamber RV pacemaker that was [...] function was seen tofrancesca marcus for this [employer] single-chamber device. The pacing threshold was 0.6 [...] arora. Type 2 diabetes mellitus without complication ([facility]) 06/04/2015 Reading: Continue current therapy. [...] notes on file Myrtle Esteves Me dical Livestock Trucker - 05/07/2019 11:30 AM Sheela COOPER Note- [...] | | | | | | [place] [address] | | | | | | [phone] | | | | | | | | +--------+---------+ + + + | 04/21/ | Office | Nephrology | Isiah Jade MD | | | 2019 | Visit | | [address] | | | | | | [address] [place] | | | | | | [address] | | | | | | | | +--------+---------+ + + + | 05/07/ | Office | Cardiology | Charlee Oswald | | | 2019 | Visit | | [address] | | | | | | [address] | | | | | | [place] [address] | | | | | | [phone] | | | | | | | | +--------+---------+ + + + documented as of this encounter Visit Diagnoses + + | Diagnosis | + + | Cardiac pacemaker in situ | + + | Permanent atrial fibrillation (HCC) Atrial fibrillation | + + documented in this encounter
--- OUTSIDE RECORDS SUMMARY | ~2020-03-05 | XMS | Encounter Summary ---
Demographics + + + | Address | [address] | | | [place] [address] | + + + | Home Phone [...] [place] | | | | | [address] | | + + + + + | Deanna Lawson | ECON | Unknown | | + + + + + Care Team Providers + +------+ + | Care Vascular Specialists Name | Role | Phone | + [...] + + | 02/12/ | Documentati | [facility] | Silva Paz, | Results | | 2019 | on | NEPRHOLOGY [place] | Marine Steward | (interpath-02/04/2020 | | | | [address] | | ) | | | | [address] [place], [place] | | | | | | [address] | | | | | | [phone] | | | +--------+ + + + [...] | | | | | [address] | | | | | | [place] [address] | | | | | | [phone] | | | | | | | | +--------+---------+ + + + | 04/21/ | Office | Nephrology | Isiah Jade MD | | 2019 | Visit | | [address] | | | | | | [address] [place] | | | | | | [address] | | | | | | | | +--------+---------+ + + + | 05/07/ | Office | Cardiology | Charlee Oswald | | | 2019 | Visit | | [address] | | | | | | [address] | | | | | | [place] [address] | | | | | | [phone] | | | | | | | [...]
--- OUTSIDE RECORDS SUMMARY | ~2020-03-05 | XMS | Encounter Summary ---
Demographics + + + | Address | [address] | | | [place] [address] | + + + | Home Phone [...] [place] | | | | | [address] | | + + + + + | Deanna Lawson | ECON | Unknown | | + + + + + Care Team Providers + +------+ + | Care Animal Nutrition Teacher Name | Role | Phone | + +------+ + PCP | Unavailable | + +------+ + Encounter Details +--------+ + + + + | Date | Type | Department | Care Team | Description | +--------+ + + + + | 07/28/ | Hospital | [facility] | Robe Prasad | | | 2009 - | Encounter | [facility] | MD Brendan [address] | | | | | CARE FLO[address] | [address] [place] [address] | | | 07/31/ | [address] | [place] [address] | | | 2009 | | [place], [place] | [phone] | | | | | [address] | | | | | | [phone] | | | +--------+ + + + [...] 03/17/ | Office | Orthopedic Surgery | Meqluiades Baez | | | 2019 | Visit | | [address] | | | | | | [facility], | | | | | | [place] [address] | | | | | | [phone] | | | | | | | | +--------+---------+ + + + | 04/21/ | Office | Nephrology | Isiah Jade MD | | | 2019 | Visit | | [address] [facility] | | | | | | [address] [place] | | | | | | [address] | | | | | | | | +--------+---------+ + + + | 05/07/ | Office | Cardiology | Charlee Oswald | | | 2019 | Visit | | [address] | | | | | | [address] | | | | | | [place] [address] | | | | | | [phone] | | | | | | | [...] | | | The pacemaker is a [employer] Altrua 60, model S601. Serial | | | number is [id number]. The electrode is a Guidant Dextrus electrode model | | | number 4136, length 50 cm. Serial number is [id number]. PACING AND | | | SENSING PARAMETERS [...] DT: | | | 08/11/2010 07:18 A NIDA/arline/[id number]/ Read by TODD HARDEN, DO | | [...] therapy. He is admitted to the | [facility]. His beta-gala has been discontinued [...] DATA | | The pacemaker is a [employer] Altrua 60, model S601. Serial | | number is [id number]. | | The electrode is a Guidant Dextrus electrode model number 4136, length | | 50 cm. Serial number is [id number]. | | | | PACING AND SENSING [...] | P | | A | | TTC/arline/[id number]/ | | | | Read by | | TODD HARDEN DO 08/10/2010 09:46 P | | | | | + + documented in this encounter Visit Diagnoses Not on filedocumented in this encounter"
--- OUTSIDE RECORDS SUMMARY | ~2020-03-05 | XMS | Encounter Summary ---
Demographics + + + | Address | [address] | | | [place] [address] | + + + | Home Phone [...] [place] | | | | | [address] | | + + + + + | Deanna Lawson | ECON | Unknown | | + + + + + Care Team Providers + +------+ + | Care Box Blank Machine Feeder Name | Role | Phone | + [...] [address] | | | | | [place], [place] | [place] [address] | | | | | [address] | [phone] | | | | | [phone] | | | +--------+ + + + [...] | | | | | [place], | | | | | | [place] [address] | | | | | | [phone] | | | | | | | | +--------+---------+ + + + | 04/21/ | Office | Nephrology | Isiah Jade MD | | 2019 | Visit | | [address] [facility] | | | | | | [address] [place] | | | | | | [address] | | | | | | | | +--------+---------+ + + + | 05/07/ | Office | Cardiology | Charlee Oswald | | | 2019 | Visit | | [address] | | | | | | [address] | | | | | | [place] [address] | | | | | | [phone] | | | | | | | [...] 1.67 cm | | | AR Dec [place]: 1.62 m/s2 AR Dec Time: 2122.29 ms [...] RV s': | | | 0.10 m/s Support Team Member: PARTHA Authenticated by: Vikki Godoy | | | Report Date/Time: 09-27-2018 20:0:35 | | + + + + + | Procedure Note | + + | Leonides Bullock Conversion - 04/11/2019 12:50 PM PDT Patient Name: Francisco Guzmán of | | : 1930 Performing Physician: Vikki | | [facility] INDICATIONS------ | | -----afib, pacemaker, dilated [...] | | cmLVPWd: 0.92 cmLVOT Area: 4.11 [id number] Diam: 2.29 cm%FS: 21.62 %EF(Teich): | | [...] mlLAESV Index (A-L): 58.76 ml/m2LAAs A2C: 25.86 [id number] A-L A2C: 90.57 | | mlLALs A2C: 6.26 cmLAAs A4C: 29.36 [id number] A-L A4C: 115.78 mlLALs A4C: 6.32 | | cmRAAs: 26.92 [id number] A-L: 103.75 mlRAESV MOD: 96.91 mlRALs: 5.92 cmTAPSE: | | 1.67 cmAR Dec [place]: 1.62 m/s2AR Dec Time: 2121.29 msAR maxP.71 mmHgAR PHT: | | 615.46 msAR Vmax: 3.45 m/Armen maxP.22 mmHgAV meanP.30 mmHgAV Vmax: 1.24 | | m/Armen Vmean: 0.84 m/Armen VTI: 25.35 cmAVA Vmax: 2.51 cm2AVA (VTI): 2.84 [id number] | | (Vmax): 0.00 cm2/m2AVAI (VTI): 0.00 [...] mmHgTR Vmax: 3.74 m/sRV s': 0.10 m/s Support Team Member: | | DBSAuthenticated by: [facility] Date/Time: 09-27-2018 20:0:35 IMPRESSION: 1. | [...] | |TAPSE: 1.67 cm | |[place] Dec [place]: 1.62 m/s2 | |AR Dec Time: 2122.29 [...] |RV s': 0.10 m/s | | | |Support Team Member: DBS | |Authenticated by: Vikki Godoy | [...]
--- OUTSIDE RECORDS SUMMARY | ~2020-03-05 | XMS | Encounter Summary ---
Demographics + + + | Address | [address] | | | [place] [address] | + + + | Home Phone [...] [place] | | | | | [address] | | + + + + + | Deanna Lawson | ECON | Unknown | | + + + + + Care Team Providers + +------+ + | Care Electronics Teacher Name | Role | Phone | [...] + + | 02/19/ | Telephone | [facility] | Isiah Jade MD | Other (Lab Results ) | | 2019 | | NEPRHOLOGY [place] | [address] | | | | | [address] | [address] [place], [place] | | | | | [address] [place], [place] | [address] | | | | | [address] | | | | | | [phone] | | | +--------+ + + + [...] | | | | | | [place] [address] | | | | | | [phone] | | | | | | | | +--------+---------+ + + + | 04/21/ | Office | Nephrology | Isiah Jade MD | | | 2019 | Visit | | [address] | | | | | | [facility] | | | | | | [address] | | | | | | | | +--------+---------+ + + + | 05/07/ | Office | Cardiology | Charlee Oswald | | | 2019 | Visit | | [address] | | | | | | [address] | | | | | | [facility] [place] [place] [address] | | | | | | [phone] | | | | | | | [...]
--- OUTSIDE RECORDS SUMMARY | ~2020-03-05 | XMS | Encounter Summary ---
Demographics + + + | Address | [address] | | | [place] [address] | + + + | Home Phone [...] [place] | | | | | [address] | | + + + + + | Deanna Lawson | ECON | Unknown | | + + + + + Care Team Providers + +------+ + | Care Obstetrics/Gynecology Nurse Name | Role | Phone | [...] + + | 08/12/ | Procedure | [facility] | | Cardiac pacemaker in | | 2019 | visit | CARDIOLOGY [place] | | situ (Primary Dx) | | | | [address] | | | | | | [place] | | | | | | [address] | | | | | | [phone] | | | +--------+ + + + [...] of this encounter Procedure Notes Mercedez Bains, Medical Service Technician - 08/12/2019 8:00 AM PSTAssociated Order(s): DEVICE INT ERROGATION- REMOTEProcedure(s): DEVICE INTERROGATION- REMOTEPre-Procedure Diagnose(s): Prese nce of cardiac pacemaker PACEMAKER REMOTE INTERROGATION REPORT Name: Andres Guzmán PCP: Barbara Gilman MD : 1930 Primary cardiology provider: Charlee Oswald Primary electrophysiology provider: Enoch Thompson Device bulk pigment reducer: RocketOz Device type: Single chamber (Ventricular) Battery Longevity: [...] | | [facility], | | | | | | [place] [address] | | | | | | [phone] | | | | | | | | +--------+---------+ + + + | 04/21/ | Office | Nephrology | Isiah Jade MD | | | 2019 | Visit | | [address] | | | | | | [address] [place] | | | | | | [address] | | | | | | | | +--------+---------+ + + + | 05/07/ | Office | Cardiology | DarekCharlee | | | 2019 | Visit | | [address] | | | | | | [address] | | | | | | [place] [address] | | | | | | [phone] | | | | | | | [...] Mercedez Jensen | LUCA | | Herson Medical Service Technician 08/12/2019 4:09 EDER REMOTE | | | INTERROGATION REPORT Name: Andres Guzmán PCP: Barbara Elkins | | | MD Mukul : 1930MRN: [id number] Primary cardiology | | | provider: Charlee Oswald Primary electrophysiology provider: Enoch | | | Jay Device bulk pigment reducer: RocketOz Device type: Single | | | chamber [...]
--- OUTSIDE RECORDS SUMMARY | ~2020-03-05 | XMS | Encounter Summary ---
Demographics + + + | Address | [address] | | | [place] [address] | + + + | Home Phone [...] [place] | | | | | [address] | | + + + + + | Deanna Lawson | ECON | Unknown | | + + + + + Care Team Providers + +------+ + | Care Tail Worker Name | Role | Phone | + +------+ + | Barbara Gilman MD | PCP | | + +------+ + Reason for Visit + + + | Reason | Comments | + + + | Device Check | [place] pacemaker in office device check w/Jay | | (In-office) | | + + + Encounter Details +--------+ + + + + | Date | Type | Department | Care Team | Description | +--------+ + + + + | 05/07/ | Procedure | [facility] | Enoch Thompson, | Cardiac pacemaker in | | 2019 | visit | CARDIOLOGY [place] | MD [address] | situ (Primary Dx); | | | | [address] | [place], | 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 director mobile media solutions: Thi Burch RN Associated attestation - Enoch Thompson MD - 06/01/2019 1:40 PM PDTA generator change o ut was performed on February 04, 2019. Normal device function was seen today for this [place] Sc ientific single-chamber device. The pacing threshold [...] | | | | | [place] | | | | | | [place] [address] | | | | | | [phone] | | | | | | | | +--------+---------+ + + + | 04/21/ | Office | Nephrology | Isiah Jade MD | | | 2019 | Visit | | [address] | | | | | | [address] [place] | | | | | | [address] | | | | | | | | +--------+---------+ + + + | 05/07/ | Office | Cardiology | Charlee Oswald | | | 2019 | Visit | | [address] | | | | | | [address] | | | | | | [place] [address] | | | | | | [phone] | | | | | | | [...] | | scheduled encounter for additional details. director mobile media solutions: Thi Burch RN | | | | | |See device data attached to scheduled encounter for additional | | |details. | | | | | |director mobile media solutions: Thi Burch RN | | | | [...]
--- OUTSIDE RECORDS SUMMARY | ~2020-03-05 | XMS | Encounter Summary ---
Demographics + + + | Address | [address] | | | [place] [address] | + + + | Home Phone [...] [address] | | | | | [place] | | | | | [address] | | + + + + + | Deanna Lawson | ECON | Unknown | | + + + + + Care Team Providers + +------+ + | Care Room Service Clerk Name | Role | Phone | [...] Provider Unknown | | | | | [place], [place] | [phone] | | | | | [address] | | | | | | [phone] | | | +--------+ + + + [...] | | | | | | [facility], | | | | | | [place] [address] | | | | | | [phone] | | | | | | | | +--------+---------+ + + + | 04/21/ | Office | Nephrology | Isiah Jade MD | | 2019 | Visit | | [address] [facility] | | | | | | [address] | | | | | | [address] | | | | | | | | +--------+---------+ + + + | 05/07/ | Office | Cardiology | Charlee Oswald | | | 2019 | Visit | | [address] | | | | | | [address] | | | | | | [place] [address] | | | | | | [phone] | | | | | | | [...]
--- OUTSIDE RECORDS SUMMARY | ~2020-03-05 | XMS | Encounter Summary ---
Demographics + + + | Address | [address] | | | [place] [address] | + + + | Home Phone [...] + + | Organization | [facility] | | | and [...] [place] | | | | | [address] | | + + + + + | Deanna Lawson | ECON | Unknown | | + + + + + Care Team Providers + +------+ + | Care Event Specialist Name | Role | Phone | + +------+ + | Barbara Gilman MD | PCP | | + +------+ + Encounter Details +--------+ + + + + | Date | Type | Department | Care Team | Description | +--------+ + + + + | 01/30/ | Orders Only | [facility] | Isiah Jade MD | Hypertension goal BP | | 2020 | | NEPHROLOGY [place] | [address] [place] | (blood pressure) < | | | | [address] [place] | [address] [place], [place] | 140/80 (Primary Dx); | | | | [address] [place], [place] | [address] | 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, | | | | | | [place] [address] | | | | | | [phone] | | | | | | | | +--------+---------+ + + + | 04/21/ | Office | Nephrology | Isiah Jade MD | | | 2019 | Visit | | [address] | | | | | | [facility] | | | | | | [address] | | | | | | | | +--------+---------+ + + + | 05/07/ | Office | Cardiology | DarekCharlee | | | 2019 | Visit | | [address] | | | | | | [address] | | | | | | [place] [address] | | | | | | [phone] | | | | | | | [...] | | | | | | ml/min ([facility]) ATN | | | | | | (acute tubular | | | | | | necrosis) ([facility]) | | + +------+--------+ [...] | | | | | | ml/min ([facility]) ATN | | | | | | (acute tubular | | | | | | necrosis) ([facility]) | | + +------+--------+ + + documented [...]
--- OUTSIDE RECORDS SUMMARY | ~2020-03-05 | XMS | Encounter Summary ---
Demographics + + + | Address | [address] | | | [place] [address] | + + + | Home Phone [...] [place] | | | | | [address] | | + + + + + | Deanna Lawson | ECON | Unknown | | + + + + + Care Team Providers + +------+ + | Care Crane Engineer Name | Role | Phone | [...] + + | 02/05/ | Office | [facility] | Dina Sanchez DO | Permanent atrial | | 2020 | Visit | CARDIOLOGY [place] | [address] | fibrillation (HCC) | | | | [address] | [place] | (Primary Dx); | | | | [address] | [address] | Hypertension goal BP | | | | [place] | | (blood pressure) < | | | | [address] | | 140/80; Chronic | | | | [phone]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 | | | [...] Sanchez DO - 02/06/2020 1:00 PM PDT [facility] Cardiology Cardiology Consult Note Reason [...] who presents to the Cardiology office to [facility] for the above past medical histories. [...] was discharged, he had another hospitalization at [facility] for deconditioning and difficulty with ambulation. After [...] Symbicort, but never received these medications from [facility] after he was discharged. He reports that [...] Procedure: EGD; Surgeon: Lamont Acuña MD; Location: [facility] Home Medications Outpatient [...] file Gets together: Not on file Attends confucianism service: Not on file Active member of [...] | | | | | | [place] [address] | | | | | | [phone] | | | | | | | | +--------+---------+ + + + | 04/21/ | Office | Nephrology | Isiah Jaed MD | | | 2019 | Visit | | [address] | | | | | | [address] [place] [address] | | | | | | [address] | | | | | | | | +--------+---------+ + + + | 05/07/ | Office | Cardiology | Charlee Oswald | | | 2019 | Visit | | [address] | | | | | | [address] | | | | | | [place] [address] | | | | | | [phone] | | | | | | | [...]
--- OUTSIDE RECORDS SUMMARY | ~2020-03-05 | XMS | Encounter Summary ---
Demographics + + + | Address | [address] | | | [place] [address] | + + + | Home Phone | | + + + | Preferred Language | Unknown | + + + | Marital Status | | + + + | Temple Affiliation | 1001 | + + + | Race | Unknown | + + + | Ethnic Group | Unknown | + + + Author + + + | Author | [facility] | | | and [place] | + + + | Organization | [facility] | | [...] [place] | | | | | [address] | | + + + + + | Deanna Lawson | ECON | Unknown | | + + + + + Care Team Providers + +------+ + | Care Cnc Lathe Machine Operator Name | Role | Phone [...] Provider Unknown | | | | | [place], [place] | | | | | | [address] | (Fax) | | | | | [phone] | | | +--------+ + + + [...] | | | | | | [facility], | | | | | | [place] [address] | | | | | | [phone] | | | | | | | | +--------+---------+ + + + | 04/21/ | Office | Nephrology | Isiah Jade MD | | 2019 | Visit | | [address] [facility] | | | | | | [address] [place] | | | | | | [address] | | | | | | | | +--------+---------+ + + + | 05/07/ | Office | Cardiology | Charlee Oswald | | | 2019 | Visit | | [address] | | | | | | [address] | | | | | | [place] [address] | | | | | | [phone] | | | | | | | [...]
--- OUTSIDE RECORDS SUMMARY | ~2020-03-05 | XMS | Encounter Summary ---
Demographics + + + | Address | [address] | | | [place] [address] | + + + | Home Phone [...] [place] | | | | | [address] | | + + + + + | Deanna Lawson | ECON | Unknown | | + + + + + Care Team Providers + +------+ + | Care Body Service Team Member Name | Role | Phone | + [...] + + | 08/12/ | Procedure | [facility] | | Cardiac pacemaker in | | 2019 | visit | CARDIOLOGY [place] | | situ (Primary Dx) | | | | [address] | | | | | | [place] | | | | | | [address] | | | | | | [phone] | | | +--------+ + + + [...] of this encounter Procedure Notes Mercedez Bains, Product Marketing Intern - 08/12/2019 8:00 AM PSTAssociated Order(s): DEVICE INT ERROGATION- REMOTEProcedure(s): DEVICE INTERROGATION- REMOTEPre-Procedure Diagnose(s): Prese nce of cardiac pacemaker PACEMAKER REMOTE INTERROGATION REPORT Name: Andres Guzmán PCP: Barbara Gilman MD : 1930 Primary cardiology provider: Charlee Oswald Primary electrophysiology provider: Enoch Thompson Device volunteer recruiter: [id number] Device type: Single chamber (Ventricular) Battery Longevity: [...] | | | | | | ALLIE [facility], | | | | | | [place] [address] | | | | | | [phone] | | | | | | | | +--------+---------+ + + + | 04/21/ | Office | Nephrology | Isiah Jade MD | | | 2019 | Visit | | [address] | | | | | | [address] [place] | | | | | | [address] | | | | | | | | +--------+---------+ + + + | 05/07/ | Office | Cardiology | DarekCharlee | | | 2019 | Visit | | [address] | | | | | | [address] | | | | | | [place] [address] | | | | | | [phone] | | | | | | | [...] Mercedez Jensen | LUCA | | Herson Product Marketing Intern 08/12/2019 4:09 EDER REMOTE | | | INTERROGATION REPORT Name: Andres Guzmán PCP: Barbara Elkins | | | MD Mukul : 1930MRN: [id number] Primary cardiology | | | provider: Charlee Oswald Primary electrophysiology provider: Enoch | | | Jay Device volunteer recruiter: [id number] Device type: Single | | | chamber [...]
--- OUTSIDE RECORDS SUMMARY | ~2020-03-05 | XMS | Encounter Summary ---
Demographics + + + | Address | [address] | | | [place] [address] | + + + | Home Phone [...] [place] | | | | | [address] | | + + + + + | Deanna Lawson | ECON | Unknown | | + + + + + Care Team Providers + +------+ + | Care Manager Operations And Procurement Name | Role | Phone | + +------+ + | Barbara Gilman MD | PCP | | + +------+ + Encounter Details +--------+ + + + + | Date | Type | Department | Care Team | Description | +--------+ + + + + | 01/02/ | Orders Only | [facility] | Isiah Jade MD | Hypertension goal BP | | 2020 | | NEPHROLOGY [place] | [address] [place] | (blood pressure) < | | | | [address] [place] | [address] [place], [place] | 140/80 (Primary Dx); | | | | [address] [place], [place] | [address] | 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
--- OUTSIDE RECORDS SUMMARY | ~2020-03-05 | XMS | Encounter Summary ---
Demographics + + + | Address | [address] | | | [place] [address] | + + + | Home Phone [...] [place] | | | | | [address] | | + + + + + | Deanna Lawson | ECON | Unknown | | + + + + + Care Team Providers + +------+ + | Care Wood Mechanist Name | Role | Phone | + [...] | Chronic kidney | | | | [place], [place] | [phone] | disease, stage III | | | | [address] | | (moderate) ([facility]); | | | | [phone] | | Chronic diastolic | | | | | | heart failure ([facility]) | +--------+ + + + + [...] | | | | | [place] | | | | | | [place] [address] | | | | | | [phone] | | | | | | | | +--------+---------+ + + + | 04/21/ | Office | Nephrology | Isiah Jade MD | | | 2019 | Visit | | [address] | | | | | | [address] [place] | | | | | | [address] | | | | | | | | +--------+---------+ + + + | 05/07/ | Office | Cardiology | Charlee Oswald | | | 2019 | Visit | | [address] | | | | | | [address] | | | | | | [place] [address] | | | | | | [phone] | | | | | | | [...] | | | | | | (moderate) ([facility]) | | + +------+--------+ + + | CBC with | Lab | Routin | Chronic diastolic | Expected: | | Differential | | e | heart failure ([facility]) | 12/27/2018, Expires: | | | | | Essential (primary) | 12/27/2019 | | | | | hypertension | | | | | | Chronic kidney | | | | | | disease, stage III | | | | | | (moderate) ([facility]) | | + +------+--------+ + + | Protein/Creatinine | Lab | Routin | Chronic diastolic | Expected: | | Ratio, Urine | | e | heart failure ([facility]) | 12/27/2018, Expires: | | | | | Essential (primary) | 12/27/2019 | | | | | hypertension | | | | | | Chronic kidney | | | | | | disease, stage III | | | | | | (moderate) ([facility]) | | + +------+--------+ + + [...] | | | | | | (moderate) ([facility]) | | + +------+--------+ + + | Uric Acid | Lab | Routin | Chronic diastolic | Expected: | | | | e | heart failure ([facility]) | 12/27/2018, Expires: | | | | | Essential (primary) | 12/27/2019 | | | | | hypertension | | | | | | Chronic kidney | | | | | | disease, stage III | | | | | | (moderate) ([facility]) | | + +------+--------+ + + | Renal Function Panel | Lab | Routin | Chronic kidney | Expected: | | | | e | disease, stage III | 03/21/2019, Expires: | | | | | (moderate) ([facility]) | 08/19/2020 | + +------+--------+ + + | CBC with | Lab | Routin | Chronic kidney | Expected: | | Differential | | e | disease, stage III | 03/21/2019, Expires: | | | | | (moderate) ([facility]) | 08/19/2020 | + +------+--------+ + + | Magnesium | Lab | Routin | Chronic kidney | Expected: | | | | e | disease, stage III | 03/21/2019, Expires: | | | | | (moderate) ([facility]) | 08/19/2020 | + +------+--------+ + + | Uric Acid | Lab | Routin | Chronic kidney | Expected: | | | | e | disease, stage III | 03/21/2019, Expires: | | | | | (moderate) ([facility]) | 08/19/2020 | + +------+--------+ + + | Parathyroid Hormone, | Lab | Routin | Chronic kidney | Expected: | | Intact | | e | disease, stage III | 03/21/2019, Expires: | | | | | (moderate) ([facility]) | 08/19/2020 | + +------+--------+ + [...]
--- OUTSIDE RECORDS SUMMARY | ~2020-03-05 | XMS | Encounter Summary ---
Demographics + + + | Address | [address] | | | [place] [address] | + + + | Home Phone | | + + + | Preferred Language | Unknown | + + + | Marital Status | | + + + | Church Affiliation | 1001 | + + + | Race | Unknown | + + + | Ethnic Group | Unknown | + + + Author + + + | Author | [facility] | | | and [place] | + + + | Organization | [facility] | | | [...] [place] | | | | | [address] | | + + + + + | Deanna Lawson | ECON | Unknown | | + + + + + Care Team Providers + +------+ + | Care Solar Electric Practitioner Name | Role | Phone | + +------+ + | Barbara Gilman MD | PCP | | + +------+ + Encounter Details +--------+ + + + + | Date | Type | Department | Care Team | Description | +--------+ + + + + | 09/08/ | Orders Only | [facility] | Todd Iqbal Ajith | | | 2016 | | CARDIOLOGY [place] | MD [address] | | | | | [address] | [address] | | | | | [address] | [place] [address] | | | | | [place], [place] | [phone] | | | | | [address] | | | | | | [phone] | | | +--------+ + + + [...] | | | | | [place] [address] [address] [place], | | | | | | [place] [address] | | | | | | [phone] | | | | | | | | +--------+---------+ + + + | 04/21/ | Office | Nephrology | Isiah Jade MD | | | 2019 | Visit | | [address] | | | | | | [address] [place] | | | | | | [address] | | | | | | | | +--------+---------+ + + + | 05/07/ | Office | Cardiology | Charlee Oswald | | | 2019 | Visit | | [address] | | | | | | [address] | | | | | | [place] [address] | | | | | | [phone] | | | | | | | [...] Kobe, Rad Conversion - 04/11/2019 9:03 PM [facility] CARDIOLOGY | | Nuclear Lexiscan Stress Test [...]
--- OUTSIDE RECORDS SUMMARY | ~2020-03-05 | XMS | Encounter Summary ---
Demographics + + + | Address | [address] | | | [place] [address] | + + + | Home Phone [...] Author | [facility] | | | [...] [place] | | | | | [address] | | + + + + + | Deanna Lawson | ECON | Unknown | | + + + + + Care Team Providers + +------+ + | Care Credit Collections Specialist Name | Role | Phone | [...] + + | 02/12/ | Documentati | [facility] | Silva Paz, | Results | | 2019 | on | NEPRHOLOGY [place] | [place] | (interpath-02/04/2020 | | | | [address] | | ) | | | | [address] [place], [place] | | | | | | [address] | | | | | | [phone] | | | +--------+ + + + [...] | | | | | [address] [place] | | | | | | [place] [address] | | | | | | [phone] | | | | | | | | +--------+---------+ + + + | 04/21/ | Office | Nephrology | Isiah Jade MD | | 2019 | Visit | | [address] | | | | | | [address] [place] | | | | | | [address] | | | | | | | | +--------+---------+ + + + | 05/07/ | Office | Cardiology | Charlee Oswald | | | 2019 | Visit | | [address] | | | | | | [address] | | | | | | [place] [address] | | | | | | [phone] | | | | | | | [...]
--- OUTSIDE RECORDS SUMMARY | ~2020-03-05 | XMS | Encounter Summary ---
Demographics + + + | Address | [address] | | | [place] [address] | + + + | Home Phone [...] [place] | | | | | [address] | | + + + + + | Deanna Lawson | ECON | Unknown | | + + + + + Care Team Providers + +------+ + | Care Supervisor Lamp Shades Name | Role | Phone | + [...] | Chronic kidney | | | | [place], [place] | [phone] | disease, stage III | | | | [address] | | (moderate) ([facility]); | | | | [phone] | | Chronic diastolic | | | | | | heart failure ([facility]) | +--------+ + + + [...] | | | | | [address] [place] | | | | | | [place] [address] | | | | | | [phone] | | | | | | | | +--------+---------+ + + + | 04/21/ | Office | Nephrology | Isiah Jade MD | | | 2019 | Visit | | [address] | | | | | | [address] [place] | | | | | | [address] | | | | | | | | +--------+---------+ + + + | 05/07/ | Office | Cardiology | Charlee Oswald | | | 2019 | Visit | | [address] | | | | | | [address] | | | | | | [place] [address] | | | | | | [phone] | | | | | | | [...] | | | | (moderate) ([facility]) | | + +------+--------+ + + | CBC with | Lab | Routin | Chronic diastolic | Expected: | | Differential | | e | heart failure ([facility]) | 12/27/2018, Expires: | | | | | Essential (primary) | 12/27/2019 | | | | | hypertension | | | | | | Chronic kidney | | | | | | disease, stage III | | | | | | (moderate) ([facility]) | | + +------+--------+ + + | Protein/Creatinine | Lab | Routin | Chronic diastolic | Expected: | | Ratio, Urine | | e | heart failure ([facility]) | 12/27/2018, Expires: | | | | | Essential (primary) | 12/27/2019 | | | | | hypertension | | | | | | Chronic kidney | | | | | | disease, stage III | | | | | | (moderate) ([facility]) | | + +------+--------+ + [...] | | | | (moderate) ([facility]) | | + +------+--------+ + + | Uric Acid | Lab | Routin | Chronic diastolic | Expected: | | | | e | heart failure ([facility]) | 12/27/2018, Expires: | | | | | Essential (primary) | 12/27/2019 | | | | | hypertension | | | | | | Chronic kidney | | | | | | disease, stage III | | | | | | (moderate) ([facility]) | | + +------+--------+ + + | Renal Function Panel | Lab | Routin | Chronic kidney | Expected: | | | | e | disease, stage III | 03/21/2019, Expires: | | | | | (moderate) ([facility]) | 08/19/2020 | + +------+--------+ + + | CBC with | Lab | Routin | Chronic kidney | Expected: | | Differential | | e | disease, stage III | 03/21/2019, Expires: | | | | | (moderate) ([facility]) | 08/19/2020 | + +------+--------+ + + | Magnesium | Lab | Routin | Chronic kidney | Expected: | | | | e | disease, stage III | 03/21/2019, Expires: | | | | | (moderate) ([facility]) | 08/19/2020 | + +------+--------+ + + | Uric Acid | Lab | Routin | Chronic kidney | Expected: | | | | e | disease, stage III | 03/21/2019, Expires: | | | | | (moderate) ([facility]) | 08/19/2020 | + +------+--------+ + + | Parathyroid Hormone, | Lab | Routin | Chronic kidney | Expected: | | Intact | | e | disease, stage III | 03/21/2019, Expires: | | | | | (moderate) ([facility]) | 08/19/2020 | + +------+--------+ [...]
--- OUTSIDE RECORDS SUMMARY | ~2020-03-05 | XMS | Encounter Summary ---
Demographics + + + | Address | [address] | | | [place] [address] | + + + | Home Phone [...] [place] | | | | | [address] | | + + + + + | Deanna Lawson | ECON | Unknown | | + + + + + Care Team Providers + +------+ + | Care Donor Center Technician Name | Role | Phone | + +------+ + | Barbara Gilman MD | PCP | | + +------+ + Encounter Details +--------+ + + + + | Date | Type | Department | Care Team | Description | +--------+ + + + + | 01/03/ | Orders Only | [facility] | Lamont Acuña MD | | | 2020 | | GASTROENTEROLOGY | [address] | | | | | [address] | [place], [place] | | | | | [place], [place] | [address] | | | | | [address] | [phone] | | | | | [phone] | | | +--------+ + + + [...] | | | | | [place], | | | | | | [place] [address] | | | | | | [phone] | | | | | | | | +--------+---------+ + + + | 04/21/ | Office | Nephrology | Isiah Jade MD | | 2019 | Visit | | [address] [facility] | | | | | | [address] [place] | | | | | | [address] | | | | | | | | +--------+---------+ + + + | 05/07/ | Office | Cardiology | Charlee Oswald | | | 2020 | Visit | | [address] | | | | | | [place] | | | | | | [place] [address] | | | | | | [phone] | | | | | | | | +--------+---------+ + + + documented as of this encounter Visit Diagnoses Not on filedocumented in this encounter"
--- OUTSIDE RECORDS SUMMARY | ~2020-03-05 | XMS | Encounter Summary ---
Demographics + + + | Address | [address] | | | [place] [address] | + + + | Home Phone [...] [place] | | | | | [address] | | + + + + + | Deanna Lawson | ECON | Unknown | | + + + + + Care Team Providers + +------+ + | Care Oim Consultant Name | Role | Phone | + +------+ + | Barbara Gilman MD | PCP | | + +------+ + Encounter Details +--------+ + + + + | Date | Type | Department | Care Team | Description | +--------+ + + + + | 01/03/ | Orders Only | [facility] | Lamont Acuña MD | | | 2020 | | GASTROENTEROLOGY | [address] | | | | | [address] | [place], [place] | | | | | [place], [place] | [address] | | | | | [address] | [phone] | | | | | [phone] | | | +--------+ + + + [...] | | | | | [address] [address], | | | | | | [place] [address] | | | | | | [phone] | | | | | | | | +--------+---------+ + + + | 04/21/ | Office | Nephrology | Isiah Jade MD | | 2019 | Visit | | [address] [facility] | | | | | | [address] [place] | | | | | | [address] | | | | | | | | +--------+---------+ + + + | 05/07/ | Office | Cardiology | Charlee Oswald | | | 2020 | Visit | | [address] | | | | | | [address] | | | | | | [place] [address] | | | | | | [phone] | | | | | | | | +--------+---------+ + + + documented as of this encounter Visit Diagnoses Not on filedocumented in this encounter"
--- OUTSIDE RECORDS SUMMARY | ~2020-03-05 | XMS | Encounter Summary ---
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 | [address] | [address] | | | | | kidney | Phone: | Phone: | | | | | complication | [phone] | [phone] | | | | | (HCC) | Fax: | Fax: | | | | | Chronic | [phone] | [phone] | | | | | diastolic | [...] + + | 01/20/ | Office | [facility] | Melquiades Baez | Right hip pain | | 2020 | Visit | [facility] | [address] | (Primary Dx); | | | | MEDIC[facility] | [facility], | Orthopedic aftercare | | | | [address] [facility] | [place] [address] | | | | | [place], [place] | [phone] | | | | | [address] | | | | | | [phone] | | | +--------+---------+ + + + [...] Baez DO - 01/21/2020 1:40 PM PDT [facility]: [...] Baez DO has created this entry using [employer] Voice Recognition software and RotoPop macros. The entry has been reviewed and [...] | | | | | [address] [place], | | | | | | [place] [address] | | | | | | [phone] | | | | | | | | +--------+---------+ + + + | 04/21/ | Office | Nephrology | Isiah Jade MD | | 2019 | Visit | | [address] [facility] | | | | | | [address] [place] | | | | | | [address] | | | | | | | | +--------+---------+ + + + | 05/07/ | Office | Cardiology | Charlee Oswald | | | 2019 | Visit | | [address] | | | | | | [address] | | | | | | [place] [address] | | | | | | [phone] | | | | | | | [...] Baez DO has created this entry using [employer] Voice | | | Recognition software and [employer]. The entry has been reviewed | | | and there may still exist sound alike word errors. | | | | | |Electronically signed by: Melquiades Baez DO 01/24/2020 1:05 PM | | | | | | | | |Melquiades Baez DO has created this entry using [employer] | | |Recognition software and RotoPop macros. The entry has been reviewed and [...]
--- OUTSIDE RECORDS SUMMARY | ~2020-03-05 | XMS | Encounter Summary ---
Demographics + + + | Address | [address] | | | [place] [address] | + + + | Home Phone | | + + + | Preferred Language | Unknown | + + + | Marital Status | | + + + | Quaker Affiliation | 1001 | + + + | Race | Unknown | + + + | Ethnic Group | Unknown | + + + Author + + + | Author | [facility] | | | and [place] | + + + | Organization | [facility] | | | [...] [place] | | | | | [address] | | + + + + + | Deanna Lawson | ECON | Unknown | | + + + + + Care Team Providers + +------+ + | Care Study Director Name | Role | Phone | [...] + + | 02/12/ | Documentati | [facility] | Silva Paz, | Results | | 2019 | on | [place]PRHOLOGY [place] | [employer]orer | (interpath-02/04/2020 | | | | [address] | | ) | | | | [address] [place], [place] | | | | | | [address] | | | | | | [phone] | | | +--------+ + + + [...] | | | | | [address] [place] | | | | | | [place] [address] | | | | | | [phone] | | | | | | | | +--------+---------+ + + + | 04/21/ | Office | Nephrology | Isiah Jade MD | | 2019 | Visit | | [address] | | | | | | [address] [place] | | | | | | [address] | | | | | | | | +--------+---------+ + + + | 05/07/ | Office | Cardiology | Charlee Oswald | | | 2019 | Visit | | [address] | | | | | | [address] | | | | | | [place] [address] | | | | | | [phone] | | | | | | | [...]
--- OUTSIDE RECORDS SUMMARY | ~2020-03-05 | XMS | Encounter Summary ---
Demographics + + + | Address | [address] | | | [place] [address] | + + + | Home Phone [...] [address] | | | | | [place] | | | | | [address] | | + + + + + | Deanna Lawson | ECON | Unknown | | + + + + + Care Team Providers + +------+ + | Care Chyron Operator Name | Role | Phone | + +------+ + | Barbara Gilman MD | PCP | | + +------+ + Encounter Details +--------+ + + + + | Date | Type | Department | Care Team | Description | +--------+ + + + + | 04/01/ | Orders Only | [facility] | Tristan Rajput, | | | 2018 | | NEPHROLOGY [facility] | [address] | | | | | [address] | [address] | | | | | [address] [facility] [place] | [place] | | | | | [address] | [address] | | | | | [phone] | [phone] | | | | | | | [...] | | | [address] [facility] | | | | | | [place] [address] | | | | | | [phone] | | | | | | | | +--------+---------+ + + + | 04/21/ | Office | Nephrology | Isiah Jade MD | | | 2019 | Visit | | [address] | | | | | | [address] [place] | | | | | | [address] | | | | | | | | +--------+---------+ + + + | 05/07/ | Office | Cardiology | Charlee Oswald | | | 2019 | Visit | | [address] | | | | | | [address] | | | | | | [place] [address] | | | | | | [phone] | | | | | | | [...] | | | LAB | | | [place] | | | | | + + [...]
--- OUTSIDE RECORDS SUMMARY | ~2020-03-05 | XMS | Encounter Summary ---
Demographics + + + | Address | [address] | | | [place] [address] | + + + | Home Phone [...] | [facility] | | | [...] [place] | | | | | [address] | | + + + + + | Deanna Lawson | ECON | Unknown | | + + + + + Care Team Providers + +------+ + | Care Drilling Superintendent Name | Role | Phone | + +------+ + PCP | Unavailable | + +------+ + Encounter Details +--------+ + + + + | Date | Type | Department | Care Team | Description | +--------+ + + + + | 07/25/ | Hospital | [facility] | Yoli Harding MD | Dyspnea, unspecified | | 2017 - | Encounter | [facility] | [address] | type; Fatigue, | | | | CARE FLOOR [address] | [place] [address] | unspecified type; | | 07/29/ | | [address] | [phone] | Altered mental | | 2016 | | [place], [place] | | status, unspecified | | | | [address] | | altered mental | | | | [phone] | | status type; | | | [...] Date of Service: 07/29/17 1003 Status: Signed Auto Body Customizer: Gutierrez Lopez MD (Physician) [facility] Service: Hospitalist Discharge Summary Date of Admission: [...] with congestive heart failure clinic, arranged by upper caser and outpatient sharon metzger. Past Medical History [...] Take 500 mg by mouth daily. 07/24/2017@0700 Rjpdsem-Ivgrwncdu-Kxwnmkk D 600-40-500 MG-MG-UNIT TB24 Take 1,200 mg [...] Take 1 tablet by mouth daily. 2016@00 Guy 3 1000 MG CAPS Take 1 capsule [...] As indicated below and as discussed by upper caser's at Bedside. Disposition: Home Condition: Stable Code Status: Full Code Discharge Instructions Diet Cardiac Diet Low Sodium Activity as Tolerated Follow up: ENEDINA Dickerson [address] [facility] [address] Go on 07/31/2017 Hospital Follow Up Guided Patient Services Guided Patient Services GPS Car Hop- JIAN Harmon [phone] Mon-Fri 7:30 AM 4:00 PM Call for any questions or concerns after your discharge home, or for help making follow up appointments. ENEDINA Sandoval [address] [place] [address] On 08/08/2017 Post-Hopsital discharge Follow-up. Medication List [...] Refills: 0 Commonly known as: VITAMIN C Iovdcyi-Rkixpftta-Rlcibrf D 600-40-500 MG-MG-UNIT Tb24 Refills: 0 glipiZIDE [...] (none) Author Type: Registered Nurse Filed: 07/29/17 8657 Date of Service: 07/29/171344 Status: Signed Auto Body Customizer: Valeria Martinez RN (Registered Nurse) Patient discharged home via private vehicle with family. Heart failure education completed, all discharge instructions discussed. Patient has heart failure education packet and paper prescriptions in possession. All questions answered, all patient belongings with family. Shalini oleary wheeled out with MILK TESTER, all vital signs stable upon discharge. VALERIA MARTINEZ RN onver jose a Transaction, Provider Unknown - 07/28/2017 3:18 PM PST Progress Notes by Carina Quintero CMA at 07/28/17 7026 Author: Carina Quintero CMA Service: (none) Author Type: Ribbon Weaver Filed: 07/28/17 8980 Date of Service: 07/28/171517 Status: Signed Auto Body Customizer: Carina Quintero CMA (Ribbon Weaver) GPS- Patient enrolled. Scheduled to see Abril on 08/08 and PCP on 07/31 onver jose a Transaction, Provider Unknown - 07/28/2017 2:43 PM PST Case Management by Yousuf Mcfadden RN at 07/28/17 1443 Author: Yousuf Mcfadden RN Service: (none) Author Type: Registered Nurse Filed: 07/28/17 1444 Date of Service: 07/28/17 144 Status: Signed Auto Body Customizer: Yousuf Mcfadden RN (Registered Nurse) I met with patient in rounds, he is enrolled in the CHF program through [facility] a nd has follow up schedule with his cardiologists. bleGutierrez lyn MD - 07/28/2017 6:56 AM PST Progress Notes by Gutierrez Lopez MD at 07/28/17 0656 Author: Gutierrez Lopez MD Service: Hospitalist Author Type: Physician Filed: 07/28/17 1342 Date of Service: 07/28/1756 Status: Signed Auto Body Customizer: Gutierrez Lopez MD (Physician) [facility] Service: Hospitalist Progress Note Hospital Day: LOS: [...] 07/28/17617 Date of Service: 07/28/17612 Status: Signed Auto Body Customizer: Stacey Ley RN (Registered Nurse) Patient again [...] Date of Service: 07/27/17 1015 Status: Signed Auto Body Customizer: Gutierrez Lopez MD (Physician) [facility] Service: Hospitalist Progress Note Hospital Day: LOS: [...] (none) Author Type: Registered Nurse Filed: 07/26/17 6839 Date of Service: 07/26/17 143 Status: Signed Auto Body Customizer: Yousuf Mcfadden RN (Registered Nurse) 07/26/17 143 [...] independent an d lives with his in [place]. [facility] an d doesn't use any DME. Andres denies having needs for discharge. Patient's PCP is:Janie Beltrán Patient's insurance:Medicare and [employer] Coverage concerns: none Medication coverage/concerns: yes/no Community [...] Date of Service: 07/26/17 0809 Status: Signed Auto Body Customizer: Nathen Coughlin MD (Physician) [facility] Service: Hospitalist Progress Note Pt: Andres Mcconnell [...] last discharge his hgb was 8.1 in [place]. He was given iv lasix with improvement [...] and managing patient and counseling/coordination. Dictation software, [employer], used which may contain error for similar [...] Author: Demond Sandy Service: (none) Author Type: Stewarding Supervisor Filed: 07/25/171950 Date of Service: 07/25/171946 Status: Signed Auto Body Customizer: Demond Sandy () Visit per pt req. Pt sitting up in bed, pt (Marissa) sitting next to bed. Pt welcomed vi sit. Chp provided caring listening. Pt did some life review - talked proudly about his & wif e's 63 years of marriage & 3 children. Pt also explained he & are [employer], an d quite involved there. Day RN & night RN came in to do hand-off report. Pt & both said how great the care has been & how they've enjoyed their nurses. Positive visit with kindly couple. Stewarding Supervisortavo Sandy onver jose a Transaction, Provider Unknown - 07/25/2017 2:49 PM PST Pharmacy Note by Renuka Reno RPH at 07/25/171448 Author: Renuka Reno RPH Service: Pharmacy Author Type: Pharmacist Filed: 07/25/171448 Date of Service: 07/25/17 1449 Status: Signed Auto Body Customizer: Renuka Reno RPH (Pharmacist) Renal Dosing Monitoring: [...] Date of Service: 07/25/17 1230 Status: Signed Auto Body Customizer: Yoli Harding MD (Physician) Related Notes: Original Note by Yoli Harding MD (Physician) filed at 07/25/17 1423 [facility] Service: Hospitalist Admission History & Physical Date [...] GI bleeding when he was seen at [facility] from June 23, 2017, to June [...] weight gain since the last 1 mo [facility]. He drinks about 3 to 4 L of fluids daily but is compliant with his diet restriction and compliant with his medications. His labs on discharge at the [facility] showe d a hemoglobin of 8.1 [...] kidney injury (HCC) ASSESSMENT & PLAN 1. Rmkrw-pt-fmoyyfi diastolic congestive heart failure most likely secondary [...] the primary care physician genia t the [place]. His INR is subtherapeutic at 1.6. We [...] Date of Service: 07/25/17 1042 Status: Signed Auto Body Customizer: Mikey Reynaga MD (Physician) Procedure Orders: 1. POCT occult blood stool [[id number]] ordered by Mikey Reynaga MD at 07/25/17 1410 [facility] Department of Emergency Medicine 10:42 AM History [...] since hospital admission. 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 Does not have a PCP. No history of COPD, emphysema, or asthma. Smoker years ago for about 30 years. Taking Lasix. Hydraulic Barker Operator: Charlee Oswald Past Medical History Diagnosis Date [...] 500 mg by mouth daily. Historical Provider Ejtlwsm-Lnapxcdcf-Cgwjrnx D 600-40-500 MG-MG-UNIT TB24 Take 1,200 mg [...] (two) times daily. Historical Provider Multiple Vitamins-Minerals ([facility] PO) Take by mouth daily. Historical Provi immanuel Guy-3 Fatty Acids (OMEGA 3 PO) Take by [...] Component Value Ref Range Date/Time Cardiac Panel [[id number]] (Abnormal) Collected: 07/25/17 1051 Order Status: Completed [...] ng/mL CK-MB Index 3.2 Troponin I, Lab [[id number]] Collected: 07/25/17 105 Order Status: Completed Specimen: Blood Updated: 07/25/17 1127 TROPONIN I <0.020 0.00 - 0.10 ng/mL BNP [[id number]] (Abnormal) Collected: 07/25/17 1051 Order Status: Completed [...] stool. Performed by ED provider. Hemoccult quality assurance tester Passed. Attending Provider Note: IMikey MD personally performed the services described i n this documentation, as scribed by Jaki Castaneda in my presence, and it is both accurate and c omplete. Chart Reviewed and Completed: 07/25/2017 6:30 PM Scribe: Krysta Parham, scribing for and in the presence of Mikye Reynaga MD. Signed by: Krysta Mendiola 07/25/2017 4:14 PM Mikey Reynaga MD 07/25/17 1834 onversion Transgenia dunbar, Provider Unknown - 07/25/2017 10:10 AM PST ED Notes by Michelle Dawson RN at 07/25/17 1010 Author: Michelle Dawson RN Service: (none) Author Type: Registered Nurse Filed: 07/25/17 1048 Date of Service: 07/25/17 1010 Status: Signed Auto Body Customizer: Michelle Dawson RN (Registered Nurse) 87 yr [...] Date of Service: 07/29/17 1300 Status: Signed Auto Body Customizer: Valeria Martinez RN (Registered Nurse) Problem: Discharge [...] 0552 Date of Service: 07/28/172208 Status: Addendum Auto Body Customizer: Wanda Levine RN (Registered Nurse) Related Notes: [...] 07/28/171728 Date of Service: 07/28/171726 Status: Signed Auto Body Customizer: Valeria Martinez RN (Registered Nurse) Problem: Fluid [...] 07/28/17511 Date of Service: 07/28/17511 Status: Signed Auto Body Customizer: Stacey Ley RN (Registered Nurse) Problem: Fluid [...] 07/27/171529 Date of Service: 07/27/171529 Status: Signed Auto Body Customizer: Candice Rodriguez RN (Registered Nurse) Problem: Fluid [...] 07/27/17437 Date of Service: 07/27/17437 Status: Signed Auto Body Customizer: Bhumi Chaparro RN (Registered Nurse) Problem: Safety [...] 07/27/17435 Date of Service: 07/27/17435 Status: Signed Auto Body Customizer: Bhumi Chaparro RN (Registered Nurse) Problem: Safety [...] 07/26/17603 Date of Service: 07/26/17603 Status: Signed Auto Body Customizer: Bhumi Chaparro RN (Registered Nurse) Problem: Safety [...] 07/25/171515 Date of Service: 07/25/171514 Status: Signed Auto Body Customizer: Valeria Martinez RN (Registered Nurse) Problem: Fluid [...] 07/25/171437 Date of Service: 07/25/171437 Status: Signed Auto Body Customizer: Ramandeep Abbott RPH (Pharmacist) Rx Admission Medication History Note I have reviewed the medication history for appropriate doses obtained by: Pharmacy Medicat ion History Hat Marker. After reviewing the home medication list : I agree with the home medication list. - Removed aspirin as no longer taking - Patient does not follow with the [facility] Coumadin clinic, however, he knew his doses and t akes it every night at 1800. Last does was 07/24/17 Please Review and Order Home Medications as necessary. Thanks Ramandeep Abbott RPH 07/25/2017 2:37 PM >> Donna Hernandez CPhT 07/25/2017 14:29 Rx Medication History Hat Marker Note Patients Preferred Pharmacy has been updated in EPIC: yes -[facility] - [place], [place] - [address] [place] [address] Patients Allergies have been updated and marked [...] | | | | | [address] [place], | | | | | | [place] [address] | | | | | | [phone] | | | | | | | | +--------+---------+ + + + | 04/21/ | Office | Nephrology | Isiah Jade MD | | 2019 | Visit | | [address] [facility] | | | | | | [address] [place] | | | | | | [address] | | | | | | | | +--------+---------+ + + + | 05/07/ | Office | Cardiology | Tatoleena Charlee | | | 2020 | Visit | | MARSHAL Chauhan [address] | | | | | | [address] | | | | | | [place] [address] | | | | | | [phone] | | | | | | | [...] | | | Fingerstick | performed at [facility];[address] | | LAB | | | [address];[place], [place] | | | | | | [address] | | | | + + + [...] | | | Fingerstick | performed at [facility];[address] | | LAB | | | | [address];[place] | | | | | | [address] | | | | + + + [...] | | | Fingerstick | performed at [facility];[address] | | LAB | | | | [address];[place], [place] | | | | | | [address] | | | | + + + [...] [place];[address] | | | | | | [address];[place] | | | | | | [address] | | | | + + + [...] | | | Basophils | performed at [facility], [address] | [address] | LAB | | | | [address], | | | | | | [place] [address] | | | | + + + [...] EXTERNAL | | | | performed at [facility], [address] | | LAB | | | | [address], | | | | | | [place] [address] | | | | + + + [...] | | | | | | at [facility], [address] | | | | | | [address], | | | | | | [place] [address] | | | | + + + [...] | | | Fingerstick | performed at [facility];[address] | | LAB | | | [address];[place], [place] | | | | | | [address] | | | | + + + [...] | | | Fingerstick | performed at [facility];[address] | | LAB | | | | [address];[place] | | | | | | [address] | | | | + + + [...] | | | Fingerstick | performed at [facility];[address] | | LAB | | | | [address];[place] | | | | | | [address] | | | | + + + [...] RECEIVEDAbnormal | | | Testing performed at [facility];[address] [place] [address];[place] [address] | | + + + + +---------+ [...] | | | Fingerstick | performed at [facility];[address] | | LAB | | | | [address];[place], [place] | | | | | | [address] | | | | + + + [...] [place];[address] | | | | | | [facility];[place], [place] | | | | | | [address] | | | | + + + [...] | | | Basophils | performed at [facility], [address] | K/u[address] | LAB | | | | [address], | | | | | | [place] [address] | | | | + + + [...] | | | | | | at [facility], [address] | | | | | | [address], | | | | | | [place] [address] | | | | + + + [...] | | | Fingerstick | performed at [facility];[address] | | LAB | | | | [address];[place] | | | | | | [address] | | | | + + + [...] | | | Fingerstick | performed at [facility];[address] | | LAB | | | [address];[place], [place] | | | | | | [address] | | | | + + + [...] | | | Urine | performed at [facility], [address] | | | | | | [address], | | | | | | [place] [address] | | | | + + + [...] LAB | | | | performed at [facility], 1995 | | | | | | [address], | | | | | | [place] [address] | | | | + + + [...] | | | Fingerstick | performed at [facility];[address] | | LAB | | | [address];[place], [place] | | | | | | [address] | | | | + + + [...] | | | Fingerstick | performed at [facility];[address] | | LAB | | | [address];[place], [place] | | | | | | [address] | | | | + + + [...] | | | | | | [place] [address] | | | | + + + [...] performed at [facility] | | | | | | [facility];[place], [place] | | | | | | [address] | | | | + + + [...] | | | Reticulocyt | performed at [facility], [address] | | LAB | | | [address] | [address], | | | | | | [place] [address] | | | | + + [...] | | | Basophils | performed at [facility], [address] | K/uL | LAB | | | | [address], | | | | | | [place] [address] | | | | + + + [...] | | | External | performed at [facility], [address] | | LAB | | | | [address], | | | | | | [place] [address] | | | | + + + [...] | | | | | | at [facility], [address] | | | | | | [address], | | | | | | [place] [address] | | | | + + + [...] | | | Fingerstick | performed at [facility];[address] | | LAB | | | | [address];[place] | | | | | | [address] | | | | + + + [...] | | | Fingerstick | performed at [facility];[address] | | LAB | | | | [address];[place] | | | | | | [address] | | | | + + + [...] | | | Fingerstick | performed at [facility];[address] | | LAB | | | | [address];[place] | | | | | | [address] | | | | + + + [...] aortic stenosis. | | | Mitral Valve: Cnqk-cl-ldebfyrj mitral regurgitation is present. | | | [...] 1.88 cm AR Dec | | | Rusk: 2.33 m/s2 AR Dec Time: 1398.10 ms [...] TV A Good: 0.32 m/s TV Dec Rusk: 2.31 m/s2 | | | TV Dec Time: 215.03 ms TV E Good: 0.49 m/s TV E/A Ratio: | | | 1.53 Plastic Technician: DOMITILA Authenticated by: JENNIFER SWAIN MD | | | Report Date/Time: -- [id number] | | + + + + + [...] evidence of aortic stenosis.Mitral Valve: | | Sfru-zb-gnbrgiel mitral regurgitation is present.Mitral Valve: Mild mitral [...] BPMR-R: 973.47 msLAESV(A-L): 99.35 mlLAAs A2C: 27.25 gg8OQJIT A-L A2C: 99.85 | | mlLAESV MOD A2C: 93.96 mlLALs A2C: 6.31 cmLAAs A4C: 26.56 it4TEZFE A-L A4C: | | 96.85 mlLAESV MOD A4C: 88.08 mlLALs A4C: 6.18 cmTAPSE: 1.88 cmAR Dec Rusk: 2.33 | | m/s2AR Dec Time: 1398.10 msAR maxP.73 mmHgAR PHT: 405.45 msAR Vmax: 3.26 | | m/sHR: 64.46 BPMAV maxP.44 mmHgAV meanP.16 mmHgAV Vmax: 1.36 m/Armen | | Vmean: 0.98 m/Amren VTI: 29.20 cmAVA Vmax: 2.97 cm2AVA (VTI): 2.95 xx9ZAYC Dopp: | | 5.01 l/minHR: 58.18 BPMLVOT [...] A | | Good: 0.32 m/sTV Dec Rusk: 2.31 m/s2TV Dec Time: 215.03 msTV E Good: 0.49 m/sTV | | E/A Ratio: 1.53 Plastic Technician: GDAuthenticated by: JENNIFER SWAIN [facility] | | Date/Time: -- [id number] IMPRESSION: 1. Left ventricular systolic function is [...] | |TAPSE: 1.88 cm | |AR Dec Rusk: 2.33 m/s2 | |AR Dec Time: 1398.10 [...] A Good: 0.32 m/s | |TV Dec Rusk: 2.31 m/s2 | |TV Dec Time: 215.03 ms | |TV E Good: 0.49 m/s | |TV E/A Ratio: 1.53 | | | |Plastic Technician: GD | |Authenticated by: JENNIFER SWAIN MD | |Report Date/Time: -- [id number]:27 | | | |IMPRESSION: | |1. Left [...] | | | Fingerstick | performed at [facility];[address] | | LAB | | | [address];[place], [place] | | | | | | [address] | | | | + + + [...] performed at [facility] | | | | | | [facility];[place], [place] | | | | | | [address] | | | | + + + [...] | | | Basophils | performed at [facility], [address] | K/uL | LAB | | | | [address], | | | | | | [place] [address] | | | | + + + [...] EXTERNAL | | | | performed at [facility], [address] | uIU/mL | LAB | | | | [address], | | | | | | [place] [address] | | | | + + + [...] | | | | | [place] [address] | | | | + + + [...] EXTERNAL | | | | performed at [facility];[address] | | LAB | | | | [address];[place], [place] | | | | | | [address] | | | | + + + [...] EXTERNAL | | | | performed at [facility], [address] | | LAB | | | | [address], | | | | | | [place] [address] | | | | + + + [...] + + | Hemoglobin | 5.5Comment: The Afghan | 4.0 - 6.0 % | EXTERNAL [...] | | | | | performed at [facility], [address] | | | | | | [facility], | | | | | | [place] [address] | | | | + + + [...] | | | | | | at [facility], [address] | | | | | | [address], | | | | | | [place] [address] | | | | + + + [...] performed at [facility] | | | | | | [facility];[place], [place] | | | | | | [address] | | | | + + + [...] | | | Fingerstick | performed at [facility];[address] | | LAB | | | | [address];[place] | | | | | | [address] | | | | + + + [...] [place];[address] | | | | | | [address];[place], [place] | | | | | | [address] | | | | + + + [...] | | | Fingerstick | performed at [facility];[address] | | LAB | | | | [address];[place] | | | | | | [address] | | | | + + + [...] - 04/03/2019 7:51 PM PDT ANDRES Kilpatrick EICHHOLZ[birth year] years MaleXR | | CHEST 2 VIEW FRONTAL AND INTJAKF37/5/2017 11:18 AM INDICATION: Shortness of breath | [...] | | | | | | [address];[place], [place] | | | | | | [address] | | | | + + + [...] EXTERNAL | | | | performed at [facility];[address] | | LAB | | | | [address];[place] | | | | | | [address] | | | | + + + [...] | Performed by ED provider. Hemoccult quality assurance tester Passed. | | + + + + [...] (500), | | | | | | supervising editor news reel ART BROWN (2) | | | | | | on 07/25/2017 5:09:42 PM | | | | | | | | | | + + + + + + + + | Specimen | + + | | + + + + + | Narrative | Performed At | + + + | Historically converted procedure from [facility] Epic environment | EXTERNAL LAB | + [...]
--- OUTSIDE RECORDS SUMMARY | ~2020-03-05 | XMS | Encounter Summary ---
Demographics + + + | Address | [address] | | | [place] [address] | + + + | Home Phone [...] [place] | | | | | [address] | | + + + + + | Deanna Lawson | ECON | Unknown | | + + + + + Care Team Providers + +------+ + | Care Photographic Double Name | Role | Phone | + +------+ + | Barbara Gilman MD | PCP | | + +------+ + Encounter Details +--------+ + + + + | Date | Type | Department | Care Team | Description | +--------+ + + + + | 01/30/ | Orders Only | [facility] | Isiah Jade MD | Hypertension goal BP | | 2020 | | NEPHROLOGY [place] | [address] [place] | (blood pressure) < | | | | [address] [place] | [address] [place], [place] | 140/80 (Primary Dx); | | | | [address] [place], [place] | [address] | 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, without | | | | | | long-term current | | | | | | use of insulin | | | | | | ([facility]); Secondary | | | | | | hyperparathyroidism | | | | | | ([facility]); CKD (chronic | | | | | | kidney disease) | | | | | | stage 3, GFR 30-59 | | | | | | ml/min ([facility]); ATN | | | | | | (acute tubular | | | | | | necrosis) ([facility]) | +--------+ + + + [...] | | | | | | [place] [address] | | | | | | [phone] | | | | | | | | +--------+---------+ + + + | 04/21/ | Office | Nephrology | Isiah Jade MD | | | 2019 | Visit | | [address] | | | | | | [address] [facility] | | | | | [address] | | | | | | | | +--------+---------+ + + + | 05/07/ | Office | Cardiology | DarekCharlee | | | 2019 | Visit | | [address] | | | | | | [address] | | | | | | [place] [address] | | | | | | [phone] | | | | | | | [...] | | | | | | ml/min ([facility]) ATN | | | | | | (acute tubular | | | | | | necrosis) ([facility]) | | + +------+--------+ + [...] | | | | | | ml/min ([facility]) ATN | | | | | | (acute tubular | | | | | | necrosis) ([facility]) | | + +------+--------+ + [...]
--- OUTSIDE RECORDS SUMMARY | ~2020-03-05 | XMS | Encounter Summary ---
Demographics + + + | Address | [address] | | | [place] [address] | + + + | Home Phone [...] [place] | | | | | [address] | | + + + + + | Deanna Lawson | ECON | Unknown | | + + + + + Care Team Providers + +------+ + | Care Inspector Paper Products Name | Role | Phone | + +------+ + | Barbara Gilman MD | PCP | | + +------+ + Encounter Details +--------+ + + + + | Date | Type | Department | Care Team | Description | +--------+ + + + + | 06/25/ | Orders Only | [facility] | Charlee Oswald | | | 2018 | | CARDIOLOGY ALYX | [address] | | | | | [address] | [address] | | | | | [address] | [place] [address] | | | | | [place] | [phone] | | | | | [address] | | | | | | [phone] | | | +--------+ + + + [...] | | | | | [address] [place] | | | | | | [place] [address] | | | | | | [phone] | | | | | | | | +--------+---------+ + + + | 04/21/ | Office | Nephrology | Isiah Jade MD | | | 2019 | Visit | | [address] [facility] | | | | | | [address] | | | | | | [address] | | | | | | | | +--------+---------+ + + + | 05/07/ | Office | Cardiology | Charlee Oswald | | | 2019 | Visit | | [address] | | | | | | [address] | | | | | | [place] [address] | | | | | | [phone] | | | | | | | [...]
--- OUTSIDE RECORDS SUMMARY | ~2020-03-05 | XMS | Encounter Summary ---
Demographics + + + | Address | [address] | | | [place] [address] | + + + | Home Phone [...] [place] | | | | | [address] | | + + + + + | Deanna Lawson | ECON | Unknown | | + + + + + Care Team Providers + +------+ + | Care Scallop Binder Name | Role | Phone | + +------+ + | Barbara Gilman MD | PCP | | + +------+ + Encounter Details +--------+ + + + + | Date | Type | Department | Care Team | Description | +--------+ + + + + | 09/02/ | Orders Only | [facility] | Enoch Thompson, | | | 2019 | | CARDIOLOGY [place] | [address] | | | | | [address] | [facility], | | | | | [place], [place] | [place] [address] | | | | | [address] | [phone] | | | | | [phone] | | | +--------+ + + + [...] | | | | | [address] [place], | | | | | | [place] [address] | | | | | | [phone] | | | | | | | | +--------+---------+ + + + | 04/21/ | Office | Nephrology | Isiah Jade MD | | | 2019 | Visit | | [address] [facility] | | | | | | [address] [place] [address] | | | | | | [address] | | | | | | | | +--------+---------+ + + + | 05/07/ | Office | Cardiology | Charlee Oswald | | | 2019 | Visit | | [address] | | | | | | [address] | | | | | | [place] [address] | | | | | | [phone] | | | | | | | [...]
--- OUTSIDE RECORDS SUMMARY | ~2020-03-05 | XMS | Encounter Summary ---
Demographics + + + | Address | [address] | | | [place] [address] | + + + | Home Phone [...] [place] | | | | | [address] | | + + + + + | Deanna Lawson | ECON | Unknown | | + + + + + Care Team Providers + +------+ + | Care Mangle Press Catcher Name | Role | Phone | + +------+ + | Barbara Gilman MD | PCP | | + +------+ + Reason for Visit + + + | Reason | Comments | + + + | Device Check | [place] pacemaker in office device check w/Jay | | (In-office) | | + + + Encounter Details +--------+ + + + + | Date | Type | Department | Care Team | Description | +--------+ + + + + | 05/07/ | Procedure | [facility] | Enoch Thompson, | Cardiac pacemaker in | | 2019 | visit | CARDIOLOGY [place] | MD [address] | situ (Primary Dx); | | | | [address] | [place], | 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 kettle cook: Thi Burch RN Associated attestation - Enoch Thompson MD - 06/01/2019 1:40 PM PDTA generator change o ut was performed on February 04, 2019. Normal device function was seen today for this [place] Sc ientific single-chamber device. The pacing threshold [...] | | | | | [address] [place] | | | | | | [place] [address] | | | | | | [phone] | | | | | | | | +--------+---------+ + + + | 04/21/ | Office | Nephrology | Isiah Jade MD | | | 2019 | Visit | | [address] | | | | | | [address] | | | | | | [address] | | | | | | | | +--------+---------+ + + + | 05/07/ | Office | Cardiology | Charlee Oswald | | | 2019 | Visit | | [address] | | | | | | [address] | | | | | | [place] [address] | | | | | | [phone] | | | | | | | [...] | | scheduled encounter for additional details. kettle cook: Thi Burch RN | | | | | |See device data attached to scheduled encounter for additional | | |details. | | | | | |kettle cook: Thi Burch RN | | | | [...]
--- OUTSIDE RECORDS SUMMARY | ~2020-03-05 | XMS | Encounter Summary ---
Demographics + + + | Address | [address] | | | [place] [address] | + + + | Home Phone [...] [place] | | | | | [address] | | + + + + + | Deanna Lawson | ECON | Unknown | | + + + + + Care Team Providers + +------+ + | Care Agency Legal Counsel Name | Role | Phone | + [...] + + | 11/10/ | Procedure | [facility] | | Cardiac pacemaker in | | 2019 | visit | CARDIOLOGY [place] | | situ (Primary Dx) | | | | [address] | | | | | | [place] | | | | | | [address] | | | | | | [phone] | | | +--------+ + + + [...] of this encounter Procedure Notes Mercedez Bains, Semiconductor Wafer Inspector - 11/11/2019 8:00 AM PDTAssociated Order(s): DEVICE INT ERROGATION- REMOTEProcedure(s): DEVICE INTERROGATION- REMOTEPre-Procedure Diagnose(s): Prese nce of cardiac pacemaker PACEMAKER REMOTE INTERROGATION REPORT Name: Andres Guzmán PCP: Barbara Gilman MD : 1930 Primary cardiology provider: Charlee Oswald Primary electrophysiology provider: Enoch Thompson Device resistance welder: i-design Multimedia Device type: Single chamber (Ventricular) Battery Longevity: [...] | | | | | [address] [place], | | | | | | [place] [address] | | | | | | [phone] | | | | | | | | +--------+---------+ + + + | 04/21/ | Office | Nephrology | Isiah Jade MD | | | 2019 | Visit | | [address] | | | | | | [address] [place] | | | | | | [address] | | | | | | | | +--------+---------+ + + + | 05/07/ | Office | Cardiology | Charlee Oswald | | | 2019 | Visit | | [address] | | | | | | [address] | | | | | | [place] [address] | | | | | | [phone] | | | | | | | [...] Mercedez Jensen | [employer]ACE[employer] | | Herson, Semiconductor Wafer Inspector 11/12/2019 4:50 PMPACEUTKER REMOTE | | | INTERROGATION REPORT Name: Andres Guzmán PCP: Barbara Elkins | | | MD Mukul : 1930MRN: [id number] Primary cardiology | | | provider: Charlee Oswald Primary electrophysiology provider: Enoch | | | Jay Device resistance welder: i-design Multimedia Device type: Single | | | chamber [...]
--- OUTSIDE RECORDS SUMMARY | ~2020-03-05 | XMS | Encounter Summary ---
Demographics + + + | Address | [address] | | | [place] [address] | + + + | Home Phone [...] [place] | | | | | [address] | | + + + + + | Deanna Lawson | ECON | Unknown | | + + + + + Care Team Providers + +------+ + | Care Box Sealing Inspector Name | Role | Phone | [...] + + | 12/28/ | Anesthesia | [facility] | Maco Wolf, | | | 2019 | Event | [facility] | COFFEE SAMPLER [address] | | | | | INTRA [address] | [place] [address] | | | | | [address] [place] | [phone] | | | | | [address] | | | | | | [phone] | | | +--------+ + + + [...] Nance | | | | | JIAN Riso | | +--------+ + + + | Wound | 12/25/19; 1050; N; Other; Right; | 12/25/19 1050 by | | | | hip; blister(s), skin tear | Denise Leborn RN | | +--------+ + + + [...] | Salma, | | | | | Ice Cream Van Vendor | | +--------+ + + + | [...] | Leatha Mayer, | | IV | [id number] catheter system; | | RN | | | 20 gauge; 0; tolerated well; | | | | | 12/30/19; 0600 | | | +--------+ + + + | Periph | 12/27/19; 2042; Right; | 12/27/192042 by Lawanda | 12/30/19 1350 by | | eral | Antecubital; 20 gauge; 12/30/19; | Savana Bowden, RN | Leatah Mayer, | | IV | 1350 | [...] Andres Jones Ramirez 89 y.o. male 1930 [id number] Procedure(s) EGD (N/A Mouth) Cooperates? Yes Mental [...] by Maco Wolf CRNA 12/29/2019 9:48 AM [facility] Maco Wolf CRNA at 0 9:48 AM PDTAnesthesia Preprocedure Evaluation - Maco Wolf CRNA - 12/29/2019 8:59 A M PDT ANESTHESIA PREANESTHESIA EVALUATION Andres Guzmán 89 y.o. male 1930 [id number] Procedure(s): EGD (N/A Mouth) Medical,anesthesia, drug, allergy [...] and agrees to proceed. Discussed plan with COFFEE SAMPLER. Electronically Signed by: Maco Wolf CRNA ESig date/time: 12/29/2019 8:59 AM documented in this e ncounter Miscellaneous Notes Anesthesia Post-op Handoff - Maco Wolf CRNA - 12/29/2019 9:46 AM PDTFormatting of th is note might be different from the original. ANESTHESIA HANDOFF NOTE Andres Jones Ramirez 89 y.o. male 1930 [id number] EGD (N/A Mouth) HANDOFF NOTE Handoff Protocol [...] were reviewed with the receiving team. Maco oWlf CRNA 12/29/2019 9:46 AM [facility] by Maco Wolf CRNA at [...] | | | | | | [place] [address] | | | | | | [phone] | | | | | | | | +--------+---------+ + + + | 04/21/ | Office | Nephrology | Isiah Jade MD | | | 2019 | Visit | | [address] | | | | | | [address] [place] [address] | | | | | | [address] | | | | | | | | +--------+---------+ + + + | 05/07/ | Office | Cardiology | Charlee Oswald | | | 2019 | Visit | | [address] | | | | | | [address] | | | | | | [place] [address] | | | | | | [phone] | | | | | | | [...]
--- OUTSIDE RECORDS SUMMARY | ~2020-03-05 | XMS | Encounter Summary ---
Demographics + + + | Address | [address] | | | [place] [address] | + + + | Home Phone [...] [place] | | | | | [address] | | + + + + + | Deanna Lawson | ECON | Unknown | | + + + + + Care Team Providers + +------+ + | Care Sack Cleaner Name | Role | Phone | + +------+ + | Barbara Gilman MD | PCP | | + +------+ + Encounter Details +--------+ + + + + | Date | Type | Department | Care Team | Description | +--------+ + + + + | 01/25/ | Orders Only | [facility] | Enoch Thompson, | | | 2019 | | CARDIOLOGY [place] | [address] | | | | | [address] | [address] [facility], | | | | | [place], [place] | [place] [address] | | | | | [address] | [phone] | | | | | [phone] | | | +--------+ + + + [...] | | | | | [address] [place], | | | | | | [place] [address] | | | | | | [phone] | | | | | | | | +--------+---------+ + + + | 04/21/ | Office | Nephrology | Isiah Jade MD | | | 2019 | Visit | | [address] [facility] | | | | | | [address] | | | | | | [address] | | | | | | | | +--------+---------+ + + + | 05/07/ | Office | Cardiology | Charlee Oswald | | | 2019 | Visit | | [address] | | | | | | [address] | | | | | | [place] [address] | | | | | | [phone] | | | | | | | [...]
--- OUTSIDE RECORDS SUMMARY | ~2020-03-05 | XMS | Encounter Summary ---
Demographics + + + | Address | [address] | | | [place] [address] | + + + | Home Phone [...] [place] | | | | | [address] | | + + + + + | Deanna Lawson | ECON | Unknown | | + + + + + Care Team Providers + +------+ + | Care Audio Visual Aide Name | Role | Phone | [...] + + | 01/29/ | Documentati | [facility] | Damon, | Results (01/22/20, | | 2020 | on | [facility]Y [facility] | [facility] | 01/27/20) | | | | [address] | Livestock Inspector | | | | | [address] [facility] [place] | | | | | | [address] | | | | | | [phone] | | | +--------+ + + + [...] | | | | | [address] [place], | | | | | | [place] [address] | | | | | | [phone] | | | | | | | | +--------+---------+ + + + | 04/21/ | Office | Nephrology | Isiah Jade MD | | 2019 | Visit | | [address] [facility] | | | | | | [address] | | | | | | [address] | | | | | | | | +--------+---------+ + + + | 05/07/ | Office | Cardiology | Charlee Oswald | | | 2019 | Visit | | [address] | | | | | | [address] | | | | | | [place] [address] | | | | | | [phone] | | | | | | | [...] 1.001 - 1.030 | | | | [place], | | | | | | Urine [...]
--- OUTSIDE RECORDS SUMMARY | ~2020-03-05 | XMS | Encounter Summary ---
Demographics + + + | Address | [address] | | | [place] [address] | + + + | Home Phone [...] [place] | | | | | [address] | | + + + + + | Deanna Lawson | ECON | Unknown | | + + + + + Care Team Providers + +------+ + | Care School Speech Therapist Name | Role | Phone | + [...] + + | 02/19/ | Telephone | [facility] | Isiah Jade MD | Other (Lab Results ) | | 2019 | | NEPRHOLOGY [place] | [address] | | | | | [address] | [address] [place], [place] | | | | | [address] [place], [place] | [address] | | | | | [address] | | | | | | [phone] | | | +--------+ + + + [...] | | | | | | [place] [address] | | | | | | [phone] | | | | | | | | +--------+---------+ + + + | 04/21/ | Office | Nephrology | Isiah Jade MD | | | 2019 | Visit | | [address] | | | | | | [facility] | | | | | | [address] | | | | | | | | +--------+---------+ + + + | 05/07/ | Office | Cardiology | Charlee Oswald | | | 2019 | Visit | | [address] | | | | | | [address] | | | | | | [facility] [place] [address] | | | | | | [phone] | | | | | | | [...]
--- OUTSIDE RECORDS SUMMARY | ~2020-03-05 | XMS | Encounter Summary ---
Demographics + + + | Address | [address] | | | [place] [address] | + + + | Home Phone [...] [place] | | | | | [address] | | + + + + + | Deanna Lawson | ECON | Unknown | | + + + + + Care Team Providers + +------+ + | Care Magazine Supervisor Name | Role | Phone | [...] + + | 02/05/ | Office | [facility] | Dina Sanchez DO | Permanent atrial | | 2020 | Visit | CARDIOLOGY [place] | [address] | fibrillation (HCC) | | | | [address] | [place] | (Primary Dx); | | | | [address] | [address] | Hypertension goal BP | | | | [place] | | (blood pressure) < | | | | [address] | | 140/80; Chronic | | | | [phone]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 | | | [...] Sanchez DO - 02/06/2020 1:00 PM PDT [facility] Cardiology Cardiology Consult Note Reason [...] who presents to the Cardiology office to [facility] for the above past medical [...] was discharged, he had another hospitalization at [facility] for deconditioning and difficulty with ambulation. [...] Symbicort, but never received these medications from [facility] after he was discharged. He reports that [...] GAMMA NAIL; Surgeon: Melquiades Baez DO; [place] [facility] [place]GICAL [place] CATARACT EXTRACTION - bilateral OTHER SURGICAL HISTORY 2015 PACEMAKER INSERTION TONSILLECTOMY AND ADENOIDECTOMY UPPER GASTROINTESTINAL ENDOSCOPY N/A 12/29/2019 Procedure: EGD; Surgeon: Lamont Acuña MD; [place] [facility] [place] MEDICATIONS Home Medications Outpatient [...] file Gets together: Not on file Attends religion service: Not on file Active member of [...] | | | | | | [place] [address] | | | | | | [phone] | | | | | | | | +--------+---------+ + + + | 04/21/ | Office | Nephrology | Isiah Jade MD | | | 2019 | Visit | | [address] | | | | | | [address] | | | | | | [address] | | | | | | | | +--------+---------+ + + + | 05/07/ | Office | Cardiology | Charlee Oswald | | | 2019 | Visit | | [address] | | | | | | [address] | | | | | | [place] [address] | | | | | | [phone] | | | | | | | [...]
--- OUTSIDE RECORDS SUMMARY | ~2020-03-05 | XMS | Encounter Summary ---
Demographics + + + | Address | [address] | | | [place] [address] | + + + | Home Phone [...] [place] | | | | | [address] | | + + + + + | Deanna Lawson | ECON | Unknown | | + + + + + Care Team Providers + +------+ + | Care Cable Installer Name | Role | Phone | + +------+ + | Barbara Gilman MD | PCP | | + +------+ + Encounter Details +--------+ + + + + | Date | Type | Department | Care Team | Description | +--------+ + + + + | 09/08/ | Orders Only | [facility] | Todd Iqbal Ajith | | | 2016 | | CARDIOLOGY [place] | MD [address] | | | | | [address] | [address] | | | | | [address] | [place] [address] | | | | | [place], [place] | [phone] | | | | | [address] | | | | | | [phone] | | | +--------+ + + + [...] | | | | | [address] [place], | | | | | | [place] [address] | | | | | | [phone] | | | | | | | | +--------+---------+ + + + | 04/21/ | Office | Nephrology | Isiah Jade MD | | | 2019 | Visit | | [address] | | | | | | [address] | | | | | | [address] | | | | | | | | +--------+---------+ + + + | 05/07/ | Office | Cardiology | Charlee Oswald | | | 2019 | Visit | | [address] | | | | | | [address] | | | | | | [place] [address] | | | | | | [phone] | | | | | | | [...] Performed At | + + + | [facility] CARDIOLOGY Nuclear Lexiscan Stress Test [...] Kobe, Rad Conversion - 04/11/2019 9:03 PM [facility] CARDIOLOGY | | Nuclear Lexiscan [...]
--- OUTSIDE RECORDS SUMMARY | ~2020-03-05 | XMS | Encounter Summary ---
Demographics + + + | Address | [address] | | | [place] [address] | + + + | Home Phone [...] [place] | | | | | [address] | | + + + + + | Deanna Lawson | ECON | Unknown | | + + + + + Care Team Providers + +------+ + | Care Stretch Press Operator Name | Role | Phone | [...] + + | 01/29/ | Documentati | [facility] | Damon, | Results (01/22/20, | | 2020 | on | [facility] | [facility] | 01/27/20) | | | | [address] | [place] | | | | | [address] [facility] [place] | | | | | | [address] | | | | | | [phone] | | | +--------+ + + + [...] | | | | | [address] [place], | | | | | | [place] [address] | | | | | | [phone] | | | | | | | | +--------+---------+ + + + | 04/21/ | Office | Nephrology | Isiah Jade MD | | 2019 | Visit | | [address] [facility] | | | | | | [address] | | | | | | [address] | | | | | | | | +--------+---------+ + + + | 05/07/ | Office | Cardiology | Charlee Oswald | | | 2019 | Visit | | [address] | | | | | | [address] | | | | | | [place] [address] | | | | | | [phone] | | | | | | | [...] 1.001 - 1.030 | | | | [place], | | | | | | Urine [...]
--- OUTSIDE RECORDS SUMMARY | ~2020-03-05 | XMS | Encounter Summary ---
Demographics + + + | Address | [address] | | | [place] [address] | + + + | Home Phone [...] [place] | | | | | [address] | | + + + + + | Deanna Lawson | ECON | Unknown | | + + + + + Care Team Providers + +------+ + | Care Factory Superintendent Name | Role | Phone | [...] + + | 12/20/ | Hospital | [facility] | Julián Messina MD | Acute GI bleeding | | 2020 - | Encounter | [facility] | [address] | (Primary Dx); Closed | | | | [address] | [address] [place], [place] | comminuted | | 12/31/ | | [place], [place] | [address] | intertrochanteric | | 2020 | | [address] | | fracture of right | | | | [phone] | Regino Greene MD | femur with routine | | | | | [address] | healing; 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 Rule out Dmuont's esophagus. Biopsied. - Small hiatal hernia. - [...] was on board. No immediate indication for DOCTOR OF OSTEOPATHY. Patient was also seen by physical therapy and occupational therapy and was recommended for discharging to SNF. However patient will b e going to [facility] bed at this time. Patient also [...] BUNCREARATIO 30 01/01/2020 PTH 72.57 (A) 04/01/2019 [id number] 25.2 (L) 12/27/2019 CALCIUM 8.6 01/01/2020 PHOS [...] been following up with [facility] mena in [place]. He has unrecovered acute kidney injury and a higher baseline creatinine. At this time there is no clinical uremia, refractory volume overload, refractory acidosis, refractory hyperkalemia and no urgent indication of starting DOCTOR OF OSTEOPATHY. Neither is there an indication for diagnostic [...] Incentive spirometry. Transfuse Prn. No indication for DOCTOR OF OSTEOPATHY for now. Await renal recovery. On discharge [...] was completed later after rounds. Dictation software, [employer], was used which may contain error for [...] but not limited to potential need for DOCTOR OF OSTEOPATHY . This is a patient with multiple [...] [facility] Inpatient Wound Ostomy Care [phone] 01/01/2020 11:46 AM Chai, Savana Irving RN [...] BUNCREARATIO 25 12/31/2019 PTH 72.57 (A) 04/01/2019 [id number] 25.2 (L) 12/27/2019 CALCIUM 8.5 12/31/2019 PHOS [...] been following up with ENEDINA mena in [place]. He has unrecovered acute kidney injury and a higher baseline creatinine. At this time there is no clinical uremia, refractory volume overload, refractory acidosis, refractory hyperkalemia and no urgent indication of starting DOCTOR OF OSTEOPATHY. Neither is there an indication for diagnostic [...] Incentive spirometry. Transfuse Prn. No indication for DOCTOR OF OSTEOPATHY for now. Await renal recovery. I discussed [...] was completed later after rounds. Dictation software, [employer], was used which may contain error for [...] but not limited to potential need for DOCTOR OF OSTEOPATHY . This is a patient with multiple [...] . ORTHOPEDIC SURGERY PROGRESS NOTE Patient Name: Anrdes Guzmán Patient : 1930 Gender: male Date [...] wound RN note for treatment. [facility] ed, continue wound care at swing bed, send with extra dressing supplies. *Metabolic bone disorder: elevated PTH and phosphorus. Treatment per crab butcher (see thei r note). Subjective No chest [...] who was admitted as a transfer from [facility] due t o a mechanical fall [...] and he was accepted by [facility] in [place], [place] for rehabilitation purposes. Hospital stay was [...] Facilty-Administered PRN Medications Ordered in [facility] Medication Dose Route Frequency Provider Last Rate [...] but remains week, he is accepted at [facility] in [place] with discharge plans tomorrow for rehabilit ation [...] discharge plans to [facility] in [facility] tomorrow. DVT prophylaxis with SCD's only due to risks of bleeding. Discharge plans tomorrow to [facility] in [place], [place] for rehabi litation. Called his daughter Ms. Huerta and left a message with updated information at phone number [phone]. Jerry Chino MD 12/30/2019 tHolden bui PA - 12/30/2019 12:35 PM PDTFormatting of this note might be different from the [facility] Service: Gastroenterology Consult Progress Note Hospital Day: [...] motor deficits. PSYCHIATRIC: Appropriate, affect appears normal [facility] Gastroenterology Patient Name: Andres Guzmán Procedure [...] physician, the nurse, the anesthesiologist and the training technician in the pre-procedure area in the [...] successful. Thermal coagulation with Gold probe 7 Salvadorean x 5 pulses was successful with hemostasis. [...] 12/29/2019 8:36 AM Number of Addenda: 0 [facility] DATA Lab Results Component Value Date [...] ll with any questions. Florina Cantu PA-C [facility] Gastroenterology 12/30/2019 Associated attestation - Lamont Hernandez MD - 12/31/2019 2:17 PM [id number] male with GI bleeding due to duodenal ulcer with visible vessel. The ulcer and visible vessel were tr eated with injection and gold probe thermal coagulation. The patient was seen and examined by me personally. The case was discussed with the physician's title assistant and I agree with the assessment [...] BUNCREARATIO 23 12/30/2019 PTH 72.57 (A) 04/01/2019 [id number] 25.2 (L) 12/27/2019 CALCIUM 8.6 12/30/2019 PHOS [...] been following up with [facility]INA mena in [place]. That had improved with nonoliguric state but now seems to have leveled off at around 3 and this may be reflection of unrecovered acute kidney injury and a higher baseline creatinine. At this time there is no clinical uremia, refractory volume overload, refractory acidosis, refractory hyperkalemia and no urgent indication of starting DOCTOR OF OSTEOPATHY. Neither is there an indication for diagnostic [...] Incentive spirometry. Transfuse Prn. No indication for DOCTOR OF OSTEOPATHY for now. Await renal recovery. I discussed [...] was completed later after rounds. Dictation software, [employer], was used which may contain error for [...] but not limited to potential need for DOCTOR OF OSTEOPATHY . This is a patient with multiple [...] BUNCREARATIO 30 12/29/2019 PTH 72.57 (A) 04/01/2019 [id number] 25.2 (L) 12/27/2019 CALCIUM 8.7 12/29/2019 PHOS [...] been following up with [facility] mena in [place]. That seems to be improving with nonoliguric state and small reduction in creatinine. At this time there is no clinical uremia, refractory volume overload, refractory acidosis, refractory hyperkalemia and no urgent indication of starting DOCTOR OF OSTEOPATHY. Neither is there an indication for diagnostic [...] Incentive spirometry. Transfuse Prn. No indication for DOCTOR OF OSTEOPATHY for now. Await renal recovery. I discussed [...] was completed later after rounds. Dictation software, [employer], was used which may contain error for [...] but not limited to potential need for DOCTOR OF OSTEOPATHY . acetaminophen 1,000 mg Oral 3 times [...] who was admitted as a transfer from [facility] due t o a mechanical fall [...] finding placement and he was accepted by [facility] bed [facility] in [place], [place] for rehabilitation purposes. Hospita l stay [...] but needs rehabilitation, he is accepted by [facility] in [place], [place] with discharge plans early next weeks [...] another 1 to 2 to SNF in [place], [place] if remains stable and improve d. Called his daughter Ms. Huerta and updated her about plans at phone number [phone]. Jerry Chino MD 12/29/2019 acon, Norma Kilpatrick [...] BUNCREARATIO 28 12/28/2019 PTH 72.57 (A) 04/01/2019 [id number] 25.2 (L) 12/27/2019 CALCIUM 8.5 12/28/2019 PHOS [...] been following up with EN[facility]INA mena in [place]. That seems to be improving with nonoliguric state and small reduction in creatinine. At this time there is no clinical uremia, refractory volume overload, refractory acidosis, refractory hyperkalemia and no urgent indication of starting DOCTOR OF OSTEOPATHY. Neither is there an indication for diagnostic [...] Incentive spirometry. Transfuse Prn. No indication for DOCTOR OF OSTEOPATHY for now. Await renal recovery. I discussed [...] was completed later after rounds. Dictation software, [employer], was used which may contain error for [...] but not limited to potential need for DOCTOR OF OSTEOPATHY . acetaminophen 1,000 mg Oral 3 times [...] dinner dextrose 10% pantoprazole 8 mg/hr (12/28/19 1585) orter, DALILA Grant - 12/28/2019 10:49 AM PDT [facility] Service: Orthopedic Surgery Progress Note Hospital [...] DALILA Peralta has created this entry using Scratch Hard Recognition [employer] e and [employer] macros. The entry has been reviewed and [...] who was admitted as a transfer from [facility] due t o a mechanical fall [...] finding placement and he was accepted by [facility] bed [facility] in [place], [place] for rehabilitation purposes. Hospita l stay [...] making slow progress, he is accepted by [facility] in [place], [place] with discharge plans possib ly early [...] 1 to 2 to a SNF in [place], [place] when renal functions are st able and cleared by Nephrology services. Also called his daughter Ms. Huerta and updated her a bout plans at phone number [phone]. Jerry Chino MD 12/28/2019 Ghazal Ferrer COTA [...] been following up with EN[facility]INA mena in [place]. That seems to be improving with nonoliguric state and small reduction in creatinine. At this time there is no clinical uremia, refractory volume overload, refractory acidosis, refractory hyperkalemia and no urgent indication of starting DOCTOR OF OSTEOPATHY. Neither is there an indication for diagnostic [...] Incentive spirometry. Transfuse Prn. No indication for DOCTOR OF OSTEOPATHY for now. Await renal recovery. I discussed [...] but not limited to potential need for DOCTOR OF OSTEOPATHY . acetaminophen 1,000 mg Oral 3 times [...] Net -400 ml . Treatment plan: per crab butcher; slowly improving. *Blood pressure: labile; See VS [...] disorder: elevated PTH and phosphorus. Treatment per crab butcher (see thei r note). Subjective No chest [...] who was admitted as a transfer from [facility] due t o a mechanical fall [...] trength and mobility. He is accepted by [facility] in [place], [place] and discharge is delayed due to [...] to 3 days to a SNF in [place], [place] when renal functions a re stable and cleared by Nephrology services. Jerry Chino MD 12/27/2019 Linda Montalvo RN - 12/26/2019 5:09 PM PDT [facility] Service: Wound Care Consult Note Hospital [...] questions. Linda Cedeno RN 17:16 [place] [facility] - 12/26/2019 12:55 PM PDTFormatting of this note might be different from the jayme lClaudy ORTHOPEDIC SURGERY PROGRESS NOTE Patient Name: Andres Gzumán Patient : 1930 Gender: male Date of [...] who was admitted as a transfer from [facility] due t o a mechanical fall [...] Facilty-Administered PRN Medications Ordered in [facility] Medication Dose Route Frequency Provider Last Rate [...] placement is recommended. 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 Huerta and the at phone number [phone] Code Status: Full Code Regino Greene MD [...] lab follow-up and treatment per hospitalist and crab butcher. *Blood pressure: hypotensive; See VS for BP trending. Treatment plan: treatment per hospit alist and crab butcher *Hospital acquired pneumonia - on IV Zosyn, [...] Dr. Huerta and the at phone number [phone] Code Status: Full Code Regino Greene MD [...] any conversation with family members today. Inpatient vocational rehab consultant. Code Status: Full Code Regino Greene MD 12/23/2019 10:03 PM [place] [facility] - 12/23/2019 12:27 PM PDT . [...] GAMMA NAIL; Surgeon: Melquiades Baez DO; Location: [facility] MAIN OR OTHER SURGICAL HISTORY CATARACT EXTRACTION [...] Electronically Signed by: Lamont Hernandez MD 12/29/2019 [facility] Portions of this chart may have been created with [employer] voice recognition software. Occasi onal wrong-word or sound-alike substitutions may have occurred due to the inherent castañeda itations of voice recognition software. Please read the chart carefully and recognize, using context, where these substitutions have occurred Julián Urbina MD - 12/21/2019 7:38 PM PDTFormatting of this note m ight be different from the original. [facility] Service: Hospitalist History and Physical Date of Admission: Dec 21 2019 Requesting Physician: [facility] emergency Department Reason for Admission: Right comminuted intertrochanteric fracture of the hip CHIEF COMPLAINT: Mechanical fall tripped over side curb landed on the right hip area right hip pain today HISTORY OF PRESENT ILLNESS The patient is a 89 y.o. male Transfer from [facility] after fall with right hip fracture with multiple comor bidities being on Eliquis as well requested for higher level of care to transfer to [facility] wit h orthopedic 89 years old gentleman fall at this morning mechanical fall tripped on the curb and result ed in right hip pain [facility] visited x-ray found to have a [...] and LFT Orthopedic on-call was consulted from [facility] and requested to transfer for higher level of care At [facility] with multiple comorbidities REVIEW OF SYSTEMS 12 [...] transfer lab WBC 5.9 hb10.2 hct 30.5 tje272 potassium 5.1 Bun 85 cre 2.6 Co2-24 [...] as per stated reason Chronic A. fib [id number]- VASC score is 6- Hold Eliquis for [...] Old records reviewed on EMR. Dictation software, [employer], used which may contain error for similar sounding words even af ter review. Personal communication requested for any clarification. Disposition: inpatient Code Status: FULL CODE Primary Care Physician: MD Julián Nobles MD 12/21/2019 documented in thi s encounter Consult Notes Lamont Hernandez MD - 12/29/2019 10:26 AM PDT Gastroenterology Consultation: [facility] 12/29/2019 Andres Godinezdemetrioprem 89 y.o. [id number] History of present illness: Gastroenterology consultation is requested for evaluation of GI bleeding with melena. This is an 89-year-old male with multiple medical problems and a history of hypertension, d iabetes, CKD stage III who was transferred from [facility] due to a fall and he sustain [...] GAMMA NAIL; Surgeon: Melquiades Baez DO; Location: [facility] MAIN OR OTHER SURGICAL HISTORY CATARACT EXTRACTION [...] this chart may have been created with [employer] voice recognition software. Occasi onal wrong-word or sound-alike substitutions may have occurred due to the inherent castañeda itations of voice recognition software. Please read the chart carefully and recognize, using context, where these substitutions have occurred Hayley Peres MD - 12/25/2019 8:46 PM PDT Consulted by [facility] Problem List: Patient Active [...] III with baseline creatinine 1.7 admitted to [facility] on December 20 after a mechanical fall that led to right hip fracture. The patient was transferr ed from [facility] for surgery. The patient did have ORIF [...] Tristan Gage at the nephrology clinic in [place]. The patien t is poor historian and does not recall seeing a crab butcher in the past. He also not awar [...] Order(s): IP CONSULT TO WOUND OSTOMY NURSE [facility] Service: Wound Care Consult Note Hospital [...] Elizabeth MD - 12/24/2019 11:33 AM PDT [facility] Service: Physicial Medicine & Rehab Consultation [...] diabetes, and cirrhosis He was transferred to [facility], and is now s/p ORIF with [...] GAMMA NAIL; Surgeon: Melquiades Baez DO; Location: [facility] MAIN OR OTHER SURGICAL HISTORY CATARACT EXTRACTION [...] should consist SNF placement closer to home ([place]). Code Status: Full Code Wing Marie Reed MD 12/24/2019 Melquiades Gill, - 12/22/2019 7:50 AM PDTAssociated Order(s): PROVIDER TO PROVIDER CONSULT [facility] Orthopaedic and Sports Medicine Service: [...] hip f racture. He was transferred to [facility] for concerns with other comor bidities. [...] surgery. He will be taken for a [facility] hip cephalo-medullary nail.The risks and [...] limb(s)): [x] OT Evaluation & Treat [] BANKRUPTCY MANAGER Evaluation Treat Wound/Skin Care: [] Follow current recommendations of the wound team for treatment. [] Wound Vac management per nursing protocol. Labs/Imaging: [] PT/INR: Frequency per SNF provider Goal INR: [] Fingerstick glucose check before meals and bedtime and PRN [] Labs: Follow up: Melquiades Baez DO [address] [place] [phone] In 2 weeks For post op care Barbara Gilman MD [address] [place] [address] DR Ledy Villafana [place] [phone] In 1 week I have advised this [...] Additional Orders/Instructions: Physician's signature: 01/01/2020 10:59 AM [facility] USE ONLY: [] Admitting [...] ate of Pt Next Steps: d/c to [facility] Community Support Services Current Outpt/Agency/Support Groups: none Community Agency Name: none Other Resources: Discharge Transportation Transportation Needs: agency transportation Notes: Pt on course to discharge to [facility] tomorrow. Idalia discusse d with [facility] team and they are accepting Pt tomorrow if Pt is medically ready. Cm will follow for d/c needs that arise. Electronically signed: Ja Marcus RN 12/31/2019 3:54 PM lan of Care - Andrez Llamas, WINDLACE MACHINE OPERATOR - 12/31/2019 2:04 PM PDT Physical Therapy [...] Value LTG Status continued at 12/30/2019804 LTG [place] Level supervised at 12/30/2019804 LTG Assistive Device none at 12/30/2019 08 All Transfers Goal Most Recent Value LTG Status new at 12/30/2019804 LTG [place] Level minimum assist (75% patient effort) at 12/30/2019804 LTG Assistive Device 2 wheeled walker (FWW) at 12/30/2019804 Gait Goal Most Recent Value LTG Status new at 12/30/2019804 LTG [place] Level minimum assist (75% patient effort) at [...] uses call light appropriately lan of [facility] - Torie Hamlin RN - 12/31/2019 3:02 [...] r sha complete. la n of [facility] - Torie Bryant RN - 12/30/2019 10:03 PM PDT Problem: Adult Inpatient Plan of Care Goal: Plan of Care Review Outcome: Ongoing, progressing Goal: Readiness for Transition of Care Outcome: Ongoing, progressing Plan of care reviewed with patient who verbalizes agreement with no voiced concerns. Aware of plan for discharge to [facility] tomorrow and has no concerns regarding [...] Bed Mobility Sit to Supine, Level of [place]: moderate assist (50% patient effort) Safety Issues: decreased use of legs for bridging/pushing Impairments: strength decreased Transfers Chair-Bed, Level of [place]: moderate assist (50% patient effort) Zdb-Ovyko-Aid, Assistive Device: gait belt Sit-Stand, Level of [place]: moderate assist (50% patient effort) Stand-Sit, Level of [place]: moderate assist (50% patient effort) Ucc-Obpxb-Dya, Assistive Device: gait belt Safety Issues: balance decreased during turns, step length decreased Impairments: strength decreased Goals Reflects last filed data and may be from multiple contributors. All Bed Mobility Goal Most Recent Value LTG Status continued at 12/30/2019 08 LTG [place] Level supervised at 12/30/2019 08 LTG Assistive Device none at 12/30/2019 08 All Transfers Goal Most Recent Value LTG Status new at 12/30/2019 08 LTG [place] Level minimum assist (75% patient effort) at 12/30/2019 0805 LTG Assistive Device 2 wheeled walker (FWW) at 12/30/2019 0805 Gait Goal Most Recent Value LTG Status new at 12/30/2019 0805 LTG [place] Level minimum assist (75% patient effort) at [...] Bed in low position, gait belt available, weed science research technician socks on. Problem: Skin Injury Risk Increased [...] (Range of Motion), stair training, strengthening, stretching, st helenian ball techniques, wheelchair management/propulsio n training Recommended [...] Documentation: sit to/from stand Sit-Stand, Level of [place]: moderate assist (50% patient effort) Stand-Sit, Level of [place]: moderate assist (50% patient effort) Gdm-Sejgm-Kah, Assistive Device: other (see comments)(platform walker ) Maintain Weight Bearing Status: able to maintain weight bearing status Safety Issues: balance decreased during turns Impairments: pain, strength decreased, impaired balance Gait Gait Comments: ambulated with shuffled steps and decreased quita Level of [place]: moderate assist (50% patient effort) Assistive Device: [...] Value LTG Status continued at 12/30/2019804 LTG [place] Level supervised at 12/30/2019804 LTG Assistive Device none at 12/30/2019 08 All Transfers Goal Most Recent Value LTG Status new at 12/30/2019804 LTG [place] Level minimum assist (75% patient effort) at 12/30/2019804 LTG Assistive Device 2 wheeled walker (FWW) at 12/30/2019804 Gait Goal Most Recent Value LTG Status new at 12/30/2019804 LTG [place] Level minimum assist (75% patient effort) at [...] Bed Mobility Supine to Sit, Level of [place]: moderate assist (50% patient effort) Sit to Supine, Level of [place]: moderate assist (50% patient effort) Safety Issues: decreased use of legs for bridging/pushing Impairments: strength decreased Transfers Sit-Stand, Level of [place]: moderate assist (50% patient effort) Stand-Sit, Level of [place]: moderate assist (50% patient effort) Ccg-Mtsql-Wht, Assistive Device: other (see comments)(UP walker) Safety Issues: balance decreased during turns, step length decreased Impairments: strength decreased Gait Level of [place]: moderate assist (50% patient effort) Assistive Device: [...] LTG Status new at 12/23/2019 1600 LTG [place] Level supervised at 12/23/2019 1600 LTG Assistive Device none at 12/23/2019 1600 All Transfers Goal Most Recent Value LTG Status new at 12/23/2019 1600 LTG [place] Level modified independent at 12/23/2019 1600 LTG Assistive Device 2 wheeled walker (FWW) at 12/23/2019 1600 Gait Goal Most Recent Value LTG Status new at 12/23/2019 1600 LTG [place] Level stand by assist at 12/23/2019 1600 [...] Bed Mobility Supine to Sit, Level of [place]: moderate assist (50% patient effort) Safety Issues: decreased use of legs for bridging/pushing Impairments: strength decreased Transfers Sit-Stand, Level of [place]: moderate assist (50% patient effort) Stand-Sit, Level of [place]: moderate assist (50% patient effort) Lav-Iyvrs-Wvi, Assistive Device: other (see comments)(UP walker) Safety Issues: balance decreased during turns, step length decreased Impairments: strength decreased Exercises Bed exercises: ankle pumps, quad sets, heel slides, hip abduction/adduction, glut sets Goals Reflects last filed data and may be from multiple contributors. All Bed Mobility Goal Most Recent Value LTG Status new at 12/23/2019 1600 LTG [place] Level supervised at 12/23/2019 1600 LTG Assistive Device none at 12/23/2019 1600 All Transfers Goal Most Recent Value LTG Status new at 12/23/2019 1600 LTG [place] Level modified independent at 12/23/2019 1600 LTG Assistive Device 2 wheeled walker (FWW) at 12/23/2019 1600 Gait Goal Most Recent Value LTG Status new at 12/23/2019 1600 LTG [place] Level stand by assist at 12/23/2019 1600 [...] handled ghada e horn, long handled sponge, patient registration rep, sock aide Barriers to community-based discharge: Level [...] x1, rest break inbetween set d/t fatigue. [place] for proper tech during ex able to continue seq uence intitially however would require cueing/assist later on in reps. Goals Reflects last filed data and may be from multiple contributors. LB Dressing Goal Most Recent Value LTG Status new at 12/24/2019 0953 LTG [place] Level moderate assist (50% patient effort), verbal cues required at 12/23 0953 LTG Adaptive Equipment patient registration rep, shoe horn, long handled, sock-aid [AE as needed] at 2019 0953 Toilet Transfer Goal Most Recent Value LTG Status new at 12/24/2019 0953 LTG [place] Level minimum assist (75% patient effort), verbal [...] OTR/L. lan of Care - Andrez Dominguez, WINDLACE MACHINE OPERATOR - 12/26/2019 1:46 PM PDTFormatting of this [...] Bed Mobility Supine to Sit, Level of [place]: moderate assist (50% patient effort) Sit to Supine, Level of [place]: moderate assist (50% patient effort) Safety Issues: decreased use of legs for bridging/pushing Impairments: strength decreased Transfers Sit-Stand, Level of [place]: moderate assist (50% patient effort) Stand-Sit, Level of [place]: moderate assist (50% patient effort) Kij-Rwkof-Xoi, Assistive Device: other (see comments)(Up walker) Safety Issues: balance decreased during turns, step length decreased Impairments: strength decreased Gait Level of [place]: moderate assist (50% patient effort) Assistive Device: [...] LTG Status new at 12/23/2019 1600 LTG [place] supervised at 12/23/2019 1600 LTG Assistive Device none at 12/23/2019 1600 All Transfers Goal Most Recent Value LTG Status new at 12/23/2019 1600 LTG [place] Level modified independent at 12/23/2019 1600 LTG Assistive Device 2 wheeled walker (FWW) at 12/23/2019 1600 Gait Goal Most Recent Value LTG Status new at 12/23/2019 1600 LTG [place] Level stand by assist at 12/23/2019 1600 [...] Bed Mobility Supine to Sit, Level of [place]: moderate assist (50% patient effort) Safety Issues: decreased use of legs for bridging/pushing Impairments: strength decreased Transfers Sit-Stand, Level of [place]: moderate assist (50% patient effort) Stand-Sit, Level of [place]: moderate assist (50% patient effort) Kld-Dfika-Vtt, Assistive Device: other (see comments)(Up walker) Safety Issues: balance decreased during turns, step length decreased Impairments: strength decreased Gait Level of [place]: moderate assist (50% patient effort) Assistive Device: [...] LTG Status new at 12/23/2019 1600 LTG [place] Level supervised at 12/23/2019 1600 LTG Assistive Device none at 12/23/2019 1600 All Transfers Goal Most Recent Value LTG Status new at 12/23/2019 1600 LTG [place] modified independent at 12/23/2019 1600 LTG Assistive Device 2 wheeled walker (FWW) at 12/23/2019 1600 Gait Goal Most Recent Value LTG Status new at 12/23/2019 1600 LTG [place] Level stand by assist at 12/23/2019 1600 [...] morning rounds Next Steps: d/c to [facility] Swing Bed Community Support Services Current Outpt/Agency/Support Groups: none Community Agency Name: none Other Resources: Discharge Transportation Transportation Needs: agency transportation Notes: Pt not medically ready for discharge. Cm called Idalia NELSON at [facility] and updat ed her on Pt progress. Pt may be ready for d/c Monday. Cm will continue to follow for placem ent needs. Electronically signed: Ja Marcus RN 12/26/2019 11:46 AM lan of Audra Pickard, Nursing [facility] t - 12/26/2019 [...] Bed Mobility Sit to Supine, Level of [place]: maximal assist (25% patient effort), verbal cues requ ired Safety Issues: decreased use of legs for bridging/pushing, decreased use of arms for pushin g/pulling Impairments: strength decreased, pain, impaired balance Transfers Sit-Stand, Level of [place]: moderate assist (50% patient effort), verbal cues require d Stand-Sit, Level of [place]: moderate assist (50% patient effort), verbal cues require d Khs-Dupjw-Jws, Assistive Device: 2 wheeled walker (FWW), gait belt Safety Issues: sequencing ability decreased, balance decreased during turns Gait Level of [place]: moderate assist (50% patient effort) Assistive Device: [...] LTG Status new at 12/23/2019 1600 LTG [place] Level supervised at 12/23/2019 1600 LTG Assistive Device none at 12/23/2019 1600 All Transfers Goal Most Recent Value LTG Status new at 12/23/2019 1600 LTG [place] Level modified independent at 12/23/2019 1600 LTG Assistive Device 2 wheeled walker (FWW) at 12/23/2019 1600 Gait Goal Most Recent Value LTG Status new at 12/23/2019 1600 LTG [place] Level stand by assist at 12/23/2019 1600 [...] Discharge: Attended rounds Next Steps: d/c to [facility] Community Support Services Current Outpt/Agency/Support Groups: none Community Agency Name: none Other Resources: Discharge Transportation Transportation Needs: agency transportation Notes: Pt not medically ready for discharge. Cm received call from [facility] from [facility]. Pt has been accepted but [...] (Range of Motion), stair training, strengthening, stretching, st helenian ball techniques, w heelchair management/propulsion training Recommended [...] HOB elevated Supine to Sit, Level of [place]: moderate assist (50% patient effort), verbal cues req uired Safety Issues: decreased use of legs for bridging/pushing, decreased use of arms for pushin g/pulling Impairments: strength decreased, pain, impaired balance Transfers Additional Documentation: sit to/from stand Chair-Bed, Level of [place]: moderate assist (50% patient effort), verbal cues require d Pyx-Gqmgs-Osm, Assistive Device: 2 wheeled walker (FWW) Sit-Stand, Level of [place]: moderate assist (50% patient effort), verbal cues require d Stand-Sit, Level of [place]: moderate assist (50% patient effort), verbal cues require d Wrd-Dehmv-Hac, Assistive Device: 2 wheeled walker (FWW), gait belt Maintain Weight Bearing Status: able to maintain weight bearing status Safety Issues: sequencing ability decreased, balance decreased during turns Impairments: impaired balance, coordination impaired, pain, decreased flexibility Gait Gait Comments: 4 steps to chair Level of [place]: moderate assist (50% patient effort) Assistive Device: [...] LTG Status new at 12/23/2019 1600 LTG [place] Level supervised at 12/23/2019 1600 LTG Assistive Device none at 12/23/2019 1600 All Transfers Goal Most Recent Value LTG Status new at 12/23/2019 1600 LTG [place] Level modified independent at 12/23/2019 1600 LTG Assistive Device 2 wheeled walker (FWW) at 12/23/2019 1600 Gait Goal Most Recent Value LTG Status new at 12/23/2019 1600 LTG [place] Level stand by assist at 12/23/2019 1600 [...] long handled shoe horn, long handled sponge, patient registration rep, sock aide(BSC (?)) Barriers to community-based discharge [...] seated in the recliner Grooming, Level of [place]: supervised Assistive Device: none Grooming Assess/Train, Position: sitting Bed Mobility Additional Documentation: supine to/from sit Assistive Device: HOB elevated, bed rails Sit to Supine, Level of [place]: maximal assist (25% patient effort), verbal cues [...] stand, bed to/from chair Chair-Bed, Level of [place]: moderate assist (50% patient effort), verbal cues require d Vfd-Vdncl-Wof, Assistive Device: gait belt Sit-Stand, Level of [place]: moderate assist (50% patient effort), verbal cues require d Stand-Sit, Level of [place]: moderate assist (50% patient effort), verbal cues require d Tfp-Cwctc-Uuh, Assistive Device: 2 wheeled walker (FWW), gait [...] LTG Status new at 12/24/2019 0953 LTG [place] Level moderate assist (50% patient effort), verbal cues required at 12/23 0953 LTG Adaptive Equipment patient registration rep, shoe horn, long handled, sock-aid [AE as needed] at 2019 0953 Toilet Transfer Goal Most Recent Value LTG Status new at 12/24/2019 0953 LTG [place] Level minimum assist (75% patient effort), verbal [...] HOB elevated Supine to Sit, Level of [place]: moderate assist (50% patient effort), verbal cues req uired Safety Issues: decreased use of arms for pushing/pulling, decreased use of legs for bridgin g/pushing Impairments: decreased flexibility, pain, impaired balance Transfers Additional Documentation: sit to/from stand Sit-Stand, Level of [place]: minimal assist (75% patient effort) Stand-Sit, Level of [place]: minimal assist (75% patient effort) Ucr-Yzmpl-Ddg, Assistive Device: 2 wheeled walker (FWW) Maintain Weight Bearing Status: able to maintain weight bearing status Safety Issues: sequencing ability decreased Impairments: decreased flexibility, impaired balance, pain Gait Gait Comments: side stepping to recliner Level of [place]: minimal assist (75% patient effort) Assistive Device: [...] LTG Status new at 12/23/2019 1600 LTG [place] Level supervised at 12/23/2019 1600 LTG Assistive Device none at 12/23/2019 1600 All Transfers Goal Most Recent Value LTG Status new at 12/23/2019 1600 LTG [place] Level modified independent at 12/23/2019 1600 LTG Assistive Device 2 wheeled walker (FWW) at 12/23/2019 1600 Gait Goal Most Recent Value LTG Status new at 12/23/2019 1600 LTG [place] Level stand by assist at 12/23/2019 1600 [...] Medical Equipment Provider: Pharmacy/Medication Needs: other (see comments)([facility] in [place], [place]) Transportation Needs: agency transportation Initial Plan [...] that he would like to go [facility] Swi ng bed if needed before going home. Cm called [facility] and received contact info - Idalia Garduno [phone]. Cm sent referral to [facility]. Pt stated that Deanna (daughter) edgardo harmon be available to assist at home once home. Cm will follow for placement needs. Electronically signed: Ja aMrcus RN 12/23/2019 4:24 PM lan of Care [...] (Range of Motion), stair training, strengthening, stretching, st helenian ball techniques, wheelchair management/propulsio n training Recommended [...] HOB elevated Supine to Sit, Level of [place]: moderate assist (50% patient effort) Sit to Supine, Level of [place]: maximal assist (25% patient effort) Safety Issues: decreased use of arms for pushing/pulling, decreased use of legs for bridgin g/pushing Impairments: decreased flexibility, impaired balance, pain Transfers Additional Documentation: sit to/from stand Sit-Stand, Level of [place]: minimal assist (75% patient effort) Stand-Sit, Level of [place]: minimal assist (75% patient effort) Ioe-Nsood-Jqh, Assistive Device: 2 wheeled walker (FWW) Maintain [...] LTG Status new at 12/23/2019 1600 LTG [place] Level supervised at 12/23/2019 1600 LTG Assistive Device none at 12/23/2019 1600 All Transfers Goal Most Recent Value LTG Status new at 12/23/2019 1600 LTG [place] Level modified independent at 12/23/2019 1600 LTG Assistive Device 2 wheeled walker (FWW) at 12/23/2019 1600 Gait Goal Most Recent Value LTG Status new at 12/23/2019 1600 LTG [place] Level stand by assist at 12/23/2019 1600 LTG Assistive Device 2 wheeled walker (FWW) at 12/23/2019 1600 LTG Distance (feet) 50 at 12/23/2019 1600 [facility] - Chasity Alston RN - 12/23/2019 5:32 [...] Melquiades Baez DO - 12/22/2019 10:34 AM [facility] Orthop aedic and Sports Medicine Service: [...] by: Melquiades Baez DO, 12/22/2019 10:35 AM [facility] lan of Care - Lies Chambers RN - 12/22/2019 12:00 AM PDTPain [...] 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 EKG and Ches [...] day shift and every two hours on overnight houseperson to monitor and medicate appropriately. 2. Staff [...] | | | | | | [place] [address] | | | | | | [phone] | | | | | | | | +--------+---------+ + + + | 04/21/ | Office | Nephrology | Isiah Jade MD | | | 2019 | Visit | | [address] [facility] | | | | | | [address] | | | | | | [address] | | | | | | | | +--------+---------+ + + + | 05/07/ | Office | Cardiology | Charlee Oswald | | | 2019 | Visit | | [address] | | | | | | [address] | | | | | | [place] [address] | | | | | | [phone] | | | | | | | [...] + +--------+ + + + | *TERMED* LA UPPER GI | Routin | 12/29/2019 | [...] + +--------+ + + + | NATHANAEL HTURSTON, | Routin | 12/22/2019 | | Results [...] | | | POC | performed at [facility];[address] | | LABORATORY | | | | [address];[place], [place] | | | | | | [address] | | | | + + + + + + + + | Specimen | + + | | + + + + + + + | Performing | Address | City/State/Zipcode | Phone Number | | Organization | | | | + + + + + | [facility] | [address] | [place] [address] | [phone] | + + + + + POC [...] | | | POC | performed at [facility];[address] | | LABORATORY | | | | [address];[place] | | | | | | [address] | | | | + + + + + + + + | Specimen | + + | | + + + + + + + | Performing | Address | City/State/Zipcode | Phone Number | | Organization | | | | + + + + + | [facility] | [address] | [place] [address] | [phone] | + + + + + Basic [...] | | | | | | [facility] traceable | | | | | | equation.Testing | | | | | | performed at [facility];[address] | | | | | | [facility];[place], [place] | | | | | | [address] | | | | + + + + + + + + | Specimen | + + | Blood | + + + + + + + | Performing | Address | City/State/Zipcode | Phone Number | | Organization | | | | + + + + + | [facility] | [address] | [place] [address] | [phone] | + + + + + CBC [...] | | | Absolute | performed at [facility];[address] | K/uL | LABORATORY | | | | [address];[place] | | | | | | [address] | | | | + + + + + + + + | Specimen | + + | Blood | + + + + + + + | Performing | Address | City/State/Zipcode | Phone Number | | Organization | | | | + + + + + | [facility] | [address] | [place] [address] | [phone] | + + + + + POC [...] | | | POC | performed at [facility];[address] | | LABORATORY | | | | [address];[place] | | | | | | [address] | | | | + + + + + + + + | Specimen | + + | | + + + + + + + | Performing | Address | City/State/Zipcode | Phone Number | | Organization | | | | + + + + + | [facility] | [address] | [place] [address] | [phone] | + + + + + POC [...] | | | POC | performed at [facility];[address] | | LABORATORY | | | | [address];[place], [place] | | | | | | [address] | | | | + + + + + + + + | Specimen | + + | | + + + + + + + | Performing | Address | City/State/Zipcode | Phone Number | | Organization | | | | + + + + + | [facility] | [address] [facility] | [place] [address] | [phone] | + + + + + POC [...] | | | POC | performed at [facility];[address] | | LABORATORY | | | | [address];[place] | | | | | | [address] | | | | + + + + + + + + | Specimen | + + | | + + + + + + + | Performing | Address | City/State/Zipcode | Phone Number | | Organization | | | | + + + + + | [facility] | [address] | [place] [address] | [phone] | + + + + + POC [...] | | | POC | performed at [facility];[address] | | LABORATORY | | | | [address];[place] | | | | | | [address] | | | | + + + + + + + + | Specimen | + + | | + + + + + + + | Performing | Address | City/State/Zipcode | Phone Number | | Organization | | | | + + + + + | [facility] | [address] | [place] [address] | [phone] | + + + + + Basic [...] 8.5 | 8.5 - 10.5 | [facility] [...] | | | | | | [facility] traceable | | | | | | equation.Testing | | | | | | performed at [facility], [address] | | | | | | [facility], | | | | | | [place] [address] | | | | + + + + + + + + | Specimen | + + | Blood | + + + + + + + | Performing | Address | City/State/Zipcode | Phone Number | | Organization | | | | + + + + + | [facility] | [address] | [place] [address] | [phone] | + + + + + CBC [...] | | | Absolute | performed at [facility], [address] | K/uL | LABORATORY | | | | [address], | | | | | | [place] [address] | | | | + + + + + + + + | Specimen | + + | Blood | + + + + + + + | Performing | Address | City/State/Zipcode | Phone Number | | Organization | | | | + + + + + | [facility] | [address] | [place] [address] | [phone] | + + + + + POC [...] | | | POC | performed at [facility];[address] | | LABORATORY | | | | [address];[place] | | | | | | [address] | | | | + + + + + + + + | Specimen | + + | | + + + + + + + | Performing | Address | City/State/Zipcode | Phone Number | | Organization | | | | + + + + + | [facility] | [address] | [place] [address] | [phone] | + + + + + POC [...] | | | POC | performed at [facility];[address] | | LABORATORY | | | | [address];[place], [place] | | | | | | [address] | | | | + + + + + + + + | Specimen | + + | | + + + + + + + | Performing | Address | City/State/Zipcode | Phone Number | | Organization | | | | + + + + + | [facility] | [address] | [place] [address] | [phone] | + + + + + POC [...] | | | POC | performed at [facility];[address] | | LABORATORY | | | | [address];[place] | | | | | | [address] | | | | + + + + + + + + | Specimen | + + | | + + + + + + + | Performing | Address | City/State/Zipcode | Phone Number | | Organization | | | | + + + + + | [facility] | [address] | [place] [address] | [phone] | + + + + + Basic [...] | | | | | | [facility] traceable | | | | | | equation.Testing | | | | | | performed at [facility];[address] | | | | | | [facility], [place] | | | | | | [address] | | | | + + + + + + + + | Specimen | + + | Blood | + + + + + + + | Performing | Address | City/State/Zipcode | Phone Number | | Organization | | | | + + + + + | [facility] | [address] [facility] | [place] [address] | [phone] | + + + + + POC [...] | | | POC | performed at [facility];[address] | | LABORATORY | | | | [address];[place] | | | | | | [address] | | | | + + + + + + + + | Specimen | + + | | + + + + + + + | Performing | Address | City/State/Zipcode | Phone Number | | Organization | | | | + + + + + | [facility] | [address] | [place] [address] | [phone] | + + + + + CBC [...] | | | Absolute | performed at [facility];[address] | K/uL | LABORATORY | | | | [address];[place] | | | | | | [address] | | | | + + + + + + + + | Specimen | + + | Blood | + + + + + + + | Performing | Address | City/State/Zipcode | Phone Number | | Organization | | | | + + + + + | [facility] | [address] | [place] [address] | [phone] | + + + + + POC [...] | | | POC | performed at [facility];[address] | | LABORATORY | | | | [address];[place] | | | | | | [address] | | | | + + + + + + + + | Specimen | + + | | + + + + + + + | Performing | Address | City/State/Zipcode | Phone Number | | Organization | | | | + + + + + | [facility] | [address] | [place] [address] | [phone] | + + + + + Hemoglobin [...] HOSPITAL | | | | performed at [facility];[address] | | LABORATORY | | | | [address];[place] | | | | | | [address] | | | | + + + + + + + + | Specimen | + + | Blood | + + + + + + + | Performing | Address | City/State/Zipcode | Phone Number | | Organization | | | | + + + + + | [facility] | [address] | [place] [address] | [phone] | + + + + + POC [...] | | | POC | performed at [facility];[address] | | LABORATORY | | | | [address];[place], [place] | | | | | | [address] | | | | + + + + + + + + | Specimen | + + | | + + + + + + + | Performing | Address | City/State/Zipcode | Phone Number | | Organization | | | | + + + + + | [facility] | [address] | [place] [address] | [phone] | + + + + + Hemoglobin [...] CORDELL | | | | performed at [facility];[address] | | LABORATORY | | | | [address];[place], [place] | | | | | | [address] | | | | + + + + + + + + | Specimen | + + | Blood | + + + + + + + | Performing | Address | City/State/Zipcode | Phone Number | | Organization | | | | + + + + + | [facility] | [address] | [place] [address] | [phone] | + + + + + POC [...] | | | POC | performed at [facility];[address] | | LABORATORY | | | | [address];[place], [place] | | | | | | [address] | | | | + + + + + + + + | Specimen | + + | | + + + + + + + | Performing | Address | City/State/Zipcode | Phone Number | | Organization | | | | + + + + + | [facility] | [address] | [place] [address] | [phone] | + + + + + POC [...] | | | POC | performed at [facility];[address] | | LABORATORY | | | | [address];[place] | | | | | | [address] | | | | + + + + + + + + | Specimen | + + | | + + + + + + + | Performing | Address | City/State/Zipcode | Phone Number | | Organization | | | | + + + + + | [facility] | [address] | [place] [address] | [phone] | + + + + + Surgical [...] | | technical component was performed by [employer], [address] [place] [address] | | | [place] [address] (Stock Lifter: Padmini Sellers MD; CLIA# | | | [id number]). Professional interpretation was performed [facility] | | | [employer], [address], | | | [place] [address] (Stock Lifter: Oscar Maynard M.D.; CLIA#: | | | [id number]). Diagnostician: Padmini Sellers | | | MDPathologistElectronically [...] | |The technical component was performed by [facility], [address] [place] [address] (Stock Lifter: Padmini Sellers MD; CLIA# [id number]). Professional interpretation was performed by | | |[facility], [address] [address] (Stock Lifter: Oscar Maynard M.D.; CLIA#: [id number]). | | | | | |Diagnostician: Padmini [...] Performed At | + + + | [facility] | [facility] | | [facility] | [facility] | | CenterGastroenterology | | | Patient Name: Andres Guzmán | | | Procedure Date: 12/29/2019 8:36 AMMRN: [id number] | | | of : 1930 | [...] the anesthesiologist and the | | | training technician in the pre-procedure area in the [...] | | | with Gold probe 7 Salvadorean x 5 pulses was successful with | [...] | | | AMNumber of Addenda: 0 [facility] | | | - Check hemoglobin q 6 hours for one day. | | | | | | | | |LAMONT HERNANDEZ MD | | |12/29/2019 10:19:54 AM | | |This report has been signed electronically. | | | | | |Note Initiated On: 12/29/2019 8:36 AM | | |Number of Addenda: 0 | | | | | | [facility] | | + + + + [...] [facility] | | | | performed at [facility];[address] | | LABORATORY | | | | [address];[place] | | | | | | [address] [...] HOSPITAL LABORATORY | [address] | [place] [address] | [phone] | + + + + + POC [...] | | | POC | performed at [facility];[address] | | LABORATORY | | | | [address];[place], [place] | | | | | | [address] | | | | + + + + + + + + | Specimen | + + | | + + + + + + + | Performing | Address | City/State/Zipcode | Phone Number | | Organization | | | | + + + + + | [facility] | [address] | [place] [address] | [phone] | + + + + + CBC [...] | | | Absolute | performed at [facility];[address] | K/uL | LABORATORY | | | | [address];[place] | | | | | | [address] | | | | + + + + + + + + | Specimen | + + | Blood | + + + + + + + | Performing | Address | City/State/Zipcode | Phone Number | | Organization | | | | + + + + + | [facility] | [address] | [place] [address] | [phone] | + + + + + Protime [...] | | | | | performed at [facility] | | | | | | [facility];[place], [place] | | | | | | [address] | | | | + + + + + + + + | Specimen | + + | Blood | + + + + + + + | Performing | Address | City/State/Zipcode | Phone Number | | Organization | | | | + + + + + | [facility] | [address] | [place] [address] | [phone] | + + + + + Basic [...] | | | | | performed at [facility];[address] | | | | | | [facility];[place], [place] | | | | | | [address] | | | | + + + + + + + + | Specimen | + + | Blood | + + + + + + + | Performing | Address | City/State/Zipcode | Phone Number | | Organization | | | | + + + + + | [facility] | [address] | [place] [address] | [phone] | + + + + + POC [...] | | | POC | performed at [facility];[address] | | LABORATORY | | | | [address];[place], [place] | | | | | | [address] | | | | + + + + + + + + | Specimen | + + | | + + + + + + + | Performing | Address | City/State/Zipcode | Phone Number | | Organization | | | | + + + + + | [facility] | [address] | [place] [address] | [phone] | + + + + + Hemoglobin [...] [facility] | | | | performed at [facility];[address] | | LABORATORY | | | | [address];[place], [place] | | | | | | [address] | | | | + + + + + + + + | Specimen | + + | Blood | + + + + + + + | Performing | Address | City/State/Zipcode | Phone Number | | Organization | | | | + + + + + | [facility] | [address] | [place] [address] | [phone] | + + + + + POC [...] | | | POC | performed at [facility];[address] | | LABORATORY | | | | [address];[place], [place] | | | | | | [address] | | | | + + + + + + + + | Specimen | + + | | + + + + + + + | Performing | Address | City/State/Zipcode | Phone Number | | Organization | | | | + + + + + | [facility] | [address] | [place] [address] | [phone] | + + + + + Fecal [...] | | LABORATORY | | | | [facility];[address];[place] [address] | | | | + + + [...] [facility] | [address] | [place] [address] | [phone] | + + + + + POC [...] | | | POC | performed at [facility];[address] | | LABORATORY | | | | [address];[place] | | | | | | [address] | | | | + + + + + + + + | Specimen | + + | | + + + + + + + | Performing | Address | City/State/Zipcode | Phone Number | | Organization | | | | + + + + + | [facility] | [address] | [place] [address] | [phone] | + + + + + Hemoglobin [...] [facility] | | | | performed at [facility];[address] | | LABORATORY | | | | [address];[place], [place] | | | | | | [address] | | | | + + + + + + + + | Specimen | + + | Blood | + + + + + + + | Performing | Address | City/State/Zipcode | Phone Number | | Organization | | | | + + + + + | [facility] | [address] | [place] [address] | [phone] | + + + + + POC [...] | | | POC | performed at [facility];[address] | | LABORATORY | | | | [address];[place] | | | | | | [address] | | | | + + + + + + + + | Specimen | + + | | + + + + + + + | Performing | Address | City/State/Zipcode | Phone Number | | Organization | | | | + + + + + | [facility] | [address] | [place] [address] | [phone] | + + + + + POC [...] | | | POC | performed at [facility];[address] | | LABORATORY | | | | [address];[place], [place] | | | | | | [address] | | | | + + + + + + + + | Specimen | + + | | + + + + + + + | Performing | Address | City/State/Zipcode | Phone Number | | Organization | | | | + + + + + | [facility] | [address] | [place] [address] | [phone] | + + + + + CBC [...] | | | Absolute | performed at [facility], [address] | K[address] | LABORATORY | | | | [address], | | | | | | [place] [address] | | | | + + + + + + + + | Specimen | + + | Blood | + + + + + + + | Performing | Address | City/State/Zipcode | Phone Number | | Organization | | | | + + + + + | [facility] | [address] | [place] [address] | [phone] | + + + + + Basic [...] | | | | | performed at [facility], [address] | | | | | | [facility], | | | | | | [place] [address] | | | | + + + + + + + + | Specimen | + + | Blood | + + + + + + + | Performing | Address | City/State/Zipcode | Phone Number | | Organization | | | | + + + + + | [facility] | [address] | [place] [address] | [phone] | + + + + + POC [...] | | | POC | performed at [facility];[address] | | LABORATORY | | | | [address];[place] | | | | | | [address] | | | | + + + + + + + + | Specimen | + + | | + + + + + + + | Performing | Address | City/State/Zipcode | Phone Number | | Organization | | | | + + + + + | [facility] | [address] | [place] [address] | [phone] | + + + + + POC [...] | | | POC | performed at [facility];[address] | | LABORATORY | | | | [address];[place] | | | | | | [address] | | | | + + + + + + + + | Specimen | + + | | + + + + + + + | Performing | Address | City/State/Zipcode | Phone Number | | Organization | | | | + + + + + | [facility] | [address] | [place] [address] | [phone] | + + + + + Red [...] | [facility] | | | COMMENT | [facility];[address] | | LABORATORY | | | | [address];[place] [address] | | | | + + + + + + + + | Specimen | + + | | + + + + + + + | Performing | Address | City/State/Zipcode | Phone Number | | Organization | | | | + + + + + | [facility] | [address] | [place] [address] | [phone] | + + + + + Type [...] + + + | BB BAND | [id number] | | [facility] | | | | | | LABORATORY | | + + + + + + | UNIT # | [id number] | | [facility] | | | | [...] + + + | UNIT # | [id number] | | [facility] | | | | [...] | | | RESULT | performed at [facility];[address] | | LABORATORY | | | | [address];[place] | | | | | | [address] | | | | + + + + + + + + | Specimen | + + | Blood | + + + + + + + | Performing | Address | City/State/Zipcode | Phone Number | | Organization | | | | + + + + + | [facility] | [address] | [place] [address] | [phone] | + + + + + POC [...] | | | POC | performed at [facility];[address] | | LABORATORY | | | | [address];[place] | | | | | | [address] | | | | + + + + + + + + | Specimen | + + | | + + + + + + + | Performing | Address | City/State/Zipcode | Phone Number | | Organization | | | | + + + + + | [facility] | [address] | [place] [address] | [phone] | + + + + + CBC [...] Testing | 0.00 - 0.10 | [facility] | | | Absolute | performed at [facility], [address] | K/uL | LABORATORY | | | | [address], | | | | | | [place] [address] | | | | + + + + + + + + | Specimen | + + | | + + + + + + + | Performing | Address | City/State/Zipcode | Phone Number | | Organization | | | | + + + + + | [facility] | [address] | [place] [address] | [phone] | + + + + + Procalcitonin [...] | | | | | | at [facility];[address] [place] [address] | | | | | | [facility];[place] [address] | | | | + + + + + + + + | Specimen | + + | Blood | + + + + + + + | Performing | Address | City/State/Zipcode | Phone Number | | Organization | | | | + + + + + | [facility] | [address] | [place] [address] | [phone] | + + + + + Basic [...] | | | | | | [facility]D [facility] traceable | | | | | | equation.Testing | | | | | | performed at [facility], [address] | | | | | | [facility], | | | | | | [place] [address] | | | | + + + + + + + + | Specimen | + + | Blood | + + + + + + + | Performing | Address | City/State/Zipcode | Phone Number | | Organization | | | | + + + + + | [facility] | [address] | [place] [address] | [phone] | + + + + + Vitamin [...] | | | | defined by the [place] | | | | | | [facility] and an | | | | | [...] IOM | | | | | | ([place] [facility] [employer]). | | | | | [...] | | | | | performed at [facility], | | | | | | [address], | | | | | | [facility] [address] | | | | + + + + + + + + | Specimen | + + | Blood | + + + + + + + | Performing | Address | City/State/Zipcode | Phone Number | | Organization | | | | + + + + + | [facility] | [address] | [place] [address] | [phone] | + + + + + Potassium (12/27/2019 12:08 AM PDT) + + + + + + | Component | Value | Ref Range | Performed | Pathologist | | | | | At | Signature | + + + + + + | K | 4.0Comment: Testing | 3.5 - 4.9 | [facility] | | | | performed at [facility];[address] | mmol/L | LABORATORY | | | | [address];[place] | | | | | | [address] | | | | + + + + + + + + | Specimen | + + | Blood | + + + + + + + | Performing | Address | City/State/Zipcode | Phone Number | | Organization | | | | + + + + + | [facility] | [address] | [place] [address] | [phone] | + + + + + Magnesium (12/27/2019 12:08 AM PDT) + + + + + + | Component | Value | Ref Range | Performed | Pathologist | | | | | At | Signature | + + + + + + | Magnesium | 2.2Comment: Testing | 1.7 - 2.4 mg/dL | [facility] | | | | performed at [facility];[address] | | LABORATORY | | | | [address];[place], [place] | | | | | | [address] | | | | + + + + + + + + | Specimen | + + | Blood | + + + + + + + | Performing | Address | City/State/Zipcode | Phone Number | | Organization | | | | + + + + + | [facility] | [address] | [place] [address] | [phone] | + + + + + ECG [...] | | | | | YANIV ROONEY ([id number]) | | | | | | on [...] | | | POC | performed at [facility];[address] | | LABORATORY | | | | [address];[place] | | | | | | [address] | | | | + + + + + + + + | Specimen | + + | | + + + + + + + | Performing | Address | City/State/Zipcode | Phone Number | | Organization | | | | + + + + + | [facility] | [address] | [place] [address] | [phone] | + + + + + POC [...] | | | POC | performed at [facility];[address] | | LABORATORY | | | | [address];[place], [place] | | | | | | [address] | | | | + + + + + + + + | Specimen | + + | | + + + + + + + | Performing | Address | City/State/Zipcode | Phone Number | | Organization | | | | + + + + + | [facility] | [address] | [place] [address] | [phone] | + + + + + Complement [...] | | | COMPLEMENT | performed at [facility], | | LABORATORY | | | | [address], | | | | | | [place] [address] | | | | + + + + + + + + | Specimen | + + | | + + + + + + + | Performing | Address | City/State/Zipcode | Phone Number | | Organization | | | | + + + + + | [facility] | [address] | [place] [address] | [phone] | + + + + + Complement [...] | | | COMPLEMENT | performed at [facility], | | LABORATORY | | | | [address], | | | | | | [facility] [address] | | | | + + + + + + + + | Specimen | + + | | + + + + + + + | Performing | Address | City/State/Zipcode | Phone Number | | Organization | | | | + + + + + | [facility] | [address] | [place] [address] | [phone] | + + + + + POC [...] | | | POC | performed at [facility];[address] | | LABORATORY | | | | [address];[place] | | | | | | [address] | | | | + + + + + + + + | Specimen | + + | | + + + + + + + | Performing | Address | City/State/Zipcode | Phone Number | | Organization | | | | + + + + + | [facility] | [address] | [place] [address] | [phone] | + + + + + POC [...] | | | POC | performed at [facility];[address] | | LABORATORY | | | | [address];[place] | | | | | | [address] | | | | + + + + + + + + | Specimen | + + | | + + + + + + + | Performing | Address | City/State/Zipcode | Phone Number | | Organization | | | | + + + + + | [facility] | [address] | [place] [address] | [phone] | + + + + + Parathyroid [...] pg/mL | LABORATORY | | | | [facility];[address];[place] [address] | | | | + + + + + + + + | Specimen | + + | | + + + + + + + | Performing | Address | City/State/Zipcode | Phone Number | | Organization | | | | + + + + + | [facility] | [address] | [place] [address] | [phone] | + + + + + Renal [...] | | | | | performed at [facility], [address] | | | | | | [facility], | | | | | | [place] [address] | | | | + + + + + + + + | Specimen | + + | Blood | + + + + + + + | Performing | Address | City/State/Zipcode | Phone Number | | Organization | | | | + + + + + | [facility] | [address] | [place] [address] | [phone] | + + + + + POC [...] | | | POC | performed at [facility];[address] | | LABORATORY | | | | [address];[place] | | | | | | [address] | | | | + + + + + + + + | Specimen | + + | | + + + + + + + | Performing | Address | City/State/Zipcode | Phone Number | | Organization | | | | + + + + + | [facility] | [address] | [place] [address] | [phone] | + + + + + POC [...] | | | POC | performed at [facility];[address] | | LABORATORY | | | | [address];[place] | | | | | | [address] | | | | + + + + + + + + | Specimen | + + | | + + + + + + + | Performing | Address | City/State/Zipcode | Phone Number | | Organization | | | | + + + + + | [facility] | [address] | [place] [address] | [phone] | + + + + + ECHO [...] | | | POC | performed at [facility];[address] | | LABORATORY | | | | [address];[place], [place] | | | | | | [address] | | | | + + + + + + + + | Specimen | + + | | + + + + + + + | Performing | Address | City/State/Zipcode | Phone Number | | Organization | | | | + + + + + | [facility] | [address] | [place] [address] | [phone] | + + + + + POC [...] | | | POC | performed at [facility];[address] | | LABORATORY | | | | [address];[place] | | | | | | [address] | | | | + + + + + + + + | Specimen | + + | | + + + + + + + | Performing | Address | City/State/Zipcode | Phone Number | | Organization | | | | + + + + + | [facility] | [address] | [place] [address] | [phone] | + + + + + CK Total (12/25/2019 4:25 AM PDT) + + + + + + | Component | Value | Ref Range | Performed | Pathologist | | | | | At | Signature | + + + + + + | CK TOTAL | 104Comment: Testing | 55 - 400 U/L | [facility] | | | | performed at [facility];[address] | | LABORATORY | | | | [address];[place] | | | | | | [address] | | | | + + + + + + + + | Specimen | + + | Blood | + + + + + + + | Performing | Address | City/State/Zipcode | Phone Number | | Organization | | | | + + + + + | [facility] | [address] | [place] [address] | [phone] | + + + + + Renal [...] | | | | | | [facility]D [facility] traceable | | | | | | equation.Testing | | | | | | performed at [facility], [address] | | | | | | [facility], | | | | | | [place] [address] | | | | + + + + + + + + | Specimen | + + | Blood | + + + + + + + | Performing | Address | City/State/Zipcode | Phone Number | | Organization | | | | + + + + + | [facility] | [address] | [place] [address] | [phone] | + + + + + Cytoplasmic [...] | | | | | with both LA-3 and | | | | | | [...] | | | | | [facility] [address] | | | | + + + + + + + + | Specimen | + + | Blood | + + + + + + + | Performing | Address | City/State/Zipcode | Phone Number | | Organization | | | | + + + + + | [facility] | [address] | [place] [address] | [phone] | + + + + + Sedimentation [...] | | | | | [place] [address] | | | | + + + + + + + + | Specimen | + + | Blood | + + + + + + + | Performing | Address | City/State/Zipcode | Phone Number | | Organization | | | | + + + + + | [facility] | [address] | [place] [address] | [phone] | + + + + + Immunoglobulin, Free Light Chain (12/25/2019 4:22 AM PDT) + + + + + + | Component | Value | Ref Range | Performed | Pathologist | | | | | At | Signature | + + + + + + | Union Level Free | 121.2 (H) | 3.3 - [...] + + + + + | Union Level/Lambd | 1.25Comment: Testing | 0.26 - 1.65 | [facility] | | | a Free | performed at [facility] | | LABORATORY | | | Light Chain | [address] | | | | | Ratio | [place] [address] | | | | + + + + + + + + | Specimen | + + | Blood | + + + + + + + | Performing | Address | City/State/Zipcode | Phone Number | | Organization | | | | + + + + + | [facility] | [address] | [place] [address] | [phone] | + + + + + Glomerular [...] | | | | | [facility], [address] [place] [address] | | | | | | [place] | | | | | | [address] | | | | + + + + + + + + | Specimen | + + | Blood | + + + + + + + | Performing | Address | City/State/Zipcode | Phone Number | | Organization | | | | + + + + + | [facility] | [address] | [place] [address] | [phone] | + + + + + Hepatitis [...] | | | | | 0.9The [facility] recommends | | | | | | that a positive HCV | | | | | | antibody resultbe | | | | | | followed up with a HCV | | | | | | Nucleic Acid | | | | | | Amplificationtest | | | | | | ([id number]).Testing | | | | | | performed at [facility], | | | | | | [address], | | | | | | [facility] [address] | | | | + + + + + + + + | Specimen | + + | Blood | + + + + + + + | Performing | Address | City/State/Zipcode | Phone Number | | Organization | | | | + + + + + | [facility] | [address] | [place] [address] | [phone] | + + + + + CK Total (12/25/2019 4:22 AM PDT) + + + + + + | Component | Value | Ref Range | Performed | Pathologist | | | | | At | Signature | + + + + + + | CK TOTAL | 100Comment: Testing | 55 - 400 U/L | [facility] | | | | performed at [facility] | | LABORATORY | | | | [facility], [place] | | | | | | [address] | | | | + + + + + + + + | Specimen | + + | Blood | + + + + + + + | Performing | Address | City/State/Zipcode | Phone Number | | Organization | | | | + + + + + | [facility] | [address] | [place] [address] | [phone] | + + + + + Lactate [...] HOSPITAL | | | | performed at [facility];[address] | | LABORATORY | | | | [address];[place] | | | | | | [address] | | | | + + + + + + + + | Specimen | + + | Blood | + + + + + + + | Performing | Address | City/State/Zipcode | Phone Number | | Organization | | | | + + + + + | [facility] | [address] | [place] [address] | [phone] | + + + + + Magnesium [...] HOSPITAL | | | | performed at [facility], [address] | | LABORATORY | | | | [address], | | | | | | [place] [address] | | | | + + + + + + + + | Specimen | + + | Blood | + + + + + + + | Performing | Address | City/State/Zipcode | Phone Number | | Organization | | | | + + + + + | [facility] | [address] | [place] [address] | [phone] | + + + + + Protein, [...] LABORATORY | | | | performed at [facility], [address] | | | | | [address], | | | | | | [place] [address] | | | | + + + + + + + + | Specimen | + + | | + + + + + + + | Performing | Address | City/State/Zipcode | Phone Number | | Organization | | | | + + + + + | [facility] | [address] | [place] [address] | [phone] | + + + + + Creatinine, [...] | | | urine | performed at [facility], [address] | | | | | [address], | | | | | | [place] [address] | | | | + + + + + + + + | Specimen | + + | | + + + + + + + | Performing | Address | City/State/Zipcode | Phone Number | | Organization | | | | + + + + + | [facility] | [address] | [place] [address] | [phone] | + + + + + Protein/Creatinine Ratio, Urine (12/25/2019 12:01 AM PDT) + + + + + + | Component | Value | Ref Range | Performed | Pathologist | | | | | At | Signature | + + + + + + | PRO/CREA | 0.942Comment: Testing | | [facility] | | | RATIO,URINE | performed at [facility], [address] | | LABORATORY | | | | [address], | | | | | | [place] [address] | | | | + + + + + + + + | Specimen | + + | Urine | + + + + + + + | Performing | Address | City/State/Zipcode | Phone Number | | Organization | | | | + + + + + | [facility] | [address] | [place] [address] | [phone] | + + + + + POC [...] | | | POC | performed at [facility];[address] | | LABORATORY | | | | [address];[place], [place] | | | | | | [address] | | | | + + + + + + + + | Specimen | + + | | + + + + + + + | Performing | Address | City/State/Zipcode | Phone Number | | Organization | | | | + + + + + | [facility] | [address] | [place] [address] | [phone] | + + + + + POC [...] | | | POC | performed at [facility];[address] | | LABORATORY | | | | [address];[place], [place] | | | | | | [address] | | | | + + + + + + + + | Specimen | + + | | + + + + + + + | Performing | Address | City/State/Zipcode | Phone Number | | Organization | | | | + + + + + | [facility] | [address] [facility] | [place] [address] | [phone] | + + + + + ECG [...] | | | Arterial, | performed at [facility];[address] | | LABORATORY | | | POC | [address];[place], [place] | | | | | | [address] | | | | + + + + + + + + | Specimen | + + | | + + + + + + + | Performing | Address | City/State/Zipcode | Phone Number | | Organization | | | | + + + + + | [facility] | [address] [facility] | [place] [address] | [phone] | + + + + + Coronavirus (COVID-19) NAAT (12/24/2019 1:10 PM PDT) + + + + + + | Component | Value | Ref Range | Performed | Pathologist | | | | | At | Signature | + + + + + + | SARS-CoV-2, | NEGATIVEComment: Testing | NEG | [facility] | | | NAAT | performed at [facility] | | LABORATORY | | | (COVID-19) | [address];[place], [place] | | | | | | [address] | | | | + + + [...] HOSPITAL [facility] | [address] | [place] [address] | [phone] | + + + + + Culture, [...] | | LABORATORY | | | | Blvd;[place] [address] | | | | + + + + + + | RESULT | NO GROWTH 6 DAYS | | [facility] | | | | | | LABORATORY | | + + + + + + | RESULT | Testing performed at | | [facility] | | | | [facility], [address] | | LABORATORY | | | | [place], [place] | | | | | | [id number]: Testing | | | | | | performed at [facility], [address] | | | | | | [address], [place], [place] | | | | | | [address] | | | | + + + [...] HOSPITAL LAB[facility]ORY | [address] | [place] [address] | [phone] | + + + + + Culture, [...] | | LABORATORY | | | | Blvd;[place] [address] | | | | + + + + + + | RESULT | NO GROWTH 6 DAYS | | [facility] | | | | | | LABORATORY | | + + + + + + | RESULT | Testing performed at | | [facility] | | | | [facility], [address] | | LABORATORY | | | | [place] | | | | | | [id number]: Testing | | | | | | performed at [facility], [address] | | | | | | [address], [place], [place] | | | | | | [address] | | | | + + + [...] [facility] | [address] | [place] [address] | [phone] | + + + + + Urinalysis [...] - 1.030 | [facility] | | | [place], | | | LABORATORY | | | [...] 1+ (A)Comment: Testing | NONE | [facility] | | | Urine | performed at [facility], [address] | | LABORATORY | | | | [address], | | | | | | [place] [address] | | | | + + + [...] HOSPITAL LAB[facility]ORY | [address] | [place] [address] | [phone] | + + + + + Sodium, [...] | | | urine | performed at [facility], [address] | | | | | [address], | | | | | | [place] [address] | | | | + + + [...] [facility] | [address] | [place] [address] | [phone] | + + + + + Creatinine, Urine, Random (12/24/2019 12:45 PM PDT) + + + + + + | Component | Value | Ref Range | Performed | Pathologist | | | | | At | Signature | + + + + + + | Creatinine, | 70.0Comment: NO NORMAL | mg/dL | [facility] | | | random | RANGE ESTABLISHEDTesting | | LABORATORY | | | urine | performed at [facility], [address] | | | | | | [address] [facility], | | | | | | [place] [address] | | | | + + + [...] HOSPITAL LAB[facility]ORY | [address] | [place] [address] | [phone] | + + + + + Lactic Acid (12/24/2019 12:27 PM PDT) + + + + + + | Component | Value | Ref Range | Performed | Pathologist | | | | | At | Signature | + + + + + + | Lactate, | 1.6Comment: Testing | 0.4 - 2.0 | [facility] | | | Serum | performed at [facility];[address] | mmol/L | LABORATORY | | | | [address];[place], [place] | | | | | | [address] | | | | + + + + + + + + | Specimen | + + | Blood | + + + + + + + | Performing | Address | City/State/Zipcode | Phone Number | | Organization | | | | + + + + + | [facility] | [address] | [place] [address] | [phone] | + + + + + Procalcitonin (12/24/2019 12:27 PM PDT) + + + + + + | Component | Value | Ref Range | Performed | Pathologist | | | | | At | Signature | + + + + + + | PROCALCITON | 0.69 (H)Comment: | <0.5 ng/mL | [facility] [...] | | | | | | at [facility];[address] [place] [address] | | | | | | [facility];[place] [address] | | | | + + + + + + + + | Specimen | + + | Blood | + + + + + + + | Performing | Address | City/State/Zipcode | Phone Number | | Organization | | | | + + + + + | [facility] | [address] | [place] [address] | [phone] | + + + + + POC [...] | | | POC | performed at [facility];[address] | | LABORATORY | | | | [address];[place] | | | | | | [address] | | | | + + + + + + + + | Specimen | + + | | + + + + + + + | Performing | Address | City/State/Zipcode | Phone Number | | Organization | | | | + + + + + | [facility] | [address] | [place] [address] | [phone] | + + + + + POC [...] | | | POC | performed at [facility];[address] | | LABORATORY | | | | [address];[place], [place] | | | | | | [address] | | | | + + + + + + + + | Specimen | + + | | + + + + + + + | Performing | Address | City/State/Zipcode | Phone Number | | Organization | | | | + + + + + | [facility] | [address] | [place] [address] | [phone] | + + + + + CBC [...] LABORATORY | | | | performed at [facility];[address] | | | | | | [address];[place] | | | | | | [address] | | | | + + + + + + + + | Specimen | + + | Blood | + + + + + + + | Performing | Address | City/State/Zipcode | Phone Number | | Organization | | | | + + + + + | [facility] | [address] [facility] | [place] [address] | [phone] | + + + + + Basic [...] | | | | | performed at [facility], [address] | | | | | | [facility], | | | | | | [place] [address] | | | | + + + + + + + + | Specimen | + + | Blood | + + + + + + + | Performing | Address | City/State/Zipcode | Phone Number | | Organization | | | | + + + + + | [facility] | [address] | [place] [address] | [phone] | + + + + + POC [...] | | | POC | performed at [facility];[address] | | LABORATORY | | | | [address];[place] | | | | | | [address] | | | | + + + + + + + + | Specimen | + + | | + + + + + + + | Performing | Address | City/State/Zipcode | Phone Number | | Organization | | | | + + + + + | [facility] | [address] | [place] [address] | [phone] | + + + + + POC [...] | | | POC | performed at [facility];[address] | | LABORATORY | | | | [address];[place], [place] | | | | | | [address] | | | | + + + + + + + + | Specimen | + + | | + + + + + + + | Performing | Address | City/State/Zipcode | Phone Number | | Organization | | | | + + + + + | [facility] | [address] | [place] [address] | [phone] | + + + + + POC [...] | | | POC | performed at [facility];[address] | | LABORATORY | | | | [address];[place] | | | | | | [address] | | | | + + + + + + + + | Specimen | + + | | + + + + + + + | Performing | Address | City/State/Zipcode | Phone Number | | Organization | | | | + + + + + | [facility] | [address] | [place] [address] | [phone] | + + + + + POC [...] | | | POC | performed at [facility];[address] | | LABORATORY | | | | [address];[place] | | | | | | [address] | | | | + + + + + + + + | Specimen | + + | | + + + + + + + | Performing | Address | City/State/Zipcode | Phone Number | | Organization | | | | + + + + + | [facility] | [address] | [place] [address] | [phone] | + + + + + Basic [...] | | | | | performed at [facility];[address] | | | | | | [facility];[place], [place] | | | | | | [address] | | | | + + + + + + + + | Specimen | + + | Blood | + + + + + + + | Performing | Address | City/State/Zipcode | Phone Number | | Organization | | | | + + + + + | [facility] | [address] | [place] [address] | [phone] | + + + + + Phosphorus (12/23/2019 4:04 AM PDT) + + + + + + | Component | Value | Ref Range | Performed | Pathologist | | | | | At | Signature | + + + + + + | Phosphorus | 4.6Comment: Testing | 2.3 - 4.8 mg/dL | [facility] | | | | performed at [facility];[address] | | LABORATORY | | | | [address];[place], [place] | | | | | | [address] | | | | + + + + + + + + | Specimen | + + | Blood | + + + + + + + | Performing | Address | City/State/Zipcode | Phone Number | | Organization | | | | + + + + + | [facility] | [address] | [place] [address] | [phone] | + + + + + Magnesium (12/23/2019 4:04 AM PDT) + + + + + + | Component | Value | Ref Range | Performed | Pathologist | | | | | At | Signature | + + + + + + | Magnesium | 2.1Comment: Testing | 1.7 - 2.4 mg/dL | [facility] | | | | performed at [facility];[address] | | LABORATORY | | | | [address];[place] | | | | | | [address] | | | | + + + + + + + + | Specimen | + + | Blood | + + + + + + + | Performing | Address | City/State/Zipcode | Phone Number | | Organization | | | | + + + + + | [facility] | [address] | [place] [address] | [phone] | + + + + + CBC [...] LABORATORY | | | | performed at [facility];[address] | | | | | [address];[place], [place] | | | | | | [address] | | | | + + + + + + + + | Specimen | + + | Blood | + + + + + + + | Performing | Address | City/State/Zipcode | Phone Number | | Organization | | | | + + + + + | [facility] | [address] | [place] [address] | [phone] | + + + + + Hemoglobin (12/22/2019 9:37 PM PDT) + + + + + + | Component | Value | Ref Range | Performed | Pathologist | | | | | At | Signature | + + + + + + | Hemoglobin | 9.1 (L)Comment: Testing | 13.2 - 17.0 | [facility] | | | | performed at [facility];[address] | g/dL | LABORATORY | | | | [address];[place] | | | | | | [address] | | | | + + + + + + + + | Specimen | + + | Blood | + + + + + + + | Performing | Address | City/State/Zipcode | Phone Number | | Organization | | | | + + + + + | [facility] | [address] | [place] [address] | [phone] | + + + + + Hematocrit (12/22/2019 9:37 PM PDT) + + + + + + | Component | Value | Ref Range | Performed | Pathologist | | | | | At | Signature | + + + + + + | Hematocrit | 27.4 (L)Comment: Testing | 39.0 - 50.0 % | [facility] | | | | performed at [facility];[address] | | LABORATORY | | | | [address];[place], [place] | | | | | | [address] | | | | + + + + + + + + | Specimen | + + | Blood | + + + + + + + | Performing | Address | City/State/Zipcode | Phone Number | | Organization | | | | + + + + + | [facility] | [address] | [place] [address] | [phone] | + + + + + POC [...] | | | POC | performed at [facility];[address] | | LABORATORY | | | | [address];[place], [place] | | | | | [...] HOSPITAL LABORATORY | [address] | [place] [address] | [phone] | + + + + + POC [...] | | | POC | performed at [facility];[address] | | LABORATORY | | | | [address];[place], [place] | | | | | | [address] | | | | + + + + + + + + | Specimen | + + | | + + + + + + + | Performing | Address | City/State/Zipcode | Phone Number | | Organization | | | | + + + + + | [facility] | [address] | [place] [address] | [phone] | + + + + + Red [...] | | LABORATORY | | | | Blvd;[place] [address] | | | | + + + + + + + + | Specimen | + + | | + + + + + + + | Performing | Address | City/State/Zipcode | Phone Number | | Organization | | | | + + + + + | [facility] | [address] | [place] [address] | [phone] | + + + + + POC [...] | | | POC | performed at [facility];[address] | | LABORATORY | | | | [address];[place], [place] | | | | | | [address] | | | | + + + + + + + + | Specimen | + + | | + + + + + + + | Performing | Address | City/State/Zipcode | Phone Number | | Organization | | | | + + + + + | [facility] | [address] | [place] [address] | [phone] | + + + + + [place] [...] | | | POC | performed at [facility];[address] | g/dL | LABORATORY | | | | [address];[place], [place] | | | | | | [address] | | | | + + + + + + + + | Specimen | + + | | + + + + + + + | Performing | Address | City/State/Zipcode | Phone Number | | Organization | | | | + + + + + | [facility] | [address] | [place] [address] | [phone] | + + + + + POC [...] | | | POC | performed at [facility];[address] | g/dL | LABORATORY | | | | [address];[place], [place] | | | | | | [address] | | | | + + + + + + + + | Specimen | + + | | + + + + + + + | Performing | Address | City/State/Zipcode | Phone Number | | Organization | | | | + + + + + | [facility] | [address] | [place] [address] | [phone] | + + + + + POC [...] | | | POC | performed at [facility];[address] | g/dL | LABORATORY | | | | [address];[place], [place] | | | | | | [address] | | | | + + + + + + + + | Specimen | + + | | + + + + + + + | Performing | Address | City/State/Zipcode | Phone Number | | Organization | | | | + + + + + | [facility] | [address] | [place] [address] | [phone] | + + + + + POC [...] (L)Comment: Testing | 13.7 - 16.7 | [facility] | | | POC | performed at [facility];[address] | g/dL | LABORATORY | | | | [address];[place], [place] | | | | | | [address] | | | | + + + + + + + + | Specimen | + + | | + + + + + + + | Performing | Address | City/State/Zipcode | Phone Number | | Organization | | | | + + + + + | [facility] | [address] | [place] [address] | [phone] | + + + + + Type [...] + + + | BB BAND | [id number] | | [facility] | | | | | | LABORATORY | | + + + + + + | UNIT # | [id number] | | [facility] | | | | [...] | | | RESULT | performed at [facility];[address] | | LABORATORY | | | | [address];[place], [place] | | | | | | [address] | | | | + + + + + + | UNIT # | [id number] | | [facility] | | | | [...] [facility] | [address] | [place] [address] | [phone] | + + + + + POC [...] | | | POC | performed at [facility];[address] | | LABORATORY | | | | [address];[place], [place] | | | | | | [address] | | | | + + + + + + + + | Specimen | + + | | + + + + + + + | Performing | Address | City/State/Zipcode | Phone Number | | Organization | | | | + + + + + | [facility] | [address] | [place] [address] | [phone] | + + + + + Protime [...] | | | | | performed at [facility];[address] | | | | | | [address];[place] | | | | | | [address] | | | | + + + + + + + + | Specimen | + + | Blood | + + + + + + + | Performing | Address | City/State/Zipcode | Phone Number | | Organization | | | | + + + + + | [facility] | [address] | [place] [address] | [phone] | + + + + + CBC [...] | | | Absolute | performed at [facility], [address] | K/uL | LABORATORY | | | | [address], | | | | | | [place] [address] | | | | + + + + + + + + | Specimen | + + | Blood | + + + + + + + | Performing | Address | City/State/Zipcode | Phone Number | | Organization | | | | + + + + + | [facility] | [address] | [place] [address] | [phone] | + + + + + Magnesium [...] HOSPITAL | | | | performed at [facility], [address] | | LABORATORY | | | | [address], | | | | | | [place] [address] | | | | + + + + + + + + | Specimen | + + | Blood | + + + + + + + | Performing | Address | City/State/Zipcode | Phone Number | | Organization | | | | + + + + + | [facility] | [address] | [place] [address] | [phone] | + + + + + Basic [...] | | | | | performed at [facility], [address] | | | | | | [address], | | | | | | [place] [address] | | | | + + + + + + + + | Specimen | + + | Blood | + + + + + + + | Performing | Address | City/State/Zipcode | Phone Number | | Organization | | | | + + + + + | [facility] | [address] | [place] [address] | [phone] | + + + + + POC [...] | | | POC | performed at [facility];[address] | | LABORATORY | | | | [address];[place], [place] | | | | | | [address] | | | | + + + + + + + + | Specimen | + + | | + + + + + + + | Performing | Address | City/State/Zipcode | Phone Number | | Organization | | | | + + + + + | [facility] | [address] | [place] [address] | [phone] | + + + + + POC [...] | | | POC | performed at [facility];[address] | | LABORATORY | | | | [address];[place] | | | | | | [address] | | | | + + + + + + + + | Specimen | + + | | + + + + + + + | Performing | Address | City/State/Zipcode | Phone Number | | Organization | | | | + + + + + | [facility] | [address] | [place] [address] | [phone] | + + + + + documented [...] | | | | | | longer, pbmhlb-qob-ksgdu use of | | | | | [...] | | | | | ineffective use [place] 10/325 if | | | | | [...] | | | | | | | 7355-5975 Use NIGHT DOSE for | | | | | | | doses scheduled: HS, | | | | | | | Nighttime 5826-8404 If the BG is | | | [...]
--- OUTSIDE RECORDS SUMMARY | ~2020-03-05 | XMS | Encounter Summary ---
Demographics + + + | Address | [address] | | | [place] [address] | + + + | Home Phone | | + + + | Preferred Language | Unknown | + + + | Marital Status | | + + + | Pentecostal Affiliation | 1001 | + + + [...] [place] | | | | | [address] | | + + + + + | Deanna Lawson | ECON | Unknown | | + + + + + Care Team Providers + +------+ + | Care Pile Header Name | Role | Phone | + [...] + + | 12/21/ | Anesthesia | [facility] | Ja Hill, | | | 2019 | Event | [facility] | STOCK FITTER [address] | | | | | OPER[address] | [place] [address] | | | | | [address] | [phone] | | | | | [place] | | | | | | [address] | | | | | | [phone] | | | +--------+ + + + [...] +----+---+ + + | | 0 | [place] | | | | 9 | 43-degrees [...] Savana Bowden RN | | IV | qxxn-bjc-nqfgee catheter system; | | | | | [...] EVALUATION Andres Guzmán 89 y.o. male 1930 [id number] Procedure(s) NAILING IM BETSY FEMUR - GAMMA [...] by Ja Hill CRNA 12/22/2019 10:41 AM [facility] C[facility] [...] EVALUATION Andres Guzmán 89 y.o. male 1930 [id number] Procedure(s): NAILING IM BETSY FEMUR - GAMMA [...] Blood transfusion concerns: None. Discussed plan with STOCK FITTER. documented in this e ncounter Miscellaneous Notes Anesthesia Post-op Handoff - Ja Hill CRNA - 12/22/2019 10:38 AM PDTFormatting of th is note might be different from the original. ANESTHESIA HANDOFF NOTE Anders Guzmán 89 y.o. male 1930 [id number] NAILING IM BETSY FEMUR - GAMMA NAIL [...] team. Ja Hill CRNA 12/22/2019 10:38 AM [facility] Ja Hill CRNA at [...] [place], | | | | | | [place] [address] | | | | | | [phone] | | | | | | | | +--------+---------+ + + + | 04/21/ | Office | Nephrology | Isiah Jade MD | | | 2019 | Visit | | [address] | | | | | | [address] [place] | | | | | | [address] | | | | | | | | +--------+---------+ + + + | 05/07/ | Office | Cardiology | Charlee Oswald | | | 2019 | Visit | | [address] | | | | | | [address] | | | | | | [place] [address] | | | | | | [phone] | | | | | | | [...]
--- OUTSIDE RECORDS SUMMARY | ~2020-03-05 | XMS | Encounter Summary ---
Demographics + + + | Address | [address] | | | [place] [address] | + + + | Home Phone | | + + + | Preferred Language | Unknown | + + + | Marital Status | | + + + | Sikh Affiliation | 1001 | + + + [...] [place] | | | | | [address] | | + + + + + | Deanna Lawson | ECON | Unknown | | + + + + + Care Team Providers + +------+ + | Care Supervisor Epoxy [employer]rication Name | Role | Phone | + +------+ + | Barbara Gilman MD | PCP | | + +------+ + Encounter Details +--------+ + + + + | Date | Type | Department | Care Team | Description | +--------+ + + + + | 09/02/ | Orders Only | [facility] | Enoch Thompson, | | | 2019 | | CARDIOLOGY OPHELIA | [address] | | | | | [address] | [facility], | | | | | [place], [place] | [place] [address] | | | | | [address] | [phone] | | | | | [phone] | | | +--------+ + + + [...] | | | | | [address], | | | | | | [place] [address] | | | | | | [phone] | | | | | | | | +--------+---------+ + + + | 04/21/ | Office | Nephrology | Isiah Jade MD | | | 2019 | Visit | | [address] [facility] | | | | | | [address] [place] | | | | | | [address] | | | | | | | | +--------+---------+ + + + | 05/07/ | Office | Cardiology | Charlee Oswald | | | 2019 | Visit | | [address] | | | | | | [address] | | | | | | [place] [address] | | | | | | [phone] | | | | | | | [...]
--- OUTSIDE RECORDS SUMMARY | ~2020-03-05 | XMS | Encounter Summary ---
Demographics + + + | Address | [address] | | | [place] [address] | + + + | Home Phone [...] [place] | | | | | [address] | | + + + + + | Deanna Lawson | ECON | Unknown | | + + + + + Care Team Providers + +------+ + | Care Wheel Aligner Name | Role | Phone | + [...] | | | | with other | [place] | [place] | | | | | diabetic | [address] | [address] | | | | | kidney | Phone: | Phone: | | | | | complication | [phone] | [phone] | | | | | (HCC) | Fax: | Fax: | | | | | Chronic | [phone] | [phone] | | | | | diastolic | [...] + + | 02/17/ | Office | [facility] | Melquiades Baez | Right hip pain | | 2020 | Visit | [facility] | [address] | (Primary Dx); | | | | MEDIC[facility] | [facility], | Orthopedic | | | | [address] [facility] | [place] [address] | aftercare; Closed | | | | [place], [place] | [phone] | fracture of right | | | | [address] | | hip with routine | | | | [phone] | | healing, subsequent | | | [...] Melquiades Baez, - 02/18/2020 1:10 PM PDT [facility] Service: [...] Baez DO has created this entry using [employer] Recognition software and [employer] macros. The entry has been reviewed and [...] | | | | | | [address] [facility], | | | | | | [place] [address] | | | | | | [phone] | | | | | | | | +--------+---------+ + + + | 04/21/ | Office | Nephrology | Isiah Jade MD | | | 2019 | Visit | | [address] | | | | | | [address] [place] | | | | | | [address] | | | | | | | | +--------+---------+ + + + | 05/07/ | Office | Cardiology | Charlee Oswald | | | 2019 | Visit | | [address] | | | | | | [address] | | | | | | [place] [address] | | | | | | [phone] | | | | | | | [...] created this | | | entry using [employer] Recognition software and [employer] | | | macros. The entry has been reviewed and there may still exist sound | | | alike word errors. | | | | | |Electronically signed by: Melquiades Baez DO 02/18/2020 1:54 PM PDT | | | | | | | | |Melquiades Baez DO has created this entry using [employer] | | |Recognition software and [employer] macros. The entry has been reviewed and [...]
--- OUTSIDE RECORDS SUMMARY | ~2020-03-05 | XMS | Encounter Summary ---
Demographics + + + | Address | [address] | | | [place] [address] | + + + | Home Phone [...] | [facility] | | | [...] [place] | | | | | [address] | | + + + + + | Deanna Lawson | ECON | Unknown | | + + + + + Care Team Providers + +------+ + | Care Manager Commercial Name | Role | Phone | + [...] + + | 12/21/ | Surgery | [facility] | Melquiades Baez | NAILING IM BETSY FEMUR | | 2019 | [facility] | DO [address] | - GAMMA NAIL | | | | OPERATING ROOM [address] | [facility], | | | | | [address] | [place] [address] | | | | | [place], [place] | [phone] | | | | | [address] | | | | | | [phone] | | | +--------+---------+ + + + [...] was on board. No immediate indication for INSPECTION AND TESTING SUPERVISOR. Patient was also seen by physical therapy and occupational therapy and was recommended for discharging to [facility]. However patient will b e going to [facility] at this time. Patient also had acute [...] No CVA tenderness, no spinal tenderness Disposition: [facility] Condition: Fair No discharge procedures on file. [...] LOS: 11 days To summarize previous records: Anrdes Guzmán is a 89 y.o. man followed [...] BUNCREARATIO 30 01/01/2020 PTH 72.57 (A) 04/01/2019 [id number] 25.2 (L) 12/27/2019 CALCIUM 8.6 01/01/2020 PHOS [...] been following up with EN[facility]INA mena in [place]. He has unrecovered acute kidney injury and a higher baseline creatinine. At this time there is no clinical uremia, refractory volume overload, refractory acidosis, refractory hyperkalemia and no urgent indication of starting INSPECTION AND TESTING SUPERVISOR. Neither is there an indication for [...] Incentive spirometry. Transfuse Prn. No indication for INSPECTION AND TESTING SUPERVISOR for now. Await renal recovery. On [...] was completed later after rounds. Dictation software, Ready, was used which may contain error for [...] but not limited to potential need for INSPECTION AND TESTING SUPERVISOR . This is a patient with [...] is waiting downstairs. Deanna Doe RN, CMSRN, [facility] Inpatient Wound Ostomy Care [phone] 01/01/2020 11:46 AM Chai, Savana Irving RN [...] BUNCREARATIO 25 12/31/2019 PTH 72.57 (A) 04/01/2019 [id number] 25.2 (L) 12/27/2019 CALCIUM 8.5 12/31/2019 PHOS [...] been following up with [facility]INA mena in [place]. He has unrecovered acute kidney injury and a higher baseline creatinine. At this time there is no clinical uremia, refractory volume overload, refractory acidosis, refractory hyperkalemia and no urgent indication of starting INSPECTION AND TESTING SUPERVISOR. Neither is there an indication for [...] Incentive spirometry. Transfuse Prn. No indication for INSPECTION AND TESTING SUPERVISOR for now. Await renal recovery. I [...] was completed later after rounds. Dictation software, Ready, was used which may contain error for [...] but not limited to potential need for INSPECTION AND TESTING SUPERVISOR . This is a patient with [...] see wound RN note for treatment. [facility] ed, continue wound care at swing bed, send with extra dressing supplies. *Metabolic bone disorder: elevated PTH and phosphorus. Treatment per cardiac tech (see thei r note). Subjective No chest [...] admitted as a transfer from [facility] due t o a mechanical fall [...] [facility] in [place], [place] for rehabilitation purposes. Hospital stay was [...] PRN Medications Ordered in [facility] Medication Dose Route Frequency Provider Last [...] accepted at [facility] in [place] with discharge plans tomorrow for rehabilit ation [...] tomorrow to [facility] in [place], [place] for rehabi litation. Called his daughter Ms. Huerta and left a message with updated information at phone number [phone]. Jerry Chino MD 12/30/2019 turgill, DALILA Keys - 12/30/2019 12:35 PM PDTFormatting of this note might be different from the [facility]: Gastroenterology Consult Progress Note Hospital [...] Infusions dextrose 10% pantoprazole 8 mg/hr (12/30/19 0928) PRN Medications acetaminophen OR acetaminophen OR acetaminophen, [...] physician, the nurse, the anesthesiologist and the emissions technician in the pre-procedure area in the [...] successful. Thermal coagulation with Gold probe 7 Palauan x 5 pulses was successful with hemostasis. [...] ll with any questions. Florina Cantu PA-C [facility] Gastroenterology 12/30/2019 Associated attestation - Lamont Hernandez MD - 12/31/2019 2:17 PM [id number] male with GI bleeding due to duodenal ulcer with visible vessel. The ulcer and visible vessel were tr eated with injection and gold probe thermal coagulation. The patient was seen and examined by me personally. The case was discussed with the physician's assistant production manager and I agree with the assessment and p tim as outlined in the note. Continue PPI IV infusion for total of 72 hours and then when patient is discharged he must be on twice daily PPI for 8 weeks. Resume Eliquis in 1 week. Lamont Hernandez MD Gastroenterology staffMorgan CityMarycarmen, [facility] - 12/30/2019 11:05 AM PDTFormatting of [...] status. Disposition: Plan to [facility] tomorrow[facility], once medically stable and cleared by [...] BUNCREARATIO 23 12/30/2019 PTH 72.57 (A) 04/01/2019 [id number] 25.2 (L) 12/27/2019 CALCIUM 8.6 12/30/2019 PHOS [...] been following up with [facility] mena in [place]. That had improved with nonoliguric state but now seems to have leveled off at around 3 and this may be reflection of unrecovered acute kidney injury and a higher baseline creatinine. At this time there is no clinical uremia, refractory volume overload, refractory acidosis, refractory hyperkalemia and no urgent indication of starting INSPECTION AND TESTING SUPERVISOR. Neither is there an indication for [...] Incentive spirometry. Transfuse Prn. No indication for INSPECTION AND TESTING SUPERVISOR for now. Await renal recovery. I [...] was completed later after rounds. Dictation software, Ready, was used which may contain error for [...] but not limited to potential need for INSPECTION AND TESTING SUPERVISOR . This is a patient with [...] BUNCREARATIO 30 12/29/2019 PTH 72.57 (A) 04/01/2019 [id number] 25.2 (L) 12/27/2019 CALCIUM 8.7 12/29/2019 PHOS [...] been following up with [facility] mena in [place]. That seems to be improving with nonoliguric state and small reduction in creatinine. At this time there is no clinical uremia, refractory volume overload, refractory acidosis, refractory hyperkalemia and no urgent indication of starting INSPECTION AND TESTING SUPERVISOR. Neither is there an indication for [...] Incentive spirometry. Transfuse Prn. No indication for INSPECTION AND TESTING SUPERVISOR for now. Await renal recovery. I [...] was completed later after rounds. Dictation software, Ready, was used which may contain error for [...] but not limited to potential need for INSPECTION AND TESTING SUPERVISOR . acetaminophen 1,000 mg Oral 3 [...] admitted as a transfer from [facility] due t o a mechanical fall [...] placement and he was accepted by [facility] in [place], [place] for rehabilitation purposes. Hospita l stay [...] by [facility] in [place], [place] with discharge plans early next weeks [...] another 1 to 2 to SNF in [place], [place] if remains stable and improve d. Called his daughter Ms. Huerta and updated her about plans at phone number [phone]. Jerry Chino MD 12/29/2019 Norma Sarabia RN [...] BUNCREARATIO 28 12/28/2019 PTH 72.57 (A) 04/01/2019 [id number] 25.2 (L) 12/27/2019 CALCIUM 8.5 12/28/2019 PHOS [...] been following up with [facility] mena in [place]. That seems to be improving with nonoliguric state and small reduction in creatinine. At this time there is no clinical uremia, refractory volume overload, refractory acidosis, refractory hyperkalemia and no urgent indication of starting INSPECTION AND TESTING SUPERVISOR. Neither is there an indication for [...] Incentive spirometry. Transfuse Prn. No indication for INSPECTION AND TESTING SUPERVISOR for now. Await renal recovery. I [...] was completed later after rounds. Dictation software, Ready, was used which may contain error for [...] but not limited to potential need for INSPECTION AND TESTING SUPERVISOR . acetaminophen 1,000 mg Oral 3 [...] DALILA Peralta has created this entry using frenting Recognition [employer] and [employer] macros. The entry has been reviewed and [...] admitted as a transfer from [facility] due t o a mechanical fall [...] placement and he was accepted by [facility] bed [facility] in [place], [place] for rehabilitation purposes. Hospita l stay [...] PRN Medications Ordered in [facility] Medication Dose Route Frequency Provider Last [...] mg 4 mg Intravenous Q6H PRN Anders Soot PA-C 4 mg at 12/28/19 0451 senna [...] progress, he is accepted by [facility] in [place], [place] with discharge plans possib ly early [...] 1 to 2 to a SNF in [place], [place] when renal functions are st able and cleared by Nephrology services. Also called his daughter Ms. Huerta and updated her a bout plans at phone number [phone]. Jerry Chino MD 12/28/2019 hazal Robbins COTA [...] been following up with [facility] mena in [place]. That seems to be improving with nonoliguric state and small reduction in creatinine. At this time there is no clinical uremia, refractory volume overload, refractory acidosis, refractory hyperkalemia and no urgent indication of starting INSPECTION AND TESTING SUPERVISOR. Neither is there an indication for [...] Incentive spirometry. Transfuse Prn. No indication for INSPECTION AND TESTING SUPERVISOR for now. Await renal recovery. I [...] was completed later after rounds. Dictation software, Ready, was used which may contain error for [...] but not limited to potential need for INSPECTION AND TESTING SUPERVISOR . acetaminophen 1,000 mg Oral 3 [...] status. Disposition: Plan to discharge Sukhdev, to [facility], once medically stable a nd cleared [...] Net -400 ml . Treatment plan: per cardiac tech; slowly improving. *Blood pressure: labile; See VS [...] disorder: elevated PTH and phosphorus. Treatment per cardiac tech (see thei r note). Subjective No chest [...] admitted as a transfer from [facility] due t o a mechanical fall [...] PRN Medications Ordered in [facility] Medication Dose Route Frequency Provider Last [...] trength and mobility. He is accepted by [facility] in [place], [place] and discharge is delayed due to [...] to 3 days to a SNF in [place], [place] when renal functions a re stable [...] admitted as a transfer from [facility] due t o a mechanical fall [...] PRN Medications Ordered in [facility] Medication Dose Route Frequency Provider Last [...] placement is recommended. 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 Huerta and the at phone number [phone] Code Status: Full Code Regino Greene MD [...] status. Disposition: Plan to discharge Monday, to [facility], once medically stable a nd cleared [...] lab follow-up and treatment per hospitalist and cardiac tech. *Blood pressure: hypotensive; See VS for BP trending. 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 Current Weight: 63.5 kg (140 lb) [...] Dr. Huerta and the at phone number [phone] Code Status: Full Code Regino Greene MD [...] conversation with family members today. Inpatient rehab therapist. Code Status: Full Code Regino Greene MD [...] sodium chloride 0.9% 100 mL/hr at 12/22/19 9784 OBJECTIVE Vital Signs: Vitals with Comments 12/22/2019 [...] GAMMA NAIL; Surgeon: Melquiades Baez DO; Location: [facility] MAIN OR OTHER SURGICAL HISTORY CATARACT EXTRACTION [...] Electronically Signed by: Lamont Hernandez MD 12/29/2019 [facility] Portions of this chart may have been created with [employer] recognition software. Occasi onal wrong-word or sound-alike [...] is a 89 y.o. male Transfer from [facility] after fall with right hip fracture with multiple comor bidities being on Eliquis as well requested for higher level of care to transfer to [facility] h orthopedic 89 years old gentleman fall at this morning mechanical fall tripped on the curb and result ed in right hip pain [facility] visited x-ray found to have a [...] and LFT Orthopedic on-call was consulted from [facility] and requested to transfer for higher level of care At [facility] with multiple comorbidities REVIEW OF SYSTEMS 12 [...] transfer lab WBC 5.9 hb10.2 hct 30.5 [id number] potassium 5.1 Bun 85 cre 2.6 Co2-24 [...] as per stated reason Chronic A. fib [id number]- VASC score is 6- Hold Eliquis for [...] Old records reviewed on EMR. Dictation software, Ready, used which may contain error for similar sounding words even af ter review. Personal communication requested for any clarification. Disposition: inpatient Code Status: FULL CODE Primary Care Physician: MD Julián Nobles MD 12/21/2019 documented in thi s encounter Consult Notes Lamont Hernandez MD - 12/29/2019 10:26 AM PDT Gastroenterology Consultation: [facility] 12/29/2019 Andres Jones Ramirez 89 y.o. [id number] History of present illness: Gastroenterology consultation is requested for evaluation of GI bleeding with melena. This is an 89-year-old male with multiple medical problems and a history of hypertension, d iabetes, CKD stage III who was transferred from [facility] due to a fall and he sustain [...] GAMMA NAIL; Surgeon: Melquiades Baez DO; Location: [facility] MAIN OR OTHER SURGICAL HISTORY CATARACT EXTRACTION [...] file Gets together: Not on file Attends mu-ism service: Not on file Active member of [...] this chart may have been created with Ready voice recognition software. Occasi onal wrong-word or [...] patient was transferr ed from [facility] for surgery. The patient did [...] Tristan Gage at the nephrology clinic in [place]. The patien t is poor historian and does not recall seeing a cardiac tech in the past. He also not awar [...] and cirrhosis He was transferred to [facility], and is now s/p ORIF [...] GAMMA NAIL; Surgeon: Melquiades Baez DO; Location: [facility] MAIN OR OTHER SURGICAL HISTORY CATARACT EXTRACTION [...] Order(s): PROVIDER TO PROVIDER CONSULT [facility] Orthopaedic and Sports Medicine Service: Orthopedic [...] surgery. He will be taken [facility] a [facility] hip cephalo-medullary nail.The risks and benefits [...] might b e different from the original. CUSTODIAL FACILITY TRANSFER ORDERS Patient Name: Andres Guzmán [...] limb(s)): [x] OT Evaluation & Treat [] WIRE WHEELER Evaluation Treat Wound/Skin Care: [] Follow current recommendations of the wound team for treatment. [] Wound Vac management per nursing protocol. Labs/Imaging: [] PT/INR: Frequency per SNF provider Goal INR: [] Fingerstick glucose check before meals and bedtime and PRN [] Labs: Follow up: Melquiades Baez DO [address] [facility] [id number] In 2 weeks For post op care Barbara Gilman MD [address] [place] [address] In 1 week I have advised [...] Regino Greene MD, certify that post hospital jail care is medically necessa ry on a continuing basis for any of the conditions for which he/she received care during thi s hospitalization. Additional Orders/Instructions: Physician's signature: 01/01/2020 10:59 AM [facility] NURSING FACILITY USE ONLY: [] Admitting [...] HIGH Current Discharge Plan Anticipated Discharge Disposition: jail facility Expected DC Date: 12/31/2019 Barriers to Discharge: placement Steps Taken Toward Discharge: Attended morning rounds, called [facility] and provided upd ate of Pt Next Steps: d/c to [facility] Community Support Services Current Outpt/Agency/Support Groups: none Community Agency Name: none Other Resources: Discharge Transportation Transportation Needs: agency transportation Notes: Pt on course to discharge to [facility] tomorrow. Idalia brown d with [facility] team and they are accepting Pt tomorrow if Pt is medically ready. Cm will follow for d/c needs that arise. Electronically signed: Ja Marcus RN 12/31/2019 3:54 PM lan of Andrez Perry PTA - 12/31/2019 2:04 PM PDT Physical Therapy Treatment Note Recommended discharge disposition: jail facility Post discharge physical therapy recommendation: Equipment [...] LTG Status continued at 12/30/2019 0805 LTG Vernon Level supervised at 12/30/2019 08 LTG Assistive Device none at 12/30/2019 0805 All Transfers Goal Most Recent Value LTG Status new at 12/30/2019804 LTG Vernon Level minimum assist (75% patient effort) at 12/30/2019804 LTG Assistive Device 2 wheeled walker (FWW) at 12/30/2019804 Gait Goal Most Recent Value LTG Status new at 12/30/2019804 LTG Vernon Level minimum assist (75% patient effort) at 12/30/2019804 LTG Assistive Device 2 wheeled walker (FWW) at 12/30/2019804 LTG Distance (feet) 50ft at 12/30/2019 08 PT Time Calculation Individual Start Time: 1307 Individual Stop Time: 1320 Individual Total Time: 13 PT Total Treatment Time: 13 lan of [facility] - Liz Cabral RN - 12/31/2019 8:00 [...] of plan for discharge to [facility] tomorrow and has no concerns regarding disc [...] Physical Therapy Treatment Note Recommended discharge disposition: jail facility Post discharge physical therapy recommendation: Equipment [...] Bed Mobility Sit to Supine, Level of Vernon: moderate assist (50% patient effort) Safety Issues: decreased use of legs for bridging/pushing Impairments: strength decreased Transfers Chair-Bed, Level of Vernon: moderate assist (50% patient effort) Lrj-Tmaex-Cay, Assistive Device: gait belt Sit-Stand, Level of Vernon: moderate assist (50% patient effort) Stand-Sit, Level of Vernon: moderate assist (50% patient effort) Trb-Ymgcu-Ado, Assistive Device: gait belt Safety Issues: balance decreased during turns, step length decreased Impairments: strength decreased Goals Reflects last filed data and may be from multiple contributors. All Bed Mobility Goal Most Recent Value LTG Status continued at 12/30/2019 0805 LTG Vernon Level supervised at 12/30/2019 0805 LTG Assistive Device none at 12/30/2019 0805 All Transfers Goal Most Recent Value LTG Status new at 12/30/2019 0805 LTG Vernon Level minimum assist (75% patient effort) at 12/30/2019 0805 LTG Assistive Device 2 wheeled walker (FWW) at 12/30/2019 0805 Gait Goal Most Recent Value LTG Status new at 12/30/2019 0805 LTG Vernon Level minimum assist (75% patient effort) at [...] Bed in low position, gait belt available, coreroom foundry laborer socks on. Problem: Skin Injury Risk Increased [...] Physical Therapy Re-Assessment Note Recommended discharge disposition: jail facility Post discharge physical therapy recommendation: ongoing low intensity therapy, will benefi t from structured setting Equipment Recommendations: (TBD) Barriers to community-based discharge Physical Impairment, Pain, and Fall risk Planned Interventions: balance training, bed mobility training, gait training, home exercis e program, manual therapy techniques, patient/family education, ROM (Range of Motion), stair training, strengthening, stretching, slovak ball techniques, wheelchair management/propulsio n training Recommended [...] Documentation: sit to/from stand Sit-Stand, Level of Vernon: moderate assist (50% patient effort) Stand-Sit, Level of Vernon: moderate assist (50% patient effort) Wyh-Plfkv-Kgh, Assistive Device: other (see comments)(platform walker ) Maintain Weight Bearing Status: able to maintain weight bearing status Safety Issues: balance decreased during turns Impairments: pain, strength decreased, impaired balance Gait Gait Comments: ambulated with shuffled steps and decreased quita Level of Vernon: moderate assist (50% patient effort) Assistive Device: [...] LTG Status continued at 12/30/2019 08 LTG Vernon Level supervised at 12/30/2019 08 LTG Assistive Device none at 12/30/2019 0805 All Transfers Goal Most Recent Value LTG Status new at 12/30/2019 0805 LTG Vernon Level minimum assist (75% patient effort) at 12/30/2019 0805 LTG Assistive Device 2 wheeled walker (FWW) at 12/30/2019 0805 Gait Goal Most Recent Value LTG Status new at 12/30/2019 0805 LTG Vernon Level minimum assist (75% patient effort) at [...] Physical Therapy Treatment Note Recommended discharge disposition: jail facility Post discharge physical therapy recommendation: Equipment [...] Bed Mobility Supine to Sit, Level of Vernon: moderate assist (50% patient effort) Sit to Supine, Level of Vernon: moderate assist (50% patient effort) Safety Issues: decreased use of legs for bridging/pushing Impairments: strength decreased Transfers Sit-Stand, Level of Vernon: moderate assist (50% patient effort) Stand-Sit, Level of Vernon: moderate assist (50% patient effort) Rfy-Ahnad-Wkm, Assistive Device: other (see comments)(UP walker) Safety Issues: balance decreased during turns, step length decreased Impairments: strength decreased Gait Level of Vernon: moderate assist (50% patient effort) Assistive Device: [...] LTG Status new at 12/23/2019 1600 LTG Vernon Level supervised at 12/23/2019 1600 LTG Assistive Device none at 12/23/2019 1600 All Transfers Goal Most Recent Value LTG Status new at 12/23/2019 1600 LTG Vernon Level modified independent at 12/23/2019 1600 LTG Assistive Device 2 wheeled walker (FWW) at 12/23/2019 1600 Gait Goal Most Recent Value LTG Status new at 12/23/2019 1600 LTG Vernon Level stand by assist at 12/23/2019 1600 [...] request. 12 :36 PM PDTPlan of [facility] - Andrez Llamas PTA - 12/27/2019 12:05 [...] Bed Mobility Supine to Sit, Level of Vernon: moderate assist (50% patient effort) Safety Issues: decreased use of legs for bridging/pushing Impairments: strength decreased Transfers Sit-Stand, Level of Vernon: moderate assist (50% patient effort) Stand-Sit, Level of Vernon: moderate assist (50% patient effort) Apj-Fjcle-Ooa, Assistive Device: other (see comments)(UP walker) Safety Issues: balance decreased during turns, step length decreased Impairments: strength decreased Exercises Bed exercises: ankle pumps, quad sets, heel slides, hip abduction/adduction, glut sets Goals Reflects last filed data and may be from multiple contributors. All Bed Mobility Goal Most Recent Value LTG Status new at 12/23/2019 1600 LTG Vernon Level supervised at 12/23/2019 1600 LTG Assistive Device none at 12/23/2019 1600 All Transfers Goal Most Recent Value LTG Status new at 12/23/2019 1600 LTG Vernon Level modified independent at 12/23/2019 1600 LTG Assistive Device 2 wheeled walker (FWW) at 12/23/2019 1600 Gait Goal Most Recent Value LTG Status new at 12/23/2019 1600 LTG Vernon Level stand by assist at 12/23/2019 1600 [...] handled ghada e horn, long handled sponge, peace officer, sock aide Barriers to community-based discharge: Level [...] x1, rest break inbetween set d/t fatigue. JAMUL for proper tech during ex able to continue seq uence intitially however would require cueing/assist later on in reps. Goals Reflects last filed data and may be from multiple contributors. LB Dressing Goal Most Recent Value LTG Status new at 12/24/2019 0953 LTG Vernon Level moderate assist (50% patient effort), verbal cues required at 12/23 0953 LTG Adaptive Equipment peace officer, shoe horn, long handled, sock-aid [AE as needed] at 2019 0953 Toilet Transfer Goal Most Recent Value LTG Status new at 12/24/2019 0953 LTG Vernon Level minimum assist (75% patient effort), verbal [...] Bed Mobility Supine to Sit, Level of Vernon: moderate assist (50% patient effort) Sit to Supine, Level of Vernon: moderate assist (50% patient effort) Safety Issues: decreased use of legs for bridging/pushing Impairments: strength decreased Transfers Sit-Stand, Level of Vernon: moderate assist (50% patient effort) Stand-Sit, Level of Vernon: moderate assist (50% patient effort) Twd-Laylp-Zof, Assistive Device: other (see comments)(Up walker) Safety Issues: balance decreased during turns, step length decreased Impairments: strength decreased Gait Level of Vernon: moderate assist (50% patient effort) Assistive Device: [...] LTG Status new at 12/23/2019 1600 LTG Vernon Level supervised at 12/23/2019 1600 LTG Assistive Device none at 12/23/2019 1600 All Transfers Goal Most Recent Value LTG Status new at 12/23/2019 1600 LTG Vernon Level modified independent at 12/23/2019 1600 LTG Assistive Device 2 wheeled walker (FWW) at 12/23/2019 1600 Gait Goal Most Recent Value LTG Status new at 12/23/2019 1600 LTG Vernon Level stand by assist at 12/23/2019 1600 [...] Bed Mobility Supine to Sit, Level of Vernon: moderate assist (50% patient effort) Safety Issues: decreased use of legs for bridging/pushing Impairments: strength decreased Transfers Sit-Stand, Level of Vernon: moderate assist (50% patient effort) Stand-Sit, Level of Vernon: moderate assist (50% patient effort) Bho-Dsmmx-Iin, Assistive Device: other (see comments)(Up walker) Safety Issues: balance decreased during turns, step length decreased Impairments: strength decreased Gait Level of Vernon: moderate assist (50% patient effort) Assistive Device: [...] LTG Status new at 12/23/2019 1600 LTG Vernon Level supervised at 12/23/2019 1600 LTG Assistive Device none at 12/23/2019 1600 All Transfers Goal Most Recent Value LTG Status new at 12/23/2019 1600 LTG Vernon Level modified independent at 12/23/2019 1600 LTG Assistive Device 2 wheeled walker (FWW) at 12/23/2019 1600 Gait Goal Most Recent Value LTG Status new at 12/23/2019 1600 LTG Vernon Level stand by assist at 12/23/2019 1600 [...] HIGH Current Discharge Plan Anticipated Discharge Disposition: jail facility Expected DC Date: 12/30/2019 Barriers to Discharge: placement Steps Taken Toward Discharge: Attended morning rounds Next Steps: d/c to [facility] Community Support Services Current Outpt/Agency/Support Groups: none Community Agency Name: none Other Resources: Discharge Transportation Transportation Needs: agency transportation Notes: Pt not medically ready for discharge. Cm called Idalia CM at [facility] and updat ed her on Pt progress. Pt may be ready for d/c Monday. Cm will continue to follow for placem ent needs. Electronically signed: Ja Marcus RN 12/26/2019 11:46 AM lan of [facility] t - [...] Bed Mobility Sit to Supine, Level of Vernon: maximal assist (25% patient effort), verbal cues requ ired Safety Issues: decreased use of legs for bridging/pushing, decreased use of arms for pushin g/pulling Impairments: strength decreased, pain, impaired balance Transfers Sit-Stand, Level of Vernon: moderate assist (50% patient effort), verbal cues require d Stand-Sit, Level of Vernon: moderate assist (50% patient effort), verbal cues require d Zps-Kvzgk-Auh, Assistive Device: 2 wheeled walker (FWW), gait belt Safety Issues: sequencing ability decreased, balance decreased during turns Gait Level of Vernon: moderate assist (50% patient effort) Assistive Device: [...] LTG Status new at 12/23/2019 1600 LTG Vernon Level supervised at 12/23/2019 1600 LTG Assistive Device none at 12/23/2019 1600 All Transfers Goal Most Recent Value LTG Status new at 12/23/2019 1600 LTG Vernon Level modified independent at 12/23/2019 1600 LTG Assistive Device 2 wheeled walker (FWW) at 12/23/2019 1600 Gait Goal Most Recent Value LTG Status new at 12/23/2019 1600 LTG Vernon Level stand by assist at 12/23/2019 1600 [...] HIGH Current Discharge Plan Anticipated Discharge Disposition: jail facility Expected DC Date: 12/27/2019 Barriers to Discharge: placement Steps Taken Toward Discharge: Attended rounds Next Steps: d/c to [facility] Community Support Services Current Outpt/Agency/Support Groups: none Community Agency Name: none Other Resources: Discharge Transportation Transportation Needs: agency transportation Notes: Pt not medically ready for discharge. Cm received call from [facility]. Pt has been accepted but wants [...] (Range of Motion), stair training, strengthening, stretching, slovak ball techniques, w heelchair management/propulsion training Recommended [...] HOB elevated Supine to Sit, Level of Vernon: moderate assist (50% patient effort), verbal cues req uired Safety Issues: decreased use of legs for bridging/pushing, decreased use of arms for pushin g/pulling Impairments: strength decreased, pain, impaired balance Transfers Additional Documentation: sit to/from stand Chair-Bed, Level of Vernon: moderate assist (50% patient effort), verbal cues require d Vrw-Yxmnp-Xic, Assistive Device: 2 wheeled walker (FWW) Sit-Stand, Level of Vernon: moderate assist (50% patient effort), verbal cues require d Stand-Sit, Level of Vernon: moderate assist (50% patient effort), verbal cues require d Mhi-Mzple-Ule, Assistive Device: 2 wheeled walker (FWW), gait belt Maintain Weight Bearing Status: able to maintain weight bearing status Safety Issues: sequencing ability decreased, balance decreased during turns Impairments: impaired balance, coordination impaired, pain, decreased flexibility Gait Gait Comments: 4 steps to chair Level of Vernon: moderate assist (50% patient effort) Assistive Device: [...] LTG Status new at 12/23/2019 1600 LTG Vernon Level supervised at 12/23/2019 1600 LTG Assistive Device none at 12/23/2019 1600 All Transfers Goal Most Recent Value LTG Status new at 12/23/2019 1600 LTG Vernon Level modified independent at 12/23/2019 1600 LTG Assistive Device 2 wheeled walker (FWW) at 12/23/2019 1600 Gait Goal Most Recent Value LTG Status new at 12/23/2019 1600 LTG Vernon Level stand by assist at 12/23/2019 1600 LTG Assistive Device 2 wheeled walker (FWW) at 12/23/2019 1600 LTG Distance (feet) 50 at 12/23/2019 1600 lan of Astre Stearns RN - 12/25/2019 10:53 AM PDTPt [...] long handled shoe horn, long handled sponge, peace officer, sock aide(BSC (?)) Barriers to community-based discharge [...] seated in the recliner Grooming, Level of Vernon: supervised Assistive Device: none Grooming Assess/Train, Position: sitting Bed Mobility Additional Documentation: supine to/from sit Assistive Device: HOB elevated, bed rails Sit to Supine, Level of Vernon: maximal assist (25% patient effort), verbal cues [...] stand, bed to/from chair Chair-Bed, Level of Vernon: moderate assist (50% patient effort), verbal cues require d Sny-Vanrd-Mur, Assistive Device: gait belt Sit-Stand, Level of Vernon: moderate assist (50% patient effort), verbal cues require d Stand-Sit, Level of Vernon: moderate assist (50% patient effort), verbal cues require d Peq-Lxdyo-Exh, Assistive Device: 2 wheeled walker (FWW), gait [...] LTG Status new at 12/24/2019 0953 LTG Vernon Level moderate assist (50% patient effort), verbal cues required at 12/23 0953 LTG Adaptive Equipment peace officer, shoe horn, long handled, sock-aid [AE as needed] at 2019 0953 Toilet Transfer Goal Most Recent Value LTG Status new at 12/24/2019 0953 LTG Vernon Level minimum assist (75% patient effort), verbal [...] HOB elevated Supine to Sit, Level of Vernon: moderate assist (50% patient effort), verbal cues req uired Safety Issues: decreased use of arms for pushing/pulling, decreased use of legs for bridgin g/pushing Impairments: decreased flexibility, pain, impaired balance Transfers Additional Documentation: sit to/from stand Sit-Stand, Level of Vernon: minimal assist (75% patient effort) Stand-Sit, Level of Vernon: minimal assist (75% patient effort) Dnh-Ijdcz-Tmr, Assistive Device: 2 wheeled walker (FWW) Maintain Weight Bearing Status: able to maintain weight bearing status Safety Issues: sequencing ability decreased Impairments: decreased flexibility, impaired balance, pain Gait Gait Comments: side stepping to recliner Level of Vernon: minimal assist (75% patient effort) Assistive Device: [...] LTG Status new at 12/23/2019 1600 LTG Vernon Level supervised at 12/23/2019 1600 LTG Assistive Device none at 12/23/2019 1600 All Transfers Goal Most Recent Value LTG Status new at 12/23/2019 1600 LTG Vernon Level modified independent at 12/23/2019 1600 LTG Assistive Device 2 wheeled walker (FWW) at 12/23/2019 1600 Gait Goal Most Recent Value LTG Status new at 12/23/2019 1600 LTG Vernon Level stand by assist at 12/23/2019 1600 [...] discharge planning concerns Services Anticipated at Discharge: jail facility Equipment Used at Home: cane, straight, single point, 2 wheeled walker (FWW) Equipment Needed after Discharge: walker, standard Durable Medical Equipment Provider: Pharmacy/Medication Needs: other (see comments)([facility] in [place], [place]) Transportation Needs: agency transportation Initial Plan Anticipated Discharge Disposition: jail facility Expected DC Date: other (see comments)(SNF [...] stated that he would like to go [facility] bed if needed before going home. Cm called [facility] and received contact [facility] Idalia Garduno [phone]. Cm sent referral to [facility]. Pt stated that Deanna (daughter) edgardo harmon [...] (Range of Motion), stair training, strengthening, stretching, slovak ball techniques, wheelchair management/propulsio n training Recommended [...] HOB elevated Supine to Sit, Level of Vernon: moderate assist (50% patient effort) Sit to Supine, Level of Vernon: maximal assist (25% patient effort) Safety Issues: decreased use of arms for pushing/pulling, decreased use of legs for bridgin g/pushing Impairments: decreased flexibility, impaired balance, pain Transfers Additional Documentation: sit to/from stand Sit-Stand, Level of Vernon: minimal assist (75% patient effort) Stand-Sit, Level of Vernon: minimal assist (75% patient effort) Aho-Ogrwo-Egf, Assistive Device: 2 wheeled walker (FWW) Maintain [...] LTG Status new at 12/23/2019 1600 LTG Vernon Level supervised at 12/23/2019 1600 LTG Assistive Device none at 12/23/2019 1600 All Transfers Goal Most Recent Value LTG Status new at 12/23/2019 1600 LTG Vernon Level modified independent at 12/23/2019 1600 LTG Assistive Device 2 wheeled walker (FWW) at 12/23/2019 1600 Gait Goal Most Recent Value LTG Status new at 12/23/2019 1600 LTG Vernon Level stand by assist at 12/23/2019 1600 [...] Melquiades Baez DO - 12/22/2019 10:34 AM [facility] Service: Orthopaedic [...] by: Melquiades Baez DO, 12/22/2019 10:35 AM [facility] lan of Care - Cru z, [...] 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 EKG and Ches [...] | | | | | [address] [place], | | | | | | [place] [address] | | | | | | [phone] | | | | | | | | +--------+---------+ + + + | 04/21/ | Office | Nephrology | Isiah Jade MD | | 2019 | Visit | | [address] [facility] | | | | | | [address] | | | | | | [address] | | | | | | | | +--------+---------+ + + + | 05/07/ | Office | Cardiology | Charlee Oswald | | | 2019 | Visit | | [address] | | | | | | [address] | | | | | | [place] [address] | | | | | | [phone] | | | | | | | [...] | | | POC | performed at [facility];[address] | | LABORATORY | | | | [address];[place] | | | | | | [address] | | | | + + + + + + + + | Specimen | + + | | + + + + + + + | Performing | Address | City/State/Zipcode | Phone Number | | Organization | | | | + + + + + | [facility] | [address] | [place] [address] | [phone] | + + + + + POC Glucose (01/01/2020 6:29 AM PDT) + + + + + + | Component | Value | Ref Range | Performed | Pathologist | | | | | At | Signature | + + + + + + | Glucose, | 143 (H)Comment: Testing | 65 - 99 mg/dL | [facility] | | | POC | performed at [facility];[address] | | LABORATORY | | | | [address];[place] | | | | | | [address] | | | | + + + + + + + + | Specimen | + + | | + + + + + + + | Performing | Address | City/State/Zipcode | Phone Number | | Organization | | | | + + + + + | [facility] | [address] | [place] [address] | [phone] | + + + + + Basic [...] | 8.6 | 8.5 - 10.5 | [facility] | | | | | mg/dL | LABORATORY | | + + + + + + | Estimated | 23 (L)Comment: GFR <60: | >60 | [facility] | | | GFR | CHRONIC KIDNEY [...] performed at [facility];[address] | | | | | | [facility];[place], [place] | | | | | | [address] | | | | + + + + + + + + | Specimen | + + | Blood | + + + + + + + | Performing | Address | City/State/Zipcode | Phone Number | | Organization | | | | + + + + + | [facility] | [address] | [place] [address] | [phone] | + + + + + CBC [...] | | | Absolute | performed at [facility];[address] | K/uL | LABORATORY | | | | [address];[place] | | | | | | [address] | | | | + + + + + + + + | Specimen | + + | Blood | + + + + + + + | Performing | Address | City/State/Zipcode | Phone Number | | Organization | | | | + + + + + | [facility] | [address] | [place] [address] | [phone] | + + + + + POC [...] | | | POC | performed at [facility];[address] | | LABORATORY | | | | [address];[place] | | | | | | [address] | | | | + + + + + + + + | Specimen | + + | | + + + + + + + | Performing | Address | City/State/Zipcode | Phone Number | | Organization | | | | + + + + + | [facility] | [address] | [place] [address] | [phone] | + + + + + POC [...] | | | POC | performed at [facility];[address] | | LABORATORY | | | | [address];[place], [place] | | | | | | [address] | | | | + + + + + + + + | Specimen | + + | | + + + + + + + | Performing | Address | City/State/Zipcode | Phone Number | | Organization | | | | + + + + + | [facility] | [address] [facility] | [place] [address] | [phone] | + + + + + POC [...] | | | POC | performed at [facility];[address] | | LABORATORY | | | | [address];[place], [place] | | | | | | [address] | | | | + + + + + + + + | Specimen | + + | | + + + + + + + | Performing | Address | City/State/Zipcode | Phone Number | | Organization | | | | + + + + + | [facility] | [address] | [place] [address] | [phone] | + + + + + POC [...] | | | POC | performed at [facility];[address] | | LABORATORY | | | | [address];[place] | | | | | | [address] | | | | + + + + + + + + | Specimen | + + | | + + + + + + + | Performing | Address | City/State/Zipcode | Phone Number | | Organization | | | | + + + + + | [facility] | [address] | [place] [address] | [phone] | + + + + + Basic [...] | 8.5 | 8.5 - 10.5 | [facility] | | | | | mg/dL | LABORATORY | | + + + + + + | Estimated | 18 (L)Comment: GFR <60: | >60 | [facility] | | | GFR | CHRONIC KIDNEY [...] | | | | | performed at [facility], [address] | | | | | | [facility], | | | | | | [place] [address] | | | | + + + + + + + + | Specimen | + + | Blood | + + + + + + + | Performing | Address | City/State/Zipcode | Phone Number | | Organization | | | | + + + + + | [facility] | [address] | [place] [address] | [phone] | + + + + + CBC [...] | | | Absolute | performed at [facility], [address] | K/uL | LABORATORY | | | | [address], | | | | | | [place] [address] | | | | + + + + + + + + | Specimen | + + | Blood | + + + + + + + | Performing | Address | City/State/Zipcode | Phone Number | | Organization | | | | + + + + + | [facility] | [address] [facility] [address] [facility] | [place] [address] | [phone] | + + + + + POC Glucose (12/30/2019 8:55 PM PDT) + + + + + + | Component | Value | Ref Range | Performed | Pathologist | | | | | At | Signature | + + + + + + | Glucose, | 192 (H)Comment: Testing | 65 - 99 mg/dL | [facility] | | | POC | performed at [facility];[address] | | LABORATORY | | | | [address];[place] | | | | | | [address] | | | | + + + + + + + + | Specimen | + + | | + + + + + + + | Performing | Address | City/State/Zipcode | Phone Number | | Organization | | | | + + + + + | [facility] | [address] | [place] [address] | [phone] | + + + + + POC Glucose (12/30/2019 4:11 PM PDT) + + + + + + | Component | Value | Ref Range | Performed | Pathologist | | | | | At | Signature | + + + + + + | Glucose, | 130 (H)Comment: Testing | 65 - 99 mg/dL | [facility] | | | POC | performed at [facility];[address] | | LABORATORY | | | | [address];[place], [place] | | | | | | [address] | | | | + + + + + + + + | Specimen | + + | | + + + + + + + | Performing | Address | City/State/Zipcode | Phone Number | | Organization | | | | + + + + + | [facility] | [address] | [place] [address] | [phone] | + + + + + POC [...] | | | POC | performed at [facility];[address] | | LABORATORY | | | | [address];[place] | | | | | | [address] | | | | + + + + + + + + | Specimen | + + | | + + + + + + + | Performing | Address | City/State/Zipcode | Phone Number | | Organization | | | | + + + + + | [facility] | [address] | [place] [address] | [phone] | + + + + + Basic [...] 20 (L)Comment: GFR <60: | >60 | [facility] | | | GFR | CHRONIC KIDNEY [...] | | | | | | [facility] traceable | | | | | | equation.Testing | | | | | | performed at [facility];[address] | | | | | | [facility];[place], [place] | | | | | | [address] | | | | + + + + + + + + | Specimen | + + | Blood | + + + + + + + | Performing | Address | City/State/Zipcode | Phone Number | | Organization | | | | + + + + + | [facility] | [address] | [place] [address] | [phone] | + + + + + POC [...] | | | POC | performed at [facility];[address] | | LABORATORY | | | | [address];[place], [place] | | | | | | [address] | | | | + + + + + + + + | Specimen | + + | | + + + + + + + | Performing | Address | City/State/Zipcode | Phone Number | | Organization | | | | + + + + + | [facility] | [address] | [place] [address] | [phone] | + + + + + CBC [...] | | | Absolute | performed at [facility];[address] | K/uL | LABORATORY | | | | [address];[place] | | | | | | [address] | | | | + + + + + + + + | Specimen | + + | Blood | + + + + + + + | Performing | Address | City/State/Zipcode | Phone Number | | Organization | | | | + + + + + | [facility] | [address] | [place] [address] | [phone] | + + + + + POC [...] | | | POC | performed at [facility];[address] | | LABORATORY | | | | [address];[place] | | | | | | [address] | | | | + + + + + + + + | Specimen | + + | | + + + + + + + | Performing | Address | City/State/Zipcode | Phone Number | | Organization | | | | + + + + + | [facility] | [address] | [place] [address] | [phone] | + + + + + Hemoglobin [...] Testing | 39.0 - 50.0 % | [facility] | | | | performed at [facility];[address] | | LABORATORY | | | | [address];[place] | | | | | | [address] | | | | + + + + + + + + | Specimen | + + | Blood | + + + + + + + | Performing | Address | City/State/Zipcode | Phone Number | | Organization | | | | + + + + + | [facility] | [address] | [place] [address] | [phone] | + + + + + POC [...] | | | POC | performed at [facility];[address] | | LABORATORY | | | | [address];[place], [place] | | | | | | [address] | | | | + + + + + + + + | Specimen | + + | | + + + + + + + | Performing | Address | City/State/Zipcode | Phone Number | | Organization | | | | + + + + + | [facility] | [address] | [place] [address] | [phone] | + + + + + Hemoglobin [...] CORDELL | | | | performed at [facility];[address] | | LABORATORY | | | | [address];[place] | | | | | | [address] | | | | + + + + + + + + | Specimen | + + | Blood | + + + + + + + | Performing | Address | City/State/Zipcode | Phone Number | | Organization | | | | + + + + + | [facility] | [address] | [place] [address] | [phone] | + + + + + POC [...] | | | POC | performed at [facility];[address] | | LABORATORY | | | | [address];[place], [place] | | | | | | [address] | | | | + + + + + + + + | Specimen | + + | | + + + + + + + | Performing | Address | City/State/Zipcode | Phone Number | | Organization | | | | + + + + + | [facility] | [address] | [place] [address] | [phone] | + + + + + POC Glucose (12/29/2019 11:06 AM PDT) + + + + + + | Component | Value | Ref Range | Performed | Pathologist | | | | | At | Signature | + + + + + + | Glucose, | 205 (H)Comment: Testing | 65 - 99 mg/dL | [facility] | | | POC | performed at [facility];[address] | | LABORATORY | | | | [address];[place] | | | | | | [address] | | | | + + + + + + + + | Specimen | + + | | + + + + + + + | Performing | Address | City/State/Zipcode | Phone Number | | Organization | | | | + + + + + | [facility] | [address] | [place] [address] | [phone] | + + + + + Surgical [...] | | technical component was performed by [facility], [address] [place] [address] | | | [place] [address] ([employer]ch[employer]: Padmini Sellers MD; CLIA# | | | [id number]). Professional interpretation was performed [facility] | | | [employer], [address], | | | [place] [address] ([employer]chandiser: Oscar Maynard M.D.; CLIA#: | | | [id number]). Diagnostician: Padmini Sellers | | | MDPathologistElectronically [...] | |The technical component was performed by [facility], [address] [place] [address] ([employer]ch[employer]: Padmini Sellers MD; CLIA# [id number]). Professional interpretation was performed by | | |[facility], [address] [address] ([employer]ch[employer]: Oscar Maynard M.D.; CLIA#: [id number]). | | | | | |Diagnostician: Padmini [...] At | + + + | [facility] | [facility] | | Betsy Johnson [facility] | PROVATION | | CenterGastroenterology | | | Patient Name: Andres Guzmán | | | Procedure Date: 12/29/2019 8:36 AMMRN: [id number] | | | of : 1930 | [...] the anesthesiologist and the | | | emissions technician in the pre-procedure area in the [...] | | | with Gold probe 7 Palauan x 5 pulses was successful with | [...] [facility] | | | | performed at [facility];888 | | LABORATORY | | | | Rosalia Mccain;[place] | | | | | | [address] | | | | + + + + + + + + | Specimen | + + | Blood | + + + + + + + | Performing | Address | City/State/Zipcode | Phone Number | | Organization | | | | + + + + + | [facility] | [address] | [place] [address] | [phone] | + + + + + POC Glucose (12/29/2019 6:06 AM PDT) + + + + + + | Component | Value | Ref Range | Performed | Pathologist | | | | | At | Signature | + + + + + + | Glucose, | 146 (H)Comment: Testing | 65 - 99 mg/dL | [facility] | | | POC | performed at [facility];888 | | LABORATORY | | | | Rosalia Mccain;[place] | | | | | | [address] | | | | + + + + + + + + | Specimen | + + | | + + + + + + + | Performing | Address | City/State/Zipcode | Phone Number | | Organization | | | | + + + + + | [facility] | [address] | [place] [address] | [phone] | + + + + + CBC [...] | | | Absolute | performed at [facility];[address] | K/uL | LABORATORY | | | | Rosalia Mccain;[place] | | | | | | [address] | | | | + + + + + + + + | Specimen | + + | Blood | + + + + + + + | Performing | Address | City/State/Zipcode | Phone Number | | Organization | | | | + + + + + | [facility] | [address] | [place] [address] | [phone] | + + + + + Shine [...] [place];[address] | | | | | | [address] [facility];[place], [place] | | | | | | [address] | | | | + + + + + + + + | Specimen | + + | Blood | + + + + + + + | Performing | Address | City/State/Zipcode | Phone Number | | Organization | | | | + + + + + | [facility] | [address] | [place] [address] | [phone] | + + + + + Basic [...] [place];[address] | | | | | | [facility];[place], [place] | | | | | | [address] | | | | + + + + + + + + | Specimen | + + | Blood | + + + + + + + | Performing | Address | City/State/Zipcode | Phone Number | | Organization | | | | + + + + + | [facility] | [address] [facility] | [place] [address] | [phone] | + + + + + POC [...] | | | POC | performed at [facility];888 | | LABORATORY | | | | Rosalia Mccain;[place], [place] | | | | | | [address] | | | | + + + + + + + + | Specimen | + + | | + + + + + + + | Performing | Address | City/State/Zipcode | Phone Number | | Organization | | | | + + + + + | [facility] | [address] | [place] [address] | [phone] | + + + + + Hemoglobin and Hematocrit (12/28/2019 10:33 PM PDT) + + + + + + | Component | Value | Ref Range | Performed | Pathologist | | | | | At | Signature | + + + + + + | Hemoglobin | 9.1 (L) | 13.2 - 17.0 | [facility] | | | | | g/dL | LABORATORY | | + + + + + + | Hematocrit | 26.6 (L)Comment: Testing | 39.0 - 50.0 % | [facility] | | | | performed at [facility];888 | | LABORATORY | | | | Rosalia Mccain;[place] | | | | | | [address] | | | | + + + + + + + + | Specimen | + + | Blood | + + + + + + + | Performing | Address | City/State/Zipcode | Phone Number | | Organization | | | | + + + + + | [facility] | [address] | [place] [address] | [phone] | + + + + + POC [...] | | | POC | performed at [facility];888 | | LABORATORY | | | | Rosalia Mccain;[place] | | | | | | [address] | | | | + + + + + + + + | Specimen | + + | | + + + + + + + | Performing | Address | City/State/Zipcode | Phone Number | | Organization | | | | + + + + + | [facility] | [address] | [place] [address] | [phone] | + + + + + Fecal [...] | | LABORATORY | | | | [facility];[address] | | | | [address];[place] [address] | | | | + + + + + + + + | Specimen | + + | Stool - Stool | | specimen (specimen) | + + + + + + + | Performing | Address | City/State/Zipcode | Phone Number | | Organization | | | | + + + + + | [facility] | [address] | [place] [address] | [phone] | + + + + + POC [...] | | | POC | performed at [facility];888 | | LABORATORY | | | | Rosalia Mccain;[place] | | | | | | [address] | | | | + + + + + + + + | Specimen | + + | | + + + + + + + | Performing | Address | City/State/Zipcode | Phone Number | | Organization | | | | + + + + + | [facility] | [address] | [place] [address] | [phone] | + + + + + Hemoglobin [...] [facility] | | | | performed at [facility];888 | | LABORATORY | | | | [address];[place] | | | | | | [address] | | | | + + + + + + + + | Specimen | + + | Blood | + + + + + + + | Performing | Address | City/State/Zipcode | Phone Number | | Organization | | | | + + + + + | [facility] | [address] | [place] [address] | [phone] | + + + + + POC Glucose (12/28/2019 11:59 AM PDT) + + + + + + | Component | Value | Ref Range | Performed | Pathologist | | | | | At | Signature | + + + + + + | Glucose, | 163 (H)Comment: Testing | 65 - 99 mg/dL | [facility] | | | POC | performed at [facility];888 | | LABORATORY | | | | Rosalia Mccain;[place] | | | | | | [address] | | | | + + + + + + + + | Specimen | + + | | + + + + + + + | Performing | Address | City/State/Zipcode | Phone Number | | Organization | | | | + + + + + | [facility] | [address] | [place] [address] | [phone] | + + + + + POC [...] | | | POC | performed at [facility];888 | | LABORATORY | | | | [address];[place], [place] | | | | | | [address] | | | | + + + + + + + + | Specimen | + + | | + + + + + + + | Performing | Address | City/State/Zipcode | Phone Number | | Organization | | | | + + + + + | [facility] | [address] | [place] [address] | [phone] | + + + + + CBC [...] | | | Absolute | performed at [facility], [address] | K/uL | LABORATORY | | | | [address]cc[address], | | | | | | [place] [address] | | | | + + + + + + + + | Specimen | + + | Blood | + + + + + + + | Performing | Address | City/State/Zipcode | Phone Number | | Organization | | | | + + + + + | [facility] | [address] | [place] [address] | [phone] | + + + + + Basic [...] | | | | | performed at [facility], [address] | | | | | | [facility], | | | | | | [place] [address] | | | | + + + + + + + + | Specimen | + + | Blood | + + + + + + + | Performing | Address | City/State/Zipcode | Phone Number | | Organization | | | | + + + + + | [facility] | [address] | [place] [address] | [phone] | + + + + + POC [...] | | | POC | performed at [facility];[address] | | LABORATORY | | | | [address];[place], [place] | | | | | | [address] | | | | + + + + + + + + | Specimen | + + | | + + + + + + + | Performing | Address | City/State/Zipcode | Phone Number | | Organization | | | | + + + + + | [facility] | [address] | [place] [address] | [phone] | + + + + + POC [...] | | | POC | performed at [facility];[address] | | LABORATORY | | | | [address];[place] | | | | | | [address] | | | | + + + + + + + + | Specimen | + + | | + + + + + + + | Performing | Address | City/State/Zipcode | Phone Number | | Organization | | | | + + + + + | [facility] | [address] | [place] [address] | [phone] | + + + + + Red [...] | [facility] | | | COMMENT | [facility];[address] | | LABORATORY | | | | [address];[place] [address] | | | | + + + + + + + + | Specimen | + + | | + + + + + + + | Performing | Address | City/State/Zipcode | Phone Number | | Organization | | | | + + + + + | [facility] | [address] | [place] [address] | [phone] | + + + + + Type [...] + + + | BB BAND | [id number] | | [facility] | | | | | | LABORATORY | | + + + + + + | UNIT # | [id number] | | [facility] | | | | [...] + + + | UNIT # | [id number] | | [facility] | | | | [...] | | | RESULT | performed at [facility];[address] | | LABORATORY | | | | [address];[place], [place] | | | | | | [address] | | | | + + + + + + + + | Specimen | + + | Blood | + + + + + + + | Performing | Address | City/State/Zipcode | Phone Number | | Organization | | | | + + + + + | [facility] | [address] | [place] [address] | [phone] | + + + + + POC [...] | | | POC | performed at [facility];888 | | LABORATORY | | | | [address]cc[address];[place], [place] | | | | | | [address] | | | | + + + + + + + + | Specimen | + + | | + + + + + + + | Performing | Address | City/State/Zipcode | Phone Number | | Organization | | | | + + + + + | [facility] | [address] | [place] [address] | [phone] | + + + + + CBC [...] Kalyn, | | | | | | [place] [address] | | | | + + + + + + + + | Specimen | + + | | + + + + + + + | Performing | Address | City/State/Zipcode | Phone Number | | Organization | | | | + + + + + | [facility] | [address] | [place] [address] | [phone] | + + + + + Procalcitonin [...] | | | | | | at [facility];[address] [place] [address] | | | | | | [facility];[place] [address] | | | | + + + + + + + + | Specimen | + + | Blood | + + + + + + + | Performing | Address | City/State/Zipcode | Phone Number | | Organization | | | | + + + + + | [facility] | [address] | [place] [address] | [phone] | + + + + + Basic [...] | | | | | | [facility] traceable | | | | | | equation.Testing | | | | | | performed at [facility], [address] | | | | | | [facility], | | | | | | [place] [address] | | | | + + + + + + + + | Specimen | + + | Blood | + + + + + + + | Performing | Address | City/State/Zipcode | Phone Number | | Organization | | | | + + + + + | [facility] | [address] | [place] [address] | [phone] | + + + + + Vitamin D, Deficiency Screen (25-Hydroxy) (12/27/2019 5:04 AM PDT) + + + + + + | Component | Value | Ref Range | Performed | Pathologist | | | | | At | Signature | + + + + + + | Vit D, | 25.2 (L)Comment: Vitamin | 30.0 - 100.0 | [facility] | | | 25-Hydroxy | D deficiency has been | ng/mL | LABORATORY | | | | defined by the [facility] | | | | | | [facility] and an | | | | [...] IOM | | | | | | ([facility]). | | | | | [...] | | | | | performed at [facility], | | | | | | [address], | | | | | | [facility] [address] | | | | + + + + + + + + | Specimen | + + | Blood | + + + + + + + | Performing | Address | City/State/Zipcode | Phone Number | | Organization | | | | + + + + + | [facility] | [address] | [place] [address] | [phone] | + + + + + Potassium (12/27/2019 12:08 AM PDT) + + + + + + | Component | Value | Ref Range | Performed | Pathologist | | | | | At | Signature | + + + + + + | K | 4.0Comment: Testing | 3.5 - 4.9 | [facility] | | | | performed at [facility];888 | mmol/L | LABORATORY | | | | [address];[place] | | | | | | [address] | | | | + + + + + + + + | Specimen | + + | Blood | + + + + + + + | Performing | Address | City/State/Zipcode | Phone Number | | Organization | | | | + + + + + | [facility] | [address] | [place] [address] | [phone] | + + + + + Magnesium (12/27/2019 12:08 AM PDT) + + + + + + | Component | Value | Ref Range | Performed | Pathologist | | | | | At | Signature | + + + + + + | Magnesium | 2.2Comment: Testing | 1.7 - 2.4 mg/dL | [facility] | | | | performed at [facility];[address] | | LABORATORY | | | | [address]cc[address];[place] | | | | | | [address] | | | | + + + + + + + + | Specimen | + + | Blood | + + + + + + + | Performing | Address | City/State/Zipcode | Phone Number | | Organization | | | | + + + + + | [facility] | [address] | [place] [address] | [phone] | + + + + + ECG [...] | | | | | YANIV ROONEY ([id number]) | | | | | | on [...] | | | POC | performed at [facility];[address] | | LABORATORY | | | | [address]cc[address];[place] | | | | | | [address] | | | | + + + + + + + + | Specimen | + + | | + + + + + + + | Performing | Address | City/State/Zipcode | Phone Number | | Organization | | | | + + + + + | [facility] | [address] | [place] [address] | [phone] | + + + + + POC Glucose (12/26/2019 5:02 PM PDT) + + + + + + | Component | Value | Ref Range | Performed | Pathologist | | | | | At | Signature | + + + + + + | Glucose, | 154 (H)Comment: Testing | 65 - 99 mg/dL | [facility] | | | POC | performed at [facility];[address] | | LABORATORY | | | | [address];[place], [place] | | | | | | [address] | | | | + + + + + + + + | Specimen | + + | | + + + + + + + | Performing | Address | City/State/Zipcode | Phone Number | | Organization | | | | + + + + + | [facility] | [address] | [place] [address] | [phone] | + + + + + Complement [...] | | | COMPLEMENT | performed at [facility], | | LABORATORY | | | | [address], | | | | | | [place] [address] | | | | + + + + + + + + | Specimen | + + | | + + + + + + + | Performing | Address | City/State/Zipcode | Phone Number | | Organization | | | | + + + + + | [facility] | [address] | [place] [address] | [phone] | + + + + + Complement C3 Ag (12/26/2019 12:33 PM PDT) + + + + + + | Component | Value | Ref Range | Performed | Pathologist | | | | | At | Signature | + + + + + + | C3 | 53 (L)Comment: Testing | 82 - 167 mg/dL | [facility] | | | COMPLEMENT | performed at [facility], | | LABORATORY | | | | [address], | | | | | | [facility] [address] | | | | + + + + + + + + | Specimen | + + | | + + + + + + + | Performing | Address | City/State/Zipcode | Phone Number | | Organization | | | | + + + + + | [facility] | [address] | [place] [address] | [phone] | + + + + + POC Glucose (12/26/2019 11:15 AM PDT) + + + + + + | Component | Value | Ref Range | Performed | Pathologist | | | | | At | Signature | + + + + + + | Glucose, | 161 (H)Comment: Testing | 65 - 99 mg/dL | [facility] | | | POC | performed at [facility];[address] | | LABORATORY | | | | [address];[place], [place] | | | | | | [address] | | | | + + + + + + + + | Specimen | + + | | + + + + + + + | Performing | Address | City/State/Zipcode | Phone Number | | Organization | | | | + + + + + | [facility] | [address] | [place] [address] | [phone] | + + + + + POC [...] | | | POC | performed at [facility];[address] | | LABORATORY | | | | [address];[place], [place] | | | | | | [address] | | | | + + + + + + + + | Specimen | + + | | + + + + + + + | Performing | Address | City/State/Zipcode | Phone Number | | Organization | | | | + + + + + | [facility] | [address] | [place] [address] | [phone] | + + + + + Parathyroid Hormone, Intraoperative (12/26/2019 4:25 AM PDT) + + + + + + | Component | Value | Ref Range | Performed | Pathologist | | | | | At | Signature | + + + + + + | PTH Intact | 167.0 (H)Comment: | 8.7 - 79.6 | [facility] | | | | Testing performed at | pg/mL | LABORATORY | | | | [facility];[address] | | | | | [address];[place] [address] | | | | + + + + + + + + | Specimen | + + | | + + + + + + + | Performing | Address | City/State/Zipcode | Phone Number | | Organization | | | | + + + + + | [facility] | [address] | [place] [address] | [phone] | + + + + + Renal [...] 13 (L)Comment: GFR <60: | >60 | [facility] | | | GFR | CHRONIC KIDNEY [...] | | | | | performed at [facility], [address] | | | | | | [facility], | | | | | | [place] [address] | | | | + + + + + + + + | Specimen | + + | Blood | + + + + + + + | Performing | Address | City/State/Zipcode | Phone Number | | Organization | | | | + + + + + | [facility] | [address] | [place] [address] | [phone] | + + + + + POC Glucose (12/25/2019 8:53 PM PDT) + + + + + + | Component | Value | Ref Range | Performed | Pathologist | | | | | At | Signature | + + + + + + | Glucose, | 169 (H)Comment: Testing | 65 - 99 mg/dL | [facility] | | | POC | performed at [facility];[address] | | LABORATORY | | | | [address];[place] | | | | | | [address] | | | | + + + + + + + + | Specimen | + + | | + + + + + + + | Performing | Address | City/State/Zipcode | Phone Number | | Organization | | | | + + + + + | [facility] | [address] | [place] [address] | [phone] | + + + + + POC Glucose (12/25/2019 5:13 PM PDT) + + + + + + | Component | Value | Ref Range | Performed | Pathologist | | | | | At | Signature | + + + + + + | Glucose, | 133 (H)Comment: Testing | 65 - 99 mg/dL | [facility] | | | POC | performed at [facility];[address] | | LABORATORY | | | | [address];[place] | | | | | | [address] | | | | + + + + + + + + | Specimen | + + | | + + + + + + + | Performing | Address | City/State/Zipcode | Phone Number | | Organization | | | | + + + + + | [facility] | [address] | [place] [address] | [phone] | + + + + + ECHO [...] | | | POC | performed at [facility];[address] | | LABORATORY | | | | [address];[place], [place] | | | | | | [address] | | | | + + + + + + + + | Specimen | + + | | + + + + + + + | Performing | Address | City/State/Zipcode | Phone Number | | Organization | | | | + + + + + | [facility] | [address] | [place] [address] | [phone] | + + + + + POC [...] | | | POC | performed at [facility];[address] | | LABORATORY | | | | [address];[place] | | | | | | [address] | | | | + + + + + + + + | Specimen | + + | | + + + + + + + | Performing | Address | City/State/Zipcode | Phone Number | | Organization | | | | + + + + + | [facility] | [address] | [place] [address] | [phone] | + + + + + CK Total (12/25/2019 4:25 AM PDT) + + + + + + | Component | Value | Ref Range | Performed | Pathologist | | | | | At | Signature | + + + + + + | CK TOTAL | 104Comment: Testing | 55 - 400 U/L | [facility] | | | | performed at [facility];[address] | | LABORATORY | | | | [address];[place] | | | | | | [address] | | | | + + + + + + + + | Specimen | + + | Blood | + + + + + + + | Performing | Address | City/State/Zipcode | Phone Number | | Organization | | | | + + + + + | [facility] | [address] | [place] [address] | [phone] | + + + + + Renal [...] 13 (L)Comment: GFR <60: | >60 | [facility] | | | GFR | CHRONIC KIDNEY [...] | | | | | performed at [facility], [address] | | | | | | [facility], | | | | | | [place] [address] | | | | + + + + + + + + | Specimen | + + | Blood | + + + + + + + | Performing | Address | City/State/Zipcode | Phone Number | | Organization | | | | + + + + + | [facility] | [address] | [place] [address] | [phone] | + + + + + Cytoplasmic [...] | | | | | | [address] [facility], | | | | | | [facility] [address] | | | | + + + + + + + + | Specimen | + + | Blood | + + + + + + + | Performing | Address | City/State/Zipcode | Phone Number | | Organization | | | | + + + + + | [facility] | [address] | [place] [address] | [phone] | + + + + + Sedimentation [...] | | | | | [place] [address] | | | | + + + + + + + + | Specimen | + + | Blood | + + + + + + + | Performing | Address | City/State/Zipcode | Phone Number | | Organization | | | | + + + + + | [facility] | [address] | [place] [address] | [phone] | + + + + + Immunoglobulin, Free Light Chain (12/25/2019 4:22 AM PDT) + + + + + + | Component | Value | Ref Range | Performed | Pathologist | | | | | At | Signature | + + + + + + | Peyton Free | 121.2 (H) | 3.3 - [...] + + + + + + | Peyton/Lambd | 1.25Comment: Testing | 0.26 - 1.65 | [facility] | | | a Free | performed at [facility] | | LABORATORY | | | Light Chain | [place], [address] | | | | | Ratio | [place] [address] | | | | + + + + + + + + | Specimen | + + | Blood | + + + + + + + | Performing | Address | City/State/Zipcode | Phone Number | | Organization | | | | + + + + + | [facility] | [address] | [place] [address] | [phone] | + + + + + Glomerular [...] [place] | | | | | | [address] | | | | + + + + + + + + | Specimen | + + | Blood | + + + + + + + | Performing | Address | City/State/Zipcode | Phone Number | | Organization | | | | + + + + + | [facility] | [address] | [place] [address] | [phone] | + + + + + Hepatitis [...] | | | | | | 0.9The [facility] recommends | | | | | | that a positive HCV | | | | | | antibody resultbe | | | | | | followed up with a HCV | | | | | | Nucleic Acid | | | | | | Amplificationtest | | | | | | ([id number]).Testing | | | | | | performed at [facility], | | | | | | [address], | | | | | | [facility] [address] | | | | + + + + + + + + | Specimen | + + | Blood | + + + + + + + | Performing | Address | City/State/Zipcode | Phone Number | | Organization | | | | + + + + + | [facility] | [address] | [place] [address] | [phone] | + + + + + CK Total (12/25/2019 4:22 AM PDT) + + + + + + | Component | Value | Ref Range | Performed | Pathologist | | | | | At | Signature | + + + + + + | CK TOTAL | 100Comment: Testing | 55 - 400 U/L | [facility] | | | | performed at [facility];[address] | | LABORATORY | | | | [address];[place], [place] | | | | | | [address] | | | | + + + + + + + + | Specimen | + + | Blood | + + + + + + + | Performing | Address | City/State/Zipcode | Phone Number | | Organization | | | | + + + + + | [facility] | [address] | [place] [address] | [phone] | + + + + + Lactate Dehydrogenase (12/25/2019 4:22 AM PDT) + + + + + + | Component | Value | Ref Range | Performed | Pathologist | | | | | At | Signature | + + + + + + | LDH TOTAL | 154Comment: Testing | 120 - 246 U/L | [facility] | | | | performed at [facility];[address] | | LABORATORY | | | [address];[place] | | | | | | [address] | | | | + + + + + + + + | Specimen | + + | Blood | + + + + + + + | Performing | Address | City/State/Zipcode | Phone Number | | Organization | | | | + + + + + | [facility] | [address] | [place] [address] | [phone] | + + + + + Magnesium (12/25/2019 4:22 AM PDT) + + + + + + | Component | Value | Ref Range | Performed | Pathologist | | | | | At | Signature | + + + + + + | Magnesium | 2.5 (H)Comment: Testing | 1.7 - 2.4 mg/dL | [facility] | | | | performed at [facility], [address] | | LABORATORY | | | | [address], | | | | | | [place] [address] | | | | + + + + + + + + | Specimen | + + | Blood | + + + + + + + | Performing | Address | City/State/Zipcode | Phone Number | | Organization | | | | + + + + + | [facility] | [address] | [place] [address] | [phone] | + + + + + Protein, [...] LABORATORY | | | | performed at [facility], [address] | | | | | [address], | | | | | | [place] [address] | | | | + + + + + + + + | Specimen | + + | | + + + + + + + | Performing | Address | City/State/Zipcode | Phone Number | | Organization | | | | + + + + + | [facility] | [address] | [place] [address] | [phone] | + + + + + Creatinine, Urine, Random (12/25/2019 12:01 AM PDT) + + + + + + | Component | Value | Ref Range | Performed | Pathologist | | | | | At | Signature | + + + + + + | Creatinine, | 139.0Comment: NO NORMAL | mg/dL | [facility] | | | random | [facility] ESTABLISHEDTesting | | LABORATORY | | | urine | performed at [facility], [address] | | | | | | [address], | | | | | | [place] [address] | | | | + + + + + + + + | Specimen | + + | | + + + + + + + | Performing | Address | City/State/Zipcode | Phone Number | | Organization | | | | + + + + + | [facility] | [address] | [place] [address] | [phone] | + + + + + Protein/Creatinine Ratio, Urine (12/25/2019 12:01 AM PDT) + + + + + + | Component | Value | Ref Range | Performed | Pathologist | | | | | At | Signature | + + + + + + | PRO/CREA | 0.942Comment: Testing | | [facility] | | | RATIO,URINE | performed at [facility], [address] | | LABORATORY | | | | [address], | | | | | | [place] [address] | | | | + + + + + + + + | Specimen | + + | Urine | + + + + + + + | Performing | Address | City/State/Zipcode | Phone Number | | Organization | | | | + + + + + | [facility] | [address] | [place] [address] | [phone] | + + + + + POC [...] | | | POC | performed at [facility];[address] | | LABORATORY | | | | [address];[place], [place] | | | | | | [address] | | | | + + + + + + + + | Specimen | + + | | + + + + + + + | Performing | Address | City/State/Zipcode | Phone Number | | Organization | | | | + + + + + | [facility] | [address] | [place] [address] | [phone] | + + + + + POC [...] | | | POC | performed at [facility];[address] | | LABORATORY | | | | [address];[place], [place] | | | | | | [address] | | | | + + + + + + + + | Specimen | + + | | + + + + + + + | Performing | Address | City/State/Zipcode | Phone Number | | Organization | | | | + + + + + | [facility] | [address] | [place] [address] | [phone] | + + + + + ECG [...] | | | Arterial, | performed at [facility];[address] | | LABORATORY | | | POC | [address];[place], [place] | | | | | | [address] | | | | + + + + + + + + | Specimen | + + | | + + + + + + + | Performing | Address | City/State/Zipcode | Phone Number | | Organization | | | | + + + + + | [facility] | [address] | [place] [address] | [phone] | + + + + + Coronavirus (COVID-19) NAAT (12/24/2019 1:10 PM PDT) + + + + + + | Component | Value | Ref Range | Performed | Pathologist | | | | | At | Signature | + + + + + + | SARS-CoV-2, | NEGATIVEComment: Testing | NEG | [facility] | | | NAAT | performed at [facility];[address] | | LABORATORY | | | (COVID-19) | [address];[place] | | | | | | [address] | | | | + + + + + + + + | Specimen | + + | Tissue - Entire | | nasopharynx (body | | structure) | + + + + + + + | Performing | Address | City/State/Zipcode | Phone Number | | Organization | | | | + + + + + | [facility] | [address] | [place] [address] | [phone] | + + + + + Culture, [...] | | LABORATORY | | | | Blvd;[place] [address] | | | | + + + + + + | RESULT | NO GROWTH 6 DAYS | | [facility] | | | | | | LABORATORY | | + + + + + + | RESULT | Testing performed at | | [facility] | | | | TCL, [address] | | LABORATORY | | | | [place], [place] | | | | | | [id number]: Testing | | | | | | performed at [facility], [address] | | | | | | [address], [place], [place] | | | | | | [address] | | | | + + + + + + + + | Specimen | + + | Blood - Peripheral | | blood specimen | | (specimen) | + + + + + + + | Performing | Address | City/State/Zipcode | Phone Number | | Organization | | | | + + + + + | [facility] | [address] | [place] [address] | [phone] | + + + + + Culture, [...] | [facility] | | | Requests | [facility];[address] | | LABORATORY | | | | [address];[place] [address] | | | | + + + + + + | RESULT | NO GROWTH 6 DAYS | | [facility] | | | | | | LABORATORY | | + + + + + + | RESULT | Testing performed at | | [facility] | | | | TCL, [address] | | LABORATORY | | | | [place], [place] | | | | | | [address]Jeawjgz: Testing | | | | | | performed at [facility], [address] | | | | | | [address], [place], [place] | | | | | | [address] | | | | + + + [...] [facility] | [address] | [place] [address] | [phone] | + + + + + Urinalysis [...] - 1.030 | [facility] | | | [place], | | | LABORATORY | | | [...] | 1+ (A)Comment: Testing | NONE | [facility] | | | Urine | performed at [facility], [address] | | LABORATORY | | | | [address], | | | | | | [place] [address] | | | | + + + [...] | + + + + + | [facility] | [address] | [place] [address] | [phone] | + + + + + Sodium, [...] | | | urine | performed at [facility], [address] | | | | | | [address], | | | | | | [place] [address] | | | | + + + [...] | + + + + + | [facility] | [address] | [place] [address] | [phone] | + + + + + Creatinine, Urine, Random (12/24/2019 12:45 PM PDT) + + + + + + | Component | Value | Ref Range | Performed | Pathologist | | | | | At | Signature | + + + + + + | Creatinine, | 70.0Comment: NO NORMAL | mg/dL | [facility] | | | random | RANGE ESTABLISHEDTesting | | LABORATORY | | | urine | performed at [facility], [address] | | | | | | [address], | | | | | | [place] [address] | | | | + + + [...] | + + + + + | [facility] | [address] | [place] [address] | [phone] | + + + + + Lactic Acid (12/24/2019 12:27 PM PDT) + + + + + + | Component | Value | Ref Range | Performed | Pathologist | | | | | At | Signature | + + + + + + | Lactate, | 1.6Comment: Testing | 0.4 - 2.0 | [facility] | | | Serum | performed at [facility];[address] | mmol/L | LABORATORY | | | | [address];[place], [place] | | | | | | [address] | | | | + + + + + + + + | Specimen | + + | Blood | + + + + + + + | Performing | Address | City/State/Zipcode | Phone Number | | Organization | | | | + + + + + | [facility] | [address] | [place] [address] | [phone] | + + + + + Procalcitonin (12/24/2019 12:27 PM PDT) + + + + + + | Component | Value | Ref Range | Performed | Pathologist | | | | | At | Signature | + + + + + + | PROCALCITON | 0.69 (H)Comment: | <0.5 ng/mL | [facility] | | | IN | INTERPRETIVE | [...] | | | | | | at [facility];[address] [place] [address] | | | | | | [facility];[place] [address] | | | | + + + + + + + + | Specimen | + + | Blood | + + + + + + + | Performing | Address | City/State/Zipcode | Phone Number | | Organization | | | | + + + + + | [facility] | [address] | [place] [address] | [phone] | + + + + + POC [...] | | | POC | performed at [facility];[address] | | LABORATORY | | | | [address];[place] | | | | | | [address] | | | | + + + + + + + + | Specimen | + + | | + + + + + + + | Performing | Address | City/State/Zipcode | Phone Number | | Organization | | | | + + + + + | [facility] | [address] | [place] [address] | [phone] | + + + + + POC [...] | | | POC | performed at [facility];[address] | | LABORATORY | | | | [address];[place], [place] | | | | | | [address] | | | | + + + + + + + + | Specimen | + + | | + + + + + + + | Performing | Address | City/State/Zipcode | Phone Number | | Organization | | | | + + + + + | [facility] | [address] | [place] [address] | [phone] | + + + + + CBC [...] LABORATORY | | | | performed at [facility];[address] | | | | | | [address];[place], [place] | | | | | | [address] | | | | + + + + + + + + | Specimen | + + | Blood | + + + + + + + | Performing | Address | City/State/Zipcode | Phone Number | | Organization | | | | + + + + + | [facility] | [address] | [place] [address] | [phone] | + + + + + Basic [...] | | | | | performed at [facility], [address] | | | | | | [facility], | | | | | | [place] [address] | | | | + + + + + + + + | Specimen | + + | Blood | + + + + + + + | Performing | Address | City/State/Zipcode | Phone Number | | Organization | | | | + + + + + | [facility] | [address] | [place] [address] | [phone] | + + + + + POC Glucose (12/23/2019 8:35 PM PDT) + + + + + + | Component | Value | Ref Range | Performed | Pathologist | | | | | At | Signature | + + + + + + | Glucose, | 135 (H)Comment: Testing | 65 - 99 mg/dL | [facility] | | | POC | performed at [facility];[address] | | LABORATORY | | | | [address];[place] | | | | | | [address] | | | | + + + + + + + + | Specimen | + + | | + + + + + + + | Performing | Address | City/State/Zipcode | Phone Number | | Organization | | | | + + + + + | [facility] | [address] | [place] [address] | [phone] | + + + + + POC [...] | | | POC | performed at [facility];[address] | | LABORATORY | | | | [address];[place], [place] | | | | | | [address] | | | | + + + + + + + + | Specimen | + + | | + + + + + + + | Performing | Address | City/State/Zipcode | Phone Number | | Organization | | | | + + + + + | [facility] | [address] | [place] [address] | [phone] | + + + + + POC [...] | | | POC | performed at [facility];[address] | | LABORATORY | | | | [address];[place] | | | | | | [address] | | | | + + + + + + + + | Specimen | + + | | + + + + + + + | Performing | Address | City/State/Zipcode | Phone Number | | Organization | | | | + + + + + | [facility] | [address] | [place] [address] | [phone] | + + + + + POC Glucose (12/23/2019 7:21 AM PDT) + + + + + + | Component | Value | Ref Range | Performed | Pathologist | | | | | At | Signature | + + + + + + | Glucose, | 122 (H)Comment: Testing | 65 - 99 mg/dL | [facility] | | | POC | performed at [facility];[address] | | LABORATORY | | | | [address];[place] | | | | | | [address] | | | | + + + + + + + + | Specimen | + + | | + + + + + + + | Performing | Address | City/State/Zipcode | Phone Number | | Organization | | | | + + + + + | [facility] | [address] | [place] [address] | [phone] | + + + + + Basic [...] [place];[address] | | | | | | [facility];[place], [place] | | | | | | [address] | | | | + + + + + + + + | Specimen | + + | Blood | + + + + + + + | Performing | Address | City/State/Zipcode | Phone Number | | Organization | | | | + + + + + | [facility] | [address] [facility] | [place] [address] | [phone] | + + + + + Phosphorus (12/23/2019 4:04 AM PDT) + + + + + + | Component | Value | Ref Range | Performed | Pathologist | | | | | At | Signature | + + + + + + | Phosphorus | 4.6Comment: Testing | 2.3 - 4.8 mg/dL | [facility] | | | | performed at [facility];[address] | | LABORATORY | | | | [facility];[place], [place] | | | | | | [address] | | | | + + + + + + + + | Specimen | + + | Blood | + + + + + + + | Performing | Address | City/State/Zipcode | Phone Number | | Organization | | | | + + + + + | [facility] | [address] | [place] [address] | [phone] | + + + + + Magnesium (12/23/2019 4:04 AM PDT) + + + + + + | Component | Value | Ref Range | Performed | Pathologist | | | | | At | Signature | + + + + + + | Magnesium | 2.1Comment: Testing | 1.7 - 2.4 mg/dL | [facility] | | | | performed at [facility];[address] | | LABORATORY | | | | [address];[place] | | | | | | [address] | | | | + + + + + + + + | Specimen | + + | Blood | + + + + + + + | Performing | Address | City/State/Zipcode | Phone Number | | Organization | | | | + + + + + | [facility] | [address] | [place] [address] | [phone] | + + + + + CBC [...] LABORATORY | | | | performed at [facility] | | | | | | [address];[place] | | | | | | [address] | | | | + + + + + + + + | Specimen | + + | Blood | + + + + + + + | Performing | Address | City/State/Zipcode | Phone Number | | Organization | | | | + + + + + | [facility] | [address] | [place] [address] | [phone] | + + + + + Hemoglobin (12/22/2019 9:37 PM PDT) + + + + + + | Component | Value | Ref Range | Performed | Pathologist | | | | | At | Signature | + + + + + + | Hemoglobin | 9.1 (L)Comment: Testing | 13.2 - 17.0 | [facility] | | | | performed at [facility];[address] | g/dL | LABORATORY | | | | [address];[place] | | | | | | [address] | | | | + + + + + + + + | Specimen | + + | Blood | + + + + + + + | Performing | Address | City/State/Zipcode | Phone Number | | Organization | | | | + + + + + | [facility] | [address] | [place] [address] | [phone] | + + + + + Hematocrit (12/22/2019 9:37 PM PDT) + + + + + + | Component | Value | Ref Range | Performed | Pathologist | | | | | At | Signature | + + + + + + | Hematocrit | 27.4 (L)Comment: Testing | 39.0 - 50.0 % | [facility] | | | | performed at [facility];[address] | | LABORATORY | | | | [address];[place] | | | | | | [address] | | | | + + + + + + + + | Specimen | + + | Blood | + + + + + + + | Performing | Address | City/State/Zipcode | Phone Number | | Organization | | | | + + + + + | [facility] | [address] | [place] [address] | [phone] | + + + + + POC [...] | | | POC | performed at [facility];[address] | | LABORATORY | | | | [address];[place] | | | | | | [address] | | | | + + + + + + + + | Specimen | + + | | + + + + + + + | Performing | Address | City/State/Zipcode | Phone Number | | Organization | | | | + + + + + | [facility] | [address] | [place] [address] | [phone] | + + + + + POC Glucose (12/22/2019 5:32 PM PDT) + + + + + + | Component | Value | Ref Range | Performed | Pathologist | | | | | At | Signature | + + + + + + | Glucose, | 153 (H)Comment: Testing | 65 - 99 mg/dL | [facility] | | | POC | performed at [facility];[address] | | LABORATORY | | | | [address];[place] | | | | | | [address] | | | | + + + + + + + + | Specimen | + + | | + + + + + + + | Performing | Address | City/State/Zipcode | Phone Number | | Organization | | | | + + + + + | [facility] | [address] | [place] [address] | [phone] | + + + + + Red [...] | [facility] | | | COMMENT | [facility];[address] | | LABORATORY | | | | Blvd;[place] [address] | | | | + + + + + + + + | Specimen | + + | | + + + + + + + | Performing | Address | City/State/Zipcode | Phone Number | | Organization | | | | + + + + + | [facility] | [address] | [place] [address] | [phone] | + + + + + POC Glucose (12/22/2019 10:38 AM PDT) + + + + + + | Component | Value | Ref Range | Performed | Pathologist | | | | | At | Signature | + + + + + + | Glucose, | 161 (H)Comment: Testing | 65 - 99 mg/dL | [facility] | | | POC | performed at [facility];[address] | | LABORATORY | | | | [address];[place], [place] | | | | | | [address] | | | | + + + + + + + + | Specimen | + + | | + + + + + + + | Performing | Address | City/State/Zipcode | Phone Number | | Organization | | | | + + + + + | [facility] | [address] | [place] [address] | [phone] | + + + + + NATHALIA [...] | | | POC | performed at [facility];[address] | g/dL | LABORATORY | | | | [address];[place], [place] | | | | | | [address] | | | | + + + + + + + + | Specimen | + + | | + + + + + + + | Performing | Address | City/State/Zipcode | Phone Number | | Organization | | | | + + + + + | [facility] | [address] | [place] [address] | [phone] | + + + + + POC [...] | | | POC | performed at [facility];[address] | g/dL | LABORATORY | | | | [address];[place], [place] | | | | | | [address] | | | | + + + + + + + + | Specimen | + + | | + + + + + + + | Performing | Address | City/State/Zipcode | Phone Number | | Organization | | | | + + + + + | [facility] | [address] | [place] [address] | [phone] | + + + + + POC [...] | | | POC | performed at [facility];888 | g/dL | LABORATORY | | | | [address];[place] | | | | | | [address] | | | | + + + + + + + + | Specimen | + + | | + + + + + + + | Performing | Address | City/State/Zipcode | Phone Number | | Organization | | | | + + + + + | [facility] | [address] | [place] [address] | [phone] | + + + + + POC [...] (L)Comment: Testing | 13.7 - 16.7 | [facility] | | | POC | performed at [facility];888 | g/dL | LABORATORY | | | | [address];[place], [place] | | | | | | [address] | | | | + + + + + + + + | Specimen | + + | | + + + + + + + | Performing | Address | City/State/Zipcode | Phone Number | | Organization | | | | + + + + + | [facility] | [address] | [place] [address] | [phone] | + + + + + Type [...] + + + | BB BAND | [id number] | | [facility] | | | | | | LABORATORY | | + + + + + + | UNIT # | [id number] | | [facility] | | | | [...] | | | RESULT | performed at [facility];[address] | | LABORATORY | | | | [address];[place], [place] | | | | | | [address] | | | | + + + + + + | UNIT # | [id number] | | [facility] | | | | [...] [facility] | [address] | [place] [address] | [phone] | + + + + + POC [...] | | | POC | performed at [facility];[address] | | LABORATORY | | | | [address];[place] | | | | | | [address] | | | | + + + + + + + + | Specimen | + + | | + + + + + + + | Performing | Address | City/State/Zipcode | Phone Number | | Organization | | | | + + + + + | [facility] | [address] | [place] [address] | [phone] | + + + + + Protime [...] [place];[address] | | | | | | [address];[place] | | | | | | [address] | | | | + + + + + + + + | Specimen | + + | Blood | + + + + + + + | Performing | Address | City/State/Zipcode | Phone Number | | Organization | | | | + + + + + | [facility] | [address] | [place] [address] | [phone] | + + + + + CBC [...] | | | | | [place] [address] | | | | + + + + + + + + | Specimen | + + | Blood | + + + + + + + | Performing | Address | City/State/Zipcode | Phone Number | | Organization | | | | + + + + + | [facility] | [address] | [place] [address] | [phone] | + + + + + Magnesium (12/22/2019 5:26 AM PDT) + + + + + + | Component | Value | Ref Range | Performed | Pathologist | | | | | At | Signature | + + + + + + | Magnesium | 2.6 (H)Comment: Testing | 1.7 - 2.4 mg/dL | [facility] | | | | performed at [facility], [address] | | LABORATORY | | | | [address], | | | | | | [place] [address] | | | | + + + + + + + + | Specimen | + + | Blood | + + + + + + + | Performing | Address | City/State/Zipcode | Phone Number | | Organization | | | | + + + + + | [facility] | [address] | [place] [address] | [phone] | + + + + + Basic [...] | | | | | performed at [facility], [address] | | | | | | [address], | | | | | | [place] [address] | | | | + + + + + + + + | Specimen | + + | Blood | + + + + + + + | Performing | Address | City/State/Zipcode | Phone Number | | Organization | | | | + + + + + | [facility] | [address] | [place] [address] | [phone] | + + + + + POC [...] | | | POC | performed at [facility];[address] | LAB[address]AT[address] | | | | [address];[place], [place] | | | | | | [address] | | | | + + + + + + + + | Specimen | + + | | + + + + + + + | Performing | Address | City/State/Zipcode | Phone Number | | Organization | | | | + + + + + | [facility] | [address] | [place] [address] | [phone] | + + + + + POC [...] | | | POC | performed at [facility];[address] | [address] | | | | [address];[place] | | | | | | [address] | | | | + + + + + + + + | Specimen | + + | | + + + + + + + | Performing | Address | City/State/Zipcode | Phone Number | | Organization | | | | + + + + + | [facility] | [address] | [place] [address] | [phone] | + + + + + documented [...] | | | | | Starting [facility] 12/26/19 at 1637 | | | [...] | | | | | | | [id number] Use NIGHT DOSE for | | | | | | | doses scheduled: HS, | | | | | | | Nighttime [id number] If the BG is | | | [...]
--- OUTSIDE RECORDS SUMMARY | ~2020-03-05 | XMS | Encounter Summary ---
Demographics + + + | Address | [address] | | | [place] [address] | + + + | Home Phone [...] [place] | | | | | [address] | | + + + + + | Deanna Lawson | ECON | Unknown | | + + + + + Care Team Providers + +------+ + | Care Java Consultant Name | Role | Phone | + +------+ + PCP | Unavailable | + +------+ + Encounter Details +--------+ + + + + | Date | Type | Department | Care Team | Description | +--------+ + + + + | 01/07/ | Orders Only | [facility] | Conversion | | | 2019 | | NEPRHOLOGY [facility] | Transaction, | | | | | [address] | Provider Unknown | | | | | [address] [place], [place] | [phone] | | | | | [address] | | | | | | [phone] | | | +--------+ + + + [...] | | | | | | [place] [address] | | | | | | [phone] | | | | | | | | +--------+---------+ + + + | 04/21/ | Office | Nephrology | Isiah Jade MD | | | 2019 | Visit | | [address] [facility] | | | | | | [address] [place] | | | | | | [address] | | | | | | | | +--------+---------+ + + + | 05/07/ | Office | Cardiology | Charlee Oswald | | | 2019 | Visit | | [address] | | | | | | [address] | | | | | | [place] [address] | | | | | | [phone] | | | | | | | [...] - 1.030 | EXTERNAL | | | [place], | | | LAB | | | [...]
--- OUTSIDE RECORDS SUMMARY | ~2020-03-05 | XMS | Clinical Summary ---
Demographics + + + | Address | [address] | | | [place] [address] | + + + | Home Phone [...] [place] | | | | | [address] | | + + + + + | Bekah Lawson | ECON | Unknown | | + + + + + Care Team Providers + +------+ + | Care Combination Welder Name | Role | Phone | + [...] + + + + | Overview: His SOP0EY9- VASC score is 6( HTN, age, stroke, [...] mild concentric LVH. He has a single-chamber [place] | | Scientific ventricular pacemaker that is [...] + + | Overview: He has a [place] [employer] Altrua single-chamber | | RV pacemaker [...] was seen | | today for this [employer] single-chamber device. 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 ([facility]); | | | | | | Moderate [...] | | | | | ([facility]); Secondary | | | | | | hyperparathyroidism | | | | | | ([facility]); CKD (chronic | | | | | | kidney disease) | | | | | | stage 3, GFR 30-59 | | | | | | ml/min ([facility]); ATN | | | | | | (acute tubular | | | | | | necrosis) ([facility]) | +--------+ + + + + | 01/30/ | Telephone | Orthopedic Surgery | Melquiades Baez | Other | | 2020 | | | Regulo DO | | +--------+ + + + + | 01/29/ | Office | Nephrology | Isiah Jade MD | ATN (acute tubular | | 2020 | Visit | | | necrosis) ([facility]) | | | | | | (Primary Dx); CKD | | | | | | (chronic kidney | | | | | | disease) stage 3, | | | | | | GFR 30-59 ml/min | | | | | | ([facility]); Hypertension | | | | [...] | | | | | ([facility]); 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 | | | | | | failure, stage 3 | | | | | | (moderate) ([facility]); | | | | | | Secondary | | | | | | hyperparathyroidism | | | | | | ([facility]); Bilateral leg | | | | | | edema; Electrolyte | | | | | | imbalance risk | +--------+ + + + + | 01/29/ | Documentati | Nephrology | Nelson | Results (01/22/20, | | 2019 | on | | Kita Sterling | 01/27/20) | | | | | Test Engineering Technician | | +--------+ + + + + | 01/26/ | Documentati | Nephrology | Nelson | Other (PCP progress | | 2019 | on | | Kita Sterling | note 01/23/20) | | | | | Test Engineering Technician | | +--------+ + + + + [...] | orders) | | | | | Test Engineering Technician | | +--------+ + + + + [...] Nephrology | Isiah Jade MD | [place] ([facility]/ | 2019 | | | | ) | +--------+ + + + + | 12/28/ | Anesthesia | | Maco Wolf, | | | 2019 | Event | | RUSSIAN HISTORY PROFESSOR | | +--------+ + + + + | 12/28/ | Surgery | | Lamont Hernandez MD | VANDANA | | 2019 | | | | | +--------+ + + + + | 12/21/ | Anesthesia | | Ja Hill, | | | 2020 | Event | | RUSSIAN HISTORY PROFESSOR | | +--------+ + + + + | 12/21/ | Surgery | | Melquiades Beaz | NAILING IM BETSY FEMUR | | [...] + | Father | | | [place], [place] | | | | (Age | | [...] + + | Sister | | | [place] | | | | (Age | | [...] | | | | | | [facility] | | | | | | [place] [address] | | | | | | [phone] | | | | | | | | +--------+---------+ + + + | 04/21/ | Office | Nephrology | Isiah Jade MD | | | 2019 | Visit | | [address] | | | | | | [address] [place] | | | | | | [address] | | | | | | | | +--------+---------+ + + + | 05/07/ | Office | Cardiology | Charlee Oswald | | | 2019 | Visit | | [address] | | | | | | [address] | | | | | | [place] [address] | | | | | | [phone] | | | | | | | [...] | + +--------+------+ +--------+--------+--------+ | Implant Id: [id number] - | Cardia | | | | | [id number] | | Pacer-02/04/2019Implanted: | c | | | | | /[id number] | | Qty: 1 on 02/04/2019 by [...] | | 07/20/ | 3060-0 | | [id number] - SnaImplanted: | | | MEDICAL - | | 2023 | 100S | | Qty: 1 on 12/22/2019 by | | | STRY | | | /NA | | Melquiades Baez DO at [facility] | | | | | | /[id number] | | [facility] | | | | | | 6D [...] | /NA | | DO Regulo at [facility] | | | | | | /[id number] | | [facility] | | | | | | 9B [...] | /NA | | DO Regulo at [facility] | | | | | | /[id number] | | [facility] | | | | | | 99 | + +--------+------+ +--------+--------+--------+ | Trochanteric NailImplanted: | | | [place] | | 07/20/ | 3125-1 | | Qty: 1 on 12/22/2019 by | | | Medical | | 4 | 200S | | Melquiades Baez DO at [facility] | | | | | | /NA | | [facility] | | | | | | /[id number] | | [place] | | | | | | E8 [...] created this | | | entry using Hemosphere Recognition software and EPIC | | | macros. The entry has been reviewed and there may still exist sound | | | alike word errors. | | | | | |Electronically signed by: Melquiades Baez DO 02/18/2020 1:54 PM PDT | | | | | | | | |Melquiades Baez DO has created this entry using Hemosphere | | |Recognition software and Vite macros. The entry has been reviewed and [...] 1.001 - 1.030 | | | | [place], | | | | | | Urine [...] | | | POC | performed at [facility];[address] | | LABORATORY | | | | [address];[place], [place] | | | | | | [address] | | | | + + + + + + + + | Specimen | + + | | + + + + + + + | Performing | Address | City/State/Zipcode | Phone Number | | Organization | | | | + + + + + | [facility] | [address] | [place] [address] | [phone] | + + + + + CBC [...] 0.02Comment: Testing | 0.00 - 0.10 | [facility] | | | Absolute | performed at [facility];[address] | K/uL | LABORATORY | | | | [address];[place] | | | | | | [address] | | | | + + + + + + + + | Specimen | + + | Blood | + + + + + + + | Performing | Address | City/State/Zipcode | Phone Number | | Organization | | | | + + + + + | [facility] | [address] | [place] [address] | [phone] | + + + + + Hemoglobin [...] [facility] | | | | performed at [facility];[address] | | LABORATORY | | | | [facility];[place], [place] | | | | | | [address] | | | | + + + + + + + + | Specimen | + + | Blood | + + + + + + + | Performing | Address | City/State/Zipcode | Phone Number | | Organization | | | | + + + + + | [facility] | [address] | [place] [address] | [phone] | + + + + + Surgical [...] | | technical component was performed by [facility], [address] [place] [address] | | | [place] [address] (Bilingual Counter Sales Retail: Padmini Sellers MD; CLIA# | | | [id number]). Professional interpretation was performed by[facility] | | | [employer], [address], | | | [place] [address] (Bilingual [employer] Sales [employer]: Oscar Maynard M.D.; CLIA#: | | | [id number]). Diagnostician: Padmini Sellers | | | MDPathologistElectronically [...] | |The technical component was performed by [facility], [address] [place] [address] (Bilingual [employer] Sales [employer]: Padmini Sellers MD; CLIA# [id number]). Professional interpretation was performed by | | |[facility], [address] [address] (Bilingual Counter Sales [employer]: Oscar Maynard M.D.; CLIA#: [id number]). | | | | | |Diagnostician: Padmini [...] Performed At | + + + | [facility] | [facility] | | [facility] | PROVATION | | [facility]astroenterology | | | Patient Name: Andres Guzmán | | | Procedure Date: 12/29/2019 8:36 AMMRN: [id number] | | | of : 1930 | [...] the anesthesiologist and the | | | service center technician in the pre-procedure area in the [...] | | | with Gold probe 7 Australian x 5 pulses was successful with | [...] | | | AMNumber of Addenda: 0 [facility] | | | - Check hemoglobin q 6 hours for one day. | | | | | | | | |LAMONT HERNANDEZ MD | | |12/29/2019 10:19:54 AM | | |This report has been signed electronically. | | | | | |Note Initiated On: 12/29/2019 8:36 AM | | |Number of Addenda: 0 | | | | | | [facility] | | + + + + +---------+ + + | Performing | Address | City/State/[facility] Mex[facility] | Phone Number | | Organization | [...] | | | | performed at [facility] | | | | | | [facility];[place], [place] | | | | | | [address] | | | | + + + + + + + + | Specimen | + + | Blood | + + + + + + + | Performing | Address | City/State/Zipcode | Phone Number | | Organization | | | | + + + + + | [facility] | [address] | [place] [address] | [phone] | + + + + + Fecal Hemoglobin (12/28/2019 7:20 PM PDT) + + + + + + | Component | Value | Ref Range | Performed | Pathologist | | | | | At | Signature | + + + + + + | FECAL | POSITIVE (A)Comment: | NEG | [facility] | | | OCCULT BLD | Testing performed at | | LABORATORY | | | | [facility];[address];[place] [address] | | | | + + + + + + + + | Specimen | + + | Stool - Stool | | specimen (specimen) | + + + + + + + | Performing | Address | City/State/Zipcode | Phone Number | | Organization | | | | + + + + + | [facility] | [address] | [place] [address] | [phone] | + + + + + Red [...] BANK | Testing performed at | | [facility] | | | COMMENT | [facility];[address] | | LABORATORY | | | | [address];[place] [address] | | | | + + + + + + + + | Specimen | + + | | + + + + + + + | Performing | Address | City/State/Zipcode | Phone Number | | Organization | | | | + + + + + | [facility] | [address] | [place] [address] | [phone] | + + + + + Type [...] + + + | BB BAND | [id number] | | [facility] | | | | | | LABORATORY | | + + + + + + | UNIT # | [id number] | | [facility] | | | | [...] + + + | UNIT # | [id number] | | [facility] | | | | [...] | | | RESULT | performed at [facility];[address] | | LABORATORY | | | | [address];[place], [place] | | | | | | [address] | | | | + + + + + + + + | Specimen | + + | Blood | + + + + + + + | Performing | Address | City/State/Zipcode | Phone Number | | Organization | | | | + + + + + | [facility] | [address] | [place] [address] | [phone] | + + + + + Procalcitonin (12/27/2019 5:04 AM PDT)Only the most recent of 2 results within the time bindu toscano is included. + + + + + + | Component | Value | Ref Range | Performed | Pathologist | | | | | At | Signature | + + + + + + | PROCALCITON | 0.41Comment: | <0.5 ng/mL [facility] | | | IN | [...] | | | | | | at [facility];[address] [place] [address] | | | | | | [facility];[place] [address] | | | | + + + + + + + + | Specimen | + + | Blood | + + + + + + + | Performing | Address | City/State/Zipcode | Phone Number | | Organization | | | | + + + + + | [facility] | [address] | [place] [address] | [phone] | + + + + + Vitamin [...] | | | | defined by the Rawson | | | | | | ofMedicine [...] IOM | | | | | | ([employer]son of Medicine). | | | | | [...] | | | | | performed at [facility], | | | | | | [address], | | | | | | [facility] [address] | | | | + + + + + + + + | Specimen | + + | Blood | + + + + + + + | Performing | Address | City/State/Zipcode | Phone Number | | Organization | | | | + + + + + | [facility] | [address] | [place] [address] | [phone] | + + + + + Potassium (12/27/2019 12:08 AM PDT) + + + + + + | Component | Value | Ref Range | Performed | Pathologist | | | | | At | Signature | + + + + + + | K | 4.0Comment: Testing | 3.5 - 4.9 | [facility] | | | | performed at [facility];[address] | mmol/L | LABORATORY | | | | [address];[place] | | | | | | [address] | | | | + + + + + + + + | Specimen | + + | Blood | + + + + + + + | Performing | Address | City/State/Zipcode | Phone Number | | Organization | | | | + + + + + | [facility] | [address] | [place] [address] | [phone] | + + + + + Complement [...] | | | COMPLEMENT | performed at [facility], | | LABORATORY | | | | [address], | | | | | | [place] [address] | | | | + + + + + + + + | Specimen | + + | | + + + + + + + | Performing | Address | City/State/Zipcode | Phone Number | | Organization | | | | + + + + + | [facility] | [address] | [place] [address] | [phone] | + + + + + Complement C4 Ag (12/26/2019 12:33 PM PDT) + + + + + + | Component | Value | Ref Range | Performed | Pathologist | | | | | At | Signature | + + + + + + | C4 | 15Comment: Testing | 14 - 44 mg/dL | [facility] | | | COMPLEMENT | performed at [facility], | | LABORATORY | | | | [address], | | | | | | [facility] [address] | | | | + + + + + + + + | Specimen | + + | | + + + + + + + | Performing | Address | City/State/Zipcode | Phone Number | | Organization | | | | + + + + + | [facility] | [address] | [place] [address] | [phone] | + + + + + Parathyroid Hormone, Intraoperative (12/26/2019 4:25 AM PDT) + + + + + + | Component | Value | Ref Range | Performed | Pathologist | | | | | At | Signature | + + + + + + | PTH Intact | 167.0 (H)Comment: | 8.7 - 79.6 | [facility] | | | | Testing performed at | pg/mL | LABORATORY | | | | [facility];[address] | [address];[place] [address] | | | | + + + + + + + + | Specimen | + + | | + + + + + + + | Performing | Address | City/State/Zipcode | Phone Number | | Organization | | | | + + + + + | [facility] | [address] | [place] [address] | [phone] | + + + + + ECHO [...] Testing | 55 - 400 U/L | [facility] | | | | performed at [facility];[address] | | LABORATORY | | | | [address];[place] | | | | | | [address] | | | | + + + + + + + + | Specimen | + + | Blood | + + + + + + + | Performing | Address | City/State/Zipcode | Phone Number | | Organization | | | | + + + + + | [facility] | [address] | [place] [address] | [phone] | + + + + + Immunoglobulin, Free Light Chain (12/25/2019 4:22 AM PDT) + + + + + + | Component | Value | Ref Range | Performed | Pathologist | | | | | At | Signature | + + + + + + | [place] Free | 121.2 (H) | 3.3 - [...] + + + + + + | [place] | 1.25Comment: Testing | 0.26 - 1.65 | [facility] | | | a Free | performed at [facility] | | LABORATORY | | | Light Chain | [place], [address] | | | | | Ratio | [place] [address] | | | | + + + + + + + + | Specimen | + + | Blood | + + + + + + + | Performing | Address | City/State/Zipcode | Phone Number | | Organization | | | | + + + + + | [facility] | [address] | [place] [address] | [phone] | + + + + + Sedimentation Rate (12/25/2019 4:22 AM PDT) + + + + + + | Component | Value | Ref Range | Performed | Pathologist | | | | | At | Signature | + + + + + + | ESR | 6Comment: Testing | 0 - 20 mm/Hr | [facility] | | | | performed at [facility], [address] | | LABORATORY | | | | [address], | | | | | | [place] [address] | | | | + + + + + + + + | Specimen | + + | Blood | + + + + + + + | Performing | Address | City/State/Zipcode | Phone Number | | Organization | | | | + + + + + | [facility] | [address] | [place] [address] | [phone] | + + + + + Glomerular Basement Membrane Ab, IgG (12/25/2019 4:22 AM PDT) + + + + + + | Component | Value | Ref Range | Performed | Pathologist | | | | | At | Signature | + + + + + + | Antiglomeru | 2Comment: | 0 - 20 units | [facility] | | | lar BM Ab, [...] [place] | | | | | | [address] | | | | + + + + + + + + | Specimen | + + | Blood | + + + + + + + | Performing | Address | City/State/Zipcode | Phone Number | | Organization | | | | + + + + + | [facility] | [address] | [place] [address] | [phone] | + + + + + Hepatitis [...] Amplificationtest | | | | | | ([id number]).Testing | | | | | | performed at [facility], | | | | | | [address], | | | | | | [facility] [address] | | | | + + + + + + + + | Specimen | + + | Blood | + + + + + + + | Performing | Address | City/State/Zipcode | Phone Number | | Organization | | | | + + + + + | [facility] | [address] | [place] [address] | [phone] | + + + + + Cytoplasmic [...] | | | | | performed by [facility], | | | | | | [address], | | | | | | [facility] [address] | | | | + + + + + + + + | Specimen | + + | Blood | + + + + + + + | Performing | Address | City/State/Zipcode | Phone Number | | Organization | | | | + + + + + | [facility] | [address] | [place] [address] | [phone] | + + + + + Lactate Dehydrogenase (12/25/2019 4:22 AM PDT) + + + + + + | Component | Value | Ref Range | Performed | Pathologist | | | | | At | Signature | + + + + + + | LDH TOTAL | 154Comment: Testing | 120 - 246 U/L | [facility] | | | | performed at [facility];[address] | | LABORATORY | | | | [address];[place], [place] | | | | | | [address] | | | | + + + + + + + + | Specimen | + + | Blood | + + + + + + + | Performing | Address | City/State/Zipcode | Phone Number | | Organization | | | | + + + + + | [facility] | [address] | [place] [address] | [phone] | + + + + + Protein/Creatinine Ratio, Urine (12/25/2019 12:01 AM PDT) + + + + + + | Component | Value | Ref Range | Performed | Pathologist | | | | | At | Signature | + + + + + + | PRO/CREA | 0.942Comment: Testing | | [facility] | | | RATIO,URINE | performed at [facility], [address] | | LABORATORY | | | | [address], | | | | | | [place] [address] | | | | + + + + + + + + | Specimen | + + | Urine | + + + + + + + | Performing | Address | City/State/Zipcode | Phone Number | | Organization | | | | + + + + + | [facility] | [address] | [place] [address] | [phone] | + + + + + Protein, Urine, Random (12/25/2019 12:01 AM PDT) + + + + + + | Component | Value | Ref Range | Performed | Pathologist | | | | | At | Signature | + + + + + + | Protein, | 131Comment: NO NORMAL | mg/dL | [facility] | | | Urine | RANGE ESTABLISHEDTesting | | LABORATORY | | | | performed at [facility], [address] | | | | | [address], | | | | | | [place] [address] | | | | + + + + + + + + | Specimen | + + | | + + + + + + + | Performing | Address | City/State/Zipcode | Phone Number | | Organization | | | | + + + + + | [facility] | [address] | [place] [address] | [phone] | + + + + + Creatinine, [...] | 139.0Comment: NO NORMAL | mg/dL | [facility] | | | random | RANGE ESTABLISHEDTesting | | LABORATORY | | | urine | performed at [facility], [address] | | | | | | [address], | | | | | | [place] [address] | | | | + + + + + + + + | Specimen | + + | | + + + + + + + | Performing | Address | City/State/Zipcode | Phone Number | | Organization | | | | + + + + + | [facility] | [address] | [place] [address] | [phone] | + + + + + XR [...] + + | Performing | Address | City/State/[facility] Mex[facility] | Phone Number | | Organization | [...] | | | Arterial, | performed at [facility];[address] | | LABORATORY | | | POC | [address];[place], [place] | | | | | | [address] | | | | + + + + + + + + | Specimen | + + | | + + + + + + + | Performing | Address | City/State/Zipcode | Phone Number | | Organization | | | | + + + + + | [facility] | [address] | [place] [address] | [phone] | + + + + + Coronavirus (COVID-19) NAAT (12/24/2019 1:10 PM PDT) + + + + + + | Component | Value | Ref Range | Performed | Pathologist | | | | | At | Signature | + + + + + + | SARS-CoV-2, | NEGATIVEComment: Testing | NEG | [facility] | | | NAAT | performed at [facility];[address] | | LABORATORY | | | (COVID-19) | [address];[place], [place] | | | | | | [...] | + + + + + | [facility] | [address] | [place] [address] | [phone] | + + + + + Culture, [...] | | LABORATORY | | | | Blvd;[place] [address] | | | | + + + + + + | RESULT | NO GROWTH 6 DAYS | | [facility] | | | | | | LABORATORY | | + + + + + + | RESULT | Testing performed at | | [facility] | | | | [place], [address] | | LABORATORY | | | | [address], [place], [place] | | | | | | [id number]: Testing | | | | | | performed at [facility], [address] | | | | | | [address], [place], [place] | | | | | | [address] | | | | + + + + + + + + | Specimen | + + | Blood - Peripheral | | blood specimen | | (specimen) | + + + + + + + | Performing | Address | City/State/Zipcode | Phone Number | | Organization | | | | + + + + + | [facility] | [address] [facility] | [place] [address] | [phone] | + + + + + Urinalysis [...] - 1.030 | [facility] | | | [place], | | | LABORATORY | | | [...] | | | Urine | performed at [facility], [address] | | LABORATORY | | | | [address], | | | | | | [place] [address] | | | | + + + [...] | + + + + + | [facility] | [address] | [place] [address] | [phone] | + + + + + Sodium, [...] | | | urine | performed at [facility], [address] | | | | | | [address], | | | | | | [place] [address] | | | | + + + [...] | + + + + + | [facility] | [address] | [place] [address] | [phone] | + + + + + Lactic Acid (12/24/2019 12:27 PM PDT) + + + + + + | Component | Value | Ref Range | Performed | Pathologist | | | | | At | Signature | + + + + + + | Lactate, | 1.6Comment: Testing | 0.4 - 2.0 | [facility] | | | Serum | performed at [facility];[address] | mmol/L | LABORATORY | | | | [address];[place], [place] | | | | | | [address] | | | | + + + + + + + + | Specimen | + + | Blood | + + + + + + + | Performing | Address | City/State/Zipcode | Phone Number | | Organization | | | | + + + + + | [facility] | [address] | [place] [address] | [phone] | + + + + + CBC [...] LABORATORY | | | | performed at [facility];[address] | | | [address];[place] | | | | | | [address] | | | | + + + + + + + + | Specimen | + + | Blood | + + + + + + + | Performing | Address | City/State/Zipcode | Phone Number | | Organization | | | | + + + + + | [facility] | [address] | [place] [address] | [phone] | + + + + + Phosphorus (12/23/2019 4:04 AM PDT) + + + + + + | Component | Value | Ref Range | Performed | Pathologist | | | | | At | Signature | + + + + + + | Phosphorus | 4.6Comment: Testing | 2.3 - 4.8 mg/dL | [facility] | | | | performed at [facility];[address] | | LABORATORY | | | | [address];[place] | | | | | | [address] | | | | + + + + + + + + | Specimen | + + | Blood | + + + + + + + | Performing | Address | City/State/Zipcode | Phone Number | | Organization | | | | + + + + + | [facility] | [address] | [place] [address] | [phone] | + + + + + Hemoglobin (12/22/2019 9:37 PM PDT) + + + + + + | Component | Value | Ref Range | Performed | Pathologist | | | | | At | Signature | + + + + + + | Hemoglobin | 9.1 (L)Comment: Testing | 13.2 - 17.0 | [facility] | | | | performed at [facility];888 | g/dL | LABORATORY | | | | [address];[place], [place] | | | | | | [address] | | | | + + + + + + + + | Specimen | + + | Blood | + + + + + + + | Performing | Address | City/State/Zipcode | Phone Number | | Organization | | | | + + + + + | [facility] | [address] | [place] [address] | [phone] | + + + + + Hematocrit (12/22/2019 9:37 PM PDT) + + + + + + | Component | Value | Ref Range | Performed | Pathologist | | | | | At | Signature | + + + + + + | Hematocrit | 27.4 (L)Comment: Testing | 39.0 - 50.0 % | [facility] | | | | performed at [facility];[address] | | LABORATORY | | | | [address];[place], [place] | | | | | | [address] | | | | + + + + + + + + | Specimen | + + | Blood | + + + + + + + | Performing | Address | City/State/Zipcode | Phone Number | | Organization | | | | + + + + + | [facility] | [address] | [place] [address] | [phone] | + + + + + Red [...] | | | POC | performed at [facility];888 | g/dL | LABORATORY | | | | [address];[place] | | | | | | [address] | | | | + + + + + + + + | Specimen | + + | | + + + + + + + | Performing | Address | City/State/Zipcode | Phone Number | | Organization | | | | + + + + + | [facility] | [address] | [place] [address] | [phone] | + + + + + Airway [...] | | | POC | performed at [facility];888 | g/dL | LABORATORY | | | | [address];[place], [place] | | | | | | [address] | | | | + + + + + + + + | Specimen | + + | | + + + + + + + | Performing | Address | City/State/Zipcode | Phone Number | | Organization | | | | + + + + + | [facility] | [address] | [place] [address] | [phone] | + + + + + from [...] +--------+ +---------+--------+ | MEDICARE | MEDICA | [id number] | 04/21/19 | [phone] | | Medica | | | RE | | 97-Pre | 5 | | re | | | PART A | | sent | | | | | | AND B | | | | | | + +--------+ +--------+ +---------+--------+ | INDIVIDUAL ASSURANCE | INDIVI | [id number] | | | | Indemn | | [...] | Self | [birth year] | | [address] | | Robert | al/Fam | | 1930 | [phone] | [place] | | | quique | | | 1 (Home) | [address] | + +--------+ +--------+ + + Advance Directives + + + + + | Type | Date Recorded | Patient | Explanation | | | | Manager Placement | | + + + + + | Power of | 02/18/2020 1:07 | | BEKAH MCDONNELL | | Manager Emergency | PM | | | + + [...]
--- OUTSIDE RECORDS SUMMARY | ~2020-03-05 | XMS | Encounter Summary ---
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 Exercises with [employer] and yard work, tolerates without chest pain or dyspnea. 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 Also worked for a [employer] company and then a [employer], but now just enjoys his leisure ti [...] or rhonchi noted, respirations unlab ored HEART: [facility] pacemaker site well Healed, stable to palpation. [...] : 02/04/2019: ( Dr. Thompson) : new Gramco Accolade MRI com patible model L310, serial #[id number] pacemaker. The current lead is a [employer] Vidiowiki model 4136, serial #[id number].Mode for pacing, VVIR with dual-sensor technology programmed on. T he lower rate will be 60 and upper rate 120beats per minute. The output will be 2 volts at 0.4 milliseconds with sensitivity of 2.5 millivolts. Pacing and sensing will be bipolar Previous Implant Pacemaker/ICD: 07/30/2010, SYDNEE Altrajinder S601, SN: [id number]. [facility]. Last pacer interrogation: 11/11/2019: Battery longevity 9 years. Pacer dependent. RV paci n%. No atrial lead, unable to monitor burden of atrial fibrillation. No ventricular high rate episodes. Lead impedance and threshold values acceptable. CHF parameters and ethan nds reviewed and stable. pacer interrogation: 05/07/2019: ( Dr. Thompson) : Normal device function was seen today for th is [employer] single-chamber device. The pacing threshold was [...] 15 mmHg. Normal pulmonic valve with mild NJ. Sinus of Valsalva dilated about 4.26 cm, [...] change, except less pulmonar y hypertension Echo:07/26/2017: [facility]: EF >70 percent. LV normal [...] 73. Thyroid: TSH 3.55 Labs: 08/23/2018: ( [facility]): CBC: WBC 6.6, RBC 2.92, hemoglobin [...] atrial fi b with a very high [id number]- VASC score of 6. 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 I also referred him for sleep apnea evaluation with Dr. Dorsey at the [facility] sleep disorders clinic due to his [...] for continuity of care purp nettie MCCONNELL [facility] 11/28/2019 Ubaldo gregory in this [...] HEALTHCARE, | | | | | | [place] [address] | | | | | | [phone] | | | | | | | | +--------+---------+ + + + | 04/21/ | Office | Nephrology | Isiah Jdae MD | | 2019 | Visit | | [address] [facility] | | | | | | [address] [place] | | | | | | [address] | | | | | | | | +--------+---------+ + + + | 05/07/ | Office | Cardiology | Charlee Oswald | | | 2019 | Visit | | [address] | | | | | | [address] | | | | | | [place] [address] | | | | | | [phone] | | | | | | | [...]
--- OUTSIDE RECORDS SUMMARY | ~2020-03-05 | XMS | Encounter Summary ---
Demographics + + + | Address | [address] | | | [place] [address] | + + + | Home Phone [...] [place] | | | | | [address] | | + + + + + | Deanna Lawson | ECON | Unknown | | + + + + + Care Team Providers + +------+ + | Care Business Center Attendant Name | Role | Phone | + +------+ + | Barbara Gilman MD | PCP | | + +------+ + Encounter Details +--------+ + + + + | Date | Type | Department | Care Team | Description | +--------+ + + + + | 10/25/ | Orders Only | [facility] | Charlee Oswald | | | 2019 | | CARDIOLOGY [facility] | [address] | | | | | [address] | [place] [address] | | | | | [address] | [place] [address] | | | | | [place] | [phone] | | | | | [address] | | | | | | [phone] | | | +--------+ + + + [...] | | | | | [address] [place] | | | | | | [place] [address] | | | | | | [phone] | | | | | | | | +--------+---------+ + + + | 04/21/ | Office | Nephrology | Isiah Jade MD | | | 2019 | Visit | | [address] [facility] | | | | | | [address] [place] | | | | | | [address] | | | | | | | | +--------+---------+ + + + | 05/07/ | Office | Cardiology | Charlee Oswald | | | 2019 | Visit | | [address] | | | | | | [address] | | | | | | [place] [address] | | | | | | [phone] | | | | | | | [...]
--- OUTSIDE RECORDS SUMMARY | ~2020-03-05 | XMS | Encounter Summary ---
Demographics + + + | Address | [address] | | | [place] [address] | + + + | Home Phone [...] [place] | | | | | [address] | | + + + + + | Deanna Lawson | ECON | Unknown | | + + + + + Care Team Providers + +------+ + | Care Slab Lifting Engineer Name | Role | Phone | + +------+ + | Barbara Gilman MD | PCP | | + +------+ + Encounter Details +--------+ + + + + | Date | Type | Department | Care Team | Description | +--------+ + + + + | 01/02/ | Orders Only | 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
[~2020-03-05 23:06] MED LIST changes: -COREG3.125 MG PO; +COREG6.25 MG PO; -PROAIR RESPICL90 MCG INH; +PROAIR RESPICL90 MCG PO
--- NOTE | 2020-03-06 05:38 | NUR ---
PT ARRIVED AT THE FLOOR 0510 VIA STRETCHER. HE USED THE RESTROOM SBA WITH FWW AND IS NOW IN BED. HE IS TUCKED INTO BED WITH VS TAKEN. RR IS EVEN AND NONLABORED AND VS STABLE. HE HAS FRESH ICEWATER AT BEDSIDE, CALL LIGHT IS CLOSE.
--- NOTE | 2020-03-06 05:45 | NUR ---
TWO WARM BLANKETS AND ICE WATER GIVEN. BEDSIDE TABLE AND CALL LIGHT IN REACH. PT NEEDS NOTHING MORE AFROM ME OF NOW.
--- NOTE | 2020-03-06 06:02 | NUR ---
ASSESSMENT COMPLETED. LUNGS CLEAR IN UPPER LOBES, EXPIRATORY WHEEZING AND DIMINISHED IN LOWER LOBES. 3+ EDEMA IN BLE AND ABD. DEPENDENT EDEMA IN SCROTUM. TRACE EDEMA IN BILATERAL ARMS. ALL TOES ARE RED AND DRY. SKIN TEARS TO BOTH ELBOWS COVERED WITH GAUZE, CDI. BOWEL TONES ACTIVE. CMS INTACT IN ALL EXTREMITIES. A&O X4. SCATTERED BRUISING NOTED. HR ON TELE PACED AT 60. NO OTHER NEEDS AT THIS TIME. CALL LIGHT IN REACH.
--- NOTE | 2020-03-06 07:00 | NUR ---
HANDOFF REPORT RECEIVED FROM CERTIFIED OPHTHALMIC ASSISTANT RN. PT SLEEPING, LEFT UNDISTURBED.
--- NOTE | 2020-03-06 07:55 | NUR ---
PT RESTING IN BED. PT ALERT AND ORIENTED. PT ON ROOM AIR, LUNG SOUNDS CLEAR IN UPPER LOBES, CRACKLES AND INSPIRATORY WHEEZE IN LOWER LOBES, PT REPORT OF SOB WHEN LYING FLAT. PT SALINE LOCKED. PT DENIES NAUSEA, ASSISTED TO ORDER BREAKFAST, BOWEL TONES ACTIVE. PT WITH EDEMA ON BLE, WORSE IN LEFT LEG, EDEMA EXTENDS INTO HIPS AND ABD. RIVERO CATH IN PLACE, DRAINING PINK URINE. DISCUSSED PLAN OF CARE FOR THE DAY. DISCUSSED ER BRIDGE ORDER FOR NS WITH DR. DIAZ, CONCERN OF STARTING FLUID WITH EDEMA AND CRACKLES, DR. DIAZ ORDER TO KEEP PT SALINE LOCKED.
--- NOTE | 2020-03-06 09:15 | NUR ---
ORTHOSTATIC VITALS TAKEN PER DR. DIAZ ORDER. LYING 147/56, HR 60. SITTING 147/58, HR 62, PT REPORT OF FEELING DIZZY FOR APPROX 10 SECONDS IMMEDIATELY AFTER MOVING FROM LYING TO SITTING. STANDING 158/53, HR 60, DENIED DIZZINESS WHILE STANDING. PT WITH WOULD TO LEFT FOOT PROXIMAL FROM 5TH TOE, AND WOUND TO RIGHT DOHERTY, DRESSED WITH ADAPTIC, NONADHERENT AND SECURED WITH GAUZE ROLL. AVOIDING TAPE DUE TO FRAGILE SKIN. VOUCHER EXAMINER TO ROOM FOR PACE MAKER INTERROGATION. PT DENIES OTHER NEEDS AT THIS TIME.
--- NOTE | 2020-03-06 10:40 | NUR ---
SPOKE WITH PATIENT IN ROOM. HE STATES HE HAS BEEN DOING WELL AT HOME UNTIL HIS FALL. HE STATES HE GOT UP FROM A CHAIR AND INSTEAD OF GIVING HIMSELF A FEW MINUTES TO ADJUST, HE TOOK OFF FOR THE KITCHEN AND THEN PASSED OUT. HIS FAMILY WAS AT HOME. HE STATES "I'M NEVER ALONE". HE LIVES WITH [place] AND GRANDDAUGHTER. HIS DAUGHTER IS THERE DAILY ALSO. 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 HE STATES HE HAS NOT BEEN DRIVING, FAMILY IS TAKING HIM. HE HAS ONLY ONE STEP INTO HOUSE. HE IS NOT WORRIED ABOUT AFFORDING MEDICATIONS, FOOD OR UTILITIES. HE FEELS SAFE TO GO HOME AT DISCHARGE. HE STATES HE HAS BEEN UP TODAY WITH WALKER AND MOVING NORMALLY. WILL FOLLOW NEEDED.
--- NOTE | 2020-03-06 12:19 | NUR ---
[employer] ANIMAL CARETAKER'S WERE CARING FOR PT-GETTING HIM READY FOR LUNCH. HE STATED HE WAS DOING BETTER, REQUESTED PRAYER. WILL FOLLOW NEEDED
[2020-03-06] MEDS ORDERED: CALCIUM + VITA1 EACH PO (12:59)
[2020-03-06] MEDS ORDERED: PANTOPRAZOLE SO40 MG PO (13:03)
[2020-03-06] MEDS ORDERED: TERAZOSIN HCL10 MG PO (13:07)
[2020-03-06] MEDS ORDERED: TORSEMIDE20 MG PO (13:08)
[2020-03-06] MEDS ORDERED: VITAMIN E400 UNI4 PO (13:09)
[2020-03-06] MEDS ORDERED: ALDACTONE25 MG PO (13:10)
--- NOTE | 2020-03-06 13:15 | NUR ---
PT RESTING IN BED. PT WITH LEFT ARM DRESSING FALLING DOWN, DRESSING CHANGED. PT ON ROOM AIR, LUNG SOUNDS CONTINUE TO HAVE CRACKLES IN THE BASES. EDEMA TO BLE UNCHANGED. RIVERO CATH DRAINING QS AFTER IV LASIX. NO ACUTE CHANGED. PT DENIES OTHER NEEDS AT THIS TIME.
--- NOTE | 2020-03-06 14:53 | EKG ---
[facility] [address] [place] [address] Signed Ventricular-paced rhythm with occasional premature ventricular complexes Abnormal ECG When compared with ECG of 21-DEC-2019 17:18, premature ventricular complexes are now present Vent. rate has increased BY 2 BPM Confirmed by GUILLERMO DIAZ DO ([id number]) on 03/06/2020 2:53:22 PM Electronically Signed By: GUILLERMO DIAZ DO 03/06/20 1453 PATIENT NAME: DESIREE MCCONNELL Electrocardiogram DATE OF : 34 PHYSICIAN: GUILLERMO DIAZ DO REPORT #: [id number] REPORT IS CONFIDENTIAL AND NOT TO BE RELEASED WITHOUT AUTHORIZATION
--- NOTE | 2020-03-06 17:29 | NUR ---
PT ALERT AND ORIENTED. PT ON ROOM AIR, LUNG SOUNDS WITH CRACKLES AND WHEEZES, DENIES SOB. PT SLAIEN LOCKED, RECEIVED IV LASIX TODAY. PT WITH FRAGILE SKIN, SKIN TEARS TO EXTREMITIES, DRESSED WITH ADAPTIC, NONADHERENT AND SECURED WITH GAUZE ROLL, AVOID TAPE. PT 1PA WITH WALKER, WORKED WITH PT/OT. PT WITH RIVERO CATH, DRAINING QS. PT TOLERATED DIET, FLUID RESTRICITION.
--- NOTE | 2020-03-06 19:26 | NUR ---
PT RESTING IN BED, WATCHING TV. SHIFT REPORT RECEIVED FROM CHARLIE VILLAR. NO NEEDS AT THIS TIME. CALL LIGHT IN REACH.
--- NOTE | 2020-03-06 21:44 | NUR ---
PATIENT RESTING IN BED ,RN AT BEDSIDE. NO FURTHER NEEDS AT THIS TIME.
--- NOTE | 2020-03-06 21:58 | NUR ---
ASSESSMENT COMPLETED. CBG 142, 1 UNIT INSULIN PROVIDED. UPPER LOBES CLEAR, LOWER LOBES HAVE INSPIRATORY WHEEZING AND DIMINISHED. MULITIPLE SKIN TEARS COVERED, CDI. SKIN APPEARS VERY FRAGILE. TOES HAVE REDNESS AND DRY. BLE 2+ EDEMA, DEPENDENT SCROTAL EDEMA AND ABDOMINAL EDEMA NOTED. TRACE EDEMA IN BILATERAL ARMS. RIVERO WNL. SCATTERED ABRASIONS NOTED. PT DENIES DIZZINESS OR PAIN AT THIS TIME. ICE WATER PROVIDED. NO OTHER NEEDS AT THIS TIME. CALL LIGHT IN REACH.
--- NOTE | 2020-03-06 22:34 | NUR ---
REGULATORY ASSISTANT ROUNDING NOTE. PT RESTING IN BED, PRIMARY RN AT BEDSIDE. CALL LIGHT IN REACH. WHITE BOARD UPDATED.
--- NOTE | 2020-03-06 22:39 | NUR ---
PT RESTING IN BED, EYES CLOSED. RR EVEN, UNLABORED. CALL LIGHT IN REACH.
--- NOTE | 2020-03-07 00:02 | NUR ---
PT CALLS TO USE BR, UP TO BR WITH FWW, BACK TO BED. NO NEEDS AT THIS TIME. CALL LIGHT IN REACH.
--- NOTE | 2020-03-07 01:16 | NUR ---
PT RESTING IN BED, EYES CLOSED. RR EVEN, UNLABORED. MAT WNL. CALL LIGHT IN REACH.
--- NOTE | 2020-03-07 02:15 | NUR ---
PATIENT RESTING IN BED, AWAKES UPON ENTRY TO ROOM. RN AT BEDSIDE. PATIENT CALL LIGHT IN REACH, FRESH ICEWATER AT BEDSIDE. NO FURTHER NEEDS AT THIS TIME.
--- NOTE | 2020-03-07 02:19 | NUR ---
ASSESSMENT COMPLETED. VS AND I&O COMPLETED BY ANA SUN. ICE WATER PROVIDED. RIVERO WNL. IV WNL, CDI. HR PACED AT 60. LUNGS CLEAR IN UPPER LOBES, DIMINISHED IN LOWER LOBES. BLE 3+ EDEMA, DEPENDENT SCROTAL EDEMA, 3+ ABD EDEMA, TRACE EDEMA IN BOTH ARMS. BOWEL TONES ACTIVE. NO OTHER NEEDS AT THIS TIME. CALL LIGHT IN REACH.
--- NOTE | 2020-03-07 03:28 | NUR ---
PT RESTING IN BED, EYES CLOSED. RR EVEN, UNLABORED. MAT WNL. CALL LIGHT IN REACH.
--- NOTE | 2020-03-07 05:15 | NUR ---
PATIENT AMBULATED TO BATHROOM AND BACK TO BED, STANDS FOR STANDING SCALE WEIGHT. PATIENT STATES THAT HE HAS RESTED WELL THE LAST FEW NIGHTS AND FEELS GREAT NOW. PATIENT CALL LIGHT IN REACH. NO FURTHER NEEDS AT THIS TIME.
--- NOTE | 2020-03-07 05:42 | NUR ---
PT SLEPT WELL THIS SHIFT. VSS, UOS. SOB WITH ACTIVITY. LUNGS ARE CLEAR IN UPPER LOBES AND DIMINISHED IN LOWER LOBES. EDEMA UNCHANGED AT 3+ BLE AND ABD, DEPENDENT IN SCROTUM AND TRACE IN BOTH ARMS. PT AMBULATES 1PA, FWW. IV WNL, FLUSHED WELL. PT TOLERATED MEDICATION AND FLUID RESTRICTION WELL. DW SHOWS PT DOWN 1LB. HR TRENDING 60s PACED.
--- NOTE | 2020-03-07 06:55 | NUR ---
HANDOFF REPORT RECEIVED FROM WIRE PULLER RN. PT SLEEPING, LEFT UNDISTURBED.
--- NOTE | 2020-03-07 09:15 | NUR ---
PT COMPLETED WITH EATING BREAKFAST. PT ON ROOM AIR LUNG SOUND CLEAR WITH CRACKLE SIN BILATERAL BASES, PT DENIE SOB. PT DENIES PAIN. PT WITH EDEMA IN BUE, BLE, SCROTUM, PENIS AND ABD. ORDER TO REMOVE FOLAY CATH, DISCUSSED WITH DR. DIAZ WITH CONCERN OF PENILE EDEMA, RIVERO REMOVED. PT WITH FRAGILE SKIN, SKIN TEARS ON BUE AND BLE, DRESSING IN PLACE. PT ASSISTED TO BATHROOM WITH SBA AND FWW, THEN TO CHIAR. PT TO WORK WITH P.T. PT DENIES OTHER NEEDS AT THIS TIME.
--- NOTE | 2020-03-07 12:45 | NUR ---
PT GIVEN 1 UNIT SS INSULIGN FOR BLOOD GLUCOE 146. PT SITTING IN CHAIR FOR LUNCH. PT REQUESTING TO SHOWER AFTER LUNCH. PT DENIES OTHER NEEDS AT [facility].
--- NOTE | 2020-03-07 14:30 | NUR ---
PT COMPLETED WITH SHOWER, SITTING IN THE CHAIR. DRESSINGS APPLIED TO WOUND ON BILATERAL ARMS AND LEGS, WOUNDS COVERED WITH PRISM COLLAGEN, THEN NONADHERENT PADS AND SECURED WITH GAUZE ROLL AND NETTING. PT VOICING CONCERN WITH WOUND CARE AT HOME, DOES NOT THINK HIS WILL BE ABLE TO MANAGE HIS WOUNDS, PT STATES HE WOULD BE ABLE TO DO OUT PATIENT WOUND CARE. MESSAGE SENT TO DR. DIAZ. IV LASIX GIVEN. PT DENIES OTHER NEEDS AT THIS TIME.
--- NOTE | 2020-03-07 17:29 | NUR ---
PT ALERT AND ORIENTED. PT ON ROOM AIR, LUNG SOUNDS CLEAR WITH INTERMITTENT WHEEZING AND CRACKLES IN THE BASES. RIVERO CATH DC THIS AM, VOIDING WELL, RECEIVED IV LASIX X2. PT SHOWERED, DRESSINGS CHANGED. PT UP WITH SBA WITH FWW.
--- NOTE | 2020-03-07 19:35 | NUR ---
DID PATIENT'S BLOOD SUGAR CHECK BREAKFAST, LUNCH AND DINNER. AFTER VITALS WERE DONE PATIENT WANTED TO GO TO BED. THAN LATER ON HE CALLED AND NEEDED TO GO TO THE BATHROOM. SO I HELPED HIM USE THE URINAL. NOW HE HAS A TAPED ATTEND UNDER HIM IN CASE IN CAN'T MAKE IT TO THE BATHROOM.
--- NOTE | 2020-03-07 20:52 | NUR ---
Repositioned in bed, alert and oriented, coop with assessment, on room air. lungs coarse expiratory, gets DMI symbicort. no cough noted during stay in room. R arm, L leg edema +2, dressing over Arms and legs due to scabbed over blistered areas, edemaotus scrotum. SL L wrist area, patent. helps turning uses urinal, on fluid restriction, tolerating well, no c/o n/v. High fall precautions in place, uses call light appropriately. HOB elevated to his comfort,
--- NOTE | 2020-03-07 20:55 | NUR ---
WARM BLANKET PROVIDED.
--- NOTE | 2020-03-07 20:58 | NUR ---
C/o generalized pain from fall, medicated with Tylenol 650mg po
--- NOTE | 2020-03-07 21:41 | NUR ---
ASSISTED PATIENT USE THE URINAL.
--- NOTE | 2020-03-07 22:33 | NUR ---
ASSISTED TO USE THE URINAL.
--- NOTE | 2020-03-08 00:22 | NUR ---
pt restless, reassured, edema 2+ pitting below L ribs to toes, R hip old incision and edema to hip pitting noted, repositioned, c/o itching, upper body cleansed with cold towel and dried.
--- NOTE | 2020-03-08 00:55 | NUR ---
Garett DIAZ NOTIFIED OF PTS C/O INCREASED ITCHING, NEW ORDERS TO GIVE BENADRYL 12.5 MG PO Q6-8H PRN ITCHING
--- NOTE | 2020-03-08 01:38 | NUR ---
cont to c/o itching, scratching back and extremities, Medicated with Benadryl 12.5mg po syrup.
--- NOTE | 2020-03-08 02:43 | NUR ---
UP TO CHAIR, ON ROOM AIR, EXP WHEEZING PRESENT, VOIDING FREQUENT SMALL AMOUNTS OF URINE. BARRIER LOTION APPLIED TO KAZ AREA. IN CHAIR 1PA/FWW, TOLERATED WELL, LEGS ELEVATED, EDEMA W/O CHANGES. NO SOB WITH EXERTION PRESENT. CALL LIGHT AT BEDSIDE, ON FLUIDS RESTRICTION.
--- NOTE | 2020-03-08 05:03 | NUR ---
PT ON ROOM AIR, LUNGS WITH EXP WHEEZING, CONTINUES TO HAVE EDEMA BELOW L RIBS L LEG AND FOOT 2-3+ PITTING EDEMA.r HIP AREA OLD HIP INCISION AND EDEMA 3+, r HAND 1+ EDEMA, MULTIPLE SCRATCHES/ SCABBED AREAS OVER ARMS AND LE. HEALING. EDEMATOUS PENIS AND SCROTUM. VOIDINF SMALL AMOUNTS OF URINE 11X THIS SHIFT. CURRENTLY IN CHAIR, LEGS ELEVATED, ON FLUIDS RESTRICTIONS, TOLERATING WELL, MEDICATED X1 WITH TYLENOL PER C/O GENERALIZED PAIN, EFFECTIVE. PT RECEIVED DMI TX. UP TO BR X2, VOIDED PLUS HAD A BM, BACK TO CHAIR 1PA/FWW. C/O ITCHING MID SHIFT, N.O FOR BENADRYL 12.5MG SYRUP GIVEN, TOOK W/O PROBLEMS. NO FURTHER C/O ITCHING, NO C/O N/V. PLEASANT AND C/O
--- NOTE | 2020-03-08 07:34 | NUR ---
0720: Report received from Arin VILLAR. Pt sleeping at this time, call moe within reach. Tele paced at 64 at this time.
--- NOTE | 2020-03-08 07:48 | NUR ---
DID PATIENT'S BLOOD SUGAR CHECK. ASKED HIM IF HE WOULD LIKE TO TAKE A SHOWER TODAY AND HE SAID MAYBE.
--- NOTE | 2020-03-08 08:33 | NUR ---
PT RESTING IN HIS CHAIR EATING BREAKFAST. HE STATES HE IS DOING WELL AND STATES HIS ARM PAIN FROM HIS SKIN TEARS IS UNDER GOOD CONTROL. HE DENIES ANY SYNCOPE AT THIS TIME, TELE SHOWS A PACED RHYTHM. PT'S WEIGHT IS DOWN 2.3 KG FROM YESTERDAY. +3 EDEMA NOTED IN THE LEFT ANKLE AND +1 IN THE RIGHT, LASIX GIVEN ORDERED AND FLUID RESTRICTION REINFORCED WITH THE PT. SEE ASSESSMENT.
--- NOTE | 2020-03-08 09:55 | NUR ---
TELE DC'D ORDERED. PT DENIES ANY PAIN AT THIS TIME. HE WAS ASSISTED WITH THE USE OF THE URINAL AND HE STATES HE HAS NO OTHER NEEDS AT THIS TIME.
--- NOTE | 2020-03-08 15:00 | NUR ---
PT SITTING IN CHAIR. PT COMPLAIN OF RIGHT ARM PAIN, 10/10, SORENESS AROUND THE WOUNDS SUSTAINED FROM HIS FALL AND IN SHOULDER. DENIES CHEST PAIN. DENIES SOB. PT ON ROOM AIR, LUNG SOUNDS CLEAR WITH CRACKLES IN THE POSTERIOR BASES. BOWEL TONES ACTIVE. EDEMA TO BLE, 3+ IN LEFT LEG, 1+IN RIGHT LEG. EDEMA IN ABD, HIPS AND SCROTUM. PT SALINE LOCKED. NO ACUTE CHANGES. PT DENIES OTHER NEEDS AT THIS TIME. DR. LOPEZ NOTIFIED OF ARM PAIN, NO NEW ORDERS.
--- NOTE | 2020-03-08 15:29 | PATH ---
[facility] [address] [facility] [place], [place] [address] Signed ORDERING PHYSICIAN: Gita Echevarria MD PATIENT NAME: DESIREE MCCONNELL GENDER: M : 1930 SPECIMEN(S): MOLECULAR PATHOLOGY RESULTS: SARS-CoV-2 Not Detected ADDITIONAL NOTES.: The [place] Fusion SARS-CoV-2 Assay is a multiplex real-time PCR (RT-PCR) in vitro diagnostic test intended for the qualitative detection of RNA from SARS-CoV-2 from individuals who meet COVID-19 clinical and/or epidemiological criteria. In general, SARS-CoV-2 RNA can be detected during the acute phase of infection. Positive results indicate the presence of SARS-CoV-2 RNA. Clinical correlation with patient history and other diagnostic information is necessary to determine patient infection status. Positive results do not rule out bacterial infection or co-infection with other viruses. Negative results do not preclude SARS-CoV-2 infection and should not be used as the sole basis for patient management decisions. Negative results must be combined with other clinical observations, patient history, and epidemiological information. The [place] Fusion SARS-CoV-2 Assay is not yet approved or cleared by the [place] FDA. When there are no FDA-approved or cleared tests available, and other criteria are met, FDA can make tests available under an emergency access mechanism called an Emergency Use Authorization (EUA). The EUA for this test is supported by the Manufacturing Leader of Health and Human Service's (HHS's) declaration that circumstances exist to justify the emergency use of in vitro diagnostics for the detection and/or diagnosis of the virus that causes COVID-19. This EUA will remain in effect for the duration of the COVID-19 declaration justifying emergency of IVDs, unless it is terminated or revoked by FDA, after which the test may no longer be used. The [place] Fusion SARS-CoV-2 Assay is for use only under EUA in US laboratories certified under the Clinical Laboratory Improvement Amendments of 1988 (CLIA) to perform high complexity tests. [facility] is certified under CLIA to perform high complexity PATIENT NAME: DESIREE MCCONNELL PATHOLOGY DATE OF : [birth year] REPORT #: [id number] PHYSICIAN: EDVIN PATHOLOGY PCP: HARRIETT FERRER MD REPORT IS CONFIDENTIAL AND NOT TO BE RELEASED WITHOUT AUTHORIZATION [address] [place], [place] [address] Signed clinical laboratory testing. PERFORMING LABORATORY.: Molecular testing was performed [facility] [place] [address] (Thermit Welding Machine Operator: Ant Vargas D.O.; CLIA#: [id number]) Diagnostician: System Interface Pathologist Electronically Signed 03/08/2020 Copies: ~ PATIENT NAME: DESIREE MCCONNELL PATHOLOGY DATE OF : [birth year] REPORT #: [id number] PHYSICIAN: EDVIN [place]AD PCP: HARRIETT FERRER MD REPORT IS CONFIDENTIAL AND NOT TO BE RELEASED WITHOUT AUTHORIZATION
--- NOTE | 2020-03-08 18:18 | NUR ---
PT ALERT AND ORIENTED. PT ON ROOM AIR, LUNG SOUNDS CLEAR WITH CRACKLES IN THE BASES. PT TOLERATING DIET, NO SS INSULIN GIVEN TODAY, FOLLOWING FLUID RESTRICTION. EDEMA SLIGHTLY IMPROVED FROM YESTERDAY, RECEIVED IV LASIX X2. PT COMPLAINT OF PAIN TO RIGHT ARM, GIVEN TYLENOL. 1PA WITH FWW. VOIDING QS, HAD BM TODAY.
--- NOTE | 2020-03-08 19:23 | NUR ---
PATIENT IS SITTING UP IN HIS CHAIR.
--- NOTE | 2020-03-08 19:55 | NUR ---
PT ASSESSMENT COMPLETE. PT SITTING UP IN CHAIR. RECENTLY USED URINAL INDEPENDENTLY. PT DENIES PAIN, STATES SLIGHT DISCOMFORT TO SKIN TEARS ON ARMS. DENIES NASUEA. REPORTS SOB AT BASELINE LEVEL. LUNG SOUNDS WITH EXPIRATORY WHEEZES PRESENT TO BILATERAL BASES. RT IN ROOM TO GIVE INHALER AND WORK ON ACAPELLA. EDEMA PRESENT 3+ TO LLE UP TO HIP, 1+ TO RLE. GENERALIZED EDEMA PRESENT TO BUES. PT WITH BLE ELEVATED. IV SITE FLUSHED, WNL. WARM BLANKET PROVIDED. DENIES FURTHER NEEDS AT THIS TIME. CALL LIGHT IN REACH. RT REMAINS AT BEDSIDE.
--- NOTE | 2020-03-08 23:00 | NUR ---
PATIENT CALLED. 1 SBA TO THE BATHROOM AND BACK TO BED. NO OTHER NEEDS AT THIS TIME.
--- NOTE | 2020-03-08 23:11 | NUR ---
PT UTILIZES CALL LIGHT, REQUESTS PRN TYLENOL. RELATIONS SPECIALIST TO ROOM, PT REPORTS 8/10 PAIN TO R ARM. TYLENOL ADMINISTERED. PT UP TO BATHROOM AND BACK TO BED WITH SBA AND FWW. PT REPORTS ITCHING TO BACK, LOTION APPLIED AND PRN BENADRYL TO BE ADMINISTERED. ICE WATER REFILLED. PT DENIES FURTHER NEEDS AT THIS TIME. CALL LIGHT IN REACH.
--- NOTE | 2020-03-09 00:53 | NUR ---
PATIENT CALLED TO USE THE BATHROOM. PATIENT IS BACK IN BED. NO OTHER NEEDS AT THIS TIME.
--- NOTE | 2020-03-09 01:50 | NUR ---
PT RESTING IN BED WITH EYES CLOSED. RESPIRATIONS EVEN AND UNLABORED. 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 PT APPEARS TO BE SLEEPING. CALL LIGHT IN REACH.
--- NOTE | 2020-03-09 02:16 | NUR ---
PATIENT CALLED. NEEDS ASSIST TO USE THE URINAL.
--- NOTE | 2020-03-09 02:46 | NUR ---
PT ASSESSMENT COMPLETE. PT RESTING IN BED. DENIES PAIN, STATES THAT ARM FEELS FINE LONG HE KEEPS IT WARM UNDER THE BLANKET. PT DENIES SOB AT REST. DENIES NAUSEA. LUNG SOUNDS DIM IN BILATERAL BASES. EDEMA UNCHANGED FROM PREVIOUS ASSESSMENT. DRESSING TO WOUNDS C/D/I. IV SL. PT DENIES FURTHER NEEDS AT THIS TIME. CALL LIGHT IN REACH.
--- NOTE | 2020-03-09 03:22 | NUR ---
CALL LIGHT ANSWERED. PATIENT WAS UP TO USE THE BATHROOM. PATIENT IS UP IN THE CHAIR. CALL LIGHT WITHIN REACH.
--- NOTE | 2020-03-09 05:21 | NUR ---
PT UTILIZES CALL LIGHT, NEEDS TO USE THE BATHROOM. PT UP FROM CHAIR TO BATHROOM, BACKT O CHAIR WITH 1 PA AND FWW. TOLERATED WELL. PT STATES THAT HE IS FEELING BETTER, FEELS THOUGH SWELLING HAS GONE DOWN SIGNIFICANTLY. DAILY WEIGHT OBTAINED. PT DENIES FURTHER NEEDS AT THIS TIME. CALL LIGHT IN REACH.
--- NOTE | 2020-03-09 05:22 | NUR ---
PT UP MULTIPLE TIMES THIS SHIFT TO USE THE BATHROOM. PAIN WELL CONTROLLED WITH TYLENOL. BENADRYL X 1 FOR ITCH. PT STATES THAT HE SLEPT BETTER TONIGHT THAN LAST. DRESSINGS IN PLACE TO SKIN TEARS, WOUND CARE CONSULT ENTERED. EDEMA CONTINUES TO BLE AND RUE. UO QS. 1 PA WITH FWW. IV SL.
--- NOTE | 2020-03-09 06:02 | NUR ---
PT UP TO THE BATHROOM AND BACK TO CHAIR WITH 1 PA AND FWW. TOLERATED WELL. DENIES FURTHER NEEDS AT THIS TIME. CALL LIGHT AND PERSONAL ITEMS WITHIN REACH.
--- NOTE | 2020-03-09 07:17 | NUR ---
received report from rossana carrington. pt appears to be resting at this time in the chair with respirations noted
[2020-03-09] MEDS ORDERED: CEPHALEXIN500 MG PO (09:44)
--- NOTE | 2020-03-09 10:31 | NUR ---
PT SITTING UP IN THE CHAIR READING THE NEWSPAPER. PT HAS NO COMPLAINTS AT THIS TIME. PT IS WAITING FOR WOUND CARE CONSULT AND THEN WILL BE READY TO GO HOME.
--- NOTE | 2020-03-09 11:56 | NUR ---
LE 1100: PT IS SEEN FOR WOUND CONSULT ORDERED OVER THE WEEKEND, FOR PARTIAL AND FULL THICKNESS SKIN TEARS ON BILATERAL UPPER AND LOWER EXTREMITIES. PT HAS VERY THIN/FRAGILE SKIN. USING ADHESIVE REMOVER, OLD ALLEVYN DRESSING ARE REMOVED FROM THE PT'S SKIN TEARS. THERE IS WHAT APPEARS TO BE LEFT OVER COLLAGEN ON SOME OF THE WOUNDS. IT IS ALSO APPARENT THAT THE REMAINGING SKIN WAS NOT REAPPROXIMATED PRIOR TO DRESSING THE WOUNDS. SOME OF THE SKIN IS REHYDRATED WITH WET GAUZE AND REAPPROXIMATED TO THE BEST OF MY ABILITY. PHOTOS AND MEASUREMENTS ARE TAKEN. ALL WOUNDS ARE COVERED WITH MEDIHONEY, GAUZE, AND COBAN (LOOSELY WRAPPED). THE PT IS POTENTIALLY GOING TO BE SEEN AN OUTPATIENT, WHERE WE CAN CONTINUE TO MONITOR THE PT'S WOUNDS PROGRESS.
--- NOTE | 2020-03-09 13:09 | NUR ---
PT ALERT, ORIENTED AND SITTING UP IN CHAIR READING PAPER. PT RECOGNIZED ME AND WELCOMED ME IN . HE IS PLEASANT AND COMPLIMENTARY OF STAFF AND CARE HE HAS RECEIVED AT [facility]. PT SHARED WITH ME SOME OF HIS SPIRITUAL JOURNEY WITH ME AND CONFESSED HOW DIFFICULT IT HAS BEEN NOT BEING AT [facility] AND HOW MUCH HE MISSES BEING TOGETHER. 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 PT AGREED TO LET ME CONTACT HIS CREPING MACHINE OPERATOR HELPER AND SEE IF HE COULD BURN EACH SABBATH SERVICE ON DVD AND GET TO PT. HE AGREED AND SO DID THE CREPING MACHINE OPERATOR HELPER. HAD PRAYER WITH PT AND LEFT A G.POST
== END 2020-03-09 13:45 | disposition home or self-care (01) | DRG 291 ==
LOC: ED 23:06 → MS 23:08 → ED 03-06 04:34 → MS 03-08 09:15
PROVIDERS: ADMIT Student in an Organized Health Care Education/Training Program
DX: I13.0 Hypertensive heart and chronic kidney disease with heart failure and stage 1 through stage 4 chronic kidney disease, or unspecified chronic kidney disease (principal); I50.33 Acute on chronic diastolic (congestive) heart failure; I48.20 Chronic atrial fibrillation, unspecified; N39.0 Urinary tract infection, site not specified; Z20.828 Contact with and (suspected) exposure to other viral communicable diseases; E11.22 Type 2 diabetes mellitus with diabetic chronic kidney disease; N18.9 Chronic kidney disease, unspecified; R55 Syncope and collapse; T44.7X5A Adverse effect of beta-adrenoreceptor antagonists, initial encounter; E78.5 Hyperlipidemia, unspecified; I27.20 Pulmonary hypertension, unspecified; D63.1 Anemia in chronic kidney disease; I07.1 Rheumatic tricuspid insufficiency; K70.30 Alcoholic cirrhosis of liver without ascites; B95.2 Enterococcus as the cause of diseases classified elsewhere; Z66 Do not resuscitate; Z95.0 Presence of cardiac pacemaker; Z88.8 Allergy status to other drugs, medicaments and biological substances; Z88.5 Allergy status to narcotic agent; Z86.73 Personal history of transient ischemic attack (TIA), and cerebral infarction without residual deficits
CPT/HCPCS: 36415; 51702; 51798; 70450; 71045; 73060; 80048; 80053; 81001; 83735; 83880; 84484; 85025; 85610; 85730; 87077; 87088; 87186; 93005; 93010; 93971; 94640; 94667; 97110; 97116; 99285-25; A9270; C9803; J1815; J1940; J7040

== ENCOUNTER 2020-03-21 02:38 | Emergency (ER) | payer MEDICARE ==
[~2020-03-21] VITALS: Ht 165.1 cm; Wt 81.7 kg
--- OUTSIDE RECORDS SUMMARY | ~2020-03-21 | XMS | Encounter Summary ---
Demographics + + + | Address | [address] | | | [place] [address] | + + + | Home Phone | | + + + | Preferred Language | Unknown | + + + | Marital Status | | + + + | Zoroastrianism Affiliation | 1001 | + + + | Race | Unknown | + + + | Ethnic Group | Unknown | + + + Author + + + | Author | [facility] | | | and [place] | + + + | Organization | [facility] | | [...] [place] | | | | | [address] | | + + + + + | Deanna Lawson | ECON | Unknown | | + + + + + Care Team Providers + +------+ + | Care Headlight Adjuster Name | Role | Phone | + +------+ + | Barbara Gilman MD | PCP | | + +------+ + Reason for Visit +--------+--------+ + | Reason | Onset | Comments | | | Date | | +--------+--------+ + | Other | 01/07/ | POST OP APPT | | | 2019 | | +--------+--------+ + Encounter Details +--------+ + + + + | Date | Type | Department | Care Team | Description | +--------+ + + + + | 01/07/ | Telephone | [facility] | Melquiades Baez | Other (POST OP APPT | | 2019 | | ORTHO SPORTS | DO [address] | ) | | | | MEDICINE [place] | [facility] | | | | | [address] [facility] | [place] [address] | | | | | [place], [place] | [phone] | | | | | [address] | | | | | | [phone] | | | +--------+ + + + [...] this encounter Miscellaneous Notes Telephone Encounter - Gwen Lay, Bleacher Lard - 01/08/2020 4:58 PM PDTCalled Idalia back and left a voicemail to give me a call back to discuss what Dr. Baez wants to to. Left office number. Electronically signed by Gwen Lay Bleacher Lard at 4:58 PM PDTTelephone Encounter - Gwen Lay, Bleacher Lard - 01/08/2020 4:39 PM PDTINCOMING CALL from cherelle Friedman at [facility]. She left voicemail in regards to patient not being to come in today for his appointment. She stated that patie nt daughter couldn't bring him today 01/08/2020 for patient first post op appointment because patient was to weak To weak to come in. She stated since patient is walking medicare wont paid for a non emergent ride to have an medics bring him and if takes a taxi it will be roug hly over [address] to [address] Baez and bring him back to the facility. She wanting to know if there is another solution so Dr. Baez can see him and that patient can get xray a t the facility and get images push to Dr. Baez office. She provided with a call back daniel santos at [phone]. Idalia ended the call documented in this encounter Plan of Treatment +--------+ + + + + | Date | Type | Specialty | Care Team | Description | +--------+ + + + + | 03/23/ | Preadmit | Pre-Admission | Anna Edouard, | | | 2019 | Visit | Testing | MD [address] | | | | | | [place] [address] | | | | | | [phone] | | | | | | | | +--------+ + + + + | 03/24/ | Hospital | | Anna Edouard, | Esophagitis | | 2019 | Encounter | | MD [address] | | | | | | [place] [address] | | | | | | [phone] | | | | | | | | +--------+ + + + + | 03/24/ | Surgery | | Anna Edouard, | [address] | | 2019 | | | [address] | | | | | | [place] [address] | | | | | | [phone] | | | | | | | | +--------+ + + + + | 03/31/ | Office | Orthopedic Surgery | Melquiades Baez | | | 2019 | Visit | | [address] | | | | | | [place], | | | | | | [place] [address] | | | | | | [phone] | | | | | | | | +--------+ + + + + | 04/21/ | Office | Nephrology | Isiah Jade MD | | | 2019 | Visit | | [address] [facility] | | | | | | [address] [place] [address] | | | | | | [address] | | | | | | | | +--------+ + + + + | 05/07/ | Office | Cardiology | Charlee Oswald | | | 2020 | Visit | | [address] | | | | | | [address] | | | | | | [place] [address] | | | | | | [phone] | | | | | | | | +--------+ + + + + documented as of this encounter Visit Diagnoses Not on filedocumented in this encounter"
--- OUTSIDE RECORDS SUMMARY | ~2020-03-21 | XMS | Encounter Summary ---
Demographics + + + | Address | [address] | | | [place] [address] | + + + | Home Phone | | + + + | Preferred Language | Unknown | + + + | Marital Status | | + + + | Uatsdin Affiliation | 1001 | + + + | Race | Unknown | + + + | Ethnic Group | Unknown | + + + Author + + + | Author | [facility] | | | and [place] | + + + | Organization | [facility] | | | [...] [place] | | | | | [address] | | + + + + + | Deanna Lawson | ECON | Unknown | | + + + + + Care Team Providers + +------+ + | Care Strategic Intelligence Officer Name | Role | Phone | [...] + + | 12/01/ | Telephone | [facility] | Charlee Oswald | Testing | | 2020 | | CARDIOLOGY ALYX | [address] | | | | | [address] | [address] | | | | | [address] | [place] [address] | | | | | [place] | [phone] | | | | | [address] | | | | | | [phone] | | | +--------+ + + + [...] PDTdocumented in this encounter Plan of Treatment +--------+ + + + + | Date | Type | Specialty | Care Team | Description | +--------+ + + + + | 03/23/ | Preadmit | Pre-Admission | Anna Edouard, | | | 2019 | Visit | Testing | MD [address] | | | | | | [place] [address] | | | | | | [phone] | | | | | | | | +--------+ + + + + | 03/24/ | Hospital | | Anna Edouard, | Esophagitis | | 2019 | Encounter | | MD [address] | | | | | | [place] [address] | | | | | | [phone] | | | | | | | | +--------+ + + + + | 03/24/ | Surgery | | Anna Edouard, | EGD | | 2019 | | | MD [address] | | | | | | [place] [address] | | | | | | [phone] | | | | | | | | +--------+ + + + + | 03/31/ | Office | Orthopedic Surgery | Melquiades Baez | | | 2019 | Visit | | [address] | | | | | | [place] | | | | | | [place] [address] | | | | | | [phone] | | | | | | | | +--------+ + + + + | 04/21/ | Office | Nephrology | Isiah Jade MD | | | 2019 | Visit | | [address] | | | | | | [place] | | | | | | [address] | | | | | | | | +--------+ + + + + | 05/07/ | Office | Cardiology | Charlee Oswald | | | 2019 | Visit | | [address] | | | | | | [address] | | | | | | [place] [address] | | | | | | [phone] | | | | | | | [...] disease (HCC) - Primary | + + | Esophagitis - Primary Esophagitis, unspecified | + + | Esophagitis Esophagitis, unspecified | + + documented in this encounter"
--- OUTSIDE RECORDS SUMMARY | ~2020-03-21 | XMS | Encounter Summary ---
Demographics + + + | Address | [address] | | | [place] [address] | + + + | Home Phone | | + + + | Preferred Language | Unknown | + + + | Marital Status | | + + + | Bahai Affiliation | 1001 | + + + [...] [place] | | | | | [address] | | + + + + + | Deanna Lawson | ECON | Unknown | | + + + + + Care Team Providers + +------+ + | Care Vendor Quality Supervisor Name | Role | Phone | [...] + + | 02/26/ | Telephone | [facility] | Titus Larson, | Procedure | | 2019 | | GASTROENTEROLOGY | Wrecking Supervisor | | | | | [address] | | | | | | [place], [place] | | | | | | [address] | | | | | | [phone] | | | +--------+ + + + [...] documented as of this encounter Miscellaneous Notes Addendum Note - Bethanie Sun NP - 03/13/2020 10:43 AM PDT Addended by: Tamia SUN on: 03/13/2020 10:43 AM Modules accepted: Orders ddendum Note - Titus Larson Medical Assistant - 03/12/2020 11:43 AM PDT Addended by: TITUS LARSON on: 03/12/2020 11:43 AM Modules accepted: Orders e lephone Encounter - Titus Larson Medical Assistant - 03/12/2020 11:37 AM PDTCalled jessica oleary and scheduled him for his repeat EGD with Dr. Edouard on March 24. Patient will receive COVID test day of procedure. Patient's info has been sent to refrigeration manager to arrange same day testing. Patient must arrive 3 hours early with a mask. Patient verified home address and agreed to receive instructions via US mail. Rosalinda, Can you please sign case? Electronically signed by Kita Johnson at 0 03/12/2020 11:43 AM PDTTelephone Encounter - Titus Larson Medical Assistant - 0 2:01 PM PDTPatient returned call. Stated he would prefer to do procedure in March. Will enter recall and call patient when March schedule opens. ele phone Encounter - Titus Larson Medical Assistant - 02/27/2020 1:[address] Aguirre s: "Repeat upper endoscopy will be performed in 8 to 10 weeks to evaluate for healing of sever e esophagitis." Attempted to reach patient to schedule. Patient was not available. Asked to have junior nt call us back. documented in this encounter Plan of Treatment +--------+ + + + + | Date | Type | Specialty | Care Team | Description | +--------+ + + + + | 03/23/ | Preadmit | Pre-Admission | Anna Edouard, | | | 2019 | Visit | Testing | MD [address] | | | | | | [place] [address] | | | | | | [phone] | | | | | | | | +--------+ + + + + | 03/24/ | Hospital | | Anna Edouard, | Esophagitis | | 2019 | Encounter | | MD [address] | | | | | | [place] [address] | | | | | | [phone] | | | | | | | | +--------+ + + + + | 03/24/ | Surgery | | Anna Edouard | EGD | | 2019 | | | [address] | | | | | | [place] [address] | | | | | | [phone] | | | | | | | | +--------+ + + + + | 03/31/ | Office | Orthopedic Surgery | Melquiades Baez | | | 2019 | Visit | | [address] | | | | | | [place], | | | | | | [place] [address] | | | | | | [phone] | | | | | | | | +--------+ + + + + | 04/21/ | Office | Nephrology | Isiah Jade MD | | | 2019 | Visit | | [address] | | | | | | [address] [place] [address] | | | | | | [address] | | | | | | | | +--------+ + + + + | 05/07/ | Office | Cardiology | Charlee Oswald | | | 2020 | Visit | | [address] | | | | | | [address] | | | | | | [place] [address] | | | | | | [phone] | | | | | | | | +--------+ + + + + documented as of this encounter Visit Diagnoses + + | Diagnosis | + + | Esophagitis - Primary Esophagitis, unspecified | + + | Esophagitis - Primary Esophagitis, unspecified | + + | Esophagitis Esophagitis, unspecified | + + documented in this encounter
--- OUTSIDE RECORDS SUMMARY | ~2020-03-21 | XMS | Encounter Summary ---
Demographics + + + | Address | [address] | | | [place] [address] | + + + | Home Phone | | + + + | Preferred Language | Unknown | + + + | Marital Status | | + + + | Anglican Affiliation | 1001 | + + + | Race | Unknown | + + + | Ethnic Group | Unknown | + + + Author + + + | Author | [facility] | | | and [place] | + + + | Organization | [facility] | | | [...] [place] | | | | | [address] | | + + + + + | Deanna Lawson | ECON | Unknown | | + + + + + Care Team Providers + +------+ + | Care Eligibility Manager Name | Role | Phone | + +------+ + | Barbara Gilman MD | PCP | | + +------+ + Encounter Details +--------+ + + + + | Date | Type | Department | Care Team | Description | +--------+ + + + + | 08/08/ | Orders Only | [facility] | Charlee Oswald | | | 2017 | | CARDIOLOGY [place] | [address] | | | | | [address] | [address] | | | | | [address] | [place] [address] | | | | | [place] | [phone] | | | | | [address] | | | | | | [phone] | | | +--------+ + + + [...] [address] | | | | | | [place] [address] | | | | | | [phone] | | | | | | | | +--------+ + + + + | 03/24/ | Hospital | | Anna Edouard, | Esophagitis | | 2019 | Encounter | | MD [address] | | | | | | [place] [address] | | | | | | [phone] | | | | | | | | +--------+ + + + + | 03/24/ | Surgery | | Anna Edouard, | [address] | | 2019 | | | [address] | | | | | | [place] [address] | | | | | | [phone] | | | | | | | | +--------+ + + + + | 03/31/ | Office | Orthopedic Surgery | Melquiades Baez | | | 2019 | Visit | | [address] | | | | | | [place], | | | | | | [place] [address] | | | | | | [phone] | | | | | | | | +--------+ + + + + | 04/21/ | Office | Nephrology | Isiah Jade MD | | | 2019 | Visit | | [address] [facility] | | | | | | [address] [place] [address] | | | | | | [address] | | | | | | | | +--------+ + + + + | 05/07/ | Office | Cardiology | Charlee Oswald | | | 2019 | Visit | | [address] | | | | | | [address] | | | | | | [place] [address] | | | | | | [phone] | | | | | | | [...]
--- OUTSIDE RECORDS SUMMARY | ~2020-03-21 | XMS | Encounter Summary ---
Demographics + + + | Address | [address] | | | [place] [address] | + + + | Home Phone | | + + + | Preferred Language | Unknown | + + + | Marital Status | | + + + | Congregation Affiliation | 1001 | + + + | Race | Unknown | + + + | Ethnic Group | Unknown | + + + Author + + + | Author | [facility] | | | and [place] | + + + | Organization | [facility] | | [...] [place] | | | | | [address] | | + + + + + | Deanna Lawson | ECON | Unknown | | + + + + + Care Team Providers + +------+ + | Care Property Appraiser Name | Role | Phone | + +------+ + | Barbara Gilman MD | PCP | | + +------+ + Encounter Details +--------+ + + + + | Date | Type | Department | Care Team | Description | +--------+ + + + + | 10/25/ | Orders Only | [facility] | Charlee Oswald | | | 2019 | | CARDIOLOGY ALYX | [address] | | | | | [address] | [address] | | | | | [address] | [place] [address] | | | | | [place] | [phone] | | | | | [address] | | | | | | [phone] | | | +--------+ + + + [...] [address] | | | | | | [place] [address] | | | | | | [phone] | | | | | | | | +--------+ + + + + | 03/24/ | Hospital | | Anna Edouard, | Esophagitis | | 2019 | Encounter | | [address] | | | | | | [place] [address] | | | | | | [phone] | | | | | | | | +--------+ + + + + | 03/24/ | Surgery | | Anna Edouard, | [address] | | 2019 | | | [address] | | | | | | [place] [address] | | | | | | [phone] | | | | | | | | +--------+ + + + + | 03/31/ | Office | Orthopedic Surgery | Melquiades Baez | | | 2019 | Visit | | [address] | | | | | | [place], | | | | | | [place] [address] | | | | | | [phone] | | | | | | | | +--------+ + + + + | 04/21/ | Office | Nephrology | Isiah Jade MD | | | 2019 | Visit | | [address] [facility] | | | | | | [address] | | | | | | [address] | | | | | | | | +--------+ + + + + | 05/07/ | Office | Cardiology | Charlee Oswald | | | 2019 | Visit | | [address] | | | | | | [address] | | | | | | [place] [address] | | | | | | [phone] | | | | | | | [...]
--- OUTSIDE RECORDS SUMMARY | ~2020-03-21 | XMS | Encounter Summary ---
Demographics + + + | Address | [address] | | | [place] [address] | + + + | Home Phone | | + + + | Preferred Language | Unknown | + + + | Marital Status | | + + + | Temple Affiliation | 1001 | + + + | Race | Unknown | + + + | Ethnic Group | Unknown | + + + Author + + + | Author | [facility] | | | and [place] | + + + | Organization | [facility] | | | and [...] [place] | | | | | [address] | | + + + + + | Deanna Lawson | ECON | Unknown | | + + + + + Care Team Providers + +------+ + | Care Per Diem Nurse Name | Role | Phone | + +------+ + PCP | Unavailable | + +------+ + Encounter Details +--------+ + + + + | Date | Type | Department | Care Team | Description | +--------+ + + + + | 02/04/ | Hospital | [facility] | Conversion | Presence of cardiac | | 2019 | Encounter | CENTER CV [facility]TRA OP | Transaction, | pacemaker; Permanent | | | | [address] | Provider Unknown | atrial fibrillation | | | | [place], [place] | [phone] | (HCC); 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 | Enoch Marks MD | failure ([facility]); | | | | | [address] | Pacemaker at end of | | | | | [address] [place], [place] | battery life | | | | | [address] | | | | | | | [...] Surgery Author Type: Registered Nurse Filed: 02/04/19 2491 Date of Service: 02/04/19 1430 Status: Signed Waste Water Plant Operator: Sendy Smith RN (Registered Nurse) Patient discharged [...] H&P by Enoch Marks MD at 02/03/19 4820 Author: Enoch Marks MD Service: Specialist Author Type: Physician Filed: 02/04/19 1252 Date of Service: 02/03/191735 Status: Addendum Waste Water Plant Operator: Enoch Marks MD (Physician) Related Notes: Original Note by Enoch Marks MD (Physician) filed at 02/04/19 1228 [facility] Service: Electrophysiology Update to Pre-Operative History & [...] Guzmán : 1930: AGE: 88 y.o. Phone- [phone] (home) PRIMARY CARE: Barbara Gilman Requesting Physician: Barbara Gilman MD [address] [place], [place] [id number] SUMMARY OF EP RECOMMENDATIONS Patient Active Problem [...] mild concentric LVH. He has a single-chamber [employer] ventricular pacemaker mayelin t is nearing elective replacement indicator status. He has been pacing the right ventricle 9 9% of the time. Anticoagulated with apixaban. He has only been taking 2.5 mg twice per day, because of renal dysfunction and age. day. The chads 2 vascular score is 4. 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 He has a [employer] Altrua single-chamber RV pacemaker that was [...] (two) times daily., Di sp: , Rfl: Athpklm-Gdwbwljxe-Xwcwpzn D 600-40-500 MG-MG-UNIT TB24, Take 1,200 mg [...] | | | | | | [place] [address] | | | | | | [phone] | | | | | | | | +--------+ + + + + | 03/24/ | Hospital | | Anna Edouard, | Esophagitis | | 2019 | Encounter | | [address] | | | | | | [place] [address] | | | | | | [phone] | | | | | | | | +--------+ + + + + | 03/24/ | Surgery | | Anna Edouard | [address] | | 2019 | | | [address] | | | | | | [place] [address] | | | | | | [phone] | | | | | | | | +--------+ + + + + | 03/31/ | Office | Orthopedic Surgery | Melquiades Baez | | | 2019 | Visit | | [address] | | | | | | [place], | | | | | | [place] [address] | | | | | | [phone] | | | | | | | | +--------+ + + + + | 04/21/ | Office | Nephrology | Isiah Jade MD | | | 2019 | Visit | | [address] [facility] | | | | | | [address] | | | | | | [address] | | | | | | | | +--------+ + + + + | 05/07/ | Office | Cardiology | TatoleenaCharlee | | | 2019 | Visit | | [address] | | | | | | [address] | | | | | | [place] [address] | | | | | | [phone] | | | | | | | [...] will be seen in one week in [place] | | | by ENEDINA Bo. Read [...] | | indicator status. 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 He has felt poorly over the last few | | | weeks since the device went into an MIRIAN mode. The current lead is | | | a [employer] model 4136, serial #[id number]. The current | | | pacemaker is a [employer] model S601, serial #[id number]. He is | | | anticoagulated and [...] The lead was attached to a new [employer] | | | Accolade MRI compatible model L310, serial #[id number] pacemaker. That | | | device was [...] indicator | | status. 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 He | | has felt poorly over the last few weeks since the device went into an MIRIAN | | mode. The current lead is a [employer] model 4136, serial | | #[id number]. The current pacemaker is a [employer] model S601, serial | | #[id number]. He is anticoagulated and the last dose [...] The lead was attached to a new [employer] | | Accolade MRI compatible model L310, serial #[id number] pacemaker. That device | | was placed [...] seen in one | | week in [place] by ENEDINA Bo. | | | | [...] | | | Fingerstick | performed at [facility];[address] | | LAB | | | | [address];[place] | | | | | | [address] | | | | + + + [...] | | | Basophils | performed at [facility];[address] | [address] | LAB | | | | [address];[place], [place] | | | | | | [address] | | | | + + + [...] | | | | | performed at [facility];[address] | | | | | | [facility];[place], [place] | | | | | | [address] | | | | + + + [...] adjustment of cardiac pacemaker | + + | Esophagitis - Primary Esophagitis, unspecified | + + | Esophagitis Esophagitis, unspecified | + + documented in this encounter
--- OUTSIDE RECORDS SUMMARY | ~2020-03-21 | XMS | Encounter Summary ---
Demographics + + + | Address | [address] | | | [place] [address] | + + + | Home Phone | | + + + | Preferred Language | Unknown | + + + | Marital Status | | + + + | Islam Affiliation | 1001 | + + + | Race | Unknown | + + + | Ethnic Group | Unknown | + + + Author + + + | Author | [facility] | | | and [place] | + + + | Organization | [facility] | | [...] [place] | | | | | [address] | | + + + + + | Deanna Lawson | ECON | Unknown | | + + + + + Care Team Providers + +------+ + | Care Evp Head Of [employer] Experience Strategy Name | Role | Phone | + +------+ + | Barbara Gilman MD | PCP | | + +------+ + Reason for Visit + + + | Reason | Comments | + + + | Follow-up | right hip | + + + Surgery OP (Urgent) [...] | diabetes | [address] | [address] | | | | | mellitus | [address] | [facility], | | | | | with other | [place] | [place] | | | | | diabetic | [address] | [address] | | | | | kidney | Phone: | Phone: | | | | | complication | [phone] | [phone] | | | | | (HCC) | Fax: | Fax: | | | | | Chronic | [phone] | [phone] | | | | | diastolic | [...] Description | +--------+---------+ + + + | 02/17/ | Office | [facility] | Melquiades Baez | Right hip pain | | 2020 | Visit | [facility] | [address] | (Primary Dx); | | | | [facility] | [facility], | Orthopedic | | | | [address] [facility] | [place] [address] | aftercare; Closed | | | | [place], [place] | [phone] | fracture of right | | | | [address] | | hip with routine | | | | [phone] | | healing, subsequent | | | | | | encounter | +--------+---------+ + + + Social History [...] documented in this encounter Progress Notes Melquiades Baez, - 02/18/2020 1:10 PM PDT [facility] Service: Orthopedic Surgery Post Operative Note DOS: 12/22/2019 right hip IM nail History of Present Illness: Andres Guzmán is doing okay at this point. He rates his pain a 0 out of 10. He has been walking with a walker. He states he does not really feel unstable without the wal ker at this point. His pain in the hip is 0. He has noticed he says in the last couple day s that part of the incision may have started leaking again. PHYSICAL EXAMINATION GEN: Alert and oriented x3, No acute distress HEENT: extraocular movements intact, normocephalic atraumatic ABD: soft, non-tender, non distended Right hip: Demonstrates incisions that are actually well-healed. I did pull off the dressi ng and I not see any evidence of drainage from the incision. There is a little bit of an op en wound more anterior to the incision that is not aligned with any of the incisions. That does appear to be where there is drainage coming from. This almost looks like a scrape but I am not sure how it happened. It does not look infected Radiographs: Recent Results (from the past 360 hour(s)) XR Hip Right 2-3 Views Narrative History: This is a 89 y.o. year old male. Diagnosis for Order 1. Right hip pain . Findings: 2 views the right hip demonstrate a proximal humerus fracture in good position. No evidence of loosening. No loss of fixation. No evidence of movement.. Impression: Healing intertrochanteric hip fracture. Electronically signed by: Melquiades Baez DO 02/18/2020 1:54 PM PDT Melquiades Baez DO has created this entry using MakersKit Voice Recognition software and Cutefund macros. The entry has been reviewed and there may still exist sound alike word errors. ASSESSMENT: 1. Right hip pain XR Hip Right 2-3 Views 2. Orthopedic aftercare 3. Closed fracture of right hip with routine healing, subsequent encounter PLAN: I reviewed the x-rays with the patient. He will continue local wound care at that small si te. All of their questions were answered today. I will see him back in about 4 to 6 weeks. He did not anything further for me. Melquiades Baez DO 02/24/2020 5:39 PM PDT jasvir gregory in this encounter Plan of Treatment +--------+ + + + + | Date | Type | Specialty | Care Team | Description | +--------+ + + + + | 03/23/ | Preadmit | Pre-Admission | Anna Edouard, | | | 2019 | Visit | Testing | MD [address] | | | | | | [place] [address] | | | | | | [phone] | | | | | | | | +--------+ + + + + | 03/24/ | Hospital | | Anna Edouard, | Esophagitis | | 2019 | Encounter | | MD [address] | | | | | | [place] [address] | | | | | | [phone] | | | | | | | | +--------+ + + + + | 03/24/ | Surgery | | Anna Edouard, | EGD | | 2019 | | | MD [address] | | | | | | [place] [address] | | | | | | [phone] | | | | | | | | +--------+ + + + + | 03/31/ | Office | Orthopedic Surgery | Melquiades Baez | | | 2019 | Visit | | DO [address] | | | | | | [place] | | | | | | [place] [address] | | | | | | [phone] | | | | | | | | +--------+ + + + + | 04/21/ | Office | Nephrology | Isiah Jade MD | | 2019 | Visit | | [address] | | | | | | [address] [place] | | | | | | [address] | | | | | | | | +--------+ + + + + | 05/07/ | Office | Cardiology | Charlee Oswald | | 2019 | Visit | | [address] | | | | | | [address] | | | | | | [place] [address] | | | | | | [phone] | | | | | | | [...] created this | | | entry using [employer] Recognition software and Cutefund | | | macros. The entry has been reviewed and there may still exist sound | | | alike word errors. | | | | | |Electronically signed by: Melquiades Baez DO 02/18/2020 1:54 PM PDT | | | | | | | | |Melquiades Baez DO has created this entry using [employer] | | |Recognition software and Cutefund macros. The entry has been reviewed and [...] aftercare Unspecified orthopedic aftercare | + + | Closed fracture of right hip with routine healing, subsequent encounter | + + | Esophagitis - Primary Esophagitis, unspecified | + + | Esophagitis Esophagitis, unspecified | + + documented in this encounter
--- OUTSIDE RECORDS SUMMARY | ~2020-03-21 | XMS | Encounter Summary ---
Demographics + + + | Address | [address] | | | [place] [address] | + + + | Home Phone | | + + + | Preferred Language | Unknown | + + + | Marital Status | | + + + | Hinduism Affiliation | 1001 | + + + | Race | Unknown | + + + | Ethnic Group | Unknown | + + + Author + + + | Author | [facility] | | | and [place] | + + + | Organization | [facility] | | [...] [place] | | | | | [address] | | + + + + + | Deanna Lawson | ECON | Unknown | | + + + + + Care Team Providers + +------+ + | Care Mutuel Machine Operator Name | Role | Phone | + +------+ + | Barbara Gilman MD | PCP | | + +------+ + Encounter Details +--------+---------+ + + + | Date | Type | Department | Care Team | Description | +--------+---------+ + + + | 05/07/ | Office | [facility] | Enoch Thompson, | Cardiac pacemaker in | | 2019 | Visit | CARDIOLOGY OPHELIA | [address] | situ; Permanent | | | | [address] | [address], | atrial fibrillation | | | | [place], [place] | [place] [address] | ([facility]) | | | | [address] | [phone] | | | | | [phone] | | | +--------+---------+ + + + [...] + + + | Blood Pressure | 110/44 | 05/07/2019 11:30 AM | | | | | PDT | | + + + + + | Pulse | 60 | 05/07/2019 11:30 AM | | | | | PDT | | + + + + + | Temperature | - | - | | + + + + + | Respiratory Rate | - | - | | + + + + + | Oxygen Saturation | 97% | 05/07/2019 11:30 AM | | | | | PDT | | + + + + + | Inhaled Oxygen | - | - | | | Concentration | | | | + + + + + | Weight | 72.6 kg (160 lb) | 05/07/2019 11:30 AM | | | | | PDT | | + + + + + | Height | 165.1 cm (5' 5") | 05/07/2019 11:30 AM | | | | | PDT | | + + + + + | Body Mass Index | 26.63 | 05/07/2019 11:30 AM | | | | | PDT | | + + + + + documented in this encounter Progress Notes Enoch Thompson MD - 05/07/2019 11:30 AM PDTFormatting of this note might be different fr om the original. ELECTROPHYSIOLOGY OUTPATIENT FOLLOW UP PATIENT NAME: Andres Guzmán : 1930: AGE: 88 y.o. (home) : PRIMARY CARE: Barbara Gilman MD Requesting Physician: ENEDINA Sandoval EP PROBLEMS ADDRESSED AT TODAY'S VISIT Problem List Cardiac pacemaker in situ Overview He has a [employer] single-chamber RV pacemaker that was placed on 2009 because of heart block, in the context [...] device is less than 0.5 years. No s ignificant arrhythmias have been seen. Monthly battery checks [...] risks, bene fits, and rationale have been reviewed 05/07/2019: A generator change out was performed on February 04, 2019. Normal device function was seen tofrancesca marcus for this [employer] single-chamber device. The pacing threshold was 0.6 V at 0.6 ms and 0.4 ms at 0.7 V. He was left at 2 V at 0.5 ms. There has been no arrhythmias. He i s pacemaker dependent and feels poorly without any pacing. Permanent atrial fibrillation Overview Permanent A. Fib. The left atrium was markedly dilated and he had severe pulmonary hyper tension(75mm)on an echo on July 26, 2017. The LV systolic function was normal. There was mild concentric LVH. He has a single-chamber [employer] ventricular pacemaker that is nearing elective replacement indicator status. He has been pacing the right ventricle 99% o f the time. Anticoagulated with apixaban. He has only been taking 2.5 mg twice per day, because of cierra al dysfunction and age. The chads 2 vascular score is 4. COMPREHENSIVE PROBLEM LIST Patient Active Problem List Diagnosis Date Noted Permanent atrial fibrillation (HCC) 04/24/2014 Priority: High Note Last Updated: 05/12/2019 Permanent A. Fib. The left atrium was markedly dilated and he had severe pulmonary hyper tension(75mm)on an echo on July 26, 2017. The LV systolic function was normal. There was mild concentric LVH. He has a single-chamber [employer] ventricular pacemaker that is nearing elective replacement indicator status. He has been pacing the right ventricle 99% o f the time. Anticoagulated with apixaban. He has only been taking 2.5 mg twice per day, because of cierra al dysfunction and age. The chads 2 vascular score is 4. 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 Priority: High Note Last Updated: 05/07/2019 He has a [employer] single-chamber RV pacemaker that was placed on 2009 because of heart block, in the context [...] device is less than 0.5 years. No s ignificant arrhythmias have been seen. Monthly battery checks [...] risks, bene fits, and rationale have been reviewed 05/07/2019: A generator change out was performed on February 04, 2019. Normal device function was seen tofrancesca marcus for this [email or web address] single-chamber device. The pacing threshold was 0.6 V at 0.6 ms and 0.4 ms at 0.7 V. He was left at 2 V at 0.5 ms. There has been no arrhythmias. He i s pacemaker dependent and feels poorly without any pacing. HLD (hyperlipidemia) 06/04/2015 Priority: Medium Essential hypertension with goal blood pressure less than 130/80 04/24/2014 Priority: Medium Note Last Updated: 04/04/2019 Controlled on current therapy. He is now on carvedilol 25 mg twice a day and lisinopril 20 mg twice a day along with Lasix 40 mg per day and spironolactone 25 mg twice a day. Hytri n 10 mg daily at bedtime. History of stroke 03/25/2019 Note Last Updated: 04/04/2019 stroke in 2007 stroke with right leg weakness with residual right-sided facial and lip droop, Moderate to severe pulmonary hypertension (HCC) 09/13/2018 Moderate tricuspid regurgitation 09/13/2018 Dilated aortic root (HCC) 09/13/2018 Stage 3 chronic kidney disease (HCC) 09/13/2018 Snoring 09/03/2017 Note Last Updated: 04/04/2019 A sleep study did not show sleep apnea apparently. Chronic diastolic heart failure (HCC) 07/25/2017 Note Last Updated: 04/04/2019 He has chronic diastolic heart failure related to permanent atrial fibrillation and anem ia. His LV systolic function is normal. Anemia 07/25/2017 Note Last Updated: 04/04/2019 He needed to be transfused 3 units of packed cells and was given vitamin K intravenously in June 2017 because of a GI bleed. Upper and lower endoscopy did not show a source. He is now taking iron. I recommended Switching from warfarin to apixaban because of the lower risk of blee ding with that agent. Labs will be checked today with an INR, CBC, and basic metabolic profpresley arora. Type 2 diabetes mellitus without complication ([facility]) 06/04/2015 Reading: Continue current therapy. I can see him if needed HISTORY OF PRESENT ILLNESS This patient returns today, following his a degenerating, February 04, 2019. He is doing well, with no symptoms of angina, CHF, tachycardias, dizziness, or syncope. No fevers or chills. No bleeding issues. Allergies Allergen Reactions Codeine Nausea And Vomiting and Vertigo Morphine And Related Nausea Only Nausea, Slow to recover Current Medications Current Outpatient Medications: allopurinol (ZYLOPRIM) 100 mg tablet, Take 1 tablet by mouth daily., Disp: 90 tablet, Rfl: 3 apixaban (ELIQUIS) 2.5 mg tablet, Take 1 tablet by mouth 2 (two) times daily., Disp: 6 0 tablet, Rfl: 11 ascorbic acid (VITAMIN C) 500 MG tablet, Take 500 mg by mouth daily., Disp: , Rfl: carvedilol (COREG) 25 mg tablet, Take 1 tablet by mouth 2 (two) times daily with meals ., Disp: 60 tablet, Rfl: 11 ferrous sulfate 325 mg tablet, Take 65 mg of iron by mouth every other day., Disp: , R fl: furosemide (LASIX) 40 mg tablet, Take 40 mg by mouth 6 days per week., Disp: , Rfl: lisinopril (PRINIVIL, ZESTRIL) 20 mg tablet, Take 20 mg by mouth 2 (two) times daily., Disp: , Rfl: meclizine (ANTIVERT) 25 mg tablet, Take 1 tablet by mouth 3 (three) times daily as nee ded., Disp: 90 tablet, Rfl: 0 metFORMIN (GLUCOPHAGE) 500 mg tablet, Take 500 mg by mouth 3 (three) times daily., Dis p: , Rfl: pravastatin (PRAVACHOL) 80 MG tablet, Take 40 mg by mouth nightly., Disp: , Rfl: raNITIdine (ZANTAC) 150 mg tablet, Take 1 tablet by mouth 2 (two) times daily., Disp: 60 tablet, Rfl: 11 spironolactone (ALDACTONE) 25 mg tablet, Take 1 tablet by mouth 2 (two) times daily., Disp: 60 tablet, Rfl: 11 terazosin (HYTRIN) 10 MG capsule, Take 10 mg by mouth daily with dinner., Disp: , Rfl: The past history, social history, family history and problem list were reviewed and update d with changes of any significance. DATA Laboratory values which I reviewed 05/12/2019 are as follows: Lab Results Component Value Date WBC 4.0 [...] Component Value Date BNP 506 (H) 07/26/2017 ROS I have personally reviewed and agree with ROS listed by ALLISON goodrich. All other systems are reviewed and negative. PHYSICAL EXAM BP 110/44 | Pulse 60 | Ht 1.651 m (5' 5") | Wt 72.6 kg (160 lb) | SpO2 97% | BMI 26.63 kg/m Physical Exam Constitutional: He is oriented to person, place, and time. He appears well-developed and we ll-nourished. No distress. HENT: Head: Normocephalic and atraumatic. Eyes: Pupils are equal, round, and reactive to light. Neck: No JVD present. No thyromegaly present. Cardiovascular: Normal rate, normal heart sounds and intact distal pulses. Exam reveals no gallop and no friction rub. No murmur heard. The pacemaker site looks good. Irregular rhythm with controlled heart rate. Pulmonary/Chest: Effort normal and breath sounds normal. No respiratory distress. He has no wheezes. He has no rales. Abdominal: Soft. Bowel sounds are normal. There is no tenderness. There is no guarding. Musculoskeletal: He exhibits no edema or tenderness. Neurological: He is alert and oriented to person, place, and time. Skin: Skin is warm and dry. He is not diaphoretic. Psychiatric: He has a normal mood and affect. His behavior is normal. Judgment and thought content normal. Vitals reviewed. Enoch Thompson MD 05/12/2019 8:55 *This report has been prepared using a voice recognition system. The report was reviewed f or accuracy, however, sound-alike word errors, addition and/or deletions may occur. If there is any question about this report please contact me. Patient Instructions No notes on file Myrtle Esteves Me dical Galley Stripper - 05/07/2019 11:30 AM Sheela COOPER Note- Electrophysiology Patient ID: Andres Guzmán is a 88 y.o. male. Review of Systems Constitutional: Positive for weight loss (Weight loss of 5 pounds.). Negative for chills, f ever and malaise/fatigue. HENT: Negative for congestion and sore throat. Respiratory: Positive for shortness of breath. Negative for cough. Cardiovascular: Positive for leg swelling. Negative for chest pain and palpitations. Gastrointestinal: Negative for abdominal pain and blood in stool. Genitourinary: Negative for hematuria. Musculoskeletal: Negative for myalgias. Neurological: Positive for dizziness and sensory change. Negative for loss of consciousness . Have you ever had a sleep study? YES Do you use oxygen? NO Do you use CPAP? NO Do you snore? NO Do you fall asleep for no reason during the day? NO Do you stop breathing at night? NO Do you feel excessively tired during the day? NO Lonnie ented in this encounter Plan of Treatment +--------+ + + + + | Date | Type | Specialty | Care Team | Description | +--------+ + + + + | 03/23/ | Preadmit | Pre-Admission | Anna Edouard, | | | 2019 | Visit | Testing | MD [address] | | | | | | [place] [address] | | | | | | [phone] | | | | | | | | +--------+ + + + + | 03/24/ | Hospital | | Anna Edouard, | Esophagitis | | 2020 | Encounter | | [address] | | | | | | [place] [address] | | | | | | [phone] | | | | | | | | +--------+ + + + + | 03/24/ | Surgery | | Anna Edouard, | EGD | | 2019 | | | MD [address] | | | | | | [place] [address] | | | | | | [phone] | | | | | | | | +--------+ + + + + | 03/31/ | Office | Orthopedic Surgery | Melquiades Baez | | | 2019 | Visit | | [address] | | | | | | [place] | | | | | | [place] [address] | | | | | | [phone] | | | | | | | | +--------+ + + + + | 04/21/ | Office | Nephrology | Isiah Jade MD | | | 2019 | Visit | | [address] | | | | | | [address] [place] | | | | | | [address] | | | | | | | | +--------+ + + + + | 05/07/ | Office | Cardiology | Charlee Oswald | | | 2019 | Visit | | [address] | | | | | | [address] | | | | | | [facility] [place] [address] | | | | | | [phone] | | | | | | | | +--------+ + + + + documented as of this encounter Visit Diagnoses + + | Diagnosis | + + | Cardiac pacemaker in situ | + + | Permanent atrial fibrillation (HCC) Atrial fibrillation | + + | Esophagitis - Primary Esophagitis, unspecified | + + | Esophagitis Esophagitis, unspecified | + + documented in this encounter
--- OUTSIDE RECORDS SUMMARY | ~2020-03-21 | XMS | Encounter Summary ---
Demographics + + + | Address | [address] | | | [place] [address] | + + + | Home Phone | | + + + | Preferred Language | Unknown | + + + | Marital Status | | + + + | Faith Affiliation | 1001 | + + + | Race | Unknown | + + + | Ethnic Group | Unknown | + + + Author + + + | Author | [facility] | | | and [place] | + + + | Organization | [facility] | | [...] [place] | | | | | [address] | | + + + + + | Deanna Lawson | ECON | Unknown | | + + + + + Care Team Providers + +------+ + | Care Piano Technician Name | Role | Phone | + +------+ + | Barbara Gilman MD | PCP | | + +------+ + Encounter Details +--------+ + + + + | Date | Type | Department | Care Team | Description | +--------+ + + + + | 04/01/ | Orders Only | [facility] | Tristan Rajput, | | | 2018 | | NEPHROLOGY [facility] | SOLAR SALES ADVISOR [address] | | | | | [address] | [address] | | | | | [address] [facility] [place] | [place] | | | | | [address] | [address] | | | | | [phone] | [phone] | | | | | | | [...] [address] | | | | | | [place] [address] | | | | | | [phone] | | | | | | | | +--------+ + + + + | 03/24/ | Hospital | | Anna Edouard, | Esophagitis | | 2019 | Encounter | | MD [address] | | | | | | [place] [address] | | | | | | [phone] | | | | | | | | +--------+ + + + + | 03/24/ | Surgery | | Anna Edouard | GRUPOD | | 2019 | | | MD [address] | | | | | | [place] [address] | | | | | | [phone] | | | | | | | | +--------+ + + + + | 03/31/ | Office | Orthopedic Surgery | Melquiades Baez | | | 2019 | Visit | | DO [address] | | | | | | [place], | | | | | | [place] [address] | | | | | | [phone] | | | | | | | | +--------+ + + + + | 04/21/ | Office | Nephrology | Isiah Jade MD | | 2019 | Visit | | [address] [facility] | | | | | | [address] [place], [place] | | | | | | [address] | | | | | | | | +--------+ + + + + | 05/07/ | Office | Cardiology | Darek Charlee | | | 2020 | Visit | | [address] | | | | | | [address] | | | | | | [place] [address] | | | | | | [phone] | | | | | | | | +--------+ + + + + documented as of this encounter Procedures + +--------+ + + + | Procedure Name | Priori | Date/Time | Associated Diagnosis | Comments | | | ty | | | | + +--------+ + + + | EXTERNAL LAB: CBC | Routin | 04/01/2019 | | Results for this | | | e | 8:20 AM | | procedure are in the | | | | PDT | | results section. | + +--------+ + + + | PROTEIN/CREATININE | Routin | 04/01/2019 | | Results for this | | RATIO, URINE | e | 8:20 AM | | procedure are in the | | | | PDT | | results section. | + +--------+ + + + | URIC ACID | Routin | 04/01/2019 | | Results for this | | | e | 8:20 AM | | procedure are in the | | | | PDT | | results section. | + +--------+ + + + | PARATHYROID HORMONE, | Routin | 04/01/2019 | | Results for this | | INTACT | e | 8:20 AM | | procedure are in the | | | | PDT | | results section. | + +--------+ + + + | MAGNESIUM | Routin | 04/01/2019 | | Results for this | | | e | 8:20 AM | | procedure are in the | | | | PDT | | results section. | + +--------+ + + + | RENAL FUNCTION PANEL | Routin | 04/01/2019 | | Results for this | | | e | 8:20 AM | | procedure are in the | | | | PDT | | results section. | + +--------+ + + + documented in this encounter Results Protein/Creatinine Ratio, Urine (04/01/2019 8:20 AM PDT) + + + + + + | Component | Value | Ref Range | Performed | Pathologist | | | | | At | Signature | + + + + + + | Protein/Cre | 340.6 (A) | 0 - 150 | EXTERNAL [...] + +---------+ + + External Lab: CBC (04/01/2019 8:20 AM PDT) + + + + + + | Component | Value | Ref Range | Performed | Pathologist | | | | | At | Signature | + + + + + + | WBC | 4.0 (A) | 4.5 - 11.0 10 | EXTERNAL | | | | | | LAB | | + + + + + + | Non- | 2.74 (A) | 4.3 - 5.7 10 | EXTERNAL | | | Red Blood | | | LAB | | | Cells | | | | | | Counted | | | | | + + + + + + | Hemoglobin | 9.0 (A) | 13.5 - 18.0 | EXTERNAL | | | | | g/dL | LAB | | + + + + + + | Hematocrit, | 26.9 (A) | 41 - 50 % | EXTERNAL | | | POC | | | LAB | | + + + + + + | MCV | 98.2 | 81 - 99 fL | EXTERNAL | | | | | | LAB | | + + + + + + | MCH | 33 | 27 - 33 pg | EXTERNAL | | | | | | LAB | | + + + + + + | MCHC | 33 | 30 - 36 g/dL | EXTERNAL | | | | | | LAB | | + + + + + + | Platelet | 121 (A) | 140 - 440 K/?L | EXTERNAL | | | Count | | | LAB | | | Plasma | | | | | + + + + + + | RDW-CV | 16.0 (A) | 10.5 - 15.0 % | EXTERNAL [...] + + + | % Segmented | 64.8 | 39 - 80 % | EXTERNAL | | | | | | LAB | | | Neutrophils | | | | | + + + + + + | % | 18.3 (A) | 24 - 44 % | EXTERNAL | | | Lymphocytes | | | LAB | | + + + + + + | % Monocytes | 10.7 | 0 - 12 % | EXTERNAL | | | | | | LAB | | + + + + + + | % | 6.1 (A) | 0 - 6 % | EXTERNAL | | | Eosinophils | | | LAB | | + + + + + + | % Basophils | 0.8 | 0 - 2 % | EXTERNAL | | | | | | LAB | | + + + + + + | Absolute | | /?L | EXTERNAL | | | Segmented | | | LAB | | | Neutrophils | | | | | + + + + + + | Absolute | | /?L | EXTERNAL | | | Lymphocytes | | | LAB | | + + + + + + | Absolute | | /?L | EXTERNAL | | | Monocytes | | | LAB | | + + + + + + | Absolute | | /?L | EXTERNAL | | | Eosinophils | | | LAB | | + + + + + + | Absolute | | /?L | EXTERNAL | | | Basophils | [...] | + +---------+ + + Uric Acid (04/01/2019 8:20 AM PDT) + +-------+ + + + | Component | Value | Ref Range | Performed | Pathologist | | | | | At | Signature | + +-------+ + + + | Uric Acid | 7.4 | 4.4 - 7.6 | EXTERNAL | [...] | | | + +---------+ + + Parathyroid Hormone, Intact (04/01/2019 8:20 AM PDT) + + + + + + | Component | Value | Ref Range | Performed | Pathologist | | | | | At | Signature | + + + + + + | PTH INTACT | 72.57 (A) | 15 - 65 pg/mL | EXTERNAL | | | | | [...] | | + +---------+ + + Magnesium (04/01/2019 8:20 AM PDT) + +-------+ + + + | Component | Value | Ref Range | Performed | Pathologist | | | | | At | Signature | + +-------+ + + + | Magnesium | 2.0 | 1.7 - 2.5 mg/dL | EXTERNAL | | | | [...] | | | + +---------+ + + Renal Function Panel (04/01/2019 8:20 AM PDT) + + + + + + | Component | Value | Ref Range | Performed | Pathologist | | | | | At | Signature | + + + + + + | Glucose, | 122 (A) | 70 - 100 mg/dL | EXTERNAL | | | Fasting | | | LAB | | + + + + + + | BUN | 41 (A) | 6 - 23 mg/dL | EXTERNAL | | | | | | LAB | | + + + + + + | Creatinine | 1.68 (A) | 0.70 - 1.11 | EXTERNAL | | | | | mg/dL | LAB | | + + + + + + | PHOSPHORUS | 3.5 | 2.5 - 5.0 mg/dL | EXTERNAL | | | | | | LAB | | + + + + + + | Albumin | 3.5 | 3.5 - 5.0 | EXTERNAL | | | | | | LAB | | + + + + + + | Na | 138 | 132 - 143 | EXTERNAL | | | | | mmol/L | LAB | | + + + + + + | K | 4.8 | 3.6 - 5.1 | EXTERNAL | | | | | mmol/L | LAB | | + + + + + + | Cl | 104 | 95 - 112 mmol/L | EXTERNAL | | | | | | LAB | | + + + + + + | CO2 | 23 | 19 - 31 mmol/L | EXTERNAL | | | | | | LAB | | + + + + + + | Anion Gap | 15.8 | 7 - 21 mmol/L | EXTERNAL | | | | | | LAB | | + + + + + + | eGFR, | | | EXTERNAL | | | non- | | | LAB | | | [place] | | | | | + + + + + + | Phosphorus, | | | EXTERNAL | | | Inorganic | | | LAB | | + + + + + + | BUN/Creatin | 24.4 | 6.0 - 28.6 | EXTERNAL | | | ine Ratio | | | LAB | | + + + + + + | Calcium | 8.7 | 8.5 - 10.3 | EXTERNAL | [...]
--- OUTSIDE RECORDS SUMMARY | ~2020-03-21 | XMS | Encounter Summary ---
Demographics + + + | Address | [address] | | | [place] [address] | + + + | Home Phone | | + + + | Preferred Language | Unknown | + + + | Marital Status | | + + + | Episcopalian Affiliation | 1001 | + + + | Race | Unknown | + + + | Ethnic Group | Unknown | + + + Author + + + | Author | [facility] | | | and [place] | + + + | Organization | [facility] | | | [...] [place] | | | | | [address] | | + + + + + | Deanna Lawson | ECON | Unknown | | + + + + + Care Team Providers + +------+ + | Care Dog Boarder Name | Role | Phone | + +------+ + | Barbara Gilman MD | PCP | | + +------+ + Encounter Details +--------+---------+ + + + | Date | Type | Department | Care Team | Description | +--------+---------+ + + + | 01/29/ | Office | [facility] | Isiah Jade MD | ATN (acute tubular | | 2020 | Visit | NEPHROLOGY [place] | [address] [place] | necrosis) (HCC) | | | | [address] [place] | [address] [place], [place] | (Primary Dx); CKD | | | | [address] [place], [place] | [address] | (chronic kidney | | | | [address] | | disease) stage 3, | | | | [phone] | | GFR 30-59 ml/min | | | | | | ([facility]); Hypertension | | | | | | [...] insulin | | | | | | ([facility]); 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 | | | | | | failure, stage 3 | | | | | | (moderate) ([facility]); | | | | | | Secondary | | | | | | hyperparathyroidism | | | | | | ([facility]); Bilateral leg | | | | | [...] in this enco unter Plan of Treatment +--------+ + + + + | Date | Type | Specialty | Care Team | Description | +--------+ + + + + | 03/23/ | Preadmit | Pre-Admission | Anna Edouard, | | | 2019 | Visit | Testing | MD [address] | | | | | | [place] [address] | | | | | | [phone] | | | | | | | | +--------+ + + + + | 03/24/ | Hospital | | Anna Edouard, | Esophagitis | | 2020 | Encounter | | MD [address] | | | | | | [place] [address] | | | | | | [phone] | | | | | | | | +--------+ + + + + | 03/24/ | Surgery | | Anna Edouard | EGD | | 2019 | | | [address] | | | | | | [place] [address] | | | | | | [phone] | | | | | | | | +--------+ + + + + | 03/31/ | Office | Orthopedic Surgery | Melquiades Baez | | | 2019 | Visit | | DO [address] | | | | | | [place], | | | | | | [place] [address] | | | | | | [phone] | | | | | | | | +--------+ + + + + | 04/21/ | Office | Nephrology | Isiah Jade MD | | | 2019 | Visit | | [address] [facility] [address] | | | | | | [place] | | | | | | [address] | | | | | | | | +--------+ + + + + | 05/07/ | Office | Cardiology | Charlee Oswald | | | 2020 | Visit | | [address] | | | | | | [address] | | | | | | [place] [address] | | | | | | [phone] | | | | | | | | +--------+ + + + + documented as of this encounter Visit Diagnoses + + | Diagnosis | + + | ATN (acute tubular necrosis) (HCC) - Primary Acute kidney failure with lesion of | | tubular necrosis | + + | CKD (chronic kidney disease) stage 3, GFR 30-59 ml/min ([facility]) Chronic kidney disease, | | Stage III (moderate) | + + | Hypertension goal BP (blood pressure) < 140/80 Unspecified essential hypertension | + + | Type 2 diabetes mellitus with diabetic nephropathy, without long-term current use of | | insulin ([facility]) | + + | Anemia of chronic kidney failure, stage 3 (moderate) ([facility]) | + + | Secondary hyperparathyroidism ([facility]) Secondary hyperparathyroidism (of renal origin) | + + | Bilateral leg edema Edema | + + | Electrolyte imbalance risk Other specified conditions influencing health status | + + | Esophagitis - Primary Esophagitis, unspecified | + + | Esophagitis Esophagitis, unspecified | + + documented in this encounter
--- OUTSIDE RECORDS SUMMARY | ~2020-03-21 | XMS | Encounter Summary ---
Demographics + + + | Address | [address] | | | [place] [address] | + + + | Home Phone | | + + + | Preferred Language | Unknown | + + + | Marital Status | | + + + | Congregational Affiliation | 1001 | + + + [...] [place] | | | | | [address] | | + + + + + | Deanna Lawson | ECON | Unknown | | + + + + + Care Team Providers + +------+ + | Care Engineer Remote Control Diesel Name | Role | Phone | + +------+ + | Barbara Gilman MD | PCP | | + +------+ + Encounter Details +--------+ + + + + | Date | Type | Department | Care Team | Description | +--------+ + + + + | 01/30/ | Orders Only | [facility] | Isiah Jade MD | Hypertension goal BP | | 2020 | | NEPHROLOGY [place] | [address] [place] | (blood pressure) < | | | | [address] [place] | [address] [place], [place] | 140/80 (Primary Dx); | | | | [address] [place], [place] | [address] | Type 2 diabetes | | | | [address] | | mellitus with | | | | [phone] | | 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, without | | | | | | long-term current | | | | | | use of insulin | | | | | | ([facility]); Secondary | | | | | | hyperparathyroidism | | | | | | ([facility]); CKD (chronic | | | | | | kidney disease) | | | | | | stage 3, GFR 30-59 | | | | | | ml/min ([facility]); ATN | | | | | | (acute tubular | | | | | | necrosis) ([facility]) | +--------+ + + + [...] [address] | | | | | | [place] [address] | | | | | | [phone] | | | | | | | | +--------+ + + + + | 03/24/ | Hospital | | Anna Edouard, | Esophagitis | | 2020 | Encounter | | MD [address] | | | | | | [place] [address] | | | | | | [phone] | | | | | | | | +--------+ + + + + | 03/24/ | Surgery | | Anna Edouard, | EGD | | 2019 | | | MD [address] | | | | | | [place] [address] | | | | | | [phone] | | | | | | | | +--------+ + + + + | 03/31/ | Office | Orthopedic Surgery | Melquiades Baez | | | 2019 | Visit | | DO [address] | | | | | | [place] | | | | | | [place] [address] | | | | | | [phone] | | | | | | | | +--------+ + + + + | 04/21/ | Office | Nephrology | Isiah Jade MD | | | 2019 | Visit | | [address] [place] | | | | | | [address] [facility] | | | | | | [address] | | | | | | | | +--------+ + + + + | 05/07/ | Office | Cardiology | Charlee Oswald | | | 2019 | Visit | | [address] | | | | | | [address] | | | | | | [place] [address] | | | | | | [phone] | | | | | | | [...] | | | | necrosis) ([facility]) | | + +------+--------+ + + [...] | | | | ml/min ([facility]) ATN | | | | | | (acute tubular | | | | | | necrosis) ([facility]) | | + +------+--------+ + + [...] | | | | ml/min ([facility]) ATN | | | | | | (acute tubular | | | | | | necrosis) ([facility]) | | + +------+--------+ + + [...]
--- OUTSIDE RECORDS SUMMARY | ~2020-03-21 | XMS | Encounter Summary ---
Demographics + + + | Address | [address] | | | [place] [address] | + + + | Home Phone | | + + + | Preferred Language | Unknown | + + + | Marital Status | | + + + | Yazidi Affiliation | 1001 | + + + | Race | Unknown | + + + | Ethnic Group | Unknown | + + + Author + + + | Author | [facility] | | | and [place] | + + + | Organization | [facility] | | | and [...] [place] | | | | | [address] | | + + + + + | Deanna Lawson | ECON | Unknown | | + + + + + Care Team Providers + +------+ + | Care Woolen Tester Name | Role | Phone | + +------+ + | Barbara Gilman MD | PCP | | + +------+ + Reason for Visit + + + | Reason | Comments | + + + | New Patient | new patient | + + + Encounter Details +--------+---------+ + + + | Date | Type | Department | Care Team | Description | +--------+---------+ + + + | 02/05/ | Office | [facility] | Dina Sanchez DO | Permanent atrial | | 2020 | Visit | [facility]IOLOGY [place] | [address] | fibrillation (HCC) | | | | [address] | [place] | (Primary Dx); | | | | [address] | [address] | Hypertension goal BP | | | | [place] | | (blood pressure) < | | | | [phone] | | 140/80; Chronic | | | | [phone]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 | | | | | | failure (HCC); | | | | | | Moderate to severe | | | | | | pulmonary | | | | | | hypertension (HCC); | | | | | | Moderate tricuspid | | | | | | regurgitation | +--------+---------+ + + + Social History [...] + + | Pulse | 61 | 02/06/2020 12:50 PM | | | | | PDT | | + + + + + | Temperature | - | - | | + + + + + | Respiratory Rate | - | - | | + + + + + | Oxygen Saturation | 100% | 02/06/2020 12:50 PM | | | | | PDT | | + + + + + | Inhaled Oxygen | - | - | | | Concentration | | | | + + + + + | Weight | 76.2 kg (168 lb) | 02/06/2020 12:50 PM | | | | | PDT | | + + + + + | Height | 165.1 cm (5' 5") | 02/06/2020 12:50 PM | | | | | PDT | | + + + + + | Body Mass Index | 27.96 | 02/06/2020 12:50 PM | | | | | PDT | | + + + + + documented in this encounter Progress Notes Dina Sanchez DO - 02/06/2020 1:00 PM PDT [facility] Cardiology Consult Note Reason for Consultation: establish care History Obtained From: patient HISTORY OF PRESENT ILLNESS: Cardiac Problem List Chronic atrial fibrillation Stroke in 2006- right sided weakness and facial droop History PPM for SSS HFpEF 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 He was previously followed by Maximilian Oswald and was last seen by her on 11/28/2019. Since that time, he had a recent hospita lization in 12/2019 for a right hip fracture after a fall. The patient underwent right hip surgery. His postoperative course was complicated by a healthcare-associated pneumonia as well as worsening renal failure. Nephrology was consulted. He was also noted to have acute blood loss anemia due to a GI bleed and underwent packed red blood cell transfusion. GI wa s consulted and an endoscopy was performed, which demonstrated a bleeding duodenal ulcer, wh ich was cauterized. His anticoagulation was held. After he was discharged, he had another hospitalization at [facility] for deconditioning and difficulty with ambulation. After this, he had an ER visit for abdominal pain and was found to have a fecal impaction, which w as treated. Recently, the patient reports that he has been doing fair. He presents with his daughter, Deanna. She reports that he has not been walking as much as he should. He plans on starting physical therapy within this next week. He denies any bleeding issues since being discharge d from the hospital. He denies any recent blood in the stools or dark tarry stools. He has noticed that he has been getting short of breath whenever he exerts himself. He was suppo sed to be discharged on albuterol and Symbicort, but never received these medications from [facility] after he was discharged. He reports that he does get seasonal hayfever and is diffuse ly wheezy on physical exam today. He denies any fevers or cough, but does admit to occasion al chills. He reported that he had some increasing lower extremity edema. He saw Dr. Jade last week, who advised him to take torsemide 40 mg by mouth twice daily and elevate his fe et at least 1 hour twice a day. The patient reports that this has helped. His medication l ist today includes both torsemide and Lasix. He did bring his medications with him and adam gilliland that he is still taking both of these medications. They are written as Lasix 40 mg by mouth twice daily and torsemide 20 mg by mouth twice daily. The patient reports that he has been taking Lasix in the morning and torsemide in the afternoon. He denies any orthopnea or PND. He denies any recent episodes of chest pain. His most recent device interrogation demonstrated appropriate device functioning. ROS Constitutional: Positive for fatigue. HENT: Negative for nosebleeds. Eyes: Negative for visual disturbance. Respiratory: Negative for cough and positive for shortness of breath. Cardiovascular: see HPI Gastrointestinal: Negative for nausea, vomiting, abdominal pain and blood in stool. Genitourinary: Negative for hematuria or dysuria. Musculoskeletal: Negative for myalgias, back pain and positive for arthralgias. Skin: Negative for color change. Neurological: Negative for syncope and numbness. He admits to occasional vertigo. Hematological: Does not bruise/bleed easily. Psychiatric/Behavioral: The patient is not nervous/anxious. PAST MEDICAL & SURGICAL HISTORY Past Medical History: Diagnosis Date ATN (acute tubular necrosis) (HCC) 12/27/2019 Atrial fibrillation (HCC) chronic Cerebrovascular accident (CVA) (HCC) Congestive heart failure (HCC) CVA (cerebral infarction) hx. of Diabetes mellitus (HCC) GERD (gastroesophageal reflux disease) GI bleed Heart murmur Hyperlipidemia Hypertension Joint pain Past Surgical History: Procedure Laterality Date CARDIAC PACEMAKER PLACEMENT CHOLECYSTECTOMY 10/2015 COLONOSCOPY EYE SURGERY eyelid -lt. eye lift FEMUR SURGERY Right 12/22/2019 Procedure: NAILING IM BETSY FEMUR - GAMMA NAIL; Surgeon: Melquiades Baez DO; Location[place] [facility] [place] OTHER SURGICAL HISTORY CATARACT EXTRACTION - bilateral OTHER SURGICAL HISTORY 2015 PACEMAKER INSERTION TONSILLECTOMY AND ADENOIDECTOMY UPPER GASTROINTESTINAL ENDOSCOPY N/A 12/29/2019 Procedure: EGD; Surgeon: Lamont Acuña MD; Location: [facility] [place] [facility] MEDICATIONS Home Medications Outpatient Encounter Medications as of 02/06/2020 Medication Sig Dispense Refill albuterol 90 mcg/puff inhaler Inhale 2 puffs into the lungs every 6 hours as needed for Wheezing or Shortness of Breath 1 Inhaler 0 allopurinol (ZYLOPRIM) 100 mg tablet Take 1 tablet by mouth daily. 90 tablet 3 apixaban (ELIQUIS) 2.5 mg tablet Take 2.5 mg by mouth 2 times daily ascorbic acid (VITAMIN C) 500 MG tablet Take 500 mg by mouth daily. (Patient taking dif ferently: Take 500 mg by mouth Daily. Takes tablets M,W,F,Sun, only takes 4x per week) budesonide-formoterol (SYMBICORT) 160-4.5 mcg/puff inhaler Inhale 2 puffs into the lung s 2 times daily 1 Inhaler 0 carvedilol (COREG) 25 mg tablet Take 25 mg by mouth 2 times daily (with breakfast & din ner) docusate sodium (COLACE) 50 MG capsule Take 50 mg by mouth 2 times daily ferrous sulfate 325 mg tablet Take 65 mg of iron by mouth every other day. [DISCONTINUED] furosemide (LASIX) 40 mg tablet Take 40 mg by mouth 2 times daily [DISCONTINUED] insulin lispro (HUMALOG) 100 units/mL injection (vial) Inject 0-12 Units under the skin 3 times daily (with meals). 10 mL 0 magnesium hydroxide (MILK OF MAGNESIA) 400 mg/5 mL suspension Take by mouth Daily as ne eded for Constipation meclizine (ANTIVERT) 25 mg tablet Take 1 tablet by mouth 3 (three) times daily as neede d. (Patient taking differently: Take 25 mg by mouth 3 times daily as needed (takes rarely).) 90 tablet 0 melatonin 5 mg tablet Take by mouth nightly as needed for Insomnia metFORMIN (GLUCOPHAGE-XR) 500 mg 24 hr tablet Take 500 mg by mouth 3 times daily pantoprazole (PROTONIX) 40 mg tablet Take 1 tablet by mouth 2 times daily (before meals ) for 90 days. 60 tablet 3 polyethylene glycol (MIRALAX) 17 g packet Take 17 g by mouth Daily pravastatin (PRAVACHOL) 80 MG tablet Take 40 mg by mouth nightly. (Patient taking diffe rently: Take 40 mg by mouth nightly. Take one half tablet by mouth nightly) tamsulosin (FLOMAX) 0.4 mg CAPS Take 0.4 mg by mouth daily (after breakfast) terazosin (HYTRIN) 10 MG capsule Take 10 mg by mouth daily with dinner. [DISCONTINUED] torsemide (DEMADEX) 20 mg tablet Take 20 mg by mouth Daily torsemide (DEMADEX) 20 mg tablet Take 1 tablet (20 mg total) by mouth 2 times daily 30 tablet 2 No facility-administered encounter medications on file as of 02/06/2020. Allergies Allergies Allergen Reactions Adhesive & Tape Other (See Comments) Blistering Codeine Nausea And Vomiting and Vertigo Morphine And Related Nausea Only Nausea, Slow to recover Silicone Rash Blistering FAMILY HISTORY Family History Problem Relation Age of Onset Heart disease Father Cancer Sister Heart disease Brother Hypertension Brother SOCIAL HISTORY Social History Socioeconomic History Marital status: Spouse name: Not on file Number of children: Not on file Years of education: Not on file Highest education level: Not on file Occupational History Not on file Social Needs Financial resource strain: Not on file Food insecurity Worry: Not on file Inability: Not on file Transportation needs Medical: Not on file Non-medical: Not on file Tobacco Use Smoking status: Former Smoker Packs/day: 0.75 Years: 35.00 Pack years: 26.25 Quit date: 1981 Years since quittin.4 Smokeless tobacco: Never Used Substance and Sexual Activity Alcohol use: Not Currently 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 Drug use: Never Comment: Drug use: No Sexual activity: Not on file Lifestyle Physical activity Days per week: Not on file Minutes per session: Not on file Stress: Not on file Relationships Social connections Talks on phone: Not on file Gets together: Not on file Attends mormonism service: Not on file Active member of club or organization: Not on file Attends meetings of clubs or organizations: Not on file Relationship status: Not on file Intimate partner violence Fear of current or ex partner: Not [...] has lived in the area since 1955 PHYSICAL EXAM Vital Signs: BP 118/46 | Pulse 61 | Ht 1.651 m (5' 5") | Wt 76.2 kg (168 lb) | SpO2 100 % | BMI 27.96 kg/m GENERAL: Thin male, in no distress, he ambulates with a wheelchair. Appears approximately stated age. HEENT: Normocephalic, atraumatic. EYES: PERRL, sclerae anicteric, no xanthelsasmas NECK: No JVD, lymphadenopathy, thyromegaly, bruits. Carotid pulses are 2+ bilaterally. LUNGS: Clear bilaterally, with no rales, rhonchi, respirations unlabored. Bibasilar expira tory wheezing noted on physical exam. HEART: Nondisplaced PMI, irreg irreg, S1, S2 normal. II/ systolic murmur, no rubs or gal lops noted. ABDOMEN: Soft, nontender, no organomegaly, masses or bruits. Bowel sounds are normal in a ll 4 quadrants. EXTREMITIES: 2+ edema on right leg, 1+ on left leg. Radial pulses 2+ bilaterally. DP and P T pulses are 2+ bilaterally. SKIN: Warm and dry, capillary refill is normal, no lesions. NEUROLOGIC: Awake, alert and oriented x 3. No focal motor deficits. PSYCHIATRIC: Appropriate, affect appears normal DATA Lab Results Component Value Date WBC 6.66 01/01/2020 HGB 10 (A) 01/27/2020 HCT 26.5 (L) 01/01/2020 PLT 91 (L) 01/01/2020 Lab Results Component Value Date INR 1.3 12/29/2019 Lab Results Component Value Date NA 137 01/27/2020 K 4.0 01/27/2020 CL 101 01/27/2020 CO2 23 01/27/2020 BUN 72 (A) 01/27/2020 CREA 2.06 (A) 01/27/2020 MG 2.0 01/27/2020 AST 27 01/27/2020 ALT 19 01/27/2020 BNP 506 (H) 07/26/2017 TSH 5.82 (H) 07/26/2017 Lab Results Component Value Date TSH 5.82 (H) 07/26/2017 EKG: Last Echo: 09/23/2019 Normal left ventricular systolic function, ejection fraction 55 to 60% mid to basal inferio r and septal wall hypokinesia. Mildly enlarged right ventricular cavity Pacer wire visualized in the right ventricle Severe tricuspid regurgitation with severe pulmonary hypertension, right ventricular systol ic pressure was estimated at 80 mmHg. Mild to moderate mitral regurgitation Mild to moderate aortic regurgitation Last stress test: 09/08/15 IMPRESSION: 1. Normal study. No evidence of ischemia or infarction. LVEF 64 % 2. Stress ECG: Paced rhythm precludes ECG diagnosis. 3. Occasional PVCs detected. 4. No Lexiscan induced chest pain. 5. No previous test for comparison. Last cath: Carotid US: AAA screening: Lower extremity US: OTHERS: 11/11/19 IMPRESSION: 1. Normal pacemaker function. 2. No atrial lead. 3. No ventricular high rate episodes were noted. ASSESSMENT & PLAN 1. Chronic atrial fibrillation 2. Stroke in 2006- right sided weakness and facial droop 3. History PPM for SSS 4. HFpEF 5. Mild-Mod MR 6. Severe TR 7. Severe pulmonary HTN RVSP is 79mmHg 8. HTN 9. HLD 10. DM II 11. Cirrhosis 12. CKD 13. Anemia/GI bleed -The patient is a very pleasant 89-year-old male who presents to the cardiology office toda y with his daughter to establish care for the above past medical histories. The patient had a recent hospitalization for a right hip fracture status post right hip surgical repair. H is hospitalization was complicated by hospital-acquired pneumonia and acute GI bleed due to a bleeding duodenal ulcer which was cauterized during EGD. His anticoagulation was held. R ecently, he has been doing fair. He has resumed anticoagulation. He admits to some persist ent shortness of breath. He appears near euvolemic on physical exam but does have diffuse e xpiratory wheezing on physical exam. He is supposed to be on albuterol and Symbicort on dis charge but never received these medications. We will give him a one-time prescription for b oth of these to see if he gets improvement in his symptoms. There was also some confusion a s to which diuretic he should be on. Presently, he is on both Lasix and torsemide. I advis ed him to discontinue Lasix and continue torsemide only. -Continue Eliquis 2.5 mg by mouth twice daily Continue carvedilol 25 mg by mouth twice daily Continue pravastatin 40 mg by mouth daily Continue torsemide 20 mg by mouth twice daily We will give a one-time prescription for albuterol and Symbicort -Follow-up in 3 months with Charlee Polanco Thank you for allowing me to participate in the care of this patient. Primary Care Physician: MD Dina Nobles DO 02/06/2020 documented in this enco unter Plan of Treatment +--------+ + + + + | Date | Type | Specialty | Care Team | Description | +--------+ + + + + | 03/23/ | Preadmit | Pre-Admission | Anna Edouard, | | | 2020 | Visit | Testing | MD [address] | | | | | | [place] [address] | | | | | | [phone] | | | | | | | | +--------+ + + + + | 03/24/ | Hospital | | Anna Eoduard, | Esophagitis | | 2020 | Encounter | | MD [address] | | | | | | [place] [address] | | | | | | [phone] | | | | | | | | +--------+ + + + + | 03/24/ | Surgery | | Anna Edouard, | EGD | | 2020 | | | MD [address] | | | | | | [place] [address] | | | | | | [phone] | | | | | | | | +--------+ + + + + | 03/31/ | Office | Orthopedic Surgery | Melquiades Baez | | | 2019 | Visit | | DO [address] | | | | | | [place], | | | | | | [place] [address] | | | | | | [phone] | | | | | | | | +--------+ + + + + | 04/21/ | Office | Nephrology | Isiah Jade MD | | | 2019 | Visit | | [address] | | | | | | [address] [place] | | | | | | [address] | | | | | | | | +--------+ + + + + | 05/07/ | Office | Cardiology | Charlee Oswald | | | 2019 | Visit | | [address] | | | | | | [address] | | | | | | [place] [address] | | | | | | [phone] | | | | | | | [...] + + documented in this encounter Results ECG 12 lead (02/06/2020 12:55 PM PDT) + + + + + [...] STACY | | | | | | [address] ([id number]) on | | | | [...] Primary Atrial fibrillation | + + | Hypertension goal BP (blood pressure) < 140/80 Unspecified essential hypertension | + + | Chronic diastolic heart failure (HCC) Chronic diastolic heart failure | + + | Moderate to severe pulmonary hypertension (HCC) Other chronic pulmonary heart | | diseases | + + | Moderate tricuspid regurgitation Diseases of tricuspid valve | + + | Esophagitis - Primary Esophagitis, unspecified | + + | Esophagitis Esophagitis, unspecified | + + documented in this encounter
--- OUTSIDE RECORDS SUMMARY | ~2020-03-21 | XMS | Encounter Summary ---
Demographics + + + | Address | [address] | | | [place] [address] | + + + | Home Phone [...] [place] | | | | | [address] | | + + + + + | Deanna Lawson | ECON | Unknown | | + + + + + Care Team Providers + +------+ + | Care Gauge Controller Name | Role | Phone | + +------+ + | Barbara Gilman MD | PCP | | + +------+ + Encounter Details +--------+ + + + + | Date | Type | Department | Care Team | Description | +--------+ + + + + | 01/02/ | Orders Only | [facility] | Isiah Jade MD | Hypertension goal BP | | 2020 | | NEPHROLOGY [place] | [address] [place] | (blood pressure) < | | | | [address] [place] | [address] [place], [place] | 140/80 (Primary Dx); | | | | [address] [place], [place] | [address] | Chronic kidney | | | | [address] | | disease, stage IV | | | | [phone] | | (severe) (HCC); ATN | | [...] | | | | | [place] [address] | | | | | | [phone] | | | | | | | | +--------+ + + + + | 03/24/ | Hospital | | Anna Edouard, | Esophagitis | | 2020 | Encounter | | MD [address] | | | | | | [place] [address] | | | | | | [phone] | | | | | | | | +--------+ + + + + | 03/24/ | Surgery | | Anna Edouard | EGD | | 2019 | | | [address] | | | | | | [place] [address] | | | | | | [phone] | | | | | | | | +--------+ + + + + | 03/31/ | Office | Orthopedic Surgery | Melquiades Baez | | | 2019 | Visit | | DO [address] | | | | | | [place], | | | | | | [place] [address] | | | | | | [phone] | | | | | | | | +--------+ + + + + | 04/21/ | Office | Nephrology | Isiah Jade MD | | | 2019 | Visit | | [address] [facility] [place] | | | | | | [address] [place] | | | | | | [address] | | | | | | | | +--------+ + + + + | 05/07/ | Office | Cardiology | Charlee Oswald | | | 2019 | Visit | | [address] | | | | | | [address] | | | | | | [place] [address] | | | | | | [phone] | | | | | | | [...] | Chronic kidney disease, stage IV (severe) ([facility]) Chronic kidney disease, Stage IV | | (severe) | + + | ATN (acute tubular necrosis) ([facility]) Acute kidney failure with lesion of tubular | | necrosis | + + | Esophagitis - Primary Esophagitis, unspecified | + + | Esophagitis Esophagitis, unspecified | + + documented in this encounter"
--- OUTSIDE RECORDS SUMMARY | ~2020-03-21 | XMS | Encounter Summary ---
Demographics + + + | Address | [address] | | | [place] [address] | + + + | Home Phone [...] [place] | | | | | [address] | | + + + + + | Deanna Lawson | ECON | Unknown | | + + + + + Care Team Providers + +------+ + | Care Platform Mill Supervisor Name | Role | Phone | + +------+ + | Barbara Gilman MD | PCP | | + +------+ + Encounter Details +--------+ + + + + | Date | Type | Department | Care Team | Description | +--------+ + + + + | 09/08/ | Orders Only | [facility] | Todd Iqbal Ajith | | | 2016 | | CARDIOLOGY HYDER | MD [address] | | | | | [address] | [address] | | | | | [address] | [place] [address] | | | | | [place], [place] | [phone] | | | | | [address] | | | | | | [phone] | | | +--------+ + + + [...] | | | | | [place] [address] | | | | | | [phone] | | | | | | | | +--------+ + + + + | 03/24/ | Hospital | | Anna Edouard, | Esophagitis | | 2020 | Encounter | | MD [address] | | | | | | [place] [address] | | | | | | [phone] | | | | | | | | +--------+ + + + + | 03/24/ | Surgery | | Anna Edouard, | VANDANA | | 2019 | | | [address] | | | | | | [place] [address] | | | | | | [phone] | | | | | | | | +--------+ + + + + | 03/31/ | Office | Orthopedic Surgery | Melquiades Baez | | | 2019 | Visit | | DO [address] | | | | | | [place], | | | | | | [place] [address] | | | | | | [phone] | | | | | | | | +--------+ + + + + | 04/21/ | Office | Nephrology | Isiah Jade MD | | | 2019 | Visit | | [address] [facility] | | | | | | [address] [place] | | | | | | [address] | | | | | | | | +--------+ + + + + | 05/07/ | Office | Cardiology | Charlee Oswald | | | 2019 | Visit | | [address] | | | | | | [address] | | | | | | [place] [address] | | | | | | [phone] | | | | | | | [...] Performed At | + + + | [facility] Nuclear Lexiscan Stress Test History: | [...] Kobe, Leonides Conversion - 04/11/2019 9:[address] [facility] | | Nuclear Lexiscan Stress Test [...]
--- OUTSIDE RECORDS SUMMARY | ~2020-03-21 | XMS | Encounter Summary ---
Demographics + + + | Address | [address] | | | [place] [address] | + + + | Home Phone [...] [place] | | | | | [address] | | + + + + + | Deanna Lawson | ECON | Unknown | | + + + + + Care Team Providers + +------+ + | Care Fulfillment Representative Name | Role | Phone | + +------+ + | Barbara Gilman MD | PCP | | + +------+ + Encounter Details +--------+ + + + + | Date | Type | Department | Care Team | Description | +--------+ + + + + | 09/02/ | Orders Only | [facility] | Enoch Thompson, | | | 2019 | | CARDIOLOGY OPHELIA | [address] | | | | | [address] | [facility], | | | | | [place], [place] | [place] [address] | | | | | [address] | [phone] | | | | | [phone] | | | +--------+ + + + [...] | | | | | [place] [address] | | | | | | [phone] | | | | | | | | +--------+ + + + + | 03/24/ | Hospital | | Anna Edouard, | Esophagitis | | 2020 | Encounter | | MD [address] | | | | | | [place] [address] | | | | | | [phone] | | | | | | | | +--------+ + + + + | 03/24/ | Surgery | | Anna Edouard | EGD | | 2019 | | | [address] | | | | | | [place] [address] | | | | | | [phone] | | | | | | | | +--------+ + + + + | 03/31/ | Office | Orthopedic Surgery | Melquiades Baez | | | 2019 | Visit | | DO [address] | | | | | | [place], | | | | | | [place] [address] | | | | | | [phone] | | | | | | | | +--------+ + + + + | 04/21/ | Office | Nephrology | Isiah Jade MD | | | 2019 | Visit | | [address] [facility] | | | | | | [address] [place] | | | | | | [address] | | | | | | | | +--------+ + + + + | 05/07/ | Office | Cardiology | Charlee Oswald | | | 2019 | Visit | | [address] | | | | | | [address] | | | | | | [place] [address] | | | | | | [phone] | | | | | | | [...]
--- OUTSIDE RECORDS SUMMARY | ~2020-03-21 | XMS | Encounter Summary ---
Demographics + + + | Address | [address] | | | [place] [address] | + + + | Home Phone [...] [place] | | | | | [address] | | + + + + + | Deanna Lawson | ECON | Unknown | | + + + + + Care Team Providers + +------+ + | Care Rock Star Name | Role | Phone | + [...] | | | mellitus | [address] | [facility], | | | | | with other | [place] | [place] | | | | | diabetic | [address] | [address] | | | | | kidney | Phone: | Phone: | | | | | complication | [phone] | [phone] | | | | | (HCC) | Fax: | Fax: | | | | | Chronic | [phone] | [phone] | | | | | diastolic | [...] + + | 01/20/ | Office | [facility] | Melquiades Baez | Right hip pain | | 2020 | Visit | [facility] | [address] | (Primary Dx); | | | | MEDICINE [address] | [facility], | Orthopedic aftercare | | | | [address] [facility] | [place] [address] | | | | | [place], [place] | [phone] | | | | | [address] | | | | | | [phone] | | | +--------+---------+ + + + [...] Baez DO - 01/21/2020 1:40 PM PDT [facility] Orthopaedic and Sports Medicine Service: Orthopedic [...] Baez DO has created this entry using retsCloud Voice Recognition software and NicOx macros. The entry has been reviewed and [...] [address] | | | | | | [place] [address] | | | | | | [phone] | | | | | | | | +--------+ + + + + | 03/24/ | Hospital | | Anna Edouard, | Esophagitis | | 2019 | Encounter | | MD [address] | | | | | | [place] [address] | | | | | | [phone] | | | | | | | | +--------+ + + + + | 03/24/ | Surgery | | Anna Edouard, | VANDANA | | 2019 | | | [address] | | | | | | [place] [address] | | | | | | [phone] | | | | | | | | +--------+ + + + + | 03/31/ | Office | Orthopedic Surgery | Melquiades Baez | | | 2019 | Visit | | [address] | | | | | | [place], | | | | | | [place] [address] | | | | | | [phone] | | | | | | | | +--------+ + + + + | 04/21/ | Office | Nephrology | Isiah Jade MD | | | 2019 | Visit | | [address] [facility] | | | | | | [address] [place] | | | | | | [address] | | | | | | | | +--------+ + + + + | 05/07/ | Office | Cardiology | Charlee Oswald | | | 2019 | Visit | | [address] | | | | | | [address] | | | | | | [place] [address] | | | | | | [phone] | | | | | | | [...] Baez DO has created this entry using GOkey | | | Recognition software and [employer]. The entry has been reviewed | | | and there may still exist sound alike word errors. | | | | | |Electronically signed by: Melquiades Baez DO 01/24/2020 1:05 PM | | | | | | | | |Melquiades Baez DO has created this entry using [employer]key | | |Recognition software and [employer]. The entry has been reviewed and | [...]
--- OUTSIDE RECORDS SUMMARY | ~2020-03-21 | XMS | Clinical Summary ---
Demographics + + + | Address | [address] | | | [place] [address] | + + + | Home Phone | | + + + | Preferred Language | Unknown | + + + | Marital Status | | + + + | Adventist Affiliation | 1001 | + + + | Race | Unknown | + + + | Ethnic Group | Unknown | + + + Author + + + | Author | [facility] | | | and [place] | + + + | Organization | [facility] | | | [...] [place] | | | | | [address] | | + + + + + | Bekah Lawson | ECON | Unknown | | + + + + + Care Team Providers + +------+ + | Care Chili Pepper Grinder Name | Role | Phone | + [...] | | | | + + +---------+---+------+------+-------+ Active Problems + + + | Problem | Noted Date | + + + | Esophagitis | 03/13/2020 | + + + + + | Overview: Added automatically from request for surgery | | [id number] | + + + + + | Anemia of chronic [...] + + + + | Overview: His [id number]- VASC score is 6( HTN, age, stroke, [...] mild concentric LVH. 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 The | | pacing [...] | +--------+ + + + + | 03/20/ | Telephone | Gastroenterology | Anna Edouard, | Pre-Procedure (CALL) | | 2019 | | | MD | | +--------+ + + + + | 03/16/ | Telephone | Orthopedic Surgery | Melquiades Baez | Screening For | 2019 | | | DO Regulo | Communicable Disease | +--------+ + + + + | 02/26/ | Telephone | Gastroenterology | Hakeem Perry, | Procedure | | 2019 | | | Heel Blacker | | +--------+ + + + + | 02/19/ | Telephone | Nephrology | Isiah Jade MD | Other (Lab Results ) | | 2019 | | | | | +--------+ + + + + | 02/17/ | Hospital | Radiology | Melquiades Baez | Right hip pain | 2019 | Encounter | | Regulo, DO | | +--------+ + + + + | 02/17/ | Office | Orthopedic Surgery | Melquiades Baez | Right hip pain | 2019 | Visit | | DO [...] 02/12/ | Documentati | Nephrology | Silva Paz | Results | | 2019 | on | | Heel Blacker | (interpath-02/04/2020 | | | | | | ) | +--------+ + + + + | 02/05/ | Office | Cardiology | Terrance Sanchez DO | Permanent atrial | 2019 | Visit | | | fibrillation (HCC) | | | | [...] | | | | | hypertension ([facility]); | | | | | | Moderate [...] | | | | | ([facility]); Secondary | | | | | | hyperparathyroidism | | | | | | ([facility]); CKD (chronic | | | | | | kidney disease) | | | | | | stage 3, GFR 30-59 | | | | | | ml/min ([facility]); ATN | | | | | | (acute tubular | | | | | | necrosis) ([facility]) | +--------+ + + + + | 01/30/ | Telephone | Orthopedic Surgery | Melquiades Baez | Other | | 2019 | | | DO Regulo | | +--------+ + + + + | 01/29/ | Office | Nephrology | Isiah Jade MD | ATN (acute tubular | | 2019 | Visit | | | necrosis) ([facility]) | | | | | | (Primary Dx); CKD | | | | | | (chronic kidney | | | | | | disease) stage 3, | | | | | | GFR 30-59 ml/min | | | | | | ([facility]); Hypertension | | | | | | [...] | | | | | ([facility]); 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 | | | | | | failure, stage 3 | | | | | | (moderate) ([facility]); | | | | | | Secondary | | | | | | hyperparathyroidism | | | | | | ([facility]); Bilateral leg | | | | | | edema; Electrolyte | | | | | | imbalance risk | +--------+ + + + + | 01/29/ | Documentati | Nephrology | Nelson | Results (01/22/20, | | 2020 | on | | Kita Sterling | 01/27/20) | | | | | Baker Pie | | +--------+ + + + + | 01/26/ | Documentati | Nephrology | Nelson | Cayetano (PCP progress | | 2019 | on | | Kita Sterling | note 01/23/20) | | | | | Baker Pie | | +--------+ + + + + | 01/20/ | Hospital | Radiology | Melquiades Baez | Right hip pain | 2019 | Encounter | | DO Regulo | | +--------+ + + + + | 01/20/ | Office | Orthopedic Surgery | Melquiades Baez | Right hip pain | 2019 | Visit | | DO [...] | Documentati | Nephrology | Nelson, | Other (Dr. Jade | | 2019 | on | | Kita Sterling | orders) | | | | | Baker Pie | | +--------+ + + + + [...] Nephrology | Isiah Jade MD | Cayetano ([facility] F/U | 2019 | | | | ) | +--------+ + + + + | 12/28/ | Anesthesia | | Maco Wolf, | | 2019 | Event | | INDUSTRIAL FURNACE FABRICATOR | | +--------+ + + + + | 12/28/ | Surgery | | Lamont Hernandez MD | VANDANA | 2019 | | | | | +--------+ + + + + | 12/21/ | Anesthesia | | Ja Hill, | | 2019 | Event | | INDUSTRIAL FURNACE FABRICATOR | | +--------+ + + + + [...] + | Father | | | [place], [place] | | | | (Age | | [...] + + | Sister | | | [place] | | | | (Age | | [...] | | | | | [place] [address] | | | | | | [phone] | | | | | | | | +--------+ + + + + | 03/24/ | Hospital | | Shehzadi, Anna, | Esophagitis | | 2019 | Encounter | | MD [address] | | | | | | [place] [address] | | | | | | [phone] | | | | | | | | +--------+ + + + + | 03/24/ | Surgery | | Anna Edouard, | EGD | | 2019 | | | MD [address] | | | | | | [place] [address] | | | | | | [phone] | | | | | | | | +--------+ + + + + | 03/31/ | Office | Orthopedic Surgery | Melquiades Baez | | | 2019 | Visit | | DO [address] | | | | | | [address] | | | | | | [place] [address] | | | | | | [phone] | | | | | | | | +--------+ + + + + | 04/21/ | Office | Nephrology | Isiah Jade MD | | 2019 | Visit | | [address] [facility] | | | | | | [address] [place], [place] | | | | | | [address] | | | | | | | | +--------+ + + + + | 05/07/ | Office | Cardiology | Charlee Oswald | | | 2019 | Visit | | [address] | | | | | | [address] | | | | | | [place] [address] | | | | | | [phone] | | | | | | | | +--------+ + + + + + + + + + | Health Maintenance | Due Date | Last | Comments | | | | Done | | + + + + + | Medication | | | | | Management | 2 | | | + + [...] | + + + + + | Med Mgmt: HBA1C | | 07/26/20 | | | | 8 | 17 | | + + + + + | Adult Annual | | | | | Wellness Visit | 9 | | | + + + + + | Med Mgmt: Uric Acid | | 04/01/20 | | | | 0 | 19, | | | | | 01/08/20 | | | | | 19 | | + + + + + | Vaccine: Influenza | | | | | (#1) | 0 | | | + + + + + | Med Mgmt: HCT | | 01/27/20 | | | | 1 | 20, | | | | | 01/01/20 | | | | | 20, | | | | | 12/31/19 | | | | | 20, | | | | | Addition | | | | | al | | | | | history | | | | | exists | | + + + + + | Med Mgmt: HGB | | 01/27/20 | | | | 1 | 20, | | | | | 01/01/20 | | | | | 20, | | | | | 12/31/19 | | | | | 20, | | | | | Addition | | | | | al | | | | | history | | | | | exists | | + + + + + | Med Mgmt: Cr | | 02/04/20 | | | | 1 | 20, | | | | | 01/27/20 | | | | | 20, | | | | | 01/22/20 | | | | | 20, | | | | | Addition | | | | | al | | | | | history | | | | | exists | | + + + + + | Med Mgmt: K | | 02/04/20 | | | | 1 | 20, | | | | | 01/27/20 | | | | | 20, | | | | | 01/22/20 | | | | | 20, | | | | | Addition | | | | | al | | | | | history | | | | | exists | | + + + + + | Med Mgmt: Na | | 02/04/20 | | | | 1 | 20, | | | | | 01/27/20 | | | | | 20, | | | | | 01/22/20 | | | | | 20, | | | | | Addition | | | | | al | | | | | history | | | | | exists | | + + + + + | Med Mgmt: eGFR | | 02/04/20 | | | | 1 | 20, | | | | | 01/27/20 | | | | | 20, | | | | | 01/22/20 | | | | | 20, | | | | | Addition | | | | | al | | | | | history | | | | | exists [...] | + +--------+------+ +--------+--------+--------+ | Implant Id: [id number] - | Cardia | | | | | [id number] | | Pacer-02/04/2019Implanted: | c | | | | | /[id number] | | Qty: 1 on 02/04/2019 by [...] | | 07/20/ | 3060-0 | | [id number] - SnaImplanted: | | | MEDICAL - | | 2023 | 100S | | Qty: 1 on 12/22/2019 by | | | STRY | | | /NA | | Melquiades Baez DO at [facility] | | | | | | /[id number] | | [facility] | | | | | [...] | /NA | | DO Regulo at [facility] | | | | | | /[id number] | | [facility] | | | | | | 9B [...] | /NA | | DO Regulo at [facility] | | | | | | /[id number] | | [facility] | | | | | | 99 | + +--------+------+ +--------+--------+--------+ | Trochanteric NailImplanted: | | | Gardner | | 07/20/ | [id number] | | Qty: 1 on 12/22/2019 by | | | Medical | | 2023 | 200S | | Melquiades Baez DO at [facility] | | | | | | /NA | | [facility] | | | | | [...] + +--------+ + + + | *TERMED* TN UPPER GI | Routin | 12/29/2019 | [...] + +--------+ + + + | POC NATHANAEL CACERES, | Routin | 12/22/2019 | [...] | | | Dr | | | [place] | +---+--------+ + +--------+ +---+ + | [...] created this | | | entry using Sapient Recognition software and EPIC | | | macros. The entry has been reviewed and there may still exist sound | | | alike word errors. | | | | | |Electronically signed by: Melquiades Baez DO 02/18/2020 1:54 PM PDT | | | | | | | | |Melquiades Baez DO has created this entry using Sapient | | |Recognition software and EPIC macros. The entry has been reviewed and [...] 1.001 - 1.030 | | | | Gu[place], | | | | | | Urine [...] | | POC | performed at [facility];[address] | | LABORATORY | | | | [address];[place], [place] | | | | | | [address] | | | | + + + + + + + + | Specimen | + + | | + + + + + + + | Performing | Address | City/State/Zipcode | Phone Number | | Organization | | | | + + + + + | [facility] | [address] | [place] [address] | [phone] | + + + + + CBC [...] 0.02Comment: Testing | 0.00 - 0.10 | [place] | | | Absolute | performed at [facility];[address] | [address] | LABORATORY | | | | [address];[place] | | | | | | [address] | | | | + + + + + + + + | Specimen | + + | Blood | + + + + + + + | Performing | Address | City/State/Zipcode | Phone Number | | Organization | | | | + + + + + | [facility] | [address] | [place] [address] | [phone] | + + + + + Hemoglobin [...] | | | | performed at [facility];[address] | | LABORATORY | | | | [facility];[place], [place] | | | | | | [address] | | | | + + + + + + + + | Specimen | + + | Blood | + + + + + + + | Performing | Address | City/State/Zipcode | Phone Number | | Organization | | | | + + + + + | [facility] | [address] | [place] [address] | [phone] | + + + + + Surgical [...] | | technical component was performed by [email or web address] [address] [place] [address] | | | [place] [address] (Salesperson Hosiery: Padmini Sellers MD; CLIA# | | | [id number]). Professional interpretation was performed [email or web address] | | | Diagnostics[address] | | | [place] [address] (Salesperson Hosiery: Oscar Maynard M.D.; CLIA#: | | | [id number]). Diagnostician: Padmini Sellers | | | MDPathologistElectronically [...] | |The technical component was performed by [email or web address], [address] [place] [address] (Salesperson Hosiery: Padmini Sellers MD; CLIA# [id number]). Professional interpretation was performed by | | |[email or web address], [facility], [address] [place] [id number] (Salesperson Hosiery: Oscar Maynard M.D.; CLIA#: [id number]). | | | | | |Diagnostician: Padmini [...] | | | + +---------+ + + GRUPOD (12/29/2019 8:36 AM PDT) + + | Specimen | + + | | + + + + + | Narrative | Performed At | + + + | [facility] | | | Patient Name: Andres Guzmán | | | Procedure Date: 12/29/2019 8:36 AMMRN: [id number] | | | of : 1930 | [...] the anesthesiologist and the | | | procurement technician in the pre-procedure area in the [...] | | | with Gold probe 7 Japanese x 5 pulses was successful with | [...] | | | AMNumber of Addenda: 0 [facility] | | | - Check hemoglobin q 6 hours for one day. | | | | | | | | |LAMONT HERNANDEZ MD | | |12/29/2019 10:19:54 AM | | |This report has been signed electronically. | | | | | |Note Initiated On: 12/29/2019 8:36 AM | | |Number of Addenda: 0 | | | | | | [facility] | | + + + + [...] | | | | performed at [facility] | | | | | | [facility];[place], [place] | | | | | | [address] | | | | + + + + + + + + | Specimen | + + | Blood | + + + + + + + | Performing | Address | City/State/Zipcode | Phone Number | | Organization | | | | + + + + + | [facility] | [address] | [place] [address] | [phone] | + + + + + Fecal [...] | LABORATORY | | | | [facility];[address];[place] [address] | | | | + + + + + + + + | Specimen | + + | Stool - Stool | | specimen (specimen) | + + + + + + + | Performing | Address | City/State/Zipcode | Phone Number | | Organization | | | | + + + + + | [facility] | [address] | [place] [address] | [phone] | + + + + + Red [...] BANK | Testing performed at | | [facility] | | | COMMENT | [facility];[address] | | LABORATORY | | | | [address];[place] [address] | | | | + + + + + + + + | Specimen | + + | | + + + + + + + | Performing | Address | City/State/Zipcode | Phone Number | | Organization | | | | + + + + + | [facility] | [address] | [place] [address] | [phone] | + + + + + Type [...] + + + | BB BAND | [id number] | | [facility] | | | | | | LABORATORY | | + + + + + + | UNIT # | [id number] | | [facility] | | | | [...] + + + | UNIT # | [id number] | | [facility] | | | | [...] | | RESULT | performed at [facility];[address] | | LABORATORY | | | | [address];[place] | | | | | | [address] | | | | + + + + + + + + | Specimen | + + | Blood | + + + + + + + | Performing | Address | City/State/Zipcode | Phone Number | | Organization | | | | + + + + + | [facility] | [address] | [place] [address] | [phone] | + + + + + Procalcitonin [...] PROCALCITON | 0.41Comment: | <0.5 ng/mL | [facility] | | | IN | INTERPRETIVE | [...] | | | | | at [facility];[address] [place] [address] | | | | | | [facility];[place] [address] | | | | + + + + + + + + | Specimen | + + | Blood | + + + + + + + | Performing | Address | City/State/Zipcode | Phone Number | | Organization | | | | + + + + + | [facility] | [address] | [place] [address] | [phone] | + + + + + Vitamin D, Deficiency Screen (25-Hydroxy) (12/27/2019 5:04 AM PDT) + + + + + + | Component | Value | Ref Range | Performed | Pathologist | | | | | At | Signature | + + + + + + | Vit D, | 25.2 (L)Comment: Vitamin | 30.0 - 100.0 | [facility] | | | 25-Hydroxy | D deficiency has been | ng/mL | LABORATORY | | | | defined by the [place] | | | | | | ofMedicine [...] IOM | | | | | | ([place] of Medicine). | | | | | [...] | | | | | performed at [facility], | | | | | | [address], | | | | | | [facility] [address] | | | | + + + + + + + + | Specimen | + + | Blood | + + + + + + + | Performing | Address | City/State/Zipcode | Phone Number | | Organization | | | | + + + + + | [facility] | [address] | [place] [address] | [phone] | + + + + + Potassium (12/27/2019 12:08 AM PDT) + + + + + + | Component | Value | Ref Range | Performed | Pathologist | | | | | At | Signature | + + + + + + | K | 4.0Comment: Testing | 3.5 - 4.9 | [place] | | | | performed at [facility];[address] | mmol/L | LABORATORY | | | | [address];[place], [place] | | | | | | [address] | | | | + + + + + + + + | Specimen | + + | Blood | + + + + + + + | Performing | Address | City/State/Zipcode | Phone Number | | Organization | | | | + + + + + | [facility] | [address] | [place] [address] | [phone] | + + + + + Complement C3 Ag (12/26/2019 12:33 PM PDT) + + + + + + | Component | Value | Ref Range | Performed | Pathologist | | | | | At | Signature | + + + + + + | C3 | 53 (L)Comment: Testing | 82 - 167 mg/dL | [facility] | | | COMPLEMENT | performed at [facility], | | LABORATORY | | | | [address], | | | | | | [place] [address] | | | | + + + + + + + + | Specimen | + + | | + + + + + + + | Performing | Address | City/State/Zipcode | Phone Number | | Organization | | | | + + + + + | [facility] | [address] | [place] [address] | [phone] | + + + + + Complement C4 Ag (12/26/2019 12:33 PM PDT) + + + + + + | Component | Value | Ref Range | Performed | Pathologist | | | | | At | Signature | + + + + + + | C4 | 15Comment: Testing | 14 - 44 mg/dL | [facility] | | | COMPLEMENT | performed at [facility], | | LABORATORY | | | | [address], | | | | | | [facility] [address] | | | | + + + + + + + + | Specimen | + + | | + + + + + + + | Performing | Address | City/State/Zipcode | Phone Number | | Organization | | | | + + + + + | [facility] | [address] | [place] [address] | [phone] | + + + + + Parathyroid Hormone, Intraoperative (12/26/2019 4:25 AM PDT) + + + + + + | Component | Value | Ref Range | Performed | Pathologist | | | | | At | Signature | + + + + + + | PTH Intact | 167.0 (H)Comment: | 8.7 - 79.6 | [facility] | | | | Testing performed at | pg/mL | LABORATORY | | | | [facility];[address] | | | | | | [address];[place] [address] | | | | + + + + + + + + | Specimen | + + | | + + + + + + + | Performing | Address | City/State/Zipcode | Phone Number | | Organization | | | | + + + + + | [facility] | [address] | [place] [address] | [phone] | + + + + + ECHO [...] | | | | performed at [facility];[address] | | LABORATORY | | | | [address];[place], [place] | | | | | | [address] | | | | + + + + + + + + | Specimen | + + | Blood | + + + + + + + | Performing | Address | City/State/Zipcode | Phone Number | | Organization | | | | + + + + + | [facility] | [address] | [place] [address] | [phone] | + + + + + Immunoglobulin, Free Light Chain (12/25/2019 4:22 AM PDT) + + + + + + | Component | Value | Ref Range | Performed | Pathologist | | | | | At | Signature | + + + + + + | [place] Free | 121.2 (H) | 3.3 - [...] + + + + + + | [place] | 1.25Comment: Testing | 0.26 - 1.65 | [facility] | | | a Free | performed at [facility] | | LABORATORY | | | Light Chain | [place] [address] | | | | | Ratio | [place] [address] | | | | + + + + + + + + | Specimen | + + | Blood | + + + + + + + | Performing | Address | City/State/Zipcode | Phone Number | | Organization | | | | + + + + + | [facility] | [address] | [place] [address] | [phone] | + + + + + Sedimentation Rate (12/25/2019 4:22 AM PDT) + + + + + + | Component | Value | Ref Range | Performed | Pathologist | | | | | At | Signature | + + + + + + | ESR | 6Comment: Testing | 0 - 20 mm/Hr | [facility] | | | | performed at [facility], [address] | | LABORATORY | | | | [address], | | | | | | [place] [address] | | | | + + + + + + + + | Specimen | + + | Blood | + + + + + + + | Performing | Address | City/State/Zipcode | Phone Number | | Organization | | | | + + + + + | [facility] | [address] | [place] [address] | [phone] | + + + + + Glomerular [...] [place] | | | | | | [address] | | | | + + + + + + + + | Specimen | + + | Blood | + + + + + + + | Performing | Address | City/State/Zipcode | Phone Number | | Organization | | | | + + + + + | [facility] | [address] | [place] [address] | [phone] | + + + + + Hepatitis [...] | | | | | | 0.9The [facility] recommends | | | | | | that a positive HCV | | | | | | antibody resultbe | | | | | | followed up with a HCV | | | | | | Nucleic Acid | | | | | | Amplificationtest | | | | | | ([id number]).Testing | | | | | | performed at [facility], | | | | | | [address], | | | | | | [facility] [address] | | | | + + + + + + + + | Specimen | + + | Blood | + + + + + + + | Performing | Address | City/State/Zipcode | Phone Number | | Organization | | | | + + + + + | [facility] | [address] | [place] [address] | [phone] | + + + + + Cytoplasmic [...] | | | | | with both TN-3 and | | | | | | MPO-ANCA enzyme | | | | | | immunoassays. Bert as | | | | | | 5% serum samples are | | | | | | positive only by | | | | | | EIA.Ref. AM J Clin | | | | | | Pathol 1998;111:507-513. | | | | | | | [...] | | | | | performed by [facility], | | | | | | [address] [facility], | | | | | | [facility] [address] | | | | + + + + + + + + | Specimen | + + | Blood | + + + + + + + | Performing | Address | City/State/Zipcode | Phone Number | | Organization | | | | + + + + + | [facility] | [address] | [place] [address] | [phone] | + + + + + Lactate [...] | | | | performed at [facility];[address] | | LABORATORY | | | | [address];[place] | | | | | | [address] | | | | + + + + + + + + | Specimen | + + | Blood | + + + + + + + | Performing | Address | City/State/Zipcode | Phone Number | | Organization | | | | + + + + + | [facility] | [address] | [place] [address] | [phone] | + + + + + Protein/Creatinine Ratio, Urine (12/25/2019 12:01 AM PDT) + + + + + + | Component | Value | Ref Range | Performed | Pathologist | | | | | At | Signature | + + + + + + | PRO/CREA | 0.942Comment: Testing | | [facility] | | | RATIO,URINE | performed at [facility], [address] | | LABORATORY | | | | [address], | | | | | | [place] [address] | | | | + + + + + + + + | Specimen | + + | Urine | + + + + + + + | Performing | Address | City/State/Zipcode | Phone Number | | Organization | | | | + + + + + | [facility] | [address] | [place] [address] | [phone] | + + + + + Protein, Urine, Random (12/25/2019 12:01 AM PDT) + + + + + + | Component | Value | Ref Range | Performed | Pathologist | | | | | At | Signature | + + + + + + | Protein, | 131Comment: NO NORMAL | mg/dL | [facility] | | | Urine | [facility] | | LABORATORY | | | | performed at [facility], [address] | | | | | [address], | | | | | | [place] [address] | | | | + + + + + + + + | Specimen | + + | | + + + + + + + | Performing | Address | City/State/Zipcode | Phone Number | | Organization | | | | + + + + + | [facility] | [address] | [place] [address] | [phone] | + + + + + Creatinine, [...] | 139.0Comment: NO NORMAL | mg/dL | [facility] | | | random | [facility] | | LABORATORY | | | urine | performed at [facility], [address] | | | | | [address] [facility], | | | | | | [place] [address] | | | | + + + + + + + + | Specimen | + + | | + + + + + + + | Performing | Address | City/State/Zipcode | Phone Number | | Organization | | | | + + + + + | [facility] | [address] | [place] [address] | [phone] | + + + + + XR [...] | | Arterial, | performed at [facility];[address] | | LABORATORY | | | POC | [address];[place], [place] | | | | | | [id number] | | | | + + + + + + + + | Specimen | + + | | + + + + + + + | Performing | Address | City/State/Zipcode | Phone Number | | Organization | | | | + + + + + | [facility] | [address] | [place] [address] | [phone] | + + + + + Coronavirus (COVID-19) NAAT (12/24/2019 1:10 PM PDT) + + + + + + | Component | Value | Ref Range | Performed | Pathologist | | | | | At | Signature | + + + + + + | SARS-CoV-2, | NEGATIVEComment: Testing | NEG | ALEX | | | NAAT | performed at [facility];[address] | | LABORATORY | | | (COVID-19) [address];[place] | | | | | | [address] | | | | + + + + + + + + | Specimen | + + | Tissue - Entire | | nasopharynx (body | | structure) | + + + + + + + | Performing | Address | City/State/Zipcode | Phone Number | | Organization | | | | + + + + + | [facility] | [address] | [place] [address] | [phone] | + + + + + Culture, [...] LABORATORY | | | | [place] [address] | | | | + + + + + + | RESULT | NO GROWTH 6 DAYS | | [facility] | | | | | | LABORATORY | | + + + + + + | RESULT | Testing performed at | | [facility] | | | | [address], [address] | | LABORATORY | | | | [place] | | | | | | [id number]: Testing | | | | | | performed at [facility], [address] | | | | | | [address], [place] | | | | | | [address] | | | | + + + + + + + + | Specimen | + + | Blood - Peripheral | | blood specimen | | (specimen) | + + + + + + + | Performing | Address | City/State/Zipcode | Phone Number | | Organization | | | | + + + + + | [facility] | [address] | [place] [address] | [phone] | + + + + + Urinalysis [...] - 1.030 | [facility] | | | [place], | | | LABORATORY | | | [...] | | | Urine | performed at [facility], [address] | | LABORATORY | | | | [address], | | | | | | [place] [address] | | | | + + + [...] | + + + + + | [facility] | [address] | [place] [address] | [phone] | + + + + + Sodium, [...] | | | urine | performed at [facility], [address] | | | | | | [address] [facility], | | | | | | [place] [address] | | | | + + + [...] | + + + + + | [facility] | [address] | [place] [address] | [phone] | + + + + + Lactic Acid (12/24/2019 12:27 PM PDT) + + + + + + | Component | Value | Ref Range | Performed | Pathologist | | | | | At | Signature | + + + + + + | Lactate, | 1.6Comment: Testing | 0.4 - 2.0 | [facility] | | | Serum | performed at [facility];[address] | mmol/L | LABORATORY | | | | [address];[place] | | | | | | [address] | | | | + + + + + + + + | Specimen | + + | Blood | + + + + + + + | Performing | Address | City/State/Zipcode | Phone Number | | Organization | | | | + + + + + | [facility] | [address] | [place] [address] | [phone] | + + + + + CBC [...] | | | | performed at [facility];[address] | | | | | [address];[place], [place] | | | | | | [address] | | | | + + + + + + + + | Specimen | + + | Blood | + + + + + + + | Performing | Address | City/State/Zipcode | Phone Number | | Organization | | | | + + + + + | [facility] | [address] | [place] [address] | [phone] | + + + + + Phosphorus (12/23/2019 4:04 AM PDT) + + + + + + | Component | Value | Ref Range | Performed | Pathologist | | | | | At | Signature | + + + + + + | Phosphorus | 4.6Comment: Testing | 2.3 - 4.8 mg/dL | [facility] | | | | performed at [facility];[address] | | LABORATORY | | | | [address];[place], [place] | | | | | | [address] | | | | + + + + + + + + | Specimen | + + | Blood | + + + + + + + | Performing | Address | City/State/Zipcode | Phone Number | | Organization | | | | + + + + + | [facility] | [address] | [place] [address] | [phone] | + + + + + Hemoglobin (12/22/2019 9:37 PM PDT) + + + + + + | Component | Value | Ref Range | Performed | Pathologist | | | | | At | Signature | + + + + + + | Hemoglobin | 9.1 (L)Comment: Testing | 13.2 - 17.0 | [facility] | | | | performed at [facility];[address] | g/dL | LABORATORY | | | | [address];[place] | | | | | | [address] | | | | + + + + + + + + | Specimen | + + | Blood | + + + + + + + | Performing | Address | City/State/Zipcode | Phone Number | | Organization | | | | + + + + + | [facility] | [address] | [place] [address] | [phone] | + + + + + Hematocrit (12/22/2019 9:37 PM PDT) + + + + + + | Component | Value | Ref Range | Performed | Pathologist | | | | | At | Signature | + + + + + + | Hematocrit | 27.4 (L)Comment: Testing | 39.0 - 50.0 % | [facility] | | | | performed at [facility] | | LABORATORY | | | | [facility];[place], [place] | | | | | | [address] | | | | + + + + + + + + | Specimen | + + | Blood | + + + + + + + | Performing | Address | City/State/Zipcode | Phone Number | | Organization | | | | + + + + + | [facility] | [address] | [place] [address] | [phone] | + + + + + Red Blood Cells (PRBC) - Transfuse (12/22/2019 5:12 PM PDT)Only the most recent of 2 resul ts within the time period is included.FL C-Arm (12/22/2019 10:28 AM PDT) + + [...] | | POC | performed at [facility];[address] | g/dL | LABORATORY | | | | [address];[place], [place] | | | | | | [address] | | | | + + + + + + + + | Specimen | + + | | + + + + + + + | Performing | Address | City/State/Zipcode | Phone Number | | Organization | | | | + + + + + | [facility] | [address] | [place] [address] | [phone] | + + + + + Airway (12/22/2019 9:14 AM PDT) + + + | Narrative | Performed At | + + + | Ja Sergio, INDUSTRIAL FURNACE FABRICATOR 12/22/2019 9:14 AM Anesthesia Airway | | [...] | | POC | performed at [facility];[address] | g/dL | LABORATORY | | | | [address];[place], [place] | | | | | | [address] | | | | + + + + + + + + | Specimen | + + | | + + + + + + + | Performing | Address | City/State/Zipcode | Phone Number | | Organization | | | | + + + + + | [facility] | [address] | [place] [address] | [phone] | + + + + + from [...] +--------+ +---------+--------+ | MEDICARE | MEDICA | [id number] | 04/21/19 | [phone] | | Medica | | | RE | | 97-Pre | 5 | | re | | | PART A | | sent | | | | | | AND B | | | | | | + +--------+ +--------+ +---------+--------+ | INDIVIDUAL ASSURANCE | INDIVI | [id number] | | | | Indemn | | [...] Robert | al/Fam | | 1930 | [phone] | [place] | | | quique | | | 1 (Home) | [address] | + +--------+ +--------+ + + Advance Directives + + + + + | Type | Date Recorded | Patient | Explanation | | | | Vocational Training Director | | + + + + + | Power of | 02/18/2020 1:07 | | BEKAH MCDONNELL | | Accounts Payable Bookkeeper | PM | | | + + + + + | Advance | 03/16/2020 9:24 | | | | Directive | AM | | | + + + + [...]
--- OUTSIDE RECORDS SUMMARY | ~2020-03-21 | XMS | Encounter Summary ---
Demographics + + + | Address | [address] | | | [place] [address] | + + + | Home Phone | | + + + | Preferred Language | Unknown | + + + | Marital Status | | + + + | Evangelical Affiliation | 1001 | + + + | Race | Unknown | + + + | Ethnic Group | Unknown | + + + Author + + + | Author | [facility] | | | and [place] | + + + | Organization | [facility] | | | [...] [place] | | | | | [address] | | + + + + + | Deanna Lawson | ECON | Unknown | | + + + + + Care Team Providers + +------+ + | Care Medicare Coordinator Name | Role | Phone | + +------+ + | Barbara Gilman MD | PCP | | + +------+ + Reason for Visit + + + | Reason | Comments | + + + | Device Check | Elliston pacemaker in office device check w/Jay | | (In-office) | | + + + Encounter Details +--------+ + + + + | Date | Type | Department | Care Team | Description | +--------+ + + + + | 05/07/ | Procedure | 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 healthcare insurance sales agent: Thi Burch RN Associated attestation - Enoch [place] MD - 06/01/2019 1:40 PM PDTA generator change o ut was performed on February 04, 2019. Normal device function was seen today for this Elliston Sc ientific single-chamber device. The pacing threshold [...] [address] | | | | | | [place] [address] | | | | | | [phone] | | | | | | | | +--------+ + + + + | 03/24/ | Hospital | | Shehzadi, Anna, | Esophagitis | | 2019 | Encounter | | MD [address] | | | | | | [place] [address] | | | | | | [phone] | | | | | | | | +--------+ + + + + | 03/24/ | Surgery | | Anna Edouard, | EGD | | 2019 | | | MD [address] | | | | | | [place] [address] | | | | | | [phone] | | | | | | | | +--------+ + + + + | 03/31/ | Office | Orthopedic Surgery | Melquiades Baez | | | 2019 | Visit | | DO [address] | | | | | | [place] | | | | | | [place] [address] | | | | | | [phone] | | | | | | | | +--------+ + + + + | 04/21/ | Office | Nephrology | Isiah Jade MD | | 2019 | Visit | | [address] [facility] | | | | | | [address] [place] | | | | | | [address] | | | | | | | | +--------+ + + + + | 05/07/ | Office | Cardiology | Charlee Oswald | | | 2019 | Visit | | [address] | | | | | | [address] | | | | | | [place] [address] | | | | | | [phone] | | | | | | | [...] | | scheduled encounter for additional details. healthcare insurance sales agent: Thi Burch RN | | | | | |See device data attached to scheduled encounter for additional | | |details. | | | | | |healthcare insurance sales agent: Thi Burch RN | | | | [...]
--- OUTSIDE RECORDS SUMMARY | ~2020-03-21 | XMS | Encounter Summary ---
Demographics + + + | Address | [address] | | | [place] [address] | + + + | Home Phone [...] [place] | | | | | [address] | | + + + + + | Deanna Lawson | ECON | Unknown | | + + + + + Care Team Providers + +------+ + | Care Grassroots Organizer Name | Role | Phone | + [...] Provider Unknown | | | | | [place], [place] | | | | | | [address] | (Fax) | | | | | [phone] | | | +--------+ + + + [...] [address] | | | | | | [place] [address] | | | | | | [phone] | | | | | | | | +--------+ + + + + | 03/24/ | Hospital | | Anna Edouard, | Esophagitis | | 2019 | Encounter | | MD [address] | | | | | | [place] [address] | | | | | | [phone] | | | | | | | | +--------+ + + + + | 03/24/ | Surgery | | Anna Edouard | EGD | | 2019 | | | [address] | | | | | | [place] [address] | | | | | | [phone] | | | | | | | | +--------+ + + + + | 03/31/ | Office | Orthopedic Surgery | Melquiades Baez | | | 2019 | Visit | | DO [address] | | | | | | [place], | | | | | | [place] [address] | | | | | | [phone] | | | | | | | | +--------+ + + + + | 04/21/ | Office | Nephrology | Isiah Jade MD | | | 2019 | Visit | | [address] [facility] | | | | | | [address] [place] | | | | | | [address] | | | | | | | | +--------+ + + + + | 05/07/ | Office | Cardiology | Charlee Oswald | | | 2019 | Visit | | [address] | | | | | | [address] | | | | | | [place] [address] | | | | | | [phone] | | | | | | | [...]
--- OUTSIDE RECORDS SUMMARY | ~2020-03-21 | XMS | Encounter Summary ---
Demographics + + + | Address | [address] | | | [place] [address] | + + + | Home Phone [...] [place] | | | | | [address] | | + + + + + | Deanna Lawson | ECON | Unknown | | + + + + + Care Team Providers + +------+ + | Care Neurobiologist Name | Role | Phone | + [...] | | | | | atrial | ENROLLMENT MANAGEMENT DIRECTOR [address] | [place] | | | | | fibrillation | [address] | [address] | | | | | (HCC) | [address] | [address] | | | | | Presence of | [place] | | | | | cardiac | [address] | [address] | | | | | pacemaker | [...] + + | 06/27/ | Office | [facility] | Tatoleena Charlee | 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 Also worked for a [employer] company and then a [employer], but now just enjoys his leisure ti [...] rhonchi noted, respirations unlab ored HEART: [facility] pacemaker site well Healed, stable to [...] : 02/04/2019: ( Dr. Thompson) : new [employer] Accolade MRI com patible model L310, serial #[id number] pacemaker. The current lead is a [employer] model 4136, serial #[id number].Mode for pacing, VVIR with dual-sensor technology programmed on. T he lower rate will be 60 and upper rate 120beats per minute. The output will be 2 volts at 0.4 milliseconds with sensitivity of 2.5 millivolts. Pacing and sensing will be bipolar Previous Implant Pacemaker/ICD: 07/30/2010, BS [employer] S601, SN: [id number]. [facility]. Last pacer interrogation: 05/07/2019: ( Dr. Thompson) : Normal device function was seen today f or this [employer] single-chamber device. The pacing threshold was [...] change, except less pul monary hypertension Echo:07/26/2017: [facility]: EF >70 percent. LV normal in [...] PHS 75,TOTAL BILI 0.6,ALB 3.9 Labs: 02/18/2018: ([facility]). CBC: WBC 6.2, RBC 3.46, [...] 73. Thyroid: TSH 3.55 Labs: 08/23/2018: ( [facility] ER): CBC: WBC 6.6, RBC 2.92, hemoglobin [...] He had a recent clinic visit with field spec Dr. Thompson, and pacemaker has stable d [...] [facility] in September, and I will follow-up with [...] contain inadvertent rec ognition errors. Maximilian MCCONNELL [facility] Cardiology 06/28/2019 Apurav orozco in this encounter Plan of Treatment +--------+ + + + + | Date | Type | Specialty | Care Team | Description | +--------+ + + + + | 03/23/ | Preadmit | Pre-Admission | Anna Edouard, | | | 2019 | Visit | Testing | [address] | | | | | | [place] [address] | | | | | | [phone] | | | | | | | | +--------+ + + + + | 03/24/ | Hospital | | Anna Edouard, | Esophagitis | | 2020 | Encounter | | MD [address] | | | | | | [place] [id number] | | | | | | [phone] | | | | | | | | +--------+ + + + + | 03/24/ | Surgery | | Anna Edouard, | EGD | | 2020 | | | MD [address] | | | | | | [place] [id number] | | | | | | [phone] | | | | | | | | +--------+ + + + + | 03/31/ | Office | Orthopedic Surgery | Melquiades Baez | | | 2019 | Visit | | DO [address] | | | | | | [place], | | | | | | [place] [address] | | | | | | [phone] | | | | | | | | +--------+ + + + + | 04/21/ | Office | Nephrology | Isiah Jade MD | | | 2019 | Visit | | [address] | | | | | | [address] [place] | | | | | | [address] | | | | | | | | +--------+ + + + + | 05/07/ | Office | Cardiology | Charlee Oswald | | | 2019 | Visit | | [address] | | | | | | [address] | | | | | | [place] [id number] | | | | | | [phone] | | | | | | | [...] On apixaban therapy | + + | Esophagitis - Primary Esophagitis, unspecified | + + | Esophagitis Esophagitis, unspecified | + + documented in this encounter
--- OUTSIDE RECORDS SUMMARY | ~2020-03-21 | XMS | Encounter Summary ---
Demographics + + + | Address | [address] | | | [place] [address] | + + + | Home Phone [...] [place] | | | | | [address] | | + + + + + | Deanna Lawson | ECON | Unknown | | + + + + + Care Team Providers + +------+ + | Care Semiconductor Manufacturing Technician Name | Role | Phone | [...] + | 11/10/ | Procedure | [facility] | | Cardiac pacemaker in | | 2019 | visit | CARDIOLOGY [place] | | situ (Primary Dx) | | | | [address] | | | | | | [place] | | | | | | [address] | | | | | | [phone] | | | +--------+ + + + [...] of this encounter Procedure Notes Mercedez Bains, Informaticist - 11/11/2019 8:00 AM PDTAssociated Order(s): DEVICE INT ERROGATION- REMOTEProcedure(s): DEVICE INTERROGATION- REMOTEPre-Procedure Diagnose(s): Prese nce of cardiac pacemaker PACEMAKER REMOTE INTERROGATION REPORT Name: Andres Guzmán PCP: Barbara Gilman MD : 1930 Primary cardiology provider: Charlee Oswald Primary electrophysiology provider: Enoch Thompson Device analyst: Apptentive Device type: Single chamber (Ventricular) Battery Longevity: [...] [address] | | | | | | [place] [address] | | | | | | [phone] | | | | | | | | +--------+ + + + + | 03/24/ | Hospital | | Anna Edouard, | Esophagitis | | 2020 | Encounter | | MD [address] | | | | | | [place] [address] | | | | | | [phone] | | | | | | | | +--------+ + + + + | 03/24/ | Surgery | | MissyAnna hendrix, | EGD | | 2019 | | | [address] | | | | | | [place] [address] | | | | | | [phone] | | | | | | | | +--------+ + + + + | 03/31/ | Office | Orthopedic Surgery | Melquiades Baez | | | 2019 | Visit | | [address] | | | | | | [address], | | | | | | [place] [address] | | | | | | [phone] | | | | | | | | +--------+ + + + + | 04/21/ | Office | Nephrology | Isiah Jade MD | | | 2019 | Visit | | [address] [place] | | | | | | [address] [place] | | | | | | [address] | | | | | | | | +--------+ + + + + | 05/07/ | Office | Cardiology | Charlee Oswald | | | 2019 | Visit | | [address] | | | | | | [address] | | | | | | [place] [address] | | | | | | [phone] | | | | | | | [...] Mercedez Jensen | LUCA | | Herson, Informaticist [facility]12/2019 [facility] | | [facility] REPORT Name: Andres Guzmán PCP: Barbara Elkins | | | MD Mukul : 1930MRN: [id number] Primary cardiology | | | provider: Charlee Oswald Primary electrophysiology provider: Enoch | | | Jay Device analyst: [employer] Device type: Single | | | [...]
--- OUTSIDE RECORDS SUMMARY | ~2020-03-21 | XMS | Encounter Summary ---
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[place] | | | | | pulmonary | Phone: | [phone] Phone: | | | | | hypertension | [phone] | [phone] | | | | | (HCC) Risk | Fax: | Fax: | | | | | factors for | [phone] | [phone] | | | | | obstructive | [...] + + | 10/27/ | Office | [facility] | Charlee Oswald | Permanent atrial | | 2020 | Visit | CARDIOLOGY ALYX | [address] | fibrillation (HCC) | | | | [address] | [address] [address] | (Primary Dx); | | | | [address] | [place] [address] | Cardiac pacemaker in | | | | [place] | [phone] | situ; 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 Dorsey at [facility] , call [phone] for an appoi ntment next week I will have you establish care with Dr. Sanchez who will be your computational linguist See me back in 4 weeks documented [...] reported by him as being negative His [id number]- VASC score is 6( HTN, age, stroke, [...] recreational or illicit drug use. Exercises with [employer] and yard work, tolerates without chest pain [...] : 02/04/2019: ( Dr. Thompson) : new [employer] Accolade MRI com patible model L310, serial #[id number] pacemaker. The current lead is a [employer] model 4136, serial #[id number].Mode for pacing, VVIR with dual-sensor technology programmed on. T he lower rate will be 60 and upper rate 120beats per minute. The output will be 2 volts at 0.4 milliseconds with sensitivity of 2.5 millivolts. Pacing and sensing will be bipolar Previous Implant Pacemaker/ICD: 07/30/2010, BS [employer] S601, SN: [id number]. [facility]. Addendum: Last [...] function was seen today for th is [employer] single-chamber device. The pacing threshold was [...] 15 mmHg. Normal pulmonic valve with mild IL. Sinus of Valsalva dilated about 4.26 cm, [...] change, except less pulmonar y hypertension Echo:07/26/2017: [facility]: EF >70 percent. LV normal [...] PHS 75,TOTAL BILI 0.6,ALB 3.9 Labs: 02/18/2018: ([facility]). CBC: WBC 6.2, RBC 3.46, [...] Labs: 08/23/2018: ( [facility]): CBC: WBC 6.6, RBC 2.92, hemoglobin [...] stopped, as he has a very high GBT2EM1- VASC sco re of 6. For his [...] evaluation with Dr. Dorsey at the [facility] sleep disorders clinic due to his [...] he referred the patie nt to Dr. iL for further evaluation and treatment in this [...] contain inadvertent rec ognition errors. Maximilian MCCONNELL [facility] Cardiology 10/28/2019 Adoyvette gregory in this encounter Plan of Treatment +--------+ + + + + | Date | Type | Specialty | Care Team | Description | +--------+ + + + + | 03/23/ | Preadmit | Pre-Admission | Anna Edouard, | | | 2019 | Visit | Testing | MD [address] | | | | | | [place] [address] | | | | | | [phone] | | | | | | | | +--------+ + + + + | 03/24/ | Hospital | | Anna Edouard, | Esophagitis | 2019 | Encounter | | MD [address] | | | | | | [place] [address] | | | | | | [phone] | | | | | | | | +--------+ + + + + | 03/24/ | Surgery | | Anna Edouard | EGD | | 2019 | | | [address] | | | | | | [place] [address] | | | | | | [phone] | | | | | | | | +--------+ + + + + | 03/31/ | Office | Orthopedic Surgery | Melquiades Baez | | | 2019 | Visit | | [address] | | | | | | [place], | | | | | | [place] [address] | | | | | | [phone] | | | | | | | | +--------+ + + + + | 04/21/ | Office | Nephrology | Isiah Jade MD | | | 2019 | Visit | | [address] [facility] | | | | | | [address] [place] | | | | | | [address] | | | | | | | | +--------+ + + + + | 05/07/ | Office | Cardiology | Charlee Oswald | | | 2019 | Visit | | [address] | | | | | | [address] | | | | | | [place] [address] | | | | | | [phone] | | | | | | | [...]
--- OUTSIDE RECORDS SUMMARY | ~2020-03-21 | XMS | Encounter Summary ---
Demographics + + + | Address | [address] | | | [place] [address] | + + + | Home Phone [...] [place] | | | | | [address] | | + + + + + | Deanna Lawson | ECON | Unknown | | + + + + + Care Team Providers + +------+ + | Care Drafter Geological Name | Role | Phone | + +------+ + PCP | Unavailable | + +------+ + Encounter Details +--------+ + + + + | Date | Type | Department | Care Team | Description | +--------+ + + + + | 01/07/ | Orders Only | [facility] | Conversion | | | 2019 | | NEPRHOLOGY [place] | Transaction, | | | | | [address] | Provider Unknown | | | | | [address] [place], [place] | [phone] | | | | | [address] | | | | | | [phone] | | | +--------+ + + + [...] | | | | | [place] [address] | | | | | | [phone] | | | | | | | | +--------+ + + + + | 03/24/ | Hospital | | Anna Edouard, | Esophagitis | | 2020 | Encounter | | MD [address] | | | | | | [place] [address] | | | | | | [phone] | | | | | | | | +--------+ + + + + | 03/24/ | Surgery | | Anna Edouard, | VANDANA | | 2019 | | | [address] | | | | | | [place] [address] | | | | | | [phone] | | | | | | | | +--------+ + + + + | 03/31/ | Office | Orthopedic Surgery | Melquiades Baez | | | 2019 | Visit | | DO [address] | | | | | | [place], | | | | | | [place] [address] | | | | | | [phone] | | | | | | | | +--------+ + + + + | 04/21/ | Office | Nephrology | Isiah Jade MD | | | 2019 | Visit | | [address] | | | | | | [address] [place] | | | | | | [address] | | | | | | | | +--------+ + + + + | 05/07/ | Office | Cardiology | Darek Charlee | | | 2019 | Visit | | [address] | | | | | | [address] | | | | | | [place] [address] | | | | | | [phone] | | | | | | | [...] - 1.030 | EXTERNAL | | | [facility], | | | LAB | | | [...]
--- OUTSIDE RECORDS SUMMARY | ~2020-03-21 | XMS | Encounter Summary ---
Demographics + + + | Address | [address] | | | [place] [address] | + + + | Home Phone [...] [place] | | | | | [address] | | + + + + + | Deanna Lawson | ECON | Unknown | | + + + + + Care Team Providers + +------+ + | Care Relay Record Clerk Name | Role | Phone | [...] + + | 12/20/ | Hospital | 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 No immediate indication for WEAVING MACHINE OPERATOR. Patient was also seen by physical therapy and occupational therapy and was recommended for discharging to SNF. However patient will b e going to [facility] bed at this time. Patient also [...] No CVA tenderness, no spinal tenderness Disposition: [facility] Condition: Fair No discharge procedures on [...] BUNCREARATIO 30 01/01/2020 PTH 72.57 (A) 04/01/2019 [id number] 25.2 (L) 12/27/2019 CALCIUM 8.6 01/01/2020 PHOS [...] been following up with ENEDINA mena in [place]. He has unrecovered acute kidney injury and a higher baseline creatinine. At this time there is no clinical uremia, refractory volume overload, refractory acidosis, refractory hyperkalemia and no urgent indication of starting WEAVING MACHINE OPERATOR. Neither is there an indication for [...] Incentive spirometry. Transfuse Prn. No indication for WEAVING MACHINE OPERATOR for now. Await renal recovery. On [...] was completed later after rounds. Dictation software, BESOS, was used which may contain error for [...] but not limited to potential need for WEAVING MACHINE OPERATOR . This is a patient with [...] is waiting downstairs. Deanna Doe RN, CMSRN, [facility] Inpatient Wound Ostomy Care [phone] 01/01/2020 11:46 AM Chai, Savana Irving RN [...] BUNCREARATIO 25 12/31/2019 PTH 72.57 (A) 04/01/2019 [id number] 25.2 (L) 12/27/2019 CALCIUM 8.5 12/31/2019 PHOS [...] been following up with ENEDINA mena in [place]. He has unrecovered acute kidney injury and a higher baseline creatinine. At this time there is no clinical uremia, refractory volume overload, refractory acidosis, refractory hyperkalemia and no urgent indication of starting WEAVING MACHINE OPERATOR. Neither is there an indication for [...] Incentive spirometry. Transfuse Prn. No indication for WEAVING MACHINE OPERATOR for now. Await renal recovery. I [...] was completed later after rounds. Dictation software, BESOS, was used which may contain error for [...] but not limited to potential need for WEAVING MACHINE OPERATOR . This is a patient with [...] injuries: see wound RN note for treatment. [facility] ed, continue wound care at swing bed, send with extra dressing supplies. *Metabolic bone disorder: elevated PTH and phosphorus. Treatment per lens finisher (see thei r note). Subjective No chest [...] who was admitted as a transfer from [facility] due t o a mechanical fall [...] finding placement and he was accepted by [facility] in [place], [place] for rehabilitation purposes. Hospital stay was [...] Medications Current Facilty-Administered PRN Medications [facility] in [facility] Medication Dose Route Frequency Provider [...] but remains week, he is accepted at [facility] in [place] with discharge plans tomorrow for rehabilit ation [...] discharge plans to [facility] in [facility] tomorrow. DVT prophylaxis with SCD's only due to risks of bleeding. Discharge plans tomorrow to [facility] in [place], [place] for rehabi litation. Called his daughter Ms. Huerta and left a message with updated information at phone number [phone]. Jerry Chino MD 12/30/2019 tHolden bui PA - 12/30/2019 12:35 PM PDTFormatting of this note might be different from the [facility] Service: Gastroenterology Consult Progress Note Hospital Day: LOS: 9 days SUBJECTIVE Patient Summary: This is an 89-year-old male with multiple medical problems and a his tory of hypertension, diabetes, CKD stage III who was transferred from [facility] t o a fall and [...] deficits. PSYCHIATRIC: Appropriate, affect appears normal [facility] G[facility]enterology Patient Name: Andres Guzmán Procedure Date: [...] physician, the nurse, the anesthesiologist and the audio technician in the pre-procedure area in the [...] successful. Thermal coagulation with Gold probe 7 Chilean x 5 pulses was successful with hemostasis. [...] 8:36 AM Number of Addenda: 0 [facility] DATA Lab Results Component Value Date WBC [...] ll with any questions. Florina Cantu PA-C [facility] Gastroenterology 12/30/2019 Associated attestation - Lamont Hernandez MD - 12/31/2019 2:17 PM [id number] male with GI bleeding due to duodenal ulcer with visible vessel. The ulcer and visible vessel were tr eated with injection and gold probe thermal coagulation. The patient was seen and examined by me personally. The case was discussed with the physician's porcelain buildup assistant and I agree with the assessment [...] Dr. Baez. I assumed care from Dr. Tpaia 12/27/19. 12/28/19 He received 2 units of [...] BUNCREARATIO 23 12/30/2019 PTH 72.57 (A) 04/01/2019 [id number] 25.2 (L) 12/27/2019 CALCIUM 8.6 12/30/2019 PHOS [...] been following up with ENEDINA mena in [place]. That had improved with nonoliguric state but now seems to have leveled off at around 3 and this may be reflection of unrecovered acute kidney injury and a higher baseline creatinine. At this time there is no clinical uremia, refractory volume overload, refractory acidosis, refractory hyperkalemia and no urgent indication of starting WEAVING MACHINE OPERATOR. Neither is there an indication for [...] Incentive spirometry. Transfuse Prn. No indication for WEAVING MACHINE OPERATOR for now. Await renal recovery. I [...] was completed later after rounds. Dictation software, BESOS, was used which may contain error for [...] but not limited to potential need for WEAVING MACHINE OPERATOR . This is a patient with [...] BUNCREARATIO 30 12/29/2019 PTH 72.57 (A) 04/01/2019 [id number] 25.2 (L) 12/27/2019 CALCIUM 8.7 12/29/2019 PHOS [...] been following up with ENEDINA mena in [place]. That seems to be improving with nonoliguric state and small reduction in creatinine. At this time there is no clinical uremia, refractory volume overload, refractory acidosis, refractory hyperkalemia and no urgent indication of starting WEAVING MACHINE OPERATOR. Neither is there an indication for [...] Incentive spirometry. Transfuse Prn. No indication for WEAVING MACHINE OPERATOR for now. Await renal recovery. I [...] was completed later after rounds. Dictation software, BESOS, was used which may contain error for [...] but not limited to potential need for WEAVING MACHINE OPERATOR . acetaminophen 1,000 mg Oral 3 [...] who was admitted as a transfer from [facility] due t o a mechanical fall [...] and he was accepted by [facility] in [place], [place] for rehabilitation purposes. Hospita l stay [...] but needs rehabilitation, he is accepted by [facility] in [place], [place] with discharge plans early next weeks [...] another 1 to 2 to SNF in [place], [place] if remains stable and improve d. Called his daughter Ms. Huerta and updated her about plans at phone number [phone]. Jerry Chino MD 12/29/2019 acon, Norma Kilpatrick [...] BUNCREARATIO 28 12/28/2019 PTH 72.57 (A) 04/01/2019 [id number] 25.2 (L) 12/27/2019 CALCIUM 8.5 12/28/2019 PHOS [...] been following up with ENEDINA mena in [place]. That seems to be improving with nonoliguric state and small reduction in creatinine. At this time there is no clinical uremia, refractory volume overload, refractory acidosis, refractory hyperkalemia and no urgent indication of starting WEAVING MACHINE OPERATOR. Neither is there an indication for [...] Incentive spirometry. Transfuse Prn. No indication for WEAVING MACHINE OPERATOR for now. Await renal recovery. I [...] was completed later after rounds. Dictation software, BESOS, was used which may contain error for [...] but not limited to potential need for WEAVING MACHINE OPERATOR . acetaminophen 1,000 mg Oral 3 [...] dinner dextrose 10% pantoprazole 8 mg/hr (12/28/19 5646) orter, DALILA Grant - 12/28/2019 10:49 AM PDT [facility] Service: Orthopedic Surgery Progress Note Hospital Day: [...] DALILA Peralta has created this entry using [employer] Recognition softClub 42cm e and [employer] macros. The entry has been reviewed and [...] who was admitted as a transfer from [facility] due t o a mechanical fall [...] and he was accepted by [facility] in [place], [place] for rehabilitation purposes. Hospita l stay [...] mg 100 mg Oral BID PRN Anders Stoo PA-C HYDROmorphone (DILAUDID) injection 1 mg 1 [...] making slow progress, he is accepted by [facility] in [place], [place] with discharge plans possib ly early [...] 1 to 2 to a SNF in [place], [place] when renal functions are st able and cleared by Nephrology services. Also called his daughter Ms. Huerta and updated her a bout plans at phone number [phone]. Jerry Chino MD 12/28/2019 Ghazal Ferrer COTA [...] been following up with ENEDINA mena in [place]. That seems to be improving with nonoliguric state and small reduction in creatinine. At this time there is no clinical uremia, refractory volume overload, refractory acidosis, refractory hyperkalemia and no urgent indication of starting WEAVING MACHINE OPERATOR. Neither is there an indication for [...] Incentive spirometry. Transfuse Prn. No indication for WEAVING MACHINE OPERATOR for now. Await renal recovery. I [...] but not limited to potential need for WEAVING MACHINE OPERATOR . acetaminophen 1,000 mg Oral 3 [...] Net -400 ml . Treatment plan: per lens finisher; slowly improving. *Blood pressure: labile; See VS [...] disorder: elevated PTH and phosphorus. Treatment per lens finisher (see thei r note). Subjective No chest [...] who was admitted as a transfer from [facility] due t o a mechanical fall [...] trength and mobility. He is accepted by [facility] in [place], [place] and discharge is delayed due to [...] to 3 days to a SNF in [place], [place] when renal functions a re stable and cleared by Nephrology services. Jerry Chino MD 12/27/2019 Linda Montalvo RN - 12/26/2019 5:09 PM PDT [facility] Service: Wound Care Consult Note Hospital Day: [...] questions. Linda Cedeno RN 17:16 [place] [facility] - 12/26/2019 12:55 PM PDTFormatting of [...] who was admitted as a transfer from [facility] due t o a mechanical fall [...] Medications Current Facilty-Administered PRN Medications [facility] in [facility] Medication Dose Route Frequency Provider [...] placement is recommended. 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 Huerta and the at phone number [phone] Code Status: Full Code Regino Greene MD [...] lab follow-up and treatment per hospitalist and lens finisher. *Blood pressure: hypotensive; See VS for BP trending. 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 Huerta and the at phone number [phone] Code Status: Full Code Regino Greene MD [...] with family members today. Inpatient director of pediatric rehabilitation. Code Status: Full Code Rgeino Greene MD 12/23/2019 10:03 PM [place] [facility] - 12/23/2019 12:27 PM PDT . [...] GAMMA NAIL; Surgeon: Melquiades Baez DO; Location: [facility] MAIN OR OTHER SURGICAL HISTORY CATARACT EXTRACTION [...] Electronically Signed by: Lamont Hernandez MD 12/29/2019 [facility] Portions of this chart may have been created with BESOS voice recognition software. Occasi onal wrong-word or sound-alike substitutions may have occurred due to the inherent castañeda itations of voice recognition software. Please read the chart carefully and recognize, using context, where these substitutions have occurred Julián Urbina MD - 12/21/2019 7:38 PM PDTFormatting of this note m ight be different from the original. [facility] Service: Hospitalist History and Physical Date of Admission: Dec 21 2019 Requesting Physician: [facility] emergency Department Reason for Admission: Right comminuted intertrochanteric fracture of the hip CHIEF COMPLAINT: Mechanical fall tripped over side curb landed on the right hip area right hip pain today HISTORY OF PRESENT ILLNESS The patient is a 89 y.o. male Transfer from [facility] after fall with right hip fracture with multiple comor bidities being on Eliquis as well requested for higher level of care to transfer to [facility] wit h orthopedic 89 years old gentleman fall at this morning mechanical fall tripped on the curb and result ed in right hip pain [facility] visited x-ray found to have a [...] and LFT Orthopedic on-call was consulted from [facility] and requested to transfer for higher level of care At [facility] with multiple comorbidities REVIEW OF SYSTEMS 12 [...] transfer lab WBC 5.9 hb10.2 hct 30.5 sty941 potassium 5.1 Bun 85 cre 2.6 Co2-24 [...] as per stated reason Chronic A. fib [id number]- VASC score is 6- Hold Eliquis for [...] Old records reviewed on EMR. Dictation software, BESOS, used which may contain error for similar sounding words even af ter review. Personal communication requested for any clarification. Disposition: inpatient Code Status: FULL CODE Primary Care Physician: MD Julián Nobles MD 12/21/2019 documented in thi s encounter Consult Notes Lamont Hernandez MD - 12/29/2019 10:26 AM PDT Gastroenterology Consultation: [facility] 12/29/2019 Andres Godinezdemetrioprem 89 y.o. [id number] History of present illness: Gastroenterology consultation is requested for evaluation of GI bleeding with melena. This is an 89-year-old male with multiple medical problems and a history of hypertension, d iabetes, CKD stage III who was transferred from [facility] due to a fall and he [...] GAMMA NAIL; Surgeon: Melquiades Baez DO; Location: [facility] OR OTHER SURGICAL HISTORY CATARACT EXTRACTION [...] file Gets together: Not on file Attends episcopal service: Not on file Active member of [...] this chart may have been created with BESOS voice recognition software. Occasi onal wrong-word or sound-alike substitutions may have occurred due to the inherent castañeda itations of voice recognition software. Please read the chart carefully and recognize, using context, where these substitutions have occurred Hayley Peres MD - 12/25/2019 8:46 PM PDT Consulted by [facility] Problem List: Patient Active Problem List [...] with baseline creatinine 1.7 admitted to [facility] on December 20 after a mechanical fall [...] Tristan Gage at the nephrology clinic in [place]. The patien t is poor historian and does not recall seeing a lens finisher in the past. He also not awar [...] IP CONSULT TO WOUND OSTOMY NURSE [facility] Service: Wound Care Consult Note Hospital Day: [...] MD - 12/24/2019 11:33 AM PDT [facility] Service: Physicial Medicine & Rehab Consultation note [...] diabetes, and cirrhosis He was transferred to [facility], and is now s/p ORIF with Dr. [...] GAMMA NAIL; Surgeon: Melquiades Baez DO; Location: [facility]IN OR OTHER SURGICAL HISTORY CATARACT EXTRACTION [...] should consist SNF placement closer to home ([place]). Code Status: Full Code Wing Maire Reed MD 12/24/2019 Melquiades Gill, - 12/22/2019 7:50 AM PDTAssociated Order(s): PROVIDER TO PROVIDER CONSULT [facility] Orthopaedic and Sports Medicine Service: [...] f racture. He was transferred to [facility] for concerns with other comor bidities. He [...] surgery. [facility] cephalo-medullary nail.The risks and [...] might b e different from the original. INTERMEDIATE FACILITY TRANSFER ORDERS Patient Name: Andres Guzmán [...] limb(s)): [x] OT Evaluation & Treat [] COLLECTION DEVELOPMENT LIBRARIAN Evaluation Treat Wound/Skin Care: [] Follow current recommendations of the wound team for treatment. [] Wound Vac management per nursing protocol. Labs/Imaging: [] PT/INR: Frequency per SNF provider Goal INR: [] Fingerstick glucose check before meals and bedtime and PRN [] Labs: Follow up: Melquiades Baez DO [address] [place] [address] [phone] In 2 weeks For post op care Barbara Gilman MD [address] [place] [address] DR Ledy Villafana [place] [phone] In 1 week I have advised this [...] Regino Greene MD, certify that post hospital chcf care is medically necessa ry on a continuing basis for any of the conditions for which he/she received care during thi s hospitalization. Additional Orders/Instructions: Physician's signature: 01/01/2020 10:59 AM [facility] NURSING FACILITY USE ONLY: [] Admitting [...] HIGH Current Discharge Plan Anticipated Discharge Disposition: chcf facility Expected DC Date: 12/31/2019 Barriers to Discharge: placement Steps Taken Toward Discharge: Attended morning rounds, called [facility] and provided upd ate of Pt Next Steps: d/c to [facility] Community Support Services Current Outpt/Agency/Support Groups: none Community Agency Name: none Other Resources: Discharge Transportation Transportation Needs: agency transportation Notes: Pt on course to discharge to [facility] tomorrow. Idalia discusse d with [facility] team and they are accepting Pt tomorrow if Pt is medically ready. Cm will follow for d/c needs that arise. Electronically signed: Ja Marcus RN 12/31/2019 3:54 PM lan of Care - Andrez Llamas, TICKET PULLER - 12/31/2019 2:04 PM PDT Physical Therapy Treatment Note Recommended discharge disposition: chcf facility Post discharge physical therapy recommendation: Equipment [...] Value LTG Status continued at 12/30/2019804 LTG [place] Level supervised at 12/30/2019804 LTG Assistive Device none at 12/30/2019 08 All Transfers Goal Most Recent Value LTG Status new at 12/30/2019804 LTG [place] Level minimum assist (75% patient effort) at 12/30/2019804 LTG Assistive Device 2 wheeled walker (FWW) at 12/30/2019804 Gait Goal Most Recent Value LTG Status new at 12/30/2019804 LTG [place] Level minimum assist (75% patient effort) at [...] concerns. Aware of plan for discharge to [facility] tomorrow and has no concerns regarding disc [...] Physical Therapy Treatment Note Recommended discharge disposition: chcf facility Post discharge physical therapy recommendation: Equipment [...] Bed Mobility Sit to Supine, Level of Camuy: moderate assist (50% patient effort) Safety Issues: decreased use of legs for bridging/pushing Impairments: strength decreased Transfers Chair-Bed, Level of Camuy: moderate assist (50% patient effort) Srw-Smdec-Dqt, Assistive Device: gait belt Sit-Stand, Level of [place]: moderate assist (50% patient effort) Stand-Sit, Level of [place]: moderate assist (50% patient effort) Wqt-Lyvbs-Wdg, Assistive Device: gait belt Safety Issues: balance decreased during turns, step length decreased Impairments: strength decreased Goals Reflects last filed data and may be from multiple contributors. All Bed Mobility Goal Most Recent Value LTG Status continued at 12/30/2019 08 LTG Cam[place] Level supervised at 12/30/2019 08 LTG Assistive Device none at 12/30/2019 08 All Transfers Goal Most Recent Value LTG Status new at 12/30/2019 08 LTG [place] Level minimum assist (75% patient effort) at 12/30/2019 0805 LTG Assistive Device 2 wheeled walker (FWW) at 12/30/2019 0805 Gait Goal Most Recent Value LTG Status new at 12/30/2019 0805 LTG [place] Level minimum assist (75% patient effort) at [...] Bed in low position, gait belt available, gas engine operator compressors socks on. Problem: Skin Injury Risk Increased [...] Physical Therapy Re-Assessment Note Recommended discharge disposition: chcf facility Post discharge physical therapy recommendation: ongoing low intensity therapy, will benefi t from structured setting Equipment Recommendations: (TBD) Barriers to community-based discharge Physical Impairment, Pain, and Fall risk Planned Interventions: balance training, bed mobility training, gait training, home exercis e program, manual therapy techniques, patient/family education, ROM (Range of Motion), stair training, strengthening, stretching, micronesian ball techniques, wheelchair management/propulsio n training Recommended [...] Documentation: sit to/from stand Sit-Stand, Level of Cam[place]: moderate assist (50% patient effort) Stand-Sit, Level of [place]: moderate assist (50% patient effort) Zjc-Izevq-Ddn, Assistive Device: other (see comments)(platform walker ) Maintain Weight Bearing Status: able to maintain weight bearing status Safety Issues: balance decreased during turns Impairments: pain, strength decreased, impaired balance Gait Gait Comments: ambulated with shuffled steps and decreased quita Level of Camuy: moderate assist (50% patient effort) Assistive Device: [...] Value LTG Status continued at 12/30/2019804 LTG [place] Level supervised at 12/30/2019804 LTG Assistive Device none at 12/30/2019 08 All Transfers Goal Most Recent Value LTG Status new at 12/30/2019804 LTG [place] Level minimum assist (75% patient effort) at 12/30/2019804 LTG Assistive Device 2 wheeled walker (FWW) at 12/30/2019804 Gait Goal Most Recent Value LTG Status new at 12/30/2019804 LTG [place] Level minimum assist (75% patient effort) at [...] Hernandez MD at 10:20 AM PDTPlan of Herlnida Silva RN - 12/28/2019 6:38 PM PDTPatient [...] Physical Therapy Treatment Note Recommended discharge disposition: chcf facility Post discharge physical therapy recommendation: Equipment [...] Bed Mobility Supine to Sit, Level of Camuy: moderate assist (50% patient effort) Sit to Supine, Level of Camuy: moderate assist (50% patient effort) Safety Issues: decreased use of legs for bridging/pushing Impairments: strength decreased Transfers Sit-Stand, Level of Camuy: moderate assist (50% patient effort) Stand-Sit, Level of Camuy: moderate assist (50% patient effort) Bsw-Gtyrp-Qab, Assistive Device: other (see comments)(UP walker) Safety Issues: balance decreased during turns, step length decreased Impairments: strength decreased Gait Level of Camuy: moderate assist (50% patient effort) Assistive Device: [...] LTG Status new at 12/23/2019 1600 LTG [place] Level supervised at 12/23/2019 1600 LTG Assistive Device none at 12/23/2019 1600 All Transfers Goal Most Recent Value LTG Status new at 12/23/2019 1600 LTG [place] Level modified independent at 12/23/2019 1600 LTG Assistive Device 2 wheeled walker (FWW) at 12/23/2019 1600 Gait Goal Most Recent Value LTG Status new at 12/23/2019 1600 LTG [place] Level stand by assist at 12/23/2019 1600 [...] Bed Mobility Supine to Sit, Level of [place]: moderate assist (50% patient effort) Safety Issues: decreased use of legs for bridging/pushing Impairments: strength decreased Transfers Sit-Stand, Level of [place]: moderate assist (50% patient effort) Stand-Sit, Level of [place]: moderate assist (50% patient effort) Enp-Jtjcx-Vbx, Assistive Device: other (see comments)(UP walker) Safety Issues: balance decreased during turns, step length decreased Impairments: strength decreased Exercises Bed exercises: ankle pumps, quad sets, heel slides, hip abduction/adduction, glut sets Goals Reflects last filed data and may be from multiple contributors. All Bed Mobility Goal Most Recent Value LTG Status new at 12/23/2019 1600 LTG [place] Level supervised at 12/23/2019 1600 LTG Assistive Device none at 12/23/2019 1600 All Transfers Goal Most Recent Value LTG Status new at 12/23/2019 1600 LTG [place] Level modified independent at 12/23/2019 1600 LTG Assistive Device 2 wheeled walker (FWW) at 12/23/2019 1600 Gait Goal Most Recent Value LTG Status new at 12/23/2019 1600 LTG [place] Level stand by assist at 12/23/2019 1600 [...] handled ghada e horn, long handled sponge, production department supervisor, sock aide Barriers to community-based discharge: Level [...] x1, rest break inbetween set d/t fatigue. BISHOP PAIUTE for proper tech during ex able to continue seq uence intitially however would require cueing/assist later on in reps. Goals Reflects last filed data and may be from multiple contributors. LB Dressing Goal Most Recent Value LTG Status new at 12/24/2019 0953 LTG [place] Level moderate assist (50% patient effort), verbal cues required at 12/23 0953 LTG Adaptive Equipment production department supervisor, shoe horn, long handled, sock-aid [AE as needed] at 2019 0953 Toilet Transfer Goal Most Recent Value LTG Status new at 12/24/2019 0953 LTG [place] Level minimum assist (75% patient effort), verbal [...] OTR/L. lan of Care - Andrez Dominguez, TICKET PULLER - 12/26/2019 1:46 PM PDTFormatting of this [...] Bed Mobility Supine to Sit, Level of [place]: moderate assist (50% patient effort) Sit to Supine, Level of [place]: moderate assist (50% patient effort) Safety Issues: decreased use of legs for bridging/pushing Impairments: strength decreased Transfers Sit-Stand, Level of [place]: moderate assist (50% patient effort) Stand-Sit, Level of [place]: moderate assist (50% patient effort) Koj-Hecgd-Jjs, Assistive Device: other (see comments)(Up walker) Safety Issues: balance decreased during turns, step length decreased Impairments: strength decreased Gait Level of [place]: moderate assist (50% patient effort) Assistive Device: other (see comments)(Up walker) Distance (feet): 2 Gait Deviations: quiat decreased, step length decreased Safety Issues: balance [...] LTG Status new at 12/23/2019 1600 LTG [place] Level supervised at 12/23/2019 1600 LTG Assistive Device none at 12/23/2019 1600 All Transfers Goal Most Recent Value LTG Status new at 12/23/2019 1600 LTG [place] Level modified independent at 12/23/2019 1600 LTG Assistive Device 2 wheeled walker (FWW) at 12/23/2019 1600 Gait Goal Most Recent Value LTG Status new at 12/23/2019 1600 LTG [place] Level stand by assist at 12/23/2019 1600 [...] Bed Mobility Supine to Sit, Level of [place]: moderate assist (50% patient effort) Safety Issues: decreased use of legs for bridging/pushing Impairments: strength decreased Transfers Sit-Stand, Level of [place]: moderate assist (50% patient effort) Stand-Sit, Level of [place]: moderate assist (50% patient effort) Pdh-Hfkvy-Nmz, Assistive Device: other (see comments)(Up walker) Safety Issues: balance decreased during turns, step length decreased Impairments: strength decreased Gait Level of [place]: moderate assist (50% patient effort) Assistive Device: [...] LTG Status new at 12/23/2019 1600 LTG [place] Level supervised at 12/23/2019 1600 LTG Assistive Device none at 12/23/2019 1600 All Transfers Goal Most Recent Value LTG Status new at 12/23/2019 1600 LTG [place] Level modified independent at 12/23/2019 1600 LTG Assistive Device 2 wheeled walker (FWW) at 12/23/2019 1600 Gait Goal Most Recent Value LTG Status new at 12/23/2019 1600 LTG [place] Level stand by assist at 12/23/2019 1600 [...] HIGH Current Discharge Plan Anticipated Discharge Disposition: [facility]cf facility Expected DC Date: 12/30/2019 Barriers to Discharge: placement Steps Taken Toward Discharge: Attended morning rounds Next Steps: d/c to [facility] Swing Bed Community Support Services Current Outpt/Agency/Support Groups: none Community Agency Name: none Other Resources: Discharge Transportation Transportation Needs: agency transportation Notes: Pt not medically ready for discharge. Cm called Idalia NELSON at [facility] and updat ed her on Pt progress. Pt may be ready for d/c Monday. Cm will continue to follow for placem ent needs. Electronically signed: Ja Marcus RN 12/26/2019 11:46 AM lan of Audra Pickard, Nursing [facility] t - 12/26/2019 10:00 AM [...] Bed Mobility Sit to Supine, Level of [place]: maximal assist (25% patient effort), verbal cues requ ired Safety Issues: decreased use of legs for bridging/pushing, decreased use of arms for pushin g/pulling Impairments: strength decreased, pain, impaired balance Transfers Sit-Stand, Level of [place]: moderate assist (50% patient effort), verbal cues require d Stand-Sit, Level of [place]: moderate assist (50% patient effort), verbal cues require d Jzk-Esxmd-Wes, Assistive Device: 2 wheeled walker (FWW), gait belt Safety Issues: sequencing ability decreased, balance decreased during turns Gait Level of [place]: moderate assist (50% patient effort) Assistive Device: [...] LTG Status new at 12/23/2019 1600 LTG [place] Level supervised at 12/23/2019 1600 LTG Assistive Device none at 12/23/2019 1600 All Transfers Goal Most Recent Value LTG Status new at 12/23/2019 1600 LTG [place] Level modified independent at 12/23/2019 1600 LTG Assistive Device 2 wheeled walker (FWW) at 12/23/2019 1600 Gait Goal Most Recent Value LTG Status new at 12/23/2019 1600 LTG [place] Level stand by assist at 12/23/2019 1600 [...] HIGH Current Discharge Plan Anticipated Discharge Disposition: chcf facility Expected DC Date: 12/27/2019 Barriers to Discharge: placement Steps Taken Toward Discharge: Attended rounds Next Steps: d/c to [facility] Community Support Services Current Outpt/Agency/Support Groups: none Community Agency Name: none Other Resources: Discharge Transportation Transportation Needs: agency transportation Notes: Pt not medically ready for discharge. Cm received call from [facility] from [facility] - [...] (Range of Motion), stair training, strengthening, stretching, micronesian ball techniques, w heelchair management/propulsion training Recommended [...] HOB elevated Supine to Sit, Level of [place]: moderate assist (50% patient effort), verbal cues req uired Safety Issues: decreased use of legs for bridging/pushing, decreased use of arms for pushin g/pulling Impairments: strength decreased, pain, impaired balance Transfers Additional Documentation: sit to/from stand Chair-Bed, Level of [place]: moderate assist (50% patient effort), verbal cues require d Aco-Uiaga-Xem, Assistive Device: 2 wheeled walker (FWW) Sit-Stand, Level of [place]: moderate assist (50% patient effort), verbal cues require d Stand-Sit, Level of [place]: moderate assist (50% patient effort), verbal cues require d Zwn-Cvavv-Cjq, Assistive Device: 2 wheeled walker (FWW), gait belt Maintain Weight Bearing Status: able to maintain weight bearing status Safety Issues: sequencing ability decreased, balance decreased during turns Impairments: impaired balance, coordination impaired, pain, decreased flexibility Gait Gait Comments: 4 steps to chair Level of [place]: moderate assist (50% patient effort) Assistive Device: [...] LTG Status new at 12/23/2019 1600 LTG [place] Level supervised at 12/23/2019 1600 LTG Assistive Device none at 12/23/2019 1600 All Transfers Goal Most Recent Value LTG Status new at 12/23/2019 1600 LTG [place] Level modified independent at 12/23/2019 1600 LTG Assistive Device 2 wheeled walker (FWW) at 12/23/2019 1600 Gait Goal Most Recent Value LTG Status new at 12/23/2019 1600 LTG [place] Level stand by assist at 12/23/2019 1600 [...] long handled shoe horn, long handled sponge, production department supervisor, sock aide(BSC (?)) Barriers to community-based discharge [...] seated in the recliner Grooming, Level of [place]: supervised Assistive Device: none Grooming Assess/Train, Position: sitting Bed Mobility Additional Documentation: supine to/from sit Assistive Device: HOB elevated, bed rails Sit to Supine, Level of [place]: maximal assist (25% patient effort), verbal cues [...] stand, bed to/from chair Chair-Bed, Level of [place]: moderate assist (50% patient effort), verbal cues require d Hoc-Zavum-Oqz, Assistive Device: gait belt Sit-Stand, Level of [place]: moderate assist (50% patient effort), verbal cues require d Stand-Sit, Level of [place]: moderate assist (50% patient effort), verbal cues require d Dvf-Zenty-Xgm, Assistive Device: 2 wheeled walker (FWW), gait [...] LTG Status new at 12/24/2019 0953 LTG [place] Level moderate assist (50% patient effort), verbal cues required at 12/23 0953 LTG Adaptive Equipment production department supervisor, shoe horn, long handled, sock-aid [AE as needed] at 2019 0953 Toilet Transfer Goal Most Recent Value LTG Status new at 12/24/2019 0953 LTG [place] Level minimum assist (75% patient effort), verbal [...] HOB elevated Supine to Sit, Level of [place]: moderate assist (50% patient effort), verbal cues req uired Safety Issues: decreased use of arms for pushing/pulling, decreased use of legs for bridgin g/pushing Impairments: decreased flexibility, pain, impaired balance Transfers Additional Documentation: sit to/from stand Sit-Stand, Level of [place]: minimal assist (75% patient effort) Stand-Sit, Level of [place]: minimal assist (75% patient effort) Rla-Wwlkz-Dqc, Assistive Device: 2 wheeled walker (FWW) Maintain Weight Bearing Status: able to maintain weight bearing status Safety Issues: sequencing ability decreased Impairments: decreased flexibility, impaired balance, pain Gait Gait Comments: side stepping to recliner Level of Cam[place]: minimal assist (75% patient effort) Assistive Device: [...] LTG Status new at 12/23/2019 1600 LTG [place] Level supervised at 12/23/2019 1600 LTG Assistive Device none at 12/23/2019 1600 All Transfers Goal Most Recent Value LTG Status new at 12/23/2019 1600 LTG [place] Level modified independent at 12/23/2019 1600 LTG Assistive Device 2 wheeled walker (FWW) at 12/23/2019 1600 Gait Goal Most Recent Value LTG Status new at 12/23/2019 1600 LTG [place] Level stand by assist at 12/23/2019 1600 [...] discharge planning concerns Services Anticipated at Discharge: [facility] facility Equipment Used at Home: cane, straight, single point, 2 wheeled walker (FWW) Equipment Needed after Discharge: walker, standard Durable Medical Equipment Provider: Pharmacy/Medication Needs: other (see comments)([facility] in [place], [place]) Transportation Needs: agency transportation Initial Plan Anticipated Discharge Disposition: chcf facility Expected DC Date: other (see comments)(SNF [...] stated that he would like to go [facility] Swi ng bed if needed before going home. Cm called [facility] and received contact info - Idalia Garduno [phone]. Cm sent referral to [facility]. Pt stated that Deanna (daughter) edgardo harmon [...] (Range of Motion), stair training, strengthening, stretching, micronesian ball techniques, wheelchair management/propulsio n training Recommended [...] HOB elevated Supine to Sit, Level of [place]: moderate assist (50% patient effort) Sit to Supine, Level of [place]: maximal assist (25% patient effort) Safety Issues: decreased use of arms for pushing/pulling, decreased use of legs for bridgin g/pushing Impairments: decreased flexibility, impaired balance, pain Transfers Additional Documentation: sit to/from stand Sit-Stand, Level of [place]: minimal assist (75% patient effort) Stand-Sit, Level of [place]: minimal assist (75% patient effort) Djo-Hewjt-Mnf, Assistive Device: 2 wheeled walker (FWW) Maintain [...] LTG Status new at 12/23/2019 1600 LTG [place] Level supervised at 12/23/2019 1600 LTG Assistive Device none at 12/23/2019 1600 All Transfers Goal Most Recent Value LTG Status new at 12/23/2019 1600 LTG [place] Level modified independent at 12/23/2019 1600 LTG Assistive Device 2 wheeled walker (FWW) at 12/23/2019 1600 Gait Goal Most Recent Value LTG Status new at 12/23/2019 1600 LTG [place] Level stand by assist at 12/23/2019 1600 LTG Assistive Device 2 wheeled walker (FWW) at 12/23/2019 1600 LTG Distance (feet) 50 at 12/23/2019 1600 [facility] - Chasity Alston RN - 12/23/2019 [...] Melquiades Baez DO - 12/22/2019 10:34 AM [facility] [...] by: Melquiades Baez DO, 12/22/2019 10:35 AM [facility] lan of Care - Lise Chambers [...] 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 EKG and Ches [...] shift and every two hours on night cleaner to monitor and medicate appropriately. 2. Staff [...] | | | | | [place] [address] | | | | | | [phone] | | | | | | | | +--------+ + + + + | 03/24/ | Hospital | | Anna Edouard, | Esophagitis | | 2020 | Encounter | | [address] | | | | | | [place] [address] | | | | | | [phone] | | | | | | | | +--------+ + + + + | 03/24/ | Surgery | | Anna Edouard, | EGD | | 2019 | | | MD [address] | | | | | | [place] [address] | | | | | | [phone] | | | | | | | | +--------+ + + + + | 03/31/ | Office | Orthopedic Surgery | Melquiades Baez | | | 2019 | Visit | | DO [address] | | | | | | [place] | | | | | | [place] [address] | | | | | | [phone] | | | | | | | | +--------+ + + + + | 04/21/ | Office | Nephrology | Isiah Jade MD | | | 2019 | Visit | | [address] | | | | | | [address] | | | | | | [address] | | | | | | | | +--------+ + + + + | 05/07/ | Office | Cardiology | Charlee Oswald | | | 2019 | Visit | | [address] | | | | | | [address] | | | | | | [place] [address] | | | | | | [phone] | | | | | | | [...] + +--------+ + + + | *TERMED* MO UPPER GI | Routin | 12/29/2019 | [...] | | | Dr | | | Tupman | +---+--------+ + +--------+ +---+ + | [...] | | | POC | performed at [facility];[address] | | LABORATORY | | | | [address];[place], [place] | | | | | | [address] | | | | + + + + + + + + | Specimen | + + | | + + + + + + + | Performing | Address | City/State/Zipcode | Phone Number | | Organization | | | | + + + + + | [facility] | [address] | [place] [address] | [phone] | + + + + + POC Glucose (01/01/2020 6:29 AM PDT) + + + + + + | Component | Value | Ref Range | Performed | Pathologist | | | | | At | Signature | + + + + + + | Glucose, | 143 (H)Comment: Testing | 65 - 99 mg/dL | [facility] | | | POC | performed at [facility];[address] | | LABORATORY | | | | [address];[place] | | | | | | [address] | | | | + + + + + + + + | Specimen | + + | | + + + + + + + | Performing | Address | City/State/Zipcode | Phone Number | | Organization | | | | + + + + + | [facility] | [address] | [place] [address] | [phone] | + + + + + Basic [...] | 8.6 | 8.5 - 10.5 | [facility] | | | | | mg/dL | LABORATORY | | + + + + + + | Estimated | 23 (L)Comment: GFR <60: | >60 | [facility] | | | GFR | [...] | | | | | performed at [facility];[address] | | | | | | [facility];[place], [place] | | | | | | [address] | | | | + + + + + + + + | Specimen | + + | Blood | + + + + + + + | Performing | Address | City/State/Zipcode | Phone Number | | Organization | | | | + + + + + | [facility] | [address] | [place] [address] | [phone] | + + + + + CBC [...] 0.02Comment: Testing | 0.00 - 0.10 | [facility] | | | Absolute | performed at [facility];[address] | K/uL | LABORATORY | | | | [address];[place] | | | | | | [address] | | | | + + + + + + + + | Specimen | + + | Blood | + + + + + + + | Performing | Address | City/State/Zipcode | Phone Number | | Organization | | | | + + + + + | [facility] | [address] | [place] [address] | [phone] | + + + + + POC [...] | | | POC | performed at [facility];[address] | | LABORATORY | | | | [address];[place], [place] | | | | | | [address] | | | | + + + + + + + + | Specimen | + + | | + + + + + + + | Performing | Address | City/State/Zipcode | Phone Number | | Organization | | | | + + + + + | [facility] | [address] | [place] [address] | [phone] | + + + + + POC [...] | | | POC | performed at [facility];[address] | | LABORATORY | | | | [address];[place], [place] | | | | | | [address] | | | | + + + + + + + + | Specimen | + + | | + + + + + + + | Performing | Address | City/State/Zipcode | Phone Number | | Organization | | | | + + + + + | [facility] | [address] [facility] | [place] [address] | [phone] | + + + + + POC [...] | | | POC | performed at [facility];[address] | | LABORATORY | | | | [address];[place], [place] | | | | | | [address] | | | | + + + + + + + + | Specimen | + + | | + + + + + + + | Performing | Address | City/State/Zipcode | Phone Number | | Organization | | | | + + + + + | [facility] | [address] | [place] [address] | [phone] | + + + + + POC Glucose (12/31/2019 6:36 AM PDT) + + + + + + | Component | Value | Ref Range | Performed | Pathologist | | | | | At | Signature | + + + + + + | Glucose, | 154 (H)Comment: Testing | 65 - 99 mg/dL | [facility] | | | POC | performed at [facility];[address] | | LABORATORY | | | | [address];[place] | | | | | | [address] | | | | + + + + + + + + | Specimen | + + | | + + + + + + + | Performing | Address | City/State/Zipcode | Phone Number | | Organization | | | | + + + + + | [facility] | [address] | [place] [address] | [phone] | + + + + + Basic [...] | | | | | | MDRD IDWI traceable | | | | | | equation.Testing | | | | | | performed at [facility], [address] | | | | | | [facility], | | | | | | [place] [address] | | | | + + + + + + + + | Specimen | + + | Blood | + + + + + + + | Performing | Address | City/State/Zipcode | Phone Number | | Organization | | | | + + + + + | [facility] | [address] | [place] [address] | [phone] | + + + + + CBC [...] 0.02Comment: Testing | 0.00 - 0.10 | [facility] | | | Absolute | performed at [facility], [address] | K/uL | LABORATORY | | | | [address], | | | | | | [place] [address] | | | | + + + + + + + + | Specimen | + + | Blood | + + + + + + + | Performing | Address | City/State/Zipcode | Phone Number | | Organization | | | | + + + + + | [facility] | [address] | [place] [address] | [phone] | + + + + + POC [...] | | | POC | performed at [facility];[address] | | LABORATORY | | | | [address];[place] | | | | | | [address] | | | | + + + + + + + + | Specimen | + + | | + + + + + + + | Performing | Address | City/State/Zipcode | Phone Number | | Organization | | | | + + + + + | [facility] | [address] | [place] [address] | [phone] | + + + + + POC [...] | | | POC | performed at [facility];[address] | | LABORATORY | | | | [address];[place], [place] | | | | | | [address] | | | | + + + + + + + + | Specimen | + + | | + + + + + + + | Performing | Address | City/State/Zipcode | Phone Number | | Organization | | | | + + + + + | [facility] | [address] | [place] [address] | [phone] | + + + + + POC [...] | | | POC | performed at [facility];[address] | | LABORATORY | | | | [address];[place] | | | | | | [address] | | | | + + + + + + + + | Specimen | + + | | + + + + + + + | Performing | Address | City/State/Zipcode | Phone Number | | Organization | | | | + + + + + | [facility] | [address] | [place] [address] | [phone] | + + + + + Basic [...] | | | | | | MDRD [facility] traceable | | | | | | equation.Testing | | | | | | performed at [facility];[address] | | | | | | [facility];[place], [place] | | | | | | [address] | | | | + + + + + + + + | Specimen | + + | Blood | + + + + + + + | Performing | Address | City/State/Zipcode | Phone Number | | Organization | | | | + + + + + | [facility] | [address] [facility] | [place] [address] | [phone] | + + + + + POC [...] | | | POC | performed at [facility];[address] | | LABORATORY | | | | [address];[place], [place] | | | | | | [address] | | | | + + + + + + + + | Specimen | + + | | + + + + + + + | Performing | Address | City/State/Zipcode | Phone Number | | Organization | | | | + + + + + | [facility] | [address] | [place] [address] | [phone] | + + + + + CBC [...] 0.03Comment: Testing | 0.00 - 0.10 | [facility] | | | Absolute | performed at [facility];[address] | K/uL | LABORATORY | | | | [address];[place] | | | | | | [address] | | | | + + + + + + + + | Specimen | + + | Blood | + + + + + + + | Performing | Address | City/State/Zipcode | Phone Number | | Organization | | | | + + + + + | [facility] | [address] | [place] [address] | [phone] | + + + + + POC [...] | | | POC | performed at [facility];[address] | | LABORATORY | | | | [address];[place], [place] | | | | | | [address] | | | | + + + + + + + + | Specimen | + + | | + + + + + + + | Performing | Address | City/State/Zipcode | Phone Number | | Organization | | | | + + + + + | [facility] | [address] | [place] [address] | [phone] | + + + + + Hemoglobin [...] CORDELL | | | | performed at [facility];[address] | | LABORATORY | | | | [address];[place], [place] | | | | | | [address] | | | | + + + + + + + + | Specimen | + + | Blood | + + + + + + + | Performing | Address | City/State/Zipcode | Phone Number | | Organization | | | | + + + + + | [facility] | [address] | [place] [address] | [phone] | + + + + + POC [...] | | | POC | performed at [facility];[address] | | LABORATORY | | | | [address];[place], [place] | | | | | | [address] | | | | + + + + + + + + | Specimen | + + | | + + + + + + + | Performing | Address | City/State/Zipcode | Phone Number | | Organization | | | | + + + + + | [facility] | [address] | [place] [address] | [phone] | + + + + + Hemoglobin [...] ALEX | | | | performed at [facility];[address] | | LABORATORY | | | | [address];[place], [place] | | | | | | [address] | | | | + + + + + + + + | Specimen | + + | Blood | + + + + + + + | Performing | Address | City/State/Zipcode | Phone Number | | Organization | | | | + + + + + | [facility] | [address] | [place] [address] | [phone] | + + + + + POC [...] | | | POC | performed at [facility];[address] | | LABORATORY | | | | [address];[place], [place] | | | | | | [address] | | | | + + + + + + + + | Specimen | + + | | + + + + + + + | Performing | Address | City/State/Zipcode | Phone Number | | Organization | | | | + + + + + | [facility] | [address] | [place] [address] | [phone] | + + + + + POC Glucose (12/29/2019 11:06 AM PDT) + + + + + + | Component | Value | Ref Range | Performed | Pathologist | | | | | At | Signature | + + + + + + | Glucose, | 205 (H)Comment: Testing | 65 - 99 mg/dL | [facility] | | | POC | performed at [facility];[address] | | LABORATORY | | | | [address];[place], [place] | | | | | | [address] | | | | + + + + + + + + | Specimen | + + | | + + + + + + + | Performing | Address | City/State/Zipcode | Phone Number | | Organization | | | | + + + + + | [facility] | [address] | [place] [address] | [phone] | + + + + + Surgical [...] in cassette (A1). B. The specimen, labeled "nAdres Guzmán, | | | esophagus biopsy," is [...] | | technical component was performed by [facility], [address] [place] [address] | | | [place] [address] ([employer]/Designer: Padmini Sellers MD; CLIA# | | | [id number]). Professional interpretation was performed [facility] | | | [employer], [address], | | | [place] [address] ([employer] Laborer/Designer: Oscar Maynard M.D.; CLIA#: | | | [id number]). Diagnostician: Padmini Sellers | | | MDPathologistElectronically [...] | |The technical component was performed by [facility], [address] [place] [address] ([employer] Laborer/Designer: Padmini Sellers MD; CLIA# [id number]). Professional interpretation was performed by | | |[facility], [address] [address] ([employer] Laborer/Designer: Oscar Maynard M.D.; CLIA#: [id number]). | | | | | |Diagnostician: Padmini [...] Performed At | + + + | [facility] | [facility] | | [facility] | PROVATION | | CenterGastroenterology | | | Patient Name: Andres Guzmán | | | Procedure Date: 12/29/2019 8:36 AMMRN: [id number] | | | of : 1930 | [...] the anesthesiologist and the | | | audio technician in the pre-procedure area in the [...] | | | with Gold probe 7 Chilean x 5 pulses was successful with | [...] | | AMNumber of Addenda: 0 [facility] | | | - Check hemoglobin q 6 hours for one day. | | | | | | | | |LAMONT HERNANDEZ MD | | |12/29/2019 10:19:54 AM | | |This report has been signed electronically. | | | | | |Note Initiated On: 12/29/2019 8:36 AM | | |Number of Addenda: 0 | | | | | | [facility] | | + + + + +---------+ [...] [facility] | | | | performed at [facility];[address] | | LABORATORY | | | | [address];[place] | | | | | | [address] | | | | + + + + + + + + | Specimen | + + | Blood | + + + + + + + | Performing | Address | City/State/Zipcode | Phone Number | | Organization | | | | + + + + + | [facility] | [address] | [place] [address] | [phone] | + + + + + POC Glucose (12/29/2019 6:06 AM PDT) + + + + + + | Component | Value | Ref Range | Performed | Pathologist | | | | | At | Signature | + + + + + + | Glucose, | 146 (H)Comment: Testing | 65 - 99 mg/dL | [facility] | | | POC | performed at [facility];[address] | | LABORATORY | | | | [address];[place], [place] | | | | | | [address] | | | | + + + + + + + + | Specimen | + + | | + + + + + + + | Performing | Address | City/State/Zipcode | Phone Number | | Organization | | | | + + + + + | [facility] | [address] | [place] [address] | [phone] | + + + + + CBC [...] | | | Absolute | performed at [facility];[address] | K/uL | LABORATORY | | | | [address];[place] | | | | | | [address] | | | | + + + + + + + + | Specimen | + + | Blood | + + + + + + + | Performing | Address | City/State/Zipcode | Phone Number | | Organization | | | | + + + + + | [facility] | [address] | [place] [address] | [phone] | + + + + + Shine [...] | | | | | performed at [facility];[address] | | | | | | [address];[place] | | | | | | [address] | | | | + + + + + + + + | Specimen | + + | Blood | + + + + + + + | Performing | Address | City/State/Zipcode | Phone Number | | Organization | | | | + + + + + | [facility] | [address] | [place] [address] | [phone] | + + + + + Basic [...] | | | | | | [facility] traceable | | | | | | equation.Testing | | | | | | performed at [facility];[address] | | | | | | [facility];[place], [place] | | | | | | [address] | | | | + + + + + + + + | Specimen | + + | Blood | + + + + + + + | Performing | Address | City/State/Zipcode | Phone Number | | Organization | | | | + + + + + | [facility] | [address] [facility] | [place] [address] | [phone] | + + + + + POC [...] | | | POC | performed at [facility];[address] | | LABORATORY | | | | [address];[place], [place] | | | | | | [address] | | | | + + + + + + + + | Specimen | + + | | + + + + + + + | Performing | Address | City/State/Zipcode | Phone Number | | Organization | | | | + + + + + | [facility] | [address] | [place] [address] | [phone] | + + + + + Hemoglobin and Hematocrit (12/28/2019 10:33 PM PDT) + + + + + + | Component | Value | Ref Range | Performed | Pathologist | | | | | At | Signature | + + + + + + | Hemoglobin | 9.1 (L) | 13.2 - 17.0 | [facility] | | | | | g/dL | LABORATORY | | + + + + + + | Hematocrit | 26.6 (L)Comment: Testing | 39.0 - 50.0 % | [facility] | | | | performed at [facility];[address] | | LABORATORY | | | | [address];[place] | | | | | | [address] | | | | + + + + + + + + | Specimen | + + | Blood | + + + + + + + | Performing | Address | City/State/Zipcode | Phone Number | | Organization | | | | + + + + + | [facility] | [address] | [place] [address] | [phone] | + + + + + POC [...] | | | POC | performed at [facility];[address] | | LABORATORY | | | | [address];[place], [place] | | | | | | [address] | | | | + + + + + + + + | Specimen | + + | | + + + + + + + | Performing | Address | City/State/Zipcode | Phone Number | | Organization | | | | + + + + + | [facility] | [address] | [place] [address] | [phone] | + + + + + Fecal [...] | | LABORATORY | | | | [facility];[address];[place] [address] | | | | + + + + + + + + | Specimen | + + | Stool - Stool | | specimen (specimen) | + + + + + + + | Performing | Address | City/State/Zipcode | Phone Number | | Organization | | | | + + + + + | [facility] | [address] | [place] [address] | [phone] | + + + + + POC Glucose (12/28/2019 4:32 PM PDT) + + + + + + | Component | Value | Ref Range | Performed | Pathologist | | | | | At | Signature | + + + + + + | Glucose, | 124 (H)Comment: Testing | 65 - 99 mg/dL | [facility] | | | POC | performed at [facility];[address] | | LABORATORY | | | | [address];[place] | | | | | | [address] | | | | + + + + + + + + | Specimen | + + | | + + + + + + + | Performing | Address | City/State/Zipcode | Phone Number | | Organization | | | | + + + + + | [facility] | [address] | [place] [address] | [phone] | + + + + + Hemoglobin [...] [facility] | | | | performed at [facility];[address] | | LABORATORY | | | | [address] [facility];[place] | | | | | | [address] | | | | + + + + + + + + | Specimen | + + | Blood | + + + + + + + | Performing | Address | City/State/Zipcode | Phone Number | | Organization | | | | + + + + + | [facility] | [address] | [place] [address] | [phone] | + + + + + POC Glucose (12/28/2019 11:59 AM PDT) + + + + + + | Component | Value | Ref Range | Performed | Pathologist | | | | | At | Signature | + + + + + + | Glucose, | 163 (H)Comment: Testing | 65 - 99 mg/dL | [facility] | | | POC | performed at [facility];[address] | | LABORATORY | | | | [address];[place] | | | | | | [address] | | | | + + + + + + + + | Specimen | + + | | + + + + + + + | Performing | Address | City/State/Zipcode | Phone Number | | Organization | | | | + + + + + | [facility] | [address] | [place] [address] | [phone] | + + + + + POC [...] | | | POC | performed at [facility];[address] | | LABORATORY | | | | [address];[place], [place] | | | | | | [address] | | | | + + + + + + + + | Specimen | + + | | + + + + + + + | Performing | Address | City/State/Zipcode | Phone Number | | Organization | | | | + + + + + | [facility] | [address] | [place] [address] | [phone] | + + + + + CBC [...] | | | Absolute | performed at [facility], [address] | K/uL | LABORATORY | | | | [address], | | | | | | [place] [address] | | | | + + + + + + + + | Specimen | + + | Blood | + + + + + + + | Performing | Address | City/State/Zipcode | Phone Number | | Organization | | | | + + + + + | [facility] | [address] | [place] [address] | [phone] | + + + + + Basic [...] | | | | | performed at [facility], [address] | | | | | | [facility], | | | | | | [place] [address] | | | | + + + + + + + + | Specimen | + + | Blood | + + + + + + + | Performing | Address | City/State/Zipcode | Phone Number | | Organization | | | | + + + + + | [facility] | [address] | [place] [address] | [phone] | + + + + + POC [...] | | | POC | performed at [facility];[address] | | LABORATORY | | | | [address];[place], [place] | | | | | | [address] | | | | + + + + + + + + | Specimen | + + | | + + + + + + + | Performing | Address | City/State/Zipcode | Phone Number | | Organization | | | | + + + + + | [facility] | [address] | [place] [address] | [phone] | + + + + + POC Glucose (12/27/2019 3:30 PM PDT) + + + + + + | Component | Value | Ref Range | Performed | Pathologist | | | | | At | Signature | + + + + + + | Glucose, | 156 (H)Comment: Testing | 65 - 99 mg/dL | [facility] | | | POC | performed at [facility];[address] | | LABORATORY | | | | [address];[place] | | | | | | [address] | | | | + + + + + + + + | Specimen | + + | | + + + + + + + | Performing | Address | City/State/Zipcode | Phone Number | | Organization | | | | + + + + + | [facility] | [address] | [place] [address] | [phone] | + + + + + Red [...] | | LABORATORY | | | | Blvd;[place] [address] | | | | + + + + + + + + | Specimen | + + | | + + + + + + + | Performing | Address | City/State/Zipcode | Phone Number | | Organization | | | | + + + + + | [facility] | [address] | [place] [address] | [phone] | + + + + + Type [...] + + + | BB BAND | [id number] | | [facility] | | | | | | LABORATORY | | + + + + + + | UNIT # | [id number] | | [facility] | | | | [...] + + + | UNIT # | [id number] | | [facility] | | | | [...] | | | RESULT | performed at [facility];[address] | | LABORATORY | | | | [address];[place], [place] | | | | | | [address] | | | | + + + + + + + + | Specimen | + + | Blood | + + + + + + + | Performing | Address | City/State/Zipcode | Phone Number | | Organization | | | | + + + + + | [facility] | [address] | [place] [address] | [phone] | + + + + + POC [...] | | | POC | performed at [facility];[address] | | LABORATORY | | | | [address];[place] | | | | | | [address] | | | | + + + + + + + + | Specimen | + + | | + + + + + + + | Performing | Address | City/State/Zipcode | Phone Number | | Organization | | | | + + + + + | [facility] | [address] | [place] [address] | [phone] | + + + + + CBC [...] 0.02Comment: Testing | 0.00 - 0.10 | [facility] | | | Absolute | performed at [facility], [address] | K/uL | LABORATORY | | | | [address], | | | | | | [place] [address] | | | | + + + + + + + + | Specimen | + + | | + + + + + + + | Performing | Address | City/State/Zipcode | Phone Number | | Organization | | | | + + + + + | [facility] | [address] | [place] [address] | [phone] | + + + + + Procalcitonin [...] | | | | | | at [facility];[address] [place] [address] | | | | | | [facility];[place] [address] | | | | + + + + + + + + | Specimen | + + | Blood | + + + + + + + | Performing | Address | City/State/Zipcode | Phone Number | | Organization | | | | + + + + + | [facility] | [address] | [place] [address] | [phone] | + + + + + Basic [...] | | | | | performed at [facility], [address] | | | | | | [facility], | | | | | | [place] [address] | | | | + + + + + + + + | Specimen | + + | Blood | + + + + + + + | Performing | Address | City/State/Zipcode | Phone Number | | Organization | | | | + + + + + | [facility] | [address] | [place] [address] | [phone] | + + + + + Vitamin [...] | | | | defined by the [facility] | | | | | | [facility] and an | | | [...] [facility] | | | | | | ([facility]). | | | | | [...] | | | | | performed at [facility], | | | | | | [address], | | | | | | [facility] [address] | | | | + + + + + + + + | Specimen | + + | Blood | + + + + + + + | Performing | Address | City/State/Zipcode | Phone Number | | Organization | | | | + + + + + | [facility] | [address] | [place] [address] | [phone] | + + + + + Potassium (12/27/2019 12:08 AM PDT) + + + + + + | Component | Value | Ref Range | Performed | Pathologist | | | | | At | Signature | + + + + + + | K | 4.0Comment: Testing | 3.5 - 4.9 | [facility] | | | | performed at [facility];[address] | mmol/L | LABORATORY | | | | [address];[place] | | | | | | [address] | | | | + + + + + + + + | Specimen | + + | Blood | + + + + + + + | Performing | Address | City/State/Zipcode | Phone Number | | Organization | | | | + + + + + | [facility] | [address] | [place] [address] | [phone] | + + + + + Magnesium (12/27/2019 12:08 AM PDT) + + + + + + | Component | Value | Ref Range | Performed | Pathologist | | | | | At | Signature | + + + + + + | Magnesium | 2.2Comment: Testing | 1.7 - 2.4 mg/dL | [facility] | | | | performed at [facility];[address] | | LABORATORY | | | | [address];[place] | | | | | | [address] | | | | + + + + + + + + | Specimen | + + | Blood | + + + + + + + | Performing | Address | City/State/Zipcode | Phone Number | | Organization | | | | + + + + + | [facility] | [address] | [place] [address] | [phone] | + + + + + ECG [...] | | | POC | performed at [facility];[address] | | LABORATORY | | | | [address];[place] | | | | | | [address] | | | | + + + + + + + + | Specimen | + + | | + + + + + + + | Performing | Address | City/State/Zipcode | Phone Number | | Organization | | | | + + + + + | [facility] | [address] | [place] [address] | [phone] | + + + + + POC [...] | | | POC | performed at [facility];[address] | | LABORATORY | | | | [address];[place], [place] | | | | | | [address] | | | | + + + + + + + + | Specimen | + + | | + + + + + + + | Performing | Address | City/State/Zipcode | Phone Number | | Organization | | | | + + + + + | [facility] | [address] | [place] [address] | [phone] | + + + + + Complement [...] | | | COMPLEMENT | performed at [facility], | | LABORATORY | | | | [address], | | | | | | [place] [address] | | | | + + + + + + + + | Specimen | + + | | + + + + + + + | Performing | Address | City/State/Zipcode | Phone Number | | Organization | | | | + + + + + | [facility] | [address] | [place] [address] | [phone] | + + + + + Complement C3 Ag (12/26/2019 12:33 PM PDT) + + + + + + | Component | Value | Ref Range | Performed | Pathologist | | | | | At | Signature | + + + + + + | C3 | 53 (L)Comment: Testing | 82 - 167 mg/dL | [facility] | | | COMPLEMENT | performed at [facility], | | LABORATORY | | | | [address], | | | | | | [facility] [address] | | | | + + + + + + + + | Specimen | + + | | + + + + + + + | Performing | Address | City/State/Zipcode | Phone Number | | Organization | | | | + + + + + | [facility] | [address] | [place] [address] | [phone] | + + + + + POC [...] | | | POC | performed at [facility];[address] | | LABORATORY | | | | [address];[place] | | | | | | [address] | | | | + + + + + + + + | Specimen | + + | | + + + + + + + | Performing | Address | City/State/Zipcode | Phone Number | | Organization | | | | + + + + + | [facility] | [address] | [place] [address] | [phone] | + + + + + POC [...] | | | POC | performed at [facility];[address] | | LABORATORY | | | | [address];[place], [place] | | | | | | [address] | | | | + + + + + + + + | Specimen | + + | | + + + + + + + | Performing | Address | City/State/Zipcode | Phone Number | | Organization | | | | + + + + + | [facility] | [address] | [place] [address] | [phone] | + + + + + Parathyroid Hormone, Intraoperative (12/26/2019 4:25 AM PDT) + + + + + + | Component | Value | Ref Range | Performed | Pathologist | | | | | At | Signature | + + + + + + | PTH Intact | 167.0 (H)Comment: | 8.7 - 79.6 | [facility] | | | | Testing performed at | pg/mL | LABORATORY | | | | [facility];[address] | | [address];[place] [address] | | | | + + + + + + + + | Specimen | + + | | + + + + + + + | Performing | Address | City/State/Zipcode | Phone Number | | Organization | | | | + + + + + | [facility] | [address] | [place] [address] | [phone] | + + + + + Renal [...] 13 (L)Comment: GFR <60: | >60 | [facility] | | | GFR | [...] | | | | | performed at [facility], [address] | | | | | | [facility], | | | | | | [place] [address] | | | | + + + + + + + + | Specimen | + + | Blood | + + + + + + + | Performing | Address | City/State/Zipcode | Phone Number | | Organization | | | | + + + + + | [facility] | [address] | [place] [address] | [phone] | + + + + + POC Glucose (12/25/2019 8:53 PM PDT) + + + + + + | Component | Value | Ref Range | Performed | Pathologist | | | | | At | Signature | + + + + + + | Glucose, | 169 (H)Comment: Testing | 65 - 99 mg/dL | [facility] | | | POC | performed at [facility];[address] | | LABORATORY | | | | [address];[place] | | | | | | [address] | | | | + + + + + + + + | Specimen | + + | | + + + + + + + | Performing | Address | City/State/Zipcode | Phone Number | | Organization | | | | + + + + + | [facility] | [address] | [place] [address] | [phone] | + + + + + POC [...] | | | POC | performed at [facility];[address] | | LABORATORY | | | | [address];[place] | | | | | | [address] | | | | + + + + + + + + | Specimen | + + | | + + + + + + + | Performing | Address | City/State/Zipcode | Phone Number | | Organization | | | | + + + + + | [facility] | [address] | [place] [address] | [phone] | + + + + + ECHO [...] | | | POC | performed at [facility];[address] | | LABORATORY | | | | [address];[place], [place] | | | | | | [address] | | | | + + + + + + + + | Specimen | + + | | + + + + + + + | Performing | Address | City/State/Zipcode | Phone Number | | Organization | | | | + + + + + | [facility] | [address] | [place] [address] | [phone] | + + + + + POC Glucose (12/25/2019 7:56 AM PDT) + + + + + + | Component | Value | Ref Range | Performed | Pathologist | | | | | At | Signature | + + + + + + | Glucose, | 136 (H)Comment: Testing | 65 - 99 mg/dL | [facility] | | | POC | performed at [facility];[address] | | LABORATORY | | | | [address];[place] | | | | | | [address] | | | | + + + + + + + + | Specimen | + + | | + + + + + + + | Performing | Address | City/State/Zipcode | Phone Number | | Organization | | | | + + + + + | [facility] | [address] | [place] [address] | [phone] | + + + + + CK Total (12/25/2019 4:25 AM PDT) + + + + + + | Component | Value | Ref Range | Performed | Pathologist | | | | | At | Signature | + + + + + + | CK TOTAL | 104Comment: Testing | 55 - 400 U/L | [facility] | | | | performed at [facility];[address] | | LABORATORY | | | | [address];[place] | | | | | | [address] | | | | + + + + + + + + | Specimen | + + | Blood | + + + + + + + | Performing | Address | City/State/Zipcode | Phone Number | | Organization | | | | + + + + + | [facility] | [address] | [place] [address] | [phone] | + + + + + Renal [...] 13 (L)Comment: GFR <60: | >60 | [facility] | | | GFR | [...] | | | | | | [facility] traceable | | | | | | equation.Testing | | | | | | performed at [facility], [address] | | | | | | [facility], | | | | | | [place] [address] | | | | + + + + + + + + | Specimen | + + | Blood | + + + + + + + | Performing | Address | City/State/Zipcode | Phone Number | | Organization | | | | + + + + + | [facility] | [address] | [place] [address] | [phone] | + + + + + Cytoplasmic [...] | | | | | with both MO-3 and | | | | | | [...] | | | | | | [address] [facility], | | | | | | [facility] [address] | | | | + + + + + + + + | Specimen | + + | Blood | + + + + + + + | Performing | Address | City/State/Zipcode | Phone Number | | Organization | | | | + + + + + | [facility] | [address] | [place] [address] | [phone] | + + + + + Sedimentation Rate (12/25/2019 4:22 AM PDT) + + + + + + | Component | Value | Ref Range | Performed | Pathologist | | | | | At | Signature | + + + + + + | ESR | 6Comment: Testing | 0 - 20 mm/Hr | [facility] | | | | performed at [facility], [address] | | LABORATORY | | | | [address], | | | | | | [place] [address] | | | | + + + + + + + + | Specimen | + + | Blood | + + + + + + + | Performing | Address | City/State/Zipcode | Phone Number | | Organization | | | | + + + + + | [facility] | [address] | [place] [address] | [phone] | + + + + + Immunoglobulin, Free Light Chain (12/25/2019 4:22 AM PDT) + + + + + + | Component | Value | Ref Range | Performed | Pathologist | | | | | At | Signature | + + + + + + | [place] [facility] | 121.2 (H) | 3.3 - [...] + + + + + + | [place] | 1.25Comment: Testing | 0.26 - 1.65 | [facility] | | | a Free | performed at [facility] | | LABORATORY | | | Light Chain | [place], [address] | | | | | Ratio | [place] [address] | | | | + + + + + + + + | Specimen | + + | Blood | + + + + + + + | Performing | Address | City/State/Zipcode | Phone Number | | Organization | | | | + + + + + | [facility] | [address] | [place] [address] | [phone] | + + + + + Glomerular [...] | | | | | | [facility], [address] [place] [address] | | | | | | [place] | | | | | | [address] | | | | + + + + + + + + | Specimen | + + | Blood | + + + + + + + | Performing | Address | City/State/Zipcode | Phone Number | | Organization | | | | + + + + + | [facility] | [address] | [place] [address] | [phone] | + + + + + Hepatitis [...] | | 0.9The [facility] recommends | | | | | | that a positive HCV | | | | | | antibody resultbe | | | | | | followed up with a HCV | | | | | | Nucleic Acid | | | | | | Amplificationtest | | | | | | ([id number]).Testing | | | | | | performed at [facility], | | | | | | [address], | | | | | | [facility] [address] | | | | + + + + + + + + | Specimen | + + | Blood | + + + + + + + | Performing | Address | City/State/Zipcode | Phone Number | | Organization | | | | + + + + + | [facility] | [address] | [place] [address] | [phone] | + + + + + CK Total (12/25/2019 4:22 AM PDT) + + + + + + | Component | Value | Ref Range | Performed | Pathologist | | | | | At | Signature | + + + + + + | CK TOTAL | 100Comment: Testing | 55 - 400 U/L | [facility] | | | | performed at [facility] | | LABORATORY | | | | [address];[place] | | | | | | [address] | | | | + + + + + + + + | Specimen | + + | Blood | + + + + + + + | Performing | Address | City/State/Zipcode | Phone Number | | Organization | | | | + + + + + | [facility] | [address] | [place] [address] | [phone] | + + + + + Lactate Dehydrogenase (12/25/2019 4:22 AM PDT) + + + + + + | Component | Value | Ref Range | Performed | Pathologist | | | | | At | Signature | + + + + + + | LDH TOTAL | 154Comment: Testing | 120 - 246 U/L | [facility] | | | | performed at [facility];[address] | | LABORATORY | | | | [address];[place] | | | | | | [address] | | | | + + + + + + + + | Specimen | + + | Blood | + + + + + + + | Performing | Address | City/State/Zipcode | Phone Number | | Organization | | | | + + + + + | [facility] | [address] | [place] [address] | [phone] | + + + + + Magnesium (12/25/2019 4:22 AM PDT) + + + + + + | Component | Value | Ref Range | Performed | Pathologist | | | | | At | Signature | + + + + + + | Magnesium | 2.5 (H)Comment: Testing | 1.7 - 2.4 mg/dL | [facility] | | | | performed at [facility], [address] | | LABORATORY | | | | [address], | | | | | | [place] [address] | | | | + + + + + + + + | Specimen | + + | Blood | + + + + + + + | Performing | Address | City/State/Zipcode | Phone Number | | Organization | | | | + + + + + | [facility] | [address] | [place] [address] | [phone] | + + + + + Protein, [...] LABORATORY | | | | performed at [facility], [address] | | | | | | [address], | | | | | | [place] [address] | | | | + + + + + + + + | Specimen | + + | | + + + + + + + | Performing | Address | City/State/Zipcode | Phone Number | | Organization | | | | + + + + + | [facility] | [address] | [place] [address] | [phone] | + + + + + Creatinine, Urine, Random (12/25/2019 12:01 AM PDT) + + + + + + | Component | Value | Ref Range | Performed | Pathologist | | | | | At | Signature | + + + + + + | Creatinine, | 139.0Comment: NO NORMAL | mg/dL | [facility] | | | random | RANGE ESTABLISHEDTesting | | LABORATORY | | | urine | performed at [facility], [address] | | | | | | [address] [facility], | | | | | | [place] [address] | | | | + + + + + + + + | Specimen | + + | | + + + + + + + | Performing | Address | City/State/Zipcode | Phone Number | | Organization | | | | + + + + + | [facility] | [address] | [place] [address] | [phone] | + + + + + Protein/Creatinine Ratio, Urine (12/25/2019 12:01 AM PDT) + + + + + + | Component | Value | Ref Range | Performed | Pathologist | | | | | At | Signature | + + + + + + | PRO/CREA | 0.942Comment: Testing | | [facility] | | | RATIO,URINE | performed at [facility], [address] | | LABORATORY | | | | [address], | | | | | | [place] [address] | | | | + + + + + + + + | Specimen | + + | Urine | + + + + + + + | Performing | Address | City/State/Zipcode | Phone Number | | Organization | | | | + + + + + | [facility] | [address] | [place] [address] | [phone] | + + + + + POC [...] | | | POC | performed at [facility];[address] | | LABORATORY | | | | [address];[place], [place] | | | | | | [address] | | | | + + + + + + + + | Specimen | + + | | + + + + + + + | Performing | Address | City/State/Zipcode | Phone Number | | Organization | | | | + + + + + | [facility] | [address] | [place] [address] | [phone] | + + + + + POC [...] | | | POC | performed at [facility];[address] | | LABORATORY | | | | [address];[place] | | | | | | [address] | | | | + + + + + + + + | Specimen | + + | | + + + + + + + | Performing | Address | City/State/Zipcode | Phone Number | | Organization | | | | + + + + + | [facility] | [address] | [place] [address] | [phone] | + + + + + ECG [...] | | | Arterial, | performed at [facility];[address] | | LABORATORY | | | POC | [address];[place], [place] | | | | | | [address] | | | | + + + + + + + + | Specimen | + + | | + + + + + + + | Performing | Address | City/State/Zipcode | Phone Number | | Organization | | | | + + + + + | [facility] | [address] [facility] | [place] [address] | [phone] | + + + + + Coronavirus (COVID-19) NAAT (12/24/2019 1:10 PM PDT) + + + + + + | Component | Value | Ref Range | Performed | Pathologist | | | | | At | Signature | + + + + + + | SARS-CoV-2, | NEGATIVEComment: Testing | NEG | [facility] | | | NAAT | performed at [facility];[address] | | LABORATORY | | | (COVID-19) | [address];[place], [place] | | | | | | [address] | | | | + + + + + + + + | Specimen | + + | Tissue - Entire | | nasopharynx (body | | structure) | + + + + + + + | Performing | Address | City/State/Zipcode | Phone Number | | Organization | | | | + + + + + | [facility] | [address] | [place] [address] | [phone] | + + + + + Culture, [...] | | LABORATORY | | | | Blvd;[place] [address] | | | | + + + + + + | RESULT | NO GROWTH 6 DAYS | | [facility] | | | | | | LABORATORY | | + + + + + + | RESULT | Testing performed at | | [facility] | | | | [facility], [address] | | LABORATORY | | | | [address], [place], [place] | | | | | | [address]Vhoqcva: Testing | | | | | | performed at [facility], [address] | | | | | | [facility], [place], [place] | | | | | | [address] | | | | + + + + + + + + | Specimen | + + | Blood - Peripheral | | blood specimen | | (specimen) | + + + + + + + | Performing | Address | City/State/Zipcode | Phone Number | | Organization | | | | + + + + + | [facility] | [address] [facility] | [place] [address] | [phone] | + + + + + Culture, [...] | [facility] | | | Requests | [facility] [address] | | LABORATORY | | | | Blvd;[place] [address] | | | | + + + + + + | RESULT | NO GROWTH 6 DAYS | | [facility] | | | | | | LABORATORY | | + + + + + + | RESULT | Testing performed at | | [facility] | | | | [facility], [address] | | LABORATORY | | | | [place] | | | | | | [address]Divndci: Testing | | | | | | performed at [facility], [address] | | | | | | [address] [facility] [place], [place] | | | | | | [address] | | | | + + + + + + + + | Specimen | + + | Blood - Peripheral | | blood specimen | | (specimen) | + + + + + + + | Performing | Address | City/State/Zipcode | Phone Number | | Organization | | | | + + + + + | [facility] | [address] | [place] [address] | [phone] | + + + + + Urinalysis [...] - 1.030 | [facility] | | | [facility], | | | LABORATORY | | | [...] | 1+ (A)Comment: Testing | NONE | [facility] | | | Urine | performed at [facility], [address] | | LABORATORY | | | | [address], | | | | | | [place] [address] | | | | + + + [...] | + + + + + | [facility] | [address] | [place] [address] | [phone] | + + + + + Sodium, [...] | | | urine | performed at [facility], [address] | | | | | | [address], | | | | | | [place] [address] | | | | + + + [...] | + + + + + | [facility] | [address] | [place] [address] | [phone] | + + + + + Creatinine, [...] | | | urine | performed at [facility], [address] | | | | | | [address], | | | | | | [place] [address] | | | | + + + [...] | + + + + + | [facility] | [address] | [place] [address] | [phone] | + + + + + Lactic Acid (12/24/2019 12:27 PM PDT) + + + + + + | Component | Value | Ref Range | Performed | Pathologist | | | | | At | Signature | + + + + + + | Lactate, | 1.6Comment: Testing | 0.4 - 2.0 | [facility] | | | Serum | performed at [facility];[address] | mmol/L | LABORATORY | | | | [address];[place], [place] | | | | | | [address] | | | | + + + + + + + + | Specimen | + + | Blood | + + + + + + + | Performing | Address | City/State/Zipcode | Phone Number | | Organization | | | | + + + + + | [facility] | [address] | [place] [address] | [phone] | + + + + + Procalcitonin (12/24/2019 12:27 PM PDT) + + + + + + | Component | Value | Ref Range | Performed | Pathologist | | | | | At | Signature | + + + + + + | PROCALCITON | 0.69 (H)Comment: | <0.5 ng/mL | [facility] | | | IN | [...] | | | | | | at [facility];[address] [place] [address] | | | | | | [facility];[place] [address] | | | | + + + + + + + + | Specimen | + + | Blood | + + + + + + + | Performing | Address | City/State/Zipcode | Phone Number | | Organization | | | | + + + + + | [facility] | [address] | [place] [address] | [phone] | + + + + + POC Glucose (12/24/2019 12:25 PM PDT) + + + + + + | Component | Value | Ref Range | Performed | Pathologist | | | | | At | Signature | + + + + + + | Glucose, | 143 (H)Comment: Testing | 65 - 99 mg/dL | [facility] | | | POC | performed at [facility];[address] | | LABORATORY | | | | [address];[place] | | | | | | [address] | | | | + + + + + + + + | Specimen | + + | | + + + + + + + | Performing | Address | City/State/Zipcode | Phone Number | | Organization | | | | + + + + + | [facility] | [address] | [place] [address] | [phone] | + + + + + POC [...] | | | POC | performed at [facility];[address] | | LABORATORY | | | | [address];[place], [place] | | | | | | [address] | | | | + + + + + + + + | Specimen | + + | | + + + + + + + | Performing | Address | City/State/Zipcode | Phone Number | | Organization | | | | + + + + + | [facility] | [address] | [place] [address] | [phone] | + + + + + CBC [...] LABORATORY | | | | performed at [facility];[address] | | | | | | [address];[place] | | | | | | [address] | | | | + + + + + + + + | Specimen | + + | Blood | + + + + + + + | Performing | Address | City/State/Zipcode | Phone Number | | Organization | | | | + + + + + | [facility] | [address] | [place] [address] | [phone] | + + + + + Basic [...] | | | | | performed at [facility], [address] | | | | | | [facility], | | | | | | [place] [address] | | | | + + + + + + + + | Specimen | + + | Blood | + + + + + + + | Performing | Address | City/State/Zipcode | Phone Number | | Organization | | | | + + + + + | [facility] | [address] | [place] [address] | [phone] | + + + + + POC Glucose (12/23/2019 8:35 PM PDT) + + + + + + | Component | Value | Ref Range | Performed | Pathologist | | | | | At | Signature | + + + + + + | Glucose, | 135 (H)Comment: Testing | 65 - 99 mg/dL | [facility] | | | POC | performed at [facility];[address] | | LABORATORY | | | | [address];[place], [place] | | | | | | [address] | | | | + + + + + + + + | Specimen | + + | | + + + + + + + | Performing | Address | City/State/Zipcode | Phone Number | | Organization | | | | + + + + + | [facility] | [address] | [place] [address] | [phone] | + + + + + POC [...] | | | POC | performed at [facility];[address] | | LABORATORY | | | | [address];[place], [place] | | | | | | [address] | | | | + + + + + + + + | Specimen | + + | | + + + + + + + | Performing | Address | City/State/Zipcode | Phone Number | | Organization | | | | + + + + + | [facility] | [address] | [place] [address] | [phone] | + + + + + POC Glucose (12/23/2019 2:05 PM PDT) + + + + + + | Component | Value | Ref Range | Performed | Pathologist | | | | | At | Signature | + + + + + + | Glucose, | 158 (H)Comment: Testing | 65 - 99 mg/dL | [facility] | | | POC | performed at [facility];[address] | | LABORATORY | | | | [address];[place] | | | | | | [address] | | | | + + + + + + + + | Specimen | + + | | + + + + + + + | Performing | Address | City/State/Zipcode | Phone Number | | Organization | | | | + + + + + | [facility] | [address] | [place] [address] | [phone] | + + + + + POC [...] | | | POC | performed at [facility];[address] | | LABORATORY | | | | [address];[place] | | | | | | [address] | | | | + + + + + + + + | Specimen | + + | | + + + + + + + | Performing | Address | City/State/Zipcode | Phone Number | | Organization | | | | + + + + + | [facility] | [address] | [place] [address] | [phone] | + + + + + Basic [...] | | | | | performed at [facility];[address] | | | | | | [facility];[place], [place] | | | | | | [address] | | | | + + + + + + + + | Specimen | + + | Blood | + + + + + + + | Performing | Address | City/State/Zipcode | Phone Number | | Organization | | | | + + + + + | [facility] | [address] [facility] | [place] [address] | [phone] | + + + + + Phosphorus (12/23/2019 4:04 AM PDT) + + + + + + | Component | Value | Ref Range | Performed | Pathologist | | | | | At | Signature | + + + + + + | Phosphorus | 4.6Comment: Testing | 2.3 - 4.8 mg/dL | [facility] | | | | performed at [facility];[address] | | LABORATORY | | | | [facility];[place], [place] | | | | | | [address] | | | | + + + + + + + + | Specimen | + + | Blood | + + + + + + + | Performing | Address | City/State/Zipcode | Phone Number | | Organization | | | | + + + + + | [facility] | [address] | [place] [address] | [phone] | + + + + + Magnesium (12/23/2019 4:04 AM PDT) + + + + + + | Component | Value | Ref Range | Performed | Pathologist | | | | | At | Signature | + + + + + + | Magnesium | 2.1Comment: Testing | 1.7 - 2.4 mg/dL | [facility] | | | | performed at [facility];[address] | | LABORATORY | | | | [address];[place] | | | | | | [address] | | | | + + + + + + + + | Specimen | + + | Blood | + + + + + + + | Performing | Address | City/State/Zipcode | Phone Number | | Organization | | | | + + + + + | [facility] | [address] | [place] [address] | [phone] | + + + + + CBC [...] LABORATORY | | | | performed at [facility];[address] | | | | | | [address];[place], [place] | | | | | | [address] | | | | + + + + + + + + | Specimen | + + | Blood | + + + + + + + | Performing | Address | City/State/Zipcode | Phone Number | | Organization | | | | + + + + + | [facility] | [address] | [place] [address] | [phone] | + + + + + Hemoglobin (12/22/2019 9:37 PM PDT) + + + + + + | Component | Value | Ref Range | Performed | Pathologist | | | | | At | Signature | + + + + + + | Hemoglobin | 9.1 (L)Comment: Testing | 13.2 - 17.0 | [facility] | | | | performed at [facility];[address] | g/dL | LABORATORY | | | | [address];[place] | | | | | | [address] | | | | + + + + + + + + | Specimen | + + | Blood | + + + + + + + | Performing | Address | City/State/Zipcode | Phone Number | | Organization | | | | + + + + + | [facility] | [address] | [place] [address] | [phone] | + + + + + Hematocrit (12/22/2019 9:37 PM PDT) + + + + + + | Component | Value | Ref Range | Performed | Pathologist | | | | | At | Signature | + + + + + + | Hematocrit | 27.4 (L)Comment: Testing | 39.0 - 50.0 % | [facility] | | | | performed at [facility];[address] | | LABORATORY | | | | [address];[place] | | | | | | [address] | | | | + + + + + + + + | Specimen | + + | Blood | + + + + + + + | Performing | Address | City/State/Zipcode | Phone Number | | Organization | | | | + + + + + | [facility] | [address] | [place] [address] | [phone] | + + + + + POC [...] | | | POC | performed at [facility];[address] | | LABORATORY | | | | [address];[place] | | | | | | [address] | | | | + + + + + + + + | Specimen | + + | | + + + + + + + | Performing | Address | City/State/Zipcode | Phone Number | | Organization | | | | + + + + + | [facility] | [address] | [place] [address] | [phone] | + + + + + POC Glucose (12/22/2019 5:32 PM PDT) + + + + + + | Component | Value | Ref Range | Performed | Pathologist | | | | | At | Signature | + + + + + + | Glucose, | 153 (H)Comment: Testing | 65 - 99 mg/dL | [facility] | | | POC | performed at [facility];[address] | | LABORATORY | | | | [address];[place] | | | | | | [address] | | | | + + + + + + + + | Specimen | + + | | + + + + + + + | Performing | Address | City/State/Zipcode | Phone Number | | Organization | | | | + + + + + | [facility] | [address] | [place] [address] | [phone] | + + + + + Red [...] | [facility] | | | COMMENT | [facility];[address] | | LABORATORY | | | | [address];[place] [address] | | | | + + + + + + + + | Specimen | + + | | + + + + + + + | Performing | Address | City/State/Zipcode | Phone Number | | Organization | | | | + + + + + | [facility] | [address] | [place] [address] | [phone] | + + + + + POC Glucose (12/22/2019 10:38 AM PDT) + + + + + + | Component | Value | Ref Range | Performed | Pathologist | | | | | At | Signature | + + + + + + | Glucose, | 161 (H)Comment: Testing | 65 - 99 mg/dL | [facility] | | | POC | performed at [facility];[address] | | LABORATORY | | | | [address];[place] | | | | | | [address] | | | | + + + + + + + + | Specimen | + + | | + + + + + + + | Performing | Address | City/State/Zipcode | Phone Number | | Organization | | | | + + + + + | [facility] | [address] | [place] [address] | [phone] | + + + + + NATHALIA [...] + + | Performing | Address | City/State/[facility] | Phone Number | | [...] | | | POC | performed at [facility];[address] | g/dL | LABORATORY | | | | [address];[place], [place] | | | | | | [address] | | | | + + + + + + + + | Specimen | + + | | + + + + + + + | Performing | Address | City/State/Zipcode | Phone Number | | Organization | | | | + + + + + | [facility] | [address] | [place] [address] | [phone] | + + + + + POC [...] | | | POC | performed at [facility];[address] | g/dL | LABORATORY | | | | [address];[place], [place] | | | | | | [address] | | | | + + + + + + + + | Specimen | + + | | + + + + + + + | Performing | Address | City/State/Zipcode | Phone Number | | Organization | | | | + + + + + | [facility] | [address] | [place] [address] | [phone] | + + + + + POC ISTAT, CG8, Arterial (12/22/2019 8:47 AM PDT) + + + + + + | Component | Value | Ref Range | Performed | Pathologist | | | | | At | Signature | + + + + + + | pH, | 7.341 (L) | 7.350 - 7.450 | [facility] | | | Arterial, | [...] | | | POC | performed at [facility];888 | g/dL | LABORATORY | | | | [address];[place], [place] | | | | | | [address] | | | | + + + + + + + + | Specimen | + + | | + + + + + + + | Performing | Address | City/State/Zipcode | Phone Number | | Organization | | | | + + + + + | [facility] | [address] | [place] [address] | [phone] | + + + + + POC [...] (L)Comment: Testing | 13.7 - 16.7 | [facility] | | | POC | performed at [facility];[address] | g/dL | LABORATORY | | | | [address];[place], [place] | | | | | | [address] | | | | + + + + + + + + | Specimen | + + | | + + + + + + + | Performing | Address | City/State/Zipcode | Phone Number | | Organization | | | | + + + + + | [facility] | [address] | [place] [address] | [phone] | + + + + + Type [...] + + + | BB BAND | [id number] | | [facility] | | | | | | LABORATORY | | + + + + + + | UNIT # | [id number] | | [facility] | | | | [...] | | | RESULT | performed at [facility];[address] | | LABORATORY | | | | [address];[place], [place] | | | | | | [address] | | | | + + + + + + | UNIT # | [id number] | | [facility] | | | | [...] [facility] | [address] | [place] [address] | [phone] | + + + + + POC [...] | | | POC | performed at [facility];[address] | | LABORATORY | | | | [address];[place], [place] | | | | | | [address] | | | | + + + + + + + + | Specimen | + + | | + + + + + + + | Performing | Address | City/State/Zipcode | Phone Number | | Organization | | | | + + + + + | [facility] | [address] | [place] [address] | [phone] | + + + + + Protime [...] | | | | | performed at [facility];[address] | | | | | | [address];[place] | | | | | | [address] | | | | + + + + + + + + | Specimen | + + | Blood | + + + + + + + | Performing | Address | City/State/Zipcode | Phone Number | | Organization | | | | + + + + + | [facility] | [address] | [place] [address] | [phone] | + + + + + CBC [...] | | | | | [place] [address] | | | | + + + + + + + + | Specimen | + + | Blood | + + + + + + + | Performing | Address | City/State/Zipcode | Phone Number | | Organization | | | | + + + + + | [facility] | [address] | [place] [address] | [phone] | + + + + + Magnesium (12/22/2019 5:26 AM PDT) + + + + + + | Component | Value | Ref Range | Performed | Pathologist | | | | | At | Signature | + + + + + + | Magnesium | 2.6 (H)Comment: Testing | 1.7 - 2.4 mg/dL | [facility] | | | | performed at [facility], [address] | LABORATORY | | | | [address], | | | | | | [place] [address] | | | | + + + + + + + + | Specimen | + + | Blood | + + + + + + + | Performing | Address | City/State/Zipcode | Phone Number | | Organization | | | | + + + + + | [facility] | [address] | [place] [address] | [phone] | + + + + + Basic [...] | | | | | performed at [facility], [address] | | | | | | [address] [facility], | | | | | | [place] [address] | | | | + + + + + + + + | Specimen | + + | Blood | + + + + + + + | Performing | Address | City/State/Zipcode | Phone Number | | Organization | | | | + + + + + | [facility] | [address] | [place] [address] | [phone] | + + + + + POC [...] | | | POC | performed at [facility];[address] | LABORAT[address] | | | [address];[place], [place] | | | | | | [address] | | | | + + + + + + + + | Specimen | + + | | + + + + + + + | Performing | Address | City/State/Zipcode | Phone Number | | Organization | | | | + + + + + | [facility] | [address] | [place] [address] | [phone] | + + + + + POC [...] | | | POC | performed at [facility];[address] | | LABORATORY | | | | [address];[place] | | | | | | [address] | | | | + + + + + + + + | Specimen | + + | | + + + + + + + | Performing | Address | City/State/Zipcode | Phone Number | | Organization | | | | + + + + + | [facility] | [address] | [place] [address] | [phone] | + + + + + documented [...] | | | | | | longer, [id number] use of | | | | | [...] | | | | | ineffective use [place] 10/325 if | | | | | [...] | | | | | | | [id number] Use NIGHT DOSE for | | | | | | | doses scheduled: HS, | | | | | | | Nighttime [id number] If the BG is | | | [...] | | | | | Minutes, ONCE, [facility] 12/26/19 at | | | | | [...]
--- OUTSIDE RECORDS SUMMARY | ~2020-03-21 | XMS | Encounter Summary ---
Demographics + + + | Address | [address] | | | [place] [address] | + + + | Home Phone [...] [place] | | | | | [address] | | + + + + + | Deanna Lawson | ECON | Unknown | | + + + + + Care Team Providers + +------+ + | Care Garage Worker Name | Role | Phone | [...] + + | 12/28/ | Surgery | [facility] | Lamont Hernandez MD | EGD | | 2020 | | [facility] | [address] | | | | | INTRA [address] | [place] | | | | | [address] [place] | [address] | | | | | [address] | [phone] | | | | | [phone] | | | +--------+---------+ + + + [...] was on board. No immediate indication for INDUSTRIAL MACHINE ASSEMBLER. Patient was also seen by physical therapy and occupational therapy and was recommended for discharging to [facility]. However patient will b e going to [facility] at this time. Patient also had [...] No CVA tenderness, no spinal tenderness Disposition: [facility] Condition: Fair No discharge procedures on [...] BUNCREARATIO 30 01/01/2020 PTH 72.57 (A) 04/01/2019 [id number] 25.2 (L) 12/27/2019 CALCIUM 8.6 01/01/2020 PHOS [...] been following up with ENEDINA mena in [place]. He has unrecovered acute kidney injury and a higher baseline creatinine. At this time there is no clinical uremia, refractory volume overload, refractory acidosis, refractory hyperkalemia and no urgent indication of starting INDUSTRIAL MACHINE ASSEMBLER. Neither is there an indication for diagnostic [...] Incentive spirometry. Transfuse Prn. No indication for INDUSTRIAL MACHINE ASSEMBLER for now. Await renal recovery. On discharge [...] was completed later after rounds. Dictation software, Jiahe, was used which may contain error for [...] but not limited to potential need for INDUSTRIAL MACHINE ASSEMBLER . This is a patient with multiple [...] is waiting downstairs. Deanna Doe RN, CMSRN, [facility] Inpatient Wound Ostomy Care [phone] 01/01/2020 11:46 AM Chai, Savana Irving RN [...] BUNCREARATIO 25 12/31/2019 PTH 72.57 (A) 04/01/2019 [id number] 25.2 (L) 12/27/2019 CALCIUM 8.5 12/31/2019 PHOS [...] been following up with ENEDINA mena in [place]. He has unrecovered acute kidney injury and a higher baseline creatinine. At this time there is no clinical uremia, refractory volume overload, refractory acidosis, refractory hyperkalemia and no urgent indication of starting INDUSTRIAL MACHINE ASSEMBLER. Neither is there an indication for diagnostic [...] Incentive spirometry. Transfuse Prn. No indication for INDUSTRIAL MACHINE ASSEMBLER for now. Await renal recovery. I discussed [...] was completed later after rounds. Dictation software, Jiahe, was used which may contain error for [...] but not limited to potential need for INDUSTRIAL MACHINE ASSEMBLER . This is a patient with multiple [...] disorder: elevated PTH and phosphorus. Treatment per sealing and canceling machine operator (see thei r note). Subjective No chest [...] who was admitted as a transfer from [facility] due t o a mechanical fall sustaining [...] placement and he was accepted by [facility] in [place], [place] for rehabilitation purposes. Hospital stay was [...] Medications Current Facilty-Administered PRN Medications Ordered in [facility] Medication Dose Route Frequency Provider Last [...] 12.5-25 g 12.5-25 g Intravenous PRN Lamont Henrandez MD 25 g at 12/22/19 0843 And [...] but remains week, he is accepted at [facility] in [place] with discharge plans tomorrow for rehabilit ation if remains stable. Will continue PT/OT, wound care services and monitor progress. Acute Kidney Injury on Chronic Kidney Disease Stage 3: This was likely due to ATN precipit ated by dehydration & blood loss, Clinically stable and creatinine is down to 3.0 range, [facility] hrology service on board and [...] discharge plans to [facility] in [facility] tomorrow. DVT prophylaxis with SCD's only due to risks of bleeding. Discharge plans tomorrow to [facility] in [place], [place] for rehabi litation. Called his daughter Ms. Huerta and left a message with updated information at phone number [phone]. Jerry Chino MD 12/30/2019 turgill, DALILA Keys - 12/30/2019 12:35 PM PDTFormatting of this note might be different from the [facility] Service: Gastroenterology Consult Progress Note Hospital Day: LOS: 9 days SUBJECTIVE Patient Summary: This is an 89-year-old male with multiple medical problems and a his tory of hypertension, diabetes, CKD stage III who was transferred from [facility] t o a fall and [...] Infusions dextrose 10% pantoprazole 8 mg/hr (12/30/19 0949) PRN Medications acetaminophen OR acetaminophen OR acetaminophen, [...] deficits. PSYCHIATRIC: Appropriate, affect appears normal [facility] Gastroenterology Patient Name: Andres Guzmán [...] physician, the nurse, the anesthesiologist and the industrial technician in the pre-procedure area in the [...] successful. Thermal coagulation with Gold probe 7 Honduran x 5 pulses was successful with hemostasis. [...] 8:36 AM Number of Addenda: 0 [facility] DATA Lab Results Component Value [...] ll with any questions. Florina Cantu PA-C [facility] Gastroenterology 12/30/2019 Associated attestation - Lamont Hernandez MD - 12/31/2019 2:17 PM [id number] male with GI bleeding due to duodenal ulcer with visible vessel. The ulcer and visible vessel were tr eated with injection and gold probe thermal coagulation. The patient was seen and examined by me personally. The case was discussed with the physician's cashier assistant and I agree with the assessment and p tim as outlined in the note. Continue PPI IV infusion for total of 72 hours and then when patient is discharged he must be on twice daily PPI for 8 weeks. Resume Eliquis in 1 week. Lamont Hernandez MD Gastroenterology staffWalnutportMarycarmen, [facility] - 12/30/2019 11:05 AM PDTFormatting [...] status. Disposition: Plan to discharge tomorrow, to [facility], once medically stable and cleared by [...] BUNCREARATIO 23 12/30/2019 PTH 72.57 (A) 04/01/2019 [id number] 25.2 (L) 12/27/2019 CALCIUM 8.6 12/30/2019 PHOS [...] been following up with ENEDINA mena in [place]. That had improved with nonoliguric state but now seems to have leveled off at around 3 and this may be reflection of unrecovered acute kidney injury and a higher baseline creatinine. At this time there is no clinical uremia, refractory volume overload, refractory acidosis, refractory hyperkalemia and no urgent indication of starting INDUSTRIAL MACHINE ASSEMBLER. Neither is there an indication for diagnostic [...] Incentive spirometry. Transfuse Prn. No indication for INDUSTRIAL MACHINE ASSEMBLER for now. Await renal recovery. I discussed [...] was completed later after rounds. Dictation software, Jiahe, was used which may contain error for [...] but not limited to potential need for INDUSTRIAL MACHINE ASSEMBLER . This is a patient with multiple [...] BUNCREARATIO 30 12/29/2019 PTH 72.57 (A) 04/01/2019 [id number] 25.2 (L) 12/27/2019 CALCIUM 8.7 12/29/2019 PHOS [...] been following up with ENEDINA mena in [place]. That seems to be improving with nonoliguric state and small reduction in creatinine. At this time there is no clinical uremia, refractory volume overload, refractory acidosis, refractory hyperkalemia and no urgent indication of starting INDUSTRIAL MACHINE ASSEMBLER. Neither is there an indication for diagnostic [...] Incentive spirometry. Transfuse Prn. No indication for INDUSTRIAL MACHINE ASSEMBLER for now. Await renal recovery. I discussed [...] was completed later after rounds. Dictation software, Jiahe, was used which may contain error for [...] but not limited to potential need for INDUSTRIAL MACHINE ASSEMBLER . acetaminophen 1,000 mg Oral 3 times [...] who was admitted as a transfer from [facility] due t o a mechanical fall sustaining [...] finding placement and he was accepted by [facility] in [place], [place] for rehabilitation purposes. Hospita l stay [...] by [facility] in [place], [place] with discharge plans early next weeks [...] another 1 to 2 to SNF in [place], [place] if remains stable and improve d. Called his daughter Ms. Huerta and updated her about plans at phone number [phone]. Jerry Chino MD 12/29/2019 Norma Sarabia RN [...] BUNCREARATIO 28 12/28/2019 PTH 72.57 (A) 04/01/2019 [id number] 25.2 (L) 12/27/2019 CALCIUM 8.5 12/28/2019 PHOS [...] been following up with ENEDINA mena in [place]. That seems to be improving with nonoliguric state and small reduction in creatinine. At this time there is no clinical uremia, refractory volume overload, refractory acidosis, refractory hyperkalemia and no urgent indication of starting INDUSTRIAL MACHINE ASSEMBLER. Neither is there an indication for diagnostic [...] Incentive spirometry. Transfuse Prn. No indication for INDUSTRIAL MACHINE ASSEMBLER for now. Await renal recovery. I discussed [...] was completed later after rounds. Dictation software, Jiahe, was used which may contain error for [...] but not limited to potential need for INDUSTRIAL MACHINE ASSEMBLER . acetaminophen 1,000 mg Oral 3 times [...] Grant - 12/28/2019 10:49 AM PDT [facility] Service: Orthopedic Surgery Progress Note [...] DALILA Peralta has created this entry using [employer] Recognition [employer] and [employer] macros. The entry has been reviewed and [...] who was admitted as a transfer from [facility] due t o a mechanical fall sustaining [...] finding placement and he was accepted by [facility] in [place], [place] for rehabilitation purposes. Hospita l stay [...] Medications Current Facilty-Administered PRN Medications Ordered in [facility] Medication Dose Route Frequency Provider Last [...] making slow progress, he is accepted by [facility] in [place], [place] with discharge plans possib ly early [...] 1 to 2 to a SNF in [place], [place] when renal functions are st able and cleared by Nephrology services. Also called his daughter Ms. Huerta and updated her a bout plans at phone number [phone]. Jerry Chino MD 12/28/2019 hazal Robbins C[place] [...] been following up with ENEDINA mena in [place]. That seems to be improving with nonoliguric state and small reduction in creatinine. At this time there is no clinical uremia, refractory volume overload, refractory acidosis, refractory hyperkalemia and no urgent indication of starting INDUSTRIAL MACHINE ASSEMBLER. Neither is there an indication for diagnostic [...] Incentive spirometry. Transfuse Prn. No indication for INDUSTRIAL MACHINE ASSEMBLER for now. Await renal recovery. I discussed [...] was completed later after rounds. Dictation software, Jiahe, was used which may contain error for [...] but not limited to potential need for INDUSTRIAL MACHINE ASSEMBLER . acetaminophen 1,000 mg Oral 3 times [...] status. Disposition: Plan to discharge Monday, to [facility] Facility, once medically stable a nd cleared [...] Net -400 ml . Treatment plan: per sealing and canceling machine operator; slowly improving. *Blood pressure: labile; See VS [...] disorder: elevated PTH and phosphorus. Treatment per sealing and canceling machine operator (see thei r note). Subjective No chest [...] who was admitted as a transfer from [facility] due t o a mechanical fall sustaining [...] Medications Current Facilty-Administered PRN Medications Ordered in [facility] Medication Dose Route Frequency Provider Last [...] trength and mobility. He is accepted by [facility] in [place], [place] and discharge is delayed due to [...] to 3 days to a SNF in [place], [place] when renal functions a re stable and cleared by Nephrology services. Jerry Chino MD 12/27/2019 Linda Montalvo RN - 12/26/2019 5:09 PM PDT [facility] Service: Wound Care Consult Note [...] This case has been discussed with Dr. [place], RN and CM. Electronically signed by: ENEDINA [...] who was admitted as a transfer from [facility] due t o a mechanical fall sustaining [...] Medications Current Facilty-Administered PRN Medications Ordered in [facility] Medication Dose Route Frequency Provider Last [...] mg 8.6 mg Oral BID PRN Anders Stoo PA-C Allergy: Allergies Allergen Reactions Codeine Nausea [...] placement is recommended. 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 Huerta and the at phone number [phone] Code Status: Full Code Regino Greene MD [...] status. Disposition: Plan to discharge Monday, to [facility] Facility, once medically stable a nd cleared [...] lab follow-up and treatment per hospitalist and sealing and canceling machine operator. *Blood pressure: hypotensive; See VS for BP trending. 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 Current Weight: 63.5 kg (140 lb) Admit [...] Dr. Huerta and the at phone number [phone] Code Status: Full Code Regino Greene MD [...] conversation with family members today. Inpatient rehabilitation counselor. Code Status: Full Code Regino Greene MD [...] sodium chloride 0.9% 100 mL/hr at 12/22/19 2958 OBJECTIVE Vital Signs: Vitals with Comments 12/22/2019 [...] GAMMA NAIL; Surgeon: Melquiades Baez DO; Location: [facility] MAIN OR OTHER SURGICAL HISTORY CATARACT EXTRACTION [...] Electronically Signed by: Lamont Hernandez MD 12/29/2019 [facility] Portions of this chart may have been created with Jiahe voice recognition software. Occasi onal wrong-word or sound-alike substitutions may have occurred due to the inherent castañeda itations of voice recognition software. Please read the chart carefully and recognize, using context, where these substitutions have occurred Julián Urbina MD - 12/21/2019 7:38 PM PDTFormatting of this note m ight be different from the original. [facility] Service: Hospitalist History and Physical Date of Admission: Dec 21 2019 [facility] Reason for Admission: Right comminuted intertrochanteric fracture of the hip CHIEF COMPLAINT: Mechanical fall tripped over side curb landed on the right hip area right hip pain today HISTORY OF PRESENT ILLNESS The patient is a 89 y.o. male Transfer from [facility] after fall with right hip fracture with multiple comor bidities being on Eliquis as well requested for higher level of care to transfer to [facility] wit h orthopedic 89 years old gentleman fall at this morning mechanical fall tripped on the curb and result ed in right hip pain [facility] visited x-ray found to have a [...] and LFT Orthopedic on-call was consulted from [facility] and requested to transfer for higher level of care At [facility] with multiple comorbidities REVIEW OF SYSTEMS 12 [...] transfer lab WBC 5.9 hb10.2 hct 30.5 khp181 potassium 5.1 Bun 85 cre 2.6 Co2-24 [...] as per stated reason Chronic A. fib [id number]- VASC score is 6- Hold Eliquis for [...] Old records reviewed on EMR. Dictation software, Jiahe, used which may contain error for similar sounding words even af ter review. Personal communication requested for any clarification. Disposition: inpatient Code Status: FULL CODE Primary Care Physician: MD Julián Nobles MD 12/21/2019 documented in thi s encounter Consult Notes Lamont Hernandez MD - 12/29/2019 10:26 AM PDT Gastroenterology Consultation: [facility] 12/29/2019 Andres Jones Ramirez 89 y.o. [id number] History of present illness: Gastroenterology consultation is requested for evaluation of GI bleeding with melena. This is an 89-year-old male with multiple medical problems and a history of hypertension, d iabetes, CKD stage III who was transferred from [facility] due to a fall [...] GAMMA NAIL; Surgeon: Melquiades Baez DO; Location: [facility] MAIN OR OTHER SURGICAL HISTORY CATARACT EXTRACTION [...] file Gets together: Not on file Attends hindu service: Not on file Active member of [...] this chart may have been created with Jiahe voice recognition software. Occasi onal wrong-word or sound-alike substitutions may have occurred due to the inherent castañeda itations of voice recognition software. Please read the chart carefully and recognize, using context, where these substitutions have occurred Hayley Peres MD - 12/25/2019 8:46 PM PDT Consulted by [facility] Problem List: Patient Active Problem List [...] III with baseline creatinine 1.7 admitted to [facility] on December 20 after a mechanical fall that led to right hip fracture. The patient was transferr ed from [facility] for surgery. The patient did have [...] Tristan Gage at the nephrology clinic in [place]. The patien t is poor historian and does not recall seeing a sealing and canceling machine operator in the past. He also not awar [...] Order(s): IP CONSULT TO WOUND OSTOMY NURSE [facility] Service: Wound Care Consult Note [...] Elizabeth MD - 12/24/2019 11:33 AM PDT [facility] Service: Physicial Medicine & Rehab [...] curb and resulted in right hip pain [facility] visited x-ray found to have a right [...] diabetes, and cirrhosis He was transferred to [facility], and is now s/p ORIF with Dr. [...] GAMMA NAIL; Surgeon: Melquiades Baez, ; Location: [facility] MAIN OR OTHER SURGICAL HISTORY CATARACT EXTRACTION [...] should consist SNF placement closer to home ([place]). Code Status: Full Code Wing Marie Reed MD 12/24/2019 Melquiades Gill, - 12/22/2019 7:50 AM PDTAssociated Order(s): PROVIDER TO PROVIDER CONSULT [facility] Orthopaedic and Sports Medicine Service: [...] hip f racture. He was transferred to [facility] for concerns with other comor [...] surgery. He will be taken for a [facility] hip cephalo-medullary nail.The risks and benefits [...] might b e different from the original. [facility] TRANSFER ORDERS Patient Name: Andres Guzmán [...] limb(s)): [x] OT Evaluation & Treat [] TOTER Evaluation Treat Wound/Skin Care: [] Follow current recommendations of the wound team for treatment. [] Wound Vac management per nursing protocol. Labs/Imaging: [] PT/INR: Frequency per SNF provider Goal INR: [] Fingerstick glucose check before meals and bedtime and PRN [] Labs: Follow up: Melquiades Baez DO [address] [facility] [id number] In 2 weeks For post op care Barbara Gilman MD [address] [place] [id number] In 1 week I have advised this [...] Regino Greene MD, certify that post hospital long-term care is medically necessa ry on a continuing basis for any of the conditions for which he/she received care during thi s hospitalization. Additional Orders/Instructions: Physician's signature: 01/01/2020 10:59 AM [facility] USE ONLY: [] Admitting orders [...] HIGH Current Discharge Plan Anticipated Discharge Disposition: long-term facility Expected DC Date: 12/31/2019 Barriers to Discharge: placement Steps Taken Toward Discharge: Attended morning rounds, called [facility] and provided upd ate of Pt Next Steps: d/c to [facility] Community Support Services Current Outpt/Agency/Support Groups: none Community Agency Name: none Other Resources: Discharge Transportation Transportation Needs: agency transportation Notes: Pt on course to discharge to [facility] tomorrow. Idalia ma with [facility] team and they are accepting Pt tomorrow if Pt is medically ready. Cm will follow for d/c needs that arise. Electronically signed: Ja Marcus RN 12/31/2019 3:54 PM lan of Andrez Perry PTA - 12/31/2019 2:04 PM PDT Physical Therapy Treatment Note Recommended discharge disposition: long-term facility Post discharge physical therapy recommendation: Equipment [...] LTG Status continued at 12/30/2019 0805 LTG Richardson Level supervised at 12/30/2019 0805 LTG Assistive Device none at 12/30/2019 0805 All Transfers Goal Most Recent Value LTG Status new at 12/30/2019804 LTG Richardson Level minimum assist (75% patient effort) at 12/30/2019804 LTG Assistive Device 2 wheeled walker (FWW) at 12/30/2019804 Gait Goal Most Recent Value LTG Status new at 12/30/2019804 LTG Richardson Level minimum assist (75% patient effort) at 12/30/2019804 LTG Assistive Device 2 wheeled walker (FWW) at 12/30/2019 08 LTG Distance (feet) 50ft at 12/30/2019 08 PT Time Calculation Individual Start Time: 1307 Individual Stop Time: 1320 Individual Total Time: 13 PT Total Treatment Time: 13 lan of [facility] - Liz Cabral RN - 12/31/2019 8:00 [...] of plan for discharge to [facility] tomorrow and has no concerns regarding [...] Physical Therapy Treatment Note Recommended discharge disposition: long-term facility Post discharge physical therapy recommendation: Equipment [...] Bed Mobility Sit to Supine, Level of Richardson: moderate assist (50% patient effort) Safety Issues: decreased use of legs for bridging/pushing Impairments: strength decreased Transfers Chair-Bed, Level of Richardson: moderate assist (50% patient effort) Zjw-Vamjg-Kow, Assistive Device: gait belt Sit-Stand, Level of Richardson: moderate assist (50% patient effort) Stand-Sit, Level of Richardson: moderate assist (50% patient effort) Mwz-Tidtz-Ttg, Assistive Device: gait belt Safety Issues: balance decreased during turns, step length decreased Impairments: strength decreased Goals Reflects last filed data and may be from multiple contributors. All Bed Mobility Goal Most Recent Value LTG Status continued at 12/30/2019 0805 LTG Richardson Level supervised at 12/30/2019 0805 LTG Assistive Device none at 12/30/2019 0805 All Transfers Goal Most Recent Value LTG Status new at 12/30/2019 0805 LTG Richardson Level minimum assist (75% patient effort) at 12/30/2019 0805 LTG Assistive Device 2 wheeled walker (FWW) at 12/30/2019 0805 Gait Goal Most Recent Value LTG Status new at 12/30/2019 0805 LTG Richardson Level minimum assist (75% patient effort) at [...] Bed in low position, gait belt available, x ray physician socks on. Problem: Skin Injury Risk Increased [...] Physical Therapy Re-Assessment Note Recommended discharge disposition: long-term facility Post discharge physical therapy recommendation: ongoing low intensity therapy, will benefi t from structured setting Equipment Recommendations: (TBD) Barriers to community-based discharge Physical Impairment, Pain, and Fall risk Planned Interventions: balance training, bed mobility training, gait training, home exercis e program, manual therapy techniques, patient/family education, ROM (Range of Motion), stair training, strengthening, stretching, libyan ball techniques, wheelchair management/propulsio n training Recommended [...] Documentation: sit to/from stand Sit-Stand, Level of Richardson: moderate assist (50% patient effort) Stand-Sit, Level of Richardson: moderate assist (50% patient effort) Zta-Xmxkx-Add, Assistive Device: other (see comments)(platform walker ) Maintain Weight Bearing Status: able to maintain weight bearing status Safety Issues: balance decreased during turns Impairments: pain, strength decreased, impaired balance Gait Gait Comments: ambulated with shuffled steps and decreased quita Level of Richardson: moderate assist (50% patient effort) Assistive Device: [...] LTG Status continued at 12/30/2019 08 LTG Richardson Level supervised at 12/30/2019 08 LTG Assistive Device none at 12/30/2019 0805 All Transfers Goal Most Recent Value LTG Status new at 12/30/2019 08 LTG Richardson Level minimum assist (75% patient effort) at 12/30/2019 08 LTG Assistive Device 2 wheeled walker (FWW) at 12/30/2019 0805 Gait Goal Most Recent Value LTG Status new at 12/30/2019804 LTG Richardson Level minimum assist (75% patient effort) at [...] RN at 05/2020 6:04 PM [facility] - 12/29/2019 1:37 [...] Physical Therapy Treatment Note Recommended discharge disposition: long-term facility Post discharge physical therapy recommendation: Equipment [...] Bed Mobility Supine to Sit, Level of Richardson: moderate assist (50% patient effort) Sit to Supine, Level of Richardson: moderate assist (50% patient effort) Safety Issues: decreased use of legs for bridging/pushing Impairments: strength decreased Transfers Sit-Stand, Level of Richardson: moderate assist (50% patient effort) Stand-Sit, Level of Richardson: moderate assist (50% patient effort) Zgs-Vtxou-Ejd, Assistive Device: other (see comments)(UP walker) Safety Issues: balance decreased during turns, step length decreased Impairments: strength decreased Gait Level of Richardson: moderate assist (50% patient effort) Assistive Device: [...] LTG Status new at 12/23/2019 1600 LTG Richardson Level supervised at 12/23/2019 1600 LTG Assistive Device none at 12/23/2019 1600 All Transfers Goal Most Recent Value LTG Status new at 12/23/2019 1600 LTG Richardson Level modified independent at 12/23/2019 1600 LTG Assistive Device 2 wheeled walker (FWW) at 12/23/2019 1600 Gait Goal Most Recent Value LTG Status new at 12/23/2019 1600 LTG Richardson Level stand by assist at 12/23/2019 1600 [...] Bed Mobility Supine to Sit, Level of Richardson: moderate assist (50% patient effort) Safety Issues: decreased use of legs for bridging/pushing Impairments: strength decreased Transfers Sit-Stand, Level of Richardson: moderate assist (50% patient effort) Stand-Sit, Level of Richardson: moderate assist (50% patient effort) Vrl-Kuvkk-Dxo, Assistive Device: other (see comments)(UP walker) Safety Issues: balance decreased during turns, step length decreased Impairments: strength decreased Exercises Bed exercises: ankle pumps, quad sets, heel slides, hip abduction/adduction, glut sets Goals Reflects last filed data and may be from multiple contributors. All Bed Mobility Goal Most Recent Value LTG Status new at 12/23/2019 1600 LTG Richardson Level supervised at 12/23/2019 1600 LTG Assistive Device none at 12/23/2019 1600 All Transfers Goal Most Recent Value LTG Status new at 12/23/2019 1600 LTG Richardson Level modified independent at 12/23/2019 1600 LTG Assistive Device 2 wheeled walker (FWW) at 12/23/2019 1600 Gait Goal Most Recent Value LTG Status new at 12/23/2019 1600 LTG Richardson Level stand by assist at 12/23/2019 1600 [...] handled ghada e horn, long handled sponge, food vendor, sock aide Barriers to community-based discharge: Level of assistance for ADLs/Mobility and Fall risk Recommended Frequency: 3 times/wk for 10 days with reassessment due by 01/03/20 Summary: pt supine in bed upon [employer] CLE[employer] SUPER[employer]OR arrival. Agreeable to participate in OT session [...] x1, rest break inbetween set d/t fatigue. JACKSON for proper tech during ex able to continue seq uence intitially however would require cueing/assist later on in reps. Goals Reflects last filed data and may be from multiple contributors. LB Dressing Goal Most Recent Value LTG Status new at 12/24/2019 0953 LTG Richardson Level moderate assist (50% patient effort), verbal cues required at 12/23 0953 LTG Adaptive Equipment food vendor, shoe horn, long handled, sock-aid [AE as needed] at 2019 0953 Toilet Transfer Goal Most Recent Value LTG Status new at 12/24/2019 0953 LTG Richardson Level minimum assist (75% patient effort), verbal [...] Bed Mobility Supine to Sit, Level of Richardson: moderate assist (50% patient effort) Sit to Supine, Level of Richardson: moderate assist (50% patient effort) Safety Issues: decreased use of legs for bridging/pushing Impairments: strength decreased Transfers Sit-Stand, Level of Richardson: moderate assist (50% patient effort) Stand-Sit, Level of Richardson: moderate assist (50% patient effort) Acp-Dmewt-Xpu, Assistive Device: other (see comments)(Up walker) Safety Issues: balance decreased during turns, step length decreased Impairments: strength decreased Gait Level of Richardson: moderate assist (50% patient effort) Assistive Device: [...] LTG Status new at 12/23/2019 1600 LTG Richardson Level supervised at 12/23/2019 1600 LTG Assistive Device none at 12/23/2019 1600 All Transfers Goal Most Recent Value LTG Status new at 12/23/2019 1600 LTG Richardson Level modified independent at 12/23/2019 1600 LTG Assistive Device 2 wheeled walker (FWW) at 12/23/2019 1600 Gait Goal Most Recent Value LTG Status new at 12/23/2019 1600 LTG Richardson Level stand by assist at 12/23/2019 1600 [...] Bed Mobility Supine to Sit, Level of Richardson: moderate assist (50% patient effort) Safety Issues: decreased use of legs for bridging/pushing Impairments: strength decreased Transfers Sit-Stand, Level of Richardson: moderate assist (50% patient effort) Stand-Sit, Level of Richardson: moderate assist (50% patient effort) Kia-Ftmed-Ejr, Assistive Device: other (see comments)(Up walker) Safety Issues: balance decreased during turns, step length decreased Impairments: strength decreased Gait Level of Richardson: moderate assist (50% patient effort) Assistive Device: [...] LTG Status new at 12/23/2019 1600 LTG Richardson Level supervised at 12/23/2019 1600 LTG Assistive Device none at 12/23/2019 1600 All Transfers Goal Most Recent Value LTG Status new at 12/23/2019 1600 LTG Richardson Level modified independent at 12/23/2019 1600 LTG Assistive Device 2 wheeled walker (FWW) at 12/23/2019 1600 Gait Goal Most Recent Value LTG Status new at 12/23/2019 1600 LTG Richardson Level stand by assist at 12/23/2019 1600 [...] HIGH Current Discharge Plan Anticipated Discharge Disposition: long-term facility Expected DC Date: 12/30/2019 Barriers to Discharge: placement Steps Taken Toward Discharge: Attended morning rounds Next Steps: d/c to [facility] Community Support Services Current Outpt/Agency/Support Groups: none Community Agency Name: none Other Resources: Discharge Transportation Transportation Needs: agency transportation Notes: Pt not medically ready for discharge. Cm called Idalia CM at [facility] and updat ed her on Pt progress. Pt may be ready for d/c Monday. Cm will continue to follow for placem ent needs. Electronically signed: Ja Marcus RN 12/26/2019 11:46 AM lan of [facility] t - 12/26/2019 10:00 AM PDT [...] Bed Mobility Sit to Supine, Level of Richardson: maximal assist (25% patient effort), verbal cues requ ired Safety Issues: decreased use of legs for bridging/pushing, decreased use of arms for pushin g/pulling Impairments: strength decreased, pain, impaired balance Transfers Sit-Stand, Level of Richardson: moderate assist (50% patient effort), verbal cues require d Stand-Sit, Level of Richardson: moderate assist (50% patient effort), verbal cues require d Syv-Qpskj-Sms, Assistive Device: 2 wheeled walker (FWW), gait belt Safety Issues: sequencing ability decreased, balance decreased during turns Gait Level of Richardson: moderate assist (50% patient effort) Assistive Device: [...] LTG Status new at 12/23/2019 1600 LTG Richardson Level supervised at 12/23/2019 1600 LTG Assistive Device none at 12/23/2019 1600 All Transfers Goal Most Recent Value LTG Status new at 12/23/2019 1600 LTG Richardson Level modified independent at 12/23/2019 1600 LTG Assistive Device 2 wheeled walker (FWW) at 12/23/2019 1600 Gait Goal Most Recent Value LTG Status new at 12/23/2019 1600 LTG Richardson Level stand by assist at 12/23/2019 1600 [...] HIGH Current Discharge Plan Anticipated Discharge Disposition: long-term facility Expected DC Date: 12/27/2019 Barriers to Discharge: placement Steps Taken Toward Discharge: Attended rounds Next Steps: d/c to [facility] Community Support Services Current Outpt/Agency/Support Groups: none Community Agency Name: none Other Resources: Discharge Transportation Transportation Needs: agency transportation Notes: Pt not medically ready for discharge. Cm received call from [facility] from [facility]. Pt has been accepted but wants [...] (Range of Motion), stair training, strengthening, stretching, libyan ball techniques, w heelchair management/propulsion training Recommended [...] HOB elevated Supine to Sit, Level of Richardson: moderate assist (50% patient effort), verbal cues req uired Safety Issues: decreased use of legs for bridging/pushing, decreased use of arms for pushin g/pulling Impairments: strength decreased, pain, impaired balance Transfers Additional Documentation: sit to/from stand Chair-Bed, Level of Richardson: moderate assist (50% patient effort), verbal cues require d Iue-Bcsvf-Zgl, Assistive Device: 2 wheeled walker (FWW) Sit-Stand, Level of Richardson: moderate assist (50% patient effort), verbal cues require d Stand-Sit, Level of Richardson: moderate assist (50% patient effort), verbal cues require d Stf-Jlmfn-Maz, Assistive Device: 2 wheeled walker (FWW), gait belt Maintain Weight Bearing Status: able to maintain weight bearing status Safety Issues: sequencing ability decreased, balance decreased during turns Impairments: impaired balance, coordination impaired, pain, decreased flexibility Gait Gait Comments: 4 steps to chair Level of Richardson: moderate assist (50% patient effort) Assistive Device: [...] LTG Status new at 12/23/2019 1600 LTG Richardson Level supervised at 12/23/2019 1600 LTG Assistive Device none at 12/23/2019 1600 All Transfers Goal Most Recent Value LTG Status new at 12/23/2019 1600 LTG Richardson Level modified independent at 12/23/2019 1600 LTG Assistive Device 2 wheeled walker (FWW) at 12/23/2019 1600 Gait Goal Most Recent Value LTG Status new at 12/23/2019 1600 LTG Richardson Level stand by assist at 12/23/2019 1600 [...] long handled shoe horn, long handled sponge, food vendor, sock aide(BSC (?)) Barriers to community-based discharge [...] seated in the recliner Grooming, Level of Richardson: supervised Assistive Device: none Grooming Assess/Train, Position: sitting Bed Mobility Additional Documentation: supine to/from sit Assistive Device: HOB elevated, bed rails Sit to Supine, Level of Richardson: maximal assist (25% patient effort), verbal cues [...] stand, bed to/from chair Chair-Bed, Level of Richardson: moderate assist (50% patient effort), verbal cues require d Daf-Rbkjl-Gdw, Assistive Device: gait belt Sit-Stand, Level of Richardson: moderate assist (50% patient effort), verbal cues require d Stand-Sit, Level of Richardson: moderate assist (50% patient effort), verbal cues require d Oxe-Wsjha-Kau, Assistive Device: 2 wheeled walker (FWW), gait [...] LTG Status new at 12/24/2019 0953 LTG Richardson Level moderate assist (50% patient effort), verbal cues required at 12/23 0953 LTG Adaptive Equipment food vendor, shoe horn, long handled, sock-aid [AE as needed] at 2019 0953 Toilet Transfer Goal Most Recent Value LTG Status new at 12/24/2019 0953 LTG Richardson Level minimum assist (75% patient effort), verbal [...] HOB elevated Supine to Sit, Level of Richardson: moderate assist (50% patient effort), verbal cues req uired Safety Issues: decreased use of arms for pushing/pulling, decreased use of legs for bridgin g/pushing Impairments: decreased flexibility, pain, impaired balance Transfers Additional Documentation: sit to/from stand Sit-Stand, Level of Richardson: minimal assist (75% patient effort) Stand-Sit, Level of Richardson: minimal assist (75% patient effort) Yrl-Jyxhx-Rsj, Assistive Device: 2 wheeled walker (FWW) Maintain Weight Bearing Status: able to maintain weight bearing status Safety Issues: sequencing ability decreased Impairments: decreased flexibility, impaired balance, pain Gait Gait Comments: side stepping to recliner Level of Richardson: minimal assist (75% patient effort) Assistive Device: [...] LTG Status new at 12/23/2019 1600 LTG Richardson Level supervised at 12/23/2019 1600 LTG Assistive Device none at 12/23/2019 1600 All Transfers Goal Most Recent Value LTG Status new at 12/23/2019 1600 LTG Richardson Level modified independent at 12/23/2019 1600 LTG Assistive Device 2 wheeled walker (FWW) at 12/23/2019 1600 Gait Goal Most Recent Value LTG Status new at 12/23/2019 1600 LTG Richardson Level stand by assist at 12/23/2019 1600 [...] discharge planning concerns Services Anticipated at Discharge: long-term facility Equipment Used at Home: cane, straight, single point, 2 wheeled walker (FWW) Equipment Needed after Discharge: walker, standard Durable Medical Equipment Provider: Pharmacy/Medication Needs: other (see comments)([facility] in [place], [place]) Transportation Needs: agency transportation Initial Plan Anticipated Discharge Disposition: long-term facility Expected DC Date: other (see comments)(SNF [...] stated that he would like to go [facility] bed if needed before going home. Cm called [facility] Idalia Garduno [phone]. Cm sent referral to [facility]. Pt stated that Deanna (daughter) edgardo harmon [...] (Range of Motion), stair training, strengthening, stretching, libyan ball techniques, wheelchair management/propulsio n training Recommended [...] HOB elevated Supine to Sit, Level of Richardson: moderate assist (50% patient effort) Sit to Supine, Level of Richardson: maximal assist (25% patient effort) Safety Issues: decreased use of arms for pushing/pulling, decreased use of legs for bridgin g/pushing Impairments: decreased flexibility, impaired balance, pain Transfers Additional Documentation: sit to/from stand Sit-Stand, Level of Richardson: minimal assist (75% patient effort) Stand-Sit, Level of Richardson: minimal assist (75% patient effort) Aaw-Fpbdj-Gqe, Assistive Device: 2 wheeled walker (FWW) Maintain [...] LTG Status new at 12/23/2019 1600 LTG Richardson Level supervised at 12/23/2019 1600 LTG Assistive Device none at 12/23/2019 1600 All Transfers Goal Most Recent Value LTG Status new at 12/23/2019 1600 LTG Richardson Level modified independent at 12/23/2019 1600 LTG Assistive Device 2 wheeled walker (FWW) at 12/23/2019 1600 Gait Goal Most Recent Value LTG Status new at 12/23/2019 1600 LTG Richardson Level stand by assist at 12/23/2019 1600 [...] Melquiades Baez DO - 12/22/2019 10:34 AM [facility] Medicine Service: [...] by: Melquiades Baez DO, 12/22/2019 10:35 AM [facility] lan of Care - Cru z, JIAN [...] 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 EKG and Ches [...] day shift and every two hours on security police to monitor and medicate appropriately. 2. Staff [...] [address] | | | | | | [place] [address] | | | | | | [phone] | | | | | | | | +--------+ + + + + | 03/24/ | Hospital | | Anna Edouard, | Esophagitis | 2019 | Encounter | | MD [address] | | | | | | [place] [address] | | | | | | [phone] | | | | | | | | +--------+ + + + + | 03/24/ | Surgery | | Anna Edouard | EGD | 2019 | | | [address] | | | | | | [place] [id number] | | | | | | [phone] | | | | | | | | +--------+ + + + + | 03/31/ | Office | Orthopedic Surgery | Melquiades Baez | | | 2019 | Visit | | DO [address] | | | | | | [place], | | | | | | [place] [address] | | | | | | [phone] | | | | | | | | +--------+ + + + + | 04/21/ | Office | Nephrology | Isiah Jade MD | | | 2019 | Visit | | [address] [facility] | | | | | | [address] | | | | | | [address] | | | | | | | | +--------+ + + + + | 05/07/ | Office | Cardiology | Darek Charlee | | | 2019 | Visit | | [address] | | | | | | [address] | | | | | | [place] [address] | | | | | | [phone] | | | | | | | [...] + +--------+ + + + | *TERMED* NE UPPER GI | Routin | 12/29/2019 | [...] + +--------+ + + + | GATO JHONNYELLAHAVENAbimael, | Routin | 12/22/2019 | | Results [...] | | | POC | performed at [facility];[address] | LABORATORY | | | | [address];[place], [place] | | | | | | [address] | | | | + + + + + + + + | Specimen | + + | | + + + + + + + | Performing | Address | City/State/Zipcode | Phone Number | | Organization | | | | + + + + + | [facility] | [address] | [place] [address] | [phone] | + + + + + POC [...] | | | POC | performed at [facility];[address] | | LABORATORY | | | | [address];[place] | | | | | | [address] | | | | + + + + + + + + | Specimen | + + | | + + + + + + + | Performing | Address | City/State/Zipcode | Phone Number | | Organization | | | | + + + + + | [facility] | [address] | [place] [address] | [phone] | + + + + + Basic [...] | 8.6 | 8.5 - 10.5 | [facility] | | | | | mg/dL | LABORATORY | | + + + + + + | Estimated | 23 (L)Comment: GFR <60: | >60 | [facility] | | | GFR | CHRONIC [...] | | | | | | MDRD [facility] traceable | | | | | | equation.Testing | | | | | | performed at [facility] | | | | | | [facility];[place], [place] | | | | | | [address] | | | | + + + + + + + + | Specimen | + + | Blood | + + + + + + + | Performing | Address | City/State/Zipcode | Phone Number | | Organization | | | | + + + + + | [facility] | [address] | [place] [address] | [phone] | + + + + + CBC [...] | | | Absolute | performed at [facility];[address] | K/uL | LABORATORY | | | | [address];[place], [place] | | | | | | [address] | | | | + + + + + + + + | Specimen | + + | Blood | + + + + + + + | Performing | Address | City/State/Zipcode | Phone Number | | Organization | | | | + + + + + | [facility] | [address] | [place] [address] | [phone] | + + + + + POC Glucose (12/31/2019 9:02 PM PDT) + + + + + + | Component | Value | Ref Range | Performed | Pathologist | | | | | At | Signature | + + + + + + | Glucose, | 137 (H)Comment: Testing | 65 - 99 mg/dL | [facility] | | | POC | performed at [facility];[address] | | LABORATORY | | | | [address];[place] | | | | | | [address] | | | | + + + + + + + + | Specimen | + + | | + + + + + + + | Performing | Address | City/State/Zipcode | Phone Number | | Organization | | | | + + + + + | [facility] | [address] | [place] [address] | [phone] | + + + + + POC Glucose (12/31/2019 5:31 PM PDT) + + + + + + | Component | Value | Ref Range | Performed | Pathologist | | | | | At | Signature | + + + + + + | Glucose, | 196 (H)Comment: Testing | 65 - 99 mg/dL | [facility] | | | POC | performed at [facility];[address] | | LABORATORY | | | | [address];[place] | | | | | | [address] | | | | + + + + + + + + | Specimen | + + | | + + + + + + + | Performing | Address | City/State/Zipcode | Phone Number | | Organization | | | | + + + + + | [facility] | [address] | [place] [address] | [phone] | + + + + + POC [...] | | | POC | performed at [facility];[address] | | LABORATORY | | | | [address];[place], [place] | | | | | | [address] | | | | + + + + + + + + | Specimen | + + | | + + + + + + + | Performing | Address | City/State/Zipcode | Phone Number | | Organization | | | | + + + + + | [facility] | [address] | [place] [address] | [phone] | + + + + + POC [...] | | | POC | performed at [facility];[address] | | LABORATORY | | | | [address];[place] | | | | | | [address] | | | | + + + + + + + + | Specimen | + + | | + + + + + + + | Performing | Address | City/State/Zipcode | Phone Number | | Organization | | | | + + + + + | [facility] | [address] | [place] [address] | [phone] | + + + + + Basic [...] | 8.5 | 8.5 - 10.5 | [facility] | | | | | mg/dL | LABORATORY | | + + + + + + | Estimated | 18 (L)Comment: GFR <60: | >60 | [facility] | | | GFR | CHRONIC [...] | | | | | | MDRD IDUT traceable | | | | | | equation.Testing | | | | | | performed at [facility], [address] | | | | | | [facility], | | | | | | [place] [address] | | | | + + + + + + + + | Specimen | + + | Blood | + + + + + + + | Performing | Address | City/State/Zipcode | Phone Number | | Organization | | | | + + + + + | [facility] | [address] | [place] [address] | [phone] | + + + + + CBC [...] | | | Absolute | performed at [facility], [address] | K/uL | LABORATORY | | | | [address], | | | | | | [place] [address] | | | | + + + + + + + + | Specimen | + + | Blood | + + + + + + + | Performing | Address | City/State/Zipcode | Phone Number | | Organization | | | | + + + + + | [facility] | [address] | [place] [address] | [phone] | + + + + + POC Glucose (12/30/2019 8:55 PM PDT) + + + + + + | Component | Value | Ref Range | Performed | Pathologist | | | | | At | Signature | + + + + + + | Glucose, | 192 (H)Comment: Testing | 65 - 99 mg/dL | [facility] | | | POC | performed at [facility];[address] | | LABORATORY | | | | [address];[place] | | | | | | [address] | | | | + + + + + + + + | Specimen | + + | | + + + + + + + | Performing | Address | City/State/Zipcode | Phone Number | | Organization | | | | + + + + + | [facility] | [address] | [place] [address] | [phone] | + + + + + POC Glucose (12/30/2019 4:11 PM PDT) + + + + + + | Component | Value | Ref Range | Performed | Pathologist | | | | | At | Signature | + + + + + + | Glucose, | 130 (H)Comment: Testing | 65 - 99 mg/dL | [facility] | | | POC | performed at [facility];[address] | | LABORATORY | | | | [address];[place] | | | | | | [address] | | | | + + + + + + + + | Specimen | + + | | + + + + + + + | Performing | Address | City/State/Zipcode | Phone Number | | Organization | | | | + + + + + | [facility] | [address] | [place] [address] | [phone] | + + + + + POC [...] | | | POC | performed at [facility];[address] | | LABORATORY | | | | [address];[place], [place] | | | | | | [address] | | | | + + + + + + + + | Specimen | + + | | + + + + + + + | Performing | Address | City/State/Zipcode | Phone Number | | Organization | | | | + + + + + | [facility] | [address] | [place] [address] | [phone] | + + + + + Basic [...] 20 (L)Comment: GFR <60: | >60 | [facility] | | | GFR | CHRONIC [...] | | | | | | MDRD IDUT traceable | | | | | | equation.Testing | | | | | | performed at [facility] | | | | | | [facility];[place], [place] | | | | | | [address] | | | | + + + + + + + + | Specimen | + + | Blood | + + + + + + + | Performing | Address | City/State/Zipcode | Phone Number | | Organization | | | | + + + + + | [facility] | [address] | [place] [address] | [phone] | + + + + + POC [...] | | | POC | performed at [facility] [facility];[address] | | LABORATORY | | | | [address];[place] | | | | | | [address] | | | | + + + + + + + + | Specimen | + + | | + + + + + + + | Performing | Address | City/State/Zipcode | Phone Number | | Organization | | | | + + + + + | [facility] | [address] | [place] [address] | [phone] | + + + + + CBC [...] | | | Absolute | performed at [facility];[address] | K/uL | LABORATORY | | | | [address];[place], [place] | | | | | | [address] | | | | + + + + + + + + | Specimen | + + | Blood | + + + + + + + | Performing | Address | City/State/Zipcode | Phone Number | | Organization | | | | + + + + + | [facility] | [address] | [place] [address] | [phone] | + + + + + POC Glucose (12/29/2019 11:56 PM PDT) + + + + + + | Component | Value | Ref Range | Performed | Pathologist | | | | | At | Signature | + + + + + + | Glucose, | 109 (H)Comment: Testing | 65 - 99 mg/dL | [facility] | | | POC | performed at [facility];[address] | | LABORATORY | | | | [address];[place] | | | | | | [address] | | | | + + + + + + + + | Specimen | + + | | + + + + + + + | Performing | Address | City/State/Zipcode | Phone Number | | Organization | | | | + + + + + | [facility] | [address] | [place] [address] | [phone] | + + + + + Hemoglobin [...] [facility] | | | | performed at [facility];[address] | | LABORATORY | | | | [address];[place] | | | | | | [address] | | | | + + + + + + + + | Specimen | + + | Blood | + + + + + + + | Performing | Address | City/State/Zipcode | Phone Number | | Organization | | | | + + + + + | [facility] | [address] | [place] [address] | [phone] | + + + + + POC Glucose (12/29/2019 6:06 PM PDT) + + + + + + | Component | Value | Ref Range | Performed | Pathologist | | | | | At | Signature | + + + + + + | Glucose, | 128 (H)Comment: Testing | 65 - 99 mg/dL | [facility] | | | POC | performed at [facility];[address] | | LABORATORY | | | | [address];[place], [place] | | | | | | [address] | | | | + + + + + + + + | Specimen | + + | | + + + + + + + | Performing | Address | City/State/Zipcode | Phone Number | | Organization | | | | + + + + + | [facility] | [address] | [place] [address] | [phone] | + + + + + Hemoglobin [...] [facility] | | | | performed at [facility];[address] | | LABORATORY | | | | [address];[place] | | | | | | [address] | | | | + + + + + + + + | Specimen | + + | Blood | + + + + + + + | Performing | Address | City/State/Zipcode | Phone Number | | Organization | | | | + + + + + | [facility] | [address] | [place] [address] | [phone] | + + + + + POC [...] | | | POC | performed at [facility];[address] | | LABORATORY | | | | [address];[place] | | | | | | [address] | | | | + + + + + + + + | Specimen | + + | | + + + + + + + | Performing | Address | City/State/Zipcode | Phone Number | | Organization | | | | + + + + + | [facility] | [address] | [place] [address] | [phone] | + + + + + POC [...] | | | POC | performed at [facility];[address] | | LABORATORY | | | | [address];[place], [place] | | | | | | [address] | | | | + + + + + + + + | Specimen | + + | | + + + + + + + | Performing | Address | City/State/Zipcode | Phone Number | | Organization | | | | + + + + + | [facility] | [address] | [place] [address] | [phone] | + + + + + Surgical [...] | | technical component was performed by [facility], [address] [place] [address] | | [place] [address] (Hair Spring Cutter: Padmini Sellers MD; CLIA# | | | [id number]). Professional interpretation was performed by[facility] | | | [facility], [address], | | | [place] [id number] (Hair Spring Cutter: Oscar Maynard M.D.; CLIA#: | | | [id number]). Diagnostician: Padmini Sellers | | | MDPathologistElectronically [...] | |The technical component was performed by [facility], [address] [place] [address] (Hair Spring Cutter: Padmini Sellers MD; CLIA# [id number]). Professional interpretation was performed by | | |[facility], [address] [address] (Hair Spring Cutter: Oscar Maynard M.D.; CLIA#: [id number]). | | | | | |Diagnostician: Padmini [...] | | + +---------+ + + EGD 12/29/2019 8:36 AM PDT) + + | Specimen | + + | | + + + + + | Narrative | Performed At | + + + | [facility] | [facility] | | [facility] | [facility] | | CenterGastroenterology | | | Patient Name: Andres Guzmán | | | Procedure Date: 12/29/2019 8:36 AMMRN: [id number] | | | of : 1930 | [...] the anesthesiologist and the | | | industrial technician in the pre-procedure area in the [...] | | | with Gold probe 7 [place] x 5 pulses was successful with | [...] | | AMNumber of Addenda: 0 [facility] | | | - Check hemoglobin q 6 hours for one day. | | | | | | | | |LAMONT HERNANDEZ MD | | |12/29/2019 10:19:54 AM | | |This report has been signed electronically. | | | | | |Note Initiated On: 12/29/2019 8:36 AM | | |Number of Addenda: 0 | | | | | | [facility] | | + + + + +---------+ + + | Performing | Address | City/State/Unm Cancer Centercode | Phone Number | | Organization [...] [facility] | | | | performed at [facility];[address] | | LABORATORY | | | | [facility];[place], [place] | | | | | | [address] | | | | + + + + + + + + | Specimen | + + | Blood | + + + + + + + | Performing | Address | City/State/Zipcode | Phone Number | | Organization | | | | + + + + + | [facility] | [address] | [place] [address] | [phone] | + + + + + POC Glucose (12/29/2019 6:06 AM PDT) + + + + + + | Component | Value | Ref Range | Performed | Pathologist | | | | | At | Signature | + + + + + + | Glucose, | 146 (H)Comment: Testing | 65 - 99 mg/dL | [facility] | | | POC | performed at [facility];[address] | | LABORATORY | | | | [address];[place] | | | | | | [address] | | | | + + + + + + + + | Specimen | + + | | + + + + + + + | Performing | Address | City/State/Zipcode | Phone Number | | Organization | | | | + + + + + | [facility] | [address] | [place] [address] | [phone] | + + + + + CBC [...] | | | Absolute | performed at [facility];[address] | K/uL | LABORATORY | | | | [address];[place] | | | | | | [address] | | | | + + + + + + + + | Specimen | + + | Blood | + + + + + + + | Performing | Address | City/State/Zipcode | Phone Number | | Organization | | | | + + + + + | [facility] | [address] | [place] [address] | [phone] | + + + + + Protime [...] | | | | | performed at [facility];[address] | | | | | | [address];[place], [place] | | | | | | [address] | | | | + + + + + + + + | Specimen | + + | Blood | + + + + + + + | Performing | Address | City/State/Zipcode | Phone Number | | Organization | | | | + + + + + | [facility] | [address] | [place] [address] | [phone] | + + + + + Basic [...] 20 (L)Comment: GFR <60: | >60 | [facility] | | | GFR | CHRONIC [...] | | | | | | [facility]D [facility] traceable | | | | | | equation.Testing | | | | | | performed at [facility];[address] | | | | | | [address] [facility];[place], [place] | | | | | | [address] | | | | + + + + + + + + | Specimen | + + | Blood | + + + + + + + | Performing | Address | City/State/Zipcode | Phone Number | | Organization | | | | + + + + + | [facility] | [address] [facility] | [place] [address] | [phone] | + + + + + POC [...] | | | POC | performed at [facility];[address] | | LABORATORY | | | | [address];[place] | | | | | | [address] | | | | + + + + + + + + | Specimen | + + | | + + + + + + + | Performing | Address | City/State/Zipcode | Phone Number | | Organization | | | | + + + + + | [facility] | [address] | [place] [address] | [phone] | + + + + + Hemoglobin [...] Testing | 39.0 - 50.0 % | [facility] | | | | performed at [facility];[address] | | LABORATORY | | | | [address];[place] | | | | | | [address] | | | | + + + + + + + + | Specimen | + + | Blood | + + + + + + + | Performing | Address | City/State/Zipcode | Phone Number | | Organization | | | | + + + + + | [facility] | [address] | [place] [address] | [phone] | + + + + + POC [...] | | | POC | performed at [facility];[address] | | LABORATORY | | | | [address];[place], [place] | | | | | | [address] | | | | + + + + + + + + | Specimen | + + | | + + + + + + + | Performing | Address | City/State/Zipcode | Phone Number | | Organization | | | | + + + + + | [facility] | [address] | [place] [address] | [phone] | + + + + + Fecal [...] | | LABORATORY | | | | [address];[place] [address] | | | | + + + + + + + + | Specimen | + + | Stool - Stool | | specimen (specimen) | + + + + + + + | Performing | Address | City/State/Zipcode | Phone Number | | Organization | | | | + + + + + | [facility] | [address] | [place] [address] | [phone] | + + + + + POC [...] | | | POC | performed at [facility];[address] | | LABORATORY | | | | [address];[place] | | | | | | [address] | | | | + + + + + + + + | Specimen | + + | | + + + + + + + | Performing | Address | City/State/Zipcode | Phone Number | | Organization | | | | + + + + + | [facility] | [address] | [place] [address] | [phone] | + + + + + Hemoglobin [...] [facility] | | | | performed at [facility];[address] | | LABORATORY | | | | [address];[place] | | | | | | [address] | | | | + + + + + + + + | Specimen | + + | Blood | + + + + + + + | Performing | Address | City/State/Zipcode | Phone Number | | Organization | | | | + + + + + | [facility] | [address] | [place] [address] | [phone] | + + + + + POC [...] | | | POC | performed at [facility];[address] | | LABORATORY | | | | [address];[place] | | | | | | [address] | | | | + + + + + + + + | Specimen | + + | | + + + + + + + | Performing | Address | City/State/Zipcode | Phone Number | | Organization | | | | + + + + + | [facility] | [address] | [place] [address] | [phone] | + + + + + POC Glucose (12/28/2019 7:03 AM PDT) + + + + + + | Component | Value | Ref Range | Performed | Pathologist | | | | | At | Signature | + + + + + + | Glucose, | 153 (H)Comment: Testing | 65 - 99 mg/dL | [facility] | | | POC | performed at [facility];[address] | | LABORATORY | | | | [address];[place] | | | | | | [address] | | | | + + + + + + + + | Specimen | + + | | + + + + + + + | Performing | Address | City/State/Zipcode | Phone Number | | Organization | | | | + + + + + | [facility] | [address] | [place] [address] | [phone] | + + + + + CBC [...] | | | Absolute | performed at [facility], [address] | K/uL | LABORATORY | | | | [address], | | | | | | [place] [address] | | | | + + + + + + + + | Specimen | + + | Blood | + + + + + + + | Performing | Address | City/State/Zipcode | Phone Number | | Organization | | | | + + + + + | [facility] | [address] | [place] [address] | [phone] | + + + + + Basic [...] 16 (L)Comment: GFR <60: | >60 | [facility] | | | GFR | CHRONIC [...] | | | | | | [facility]D [facility] traceable | | | | | | equation.Testing | | | | | | performed at [facility], [address] | | | | | | [facility], | | | | | | [place] [address] | | | | + + + + + + + + | Specimen | + + | Blood | + + + + + + + | Performing | Address | City/State/Zipcode | Phone Number | | Organization | | | | + + + + + | [facility] | [address] [facility] | [place] [address] | [phone] | + + + + + POC [...] | | | POC | performed at [facility];[address] | | LABORATORY | | | | [address];[place] | | | | | | [address] | | | | + + + + + + + + | Specimen | + + | | + + + + + + + | Performing | Address | City/State/Zipcode | Phone Number | | Organization | | | | + + + + + | [facility] | [address] | [place] [address] | [phone] | + + + + + POC [...] | | | POC | performed at [facility];[address] | | LABORATORY | | | | [address];[place] | | | | | | [address] | | | | + + + + + + + + | Specimen | + + | | + + + + + + + | Performing | Address | City/State/Zipcode | Phone Number | | Organization | | | | + + + + + | [facility] | [address] [facility] | [place] [address] | [phone] | + + + + + Red [...] | [facility] | | | COMMENT | [facility];[address] | | LABORATORY | | | | [address]vd;[place] [address] | | | | + + + + + + + + | Specimen | + + | | + + + + + + + | Performing | Address | City/State/Zipcode | Phone Number | | Organization | | | | + + + + + | [facility] | [address] | [place] [address] | [phone] | + + + + + Type [...] + + + | BB BAND | [id number] | | [facility] | | | | | | LABORATORY | | + + + + + + | UNIT # | [id number] | | [facility] | | | | [...] + + + | UNIT # | [id number] | | [facility] | | | | [...] | | | RESULT | performed at [facility];[address] | | LABORATORY | | | | [address];[place], [place] | | | | | | [address] | | | | + + + + + + + + | Specimen | + + | Blood | + + + + + + + | Performing | Address | City/State/Zipcode | Phone Number | | Organization | | | | + + + + + | [facility] | [address] | [place] [address] | [phone] | + + + + + POC [...] | | | POC | performed at [facility];[address] | | LABORATORY | | | | [address];[place], [place] | | | | | | [address] | | | | + + + + + + + + | Specimen | + + | | + + + + + + + | Performing | Address | City/State/Zipcode | Phone Number | | Organization | | | | + + + + + | [facility] | [address] | [place] [address] | [phone] | + + + + + CBC [...] 0.02Comment: Testing | 0.00 - 0.10 | [facility] | | | Absolute | performed at [facility], [address] | K/uL | LABORATORY | | | | [address], | | | | | | [place] [address] | | | | + + + + + + + + | Specimen | + + | | + + + + + + + | Performing | Address | City/State/Zipcode | Phone Number | | Organization | | | | + + + + + | [facility] | [address] | [place] [address] | [phone] | + + + + + Procalcitonin [...] | | | | | | at [facility];[address] [place] [address] | | | | | | [facility];[place] [address] | | | | + + + + + + + + | Specimen | + + | Blood | + + + + + + + | Performing | Address | City/State/Zipcode | Phone Number | | Organization | | | | + + + + + | [facility] | [address] | [place] [address] | [phone] | + + + + + Basic [...] (L)Comment: GFR <60: | >60 | [facility] | | | GFR | CHRONIC [...] | | | | | performed at [facility], [address] | | | | | | [facility], | | | | | | [place] [address] | | | | + + + + + + + + | Specimen | + + | Blood | + + + + + + + | Performing | Address | City/State/Zipcode | Phone Number | | Organization | | | | + + + + + | [facility] | [address] | [place] [address] | [phone] | + + + + + Vitamin D, Deficiency Screen (25-Hydroxy) (12/27/2019 5:04 AM PDT) + + + + + + | Component | Value | Ref Range | Performed | Pathologist | | | | | At | Signature | + + + + + + | Vit D, | 25.2 (L)Comment: Vitamin | 30.0 - 100.0 | [facility] | | | 25-Hydroxy | D deficiency has been | ng/mL | LABORATORY | | | | defined by the [place] | | | | | | ofMedicine [...] IOM | | | | | | ([place] [facility]). | | | | | [...] | | | | | performed at [facility], | | | | | | [address], | | | | | | [facility] [address] | | | | + + + + + + + + | Specimen | + + | Blood | + + + + + + + | Performing | Address | City/State/Zipcode | Phone Number | | Organization | | | | + + + + + | [facility] | [address] | [place] [address] | [phone] | + + + + + Potassium (12/27/2019 12:08 AM PDT) + + + + + + | Component | Value | Ref Range | Performed | Pathologist | | | | | At | Signature | + + + + + + | K | 4.0Comment: Testing | 3.5 - 4.9 | [facility] | | | | performed at [facility];[address] | mmol/L | LABORATORY | | | | [address];[place] | | | | | | [address] | | | | + + + + + + + + | Specimen | + + | Blood | + + + + + + + | Performing | Address | City/State/Zipcode | Phone Number | | Organization | | | | + + + + + | [facility] | [address] | [place] [address] | [phone] | + + + + + Magnesium (12/27/2019 12:08 AM PDT) + + + + + + | Component | Value | Ref Range | Performed | Pathologist | | | | | At | Signature | + + + + + + | Magnesium | 2.2Comment: Testing | 1.7 - 2.4 mg/dL | [facility] | | | | performed at [facility];[address] | | LABORATORY | | | | [address];[place], [place] | | | | | | [address] | | | | + + + + + + + + | Specimen | + + | Blood | + + + + + + + | Performing | Address | City/State/Zipcode | Phone Number | | Organization | | | | + + + + + | [facility] | [address] | [place] [address] | [phone] | + + + + + ECG [...] | | | POC | performed at [facility];[address] | | LABORATORY | | | | [address];[place] | | | | | | [address] | | | | + + + + + + + + | Specimen | + + | | + + + + + + + | Performing | Address | City/State/Zipcode | Phone Number | | Organization | | | | + + + + + | [facility] | [address] | [place] [address] | [phone] | + + + + + POC Glucose (12/26/2019 5:02 PM PDT) + + + + + + | Component | Value | Ref Range | Performed | Pathologist | | | | | At | Signature | + + + + + + | Glucose, | 154 (H)Comment: Testing | 65 - 99 mg/dL | [facility] | | | POC | performed at [facility];[address] | | LABORATORY | | | | [address];[place], [place] | | | | | | [address] | | | | + + + + + + + + | Specimen | + + | | + + + + + + + | Performing | Address | City/State/Zipcode | Phone Number | | Organization | | | | + + + + + | [facility] | [address] | [place] [address] | [phone] | + + + + + Complement [...] | | | COMPLEMENT | performed at [facility], | | LABORATORY | | | | [address], | | | | | | [facility] [address] | | | | + + + + + + + + | Specimen | + + | | + + + + + + + | Performing | Address | City/State/Zipcode | Phone Number | | Organization | | | | + + + + + | [facility] | [address] | [place] [address] | [phone] | + + + + + Complement C3 Ag (12/26/2019 12:33 PM PDT) + + + + + + | Component | Value | Ref Range | Performed | Pathologist | | | | | At | Signature | + + + + + + | C3 | 53 (L)Comment: Testing | 82 - 167 mg/dL | [facility] | | | COMPLEMENT | performed at [facility], | | LABORATORY | | | | [address], | | | | | | [facility] [address] | | | | + + + + + + + + | Specimen | + + | | + + + + + + + | Performing | Address | City/State/Zipcode | Phone Number | | Organization | | | | + + + + + | [facility] | [address] | [place] [address] | [phone] | + + + + + POC Glucose (12/26/2019 11:15 AM PDT) + + + + + + | Component | Value | Ref Range | Performed | Pathologist | | | | | At | Signature | + + + + + + | Glucose, | 161 (H)Comment: Testing | 65 - 99 mg/dL | [facility] | | | POC | performed at [facility];[address] | | LABORATORY | | | | [address];[place] | | | | | | [address] | | | | + + + + + + + + | Specimen | + + | | + + + + + + + | Performing | Address | City/State/Zipcode | Phone Number | | Organization | | | | + + + + + | [facility] | [address] | [place] [address] | [phone] | + + + + + POC [...] | | | POC | performed at [facility];[address] | | LABORATORY | | | | [address];[place] | | | | | | [address] | | | | + + + + + + + + | Specimen | + + | | + + + + + + + | Performing | Address | City/State/Zipcode | Phone Number | | Organization | | | | + + + + + | [facility] | [address] | [place] [address] | [phone] | + + + + + Parathyroid Hormone, Intraoperative (12/26/2019 4:25 AM PDT) + + + + + + | Component | Value | Ref Range | Performed | Pathologist | | | | | At | Signature | + + + + + + | PTH Intact | 167.0 (H)Comment: | 8.7 - 79.6 | [facility] | | | | Testing performed at | pg/mL | LABORATORY | | | | [facility];[address];[place] [address] | | | | + + + + + + + + | Specimen | + + | | + + + + + + + | Performing | Address | City/State/Zipcode | Phone Number | | Organization | | | | + + + + + | [facility] | [address] | [place] [address] | [phone] | + + + + + Renal [...] | | | | | performed at [facility], [address] | | | | | | [address], | | | | | | [place] [address] | | | | + + + + + + + + | Specimen | + + | Blood | + + + + + + + | Performing | Address | City/State/Zipcode | Phone Number | | Organization | | | | + + + + + | [facility] | [address] | [place] [address] | [phone] | + + + + + POC [...] | | | POC | performed at [facility];[address] | | LABORATORY | | | | [address];[place] | | | | | | [address] | | | | + + + + + + + + | Specimen | + + | | + + + + + + + | Performing | Address | City/State/Zipcode | Phone Number | | Organization | | | | + + + + + | [facility] | [address] | [place] [address] | [phone] | + + + + + POC Glucose (12/25/2019 5:13 PM PDT) + + + + + + | Component | Value | Ref Range | Performed | Pathologist | | | | | At | Signature | + + + + + + | Glucose, | 133 (H)Comment: Testing | 65 - 99 mg/dL | [facility] | | | POC | performed at [facility];[address] | | LABORATORY | | | | [address];[place] | | | | | | [address] | | | | + + + + + + + + | Specimen | + + | | + + + + + + + | Performing | Address | City/State/Zipcode | Phone Number | | Organization | | | | + + + + + | [facility] | [address] | [place] [address] | [phone] | + + + + + ECHO [...] | | | POC | performed at [facility];[address] | | LABORATORY | | | | [address];[place] | | | | | | [address] | | | | + + + + + + + + | Specimen | + + | | + + + + + + + | Performing | Address | City/State/Zipcode | Phone Number | | Organization | | | | + + + + + | [facility] | [address] | [place] [address] | [phone] | + + + + + POC Glucose (12/25/2019 7:56 AM PDT) + + + + + + | Component | Value | Ref Range | Performed | Pathologist | | | | | At | Signature | + + + + + + | Glucose, | 136 (H)Comment: Testing | 65 - 99 mg/dL | [facility] | | | POC | performed at [facility];[address] | | LABORATORY | | | | [address];[place] | | | | | | [address] | | | | + + + + + + + + | Specimen | + + | | + + + + + + + | Performing | Address | City/State/Zipcode | Phone Number | | Organization | | | | + + + + + | [facility] | [address] | [place] [address] | [phone] | + + + + + CK Total (12/25/2019 4:25 AM PDT) + + + + + + | Component | Value | Ref Range | Performed | Pathologist | | | | | At | Signature | + + + + + + | CK TOTAL | 104Comment: Testing | 55 - 400 U/L | [facility] | | | | performed at [facility];[address] | | LABORATORY | | | | [address];[place] | | | | | | [address] | | | | + + + + + + + + | Specimen | + + | Blood | + + + + + + + | Performing | Address | City/State/Zipcode | Phone Number | | Organization | | | | + + + + + | [facility] | [address] | [place] [address] | [phone] | + + + + + Renal [...] | | | | | | MDRD IDUT traceable | | | | | | equation.Testing | | | | | | performed at [facility], [address] | | | | | | [facility], | | | | | | [place] [address] | | | | + + + + + + + + | Specimen | + + | Blood | + + + + + + + | Performing | Address | City/State/Zipcode | Phone Number | | Organization | | | | + + + + + | [facility] | [address] | [place] [address] | [phone] | + + + + + Cytoplasmic [...] | | | | | with both NE-3 and | | | | | | [...] | | | | | performed by [facility], | | | | | | [address] [facility], | | | | | | [place] [address] | | | | + + + + + + + + | Specimen | + + | Blood | + + + + + + + | Performing | Address | City/State/Zipcode | Phone Number | | Organization | | | | + + + + + | [facility] | [address] | [place] [address] | [phone] | + + + + + Sedimentation Rate (12/25/2019 4:22 AM PDT) + + + + + + | Component | Value | Ref Range | Performed | Pathologist | | | | | At | Signature | + + + + + + | ESR | 6Comment: Testing | 0 - 20 mm/Hr | [facility] | | | | performed at [facility], [address] | | LABORATORY | | | | [address], | | | | | | [place] [address] | | | | + + + + + + + + | Specimen | + + | Blood | + + + + + + + | Performing | Address | City/State/Zipcode | Phone Number | | Organization | | | | + + + + + | [facility] | [address] | [place] [address] | [phone] | + + + + + Immunoglobulin, Free Light Chain (12/25/2019 4:22 AM PDT) + + + + + + | Component | Value | Ref Range | Performed | Pathologist | | | | | At | Signature | + + + + + + | [place] Free | 121.2 (H) | 3.3 [...] + + + + + + | [place]d | 1.25Comment: Testing | 0.26 - 1.65 | [facility] | | | a Free | performed at [facility] | | LABORATORY | | | Light Chain | [place], [address] | | | | | Ratio | [place] [address] | | | | + + + + + + + + | Specimen | + + | Blood | + + + + + + + | Performing | Address | City/State/Zipcode | Phone Number | | Organization | | | | + + + + + | [facility] | [address] | [place] [address] | [phone] | + + + + + Glomerular Basement Membrane Ab, IgG (12/25/2019 4:22 AM PDT) + + + + + + | Component | Value | Ref Range | Performed | Pathologist | | | | | At | Signature | + + + + + + | Antiglomeru | 2Comment: | 0 - 20 units | [facility] | | | lar BM Ab, [...] [place] | | | | | | [address] | | | | + + + + + + + + | Specimen | + + | Blood | + + + + + + + | Performing | Address | City/State/Zipcode | Phone Number | | Organization | | | | + + + + + | [facility] | [address] | [place] [address] | [phone] | + + + + + Hepatitis [...] Amplificationtest | | | | | | ([id number]).Testing | | | | | | performed at [facility], | | | | | | [address], | | | | | | [facility] [address] | | | | + + + + + + + + | Specimen | + + | Blood | + + + + + + + | Performing | Address | City/State/Zipcode | Phone Number | | Organization | | | | + + + + + | [facility] | [address] | [place] [address] | [phone] | + + + + + CK Total (12/25/2019 4:22 AM PDT) + + + + + + | Component | Value | Ref Range | Performed | Pathologist | | | | | At | Signature | + + + + + + | CK TOTAL | 100Comment: Testing | 55 - 400 U/L | [facility] | | | | performed at [facility];[address] | | LABORATORY | | | | [address];[place], [place] | | | | | | [address] | | | | + + + + + + + + | Specimen | + + | Blood | + + + + + + + | Performing | Address | City/State/Zipcode | Phone Number | | Organization | | | | + + + + + | [facility] | [address] | [place] [address] | [phone] | + + + + + Lactate Dehydrogenase (12/25/2019 4:22 AM PDT) + + + + + + | Component | Value | Ref Range | Performed | Pathologist | | | | | At | Signature | + + + + + + | LDH TOTAL | 154Comment: Testing | 120 - 246 U/L | [facility] | | | | performed at [facility];[address] | | LABORATORY | | | | [address];[place] | | | | | | [address] | | | | + + + + + + + + | Specimen | + + | Blood | + + + + + + + | Performing | Address | City/State/Zipcode | Phone Number | | Organization | | | | + + + + + | [facility] | [address] | [place] [address] | [phone] | + + + + + Magnesium (12/25/2019 4:22 AM PDT) + + + + + + | Component | Value | Ref Range | Performed | Pathologist | | | | | At | Signature | + + + + + + | Magnesium | 2.5 (H)Comment: Testing | 1.7 - 2.4 mg/dL | [facility] | | | | performed at [facility], [address] | | LABORATORY | | | | [address], | | | | | | [place] [address] | | | | + + + + + + + + | Specimen | + + | Blood | + + + + + + + | Performing | Address | City/State/Zipcode | Phone Number | | Organization | | | | + + + + + | [facility] | [address] | [place] [address] | [phone] | + + + + + Protein, [...] LABORATORY | | | | performed at [facility], [address] | | | | | [address], | | | | | | [place] [address] | | | | + + + + + + + + | Specimen | + + | | + + + + + + + | Performing | Address | City/State/Zipcode | Phone Number | | Organization | | | | + + + + + | [facility] | [address] | [place] [address] | [phone] | + + + + + Creatinine, [...] | | | urine | performed at [facility], [address] | | | | | | [address] [facility] [address], | | | | | | [place] [address] | | | | + + + + + + + + | Specimen | + + | | + + + + + + + | Performing | Address | City/State/Zipcode | Phone Number | | Organization | | | | + + + + + | [facility] | [address] [facility] | [place] [address] | [phone] | + + + + + Protein/Creatinine Ratio, Urine (12/25/2019 12:01 AM PDT) + + + + + + | Component | Value | Ref Range | Performed | Pathologist | | | | | At | Signature | + + + + + + | PRO/CREA | 0.942Comment: Testing | | [facility] | | | RATIO,URINE | performed at [facility], [address] | | LABORATORY | | | | [address], | | | | | | [place] [address] | | | | + + + + + + + + | Specimen | + + | Urine | + + + + + + + | Performing | Address | City/State/Zipcode | Phone Number | | Organization | | | | + + + + + | [facility] | [address] | [place] [address] | [phone] | + + + + + POC Glucose (12/24/2019 8:55 PM PDT) + + + + + + | Component | Value | Ref Range | Performed | Pathologist | | | | | At | Signature | + + + + + + | Glucose, | 149 (H)Comment: Testing | 65 - 99 mg/dL | [facility] | | | POC | performed at [facility];[address] | | LABORATORY | | | | [address];[place] | | | | | | [address] | | | | + + + + + + + + | Specimen | + + | | + + + + + + + | Performing | Address | City/State/Zipcode | Phone Number | | Organization | | | | + + + + + | [facility] | [address] | [place] [address] | [phone] | + + + + + POC Glucose (12/24/2019 5:14 PM PDT) + + + + + + | Component | Value | Ref Range | Performed | Pathologist | | | | | At | Signature | + + + + + + | Glucose, | 136 (H)Comment: Testing | 65 - 99 mg/dL | [facility] | | | POC | performed at [facility];[address] | | LABORATORY | | | | [address];[place], [place] | | | | | | [address] | | | | + + + + + + + + | Specimen | + + | | + + + + + + + | Performing | Address | City/State/Zipcode | Phone Number | | Organization | | | | + + + + + | [facility] | [address] | [place] [address] | [phone] | + + + + + ECG [...] Note | + + | Kobe, Leonides Results In - 12/24/2019 2:35 PM PDT [...] | | | Arterial, | performed at [facility];[address] | | LABORATORY | | | POC | [address];[place] | | | | | | [address] | | | | + + + + + + + + | Specimen | + + | | + + + + + + + | Performing | Address | City/State/Zipcode | Phone Number | | Organization | | | | + + + + + | [facility] | [address] | [place] [address] | [phone] | + + + + + Coronavirus (COVID-19) TIA (12/24/2019 1:10 PM PDT) + + + + + + | Component | Value | Ref Range | Performed | Pathologist | | | | | At | Signature | + + + + + + | SARS-CoV-2, | NEGATIVEComment: Testing | NEG | [facility] | | | NAAT | performed at [facility];[address] | | LABORATORY | | | (COVID-19) | [address];[place], [place] | | | | | | [address] | | | | + + + + + + + + | Specimen | + + | Tissue - Entire | | nasopharynx (body | | structure) | + + + + + + + | Performing | Address | City/State/Zipcode | Phone Number | | Organization | | | | + + + + + | [facility] | [address] | [place] [address] | [phone] | + + + + + Culture, [...] | LABORATORY | | | | [address]vd;[place] [address] | | | | + + + + + + | RESULT | NO GROWTH 6 DAYS | | [facility] | | | | | | LABORATORY | | + + + + + + | RESULT | Testing performed at | | [facility] | | | | [facility], [address] | | LABORATORY | | | | [place], [place] | | | | | | [address]Fdxiajc: Testing | | | | | | performed at [facility], [address] | | | | | | [address], [place], [place] | | | | | | [address] | | | | + + + + + + + + | Specimen | + + | Blood - Peripheral | | blood specimen | | (specimen) | + + + + + + + | Performing | Address | City/State/Zipcode | Phone Number | | Organization | | | | + + + + + | [facility] | [address] | [place] [address] | [phone] | + + + + + Culture, [...] | LABORATORY | | | | [address];[place] [address] | | | | + + + + + + | RESULT | NO GROWTH 6 DAYS | | [facility] | | | | | | LABORATORY | | + + + + + + | RESULT | Testing performed at | | [facility] | | | | [facility], [address] [facility] | | LABORATORY | | | | [address] [place], [place] | | | | | | [address]Kvnrume: Testing | | | | | | performed at [facility], [address] | | | | | | [facility] [place], [place] | | | | | | [address] | | | | + + + [...] [facility] | [address] | [place] [address] | [phone] | + + + + + Urinalysis [...] - 1.030 | [facility] | | | [place], | | | LABORATORY | | | [...] | 1+ (A)Comment: Testing | NONE | [facility] | | | Urine | performed at [facility], [address] | | LABORATORY | | | | [address], | | | | | | [place] [address] | | | | + + + [...] + + + + + | [facility] | [address] | [place] [address] | [phone] | + + + + + Sodium, [...] | | | urine | performed at [facility], [address] | | | | | | [address], | | | | | | [place] [address] | | | | + + + [...] + + + + + | [facility] | [address] | [place] [address] | [phone] | + + + + + Creatinine, Urine, Random (12/24/2019 12:45 PM PDT) + + + + + + | Component | Value | Ref Range | Performed | Pathologist | | | | | At | Signature | + + + + + + | Creatinine, | 70.0Comment: NO NORMAL | mg/dL | [facility] | | | random | RANGE ESTABLISHEDTesting | | LABORATORY | | | urine | performed at [facility], [address] | | | | | | [address], | | | | | | [place] [address] | | | | + + + [...] + + + + + | [facility] | [address] | [place] [address] | [phone] | + + + + + Lactic Acid (12/24/2019 12:27 PM PDT) + + + + + + | Component | Value | Ref Range | Performed | Pathologist | | | | | At | Signature | + + + + + + | Lactate, | 1.6Comment: Testing | 0.4 - 2.0 | [facility] | | | Serum | performed at [facility];[address] | mmol/L | LABORATORY | | | | [address] [facility];[place], [place] | | | | | | [address] | | | | + + + + + + + + | Specimen | + + | Blood | + + + + + + + | Performing | Address | City/State/Zipcode | Phone Number | | Organization | | | | + + + + + | [facility] | [address] | [place] [address] | [phone] | + + + + + Procalcitonin (12/24/2019 12:27 PM PDT) + + + + + + | Component | Value | Ref Range | Performed | Pathologist | | | | | At | Signature | + + + + + + | PROCALCITON | 0.69 (H)Comment: | <0.5 ng/mL | [facility] | | | IN | INTERPRETIVE | [...] | | | | | | at [facility];[address] [place] [address] | | | | | | [facility];[place] [address] | | | | + + + + + + + + | Specimen | + + | Blood | + + + + + + + | Performing | Address | City/State/Zipcode | Phone Number | | Organization | | | | + + + + + | [facility] | [address] | [place] [address] | [phone] | + + + + + POC Glucose (12/24/2019 12:25 PM PDT) + + + + + + | Component | Value | Ref Range | Performed | Pathologist | | | | | At | Signature | + + + + + + | Glucose, | 143 (H)Comment: Testing | 65 - 99 mg/dL | [facility] | | | POC | performed at [facility];[address] | | LABORATORY | | | | [address];[place] | | | | | | [address] | | | | + + + + + + + + | Specimen | + + | | + + + + + + + | Performing | Address | City/State/Zipcode | Phone Number | | Organization | | | | + + + + + | [facility] | [address] | [place] [address] | [phone] | + + + + + POC [...] | | | POC | performed at [facility];[address] | | LABORATORY | | | | [address];[place], [place] | | | | | | [address] | | | | + + + + + + + + | Specimen | + + | | + + + + + + + | Performing | Address | City/State/Zipcode | Phone Number | | Organization | | | | + + + + + | [facility] | [address] | [place] [address] | [phone] | + + + + + CBC [...] LABORATORY | | | | performed at [facility];[address] | | | | | | [address];[place] | | | | | | [address] | | | | + + + + + + + + | Specimen | + + | Blood | + + + + + + + | Performing | Address | City/State/Zipcode | Phone Number | | Organization | | | | + + + + + | [facility] | [address] | [place] [address] | [phone] | + + + + + Basic [...] | | | | | performed at [facility], [address] | | | | | | [facility], | | | | | | [place] [address] | | | | + + + + + + + + | Specimen | + + | Blood | + + + + + + + | Performing | Address | City/State/Zipcode | Phone Number | | Organization | | | | + + + + + | [facility] | [address] | [place] [address] | [phone] | + + + + + POC Glucose (12/23/2019 8:35 PM PDT) + + + + + + | Component | Value | Ref Range | Performed | Pathologist | | | | | At | Signature | + + + + + + | Glucose, | 135 (H)Comment: Testing | 65 - 99 mg/dL | [facility] | | | POC | performed at [facility];[address] | | LABORATORY | | | | [address];[place] | | | | | | [address] | | | | + + + + + + + + | Specimen | + + | | + + + + + + + | Performing | Address | City/State/Zipcode | Phone Number | | Organization | | | | + + + + + | [facility] | [address] | [place] [address] | [phone] | + + + + + POC Glucose (12/23/2019 4:35 PM PDT) + + + + + + | Component | Value | Ref Range | Performed | Pathologist | | | | | At | Signature | + + + + + + | Glucose, | 129 (H)Comment: Testing | 65 - 99 mg/dL | [facility] | | | POC | performed at [facility];[address] | | LABORATORY | | | | [address];[place] | | | | | | [address] | | | | + + + + + + + + | Specimen | + + | | + + + + + + + | Performing | Address | City/State/Zipcode | Phone Number | | Organization | | | | + + + + + | [facility] | [address] | [place] [address] | [phone] | + + + + + POC Glucose (12/23/2019 2:05 PM PDT) + + + + + + | Component | Value | Ref Range | Performed | Pathologist | | | | | At | Signature | + + + + + + | Glucose, | 158 (H)Comment: Testing | 65 - 99 mg/dL | [facility] | | | POC | performed at [facility];[address] | | LABORATORY | | | | [address];[place], [place] | | | | | | [address] | | | | + + + + + + + + | Specimen | + + | | + + + + + + + | Performing | Address | City/State/Zipcode | Phone Number | | Organization | | | | + + + + + | [facility] | [address] | [place] [address] | [phone] | + + + + + POC [...] | | | POC | performed at [facility];[address] | | LABORATORY | | | | [address];[place] | | | | | | [address] | | | | + + + + + + + + | Specimen | + + | | + + + + + + + | Performing | Address | City/State/Zipcode | Phone Number | | Organization | | | | + + + + + | [facility] | [address] | [place] [address] | [phone] | + + + + + Basic [...] 22 (L)Comment: GFR <60: | >60 | [facility] | | | GFR | CHRONIC [...] | | | | | | MDRD [facility] traceable | | | | | | equation.Testing | | | | | | performed at [facility];[address] | | | | | | [address] [facility];[place], [place] | | | | | | [address] | | | | + + + + + + + + | Specimen | + + | Blood | + + + + + + + | Performing | Address | City/State/Zipcode | Phone Number | | Organization | | | | + + + + + | [facility] | [address] | [place] [address] | [phone] | + + + + + Phosphorus (12/23/2019 4:04 AM PDT) + + + + + + | Component | Value | Ref Range | Performed | Pathologist | | | | | At | Signature | + + + + + + | Phosphorus | 4.6Comment: Testing | 2.3 - 4.8 mg/dL | [facility] | | | | performed at [facility];[address] | | LABORATORY | | | | [address];[place] | | | | | | [address] | | | | + + + + + + + + | Specimen | + + | Blood | + + + + + + + | Performing | Address | City/State/Zipcode | Phone Number | | Organization | | | | + + + + + | [facility] | [address] | [place] [address] | [phone] | + + + + + Magnesium (12/23/2019 4:04 AM PDT) + + + + + + | Component | Value | Ref Range | Performed | Pathologist | | | | | At | Signature | + + + + + + | Magnesium | 2.1Comment: Testing | 1.7 - 2.4 mg/dL | [facility] | | | | performed at [facility];[address] | | LABORATORY | | | | [address];[place] | | | | | | [address] | | | | + + + + + + + + | Specimen | + + | Blood | + + + + + + + | Performing | Address | City/State/Zipcode | Phone Number | | Organization | | | | + + + + + | [facility] | [address] | [place] [address] | [phone] | + + + + + CBC [...] LABORATORY | | | | performed at [facility];[address] | | | | | | [address];[place], [place] | | | | | | [address] | | | | + + + + + + + + | Specimen | + + | Blood | + + + + + + + | Performing | Address | City/State/Zipcode | Phone Number | | Organization | | | | + + + + + | [facility] | [address] | [place] [address] | [phone] | + + + + + Hemoglobin (12/22/2019 9:37 PM PDT) + + + + + + | Component | Value | Ref Range | Performed | Pathologist | | | | | At | Signature | + + + + + + | Hemoglobin | 9.1 (L)Comment: Testing | 13.2 - 17.0 | [facility] | | | | performed at [facility];[address] | g/dL | LABORATORY | | | | [address];[place] | | | | | | [address] | | | | + + + + + + + + | Specimen | + + | Blood | + + + + + + + | Performing | Address | City/State/Zipcode | Phone Number | | Organization | | | | + + + + + | [facility] | [address] | [place] [address] | [phone] | + + + + + Hematocrit (12/22/2019 9:37 PM PDT) + + + + + + | Component | Value | Ref Range | Performed | Pathologist | | | | | At | Signature | + + + + + + | Hematocrit | 27.4 (L)Comment: Testing | 39.0 - 50.0 % | [facility] | | | | performed at [facility];[address] | | LABORATORY | | | | [address];[place] | | | | | | [address] | | | | + + + + + + + + | Specimen | + + | Blood | + + + + + + + | Performing | Address | City/State/Zipcode | Phone Number | | Organization | | | | + + + + + | [facility] | [address] | [place] [address] | [phone] | + + + + + POC [...] | | | POC | performed at [facility];[address] | | LABORATORY | | | | [address];[place], [place] | | | | | | [address] | | | | + + + + + + + + | Specimen | + + | | + + + + + + + | Performing | Address | City/State/Zipcode | Phone Number | | Organization | | | | + + + + + | [facility] | [address] | [place] [address] | [phone] | + + + + + POC [...] | | | POC | performed at [facility];[address] | | LABORATORY | | | | [address];[place] | | | | | | [address] | | | | + + + + + + + + | Specimen | + + | | + + + + + + + | Performing | Address | City/State/Zipcode | Phone Number | | Organization | | | | + + + + + | [facility] | [address] | [place] [address] | [phone] | + + + + + Red [...] | [facility] | | | COMMENT | [facility];[address] | | LABORATORY | | | | [address];[place] [address] | | | | + + + + + + + + | Specimen | + + | | + + + + + + + | Performing | Address | City/State/Zipcode | Phone Number | | Organization | | | | + + + + + | [facility] | [address] | [place] [address] | [phone] | + + + + + POC Glucose (12/22/2019 10:38 AM PDT) + + + + + + | Component | Value | Ref Range | Performed | Pathologist | | | | | At | Signature | + + + + + + | Glucose, | 161 (H)Comment: Testing | 65 - 99 mg/dL | [facility] | | | POC | performed at [facility] [place];[address] | | LABORATORY | | | | Rosalia Mccain;[place] | | | | | | [address] | | | | + + + + + + + + | Specimen | + + | | + + + + + + + | Performing | Address | City/State/Zipcode | Phone Number | | Organization | | | | + + + + + | [facility] | [address] | [place] [address] | [phone] | + + + + + [place] [...] distally. Dynamic compression screw extending through the btesy | | into the right femoral head, [...] | | | POC | performed at [facility];888 | g/dL | LABORATORY | | | | Rosalia Mccain;[place], [place] | | | | | | [address] | | | | + + + + + + + + | Specimen | + + | | + + + + + + + | Performing | Address | City/State/Zipcode | Phone Number | | Organization | | | | + + + + + | [facility] | [address] | [place] [address] | [phone] | + + + + + POC ISELLA, CG8, Arterial (12/22/2019 9:23 AM PDT) + + + + + + | Component | Value | Ref Range | Performed | Pathologist | | | | | At | Signature | + + + + + + | pH, | 7.314 (L) | 7.350 - 7.450 | [facility] | | | Arterial, | | [...] | | | POC | performed at [facility];888 | g/dL | LABORATORY | | | | Rosalia Mccain;[place] | | | | | | [address] | | | | + + + + + + + + | Specimen | + + | | + + + + + + + | Performing | Address | City/State/Zipcode | Phone Number | | Organization | | | | + + + + + | [facility] | [address] | [place] [address] | [phone] | + + + + + POC HAVEN [email or web address], Arterial (12/22/2019 8:47 AM PDT) + + [...] | | | POC | performed at [facility];888 | g/dL | LABORATORY | | | | Rosalia Mccain;[place], [place] | | | | | | [address] | | | | + + + + + + + + | Specimen | + + | | + + + + + + + | Performing | Address | City/State/Zipcode | Phone Number | | Organization | | | | + + + + + | [facility] | [address] | [place] [address] | [phone] | + + + + + NATHANAEL THURSTON Venous (12/22/2019 8:03 AM PDT) + + [...] | | | POC | performed at [facility];[address] | g/dL | LABORATORY | | | [address];[place] | | | | | | [address] | | | | + + + + + + + + | Specimen | + + | | + + + + + + + | Performing | Address | City/State/Zipcode | Phone Number | | Organization | | | | + + + + + | [facility] | [address] | [place] [address] | [phone] | + + + + + Type [...] + + + | BB BAND | [id number] | | [facility] | | | | | | LABORATORY | | + + + + + + | UNIT # | [id number] | | [facility] | | | | [...] | | | RESULT | performed at [facility];[address] | | LABORATORY | | | | [address];[place] | | | | | | [address] | | | | + + + + + + | UNIT # | [id number] | | [facility] | | | | [...] + + + + + | [facility] | [address] | [place] [address] | [phone] | + + + + + POC Glucose (12/22/2019 5:35 AM PDT) + + + + + + | Component | Value | Ref Range | Performed | Pathologist | | | | | At | Signature | + + + + + + | Glucose, | 155 (H)Comment: Testing | 65 - 99 mg/dL | [facility] | | | POC | performed at [facility];[address] | | LABORATORY | | | | [address];[place] | | | | | | [address] | | | | + + + + + + + + | Specimen | + + | | + + + + + + + | Performing | Address | City/State/Zipcode | Phone Number | | Organization | | | | + + + + + | [facility] | [address] | [place] [address] | [phone] | + + + + + Protime INR (12/22/2019 5:26 AM PDT) + + + + + + | Component | Value | Ref Range | Performed | Pathologist | | | | | At | Signature | + + + + + + | INR | 1.2Comment: REFERENCE | | [facility] | | | | RANGE:0.9 - [...] | | | | | performed at [facility];[address] | | | | | [address];[place], [place] | | | | | | [address] | | | | + + + + + + + + | Specimen | + + | Blood | + + + + + + + | Performing | Address | City/State/Zipcode | Phone Number | | Organization | | | | + + + + + | [facility] | [address] | [place] [address] | [phone] | + + + + + CBC [...] | | | Absolute | performed at [facility], [address] | K/uL | LABORATORY | | | | [address], | | | | | | [place] [address] | | | | + + + + + + + + | Specimen | + + | Blood | + + + + + + + | Performing | Address | City/State/Zipcode | Phone Number | | Organization | | | | + + + + + | [facility] | [address] | [place] [address] | [phone] | + + + + + Magnesium [...] | | | | | [place] [address] | | | | + + + + + + + + | Specimen | + + | Blood | + + + + + + + | Performing | Address | City/State/Zipcode | Phone Number | | Organization | | | | + + + + + | [facility] | [address] | [place] [address] | [phone] | + + + + + Basic [...] | | | | | performed at [facility], [address] | | | | | | [facility], | | | | | | [place] [address] | | | | + + + + + + + + | Specimen | + + | Blood | + + + + + + + | Performing | Address | City/State/Zipcode | Phone Number | | Organization | | | | + + + + + | [facility] | [address] | [place] [address] | [phone] | + + + + + POC [...] | | | POC | performed at [facility];[address] | | LABORATORY | | | | [address];[place], [place] | | | | | | [address] | | | | + + + + + + + + | Specimen | + + | | + + + + + + + | Performing | Address | City/State/Zipcode | Phone Number | | Organization | | | | + + + + + | [facility] | [address] | [place] [address] | [phone] | + + + + + POC Glucose (12/21/2019 9:11 PM PDT) + + + + + + | Component | Value | Ref Range | Performed | Pathologist | | | | | At | Signature | + + + + + + | Glucose, | 182 (H)Comment: Testing | 65 - 99 mg/dL | [facility] | | | POC | performed at [facility];[address] | | LABORATORY | | | | [address];[place] | | | | | | [address] | | | | + + + + + + + + | Specimen | + + | | + + + + + + + | Performing | Address | City/State/Zipcode | Phone Number | | Organization | | | | + + + + + | [facility] | [address] | [place] [address] | [phone] | + + + + + documented in this encounter Visit Diagnoses + + | Diagnosis | + + | Acute GI bleeding Hemorrhage of gastrointestinal tract, unspecified | + + | Esophagitis - [...] | | | | | | | 7535-7892 Use NIGHT DOSE for | | | | | | | doses scheduled: HS, | | | | | | | Nighttime 2844-3003 If the BG is | | | [...]
--- OUTSIDE RECORDS SUMMARY | ~2020-03-21 | XMS | Encounter Summary ---
Demographics + + + | Address | [address] | | | [place] [address] | + + + | Home Phone [...] [place] | | | | | [address] | | + + + + + | Deanna Lawson | ECON | Unknown | | + + + + + Care Team Providers + +------+ + | Care Typesetter Apprentice Name | Role | Phone | + [...] Provider Unknown | | | | | [place], [place] | | | | | | [address] | (Fax) | | | | | [phone] | | | +--------+ + + + [...] [address] | | | | | | [place] [address] | | | | | | [phone] | | | | | | | | +--------+ + + + + | 03/24/ | Hospital | | Anna Edouard, | Esophagitis | | 2019 | Encounter | | MD [address] | | | | | | [place] [address] | | | | | | [phone] | | | | | | | | +--------+ + + + + | 03/24/ | Surgery | | Anna Edouard | EGD | | 2019 | | | [address] | | | | | | [place] [address] | | | | | | [phone] | | | | | | | | +--------+ + + + + | 03/31/ | Office | Orthopedic Surgery | Melquiades Baez | | | 2019 | Visit | | [address] | | | | | | [place], | | | | | | [place] [address] | | | | | | [phone] | | | | | | | | +--------+ + + + + | 04/21/ | Office | Nephrology | Isiah Jade MD | | | 2019 | Visit | | [address] [facility] | | | | | | [address] [place] | | | | | | [address] | | | | | | | | +--------+ + + + + | 05/07/ | Office | Cardiology | Charlee Oswald | | | 2019 | Visit | | [address] | | | | | | [address] | | | | | | [place] [address] | | | | | | [phone] | | | | | | | [...]
--- OUTSIDE RECORDS SUMMARY | ~2020-03-21 | XMS | Encounter Summary ---
Demographics + + + | Address | [address] | | | [place] [address] | + + + | Home Phone | | + + + | Preferred Language | Unknown | + + + | Marital Status | | + + + | Zoroastrianism Affiliation | 1001 | + + + | Race | Unknown | + + + | Ethnic Group | Unknown | + + + Author + + + | Author | [facility] | | | and [place] | + + + | Organization | [facility] | | [...] [place] | | | | | [address] | | + + + + + | Deanna Lawson | ECON | Unknown | | + + + + + Care Team Providers + +------+ + | Care Activity Leader Name | Role | Phone | + +------+ + PCP | Unavailable | + +------+ + Encounter Details +--------+ + + + + | Date | Type | Department | Care Team | Description | +--------+ + + + + | 07/28/ | Hospital | [facility] | Robe Prasad | | | 2009 - | Encounter | [facility] | MD Brendan [address] | | | | | CARE FLOOR [address] | [address] [place] [address] | | | 07/31/ | | [address] | [place] [address] | | | 2009 | | [place], [place] | [phone] | | | | | [address] | | | | | | [phone] | | | +--------+ + + + [...] | | | | | [place] [address] | | | | | | [phone] | | | | | | | | +--------+ + + + + | 03/24/ | Hospital | | Anna Edouard, | Esophagitis | | 2019 | Encounter | | MD [address] | | | | | | [place] [address] | | | | | | [phone] | | | | | | | | +--------+ + + + + | 03/24/ | Surgery | | Anna Edouard | EGD | 2019 | | | [address] | | | | | | [place] [address] | | | | | | [phone] | | | | | | | | +--------+ + + + + | 03/31/ | Office | Orthopedic Surgery | Melquiades Baez | | | 2019 | Visit | | DO [address] | | | | | | [place], | | | | | | [place] [address] | | | | | | [phone] | | | | | | | | +--------+ + + + + | 04/21/ | Office | Nephrology | Isiah Jade MD | | | 2019 | Visit | | [address] | | | | | | [address] [place] | | | | | | [address] | | | | | | | | +--------+ + + + + | 05/07/ | Office | Cardiology | Charlee Oswald | | | 2019 | Visit | | [address] | | | | | | [place] | | | | | | [place] [address] | | | | | | [phone] | | | | | | | [...] permanent | | | pacemaker implantation. SURGEON oTdd Harden DO ESTIMATED | | | BLOOD [...] | | | The pacemaker is a [employer] [employer] Altrua 60, model S601. Serial | | | number is [id number]. The electrode is a Guidant Dextrus electrode model | | | number 4136, length 50 cm. Serial number is [id number]. PACING AND | | | SENSING PARAMETERS [...] DT: | | | 08/11/2010 07:18 A [facility]//[id number]/ Read by TODD HARDEN DO | | [...] DATA | | The pacemaker is a [employer] [employer] Altrua 60, model S601. Serial | | number is [id number]. | | The electrode is a Guidant Dextrus electrode model number 4136, length | | 50 cm. Serial number is [id number]. | | | | PACING AND SENSING [...] | P | | A | | NIDA/arline/[id number]/ | | | | Read by | | TODD HARDEN DO 08/10/2010 09:46 P | | | | | + + documented in this encounter Visit Diagnoses Not on filedocumented in this encounter"
--- OUTSIDE RECORDS SUMMARY | ~2020-03-21 | XMS | Encounter Summary ---
Demographics + + + | Address | [address] | | | [place] [address] | + + + | Home Phone [...] [place] | | | | | [address] | | + + + + + | Deanna Lawson | ECON | Unknown | | + + + + + Care Team Providers + +------+ + | Care Bobbin Marker Name | Role | Phone | + [...] | Chronic kidney | | | | [place], [place] | [phone] | disease, stage III | | | | [address] | | (moderate) ([facility]); | | | | [phone] | | Chronic diastolic | | | | | | heart failure ([facility]) | +--------+ + + + + [...] [address] | | | | | | [place] [address] | | | | | | [phone] | | | | | | | | +--------+ + + + + | 03/24/ | Hospital | | Anna Edouard, | Esophagitis | | 2020 | Encounter | | MD [address] | | | | | | [place] [address] | | | | | | [phone] | | | | | | | | +--------+ + + + + | 03/24/ | Surgery | | Anna Edouard, | EGD | | 2019 | | | MD [address] | | | | | | [place] [address] | | | | | | [phone] | | | | | | | | +--------+ + + + + | 03/31/ | Office | Orthopedic Surgery | Melquiades Baez | | | 2019 | Visit | | [address] | | | | | | [place], | | | | | | [place] [address] | | | | | | [phone] | | | | | | | | +--------+ + + + + | 04/21/ | Office | Nephrology | Isiah Jade MD | | | 2019 | Visit | | [address] | | | | | | [address] [place] | | | | | | [address] | | | | | | | | +--------+ + + + + | 05/07/ | Office | Cardiology | Charlee Oswald | | | 2019 | Visit | | [address] | | | | | | [address] | | | | | | [place] [address] | | | | | | [phone] | | | | | | | [...] | | | | | | (moderate) ([facility]) | | + +------+--------+ + + | CBC with | Lab | Routin | Chronic diastolic | Expected: | | Differential | | e | heart failure ([facility]) | 12/27/2018, Expires: | | | | | Essential (primary) | 12/27/2019 | | | | | hypertension | | | | | | Chronic kidney | | | | | | disease, stage III | | | | | | (moderate) ([facility]) | | + +------+--------+ + + | Protein/Creatinine | Lab | Routin | Chronic diastolic | Expected: | | Ratio, Urine | | e | heart failure ([facility]) | 12/27/2018, Expires: | | | | | Essential (primary) | 12/27/2019 | | | | | hypertension | | | | | | Chronic kidney | | | | | | disease, stage III | | | | | | (moderate) ([facility]) | | + +------+--------+ + + | Urinalysis with | Lab | Routin | Chronic diastolic | Expected: | | Microscopic if | | e | heart failure ([facility]) | 12/27/2018, Expires: | | Indicated | | | Essential (primary) | 12/27/2019 | | | | | hypertension | | | | | | Chronic kidney | | | | | | disease, stage III | | | | | | (moderate) ([facility]) | | + +------+--------+ + + | Uric Acid | Lab | Routin | Chronic diastolic | Expected: | | | | e | heart failure ([facility]) | 12/27/2018, Expires: | | | | | Essential (primary) | 12/27/2019 | | | | | hypertension | | | | | | Chronic kidney | | | | | | disease, stage III | | | | | | (moderate) ([facility]) | | + +------+--------+ + + | Renal Function Panel | Lab | Routin | Chronic kidney | Expected: | | | | e | disease, stage III | 03/21/2019, Expires: | | | | | (moderate) ([facility]) | 08/19/2020 | + +------+--------+ + + | CBC with | Lab | Routin | Chronic kidney | Expected: | | Differential | | e | disease, stage III | 03/21/2019, Expires: | | | | | (moderate) ([facility]) | 08/19/2020 | + +------+--------+ + + | Magnesium | Lab | Routin | Chronic kidney | Expected: | | | | e | disease, stage III | 03/21/2019, Expires: | | | | | (moderate) ([facility]) | 08/19/2020 | + +------+--------+ + + | Uric Acid | Lab | Routin | Chronic kidney | Expected: | | | | e | disease, stage III | 03/21/2019, Expires: | | | | | (moderate) ([facility]) | 08/19/2020 | + +------+--------+ + + | Parathyroid Hormone, | Lab | Routin | Chronic kidney | Expected: | | Intact | | e | disease, stage III | 03/21/2019, Expires: | | | | | (moderate) ([facility]) | 08/19/2020 | + +------+--------+ + [...]
--- OUTSIDE RECORDS SUMMARY | ~2020-03-21 | XMS | Encounter Summary ---
Demographics + + + | Address | [address] | | | [place] [address] | + + + | Home Phone [...] [place] | | | | | [address] | | + + + + + | Deanna Lawson | ECON | Unknown | | + + + + + Care Team Providers + +------+ + | Care Watch Crystal Grinder Name | Role | Phone | [...] + + | 01/02/ | Telephone | [facility] | Isiah Jade MD | Other (Hospital F/ | | 2019 | | NEPHROLOGY [facility] | [address] [place] | ) | | | | [address] [place] | [address] [facility], [place] | | | | | 160 [place], [place] | [id number] | | | | | [address] | | | | | | [phone] | | | +--------+ + + + [...] - 01/06/2020 3:09 PM [facility] [place] to schedule patients F/U for February 04 @ 4:00 informed her th at patient will need labs completed before appointments. She provided me with fax number to send orders [phone].Electronically signed by Kita Miranda at 0 01/06/2020 [...] | | | | | [place] [address] | | | | | | [phone] | | | | | | | | +--------+ + + + + | 03/24/ | Hospital | | Anna Edouard, | Esophagitis | | 2020 | Encounter | | MD [address] | | | | | | [place] [address] | | | | | | [phone] | | | | | | | | +--------+ + + + + | 03/24/ | Surgery | | Anna Edouard, | EGD | | 2020 | | | MD [address] | | | | | | [place] [address] | | | | | | [phone] | | | | | | | | +--------+ + + + + | 03/31/ | Office | Orthopedic Surgery | Melquiades Baez | | | 2019 | Visit | | DO [address] | | | | | | [place], | | | | | | [place] [address] | | | | | | [phone] | | | | | | | | +--------+ + + + + | 04/21/ | Office | Nephrology | Isiah Jade MD | | | 2019 | Visit | | [address] | | | | | | [address] [place] | | | | | | [address] | | | | | | | | +--------+ + + + + | 05/07/ | Office | Cardiology | Charlee Oswald | | | 2019 | Visit | | [address] | | | | | | [place] | | | | | | [place] [address] | | | | | | [phone] | | | | | | | | +--------+ + + + + documented as of this encounter Visit Diagnoses Not on filedocumented in this encounter"
--- OUTSIDE RECORDS SUMMARY | ~2020-03-21 | XMS | Encounter Summary ---
Demographics + + + | Address | [address] | | | [place] [address] | + + + | Home Phone | | + + + | Preferred Language | Unknown | + + + | Marital Status | | + + + | Buddhist Affiliation | 1001 | + + + [...] [place] | | | | | [address] | | + + + + + | Deanna Lawson | ECON | Unknown | | + + + + + Care Team Providers + +------+ + | Care Extract Operator Name | Role | Phone | [...] Provider Unknown | | | | | [place], [place] | [phone] | | | | | [address] | | | | | | [phone] | | | +--------+ + + + [...] [address] | | | | | | [place] [address] | | | | | | [phone] | | | | | | | | +--------+ + + + + | 03/24/ | Hospital | | Anna Edouard, | Esophagitis | | 2019 | Encounter | | MD [address] | | | | | | [place] [address] | | | | | | [phone] | | | | | | | | +--------+ + + + + | 03/24/ | Surgery | | Anna Edouard | EGD | | 2019 | | | [address] | | | | | | [place] [address] | | | | | | [phone] | | | | | | | | +--------+ + + + + | 03/31/ | Office | Orthopedic Surgery | Melquiades Baez | | | 2019 | Visit | | DO [address] | | | | | | [place], | | | | | | [place] [address] | | | | | | [phone] | | | | | | | | +--------+ + + + + | 04/21/ | Office | Nephrology | Isiah Jade MD | | | 2019 | Visit | | [address] [facility] | | | | | | [address] [place] | | | | | | [address] | | | | | | | | +--------+ + + + + | 05/07/ | Office | Cardiology | Charlee Owsald | | | 2019 | Visit | | [address] | | | | | | [address] [address] | | | | | | [place] [address] | | | | | | [phone] | | | | | | | [...]
--- OUTSIDE RECORDS SUMMARY | ~2020-03-21 | XMS | Encounter Summary ---
Demographics + + + | Address | [address] | | | [place] [address] | + + + | Home Phone [...] [place] | | | | | [address] | | + + + + + | Deanna Lawson | ECON | Unknown | | + + + + + Care Team Providers + +------+ + | Care Retail And Restaurant Associate Name | Role | Phone | + +------+ + | Barbara Gilman MD | PCP | | + +------+ + Encounter Details +--------+ + + + + | Date | Type | Department | Care Team | Description | +--------+ + + + + | 01/11/ | Orders Only | [facility] | Tristan Rajput, | | | 2018 | | NEPHROLOGY [place] | STRAP MACHINE OPERATOR [address] | | | | | [address] [facility] | [place] | | | | | [place] | [place] | | | | | [address] | [address] | | | | | [phone] | [phone] | | | | | | | [...] [address] | | | | | | [place] [address] | | | | | | [phone] | | | | | | | | +--------+ + + + + | 03/24/ | Hospital | | Anna Edouard, | Esophagitis | | 2019 | Encounter | | MD [address] | | | | | | [place] [address] | | | | | | [phone] | | | | | | | | +--------+ + + + + | 03/24/ | Surgery | | Anna Edouard | GRUPOD | | 2019 | | | MD [address] | | | | | | [place] [address] | | | | | | [phone] | | | | | | | | +--------+ + + + + | 03/31/ | Office | Orthopedic Surgery | Melquiades Baez | | | 2019 | Visit | | DO [address] | | | | | | [place], | | | | | | [place] [address] | | | | | | [phone] | | | | | | | | +--------+ + + + + | 04/21/ | Office | Nephrology | Isiah Jade MD | | 2019 | Visit | | [address] [facility] | | | | | | [address] [place], [place] | | | | | | [address] | | | | | | | | +--------+ + + + + | 05/07/ | Office | Cardiology | Darek Charlee | | | 2019 | Visit | | [address] | | | | | | [place] | | | | | | [place] [address] | | | | | | [phone] | | | | | | | [...]
--- OUTSIDE RECORDS SUMMARY | ~2020-03-21 | XMS | Encounter Summary ---
Demographics + + + | Address | [address] | | | [place] [address] | + + + | Home Phone [...] [place] | | | | | [address] | | + + + + + | Deanna Lawson | ECON | Unknown | | + + + + + Care Team Providers + +------+ + | Care Slip Laster Name | Role | Phone | + [...] + + | 12/28/ | Anesthesia | [facility] | Maco Wolf, | | | 2019 | Event | [facility] | MANAGER FOOD SAFETY [address] | | | | | INTRA [address] | [place] [address] | | | | | BLVD [place] | [phone] | | | | | [address] | | | | | | [phone] | | | +--------+ + + + [...] | Salma, | | | | | Real Estate Appraiser Supervisor | | +--------+ + + + | [...] | Leatha Mayer, | | IV | [id number] catheter system; | | RN | | [...] Andres Jones Ramirez 89 y.o. male 1930 [id number] Procedure(s) EGD (N/A Mouth) Cooperates? Yes Mental [...] by Maco Wolf CRNA 12/29/2019 9:48 AM [facility] Maco Wolf CRNA at 0 9:48 AM PDTAnesthesia Preprocedure Evaluation - Maco Wolf CRNA - 12/29/2019 8:59 A M PDT ANESTHESIA PREANESTHESIA EVALUATION Andres Guzmán 89 y.o. male 1930 [id number] Procedure(s): EGD (N/A Mouth) Medical,anesthesia, drug, allergy [...] and agrees to proceed. Discussed plan with MANAGER FOOD SAFETY. Electronically Signed by: Maco Wolf CRNA ESig date/time: 12/29/2019 8:59 AM documented in this e ncounter Miscellaneous Notes Anesthesia Post-op Handoff - Maco Wolf CRNA - 12/29/2019 9:46 AM PDTFormatting of th is note might be different from the original. ANESTHESIA HANDOFF NOTE Andres Jones Ramirez 89 y.o. male 1930 [id number] EGD (N/A Mouth) HANDOFF NOTE Handoff Protocol [...] team. Maco Wolf CRNA 12/29/2019 9:46 AM [facility] Maco Wolf CRNA at [...] | | | | | | [place] [address] | | | | | | [phone] | | | | | | | | +--------+ + + + + | 03/24/ | Hospital | | Anna Edouard, | Esophagitis | | 2020 | Encounter | | MD [address] | | | | | | [place] [address] | | | | | | [phone] | | | | | | | | +--------+ + + + + | 03/24/ | Surgery | | Anna Edouard, | EGD | | 2020 | | | [address] | | | | | | [place] [address] | | | | | | [phone] | | | | | | | | +--------+ + + + + | 03/31/ | Office | Orthopedic Surgery | Sasha Melquiades | | | 2019 | Visit | | DO [address] | | | | | | [place] | | | | | | [place] [address] | | | | | | [phone] | | | | | | | | +--------+ + + + + | 04/21/ | Office | Nephrology | Isiah Jade MD | | | 2019 | Visit | | [address] | | | | | | [address] [place] | | | | | | [address] | | | | | | | | +--------+ + + + + | 05/07/ | Office | Cardiology | Charlee Oswald | | | 2019 | Visit | | [address] | | | | | | [place] | | | | | | [place] [address] | | | | | | [phone] | | | | | | | [...]
--- OUTSIDE RECORDS SUMMARY | ~2020-03-21 | XMS | Encounter Summary ---
Demographics + + + | Address | [address] | | | [place] [address] | + + + | Home Phone [...] [place] | | | | | [address] | | + + + + + | Deanna Lawson | ECON | Unknown | | + + + + + Care Team Providers + +------+ + | Care Marketing Analytics Specialist Name | Role | Phone | + +------+ + | Barbara Gilman MD | PCP | | + +------+ + Encounter Details +--------+ + + + + | Date | Type | Department | Care Team | Description | +--------+ + + + + | 06/25/ | Orders Only | [facility] | Charlee Oswald | | | 2018 | | CARDIOLOGY ALYX | [address] | | | | | [address] | [address] | | | | | [address] | [place] [address] | | | | | [place] | [phone] | | | | | [address] | | | | | | [phone] | | | +--------+ + + + [...] [address] | | | | | | [place] [address] | | | | | | [phone] | | | | | | | | +--------+ + + + + | 03/24/ | Hospital | | Anna Edouard, | Esophagitis | | 2019 | Encounter | | MD [address] | | | | | | [place] [address] | | | | | | [phone] | | | | | | | | +--------+ + + + + | 03/24/ | Surgery | | Anna Edouard, | VANDANA | | 2019 | | | [address] | | | | | | [place] [address] | | | | | | [phone] | | | | | | | | +--------+ + + + + | 03/31/ | Office | Orthopedic Surgery | Melquiades Baez | | | 2019 | Visit | | DO [address] | | | | | | [place], | | | | | | [place] [address] | | | | | | [phone] | | | | | | | | +--------+ + + + + | 04/21/ | Office | Nephrology | Isiah Jade MD | | | 2019 | Visit | | [address] [facility] | | | | | | [address] [place] | | | | | | [address] | | | | | | | | +--------+ + + + + | 05/07/ | Office | Cardiology | Charlee Oswald | | | 2019 | Visit | | [address] | | | | | | [address] | | | | | | [place] [address] | | | | | | [phone] | | | | | | | [...]
--- OUTSIDE RECORDS SUMMARY | ~2020-03-21 | XMS | Encounter Summary ---
Demographics + + + | Address | [address] | | | [place] [address] | + + + | Home Phone | | + + + | Preferred Language | Unknown | + + + | Marital Status | | + + + | Orthodox Affiliation | 1001 | + + + | Race | Unknown | + + + | Ethnic Group | Unknown | + + + Author + + + | Author | [facility] | | | and [place] | + + + | Organization | [facility] | | [...] [place] | | | | | [address] | | + + + + + | Deanna Lawson | ECON | Unknown | | + + + + + Care Team Providers + +------+ + | Care Running Specialist Name | Role | Phone | + +------+ + | Barbara Gilman MD | PCP | | + +------+ + Encounter Details +--------+ + + + + | Date | Type | Department | Care Team | Description | +--------+ + + + + | 01/03/ | Orders Only | [facility] | Lamont Acuña MD | | | 2020 | | GASTROENTEROLOGY | [address] | | | | | [address] | [place], [place] | | | | | [place], [place] | [address] | | | | | [address] | [phone] | | | | | [phone] | | | +--------+ + + + [...] | | | | | | [place] [address] | | | | | | [phone] | | | | | | | | +--------+ + + + + | 03/24/ | Hospital | | Anna Edouard, | Esophagitis | | 2019 | Encounter | | MD [address] | | | | | | [place] [address] | | | | | | [phone] | | | | | | | | +--------+ + + + + | 03/24/ | Surgery | | Anna Edouard, | GRUPOD | | 2019 | | | [address] | | | | | | [place] [address] | | | | | | [phone] | | | | | | | | +--------+ + + + + | 03/31/ | Office | Orthopedic Surgery | Melquiades Baez | | | 2019 | Visit | | DO [address] | | | | | | [place], | | | | | | [place] [address] | | | | | | [phone] | | | | | | | | +--------+ + + + + | 04/21/ | Office | Nephrology | Isiah Jade MD | | | 2019 | Visit | | [address] [facility] [place] | | | | | | [address] [place] | | | | | | [address] | | | | | | | | +--------+ + + + + | 05/07/ | Office | Cardiology | Charlee Oswald | | | 2019 | Visit | | [address] | | | | | | [place] | | | | | | [place] [address] | | | | | | [phone] | | | | | | | | +--------+ + + + + documented as of this encounter Visit Diagnoses Not on filedocumented in this encounter"
--- OUTSIDE RECORDS SUMMARY | ~2020-03-21 | XMS | Encounter Summary ---
Demographics + + + | Address | [address] | | | [place] [address] | + + + | Home Phone | | + + + | Preferred Language | Unknown | + + + | Marital Status | | + + + | Orthodoxy Affiliation | 1001 | + + + | Race | Unknown | + + + | Ethnic Group | Unknown | + + + Author + + + | Author | [facility] | | | and [place] | + + + | Organization | [facility] | | [...] [place] | | | | | [address] | | + + + + + | Deanna Lawson | ECON | Unknown | | + + + + + Care Team Providers + +------+ + | Care Tilesetter Name | Role | Phone | + +------+ + | Barbara Gilman MD | PCP | | + +------+ + Encounter Details +--------+ + + + + | Date | Type | Department | Care Team | Description | +--------+ + + + + | 01/25/ | Orders Only | [facility] | Enoch Thompson, | | | 2019 | | CARDIOLOGY [place] | [address] | | | | | [address] | [place] [facility], | | | | | [place], [place] | [place] [address] | | | | | [address] | [phone] | | | | | [phone] | | | +--------+ + + + [...] | | | | | [place] [address] | | | | | | [phone] | | | | | | | | +--------+ + + + + | 03/24/ | Hospital | | Anna Edouard, | Esophagitis | | 2020 | Encounter | | MD [address] | | | | | | [place] [address] | | | | | | [phone] | | | | | | | | +--------+ + + + + | 03/24/ | Surgery | | Anna Edouard | EGD | | 2019 | | | [address] | | | | | | [place] [address] | | | | | | [phone] | | | | | | | | +--------+ + + + + | 03/31/ | Office | Orthopedic Surgery | Melquiades Baez | | | 2019 | Visit | | DO [address] | | | | | | [place], | | | | | | [place] [address] | | | | | | [phone] | | | | | | | | +--------+ + + + + | 04/21/ | Office | Nephrology | Isiah Jade MD | | | 2019 | Visit | | [address] [facility] | | | | | | [address] [place] | | | | | | [address] | | | | | | | | +--------+ + + + + | 05/07/ | Office | Cardiology | Charlee Oswald | | | 2019 | Visit | | [address] | | | | | | [address] | | | | | | [place] [address] | | | | | | [phone] | | | | | | | [...]
--- OUTSIDE RECORDS SUMMARY | ~2020-03-21 | XMS | Encounter Summary ---
Demographics + + + | Address | [address] | | | [place] [address] | + + + | Home Phone [...] [place] | | | | | [address] | | + + + + + | Deanan Lawson | ECON | Unknown | | + + + + + Care Team Providers + +------+ + | Care Rn Access Name | Role | Phone | + +------+ + | Barbara Gilman MD | PCP | | + +------+ + Encounter Details +--------+ + + + + | Date | Type | Department | Care Team | Description | +--------+ + + + + | 01/20/ | Hospital | [facility] | Melquiades Baez | Right hip pain | | 2019 | Encounter | [address] | DO [address] | | | | | [address] | [address] [place], | | | | | [place], [place] | [place] [address] | | | | | [address] | [phone] | | | | | [phone] | | | +--------+ + + + [...] | | | | | | [place] [address] | | | | | | [phone] | | | | | | | | +--------+ + + + + | 03/24/ | Hospital | | Anna Edouard, | Esophagitis | | 2019 | Encounter | | MD [address] | | | | | | [place] [address] | | | | | | [phone] | | | | | | | | +--------+ + + + + | 03/24/ | Surgery | | Anna Edouard | EGD | | 2019 | | | [address] | | | | | | [place] [address] | | | | | | [phone] | | | | | | | | +--------+ + + + + | 03/31/ | Office | Orthopedic Surgery | Melquiades Baez | | | 2019 | Visit | | [address] | | | | | | [place], | | | | | | [place] [address] | | | | | | [phone] | | | | | | | | +--------+ + + + + | 04/21/ | Office | Nephrology | Isiah Jade MD | | | 2019 | Visit | | [address] | | | | | | [address] [place] | | | | | | [address] | | | | | | | | +--------+ + + + + | 05/07/ | Office | Cardiology | Charlee Oswald | | | 2019 | Visit | | [address] | | | | | | [place] | | | | | | [place] [address] | | | | | | [phone] | | | | | | | [...] Baez DO has created this entry using [employer]ollGo | | | Recognition software and Crunchyroll macros. The entry has been reviewed | | | and there may still exist sound alike word errors. | | | | | |Electronically signed by: Melquiades Baez DO 01/24/2020 1:05 PM | | | | | | | | |Melquiades Baez DO has created this entry using [employer] | | |Recognition software and Crunchyroll macros. The entry has been reviewed and [...]
--- OUTSIDE RECORDS SUMMARY | ~2020-03-21 | XMS | Encounter Summary ---
Demographics + + + | Address | [address] | | | [place] [address] | + + + | Home Phone [...] [place] | | | | | [address] | | + + + + + | Deanna Lawson | ECON | Unknown | | + + + + + Care Team Providers + +------+ + | Care Radiological Metallurgist Name | Role | Phone | + +------+ + PCP | Unavailable | + +------+ + Encounter Details +--------+ + + + + | Date | Type | Department | Care Team | Description | +--------+ + + + + | 07/25/ | Hospital | [facility] | Yoli Harding MD | Dyspnea, unspecified | | 2017 - | Encounter | [facility] | [address] | type; Fatigue, | | | | CARE FLOOR [address] | [place] [address] | unspecified type; | | 07/29/ | | [address] | [phone] | Altered mental | | 2016 | | [place], [place] | | status, unspecified | | | | [address] | | altered mental | | | | [phone] | | status type; | | | [...] Date of Service: 07/29/17 1003 Status: Signed Industrial Plant Custodian: Gutierrez Lopez MD (Physician) [facility] Service: Hospitalist Discharge Summary Date of [...] congestive heart failure clinic, arranged by case mgr and outpatient sharon metzger. Past Medical History [...] Take 500 mg by mouth daily. 07/24/2017@0700 Rqsoyio-Zrollaudj-Qqtwesh D 600-40-500 MG-MG-UNIT TB24 Take 1,200 mg [...] Take 1 tablet by mouth daily. 2016@00 Teasdale 3 1000 MG CAPS Take 1 capsule [...] indicated below and as discussed by case mgr's at Bedside. Disposition: Home Condition: Stable Code Status: Full Code Discharge Instructions Diet Cardiac Diet Low Sodium Activity as Tolerated Follow up: ENEDINA Dickerson [address] [facility] [id number] Go on 07/31/2017 Hospital Follow Up Guided Patient Services Guided Patient Services GPS Warhead Maintenance Specialist- JIAN Harmon [phone] Mon-Fri 7:30 AM 4:00 PM Call for any questions or concerns after your discharge home, or for help making follow up appointments. ENEDINA Sandoval [address] [place] [address] On 08/08/2017 Post-Hopsital discharge Follow-up. Medication List [...] Refills: 0 Commonly known as: VITAMIN C Aqoctyq-Amredrxba-Rfnfaby D 600-40-500 MG-MG-UNIT Tb24 Refills: 0 glipiZIDE [...] (none) Author Type: Registered Nurse Filed: 07/29/17 1572 Date of Service: 07/29/171344 Status: Signed Industrial Plant Custodian: Valeria Martinez RN (Registered Nurse) Patient discharged home via private vehicle with family. Heart failure education completed, all discharge instructions discussed. Patient has heart failure education packet and paper prescriptions in possession. All questions answered, all patient belongings with family. Shalini oleary wheeled out with WASH CREW PERSON, all vital signs stable upon discharge. VALERIA MARTINEZ RN onver jose a Transaction, Provider Unknown - 07/28/2017 3:18 PM PST Progress Notes by Carina Quintero CMA at 07/28/17 6229 Author: Carina Quintero CMA Service: (none) Author Type: Corporate Planner Filed: 07/28/17 9572 Date of Service: 07/28/171517 Status: Signed Industrial Plant Custodian: Carina Quintero CMA (Corporate Planner) GPS- Patient enrolled. Scheduled to see Abril on 08/08 and PCP on 07/31 onver jose a Transaction, Provider Unknown - 07/28/2017 2:43 PM PST Case Management by Yousuf Mcfadden RN at 07/28/17 1443 Author: Yousuf Mcfadden RN Service: (none) Author Type: Registered Nurse Filed: 07/28/17 1444 Date of Service: 07/28/17 144 Status: Signed Industrial Plant Custodian: Yousuf Mcfadden RN (Registered Nurse) I met with patient in rounds, he is enrolled in the CHF program through [facility] a nd has follow up schedule with his cardiologists. bleGutierrez lyn MD - 07/28/2017 6:56 AM PST Progress Notes by Gutierrez Lopez MD at 07/28/17 0656 Author: Gutierrez Lopez MD Service: Hospitalist Author Type: Physician Filed: 07/28/17 1342 Date of Service: 07/28/1756 Status: Signed Industrial Plant Custodian: Gutierrez Lopez MD (Physician) [facility] Service: Hospitalist Progress Note Hospital Day: [...] 07/28/17617 Date of Service: 07/28/17612 Status: Signed Industrial Plant Custodian: Stacey Ley RN (Registered Nurse) Patient again [...] Date of Service: 07/27/17 1015 Status: Signed Industrial Plant Custodian: Gutierrez Lopez MD (Physician) [facility] Service: Hospitalist Progress Note Hospital Day: [...] (none) Author Type: Registered Nurse Filed: 07/26/17 0331 Date of Service: 07/26/17 143 Status: Signed Industrial Plant Custodian: Yousuf Mcfadden RN (Registered Nurse) 07/26/17 143 [...] independent an d lives with his in [place]. He goes to the [facility] for his coumadin checks an d doesn't use any DME. Andres denies having needs for discharge. Patient's PCP is:Janie Beltrán Patient's insurance:Medicare and [email or web address] Coverage concerns: none Medication coverage/concerns: yes/no Community [...] Date of Service: 07/26/17 0809 Status: Signed Industrial Plant Custodian: Nathen Coughlin MD (Physician) [facility] Service: Hospitalist Progress Note Pt: Andres [...] last discharge his hgb was 8.1 in canadian. He was given iv lasix with improvement [...] and managing patient and counseling/coordination. Dictation software, [employer], used which may contain error for similar [...] Author: Demond Sandy Service: (none) Author Type: Facilities Management Executive Filed: 07/25/171950 Date of Service: 07/25/171946 Status: Signed Industrial Plant Custodian: Demond Sandy () Visit per pt req. Pt sitting up in bed, pt (Marissa) sitting next to bed. Pt welcomed vi sit. Chp provided caring listening. Pt did some life review - talked proudly about his & wif e's 63 years of marriage & 3 children. Pt also explained he & are [employer], an d quite involved there. Day RN & night RN came in to do hand-off report. Pt & both said how great the care has been & how they've enjoyed their nurses. Positive visit with kindly couple. Facilities Management Executivetavo Sandy onver jose a Transaction, Provider Unknown - 07/25/2017 2:49 PM PST Pharmacy Note by Renuka Rneo RPH at 07/25/171448 Author: Renuka Reno RPH Service: Pharmacy Author Type: Pharmacist Filed: 07/25/171448 Date of Service: 07/25/17 1449 Status: Signed Industrial Plant Custodian: Renuka Reno RPH (Pharmacist) Renal Dosing Monitoring: [...] Date of Service: 07/25/17 1230 Status: Signed Industrial Plant Custodian: Yoli Harding MD (Physician) Related Notes: Original Note by Yoli Harding MD (Physician) filed at 07/25/17 1423 [facility] Service: Hospitalist Admission History & Physical [...] GI bleeding when he was seen at [facility] from June 23, 2017, to June 26. [...] weight gain since the last [address] [facility]. He drinks about 3 to 4 L of fluids daily but is compliant with his diet restriction and compliant with his medications. His labs on discharge at the [facility] showe d a hemoglobin of 8.1 and [...] kidney injury (HCC) ASSESSMENT & PLAN 1. Qtiaq-ib-zozbgno diastolic congestive heart failure most likely secondary [...] the primary care physician genia t the [place]. His INR is subtherapeutic at 1.6. We [...] Date of Service: 07/25/17 1042 Status: Signed Industrial Plant Custodian: Mikey Reynaga MD (Physician) Procedure Orders: 1. POCT occult blood stool [[id number]] ordered by Mikey Reynaga MD at 07/25/17 1410 [facility] Department of Emergency Medicine 10:42 AM [...] since hospital admission. 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 Does not have a PCP. No history of COPD, emphysema, or asthma. Smoker years ago for about 30 years. Taking Lasix. Computer Compositor: Charlee Oswald Past Medical History Diagnosis Date [...] 500 mg by mouth daily. Historical Provider Kzltarx-Cgnkruwpy-Frxmvuq D 600-40-500 MG-MG-UNIT TB24 Take 1,200 mg [...] (two) times daily. Historical Provider Multiple Vitamins-Minerals ([facility] PO) Take by mouth daily. Historical Provi immanuel Teasdale-3 Fatty Acids (OMEGA 3 PO) Take by [...] Component Value Ref Range Date/Time Cardiac Panel [[id number]] (Abnormal) Collected: 07/25/17 1051 Order Status: Completed [...] ng/mL CK-MB Index 3.2 Troponin I, Lab [[id number]] Collected: 07/25/17 105 Order Status: Completed Specimen: Blood Updated: 07/25/17 1127 TROPONIN I <0.020 0.00 - 0.10 ng/mL BNP [[id number]] (Abnormal) Collected: 07/25/17 1051 Order Status: Completed [...] negative stool. Performed by ED provider. Hemoccult quality control tech raw materials Passed. Attending Provider Note: IMikey MD personally [...] Date of Service: 07/25/17 1010 Status: Signed Industrial Plant Custodian: Michelle Dawson RN (Registered Nurse) 87 yr [...] Date of Service: 07/29/17 1300 Status: Signed Industrial Plant Custodian: Valeria Martinez RN (Registered Nurse) Problem: Discharge [...] 0552 Date of Service: 07/28/172208 Status: Addendum Industrial Plant Custodian: Wanda Levine RN (Registered Nurse) Related Notes: [...] 07/28/171728 Date of Service: 07/28/171726 Status: Signed Industrial Plant Custodian: Valeria Martinez RN (Registered Nurse) Problem: Fluid [...] 07/28/17511 Date of Service: 07/28/17511 Status: Signed Industrial Plant Custodian: Stacey Ley RN (Registered Nurse) Problem: Fluid [...] 07/27/171529 Date of Service: 07/27/171529 Status: Signed Industrial Plant Custodian: Candice Rodriguez RN (Registered Nurse) Problem: Fluid [...] 07/27/17437 Date of Service: 07/27/17437 Status: Signed Industrial Plant Custodian: Bhumi Chaparro RN (Registered Nurse) Problem: Safety [...] 07/27/17435 Date of Service: 07/27/17435 Status: Signed Industrial Plant Custodian: Bhumi Chaparro RN (Registered Nurse) Problem: Safety [...] 07/26/17603 Date of Service: 07/26/17603 Status: Signed Industrial Plant Custodian: Bhumi Chaparro RN (Registered Nurse) Problem: Safety [...] 07/25/171515 Date of Service: 07/25/171514 Status: Signed Industrial Plant Custodian: Valeria Martinez RN (Registered Nurse) Problem: Fluid [...] 07/25/171437 Date of Service: 07/25/171437 Status: Signed Industrial Plant Custodian: Ramandeep Abbott RPH (Pharmacist) Rx Admission Medication History Note I have reviewed the medication history for appropriate doses obtained by: Pharmacy Medicat ion History Finishing And Shipping Supervisor. After reviewing the home medication list : I agree with the home medication list. - Removed aspirin as no longer taking - Patient does not follow with the [facility] Coumadin clinic, however, he knew his doses and t akes it every night at 1800. Last does was 07/24/17 Please Review and Order Home Medications as necessary. Thanks Ramandeep Abbott RPH 07/25/2017 2:37 PM >> Donna Hernandez CPhT 07/25/2017 14:29 Rx Medication History Finishing And Shipping Supervisor Note Patients Preferred Pharmacy has been updated in EPIC: yes -[facility] - [place], [place] - [address] [place] [address] Patients Allergies have been updated and marked [...] | Visit | Testing | MD Regis CAEVEDO | | | | | | [place] [address] | | | | | | [phone] | | | | | | | | +--------+ + + + + | 03/24/ | Hospital | | Anna Edouard, | Esophagitis | | 2019 | Encounter | | MD Regis ACEVEDO | | | | | | [place] [address] | | | | | | [phone] | | | | | | | | +--------+ + + + + | 03/24/ | Surgery | | Anna Edouard | EGD | | 2019 | | | [address] | | | | | | [place] [address] | | | | | | [phone] | | | | | | | | +--------+ + + + + | 03/31/ | Office | Orthopedic Surgery | Melquiades Baez | | | 2019 | Visit | | DO [address] | | | | | | [place], | | | | | | [place] [address] | | | | | | [phone] | | | | | | | | +--------+ + + + + | 04/21/ | Office | Nephrology | Isiah Jade MD | | | 2019 | Visit | | [address] [facility] | | | | | | [address] | | | | | | [address] | | | | | | | | +--------+ + + + + | 05/07/ | Office | Cardiology | Charlee Oswald | | | 2020 | Visit | | [address] | | | | | | [address] | | | | | | [place] [address] | | | | | | [phone] | | | | | | | [...] | | | Fingerstick | performed at [facility];[address] | | LAB | | | [address];[place], [place] | | | | | | [address] | | | | + + + [...] | | | Fingerstick | performed at [facility];[address] | | LAB | | | | [address];[place], [place] | | | | | | [address] | | | | + + + [...] | | | Fingerstick | performed at [facility];[address] | | LAB | | | | [address];[place], [place] | | | | | | [address] | | | | + + + [...] | | | | | performed at [facility] | | | | | | [facility];[place], [place] | | | | | | [address] | | | | + + + [...] | | | Basophils | performed at [facility], [address] | [address] | LAB | | | | [address], | | | | | | [place] [address] | | | | + + + [...] EXTERNAL | | | | performed at [facility], [address] | | LAB | | | | [address], | | | | | | [place] [address] | | | | + + + [...] | | | | | | at [facility], [address] | | | | | | [address], | | | | | | [place] [address] | | | | + + + [...] | | | Fingerstick | performed at [facility];[address] | | LAB | | | [address];[place], [place] | | | | | | [address] | | | | + + + [...] | | | Fingerstick | performed at [facility];[address] | | LAB | | | | [address];[place] | | | | | | [address] | | | | + + + [...] | | | Fingerstick | performed at [facility];[address] | | LAB | | | | [address];[place], [place] | | | | | | [address] | | | | + + + [...] RECEIVEDAbnormal | | | Testing performed at [facility];[address] [facility];[place] [address] | | + + + + +---------+ [...] | | | Fingerstick | performed at [facility];[address] | | LAB | | | | [address];[place], [place] | | | | | | [address] | | | | + + + + + + + + | Specimen | + + | | + + + +---------+ + + | Performing | Address | City/State/Zipcode | Phone Number | | Organization | | | | + +---------+ + + | EXTERNAL LAB | | | | + +---------+ + + Shine ORTEGA (07/28/2017 4:42 AM PST) + + + [...] | | | | | performed at [facility] | | | | | | [address] [facility];[place], [place] | | | | | | [address] | | | | + + + [...] | | | Basophils | performed at [facility], [address] | K/uL | LAB | | | | [address], | | | | | | [place] [address] | | | | + + + [...] | | | | | | [address], | | | | | | [place] [address] | | | | + + + [...] | | | Fingerstick | performed at [facility];[address] | | LAB | | | [address];[place], [place] | | | | | | [address] | | | | + + + [...] | | | Fingerstick | performed at [facility] | | LAB | | | | [address];[place] | | | | | | [address] | | | | + + + [...] | | | Urine | performed at [facility], [address] | | | | | | [address], | | | | | | [place] [address] | | | | + + + [...] LAB | | | | performed at [facility], [address] | | | | | | [address], | | | | | | [place] [address] | | | | + + + [...] | | | Fingerstick | performed at [facility];[address] | | LAB | | | | [address];[place], [place] | | | | | | [address] | | | | + + + [...] | | | Fingerstick | performed at [facility];[address] | | LAB | | | | [address];[place] | | | | | | [address] | | | | + + + [...] | LAB | | | | [address], | | | | | | [place] [address] | | | | + + [...] | | | | | performed at [facility];[address] | | | | | | [address];[place], [place] | | | | | | [address] | | | | + + + [...] | | | Reticulocyt | performed at [facility], [address] | | LAB | | | [address] | [address] | | | | | | [place] [address] | | | | + + + [...] | | | Basophils | performed at [facility], [address] | K/uL | LAB | | | | [address], | | | | | | [place] [address] | | | | + + + [...] | | | External | performed at [facility], [address] | | LAB | | | | [address], | | | | | | [place] [address] | | | | + + + [...] | | | | | | at [facility], [address] | | | | | | [facility], | | | | | | [place] [address] | | | | + + + [...] | | | Fingerstick | performed at [facility];[address] | | LAB | | | | [address];[place] | | | | | | [address] | | | | + + + [...] | | | Fingerstick | performed at [facility];[address] | | LAB | | | [address];[place], [place] | | | | | | [address] | | | | + + + [...] | | | Fingerstick | performed at [facility];[address] | | LAB | | | | [address];[place], [place] | | | | | | [address] | | | | + + + [...] aortic stenosis. | | | Mitral Valve: Zodb-qx-zcwhqrdd mitral regurgitation is present. | | | [...] 1.88 cm AR Dec | | | Donley: 2.33 m/s2 AR Dec Time: 1398.10 ms [...] TV A Good: 0.32 m/s TV Dec Donley: 2.31 m/s2 | | | TV Dec Time: 215.03 ms TV E Good: 0.49 m/s TV E/A Ratio: | | | 1.53 Parking Technician: DOMITILA Authenticated by: JENNIFER SWAIN MD | | | Report Date/Time: -- 11_[id number]:39:27 | | + + + + + | Procedure Note | + + | Kobe Rad Conversion - 04/03/2019 7:51 PM PDT [...] evidence of aortic stenosis.Mitral Valve: | | Uerh-iu-szgyxihr mitral regurgitation is present.Mitral Valve: Mild mitral [...] BPMR-R: 973.47 msLAESV(A-L): 99.35 mlLAAs A2C: 27.25 yo3FRBSY A-L A2C: 99.85 | | mlLAESV MOD A2C: 93.96 mlLALs A2C: 6.31 cmLAAs A4C: 26.56 ii8PODGZ A-L A4C: | | 96.85 mlLAESV MOD A4C: 88.08 mlLALs A4C: 6.18 cmTAPSE: 1.88 cmAR Dec Donley: 2.33 | | m/s2AR Dec Time: 1398.10 msAR maxP.73 mmHgAR PHT: 405.45 msAR Vmax: 3.26 | | m/sHR: 64.46 BPMAV maxP.44 mmHgAV meanP.16 mmHgAV Vmax: 1.36 m/Armen | | Vmean: 0.98 m/Armen VTI: 29.20 cmAVA Vmax: 2.97 cm2AVA (VTI): 2.95 il1ZAHH Dopp: | | 5.01 l/minHR: 58.18 BPMLVOT [...] A | | Good: 0.32 m/sTV Dec Donley: 2.31 m/s2TV Dec Time: 215.03 msTV E Good: 0.49 m/sTV | | E/A Ratio: 1.53 Parking Technician: GDAuthenticated by: JENNIFER SANTANA[facility]lord [facility] | | Date/Time: -- [id number]:39:27 IMPRESSION: 1. Left ventricular systolic function is [...] | |TAPSE: 1.88 cm | |AR Dec Donley: 2.33 m/s2 | |AR Dec Time: 1398.10 [...] A Good: 0.32 m/s | |TV Dec Donley: 2.31 m/s2 | |TV Dec Time: 215.03 ms | |TV E Good: 0.49 m/s | |TV E/A Ratio: 1.53 | | | |Parking Technician: GD | |Authenticated by: JENNIFER SWAIN MD | |Report Date/Time: -- 66_[id number]:39:27 | | | |IMPRESSION: | |1. Left [...] | | | Fingerstick | performed at [facility];[address] | | LAB | | | | [facility];[place], [place] | | | | | | [address] | | | | + + + + + + + + | Specimen | + + | | + + + +---------+ + + | Performing | Address | City/State/Zipcode | Phone Number | | Organization | | | | + +---------+ + + | EXTERNAL LAB | | | | + +---------+ + + Tabbyime JORDAN (07/26/2017 4:13 AM PST) + + + [...] | | | | | performed at [facility] | | | | | | [address] [facility];[place], [place] | | | | | | [address] | | | | + + + [...] | | | Basophils | performed at [facility], [address] | K/uL | LAB | | | | [address], | | | | | | [place] [address] | | | | + + + [...] EXTERNAL | | | | performed at [facility], [address] | uIU/mL | LAB | | | | [address], | | | | | | [place] [address] | | | | + + + [...] | LAB | | | | [address], | | | | | | [place] [address] | | | | + + + [...] EXTERNAL | | | | performed at [facility];[address] | | LAB | | | | [address];[place], [place] | | | | | | [address] | | | | + + + [...] EXTERNAL | | | | performed at [facility], [address] | | LAB | | | | [address], | | | | | | [place] [address] | | | | + + + [...] + + | Hemoglobin | 5.5Comment: The [place] | 4.0 - 6.0 % | EXTERNAL [...] | | | | | performed at [facility], [address] | | | | | | [facility], | | | | | | [place] [address] | | | | + + + [...] | | | | | | [address], | | | | | | [place] [address] | | | | + + + [...] | | | | | | ACUTE [place] Testing | | | | | | performed at [facility];[address] | | | | | | [facility];[place], [place] | | | | | | [address] | | | | + + + [...] | | | Fingerstick | performed at [facility];[address] | | LAB | | | | [address];[place] | | | | | | [address] | | | | + + + [...] | | | | | | ACUTE [place] Testing | | | | | | performed at [facility];[address] | | | | | | [address];[place], [place] | | | | | | [address] | | | | + + + [...] | | | Fingerstick | performed at [facility];[address] | | LAB | | | | [address];[place] | | | | | | [address] | | | | + + + [...] + + | Kobe, Leonides Conversion - 04/03/2019 7:51 PM PDT ANDRES Kilpatrick CHULA LOWER EXTREMITY | | VENOUS DOPPLER BIL07/25/2017 [...] - 04/03/2019 7:51 PM PDT ANDRES Kilpatrick EICHHOLZ9[birth year]13[birth year] years MaleXR | | CHEST 2 VIEW FRONTAL AND HJJIOSJ25/5/2017 11:18 AM INDICATION: Shortness of breath | [...] | | | | | | ACUTE [place] Testing | | | | | | performed at [facility];[address] | | | | | | [facility];[place], [place] | | | | | | [address] | | | | + + + [...] EXTERNAL | | | | performed at [facility];[address] | | LAB | | | | [address];[place] | | | | | | [address] | | | | + + + [...] Performed by ED provider. Hemoccult quality control tech raw materials Passed. | | + + + + [...] (500), | | | | | | magazine editor ART BROWN (2) | | | | | | on 07/25/2017 5:09:42 PM | | | | | | | | | | + + + + + + + + | Specimen | + + | | + + + + + | Narrative | Performed At | + + + | [facility]ically [facility] Epic environment | EXTERNAL LAB | + [...] Unspecified essential hypertension | + + | Esophagitis - Primary Esophagitis, unspecified | + + | Esophagitis Esophagitis, unspecified | + + documented in this encounter
--- OUTSIDE RECORDS SUMMARY | ~2020-03-21 | XMS | Encounter Summary ---
Demographics + + + | Address | [address] | | | [place] [address] | + + + | Home Phone [...] [place] | | | | | [address] | | + + + + + | Deanna Lawson | ECON | Unknown | | + + + + + Care Team Providers + +------+ + | Care Buffing Wheel Presser Name | Role | Phone | + +------+ + | Barbara Gilman MD | PCP | | + +------+ + Reason for Visit + +--------+ + | Reason | Onset | Comments | | | Date | | + +--------+ + | Pre-Procedure | 03/20/ | CALL | | | 2020 | | + +--------+ + Encounter Details +--------+ + + + + | Date | Type | Department | Care Team | Description | +--------+ + + + + | 03/20/ | Telephone | [facility] | Anna Canas, | Pre-Procedure (CALL) | | 2019 | | GASTROENTEROLOGY | [address] | | | | | [address] | [place] [address] | | | | | [place], [place] | [phone] | | | | | [address] | | | | | | [phone] | | | +--------+ + + + [...] encounter Miscellaneous Notes Telephone Encounter - Raissa Dawkins International Project Manager - 03/20/2020 9:25 AM PDTCalled patient and went over letter of instructions that was given to them here at the clinic. - The day before can have light meals by 6 p.m or whenever they have lunch or dinner. Nothi ng to eat or drink starting at midnight until after procedure. - Patient to follow instructions from paperwork as instructed in clinic. To also have a res ponsible pile driver operator barge mounted someone over 18 years old. If any questions or concerns please call our clin ic at [phone]. Procedure: EGD Procedure Date: 03/24/20 Procedure Time: 1:04 PM Arrival time: 10:00 A.M (was informed pt is to arrive 3 hours sooner to have COVID test don e) Facility: [facility] ([facility]: [address] [place] [address], NUMBER TO [place] E-REG #[id number] OPTION: 4) Provider: DR. CANAS Has pt pre-registered: Patient stated yes PATIENT CONFIRMED UNDERSTANDING OF PROCEDURE, DATE, TIME, AND INSTRUCTIONS. docu mented in this encounter Plan of Treatment +--------+ + + + + | Date | Type | Specialty | Care Team | Description | +--------+ + + + + | 03/23/ | Preadmit | Pre-Admission | Anna Canas, | | | 2019 | Visit | Testing | [address] | | | | | | [place] [address] | | | | | | [phone] | | | | | | | | +--------+ + + + + | 03/24/ | Hospital | | Anna Canas, | Esophagitis | | 2020 | Encounter | | [address] | | | | | | [place] [address] | | | | | | [phone] | | | | | | | | +--------+ + + + + | 03/24/ | Surgery | | Anna Canas, | EGD | | 2020 | | | MD [address] | | | | | | [place] [address] | | | | | | [phone] | | | | | | | | +--------+ + + + + | 03/31/ | Office | Orthopedic Surgery | Melquiades Baez | | | 2019 | Visit | | [address] | | | | | | [facility] [place] | | | | | [place] [address] | | | | | | [phone] | | | | | | | | +--------+ + + + + | 04/21/ | Office | Nephrology | Isiah Jade MD | | | 2019 | Visit | | [address] [facility] | | | | | | [address] [place] | | | | | | [address] | | | | | | | | +--------+ + + + + | 05/07/ | Office | Cardiology | Charlee Oswald | | | 2019 | Visit | | [address] | | | | | | [address] | | | | | | [place] [address] | | | | | | [phone] | | | | | | | | +--------+ + + + + documented as of this encounter Visit Diagnoses Not on filedocumented in this encounter"
--- OUTSIDE RECORDS SUMMARY | ~2020-03-21 | XMS | Encounter Summary ---
Demographics + + + | Address | [address] | | | [place] [address] | + + + | Home Phone [...] [place] | | | | | [address] | | + + + + + | Deanna Lawson | ECON | Unknown | | + + + + + Care Team Providers + +------+ + | Care Production Engineer Name | Role | Phone | [...] + + | 08/12/ | Procedure | [facility] | | Cardiac pacemaker in | | 2019 | visit | CARDIOLOGY [place] | | situ (Primary Dx) | | | | [address] | | | | | | [place] | | | | | | [address] | | | | | | [phone] | | | +--------+ + + + [...] of this encounter Procedure Notes Mercedez Bains, Music Assistant - 08/12/2019 8:00 AM PSTAssociated Order(s): DEVICE INT ERROGATION- REMOTEProcedure(s): DEVICE INTERROGATION- REMOTEPre-Procedure Diagnose(s): Prese nce of cardiac pacemaker PACEMAKER REMOTE INTERROGATION REPORT Name: Andres Guzmán PCP: Barbara Gilman MD : 1930 Primary cardiology provider: Charlee Oswald Primary electrophysiology provider: Enoch Thompson Device technician support association: [employer] Device type: Single chamber (Ventricular) Battery Longevity: [...] [address] | | | | | | [place] [address] | | | | | | [phone] | | | | | | | | +--------+ + + + + | 03/24/ | Hospital | | Anna Edouard, | Esophagitis | | 2019 | Encounter | | MD [address] | | | | | | [place] [address] | | | | | | [phone] | | | | | | | | +--------+ + + + + | 03/24/ | Surgery | | Anna Edouard, | EGD | | 2019 | | | MD [address] | | | | | | [place] [address] | | | | | | [phone] | | | | | | | | +--------+ + + + + | 03/31/ | Office | Orthopedic Surgery | Melquiades Baez | | | 2019 | Visit | | [address] | | | | | | [address] | | | | | | [place] [address] | | | | | | [phone] | | | | | | | | +--------+ + + + + | 04/21/ | Office | Nephrology | Isiah Jade MD | | | 2019 | Visit | | [address] | | | | | | [address] | | | | | | [address] | | | | | | | | +--------+ + + + + | 05/07/ | Office | Cardiology | DarekCharlee | | | 2019 | Visit | | [address] | | | | | | [address] | | | | | | [place] [address] | | | | | | [phone] | | | | | | | [...] Mercedez Jensen | LUCA | | Herson, Music Assistant 08/12/2019 4:09 [facility] | | | INTERROGATION REPORT Name: Andres Guzmán PCP: Barbara Elkins | | | MD Mukul : 1930MRN: [id number] Primary cardiology | | | provider: Charlee Oswald Primary electrophysiology provider: Enoch | | | Jay Device technician support association: [employer] Device type: Single | | | chamber [...]
--- OUTSIDE RECORDS SUMMARY | ~2020-03-21 | XMS | Encounter Summary ---
Demographics + + + | Address | [address] | | | [place] [address] | + + + | Home Phone [...] [place] | | | | | [address] | | + + + + + | Deanna Lawson | ECON | Unknown | | + + + + + Care Team Providers + +------+ + | Care Paper Machine Backtender Name | Role | Phone | + [...] [address] | | | | | [place], [place] | [place] [address] | | | | | [address] | [phone] | | | | | [phone] | | | +--------+ + + + [...] | | | | | [place] [address] | | | | | | [phone] | | | | | | | | +--------+ + + + + | 03/24/ | Hospital | | Anna Edouard, | Esophagitis | | 2020 | Encounter | | [address] | | | | | | [place] [address] | | | | | | [phone] | | | | | | | | +--------+ + + + + | 03/24/ | Surgery | | Anna Edouard | EGD | | 2019 | | | [address] | | | | | | [place] [address] | | | | | | [phone] | | | | | | | | +--------+ + + + + | 03/31/ | Office | Orthopedic Surgery | Melquiades Baez | | | 2019 | Visit | | [address] | | | | | | [place], | | | | | | [place] [address] | | | | | | [phone] | | | | | | | | +--------+ + + + + | 04/21/ | Office | Nephrology | Isiah Jade MD | | 2019 | Visit | | [address] [facility] | | | | | | [address] | | | | | | [address] | | | | | | | | +--------+ + + + + | 05/07/ | Office | Cardiology | Charlee Oswald | | | 2020 | Visit | | [address] | | | | | | [address] | | | | | | [place] [address] | | | | | | [phone] | | | | | | | [...] TR Vmax: 3.45 m/s | | | Shell Fisherman: DAR Authenticated by: Vikki Godoy Report | | | Date/Time: -- [id number]:23:50 | | + + + + ------+ | Procedure Note | + ------+ | Leonides Bullock Conversion - 04/11/2019 6:07 PM PDT Patient Name: Francisco Guzmná of | | : 1930 Performing Physician: [...] cmLVPWd: 0.86 cmLVOT Area: | | 3.66 [id number] Diam: 2.15 cm%FS: 30.74 %EF(Teich): 57.74 %ESV(Teich): [...] mlLAESV Index (A-L): 55.88 ml/m2LAAs A2C: 25.46 mo2IZHRZ A-L | | A2C: 88.15 mlLALs A2C: 6.24 cmLAAs A4C: 29.53 rp7ULXQN A-L A4C: 110.72 mlLALs | | A4C: 6.68 cmRAAs: 31.00 rg3UDJPH A-L: 119.55 mlRAESV MOD: 117.88 mlRALs: 6.82 | | cmTAPSE: 1.87 cmAV maxP.43 mmHgAV meanP.22 mmHgAV Vmax: 1.05 m/Armen | | Vmean: 0.69 m/Armen VTI: 18.19 cmAVA Vmax: 2.31 cm2AVA (VTI): 2.75 mc1NIVK Vmax: | | 0.00 cm2/m2AVAI (VTI): 0.00 cm2/m2LVOT maxP.76 mmHgLVOT meanP.05 mmHgLVSI | | Dopp: 27.38 ml/m2LVSV Dopp: 50.12 mlLVOT Vmax: 0.66 m/sLVOT Vmean: 0.48 m/sLVOT | | VTI: 13.68 cmMV A Good: 0.02 m/sMV DecT: 135.32 msMV E Good: 0.84 m/sMV E/A | | Ratio: 38.78MV PHT: 39.24 msMVA By PHT: 5.60 ec7Mnpcqj e': 0.03 m/sSeptal E/e': | | 21.63Lateral e': 0.08 m/sLateral E/e': 10.19RAP: 15 mmHgRVSP: 62.86 mmHgTR | | maxP.86 mmHgTR Vmax: 3.45 m/s Shell Fisherman: Rodolfoticated by: Jayne | | [facility] Date/Time: -- [id number]:23:50 IMPRESSION: 1. The left ventricle is | [...] |TR Vmax: 3.45 m/s | | | |Shell Fisherman: DH | |Authenticated by: Vikki Godoy | |Report Date/Time: [id number]:23:50 | | | |IMPRESSION: | |1. The [...]
--- OUTSIDE RECORDS SUMMARY | ~2020-03-21 | XMS | Encounter Summary ---
Demographics + + + | Address | [address] | | | [place] [address] | + + + | Home Phone [...] [place] | | | | | [address] | | + + + + + | Deanna Lawson | ECON | Unknown | | + + + + + Care Team Providers + +------+ + | Care Knife Glazer Name | Role | Phone | + [...] + + | 12/21/ | Surgery | [facility] | Melquiades Baez | NAILING IM BETSY FEMUR | | 2019 | [facility] | DO [address] | - GAMMA NAIL | | | | OPERATING ROOM [address] | [address] [facility] [facility], | | | | | [address] | [place] [address] | | | | | [place], [place] | [phone] | | | | | [address] | | | | | | [phone] | | | +--------+---------+ + + + [...] was on board. No immediate indication for ORDER CHECKER PACKER PROCESSER. Patient was also seen by physical therapy and occupational therapy and was recommended for discharging to [facility]. However patient will b e going to [facility] at this time. Patient also had [...] No CVA tenderness, no spinal tenderness Disposition: [facility] Condition: Fair No discharge procedures on file. [...] BUNCREARATIO 30 01/01/2020 PTH 72.57 (A) 04/01/2019 [id number] 25.2 (L) 12/27/2019 CALCIUM 8.6 01/01/2020 PHOS [...] been following up with ENEDINA mena in [place]. He has unrecovered acute kidney injury and a higher baseline creatinine. At this time there is no clinical uremia, refractory volume overload, refractory acidosis, refractory hyperkalemia and no urgent indication of starting ORDER CHECKER PACKER PROCESSER. Neither is there an indication for diagnostic [...] Incentive spirometry. Transfuse Prn. No indication for ORDER CHECKER PACKER PROCESSER for now. Await renal recovery. On discharge [...] was completed later after rounds. Dictation software, Thingies, was used which may contain error for [...] but not limited to potential need for ORDER CHECKER PACKER PROCESSER . This is a patient with multiple [...] [facility] Inpatient W[facility] Ostomy Care [phone] 01/01/2020 11:46 AM Chai, Savana Irving RN [...] BUNCREARATIO 25 12/31/2019 PTH 72.57 (A) 04/01/2019 [id number] 25.2 (L) 12/27/2019 CALCIUM 8.5 12/31/2019 PHOS [...] been following up with ENEDINA mena in [place]. He has unrecovered acute kidney injury and a higher baseline creatinine. At this time there is no clinical uremia, refractory volume overload, refractory acidosis, refractory hyperkalemia and no urgent indication of starting ORDER CHECKER PACKER PROCESSER. Neither is there an indication for diagnostic [...] Incentive spirometry. Transfuse Prn. No indication for ORDER CHECKER PACKER PROCESSER for now. Await renal recovery. I discussed [...] was completed later after rounds. Dictation software, Thingies, was used which may contain error for [...] but not limited to potential need for ORDER CHECKER PACKER PROCESSER . This is a patient with multiple [...] see wound RN note for treatment. [facility] ed, continue wound care at swing bed, send with extra dressing supplies. *Metabolic bone disorder: elevated PTH and phosphorus. Treatment per package delivery driver (see thei r note). Subjective No chest [...] who was admitted as a transfer from [facility] due t o a mechanical fall [...] and he was accepted by [facility] Swing bed [facility] in [place], [place] for rehabilitation purposes. Hospital stay was [...] Medications Current Facilty-Administered PRN Medications Ordered in [facility] Medication Dose Route [...] but remains week, he is accepted at [facility] in [place] with discharge plans tomorrow for rehabilit ation [...] discharge plans to Sw[facility] in [facility] tomorrow. DVT prophylaxis with SCD's only due to risks of bleeding. Discharge plans tomorrow to [facility] in [place], [place] for rehabi litation. Called his daughter Ms. Huerta and left a message with updated information at phone number [phone]. Jerry Chino MD 12/30/2019 turgill, DALILA Keys - 12/30/2019 12:35 PM PDTFormatting of this note might be different from the [facility]: Gastroenterology Consult Progress Note Hospital Day: LOS: 9 days SUBJECTIVE Patient Summary: This is an 89-year-old male with multiple medical problems and a his tory of hypertension, diabetes, CKD stage III who was transferred from [facility] t o a fall and he [...] Infusions dextrose 10% pantoprazole 8 mg/hr (12/30/19 0948) PRN Medications acetaminophen OR acetaminophen OR acetaminophen, [...] physician, the nurse, the anesthesiologist and the metal technician in the pre-procedure area in the [...] successful. Thermal coagulation with Gold probe 7 Cuban x 5 pulses was successful with hemostasis. [...] ll with any questions. Florina Cantu PA-C [facility] Gastroenterology 12/30/2019 Associated attestation - Lamont Hernandez MD - 12/31/2019 2:17 PM [id number] male with GI bleeding due to duodenal ulcer with visible vessel. The ulcer and visible vessel were tr eated with injection and gold probe thermal coagulation. The patient was seen and examined by me personally. The case was discussed with the physician's hospital medical assistant and I agree with the assessment and p tim as outlined in the note. Continue PPI IV infusion for total of 72 hours and then when patient is discharged he must be on twice daily PPI for 8 weeks. Resume Eliquis in 1 week. Lamont Hernandez MD Gastroenterology staffPeoriaMarycarmen, [facility] - 12/30/2019 11:05 AM PDTFormatting of [...] status. Disposition: Plan to discharge tomorrow, to [facility], once medically stable and cleared by [...] BUNCREARATIO 23 12/30/2019 PTH 72.57 (A) 04/01/2019 [id number] 25.2 (L) 12/27/2019 CALCIUM 8.6 12/30/2019 PHOS [...] been following up with ENEDINA mena in [place]. That had improved with nonoliguric state but now seems to have leveled off at around 3 and this may be reflection of unrecovered acute kidney injury and a higher baseline creatinine. At this time there is no clinical uremia, refractory volume overload, refractory acidosis, refractory hyperkalemia and no urgent indication of starting ORDER CHECKER PACKER PROCESSER. Neither is there an indication for diagnostic [...] Incentive spirometry. Transfuse Prn. No indication for ORDER CHECKER PACKER PROCESSER for now. Await renal recovery. I discussed [...] was completed later after rounds. Dictation software, Thingies, was used which may contain error for [...] but not limited to potential need for ORDER CHECKER PACKER PROCESSER . This is a patient with multiple [...] BUNCREARATIO 30 12/29/2019 PTH 72.57 (A) 04/01/2019 [id number] 25.2 (L) 12/27/2019 CALCIUM 8.7 12/29/2019 PHOS [...] been following up with ENEDINA mena in [place]. That seems to be improving with nonoliguric state and small reduction in creatinine. At this time there is no clinical uremia, refractory volume overload, refractory acidosis, refractory hyperkalemia and no urgent indication of starting ORDER CHECKER PACKER PROCESSER. Neither is there an indication for diagnostic [...] Incentive spirometry. Transfuse Prn. No indication for ORDER CHECKER PACKER PROCESSER for now. Await renal recovery. I discussed [...] was completed later after rounds. Dictation software, Thingies, was used which may contain error for [...] but not limited to potential need for ORDER CHECKER PACKER PROCESSER . acetaminophen 1,000 mg Oral 3 times [...] who was admitted as a transfer from [facility] due t o a mechanical fall [...] and he was accepted by [facility] Swing bed [facility] in [place], [place] for rehabilitation purposes. Hospita l stay [...] dextrose 10% (D10W) infusion Intravenous Continuous PRN Anedrs Soto PA-C docusate sodium (COLACE) capsule 100 [...] by [facility] in [place], [place] with discharge plans early next weeks [...] another 1 to 2 to SNF in [place], [place] if remains stable and improve d. Called his daughter Ms. Huerta and updated her about plans at phone number [phone]. Jerry Chino MD 12/29/2019 Norma Sarabia RN [...] BUNCREARATIO 28 12/28/2019 PTH 72.57 (A) 04/01/2019 [id number] 25.2 (L) 12/27/2019 CALCIUM 8.5 12/28/2019 PHOS [...] been following up with ENEDINA mena in [place]. That seems to be improving with nonoliguric state and small reduction in creatinine. At this time there is no clinical uremia, refractory volume overload, refractory acidosis, refractory hyperkalemia and no urgent indication of starting ORDER CHECKER PACKER PROCESSER. Neither is there an indication for diagnostic [...] Incentive spirometry. Transfuse Prn. No indication for ORDER CHECKER PACKER PROCESSER for now. Await renal recovery. I discussed [...] was completed later after rounds. Dictation software, Thingies, was used which may contain error for [...] but not limited to potential need for ORDER CHECKER PACKER PROCESSER . acetaminophen 1,000 mg Oral 3 times [...] DALILA Peralta has created this entry using Citydeal[employer][email or web address] Recognition [employer] and SpokenLayer macros. The entry has been reviewed and [...] who was admitted as a transfer from [facility] due t o a mechanical fall [...] and he was accepted by [facility] Swing bed [facility] in [place], [place] for rehabilitation purposes. Hospita l stay [...] Medications Current Facilty-Administered PRN Medications Ordered in [facility] Medication Dose Route [...] making slow progress, he is accepted by [facility] in [place], [place] with discharge plans possib ly early [...] 1 to 2 to a SNF in [place], [place] when renal functions are st able and cleared by Nephrology services. Also called his daughter Ms. Huerta and updated her a bout plans at phone number [phone]. Jerry Chino MD 12/28/2019 hazal Robbins COTA [...] been following up with ENEDINA mena in [place]. That seems to be improving with nonoliguric state and small reduction in creatinine. At this time there is no clinical uremia, refractory volume overload, refractory acidosis, refractory hyperkalemia and no urgent indication of starting ORDER CHECKER PACKER PROCESSER. Neither is there an indication for diagnostic [...] Incentive spirometry. Transfuse Prn. No indication for ORDER CHECKER PACKER PROCESSER for now. Await renal recovery. I discussed [...] was completed later after rounds. Dictation software, Thingies, was used which may contain error for [...] but not limited to potential need for ORDER CHECKER PACKER PROCESSER . acetaminophen 1,000 mg Oral 3 times [...] status. Disposition: Plan to discharge Sukhdev, to [facility], once medically stable a nd cleared [...] Net -400 ml . Treatment plan: per package delivery driver; slowly improving. *Blood pressure: labile; See VS [...] disorder: elevated PTH and phosphorus. Treatment per package delivery driver (see thei r note). Subjective No chest [...] who was admitted as a transfer from [facility] due t o a mechanical fall [...] Medications Current Facilty-Administered PRN Medications Ordered in [facility] Medication Dose Route [...] trength and mobility. He is accepted by [facility] in [place], [place] and discharge is delayed due to [...] to 3 days to a SNF in [place], [place] when renal functions a re stable [...] who was admitted as a transfer from [facility] due t o a mechanical fall [...] Medications Current Facilty-Administered PRN Medications Ordered in [facility] Medication Dose Route [...] placement is recommended. 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 Huerta and the at phone number [phone] Code Status: Full Code Regino Greene MD [...] status. Disposition: Plan to discharge Monday, to [facility], once medically stable a nd cleared [...] lab follow-up and treatment per hospitalist and package delivery driver. *Blood pressure: hypotensive; See VS for BP trending. 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 Current Weight: 63.5 kg (140 lb) [...] Dr. Huerta and the at phone number [phone] Code Status: Full Code Regino Greene MD [...] any conversation with family members today. Inpatient regulatory services consultant. Code Status: Full Code Regino Greene [...] sodium chloride 0.9% 100 mL/hr at 12/22/19 2103 OBJECTIVE Vital Signs: Vitals with Comments 12/22/2019 [...] and renal function. Imani ent sees Dr. aJde. Disposition: Yet to be seen how he [...] GAMMA NAIL; Surgeon: Melquiades Baez DO; Location: [facility] MAIN OR OTHER SURGICAL HISTORY CATARACT [...] this chart may have been created with Arnica recognition software. Occasi onal wrong-word or sound-alike substitutions may have occurred due to the inherent castañeda itations of voice recognition software. Please read the chart carefully and recognize, using context, where these substitutions have occurred Julián Urbina MD - 12/21/2019 7:38 PM PDTFormatting of this note m ight be different from the original. [facility] Service: Hospitalist History and Physical Date of Admission: Dec 21 2019 [facility] Reason for Admission: Right comminuted intertrochanteric fracture of the hip CHIEF COMPLAINT: Mechanical fall tripped over side curb landed on the right hip area right hip pain today HISTORY OF PRESENT ILLNESS The patient is a 89 y.o. male Transfer from [facility] after fall with right hip fracture with multiple comor bidities being on Eliquis as well requested for higher level of care to transfer to [facility] h orthopedic 89 years old gentleman fall at this morning mechanical fall tripped on the curb and result ed in right hip pain [facility] visited x-ray found to have a [...] and LFT Orthopedic on-call was consulted from [facility] and requested to transfer for higher level of care At [facility] with multiple comorbidities REVIEW OF SYSTEMS [...] transfer lab WBC 5.9 hb10.2 hct 30.5 wfg086 potassium 5.1 Bun 85 cre 2.6 Co2-24 [...] as per stated reason Chronic A. fib [id number]- VASC score is 6- Hold Eliquis for [...] Old records reviewed on EMR. Dictation software, Thingies, used which may contain error for similar sounding words even af ter review. Personal communication requested for any clarification. Disposition: inpatient Code Status: FULL CODE Primary Care Physician: MD Julián Nobles MD 12/21/2019 documented in thi s encounter Consult Notes Lamont Hernandez MD - 12/29/2019 10:26 AM PDT Gastroenterology Consultation: [facility] 12/29/2019 Andres Jones Ramirez 89 y.o. [id number] History of present illness: Gastroenterology consultation is requested for evaluation of GI bleeding with melena. This is an 89-year-old male with multiple medical problems and a history of hypertension, d iabetes, CKD stage III who was transferred from [facility] due to a fall and he [...] GAMMA NAIL; Surgeon: Melquiades Baez DO; Location: [facility] MAIN OR OTHER SURGICAL HISTORY CATARACT [...] file Gets together: Not on file Attends [employer] service: Not on file Active member of [...] this chart may have been created with Thingies voice recognition software. Occasi onal wrong-word or [...] III with baseline creatinine 1.7 admitted to [facility] on December 20 after a [...] Tristan Gage at the nephrology clinic in [place]. The patien t is poor historian and does not recall seeing a package delivery driver in the past. He also not awar [...] Order(s): IP CONSULT TO WOUND OSTOMY NURSE [facility] Service: Wound Care Consult [...] Elizabeth MD - 12/24/2019 11:33 AM PDT [facility] Service: Physicial Medicine & Rehab [...] curb and resulted in right hip pain [facility] visited x-ray found to have a [...] diabetes, and cirrhosis He was transferred to [facility], and is now s/p ORIF [...] GAMMA NAIL; Surgeon: Melquiades Baez DO; Location: [facility] MAIN OR OTHER SURGICAL HISTORY CATARACT [...] AM PDTAssociated Order(s): PROVIDER TO PROVIDER CONSULT [facility] Orthopaedic and Sports Medicine Service: [...] hip f racture. He was transferred to [facility] for concerns with other comor [...] surgery. He will be taken for a [facility] hip cephalo-medullary nail.The risks and benefits [...] limb(s)): [x] OT Evaluation & Treat [] OSCILLOGRAPH TECHNICIAN Evaluation Treat Wound/Skin Care: [] Follow current recommendations of the wound team for treatment. [] Wound Vac management per nursing protocol. Labs/Imaging: [] PT/INR: Frequency per SNF provider Goal INR: [] Fingerstick glucose check before meals and bedtime and PRN [] Labs: Follow up: Melquiades Baez DO [address] [facility] [id number] In 2 weeks For post op care Barbara Gilman MD [address] [place] [address] In 1 week I have advised [...] Regino Greene MD, certify that post hospital fdc care is medically necessa ry on a [...] HIGH Current Discharge Plan Anticipated Discharge Disposition: fdc facility Expected DC Date: 12/31/2019 Barriers to Discharge: placement Steps Taken Toward Discharge: Attended morning rounds, called [facility] and provided upd ate of Pt Next Steps: d/c to [facility] Community Support Services Current Outpt/Agency/Support Groups: none Community Agency Name: none Other Resources: Discharge Transportation Transportation Needs: agency transportation Notes: Pt on course to discharge to [facility] tomorrow. Idalia brown d with [facility] team and they are accepting Pt tomorrow if Pt is medically ready. Cm will follow for d/c needs that arise. Electronically signed: Ja Marcus RN 12/31/2019 3:54 PM lan of Andrez Perry PTA - 12/31/2019 2:04 PM PDT Physical Therapy Treatment Note Recommended discharge disposition: fdc facility Post discharge physical therapy recommendation: Equipment [...] LTG Status continued at 12/30/2019 0805 LTG [place] Level supervised at 12/30/2019 08 LTG Assistive Device none at 12/30/2019 0805 All Transfers Goal Most Recent Value LTG Status new at 12/30/2019804 LTG [place] Level minimum assist (75% patient effort) at 12/30/2019804 LTG Assistive Device 2 wheeled walker (FWW) at 12/30/2019804 Gait Goal Most Recent Value LTG Status new at 12/30/2019804 LTG [place] Level minimum assist (75% patient effort) at 12/30/2019804 LTG Assistive Device 2 wheeled walker (FWW) at 12/30/2019804 LTG Distance (feet) 50ft at 12/30/2019 08 PT Time Calculation Individual Start Time: 1307 Individual Stop Time: 1320 Individual Total Time: 13 PT Total Treatment Time: 13 lan of [facility] - Liz Cabral RN - 12/31/2019 [...] concerns. Aware of plan for discharge to [facility] tomorrow and has no concerns regarding [...] Physical Therapy Treatment Note Recommended discharge disposition: fdc facility Post discharge physical therapy recommendation: Equipment [...] Bed Mobility Sit to Supine, Level of Collingsworth: moderate assist (50% patient effort) Safety Issues: decreased use of legs for bridging/pushing Impairments: strength decreased Transfers Chair-Bed, Level of Coll[place]: moderate assist (50% patient effort) [id number]-Hmerj-Yzs, Assistive Device: gait belt Sit-Stand, Level of [place]: moderate assist (50% patient effort) Stand-Sit, Level of [place]: moderate assist (50% patient effort) [id number]-Rwnrg-Mif, Assistive Device: gait belt Safety Issues: balance decreased during turns, step length decreased Impairments: strength decreased Goals Reflects last filed data and may be from multiple contributors. All Bed Mobility Goal Most Recent Value LTG Status continued at 12/30/2019 0805 LTG [place] Level supervised at 12/30/2019 0805 LTG Assistive Device none at 12/30/2019 0805 All Transfers Goal Most Recent Value LTG Status new at 12/30/2019 0805 LTG [place] Level minimum assist (75% patient effort) at 12/30/2019 0805 LTG Assistive Device 2 wheeled walker (FWW) at 12/30/2019 0805 Gait Goal Most Recent Value LTG Status new at 12/30/2019 0805 LTG [place] Level minimum assist (75% patient effort) at [...] Bed in low position, gait belt available, teacher ballet socks on. Problem: Skin Injury Risk Increased [...] Physical Therapy Re-Assessment Note Recommended discharge disposition: fdc facility Post discharge physical therapy recommendation: ongoing low intensity therapy, will benefi t from structured setting Equipment Recommendations: (TBD) Barriers to community-based discharge Physical Impairment, Pain, and Fall risk Planned Interventions: balance training, bed mobility training, gait training, home exercis e program, manual therapy techniques, patient/family education, ROM (Range of Motion), stair training, strengthening, stretching, russian ball techniques, wheelchair management/propulsio n training Recommended [...] Documentation: sit to/from stand Sit-Stand, Level of Collingsworth: moderate assist (50% patient effort) Stand-Sit, Level of [place]: moderate assist (50% patient effort) Pxz-Kvzwk-Xcy, Assistive Device: other (see comments)(platform walker ) Maintain Weight Bearing Status: able to maintain weight bearing status Safety Issues: balance decreased during turns Impairments: pain, strength decreased, impaired balance Gait Gait Comments: ambulated with shuffled steps and decreased quita Level of Collingsworth: moderate assist (50% patient effort) Assistive Device: [...] LTG Status continued at 12/30/2019 08 LTG [place] Level supervised at 12/30/2019 08 LTG Assistive Device none at 12/30/2019 0805 All Transfers Goal Most Recent Value LTG Status new at 12/30/2019 0805 LTG [place] Level minimum assist (75% patient effort) at 12/30/2019 0805 LTG Assistive Device 2 wheeled walker (FWW) at 12/30/2019 0805 Gait Goal Most Recent Value LTG Status new at 12/30/2019 0805 LTG [place] Level minimum assist (75% patient effort) at [...] Physical Therapy Treatment Note Recommended discharge disposition: fdc facility Post discharge physical therapy recommendation: Equipment [...] Bed Mobility Supine to Sit, Level of Coll[place]: moderate assist (50% patient effort) Sit to Supine, Level of [place]: moderate assist (50% patient effort) Safety Issues: decreased use of legs for bridging/pushing Impairments: strength decreased Transfers Sit-Stand, Level of [place]: moderate assist (50% patient effort) Stand-Sit, Level of [place]: moderate assist (50% patient effort) Goh-Tjtjk-Loo, Assistive Device: other (see comments)(UP walker) Safety Issues: balance decreased during turns, step length decreased Impairments: strength decreased Gait Level of Collingsworth: moderate assist (50% patient effort) Assistive Device: [...] LTG Status new at 12/23/2019 1600 LTG [place] Level supervised at 12/23/2019 1600 LTG Assistive Device none at 12/23/2019 1600 All Transfers Goal Most Recent Value LTG Status new at 12/23/2019 1600 LTG [place] Level modified independent at 12/23/2019 1600 LTG Assistive Device 2 wheeled walker (FWW) at 12/23/2019 1600 Gait Goal Most Recent Value LTG Status new at 12/23/2019 1600 LTG [place] Level stand by assist at 12/23/2019 1600 [...] upon request. 12 :36 PM PDTPlan of [facility] - Andrez Llamas PTA - 12/27/2019 12:05 [...] Bed Mobility Supine to Sit, Level of [place]: moderate assist (50% patient effort) Safety Issues: decreased use of legs for bridging/pushing Impairments: strength decreased Transfers Sit-Stand, Level of [place]: moderate assist (50% patient effort) Stand-Sit, Level of [place]: moderate assist (50% patient effort) Ydm-Jrvrz-Oir, Assistive Device: other (see comments)(UP walker) Safety Issues: balance decreased during turns, step length decreased Impairments: strength decreased Exercises Bed exercises: ankle pumps, quad sets, heel slides, hip abduction/adduction, glut sets Goals Reflects last filed data and may be from multiple contributors. All Bed Mobility Goal Most Recent Value LTG Status new at 12/23/2019 1600 LTG [place] Level supervised at 12/23/2019 1600 LTG Assistive Device none at 12/23/2019 1600 All Transfers Goal Most Recent Value LTG Status new at 12/23/2019 1600 LTG [place] Level modified independent at 12/23/2019 1600 LTG Assistive Device 2 wheeled walker (FWW) at 12/23/2019 1600 Gait Goal Most Recent Value LTG Status new at 12/23/2019 1600 LTG [place] Level stand by assist at 12/23/2019 1600 [...] handled ghada e horn, long handled sponge, hat designer, sock aide Barriers to community-based discharge: Level [...] x1, rest break inbetween set d/t fatigue. [place] for proper tech during ex able to continue seq uence intitially however would require cueing/assist later on in reps. Goals Reflects last filed data and may be from multiple contributors. LB Dressing Goal Most Recent Value LTG Status new at 12/24/2019 0953 LTG [place] Level moderate assist (50% patient effort), verbal cues required at 12/23 0953 LTG Adaptive Equipment hat designer, shoe horn, long handled, sock-aid [AE as needed] at 2019 0953 Toilet Transfer Goal Most Recent Value LTG Status new at 12/24/2019 0953 LTG [place] Level minimum assist (75% patient effort), verbal [...] Bed Mobility Supine to Sit, Level of [place]: moderate assist (50% patient effort) Sit to Supine, Level of [place]: moderate assist (50% patient effort) Safety Issues: decreased use of legs for bridging/pushing Impairments: strength decreased Transfers Sit-Stand, Level of [place]: moderate assist (50% patient effort) Stand-Sit, Level of [place]: moderate assist (50% patient effort) Ruj-Ogait-Bzr, Assistive Device: other (see comments)(Up walker) Safety Issues: balance decreased during turns, step length decreased Impairments: strength decreased Gait Level of [place]: moderate assist (50% patient effort) Assistive Device: [...] LTG Status new at 12/23/2019 1600 LTG [place] Level supervised at 12/23/2019 1600 LTG Assistive Device none at 12/23/2019 1600 All Transfers Goal Most Recent Value LTG Status new at 12/23/2019 1600 LTG [place] Level modified independent at 12/23/2019 1600 LTG Assistive Device 2 wheeled walker (FWW) at 12/23/2019 1600 Gait Goal Most Recent Value LTG Status new at 12/23/2019 1600 LTG [place] Level stand by assist at 12/23/2019 1600 [...] Bed Mobility Supine to Sit, Level of [place]: moderate assist (50% patient effort) Safety Issues: decreased use of legs for bridging/pushing Impairments: strength decreased Transfers Sit-Stand, Level of [place]: moderate assist (50% patient effort) Stand-Sit, Level of [place]: moderate assist (50% patient effort) Ynm-Flzhp-Kun, Assistive Device: other (see comments)(Up walker) Safety Issues: balance decreased during turns, step length decreased Impairments: strength decreased Gait Level of [place]: moderate assist (50% patient effort) Assistive Device: [...] LTG Status new at 12/23/2019 1600 LTG [place] Level supervised at 12/23/2019 1600 LTG Assistive Device none at 12/23/2019 1600 All Transfers Goal Most Recent Value LTG Status new at 12/23/2019 1600 LTG [place] Level modified independent at 12/23/2019 1600 LTG Assistive Device 2 wheeled walker (FWW) at 12/23/2019 1600 Gait Goal Most Recent Value LTG Status new at 12/23/2019 1600 LTG [place] Level stand by assist at 12/23/2019 1600 [...] HIGH Current Discharge Plan Anticipated Discharge Disposition: fdc facility Expected DC Date: 12/30/2019 Barriers to Discharge: placement Steps Taken Toward Discharge: Attended morning rounds Next Steps: d/c to [facility] Swing Bed Community Support Services Current Outpt/Agency/Support Groups: none Community Agency Name: none Other Resources: Discharge Transportation Transportation Needs: agency transportation Notes: Pt not medically ready for discharge. Cm called Idalia CM at [facility] and updat ed her on Pt progress. Pt may be ready for d/c Monday. Cm will continue to follow for placem ent needs. Electronically signed: Ja Marcus RN 12/26/2019 11:46 AM lan of [facility] t - 12/26/2019 10:00 AM PDT [...] Bed Mobility Sit to Supine, Level of [place]: maximal assist (25% patient effort), verbal cues requ ired Safety Issues: decreased use of legs for bridging/pushing, decreased use of arms for pushin g/pulling Impairments: strength decreased, pain, impaired balance Transfers Sit-Stand, Level of [place]: moderate assist (50% patient effort), verbal cues require d Stand-Sit, Level of [place]: moderate assist (50% patient effort), verbal cues require d Ogb-Ngmar-Pkk, Assistive Device: 2 wheeled walker (FWW), gait belt Safety Issues: sequencing ability decreased, balance decreased during turns Gait Level of [place]: moderate assist (50% patient effort) Assistive Device: [...] LTG Status new at 12/23/2019 1600 LTG [place] Level supervised at 12/23/2019 1600 LTG Assistive Device none at 12/23/2019 1600 All Transfers Goal Most Recent Value LTG Status new at 12/23/2019 1600 LTG [place] Level modified independent at 12/23/2019 1600 LTG Assistive Device 2 wheeled walker (FWW) at 12/23/2019 1600 Gait Goal Most Recent Value LTG Status new at 12/23/2019 1600 LTG [place] Level stand by assist at 12/23/2019 1600 [...] HIGH Current Discharge Plan Anticipated Discharge Disposition: fdc facility Expected DC Date: 12/27/2019 Barriers to Discharge: placement Steps Taken Toward Discharge: Attended rounds Next Steps: d/c to [facility] Community Support Services Current Outpt/Agency/Support Groups: none Community Agency Name: none Other Resources: Discharge Transportation Transportation Needs: agency transportation Notes: Pt not medically ready for discharge. Cm received call from [facility] from [facility]. Pt has been accepted but [...] (Range of Motion), stair training, strengthening, stretching, russian ball techniques, w heelchair management/propulsion training Recommended [...] HOB elevated Supine to Sit, Level of [place]: moderate assist (50% patient effort), verbal cues req uired Safety Issues: decreased use of legs for bridging/pushing, decreased use of arms for pushin g/pulling Impairments: strength decreased, pain, impaired balance Transfers Additional Documentation: sit to/from stand Chair-Bed, Level of [place]: moderate assist (50% patient effort), verbal cues require d Hmc-Tagwe-Awg, Assistive Device: 2 wheeled walker (FWW) Sit-Stand, Level of [place]: moderate assist (50% patient effort), verbal cues require d Stand-Sit, Level of [place]: moderate assist (50% patient effort), verbal cues require d Lmf-Unmbq-Qkm, Assistive Device: 2 wheeled walker (FWW), gait belt Maintain Weight Bearing Status: able to maintain weight bearing status Safety Issues: sequencing ability decreased, balance decreased during turns Impairments: impaired balance, coordination impaired, pain, decreased flexibility Gait Gait Comments: 4 steps to chair Level of [place]: moderate assist (50% patient effort) Assistive Device: [...] LTG Status new at 12/23/2019 1600 LTG [place] Level supervised at 12/23/2019 1600 LTG Assistive Device none at 12/23/2019 1600 All Transfers Goal Most Recent Value LTG Status new at 12/23/2019 1600 LTG [place] Level modified independent at 12/23/2019 1600 LTG Assistive Device 2 wheeled walker (FWW) at 12/23/2019 1600 Gait Goal Most Recent Value LTG Status new at 12/23/2019 1600 LTG [place] Level stand by assist at 12/23/2019 1600 [...] long handled shoe horn, long handled sponge, hat designer, sock aide(BSC (?)) Barriers to community-based discharge [...] seated in the recliner Grooming, Level of [place]: supervised Assistive Device: none Grooming Assess/Train, Position: sitting Bed Mobility Additional Documentation: supine to/from sit Assistive Device: HOB elevated, bed rails Sit to Supine, Level of [place]: maximal assist (25% patient effort), verbal cues [...] stand, bed to/from chair Chair-Bed, Level of [place]: moderate assist (50% patient effort), verbal cues require d Byb-Sxewp-Rdo, Assistive Device: gait belt Sit-Stand, Level of [place]: moderate assist (50% patient effort), verbal cues require d Stand-Sit, Level of [place]: moderate assist (50% patient effort), verbal cues require d Jek-Volqi-Kpw, Assistive Device: 2 wheeled walker (FWW), gait [...] LTG Status new at 12/24/2019 0953 LTG [place] Level moderate assist (50% patient effort), verbal cues required at 12/23 0953 LTG Adaptive Equipment hat designer, shoe horn, long handled, sock-aid [AE as needed] at 2019 0953 Toilet Transfer Goal Most Recent Value LTG Status new at 12/24/2019 0953 LTG [place] Level minimum assist (75% patient effort), verbal [...] HOB elevated Supine to Sit, Level of [place]: moderate assist (50% patient effort), verbal cues req uired Safety Issues: decreased use of arms for pushing/pulling, decreased use of legs for bridgin g/pushing Impairments: decreased flexibility, pain, impaired balance Transfers Additional Documentation: sit to/from stand Sit-Stand, Level of [place]: minimal assist (75% patient effort) Stand-Sit, Level of [place]: minimal assist (75% patient effort) Ico-Bnanu-Oko, Assistive Device: 2 wheeled walker (FWW) Maintain Weight Bearing Status: able to maintain weight bearing status Safety Issues: sequencing ability decreased Impairments: decreased flexibility, impaired balance, pain Gait Gait Comments: side stepping to recliner Level of [place]: minimal assist (75% patient effort) Assistive Device: [...] LTG Status new at 12/23/2019 1600 LTG [place] Level supervised at 12/23/2019 1600 LTG Assistive Device none at 12/23/2019 1600 All Transfers Goal Most Recent Value LTG Status new at 12/23/2019 1600 LTG [place] Level modified independent at 12/23/2019 1600 LTG Assistive Device 2 wheeled walker (FWW) at 12/23/2019 1600 Gait Goal Most Recent Value LTG Status new at 12/23/2019 1600 LTG [place] Level stand by assist at 12/23/2019 1600 [...] discharge planning concerns Services Anticipated at Discharge: fdc facility Equipment Used at Home: cane, straight, single point, 2 wheeled walker (FWW) Equipment Needed after Discharge: walker, standard Durable Medical Equipment Provider: Pharmacy/Medication Needs: other (see comments)([facility] in [place], [place]) Transportation Needs: agency transportation Initial Plan Anticipated Discharge Disposition: fdc facility Expected DC Date: other (see comments)(SNF [...] stated that he would like to go [facility] Swi ng bed if needed before going home. Cm called [facility] and received contact [facility] - Idalia Garduno [phone]. Cm sent referral to [facility]. Pt stated that Deanna (daughter) edgardo harmon [...] (Range of Motion), stair training, strengthening, stretching, russian ball techniques, wheelchair management/propulsio n training Recommended [...] HOB elevated Supine to Sit, Level of [place]: moderate assist (50% patient effort) Sit to Supine, Level of [place]: maximal assist (25% patient effort) Safety Issues: decreased use of arms for pushing/pulling, decreased use of legs for bridgin g/pushing Impairments: decreased flexibility, impaired balance, pain Transfers Additional Documentation: sit to/from stand Sit-Stand, Level of [place]: minimal assist (75% patient effort) Stand-Sit, Level of [place]: minimal assist (75% patient effort) Vbc-Esezd-Uko, Assistive Device: 2 wheeled walker (FWW) Maintain [...] LTG Status new at 12/23/2019 1600 LTG [place] Level supervised at 12/23/2019 1600 LTG Assistive Device none at 12/23/2019 1600 All Transfers Goal Most Recent Value LTG Status new at 12/23/2019 1600 LTG [place] Level modified independent at 12/23/2019 1600 LTG Assistive Device 2 wheeled walker (FWW) at 12/23/2019 1600 Gait Goal Most Recent Value LTG Status new at 12/23/2019 1600 LTG [place] Level stand by assist at 12/23/2019 1600 [...] DO - 12/22/2019 10:34 AM [facility]: Orthopaedic [...] 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 EKG and Ches [...] day shift and every two hours on slot shift manager to monitor and medicate appropriately. 2. Staff [...] [address] | | | | | | [place] [address] | | | | | | [phone] | | | | | | | | +--------+ + + + + | 03/24/ | Hospital | | Anna Edouard, | Esophagitis | 2019 | Encounter | | MD [address] | | | | | | [place] [address] | | | | | | [phone] | | | | | | | | +--------+ + + + + | 03/24/ | Surgery | | Anna Edouard | EGD | | 2019 | | | [address] | | | | | | [place] [address] | | | | | | [phone] | | | | | | | | +--------+ + + + + | 03/31/ | Office | Orthopedic Surgery | Melquiades Baez | | | 2019 | Visit | | DO [address] | | | | | | [place], | | | | | | [place] [address] | | | | | | [phone] | | | | | | | | +--------+ + + + + | 04/21/ | Office | Nephrology | Isiah Jade MD | | 2019 | Visit | | [address] | | | | | | [address] | | | | | | [address] | | | | | | | | +--------+ + + + + | 05/07/ | Office | Cardiology | Charlee Oswald | | | 2019 | Visit | | [address] | | | | | | [address] | | | | | | [place] [address] | | | | | | [phone] | | | | | | | [...] + +--------+ + + + | *TERMED* IA UPPER GI | Routin | 12/29/2019 | [...] +---+--------+ + +--------+ +---+ + | POC NATHANAEL CACERES, | Routin [...] | | | POC | performed at [facility];[address] | | LABORATORY | | | | [address];[place], [place] | | | | | | [address] | | | | + + + + + + + + | Specimen | + + | | + + + + + + + | Performing | Address | City/State/Zipcode | Phone Number | | Organization | | | | + + + + + | [facility] | [address] | [place] [address] | [phone] | + + + + + POC [...] | | | POC | performed at [facility];[address] | | LABORATORY | | | | [address];[place] | | | | | | [address] | | | | + + + + + + + + | Specimen | + + | | + + + + + + + | Performing | Address | City/State/Zipcode | Phone Number | | Organization | | | | + + + + + | [facility] | [address] | [place] [address] | [phone] | + + + + + Basic [...] 8.6 | 8.5 - 10.5 | [facility] | | | | | mg/dL | LABORATORY | | + + + + + + | Estimated | 23 (L)Comment: GFR <60: | >60 | [facility] | | | GFR | CHRONIC [...] | | | | | performed at [facility];[address] | | | | | | [facility];[place], [place] | | | | | | [address] | | | | + + + + + + + + | Specimen | + + | Blood | + + + + + + + | Performing | Address | City/State/Zipcode | Phone Number | | Organization | | | | + + + + + | [facility] | [address] | [place] [address] | [phone] | + + + + + CBC [...] Testing | 0.00 - 0.10 | [facility] | | | Absolute | performed at [facility];[address] | K/uL | LABORATORY | | | | [address];[place] | | | | | | [address] | | | | + + + + + + + + | Specimen | + + | Blood | + + + + + + + | Performing | Address | City/State/Zipcode | Phone Number | | Organization | | | | + + + + + | [facility] | [address] | [place] [address] | [phone] | + + + + + POC [...] | | | POC | performed at [facility];[address] | | LABORATORY | | | | [address];[place], [place] | | | | | | [address] | | | | + + + + + + + + | Specimen | + + | | + + + + + + + | Performing | Address | City/State/Zipcode | Phone Number | | Organization | | | | + + + + + | [facility] | [address] | [place] [address] | [phone] | + + + + + POC [...] | | | POC | performed at [facility];[address] | | LABORATORY | | | | [address];[place] | | | | | | [address] | | | | + + + + + + + + | Specimen | + + | | + + + + + + + | Performing | Address | City/State/Zipcode | Phone Number | | Organization | | | | + + + + + | [facility] | [address] | [place] [address] | [phone] | + + + + + POC Glucose (12/31/2019 12:50 PM PDT) + + + + + + | Component | Value | Ref Range | Performed | Pathologist | | | | | At | Signature | + + + + + + | Glucose, | 239 (H)Comment: Testing | 65 - 99 mg/dL | [facility] | | | POC | performed at [facility];[address] | | LABORATORY | | | | [address];[place] | | | | | | [address] | | | | + + + + + + + + | Specimen | + + | | + + + + + + + | Performing | Address | City/State/Zipcode | Phone Number | | Organization | | | | + + + + + | [facility] | [address] | [place] [address] | [phone] | + + + + + POC Glucose (12/31/2019 6:36 AM PDT) + + + + + + | Component | Value | Ref Range | Performed | Pathologist | | | | | At | Signature | + + + + + + | Glucose, | 154 (H)Comment: Testing | 65 - 99 mg/dL | [facility] | | | POC | performed at [facility];[address] | | LABORATORY | | | | [address];[place], [place] | | | | | | [address] | | | | + + + + + + + + | Specimen | + + | | + + + + + + + | Performing | Address | City/State/Zipcode | Phone Number | | Organization | | | | + + + + + | [facility] | [address] | [place] [address] | [phone] | + + + + + Basic [...] | | | | | | [facility], | | | | | | [place] [address] | | | | + + + + + + + + | Specimen | + + | Blood | + + + + + + + | Performing | Address | City/State/Zipcode | Phone Number | | Organization | | | | + + + + + | [facility] | [address] | [place] [address] | [phone] | + + + + + CBC [...] Testing | 0.00 - 0.10 | [facility] | | | Absolute | performed at [facility], [address] | K/uL | LABORATORY | | | | [address], | | | | | | [place] [address] | | | | + + + + + + + + | Specimen | + + | Blood | + + + + + + + | Performing | Address | City/State/Zipcode | Phone Number | | Organization | | | | + + + + + | [facility] | [address] | [place] [address] | [phone] | + + + + + POC [...] | | | POC | performed at [facility];[address] | | LABORATORY | | | | [address];[place] | | | | | | [address] | | | | + + + + + + + + | Specimen | + + | | + + + + + + + | Performing | Address | City/State/Zipcode | Phone Number | | Organization | | | | + + + + + | [facility] | [address] | [place] [address] | [phone] | + + + + + POC [...] | | | POC | performed at [facility];[address] | | LABORATORY | | | | [address];[place], [place] | | | | | | [address] | | | | + + + + + + + + | Specimen | + + | | + + + + + + + | Performing | Address | City/State/Zipcode | Phone Number | | Organization | | | | + + + + + | [facility] | [address] [facility] | [place] [address] | [phone] | + + + + + POC [...] | | | POC | performed at [facility];[address] | | LABORATORY | | | | [address];[place], [place] | | | | | | [address] | | | | + + + + + + + + | Specimen | + + | | + + + + + + + | Performing | Address | City/State/Zipcode | Phone Number | | Organization | | | | + + + + + | [facility] | [address] | [place] [address] | [phone] | + + + + + Basic [...] | | | | | performed at [facility];[address] | | | | | | [facility];[place], [place] | | | | | | [address] | | | | + + + + + + + + | Specimen | + + | Blood | + + + + + + + | Performing | Address | City/State/Zipcode | Phone Number | | Organization | | | | + + + + + | [facility] | [address] | [place] [address] | [phone] | + + + + + POC [...] | | | POC | performed at [facility];[address] | | LABORATORY | | | | [address];[place], [place] | | | | | | [address] | | | | + + + + + + + + | Specimen | + + | | + + + + + + + | Performing | Address | City/State/Zipcode | Phone Number | | Organization | | | | + + + + + | [facility] | [address] | [place] [address] | [phone] | + + + + + CBC [...] 0.03Comment: Testing | 0.00 - 0.10 | [facility] | | | Absolute | performed at [facility];[address] | K/uL | LABORATORY | | | | [address];[place] | | | | | | [address] | | | | + + + + + + + + | Specimen | + + | Blood | + + + + + + + | Performing | Address | City/State/Zipcode | Phone Number | | Organization | | | | + + + + + | [facility] | [address] | [place] [address] | [phone] | + + + + + POC [...] | | | POC | performed at [facility];[address] | | LABORATORY | | | | [address];[place], [place] | | | | | | [address] | | | | + + + + + + + + | Specimen | + + | | + + + + + + + | Performing | Address | City/State/Zipcode | Phone Number | | Organization | | | | + + + + + | [facility] | [address] | [place] [address] | [phone] | + + + + + Hemoglobin [...] CORDELL | | | | performed at [facility];[address] | | LABORATORY | | | | [address];[place], [place] | | | | | | [address] | | | | + + + + + + + + | Specimen | + + | Blood | + + + + + + + | Performing | Address | City/State/Zipcode | Phone Number | | Organization | | | | + + + + + | [facility] | [address] | [place] [address] | [phone] | + + + + + POC [...] | | | POC | performed at [facility];[address] | | LABORATORY | | | | [address] [facility];[place], [place] | | | | | | [address] | | | | + + + + + + + + | Specimen | + + | | + + + + + + + | Performing | Address | City/State/Zipcode | Phone Number | | Organization | | | | + + + + + | [facility] | [address] | [place] [address] | [phone] | + + + + + Hemoglobin [...] ALEX | | | | performed at [facility];[address] | | LABORATORY | | | | [address];[place] | | | | | | [address] | | | | + + + + + + + + | Specimen | + + | Blood | + + + + + + + | Performing | Address | City/State/Zipcode | Phone Number | | Organization | | | | + + + + + | [facility] | [address] | [place] [address] | [phone] | + + + + + POC [...] | | | POC | performed at [facility];[address] | | LABORATORY | | | | [address];[place] | | | | | | [address] | | | | + + + + + + + + | Specimen | + + | | + + + + + + + | Performing | Address | City/State/Zipcode | Phone Number | | Organization | | | | + + + + + | [facility] | [address] | [place] [address] | [phone] | + + + + + POC Glucose (12/29/2019 11:06 AM PDT) + + + + + + | Component | Value | Ref Range | Performed | Pathologist | | | | | At | Signature | + + + + + + | Glucose, | 205 (H)Comment: Testing | 65 - 99 mg/dL | [facility] | | | POC | performed at [facility];[address] | | LABORATORY | | | | [address];[place] | | | | | | [address] | | | | + + + + + + + + | Specimen | + + | | + + + + + + + | Performing | Address | City/State/Zipcode | Phone Number | | Organization | | | | + + + + + | [facility] | [address] | [place] [address] | [phone] | + + + + + Surgical [...] | | technical component was performed by [facility], [address] [place] [address] | | | [place] [address] (Formula Checker: Padmini Sellers MD; CLIA# | | | [id number]). Professional interpretation was performed [facility] | | | [facility], [address], | | | [place] [address] (Formula Checker: Oscar Maynard M.D.; CLIA#: | | | [id number]). Diagnostician: Padmini Sellers | | | MDPathologistElectronically [...] | |The technical component was performed by [facility], [address] [place] [address] (Formula Checker: Padmini Sellers MD; CLIA# [id number]). Professional interpretation was performed by | | |[facility], [address] [address] (Formula Checker: Oscar Maynard M.D.; CLIA#: [id number]). | | | | | |Diagnostician: Padmini [...] | + + + | Geoff | [facility] | | [facility] Medical | PROVATION | | CenterGastroenterology | | | Patient Name: Andres Guzmán | | | Procedure Date: 12/29/2019 8:36 AMMRN: [id number] | | | of : 1930 | [...] the anesthesiologist and the | | | metal technician in the pre-procedure area in the [...] | | | with Gold probe 7 Cuban x 5 pulses was successful with | [...] [facility] | | | | performed at [facility];[address] | | LABORATORY | | | | [address];[place], [place] | | | | | | [address] | | | | + + + + + + + + | Specimen | + + | Blood | + + + + + + + | Performing | Address | City/State/Zipcode | Phone Number | | Organization | | | | + + + + + | [facility] | [address] | [place] [address] | [phone] | + + + + + POC Glucose (12/29/2019 6:06 AM PDT) + + + + + + | Component | Value | Ref Range | Performed | Pathologist | | | | | At | Signature | + + + + + + | Glucose, | 146 (H)Comment: Testing | 65 - 99 mg/dL | [facility] | | | POC | performed at [facility];[address] | | LABORATORY | | | | [address];[place] | | | | | | [address] | | | | + + + + + + + + | Specimen | + + | | + + + + + + + | Performing | Address | City/State/Zipcode | Phone Number | | Organization | | | | + + + + + | [facility] | [address] | [place] [address] | [phone] | + + + + + CBC [...] | | | Absolute | performed at [facility];[address] | K/uL | LABORATORY | | | | [address];[place] | | | | | | [address] | | | | + + + + + + + + | Specimen | + + | Blood | + + + + + + + | Performing | Address | City/State/Zipcode | Phone Number | | Organization | | | | + + + + + | [facility] | [address] | [place] [address] | [phone] | + + + + + Shine ORTEGA (12/29/2019 3:53 AM PDT) + + + + + + | Component | Value | Ref Range | Performed | Pathologist | | | | | At | Signature | + + + + + + | INR | 1.3Comment: REFERENCE | | [facility] | | | | RANGE:0.9 - [...] | | | | | performed at [facility];[address] | | | | | | [address];[place] | | | | | | [address] | | | | + + + + + + + + | Specimen | + + | Blood | + + + + + + + | Performing | Address | City/State/Zipcode | Phone Number | | Organization | | | | + + + + + | [facility] | [address] | [place] [address] | [phone] | + + + + + Basic [...] | | | | | | MDRD [facility] traceable | | | | | | equation.Testing | | | | | | performed at [facility];[address] | | | | | | [facility];[place], [place] | | | | | | [address] | | | | + + + + + + + + | Specimen | + + | Blood | + + + + + + + | Performing | Address | City/State/Zipcode | Phone Number | | Organization | | | | + + + + + | [facility] | [address] | [place] [address] | [phone] | + + + + + POC [...] | | | POC | performed at [facility];[address] | | LABORATORY | | | | [address];[place] | | | | | | [address] | | | | + + + + + + + + | Specimen | + + | | + + + + + + + | Performing | Address | City/State/Zipcode | Phone Number | | Organization | | | | + + + + + | [facility] | [address] | [place] [address] | [phone] | + + + + + Hemoglobin [...] [facility] | | | | performed at [facility];[address] | | LABORATORY | | | | [address];[place] | | | | | | [address] | | | | + + + + + + + + | Specimen | + + | Blood | + + + + + + + | Performing | Address | City/State/Zipcode | Phone Number | | Organization | | | | + + + + + | [facility] | [address] | [place] [address] | [phone] | + + + + + POC [...] | | | POC | performed at [facility];[address] | | LABORATORY | | | | [address];[place], [place] | | | | | | [address] | | | | + + + + + + + + | Specimen | + + | | + + + + + + + | Performing | Address | City/State/Zipcode | Phone Number | | Organization | | | | + + + + + | [facility] | [address] | [place] [address] | [phone] | + + + + + Fecal [...] | | LABORATORY | | | | [facility];[address];[place] [address] | | | | + + + + + + + + | Specimen | + + | Stool - Stool | | specimen (specimen) | + + + + + + + | Performing | Address | City/State/Zipcode | Phone Number | | Organization | | | | + + + + + | [facility] | [address] | [place] [address] | [phone] | + + + + + POC Glucose (12/28/2019 4:32 PM PDT) + + + + + + | Component | Value | Ref Range | Performed | Pathologist | | | | | At | Signature | + + + + + + | Glucose, | 124 (H)Comment: Testing | 65 - 99 mg/dL | [facility] | | | POC | performed at [facility];[address] | | LABORATORY | | | | [address];[place] | | | | | | [address] | | | | + + + + + + + + | Specimen | + + | | + + + + + + + | Performing | Address | City/State/Zipcode | Phone Number | | Organization | | | | + + + + + | [facility] | [address] | [place] [address] | [phone] | + + + + + Hemoglobin [...] [facility] | | | | performed at [facility];[address] | | LABORATORY | | | | [facility];[place], [place] | | | | | | [address] | | | | + + + + + + + + | Specimen | + + | Blood | + + + + + + + | Performing | Address | City/State/Zipcode | Phone Number | | Organization | | | | + + + + + | [facility] | [address] | [place] [address] | [phone] | + + + + + POC Glucose (12/28/2019 11:59 AM PDT) + + + + + + | Component | Value | Ref Range | Performed | Pathologist | | | | | At | Signature | + + + + + + | Glucose, | 163 (H)Comment: Testing | 65 - 99 mg/dL | [facility] | | | POC | performed at [facility];[address] | | LABORATORY | | | | [address];[place], [place] | | | | | | [address] | | | | + + + + + + + + | Specimen | + + | | + + + + + + + | Performing | Address | City/State/Zipcode | Phone Number | | Organization | | | | + + + + + | [facility] | [address] | [place] [address] | [phone] | + + + + + POC [...] | | | POC | performed at [facility];[address] | | LABORATORY | | | | [address];[place], [place] | | | | | | [address] | | | | + + + + + + + + | Specimen | + + | | + + + + + + + | Performing | Address | City/State/Zipcode | Phone Number | | Organization | | | | + + + + + | [facility] | [address] | [place] [address] | [phone] | + + + + + CBC [...] 0.01Comment: Testing | 0.00 - 0.10 | [facility] | | | Absolute | performed at [facility], [address] | K/uL | LABORATORY | | | | [address], | | | | | | [place] [address] | | | | + + + + + + + + | Specimen | + + | Blood | + + + + + + + | Performing | Address | City/State/Zipcode | Phone Number | | Organization | | | | + + + + + | [facility] | [address] | [place] [address] | [phone] | + + + + + Basic [...] | | | | | | MDRD IDKS traceable | | | | | | equation.Testing | | | | | | performed at [facility], [address] | | | | | | [facility], | | | | | | [place] [address] | | | | + + + + + + + + | Specimen | + + | Blood | + + + + + + + | Performing | Address | City/State/Zipcode | Phone Number | | Organization | | | | + + + + + | [facility] | [address] | [place] [address] | [phone] | + + + + + POC [...] | | | POC | performed at [facility];[address] | | LABORATORY | | | | [address];[place], [place] | | | | | | [address] | | | | + + + + + + + + | Specimen | + + | | + + + + + + + | Performing | Address | City/State/Zipcode | Phone Number | | Organization | | | | + + + + + | [facility] | [address] | [place] [address] | [phone] | + + + + + POC Glucose (12/27/2019 3:30 PM PDT) + + + + + + | Component | Value | Ref Range | Performed | Pathologist | | | | | At | Signature | + + + + + + | Glucose, | 156 (H)Comment: Testing | 65 - 99 mg/dL | [facility] | | | POC | performed at [facility];[address] | | LABORATORY | | | | [address];[place], [place] | | | | | | [address] | | | | + + + + + + + + | Specimen | + + | | + + + + + + + | Performing | Address | City/State/Zipcode | Phone Number | | Organization | | | | + + + + + | [facility] | [address] | [place] [address] | [phone] | + + + + + Red [...] | | LABORATORY | | | | Blvd;[place] [address] | | | | + + + + + + + + | Specimen | + + | | + + + + + + + | Performing | Address | City/State/Zipcode | Phone Number | | Organization | | | | + + + + + | [facility] | [address] | [place] [address] | [phone] | + + + + + Type [...] + + + | BB BAND | [id number] | | [facility] | | | | | | LABORATORY | | + + + + + + | UNIT # | [id number] | | [facility] | | | | [...] + + + | UNIT # | [id number] | | [facility] | | | | [...] | | | RESULT | performed at [facility];[address] | | LABORATORY | | | | [address];[place] | | | | | | [address] | | | | + + + + + + + + | Specimen | + + | Blood | + + + + + + + | Performing | Address | City/State/Zipcode | Phone Number | | Organization | | | | + + + + + | [facility] | [address] | [place] [address] | [phone] | + + + + + POC [...] | | | POC | performed at [facility];[address] | | LABORATORY | | | | [address];[place], [place] | | | | | | [address] | | | | + + + + + + + + | Specimen | + + | | + + + + + + + | Performing | Address | City/State/Zipcode | Phone Number | | Organization | | | | + + + + + | [facility] | [address] | [place] [address] | [phone] | + + + + + CBC [...] Testing | 0.00 - 0.10 | [facility] | | | Absolute | performed at [facility], [address] | K/uL | LABORATORY | | | | [address], | | | | | | [place] [address] | | | | + + + + + + + + | Specimen | + + | | + + + + + + + | Performing | Address | City/State/Zipcode | Phone Number | | Organization | | | | + + + + + | [facility] | [address] | [place] [address] | [phone] | + + + + + Procalcitonin [...] | | | | | | at [facility];[address] [place] [address] | | | | | | [facility];[place] [address] | | | | + + + + + + + + | Specimen | + + | Blood | + + + + + + + | Performing | Address | City/State/Zipcode | Phone Number | | Organization | | | | + + + + + | [facility] | [address] | [place] [address] | [phone] | + + + + + Basic [...] | | | | | performed at [facility], [address] | | | | | | [facility], | | | | | | [place] [address] | | | | + + + + + + + + | Specimen | + + | Blood | + + + + + + + | Performing | Address | City/State/Zipcode | Phone Number | | Organization | | | | + + + + + | [facility] | [address] | [place] [address] | [phone] | + + + + + Vitamin [...] | | | | defined by the Merkel | | | | | | ofMedicine [...] IOM | | | | | | (Merkel of Medicine). | | | | | [...] Hugh; | | | | | | [phone].Testing | | | | | | performed at [email or web address], | | | | | | [address], | | | | | | [facility] [address] | | | | + + + + + + + + | Specimen | + + | Blood | + + + + + + + | Performing | Address | City/State/Zipcode | Phone Number | | Organization | | | | + + + + + | [facility] | [address] | [place] [address] | [phone] | + + + + + Potassium (12/27/2019 12:08 AM PDT) + + + + + + | Component | Value | Ref Range | Performed | Pathologist | | | | | At | Signature | + + + + + + | K | 4.0Comment: Testing | 3.5 - 4.9 | [facility] | | | | performed at [facility];[address] | mmol/L | LABORATORY | | | | [address];[place] | | | | | | [address] | | | | + + + + + + + + | Specimen | + + | Blood | + + + + + + + | Performing | Address | City/State/Zipcode | Phone Number | | Organization | | | | + + + + + | [facility] | [address] | [place] [address] | [phone] | + + + + + Magnesium (12/27/2019 12:08 AM PDT) + + + + + + | Component | Value | Ref Range | Performed | Pathologist | | | | | At | Signature | + + + + + + | Magnesium | 2.2Comment: Testing | 1.7 - 2.4 mg/dL | [facility] | | | | performed at [facility];[address] | | LABORATORY | | | | [address];[place], [place] | | | | | | [address] | | | | + + + + + + + + | Specimen | + + | Blood | + + + + + + + | Performing | Address | City/State/Zipcode | Phone Number | | Organization | | | | + + + + + | [facility] | [address] [facility] | [place] [address] | [phone] | + + + + + ECG [...] | | | POC | performed at [facility];[address] | | LABORATORY | | | | [address];[place] | | | | | | [address] | | | | + + + + + + + + | Specimen | + + | | + + + + + + + | Performing | Address | City/State/Zipcode | Phone Number | | Organization | | | | + + + + + | [facility] | [address] | [place] [address] | [phone] | + + + + + POC [...] | | | POC | performed at [facility];[address] | | LABORATORY | | | | [address];[place], [place] | | | | | | [address] | | | | + + + + + + + + | Specimen | + + | | + + + + + + + | Performing | Address | City/State/Zipcode | Phone Number | | Organization | | | | + + + + + | [facility] | [address] [facility] | [place] [address] | [phone] | + + + + + Complement [...] | | | COMPLEMENT | performed at [email or web address], | | LABORATORY | | | | [address], | | | | | | [place] [address] | | | | + + + + + + + + | Specimen | + + | | + + + + + + + | Performing | Address | City/State/Zipcode | Phone Number | | Organization | | | | + + + + + | [facility] | [address] | [place] [address] | [phone] | + + + + + Complement C3 Ag (12/26/2019 12:33 PM PDT) + + + + + + | Component | Value | Ref Range | Performed | Pathologist | | | | | At | Signature | + + + + + + | C3 | 53 (L)Comment: Testing | 82 - 167 mg/dL | [facility] | | | COMPLEMENT | performed at [facility], | | LABORATORY | | | | [address], [facility] [address], | | | | | | [facility] [address] | | | | + + + + + + + + | Specimen | + + | | + + + + + + + | Performing | Address | City/State/Zipcode | Phone Number | | Organization | | | | + + + + + | [facility] | [address] | [place] [address] | [phone] | + + + + + POC Glucose (12/26/2019 11:15 AM PDT) + + + + + + | Component | Value | Ref Range | Performed | Pathologist | | | | | At | Signature | + + + + + + | Glucose, | 161 (H)Comment: Testing | 65 - 99 mg/dL | [facility] | | | POC | performed at [facility];[address] | | LABORATORY | | | | [address];[place] | | | | | | [address] | | | | + + + + + + + + | Specimen | + + | | + + + + + + + | Performing | Address | City/State/Zipcode | Phone Number | | Organization | | | | + + + + + | [facility] | [address] | [place] [address] | [phone] | + + + + + POC [...] | | | POC | performed at [facility];[address] | | LABORATORY | | | | [address];[place], [place] | | | | | | [address] | | | | + + + + + + + + | Specimen | + + | | + + + + + + + | Performing | Address | City/State/Zipcode | Phone Number | | Organization | | | | + + + + + | [facility] | [address] | [place] [address] | [phone] | + + + + + Parathyroid Hormone, Intraoperative (12/26/2019 4:25 AM PDT) + + + + + + | Component | Value | Ref Range | Performed | Pathologist | | | | | At | Signature | + + + + + + | PTH Intact | 167.0 (H)Comment: | 8.7 - 79.6 | [facility] | | | | Testing performed at | pg/mL | LABORATORY | | | | [facility];[address] | [address];[place] [address] | | | | + + + + + + + + | Specimen | + + | | + + + + + + + | Performing | Address | City/State/Zipcode | Phone Number | | Organization | | | | + + + + + | [facility] | [address] | [place] [address] | [phone] | + + + + + Renal [...] 3.3 | 3.3 - 4.8 g/dL | [facility] | | | | | | LABORATORY | | + + + + + + | Phosphorus | 5.2 (H) | 2.3 - 4.8 mg/dL | [facility] | | | | | | LABORATORY | | + + + + + + | Estimated | 13 (L)Comment: GFR <60: | >60 | [facility] | | | GFR | CHRONIC [...] | | | | | performed at [facility], [address] | | | | | | [facility], | | | | | | [place], [place] [address] | | | | + + + + + + + + | Specimen | + + | Blood | + + + + + + + | Performing | Address | City/State/Zipcode | Phone Number | | Organization | | | | + + + + + | [facility] | [address] | [place] [address] | [phone] | + + + + + POC Glucose (12/25/2019 8:53 PM PDT) + + + + + + | Component | Value | Ref Range | Performed | Pathologist | | | | | At | Signature | + + + + + + | Glucose, | 169 (H)Comment: Testing | 65 - 99 mg/dL | [facility] | | | POC | performed at [facility];[address] | | LABORATORY | | | | [address];[place] | | | | | | [address] | | | | + + + + + + + + | Specimen | + + | | + + + + + + + | Performing | Address | City/State/Zipcode | Phone Number | | Organization | | | | + + + + + | [facility] | [address] | [place] [address] | [phone] | + + + + + POC [...] | | | POC | performed at [facility];[address] | | LABORATORY | | | | [address];[place], [place] | | | | | | [address] | | | | + + + + + + + + | Specimen | + + | | + + + + + + + | Performing | Address | City/State/Zipcode | Phone Number | | Organization | | | | + + + + + | [facility] | [address] | [place] [address] | [phone] | + + + + + ECHO [...] | | | POC | performed at [facility];[address] | | LABORATORY | | | | [address];[place], [place] | | | | | | [address] | | | | + + + + + + + + | Specimen | + + | | + + + + + + + | Performing | Address | City/State/Zipcode | Phone Number | | Organization | | | | + + + + + | [facility] | [address] | [place] [address] | [phone] | + + + + + POC Glucose (12/25/2019 7:56 AM PDT) + + + + + + | Component | Value | Ref Range | Performed | Pathologist | | | | | At | Signature | + + + + + + | Glucose, | 136 (H)Comment: Testing | 65 - 99 mg/dL | [facility] | | | POC | performed at [facility];[address] | | LABORATORY | | | | [address];[place] | | | | | | [address] | | | | + + + + + + + + | Specimen | + + | | + + + + + + + | Performing | Address | City/State/Zipcode | Phone Number | | Organization | | | | + + + + + | [facility] | [address] | [place] [address] | [phone] | + + + + + CK Total (12/25/2019 4:25 AM PDT) + + + + + + | Component | Value | Ref Range | Performed | Pathologist | | | | | At | Signature | + + + + + + | CK TOTAL | 104Comment: Testing | 55 - 400 U/L | [facility] | | | | performed at [facility];[address] | | LABORATORY | | | | [address];[place] | | | | | | [address] | | | | + + + + + + + + | Specimen | + + | Blood | + + + + + + + | Performing | Address | City/State/Zipcode | Phone Number | | Organization | | | | + + + + + | [facility] | [address] | [place] [address] | [phone] | + + + + + Renal [...] (L)Comment: GFR <60: | >60 | [facility] | | | GFR | CHRONIC [...] | | | | | | MDRD IDKS traceable | | | | | | equation.Testing | | | | | | performed at [facility], [address] | | | | | | [facility], | | | | | | [place] [address] | | | | + + + + + + + + | Specimen | + + | Blood | + + + + + + + | Performing | Address | City/State/Zipcode | Phone Number | | Organization | | | | + + + + + | [facility] | [address] | [place] [address] | [phone] | + + + + + Cytoplasmic [...] | | | | | with both IA-3 and | | | | | | [...] | | | | | | [address] [facility], | | | | | | [facility] [address] | | | | + + + + + + + + | Specimen | + + | Blood | + + + + + + + | Performing | Address | City/State/Zipcode | Phone Number | | Organization | | | | + + + + + | [facility] | [address] | [place] [address] | [phone] | + + + + + Sedimentation Rate (12/25/2019 4:22 AM PDT) + + + + + + | Component | Value | Ref Range | Performed | Pathologist | | | | | At | Signature | + + + + + + | ESR | 6Comment: Testing | 0 - 20 mm/Hr | [facility] | | | | performed at [facility], [address] | | LABORATORY | | | | [address], | | | | | | [place] [address] | | | | + + + + + + + + | Specimen | + + | Blood | + + + + + + + | Performing | Address | City/State/Zipcode | Phone Number | | Organization | | | | + + + + + | [facility] | [address] | [place] [address] | [phone] | + + + + + Immunoglobulin, Free Light Chain (12/25/2019 4:22 AM PDT) + + + + + + | Component | Value | Ref Range | Performed | Pathologist | | | | | At | Signature | + + + + + + | Wassaic Free | 121.2 (H) | 3.3 - [...] + + + + + + | Wassaic/Lambd | 1.25Comment: Testing | 0.26 - 1.65 | [facility] | | | a Free | performed at [facility] | | LABORATORY | | | Light Chain | [place], [address] | | | | | Ratio | [place] [address] | | | | + + + + + + + + | Specimen | + + | Blood | + + + + + + + | Performing | Address | City/State/Zipcode | Phone Number | | Organization | | | | + + + + + | [facility] | [address] | [place] [address] | [phone] | + + + + + Glomerular [...] | | | | | | [facility], [address] [place] [address] | | | | | | [place] | | | | | | [address] | | | | + + + + + + + + | Specimen | + + | Blood | + + + + + + + | Performing | Address | City/State/Zipcode | Phone Number | | Organization | | | | + + + + + | [facility] [facility] | [address] | [place] [address] | [phone] | + + + + + Hepatitis [...] | | | | | | 0.9The [facility] recommends | | | | | | that a positive HCV | | | | | | antibody resultbe | | | | | | followed up with a HCV | | | | | | Nucleic Acid | | | | | | Amplificationtest | | | | | | ([id number]).Testing | | | | | | performed at [email or web address], | | | | | | [address], | | | | | | [facility] [address] | | | | + + + + + + + + | Specimen | + + | Blood | + + + + + + + | Performing | Address | City/State/Zipcode | Phone Number | | Organization | | | | + + + + + | [facility] | [address] | [place] [address] | [phone] | + + + + + CK Total (12/25/2019 4:22 AM PDT) + + + + + + | Component | Value | Ref Range | Performed | Pathologist | | | | | At | Signature | + + + + + + | CK TOTAL | 100Comment: Testing | 55 - 400 U/L | [facility] | | | | performed at [facility];[address] | | LABORATORY | | | | [address];[place] | | | | | | [address] | | | | + + + + + + + + | Specimen | + + | Blood | + + + + + + + | Performing | Address | City/State/Zipcode | Phone Number | | Organization | | | | + + + + + | [facility] | [address] | [place] [address] | [phone] | + + + + + Lactate Dehydrogenase (12/25/2019 4:22 AM PDT) + + + + + + | Component | Value | Ref Range | Performed | Pathologist | | | | | At | Signature | + + + + + + | LDH TOTAL | 154Comment: Testing | 120 - 246 U/L | [facility] | | | | performed at [facility];[address] | | LABORATORY | | | | [address];[place] | | | | | | [address] | | | | + + + + + + + + | Specimen | + + | Blood | + + + + + + + | Performing | Address | City/State/Zipcode | Phone Number | | Organization | | | | + + + + + | [facility] | [address] | [place] [address] | [phone] | + + + + + Magnesium (12/25/2019 4:22 AM PDT) + + + + + + | Component | Value | Ref Range | Performed | Pathologist | | | | | At | Signature | + + + + + + | Magnesium | 2.5 (H)Comment: Testing | 1.7 - 2.4 mg/dL | [facility] | | | | performed at [facility], [address] | | LABORATORY | | | | [address], | | | | | | [place] [address] | | | | + + + + + + + + | Specimen | + + | Blood | + + + + + + + | Performing | Address | City/State/Zipcode | Phone Number | | Organization | | | | + + + + + | [facility] | [address] | [place] [address] | [phone] | + + + + + Protein, [...] LABORATORY | | | | performed at [facility], [address] | | | | | [address] [facility], | | | | | | [place] [address] | | | | + + + + + + + + | Specimen | + + | | + + + + + + + | Performing | Address | City/State/Zipcode | Phone Number | | Organization | | | | + + + + + | [facility] | [address] | [place] [address] | [phone] | + + + + + Creatinine, Urine, Random (12/25/2019 12:01 AM PDT) + + + + + + | Component | Value | Ref Range | Performed | Pathologist | | | | | At | Signature | + + + + + + | Creatinine, | 139.0Comment: NO NORMAL | mg/dL | [facility] | | | random | RANGE ESTABLISHEDTesting | | LABORATORY | | | urine | performed at [facility], [address] | | | | | [address], | | | | | | [place] [address] | | | | + + + + + + + + | Specimen | + + | | + + + + + + + | Performing | Address | City/State/Zipcode | Phone Number | | Organization | | | | + + + + + | [facility] | [address] | [place] [address] | [phone] | + + + + + Protein/Creatinine Ratio, Urine (12/25/2019 12:01 AM PDT) + + + + + + | Component | Value | Ref Range | Performed | Pathologist | | | | | At | Signature | + + + + + + | PRO/CREA | 0.942Comment: Testing | | [facility] | | | RATIO,URINE | performed at [facility], [address] | | LABORATORY | | | | [address], | | | | | | [place] [address] | | | | + + + + + + + + | Specimen | + + | Urine | + + + + + + + | Performing | Address | City/State/Zipcode | Phone Number | | Organization | | | | + + + + + | [facility] | [address] | [place] [address] | [phone] | + + + + + POC [...] | | | POC | performed at [facility];[address] | | LABORATORY | | | | [address];[place], [place] | | | | | | [address] | | | | + + + + + + + + | Specimen | + + | | + + + + + + + | Performing | Address | City/State/Zipcode | Phone Number | | Organization | | | | + + + + + | [facility] | [address] | [place] [address] | [phone] | + + + + + POC Glucose (12/24/2019 5:14 PM PDT) + + + + + + | Component | Value | Ref Range | Performed | Pathologist | | | | | At | Signature | + + + + + + | Glucose, | 136 (H)Comment: Testing | 65 - 99 mg/dL | [facility] | | | POC | performed at [facility];[address] | | LABORATORY | | | | [address];[place] | | | | | | [address] | | | | + + + + + + + + | Specimen | + + | | + + + + + + + | Performing | Address | City/State/Zipcode | Phone Number | | Organization | | | | + + + + + | [facility] | [address] | [place] [address] | [phone] | + + + + + ECG [...] | Procedure Note | + + | KobeLeonides sherwood Results In - 12/24/2019 2:35 PM PDT [...] | | | Arterial, | performed at [facility];[address] | | LABORATORY | | | POC | [address];[place], [place] | | | | | | [address] | | | | + + + + + + + + | Specimen | + + | | + + + + + + + | Performing | Address | City/State/Zipcode | Phone Number | | Organization | | | | + + + + + | [facility] | [address] | [place] [address] | [phone] | + + + + + Coronavirus (COVID-19) NAAT (12/24/2019 1:10 PM PDT) + + + + + + | Component | Value | Ref Range | Performed | Pathologist | | | | | At | Signature | + + + + + + | SARS-CoV-2, | NEGATIVEComment: Testing | NEG | [facility] | | | NAAT | performed at [facility];[address] | | LABORATORY | | | (COVID-19) | [address];[place] | | | | | | [address] | | | | + + + + + + + + | Specimen | + + | Tissue - Entire | | nasopharynx (body | | structure) | + + + + + + + | Performing | Address | City/State/Zipcode | Phone Number | | Organization | | | | + + + + + | [facility] | [address] | [place] [address] | [phone] | + + + + + Culture, [...] | | LABORATORY | | | | Blvd;[place] [address] | | | | + + + + + + | RESULT | NO GROWTH 6 DAYS | | [facility] | | | | | | LABORATORY | | + + + + + + | RESULT | Testing performed at | | [facility] | | | | [facility]CL, [address] [facility] | | LABORATORY | | | | [address], [place], [place] | | | | | | [address]Hbuhcdb: Testing | | | | | | performed at [facility], [address] | | | | | | [address], [place], [place] | | | | | | [address] | | | | + + + + + + + + | Specimen | + + | Blood - Peripheral | | blood specimen | | (specimen) | + + + + + + + | Performing | Address | City/State/Zipcode | Phone Number | | Organization | | | | + + + + + | [facility] | [address] | [place] [address] | [phone] | + + + + + Culture, [...] | | LABORATORY | | | | [address];[place] [address] | | | | + + + + + + | RESULT | NO GROWTH 6 DAYS | | [facility] | | | | | | LABORATORY | | + + + + + + | RESULT | Testing performed at | | [facility] | | | | TCL, [address] [facility] | | LABORATORY | | | | [place], [place] | | | | | | [address]Atqulfh: Testing | | | | | | performed at [facility], [address] | | | | | | [facility], [place], [place] | | | | | | [address] | | | | + + + + + + + + | Specimen | + + | Blood - Peripheral | | blood specimen | | (specimen) | + + + + + + + | Performing | Address | City/State/Zipcode | Phone Number | | Organization | | | | + + + + + | [facility] | [address] | [place] [address] | [phone] | + + + + + Urinalysis [...] - 1.030 | [facility] | | | [place], | | | LABORATORY | | [...] 1+ (A)Comment: Testing | NONE | [facility] | | | Urine | performed at [facility], [address] | | LABORATORY | | | | [address], | | | | | | [place] [address] | | | | + + + [...] + + + + + | [facility] | [address] | [place] [address] | [phone] | + + + + + Sodium, [...] | | | urine | performed at [facility], [address] | | | | | | [address], | | | | | | [place] [address] | | | | + + + [...] + + + + + | [facility] | [address] | [place] [address] | [phone] | + + + + + Creatinine, [...] | | | urine | performed at [facility], [address] | | | | | | [address], | | | | | | [place] [address] | | | | + + + [...] + + + + + | [facility] | [address] | [place] [address] | [phone] | + + + + + Lactic Acid (12/24/2019 12:27 PM PDT) + + + + + + | Component | Value | Ref Range | Performed | Pathologist | | | | | At | Signature | + + + + + + | Lactate, | 1.6Comment: Testing | 0.4 - 2.0 | [facility] | | | Serum | performed at [facility];[address] | mmol/L | LABORATORY | | | | [address];[place], [place] | | | | | | [address] | | | | + + + + + + + + | Specimen | + + | Blood | + + + + + + + | Performing | Address | City/State/Zipcode | Phone Number | | Organization | | | | + + + + + | [facility] | [address] | [place] [address] | [phone] | + + + + + Procalcitonin (12/24/2019 12:27 PM PDT) + + + + + + | Component | Value | Ref Range | Performed | Pathologist | | | | | At | Signature | + + + + + + | PROCALCITON | 0.69 (H)Comment: | <0.5 ng/mL | [facility] | | | IN | INTERPRETIVE [...] | | | | | | at [facility];[address] [place] [address] | | | | | | [facility];[place] [address] | | | | + + + + + + + + | Specimen | + + | Blood | + + + + + + + | Performing | Address | City/State/Zipcode | Phone Number | | Organization | | | | + + + + + | [facility] | [address] | [place] [address] | [phone] | + + + + + POC Glucose (12/24/2019 12:25 PM PDT) + + + + + + | Component | Value | Ref Range | Performed | Pathologist | | | | | At | Signature | + + + + + + | Glucose, | 143 (H)Comment: Testing | 65 - 99 mg/dL | [facility] | | | POC | performed at [facility];[address] | | LABORATORY | | | | [address];[place], [place] | | | | | | [address] | | | | + + + + + + + + | Specimen | + + | | + + + + + + + | Performing | Address | City/State/Zipcode | Phone Number | | Organization | | | | + + + + + | [facility] | [address] | [place] [address] | [phone] | + + + + + POC [...] | | | POC | performed at [facility];[address] | | LABORATORY | | | | [address];[place], [place] | | | | | | [address] | | | | + + + + + + + + | Specimen | + + | | + + + + + + + | Performing | Address | City/State/Zipcode | Phone Number | | Organization | | | | + + + + + | [facility] | [address] | [place] [address] | [phone] | + + + + + CBC [...] LABORATORY | | | | performed at [facility];[address] | | | | | | [address];[place], [place] | | | | | | [address] | | | | + + + + + + + + | Specimen | + + | Blood | + + + + + + + | Performing | Address | City/State/Zipcode | Phone Number | | Organization | | | | + + + + + | [facility] | [address] | [place] [address] | [phone] | + + + + + Basic [...] 16 (L)Comment: GFR <60: | >60 | [facility] | | | GFR | CHRONIC [...] | | | | | performed at [facility], [address] | | | | | | [facility], | | | | | | [place] [address] | | | | + + + + + + + + | Specimen | + + | Blood | + + + + + + + | Performing | Address | City/State/Zipcode | Phone Number | | Organization | | | | + + + + + | [facility] | [address] | [place] [address] | [phone] | + + + + + POC Glucose (12/23/2019 8:35 PM PDT) + + + + + + | Component | Value | Ref Range | Performed | Pathologist | | | | | At | Signature | + + + + + + | Glucose, | 135 (H)Comment: Testing | 65 - 99 mg/dL | [facility] | | | POC | performed at [facility];[address] | | LABORATORY | | | | [address];[place], [place] | | | | | | [address] | | | | + + + + + + + + | Specimen | + + | | + + + + + + + | Performing | Address | City/State/Zipcode | Phone Number | | Organization | | | | + + + + + | [facility] | [address] | [place] [address] | [phone] | + + + + + POC [...] | | | POC | performed at [facility];[address] | | LABORATORY | | | | [address];[place], [place] | | | | | | [address] | | | | + + + + + + + + | Specimen | + + | | + + + + + + + | Performing | Address | City/State/Zipcode | Phone Number | | Organization | | | | + + + + + | [facility] | [address] | [place] [address] | [phone] | + + + + + POC Glucose (12/23/2019 2:05 PM PDT) + + + + + + | Component | Value | Ref Range | Performed | Pathologist | | | | | At | Signature | + + + + + + | Glucose, | 158 (H)Comment: Testing | 65 - 99 mg/dL | [facility] | | | POC | performed at [facility];[address] | | LABORATORY | | | | [address];[place] | | | | | | [address] | | | | + + + + + + + + | Specimen | + + | | + + + + + + + | Performing | Address | City/State/Zipcode | Phone Number | | Organization | | | | + + + + + | [facility] | [address] | [place] [address] | [phone] | + + + + + POC Glucose (12/23/2019 7:21 AM PDT) + + + + + + | Component | Value | Ref Range | Performed | Pathologist | | | | | At | Signature | + + + + + + | Glucose, | 122 (H)Comment: Testing | 65 - 99 mg/dL | [facility] | | | POC | performed at [facility];[address] | | LABORATORY | | | | [address];[place] | | | | | | [address] | | | | + + + + + + + + | Specimen | + + | | + + + + + + + | Performing | Address | City/State/Zipcode | Phone Number | | Organization | | | | + + + + + | [facility] | [address] | [place] [address] | [phone] | + + + + + Basic [...] | | | | | | [facility] traceable | | | | | | equation.Testing | | | | | | performed at [facility];[address] | | | | | | [facility];[place], [place] | | | | | | [address] | | | | + + + + + + + + | Specimen | + + | Blood | + + + + + + + | Performing | Address | City/State/Zipcode | Phone Number | | Organization | | | | + + + + + | [facility] | [address] | [place] [address] | [phone] | + + + + + Phosphorus (12/23/2019 4:04 AM PDT) + + + + + + | Component | Value | Ref Range | Performed | Pathologist | | | | | At | Signature | + + + + + + | Phosphorus | 4.6Comment: Testing | 2.3 - 4.8 mg/dL | [facility] | | | | performed at [facility];[address] | | LABORATORY | | | | [address];[place], [place] | | | | | | [address] | | | | + + + + + + + + | Specimen | + + | Blood | + + + + + + + | Performing | Address | City/State/Zipcode | Phone Number | | Organization | | | | + + + + + | [facility] | [address] | [place] [address] | [phone] | + + + + + Magnesium (12/23/2019 4:04 AM PDT) + + + + + + | Component | Value | Ref Range | Performed | Pathologist | | | | | At | Signature | + + + + + + | Magnesium | 2.1Comment: Testing | 1.7 - 2.4 mg/dL | [facility] | | | | performed at [facility];[address] | | LABORATORY | | | | [address];[place], [place] | | | | | | [address] | | | | + + + + + + + + | Specimen | + + | Blood | + + + + + + + | Performing | Address | City/State/Zipcode | Phone Number | | Organization | | | | + + + + + | [facility] | [address] | [place] [address] | [phone] | + + + + + CBC [...] LABORATORY | | | | performed at [facility];[address] | | | | | | [address];[place] | | | | | | [address] | | | | + + + + + + + + | Specimen | + + | Blood | + + + + + + + | Performing | Address | City/State/Zipcode | Phone Number | | Organization | | | | + + + + + | [facility] | [address] | [place] [address] | [phone] | + + + + + Hemoglobin (12/22/2019 9:37 PM PDT) + + + + + + | Component | Value | Ref Range | Performed | Pathologist | | | | | At | Signature | + + + + + + | Hemoglobin | 9.1 (L)Comment: Testing | 13.2 - 17.0 | [facility] | | | | performed at [facility];[address] | g/dL | LABORATORY | | | | [address];[place] | | | | | | [address] | | | | + + + + + + + + | Specimen | + + | Blood | + + + + + + + | Performing | Address | City/State/Zipcode | Phone Number | | Organization | | | | + + + + + | [facility] | [address] | [place] [address] | [phone] | + + + + + Hematocrit (12/22/2019 9:37 PM PDT) + + + + + + | Component | Value | Ref Range | Performed | Pathologist | | | | | At | Signature | + + + + + + | Hematocrit | 27.4 (L)Comment: Testing | 39.0 - 50.0 % | [facility] | | | | performed at [facility];[address] | | LABORATORY | | | | [address];[place] | | | | | | [address] | | | | + + + + + + + + | Specimen | + + | Blood | + + + + + + + | Performing | Address | City/State/Zipcode | Phone Number | | Organization | | | | + + + + + | [facility] | [address] | [place] [address] | [phone] | + + + + + POC [...] | | | POC | performed at [facility];[address] | | LABORATORY | | | | [address];[place], [place] | | | | | | [address] | | | | + + + + + + + + | Specimen | + + | | + + + + + + + | Performing | Address | City/State/Zipcode | Phone Number | | Organization | | | | + + + + + | [facility] | [address] | [place] [address] | [phone] | + + + + + POC Glucose (12/22/2019 5:32 PM PDT) + + + + + + | Component | Value | Ref Range | Performed | Pathologist | | | | | At | Signature | + + + + + + | Glucose, | 153 (H)Comment: Testing | 65 - 99 mg/dL | [facility] | | | POC | performed at [facility];[address] | | LABORATORY | | | | [address];[place] | | | | | | [address] | | | | + + + + + + + + | Specimen | + + | | + + + + + + + | Performing | Address | City/State/Zipcode | Phone Number | | Organization | | | | + + + + + | [facility] | [address] | [place] [address] | [phone] | + + + + + Red [...] | [facility] | | | COMMENT | [facility];[address] | | LABORATORY | | | | [address];[place] [address] | | | | + + + + + + + + | Specimen | + + | | + + + + + + + | Performing | Address | City/State/Zipcode | Phone Number | | Organization | | | | + + + + + | [facility] | [address] | [place] [address] | [phone] | + + + + + POC Glucose (12/22/2019 10:38 AM PDT) + + + + + + | Component | Value | Ref Range | Performed | Pathologist | | | | | At | Signature | + + + + + + | Glucose, | 161 (H)Comment: Testing | 65 - 99 mg/dL | [facility] | | | POC | performed at [facility];[address] | | LABORATORY | | | | [address];[place] | | | | | | [address] | | | | + + + + + + + + | Specimen | + + | | + + + + + + + | Performing | Address | City/State/Zipcode | Phone Number | | Organization | | | | + + + + + | [facility] | [address] | [place] [address] | [phone] | + + + + + NATHALIA [...] + + | Performing | Address | City/State/[facility] | Phone Number | | Organization [...] | | | POC | performed at [facility];[address] | g/dL | LABORATORY | | | | [address];[place] | | | | | | [address] | | | | + + + + + + + + | Specimen | + + | | + + + + + + + | Performing | Address | City/State/Zipcode | Phone Number | | Organization | | | | + + + + + | [facility] | [address] | [place] [address] | [phone] | + + + + + POC [...] | | | POC | performed at [facility];888 | g/dL | LABORATORY | | | | [address];[place], [place] | | | | | | [address] | | | | + + + + + + + + | Specimen | + + | | + + + + + + + | Performing | Address | City/State/Zipcode | Phone Number | | Organization | | | | + + + + + | [facility] | [address] | [place] [address] | [phone] | + + + + + POC [...] | | | POC | performed at [facility];888 | g/dL | LABORATORY | | | | [address];[place] | | | | | | [address] | | | | + + + + + + + + | Specimen | + + | | + + + + + + + | Performing | Address | City/State/Zipcode | Phone Number | | Organization | | | | + + + + + | [facility] | [address] | [place] [address] | [phone] | + + + + + POC [...] Testing | 13.7 - 16.7 | [facility] | | | POC | performed at [facility];888 | g/dL | LABORATORY | | | | [address];[place], [place] | | | | | | [address] | | | | + + + + + + + + | Specimen | + + | | + + + + + + + | Performing | Address | City/State/Zipcode | Phone Number | | Organization | | | | + + + + + | [facility] | [address] | [place] [address] | [phone] | + + + + + Type [...] + + + | BB BAND | [id number] | | [facility] | | | | | | LABORATORY | | + + + + + + | UNIT # | [id number] | | [facility] | | | | [...] | | | RESULT | performed at [facility];[address] | | LABORATORY | | | | [address];[place], [place] | | | | | | [address] | | | | + + + + + + | UNIT # | [id number] | | [facility] | | | | [...] [facility] | [address] | [place] [address] | [phone] | + + + + + POC [...] | | | POC | performed at [facility];[address] | | LABORATORY | | | | [address];[place], [place] | | | | | | [address] | | | | + + + + + + + + | Specimen | + + | | + + + + + + + | Performing | Address | City/State/Zipcode | Phone Number | | Organization | | | | + + + + + | [facility] | [address] | [place] [address] | [phone] | + + + + + Protime [...] | | | | | performed at [facility];[address] | | | | | | [address];[place] | | | | | | [address] | | | | + + + + + + + + | Specimen | + + | Blood | + + + + + + + | Performing | Address | City/State/Zipcode | Phone Number | | Organization | | | | + + + + + | [facility] | [address] | [place] [address] | [phone] | + + + + + CBC [...] | | | Absolute | performed at [facility], [address] | [address] | LABORATORY | | | | [address], | | | | | | [place] [address] | | | | + + + + + + + + | Specimen | + + | Blood | + + + + + + + | Performing | Address | City/State/Zipcode | Phone Number | | Organization | | | | + + + + + | [facility] | [address] | [place] [address] | [phone] | + + + + + Magnesium (12/22/2019 5:26 AM PDT) + + + + + + | Component | Value | Ref Range | Performed | Pathologist | | | | | At | Signature | + + + + + + | Magnesium | 2.6 (H)Comment: Testing | 1.7 - 2.4 mg/dL | [facility] | | | | performed at [facility], [address] | LABORATORY | | | | [address], | | | | | | [place] [address] | | | | + + + + + + + + | Specimen | + + | Blood | + + + + + + + | Performing | Address | City/State/Zipcode | Phone Number | | Organization | | | | + + + + + | [facility] | [address] | [place] [address] | [phone] | + + + + + Basic [...] | | | | | performed at [facility], [address] | | | | | | [address], | | | | | | [place] [address] | | | | + + + + + + + + | Specimen | + + | Blood | + + + + + + + | Performing | Address | City/State/Zipcode | Phone Number | | Organization | | | | + + + + + | [facility] | [address] | [place] [address] | [phone] | + + + + + POC [...] | | | POC | performed at [facility];[address] | | LABORATORY | | | | [address];[place], [place] | | | | | | [address] | | | | + + + + + + + + | Specimen | + + | | + + + + + + + | Performing | Address | City/State/Zipcode | Phone Number | | Organization | | | | + + + + + | [facility] | [address] | [place] [address] | [phone] | + + + + + POC [...] | | | POC | performed at [facility];[address] | | LABORATORY | | | | [address];[place] | | | | | | [address] | | | | + + + + + + + + | Specimen | + + | | + + + + + + + | Performing | Address | City/State/Zipcode | Phone Number | | Organization | | | | + + + + + | [facility] | [address] | [place] [address] | [phone] | + + + + + documented [...] | | | | | | Starting [facility] 12/26/19 at 1637 | | | [...] | | | | | | | 9624-6338 Use NIGHT DOSE for | | | | | | | doses scheduled: HS, | | | | | | | Nighttime [id number] If the BG is | | | [...] + +-------+ +---------+---+ + | Given | 05/12/20 | 2 Units | | Abdomen- | [...] | | | | | dose on e 12/31/19 at 1630, Do | | | [...]
--- OUTSIDE RECORDS SUMMARY | ~2020-03-21 | XMS | Encounter Summary ---
Demographics + + + | Address | [address] | | | [place] [address] | + + + | Home Phone [...] [place] | | | | | [address] | | + + + + + | Deanna Lawson | ECON | Unknown | | + + + + + Care Team Providers + +------+ + | Care Diesel Dinkey Engineer Name | Role | Phone | [...] + | 11/27/ | Virtual | [facility] | Charlee Oswald | Cardiac pacemaker in | | 2020 | Office | CARDIOLOGY ALYX | [address] | situ (Primary Dx); | | | Visit | [address] | [place] | Permanent atrial | | | | [address] | [place] [address] | fibrillation (HCC); | | | | [place] | [phone] | Chronic diastolic | | | | [address] | | heart failure (HCC); | | | | [phone] | | Dilated aortic root | | [...] minutes of medical discussion via telephone visit ([id number]) Patient has not been seen in office [...] reported by him as being negative His HDX0YX0- VASC score is 6( HTN, age, stroke, [...] recreational or illicit drug use. Exercises with [employer] and yard work, tolerates without chest pain or dyspnea. 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 Also worked for a [employer] company and then a [employer], but now just enjoys his leisure ti [...] : 02/04/2019: ( Dr. Thompson) : new [employer] Accolade MRI com patible model L310, serial #[id number] pacemaker. The current lead is a [employer] One Beauty Stop model 4136, serial #[id number].Mode for pacing, VVIR with dual-sensor technology programmed on. T he lower rate will be 60 and upper rate 120beats per minute. The output will be 2 volts at 0.4 milliseconds with sensitivity of 2.5 millivolts. Pacing and sensing will be bipolar Previous Implant Pacemaker/ICD: 07/30/2010, SYDNEE Altrajinder S601, SN: [id number]. [facility]. Last pacer interrogation: 11/11/2019: Battery longevity 9 years. Pacer dependent. RV paci n%. No atrial lead, unable to monitor burden of atrial fibrillation. No ventricular high rate episodes. Lead impedance and threshold values acceptable. CHF parameters and ethan nds reviewed and stable. pacer interrogation: 05/07/2019: ( Dr. Thompson) : Normal device function was seen today for th is [employer] single-chamber device. The pacing threshold was [...] 15 mmHg. Normal pulmonic valve with mild ND. Sinus of Valsalva dilated about 4.26 cm, [...] change, except less pulmonar y hypertension Echo:07/26/2017: [facility]: EF >70 percent. LV normal [...] PHS 75,TOTAL BILI 0.6,ALB 3.9 Labs: 02/18/2018: ([facility]). CBC: WBC 6.2, RBC [...] 73. Thyroid: TSH 3.55 Labs: 08/23/2018: ( [facility]): CBC: WBC 6.6, RBC 2.92, hemoglobin [...] atrial fi b with a very high ZML9XW7- VASC score of 6. For his cardiac [...] with Dr. Dina Sanchez 01/22/2020 for primary rehabilitation services aide, as well as seeing me. I also referred him for sleep apnea evaluation with Dr. Dorsey at the [facility] sleep disorders clinic due to his now [...] notes for continuity of care [facility] Adoyvette gregory in this encounter Plan of Treatment +--------+ + + + + | Date | Type | Specialty | Care Team | Description | +--------+ + + + + | 03/23/ | Preadmit | Pre-Admission | Anna Edouard, | | | 2019 | Visit | Testing | MD [address] | | | | | | [place] [address] | | | | | | [phone] | | | | | | | | +--------+ + + + + | 03/24/ | Hospital | | Anna Edouard, | Esophagitis | | 2019 | Encounter | | MD [address] | | | | | | [place] [address] | | | | | | [phone] | | | | | | | | +--------+ + + + + | 03/24/ | Surgery | | Anna Edouard | EGD | | 2019 | | | [address] | | | | | | [place] [address] | | | | | | [phone] | | | | | | | | +--------+ + + + + | 03/31/ | Office | Orthopedic Surgery | Melquiades Baez | | | 2019 | Visit | | [address] | | | | | | [place], | | | | | | [place] [address] | | | | | | [phone] | | | | | | | | +--------+ + + + + | 04/21/ | Office | Nephrology | Isiah Jade MD | | | 2019 | Visit | | [address] [facility] | | | | | | [address] [place] | | | | | | [address] | | | | | | | | +--------+ + + + + | 05/07/ Office | Cardiology | Charlee Oswald | | | 2019 | Visit | | [address] | | | | | | [address] | | | | | | [place] [address] | | | | | | [phone] | | | | | | | [...]
--- OUTSIDE RECORDS SUMMARY | ~2020-03-21 | XMS | Encounter Summary ---
Demographics + + + | Address | [address] | | | [place] [address] | + + + | Home Phone [...] [place] | | | | | [address] | | + + + + + | Deanna Lawson | ECON | Unknown | | + + + + + Care Team Providers + +------+ + | Care Cotton Gin Yard Supervisor Name | Role | Phone | [...] + + | 01/29/ | Documentati | [facility] | Damon, | Results (01/22/20, | | 2020 | on | [facility]PH[facility]Y [facility] | [facility] | 01/27/20) | | | | [address] | Used Equipment Sales Representative | | | | | [address] [facility] [place] | | | | | | [address] | | | | | | [phone] | | | +--------+ + + + [...] [address] | | | | | | [place] [address] | | | | | | [phone] | | | | | | | | +--------+ + + + + | 03/24/ | Hospital | | Anna Edouard, | Esophagitis | 2019 | Encounter | | MD [address] | | | | | | [place] [address] | | | | | | [phone] | | | | | | | | +--------+ + + + + | 03/24/ | Surgery | | Anna dEouard | VANDANA | | 2019 | | | MD [address] | | | | | | [place] [address] | | | | | | [phone] | | | | | | | | +--------+ + + + + | 03/31/ | Office | Orthopedic Surgery | Melquiades Baez | | | 2019 | Visit | | DO [address] | | | | | | [place], | | | | | | [place] [address] | | | | | | [phone] | | | | | | | | +--------+ + + + + | 04/21/ | Office | Nephrology | Isiah Jade MD | | 2019 | Visit | | [address] [facility] | | | | | | [address] [place] | | | | | | [address] | | | | | | | | +--------+ + + + + | 05/07/ | Office | Cardiology | Charlee Oswald | | | 2019 | Visit | | [address] | | | | | | [place] | | | | | | [place] [address] | | | | | | [phone] | | | | | | | [...] 1.001 - 1.030 | | | | [place], | | | | | | Urine [...]
--- OUTSIDE RECORDS SUMMARY | ~2020-03-21 | XMS | Encounter Summary ---
Demographics + + + | Address | [address] | | | [place] [address] | + + + | Home Phone [...] [place] | | | | | [address] | | + + + + + | Deanna Lawson | ECON | Unknown | | + + + + + Care Team Providers + +------+ + | Care Kit Assembler Name | Role | Phone | [...] [address] | | | | | [place], [place] | [place] [address] | | | | | [address] | [phone] | | | | | [phone] | | | +--------+ + + + [...] | | | | | [place] [address] | | | | | | [phone] | | | | | | | | +--------+ + + + + | 03/24/ | Hospital | | Anna Edouard, | Esophagitis | | 2020 | Encounter | | MD [address] | | | | | | [place] [address] | | | | | | [phone] | | | | | | | | +--------+ + + + + | 03/24/ | Surgery | | Anna Edouard | EGD | | 2019 | | | [address] | | | | | | [place] [address] | | | | | | [phone] | | | | | | | | +--------+ + + + + | 03/31/ | Office | Orthopedic Surgery | Melquiades Baez | | | 2019 | Visit | | [address] | | | | | | [place], | | | | | | [place] [address] | | | | | | [phone] | | | | | | | | +--------+ + + + + | 04/21/ | Office | Nephrology | Isiah Jade MD | | 2019 | Visit | | [address] [facility] | | | | | | [address] [place] [address] | | | | | | [address] | | | | | | | | +--------+ + + + + | 05/07/ | Office | Cardiology | Charlee Oswald | | | 2019 | Visit | | [address] | | | | | | [address] | | | | | | [place] [address] | | | | | | [phone] | | | | | | | [...] 1.67 cm | | | AR Dec [place]: 1.62 m/s2 AR Dec Time: 2122.29 ms [...] RV s': | | | 0.10 m/s Chief Librarian Circulation Department: PARTHA Authenticated by: Vikki oGdoy | | | Report Date/Time: 09-27-2018 20:0:35 | | + + + + + | Procedure Note | + + | Leonides Bullock Conversion - 04/11/2019 12:50 PM PDT Patient Name: Francisco Guzmán of | | : 1930 Performing Physician: Vikki | | [facility] INDICATIONS------ | | -----afib, pacemaker, [...] | | cmLVPWd: 0.92 cmLVOT Area: 4.11 [id number] Diam: 2.29 cm%FS: 21.62 %EF(Teich): | | [...] mlLAESV Index (A-L): 58.76 ml/m2LAAs A2C: 25.86 [id number] A-L A2C: 90.57 | | mlLALs A2C: 6.26 cmLAAs A4C: 29.36 [id number] A-L A4C: 115.78 mlLALs A4C: 6.32 | | cmRAAs: 26.92 [id number] A-L: 103.75 mlRAESV MOD: 96.91 mlRALs: 5.92 cmTAPSE: | | 1.67 cmAR Dec [place]: 1.62 m/s2AR Dec Time: 2121. msAR maxP.71 mmHgAR PHT: | | 615.46 msAR Vmax: 3.45 m/Armen maxP.22 mmHgAV meanP.30 mmHgAV Vmax: 1.24 | | m/Armen Vmean: 0.84 m/Armen VTI: 25.35 cmAVA Vmax: 2.51 cm2AVA (VTI): 2.84 fl0AYGP | | (Vmax): 0.00 cm2/m2AVAI (VTI): 0.00 [...] mmHgTR Vmax: 3.74 m/sRV s': 0.10 m/s Chief Librarian Circulation Department: | | DBSAuthenticated by: Mershed AlsamaraReport Date/Time: [...] | |TAPSE: 1.67 cm | |AR Dec [place]: 1.62 m/s2 | |AR Dec Time: 2122.29 [...] |RV s': 0.10 m/s | | | |Chief Librarian Circulation Department: DBS | |Authenticated by: Vikki Bobby | [...]
--- OUTSIDE RECORDS SUMMARY | ~2020-03-21 | XMS | Encounter Summary ---
Demographics + + + | Address | [address] | | | [place] [address] | + + + | Home Phone | | + + + | Preferred Language | Unknown | + + + | Marital Status | | + + + | Orthodox Affiliation | 1001 | + + + | Race | Unknown | + + + | Ethnic Group | Unknown | + + + Author + + + | Author | [facility] | | | and [place] | + + + | Organization | [facility] | | [...] [place] | | | | | [address] | | + + + + + | Deanna Lawson | ECON | Unknown | | + + + + + Care Team Providers + +------+ + | Care Scout Sniper Name | Role | Phone | + [...] + + | 03/16/ | Telephone | [facility] | Melquiades Baez | Screening For | | 2019 | | ORTHO SPORTS | [address] | Communicable Disease | | | | MEDICINE CELESTE | [facility] | | | | | [address] [facility] | [place] [address] | | | | | [place], [place] | [phone] | | | | | [address] | | | | | | [phone] | | | +--------+ + + + [...] Miscellaneous Notes Telephone Encounter - Meghana Garg, Counter Sales Representative - 03/16/2020 9:57 AM PDT Proactive screening [...] before you arrive at the clinic. Following [facility] guidelines, masking is required when you receive care at a [facility] site. If you are unable to wear [...] | | | | | [place] [address] | | | | | | [phone] | | | | | | | | +--------+ + + + + | 03/24/ | Hospital | | Anna Edouard, | Esophagitis | | 2020 | Encounter | | MD [address] | | | | | | [place] [address] | | | | | | [phone] | | | | | | | | +--------+ + + + + | 03/24/ | Surgery | | Anna Edouard, | EGD | | 2020 | | | MD [address] | | | | | | [place] [address] | | | | | | [phone] | | | | | | | | +--------+ + + + + | 03/31/ | Office | Orthopedic Surgery | Melquiades Baez | | | 2019 | Visit | | [address] | | | | | | [place] | | | | | | [place] [address] | | | | | | [phone] | | | | | | | | +--------+ + + + + | 04/21/ | Office | Nephrology | Isiah Jade MD | | | 2019 | Visit | | [address] | | | | | | [address] | | | | | | [address] | | | | | | | | +--------+ + + + + | 05/07/ | Office | Cardiology | Charlee Oswald | | | 2019 | Visit | | [address] | | | | | | [address] | | | | | | [place] [address] | | | | | | [phone] | | | | | | | | +--------+ + + + + documented as of this encounter Visit Diagnoses Not on filedocumented in this encounter"
--- OUTSIDE RECORDS SUMMARY | ~2020-03-21 | XMS | Encounter Summary ---
Demographics + + + | Address | [address] | | | [place] [address] | + + + | Home Phone [...] [place] | | | | | [address] | | + + + + + | Deanna Lawson | ECON | Unknown | | + + + + + Care Team Providers + +------+ + | Care Piercing Artist Name | Role | Phone | [...] + + | 01/26/ | Documentati | [facility] | Nelson, | Other (PCP progress | | 2020 | on | NEPHROLOGY JESSI | Kita Sterling | note 01/23/20) | | | | [address] | Pusher Operator | | | | | [address] [place] [address] | | | | | | [address] | | | | | | [phone] | | | +--------+ + + + [...] [address] | | | | | | [place] [address] | | | | | | [phone] | | | | | | | | +--------+ + + + + | 03/24/ | Hospital | | Anna Edouard, | Esophagitis | | 2019 | Encounter | | MD [address] | | | | | | [place] [address] | | | | | | [phone] | | | | | | | | +--------+ + + + + | 03/24/ | Surgery | | Anna Edouard, | EGD | | 2019 | | | MD [address] | | | | | | [place] [address] | | | | | | [phone] | | | | | | | | +--------+ + + + + | 03/31/ | Office | Orthopedic Surgery | Melquiades Baez | | | 2019 | Visit | | [address] | | | | | | [place], | | | | | | [place] [address] | | | | | | [phone] | | | | | | | | +--------+ + + + + | 04/21/ | Office | Nephrology | Isiah Jade MD | | | 2019 | Visit | | [address] | | | | | | [address] | | | | | | [address] | | | | | | | | +--------+ + + + + | 05/07/ | Office | Cardiology | Charlee Oswald | | | 2020 | Visit | | [address] | | | | | | [address] | | | | | | [place] [address] | | | | | | [phone] | | | | | | | | +--------+ + + + + documented as of this encounter Visit Diagnoses Not on filedocumented in this encounter"
--- OUTSIDE RECORDS SUMMARY | ~2020-03-21 | XMS | Encounter Summary ---
Demographics + + + | Address | [address] | | | [place] [address] | + + + | Home Phone [...] [place] | | | | | [address] | | + + + + + | Deanna Lawson | ECON | Unknown | | + + + + + Care Team Providers + +------+ + | Care Commercial Lease Administrator Name | Role | Phone | [...] + + | 01/30/ | Telephone | [facility] | Melquiades Baez | Other | | 2019 | | ORTHO SPORTS | DO [address] | | | | | MEDICINE CELESTE | [facility] | | | | | [facility] | [place] [address] | | | | | [place], [place] | [phone] | | | | | [address] | | | | | | [phone] | | | +--------+ + + + [...] [address] | | | | | | [place] [address] | | | | | | [phone] | | | | | | | | +--------+ + + + + | 03/24/ | Hospital | | Anna Edouard, | Esophagitis | | 2020 | Encounter | | MD [address] | | | | | | [place] [address] | | | | | | [phone] | | | | | | | | +--------+ + + + + | 03/24/ | Surgery | | Anna Edouard, | EGD | | 2019 | | | MD [address] | | | | | | [place] [address] | | | | | | [phone] | | | | | | | | +--------+ + + + + | 03/31/ | Office | Orthopedic Surgery | Melquiades Baez | | | 2019 | Visit | | DO [address] | | | | | | [place], | | | | | | [place] [address] | | | | | | [phone] | | | | | | | | +--------+ + + + + | 04/21/ | Office | Nephrology | Isiah Jade MD | | | 2019 | Visit | | [address] | | | | | | [address] | | | | | | [address] | | | | | | | | +--------+ + + + + | 05/07/ | Office | Cardiology | Charlee Oswald | | | 2019 | Visit | | [address] | | | | | | [address] | | | | | | [place] [address] | | | | | | [phone] | | | | | | | | +--------+ + + + + documented as of this encounter Visit Diagnoses Not on filedocumented in this encounter"
--- OUTSIDE RECORDS SUMMARY | ~2020-03-21 | XMS | Encounter Summary ---
Demographics + + + | Address | [address] | | | [place] [address] | + + + | Home Phone [...] [place] | | | | | [address] | | + + + + + | Deanna Lawson | ECON | Unknown | | + + + + + Care Team Providers + +------+ + | Care Sticker Hand Name | Role | Phone | [...] + + | 02/19/ | Telephone | [facility] | Isiah Jade MD | Other (Lab Results ) | | 2019 | | NEPRHOLOGY [place] | [address] | | | | | [address] | [address] [place], [place] | | | | | [address] [place], [place] | [address] | | | | | [address] | | | | | | [phone] | | | +--------+ + + + [...] | | | | | [place] [address] | | | | | | [phone] | | | | | | | | +--------+ + + + + | 03/24/ | Hospital | | Anna Edouard, | Esophagitis | | 2019 | Encounter | | MD [address] | | | | | | [place] [address] | | | | | | [phone] | | | | | | | | +--------+ + + + + | 03/24/ | Surgery | | Anna Edouard, | EGD | | 2019 | | | MD [address] | | | | | | [place] [address] | | | | | | [phone] | | | | | | | | +--------+ + + + + | 03/31/ | Office | Orthopedic Surgery | Melquiades Baez | | | 2019 | Visit | | DO [address] | | | | | | [place], | | | | | | [place] [address] | | | | | | [phone] | | | | | | | | +--------+ + + + + | 04/21/ | Office | Nephrology | Isiah Jade MD | | | 2019 | Visit | | [address] | | | | | | [address] [place] | | | | | | [address] | | | | | | | | +--------+ + + + + | 05/07/ | Office | Cardiology | Charlee Oswald | | | 2019 | Visit | | [address] | | | | | | [address] | | | | | | [place] [address] | | | | | | [phone] | | | | | | | [...]
--- OUTSIDE RECORDS SUMMARY | ~2020-03-21 | XMS | Encounter Summary ---
Demographics + + + | Address | [address] | | | [place] [address] | + + + | Home Phone [...] [place] | | | | | [address] | | + + + + + | Deanna Lawson | ECON | Unknown | | + + + + + Care Team Providers + +------+ + | Care Copyholder Name | Role | Phone | + +------+ + | Barbara Gilman MD | PCP | | + +------+ + Encounter Details +--------+ + + + + | Date | Type | Department | Care Team | Description | +--------+ + + + + | 02/17/ | Hospital | [facility] | Melquiades Baez | Right hip pain | | 2019 | Encounter | [facility] [address] | [address] | | | | | [address] | [address], | | | | | [place], [place] | [place] [address] | | | | | [address] | [phone] | | | | | [phone] | | | +--------+ + + + [...] | | | | | | [place] [address] | | | | | | [phone] | | | | | | | | +--------+ + + + + | 03/24/ | Hospital | | Anna Edouard, | Esophagitis | | 2019 | Encounter | | [address] | | | | | | [place] [address] | | | | | | [phone] | | | | | | | | +--------+ + + + + | 03/24/ | Surgery | | Anna Edouard, | EGD | | 2019 | | | [address] | | | | | | [place] [address] | | | | | | [phone] | | | | | | | | +--------+ + + + + | 03/31/ | Office | Orthopedic Surgery | Melquiades Baez | | | 2019 | Visit | | [address] | | | | | | [place] | | | | | | [place] [address] | | | | | | [phone] | | | | | | | | +--------+ + + + + | 04/21/ | Office | Nephrology | Isiah Jade MD | | | 2019 | Visit | | [address] | | | | | | [address] [place] | | | | | | [address] | | | | | | | | +--------+ + + + + | 05/07/ | Office | Cardiology | Charlee Oswald | | | 2019 | Visit | | [address] | | | | | | [address] | | | | | | [place] [address] | | | | | | [phone] | | | | | | | [...] created this | | | entry using [employer] Recognition software and [employer] | | | macros. The entry has been reviewed and there may still exist sound | | | alike word errors. | | | | | |Electronically signed by: Melquiades Baez DO 02/18/2020 1:54 PM PDT | | | | | | | | |Melquiades Baez DO has created this entry using [employer] | | |Recognition software and [employer] macros. The entry has been reviewed and [...]
--- OUTSIDE RECORDS SUMMARY | ~2020-03-21 | XMS | Encounter Summary ---
Demographics + + + | Address | [address] | | | [place] [address] | + + + | Home Phone [...] [place] | | | | | [address] | | + + + + + | Deanna Lawson | ECON | Unknown | | + + + + + Care Team Providers + +------+ + | Care Cash On Delivery Clerk Name | Role | Phone | [...] + + | 02/12/ | Documentati | [facility] | Silva Paz, | Results | | 2019 | on | NEPRHOLOGY [facility]YS | Cardiac Cath Rn | (interpath-02/04/2020 | | | | [address] | | ) | | | | [address] [place], [place] | | | | | | [address] | | | | | | [phone] | | | +--------+ + + + [...] | | | | | [place] [address] | | | | | | [phone] | | | | | | | | +--------+ + + + + | 03/24/ | Hospital | | Anna Edouard, | Esophagitis | | 2019 | Encounter | | MD [address] | | | | | | [place] [address] | | | | | | [phone] | | | | | | | | +--------+ + + + + | 03/24/ | Surgery | | Anna Edouard, | GRUPOD | | 2019 | | | [address] | | | | | | [place] [address] | | | | | | [phone] | | | | | | | | +--------+ + + + + | 03/31/ | Office | Orthopedic Surgery | Melquiades Baez | | | 2019 | Visit | | DO [address] | | | | | | [place], | | | | | | [place] [address] | | | | | | [phone] | | | | | | | | +--------+ + + + + | 04/21/ | Office | Nephrology | Isiah Jade MD | | | 2019 | Visit | | [address] [facility] | | | | | | [address] | | | | | | [address] | | | | | | | | +--------+ + + + + | 05/07/ | Office | Cardiology | Charlee Oswald | | | 2019 | Visit | | [address] | | | | | | [address] | | | | | | [place] [address] | | | | | | [phone] | | | | | | | [...]
--- OUTSIDE RECORDS SUMMARY | ~2020-03-21 | XMS | Encounter Summary ---
Demographics + + + | Address | [address] | | | [place] [address] | + + + | Home Phone [...] [place] | | | | | [address] | | + + + + + | Deanna Lawson | ECON | Unknown | | + + + + + Care Team Providers + +------+ + | Care Social Media Marketing Specialist Name | Role | Phone | [...] + + | 12/21/ | Anesthesia | [facility] | Ja Hill, | | | 2019 | Event | [facility] | GUITAR INSTRUCTOR [address] | | | | | OPER[address] | [place] [address] | | | | | [address] | [phone] | | | | | [place] | | | | | | [address] | | | | | | [phone] | | | +--------+ + + + [...] +----+---+ + + | | 0 | [place] | | | | 9 | 43-degrees [...] Proximal; Forearm; | Sendy Smith RN | Savnaa Bowden RN | | IV | [id number]-cgfilp catheter system; | | | | | [...] EVALUATION Andres Guzmán 89 y.o. male 1930 [id number] Procedure(s) NAILING IM BETSY FEMUR - GAMMA [...] by Ja Hill CRNA 12/22/2019 10:41 AM [facility] C[facility] [...] EVALUATION Andres Guzmán 89 y.o. male 1930 [id number] Procedure(s): NAILING IM BETSY FEMUR - GAMMA [...] Blood transfusion concerns: None. Discussed plan with GUITAR INSTRUCTOR. documented in this e ncounter Miscellaneous Notes Anesthesia Post-op Handoff - Ja Hill CRNA - 12/22/2019 10:38 AM PDTFormatting of th is note might be different from the original. ANESTHESIA HANDOFF NOTE Andres Guzmán 89 y.o. male 1930 [id number] NAILING IM BETSY FEMUR - GAMMA NAIL [...] were reviewed with the receiving team. Ja iHll CRNA 12/22/2019 10:38 AM [facility] Ja Hill CRNA at 0 [...] [address] | | | | | | [place] [address] | | | | | | [phone] | | | | | | | | +--------+ + + + + | 03/24/ | Hospital | | Anna Edouard, | Esophagitis | | 2020 | Encounter | | MD [address] | | | | | | [place] [address] | | | | | | [phone] | | | | | | | | +--------+ + + + + | 03/24/ | Surgery | | Anna Edouard, | EGD | | 2020 | | | MD [address] | | | | | | [place] [address] | | | | | | [phone] | | | | | | | | +--------+ + + + + | 03/31/ | Office | Orthopedic Surgery | Melquiades Baez | | | 2019 | Visit | | [address] | | | | | | [place], | | | | | | [place] [address] | | | | | | [phone] | | | | | | | | +--------+ + + + + | 04/21/ | Office | Nephrology | Isiah Jade MD | | | 2019 | Visit | | [address] | | | | | | [address] [place] | | | | | | [address] | | | | | | | | +--------+ + + + + | 05/07/ | Office | Cardiology | Charlee Oswald | | | 2019 | Visit | | [address] | | | | | | [place] | | | | | | [place] [address] | | | | | | [phone] | | | | | | | [...]
--- OUTSIDE RECORDS SUMMARY | ~2020-03-21 | XMS | Encounter Summary ---
Demographics + + + | Address | [address] | | | [place] [address] | + + + | Home Phone [...] [place] | | | | | [address] | | + + + + + | Deanna Lawson | ECON | Unknown | | + + + + + Care Team Providers + +------+ + | Care Db2 Systems Programmer Name | Role | Phone | + [...] + + | 01/05/ | Documentati | [facility] | [place], | Other (Dr. Jade | | 2020 | on | NEPHROLOGY JESSI | [facility] | orders) | | | | [address] | Food Safety Specialist | | | | | [address] [place], [place] | | | | | | [address] | | | | | | [phone] | | | +--------+ + + + [...] | | | | | [place] [address] | | | | | | [phone] | | | | | | | | +--------+ + + + + | 03/24/ | Hospital | | Anna Edouard, | Esophagitis | | 2019 | Encounter | | MD [address] | | | | | | [place] [address] | | | | | | [phone] | | | | | | | | +--------+ + + + + | 03/24/ | Surgery | | Anna Edouard | EGD | | 2019 | | | [address] | | | | | | [place] [address] | | | | | | [phone] | | | | | | | | +--------+ + + + + | 03/31/ | Office | Orthopedic Surgery | Melquiades Baez | | | 2019 | Visit | | [address] | | | | | | [place], | | | | | | [place] [address] | | | | | | [phone] | | | | | | | | +--------+ + + + + | 04/21/ | Office | Nephrology | Isiah Jade MD | | | 2019 | Visit | | [address] | | | | | | [address] [place] | | | | | | [address] | | | | | | | | +--------+ + + + + | 05/07/ | Office | Cardiology | Charlee Oswald | | | 2020 | Visit | | [address] | | | | | | [place] | | | | | | [place] [address] | | | | | | [phone] | | | | | | | | +--------+ + + + + documented as of this encounter Visit Diagnoses Not on filedocumented in this encounter"
--- OUTSIDE RECORDS SUMMARY | ~2020-03-21 | XMS | Encounter Summary ---
Demographics + + + | Address | [address] | | | [place] [address] | + + + | Home Phone [...] [place] | | | | | [address] | | + + + + + | Deanna Lawson | ECON | Unknown | | + + + + + Care Team Providers + +------+ + | Care Vehicle Damage Appraiser Name | Role | Phone | + +------+ + PCP | Unavailable | + +------+ + Encounter Details +--------+ + + + + | Date | Type | Department | Care Team | Description | +--------+ + + + + | 08/29/ | Orders Only | [facility] | Conversion | | | 2018 | | CARDIOLOGY [place] | Transaction, | | | | | [address] | Provider Unknown | | | | | [place], [place] | [phone] | | | | | [address] | | | | | | [phone] | | | +--------+ + + + [...] | | | | | [place] [address] | | | | | | [phone] | | | | | | | | +--------+ + + + + | 03/24/ | Hospital | | Anna Edouard, | Esophagitis | | 2020 | Encounter | | MD [address] | | | | | | [place] [address] | | | | | | [phone] | | | | | | | | +--------+ + + + + | 03/24/ | Surgery | | Anna Edouard | EGD | | 2019 | | | [address] | | | | | | [place] [address] | | | | | | [phone] | | | | | | | | +--------+ + + + + | 03/31/ | Office | Orthopedic Surgery | Melquiades Baez | | | 2019 | Visit | | [address] | | | | | | [place], | | | | | | [place] [address] | | | | | | [phone] | | | | | | | | +--------+ + + + + | 04/21/ | Office | Nephrology | Isiah Jade MD | | | 2019 | Visit | | [address] [facility] | | | | | | [address] [place] | | | | | | [address] | | | | | | | | +--------+ + + + + | 05/07/ | Office | Cardiology | Darek Charlee | | | 2019 | Visit | | [address] | | | | | | [address] [address] | | | | | | [place] [address] | | | | | | [phone] | | | | | | | [...]
[~2020-03-21 02:38] MED LIST changes: +CALCIUM + VITA1 EACH PO; +CEPHALEXIN500 MG PO; +PANTOPRAZOLE SO40 MG PO; +VITAMIN E400 UNI4 PO
--- OUTSIDE RECORDS SUMMARY | 2020-03-21 02:40 | XMS ---
PreManage Notification: DESIREE MCCONNELL Security Rate Engineer Events No recent Security Events currently on file CRITERIA MET - [facility] - 2 Visits in 30 Days CARE PROVIDERS There are no care providers on record at this time. Sherine has no Care Guidelines for this patient. Nicole VISIT COUNT (12 MO.) 5 [facility] [place] [facility]. TOTAL 5 NOTE: Visits indicate total known visits. ED/C VISIT TRACKING (12 MO.) 03/21/2020 02:[address] [facility] [place] TYPE: Emergency COMPLAINT: - STOMACH CRAMPS 03/05/2020 23:07 [facility] [place] TYPE: Emergency COMPLAINT: - SYNCOPE 01/27/2020 14:45 [facility] [place] TYPE: Emergency COMPLAINT: - ABDOM PAIN DIAGNOSES: - Heart failure, unspecified - Allergy status to narcotic agent status - Constipation, unspecified - Pure hypercholesterolemia, unspecified - Other nursing home (current) drug therapy - Unspecified abdominal pain - Retention of urine, unspecified - Other ascites - Hypertensive heart disease with heart failure - Type 2 diabetes mellitus without complications 12/21/2019 14:36 [facility] [place] TYPE: Emergency COMPLAINT: - HIP PAIN/FALL DIAGNOSES: - Pain in right hip - Displaced intertrochanteric fracture of right femur, initial - Other nursing home (current) drug therapy - Hypertensive heart disease with heart failure - Fall on same level from slipping, tripping and stumbling with - Personal history of nicotine dependence - Type 2 diabetes mellitus without complications - Allergy status to narcotic agent status - Heart failure, unspecified - Hypertensive heart and chronic kidney disease with heart fail - Pure hypercholesterolemia, unspecified 09/26/2019 08:57 [facility] [place] TYPE: Emergency COMPLAINT: - KIDNEY PROBLEMS DIAGNOSES: - Other nursing home (current) drug therapy - Thrombocytopenia, unspecified - casting wheel operator helper (current) use of oral hypoglycemic drugs - Chronic kidney disease, unspecified - Allergy status to narcotic agent status - Personal history of nicotine dependence - Type 2 diabetes mellitus with diabetic chronic kidney disease - Personal history of transient ischemic attack (TIA), and cere - Anemia, unspecified - Hypertensive heart and chronic kidney disease with heart fail INPATIENT VISIT TRACKING (12 MO.) 03/08/2020 09:15 [facility] [place] TYPE: Medical Surgical COMPLAINT: - SYNCOPE DIAGNOSES: - Chronic atrial fibrillation, unspecified - Hyperlipidemia, unspecified - Syncope and collapse - Pulmonary hypertension, unspecified - Pulmonary hypertension, unspecified - Do not resuscitate - Rheumatic tricuspid insufficiency - Urinary tract infection, site not specified - Enterococcus as the cause of diseases classified elsewhere - Urinary tract infection, site not specified - Hypertensive heart and chronic kidney disease with heart fail - Rheumatic tricuspid insufficiency - Anemia in chronic kidney disease - Personal history of transient ischemic attack (TIA), and cere - Contact with and (suspected) exposure to other viral communic - Chronic atrial fibrillation, unspecified - Adverse effect of beta-adrenoreceptor antagonists, initial en - Allergy status to other drugs, medicaments and biological sub - Acute on chronic diastolic (congestive) heart failure - Type 2 diabetes mellitus with diabetic chronic kidney disease - Alcoholic cirrhosis of liver without ascites - Hyperlipidemia, unspecified - Allergy status to narcotic agent status - Personal history of transient ischemic attack (TIA), and cere - Contact with and (suspected) exposure to other viral communic - Type 2 diabetes mellitus with diabetic chronic kidney disease - Presence of cardiac pacemaker - Allergy status to other drugs, medicaments and biological sub - Alcoholic cirrhosis of liver without ascites - Chronic kidney disease, unspecified - Chronic kidney disease, unspecified - Syncope and collapse - Presence of cardiac pacemaker - Allergy status to narcotic agent status - Enterococcus as the cause of diseases classified elsewhere - Do not resuscitate - Anemia in chronic kidney disease - Adverse effect of beta-adrenoreceptor antagonists, initial en - Hypertensive heart and chronic kidney disease with heart fail 01/01/2020 13:[address] [facility] [place] TYPE: Medical Surgical COMPLAINT: - ORF, RIGHT HIP FRACTURE DIAGNOSES: - Chronic atrial fibrillation, unspecified - Personal history of nicotine dependence - Chronic kidney disease, stage 3 (moderate) - Hypertensive chronic kidney disease with stage 1 through stag - Acute duodenal ulcer with hemorrhage - Alcoholic cirrhosis of liver without ascites - Chronic diastolic (congestive) heart failure - Hypertensive chronic kidney disease with stage 1 through stag - Other specified postprocedural states - Displaced intertrochanteric fracture of right femur, subseque - Rheumatic tricuspid insufficiency - casting wheel operator helper (current) use of oral hypoglycemic drugs - Anemia in chronic kidney disease - Type 2 diabetes mellitus with diabetic chronic kidney disease - Chronic atrial fibrillation, unspecified - Allergy status to narcotic agent status - Presence of cardiac pacemaker - Chronic kidney disease, stage 3 (moderate) - Hyperuricemia without signs of inflammatory arthritis and top - 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 - Other oceanic sciences professor (current) drug therapy - correction (current) use of antithrombotics/antiplatelets - Personal history of nicotine dependence - Difficulty in walking, not elsewhere classified - Alcoholic cirrhosis of liver without ascites - Other specified postprocedural states - casting wheel operator helper (current) use of inhaled steroids - Pulmonary hypertension, unspecified - casting wheel operator helper (current) use of antithrombotics/antiplatelets - Presence of cardiac pacemaker - Anemia in chronic kidney disease - Difficulty in walking, not elsewhere classified - Chronic diastolic (congestive) heart failure - Other oceanic sciences professor (current) drug therapy - Type 2 diabetes mellitus with diabetic chronic kidney disease - correction (current) use of oral hypoglycemic drugs - Hyperlipidemia, unspecified - Unspecified asthma, uncomplicated - Allergy status to narcotic agent status - Hyperuricemia without signs of inflammatory arthritis and top - Acute duodenal ulcer with hemorrhage - Rheumatic tricuspid insufficiency - 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 - Unspecified asthma, uncomplicated - Pulmonary hypertension, unspecified - Hyperlipidemia, unspecified [facility] DIAGNOSES: - Chronic kidney disease, stage 3 (moderate) - Acute kidney failure, unspecified - Chronic kidney disease, stage 4 (severe) - Displaced intertrochanteric fracture of right femur, subseque - Anemia, unspecified - Gastrointestinal hemorrhage, unspecified - Chronic diastolic (congestive) heart failure - Acidosis - Other sequelae of cerebral infarction - Other symptoms and signs involving the nervous system - Other disorders of plasma-protein metabolism, not elsewhere c - Permanent atrial fibrillation - Acute kidney failure with tubular necrosis - Hyperkalemia [email or web address]
--- NOTE | 2020-03-21 13:13 | EKG ---
[facility] [address] [place] [address] Signed Ventricular-paced rhythm with occasional supraventricular complexes Abnormal ECG When compared with ECG of 05-MAR-2020 23:13, premature ventricular complexes are no longer present Vent. rate has decreased BY 2 BPM Confirmed by GUILLERMO DIAZ DO ([id number]) on 03/21/2020 1:13:29 PM Electronically Signed By: GUILLERMO DIAZ DO 03/21/20 1313 PATIENT NAME: DESIREE MCCONNELL Electrocardiogram DATE OF : 34 PHYSICIAN: GUILLERMO DIAZ DO REPORT #: [id number] REPORT IS CONFIDENTIAL AND NOT TO BE RELEASED WITHOUT AUTHORIZATION
== END 2020-03-21 06:15 | disposition home or self-care (01) ==
LOC: ED 02:38
DX: H81.11 Benign paroxysmal vertigo, right ear (principal); I11.0 Hypertensive heart disease with heart failure; I50.9 Heart failure, unspecified; I48.91 Unspecified atrial fibrillation; E11.9 Type 2 diabetes mellitus without complications; Z79.01 Long term (current) use of anticoagulants; Z86.73 Personal history of transient ischemic attack (TIA), and cerebral infarction without residual deficits; Z91.048 Other nonmedicinal substance allergy status; Z88.5 Allergy status to narcotic agent; Z88.8 Allergy status to other drugs, medicaments and biological substances; Z79.899 Other long term (current) drug therapy; Z79.84 Long term (current) use of oral hypoglycemic drugs
CPT/HCPCS: 70450; 74018; 80053; 81001; 83690; 83735; 84484; 85025; 93005; 93010; 96360; 99285-25; J7030

== ENCOUNTER 2020-03-21 11:47 | Inpatient (IN) | payer MEDICARE, OTHER ==
[~2020-03-21] VITALS: Ht 165.1 cm; Wt 80.2 kg
--- OUTSIDE RECORDS SUMMARY | ~2020-03-21 | XMS | Encounter Summary ---
Demographics + + + | Address | [address] | | | [place] [address] | + + + | Home Phone | | + + + | Preferred Language | Unknown | + + + | Marital Status | | + + + | Anabaptist Affiliation | [id number] | + + + | Race | Unknown | + + + | Ethnic Group | Unknown | + + + Author + + + | Author | [facility] | | | and [place] | + + + | Organization | [facility] | | | and [place] | + + + | Address | Unknown | + + + | Phone | Unavailable | + + + Support + + + + + | Name | Relationship | Address | Phone | + + + + + | Marissa Guzmán | ECON | [address] | | | | | [place] | | | | | [address] | | + + + + + | Deanna Lawson | ECON | Unknown | | + + + + + Care Team Providers + +------+ + | Care Golf Shoe Spike Assembler Name | Role | Phone | + +------+ + | Barbara Gilman MD | PCP | | + +------+ + Reason for Visit +--------+ + | Reason | Comments | +--------+ + | Other | Dr. Kalie barnes | +--------+ + Encounter Details +--------+ + + + + | Date | Type | Department | Care Team | Description | +--------+ + + + + | 01/05/ | Documentati | [facility] | [place], | Other (Dr. Jade | | 2020 | on | NEPHROLOGY JESSI | [facility] | orders) | | | | [address] | Truck Rental Service Attendant | | | | | [address] [place], [place] | | | | | | [address] | | | | | | [phone] | | | +--------+ + + + + Social History + +-------+ +--------+ + | Tobacco Use | Types | Packs/Day | Years | Date | | | | | Used | | + +-------+ +--------+ + | Former Smoker | | 0.75 | 37 | Quit: 1982 | + +-------+ +--------+ + + +---+---+---+ | Smokeless Tobacco: | | | | | Never Used | | | | + +---+---+---+ + + +---------+ + | Alcohol Use | Drinks/Week | oz/Week | Comments | + + +---------+ + | Not Currently | | | Alcoholic | | | | | Drinks/day: drank | | | | | heavily for 10 years | | | | | in his past | + + +---------+ + + + + | Sex Assigned at | Date Recorded | | | | + + + | Male | | + + + documented as of this encounter Plan of Treatment +--------+ + + + + | Date | Type | Specialty | Care Team | Description | +--------+ + + + + | 03/23/ | Preadmit | Pre-Admission | Anna Edouard, | | | 2019 | Visit | Testing | MD [address] | | | | | | [place] [address] | | | | | | [phone] | | | | | | | | +--------+ + + + + | 03/24/ | Hospital | | Anna Edouard, | Esophagitis | | 2019 | Encounter | | MD [address] | | | | | | [place] [address] | | | | | | [phone] | | | | | | | | +--------+ + + + + | 03/24/ | Surgery | | Anna Edouard | EGD | | 2019 | | | [address] | | | | | | [place] [address] | | | | | | [phone] | | | | | | | | +--------+ + + + + | 03/31/ | Office | Orthopedic Surgery | Melquiades Baez | | | 2019 | Visit | | DO [address] | | | | | | [place], | | | | | | [place] [address] | | | | | | [phone] | | | | | | | | +--------+ + + + + | 04/21/ | Office | Nephrology | Isiah Jade MD | | | 2019 | Visit | | [address] | | | | | | [address] [place] | | | | | | [address] | | | | | | | | +--------+ + + + + | 05/07/ | Office | Cardiology | Charlee Oswald | | | 2020 | Visit | | [address] | | | | | | [place] | | | | | | [place] [address] | | | | | | [phone] | | | | | | | | +--------+ + + + + documented as of this encounter Visit Diagnoses Not on filedocumented in this encounter"
--- OUTSIDE RECORDS SUMMARY | ~2020-03-21 | XMS | Encounter Summary ---
Demographics + + + | Address | [address] | | | [place] [address] | + + + | Home Phone | | + + + | Preferred Language | Unknown | + + + | Marital Status | | + + + | Hindu Affiliation | 1001 | + + + | Race | Unknown | + + + | Ethnic Group | Unknown | + + + Author + + + | Author | [facility] | | | and [place] | + + + | Organization | [facility] | | | and [...] [place] | | | | | [address] | | + + + + + | Deanna Lawson | ECON | Unknown | | + + + + + Care Team Providers + +------+ + | Care Core Paster Name | Role | Phone | + +------+ + | Barbara Gilman MD | PCP | | + +------+ + Encounter Details +--------+ + + + + | Date | Type | Department | Care Team | Description | +--------+ + + + + | 09/08/ | Orders Only | [facility] | Todd Iqbal Ajith | | | 2016 | | CARDIOLOGY [place] | MD [address] | | | | | [address] | [address] | | | | | [address] | [place] [address] | | | | | [place], [place] | [phone] | | | | | [address] | | | | | | [phone] | | | +--------+ + + + [...] | | | | | [place] [address] | | | | | | [phone] | | | | | | | | +--------+ + + + + | 03/24/ | Hospital | | Anna Edouard, | Esophagitis | | 2020 | Encounter | | MD [address] | | | | | | [place] [address] | | | | | | [phone] | | | | | | | | +--------+ + + + + | 03/24/ | Surgery | | Anna Edouard, | VANDANA | | 2019 | | | [address] | | | | | | [place] [address] | | | | | | [phone] | | | | | | | | +--------+ + + + + | 03/31/ | Office | Orthopedic Surgery | Melquiades Baez | | | 2019 | Visit | | [address] | | | | | | [address], | | | | | | [place] [address] | | | | | | [phone] | | | | | | | | +--------+ + + + + | 04/21/ | Office | Nephrology | Isiah Jade MD | | | 2019 | Visit | | [address] [facility] | | | | | | [address] [place] | | | | | | [address] | | | | | | | | +--------+ + + + + | 05/07/ | Office | Cardiology | Charlee Oswald | | | 2019 | Visit | | [address] | | | | | | [address] | | | | | | [place] [address] | | | | | | [phone] | | | | | | | | +--------+ + + + + documented as of this encounter Procedures + +--------+ + + + | Procedure Name | Priori | Date/Time | Associated Diagnosis | Comments | | | ty | | | | + +--------+ + + + | NM NUCLEAR STRESS | Routin | 09/08/2015 | | Results for this | | TEST (PHARMACOLOGIC | e | 11:38 AM | | procedure are in the | | - VASODILATOR) | | PST | | results section. | + +--------+ + + + documented in this encounter Results NM Nuclear Stress Test (Vasodilator) (09/08/2015 11:38 AM PST) + + | Specimen | + + | | + + + + + | Impressions | Performed At | + + + | 1. Normal study. No evidence of ischemia or infarction. LVEF | | | 64 % 2. Stress ECG: Paced rhythm precludes ECG diagnosis. 3. | | | Occasional PVCs detected. 4. No Lexiscan induced chest pain. 5. | | | No previous test for comparison. | | + + + + + + | Narrative | Performed At | + + + | [facility] Nuclear Lexiscan Stress Test History: | | | 85 Year old male being evaluated for atrial fibrillation. Rest | | | Data: HR: 60 bpm BP: 134 /48 Baseline ECG: Ventricular demand | | | pacing, occasional PVCs. Stress Data: HR: 78 bpm BP: 143/54 | | | Reaction to Lexiscan: shortness of breath, headache, dizzy, nausea | | | Stress ECG: Paced rhythm precludes ECG diagnosis. Arrhythmias: | | | Occasional PVCs observed Myocardial Perfusion: Images are | | | adequate for interpretation. No significant RV or lung uptake No | | | evidence of perfusion defect. SSS: 0 SRS: 2 SDS: 0 TID: 0.88 | | | Gated Images: Rest EDV: 166 mL Rest ESV: 64 mL Rest EF: 61 % Stress | | | EDV: 162 mL Stress ESV: 58 mL Stress EF: 64 % No evidence of regional | | | wall motion abnormality Procedure: 10.2 mCi of 99m Tc Myoview | | | was given intravenously for rest images. 29.7 mCi of 99m Tc Myoview | | | was given intravenously for stress images at 0:35. Effective Dose | | | Equivalent 13.7 mSv The patient received 0.4mg Lexiscan | | | intravenously. Aminophylline 50mg was yes given. | | + + + + + | Procedure Note | + + | Kobe, Leonides Conversion - 04/11/2019 9:03 PM [facility] | | Nuclear Lexiscan Stress Test | | | | History: | | 85 Year old male being evaluated for atrial fibrillation. | | | | Rest Data: | | HR: 60 bpm BP: 134 /48 | | Baseline ECG: Ventricular demand pacing, occasional PVCs. | | | | Stress Data: | | HR: 78 bpm BP: 143/54 | | Reaction to Lexiscan: shortness of breath, headache, dizzy, nausea | | Stress ECG: Paced rhythm precludes ECG diagnosis. | | Arrhythmias: Occasional PVCs observed | | | | Myocardial Perfusion: | | Images are adequate for interpretation. | | No significant RV or lung uptake | | No evidence of perfusion defect. | | SSS: 0 SRS: 2 SDS: 0 TID: 0.88 | | | | Gated Images: | | Rest EDV: 166 mL Rest ESV: 64 mL Rest EF: 61 % | | Stress EDV: 162 mL Stress ESV: 58 mL Stress EF: 64 % | | No evidence of regional wall motion abnormality | | | | Procedure: | | 10.2 mCi of 99m Tc Myoview was given intravenously for rest images. | | 29.7 mCi of 99m Tc Myoview was given intravenously for stress images at 0:35. | | Effective Dose Equivalent 13.7 mSv | | The patient received 0.4mg Lexiscan intravenously. | | Aminophylline 50mg was yes given. | | | | IMPRESSION: | | 1. Normal study. No evidence of ischemia or infarction. LVEF 64 % | | 2. Stress ECG: Paced rhythm precludes ECG diagnosis. | | 3. Occasional PVCs detected. | | 4. No Lexiscan induced chest pain. | | 5. No previous test for comparison. | | | | | + + documented in this encounter Visit Diagnoses Not on filedocumented in this encounter"
--- OUTSIDE RECORDS SUMMARY | ~2020-03-21 | XMS | Encounter Summary ---
Demographics + + + | Address | [address] | | | [place] [address] | + + + | Home Phone | | + + + | Preferred Language | Unknown | + + + | Marital Status | | + + + | Mu-Ism Affiliation | 1001 | + + + | Race | Unknown | + + + | Ethnic Group | Unknown | + + + Author + + + | Author | [facility] | | | and [place] | + + + | Organization | [facility] | | | [...] [place] | | | | | [address] | | + + + + + | Deanna Lawson | ECON | Unknown | | + + + + + Care Team Providers + +------+ + | Care Pallet Sorter Name | Role | Phone | + +------+ + | Barbara Gilman MD | PCP | | + +------+ + Encounter Details +--------+ + + + + | Date | Type | Department | Care Team | Description | +--------+ + + + + | 01/30/ | Orders Only | [facility] | Isiah Jade MD | Hypertension goal BP | | 2020 | | NEPHROLOGY [place] | [address] [place] | (blood pressure) < | | | | [address] [place] | [address] [place], [place] | 140/80 (Primary Dx); | | | | [address] [place], [place] | [address] | Type 2 diabetes | | | | [address] | | mellitus with | | | | [phone] | | 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, without | | | | | | long-term current | | | | | | use of insulin | | | | | | ([facility]); Secondary | | | | | | hyperparathyroidism | | | | | | ([facility]); CKD (chronic | | | | | | kidney disease) | | | | | | stage 3, GFR 30-59 | | | | | | ml/min ([facility]); ATN | | | | | | (acute tubular | | | | | | necrosis) ([facility]) | +--------+ + + + + Social [...] | + + + | Male | 01/06/2020 7:19 PM PDT | + + + documented as of this encounter Plan of Treatment +--------+ + + + + | Date | Type | Specialty | Care Team | Description | +--------+ + + + + | 03/23/ | Preadmit | Pre-Admission | Anna Edouard, | | | 2019 | Visit | Testing | [address] | | | | | | [place] [address] | | | | | | [phone] | | | | | | | | +--------+ + + + + | 03/24/ | Hospital | | Anna Edouard, | Esophagitis | | 2020 | Encounter | | MD [address] | | | | | | [place] [address] | | | | | | [phone] | | | | | | | | +--------+ + + + + | 03/24/ | Surgery | | Anna Edouard, | EGD | | 2019 | | | MD [address] | | | | | | [place] [address] | | | | | | [phone] | | | | | | | | +--------+ + + + + | 03/31/ | Office | Orthopedic Surgery | Melquiades Baez | | | 2019 | Visit | | DO [address] | | | | | | [place] | | | | | | [place] [address] | | | | | | [phone] | | | | | | | | +--------+ + + + + | 04/21/ | Office | Nephrology | Isiah Jade MD | | | 2019 | Visit | | [address] [place] | | | | | | [facility] | | | | | | [address] | | | | | | | | +--------+ + + + + | 05/07/ | Office | Cardiology | Charlee Oswald | | | 2019 | Visit | | [address] | | | | | | [address] | | | | | | [place] [address] | | | | | | [phone] | | | | | | | | +--------+ + + + + + +------+--------+ + + | Name | Type | Priori | Associated Diagnoses | Order Schedule | | | | ty | | | + +------+--------+ + + | Basic Metabolic | Lab | Routin | Hypertension goal | Expected: | | Panel | | e | BP (blood pressure) | 02/07/2020, Expires: | | | | | < 140/80 Type 2 | 01/30/2021 | | | | | diabetes mellitus | | | | | | with 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, without | | | | | | long-term current | | | | | | use of insulin (HCC) | | | | | | Secondary | | | | | | hyperparathyroidism | | | | | | (HCC) CKD (chronic | | | | | | kidney disease) | | | | | | stage 3, GFR 30-59 | | | | | | ml/min (HCC) ATN | | | | | | (acute tubular | | | | | | necrosis) (HCC) | | + +------+--------+ + + | CBC with | Lab | Routin | Hypertension goal | Expected: | | Differential | | e | BP (blood pressure) | 04/01/2020, Expires: | | | | | < 140/80 Type 2 | 01/30/2021 | | | | | diabetes mellitus | | | | | | with 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, without | | | | | | long-term current | | | | | | use of insulin (HCC) | | | | | | Secondary | | | | | | hyperparathyroidism | | | | | | (HCC) CKD (chronic | | | | | | kidney disease) | | | | | | stage 3, GFR 30-59 | | | | | | ml/min (HCC) ATN | | | | | | (acute tubular | | | | | | necrosis) (HCC) | | + +------+--------+ + + | Renal Function Panel | Lab | Routin | Hypertension goal | Expected: | | | | e | BP (blood pressure) | 04/01/2020, Expires: | | | | | < 140/80 Type 2 | 01/30/2021 | | | | | diabetes mellitus | | | | | | with 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, without | | | | | | long-term current | | | | | | use of insulin (HCC) | | | | | | Secondary | | | | | | hyperparathyroidism | | | | | | (HCC) CKD (chronic | | | | | | kidney disease) | | | | | | stage 3, GFR 30-59 | | | | | | ml/min (HCC) ATN | | | | | | (acute tubular | | | | | | necrosis) (HCC) | | + +------+--------+ + + | Uric Acid | Lab | Routin | Hypertension goal | Expected: | | | | e | BP (blood pressure) | 04/01/2020, Expires: | | | | | < 140/80 Type 2 | 01/30/2021 | | | | | diabetes mellitus | | | | | | with 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, without | | | | | | long-term current | | | | | | use of insulin (HCC) | | | | | | Secondary | | | | | | hyperparathyroidism | | | | | | (HCC) CKD (chronic | | | | | | kidney disease) | | | | | | stage 3, GFR 30-59 | | | | | | ml/min (HCC) ATN | | | | | | (acute tubular | | | | | | necrosis) ([facility]) | | + +------+--------+ + + | Magnesium | Lab | Routin | Hypertension goal | Expected: | | | | e | BP (blood pressure) | 04/01/2020, Expires: | | | | | < 140/80 Type 2 | 01/30/2021 | | | | | diabetes mellitus | | | | | | with 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, without | | | | | | long-term current | | | | | | use of insulin (HCC) | | | | | | Secondary | | | | | | hyperparathyroidism | | | | | | (HCC) CKD (chronic | | | | | | kidney disease) | | | | | | stage 3, GFR 30-59 | | | | | | ml/min (HCC) ATN | | | | | | (acute tubular | | | | | | necrosis) (HCC) | | + +------+--------+ + + | Parathyroid Hormone, | Lab | Routin | Hypertension goal | Expected: | | Intact | | e | BP (blood pressure) | 04/01/2020, Expires: | | | | | < 140/80 Type 2 | 01/30/2021 | | | | | diabetes mellitus | | | | | | with 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, without | | | | | | long-term current | | | | | | use of insulin (HCC) | | | | | | Secondary | | | | | | hyperparathyroidism | | | | | | (HCC) CKD (chronic | | | | | | kidney disease) | | | | | | stage 3, GFR 30-59 | | | | | | ml/min ([facility]) ATN | | | | | | (acute tubular | | | | | | necrosis) ([facility]) | | + +------+--------+ + + | Protein/Creatinine | Lab | Routin | Hypertension goal | Expected: | | Ratio, Urine | | e | BP (blood pressure) | 04/01/2020, Expires: | | | | | < 140/80 Type 2 | 01/30/2021 | | | | | diabetes mellitus | | | | | | with 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, without | | | | | | long-term current | | | | | | use of insulin (HCC) | | | | | | Secondary | | | | | | hyperparathyroidism | | | | | | (HCC) CKD (chronic | | | | | | kidney disease) | | | | | | stage 3, GFR 30-59 | | | | | | ml/min ([facility]) ATN | | | | | | (acute tubular | | | | | | necrosis) ([facility]) | | + +------+--------+ + + documented as of this encounter Visit Diagnoses + + | Diagnosis | + + | Hypertension goal BP (blood pressure) < 140/80 - Primary Unspecified essential | | hypertension | + + | Type 2 diabetes mellitus with diabetic nephropathy, 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
--- OUTSIDE RECORDS SUMMARY | ~2020-03-21 | XMS | Encounter Summary ---
Demographics + + + | Address | [address] | | | [place] [address] | + + + | Home Phone | | + + + | Preferred Language | Unknown | + + + | Marital Status | | + + + | Confucianist Affiliation | 1001 | + + + [...] [place] | | | | | [address] | | + + + + + | Deanna Lawson | ECON | Unknown | | + + + + + Care Team Providers + +------+ + | Care Advice Line Rn Name | Role | Phone | + +------+ + | Barbara Gilman MD | PCP | | + +------+ + Reason for Visit + + + | Reason | Comments | + + + | Device Check | Ona pacemaker in office device check w/Jay | | (In-office) | | + + + Encounter Details +--------+ + + + + | Date | Type | Department | Care Team | Description | +--------+ + + + + | 05/07/ | Procedure | [facility] | Enoch Thompson, | Cardiac pacemaker in | | 2019 | visit | CARDIOLOGY [place] | MD [address] | situ (Primary Dx); | | | | [address] | [place], | Permanent atrial | | | | [place] | [place] [address] | fibrillation (HCC); | | | | [address] | [phone] | Chronic diastolic | | | | [phone] | | heart failure (HCC) | +--------+ + + + + Social History + +-------+ +--------+------+ | Tobacco Use | Types | Packs/Day | Years | Date | | | | | Used | | + +-------+ +--------+------+ | Former Smoker | | 0.75 | | | + +-------+ +--------+------+ + + + | Sex Assigned at | Date Recorded | | | | + + + | Male | | + + + documented as of this encounter Procedure Notes Thi Burch RN - 05/07/2019 11:30 AM PDTAssociated Order(s): DEVICE INTERROGATIONProced ure(s): DEVICE INTERROGATIONPre-Procedure Diagnose(s): Presence of cardiac pacemaker; Perman ent atrial fibrillation (HCC); Chronic diastolic heart failure (HCC)Device interrogation don e by Enoch Thompson Any events or changes listed in office note. See device data attached to scheduled encounter for additional details. franchise sales representative: Thi Burch RN Associated attestation - Enoch Thompson MD - 06/01/2019 1:40 PM PDTA generator change o ut was performed on February 04, 2019. Normal device function was seen today for this Ona Sc ientific single-chamber device. The pacing threshold was 0.6 V at 0.6 ms and 0.4 ms at 0.7 V. He was left at 2 V at 0.5 ms. There has been no arrhythmias. 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 currydocumented in this encounter Plan of Treatment +--------+ + + + + | Date | Type | Specialty | Care Team | Description | +--------+ + + + + | 03/23/ | Preadmit | Pre-Admission | Anna Edouard, | | 2019 | Visit | Testing | [address] | | | | | | [place] [address] | | | | | | [phone] | | | | | | | | +--------+ + + + + | 03/24/ | Hospital | | Shehzadi, Anna, | Esophagitis | | 2019 | Encounter | | MD [address] | | | | | | [place] [address] | | | | | | [phone] | | | | | | | | +--------+ + + + + | 03/24/ | Surgery | | Anna Edouard, | EGD | | 2019 | | | MD [address] | | | | | | [place] [address] | | | | | | [phone] | | | | | | | | +--------+ + + + + | 03/31/ | Office | Orthopedic Surgery | Melquiades Baez | | | 2019 | Visit | | DO [address] | | | | | | [place] | | | | | | [place] [address] | | | | | | [phone] | | | | | | | | +--------+ + + + + | 04/21/ | Office | Nephrology | Isiah Jade MD | | 2019 | Visit | | [address] [facility] | | | | | | [address] [place] | | | | | | [address] | | | | | | | | +--------+ + + + + | 05/07/ | Office | Cardiology | Charlee Oswald | | | 2019 | Visit | | [address] | | | | | | [address] | | | | | | [place] [address] | | | | | | [phone] | | | | | | | | +--------+ + + + + documented as of this encounter Procedures + +--------+ + + + | Procedure Name | Priori | Date/Time | Associated Diagnosis | Comments | | | ty | | | | + +--------+ + + + | DEVICE INTERROGATION | Routin | 05/07/2019 | Cardiac pacemaker | Results for this | | | e | 11:30 AM | in situ Permanent | procedure are in the | | | | PDT | atrial fibrillation | results section. | | | | | (HCC) Chronic | | | |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 | | | | | | failure (HCC) | | + +--------+ + + + documented in this encounter Results Device Interrogation (05/07/2019 11:30 AM PDT) + + + | Narrative | Performed At | + + + | Thi Burch, | [place] | | JIAN 05/29/2019 16:07Device interrogation done by Enoch Thompson Any | | | events or changes listed in office note. See device data attached to | | | scheduled encounter for additional details. franchise sales representative: Thi Burch RN | | | | | |See device data attached to scheduled encounter for additional | | |details. | | | | | |franchise sales representative: Thi Burch RN | | | | | | | | + + + + +---------+ + + | Performing | Address | City/State/Zipcode | Phone Number | | Organization | | | | + +---------+ + + | [facility] | | | | + +---------+ + + documented in this encounter Visit Diagnoses + + | Diagnosis | + + | Cardiac pacemaker in situ - Primary | + + | Permanent atrial fibrillation (HCC) Atrial fibrillation | + + | Chronic diastolic heart failure (HCC) Chronic diastolic heart failure | + + | Esophagitis - Primary Esophagitis, unspecified | + + | Esophagitis Esophagitis, unspecified | + + documented in this encounter"
--- OUTSIDE RECORDS SUMMARY | ~2020-03-21 | XMS | Encounter Summary ---
Demographics + + + | Address | [address] | | | [place] [address] | + + + | Home Phone | | + + + | Preferred Language | Unknown | + + + | Marital Status | | + + + | Samaritan Affiliation | 1001 | + + + | Race | Unknown | + + + | Ethnic Group | Unknown | + + + Author + + + | Author | [facility] | | | and [place] | + + + | Organization | [facility] | | | and [...] [place] | | | | | [address] | | + + + + + | Deanna Lawson | ECON | Unknown | | + + + + + Care Team Providers + +------+ + | Care Glue Maker Bone Name | Role | Phone | + +------+ + | Barbara Gilman MD | PCP | | + +------+ + Reason for Visit +--------+--------+ + | Reason | Onset | Comments | | | Date | | +--------+--------+ + | Other | 02/19/ | Lab Results | | | 2019 | | +--------+--------+ + Encounter Details +--------+ + + + + | Date | Type | Department | Care Team | Description | +--------+ + + + + | 02/19/ | Telephone | [facility] | Isiah Jade MD | Other (Lab Results ) | | 2019 | | NEPRHOLOGY [place] | [address] | | | | | [address] | [address] [place], [place] | | | | | [address] [place], [place] | [address] | | | | | [address] | | | | | | [phone] | | | +--------+ + + + [...] + + documented as of this encounter Miscellaneous Notes Telephone Encounter - Germania Ibarra Medical Assistant - 02/20/2020 3:11 PM PDTBMP pend ed to Dr. Jade. 3 :11 PM PDTTelephone Encounter - Germania Ibarra Medical Assistant - 02/20/2020 3:09 PM PD TInformed the patient he is to keep a weight log for 5 days and repeat a blood test on 0. The patient stated understanding and will go into the office on the . Electronically s igned by Kita Goode at 02/20/2020 3:11 PM PDTTelephone Encounter - Germania Ibarra Medical Assistant - 02/20/2020 3:07 PM PDTMost recent BMP reviewed by Dr. Jade. Per Dr. Jade, patient is to keep a weight log for 5 days and repeat a BMP on 02/24/20 . docu mented in this encounter Plan of Treatment +--------+ + + + + | Date | Type | Specialty | Care Team | Description | +--------+ + + + + | 03/23/ | Preadmit | Pre-Admission | Anna Edouard, | | | 2019 | Visit | Testing | [address] | | | | | | [place] [address] | | | | | | [phone] | | | | | | | | +--------+ + + + + | 03/24/ | Hospital | | Anna Edouard, | Esophagitis | | 2019 | Encounter | | MD [address] | | | | | | [place] [address] | | | | | | [phone] | | | | | | | | +--------+ + + + + | 03/24/ | Surgery | | Anna Edouard, | EGD | | 2019 | | | MD [address] | | | | | | [place] [address] | | | | | | [phone] | | | | | | | | +--------+ + + + + | 03/31/ | Office | Orthopedic Surgery | Melquiades Baez | | | 2019 | Visit | | DO [address] | | | | | | [place], | | | | | | [place] [address] | | | | | | [phone] | | | | | | | | +--------+ + + + + | 04/21/ | Office | Nephrology | Isiah Jade MD | | | 2019 | Visit | | [address] | | | | | | [address] [place] | | | | | | [address] | | | | | | | | +--------+ + + + + | 05/07/ | Office | Cardiology | Charlee Oswald | | | 2019 | Visit | | [address] | | | | | | [address] | | | | | | [place] [address] | | | | | | [phone] | | | | | | | | +--------+ + + + + documented as of this encounter Visit Diagnoses + + | Diagnosis | + + | Bilateral leg edema - Primary Edema | + + | Chronic kidney disease, stage IV (severe) (HCC) Chronic kidney disease, Stage IV | | (severe) | + + | Electrolyte imbalance risk Other specified conditions influencing health status | + + | Esophagitis - Primary Esophagitis, unspecified | + + | Esophagitis Esophagitis, unspecified | + + documented in this encounter"
--- OUTSIDE RECORDS SUMMARY | ~2020-03-21 | XMS | Encounter Summary ---
Demographics + + + | Address | [address] | | | [place] [address] | + + + | Home Phone [...] [place] | | | | | [address] | | + + + + + | Deanna Lawson | ECON | Unknown | | + + + + + Care Team Providers + +------+ + | Care Men'S Garment Fitter Name | Role | Phone | + +------+ + | Barbara Gilman MD | PCP | | + +------+ + Encounter Details +--------+ + + + + | Date | Type | Department | Care Team | Description | +--------+ + + + + | 01/25/ | Orders Only | [facility] | Enoch Thompson, | | | 2019 | | CARDIOLOGY [place] | [address] | | | | | [address] | [place], | | | | | [place], [place] | [place] [address] | | | | | [address] | [phone] | | | | | [phone] | | | +--------+ + + + [...] | | | | | [place] [address] | | | | | | [phone] | | | | | | | | +--------+ + + + + | 03/24/ | Hospital | | Anna Edouard, | Esophagitis | | 2020 | Encounter | | MD [address] | | | | | | [place] [address] | | | | | | [phone] | | | | | | | | +--------+ + + + + | 03/24/ | Surgery | | Anna Edouard | EGD | | 2019 | | | [address] | | | | | | [place] [address] | | | | | | [phone] | | | | | | | | +--------+ + + + + | 03/31/ | Office | Orthopedic Surgery | Melquiades Baez | | | 2019 | Visit | | [address] | | | | | | [place], | | | | | | [place] [address] | | | | | | [phone] | | | | | | | | +--------+ + + + + | 04/21/ | Office | Nephrology | Isiah Jade MD | | | 2019 | Visit | | [address] [facility] | | | | | | [address] [place] | | | | | | [address] | | | | | | | | +--------+ + + + + | 05/07/ | Office | Cardiology | Charlee Oswald | | | 2019 | Visit | | [address] | | | | | | [address] | | | | | | [place] [address] | | | | | | [phone] | | | | | | | | +--------+ + + + + documented as of this encounter Visit Diagnoses Not on filedocumented in this encounter Additional Health Concerns + + + + + | Infection | Onset Date | Last Indicated | Resolved Time | + + + + + | Rule out COVID-19 | 12/24/2019 | 12/24/2019 | 12/24/2019 2:10 PM | | | | | PDT | + + + + + documented as of this encounter"
--- OUTSIDE RECORDS SUMMARY | ~2020-03-21 | XMS | Encounter Summary ---
Demographics + + + | Address | [address] | | | [place] [address] | + + + | Home Phone | | + + + | Preferred Language | Unknown | + + + | Marital Status | | + + + | Samaritan Affiliation | 1001 | + + + | Race | Unknown | + + + | Ethnic Group | Unknown | + + + Author + + + | Author | [facility] | | | and [place] | + + + | Organization | [facility] | | [...] [place] | | | | | [address] | | + + + + + | Deanna Lawson | ECON | Unknown | | + + + + + Care Team Providers + +------+ + | Care Family Physician Name | Role | Phone | + +------+ + | Barbara Gilman MD | PCP | | + +------+ + Encounter Details +--------+ + + + + | Date | Type | Department | Care Team | Description | +--------+ + + + + | 01/02/ | Orders Only | [facility] | Isiah Jade MD | Hypertension goal BP | | 2020 | | NEPHROLOGY [place] | [address] [place] | (blood pressure) < | | | | [address] [place] | [address] [place], [place] | 140/80 (Primary Dx); | | | | [address] [place], [place] | [address] | Chronic kidney | | | | [address] | | disease, stage IV | | | | [phone] | | (severe) (HCC); ATN | | | | | | (acute tubular | | | | | | necrosis) (HCC) | +--------+ + + + + [...] | | | | | [place] [address] | | | | | | [phone] | | | | | | | | +--------+ + + + + | 03/24/ | Hospital | | Anna Edouard, | Esophagitis | | 2020 | Encounter | | [address] | | | | | | [place] [address] | | | | | | [phone] | | | | | | | | +--------+ + + + + | 03/24/ | Surgery | | Anna Edouard | EGD | | 2019 | | | [address] | | | | | | [place] [address] | | | | | | [phone] | | | | | | | | +--------+ + + + + | 03/31/ | Office | Orthopedic Surgery | Melquiades Baez | | | 2019 | Visit | | [address] | | | | | | [place], | | | | | | [place] [address] | | | | | | [phone] | | | | | | | | +--------+ + + + + | 04/21/ | Office | Nephrology | Isiah Jaed MD | | | 2019 | Visit | | [address] [facility] [place] | | | | | | [address] | | | | | | [address] | | | | | | | | +--------+ + + + + | 05/07/ | Office | Cardiology | Charlee Oswald | | | 2019 | Visit | | [address] | | | | | | [address] | | | | | | [place] [address] | | | | | | [phone] | | | | | | | [...] | e | BP (blood pressure) | 02/05/2020, Expires: | | | | | < 140/80 Chronic | 01/02/2021 | | | | | kidney disease, | | | | | | stage IV (severe) | | | | | | (HCC) ATN (acute | | | | | | tubular necrosis) | | | | | | (HCC) | | + +------+--------+ + + | Protein/Creatinine | Lab | Routin | Hypertension goal | Expected: | | Ratio, Urine | | e | BP (blood pressure) | 02/05/2020, Expires: | | | | | < 140/80 Chronic | 01/02/2021 | | | | | kidney disease, | | | | | | stage IV (severe) | | | | | | (HCC) ATN (acute | | | | | | tubular necrosis) | | | | | | (HCC) | | + +------+--------+ + + | Uric Acid | Lab | Routin | Hypertension goal | Expected: | | | | e | BP (blood pressure) | 02/05/2020, Expires: | | | | | < 140/80 Chronic | 01/02/2021 | | | | | kidney disease, | | | | | | stage IV (severe) | | | | | | (HCC) ATN (acute | | | | | | tubular necrosis) | | | | | | (HCC) | | + +------+--------+ + + | Urinalysis With | Lab | Routin | Hypertension goal | Expected: | | Microscopic | | e | BP (blood pressure) | 02/05/2020, Expires: | | | | | < 140/80 Chronic | 01/02/2021 | | | | | kidney disease, | | | | | | stage IV (severe) | | | | | | (HCC) ATN (acute | | | | | | tubular necrosis) | | | | | | (HCC) | | + +------+--------+ + + | CBC with | Lab | Routin | Hypertension goal | Expected: | | Differential | | e | BP (blood pressure) | 02/05/2020, Expires: | | | | | < 140/80 Chronic | 01/02/2021 | | | | | kidney disease, | | | | | | stage IV (severe) | | | | | | (HCC) ATN (acute | | | | | | tubular necrosis) | | | | | | (HCC) | | + +------+--------+ + + documented as of this encounter Visit Diagnoses + + | Diagnosis | + + | Hypertension goal BP (blood pressure) < 140/80 - Primary Unspecified essential | | hypertension | + + | Chronic kidney disease, stage IV (severe) ([facility]) Chronic kidney disease, Stage IV | | (severe) | + + | ATN (acute tubular necrosis) ([facility]) Acute kidney failure with lesion of tubular | | necrosis | + + | Esophagitis - Primary Esophagitis, unspecified | + + | Esophagitis Esophagitis, unspecified | + + documented in this encounter"
--- OUTSIDE RECORDS SUMMARY | ~2020-03-21 | XMS | Encounter Summary ---
Demographics + + + | Address | [address] | | | [place] [address] | + + + | Home Phone [...] [address] | | | | | [place] | | | | | [address] | | + + + + + | Deanna Lawson | ECON | Unknown | | + + + + + Care Team Providers + +------+ + | Care Telemarketer Name | Role | Phone | + +------+ + | Barbara Gilman MD | PCP | | + +------+ + Encounter Details +--------+ + + + + | Date | Type | Department | Care Team | Description | +--------+ + + + + | 02/17/ | Hospital | [facility] | Melquaides Baez | Right hip pain | | 2019 | Encounter | CELESTE XRAY 1351 | [address] | | | | | [address] | [address] [place], | | | | | [place], [place] | [place] [address] | | | | | [address] | [phone] | | | | | [phone] | | | +--------+ + + + [...] + + | albuterol 90 | Inhale 2 puffs into | 1 | 0 | 02/06/20 | | | mcg/puff inhaler | the lungs every 6 | Inhaler | | 20 | | | | hours as needed for | | | | | | | Wheezing or | | | | | | | Shortness of Breath | | | | | + + + +---------+ + + | allopurinol | Take 1 tablet by | 90 | 3 | 01/12/20 | | | (ZYLOPRIM) 100 mg | mouth daily. | tablet | | 19 | | | tablet | | | | | | + + + +---------+ + + | apixaban (ELIQUIS) | Take 2.5 mg by mouth | | 0 | | | | 2.5 mg tablet | 2 times daily | | | | | + + [...] puffs into | 1 | 0 | 02/06/20 | | | budesonide-formotero | the lungs 2 times | Inhaler | | 20 | | | l (SYMBICORT) | daily | | | | | | 160-4.5 mcg/puff | | | | | | | inhaler | | | | | | + + + +---------+ + + | carvedilol (COREG) | Take 25 mg by mouth | | 0 | | | | 25 mg tablet | 2 times daily (with | | | | | | | breakfast & dinner) | | | | | + + + +---------+ + + | docusate sodium | Take 50 mg by mouth | | 0 | | | | (COLACE) 50 MG | 2 times daily | | | | | | capsule | | | | | | + + + +---------+ + + | ferrous sulfate | Take 65 mg of iron | | 0 | 01/25/ | | | 325 mg tablet | by mouth every other | | | 18 | | | | day. | | | | | + + + +---------+ + + | magnesium | Take by mouth Daily | | 0 | | | | hydroxide (MILK OF | as needed for | | | | | | MAGNESIA) 400 mg/5 | Constipation | | | | | | mL suspension | | | | | | + [...] + + + +---------+ + + | melatonin 5 mg | Take by mouth | | 0 | | | | tablet | nightly as needed | | | | | | | for Insomnia | | | | | + + + +---------+ + + | metFORMIN | Take 500 mg by mouth | | 0 | | | | (GLUCOPHAGE-XR) 500 | 3 times daily | | | | | | mg 24 hr tablet | | | | | | + + + +---------+ + + | pantoprazole | Take 1 tablet by | 60 | 3 | 01/04/20 | | | (PROTONIX) 40 mg | mouth 2 times daily | tablet | | 20 | 0 | | tablet | (before meals) for | | | | | | | 90 days. | | | | | + + + +---------+ + + | polyethylene | Take 17 g by mouth | | 0 | | | | glycol (MIRALAX) 17 | Daily | | | | | | g packet | | | | | | + + + +---------+ + + | pravastatin | Take 40 mg by mouth | | 0 | 08/26/19 | | | (PRAVACHOL) 80 MG | nightly. | | | 16 | | | tablet | | | | | | + + + +---------+ + + | tamsulosin | Take 0.4 mg by mouth | | 0 | | | | (FLOMAX) 0.4 mg CAPS | daily (after | | | | | | | breakfast) | | | | | + + + +---------+ + + | terazosin (HYTRIN) | Take 10 mg by mouth | | 0 | 04/24/20 | | | 10 MG capsule | daily with dinner. | | | 14 | | + + + +---------+ + + | torsemide | Take 1 tablet (20 mg | 30 | 2 | 02/06/20 | | | (DEMADEX) 20 mg | total) by mouth 2 | tablet | | 20 | | | tablet | times daily | | | | | + + + +---------+ + + documented as of this encounter Plan of Treatment +--------+ + + + + | Date | Type | Specialty | Care Team | Description | +--------+ + + + + | 03/23/ | Preadmit | Pre-Admission | Anna Edouard, | | | 2019 | Visit | Testing | [address] | | | | | | [place] [address] | | | | | | [phone] | | | | | | | | +--------+ + + + + | 03/24/ | Hospital | | Anna Edouard, | Esophagitis | | 2019 | Encounter | | [address] | | | | | | [place] [address] | | | | | | [phone] | | | | | | | | +--------+ + + + + | 03/24/ | Surgery | | Anna Edouard, | EGD | | 2019 | | | [address] | | | | | | [place] [address] | | | | | | [phone] | | | | | | | | +--------+ + + + + | 03/31/ | Office | Orthopedic Surgery | Melquiades Baez | | | 2019 | Visit | | [address] | | | | | | [place] | | | | | | [place] [address] | | | | | | [phone] | | | | | | | | +--------+ + + + + | 04/21/ | Office | Nephrology | Isiah Jade MD | | | 2019 | Visit | | [address] | | | | | | [address] [place] | | | | | | [address] | | | | | | | | +--------+ + + + + | 05/07/ | Office | Cardiology | Charlee Oswald | | | 2019 | Visit | | [address] | | | | | | [address] | | | | | | [place] [address] | | | | | | [phone] | | | | | | | [...] + + documented in this encounter Results XR Hip Right 2-3 Views (02/18/2020 1:27 PM PDT) + + | Specimen | [...] created this | | | entry using [employer] Recognition software and [employer] | | | macros. The entry has been reviewed and there may still exist sound | | | alike word errors. | | | | | |Electronically signed by: Melquiades Baez DO 02/18/2020 1:54 PM PDT | | | | | | | | |Melquiades Baez DO has created this entry using [employer] | | |Recognition software and [employer] macros. The entry has been reviewed and [...] | + + | Right hip pain Pain in joint, pelvic region and thigh | + + | Esophagitis - Primary Esophagitis, unspecified | + + | Esophagitis Esophagitis, unspecified | + + documented in this encounter"
--- OUTSIDE RECORDS SUMMARY | ~2020-03-21 | XMS | Encounter Summary ---
Demographics + + + | Address | [address] | | | [place] [address] | + + + | Home Phone | | + + + | Preferred Language | Unknown | + + + | Marital Status | | + + + | Mandaen Affiliation | 1001 | + + + | Race | Unknown | + + + | Ethnic Group | Unknown | + + + Author + + + | Author | [facility] | | | and [place] | + + + | Organization | [facility] | | | and [...] [place] | | | | | [address] | | + + + + + | Deanna Lawson | ECON | Unknown | | + + + + + Care Team Providers + +------+ + | Care Rat Trapper Name | Role | Phone | + [...] | | Required | | atrial | 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 [address] | 19 | | | | | fibrillation | [place] | [place] | | | | | (HCC) | [address] | [address] | | | | | Moderate to | [place], [place] | [address] | | | | | severe | [address] | [place] | | | | | pulmonary | Phone: | [address] Phone: | | | | | hypertension | [phone] | [phone] | | | | | (HCC) Risk | Fax: | Fax: | | | | | factors for | [phone] | [phone] | | | | | obstructive | [...] + + | 10/27/ | Office | [facility] | Charlee Oswald | 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 Dorsey at [facility] sleep [facility] , call [phone] for an appoi ntment next week I will have you establish care with Dr. Sanchez who will be your part time See me back in 4 weeks documented [...] reported by him as being negative His PDT4VF5- VASC score is 6( HTN, age, stroke, [...] recreational or illicit drug use. Exercises with Oppten and yard work, tolerates without chest pain [...] : 02/04/2019: ( Dr. Thompson) : new [employer] Accolade MRI com patible model L310, serial #[id number] pacemaker. The current lead is a [employer] model 4136, serial #[id number].Mode for pacing, VVIR with dual-sensor technology programmed on. T he lower rate will be 60 and upper rate 120beats per minute. The output will be 2 volts at 0.4 milliseconds with sensitivity of 2.5 millivolts. Pacing and sensing will be bipolar Previous Implant Pacemaker/ICD: 07/30/2010, BS Altrua S601, SN: [id number]. [facility]. Addendum: Last [...] function was seen today for th is [employer] single-chamber device. The pacing threshold was [...] 15 mmHg. Normal pulmonic valve with mild [place]. Sinus of Valsalva dilated about 4.26 cm, [...] change, except less pulmonar y hypertension Echo:07/26/2017: [facility]: EF >70 percent. [...] PHS 75,TOTAL BILI 0.6,ALB 3.9 Labs: 02/18/2018: ([facility] CBC: WBC 6.2, RBC 3.46, hemoglobin [...] 73. Thyroid: TSH 3.55 Labs: 08/23/2018: ( [facility] ER): CBC: WBC 6.6, RBC 2.92, hemoglobin [...] stopped, as he has a very high MWG5JW9- VASC sco re of 6. For his [...] apnea evaluation with Dr. Dorsey at the [facility] sleep disorders clinic due to his [...] may contain inadvertent rec ognition errors. Maximilian MCOCNNELL [facility] Cardiology 10/28/2019 Adoyvette gregory in this encounter Plan of Treatment +--------+ + + + + | Date | Type | Specialty | Care Team | Description | +--------+ + + + + | 03/23/ | Preadmit | Pre-Admission | Anna Edouard, | | | 2019 | Visit | Testing | [address] | | | | | | [place] [address] | | | | | | [phone] | | | | | | | | +--------+ + + + + | 03/24/ | Hospital | | Anna Edouard, | Esophagitis | 2019 | Encounter | | [address] | | | | | | [place] [address] | | | | | | [phone] | | | | | | | | +--------+ + + + + | 03/24/ | Surgery | | Anna Edouard | EGD | | 2019 | | | [address] | | | | | | [place] [address] | | | | | | [phone] | | | | | | | | +--------+ + + + + | 03/31/ | Office | Orthopedic Surgery | Melquiades Baez | | | 2019 | Visit | | [address] | | | | | | [place], | | | | | | [place] [address] | | | | | | [phone] | | | | | | | | +--------+ + + + + | 04/21/ | Office | Nephrology | Isiah Jade MD | | | 2019 | Visit | | [address] [facility] | | | | | | [address] | | | | | | [address] | | | | | | | | +--------+ + + + + | 05/07/ | Office | Cardiology | Charlee Oswald | | | 2019 | Visit | | [address] | | | | | | [address] | | | | | | [place] [address] | | | | | | [phone] | | | | | | | [...] for obstructive sleep apnea | + + | Esophagitis - Primary Esophagitis, unspecified | + + | Esophagitis Esophagitis, unspecified | + + documented in this encounter
--- OUTSIDE RECORDS SUMMARY | ~2020-03-21 | XMS | Encounter Summary ---
Demographics + + + | Address | [address] | | | [place] [address] | + + + | Home Phone | | + + + | Preferred Language | Unknown | + + + | Marital Status | | + + + | Caodaism Affiliation | 1001 | + + + | Race | Unknown | + + + | Ethnic Group | Unknown | + + + Author + + + | Author | [facility] | | | and [place] | + + + | Organization | [facility] | | | [...] [place] | | | | | [address] | | + + + + + | Deanna Lawson | ECON | Unknown | | + + + + + Care Team Providers + +------+ + | Care Community Services Coordinator Name | Role | Phone | + +------+ + | Barbara Gilman MD | PCP | | + +------+ + Encounter Details +--------+ + + + + | Date | Type | Department | Care Team | Description | +--------+ + + + + | 06/25/ | Orders Only | [facility] | Charlee Oswald | | | 2018 | | CARDIOLOGY ALYX | [address] | | | | | [address] | [address] | | | | | [address] | [place] [address] | | | | | [place] | [phone] | | | | | [address] | | | | | | [phone] | | | +--------+ + + + [...] [address] | | | | | | [place] [address] | | | | | | [phone] | | | | | | | | +--------+ + + + + | 03/24/ | Hospital | | Anna Edouard, | Esophagitis | | 2019 | Encounter | | [address] | | | | | | [place] [address] | | | | | | [phone] | | | | | | | | +--------+ + + + + | 03/24/ | Surgery | | Anna Edouard, | [address] | | 2019 | | | [address] | | | | | | [place] [address] | | | | | | [phone] | | | | | | | | +--------+ + + + + | 03/31/ | Office | Orthopedic Surgery | Melquiades Baez | | | 2019 | Visit | | [address] | | | | | | [place], | | | | | | [place] [address] | | | | | | [phone] | | | | | | | | +--------+ + + + + | 04/21/ | Office | Nephrology | Isiah Jade MD | | | 2019 | Visit | | [address] [facility] | | | | | | [address] | | | | | | [address] | | | | | | | | +--------+ + + + + | 05/07/ | Office | Cardiology | Charlee Oswald | | | 2019 | Visit | | [address] | | | | | | [address] | | | | | | [place] [address] | | | | | | [phone] | | | | | | | [...]
--- OUTSIDE RECORDS SUMMARY | ~2020-03-21 | XMS | Encounter Summary ---
Demographics + + + | Address | [address] | | | [place] [address] | + + + | Home Phone | | + + + | Preferred Language | Unknown | + + + | Marital Status | | + + + | Yazdanism Affiliation | 1001 | + + + | Race | Unknown | + + + | Ethnic Group | Unknown | + + + Author + + + | Author | [facility] | | | and [place] | + + + | Organization | [facility] | | | [...] [place] | | | | | [address] | | + + + + + | Deanna Lawson | ECON | Unknown | | + + + + + Care Team Providers + +------+ + | Care Department Of Natural Resources Officer Name | Role | Phone | + +------+ + PCP | Unavailable | + +------+ + Encounter Details +--------+ + + + + | Date | Type | Department | Care Team | Description | +--------+ + + + + | 08/29/ | Orders Only | [facility] | Conversion | | | 2018 | | CARDIOLOGY [place] | Transaction, | | | | | [address] | Provider Unknown | | | | | [place], [place] | [phone] | | | | | [address] | | | | | | [phone] | | | +--------+ + + + [...] | | | | | [place] [address] | | | | | | [phone] | | | | | | | | +--------+ + + + + | 03/24/ | Hospital | | Anna Edouard, | Esophagitis | | 2020 | Encounter | | [address] | | | | | | [place] [address] | | | | | | [phone] | | | | | | | | +--------+ + + + + | 03/24/ | Surgery | | Anna Edouard | EGD | | 2019 | | | [address] | | | | | | [place] [address] | | | | | | [phone] | | | | | | | | +--------+ + + + + | 03/31/ | Office | Orthopedic Surgery | Melquiades Baez | | | 2019 | Visit | | [address] | | | | | | [place], | | | | | | [place] [address] | | | | | | [phone] | | | | | | | | +--------+ + + + + | 04/21/ | Office | Nephrology | Isiah Jade MD | | | 2019 | Visit | | [address] [facility] | | | | | | [address] | | | | | | [address] | | | | | | | | +--------+ + + + + | 05/07/ | Office | Cardiology | Darek Charlee | | | 2019 | Visit | | [address] | | | | | | [address] | | | | | | [place] [address] | | | | | | [phone] | | | | | | | [...]
--- OUTSIDE RECORDS SUMMARY | ~2020-03-21 | XMS | Encounter Summary ---
Demographics + + + | Address | [address] | | | [place] [address] | + + + | Home Phone [...] [place] | | | | | [address] | | + + + + + | Deanna Lawson | ECON | Unknown | | + + + + + Care Team Providers + +------+ + | Care Italian Teacher Name | Role | Phone | + +------+ + | Barbara Gilman MD | PCP | | + +------+ + Encounter Details +--------+ + + + + | Date | Type | Department | Care Team | Description | +--------+ + + + + | 10/25/ | Orders Only | [facility] | Charlee Oswald | | | 2019 | | CARDIOLOGY [facility] | [address] | | | | | [address] | [address] | | | | | [address] | [place] [address] | | | | | [place] | [phone] | | | | | [address] | | | | | | [phone] | | | +--------+ + + + [...] [address] | | | | | | [place] [address] | | | | | | [phone] | | | | | | | | +--------+ + + + + | 03/24/ | Hospital | | Anna Edouard, | Esophagitis | | 2019 | Encounter | | MD [address] | | | | | | [place] [address] | | | | | | [phone] | | | | | | | | +--------+ + + + + | 03/24/ | Surgery | | Anna Edouard, | [address] | | 2019 | | | [address] | | | | | | [place] [address] | | | | | | [phone] | | | | | | | | +--------+ + + + + | 03/31/ | Office | Orthopedic Surgery | Melquiades Baez | | | 2019 | Visit | | DO [address] | | | | | | [place], | | | | | | [place] [address] | | | | | | [phone] | | | | | | | | +--------+ + + + + | 04/21/ | Office | Nephrology | Isiah Jade MD | | | 2019 | Visit | | [address] [facility] | | | | | | [address] [place] | | | | | | [address] | | | | | | | | +--------+ + + + + | 05/07/ | Office | Cardiology | Charlee Oswald | | | 2019 | Visit | | [address] | | | | | | [address] | | | | | | [place] [address] | | | | | | [phone] | | | | | | | [...]
--- OUTSIDE RECORDS SUMMARY | ~2020-03-21 | XMS | Encounter Summary ---
Demographics + + + | Address | [address] | | | [place] [address] | + + + | Home Phone | | + + + | Preferred Language | Unknown | + + + | Marital Status | | + + + | Shinto Affiliation | 1001 | + + + | Race | Unknown | + + + | Ethnic Group | Unknown | + + + Author + + + | Author | [facility] | | | and [place] | + + + | Organization | [facility] | | [...] [place] | | | | | [address] | | + + + + + | Deanna Lawson | ECON | Unknown | | + + + + + Care Team Providers + +------+ + | Care Bank Secrecy Act Officer Name | Role | Phone | [...] | Chronic kidney | | | | [place], [place] | [phone] | disease, stage III | | | | [address] | | (moderate) ([facility]); | | | | [phone] | | Chronic diastolic | | | | | | heart failure ([facility]) | +--------+ + + + [...] Pre-Admission | Anna Edouard, | | | 2020 | Visit | Testing | MD [address] | | | | | | [place] [address] | | | | | | [phone] | | | | | | | | +--------+ + + + + | 03/24/ | Hospital | | Anna Edouard, | Esophagitis | | 2020 | Encounter | | MD [address] | | | | | | [place] [address] | | | | | | [phone] | | | | | | | | +--------+ + + + + | 03/24/ | Surgery | | Anan Edouard, | EGD | | 2019 | | | MD [address] | | | | | | [place] [address] | | | | | | [phone] | | | | | | | | +--------+ + + + + | 03/31/ | Office | Orthopedic Surgery | Melquiades Baez | | | 2019 | Visit | | DO [address] | | | | | | [place], | | | | | | [place] [address] | | | | | | [phone] | | | | | | | | +--------+ + + + + | 04/21/ | Office | Nephrology | Isiah Jade MD | | | 2019 | Visit | | [address] | | | | | | [address] [place] | | | | | | [address] | | | | | | | | +--------+ + + + + | 05/07/ | Office | Cardiology | Charlee Oswald | | | 2019 | Visit | | [address] | | | | | | [address] | | | | | | [place] [address] | | | | | | [phone] | | | | | | | [...] | | | | | | (moderate) ([facility]) | | + +------+--------+ + + | CBC with | Lab | Routin | Chronic diastolic | Expected: | | Differential | | e | heart failure ([facility]) | 12/27/2018, Expires: | | | | | Essential (primary) | 12/27/2019 | | | | | hypertension | | | | | | Chronic kidney | | | | | | disease, stage III | | | | | | (moderate) ([facility]) | | + +------+--------+ + + | Protein/Creatinine | Lab | Routin | Chronic diastolic | Expected: | | Ratio, Urine | | e | heart failure ([facility]) | 12/27/2018, Expires: | | | | | Essential (primary) | 12/27/2019 | | | | | hypertension | | | | | | Chronic kidney | | | | | | disease, stage III | | | | | | (moderate) ([facility]) | | + +------+--------+ + + | Urinalysis with | Lab | Routin | Chronic diastolic | Expected: | | Microscopic if | | e | heart failure ([facility]) | 12/27/2018, Expires: | | Indicated | | | Essential (primary) | 12/27/2019 | | | | | hypertension | | | | | | Chronic kidney | | | | | | disease, stage III | | | | | | (moderate) ([facility]) | | + +------+--------+ + + | Uric Acid | Lab | Routin | Chronic diastolic | Expected: | | | | e | heart failure ([facility]) | 12/27/2018, Expires: | | | | | Essential (primary) | 12/27/2019 | | | | | hypertension | | | | | | Chronic kidney | | | | | | disease, stage III | | | | | | (moderate) ([facility]) | | + +------+--------+ + + | Renal Function Panel | Lab | Routin | Chronic kidney | Expected: | | | | e | disease, stage III | 03/21/2019, Expires: | | | | | (moderate) ([facility]) | 08/19/2020 | + +------+--------+ + + | CBC with | Lab | Routin | Chronic kidney | Expected: | | Differential | | e | disease, stage III | 03/21/2019, Expires: | | | | | (moderate) ([facility]) | 08/19/2020 | + +------+--------+ + + | Magnesium | Lab | Routin | Chronic kidney | Expected: | | | | e | disease, stage III | 03/21/2019, Expires: | | | | | (moderate) ([facility]) | 08/19/2020 | + +------+--------+ + + | Uric Acid | Lab | Routin | Chronic kidney | Expected: | | | | e | disease, stage III | 03/21/2019, Expires: | | | | | (moderate) ([facility]) | 08/19/2020 | + +------+--------+ + + | Parathyroid Hormone, | Lab | Routin | Chronic kidney | Expected: | | Intact | | e | disease, stage III | 03/21/2019, Expires: | | | | | (moderate) ([facility]) | 08/19/2020 | + +------+--------+ [...]
--- OUTSIDE RECORDS SUMMARY | ~2020-03-21 | XMS | Encounter Summary ---
Demographics + + + | Address | [address] | | | [place] [address] | + + + | Home Phone | | + + + | Preferred Language | Unknown | + + + | Marital Status | | + + + | Zoroastrian Affiliation | 1001 | + + + | Race | Unknown | + + + | Ethnic Group | Unknown | + + + Author + + + | Author | [facility] | | | and [place] | + + + | Organization | [facility] | | | and [...] [place] | | | | | [address] | | + + + + + | Deanna Lawson | ECON | Unknown | | + + + + + Care Team Providers + +------+ + | Care Pad Assembler Name | Role | Phone | [...] + + | 01/07/ | Telephone | [facility] | Melquiades Baez | Other (POST OP APPT | | 2019 | | ORTHO SPORTS | DO [address] | ) | | | | MEDICINE [place]LE[place] | [facility] | | | | | [address] [facility] | [place] [address] | | | | | [place], [place] | [phone] | | | | | [address] | | | | | | [phone] | | | +--------+ + + + [...] Miscellaneous Notes Telephone Encounter - Gwen Lay, Weights And Measures Sealer - 01/08/2020 4:58 PM PDTCalled Idalia back and left a voicemail to give me a call back to discuss what Dr. Baez wants to to. Left office number. Electronically signed by Gwen Lay Weights And Measures Sealer at 4:58 PM PDTTelephone Encounter - Gwen Lay, Weights And Measures Sealer - 01/08/2020 4:39 PM PDTINCOMING CALL from [facility]relle Friedman at [facility]. She left voicemail in regards to patient [...] with a call back daniel santos at [phone]. Idalia ended the call documented in this encounter Plan of Treatment +--------+ + + + + | Date | Type | Specialty | Care Team | Description | +--------+ + + + + | 03/23/ | Preadmit | Pre-Admission | Anna Edouard, | | | 2019 | Visit | Testing | MD [address] | | | | | | [place] [address] | | | | | | [phone] | | | | | | | | +--------+ + + + + | 03/24/ | Hospital | | Anna Edouard, | Esophagitis | | 2019 | Encounter | | MD [address] | | | | | | [place] [address] | | | | | | [phone] | | | | | | | | +--------+ + + + + | 03/24/ | Surgery | | Anna Edouard, | [address] | | 2019 | | | [address] | | | | | | [place] [address] | | | | | | [phone] | | | | | | | | +--------+ + + + + | 03/31/ | Office | Orthopedic Surgery | Melquiades Baez | | | 2019 | Visit | | DO [address] | | | | | | [place], | | | | | | [place] [address] | | | | | | [phone] | | | | | | | | +--------+ + + + + | 04/21/ | Office | Nephrology | Isiah Jade MD | | | 2019 | Visit | | [address] [facility] | | | | | | [address] [place] | | | | | | [address] | | | | | | | | +--------+ + + + + | 05/07/ | Office | Cardiology | Charlee Oswald | | | 2020 | Visit | | [address] | | | | | | [address] | | | | | | [place] [address] | | | | | | [phone] | | | | | | | | +--------+ + + + + documented as of this encounter Visit Diagnoses Not on filedocumented in this encounter"
--- OUTSIDE RECORDS SUMMARY | ~2020-03-21 | XMS | Encounter Summary ---
Demographics + + + | Address | [address] | | | [place] [address] | + + + | Home Phone [...] [place] | | | | | [address] | | + + + + + | Deanna Lawson | ECON | Unknown | | + + + + + Care Team Providers + +------+ + | Care Dehydrator Tender Name | Role | Phone | + [...] | Telephone | [facility] | Titus Larson, | Procedure | | 2019 | | GASTROENTEROLOGY | Grain Elevator Superintendent | | | | | [address] | | | | | | [place], [place] | | | | | | [address] | | | | | | [phone] | | | +--------+ + + + [...] procedure. Patient's info has been sent to practice architect to arrange same day testing. Patient must [...] [address] | | | | | | [place] [address] | | | | | | [phone] | | | | | | | | +--------+ + + + + | 03/24/ | Hospital | | Anna Edouard, | Esophagitis | | 2019 | Encounter | | MD [address] | | | | | | [place] [address] | | | | | | [phone] | | | | | | | | +--------+ + + + + | 03/24/ | Surgery | | Anna Edouard | EGD | | 2019 | | | [address] | | | | | | [place] [address] | | | | | | [phone] | | | | | | | | +--------+ + + + + | 03/31/ | Office | Orthopedic Surgery | Melquiades Baez | | | 2019 | Visit | | DO [address] | | | | | | [place], | | | | | | [place] [address] | | | | | | [phone] | | | | | | | | +--------+ + + + + | 04/21/ | Office | Nephrology | Isiah Jade MD | | | 2019 | Visit | | [address] | | | | | | [address] [place] | | | | | | [address] | | | | | | | | +--------+ + + + + | 05/07/ | Office | Cardiology | Charlee Oswald | | | 2020 | Visit | | [address] | | | | | | [address] | | | | | | [place] [address] | | | | | | [phone] | | | | | | | | +--------+ + + + + documented as of this encounter Visit Diagnoses + + | Diagnosis | + + | Esophagitis - Primary Esophagitis, unspecified | + + | Esophagitis - Primary Esophagitis, unspecified | + + | Esophagitis Esophagitis, unspecified | + + documented in this encounter
--- OUTSIDE RECORDS SUMMARY | ~2020-03-21 | XMS | Encounter Summary ---
Demographics + + + | Address | [address] | | | [place] [address] | + + + | Home Phone [...] [place] | | | | | [address] | | + + + + + | Deanna Lawson | ECON | Unknown | | + + + + + Care Team Providers + +------+ + | Care Asphalt Paver Operator Name | Role | Phone | + +------+ + | Barbara Gilman MD | PCP | | + +------+ + Encounter Details +--------+ + + + + | Date | Type | Department | Care Team | Description | +--------+ + + + + | 08/08/ | Orders Only | [facility] | Charlee Oswald | | | 2017 | | CARDIOLOGY [place] | [address] | | | | | [address] | [address] [address] | | | | | [address] | [place] [address] | | | | | [place] | [phone] | | | | | [address] | | | | | | [phone] | | | +--------+ + + + [...] [address] | | | | | | [place] [address] | | | | | | [phone] | | | | | | | | +--------+ + + + + | 03/24/ | Hospital | | Anna Edouard, | Esophagitis | | 2019 | Encounter | | MD [address] | | | | | | [place] [address] | | | | | | [phone] | | | | | | | | +--------+ + + + + | 03/24/ | Surgery | | Anna Edouard, | [address]AN[address]NA | | 2019 | | | [address] | | | | | | [place] [address] | | | | | | [phone] | | | | | | | | +--------+ + + + + | 03/31/ | Office | Orthopedic Surgery | Melquiades Baez | | | 2019 | Visit | | DO [address] | | | | | | [place], | | | | | | [place] [address] | | | | | | [phone] | | | | | | | | +--------+ + + + + | 04/21/ | Office | Nephrology | Isiah Jade MD | | | 2019 | Visit | | [address] [facility] | | | | | | [address] [place] | | | | | | [address] | | | | | | | | +--------+ + + + + | 05/07/ | Office | Cardiology | Charlee Oswald | | | 2019 | Visit | | [address] | | | | | | [address] | | | | | | [place] [address] | | | | | | [phone] | | | | | | | [...]
--- OUTSIDE RECORDS SUMMARY | ~2020-03-21 | XMS | Encounter Summary ---
Demographics + + + | Address | [address] | | | [place] [address] | + + + | Home Phone | | + + + | Preferred Language | Unknown | + + + | Marital Status | | + + + | Judaism Affiliation | 1001 | + + + [...] [place] | | | | | [address] | | + + + + + | Deanna Lawson | ECON | Unknown | | + + + + + Care Team Providers + +------+ + | Care [employer] Senior Sergeant Name | Role | Phone | + [...] Provider Unknown | | | | | [place], [place] | | | | | | [address] | (Fax) | | | | | [phone] | | | +--------+ + + + [...] [address] | | | | | | [place] [address] | | | | | | [phone] | | | | | | | | +--------+ + + + + | 03/24/ | Hospital | | Anna Edouard, | Esophagitis | | 2019 | Encounter | | MD [address] | | | | | | [place] [address] | | | | | | [phone] | | | | | | | | +--------+ + + + + | 03/24/ | Surgery | | Anna Edouard | EGD | | 2019 | | | [address] | | | | | | [place] [address] | | | | | | [phone] | | | | | | | | +--------+ + + + + | 03/31/ | Office | Orthopedic Surgery | Melquiades Baez | | | 2019 | Visit | | DO [address] | | | | | | [place], | | | | | | [place] [address] | | | | | | [phone] | | | | | | | | +--------+ + + + + | 04/21/ | Office | Nephrology | Isiah Jade MD | | | 2019 | Visit | | [address] [facility] | | | | | | [address] [place] | | | | | | [address] | | | | | | | | +--------+ + + + + | 05/07/ | Office | Cardiology | Charlee Oswald | | | 2019 | Visit | | [address] | | | | | | [address] | | | | | | [place] [address] | | | | | | [phone] | | | | | | | [...]
--- OUTSIDE RECORDS SUMMARY | ~2020-03-21 | XMS | Encounter Summary ---
Demographics + + + | Address | [address] | | | [place] [address] | + + + | Home Phone [...] [place] | | | | | [address] | | + + + + + | Deanna Lawson | ECON | Unknown | | + + + + + Care Team Providers + +------+ + | Care Inspector Production Plastic Parts Name | Role | Phone | + +------+ + PCP | Unavailable | + +------+ + Encounter Details +--------+ + + + + | Date | Type | Department | Care Team | Description | +--------+ + + + + | 07/28/ | Hospital | [facility] | Robe Prasad | | | 2009 - | Encounter | [facility] | MD Brendan [address] | | | | | CARE FLOOR [address] | [address] [place] [address] | | | 07/31/ | | [address] | [place] [address] | | | 2009 | | [place], [place] | [phone] | | | | | [address] | | | | | | [phone] | | | +--------+ + + + [...] | | | | | [place] [address] | | | | | | [phone] | | | | | | | | +--------+ + + + + | 03/24/ | Hospital | | Anna Edouard, | Esophagitis | | 2019 | Encounter | | MD [address] | | | | | | [place] [address] | | | | | | [phone] | | | | | | | | +--------+ + + + + | 03/24/ | Surgery | | Anna Edouard | EGD | 2019 | | | [address] | | | | | | [place] [address] | | | | | | [phone] | | | | | | | | +--------+ + + + + | 03/31/ | Office | Orthopedic Surgery | Melquiades Baez | | | 2019 | Visit | | DO [address] | | | | | | [place], | | | | | | [place] [address] | | | | | | [phone] | | | | | | | | +--------+ + + + + | 04/21/ | Office | Nephrology | Isiah Jade MD | | | 2019 | Visit | | [address] [place] | | | | | | [address] [place] | | | | | | [address] | | | | | | | | +--------+ + + + + | 05/07/ | Office | Cardiology | Charlee Oswald | | | 2019 | Visit | | [address] | | | | | | [place] | | | | | | [facility] [place] [address] | | | | | | [phone] | | | | | | | [...] | | | The pacemaker is a [employer] Altrua 60, model S601. Serial | | | number is [id number]. The electrode is a [employer] Dextrus electrode model | | | number 4136, length 50 cm. Serial number is [id number]. PACING AND | | | SENSING PARAMETERS [...] DT: | | | 08/11/2010 07:18 A [facility]//[id number]/ Read by TODD HARDEN DO | | [...] anticoagulation therapy. He is admitted to the [facility]. His beta-gala has been discontinued as well [...] DATA | | The pacemaker is a [employer] Altrua 60, model S601. Serial | | number is [id number]. | | The electrode is a [employer] Dextrus electrode model number 4136, length | | 50 cm. Serial number is [id number]. | | | | PACING AND SENSING [...] | P | | A | | NIDA/arline/[id number]/ | | | | Read by | | TODD HARDEN DO 08/10/2010 09:46 P | | | | | + + documented in this encounter Visit Diagnoses Not on filedocumented in this encounter"
--- OUTSIDE RECORDS SUMMARY | ~2020-03-21 | XMS | Encounter Summary ---
Demographics + + + | Address | [address] | | | [place] [address] | + + + | Home Phone | | + + + | Preferred Language | Unknown | + + + | Marital Status | | + + + | Yarsani Affiliation | 1001 | + + + | Race | Unknown | + + + | Ethnic Group | Unknown | + + + Author + + + | Author | [facility] | | | and [place] | + + + | Organization | [facility] | | [...] [place] | | | | | [address] | | + + + + + | Deanna Lawson | ECON | Unknown | | + + + + + Care Team Providers + +------+ + | Care Press Worker Helper Name | Role | Phone | + +------+ + | Barbara Gilman MD | PCP | | + +------+ + Reason for Visit +---------+ + | Reason | Comments | +---------+ + | Results | interpath-02/04/2020 | +---------+ + Encounter Details +--------+ + + + + | Date | Type | Department | Care Team | Description | +--------+ + + + + | 02/12/ | Documentati | [facility] | Silva Paz, | Results | | 2019 | on | NEPRHOLOGY [place] | Cyber Security Engineer | (interpath-02/04/2020 | | | | [address] | | ) | | | | [address] [place], [place] | | | | | | [address] | | | | | | [phone] | | | +--------+ + + + [...] | | | | | [place] [address] | | | | | | [phone] | | | | | | | | +--------+ + + + + | 03/24/ | Hospital | | Anna Edouard, | Esophagitis | | 2019 | Encounter | | MD [address] | | | | | | [place] [address] | | | | | | [phone] | | | | | | | | +--------+ + + + + | 03/24/ | Surgery | | Anna Edouard, | GRUPOD | | 2019 | | | [address] | | | | | | [place] [address] | | | | | | [phone] | | | | | | | | +--------+ + + + + | 03/31/ | Office | Orthopedic Surgery | Melquiades Baez | | | 2019 | Visit | | DO [address] | | | | | | [place], | | | | | | [place] [address] | | | | | | [phone] | | | | | | | | +--------+ + + + + | 04/21/ | Office | Nephrology | Isiah Jade MD | | | 2019 | Visit | | [address] [facility] | | | | | | [address] [place] | | | | | | [address] | | | | | | | | +--------+ + + + + | 05/07/ | Office | Cardiology | Charlee Oswald | | | 2019 | Visit | | [address] | | | | | | [address] | | | | | | [place] [address] | | | | | | [phone] | | | | | | | [...] + + documented in this encounter Results Basic Metabolic Panel (02/04/2020) + + + + + + | [...] + + | Blood | + + documented in this encounter Visit Diagnoses Not on filedocumented in this encounter"
--- OUTSIDE RECORDS SUMMARY | ~2020-03-21 | XMS | Encounter Summary ---
Demographics + + + | Address | [address] | | | [place] [address] | + + + | Home Phone | | + + + | Preferred Language | Unknown | + + + | Marital Status | | + + + | Restorationist Affiliation | 1001 | + + + | Race | Unknown | + + + | Ethnic Group | Unknown | + + + Author + + + | Author | [facility] | | | and [place] | + + + | Organization | [facility] | | [...] [place] | | | | | [address] | | + + + + + | Deanna Lawson | ECON | Unknown | | + + + + + Care Team Providers + +------+ + | Care Dough Mixer Name | Role | Phone | [...] | | | mellitus | [address] | [facility], | | | | | with other | [place] | [place] | | | | | diabetic | [id number] | [address] | | | | | kidney | Phone: | Phone: | | | | | complication | [phone] | [phone] | | | | | (HCC) | Fax: | Fax: | | | | | Chronic | [phone] | [phone] | | | | | diastolic | [...] + + | 01/20/ | Office | [facility] | Melquiades Baez | Right hip pain | | 2020 | Visit | [facility] | [address] | (Primary Dx); | | | | MEDICINE [place] | [facility], | Orthopedic aftercare | | | | [address] [facility] | [place] [address] | | | | | [place], [place] | [phone] | | | | | [address] | | | | | | [phone] | | | +--------+---------+ + + + [...] Baez DO - 01/21/2020 1:40 PM PDT [facility] Orthopaedic and Sports Medicine Service: Orthopedic [...] Baez DO has created this entry using Perdoo Voice Recognition software and ClearSaleing macros. The entry has been reviewed and [...] [address] | | | | | | [place] [address] | | | | | | [phone] | | | | | | | | +--------+ + + + + | 03/24/ | Hospital | | Anna Edouard, | Esophagitis | | 2019 | Encounter | | MD [address] | | | | | | [place] [address] | | | | | | [phone] | | | | | | | | +--------+ + + + + | 03/24/ | Surgery | | Anna Edouard, | VANDANA | | 2019 | | | [address] | | | | | | [place] [address] | | | | | | [phone] | | | | | | | | +--------+ + + + + | 03/31/ | Office | Orthopedic Surgery | Melquiades Baez | | | 2019 | Visit | | DO [address] | | | | | | [place], | | | | | | [place] [address] | | | | | | [phone] | | | | | | | | +--------+ + + + + | 04/21/ | Office | Nephrology | Isiah Jade MD | | | 2019 | Visit | | [address] [facility] | | | | | | [address] [place] | | | | | | [address] | | | | | | | | +--------+ + + + + | 05/07/ | Office | Cardiology | Charlee Oswald | | | 2019 | Visit | | [address] | | | | | | [address] | | | | | | [place] [address] | | | | | | [phone] | | | | | | | [...] Baez DO has created this entry using [employer] | | | Recognition software and Vis[employer]. The entry has been reviewed | | | and there may still exist sound alike word errors. | | | | | |Electronically signed by: Melquiades Baez DO 01/24/2020 1:05 PM | | | | | | | | |Melquiades Baez DO has created this entry using [employer] [address] | | |Recognition software and Vis[employer]. The entry has been reviewed and | [...] Unspecified orthopedic aftercare | + + | Esophagitis - Primary Esophagitis, unspecified | + + | Esophagitis Esophagitis, unspecified | + + documented in this encounter
--- OUTSIDE RECORDS SUMMARY | ~2020-03-21 | XMS | Encounter Summary ---
Demographics + + + | Address | [address] | | | [place] [address] | + + + | Home Phone [...] [place] | | | | | [address] | | + + + + + | Deanna Lawson | ECON | Unknown | | + + + + + Care Team Providers + +------+ + | Care Supervisor Dried Yeast Name | Role | Phone | + +------+ + | Barbara Gilman MD | PCP | | + +------+ + Encounter Details +--------+ + + + + | Date | Type | Department | Care Team | Description | +--------+ + + + + | 01/11/ | Orders Only | [facility] | Tristan Rajput, | | | 2018 | | NEPHROLOGY [place] | [address] | | | | | [address] [facility] | [place] | | | | | [place] | [place] | | | | | [address] | [address] | | | | | [phone] | [phone] | | | | | | | [...] [address] | | | | | | [place] [address] | | | | | | [phone] | | | | | | | | +--------+ + + + + | 03/24/ | Hospital | | Anna Edouard, | Esophagitis | | 2019 | Encounter | | MD [address] | | | | | | [place] [address] | | | | | | [phone] | | | | | | | | +--------+ + + + + | 03/24/ | Surgery | | Anna Edouard | GRUPOD | | 2019 | | | MD [address] | | | | | | [place] [address] | | | | | | [phone] | | | | | | | | +--------+ + + + + | 03/31/ | Office | Orthopedic Surgery | Melquiades Baez | | | 2019 | Visit | | DO [address] | | | | | | [place], | | | | | | [place] [address] | | | | | | [phone] | | | | | | | | +--------+ + + + + | 04/21/ | Office | Nephrology | Isiah Jade MD | | 2019 | Visit | | [address] [facility] | | | | | | [address] [place], [place] | | | | | | [address] | | | | | | | | +--------+ + + + + | 05/07/ | Office | Cardiology | Darek Charlee | | | 2019 | Visit | | [address] | | | | | | [address] | | | | | | [place] [address] | | | | | | [phone] | | | | | | | [...]
--- OUTSIDE RECORDS SUMMARY | ~2020-03-21 | XMS | Encounter Summary ---
Demographics + + + | Address | [address] | | | [place] [address] | + + + | Home Phone [...] [place] | | | | | [address] | | + + + + + | Deanna Lawson | ECON | Unknown | | + + + + + Care Team Providers + +------+ + | Care Internal Sales Name | Role | Phone | + +------+ + | Barbara Gilman MD | PCP | | + +------+ + Encounter Details +--------+ + + + + | Date | Type | Department | Care Team | Description | +--------+ + + + + | 09/02/ | Orders Only | [facility] | Enoch Thompson, | | | 2019 | | CARDIOLOGY OPHELIA | [address] | | | | | [address] | [facility], | | | | | [place], [place] | [place] [address] | | | | | [address] | [phone] | | | | | [phone] | | | +--------+ + + + [...] | | | | | [place] [address] | | | | | | [phone] | | | | | | | | +--------+ + + + + | 03/24/ | Hospital | | Anna Edouard, | Esophagitis | | 2020 | Encounter | | MD [address] | | | | | | [place] [address] | | | | | | [phone] | | | | | | | | +--------+ + + + + | 03/24/ | Surgery | | Anna Edouard | EGD | | 2019 | | | [address] | | | | | | [place] [address] | | | | | | [phone] | | | | | | | | +--------+ + + + + | 03/31/ | Office | Orthopedic Surgery | Melquiades Baez | | | 2019 | Visit | | DO [address] | | | | | | [place], | | | | | | [place] [address] | | | | | | [phone] | | | | | | | | +--------+ + + + + | 04/21/ | Office | Nephrology | Isiah Jade MD | | | 2019 | Visit | | [address] [facility] | | | | | | [address] [place] | | | | | | [address] | | | | | | | | +--------+ + + + + | 05/07/ | Office | Cardiology | Charlee Oswald | | | 2019 | Visit | | [address] | | | | | | [address] | | | | | | [place] [address] | | | | | | [phone] | | | | | | | [...]
--- OUTSIDE RECORDS SUMMARY | ~2020-03-21 | XMS | Encounter Summary ---
Demographics + + + | Address | [address] | | | [place] [address] | + + + | Home Phone [...] [place] | | | | | [address] | | + + + + + | Deanna Lawson | ECON | Unknown | | + + + + + Care Team Providers + +------+ + | Care Staff Design Engineer Name | Role | Phone | [...] Provider Unknown | | | | | [place], [place] | [phone] | | | | | [address] | | | | | | [phone] | | | +--------+ + + + [...] [address] | | | | | | [place] [address] | | | | | | [phone] | | | | | | | | +--------+ + + + + | 03/24/ | Hospital | | Anna Edouard, | Esophagitis | | 2019 | Encounter | | MD [address] | | | | | | [place] [address] | | | | | | [phone] | | | | | | | | +--------+ + + + + | 03/24/ | Surgery | | Anna Edouard | EGD | | 2019 | | | [address] | | | | | | [place] [address] | | | | | | [phone] | | | | | | | | +--------+ + + + + | 03/31/ | Office | Orthopedic Surgery | Melquiades Baez | | | 2019 | Visit | | [address] | | | | | | [place], | | | | | | [place] [address] | | | | | | [phone] | | | | | | | | +--------+ + + + + | 04/21/ | Office | Nephrology | Isiah Jade MD | | | 2019 | Visit | | [address] [facility] | | | | | | [address] [place] | | | | | | [address] | | | | | | | | +--------+ + + + + | 05/07/ | Office | Cardiology | Charlee Oswald | | | 2019 | Visit | | [address] | | | | | | [address] | | | | | | [place] [address] | | | | | | [phone] | | | | | | | [...]
--- OUTSIDE RECORDS SUMMARY | ~2020-03-21 | XMS | Encounter Summary ---
Demographics + + + | Address | [address] | | | [place] [address] | + + + | Home Phone [...] [place] | | | | | [address] | | + + + + + | Deanna Lawson | ECON | Unknown | | + + + + + Care Team Providers + +------+ + | Care [employer] Teacher Name | Role | Phone | [...] + + | 12/20/ | Hospital | [facility] | Julián Messina MD | Acute GI bleeding | | 2020 - | Encounter | [facility] [address] | [address] | (Primary Dx); Closed | | | | [address] | [address] [place], [place] | comminuted | | 12/31/ | | [place], [place] | [address] | intertrochanteric | | 2020 | | [address] | | fracture of right | | | | [phone] | Regino Greene MD | femur with routine | | | | | [address] | healing; Chronic | | | | | [place] [address] | kidney disease, | | | | | 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 No immediate indication for SIGN MANUFACTURER. Patient was also seen by physical therapy and occupational therapy and was recommended for discharging to SNF. However patient will b e going to [facility] bed at this time. Patient also had [...] No CVA tenderness, no spinal tenderness Disposition: [facility] Condition: Fair No discharge procedures on file. [...] BUNCREARATIO 30 01/01/2020 PTH 72.57 (A) 04/01/2019 [id number] 25.2 (L) 12/27/2019 CALCIUM 8.6 01/01/2020 PHOS [...] been following up with ENEDINA mena in [place]. He has unrecovered acute kidney injury and a higher baseline creatinine. At this time there is no clinical uremia, refractory volume overload, refractory acidosis, refractory hyperkalemia and no urgent indication of starting SIGN MANUFACTURER. Neither is there an indication for diagnostic [...] Incentive spirometry. Transfuse Prn. No indication for SIGN MANUFACTURER for now. Await renal recovery. On discharge [...] was completed later after rounds. Dictation software, [email or web address].[email or web address], was used which may contain error for [...] but not limited to potential need for SIGN MANUFACTURER . This is a patient with multiple [...] is waiting downstairs. Deanna Doe RN, CMSRN, [facility] Inpatient Wound Ostomy Care [phone] 01/01/2020 11:46 AM Chai, Savana Irving RN [...] 10 days To summarize previous records: Andres Gumzán is a 89 y.o. man followed for [...] BUNCREARATIO 25 12/31/2019 PTH 72.57 (A) 04/01/2019 [id number] 25.2 (L) 12/27/2019 CALCIUM 8.5 12/31/2019 PHOS [...] been following up with ENEDINA mena in [place]. He has unrecovered acute kidney injury and a higher baseline creatinine. At this time there is no clinical uremia, refractory volume overload, refractory acidosis, refractory hyperkalemia and no urgent indication of starting SIGN MANUFACTURER. Neither is there an indication for diagnostic [...] Incentive spirometry. Transfuse Prn. No indication for SIGN MANUFACTURER for now. Await renal recovery. I discussed [...] was completed later after rounds. Dictation software, [email or web address].com, was used which may contain error for [...] but not limited to potential need for SIGN MANUFACTURER . This is a patient with multiple [...] injuries: see wound RN note for treatment. [facility] ed, continue wound care at swing bed, send with extra dressing supplies. *Metabolic bone disorder: elevated PTH and phosphorus. Treatment per personnel coordinator (see thei r note). Subjective No chest [...] who was admitted as a transfer from [facility] due t o a mechanical fall sustaining [...] finding placement and he was accepted by [facility] in [place], [place] for rehabilitation purposes. Hospital stay was [...] Medications Current Facilty-Administered PRN Medications Ordered in [facility] Medication Dose Route Frequency Provider Last Rate [...] but remains week, he is accepted at [facility] in [place] with discharge plans tomorrow for rehabilit ation [...] discharge plans to Swing Bed Program in [place] tomorrow. DVT prophylaxis with SCD's only due to risks of bleeding. Discharge plans tomorrow to [facility] in [place], [place] for rehabi litation. Called his daughter Ms. Huerta and left a message with updated information at phone number [phone]. Jerry Chino MD 12/30/2019 tHolden bui PA - 12/30/2019 12:35 PM PDTFormatting of this note might be different from the [facility] Service: Gastroenterology Consult Progress Note Hospital Day: LOS: 9 days SUBJECTIVE Patient Summary: This is an 89-year-old male with multiple medical problems and a his tory of hypertension, diabetes, CKD stage III who was transferred from [facility] t o a fall and [...] motor deficits. PSYCHIATRIC: Appropriate, affect appears normal [facility] Gastroenterology Patient Name: Andres Guzmán [...] physician, the nurse, the anesthesiologist and the certified medical technician assistant in the pre-procedure area in the procedure [...] successful. Thermal coagulation with Gold probe 7 Djiboutian x 5 pulses was successful with hemostasis. [...] 12/29/2019 8:36 AM Number of Addenda: 0 [facility] DATA Lab Results Component Value [...] ll with any questions. Florina Cantu PA-C [facility] Gastroenterology 12/30/2019 Associated attestation - Lamont Hernandez MD - 12/31/2019 2:17 PM [id number] male with GI bleeding due to duodenal ulcer with visible vessel. The ulcer and visible vessel were tr eated with injection and gold probe thermal coagulation. The patient was seen and examined by me personally. The case was discussed with the physician's loan assistant and I agree with the assessment [...] status. Disposition: Plan to discharge tomorrow[facility], once medically stable and cleared by [...] BUNCREARATIO 23 12/30/2019 PTH 72.57 (A) 04/01/2019 [id number] 25.2 (L) 12/27/2019 CALCIUM 8.6 12/30/2019 PHOS [...] been following up with ENEDINA mena in [place]. That had improved with nonoliguric state but now seems to have leveled off at around 3 and this may be reflection of unrecovered acute kidney injury and a higher baseline creatinine. At this time there is no clinical uremia, refractory volume overload, refractory acidosis, refractory hyperkalemia and no urgent indication of starting SIGN MANUFACTURER. Neither is there an indication for diagnostic [...] Incentive spirometry. Transfuse Prn. No indication for SIGN MANUFACTURER for now. Await renal recovery. I discussed [...] was completed later after rounds. Dictation software, [email or web address].[email or web address], was used which may contain error for [...] but not limited to potential need for SIGN MANUFACTURER . This is a patient with multiple [...] BUNCREARATIO 30 12/29/2019 PTH 72.57 (A) 04/01/2019 [id number] 25.2 (L) 12/27/2019 CALCIUM 8.7 12/29/2019 PHOS [...] been following up with ENEDINA mena in [place]. That seems to be improving with nonoliguric state and small reduction in creatinine. At this time there is no clinical uremia, refractory volume overload, refractory acidosis, refractory hyperkalemia and no urgent indication of starting SIGN MANUFACTURER. Neither is there an indication for diagnostic [...] Incentive spirometry. Transfuse Prn. No indication for SIGN MANUFACTURER for now. Await renal recovery. I discussed with him the concept of acute on chronic renal failure and interaction of BP/vo lume status/medications in preserving homeostasis with ESRD. He should be on a 2 gm Na diet. Please dose all medications for an eGFR of less than 10 ml/min/1.73 m2. NSAIDS/MADDNE 2 inhibitors should be avoided. Aluminum/magnesium containing [...] was completed later after rounds. Dictation software, [email or web address], was used which may contain error for [...] but not limited to potential need for SIGN MANUFACTURER . acetaminophen 1,000 mg Oral 3 times [...] who was admitted as a transfer from [facility] due t o a mechanical fall sustaining [...] finding placement and he was accepted by [facility]ing bed [facility] in [place], [place] for rehabilitation purposes. Hospita l stay [...] but needs rehabilitation, he is accepted by [facility] in [place], [place] with discharge plans early next weeks [...] another 1 to 2 to SNF in [place], [place] if remains stable and improve d. Called his daughter Ms. Huerta and updated her about plans at phone number [phone]. Jerry Chino MD 12/29/2019 acon, Norma Kilpatrick [...] BUNCREARATIO 28 12/28/2019 PTH 72.57 (A) 04/01/2019 [id number] 25.2 (L) 12/27/2019 CALCIUM 8.5 12/28/2019 PHOS [...] been following up with ENEDINA mena in [place]. That seems to be improving with nonoliguric state and small reduction in creatinine. At this time there is no clinical uremia, refractory volume overload, refractory acidosis, refractory hyperkalemia and no urgent indication of starting SIGN MANUFACTURER. Neither is there an indication for diagnostic [...] Incentive spirometry. Transfuse Prn. No indication for SIGN MANUFACTURER for now. Await renal recovery. I discussed [...] was completed later after rounds. Dictation software, [email or web address].com, was used which may contain error for [...] but not limited to potential need for SIGN MANUFACTURER . acetaminophen 1,000 mg Oral 3 times [...] dinner dextrose 10% pantoprazole 8 mg/hr (12/28/19 3340) orter, DALILA Grant - 12/28/2019 10:49 AM PDT [facility] Service: Orthopedic Surgery Progress Note [...] DALILA Peralta has created this entry using [employer]ognition [employer] e and [employer] macros. The entry has been reviewed and [...] who was admitted as a transfer from [facility] due t o a mechanical fall sustaining [...] finding placement and he was accepted by [facility]ing bed [facility] in [place], [place] for rehabilitation purposes. Hospita l stay [...] making slow progress, he is accepted by [facility] in [place], [place] with discharge plans possib ly early [...] 1 to 2 to a SNF in [place], [place] when renal functions are st able and cleared by Nephrology services. Also called his daughter Ms. Huerta and updated her a bout plans at phone number [phone]. Jerry Chino MD 12/28/2019 Ghazal Ferrer COTA [...] been following up with ENEDINA mena in [place]. That seems to be improving with nonoliguric state and small reduction in creatinine. At this time there is no clinical uremia, refractory volume overload, refractory acidosis, refractory hyperkalemia and no urgent indication of starting SIGN MANUFACTURER. Neither is there an indication for diagnostic [...] Incentive spirometry. Transfuse Prn. No indication for SIGN MANUFACTURER for now. Await renal recovery. I discussed [...] but not limited to potential need for SIGN MANUFACTURER . acetaminophen 1,000 mg Oral 3 times [...] status. Disposition: Plan to discharge Monday, to [facility], once medically stable a nd cleared [...] Net -400 ml . Treatment plan: per personnel coordinator; slowly improving. *Blood pressure: labile; See VS [...] disorder: elevated PTH and phosphorus. Treatment per personnel coordinator (see thei r note). Subjective No chest [...] signed by: ENEDINA Ramos, 12/27/2019 11:03 AM eJrry Alcantar MD - 0 8:01 AM PDT Service: Hospitalist Daily Progress Note Andres Guzmán 89 y.o. : 1930 SEX: male PCP: Barbara Gilman MD Hospital Day: LOS: 6 SUBJECTIVE Patient Summary: Patient is an 89-year-old male with past medical history of HTN, DM Type 2, CKD Stage III w ith baseline creatinine 1.7 who was admitted as a transfer from [facility] due t o a mechanical fall sustaining [...] trength and mobility. He is accepted by [facility] in [place], [place] and discharge is delayed due to [...] to 3 days to a SNF in [place], [place] when renal functions a re stable and cleared by Nephrology services. Jerry Chino MD 12/27/2019 Linda Montalvo RN - 12/26/2019 5:09 PM PDT [facility] Service: Wound Care Consult Note [...] questions. Linda Cedeno RN 17:16 [place] [facility] - 12/26/2019 12:55 PM PDTFormatting of this [...] who was admitted as a transfer from [facility] due t o a mechanical fall sustaining [...] Medications Current Facilty-Administered PRN Medications Ordered in [facility] Medication Dose Route Frequency Provider Last Rate [...] LVOT peak VTI 15.13 cm AV peak noami 129.87 cm/s AV VTI 22.48 cm AV [...] placement is recommended. 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 Huerta and the at phone number [phone] Code Status: Full Code Regino Greene MD [...] status. Disposition: Plan to discharge Monday, to [facility], once medically stable a nd cleared [...] lab follow-up and treatment per hospitalist and personnel coordinator. *Blood pressure: hypotensive; See VS for BP trending. 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 Current Weight: 63.5 kg (140 lb) Admit [...] Dr. Huerta and the at phone number [phone] Code Status: Full Code Regino Greene MD [...] any conversation with family members today. Inpatient investment consultant. Code Status: Full Code Regino Greene MD 12/23/2019 10:03 PM [place] [facility] - 12/23/2019 12:27 PM PDT . ORTHOPEDIC [...] GAMMA NAIL; Surgeon: Melquiades Baez DO; Location: [facility] MAIN OR OTHER SURGICAL HISTORY CATARACT EXTRACTION [...] Electronically Signed by: Lamont Hernandez MD 12/29/2019 [facility] Portions of this chart may have been created with [email or web address] voice recognition software. Occasi onal wrong-word or sound-alike substitutions may have occurred due to the inherent castañeda itations of voice recognition software. Please read the chart carefully and recognize, using context, where these substitutions have occurred Julián Urbina MD - 12/21/2019 7:38 PM PDTFormatting of this note m ight be different from the original. [facility] Service: Hospitalist History and Physical Date of Admission: Dec 21 2019 Requesting Physician: [facility] emergency Department Reason for Admission: Right comminuted intertrochanteric fracture of the hip CHIEF COMPLAINT: Mechanical fall tripped over side curb landed on the right hip area right hip pain today HISTORY OF PRESENT ILLNESS The patient is a 89 y.o. male Transfer from [facility] after fall with right hip fracture with multiple comor bidities being on Eliquis as well requested for higher level of care to transfer to [facility] wit h orthopedic 89 years old gentleman fall at this morning mechanical fall tripped on the curb and result ed in right hip pain [facility] visited x-ray found to have a [...] and LFT Orthopedic on-call was consulted from [facility] and requested to transfer for higher level of care At [facility] with multiple comorbidities REVIEW OF SYSTEMS 12 [...] transfer lab WBC 5.9 hb10.2 hct 30.5 cvk169 potassium 5.1 Bun 85 cre 2.6 Co2-24 [...] as per stated reason Chronic A. fib YBO1PQ2- VASC score is 6- Hold Eliquis for [...] Old records reviewed on EMR. Dictation software, [email or web address].com, used which may contain error for similar sounding words even af ter review. Personal communication requested for any clarification. Disposition: inpatient Code Status: FULL CODE Primary Care Physician: MD Julián Nobles MD 12/21/2019 documented in thi s encounter Consult Notes Lamont Hernandez MD - 12/29/2019 10:26 AM PDT Gastroenterology Consultation: [facility] 12/29/2019 Andres Godinezdemetrioprem 89 y.o. [id number] History of present illness: Gastroenterology consultation is requested for evaluation of GI bleeding with melena. This is an 89-year-old male with multiple medical problems and a history of hypertension, d iabetes, CKD stage III who was transferred from [facility] due to a fall and [...] GAMMA NAIL; Surgeon: Melquiades Baez DO; Location: [facility] MAIN OR OTHER SURGICAL HISTORY CATARACT EXTRACTION [...] file Gets together: Not on file Attends caodaism service: Not on file Active member of [...] this chart may have been created with [email or web address].com voice recognition software. Occasi onal wrong-word or sound-alike substitutions may have occurred due to the inherent castañeda itations of voice recognition software. Please read the chart carefully and recognize, using context, where these substitutions have occurred Hayley Peres MD - 12/25/2019 8:46 PM PDT Consulted by [facility] Problem List: Patient Active Problem List Diagnosis [...] III with baseline creatinine 1.7 admitted to [facility] on December 20 after a mechanical fall that led to right hip fracture. The patient was transferr ed from [facility] for surgery. The patient did have ORIF [...] Tristan Gage at the nephrology clinic in [place]. The patien t is poor historian and does not recall seeing a personnel coordinator in the past. He also not awar [...] Order(s): IP CONSULT TO WOUND OSTOMY NURSE [facility] Service: Wound Care Consult Note [...] Elizabeth MD - 12/24/2019 11:33 AM PDT [facility] Service: Physicial Medicine & Rehab Consultation note [...] diabetes, and cirrhosis He was transferred to [facility], and is now s/p ORIF with Dr. [...] GAMMA NAIL; Surgeon: Melquiades Baez DO; Location: [facility] MAIN OR OTHER SURGICAL HISTORY CATARACT EXTRACTION [...] should consist SNF placement closer to home ([place]). Code Status: Full Code Wing Marie Reed MD 12/24/2019 Melquiades Gill, - 12/22/2019 7:50 AM PDTAssociated Order(s): PROVIDER TO PROVIDER CONSULT [facility] Orthopaedic and Sports Medicine Service: Orthopedic [...] hip f racture. He was transferred to [facility] for concerns with other comor bidities. He [...] surgery. He will be taken for a [facility] hip cephalo-medullary nail.The risks and benefits of [...] might b e different from the original. [facility] FACILITY TRANSFER ORDERS Patient Name: Andres Guzmán [...] limb(s)): [x] OT Evaluation & Treat [] DRILL OPERATOR PNEUMATIC Evaluation Treat Wound/Skin Care: [] Follow current recommendations of the wound team for treatment. [] Wound Vac management per nursing protocol. Labs/Imaging: [] PT/INR: Frequency per SNF provider Goal INR: [] Fingerstick glucose check before meals and bedtime and PRN [] Labs: Follow up: Melquiades Baez DO [address] [place] [address] [phone] In 2 weeks For post op care Barbara Gilman MD [address] [place] [address] DR Ledy Villafana [place] [phone] In 1 week I have advised this [...] Regino Greene MD, certify that post hospital fci care is medically necessa ry on a continuing basis for any of the conditions for which he/she received care during thi s hospitalization. Additional Orders/Instructions: Physician's signature: 01/01/2020 10:59 AM [facility] NURSING FACILITY USE ONLY: [] Admitting orders [...] HIGH Current Discharge Plan Anticipated Discharge Disposition: fci facility Expected DC Date: 12/31/2019 Barriers to Discharge: placement Steps Taken Toward Discharge: Attended morning rounds, called [facility] and provided upd ate of Pt Next Steps: d/c to [facility] Community Support Services Current Outpt/Agency/Support Groups: none Community Agency Name: none Other Resources: Discharge Transportation Transportation Needs: agency transportation Notes: Pt on course to discharge to [facility] tomorrow. Idalia discusse d with [facility] team and they are accepting Pt tomorrow if Pt is medically ready. Cm will follow for d/c needs that arise. Electronically signed: Ja Marcus RN 12/31/2019 3:54 PM lan of Care - Andrez Llamas, EIGHT SECTION BLOWER - 12/31/2019 2:04 PM PDT Physical Therapy Treatment Note Recommended discharge disposition: fci facility Post discharge physical therapy recommendation: Equipment [...] Value LTG Status continued at 12/30/2019804 LTG [place] Level supervised at 12/30/2019804 LTG Assistive Device none at 12/30/2019 08 All Transfers Goal Most Recent Value LTG Status new at 12/30/2019804 LTG [place] Level minimum assist (75% patient effort) at 12/30/2019804 LTG Assistive Device 2 wheeled walker (FWW) at 12/30/2019804 Gait Goal Most Recent Value LTG Status new at 12/30/2019804 LTG [place] Level minimum assist (75% patient effort) at [...] uses call light appropriately lan of [facility] - Torie Hamlin RN - 12/31/2019 3:02 [...] r sha complete. la n of [facility] - Torie Bryant RN - 12/30/2019 10:03 PM PDT Problem: Adult Inpatient Plan of Care Goal: Plan of Care Review Outcome: Ongoing, progressing Goal: Readiness for Transition of Care Outcome: Ongoing, progressing Plan of care reviewed with patient who verbalizes agreement with no voiced concerns. Aware of plan for discharge to [facility] tomorrow and has no concerns regarding [...] Physical Therapy Treatment Note Recommended discharge disposition: fci facility Post discharge physical therapy recommendation: Equipment [...] Bed Mobility Sit to Supine, Level of Def[place]: moderate assist (50% patient effort) Safety Issues: decreased use of legs for bridging/pushing Impairments: strength decreased Transfers Chair-Bed, Level of Def[place]: moderate assist (50% patient effort) Fiu-Fgirp-Lbx, Assistive Device: gait belt Sit-Stand, Level of [place]: moderate assist (50% patient effort) Stand-Sit, Level of Def[place]: moderate assist (50% patient effort) Ifb-Fbzlz-Wta, Assistive Device: gait belt Safety Issues: balance decreased during turns, step length decreased Impairments: strength decreased Goals Reflects last filed data and may be from multiple contributors. All Bed Mobility Goal Most Recent Value LTG Status continued at 12/30/2019 08 LTG Def[place] Level supervised at 12/30/2019 08 LTG Assistive Device none at 12/30/2019 08 All Transfers Goal Most Recent Value LTG Status new at 12/30/2019 08 LTG [place] Level minimum assist (75% patient effort) at 12/30/2019 0805 LTG Assistive Device 2 wheeled walker (FWW) at 12/30/2019 0805 Gait Goal Most Recent Value LTG Status new at 12/30/2019 0805 LTG [place] Level minimum assist (75% patient effort) at [...] Bed in low position, gait belt available, child nutrition manager socks on. Problem: Skin Injury Risk Increased [...] Physical Therapy Re-Assessment Note Recommended discharge disposition: fci facility Post discharge physical therapy recommendation: ongoing low intensity therapy, will benefi t from structured setting Equipment Recommendations: (TBD) Barriers to community-based discharge Physical Impairment, Pain, and Fall risk Planned Interventions: balance training, bed mobility training, gait training, home exercis e program, manual therapy techniques, patient/family education, ROM (Range of Motion), stair training, strengthening, stretching, italian ball techniques, wheelchair management/propulsio n training Recommended [...] Documentation: sit to/from stand Sit-Stand, Level of Defiance: moderate assist (50% patient effort) Stand-Sit, Level of Def[place]: moderate assist (50% patient effort) Eku-Uhxbu-Auc, Assistive Device: other (see comments)(platform walker ) Maintain Weight Bearing Status: able to maintain weight bearing status Safety Issues: balance decreased during turns Impairments: pain, strength decreased, impaired balance Gait Gait Comments: ambulated with shuffled steps and decreased quita Level of Defiance: moderate assist (50% patient effort) Assistive Device: [...] Value LTG Status continued at 12/30/2019804 LTG Def[place] Level supervised at 12/30/2019804 LTG Assistive Device none at 12/30/2019 08 All Transfers Goal Most Recent Value LTG Status new at 12/30/2019804 LTG [place] Level minimum assist (75% patient effort) at 12/30/2019804 LTG Assistive Device 2 wheeled walker (FWW) at 12/30/2019804 Gait Goal Most Recent Value LTG Status new at 12/30/2019804 LTG Def[place] Level minimum assist (75% patient effort) at [...] Physical Therapy Treatment Note Recommended discharge disposition: [facility] facility Post discharge physical therapy recommendation: Equipment [...] Bed Mobility Supine to Sit, Level of Defiance: moderate assist (50% patient effort) Sit to Supine, Level of Defiance: moderate assist (50% patient effort) Safety Issues: decreased use of legs for bridging/pushing Impairments: strength decreased Transfers Sit-Stand, Level of Defiance: moderate assist (50% patient effort) Stand-Sit, Level of Defiance: moderate assist (50% patient effort) Gyh-Mufld-Aqm, Assistive Device: other (see comments)(UP walker) Safety Issues: balance decreased during turns, step length decreased Impairments: strength decreased Gait Level of Defiance: moderate assist (50% patient effort) Assistive Device: [...] LTG Status new at 12/23/2019 1600 LTG Def[place] Level supervised at 12/23/2019 1600 LTG Assistive Device none at 12/23/2019 1600 All Transfers Goal Most Recent Value LTG Status new at 12/23/2019 1600 LTG Def[place] Level modified independent at 12/23/2019 1600 LTG Assistive Device 2 wheeled walker (FWW) at 12/23/2019 1600 Gait Goal Most Recent Value LTG Status new at 12/23/2019 1600 LTG Def[place] Level stand by assist at 12/23/2019 1600 [...] Bed Mobility Supine to Sit, Level of Defiance: moderate assist (50% patient effort) Safety Issues: decreased use of legs for bridging/pushing Impairments: strength decreased Transfers Sit-Stand, Level of Defiance: moderate assist (50% patient effort) Stand-Sit, Level of Defiance: moderate assist (50% patient effort) Uso-Dazhs-Phk, Assistive Device: other (see comments)(UP walker) Safety Issues: balance decreased during turns, step length decreased Impairments: strength decreased Exercises Bed exercises: ankle pumps, quad sets, heel slides, hip abduction/adduction, glut sets Goals Reflects last filed data and may be from multiple contributors. All Bed Mobility Goal Most Recent Value LTG Status new at 12/23/2019 1600 LTG Def[place] Level supervised at 12/23/2019 1600 LTG Assistive Device none at 12/23/2019 1600 All Transfers Goal Most Recent Value LTG Status new at 12/23/2019 1600 LTG Def[place] Level modified independent at 12/23/2019 1600 LTG Assistive Device 2 wheeled walker (FWW) at 12/23/2019 1600 Gait Goal Most Recent Value LTG Status new at 12/23/2019 1600 LTG [place] Level stand by assist at 12/23/2019 1600 [...] handled ghada e horn, long handled sponge, organization development consultant, sock aide Barriers to community-based discharge: Level [...] x1, rest break inbetween set d/t fatigue. IROQUOIS for proper tech during ex able to continue seq uence intitially however would require cueing/assist later on in reps. Goals Reflects last filed data and may be from multiple contributors. LB Dressing Goal Most Recent Value LTG Status new at 12/24/2019 0953 LTG Def[place] Level moderate assist (50% patient effort), verbal cues required at 12/23 0953 LTG Adaptive Equipment organization development consultant, shoe horn, long handled, sock-aid [AE as needed] at 2019 0953 Toilet Transfer Goal Most Recent Value LTG Status new at 12/24/2019 0953 LTG Def[place] Level minimum assist (75% patient effort), verbal [...] OTR/L. lan of Care - Andrez Dominguez, EIGHT SECTION BLOWER - 12/26/2019 1:46 PM PDTFormatting of this [...] Bed Mobility Supine to Sit, Level of Defiance: moderate assist (50% patient effort) Sit to Supine, Level of Defiance: moderate assist (50% patient effort) Safety Issues: decreased use of legs for bridging/pushing Impairments: strength decreased Transfers Sit-Stand, Level of Defiance: moderate assist (50% patient effort) Stand-Sit, Level of Defiance: moderate assist (50% patient effort) Gvv-Naels-Gfg, Assistive Device: other (see comments)(Up walker) Safety Issues: balance decreased during turns, step length decreased Impairments: strength decreased Gait Level of Defiance: moderate assist (50% patient effort) Assistive Device: [...] LTG Status new at 12/23/2019 1600 LTG Def[place] Level supervised at 12/23/2019 1600 LTG Assistive Device none at 12/23/2019 1600 All Transfers Goal Most Recent Value LTG Status new at 12/23/2019 1600 LTG [place] Level modified independent at 12/23/2019 1600 LTG Assistive Device 2 wheeled walker (FWW) at 12/23/2019 1600 Gait Goal Most Recent Value LTG Status new at 12/23/2019 1600 LTG [place] Level stand by assist at 12/23/2019 1600 [...] Bed Mobility Supine to Sit, Level of Def[place]: moderate assist (50% patient effort) Safety Issues: decreased use of legs for bridging/pushing Impairments: strength decreased Transfers Sit-Stand, Level of Defiance: moderate assist (50% patient effort) Stand-Sit, Level of Defiance: moderate assist (50% patient effort) Rii-Tkhpk-Gfu, Assistive Device: other (see comments)(Up walker) Safety Issues: balance decreased during turns, step length decreased Impairments: strength decreased Gait Level of Defiance: moderate assist (50% patient effort) Assistive Device: [...] LTG Status new at 12/23/2019 1600 LTG [place] Level supervised at 12/23/2019 1600 LTG Assistive Device none at 12/23/2019 1600 All Transfers Goal Most Recent Value LTG Status new at 12/23/2019 1600 LTG Def[place] Level modified independent at 12/23/2019 1600 LTG Assistive Device 2 wheeled walker (FWW) at 12/23/2019 1600 Gait Goal Most Recent Value LTG Status new at 12/23/2019 1600 LTG Def[place] Level stand by assist at 12/23/2019 1600 [...] HIGH Current Discharge Plan Anticipated Discharge Disposition: [facility] facility Expected DC Date: 12/30/2019 Barriers to Discharge: placement Steps Taken Toward Discharge: Attended morning rounds Next Steps: d/c to [facility] Community Support Services Current Outpt/Agency/Support Groups: none Community Agency Name: none Other Resources: Discharge Transportation Transportation Needs: agency transportation Notes: Pt not medically ready for discharge. Cm called Idalia NELSON at [facility] and updat ed her on Pt progress. Pt may be ready for d/c Monday. Cm will continue to follow for placem ent needs. Electronically signed: Ja Marcus RN 12/26/2019 11:46 AM lan of Audra Pickard, Nursing [facility] t - 12/26/2019 10:00 AM PDT [...] Bed Mobility Sit to Supine, Level of Defiance: maximal assist (25% patient effort), verbal cues requ ired Safety Issues: decreased use of legs for bridging/pushing, decreased use of arms for pushin g/pulling Impairments: strength decreased, pain, impaired balance Transfers Sit-Stand, Level of Def[place]: moderate assist (50% patient effort), verbal cues require d Stand-Sit, Level of Def[place]: moderate assist (50% patient effort), verbal cues require d Yis-Nrdjy-Uxl, Assistive Device: 2 wheeled walker (FWW), gait belt Safety Issues: sequencing ability decreased, balance decreased during turns Gait Level of Defiance: moderate assist (50% patient effort) Assistive Device: [...] LTG Status new at 12/23/2019 1600 LTG Def[place] Level supervised at 12/23/2019 1600 LTG Assistive Device none at 12/23/2019 1600 All Transfers Goal Most Recent Value LTG Status new at 12/23/2019 1600 LTG Def[place] Level modified independent at 12/23/2019 1600 LTG Assistive Device 2 wheeled walker (FWW) at 12/23/2019 1600 Gait Goal Most Recent Value LTG Status new at 12/23/2019 1600 LTG [place] Level stand by assist at 12/23/2019 1600 [...] HIGH Current Discharge Plan Anticipated Discharge Disposition: [facility] facility Expected DC Date: 12/27/2019 Barriers to Discharge: placement Steps Taken Toward Discharge: Attended rounds Next Steps: d/c to [facility] Community Support Services Current Outpt/Agency/Support Groups: none Community Agency Name: none Other Resources: Discharge Transportation Transportation Needs: agency transportation Notes: Pt not medically ready for discharge. Cm received call from [facility] from [facility]. Pt has been accepted but wants [...] (Range of Motion), stair training, strengthening, stretching, italian ball techniques, w heelchair management/propulsion training Recommended [...] HOB elevated Supine to Sit, Level of Defiance: moderate assist (50% patient effort), verbal cues req uired Safety Issues: decreased use of legs for bridging/pushing, decreased use of arms for pushin g/pulling Impairments: strength decreased, pain, impaired balance Transfers Additional Documentation: sit to/from stand Chair-Bed, Level of Defiance: moderate assist (50% patient effort), verbal cues require d Zft-Hdstg-Uah, Assistive Device: 2 wheeled walker (FWW) Sit-Stand, Level of Def[place]: moderate assist (50% patient effort), verbal cues require d Stand-Sit, Level of Def[place]: moderate assist (50% patient effort), verbal cues require d Ejd-Wzsba-Gbc, Assistive Device: 2 wheeled walker (FWW), gait belt Maintain Weight Bearing Status: able to maintain weight bearing status Safety Issues: sequencing ability decreased, balance decreased during turns Impairments: impaired balance, coordination impaired, pain, decreased flexibility Gait Gait Comments: 4 steps to chair Level of Defiance: moderate assist (50% patient effort) Assistive Device: [...] LTG Status new at 12/23/2019 1600 LTG Def[place] Level supervised at 12/23/2019 1600 LTG Assistive Device none at 12/23/2019 1600 All Transfers Goal Most Recent Value LTG Status new at 12/23/2019 1600 LTG Def[place] Level modified independent at 12/23/2019 1600 LTG Assistive Device 2 wheeled walker (FWW) at 12/23/2019 1600 Gait Goal Most Recent Value LTG Status new at 12/23/2019 1600 LTG Def[place] Level stand by assist at 12/23/2019 1600 [...] long handled shoe horn, long handled sponge, organization development consultant, sock aide(BSC (?)) Barriers to community-based discharge [...] seated in the recliner Grooming, Level of Defiance: supervised Assistive Device: none Grooming Assess/Train, Position: sitting Bed Mobility Additional Documentation: supine to/from sit Assistive Device: HOB elevated, bed rails Sit to Supine, Level of Defiance: maximal assist (25% patient effort), verbal cues [...] stand, bed to/from chair Chair-Bed, Level of Def[place]: moderate assist (50% patient effort), verbal cues require d Irz-Prxwl-Cnz, Assistive Device: gait belt Sit-Stand, Level of Def[place]: moderate assist (50% patient effort), verbal cues require d Stand-Sit, Level of Def[place]: moderate assist (50% patient effort), verbal cues require d Cbt-Thrwo-Emj, Assistive Device: 2 wheeled walker (FWW), gait [...] LTG Status new at 12/24/2019 0953 LTG Def[place] Level moderate assist (50% patient effort), verbal cues required at 12/23 0953 LTG Adaptive Equipment organization development consultant, shoe horn, long handled, sock-aid [AE as needed] at 2019 0953 Toilet Transfer Goal Most Recent Value LTG Status new at 12/24/2019 0953 LTG Def[place] Level minimum assist (75% patient effort), verbal [...] HOB elevated Supine to Sit, Level of Defiance: moderate assist (50% patient effort), verbal cues req uired Safety Issues: decreased use of arms for pushing/pulling, decreased use of legs for bridgin g/pushing Impairments: decreased flexibility, pain, impaired balance Transfers Additional Documentation: sit to/from stand Sit-Stand, Level of Defiance: minimal assist (75% patient effort) Stand-Sit, Level of Defiance: minimal assist (75% patient effort) Ewc-Hmltm-Rcr, Assistive Device: 2 wheeled walker (FWW) Maintain Weight Bearing Status: able to maintain weight bearing status Safety Issues: sequencing ability decreased Impairments: decreased flexibility, impaired balance, pain Gait Gait Comments: side stepping to recliner Level of Defiance: minimal assist (75% patient effort) Assistive Device: [...] LTG Status new at 12/23/2019 1600 LTG Def[place] Level supervised at 12/23/2019 1600 LTG Assistive Device none at 12/23/2019 1600 All Transfers Goal Most Recent Value LTG Status new at 12/23/2019 1600 LTG Def[place] Level modified independent at 12/23/2019 1600 LTG Assistive Device 2 wheeled walker (FWW) at 12/23/2019 1600 Gait Goal Most Recent Value LTG Status new at 12/23/2019 1600 LTG Def[place] Level stand by assist at 12/23/2019 1600 [...] discharge planning concerns Services Anticipated at Discharge: [facility] facility Equipment Used at Home: cane, straight, single point, 2 wheeled walker (FWW) Equipment Needed after Discharge: walker, standard Durable Medical Equipment Provider: Pharmacy/Medication Needs: other (see comments)([facility] in [place], [place]) Transportation Needs: agency transportation Initial Plan Anticipated Discharge Disposition: [facility] facility Expected DC Date: other (see comments)(SNF [...] stated that he would like to go [facility] if needed before going home. Cm called [facility] and received contact info - Idalia Garduno [phone]. Cm sent referral to [facility]. Pt stated that Deanna (daughter) edgardo harmon [...] (Range of Motion), stair training, strengthening, stretching, italian ball techniques, wheelchair management/propulsio n training Recommended [...] HOB elevated Supine to Sit, Level of Defiance: moderate assist (50% patient effort) Sit to Supine, Level of Defiance: maximal assist (25% patient effort) Safety Issues: decreased use of arms for pushing/pulling, decreased use of legs for bridgin g/pushing Impairments: decreased flexibility, impaired balance, pain Transfers Additional Documentation: sit to/from stand Sit-Stand, Level of Defiance: minimal assist (75% patient effort) Stand-Sit, Level of Defiance: minimal assist (75% patient effort) Ary-Vxfkg-Jgu, Assistive Device: 2 wheeled walker (FWW) Maintain [...] LTG Status new at 12/23/2019 1600 LTG Def[place] Level supervised at 12/23/2019 1600 LTG Assistive Device none at 12/23/2019 1600 All Transfers Goal Most Recent Value LTG Status new at 12/23/2019 1600 LTG Def[place] Level modified independent at 12/23/2019 1600 LTG Assistive Device 2 wheeled walker (FWW) at 12/23/2019 1600 Gait Goal Most Recent Value LTG Status new at 12/23/2019 1600 LTG Def[place] Level stand by assist at 12/23/2019 1600 LTG Assistive Device 2 wheeled walker (FWW) at 12/23/2019 1600 LTG Distance (feet) 50 at 12/23/2019 1600 [facility] - Chasity Alston RN - 12/23/2019 5:32 [...] Melquiades Baez DO - 12/22/2019 10:34 AM [facility] Service: Orthopaedic [...] were correct. Complications: none Electronically signed by: Meluqiades Baez DO, 12/22/2019 10:35 AM [facility] lan of Care - Lise Chambers RN [...] Pacemaker in terrogation last completed on 11/11/19, [place] scientific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 EKG and Ches [...] day shift and every two hours on assembler 1st shift to monitor and medicate appropriately. 2. Staff [...] | Visit | Testing | MD [address] | | | | | | [place] [address] | | | | | | [phone] | | | | | | | | +--------+ + + + + | 03/24/ | Hospital | | Anna Edouard, | Esophagitis | | 2020 | Encounter | | [address] | | | | | | [place] [address] | | | | | | [phone] | | | | | | | | +--------+ + + + + | 03/24/ | Surgery | | Anna Edouard, | EGD | | 2019 | | | MD [address] | | | | | | [place] [address] | | | | | | [phone] | | | | | | | | +--------+ + + + + | 03/31/ | Office | Orthopedic Surgery | Meqluiades Baez | | | 2019 | Visit | | DO [address] | | | | | | [place] | | | | | | [place] [address] | | | | | | [phone] | | | | | | | | +--------+ + + + + | 04/21/ | Office | Nephrology | Isiah Jade MD | | | 2019 | Visit | | [address] | | | | | | [address] | | | | | | [address] | | | | | | | | +--------+ + + + + | 05/07/ | Office | Cardiology | Charlee Oswald | | | 2019 | Visit | | [address] | | | | | | [address] | | | | | | [place] [address] | | | | | | [phone] | | | | | | | [...] + +--------+ + + + | *TERMED* WI UPPER GI | Routin | 12/29/2019 | [...] | | | Dr | | | [place] | +---+--------+ + +--------+ +---+ + | [...] | | | POC | performed at [facility];[address] | | LABORATORY | | | | [address];[place], [place] | | | | | | [address] | | | | + + + + + + + + | Specimen | + + | | + + + + + + + | Performing | Address | City/State/Zipcode | Phone Number | | Organization | | | | + + + + + | [facility] | [address] | [place] [address] | [phone] | + + + + + POC Glucose (01/01/2020 6:29 AM PDT) + + + + + + | Component | Value | Ref Range | Performed | Pathologist | | | | | At | Signature | + + + + + + | Glucose, | 143 (H)Comment: Testing | 65 - 99 mg/dL | [facility] | | | POC | performed at [facility];[address] | | LABORATORY | | | | [address];[place] | | | | | | [address] | | | | + + + + + + + + | Specimen | + + | | + + + + + + + | Performing | Address | City/State/Zipcode | Phone Number | | Organization | | | | + + + + + | [facility] | [address] | [place] [address] | [phone] | + + + + + Basic [...] | 8.6 | 8.5 - 10.5 | [facility] | | | | | mg/dL | LABORATORY | | + + + + + + | Estimated | 23 (L)Comment: GFR <60: | >60 | [facility] | | | GFR | [...] | | | | | performed at [facility];[address] | | | | | | [facility];[place], [place] | | | | | | [address] | | | | + + + + + + + + | Specimen | + + | Blood | + + + + + + + | Performing | Address | City/State/Zipcode | Phone Number | | Organization | | | | + + + + + | [facility] | [address] | [place] [address] | [phone] | + + + + + CBC [...] 0.02Comment: Testing | 0.00 - 0.10 | [facility] | | | Absolute | performed at [facility];[address] | K/uL | LABORATORY | | | | [address];[place] | | | | | | [address] | | | | + + + + + + + + | Specimen | + + | Blood | + + + + + + + | Performing | Address | City/State/Zipcode | Phone Number | | Organization | | | | + + + + + | [facility] | [address] | [place] [address] | [phone] | + + + + + POC [...] | | | POC | performed at [facility];[address] | | LABORATORY | | | | [address];[place], [place] | | | | | | [address] | | | | + + + + + + + + | Specimen | + + | | + + + + + + + | Performing | Address | City/State/Zipcode | Phone Number | | Organization | | | | + + + + + | [facility] | [address] | [place] [address] | [phone] | + + + + + POC [...] | | | POC | performed at [facility];[address] | | LABORATORY | | | | [address];[place], [place] | | | | | | [address] | | | | + + + + + + + + | Specimen | + + | | + + + + + + + | Performing | Address | City/State/Zipcode | Phone Number | | Organization | | | | + + + + + | [facility] | [address] [facility] | [place] [address] | [phone] | + + + + + POC [...] | | | POC | performed at [facility];[address] | | LABORATORY | | | | [address];[place], [place] | | | | | | [address] | | | | + + + + + + + + | Specimen | + + | | + + + + + + + | Performing | Address | City/State/Zipcode | Phone Number | | Organization | | | | + + + + + | [facility] | [address] | [place] [address] | [phone] | + + + + + POC Glucose (12/31/2019 6:36 AM PDT) + + + + + + | Component | Value | Ref Range | Performed | Pathologist | | | | | At | Signature | + + + + + + | Glucose, | 154 (H)Comment: Testing | 65 - 99 mg/dL | [facility] | | | POC | performed at [facility];[address] | | LABORATORY | | | | [address];[place] | | | | | | [address] | | | | + + + + + + + + | Specimen | + + | | + + + + + + + | Performing | Address | City/State/Zipcode | Phone Number | | Organization | | | | + + + + + | [facility] | [address] | [place] [address] | [phone] | + + + + + Basic [...] 18 (L)Comment: GFR <60: | >60 | KR [...] | | | | | | MDRD IDND traceable | | | | | | equation.Testing | | | | | | performed at [facility], [address] | | | | | | [facility], | | | | | | [place] [address] | | | | + + + + + + + + | Specimen | + + | Blood | + + + + + + + | Performing | Address | City/State/Zipcode | Phone Number | | Organization | | | | + + + + + | [facility] | [address] | [place] [address] | [phone] | + + + + + CBC [...] 0.02Comment: Testing | 0.00 - 0.10 | [facility] | | | Absolute | performed at [facility], [address] | K/uL | LABORATORY | | | | [address], | | | | | | [place] [address] | | | | + + + + + + + + | Specimen | + + | Blood | + + + + + + + | Performing | Address | City/State/Zipcode | Phone Number | | Organization | | | | + + + + + | [facility] | [address] | [place] [address] | [phone] | + + + + + POC [...] | | | POC | performed at [facility];[address] | | LABORATORY | | | | [address];[place] | | | | | | [address] | | | | + + + + + + + + | Specimen | + + | | + + + + + + + | Performing | Address | City/State/Zipcode | Phone Number | | Organization | | | | + + + + + | [facility] | [address] | [place] [address] | [phone] | + + + + + POC [...] | | | POC | performed at [facility];[address] | | LABORATORY | | | | [address];[place], [place] | | | | | | [address] | | | | + + + + + + + + | Specimen | + + | | + + + + + + + | Performing | Address | City/State/Zipcode | Phone Number | | Organization | | | | + + + + + | [facility] | [address] | [place] [address] | [phone] | + + + + + POC [...] | | | POC | performed at [facility];[address] | | LABORATORY | | | | [address];[place] | | | | | | [address] | | | | + + + + + + + + | Specimen | + + | | + + + + + + + | Performing | Address | City/State/Zipcode | Phone Number | | Organization | | | | + + + + + | [facility] | [address] | [place] [address] | [phone] | + + + + + Basic [...] | | | | | | MDRD [facility] traceable | | | | | | equation.Testing | | | | | | performed at [facility];[address] | | | | | | [facility];[place], [place] | | | | | | [address] | | | | + + + + + + + + | Specimen | + + | Blood | + + + + + + + | Performing | Address | City/State/Zipcode | Phone Number | | Organization | | | | + + + + + | [facility] | [address] [address] | [place] [address] | [phone] | + + + + + POC [...] | | | POC | performed at [facility];[address] | | LABORATORY | | | | [address];[place], [place] | | | | | | [address] | | | | + + + + + + + + | Specimen | + + | | + + + + + + + | Performing | Address | City/State/Zipcode | Phone Number | | Organization | | | | + + + + + | [facility] | [address] | [place] [address] | [phone] | + + + + + CBC [...] 0.03Comment: Testing | 0.00 - 0.10 | [facility] | | | Absolute | performed at [facility];888 | K/uL | LABORATORY | | | | [address];[place] | | | | | | [address] | | | | + + + + + + + + | Specimen | + + | Blood | + + + + + + + | Performing | Address | City/State/Zipcode | Phone Number | | Organization | | | | + + + + + | [facility] | [address] | [place] [address] | [phone] | + + + + + POC [...] | | | POC | performed at [facility];888 | | LABORATORY | | | | [address];[place], [place] | | | | | | [address] | | | | + + + + + + + + | Specimen | + + | | + + + + + + + | Performing | Address | City/State/Zipcode | Phone Number | | Organization | | | | + + + + + | [facility] | [address] | [place] [address] | [phone] | + + + + + Hemoglobin [...] [facility] | | | | performed at [facility];888 | | LABORATORY | | | | [address];[place], [place] | | | | | | [address] | | | | + + + + + + + + | Specimen | + + | Blood | + + + + + + + | Performing | Address | City/State/Zipcode | Phone Number | | Organization | | | | + + + + + | [facility] | [address] | [place] [address] | [phone] | + + + + + POC [...] | | | POC | performed at [facility];[address] | | LABORATORY | | | | [address];[place], [place] | | | | | | [address] | | | | + + + + + + + + | Specimen | + + | | + + + + + + + | Performing | Address | City/State/Zipcode | Phone Number | | Organization | | | | + + + + + | [facility] | [address] | [place] [address] | [phone] | + + + + + Hemoglobin [...] ALEX | | | | performed at [facility];888 | | LABORATORY | | | | [address];[place], [place] | | | | | | [address] | | | | + + + + + + + + | Specimen | + + | Blood | + + + + + + + | Performing | Address | City/State/Zipcode | Phone Number | | Organization | | | | + + + + + | [facility] | [address] | [place] [address] | [phone] | + + + + + POC [...] | | | POC | performed at [facility];888 | | LABORATORY | | | | [address];[place], [place] | | | | | | [address] | | | | + + + + + + + + | Specimen | + + | | + + + + + + + | Performing | Address | City/State/Zipcode | Phone Number | | Organization | | | | + + + + + | [facility] | [address] | [place] [address] | [phone] | + + + + + POC Glucose (12/29/2019 11:06 AM PDT) + + + + + + | Component | Value | Ref Range | Performed | Pathologist | | | | | At | Signature | + + + + + + | Glucose, | 205 (H)Comment: Testing | 65 - 99 mg/dL | [facility] | | | POC | performed at [facility];[address] | | LABORATORY | | | | [address];[place], [place] | | | | | | [address] | | | | + + + + + + + + | Specimen | + + | | + + + + + + + | Performing | Address | City/State/Zipcode | Phone Number | | Organization | | | | + + + + + | [facility] | [address] | [place] [address] | [phone] | + + + + + Surgical [...] | | technical component was performed by [facility], [address] [place] [address] | | | [place] [address] (Asset Protection Officer: Padmini Sellers MD; CLIA# | | | [id number]). Professional interpretation was performed [facility] | | | [place], [address], | | | [place] [address] (Asset Protection Officer: Oscar Maynard M.D.; CLIA#: | | | [id number]). Diagnostician: Padmini Sellers | | | MDPathologistElectronically [...] | |The technical component was performed by [facility] [facility], [address] [place] [address] (Asset Protection Officer: Padmini Sellers MD; CLIA# [id number]). Professional interpretation was performed by | | |[facility] [facility], [address] [address] (Asset Protection Officer: Oscar Maynard M.D.; CLIA#: [id number]). | | | | | |Diagnostician: Padmini [...] Performed At | + + + | [facility] | [facility] | | [facility] | [facility] | | CenterGastroenterology | | | Patient Name: Andres Guzmán | | | Procedure Date: 12/29/2019 8:36 AMMRN: [id number] | | | of : 1930 | [...] the anesthesiologist and the | | | certified medical technician assistant in the pre-procedure area in the procedure [...] | | | with Gold probe 7 Djib[place] x 5 pulses was successful with | [...] | | | AMNumber of Addenda: 0 [facility] | | | - Check hemoglobin q 6 hours for one day. | | | | | | | | |LAMONT HERNANDEZ MD | | |12/29/2019 10:19:54 AM | | |This report has been signed electronically. | | | | | |Note Initiated On: 12/29/2019 8:36 AM | | |Number of Addenda: 0 | | | | | | [facility] | | + + + [...] [facility] | | | | performed at [facility];888 | | LABORATORY | | | | [address];[place] | | | | | | [address] | | | | + + + + + + + + | Specimen | + + | Blood | + + + + + + + | Performing | Address | City/State/Zipcode | Phone Number | | Organization | | | | + + + + + | [facility] | [address] | [place] [address] | [phone] | + + + + + POC Glucose (12/29/2019 6:06 AM PDT) + + + + + + | Component | Value | Ref Range | Performed | Pathologist | | | | | At | Signature | + + + + + + | Glucose, | 146 (H)Comment: Testing | 65 - 99 mg/dL | [facility] | | | POC | performed at [facility];888 | | LABORATORY | | | | [address];[place], [place] | | | | | | [address] | | | | + + + + + + + + | Specimen | + + | | + + + + + + + | Performing | Address | City/State/Zipcode | Phone Number | | Organization | | | | + + + + + | [facility] | [address] | [place] [address] | [phone] | + + + + + CBC [...] | | | Absolute | performed at [facility];[address] | K/uL | LABORATORY | | | | [address];[place] | | | | | | [address] | | | | + + + + + + + + | Specimen | + + | Blood | + + + + + + + | Performing | Address | City/State/Zipcode | Phone Number | | Organization | | | | + + + + + | [facility] | [address] | [place] [address] | [phone] | + + + + + Shine [...] | | | | | performed at [facility];888 | | | | | | [address];[place] | | | | | | [address] | | | | + + + + + + + + | Specimen | + + | Blood | + + + + + + + | Performing | Address | City/State/Zipcode | Phone Number | | Organization | | | | + + + + + | [facility] | [address] | [place] [address] | [phone] | + + + + + Basic [...] | | | | | | MDRD [facility] traceable | | | | | | equation.Testing | | | | | | performed at [facility];888 | | | | | | [facility];[place], [place] | | | | | | [address] | | | | + + + + + + + + | Specimen | + + | Blood | + + + + + + + | Performing | Address | City/State/Zipcode | Phone Number | | Organization | | | | + + + + + | [facility] | [address] [facility] | [place] [address] | [phone] | + + + + + POC [...] | | | POC | performed at [facility];888 | | LABORATORY | | | | [address];[place], [place] | | | | | | [address] | | | | + + + + + + + + | Specimen | + + | | + + + + + + + | Performing | Address | City/State/Zipcode | Phone Number | | Organization | | | | + + + + + | [facility] | [address] | [place] [address] | [phone] | + + + + + Hemoglobin and Hematocrit (12/28/2019 10:33 PM PDT) + + + + + + | Component | Value | Ref Range | Performed | Pathologist | | | | | At | Signature | + + + + + + | Hemoglobin | 9.1 (L) | 13.2 - 17.0 | [facility] | | | | | g/dL | LABORATORY | | + + + + + + | Hematocrit | 26.6 (L)Comment: Testing | 39.0 - 50.0 % | [facility] | | | | performed at [facility];888 | | LABORATORY | | | | [address];[place] | | | | | | [address] | | | | + + + + + + + + | Specimen | + + | Blood | + + + + + + + | Performing | Address | City/State/Zipcode | Phone Number | | Organization | | | | + + + + + | [facility] | [address] | [place] [address] | [phone] | + + + + + POC [...] | | | POC | performed at [facility];[address] | | LABORATORY | | | | [address];[place], [place] | | | | | | [address] | | | | + + + + + + + + | Specimen | + + | | + + + + + + + | Performing | Address | City/State/Zipcode | Phone Number | | Organization | | | | + + + + + | [facility] | [address] | [place] [address] | [phone] | + + + + + Fecal [...] | | LABORATORY | | | | [facility];[address];[place] [address] | | | | + + + + + + + + | Specimen | + + | Stool - Stool | | specimen (specimen) | + + + + + + + | Performing | Address | City/State/Zipcode | Phone Number | | Organization | | | | + + + + + | [facility] | [address] | [place] [address] | [phone] | + + + + + POC Glucose (12/28/2019 4:32 PM PDT) + + + + + + | Component | Value | Ref Range | Performed | Pathologist | | | | | At | Signature | + + + + + + | Glucose, | 124 (H)Comment: Testing | 65 - 99 mg/dL | [facility] | | | POC | performed at [facility];888 | | LABORATORY | | | | [address];[place] | | | | | | [address] | | | | + + + + + + + + | Specimen | + + | | + + + + + + + | Performing | Address | City/State/Zipcode | Phone Number | | Organization | | | | + + + + + | [facility] | [address] | [place] [address] | [phone] | + + + + + Hemoglobin [...] [facility] | | | | performed at [facility];888 | | LABORATORY | | | | [address] [facility];[place] | | | | | | [address] | | | | + + + + + + + + | Specimen | + + | Blood | + + + + + + + | Performing | Address | City/State/Zipcode | Phone Number | | Organization | | | | + + + + + | [facility] | [address] | [place] [address] | [phone] | + + + + + POC Glucose (12/28/2019 11:59 AM PDT) + + + + + + | Component | Value | Ref Range | Performed | Pathologist | | | | | At | Signature | + + + + + + | Glucose, | 163 (H)Comment: Testing | 65 - 99 mg/dL | [facility] | | | POC | performed at [facility];888 | | LABORATORY | | | | [address];[place] | | | | | | [address] | | | | + + + + + + + + | Specimen | + + | | + + + + + + + | Performing | Address | City/State/Zipcode | Phone Number | | Organization | | | | + + + + + | [facility] | [address] | [place] [address] | [phone] | + + + + + POC [...] | | | POC | performed at [facility];[address] | | LABORATORY | | | | [address];[place], [place] | | | | | | [address] | | | | + + + + + + + + | Specimen | + + | | + + + + + + + | Performing | Address | City/State/Zipcode | Phone Number | | Organization | | | | + + + + + | [facility] | [address] | [place] [address] | [phone] | + + + + + CBC [...] | | | Absolute | performed at [facility], [address] | K/uL | LABORATORY | | | | [address], | | | | | | [place] [address] | | | | + + + + + + + + | Specimen | + + | Blood | + + + + + + + | Performing | Address | City/State/Zipcode | Phone Number | | Organization | | | | + + + + + | [facility] | [address] | [place] [address] | [phone] | + + + + + Basic [...] | | | | | performed at [facility], [address] | | | | | | [facility], | | | | | | [place] [address] | | | | + + + + + + + + | Specimen | + + | Blood | + + + + + + + | Performing | Address | City/State/Zipcode | Phone Number | | Organization | | | | + + + + + | [facility] | [address] | [place] [address] | [phone] | + + + + + POC [...] | | | POC | performed at [facility];[address] | | LABORATORY | | | | [address];[place], [place] | | | | | | [address] | | | | + + + + + + + + | Specimen | + + | | + + + + + + + | Performing | Address | City/State/Zipcode | Phone Number | | Organization | | | | + + + + + | [facility] | [address] | [place] [address] | [phone] | + + + + + POC Glucose (12/27/2019 3:30 PM PDT) + + + + + + | Component | Value | Ref Range | Performed | Pathologist | | | | | At | Signature | + + + + + + | Glucose, | 156 (H)Comment: Testing | 65 - 99 mg/dL | [facility] | | | POC | performed at [facility];[address] | | LABORATORY | | | | [address];[place] | | | | | | [address] | | | | + + + + + + + + | Specimen | + + | | + + + + + + + | Performing | Address | City/State/Zipcode | Phone Number | | Organization | | | | + + + + + | [facility] | [address] | [place] [address] | [phone] | + + + + + Red [...] | | LABORATORY | | | | [address]vd;[place] [address] | | | | + + + + + + + + | Specimen | + + | | + + + + + + + | Performing | Address | City/State/Zipcode | Phone Number | | Organization | | | | + + + + + | [facility] | [address] | [place] [address] | [phone] | + + + + + Type [...] + + + | BB BAND | [id number] | | [facility] | | | | | | LABORATORY | | + + + + + + | UNIT # | [id number] | | [facility] | | | | [...] + + + | UNIT # | [id number] | | [facility] | | | | [...] | | | RESULT | performed at [facility];888 | | LABORATORY | | | | [address];[place], [place] | | | | | | [address] | | | | + + + + + + + + | Specimen | + + | Blood | + + + + + + + | Performing | Address | City/State/Zipcode | Phone Number | | Organization | | | | + + + + + | [facility] | [address] | [place] [address] | [phone] | + + + + + POC [...] | | | POC | performed at [facility];888 | | LABORATORY | | | | [address];[place] | | | | | | [address] | | | | + + + + + + + + | Specimen | + + | | + + + + + + + | Performing | Address | City/State/Zipcode | Phone Number | | Organization | | | | + + + + + | [facility] | [address] | [place] [address] | [phone] | + + + + + CBC [...] 0.02Comment: Testing | 0.00 - 0.10 | [facility] | | | Absolute | performed at [facility], [address] | K/uL | LABORATORY | | | | [address], | | | | | | [place] [address] | | | | + + + + + + + + | Specimen | + + | | + + + + + + + | Performing | Address | City/State/Zipcode | Phone Number | | Organization | | | | + + + + + | [facility] | [address] | [place] [address] | [phone] | + + + + + Procalcitonin [...] | | | | | | at [facility];[address] [place] [address] | | | | | | [facility];[place] [address] | | | | + + + + + + + + | Specimen | + + | Blood | + + + + + + + | Performing | Address | City/State/Zipcode | Phone Number | | Organization | | | | + + + + + | [facility] | [address] | [place] [address] | [phone] | + + + + + Basic [...] | | | | | performed at [facility], [address] | | | | | | [facility], | | | | | | [place] [address] | | | | + + + + + + + + | Specimen | + + | Blood | + + + + + + + | Performing | Address | City/State/Zipcode | Phone Number | | Organization | | | | + + + + + | [facility] | [address] | [place] [address] | [phone] | + + + + + Vitamin [...] | | | | defined by the Success | | | | | | [facility] and an | | | | [...] IOM | | | | | | ([facility] of [facility]). | | | | | [...] | | | | | performed at [facility], | | | | | | [address], | | | | | | [facility] [address] | | | | + + + + + + + + | Specimen | + + | Blood | + + + + + + + | Performing | Address | City/State/Zipcode | Phone Number | | Organization | | | | + + + + + | [facility] | [address] | [place] [address] | [phone] | + + + + + Potassium (12/27/2019 12:08 AM PDT) + + + + + + | Component | Value | Ref Range | Performed | Pathologist | | | | | At | Signature | + + + + + + | K | 4.0Comment: Testing | 3.5 - 4.9 | [facility] | | | | performed at [facility];888 | mmol/L | LABORATORY | | | | [address];[place] | | | | | | [address] | | | | + + + + + + + + | Specimen | + + | Blood | + + + + + + + | Performing | Address | City/State/Zipcode | Phone Number | | Organization | | | | + + + + + | [facility] | [address] | [place] [address] | [phone] | + + + + + Magnesium (12/27/2019 12:08 AM PDT) + + + + + + | Component | Value | Ref Range | Performed | Pathologist | | | | | At | Signature | + + + + + + | Magnesium | 2.2Comment: Testing | 1.7 - 2.4 mg/dL | [facility] | | | | performed at [facility];[address] | | LABORATORY | | | | [address];[place] | | | | | | [address] | | | | + + + + + + + + | Specimen | + + | Blood | + + + + + + + | Performing | Address | City/State/Zipcode | Phone Number | | Organization | | | | + + + + + | [facility] | [address] [facility] | [place] [address] | [phone] | + + + + + ECG [...] | | | POC | performed at [facility];[address] | | LABORATORY | | | | [address];[place] | | | | | | [address] | | | | + + + + + + + + | Specimen | + + | | + + + + + + + | Performing | Address | City/State/Zipcode | Phone Number | | Organization | | | | + + + + + | [facility] | [address] | [place] [address] | [phone] | + + + + + POC [...] | | | POC | performed at [facility];[address] | | LABORATORY | | | | [address];[place], [place] | | | | | | [address] | | | | + + + + + + + + | Specimen | + + | | + + + + + + + | Performing | Address | City/State/Zipcode | Phone Number | | Organization | | | | + + + + + | [facility] | [address] [facility] [facility] [address] | [place] [address] | [phone] | + + + + + Complement [...] | | | COMPLEMENT | performed at [facility], | | LABORATORY | | | | [address], | | | | | | [place] [address] | | | | + + + + + + + + | Specimen | + + | | + + + + + + + | Performing | Address | City/State/Zipcode | Phone Number | | Organization | | | | + + + + + | [facility] | [address] | [place] [address] | [phone] | + + + + + Complement C3 Ag (12/26/2019 12:33 PM PDT) + + + + + + | Component | Value | Ref Range | Performed | Pathologist | | | | | At | Signature | + + + + + + | C3 | 53 (L)Comment: Testing | 82 - 167 mg/dL | [facility] | | | COMPLEMENT | performed at [facility], | | LABORATORY | | | | [address], | | | | | | [facility] [address] | | | | + + + + + + + + | Specimen | + + | | + + + + + + + | Performing | Address | City/State/Zipcode | Phone Number | | Organization | | | | + + + + + | [facility] | [address] | [place] [address] | [phone] | + + + + + POC [...] | | | POC | performed at [facility];[address] | | LABORATORY | | | | [address];[place] | | | | | | [address] | | | | + + + + + + + + | Specimen | + + | | + + + + + + + | Performing | Address | City/State/Zipcode | Phone Number | | Organization | | | | + + + + + | [facility] | [address] | [place] [address] | [phone] | + + + + + POC [...] | | | POC | performed at [facility];[address] | | LABORATORY | | | | [address];[place], [place] | | | | | | [address] | | | | + + + + + + + + | Specimen | + + | | + + + + + + + | Performing | Address | City/State/Zipcode | Phone Number | | Organization | | | | + + + + + | [facility] | [address] | [place] [address] | [phone] | + + + + + Parathyroid Hormone, Intraoperative (12/26/2019 4:25 AM PDT) + + + + + + | Component | Value | Ref Range | Performed | Pathologist | | | | | At | Signature | + + + + + + | PTH Intact | 167.0 (H)Comment: | 8.7 - 79.6 | [facility] | | | | Testing performed at | pg/mL | LABORATORY | | | | [facility];[address] | | | [address];[place] [address] | | | | + + + + + + + + | Specimen | + + | | + + + + + + + | Performing | Address | City/State/Zipcode | Phone Number | | Organization | | | | + + + + + | [facility] | [address] | [place] [address] | [phone] | + + + + + Renal [...] 13 (L)Comment: GFR <60: | >60 | [facility] | | | GFR | [...] | | | | | performed at [facility], [address] | | | | | | [facility], | | | | | | [place] [address] | | | | + + + + + + + + | Specimen | + + | Blood | + + + + + + + | Performing | Address | City/State/Zipcode | Phone Number | | Organization | | | | + + + + + | [facility] | [address] | [place] [address] | [phone] | + + + + + POC Glucose (12/25/2019 8:53 PM PDT) + + + + + + | Component | Value | Ref Range | Performed | Pathologist | | | | | At | Signature | + + + + + + | Glucose, | 169 (H)Comment: Testing | 65 - 99 mg/dL | [facility] | | | POC | performed at [facility];[address] | | LABORATORY | | | | [address];[place] | | | | | | [address] | | | | + + + + + + + + | Specimen | + + | | + + + + + + + | Performing | Address | City/State/Zipcode | Phone Number | | Organization | | | | + + + + + | [facility] | [address] | [place] [address] | [phone] | + + + + + POC [...] | | | POC | performed at [facility];[address] | | LABORATORY | | | | [address];[place] | | | | | | [address] | | | | + + + + + + + + | Specimen | + + | | + + + + + + + | Performing | Address | City/State/Zipcode | Phone Number | | Organization | | | | + + + + + | [facility] | [address] | [place] [address] | [phone] | + + + + + ECHO [...] | | | POC | performed at [facility];[address] | | LABORATORY | | | | [address];[place], [place] | | | | | | [address] | | | | + + + + + + + + | Specimen | + + | | + + + + + + + | Performing | Address | City/State/Zipcode | Phone Number | | Organization | | | | + + + + + | [facility] | [address] | [place] [address] | [phone] | + + + + + POC Glucose (12/25/2019 7:56 AM PDT) + + + + + + | Component | Value | Ref Range | Performed | Pathologist | | | | | At | Signature | + + + + + + | Glucose, | 136 (H)Comment: Testing | 65 - 99 mg/dL | [facility] | | | POC | performed at [facility];[address] | | LABORATORY | | | | [address];[place] | | | | | | [address] | | | | + + + + + + + + | Specimen | + + | | + + + + + + + | Performing | Address | City/State/Zipcode | Phone Number | | Organization | | | | + + + + + | [facility] | [address] | [place] [address] | [phone] | + + + + + CK Total (12/25/2019 4:25 AM PDT) + + + + + + | Component | Value | Ref Range | Performed | Pathologist | | | | | At | Signature | + + + + + + | CK TOTAL | 104Comment: Testing | 55 - 400 U/L | [facility] | | | | performed at [facility];[address] | | LABORATORY | | | | [address];[place] | | | | | | [address] | | | | + + + + + + + + | Specimen | + + | Blood | + + + + + + + | Performing | Address | City/State/Zipcode | Phone Number | | Organization | | | | + + + + + | [facility] | [address] | [place] [address] | [phone] | + + + + + Renal [...] 13 (L)Comment: GFR <60: | >60 | [facility] | | | GFR | [...] | | | | | | [facility] traceable | | | | | | equation.Testing | | | | | | performed at [facility], [address] | | | | | | [facility], | | | | | | [place] [address] | | | | + + + + + + + + | Specimen | + + | Blood | + + + + + + + | Performing | Address | City/State/Zipcode | Phone Number | | Organization | | | | + + + + + | [facility] | [address] | [place] [address] | [phone] | + + + + + Cytoplasmic [...] | | | | | with both [place]-3 and | | | | | | [...] | | | | | [address] [facility], | | | | | | [facility] [address] | | | | + + + + + + + + | Specimen | + + | Blood | + + + + + + + | Performing | Address | City/State/Zipcode | Phone Number | | Organization | | | | + + + + + | [facility] | [address] | [place] [address] | [phone] | + + + + + Sedimentation Rate (12/25/2019 4:22 AM PDT) + + + + + + | Component | Value | Ref Range | Performed | Pathologist | | | | | At | Signature | + + + + + + | ESR | 6Comment: Testing | 0 - 20 mm/Hr | [facility] | | | | performed at [facility], [address] | | LABORATORY | | | | [address], | | | | | | [place] [address] | | | | + + + + + + + + | Specimen | + + | Blood | + + + + + + + | Performing | Address | City/State/Zipcode | Phone Number | | Organization | | | | + + + + + | [facility] | [address] | [place] [address] | [phone] | + + + + + Immunoglobulin, Free Light Chain (12/25/2019 4:22 AM PDT) + + + + + + | Component | Value | Ref Range | Performed | Pathologist | | | | | At | Signature | + + + + + + | [place] Free | 121.2 (H) | 3.3 - [...] + + + + + + | [place] | 1.25Comment: Testing | 0.26 - 1.65 | [facility] | | | a Free | performed at [facility] | | LABORATORY | | | Light Chain | [place], [address] | | | | | Ratio | [place] [address] | | | | + + + + + + + + | Specimen | + + | Blood | + + + + + + + | Performing | Address | City/State/Zipcode | Phone Number | | Organization | | | | + + + + + | [facility] | [address] | [place] [address] | [phone] | + + + + + Glomerular [...] | | | | | | [facility], [address] [place] [address] | | | | | | [place] | | | | | | [address] | | | | + + + + + + + + | Specimen | + + | Blood | + + + + + + + | Performing | Address | City/State/Zipcode | Phone Number | | Organization | | | | + + + + + | [facility] | [address] | [place] [address] | [phone] | + + + + + Hepatitis [...] | 0.9The [facility] recommends | | | | | | that a positive HCV | | | | | | antibody resultbe | | | | | | followed up with a HCV | | | | | | Nucleic Acid | | | | | | Amplificationtest | | | | | | ([id number]).Testing | | | | | | performed at [facility], | | | | | | [address], | | | | | | [facility] [address] | | | | + + + + + + + + | Specimen | + + | Blood | + + + + + + + | Performing | Address | City/State/Zipcode | Phone Number | | Organization | | | | + + + + + | [facility] | [address] | [place] [address] | [phone] | + + + + + CK Total (12/25/2019 4:22 AM PDT) + + + + + + | Component | Value | Ref Range | Performed | Pathologist | | | | | At | Signature | + + + + + + | CK TOTAL | 100Comment: Testing | 55 - 400 U/L | [facility] | | | | performed at [facility] | | LABORATORY | | | | [address];[place] | | | | | | [address] | | | | + + + + + + + + | Specimen | + + | Blood | + + + + + + + | Performing | Address | City/State/Zipcode | Phone Number | | Organization | | | | + + + + + | [facility] | [address] | [place] [address] | [phone] | + + + + + Lactate Dehydrogenase (12/25/2019 4:22 AM PDT) + + + + + + | Component | Value | Ref Range | Performed | Pathologist | | | | | At | Signature | + + + + + + | LDH TOTAL | 154Comment: Testing | 120 - 246 U/L | [facility] | | | | performed at [facility];[address] | | LABORATORY | | | | [address];[place] | | | | | | [address] | | | | + + + + + + + + | Specimen | + + | Blood | + + + + + + + | Performing | Address | City/State/Zipcode | Phone Number | | Organization | | | | + + + + + | [facility] | [address] | [place] [address] | [phone] | + + + + + Magnesium (12/25/2019 4:22 AM PDT) + + + + + + | Component | Value | Ref Range | Performed | Pathologist | | | | | At | Signature | + + + + + + | Magnesium | 2.5 (H)Comment: Testing | 1.7 - 2.4 mg/dL | [facility] | | | | performed at [facility], [address] | | LABORATORY | | | | [address], | | | | | | [place] [address] | | | | + + + + + + + + | Specimen | + + | Blood | + + + + + + + | Performing | Address | City/State/Zipcode | Phone Number | | Organization | | | | + + + + + | [facility] | [address] | [place] [address] | [phone] | + + + + + Protein, Urine, Random (12/25/2019 12:01 AM PDT) + + + + + + | Component | Value | Ref Range | Performed | Pathologist | | | | | At | Signature | + + + + + + | Protein, | 131Comment: NO NORMAL | mg/dL | [facility] | | | Urine | [facility] ESTABLISHEDTesting | | LABORATORY | | | | performed at [facility], [address] | | | | | [address], | | | | | | [place] [address] | | | | + + + + + + + + | Specimen | + + | | + + + + + + + | Performing | Address | City/State/Zipcode | Phone Number | | Organization | | | | + + + + + | [facility] | [address] | [place] [address] | [phone] | + + + + + Creatinine, Urine, Random (12/25/2019 12:01 AM PDT) + + + + + + | Component | Value | Ref Range | Performed | Pathologist | | | | | At | Signature | + + + + + + | Creatinine, | 139.0Comment: NO NORMAL | mg/dL | [facility] | | | random | [facility] ESTABLISHEDTesting | | LABORATORY | | | urine | performed at [facility], [address] | | | | | | [address] [facility], | | | | | | [place] [address] | | | | + + + + + + + + | Specimen | + + | | + + + + + + + | Performing | Address | City/State/Zipcode | Phone Number | | Organization | | | | + + + + + | [facility] | [address] | [place] [address] | [phone] | + + + + + Protein/Creatinine Ratio, Urine (12/25/2019 12:01 AM PDT) + + + + + + | Component | Value | Ref Range | Performed | Pathologist | | | | | At | Signature | + + + + + + | PRO/CREA | 0.942Comment: Testing | | [facility] | | | RATIO,URINE | performed at [facility], [address] | | LABORATORY | | | | [address], | | | | | | [place] [address] | | | | + + + + + + + + | Specimen | + + | Urine | + + + + + + + | Performing | Address | City/State/Zipcode | Phone Number | | Organization | | | | + + + + + | [facility] | [address] | [place] [address] | [phone] | + + + + + POC [...] | | | POC | performed at [facility];[address] | | LABORATORY | | | | [address];[place], [place] | | | | | | [address] | | | | + + + + + + + + | Specimen | + + | | + + + + + + + | Performing | Address | City/State/Zipcode | Phone Number | | Organization | | | | + + + + + | [facility] | [address] | [place] [address] | [phone] | + + + + + POC [...] | | | POC | performed at [facility];[address] | | LABORATORY | | | | [address];[place] | | | | | | [address] | | | | + + + + + + + + | Specimen | + + | | + + + + + + + | Performing | Address | City/State/Zipcode | Phone Number | | Organization | | | | + + + + + | [facility] | [address] | [place] [address] | [phone] | + + + + + ECG [...] | | | Arterial, | performed at [facility];[address] | | LABORATORY | | | POC | [address];[place], [place] | | | | | | [address] | | | | + + + + + + + + | Specimen | + + | | + + + + + + + | Performing | Address | City/State/Zipcode | Phone Number | | Organization | | | | + + + + + | [facility] | [address] [facility] [address] [facility] | [place] [address] | [phone] | + + + + + Coronavirus (COVID-19) NAAT (12/24/2019 1:10 PM PDT) + + + + + + | Component | Value | Ref Range | Performed | Pathologist | | | | | At | Signature | + + + + + + | SARS-CoV-2, | NEGATIVEComment: Testing | NEG | [facility] | | | NAAT | performed at [facility];[address] | | LABORATORY | | | (COVID-19) | [address];[place], [place] | | | | | | [address] | | | | + + + + + + + + | Specimen | + + | Tissue - Entire | | nasopharynx (body | | structure) | + + + + + + + | Performing | Address | City/State/Zipcode | Phone Number | | Organization | | | | + + + + + | [facility] | [address] | [place] [address] | [phone] | + + + + + Culture, [...] | [facility] | | | Requests | [address] | | LABORATORY | | | | [address];[place] [address] | | | | + + + + + + | RESULT | NO GROWTH 6 DAYS | | [facility] | | | | | | LABORATORY | | + + + + + + | RESULT | Testing performed at | | [facility] | | | | [facility], [address] | | LABORATORY | | | | [address], [place], [place] | | | | | | [address]Cighsay: Testing | | | | | | performed at [facility], [address] | | | | | | [facility], [place], [place] | | | | | | [address] | | | | + + + + + + + + | Specimen | + + | Blood - Peripheral | | blood specimen | | (specimen) | + + + + + + + | Performing | Address | City/State/Zipcode | Phone Number | | Organization | | | | + + + + + | [facility] | [address] [facility] | [place] [address] | [phone] | + + + + + Culture, [...] | [facility] | | | Requests | [facility] [address] | | LABORATORY | | | | [address]vd;[place] [address] | | | | + + + + + + | RESULT | NO GROWTH 6 DAYS | | [facility] | | | | | | LABORATORY | | + + + + + + | RESULT | Testing performed at | | [facility] | | | | [facility], [address] | | LABORATORY | | | | [place], [place] | | | | | | [address]Xhmxuqk: Testing | | | | | | performed at [facility], [address] | | | | | | [address] [facility] [place], [place] | | | | | | [address] | | | | + + + + + + + + | Specimen | + + | Blood - Peripheral | | blood specimen | | (specimen) | + + + + + + + | Performing | Address | City/State/Zipcode | Phone Number | | Organization | | | | + + + + + | [facility] | [address] | [place] [address] | [phone] | + + + + + Urinalysis [...] - 1.030 | [facility] | | | [place], | | | LABORATORY | | | [...] | 1+ (A)Comment: Testing | NONE | [facility] | | | Urine | performed at [facility], [address] | | LABORATORY | | | | [address], | | | | | | [place] [address] | | | | + + + [...] | + + + + + | [facility] | [address] | [place] [address] | [phone] | + + + + + Sodium, [...] | | | urine | performed at [facility], [address] | | | | | | [address], | | | | | | [place] [address] | | | | + + + [...] | + + + + + | [facility] | [address] | [place] [address] | [phone] | + + + + + Creatinine, [...] | | | urine | performed at [facility], [address] | | | | | | [address], | | | | | | [place] [address] | | | | + + + [...] | + + + + + | [facility] | [address] | [place] [address] | [phone] | + + + + + Lactic Acid (12/24/2019 12:27 PM PDT) + + + + + + | Component | Value | Ref Range | Performed | Pathologist | | | | | At | Signature | + + + + + + | Lactate, | 1.6Comment: Testing | 0.4 - 2.0 | [facility] | | | Serum | performed at [facility];[address] | mmol/L | LABORATORY | | | | [address];[place], [place] | | | | | | [address] | | | | + + + + + + + + | Specimen | + + | Blood | + + + + + + + | Performing | Address | City/State/Zipcode | Phone Number | | Organization | | | | + + + + + | [facility] | [address] | [place] [address] | [phone] | + + + + + Procalcitonin (12/24/2019 12:27 PM PDT) + + + + + + | Component | Value | Ref Range | Performed | Pathologist | | | | | At | Signature | + + + + + + | PROCALCITON | 0.69 (H)Comment: | <0.5 ng/mL | [facility] | | | IN | [...] | | | | | | at [facility];[address] [place] [address] | | | | | | [facility];[place] [address] | | | | + + + + + + + + | Specimen | + + | Blood | + + + + + + + | Performing | Address | City/State/Zipcode | Phone Number | | Organization | | | | + + + + + | [facility] | [address] | [place] [address] | [phone] | + + + + + POC Glucose (12/24/2019 12:25 PM PDT) + + + + + + | Component | Value | Ref Range | Performed | Pathologist | | | | | At | Signature | + + + + + + | Glucose, | 143 (H)Comment: Testing | 65 - 99 mg/dL | [facility] | | | POC | performed at [facility];[address] | | LABORATORY | | | | [address];[place] | | | | | | [address] | | | | + + + + + + + + | Specimen | + + | | + + + + + + + | Performing | Address | City/State/Zipcode | Phone Number | | Organization | | | | + + + + + | [facility] | [address] | [place] [address] | [phone] | + + + + + POC [...] | | | POC | performed at [facility];[address] | | LABORATORY | | | | [address];[place], [place] | | | | | | [address] | | | | + + + + + + + + | Specimen | + + | | + + + + + + + | Performing | Address | City/State/Zipcode | Phone Number | | Organization | | | | + + + + + | [facility] | [address] | [place] [address] | [phone] | + + + + + CBC [...] LABORATORY | | | | performed at [facility];[address] | | | | | | [address];[place] | | | | | | [address] | | | | + + + + + + + + | Specimen | + + | Blood | + + + + + + + | Performing | Address | City/State/Zipcode | Phone Number | | Organization | | | | + + + + + | [facility] | [address] | [place] [address] | [phone] | + + + + + Basic [...] | | | | | performed at [facility], [address] | | | | | | [facility], | | | | | | [place] [address] | | | | + + + + + + + + | Specimen | + + | Blood | + + + + + + + | Performing | Address | City/State/Zipcode | Phone Number | | Organization | | | | + + + + + | [facility] | [address] | [place] [address] | [phone] | + + + + + POC Glucose (12/23/2019 8:35 PM PDT) + + + + + + | Component | Value | Ref Range | Performed | Pathologist | | | | | At | Signature | + + + + + + | Glucose, | 135 (H)Comment: Testing | 65 - 99 mg/dL | [facility] | | | POC | performed at [facility];[address] | | LABORATORY | | | | [address];[place], [place] | | | | | | [address] | | | | + + + + + + + + | Specimen | + + | | + + + + + + + | Performing | Address | City/State/Zipcode | Phone Number | | Organization | | | | + + + + + | [facility] | [address] | [place] [address] | [phone] | + + + + + POC [...] | | | POC | performed at [facility];[address] | | LABORATORY | | | | [address];[place], [place] | | | | | | [address] | | | | + + + + + + + + | Specimen | + + | | + + + + + + + | Performing | Address | City/State/Zipcode | Phone Number | | Organization | | | | + + + + + | [facility] | [address] | [place] [address] | [phone] | + + + + + POC Glucose (12/23/2019 2:05 PM PDT) + + + + + + | Component | Value | Ref Range | Performed | Pathologist | | | | | At | Signature | + + + + + + | Glucose, | 158 (H)Comment: Testing | 65 - 99 mg/dL | [facility] | | | POC | performed at [facility];[address] | | LABORATORY | | | | [address];[place] | | | | | | [address] | | | | + + + + + + + + | Specimen | + + | | + + + + + + + | Performing | Address | City/State/Zipcode | Phone Number | | Organization | | | | + + + + + | [facility] | [address] | [place] [address] | [phone] | + + + + + POC [...] | | | POC | performed at [facility];[address] | | LABORATORY | | | | [address];[place] | | | | | | [address] | | | | + + + + + + + + | Specimen | + + | | + + + + + + + | Performing | Address | City/State/Zipcode | Phone Number | | Organization | | | | + + + + + | [facility] | [address] | [place] [address] | [phone] | + + + + + Basic [...] | | | | | performed at [facility];[address] | | | | | | [facility];[place], [place] | | | | | | [address] | | | | + + + + + + + + | Specimen | + + | Blood | + + + + + + + | Performing | Address | City/State/Zipcode | Phone Number | | Organization | | | | + + + + + | [facility] | [address] [facility] | [place] [address] | [phone] | + + + + + Phosphorus (12/23/2019 4:04 AM PDT) + + + + + + | Component | Value | Ref Range | Performed | Pathologist | | | | | At | Signature | + + + + + + | Phosphorus | 4.6Comment: Testing | 2.3 - 4.8 mg/dL | [facility] | | | | performed at [facility];[address] | | LABORATORY | | | | [facility];[place], [place] | | | | | | [address] | | | | + + + + + + + + | Specimen | + + | Blood | + + + + + + + | Performing | Address | City/State/Zipcode | Phone Number | | Organization | | | | + + + + + | [facility] | [address] | [place] [address] | [phone] | + + + + + Magnesium (12/23/2019 4:04 AM PDT) + + + + + + | Component | Value | Ref Range | Performed | Pathologist | | | | | At | Signature | + + + + + + | Magnesium | 2.1Comment: Testing | 1.7 - 2.4 mg/dL | [facility] | | | | performed at [facility];[address] | | LABORATORY | | | | [address];[place] | | | | | | [address] | | | | + + + + + + + + | Specimen | + + | Blood | + + + + + + + | Performing | Address | City/State/Zipcode | Phone Number | | Organization | | | | + + + + + | [facility] | [address] | [place] [address] | [phone] | + + + + + CBC [...] LABORATORY | | | | performed at [facility];[address] | | | | | | [address];[place], [place] | | | | | | [address] | | | | + + + + + + + + | Specimen | + + | Blood | + + + + + + + | Performing | Address | City/State/Zipcode | Phone Number | | Organization | | | | + + + + + | [facility] | [address] | [place] [address] | [phone] | + + + + + Hemoglobin (12/22/2019 9:37 PM PDT) + + + + + + | Component | Value | Ref Range | Performed | Pathologist | | | | | At | Signature | + + + + + + | Hemoglobin | 9.1 (L)Comment: Testing | 13.2 - 17.0 | [facility] | | | | performed at [facility];[address] | g/dL | LABORATORY | | | | [address];[place] | | | | | | [address] | | | | + + + + + + + + | Specimen | + + | Blood | + + + + + + + | Performing | Address | City/State/Zipcode | Phone Number | | Organization | | | | + + + + + | [facility] | [address] | [place] [address] | [phone] | + + + + + Hematocrit (12/22/2019 9:37 PM PDT) + + + + + + | Component | Value | Ref Range | Performed | Pathologist | | | | | At | Signature | + + + + + + | Hematocrit | 27.4 (L)Comment: Testing | 39.0 - 50.0 % | [facility] | | | | performed at [facility];[address] | | LABORATORY | | | | [address];[place] | | | | | | [address] | | | | + + + + + + + + | Specimen | + + | Blood | + + + + + + + | Performing | Address | City/State/Zipcode | Phone Number | | Organization | | | | + + + + + | [facility] | [address] | [place] [address] | [phone] | + + + + + POC [...] | | | POC | performed at [facility];[address] | | LABORATORY | | | | [address];[place] | | | | | | [address] | | | | + + + + + + + + | Specimen | + + | | + + + + + + + | Performing | Address | City/State/Zipcode | Phone Number | | Organization | | | | + + + + + | [facility] | [address] | [place] [address] | [phone] | + + + + + POC Glucose (12/22/2019 5:32 PM PDT) + + + + + + | Component | Value | Ref Range | Performed | Pathologist | | | | | At | Signature | + + + + + + | Glucose, | 153 (H)Comment: Testing | 65 - 99 mg/dL | [facility] | | | POC | performed at [facility];[address] | | LABORATORY | | | | [address];[place] | | | | | | [address] | | | | + + + + + + + + | Specimen | + + | | + + + + + + + | Performing | Address | City/State/Zipcode | Phone Number | | Organization | | | | + + + + + | [facility] | [address] | [place] [address] | [phone] | + + + + + Red [...] | [facility] | | | COMMENT | [facility];[address] | | LABORATORY | | | | [address];[place] [address] | | | | + + + + + + + + | Specimen | + + | | + + + + + + + | Performing | Address | City/State/Zipcode | Phone Number | | Organization | | | | + + + + + | [facility] | [address] | [place] [address] | [phone] | + + + + + POC Glucose (12/22/2019 10:38 AM PDT) + + + + + + | Component | Value | Ref Range | Performed | Pathologist | | | | | At | Signature | + + + + + + | Glucose, | 161 (H)Comment: Testing | 65 - 99 mg/dL | [facility] | | | POC | performed at [facility];[address] | | LABORATORY | | | | [address];[place] | | | | | | [address] | | | | + + + + + + + + | Specimen | + + | | + + + + + + + | Performing | Address | City/State/Zipcode | Phone Number | | Organization | | | | + + + + + | [facility] | [address] | [place] [address] | [phone] | + + + + + NATHALIA [...] + + | Performing | Address | City/State/[facility] | Phone Number | | Organization | | | | + +---------+ + + | [facility] | | | | + +---------+ + + POC HAVEN CACERES8, Arterial (12/22/2019 10:03 AM PDT) + + [...] | | | POC | performed at [facility];888 | g/dL | LABORATORY | | | | [address];[place], [place] | | | | | | [address] | | | | + + + + + + + + | Specimen | + + | | + + + + + + + | Performing | Address | City/State/Zipcode | Phone Number | | Organization | | | | + + + + + | [facility] | [address] | [place] [address] | [phone] | + + + + + POC [...] | | | POC | performed at [facility];888 | g/dL | LABORATORY | | | | [address];[place], [place] | | | | | | [address] | | | | + + + + + + + + | Specimen | + + | | + + + + + + + | Performing | Address | City/State/Zipcode | Phone Number | | Organization | | | | + + + + + | [facility] | [address] | [place] [address] | [phone] | + + + + + POC ISTAT, CG8, Arterial (12/22/2019 8:47 AM PDT) + + + + + + | Component | Value | Ref Range | Performed | Pathologist | | | | | At | Signature | + + + + + + | pH, | 7.341 (L) | 7.350 - 7.450 | [facility] | | | Arterial, | | | [...] | | | POC | performed at [facility];888 | g/dL | LABORATORY | | | | [address];[place], [place] | | | | | | [address] | | | | + + + + + + + + | Specimen | + + | | + + + + + + + | Performing | Address | City/State/Zipcode | Phone Number | | Organization | | | | + + + + + | [facility] | [address] | [place] [address] | [phone] | + + + + + POC [...] (L)Comment: Testing | 13.7 - 16.7 | [facility] | | | POC | performed at [facility];888 | g/dL | LABORATORY | | | | [address];[place], [place] | | | | | | [address] | | | | + + + + + + + + | Specimen | + + | | + + + + + + + | Performing | Address | City/State/Zipcode | Phone Number | | Organization | | | | + + + + + | [facility] | [address] | [place] [address] | [phone] | + + + + + Type [...] + + + | BB BAND | [id number] | | [facility] | | | | | | LABORATORY | | + + + + + + | UNIT # | [id number] | | [facility] | | | | [...] | | | RESULT | performed at [facility];888 | | LABORATORY | | | | [address];[place], [place] | | | | | | [address] | | | | + + + + + + | UNIT # | [id number] | | [facility] | | | | [...] [facility] | [address] | [place] [address] | [phone] | + + + + + POC [...] | | | POC | performed at [facility];[address] | | LABORATORY | | | | [address];[place], [place] | | | | | | [address] | | | | + + + + + + + + | Specimen | + + | | + + + + + + + | Performing | Address | City/State/Zipcode | Phone Number | | Organization | | | | + + + + + | [facility] | [address] | [place] [address] | [phone] | + + + + + Protime [...] | | | | | performed at [facility];888 | | | | | | [address];[place] | | | | | | [address] | | | | + + + + + + + + | Specimen | + + | Blood | + + + + + + + | Performing | Address | City/State/Zipcode | Phone Number | | Organization | | | | + + + + + | [facility] | [address] | [place] [address] | [phone] | + + + + + CBC [...] | | | | | [place] [address] | | | | + + + + + + + + | Specimen | + + | Blood | + + + + + + + | Performing | Address | City/State/Zipcode | Phone Number | | Organization | | | | + + + + + | [facility] | [address] | [place] [address] | [phone] | + + + + + Magnesium (12/22/2019 5:26 AM PDT) + + + + + + | Component | Value | Ref Range | Performed | Pathologist | | | | | At | Signature | + + + + + + | Magnesium | 2.6 (H)Comment: Testing | 1.7 - 2.4 mg/dL | [facility] | | | | performed at [facility], [address] | | LABORATORY | | | | [address], | | | | | | [place] [address] | | | | + + + + + + + + | Specimen | + + | Blood | + + + + + + + | Performing | Address | City/State/Zipcode | Phone Number | | Organization | | | | + + + + + | [facility] | [address] | [place] [address] | [phone] | + + + + + Basic [...] | | | | | performed at [facility], [address] | | | | | | [facility], | | | | | | [place] [address] | | | | + + + + + + + + | Specimen | + + | Blood | + + + + + + + | Performing | Address | City/State/Zipcode | Phone Number | | Organization | | | | + + + + + | [facility] | [address] | [place] [address] | [phone] | + + + + + POC [...] | | | POC | performed at [facility];[address] | | LABORATORY | | | | [address];[place], [place] | | | | | | [address] | | | | + + + + + + + + | Specimen | + + | | + + + + + + + | Performing | Address | City/State/Zipcode | Phone Number | | Organization | | | | + + + + + | [facility] | [address] | [place] [address] | [phone] | + + + + + POC [...] | | | POC | performed at [facility];[address] | | LABORATORY | | | | [address];[place] | | | | | | [address] | | | | + + + + + + + + | Specimen | + + | | + + + + + + + | Performing | Address | City/State/Zipcode | Phone Number | | Organization | | | | + + + + + | [facility] | [address] | [place] [address] | [phone] | + + + + + documented [...] without mention of obstruction | + + | Esophagitis - Primary [...] | | | | | 1500, Abhijit well. Use with | | | | [...] | | | | First dose on Mon12/23/19 at 0900, | | PM PDT | [...] | | | | | | longer, syzowg-cyh-qbhaq use of | | | | | [...] | | (NORCO) 5-325 mg per tablet - | | 20 8:07 | | | | | tablet 1-2 tablet, Oral, EVERY 4 | | AM PDT | | | | | HOURS PRN, Pain, Moderate Pain, | | | | | | | Starting 12/21/19 at 2126, If | | | | | | | ineffective use Minden 10/325 if | | | | | [...] | | | | | | Starting Marta 12/26/19 at 1637 | | | | [...] | | | | | | | 9355-7301 Use NIGHT DOSE for | | | | | | | doses scheduled: HS, | | | | | | | Nighttime 8370-0568 If the BG is | | | [...] | mL/hr | | | CONTINUOUS, Starting Mon12/24/19 | | PM PDT | | | [...] | | | | | | | e 12/24/19 at 1300, For 1 dose, | [...] | | | (after last modification) on Mon | | | | | | | [...] | | | 0817, For 1 dose, nares, Pre-op | | | | | | [...] | | | | | Minutes, ONCE, [facility] 12/26/19 at | | | | | [...] 20 5:13 | | | | | AYAN, First dose on 12/21/19 | | PM [...]
--- OUTSIDE RECORDS SUMMARY | ~2020-03-21 | XMS | Encounter Summary ---
Demographics + + + | Address | [address] | | | [place] [address] | + + + | Home Phone | | + + + | Preferred Language | Unknown | + + + | Marital Status | | + + + | Baptist Affiliation | 1001 | + + + | Race | Unknown | + + + | Ethnic Group | Unknown | + + + Author + + + | Author | [facility] | | | and [place] | + + + | Organization | [facility] | | [...] [place] | | | | | [address] | | + + + + + | Deanna Lawson | ECON | Unknown | | + + + + + Care Team Providers + +------+ + | Care Business Development Consultant Name | Role | Phone | + [...] + + | 02/05/ | Office | [facility] | Dina Sanchez DO | 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 He [...] was discharged, he had another hospitalization at [facility] for deconditioning and difficulty with ambulation. After [...] Symbicort, but never received these medications from [facility] after he was discharged. He reports [...] GAMMA NAIL; Surgeon: Melquiades Baez DO; [place] [facility] [place] OTHER SURGICAL HISTORY CATARACT EXTRACTION - bilateral OTHER SURGICAL HISTORY 2015 PACEMAKER INSERTION TONSILLECTOMY AND ADENOIDECTOMY UPPER GASTROINTESTINAL ENDOSCOPY N/A 12/29/2019 Procedure: EGD; Surgeon: Lamont Acuña MD; [place] [facility] [place]ED[place] MEDICATIONS Home Medications Outpatient [...] of this patient. Primary Care Physician: MD iDna Nobles DO 02/06/2020 documented in this enco unter Plan of Treatment +--------+ + + + + | Date | Type | Specialty | Care Team | Description | +--------+ + + + + | 03/23/ | Preadmit | Pre-Admission | Anna Edouard, | | | 2020 | Visit | Testing | MD [address] | | | | | | [place] [address] | | | | | | [phone] | | | | | | | | +--------+ + + + + | 03/24/ | Hospital | | Anna Edouard, | Esophagitis | | 2020 | Encounter | | MD [address] | | | | | | [place] [address] | | | | | | [phone] | | | | | | | | +--------+ + + + + | 03/24/ | Surgery | | Anna Edouard, | EGD | | 2020 | | | MD [address] | | | | | | [place] [address] | | | | | | [phone] | | | | | | | | +--------+ + + + + | 03/31/ | Office | Orthopedic Surgery | Melquiades Baez | | | 2019 | Visit | | DO [address] | | | | | | [place], | | | | | | [place] [address] | | | | | | [phone] | | | | | | | | +--------+ + + + + | 04/21/ | Office | Nephrology | Isiah Jade MD | | | 2019 | Visit | | [address] | | | | | | [address] [place] | | | | | | [address] | | | | | | | | +--------+ + + + + | 05/07/ | Office | Cardiology | Charlee Oswald | | | 2019 | Visit | | [address] | | | | | | [address] | | | | | | [place] [address] | | | | | | [phone] | | | | | | | [...]
--- OUTSIDE RECORDS SUMMARY | ~2020-03-21 | XMS | Encounter Summary ---
Demographics + + + | Address | [address] | | | [place] [address] | + + + | Home Phone [...] [place] | | | | | [address] | | + + + + + | Deanna Lawson | ECON | Unknown | | + + + + + Care Team Providers + +------+ + | Care Piercing Specialist Name | Role | Phone | [...] + + | 11/10/ | Procedure | [facility] | | Cardiac pacemaker in | | 2019 | visit | CARDIOLOGY [place] | | situ (Primary Dx) | | | | [address] | | | | | | [place] | | | | | | [address] | | | | | | [phone] | | | +--------+ + + + [...] of this encounter Procedure Notes Mercedez Bains, Director Public Policy - 11/11/2019 8:00 AM PDTAssociated Order(s): DEVICE INT ERROGATION- REMOTEProcedure(s): DEVICE INTERROGATION- REMOTEPre-Procedure Diagnose(s): Prese nce of cardiac pacemaker PACEMAKER REMOTE INTERROGATION REPORT Name: Andres Guzmán PCP: Barbara Gilman MD : 1930 Primary cardiology provider: Charlee Oswald Primary electrophysiology provider: Enoch Thompson Device coastal and estuary specialist: Neura Device type: Single chamber (Ventricular) Battery Longevity: [...] in t his encounter Plan of Treatment +--------+ + + + + | Date | Type | Specialty | Care Team | Description | +--------+ + + + + | 03/23/ | Preadmit | Pre-Admission | Anna Edouard, | | 2019 | Visit | Testing | MD [address] | | | | | | [place] [address] | | | | | | [phone] | | | | | | | | +--------+ + + + + | 03/24/ | Hospital | | Anna Edouard, | Esophagitis | | 2020 | Encounter | | MD [address] | | | | | | [place] [address] | | | | | | [phone] | | | | | | | | +--------+ + + + + | 03/24/ | Surgery | | MissyAnna hendrix, | EGD | | 2019 | | | [address] | | | | | | [place] [address] | | | | | | [phone] | | | | | | | | +--------+ + + + + | 03/31/ | Office | Orthopedic Surgery | Melquiades Baez | | | 2019 | Visit | | DO [address] | | | | | | [place], | | | | | | [place] [address] | | | | | | [phone] | | | | | | | | +--------+ + + + + | 04/21/ | Office | Nephrology | Isiah Jade MD | | | 2019 | Visit | | [address] | | | | | | [address] [place] | | | | | | [address] | | | | | | | | +--------+ + + + + | 05/07/ | Office | Cardiology | Charlee Oswald | | | 2019 | Visit | | [address] | | | | | | [address] | | | | | | [place] [address] | | | | | | [phone] | | | | | | | [...] | Mercedez Jensen | LUCA | | Herson, Director Public Policy 11/12/2019 4:50 [facility] | | | INTERROGATION REPORT Name: Andres Guzmán PCP: Barbara Elkins | | | MD Mukul : 1930MRN: [id number] Primary cardiology | | | provider: Charlee Oswald Primary electrophysiology provider: Enoch | | | [place] Device coastal and estuary specialist: [employer] Device type: Single | | | chamber [...] situ - Primary | + + | Esophagitis - Primary Esophagitis, unspecified | + + | Esophagitis Esophagitis, unspecified | + + documented in this encounter"
--- OUTSIDE RECORDS SUMMARY | ~2020-03-21 | XMS | Encounter Summary ---
Demographics + + + | Address | [address] | | | [place] [address] | + + + | Home Phone [...] [place] | | | | | [address] | | + + + + + | Deanna Lawson | ECON | Unknown | | + + + + + Care Team Providers + +------+ + | Care Sizer Machine Name | Role | Phone | + [...] + + | 01/02/ | Telephone | [facility] | Isiah Jade MD | Other (Hospital F/ | | 2019 | | NEPHROLOGY [facility] | [address] [place] | ) | | | | [address] [place] | [address] [facility] [place] | | | | | [address] [place], [place] | [id number] | | | | | [address] | | | | | | [phone] | | | +--------+ + + + [...] - 01/06/2020 3:09 PM [place] [place] F/U for February 04 @ 4:00 informed her th at patient will need labs completed before appointments. She provided me with fax number to send orders [phone].Electronically signed by Kita Miranda at 0 01/06/2020 [...] Tdocumented in this encounter Plan of Treatment +--------+ + + + + | Date | Type | Specialty | Care Team | Description | +--------+ + + + + | 03/23/ | Preadmit | Pre-Admission | Anna Edouard, | | | 2020 | Visit | Testing | MD [address] | | | | | | [place] [address] | | | | | | [phone] | | | | | | | | +--------+ + + + + | 03/24/ | Hospital | | Anna Edouard, | Esophagitis | | 2020 | Encounter | | MD [address] | | | | | | [place] [address] | | | | | | [phone] | | | | | | | | +--------+ + + + + | 03/24/ | Surgery | | Anna Edouard, | EGD | | 2020 | | | MD [address] | | | | | | [place] [address] | | | | | | [phone] | | | | | | | | +--------+ + + + + | 03/31/ | Office | Orthopedic Surgery | Melquiades Baez | | | 2019 | Visit | | DO [address] | | | | | | [place], | | | | | | [place] [address] | | | | | | [phone] | | | | | | | | +--------+ + + + + | 04/21/ | Office | Nephrology | Isiah Jade MD | | | 2019 | Visit | | [address] | | | | | | [address] [place] | | | | | | [address] | | | | | | | | +--------+ + + + + | 05/07/ | Office | Cardiology | Charlee Oswald | | | 2019 | Visit | | [address] | | | | | | [address] | | | | | | [place] [address] | | | | | | [phone] | | | | | | | | +--------+ + + + + documented as of this encounter Visit Diagnoses Not on filedocumented in this encounter"
--- OUTSIDE RECORDS SUMMARY | ~2020-03-21 | XMS | Encounter Summary ---
Demographics + + + | Address | [address] | | | [place] [address] | + + + | Home Phone [...] [place] | | | | | [address] | | + + + + + | Deanna Lawson | ECON | Unknown | | + + + + + Care Team Providers + +------+ + | Care Passenger Train Braker Name | Role | Phone | + [...] + + | 08/12/ | Procedure | [facility] | | Cardiac pacemaker in | | 2019 | visit | CARDIOLOGY [place] | | situ (Primary Dx) | | | | [address] | | | | | | [place] | | | | | | [address] | | | | | | [phone] | | | +--------+ + + + [...] of this encounter Procedure Notes Mercedez Bains, Social Work Msw - 08/12/2019 8:00 AM PSTAssociated Order(s): DEVICE INT ERROGATION- REMOTEProcedure(s): DEVICE INTERROGATION- REMOTEPre-Procedure Diagnose(s): Prese nce of cardiac pacemaker PACEMAKER REMOTE INTERROGATION REPORT Name: Andres Guzmán PCP: Barbara Gilman MD : 1930 Primary cardiology provider: Charlee Oswald Primary electrophysiology provider: Enoch Thompson Device customer support specialist: [email or web address] Device type: Single chamber (Ventricular) Battery Longevity: [...] edocumented in this encounter Plan of Treatment +--------+ + + + + | Date | Type | Specialty | Care Team | Description | +--------+ + + + + | 03/23/ | Preadmit | Pre-Admission | Anna Edouard, | | | 2019 | Visit | Testing | MD [address] | | | | | | [place] [address] | | | | | | [phone] | | | | | | | | +--------+ + + + + | 03/24/ | Hospital | | Anna Edouard, | Esophagitis | | 2019 | Encounter | | MD [address] | | | | | | [place] [address] | | | | | | [phone] | | | | | | | | +--------+ + + + + | 03/24/ | Surgery | | Anna Edouard, | EGD | | 2019 | | | MD [address] | | | | | | [place] [address] | | | | | | [phone] | | | | | | | | +--------+ + + + + | 03/31/ | Office | Orthopedic Surgery | Melquiades Baez | | | 2019 | Visit | | DO [address] | | | | | | [place] | | | | | | [place] [address] | | | | | | [phone] | | | | | | | | +--------+ + + + + | 04/21/ | Office | Nephrology | Isiah Jade MD | | | 2019 | Visit | | [address] | | | | | | [address] [place] | | | | | | [address] | | | | | | | | +--------+ + + + + | 05/07/ | Office | Cardiology | DarekChalree | | | 2019 | Visit | | [address] | | | | | | [address] | | | | | | [place] [address] | | | | | | [phone] | | | | | | | [...] Mercedez Jensen | LUCA | | Herson, Social Work Msw 08/12/2019 4:09 [facility] | | INTERROGATION REPORT Name: Andres Guzmán PCP: Barbara Elkins | | | MD Mukul : 1930MRN: [id number] Primary cardiology | | | provider: Charlee Oswald Primary electrophysiology provider: Enoch | | | [place] Device customer support specialist: [email or web address] Device type: Single | | | chamber [...]
--- OUTSIDE RECORDS SUMMARY | ~2020-03-21 | XMS | Clinical Summary ---
Demographics + + + | Address | [address] | | | [place] [address] | + + + | Home Phone | | + + + | Preferred Language | Unknown | + + + | Marital Status | | + + + | Yazidism Affiliation | 1001 | + + + | Race | Unknown | + + + | Ethnic Group | Unknown | + + + Author + + + | Author | [facility] | | | and [place] | + + + | Organization | [facility] | | | [...] [place] | | | | | [address] | | + + + + + | Bekah Lawson | ECON | Unknown | | + + + + + Care Team Providers + +------+ + | Care Student Life Advisor Name | Role | Phone | + [...] automatically from request for surgery | | [id number] | + + + + + | [...] + + + + | Overview: His [id number]- VASC score is 6( HTN, age, stroke, [...] concentric LVH. 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 The | | pacing [...] Procedure | | 2019 | | | Family [employer] Consumer Sciences Teacher | | +--------+ + + + + [...] | | 2019 | on | | [employer] Consumer Sciences Teacher | (interpath-02/04/2020 | | | | | [...] | | | | | | hypertension ([facility]); | | | | | | [...] insulin | | | | | | ([facility]); Secondary | | | | | | hyperparathyroidism | | | | | | ([facility]); CKD (chronic | | | | | | kidney disease) | | | | | | stage 3, GFR 30-59 | | | | | | ml/min ([facility]); ATN | | | | | | (acute tubular | | | | | | necrosis) ([facility]) | +--------+ + + + + | 01/30/ | Telephone | Orthopedic Surgery | Melquiades Baez | Other | | 2019 | | | DO Regulo | | +--------+ + + + + | 01/29/ | Office | Nephrology | Isiah Jade MD | ATN (acute tubular | | 2019 | Visit | | | necrosis) ([facility]) | | | | | | (Primary Dx); CKD | | | | | | (chronic kidney | | | | | | disease) stage 3, | | | | | | GFR 30-59 ml/min | | | | | | ([facility]); Hypertension | | | | | [...] insulin | | | | | | ([facility]); 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 | | | | | | failure, stage 3 | | | | | | (moderate) ([facility]); | | | | | | Secondary | | | | | | hyperparathyroidism | | | | | | ([facility]); Bilateral leg | | | | | | edema; Electrolyte | | | | | | imbalance risk | +--------+ + + + + | 01/29/ | Documentati | Nephrology | Nelson | Results (01/22/20, | | 2020 | on | | Kita Sterling | 01/27/20) | | | | | [employer] | | +--------+ + + + + | 01/26/ | Documentati | Nephrology | Nelson | Cayetano (PCP progress | | 2019 | on | | Kita Sterling | note 01/23/20) | | | | | [employer] | | +--------+ + + + + [...] | orders) | | | | | [employer] | | +--------+ + + + + [...] Nephrology | Isiah Jade MD | Cayetano ([facility] F/U | 2019 | | | | ) | +--------+ + + + + | 12/28/ | Anesthesia | | Maco Wolf, | | 2019 | Event | | [employer] | | +--------+ + + + + | 12/28/ | Surgery | | Lamont Hernandez MD | VANDANA | 2019 | | | | | +--------+ + + + + | 12/21/ | Anesthesia | | Ja Hill, | | 2019 | Event | | [employer] | | +--------+ + + + + [...] + | Father | | | [place]F, [place] | | | | (Age | | [...] + + | Sister | | | [place] | | | | (Age | | [...] | | | | | [place] [address] | | | | | | [phone] | | | | | | | | +--------+ + + + + | 03/24/ | Hospital | | Shehzadi, Anna, | Esophagitis | | 2019 | Encounter | | MD [address] | | | | | | [place] [address] | | | | | | [phone] | | | | | | | | +--------+ + + + + | 03/24/ | Surgery | | Anna Edouard, | EGD | | 2019 | | | MD [address] | | | | | | [place] [address] | | | | | | [phone] | | | | | | | | +--------+ + + + + | 03/31/ | Office | Orthopedic Surgery | Melquiades Baez | | | 2019 | Visit | | DO [address] | | | | | | [address] [place] | | | | | | [place] [address] | | | | | | [phone] | | | | | | | | +--------+ + + + + | 04/21/ | Office | Nephrology | Isiah Jade MD | | 2019 | Visit | | [address] | | | | | | [address] [place], [place] | | | | | | [address] | | | | | | | | +--------+ + + + + | 05/07/ | Office | Cardiology | Charlee Oswald | | | 2019 | Visit | | [address] | | | | | | [address] | | | | | | [place] [address] | | | | | | [phone] | | | | | | | [...] | + +--------+------+ +--------+--------+--------+ | Implant Id: [id number] - | Cardia | | | | | [id number] | | Pacer-02/04/2019Implanted: | c | | | | | /[id number] | | Qty: 1 on 02/04/2019 by [...] | | 07/20/ | 3060-0 | | [id number] - SnaImplanted: | | | MEDICAL - | | 2023 | 100S | | Qty: 1 on 12/22/2019 by | | | STRY | | | /NA | | Melquiades Baez DO at [facility] | | | | | | /[id number] | | [facility] | | | | | | 6D [...] | /NA | | DO Regulo at [facility] | | | | | | /[id number] | | [facility] | | | | | | 9B [...] | /NA | | DO Regulo at [facility] | | | | | | /[id number] | | [facility] | | | | | | 99 | + +--------+------+ +--------+--------+--------+ | Trochanteric NailImplanted: | | | [place] | | 07/20/ | 3125-1 | | Qty: 1 on 12/22/2019 by | | | Medical | | 2023 | 200S | | Melquiades Baez DO at [facility] | | | | | | /NA | | [facility] | | | | | | /[id number] [...] + +--------+ + + + | *TERMED* TX UPPER GI | Routin | 12/29/2019 | [...] | | | Dr | | | [place] | +---+--------+ + +--------+ +---+ + | [...] DO Sasha 02/18/2020 1:54 PM PDT Melquiades Baze DO has created this | | | entry using GetSet Recognition software and EPIC | | | macros. The entry has been reviewed and there may still exist sound | | | alike word errors. | | | | | |Electronically signed by: Melquiades Baez DO 02/18/2020 1:54 PM PDT | | | | | | | | |Melquiades Baez DO has created this entry using GetSet | | |Recognition software and EPIC macros. [...] 1.001 - 1.030 | | | | [place], | | | | | | Urine [...] | | POC | performed at [facility];[address] | | LABORATORY | | | | [address];[place], [place] | | | | | | [address] | | | | + + + + + + + + | Specimen | + + | | + + + + + + + | Performing | Address | City/State/Zipcode | Phone Number | | Organization | | | | + + + + + | [facility] | [address] | [place] [address] | [phone] | + + + + + CBC [...] | | Absolute | performed at [facility];[address] | K/uL | LABORATORY | | | | [address];[place] | | | | | | [address] | | | | + + + + + + + + | Specimen | + + | Blood | + + + + + + + | Performing | Address | City/State/Zipcode | Phone Number | | Organization | | | | + + + + + | [facility] | [address] | [place] [address] | [phone] | + + + + + Hemoglobin [...] | | | | performed at [facility];8 | | LABORATORY | | | | [facility];[place], [place] | | | | | | [address] | | | | + + + + + + + + | Specimen | + + | Blood | + + + + + + + | Performing | Address | City/State/Zipcode | Phone Number | | Organization | | | | + + + + + | [facility] | [address] | [place] [address] | [phone] | + + + + + Surgical [...] | | technical component was performed by [facility] [address] [place] [address] | | | [place] [address] (Food And Beverage Director: Padmini Sellers MD; CLIA# | | | [id number]). Professional interpretation was performed by[facility] | | | [facility] | | | [place] [address] (Food And Beverage Director: Oscar Maynard M.D.; CLIA#: | | | [id number]). Diagnostician: Padmini Sellers | | | MDPathologistElectronically [...] | |The technical component was performed by [facility], [address] [place] [address] (Food And Beverage Director: Padmini Sellers MD; CLIA# [id number]). Professional interpretation was performed by | | |[facility], [facility], [address] [place] [id number] (Food And Beverage Director: Oscar Maynard M.D.; CLIA#: [id number]). | | | | | |Diagnostician: Padmini [...] | | Procedure Date: 12/29/2019 8:36 AMMRN: [id number] | | | of : 1930 | [...] the anesthesiologist and the | | | health type technician in the pre-procedure area in the [...] | | | with Gold probe 7 German x 5 pulses was successful with | [...] | | | | performed at [facility] | | | | | | [facility];[place], [place] | | | | | | [address] | | | | + + + + + + + + | Specimen | + + | Blood | + + + + + + + | Performing | Address | City/State/Zipcode | Phone Number | | Organization | | | | + + + + + | [facility] | [address] | [place] [address] | [phone] | + + + + + Fecal [...] | LABORATORY | | | | [facility];[address];[place] [address] | | | | + + + + + + + + | Specimen | + + | Stool - Stool | | specimen (specimen) | + + + + + + + | Performing | Address | City/State/Zipcode | Phone Number | | Organization | | | | + + + + + | [facility] | [address] | [place] [address] | [phone] | + + + + + Red [...] BANK | Testing performed at | | [facility] | | | COMMENT | [facility];[address] | | LABORATORY | | | | [address];[place] [address] | | | | + + + + + + + + | Specimen | + + | | + + + + + + + | Performing | Address | City/State/Zipcode | Phone Number | | Organization | | | | + + + + + | [facility] | [address] | [place] [address] | [phone] | + + + + + Type [...] + + + | BB BAND | [id number] | | [facility] | | | | | | LABORATORY | | + + + + + + | UNIT # | [id number] | | [facility] | | | | [...] + + + | UNIT # | [id number] | | [facility] | | | | [...] | | RESULT | performed at [facility];[address] | | LABORATORY | | | | [address];[place] | | | | | | [address] | | | | + + + + + + + + | Specimen | + + | Blood | + + + + + + + | Performing | Address | City/State/Zipcode | Phone Number | | Organization | | | | + + + + + | [facility] | [address] | [place] [address] | [phone] | + + + + + Procalcitonin [...] PROCALCITON | 0.41Comment: | <0.5 ng/mL | [facility] | | | IN | [...] | | | | | at [facility];[address] [place] [address] | | | | | | [facility];[place] [address] | | | | + + + + + + + + | Specimen | + + | Blood | + + + + + + + | Performing | Address | City/State/Zipcode | Phone Number | | Organization | | | | + + + + + | [facility] | [address] | [place] [address] | [phone] | + + + + + Vitamin D, Deficiency Screen (25-Hydroxy) (12/27/2019 5:04 AM PDT) + + + + + + | Component | Value | Ref Range | Performed | Pathologist | | | | | At | Signature | + + + + + + | Vit D, | 25.2 (L)Comment: Vitamin | 30.0 - 100.0 | [facility] | | | 25-Hydroxy | D deficiency has been | ng/mL | LABORATORY | | | | defined by the [place] | | | | | | ofMedicine [...] IOM | | | | | | ([place] of Medicine). | | | | | [...] | | | | | performed at [facility], | | | | | | [address], | | | | | | [facility] [address] | | | | + + + + + + + + | Specimen | + + | Blood | + + + + + + + | Performing | Address | City/State/Zipcode | Phone Number | | Organization | | | | + + + + + | [facility] | [address] | [place] [address] | [phone] | + + + + + Potassium (12/27/2019 12:08 AM PDT) + + + + + + | Component | Value | Ref Range | Performed | Pathologist | | | | | At | Signature | + + + + + + | K | 4.0Comment: Testing | 3.5 - 4.9 | [facility] | | | | performed at [facility];[address] | mmol/L | LABORATORY | | | | [address];[place], [place] | | | | | | [address] | | | | + + + + + + + + | Specimen | + + | Blood | + + + + + + + | Performing | Address | City/State/Zipcode | Phone Number | | Organization | | | | + + + + + | [facility] | [address] | [place] [address] | [phone] | + + + + + Complement C3 Ag (12/26/2019 12:33 PM PDT) + + + + + + | Component | Value | Ref Range | Performed | Pathologist | | | | | At | Signature | + + + + + + | C3 | 53 (L)Comment: Testing | 82 - 167 mg/dL | [facility] | | | COMPLEMENT | performed at [facility], | | LABORATORY | | | | [address], | | | | | | [place] [address] | | | | + + + + + + + + | Specimen | + + | | + + + + + + + | Performing | Address | City/State/Zipcode | Phone Number | | Organization | | | | + + + + + | [facility] | [address] | [place] [address] | [phone] | + + + + + Complement C4 Ag (12/26/2019 12:33 PM PDT) + + + + + + | Component | Value | Ref Range | Performed | Pathologist | | | | | At | Signature | + + + + + + | C4 | 15Comment: Testing | 14 - 44 mg/dL | [facility] | | | COMPLEMENT | performed at [facility], | | LABORATORY | | | | [address], | | | | | | [facility] [address] | | | | + + + + + + + + | Specimen | + + | | + + + + + + + | Performing | Address | City/State/Zipcode | Phone Number | | Organization | | | | + + + + + | [facility] | [address] | [place] [address] | [phone] | + + + + + Parathyroid Hormone, Intraoperative (12/26/2019 4:25 AM PDT) + + + + + + | Component | Value | Ref Range | Performed | Pathologist | | | | | At | Signature | + + + + + + | PTH Intact | 167.0 (H)Comment: | 8.7 - 79.6 | [facility] | | | | Testing performed at | pg/mL | LABORATORY | | | | [facility];[address] | | | | | | [place] [address] | | | | + + + + + + + + | Specimen | + + | | + + + + + + + | Performing | Address | City/State/Zipcode | Phone Number | | Organization | | | | + + + + + | [facility] | [address] | [place] [address] | [phone] | + + + + + ECHO [...] [facility] | | | | performed at [facility];[address] | | LABORATORY | | | | [address];[place], [place] | | | | | | [address] | | | | + + + + + + + + | Specimen | + + | Blood | + + + + + + + | Performing | Address | City/State/Zipcode | Phone Number | | Organization | | | | + + + + + | [facility] | [address] | [place] [address] | [phone] | + + + + + Immunoglobulin, Free Light Chain (12/25/2019 4:22 AM PDT) + + + + + + | Component | Value | Ref Range | Performed | Pathologist | | | | | At | Signature | + + + + + + | Hoot Owl Free | 121.2 (H) | 3.3 - [...] + + + + + + | Hoot Owl/Lambd | 1.25Comment: Testing | 0.26 - 1.65 | [facility] | | | a Free | performed at [facility] | | LABORATORY | | | Light Chain | [place] [address] | | | | | Ratio | [place] [address] | | | | + + + + + + + + | Specimen | + + | Blood | + + + + + + + | Performing | Address | City/State/Zipcode | Phone Number | | Organization | | | | + + + + + | [facility] | [address] | [place] [address] | [phone] | + + + + + Sedimentation Rate (12/25/2019 4:22 AM PDT) + + + + + + | Component | Value | Ref Range | Performed | Pathologist | | | | | At | Signature | + + + + + + | ESR | 6Comment: Testing | 0 - 20 mm/Hr | [facility] | | | | performed at [facility], [address] | | LABORATORY | | | | [address], | | | | | | [place] [address] | | | | + + + + + + + + | Specimen | + + | Blood | + + + + + + + | Performing | Address | City/State/Zipcode | Phone Number | | Organization | | | | + + + + + | [facility] | [address] | [place] [address] | [phone] | + + + + + Glomerular [...] [place] | | | | | | [address] | | | | + + + + + + + + | Specimen | + + | Blood | + + + + + + + | Performing | Address | City/State/Zipcode | Phone Number | | Organization | | | | + + + + + | [facility] | [address] | [place] [address] | [phone] | + + + + + Hepatitis [...] | | | | | 0.9The [facility] recommends | | | | | | that a positive HCV | | | | | | antibody resultbe | | | | | | followed up with a HCV | | | | | | Nucleic Acid | | | | | | Amplificationtest | | | | | | (225571).Testing | | | | | | performed at [facility], | | | | | | [address], | | | | | | [facility] [address] | | | | + + + + + + + + | Specimen | + + | Blood | + + + + + + + | Performing | Address | City/State/Zipcode | Phone Number | | Organization | | | | + + + + + | [facility] | [address] | [place] [address] | [phone] | + + + + + Cytoplasmic [...] | | | | | with both TX-3 and | | | | | | [...] | | | | | performed by [employer] [facility] [employer], | | | | | | [address] [facility], | | | | | | [facility] [address] | | | | + + + + + + + + | Specimen | + + | Blood | + + + + + + + | Performing | Address | City/State/Zipcode | Phone Number | | Organization | | | | + + + + + | [facility] | [address] | [place] [address] | [phone] | + + + + + Lactate Dehydrogenase (12/25/2019 4:22 AM PDT) + + + + + + | Component | Value | Ref Range | Performed | Pathologist | | | | | At | Signature | + + + + + + | LDH TOTAL | 154Comment: Testing | 120 - 246 U/L | [facility] | | | | performed at [facility];[address] | | LABORATORY | | | | [address];[place] | | | | | | [address] | | | | + + + + + + + + | Specimen | + + | Blood | + + + + + + + | Performing | Address | City/State/Zipcode | Phone Number | | Organization | | | | + + + + + | [facility] | [address] | [place] [address] | [phone] | + + + + + Protein/Creatinine Ratio, Urine (12/25/2019 12:01 AM PDT) + + + + + + | Component | Value | Ref Range | Performed | Pathologist | | | | | At | Signature | + + + + + + | PRO/CREA | 0.942Comment: Testing | | [facility] | | | RATIO,URINE | performed at [facility], [address] | | LABORATORY | | | | [address], | | | | | | [place] [address] | | | | + + + + + + + + | Specimen | + + | Urine | + + + + + + + | Performing | Address | City/State/Zipcode | Phone Number | | Organization | | | | + + + + + | [facility] | [address] | [place] [address] | [phone] | + + + + + Protein, Urine, Random (12/25/2019 12:01 AM PDT) + + + + + + | Component | Value | Ref Range | Performed | Pathologist | | | | | At | Signature | + + + + + + | Protein, | 131Comment: NO NORMAL | mg/dL | [facility] | | | Urine | RANGE ESTABLISHEDTesting | | LABORATORY | | | | performed at [facility], [address] | | | | | [address], | | | | | | [place] [address] | | | | + + + + + + + + | Specimen | + + | | + + + + + + + | Performing | Address | City/State/Zipcode | Phone Number | | Organization | | | | + + + + + | [facility] | [address] | [place] [address] | [phone] | + + + + + Creatinine, [...] | 139.0Comment: NO NORMAL | mg/dL | [facility] | | | random | RANGE ESTABLISHEDTesting | | LABORATORY | | | urine | performed at [facility], [address] | | | | | | [address] [facility], | | | | | | [place] [address] | | | | + + + + + + + + | Specimen | + + | | + + + + + + + | Performing | Address | City/State/Zipcode | Phone Number | | Organization | | | | + + + + + | [facility] | [address] | [place] [address] | [phone] | + + + + + XR [...] | | Arterial, | performed at [facility];[address] | | LABORATORY | | | POC | [address];[place], [place] | | | | | | [address] | | | | + + + + + + + + | Specimen | + + | | + + + + + + + | Performing | Address | City/State/Zipcode | Phone Number | | Organization | | | | + + + + + | [facility] | [address] | [place] [address] | [phone] | + + + + + Coronavirus (COVID-19) NAAT (12/24/2019 1:10 PM PDT) + + + + + + | Component | Value | Ref Range | Performed | Pathologist | | | | | At | Signature | + + + + + + | SARS-CoV-2, | NEGATIVEComment: Testing | NEG | ALEX | | | NAAT | performed at [facility];[address] | | LABORATORY | | | (COVID-19) | [address];[place] | | | | | | [address] | | | | + + + + + + + + | Specimen | + + | Tissue - Entire | | nasopharynx (body | | structure) | + + + + + + + | Performing | Address | City/State/Zipcode | Phone Number | | Organization | | | | + + + + + | [facility] | [address] | [place] [address] | [phone] | + + + + + Culture, [...] LABORATORY | | | | [place] [address] | | | | + + + + + + | RESULT | NO GROWTH 6 DAYS | | [facility] | | | | | | LABORATORY | | + + + + + + | RESULT | Testing performed at | | [facility] | | | | [place], [address] | | LABORATORY | | | | [place] | | | | | | [address]Khmctou: Testing | | | | | | performed at [facility], [address] | | | | | | [address], [place] | | | | | | [address] | | | | + + + + + + + + | Specimen | + + | Blood - Peripheral | | blood specimen | | (specimen) | + + + + + + + | Performing | Address | City/State/Zipcode | Phone Number | | Organization | | | | + + + + + | [facility] | [address] | [place] [address] | [phone] | + + + + + Urinalysis [...] - 1.030 | [facility] | | | [place], | | | LABORATORY | | | [...] | | | Urine | performed at [facility], [address] | | LABORATORY | | | | [address], | | | | | | [place] [address] | | | | + + + [...] | + + + + + | [facility] | [address] | [place] [address] | [phone] | + + + + + Sodium, [...] | | | urine | performed at [facility], [address] | | | | | | [address] [facility] [place], | | | | | | [place] [address] | | | | + + + [...] | + + + + + | [facility] | [address] | [place] [address] | [phone] | + + + + + Lactic Acid (12/24/2019 12:27 PM PDT) + + + + + + | Component | Value | Ref Range | Performed | Pathologist | | | | | At | Signature | + + + + + + | Lactate, | 1.6Comment: Testing | 0.4 - 2.0 | [facility] | | | Serum | performed at [facility];[address] | mmol/L | LABORATORY | | | | [address];[place] | | | | | | [address] | | | | + + + + + + + + | Specimen | + + | Blood | + + + + + + + | Performing | Address | City/State/Zipcode | Phone Number | | Organization | | | | + + + + + | [facility] | [address] | [place] [address] | [phone] | + + + + + CBC [...] | | | | performed at [facility];[address] | [address] | | | [address];[place], [place] | | | | | | [address] | | | | + + + + + + + + | Specimen | + + | Blood | + + + + + + + | Performing | Address | City/State/Zipcode | Phone Number | | Organization | | | | + + + + + | [facility] | [address] | [place] [address] | [phone] | + + + + + Phosphorus (12/23/2019 4:04 AM PDT) + + + + + + | Component | Value | Ref Range | Performed | Pathologist | | | | | At | Signature | + + + + + + | Phosphorus | 4.6Comment: Testing | 2.3 - 4.8 mg/dL | [facility] | | | | performed at [facility];[address] | | LABORATORY | | | | [address];[place], [place] | | | | | | [address] | | | | + + + + + + + + | Specimen | + + | Blood | + + + + + + + | Performing | Address | City/State/Zipcode | Phone Number | | Organization | | | | + + + + + | [facility] [facility] | [address] | [place] [address] | [phone] | + + + + + Hemoglobin (12/22/2019 9:37 PM PDT) + + + + + + | Component | Value | Ref Range | Performed | Pathologist | | | | | At | Signature | + + + + + + | Hemoglobin | 9.1 (L)Comment: Testing | 13.2 - 17.0 | ALEX | | | | performed at [facility];888 | g/dL | LABORATORY | | | | [address];[place] | | | | | | [address] | | | | + + + + + + + + | Specimen | + + | Blood | + + + + + + + | Performing | Address | City/State/Zipcode | Phone Number | | Organization | | | | + + + + + | [facility] | [address] | [place] [address] | [phone] | + + + + + Hematocrit (12/22/2019 9:37 PM PDT) + + + + + + | Component | Value | Ref Range | Performed | Pathologist | | | | | At | Signature | + + + + + + | Hematocrit | 27.4 (L)Comment: Testing | 39.0 - 50.0 % | ALEX | | | | performed at [facility] | | LABORATORY | | | | [facility], [place] | | | | | | [address] | | | | + + + + + + + + | Specimen | + + | Blood | + + + + + + + | Performing | Address | City/State/Zipcode | Phone Number | | Organization | | | | + + + + + | [facility] | [address] | [place] [address] | [phone] | + + + + + Red [...] | | POC | performed at [facility];888 | g/dL | LABORATORY | | | | [address]o;[place], [place] | | | | | | [address] | | | | + + + + + + + + | Specimen | + + | | + + + + + + + | Performing | Address | City/State/Zipcode | Phone Number | | Organization | | | | + + + + + | [facility] | [address] | [place] [address] | [phone] | + + + + + Airway (12/22/2019 9:14 AM PDT) + + + | Narrative | Performed At | + + + | Ja Sergio, MELTER SUPERVIS[employer] 12/22/2019 9:14 AM Anesthesia Airway | | [...] | | POC | performed at [facility];888 | g/dL | LABORATORY | | | | [address]o;[place], [place] | | | | | | [address] | | | | + + + + + + + + | Specimen | + + | | + + + + + + + | Performing | Address | City/State/Zipcode | Phone Number | | Organization | | | | + + + + + | [facility] | [address] | [place] [address] | [phone] | + + + + + from [...] +--------+ +---------+--------+ | MEDICARE | MEDICA | [id number] | 04/21/19 | [phone] | | Medica | | | RE | | 97-Pre | 5 | | re | | | PART A | | sent | | | | | | AND B | | | | | | + +--------+ +--------+ +---------+--------+ | INDIVIDUAL ASSURANCE | INDIVI | [id number] | | | | Indemn | | [...] Robert | al/Fam | | 1930 | [phone] | [place] | | | quique | | | 1 (Home) | [address] | + +--------+ +--------+ + + Advance Directives + + + + + | Type | Date Recorded | Patient | Explanation | | | | Tire Buster | | + + + + + | Power of | 02/18/2020 1:07 | | BEKAH MCDONNELL | | 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
--- OUTSIDE RECORDS SUMMARY | ~2020-03-21 | XMS | Encounter Summary ---
Demographics + + + | Address | [address] | | | [place] [address] | + + + | Home Phone | | + + + | Preferred Language | Unknown | + + + | Marital Status | | + + + | Amish Affiliation | 1001 | + + + [...] [place] | | | | | [address] | | + + + + + | Deanna Lawson | ECON | Unknown | | + + + + + Care Team Providers + +------+ + | Care Bridge Operator Slip Name | Role | Phone | + +------+ + | Barbara Gilman MD | PCP | | + +------+ + Reason for Visit +---------+ + | Reason | Comments | +---------+ + | Results | 01/22/20, 01/27/20 | +---------+ + Encounter Details +--------+ + + + + | Date | Type | Department | Care Team | Description | +--------+ + + + + | 01/29/ | Documentati | [facility] | Damon, | Results (01/22/20, | | 2020 | on | [facility] | 01/27/20) | | | | [address] | Learning And Development Analyst | | | | | [address] [facility] [place] | | | | | | [address] | | | | | | [phone] | | | +--------+ + + + [...] [address] | | | | | | [place] [address] | | | | | | [phone] | | | | | | | | +--------+ + + + + | 03/24/ | Hospital | | Anna Edouard, | Esophagitis | 2019 | Encounter | | MD [address] | | | | | | [place] [address] | | | | | | [phone] | | | | | | | | +--------+ + + + + | 03/24/ | Surgery | | Anna Edouard | [place] | | 2019 | | | MD [address] | | | | | | [place] [address] | | | | | | [phone] | | | | | | | | +--------+ + + + + | 03/31/ | Office | Orthopedic Surgery | Melquiades Baez | | | 2019 | Visit | | DO [address] | | | | | | [place], | | | | | | [place] [address] | | | | | | [phone] | | | | | | | | +--------+ + + + + | 04/21/ | Office | Nephrology | Isiah Jade MD | | 2019 | Visit | | [address] [facility] | | | | | | [address] [place] | | | | | | [address] | | | | | | | | +--------+ + + + + | 05/07/ | Office | Cardiology | Charlee Oswald | | | 2019 | Visit | | [address] | | | | | | [place] | | | | | | [place] [address] | | | | | | [phone] | | | | | | | [...] + + documented in this encounter Results Urinalysis (01/27/2020) + + + + + [...] 1.001 - 1.030 | | | | [place], | | | | | | Urine [...] + | Urine | + + Magnesium (01/27/2020) + +-------+ + + + | Component [...] Blood | + + Renal Function Panel (01/27/2020) + + + + + + [...] Blood | + + Renal Function Panel (01/22/2020) + + + + + + | Component | Value | Ref Range | Performed | Pathologist | | | | | At | Signature | + + + + + + | Na | 139 | 132 - 143 | | | | | | mmol/L | | | + + + + + + | K | 3.4 (A) | 3.6 - 5.1 | | | | | | mmol/L | | | + + + + + + | Cl | 103 | 95 - 112 mmol/L | | | + + + + + + | CO2 | 25 | 9 - 31 mmol/L | | | + + + + + + | Anion Gap | 14 | 7 - 21 mmol/L | | | + + + + + + | Glucose | 90 | 70 - 100 mg/dL | | | + + + + + + | BUN | 56 (A) | 6 - 23 mg/dL | | | + + + + + + | Creatinine | 1.91 (A) | 0.70 - 1.11 | | | | | | mg/dL | | | + + + + + + | Estimated | 33.0 (A) | 60.0 - 140.0 | | | | GFR | | mL/min/1.73m2 | | | + + + + + + | BUN/Creatin | 29.3 (A) | 6.0 - 28.6 | | | | ine Ratio | | | | | + + + + + + | Albumin | 3.6 | 3.5 - 5.0 g/dL | | | + + + + + + | Calcium | 8.6 | 8.5 - 10.3 | | | + + + + + + | PHOSPHORUS | 3.5 | 2.5 - 5.0 | | | + + + + + + + + | Specimen | + + | Blood | + + documented in this encounter Visit Diagnoses Not on filedocumented in this encounter"
--- OUTSIDE RECORDS SUMMARY | ~2020-03-21 | XMS | Encounter Summary ---
Demographics + + + | Address | [address] | | | [place] [address] | + + + | Home Phone [...] [place] | | | | | [address] | | + + + + + | Deanna Lawson | ECON | Unknown | | + + + + + Care Team Providers + +------+ + | Care Software Specialist Name | Role | Phone | [...] | | | | | atrial | CATERING DIRECTOR [address] | [place] [facility] | | | | | fibrillation | [address] | [address] | | | | | (HCC) | [address] | [place] | | | | | Presence of | [place] | [place] | | | | | cardiac | [address] | [address] | | | | | pacemaker | [...] + + | 06/27/ | Office | [facility] | Tatoleena Hcarlee | 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 Also worked for a [employer] company and then a [employer], but now just enjoys his leisure ti [...] : 02/04/2019: ( Dr. Thompson) : new [employer] Accolade MRI com patible model L310, serial #[id number] pacemaker. The current lead is a [employer] model 4136, serial #[id number].Mode for pacing, VVIR with dual-sensor technology programmed on. T he lower rate will be 60 and upper rate 120beats per minute. The output will be 2 volts at 0.4 milliseconds with sensitivity of 2.5 millivolts. Pacing and sensing will be bipolar Previous Implant Pacemaker/ICD: 07/30/2010, BS Altrua S601, SN: [id number]. [facility]. Last pacer interrogation: 05/07/2019: ( Dr. Thompson) : Normal device function was seen today f or this [employer] single-chamber device. The pacing threshold was [...] change, except less pul monary hypertension Echo:07/26/2017: [facility]: EF >70 percent. LV normal in [...] reviewed by me LABS: Labs: 02/08: ( [place]) CBC: WBC 6.6, hemoglobin 12.5, and hematocrit [...] BILI 0.6,ALB 3.9 Labs: 02/18/2018: ([facility] CBC: WBC 6.2, RBC 3.46, [...] 73. Thyroid: TSH 3.55 Labs: 08/23/2018: ( [facility]): CBC: WBC 6.6, RBC 2.92, [...] He had a recent clinic visit with lathe scalper operator Dr. Thompson, and pacemaker has stable d [...] . His echo will be performed at [facility] in September, and I will follow-up with [...] contain inadvertent rec ognition errors. Maximilian MCCONNELL [facility] Cardiology 06/28/2019 Apurva orozco in this encounter Plan of Treatment +--------+ + + + + | Date | Type | Specialty | Care Team | Description | +--------+ + + + + | 03/23/ | Preadmit | Pre-Admission | Anna Edouard, | | | 2019 | Visit | Testing | [address] | | | | | | [place] [address] | | | | | | [phone] | | | | | | | | +--------+ + + + + | 03/24/ | Hospital | | Anna Edouard, | Esophagitis | | 2020 | Encounter | | MD [address] | | | | | | [place] [address] | | | | | | [phone] | | | | | | | | +--------+ + + + + | 03/24/ | Surgery | | Anna Edouard, | EGD | | 2020 | | | MD [address] | | | | | | [place] [address] | | | | | | [phone] | | | | | | | | +--------+ + + + + | 03/31/ | Office | Orthopedic Surgery | Melquiades Baez | | | 2019 | Visit | | DO [address] | | | | | | [place], | | | | | | [place] [address] | | | | | | [phone] | | | | | | | | +--------+ + + + + | 04/21/ | Office | Nephrology | Isiah Jade MD | | | 2019 | Visit | | [address] | | | | | | [address] [place] | | | | | | [address] | | | | | | | | +--------+ + + + + | 05/07/ | Office | Cardiology | Charlee Oswald | | | 2019 | Visit | | [address] | | | | | | [address] | | | | | | [place] [address] | | | | | | [phone] | | | | | | | [...]
--- OUTSIDE RECORDS SUMMARY | ~2020-03-21 | XMS | Encounter Summary ---
Demographics + + + | Address | [address] | | | [place] [address] | + + + | Home Phone [...] [place] | | | | | [address] | | + + + + + | Deanna Lawson | ECON | Unknown | | + + + + + Care Team Providers + +------+ + | Care Mmi Teacher Name | Role | Phone | + +------+ + PCP | Unavailable | + +------+ + Encounter Details +--------+ + + + + | Date | Type | Department | Care Team | Description | +--------+ + + + + | 01/07/ | Orders Only | [facility] | Conversion | | | 2019 | | NEPRHOLOGY [place] | Transaction, | | | | | [address] | Provider Unknown | | | | | [address] [place], [place] | [phone] | | | | | [address] | | | | | | [phone] | | | +--------+ + + + [...] | | | | | [place] [address] | | | | | | [phone] | | | | | | | | +--------+ + + + + | 03/24/ | Hospital | | Anna Edouard, | Esophagitis | | 2020 | Encounter | | MD [address] | | | | | | [place] [address] | | | | | | [phone] | | | | | | | | +--------+ + + + + | 03/24/ | Surgery | | Anna Edouard, | VANDANA | | 2019 | | | [address] | | | | | | [place] [address] | | | | | | [phone] | | | | | | | | +--------+ + + + + | 03/31/ | Office | Orthopedic Surgery | Melquiades Baez | | | 2019 | Visit | | DO [address] | | | | | | [place], | | | | | | [place] [address] | | | | | | [phone] | | | | | | | | +--------+ + + + + | 04/21/ | Office | Nephrology | Isiah Jade MD | | | 2019 | Visit | | [address] | | | | | | [address] [place] | | | | | | [address] | | | | | | | | +--------+ + + + + | 05/07/ | Office | Cardiology | Darek Charlee | | | 2019 | Visit | | [address] | | | | | | [address] | | | | | | [place] [address] | | | | | | [phone] | | | | | | | [...] - 1.030 | EXTERNAL | | | [place], | | | LAB | | | [...]
--- OUTSIDE RECORDS SUMMARY | ~2020-03-21 | XMS | Encounter Summary ---
Demographics + + + | Address | [address] | | | [place] [address] | + + + | Home Phone | | + + + | Preferred Language | Unknown | + + + | Marital Status | | + + + | Yazidi Affiliation | 1001 | + + + | Race | Unknown | + + + | Ethnic Group | Unknown | + + + Author + + + | Author | [facility] | | | and [place] | + + + | Organization | [facility] | | [...] [place] | | | | | [address] | | + + + + + | Deanna Lawson | ECON | Unknown | | + + + + + Care Team Providers + +------+ + | Care Blacksmith Helper Name | Role | Phone | [...] + + | 12/21/ | Anesthesia | [facility] | Ja Hill, | | | 2019 | Event | [facility] | NETWORK TECHNICAL ANALYST [address] | | | | | [address]PER[address] | [place] [address] | | | | | [address] | [phone] | | | | | [place] | | | | | | [address] | | | | | | [phone] | | | +--------+ + + + [...] +----+---+ + + | | 0 | Tyler | | | | 9 | 43-degrees [...] Savana Bowden RN | | IV | cnuq-nae-iqdyoo catheter system; | | | | | [...] EVALUATION Andres Guzmán 89 y.o. male 1930 [id number] Procedure(s) NAILING IM BETSY FEMUR - GAMMA [...] by Ja Hill CRNA 12/22/2019 10:41 AM [facility] [...] EVALUATION Andres Guzmán 89 y.o. male 1930 [id number] Procedure(s): NAILING IM BETSY FEMUR - GAMMA [...] Blood transfusion concerns: None. Discussed plan with NETWORK TECHNICAL ANALYST. documented in this e ncounter Miscellaneous Notes Anesthesia Post-op Handoff - Ja Hill CRNA - 12/22/2019 10:38 AM PDTFormatting of th is note might be different from the original. ANESTHESIA HANDOFF NOTE Andres Guzmán 89 y.o. male 1930 [id number] NAILING IM BETSY FEMUR - GAMMA NAIL [...] team. Ja Hill CRNA 12/22/2019 10:38 AM [facility] Ja [facility] CRNA at 0 10:38 AM PDTdocumented in this encounter Plan of Treatment +--------+ + + + + | Date | Type | Specialty | Care Team | Description | +--------+ + + + + | 03/23/ | Preadmit | Pre-Admission | Anna Edouard, | | | 2019 | Visit | Testing | MD [address] | | | | | | [place] [address] | | | | | | [phone] | | | | | | | | +--------+ + + + + | 03/24/ | Hospital | | Anna Edouard, | Esophagitis | | 2020 | Encounter | | MD [address] | | | | | | [place] [address] | | | | | | [phone] | | | | | | | | +--------+ + + + + | 03/24/ | Surgery | | Anna Edouard, | EGD | | 2020 | | | MD [address] | | | | | | [place] [address] | | | | | | [phone] | | | | | | | | +--------+ + + + + | 03/31/ | Office | Orthopedic Surgery | Melquiades Baez | | | 2019 | Visit | | [address] | | | | | | [place], | | | | | | [place] [address] | | | | | | [phone] | | | | | | | | +--------+ + + + + | 04/21/ | Office | Nephrology | Isiah Jade MD | | | 2019 | Visit | | [address] | | | | | | [address] [place] | | | | | | [address] | | | | | | | | +--------+ + + + + | 05/07/ | Office | Cardiology | Charlee Oswald | | | 2019 | Visit | | [address] | | | | | | [address] | | | | | | [place] [address] | | | | | | [phone] | | | | | | | [...] easy External maneuver: head lift Successful technique: Soot | | | Laryngoscope blade size: 2 [...] | +---+---+ + +-------+ +--------+---+---+ | glycopyrrolate (ROBINUL) | Given | 12/22/19 | 0.4 mg [...]
--- OUTSIDE RECORDS SUMMARY | ~2020-03-21 | XMS | Encounter Summary ---
Demographics + + + | Address | [address] | | | [place] [address] | + + + | Home Phone [...] [place] | | | | | [address] | | + + + + + | Deanna Lawson | ECON | Unknown | | + + + + + Care Team Providers + +------+ + | Care Laboratory Engineer Name | Role | Phone | + +------+ + | Barbara Gilman MD | PCP | | + +------+ + Encounter Details +--------+ + + + + | Date | Type | Department | Care Team | Description | +--------+ + + + + | 04/01/ | Orders Only | [facility] | Tristan Rajput, | | | 2018 | | NEPHROLOGY [facility] | HAND TRIMMER [address] | | | | | [address] [place] | [address] | | | | | [address] [facility] [place] | [place] | | | | | [address] | [address] | | | | | [phone] | [phone] | | | | | | | [...] [address] | | | | | | [place] [address] | | | | | | [phone] | | | | | | | | +--------+ + + + + | 03/24/ | Hospital | | Anna Edouard, | Esophagitis | | 2019 | Encounter | | MD [address] | | | | | | [place] [address] | | | | | | [phone] | | | | | | | | +--------+ + + + + | 03/24/ | Surgery | | Anna Edouard | GRUPOD | | 2019 | | | MD [address] | | | | | | [place] [address] | | | | | | [phone] | | | | | | | | +--------+ + + + + | 03/31/ | Office | Orthopedic Surgery | Melquiades Baez | | | 2019 | Visit | | DO [address] | | | | | | [place], | | | | | | [place] [address] | | | | | | [phone] | | | | | | | | +--------+ + + + + | 04/21/ | Office | Nephrology | Isiah Jade MD | | 2019 | Visit | | [address] [facility] | | | | | | [address] [place], [place] | | | | | | [address] | | | | | | | | +--------+ + + + + | 05/07/ | Office | Cardiology | Darek Charlee | | | 2020 | Visit | | [address] | | | | | | [address] | | | | | | [place] [address] | | | | | | [phone] | | | | | | | [...] | | | LAB | | | [place] | | | | | + + [...]
--- OUTSIDE RECORDS SUMMARY | ~2020-03-21 | XMS | Encounter Summary ---
Demographics + + + | Address | [address] | | | [place] [address] | + + + | Home Phone [...] [place] | | | | | [address] | | + + + + + | Deanna Lawson | ECON | Unknown | | + + + + + Care Team Providers + +------+ + | Care College President Name | Role | Phone | + [...] [address] | | | | | [place], [place] | [place] [address] | | | | | [address] | [phone] | | | | | [phone] | | | +--------+ + + + [...] | | | | | [place] [address] | | | | | | [phone] | | | | | | | | +--------+ + + + + | 03/24/ | Hospital | | Anna Edouard, | Esophagitis | | 2020 | Encounter | | MD [address] | | | | | | [place] [address] | | | | | | [phone] | | | | | | | | +--------+ + + + + | 03/24/ | Surgery | | Anna Edouard | EGD | | 2019 | | | [address] | | | | | | [place] [address] | | | | | | [phone] | | | | | | | | +--------+ + + + + | 03/31/ | Office | Orthopedic Surgery | Melquiades Baez | | | 2019 | Visit | | DO [address] | | | | | | [place], | | | | | | [place] [address] | | | | | | [phone] | | | | | | | | +--------+ + + + + | 04/21/ | Office | Nephrology | Isiah Jade MD | | 2019 | Visit | | [address] [facility] | | | | | | [address] [place] | | | | | | [address] | | | | | | | | +--------+ + + + + | 05/07/ | Office | Cardiology | Charlee Oswald | | | 2019 | Visit | | [address] | | | | | | [address] | | | | | | [place] [address] | | | | | | [phone] | | | | | | | [...] 1.67 cm | | | [place] Dec Wells: 1.62 m/s2 AR Dec Time: 2122.29 ms [...] RV s': | | | 0.10 m/s Platform Beater: PARTHA Authenticated by: Vikki Godoy | | | Report Date/Time: 09-27-2018 20:0:35 | | + + + + + | Procedure Note | + + | Leonides Bullock Conversion - 04/11/2019 12:50 PM PDT Patient Name: Francisco Guzmán of | | : 1930 Performing Physician: Vikki | | [facility] Heart INDICATIONS------ | | -----afib, pacemaker, dilated aortic [...] | | cmLVPWd: 0.92 cmLVOT Area: 4.11 cn0ARTB Diam: 2.29 cm%FS: 21.62 %EF(Teich): | | [...] mlLAESV Index (A-L): 58.76 ml/m2LAAs A2C: 25.86 va6LDZEL A-L A2C: 90.57 | | mlLALs A2C: 6.26 cmLAAs A4C: 29.36 rv7OXLDZ A-L A4C: 115.78 mlLALs A4C: 6.32 | | cmRAAs: 26.92 rt0KNPXZ A-L: 103.75 mlRAESV MOD: 96.91 mlRALs: 5.92 cmTAPSE: | | 1.67 cmAR Dec Wells: 1.62 m/s2AR Dec Time: 2121. msAR maxP.71 mmHgAR PHT: | | 615.46 msAR Vmax: 3.45 m/Armen maxP.22 mmHgAV meanP.30 mmHgAV Vmax: 1.24 | | m/Armen Vmean: 0.84 m/Armen VTI: 25.35 cmAVA Vmax: 2.51 cm2AVA (VTI): 2.84 dy2JTIL | | (Vmax): 0.00 cm2/m2AVAI (VTI): 0.00 [...] mmHgTR Vmax: 3.74 m/sRV s': 0.10 m/s Platform Beater: | | DBSAuthenticated by: Mershed AlsamaraReport Date/Time: 09-27-2018 20:0:35 IMPRESSION: 1. | | [...] | |TAPSE: 1.67 cm | |AR Dec Wells: 1.62 m/s2 | |AR Dec Time: 2122.29 [...] |RV s': 0.10 m/s | | | |Platform Beater: DBS | |Authenticated by: Vikki Bobby | |Report Date/Time: 09-27-2018 20:0:35 | | [...]
--- OUTSIDE RECORDS SUMMARY | ~2020-03-21 | XMS | Encounter Summary ---
Demographics + + + | Address | [address] | | | [place] [address] | + + + | Home Phone [...] [place] | | | | | [address] | | + + + + + | Deanna Lawson | ECON | Unknown | | + + + + + Care Team Providers + +------+ + | Care Photolithographic Stripper Name | Role | Phone | + +------+ + | Barbara Gilman MD | PCP | | + +------+ + Encounter Details +--------+---------+ + + + | Date | Type | Department | Care Team | Description | +--------+---------+ + + + | 05/07/ | Office | [facility] | Enoch Thompson, | Cardiac pacemaker in | | 2019 | Visit | CARDIOLOGY [place] | [address] | situ; Permanent | | | | [address] | [place], | atrial fibrillation | | | | [place], [place] | [place] [address] | ([facility]) | | | | [address] | [phone] | | | | | [phone] | | | +--------+---------+ + + + [...] pacemaker in situ Overview He has a [employer] Altrua single-chamber RV pacemaker that was [...] function was seen tofrancesca marcus for this [employer] single-chamber device. The pacing threshold was [...] mild concentric LVH. He has a single-chamber [employer] ventricular pacemaker that is nearing elective [...] mild concentric LVH. He has a single-chamber [employer] ventricular pacemaker that is nearing elective replacement indicator status. He has been pacing the right ventricle 99% o f the time. Anticoagulated with apixaban. He has only been taking 2.5 mg twice per day, because of cierra al dysfunction and age. The chads 2 vascular score is 4. 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 Priority: High Note Last Updated: 05/07/2019 He has a [employer] single-chamber RV pacemaker that was [...] function was seen tofrancesca marcus for this [employer] single-chamber device. The pacing threshold was 0.6 [...] Type 2 diabetes mellitus without complication ([facility]) 06/04/2015 Reading: Continue current therapy. I [...] notes on file Myrtle Esteves Me dical Director Of Officiating - 05/07/2019 11:30 AM Sheela COOPER Note- [...] | | | | | [place] [address] | | | | | | [phone] | | | | | | | | +--------+ + + + + | 03/24/ | Hospital | | Anna Edouard, | Esophagitis | | 2020 | Encounter | | [address] | | | | | | [place] [address] | | | | | | [phone] | | | | | | | | +--------+ + + + + | 03/24/ | Surgery | | Anna Edouard, | EGD | | 2019 | | | MD [address] | | | | | | [place] [address] | | | | | | [phone] | | | | | | | | +--------+ + + + + | 03/31/ | Office | Orthopedic Surgery | Melquiades Baez | | | 2019 | Visit | | DO [address] | | | | | | [place] | | | | | | [place] [address] | | | | | | [phone] | | | | | | | | +--------+ + + + + | 04/21/ | Office | Nephrology | Isiah Jade MD | | | 2019 | Visit | | [address] | | | | | | [address] | | | | | | [address] | | | | | | | | +--------+ + + + + | 05/07/ | Office | Cardiology | Charlee Oswald | | | 2019 | Visit | | [address] | | | | | | [address] | | | | | | [facility] [address] | | | | | | [phone] | | | | | | | [...]
--- OUTSIDE RECORDS SUMMARY | ~2020-03-21 | XMS | Encounter Summary ---
Demographics + + + | Address | [address] | | | [place] [address] | + + + | Home Phone | | + + + | Preferred Language | Unknown | + + + | Marital Status | | + + + | Advent Affiliation | 1001 | + + + [...] [place] | | | | | [address] | | + + + + + | Deanna Lawson | ECON | Unknown | | + + + + + Care Team Providers + +------+ + | Care Nurse Behavioral Health Care Name | Role | Phone | + +------+ + | Barbara Gilman MD | PCP | | + +------+ + Encounter Details +--------+ + + + + | Date | Type | Department | Care Team | Description | +--------+ + + + + | 01/03/ | Orders Only | [facility] | Lamont Acuña MD | | | 2020 | | GASTROENTEROLOGY | [address] | | | | | [address] | [place], [place] | | | | | [place], [place] | [address] | | | | | [address] | [phone] | | | | | [phone] | | | +--------+ + + + [...] | | | | | | [place] [address] | | | | | | [phone] | | | | | | | | +--------+ + + + + | 03/24/ | Hospital | | Anna Edouard, | Esophagitis | | 2019 | Encounter | | MD [address] | | | | | | [place] [address] | | | | | | [phone] | | | | | | | | +--------+ + + + + | 03/24/ | Surgery | | Anna Edouard, | GRUPOD | | 2019 | | | [address] | | | | | | [place] [address] | | | | | | [phone] | | | | | | | | +--------+ + + + + | 03/31/ | Office | Orthopedic Surgery | Melquiades Baez | | | 2019 | Visit | | DO [address] | | | | | | [place], | | | | | | [place] [address] | | | | | | [phone] | | | | | | | | +--------+ + + + + | 04/21/ | Office | Nephrology | Isiah Jade MD | | | 2019 | Visit | | [address] [facility] [address] | | | | | | [address] [place] | | | | | | [address] | | | | | | | | +--------+ + + + + | 05/07/ | Office | Cardiology | Charlee Oswald | | | 2019 | Visit | | [address] | | | | | | [place] | | | | | | [place] [address] | | | | | | [phone] | | | | | | | | +--------+ + + + + documented as of this encounter Visit Diagnoses Not on filedocumented in this encounter"
--- OUTSIDE RECORDS SUMMARY | ~2020-03-21 | XMS | Encounter Summary ---
Demographics + + + | Address | [address] | | | [place] [address] | + + + | Home Phone [...] [place] | | | | | [address] | | + + + + + | Deanna Lawson | ECON | Unknown | | + + + + + Care Team Providers + +------+ + | Care General Teller Name | Role | Phone | + +------+ + | Barbara Gilman MD | PCP | | + +------+ + Reason for Visit + +--------+ + | Reason | Onset | Comments | | | Date | | + +--------+ + | Screening For | 03/16/ | | | Communicable Disease | 2020 | | + +--------+ + Encounter Details +--------+ + + + + | Date | Type | Department | Care Team | Description | +--------+ + + + + | 03/16/ | Telephone | [facility] | Melquiades Baez | Screening For | | 2019 | | ORTHO SPORTS | DO [address] | Communicable Disease | | | | MEDICINE [facility]LESTE | [facility] | | | | | [address] [facility] | [place] [address] | | | | | [place], [place] | [phone] | | | | | [address] | | | | | | [phone] | | | +--------+ + + + [...] this encounter Miscellaneous Notes Telephone Encounter - Meghana Garg, Audio/Visual Manager - 03/16/2020 9:57 AM PDT Proactive screening for upcoming office visit to help ensure the clinic environment remains a safe place to receive care. 1. Patient (or visitor as allowed per policy) reports the following symptoms and/or exposur e on the epidemic risk screen: ? Fever greater than 100.4 F?: no ? New onset (within the last 14 days) cough?: no ? New onset (within the last 14 days) shortness of breath?: no ? New onset (within the last 14 days) loss of taste or smell?: no ? New onset (within the last 14 days) sore throat?: no ? New onset (within the last 14 days) chills: no ? New onset (within the last 14 days) muscle aches: no ? Close contact with someone who has been diagnosed with COVID-19?: no The patient reported no symptoms or exposure and proceeded with proactive screening process . 2. Have you (or visitor as allowed per policy) with been tested for COVID-19?: No. Okay t o see patient in clinic per scheduling guidelines, proceeded to question #3 If YES, answer the following questions: ? Were you tested for COVID-19 for pre-procedure and have no symptoms? NO (If YES, proceed to question 3) ? Has it been ten days since your symptoms first started?: NO ? Have you been fever free for three days without taking fever reducing medications?: NO ? Have you experienced at least three days of improvement in your respiratory symptoms (e.g . cough, shortness of breath)?:NO ? Can patient be seen in clinic?: . 3. Does the patient have MyChart Access?: Yes. Encouraged use of the E-Check In feature. Please be aware that you will be asked these same questions when you arrive at the clinic. If you have any changes in your symptoms between now and your visit, please call us so we c an get you scheduled for an alternative visit before you arrive at the clinic. Following [facility] guidelines, masking is required when you receive care at a [facility] site. If you are unable to wear a mask for medical reasons, alternative visit opti ons are available. Hand washing is coffman to keeping our clinic a safe place to receive care. While you are in r clinics you will be asked to perform hand washing at different intervals throughout your v isit. While you are in the clinic 6ft distancing is required, please ensure you look for the 6ft floor markers and adhere to distancing. Visitor restrictions remain in place following CDC guidance. Only minimal exceptions will be allowed. If you arrive with a visitor they may be asked to wait in the car during your v isit. We reserve the right to deny entrance to patients or visitors who refuse to comply with the above safety precautions. documented in this encounter Plan of Treatment +--------+ + + + + | Date | Type | Specialty | Care Team | Description | +--------+ + + + + | 03/23/ | Preadmit | Pre-Admission | Anna Edouard, | | | 2020 | Visit | Testing | MD [address] | | | | | | [place] [address] | | | | | | [phone] | | | | | | | | +--------+ + + + + | 03/24/ | Hospital | | Anna Edouard, | Esophagitis | | 2020 | Encounter | | MD [address] | | | | | | [place] [address] | | | | | | [phone] | | | | | | | | +--------+ + + + + | 03/24/ | Surgery | | Anna Edouard, | EGD | | 2020 | | | MD [address] | | | | | | [place] [address] | | | | | | [phone] | | | | | | | | +--------+ + + + + | 03/31/ | Office | Orthopedic Surgery | Melquiades Baez | | | 2019 | Visit | | DO [address] | | | | | | [place] | | | | | | [place] [address] | | | | | | [phone] | | | | | | | | +--------+ + + + + | 04/21/ | Office | Nephrology | Isiah Jade MD | | | 2019 | Visit | | [address] | | | | | | [address] [place] | | | | | | [address] | | | | | | | | +--------+ + + + + | 05/07/ | Office | Cardiology | Charlee Oswald | | | 2019 | Visit | | [address] | | | | | | [address] [address] | | | | | | [place] [address] | | | | | | [phone] | | | | | | | | +--------+ + + + + documented as of this encounter Visit Diagnoses Not on filedocumented in this encounter"
--- OUTSIDE RECORDS SUMMARY | ~2020-03-21 | XMS | Encounter Summary ---
Demographics + + + | Address | [address] | | | [place] [address] | + + + | Home Phone [...] [place] | | | | | [address] | | + + + + + | Deanna Lawson | ECON | Unknown | | + + + + + Care Team Providers + +------+ + | Care Precipitator Operator Name | Role | Phone | [...] + + | 01/30/ | Telephone | [facility] | Melquiades Baez | Other | | 2019 | | ORTHO SPORTS | [address] | | | | | MEDICINE [place] | [facility] | | | | | [facility] | [place] [address] | | | | | [place], [place] | [phone] | | | | | [address] | | | | | | [phone] | | | +--------+ + + + [...] [address] | | | | | | [place] [address] | | | | | | [phone] | | | | | | | | +--------+ + + + + | 03/24/ | Hospital | | Anna Edouard, | Esophagitis | | 2020 | Encounter | | MD [address] | | | | | | [place] [address] | | | | | | [phone] | | | | | | | | +--------+ + + + + | 03/24/ | Surgery | | Anna Edouard, | EGD | | 2019 | | | MD [address] | | | | | | [place] [address] | | | | | | [phone] | | | | | | | | +--------+ + + + + | 03/31/ | Office | Orthopedic Surgery | Melquiades Baez | | | 2019 | Visit | | [address] | | | | | | [place], | | | | | | [place] [address] | | | | | | [phone] | | | | | | | | +--------+ + + + + | 04/21/ | Office | Nephrology | Isiah Jade MD | | | 2019 | Visit | | [address] | | | | | | [address] | | | | | | [address] | | | | | | | | +--------+ + + + + | 05/07/ | Office | Cardiology | Charlee Oswald | | | 2019 | Visit | | [address] | | | | | | [address] | | | | | | [place] [address] | | | | | | [phone] | | | | | | | | +--------+ + + + + documented as of this encounter Visit Diagnoses Not on filedocumented in this encounter"
--- OUTSIDE RECORDS SUMMARY | ~2020-03-21 | XMS | Encounter Summary ---
Demographics + + + | Address | [address] | | | [place] [address] | + + + | Home Phone [...] [place] | | | | | [address] | | + + + + + | Deanna Lawson | ECON | Unknown | | + + + + + Care Team Providers + +------+ + | Care Lace Mender Name | Role | Phone | + +------+ + | aBrbara Gilman MD | PCP | | + [...] + + | 12/28/ | Anesthesia | [facility] | Maco Wolf, | | | 2019 | Event | [facility] | [facility] [address] | | | | | INTRA [address] | [place] [address] | | | | | [address] | [phone] | | | | | [address] | | | | | | [phone] | | | +--------+ + + + [...] | Salma, | | | | | Showroom Sales Assistant | | +--------+ + + + | [...] | Leatha Mayer, | | IV | [id number] catheter system; | | RN | | [...] Andres Jones Ramirez 89 y.o. male 1930 [id number] Procedure(s) EGD (N/A Mouth) Cooperates? Yes Mental [...] by Maco Wolf CRNA 12/29/2019 9:48 AM [facility] Mac[facility] CRNA at 0 9:48 AM PDTAnesthesia Preprocedure Evaluation - Maco Wolf CRNA - 12/29/2019 8:59 A M PDT ANESTHESIA PREANESTHESIA EVALUATION Andres Guzmán 89 y.o. male 1930 [id number] Procedure(s): EGD (N/A Mouth) Medical,anesthesia, drug, allergy [...] and agrees to proceed. Discussed plan with PLUM P[employer]ER. Electronically Signed by: Maco Wolf CRNA ESig date/time: 12/29/2019 8:59 AM documented in this e ncounter Miscellaneous Notes Anesthesia Post-op Handoff - Maco Wolf CRNA - 12/29/2019 9:46 AM PDTFormatting of th is note might be different from the original. ANESTHESIA HANDOFF NOTE Andres Jones Ramirez 89 y.o. male 1930 [id number] EGD (N/A Mouth) HANDOFF NOTE Handoff Protocol [...] team. Maco Wolf CRNA 12/29/2019 9:46 AM [facility] Maco Wolf CRNA at [...] | | | | | [place] [address] | | | | | | [phone] | | | | | | | | +--------+ + + + + | 03/24/ | Hospital | | Anna Edouard, | Esophagitis | | 2020 | Encounter | | [address] | | | | | | [place] [address] | | | | | | [phone] | | | | | | | | +--------+ + + + + | 03/24/ | Surgery | | Anna Edouard, | EGD | | 2020 | | | [address] | | | | | | [place] [address] | | | | | | [phone] | | | | | | | | +--------+ + + + + | 03/31/ | Office | Orthopedic Surgery | Sasha Melquiades | | | 2019 | Visit | | [address] | | | | | | [address] | | | | | | [place] [address] | | | | | | [phone] | | | | | | | | +--------+ + + + + | 04/21/ | Office | Nephrology | Isiah Jade MD | | | 2019 | Visit | | [address] | | | | | | [address] | | | | | | [address] | | | | | | | | +--------+ + + + + | 05/07/ | Office | Cardiology | Charlee Oswald | | | 2019 | Visit | | [address] | | | | | | [address] | | | | | | [place] [address] | | | | | | [phone] | | | | | | | [...]
--- OUTSIDE RECORDS SUMMARY | ~2020-03-21 | XMS | Encounter Summary ---
Demographics + + + | Address | [address] | | | [place] [address] | + + + | Home Phone [...] [place] | | | | | [address] | | + + + + + | Deanna Lawson | ECON | Unknown | | + + + + + Care Team Providers + +------+ + | Care General Accounting Manager Name | Role | Phone | [...] Provider Unknown | | | | | [place], [place] | | | | | | [address] | (Fax) | | | | | [phone] | | | +--------+ + + + [...] [address] | | | | | | [place] [address] | | | | | | [phone] | | | | | | | | +--------+ + + + + | 03/24/ | Hospital | | Anna Edouard, | Esophagitis | | 2019 | Encounter | | [address] | | | | | | [place] [address] | | | | | | [phone] | | | | | | | | +--------+ + + + + | 03/24/ | Surgery | | Anna Edouard | EGD | | 2019 | | | [address] | | | | | | [place] [address] | | | | | | [phone] | | | | | | | | +--------+ + + + + | 03/31/ | Office | Orthopedic Surgery | Melquiades Baez | | | 2019 | Visit | | [address] | | | | | | [place], | | | | | | [place] [address] | | | | | | [phone] | | | | | | | | +--------+ + + + + | 04/21/ | Office | Nephrology | Isiah Jade MD | | | 2019 | Visit | | [address] [facility] | | | | | | [address] | | | | | | [address] | | | | | | | | +--------+ + + + + | 05/07/ | Office | Cardiology | Charlee Oswald | | | 2019 | Visit | | [address] | | | | | | [address] | | | | | | [place] [address] | | | | | | [phone] | | | | | | | [...]
--- OUTSIDE RECORDS SUMMARY | ~2020-03-21 | XMS | Encounter Summary ---
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 | [address] | | | | | INTRA OP [address] | [place] | | | | | [address] [place] | [address] | | | | | [address] | [phone] | | | | | [phone] | | | +--------+---------+ + + + [...] was on board. No immediate indication for FERRY OPERATOR. Patient was also seen by physical therapy and occupational therapy and was recommended for discharging to [facility]. However patient will b e going to [facility] at this time. Patient also had [...] CVA tenderness, no spinal tenderness Disposition: [facility] Condition: Fair No discharge procedures on file. [...] BUNCREARATIO 30 01/01/2020 PTH 72.57 (A) 04/01/2019 [id number] 25.2 (L) 12/27/2019 CALCIUM 8.6 01/01/2020 PHOS [...] been following up with ENEDINA mena in [place]. He has unrecovered acute kidney injury and a higher baseline creatinine. At this time there is no clinical uremia, refractory volume overload, refractory acidosis, refractory hyperkalemia and no urgent indication of starting FERRY OPERATOR. Neither is there an indication for [...] Incentive spirometry. Transfuse Prn. No indication for FERRY OPERATOR for now. Await renal recovery. On [...] was completed later after rounds. Dictation software, Red Crow, was used which may contain error for [...] but not limited to potential need for FERRY OPERATOR . This is a patient with [...] is waiting downstairs. Deanna Doe RN, CMSRN, [facility] Inpatient Wound Ostomy Care [phone] 01/01/2020 11:46 AM Chai, Savana Irving RN [...] BUNCREARATIO 25 12/31/2019 PTH 72.57 (A) 04/01/2019 [id number] 25.2 (L) 12/27/2019 CALCIUM 8.5 12/31/2019 PHOS [...] been following up with ENEDINA mena in [place]. He has unrecovered acute kidney injury and a higher baseline creatinine. At this time there is no clinical uremia, refractory volume overload, refractory acidosis, refractory hyperkalemia and no urgent indication of starting FERRY OPERATOR. Neither is there an indication for [...] Incentive spirometry. Transfuse Prn. No indication for FERRY OPERATOR for now. Await renal recovery. I [...] was completed later after rounds. Dictation software, Red Crow, was used which may contain error for [...] but not limited to potential need for FERRY OPERATOR . This is a patient with [...] Regino Greene MD 12/31/2019 11:38 AM Marycarmen Prak ARNP - 12/31/2019 10:58 AM PDT . [...] injuries: see wound RN note for treatment. Replaced By [facility] ed, continue wound care at swing bed, send with extra dressing supplies. *Metabolic bone disorder: elevated PTH and phosphorus. Treatment per book cutter (see thei r note). Subjective No chest [...] who was admitted as a transfer from [facility] due t o a mechanical [...] finding placement and he was accepted by [facility] in [place], [place] for rehabilitation purposes. Hospital stay was [...] Medications Current Facilty-Administered PRN Medications Ordered in [facility] Medication Dose Route Frequency Provider Last [...] but remains week, he is accepted at [facility] in [place] with discharge plans tomorrow for rehabilit ation if remains stable. Will continue PT/OT, wound care services and monitor progress. Acute Kidney Injury on Chronic Kidney Disease Stage 3: This was likely due to ATN precipit ated by dehydration & blood loss, Clinically stable and creatinine is down to 3.0 range, [facility] [place] hrology service on board and Dr. Beckford [...] plans to Swing Bed Program in [facility] tomorrow. DVT prophylaxis with SCD's only due to risks of bleeding. Discharge plans tomorrow to [facility] in [place], [place] for rehabi litation. Called his daughter Ms. Huerta and left a message with updated information at phone number [phone]. Jerry Chino MD 12/30/2019 turgill, DALILA Keys - 12/30/2019 12:35 PM PDTFormatting of this note might be different from the [facility] Service: Gastroenterology Consult Progress Note [...] Infusions dextrose 10% pantoprazole 8 mg/hr (12/30/19 0902) PRN Medications acetaminophen OR acetaminophen OR acetaminophen, [...] motor deficits. PSYCHIATRIC: Appropriate, affect appears normal [facility] Gastroenterology Patient Name: Andres Guzmán Procedure Date: [...] physician, the nurse, the anesthesiologist and the telecasting technician in the pre-procedure area in the [...] successful. Thermal coagulation with Gold probe 7 Bangladeshi x 5 pulses was successful with hemostasis. [...] 12/29/2019 8:36 AM Number of Addenda: 0 [facility] DATA Lab Results Component Value Date WBC [...] with any questions. Florina Cantu PA-C [facility] Gastroenterology 12/30/2019 Associated attestation - Lamont Hernandez MD - 12/31/2019 2:17 PM [id number] male with GI bleeding due to duodenal ulcer with visible vessel. The ulcer and visible vessel were tr eated with injection and gold probe thermal coagulation. The patient was seen and examined by me personally. The case was discussed with the physician's respiratory therapy assistant and I agree with the assessment and p tim as outlined in the note. Continue PPI IV infusion for total of 72 hours and then when patient is discharged he must be on twice daily PPI for 8 weeks. Resume Eliquis in 1 week. Lamont Hernandez MD Gastroenterology staffWhitefishMarycarmen, [facility] - 12/30/2019 11:05 AM PDTFormatting of [...] BUNCREARATIO 23 12/30/2019 PTH 72.57 (A) 04/01/2019 [id number] 25.2 (L) 12/27/2019 CALCIUM 8.6 12/30/2019 PHOS [...] been following up with ENEDINA mena in [place]. That had improved with nonoliguric state but now seems to have leveled off at around 3 and this may be reflection of unrecovered acute kidney injury and a higher baseline creatinine. At this time there is no clinical uremia, refractory volume overload, refractory acidosis, refractory hyperkalemia and no urgent indication of starting FERRY OPERATOR. Neither is there an indication for [...] Incentive spirometry. Transfuse Prn. No indication for FERRY OPERATOR for now. Await renal recovery. I [...] was completed later after rounds. Dictation software, Red Crow, was used which may contain error for [...] but not limited to potential need for FERRY OPERATOR . This is a patient with [...] BUNCREARATIO 30 12/29/2019 PTH 72.57 (A) 04/01/2019 [id number] 25.2 (L) 12/27/2019 CALCIUM 8.7 12/29/2019 PHOS [...] been following up with ENEDINA mena in [place]. That seems to be improving with nonoliguric state and small reduction in creatinine. At this time there is no clinical uremia, refractory volume overload, refractory acidosis, refractory hyperkalemia and no urgent indication of starting FERRY OPERATOR. Neither is there an indication for [...] Incentive spirometry. Transfuse Prn. No indication for FERRY OPERATOR for now. Await renal recovery. I [...] of care was discussed with Dr. Chino. Aelxander Beckford MD 12/29/2019 Portions of my previous notes have been carried over for continuity of chart review/care. He was seen earlier in the day and charting was completed later after rounds. Dictation software, Red Crow, was used which may contain error for [...] but not limited to potential need for FERRY OPERATOR . acetaminophen 1,000 mg Oral 3 [...] who was admitted as a transfer from [facility] due t o a mechanical [...] and he was accepted by [facility] Swing bed [facility] in [place], [place] for rehabilitation purposes. Hospita l stay [...] by [facility] in [place], [place] with discharge plans early next weeks [...] another 1 to 2 to SNF in [place], [place] if remains stable and improve d. Called his daughter Ms. Huerta and updated her about plans at phone number [phone]. Jerry Chino MD 12/29/2019 Norma Sarabia RN [...] BUNCREARATIO 28 12/28/2019 PTH 72.57 (A) 04/01/2019 [id number] 25.2 (L) 12/27/2019 CALCIUM 8.5 12/28/2019 PHOS [...] been following up with ENEDINA mena in [place]. That seems to be improving with nonoliguric state and small reduction in creatinine. At this time there is no clinical uremia, refractory volume overload, refractory acidosis, refractory hyperkalemia and no urgent indication of starting FERRY OPERATOR. Neither is there an indication for [...] Incentive spirometry. Transfuse Prn. No indication for FERRY OPERATOR for now. Await renal recovery. I [...] was completed later after rounds. Dictation software, Red Crow, was used which may contain error for [...] but not limited to potential need for FERRY OPERATOR . acetaminophen 1,000 mg Oral 3 [...] DALILA Grant - 12/28/2019 10:49 AM PDT [facility] Service: Orthopedic Surgery Progress Note Hospital Day: [...] DALILA Peralta has created this entry using [employer] e and [employer] macros. The entry has been reviewed and [...] who was admitted as a transfer from [facility] due t o a mechanical [...] and he was accepted by [facility] Swing bed [facility] in [place], [place] for rehabilitation purposes. Hospita l stay [...] Medications Current Facilty-Administered PRN Medications Ordered in [facility] Medication Dose Route Frequency Provider Last [...] making slow progress, he is accepted by [facility] in [place], [place] with discharge plans possib ly early [...] 1 to 2 to a SNF in [place], [place] when renal functions are st able and cleared by Nephrology services. Also called his daughter Ms. Huerta and updated her a bout plans at phone number [phone]. Jerry Chino MD 12/28/2019 hazal Robbins COTA [...] been following up with ENEDINA mena in [place]. That seems to be improving with nonoliguric state and small reduction in creatinine. At this time there is no clinical uremia, refractory volume overload, refractory acidosis, refractory hyperkalemia and no urgent indication of starting FERRY OPERATOR. Neither is there an indication for [...] Incentive spirometry. Transfuse Prn. No indication for FERRY OPERATOR for now. Await renal recovery. I [...] was completed later after rounds. Dictation software, Red Crow, was used which may contain error for [...] but not limited to potential need for FERRY OPERATOR . acetaminophen 1,000 mg Oral 3 [...] Net -400 ml . Treatment plan: per book cutter; slowly improving. *Blood pressure: labile; See VS [...] disorder: elevated PTH and phosphorus. Treatment per book cutter (see thei r note). Subjective No chest [...] who was admitted as a transfer from [facility] due t o a mechanical [...] Medications Current Facilty-Administered PRN Medications Ordered in [facility] Medication Dose Route Frequency Provider Last [...] trength and mobility. He is accepted by [facility] in [place], [place] and discharge is delayed due to [...] to 3 days to a SNF in [place], [place] when renal functions a re stable and cleared by Nephrology services. Jerry Chino MD 12/27/2019 Linda Montalvo RN - 12/26/2019 5:09 PM PDT [facility] Service: Wound Care Consult Note Hospital Day: [...] This case has been discussed with Dr. [place], RN and CM. Electronically signed by: ENEDINA [...] who was admitted as a transfer from [facility] due t o a mechanical [...] Medications Current Facilty-Administered PRN Medications Ordered in [facility] Medication Dose Route Frequency Provider Last [...] placement is recommended. 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 Huerta and the at phone number [phone] Code Status: Full Code Regino Greene MD [...] lab follow-up and treatment per hospitalist and book cutter. *Blood pressure: hypotensive; See VS for BP trending. 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 Huerta and the at phone number [phone] Code Status: Full Code Regino Greene MD [...] sodium chloride 0.9% 100 mL/hr at 12/22/19 1857 OBJECTIVE Vital Signs: Vitals with Comments 12/22/2019 [...] GAMMA NAIL; Surgeon: Melquiades Baez DO; Location: [facility] MAIN OR OTHER SURGICAL HISTORY CATARACT EXTRACTION [...] this chart may have been created with Red Crow voice recognition software. Occasi onal wrong-word or sound-alike substitutions may have occurred due to the inherent castañeda itations of voice recognition software. Please read the chart carefully and recognize, using context, where these substitutions have occurred Julián Urbina MD - 12/21/2019 7:38 PM PDTFormatting of this note m ight be different from the original. [facility] Service: Hospitalist History and Physical Date of Admission: Dec 21 2019 Requesting Physician: [facility] Reason for Admission: Right comminuted intertrochanteric fracture of the hip CHIEF COMPLAINT: Mechanical fall tripped over side curb landed on the right hip area right hip pain today HISTORY OF PRESENT ILLNESS The patient is a 89 y.o. male Transfer from [facility] after fall with right hip fracture with multiple comor bidities being on Eliquis as well requested for higher level of care to transfer to [facility] wit h orthopedic 89 years old gentleman fall at this morning mechanical fall tripped on the curb and result ed in right hip pain [facility] visited x-ray found to have a [...] and LFT Orthopedic on-call was consulted from [facility] and requested to transfer for higher level of care At [facility] with multiple comorbidities REVIEW OF SYSTEMS 12 [...] transfer lab WBC 5.9 hb10.2 hct 30.5 hrk846 potassium 5.1 Bun 85 cre 2.6 Co2-24 [...] as per stated reason Chronic A. fib [id number]- VASC score is 6- Hold Eliquis for [...] Old records reviewed on EMR. Dictation software, Red Crow, used which may contain error for similar sounding words even af ter review. Personal communication requested for any clarification. Disposition: inpatient Code Status: FULL CODE Primary Care Physician: MD Julián Nobles MD 12/21/2019 documented in thi s encounter Consult Notes Lamont Hernandez MD - 12/29/2019 10:26 AM PDT Gastroenterology Consultation: [facility] 12/29/2019 Andres Jones Ramirez 89 y.o. [id number] History of present illness: Gastroenterology consultation is requested for evaluation of GI bleeding with melena. This is an 89-year-old male with multiple medical problems and a history of hypertension, d iabetes, CKD stage III who was transferred from [facility] due to a fall and he sustain [...] GAMMA NAIL; Surgeon: Melquiades Baez DO; Location: [facility] MAIN OR OTHER SURGICAL HISTORY CATARACT EXTRACTION [...] this chart may have been created with Red Crow voice recognition software. Occasi onal wrong-word or sound-alike substitutions may have occurred due to the inherent castañeda itations of voice recognition software. Please read the chart carefully and recognize, using context, where these substitutions have occurred Hayley Peres MD - 12/25/2019 8:46 PM PDT Consulted by [facility] Problem List: Patient Active Problem List [...] III with baseline creatinine 1.7 admitted to [facility] on December 20 after a mechanical fall that led to right hip fracture. The patient was transferr ed from [facility] for surgery. The patient did [...] Tristan Gage at the nephrology clinic in [place]. The patien t is poor historian and does not recall seeing a book cutter in the past. He also not awar [...] Order(s): IP CONSULT TO WOUND OSTOMY NURSE [facility] Service: Wound Care Consult Note Hospital Day: [...] Elizabeth MD - 12/24/2019 11:33 AM PDT [facility] Service: Physicial Medicine & Rehab Consultation note [...] curb and resulted in right hip pain [facility] visited x-ray found to have [...] diabetes, and cirrhosis He was transferred to [facility], and is now s/p ORIF [...] GAMMA NAIL; Surgeon: Melquiades Baez, ; Location: [facility] MAIN OR OTHER SURGICAL HISTORY CATARACT EXTRACTION [...] should consist SNF placement closer to home ([place]). Code Status: Full Code Wing Marie Reed MD 12/24/2019 Melquiades Gill, - 12/22/2019 7:50 AM PDTAssociated Order(s): PROVIDER TO PROVIDER CONSULT [facility] Orthopaedic and Sports Medicine Service: [...] hip f racture. He was transferred to [facility] for concerns with other comor bidities. He [...] surgery. He will be taken for a [facility] hip cephalo-medullary nail.The risks and benefits [...] might b e different from the original. [facility]ILITY TRANSFER ORDERS Patient Name: Andres Guzmán [...] limb(s)): [x] OT Evaluation & Treat [] RESOURCE DEVELOPMENT DIRECTOR Evaluation Treat Wound/Skin Care: [] Follow current recommendations of the wound team for treatment. [] Wound Vac management per nursing protocol. Labs/Imaging: [] PT/INR: Frequency per SNF provider Goal INR: [] Fingerstick glucose check before meals and bedtime and PRN [] Labs: Follow up: Melquiades Baez DO [address] [facility] [id number] In 2 weeks For post op care Barbara Gilman MD [address] [place] [id number] In 1 week I have advised this [...] for 30 days. aka: PROTONIX By: Regino Gerene MD Quant: 60 tablet sucralfate 1 g [...] Taken Toward Discharge: Attended morning rounds, called [facility] and provided upd ate of Pt Next Steps: d/c to [facility] Community Support Services Current Outpt/Agency/Support Groups: none Community Agency Name: none Other Resources: Discharge Transportation Transportation Needs: agency transportation Notes: Pt on course to discharge to [facility] tomorrow. Idalia ma with [facility] team and they are accepting Pt tomorrow [...] LTG Status continued at 12/30/2019 0805 LTG [place] Level supervised at 12/30/2019 0805 LTG Assistive Device none at 12/30/2019 0805 All Transfers Goal Most Recent Value LTG Status new at 12/30/2019804 LTG [place] Level minimum assist (75% patient effort) at 12/30/2019804 LTG Assistive Device 2 wheeled walker (FWW) at 12/30/2019804 Gait Goal Most Recent Value LTG Status new at 12/30/2019804 LTG [place] Level minimum assist (75% patient effort) at [...] concerns. Aware of plan for discharge to [facility] tomorrow and has no concerns [...] Bed Mobility Sit to Supine, Level of [place]: moderate assist (50% patient effort) Safety Issues: decreased use of legs for bridging/pushing Impairments: strength decreased Transfers Chair-Bed, Level of [place]: moderate assist (50% patient effort) [id number]-[id number], Assistive Device: gait belt Sit-Stand, Level of [place]: moderate assist (50% patient effort) Stand-Sit, Level of [place]: moderate assist (50% patient effort) Iwm-Ticqz-Rtc, Assistive Device: gait belt Safety Issues: balance decreased during turns, step length decreased Impairments: strength decreased Goals Reflects last filed data and may be from multiple contributors. All Bed Mobility Goal Most Recent Value LTG Status continued at 12/30/2019 0805 LTG [place] Level supervised at 12/30/2019 0805 LTG Assistive Device none at 12/30/2019 0805 All Transfers Goal Most Recent Value LTG Status new at 12/30/2019 0805 LTG [place] Level minimum assist (75% patient effort) at 12/30/2019 0805 LTG Assistive Device 2 wheeled walker (FWW) at 12/30/2019 0805 Gait Goal Most Recent Value LTG Status new at 12/30/2019 0805 LTG [place] Level minimum assist (75% patient effort) at [...] in low position, gait belt available, teacher education instructor socks on. Problem: Skin Injury Risk Increased [...] (Range of Motion), stair training, strengthening, stretching, argentine ball techniques, wheelchair management/propulsio n training Recommended [...] Documentation: sit to/from stand Sit-Stand, Level of [place]: moderate assist (50% patient effort) Stand-Sit, Level of [place]: moderate assist (50% patient effort) [id number]-[id number]-[id number], Assistive Device: other (see comments)(platform walker ) Maintain Weight Bearing Status: able to maintain weight bearing status Safety Issues: balance decreased during turns Impairments: pain, strength decreased, impaired balance Gait Gait Comments: ambulated with shuffled steps and decreased quita Level of Ch[place]on: moderate assist (50% patient effort) Assistive Device: [...] LTG Status continued at 12/30/2019 08 LTG [place] Level supervised at 12/30/2019 08 LTG Assistive Device none at 12/30/2019 0805 All Transfers Goal Most Recent Value LTG Status new at 12/30/2019 08 LTG [place] Level minimum assist (75% patient effort) at 12/30/2019 08 LTG Assistive Device 2 wheeled walker (FWW) at 12/30/2019 0805 Gait Goal Most Recent Value LTG Status new at 12/30/2019804 LTG [place] Level minimum assist (75% patient effort) at [...] RN at 05/2020 6:04 PM PDTPlan of [facility] - Leatha Mayer RN - 12/29/2019 1:37 [...] Bed Mobility Supine to Sit, Level of [place]: moderate assist (50% patient effort) Sit to Supine, Level of [place]: moderate assist (50% patient effort) Safety Issues: decreased use of legs for bridging/pushing Impairments: strength decreased Transfers Sit-Stand, Level of [place]: moderate assist (50% patient effort) Stand-Sit, Level of [place]: moderate assist (50% patient effort) [id number]-[id number]-Dji, Assistive Device: other (see comments)(UP walker) Safety Issues: balance decreased during turns, step length decreased Impairments: strength decreased Gait Level of Ch[place]on: moderate assist (50% patient effort) Assistive Device: [...] LTG Status new at 12/23/2019 1600 LTG [place] Level supervised at 12/23/2019 1600 LTG Assistive Device none at 12/23/2019 1600 All Transfers Goal Most Recent Value LTG Status new at 12/23/2019 1600 LTG [place] Level modified independent at 12/23/2019 1600 LTG Assistive Device 2 wheeled walker (FWW) at 12/23/2019 1600 Gait Goal Most Recent Value LTG Status new at 12/23/2019 1600 LTG [place] Level stand by assist at 12/23/2019 1600 [...] Bed Mobility Supine to Sit, Level of [place]: moderate assist (50% patient effort) Safety Issues: decreased use of legs for bridging/pushing Impairments: strength decreased Transfers Sit-Stand, Level of [place]: moderate assist (50% patient effort) Stand-Sit, Level of [place]: moderate assist (50% patient effort) [id number]-Lvpim-Qpp, Assistive Device: other (see comments)(UP walker) Safety Issues: balance decreased during turns, step length decreased Impairments: strength decreased Exercises Bed exercises: ankle pumps, quad sets, heel slides, hip abduction/adduction, glut sets Goals Reflects last filed data and may be from multiple contributors. All Bed Mobility Goal Most Recent Value LTG Status new at 12/23/2019 1600 LTG [place] Level supervised at 12/23/2019 1600 LTG Assistive Device none at 12/23/2019 1600 All Transfers Goal Most Recent Value LTG Status new at 12/23/2019 1600 LTG [place] Level modified independent at 12/23/2019 1600 LTG Assistive Device 2 wheeled walker (FWW) at 12/23/2019 1600 Gait Goal Most Recent Value LTG Status new at 12/23/2019 1600 LTG [place] Level stand by assist at 12/23/2019 1600 [...] handled ghada e horn, long handled sponge, warping machine operator, sock aide Barriers to community-based discharge: Level of assistance for ADLs/Mobility and Fall risk Recommended Frequency: 3 times/wk for 10 days with reassessment due by 01/03/20 Summary: pt supine in bed upon PLATING ENGINEER arrival. Agreeable to participate in OT session [...] x1, rest break inbetween set d/t fatigue. ABSENTEE-SHAWNEE for proper tech during ex able to continue seq uence intitially however would require cueing/assist later on in reps. Goals Reflects last filed data and may be from multiple contributors. LB Dressing Goal Most Recent Value LTG Status new at 12/24/2019 0953 LTG [place] Level moderate assist (50% patient effort), verbal cues required at 12/23 0953 LTG Adaptive Equipment warping machine operator, shoe horn, long handled, sock-aid [AE as needed] at 2019 0953 Toilet Transfer Goal Most Recent Value LTG Status new at 12/24/2019 0953 LTG [place] Level minimum assist (75% patient effort), verbal [...] Bed Mobility Supine to Sit, Level of [place]: moderate assist (50% patient effort) Sit to Supine, Level of [place]: moderate assist (50% patient effort) Safety Issues: decreased use of legs for bridging/pushing Impairments: strength decreased Transfers Sit-Stand, Level of [place]: moderate assist (50% patient effort) Stand-Sit, Level of [place]: moderate assist (50% patient effort) Tyr-[id number]-Avd, Assistive Device: other (see comments)(Up walker) Safety Issues: balance decreased during turns, step length decreased Impairments: strength decreased Gait Level of [place]: moderate assist (50% patient effort) Assistive Device: [...] LTG Status new at 12/23/2019 1600 LTG [place] Level supervised at 12/23/2019 1600 LTG Assistive Device none at 12/23/2019 1600 All Transfers Goal Most Recent Value LTG Status new at 12/23/2019 1600 LTG [place] Level modified independent at 12/23/2019 1600 LTG Assistive Device 2 wheeled walker (FWW) at 12/23/2019 1600 Gait Goal Most Recent Value LTG Status new at 12/23/2019 1600 LTG [place] Level stand by assist at 12/23/2019 1600 [...] Bed Mobility Supine to Sit, Level of [place]: moderate assist (50% patient effort) Safety Issues: decreased use of legs for bridging/pushing Impairments: strength decreased Transfers Sit-Stand, Level of [place]: moderate assist (50% patient effort) Stand-Sit, Level of [place]: moderate assist (50% patient effort) Bqq-Wuwwf-Bit, Assistive Device: other (see comments)(Up walker) Safety Issues: balance decreased during turns, step length decreased Impairments: strength decreased Gait Level of [place]arent[place]: moderate assist (50% patient effort) Assistive Device: [...] LTG Status new at 12/23/2019 1600 LTG [place] Level supervised at 12/23/2019 1600 LTG Assistive Device none at 12/23/2019 1600 All Transfers Goal Most Recent Value LTG Status new at 12/23/2019 1600 LTG [place] Level modified independent at 12/23/2019 1600 LTG Assistive Device 2 wheeled walker (FWW) at 12/23/2019 1600 Gait Goal Most Recent Value LTG Status new at 12/23/2019 1600 LTG [place] Level stand by assist at 12/23/2019 1600 [...] for discharge. Cm called Idalia CM at [facility] and updat ed her on Pt [...] Bed Mobility Sit to Supine, Level of [place]on: maximal assist (25% patient effort), verbal cues requ ired Safety Issues: decreased use of legs for bridging/pushing, decreased use of arms for pushin g/pulling Impairments: strength decreased, pain, impaired balance Transfers Sit-Stand, Level of [place]: moderate assist (50% patient effort), verbal cues require d Stand-Sit, Level of [place]: moderate assist (50% patient effort), verbal cues require d [id number]-[id number]-Qpd, Assistive Device: 2 wheeled walker (FWW), gait belt Safety Issues: sequencing ability decreased, balance decreased during turns Gait Level of Charent[place]: moderate assist (50% patient effort) Assistive Device: [...] LTG Status new at 12/23/2019 1600 LTG [place] Level supervised at 12/23/2019 1600 LTG Assistive Device none at 12/23/2019 1600 All Transfers Goal Most Recent Value LTG Status new at 12/23/2019 1600 LTG [place] Level modified independent at 12/23/2019 1600 LTG Assistive Device 2 wheeled walker (FWW) at 12/23/2019 1600 Gait Goal Most Recent Value LTG Status new at 12/23/2019 1600 LTG [place] Level stand by assist at 12/23/2019 1600 [...] Discharge: Attended rounds Next Steps: d/c to [facility] Community Support Services Current Outpt/Agency/Support Groups: none Community Agency Name: none Other Resources: Discharge Transportation Transportation Needs: agency transportation Notes: Pt not medically ready for discharge. Cm received call from [facility] from [facility]. Pt has been accepted but wants [...] (Range of Motion), stair training, strengthening, stretching, argentine ball techniques, w heelchair management/propulsion training Recommended [...] HOB elevated Supine to Sit, Level of [place]: moderate assist (50% patient effort), verbal cues req uired Safety Issues: decreased use of legs for bridging/pushing, decreased use of arms for pushin g/pulling Impairments: strength decreased, pain, impaired balance Transfers Additional Documentation: sit to/from stand Chair-Bed, Level of [place]: moderate assist (50% patient effort), verbal cues require d Fmr-Fcjif-Pbm, Assistive Device: 2 wheeled walker (FWW) Sit-Stand, Level of [place]: moderate assist (50% patient effort), verbal cues require d Stand-Sit, Level of [place]: moderate assist (50% patient effort), verbal cues require d Wzv-Myfum-Erc, Assistive Device: 2 wheeled walker (FWW), gait belt Maintain Weight Bearing Status: able to maintain weight bearing status Safety Issues: sequencing ability decreased, balance decreased during turns Impairments: impaired balance, coordination impaired, pain, decreased flexibility Gait Gait Comments: 4 steps to chair Level of Charenton: moderate assist (50% patient effort) Assistive Device: [...] LTG Status new at 12/23/2019 1600 LTG [place] Level supervised at 12/23/2019 1600 LTG Assistive Device none at 12/23/2019 1600 All Transfers Goal Most Recent Value LTG Status new at 12/23/2019 1600 LTG [place] Level modified independent at 12/23/2019 1600 LTG Assistive Device 2 wheeled walker (FWW) at 12/23/2019 1600 Gait Goal Most Recent Value LTG Status new at 12/23/2019 1600 LTG [place] Level stand by assist at 12/23/2019 1600 [...] long handled shoe horn, long handled sponge, warping machine operator, sock aide(BSC (?)) Barriers to community-based [...] seated in the recliner Grooming, Level of [place]: supervised Assistive Device: none Grooming Assess/Train, Position: sitting Bed Mobility Additional Documentation: supine to/from sit Assistive Device: HOB elevated, bed rails Sit to Supine, Level of [place]: maximal assist (25% patient effort), verbal cues [...] stand, bed to/from chair Chair-Bed, Level of [place]: moderate assist (50% patient effort), verbal cues require d Boo-Oamjk-Nvh, Assistive Device: gait belt Sit-Stand, Level of [place]: moderate assist (50% patient effort), verbal cues require d Stand-Sit, Level of [place]: moderate assist (50% patient effort), verbal cues require d Sjb-Urwvv-Dil, Assistive Device: 2 wheeled walker (FWW), gait [...] LTG Status new at 12/24/2019 0953 LTG [place] Level moderate assist (50% patient effort), verbal cues required at 12/23 0953 LTG Adaptive Equipment warping machine operator, shoe horn, long handled, sock-aid [AE as needed] at 2019 0953 Toilet Transfer Goal Most Recent Value LTG Status new at 12/24/2019 0953 LTG [place] Level minimum assist (75% patient effort), verbal [...] HOB elevated Supine to Sit, Level of [place]: moderate assist (50% patient effort), verbal cues req uired Safety Issues: decreased use of arms for pushing/pulling, decreased use of legs for bridgin g/pushing Impairments: decreased flexibility, pain, impaired balance Transfers Additional Documentation: sit to/from stand Sit-Stand, Level of [place]: minimal assist (75% patient effort) Stand-Sit, Level of [place]: minimal assist (75% patient effort) Gsx-Bardh-Gma, Assistive Device: 2 wheeled walker (FWW) Maintain Weight Bearing Status: able to maintain weight bearing status Safety Issues: sequencing ability decreased Impairments: decreased flexibility, impaired balance, pain Gait Gait Comments: side stepping to recliner Level of Charenton: minimal assist (75% patient effort) Assistive Device: [...] LTG Status new at 12/23/2019 1600 LTG [place] Level supervised at 12/23/2019 1600 LTG Assistive Device none at 12/23/2019 1600 All Transfers Goal Most Recent Value LTG Status new at 12/23/2019 1600 LTG [place] Level modified independent at 12/23/2019 1600 LTG Assistive Device 2 wheeled walker (FWW) at 12/23/2019 1600 Gait Goal Most Recent Value LTG Status new at 12/23/2019 1600 LTG [place] Level stand by assist at 12/23/2019 1600 [...] Medical Equipment Provider: Pharmacy/Medication Needs: other (see comments)([facility] in [place], [place]) Transportation Needs: agency transportation Initial Plan Anticipated [...] if needed before going home. Cm called [facility] and received contact [facility] - Idalia Garduno [phone]. Cm sent referral to [facility]. Pt stated that Deanna (daughter) edgardo harmon [...] (Range of Motion), stair training, strengthening, stretching, argentine ball techniques, wheelchair management/propulsio n training Recommended [...] HOB elevated Supine to Sit, Level of [place]: moderate assist (50% patient effort) Sit to Supine, Level of [place]: maximal assist (25% patient effort) Safety Issues: decreased use of arms for pushing/pulling, decreased use of legs for bridgin g/pushing Impairments: decreased flexibility, impaired balance, pain Transfers Additional Documentation: sit to/from stand Sit-Stand, Level of Ch[place]: minimal assist (75% patient effort) Stand-Sit, Level of [place]: minimal assist (75% patient effort) Tvk-Bquxz-Unf, Assistive Device: 2 wheeled walker (FWW) Maintain [...] LTG Status new at 12/23/2019 1600 LTG [place] Level supervised at 12/23/2019 1600 LTG Assistive Device none at 12/23/2019 1600 All Transfers Goal Most Recent Value LTG Status new at 12/23/2019 1600 LTG [place] Level modified independent at 12/23/2019 1600 LTG Assistive Device 2 wheeled walker (FWW) at 12/23/2019 1600 Gait Goal Most Recent Value LTG Status new at 12/23/2019 1600 LTG [place] Level stand by assist at 12/23/2019 1600 [...] Melquiades Baez DO - 12/22/2019 10:34 AM [facility] Orthop aedic and Sports Medicine [...] 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 EKG and Ches [...] day shift and every two hours on fisher gill net to monitor and medicate appropriately. 2. Staff [...] [address] | | | | | | [place] [address] | | | | | | [phone] | | | | | | | | +--------+ + + + + | 03/24/ | Hospital | | Anna Edouard, | Esophagitis | 2019 | Encounter | | MD [address] | | | | | | [place] [address] | | | | | | [phone] | | | | | | | | +--------+ + + + + | 03/24/ | Surgery | | Anna Edouard | EGD | 2019 | | | [address] | | | | | | [place] [address] | | | | | | [phone] | | | | | | | | +--------+ + + + + | 03/31/ | Office | Orthopedic Surgery | Melquiades Baez | | | 2019 | Visit | | DO [address] | | | | | | [place], | | | | | | [place] [address] | | | | | | [phone] | | | | | | | | +--------+ + + + + | 04/21/ | Office | Nephrology | Isiah Jade MD | | | 2019 | Visit | | [address] [facility] | | | | | | [address] | | | | | | [address] | | | | | | | | +--------+ + + + + | 05/07/ | Office | Cardiology | Darek Charlee | | | 2019 | Visit | | [address] | | | | | | [address] | | | | | | [place] [address] | | | | | | [phone] | | | | | | | [...] | | | POC | performed at [facility];[address] | | LABORATORY | | | | [address];[place], [place] | | | | | | [address] | | | | + + + + + + + + | Specimen | + + | | + + + + + + + | Performing | Address | City/State/Zipcode | Phone Number | | Organization | | | | + + + + + | [facility] | [address] | [place] [address] | [phone] | + + + + + POC [...] | | | POC | performed at [facility];[address] | | LABORATORY | | | | [address];[place] | | | | | | [address] | | | | + + + + + + + + | Specimen | + + | | + + + + + + + | Performing | Address | City/State/Zipcode | Phone Number | | Organization | | | | + + + + + | [facility] | [address] | [place] [address] | [phone] | + + + + + Basic [...] | 8.6 | 8.5 - 10.5 | [facility] | | | | | mg/dL | LABORATORY | | + + + + + + | Estimated | 23 (L)Comment: GFR <60: | >60 | [facility] | | | GFR | CHRONIC [...] | | | | | | [facility] traceable | | | | | | equation.Testing | | | | | | performed at [facility] | | | | | | [facility];[place], [place] | | | | | | [address] | | | | + + + + + + + + | Specimen | + + | Blood | + + + + + + + | Performing | Address | City/State/Zipcode | Phone Number | | Organization | | | | + + + + + | [facility] | [address] | [place] [address] | [phone] | + + + + + CBC [...] | | | Absolute | performed at [facility];[address] | K/uL | LABORATORY | | | | [address];[place], [place] | | | | | | [address] | | | | + + + + + + + + | Specimen | + + | Blood | + + + + + + + | Performing | Address | City/State/Zipcode | Phone Number | | Organization | | | | + + + + + | [facility] | [address] | [place] [address] | [phone] | + + + + + POC Glucose (12/31/2019 9:02 PM PDT) + + + + + + | Component | Value | Ref Range | Performed | Pathologist | | | | | At | Signature | + + + + + + | Glucose, | 137 (H)Comment: Testing | 65 - 99 mg/dL | [facility] | | | POC | performed at [facility];[address] | | LABORATORY | | | | [address];[place] | | | | | | [address] | | | | + + + + + + + + | Specimen | + + | | + + + + + + + | Performing | Address | City/State/Zipcode | Phone Number | | Organization | | | | + + + + + | [facility] | [address] | [place] [address] | [phone] | + + + + + POC Glucose (12/31/2019 5:31 PM PDT) + + + + + + | Component | Value | Ref Range | Performed | Pathologist | | | | | At | Signature | + + + + + + | Glucose, | 196 (H)Comment: Testing | 65 - 99 mg/dL | [facility] | | | POC | performed at [facility];[address] | | LABORATORY | | | | [address];[place] | | | | | | [address] | | | | + + + + + + + + | Specimen | + + | | + + + + + + + | Performing | Address | City/State/Zipcode | Phone Number | | Organization | | | | + + + + + | [facility] | [address] | [place] [address] | [phone] | + + + + + POC [...] | | | POC | performed at [facility];[address] | | LABORATORY | | | | [address];[place], [place] | | | | | | [address] | | | | + + + + + + + + | Specimen | + + | | + + + + + + + | Performing | Address | City/State/Zipcode | Phone Number | | Organization | | | | + + + + + | [facility] | [address] | [place] [address] | [phone] | + + + + + POC [...] | | | POC | performed at [facility];[address] | | LABORATORY | | | | [address];[place] | | | | | | [address] | | | | + + + + + + + + | Specimen | + + | | + + + + + + + | Performing | Address | City/State/Zipcode | Phone Number | | Organization | | | | + + + + + | [facility] | [address] | [place] [address] | [phone] | + + + + + Basic [...] | 8.5 | 8.5 - 10.5 | [facility] | | | | | mg/dL | LABORATORY | | + + + + + + | Estimated | 18 (L)Comment: GFR <60: | >60 | [facility] | | | GFR | CHRONIC [...] | | | | | performed at [facility], [address] | | | | | | [facility], | | | | | | [place] [address] | | | | + + + + + + + + | Specimen | + + | Blood | + + + + + + + | Performing | Address | City/State/Zipcode | Phone Number | | Organization | | | | + + + + + | [facility] | [address] | [place] [address] | [phone] | + + + + + CBC [...] | | | Absolute | performed at [facility], [address] | K/uL | LABORATORY | | | | [address], | | | | | | [place] [address] | | | | + + + + + + + + | Specimen | + + | Blood | + + + + + + + | Performing | Address | City/State/Zipcode | Phone Number | | Organization | | | | + + + + + | [facility] | [address] | [place] [address] | [phone] | + + + + + POC Glucose (12/30/2019 8:55 PM PDT) + + + + + + | Component | Value | Ref Range | Performed | Pathologist | | | | | At | Signature | + + + + + + | Glucose, | 192 (H)Comment: Testing | 65 - 99 mg/dL | [facility] | | | POC | performed at [facility];[address] | | LABORATORY | | | | [address];[place] | | | | | | [address] | | | | + + + + + + + + | Specimen | + + | | + + + + + + + | Performing | Address | City/State/Zipcode | Phone Number | | Organization | | | | + + + + + | [facility] | [address] | [place] [address] | [phone] | + + + + + POC Glucose (12/30/2019 4:11 PM PDT) + + + + + + | Component | Value | Ref Range | Performed | Pathologist | | | | | At | Signature | + + + + + + | Glucose, | 130 (H)Comment: Testing | 65 - 99 mg/dL | [facility] | | | POC | performed at [facility];[address] | | LABORATORY | | | | [address];[place] | | | | | | [address] | | | | + + + + + + + + | Specimen | + + | | + + + + + + + | Performing | Address | City/State/Zipcode | Phone Number | | Organization | | | | + + + + + | [facility] | [address] | [place] [address] | [phone] | + + + + + POC [...] | | | POC | performed at [facility];[address] | | LABORATORY | | | | [address];[place], [place] | | | | | | [address] | | | | + + + + + + + + | Specimen | + + | | + + + + + + + | Performing | Address | City/State/Zipcode | Phone Number | | Organization | | | | + + + + + | [facility] | [address] | [place] [address] | [phone] | + + + + + Basic [...] 20 (L)Comment: GFR <60: | >60 | [facility] | | | GFR | CHRONIC [...] | | | | | performed at [facility] | | | | | | [facility];[place], [place] | | | | | | [address] | | | | + + + + + + + + | Specimen | + + | Blood | + + + + + + + | Performing | Address | City/State/Zipcode | Phone Number | | Organization | | | | + + + + + | [facility] | [address] | [place] [address] | [phone] | + + + + + POC [...] | | | POC | performed at [facility];[address] | | LABORATORY | | | | [address];[place] | | | | | | [address] | | | | + + + + + + + + | Specimen | + + | | + + + + + + + | Performing | Address | City/State/Zipcode | Phone Number | | Organization | | | | + + + + + | [facility] | [address] | [place] [address] | [phone] | + + + + + CBC [...] | | | Absolute | performed at [facility];[address] | K/uL | LABORATORY | | | | [address];[place], [place] | | | | | | [address] | | | | + + + + + + + + | Specimen | + + | Blood | + + + + + + + | Performing | Address | City/State/Zipcode | Phone Number | | Organization | | | | + + + + + | [facility] | [address] | [place] [address] | [phone] | + + + + + POC Glucose (12/29/2019 11:56 PM PDT) + + + + + + | Component | Value | Ref Range | Performed | Pathologist | | | | | At | Signature | + + + + + + | Glucose, | 109 (H)Comment: Testing | 65 - 99 mg/dL | [facility] | | | POC | performed at [facility];[address] | | LABORATORY | | | | [address];[place] | | | | | | [address] | | | | + + + + + + + + | Specimen | + + | | + + + + + + + | Performing | Address | City/State/Zipcode | Phone Number | | Organization | | | | + + + + + | [facility] | [address] | [place] [address] | [phone] | + + + + + Hemoglobin [...] [facility] | | | | performed at [facility];[address] | | LABORATORY | | | | [address];[place] | | | | | | [address] | | | | + + + + + + + + | Specimen | + + | Blood | + + + + + + + | Performing | Address | City/State/Zipcode | Phone Number | | Organization | | | | + + + + + | [facility] | [address] | [place] [address] | [phone] | + + + + + POC Glucose (12/29/2019 6:06 PM PDT) + + + + + + | Component | Value | Ref Range | Performed | Pathologist | | | | | At | Signature | + + + + + + | Glucose, | 128 (H)Comment: Testing | 65 - 99 mg/dL | [facility] | | | POC | performed at [facility];[address] | | LABORATORY | | | | [address];[place], [place] | | | | | | [address] | | | | + + + + + + + + | Specimen | + + | | + + + + + + + | Performing | Address | City/State/Zipcode | Phone Number | | Organization | | | | + + + + + | [facility] | [address] | [place] [address] | [phone] | + + + + + Hemoglobin [...] [facility] | | | | performed at [facility];[address] | | LABORATORY | | | | [address];[place] | | | | | | [address] | | | | + + + + + + + + | Specimen | + + | Blood | + + + + + + + | Performing | Address | City/State/Zipcode | Phone Number | | Organization | | | | + + + + + | [facility] | [address] | [place] [address] | [phone] | + + + + + POC [...] | | | POC | performed at [facility];[address] | | LABORATORY | | | | [address];[place] | | | | | | [address] | | | | + + + + + + + + | Specimen | + + | | + + + + + + + | Performing | Address | City/State/Zipcode | Phone Number | | Organization | | | | + + + + + | [facility] | [address] | [place] [address] | [phone] | + + + + + POC [...] | | | POC | performed at [facility];[address] | | LABORATORY | | | | [address];[place], [place] | | | | | | [address] | | | | + + + + + + + + | Specimen | + + | | + + + + + + + | Performing | Address | City/State/Zipcode | Phone Number | | Organization | | | | + + + + + | [facility] | [address] [facility] | [place] [address] | [phone] | + + + + + Surgical [...] | | technical component was performed by [employer], [address] [place] [address] | | [place] [address] ([employer] Assistant: Padmini Sellers MD; CLIA# | | | [id number]). Professional interpretation was performed [facility] | | | [facility], [address], | | | [place] [address] ([employer] Assistant: Oscar Maynard M.D.; CLIA#: | | | [id number]). Diagnostician: Padmini Sellers | | | MDPathologistElectronically [...] | |The technical component was performed by [employer], [address] [place] [address] ([employer] Assistant: Padmini Sellers MD; CLIA# [id number]). Professional interpretation was performed by | | |[employer], [address] [address] ([employer] Assistant: Oscar Maynard M.D.; CLIA#: [id number]). | | | | | |Diagnostician: Padmini [...] Performed At | + + + | [facility] | [facility] | | [facility] | PROVATION | | CenterGastroenterology | | | Patient Name: Andres Guzmán | | | Procedure Date: 12/29/2019 8:36 AMMRN: [id number] | | | of : 1930 | [...] the anesthesiologist and the | | | telecasting technician in the pre-procedure area in the [...] | | | with Gold probe 7 Bangladeshi x 5 pulses was successful with | [...] | | | AMNumber of Addenda: 0 [facility] | | | - Check hemoglobin q 6 hours for one day. | | | | | | | | |LAMONT HERNANDEZ MD | | |12/29/2019 10:19:54 AM | | |This report has been signed electronically. | | | | | |Note Initiated On: 12/29/2019 8:36 AM | | |Number of Addenda: 0 | | | | | | [facility] | | + + + + +---------+ [...] [facility] | | | | performed at [facility];[address] | | LABORATORY | | | | [facility];[place], [place] | | | | | | [address] | | | | + + + + + + + + | Specimen | + + | Blood | + + + + + + + | Performing | Address | City/State/Zipcode | Phone Number | | Organization | | | | + + + + + | [facility] | [address] | [place] [address] | [phone] | + + + + + POC Glucose (12/29/2019 6:06 AM PDT) + + + + + + | Component | Value | Ref Range | Performed | Pathologist | | | | | At | Signature | + + + + + + | Glucose, | 146 (H)Comment: Testing | 65 - 99 mg/dL | [facility] | | | POC | performed at [facility];[address] | | LABORATORY | | | | [address];[place] | | | | | | [address] | | | | + + + + + + + + | Specimen | + + | | + + + + + + + | Performing | Address | City/State/Zipcode | Phone Number | | Organization | | | | + + + + + | [facility] | [address] | [place] [address] | [phone] | + + + + + CBC [...] | | | Absolute | performed at [facility];[address] | K/uL | LABORATORY | | | | [address];[place] | | | | | | [address] | | | | + + + + + + + + | Specimen | + + | Blood | + + + + + + + | Performing | Address | City/State/Zipcode | Phone Number | | Organization | | | | + + + + + | [facility] | [address] | [place] [address] | [phone] | + + + + + Protime [...] | | | | | performed at [facility];[address] | | | | | | [address];[place], [place] | | | | | | [address] | | | | + + + + + + + + | Specimen | + + | Blood | + + + + + + + | Performing | Address | City/State/Zipcode | Phone Number | | Organization | | | | + + + + + | [facility] | [address] | [place] [address] | [phone] | + + + + + Basic [...] 20 (L)Comment: GFR <60: | >60 | [facility] | | | GFR | CHRONIC [...] | | | | | | [facility]D [facility] traceable | | | | | | equation.Testing | | | | | | performed at [facility];[address] | | | | | | [address] [facility];[place], [place] | | | | | | [address] | | | | + + + + + + + + | Specimen | + + | Blood | + + + + + + + | Performing | Address | City/State/Zipcode | Phone Number | | Organization | | | | + + + + + | [facility] | [address] [facility] | [place] [address] | [phone] | + + + + + POC [...] | | | POC | performed at [facility];[address] | | LABORATORY | | | | [address];[place] | | | | | | [address] | | | | + + + + + + + + | Specimen | + + | | + + + + + + + | Performing | Address | City/State/Zipcode | Phone Number | | Organization | | | | + + + + + | [facility] | [address] | [place] [address] | [phone] | + + + + + Hemoglobin [...] Testing | 39.0 - 50.0 % | [facility] | | | | performed at [facility];[address] | | LABORATORY | | | | [address];[place] | | | | | | [address] | | | | + + + + + + + + | Specimen | + + | Blood | + + + + + + + | Performing | Address | City/State/Zipcode | Phone Number | | Organization | | | | + + + + + | [facility] | [address] | [place] [address] | [phone] | + + + + + POC [...] | | | POC | performed at [facility];[address] | | LABORATORY | | | | [address];[place], [place] | | | | | | [address] | | | | + + + + + + + + | Specimen | + + | | + + + + + + + | Performing | Address | City/State/Zipcode | Phone Number | | Organization | | | | + + + + + | [facility] | [address] | [place] [address] | [phone] | + + + + + Fecal [...] [address] | | | | | [address];[place] [address] | | | | + + + + + + + + | Specimen | + + | Stool - Stool | | specimen (specimen) | + + + + + + + | Performing | Address | City/State/Zipcode | Phone Number | | Organization | | | | + + + + + | [facility] | [address] | [place] [address] | [phone] | + + + + + POC [...] | | | POC | performed at [facility];[address] | | LABORATORY | | | | [address];[place] | | | | | | [address] | | | | + + + + + + + + | Specimen | + + | | + + + + + + + | Performing | Address | City/State/Zipcode | Phone Number | | Organization | | | | + + + + + | [facility] | [address] | [place] [address] | [phone] | + + + + + Hemoglobin [...] [facility] | | | | performed at [facility];[address] | | LABORATORY | | | | [address];[place] | | | | | | [address] | | | | + + + + + + + + | Specimen | + + | Blood | + + + + + + + | Performing | Address | City/State/Zipcode | Phone Number | | Organization | | | | + + + + + | [facility] | [address] | [place] [address] | [phone] | + + + + + POC [...] | | | POC | performed at [facility];[address] | | LABORATORY | | | | [address];[place] | | | | | | [address] | | | | + + + + + + + + | Specimen | + + | | + + + + + + + | Performing | Address | City/State/Zipcode | Phone Number | | Organization | | | | + + + + + | [facility] | [address] | [place] [address] | [phone] | + + + + + POC Glucose (12/28/2019 7:03 AM PDT) + + + + + + | Component | Value | Ref Range | Performed | Pathologist | | | | | At | Signature | + + + + + + | Glucose, | 153 (H)Comment: Testing | 65 - 99 mg/dL | [facility] | | | POC | performed at [facility];[address] | | LABORATORY | | | | [address];[place] | | | | | | [address] | | | | + + + + + + + + | Specimen | + + | | + + + + + + + | Performing | Address | City/State/Zipcode | Phone Number | | Organization | | | | + + + + + | [facility] | [address] | [place] [address] | [phone] | + + + + + CBC [...] | | | Absolute | performed at [facility], [address] | K/uL | LABORATORY | | | | [address], | | | | | | [place] [address] | | | | + + + + + + + + | Specimen | + + | Blood | + + + + + + + | Performing | Address | City/State/Zipcode | Phone Number | | Organization | | | | + + + + + | [facility] | [address] | [place] [address] | [phone] | + + + + + Basic [...] 16 (L)Comment: GFR <60: | >60 | [facility] | | | GFR | CHRONIC [...] | | | | | | MDRD [facility] traceable | | | | | | equation.Testing | | | | | | performed at [facility], [address] | | | | | | [facility], | | | | | | [place] [address] | | | | + + + + + + + + | Specimen | + + | Blood | + + + + + + + | Performing | Address | City/State/Zipcode | Phone Number | | Organization | | | | + + + + + | [facility] | [address] [facility] | [place] [address] | [phone] | + + + + + POC [...] | | | POC | performed at [facility];[address] | | LABORATORY | | | | [address];[place] | | | | | | [address] | | | | + + + + + + + + | Specimen | + + | | + + + + + + + | Performing | Address | City/State/Zipcode | Phone Number | | Organization | | | | + + + + + | [facility] | [address] | [place] [address] | [phone] | + + + + + POC [...] | | | POC | performed at [facility];[address] | | LABORATORY | | | | [address];[place] | | | | | | [address] | | | | + + + + + + + + | Specimen | + + | | + + + + + + + | Performing | Address | City/State/Zipcode | Phone Number | | Organization | | | | + + + + + | [facility] | [address] [facility] | [place] [address] | [phone] | + + + + + Red [...] | [facility] | | | COMMENT | [facility];[address] | | LABORATORY | | | | Blvd;[place] [address] | | | | + + + + + + + + | Specimen | + + | | + + + + + + + | Performing | Address | City/State/Zipcode | Phone Number | | Organization | | | | + + + + + | [facility] | [address] | [place] [address] | [phone] | + + + + + Type [...] + + + | BB BAND | [id number] | | [facility] | | | | | | LABORATORY | | + + + + + + | UNIT # | [id number] | | [facility] | | | | [...] + + + | UNIT # | [id number] | | [facility] | | | | [...] | | | RESULT | performed at [facility];[address] | | LABORATORY | | | | [address];[place], [place] | | | | | | [address] | | | | + + + + + + + + | Specimen | + + | Blood | + + + + + + + | Performing | Address | City/State/Zipcode | Phone Number | | Organization | | | | + + + + + | [facility] | [address] | [place] [address] | [phone] | + + + + + POC [...] | | | POC | performed at [facility];[address] | | LABORATORY | | | | [address];[place], [place] | | | | | | [address] | | | | + + + + + + + + | Specimen | + + | | + + + + + + + | Performing | Address | City/State/Zipcode | Phone Number | | Organization | | | | + + + + + | [facility] | [address] | [place] [address] | [phone] | + + + + + CBC [...] 0.02Comment: Testing | 0.00 - 0.10 | [facility] | | | Absolute | performed at [facility], [address] | K/uL | LABORATORY | | | | [address], | | | | | | [place] [address] | | | | + + + + + + + + | Specimen | + + | | + + + + + + + | Performing | Address | City/State/Zipcode | Phone Number | | Organization | | | | + + + + + | [facility] | [address] | [place] [address] | [phone] | + + + + + Procalcitonin [...] | | | | | | at [facility];[address] [place] [address] | | | | | | [facility];[place] [address] | | | | + + + + + + + + | Specimen | + + | Blood | + + + + + + + | Performing | Address | City/State/Zipcode | Phone Number | | Organization | | | | + + + + + | [facility] | [address] | [place] [address] | [phone] | + + + + + Basic [...] 13 (L)Comment: GFR <60: | >60 | [facility] | | | GFR | CHRONIC [...] | | | | | performed at [facility], [address] | | | | | | [facility], | | | | | | [place] [address] | | | | + + + + + + + + | Specimen | + + | Blood | + + + + + + + | Performing | Address | City/State/Zipcode | Phone Number | | Organization | | | | + + + + + | [facility] | [address] | [place] [address] | [phone] | + + + + + Vitamin D, Deficiency Screen (25-Hydroxy) (12/27/2019 5:04 AM PDT) + + + + + + | Component | Value | Ref Range | Performed | Pathologist | | | | | At | Signature | + + + + + + | Vit D, | 25.2 (L)Comment: Vitamin | 30.0 - 100.0 | [facility] | | | 25-Hydroxy | D deficiency has been | ng/mL | LABORATORY | | | | defined by the [place] | | | | | | ofMedicine [...] IOM | | | | | | ([place] of Medicine). | | | | | [...] | | | | | performed at [facility], | | | | | | [address], | | | | | | [facility] [address] | | | | + + + + + + + + | Specimen | + + | Blood | + + + + + + + | Performing | Address | City/State/Zipcode | Phone Number | | Organization | | | | + + + + + | [facility] | [address] | [place] [address] | [phone] | + + + + + Potassium (12/27/2019 12:08 AM PDT) + + + + + + | Component | Value | Ref Range | Performed | Pathologist | | | | | At | Signature | + + + + + + | K | 4.0Comment: Testing | 3.5 - 4.9 | [facility] | | | | performed at [facility];[address] | mmol/L | LABORATORY | | | | [address];[place] | | | | | | [address] | | | | + + + + + + + + | Specimen | + + | Blood | + + + + + + + | Performing | Address | City/State/Zipcode | Phone Number | | Organization | | | | + + + + + | [facility] | [address] | [place] [address] | [phone] | + + + + + Magnesium (12/27/2019 12:08 AM PDT) + + + + + + | Component | Value | Ref Range | Performed | Pathologist | | | | | At | Signature | + + + + + + | Magnesium | 2.2Comment: Testing | 1.7 - 2.4 mg/dL | [facility] | | | | performed at [facility];[address] | | LABORATORY | | | | [address];[place], [place] | | | | | | [address] | | | | + + + + + + + + | Specimen | + + | Blood | + + + + + + + | Performing | Address | City/State/Zipcode | Phone Number | | Organization | | | | + + + + + | [facility] | [address] | [place] [address] | [phone] | + + + + + ECG [...] | | | POC | performed at [facility];[address] | | LABORATORY | | | | [address];[place] | | | | | | [address] | | | | + + + + + + + + | Specimen | + + | | + + + + + + + | Performing | Address | City/State/Zipcode | Phone Number | | Organization | | | | + + + + + | [facility] | [address] | [place] [address] | [phone] | + + + + + POC Glucose (12/26/2019 5:02 PM PDT) + + + + + + | Component | Value | Ref Range | Performed | Pathologist | | | | | At | Signature | + + + + + + | Glucose, | 154 (H)Comment: Testing | 65 - 99 mg/dL | [facility] | | | POC | performed at [facility];[address] | | LABORATORY | | | | [address];[place], [place] | | | | | | [address] | | | | + + + + + + + + | Specimen | + + | | + + + + + + + | Performing | Address | City/State/Zipcode | Phone Number | | Organization | | | | + + + + + | [facility] | [address] | [place] [address] | [phone] | + + + + + Complement [...] | | | COMPLEMENT | performed at [facility], | | LABORATORY | | | | [address], | | | | | | [facility] [address] | | | | + + + + + + + + | Specimen | + + | | + + + + + + + | Performing | Address | City/State/Zipcode | Phone Number | | Organization | | | | + + + + + | [facility] | [address] | [place] [address] | [phone] | + + + + + Complement C3 Ag (12/26/2019 12:33 PM PDT) + + + + + + | Component | Value | Ref Range | Performed | Pathologist | | | | | At | Signature | + + + + + + | C3 | 53 (L)Comment: Testing | 82 - 167 mg/dL | [facility] | | | COMPLEMENT | performed at [facility], | | LABORATORY | | | | [address], | | | | | | [facility] [address] | | | | + + + + + + + + | Specimen | + + | | + + + + + + + | Performing | Address | City/State/Zipcode | Phone Number | | Organization | | | | + + + + + | [facility] | [address] | [place] [address] | [phone] | + + + + + POC Glucose (12/26/2019 11:15 AM PDT) + + + + + + | Component | Value | Ref Range | Performed | Pathologist | | | | | At | Signature | + + + + + + | Glucose, | 161 (H)Comment: Testing | 65 - 99 mg/dL | [facility] | | | POC | performed at [facility];[address] | | LABORATORY | | | | [address];[place] | | | | | | [address] | | | | + + + + + + + + | Specimen | + + | | + + + + + + + | Performing | Address | City/State/Zipcode | Phone Number | | Organization | | | | + + + + + | [facility] | [address] | [place] [address] | [phone] | + + + + + POC [...] | | | POC | performed at [facility];[address] | | LABORATORY | | | | [address];[place] | | | | | | [address] | | | | + + + + + + + + | Specimen | + + | | + + + + + + + | Performing | Address | City/State/Zipcode | Phone Number | | Organization | | | | + + + + + | [facility] | [address] | [place] [address] | [phone] | + + + + + Parathyroid Hormone, Intraoperative (12/26/2019 4:25 AM PDT) + + + + + + | Component | Value | Ref Range | Performed | Pathologist | | | | | At | Signature | + + + + + + | PTH Intact | 167.0 (H)Comment: | 8.7 - 79.6 | [facility] | | | | Testing performed at | pg/mL | LABORATORY | | | | [facility];[address];[place] [address] | | | | + + + + + + + + | Specimen | + + | | + + + + + + + | Performing | Address | City/State/Zipcode | Phone Number | | Organization | | | | + + + + + | [facility] | [address] | [place] [address] | [phone] | + + + + + Renal [...] | | | | | performed at [facility], [address] | | | | | | [address], | | | | | | [place] [address] | | | | + + + + + + + + | Specimen | + + | Blood | + + + + + + + | Performing | Address | City/State/Zipcode | Phone Number | | Organization | | | | + + + + + | [facility] | [address] | [place] [address] | [phone] | + + + + + POC [...] | | | POC | performed at [facility];[address] | | LABORATORY | | | | [address];[place] | | | | | | [address] | | | | + + + + + + + + | Specimen | + + | | + + + + + + + | Performing | Address | City/State/Zipcode | Phone Number | | Organization | | | | + + + + + | [facility] | [address] | [place] [address] | [phone] | + + + + + POC Glucose (12/25/2019 5:13 PM PDT) + + + + + + | Component | Value | Ref Range | Performed | Pathologist | | | | | At | Signature | + + + + + + | Glucose, | 133 (H)Comment: Testing | 65 - 99 mg/dL | [facility] | | | POC | performed at [facility];[address] | | LABORATORY | | | | [address];[place] | | | | | | [address] | | | | + + + + + + + + | Specimen | + + | | + + + + + + + | Performing | Address | City/State/Zipcode | Phone Number | | Organization | | | | + + + + + | [facility] | [address] | [place] [address] | [phone] | + + + + + ECHO [...] | | | POC | performed at [facility];[address] | | LABORATORY | | | | [address];[place] | | | | | | [address] | | | | + + + + + + + + | Specimen | + + | | + + + + + + + | Performing | Address | City/State/Zipcode | Phone Number | | Organization | | | | + + + + + | [facility] | [address] | [place] [address] | [phone] | + + + + + POC Glucose (12/25/2019 7:56 AM PDT) + + + + + + | Component | Value | Ref Range | Performed | Pathologist | | | | | At | Signature | + + + + + + | Glucose, | 136 (H)Comment: Testing | 65 - 99 mg/dL | [facility] | | | POC | performed at [facility];[address] | | LABORATORY | | | | [address];[place] | | | | | | [address] | | | | + + + + + + + + | Specimen | + + | | + + + + + + + | Performing | Address | City/State/Zipcode | Phone Number | | Organization | | | | + + + + + | [facility] | [address] | [place] [address] | [phone] | + + + + + CK Total (12/25/2019 4:25 AM PDT) + + + + + + | Component | Value | Ref Range | Performed | Pathologist | | | | | At | Signature | + + + + + + | CK TOTAL | 104Comment: Testing | 55 - 400 U/L | [facility] | | | | performed at [facility];[address] | | LABORATORY | | | | [address];[place] | | | | | | [address] | | | | + + + + + + + + | Specimen | + + | Blood | + + + + + + + | Performing | Address | City/State/Zipcode | Phone Number | | Organization | | | | + + + + + | [facility] | [address] | [place] [address] | [phone] | + + + + + Renal [...] | | | | | performed at [facility], [address] | | | | | | [facility], | | | | | | [place] [address] | | | | + + + + + + + + | Specimen | + + | Blood | + + + + + + + | Performing | Address | City/State/Zipcode | Phone Number | | Organization | | | | + + + + + | [facility] | [address] | [place] [address] | [phone] | + + + + + Cytoplasmic [...] | | | | | performed by [facility], | | | | | | [address] [facility], | | | | | | [place] [address] | | | | + + + + + + + + | Specimen | + + | Blood | + + + + + + + | Performing | Address | City/State/Zipcode | Phone Number | | Organization | | | | + + + + + | [facility] | [address] | [place] [address] | [phone] | + + + + + Sedimentation [...] | | | | | [place] [address] | | | | + + + + + + + + | Specimen | + + | Blood | + + + + + + + | Performing | Address | City/State/Zipcode | Phone Number | | Organization | | | | + + + + + | [facility] | [address] | [place] [address] | [phone] | + + + + + Immunoglobulin, Free Light Chain (12/25/2019 4:22 AM PDT) + + + + + + | Component | Value | Ref Range | Performed | Pathologist | | | | | At | Signature | + + + + + + | [place] Free | 121.2 (H) | 3.3 - [...] + + + + + + | [place] | 1.25Comment: Testing | 0.26 - 1.65 | [facility] | | | a Free | performed at [facility] | | LABORATORY | | | Light Chain | [place], [address] | | | | | Ratio | [place] [address] | | | | + + + + + + + + | Specimen | + + | Blood | + + + + + + + | Performing | Address | City/State/Zipcode | Phone Number | | Organization | | | | + + + + + | [facility] | [address] | [place] [address] | [phone] | + + + + + Glomerular Basement Membrane Ab, IgG (12/25/2019 4:22 AM PDT) + + + + + + | Component | Value | Ref Range | Performed | Pathologist | | | | | At | Signature | + + + + + + | Antiglomeru | 2Comment: | 0 - 20 units | [facility] | | | lar BM Ab, [...] [place] | | | | | | [address] | | | | + + + + + + + + | Specimen | + + | Blood | + + + + + + + | Performing | Address | City/State/Zipcode | Phone Number | | Organization | | | | + + + + + | [facility] | [address] | [place] [address] | [phone] | + + + + + Hepatitis [...] Amplificationtest | | | | | | ([id number]).Testing | | | | | | performed at [facility], | | | | | | [address], | | | | | | [facility] [address] | | | | + + + + + + + + | Specimen | + + | Blood | + + + + + + + | Performing | Address | City/State/Zipcode | Phone Number | | Organization | | | | + + + + + | [facility] | [address] | [place] [address] | [phone] | + + + + + CK Total (12/25/2019 4:22 AM PDT) + + + + + + | Component | Value | Ref Range | Performed | Pathologist | | | | | At | Signature | + + + + + + | CK TOTAL | 100Comment: Testing | 55 - 400 U/L | [facility] | | | | performed at [facility];[address] | | LABORATORY | | | | [address];[place], [place] | | | | | | [address] | | | | + + + + + + + + | Specimen | + + | Blood | + + + + + + + | Performing | Address | City/State/Zipcode | Phone Number | | Organization | | | | + + + + + | [facility] | [address] | [place] [address] | [phone] | + + + + + Lactate Dehydrogenase (12/25/2019 4:22 AM PDT) + + + + + + | Component | Value | Ref Range | Performed | Pathologist | | | | | At | Signature | + + + + + + | LDH TOTAL | 154Comment: Testing | 120 - 246 U/L | [facility] | | | | performed at [facility];[address] | | LABORATORY | | | | [address];[place] | | | | | | [address] | | | | + + + + + + + + | Specimen | + + | Blood | + + + + + + + | Performing | Address | City/State/Zipcode | Phone Number | | Organization | | | | + + + + + | [facility] | [address] | [place] [address] | [phone] | + + + + + Magnesium (12/25/2019 4:22 AM PDT) + + + + + + | Component | Value | Ref Range | Performed | Pathologist | | | | | At | Signature | + + + + + + | Magnesium | 2.5 (H)Comment: Testing | 1.7 - 2.4 mg/dL | [facility] | | | | performed at [facility], [address] | | LABORATORY | | | | [address], | | | | | | [place] [address] | | | | + + + + + + + + | Specimen | + + | Blood | + + + + + + + | Performing | Address | City/State/Zipcode | Phone Number | | Organization | | | | + + + + + | [facility] | [address] | [place] [address] | [phone] | + + + + + Protein, [...] LABORATORY | | | | performed at [facility], [address] | | | | | | [address], | | | | | | [place] [address] | | | | + + + + + + + + | Specimen | + + | | + + + + + + + | Performing | Address | City/State/Zipcode | Phone Number | | Organization | | | | + + + + + | [facility] | [address] | [place] [address] | [phone] | + + + + + Creatinine, [...] | | | urine | performed at [facility], [address] | | | | | | [address], | | | | | | [place] [address] | | | | + + + + + + + + | Specimen | + + | | + + + + + + + | Performing | Address | City/State/Zipcode | Phone Number | | Organization | | | | + + + + + | [facility] | [address] [facility] | [place] [address] | [phone] | + + + + + Protein/Creatinine Ratio, Urine (12/25/2019 12:01 AM PDT) + + + + + + | Component | Value | Ref Range | Performed | Pathologist | | | | | At | Signature | + + + + + + | PRO/CREA | 0.942Comment: Testing | | [facility] | | | RATIO,URINE | performed at [facility], [address] | | LABORATORY | | | | [address], | | | | | | [place] [address] | | | | + + + + + + + + | Specimen | + + | Urine | + + + + + + + | Performing | Address | City/State/Zipcode | Phone Number | | Organization | | | | + + + + + | [facility] | [address] | [place] [address] | [phone] | + + + + + POC Glucose (12/24/2019 8:55 PM PDT) + + + + + + | Component | Value | Ref Range | Performed | Pathologist | | | | | At | Signature | + + + + + + | Glucose, | 149 (H)Comment: Testing | 65 - 99 mg/dL | [facility] | | | POC | performed at [facility];[address] | | LABORATORY | | | | [address];[place] | | | | | | [address] | | | | + + + + + + + + | Specimen | + + | | + + + + + + + | Performing | Address | City/State/Zipcode | Phone Number | | Organization | | | | + + + + + | [facility] | [address] | [place] [address] | [phone] | + + + + + POC Glucose (12/24/2019 5:14 PM PDT) + + + + + + | Component | Value | Ref Range | Performed | Pathologist | | | | | At | Signature | + + + + + + | Glucose, | 136 (H)Comment: Testing | 65 - 99 mg/dL | [facility] | | | POC | performed at [facility];[address] | | LABORATORY | | | | [address];[place], [place] | | | | | | [address] | | | | + + + + + + + + | Specimen | + + | | + + + + + + + | Performing | Address | City/State/Zipcode | Phone Number | | Organization | | | | + + + + + | [facility] | [address] | [place] [address] | [phone] | + + + + + ECG [...] | | | Arterial, | performed at [facility];[address] | | LABORATORY | | | POC | [address];[place] | | | | | | [address] | | | | + + + + + + + + | Specimen | + + | | + + + + + + + | Performing | Address | City/State/Zipcode | Phone Number | | Organization | | | | + + + + + | [facility] | [address] | [place] [address] | [phone] | + + + + + Coronavirus (COVID-19) TIA (12/24/2019 1:10 PM PDT) + + + + + + | Component | Value | Ref Range | Performed | Pathologist | | | | | At | Signature | + + + + + + | SARS-CoV-2, | NEGATIVEComment: Testing | NEG | [facility] | | | NAAT | performed at [facility];[address] | | LABORATORY | | | (COVID-19) | [address];[place], [place] | | | | | | [address] | | | | + + + + + + + + | Specimen | + + | Tissue - Entire | | nasopharynx (body | | structure) | + + + + + + + | Performing | Address | City/State/Zipcode | Phone Number | | Organization | | | | + + + + + | [facility] | [address] | [place] [address] | [phone] | + + + + + Culture, [...] LABORATORY | | | | Blvd;[place] [address] | | | | + + + + + + | RESULT | NO GROWTH 6 DAYS | | [facility] | | | | | | LABORATORY | | + + + + + + | RESULT | Testing performed at | | [facility] | | | | TCL, [address] | | LABORATORY | | | | [address] [place], [place] | | | | | | [address]Ecyupgx: Testing | | | | | | performed at [facility], [address] | | | | | | [facility], [place], [place] | | | | | | [address] | | | | + + + + + + + + | Specimen | + + | Blood - Peripheral | | blood specimen | | (specimen) | + + + + + + + | Performing | Address | City/State/Zipcode | Phone Number | | Organization | | | | + + + + + | [facility] | [address] | [place] [address] | [phone] | + + + + + Culture, [...] LABORATORY | | | | Blvd;[place] [address] | | | | + + + + + + | RESULT | NO GROWTH 6 DAYS | | [facility] | | | | | | LABORATORY | | + + + + + + | RESULT | Testing performed at | | [facility] | | | | TCL, [address] [facility] | | LABORATORY | | | | [address] [place], [place] | | | | | | [id number]: Testing | | | | | | performed at [facility], [address] | | | | | | [facility] [place], [place] | | | | | | [address] | | | | + + + [...] | [address] | [place] [address] | [phone] | + + + + + Urinalysis [...] - 1.030 | [facility] | | | [place], | | | LABORATORY | | | [...] | 1+ (A)Comment: Testing | NONE | [facility] | | | Urine | performed at [facility], [address] | | LABORATORY | | | | [address], | | | | | | [place] [address] | | | | + + + [...] | + + + + + | [facility] | [address] | [place] [address] | [phone] | + + + + + Sodium, [...] | | | urine | performed at [facility], [address] | | | | | | [address], | | | | | | [place] [address] | | | | + + + [...] | + + + + + | [facility] | [address] | [place] [address] | [phone] | + + + + + Creatinine, Urine, Random (12/24/2019 12:45 PM PDT) + + + + + + | Component | Value | Ref Range | Performed | Pathologist | | | | | At | Signature | + + + + + + | Creatinine, | 70.0Comment: NO NORMAL | mg/dL | [facility] | | | random | RANGE ESTABLISHEDTesting | | LABORATORY | | | urine | performed at [facility], [address] | | | | | | [address], | | | | | | [place] [address] | | | | + + + [...] | + + + + + | [facility] | [address] | [place] [address] | [phone] | + + + + + Lactic Acid (12/24/2019 12:27 PM PDT) + + + + + + | Component | Value | Ref Range | Performed | Pathologist | | | | | At | Signature | + + + + + + | Lactate, | 1.6Comment: Testing | 0.4 - 2.0 | [facility] | | | Serum | performed at [facility];[address] | mmol/L | LABORATORY | | | | [address] [facility];[place], [place] | | | | | | [address] | | | | + + + + + + + + | Specimen | + + | Blood | + + + + + + + | Performing | Address | City/State/Zipcode | Phone Number | | Organization | | | | + + + + + | [facility] | [address] | [place] [address] | [phone] | + + + + + Procalcitonin [...] | | | | | | at [facility];[address] [place] [address] | | | | | | [facility];[place] [address] | | | | + + + + + + + + | Specimen | + + | Blood | + + + + + + + | Performing | Address | City/State/Zipcode | Phone Number | | Organization | | | | + + + + + | [facility] | [address] | [place] [address] | [phone] | + + + + + POC Glucose (12/24/2019 12:25 PM PDT) + + + + + + | Component | Value | Ref Range | Performed | Pathologist | | | | | At | Signature | + + + + + + | Glucose, | 143 (H)Comment: Testing | 65 - 99 mg/dL | [facility] | | | POC | performed at [facility];[address] | | LABORATORY | | | | [address];[place] | | | | | | [address] | | | | + + + + + + + + | Specimen | + + | | + + + + + + + | Performing | Address | City/State/Zipcode | Phone Number | | Organization | | | | + + + + + | [facility] | [address] | [place] [address] | [phone] | + + + + + POC [...] | | | POC | performed at [facility];[address] | | LABORATORY | | | | [address];[place], [place] | | | | | | [address] | | | | + + + + + + + + | Specimen | + + | | + + + + + + + | Performing | Address | City/State/Zipcode | Phone Number | | Organization | | | | + + + + + | [facility] | [address] | [place] [address] | [phone] | + + + + + CBC [...] LABORATORY | | | | performed at [facility];[address] | | | | | | [address];[place] | | | | | | [address] | | | | + + + + + + + + | Specimen | + + | Blood | + + + + + + + | Performing | Address | City/State/Zipcode | Phone Number | | Organization | | | | + + + + + | [facility] | [address] | [place] [address] | [phone] | + + + + + Basic [...] | | | | | performed at [facility], [address] | | | | | | [facility], | | | | | | [place] [address] | | | | + + + + + + + + | Specimen | + + | Blood | + + + + + + + | Performing | Address | City/State/Zipcode | Phone Number | | Organization | | | | + + + + + | [facility] | [address] | [place] [address] | [phone] | + + + + + POC Glucose (12/23/2019 8:35 PM PDT) + + + + + + | Component | Value | Ref Range | Performed | Pathologist | | | | | At | Signature | + + + + + + | Glucose, | 135 (H)Comment: Testing | 65 - 99 mg/dL | [facility] | | | POC | performed at [facility];[address] | | LABORATORY | | | | [address];[place] | | | | | | [address] | | | | + + + + + + + + | Specimen | + + | | + + + + + + + | Performing | Address | City/State/Zipcode | Phone Number | | Organization | | | | + + + + + | [facility] | [address] [facility] | [place] [address] | [phone] | + + + + + POC Glucose (12/23/2019 4:35 PM PDT) + + + + + + | Component | Value | Ref Range | Performed | Pathologist | | | | | At | Signature | + + + + + + | Glucose, | 129 (H)Comment: Testing | 65 - 99 mg/dL | [facility] | | | POC | performed at [facility];[address] | | LABORATORY | | | | [address];[place] | | | | | | [address] | | | | + + + + + + + + | Specimen | + + | | + + + + + + + | Performing | Address | City/State/Zipcode | Phone Number | | Organization | | | | + + + + + | [facility] | [address] | [place] [address] | [phone] | + + + + + POC Glucose (12/23/2019 2:05 PM PDT) + + + + + + | Component | Value | Ref Range | Performed | Pathologist | | | | | At | Signature | + + + + + + | Glucose, | 158 (H)Comment: Testing | 65 - 99 mg/dL | [facility] | | | POC | performed at [facility];[address] | | LABORATORY | | | | [address];[place], [place] | | | | | | [address] | | | | + + + + + + + + | Specimen | + + | | + + + + + + + | Performing | Address | City/State/Zipcode | Phone Number | | Organization | | | | + + + + + | [facility] | [address] | [place] [address] | [phone] | + + + + + POC [...] | | | POC | performed at [facility];[address] | | LABORATORY | | | | [address];[place] | | | | | | [address] | | | | + + + + + + + + | Specimen | + + | | + + + + + + + | Performing | Address | City/State/Zipcode | Phone Number | | Organization | | | | + + + + + | [facility] | [address] | [place] [address] | [phone] | + + + + + Basic [...] 22 (L)Comment: GFR <60: | >60 | [facility] | | | GFR | CHRONIC [...] | | | | | | [facility]D [facility] traceable | | | | | | equation.Testing | | | | | | performed at [facility];[address] | | | | | | [address] [facility];[place], [place] | | | | | | [address] | | | | + + + + + + + + | Specimen | + + | Blood | + + + + + + + | Performing | Address | City/State/Zipcode | Phone Number | | Organization | | | | + + + + + | [facility] | [address] [facility] | [place] [address] | [phone] | + + + + + Phosphorus (12/23/2019 4:04 AM PDT) + + + + + + | Component | Value | Ref Range | Performed | Pathologist | | | | | At | Signature | + + + + + + | Phosphorus | 4.6Comment: Testing | 2.3 - 4.8 mg/dL | [facility] | | | | performed at [facility];[address] | | LABORATORY | | | | [address];[place] | | | | | | [address] | | | | + + + + + + + + | Specimen | + + | Blood | + + + + + + + | Performing | Address | City/State/Zipcode | Phone Number | | Organization | | | | + + + + + | [facility] | [address] | [place] [address] | [phone] | + + + + + Magnesium (12/23/2019 4:04 AM PDT) + + + + + + | Component | Value | Ref Range | Performed | Pathologist | | | | | At | Signature | + + + + + + | Magnesium | 2.1Comment: Testing | 1.7 - 2.4 mg/dL | [facility] | | | | performed at [facility];[address] | | LABORATORY | | | | [address];[place] | | | | | | [address] | | | | + + + + + + + + | Specimen | + + | Blood | + + + + + + + | Performing | Address | City/State/Zipcode | Phone Number | | Organization | | | | + + + + + | [facility] | [address] | [place] [address] | [phone] | + + + + + CBC [...] LABORATORY | | | | performed at [facility];[address] | | | | | | [address];[place], [place] | | | | | | [address] | | | | + + + + + + + + | Specimen | + + | Blood | + + + + + + + | Performing | Address | City/State/Zipcode | Phone Number | | Organization | | | | + + + + + | [facility] | [address] | [place] [address] | [phone] | + + + + + Hemoglobin (12/22/2019 9:37 PM PDT) + + + + + + | Component | Value | Ref Range | Performed | Pathologist | | | | | At | Signature | + + + + + + | Hemoglobin | 9.1 (L)Comment: Testing | 13.2 - 17.0 | [facility] | | | | performed at [facility];[address] | g/dL | LABORATORY | | | | [address];[place] | | | | | | [address] | | | | + + + + + + + + | Specimen | + + | Blood | + + + + + + + | Performing | Address | City/State/Zipcode | Phone Number | | Organization | | | | + + + + + | [facility] | [address] | [place] [address] | [phone] | + + + + + Hematocrit (12/22/2019 9:37 PM PDT) + + + + + + | Component | Value | Ref Range | Performed | Pathologist | | | | | At | Signature | + + + + + + | Hematocrit | 27.4 (L)Comment: Testing | 39.0 - 50.0 % | [facility] | | | | performed at [facility];[address] | | LABORATORY | | | | [address];[place] | | | | | | [address] | | | | + + + + + + + + | Specimen | + + | Blood | + + + + + + + | Performing | Address | City/State/Zipcode | Phone Number | | Organization | | | | + + + + + | [facility] | [address] | [place] [address] | [phone] | + + + + + POC [...] | | | POC | performed at [facility];[address] | | LABORATORY | | | | [address];[place], [place] | | | | | | [address] | | | | + + + + + + + + | Specimen | + + | | + + + + + + + | Performing | Address | City/State/Zipcode | Phone Number | | Organization | | | | + + + + + | [facility] | [address] | [place] [address] | [phone] | + + + + + POC [...] | | | POC | performed at [facility];[address] | | LABORATORY | | | | [address];[place] | | | | | | [address] | | | | + + + + + + + + | Specimen | + + | | + + + + + + + | Performing | Address | City/State/Zipcode | Phone Number | | Organization | | | | + + + + + | [facility] | [address] [facility] | [place] [address] | [phone] | + + + + + Red [...] | | LABORATORY | | | | Blvd;[place] [address] | | | | + + + + + + + + | Specimen | + + | | + + + + + + + | Performing | Address | City/State/Zipcode | Phone Number | | Organization | | | | + + + + + | [facility] | [address] | [place] [address] | [phone] | + + + + + POC Glucose (12/22/2019 10:38 AM PDT) + + + + + + | Component | Value | Ref Range | Performed | Pathologist | | | | | At | Signature | + + + + + + | Glucose, | 161 (H)Comment: Testing | 65 - 99 mg/dL | [facility] | | | POC | performed at [facility];[address] | | LABORATORY | | | | [address];[place] | | | | | | [address] | | | | + + + + + + + + | Specimen | + + | | + + + + + + + | Performing | Address | City/State/Zipcode | Phone Number | | Organization | | | | + + + + + | [facility] | [address] | [place] [address] | [phone] | + + + + + FL [place] (12/22/2019 10:28 AM PDT) + + | Specimen | + + | | + + + + + | Impressions | Performed At | + + + | Fluoroscopic service for right hip fixation. This report is for | [facility] | | radiation documentation purposes only. Signed by: Denis, | | | Eliezer Lindesy Sign Date/Time: 12/22/2019 10:44 AM | | + + + + + + | Narrative | Performed At | + + + | FLUOROSCOPY C ARM CLINICAL INFORMATION: NAILING IM EBTSY FEMUR | [facility] | | - [...] | | | POC | performed at [facility];888 | g/dL | LABORATORY | | | | [address];[place], [place] | | | | | | [address] | | | | + + + + + + + + | Specimen | + + | | + + + + + + + | Performing | Address | City/State/Zipcode | Phone Number | | Organization | | | | + + + + + | [facility] | [address] | [place] [address] | [phone] | + + + + + POC ISELLA, CG8, Arterial (12/22/2019 9:23 AM PDT) + + + + + + | Component | Value | Ref Range | Performed | Pathologist | | | | | At | Signature | + + + + + + | pH, | 7.314 (L) | 7.350 - 7.450 | [facility] | | | Arterial, | | [...] | | | POC | performed at [facility];888 | g/dL | LABORATORY | | | | [address];[place] | | | | | | [address] | | | | + + + + + + + + | Specimen | + + | | + + + + + + + | Performing | Address | City/State/Zipcode | Phone Number | | Organization | | | | + + + + + | [facility] | [address] | [place] [address] | [phone] | + + + + + POC [...] | | | POC | performed at [facility];888 | g/dL | LABORATORY | | | | [address];[place], [place] | | | | | | [address] | | | | + + + + + + + + | Specimen | + + | | + + + + + + + | Performing | Address | City/State/Zipcode | Phone Number | | Organization | | | | + + + + + | [facility] | [address] | [place] [address] | [phone] | + + + + + NATHANAEL [...] | | | POC | performed at [facility];888 | g/dL | LABORATORY | | | | [address];[place] | | | | | | [address] | | | | + + + + + + + + | Specimen | + + | | + + + + + + + | Performing | Address | City/State/Zipcode | Phone Number | | Organization | | | | + + + + + | [facility] | [address] | [place] [address] | [phone] | + + + + + Type [...] + + + | BB BAND | [id number] | | [facility] | | | | | | LABORATORY | | + + + + + + | UNIT # | [id number] | | [facility] | | | | [...] | | | RESULT | performed at [facility];[address] | | LABORATORY | | | | [address];[place] | | | | | | [address] | | | | + + + + + + | UNIT # | [id number] | | [facility] | | | | [...] | + + + + + | [facility] | [address] | [place] [address] | [phone] | + + + + + POC Glucose (12/22/2019 5:35 AM PDT) + + + + + + | Component | Value | Ref Range | Performed | Pathologist | | | | | At | Signature | + + + + + + | Glucose, | 155 (H)Comment: Testing | 65 - 99 mg/dL | [facility] | | | POC | performed at [facility];[address] | | LABORATORY | | | | [address];[place] | | | | | | [address] | | | | + + + + + + + + | Specimen | + + | | + + + + + + + | Performing | Address | City/State/Zipcode | Phone Number | | Organization | | | | + + + + + | [facility] | [address] | [place] [address] | [phone] | + + + + + Protime INR (12/22/2019 5:26 AM PDT) + + + + + + | Component | Value | Ref Range | Performed | Pathologist | | | | | At | Signature | + + + + + + | INR | 1.2Comment: REFERENCE | | [facility] | | | | RANGE:0.9 - [...] | | | | | performed at [facility];[address] | | | | | | [address];[place], [place] | | | | | | [address] | | | | + + + + + + + + | Specimen | + + | Blood | + + + + + + + | Performing | Address | City/State/Zipcode | Phone Number | | Organization | | | | + + + + + | [facility] | [address] | [place] [address] | [phone] | + + + + + CBC [...] | | | Absolute | performed at [facility], [address] | K/uL | LABORATORY | | | | [address], | | | | | | [place] [address] | | | | + + + + + + + + | Specimen | + + | Blood | + + + + + + + | Performing | Address | City/State/Zipcode | Phone Number | | Organization | | | | + + + + + | [facility] | [address] | [place] [address] | [phone] | + + + + + Magnesium [...] | | | | | [place] [address] | | | | + + + + + + + + | Specimen | + + | Blood | + + + + + + + | Performing | Address | City/State/Zipcode | Phone Number | | Organization | | | | + + + + + | [facility] | [address] | [place] [address] | [phone] | + + + + + Basic [...] | | | | | performed at [facility], [address] | | | | | | [facility], | | | | | | [place] [address] | | | | + + + + + + + + | Specimen | + + | Blood | + + + + + + + | Performing | Address | City/State/Zipcode | Phone Number | | Organization | | | | + + + + + | [facility] | [address] | [place] [address] | [phone] | + + + + + POC [...] | | | POC | performed at [facility];[address] | | LABORATORY | | | | [address];[place], [place] | | | | | | [address] | | | | + + + + + + + + | Specimen | + + | | + + + + + + + | Performing | Address | City/State/Zipcode | Phone Number | | Organization | | | | + + + + + | [facility] | [address] | [place] [address] | [phone] | + + + + + POC Glucose (12/21/2019 9:11 PM PDT) + + + + + + | Component | Value | Ref Range | Performed | Pathologist | | | | | At | Signature | + + + + + + | Glucose, | 182 (H)Comment: Testing | 65 - 99 mg/dL | [facility] | | | POC | performed at [facility];[address] | | LABORATORY | | | | [address];[place] | | | | | | [address] | | | | + + + + + + + + | Specimen | + + | | + + + + + + + | Performing | Address | City/State/Zipcode | Phone Number | | Organization | | | | + + + + + | [facility] | [address] | [place] [address] | [phone] | + + + + + documented [...] | | | | | | | 8248-1401 Use NIGHT DOSE for | | | | | | | doses scheduled: HS, | | | | | | | Nighttime [id number] If the BG is | | | [...]
--- OUTSIDE RECORDS SUMMARY | ~2020-03-21 | XMS | Encounter Summary ---
Demographics + + + | Address | [address] | | | [place] [address] | + + + | Home Phone [...] [place] | | | | | [address] | | + + + + + | Deanna Lawson | ECON | Unknown | | + + + + + Care Team Providers + +------+ + | Care Integration Aide Name | Role | Phone | [...] + + | 01/26/ | Documentati | [facility] | Nelson, | Other (PCP progress | | 2020 | on | NEPHROLOGY JESSI | Kita Sterling | note 01/23/20) | | | | [address] | Slot Operations Manager | | | | | [address] [place] | | | | | | [address] | | | | | | [phone] | | | +--------+ + + + [...] [address] | | | | | | [place] [address] | | | | | | [phone] | | | | | | | | +--------+ + + + + | 03/24/ | Hospital | | Anna Edouard, | Esophagitis | | 2019 | Encounter | | MD [address] | | | | | | [place] [address] | | | | | | [phone] | | | | | | | | +--------+ + + + + | 03/24/ | Surgery | | Anna Edouard, | EGD | | 2019 | | | MD [address] | | | | | | [place] [address] | | | | | | [phone] | | | | | | | | +--------+ + + + + | 03/31/ | Office | Orthopedic Surgery | Melquiades Baez | | | 2019 | Visit | | [address] | | | | | | [place], | | | | | | [place] [address] | | | | | | [phone] | | | | | | | | +--------+ + + + + | 04/21/ | Office | Nephrology | Isiah Jade MD | | | 2019 | Visit | | [address] | | | | | | [address] [place] [address] | | | | | | [address] | | | | | | | | +--------+ + + + + | 05/07/ | Office | Cardiology | Charlee Oswald | | | 2020 | Visit | | [address] | | | | | | [place] | | | | | | [place] [address] | | | | | | [phone] | | | | | | | | +--------+ + + + + documented as of this encounter Visit Diagnoses Not on filedocumented in this encounter"
--- OUTSIDE RECORDS SUMMARY | ~2020-03-21 | XMS | Encounter Summary ---
Demographics + + + | Address | [address] | | | [place] [address] | + + + | Home Phone [...] [place] | | | | | [address] | | + + + + + | Deanna Lawson | ECON | Unknown | | + + + + + Care Team Providers + +------+ + | Care Technical Adjuster Name | Role | Phone | [...] + + | 03/20/ | Telephone | [facility] | Anna Canas, | Pre-Procedure (CALL) | | 2019 | | GASTROENTEROLOGY | [address] | | | | | [address] | [place] [address] | | | | | [place], [place] | [phone] | | | | | [address] | | | | | | [phone] | | | +--------+ + + + [...] this encounter Miscellaneous Notes Telephone Encounter - aRissa Dawkins Product Safety Head - 03/20/2020 9:25 AM PDTCalled patient and [...] clinic. To also have a res ponsible ambulance driver someone over 18 years old. If any questions or concerns please call our clin ic at [phone]. Procedure: EGD Procedure Date: 03/24/20 Procedure Time: 1:04 PM Arrival time: 10:00 A.M (was informed pt is to arrive 3 hours sooner to have COVID test don e) Facility: [facility] ([facility]: [address] [place] [address], NUMBER TO [place] E-REG #[phone] OPTION: 4) Provider: DR. CANAS Has pt [...] | | | | | [place] [address] | | | | | | [phone] | | | | | | | | +--------+ + + + + | 03/24/ | Hospital | | Anna Canas, | Esophagitis | | 2020 | Encounter | | [address] | | | | | | [place] [address] | | | | | | [phone] | | | | | | | | +--------+ + + + + | 03/24/ | Surgery | | Anna Canas, | EGD | | 2020 | | | MD [address] | | | | | | [place] [address] | | | | | | [phone] | | | | | | | | +--------+ + + + + | 03/31/ | Office | Orthopedic Surgery | Melquiades Baez | | | 2019 | Visit | | [address] | | | | | | [facility] | | | | | | [place] [address] | | | | | | [phone] | | | | | | | | +--------+ + + + + | 04/21/ | Office | Nephrology | Isiah Jade MD | | | 2019 | Visit | | [address] [facility] | | | | | | [address] [place] | | | | | | [address] | | | | | | | | +--------+ + + + + | 05/07/ | Office | Cardiology | Charlee Oswald | | | 2019 | Visit | | [address] | | | | | | [address] | | | | | | [place] [address] | | | | | | [phone] | | | | | | | | +--------+ + + + + documented as of this encounter Visit Diagnoses Not on filedocumented in this encounter"
--- OUTSIDE RECORDS SUMMARY | ~2020-03-21 | XMS | Encounter Summary ---
Demographics + + + | Address | [address] | | | [place] [address] | + + + | Home Phone [...] [place] | | | | | [address] | | + + + + + | Deanna Lawson | ECON | Unknown | | + + + + + Care Team Providers + +------+ + | Care Associate Professor Of Church Music Name | Role | Phone | + +------+ + | Barbara Gimlan MD | PCP | | + +------+ + Encounter Details +--------+ + + + + | Date | Type | Department | Care Team | Description | +--------+ + + + + | 01/20/ | Hospital | [facility] | Melquiades Baez | Right hip pain | | 2019 | Encounter | [address] | [address] | | | | | [address] | [address] [place], | | | | | [place], [place] | [place] [address] | | | | | [address] | [phone] | | | | | [phone] | | | +--------+ + + + [...] | | | | | [place] [address] | | | | | | [phone] | | | | | | | | +--------+ + + + + | 03/24/ | Hospital | | Anna Edouard, | Esophagitis | | 2019 | Encounter | | MD [address] | | | | | | [place] [address] | | | | | | [phone] | | | | | | | | +--------+ + + + + | 03/24/ | Surgery | | Anna Edouard | EGD | | 2019 | | | [address] | | | | | | [place] [address] | | | | | | [phone] | | | | | | | | +--------+ + + + + | 03/31/ | Office | Orthopedic Surgery | Melquiades Baez | | | 2019 | Visit | | [address] | | | | | | [place], | | | | | | [place] [address] | | | | | | [phone] | | | | | | | | +--------+ + + + + | 04/21/ | Office | Nephrology | Isiah Jade MD | | | 2019 | Visit | | [address] | | | | | | [address] [place] | | | | | | [address] | | | | | | | | +--------+ + + + + | 05/07/ | Office | Cardiology | Charlee Oswald | | | 2019 | Visit | | [address] | | | | | | [place] | | | | | | [place] [address] | | | | | | [phone] | | | | | | | [...] Baez DO has created this entry using [employer] | | | Recognition software and [email or web address] macros. The entry has been reviewed | | | and there may still exist sound alike word errors. | | | | | |Electronically signed by: Melquiades Baez DO 01/24/2020 1:05 PM | | | | | | | | |Melquiades Baez DO has created this entry using [employer] | | |Recognition software and [email or web address] macros. The entry has been reviewed and [...]
--- OUTSIDE RECORDS SUMMARY | ~2020-03-21 | XMS | Encounter Summary ---
Demographics + + + | Address | [address] | | | [place] [address] | + + + | Home Phone [...] [place] | | | | | [address] | | + + + + + | Deanna Lawson | ECON | Unknown | | + + + + + Care Team Providers + +------+ + | Care Assistant Professor Of Biology Name | Role | Phone | + +------+ + | Barbara Gilman MD | PCP | | + +------+ + Encounter Details +--------+---------+ + + + | Date | Type | Department | Care Team | Description | +--------+---------+ + + + | 01/29/ | Office | [facility] | Isiah Jade MD | ATN (acute tubular | | 2020 | Visit | NEPHROLOGY [place] | [address] [place] | necrosis) (HCC) | | | | [address] [place] | [address] [place], [place] | (Primary Dx); CKD | | | | [address] [place], [place] | [address] | (chronic kidney | | | | [address] | | disease) stage 3, | | | | [phone] | | GFR 30-59 ml/min | | | | | | ([facility]); Hypertension | | | | | | [...] | | | | | | ([facility]ERLY [facility]); 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 | | | | | | failure, stage 3 | | | | | | (moderate) ([facility]); | | | | | | Secondary | | | | | | hyperparathyroidism | | | | | | ([facility]); Bilateral leg | | | | | [...] | | | | | [place] [address] | | | | | | [phone] | | | | | | | | +--------+ + + + + | 03/24/ | Hospital | | Anna Edouard, | Esophagitis | | 2020 | Encounter | | MD [address] | | | | | | [place] [address] | | | | | | [phone] | | | | | | | | +--------+ + + + + | 03/24/ | Surgery | | Anna Edouard | EGD | | 2019 | | | [address] | | | | | | [place] [address] | | | | | | [phone] | | | | | | | | +--------+ + + + + | 03/31/ | Office | Orthopedic Surgery | Melquiades Baez | | | 2019 | Visit | | [address] | | | | | | [place], | | | | | | [place] [address] | | | | | | [phone] | | | | | | | | +--------+ + + + + | 04/21/ | Office | Nephrology | Isiah Jade MD | | | 2019 | Visit | | [address] [facility] [address] | | | | | | [place] | | | | | | [address] | | | | | | | | +--------+ + + + + | 05/07/ | Office | Cardiology | Charlee Oswald | | | 2020 | Visit | | [address] | | | | | | [address] | | | | | | [place] [address] | | | | | | [phone] | | | | | | | | +--------+ + + + + documented as of this encounter Visit Diagnoses + + | Diagnosis | + + | ATN (acute tubular necrosis) (HCC) - Primary Acute kidney failure with lesion of | | tubular necrosis | + + | CKD (chronic kidney disease) stage 3, GFR 30-59 ml/min ([facility]) Chronic kidney disease, | | Stage III (moderate) | + + | Hypertension goal BP (blood pressure) < 140/80 Unspecified essential hypertension | + + | Type 2 diabetes mellitus with diabetic nephropathy, without long-term current use of | | insulin ([facility]) | + + | Anemia of chronic kidney failure, stage 3 (moderate) ([facility]) | + + | Secondary hyperparathyroidism ([facility]) Secondary hyperparathyroidism (of renal origin) | + + | Bilateral leg edema Edema | + + | Electrolyte imbalance risk Other specified conditions influencing health status | + + | Esophagitis - Primary Esophagitis, unspecified | + + | Esophagitis Esophagitis, unspecified | + + documented in this encounter
--- OUTSIDE RECORDS SUMMARY | ~2020-03-21 | XMS | Encounter Summary ---
Demographics + + + | Address | [address] | | | [place] [address] | + + + | Home Phone [...] | [facility] | | | and [...] [place] | | | | | [address] | | + + + + + | Deanna Lawson | ECON | Unknown | | + + + + + Care Team Providers + +------+ + | Care Traffic Agent Name | Role | Phone | + +------+ + PCP | Unavailable | + +------+ + Encounter Details +--------+ + + + + | Date | Type | Department | Care Team | Description | +--------+ + + + + | 02/04/ | Hospital | [facility] | Conversion | Presence of cardiac | | 2019 | Encounter | CENTER [facility] OP | Transaction, | pacemaker; Permanent | | | | [address] | Provider Unknown | atrial fibrillation | | | | [place], [place] | [phone] | (HCC); Chronic | | | | [address]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 | | | | [phone] | Enoch Marks MD | failure ([facility]); | | | | | [address] | Pacemaker at end of | | | | | [place], [place] | battery life | | | | | [address] | | | | | | | [...] Surgery Author Type: Registered Nurse Filed: 02/04/19 7360 Date of Service: 02/04/19 1430 Status: Signed Cafe Site Attendant: Sendy Smith RN (Registered Nurse) Patient discharged [...] H&P by Enoch Marks MD at 02/03/19 9055 Author: Enoch Marks MD Service: Specialist Author Type: Physician Filed: 02/04/19 1252 Date of Service: 02/03/191735 Status: Addendum Cafe Site Attendant: Enoch Marks MD (Physician) Related Notes: Original Note by Enoch Marks MD (Physician) filed at 02/04/19 1228 [facility] Service: Electrophysiology Update to Pre-Operative History & [...] Guzmán : 1930: AGE: 88 y.o. Phone- [phone] (home) PRIMARY CARE: Barbara Gilman Requesting Physician: Barbara Gilman MD [address] [place], [place] [id number] SUMMARY OF EP RECOMMENDATIONS Patient Active Problem [...] mild concentric LVH. He has a single-chamber [employer] ventricular pacemaker mayelin t is nearing elective replacement indicator status. He has been pacing the right ventricle 9 9% of the time. Anticoagulated with apixaban. He has only been taking 2.5 mg twice per day, because of renal dysfunction and age. day. The chads 2 vascular score is 4. 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 He has a [employer] Altrua single-chamber RV pacemaker that was [...] (two) times daily., Di sp: , Rfl: Cdbvetb-Tuyrnxggm-Drnuzol D 600-40-500 MG-MG-UNIT TB24, Take 1,200 mg [...] | | | | | [place] [address] | | | | | | [phone] | | | | | | | | +--------+ + + + + | 03/24/ | Hospital | | Anna Edouard, | Esophagitis | | 2019 | Encounter | | MD [address] | | | | | | [place] [address] | | | | | | [phone] | | | | | | | | +--------+ + + + + | 03/24/ | Surgery | | Anna Edouard | VANDANA | | 2019 | | | [address] | | | | | | [place] [address] | | | | | | [phone] | | | | | | | | +--------+ + + + + | 03/31/ | Office | Orthopedic Surgery | Melquiades Baez | | | 2019 | Visit | | DO [address] | | | | | | [place], | | | | | | [place] [address] | | | | | | [phone] | | | | | | | | +--------+ + + + + | 04/21/ | Office | Nephrology | Isiah Jade MD | | | 2019 | Visit | | [address] [facility] | | | | | | [address] [place] | | | | | | [address] | | | | | | | | +--------+ + + + + | 05/07/ | Office | Cardiology | TatoleenaCharlee | | | 2019 | Visit | | [address] | | | | | | [address] | | | | | | [place] [address] | | | | | | [phone] | | | | | | | [...] will be seen in one week in [facility] | | | by ENEDINA Bo. Read [...] | | indicator status. 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 He has felt poorly over the last few | | | weeks since the device went into an MIRIAN mode. The current lead is | | | a [employer] model 4136, serial #[id number]. The current | | | pacemaker is a [employer] model S601, serial #[id number]. He is | | | anticoagulated and [...] The lead was attached to a new [employer] | | | Accolade MRI compatible model L310, serial #[id number] pacemaker. That | | | device was [...] indicator | | status. 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 He | | has felt poorly over the last few weeks since the device went into an MIRIAN | | mode. The current lead is a [employer] model 4136, serial | | #[id number]. The current pacemaker is a [employer] model S601, serial | | #[id number]. He is anticoagulated and the last dose [...] The lead was attached to a new [employer] | | Accolade MRI compatible model L310, serial #[id number] pacemaker. That device | | was placed [...] seen in one | | week in [facility] by ENEDINA Bo. | | | | [...] | | | Fingerstick | performed at [facility];[address] | | LAB | | | | [address];[place] | | | | | | [address] | | | | + + + [...] | | | Basophils | performed at [facility];[address] | [address] | LAB | | | | [address];[place], [place] | | | | | | [address] | | | | + + + [...] | | | | | performed at [facility];[address] | | | | | | [address] [facility];[place], [place] | | | | | | [address] | | | | + + + [...]
--- OUTSIDE RECORDS SUMMARY | ~2020-03-21 | XMS | Encounter Summary ---
Demographics + + + | Address | [address] | | | [place] [address] | + + + | Home Phone [...] [place] | | | | | [address] | | + + + + + | Deanna Lawson | ECON | Unknown | | + + + + + Care Team Providers + +------+ + | Care Java Performance Engineer Name | Role | Phone | [...] | | | mellitus | [address]VD | [facility], | | | | | with other | [place] | [place] | | | | | diabetic | [address] | [address] | | | | | kidney | Phone: | Phone: | | | | | complication | [phone] | [phone] | | | | | (HCC) | Fax: | Fax: | | | | | Chronic | [phone] | [phone] | | | | | diastolic | [...] EDUARDO | [facility], | Orthopedic | | | | [address] [facility] [facility] | [place] [address] | aftercare; Closed | | | | [place], [place] | [phone] | fracture of right | | | | [address] | | hip with routine | | | | [phone] | | healing, subsequent | | | [...] Melquiades Baez, - 02/18/2020 1:10 PM PDT [facility] [...] Baez DO has created this entry using [employer] Voice Recognition software and [employer] macros. The entry has been reviewed and [...] [address] | | | | | | [place] [address] | | | | | | [phone] | | | | | | | | +--------+ + + + + | 03/24/ | Hospital | | Anna Edouard, | Esophagitis | | 2019 | Encounter | | MD [address] | | | | | | [place] [address] | | | | | | [phone] | | | | | | | | +--------+ + + + + | 03/24/ | Surgery | | Anna Edouard, | EGD | | 2019 | | | MD [address] | | | | | | [place] [address] | | | | | | [phone] | | | | | | | | +--------+ + + + + | 03/31/ | Office | Orthopedic Surgery | Melquiades Baez | | | 2019 | Visit | | DO [address] | | | | | | [place] | | | | | | [place] [address] | | | | | | [phone] | | | | | | | | +--------+ + + + + | 04/21/ | Office | Nephrology | Isiah Jade MD | | 2019 | Visit | | [address] | | | | | | [address] [place] | | | | | | [address] | | | | | | | | +--------+ + + + + | 05/07/ | Office | Cardiology | Charlee Oswald | | 2019 | Visit | | [address] | | | | | | [address] | | | | | | [place] [address] | | | | | | [phone] | | | | | | | [...] created this | | | entry using [employer] Recognition software and [employer] | | | macros. The entry has been reviewed and there may still exist sound | | | alike word errors. | | | | | |Electronically signed by: Melquiades Baez DO 02/18/2020 1:54 PM PDT | | | | | | | | |Melquiades Baez DO has created this entry using [employer] | | |Recognition software and [employer] macros. The entry has been reviewed and [...]
--- OUTSIDE RECORDS SUMMARY | ~2020-03-21 | XMS | Encounter Summary ---
Demographics + + + | Address | [address] | | | [place] [address] | + + + | Home Phone [...] [place] | | | | | [address] | | + + + + + | Deanna Lawson | ECON | Unknown | | + + + + + Care Team Providers + +------+ + | Care Local Area Network Systems Adminstrator Name | Role | Phone | + [...] [address] | | | | | [place], [place] | [place] [address] | | | | | [address] | [phone] | | | | | [phone] | | | +--------+ + + + [...] | | | | | [place] [address] | | | | | | [phone] | | | | | | | | +--------+ + + + + | 03/24/ | Hospital | | Anna Edouard, | Esophagitis | | 2020 | Encounter | | MD [address] | | | | | | [place] [address] | | | | | | [phone] | | | | | | | | +--------+ + + + + | 03/24/ | Surgery | | Anna Edouard | EGD | | 2019 | | | [address] | | | | | | [place] [address] | | | | | | [phone] | | | | | | | | +--------+ + + + + | 03/31/ | Office | Orthopedic Surgery | Melquiades Baez | | | 2019 | Visit | | DO [address] | | | | | | [place], | | | | | | [place] [address] | | | | | | [phone] | | | | | | | | +--------+ + + + + | 04/21/ | Office | Nephrology | Isiah Jade MD | | 2019 | Visit | | [address] [facility] | | | | | | [address] | | | | | | [address] | | | | | | | | +--------+ + + + + | 05/07/ | Office | Cardiology | Charlee Oswald | | | 2020 | Visit | | [address] | | | | | | [address] | | | | | | [place] [address] | | | | | | [phone] | | | | | | | [...] TR Vmax: 3.45 m/s | | | Mortgage Loan Officer Originator: DAR Authenticated by: Vikki Godoy Report | | | Date/Time: -- [id number]:[id number] | | + + + + ------+ [...] cmLVPWd: 0.86 cmLVOT Area: | | 3.66 [id number] Diam: 2.15 cm%FS: 30.74 %EF(Teich): 57.74 %ESV(Teich): [...] mlLAESV Index (A-L): 55.88 ml/m2LAAs A2C: 25.46 [id number] A-L | | A2C: 88.15 mlLALs A2C: 6.24 cmLAAs A4C: 29.53 sr3KZSPA A-L A4C: 110.72 mlLALs | | A4C: 6.68 cmRAAs: 31.00 fi6WTWHE A-L: 119.55 mlRAESV MOD: 117.88 mlRALs: 6.82 | | cmTAPSE: 1.87 cmAV maxP.43 mmHgAV meanP.22 mmHgAV Vmax: 1.05 m/Armen | | Vmean: 0.69 m/Armen VTI: 18.19 cmAVA Vmax: 2.31 cm2AVA (VTI): 2.75 ah2NIIB Vmax: | | 0.00 cm2/m2AVAI (VTI): 0.00 cm2/m2LVOT maxP.76 mmHgLVOT meanP.05 mmHgLVSI | | Dopp: 27.38 ml/m2LVSV Dopp: 50.12 mlLVOT Vmax: 0.66 m/sLVOT Vmean: 0.48 m/sLVOT | | VTI: 13.68 cmMV A Good: 0.02 m/sMV DecT: 135.32 msMV E Good: 0.84 m/sMV E/A | | Ratio: 38.78MV PHT: 39.24 msMVA By PHT: 5.60 is9Fnbijs e': 0.03 m/sSeptal E/e': | | 21.63Lateral e': 0.08 m/sLateral E/e': 10.19RAP: 15 mmHgRVSP: 62.86 mmHgTR | | maxP.86 mmHgTR Vmax: 3.45 m/s Mortgage Loan Officer Originator: Rodolfoticated by: Jayne | | [facility] Date/Time: -- [id number]:23:50 IMPRESSION: 1. The left ventricle is | [...] |TR Vmax: 3.45 m/s | | | |Mortgage Loan Officer Originator: DH | |Authenticated by: Vikki Godoy | |Report Date/Time: [id number]:23:50 | | | |IMPRESSION: | |1. The [...]
--- OUTSIDE RECORDS SUMMARY | ~2020-03-21 | XMS | Encounter Summary ---
Demographics + + + | Address | [address] | | | [place] [address] | + + + | Home Phone | | + + + | Preferred Language | Unknown | + + + | Marital Status | | + + + | Confucianism Affiliation | 1001 | + + + | Race | Unknown | + + + | Ethnic Group | Unknown | + + + Author + + + | Author | [facility] | | | and [place] | + + + | Organization | [facility] | | | and [...] [place] | | | | | [address] | | + + + + + | Deanna Lawson | ECON | Unknown | | + + + + + Care Team Providers + +------+ + | Care Clinical Engineering Manager Name | Role | Phone | [...] IM BETSY FEMUR | | 2019 | [facility] | DO [address] | - GAMMA NAIL | | | | OPERATING ROOM [address] | [facility], | | | | | [address] | [place] [address] | | | | | [place], [place] | [phone] | | | | | [address] | | | | | | [phone] | | | +--------+---------+ + + + [...] was on board. No immediate indication for HUMANITIES AND LANGUAGES PROFESSOR. Patient was also seen by physical therapy and occupational therapy and was recommended for discharging to [facility]. However patient will b e going to [facility] at this time. Patient also had [...] No CVA tenderness, no spinal tenderness Disposition: [facility] Condition: Fair No discharge procedures on [...] BUNCREARATIO 30 01/01/2020 PTH 72.57 (A) 04/01/2019 [id number] 25.2 (L) 12/27/2019 CALCIUM 8.6 01/01/2020 PHOS [...] been following up with ENEDINA mena in [place]. He has unrecovered acute kidney injury and a higher baseline creatinine. At this time there is no clinical uremia, refractory volume overload, refractory acidosis, refractory hyperkalemia and no urgent indication of starting HUMANITIES AND LANGUAGES PROFESSOR. Neither is there an indication for [...] Incentive spirometry. Transfuse Prn. No indication for HUMANITIES AND LANGUAGES PROFESSOR for now. Await renal recovery. On [...] was completed later after rounds. Dictation software, [employer], was used which may contain error for [...] but not limited to potential need for HUMANITIES AND LANGUAGES PROFESSOR . This is a patient with [...] is waiting downstairs. Deanna Doe RN, CMSRN, [facility] Inpatient Wound Ostomy Care [phone] 01/01/2020 11:46 AM Chai, Savana Irving RN [...] BUNCREARATIO 25 12/31/2019 PTH 72.57 (A) 04/01/2019 [id number] 25.2 (L) 12/27/2019 CALCIUM 8.5 12/31/2019 PHOS [...] been following up with ENEDINA mena in [place]. He has unrecovered acute kidney injury and a higher baseline creatinine. At this time there is no clinical uremia, refractory volume overload, refractory acidosis, refractory hyperkalemia and no urgent indication of starting HUMANITIES AND LANGUAGES PROFESSOR. Neither is there an indication for [...] Incentive spirometry. Transfuse Prn. No indication for HUMANITIES AND LANGUAGES PROFESSOR for now. Await renal recovery. I [...] was completed later after rounds. Dictation software, [employer], was used which may contain error for [...] but not limited to potential need for HUMANITIES AND LANGUAGES PROFESSOR . This is a patient with [...] wound RN note for treatment. [facility] ed, continue wound care at swing bed, send with extra dressing supplies. *Metabolic bone disorder: elevated PTH and phosphorus. Treatment per councilor (see thei r note). Subjective No chest [...] who was admitted as a transfer from [facility] due t o a mechanical [...] placement and he was accepted by [facility] in [place], [place] for rehabilitation purposes. Hospital stay was [...] Medications Current Facilty-Administered PRN Medications Ordered in [facility] Medication Dose Route Frequency Provider Last Rate Last Dose acetaminophen (TYLENOL) tablet 500 mg 500 mg Oral Once PRN Maco Wolf CRNA Or acetaminophen (TYLENOL) 160 mg/5 mL liquid 500 mg 500 mg Oral Once PRN Maco Wofl CRNA Or acetaminophen (TYLENOL) suppository 650 mg [...] but remains week, he is accepted at [facility] in [place] with discharge plans tomorrow for rehabilit ation [...] discharge plans to Sw[facility] Bed Program in [facility] tomorrow. DVT prophylaxis with SCD's only due to risks of bleeding. Discharge plans tomorrow to [facility] in [place], [place] for rehabi litation. Called his daughter Ms. Huerta and left a message with updated information at phone number [phone]. Jerry Chino MD 12/30/2019 turgill, DALILA Keys - 12/30/2019 12:35 PM PDTFormatting of this note might be different from the [facility] Service: Gastroenterology Consult Progress Note Hospital Day: LOS: 9 days SUBJECTIVE Patient Summary: This is an 89-year-old male with multiple medical problems and a his tory of hypertension, diabetes, CKD stage III who was transferred from [facility] t o a fall [...] Infusions dextrose 10% pantoprazole 8 mg/hr (12/30/19 0962) PRN Medications acetaminophen OR acetaminophen OR acetaminophen, [...] motor deficits. PSYCHIATRIC: Appropriate, affect appears normal [facility] Gastroenterology Patient Name: Andres Guzmán Procedure Date: [...] physician, the nurse, the anesthesiologist and the technician support engineer in the pre-procedure area in the procedure [...] successful. Thermal coagulation with Gold probe 7 Mozambican x 5 pulses was successful with hemostasis. [...] hemoglobin q 6 hours for one day. ALMONT HERNANDEZ MD 12/29/2019 10:19:54 AM This report has been signed electronically. Note Initiated On: 12/29/2019 8:36 AM Number of Addenda: 0 [facility] DATA Lab Results Component Value Date WBC [...] ll with any questions. Florina Cantu PA-C [facility] Gastroenterology 12/30/2019 Associated attestation - Lamont Hernandez MD - 12/31/2019 2:17 PM [id number] male with GI bleeding due to duodenal ulcer with visible vessel. The ulcer and visible vessel were tr eated with injection and gold probe thermal coagulation. The patient was seen and examined by me personally. The case was discussed with the physician's chemical laboratory assistant and I agree with the assessment and p tim as outlined in the note. Continue PPI IV infusion for total of 72 hours and then when patient is discharged he must be on twice daily PPI for 8 weeks. Resume Eliquis in 1 week. Lamont Hernandez MD Gastroenterology staffNorth GardenMarycarmen, [facility] - 12/30/2019 11:05 AM PDTFormatting of [...] status. Disposition: Plan to discharge tomorrow[facility] to [facility], once medically stable and cleared by [...] BUNCREARATIO 23 12/30/2019 PTH 72.57 (A) 04/01/2019 [id number] 25.2 (L) 12/27/2019 CALCIUM 8.6 12/30/2019 PHOS [...] been following up with ENEDINA mena in [place]. That had improved with nonoliguric state but now seems to have leveled off at around 3 and this may be reflection of unrecovered acute kidney injury and a higher baseline creatinine. At this time there is no clinical uremia, refractory volume overload, refractory acidosis, refractory hyperkalemia and no urgent indication of starting HUMANITIES AND LANGUAGES PROFESSOR. Neither is there an indication for [...] Incentive spirometry. Transfuse Prn. No indication for HUMANITIES AND LANGUAGES PROFESSOR for now. Await renal recovery. I [...] was completed later after rounds. Dictation software, [employer], was used which may contain error for [...] but not limited to potential need for HUMANITIES AND LANGUAGES PROFESSOR . This is a patient with [...] BUNCREARATIO 30 12/29/2019 PTH 72.57 (A) 04/01/2019 [id number] 25.2 (L) 12/27/2019 CALCIUM 8.7 12/29/2019 PHOS [...] been following up with ENEDINA mena in [place]. That seems to be improving with nonoliguric state and small reduction in creatinine. At this time there is no clinical uremia, refractory volume overload, refractory acidosis, refractory hyperkalemia and no urgent indication of starting HUMANITIES AND LANGUAGES PROFESSOR. Neither is there an indication for [...] Incentive spirometry. Transfuse Prn. No indication for HUMANITIES AND LANGUAGES PROFESSOR for now. Await renal recovery. I [...] was completed later after rounds. Dictation software, [employer], was used which may contain error for [...] but not limited to potential need for HUMANITIES AND LANGUAGES PROFESSOR . acetaminophen 1,000 mg Oral 3 [...] who was admitted as a transfer from [facility] due t o a mechanical [facility] [place], [place] for rehabilitation purposes. Hospita l stay [...] by [facility] in [place], [place] with discharge plans early next weeks [...] another 1 to 2 to SNF in [place], [place] if remains stable and improve d. Called his daughter Ms. Huerta and updated her about plans at phone number [phone]. Jerry Chino MD 12/29/2019 Norma Sarabia RN [...] BUNCREARATIO 28 12/28/2019 PTH 72.57 (A) 04/01/2019 [id number] 25.2 (L) 12/27/2019 CALCIUM 8.5 12/28/2019 PHOS [...] been following up with ENEDINA mena in [place]. That seems to be improving with nonoliguric state and small reduction in creatinine. At this time there is no clinical uremia, refractory volume overload, refractory acidosis, refractory hyperkalemia and no urgent indication of starting HUMANITIES AND LANGUAGES PROFESSOR. Neither is there an indication for [...] Incentive spirometry. Transfuse Prn. No indication for HUMANITIES AND LANGUAGES PROFESSOR for now. Await renal recovery. I [...] was completed later after rounds. Dictation software, [employer], was used which may contain error for [...] but not limited to potential need for HUMANITIES AND LANGUAGES PROFESSOR . acetaminophen 1,000 mg Oral 3 [...] DALILA Grant - 12/28/2019 10:49 AM PDT [facility] Service: Orthopedic Surgery Progress Note Hospital Day: [...] DALILA Peralta has created this entry using [employer]ognition [employer]en[employer] and [employer] macros. The entry has been reviewed and [...] who was admitted as a transfer from [facility] due t o a mechanical [...] [facility] [place], [place] for rehabilitation purposes. Hospita l stay [...] Medications Current Facilty-Administered PRN Medications Ordered in [facility] Medication Dose Route Frequency Provider Last [...] slow progress, he is accepted by [facility] in [place], [place] with discharge plans possib ly early [...] 1 to 2 to a SNF in [place], [place] when renal functions are st able and cleared by Nephrology services. Also called his daughter Ms. Huerta and updated her a bout plans at phone number [phone]. Jerry Chino MD 12/28/2019 hazal Robbins COTA [...] been following up with ENEDINA mena in [place]. That seems to be improving with nonoliguric state and small reduction in creatinine. At this time there is no clinical uremia, refractory volume overload, refractory acidosis, refractory hyperkalemia and no urgent indication of starting HUMANITIES AND LANGUAGES PROFESSOR. Neither is there an indication for [...] Incentive spirometry. Transfuse Prn. No indication for HUMANITIES AND LANGUAGES PROFESSOR for now. Await renal recovery. I [...] was completed later after rounds. Dictation software, [employer], was used which may contain error for [...] but not limited to potential need for HUMANITIES AND LANGUAGES PROFESSOR . acetaminophen 1,000 mg Oral 3 [...] status. Disposition: Plan to discharge Sukhdev, to [facility], once medically stable a nd cleared [...] Net -400 ml . Treatment plan: per councilor; slowly improving. *Blood pressure: labile; See VS for BP trending. Treatment plan: given IVF, continue PO or al intake; improved, stable *Hospital acquired pneumonia - on IV Zosyn, treatment per hospitalist. *[place]-incision blisters and tape adhesion injuries: see wound RN note for treatment. Patien t may require Provena vac placement prior to discharge if drainage continues - will coordina te with wound RN *Metabolic bone disorder: elevated PTH and phosphorus. Treatment per councilor (see thei r note). Subjective No chest [...] who was admitted as a transfer from [facility] due t o a mechanical [...] Medications Current Facilty-Administered PRN Medications Ordered in [facility] Medication Dose Route Frequency Provider Last [...] trength and mobility. He is accepted by [facility] in [place], [place] and discharge is delayed due to [...] to 3 days to a SNF in [place], [place] when renal functions a re stable and cleared by Nephrology services. Jerry Chino MD 12/27/2019 Linda Montalvo RN - 12/26/2019 5:09 PM PDT [facility] Service: Wound Care Consult Note Hospital Day: [...] who was admitted as a transfer from [facility] due t o a mechanical [...] Medications Current Facilty-Administered PRN Medications Ordered in [facility] Medication Dose Route Frequency Provider Last Rate Last Dose dextrose 50% injection 12.5-25 g 12.5-25 g Intravenous PRN Anders oSto PA-C 25 g at 12/22/19 0843 And [...] placement is recommended. 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 Huerta and the at phone number [phone] Code Status: Full Code Regino Greene MD [...] status. Disposition: Plan to discharge Monday, to [facility], once medically stable a nd cleared [...] lab follow-up and treatment per hospitalist and councilor. *Blood pressure: hypotensive; See VS for BP trending. 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 Current Weight: 63.5 kg (140 lb) Admit [...] Dr. Huerta and the at phone number [phone] Code Status: Full Code Regino Greene MD [...] conversation with family members today. Inpatient rn rehabilitation. Code Status: Full Code Regino Greene MD [...] sodium chloride 0.9% 100 mL/hr at 12/22/19 5924 OBJECTIVE Vital Signs: Vitals with Comments 12/22/2019 [...] GAMMA NAIL; Surgeon: Melquiades Baez DO; Location: [facility] MAIN OR OTHER SURGICAL HISTORY CATARACT [...] Electronically Signed by: Lamont Hernandez MD 12/29/2019 [facility] Portions of this chart may have been created with Mozy recognition software. Occasi onal wrong-word or sound-alike substitutions may have occurred due to the inherent castañeda itations of voice recognition software. Please read the chart carefully and recognize, using context, where these substitutions have occurred Julián Urbina MD - 12/21/2019 7:38 PM PDTFormatting of this note m ight be different from the original. [facility] Service: Hospitalist History and Physical Date of [...] higher level of care to transfer to [facility] h orthopedic 89 years old gentleman fall at this morning mechanical fall tripped on the curb and result ed in right hip pain [facility] visited x-ray found to have a [...] and LFT Orthopedic on-call was consulted from [facility] and requested to transfer for higher level of care At [facility] with multiple comorbidities REVIEW OF SYSTEMS [...] transfer lab WBC 5.9 hb10.2 hct 30.5 qhv370 potassium 5.1 Bun 85 cre 2.6 Co2-24 [...] as per stated reason Chronic A. fib [id number]- VASC score is 6- Hold Eliquis for [...] Old records reviewed on EMR. Dictation software, [employer], used which may contain error for similar sounding words even af ter review. Personal communication requested for any clarification. Disposition: inpatient Code Status: FULL CODE Primary Care Physician: MD Julián Nobles MD 12/21/2019 documented in thi s encounter Consult Notes Lamont Hernandez MD - 12/29/2019 10:26 AM PDT Gastroenterology Consultation: [facility] 12/29/2019 Andres Jones Ramirez 89 y.o. [id number] History of present illness: Gastroenterology consultation is [...] GAMMA NAIL; Surgeon: Melquiades Baez DO; Location: [facility] MAIN OR OTHER SURGICAL HISTORY CATARACT [...] file Gets together: Not on file Attends pentecostalism service: Not on file Active member of [...] this chart may have been created with [employer] voice recognition software. Occasi onal wrong-word or sound-alike substitutions may have occurred due to the inherent castañeda itations of voice recognition software. Please read the chart carefully and recognize, using context, where these substitutions have occurred Hayley Peres MD - 12/25/2019 8:46 PM PDT Consulted by [facility] Problem List: Patient Active Problem List [...] III with baseline creatinine 1.7 admitted to [facility] on December 20 after a mechanical fall that led to right hip fracture. The patient was transferr ed from [facility] for surgery. The patient did [...] Tristan Gage at the nephrology clinic in [place]. The patien t is poor historian and does not recall seeing a councilor in the past. He also not awar [...] Order(s): IP CONSULT TO WOUND OSTOMY NURSE [facility] Service: Wound Care Consult Note Hospital Day: [...] Elizabeth MD - 12/24/2019 11:33 AM PDT [facility] Service: Physicial Medicine & Rehab Consultation note [...] resulted in right hip pain [facility] visited x-ray found to have a right [...] diabetes, and cirrhosis He was transferred to [facility], and is now s/p ORIF with [...] GAMMA NAIL; Surgeon: Melquiades Baez DO; Location: [facility] MAIN OR OTHER SURGICAL HISTORY CATARACT [...] AM PDTAssociated Order(s): PROVIDER TO PROVIDER CONSULT [facility] Orthopaedic and Sports Medicine Service: Orthopedic Surgery [...] hip f racture. He was transferred to [facility] for concerns with other comor bidities. He [...] surgery. He will be taken for a [facility] hip cephalo-medullary nail.The risks and benefits [...] might b e different from the original. [facility] TRANSFER ORDERS Patient Name: Andres Guzmán [...] limb(s)): [x] OT Evaluation & Treat [] GOLD PLATER Evaluation Treat Wound/Skin Care: [] Follow current recommendations of the wound team for treatment. [] Wound Vac management per nursing protocol. Labs/Imaging: [] PT/INR: Frequency per SNF provider Goal INR: [] Fingerstick glucose check before meals and bedtime and PRN [] Labs: Follow up: Melquiades Baez DO [address] [facility] [phone] In 2 weeks For post op care Barbara Gilman MD [address] [place] [address] In 1 week I have advised [...] Regino Greene MD, certify that post hospital prison care is medically necessa ry on a continuing basis for any of the conditions for which he/she received care during thi s hospitalization. Additional Orders/Instructions: Physician's signature: 01/01/2020 10:59 AM [facility] NURSING FACILITY USE ONLY: [] [...] HIGH Current Discharge Plan Anticipated Discharge Disposition: prison facility Expected DC Date: 12/31/2019 Barriers to Discharge: placement Steps Taken Toward Discharge: Attended morning rounds, called [facility] and provided upd ate of Pt Next Steps: d/c to [facility] Community Support Services Current Outpt/Agency/Support Groups: none Community Agency Name: none Other Resources: Discharge Transportation Transportation Needs: agency transportation Notes: Pt on course to discharge to [facility] tomorrow. Idalia brown d with [facility] team and they are accepting Pt tomorrow if Pt is medically ready. Cm will follow for d/c needs that arise. Electronically signed: Ja Marcus RN 12/31/2019 3:54 PM lan of Andrez Perry PTA - 12/31/2019 2:04 PM PDT Physical Therapy Treatment Note Recommended discharge disposition: prison facility Post discharge physical therapy recommendation: Equipment [...] LTG Status continued at 12/30/2019 0805 LTG Larue Level supervised at 12/30/2019 08 LTG Assistive Device none at 12/30/2019 0805 All Transfers Goal Most Recent Value LTG Status new at 12/30/2019804 LTG Larue Level minimum assist (75% patient effort) at 12/30/2019804 LTG Assistive Device 2 wheeled walker (FWW) at 12/30/2019804 Gait Goal Most Recent Value LTG Status new at 12/30/2019804 LTG Larue Level minimum assist (75% patient effort) at [...] concerns. Aware of plan for discharge to [facility] tomorrow and has no concerns regarding disc [...] Physical Therapy Treatment Note Recommended discharge disposition: prison facility Post discharge physical therapy recommendation: Equipment [...] Bed Mobility Sit to Supine, Level of Larue: moderate assist (50% patient effort) Safety Issues: decreased use of legs for bridging/pushing Impairments: strength decreased Transfers Chair-Bed, Level of Larue: moderate assist (50% patient effort) Hpm-Cdwfm-Phy, Assistive Device: gait belt Sit-Stand, Level of Larue: moderate assist (50% patient effort) Stand-Sit, Level of Larue: moderate assist (50% patient effort) Nmo-Talnd-Glv, Assistive Device: gait belt Safety Issues: balance decreased during turns, step length decreased Impairments: strength decreased Goals Reflects last filed data and may be from multiple contributors. All Bed Mobility Goal Most Recent Value LTG Status continued at 12/30/2019 0805 LTG Larue Level supervised at 12/30/2019 0805 LTG Assistive Device none at 12/30/2019 0805 All Transfers Goal Most Recent Value LTG Status new at 12/30/2019 0805 LTG Larue Level minimum assist (75% patient effort) at 12/30/2019 0805 LTG Assistive Device 2 wheeled walker (FWW) at 12/30/2019 0805 Gait Goal Most Recent Value LTG Status new at 12/30/2019 0805 LTG Larue Level minimum assist (75% patient effort) at [...] Bed in low position, gait belt available, budget director socks on. Problem: Skin Injury Risk [...] Physical Therapy Re-Assessment Note Recommended discharge disposition: prison facility Post discharge physical therapy recommendation: ongoing low intensity therapy, will benefi t from structured setting Equipment Recommendations: (TBD) Barriers to community-based discharge Physical Impairment, Pain, and Fall risk Planned Interventions: balance training, bed mobility training, gait training, home exercis e program, manual therapy techniques, patient/family education, ROM (Range of Motion), stair training, strengthening, stretching, vietnamese ball techniques, wheelchair management/propulsio n training Recommended [...] Documentation: sit to/from stand Sit-Stand, Level of Larue: moderate assist (50% patient effort) Stand-Sit, Level of Larue: moderate assist (50% patient effort) Puq-Vqhrf-Yok, Assistive Device: other (see comments)(platform walker ) Maintain Weight Bearing Status: able to maintain weight bearing status Safety Issues: balance decreased during turns Impairments: pain, strength decreased, impaired balance Gait Gait Comments: ambulated with shuffled steps and decreased quita Level of Larue: moderate assist (50% patient effort) Assistive Device: [...] LTG Status continued at 12/30/2019 08 LTG Larue Level supervised at 12/30/2019 08 LTG Assistive Device none at 12/30/2019 0805 All Transfers Goal Most Recent Value LTG Status new at 12/30/2019 0805 LTG Larue Level minimum assist (75% patient effort) at 12/30/2019 0805 LTG Assistive Device 2 wheeled walker (FWW) at 12/30/2019 0805 Gait Goal Most Recent Value LTG Status new at 12/30/2019 0805 LTG Larue Level minimum assist (75% patient effort) at [...] Physical Therapy Treatment Note Recommended discharge disposition: prison facility Post discharge physical therapy recommendation: Equipment [...] Bed Mobility Supine to Sit, Level of Larue: moderate assist (50% patient effort) Sit to Supine, Level of Larue: moderate assist (50% patient effort) Safety Issues: decreased use of legs for bridging/pushing Impairments: strength decreased Transfers Sit-Stand, Level of Larue: moderate assist (50% patient effort) Stand-Sit, Level of Larue: moderate assist (50% patient effort) Ach-Gnmxf-Fxh, Assistive Device: other (see comments)(UP walker) Safety Issues: balance decreased during turns, step length decreased Impairments: strength decreased Gait Level of Larue: moderate assist (50% patient effort) Assistive Device: [...] LTG Status new at 12/23/2019 1600 LTG Larue Level supervised at 12/23/2019 1600 LTG Assistive Device none at 12/23/2019 1600 All Transfers Goal Most Recent Value LTG Status new at 12/23/2019 1600 LTG Larue Level modified independent at 12/23/2019 1600 LTG Assistive Device 2 wheeled walker (FWW) at 12/23/2019 1600 Gait Goal Most Recent Value LTG Status new at 12/23/2019 1600 LTG Larue Level stand by assist at 12/23/2019 1600 [...] upon request. 12 :[facility] - 12/27/2019 [...] Bed Mobility Supine to Sit, Level of Larue: moderate assist (50% patient effort) Safety Issues: decreased use of legs for bridging/pushing Impairments: strength decreased Transfers Sit-Stand, Level of Larue: moderate assist (50% patient effort) Stand-Sit, Level of Larue: moderate assist (50% patient effort) Mho-Ryvmg-Vxs, Assistive Device: other (see comments)(UP walker) Safety Issues: balance decreased during turns, step length decreased Impairments: strength decreased Exercises Bed exercises: ankle pumps, quad sets, heel slides, hip abduction/adduction, glut sets Goals Reflects last filed data and may be from multiple contributors. All Bed Mobility Goal Most Recent Value LTG Status new at 12/23/2019 1600 LTG Larue Level supervised at 12/23/2019 1600 LTG Assistive Device none at 12/23/2019 1600 All Transfers Goal Most Recent Value LTG Status new at 12/23/2019 1600 LTG Larue Level modified independent at 12/23/2019 1600 LTG Assistive Device 2 wheeled walker (FWW) at 12/23/2019 1600 Gait Goal Most Recent Value LTG Status new at 12/23/2019 1600 LTG Larue Level stand by assist at 12/23/2019 1600 [...] handled ghada e horn, long handled sponge, director water and waste services, sock aide Barriers to community-based discharge: Level [...] x1, rest break inbetween set d/t fatigue. PASCUA YAQUI for proper tech during ex able to continue seq uence intitially however would require cueing/assist later on in reps. Goals Reflects last filed data and may be from multiple contributors. LB Dressing Goal Most Recent Value LTG Status new at 12/24/2019 0953 LTG Larue Level moderate assist (50% patient effort), verbal cues required at 12/23 0953 LTG Adaptive Equipment director water and waste services, shoe horn, long handled, sock-aid [AE as needed] at 2019 0953 Toilet Transfer Goal Most Recent Value LTG Status new at 12/24/2019 0953 LTG Larue Level minimum assist (75% patient effort), verbal [...] Bed Mobility Supine to Sit, Level of Larue: moderate assist (50% patient effort) Sit to Supine, Level of Larue: moderate assist (50% patient effort) Safety Issues: decreased use of legs for bridging/pushing Impairments: strength decreased Transfers Sit-Stand, Level of Larue: moderate assist (50% patient effort) Stand-Sit, Level of Larue: moderate assist (50% patient effort) Vgq-Soool-Qsq, Assistive Device: other (see comments)(Up walker) Safety Issues: balance decreased during turns, step length decreased Impairments: strength decreased Gait Level of Larue: moderate assist (50% patient effort) Assistive Device: [...] LTG Status new at 12/23/2019 1600 LTG Larue Level supervised at 12/23/2019 1600 LTG Assistive Device none at 12/23/2019 1600 All Transfers Goal Most Recent Value LTG Status new at 12/23/2019 1600 LTG Larue Level modified independent at 12/23/2019 1600 LTG Assistive Device 2 wheeled walker (FWW) at 12/23/2019 1600 Gait Goal Most Recent Value LTG Status new at 12/23/2019 1600 LTG Larue Level stand by assist at 12/23/2019 1600 [...] Bed Mobility Supine to Sit, Level of Larue: moderate assist (50% patient effort) Safety Issues: decreased use of legs for bridging/pushing Impairments: strength decreased Transfers Sit-Stand, Level of Larue: moderate assist (50% patient effort) Stand-Sit, Level of Larue: moderate assist (50% patient effort) Mgy-Zqazx-Ehi, Assistive Device: other (see comments)(Up walker) Safety Issues: balance decreased during turns, step length decreased Impairments: strength decreased Gait Level of Larue: moderate assist (50% patient effort) Assistive Device: [...] LTG Status new at 12/23/2019 1600 LTG Larue Level supervised at 12/23/2019 1600 LTG Assistive Device none at 12/23/2019 1600 All Transfers Goal Most Recent Value LTG Status new at 12/23/2019 1600 LTG Larue Level modified independent at 12/23/2019 1600 LTG Assistive Device 2 wheeled walker (FWW) at 12/23/2019 1600 Gait Goal Most Recent Value LTG Status new at 12/23/2019 1600 LTG Larue Level stand by assist at 12/23/2019 1600 [...] HIGH Current Discharge Plan Anticipated Discharge Disposition: prison facility Expected DC Date: 12/30/2019 Barriers to Discharge: placement Steps Taken Toward Discharge: Attended morning rounds Next Steps: d/c to [facility] Community Support Services Current Outpt/Agency/Support Groups: none Community Agency Name: none Other Resources: Discharge Transportation Transportation Needs: agency transportation Notes: Pt not medically ready for discharge. Cm called Idalia CM at [facility] and updat ed her on Pt progress. Pt may be ready for d/c Monday. Cm will continue to follow for placem ent needs. Electronically signed: Ja Marcus RN 12/26/2019 11:46 AM lan of [facility] t - 12/26/2019 10:00 AM PDT [...] Bed Mobility Sit to Supine, Level of Larue: maximal assist (25% patient effort), verbal cues requ ired Safety Issues: decreased use of legs for bridging/pushing, decreased use of arms for pushin g/pulling Impairments: strength decreased, pain, impaired balance Transfers Sit-Stand, Level of Larue: moderate assist (50% patient effort), verbal cues require d Stand-Sit, Level of Larue: moderate assist (50% patient effort), verbal cues require d Gju-Rqywl-Eks, Assistive Device: 2 wheeled walker (FWW), gait belt Safety Issues: sequencing ability decreased, balance decreased during turns Gait Level of Larue: moderate assist (50% patient effort) Assistive Device: [...] LTG Status new at 12/23/2019 1600 LTG Larue Level supervised at 12/23/2019 1600 LTG Assistive Device none at 12/23/2019 1600 All Transfers Goal Most Recent Value LTG Status new at 12/23/2019 1600 LTG Larue Level modified independent at 12/23/2019 1600 LTG Assistive Device 2 wheeled walker (FWW) at 12/23/2019 1600 Gait Goal Most Recent Value LTG Status new at 12/23/2019 1600 LTG Larue Level stand by assist at 12/23/2019 1600 [...] HIGH Current Discharge Plan Anticipated Discharge Disposition: prison facility Expected DC Date: 12/27/2019 Barriers to Discharge: placement Steps Taken Toward Discharge: Attended rounds Next Steps: d/c to [facility] Community Support Services Current Outpt/Agency/Support Groups: none Community Agency Name: none Other Resources: Discharge Transportation Transportation Needs: agency transportation Notes: Pt not medically ready for discharge. Cm received call from [facility] from [facility]. Pt has been accepted but wants [...] (Range of Motion), stair training, strengthening, stretching, vietnamese ball techniques, w heelchair management/propulsion training Recommended [...] HOB elevated Supine to Sit, Level of Larue: moderate assist (50% patient effort), verbal cues req uired Safety Issues: decreased use of legs for bridging/pushing, decreased use of arms for pushin g/pulling Impairments: strength decreased, pain, impaired balance Transfers Additional Documentation: sit to/from stand Chair-Bed, Level of Larue: moderate assist (50% patient effort), verbal cues require d Jox-Tukst-Fdo, Assistive Device: 2 wheeled walker (FWW) Sit-Stand, Level of Larue: moderate assist (50% patient effort), verbal cues require d Stand-Sit, Level of Larue: moderate assist (50% patient effort), verbal cues require d Sln-Xfiwi-Bvw, Assistive Device: 2 wheeled walker (FWW), gait belt Maintain Weight Bearing Status: able to maintain weight bearing status Safety Issues: sequencing ability decreased, balance decreased during turns Impairments: impaired balance, coordination impaired, pain, decreased flexibility Gait Gait Comments: 4 steps to chair Level of Larue: moderate assist (50% patient effort) Assistive Device: [...] LTG Status new at 12/23/2019 1600 LTG Larue Level supervised at 12/23/2019 1600 LTG Assistive Device none at 12/23/2019 1600 All Transfers Goal Most Recent Value LTG Status new at 12/23/2019 1600 LTG Larue Level modified independent at 12/23/2019 1600 LTG Assistive Device 2 wheeled walker (FWW) at 12/23/2019 1600 Gait Goal Most Recent Value LTG Status new at 12/23/2019 1600 LTG Larue Level stand by assist at 12/23/2019 1600 [...] long handled shoe horn, long handled sponge, director water and waste services, sock aide(BSC (?)) Barriers to community-based discharge [...] seated in the recliner Grooming, Level of Larue: supervised Assistive Device: none Grooming Assess/Train, Position: sitting Bed Mobility Additional Documentation: supine to/from sit Assistive Device: HOB elevated, bed rails Sit to Supine, Level of Larue: maximal assist (25% patient effort), verbal cues [...] stand, bed to/from chair Chair-Bed, Level of Larue: moderate assist (50% patient effort), verbal cues require d Bza-Eoztt-Ypn, Assistive Device: gait belt Sit-Stand, Level of Larue: moderate assist (50% patient effort), verbal cues require d Stand-Sit, Level of Larue: moderate assist (50% patient effort), verbal cues require d Nqa-Nacrr-Fud, Assistive Device: 2 wheeled walker (FWW), gait [...] LTG Status new at 12/24/2019 0953 LTG Larue Level moderate assist (50% patient effort), verbal cues required at 12/23 0953 LTG Adaptive Equipment director water and waste services, shoe horn, long handled, sock-aid [AE as needed] at 2019 0953 Toilet Transfer Goal Most Recent Value LTG Status new at 12/24/2019 0953 LTG Larue Level minimum assist (75% patient effort), verbal [...] HOB elevated Supine to Sit, Level of Larue: moderate assist (50% patient effort), verbal cues req uired Safety Issues: decreased use of arms for pushing/pulling, decreased use of legs for bridgin g/pushing Impairments: decreased flexibility, pain, impaired balance Transfers Additional Documentation: sit to/from stand Sit-Stand, Level of Larue: minimal assist (75% patient effort) Stand-Sit, Level of Larue: minimal assist (75% patient effort) Jjy-Fncha-Txe, Assistive Device: 2 wheeled walker (FWW) Maintain Weight Bearing Status: able to maintain weight bearing status Safety Issues: sequencing ability decreased Impairments: decreased flexibility, impaired balance, pain Gait Gait Comments: side stepping to recliner Level of Larue: minimal assist (75% patient effort) Assistive Device: [...] LTG Status new at 12/23/2019 1600 LTG Larue Level supervised at 12/23/2019 1600 LTG Assistive Device none at 12/23/2019 1600 All Transfers Goal Most Recent Value LTG Status new at 12/23/2019 1600 LTG Larue Level modified independent at 12/23/2019 1600 LTG Assistive Device 2 wheeled walker (FWW) at 12/23/2019 1600 Gait Goal Most Recent Value LTG Status new at 12/23/2019 1600 LTG Larue Level stand by assist at 12/23/2019 1600 [...] discharge planning concerns Services Anticipated at Discharge: prison facility Equipment Used at Home: cane, straight, single point, 2 wheeled walker (FWW) Equipment Needed after Discharge: walker, standard Durable Medical Equipment Provider: Pharmacy/Medication Needs: other (see comments)([facility] in [place], [place]) Transportation Needs: agency transportation Initial Plan Anticipated Discharge Disposition: prison facility Expected DC Date: other (see comments)(SNF [...] stated that he would like to go [facility] if needed before going home. Cm called [facility]alia [facility] [phone]. Cm sent referral to [facility]. Pt stated that Deanna (daughter) edgardo harmon [...] (Range of Motion), stair training, strengthening, stretching, vietnamese ball techniques, wheelchair management/propulsio n training Recommended [...] HOB elevated Supine to Sit, Level of Larue: moderate assist (50% patient effort) Sit to Supine, Level of Larue: maximal assist (25% patient effort) Safety Issues: decreased use of arms for pushing/pulling, decreased use of legs for bridgin g/pushing Impairments: decreased flexibility, impaired balance, pain Transfers Additional Documentation: sit to/from stand Sit-Stand, Level of Larue: minimal assist (75% patient effort) Stand-Sit, Level of Larue: minimal assist (75% patient effort) Mfn-Fyxqe-Iqj, Assistive Device: 2 wheeled walker (FWW) Maintain [...] LTG Status new at 12/23/2019 1600 LTG Larue Level supervised at 12/23/2019 1600 LTG Assistive Device none at 12/23/2019 1600 All Transfers Goal Most Recent Value LTG Status new at 12/23/2019 1600 LTG Larue Level modified independent at 12/23/2019 1600 LTG Assistive Device 2 wheeled walker (FWW) at 12/23/2019 1600 Gait Goal Most Recent Value LTG Status new at 12/23/2019 1600 LTG Larue Level stand by assist at 12/23/2019 1600 [...] DO - 12/22/2019 10:34 AM [facility] Orthop aedic and Sports Medicine Service: [...] by: Melquiades Baez DO, 12/22/2019 10:35 AM [facility] lan of Care - Cru [...] 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 2. [...] [address] | | | | | | [place] [address] | | | | | | [phone] | | | | | | | | +--------+ + + + + | 03/24/ | Hospital | | Anna Edouard, | Esophagitis | 2019 | Encounter | | MD [address] | | | | | | [place] [address] | | | | | | [phone] | | | | | | | | +--------+ + + + + | 03/24/ | Surgery | | Anna Edouard | EGD | | 2019 | | | [address] | | | | | | [place] [address] | | | | | | [phone] | | | | | | | | +--------+ + + + + | 03/31/ | Office | Orthopedic Surgery | Melquiades Baez | | | 2019 | Visit | | DO [address] | | | | | | [place], | | | | | | [place] [address] | | | | | | [phone] | | | | | | | | +--------+ + + + + | 04/21/ | Office | Nephrology | Isiah Jade MD | | 2019 | Visit | | [address] [facility] | | | | | | [address] | | | | | | [address] | | | | | | | | +--------+ + + + + | 05/07/ | Office | Cardiology | Charlee Oswald | | | 2019 | Visit | | [address] | | | | | | [address] | | | | | | [place] [address] | | | | | | [phone] | | | | | | | [...] + +--------+ + + + | *TERMED* UT UPPER GI | Routin | 12/29/2019 | [...] | | | POC | performed at [facility];[address] | | LABORATORY | | | | [address];[place], [place] | | | | | | [address] | | | | + + + + + + + + | Specimen | + + | | + + + + + + + | Performing | Address | City/State/Zipcode | Phone Number | | Organization | | | | + + + + + | [facility] | [address] | [place] [address] | [phone] | + + + + + POC [...] | | | POC | performed at [facility];[address] | | LABORATORY | | | | [address];[place] | | | | | | [address] | | | | + + + + + + + + | Specimen | + + | | + + + + + + + | Performing | Address | City/State/Zipcode | Phone Number | | Organization | | | | + + + + + | [facility] | [address] | [place] [address] | [phone] | + + + + + Basic [...] | 8.6 | 8.5 - 10.5 | [facility] | | | | | mg/dL | LABORATORY | | + + + + + + | Estimated | 23 (L)Comment: GFR <60: | >60 | [facility] | | | GFR | CHRONIC [...] CITY;[address] | | | | | | [facility];[place], [place] | | | | | | [address] | | | | + + + + + + + + | Specimen | + + | Blood | + + + + + + + | Performing | Address | City/State/Zipcode | Phone Number | | Organization | | | | + + + + + | [facility] | [address] | [place] [address] | [phone] | + + + + + CBC [...] Testing | 0.00 - 0.10 | [facility] | | | Absolute | performed at [facility];[address] | K/uL | LABORATORY | | | | [address];[place] | | | | | | [address] | | | | + + + + + + + + | Specimen | + + | Blood | + + + + + + + | Performing | Address | City/State/Zipcode | Phone Number | | Organization | | | | + + + + + | [facility] | [address] | [place] [address] | [phone] | + + + + + POC [...] | | | POC | performed at [facility];[address] | | LABORATORY | | | | [address];[place], [place] | | | | | | [address] | | | | + + + + + + + + | Specimen | + + | | + + + + + + + | Performing | Address | City/State/Zipcode | Phone Number | | Organization | | | | + + + + + | [facility] | [address] | [place] [address] | [phone] | + + + + + POC [...] | | | POC | performed at [facility];[address] | | LABORATORY | | | | [address];[place] | | | | | | [address] | | | | + + + + + + + + | Specimen | + + | | + + + + + + + | Performing | Address | City/State/Zipcode | Phone Number | | Organization | | | | + + + + + | [facility] | [address] | [place] [address] | [phone] | + + + + + POC Glucose (12/31/2019 12:50 PM PDT) + + + + + + | Component | Value | Ref Range | Performed | Pathologist | | | | | At | Signature | + + + + + + | Glucose, | 239 (H)Comment: Testing | 65 - 99 mg/dL | [facility] | | | POC | performed at [facility];[address] | | LABORATORY | | | | [address];[place] | | | | | | [address] | | | | + + + + + + + + | Specimen | + + | | + + + + + + + | Performing | Address | City/State/Zipcode | Phone Number | | Organization | | | | + + + + + | [facility] | [address] | [place] [address] | [phone] | + + + + + POC Glucose (12/31/2019 6:36 AM PDT) + + + + + + | Component | Value | Ref Range | Performed | Pathologist | | | | | At | Signature | + + + + + + | Glucose, | 154 (H)Comment: Testing | 65 - 99 mg/dL | [facility] | | | POC | performed at [facility];[address] | | LABORATORY | | | | [address];[place], [place] | | | | | | [address] | | | | + + + + + + + + | Specimen | + + | | + + + + + + + | Performing | Address | City/State/Zipcode | Phone Number | | Organization | | | | + + + + + | [facility] | [address] | [place] [address] | [phone] | + + + + + Basic [...] | | | | | | [facility], | | | | | | [place] [address] | | | | + + + + + + + + | Specimen | + + | Blood | + + + + + + + | Performing | Address | City/State/Zipcode | Phone Number | | Organization | | | | + + + + + | [facility] | [address] | [place] [address] | [phone] | + + + + + CBC [...] Testing | 0.00 - 0.10 | [facility] | | | Absolute | performed at [facility], [address] | K/uL | LABORATORY | | | | [address], | | | | | | [place] [address] | | | | + + + + + + + + | Specimen | + + | Blood | + + + + + + + | Performing | Address | City/State/Zipcode | Phone Number | | Organization | | | | + + + + + | [facility] | [address] | [place] [address] | [phone] | + + + + + POC [...] | | | POC | performed at [facility];[address] | | LABORATORY | | | | [address];[place] | | | | | | [address] | | | | + + + + + + + + | Specimen | + + | | + + + + + + + | Performing | Address | City/State/Zipcode | Phone Number | | Organization | | | | + + + + + | [facility] | [address] | [place] [address] | [phone] | + + + + + POC [...] | | | POC | performed at [facility];[address] | | LABORATORY | | | | [address];[place], [place] | | | | | | [address] | | | | + + + + + + + + | Specimen | + + | | + + + + + + + | Performing | Address | City/State/Zipcode | Phone Number | | Organization | | | | + + + + + | [facility] | [address] [facility] | [place] [address] | [phone] | + + + + + POC [...] | | | POC | performed at [facility];[address] | | LABORATORY | | | | [address];[place], [place] | | | | | | [address] | | | | + + + + + + + + | Specimen | + + | | + + + + + + + | Performing | Address | City/State/Zipcode | Phone Number | | Organization | | | | + + + + + | [facility] | [address] | [place] [address] | [phone] | + + + + + Basic [...] CITY;[address] | | | | | | [facility];[place], [place] | | | | | | [address] | | | | + + + + + + + + | Specimen | + + | Blood | + + + + + + + | Performing | Address | City/State/Zipcode | Phone Number | | Organization | | | | + + + + + | [facility] | [address] | [place] [address] | [phone] | + + + + + POC [...] | | | POC | performed at [facility];[address] | | LABORATORY | | | | [address];[place], [place] | | | | | | [address] | | | | + + + + + + + + | Specimen | + + | | + + + + + + + | Performing | Address | City/State/Zipcode | Phone Number | | Organization | | | | + + + + + | [facility] | [address] | [place] [address] | [phone] | + + + + + CBC [...] 0.03Comment: Testing | 0.00 - 0.10 | [facility] | | | Absolute | performed at [facility];[address] | K/uL | LABORATORY | | | | [address];[place] | | | | | | [address] | | | | + + + + + + + + | Specimen | + + | Blood | + + + + + + + | Performing | Address | City/State/Zipcode | Phone Number | | Organization | | | | + + + + + | [facility] | [address] | [place] [address] | [phone] | + + + + + POC [...] | | | POC | performed at [facility];[address] | | LABORATORY | | | | [address];[place], [place] | | | | | | [address] | | | | + + + + + + + + | Specimen | + + | | + + + + + + + | Performing | Address | City/State/Zipcode | Phone Number | | Organization | | | | + + + + + | [facility] | [address] | [place] [address] | [phone] | + + + + + Hemoglobin [...] CORDELL | | | | performed at [facility];[address] | | LABORATORY | | | | [address];[place], [place] | | | | | | [address] | | | | + + + + + + + + | Specimen | + + | Blood | + + + + + + + | Performing | Address | City/State/Zipcode | Phone Number | | Organization | | | | + + + + + | [facility] | [address] | [place] [address] | [phone] | + + + + + POC [...] | | | POC | performed at [facility];[address] | | LABORATORY | | | | [address] [facility];[place], [place] | | | | | | [address] | | | | + + + + + + + + | Specimen | + + | | + + + + + + + | Performing | Address | City/State/Zipcode | Phone Number | | Organization | | | | + + + + + | [facility] | [address] | [place] [address] | [phone] | + + + + + Hemoglobin [...] ALEX | | | | performed at [facility];[address] | | LABORATORY | | | | [address];[place] | | | | | | [address] | | | | + + + + + + + + | Specimen | + + | Blood | + + + + + + + | Performing | Address | City/State/Zipcode | Phone Number | | Organization | | | | + + + + + | [facility] | [address] | [place] [address] | [phone] | + + + + + POC [...] | | | POC | performed at [facility];[address] | | LABORATORY | | | | [address];[place] | | | | | | [address] | | | | + + + + + + + + | Specimen | + + | | + + + + + + + | Performing | Address | City/State/Zipcode | Phone Number | | Organization | | | | + + + + + | [facility] | [address] | [place] [address] | [phone] | + + + + + POC Glucose (12/29/2019 11:06 AM PDT) + + + + + + | Component | Value | Ref Range | Performed | Pathologist | | | | | At | Signature | + + + + + + | Glucose, | 205 (H)Comment: Testing | 65 - 99 mg/dL | [facility] | | | POC | performed at [facility];[address] | | LABORATORY | | | | [address];[place] | | | | | | [address] | | | | + + + + + + + + | Specimen | + + | | + + + + + + + | Performing | Address | City/State/Zipcode | Phone Number | | Organization | | | | + + + + + | [facility] | [address] | [place] [address] | [phone] | + + + + + Surgical [...] and consists of two | | | white-pascla soft tissue fragment(s) that measure 0.2 and [...] | | technical component was performed by [facility], [address] [place] [address] | | | [place] [address] (School Services Officer: Padmini Sellers MD; CLIA# | | | [id number]). Professional interpretation was performed by[employer] | | | [employer], [address], | | | [place] [address] (School Services Officer: Oscar Maynard M.D.; CLIA#: | | | [id number]). Diagnostician: Padmini Sellers | | | MDPathologistElectronically [...] | |The technical component was performed by [facility], [address] [place] [address] (School Services Officer: Padmini Sellers MD; CLIA# [id number]). Professional interpretation was performed by | | |[facility], [address] [address] (School Services Officer: Oscar Maynard M.D.; CLIA#: [id number]). | | | | | |Diagnostician: Padmini [...] | + + + | Geoff | [facility] | | [facility] | [facility] | | CenterGastroenterology | | | Patient Name: Andres Guzmán | | | Procedure Date: 12/29/2019 8:36 AMMRN: [id number] | | | of : 1930 | [...] the anesthesiologist and the | | | technician support engineer in the pre-procedure area in the procedure [...] | | | with Gold probe 7 Mozamb[place] x 5 pulses was successful with | [...] | | | AMNumber of Addenda: 0 [facility] | | | - Check hemoglobin q 6 hours for one day. | | | | | | | | |LAMONT HERNANDEZ MD | | |12/29/2019 10:19:54 AM | | |This report has been signed electronically. | | | | | |Note Initiated On: 12/29/2019 8:36 AM | | |Number of Addenda: 0 | | | | | | [facility] | | + + + + [...] [facility] | | | | performed at [facility];[address] | | LABORATORY | | | | [address];[place], [place] | | | | | | [address] | | | | + + + + + + + + | Specimen | + + | Blood | + + + + + + + | Performing | Address | City/State/Zipcode | Phone Number | | Organization | | | | + + + + + | [facility] | [address] | [place] [address] | [phone] | + + + + + POC Glucose (12/29/2019 6:06 AM PDT) + + + + + + | Component | Value | Ref Range | Performed | Pathologist | | | | | At | Signature | + + + + + + | Glucose, | 146 (H)Comment: Testing | 65 - 99 mg/dL | [facility] | | | POC | performed at [facility];[address] | | LABORATORY | | | | [address];[place] | | | | | | [address] | | | | + + + + + + + + | Specimen | + + | | + + + + + + + | Performing | Address | City/State/Zipcode | Phone Number | | Organization | | | | + + + + + | [facility] | [address] | [place] [address] | [phone] | + + + + + CBC [...] | | | Absolute | performed at [facility];[address] | K/uL | LABORATORY | | | | [address];[place] | | | | | | [address] | | | | + + + + + + + + | Specimen | + + | Blood | + + + + + + + | Performing | Address | City/State/Zipcode | Phone Number | | Organization | | | | + + + + + | [facility] | [address] | [place] [address] | [phone] | + + + + + Shine ORTEGA (12/29/2019 3:53 AM PDT) + + + + + + | Component | Value | Ref Range | Performed | Pathologist | | | | | At | Signature | + + + + + + | INR | 1.3Comment: REFERENCE | | [facility] | | | | RANGE:0.9 - [...] [place] | | | | | | [address] | | | | + + + + + + + + | Specimen | + + | Blood | + + + + + + + | Performing | Address | City/State/Zipcode | Phone Number | | Organization | | | | + + + + + | [facility] | [address] | [place] [address] | [phone] | + + + + + Basic [...] CITY;[address] | | | | | | [facility];[place], [place] | | | | | | [address] | | | | + + + + + + + + | Specimen | + + | Blood | + + + + + + + | Performing | Address | City/State/Zipcode | Phone Number | | Organization | | | | + + + + + | [facility] | [address] | [place] [address] | [phone] | + + + + + POC [...] | | | POC | performed at [facility];[address] | | LABORATORY | | | | [address];[place] | | | | | | [address] | | | | + + + + + + + + | Specimen | + + | | + + + + + + + | Performing | Address | City/State/Zipcode | Phone Number | | Organization | | | | + + + + + | [facility] | [address] | [place] [address] | [phone] | + + + + + Hemoglobin [...] [facility] | | | | performed at [facility];[address] | | LABORATORY | | | | [address];[place] | | | | | | [address] | | | | + + + + + + + + | Specimen | + + | Blood | + + + + + + + | Performing | Address | City/State/Zipcode | Phone Number | | Organization | | | | + + + + + | [facility] | [address] | [place] [address] | [phone] | + + + + + POC [...] | | | POC | performed at [facility];[address] | | LABORATORY | | | | [address];[place], [place] | | | | | | [address] | | | | + + + + + + + + | Specimen | + + | | + + + + + + + | Performing | Address | City/State/Zipcode | Phone Number | | Organization | | | | + + + + + | [facility] | [address] | [place] [address] | [phone] | + + + + + Fecal [...] | | LABORATORY | | | | [facility];[address] | [address];[place] [address] | | | | + + + + + + + + | Specimen | + + | Stool - Stool | | specimen (specimen) | + + + + + + + | Performing | Address | City/State/Zipcode | Phone Number | | Organization | | | | + + + + + | [facility] | [address] | [place] [address] | [phone] | + + + + + POC Glucose (12/28/2019 4:32 PM PDT) + + + + + + | Component | Value | Ref Range | Performed | Pathologist | | | | | At | Signature | + + + + + + | Glucose, | 124 (H)Comment: Testing | 65 - 99 mg/dL | [facility] | | | POC | performed at [facility];[address] | | LABORATORY | | | | [address];[place] | | | | | | [address] | | | | + + + + + + + + | Specimen | + + | | + + + + + + + | Performing | Address | City/State/Zipcode | Phone Number | | Organization | | | | + + + + + | [facility] | [address] | [place] [address] | [phone] | + + + + + Hemoglobin [...] [facility] | | | | performed at [facility];8 | | LABORATORY | | | | [facility];[place], [place] | | | | | | [address] | | | | + + + + + + + + | Specimen | + + | Blood | + + + + + + + | Performing | Address | City/State/Zipcode | Phone Number | | Organization | | | | + + + + + | [facility] | [address] | [place] [address] | [phone] | + + + + + POC Glucose (12/28/2019 11:59 AM PDT) + + + + + + | Component | Value | Ref Range | Performed | Pathologist | | | | | At | Signature | + + + + + + | Glucose, | 163 (H)Comment: Testing | 65 - 99 mg/dL | [facility] | | | POC | performed at [facility];[address] | | LABORATORY | | | | [address];[place], [place] | | | | | | [address] | | | | + + + + + + + + | Specimen | + + | | + + + + + + + | Performing | Address | City/State/Zipcode | Phone Number | | Organization | | | | + + + + + | [facility] | [address] | [place] [address] | [phone] | + + + + + POC [...] | | | POC | performed at [facility];[address] | | LABORATORY | | | | [address];[place], [place] | | | | | | [address] | | | | + + + + + + + + | Specimen | + + | | + + + + + + + | Performing | Address | City/State/Zipcode | Phone Number | | Organization | | | | + + + + + | [facility] | [address] | [place] [address] | [phone] | + + + + + CBC [...] 0.01Comment: Testing | 0.00 - 0.10 | [facility] | | | Absolute | performed at [facility], [address] | K/u[address] | LABORATORY | | | | [address], | | | | | | [place] [address] | | | | + + + + + + + + | Specimen | + + | Blood | + + + + + + + | Performing | Address | City/State/Zipcode | Phone Number | | Organization | | | | + + + + + | [facility] | [address] | [place] [address] | [phone] | + + + + + Basic [...] | | | | | | MDRD IDTN traceable | | | | | | equation.Testing | | | | | | performed at [facility], [address] | | | | | | [facility], | | | | | | [place] [address] | | | | + + + + + + + + | Specimen | + + | Blood | + + + + + + + | Performing | Address | City/State/Zipcode | Phone Number | | Organization | | | | + + + + + | [facility] | [address] | [place] [address] | [phone] | + + + + + POC [...] | | | POC | performed at [facility];[address] | | LABORATORY | | | | [address];[place], [place] | | | | | | [address] | | | | + + + + + + + + | Specimen | + + | | + + + + + + + | Performing | Address | City/State/Zipcode | Phone Number | | Organization | | | | + + + + + | [facility] | [address] | [place] [address] | [phone] | + + + + + POC Glucose (12/27/2019 3:30 PM PDT) + + + + + + | Component | Value | Ref Range | Performed | Pathologist | | | | | At | Signature | + + + + + + | Glucose, | 156 (H)Comment: Testing | 65 - 99 mg/dL | [facility] | | | POC | performed at [facility];[address] | | LABORATORY | | | | [address];[place], [place] | | | | | | [address] | | | | + + + + + + + + | Specimen | + + | | + + + + + + + | Performing | Address | City/State/Zipcode | Phone Number | | Organization | | | | + + + + + | [facility] | [address] | [place] [address] | [phone] | + + + + + Red [...] | | LABORATORY | | | | Blvd;[place] [address] | | | | + + + + + + + + | Specimen | + + | | + + + + + + + | Performing | Address | City/State/Zipcode | Phone Number | | Organization | | | | + + + + + | [facility] | [address] | [place] [address] | [phone] | + + + + + Type [...] + + + | BB BAND | [id number] | | [facility] | | | | | | LABORATORY | | + + + + + + | UNIT # | [id number] | | [facility] | | | | [...] + + + | UNIT # | [id number] | | [facility] | | | | [...] | | | RESULT | performed at [facility];[address] | | LABORATORY | | | | [address];[place] | | | | | | [address] | | | | + + + + + + + + | Specimen | + + | Blood | + + + + + + + | Performing | Address | City/State/Zipcode | Phone Number | | Organization | | | | + + + + + | [facility] | [address] | [place] [address] | [phone] | + + + + + POC [...] | | | POC | performed at [facility];[address] | | LABORATORY | | | | [address];[place], [place] | | | | | | [address] | | | | + + + + + + + + | Specimen | + + | | + + + + + + + | Performing | Address | City/State/Zipcode | Phone Number | | Organization | | | | + + + + + | [facility] | [address] | [place] [address] | [phone] | + + + + + CBC [...] Testing | 0.00 - 0.10 | [facility] | | | Absolute | performed at [facility], [address] | K/uL | LABORATORY | | | | [address], | | | | | | [place] [address] | | | | + + + + + + + + | Specimen | + + | | + + + + + + + | Performing | Address | City/State/Zipcode | Phone Number | | Organization | | | | + + + + + | [facility] | [address] | [place] [address] | [phone] | + + + + + Procalcitonin [...] | | | | | | at [facility];[address] [place] [address] | | | | | | [facility];[place] [address] | | | | + + + + + + + + | Specimen | + + | Blood | + + + + + + + | Performing | Address | City/State/Zipcode | Phone Number | | Organization | | | | + + + + + | [facility] | [address] | [place] [address] | [phone] | + + + + + Basic [...] | | | | | performed at [facility], [address] | | | | | | [facility], | | | | | | [place] [address] | | | | + + + + + + + + | Specimen | + + | Blood | + + + + + + + | Performing | Address | City/State/Zipcode | Phone Number | | Organization | | | | + + + + + | [facility] | [address] | [place] [address] | [phone] | + + + + + Vitamin [...] | | | | defined by the [place] | | | | | | ofMedicine [...] IOM | | | | | | ([place] of [employer]). | | | | | [...] Hugh; | | | | | | [phone].Testing | | | | | | performed at [facility], | | | | | | [address], | | | | | | [facility] [address] | | | | + + + + + + + + | Specimen | + + | Blood | + + + + + + + | Performing | Address | City/State/Zipcode | Phone Number | | Organization | | | | + + + + + | [facility] | [address] | [place] [address] | [phone] | + + + + + Potassium (12/27/2019 12:08 AM PDT) + + + + + + | Component | Value | Ref Range | Performed | Pathologist | | | | | At | Signature | + + + + + + | K | 4.0Comment: Testing | 3.5 - 4.9 | [facility] | | | | performed at [facility];[address] | mmol/L | LABORATORY | | | | [address];[place] | | | | | | [address] | | | | + + + + + + + + | Specimen | + + | Blood | + + + + + + + | Performing | Address | City/State/Zipcode | Phone Number | | Organization | | | | + + + + + | [facility] | [address] | [place] [address] | [phone] | + + + + + Magnesium (12/27/2019 12:08 AM PDT) + + + + + + | Component | Value | Ref Range | Performed | Pathologist | | | | | At | Signature | + + + + + + | Magnesium | 2.2Comment: Testing | 1.7 - 2.4 mg/dL | [facility] | | | | performed at [facility];[address] | | LABORATORY | | | | [address];[place], [place] | | | | | | [address] | | | | + + + + + + + + | Specimen | + + | Blood | + + + + + + + | Performing | Address | City/State/Zipcode | Phone Number | | Organization | | | | + + + + + | [facility] | [address] [facility] | [place] [address] | [phone] | + + + + + ECG [...] | | | POC | performed at [facility];[address] | | LABORATORY | | | | [address];[place] | | | | | | [address] | | | | + + + + + + + + | Specimen | + + | | + + + + + + + | Performing | Address | City/State/Zipcode | Phone Number | | Organization | | | | + + + + + | [facility] | [address] | [place] [address] | [phone] | + + + + + POC [...] | | | POC | performed at [facility];[address] | | LABORATORY | | | | [address];[place], [place] | | | | | | [address] | | | | + + + + + + + + | Specimen | + + | | + + + + + + + | Performing | Address | City/State/Zipcode | Phone Number | | Organization | | | | + + + + + | [facility] | [address] [facility] | [place] [address] | [phone] | + + + + + Complement [...] | | | COMPLEMENT | performed at [facility], | | LABORATORY | | | | [address], | | | | | | [place] [address] | | | | + + + + + + + + | Specimen | + + | | + + + + + + + | Performing | Address | City/State/Zipcode | Phone Number | | Organization | | | | + + + + + | [facility] | [address] | [place] [address] | [phone] | + + + + + Complement C3 Ag (12/26/2019 12:33 PM PDT) + + + + + + | Component | Value | Ref Range | Performed | Pathologist | | | | | At | Signature | + + + + + + | C3 | 53 (L)Comment: Testing | 82 - 167 mg/dL | [facility] | | | COMPLEMENT | performed at [facility], | | LABORATORY | | | | [address], [facility] [address], | | | | | | [facility] [address] | | | | + + + + + + + + | Specimen | + + | | + + + + + + + | Performing | Address | City/State/Zipcode | Phone Number | | Organization | | | | + + + + + | [facility] | [address] | [place] [address] | [phone] | + + + + + POC Glucose (12/26/2019 11:15 AM PDT) + + + + + + | Component | Value | Ref Range | Performed | Pathologist | | | | | At | Signature | + + + + + + | Glucose, | 161 (H)Comment: Testing | 65 - 99 mg/dL | [facility] | | | POC | performed at [facility];[address] | | LABORATORY | | | | [address];[place] | | | | | | [address] | | | | + + + + + + + + | Specimen | + + | | + + + + + + + | Performing | Address | City/State/Zipcode | Phone Number | | Organization | | | | + + + + + | [facility] | [address] | [place] [address] | [phone] | + + + + + POC [...] | | | POC | performed at [facility];[address] | | LABORATORY | | | | [address];[place], [place] | | | | | | [address] | | | | + + + + + + + + | Specimen | + + | | + + + + + + + | Performing | Address | City/State/Zipcode | Phone Number | | Organization | | | | + + + + + | [facility] | [address] | [place] [address] | [phone] | + + + + + Parathyroid Hormone, Intraoperative (12/26/2019 4:25 AM PDT) + + + + + + | Component | Value | Ref Range | Performed | Pathologist | | | | | At | Signature | + + + + + + | PTH Intact | 167.0 (H)Comment: | 8.7 - 79.6 | [facility] | | | | Testing performed at | pg/mL | LABORATORY | | | | [facility];[address] | | | | [address];[place] [address] | | | | + + + + + + + + | Specimen | + + | | + + + + + + + | Performing | Address | City/State/Zipcode | Phone Number | | Organization | | | | + + + + + | [facility] | [address] | [place] [address] | [phone] | + + + + + Renal [...] 13 (L)Comment: GFR <60: | >60 | [facility] | | | GFR | CHRONIC [...] | | | | | performed at [facility], [address] | | | | | | [facility], | | | | | | [place], [place] [address] | | | | + + + + + + + + | Specimen | + + | Blood | + + + + + + + | Performing | Address | City/State/Zipcode | Phone Number | | Organization | | | | + + + + + | [facility] | [address] | [place] [address] | [phone] | + + + + + POC Glucose (12/25/2019 8:53 PM PDT) + + + + + + | Component | Value | Ref Range | Performed | Pathologist | | | | | At | Signature | + + + + + + | Glucose, | 169 (H)Comment: Testing | 65 - 99 mg/dL | [facility] | | | POC | performed at [facility];[address] | | LABORATORY | | | | [address];[place] | | | | | | [address] | | | | + + + + + + + + | Specimen | + + | | + + + + + + + | Performing | Address | City/State/Zipcode | Phone Number | | Organization | | | | + + + + + | [facility] | [address] | [place] [address] | [phone] | + + + + + POC [...] | | | POC | performed at [facility];[address] | | LABORATORY | | | | [address];[place], [place] | | | | | | [address] | | | | + + + + + + + + | Specimen | + + | | + + + + + + + | Performing | Address | City/State/Zipcode | Phone Number | | Organization | | | | + + + + + | [facility] | [address] | [place] [address] | [phone] | + + + + + ECHO [...] | | | POC | performed at [facility];[address] | | LABORATORY | | | | [address];[place], [place] | | | | | | [address] | | | | + + + + + + + + | Specimen | + + | | + + + + + + + | Performing | Address | City/State/Zipcode | Phone Number | | Organization | | | | + + + + + | [facility] | [address] | [place] [address] | [phone] | + + + + + POC Glucose (12/25/2019 7:56 AM PDT) + + + + + + | Component | Value | Ref Range | Performed | Pathologist | | | | | At | Signature | + + + + + + | Glucose, | 136 (H)Comment: Testing | 65 - 99 mg/dL | [facility] | | | POC | performed at [facility];[address] | | LABORATORY | | | | [address];[place] | | | | | | [address] | | | | + + + + + + + + | Specimen | + + | | + + + + + + + | Performing | Address | City/State/Zipcode | Phone Number | | Organization | | | | + + + + + | [facility] | [address] | [place] [address] | [phone] | + + + + + CK Total (12/25/2019 4:25 AM PDT) + + + + + + | Component | Value | Ref Range | Performed | Pathologist | | | | | At | Signature | + + + + + + | CK TOTAL | 104Comment: Testing | 55 - 400 U/L | [facility] | | | | performed at [facility];[address] | | LABORATORY | | | | [address];[place] | | | | | | [address] | | | | + + + + + + + + | Specimen | + + | Blood | + + + + + + + | Performing | Address | City/State/Zipcode | Phone Number | | Organization | | | | + + + + + | [facility] | [address] | [place] [address] | [phone] | + + + + + Renal [...] 13 (L)Comment: GFR <60: | >60 | [facility] | | | GFR | CHRONIC [...] | | | | | | MDRD IDTN traceable | | | | | | equation.Testing | | | | | | performed at [facility], [address] | | | | | [facility], | | | | | | [place] [address] | | | | + + + + + + + + | Specimen | + + | Blood | + + + + + + + | Performing | Address | City/State/Zipcode | Phone Number | | Organization | | | | + + + + + | [facility] | [address] | [place] [address] | [phone] | + + + + + Cytoplasmic [...] | | | | | with both UT-3 and | | | | | | [...] | | | | [address] [facility], | | | | | | [facility] [address] | | | | + + + + + + + + | Specimen | + + | Blood | + + + + + + + | Performing | Address | City/State/Zipcode | Phone Number | | Organization | | | | + + + + + | [facility] | [address] | [place] [address] | [phone] | + + + + + Sedimentation Rate (12/25/2019 4:22 AM PDT) + + + + + + | Component | Value | Ref Range | Performed | Pathologist | | | | | At | Signature | + + + + + + | ESR | 6Comment: Testing | 0 - 20 mm/Hr | [facility] | | | | performed at [facility], [address] | LABORATORY | | | | [address], | | | | | | [place] [address] | | | | + + + + + + + + | Specimen | + + | Blood | + + + + + + + | Performing | Address | City/State/Zipcode | Phone Number | | Organization | | | | + + + + + | [facility] | [address] | [place] [address] | [phone] | + + + + + Immunoglobulin, Free Light Chain (12/25/2019 4:22 AM PDT) + + + + + + | Component | Value | Ref Range | Performed | Pathologist | | | | | At | Signature | + + + + + + | Aguila Free | 121.2 (H) | 3.3 - [...] + + + + + + | Aguila/Lambd | 1.25Comment: Testing | 0.26 - 1.65 | [facility] | | | a Free | performed at [facility] | | LABORATORY | | | [facility] | [place], [address] | | | | | Ratio | [place] [address] | | | | + + + + + + + + | Specimen | + + | Blood | + + + + + + + | Performing | Address | City/State/Zipcode | Phone Number | | Organization | | | | + + + + + | [facility] | [address] | [place] [address] | [phone] | + + + + + Glomerular [...] | | | | | | [facility], [address] [place] [address] | | | | | | [place] | | | | | | [address] | | | | + + + + + + + + | Specimen | + + | Blood | + + + + + + + | Performing | Address | City/State/Zipcode | Phone Number | | Organization | | | | + + + + + | [facility] | [address] | [place] [address] | [phone] | + + + + + Hepatitis [...] | | | | | | 0.9The [facility] recommends | | | | | | that a positive HCV | | | | | | antibody resultbe | | | | | | followed up with a HCV | | | | | | Nucleic Acid | | | | | | Amplificationtest | | | | | | ([id number]).Testing | | | | | | performed at [facility], | | | | | | [address], | | | | | | [facility] [address] | | | | + + + + + + + + | Specimen | + + | Blood | + + + + + + + | Performing | Address | City/State/Zipcode | Phone Number | | Organization | | | | + + + + + | [facility] | [address] | [place] [address] | [phone] | + + + + + CK Total (12/25/2019 4:22 AM PDT) + + + + + + | Component | Value | Ref Range | Performed | Pathologist | | | | | At | Signature | + + + + + + | CK TOTAL | 100Comment: Testing | 55 - 400 U/L | [facility] | | | | performed at [facility];[address] | | LABORATORY | | | | [address];[place] | | | | | | [address] | | | | + + + + + + + + | Specimen | + + | Blood | + + + + + + + | Performing | Address | City/State/Zipcode | Phone Number | | Organization | | | | + + + + + | [facility] | [address] | [place] [address] | [phone] | + + + + + Lactate Dehydrogenase (12/25/2019 4:22 AM PDT) + + + + + + | Component | Value | Ref Range | Performed | Pathologist | | | | | At | Signature | + + + + + + | LDH TOTAL | 154Comment: Testing | 120 - 246 U/L | [facility] | | | | performed at [facility];[address] | | LABORATORY | | | | [address];[place] | | | | | | [address] | | | | + + + + + + + + | Specimen | + + | Blood | + + + + + + + | Performing | Address | City/State/Zipcode | Phone Number | | Organization | | | | + + + + + | [facility] | [address] | [place] [address] | [phone] | + + + + + Magnesium (12/25/2019 4:22 AM PDT) + + + + + + | Component | Value | Ref Range | Performed | Pathologist | | | | | At | Signature | + + + + + + | Magnesium | 2.5 (H)Comment: Testing | 1.7 - 2.4 mg/dL | [facility] | | | | performed at [facility], [address] | | LABORATORY | | | | [address], | | | | | | [place] [address] | | | | + + + + + + + + | Specimen | + + | Blood | + + + + + + + | Performing | Address | City/State/Zipcode | Phone Number | | Organization | | | | + + + + + | [facility] | [address] | [place] [address] | [phone] | + + + + + Protein, [...] LABORATORY | | | | performed at [facility], [address] | | | | | | [address] [facility] [facility], | | | | | | [place] [address] | | | | + + + + + + + + | Specimen | + + | | + + + + + + + | Performing | Address | City/State/Zipcode | Phone Number | | Organization | | | | + + + + + | [facility] | [address] | [place] [address] | [phone] | + + + + + Creatinine, Urine, Random (12/25/2019 12:01 AM PDT) + + + + + + | Component | Value | Ref Range | Performed | Pathologist | | | | | At | Signature | + + + + + + | Creatinine, | 139.0Comment: NO NORMAL | mg/dL | [facility] | | | random | [facility] ESTABLISHEDTesting | | LABORATORY | | | urine | performed at [facility], [address] | | | | | | [address], | | | | | | [place] [address] | | | | + + + + + + + + | Specimen | + + | | + + + + + + + | Performing | Address | City/State/Zipcode | Phone Number | | Organization | | | | + + + + + | [facility] | [address] | [place] [address] | [phone] | + + + + + Protein/Creatinine Ratio, Urine (12/25/2019 12:01 AM PDT) + + + + + + | Component | Value | Ref Range | Performed | Pathologist | | | | | At | Signature | + + + + + + | PRO/CREA | 0.942Comment: Testing | | [facility] | | | RATIO,URINE | performed at [facility], [address] | | LABORATORY | | | | [address], | | | | | | [place] [address] | | | | + + + + + + + + | Specimen | + + | Urine | + + + + + + + | Performing | Address | City/State/Zipcode | Phone Number | | Organization | | | | + + + + + | [facility] | [address] | [place] [address] | [phone] | + + + + + POC [...] | | | POC | performed at [facility];[address] | | LABORATORY | | | | [address];[place], [place] | | | | | | [address] | | | | + + + + + + + + | Specimen | + + | | + + + + + + + | Performing | Address | City/State/Zipcode | Phone Number | | Organization | | | | + + + + + | [facility] | [address] | [place] [address] | [phone] | + + + + + POC Glucose (12/24/2019 5:14 PM PDT) + + + + + + | Component | Value | Ref Range | Performed | Pathologist | | | | | At | Signature | + + + + + + | Glucose, | 136 (H)Comment: Testing | 65 - 99 mg/dL | [facility] | | | POC | performed at [facility];[address] | | LABORATORY | | | | [address];[place] | | | | | | [address] | | | | + + + + + + + + | Specimen | + + | | + + + + + + + | Performing | Address | City/State/Zipcode | Phone Number | | Organization | | | | + + + + + | [facility] | [address] | [place] [address] | [phone] | + + + + + ECG [...] | | | Arterial, | performed at [facility];[address] | | LABORATORY | | | POC | [address];[place], [place] | | | | | | [address] | | | | + + + + + + + + | Specimen | + + | | + + + + + + + | Performing | Address | City/State/Zipcode | Phone Number | | Organization | | | | + + + + + | [facility] | [address] | [place] [address] | [phone] | + + + + + Coronavirus (COVID-19) NAAT (12/24/2019 1:10 PM PDT) + + + + + + | Component | Value | Ref Range | Performed | Pathologist | | | | | At | Signature | + + + + + + | SARS-CoV-2, | NEGATIVEComment: Testing | NEG | [facility] | | | NAAT | performed at [facility];[address] | | LABORATORY | | | (COVID-19) | [address];[place] | | | | | | [address] | | | | + + + + + + + + | Specimen | + + | Tissue - Entire | | nasopharynx (body | | structure) | + + + + + + + | Performing | Address | City/State/Zipcode | Phone Number | | Organization | | | | + + + + + | [facility] | [address] | [place] [address] | [phone] | + + + + + Culture, [...] | | LABORATORY | | | | Blvd;[place] [address] | | | | + + + + + + | RESULT | NO GROWTH 6 DAYS | | [facility] | | | | | | LABORATORY | | + + + + + + | RESULT | Testing performed at | | [facility] | | | | [facility], [address] [facility] | | LABORATORY | | | | [address], [place], [place] | | | | | | [address]Xjagelm: Testing | | | | | | performed at [facility], [address] | | | | | | [address], [place], [place] | | | | | | [address] | | | | + + + + + + + + | Specimen | + + | Blood - Peripheral | | blood specimen | | (specimen) | + + + + + + + | Performing | Address | City/State/Zipcode | Phone Number | | Organization | | | | + + + + + | [facility] | [address] | [place] [address] | [phone] | + + + + + Culture, [...] | | LABORATORY | | | | [address];[place] [address] | | | | + + + + + + | RESULT | NO GROWTH 6 DAYS | | [facility] | | | | | | LABORATORY | | + + + + + + | RESULT | Testing performed at | | [facility] | | | | [facility], [address] [facility] | | LABORATORY | | | | [place], [place] | | | | | | [address]Xamgubh: Testing | | | | | | performed at [facility], [address] | | | | | | [facility], [place], [place] | | | | | | [address] | | | | + + + + + + + + | Specimen | + + | Blood - Peripheral | | blood specimen | | (specimen) | + + + + + + + | Performing | Address | City/State/Zipcode | Phone Number | | Organization | | | | + + + + + | [facility] | [address] | [place] [address] | [phone] | + + + + + Urinalysis [...] - 1.030 | [facility] | | | [place], | | | LABORATORY | | [...] | 1+ (A)Comment: Testing | NONE | [facility] | | | Urine | performed at [facility], [address] | | LABORATORY | | | | [address], | | | | | | [place] [address] | | | | + + + [...] + + + + + | [facility] | [address] | [place] [address] | [phone] | + + + + + Sodium, [...] | | | urine | performed at [facility], [address] | | | | | | [address], | | | | | | [place] [address] | | | | + + + [...] + + + + + | [facility] | [address] | [place] [address] | [phone] | + + + + + Creatinine, [...] | | | urine | performed at [facility], [address] | | | | | | [address], | | | | | | [place] [address] | | | | + + + [...] + + + + + | [facility] | [address] | [place] [address] | [phone] | + + + + + Lactic Acid (12/24/2019 12:27 PM PDT) + + + + + + | Component | Value | Ref Range | Performed | Pathologist | | | | | At | Signature | + + + + + + | Lactate, | 1.6Comment: Testing | 0.4 - 2.0 | [facility] | | | Serum | performed at [facility];[address] | mmol/L | LABORATORY | | | | [address];[place], [place] | | | | | | [address] | | | | + + + + + + + + | Specimen | + + | Blood | + + + + + + + | Performing | Address | City/State/Zipcode | Phone Number | | Organization | | | | + + + + + | [facility] | [address] | [place] [address] | [phone] | + + + + + Procalcitonin (12/24/2019 12:27 PM PDT) + + + + + + | Component | Value | Ref Range | Performed | Pathologist | | | | | At | Signature | + + + + + + | PROCALCITON | 0.69 (H)Comment: | <0.5 ng/mL | [facility] | | | IN | INTERPRETIVE [...] | | | | | | at [facility];[address] [place] [address] | | | | | | [facility];[place] [address] | | | | + + + + + + + + | Specimen | + + | Blood | + + + + + + + | Performing | Address | City/State/Zipcode | Phone Number | | Organization | | | | + + + + + | [facility] | [address] | [place] [address] | [phone] | + + + + + POC Glucose (12/24/2019 12:25 PM PDT) + + + + + + | Component | Value | Ref Range | Performed | Pathologist | | | | | At | Signature | + + + + + + | Glucose, | 143 (H)Comment: Testing | 65 - 99 mg/dL | [facility] | | | POC | performed at [facility];[address] | | LABORATORY | | | | [address];[place], [place] | | | | | | [address] | | | | + + + + + + + + | Specimen | + + | | + + + + + + + | Performing | Address | City/State/Zipcode | Phone Number | | Organization | | | | + + + + + | [facility] | [address] | [place] [address] | [phone] | + + + + + POC [...] | | | POC | performed at [facility];[address] | | LABORATORY | | | | [address];[place], [place] | | | | | | [address] | | | | + + + + + + + + | Specimen | + + | | + + + + + + + | Performing | Address | City/State/Zipcode | Phone Number | | Organization | | | | + + + + + | [facility] | [address] | [place] [address] | [phone] | + + + + + CBC [...] LABORATORY | | | | performed at [facility];[address] | | | | | | [address];[place], [place] | | | | | | [address] | | | | + + + + + + + + | Specimen | + + | Blood | + + + + + + + | Performing | Address | City/State/Zipcode | Phone Number | | Organization | | | | + + + + + | [facility] | [address] | [place] [address] | [phone] | + + + + + Basic [...] 16 (L)Comment: GFR <60: | >60 | [facility] | | | GFR | CHRONIC [...] | | | | | performed at [facility], [address] | | | | | | [facility], | | | | | | [place] [address] | | | | + + + + + + + + | Specimen | + + | Blood | + + + + + + + | Performing | Address | City/State/Zipcode | Phone Number | | Organization | | | | + + + + + | [facility] | [address] | [place] [address] | [phone] | + + + + + POC Glucose (12/23/2019 8:35 PM PDT) + + + + + + | Component | Value | Ref Range | Performed | Pathologist | | | | | At | Signature | + + + + + + | Glucose, | 135 (H)Comment: Testing | 65 - 99 mg/dL | [facility] | | | POC | performed at [facility];[address] | | LABORATORY | | | | [address];[place], [place] | | | | | | [address] | | | | + + + + + + + + | Specimen | + + | | + + + + + + + | Performing | Address | City/State/Zipcode | Phone Number | | Organization | | | | + + + + + | [facility] | [address] | [place] [address] | [phone] | + + + + + POC [...] | | | POC | performed at [facility];[address] | | LABORATORY | | | | [address];[place], [place] | | | | | | [address] | | | | + + + + + + + + | Specimen | + + | | + + + + + + + | Performing | Address | City/State/Zipcode | Phone Number | | Organization | | | | + + + + + | [facility] | [address] | [place] [address] | [phone] | + + + + + POC Glucose (12/23/2019 2:05 PM PDT) + + + + + + | Component | Value | Ref Range | Performed | Pathologist | | | | | At | Signature | + + + + + + | Glucose, | 158 (H)Comment: Testing | 65 - 99 mg/dL | [facility] | | | POC | performed at [facility];[address] | | LABORATORY | | | | [address];[place] | | | | | | [address] | | | | + + + + + + + + | Specimen | + + | | + + + + + + + | Performing | Address | City/State/Zipcode | Phone Number | | Organization | | | | + + + + + | [facility] | [address] | [place] [address] | [phone] | + + + + + POC Glucose (12/23/2019 7:21 AM PDT) + + + + + + | Component | Value | Ref Range | Performed | Pathologist | | | | | At | Signature | + + + + + + | Glucose, | 122 (H)Comment: Testing | 65 - 99 mg/dL | [facility] | | | POC | performed at [facility];[address] | | LABORATORY | | | | [address];[place] | | | | | | [address] | | | | + + + + + + + + | Specimen | + + | | + + + + + + + | Performing | Address | City/State/Zipcode | Phone Number | | Organization | | | | + + + + + | [facility] | [address] | [place] [address] | [phone] | + + + + + Basic [...] CITY;[address] | | | | | | [facility];[place], [place] | | | | | | [address] | | | | + + + + + + + + | Specimen | + + | Blood | + + + + + + + | Performing | Address | City/State/Zipcode | Phone Number | | Organization | | | | + + + + + | [facility] | [address] | [place] [address] | [phone] | + + + + + Phosphorus (12/23/2019 4:04 AM PDT) + + + + + + | Component | Value | Ref Range | Performed | Pathologist | | | | | At | Signature | + + + + + + | Phosphorus | 4.6Comment: Testing | 2.3 - 4.8 mg/dL | [facility] | | | | performed at [facility];[address] | | LABORATORY | | | | [address];[place], [place] | | | | | | [address] | | | | + + + + + + + + | Specimen | + + | Blood | + + + + + + + | Performing | Address | City/State/Zipcode | Phone Number | | Organization | | | | + + + + + | [facility] | [address] | [place] [address] | [phone] | + + + + + Magnesium (12/23/2019 4:04 AM PDT) + + + + + + | Component | Value | Ref Range | Performed | Pathologist | | | | | At | Signature | + + + + + + | Magnesium | 2.1Comment: Testing | 1.7 - 2.4 mg/dL | [facility] | | | | performed at [facility];[address] | | LABORATORY | | | | [address];[place], [place] | | | | | | [address] | | | | + + + + + + + + | Specimen | + + | Blood | + + + + + + + | Performing | Address | City/State/Zipcode | Phone Number | | Organization | | | | + + + + + | [facility] | [address] | [place] [address] | [phone] | + + + + + CBC [...] LABORATORY | | | | performed at [facility];[address] | | | | | | [address];[place] | | | | | | [address] | | | | + + + + + + + + | Specimen | + + | Blood | + + + + + + + | Performing | Address | City/State/Zipcode | Phone Number | | Organization | | | | + + + + + | [facility] | [address] | [place] [address] | [phone] | + + + + + Hemoglobin (12/22/2019 9:37 PM PDT) + + + + + + | Component | Value | Ref Range | Performed | Pathologist | | | | | At | Signature | + + + + + + | Hemoglobin | 9.1 (L)Comment: Testing | 13.2 - 17.0 | [facility] | | | | performed at [facility];[address] | g/dL | LABORATORY | | | | [address];[place] | | | | | | [address] | | | | + + + + + + + + | Specimen | + + | Blood | + + + + + + + | Performing | Address | City/State/Zipcode | Phone Number | | Organization | | | | + + + + + | [facility] | [address] | [place] [address] | [phone] | + + + + + Hematocrit (12/22/2019 9:37 PM PDT) + + + + + + | Component | Value | Ref Range | Performed | Pathologist | | | | | At | Signature | + + + + + + | Hematocrit | 27.4 (L)Comment: Testing | 39.0 - 50.0 % | [facility] | | | | performed at [facility];[address] | | LABORATORY | | | | [address];[place] | | | | | | [address] | | | | + + + + + + + + | Specimen | + + | Blood | + + + + + + + | Performing | Address | City/State/Zipcode | Phone Number | | Organization | | | | + + + + + | [facility] | [address] | [place] [address] | [phone] | + + + + + POC [...] | | | POC | performed at [facility];[address] | | LABORATORY | | | | [address];[place], [place] | | | | | | [address] | | | | + + + + + + + + | Specimen | + + | | + + + + + + + | Performing | Address | City/State/Zipcode | Phone Number | | Organization | | | | + + + + + | [facility] | [address] | [place] [address] | [phone] | + + + + + POC Glucose (12/22/2019 5:32 PM PDT) + + + + + + | Component | Value | Ref Range | Performed | Pathologist | | | | | At | Signature | + + + + + + | Glucose, | 153 (H)Comment: Testing | 65 - 99 mg/dL | [facility] | | | POC | performed at [facility];[address] | | LABORATORY | | | | [address];[place] | | | | | | [address] | | | | + + + + + + + + | Specimen | + + | | + + + + + + + | Performing | Address | City/State/Zipcode | Phone Number | | Organization | | | | + + + + + | [facility] | [address] | [place] [address] | [phone] | + + + + + Red [...] | [facility] | | | COMMENT | [facility];[address] | | LABORATORY | | | | [address];[place] [address] | | | | + + + + + + + + | Specimen | + + | | + + + + + + + | Performing | Address | City/State/Zipcode | Phone Number | | Organization | | | | + + + + + | [facility] | [address] | [place] [address] | [phone] | + + + + + POC Glucose (12/22/2019 10:38 AM PDT) + + + + + + | Component | Value | Ref Range | Performed | Pathologist | | | | | At | Signature | + + + + + + | Glucose, | 161 (H)Comment: Testing | 65 - 99 mg/dL | [facility] | | | POC | performed at [facility];[address] | | LABORATORY | | | | [address];[place] | | | | | | [address] | | | | + + + + + + + + | Specimen | + + | | + + + + + + + | Performing | Address | City/State/Zipcode | Phone Number | | Organization | | | | + + + + + | [facility] | [address] | [place] [address] | [phone] | + + + + + NATHALIA [...] | | | POC | performed at [facility];[address] | g/dL | LABORATORY | | | | [address];[place] | | | | | | [address] | | | | + + + + + + + + | Specimen | + + | | + + + + + + + | Performing | Address | City/State/Zipcode | Phone Number | | Organization | | | | + + + + + | [facility] | [address] | [place] [address] | [phone] | + + + + + POC [...] | | | POC | performed at [facility];[address] | g/dL | LABORATORY | | | | [address];[place], [place] | | | | | | [address] | | | | + + + + + + + + | Specimen | + + | | + + + + + + + | Performing | Address | City/State/Zipcode | Phone Number | | Organization | | | | + + + + + | [facility] | [address] | [place] [address] | [phone] | + + + + + POC [...] | | | POC | performed at [facility];[address] | g/dL | LABORATORY | | | | [address];[place] | | | | | | [address] | | | | + + + + + + + + | Specimen | + + | | + + + + + + + | Performing | Address | City/State/Zipcode | Phone Number | | Organization | | | | + + + + + | [facility] | [address] | [place] [address] | [phone] | + + + + + POC [...] (L)Comment: Testing | 13.7 - 16.7 | [facility] | | | POC | performed at [facility];888 | g/dL | LABORATORY | | | | [address];[place], [place] | | | | | | [address] | | | | + + + + + + + + | Specimen | + + | | + + + + + + + | Performing | Address | City/State/Zipcode | Phone Number | | Organization | | | | + + + + + | [facility] | [address] | [place] [address] | [phone] | + + + + + Type [...] + + + | BB BAND | [id number] | | [facility] | | | | | | LABORATORY | | + + + + + + | UNIT # | [id number] | | [facility] | | | | [...] | | | RESULT | performed at [facility];[address] | | LABORATORY | | | | [address];[place], [place] | | | | | | [address] | | | | + + + + + + | UNIT # | [id number] | | [facility] | | | | [...] [facility] | [address] | [place] [address] | [phone] | + + + + + POC [...] | | | POC | performed at [facility];[address] | | LABORATORY | | | | [address];[place], [place] | | | | | | [address] | | | | + + + + + + + + | Specimen | + + | | + + + + + + + | Performing | Address | City/State/Zipcode | Phone Number | | Organization | | | | + + + + + | [facility] | [address] | [place] [address] | [phone] | + + + + + Protime [...] [place] | | | | | | [address] | | | | + + + + + + + + | Specimen | + + | Blood | + + + + + + + | Performing | Address | City/State/Zipcode | Phone Number | | Organization | | | | + + + + + | [facility] | [address] | [place] [address] | [phone] | + + + + + CBC [...] | | | Absolute | performed at [facility], [address] | [address]L | LABORATORY | | | | [address], | | | | | | [place] [address] | | | | + + + + + + + + | Specimen | + + | Blood | + + + + + + + | Performing | Address | City/State/Zipcode | Phone Number | | Organization | | | | + + + + + | [facility] | [address] | [place] [address] | [phone] | + + + + + Magnesium (12/22/2019 5:26 AM PDT) + + + + + + | Component | Value | Ref Range | Performed | Pathologist | | | | | At | Signature | + + + + + + | Magnesium | 2.6 (H)Comment: Testing | 1.7 - 2.4 mg/dL | [facility] | | | | performed at [facility], [address] | LABORATORY | | | | [address], | | | | | | [place] [address] | | | | + + + + + + + + | Specimen | + + | Blood | + + + + + + + | Performing | Address | City/State/Zipcode | Phone Number | | Organization | | | | + + + + + | [facility] | [address] | [place] [address] | [phone] | + + + + + Basic [...] | | | | | performed at [facility], [address] | | | | | [address], | | | | | | [place] [address] | | | | + + + + + + + + | Specimen | + + | Blood | + + + + + + + | Performing | Address | City/State/Zipcode | Phone Number | | Organization | | | | + + + + + | [facility] | [address] | [place] [address] | [phone] | + + + + + POC [...] | | | POC | performed at [facility];[address] | | [address]AT[address] | | | | [address];[place], [place] | | | | | | [address] | | | | + + + + + + + + | Specimen | + + | | + + + + + + + | Performing | Address | City/State/Zipcode | Phone Number | | Organization | | | | + + + + + | [facility] | [address] | [place] [address] | [phone] | + + + + + POC [...] | | | POC | performed at [facility];[address] | | LAB[address]AT[address] | | | | [address];[place] | | | | | | [address] | | | | + + + + + + + + | Specimen | + + | | + + + + + + + | Performing | Address | City/State/Zipcode | Phone Number | | Organization | | | | + + + + + | [facility] | [address] | [place] [address] | [phone] | + + + + + documented [...] | | | | | | Starting [facility] 12/26/19 at 1637 | | | [...] | | | | | | | [id number] Use NIGHT DOSE for | | | | | | | doses scheduled: HS, | | | | | | | Nighttime [id number] If the BG is | | | [...]
--- OUTSIDE RECORDS SUMMARY | ~2020-03-21 | XMS | Encounter Summary ---
Demographics + + + | Address | [address] | | | [place] [address] | + + + | Home Phone [...] [place] | | | | | [address] | | + + + + + | Deanna Lawson | ECON | Unknown | | + + + + + Care Team Providers + +------+ + | Care Stock Turner Name | Role | Phone | + +------+ + PCP | Unavailable | + +------+ + Encounter Details +--------+ + + + + | Date | Type | Department | Care Team | Description | +--------+ + + + + | 07/25/ | Hospital | [facility] | Yoli Harding MD | Dyspnea, unspecified | | 2017 - | Encounter | [facility] | [address] | type; Fatigue, | | | | CARE FLOOR [address] | [place] [address] | unspecified type; | | 07/29/ | | [address] | [phone] | Altered mental | | 2016 | | [place], [place] | | status, unspecified | | | | [address] | | altered mental | | | | [phone] | | status type; | | | [...] Date of Service: 07/29/17 1003 Status: Signed Recreation Worker: Gutierrez Lopez MD (Physician) [facility] Service: Hospitalist Discharge Summary Date of Admission: [...] with congestive heart failure clinic, arranged by rn field case manager and outpatient sharon metzger. Past [...] Take 500 mg by mouth daily. 07/24/2017@0700 Osytktj-Kriuoyayl-Vjwkhas D 600-40-500 MG-MG-UNIT TB24 Take 1,200 mg [...] Take 1 tablet by mouth daily. 2016@00 Washburn 3 1000 MG CAPS Take 1 capsule [...] 98.3 F (36.8 C) (Oral) | R elina 18 | Ht 1.651 m (5' 5") [...] As indicated below and as discussed by rn field case manager's at Bedside. Disposition: Home Condition: Stable Code Status: Full Code Discharge Instructions Diet Cardiac Diet Low Sodium Activity as Tolerated Follow up: ENEDINA Dickerson [address] [facility] [id number] Go on 07/31/2017 Hospital Follow Up Guided Patient Services Guided Patient Services GPS Structural Steel Painter- JIAN Harmon [phone] Mon-Fri 7:30 AM 4:00 PM Call for any questions or concerns after your discharge home, or for help making follow up appointments. ENEDINA Sandoval [address] [place] [address] On 08/08/2017 Post-Hopsital discharge Follow-up. Medication List [...] Refills: 0 Commonly known as: VITAMIN C Gdetrmj-Guedkvhir-Sljntnf D 600-40-500 MG-MG-UNIT Tb24 Refills: 0 glipiZIDE [...] (none) Author Type: Registered Nurse Filed: 07/29/17 4642 Date of Service: 07/29/171344 Status: Signed Recreation Worker: Valeria Martinez RN (Registered Nurse) Patient discharged home via private vehicle with family. Heart failure education completed, all discharge instructions discussed. Patient has heart failure education packet and paper prescriptions in possession. All questions answered, all patient belongings with family. Shalini oleary wheeled out with OIL DISTRIBUTOR TENDER, all vital signs stable upon discharge. VALERIA MARTINEZ RN onver jose a Transaction, Provider Unknown - 07/28/2017 3:18 PM PST Progress Notes by Carina Quintero CMA at 07/28/17 6249 Author: Carina Quintero CMA Service: (none) Author Type: Compo Conveyor Operator Filed: 07/28/17 1190 Date of Service: 07/28/171517 Status: Signed Recreation Worker: Carina Quintero CMA (Compo Conveyor Operator) GPS- Patient enrolled. Scheduled to see Abril on 08/08 and PCP on 07/31 onver jose a Transaction, Provider Unknown - 07/28/2017 2:43 PM PST Case Management by Yousuf Mcfadden RN at 07/28/17 1443 Author: Yousuf Mcfadden RN Service: (none) Author Type: Registered Nurse Filed: 07/28/17 1444 Date of Service: 07/28/17 144 Status: Signed Recreation Worker: Yousuf Mcfadden RN (Registered Nurse) I met with patient in rounds, he is enrolled in the CHF program through [facility] a nd has follow up schedule with his cardiologists. bleGutierrez lyn MD - 07/28/2017 6:56 AM PST Progress Notes by Gutierrez Lopez MD at 07/28/17 0656 Author: Gutierrez Lopez MD Service: Hospitalist Author Type: Physician Filed: 07/28/17 1342 Date of Service: 07/28/1756 Status: Signed Recreation Worker: Gutierrez Lopez MD (Physician) [facility] Service: Hospitalist Progress Note Hospital Day: LOS: [...] 07/28/17617 Date of Service: 07/28/17612 Status: Signed Recreation Worker: Stacey Ley RN (Registered Nurse) Patient [...] Date of Service: 07/27/17 1015 Status: Signed Recreation Worker: Gutierrez Lopez MD (Physician) [facility] Service: Hospitalist Progress Note Hospital Day: LOS: [...] (none) Author Type: Registered Nurse Filed: 07/26/17 5970 Date of Service: 07/26/17 143 Status: Signed Recreation Worker: Yousuf Mcfadden RN (Registered Nurse) 07/26/17 143 [...] independent an d lives with his in [place]. He goes to [facility] for his coumadin checks an d doesn't use any DME. Andres denies having needs for discharge. Patient's PCP is:Janie Beltrán Patient's insurance:Medicare and Novalact Coverage concerns: none Medication coverage/concerns: yes/no Community [...] Date of Service: 07/26/17 0809 Status: Signed Recreation Worker: Nathen Coughlin MD (Physician) [facility] Service: Hospitalist Progress Note Pt: Andres Mcconnell [...] last discharge his hgb was 8.1 in waterflow. He was given iv lasix with improvement [...] and managing patient and counseling/coordination. Dictation software, ACTON, used which may contain error for similar [...] Author: Demond Sandy Service: (none) Author Type: Ski Lift Operator Filed: 07/25/171950 Date of Service: 07/25/171946 Status: Signed Recreation Worker: Demond Sandy () Visit per pt req. Pt sitting up in bed, pt (Marissa) sitting next to bed. Pt welcomed vi sit. Chp provided caring listening. Pt did some life review - talked proudly about his & wif e's 63 years of marriage & 3 children. Pt also explained he & are [employer], an d quite involved there. Day RN & night RN came in to do hand-off report. Pt & both said how great the care has been & how they've enjoyed their nurses. Positive visit with kindly couple. Ski Lift Operatortavo Sandy onver jose a Transaction, Provider Unknown - 07/25/2017 2:49 PM PST Pharmacy Note by Renuka Reno RPH at 07/25/171448 Author: Renuka Reno RPH Service: Pharmacy Author Type: Pharmacist Filed: 07/25/171448 Date of Service: 07/25/17 1449 Status: Signed Recreation Worker: Renuka Reno RPH (Pharmacist) Renal Dosing [...] Date of Service: 07/25/17 1230 Status: Signed Recreation Worker: Yoli Harding MD (Physician) Related Notes: Original Note by Yoli Harding MD (Physician) filed at 07/25/17 1423 [facility] Service: Hospitalist Admission History & Physical Date [...] GI bleeding when he was seen at [facility] from June 23, 2017, to June [...] weight gain since the last 1 mo [facility]. He drinks about 3 to 4 L of fluids daily but is compliant with his diet restriction and compliant with his medications. His labs on discharge at the [facility] showe d a hemoglobin of [...] kidney injury (HCC) ASSESSMENT & PLAN 1. Cstvb-np-apaezve diastolic congestive heart failure most likely secondary [...] the primary care physician genia t the [place]. His INR is subtherapeutic at 1.6. We [...] Date of Service: 07/25/17 1042 Status: Signed Recreation Worker: Mikey Reynaga MD (Physician) Procedure Orders: 1. POCT occult blood stool [[id number]] ordered by Mikey Reynaga MD at 07/25/17 1410 [facility] Department of Emergency Medicine 10:42 AM History [...] since hospital admission. Patient last s aw spares scheduler 6 weeks ago. Does not have a PCP. No history of COPD, emphysema, or asthma. Smoker years ago for about 30 years. Taking Lasix. Loom Checker: Charlee Oswald Past Medical History Diagnosis Date [...] 500 mg by mouth daily. Historical Provider Sqbqdls-Mhiqvuada-Fvzlygg D 600-40-500 MG-MG-UNIT TB24 Take 1,200 mg [...] Take by mouth daily. Historical Provi immanuel Washburn-3 Fatty Acids (OMEGA 3 PO) Take by [...] Component Value Ref Range Date/Time Cardiac Panel [[id number]] (Abnormal) Collected: 07/25/17 1051 Order Status: Completed [...] ng/mL CK-MB Index 3.2 Troponin I, Lab [[id number]] Collected: 07/25/17 105 Order Status: Completed Specimen: Blood Updated: 07/25/17 1127 TROPONIN I <0.020 0.00 - 0.10 ng/mL BNP [[id number]] (Abnormal) Collected: 07/25/17 1051 Order Status: Completed [...] negative stool. Performed by ED provider. Hemoccult corporate quality manager Passed. Attending Provider Note: IMikey MD personally [...] Date of Service: 07/25/17 1010 Status: Signed Recreation Worker: Michelle Dawson RN (Registered Nurse) 87 yr [...] Date of Service: 07/29/17 1300 Status: Signed Recreation Worker: Valeria Martinez RN (Registered Nurse) Problem: Discharge [...] 0552 Date of Service: 07/28/172208 Status: Addendum Recreation Worker: Wanda Levine RN (Registered Nurse) Related Notes: [...] 07/28/171728 Date of Service: 07/28/171726 Status: Signed Recreation Worker: Valeria Martinez RN (Registered Nurse) Problem: Fluid [...] 07/28/17511 Date of Service: 07/28/17511 Status: Signed Recreation Worker: Stacey Ley RN (Registered Nurse) Problem: Fluid [...] 07/27/171529 Date of Service: 07/27/171529 Status: Signed Recreation Worker: Candice Rodriguez RN (Registered Nurse) Problem: Fluid [...] 07/27/17437 Date of Service: 07/27/17437 Status: Signed Recreation Worker: Bhumi Chaparro RN (Registered Nurse) Problem: Safety [...] 07/27/17435 Date of Service: 07/27/17435 Status: Signed Recreation Worker: Bhumi Chaparro RN (Registered Nurse) Problem: Safety [...] 07/26/17603 Date of Service: 07/26/17603 Status: Signed Recreation Worker: Bhumi Chaparro RN (Registered Nurse) Problem: Safety [...] 07/25/171515 Date of Service: 07/25/171514 Status: Signed Recreation Worker: Valeria Martinez RN (Registered Nurse) Problem: Fluid [...] 07/25/171437 Date of Service: 07/25/171437 Status: Signed Recreation Worker: Ramandeep Abbott RPH (Pharmacist) Rx Admission Medication History Note I have reviewed the medication history for appropriate doses obtained by: Pharmacy Medicat ion History Special Education Bus Driver. After reviewing the home medication list : I agree with the home medication list. - Removed aspirin as no longer taking - Patient does not follow with the [facility], however, he knew his doses and t akes it every night at 1800. Last does was 07/24/17 Please Review and Order Home Medications as necessary. Thanks Ramandeep Abbott RPH 07/25/2017 2:37 PM >> Donna Hernandez CPhT 07/25/2017 14:29 Rx Medication History Special Education Bus Driver Note Patients Preferred Pharmacy has been updated in EPIC: yes -[facility] - [place], [place] - [address] [place] [address] Patients Allergies have been updated and marked [...] [address] | | | | | | [place] [address] | | | | | | [phone] | | | | | | | | +--------+ + + + + | 03/24/ | Hospital | | Anna Edouard, | Esophagitis | | 2019 | Encounter | | MD [address] | | | | | | [place] [address] | | | | | | [phone] | | | | | | | | +--------+ + + + + | 03/24/ | Surgery | | Anna Edouard | EGD | | 2019 | | | [address] | | | | | | [place] [address] | | | | | | [phone] | | | | | | | | +--------+ + + + + | 03/31/ | Office | Orthopedic Surgery | Melquiades Baez | | | 2019 | Visit | | DO [address] | | | | | | [place], | | | | | | [place] [address] | | | | | | [phone] | | | | | | | | +--------+ + + + + | 04/21/ | Office | Nephrology | Isiah Jade MD | | | 2019 | Visit | | [address] [facility] | | | | | | [address] | | | | | | [address] | | | | | | | | +--------+ + + + + | 05/07/ | Office | Cardiology | Charlee Oswald | | | 2020 | Visit | | [address] | | | | | | [address] | | | | | | [place] [address] | | | | | | [phone] | | | | | | | [...] | | | Fingerstick | performed at [facility];[address] | | LAB | | | [address];[place], [place] | | | | | | [address] | | | | + + + [...] | | | Fingerstick | performed at [facility];[address] | | LAB | | | | [address];[place], [place] | | | | | | [address] | | | | + + + [...] | | | Fingerstick | performed at [facility];[address] | | LAB | | | | [address];[place], [place] | | | | | | [address] | | | | + + + [...] | | | | | performed at [facility] | | | | | | [facility];[place], [place] | | | | | | [address] | | | | + + + [...] | | | Basophils | performed at [facility], [address] | [address] | LAB | | | | [address], | | | | | | [place] [address] | | | | + + + [...] EXTERNAL | | | | performed at [facility], [address] | | LAB | | | | [address], | | | | | | [place] [address] | | | | + + + [...] | | | | | | at [facility], [address] | | | | | | [address], | | | | | | [place] [address] | | | | + + [...] | | | Fingerstick | performed at [facility];[address] | | LAB | | | [address];[place], [place] | | | | | | [address] | | | | + + + [...] | | | Fingerstick | performed at [facility];[address] | | LAB | | | | [address];[place] | | | | | | [address] | | | | + + + [...] | | | Fingerstick | performed at [facility];[address] | | LAB | | | | [address];[place], [place] | | | | | | [address] | | | | + + + [...] RECEIVEDAbnormal | | | Testing performed at [facility];[address] [facility];[place] [address] | | + + + + +---------+ [...] | | | Fingerstick | performed at [facility];[address] | | LAB | | | | [address];[place], [place] | | | | | | [address] | | | | + + + [...] | | | | | performed at [facility] | | | | | | [address] [facility];[place], [place] | | | | | | [address] | | | | + + + [...] | | | Basophils | performed at [facility], [address] | K/[address] | LAB | | | | [address], | | | | | | [place] [address] | | | | + + + [...] | | | | | [place] [address] | | | | + + + [...] | | | Fingerstick | performed at [facility];[address] | | LAB | | | [address];[place], [place] | | | | | | [address] | | | | + + + [...] | | | Fingerstick | performed at [facility] | | LAB | | | | [address];[place] | | | | | | [address] | | | | + + + [...] | | | Urine | performed at [facility], [address] | | | | | | [address], | | | | | | [place] [address] | | | | + + + [...] LAB | | | | performed at [facility], [address] | | | | | | [address], | | | | | | [place] [address] | | | | + + + [...] | | | Fingerstick | performed at [facility];[address] | | LAB | | | | [address];[place], [place] | | | | | | [address] | | | | + + + [...] | | | Fingerstick | performed at [facility];[address] | | LAB | | | | [address];[place] | | | | | | [address] | | | | + + + [...] | | | | | | [place] [address] | | | | + + + [...] | | | | | performed at [facility];[address] | | | | | | [address];[place], [place] | | | | | | [address] | | | | + + + [...] | | | Reticulocyt | performed at [facility], [address] | | LAB | | | [address] Count | [address] | | | | | | [place] [address] | | | | + + + [...] | | | Basophils | performed at [facility], [address] | K/uL | LAB | | | | [address], | | | | | | [place] [address] | | | | + + + [...] | | | External | performed at [facility], [address] | | LAB | | | | [address], | | | | | | [place] [address] | | | | + + + [...] | | | | | | at [facility], [address] | | | | | | [facility], | | | | | | [place] [address] | | | | + + + [...] | | | Fingerstick | performed at [facility];[address] | | LAB | | | | [address];[place] | | | | | | [address] | | | | + + + [...] | | | Fingerstick | performed at [facility];[address] | | LAB | | | | [address];[place], [place] | | | | | | [address] | | | | + + + [...] | | | Fingerstick | performed at [facility];[address] | | LAB | | | | [address];[place], [place] | | | | | | [address] | | | | + + + [...] aortic stenosis. | | | Mitral Valve: Hwet-mt-rvawgzgn mitral regurgitation is present. | | | [...] 1.88 cm AR Dec | | | Emery: 2.33 m/s2 AR Dec Time: 1398.10 ms [...] TV A Good: 0.32 m/s TV Dec Emery: 2.31 m/s2 | | | TV Dec Time: 215.03 ms TV E Good: 0.49 m/s TV E/A Ratio: | | | 1.53 Automatic Profile Sander Operator: DOMITILA Authenticated by: JENNIFER SWAIN MD | | | Report Date/Time: -- [id number]:39:27 | | + + + + + [...] evidence of aortic stenosis.Mitral Valve: | | Yvjy-iu-awnftoqv mitral regurgitation is present.Mitral Valve: Mild mitral [...] BPMR-R: 973.47 msLAESV(A-L): 99.35 mlLAAs A2C: 27.25 [id number] A-L A2C: 99.85 | | mlLAESV MOD A2C: 93.96 mlLALs A2C: 6.31 cmLAAs A4C: 26.56 [id number] A-L A4C: | | 96.85 mlLAESV MOD A4C: 88.08 mlLALs A4C: 6.18 cmTAPSE: 1.88 cmAR Dec Emery: 2.33 | | m/s2AR Dec Time: 1398.10 msAR maxP.73 mmHgAR PHT: 405.45 msAR Vmax: 3.26 | | m/sHR: 64.46 BPMAV maxP.44 mmHgAV meanP.16 mmHgAV Vmax: 1.36 m/Armen | | Vmean: 0.98 m/Armen VTI: 29.20 cmAVA Vmax: 2.97 cm2AVA (VTI): 2.95 uj8PWRB Dopp: | | 5.01 l/minHR: 58.18 BPMLVOT [...] A | | Good: 0.32 m/sTV Dec Emery: 2.31 m/s2TV Dec Time: 215.03 msTV E Good: 0.49 m/sTV | | E/A Ratio: 1.53 Automatic Profile Sander Operator: GDAuthenticated by: JENNIFER SANTANAyale new haven hospital | | Date/Time: -- [id number]:39:27 IMPRESSION: 1. Left ventricular systolic function is [...] | |TAPSE: 1.88 cm | |AR Dec Emery: 2.33 m/s2 | |AR Dec Time: 1398.10 [...] A Good: 0.32 m/s | |TV Dec Emery: 2.31 m/s2 | |TV Dec Time: 215.03 ms | |TV E Good: 0.49 m/s | |TV E/A Ratio: 1.53 | | | |Automatic Profile Sander Operator: GD | |Authenticated by: JENNIFER SWAIN MD | |Report Date/Time: -- [id number]:39:27 | | | |IMPRESSION: | |1. Left [...] | | | Fingerstick | performed at [facility];[address] | | LAB | | | | [facility];[place], [place] | | | | | | [address] | | | | + + + [...] | | | | | performed at [facility] | | | | | | [address] [facility];[place], [place] | | | | | | [address] | | | | + + + [...] | | | Basophils | performed at [facility], [address] | [address]/u[address] | LAB | | | | [address], | | | | | | [place] [address] | | | | + + + [...] EXTERNAL | | | | performed at [facility], [address] | uIU/mL | LAB | | | | [address], | | | | | | [place] [address] | | | | + + + [...] | | | | | [place] [address] | | | | + + + [...] EXTERNAL | | | | performed at [facility];[address] | | LAB | | | | [address];[place], [place] | | | | | | [address] | | | | + + + [...] EXTERNAL | | | | performed at [facility], [address] | | LAB | | | | [address], | | | | | | [place] [address] | | | | + + + [...] + + | Hemoglobin | 5.5Comment: The Ghanaian | 4.0 - 6.0 % | EXTERNAL [...] | | | | | performed at [facility], [address] | | | | | | [facility], | | | | | | [place] [address] | | | | + + + [...] [address], | | | | | | [place] [address] | | | | + + + [...] | | | | | performed at [facility];[address] | | | | | | [facility];[place], [place] | | | | | | [address] | | | | + + + [...] | | | Fingerstick | performed at [facility];[address] | | LAB | | | | [address];[place] | | | | | | [address] | | | | + + + [...] | | | | | performed at [facility];[address] | | | | | | [address];[place], [place] | | | | | | [address] | | | | + + + [...] | | | Fingerstick | performed at [facility];[address] | | LAB | | | | [address];[place] | | | | | | [address] | | | | + + + [...] - 04/03/2019 7:51 PM PDT ANDRES Kilpatrick EICHHOLZ[birth year] years MaleXR | | CHEST 2 VIEW FRONTAL AND JIOFCYJ05/5/2017 11:18 AM INDICATION: Shortness of breath | [...] | | | | | performed at [facility];[address] | | | | | | [facility];[place], [place] | | | | | | [address] | | | | + + + [...] EXTERNAL | | | | performed at [facility];[address] | | LAB | | | | [address];[place] | | | | | | [address] | | | | + + + [...] | | Performed by ED provider. Hemoccult corporate quality manager Passed. | | + + + + [...] (500), | | | | | | electronic news gathering editor ART BROWN (2) | | | | | | on 07/25/2017 5:09:42 PM | | | | | | | | | | + + + + + + + + | Specimen | + + | | + + + + + | Narrative | Performed At | + + + | Historically converted procedure from [facility] | EXTERNAL LAB | + [...]
--- OUTSIDE RECORDS SUMMARY | ~2020-03-21 | XMS | Encounter Summary ---
Demographics + + + | Address | [address] | | | [place] [address] | + + + | Home Phone | | + + + | Preferred Language | Unknown | + + + | Marital Status | | + + + | Sikh Affiliation | 1001 | + + + | Race | Unknown | + + + | Ethnic Group | Unknown | + + + Author + + + | Author | [facility] | | | and [place] | + + + | Organization | 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 Exercises with [employer] and yard work, tolerates without chest pain or dyspnea. 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 Also worked for a [employer] company and then a [employer], but now just enjoys his leisure [...] or rhonchi noted, respirations unlab ored HEART: [facility] pacemaker site well Healed, stable to [...] : 02/04/2019: ( Dr. Thompson) : new GeoTrac Accolade MRI com patible model L310, serial #[id number] pacemaker. The current lead is a Bennett Resverlogix model 4136, serial #[id number].Mode for pacing, VVIR with dual-sensor technology programmed on. T he lower rate will be 60 and upper rate 120beats per minute. The output will be 2 volts at 0.4 milliseconds with sensitivity of 2.5 millivolts. Pacing and sensing will be bipolar Previous Implant Pacemaker/ICD: 07/30/2010, SYDNEE Altrajinder S601, SN: [id number]. [facility]. Last pacer interrogation: 11/11/2019: Battery longevity 9 years. Pacer dependent. RV paci n%. No atrial lead, unable to monitor burden of atrial fibrillation. No ventricular high rate episodes. Lead impedance and threshold values acceptable. CHF parameters and ethan nds reviewed and stable. pacer interrogation: 05/07/2019: ( Dr. Thompson) : Normal device function was seen today for th is Bennett Scientific single-chamber device. The pacing threshold was [...] 15 mmHg. Normal pulmonic valve with mild GA. Sinus of Valsalva dilated about 4.26 cm, [...] change, except less pulmonar y hypertension Echo:07/26/2017: [facility]: EF >70 percent. LV normal [...] BILI 0.6,ALB 3.9 Labs: 02/18/2018: ([facility] CBC: WBC 6.2, RBC 3.46, hemoglobin [...] 73. Thyroid: TSH 3.55 Labs: 08/23/2018: ( [facility]): CBC: WBC 6.6, RBC 2.92, [...] atrial fi b with a very high [id number]- VASC score of 6. For his cardiac [...] with Dr. Dina Sanchez 01/22/2020 for primary psychologist private practice, as well as seeing me. I also referred him for sleep apnea evaluation with Dr. Dorsey at the [facility] sleep disorders clinic due to his [...] notes for [facility] Adoyvette gregory in this encounter Plan of Treatment +--------+ + + + + | Date | Type | Specialty | Care Team | Description | +--------+ + + + + | 03/23/ | Preadmit | Pre-Admission | nAna Edouard, | | | 2019 | Visit | Testing | MD [address] | | | | | | [place] [address] | | | | | | [phone] | | | | | | | | +--------+ + + + + | 03/24/ | Hospital | | Anna Edouard, | Esophagitis | | 2019 | Encounter | | MD [address] | | | | | | [place] [address] | | | | | | [phone] | | | | | | | | +--------+ + + + + | 03/24/ | Surgery | | Anna Edouard | EGD | | 2019 | | | [address] | | | | | | [place] [address] | | | | | | [phone] | | | | | | | | +--------+ + + + + | 03/31/ | Office | Orthopedic Surgery | Melquiades Baez | | | 2019 | Visit | | [address] | | | | | | [place], | | | | | | [place] [address] | | | | | | [phone] | | | | | | | | +--------+ + + + + | 04/21/ | Office | Nephrology | Isiah Jade MD | | | 2019 | Visit | | [address] [facility] | | | | | | [address] [place] | | | | | | [address] | | | | | | | | +--------+ + + + + | 05/07/ Office | Cardiology | Charlee Oswald | | | 2019 | Visit | | [address] | | | | | | [address] | | | | | | [facility] [place] [place] [address] | | | | | | [phone] | | | | | | | [...]
--- OUTSIDE RECORDS SUMMARY | ~2020-03-21 | XMS | Encounter Summary ---
Demographics + + + | Address | [address] | | | [place] [address] | + + + | Home Phone | | + + + | Preferred Language | Unknown | + + + | Marital Status | | + + + | Yarsanism Affiliation | 1001 | + + + | Race | Unknown | + + + | Ethnic Group | Unknown | + + + Author + + + | Author | [facility] | | | and [place] | + + + | Organization | [facility] | | [...] [place] | | | | | [address] | | + + + + + | Deanna Lawson | ECON | Unknown | | + + + + + Care Team Providers + +------+ + | Care Printed Circuit Board Panels Developer Name | Role | Phone | [...] + + | 12/01/ | Telephone | [facility] | Charlee Oswald | Testing | | 2020 | | CARDIOLOGY [facility] | [address] | | | | | [address] | [place] | | | | | [address] | [place] [address] | | | | | [place] | [phone] | | | | | [address] | | | | | | [phone] | | | +--------+ + + + [...] [address] | | | | | | [place] [address] | | | | | | [phone] | | | | | | | | +--------+ + + + + | 03/24/ | Hospital | | Anna Edouard, | Esophagitis | | 2019 | Encounter | | MD [address] | | | | | | [place] [address] | | | | | | [phone] | | | | | | | | +--------+ + + + + | 03/24/ | Surgery | | Anna Edouard, | EGD | | 2019 | | | MD [address] | | | | | | [place] [address] | | | | | | [phone] | | | | | | | | +--------+ + + + + | 03/31/ | Office | Orthopedic Surgery | Melquiades Baez | | | 2019 | Visit | | [address] | | | | | | [place] | | | | | | [place] [address] | | | | | | [phone] | | | | | | | | +--------+ + + + + | 04/21/ | Office | Nephrology | Isiah Jade MD | | | 2019 | Visit | | [address] | | | | | | [address] [place] | | | | | | [address] | | | | | | | | +--------+ + + + + | 05/07/ | Office | Cardiology | Charlee Oswald | | | 2019 | Visit | | [address] | | | | | | [address] | | | | | | [place] [address] | | | | | | [phone] | | | | | | | [...]
--- NOTE | 2020-03-21 14:27 | NUR ---
PATIENT ARRIVED TO MED SURG APPROXIMATELY 1400. PATIENT IS UNSTEADY ON FEET, STANDING WEIGHT DONE, PATIENT ASSISTED TO BED. ADMISSION STARTED. DR. DIAZ IN TO SEE PATIENT.
--- NOTE | 2020-03-21 14:30 | NUR ---
PT DIRECT ADMIT TO ROOM 114. PT ON ROOM AIR ,LUNG SOUND WITH CRACKLE SIN BILATERAL BASES EXPIRATORY WHEEZE THROUGHOUT. BOWEL TONES ACTIVE, DENIES NAUSEA. PT ALERT AND ORIENTED BUT FATIGUED. PT WITH EDEMA IN BLE THROUGH HIPS AND ABD AND IN RUE. IV LASIX GIVEN. RIVERO CATH INSERTED PER ORDER. ADMISSION INTAKE COMPLETED. CHEST XRAY COMPLETED. PT DENIES OTHER NEEDS AT THIS TIME.
--- NOTE | 2020-03-21 15:09 | NUR ---
[facility] COVID SWAB COLLECTED
--- NOTE | 2020-03-21 15:38 | NUR ---
MED REC COMPLETE
--- NOTE | 2020-03-21 19:10 | NUR ---
PT UP TO BSC W 2 PA AT THIS TIME, DENIES C/O PAIN.
--- NOTE | 2020-03-21 20:47 | NUR ---
DR DIAZ NOTIFIED VERBALLY OF PTS LOW UO OF AFTER GETTING IV LASIX EARLIER IN AM SHIFT. NEW ORDERS FOR LASIX 80MG IV IX TONIGHT ORDERED VERBALLY.
--- NOTE | 2020-03-21 21:33 | NUR ---
Pt coop with assessment, on room air, lungs exp wheexing and dim at bases, pacemaker r side, irregular heart rate. received 80mg Lasix iv x1 as per new orders. Skin r side terrance bandage from axillary area to wrist. edema R hand 3+, elevated in pillows, scabbed over area healing. scabbed over areas in R leg, 2+ edema. elevated. Few scabbed over areas L arm specially by L elbow and below, healing, dry. hands 1+ edema. L leg with fluid filled blisters several scabbed areas 4+ edema, elevated. edematous scrotum and penile area, elevated, rash present in both groin areas and buttocks. barrier cream applied. f/c care done, f/c draining dark yellow-orange/pink colored urine. emptied prior to giving Lasix. HS care done, pt did own cooperative. CBG wnl, no coverage needed. HOB elevated to his comfort on fluid restriction, call light at bedside
--- NOTE | 2020-03-22 00:01 | NUR ---
RESTING, HOB ELEVATED, NO RESP DISTRESS AT THIS TIME, ON ROOM AIR, CALL LIGHT ATBEDSIDE, F/C PATENT
--- NOTE | 2020-03-22 02:41 | NUR ---
awakesn easily, f/c drained 675 cc urine. no c/o sob with exertion when up to bsc, no bm, passed gas. uses call light apropriately
--- NOTE | 2020-03-22 05:43 | NUR ---
PT HAS SLEPT MOST OF THIS SHIFT. RECEIVED LASIX 80MG X1 AT 2100 PER ORDERS. F/C PATENT, DRAINING QS [id number] COLORED URINE. UP TO BSC X3, NO BM, ALERT, NO C/O PAIN. EVELYNE WRAP R ARM, EDEMATOUS R HAND MORE THAN LEFT. L LEG MORE EDEMATOUS THAN RIGHT. BLISTERS ON LEFT LEG, MULTIPLE SCABBED AND SCRATCHED OVER AREAS OVER BOTH ARMS R CHEST, AND LEGS, EDEMATOUS HIP AREAS AND ASCITIC LARGE, DISTENDED ABD. PT FOLLOWS INSTRUCTIONS WELL, ON FLUID RESTRICTION, TOLERATING WELL. SL PATENT. ON ROOM AIR, PT HAD EXP WHEEZING AND DIM LUNG SOUNDS AT BEGINING OF SHIFT WITH SLIGHT SOB NOTED WITH EXERTION. IMPROVED AFTER LASIX GIVEN, LUNGS DIM AT THIS TIME BILAT. TOLERATING MOVING TO BS BETTER TOO. USES CALL LIGHT APPROPRIATELY ASPIRATION AND FALL PRECAUTIONS IN PLACE.
--- NOTE | 2020-03-22 07:59 | NUR ---
pt awake sitting up in bed. right arm dressing changed and terrance re-applied. denies discomforts or needs of, breakfast served
--- NOTE | 2020-03-22 08:25 | NUR ---
patient was finished with breakfast tray, patient had a milk and an orange juice totaled to 387 intake fo the morning, tallied on the fluid restrictions.
--- NOTE | 2020-03-22 08:57 | NUR ---
PATIENT BLOOD SUGAR CHECK DONE AND ALSO CHANGED HIS BED LINEN. PATIENT UP IN CHAIR.
--- NOTE | 2020-03-22 11:25 | NUR ---
PT TOLERATES 100% OF MORNING MEAL. DENIES SOB OR OTHER DISCOMFORTS. PT UP TO THE CHAIR DOZING, CALL LIGHT IN LAP
--- NOTE | 2020-03-22 15:04 | NUR ---
I ASKED PATIENT IF HE WOULD LIKE TO TAKE A SHOWER TODAY AND HE REFUSED.
--- NOTE | 2020-03-22 15:04 | NUR ---
PT CONTINUES UP IN THE CHAIR THIS SHIFT DENIES SOB OR OTHER DISCOMFORTS. PT WATCHING TV, DOZES OFF AND ON. STATES HE IS TIRED.
--- NOTE | 2020-03-22 16:56 | NUR ---
Received report from JIAN Gómez. Patient sitting up in chair.
--- NOTE | 2020-03-22 19:31 | NUR ---
back to bed from bsc, no c/o pain call light at bedside
--- NOTE | 2020-03-22 20:40 | NUR ---
RIVERO/KAZ CARE DONE.
--- NOTE | 2020-03-22 20:54 | NUR ---
Repositioned in bed, on rooma, lungs L very dim t/o w faint exp wheezing, R crackles and loud wheezing auscultated. no c/o sob. R arm elevated in pillows, 3+ edema, Dressing mid upper arm to below elbow in place. L arm, R amr, R chest, bilat legs scabbed over areas healing. Edema R arm/hand 1+, L leg 4+ pitting edema, good cms, faint pedal pulses, elevated in pillows, r leg 2+, good cms, elevated, pitting edema noted too. scrotal and penile area 2_ edema, elevated, barrier lotion to catalino area/groin red area and buttocks area, had several bm's today. uses bsc. f/c patnt, hs and f/c care done. pt states he is comfortable and feels better. call lig at bedside., cbg 154, will receive 1unit insulin
--- NOTE | 2020-03-22 23:04 | NUR ---
BROUGHT SOME SNACKS APPLE SAUCE AND FOZIA CRACKERS PER PATIENT'S REQUEST.
--- NOTE | 2020-03-23 01:15 | NUR ---
awake, repositioned in bed, c/o R arm and L leg pain 5/10, medicated with tylenol 500mg po, Decreaed edema of arm noted, gauze removed from R upper arm and replaced with terrance wrap dressing, healing scabbed over areas. elevated in pillow, continues on fluid restriction
--- NOTE | 2020-03-23 02:14 | NUR ---
RESTING, HOB ELEVATED, R ARM, L LEG ELEVATED, F/C PATENT. NO FURTHER C/O PAIN. GOES BACK TO SLEEP, EYES CLOSED, CONT ON FLUID RESTRICTION
--- NOTE | 2020-03-23 04:25 | NUR ---
RESTING, EYES CLOSED, NO RESP DISTRESS, ON ROOM AIR, LUNGS WITH EXP WHEEZING EARLIER IN SHIFT, CLEAR W DIM AT BASES. NO COUGH, DECEREASED EDEMA OF R HAND, HIPS, L LEG NOTED. MULTIPLE SCABBED OVER AREAS OVER SHOULDER,CHEST, ARMS AND LEGS HEALING, DRESSING OVER R MID ARM TO ELBOW INTACT, LEGS AND R AMR ELEVATED. REDNESS OVER GROING AREAS AND EDEMATOUS PENILE AND SCROTAL AREAS, ELEVATED, BARRIER CREAM TO GROIN AND KAZ AREA , . F/C PATENT. PT TO BSC W 2-3 PA, HAD SEVERAL BMS YESTERDAY. PT ON DAILY WEIGHT. TOOK TYLENOL X1 PER C/O R ARM PAIN, EFFECTIVE, CONTINUES ON 1800CC FLUID RESTRICTION. TOLERATING WELL. CBG 154, RECEIVED 1 UNIT HUMALOG SS INSULIN. USES CALL LIGHT APPROPRIATELY
--- NOTE | 2020-03-23 07:43 | NUR ---
PT AWAKE FOR BEDSIDE REPORT, AGREES HE FEELS BETTER TODAY STATES HE SLEPT "OKAY" DENIES SOB OR OTHER DISCOMFORTS
--- NOTE | 2020-03-23 08:20 | NUR ---
PATIENT EATING BREAKFAST, NURSE CHECKED BLOOD SUGAR, NOTING ELSE TO REPORT AT THIS TIME
--- NOTE | 2020-03-23 11:02 | NUR ---
PT HAD ECHO CARDIOGRAM WELL TOLERATED. UP TO WORK WITH P/T
--- NOTE | 2020-03-23 11:30 | NUR ---
SPOKE WITH PATIENT IN ROOM. PATIENT LIVES WITH AND GRANDDAUGHTER. DAUGHTER LIVES IN [place] AND COMES TO HELP ALSO. HE HAS A FWW. HE DOES NOT DRIVE ANYMORE, FAMILY TAKES HIM TO APPOINTMENTS. HE DENIES PROBLEMS WITH AFFORDING MEDS, FOOD OR UTILITIES. HE FEELS SAFE TO RETURN HOME WITH FAMILY. DISCUSSED WITH HIM THAT DR DIAZ PLACED A HOSPICE CONSULT FOR HIM. HE STATES HE DOES WANT TO HAVE SOME INFORMATION REGARDING HOSPICE, BUT HE WANTS A CHANCE TO TALK WITH HIS FAMILY FIRST. ASKS IF HE CAN HAVE HOSPICE TALK WITH THEM ALL AFTER HE GOES HOME. I TOLD HIM THAT IS POSSIBLE, YES. HE STATES HE WANTS TO CONSIDER HOSPICE, HE IS TIRED OF BEING IN THE HOSPITAL SO MUCH, BE KNOWS "THIS IS GONNA GET WORSE AND I JUST WANT TO BE AT HOME". DISCUSSED I WILL CONTACT HOSPICE WHEN HE IS GOING HOME, AND THEY WILL CALL HIM AND SET UP A TIME TO COME MEET THEM. ASKED WHICH AGENCY HE WOULD PREFER, OPTIONS ARE [facility] AND [facility]. HE THINKS PROBABLY [facility].
--- NOTE | 2020-03-23 13:53 | NUR ---
PT SITTING UP IN THE CHAIR WATCHING TV, BREATHING EVEN AND UNLABORED. RIVERO PUTTING OUT GOOD QUANTITY. PT STATES HE FEELS IMPROVED OVER YESTERDAY. CALL LIGHT IN HAND PT DENIES NEEDS OF
--- NOTE | 2020-03-23 14:18 | NUR ---
VISITED WITH PT-HE IS ALERT, ORIENTED AND SITTING IN CHAIR. PT IS HAVING TROUBLE BREATHING DEPENDING ON POSITION. WOULD LIKE TO SIT UP-KNOWS RECLINED IS BETTER. PT TALKED ABOUT HOSPICE. HAD GOOD DISCUSSION REGARDING THIS VERY IMPORTANT DECISION. PT BEGAN TO SHARE STORIES OF HIS FAMILY. HE LOVES THEM ALL VERY MUCH. JUST TIRED OF WHAT HE IS EXPERIENCING NOW. ALSO GAVE NEEDLE BAR MOLDER ON END OF LIFE DECISIONS AND LEFT A BOOKLET THAT MAY HELP. HAD PRAYER WITH PT
--- NOTE | 2020-03-23 14:23 | NUR ---
PATIENT IN CHAIR RESTING. CALL LIGHT IN REACH. NO FURTHER NEEDS AT THIS TIME.
--- NOTE | 2020-03-23 18:48 | NUR ---
PT TOLERATES EVENING MEAL WITHOUT C/O. STATES HE IS "COUGHING UP A BUNCH OF PHLEM" REPORTS BREATHING BETTER TODAY. LUNG SOUNDS ARE NOTABLY BETTER. PT STATES HIS WILL BE COMING IN TOMORROW. CALL LIGHT IN REACH DENIES NEEDS OF
--- NOTE | 2020-03-23 19:10 | NUR ---
BEDSIDE REPORT RECEIVED FROM JIAN HU. pt UP IN CHAIR. RIVERO DRAINING CLEAR YELLOW URINE. CALL LIGHT IN LAP. NO REQUESTS AT THIS TIME. VERBALIZES UNDERSTANDING TO USE CALL LIGHT BEFORE GETTING UP.
--- NOTE | 2020-03-23 20:15 | NUR ---
PT CALLED, ASSISTED UP FROM BSC. SMALL BM NOTED. PT ASSISTED BACK TO BED. SMALL SKIN TEAR NOTED ON R WRIST. ASSESSMENT COMPLETE. MEDICATIONS GIVEN, CBG CHECKED AND VITALS COMPLETE. NO FURTHER NEEDS AT THIS TIME. CALL LIGHT IN REACH.
--- NOTE | 2020-03-23 20:33 | NUR ---
V/S AND I&O AND RIVERO CARE DONE AND CHARTED.
--- NOTE | 2020-03-23 22:49 | NUR ---
CHECKED ON pt. APPEARS TO BE SLEEPING, EYES CLOSED, BREATHING UNLABORED. LIGHTS OFF IN ROOM. RIVERO DRAINING CLEAR YELLOW URINE.
--- NOTE | 2020-03-24 03:00 | NUR ---
CALL LIGHT ANSWERED, SOME LEAKING NOTED AROUND CATHETER, JIAN MCMULLEN ASSESSING CATHETER, DRAINING CLEAR YELLOW URINE. pt ASSESSMENT COMPLETE. BILATERAL CRACKLES AUSCULTATED LOWER LOBES. 3+ EDEMA BLE, RIGHT ARM, ABDOMEN. RIGHT ARM ELEVATED ON PILLOWS. REPOSITIONED IN BED. CALL LIGHT IN REACH. VSS.
--- NOTE | 2020-03-24 08:41 | NUR ---
PATIENT SITTING UP IN BED TAKING HIS BREAKFAST. ÁNGEL SALINAS UPDATED. CALL LIGHT WITHIN REACH. NO OTHER NEEDS AT THIS TIME
--- NOTE | 2020-03-24 09:21 | NUR ---
alert and oriented, hob elevated, on room air, faint crackles at bases, no sob with exertion, abd distendedn jane, edema l leg, hips ad scrotol/penile area, multiple scabbed over areas over r shoulder, arms, legs and r chest. f/c patent, draining light cranberry colored urine. sl Larm patent. received Lasix 80mg IV. ate 100% diet. Continues on fluid restriction tolerating well
--- NOTE | 2020-03-24 10:26 | NUR ---
UP TO BSC, HAD SOFT BM, SCANT AMOUNT OF RED DRAINAGE NOTED AT PENILE SHAFT, F/C PATENT DRAINING LIGHT CRANBERRY COLORED URINE. WILL LET DR LOPEZ NOW. PT STARTED IT WAS LEAKING LAST NIGHT AND THEY TRY TO PUT IT BACK IN".CONT TO OBSERVE, BACK TO CHAIR, COOP 2PA/FWW. TOLERATED WELL, NO SOB NOTED. MUCH IMPROVED AFFECT AND STAMINE
--- NOTE | 2020-03-24 10:29 | NUR ---
PATIENT USING THE COMMODE. PATIENT BACKS TO CHAIR, ONE PERSON ASSISTING WITH WALKER. VITAL SIGNS AND I&O DONE. LINENS CHANGED. ICE WATER GIVEN. CALL LIGHT WITHIN REACH. NO OTHER NEEDS AT THIS TIME
--- NOTE | 2020-03-24 11:10 | NUR ---
Spoke with Andres and his . Plans on dc tomorrow or the next. Wants to go home.
--- NOTE | 2020-03-24 11:19 | NUR ---
Dr Anton notified of pt having scant amount of red drainage at penile shft and of light cranberry colored urine in f/c. vo to dc f/c obtained. f/c dc'd at 1115. pt infromed of procedure, "I always have a hard time with tthe urinel" aware to let us know ehen he feels the urge and if no output in 4-6hrs that a bladder scanning was to be done and may have to had f/c back on if urine rention . stated understanding. 16fr f/c dc'd, tip intact.
--- NOTE | 2020-03-24 12:27 | NUR ---
PT SITTING IN CHAIR, EATING LUNCH AND WATCHING TV. PT MENTINED THAT HIS FAMILY WAS MEETING WITH HOSPICE LATER TODAY. PT FEELS IT IS THE RIGHT DECISION FOR HIM-HE WANTS TO BE HOME. GAVE ENCOURGEMENT AND BLESSING. WILL CONTINUE TO FOLLOW
--- NOTE | 2020-03-24 12:58 | NUR ---
pt received lasix 80mg iv as per orders, denies need to urinate, 'they got me up again and i had a bm, did not feel like i had to urinate stated" pt aware if no urine output by [id number] that a bladder scanneing was due to check for urine retention, stated understanding
--- NOTE | 2020-03-24 13:45 | NUR ---
pt voided 225 clear yellow urine using urinal, penis and scrotum area more edematous than earlier in shift, no new orders, aware
--- NOTE | 2020-03-24 14:43 | NUR ---
PATIENT SITTING UP IN CHAIR. VITAL SIGNS AND I&O DONE. LOW PULSE. RN NOTIFIED. CALL LIGHT WITHIN REACH. NO OTHER NEEDS AT THIS TIME
--- NOTE | 2020-03-24 15:48 | NUR ---
CALL LIGHT ANSWERED. PATIENT SITTING UP IN CHAIR. PATIENT USES THE BASE COMMODE. ONE PERSON ASSISTING WITH WALKER. PATIENT BACKS TO CHAIR. WARM BLANKET PROVIDED. CALL LIGHT WITHIN REACH. NO OTHER NEEDS AT THIS TIME
--- NOTE | 2020-03-24 17:09 | NUR ---
PATIENT SITTING UP IN CHAIR. VITAL SIGNS AND I&O DONE. CALL LIGHT WITHIN REACH. NO OTHER NEEDS AT THIS TIME
--- NOTE | 2020-03-24 17:20 | NUR ---
pt up in chair most of this shift. tolerating well, has used bsc and has had small soft bms, red [place] area. f/c was draining light cranberry colored urine, dc'd, has voided QS, clear yellow urine. On room air, exp wheezing and fine crackles bilat, slight sob at this time w exertion. received Lasix IV 80mg, decreased edema of r hand and legs noted, L leg 3+ pitting edema with fluid filled blisters elevatged. Edema of hips scrotum and penis w/o changes. Tolerating fluid restriction. uses call light appropriately. CM in room and talked with about pt, pt does not want to discuss hospice choices at this time until he gets home and talks to his childresn, No c/o pain, hob elevated, calm and cooperative, CBG 173 at this time, received 1 unit insulin
--- NOTE | 2020-03-24 19:10 | NUR ---
REPORT RECEIVED FROM JIAN REBOLLEDO. pt UP IN CHAIR. CALL LIGHT IN LAP. pt STATES HAS BEEN TIRED TODAY. PLAN TO ASSIST BACK TO BED EARLY TONIGHT.
--- NOTE | 2020-03-24 20:15 | NUR ---
ASSISTED PATIENT TO THE BEDSIDE COMMODE. PATIENT IS BACK IN BED. CALL LIGHT IN REACH. NO OTHER NEEDS AT THIS TIME.
--- NOTE | 2020-03-24 20:39 | NUR ---
pt BACK IN BED WITH DINO LOPEZ ASSIST. VSS. ASSESSMENT COMPLETE. EDEMA 1+ RUE, ELEVATED ON PILLOW, ABDOMEN, 2+ EDEMA RLE, 3+ LLE, LEGS ELEVATED ON PILLOW. HOB ELEVATED. LUNG SOUNDS CLEAR UPPER LOBES, CRACKLES BILATERALLY LOWER LOBES. pt DENIES SOB AT REST. CBG 153, SS INSULIN ADMINISTERED ORDERED. CALL LIGHT IN REACH. NO REQUESTS AT THIS TIME.
--- NOTE | 2020-03-24 21:30 | NUR ---
CALL LIGHT ANSWERED. CALL LIGHT DROPPED, HANDED TO pt. pt DENIES TOILETING NEEDS OR ADDITIONAL REQUESTS.
--- NOTE | 2020-03-24 22:54 | NUR ---
CALL LIGHT ANSWERED. ASSISTED TO USE URINAL FOR 200 ML VOID, CLEAR YELLOW URINE. ATTENDS IN PLACE. CALL LIGHT IN REACH.
--- NOTE | 2020-03-25 00:05 | NUR ---
pt UP TO BSC WITH [employer] SINTA, 1PA.
--- NOTE | 2020-03-25 01:31 | NUR ---
CALL LIGHT ANSWERED. PATIENT IS UP FOR BEDSIDE COMMODE TO VOID. PATIENT IS BACK IN BED.CALL LIGHT WITHIN REACH.
--- NOTE | 2020-03-25 03:50 | NUR ---
CALL LIGHT ANSWERED. pt ASSISTED TO USE URINAL. ASSESSMENT COMPLETE. pt CONVERSING ABOUT HIS LIFE, STATES IT REALLY HELPS TO VISIT WITH SOMEONE ABOUT EVERYTHING. CALL LIGHT AND PERSONAL SUPPLIES IN REACH.
--- NOTE | 2020-03-25 04:46 | NUR ---
CALL LIGHT ANSWERED. PT REQUESTS TO USE THE URINAL. NO FURTHER REQUESTS AT THIS TIME. CALL LIGHT AND BEDSIDE TABLE WITHIN REACH.
--- NOTE | 2020-03-25 06:26 | NUR ---
pt RESTED WELL THROUGHOUT SHIFT. 1[place] [facility] [place] VOIDING QS IN URINAL, FREQUENT VOIDS. USING CALL LIGHT APPROPRIATELY. pt REFLECTING ON LIFE, AFFAIRS FOR GOING HOME ON HOSPICE, APPEARS TO HAVE A POSITIVE OUTLOOK. 2-3+ PITTING EDEMA EXTREMITIES AND ABDOMEN, EXTREMITIES ELEVATED TOLERABLE. CRACKLES AUSCULTATED BILATERALLY IN BASES. SOME SOB ON EXERTION.
--- NOTE | 2020-03-25 09:09 | NUR ---
PATIENT UP IN CHAIR, FACE AND HANDS WSHED BEFORE BREAKFAST. VITALS AND I&OS CHARTED, FRESH ICE WATER GIVEN. CALL LIGHT IN REACH
--- NOTE | 2020-03-25 10:30 | NUR ---
Spoke with Andres and he is feeling better. Discussed hospice and referral. He is now ready for a referral to be sent. He plans on dc to home today. Informed I will fax his chart to [facility] as he has requested. Updated I spoke with Dr. Muñoz and if needed pt can be admitted next week. H&P, progress notes, face sheets, med list faxed to Martina at [facility]. Called and spoke with pt's Marissa and informed she may recieve a call from Hospice as Parveen has requested admission. Understanding stated as she states he has been considering Hospice. He does not want to continue to return to the hospital.
[2020-03-25] MEDS ORDERED: CARVEDILOL6.25 MG PO (12:07)
--- NOTE | 2020-03-25 12:11 | NUR ---
HAD DISCUSSION W[facility] PT REGARDING HOSPICE. THIS IS PT'S DECISION, BUT I FEEL HE IS GETING UPPOSITION FROM HIS FAMILY WHICH IS COMPL47+-ICATING THE MATTER. GAVE ENCOURAGEMENT AND A N.PAPER. WILL FOLLOW NEEDED
--- NOTE | 2020-03-25 12:56 | NUR ---
PT UP TO THE BEDSIDE COMMODE VOIDED AND HAD A BM AT THIS TIME. NEW ATTENDS PLACED. PT BACK TO THE CHAIR. SALINE LOCKED DC'D DUE TO PT WILL BE DISCHARGED HOME. PT CALLED AND DAUGHTER FOR A RIDE.
--- NOTE | 2020-03-25 13:15 | NUR ---
ASSISTED PT TO GET DRESSED. ALL MEDICATIONS AND PERSONAL BELONGS RETURNED WITH PT.
== END 2020-03-25 13:25 | disposition home or self-care (01) | DRG 291 ==
LOC: MS 11:47
PROVIDERS: ADMIT Student in an Organized Health Care Education/Training Program
DX: I13.0 Hypertensive heart and chronic kidney disease with heart failure and stage 1 through stage 4 chronic kidney disease, or unspecified chronic kidney disease (principal); I50.33 Acute on chronic diastolic (congestive) heart failure; N18.4 Chronic kidney disease, stage 4 (severe); I48.20 Chronic atrial fibrillation, unspecified; I69.351 Hemiplegia and hemiparesis following cerebral infarction affecting right dominant side; E11.22 Type 2 diabetes mellitus with diabetic chronic kidney disease; D63.1 Anemia in chronic kidney disease; E78.5 Hyperlipidemia, unspecified; Z66 Do not resuscitate; K70.30 Alcoholic cirrhosis of liver without ascites; I27.20 Pulmonary hypertension, unspecified; Z79.4 Long term (current) use of insulin; Z95.0 Presence of cardiac pacemaker
CPT/HCPCS: 36415; 51702; 71045; 80048; 83735; 83880; 85025; 93306; 94640; 94668; 94760; 97162; 97165; C9803; J1815; J1940; U0002